=== PATIENT | female | born 1990 | race Caucasian/White ===

== ENCOUNTER 2016-06-26 10:29 | Emergency (ER) | payer OTHER ==
[2016-06-26] MEDS ORDERED: SODIUM CHLORIDE 0.9% 1,000 ML IV ONE (10:42)
[2016-06-26] MEDS ORDERED: ONDANSETRON 4 MG/2 ML VIAL IVP STA (10:55)
[2016-06-26] MEDS ORDERED: ONDANSETRON 4 MG/2 ML VIAL ONE (10:56)
[2016-06-26] MEDS ORDERED: ONDANSETRON ODT 4 MG TABLET ONE (11:01)
[2016-06-26] MEDS ORDERED: ONDANSETRON ODT 4 MG TABLET TL STA (11:13)
[2016-06-26] MEDS ORDERED: SODIUM CHLORIDE 0.9% 2,000 ML IV ONE (12:28)
== END 2016-06-26 16:28 | disposition home or self-care (01) ==
DX: E86.0 Dehydration (principal); R55 Syncope and collapse; R11.10 Vomiting, unspecified
CPT/HCPCS: 36415; 80053; 81003; 83605; 83690; 84703; 85025; 87040; 93005; 93010; 96361; 96374; 99284; Q0162

== ENCOUNTER 2016-12-08 13:33 | Emergency (ER) | payer OTHER ==
[2016-12-08 14:42] LABS: BILIRUBIN,URINE NEGATIVE (NEGATIVE)
[2016-12-08 14:43] LABS: UA w/ MICROSCOPIC CHARGE YES
--- NOTE | 2016-12-08 14:47 | ED Physician Documentation ---
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 She had heavy spotting yesterday, and has had bright red blood and a dime size clot today. She has had vomiting 2 in the past 24 hours. She denies fever or dysuria, and denies lightheadedness. She does not know her blood type. Review of Systems Constitutional: denies: Fever Nose: denies: Congestion Cardiac: denies: Chest pain / pressure Respiratory: denies: Dyspnea, Cough GI: reports: Vomiting. denies: Abdominal Pain : reports: Vaginal bleeding. 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 CLINICAL DATA ANALYST: Ovarian cysts - Past Surgical History Past Surgical History: No - Present Medications Home Medications: Ambulatory Orders Medication Instructions Recorded Confirmed Ondansetron Odt [Zofran] 4 mg TL Q6H PRN #10 tablet 06/26/16 - Allergies Allergies/Adverse Reactions: Allergies Allergy/AdvReac Type Severity Reaction Status Date / Time hydrocodone bitartrate * AdvReac Mild Nausea Verified 12/08/16 13:40 [From Lortab] - Social History Does the pt smoke?: No Smoking Status: Never smoker Does the pt drink ETOH?: No Does the pt have substance abuse?: No - Immunizations Immunizations are current?: Yes - POLST Patient has POLST: No PD ED PE NORMAL - Vitals Vital signs reviewed: Yes (Normal) - General General: 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, Well developed/nourished - HEENT HEENT: Atraumatic - Neck Neck: No adenopathy - Cardiac Cardiac: RRR, No murmur - Respiratory Respiratory: No respiratory distress, Clear bilaterally - Abdomen Abdomen: Soft, Non tender - Female Female : Wind Operations Manager present - Back Back: No CVA TTP - Derm Derm: No rash - Extremities Extremities: No edema, No calf tenderness / cord - Neuro Neuro: 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, No motor deficit, Normal speech PD ED PE EXPANDED - Female Female : Normal external, Vaginal Bleeding (Scant dark blood, with a small clot in the cervical loss.), CMT, Enlarged uterus (Consistent with dates.), Cultures sent, Wind Operations Manager present. No: Dilated cervix, Tissue present, Adnexal Mass, Adnexal Tenderness Results - Vitals Vitals: Vital Signs - 24 hr 12/08/16 12/08/16 13:37 17:42 Temperature 36.5 C Heart Rate 74 66 Respiratory 17 14 Rate Blood Pressure 102/60 105/63 O2 Saturation 100 98 Oxygen O2 Source Room air - Labs Labs: Laboratory Tests 12/08/16 12/08/16 12/08/16 13:55 14:22 14:22 HCG, Quant 45900.00 Urine Color YELLOW Urine Clarity CLEAR Urine pH 6.0 Ur Specific [place] >=1.030 H Urine Protein NEGATIVE Urine Glucose (UA) NEGATIVE Urine Ketones NEGATIVE Urine Occult Blood LARGE H Urine Nitrite NEGATIVE Urine Bilirubin NEGATIVE Urine Urobilinogen 0.2 (NORMAL) Ur Leukocyte Esterase NEGATIVE Urine RBC 6-10 H Urine WBC 0-3 Ur Squamous Epith Cells MOD Squamous H Urine Bacteria Rare Urine Mucus Marked Strands Ur Microscopic Review INDICATED Urine Culture Comments NOT INDICATED Blood Type A NEGATIVE - Rads (name of study) Pelvic U/S with Transvag Radiology: Prelim report reviewed, EMP read contemporaneously, See rad report ( 1. Single viable intrauterine at estimated gestational age of 7 weeks 2 days, with estimated date of delivery 07/29/2017, based on crown-rump length, which is less than expected with clinical dates. 2. Low heart rate of 39 bpm noted. 3. No ultrasound abnormalities identified to explain bleeding.) PD MEDICAL DECISION MAKING - ED course Complexity details: reviewed results, re-evaluated patient, considered differential, d/w patient, d/w family ED course: The patient's presentation is significant for threatened or inevitable miscarriage. Pelvic ultrasound reveals a single intrauterine , but with a low heart rate of 39. The patient is relatively asymptomatic while in the emergency department, denying any cramping pain or ongoing vaginal bleeding at the time of discharge. Her blood type is found to be Rh-, so RhoGAM was administered IM. I discussed her condition with Dr. Guevara, on-call for Dr. Hurst, the patient's fish frog or oyster farmer. Since the patient does not want to pursue any intervention at this time, Dr. Guevara advises that she follow-up in the clinic on Saturday. I discussed with the patient and her the results of the ultrasound and expected course of , symptomatic treatment and outpatient follow-up, as well as potentially worrisome signs or symptoms that should prompt reevaluation in the emergency department. Departure - Departure Disposition: Home, Self Care Clinical Impression: Threatened in first trimester Condition: Stable Instructions: ED Miscarriage Poss Follow-Up: Shyla Hurst MD [Primary Care Provider] - Comments: Plenty of fluids. He can use Tylenol if needed for pain. Follow-up with your fish frog or oyster farmer this week. Call to schedule an appointment. Return to the emergency department if you develop increasing cramping pelvic pain, increasing vaginal bleeding, or otherwise worsening symptoms. Discharge Date/Time: 12/08/16 17:42
[2016-12-08 14:54] LABS: UR CULTURE IF IND NOT INDICATED; WBC,URINE 0-3 /HPF (0-5)
--- NOTE | 2016-12-08 16:33 | Ultrasound Preliminary Report ---
Exam: US OB First Trimester IMPRESSION: 1. Single viable intrauterine at EGA 7 weeks 2 days with KYLEIGH 07/29/2017 based on crown-rump length, which is less than expected with clinical dates. 2. Assigned dating is KYLEIGH 07/29/2017 based on crown-rump length.. 3. Low heart rate of 39 bpm noted. 4. No ultrasound abnormalities identified to explain bleeding. [facility] SITE ID: [id number]
--- NOTE | 2016-12-08 16:36 | Ultrasound Report ---
REVISED: THIS REPORT WAS ORIGINALLY SIGNED ON 12/08/2016 @ 1636. ORDERS LINKED ON 12/11/2016. EXAM: FIRST TRIMESTER OBSTETRIC ULTRASOUND (Less than 11 weeks) EXAM DATE: 12/08/2016 04:07 PM. CLINICAL HISTORY: Vaginal bleeding at 8 weeks gestation. LMP: 09/21/2016. COMPARISONS: None. TECHNIQUE: Transabdominal and transvaginal ultrasound examination with static image documentation. CLINICAL DATES: EGA 11 weeks 1 day with KYLEIGH 06/28/2015 based on LMP. ASSESSMENT: Gestational Sac: Single intrauterine. Mean gestational sac diameter: 13.4 mm = 6 weeks 1 day. Embryo: CRL (crown-rump length) 10.8 mm = 7 weeks 2 days. Cardiac activity: 39 beats per minute. Yolk sac: 4.2 mm. Amniotic fluid: Not accurately assessed at this gestational age. Early placenta: Not visible at this gestational age. Other: No perigestational fluid collection demonstrated. MATERNAL STRUCTURES: Uterus: Anteverted. Unremarkable. Cervix: Closed. Right Ovary: 2.3 x 1.3 x 1.9 cm, volume 29.7 cc. Unremarkable. Left Ovary: 3.5 x 2.1 x 2.6 cm, volume 10.0 cc. Unremarkable. Free Fluid: None. Other: None. IMPRESSION: 1. Single viable intrauterine at EGA 7 weeks 2 days with KYLEIGH 2017 based on crown-rump length, which is less than expected with clinical dates. 2. Assigned dating is KYLEIGH 07/29/2017 based on crown-rump length.. 3. Low heart rate of 39 bpm noted. 4. No ultrasound abnormalities identified to explain bleeding. [facility] Referring Provider Line: [phone] SITE ID: [id number]
[2016-12-08] MEDS ORDERED: RHO(D) IMMUNE GLOBULIN 300 MCG SYRINGE IM ONE (17:04)
[2016-12-08 17:43] VITALS: BP 105/63
== END 2016-12-08 17:42 | disposition home or self-care (01) ==
LOC: ED 13:33
DX: O20.0 Threatened abortion (principal); Z3A.08 8 weeks gestation of pregnancy
CPT/HCPCS: 36415; 76801; 76817; 81001; 81003; 84702; 86900; 86901; 87086; 87491; 87591; 96372; 99283; 99284

== ENCOUNTER 2016-12-27 03:08 | Emergency (ER) | payer OTHER ==
[2016-12-27] MEDS ORDERED: SODIUM CHLORIDE 0.9% 1,000 ML IV ONE ×2 (03:26→04:49)
[2016-12-27] MEDS ORDERED: ONDANSETRON 4 MG/2 ML VIAL IVP STA ×2 (03:26→06:07)
[2016-12-27] MEDS ORDERED: HYDROmorphone 1 MG/ML SYRINGE IVP STA (03:42)
[2016-12-27 03:44] LABS: BASOPHILS # (AUTO) 0.1 10^3/uL (0.0-0.1); BASOPHILS % (AUTO) 1.2 %; EOSINOPHILS # (AUTO) 0.2 10^3/uL (0.0-0.7); EOSINOPHILS % (AUTO) 3.7 %; HCT - HEMATOCRIT 33.9 % (37.0-47.0); HGB - HEMOGLOBIN 11.3 g/dL (12.0-16.0); LYMPHOCYTES # (AUTO) 1.8 10^3/uL (1.5-3.5); LYMPHOCYTES % (AUTO) 31.9 %; MEAN CORPUSCULAR HEMOGLOBIN 29.9 pg (27.0-31.0); MEAN CORPUSCULAR HGB CONC 33.5 g/dL (32.0-36.0); MEAN CORPUSCULAR VOLUME 89.1 fL (81.0-99.0); MEAN PLATELET VOLUME 7.4 fL (7.9-10.8); MONOCYTES # (AUTO) 0.4 10^3/uL (0.0-1.0); MONOCYTES % (AUTO) 7.4 %; NEUTROPHILS # (AUTO) 3.1 10^3/uL (1.5-6.6); NEUTROPHILS % (AUTO) 55.8 %; RED CELL DISTRIBUTION WIDTH 14.2 % (12.0-15.0); UNCORRECTED WHITE BLOOD COUNT 5.5 x10^3/uL; WHITE BLOOD COUNT 5.5 x10^3/uL (4.8-10.8)
[2016-12-27] MEDS ORDERED: ONDANSETRON 4 MG/2 ML VIAL ONE ×2 (03:46→06:21)
[2016-12-27] MEDS ORDERED: HYDROmorphone 1 MG/ML SYRINGE ONE (03:51)
[2016-12-27 03:58] LABS: ALBUMIN/GLOBULIN RATIO 1.5 (1.0-2.2); BILIRUBIN,TOTAL 0.4 mg/dL (0.2-1.0); BUN - BLOOD UREA NITROGEN 11 mg/dL (6-20); CARBON DIOXIDE - CO2 25 mmol/L (21-32); CHLORIDE 107 mmol/L (101-111); CREATININE 0.9 mg/dL (0.4-1.0); GFR - MDRD 75 (>89); GLUCOSE 113 mg/dL (70-100); LIPASE 48 U/L (22-51); POTASSIUM 3.6 mmol/L (3.5-5.0); SODIUM 140 mmol/L (135-145); TOTAL PROTEIN 6.6 g/dL (6.7-8.2)
[2016-12-27 05:30] VITALS: BP 105/64
--- NOTE | 2016-12-27 06:33 | ED Physician Documentation ---
PD HPI ABD PAIN - Stated complaint Stated Complaint: VOMITING,ABDOMINAL PAIN - Chief complaint Chief Complaint: Abd Pain - History obtained from History obtained from: Patient - Additional information Additional information: Is a 26-year-old female who presents to the onset of nausea and vomiting starting early this morning. She complains of generalized abdominal cramping that is not localized. She denies any preceding illness and has not had any fever, chills, constipation diarrhea or lower urinary symptoms. The patient recently had a miscarriage a couple weeks ago. There is no further vaginal bleeding or discharge. Review of systems: For pertinent positive and negatives in the review of systems please see the history of present illness, otherwise all other systems have been reviewed and are negative. Dragon disclaimer: Parts of this medical record were created using voice recognition technology. Because of the inherent limitations of this system, occasional same sounding word substitutions do occur and persist despite proofreading. Please read the document for context. Review of Systems Constitutional: denies: Fever, Chills GI: reports: Abdominal Pain, Nausea, Vomiting. denies: Abdominal Swelling, Constipation, Diarrhea, Hematemesis, Bloody / black stool : denies: Dysuria PD PAST MEDICAL HISTORY - Past Medical History Cardiovascular: None Respiratory: None Neuro: None Endocrine/Autoimmune: None ENGRAVER PANTOGRAPH: Ovarian cysts - Past Surgical History Past Surgical History: No - Present Medications Home Medications: Ambulatory Orders Medication Instructions Recorded Confirmed Ondansetron Odt [Zofran] 4 mg TL Q6H PRN #14 tablet 12/27/16 traZODone [Desyrel] 1 tab PO DAILY 12/27/16 12/27/16 - Allergies Allergies/Adverse Reactions: Allergies Allergy/AdvReac Type Severity Reaction Status Date / Time hydrocodone bitartrate * AdvReac Mild Nausea Verified 12/08/16 13:40 [From Lortab] - Social History Does the pt smoke?: No Smoking Status: Never smoker Does the pt drink ETOH?: No Does the pt have substance abuse?: No - Immunizations Immunizations are current?: Yes - POLST Patient has POLST: No PD ED PE NORMAL - Vitals Vital signs reviewed: Yes - General General: 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 - HEENT HEENT: Atraumatic - Neck Neck: Supple, no meningeal sign - Cardiac Cardiac: RRR, No murmur, No gallop, No rub - Respiratory Respiratory: No respiratory distress, Clear bilaterally - Abdomen Abdomen: Normal bowel sounds, Non tender - Female Female : Deferred - Back Back: No CVA TTP - Derm Derm: Normal color - Extremities Extremities: No deformity - Neuro Neuro: 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 Results - Vitals Vitals: Vital Signs - 24 hr 12/27/16 12/27/16 12/27/16 03:19 04:25 05:30 Temperature 36.5 C 36.7 C Heart Rate 84 95 88 Respiratory 16 14 15 Rate Blood Pressure 117/96 H 106/67 105/64 O2 Saturation 100 98 98 Oxygen O2 Source Room air - Labs Labs: Laboratory Tests 12/27/16 12/27/16 12/27/16 03:29 03:29 03:29 WBC 5.5 RBC 3.80 L Hgb 11.3 L Hct 33.9 L MCV 89.1 MCH 29.9 MCHC 33.5 RDW 14.2 Plt Count 220 MPV 7.4 L Neut # 3.1 Lymph # 1.8 [place] # 0.4 Eos # 0.2 Baso # 0.1 Absolute Nucleated RBC 0.00 Nucleated RBCs 0.0 Sodium 140 Potassium 3.6 Chloride 107 Carbon Dioxide 25 Anion Gap 8.0 BUN 11 Creatinine 0.9 Estimated GFR (MDRD) 75 L Glucose 113 H Calcium 9.0 Total Bilirubin 0.4 AST 24 ALT < 10 L Alkaline Phosphatase 43 Total Protein 6.6 L Albumin 4.0 Globulin 2.6 Albumin/Globulin Ratio 1.5 Lipase 48 HCG, Quant 73.71 PD MEDICAL DECISION MAKING - ED course Complexity details: reviewed old records ED course: Patient is a well-appearing young female presents with a chief complaint of nausea and vomiting onset early this morning. She is complaining of generalized abdominal cramping but on examination is a soft nontender abdomen. There is mild increased borborygmi. An IV line was started she is given IV fluids and nausea medications. Patient slept for a couple hours 2 L of normal saline were given and she has not had any further episodes of nausea and vomiting. Routine labs are checked and all are normal. She never produced a urine but felt much better and wanted to go home and I thought her urine is probably low yield for problem. At this point in time she looks and feels better she will be discharged home on a small amount of Zofran. Disposition: To home Clinical impression: 1. Acute nausea and vomiting-resolved Departure - Departure Disposition: Home, Self Care Clinical Impression: Abdominal pain Qualifiers: Abdominal location: generalized Qualified Code(s): R10.84 - Generalized abdominal pain Nausea & vomiting Qualifiers: Vomiting type: unspecified Vomiting Intractability: non-intractable Qualified Code(s): R11.2 - Nausea with vomiting, unspecified Instructions: ED Nausea Vomiting Follow-Up: Khurram Thomas ARNP [Primary Care Provider] - Prescriptions: Ondansetron Odt [Zofran] 4 mg TL Q6H PRN #14 tablet PRN Reason: Nausea / Vomiting Discharge Date/Time: 12/27/16 06:21
== END 2016-12-27 06:21 | disposition home or self-care (01) ==
LOC: ED 03:08
DX: R10.84 Generalized abdominal pain (principal)
CPT/HCPCS: 36415; 80053; 83690; 84702; 85025; 96374; 96375; 96376; 99283; 99284; J1170

== ENCOUNTER 2017-02-24 08:55 | Emergency (ER) | payer OTHER ==
[2017-02-24] MEDS ORDERED: SODIUM CHLORIDE FLUSH 0.9% 10 ML SYRINGE IVP ONE ×3 (09:11→13:31)
--- NOTE | 2017-02-24 09:19 | ED Physician Documentation ---
PD HPI ABD PAIN - Stated complaint Stated Complaint: ABD PX - Chief complaint Chief Complaint: Abd Pain - History obtained from History obtained from: Patient, Family - History of Present Illness Timing - onset: Enter time (0100), Last night Timing - duration: Hours Timing - details: Abrupt onset, Still present Quality: Sharp, Pain Location: Suprapubic Improved by: Laying still Worsened by: Moving, Position, Palpation Associated symptoms: Constipation. No: Fever, Nausea, Vomiting Similar symptoms before: Has not had sx before Recently seen: Other (Seen for SI with attempted overdose on hydrocodone 25 days ago.) - Additional information Additional information: 26-year-old female recovering alcoholic has developed acute abdominal pain last night and she has asked her to bring her to the hospital this morning. The patient is not answering questions and is withdrawn. The indicates she has done this previously with painful conditions. He indicates that recently she has had a miscarriage And about 2 months ago she had a D&C done. On her first menstrual period following that she had significant pain associated with the menstrual period And at that time she became withdrawn. The patient has a history of constipation chronically usually has bowel movements every 2-3 days. She has gone 10 days without a bowel movement and yesterday had a bowel movement. The patient has a history of alcoholism and she had been sober for 24 days and began drinking 2 nights ago. She has been taking some ibuprofen for her pains. She last took that yesterday. Review of Systems Constitutional: denies: Fever Ears: denies: Ear pain Nose: denies: Congestion Throat: denies: Sore throat Cardiac: denies: Chest pain / pressure, Palpitations Respiratory: denies: Dyspnea, Cough GI: reports: Abdominal Pain, Constipation. denies: Nausea, Vomiting : denies: Dysuria, Frequency Skin: denies: Rash Musculoskeletal: denies: Neck pain, Back pain, Extremity pain Neurologic: denies: Generalized weakness, Focal weakness, Numbness Psychiatric: reports: Depressed PD PAST MEDICAL HISTORY - Past Medical History Past Medical History: Yes Cardiovascular: None Respiratory: None Neuro: None Endocrine/Autoimmune: None CAT BREEDER: Ovarian cysts, Miscarriage(s) Psych: Depression, Other Other Past Medical History: SI - Past Surgical History Past Surgical History: Yes /CAT BREEDER: Dilation and currettage - Present Medications Home Medications: Ambulatory Orders Medication Instructions Recorded Confirmed traZODone [Desyrel] 1 tab PO DAILY 12/27/16 02/24/17 Prochlorperazine Maleate 10 mg PO Q6HR PRN #10 tablet 02/24/17 [Compazine] Sulfamethoxazole/Trimethoprim 1 each PO BID #10 tablet 02/24/17 [Sulfamethoxazole-Tmp Ds Tablet] Venlafaxine [Effexor] 75 mg PO BID 02/24/17 02/24/17 traMADol [Ultram] 50 mg PO Q6H PRN #20 tablet 02/24/17 - Allergies Allergies/Adverse Reactions: Allergies Allergy/AdvReac Type Severity Reaction Status Date / Time hydrocodone bitartrate * AdvReac Mild Nausea Verified 02/24/17 11:24 [From Lortab] - Social History Does the pt smoke?: No Smoking Status: Never smoker Does the pt drink ETOH?: Yes Does the pt have substance abuse?: No - Immunizations Immunizations are current?: Yes - POLST Patient has POLST: No PD ED PE NORMAL - Vitals Vital signs reviewed: Yes (normal ) - General General: Other (Thin female in the position does not answer questions. AOB ) - HEENT HEENT: Atraumatic, PERRL, EOMI - Neck Neck: Supple, no meningeal sign, No bony TTP - Cardiac Cardiac: RRR, No murmur - Respiratory Respiratory: No respiratory distress, Clear bilaterally - Abdomen Abdomen: Other (The abdomen is rigid and there is gaurding the examining hand is pushed away. ) - Back Back: No CVA TTP, No spinal TTP - Derm Derm: Normal color, Warm and dry, No rash - Extremities Extremities: No deformity, No edema - Neuro Neuro: No motor deficit, No sensory deficit - Psych Psych: Other (mood is withdrawn and the affect is flat) Results - Vitals Vitals: Vital Signs - 24 hr 02/24/17 02/24/17 02/24/17 08:58 10:29 11:35 Temperature 36.8 C 36.8 C Heart Rate 72 99 96 Respiratory 18 20 16 Rate Blood Pressure 108/79 107/57 L 114/43 L O2 Saturation 100 100 100 02/24/17 13:39 Temperature Heart Rate 77 Respiratory 14 Rate Blood Pressure 107/61 O2 Saturation 100 Oxygen O2 Source Room air - Labs Labs: Laboratory Tests 10/02/24/17 02/24/17 09:16 09:16 10:45 WBC 6.6 RBC 4.40 Hgb 12.7 Hct 37.6 MCV 85.3 MCH 28.8 MCHC 33.7 RDW 14.1 Plt Count 249 MPV 8.1 Neut # 3.4 Lymph # 2.6 [place] # 0.4 Eos # 0.1 Baso # 0.1 Absolute Nucleated RBC 0.00 Nucleated RBC % 0.0 Sodium 139 Potassium 3.4 L Chloride 106 Carbon Dioxide 23 Anion Gap 10.0 BUN 8 Creatinine 0.9 Estimated GFR (MDRD) 75 L Glucose 98 Calcium 9.0 Total Bilirubin 0.6 AST 32 ALT 12 Alkaline Phosphatase 47 Total Protein 7.1 Albumin 4.4 Globulin 2.7 Albumin/Globulin Ratio 1.6 Lipase 35 Urine Color Urine Clarity Urine pH Ur Specific [place] Urine Protein Urine Glucose (UA) Urine Ketones Urine Occult Blood Urine Nitrite Urine Bilirubin Urine Urobilinogen Ur Leukocyte Esterase Urine RBC Urine WBC Ur Squamous Epith Cells Urine Bacteria Ur Microscopic Review Urine Culture Comments Urine HCG, Qual Urine Opiates Screen NEGATIVE Ur Oxycodone Screen NEGATIVE Urine Methadone Screen NEGATIVE Ur Propoxyphene Screen NEGATIVE Ur Barbiturates Screen NEGATIVE Ur Tricyclics Screen NEGATIVE Ur Phencyclidine Scrn NEGATIVE Ur Amphetamine Screen NEGATIVE U Methamphetamines Scrn POSITIVE H U Benzodiazepines Scrn POSITIVE H Urine Cocaine Screen NEGATIVE U Cannabinoids Screen NEGATIVE Ethyl Alcohol 140.9 02/24/17 10:45 WBC RBC Hgb Hct MCV MCH MCHC RDW Plt Count MPV Neut # Lymph # [place] # Eos # Baso # Absolute Nucleated RBC Nucleated RBC % Sodium Potassium Chloride Carbon Dioxide Anion Gap BUN Creatinine Estimated GFR (MDRD) Glucose Calcium Total Bilirubin AST ALT Alkaline Phosphatase Total Protein Albumin Globulin Albumin/Globulin Ratio Lipase Urine Color YELLOW Urine Clarity CLOUDY Urine pH 5.5 Ur Specific [place] >=1.030 H Urine Protein 30 H Urine Glucose (UA) NEGATIVE Urine Ketones NEGATIVE Urine Occult Blood LARGE H Urine Nitrite NEGATIVE Urine Bilirubin NEGATIVE Urine Urobilinogen 0.2 (NORMAL) Ur Leukocyte Esterase NEGATIVE Urine RBC TNTC H Urine WBC 6-10 H Ur Squamous Epith Cells FEW Squamous Urine Bacteria Moderate H Ur Microscopic Review INDICATED Urine Culture Comments INDICATED Urine HCG, Qual NEGATIVE Urine Opiates Screen Ur Oxycodone Screen Urine Methadone Screen Ur Propoxyphene Screen Ur Barbiturates Screen Ur Tricyclics Screen Ur Phencyclidine Scrn Ur Amphetamine Screen U Methamphetamines Scrn U Benzodiazepines Scrn Urine Cocaine Screen U Cannabinoids Screen Ethyl Alcohol - Rads (name of study) CT abdomen pelvis with Radiology: Prelim report reviewed (Impression: 1. No acute inflammatory or obstructive process identified. Normal retrocecal appendix. No free air or fluid free fluid. 2. Apparent thickening of the proximal proximal jejunum, likely artifactual related to lumen contraction. Contracted stomach. 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.), EMP read indepedently, See rad report Pelvic ultrasound Radiology: Prelim report reviewed (Impression: Uterus and ovaries appear normal for age.), EMP read indepedently, See rad report Procedures - IVC sono (time) 1338 Bedside IVC sono: IVC measures (cm) (0.69), IVC collapsed c insp (cm) (complete) , Significant dehydration PD MEDICAL DECISION MAKING - ED course Complexity details: reviewed old records, reviewed results, re-evaluated patient , considered differential, d/w patient, d/w family ED course: 26 y/o female with lower abdominal pain severe today appears withdrawn on arrival and in pain. She is found to be significantly dehydrated and saline and antiemetic is applied. She has had severe pain last month under similar situation with her menstral period. Her indicates she has been withdrawn with pain previously similar to this. As she is hydrated and her pain is controlled she begins to talk. Her alcohol level comes back at 140 and her urine is + for benzo and methamphetamine and she denies meth use. She is on Trazodone and this is a known interference with the assay. She does not have adequate control of the nausea with the zofran or the phenergan and she is given compazine with some improvement. She has UTI on evaluation of the urine and she is given IV rocephin and we will put her on some sulfa. Departure - Departure Disposition: 01 Home, Self Care Clinical Impression: Dehydration, Dysmenorrhea Urinary tract infection Qualifiers: Urinary tract infection type: acute cystitis Hematuria presence: without hematuria Qualified Code(s): N30.00 - Acute cystitis without hematuria Instructions: ED Dehydration, ED UTI Cystitis Female, ED Cramping Menstrual Follow-Up: Khurram Thomas ARNP [Primary Care Provider] - Prescriptions: Prochlorperazine Maleate [Compazine] 10 mg PO Q6HR PRN #10 tablet PRN Reason: Nausea / Vomiting Sulfamethoxazole/Trimethoprim [Sulfamethoxazole-Tmp Ds Tablet] 1 each PO BID # 10 tablet traMADol [Ultram] 50 mg PO Q6H PRN #20 tablet PRN Reason: Pain
[2017-02-24 09:23] LABS: BASOPHILS # (AUTO) 0.1 10^3/uL (0.0-0.1); BASOPHILS % (AUTO) 1.2 %; EOSINOPHILS # (AUTO) 0.1 10^3/uL (0.0-0.7); EOSINOPHILS % (AUTO) 1.6 %; HCT - HEMATOCRIT 37.6 % (37.0-47.0); HGB - HEMOGLOBIN 12.7 g/dL (12.0-16.0); LYMPHOCYTES # (AUTO) 2.6 10^3/uL (1.5-3.5); LYMPHOCYTES % (AUTO) 39.8 %; MEAN CORPUSCULAR HEMOGLOBIN 28.8 pg (27.0-31.0); MEAN CORPUSCULAR HGB CONC 33.7 g/dL (32.0-36.0); MEAN CORPUSCULAR VOLUME 85.3 fL (81.0-99.0); MEAN PLATELET VOLUME 8.1 fL (7.9-10.8); MONOCYTES # (AUTO) 0.4 10^3/uL (0.0-1.0); MONOCYTES % (AUTO) 6.5 %; NEUTROPHILS # (AUTO) 3.4 10^3/uL (1.5-6.6); NEUTROPHILS % (AUTO) 50.9 %; RED CELL DISTRIBUTION WIDTH 14.1 % (12.0-15.0); UNCORRECTED WHITE BLOOD COUNT 6.6 x10^3/uL; WHITE BLOOD COUNT 6.6 x10^3/uL (4.8-10.8)
[2017-02-24 09:39] LABS: ALBUMIN/GLOBULIN RATIO 1.6 (1.0-2.2); BILIRUBIN,TOTAL 0.6 mg/dL (0.2-1.0); CREATININE 0.9 mg/dL (0.4-1.0); POTASSIUM 3.4 mmol/L (3.5-5.0); TOTAL PROTEIN 7.1 g/dL (6.7-8.2)
[2017-02-24] MEDS ORDERED: ONDANSETRON 4 MG/2 ML VIAL IVP STA ×2 (09:43→10:17)
[2017-02-24] MEDS ORDERED: SODIUM CHLORIDE 0.9% 1,000 ML IV ONE ×3 (09:45→14:18)
[2017-02-24] MEDS ORDERED: ONDANSETRON 4 MG/2 ML VIAL ONE ×2 (09:45→10:26)
[2017-02-24] MEDS ORDERED: IOPAMIDOL-300 100 ML VIAL ONE (10:46)
[2017-02-24 11:00] LABS: BILIRUBIN,URINE NEGATIVE (NEGATIVE); PH,URINE 5.5 PH (5.0-7.5)
[2017-02-24 11:16] LABS: UA w/ MICROSCOPIC CHARGE YES
[2017-02-24 11:20] LABS: HCG UR QUAL NEGATIVE
[2017-02-24] MEDS ORDERED: PROMETHAZINE INJ 25 MG in SODIUM CHLORIDE 0.9% 50 ML IV STA (11:22)
[2017-02-24 11:23] LABS: UR CULTURE IF IND INDICATED
[2017-02-24] MEDS ORDERED: PROMETHAZINE 25 MG/1 ML VIAL ONE (11:31)
--- NOTE | 2017-02-24 12:14 | CT Preliminary Report ---
Exam: CT ABDOMEN/PELVIS W/ IMPRESSION: 1. No acute inflammatory or obstructive process identified. Normal retrocecal appendix. No free air o r free fluid. 2. Apparent thickening of proximal jejunum, likely artifactual related to luminal contraction. Contra cted stomach. 3. 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 [facility] SITE ID: [id number]
--- NOTE | 2017-02-24 12:17 | CT Report ---
EXAM: CT ABDOMEN AND PELVIS EXAM DATE: 02/24/2017 11:13 AM. CLINICAL HISTORY: Acute abdominal pain, rigid abdomen. COMPARISONS: Abdominal ultrasound 02/13/2016. TECHNIQUE: Routine helical CT imaging was performed through the abdomen and pelvis. IV contrast: 100 cc Isovue-300. Enteric contrast: No. Reconstructions: Coronal and sagittal. In accordance with CT protocol optimization, one or more of the following dose reduction techniques w ere utilized for this exam: automated exposure control, adjustment of mA and/or KV based on patient s ize, or use of iterative reconstructive technique. FINDINGS: Lung Bases: Clear. Liver: Normal size and contour. Slight steatosis. A calcified granuloma in the left lobe. No other fo otis lesion. Widely patent vasculature. Gallbladder/Bile Ducts: No calcified gallstone, gallbladder wall thickening, or ductal dilatation. Spleen: No splenomegaly. Pancreas: Somewhat generous pancreatic head with right lateral extension, likely developmental varian t. No ductal dilatation or peripancreatic infiltration. Adrenal Glands: No nodule. Kidneys: Unremarkable. No hydronephrosis or abnormal parenchymal enhancement. Peritoneal Cavity/Bowel: Contracted stomach. Apparent thickening of proximal jejunum, without perient maximilian infiltration, question artifactual related to luminal contraction. No intestinal dilatation. Nor mal retrocecal appendix. No free fluid, free air, loculated collection, or phlegmon identified. No me senteric adenopathy by CT size criteria. Pelvic Organs: Contracted bladder. 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 No ovarian cysts. No free fluid. Vasculature: No aneurysms or other significant abnormality. Bones: No significant abnormality. IMPRESSION: 1. No acute inflammatory or obstructive process identified. Normal retrocecal appendix. No free air o r free fluid. 2. Apparent thickening of proximal jejunum, likely artifactual related to luminal contraction. Contra cted stomach. 3. 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 [facility] Referring Provider Line: [phone] SITE ID: [id number]
[2017-02-24] MEDS ORDERED: cefTRIAXone 1 GM in SODIUM CHLORIDE 0.9% MINIBAG 100 ML IV STA (13:17)
[2017-02-24] MEDS ORDERED: cefTRIAXone 1 GM VIAL ONE (13:31)
--- NOTE | 2017-02-24 13:37 | Ultrasound Preliminary Report ---
Exam: US PELVIC NON OB W/DOPPLER IMPRESSION: Uterus and ovaries appear normal for age. [facility] SITE ID: [id number]
--- NOTE | 2017-02-24 13:40 | Ultrasound Report ---
EXAM: PELVIC ULTRASOUND EXAM DATE: 02/24/2017 12:53 PM. CLINICAL HISTORY: Pelvic pain ?torsion. COMPARISON: Pelvic CT today. TECHNIQUE: Realtime transabdominal pelvic scan performed to identify the uterus and adnexa and as an overview of other pelvic structures, with static image documentation. FINDINGS: Uterus: 7.5 x 4.1 x 4.9 cm, volume 81 cc. Anteverted position. Normal overall size and echotexture. Masses: None. Endometrium: 10.5 mm. Normal. Cervix: Unremarkable. Right Ovary: 2.9 x 1.6 x 2.5 cm, volume 6.2 cc. There are multiple small follicles. Blood flow presen t on Doppler. Left Ovary: 3 x 2.1 x 2.0 cm, volume 6.5 cc. There are multiple small follicles. Blood flow seen on D oppler. Free Fluid: Small Other: None. IMPRESSION: Uterus and ovaries appear normal for age. [facility] Referring Provider Line: [phone] SITE ID: [id number]
[2017-02-24] MEDS ORDERED: KETOROLAC 60 MG/2 ML VIAL IVP STA (13:45)
[2017-02-24] MEDS ORDERED: KETOROLAC 60 MG/2 ML VIAL ONE (13:56)
[2017-02-24] MEDS ORDERED: PROCHLORPERAZINE 10 MG/2 ML VIAL IVP STA (14:38)
[2017-02-24] MEDS ORDERED: diphenhydrAMINE INJ 50 MG/ML VIAL IVP STA (14:39)
[2017-02-24] MEDS ORDERED: diphenhydrAMINE INJ 50 MG/ML VIAL ONE (14:45)
[2017-02-24] MEDS ORDERED: PROCHLORPERAZINE 10 MG/2 ML VIAL ONE (14:46)
[2017-02-24 15:46] VITALS: BP 104/57
[2017-02-24] MEDS ORDERED: IOPAMIDOL-300 100 ML VIAL IVP ONE (17:36)
== END 2017-02-24 16:00 | disposition home or self-care (01) ==
LOC: ED 08:55
DX: E86.0 Dehydration (principal); N94.6 Dysmenorrhea, unspecified; N30.00 Acute cystitis without hematuria; R11.0 Nausea
CPT/HCPCS: 36415; 74177; 76856; 80053; 80306; 80320; 81001; 81025; 83690; 85025; 87040; 87086; 93975; 96361; 96365; 96367; 96375; 96376; 99283; 99284; J7040; Q9967; 81003

== ENCOUNTER 2017-04-17 04:40 | Emergency (ER) | payer OTHER ==
[2017-04-17] MEDS ORDERED: ONDANSETRON 4 MG/2 ML VIAL IVP STA ×2 (04:50→05:48)
[2017-04-17] MEDS ORDERED: SODIUM CHLORIDE 0.9% 1,000 ML IV ONE (04:50)
[2017-04-17] MEDS ORDERED: FAMOTIDINE 20 MG/2 ML VIAL IVP STA (04:51)
--- NOTE | 2017-04-17 04:55 | ED Physician Documentation ---
PD HPI NVD - Stated complaint Stated Complaint: NAUSEA,VOMITING,DIARRHEA - Chief complaint Chief Complaint: Abd Pain - History obtained from History obtained from: Patient - History of Present Illness Timing - onset: Yesterday Timing - details: Gradual onset, Still present Associated symptoms: Abdominal pain. No: Fever Similar symptoms before: No diagnosis Recently seen: Not recently seen - Additonal information Additional information: Patient is a 26 year old female with no significant past medical history who is presenting to the emergency department for nausea, vomiting and diarrhea. patient states that it started yesterday. throughout the day she has not been able to hold down anything including pedialyte and applesauce. Patient states that she did take her trazadone, but she woke up in the middle of the night with sweats and through up again. Patient denies any change in diet or sick contacts. Review of Systems Constitutional: denies: Fever, Chills Eyes: denies: Decreased vision, Photophobia Ears: denies: Ear pain, Drainage/discharge Nose: denies: Congestion Throat: reports: Reviewed and negative Respiratory: reports: Reviewed and negative GI: reports: Abdominal Pain, Nausea, Vomiting, Diarrhea : reports: Reviewed and negative Skin: reports: Reviewed and negative Musculoskeletal: denies: Neck pain, Back pain, Extremity pain Neurologic: reports: Generalized weakness. 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(s) Psych: Depression, Other - Past Surgical History Past Surgical History: Yes /CENTRIFUGAL CHILLER TECHNICIAN: Dilation and currettage - Present Medications Home Medications: Ambulatory Orders Medication Instructions Recorded Confirmed traZODone [Desyrel] 1 tab PO DAILY 12/27/16 04/17/17 Ondansetron Odt [Zofran] 4 mg TL Q6H PRN #14 tablet 04/17/17 - Allergies Allergies/Adverse Reactions: Allergies Allergy/AdvReac Type Severity Reaction Status Date / Time hydrocodone bitartrate * AdvReac Mild Nausea Verified 04/17/17 04:45 [From Lortab] - Social History Does the pt smoke?: No Smoking Status: Never smoker Does the pt drink ETOH?: Yes Does the pt have substance abuse?: No - Immunizations Immunizations are current?: Yes - POLST Patient has POLST: No PD ED PE NORMAL - Vitals Vital signs reviewed: Yes - General General: 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 - HEENT HEENT: Atraumatic, PERRL - Neck Neck: Supple, no meningeal sign, No JVD - Cardiac Cardiac: RRR, No murmur - Respiratory Respiratory: No respiratory distress, Clear bilaterally - Abdomen Abdomen: Soft - Derm Derm: Normal color, Warm and dry, No rash - Extremities Extremities: No deformity, No edema - Neuro Neuro: 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, No motor deficit, No sensory deficit, Normal speech Eye Opening: Spontaneous Motor: Obeys Commands Verbal: Oriented GCS Score: 15 PD ED PE EXPANDED - HEENT HEENT: Dry mucous membranes - Abdomen Abdomen: Tender to palpation, Generalized/diffuse. No: Rebound, Guarding Results - Vitals Vitals: Vital Signs - 24 hr 04/17/17 04:43 Temperature 36.4 C L Heart Rate 71 Respiratory 16 Rate Blood Pressure 108/76 O2 Saturation 100 Oxygen O2 Source Room air - Labs Labs: Laboratory Tests 04/17/17 04:50 Urine Color YELLOW Urine Clarity CLEAR Urine pH 6.0 Ur Specific [place] >=1.030 H Urine Protein NEGATIVE Urine Glucose (UA) NEGATIVE Urine Ketones NEGATIVE Urine Occult Blood NEGATIVE Urine Nitrite NEGATIVE Urine Bilirubin NEGATIVE Urine Urobilinogen 0.2 (NORMAL) Ur Leukocyte Esterase NEGATIVE Ur Microscopic Review NOT INDICATED Urine Culture Comments NOT INDICATED Urine HCG, Qual NEGATIVE PD MEDICAL DECISION MAKING - ED course Complexity details: reviewed old records, reviewed results, re-evaluated patient , considered differential, d/w patient ED course: Patient was seen and examined at bedside. Patient's vital signs were within normal limits. IV access was gained. patient was treated with a fluid bolus, pepcid and zofran. Patient's urine was collected and showed no ketonuria, or severe concentration. Patient was well appearing and required no further work up at this time. Patient was stable for discharge with outpatient follow up. Departure - Departure Disposition: 01 Home, Self Care Clinical Impression: Gastroenteritis Condition: Good Instructions: ED Gastroenteritis Viral Follow-Up: Khurram Thomas ARNP [Primary Care Provider] - Within 3 Days (if symptoms persist) Prescriptions: Ondansetron Odt [Zofran] 4 mg TL Q6H PRN #14 tablet PRN Reason: Nausea / Vomiting Comments: Your symptoms today are being caused by gastroenteritis. It is normally self limited meaning it will get better over the next few days. it is important to take the zofran for nausea and drink gatorade, pedialyte or other electrolyte solution to stay hydrated. You shoudl follow up with your doctor if your symptoms persist for more than the next three days. You may return to the emergency department at any time for new, worsening or uncontrollable symptoms. Forms: Activity restrictions
[2017-04-17] MEDS ORDERED: ONDANSETRON 4 MG/2 ML VIAL ONE ×2 (04:59→05:53)
[2017-04-17 05:04] LABS: BILIRUBIN,URINE NEGATIVE (NEGATIVE)
[2017-04-17 05:15] LABS: HCG UR QUAL NEGATIVE; UA CHARGE (STRIP ONLY) YES; UR CULTURE IF IND NOT INDICATED
[2017-04-17] MEDS ORDERED: FAMOTIDINE 20 MG/50 ML 50 ML IV ONE ×2 (05:16→05:21)
[2017-04-17 06:29] VITALS: BP 120/61
== END 2017-04-17 06:34 | disposition home or self-care (01) ==
LOC: ED 04:40
DX: K52.9 Noninfective gastroenteritis and colitis, unspecified (principal)
CPT/HCPCS: 81001; 81003; 81025; 87086; 96361; 96365; 96375; 96376; 99284

== ENCOUNTER 2017-07-18 04:10 | Emergency (ER) | payer OTHER ==
[2017-07-18] MEDS ORDERED: SODIUM CHLORIDE 0.9% 1,000 ML IV ONE (04:29)
[2017-07-18] MEDS ORDERED: ONDANSETRON 4 MG/2 ML VIAL IVP STA (04:29)
[2017-07-18 04:38] LABS: BILIRUBIN,URINE NEGATIVE (NEGATIVE); GLUCOSE, URINE (UA) NEGATIVE (NEGATIVE); KETONES,URINE (UA) 15 mg/dL (NEGATIVE); LEUKOCYTE ESTERASE, URINE NEGATIVE (NEGATIVE); NITRITE,URINE NEGATIVE (NEGATIVE); OCCULT BLOOD,URINE LARGE (NEGATIVE); PH,URINE 5.5 PH (5.0-7.5); PROTEIN,URINE 100 mg/dL (NEGATIVE); UROBILINOGEN,URINE 0.2 (NORMAL) E.U./dL (NORMAL)
[2017-07-18 04:51] LABS: CLARITY,URINE HAZY (CLEAR); HCG UR QUAL NEGATIVE
[2017-07-18 04:52] LABS: BACTERIA,URINE Few /HPF (None Seen); RBC,URINE TNTC /HPF (0-5); SQUAMOUS EPITHELIAL CELL,UR MOD Squamous (<= Few)
[2017-07-18] MEDS ORDERED: ONDANSETRON ODT 4 MG TABLET TL STA ×2 (04:52→05:40)
[2017-07-18] MEDS ORDERED: PROMETHAZINE 25 MG SUPP PR STA (04:53)
--- NOTE | 2017-07-18 04:58 | ED Physician Documentation ---
PD HPI NVD - Stated complaint Stated Complaint: NAUSEA - Chief complaint Chief Complaint: Abd Pain - History obtained from History obtained from: Family - History of Present Illness Timing - onset: Today Timing - details: Abrupt onset, Still present Associated symptoms: No: Fever, Abdominal pain Contributing factors: No: Sick contact, Bad food Similar symptoms before: Work up / diagnostics, Treatment Recently seen: Not recently seen - Additonal information Additional information: Patient is a 26 year old female with a history of alcohol abuse and multiple visits for abdominal pain, nausea and vomiting who is presenting to the emergency department for vomiting. states that she started vomiting tonight but patient refuses to answer any questions. 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) Psych: Depression, Other - Past Surgical History Past Surgical History: Yes /SIZING SPONGER: Dilation and currettage - Present Medications Home Medications: Ambulatory Orders Medication Instructions Recorded Confirmed Ondansetron Odt [Zofran] 4 mg TL Q6H PRN #20 tablet 07/18/17 Promethazine Supp [Phenergan Supp] 25 mg [place] DAILY #14 supp 07/18/17 - Allergies Allergies/Adverse Reactions: Allergies Allergy/AdvReac Type Severity Reaction Status Date / Time hydrocodone bitartrate * AdvReac Mild Nausea Verified 07/18/17 04:21 [From Lortab] - Social History Does the pt smoke?: No Smoking Status: Never smoker Does the pt drink ETOH?: Yes Does the pt have substance abuse?: No - Immunizations Immunizations are current?: Yes - POLST Patient has POLST: No PD ED PE NORMAL - Vitals Vital signs reviewed: Yes - General General: 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, No acute distress - HEENT HEENT: Atraumatic - Neck Neck: Supple, no meningeal sign - Respiratory Respiratory: No respiratory distress - Derm Derm: Normal color, No rash - Extremities Extremities: No deformity, No edema - Neuro Eye Opening: Spontaneous PD ED PE EXPANDED - Cardiac Cardiac: Tachy - Psych Psych: Withdrawn, Non verbal, Other (flat affect) Results - Vitals Vitals: Vital Signs - 24 hr 07/18/17 07/18/17 04:19 06:13 Temperature 36.4 C L Heart Rate 123 H 98 Respiratory 20 20 Rate Blood Pressure 102/75 112/69 O2 Saturation 96 96 Oxygen O2 Source Room air - Labs Labs: Laboratory Tests 07/18/17 04:25 Urine Color YELLOW Urine Clarity HAZY Urine pH 5.5 Ur Specific [place] 1.020 Urine Protein 100 H Urine Glucose (UA) NEGATIVE Urine Ketones 15 H Urine Occult Blood LARGE H Urine Nitrite NEGATIVE Urine Bilirubin NEGATIVE Urine Urobilinogen 0.2 (NORMAL) Ur Leukocyte Esterase NEGATIVE Urine RBC TNTC H Urine WBC 0-3 Ur Squamous Epith Cells MOD Squamous H Urine Bacteria Few Ur Microscopic Review INDICATED Urine Culture Comments NOT INDICATED Urine HCG, Qual NEGATIVE PD MEDICAL DECISION MAKING - ED course Complexity details: reviewed old records, reviewed results, re-evaluated patient , considered differential, d/w patient, d/w family ED course: Patient was seen and examined at bedside. urine was collected and patient was not . previous notes were reviewed. An attempt at an IV was unsuccessful and patient was uncooperative with a very odd affect. Patient was treated with zofran ODT and phenagran rectal suppository. Patient's symptoms improved moderately. Patient's states that she drinks excessively every day. Patient did drink yesterday. Patient had an episode of spitting up after eating ice chips. patient was teated with additional zofran and reglan. After treatment patient asked if she could go home. Patient's tachycardia resolved. Departure - Departure Disposition: 01 Home, Self Care Clinical Impression: Alcoholic gastritis Condition: Good Instructions: ED Gastritis Prescriptions: Ondansetron Odt [Zofran] 4 mg TL Q6H PRN #20 tablet PRN Reason: Nausea / Vomiting Promethazine Supp [Phenergan Supp] 25 mg [place] DAILY #14 supp Comments: Your symptoms today are secondary to alcohol abuse. I know it is difficult but the only way to help your issues is to quit drinking. You have been prescribed a few different anti nausea medications. You should follow up with your doctor if your symptoms persist.
[2017-07-18] MEDS ORDERED: PROMETHAZINE 12.5 MG SUPP PR STA (05:40)
[2017-07-18] MEDS ORDERED: METOCLOPRAMIDE 10 MG/2 ML VIAL IM STA (05:48)
[2017-07-18 06:14] VITALS: BP 112/69
== END 2017-07-18 06:26 | disposition home or self-care (01) ==
LOC: ED 04:10
DX: K29.20 Alcoholic gastritis without bleeding (principal); F10.10 Alcohol abuse, uncomplicated
CPT/HCPCS: 81001; 81025; 96372; 99283; J2765; J8498; Q0162; 81003; 87086

== ENCOUNTER 2017-09-01 19:13 | Emergency (ER) | payer OTHER ==
[2017-09-01] MEDS ORDERED: HYDROmorphone 1 MG/ML CARPUJECT IVP STA (19:38)
[2017-09-01] MEDS ORDERED: SODIUM CHLORIDE 0.9% 1,000 ML IV ONE ×2 (19:38→21:22)
[2017-09-01] MEDS ORDERED: ONDANSETRON 4 MG/2 ML VIAL IVP STA ×2 (19:38→21:22)
--- NOTE | 2017-09-01 19:41 | ED Physician Documentation ---
PD HPI ABD PAIN - Stated complaint Stated Complaint: ABD PX - Chief complaint Chief Complaint: Abd Pain - History obtained from History obtained from: Patient, Family - History of Present Illness Timing - onset: How many days ago (3) Timing - duration: Days (3) Timing - details: Gradual onset Pain level max: 10 Pain level now: 10 Quality: Aching, Pain Location: RLQ Radiation: Other (States her entire abdomen now hurts) Improved by: Laying still Worsened by: Moving, Palpation Associated symptoms: Nausea, Vaginal bleeding (States currently on her menses). No: Fever, Vomiting, Hematemesis, Diarrhea, Constipation, Melena, Hematochezia , Dysuria Similar symptoms before: Has not had sx before Recently seen: Not recently seen Review of Systems Ten Systems: 10 systems reviewed and negative Constitutional: denies: Fever, Chills Ears: denies: Ear pain Nose: denies: Rhinorrhea / runny nose, Congestion Cardiac: denies: Palpitations Respiratory: denies: Dyspnea, Cough GI: reports: Abdominal Pain, Nausea. 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: Ovarian cysts, Miscarriage(s) Psych: Depression, Other - Past Surgical History Past Surgical History: Yes /OFFICE HELPER CLERICAL: Dilation and currettage - Present Medications Home Medications: Ambulatory Orders Medication Instructions Recorded Confirmed Ondansetron Odt [Zofran] 4 mg TL Q6H PRN #20 tablet 07/18/17 Promethazine Supp [Phenergan Supp] 25 mg [place] DAILY #14 supp 07/18/17 Ondansetron Odt [Zofran] 4 mg TL Q6H PRN #10 tablet 09/01/17 Pantoprazole [Protonix] 40 mg PO DAILY #30 tablet 09/01/17 Promethazine [Phenergan] 25 mg PO Q6H PRN #10 tab 09/01/17 Tramadol HCl 50 mg PO Q6H PRN #10 tablet 09/01/17 - Allergies Allergies/Adverse Reactions: Allergies Allergy/AdvReac Type Severity Reaction Status Date / Time hydrocodone bitartrate * AdvReac Mild Nausea Verified 07/18/17 04:21 [From Lortab] - Social History Does the pt smoke?: No Smoking Status: Never smoker Does the pt drink ETOH?: Yes Does the pt have substance abuse?: No - Immunizations Immunizations are current?: Yes - POLST Patient has POLST: No PD ED PE NORMAL - Vitals Vital signs reviewed: Yes - General General: 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, Well developed/nourished, Other (intoxicated, flat affect) - HEENT HEENT: PERRL, Ears normal, Moist mucous membranes, Pharynx benign - Neck Neck: Supple, no meningeal sign - Cardiac Cardiac: RRR, Strong equal pulses - Respiratory Respiratory: No respiratory distress, Clear bilaterally - Abdomen Abdomen: Other (Diffuse abdominal tenderness. Voluntary guarding.) - Derm Derm: Warm and dry, No rash - Extremities Extremities: No edema, No calf tenderness / cord - Neuro Neuro: 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 - Psych Psych: Other (flat) Results - Vitals Vitals: Vital Signs - 24 hr 09/01/17 09/01/17 09/01/17 19:16 19:53 21:00 Temperature 36.3 C L Heart Rate 80 88 88 Respiratory 18 18 16 Rate Blood Pressure 116/74 123/76 128/78 O2 Saturation 98 96 95 09/01/17 22:48 Temperature Heart Rate 70 Respiratory 16 Rate Blood Pressure 97/58 L O2 Saturation 95 Oxygen O2 Source Room air - Labs Labs: Laboratory Tests 09/01/17 09/01/17 09/01/17 19:28 19:28 19:28 WBC 3.0 L RBC 4.11 L Hgb 11.6 L Hct 35.4 L MCV 86.0 MCH 28.1 MCHC 32.6 RDW 17.3 H Plt Count 212 MPV 7.0 L Neut # 1.6 Lymph # 1.0 L [place] # 0.2 Eos # 0.0 Baso # 0.1 Absolute Nucleated RBC 0.00 Nucleated RBC % 0.1 Sodium 141 Potassium 3.5 Chloride 103 Carbon Dioxide 29 Anion Gap 9.0 BUN 5 L Creatinine 0.7 Estimated GFR (MDRD) 100 Glucose 105 H Calcium 8.1 L Total Bilirubin 0.3 AST 34 ALT 11 Alkaline Phosphatase 56 Total Protein 7.0 Albumin 4.0 Globulin 3.0 Albumin/Globulin Ratio 1.3 Lipase 35 Serum HCG, Qual Urine Color Urine Clarity Urine pH Ur Specific [place] Urine Protein Urine Glucose (UA) Urine Ketones Urine Occult Blood Urine Nitrite Urine Bilirubin Urine Urobilinogen Ur Leukocyte Esterase Urine RBC Urine WBC Ur Squamous Epith Cells Urine Bacteria Ur Microscopic Review Urine Culture Comments Urine Opiates Screen Ur Oxycodone Screen Urine Methadone Screen Ur Propoxyphene Screen Ur Barbiturates Screen Ur Tricyclics Screen Ur Phencyclidine Scrn Ur Amphetamine Screen U Methamphetamines Scrn U Benzodiazepines Scrn Urine Cocaine Screen U Cannabinoids Screen Ethyl Alcohol 422.1 09/01/17 09/01/17 19:28 20:52 WBC RBC Hgb Hct MCV MCH MCHC RDW Plt Count MPV Neut # Lymph # [place] # Eos # Baso # Absolute Nucleated RBC Nucleated RBC % Sodium Potassium Chloride Carbon Dioxide Anion Gap BUN Creatinine Estimated GFR (MDRD) Glucose Calcium Total Bilirubin AST ALT Alkaline Phosphatase Total Protein Albumin Globulin Albumin/Globulin Ratio Lipase Serum HCG, Qual NEGATIVE Urine Color YELLOW Urine Clarity CLEAR Urine pH 6.0 Ur Specific [place] 1.020 Urine Protein NEGATIVE Urine Glucose (UA) NEGATIVE Urine Ketones NEGATIVE Urine Occult Blood LARGE H Urine Nitrite NEGATIVE Urine Bilirubin NEGATIVE Urine Urobilinogen 0.2 (NORMAL) Ur Leukocyte Esterase NEGATIVE Urine RBC 0-5 Urine WBC 0-3 Ur Squamous Epith Cells MANY Squamous H Urine Bacteria Many H Ur Microscopic Review INDICATED Urine Culture Comments NOT INDICATED Urine Opiates Screen POSITIVE H Ur Oxycodone Screen NEGATIVE Urine Methadone Screen NEGATIVE Ur Propoxyphene Screen NEGATIVE Ur Barbiturates Screen NEGATIVE Ur Tricyclics Screen NEGATIVE Ur Phencyclidine Scrn NEGATIVE Ur Amphetamine Screen NEGATIVE U Methamphetamines Scrn NEGATIVE U Benzodiazepines Scrn NEGATIVE Urine Cocaine Screen NEGATIVE U Cannabinoids Screen NEGATIVE Ethyl Alcohol - Rads (name of study) CT abd/pelvis Radiology: Prelim report reviewed, EMP read contemporaneously, See rad report ( Right ovarian cyst. Fatty liver) pelvic US Radiology: Prelim report reviewed, EMP read contemporaneously, See rad report ( Large right ovarian simple cyst, 6.7 x 5.6 x 5.7 cm. No sign of torsion or other abnormality) PD MEDICAL DECISION MAKING - ED course Complexity details: reviewed results, re-evaluated patient, considered differential, d/w patient, d/w family ED course: Patient is a 26-year-old female who presents to the emergency department with abdominal pain, found to have a large right ovarian simple cyst. No evidence of torsion. Discussed the case with gynecology on-call, Dr. Saldaña who recommends follow-up in the office. Patient declines a pelvic examination here. She also declines a transvaginal ultrasound. No evidence of appendicitis or peritonitis. She is intoxicated and we discussed her alcohol use with the patient and her . She had gone to rehab in June 2016, And was sober for approximately 6 months, however she had a miscarriage in December of this last year and started drinking again. She feels like the miscarriage was her fault and has been very depressed about this. She has not seen a counselor, I recommended that she do see a mental health functional for this. Also recommend that she get help with her drinking. Information was given to the patient and her . Will prescribe a small amount of pain medication and nausea medication for home. Will also start on Protonix given that she likely has alcoholic gastritis. Patient and family counseled regarding signs and symptoms for which I believe and urgent re-evaluation would be necessary. Patient with good understanding of and agreement to plan and is comfortable going home at this time This document was made in part using voice recognition software. While efforts are made to proofread this document, sound alike and grammatical errors may occur. Departure - Departure Disposition: Home, Self Care Clinical Impression: Alcohol abuse Ovarian cyst Qualifiers: Laterality: right Qualified Code(s): N83.201 - Unspecified ovarian cyst, right side Condition: Good Instructions: ED Alcohol Intoxication, ED Cyst Ovarian Follow-Up: Khurram Thomas ARNP [Primary Care Provider] - Within 1 week Prescriptions: Ondansetron Odt [Zofran] 4 mg TL Q6H PRN #10 tablet PRN Reason: Nausea / Vomiting Pantoprazole [Protonix] 40 mg PO DAILY #30 tablet Promethazine [Phenergan] 25 mg PO Q6H PRN #10 tab PRN Reason: Nausea / Vomiting Tramadol HCl 50 mg PO Q6H PRN #10 tablet PRN Reason: Abdominal Pain Comments: you should have a repeat ultrasound in 4 weeks with your doctor. Return immediately for worsening pain. You should also seen counseling and treatment for your depression and alcoholism. A pamphlet is attached to these instructions. Do not drink alcohol or drive while on narcotic pain medicine. Note that many narcotic pain relievers also contain tylenol/acetaminophen. Please ensure that your total dose of acetaminophen from all sources does not exceed 3 grams (3000mg) per day. You may constipated on this medication, take a stool softener such as "Colace" twice a day while you are on it. Also recommend a [id number] laxative such as senna or MiraLAX any day that you do not have a bowel movement. If you received narcotic pain medication in the emergency department, do not drive or operate machinery for the next 24 hours. Discharge Date/Time: 09/01/17 22:49
[2017-09-01 19:43] LABS: BASOPHILS # (AUTO) 0.1 10^3/uL (0.0-0.1); BASOPHILS % (AUTO) 2.2 %; EOSINOPHILS % (AUTO) 1.2 %; HGB - HEMOGLOBIN 11.6 g/dL (12.0-16.0); LYMPHOCYTES % (AUTO) 34.3 %; MEAN CORPUSCULAR HEMOGLOBIN 28.1 pg (27.0-31.0); MEAN CORPUSCULAR HGB CONC 32.6 g/dL (32.0-36.0); MONOCYTES # (AUTO) 0.2 10^3/uL (0.0-1.0); MONOCYTES % (AUTO) 8.1 %; NEUTROPHILS # (AUTO) 1.6 10^3/uL (1.5-6.6); NEUTROPHILS % (AUTO) 54.2 %; PLT - PLATELET COUNT 212 10^3/uL (130-450); RED BLOOD COUNT 4.11 10^6/uL (4.20-5.40); RED CELL DISTRIBUTION WIDTH 17.3 % (12.0-15.0)
[2017-09-01 19:55] LABS: ALBUMIN/GLOBULIN RATIO 1.3 (1.0-2.2); BILIRUBIN,TOTAL 0.3 mg/dL (0.2-1.0); CALCIUM 8.1 mg/dL (8.5-10.3); CREATININE 0.7 mg/dL (0.4-1.0)
[2017-09-01] MEDS ORDERED: IOPAMIDOL-300 100 ML VIAL ONE (20:19)
[2017-09-01 20:48] LABS: HCG,QUALITATIVE BLOOD NEGATIVE
[2017-09-01 21:02] LABS: MUDS CUTOFF CONCENTRATIONS CUTOFF CONC BELOW:
[2017-09-01] MEDS ORDERED: IOPAMIDOL-300 100 ML VIAL IVP ONE (21:04)
[2017-09-01 21:05] LABS: BILIRUBIN,URINE NEGATIVE (NEGATIVE); GLUCOSE, URINE (UA) NEGATIVE (NEGATIVE); KETONES,URINE (UA) NEGATIVE (NEGATIVE); LEUKOCYTE ESTERASE, URINE NEGATIVE (NEGATIVE); NITRITE,URINE NEGATIVE (NEGATIVE); OCCULT BLOOD,URINE LARGE (NEGATIVE); PROTEIN,URINE NEGATIVE (NEGATIVE); UROBILINOGEN,URINE 0.2 (NORMAL) E.U./dL (NORMAL)
[2017-09-01 21:06] LABS: CLARITY,URINE CLEAR (CLEAR)
[2017-09-01 21:15] LABS: BACTERIA,URINE Many /HPF (None Seen); RBC,URINE 0-5 /HPF (0-5); SQUAMOUS EPITHELIAL CELL,UR MANY Squamous (<= Few)
[2017-09-01 21:16] LABS: AMPHETAMINE SCREEN,URINE NEGATIVE (NEGATIVE); BENZODIAZEPINES SCREEN, URINE NEGATIVE (NEGATIVE); COCAINE SCREEN URINE NEGATIVE (NEGATIVE); METHADONE SCREEN, URINE NEGATIVE (NEGATIVE); METHAMPHETAMINES SCREEN, URINE NEGATIVE (NEGATIVE); OPIATE SCREEN, URINE POSITIVE (NEGATIVE); OXYCODONE SCREEN, URINE NEGATIVE (NEGATIVE); PROPOXYPHENE SCREEN, URINE NEGATIVE (NEGATIVE); TRICYCLIC ANTIDEPRESSANT,URINE NEGATIVE (NEGATIVE)
--- NOTE | 2017-09-01 22:04 | CT Report ---
EXAM: CT ABDOMEN AND PELVIS EXAM DATE: 09/01/2017 09:17 PM. CLINICAL HISTORY: Abdomen pain, initially right lower quadrant, no diffuse. COMPARISONS: 02/24/2017. TECHNIQUE: Routine helical CT imaging was performed through the abdomen and pelvis. IV contrast: 100 ML ISOVUE 300. Enteric contrast: No. Reconstructions: Coronal and sagittal. In accordance with CT protocol optimization, one or more of the following dose reduction techniques w ere utilized for this exam: automated exposure control, adjustment of mA and/or KV based on patient s ize, or use of iterative reconstructive technique. FINDINGS: Lung Bases: Unremarkable. Liver: Diffuse low-density. Gallbladder/Bile Ducts: Unremarkable. Spleen: Normal. Pancreas: Normal. Adrenal Glands: Normal. Kidneys: Normal. No masses or hydronephrosis. Peritoneal Cavity/Bowel: Normal. No free fluid, free air or adenopathy. No masses or acute inflammato ry process. The appendix is well visualized and normal. Pelvic Organs: Right ovarian 6.2 x 6.2 x 5.9 cm cyst. Otherwise the reproductive organs and bladder a re unremarkable. Vasculature: No aneurysms or other significant abnormality. Bones: No significant abnormality. Other: None. IMPRESSION: 1. Right ovarian cyst. 2. Fatty liver. [facility] Referring Provider Line: [phone] SITE ID: [id number]
[2017-09-01] MEDS ORDERED: PANTOPRAZOLE 40 MG VIAL IVP STA (22:15)
[2017-09-01] MEDS ORDERED: KETOROLAC 60 MG/2 ML VIAL IVP STA (22:16)
[2017-09-01] MEDS ORDERED: PROMETHAZINE INJ 25 MG in SODIUM CHLORIDE 0.9% 50 ML IV STA (22:16)
--- NOTE | 2017-09-01 22:36 | Ultrasound Preliminary Report ---
Exam: US PELVIC W/TRANSVAG+DOPPLER COMP IMPRESSION: Large right ovarian simple cyst, 6.7 x 5.6 x 5.7 cm. No sign of torsion or other abnorma lity. [facility] SITE ID: [id number]
--- NOTE | 2017-09-01 22:36 | Ultrasound Report ---
EXAM: PELVIC ULTRASOUND EXAM DATE: 09/01/2017 10:17 PM. CLINICAL HISTORY: Right pelvic pain. Large cyst on CT. Concern for torsion. COMPARISON: CT today. TECHNIQUE: Realtime transabdominal pelvic scan performed to identify the uterus and adnexa and as an overview of other pelvic structures, with static image documentation. FINDINGS: Uterus: 7.4 x 3.5 x 4.5 cm, volume 60.4 cc. Anteverted position. Normal overall size and echotexture. Masses: None. Endometrium: 4 mm. Normal. Cervix: Unremarkable. Right Ovary: 7.5 x 6.2 x 6.1 cm, volume 149.4 cc. Normal echotexture and blood flow. Large simple cys t 6.7 x 5.6 x 5.7 cm. Left Ovary: 2.4 x 1.4 x 2.2 cm, volume 3.7 cc. Normal echotexture and blood flow. Free Fluid: None. Other: None. IMPRESSION: Large right ovarian simple cyst, 6.7 x 5.6 x 5.7 cm. No sign of torsion or other abnorma lity. [facility] Referring Provider Line: [phone] SITE ID: [id number]
[2017-09-01 22:49] VITALS: BP 97/58
== END 2017-09-01 22:49 | disposition home or self-care (01) ==
LOC: ED 19:13
DX: N83.201 Unspecified ovarian cyst, right side (principal); F10.10 Alcohol abuse, uncomplicated
CPT/HCPCS: 74177; 76830; 76856; 80053; 80306; 80320; 81001; 83690; 84703; 85025; 93975; 96374; 96375; 96376; 99283; J1170; J7040; Q9967; 36415; 81003; 87086; 87491; 87591

== ENCOUNTER 2017-09-02 07:41 | Emergency (ER) | payer OTHER ==
[2017-09-02] MEDS ORDERED: SODIUM CHLORIDE 0.9% 1,000 ML IV ONE (08:09)
[2017-09-02] MEDS ORDERED: LORazepam 2 MG/ML VIAL IVP STA (08:10)
[2017-09-02] MEDS ORDERED: PROCHLORPERAZINE 10 MG/2 ML VIAL IVP STA (08:10)
--- NOTE | 2017-09-02 08:11 | ED Physician Documentation ---
PD HPI NVD - Stated complaint Stated Complaint: N/V - Chief complaint Chief Complaint: Abd Pain - History obtained from History obtained from: Patient - History of Present Illness Timing - onset: How many days ago (3) Timing - duration: Days (3) Timing - details: Gradual onset, Still present Associated symptoms: Abdominal pain, Dizzy, Loss of appetite Contributing factors: Alcohol use Improved by: Laying still Similar symptoms before: Diagnosis (gastritis, alcohol abuse, ovarian cyst) Recently seen: Emergency Dept - Additonal information Additional information: 26-year-old female with a history of alcohol abuse has developed acute right lower quadrant abdominal pain and was seen in the emergency department yesterday. She was diagnosed with an ovarian cyst that was large and she was administered antiemetic and fluid. She has not been able to hold down much of anything overnight and she is come back into the emergency department with nausea and vomiting. She also states that she has some shakiness. Review of Systems Constitutional: reports: Chills, Fatigue, Sweats. denies: Fever Eyes: denies: Decreased vision Ears: denies: Ear pain Nose: denies: Rhinorrhea / runny nose, Congestion Throat: denies: Sore throat Cardiac: denies: Chest pain / pressure, Palpitations Respiratory: denies: Dyspnea, Cough GI: reports: Abdominal Pain, Nausea, Vomiting : denies: Dysuria, Frequency Skin: denies: Rash Musculoskeletal: denies: Neck pain, Back pain, Extremity pain Neurologic: reports: Generalized weakness. 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) Psych: Depression, Other - Past Surgical History Past Surgical History: Yes /ELECTROTYPER APPRENTICE: Dilation and currettage - Present Medications Home Medications: Ambulatory Orders Medication Instructions Recorded Confirmed Ondansetron Odt [Zofran] 4 mg TL Q6H PRN #20 tablet 07/18/17 Promethazine Supp [Phenergan Supp] 25 mg [place] DAILY #14 supp 07/18/17 Ondansetron Odt [Zofran] 4 mg TL Q6H PRN #10 tablet 09/01/17 Pantoprazole [Protonix] 40 mg PO DAILY #30 tablet 09/01/17 Promethazine [Phenergan] 25 mg PO Q6H PRN #10 tab 09/01/17 Tramadol HCl 50 mg PO Q6H PRN #10 tablet 09/01/17 Lorazepam [Ativan] 1 - 2 mg PO Q6HR PRN #30 tablet 09/02/17 - Allergies Allergies/Adverse Reactions: Allergies Allergy/AdvReac Type Severity Reaction Status Date / Time hydrocodone bitartrate * AdvReac Mild Nausea Verified 07/18/17 04:21 [From Lortab] - Social History Does the pt smoke?: No Smoking Status: Never smoker Does the pt drink ETOH?: Yes Does the pt have substance abuse?: No - Immunizations Immunizations are current?: Yes - POLST Patient has POLST: No PD ED PE NORMAL - Vitals Vital signs reviewed: Yes (hypertensive ) - General General: Well developed/nourished, Other (26 y/o female is withdrawn and shaking. ) - HEENT HEENT: Atraumatic, PERRL, EOMI - Neck Neck: Supple, no meningeal sign, No bony TTP - Cardiac Cardiac: No murmur, Other (tachy to 110) - Respiratory Respiratory: No respiratory distress, Clear bilaterally - Abdomen Abdomen: Soft, Other (mild epigastrict tenderness) - Back Back: No CVA TTP, No spinal TTP - Derm Derm: Normal color, Warm and dry, No rash - Extremities Extremities: No deformity, No edema - Neuro Neuro: No motor deficit, No sensory deficit Eye Opening: Spontaneous Motor: Obeys Commands Verbal: Oriented GCS Score: 15 - Psych Psych: Other (mood is withdrawn and the affect is flat.) Results - Vitals Vitals: Vital Signs - 24 hr 09/02/17 09/02/17 09/02/17 07:50 09:30 10:00 Temperature 36.9 C Heart Rate 97 75 79 Respiratory 16 16 16 Rate Blood Pressure 125/84 H 110/67 112/76 O2 Saturation 100 100 100 09/02/17 11:59 Temperature 36.8 C Heart Rate 74 Respiratory 16 Rate Blood Pressure 137/74 H O2 Saturation 97 Oxygen O2 Source Room air - Labs Labs: Laboratory Tests 09/02/17 09/02/17 09/02/17 08:40 08:40 10:45 WBC 3.9 L RBC 3.84 L Hgb 11.2 L Hct 32.6 L MCV 84.9 MCH 29.2 MCHC 34.4 RDW 16.8 H Plt Count 185 MPV 7.1 L Neut # 2.8 Lymph # 0.8 L [place] # 0.3 Eos # 0.0 Baso # 0.1 Absolute Nucleated RBC 0.00 Nucleated RBC % 0.0 Sodium 138 Potassium 3.5 Chloride 103 Carbon Dioxide 24 Anion Gap 11.0 BUN 5 L Creatinine 0.6 Estimated GFR (MDRD) 119 Glucose 90 Calcium 8.5 Total Bilirubin 0.5 AST 36 ALT 11 Alkaline Phosphatase 53 Total Protein 6.8 Albumin 4.1 Globulin 2.7 Albumin/Globulin Ratio 1.5 Lipase 33 Urine Color YELLOW Urine Clarity CLEAR Urine pH 6.5 Ur Specific [place] 1.015 Urine Protein NEGATIVE Urine Glucose (UA) NEGATIVE Urine Ketones TRACE Urine Occult Blood SMALL H Urine Nitrite NEGATIVE Urine Bilirubin NEGATIVE Urine Urobilinogen 0.2 (NORMAL) Ur Leukocyte Esterase NEGATIVE Urine RBC 0-5 Urine WBC 0-3 Ur Squamous Epith Cells MOD Squamous H Urine Bacteria Moderate H Urine Mucus Marked Strands Ur Microscopic Review INDICATED Urine Culture Comments NOT INDICATED Urine Opiates Screen NEGATIVE Ur Oxycodone Screen NEGATIVE Urine Methadone Screen NEGATIVE Ur Propoxyphene Screen NEGATIVE Ur Barbiturates Screen NEGATIVE Ur Tricyclics Screen NEGATIVE Ur Phencyclidine Scrn NEGATIVE Ur Amphetamine Screen NEGATIVE U Methamphetamines Scrn NEGATIVE U Benzodiazepines Scrn NEGATIVE Urine Cocaine Screen NEGATIVE U Cannabinoids Screen NEGATIVE Ethyl Alcohol 111.9 Procedures - IVC sono (time) 0800 Bedside IVC sono: IVC measures (cm) (0.9), Dehydration (est 1-2 liter deficit) PD MEDICAL DECISION MAKING - ED course Complexity details: reviewed old records, reviewed results, re-evaluated patient , considered differential, d/w patient ED course: 18-year-old female with history of alcohol abuse was in the ED yesterday with abdominal pain and was diagnosed with an ovarian cyst. She was noted at the time to be intoxicated with a blood alcohol of 420 and today she is shaky and vomiting. She feels pretty bad. She appears to be in early alcohol withdrawal and she is administered a banana bag IV and ativan. The ativan helps quite a bit and she has alcohol resources from prior experience and from the visit yesterday. Departure - Departure Disposition: 01 Home, Self Care Clinical Impression: Alcohol withdrawal Qualifiers: Complication of substance-induced condition: with delirium Qualified Code(s): F10.231 - Alcohol dependence with withdrawal delirium Condition: Stable Instructions: ED Withdrawal Alcohol Follow-Up: Khurram Thomas ARNP [Primary Care Provider] - Prescriptions: Lorazepam [Ativan] 1 - 2 mg PO Q6HR PRN #30 tablet PRN Reason: withdrawal symptoms Discharge Date/Time: 09/02/17 12:00
[2017-09-02] MEDS ORDERED: THIAMINE INJ 100 MG, FOLIC ACID INJ 1 MG in SODIUM CHLORIDE 0.9% 100ML 100 ML IV STA (08:19)
[2017-09-02] MEDS ORDERED: MAGNESIUM SULFATE 2 GRAM 2 GM/50 ML BAG IV STA (08:19)
[2017-09-02] MEDS ORDERED: MULTIVITAMIN 10 ML in SODIUM CHLORIDE 0.9% 1,000 ML IV STA (08:19)
[2017-09-02 08:59] LABS: BASOPHILS # (AUTO) 0.1 10^3/uL (0.0-0.1); BASOPHILS % (AUTO) 1.4 %; HGB - HEMOGLOBIN 11.2 g/dL (12.0-16.0); LYMPHOCYTES # (AUTO) 0.8 10^3/uL (1.5-3.5); LYMPHOCYTES % (AUTO) 19.6 %; MEAN CORPUSCULAR HEMOGLOBIN 29.2 pg (27.0-31.0); MEAN CORPUSCULAR HGB CONC 34.4 g/dL (32.0-36.0); MEAN CORPUSCULAR VOLUME 84.9 fL (81.0-99.0); MEAN PLATELET VOLUME 7.1 fL (7.9-10.8); MONOCYTES # (AUTO) 0.3 10^3/uL (0.0-1.0); MONOCYTES % (AUTO) 7.5 %; NEUTROPHILS # (AUTO) 2.8 10^3/uL (1.5-6.6); NEUTROPHILS % (AUTO) 70.5 %; PLT - PLATELET COUNT 185 10^3/uL (130-450); RED BLOOD COUNT 3.84 10^6/uL (4.20-5.40); RED CELL DISTRIBUTION WIDTH 16.8 % (12.0-15.0); WHITE BLOOD COUNT 3.9 x10^3/uL (4.8-10.8)
[2017-09-02 09:10] LABS: ALBUMIN 4.1 g/dL (3.2-5.5); ALBUMIN/GLOBULIN RATIO 1.5 (1.0-2.2); BILIRUBIN,TOTAL 0.5 mg/dL (0.2-1.0); CALCIUM 8.5 mg/dL (8.5-10.3); CREATININE 0.6 mg/dL (0.4-1.0); TOTAL PROTEIN 6.8 g/dL (6.7-8.2)
[2017-09-02 10:55] LABS: MUDS CUTOFF CONCENTRATIONS CUTOFF CONC BELOW:
[2017-09-02 11:09] LABS: BILIRUBIN,URINE NEGATIVE (NEGATIVE); GLUCOSE, URINE (UA) NEGATIVE (NEGATIVE); KETONES,URINE (UA) TRACE mg/dL (NEGATIVE); LEUKOCYTE ESTERASE, URINE NEGATIVE (NEGATIVE); NITRITE,URINE NEGATIVE (NEGATIVE); OCCULT BLOOD,URINE SMALL (NEGATIVE); PH,URINE 6.5 PH (5.0-7.5); PROTEIN,URINE NEGATIVE (NEGATIVE); UROBILINOGEN,URINE 0.2 (NORMAL) E.U./dL (NORMAL)
[2017-09-02 11:12] LABS: CLARITY,URINE CLEAR (CLEAR)
[2017-09-02 11:20] LABS: BACTERIA,URINE Moderate /HPF (None Seen); RBC,URINE 0-5 /HPF (0-5); SQUAMOUS EPITHELIAL CELL,UR MOD Squamous (<= Few)
[2017-09-02 11:21] LABS: MUCUS,URINE Marked Strands
[2017-09-02 11:22] LABS: AMPHETAMINE SCREEN,URINE NEGATIVE (NEGATIVE); BENZODIAZEPINES SCREEN, URINE NEGATIVE (NEGATIVE); COCAINE SCREEN URINE NEGATIVE (NEGATIVE); METHADONE SCREEN, URINE NEGATIVE (NEGATIVE); METHAMPHETAMINES SCREEN, URINE NEGATIVE (NEGATIVE); OPIATE SCREEN, URINE NEGATIVE (NEGATIVE); OXYCODONE SCREEN, URINE NEGATIVE (NEGATIVE); PROPOXYPHENE SCREEN, URINE NEGATIVE (NEGATIVE); TRICYCLIC ANTIDEPRESSANT,URINE NEGATIVE (NEGATIVE)
[2017-09-02 12:00] VITALS: BP 137/74
== END 2017-09-02 12:00 | disposition home or self-care (01) ==
LOC: ED 07:41
DX: F10.231 Alcohol dependence with withdrawal delirium (principal); N83.201 Unspecified ovarian cyst, right side
CPT/HCPCS: 36415; 80053; 80306; 80320; 81001; 83690; 85025; 96365; 96366; 96367; 96368; 96375; 99283; 99284; J2060; J3411; 81003; 87086

== ENCOUNTER 2017-09-18 06:49 | Emergency (ER) | payer OTHER ==
[2017-09-18] MEDS ORDERED: KETOROLAC 60 MG/2 ML VIAL IVP STA (07:24)
[2017-09-18] MEDS ORDERED: ONDANSETRON 4 MG/2 ML VIAL IVP STA ×2 (07:24→12:11)
[2017-09-18] MEDS ORDERED: SODIUM CHLORIDE 0.9% 1,000 ML IV ONE (07:24)
[2017-09-18] MEDS ORDERED: LORazepam 2 MG/ML VIAL IVP STA ×2 (07:25→12:21)
[2017-09-18 07:28] LABS: BASOPHILS # (AUTO) 0.1 10^3/uL (0.0-0.1); BASOPHILS % (AUTO) 0.8 %; EOSINOPHILS # (AUTO) 0.1 10^3/uL (0.0-0.7); EOSINOPHILS % (AUTO) 1.1 %; HGB - HEMOGLOBIN 13.3 g/dL (12.0-16.0); LYMPHOCYTES # (AUTO) 1.5 10^3/uL (1.5-3.5); LYMPHOCYTES % (AUTO) 23.7 %; MEAN CORPUSCULAR HEMOGLOBIN 28.2 pg (27.0-31.0); MEAN CORPUSCULAR HGB CONC 33.3 g/dL (32.0-36.0); MEAN CORPUSCULAR VOLUME 84.6 fL (81.0-99.0); MEAN PLATELET VOLUME 7.1 fL (7.9-10.8); MONOCYTES # (AUTO) 0.3 10^3/uL (0.0-1.0); MONOCYTES % (AUTO) 4.8 %; NEUTROPHILS # (AUTO) 4.4 10^3/uL (1.5-6.6); NEUTROPHILS % (AUTO) 69.6 %; PLT - PLATELET COUNT 484 10^3/uL (130-450); RED BLOOD COUNT 4.72 10^6/uL (4.20-5.40); RED CELL DISTRIBUTION WIDTH 16.5 % (12.0-15.0); WHITE BLOOD COUNT 6.3 x10^3/uL (4.8-10.8)
--- NOTE | 2017-09-18 07:28 | ED Physician Documentation ---
History of Present Illness - Stated complaint Stated Complaint: WITHDRAWL/ETOH - Chief complaint Chief Complaint: Abd Pain - Additonal information Additional information: hx from pt 26 f LMP first week August denies preg pshx D and c to ED 2 CC 1) EtOH withdrawal - last drink yesterday AM - feeling shaky - hx withdrawal - in AA 2) lower abd pain since ast night R > L. vomiting s blood, no diarrhea, no vag bleed or dc, no urinary sx, feels similar to prior cysts Review of Systems Constitutional: denies: Fever Ears: denies: Ear pain Throat: denies: Sore throat Cardiac: denies: Chest pain / pressure Respiratory: denies: Cough GI: reports: Abdominal Pain, Nausea, Vomiting. 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: Dilation and currettage - Present Medications Home Medications: Ambulatory Orders Medication Instructions Recorded Confirmed Ondansetron Odt [Zofran] 4 mg TL Q6H PRN #20 tablet 07/18/17 Promethazine Supp [Phenergan Supp] 25 mg [place] DAILY #14 supp 07/18/17 Ondansetron Odt [Zofran] 4 mg TL Q6H PRN #10 tablet 09/01/17 Pantoprazole [Protonix] 40 mg PO DAILY #30 tablet 09/01/17 Promethazine [Phenergan] 25 mg PO Q6H PRN #10 tab 09/01/17 Tramadol HCl 50 mg PO Q6H PRN #10 tablet 09/01/17 Lorazepam [Ativan] 1 - 2 mg PO Q6HR PRN #30 tablet 09/02/17 Dicyclomine [Bentyl] 10 mg PO Q8H PRN #20 capsule 09/18/17 Doxycycline Hyclate 100 mg PO BID #20 capsule 09/18/17 Ibuprofen [Motrin] 400 mg PO Q6H PRN #20 tablet 09/18/17 - Allergies Allergies/Adverse Reactions: Allergies Allergy/AdvReac Type Severity Reaction Status Date / Time hydrocodone bitartrate * AdvReac Mild Nausea Verified 09/18/17 06:59 [From Lortab] - Social History Does the pt smoke?: No Smoking Status: Never smoker Does the pt drink ETOH?: Yes Does the pt have substance abuse?: No - Immunizations Immunizations are current?: Yes - POLST Patient has POLST: No PD ED PE NORMAL - Vitals Vital signs reviewed: Yes - Neck Neck: Supple, no meningeal sign - Cardiac Cardiac: RRR - Respiratory Respiratory: No respiratory distress, Clear bilaterally - Abdomen Abdomen: Soft, Other (severe diffuse TTP lower > upper vol guarding) - Derm Derm: Normal color - Extremities Extremities: No deformity - Neuro Neuro: 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 - Psych Psych: Other (withdrawn) Results - Vitals Vitals: Vital Signs - 24 hr 09/18/17 09/18/17 06:57 12:05 Temperature 36.0 C L Heart Rate 95 103 H Respiratory 20 20 Rate Blood Pressure 109/74 118/57 L O2 Saturation 100 100 Oxygen O2 Source Room air - Labs Labs: Laboratory Tests 09/18/17 09/18/17 09/18/17 07:16 07:16 07:16 WBC 6.3 RBC 4.72 Hgb 13.3 Hct 39.9 MCV 84.6 MCH 28.2 MCHC 33.3 RDW 16.5 H Plt Count 484 H MPV 7.1 L Neut # 4.4 Lymph # 1.5 [place] # 0.3 Eos # 0.1 Baso # 0.1 Absolute Nucleated RBC 0.00 Nucleated RBC % 0.0 Sodium 139 Potassium 3.6 Chloride 99 L Carbon Dioxide 23 Anion Gap 17.0 H BUN 8 Creatinine 0.8 Estimated GFR (MDRD) 85 L Glucose 109 H Calcium 9.2 Total Bilirubin 0.8 AST 79 H ALT 39 Alkaline Phosphatase 71 Total Protein 8.3 H Albumin 5.0 Globulin 3.3 Albumin/Globulin Ratio 1.5 Lipase 46 Serum HCG, Qual NEGATIVE Urine Color Urine Clarity Urine pH Ur Specific [place] Urine Protein Urine Glucose (UA) Urine Ketones Urine Occult Blood Urine Nitrite Urine Bilirubin Urine Urobilinogen Ur Leukocyte Esterase Urine RBC Urine WBC Ur Squamous Epith Cells Urine Bacteria Urine Mucus Ur Microscopic Review Urine Culture Comments Urine HCG, Qual Ethyl Alcohol 172.8 09/18/17 13:06 WBC RBC Hgb Hct MCV MCH MCHC RDW Plt Count MPV Neut # Lymph # [place] # Eos # Baso # Absolute Nucleated RBC Nucleated RBC % Sodium Potassium Chloride Carbon Dioxide Anion Gap BUN Creatinine Estimated GFR (MDRD) Glucose Calcium Total Bilirubin AST ALT Alkaline Phosphatase Total Protein Albumin Globulin Albumin/Globulin Ratio Lipase Serum HCG, Qual Urine Color YELLOW Urine Clarity HAZY Urine pH 7.5 Ur Specific [place] 1.010 Urine Protein TRACE Urine Glucose (UA) NEGATIVE Urine Ketones 40 H Urine Occult Blood NEGATIVE Urine Nitrite NEGATIVE Urine Bilirubin NEGATIVE Urine Urobilinogen 0.2 (NORMAL) Ur Leukocyte Esterase NEGATIVE Urine RBC 0-5 Urine WBC 0-3 Ur Squamous Epith Cells MANY Squamous H Urine Bacteria Many H Urine Mucus Marked Strands Ur Microscopic Review INDICATED Urine Culture Comments NOT INDICATED Urine HCG, Qual NEGATIVE Ethyl Alcohol - Rads (name of study) pelvic sono with doppler Radiology: See rad report (normal - prior ovarian cyst resolved) rlq abd sono Radiology: See rad report (trace FF, appendix non vis) CT AP Radiology: See rad report (nl appendix, steatosis of the liver) PD MEDICAL DECISION MAKING - ED course ED course: continued pain and nausea tried to avoid CT go abd and pelvic sono nl pelvic sono appendix non vis on abd sono pt still in pain rpt abd exam = focal TTP RLQ will need CT to eval appendix waiting on HCG still hcg neg got CT - neg for appy will dc pt stated she felt much better at time of dc Departure - Departure Disposition: 01 Home, Self Care Clinical Impression: Abdominal pain in female patient, Alcohol abuse Alcohol withdrawal Qualifiers: Complication of substance-induced condition: uncomplicated Qualified Code(s): F10.230 - Alcohol dependence with withdrawal, uncomplicated Condition: Good Instructions: ED Abdominal Pain Unkn Cause Follow-Up: Khurram Thomas ARNP [Primary Care Provider] - Prescriptions: Dicyclomine [Bentyl] 10 mg PO Q8H PRN #20 capsule PRN Reason: abdmonial pain Doxycycline Hyclate 100 mg PO BID #20 capsule Ibuprofen [Motrin] 400 mg PO Q6H PRN #20 tablet PRN Reason: Pain Comments: The test is negative. The ultrasound does not show an ovarian cyst or torsion The CT scan shows a normal appendix The urine sample shows some bacteria so i have started you on antibiotics - some cultures are being run on the urine and the ER staff will call you for any pertinent results. The CT scan also showed fatty infiltration of your liver likely due to your alcohol use - you need to stop drinking or you may progress to cirrhosis - please contact your AA sponsor Given the reassuring ER work up it is Ok for you to go home today on your antibiotics Recommend close follow up with your PMD for a recheck if not better within 2 days Forms: Activity restrictions Discharge Date/Time: 09/18/17 16:12
[2017-09-18 07:42] LABS: ALBUMIN/GLOBULIN RATIO 1.5 (1.0-2.2); BILIRUBIN,TOTAL 0.8 mg/dL (0.2-1.0); CALCIUM 9.2 mg/dL (8.5-10.3); CREATININE 0.8 mg/dL (0.4-1.0); TOTAL PROTEIN 8.3 g/dL (6.7-8.2)
--- NOTE | 2017-09-18 10:42 | Ultrasound Report ---
PELVIC ULTRASOUND WITH DOPPLER: 09/18/2017 CLINICAL INDICATION: Pelvic pain, history of cysts. TECHNIQUE: As requested, only transabdominal pelvic ultrasound was performed, with Doppler. FINDINGS: The uterus is anteverted, measuring 7.7 x 3.6 x 3.4 cm. The endometrium measures 5 mm. The right ovary measures 4.0 x 2.1 x 1.7 cm, and demonstrates a 2.5 cm follicle. Normal flow is seen. The left ovary measures 3.5 x 3.3 x 2.1 cm, and demonstrates follicles. Normal flow is seen. The previously seen 6.7 cm right ovarian cyst has resolved. No free fluid is present. IMPRESSION: NORMAL TRANSABDOMINAL PELVIC ULTRASOUND. RESOLUTION OF PREVIOUSLY SEEN 6.7 CM RIGHT OVARIAN CYST. TD: 09/18/2017 10:41
--- NOTE | 2017-09-18 10:43 | Ultrasound Report ---
RIGHT LOWER QUADRANT ULTRASOUND: 09/18/2017 TECHNIQUE: Real-time scanning was performed with administrative representative static images obtained. CLINICAL INDICATION: Pain. COMPARISON: CT 09/01/2017. FINDINGS: Ultrasound of the right lower quadrant demonstrates a trace amount of free fluid. The appendix is not visualized. No abnormal pericecal fluid collection is identified. IMPRESSION: TRACE AMOUNT OF FREE FLUID IN THE RIGHT LOWER QUADRANT. NONVISUALIZATION OF THE APPENDIX. TD: 09/18/2017 10:42
[2017-09-18 12:06] VITALS: BP 118/57
[2017-09-18] MEDS ORDERED: ACETAMINOPHEN 1,000 MG/100 ML 100 ML IV STA (12:13)
[2017-09-18 12:45] LABS: HCG,QUALITATIVE BLOOD NEGATIVE
[2017-09-18 13:19] LABS: BILIRUBIN,URINE NEGATIVE (NEGATIVE); GLUCOSE, URINE (UA) NEGATIVE (NEGATIVE); KETONES,URINE (UA) 40 mg/dL (NEGATIVE); LEUKOCYTE ESTERASE, URINE NEGATIVE (NEGATIVE); NITRITE,URINE NEGATIVE (NEGATIVE); OCCULT BLOOD,URINE NEGATIVE (NEGATIVE); PH,URINE 7.5 PH (5.0-7.5); PROTEIN,URINE TRACE mg/dL (NEGATIVE); UROBILINOGEN,URINE 0.2 (NORMAL) E.U./dL (NORMAL)
[2017-09-18 13:22] LABS: CLARITY,URINE HAZY (CLEAR); HCG UR QUAL NEGATIVE
[2017-09-18] MEDS ORDERED: IOPAMIDOL-300 100 ML VIAL ONE ×2 (13:32→14:31)
[2017-09-18 13:38] LABS: BACTERIA,URINE Many /HPF (None Seen); MUCUS,URINE Marked Strands; RBC,URINE 0-5 /HPF (0-5); SQUAMOUS EPITHELIAL CELL,UR MANY Squamous (<= Few)
--- NOTE | 2017-09-18 14:53 | CT Report ---
EXAM: CT ABDOMEN AND PELVIS EXAM DATE: 09/18/2017 02:10 PM. CLINICAL HISTORY: Rlq pain, sono non diagnostic. COMPARISONS: 09/01/2017. TECHNIQUE: Routine helical CT imaging was performed through the abdomen and pelvis. IV contrast: 100M L ISOVUE 300. Enteric contrast: No. Reconstructions: Coronal and sagittal. In accordance with CT protocol optimization, one or more of the following dose reduction techniques w ere utilized for this exam: automated exposure control, adjustment of mA and/or KV based on patient s ize, or use of iterative reconstructive technique. FINDINGS: Lung Bases: Unremarkable. Liver: Liver parenchyma is low in density. No focal liver lesion or intrahepatic biliary dilatation. Gallbladder/Bile Ducts: Unremarkable. Spleen: Normal. Pancreas: Normal. Adrenal Glands: Normal. Kidneys: Normal. No masses or hydronephrosis. Peritoneal Cavity/Bowel: Normal. No free fluid, free air or adenopathy. No masses or acute inflammato ry process. The retrocecal appendix appears normal. Pelvic Organs: Urinary bladder is empty. The uterus is anteverted. The ovaries appear normal in size for age. Vasculature: No aneurysms or other significant abnormality. Bones: No significant abnormality. Other: None. IMPRESSION: 1. Normal appendix. 2. No CT abnormality to explain pain. 3. Steatosis of the liver. [facility] Referring Provider Line: [phone] SITE ID: [id number]
--- NOTE | 2017-09-18 14:53 | CT Preliminary Report ---
Exam: CT ABDOMEN/PELVIS W/ IMPRESSION: 1. Normal appendix. 2. No CT abnormality to explain pain. 3. Steatosis of the liver. [facility] SITE ID: [id number]
[2017-09-18] MEDS ORDERED: IOPAMIDOL-300 100 ML VIAL IVP ONE (16:05)
== END 2017-09-18 16:12 | disposition home or self-care (01) ==
LOC: ED 06:49
DX: F10.230 Alcohol dependence with withdrawal, uncomplicated (principal); R10.30 Lower abdominal pain, unspecified; R82.71 Bacteriuria
CPT/HCPCS: 36415; 74177; 76705; 76856; 80053; 80320; 81001; 81025; 83690; 84703; 85025; 87491; 87591; 93976; 96365; 96375; 96376; 99283; J0131; J2060; Q9967; 81003; 87086

== ENCOUNTER 2017-12-23 03:04 | Emergency (ER) | payer OTHER ==
[2017-12-23] MEDS ORDERED: FAMOTIDINE 20 MG in SODIUM CHLORIDE 0.9% 50 ML IV ONE (03:16)
[2017-12-23] MEDS ORDERED: METOCLOPRAMIDE 10 MG/2 ML VIAL IVP STA (03:16)
[2017-12-23 03:35] LABS: BILIRUBIN,URINE NEGATIVE (NEGATIVE); GLUCOSE, URINE (UA) NEGATIVE (NEGATIVE); KETONES,URINE (UA) NEGATIVE (NEGATIVE); LEUKOCYTE ESTERASE, URINE NEGATIVE (NEGATIVE); NITRITE,URINE NEGATIVE (NEGATIVE); OCCULT BLOOD,URINE SMALL (NEGATIVE); PH,URINE 5.5 PH (5.0-7.5); PROTEIN,URINE 30 mg/dL (NEGATIVE); UROBILINOGEN,URINE 0.2 (NORMAL) E.U./dL (NORMAL)
[2017-12-23 03:46] LABS: ALBUMIN 4.3 g/dL (3.2-5.5); ALBUMIN/GLOBULIN RATIO 1.4 (1.0-2.2); ALKALINE PHOSPHATASE 40 IU/L (42-121); ALT ALANINE AMINOTRANSFERASE 16 IU/L (10-60); AST ASPARTATE AMINOTRANSFERASE 39 IU/L (10-42); BILIRUBIN,TOTAL 0.4 mg/dL (0.2-1.0); BUN - BLOOD UREA NITROGEN 6 mg/dL (6-20); CARBON DIOXIDE - CO2 24 mmol/L (21-32); CHLORIDE 105 mmol/L (101-111); CREATININE 0.7 mg/dL (0.4-1.0); GFR - MDRD 99 (>89); GLUCOSE 112 mg/dL (70-100); LIPASE 39 U/L (22-51); MAGNESIUM 1.9 mg/dL (1.7-2.8); SODIUM 140 mmol/L (135-145); TOTAL PROTEIN 7.3 g/dL (6.7-8.2)
[2017-12-23 03:47] LABS: CLARITY,URINE CLEAR (CLEAR)
[2017-12-23 03:48] LABS: BASOPHILS % (AUTO) 0.8 %; EOSINOPHILS % (AUTO) 0.4 %; HGB - HEMOGLOBIN 11.5 g/dL (12.0-16.0); LYMPHOCYTES # (AUTO) 1.6 10^3/uL (1.5-3.5); LYMPHOCYTES % (AUTO) 27.9 %; MEAN CORPUSCULAR HEMOGLOBIN 27.3 pg (27.0-31.0); MEAN CORPUSCULAR HGB CONC 33.8 g/dL (32.0-36.0); MEAN CORPUSCULAR VOLUME 80.9 fL (81.0-99.0); MEAN PLATELET VOLUME 7.8 fL (7.9-10.8); MONOCYTES # (AUTO) 0.3 10^3/uL (0.0-1.0); NEUTROPHILS # (AUTO) 3.7 10^3/uL (1.5-6.6); NEUTROPHILS % (AUTO) 65.9 %; PLT - PLATELET COUNT 257 10^3/uL (130-450); RED CELL DISTRIBUTION WIDTH 16.7 % (12.0-15.0); WHITE BLOOD COUNT 5.6 x10^3/uL (4.8-10.8)
[2017-12-23 03:52] LABS: BACTERIA,URINE Rare /HPF (None Seen); MUCUS,URINE Few Strands; SQUAMOUS EPITHELIAL CELL,UR MOD Squamous (<= Few)
[2017-12-23 04:13] LABS: HCG,QUALITATIVE BLOOD POSITIVE
--- NOTE | 2017-12-23 04:33 | ED Physician Documentation ---
History of Present Illness - Stated complaint Stated Complaint: NAUSEA - Chief complaint Chief Complaint: Abd Pain - History obtained from History obtained from: Patient - Additonal information Additional information: 27-year-old female presents the emergency department with nausea and vomiting. The patient denies any abdominal pain, dysuria, vaginal bleeding or vaginal discharge. The patient has a history of recurrent nausea and vomiting and this is similar to prior episodes. The patient describes the symptoms as moderate. The patient denies blood in the vomit or stools. No other associated symptoms. No triggering factors. No relieving factors Review of Systems Constitutional: reports: Fatigue. denies: Fever, Chills Ears: denies: Ear pain Nose: denies: Congestion Throat: denies: Sore throat Cardiac: denies: Chest pain / pressure Respiratory: denies: Dyspnea GI: reports: Nausea, Vomiting. 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) Psych: Depression, Other Other Past Medical History: Insomnia - Past Surgical History Past Surgical History: Yes /CLINICAL PHARMACY COORDINATOR: Dilation and currettage - Present Medications Home Medications: Ambulatory Orders Medication Instructions Recorded Confirmed Metoclopramide [Reglan] 10 mg PO Q6H PRN #30 tablet 12/23/17 traZODone [Desyrel] 100 mg PO HS 12/23/17 - Allergies Allergies/Adverse Reactions: Allergies Allergy/AdvReac Type Severity Reaction Status Date / Time hydrocodone bitartrate * AdvReac Mild Nausea Verified 12/23/17 03:14 [From Lortab] - Social History Does the pt smoke?: No Smoking Status: Never smoker Does the pt drink ETOH?: Yes Does the pt have substance abuse?: No - Immunizations Immunizations are current?: Yes - POLST Patient has POLST: No PD ED PE NORMAL - General General: 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, No acute distress - HEENT HEENT: Atraumatic, PERRL, EOMI, Moist mucous membranes - Neck Neck: Supple, no meningeal sign - Cardiac Cardiac: RRR, Strong equal pulses - Respiratory Respiratory: No respiratory distress - Abdomen Abdomen: Soft, Non tender, Non distended - Derm Derm: Normal color - Extremities Extremities: No deformity - Neuro Neuro: 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, Normal speech - Psych Psych: Normal affect Results - Vitals Vitals: Vital Signs - 24 hr 12/23/17 03:12 Temperature 36.7 C Heart Rate 71 Respiratory 16 Rate Blood Pressure 118/79 O2 Saturation 100 Oxygen O2 Source Room air - Labs Labs: Laboratory Tests 12/23/17 12/23/17 12/23/17 03:25 03:25 03:25 WBC 5.6 RBC 4.20 Hgb 11.5 L Hct 34.0 L MCV 80.9 L MCH 27.3 MCHC 33.8 RDW 16.7 H Plt Count 257 MPV 7.8 L Neut # (Auto) 3.7 Lymph # (Auto) 1.6 [place] # (Auto) 0.3 Eos # (Auto) 0.0 Baso # (Auto) 0.0 Absolute Nucleated RBC 0.00 Nucleated RBC % 0.0 Sodium 140 Potassium 3.7 Chloride 105 Carbon Dioxide 24 Anion Gap 11.0 BUN 6 Creatinine 0.7 Estimated GFR (MDRD) 99 Glucose 112 H Calcium 9.0 Magnesium 1.9 Total Bilirubin 0.4 AST 39 ALT 16 Alkaline Phosphatase 40 L Total Protein 7.3 Albumin 4.3 Globulin 3.0 Albumin/Globulin Ratio 1.4 Lipase 39 Serum HCG, Qual POSITIVE Urine Color YELLOW Urine Clarity CLEAR Urine pH 5.5 Ur Specific [place] >=1.030 H Urine Protein 30 H Urine Glucose (UA) NEGATIVE Urine Ketones NEGATIVE Urine Occult Blood SMALL H Urine Nitrite NEGATIVE Urine Bilirubin NEGATIVE Urine Urobilinogen 0.2 (NORMAL) Ur Leukocyte Esterase NEGATIVE Urine RBC 6-10 H Urine WBC 4-5 Ur Squamous Epith Cells MOD Squamous H Urine Bacteria Rare Urine Casts 0-2 Hyaline Casts Urine Mucus Few Strands Ur Microscopic Review INDICATED Urine Culture Comments NOT INDICATED PD MEDICAL DECISION MAKING - ED course ED course: On reevaluation the patient resting comfortably, the patient still has no abdominal pain and denies vaginal bleeding, vaginal discharge or dysuria. The patient is incidentally and this may be the source of her nausea and vomiting. Presently on physical exam there is no evidence to suggest a ectopic . The patient appears appropriate for discharge and ongoing outpatient management. I discussed with her warning signs and recommended returning to the emergency department immediately for any worsening or any concerns. - Sepsis Event Vital Signs: Vital Signs - 24 hr 12/23/17 03:12 Temperature 36.7 C Heart Rate 71 Respiratory 16 Rate Blood Pressure 118/79 O2 Saturation 100 Oxygen O2 Source Room air Departure - Departure Disposition: 01 Home, Self Care Clinical Impression: Vomiting Qualifiers: Vomiting type: unspecified Vomiting Intractability: non-intractable Nausea presence: with nausea Qualified Code(s): R11.2 - Nausea with vomiting, unspecified Qualifiers: Weeks of gestation: less than 8 weeks Qualified Code(s): Z3A.01 - Less than 8 weeks gestation of Condition: Good Instructions: Nausea Vomit Control, Preg 1st Trimester, Preg 1st Trimester Coping, Preg Common Questions Follow-Up: Jaya Bell MD [Provider Admit Priv/Credential] - Kendall Mathur MD [Provider Admit Priv/Credential] - (Call to schedule an appointment ) Prescriptions: Metoclopramide [Reglan] 10 mg PO Q6H PRN #30 tablet PRN Reason: Nausea / Vomiting
[2017-12-23 04:44] VITALS: BP 120/74
== END 2017-12-23 04:44 | disposition home or self-care (01) ==
LOC: ED 03:04
DX: O21.9 Vomiting of pregnancy, unspecified (principal); Z3A.01 Less than 8 weeks gestation of pregnancy
CPT/HCPCS: 36415; 80053; 81001; 83690; 83735; 84703; 85025; 96365; 96375; 99283; J2765; J7040; 81003; 87086

== ENCOUNTER 2018-09-15 03:38 | Emergency (ER) | payer OTHER ==
[2018-09-15 04:09] LABS: BILIRUBIN,URINE NEGATIVE (NEGATIVE); CLARITY,URINE CLOUDY (CLEAR); GLUCOSE, URINE (UA) NEGATIVE (NEGATIVE); KETONES,URINE (UA) TRACE mg/dL (NEGATIVE); LEUKOCYTE ESTERASE, URINE NEGATIVE (NEGATIVE); NITRITE,URINE NEGATIVE (NEGATIVE); OCCULT BLOOD,URINE SMALL (NEGATIVE); PROTEIN,URINE TRACE mg/dL (NEGATIVE); UROBILINOGEN,URINE 0.2 (NORMAL) E.U./dL (NORMAL)
[2018-09-15 04:16] LABS: AMORPHOUS SEDIMENT,UR Moderate /LPF; BACTERIA,URINE Rare /HPF (None Seen); SQUAMOUS EPITHELIAL CELL,UR NONE SEEN (<= Few)
[2018-09-15] MEDS ORDERED: MORPHINE 2 MG/ML SYRINGE IVP STA (04:22)
[2018-09-15] MEDS ORDERED: SODIUM CHLORIDE 0.9% 1,000 ML IV ONE (04:22)
--- NOTE | 2018-09-15 04:24 | ED Physician Documentation ---
PD HPI ABD PAIN - Stated complaint Stated Complaint: ABD PX - Chief complaint Chief Complaint: Abd Pain - History obtained from History obtained from: Patient - History of Present Illness Timing - onset: How many hours ago (8) Timing - details: Still present Quality: Cramping Location: Suprapubic Associated symptoms: Nausea, Vaginal bleeding (scant). No: Fever, Vomiting, Diarrhea, Dysuria Similar symptoms before: Has not had sx before Recently seen: Admitted (9 days post ) - Additional information Additional information: The patient is a 27-year-old female who is 9 days , and who presents w ith pelvic cramping pain that started about 8 hours prior to arrival. She continues to bleed about 2 pads per day. She denies fever or dysuria. She reports occasional nausea, without vomiting. Review of Systems Constitutional: denies: Fever Nose: denies: Congestion Throat: denies: Sore throat Cardiac: denies: Chest pain / pressure Respiratory: denies: Dyspnea, Cough GI: reports: Abdominal Pain, Nausea. denies: Vomiting, Diarrhea : reports: Vaginal bleeding. 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: Ovarian cysts, Miscarriage(s) Psych: Depression, Other - Past Surgical History Past Surgical History: Yes /RACK CARRIER: Dilation and currettage - Present Medications Home Medications: Ambulatory Orders Medication Instructions Recorded Confirmed HYDROcod/ACETAM 5/325 [[place] 5/325] 1 - 2 ea PO Q6H PRN #15 tablet 09/15/18 Pnv No.95/Ferrous Fum/Folic AC 1 each PO DAILY 09/15/18 09/15/18 [ Caplet] Promethazine [Phenergan] 25 mg PO Q6H PRN #10 tab 09/15/18 - Allergies Allergies/Adverse Reactions: Allergies Allergy/AdvReac Type Severity Reaction Status Date / Time hydrocodone bitartrate * AdvReac Mild Nausea Verified 09/15/18 03:49 [From Lortab] - Social History Does the pt smoke?: No Smoking Status: Never smoker Does the pt drink ETOH?: Yes Does the pt have substance abuse?: No - Immunizations Immunizations are current?: Yes - POLST Patient has POLST: No PD ED PE NORMAL - Vitals Vital signs reviewed: Yes (normal) - General General: 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, Well developed/nourished - HEENT HEENT: Atraumatic - Cardiac Cardiac: RRR - Respiratory Respiratory: No respiratory distress, Clear bilaterally - Abdomen Abdomen: Soft, Other (Tenderness to palpation across the lower abdomen, without rebound.) - Female 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 There is no tissue within the vaginal vault or cervical os.). No: Vaginal Bleeding, Vaginal Discharge, Dilated cervix, Tissue present Results - Vitals Vitals: Vital Signs - 24 hr 09/15/18 09/15/18 09/15/18 03:46 03:57 06:16 Temperature 36.2 C L Heart Rate 88 82 Respiratory 18 22 14 Rate Blood Pressure 118/69 104/61 O2 Saturation 100 100 Oxygen O2 Source Room air - Labs Labs: Laboratory Tests 09/15/18 09/15/18 03:55 04:05 WBC 9.5 RBC 3.73 L Hgb 10.6 L Hct 31.2 L MCV 83.6 MCH 28.5 MCHC 34.0 RDW 13.7 Plt Count 441 MPV 6.7 L Neut # (Auto) 7.6 H Lymph # (Auto) 1.4 L [place] # (Auto) 0.4 Eos # (Auto) 0.0 Baso # (Auto) 0.1 Absolute Nucleated RBC 0.01 Nucleated RBC % 0.1 Urine Color YELLOW Urine Clarity CLOUDY Urine pH 6.0 Ur Specific [place] 1.020 Urine Protein TRACE Urine Glucose (UA) NEGATIVE Urine Ketones TRACE Urine Occult Blood SMALL H Urine Nitrite NEGATIVE Urine Bilirubin NEGATIVE Urine Urobilinogen 0.2 (NORMAL) Ur Leukocyte Esterase NEGATIVE Urine RBC 6-10 H Urine WBC 0-3 Ur Squamous Epith Cells NONE SEEN Amorphous Sediment Moderate Urine Bacteria Rare Ur Microscopic Review INDICATED Urine Culture Comments NOT INDICATED - Rads (name of study) Pelvic U/S Radiology: Prelim report reviewed, See rad report (Large nearly 500 cc uterus. Endometrial cavity contains small to moderate amount of probable blood products. No vascular masses identified to suggest vascular retained products of conception. Clinical follow-up suggested.) PD MEDICAL DECISION MAKING - ED course Complexity details: reviewed old records, reviewed results, re-evaluated patient, considered differential, d/w patient ED course: The patient's presentation is significant for vaginal bleeding, with pelvic ultrasound revealing apparent blood collection within the uterus. No vascular components to suggest retained products of conception were identified by ultrasound. Her presentation does not suggest endometritis or urinary tract infection. CBC reveals a normal white count 9.5, and low hemoglobin and hematocrit of 10.6 and 31.2. Urinalysis is negative. Treatment in the emergency department included administration of normal saline 1 L IV, Zofran 4 mg IV, and morphine 4 mg IV. Her pain resolved with the above treatment, and she had no vaginal bleeding while in the emergency department. I discussed with her the results of the ultrasound, and a DVD copy was made for her to take with her to follow-up appointment. She is being discharged with prescriptions for Phenergan and for Vicodin, 15 tablets. I discussed with her the importance of follow-up with her focuser, as well as potentially worrisome signs or symptoms that should prompt reevaluation in the emergency department. Departure - Departure Disposition: 01 Home, Self Care Clinical Impression: bleeding Qualifiers: hemorrhage type: unspecified Qualified Code(s): O72.1 - Other immediate hemorrhage Condition: Stable Instructions: ED Bleed Irregular Vaginal Follow-Up: Shyla Hurst MD [Provider Admit Priv/Credential] - Prescriptions: HYDROcod/ACETAM 5/325 [[place] 5/325] 1 - 2 ea PO Q6H PRN #15 tablet PRN Reason: Pain Promethazine [Phenergan] 25 mg PO Q6H PRN #10 tab PRN Reason: Nausea / Vomiting Comments: Drink plenty of fluids. You can use Phenergan as prescribed if needed for nausea. You can use ibuprofen, up to 800 mg 3 times daily. You can use Vicodin as prescribed if needed for pain. Follow-up with your focuser. Call to schedule an appointment. Return to the emergency department if you develop increasing pelvic pain, increasing vaginal bleeding, fever, or otherwise worsening symptoms. Discharge Date/Time: 09/15/18 07:20
[2018-09-15 04:31] LABS: BASOPHILS # (AUTO) 0.1 10^3/uL (0.0-0.1); EOSINOPHILS % (AUTO) 0.4 %; HGB - HEMOGLOBIN 10.6 g/dL (12.0-16.0); LYMPHOCYTES # (AUTO) 1.4 10^3/uL (1.5-3.5); LYMPHOCYTES % (AUTO) 14.3 %; MEAN CORPUSCULAR HEMOGLOBIN 28.5 pg (27.0-31.0); MEAN CORPUSCULAR VOLUME 83.6 fL (81.0-99.0); MEAN PLATELET VOLUME 6.7 fL (7.9-10.8); MONOCYTES # (AUTO) 0.4 10^3/uL (0.0-1.0); MONOCYTES % (AUTO) 4.1 %; NEUTROPHILS # (AUTO) 7.6 10^3/uL (1.5-6.6); NEUTROPHILS % (AUTO) 80.2 %; PLT - PLATELET COUNT 441 10^3/uL (130-450); RED BLOOD COUNT 3.73 10^6/uL (4.20-5.40); RED CELL DISTRIBUTION WIDTH 13.7 % (12.0-15.0); WHITE BLOOD COUNT 9.5 x10^3/uL (4.8-10.8)
[2018-09-15] MEDS ORDERED: ONDANSETRON 4 MG/2 ML VIAL IVP STA ×2 (04:58→06:09)
--- NOTE | 2018-09-15 06:02 | Ultrasound Report ---
Reason: pelvic pain 9 days post Procedure Date: 09/15/2018 Accession Number: [id number] / [id number] Procedure: US - Pelvic Complete CPT Code: FULL RESULT: EXAM: PELVIC ULTRASOUND EXAM DATE: 09/15/2018 05:52 AM. CLINICAL HISTORY: Pelvic pain 9 days . COMPARISON: PEL NON OB W/TV DOP 11/28/2015 10:16 AM. TECHNIQUE: Real-time transabdominal pelvic scan performed to identify the uterus and adnexa and as an overview of other pelvic structures, with static image documentation. FINDINGS: Uterus: 12.9 x 9.6 x 7.6 cm, volume 492.2 cc. Anteverted position. Large, . Masses: None. Endometrium: Small to moderate amount of heterogeneous material within the endometrial canal, likely blood products. No vascular mass is identified to suggest vascular retained products of conception. Cervix: Unremarkable. Right Ovary: 2.8 x 2.6 x 1.5 cm, volume 5.7 cc. Normal echotexture and blood flow. Left Ovary: 2.3 x 1.6 x 2.0 cm, volume 3.8 cc. Normal echotexture and blood flow. Free Fluid: None. Other: None. IMPRESSION: 1. Large nearly 500 cc uterus. 2. Endometrial cavity contains small to moderate amount of probable blood products. No vascular masses identified to suggest vascular retained products of conception. Clinical follow-up suggested. RADIA
[2018-09-15 06:16] VITALS: BP 104/61
== END 2018-09-15 07:20 | disposition home or self-care (01) ==
LOC: ED 03:38
DX: O72.1 Other immediate postpartum hemorrhage (principal)
CPT/HCPCS: 76856; 81001; 85025; 87491; 87591; 96361; 96374; 96375; 96376; 99284; J2270; 81003; 87086

== ENCOUNTER 2018-09-25 19:52 | Emergency (ER) | payer OTHER ==
[2018-09-25 20:16] LABS: BILIRUBIN,URINE NEGATIVE (NEGATIVE); GLUCOSE, URINE (UA) NEGATIVE (NEGATIVE); KETONES,URINE (UA) NEGATIVE (NEGATIVE); LEUKOCYTE ESTERASE, URINE TRACE (NEGATIVE); NITRITE,URINE NEGATIVE (NEGATIVE); OCCULT BLOOD,URINE LARGE (NEGATIVE); PROTEIN,URINE NEGATIVE (NEGATIVE); UROBILINOGEN,URINE 0.2 (NORMAL) E.U./dL (NORMAL)
[2018-09-25 20:19] LABS: HCG UR QUAL NEGATIVE
[2018-09-25 20:21] LABS: CLARITY,URINE HAZY (CLEAR)
[2018-09-25 20:26] LABS: BACTERIA,URINE Rare /HPF (None Seen); MUCUS,URINE Few Strands; RBC,URINE TNTC /HPF (0-5); SQUAMOUS EPITHELIAL CELL,UR RARE Squamous (<= Few)
[2018-09-25 20:28] LABS: BASOPHILS % (AUTO) 0.6 %; EOSINOPHILS # (AUTO) 0.1 10^3/uL (0.0-0.7); EOSINOPHILS % (AUTO) 1.4 %; HGB - HEMOGLOBIN 10.9 g/dL (12.0-16.0); LYMPHOCYTES # (AUTO) 1.9 10^3/uL (1.5-3.5); LYMPHOCYTES % (AUTO) 38.3 %; MEAN CORPUSCULAR HEMOGLOBIN 26.9 pg (27.0-31.0); MEAN CORPUSCULAR HGB CONC 32.5 g/dL (32.0-36.0); MEAN CORPUSCULAR VOLUME 82.9 fL (81.0-99.0); MEAN PLATELET VOLUME 7.3 fL (7.9-10.8); MONOCYTES # (AUTO) 0.3 10^3/uL (0.0-1.0); MONOCYTES % (AUTO) 5.6 %; NEUTROPHILS # (AUTO) 2.7 10^3/uL (1.5-6.6); NEUTROPHILS % (AUTO) 54.1 %; PLT - PLATELET COUNT 354 10^3/uL (130-450); RED BLOOD COUNT 4.04 10^6/uL (4.20-5.40); RED CELL DISTRIBUTION WIDTH 14.2 % (12.0-15.0)
--- NOTE | 2018-09-25 20:36 | ED Physician Documentation ---
PD HPI NVD - Stated complaint Stated Complaint: NAUSEA/VOMITING - Chief complaint Chief Complaint: General - History obtained from History obtained from: Patient - History of Present Illness Timing - onset: Today (She states she had been sober for the duration of her . She is one-month and has been binge drinking for the last 4 days. She states she does have help at home and so someone has been watching her child. She denies any feeling of frustration with her child. She does have a history of alcoholism in the past and has had alcohol withdrawal after binges. She states she last drank 6:00 this morning and is feeling shaky and nauseous for the afternoon into the evening.) Timing - duration: Days (05/14) Timing - details: Gradual onset, Still present Associated symptoms: Abdominal pain (cramping), Loss of appetite. No: Fever, Hematemesis, Melena, Near syncope / syncope Contributing factors: Alcohol use. No: Sick contact, Recent antibiotics Improved by: No: Eating, Vomiting Worsened by: Eating. No: Palpation Similar symptoms before: Diagnosis (alcohol withdrawal with binges in the past) Review of Systems Constitutional: denies: Fever Nose: denies: Rhinorrhea / runny nose, Congestion Throat: denies: Sore throat Cardiac: denies: Chest pain / pressure, Palpitations Respiratory: denies: Dyspnea, Cough GI: reports: Abdominal Pain, Nausea, Vomiting. denies: Constipation, Diarrhea : reports: Vaginal bleeding (Still having some bleeding . She does have a follow-up with her OB next week.). 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) Psych: Depression, Other - Past Surgical History Past Surgical History: Yes /PRINTING MECHANIST: Dilation and currettage - Present Medications Home Medications: Ambulatory Orders Medication Instructions Recorded Confirmed Pnv No.95/Ferrous Fum/Folic AC 1 each PO DAILY 09/15/18 09/25/18 [ Caplet] Promethazine [Phenergan] 25 mg PO Q6H PRN #10 tab 09/15/18 09/25/18 Famotidine 20 mg PO DAILY #30 tablet 09/25/18 LORazepam [Ativan] 1 - 2 mg PO Q8H PRN #25 tablet 09/25/18 Promethazine [Phenergan] 25 mg PO Q6H PRN #20 tab 09/25/18 - Allergies Allergies/Adverse Reactions: Allergies Allergy/AdvReac Type Severity Reaction Status Date / Time hydrocodone bitartrate * AdvReac Mild Nausea Verified 09/25/18 20:30 [From Lortab] - Living Situation Living Situation: reports: With spouse/s.o. Living Arrangement: reports: At home - Social History Does the pt smoke?: No Smoking Status: Never smoker Does the pt drink ETOH?: Yes Does the pt have substance abuse?: No - Immunizations Immunizations are current?: Yes - POLST Patient has POLST: No PD ED PE NORMAL - Vitals Vital signs reviewed: Yes - General General: 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, Well developed/nourished, Other (she is shaky/tremoring in arms.) - HEENT HEENT: PERRL (nonicteric), Moist mucous membranes, Pharynx benign - Neck Neck: Supple, no meningeal sign, No adenopathy - Cardiac Cardiac: RRR, No murmur - Respiratory Respiratory: Clear bilaterally - Abdomen Abdomen: Normal bowel sounds, Soft, Non distended, No organomegaly, Other (Some tenderness in the epigastric area without any percussion or rebound tenderness. She is not tender in the right upper quadrant nor right lower quadrant.) - Female Female : Deferred - Back Back: No CVA TTP - Derm Derm: Normal color, Warm and dry - Extremities Extremities: No deformity, Normal ROM s pain, No calf tenderness / cord, Other (shaky c/w withdrawal) - Neuro Eye Opening: Spontaneous Motor: Obeys Commands Verbal: Oriented GCS Score: 15 Results - Vitals Vitals: Vital Signs - 24 hr 09/25/18 09/25/18 09/25/18 19:55 20:32 21:16 Temperature 36.3 C L Heart Rate 73 85 72 Respiratory 18 12 18 Rate Blood Pressure 113/76 110/76 105/61 O2 Saturation 100 99 99 09/25/18 09/25/18 09/25/18 21:35 22:11 22:45 Temperature 36.3 C L 36.4 C L Heart Rate 72 82 63 Respiratory 18 16 16 Rate Blood Pressure 102/69 104/73 104/73 O2 Saturation 100 96 99 09/25/18 23:41 Temperature 36.5 C Heart Rate 70 Respiratory 16 Rate Blood Pressure 110/68 O2 Saturation 100 Oxygen O2 Source Room air - Labs Labs: Laboratory Tests 09/25/18 09/25/18 09/25/18 20:08 20:08 20:20 WBC 5.0 RBC 4.04 L Hgb 10.9 L Hct 33.5 L MCV 82.9 MCH 26.9 L MCHC 32.5 RDW 14.2 Plt Count 354 MPV 7.3 L Neut # (Auto) 2.7 Lymph # (Auto) 1.9 [place] # (Auto) 0.3 Eos # (Auto) 0.1 Baso # (Auto) 0.0 Absolute Nucleated RBC 0.00 Nucleated RBC % 0.1 Sodium Potassium Chloride Carbon Dioxide Anion Gap BUN Creatinine Estimated GFR (MDRD) Glucose Calcium Total Bilirubin AST ALT Alkaline Phosphatase Total Protein Albumin Globulin Albumin/Globulin Ratio Lipase Urine Color YELLOW Urine Clarity HAZY Urine pH 7.0 Ur Specific [place] 1.010 1.010 Urine Protein NEGATIVE Urine Glucose (UA) NEGATIVE Urine Ketones NEGATIVE Urine Occult Blood LARGE H Urine Nitrite NEGATIVE Urine Bilirubin NEGATIVE Urine Urobilinogen 0.2 (NORMAL) Ur Leukocyte Esterase TRACE H Urine RBC TNTC H Urine WBC 4-5 Ur Squamous Epith Cells RARE Squamous Urine Bacteria Rare Urine Mucus Few Strands Ur Microscopic Review INDICATED Urine Culture Comments INDICATED Urine HCG, Qual NEGATIVE Ethyl Alcohol 09/25/18 09/25/18 20:20 21:36 WBC RBC Hgb Hct MCV MCH MCHC RDW Plt Count MPV Neut # (Auto) Lymph # (Auto) [place] # (Auto) Eos # (Auto) Baso # (Auto) Absolute Nucleated RBC Nucleated RBC % Sodium 141 Potassium 3.4 L Chloride 105 Carbon Dioxide 24 Anion Gap 12.0 BUN < 5 L Creatinine 0.7 Estimated GFR (MDRD) 99 Glucose 97 Calcium 9.0 Total Bilirubin 0.4 AST 158 H ALT 94 H Alkaline Phosphatase 96 Total Protein 6.7 Albumin 3.9 Globulin 2.8 Albumin/Globulin Ratio 1.4 Lipase 43 Urine Color Urine Clarity Urine pH Ur Specific [place] Urine Protein Urine Glucose (UA) Urine Ketones Urine Occult Blood Urine Nitrite Urine Bilirubin Urine Urobilinogen Ur Leukocyte Esterase Urine RBC Urine WBC Ur Squamous Epith Cells Urine Bacteria Urine Mucus Ur Microscopic Review Urine Culture Comments Urine HCG, Qual Ethyl Alcohol 73.3 PD MEDICAL DECISION MAKING - ED course Complexity details: re-evaluated patient (Improvement with doses of antiemetic and Ativan. She does feel more relaxed and able to at home. She states she has done withdrawal with oral medicines at home in the past.), considered differential (Seems consistent with alcohol withdrawal nausea and vomiting with the tremoring. She states she had had a 4-day binging and has been sober for the duration of her prior to that. She states she does have help at home who is watching her child right now. She is a month with still some vaginal bleeding but no fevers. She denies any frustration with her child and would not do any injury or shaking of her child.), d/w patient Departure - Departure Disposition: Home, Self Care Clinical Impression: Dehydration Nausea and vomiting Qualifiers: Vomiting type: unspecified Vomiting Intractability: non-intractable Qualified Code(s): R11.2 - Nausea with vomiting, unspecified Alcohol withdrawal Qualifiers: Complication of substance-induced condition: uncomplicated Qualified Code(s): F10.230 - Alcohol dependence with withdrawal, uncomplicated Condition: Stable Record reviewed to determine appropriate education?: Yes Instructions: ED Withdrawal Alcohol Follow-Up: Khurram Thomas ARNP [Primary Care Provider] - Prescriptions: Famotidine 20 mg PO DAILY #30 tablet LORazepam [Ativan] 1 - 2 mg PO Q8H PRN #25 tablet PRN Reason: Anxiety Promethazine [Phenergan] 25 mg PO Q6H PRN #20 tab PRN Reason: Nausea / Vomiting Comments: Small frequent fluids. Avoid alcohol. Support with AA and other support groups for alcohol cessation. Use ondansetron or promethazine as needed for nausea. Use Lorazepam 1 to 2 tablets every 6-8 hours as needed for withdrawal symptoms and taper down the amount and increase the interval as you are able over the next several days to week to diminish the withdrawal symptoms. Use famotidine daily for the next couple of weeks to reduce the stomach irritation from the vomiting. Tylenol if needed for pains. Discharge Date/Time: 09/25/18 23:42
[2018-09-25 20:41] LABS: ALBUMIN 3.9 g/dL (3.2-5.5); ALBUMIN/GLOBULIN RATIO 1.4 (1.0-2.2); ALKALINE PHOSPHATASE 96 IU/L (42-121); ALT ALANINE AMINOTRANSFERASE 94 IU/L (10-60); AST ASPARTATE AMINOTRANSFERASE 158 IU/L (10-42); BILIRUBIN,TOTAL 0.4 mg/dL (0.2-1.0); BUN - BLOOD UREA NITROGEN < 5 mg/dL (6-20); CARBON DIOXIDE - CO2 24 mmol/L (21-32); CHLORIDE 105 mmol/L (101-111); CREATININE 0.7 mg/dL (0.4-1.0); GFR - MDRD 99 (>89); GLUCOSE 97 mg/dL (70-100); LIPASE 43 U/L (22-51); SODIUM 141 mmol/L (135-145); TOTAL PROTEIN 6.7 g/dL (6.7-8.2)
[2018-09-25] MEDS ORDERED: SODIUM CHLORIDE 0.9% 1,000 ML IV ONE (20:44)
[2018-09-25] MEDS ORDERED: ONDANSETRON 4 MG/2 ML VIAL IVP STA (20:44)
[2018-09-25] MEDS ORDERED: FAMOTIDINE 20 MG/2 ML VIAL IVP STA (20:45)
[2018-09-25] MEDS ORDERED: LORazepam 2 MG/ML VIAL IVP STA ×2 (20:45→21:29)
[2018-09-25] MEDS ORDERED: diphenhydrAMINE INJ 50 MG/ML VIAL IVP STA (21:29)
[2018-09-25] MEDS ORDERED: PROCHLORPERAZINE 10 MG/2 ML VIAL IVP STA (21:29)
[2018-09-25] MEDS ORDERED: LORazepam 1 MG TABLET PO STA (22:37)
[2018-09-25] MEDS ORDERED: ONDANSETRON ODT 4 MG Prepack 2 TL PRN (22:37)
[2018-09-25 23:42] VITALS: BP 110/68
== END 2018-09-25 23:42 | disposition home or self-care (01) ==
LOC: ED 19:52
DX: O99.315 Alcohol use complicating the puerperium (principal); F10.230 Alcohol dependence with withdrawal, uncomplicated; O99.285 Endocrine, nutritional and metabolic diseases complicating the puerperium; E86.0 Dehydration; R11.2 Nausea with vomiting, unspecified
CPT/HCPCS: 36415; 80053; 80320; 81001; 81025; 83690; 85025; 87086; 96374; 96375; 96376; 99284; J1200; J2060; J8499; 81003

== ENCOUNTER 2018-10-24 04:38 | Emergency (ER) | payer OTHER ==
[2018-10-24] MEDS ORDERED: SODIUM CHLORIDE 0.9% 1,000 ML IV ONE (04:56)
--- NOTE | 2018-10-24 05:09 | ED Physician Documentation ---
PD HPI NVD - Stated complaint Stated Complaint: NAUSEA - Chief complaint Chief Complaint: Abd Pain - History obtained from History obtained from: Patient, Family - History of Present Illness Timing - onset: Today Timing - duration: Hours (7) Timing - details: Abrupt onset Associated symptoms: Near syncope / syncope. No: Fever, Abdominal pain, Hematemesis Contributing factors: Alcohol use. No: Sick contact, Bad food Recently seen: Other (Just left detox 2 weeks ago) - Additonal information Additional information: This is a 28-year-old woman who presents with her dad and stepmother complains that she is been nauseous and vomiting since 10:00 last night she did not eat anything that she thinks may made her sick and there is no one else ill at home. She denies abdominal pain. Her dad tells me that she has not been eating for t he past 3 to 4 days. They are actually visiting here from out of town and she is been drinking heavily over the past 3 days. She has 3-6-siyg-old baby at home she was sober during her and then went to rehab just being discharged 2 weeks ago. She denies . She says she passed out in the bathroom but did not injure herself tonight. No fever and no physical illness. She works in [employer] here at [id number]. Review of Systems Constitutional: denies: Fever GI: reports: Nausea, Vomiting. denies: Abdominal Pain : reports: Other (Denies ). denies: Dysuria Musculoskeletal: denies: Neck pain, Back pain Neurologic: reports: Generalized weakness, Syncope. 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) HEENT: None Psych: Depression, Other - Past Surgical History Past Surgical History: Yes /MOTOR GRADER OPERATOR: Dilation and currettage - Present Medications Home Medications: Ambulatory Orders Medication Instructions Recorded Confirmed Pnv No.95/Ferrous Fum/Folic AC 1 each PO DAILY 09/15/18 09/25/18 [ Caplet] Promethazine [Phenergan] 25 mg PO Q6H PRN #10 tab 09/15/18 09/25/18 Famotidine 20 mg PO DAILY #30 tablet 09/25/18 LORazepam [Ativan] 1 - 2 mg PO Q8H PRN #25 tablet 09/25/18 Promethazine [Phenergan] 25 mg PO Q6H PRN #20 tab 09/25/18 - Allergies Allergies/Adverse Reactions: Allergies Allergy/AdvReac Type Severity Reaction Status Date / Time hydrocodone bitartrate * AdvReac Mild Nausea Verified 10/24/18 04:45 [From Lortab] - Social History Does the pt smoke?: No Smoking Status: Never smoker Does the pt drink ETOH?: Yes Does the pt have substance abuse?: No - Immunizations Immunizations are current?: Yes - POLST Patient has POLST: No Results - Vitals Vitals: Vital Signs - 24 hr 10/24/18 10/24/18 04:42 06:44 Temperature 36.1 C L Heart Rate 109 H 100 Respiratory 17 16 Rate Blood Pressure 89/72 L 92/54 L O2 Saturation 100 100 Oxygen O2 Source Room air - Labs Labs: Laboratory Tests 10/24/18 10/24/18 10/24/18 05:10 05:21 05:21 WBC 5.4 RBC 4.19 L Hgb 11.4 L Hct 34.9 L MCV 83.3 MCH 27.2 MCHC 32.6 RDW 16.1 H Plt Count 341 MPV 7.7 L Neut # (Auto) 2.3 Lymph # (Auto) 2.4 [place] # (Auto) 0.5 Eos # (Auto) 0.1 Baso # (Auto) 0.1 Absolute Nucleated RBC 0.00 Nucleated RBC % 0.0 Sodium 144 Potassium 3.1 L Chloride 108 Carbon Dioxide 23 Anion Gap 13.0 BUN 5 L Creatinine 0.9 Estimated GFR (MDRD) 74 L Glucose 97 Calcium 8.7 Total Bilirubin 0.6 AST 379 H ALT 122 H Alkaline Phosphatase 67 Total Protein 6.8 Albumin 4.1 Globulin 2.7 Albumin/Globulin Ratio 1.5 Lipase 38 Urine Color YELLOW Urine Clarity HAZY Urine pH 5.5 Ur Specific [place] 1.025 Urine Protein TRACE Urine Glucose (UA) NEGATIVE Urine Ketones NEGATIVE Urine Occult Blood TRACE-LYSE Urine Nitrite NEGATIVE Urine Bilirubin NEGATIVE Urine Urobilinogen 0.2 (NORMAL) Ur Leukocyte Esterase SMALL H Urine RBC 0-5 Urine WBC 4-5 Ur Squamous Epith Cells MANY Squamous H Urine Bacteria Few Urine Mucus Few Strands Ur Microscopic Review INDICATED Urine Culture Comments NOT INDICATED Urine HCG, Qual NEGATIVE Urine Opiates Screen NEGATIVE Ur Oxycodone Screen NEGATIVE Urine Methadone Screen NEGATIVE Ur Propoxyphene Screen NEGATIVE Ur Barbiturates Screen NEGATIVE Ur Tricyclics Screen NEGATIVE Ur Phencyclidine Scrn NEGATIVE Ur Amphetamine Screen NEGATIVE U Methamphetamines Scrn NEGATIVE U Benzodiazepines Scrn POSITIVE H Urine Cocaine Screen NEGATIVE U Cannabinoids Screen NEGATIVE Ethyl Alcohol 169.6 PD MEDICAL DECISION MAKING - ED course Complexity details: re-evaluated patient ED course: 0559: Reevaluated patient and she was still vomiting despite Zofran and almost a full liter of fluids. I have ordered a banana bag and Phenergan IV. 0656: Nursing staff reports the patient still with nausea. Compazine ordered. 0712: Care turned over to Dr Gregory. KCL ordered IV.
[2018-10-24 05:18] LABS: BILIRUBIN,URINE NEGATIVE (NEGATIVE); GLUCOSE, URINE (UA) NEGATIVE (NEGATIVE); KETONES,URINE (UA) NEGATIVE (NEGATIVE); LEUKOCYTE ESTERASE, URINE SMALL (NEGATIVE); MUDS CUTOFF CONCENTRATIONS CUTOFF CONC BELOW:; NITRITE,URINE NEGATIVE (NEGATIVE); OCCULT BLOOD,URINE TRACE-LYSE (NEGATIVE); PH,URINE 5.5 PH (5.0-7.5); PROTEIN,URINE TRACE mg/dL (NEGATIVE); UROBILINOGEN,URINE 0.2 (NORMAL) E.U./dL (NORMAL)
[2018-10-24 05:19] LABS: CLARITY,URINE HAZY (CLEAR)
[2018-10-24 05:20] LABS: HCG UR QUAL NEGATIVE
[2018-10-24 05:32] LABS: BACTERIA,URINE Few /HPF (None Seen); COCAINE SCREEN URINE NEGATIVE (NEGATIVE); METHAMPHETAMINES SCREEN, URINE NEGATIVE (NEGATIVE); MUCUS,URINE Few Strands; OPIATE SCREEN, URINE NEGATIVE (NEGATIVE); RBC,URINE 0-5 /HPF (0-5); SQUAMOUS EPITHELIAL CELL,UR MANY Squamous (<= Few)
[2018-10-24 05:33] LABS: AMPHETAMINE SCREEN,URINE NEGATIVE (NEGATIVE); BENZODIAZEPINES SCREEN, URINE POSITIVE (NEGATIVE); METHADONE SCREEN, URINE NEGATIVE (NEGATIVE); OXYCODONE SCREEN, URINE NEGATIVE (NEGATIVE); PROPOXYPHENE SCREEN, URINE NEGATIVE (NEGATIVE); TRICYCLIC ANTIDEPRESSANT,URINE NEGATIVE (NEGATIVE)
[2018-10-24] MEDS ORDERED: ONDANSETRON 4 MG/2 ML VIAL IVP STA ×2 (05:37→08:03)
[2018-10-24 05:45] LABS: BASOPHILS # (AUTO) 0.1 10^3/uL (0.0-0.1); BASOPHILS % (AUTO) 2.6 %; EOSINOPHILS # (AUTO) 0.1 10^3/uL (0.0-0.7); HGB - HEMOGLOBIN 11.4 g/dL (12.0-16.0); LYMPHOCYTES # (AUTO) 2.4 10^3/uL (1.5-3.5); LYMPHOCYTES % (AUTO) 43.6 %; MEAN CORPUSCULAR HEMOGLOBIN 27.2 pg (27.0-31.0); MEAN CORPUSCULAR HGB CONC 32.6 g/dL (32.0-36.0); MEAN CORPUSCULAR VOLUME 83.3 fL (81.0-99.0); MEAN PLATELET VOLUME 7.7 fL (7.9-10.8); MONOCYTES # (AUTO) 0.5 10^3/uL (0.0-1.0); MONOCYTES % (AUTO) 9.6 %; NEUTROPHILS # (AUTO) 2.3 10^3/uL (1.5-6.6); NEUTROPHILS % (AUTO) 42.2 %; PLT - PLATELET COUNT 341 10^3/uL (130-450); RED BLOOD COUNT 4.19 10^6/uL (4.20-5.40); RED CELL DISTRIBUTION WIDTH 16.1 % (12.0-15.0); WHITE BLOOD COUNT 5.4 x10^3/uL (4.8-10.8)
[2018-10-24 05:52] LABS: ALBUMIN 4.1 g/dL (3.2-5.5); ALBUMIN/GLOBULIN RATIO 1.5 (1.0-2.2); BILIRUBIN,TOTAL 0.6 mg/dL (0.2-1.0); CALCIUM 8.7 mg/dL (8.5-10.3); CREATININE 0.9 mg/dL (0.4-1.0); TOTAL PROTEIN 6.8 g/dL (6.7-8.2)
[2018-10-24] MEDS ORDERED: FOLIC ACID INJ 1 MG, THIAMINE INJ 100 MG, MAGNESIUM SULFATE 2 GM, MULTIVITAMIN 10 ML in... IV STA ×5 (05:57)
[2018-10-24] MEDS ORDERED: PROMETHAZINE INJ 25 MG in SODIUM CHLORIDE 0.9% 50 ML IV STA (05:57)
[2018-10-24] MEDS ORDERED: LORazepam 2 MG/ML VIAL IVP STA (06:08)
[2018-10-24] MEDS ORDERED: THIAMINE 100 MG/1 ML 2 ML MDV ONE (06:16)
[2018-10-24] MEDS ORDERED: PROCHLORPERAZINE 10 MG/2 ML VIAL IVP STA (06:55)
[2018-10-24] MEDS ORDERED: POTASSIUM CHLOR 20 MEQ/100 ML 20 MEQ/100 ML BAG IV ONE (07:10)
[2018-10-24 08:50] VITALS: BP 101/75
--- NOTE | 2018-10-24 09:11 | ED Physician Documentation ---
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: Ovarian cysts, Miscarriage(s) HEENT: None Psych: Depression, Other - Past Surgical History Past Surgical History: Yes /PROPERTY PRESERVATION SPECIALIST: Dilation and currettage - Present Medications Home Medications: Ambulatory Orders Medication Instructions Recorded Confirmed Pnv No.95/Ferrous Fum/Folic AC 1 each PO DAILY 09/15/18 09/25/18 [ Caplet] Promethazine [Phenergan] 25 mg PO Q6H PRN #10 tab 09/15/18 09/25/18 Famotidine 20 mg PO DAILY #30 tablet 09/25/18 LORazepam [Ativan] 1 - 2 mg PO Q8H PRN #25 tablet 09/25/18 Promethazine [Phenergan] 25 mg PO Q6H PRN #20 tab 09/25/18 Potassium Chloride [K-Dur] 20 meq PO BIDWM #14 tablet 10/24/18 - Allergies Allergies/Adverse Reactions: Allergies Allergy/AdvReac Type Severity Reaction Status Date / Time hydrocodone bitartrate * AdvReac Mild Nausea Verified 10/24/18 04:45 [From Lortab] - Social History Does the pt smoke?: No Smoking Status: Never smoker Does the pt drink ETOH?: Yes Does the pt have substance abuse?: No - Immunizations Immunizations are current?: Yes - POLST Patient has POLST: No Results - Vitals Vitals: Vital Signs - 24 hr 10/24/18 10/24/18 10/24/18 04:42 06:44 08:49 Temperature 36.1 C L Heart Rate 109 H 100 75 Respiratory 17 16 14 Rate Blood Pressure 89/72 L 92/54 L 101/75 O2 Saturation 100 100 99 Oxygen O2 Source Room air - Labs Labs: Laboratory Tests 10/24/18 10/24/18 10/24/18 05:10 05:21 05:21 WBC 5.4 RBC 4.19 L Hgb 11.4 L Hct 34.9 L MCV 83.3 MCH 27.2 MCHC 32.6 RDW 16.1 H Plt Count 341 MPV 7.7 L Neut # (Auto) 2.3 Lymph # (Auto) 2.4 [place] # (Auto) 0.5 Eos # (Auto) 0.1 Baso # (Auto) 0.1 Absolute Nucleated RBC 0.00 Nucleated RBC % 0.0 Sodium 144 Potassium 3.1 L Chloride 108 Carbon Dioxide 23 Anion Gap 13.0 BUN 5 L Creatinine 0.9 Estimated GFR (MDRD) 74 L Glucose 97 Calcium 8.7 Total Bilirubin 0.6 AST 379 H ALT 122 H Alkaline Phosphatase 67 Total Protein 6.8 Albumin 4.1 Globulin 2.7 Albumin/Globulin Ratio 1.5 Lipase 38 Urine Color YELLOW Urine Clarity HAZY Urine pH 5.5 Ur Specific [place] 1.025 Urine Protein TRACE Urine Glucose (UA) NEGATIVE Urine Ketones NEGATIVE Urine Occult Blood TRACE-LYSE Urine Nitrite NEGATIVE Urine Bilirubin NEGATIVE Urine Urobilinogen 0.2 (NORMAL) Ur Leukocyte Esterase SMALL H Urine RBC 0-5 Urine WBC 4-5 Ur Squamous Epith Cells MANY Squamous H Urine Bacteria Few Urine Mucus Few Strands Ur Microscopic Review INDICATED Urine Culture Comments NOT INDICATED Urine HCG, Qual NEGATIVE Urine Opiates Screen NEGATIVE Ur Oxycodone Screen NEGATIVE Urine Methadone Screen NEGATIVE Ur Propoxyphene Screen NEGATIVE Ur Barbiturates Screen NEGATIVE Ur Tricyclics Screen NEGATIVE Ur Phencyclidine Scrn NEGATIVE Ur Amphetamine Screen NEGATIVE U Methamphetamines Scrn NEGATIVE U Benzodiazepines Scrn POSITIVE H Urine Cocaine Screen NEGATIVE U Cannabinoids Screen NEGATIVE Ethyl Alcohol 169.6 PD MEDICAL DECISION MAKING - ED course Complexity details: re-evaluated patient, considered differential, d/w patient, d/w family ED course: At change of shift the patient's care was turned over to me pending lab results and response to therapy. Her lab results reveal hypokalemia with potassium of 3.1, and mildly elevated liver enzymes with AST of 379 and ALT 122. Bilirubin is normal. Alcohol level is elevated at 169. Urine tox screen is positive for benzodiazepines, and negative for all other drugs tested. Further treatment in the emergency department included administration of Zofran 4 mg IV. On reexamination the patient feels subjectively improved and wants to be discharged. Her abdominal exam is benign. She is being discharged with p rescription for supplemental potassium. I discussed with her and her father the results of her work-up, outpatient treatment and follow up, as well as potentially worrisome signs or symptoms that should prompt reevaluation in the emergency department. Departure - Departure Disposition: 01 Home, Self Care Clinical Impression: Alcohol abuse, Hypokalemia Abdominal pain Qualifiers: Abdominal location: upper abdomen, unspecified Qualified Code(s): R10.10 - Upper abdominal pain, unspecified Condition: Stable Instructions: ED Abdominal Pain Unkn Cause, ED Potassium Deficiency Follow-Up: Khurram Thomas ARNP [Primary Care Provider] - Prescriptions: Potassium Chloride [K-Dur] 20 meq PO BIDWM #14 tablet Comments: Drink plenty of fluids, but avoid drinking alcohol. Use previously prescribed Zofran if needed for recurrent nausea. Follow-up with your primary physician within 2 weeks. Call to schedule an appointment. Return to the emergency department if you develop increasing abdominal pain, persistent vomiting, or otherwise worsening symptoms. Discharge Date/Time: 10/24/18 09:18
== END 2018-10-24 09:18 | disposition home or self-care (01) ==
LOC: ED 04:38
DX: F10.10 Alcohol abuse, uncomplicated (principal); Y90.6 Blood alcohol level of 120-199 mg/100 ml; E87.6 Hypokalemia; R10.10 Upper abdominal pain, unspecified; R11.2 Nausea with vomiting, unspecified
CPT/HCPCS: 36415; 80053; 80320; 81001; 81025; 83690; 85025; 96361; 96365; 96375; 96376; 99283; J2060; J3411; J7040; 80306; 81003; 87086

== ENCOUNTER 2018-11-22 06:12 | Emergency (ER) | payer OTHER ==
--- NOTE | 2018-11-22 06:21 | ED Physician Documentation ---
<Letitia Wheatley - Last Filed: 11/22/18 06:48> PD HPI ABD PAIN - Stated complaint Stated Complaint: N/V - Chief complaint Chief Complaint: Abd Pain - History obtained from History obtained from: Patient - History of Present Illness Timing - onset: Yesterday Timing - duration: Hours (12) Timing - details: Gradual onset Quality: Other (Unable to specify) Location: RUQ, Epigastric, LUQ Improved by: Other (Nothing) Associated symptoms: Nausea, Vomiting, Hematemesis (The last emesis looked red and she tasted blood), Dizzy. No: Fever, Diarrhea, Hematochezia, Dysuria Recently seen: Emergency Dept - Additional information Additional information: This is a 28-year-old woman who was just discharged from alcohol rehab where she was for 28 days yesterday. She said starting 3 days ago she was feeling a little bit sick while she was at the rehab with some nausea but then she got discharged and started vomiting and went to [facility] around 7:00 last n ight. She was there past midnight she was still dry heaving per her report when she left they gave her Zofran and baclofen. She woke up this morning feeling worse. Last emesis was around 5:00 and she says she tasted blood and there was a red tent to it. She combines of feeling dizzy and that she almost collapsed but her caught her before she hit the ground. She has not passed out. She complains of pain being under the rib cage in the anterior abdomen bilaterally. She has had some diarrhea. Denies any dysuria and denies stating she is 3 months . She is not breast-feeding. She was given a prescription for Zofran at discharge this morning but she has not taken it. She denies use of marijuana. 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: Ovarian cysts, Miscarriage(s) HEENT: None Psych: Depression, Other - Past Surgical History Past Surgical History: Yes /PACKAGING INSPECTOR: Dilation and currettage - Present Medications Home Medications: Ambulatory Orders Medication Instructions Recorded Confirmed Pnv No.95/Ferrous Fum/Folic AC 1 each PO DAILY 09/15/18 09/25/18 [ Caplet] Promethazine [Phenergan] 25 mg PO Q6H PRN #10 tab 09/15/18 09/25/18 Famotidine 20 mg PO DAILY #30 tablet 09/25/18 LORazepam [Ativan] 1 - 2 mg PO Q8H PRN #25 tablet 09/25/18 Promethazine [Phenergan] 25 mg PO Q6H PRN #20 tab 09/25/18 Potassium Chloride [K-Dur] 20 meq PO BIDWM #14 tablet 10/24/18 LORazepam [Ativan] 1 mg PO Q6HR PRN #12 tablet 11/22/18 - Allergies Allergies/Adverse Reactions: Allergies Allergy/AdvReac Type Severity Reaction Status Date / Time hydrocodone bitartrate * AdvReac Mild Nausea Verified 11/22/18 06:18 [From Lortab] - Social History Does the pt smoke?: No Smoking Status: Never smoker Does the pt drink ETOH?: Yes Does the pt have substance abuse?: No - Immunizations Immunizations are current?: Yes - POLST Patient has POLST: No PD ED PE NORMAL - Vitals Vital signs reviewed: Yes - General General: 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, Other (She is laying on her side rocking back and forth in pain.) - HEENT HEENT: PERRL, Other (No scleral icterus. Dry mucous membranes.) - Neck Neck: No adenopathy, Thyroid normal - Cardiac Cardiac: RRR, No murmur - Respiratory Respiratory: No respiratory distress, Clear bilaterally - Abdomen Abdomen: Normal bowel sounds, Soft, Other (Tender in the epigastric area and upper quadrants bilaterally.) - Derm Derm: Normal color, Warm and dry - Neuro Neuro: 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, Normal speech, Other (No gross neurological deficits.) PD MEDICAL DECISION MAKING - ED course Complexity details: reviewed old records, d/w patient ED course: I did obtain the re-records from [place] and indeed she was seen last night indications that the CBC BMP and urinalysis were normal. She had been given a liter of fluids 4 of Zofran and baclofen p.o. I have ordered an IV, laboratory studies including an alcohol level and a urine drug screen. The patient was Mickey medicated with Protonix within the past 12 hours. Care will be turned over to Dr. Cardoza to follow-up on the labs. Departure - Departure Disposition: 01 Home, Self Care Clinical Impression: Hyperventilation syndrome Nausea & vomiting Qualifiers: Vomiting type: unspecified Vomiting Intractability: non-intractable Qualified Code(s): R11.2 - Nausea with vomiting, unspecified Instructions: ED Nausea Vomiting, ED Hyperventilation Syndrome Follow-Up: Khurram Thomas ARNP [Primary Care Provider] - Prescriptions: LORazepam [Ativan] 1 mg PO Q6HR PRN #12 tablet PRN Reason: Anxiety <Mac Cardoza - Last Filed: 11/22/18 09:53> Results - Vitals Vitals: Vital Signs - 24 hr 11/22/18 11/22/18 06:15 09:30 Temperature 36.2 C L Heart Rate 90 72 Respiratory 18 18 Rate Blood Pressure 114/80 123/83 H O2 Saturation 100 100 Oxygen O2 Source Room air - Labs Labs: Laboratory Tests 11/22/18 11/22/18 11/22/18 06:30 06:30 06:45 WBC 6.0 RBC 4.43 Hgb 12.4 Hct 36.6 L MCV 82.6 MCH 28.0 MCHC 33.9 RDW 15.2 H Plt Count 245 MPV 11.0 H Neut # (Auto) 4.3 Lymph # (Auto) 1.2 L [place] # (Auto) 0.4 Eos # (Auto) 0.0 Baso # (Auto) 0.1 Absolute Nucleated RBC 0.00 Nucleated RBC % 0.0 Sodium 139 Potassium 3.7 Chloride 107 Carbon Dioxide 18 L Anion Gap 14.0 H BUN 8 Creatinine 0.8 Estimated GFR (MDRD) 84 L Glucose 122 H Calcium 9.8 Total Bilirubin 0.9 AST 32 ALT 25 Alkaline Phosphatase 42 Total Protein 7.3 Albumin 4.4 Globulin 2.9 Albumin/Globulin Ratio 1.5 Lipase 41 Urine Color YELLOW Urine Clarity HAZY Urine pH 8.5 H Ur Specific [place] 1.010 Urine Protein NEGATIVE Urine Glucose (UA) NEGATIVE Urine Ketones 15 H Urine Occult Blood TRACE-LYSE Urine Nitrite NEGATIVE Urine Bilirubin NEGATIVE Urine Urobilinogen 0.2 (NORMAL) Ur Leukocyte Esterase NEGATIVE Urine RBC 0-5 Urine WBC 0-3 Ur Squamous Epith Cells MANY Squamous H Urine Bacteria Rare Ur Microscopic Review INDICATED Urine Culture Comments NOT INDICATED Urine HCG, Qual Urine Opiates Screen NEGATIVE Ur Oxycodone Screen NEGATIVE Urine Methadone Screen NEGATIVE Ur Propoxyphene Screen NEGATIVE Ur Barbiturates Screen NEGATIVE Ur Tricyclics Screen NEGATIVE Ur Phencyclidine Scrn NEGATIVE Ur Amphetamine Screen NEGATIVE U Methamphetamines Scrn NEGATIVE U Benzodiazepines Scrn POSITIVE H Urine Cocaine Screen NEGATIVE U Cannabinoids Screen NEGATIVE Ethyl Alcohol < 5.0 11/22/18 06:45 WBC RBC Hgb Hct MCV MCH MCHC RDW Plt Count MPV Neut # (Auto) Lymph # (Auto) [place] # (Auto) Eos # (Auto) Baso # (Auto) Absolute Nucleated RBC Nucleated RBC % Sodium Potassium Chloride Carbon Dioxide Anion Gap BUN Creatinine Estimated GFR (MDRD) Glucose Calcium Total Bilirubin AST ALT Alkaline Phosphatase Total Protein Albumin Globulin Albumin/Globulin Ratio Lipase Urine Color Urine Clarity Urine pH Ur Specific [place] 1.010 Urine Protein Urine Glucose (UA) Urine Ketones Urine Occult Blood Urine Nitrite Urine Bilirubin Urine Urobilinogen Ur Leukocyte Esterase Urine RBC Urine WBC Ur Squamous Epith Cells Urine Bacteria Ur Microscopic Review Urine Culture Comments Urine HCG, Qual NEGATIVE Urine Opiates Screen Ur Oxycodone Screen Urine Methadone Screen Ur Propoxyphene Screen Ur Barbiturates Screen Ur Tricyclics Screen Ur Phencyclidine Scrn Ur Amphetamine Screen U Methamphetamines Scrn U Benzodiazepines Scrn Urine Cocaine Screen U Cannabinoids Screen Ethyl Alcohol PD MEDICAL DECISION MAKING - ED course ED course: 28-year-old female with long-standing alcoholism has been discharged from alcohol rehabilitation went home and immediately began to have vomiting she is developed some abdominal pain along the lower margin of the ribs worse with vomiting. She states that usually this is similar presentation has been related to alcohol she denies alcohol use. She has been given Librium and Ativan while she was in rehab as well as Antabuse. She has been given baclofen in the rehab facility. Today on my evaluation in the emergency department the patient is hyperventilating appears anxious she is complaining of numbness and tingling as well as pain to the upper abdomen and on examination she is a bit tender along the costal margin bilaterally. She is administered intravenous Ativan and has marked improvement.
[2018-11-22] MEDS ORDERED: ONDANSETRON 4 MG/2 ML VIAL IVP STA (06:40)
[2018-11-22] MEDS ORDERED: SODIUM CHLORIDE 0.9% 1,000 ML IV ONE ×2 (06:40)
[2018-11-22 06:49] LABS: BASOPHILS # (AUTO) 0.1 10^3/uL (0.0-0.1); BASOPHILS % (AUTO) 0.8 %; EOSINOPHILS % (AUTO) 0.3 %; HGB - HEMOGLOBIN 12.4 g/dL (12.0-16.0); LYMPHOCYTES # (AUTO) 1.2 10^3/uL (1.5-3.5); LYMPHOCYTES % (AUTO) 20.4 %; MEAN CORPUSCULAR HGB CONC 33.9 g/dL (32.0-36.0); MEAN CORPUSCULAR VOLUME 82.6 fL (81.0-99.0); MONOCYTES # (AUTO) 0.4 10^3/uL (0.0-1.0); MONOCYTES % (AUTO) 5.9 %; NEUTROPHILS # (AUTO) 4.3 10^3/uL (1.5-6.6); NEUTROPHILS % (AUTO) 72.3 %; PLT - PLATELET COUNT 245 10^3/uL (130-450); RED BLOOD COUNT 4.43 10^6/uL (4.20-5.40); RED CELL DISTRIBUTION WIDTH 15.2 % (12.0-15.0)
[2018-11-22 07:00] LABS: ALBUMIN 4.4 g/dL (3.2-5.5); ALBUMIN/GLOBULIN RATIO 1.5 (1.0-2.2); ALKALINE PHOSPHATASE 42 IU/L (42-121); ALT ALANINE AMINOTRANSFERASE 25 IU/L (10-60); AST ASPARTATE AMINOTRANSFERASE 32 IU/L (10-42); BILIRUBIN,TOTAL 0.9 mg/dL (0.2-1.0); BUN - BLOOD UREA NITROGEN 8 mg/dL (6-20); CALCIUM 9.8 mg/dL (8.5-10.3); CARBON DIOXIDE - CO2 18 mmol/L (21-32); CHLORIDE 107 mmol/L (101-111); CREATININE 0.8 mg/dL (0.4-1.0); GFR - MDRD 84 (>89); GLUCOSE 122 mg/dL (70-100); LIPASE 41 U/L (22-51); SODIUM 139 mmol/L (135-145); TOTAL PROTEIN 7.3 g/dL (6.7-8.2)
[2018-11-22 07:03] LABS: MUDS CUTOFF CONCENTRATIONS CUTOFF CONC BELOW:
[2018-11-22 07:11] LABS: BILIRUBIN,URINE NEGATIVE (NEGATIVE); GLUCOSE, URINE (UA) NEGATIVE (NEGATIVE); KETONES,URINE (UA) 15 mg/dL (NEGATIVE); LEUKOCYTE ESTERASE, URINE NEGATIVE (NEGATIVE); NITRITE,URINE NEGATIVE (NEGATIVE); OCCULT BLOOD,URINE TRACE-LYSE (NEGATIVE); PH,URINE 8.5 PH (5.0-7.5); PROTEIN,URINE NEGATIVE (NEGATIVE); UROBILINOGEN,URINE 0.2 (NORMAL) E.U./dL (NORMAL)
[2018-11-22 07:13] LABS: CLARITY,URINE HAZY (CLEAR); HCG UR QUAL NEGATIVE
[2018-11-22] MEDS ORDERED: PROMETHAZINE INJ 25 MG in SODIUM CHLORIDE 0.9% 50 ML IV STA (07:22)
[2018-11-22 07:23] LABS: AMPHETAMINE SCREEN,URINE NEGATIVE (NEGATIVE); BENZODIAZEPINES SCREEN, URINE POSITIVE (NEGATIVE); COCAINE SCREEN URINE NEGATIVE (NEGATIVE); METHADONE SCREEN, URINE NEGATIVE (NEGATIVE); METHAMPHETAMINES SCREEN, URINE NEGATIVE (NEGATIVE); OPIATE SCREEN, URINE NEGATIVE (NEGATIVE); OXYCODONE SCREEN, URINE NEGATIVE (NEGATIVE); PROPOXYPHENE SCREEN, URINE NEGATIVE (NEGATIVE); TRICYCLIC ANTIDEPRESSANT,URINE NEGATIVE (NEGATIVE)
[2018-11-22 07:26] LABS: BACTERIA,URINE Rare /HPF (None Seen); RBC,URINE 0-5 /HPF (0-5); SQUAMOUS EPITHELIAL CELL,UR MANY Squamous (<= Few)
[2018-11-22] MEDS ORDERED: LORazepam 2 MG/ML VIAL IVP STA (07:32)
[2018-11-22 10:06] VITALS: BP 128/68
== END 2018-11-22 10:05 | disposition home or self-care (01) ==
LOC: ED 06:12
DX: K92.0 Hematemesis (principal); F45.8 Other somatoform disorders; R11.2 Nausea with vomiting, unspecified
CPT/HCPCS: 36415; 80053; 80320; 81001; 81025; 83690; 85025; 96361; 96365; 96375; 99283; 99284; J2060; J7040; 80306; 81003; 87086

== ENCOUNTER 2018-11-30 06:19 | Emergency (ER) | payer OTHER ==
[2018-11-30 06:45] LABS: BILIRUBIN,URINE NEGATIVE (NEGATIVE); GLUCOSE, URINE (UA) NEGATIVE (NEGATIVE); KETONES,URINE (UA) NEGATIVE (NEGATIVE); LEUKOCYTE ESTERASE, URINE NEGATIVE (NEGATIVE); NITRITE,URINE NEGATIVE (NEGATIVE); OCCULT BLOOD,URINE LARGE (NEGATIVE); PROTEIN,URINE 30 mg/dL (NEGATIVE); UROBILINOGEN,URINE 0.2 (NORMAL) E.U./dL (NORMAL)
[2018-11-30 06:47] LABS: CLARITY,URINE HAZY (CLEAR); HCG UR QUAL NEGATIVE
[2018-11-30 06:58] LABS: BACTERIA,URINE Rare /HPF (None Seen); RBC,URINE TNTC /HPF (0-5); SQUAMOUS EPITHELIAL CELL,UR MOD Squamous (<= Few)
[2018-11-30 07:04] LABS: BASOPHILS # (AUTO) 0.1 10^3/uL (0.0-0.1); BASOPHILS % (AUTO) 1.2 %; EOSINOPHILS # (AUTO) 0.2 10^3/uL (0.0-0.7); EOSINOPHILS % (AUTO) 4.2 %; HGB - HEMOGLOBIN 11.4 g/dL (12.0-16.0); LYMPHOCYTES # (AUTO) 1.4 10^3/uL (1.5-3.5); LYMPHOCYTES % (AUTO) 34.2 %; MEAN CORPUSCULAR HEMOGLOBIN 27.6 pg (27.0-31.0); MEAN CORPUSCULAR HGB CONC 32.6 g/dL (32.0-36.0); MEAN CORPUSCULAR VOLUME 84.7 fL (81.0-99.0); MEAN PLATELET VOLUME 10.5 fL (7.9-10.8); MONOCYTES # (AUTO) 0.4 10^3/uL (0.0-1.0); MONOCYTES % (AUTO) 9.1 %; NEUTROPHILS # (AUTO) 2.1 10^3/uL (1.5-6.6); NEUTROPHILS % (AUTO) 51.1 %; PLT - PLATELET COUNT 204 10^3/uL (130-450); RED BLOOD COUNT 4.13 10^6/uL (4.20-5.40); RED CELL DISTRIBUTION WIDTH 14.6 % (12.0-15.0); WHITE BLOOD COUNT 4.1 x10^3/uL (4.8-10.8)
[2018-11-30] MEDS ORDERED: ONDANSETRON 4 MG/2 ML VIAL IVP STA (07:06)
[2018-11-30] MEDS ORDERED: SODIUM CHLORIDE 0.9% 1,000 ML IV ONE ×2 (07:06)
--- NOTE | 2018-11-30 07:13 | ED Physician Documentation ---
PD HPI ABD PAIN - Stated complaint Stated Complaint: NAUSEA/VOMITING - Chief complaint Chief Complaint: Abd Pain - History obtained from History obtained from: Patient - History of Present Illness Timing - onset: How many days ago (5) Timing - duration: Days (5) Timing - details: Gradual onset, Waxing and waning Pain level max: 8 Pain level now: 5 Quality: Cramping, Aching, Pain Location: All over / everywhere Radiation: No: Chest, , Lower back, Left flank, Left shoulder, Right flank, Right shoulder, Upper back Improved by: Other (nothing) Worsened by: Eating Associated symptoms: Nausea, Vomiting, Diarrhea. No: Fever, Hematemesis, Constipation, Melena, Hematochezia, Dysuria, Hematuria Recently seen: Not recently seen - Additional information Additional information: no new medications. no recent abx. no travel. no fever. 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) HEENT: None Psych: Depression, Other - Past Surgical History Past Surgical History: Yes /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125 mg SL Q6H PRN #10 tab.subl 11/30/18 Ondansetron Odt [Zofran] 4 mg TL Q6H PRN #10 tablet 11/30/18 - Allergies Allergies/Adverse Reactions: Allergies Allergy/AdvReac Type Severity Reaction Status Date / Time hydrocodone bitartrate * AdvReac Mild Nausea Verified 11/30/18 06:34 [From Lortab] - Social History Does the pt smoke?: No Smoking Status: Never smoker Does the pt drink ETOH?: Yes Does the pt have substance abuse?: No - Immunizations Immunizations are current?: Yes - POLST Patient has POLST: No PD ED PE NORMAL - Vitals Vital signs reviewed: Yes - General General: 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, No acute distress - HEENT HEENT: Moist mucous membranes - Neck Neck: Supple, no meningeal sign - Cardiac Cardiac: RRR, Strong equal pulses - Respiratory Respiratory: No respiratory distress, Clear bilaterally - Abdomen Abdomen: Soft, Non distended, Other (mild diffuse TTP. no peritoneal signs) - Back Back: No spinal TTP - Derm Derm: Warm and dry - Extremities Extremities: No edema, No calf tenderness / cord - Neuro Neuro: 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 - Psych Psych: Normal mood, Normal affect Results - Vitals Vitals: Vital Signs - 24 hr 11/30/18 11/30/18 06:30 08:25 Temperature 36.0 C L Heart Rate 93 64 Respiratory 18 18 Rate Blood Pressure 117/94 H 127/90 H O2 Saturation 100 100 Oxygen O2 Source Room air - Labs Labs: Laboratory Tests 11/30/18 11/30/18 11/30/18 06:40 06:55 06:55 WBC 4.1 L RBC 4.13 L Hgb 11.4 L Hct 35.0 L MCV 84.7 MCH 27.6 MCHC 32.6 RDW 14.6 Plt Count 204 MPV 10.5 Neut # (Auto) 2.1 Lymph # (Auto) 1.4 L [place] # (Auto) 0.4 Eos # (Auto) 0.2 Baso # (Auto) 0.1 Absolute Nucleated RBC 0.00 Nucleated RBC % 0.0 Sodium 141 Potassium 3.4 L Chloride 104 Carbon Dioxide 24 Anion Gap 13.0 BUN 7 Creatinine 0.9 Estimated GFR (MDRD) 74 L Glucose 87 Calcium 9.3 Total Bilirubin 1.2 H AST 75 H ALT 38 Alkaline Phosphatase 47 Total Protein 6.8 Albumin 4.1 Globulin 2.7 Albumin/Globulin Ratio 1.5 Lipase 48 Urine Color YELLOW Urine Clarity HAZY Urine pH 6.0 Ur Specific [place] 1.020 Urine Protein 30 H Urine Glucose (UA) NEGATIVE Urine Ketones NEGATIVE Urine Occult Blood LARGE H Urine Nitrite NEGATIVE Urine Bilirubin NEGATIVE Urine Urobilinogen 0.2 (NORMAL) Ur Leukocyte Esterase NEGATIVE Urine RBC TNTC H Urine WBC 0-3 Ur Squamous Epith Cells MOD Squamous H Urine Bacteria Rare Ur Microscopic Review INDICATED Urine Culture Comments NOT INDICATED Urine HCG, Qual NEGATIVE PD MEDICAL DECISION MAKING - ED course Complexity details: reviewed results, re-evaluated patient, considered differential, d/w patient, d/w family ED course: 28-year-old female with what appears to be a viral gastroenteritis. She is well-appearing, nontoxic. Given IV fluids, Zofran. She was also given Toradol and Protonix. Feels much better. Tolerating p.o. without difficulty. Drinking Gatorade. Abdomen is soft, nontender nondistended on serial exam. She will follow-up with her PCP for further care. Patient counseled regarding signs and symptoms for which I believe and urgent re-evaluation would be necessary. Patient with good understanding of and agreement to plan and is comfortable go ing home at this time This document was made in part using voice recognition software. While efforts are made to proofread this document, sound alike and grammatical errors may occur. Departure - Departure Disposition: 01 Home, Self Care Clinical Impression: Gastroenteritis Condition: Good Instructions: ED Gastroenteritis Viral Follow-Up: your,doctor in 1 week for recheck [Other] Prescriptions: Hyoscyamine Sulfate [Levsin-Sl] 0.125 mg SL Q6H PRN #10 tab.subl PRN Reason: Abdominal Pain Ondansetron Odt [Zofran] 4 mg TL Q6H PRN #10 tablet PRN Reason: Nausea / Vomiting Comments: Return if you worsen. Drink plenty of fluids and rest. This should improve over the next 24-48 hours. Forms: Activity restrictions
[2018-11-30] MEDS ORDERED: PANTOPRAZOLE 40 MG VIAL IVP STA (07:18)
[2018-11-30] MEDS ORDERED: KETOROLAC 30 MG/ML VIAL IVP STA (07:18)
[2018-11-30 07:22] LABS: ALBUMIN 4.1 g/dL (3.2-5.5); ALBUMIN/GLOBULIN RATIO 1.5 (1.0-2.2); BILIRUBIN,TOTAL 1.2 mg/dL (0.2-1.0); CALCIUM 9.3 mg/dL (8.5-10.3); CREATININE 0.9 mg/dL (0.4-1.0); TOTAL PROTEIN 6.8 g/dL (6.7-8.2)
[2018-11-30 08:32] VITALS: BP 127/90
== END 2018-11-30 08:32 | disposition home or self-care (01) ==
LOC: ED 06:19
DX: K52.9 Noninfective gastroenteritis and colitis, unspecified (principal)
CPT/HCPCS: 36415; 80053; 81001; 81003; 81025; 83690; 85025; 87086; 96374; 96375; 99284

== ENCOUNTER 2018-12-27 06:03 | Emergency (ER) | payer OTHER ==
--- NOTE | 2018-12-27 06:29 | ED Physician Documentation ---
History of Present Illness - Stated complaint Stated Complaint: NVD - Chief complaint Chief Complaint: Abd Pain - Additonal information Additional information: This is a 28-year-old female With a history of alcohol use and alcoholic gastritis who presents with nausea vomiting and abdominal discomfort since last night. She is a poor historian, and refuses to answer some questions, she was drinking yesterday, though she does not quantify how much. She began developing abdominal pain and vomiting overnight. She denies any blood in her vomit. She has also had some diarrhea. She denies fever. No dysuria. 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: Ovarian cysts, Miscarriage(s) HEENT: None Psych: Depression, Other - Past Surgical History Past Surgical History: Yes /SKILLED NURSING FACILITY COUNSELOR: Dilation and currettage - Present Medications Home Medications: Ambulatory Orders Medication Instructions Recorded Confirmed Pnv No.95/Ferrous Fum/Folic AC 1 each PO DAILY 09/15/18 09/25/18 [ Caplet] Promethazine [Phenergan] 25 mg PO Q6H PRN #10 tab 09/15/18 09/25/18 Famotidine 20 mg PO DAILY #30 tablet 09/25/18 LORazepam [Ativan] 1 - 2 mg PO Q8H PRN #25 tablet 09/25/18 Promethazine [Phenergan] 25 mg PO Q6H PRN #20 tab 09/25/18 Potassium Chloride [K-Dur] 20 meq PO BIDWM #14 tablet 10/24/18 LORazepam [Ativan] 1 mg PO Q6HR PRN #12 tablet 11/22/18 Hyoscyamine Sulfate [Levsin-Sl] 0.125 mg SL Q6H PRN #10 tab.subl 11/30/18 Ondansetron Odt [Zofran] 4 mg TL Q6H PRN #10 tablet 11/30/18 - Allergies Allergies/Adverse Reactions: Allergies Allergy/AdvReac Type Severity Reaction Status Date / Time hydrocodone bitartrate * AdvReac Mild Nausea Verified 12/27/18 06:21 [From Lortab] - Social History Does the pt smoke?: No Smoking Status: Never smoker Does the pt drink ETOH?: Yes Does the pt have substance abuse?: No - Immunizations Immunizations are current?: Yes - POLST Patient has POLST: No PD ED PE NORMAL - Vitals Vital signs reviewed: Yes - General General: Other (Somewhat uncomfortable appearing but nontoxic, lying in bed, awake.) - HEENT HEENT: PERRL - Neck Neck: Supple, no meningeal sign - Cardiac Cardiac: RRR - Respiratory Respiratory: Clear bilaterally - Abdomen Abdomen: Soft, Other (Patient has mild tenderness in the epigastrium, otherwise abdomen is nontender. It is not distended. There is no guarding.) - Derm Derm: Warm and dry - Extremities Extremities: No deformity - Neuro Neuro: 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, [place] 2-12 intact, No motor deficit, No sensory deficit Results - Vitals Vitals: Vital Signs - 24 hr 12/27/18 12/27/18 06:16 07:25 Temperature 37.1 C Heart Rate 90 Respiratory 16 Rate Blood Pressure 111/80 130/108 H O2 Saturation 100 Oxygen O2 Source Room air - Labs Labs: Laboratory Tests 12/27/18 12/27/18 12/27/18 06:45 06:45 07:14 WBC 3.3 L RBC 3.95 L Hgb 11.2 L Hct 33.5 L MCV 84.8 MCH 28.4 MCHC 33.4 RDW 14.5 Plt Count 201 MPV 9.5 Neut # (Auto) 2.0 Lymph # (Auto) 1.0 L [place] # (Auto) 0.2 Eos # (Auto) 0.1 Baso # (Auto) 0.0 Absolute Nucleated RBC 0.00 Nucleated RBC % 0.0 Sodium 143 Potassium 2.8 L Chloride 105 Carbon Dioxide 22 Anion Gap 16.0 H BUN < 5 L Creatinine 0.8 Estimated GFR (MDRD) 84 L Glucose 104 H Calcium 8.8 Total Bilirubin 0.8 AST 62 H ALT 25 Alkaline Phosphatase 53 Total Protein 7.2 Albumin 4.2 Globulin 3.0 Albumin/Globulin Ratio 1.4 Lipase 55 H Serum HCG, Qual NEGATIVE Urine Color Urine Clarity Urine pH Ur Specific [place] Urine Protein Urine Glucose (UA) Urine Ketones Urine Occult Blood Urine Nitrite Urine Bilirubin Urine Urobilinogen Ur Leukocyte Esterase Urine RBC Urine WBC Ur Squamous Epith Cells Urine Bacteria Ur Microscopic Review 08/17/19 09:00 WBC RBC Hgb Hct MCV MCH MCHC RDW Plt Count MPV Neut # (Auto) Lymph # (Auto) [place] # (Auto) Eos # (Auto) Baso # (Auto) Absolute Nucleated RBC Nucleated RBC % Sodium Potassium Chloride Carbon Dioxide Anion Gap BUN Creatinine Estimated GFR (MDRD) Glucose Calcium Total Bilirubin AST ALT Alkaline Phosphatase Total Protein Albumin Globulin Albumin/Globulin Ratio Lipase Serum HCG, Qual Urine Color YELLOW Urine Clarity SL. CLOUDY Urine pH 6.0 Ur Specific [place] >=1.030 H Urine Protein TRACE Urine Glucose (UA) NEGATIVE Urine Ketones 15 H Urine Occult Blood LARGE H Urine Nitrite NEGATIVE Urine Bilirubin NEGATIVE Urine Urobilinogen 0.2 (NORMAL) Ur Leukocyte Esterase NEGATIVE Urine RBC 11-25 H Urine WBC 0-3 Ur Squamous Epith Cells MOD Squamous H Urine Bacteria Rare Ur Microscopic Review INDICATED PD MEDICAL DECISION MAKING - ED course ED course: On initial examination patient is nontoxic-appearing, she is having some dry heaving. IV was inserted, patient was given IV fluids, Zofran. Labs are drawn and are notable for a leukopenia and mild anemia which is stable at her baseline, consistent with alcohol use. Her CMP is notable for hypokalemia of 2.8 which may be secondary to vomiting and/or beer potomania, AST elevated mildly at 62, ALT is normal, consistent with alcohol use, lipase is mildly elevated at 55. Urinalysis shows 11-25 RBCs consistent with menstruation, no signs of infection. On repeat examination patient continues to have some discomfort, she was given famotidine, Toradol. I suggested potassium, patient declined this. At 9:30, I was notified by patient's nurse that patient had taken out her IV, disconnected herself from the monitor, and was feeling better and decided to go home. I spoke with the patient, who declines further intervention or testing, including repletion of her potassium. Her abdomen is benign and she is tolerating PO. She has capacity and is not clinically intoxicated. I recommend that she eat potassium rich foods and follow-up with her primary care provider soon as possible. I also discussed that she appears to have alcoholic gastritis, and she needs to stop drinking. I discussed return precautions. Patient agreed with this plan and was discharged Departure - Departure Disposition: [facility] Clinical Impression: Hypokalemia Gastritis Qualifiers: Gastritis type: alcoholic Chronicity: acute Gastritis bleeding: presence of bleeding unspecified Qualified Code(s): K29.20 - Alcoholic gastritis without bleeding Condition: Stable Instructions: Gastritis, Hypokalemia Dc Follow-Up: Your,PCP [Other] (For follow up on symptoms and drinking) Comments: You were seen today for nausea and vomiting. This appears to be due to your alc ohol use. It is also possible you have a gastroenteritis/stomach bug. Please avoid alcohol use, and Follow-up with your primary care provider. Return to emergency department if you have any worsening symptoms.
[2018-12-27] MEDS ORDERED: SODIUM CHLORIDE 0.9% 1,000 ML IV ONE (06:35)
[2018-12-27] MEDS ORDERED: ONDANSETRON 4 MG/2 ML VIAL IVP STA (06:35)
[2018-12-27 07:19] LABS: BASOPHILS % (AUTO) 0.6 %; EOSINOPHILS # (AUTO) 0.1 10^3/uL (0.0-0.7); EOSINOPHILS % (AUTO) 2.4 %; HGB - HEMOGLOBIN 11.2 g/dL (12.0-16.0); LYMPHOCYTES % (AUTO) 30.3 %; MEAN CORPUSCULAR HEMOGLOBIN 28.4 pg (27.0-31.0); MEAN CORPUSCULAR HGB CONC 33.4 g/dL (32.0-36.0); MEAN CORPUSCULAR VOLUME 84.8 fL (81.0-99.0); MEAN PLATELET VOLUME 9.5 fL (7.9-10.8); MONOCYTES # (AUTO) 0.2 10^3/uL (0.0-1.0); MONOCYTES % (AUTO) 6.3 %; NEUTROPHILS % (AUTO) 60.1 %; PLT - PLATELET COUNT 201 10^3/uL (130-450); RED BLOOD COUNT 3.95 10^6/uL (4.20-5.40); RED CELL DISTRIBUTION WIDTH 14.5 % (12.0-15.0); WHITE BLOOD COUNT 3.3 x10^3/uL (4.8-10.8)
[2018-12-27 07:21] LABS: HCG,QUALITATIVE BLOOD NEGATIVE
[2018-12-27 07:22] LABS: ALBUMIN 4.2 g/dL (3.2-5.5); ALBUMIN/GLOBULIN RATIO 1.4 (1.0-2.2); ALKALINE PHOSPHATASE 53 IU/L (42-121); ALT ALANINE AMINOTRANSFERASE 25 IU/L (10-60); AST ASPARTATE AMINOTRANSFERASE 62 IU/L (10-42); BILIRUBIN,TOTAL 0.8 mg/dL (0.2-1.0); BUN - BLOOD UREA NITROGEN < 5 mg/dL (6-20); CALCIUM 8.8 mg/dL (8.5-10.3); CARBON DIOXIDE - CO2 22 mmol/L (21-32); CHLORIDE 105 mmol/L (101-111); CREATININE 0.8 mg/dL (0.4-1.0); GFR - MDRD 84 (>89); GLUCOSE 104 mg/dL (70-100); LIPASE 55 U/L (22-51); SODIUM 143 mmol/L (135-145); TOTAL PROTEIN 7.2 g/dL (6.7-8.2)
[2018-12-27 08:19] VITALS: BP 130/108
[2018-12-27] MEDS ORDERED: FAMOTIDINE 20 MG/2 ML VIAL IVP STA (08:34)
[2018-12-27] MEDS ORDERED: KETOROLAC 15 MG/ML VIAL IVP STA (08:34)
[2018-12-27] MEDS ORDERED: METOCLOPRAMIDE 10 MG/2 ML VIAL IVP STA (08:35)
[2018-12-27 09:16] LABS: BILIRUBIN,URINE NEGATIVE (NEGATIVE); GLUCOSE, URINE (UA) NEGATIVE (NEGATIVE); KETONES,URINE (UA) 15 mg/dL (NEGATIVE); LEUKOCYTE ESTERASE, URINE NEGATIVE (NEGATIVE); NITRITE,URINE NEGATIVE (NEGATIVE); OCCULT BLOOD,URINE LARGE (NEGATIVE); PROTEIN,URINE TRACE mg/dL (NEGATIVE); UROBILINOGEN,URINE 0.2 (NORMAL) E.U./dL (NORMAL)
[2018-12-27 09:26] LABS: CLARITY,URINE SL. CLOUDY (CLEAR)
[2018-12-27 09:27] LABS: BACTERIA,URINE Rare /HPF (None Seen); SQUAMOUS EPITHELIAL CELL,UR MOD Squamous (<= Few)
== END 2018-12-27 09:52 | disposition home or self-care (01) ==
LOC: ED 06:03
DX: E87.6 Hypokalemia (principal); K29.20 Alcoholic gastritis without bleeding
CPT/HCPCS: 36415; 80053; 81001; 83690; 84703; 85025; 96361; 96374; 96375; 99284; 99285; J2765; 81003

== ENCOUNTER 2018-12-31 05:50 | Emergency (ER) | payer OTHER ==
--- NOTE | 2018-12-31 06:11 | ED Physician Documentation ---
PD HPI OVERDOSE - Stated complaint Stated Complaint: SI/OD TRAZADONE/ETOH - Chief complaint Chief Complaint: MHE - History obtained from History obtained from: Patient, Other (boyfriend) - History of Present Illness Timing - onset: Today, Other (unknown time) Subtance(s) ingested: EtOH (1 liter of vodka), Other (7 trazadone pills) Associated symptoms: Decreased responsiveness, Altered mental status Contributing factors: Depresssed, Suicidal, Alchoholic Severity Comments: moderate Treatment LOTUS NOTES ADMINISTRATOR: Other (none) Similar symptoms before: Other (was seen for alcohol abuse 2 days ago) Recently seen: Emergency Dept - Treatment prior to arrival Treatment prior to arrival: none Review of Systems Unable to obtain: Intoxicated PD PAST MEDICAL HISTORY - Past Medical History Past Medical History: Yes Cardiovascular: None Respiratory: None Neuro: Other Endocrine/Autoimmune: None GI: None 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: Ovarian cysts, Miscarriage(s) : None HEENT: None Psych: Depression, Other Musculoskeletal: None Derm: None - Past Surgical History Past Surgical History: Yes /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: Dilation and currettage - Present Medications Home Medications: Ambulatory Orders Medication Instructions Recorded Confirmed Pnv No.95/Ferrous Fum/Folic AC 1 each PO DAILY 09/15/18 09/25/18 [ Caplet] Promethazine [Phenergan] 25 mg PO Q6H PRN #10 tab 09/15/18 09/25/18 LORazepam [Ativan] 1 - 2 mg PO Q8H PRN #25 tablet 09/25/18 Promethazine [Phenergan] 25 mg PO Q6H PRN #20 tab 09/25/18 RX: Famotidine 20 mg PO DAILY #30 tablet 09/25/18 Potassium Chloride [K-Dur] 20 meq PO BIDWM #14 tablet 10/24/18 LORazepam [Ativan] 1 mg PO Q6HR PRN #12 tablet 11/22/18 Hyoscyamine Sulfate [Levsin-Sl] 0.125 mg SL Q6H PRN #10 tab.subl 11/30/18 Ondansetron Odt [Zofran] 4 mg TL Q6H PRN #10 tablet 11/30/18 - Allergies Allergies/Adverse Reactions: Allergies Allergy/AdvReac Type Severity Reaction Status Date / Time hydrocodone bitartrate * AdvReac Mild Nausea Verified 12/31/18 06:04 [From Lortab] - Social History Does the pt smoke?: No Smoking Status: Never smoker Does the pt drink ETOH?: Yes Does the pt have substance abuse?: No - Immunizations Immunizations are current?: Yes - POLST Patient has POLST: No PD ED PE NORMAL - Vitals Vital signs reviewed: Yes - HEENT HEENT: Atraumatic, Pharynx benign - Neck Neck: Supple, no meningeal sign, No JVD - Cardiac Cardiac: RRR, No murmur, No gallop, No rub - Respiratory Respiratory: No respiratory distress, Clear bilaterally - Abdomen Abdomen: Soft, Non tender, Non distended - Female Female : Deferred - Rectal Rectal: Deferred - Derm Derm: Normal color, Warm and dry, No rash - Extremities Extremities: No edema PD ED PE EXPANDED - GCS Eye Opening: To Pain Motor: Localizes to Pain Verbal: None Total: 8 - Psych Psych: Intoxicated / AOB, Poor eye contact, Non verbal Results - Vitals Vitals: Vital Signs - 24 hr 12/31/18 12/31/18 12/31/18 06:01 06:12 06:37 Temperature 36.4 C L Heart Rate 80 90 78 Respiratory 16 16 16 Rate Blood Pressure 99/56 L 108/78 O2 Saturation 100 100 98 Oxygen O2 Source Room air - EKG (time done) 6:02 Rate: Rate (enter#) (86) Rhythm: NSR [place]: Normal Intervals: Prolonged QT (qtc 494 ), QRS normal QRS: Normal Ischemia: Normal ST segments Computer interpretation: Agree with computer - Labs Labs: Laboratory Tests 12/31/18 12/31/18 12/31/18 06:15 06:15 06:15 WBC 3.4 L RBC 4.12 L Hgb 11.6 L Hct 34.6 L MCV 84.0 MCH 28.2 MCHC 33.5 RDW 13.8 Plt Count 184 MPV 10.0 Neut # (Auto) 1.6 Lymph # (Auto) 1.4 L [place] # (Auto) 0.3 Eos # (Auto) 0.0 Baso # (Auto) 0.1 Absolute Nucleated RBC 0.00 Nucleated RBC % 0.0 Sodium 140 Potassium 3.4 L Chloride 100 L Carbon Dioxide 23 Anion Gap 17.0 H BUN 8 Creatinine 0.8 Estimated GFR (MDRD) 84 L Glucose 90 Calcium 8.8 Magnesium Total Bilirubin 0.9 AST 60 H ALT 23 Alkaline Phosphatase 62 Total Protein 6.8 Albumin 4.2 Globulin 2.6 Albumin/Globulin Ratio 1.6 Lipase 58 H TSH 1.14 Salicylates < 6.0 Acetaminophen < 10 L Ethyl Alcohol 155.4 12/31/18 06:15 WBC RBC Hgb Hct MCV MCH MCHC RDW Plt Count MPV Neut # (Auto) Lymph # (Auto) [place] # (Auto) Eos # (Auto) Baso # (Auto) Absolute Nucleated RBC Nucleated RBC % Sodium Potassium Chloride Carbon Dioxide Anion Gap BUN Creatinine Estimated GFR (MDRD) Glucose Calcium Magnesium 2.3 Total Bilirubin AST ALT Alkaline Phosphatase Total Protein Albumin Globulin Albumin/Globulin Ratio Lipase TSH Salicylates Acetaminophen Ethyl Alcohol PD MEDICAL DECISION MAKING - ED course Complexity details: reviewed old records, considered differential ED course: ddx- toxic trazodone ingestion, arrhythmia, alcohol intoxication, polysubstance ingestion, suicidal attempt, suicidal ideation, depression, substance abuse 28 y/o F w/hx of prior suicidal attempts and alcohol abuse presented today brought in by her boyfriend for a reported suicide attempt after ingesting 7 trazodone and possibly a liter of vodka. Unclear what time. Pt arrived with GCS of 8, however has a gag reflex, do not feel she needs intubation at this time. her EKG shows mild QT prolongation thus will given magnesium IV. Labs in process. Poison control contacted. Poison control recommends monitoring for several hours. Pt requesting nausea, meds given prolonged qtc will give isopropyl alcohol swab for nausea. ETOH elevated and UDS pending. Labs otherwise stable. Will recheck ekg, and when medically cleared obtain psych eval. Pt's mental status here is improving pt now awake and alert.
[2018-12-31 06:22] LABS: BASOPHILS # (AUTO) 0.1 10^3/uL (0.0-0.1); BASOPHILS % (AUTO) 1.5 %; EOSINOPHILS % (AUTO) 1.2 %; HGB - HEMOGLOBIN 11.6 g/dL (12.0-16.0); LYMPHOCYTES # (AUTO) 1.4 10^3/uL (1.5-3.5); LYMPHOCYTES % (AUTO) 41.3 %; MEAN CORPUSCULAR HEMOGLOBIN 28.2 pg (27.0-31.0); MEAN CORPUSCULAR HGB CONC 33.5 g/dL (32.0-36.0); MONOCYTES # (AUTO) 0.3 10^3/uL (0.0-1.0); MONOCYTES % (AUTO) 8.5 %; NEUTROPHILS # (AUTO) 1.6 10^3/uL (1.5-6.6); NEUTROPHILS % (AUTO) 47.2 %; PLT - PLATELET COUNT 184 10^3/uL (130-450); RED BLOOD COUNT 4.12 10^6/uL (4.20-5.40); RED CELL DISTRIBUTION WIDTH 13.8 % (12.0-15.0); WHITE BLOOD COUNT 3.4 x10^3/uL (4.8-10.8)
[2018-12-31] MEDS ORDERED: MAGNESIUM SULFATE 2 GRAM 2 GM/50 ML BAG IV ONE (06:27)
[2018-12-31 06:35] LABS: ACETAMINOPHEN < 10 ug/mL (10-30); ALBUMIN 4.2 g/dL (3.2-5.5); ALBUMIN/GLOBULIN RATIO 1.6 (1.0-2.2); ALKALINE PHOSPHATASE 62 IU/L (42-121); ALT ALANINE AMINOTRANSFERASE 23 IU/L (10-60); AST ASPARTATE AMINOTRANSFERASE 60 IU/L (10-42); BILIRUBIN,TOTAL 0.9 mg/dL (0.2-1.0); BUN - BLOOD UREA NITROGEN 8 mg/dL (6-20); CALCIUM 8.8 mg/dL (8.5-10.3); CARBON DIOXIDE - CO2 23 mmol/L (21-32); CHLORIDE 100 mmol/L (101-111); CREATININE 0.8 mg/dL (0.4-1.0); GFR - MDRD 84 (>89); GLUCOSE 90 mg/dL (70-100); LIPASE 58 U/L (22-51); SALICYLATE < 6.0 mg/dL; SODIUM 140 mmol/L (135-145); TOTAL PROTEIN 6.8 g/dL (6.7-8.2)
[2018-12-31] MEDS ORDERED: SODIUM CHLORIDE 0.9% 1,000 ML IV ONE ×2 (06:49→16:28)
[2018-12-31] MEDS ORDERED: LORazepam 2 MG/ML VIAL IVP STA ×2 (09:31→15:57)
[2018-12-31 10:09] LABS: MUDS CUTOFF CONCENTRATIONS CUTOFF CONC BELOW:
[2018-12-31 10:13] LABS: BILIRUBIN,URINE NEGATIVE (NEGATIVE); GLUCOSE, URINE (UA) NEGATIVE (NEGATIVE); KETONES,URINE (UA) 15 mg/dL (NEGATIVE); LEUKOCYTE ESTERASE, URINE NEGATIVE (NEGATIVE); NITRITE,URINE NEGATIVE (NEGATIVE); OCCULT BLOOD,URINE MODERATE (NEGATIVE); PROTEIN,URINE NEGATIVE (NEGATIVE); UROBILINOGEN,URINE 0.2 (NORMAL) E.U./dL (NORMAL)
[2018-12-31 10:19] LABS: CLARITY,URINE SL. CLOUDY (CLEAR)
[2018-12-31 10:22] LABS: BACTERIA,URINE Rare /HPF (None Seen); MUCUS,URINE Moderate Strands; SQUAMOUS EPITHELIAL CELL,UR MANY Squamous (<= Few)
[2018-12-31 10:23] LABS: AMPHETAMINE SCREEN,URINE NEGATIVE (NEGATIVE); BENZODIAZEPINES SCREEN, URINE POSITIVE (NEGATIVE); COCAINE SCREEN URINE NEGATIVE (NEGATIVE); METHADONE SCREEN, URINE NEGATIVE (NEGATIVE); METHAMPHETAMINES SCREEN, URINE NEGATIVE (NEGATIVE); OPIATE SCREEN, URINE NEGATIVE (NEGATIVE); OXYCODONE SCREEN, URINE NEGATIVE (NEGATIVE); PROPOXYPHENE SCREEN, URINE NEGATIVE (NEGATIVE); TRICYCLIC ANTIDEPRESSANT,URINE NEGATIVE (NEGATIVE)
[2018-12-31] MEDS ORDERED: ONDANSETRON 4 MG/2 ML VIAL IVP STA (15:57)
[2018-12-31 19:26] LABS: HCG UR QUAL NEGATIVE
[2018-12-31] MEDS ORDERED: ONDANSETRON ODT 4 MG TABLET TL STA (22:03)
[2019-01-01] MEDS ORDERED: LORazepam 1 MG TABLET PO STA (03:48)
--- NOTE | 2019-01-01 03:48 | ED Physician Documentation ---
ED Addendum - Addendum Addendum: 01/01/19 03:[address] Lela Rivas. [facility]. COBRA forms filled out. This document was made in part using voice recognition software. While efforts are made to proofread this document, sound alike and grammatical errors may occur. Departure - Departure Disposition: 65 Psych Hosp/Unit DC/Xfer Clinical Impression: Suicidal ideation Drug overdose Qualifiers: Encounter type: initial encounter Injury intent: intentional self-harm Qualified Code(s): T50.902A - Poisoning by unspecified drugs, medicaments and biological substances, intentional self-harm, initial encounter Condition: Stable
[2019-01-01] MEDS ORDERED: ONDANSETRON ODT 4 MG TABLET TL STA (07:42)
[2019-01-01 09:37] VITALS: BP 114/82
== END 2019-01-01 12:02 ==
LOC: ED 05:50
DX: T43.212A Poisoning by selective serotonin and norepinephrine reuptake inhibitors, intentional self-harm, initial encounter (principal); F32.9 Major depressive disorder, single episode, unspecified; F10.229 Alcohol dependence with intoxication, unspecified; R40.2432 Glasgow coma scale score 3-8, at arrival to emergency department; I45.81 Long QT syndrome
CPT/HCPCS: 36415; 80320; 80329; 81001; 81025; 83690; 83735; 93005; 96365; 96375; 96376; 99285; J2060; J8499; Q0162; 80053; 80306; 80307; 81003; 84443; 85025; 87086

== ENCOUNTER 2019-01-22 16:24 | Emergency (ER) | payer OTHER ==
[2019-01-22] MEDS ORDERED: HYDROmorphone 1 MG/ML CARPUJECT IVP STA (16:41)
[2019-01-22] MEDS ORDERED: ONDANSETRON 4 MG/2 ML VIAL IVP STA ×2 (16:41→19:11)
--- NOTE | 2019-01-22 16:44 | ED Physician Documentation ---
PD HPI ABD PAIN - Stated complaint Stated Complaint: ADB PX, N/V BLOOD - Chief complaint Chief Complaint: Abd Pain - History obtained from History obtained from: Patient - History of Present Illness Timing - onset: Other (28-year-old woman presents with sudden onset severe pelvic pain bilaterally that started at 3 AM this morning. Its been waxing and waning and is severe again. Its associated with vomiting with blood-tinged. No changes in bowel movements. Her menses is current, but light and late. She was seen earlier in the day at [facility], per her description ultrasound was done was negative. No specific diagnosis was given. Pain is now severe again. She has no history of abdominal surgeries) Review of Systems Ten Systems: 10 systems reviewed and negative Constitutional: denies: Fever, Chills Respiratory: denies: Dyspnea, Cough GI: reports: Abdominal Pain, Nausea, Vomiting. 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: Dilation and currettage - Present Medications Home Medications: Ambulatory Orders Medication Instructions Recorded Confirmed Pnv No.95/Ferrous Fum/Folic AC 1 each PO DAILY 09/15/18 09/25/18 [ Caplet] Promethazine [Phenergan] 25 mg PO Q6H PRN #10 tab 09/15/18 09/25/18 Famotidine 20 mg PO DAILY #30 tablet 09/25/18 LORazepam [Ativan] 1 - 2 mg PO Q8H PRN #25 tablet 09/25/18 Promethazine [Phenergan] 25 mg PO Q6H PRN #20 tab 09/25/18 Potassium Chloride [K-Dur] 20 meq PO BIDWM #14 tablet 10/24/18 LORazepam [Ativan] 1 mg PO Q6HR PRN #12 tablet 11/22/18 Hyoscyamine Sulfate [Levsin-Sl] 0.125 mg SL Q6H PRN #10 tab.subl 11/30/18 Ondansetron Odt [Zofran] 4 mg TL Q6H PRN #10 tablet 11/30/18 Lorazepam [Ativan] 1 mg PO TID PRN #7 tablet 01/22/19 Ondansetron Odt [Zofran] 4 mg TL Q6H PRN #10 tablet 01/22/19 - Allergies Allergies/Adverse Reactions: Allergies Allergy/AdvReac Type Severity Reaction Status Date / Time hydrocodone bitartrate * AdvReac Mild Nausea Verified 12/31/18 06:04 [From Lortab] - Social History Does the pt smoke?: No Smoking Status: Never smoker Does the pt drink ETOH?: Yes Does the pt have substance abuse?: No - Immunizations Immunizations are current?: Yes - POLST Patient has POLST: No PD ED PE NORMAL - Vitals Vital signs reviewed: Yes - General General: 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, Other (She is shaky and writhing in pain she appears uncomfortable) - HEENT HEENT: PERRL, EOMI - Neck Neck: Supple, no meningeal sign, No bony TTP - Cardiac Cardiac: RRR, No murmur - Respiratory Respiratory: No respiratory distress, Clear bilaterally - Abdomen Abdomen: Soft, Other (Severe lower abdominal tenderness that does not lateralize.) - Back Back: No CVA TTP, No spinal TTP - Derm Derm: Normal color, Warm and dry - Extremities Extremities: No edema, No calf tenderness / cord - Neuro Neuro: 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, Normal speech Results - Vitals Vitals: Vital Signs - 24 hr 01/22/19 01/22/19 01/22/19 16:33 19:50 21:36 Temperature 36.5 C Heart Rate 92 84 87 Respiratory 18 12 12 Rate Blood Pressure 96/60 101/84 H 105/82 H O2 Saturation 100 100 98 Oxygen O2 Source Room air - Labs Labs: Laboratory Tests 01/22/19 01/22/19 01/22/19 17:14 17:14 17:14 WBC 6.1 RBC 4.02 L Hgb 11.6 L Hct 33.3 L MCV 82.8 MCH 28.9 MCHC 34.8 RDW 14.2 Plt Count 288 MPV 10.7 Neut # (Auto) 4.7 Lymph # (Auto) 0.9 L [place] # (Auto) 0.4 Eos # (Auto) 0.0 Baso # (Auto) 0.1 Absolute Nucleated RBC 0.00 Nucleated RBC % 0.0 Sodium 139 Potassium 3.4 L Chloride 107 Carbon Dioxide 21 Anion Gap 11.0 BUN 6 Creatinine 0.8 Estimated GFR (MDRD) 84 L Glucose 108 H Calcium 9.4 Total Bilirubin 1.1 H AST 42 ALT 18 Alkaline Phosphatase 56 Total Protein 6.9 Albumin 4.1 Globulin 2.8 Albumin/Globulin Ratio 1.5 Lipase 41 Serum HCG, Qual NEGATIVE Urine Color Urine Clarity Urine pH Ur Specific [place] Urine Protein Urine Glucose (UA) Urine Ketones Urine Occult Blood Urine Nitrite Urine Bilirubin Urine Urobilinogen Ur Leukocyte Esterase Urine RBC Urine WBC Ur Squamous Epith Cells Urine Bacteria Ur Microscopic Review Urine Culture Comments Urine Opiates Screen Ur Oxycodone Screen Urine Methadone Screen Ur Propoxyphene Screen Ur Barbiturates Screen Ur Tricyclics Screen Ur Phencyclidine Scrn Ur Amphetamine Screen U Methamphetamines Scrn U Benzodiazepines Scrn Urine Cocaine Screen U Cannabinoids Screen Ethyl Alcohol < 5.0 01/22/19 18:20 WBC RBC Hgb Hct MCV MCH MCHC RDW Plt Count MPV Neut # (Auto) Lymph # (Auto) [place] # (Auto) Eos # (Auto) Baso # (Auto) Absolute Nucleated RBC Nucleated RBC % Sodium Potassium Chloride Carbon Dioxide Anion Gap BUN Creatinine Estimated GFR (MDRD) Glucose Calcium Total Bilirubin AST ALT Alkaline Phosphatase Total Protein Albumin Globulin Albumin/Globulin Ratio Lipase Serum HCG, Qual Urine Color LT RED Urine Clarity BLOODY Urine pH 8.5 H Ur Specific [place] 1.010 Urine Protein TRACE Urine Glucose (UA) NEGATIVE Urine Ketones 15 H Urine Occult Blood LARGE H Urine Nitrite NEGATIVE Urine Bilirubin NEGATIVE Urine Urobilinogen 1 (NORMAL) Ur Leukocyte Esterase NEGATIVE Urine RBC TNTC H Urine WBC 0-3 Ur Squamous Epith Cells RARE Squamous Urine Bacteria None Seen Ur Microscopic Review INDICATED Urine Culture Comments NOT INDICATED Urine Opiates Screen POSITIVE H Ur Oxycodone Screen NEGATIVE Urine Methadone Screen NEGATIVE Ur Propoxyphene Screen NEGATIVE Ur Barbiturates Screen NEGATIVE Ur Tricyclics Screen NEGATIVE Ur Phencyclidine Scrn NEGATIVE Ur Amphetamine Screen NEGATIVE U Methamphetamines Scrn POSITIVE H U Benzodiazepines Scrn POSITIVE H Urine Cocaine Screen NEGATIVE U Cannabinoids Screen NEGATIVE Ethyl Alcohol - Rads (name of study) CT A/P Radiology: EMP read contemporaneously (Small collapsing left ovarian dominant follicle and a fatty liver.) Procedures - General procedure General procedure: She was difficult for IV access, multiple nurses had tried and failed and asked me to evaluate for IV access. I personally placed a long 22-gauge IV in the right deep brachial vein using real-time ultrasound guidance after ChloraPrep that flushed and zi well this was done at 5:15 PM. PD MEDICAL DECISION MAKING - ED course Complexity details: reviewed old records (Records received from [facility] visit earlier in the dayShe had an ultrasound showing a hypoechoic focus in the right ovary potentially consistent with a involuting cyst. She had a white count of 4.2. Her urinalysis was notable for blood. test was negative. CMP was grossly negative except for a potassium of 3.3 and an AST of 53.) ED course: This is a 28-year-old woman who presents with severe lower abdominal pain, she was seen earlier in the day at [facility] with a work-up showing potential collapsing ovarian cyst which is also present, albeit on the contralateral side on today's imaging. After pain medications, she was pain-free. But still feeling very weak and nauseous. I discussed her lab work with her. She has not been using methamphetamines, feels this is spurious but after some discussion admits to an problem with alcohol. Her last drink was 2 days ago. She is at home alone, her is deployed, they have a 5-month-old who is currently staying with family in [place], so that she can "get her shit together." We are able to treat her nausea and she passed a p.o. challenge. She requested admission for alcohol detoxification. She was put on the line with [facility]. Subsequent to that she called [facility], they did not have an intake nurse, so she could not go there. She felt like she could go home now. Departure - Departure Disposition: 01 Home, Self Care Clinical Impression: Abdominal pain in female patient, Alcohol abuse Condition: Good Record reviewed to determine appropriate education?: Yes Instructions: ED Cyst Ovarian Prescriptions: Lorazepam [Ativan] 1 mg PO TID PRN #7 tablet PRN Reason: Anxiety Ondansetron Odt [Zofran] 4 mg TL Q6H PRN #10 tablet PRN Reason: Nausea / Vomiting Comments: Drink plenty of fluids, follow-up with your doctor tomorrow, return for new or worsening symptoms.
[2019-01-22] MEDS ORDERED: IOVERSOL 320 100 ML VIAL IVP ONE ×2 (16:58→18:24)
[2019-01-22 17:18] LABS: BASOPHILS # (AUTO) 0.1 10^3/uL (0.0-0.1); BASOPHILS % (AUTO) 1.5 %; EOSINOPHILS % (AUTO) 0.2 %; HGB - HEMOGLOBIN 11.6 g/dL (12.0-16.0); LYMPHOCYTES # (AUTO) 0.9 10^3/uL (1.5-3.5); LYMPHOCYTES % (AUTO) 14.2 %; MEAN CORPUSCULAR HEMOGLOBIN 28.9 pg (27.0-31.0); MEAN CORPUSCULAR HGB CONC 34.8 g/dL (32.0-36.0); MEAN CORPUSCULAR VOLUME 82.8 fL (81.0-99.0); MEAN PLATELET VOLUME 10.7 fL (7.9-10.8); MONOCYTES # (AUTO) 0.4 10^3/uL (0.0-1.0); MONOCYTES % (AUTO) 7.2 %; NEUTROPHILS # (AUTO) 4.7 10^3/uL (1.5-6.6); NEUTROPHILS % (AUTO) 76.4 %; PLT - PLATELET COUNT 288 10^3/uL (130-450); RED BLOOD COUNT 4.02 10^6/uL (4.20-5.40); RED CELL DISTRIBUTION WIDTH 14.2 % (12.0-15.0); WHITE BLOOD COUNT 6.1 x10^3/uL (4.8-10.8)
[2019-01-22 17:41] LABS: ALBUMIN 4.1 g/dL (3.2-5.5); ALBUMIN/GLOBULIN RATIO 1.5 (1.0-2.2); ALKALINE PHOSPHATASE 56 IU/L (42-121); ALT ALANINE AMINOTRANSFERASE 18 IU/L (10-60); AST ASPARTATE AMINOTRANSFERASE 42 IU/L (10-42); BILIRUBIN,TOTAL 1.1 mg/dL (0.2-1.0); BUN - BLOOD UREA NITROGEN 6 mg/dL (6-20); CALCIUM 9.4 mg/dL (8.5-10.3); CARBON DIOXIDE - CO2 21 mmol/L (21-32); CHLORIDE 107 mmol/L (101-111); CREATININE 0.8 mg/dL (0.4-1.0); GFR - MDRD 84 (>89); GLUCOSE 108 mg/dL (70-100); LIPASE 41 U/L (22-51); SODIUM 139 mmol/L (135-145); TOTAL PROTEIN 6.9 g/dL (6.7-8.2)
[2019-01-22 17:43] LABS: HCG,QUALITATIVE BLOOD NEGATIVE
[2019-01-22 18:26] LABS: MUDS CUTOFF CONCENTRATIONS CUTOFF CONC BELOW:
[2019-01-22] MEDS ORDERED: METOCLOPRAMIDE 10 MG/2 ML VIAL IVP STA (18:28)
[2019-01-22 18:38] LABS: GLUCOSE, URINE (UA) NEGATIVE (NEGATIVE); KETONES,URINE (UA) 15 mg/dL (NEGATIVE); LEUKOCYTE ESTERASE, URINE NEGATIVE (NEGATIVE); NITRITE,URINE NEGATIVE (NEGATIVE); OCCULT BLOOD,URINE LARGE (NEGATIVE); PH,URINE 8.5 PH (5.0-7.5); PROTEIN,URINE TRACE mg/dL (NEGATIVE); UROBILINOGEN,URINE 1 (NORMAL) E.U./dL (NORMAL)
--- NOTE | 2019-01-22 18:53 | CT Report ---
Reason: IV only, low abd pain Procedure Date: 01/22/2019 Accession Number: [id number] / [id number] Procedure: CT - Abdomen/Pelvis W CPT Code: FULL RESULT: EXAM: CT ABDOMEN AND PELVIS EXAM DATE: 01/22/2019 05:59 PM. CLINICAL HISTORY: IV only, low abd pain. COMPARISONS: ABDOMEN/PELVIS W/ 09/18/2017 1:34 PM. TECHNIQUE: Routine helical CT imaging was performed through the abdomen and pelvis. IV contrast: OPTI 320 100ML. Enteric contrast: No. Reconstructions: Coronal and sagittal. In accordance with CT protocol optimization, one or more of the following dose reduction techniques were utilized for this exam: automated exposure control, adjustment of mA and/or KV based on patient size, or use of iterative reconstructive technique. FINDINGS: Lung Bases: Unremarkable. Liver: Hypoattenuated liver parenchyma. Otherwise unremarkable. Gallbladder/Bile Ducts: Unremarkable. Spleen: Normal. Pancreas: Normal. Adrenal Glands: Normal. Kidneys: Normal. No masses or hydronephrosis. Peritoneal Cavity/Bowel: Normal. No free fluid, free air or adenopathy. No masses or acute inflammatory process. The appendix is well visualized and normal. Pelvic Organs: Unremarkable urinary bladder and uterus. Small collapsing dominant follicle in the left ovary measuring about 15 mm. Vasculature: No aneurysms or other significant abnormality. Bones: No significant abnormality. Other: None. IMPRESSION: 1. Small collapsing dominant left ovarian follicle. 2. Fatty liver. RADIA
[2019-01-22 18:56] LABS: BILIRUBIN,URINE NEGATIVE (NEGATIVE); CLARITY,URINE BLOODY (CLEAR); ICTOTEST,URINE NEGATIVE
[2019-01-22] MEDS ORDERED: SODIUM CHLORIDE 0.9% 1,000 ML IV ONE (18:56)
[2019-01-22 18:57] LABS: AMPHETAMINE SCREEN,URINE NEGATIVE (NEGATIVE); BACTERIA,URINE None Seen /HPF (None Seen); BENZODIAZEPINES SCREEN, URINE POSITIVE (NEGATIVE); COCAINE SCREEN URINE NEGATIVE (NEGATIVE); METHADONE SCREEN, URINE NEGATIVE (NEGATIVE); METHAMPHETAMINES SCREEN, URINE POSITIVE (NEGATIVE); OPIATE SCREEN, URINE POSITIVE (NEGATIVE); OXYCODONE SCREEN, URINE NEGATIVE (NEGATIVE); PROPOXYPHENE SCREEN, URINE NEGATIVE (NEGATIVE); RBC,URINE TNTC /HPF (0-5); SQUAMOUS EPITHELIAL CELL,UR RARE Squamous (<= Few); TRICYCLIC ANTIDEPRESSANT,URINE NEGATIVE (NEGATIVE)
[2019-01-22] MEDS ORDERED: MAGNESIUM SULFATE 2 GRAM 2 GM/50 ML BAG IV ONE (19:11)
[2019-01-22] MEDS ORDERED: LORazepam 2 MG/ML VIAL IVP STA (19:11)
[2019-01-22] MEDS ORDERED: THIAMINE INJ 100 MG in SODIUM CHLORIDE 0.9% 50 ML IV STA (19:11)
[2019-01-22] MEDS ORDERED: PROMETHAZINE INJ 25 MG in SODIUM CHLORIDE 0.9% 50 ML IV STA (20:08)
[2019-01-22] MEDS ORDERED: ONDANSETRON ODT 4 MG Prepack 2 TL STA (22:03)
[2019-01-22] MEDS ORDERED: LORazepam 1 MG TABLET PO STA (22:03)
[2019-01-22 22:39] VITALS: BP 110/78
== END 2019-01-22 22:40 | disposition home or self-care (01) ==
LOC: ED 16:24
DX: R10.30 Lower abdominal pain, unspecified (principal); R11.2 Nausea with vomiting, unspecified; F10.10 Alcohol abuse, uncomplicated
CPT/HCPCS: 36415; 74177; 80053; 80320; 81001; 83690; 84703; 85025; 96365; 96367; 96375; 99284; 99285; J1170; J2060; J2765; J3411; J7040; J8499; Q9967; 80306; 81003; 87086

== ENCOUNTER 2019-03-11 07:18 | Emergency (ER) | payer OTHER ==
[2019-03-11] MEDS ORDERED: FOLIC ACID INJ 1 MG, THIAMINE INJ 100 MG, MAGNESIUM SULFATE 2 GM, MULTIVITAMIN 10 ML in... IV STA ×5 (07:43)
[2019-03-11] MEDS ORDERED: LORazepam 2 MG/ML VIAL IVP STA (07:44)
[2019-03-11 08:44] LABS: MUDS CUTOFF CONCENTRATIONS CUTOFF CONC BELOW:
[2019-03-11 08:48] LABS: BILIRUBIN,URINE NEGATIVE (NEGATIVE); GLUCOSE, URINE (UA) NEGATIVE (NEGATIVE); KETONES,URINE (UA) TRACE mg/dL (NEGATIVE); LEUKOCYTE ESTERASE, URINE NEGATIVE (NEGATIVE); NITRITE,URINE NEGATIVE (NEGATIVE); OCCULT BLOOD,URINE NEGATIVE (NEGATIVE); PH,URINE 5.5 PH (5.0-7.5); PROTEIN,URINE NEGATIVE (NEGATIVE); UROBILINOGEN,URINE 0.2 (NORMAL) E.U./dL (NORMAL)
[2019-03-11 08:49] LABS: BASOPHILS % (AUTO) 0.3 %; EOSINOPHILS % (AUTO) 0.1 %; HGB - HEMOGLOBIN 10.7 g/dL (12.0-16.0); LYMPHOCYTES # (AUTO) 1.2 10^3/uL (1.5-3.5); LYMPHOCYTES % (AUTO) 11.7 %; MEAN CORPUSCULAR HGB CONC 33.1 g/dL (32.0-36.0); MEAN CORPUSCULAR VOLUME 84.6 fL (81.0-99.0); MEAN PLATELET VOLUME 10.4 fL (7.9-10.8); MONOCYTES # (AUTO) 0.4 10^3/uL (0.0-1.0); MONOCYTES % (AUTO) 4.2 %; NEUTROPHILS # (AUTO) 8.8 10^3/uL (1.5-6.6); NEUTROPHILS % (AUTO) 83.2 %; PLT - PLATELET COUNT 246 10^3/uL (130-450); RED BLOOD COUNT 3.82 10^6/uL (4.20-5.40); WHITE BLOOD COUNT 10.5 x10^3/uL (4.8-10.8)
[2019-03-11 08:50] LABS: CLARITY,URINE SL. CLOUDY (CLEAR); HCG UR QUAL NEGATIVE
[2019-03-11 08:56] LABS: AMPHETAMINE SCREEN,URINE NEGATIVE (NEGATIVE); BENZODIAZEPINES SCREEN, URINE NEGATIVE (NEGATIVE); COCAINE SCREEN URINE NEGATIVE (NEGATIVE); METHADONE SCREEN, URINE NEGATIVE (NEGATIVE); METHAMPHETAMINES SCREEN, URINE NEGATIVE (NEGATIVE); OPIATE SCREEN, URINE NEGATIVE (NEGATIVE); OXYCODONE SCREEN, URINE NEGATIVE (NEGATIVE); PROPOXYPHENE SCREEN, URINE NEGATIVE (NEGATIVE); TRICYCLIC ANTIDEPRESSANT,URINE NEGATIVE (NEGATIVE)
[2019-03-11 08:57] LABS: ALBUMIN 3.9 g/dL (3.2-5.5); ALBUMIN/GLOBULIN RATIO 1.4 (1.0-2.2); BILIRUBIN,TOTAL 1.2 mg/dL (0.2-1.0); CALCIUM 9.1 mg/dL (8.5-10.3); CREATININE 0.7 mg/dL (0.4-1.0); TOTAL PROTEIN 6.7 g/dL (6.7-8.2)
[2019-03-11 08:58] LABS: BACTERIA,URINE Moderate /HPF (None Seen); MUCUS,URINE Moderate Strands; RBC,URINE None Seen /HPF (0-5); SQUAMOUS EPITHELIAL CELL,UR MANY Squamous (<= Few)
[2019-03-11] MEDS ORDERED: DEXAMETHASONE 10 MG/ML VIAL IVP STA (09:07)
--- NOTE | 2019-03-11 09:08 | ED Physician Documentation ---
PD HPI NVD - Stated complaint Stated Complaint: ABD PX/VOMITING - Chief complaint Chief Complaint: Abd Pain - History obtained from History obtained from: Patient - History of Present Illness Timing - onset: Last night Timing - duration: Hours Timing - details: Abrupt onset, Still present Associated symptoms: Abdominal pain Contributing factors: Alcohol use Improved by: Vomiting, Meds Similar symptoms before: Diagnosis (alcoholic gastritis) Recently seen: Admitted - Additonal information Additional information: 28-year-old female with a history of alcohol abuse has been drinking the past 3 nights quite heavily at [employer] a day and is at about 3:00 the morning she began to develop nausea vomiting and abdominal pain she is come to the emergency department this morning with abdominal pain and shakiness. She feels that she has had similar symptoms previously when she stops drinking. She also states that she is been through treatment and had 28 sober days and she has had 3 days of drinking. Review of Systems Constitutional: denies: Fever Eyes: denies: Decreased vision Ears: denies: Ear pain Nose: reports: Congestion Throat: denies: Sore throat Respiratory: denies: Cough GI: reports: Abdominal Pain, Nausea, Vomiting : denies: Dysuria, Frequency Neurologic: reports: Generalized weakness. 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: Ovarian cysts, Miscarriage(s) : None HEENT: None Psych: Depression, Other Musculoskeletal: None Derm: None - Past Surgical History Past Surgical History: Yes /DEPUTY CHIEF COUNSEL: Dilation and currettage - Present Medications Home Medications: Ambulatory Orders Medication Instructions Recorded Confirmed Pnv No.95/Ferrous Fum/Folic AC 1 each PO DAILY 09/15/18 09/25/18 [ [place]] Promethazine [Phenergan] 25 mg PO Q6H PRN #10 tab 09/15/18 09/25/18 Famotidine 20 mg PO DAILY #30 tablet 09/25/18 LORazepam [Ativan] 1 - 2 mg PO Q8H PRN #25 tablet 09/25/18 Promethazine [Phenergan] 25 mg PO Q6H PRN #20 tab 09/25/18 Potassium Chloride [K-Dur] 20 meq PO BIDWM #14 tablet 10/24/18 LORazepam [Ativan] 1 mg PO Q6HR PRN #12 tablet 11/22/18 Hyoscyamine Sulfate [Levsin-Sl] 0.125 mg SL Q6H PRN #10 tab.subl 11/30/18 Ondansetron Odt [Zofran] 4 mg TL Q6H PRN #10 tablet 11/30/18 Lorazepam [Ativan] 1 mg PO TID PRN #7 tablet 01/22/19 Ondansetron Odt [Zofran] 4 mg TL Q6H PRN #10 tablet 01/22/19 Ondansetron Odt [Zofran] 4 mg TL Q6H PRN #10 tablet 03/11/19 - Allergies Allergies/Adverse Reactions: Allergies Allergy/AdvReac Type Severity Reaction Status Date / Time hydrocodone bitartrate * AdvReac Mild Nausea Verified 03/11/19 07:29 [From Lortab] - Social History Does the pt smoke?: No Smoking Status: Never smoker Does the pt drink ETOH?: Yes Does the pt have substance abuse?: No - Immunizations Immunizations are current?: Yes - POLST Patient has POLST: No PD ED PE NORMAL - Vitals Vital signs reviewed: Yes (tachy ) - General General: 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, Well developed/nourished, Other (wretching and appears dehydrated, shaky and red) - HEENT HEENT: Atraumatic, PERRL, EOMI, Other (dry mucous membranes) - Neck Neck: Supple, no meningeal sign, No bony TTP - Cardiac Cardiac: RRR, No murmur - Respiratory Respiratory: No respiratory distress, Clear bilaterally - Abdomen Abdomen: Soft, Other (mild suprapubic tenderness) - Back Back: No CVA TTP, No spinal TTP - Derm Derm: Normal color, Warm and dry, No rash - Extremities Extremities: No deformity, No edema - Neuro Neuro: 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, 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, No motor deficit, No sensory deficit, Normal speech Eye Opening: Spontaneous Motor: Obeys Commands Verbal: Oriented GCS Score: 15 - Psych Psych: Normal mood, Normal affect Results - Vitals Vitals: Vital Signs - 24 hr 03/11/19 03/11/19 03/11/19 07:25 09:52 11:00 Temperature 36.6 C 37.3 C Heart Rate 103 H 93 100 Respiratory 20 18 18 Rate Blood Pressure 108/73 100/65 101/54 L O2 Saturation 100 100 100 03/11/19 13:00 Temperature Heart Rate 100 Respiratory 18 Rate Blood Pressure 106/59 L O2 Saturation 99 Oxygen O2 Source Room air - Labs Labs: Laboratory Tests 03/11/19 03/11/19 03/11/19 08:30 08:30 08:41 WBC 10.5 RBC 3.82 L Hgb 10.7 L Hct 32.3 L MCV 84.6 MCH 28.0 MCHC 33.1 RDW 14.0 Plt Count 246 MPV 10.4 Neut # (Auto) 8.8 H Lymph # (Auto) 1.2 L [place] # (Auto) 0.4 Eos # (Auto) 0.0 Baso # (Auto) 0.0 Absolute Nucleated RBC 0.00 Nucleated RBC % 0.0 Sodium Potassium Chloride Carbon Dioxide Anion Gap BUN Creatinine Estimated GFR (MDRD) Glucose Lactic Acid Calcium Total Bilirubin AST ALT Alkaline Phosphatase Total Protein Albumin Globulin Albumin/Globulin Ratio Lipase Urine Color YELLOW Urine Clarity SL. CLOUDY Urine pH 5.5 Ur Specific [place] 1.025 Urine Protein NEGATIVE Urine Glucose (UA) NEGATIVE Urine Ketones TRACE Urine Occult Blood NEGATIVE Urine Nitrite NEGATIVE Urine Bilirubin NEGATIVE Urine Urobilinogen 0.2 (NORMAL) Ur Leukocyte Esterase NEGATIVE Urine RBC None Seen Urine WBC 0-3 Ur Squamous Epith Cells MANY Squamous H Urine Bacteria Moderate H Urine Mucus Moderate Strands Ur Microscopic Review INDICATED Urine Culture Comments NOT INDICATED Urine HCG, Qual NEGATIVE Urine Opiates Screen NEGATIVE Ur Oxycodone Screen NEGATIVE Urine Methadone Screen NEGATIVE Ur Propoxyphene Screen NEGATIVE Ur Barbiturates Screen NEGATIVE Ur Tricyclics Screen NEGATIVE Ur Phencyclidine Scrn NEGATIVE Ur Amphetamine Screen NEGATIVE U Methamphetamines Scrn NEGATIVE U Benzodiazepines Scrn NEGATIVE Urine Cocaine Screen NEGATIVE U Cannabinoids Screen NEGATIVE Ethyl Alcohol 03/11/19 03/11/19 03/11/19 08:41 08:41 11:33 WBC RBC Hgb Hct MCV MCH MCHC RDW Plt Count MPV Neut # (Auto) Lymph # (Auto) [place] # (Auto) Eos # (Auto) Baso # (Auto) Absolute Nucleated RBC Nucleated RBC % Sodium 139 Potassium 3.1 L Chloride 102 Carbon Dioxide 23 Anion Gap 14.0 H BUN 8 Creatinine 0.7 Estimated GFR (MDRD) 98 Glucose 112 H Lactic Acid 3.7 H* 1.1 Calcium 9.1 Total Bilirubin 1.2 H AST 66 H ALT 29 Alkaline Phosphatase 58 Total Protein 6.7 Albumin 3.9 Globulin 2.8 Albumin/Globulin Ratio 1.4 Lipase 44 Urine Color Urine Clarity Urine pH Ur Specific [place] Urine Protein Urine Glucose (UA) Urine Ketones Urine Occult Blood Urine Nitrite Urine Bilirubin Urine Urobilinogen Ur Leukocyte Esterase Urine RBC Urine WBC Ur Squamous Epith Cells Urine Bacteria Urine Mucus Ur Microscopic Review Urine Culture Comments Urine HCG, Qual Urine Opiates Screen Ur Oxycodone Screen Urine Methadone Screen Ur Propoxyphene Screen Ur Barbiturates Screen Ur Tricyclics Screen Ur Phencyclidine Scrn Ur Amphetamine Screen U Methamphetamines Scrn U Benzodiazepines Scrn Urine Cocaine Screen U Cannabinoids Screen Ethyl Alcohol 27.9 Procedures - IVC sono (time) 0745 Bedside IVC sono: IVC measures (cm) (1.02), IVC collapsed c insp (cm) (complete), Dehydration (est 1-2 liter deficit) PD MEDICAL DECISION MAKING - ED course Complexity details: reviewed results, re-evaluated patient, considered differential, d/w patient ED course: 28-year-old female appears in the early stages of alcohol withdrawal after drinking the fifth a day for 3 days she should have a very short-lived withdrawal syndrome she is administered Ativan here in the emergency department with a banana bag and given a second liter of saline. She is marked improvement and is discharged. Departure - Departure Disposition: 01 Home, Self Care Clinical Impression: Dehydration Alcoholic gastritis Qualifiers: Chronicity: acute Gastritis bleeding: without bleeding Qualified Code(s): K29.20 - Alcoholic gastritis without bleeding Condition: Stable Instructions: ED PUD Vs Gastritis Follow-Up: [facility] [Provider Group] Prescriptions: Ondansetron Odt [Zofran] 4 mg TL Q6H PRN #10 tablet PRN Reason: Nausea / Vomiting Discharge Date/Time: 03/11/19 13:59
[2019-03-11] MEDS ORDERED: ONDANSETRON 4 MG/2 ML VIAL IVP STA (09:19)
[2019-03-11] MEDS ORDERED: KETOROLAC 30 MG/ML VIAL IVP STA (09:21)
[2019-03-11] MEDS ORDERED: SODIUM CHLORIDE 0.9% 1,000 ML IV ONE (10:05)
[2019-03-11] MEDS ORDERED: POTASSIUM CHLORIDE 20 MEQ TABLET PO STA (10:35)
[2019-03-11 13:58] VITALS: BP 106/59
== END 2019-03-11 13:59 | disposition home or self-care (01) ==
LOC: ED 07:18
DX: K29.20 Alcoholic gastritis without bleeding (principal); E86.0 Dehydration; F10.239 Alcohol dependence with withdrawal, unspecified
CPT/HCPCS: 36415; 80053; 80320; 81001; 81025; 83605; 83690; 85025; 87040; 96361; 96365; 96375; 99284; A9270; J2060; J3411; 80306; 81003; 87086

== ENCOUNTER 2019-03-18 08:17 | Emergency (ER) | payer OTHER ==
--- NOTE | 2019-03-18 08:48 | ED Physician Documentation ---
History of Present Illness - Stated complaint Stated Complaint: VOMITING/ABD PX - Chief complaint Chief Complaint: Abd Pain - Additonal information Additional information: This is a 28-year-old female with history of alcohol abuse, who presents with abdominal pain. Patient states that she intermittently gets some lower abdominal discomfort which will come on every several weeks. She has had work- ups including imaging and been told that she has some ovarian cysts but they are not sure what causes her pain. Currently her pain is moderate to severe, began at 4 AM when she woke up in the absence of any known triggers. She has had some nausea as well. No diarrhea, no bloody bowel movements. Separate from this she has had a fine, non-itchy and nonpainful macular rash over her entire body for weeks. She did not even mention this initially until I asked about it while examining her. She takes trazodone, denies any changes to her medications recently. She denies any oral lesions. No lesions on her palms or soles. She has no abnormal vaginal discharge, no concern for sexual transmitted infection. 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: Ovarian cysts, Miscarriage(s) : None HEENT: None Psych: Depression, Other Musculoskeletal: None Derm: None - Past Surgical History Past Surgical History: Yes /UNIT CONTROL WORKER: Dilation and currettage - Present Medications Home Medications: Ambulatory Orders Medication Instructions Recorded Confirmed traZODone [Desyrel] 0 mg DAILY 03/18/19 03/18/19 - Allergies Allergies/Adverse Reactions: Allergies Allergy/AdvReac Type Severity Reaction Status Date / Time hydrocodone bitartrate * AdvReac Mild Nausea Verified 03/18/19 08:34 [From Lortab] - Social History Does the pt smoke?: No Smoking Status: Never smoker Does the pt drink ETOH?: Yes Does the pt have substance abuse?: No - Immunizations Immunizations are current?: Yes - POLST Patient has POLST: No PD ED PE NORMAL - Vitals Vital signs reviewed: Yes - General General: 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 - HEENT HEENT: Atraumatic - Neck Neck: Supple, no meningeal sign - Cardiac Cardiac: RRR, No murmur, No gallop - Respiratory Respiratory: No respiratory distress, Clear bilaterally - Abdomen Abdomen: Other (Abdomen is soft and nondistended, there is mild tenderness palpation in the central abdomen, no upper abdomen discomfort) - Derm Derm: Other (There is a fine papular rash which is blanchable and erythematous which is scattered over her extremities thorax, and back. There are no pustules, no involvement of the palms or soles, no involvement of the mouth) - Extremities Extremities: No deformity Results - Vitals Vitals: Vital Signs - 24 hr 03/18/19 03/18/19 03/18/19 08:26 11:35 12:06 Temperature 37 C 36.9 C 37.2 C Heart Rate 81 94 71 Respiratory 16 16 18 Rate Blood Pressure 107/64 91/77 109/62 O2 Saturation 96 100 100 Oxygen O2 Source Room air - Labs Labs: Laboratory Tests 03/18/19 03/18/19 03/18/19 09:57 09:57 09:57 WBC 6.5 RBC 3.89 L Hgb 11.3 L Hct 33.1 L MCV 85.1 MCH 29.0 MCHC 34.1 RDW 14.1 Plt Count 143 MPV 9.3 Neut # (Auto) 5.5 Lymph # (Auto) 0.7 L [place] # (Auto) 0.2 Eos # (Auto) 0.2 Baso # (Auto) 0.0 Absolute Nucleated RBC 0.00 Nucleated RBC % 0.0 Sodium 140 Potassium 3.6 Chloride 101 Carbon Dioxide 23 Anion Gap 16.0 H BUN 7 Creatinine 0.7 Estimated GFR (MDRD) 98 Glucose 121 H Calcium 9.0 Total Bilirubin 0.9 AST 68 H ALT 28 Alkaline Phosphatase 63 Total Protein 7.2 Albumin 4.5 Globulin 2.7 Albumin/Globulin Ratio 1.7 Lipase 48 HCG, Quant < 0.60 Ethyl Alcohol 126.8 Group A Strep Rapid 03/18/19 10:00 WBC RBC Hgb Hct MCV MCH MCHC RDW Plt Count MPV Neut # (Auto) Lymph # (Auto) [place] # (Auto) Eos # (Auto) Baso # (Auto) Absolute Nucleated RBC Nucleated RBC % Sodium Potassium Chloride Carbon Dioxide Anion Gap BUN Creatinine Estimated GFR (MDRD) Glucose Calcium Total Bilirubin AST ALT Alkaline Phosphatase Total Protein Albumin Globulin Albumin/Globulin Ratio Lipase HCG, Quant Ethyl Alcohol Group A Strep Rapid Negative PD MEDICAL DECISION MAKING - ED course Complexity details: considered differential (UTI, gastritis, ectopic, appendicitis, menses, pancreatitis, drug reaction, thrombocytopenia) ED course: Pt is well-appearing with a benign abdomen with minimal tenderness on exam. She was given fluids, zofran and then reglan for her symptoms. Labs show a chronic mild anemia, no leukocytosis. She has mild AST elevation and a positive alcohol level consistent with her chronic alcohol use. She reports unrevealing work ups for her abdominal pain in the past, and on repeat exam her pain is resolved, so I have low suspicion for acute abominal pathology. Gastritis is possible. She denies pelvic symptoms. I discussed cessation of alcohol, PCP follow up, and return precautions. Regarding her rash, it has been ongoing for several weeks, she has a negative strep, no pain, no oral lesions, and no obvious causative medications. I discussed close follow up with her PCP on this. Patient was discharged home in good condition. Departure - Departure Disposition: 01 Home, Self Care Clinical Impression: Gastritis Qualifiers: Gastritis type: unspecified gastritis Chronicity: acute Gastritis bleeding: without bleeding Qualified Code(s): K29.00 - Acute gastritis without bleeding Abdominal pain Qualifiers: Abdominal location: periumbilical Qualified Code(s): R10.33 - Periumbilical pain Condition: Good Instructions: Alcoholism, ED Gastritis Comments: You were seen today for some abdominal discomfort. This may related to alcohol use, you have some signs of liver inflammation. Please stop drinking alcohol, this is causing you great harm. If you are having worsening symptoms such as persistent vomiting, or other Concerning symptoms return to emergency department. Please follow with your primary care provider within 1 week. Discharge Date/Time: 03/18/19 12:12
[2019-03-18] MEDS ORDERED: ONDANSETRON 4 MG/2 ML VIAL IVP STA (08:53)
[2019-03-18] MEDS ORDERED: SODIUM CHLORIDE 0.9% 1,000 ML IV STA (08:53)
[2019-03-18 10:05] LABS: BASOPHILS % (AUTO) 0.6 %; EOSINOPHILS # (AUTO) 0.2 10^3/uL (0.0-0.7); EOSINOPHILS % (AUTO) 2.5 %; HGB - HEMOGLOBIN 11.3 g/dL (12.0-16.0); LYMPHOCYTES # (AUTO) 0.7 10^3/uL (1.5-3.5); LYMPHOCYTES % (AUTO) 10.1 %; MEAN CORPUSCULAR HGB CONC 34.1 g/dL (32.0-36.0); MEAN CORPUSCULAR VOLUME 85.1 fL (81.0-99.0); MEAN PLATELET VOLUME 9.3 fL (7.9-10.8); MONOCYTES # (AUTO) 0.2 10^3/uL (0.0-1.0); MONOCYTES % (AUTO) 2.8 %; NEUTROPHILS # (AUTO) 5.5 10^3/uL (1.5-6.6); NEUTROPHILS % (AUTO) 83.7 %; PLT - PLATELET COUNT 143 10^3/uL (130-450); RED BLOOD COUNT 3.89 10^6/uL (4.20-5.40); RED CELL DISTRIBUTION WIDTH 14.1 % (12.0-15.0); WHITE BLOOD COUNT 6.5 x10^3/uL (4.8-10.8)
[2019-03-18 10:19] LABS: ALBUMIN 4.5 g/dL (3.2-5.5); ALBUMIN/GLOBULIN RATIO 1.7 (1.0-2.2); BILIRUBIN,TOTAL 0.9 mg/dL (0.2-1.0); CREATININE 0.7 mg/dL (0.4-1.0); TOTAL PROTEIN 7.2 g/dL (6.7-8.2)
[2019-03-18] MEDS ORDERED: METOCLOPRAMIDE 10 MG/2 ML VIAL IVP STA (11:10)
[2019-03-18 12:06] VITALS: BP 109/62
== END 2019-03-18 12:12 | disposition home or self-care (01) ==
LOC: ED 08:17
DX: K29.00 Acute gastritis without bleeding (principal); R21 Rash and other nonspecific skin eruption; D53.9 Nutritional anemia, unspecified; R74.8 Abnormal levels of other serum enzymes; Z72.89 Other problems related to lifestyle
CPT/HCPCS: 36415; 80053; 80320; 83690; 84702; 85025; 87070; 87430; 96361; 96374; 96375; 99283; 99284; J2765; 87491; 87591; 87661

== ENCOUNTER 2019-04-25 03:17 | Emergency (ER) | payer OTHER ==
--- NOTE | 2019-04-25 03:36 | ED Physician Documentation ---
PD HPI ABD PAIN - Stated complaint Stated Complaint: ABD PX/VOMITING - Chief complaint Chief Complaint: Abd Pain - History obtained from History obtained from: Patient - History of Present Illness Timing - onset: Yesterday Timing - details: Abrupt onset Pain level now: 8 Quality: Pain Location: All over / everywhere Improved by: Other (nothing) Worsened by: Other (movement, palpation) Associated symptoms: Nausea, Vomiting. No: Fever, Diarrhea, Constipation - Additional information Additional information: c/o nausea, vomiting, abdominal pain since yesterday afternoon. Took zofran at home without improvement. Review of Systems Constitutional: denies: Fever, Chills, Sweats Cardiac: reports: Reviewed and negative Respiratory: reports: Reviewed and negative GI: reports: Abdominal Pain, Nausea, Vomiting. 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, Miscarriage(s) : None HEENT: None Psych: Depression, Other Musculoskeletal: None Derm: None - Past Surgical History Past Surgical History: Yes /SILVERWARE BUFFING MACHINE OPERATOR: Dilation and currettage - Present Medications Home Medications: Ambulatory Orders Medication Instructions Recorded Confirmed traZODone [Desyrel] 0 mg DAILY 03/18/19 03/18/19 Promethazine [Phenergan] 25 mg PO Q6H PRN #10 tab 04/25/19 - Allergies Allergies/Adverse Reactions: Allergies Allergy/AdvReac Type Severity Reaction Status Date / Time hydrocodone bitartrate * AdvReac Mild Nausea Verified 03/18/19 08:34 [From Lortab] - Social History Does the pt smoke?: No Smoking Status: Never smoker Does the pt drink ETOH?: Yes Does the pt have substance abuse?: No - Immunizations Immunizations are current?: Yes - POLST Patient has POLST: No PD ED PE NORMAL - Vitals Vital signs reviewed: Yes - General General: 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, Well developed/nourished - HEENT HEENT: Moist mucous membranes - Cardiac Cardiac: RRR, No murmur - Respiratory Respiratory: No respiratory distress, Clear bilaterally - Abdomen Abdomen: Soft, Non tender, Non distended - Derm Derm: Normal color, Warm and dry Results - Vitals Vitals: Vital Signs - 24 hr 04/25/19 04/25/19 04/25/19 03:23 05:22 06:06 Temperature 36.5 C 36.5 C 37.1 C Heart Rate 82 82 81 Respiratory 16 16 18 Rate Blood Pressure 104/55 L 101/64 94/61 O2 Saturation 100 100 99 Oxygen O2 Source Room air - Labs Labs: Laboratory Tests 04/25/19 04/25/19 04/25/19 04:00 04:00 05:20 WBC 5.5 RBC 3.59 L Hgb 10.0 L Hct 30.7 L MCV 85.5 MCH 27.9 MCHC 32.6 RDW 13.8 Plt Count 269 MPV 9.9 Neut # (Auto) 3.0 Lymph # (Auto) 1.7 [place] # (Auto) 0.5 Eos # (Auto) 0.3 Baso # (Auto) 0.1 Absolute Nucleated RBC 0.00 Nucleated RBC % 0.0 Sodium 139 Potassium 3.0 L Chloride 105 Carbon Dioxide 23 Anion Gap 11.0 BUN 10 Creatinine 0.6 Estimated GFR (MDRD) 117 Glucose 116 H Calcium 9.2 Total Bilirubin 1.0 AST 32 ALT 12 Alkaline Phosphatase 43 Total Protein 7.3 Albumin 4.5 Globulin 2.8 Albumin/Globulin Ratio 1.6 Lipase 54 H Urine Color YELLOW Urine Clarity CLEAR Urine pH 6.0 Ur Specific [place] <=1.005 Urine Protein NEGATIVE Urine Glucose (UA) NEGATIVE Urine Ketones NEGATIVE Urine Occult Blood NEGATIVE Urine Nitrite NEGATIVE Urine Bilirubin NEGATIVE Urine Urobilinogen 0.2 (NORMAL) Ur Leukocyte Esterase NEGATIVE Ur Microscopic Review NOT INDICATED Urine Culture Comments NOT INDICATED Urine HCG, Qual NEGATIVE Ethyl Alcohol < 5.0 PD MEDICAL DECISION MAKING - ED course Complexity details: reviewed old records, reviewed results, re-evaluated patient, considered differential, d/w patient ED course: On reevaluation after IV fluids and phenergan, patient is asleep, awakens to verbal stimulus. She says she still has some nausea. Given IV zofran as well as PO potassium for hypokalemia. DENISE reflects 21 ED visits over past 12 months to 5 different emergency departments. She tells me she does not have a PMD because she recently moved from [place]. However, I point out to her that she has had frequent ED visits since September; she says she moved back to [facility] in November and is waiting for insurance coverage. Departure - Departure Disposition: 01 Home, Self Care Clinical Impression: Hypokalemia Nausea & vomiting Qualifiers: Vomiting type: unspecified Vomiting Intractability: non-intractable Qualified Code(s): R11.2 - Nausea with vomiting, unspecified Abdominal pain Qualifiers: Abdominal location: generalized Qualified Code(s): R10.84 - Generalized abdominal pain Condition: Good Instructions: ED Abdominal Pain Unkn Cause, ED Potassium Deficiency, ED Nausea Vomiting Prescriptions: Promethazine [Phenergan] 25 mg PO Q6H PRN #10 tab PRN Reason: Nausea / Vomiting Discharge Date/Time: 04/25/19 06:06
[2019-04-25] MEDS ORDERED: SODIUM CHLORIDE 0.9% 1,000 ML IV STA (03:44)
[2019-04-25] MEDS ORDERED: KETOROLAC 30 MG/ML VIAL IVP STA (03:44)
[2019-04-25] MEDS ORDERED: PROMETHAZINE INJ 25 MG in SODIUM CHLORIDE 0.9% 50 ML IV STA (03:44)
[2019-04-25 04:12] LABS: BASOPHILS # (AUTO) 0.1 10^3/uL (0.0-0.1); BASOPHILS % (AUTO) 1.3 %; EOSINOPHILS # (AUTO) 0.3 10^3/uL (0.0-0.7); EOSINOPHILS % (AUTO) 5.4 %; LYMPHOCYTES # (AUTO) 1.7 10^3/uL (1.5-3.5); LYMPHOCYTES % (AUTO) 30.4 %; MEAN CORPUSCULAR HEMOGLOBIN 27.9 pg (27.0-31.0); MEAN CORPUSCULAR HGB CONC 32.6 g/dL (32.0-36.0); MEAN CORPUSCULAR VOLUME 85.5 fL (81.0-99.0); MEAN PLATELET VOLUME 9.9 fL (7.9-10.8); MONOCYTES # (AUTO) 0.5 10^3/uL (0.0-1.0); MONOCYTES % (AUTO) 8.7 %; PLT - PLATELET COUNT 269 10^3/uL (130-450); RED BLOOD COUNT 3.59 10^6/uL (4.20-5.40); RED CELL DISTRIBUTION WIDTH 13.8 % (12.0-15.0); WHITE BLOOD COUNT 5.5 x10^3/uL (4.8-10.8)
[2019-04-25 04:26] LABS: ALBUMIN 4.5 g/dL (3.2-5.5); ALBUMIN/GLOBULIN RATIO 1.6 (1.0-2.2); ALKALINE PHOSPHATASE 43 IU/L (42-121); ALT ALANINE AMINOTRANSFERASE 12 IU/L (10-60); AST ASPARTATE AMINOTRANSFERASE 32 IU/L (10-42); BUN - BLOOD UREA NITROGEN 10 mg/dL (6-20); CALCIUM 9.2 mg/dL (8.5-10.3); CARBON DIOXIDE - CO2 23 mmol/L (21-32); CHLORIDE 105 mmol/L (101-111); CREATININE 0.6 mg/dL (0.4-1.0); GFR - MDRD 117 (>89); GLUCOSE 116 mg/dL (70-100); LIPASE 54 U/L (22-51); SODIUM 139 mmol/L (135-145); TOTAL PROTEIN 7.3 g/dL (6.7-8.2)
[2019-04-25 05:25] LABS: BILIRUBIN,URINE NEGATIVE (NEGATIVE); GLUCOSE, URINE (UA) NEGATIVE (NEGATIVE); KETONES,URINE (UA) NEGATIVE (NEGATIVE); LEUKOCYTE ESTERASE, URINE NEGATIVE (NEGATIVE); NITRITE,URINE NEGATIVE (NEGATIVE); OCCULT BLOOD,URINE NEGATIVE (NEGATIVE); PROTEIN,URINE NEGATIVE (NEGATIVE); UROBILINOGEN,URINE 0.2 (NORMAL) E.U./dL (NORMAL)
[2019-04-25 05:27] LABS: CLARITY,URINE CLEAR (CLEAR); HCG UR QUAL NEGATIVE
[2019-04-25] MEDS ORDERED: ONDANSETRON 4 MG/2 ML VIAL IVP STA (05:32)
[2019-04-25] MEDS ORDERED: POTASSIUM CHLORIDE 20 MEQ TABLET PO STA (05:58)
[2019-04-25 06:07] VITALS: BP 94/61
== END 2019-04-25 06:06 | disposition home or self-care (01) ==
LOC: ED 03:17
DX: E87.6 Hypokalemia (principal); R11.2 Nausea with vomiting, unspecified; R10.84 Generalized abdominal pain
CPT/HCPCS: 36415; 80053; 80320; 81003; 81025; 83690; 85025; 96361; 96365; 96375; 99284; A9270; J7040; 81001; 87086

== ENCOUNTER 2019-05-01 11:00 | Outpatient (CLI) | payer OTHER | END 2019-05-01 11:01 | disposition critical access hospital (66) | LOC: EMS 11:00 | PROVIDERS: ATTEND Surgery | DX: R55 Syncope and collapse (principal); R41.0 Disorientation, unspecified | CPT/HCPCS: A0425; A0429 ==

== ENCOUNTER 2019-05-01 11:17 | Emergency (ER) | payer OTHER ==
[2019-05-01 11:25] VITALS: BP 115/80
[2019-05-01] MEDS ORDERED: SODIUM CHLORIDE 0.9% 1,000 ML IV ONE ×2 (11:28)
[2019-05-01 11:51] LABS: BASOPHILS # (AUTO) 0.1 10^3/uL (0.0-0.1); EOSINOPHILS # (AUTO) 0.5 10^3/uL (0.0-0.7); EOSINOPHILS % (AUTO) 11.4 %; HGB - HEMOGLOBIN 11.5 g/dL (12.0-16.0); LYMPHOCYTES % (AUTO) 23.9 %; MEAN CORPUSCULAR HEMOGLOBIN 26.9 pg (27.0-31.0); MEAN CORPUSCULAR VOLUME 84.1 fL (81.0-99.0); MEAN PLATELET VOLUME 9.2 fL (7.9-10.8); MONOCYTES # (AUTO) 0.1 10^3/uL (0.0-1.0); MONOCYTES % (AUTO) 3.2 %; NEUTROPHILS # (AUTO) 2.4 10^3/uL (1.5-6.6); PLT - PLATELET COUNT 274 10^3/uL (130-450); RED BLOOD COUNT 4.27 10^6/uL (4.20-5.40); RED CELL DISTRIBUTION WIDTH 13.7 % (12.0-15.0)
[2019-05-01 12:07] LABS: ALBUMIN 4.6 g/dL (3.2-5.5); ALBUMIN/GLOBULIN RATIO 1.7 (1.0-2.2); BILIRUBIN,TOTAL 0.7 mg/dL (0.2-1.0); CALCIUM 8.9 mg/dL (8.5-10.3); CREATININE 0.7 mg/dL (0.4-1.0); TOTAL PROTEIN 7.3 g/dL (6.7-8.2)
[2019-05-01 12:19] LABS: BILIRUBIN,URINE NEGATIVE (NEGATIVE); GLUCOSE, URINE (UA) NEGATIVE (NEGATIVE); KETONES,URINE (UA) NEGATIVE (NEGATIVE); LEUKOCYTE ESTERASE, URINE NEGATIVE (NEGATIVE); NITRITE,URINE NEGATIVE (NEGATIVE); OCCULT BLOOD,URINE NEGATIVE (NEGATIVE); PROTEIN,URINE TRACE mg/dL (NEGATIVE); UROBILINOGEN,URINE 0.2 (NORMAL) E.U./dL (NORMAL)
[2019-05-01 12:21] LABS: CLARITY,URINE HAZY (CLEAR); HCG UR QUAL NEGATIVE
[2019-05-01 12:29] LABS: BACTERIA,URINE Rare /HPF (None Seen); MUCUS,URINE Few Strands; RBC,URINE 0-5 /HPF (0-5); SQUAMOUS EPITHELIAL CELL,UR MANY Squamous (<= Few)
[2019-05-01] MEDS ORDERED: THIAMINE INJ 100 MG in SODIUM CHLORIDE 0.9% 50 ML IV STA (12:43)
[2019-05-01] MEDS ORDERED: PROMETHAZINE INJ 25 MG in SODIUM CHLORIDE 0.9% 50 ML IV STA (12:43)
--- NOTE | 2019-05-01 12:44 | ED Physician Documentation ---
PD HPI MHE - Stated complaint Stated Complaint: ETOH - Chief complaint Chief Complaint: MHE - History obtained from History obtained from: Patient (28-year-old woman presents by ambulance for what seems like simple alcohol intoxication. She got quite drunk on vodka this morning. She is currently living alone, her is deployed in the [employer] and will be back in 2 weeks. She does have children but they are cared for by somebody else right now. She declines to talk to the social work coordinator or consider detox at this juncture. 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: Dilation and currettage - Present Medications Home Medications: Ambulatory Orders Medication Instructions Recorded Confirmed traZODone [Desyrel] 0 mg DAILY 03/18/19 03/18/19 Promethazine [Phenergan] 25 mg PO Q6H PRN #10 tab 04/25/19 - Allergies Allergies/Adverse Reactions: Allergies Allergy/AdvReac Type Severity Reaction Status Date / Time hydrocodone bitartrate * AdvReac Mild Nausea Verified 05/01/19 11:27 [From Lortab] - Social History Does the pt smoke?: No Smoking Status: Never smoker Does the pt drink ETOH?: Yes Does the pt have substance abuse?: No - Immunizations Immunizations are current?: Yes - POLST Patient has POLST: No PD ED PE NORMAL - Vitals Vital signs reviewed: Yes - General General: 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, No acute distress, Other (Mildly slurred speech, nystagmus, but alert and oriented and cooperative) - Neck Neck: Supple, no meningeal sign, No bony TTP - Neuro Neuro: 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, Normal speech Results - Vitals Vitals: Vital Signs - 24 hr 05/01/19 11:20 Temperature 98.3 C H Heart Rate 101 H Respiratory 14 Rate Blood Pressure 115/80 O2 Saturation 96 Oxygen O2 Source Room air - Labs Labs: Laboratory Tests 05/01/19 05/01/19 05/01/19 10:10 11:45 11:45 WBC 4.0 L RBC 4.27 Hgb 11.5 L Hct 35.9 L MCV 84.1 MCH 26.9 L MCHC 32.0 RDW 13.7 Plt Count 274 MPV 9.2 Neut # (Auto) 2.4 Lymph # (Auto) 1.0 L [place] # (Auto) 0.1 Eos # (Auto) 0.5 Baso # (Auto) 0.1 Absolute Nucleated RBC 0.00 Nucleated RBC % 0.0 Sodium 143 Potassium 3.8 Chloride 102 Carbon Dioxide 25 Anion Gap 16.0 H BUN 7 Creatinine 0.7 Estimated GFR (MDRD) 98 Glucose 106 H Calcium 8.9 Total Bilirubin 0.7 AST 83 H ALT 39 Alkaline Phosphatase 59 Total Protein 7.3 Albumin 4.6 Globulin 2.7 Albumin/Globulin Ratio 1.7 Lipase 44 Urine Color YELLOW Urine Clarity HAZY Urine pH 6.0 Ur Specific [place] 1.025 Urine Protein TRACE Urine Glucose (UA) NEGATIVE Urine Ketones NEGATIVE Urine Occult Blood NEGATIVE Urine Nitrite NEGATIVE Urine Bilirubin NEGATIVE Urine Urobilinogen 0.2 (NORMAL) Ur Leukocyte Esterase NEGATIVE Urine RBC 0-5 Urine WBC 0-3 Ur Squamous Epith Cells MANY Squamous H Urine Bacteria Rare Urine Mucus Few Strands Ur Microscopic Review INDICATED Urine Culture Comments NOT INDICATED Urine HCG, Qual NEGATIVE Ethyl Alcohol 326.3 PD MEDICAL DECISION MAKING - ED course ED course: 28-year-old woman presents with what seems like uncomplicated alcohol intoxication. She was being allowed to sober up in the department, but after her sponsor arrived wanted to leave. I discussed with her that her blood alcohol was probably still around 250 or so and I could not discharge her but she wanted to leave AMA. Despite the likely still high alcohol level she seemed cogent and coherent, we had a conversation and she understood the risks of leaving. Her sponsor verbally agreed that she would take her home and keep an eye on her. Departure - Departure Disposition: 07 Against Medical Advice Clinical Impression: Alcohol abuse Alcoholic intoxication Qualifiers: Complication of substance-induced condition: uncomplicated Qualified Code(s): F10.920 - Alcohol use, unspecified with intoxication, uncomplicated
[2019-05-01] MEDS ORDERED: THIAMINE INJ 100 MG in SODIUM CHLORIDE 0.9% 50 ML IV ONE (13:04)
== END 2019-05-01 14:44 | disposition left against medical advice (07) ==
LOC: EDUNIT# → ED 11:17
DX: F10.129 Alcohol abuse with intoxication, unspecified (principal)
CPT/HCPCS: 36415; 80053; 80320; 81001; 81025; 83690; 85025; 96361; 96365; 96367; 99283; 99284; J3411; J7040; 81003; 87086

== ENCOUNTER 2019-05-02 00:43 | Emergency (ER) | payer OTHER ==
[2019-05-02] MEDS ORDERED: ONDANSETRON 4 MG/2 ML VIAL IVP STA (01:42)
[2019-05-02] MEDS ORDERED: SODIUM CHLORIDE 0.9% 1,000 ML IV STA (01:42)
[2019-05-02] MEDS ORDERED: diphenhydrAMINE INJ 50 MG/ML VIAL IVP STA (02:16)
[2019-05-02] MEDS ORDERED: FAMOTIDINE 20 MG/2 ML VIAL IVP STA (02:19)
--- NOTE | 2019-05-02 02:21 | ED Physician Documentation ---
History of Present Illness - Stated complaint Stated Complaint: N/V - Chief complaint Chief Complaint: Abd Pain - Additonal information Additional information: This is a 28-year-old female with a history of alcohol use disorder, who has frequent visits to the emergency department for nausea and vomiting, who presents with nausea and vomiting as well as a rash. Patient continues to drink alcohol, she states that her last drink was this evening, and she began developing nausea and vomiting today which she thinks is linked to her drinking. Additionally she developed itchy rash which is diffuse and over her entire body. She denies any pain of the rash. She denies having a rash like this before. She states that she has had no new medications, no medication changes or environmental exposures. No blisters, no lesions in her mouth, eyes, or vagina. She denies fever, neck pain, or confusion. 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: Ovarian cysts, Miscarriage(s) : None HEENT: None Psych: Depression, Other Musculoskeletal: None Derm: None - Past Surgical History Past Surgical History: Yes /ASSOCIATE OF SCIENCE IN NURSING: Dilation and currettage - Present Medications Home Medications: Ambulatory Orders Medication Instructions Recorded Confirmed traZODone [Desyrel] 150 mg PO DAILY 03/18/19 03/18/19 Mirtazapine [Remeron] 30 mg PO DAILY 05/02/19 05/02/19 Ondansetron Odt [Zofran] 4 mg TL Q6H PRN #10 tablet 05/02/19 - Allergies Allergies/Adverse Reactions: Allergies Allergy/AdvReac Type Severity Reaction Status Date / Time hydrocodone bitartrate * AdvReac Mild Nausea Verified 05/02/19 00:50 [From Lortab] - Social History Does the pt smoke?: No Smoking Status: Never smoker Does the pt drink ETOH?: Yes Does the pt have substance abuse?: No - Immunizations Immunizations are current?: Yes - POLST Patient has POLST: No PD ED PE NORMAL - Vitals Vital signs reviewed: Yes - General General: 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, Other (Uncomfortable appearing, but nontoxic) - HEENT HEENT: Atraumatic, PERRL, Pharynx benign, Other (No mucosal lesions) - Neck Neck: Supple, no meningeal sign - Cardiac Cardiac: RRR, No murmur - Respiratory Respiratory: No respiratory distress, Clear bilaterally - Abdomen Abdomen: Normal bowel sounds, Soft, Non tender, Non distended - Derm Derm: Other (There is a fine erythematous macular papular rash that extends over her entire body from her head to her feet, and is slightly worse on the trunk. It is blanching, there are no areas of purulence, or necrosis, no petechiae. No mucosal involvement. Conjunctiva normal.) - Extremities Extremities: No deformity - Neuro Neuro: 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 - Psych Psych: Normal mood, Normal affect Results - Vitals Vitals: Vital Signs - 24 hr 05/02/19 05/02/19 05/02/19 00:48 01:10 02:45 Temperature 36.0 C L Heart Rate 86 87 81 Respiratory 20 18 16 Rate Blood Pressure 93/60 114/63 101/60 O2 Saturation 100 100 100 05/02/19 05/02/19 05/02/19 03:17 03:30 04:32 Temperature Heart Rate 86 85 79 Respiratory 16 16 14 Rate Blood Pressure 97/63 100/63 104/72 O2 Saturation 100 100 100 05/02/19 05:15 Temperature 36.8 C Heart Rate 89 Respiratory 16 Rate Blood Pressure 117/69 O2 Saturation 100 Oxygen O2 Source Room air - Labs Labs: Laboratory Tests 05/02/19 05/02/19 05/02/19 02:15 02:15 03:34 WBC 9.0 RBC 3.80 L Hgb 10.3 L Hct 31.8 L MCV 83.7 MCH 27.1 MCHC 32.4 RDW 13.6 Plt Count 254 MPV 9.4 Neut # (Auto) 7.3 H Lymph # (Auto) 1.1 L [place] # (Auto) 0.5 Eos # (Auto) 0.0 Baso # (Auto) 0.1 Absolute Nucleated RBC 0.00 Nucleated RBC % 0.0 Sodium 141 Potassium 3.3 L Chloride 100 L Carbon Dioxide 23 Anion Gap 18.0 H BUN 7 Creatinine 0.6 Estimated GFR (MDRD) 117 Glucose 97 Calcium 9.6 Total Bilirubin 1.5 H AST 78 H ALT 33 Alkaline Phosphatase 55 Total Protein 7.5 Albumin 4.7 Globulin 2.8 Albumin/Globulin Ratio 1.7 Lipase 48 Urine Color YELLOW Urine Clarity CLEAR Urine pH 6.5 Ur Specific [place] 1.025 Urine Protein 30 H Urine Glucose (UA) NEGATIVE Urine Ketones >=80 H Urine Occult Blood NEGATIVE Urine Nitrite NEGATIVE Urine Bilirubin NEGATIVE Urine Urobilinogen 0.2 (NORMAL) Ur Leukocyte Esterase NEGATIVE Urine RBC None Seen Urine WBC 0-3 Ur Squamous Epith Cells FEW Squamous Urine Bacteria Few Ur Microscopic Review INDICATED Urine Culture Comments NOT INDICATED Urine HCG, Qual NEGATIVE Ethyl Alcohol 43.3 PD MEDICAL DECISION MAKING - ED course Complexity details: considered differential (Gastritis, pancreatitis, cholecystitis, gastroenteritis, electrolyte abnormality, , allergic reaction, Hernandez-Nain, urticaria) ED course: On examination patient is uncomfortable appearing but nontoxic, vital signs unremarkable. IV was inserted labs are drawn she was given a dose of Zofran. She required a further dose of Phenergan to help control her nausea. She was also given IV fluids for hydration. Her blood counts show no leukocytosis she has a stable anemia, her chemistry panel shows a mild hypokalemia, and slightly elevated anion gap, bilirubin is mildly elevated which may be starvation hyperbilirubinemia, but she also has had a mildly elevated bilirubin in the past which may be related to some hepatic damage. Her AST is elevated with her ALT normal, consistent with her alcohol use. Her lipase is negative. Ethanol level is 43, consistent with her reported alcohol use. Urine is negative for infection and hCG is also negative. On repeat examination her abdomen is benign, and she is able to tolerate p.o. fluids. Regarding her nausea and vomiting, I think this is likely alcoholic gastritis she states that she has had multiple episodes very similar to this which happened after drinking heavily, and she is trying to quit drinking. Given her abdomen is benign and she is now feeling nearly completely better I think she is safe for outpatient follow-up, I discussed return precautions, PCP care, I prescribed her some Zofran for symptomatic control. Regarding her rash, this is blanching, diffuse, macular papular and itchy. There are no red flag symptoms to suggest a more serious cause a rash, no mucosal involvement, no fever, no blistering, no necrosis. When she was given Benadryl and dexamethasone and her rash greatly improved on repeat examination, it has almost completely faded. Her symptoms are tolerable to her now. She denies any known environmental exposures, and she has not had a similar rash in the past, it is unclear what the exact cause of this is. Given that she is well-appearing and I do not see any more serious cause of her rash, I discussed that she should carefully assess her environment for any possible allergens, and keep track of what she eats and when she is using in terms of soaps and detergents. I also recommended that if she have any worsening symptoms or new concerning symptoms that she return to the emergency department. Patient agrees with plan and was discharged home Departure - Departure Disposition: 01 Home, Self Care Clinical Impression: Rash Vomiting Qualifiers: Vomiting type: unspecified Vomiting Intractability: non-intractable Nausea presence: with nausea Qualified Code(s): R11.2 - Nausea with vomiting, unspecified Condition: Good Follow-Up: Your,PCP [Other] - Within 1 week Prescriptions: Ondansetron Odt [Zofran] 4 mg TL Q6H PRN #10 tablet PRN Reason: Nausea / Vomiting Comments: You were seen today for nausea and vomiting, I think this is related to your alcohol use. Please avoid drinking alcohol. You are damaging your liver. I am prescribing you some Zofran for nausea and vomiting. If you are having abdominal pain, vomiting despite the Zofran, or other concerning symptoms, plea se return to the emergency department. You also had a rash today, and it is unclear what the cause this rash was. You may take Benadryl 25-50 mg up to 3 times daily for itching. We also gave you st jaclyn here which will hopefully help. Please carefully track any possible exposures in your environment that could be causing the rash, such as new soaps, detergents, foods, or other possible irritants. If you develop rash on your eyes, mouth, vagina, or any blistering, fever, or other concerning symptoms please return to the emergency department.
[2019-05-02 02:33] LABS: BASOPHILS # (AUTO) 0.1 10^3/uL (0.0-0.1); BASOPHILS % (AUTO) 0.6 %; HGB - HEMOGLOBIN 10.3 g/dL (12.0-16.0); LYMPHOCYTES # (AUTO) 1.1 10^3/uL (1.5-3.5); MEAN CORPUSCULAR HEMOGLOBIN 27.1 pg (27.0-31.0); MEAN CORPUSCULAR HGB CONC 32.4 g/dL (32.0-36.0); MEAN CORPUSCULAR VOLUME 83.7 fL (81.0-99.0); MEAN PLATELET VOLUME 9.4 fL (7.9-10.8); MONOCYTES # (AUTO) 0.5 10^3/uL (0.0-1.0); MONOCYTES % (AUTO) 5.2 %; NEUTROPHILS # (AUTO) 7.3 10^3/uL (1.5-6.6); NEUTROPHILS % (AUTO) 81.8 %; PLT - PLATELET COUNT 254 10^3/uL (130-450); RED CELL DISTRIBUTION WIDTH 13.6 % (12.0-15.0)
[2019-05-02 02:47] LABS: ALBUMIN 4.7 g/dL (3.2-5.5); ALBUMIN/GLOBULIN RATIO 1.7 (1.0-2.2); BILIRUBIN,TOTAL 1.5 mg/dL (0.2-1.0); CALCIUM 9.6 mg/dL (8.5-10.3); CREATININE 0.6 mg/dL (0.4-1.0); TOTAL PROTEIN 7.5 g/dL (6.7-8.2)
[2019-05-02] MEDS ORDERED: PROMETHAZINE INJ 25 MG in SODIUM CHLORIDE 0.9% 50 ML IV STA (02:48)
[2019-05-02 03:43] LABS: GLUCOSE, URINE (UA) NEGATIVE (NEGATIVE); KETONES,URINE (UA) >=80 mg/dL (NEGATIVE); LEUKOCYTE ESTERASE, URINE NEGATIVE (NEGATIVE); NITRITE,URINE NEGATIVE (NEGATIVE); OCCULT BLOOD,URINE NEGATIVE (NEGATIVE); PH,URINE 6.5 PH (5.0-7.5); PROTEIN,URINE 30 mg/dL (NEGATIVE); UROBILINOGEN,URINE 0.2 (NORMAL) E.U./dL (NORMAL)
[2019-05-02 03:54] LABS: BACTERIA,URINE Few /HPF (None Seen); BILIRUBIN,URINE NEGATIVE (NEGATIVE); CLARITY,URINE CLEAR (CLEAR); HCG UR QUAL NEGATIVE; ICTOTEST,URINE NEGATIVE; RBC,URINE None Seen /HPF (0-5); SQUAMOUS EPITHELIAL CELL,UR FEW Squamous (<= Few)
[2019-05-02] MEDS ORDERED: CHERRY SYRUP 10 ML UDC PO ONE (04:17)
[2019-05-02] MEDS ORDERED: DEXAMETHASONE 10 MG/ML VIAL PO STA (04:17)
[2019-05-02] MEDS ORDERED: diphenhydrAMINE 25 MG CAPSULE PO STA (04:17)
[2019-05-02 05:17] VITALS: BP 117/69
== END 2019-05-02 05:16 | disposition home or self-care (01) ==
LOC: ED 00:43
DX: R21 Rash and other nonspecific skin eruption (principal); R11.2 Nausea with vomiting, unspecified; Z72.89 Other problems related to lifestyle; Y90.2 Blood alcohol level of 40-59 mg/100 ml; D64.9 Anemia, unspecified; E87.6 Hypokalemia
CPT/HCPCS: 36415; 80053; 80320; 81001; 81025; 83690; 85025; 96361; 96365; 96375; 99284; A9270; J1200; J7040; 81003; 87086

== ENCOUNTER 2019-05-12 18:17 | Outpatient (CLI) | payer OTHER | END 2019-05-12 18:18 | disposition critical access hospital (66) | LOC: EMS 18:17 | PROVIDERS: ATTEND Surgery | DX: R11.10 Vomiting, unspecified (principal); Z72.89 Other problems related to lifestyle | CPT/HCPCS: A0425; A0429 ==

== ENCOUNTER 2019-05-12 18:33 | Emergency (ER) | payer OTHER ==
[2019-05-12] MEDS ORDERED: ONDANSETRON 4 MG/2 ML VIAL IVP STA (18:48)
[2019-05-12] MEDS ORDERED: SODIUM CHLORIDE 0.9% 1,000 ML IV ONE (18:48)
[2019-05-12] MEDS ORDERED: THIAMINE 100 MG TABLET PO STA (18:48)
[2019-05-12] MEDS ORDERED: LORazepam 2 MG/ML VIAL IVP STA (18:48)
--- NOTE | 2019-05-12 18:49 | ED Physician Documentation ---
History of Present Illness - Stated complaint Stated Complaint: ETOH - History obtained from History obtained from: Patient (28-year-old woman history of alcoholism presents having been not drinking for about 36 hours and presents with anxiety, shakiness, nausea and diarrhea. No hallucinations.), EMS Review of Systems Constitutional: reports: Fatigue. 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: Ovarian cysts, Miscarriage(s) : None HEENT: None Psych: Depression, Other Musculoskeletal: None Derm: None - Past Surgical History Past Surgical History: Yes /BUFFING AND SUEDING MACHINE OPERATOR: Dilation and currettage - Present Medications Home Medications: Ambulatory Orders Medication Instructions Recorded Confirmed traZODone [Desyrel] 150 mg PO DAILY 03/18/19 03/18/19 Mirtazapine [Remeron] 30 mg PO DAILY 05/02/19 05/02/19 Ondansetron Odt [Zofran] 4 mg TL Q6H PRN #10 tablet 05/02/19 - Allergies Allergies/Adverse Reactions: Allergies Allergy/AdvReac Type Severity Reaction Status Date / Time hydrocodone bitartrate * AdvReac Mild Nausea Verified 05/12/19 18:51 [From Lortab] - Social History Does the pt smoke?: No Smoking Status: Never smoker Does the pt drink ETOH?: Yes Does the pt have substance abuse?: No - Immunizations Immunizations are current?: Yes - POLST Patient has POLST: No PD ED PE NORMAL - Vitals Vital signs reviewed: Yes - General General: 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, Other (She is shaky and anxious, tachycardic) - HEENT HEENT: PERRL, EOMI - Neck Neck: Supple, no meningeal sign, No bony TTP - Cardiac Cardiac: RRR, No murmur - Respiratory Respiratory: No respiratory distress, Clear bilaterally - Abdomen Abdomen: Non tender - Extremities Extremities: Other (Tremulous in the periphery but not in the tongue) - Neuro Neuro: 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, Normal speech Results - Vitals Vitals: Vital Signs - 24 hr 05/12/19 18:36 Temperature 36.8 C Heart Rate 123 H Respiratory 22 Rate Blood Pressure 113/82 H O2 Saturation 100 Oxygen O2 Source Room air - Labs Labs: Laboratory Tests 05/12/19 19:33 Sodium 140 Potassium 3.6 Chloride 101 Carbon Dioxide 19 L Anion Gap 20.0 H BUN 8 Creatinine 0.8 Estimated GFR (MDRD) 84 L Glucose 92 Calcium 9.2 Total Bilirubin 1.0 AST 56 H ALT 31 Alkaline Phosphatase 52 Total Protein 7.6 Albumin 4.7 Globulin 2.9 Albumin/Globulin Ratio 1.6 Lipase 38 Ethyl Alcohol 199.5 PD MEDICAL DECISION MAKING - ED course ED course: 28-year-old woman presents with concern for alcohol withdrawal, said she had not drank since yesterday morning,Which when confronted with blood alcohol level of nearly 200 she admits that maybe it was this morning that she was drinking. She was given some IV fluids and thiamine as well. She is trying to find a sober ride to go home and keep an eye on her. Departure - Departure Disposition: 01 Home, Self Care Clinical Impression: Alcohol abuse Alcoholic intoxication Qualifiers: Complication of substance-induced condition: uncomplicated Qualified Code(s): F10.920 - Alcohol use, unspecified with intoxication, uncomplicated Condition: Good Record reviewed to determine appropriate education?: Yes Instructions: ED Alcohol Intoxication Comments: Call your doctor to arrange a follow-up appointment, make the next available appointment. In the interim, return anytime if worse or if new symptoms develop.
[2019-05-12 19:55] LABS: ALBUMIN 4.7 g/dL (3.2-5.5); ALBUMIN/GLOBULIN RATIO 1.6 (1.0-2.2); CALCIUM 9.2 mg/dL (8.5-10.3); CREATININE 0.8 mg/dL (0.4-1.0); TOTAL PROTEIN 7.6 g/dL (6.7-8.2)
[2019-05-12 21:05] VITALS: BP 108/64
== END 2019-05-12 21:32 | disposition home or self-care (01) ==
LOC: EDSEX → EDUNIT# → ED 18:33
DX: F10.120 Alcohol abuse with intoxication, uncomplicated (principal)
CPT/HCPCS: 36415; 80053; 80320; 83690; 96361; 96374; 99283; A9270; J2060

== ENCOUNTER 2019-05-13 06:34 | Outpatient (CLI) | payer OTHER | END 2019-05-13 06:35 | disposition critical access hospital (66) | LOC: EMS 06:34 | PROVIDERS: ATTEND Surgery | DX: R10.84 Generalized abdominal pain (principal); R11.2 Nausea with vomiting, unspecified; R21 Rash and other nonspecific skin eruption | CPT/HCPCS: A0425; A0429 ==

== ENCOUNTER 2019-05-13 06:51 | Emergency (ER) | payer OTHER ==
--- NOTE | 2019-05-13 07:06 | ED Physician Documentation ---
PD HPI ABD PAIN - Stated complaint Stated Complaint: ABD PX - Chief complaint Chief Complaint: Abd Pain - History obtained from History obtained from: Patient - History of Present Illness Timing - onset: How many hours ago (few), Last night Timing - duration: Hours (few) Timing - details: Abrupt onset, Still present Quality: Cramping, Aching, Pain Location: Epigastric Radiation: No: Chest, Lower back Improved by: No: Vomiting Worsened by: Eating Associated symptoms: Nausea, Vomiting. No: Fever, Hematemesis, Diarrhea, Constipation, Chest pain, Near syncope / syncope Similar symptoms before: Diagnosis (has had vomiting with both alcohol intox, withdrawal and gastritis.) Recently seen: Emergency Dept Review of Systems Constitutional: denies: Fever, Chills, Myalgias Nose: denies: Rhinorrhea / runny nose, Congestion Throat: denies: Sore throat Respiratory: denies: Cough GI: reports: Abdominal Pain, Nausea, Vomiting. denies: Abdominal Swelling, Diarrhea, Hematemesis, Bloody / black stool Neurologic: reports: Generalized weakness. 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: Ovarian cysts, Miscarriage(s) : None HEENT: None Psych: Depression, Other Musculoskeletal: None Derm: None - Past Surgical History Past Surgical History: Yes /REFRIGERATOR MOVER: Dilation and currettage - Present Medications Home Medications: Ambulatory Orders Medication Instructions Recorded Confirmed traZODone [Desyrel] 150 mg PO DAILY 03/18/19 03/18/19 Mirtazapine [Remeron] 30 mg PO DAILY 05/02/19 05/02/19 Ondansetron Odt [Zofran] 4 mg TL Q6H PRN #10 tablet 05/02/19 Famotidine 20 mg PO DAILY #30 tablet 05/13/19 LORazepam [Ativan] 1 mg PO Q6H PRN #15 tablet 05/13/19 Lidocaine Viscous 2% [Xylocaine 5 ml PO Q4H PRN #100 ml 05/13/19 Viscous 2%] Ondansetron Odt [Zofran] 4 mg TL Q6H PRN #20 tablet 05/13/19 - Allergies Allergies/Adverse Reactions: Allergies Allergy/AdvReac Type Severity Reaction Status Date / Time hydrocodone bitartrate * AdvReac Mild Nausea Verified 05/13/19 07:01 [From Lortab] - Social History Does the pt smoke?: No Smoking Status: Never smoker Does the pt drink ETOH?: Yes Does the pt have substance abuse?: No - Immunizations Immunizations are current?: Yes - POLST Patient has POLST: No PD ED PE NORMAL - Vitals Vital signs reviewed: Yes - General General: 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, Well developed/nourished - HEENT HEENT: Moist mucous membranes, Pharynx benign - Neck Neck: Supple, no meningeal sign, No adenopathy - Cardiac Cardiac: RRR, No murmur - Respiratory Respiratory: Clear bilaterally - Abdomen Abdomen: Normal bowel sounds, Soft, Non distended, No organomegaly, Other (tender epigastric without guarding nor percussion tender. ) - Back Back: No CVA TTP - Derm Derm: Normal color, Warm and dry - Extremities Extremities: No tenderness to palpate, Normal ROM s pain, No edema, No calf tenderness / cord - Neuro Neuro: 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, No motor deficit, Normal speech Eye Opening: Spontaneous Motor: Obeys Commands Verbal: Oriented GCS Score: 15 Results - Vitals Vitals: Vital Signs - 24 hr 05/13/19 05/13/19 05/13/19 07:01 07:58 09:30 Temperature 36.7 C 36.9 C Heart Rate 94 104 H 95 Respiratory 18 16 16 Rate Blood Pressure 102/67 106/69 95/54 L O2 Saturation 100 100 100 05/13/19 10:15 Temperature 36.8 C Heart Rate 72 Respiratory 16 Rate Blood Pressure 116/61 O2 Saturation 100 Oxygen O2 Source Room air - Labs Labs: Laboratory Tests 05/13/19 05/13/19 07:40 07:40 WBC 3.3 L RBC 3.55 L Hgb 9.5 L Hct 29.6 L MCV 83.4 MCH 26.8 L MCHC 32.1 RDW 14.2 Plt Count 210 MPV 10.3 Neut # (Auto) 2.1 Lymph # (Auto) 0.7 L [place] # (Auto) 0.4 Eos # (Auto) 0.1 Baso # (Auto) 0.0 Absolute Nucleated RBC 0.00 Nucleated RBC % 0.0 Sodium 135 Potassium 3.6 Chloride 100 L Carbon Dioxide 26 Anion Gap 9.0 BUN 8 Creatinine 0.8 Estimated GFR (MDRD) 84 L Glucose 118 H Calcium 9.3 Magnesium 1.6 L Total Bilirubin 1.2 H AST 46 H ALT 24 Alkaline Phosphatase 45 Total Protein 6.8 Albumin 4.3 Globulin 2.5 Albumin/Globulin Ratio 1.7 Lipase 45 Ethyl Alcohol < 5.0 PD MEDICAL DECISION MAKING - ED course Complexity details: reviewed old records, reviewed results, considered differential (recently seen for alchol withdrawal, and having vomiting. presume alcoholic gastritis. ), d/w patient Departure - Departure Disposition: 01 Home, Self Care Clinical Impression: Vomiting Qualifiers: Vomiting type: unspecified Vomiting Intractability: non-intractable Nausea presence: with nausea Qualified Code(s): R11.2 - Nausea with vomiting, unspecified Gastritis Qualifiers: Gastritis type: alcoholic Chronicity: acute Gastritis bleeding: without bleeding Qualified Code(s): K29.20 - Alcoholic gastritis without bleeding Condition: Stable Record reviewed to determine appropriate education?: Yes Instructions: ED PUD Vs Gastritis, ED Nausea Vomiting Prescriptions: Famotidine 20 mg PO DAILY #30 tablet Lidocaine Viscous 2% [Xylocaine Viscous 2%] 5 ml PO Q4H PRN #100 ml PRN Reason: Pain LORazepam [Ativan] 1 mg PO Q6H PRN #15 tablet PRN Reason: Alcohol Withdrawal Ondansetron Odt [Zofran] 4 mg TL Q6H PRN #20 tablet PRN Reason: Nausea / Vomiting Comments: Small frequent fluids to maintain hydration. [place] diet initially with simple carbs and starches usually are easiest and progress diet as able. Ondansetron if needed for nausea. Lidocaine mixed with antacid such as Maalox or Mylanta if needed for the stomach pain. Use famotidine acid reducing medicine daily for the next 2 to 3 weeks to protect the stomach. Use lorazepam if needed for alcohol withdrawal type symptoms. Recheck if not improved well over the next day. Discharge Date/Time: 05/13/19 10:25
[2019-05-13] MEDS ORDERED: ACETAMINOPHEN 1,000 MG/100 ML 100 ML IV STA (07:20)
[2019-05-13] MEDS ORDERED: ONDANSETRON 4 MG/2 ML VIAL IVP STA (07:20)
[2019-05-13] MEDS ORDERED: FAMOTIDINE 20 MG/2 ML VIAL IVP STA (07:20)
[2019-05-13] MEDS ORDERED: SODIUM CHLORIDE 0.9% 1,000 ML IV ONE (07:20)
[2019-05-13] MEDS ORDERED: LORazepam 2 MG/ML VIAL IVP STA (07:21)
[2019-05-13] MEDS ORDERED: diphenhydrAMINE INJ 50 MG/ML VIAL IVP STA (07:30)
[2019-05-13] MEDS ORDERED: DEXAMETHASONE 10 MG/ML VIAL IVP STA (07:30)
[2019-05-13 07:52] LABS: BASOPHILS % (AUTO) 0.6 %; EOSINOPHILS # (AUTO) 0.1 10^3/uL (0.0-0.7); EOSINOPHILS % (AUTO) 3.3 %; HGB - HEMOGLOBIN 9.5 g/dL (12.0-16.0); LYMPHOCYTES # (AUTO) 0.7 10^3/uL (1.5-3.5); LYMPHOCYTES % (AUTO) 20.4 %; MEAN CORPUSCULAR HEMOGLOBIN 26.8 pg (27.0-31.0); MEAN CORPUSCULAR HGB CONC 32.1 g/dL (32.0-36.0); MEAN CORPUSCULAR VOLUME 83.4 fL (81.0-99.0); MEAN PLATELET VOLUME 10.3 fL (7.9-10.8); MONOCYTES # (AUTO) 0.4 10^3/uL (0.0-1.0); MONOCYTES % (AUTO) 12.2 %; NEUTROPHILS # (AUTO) 2.1 10^3/uL (1.5-6.6); NEUTROPHILS % (AUTO) 62.9 %; PLT - PLATELET COUNT 210 10^3/uL (130-450); RED BLOOD COUNT 3.55 10^6/uL (4.20-5.40); RED CELL DISTRIBUTION WIDTH 14.2 % (12.0-15.0); WHITE BLOOD COUNT 3.3 x10^3/uL (4.8-10.8)
[2019-05-13 08:04] LABS: ALBUMIN 4.3 g/dL (3.2-5.5); ALBUMIN/GLOBULIN RATIO 1.7 (1.0-2.2); ALKALINE PHOSPHATASE 45 IU/L (42-121); ALT ALANINE AMINOTRANSFERASE 24 IU/L (10-60); AST ASPARTATE AMINOTRANSFERASE 46 IU/L (10-42); BILIRUBIN,TOTAL 1.2 mg/dL (0.2-1.0); BUN - BLOOD UREA NITROGEN 8 mg/dL (6-20); CALCIUM 9.3 mg/dL (8.5-10.3); CARBON DIOXIDE - CO2 26 mmol/L (21-32); CHLORIDE 100 mmol/L (101-111); CREATININE 0.8 mg/dL (0.4-1.0); GFR - MDRD 84 (>89); GLUCOSE 118 mg/dL (70-100); LIPASE 45 U/L (22-51); MAGNESIUM 1.6 mg/dL (1.7-2.8); SODIUM 135 mmol/L (135-145); TOTAL PROTEIN 6.8 g/dL (6.7-8.2)
[2019-05-13] MEDS ORDERED: MAGNESIUM SULFATE 2 GRAM 2 GM/50 ML BAG IV ONE (08:42)
[2019-05-13 10:16] VITALS: BP 116/61
== END 2019-05-13 10:25 | disposition home or self-care (01) ==
LOC: EDUNIT# → ED 06:51
DX: K29.20 Alcoholic gastritis without bleeding (principal); R21 Rash and other nonspecific skin eruption
CPT/HCPCS: 36415; 80053; 80320; 83690; 83735; 85025; 96365; 96367; 96375; 99284; 99285; J0131; J1200; J2060

== ENCOUNTER 2019-05-15 19:16 | Outpatient (CLI) | payer OTHER | END 2019-05-15 19:17 | disposition critical access hospital (66) | LOC: EMS 19:16 | PROVIDERS: ATTEND Surgery | DX: R41.82 Altered mental status, unspecified (principal); Z72.89 Other problems related to lifestyle | CPT/HCPCS: A0425; A0429 ==

== ENCOUNTER 2019-05-15 19:30 | Emergency (ER) | payer OTHER ==
[2019-05-15 19:51] LABS: MUDS CUTOFF CONCENTRATIONS CUTOFF CONC BELOW:
[2019-05-15 19:53] LABS: BILIRUBIN,URINE NEGATIVE (NEGATIVE); GLUCOSE, URINE (UA) NEGATIVE (NEGATIVE); KETONES,URINE (UA) NEGATIVE (NEGATIVE); LEUKOCYTE ESTERASE, URINE NEGATIVE (NEGATIVE); NITRITE,URINE NEGATIVE (NEGATIVE); OCCULT BLOOD,URINE SMALL (NEGATIVE); PROTEIN,URINE NEGATIVE (NEGATIVE); UROBILINOGEN,URINE 0.2 (NORMAL) E.U./dL (NORMAL)
[2019-05-15 20:03] LABS: AMPHETAMINE SCREEN,URINE NEGATIVE (NEGATIVE); BENZODIAZEPINES SCREEN, URINE POSITIVE (NEGATIVE); COCAINE SCREEN URINE NEGATIVE (NEGATIVE); METHADONE SCREEN, URINE NEGATIVE (NEGATIVE); METHAMPHETAMINES SCREEN, URINE NEGATIVE (NEGATIVE); OPIATE SCREEN, URINE NEGATIVE (NEGATIVE); OXYCODONE SCREEN, URINE NEGATIVE (NEGATIVE); PROPOXYPHENE SCREEN, URINE NEGATIVE (NEGATIVE); TRICYCLIC ANTIDEPRESSANT,URINE NEGATIVE (NEGATIVE)
[2019-05-15 20:05] LABS: CLARITY,URINE HAZY (CLEAR); HCG UR QUAL NEGATIVE
[2019-05-15 20:08] LABS: BACTERIA,URINE Few /HPF (None Seen); RBC,URINE 0-5 /HPF (0-5); SQUAMOUS EPITHELIAL CELL,UR MANY Squamous (<= Few)
--- NOTE | 2019-05-15 20:10 | ED Physician Documentation ---
PD HPI MHE - Stated complaint Stated Complaint: MHE - Chief complaint Chief Complaint: MHE - History obtained from History obtained from: Patient - History of Present Illness Primary symptom: Suicidal ideation Timing - onset: Unknown Pain level now: 0 Contributing factors: Substance abuse - ETOH Recently seen: Emergency Dept (T+R 2 days ago as well as [address] [facility] ED visits in April 2019 (last month)) - Additional information Additional information: frequent [facility] ED visits for alcohol-related issues. Tonight, patient called 911. Per police report (on chart), on police arrival, patient had no recollection she called 911. She answered few questions with police and EMS, brought to ED. She admits to drinking alcohol heavily tonight. When I ask her if she feels suicidal, she answers in the affirmative but does not have any specific plan. Review of Systems Cardiac: reports: Reviewed and negative Respiratory: reports: Reviewed and negative GI: reports: Nausea. 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, Miscarriage(s) : None HEENT: None Psych: Depression, Other Musculoskeletal: None Derm: None - Past Surgical History Past Surgical History: Yes /CHIEF CREDIT OFFICER: Dilation and currettage - Present Medications Home Medications: Ambulatory Orders Medication Instructions Recorded Confirmed traZODone [Desyrel] 150 mg PO DAILY 03/18/19 05/15/19 Mirtazapine [Remeron] 30 mg PO DAILY 05/02/19 05/15/19 hydrOXYzine HCL [Hydroxyzine HCl] 25 mg PO BID 05/15/19 05/15/19 - Allergies Allergies/Adverse Reactions: Allergies Allergy/AdvReac Type Severity Reaction Status Date / Time hydrocodone bitartrate * AdvReac Mild Hives Verified 05/15/19 19:36 [From Lortab] - Social History Does the pt smoke?: No Smoking Status: Never smoker Does the pt drink ETOH?: Yes Does the pt have substance abuse?: No - Immunizations Immunizations are current?: Yes - POLST Patient has POLST: No PD ED PE NORMAL - Vitals Vital signs reviewed: Yes - General General: 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, Well developed/nourished, Other (slurred speech) - HEENT HEENT: PERRL, EOMI, Moist mucous membranes - Cardiac Cardiac: RRR, No murmur - Respiratory Respiratory: No respiratory distress, Clear bilaterally - Abdomen Abdomen: Soft, Non tender - Derm Derm: Normal color, Warm and dry Results - Vitals Vitals: Vital Signs - 24 hr 05/16/19 05/16/19 05/16/19 06:18 16:10 20:06 Temperature 37.1 C 37.1 C Heart Rate 75 80 70 Respiratory 16 16 16 Rate Blood Pressure 113/77 121/74 117/73 O2 Saturation 97 100 100 Oxygen O2 Source Room air - Labs Labs: Laboratory Tests 05/15/19 05/15/19 05/15/19 19:45 19:45 20:07 WBC 5.5 RBC 3.93 L Hgb 10.4 L Hct 32.8 L MCV 83.5 MCH 26.5 L MCHC 31.7 L RDW 14.5 Plt Count 317 MPV 9.4 Neut # (Auto) 2.7 Lymph # (Auto) 2.5 [place] # (Auto) 0.3 Eos # (Auto) 0.0 Baso # (Auto) 0.1 Absolute Nucleated RBC 0.00 Nucleated RBC % 0.0 Sodium Potassium Chloride Carbon Dioxide Anion Gap BUN Creatinine Estimated GFR (MDRD) Glucose Calcium Total Bilirubin AST ALT Alkaline Phosphatase Total Protein Albumin Globulin Albumin/Globulin Ratio Lipase TSH Urine Color YELLOW Urine Clarity HAZY Urine pH 7.0 Ur Specific [place] 1.015 Urine Protein NEGATIVE Urine Glucose (UA) NEGATIVE Urine Ketones NEGATIVE Urine Occult Blood SMALL H Urine Nitrite NEGATIVE Urine Bilirubin NEGATIVE Urine Urobilinogen 0.2 (NORMAL) Ur Leukocyte Esterase NEGATIVE Urine RBC 0-5 Urine WBC 4-5 Ur Squamous Epith Cells MANY Squamous H Urine Bacteria Few Ur Microscopic Review INDICATED Urine Culture Comments NOT INDICATED Urine HCG, Qual NEGATIVE Salicylates Urine Opiates Screen NEGATIVE Ur Oxycodone Screen NEGATIVE Urine Methadone Screen NEGATIVE Ur Propoxyphene Screen NEGATIVE Acetaminophen Ur Barbiturates Screen NEGATIVE Ur Tricyclics Screen NEGATIVE Ur Phencyclidine Scrn NEGATIVE Ur Amphetamine Screen NEGATIVE U Methamphetamines Scrn NEGATIVE U Benzodiazepines Scrn POSITIVE H Urine Cocaine Screen NEGATIVE U Cannabinoids Screen NEGATIVE Ethyl Alcohol 05/15/19 05/15/19 05/16/19 20:07 20:07 08:15 WBC RBC Hgb Hct MCV MCH MCHC RDW Plt Count MPV Neut # (Auto) Lymph # (Auto) [place] # (Auto) Eos # (Auto) Baso # (Auto) Absolute Nucleated RBC Nucleated RBC % Sodium 144 Potassium 3.2 L Chloride 107 Carbon Dioxide 28 Anion Gap 9.0 BUN < 5 L Creatinine 0.8 Estimated GFR (MDRD) 84 L Glucose 98 Calcium 7.9 L Total Bilirubin 0.4 AST 35 ALT 19 Alkaline Phosphatase 40 L Total Protein 6.3 L Albumin 3.8 Globulin 2.5 Albumin/Globulin Ratio 1.5 Lipase 52 H TSH 1.30 Urine Color Urine Clarity Urine pH Ur Specific [place] Urine Protein Urine Glucose (UA) Urine Ketones Urine Occult Blood Urine Nitrite Urine Bilirubin Urine Urobilinogen Ur Leukocyte Esterase Urine RBC Urine WBC Ur Squamous Epith Cells Urine Bacteria Ur Microscopic Review Urine Culture Comments Urine HCG, Qual Salicylates < 6.0 Urine Opiates Screen Ur Oxycodone Screen Urine Methadone Screen Ur Propoxyphene Screen Acetaminophen < 10 L Ur Barbiturates Screen Ur Tricyclics Screen Ur Phencyclidine Scrn Ur Amphetamine Screen U Methamphetamines Scrn U Benzodiazepines Scrn Urine Cocaine Screen U Cannabinoids Screen Ethyl Alcohol 370.1 80.2 PD MEDICAL DECISION MAKING - ED course Complexity details: reviewed old records, reviewed results, re-evaluated patient, considered differential, d/w patient Departure - Departure Disposition: 65 Psych Hosp/Unit DC/Xfer Clinical Impression: Alcoholic intoxication Qualifiers: Complication of substance-induced condition: uncomplicated Qualified Code(s): F10.920 - Alcohol use, unspecified with intoxication, uncomplicated Condition: Good
[2019-05-15 20:11] LABS: BASOPHILS # (AUTO) 0.1 10^3/uL (0.0-0.1); BASOPHILS % (AUTO) 1.3 %; EOSINOPHILS % (AUTO) 0.2 %; HGB - HEMOGLOBIN 10.4 g/dL (12.0-16.0); LYMPHOCYTES # (AUTO) 2.5 10^3/uL (1.5-3.5); LYMPHOCYTES % (AUTO) 45.3 %; MEAN CORPUSCULAR HEMOGLOBIN 26.5 pg (27.0-31.0); MEAN CORPUSCULAR HGB CONC 31.7 g/dL (32.0-36.0); MEAN CORPUSCULAR VOLUME 83.5 fL (81.0-99.0); MEAN PLATELET VOLUME 9.4 fL (7.9-10.8); MONOCYTES # (AUTO) 0.3 10^3/uL (0.0-1.0); MONOCYTES % (AUTO) 4.7 %; NEUTROPHILS # (AUTO) 2.7 10^3/uL (1.5-6.6); NEUTROPHILS % (AUTO) 48.3 %; PLT - PLATELET COUNT 317 10^3/uL (130-450); RED BLOOD COUNT 3.93 10^6/uL (4.20-5.40); RED CELL DISTRIBUTION WIDTH 14.5 % (12.0-15.0); WHITE BLOOD COUNT 5.5 x10^3/uL (4.8-10.8)
[2019-05-15 20:34] LABS: ACETAMINOPHEN < 10 ug/mL (10-30); ALBUMIN 3.8 g/dL (3.2-5.5); ALBUMIN/GLOBULIN RATIO 1.5 (1.0-2.2); ALKALINE PHOSPHATASE 40 IU/L (42-121); ALT ALANINE AMINOTRANSFERASE 19 IU/L (10-60); AST ASPARTATE AMINOTRANSFERASE 35 IU/L (10-42); BILIRUBIN,TOTAL 0.4 mg/dL (0.2-1.0); BUN - BLOOD UREA NITROGEN < 5 mg/dL (6-20); CALCIUM 7.9 mg/dL (8.5-10.3); CARBON DIOXIDE - CO2 28 mmol/L (21-32); CHLORIDE 107 mmol/L (101-111); CREATININE 0.8 mg/dL (0.4-1.0); GFR - MDRD 84 (>89); GLUCOSE 98 mg/dL (70-100); LIPASE 52 U/L (22-51); SALICYLATE < 6.0 mg/dL; SODIUM 144 mmol/L (135-145); TOTAL PROTEIN 6.3 g/dL (6.7-8.2)
[2019-05-15] MEDS ORDERED: FOLIC ACID INJ 1 MG, THIAMINE INJ 100 MG, MAGNESIUM SULFATE 2 GM, MULTIVITAMIN 10 ML in... IV STA ×5 (20:44)
[2019-05-15] MEDS ORDERED: LORazepam 1 MG TABLET PO STA (21:01)
[2019-05-15] MEDS ORDERED: ONDANSETRON ODT 4 MG TABLET TL STA (21:22)
--- NOTE | 2019-05-16 07:03 | ED Physician Documentation ---
ED Addendum - Addendum Addendum: Pt signed out to me from Dr. Puentes. 28F who presents due to alcohol intoxication. She verbalized some vague suicidal ideation when intoxicated, but without a plan. Alcohol was 370 at 20:00. Remainder of work up unremarkable. Plan is to re-evaluate for sobriety and suicidal ideation. Seems appropriate for discharge home if not suicidal. I reevaluated the patient, she does not really engage with me, she endorses that she was suicidal last night, she states she is not suicidal now. She continues to drink alcohol heavily, and she states she wants to quit but she is unable to verbalize any plan how she is going to do this. Sounds like she oftentimes get suicidal when she continues to drink and she is been drinking quite heavily. Social work was consulted and evaluated the patient, and was concerned for her safety given her pattern of drinking and suicidal ideation. DCR was dispatched, they have out of the patient and felt that she warranted transfer for detox. This was arranged, patient did require several dose of benzodiazepines withdrawal symptoms in the mean time. At the time of transfer to [facility] she had stable vital signs, she was nontoxic-appearing.
[2019-05-16] MEDS ORDERED: ONDANSETRON ODT 4 MG TABLET TL STA (10:34)
[2019-05-16] MEDS ORDERED: LORazepam 1 MG TABLET PO STA (10:52)
[2019-05-16] MEDS ORDERED: POTASSIUM CHLORIDE 20 MEQ TABLET PO STA (16:01)
[2019-05-16] MEDS ORDERED: chlordiazePOXIDE 25 MG CAPSULE PO STA (16:07)
[2019-05-16] MEDS ORDERED: traZODone 50 MG TABLET PO STA (19:47)
[2019-05-16] MEDS ORDERED: MIRTAZAPINE 15 MG TABLET PO STA (19:47)
[2019-05-17 07:48] VITALS: BP 110/70
== END 2019-05-17 09:20 ==
LOC: EDUNIT# → ED 19:30
DX: F10.920 Alcohol use, unspecified with intoxication, uncomplicated (principal); Y90.8 Blood alcohol level of 240 mg/100 ml or more; F32.9 Major depressive disorder, single episode, unspecified; R45.851 Suicidal ideations
CPT/HCPCS: 36415; 80320; 80329; 81001; 81025; 83690; 99284; 99285; A9270; J8499; Q0162; 80053; 80306; 80307; 81003; 84443; 85025; 87086

== ENCOUNTER 2019-06-05 23:57 | Outpatient (CLI) | payer OTHER | END 2019-06-05 23:58 | disposition critical access hospital (66) | LOC: EMS 23:57 | PROVIDERS: ATTEND Surgery | DX: Z03.89 Encounter for observation for other suspected diseases and conditions ruled out (principal) | CPT/HCPCS: A0425; A0429 ==

== ENCOUNTER 2019-06-06 00:11 | Emergency (ER) | payer OTHER ==
--- NOTE | 2019-06-06 00:16 | ED Physician Documentation ---
History of Present Illness - Stated complaint Stated Complaint: SI - Chief complaint Chief Complaint: MHE - History obtained from History obtained from: Patient (Patient is a 33-year-old female who reports that she is having suicidal thoughts and admits to drinking heavily tonight currently she is voluntary but she does admit to having suicidal thoughts.Apparently she is well-known to the nursing staff here.The patient's been evaluated by the [facility] and once the patient is clinically sober she will be reevaluated the plan is to have the patient placed for detox.), EMS Review of Systems Unable to obtain: Intoxicated PD PAST MEDICAL HISTORY - Past Medical History Cardiovascular: None Respiratory: None Neuro: Other Endocrine/Autoimmune: None GI: None MANAGER SOCIAL SERVICES: Ovarian cysts, Miscarriage(s) : None HEENT: None Psych: Depression, Other Musculoskeletal: None Derm: None - Past Surgical History Past Surgical History: Yes /MANAGER SOCIAL SERVICES: Dilation and currettage - Present Medications Home Medications: Ambulatory Orders Medication Instructions Recorded Confirmed traZODone [Desyrel] 150 mg PO DAILY 03/18/19 05/15/19 Mirtazapine [Remeron] 30 mg PO DAILY 05/02/19 05/15/19 hydrOXYzine HCL [Hydroxyzine HCl] 25 mg PO BID 05/15/19 05/15/19 - Allergies Allergies/Adverse Reactions: Allergies Allergy/AdvReac Type Severity Reaction Status Date / Time hydrocodone bitartrate * AdvReac Mild Hives Verified 05/15/19 19:36 [From Lortab] - Social History Does the pt smoke?: No Smoking Status: Never smoker Does the pt drink ETOH?: Yes Does the pt have substance abuse?: No - Immunizations Immunizations are current?: Yes - POLST Patient has POLST: No PD ED PE NORMAL - Vitals Vital signs reviewed: Yes - General General: 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, No acute distress - HEENT HEENT: PERRL - Neck Neck: Supple, no meningeal sign - Cardiac Cardiac: RRR, No murmur - Respiratory Respiratory: Clear bilaterally - Abdomen Abdomen: Normal bowel sounds, Soft, Non tender, Non distended - Derm Derm: Warm and dry - Extremities Extremities: No deformity - Neuro Neuro: 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 - Psych Psych: Other (Patient has a flat affect, she is depressed) Results - Vitals Vitals: Vital Signs - 24 hr 06/06/19 06/06/19 06/06/19 00:19 04:13 06:10 Temperature 36.7 C 36.6 C Heart Rate 99 110 H 114 H Respiratory 18 16 16 Rate Blood Pressure 131/86 H 118/76 103/65 O2 Saturation 100 99 98 Oxygen O2 Source Room air - Labs Labs: Laboratory Tests 06/06/19 06/06/19 06/06/19 00:40 00:40 00:40 WBC 6.7 RBC 4.43 Hgb 11.4 L Hct 36.1 L MCV 81.5 MCH 25.7 L MCHC 31.6 L RDW 14.8 Plt Count 374 MPV 9.0 Neut # (Auto) 3.4 Lymph # (Auto) 2.6 [place] # (Auto) 0.5 Eos # (Auto) 0.0 Baso # (Auto) 0.1 Absolute Nucleated RBC 0.00 Nucleated RBC % 0.0 Sodium 142 Potassium 3.8 Chloride 102 Carbon Dioxide 24 Anion Gap 16.0 H BUN 8 Creatinine 0.8 Estimated GFR (MDRD) 84 L Glucose 91 Calcium 8.7 TSH 6.17 H Salicylates < 6.0 Acetaminophen < 10 L Ethyl Alcohol 318.1 PD MEDICAL DECISION MAKING - ED course Complexity details: other (The patient's been evaluated by the designated mental health provider to currently the patient's intoxicated under the influence of alcohol she will be reevaluated when she is clinically sober the patient is currently voluntary she admits to having suicidal thoughts plan is for the patient when she becomes clinically sober to be transferred for to inpatient detox and rehab.) Departure - Departure Disposition: 65 Psych Hosp/Unit DC/Xfer Clinical Impression: Substance abuse Depression Qualifiers: Depression Type: other depression Qualified Code(s): F32.89 - Other specified depressive episodes Alcohol intoxication Qualifiers: Complication of substance-induced condition: with unspecified complication Qualified Code(s): F10.929 - Alcohol use, unspecified with intoxication, unspecified Condition: Fair
[2019-06-06 00:43] LABS: BASOPHILS # (AUTO) 0.1 10^3/uL (0.0-0.1); BASOPHILS % (AUTO) 1.8 %; EOSINOPHILS % (AUTO) 0.4 %; HGB - HEMOGLOBIN 11.4 g/dL (12.0-16.0); LYMPHOCYTES # (AUTO) 2.6 10^3/uL (1.5-3.5); LYMPHOCYTES % (AUTO) 39.4 %; MEAN CORPUSCULAR HEMOGLOBIN 25.7 pg (27.0-31.0); MEAN CORPUSCULAR HGB CONC 31.6 g/dL (32.0-36.0); MEAN CORPUSCULAR VOLUME 81.5 fL (81.0-99.0); MONOCYTES # (AUTO) 0.5 10^3/uL (0.0-1.0); MONOCYTES % (AUTO) 7.6 %; NEUTROPHILS # (AUTO) 3.4 10^3/uL (1.5-6.6); NEUTROPHILS % (AUTO) 50.5 %; PLT - PLATELET COUNT 374 10^3/uL (130-450); RED BLOOD COUNT 4.43 10^6/uL (4.20-5.40); RED CELL DISTRIBUTION WIDTH 14.8 % (12.0-15.0); WHITE BLOOD COUNT 6.7 x10^3/uL (4.8-10.8)
[2019-06-06 00:57] LABS: ACETAMINOPHEN < 10 ug/mL (10-30); BUN - BLOOD UREA NITROGEN 8 mg/dL (6-20); CALCIUM 8.7 mg/dL (8.5-10.3); CARBON DIOXIDE - CO2 24 mmol/L (21-32); CHLORIDE 102 mmol/L (101-111); CREATININE 0.8 mg/dL (0.4-1.0); GFR - MDRD 84 (>89); GLUCOSE 91 mg/dL (70-100); SALICYLATE < 6.0 mg/dL; SODIUM 142 mmol/L (135-145)
[2019-06-06] MEDS ORDERED: ONDANSETRON ODT 4 MG TABLET TL STA ×2 (01:41→02:53)
[2019-06-06] MEDS ORDERED: PROMETHAZINE 25 MG TABLET PO STA (05:37)
[2019-06-06] MEDS ORDERED: PROMETHAZINE 25 MG TABLET ONE (05:40)
[2019-06-06 06:20] LABS: MUDS CUTOFF CONCENTRATIONS CUTOFF CONC BELOW:
[2019-06-06 06:27] LABS: BILIRUBIN,URINE NEGATIVE (NEGATIVE); GLUCOSE, URINE (UA) NEGATIVE (NEGATIVE); KETONES,URINE (UA) NEGATIVE (NEGATIVE); LEUKOCYTE ESTERASE, URINE NEGATIVE (NEGATIVE); NITRITE,URINE NEGATIVE (NEGATIVE); OCCULT BLOOD,URINE NEGATIVE (NEGATIVE); PROTEIN,URINE 100 mg/dL (NEGATIVE); UROBILINOGEN,URINE 0.2 (NORMAL) E.U./dL (NORMAL)
[2019-06-06 06:28] LABS: CLARITY,URINE CLEAR (CLEAR); HCG UR QUAL NEGATIVE
[2019-06-06 06:36] LABS: BACTERIA,URINE Few /HPF (None Seen); MUCUS,URINE Few Strands; RBC,URINE 0-5 /HPF (0-5); SQUAMOUS EPITHELIAL CELL,UR MOD Squamous (<= Few)
[2019-06-06 06:37] LABS: AMPHETAMINE SCREEN,URINE NEGATIVE (NEGATIVE); BENZODIAZEPINES SCREEN, URINE NEGATIVE (NEGATIVE); COCAINE SCREEN URINE NEGATIVE (NEGATIVE); METHADONE SCREEN, URINE NEGATIVE (NEGATIVE); METHAMPHETAMINES SCREEN, URINE NEGATIVE (NEGATIVE); OPIATE SCREEN, URINE NEGATIVE (NEGATIVE); OXYCODONE SCREEN, URINE NEGATIVE (NEGATIVE); PROPOXYPHENE SCREEN, URINE NEGATIVE (NEGATIVE); TRICYCLIC ANTIDEPRESSANT,URINE POSITIVE (NEGATIVE)
[2019-06-06] MEDS ORDERED: LORazepam 1 MG TABLET PO STA (07:24)
[2019-06-06] MEDS ORDERED: SUCRALFATE 1 GM/10 ML UDC PO STA (09:18)
[2019-06-06] MEDS ORDERED: PANTOPRAZOLE 40 MG TABLET PO STA (09:18)
[2019-06-06] MEDS ORDERED: FOLIC ACID INJ 1 MG, THIAMINE INJ 100 MG, MAGNESIUM SULFATE 2 GM, MULTIVITAMIN 10 ML in... IV STA ×5 (10:34)
[2019-06-06] MEDS ORDERED: ACETAMINOPHEN 325 MG TABLET PO STA (14:24)
[2019-06-06] MEDS ORDERED: diphenhydrAMINE 25 MG CAPSULE PO STA (16:15)
[2019-06-06] MEDS ORDERED: hydrOXYzine PAMOATE 25 MG CAPSULE PO STA (17:12)
[2019-06-06] MEDS ORDERED: LORazepam 2 MG/ML VIAL IVP STA (17:25)
--- NOTE | 2019-06-06 18:10 | ED Physician Documentation ---
ED Addendum - Addendum Addendum: 06/06/19 18:[address] Cardoza, briefly this is a young woman with severe alcoholism, but because she was felt potentially appropriate for [place] [facility] evaluated her and arrange for her to go to [place] as an involuntary patient. Unfortunately she would probably not be transported till tomorrow due to a delay in getting her ready to go that far.
[2019-06-06] MEDS ORDERED: traZODone 50 MG TABLET PO STA (19:20)
[2019-06-06] MEDS ORDERED: MIRTAZAPINE 15 MG TABLET PO STA (19:20)
[2019-06-07 06:33] VITALS: BP 115/75
== END 2019-06-07 09:14 ==
LOC: EDUNIT# → ED 00:11
DX: F32.89 Other specified depressive episodes (principal); R45.851 Suicidal ideations; F10.229 Alcohol dependence with intoxication, unspecified; F10.239 Alcohol dependence with withdrawal, unspecified; L29.9 Pruritus, unspecified
CPT/HCPCS: 36415; 80048; 80320; 80329; 81001; 81025; 84443; 85025; 96365; 96366; 96375; 99281; 99285; A9270; J2060; J3411; J8499; Q0162; Q0169; 80306; 80307; 81003; 87086

== ENCOUNTER 2020-02-01 11:01 | Outpatient (CLI) | payer OTHER | END 2020-02-01 11:02 | disposition critical access hospital (66) | LOC: EMS 11:01 | PROVIDERS: ATTEND Surgery | DX: O20.8 Other hemorrhage in early pregnancy (principal); Z3A.00 Weeks of gestation of pregnancy not specified | CPT/HCPCS: A0425; A0429 ==

== ENCOUNTER 2020-02-01 11:17 | Emergency (ER) | payer OTHER ==
--- NOTE | 2020-02-01 11:34 | ED Physician Documentation ---
PD HPI MHE - Stated complaint Stated Complaint: ETOH - Chief complaint Chief Complaint: MHE - History obtained from History obtained from: Patient - Additional information Additional information: 29 yo F who presents via [facility] for M[facility]OS. Pt was drunk on scene and there was concern she may have taken an excess of Unisom (possibly up to 22 tablets). Pt states she is intoxicated and has been drinking alcohol since last night, but denies attempting to hurt herself. She thinks she likely dropped the Unisom tablets and only recalls taking 1 last night. Denies suicidal thoughts. Reports she is 17 weeks and had been sober but recently relapsed on etoh. Denies any other drug use. Denies injuries or falls. States she is safe at home though has poor relationship with her mother in law. Her is currently deployed. She has a dtr, Salas, who she states is safe and currently with family members. Review of Systems Unable to obtain: Intoxicated (Pt intoxicated but conversational.) Constitutional: reports: Reviewed and negative Eyes: reports: Reviewed and negative Ears: reports: Reviewed and negative Nose: reports: Reviewed and negative Throat: reports: Reviewed and negative Cardiac: reports: Reviewed and negative Respiratory: reports: Reviewed and negative GI: reports: Reviewed and negative : reports: Other () Skin: reports: Reviewed and negative Musculoskeletal: reports: Reviewed and negative Neurologic: reports: Reviewed and negative Psychiatric: reports: Reviewed and negative PD PAST MEDICAL HISTORY - Past Medical History Past Medical History: Yes Cardiovascular: None Respiratory: None Neuro: Other Endocrine/Autoimmune: None GI: None 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: Ovarian cysts, Miscarriage(s) : None HEENT: None Psych: Depression, Other Musculoskeletal: None Derm: None - Past Surgical History Past Surgical History: Yes /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: Dilation and currettage - Present Medications Home Medications: Ambulatory Orders Medication Instructions Recorded Confirmed traZODone [Desyrel] 150 mg PO DAILY 03/18/19 06/06/19 Mirtazapine [Remeron] 30 mg PO DAILY 05/02/19 06/06/19 - Allergies Allergies/Adverse Reactions: Allergies Allergy/AdvReac Type Severity Reaction Status Date / Time metoclopramide [From Reglan] Allergy Nausea Verified 02/01/20 11:24 hydrocodone bitartrate * AdvReac Mild Hives Verified 02/01/20 11:24 [From Lortab] - Social History Does the pt smoke?: No Smoking Status: Never smoker Does the pt drink ETOH?: Yes Does the pt have substance abuse?: No - Immunizations Immunizations are current?: Yes - POLST Patient has POLST: No PD ED PE NORMAL - Vitals Vital signs reviewed: Yes - General General: 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, Other (intoxicated) - HEENT HEENT: Atraumatic, PERRL, EOMI - Neck Neck: Supple, no meningeal sign - Cardiac Cardiac: RRR - Respiratory Respiratory: No respiratory distress, Clear bilaterally - Abdomen Abdomen: Normal bowel sounds, Soft, Non tender, Non distended, Other (gravid abdomen, 3cm below umbilicus) - Derm Derm: Normal color, Warm and dry, No rash - Neuro Neuro: 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 Eye Opening: Spontaneous Motor: Obeys Commands Verbal: Oriented GCS Score: 15 - Psych Psych: Normal mood, Normal affect Results - Vitals Vitals: Vital Signs - 24 hr 02/01/20 02/01/20 11:24 15:18 Temperature 36.7 C Heart Rate 104 H 86 Respiratory 20 20 Rate Blood Pressure 115/72 98/62 O2 Saturation 99 100 Oxygen O2 Source Room air - Labs Labs: Laboratory Tests 02/01/20 02/01/20 02/01/20 11:30 11:45 11:45 WBC 8.8 RBC 3.77 L Hgb 10.1 L Hct 30.4 L MCV 80.6 L MCH 26.8 L MCHC 33.2 RDW 15.0 Plt Count 412 MPV 9.1 Neut # (Auto) 6.4 Lymph # (Auto) 2.0 Jay # (Auto) 0.3 Eos # (Auto) 0.0 Baso # (Auto) 0.1 Absolute Nucleated RBC 0.00 Nucleated RBC % 0.0 Sodium 144 Potassium 3.4 L Chloride 107 Carbon Dioxide 24 Anion Gap 13.0 BUN < 5 L Creatinine 0.7 Estimated GFR (MDRD) 98 Glucose 114 H Calcium 8.4 L Total Bilirubin 0.4 AST 45 H ALT 11 Alkaline Phosphatase 41 L Total Protein 7.4 Albumin 3.9 Globulin 3.5 Albumin/Globulin Ratio 1.1 Lipase 28 TSH Urine Color YELLOW Urine Clarity HAZY Urine pH 6.0 Ur Specific [place] 1.010 Urine Protein NEGATIVE Urine Glucose (UA) NEGATIVE Urine Ketones NEGATIVE Urine Occult Blood NEGATIVE Urine Nitrite NEGATIVE Urine Bilirubin NEGATIVE Urine Urobilinogen 0.2 (NORMAL) Ur Leukocyte Esterase SMALL H Urine RBC 0-5 Urine WBC 6-10 H Ur Squamous Epith Cells MOD Squamous H Urine Bacteria Few Ur Microscopic Review INDICATED Urine Culture Comments NOT INDICATED Urine HCG, Qual POSITIVE Salicylates < 6.0 Urine Opiates Screen NEGATIVE Ur Oxycodone Screen NEGATIVE Urine Methadone Screen NEGATIVE Ur Propoxyphene Screen NEGATIVE Acetaminophen < 10 L Ur Barbiturates Screen NEGATIVE Ur Tricyclics Screen NEGATIVE Ur Phencyclidine Scrn NEGATIVE Ur Amphetamine Screen NEGATIVE U Methamphetamines Scrn NEGATIVE U Benzodiazepines Scrn NEGATIVE Urine Cocaine Screen NEGATIVE U Cannabinoids Screen NEGATIVE Ethyl Alcohol 416.0 02/01/20 11:45 WBC RBC Hgb Hct MCV MCH MCHC RDW Plt Count MPV Neut # (Auto) Lymph # (Auto) Jay # (Auto) Eos # (Auto) Baso # (Auto) Absolute Nucleated RBC Nucleated RBC % Sodium Potassium Chloride Carbon Dioxide Anion Gap BUN Creatinine Estimated GFR (MDRD) Glucose Calcium Total Bilirubin AST ALT Alkaline Phosphatase Total Protein Albumin Globulin Albumin/Globulin Ratio Lipase TSH 0.74 Urine Color Urine Clarity Urine pH Ur Specific [place] Urine Protein Urine Glucose (UA) Urine Ketones Urine Occult Blood Urine Nitrite Urine Bilirubin Urine Urobilinogen Ur Leukocyte Esterase Urine RBC Urine WBC Ur Squamous Epith Cells Urine Bacteria Ur Microscopic Review Urine Culture Comments Urine HCG, Qual Salicylates Urine Opiates Screen Ur Oxycodone Screen Urine Methadone Screen Ur Propoxyphene Screen Acetaminophen Ur Barbiturates Screen Ur Tricyclics Screen Ur Phencyclidine Scrn Ur Amphetamine Screen U Methamphetamines Scrn U Benzodiazepines Scrn Urine Cocaine Screen U Cannabinoids Screen Ethyl Alcohol PD MEDICAL DECISION MAKING - ED course Complexity details: reviewed old records, reviewed results, re-evaluated patient, d/w patient, d/w siebel consultant ED course: 29 yo F w/ pmh of alcoholism who presented via [place] [facility] for MARCOS. Pt was intoxicated on scene and there was concern for possible overdose attempt w/ Unisom though patient denies. On exam here, pt is intoxicated but conversati onal, awake, and alert. She denies suicide attempt but admits to heavy alcohol use. After d/w social work this patient will be detained under [place] and social work will work on transfer to appropriate facility. Patient currently resting calmly. Will monitor for alcohol withdrawal pending transfer. Departure - Departure Clinical Impression: Alcoholic intoxication Qualifiers: Complication of substance-induced condition: uncomplicated Qualified Code(s): F10.920 - Alcohol use, unspecified with intoxication, uncomplicated Condition: Good
[2020-02-01 11:46] LABS: MUDS CUTOFF CONCENTRATIONS CUTOFF CONC BELOW:
[2020-02-01 11:51] LABS: BILIRUBIN,URINE NEGATIVE (NEGATIVE); GLUCOSE, URINE (UA) NEGATIVE (NEGATIVE); KETONES,URINE (UA) NEGATIVE (NEGATIVE); LEUKOCYTE ESTERASE, URINE SMALL (NEGATIVE); NITRITE,URINE NEGATIVE (NEGATIVE); OCCULT BLOOD,URINE NEGATIVE (NEGATIVE); PROTEIN,URINE NEGATIVE (NEGATIVE); UROBILINOGEN,URINE 0.2 (NORMAL) E.U./dL (NORMAL)
[2020-02-01 11:54] LABS: CLARITY,URINE HAZY (CLEAR); HCG UR QUAL POSITIVE
[2020-02-01 11:56] LABS: BASOPHILS # (AUTO) 0.1 10^3/uL (0.0-0.1); BASOPHILS % (AUTO) 0.8 %; EOSINOPHILS % (AUTO) 0.1 %; HGB - HEMOGLOBIN 10.1 g/dL (12.0-16.0); LYMPHOCYTES % (AUTO) 22.6 %; MEAN CORPUSCULAR HEMOGLOBIN 26.8 pg (27.0-31.0); MEAN CORPUSCULAR HGB CONC 33.2 g/dL (32.0-36.0); MEAN CORPUSCULAR VOLUME 80.6 fL (81.0-99.0); MEAN PLATELET VOLUME 9.1 fL (7.9-10.8); MONOCYTES # (AUTO) 0.3 10^3/uL (0.0-1.0); MONOCYTES % (AUTO) 3.3 %; NEUTROPHILS # (AUTO) 6.4 10^3/uL (1.5-6.6); NEUTROPHILS % (AUTO) 72.6 %; PLT - PLATELET COUNT 412 10^3/uL (130-450); RED BLOOD COUNT 3.77 10^6/uL (4.20-5.40); WHITE BLOOD COUNT 8.8 x10^3/uL (4.8-10.8)
[2020-02-01 12:02] LABS: AMPHETAMINE SCREEN,URINE NEGATIVE (NEGATIVE); BACTERIA,URINE Few /HPF (None Seen); BENZODIAZEPINES SCREEN, URINE NEGATIVE (NEGATIVE); COCAINE SCREEN URINE NEGATIVE (NEGATIVE); METHADONE SCREEN, URINE NEGATIVE (NEGATIVE); METHAMPHETAMINES SCREEN, URINE NEGATIVE (NEGATIVE); OPIATE SCREEN, URINE NEGATIVE (NEGATIVE); OXYCODONE SCREEN, URINE NEGATIVE (NEGATIVE); PROPOXYPHENE SCREEN, URINE NEGATIVE (NEGATIVE); RBC,URINE 0-5 /HPF (0-5); SQUAMOUS EPITHELIAL CELL,UR MOD Squamous (<= Few); TRICYCLIC ANTIDEPRESSANT,URINE NEGATIVE (NEGATIVE)
[2020-02-01 12:12] LABS: ACETAMINOPHEN < 10 ug/mL (10-30); ALBUMIN 3.9 g/dL (3.2-5.5); ALBUMIN/GLOBULIN RATIO 1.1 (1.0-2.2); ALKALINE PHOSPHATASE 41 IU/L (42-121); ALT ALANINE AMINOTRANSFERASE 11 IU/L (10-60); AST ASPARTATE AMINOTRANSFERASE 45 IU/L (10-42); BILIRUBIN,TOTAL 0.4 mg/dL (0.2-1.0); BUN - BLOOD UREA NITROGEN < 5 mg/dL (6-20); CALCIUM 8.4 mg/dL (8.5-10.3); CARBON DIOXIDE - CO2 24 mmol/L (21-32); CHLORIDE 107 mmol/L (101-111); CREATININE 0.7 mg/dL (0.4-1.0); GLUCOSE 114 mg/dL (70-100); LIPASE 28 U/L (22-51); SALICYLATE < 6.0 mg/dL; SODIUM 144 mmol/L (135-145); TOTAL PROTEIN 7.4 g/dL (6.7-8.2)
[2020-02-01 18:39] VITALS: BP 122/93
[2020-02-01] MEDS ORDERED: ONDANSETRON ODT 4 MG TABLET TL STA (18:51)
== END 2020-02-01 20:15 | disposition left against medical advice (07) ==
LOC: EDUNIT# → ED 11:17
DX: O99.312 Alcohol use complicating pregnancy, second trimester (principal); F10.229 Alcohol dependence with intoxication, unspecified; Z3A.17 17 weeks gestation of pregnancy; Z20.828 Contact with and (suspected) exposure to other viral communicable diseases; Z53.20 Procedure and treatment not carried out because of patient's decision for unspecified reasons
CPT/HCPCS: 36415; 80320; 80329; 81001; 81025; 83690; 87635; 93005; 99283; Q0162; 80053; 80306; 80307; 81003; 84443; 85025; 87086

== ENCOUNTER 2020-02-02 01:40 | Emergency (ER) | payer OTHER ==
--- NOTE | 2020-02-02 01:46 | ED Physician Documentation ---
History of Present Illness - Stated complaint Stated Complaint: MHE - History obtained from History obtained from: Patient, Police - History of Present Illness Timing: Chronic Pain level max: 0 Pain level now: 0 - Additonal information Additional information: Patient eloped from this ED few hours ago. She initially had been brought to ED by police, found intoxicated with her daughter at scene but no other adult; there was a question of unisom overdose which patient denied (please see chart from previous ED visit for details). Patient says she is approximately 17 weeks . She underwent social work consult and recommendation was to hold patient in ED until she could be medically cleared, which would involve etoh level below 0.08; patient's initial etoh level was 416. Unfortunately, patient eloped (in paper scrubs) and managed to get all the way back to her house in [place] when police then found her and brought her back to ED. Patient admits to me that she had a beer shortly after she got back home. Patient denies SI on my HPI. She is calm and cooperative. 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: Ovarian cysts, Miscarriage(s) : None HEENT: None Psych: Depression, Other Musculoskeletal: None Derm: None - Past Surgical History Past Surgical History: Yes /YOUTH ACCOMMODATION SUPPORT WORKER: Dilation and currettage - Present Medications Home Medications: Ambulatory Orders Medication Instructions Recorded Confirmed traZODone [Desyrel] 150 mg PO DAILY 03/18/19 06/06/19 Mirtazapine [Remeron] 30 mg PO DAILY 05/02/19 06/06/19 - Allergies Allergies/Adverse Reactions: Allergies Allergy/AdvReac Type Severity Reaction Status Date / Time metoclopramide [From Reglan] Allergy Nausea Verified 02/01/20 11:24 hydrocodone bitartrate * AdvReac Mild Hives Verified 02/01/20 11:24 [From Lortab] - Social History Does the pt smoke?: No Smoking Status: Never smoker Does the pt drink ETOH?: Yes Does the pt have substance abuse?: No - Immunizations Immunizations are current?: Yes - POLST Patient has POLST: No PD ED PE NORMAL - Vitals Vital signs reviewed: Yes - General General: 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, No acute distress, Well developed/nourished - HEENT HEENT: Atraumatic, Moist mucous membranes - Cardiac Cardiac: No murmur - Respiratory Respiratory: No respiratory distress, Clear bilaterally - Abdomen Abdomen: Soft, Non tender - Back Back: No CVA TTP - Neuro Eye Opening: Spontaneous Motor: Obeys Commands Verbal: Oriented GCS Score: 15 PD ED PE EXPANDED - Cardiac Cardiac: Tachy, Regular Rhythm Results - Vitals Vitals: Vital Signs - 24 hr 02/02/20 02/02/20 02/02/20 08:13 09:30 10:00 Heart Rate 84 80 103 H Respiratory 16 23 16 Rate Blood Pressure 115/69 96/61 93/55 L O2 Saturation 98 100 100 02/02/20 02/02/20 16:00 18:00 Heart Rate 88 86 Respiratory 21 15 Rate Blood Pressure 97/53 L 108/58 L O2 Saturation 100 98 Oxygen O2 Source Room air - Labs Labs: Laboratory Tests 02/02/20 02/02/20 02/02/20 02:10 02:31 06:38 WBC 10.5 RBC 3.36 L Hgb 8.9 L Hct 26.9 L MCV 80.1 L MCH 26.5 L MCHC 33.1 RDW 14.9 Plt Count 313 MPV 8.7 Neut # (Auto) 7.7 H Lymph # (Auto) 2.1 [place] # (Auto) 0.5 Eos # (Auto) 0.0 Baso # (Auto) 0.1 Absolute Nucleated RBC 0.00 Nucleated RBC % 0.0 Sodium Potassium Chloride Carbon Dioxide Anion Gap BUN Creatinine Estimated GFR (MDRD) Glucose Calcium Total Bilirubin AST ALT Alkaline Phosphatase Total Protein Albumin Globulin Albumin/Globulin Ratio Lipase Urine Opiates Screen NEGATIVE Ur Oxycodone Screen NEGATIVE Urine Methadone Screen NEGATIVE Ur Propoxyphene Screen NEGATIVE Ur Barbiturates Screen NEGATIVE Ur Tricyclics Screen NEGATIVE Ur Phencyclidine Scrn NEGATIVE Ur Amphetamine Screen NEGATIVE U Methamphetamines Scrn NEGATIVE U Benzodiazepines Scrn NEGATIVE Urine Cocaine Screen NEGATIVE U Cannabinoids Screen NEGATIVE Ethyl Alcohol 264.6 02/02/20 02/02/20 06:38 12:13 WBC RBC Hgb Hct MCV MCH MCHC RDW Plt Count MPV Neut # (Auto) Lymph # (Auto) [place] # (Auto) Eos # (Auto) Baso # (Auto) Absolute Nucleated RBC Nucleated RBC % Sodium 136 Potassium 3.5 Chloride 103 Carbon Dioxide 22 Anion Gap 11.0 BUN < 5 L Creatinine 0.6 Estimated GFR (MDRD) 117 Glucose 94 Calcium 8.6 Total Bilirubin 0.7 AST 40 ALT 12 Alkaline Phosphatase 39 L Total Protein 6.2 L Albumin 3.3 Globulin 2.9 Albumin/Globulin Ratio 1.1 Lipase 26 Urine Opiates Screen Ur Oxycodone Screen Urine Methadone Screen Ur Propoxyphene Screen Ur Barbiturates Screen Ur Tricyclics Screen Ur Phencyclidine Scrn Ur Amphetamine Screen U Methamphetamines Scrn U Benzodiazepines Scrn Urine Cocaine Screen U Cannabinoids Screen Ethyl Alcohol 62.8 PD MEDICAL DECISION MAKING - ED course Complexity details: reviewed old records, reviewed results, re-evaluated patient, considered differential, d/w patient ED course: patient held in ED overnight and care turned over to Dr. Coughlin at end of my shift pending medical clearance for MHP evaluation. She is also at risk for withdrawal given that she was awake, alert, and oriented x 3 on earlier visit when her etoh level was in excess of .400. Patient and I discussed [place] and she expresses to me that she does not see the point of having to undergo rehab/detox when she feels that she will likely resume drinking alcohol once she is discharged.
[2020-02-02 02:20] LABS: MUDS CUTOFF CONCENTRATIONS CUTOFF CONC BELOW:
[2020-02-02 02:21] LABS: AMPHETAMINE SCREEN,URINE NEGATIVE (NEGATIVE); BENZODIAZEPINES SCREEN, URINE NEGATIVE (NEGATIVE); COCAINE SCREEN URINE NEGATIVE (NEGATIVE); METHADONE SCREEN, URINE NEGATIVE (NEGATIVE); METHAMPHETAMINES SCREEN, URINE NEGATIVE (NEGATIVE); OPIATE SCREEN, URINE NEGATIVE (NEGATIVE); OXYCODONE SCREEN, URINE NEGATIVE (NEGATIVE); PROPOXYPHENE SCREEN, URINE NEGATIVE (NEGATIVE); TRICYCLIC ANTIDEPRESSANT,URINE NEGATIVE (NEGATIVE)
[2020-02-02] MEDS ORDERED: ONDANSETRON ODT 4 MG TABLET TL STA (06:17)
[2020-02-02] MEDS ORDERED: SODIUM CHLORIDE 0.9% 1,000 ML IV STA (06:34)
[2020-02-02 06:42] LABS: BASOPHILS # (AUTO) 0.1 10^3/uL (0.0-0.1); BASOPHILS % (AUTO) 0.7 %; EOSINOPHILS % (AUTO) 0.1 %; HGB - HEMOGLOBIN 8.9 g/dL (12.0-16.0); LYMPHOCYTES # (AUTO) 2.1 10^3/uL (1.5-3.5); LYMPHOCYTES % (AUTO) 20.3 %; MEAN CORPUSCULAR HEMOGLOBIN 26.5 pg (27.0-31.0); MEAN CORPUSCULAR HGB CONC 33.1 g/dL (32.0-36.0); MEAN CORPUSCULAR VOLUME 80.1 fL (81.0-99.0); MEAN PLATELET VOLUME 8.7 fL (7.9-10.8); MONOCYTES # (AUTO) 0.5 10^3/uL (0.0-1.0); MONOCYTES % (AUTO) 5.1 %; NEUTROPHILS # (AUTO) 7.7 10^3/uL (1.5-6.6); NEUTROPHILS % (AUTO) 73.3 %; PLT - PLATELET COUNT 313 10^3/uL (130-450); RED BLOOD COUNT 3.36 10^6/uL (4.20-5.40); RED CELL DISTRIBUTION WIDTH 14.9 % (12.0-15.0); WHITE BLOOD COUNT 10.5 x10^3/uL (4.8-10.8)
[2020-02-02 06:58] LABS: ALBUMIN 3.3 g/dL (3.2-5.5); ALBUMIN/GLOBULIN RATIO 1.1 (1.0-2.2); ALKALINE PHOSPHATASE 39 IU/L (42-121); ALT ALANINE AMINOTRANSFERASE 12 IU/L (10-60); AST ASPARTATE AMINOTRANSFERASE 40 IU/L (10-42); BILIRUBIN,TOTAL 0.7 mg/dL (0.2-1.0); BUN - BLOOD UREA NITROGEN < 5 mg/dL (6-20); CALCIUM 8.6 mg/dL (8.5-10.3); CARBON DIOXIDE - CO2 22 mmol/L (21-32); CHLORIDE 103 mmol/L (101-111); CREATININE 0.6 mg/dL (0.4-1.0); GLUCOSE 94 mg/dL (70-100); LIPASE 26 U/L (22-51); SODIUM 136 mmol/L (135-145); TOTAL PROTEIN 6.2 g/dL (6.7-8.2)
[2020-02-02] MEDS ORDERED: PHENobarbital 65 MG/ML VIAL IM STA (07:26)
[2020-02-02] MEDS ORDERED: diphenhydrAMINE INJ 50 MG/ML VIAL IVP STA ×2 (07:27→15:38)
[2020-02-02] MEDS ORDERED: LACTATED RINGERS 1,000 ML IV STA ×2 (07:27→15:39)
[2020-02-02] MEDS ORDERED: PHENobarbital 65 MG/ML VIAL IV STA ×2 (07:32→11:12)
--- NOTE | 2020-02-02 08:04 | Ultrasound Report ---
PROCEDURE: OB 14+ Weeks INDICATIONS: , approximately 17 weeks OUTSIDE/PRIOR DATING DATA: Last menstrual period (LMP): Not known. LMP-based estimated date of delivery (KYLEIGH): Not applicable. First dating scan (date and location): 12/06/2019 Estimated date of delivery (KYLEIGH) from first dating scan: 07/06/2020. TECHNIQUE: Real-time scanning was performed of the fetus, with image documentation and biometric measurements. Endovaginal scanning: Performed COMPARISON: None. FINDINGS: General: A single living intrauterine gestation is present. Presentation: Breech Placenta: Placental position is anterior, without previa. Amniotic fluid index: 10.8 cm, 19th percentile for gestational age. heart rate: 153 beats per minute. Maternal cervical canal: Closed and 3.6 cm long; normal length is 2.5 cm or more. biometrics: Biparietal diameter: 17 weeks 5 days Head circumference: 17 weeks 5 days Abdominal circumference: 18 weeks 1 day Femur length: 17 weeks 6 days Estimated gestational age from initial scan: 17 weeks 6 days. Composite gestational age from present scan: 17 weeks 6 days Estimated weight and percentile: 219 g; 53rd percentile Measurement variability for biometric dating: +/- 10 days from 12-20 weeks gestation, +/- 2 weeks fro m 20-30 weeks gestation, +/- 3 weeks for 30 weeks gestation or later. Anatomic survey: Neuro: Ventricles are non-dilated at less than 10 mm. Cisterna magna is normal at 3-11 mm. Cerebel lum is normal in size and morphology. Nuchal skin fold: Normal at less than 6 mm between 14-20 weeks gestational age. Face: Nose and lips, facial profile are normal. Spine: Lumbosacral spine not well visualized due to patient position. Heart: 4-chambered heart is present, with normal ventricular outflow tracts. Diaphragm: Diaphragm is intact. Stomach: Left-sided stomach is present. Kidneys: No hydronephrosis. Normal is less than 5 mm in 2nd trimester, less than 7 mm in 3rd trimester. Cord: 3-vessel cord has orthotopic insertion. Bladder: Normal in size. Extremities: All 4 extremities identified. IMPRESSION: 1. Single living intrauterine gestation with appropriate interval growth. 2. Amniotic fluid index 10.8 cm. 3. anatomic survey within normal limits with the exception of the lumbosacral spine which is no t well visualized in the current study due to position. Reviewed by: Vonnie Armstrong MD, PhD on 02/02/2020 8:02 AM PDT Approved by: Vonnie Armstrong MD, PhD on 02/02/2020 8:02 AM PDT Station ID: [id number]
[2020-02-02] MEDS ORDERED: ONDANSETRON 4 MG/2 ML VIAL IVP STA ×2 (11:12→14:31)
[2020-02-02] MEDS ORDERED: FAMOTIDINE 20 MG/2 ML SYRINGE IVP STA (11:13)
[2020-02-02] MEDS ORDERED: DEXAMETHASONE 10 MG/ML VIAL IVP STA (14:31)
--- NOTE | 2020-02-02 18:02 | ED Physician Documentation ---
ED Addendum - Addendum Addendum: 02/02/20 18:00I took over care on the patient on change of shift. She was having some withdrawal symptoms. I looked up references for treatments for alcohol withdrawal. Most were contraindicated in . I did see on the pocket pharmacopeia that phenobarb was listed as a class B and so we could use this for her withdrawal symptoms. Was also given ondansetron for nausea. She did seem improved with these medicines. Social work saw the patient and at this point she is voluntary and wanting help and so they are looking for placement for her.
[2020-02-03] MEDS ORDERED: hydrOXYzine PAMOATE 25 MG CAPSULE PO STA (08:57)
--- NOTE | 2020-02-03 13:57 | ED Physician Documentation ---
ED Addendum - Addendum Addendum: 02/03/20 13:56 29-year-old woman in the department today after drinking heavily, she 17 weeks . She was being considered at [place] for medical detox today but did not fit acuity, admittedly review this chart shows that she has been in the department now for 36 hours without the need for benzodiazepines or other specific treatments for alcohol withdrawal. Social work still working on it. 02/03/20 17:00 Took an update from the social media senior associate, most places that they have looked at have declined the patient for a variety of reasons. Still possibility she might go to [facility].
[2020-02-03] MEDS ORDERED: diphenhydrAMINE 25 MG CAPSULE PO STA (20:40)
[2020-02-03 20:50] VITALS: BP 95/61
--- NOTE | 2020-02-04 15:21 | ED Physician Documentation ---
ED Addendum - Addendum Addendum: 02/04/20 15:18 Patient will be discharged to [facility] in [place]. After eval she is planning on going to rehab and detox. This document was made in part using voice recognition software. While efforts are made to proofread this document, sound alike and grammatical errors may occur. Departure - Departure Disposition: 01 Home, Self Care Clinical Impression: Alcohol abuse, Substance abuse Condition: Stable Instructions: ED Alcohol Abuse Comments: You are to go directly to the [facility] [place] today. Return if you worsen.
== END 2020-02-04 15:51 | disposition home or self-care (01) ==
LOC: ED 01:40
DX: O99.312 Alcohol use complicating pregnancy, second trimester (principal); F10.129 Alcohol abuse with intoxication, unspecified; Y90.8 Blood alcohol level of 240 mg/100 ml or more; Z3A.17 17 weeks gestation of pregnancy; Z20.828 Contact with and (suspected) exposure to other viral communicable diseases
CPT/HCPCS: 36415; 76805; 80053; 80306; 80320; 83690; 85025; 87635; 96361; 96374; 96375; 96376; 99283; 99284; A9270; J1200; J7120; Q0162

== ENCOUNTER 2020-02-11 09:38 | Outpatient (CLI) | payer OTHER | END 2020-02-11 09:39 | disposition critical access hospital (66) | LOC: EMS 09:38 | PROVIDERS: ATTEND Surgery | DX: O99.312 Alcohol use complicating pregnancy, second trimester (principal); R45.851 Suicidal ideations | CPT/HCPCS: A0425; A0429 ==

== ENCOUNTER 2020-02-11 09:57 | Emergency (ER) | payer OTHER ==
[2020-02-11] MEDS ORDERED: ONDANSETRON 4 MG/2 ML VIAL IVP STA ×3 (10:01→14:11)
[2020-02-11] MEDS ORDERED: SODIUM CHLORIDE 0.9% 1,000 ML IV STA ×3 (10:02→10:05)
[2020-02-11 10:45] LABS: BASOPHILS % (AUTO) 0.6 %; EOSINOPHILS # (AUTO) 0.1 10^3/uL (0.0-0.7); EOSINOPHILS % (AUTO) 0.7 %; LYMPHOCYTES # (AUTO) 1.2 10^3/uL (1.5-3.5); LYMPHOCYTES % (AUTO) 17.7 %; MEAN CORPUSCULAR HEMOGLOBIN 26.1 pg (27.0-31.0); MEAN CORPUSCULAR HGB CONC 32.1 g/dL (32.0-36.0); MEAN CORPUSCULAR VOLUME 81.3 fL (81.0-99.0); MEAN PLATELET VOLUME 9.1 fL (7.9-10.8); MONOCYTES # (AUTO) 0.3 10^3/uL (0.0-1.0); MONOCYTES % (AUTO) 4.1 %; NEUTROPHILS # (AUTO) 5.4 10^3/uL (1.5-6.6); NEUTROPHILS % (AUTO) 76.5 %; PLT - PLATELET COUNT 307 10^3/uL (130-450); RED BLOOD COUNT 4.22 10^6/uL (4.20-5.40); RED CELL DISTRIBUTION WIDTH 14.9 % (12.0-15.0)
[2020-02-11 11:13] LABS: ACETAMINOPHEN < 10 ug/mL (10-30); ALBUMIN 3.5 g/dL (3.2-5.5); ALBUMIN/GLOBULIN RATIO 0.9 (1.0-2.2); ALKALINE PHOSPHATASE 51 IU/L (42-121); ALT ALANINE AMINOTRANSFERASE 16 IU/L (10-60); AST ASPARTATE AMINOTRANSFERASE 40 IU/L (10-42); BILIRUBIN,TOTAL 0.5 mg/dL (0.2-1.0); BUN - BLOOD UREA NITROGEN 8 mg/dL (6-20); CALCIUM 8.5 mg/dL (8.5-10.3); CARBON DIOXIDE - CO2 21 mmol/L (21-32); CHLORIDE 102 mmol/L (101-111); CREATININE 0.6 mg/dL (0.4-1.0); GLUCOSE 121 mg/dL (70-100); LIPASE 32 U/L (22-51); MAGNESIUM 2.1 mg/dL (1.7-2.8); SALICYLATE < 6.0 mg/dL; SODIUM 137 mmol/L (135-145); TOTAL PROTEIN 7.2 g/dL (6.7-8.2)
[2020-02-11] MEDS ORDERED: ACETAMINOPHEN 325 MG TABLET PO STA (13:07)
[2020-02-11] MEDS ORDERED: KETOROLAC 15 MG/ML VIAL IVP STA (13:07)
[2020-02-11] MEDS ORDERED: FAMOTIDINE 20 MG/2 ML SYRINGE IVP STA (14:11)
[2020-02-11] MEDS ORDERED: ONDANSETRON 4 MG/2 ML VIAL ONE (14:16)
--- NOTE | 2020-02-11 14:48 | Ultrasound Report ---
PROCEDURE: OB Limited INDICATIONS: 18 weeks ; lower abd pain today OUTSIDE/PRIOR DATING DATA: Last menstrual period (LMP): Unknown. LMP-based estimated date of delivery (KYLEIGH): Unknown. First dating scan (date and location): 12/06/2019. Estimated date of delivery (KYLEIGH) from first dating scan: 07/06/2020. TECHNIQUE: Real-time scanning was performed of the fetus, with image documentation. Endovaginal scanning: Not performed COMPARISON: 02/02/2020 and 12/06/2019 FINDINGS: A single living intrauterine gestation is present. Presentation: Variable/transverse Placenta: Placental position is anterior, without previa. Amniotic fluid index: 13.6 cm, normal for gestational age. heart rate: 157 beats per minutes. Maternal cervical canal: Shortening of the cervix is seen with funneling at the internal os and measu res 2.1 cm. normal length is 2.5 cm or more. Estimated gestational age from initial scan: 19 weeks, 1 day. chest, stomach, bilateral kidneys and urinary bladder are visualized and are within normal limi ts. IMPRESSION: 1. Single live intrauterine with fetus in variable presentation. heart rate is 157 bp m. Normal amount of amniotic fluid. 2. Shortening of cervix measures 2.1 cm with funneling seen at internal os. No placenta previa. Reviewed by: Jos Hardwick MD on 02/11/2020 1:46 PM TATI Approved by: Jos Hardwick MD on 02/11/2020 1:46 PM AKYANIRA Station ID: [id number]
[2020-02-11] MEDS ORDERED: PHENobarbital 65 MG/ML VIAL IV STA ×2 (14:58→18:26)
[2020-02-11] MEDS ORDERED: PROMETHAZINE INJ 12.5 MG in SODIUM CHLORIDE 0.9% 50 ML IV STA ×2 (16:17→19:28)
--- NOTE | 2020-02-11 16:18 | ED Physician Documentation ---
PD HPI MHE - Stated complaint Stated Complaint: SI/ETOH - Chief complaint Chief Complaint: MHE - History obtained from History obtained from: Patient - History of Present Illness Primary symptom: Suicidal ideation, Depression, Other (intoxication alcohol). No: Suicide attempt Timing - onset: Last night, Yesterday Contributing factors: Substance abuse - ETOH (Patient does have history of alcohol abuse and regular intoxication. She had been here septic number through 22nd with alcohol withdrawal and suicidal ideation compounded by at 17 weeks.) Recently seen: Emergency Dept (1 07/19/2021 with voluntary placement at crisis center/detox but she states her ride fell through and so she did not make it there. She has been drinking again for several days and having suicidal ideation last night. Family called EMS this morning. Pt voluntarily wants help with detox and treatment) Review of Systems Constitutional: denies: Fever, Chills Nose: denies: Rhinorrhea / runny nose, Congestion Throat: denies: Sore throat Respiratory: denies: Cough GI: reports: Nausea, Vomiting, Other (). denies: Abdominal Pain, Abdominal Swelling, Diarrhea : reports: Now EGA (18 weeks). denies: Dysuria, Frequency, Discharge, Vaginal bleeding Neurologic: reports: Generalized weakness, Altered mental status (intoxicated, sleepy). denies: Focal weakness, Numbness, Near syncope, Headache, Head injury Endocrine: denies: Weight loss Immunocompromised: denies: Immunocompromised PD PAST MEDICAL HISTORY - Past Medical History Cardiovascular: None Respiratory: None Neuro: Other Endocrine/Autoimmune: None GI: None [employer]LLY: Ovarian cysts, Miscarriage(s) : None HEENT: None Psych: Depression, Other Musculoskeletal: None Derm: None - Past Surgical History Past Surgical History: Yes /[employer]LE [employer] DOLLY: Dilation and currettage - Present Medications Home Medications: Ambulatory Orders Medication Instructions Recorded Confirmed traZODone [Desyrel] 150 mg PO DAILY 03/18/19 06/06/19 Mirtazapine [Remeron] 30 mg PO DAILY 05/02/19 06/06/19 - Allergies Allergies/Adverse Reactions: Allergies Allergy/AdvReac Type Severity Reaction Status Date / Time metoclopramide [From Reglan] Allergy Nausea Verified 02/11/20 10:17 hydrocodone bitartrate * AdvReac Mild Hives Verified 10/01/20 10:17 [From Lortab] - Social History Does the pt smoke?: No Smoking Status: Never smoker Does the pt drink ETOH?: Yes Does the pt have substance abuse?: No - Immunizations Immunizations are current?: Yes - POLST Patient has POLST: No PD ED PE NORMAL - Vitals Vital signs reviewed: Yes - General General: No acute distress, Well developed/nourished. No: 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 (somnolent but rouses easily) - HEENT HEENT: Atraumatic, Pharynx benign - Neck Neck: Supple, no meningeal sign, No adenopathy - Cardiac Cardiac: RRR, No murmur - Respiratory Respiratory: Clear bilaterally - Abdomen Abdomen: Normal bowel sounds, Soft, Non tender, No organomegaly, Other (gravid with fundus just below umbilicus) - Derm Derm: Normal color, Warm and dry - Extremities Extremities: No tenderness to palpate, Normal ROM s pain, No edema - Neuro Neuro: 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, No motor deficit, Normal speech Results - Vitals Vitals: Vital Signs - 24 hr 02/11/20 02/11/20 02/11/20 10:06 10:17 18:00 Temperature 36.6 C 37.2 C Heart Rate 86 74 Respiratory 17 18 16 Rate Blood Pressure 120/92 H 103/72 103/63 O2 Saturation 100 100 100 Oxygen O2 Source Room air - Labs Labs: Laboratory Tests 02/11/20 02/11/20 02/11/20 10:30 10:30 10:30 WBC 7.0 RBC 4.22 Hgb 11.0 L Hct 34.3 L MCV 81.3 MCH 26.1 L MCHC 32.1 RDW 14.9 Plt Count 307 MPV 9.1 Neut # (Auto) 5.4 Lymph # (Auto) 1.2 L [place] # (Auto) 0.3 Eos # (Auto) 0.1 Baso # (Auto) 0.0 Absolute Nucleated RBC 0.00 Nucleated RBC % 0.0 PT INR APTT Sodium 137 Potassium 4.3 Chloride 102 Carbon Dioxide 21 Anion Gap 14.0 H BUN 8 Creatinine 0.6 Estimated GFR (MDRD) 117 Glucose 121 H Calcium 8.5 Magnesium 2.1 Total Bilirubin 0.5 AST 40 ALT 16 Alkaline Phosphatase 51 Total Protein 7.2 Albumin 3.5 Globulin 3.7 Albumin/Globulin Ratio 0.9 L Lipase 32 TSH 0.59 Urine Color Urine Clarity Urine pH Ur Specific [place] Urine Protein Urine Glucose (UA) Urine Ketones Urine Occult Blood Urine Nitrite Urine Bilirubin Urine Urobilinogen Ur Leukocyte Esterase Ur Microscopic Review Urine Culture Comments Salicylates < 6.0 Urine Opiates Screen Ur Oxycodone Screen Urine Methadone Screen Ur Propoxyphene Screen Acetaminophen < 10 L Ur Barbiturates Screen Ur Tricyclics Screen Ur Phencyclidine Scrn Ur Amphetamine Screen U Methamphetamines Scrn U Benzodiazepines Scrn Urine Cocaine Screen U Cannabinoids Screen Ethyl Alcohol 300.8 Antibody Screen 02/11/20 02/11/20 02/11/20 17:14 17:36 17:36 WBC RBC Hgb Hct MCV MCH MCHC RDW Plt Count MPV Neut # (Auto) Lymph # (Auto) [place] # (Auto) Eos # (Auto) Baso # (Auto) Absolute Nucleated RBC Nucleated RBC % PT 13.0 H INR 1.2 APTT 27.7 Sodium Potassium Chloride Carbon Dioxide Anion Gap BUN Creatinine Estimated GFR (MDRD) Glucose Calcium Magnesium Total Bilirubin AST ALT Alkaline Phosphatase Total Protein Albumin Globulin Albumin/Globulin Ratio Lipase TSH Urine Color YELLOW Urine Clarity CLEAR Urine pH 6.0 Ur Specific [place] >=1.030 H Urine Protein TRACE Urine Glucose (UA) 100 H Urine Ketones NEGATIVE Urine Occult Blood NEGATIVE Urine Nitrite NEGATIVE Urine Bilirubin NEGATIVE Urine Urobilinogen 0.2 (NORMAL) Ur Leukocyte Esterase NEGATIVE Ur Microscopic Review NOT INDICATED Urine Culture Comments NOT INDICATED Salicylates Urine Opiates Screen NEGATIVE Ur Oxycodone Screen NEGATIVE Urine Methadone Screen NEGATIVE Ur Propoxyphene Screen NEGATIVE Acetaminophen Ur Barbiturates Screen POSITIVE H Ur Tricyclics Screen NEGATIVE Ur Phencyclidine Scrn NEGATIVE Ur Amphetamine Screen NEGATIVE U Methamphetamines Scrn NEGATIVE U Benzodiazepines Scrn NEGATIVE Urine Cocaine Screen NEGATIVE U Cannabinoids Screen NEGATIVE Ethyl Alcohol Antibody Screen NEGATIVE - Rads (name of study) OB U?S Radiology: Prelim report reviewed (FHR 157, normal fetus. Cervix is shorter at 2.2 cm), See rad report PD MEDICAL DECISION MAKING - ED course Complexity details: reviewed results, re-evaluated patient (having withdrawal symptoms into later afternoon. ), considered differential, d/w patient, d/w talent development consultant ( Consult with Dr. Rubi for [facility] regarding the shortened cervix. Did consult [facility] who will follow at [facility].), other (I talked with Dr. Rogel who is the admitting provider at [facility]. He is at their detox and treatment program. I advised him of the patient's condition and problems. He states they had been looking at discharges this afternoon but do not have any beds available at this time. ) ED course: Dr. Rogel at [facility] states they are happy to accept the patient when they have beds available so to call back in the morning. In reviewing her treatment here, he states that they typically use benzodiazepines for withdrawal in despite there categorization as D. He feels the short-term use of it is acceptable in the he categorization comes from long-term use. They do not use phenobarbital even though the same rationale would apply and suggested we use benzodiazepines instead. The patient was initially intoxicated and needed some antiemetics but IV hydration. Through the day she did develop some withdrawal symptoms and was treated for that. Social work talk with her and talked with [facility] facility who said they would be able to accept her when she is medically cleared. She developed some lower abdominal crampiness in the afternoon we got an ultrasound that showed a shortened cervix compared to prior. Consult with Dr. Rubi who evaluated her and came to see the patient. She talked with [facility] maternal- medicine who said that she would not yet be indicated for cerclage until her cervix shortens a little bit more and they would follow with her if she goes to [facility]. However then talked with [facility] and Dr. Rogel the provider there said they did not have any beds available at this time but to call back in the morning. Departure - Departure Disposition: [facility]/Unit DC/Xfer Clinical Impression: Alcohol abuse, , Suicidal ideation, Cervical shortening affecting , Alcoholic intoxication Condition: Stable
[2020-02-11] MEDS ORDERED: PROMETHAZINE 25 MG/1 ML VIAL ONE ×2 (16:30→19:58)
--- NOTE | 2020-02-11 17:14 | CONSULTATION NOTE ---
History of Present Illness - History of Present Illness HPI Comment/Other: Asked by Dr. Coughlin, ER, to see this patient with cramping pain. HPI: being evaluated in the ER for alcohol abuse. She called 911 today afraid that she would hurt herself by drinking herself to . Had no other plan to harm herself though she has been intermittently suicidal in the past few months. No hallucinations. Wants to parent this child, declines alternatives. PMH: alcohol abuse, depression PSH: D&C x1 Meds: patient denies taking meds at home Allergies: hydrocodone and reglan give hives SH: alcoholism active. No drug or tobacco use. Lives with her spouse and feels safe at home. Living child is under CPS care due to alcoholism. 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 No care this other than ER visits for EtOH. SAB x2, early, one needed D&C Uncomplicated at term, healthy baby, was not drinking that . Labs: A negative, rubella and varicella immune, Hct 34, plts normal Dating: by 9w4d US on 12/05 --> KYLEIGH 07/06/20 US 02/01: 53%ile, Normal anatomy but L-S spine not well-seen, normal fluid, CL 3.6cm, anterior placenta without previa. US 02/10: CL 2.1cm with funneling transabdominal and transvaginal ROS: no fevers. No VB, no LOF. No movement History - Past Medical History Cardiovascular: reports: None Respiratory: reports: None Neuro: reports: Other Endocrine/Autoimmune: reports: None GI: reports: None SHEET METAL PATTERN CUTTER: reports: Ovarian cysts, Miscarriage(s) : reports: None HEENT: reports: None Psych: reports: Depression, Other Musculoskeletal: reports: None Derm: reports: None MRSA Hx?: No - Past Surgical History /SHEET METAL PATTERN CUTTER: reports: Dilation and currettage - POLST Patient has POLST: No Meds/Allgy - Home Medications Home Medications: Ambulatory Orders Medication Instructions Recorded Confirmed traZODone [Desyrel] 150 mg PO DAILY 03/18/19 06/06/19 Mirtazapine [Remeron] 30 mg PO DAILY 05/02/19 06/06/19 - Allergies Allergies/Adverse Reactions: Allergies Allergy/AdvReac Type Severity Reaction Status Date / Time metoclopramide [From Reglan] Allergy Nausea Verified 02/11/20 10:17 hydrocodone bitartrate * AdvReac Mild Hives Verified 02/11/20 10:17 [From Lortab] Exam - Vital Signs Vital Signs: Vital Signs x48h Temp Pulse Resp BP Pulse Ox 02/11/20 10:17 18 103/72 100 02/11/20 10:06 98 F 86 17 120/92 H 100 - Physical Exam General Appearance: positive: Alert, Mild distress (Rocking back and forth, hand tremor) Eyes Bilateral: positive: EOMI Respiratory: positive: No respiratory distress Skin: negative: Skin rash Extremities: positive: No pedal edema Neurologic/Psychiatric: positive: Oriented x3, Motor nml, Depressed mood/affect Conclusion/Plan - Plan Plan: 29yo at 19w3d by a 9w US with shortened cervix with funneling (2.1cm). 9d ago her CL was normal at 3.6cm. She is having some cramping but it is mild. DDX includes short cervix, cervical incompetence, or labor. Has had one term delivery in the past, nothing , no history of cervical surgeries. U tox negative. D/w MFM at [facility] Dr. Guan who does not recommend cerclage unless CL is less than 1.5cm. She will plan to recheck this in about a week. In the meantime she would like to start prometrium (micronized progesterone) 200mg per vagina at night. Severe alcoholism with JOEY 395 in 1st trimester on 12/05, max was 416 on 01/31. Discussed that fetus will be impacted by drinking and that it could lead to alcohol syndrome--no way to evaluate or know the severity now or prior to delivery. Could choose to terminate if she wants to avoid having a special- needs child. She firmly declines this. Could choose to see what happens with the cervical shortening and not intervene. Declines this option as well. Bessy l platelets and LFT. Will check coags. Pt has a detox bed arranged and is medically cleared for this, uR may call Dr. Guan PRN further questions. Remainder of NOB labs will be drawn today. - Lab Results Fish Bones: 02/11/20 10:30 02/11/20 10:30
[2020-02-11 17:19] LABS: MUDS CUTOFF CONCENTRATIONS CUTOFF CONC BELOW:
[2020-02-11 17:21] LABS: BILIRUBIN,URINE NEGATIVE (NEGATIVE); GLUCOSE, URINE (UA) 100 mg/dL (NEGATIVE); KETONES,URINE (UA) NEGATIVE (NEGATIVE); LEUKOCYTE ESTERASE, URINE NEGATIVE (NEGATIVE); NITRITE,URINE NEGATIVE (NEGATIVE); OCCULT BLOOD,URINE NEGATIVE (NEGATIVE); PROTEIN,URINE TRACE mg/dL (NEGATIVE); UROBILINOGEN,URINE 0.2 (NORMAL) E.U./dL (NORMAL)
[2020-02-11 17:40] LABS: CLARITY,URINE CLEAR (CLEAR)
[2020-02-11 17:48] LABS: AMPHETAMINE SCREEN,URINE NEGATIVE (NEGATIVE); BENZODIAZEPINES SCREEN, URINE NEGATIVE (NEGATIVE); COCAINE SCREEN URINE NEGATIVE (NEGATIVE); METHADONE SCREEN, URINE NEGATIVE (NEGATIVE); METHAMPHETAMINES SCREEN, URINE NEGATIVE (NEGATIVE); OPIATE SCREEN, URINE NEGATIVE (NEGATIVE); TRICYCLIC ANTIDEPRESSANT,URINE NEGATIVE (NEGATIVE)
[2020-02-11 17:49] LABS: INR 1.2 (0.8-1.2)
[2020-02-11 17:49] LABS: OXYCODONE SCREEN, URINE NEGATIVE (NEGATIVE); PROPOXYPHENE SCREEN, URINE NEGATIVE (NEGATIVE)
--- NOTE | 2020-02-11 17:50 | Ultrasound Report ---
PROCEDURE: OB Transvaginal INDICATIONS: Cervical shortening on TA imaging OUTSIDE/PRIOR DATING DATA: Last menstrual period (LMP): Not known. LMP-based estimated date of delivery (KYLEIGH): Not applicable. First dating scan (date and location): 12/06/2019. Estimated date of delivery (KYLEIGH) from first dating scan: 07/06/2020. TECHNIQUE: Real-time scanning was performed of the fetus, with image documentation. Endovaginal scanning: Performed COMPARISON: 12/06/2019 02/02/2020. FINDINGS: Maternal cervical canal: 2.1 cm long; normal length is 2.5 cm or more. There is funneling at the inte rnal cervical os. IMPRESSION: Endovaginal imaging demonstrates shortening of the cervix measuring 2.1 cm with internal cervical os funneling. Reviewed by: Vonnie Armstrong MD, PhD on 02/11/2020 5:49 PM PDT Approved by: Vonnie Armstrong MD, PhD on 02/11/2020 5:49 PM PDT Station ID: [id number]
[2020-02-11 17:56] LABS: PARTIAL THROMBOPLASTIN TIME 27.7 secs (24.9-33.3)
[2020-02-11] MEDS ORDERED: DEXAMETHASONE 10 MG/ML VIAL IVP STA (19:28)
[2020-02-11] MEDS ORDERED: LORazepam 2 MG/ML VIAL IVP STA (19:28)
[2020-02-11 19:43] LABS: CREATININE 0.5 mg/dL (0.4-1.0); MAGNESIUM 1.6 mg/dL (1.7-2.8)
[2020-02-12] MEDS ORDERED: POTASSIUM CHLORIDE 20 MEQ TABLET PO STA (00:01)
[2020-02-12 00:44] LABS: TRICHOMONAS VAGINALIS DNA NEGATIVE (NEGATIVE)
[2020-02-12] MEDS ORDERED: LORazepam 2 MG/ML VIAL IVP STA (03:08)
[2020-02-12] MEDS ORDERED: ONDANSETRON 4 MG/2 ML VIAL IVP STA (03:08)
[2020-02-12 07:06] LABS: HIV AG/AB 4TH GEN NON-REACTIVE (NON-REACTIVE)
[2020-02-12 10:09] VITALS: BP 122/67
[2020-02-12 15:05] LABS: HEPATITIS B SURFACE ANTIGEN NON-REACTIVE (NON-REACTIVE); HEPATITIS C ANTIBODY NON-REACTIVE (NON-REACTIVE)
== END 2020-02-12 10:07 ==
LOC: EDUNIT# → ED 09:57
DX: O99.342 Other mental disorders complicating pregnancy, second trimester (principal); F32.9 Major depressive disorder, single episode, unspecified; R45.851 Suicidal ideations; O99.312 Alcohol use complicating pregnancy, second trimester; F10.229 Alcohol dependence with intoxication, unspecified; F10.239 Alcohol dependence with withdrawal, unspecified; O26.872 Cervical shortening, second trimester; Z3A.19 19 weeks gestation of pregnancy; Z20.828 Contact with and (suspected) exposure to other viral communicable diseases
CPT/HCPCS: 36415; 76815; 76817; 80048; 80320; 80329; 81003; 83690; 83735; 85610; 85730; 86780; 86803; 86850; 87340; 87389; 87491; 87591; 87635; 87661; 93005; 96365; 96366; 96375; 96376; 99284; 99285; A9270; J2060; J7040; 80053; 80306; 80307; 81001; 84443; 85025; 87086

== ENCOUNTER 2022-06-16 21:46 | Outpatient (CLI) | payer OTHER | END 2022-06-16 21:47 | disposition critical access hospital (66) | LOC: EMS 21:46 | DX: F32.A Depression, unspecified (principal); Z72.89 Other problems related to lifestyle | CPT/HCPCS: A0425; A0429 ==

== ENCOUNTER 2022-06-16 22:04 | Emergency (ER) | payer OTHER ==
--- OUTSIDE RECORDS SUMMARY | 2022-06-16 22:19 | EXTERNAL MEDICAL SUMMARY RPT | Continuity of Care Document ---
:1990 Author Organization [facility] Address [address] [place] [address] Phone Care Team Providers Name Role Phone Tonia Schneider Unavailable Unavailable Allergies and Intolerances date description facility type (no date) hydrocodone [facility] (unknown) (no date) metoclopramide [facility] (unknown) Encounters No information. Functional Status No information. Immunizations No information. Medications date description facility 2022-06-12 00:00 Ondansetron [facility] 2022-06-12 00:00 Tramadol [facility] Problems date description facility 2022-06-12 00:00 Abdominal pain [facility] 2022-06-12 00:00 Nausea and vomiting [facility] Procedures No information. Results/Labs test date author facility value unit interpret ation Result panel 1 (unknown) (no date) ([facility]) Result panel 2 (unknown) (no date) (unknown[facility]) Result panel 3 (unknown) (no date) (unknown[facility]) Result panel 4 (unknown) (no date) (unknown[facility]) Result panel 5 (unknown) (no date) (unknown[facility]) Result panel 6 (unknown) (no date) (unknown[facility]) Result panel 7 (unknown) (no date) (unknown[facility]) Result panel 8 (unknown) (no date) (unknown[facility]) Result panel 9 (unknown) (no date) (unknown[facility]) Result panel 10 (unknown) (no date) (unknown[facility]) Result panel 11 (unknown) (no date) (unknown[facility]) Result panel 12 (unknown) (no date) (unknown[facility]) Result panel 13 (unknown) (no date) (unknown[facility]) Result panel 14 (unknown) (no date) (unknown[facility]) Result panel 15 (unknown) (no date) (unknown[facility]) Result panel 16 (unknown) (no date) (unknown[facility]) Result panel 17 (unknown) (no date) (unknown[facility]) Result panel 18 (unknown) (no date) (unknown[facility]) Result panel 19 (unknown) (no date) (unknown[facility]) Result panel 20 (unknown) (no date) (unknown[facility]) Result panel 21 (unknown) (no date) (unknown[facility]) Result panel 22 (unknown) (no date) (unknown[facility]) Result panel 23 (unknown) (no date) (unknown[facility]) Result panel 24 (unknown) (no date) (unknown[facility]) Result panel 25 (unknown) (no date) (unknown[facility]) Result panel 26 (unknown) (no date) (unknown[facility]) Result panel 27 (unknown) (no date) (unknown[facility]) Result panel 28 (unknown) (no date) (unknown[facility]) Result panel 29 (unknown) (no date) (unknown[facility]) Result panel 30 (unknown) (no date) (unknown[facility]) Result panel 31 (unknown) (no date) (unknown[facility]) Result panel 32 (unknown) (no date) (unknown[facility]) Result panel 33 (unknown) (no date) (unknown[facility]) Result panel 34 (unknown) (no date) (unknown[facility]) Result panel 35 (unknown) (no date) (unknown[facility]) Result panel 36 (unknown) (no date) (unknown[facility]) Result panel 37 (unknown) (no date) (unknown[facility]) Result panel 38 (unknown) (no date) (unknown[facility]) Result panel 39 (unknown) (no date) (unknown[facility]) Result panel 40 (unknown) (no date) (unknown[facility]) Result panel 41 (unknown) (no date) (unknown[facility]) Result panel 42 (unknown) (no date) (unknown[facility]) Result panel 43 (unknown) (no date) (unknown[facility]) Result panel 44 (unknown) (no date) (unknown[facility]) Result panel 45 (unknown) (no date) (unknown[facility]) Result panel 46 (unknown) (no date) (unknown[facility]) Result panel 47 (unknown) (no date) (unknown[facility]) Result panel 48 (unknown) (no date) (unknown[facility]) Result panel 49 (unknown) (no date) (unknown[facility]) Result panel 50 (unknown) (no date) (unknown[facility]) Result panel 51 (unknown) (no date) (unknown[facility]) Result panel 52 (unknown) (no date) (unknown[facility]) Result panel 53 (unknown) (no date) (unknown[facility]) Result panel 54 (unknown) (no date) (unknown[facility]) Result panel 55 (unknown) (no date) (unknown[facility]) Result panel 56 (unknown) (no date) (unknown[facility]) Result panel 57 (unknown) (no date) (unknown[facility]) Result panel 58 (unknown) (no date) (unknown[facility]) Result panel 59 (unknown) (no date) (unknown[facility]) Result panel 60 (unknown) (no date) (unknown[facility]) Result panel 61 (unknown) (no date) (unknown[facility]) Result panel 62 (unknown) (no date) (unknown[facility]) Result panel 63 (unknown) (no date) (unknown[facility]) Result panel 64 (unknown) (no date) (unknown[facility]) Result panel 65 (unknown) (no date) (unknown[facility]) Result panel 66 (unknown) (no date) (unknown[facility]) Result panel 67 (unknown) (no date) (unknown[facility]) Result panel 68 (unknown) (no date) (unknown[facility]) Result panel 69 (unknown) (no date) (unknown[facility]) Result panel 70 (unknown) (no date) (unknown[facility]) Result panel 71 (unknown) (no date) (unknown[facility]) Result panel 72 (unknown) (no date) (unknown[facility]) Result panel 73 (unknown) (no date) (unknown[facility]) Result panel 74 (unknown) (no date) (unknown[facility]) Result panel 75 (unknown) (no date) (unknown[facility]) Result panel 76 (unknown) (no date) (unknown[facility]) Result panel 77 (unknown) (no date) (unknown[facility]) Result panel 78 (unknown) (no date) (unknown[facility]) Result panel 79 (unknown) (no date) (unknown[facility]) Result panel 80 (unknown) (no date) (unknown[facility]) Result panel 81 (unknown) (no date) (unknown[facility]) Result panel 82 (unknown) (no date) (unknown[facility]) Result panel 83 (unknown) (no date) (unknown[facility]) Result panel 84 (unknown) (no date) (unknown[facility]) Result panel 85 (unknown) (no date) (unknown[facility]) Result panel 86 (unknown) (no date) (unknown[facility]) Result panel 87 (unknown) (no date) (unknown[facility]) Result panel 88 (unknown) (no date) (unknown[facility]) Result panel 89 (unknown) (no date) (unknown[facility]) Result panel 90 (unknown) (no date) (unknown[facility]) Result panel 91 (unknown) (no date) (unknown[facility]) Result panel 92 (unknown) (no date) (unknown[facility]) Result panel 93 (unknown) (no date) (unknown[facility] Result panel 94 (unknown) (no (unknown) (unknown) (no value) (units (unk nown) date) unknown) (unknown) (no (unknown) (unknown) (1-3) #30 tabs (units (unknown) date) unknown) (unknown) (no (unknown) (unknown) (Benadryl) caps (units (unknown) date) unknown) (unknown) (no (unknown) (unknown) (Colace) (units (unkno wn) date) unknown) (unknown) (no (unknown) (unknown) (Tylenol) (units (unkn own) date) unknown) (unknown) (no (unknown) (unknown) [id number] (units (unkn own) date) unknown) (unknown) (no (unknown) (unknown) 1 tab PO DAILY (units (unknown) date) unknown) (unknown) (no (unknown) (unknown) 100 mg PO BID Qty: (units (unknown) date) 30 0RF unknown) (unknown) (no (unknown) (unknown) 25 mg PO BEDTIME (units (unknown) date) PRN (Reason: unknown) insomnia) Qty: 20 0RF (unknown) (no (unknown) (unknown) 325 mg PO Q6H PRN (units (unknown) date) (Reason: pain) Qty: unknown) 20 0RF (unknown) (no (unknown) (unknown) 4 mg PO Q8H PRN (units (unknown) date) (Reason: nausea and unknown) vomiting) Qty: 20 0RF (unknown) (no (unknown) (unknown) 4 mg PO Q8H PRN (units (unknown) date) (Reason: nausea and unknown) vomiting) Qty: 30 0RF (unknown) (no (unknown) (unknown) 600 mg PO Q6HR PRN (units (unknown) date) (Reason: Pain, Mild unknown) (1-3)) Qty: 30 0RF (unknown) (no (unknown) (unknown) Age/Sex: 31 / F (units (unknown) date) unknown) (unknown) (no (unknown) (unknown) Alcoholism (units (unk nown) date) unknown) (unknown) (no (unknown) (unknown) Allergies (units (unkn own) date) unknown) (unknown) (no (unknown) (unknown) Allergy/AdvReac (units (unknown) date) Type Severity unknown) Reaction Status Date / Time (unknown) (no (unknown) (unknown) Anemia (-2018) (units (unknown) date) unknown) (unknown) (no (unknown) (unknown) : 1990 (units (unknown) date) Acct:[id number] unknown) (unknown) (no (unknown) (unknown) Date of Service: (units (unknown) date) 06/12/22 unknown) (unknown) (no (unknown) (unknown) Departure (units (unkn own) date) unknown) (unknown) (no (unknown) (unknown) Discharge Plan (units (unknown) date) unknown) (unknown) (no (unknown) (unknown) ER Physician: (units ( unknown) date) *Temp,ED* unknown) (unknown) (no (unknown) (unknown) Emergency Report (units (unknown) date) unknown) (unknown) (no (unknown) (unknown) Family History (units (unknown) date) (Reviewed 07/04/21 unknown) @ 01:29 by Reinaldo Arthur DO) (unknown) (no (unknown) (unknown) Family/Other (units (u nknown) date) Alcoholism unknown) (unknown) (no (unknown) (unknown) Family/Other (units (u nknown) date) Diabetes mellitus unknown) (unknown) (no (unknown) (unknown) Father Alcoholism (units (unknown) date) unknown) (unknown) (no (unknown) (unknown) Tonia Schneider MD (units (unknown) date) [Primary Care unknown) Provider] (unknown) (no (unknown) (unknown) General (units (unkno wn) date) unknown) (unknown) (no (unknown) (unknown) Grandfather (units (un known) date) Smoker unknown) (unknown) (no (unknown) (unknown) Grandfather (units (un known) date) Unknown unknown) whether patient has any health problems (unknown) (no (unknown) (unknown) Grandmother (units (un known) date) Diabetes unknown) mellitus (unknown) (no (unknown) (unknown) Grandmother (units (un known) date) Hypoglycemia unknown) (unknown) (no (unknown) (unknown) H/O dilation and (units (unknown) date) curettage unknown) (-12/14/16) (unknown) (no (unknown) (unknown) H/O wisdom tooth (units (unknown) date) extraction () unknown) (unknown) (no (unknown) (unknown) HPI - Abdominal (units (unknown) date) Pain unknown) (unknown) (no (unknown) (unknown) Home Medications (units (unknown) date) unknown) (unknown) (no (unknown) (unknown) Insomnia (units (unkno wn) date) unknown) (unknown) (no (unknown) (unknown) [facility] (units (unknown) date) [address] unknown) [place] [id number] (unknown) (no (unknown) (unknown) Medical History (units (unknown) date) (Reviewed 07/04/21 unknown) @ 01:29 by Reinaldo Arthur DO) (unknown) (no (unknown) (unknown) Medication (units (unk nown) date) Instructions unknown) Recorded Confirmed (unknown) (no (unknown) (unknown) Medication (units (unk nown) date) Instructions unknown) Recorded (unknown) (no (unknown) (unknown) Menometrorrhagia (units (unknown) date) unknown) (unknown) (no (unknown) (unknown) Mother Diabetes (units (unknown) date) mellitus unknown) (unknown) (no (unknown) (unknown) No Action (units (unkn own) date) unknown) (unknown) (no (unknown) (unknown) Obesity (units (unkno wn) date) unknown) (unknown) (no (unknown) (unknown) Overweight (units (unk nown) date) unknown) (unknown) (no (unknown) (unknown) Patient History (units (unknown) date) unknown) (unknown) (no (unknown) (unknown) Patient: (units (unkno wn) date) Sarah Soto R unknown) MR#: M (unknown) (no (unknown) (unknown) Prescriptions: (units (unknown) date) unknown) (unknown) (no (unknown) (unknown) Previous Rx's (units ( unknown) date) unknown) (unknown) (no (unknown) (unknown) Referrals: (units (unk nown) date) unknown) (unknown) (no (unknown) (unknown) Related Data (units (u nknown) date) unknown) (unknown) (no (unknown) (unknown) S/P myringotomy (units (unknown) date) with insertion of unknown) tube (unknown) (no (unknown) (unknown) (spontaneous (units (unknown) date) vaginal delivery) unknown) (-09/05/18) (unknown) (no (unknown) (unknown) Signed By: (units (unk nown) date) unknown) (unknown) (no (unknown) (unknown) Smoker (units (unkno wn) date) unknown) (unknown) (no (unknown) (unknown) Smoking Status: (units (unknown) date) Former smoker unknown) (unknown) (no (unknown) (unknown) Social History (units (unknown) date) (Reviewed 07/04/21 unknown) @ 01:29 by Reinaldo Arthur DO) (unknown) (no (unknown) (unknown) Stated Complaint: (units (unknown) date) abd pain, n/v unknown) (unknown) (no (unknown) (unknown) Substance Use (units ( unknown) date) Type: does not use unknown) (unknown) (no (unknown) (unknown) Surgical History (units (unknown) date) (Reviewed 07/04/21 unknown) @ 01:29 by Reinaldo Arthur DO) (unknown) (no (unknown) (unknown) Time Seen by (units (u nknown) date) Provider: 06/12/22 unknown) 05:42 (unknown) (no (unknown) (unknown) [METOCLOPRAMIDE] (units (unknown) date) unknown) (unknown) (no (unknown) (unknown) acetaminophen 325 (units (unknown) date) mg tablet 325 mg PO unknown) Q6H PRN pain #20 tabs 02/05/20 (unknown) (no (unknown) (unknown) acetaminophen (units ( unknown) date) [Tylenol] 325 mg unknown) tablet (unknown) (no (unknown) (unknown) alcohol intake (units (unknown) date) frequency: 3 or unknown) more drinks per day (unknown) (no (unknown) (unknown) alcohol intake: (units (unknown) date) former unknown) (unknown) (no (unknown) (unknown) current (units (unkno wn) date) occupational unknown) exposures/hazards: Yes (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 with Pandemic ) (unknown) (no (unknown) (unknown) diphenhydramine (units (unknown) date) HCl 25 mg capsule unknown) 25 mg PO BEDTIME PRN insomnia #20 02/05/20 (unknown) (no (unknown) (unknown) diphenhydramine (units (unknown) date) HCl [Benadryl] 25 unknown) mg capsule (unknown) (no (unknown) (unknown) docusate sodium (units (unknown) date) 100 mg capsule 100 unknown) mg PO BID #30 caps 02/05/20 (unknown) (no (unknown) (unknown) docusate sodium (units (unknown) date) [Colace] 100 mg unknown) capsule (unknown) (no (unknown) (unknown) education level: (units (unknown) date) college unknown) (unknown) (no (unknown) (unknown) renee/synagogue: (units (unknown) date) [employer] unknown) (unknown) (no (unknown) (unknown) household members: (units (unknown) date) spouse and children unknown) (unknown) (no (unknown) (unknown) hydrocodone (units (un known) date) [HYDROCODONE] unknown) AdvReac Unknown VOMITING Verified 03/10/20 08:13 (unknown) (no (unknown) (unknown) ibuprofen 600 mg (units (unknown) date) Tablet unknown) (unknown) (no (unknown) (unknown) ibuprofen 600 mg (units (unknown) date) tablet 600 mg PO unknown) Q6HR PRN Pain, Mild 07/04/20 (unknown) (no (unknown) (unknown) marital status: (units (unknown) date) unknown) (unknown) (no (unknown) (unknown) metoclopramide (units (unknown) date) Allergy Mild unknown) RASH/HIVES Verified 03/10/20 08:13 (unknown) (no (unknown) (unknown) number of (units (unkn own) date) children: 1 unknown) (unknown) (no (unknown) (unknown) occupational (units (u nknown) date) status: employed unknown) (unknown) (no (unknown) (unknown) ondansetron 4 mg (units (unknown) date) disintegrating 4 mg unknown) PO Q8H PRN nausea and 01/01/20 (unknown) (no (unknown) (unknown) ondansetron 4 mg (units (unknown) date) disintegrating 4 mg unknown) PO Q8H PRN nausea and 02/05/20 (unknown) (no (unknown) (unknown) ondansetron 4 mg (units (unknown) date) tablet,disintegrati unknown) ng (unknown) (no (unknown) (unknown) prenat.vits,otis,mi (units (unknown) date) [id number] 1 tab unknown) PO DAILY 12/30/19 07/03/20 (unknown) (no (unknown) (unknown) prenat.vits,otis,mi (units (unknown) date) [id number] Tablet unknown) (unknown) (no (unknown) (unknown) second hand (units (un known) date) exposure: No unknown) (growing up as a child - not currently) (unknown) (no (unknown) (unknown) special renee (units ( unknown) date) needs: No unknown) (unknown) (no (unknown) (unknown) substance use (units ( unknown) date) type: does not use unknown) (unknown) (no (unknown) (unknown) tablet vomiting (units (unknown) date) #20 tabs unknown) (unknown) (no (unknown) (unknown) tablet vomiting (units (unknown) date) #30 tabs unknown) Result panel 95 (unknown) (no (unknown) (unknown) (no value) (units (unk nown) date) unknown) (unknown) (no (unknown) (unknown) (1-3) #30 tabs (units (unknown) date) unknown) (unknown) (no (unknown) (unknown) (Benadryl) caps (units (unknown) date) unknown) (unknown) (no (unknown) (unknown) (Colace) (units (unkno wn) date) unknown) (unknown) (no (unknown) (unknown) (Tylenol) (units (unkn own) date) unknown) (unknown) (no (unknown) (unknown) [phone] (units (unkn own) date) unknown) (unknown) (no (unknown) (unknown) 1 tab PO DAILY (units (unknown) date) unknown) (unknown) (no (unknown) (unknown) 100 mg PO BID Qty: (units (unknown) date) 30 0RF unknown) (unknown) (no (unknown) (unknown) 12 point review of (units (unknown) date) systems is negative unknown) except for those stated above (unknown) (no (unknown) (unknown) 25 mg PO BEDTIME (units (unknown) date) PRN (Reason: unknown) insomnia) Qty: 20 0RF (unknown) (no (unknown) (unknown) 325 mg PO Q6H PRN (units (unknown) date) (Reason: pain) Qty: unknown) 20 0RF (unknown) (no (unknown) (unknown) 31-year-old female (units (unknown) date) former smoker with unknown) history of abdominal pain, nausea and (unknown) (no (unknown) (unknown) 4 mg PO Q8H PRN (units (unknown) date) (Reason: nausea and unknown) vomiting) Qty: 20 0RF (unknown) (no (unknown) (unknown) 4 mg PO Q8H PRN (units (unknown) date) (Reason: nausea and unknown) vomiting) Qty: 30 0RF (unknown) (no (unknown) (unknown) 600 mg PO Q6HR PRN (units (unknown) date) (Reason: Pain, Mild unknown) (1-3)) Qty: 30 0RF (unknown) (no (unknown) (unknown) Age/Sex: 31 / F (units (unknown) date) unknown) (unknown) (no (unknown) (unknown) Alcoholism (units (unk nown) date) unknown) (unknown) (no (unknown) (unknown) Allergies (units (unkn own) date) unknown) (unknown) (no (unknown) (unknown) Allergy/AdvReac (units (unknown) date) Type Severity unknown) Reaction Status Date / Time (unknown) (no (unknown) (unknown) Anemia (-2018) (units (unknown) date) unknown) (unknown) (no (unknown) (unknown) BACK: Nontender (units (unknown) date) without deformity unknown) or crepitance. No flank tenderness. (unknown) (no (unknown) (unknown) CARDIOVASCULAR: (units (unknown) date) Denies chest pain, unknown) palpitations, orthopnea, edema, (unknown) (no (unknown) (unknown) CARDIOVASCULAR: (units (unknown) date) Regular rate and unknown) rhythm without murmurs, gallops, or rubs. (unknown) (no (unknown) (unknown) Chief Complaint: (units (unknown) date) Nausea/Vomiting/Antoinette unknown) rrhea (unknown) (no (unknown) (unknown) : 1990 (units (unknown) date) Acct:[id number] unknown) (unknown) (no (unknown) (unknown) Date of Service: (units (unknown) date) 06/12/22 unknown) (unknown) (no (unknown) (unknown) Departure (units (unkn own) date) unknown) (unknown) (no (unknown) (unknown) Discharge Plan (units (unknown) date) unknown) (unknown) (no (unknown) (unknown) ENT: Nose without (units (unknown) date) bleeding, purulent unknown) drainage. Throat without erythema, (unknown) (no (unknown) (unknown) ER Physician: (units ( unknown) date) Reinaldo Arthur D.O. unknown) (unknown) (no (unknown) (unknown) EXTREMITIES: No (units (unknown) date) edema or joint unknown) tenderness. (unknown) (no (unknown) (unknown) EYES: Pupils equal (units (unknown) date) round and reactive. unknown) Extraocular motions intact. No scleral (unknown) (no (unknown) (unknown) Emergency Report (units (unknown) date) unknown) (unknown) (no (unknown) (unknown) Exam Narrative: (units (unknown) date) unknown) (unknown) (no (unknown) (unknown) Exam (units (unkno wn) date) unknown) (unknown) (no (unknown) (unknown) Family History (units (unknown) date) (Reviewed 06/12/22 unknown) @ 06:13 by Reinaldo Arthur DO) (unknown) (no (unknown) (unknown) Family/Other (units (u nknown) date) Alcoholism unknown) (unknown) (no (unknown) (unknown) Family/Other (units (u nknown) date) Diabetes mellitus unknown) (unknown) (no (unknown) (unknown) Father Alcoholism (units (unknown) date) unknown) (unknown) (no (unknown) (unknown) Tonia Schneider MD (units (unknown) date) [Primary Care unknown) Provider] (unknown) (no (unknown) (unknown) GASTROINTESTINAL: (units (unknown) date) Abdomen soft, unknown) tender in lower abdomen present, nondistended. (unknown) (no (unknown) (unknown) GASTROINTESTINAL: (units (unknown) date) See HPI unknown) (unknown) (no (unknown) (unknown) GENERAL: See HPI (units (unknown) date) unknown) (unknown) (no (unknown) (unknown) GENERAL: [31] year (units (unknown) date) old patient appears unknown) stated age. Well-developed patient, in (unknown) (no (unknown) (unknown) : Denies (units (unk nown) date) dysuria, frequency, unknown) incontinence, hematuria, urinary retention. (unknown) (no (unknown) (unknown) General (units (unkno wn) date) unknown) (unknown) (no (unknown) (unknown) Grandfather (units (un known) date) Smoker unknown) (unknown) (no (unknown) (unknown) Grandfather (units (un known) date) Unknown unknown) whether patient has any health problems (unknown) (no (unknown) (unknown) Grandmother (units (un known) date) Diabetes unknown) mellitus (unknown) (no (unknown) (unknown) Grandmother (units (un known) date) Hypoglycemia unknown) (unknown) (no (unknown) (unknown) H/O dilation and (units (unknown) date) curettage unknown) (-12/14/16) (unknown) (no (unknown) (unknown) H/O wisdom tooth (units (unknown) date) extraction (-2013) unknown) (unknown) (no (unknown) (unknown) HEAD: Atraumatic. (units (unknown) date) Normocephalic. unknown) (unknown) (no (unknown) (unknown) HEENT: Denies (units ( unknown) date) sinus pain, ear unknown) pain, sore throat, difficulty swallowing, (unknown) (no (unknown) (unknown) HPI - Abdominal (units (unknown) date) Pain unknown) (unknown) (no (unknown) (unknown) HPI narrative: (units (unknown) date) unknown) (unknown) (no (unknown) (unknown) History of Present (units (unknown) date) Illness unknown) (unknown) (no (unknown) (unknown) Home Medications (units (unknown) date) unknown) (unknown) (no (unknown) (unknown) Insomnia (units (unkno wn) date) unknown) (unknown) (no (unknown) (unknown) [facility] (units (unknown) date) [address] unknown) [place] [address] (unknown) (no (unknown) (unknown) MUSCULOSKELETAL: (units (unknown) date) denies weakness, unknown) joint pain, or bony pain (unknown) (no (unknown) (unknown) Medical History (units (unknown) date) (Reviewed 06/12/22 unknown) @ 06:13 by Reinaldo Arthur DO) (unknown) (no (unknown) (unknown) Medication (units (unk nown) date) Instructions unknown) Recorded Confirmed (unknown) (no (unknown) (unknown) Medication (units (unk nown) date) Instructions unknown) Recorded (unknown) (no (unknown) (unknown) Menometrorrhagia (units (unknown) date) unknown) (unknown) (no (unknown) (unknown) Mother Diabetes (units (unknown) date) mellitus unknown) (unknown) (no (unknown) (unknown) NECK: Trachea (units ( unknown) date) midline. Non tender unknown) (unknown) (no (unknown) (unknown) NEURO: AOx3. (units (u nknown) date) unknown) (unknown) (no (unknown) (unknown) NEUROLOGIC: Denies (units (unknown) date) weakness, headache, unknown) numbness, change in speech, confusion, (unknown) (no (unknown) (unknown) Narrative (units (unkn own) date) unknown) (unknown) (no (unknown) (unknown) Narrative: (units (unk nown) date) unknown) (unknown) (no (unknown) (unknown) No Action (units (unkn own) date) unknown) (unknown) (no (unknown) (unknown) Obesity (units (unkno wn) date) unknown) (unknown) (no (unknown) (unknown) Overweight (units (unk nown) date) unknown) (unknown) (no (unknown) (unknown) PSYCHIATRIC: No (units (unknown) date) concerning unknown) psychosocial issues. (unknown) (no (unknown) (unknown) Patient History (units (unknown) date) unknown) (unknown) (no (unknown) (unknown) Patient: (units (unkno wn) date) Sarah Soto R unknown) MR#: M (unknown) (no (unknown) (unknown) Prescriptions: (units (unknown) date) unknown) (unknown) (no (unknown) (unknown) Previous Rx's (units ( unknown) date) unknown) (unknown) (no (unknown) (unknown) RESPIRATORY: Clear (units (unknown) date) to auscultation. unknown) Breath sounds equal bilaterally. No wheezes, (unknown) (no (unknown) (unknown) RESPIRATORY: (units (u nknown) date) Denies dyspnea, unknown) cough, wheezing, hemoptysis, sputum. (unknown) (no (unknown) (unknown) Referrals: (units (unk nown) date) unknown) (unknown) (no (unknown) (unknown) Related Data (units (u nknown) date) unknown) (unknown) (no (unknown) (unknown) Review of Systems (units (unknown) date) unknown) (unknown) (no (unknown) (unknown) S/P myringotomy (units (unknown) date) with insertion of unknown) tube (unknown) (no (unknown) (unknown) SKIN: Denies rash, (units (unknown) date) skin lesions, or unknown) other (unknown) (no (unknown) (unknown) SKIN: No rash or (units (unknown) date) erythema of visible unknown) areas (unknown) (no (unknown) (unknown) (spontaneous (units (unknown) date) vaginal delivery) unknown) (-09/05/18) (unknown) (no (unknown) (unknown) Signed By: (units (unk nown) date) unknown) (unknown) (no (unknown) (unknown) Smoker (units (unkno wn) date) unknown) (unknown) (no (unknown) (unknown) Smoking Status: (units (unknown) date) Former smoker unknown) (unknown) (no (unknown) (unknown) Social History (units (unknown) date) (Reviewed 06/12/22 unknown) @ 06:13 by Reinaldo Arthur DO) (unknown) (no (unknown) (unknown) Stated Complaint: (units (unknown) date) abd pain, n/v unknown) (unknown) (no (unknown) (unknown) Substance Use (units ( unknown) date) Type: does not use unknown) (unknown) (no (unknown) (unknown) Surgical History (units (unknown) date) (Reviewed 06/12/22 unknown) @ 06:13 by Reinaldo Arthur DO) (unknown) (no (unknown) (unknown) Time Seen by (units (u nknown) date) Provider: 06/12/22 unknown) 05:42 (unknown) (no (unknown) (unknown) [METOCLOPRAMIDE] (units (unknown) date) unknown) (unknown) (no (unknown) (unknown) abdominal and (units ( unknown) date) pelvic pain along unknown) with persistent nausea and vomiting. She states (unknown) (no (unknown) (unknown) acetaminophen 325 (units (unknown) date) mg tablet 325 mg PO unknown) Q6H PRN pain #20 tabs 02/05/20 (unknown) (no (unknown) (unknown) acetaminophen (units ( unknown) date) [Tylenol] 325 mg unknown) tablet (unknown) (no (unknown) (unknown) alcohol intake (units (unknown) date) frequency: 3 or unknown) more drinks per day (unknown) (no (unknown) (unknown) alcohol intake: (units (unknown) date) former unknown) (unknown) (no (unknown) (unknown) current (units (unkno wn) date) occupational unknown) exposures/hazards: Yes (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 with Pandemic ) (unknown) (no (unknown) (unknown) diphenhydramine (units (unknown) date) HCl 25 mg capsule unknown) 25 mg PO BEDTIME PRN insomnia #20 02/05/20 (unknown) (no (unknown) (unknown) diphenhydramine (units (unknown) date) HCl [Benadryl] 25 unknown) mg capsule (unknown) (no (unknown) (unknown) dizziness. (units (unk nown) date) unknown) (unknown) (no (unknown) (unknown) docusate sodium (units (unknown) date) 100 mg capsule 100 unknown) mg PO BID #30 caps 02/05/20 (unknown) (no (unknown) (unknown) docusate sodium (units (unknown) date) [Colace] 100 mg unknown) capsule (unknown) (no (unknown) (unknown) dysuria, frequency (units (unknown) date) or urgency. She unknown) denies any vaginal discharge. She states (unknown) (no (unknown) (unknown) education level: (units (unknown) date) college unknown) (unknown) (no (unknown) (unknown) renee/synagogue: (units (unknown) date) [employer] unknown) (unknown) (no (unknown) (unknown) household members: (units (unknown) date) spouse and children unknown) (unknown) (no (unknown) (unknown) hydrocodone (units (un known) date) [HYDROCODONE] unknown) AdvReac Unknown VOMITING Verified 03/10/20 08:13 (unknown) (no (unknown) (unknown) ibuprofen 600 mg (units (unknown) date) Tablet unknown) (unknown) (no (unknown) (unknown) ibuprofen 600 mg (units (unknown) date) tablet 600 mg PO unknown) Q6HR PRN Pain, Mild 07/04/20 (unknown) (no (unknown) (unknown) icterus. No (units (un known) date) injection or unknown) drainage. (unknown) (no (unknown) (unknown) ill persons. She (units (unknown) date) is currently having unknown) her menstrual period. She denies any (unknown) (no (unknown) (unknown) improves with (units ( unknown) date) rest. She denies unknown) any radiation of her pain. (unknown) (no (unknown) (unknown) marital status: (units (unknown) date) unknown) (unknown) (no (unknown) (unknown) metoclopramide (units (unknown) date) Allergy Mild unknown) RASH/HIVES Verified 03/10/20 08:13 (unknown) (no (unknown) (unknown) number of (units (unkn own) date) children: 1 unknown) (unknown) (no (unknown) (unknown) obvious distress. (units (unknown) date) unknown) (unknown) (no (unknown) (unknown) occupational (units (u nknown) date) status: employed unknown) (unknown) (no (unknown) (unknown) ondansetron 4 mg (units (unknown) date) disintegrating 4 mg unknown) PO Q8H PRN nausea and 01/01/20 (unknown) (no (unknown) (unknown) ondansetron 4 mg (units (unknown) date) disintegrating 4 mg unknown) PO Q8H PRN nausea and 02/05/20 (unknown) (no (unknown) (unknown) ondansetron 4 mg (units (unknown) date) tablet,disintegrati unknown) ng (unknown) (no (unknown) (unknown) prenat.vits,otis,mi (units (unknown) date) i-[id number]-ribjl 1 tab unknown) PO DAILY 12/30/19 07/03/20 (unknown) (no (unknown) (unknown) prenat.vits,otis,mi (units (unknown) date) e-uobj-[id number] Tablet unknown) (unknown) (no (unknown) (unknown) rales, or rhonchi. (units (unknown) date) unknown) (unknown) (no (unknown) (unknown) second hand (units (un known) date) exposure: No unknown) (growing up as a child - not currently) (unknown) (no (unknown) (unknown) seizures, (units (unkn own) date) incoordination. unknown) (unknown) (no (unknown) (unknown) somewhat (units (unkno wn) date) reminiscent of when unknown) she had morning sickness with a . She (unknown) (no (unknown) (unknown) special renee (units ( unknown) date) needs: No unknown) (unknown) (no (unknown) (unknown) states her pain is (units (unknown) date) rather persistent unknown) and seems to be worse with motion and (unknown) (no (unknown) (unknown) substance use (units ( unknown) date) type: does not use unknown) (unknown) (no (unknown) (unknown) tablet vomiting (units (unknown) date) #20 tabs unknown) (unknown) (no (unknown) (unknown) tablet vomiting (units (unknown) date) #30 tabs unknown) (unknown) (no (unknown) (unknown) that she is become (units (unknown) date) dizzy, weak and unknown) lightheaded. She states that this is (unknown) (no (unknown) (unknown) that she is had no (units (unknown) date) change in diet or unknown) medications and denies exposure to other (unknown) (no (unknown) (unknown) tonsillar (units (unkn own) date) hypertrophy or unknown) exudate. Airway patent. (unknown) (no (unknown) (unknown) vomiting, ovarian (units (unknown) date) cysts, alcohol unknown) abuse presents with 2 days of severe lower Result panel 96 (unknown) (no (unknown) (unknown) (no value) (units (unk nown) date) unknown) (unknown) (no (unknown) (unknown) (1-3) #30 tabs (units (unknown) date) unknown) (unknown) (no (unknown) (unknown) (Benadryl) caps (units (unknown) date) unknown) (unknown) (no (unknown) (unknown) (Colace) (units (unkno wn) date) unknown) (unknown) (no (unknown) (unknown) (Tylenol) (units (unkn own) date) unknown) (unknown) (no (unknown) (unknown) [id number] (units (unkn own) date) unknown) (unknown) (no (unknown) (unknown) 06/12/22 06:06 (units (unknown) date) unknown) (unknown) (no (unknown) (unknown) 06/12/22 06:47 (units (unknown) date) unknown) (unknown) (no (unknown) (unknown) 06/12/22 (units (unkno wn) date) unknown) (unknown) (no (unknown) (unknown) 05:42 (units (unkno wn) date) unknown) (unknown) (no (unknown) (unknown) 1 tab PO DAILY (units (unknown) date) unknown) (unknown) (no (unknown) (unknown) 100 mg PO BID Qty: (units (unknown) date) 30 0RF unknown) (unknown) (no (unknown) (unknown) 12 point review of (units (unknown) date) systems is negative unknown) except for those stated above (unknown) (no (unknown) (unknown) 25 mg PO BEDTIME (units (unknown) date) PRN (Reason: unknown) insomnia) Qty: 20 0RF (unknown) (no (unknown) (unknown) 325 mg PO Q6H PRN (units (unknown) date) (Reason: pain) Qty: unknown) 20 0RF (unknown) (no (unknown) (unknown) 31-year-old female (units (unknown) date) former smoker with unknown) history of abdominal pain, nausea and (unknown) (no (unknown) (unknown) 4 mg PO Q8H PRN (units (unknown) date) (Reason: nausea and unknown) vomiting) Qty: 20 0RF (unknown) (no (unknown) (unknown) 4 mg PO Q8H PRN (units (unknown) date) (Reason: nausea and unknown) vomiting) Qty: 30 0RF (unknown) (no (unknown) (unknown) 600 mg PO Q6HR PRN (units (unknown) date) (Reason: Pain, Mild unknown) (1-3)) Qty: 30 0RF (unknown) (no (unknown) (unknown) Age/Sex: 31 / F (units (unknown) date) unknown) (unknown) (no (unknown) (unknown) Alcoholism (units (unk nown) date) unknown) (unknown) (no (unknown) (unknown) Allergies (units (unkn own) date) unknown) (unknown) (no (unknown) (unknown) Allergy/AdvReac (units (unknown) date) Type Severity unknown) Reaction Status Date / Time (unknown) (no (unknown) (unknown) Anemia (-2018) (units (unknown) date) unknown) (unknown) (no (unknown) (unknown) BACK: Nontender (units (unknown) date) without deformity unknown) or crepitance. No flank tenderness. (unknown) (no (unknown) (unknown) Blood Pressure (units (unknown) date) 101/59 L 06/12/22 unknown) 05:42 (unknown) (no (unknown) (unknown) Blood Pressure (units (unknown) date) 101/59 L unknown) (unknown) (no (unknown) (unknown) CARDIOVASCULAR: (units (unknown) date) Denies chest pain, unknown) palpitations, orthopnea, edema, (unknown) (no (unknown) (unknown) CARDIOVASCULAR: (units (unknown) date) Regular rate and unknown) rhythm without murmurs, gallops, or rubs. (unknown) (no (unknown) (unknown) Chief Complaint: (units (unknown) date) Nausea/Vomiting/[place]toinette unknown) rrhea (unknown) (no (unknown) (unknown) Complete Blood (units (unknown) date) Count AUTO DIFF unknown) Stat (unknown) (no (unknown) (unknown) Comprehensive (units ( unknown) date) Metabolic Panel unknown) Stat (unknown) (no (unknown) (unknown) Course (units (unkno wn) date) unknown) (unknown) (no (unknown) (unknown) Covid-19 + FLU A/B (units (unknown) date) + RSV - PCR Stat unknown) (unknown) (no (unknown) (unknown) : 1990 (units (unknown) date) Acct:[id number] unknown) (unknown) (no (unknown) (unknown) Date of Service: (units (unknown) date) 06/12/22 unknown) (unknown) (no (unknown) (unknown) Departure (units (unkn own) date) unknown) (unknown) (no (unknown) (unknown) Discharge Plan (units (unknown) date) unknown) (unknown) (no (unknown) (unknown) Discontinued (units (u nknown) date) Medications unknown) (unknown) (no (unknown) (unknown) Documented By: BS (units (unknown) date) unknown) (unknown) (no (unknown) (unknown) ED Orders (units (unkn own) date) unknown) (unknown) (no (unknown) (unknown) ENT: Nose without (units (unknown) date) bleeding, purulent unknown) drainage. Throat without erythema, (unknown) (no (unknown) (unknown) ER Physician: (units ( unknown) date) Will Benitez D.O. unknown) (unknown) (no (unknown) (unknown) EXTREMITIES: No (units (unknown) date) edema or joint unknown) tenderness. (unknown) (no (unknown) (unknown) EYES: Pupils equal (units (unknown) date) round and reactive. unknown) Extraocular motions intact. No scleral (unknown) (no (unknown) (unknown) Emergency Report (units (unknown) date) unknown) (unknown) (no (unknown) (unknown) Exam Narrative: (units (unknown) date) unknown) (unknown) (no (unknown) (unknown) Exam (units (unkno wn) date) unknown) (unknown) (no (unknown) (unknown) Family History (units (unknown) date) (Reviewed 06/12/22 unknown) @ 06:13 by Reinaldo Arthur DO) (unknown) (no (unknown) (unknown) Family/Other (units (u nknown) date) Alcoholism unknown) (unknown) (no (unknown) (unknown) Family/Other (units (u nknown) date) Diabetes mellitus unknown) (unknown) (no (unknown) (unknown) Father Alcoholism (units (unknown) date) unknown) (unknown) (no (unknown) (unknown) Tonia Schneider MD (units (unknown) date) [Primary Care unknown) Provider] (unknown) (no (unknown) (unknown) GASTROINTESTINAL: (units (unknown) date) Abdomen soft, unknown) tender in lower abdomen present, nondistended. (unknown) (no (unknown) (unknown) GASTROINTESTINAL: (units (unknown) date) See HPI unknown) (unknown) (no (unknown) (unknown) GENERAL: See HPI (units (unknown) date) unknown) (unknown) (no (unknown) (unknown) GENERAL: [31] year (units (unknown) date) old patient appears unknown) stated age. Well-developed patient, in (unknown) (no (unknown) (unknown) : Denies (units (unk nown) date) dysuria, frequency, unknown) incontinence, hematuria, urinary retention. (unknown) (no (unknown) (unknown) General (units (unkno wn) date) unknown) (unknown) (no (unknown) (unknown) Grandfather (units (un known) date) Smoker unknown) (unknown) (no (unknown) (unknown) Grandfather (units (un known) date) Unknown unknown) whether patient has any health problems (unknown) (no (unknown) (unknown) Grandmother (units (un known) date) Diabetes unknown) mellitus (unknown) (no (unknown) (unknown) Grandmother (units (un known) date) Hypoglycemia unknown) (unknown) (no (unknown) (unknown) H/O dilation and (units (unknown) date) curettage unknown) (-12/14/16) (unknown) (no (unknown) (unknown) H/O wisdom tooth (units (unknown) date) extraction () unknown) (unknown) (no (unknown) (unknown) HEAD: Atraumatic. (units (unknown) date) Normocephalic. unknown) (unknown) (no (unknown) (unknown) HEENT: Denies (units ( unknown) date) sinus pain, ear unknown) pain, sore throat, difficulty swallowing, (unknown) (no (unknown) (unknown) HPI - Abdominal (units (unknown) date) Pain unknown) (unknown) (no (unknown) (unknown) HPI narrative: (units (unknown) date) unknown) (unknown) (no (unknown) (unknown) History of Present (units (unknown) date) Illness unknown) (unknown) (no (unknown) (unknown) Home Medications (units (unknown) date) unknown) (unknown) (no (unknown) (unknown) Hydromorphone HCl (units (unknown) date) (Hydromorphone 0.5 unknown) Mg Inj) 0.5 mg IV NOW ONE (unknown) (no (unknown) (unknown) Hydromorphone HCl (units (unknown) date) (Hydromorphone 1 Mg unknown) Inj) 1 mg IM NOW ONE (unknown) (no (unknown) (unknown) Initial Vital (units ( unknown) date) Signs unknown) (unknown) (no (unknown) (unknown) Initial Vital (units ( unknown) date) Signs: unknown) (unknown) (no (unknown) (unknown) Insomnia (units (unkno wn) date) unknown) (unknown) (no (unknown) (unknown) [facility] (units (unknown) date) [address] [place] [address] Street unknown) [place] [address] (unknown) (no (unknown) (unknown) Lab Data (units (unkno wn) date) unknown) (unknown) (no (unknown) (unknown) Lactate (Lactic (units (unknown) date) Acid) Stat unknown) (unknown) (no (unknown) (unknown) Last Admin: (units (un known) date) 06/12/22 06:52 unknown) Dose: 4 mg (unknown) (no (unknown) (unknown) Last Admin: (units (un known) date) 06/12/22 06:54 unknown) Dose: 1 mg (unknown) (no (unknown) (unknown) Lipase Stat (units (un known) date) unknown) (unknown) (no (unknown) (unknown) MDM - Abdominal (units (unknown) date) Pain unknown) (unknown) (no (unknown) (unknown) MUSCULOSKELETAL: (units (unknown) date) denies weakness, unknown) joint pain, or bony pain (unknown) (no (unknown) (unknown) Medical History (units (unknown) date) (Reviewed 06/12/22 unknown) @ 06:13 by Reinaldo Arthur DO) (unknown) (no (unknown) (unknown) Medication (units (unk nown) date) Instructions unknown) Recorded Confirmed (unknown) (no (unknown) (unknown) Medication (units (unk nown) date) Instructions unknown) Recorded (unknown) (no (unknown) (unknown) Menometrorrhagia (units (unknown) date) unknown) (unknown) (no (unknown) (unknown) Mother Diabetes (units (unknown) date) mellitus unknown) (unknown) (no (unknown) (unknown) NECK: Trachea (units ( unknown) date) midline. Non tender unknown) (unknown) (no (unknown) (unknown) NEURO: AOx3. (units (u nknown) date) unknown) (unknown) (no (unknown) (unknown) NEUROLOGIC: Denies (units (unknown) date) weakness, headache, unknown) numbness, change in speech, confusion, (unknown) (no (unknown) (unknown) Narrative (units (unkn own) date) unknown) (unknown) (no (unknown) (unknown) Narrative: (units (unk nown) date) unknown) (unknown) (no (unknown) (unknown) No Action (units (unkn own) date) unknown) (unknown) (no (unknown) (unknown) Obesity (units (unkno wn) date) unknown) (unknown) (no (unknown) (unknown) Ondansetron HCl (units (unknown) date) (Ondansetron 4 Mg unknown) Odt) 4 mg SL NOW PRN (unknown) (no (unknown) (unknown) Ondansetron HCl (units (unknown) date) (Ondansetron 4 Mg/2 unknown) Ml Inj) 4 mg IV NOW ONE (unknown) (no (unknown) (unknown) Ondansetron HCl (units (unknown) date) (Ondansetron 4 Mg/2 unknown) Ml Inj) 4 mg IV NOW PRN (unknown) (no (unknown) (unknown) Ordered: (units (unkno wn) date) unknown) (unknown) (no (unknown) (unknown) Orders (units (unkno wn) date) unknown) (unknown) (no (unknown) (unknown) Overweight (units (unk nown) date) unknown) (unknown) (no (unknown) (unknown) Oxygen Delivery (units (unknown) date) Method 06/12/22 unknown) 05:42 (unknown) (no (unknown) (unknown) Oxygen Delivery (units (unknown) date) Method Room Air unknown) (unknown) (no (unknown) (unknown) PRN Reason: Nausea (units (unknown) date) And Vomiting unknown) (unknown) (no (unknown) (unknown) PSYCHIATRIC: No (units (unknown) date) concerning unknown) psychosocial issues. (unknown) (no (unknown) (unknown) Pantoprazole (units (u nknown) date) Sodium unknown) (Pantoprazole 40 Mg Vial) 40 mg IV NOW ONE (unknown) (no (unknown) (unknown) Patient History (units (unknown) date) unknown) (unknown) (no (unknown) (unknown) Patient: (units (unkno wn) date) Sarah Soto unknown) MR#: M (unknown) (no (unknown) (unknown) Prescriptions: (units (unknown) date) unknown) (unknown) (no (unknown) (unknown) Previous Rx's (units ( unknown) date) unknown) (unknown) (no (unknown) (unknown) Pulse Oximetry 100 (units (unknown) date) 06/12/22 05:42 unknown) (unknown) (no (unknown) (unknown) Pulse Oximetry 100 (units (unknown) date) unknown) (unknown) (no (unknown) (unknown) Pulse Rate 103 H (units (unknown) date) 06/12/22 05:42 unknown) (unknown) (no (unknown) (unknown) Pulse Rate 103 H (units (unknown) date) unknown) (unknown) (no (unknown) (unknown) RESPIRATORY: Clear (units (unknown) date) to auscultation. unknown) Breath sounds equal bilaterally. No wheezes, (unknown) (no (unknown) (unknown) RESPIRATORY: (units (u nknown) date) Denies dyspnea, unknown) cough, wheezing, hemoptysis, sputum. (unknown) (no (unknown) (unknown) Referrals: (units (unk nown) date) unknown) (unknown) (no (unknown) (unknown) Related Data (units (u nknown) date) unknown) (unknown) (no (unknown) (unknown) Respiratory Rate (units (unknown) date) 22 06/12/22 05:42 unknown) (unknown) (no (unknown) (unknown) Respiratory Rate (units (unknown) date) 22 unknown) (unknown) (no (unknown) (unknown) Review of Systems (units (unknown) date) unknown) (unknown) (no (unknown) (unknown) S/P myringotomy (units (unknown) date) with insertion of unknown) tube (unknown) (no (unknown) (unknown) SKIN: Denies rash, (units (unknown) date) skin lesions, or unknown) other (unknown) (no (unknown) (unknown) SKIN: No rash or (units (unknown) date) erythema of visible unknown) areas (unknown) (no (unknown) (unknown) (spontaneous (units (unknown) date) vaginal delivery) unknown) (-09/05/18) (unknown) (no (unknown) (unknown) Signed By: (units (unk nown) date) unknown) (unknown) (no (unknown) (unknown) Smoker (units (unkno wn) date) unknown) (unknown) (no (unknown) (unknown) Smoking Status: (units (unknown) date) Former smoker unknown) (unknown) (no (unknown) (unknown) Social History (units (unknown) date) (Reviewed 06/12/22 unknown) @ 06:13 by Reinaldo Arthur DO) (unknown) (no (unknown) (unknown) Stated Complaint: (units (unknown) date) abd pain, n/v unknown) (unknown) (no (unknown) (unknown) Stop: 06/12/22 (units (unknown) date) 06:06 unknown) (unknown) (no (unknown) (unknown) Stop: 06/12/22 (units (unknown) date) 06:48 unknown) (unknown) (no (unknown) (unknown) Substance Use (units ( unknown) date) Type: does not use unknown) (unknown) (no (unknown) (unknown) Surgical History (units (unknown) date) (Reviewed 06/12/22 unknown) @ 06:13 by Reinaldo Arthur DO) (unknown) (no (unknown) (unknown) Temperature 97.7 F (units (unknown) date) 06/12/22 05:42 unknown) (unknown) (no (unknown) (unknown) Temperature 97.7 F (units (unknown) date) unknown) (unknown) (no (unknown) (unknown) Time Seen by (units (u nknown) date) Provider: 06/12/22 unknown) 05:42 (unknown) (no (unknown) (unknown) Vital Signs - 8 hr (units (unknown) date) unknown) (unknown) (no (unknown) (unknown) Vital Signs (units (un known) date) unknown) (unknown) (no (unknown) (unknown) Vital signs: (units (u nknown) date) unknown) (unknown) (no (unknown) (unknown) [Embedded Image (units (unknown) date) Not Available] unknown) (unknown) (no (unknown) (unknown) [METOCLOPRAMIDE] (units (unknown) date) unknown) (unknown) (no (unknown) (unknown) abdominal and (units ( unknown) date) pelvic pain along unknown) with persistent nausea and vomiting. She states (unknown) (no (unknown) (unknown) acetaminophen 325 (units (unknown) date) mg tablet 325 mg PO unknown) Q6H PRN pain #20 tabs 02/05/20 (unknown) (no (unknown) (unknown) acetaminophen (units ( unknown) date) [Tylenol] 325 mg unknown) tablet (unknown) (no (unknown) (unknown) alcohol intake (units (unknown) date) frequency: 3 or unknown) more drinks per day (unknown) (no (unknown) (unknown) alcohol intake: (units (unknown) date) former unknown) (unknown) (no (unknown) (unknown) current (units (unkno wn) date) occupational unknown) exposures/hazards: Yes (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 with Pandemic ) (unknown) (no (unknown) (unknown) diphenhydramine (units (unknown) date) HCl 25 mg capsule unknown) 25 mg PO BEDTIME PRN insomnia #20 02/05/20 (unknown) (no (unknown) (unknown) diphenhydramine (units (unknown) date) HCl [Benadryl] 25 unknown) mg capsule (unknown) (no (unknown) (unknown) dizziness. (units (unk nown) date) unknown) (unknown) (no (unknown) (unknown) docusate sodium (units (unknown) date) 100 mg capsule 100 unknown) mg PO BID #30 caps 02/05/20 (unknown) (no (unknown) (unknown) docusate sodium (units (unknown) date) [Colace] 100 mg unknown) capsule (unknown) (no (unknown) (unknown) dysuria, frequency (units (unknown) date) or urgency. She unknown) denies any vaginal discharge. She states (unknown) (no (unknown) (unknown) education level: (units (unknown) date) college unknown) (unknown) (no (unknown) (unknown) renee/synagogue: (units (unknown) date) [employer] unknown) (unknown) (no (unknown) (unknown) household members: (units (unknown) date) spouse and children unknown) (unknown) (no (unknown) (unknown) hydrocodone (units (un known) date) [HYDROCODONE] unknown) AdvReac Unknown VOMITING Verified 03/10/20 08:13 (unknown) (no (unknown) (unknown) ibuprofen 600 mg (units (unknown) date) Tablet unknown) (unknown) (no (unknown) (unknown) ibuprofen 600 mg (units (unknown) date) tablet 600 mg PO unknown) Q6HR PRN Pain, Mild 07/04/20 (unknown) (no (unknown) (unknown) icterus. No (units (un known) date) injection or unknown) drainage. (unknown) (no (unknown) (unknown) ill persons. She (units (unknown) date) is currently having unknown) her menstrual period. She denies any (unknown) (no (unknown) (unknown) improves with (units ( unknown) date) rest. She denies unknown) any radiation of her pain. (unknown) (no (unknown) (unknown) marital status: (units (unknown) date) unknown) (unknown) (no (unknown) (unknown) metoclopramide (units (unknown) date) Allergy Mild unknown) RASH/HIVES Verified 03/10/20 08:13 (unknown) (no (unknown) (unknown) number of (units (unkn own) date) children: 1 unknown) (unknown) (no (unknown) (unknown) obvious distress. (units (unknown) date) unknown) (unknown) (no (unknown) (unknown) occupational (units (u nknown) date) status: employed unknown) (unknown) (no (unknown) (unknown) ondansetron 4 mg (units (unknown) date) disintegrating 4 mg unknown) PO Q8H PRN nausea and 01/01/20 (unknown) (no (unknown) (unknown) ondansetron 4 mg (units (unknown) date) disintegrating 4 mg unknown) PO Q8H PRN nausea and 02/05/20 (unknown) (no (unknown) (unknown) ondansetron 4 mg (units (unknown) date) tablet,disintegrati unknown) ng (unknown) (no (unknown) (unknown) prenat.vits,otis,mi (units (unknown) date) [id number] 1 tab unknown) PO DAILY 12/30/19 07/03/20 (unknown) (no (unknown) (unknown) prenat.vits,otis,mi (units (unknown) date) [id number] Tablet unknown) (unknown) (no (unknown) (unknown) rales, or rhonchi. (units (unknown) date) unknown) (unknown) (no (unknown) (unknown) second hand (units (un known) date) exposure: No unknown) (growing up as a child - not currently) (unknown) (no (unknown) (unknown) seizures, (units (unkn own) date) incoordination. unknown) (unknown) (no (unknown) (unknown) somewhat (units (unkno wn) date) reminiscent of when unknown) she had morning sickness with a . She (unknown) (no (unknown) (unknown) special renee (units ( unknown) date) needs: No unknown) (unknown) (no (unknown) (unknown) states her pain is (units (unknown) date) rather persistent unknown) and seems to be worse with motion and (unknown) (no (unknown) (unknown) substance use (units ( unknown) date) type: does not use unknown) (unknown) (no (unknown) (unknown) tablet vomiting (units (unknown) date) #20 tabs unknown) (unknown) (no (unknown) (unknown) tablet vomiting (units (unknown) date) #30 tabs unknown) (unknown) (no (unknown) (unknown) that she is become (units (unknown) date) dizzy, weak and unknown) lightheaded. She states that this is (unknown) (no (unknown) (unknown) that she is had no (units (unknown) date) change in diet or unknown) medications and denies exposure to other (unknown) (no (unknown) (unknown) tonsillar (units (unkn own) date) hypertrophy or unknown) exudate. Airway patent. (unknown) (no (unknown) (unknown) vomiting, ovarian (units (unknown) date) cysts, alcohol unknown) abuse presents with 2 days of severe lower Result panel 97 (unknown) (no date) (unknown) (unknown) > 60 ml/min (unkn own) (unknown) (no date) (unknown) (unknown) > 60 ml/min (unkn own) (unknown) (no date) (unknown) (unknown) 0.6 mg/dl (unkn own) (unknown) (no date) (unknown) (unknown) 0.62 mg/dl (unkn own) (unknown) (no date) (unknown) (unknown) 1.6 (units unknown) (unknown) (unknown) (no date) (unknown) (unknown) 11 mg/dl (unkn own) (unknown) (no date) (unknown) (unknown) 122 mg/dl (unkn own) (unknown) (no date) (unknown) (unknown) 122 mg/dl (unkn own) (unknown) (no date) (unknown) (unknown) 134 u/l (unkn own) (unknown) (no date) (unknown) (unknown) 137 mmol/l (unkn own) (unknown) (no date) (unknown) (unknown) 15 iu/l (unkn own) (unknown) (no date) (unknown) (unknown) 17.7 (units unknown) (unknown) (unknown) (no date) (unknown) (unknown) 2.7 g/dl (unkn own) (unknown) (no date) (unknown) (unknown) 2.7 mmol/l (unkn own) (unknown) (no date) (unknown) (unknown) 23 mmol/l (unkn own) (unknown) (no date) (unknown) (unknown) 3.7 mmol/l (unkn own) (unknown) (no date) (unknown) (unknown) 4.3 g/dl (unkn own) (unknown) (no date) (unknown) (unknown) 45 iu/l (unkn own) (unknown) (no date) (unknown) (unknown) 7.0 g/dl (unkn own) (unknown) (no date) (unknown) (unknown) 74 u/l (unkn own) (unknown) (no date) (unknown) (unknown) 8.2 mg/dl (unkn own) (unknown) (no date) (unknown) (unknown) 99 mmol/l (unkn own) Result panel 98 (unknown) (no date) (unknown) (unknown) 0 /ul (unkn own) (unknown) (no date) (unknown) (unknown) 0 /ul (unkn own) (unknown) (no date) (unknown) (unknown) 0.2 % (unkn own) (unknown) (no date) (unknown) (unknown) 1.0 % (unkn own) (unknown) (no date) (unknown) (unknown) 10.6 g/dl (unkn own) (unknown) (no date) (unknown) (unknown) 1000 /ul (unkn own) (unknown) (no date) (unknown) (unknown) 16.1 % (unkn own) (unknown) (no date) (unknown) (unknown) 200 /ul (unkn own) (unknown) (no date) (unknown) (unknown) 25.3 % (unkn own) (unknown) (no date) (unknown) (unknown) 25.9 pg (unkn own) (unknown) (no date) (unknown) (unknown) 2800 /ul (unkn own) (unknown) (no date) (unknown) (unknown) 32.2 % (unkn own) (unknown) (no date) (unknown) (unknown) 33.0 % (unkn own) (unknown) (no date) (unknown) (unknown) 4.0 x10 3/ul (unkn own) (unknown) (no date) (unknown) (unknown) 4.11 x10 6/ul (unkn own) (unknown) (no date) (unknown) (unknown) 4.8 % (unkn own) (unknown) (no date) (unknown) (unknown) 63 x10 3/ul (unkn own) (unknown) (no date) (unknown) (unknown) 68.7 % (unkn own) (unknown) (no date) (unknown) (unknown) 78.4 fl (unkn own) Result panel 99 (unknown) (no (unknown) (unknown) (no value) (units (unk nown) date) unknown) (unknown) (no (unknown) (unknown) (1-3) #30 tabs (units (unknown) date) unknown) (unknown) (no (unknown) (unknown) (Benadryl) caps (units (unknown) date) unknown) (unknown) (no (unknown) (unknown) (Colace) (units (unkno wn) date) unknown) (unknown) (no (unknown) (unknown) (Tylenol) (units (unkn own) date) unknown) (unknown) (no (unknown) (unknown) [id number] (units (unkn own) date) unknown) (unknown) (no (unknown) (unknown) 06/12/22 06/12/22 (units (unknown) date) 06/12/22 unknown) Range/Units (unknown) (no (unknown) (unknown) 06/12/22 06:06 (units (unknown) date) unknown) (unknown) (no (unknown) (unknown) 06/12/22 06:47 (units (unknown) date) unknown) (unknown) (no (unknown) (unknown) 06/12/22 (units (unkno wn) date) unknown) (unknown) (no (unknown) (unknown) 05:42 (units (unkno wn) date) unknown) (unknown) (no (unknown) (unknown) 06:47 06:47 06:47 (units (unknown) date) unknown) (unknown) (no (unknown) (unknown) 1 tab PO DAILY (units (unknown) date) unknown) (unknown) (no (unknown) (unknown) 100 mg PO BID Qty: (units (unknown) date) 30 0RF unknown) (unknown) (no (unknown) (unknown) 12 point review of (units (unknown) date) systems is negative unknown) except for those stated above (unknown) (no (unknown) (unknown) 25 mg PO BEDTIME (units (unknown) date) PRN (Reason: unknown) insomnia) Qty: 20 0RF (unknown) (no (unknown) (unknown) 325 mg PO Q6H PRN (units (unknown) date) (Reason: pain) Qty: unknown) 20 0RF (unknown) (no (unknown) (unknown) 31-year-old female (units (unknown) date) former smoker with unknown) history of abdominal pain, nausea and (unknown) (no (unknown) (unknown) 4 mg PO Q8H PRN (units (unknown) date) (Reason: nausea and unknown) vomiting) Qty: 20 0RF (unknown) (no (unknown) (unknown) 4 mg PO Q8H PRN (units (unknown) date) (Reason: nausea and unknown) vomiting) Qty: 30 0RF (unknown) (no (unknown) (unknown) 600 mg PO Q6HR PRN (units (unknown) date) (Reason: Pain, Mild unknown) (1-3)) Qty: 30 0RF (unknown) (no (unknown) (unknown) ALT 15 (<35) IU/L (units (unknown) date) unknown) (unknown) (no (unknown) (unknown) AST 45 H (14-36) (units (unknown) date) IU/L unknown) (unknown) (no (unknown) (unknown) Age/Sex: 31 / F (units (unknown) date) unknown) (unknown) (no (unknown) (unknown) Albumin 4.3 (units (un known) date) (3.5-5.0) g/dL unknown) (unknown) (no (unknown) (unknown) Albumin/Globulin (units (unknown) date) Ratio 1.6 (1.0-2.8) unknown) (unknown) (no (unknown) (unknown) Alcoholism (units (unk nown) date) unknown) (unknown) (no (unknown) (unknown) Alkaline (units (unkno wn) date) Phosphatase 74 unknown) (38-126) U/L (unknown) (no (unknown) (unknown) Allergies (units (unkn own) date) unknown) (unknown) (no (unknown) (unknown) Allergy/AdvReac (units (unknown) date) Type Severity unknown) Reaction Status Date / Time (unknown) (no (unknown) (unknown) Anemia (-2018) (units (unknown) date) unknown) (unknown) (no (unknown) (unknown) BACK: Nontender (units (unknown) date) without deformity unknown) or crepitance. No flank tenderness. (unknown) (no (unknown) (unknown) BUN 11 (7-17) (units ( unknown) date) mg/dL unknown) (unknown) (no (unknown) (unknown) BUN/Creatinine (units (unknown) date) Ratio 17.7 (6-22) unknown) (unknown) (no (unknown) (unknown) Baso # (Auto) 0 (units (unknown) date) (0-100) /uL unknown) (unknown) (no (unknown) (unknown) Baso % (Auto) 1.0 (units (unknown) date) (0-2) % unknown) (unknown) (no (unknown) (unknown) Blood Pressure (units (unknown) date) 101/59 L 06/12/22 unknown) 05:42 (unknown) (no (unknown) (unknown) Blood Pressure (units (unknown) date) 101/59 L unknown) (unknown) (no (unknown) (unknown) CARDIOVASCULAR: (units (unknown) date) Denies chest pain, unknown) palpitations, orthopnea, edema, (unknown) (no (unknown) (unknown) CARDIOVASCULAR: (units (unknown) date) Regular rate and unknown) rhythm without murmurs, gallops, or rubs. (unknown) (no (unknown) (unknown) Calcium 8.2 L (units ( unknown) date) (8.4-10.2) mg/dL unknown) (unknown) (no (unknown) (unknown) Carbon Dioxide 23 (units (unknown) date) (22-32) mmol/L unknown) (unknown) (no (unknown) (unknown) Chief Complaint: (units (unknown) date) Nausea/Vomiting/[place]inette unknown) rrhea (unknown) (no (unknown) (unknown) Chloride 99 (units (un known) date) (98-107) mmol/L unknown) (unknown) (no (unknown) (unknown) Complete Blood (units (unknown) date) Count AUTO DIFF unknown) Stat (unknown) (no (unknown) (unknown) Comprehensive (units ( unknown) date) Metabolic Panel unknown) Stat (unknown) (no (unknown) (unknown) Course (units (unkno wn) date) unknown) (unknown) (no (unknown) (unknown) Covid-19 + FLU A/B (units (unknown) date) + RSV - PCR Stat unknown) (unknown) (no (unknown) (unknown) Creatinine 0.62 (units (unknown) date) (0.52-1.04) mg/dL unknown) (unknown) (no (unknown) (unknown) : 1990 (units (unknown) date) Acct:[id number] unknown) (unknown) (no (unknown) (unknown) Date of Service: (units (unknown) date) 06/12/22 unknown) (unknown) (no (unknown) (unknown) Departure (units (unkn own) date) unknown) (unknown) (no (unknown) (unknown) Discharge Plan (units (unknown) date) unknown) (unknown) (no (unknown) (unknown) Discontinued (units (u nknown) date) Medications unknown) (unknown) (no (unknown) (unknown) Documented By: BS (units (unknown) date) unknown) (unknown) (no (unknown) (unknown) ED Orders (units (unkn own) date) unknown) (unknown) (no (unknown) (unknown) ENT: Nose without (units (unknown) date) bleeding, purulent unknown) drainage. Throat without erythema, (unknown) (no (unknown) (unknown) ER Physician: (units ( unknown) date) Will Benitez D.O. unknown) (unknown) (no (unknown) (unknown) EXTREMITIES: No (units (unknown) date) edema or joint unknown) tenderness. (unknown) (no (unknown) (unknown) EYES: Pupils equal (units (unknown) date) round and reactive. unknown) Extraocular motions intact. No scleral (unknown) (no (unknown) (unknown) Emergency Report (units (unknown) date) unknown) (unknown) (no (unknown) (unknown) Eos # (Auto) 0 (units (unknown) date) (0-450) /uL unknown) (unknown) (no (unknown) (unknown) Eos % (Auto) 0.2 L (units (unknown) date) (2-4) % unknown) (unknown) (no (unknown) (unknown) Estimated GFR > 60 (units (unknown) date) (>60) mL/min unknown) (unknown) (no (unknown) (unknown) Exam Narrative: (units (unknown) date) unknown) (unknown) (no (unknown) (unknown) Exam (units (unkno wn) date) unknown) (unknown) (no (unknown) (unknown) Family History (units (unknown) date) (Reviewed 06/12/22 unknown) @ 06:13 by Reinaldo Arthur DO) (unknown) (no (unknown) (unknown) Family/Other (units (u nknown) date) Alcoholism unknown) (unknown) (no (unknown) (unknown) Family/Other (units (u nknown) date) Diabetes mellitus unknown) (unknown) (no (unknown) (unknown) Father Alcoholism (units (unknown) date) unknown) (unknown) (no (unknown) (unknown) Tonia Schneider MD (units (unknown) date) [Primary Care unknown) Provider] (unknown) (no (unknown) (unknown) GASTROINTESTINAL: (units (unknown) date) Abdomen soft, unknown) tender in lower abdomen present, nondistended. (unknown) (no (unknown) (unknown) GASTROINTESTINAL: (units (unknown) date) See HPI unknown) (unknown) (no (unknown) (unknown) GENERAL: See HPI (units (unknown) date) unknown) (unknown) (no (unknown) (unknown) GENERAL: [31] year (units (unknown) date) old patient appears unknown) stated age. Well-developed patient, in (unknown) (no (unknown) (unknown) : Denies (units (unk nown) date) dysuria, frequency, unknown) incontinence, hematuria, urinary retention. (unknown) (no (unknown) (unknown) General (units (unkno wn) date) unknown) (unknown) (no (unknown) (unknown) Globulin 2.7 (units (u nknown) date) (1.7-4.1) g/dL unknown) (unknown) (no (unknown) (unknown) Glucose 122 H (units ( unknown) date) (70-100) mg/dL unknown) (unknown) (no (unknown) (unknown) Grandfather (units (un known) date) Smoker unknown) (unknown) (no (unknown) (unknown) Grandfather (units (un known) date) Unknown unknown) whether patient has any health problems (unknown) (no (unknown) (unknown) Grandmother (units (un known) date) Diabetes unknown) mellitus (unknown) (no (unknown) (unknown) Grandmother (units (un known) date) Hypoglycemia unknown) (unknown) (no (unknown) (unknown) H/O dilation and (units (unknown) date) curettage unknown) (-12/14/16) (unknown) (no (unknown) (unknown) H/O wisdom tooth (units (unknown) date) extraction () unknown) (unknown) (no (unknown) (unknown) HEAD: Atraumatic. (units (unknown) date) Normocephalic. unknown) (unknown) (no (unknown) (unknown) HEENT: Denies (units ( unknown) date) sinus pain, ear unknown) pain, sore throat, difficulty swallowing, (unknown) (no (unknown) (unknown) HPI - Abdominal (units (unknown) date) Pain unknown) (unknown) (no (unknown) (unknown) HPI narrative: (units (unknown) date) unknown) (unknown) (no (unknown) (unknown) Hct 32.2 L (36-46) (units (unknown) date) % unknown) (unknown) (no (unknown) (unknown) Hgb 10.6 L (units (unk nown) date) (12.0-16.0) g/dL unknown) (unknown) (no (unknown) (unknown) History of Present (units (unknown) date) Illness unknown) (unknown) (no (unknown) (unknown) Home Medications (units (unknown) date) unknown) (unknown) (no (unknown) (unknown) Hydromorphone HCl (units (unknown) date) (Hydromorphone 0.5 unknown) Mg Inj) 0.5 mg IV NOW ONE (unknown) (no (unknown) (unknown) Hydromorphone HCl (units (unknown) date) (Hydromorphone 1 Mg unknown) Inj) 1 mg IM NOW ONE (unknown) (no (unknown) (unknown) Initial Vital (units ( unknown) date) Signs unknown) (unknown) (no (unknown) (unknown) Initial Vital (units ( unknown) date) Signs: unknown) (unknown) (no (unknown) (unknown) Insomnia (units (unkno wn) date) unknown) (unknown) (no (unknown) (unknown) [facility] (units (unknown) date) [address] unknown) [place] [address] (unknown) (no (unknown) (unknown) Lab Data (units (unkno wn) date) unknown) (unknown) (no (unknown) (unknown) Lab Results (units (un known) date) unknown) (unknown) (no (unknown) (unknown) Labs: (units (unkno wn) date) unknown) (unknown) (no (unknown) (unknown) Lactate (Lactic (units (unknown) date) Acid) Stat unknown) (unknown) (no (unknown) (unknown) Lactate 2.7 H (units ( unknown) date) (0.7-2.1) mmol/L unknown) (unknown) (no (unknown) (unknown) Last Admin: (units (un known) date) 06/12/22 06:52 unknown) Dose: 4 mg (unknown) (no (unknown) (unknown) Last Admin: (units (un known) date) 06/12/22 06:54 unknown) Dose: 1 mg (unknown) (no (unknown) (unknown) Lipase 134 (units (unk nown) date) (23-300) U/L unknown) (unknown) (no (unknown) (unknown) Lipase Stat (units (un known) date) unknown) (unknown) (no (unknown) (unknown) Lymph # (Auto) (units (unknown) date) 1000 L (0654-5463) unknown) /uL (unknown) (no (unknown) (unknown) Lymph % (Auto) (units (unknown) date) 25.3 (25-40) % unknown) (unknown) (no (unknown) (unknown) MCH 25.9 L (26-34) (units (unknown) date) PG unknown) (unknown) (no (unknown) (unknown) MCHC 33.0 (30-36) (units (unknown) date) % unknown) (unknown) (no (unknown) (unknown) MCV 78.4 L (units (unk nown) date) (80-100) fL unknown) (unknown) (no (unknown) (unknown) MDM - Abdominal (units (unknown) date) Pain unknown) (unknown) (no (unknown) (unknown) MUSCULOSKELETAL: (units (unknown) date) denies weakness, unknown) joint pain, or bony pain (unknown) (no (unknown) (unknown) Medical History (units (unknown) date) (Reviewed 06/12/22 unknown) @ 06:13 by Reinaldo Arthur DO) (unknown) (no (unknown) (unknown) Medication (units (unk nown) date) Instructions unknown) Recorded Confirmed (unknown) (no (unknown) (unknown) Medication (units (unk nown) date) Instructions unknown) Recorded (unknown) (no (unknown) (unknown) Menometrorrhagia (units (unknown) date) unknown) (unknown) (no (unknown) (unknown) [place] # (Auto) 200 (units (unknown) date) (0-900) /uL unknown) (unknown) (no (unknown) (unknown) [place] % (Auto) 4.8 (units (unknown) date) (3-14) % unknown) (unknown) (no (unknown) (unknown) Mother Diabetes (units (unknown) date) mellitus unknown) (unknown) (no (unknown) (unknown) NECK: Trachea (units ( unknown) date) midline. Non tender unknown) (unknown) (no (unknown) (unknown) NEURO: AOx3. (units (u nknown) date) unknown) (unknown) (no (unknown) (unknown) NEUROLOGIC: Denies (units (unknown) date) weakness, headache, unknown) numbness, change in speech, confusion, (unknown) (no (unknown) (unknown) Narrative (units (unkn own) date) unknown) (unknown) (no (unknown) (unknown) Narrative: (units (unk nown) date) unknown) (unknown) (no (unknown) (unknown) Neut # (Auto) 2800 (units (unknown) date) (2506-3767) /uL unknown) (unknown) (no (unknown) (unknown) Neut % (Auto) 68.7 (units (unknown) date) (50-75) % unknown) (unknown) (no (unknown) (unknown) No Action (units (unkn own) date) unknown) (unknown) (no (unknown) (unknown) Obesity (units (unkno wn) date) unknown) (unknown) (no (unknown) (unknown) Ondansetron HCl (units (unknown) date) (Ondansetron 4 Mg unknown) Odt) 4 mg SL NOW PRN (unknown) (no (unknown) (unknown) Ondansetron HCl (units (unknown) date) (Ondansetron 4 Mg/2 unknown) Ml Inj) 4 mg IV NOW ONE (unknown) (no (unknown) (unknown) Ondansetron HCl (units (unknown) date) (Ondansetron 4 Mg/2 unknown) Ml Inj) 4 mg IV NOW PRN (unknown) (no (unknown) (unknown) Ordered: (units (unkno wn) date) unknown) (unknown) (no (unknown) (unknown) Orders (units (unkno wn) date) unknown) (unknown) (no (unknown) (unknown) Overweight (units (unk nown) date) unknown) (unknown) (no (unknown) (unknown) Oxygen Delivery (units (unknown) date) Method 06/12/22 unknown) 05:42 (unknown) (no (unknown) (unknown) Oxygen Delivery (units (unknown) date) Method Room Air unknown) (unknown) (no (unknown) (unknown) PRN Reason: Nausea (units (unknown) date) And Vomiting unknown) (unknown) (no (unknown) (unknown) PSYCHIATRIC: No (units (unknown) date) concerning unknown) psychosocial issues. (unknown) (no (unknown) (unknown) Pantoprazole (units (u nknown) date) Sodium unknown) (Pantoprazole 40 Mg Vial) 40 mg IV NOW ONE (unknown) (no (unknown) (unknown) Patient History (units (unknown) date) unknown) (unknown) (no (unknown) (unknown) Patient: (units (unkno wn) date) Sarah Soto R unknown) MR#: M (unknown) (no (unknown) (unknown) Plt Count 63 L (units (unknown) date) (150-400) X103/uL unknown) (unknown) (no (unknown) (unknown) Potassium 3.7 (units ( unknown) date) (3.4-5.1) mmol/L unknown) (unknown) (no (unknown) (unknown) Prescriptions: (units (unknown) date) unknown) (unknown) (no (unknown) (unknown) Previous Rx's (units ( unknown) date) unknown) (unknown) (no (unknown) (unknown) Pulse Oximetry 100 (units (unknown) date) 06/12/22 05:42 unknown) (unknown) (no (unknown) (unknown) Pulse Oximetry 100 (units (unknown) date) unknown) (unknown) (no (unknown) (unknown) Pulse Rate 103 H (units (unknown) date) 06/12/22 05:42 unknown) (unknown) (no (unknown) (unknown) Pulse Rate 103 H (units (unknown) date) unknown) (unknown) (no (unknown) (unknown) RBC 4.11 (4.0-5.2) (units (unknown) date) X106/uL unknown) (unknown) (no (unknown) (unknown) RDW 16.1 H (units (unk nown) date) (11.6-14.8) % unknown) (unknown) (no (unknown) (unknown) RESPIRATORY: Clear (units (unknown) date) to auscultation. unknown) Breath sounds equal bilaterally. No wheezes, (unknown) (no (unknown) (unknown) RESPIRATORY: (units (u nknown) date) Denies dyspnea, unknown) cough, wheezing, hemoptysis, sputum. (unknown) (no (unknown) (unknown) Referrals: (units (unk nown) date) unknown) (unknown) (no (unknown) (unknown) Related Data (units (u nknown) date) unknown) (unknown) (no (unknown) (unknown) Respiratory Rate (units (unknown) date) 22 06/12/22 05:42 unknown) (unknown) (no (unknown) (unknown) Respiratory Rate (units (unknown) date) 22 unknown) (unknown) (no (unknown) (unknown) Review of Systems (units (unknown) date) unknown) (unknown) (no (unknown) (unknown) S/P myringotomy (units (unknown) date) with insertion of unknown) tube (unknown) (no (unknown) (unknown) SKIN: Denies rash, (units (unknown) date) skin lesions, or unknown) other (unknown) (no (unknown) (unknown) SKIN: No rash or (units (unknown) date) erythema of visible unknown) areas (unknown) (no (unknown) (unknown) (spontaneous (units (unknown) date) vaginal delivery) unknown) (-09/05/18) (unknown) (no (unknown) (unknown) Signed By: (units (unk nown) date) unknown) (unknown) (no (unknown) (unknown) Smoker (units (unkno wn) date) unknown) (unknown) (no (unknown) (unknown) Smoking Status: (units (unknown) date) Former smoker unknown) (unknown) (no (unknown) (unknown) Social History (units (unknown) date) (Reviewed 06/12/22 unknown) @ 06:13 by Reinaldo Arthur DO) (unknown) (no (unknown) (unknown) Sodium 137 (units (unk nown) date) (137-145) mmol/L unknown) (unknown) (no (unknown) (unknown) Stated Complaint: (units (unknown) date) abd pain, n/v unknown) (unknown) (no (unknown) (unknown) Stop: 06/12/22 (units (unknown) date) 06:06 unknown) (unknown) (no (unknown) (unknown) Stop: 06/12/22 (units (unknown) date) 06:48 unknown) (unknown) (no (unknown) (unknown) Substance Use (units ( unknown) date) Type: does not use unknown) (unknown) (no (unknown) (unknown) Surgical History (units (unknown) date) (Reviewed 06/12/22 unknown) @ 06:13 by Reinaldo Arthur DO) (unknown) (no (unknown) (unknown) Temperature 97.7 F (units (unknown) date) 06/12/22 05:42 unknown) (unknown) (no (unknown) (unknown) Temperature 97.7 F (units (unknown) date) unknown) (unknown) (no (unknown) (unknown) Time Seen by (units (u nknown) date) Provider: 06/12/22 unknown) 05:42 (unknown) (no (unknown) (unknown) Total Bilirubin (units (unknown) date) 0.6 (0.2-1.3) mg/dL unknown) (unknown) (no (unknown) (unknown) Total Protein 7.0 (units (unknown) date) (6.3-8.2) g/dL unknown) (unknown) (no (unknown) (unknown) Vital Signs - 8 hr (units (unknown) date) unknown) (unknown) (no (unknown) (unknown) Vital Signs (units (un known) date) unknown) (unknown) (no (unknown) (unknown) Vital signs: (units (u nknown) date) unknown) (unknown) (no (unknown) (unknown) WBC 4.0 L (units (unkn own) date) (4.5-11.0) X103/uL unknown) (unknown) (no (unknown) (unknown) [Embedded Image (units (unknown) date) Not Available] unknown) (unknown) (no (unknown) (unknown) [METOCLOPRAMIDE] (units (unknown) date) unknown) (unknown) (no (unknown) (unknown) abdominal and (units ( unknown) date) pelvic pain along unknown) with persistent nausea and vomiting. She states (unknown) (no (unknown) (unknown) acetaminophen 325 (units (unknown) date) mg tablet 325 mg PO unknown) Q6H PRN pain #20 tabs 02/05/20 (unknown) (no (unknown) (unknown) acetaminophen (units ( unknown) date) [Tylenol] 325 mg unknown) tablet (unknown) (no (unknown) (unknown) alcohol intake (units (unknown) date) frequency: 3 or unknown) more drinks per day (unknown) (no (unknown) (unknown) alcohol intake: (units (unknown) date) former unknown) (unknown) (no (unknown) (unknown) current (units (unkno wn) date) occupational unknown) exposures/hazards: Yes (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 with Pandemic ) (unknown) (no (unknown) (unknown) diphenhydramine (units (unknown) date) HCl 25 mg capsule unknown) 25 mg PO BEDTIME PRN insomnia #20 02/05/20 (unknown) (no (unknown) (unknown) diphenhydramine (units (unknown) date) HCl [Benadryl] 25 unknown) mg capsule (unknown) (no (unknown) (unknown) dizziness. (units (unk nown) date) unknown) (unknown) (no (unknown) (unknown) docusate sodium (units (unknown) date) 100 mg capsule 100 unknown) mg PO BID #30 caps 02/05/20 (unknown) (no (unknown) (unknown) docusate sodium (units (unknown) date) [Colace] 100 mg unknown) capsule (unknown) (no (unknown) (unknown) dysuria, frequency (units (unknown) date) or urgency. She unknown) denies any vaginal discharge. She states (unknown) (no (unknown) (unknown) education level: (units (unknown) date) college unknown) (unknown) (no (unknown) (unknown) renee/synagogue: (units (unknown) date) [employer] unknown) (unknown) (no (unknown) (unknown) household members: (units (unknown) date) spouse and children unknown) (unknown) (no (unknown) (unknown) hydrocodone (units (un known) date) [HYDROCODONE] unknown) AdvReac Unknown VOMITING Verified 03/10/20 08:13 (unknown) (no (unknown) (unknown) ibuprofen 600 mg (units (unknown) date) Tablet unknown) (unknown) (no (unknown) (unknown) ibuprofen 600 mg (units (unknown) date) tablet 600 mg PO unknown) Q6HR PRN Pain, Mild 07/04/20 (unknown) (no (unknown) (unknown) icterus. No (units (un known) date) injection or unknown) drainage. (unknown) (no (unknown) (unknown) ill persons. She (units (unknown) date) is currently having unknown) her menstrual period. She denies any (unknown) (no (unknown) (unknown) improves with (units ( unknown) date) rest. She denies unknown) any radiation of her pain. (unknown) (no (unknown) (unknown) marital status: (units (unknown) date) unknown) (unknown) (no (unknown) (unknown) metoclopramide (units (unknown) date) Allergy Mild unknown) RASH/HIVES Verified 03/10/20 08:13 (unknown) (no (unknown) (unknown) number of (units (unkn own) date) children: 1 unknown) (unknown) (no (unknown) (unknown) obvious distress. (units (unknown) date) unknown) (unknown) (no (unknown) (unknown) occupational (units (u nknown) date) status: employed unknown) (unknown) (no (unknown) (unknown) ondansetron 4 mg (units (unknown) date) disintegrating 4 mg unknown) PO Q8H PRN nausea and 01/01/20 (unknown) (no (unknown) (unknown) ondansetron 4 mg (units (unknown) date) disintegrating 4 mg unknown) PO Q8H PRN nausea and 02/05/20 (unknown) (no (unknown) (unknown) ondansetron 4 mg (units (unknown) date) tablet,disintegrati unknown) ng (unknown) (no (unknown) (unknown) prenat.vits,otis,mi (units (unknown) date) [id number]-ngjuo 1 tab unknown) PO DAILY 12/30/19 07/03/20 (unknown) (no (unknown) (unknown) prenat.vits,otis,mi (units (unknown) date) [id number]-fihzf Tablet unknown) (unknown) (no (unknown) (unknown) rales, or rhonchi. (units (unknown) date) unknown) (unknown) (no (unknown) (unknown) second hand (units (un known) date) exposure: No unknown) (growing up as a child - not currently) (unknown) (no (unknown) (unknown) seizures, (units (unkn own) date) incoordination. unknown) (unknown) (no (unknown) (unknown) somewhat (units (unkno wn) date) reminiscent of when unknown) she had morning sickness with a . She (unknown) (no (unknown) (unknown) special renee (units ( unknown) date) needs: No unknown) (unknown) (no (unknown) (unknown) states her pain is (units (unknown) date) rather persistent unknown) and seems to be worse with motion and (unknown) (no (unknown) (unknown) substance use (units ( unknown) date) type: does not use unknown) (unknown) (no (unknown) (unknown) tablet vomiting (units (unknown) date) #20 tabs unknown) (unknown) (no (unknown) (unknown) tablet vomiting (units (unknown) date) #30 tabs unknown) (unknown) (no (unknown) (unknown) that she is become (units (unknown) date) dizzy, weak and unknown) lightheaded. She states that this is (unknown) (no (unknown) (unknown) that she is had no (units (unknown) date) change in diet or unknown) medications and denies exposure to other (unknown) (no (unknown) (unknown) tonsillar (units (unkn own) date) hypertrophy or unknown) exudate. Airway patent. (unknown) (no (unknown) (unknown) vomiting, ovarian (units (unknown) date) cysts, alcohol unknown) abuse presents with 2 days of severe lower Result panel 100 (unknown) (no date) (unknown) (unknown) Negative (units (unkn own) unknown) Result panel 101 (unknown) (no (unknown) (unknown) (no value) (units (unk nown) date) unknown) (unknown) (no (unknown) (unknown) <Electronically (units (unknown) date) signed by Will Benitez D.O.> (unknown) (no (unknown) (unknown) <Reinaldo Arthur DO (units (unknown) date) - Last Filed: unknown) 06/12/22 06:16> (unknown) (no (unknown) (unknown) <Will Benitez, (units (unknown) date) DO - Last Filed: unknown) 06/12/22 08:53> (unknown) (no (unknown) (unknown) (1-3) #30 tabs (units (unknown) date) unknown) (unknown) (no (unknown) (unknown) (Benadryl) caps (units (unknown) date) unknown) (unknown) (no (unknown) (unknown) (Colace) (units (unkno wn) date) unknown) (unknown) (no (unknown) (unknown) (Tylenol) (units (unkn own) date) unknown) (unknown) (no (unknown) (unknown) [id number] (units (unkn own) date) unknown) (unknown) (no (unknown) (unknown) 06/12/22 06/12/22 (units (unknown) date) 06/12/22 unknown) Range/Units (unknown) (no (unknown) (unknown) 06/12/22 06:47 (units (unknown) date) unknown) (unknown) (no (unknown) (unknown) 06/12/22 0854 (units ( unknown) date) unknown) (unknown) (no (unknown) (unknown) 06/12/22 08:00 (units (unknown) date) unknown) (unknown) (no (unknown) (unknown) 06/12/22 08:19 (units (unknown) date) unknown) (unknown) (no (unknown) (unknown) 06/12/22 (units (unkno wn) date) Range/Units unknown) (unknown) (no (unknown) (unknown) 06/12/22 (units (unkno wn) date) unknown) (unknown) (no (unknown) (unknown) 05:42 (units (unkno wn) date) unknown) (unknown) (no (unknown) (unknown) 06:47 06:47 06:47 (units (unknown) date) unknown) (unknown) (no (unknown) (unknown) 08:00 (units (unkno wn) date) unknown) (unknown) (no (unknown) (unknown) 1 tab PO DAILY (units (unknown) date) unknown) (unknown) (no (unknown) (unknown) 100 mg PO BID Qty: (units (unknown) date) 30 0RF unknown) (unknown) (no (unknown) (unknown) 12 point review of (units (unknown) date) systems is negative unknown) except for those stated above (unknown) (no (unknown) (unknown) 25 mg PO BEDTIME (units (unknown) date) PRN (Reason: unknown) insomnia) Qty: 20 0RF (unknown) (no (unknown) (unknown) 325 mg PO Q6H PRN (units (unknown) date) (Reason: pain) Qty: unknown) 20 0RF (unknown) (no (unknown) (unknown) 31-year-old female (units (unknown) date) former smoker with unknown) history of abdominal pain, nausea and (unknown) (no (unknown) (unknown) 4 mg PO Q6H PRN (units (unknown) date) (Reason: nausea and unknown) vomiting) Qty: 14 0RF (unknown) (no (unknown) (unknown) 4 mg PO Q8H PRN (units (unknown) date) (Reason: nausea and unknown) vomiting) Qty: 20 0RF (unknown) (no (unknown) (unknown) 4 mg PO Q8H PRN (units (unknown) date) (Reason: nausea and unknown) vomiting) Qty: 30 0RF (unknown) (no (unknown) (unknown) 50 mg PO Q6H PRN (units (unknown) date) (Reason: pain) Qty: unknown) 10 0RF (unknown) (no (unknown) (unknown) 600 mg PO Q6HR PRN (units (unknown) date) (Reason: Pain, Mild unknown) (1-3)) Qty: 30 0RF (unknown) (no (unknown) (unknown) ALT (<35) IU/L (units (unknown) date) unknown) (unknown) (no (unknown) (unknown) ALT 15 (<35) IU/L (units (unknown) date) unknown) (unknown) (no (unknown) (unknown) AST (14-36) IU/L (units (unknown) date) unknown) (unknown) (no (unknown) (unknown) AST 45 H (14-36) (units (unknown) date) IU/L unknown) (unknown) (no (unknown) (unknown) Abdominal pain, (units (unknown) date) Nausea and vomiting unknown) (unknown) (no (unknown) (unknown) Activity (units (unkno wn) date) Restrictions/Additi unknown) onal Instructions: (unknown) (no (unknown) (unknown) Age/Sex: 31 / F (units (unknown) date) unknown) (unknown) (no (unknown) (unknown) Albumin (3.5-5.0) (units (unknown) date) g/dL unknown) (unknown) (no (unknown) (unknown) Albumin 4.3 (units (un known) date) (3.5-5.0) g/dL unknown) (unknown) (no (unknown) (unknown) Albumin/Globulin (units (unknown) date) Ratio (1.0-2.8) unknown) (unknown) (no (unknown) (unknown) Albumin/Globulin (units (unknown) date) Ratio 1.6 (1.0-2.8) unknown) (unknown) (no (unknown) (unknown) Alcoholism (units (unk nown) date) unknown) (unknown) (no (unknown) (unknown) Alkaline (units (unkno wn) date) Phosphatase unknown) (38-126) U/L (unknown) (no (unknown) (unknown) Alkaline (units (unkno wn) date) Phosphatase 74 unknown) (38-126) U/L (unknown) (no (unknown) (unknown) Allergies (units (unkn own) date) unknown) (unknown) (no (unknown) (unknown) Allergy/AdvReac (units (unknown) date) Type Severity unknown) Reaction Status Date / Time (unknown) (no (unknown) (unknown) Anemia (-2018) (units (unknown) date) unknown) (unknown) (no (unknown) (unknown) BACK: Nontender (units (unknown) date) without deformity unknown) or crepitance. No flank tenderness. (unknown) (no (unknown) (unknown) BUN (7-17) mg/dL (units (unknown) date) unknown) (unknown) (no (unknown) (unknown) BUN 11 (7-17) (units ( unknown) date) mg/dL unknown) (unknown) (no (unknown) (unknown) BUN/Creatinine (units (unknown) date) Ratio (6-22) unknown) (unknown) (no (unknown) (unknown) BUN/Creatinine (units (unknown) date) Ratio 17.7 (6-22) unknown) (unknown) (no (unknown) (unknown) Baso # (Auto) (units ( unknown) date) (0-100) /uL unknown) (unknown) (no (unknown) (unknown) Baso # (Auto) 0 (units (unknown) date) (0-100) /uL unknown) (unknown) (no (unknown) (unknown) Baso % (Auto) (units ( unknown) date) (0-2) % unknown) (unknown) (no (unknown) (unknown) Baso % (Auto) 1.0 (units (unknown) date) (0-2) % unknown) (unknown) (no (unknown) (unknown) Blood Pressure (units (unknown) date) 101/59 L 06/12/22 unknown) 05:42 (unknown) (no (unknown) (unknown) Blood Pressure (units (unknown) date) 101/59 L unknown) (unknown) (no (unknown) (unknown) CARDIOVASCULAR: (units (unknown) date) Denies chest pain, unknown) palpitations, orthopnea, edema, (unknown) (no (unknown) (unknown) CARDIOVASCULAR: (units (unknown) date) Regular rate and unknown) rhythm without murmurs, gallops, or rubs. (unknown) (no (unknown) (unknown) Calcium (8.4-10.2) (units (unknown) date) mg/dL unknown) (unknown) (no (unknown) (unknown) Calcium 8.2 L (units ( unknown) date) (8.4-10.2) mg/dL unknown) (unknown) (no (unknown) (unknown) Carbon Dioxide (units (unknown) date) (22-32) mmol/L unknown) (unknown) (no (unknown) (unknown) Carbon Dioxide 23 (units (unknown) date) (22-32) mmol/L unknown) (unknown) (no (unknown) (unknown) Chief Complaint: (units (unknown) date) Nausea/Vomiting/[place]toinette unknown) rrhea (unknown) (no (unknown) (unknown) Chloride (98-107) (units (unknown) date) mmol/L unknown) (unknown) (no (unknown) (unknown) Chloride 99 (units (un known) date) (98-107) mmol/L unknown) (unknown) (no (unknown) (unknown) Clinical (units (unkno wn) date) Impression: unknown) (unknown) (no (unknown) (unknown) Complete Blood (units (unknown) date) Count AUTO DIFF unknown) Stat (unknown) (no (unknown) (unknown) Comprehensive (units ( unknown) date) Metabolic Panel unknown) Stat (unknown) (no (unknown) (unknown) Course (units (unkno wn) date) unknown) (unknown) (no (unknown) (unknown) Covid-19 + FLU A/B (units (unknown) date) + RSV - PCR Stat unknown) (unknown) (no (unknown) (unknown) Creatinine (units (unk nown) date) (0.52-1.04) mg/dL unknown) (unknown) (no (unknown) (unknown) Creatinine 0.62 (units (unknown) date) (0.52-1.04) mg/dL unknown) (unknown) (no (unknown) (unknown) : 1990 (units (unknown) date) Acct:[id number] unknown) (unknown) (no (unknown) (unknown) Date of Service: (units (unknown) date) 06/12/22 unknown) (unknown) (no (unknown) (unknown) Departure (units (unkn own) date) unknown) (unknown) (no (unknown) (unknown) Discharge Plan (units (unknown) date) unknown) (unknown) (no (unknown) (unknown) Discontinued (units (u nknown) date) Medications unknown) (unknown) (no (unknown) (unknown) Documented By: BS (units (unknown) date) unknown) (unknown) (no (unknown) (unknown) Documented By: MLM (units (unknown) date) unknown) (unknown) (no (unknown) (unknown) Dr benitez: (units (unk nown) date) Received turned unknown) over. Reviewed patient's history and physical exam. (unknown) (no (unknown) (unknown) ED Orders (units (unkn own) date) unknown) (unknown) (no (unknown) (unknown) ENT: Nose without (units (unknown) date) bleeding, purulent unknown) drainage. Throat without erythema, (unknown) (no (unknown) (unknown) ER Physician: (units ( unknown) date) Will Benitez D.O. unknown) (unknown) (no (unknown) (unknown) EXTREMITIES: No (units (unknown) date) edema or joint unknown) tenderness. (unknown) (no (unknown) (unknown) EYES: Pupils equal (units (unknown) date) round and reactive. unknown) Extraocular motions intact. No scleral (unknown) (no (unknown) (unknown) Emergency Report (units (unknown) date) unknown) (unknown) (no (unknown) (unknown) Eos # (Auto) (units (u nknown) date) (0-450) /uL unknown) (unknown) (no (unknown) (unknown) Eos # (Auto) 0 (units (unknown) date) (0-450) /uL unknown) (unknown) (no (unknown) (unknown) Eos % (Auto) (2-4) (units (unknown) date) % unknown) (unknown) (no (unknown) (unknown) Eos % (Auto) 0.2 L (units (unknown) date) (2-4) % unknown) (unknown) (no (unknown) (unknown) Estimated GFR > 60 (units (unknown) date) (>60) mL/min unknown) (unknown) (no (unknown) (unknown) Estimated GFR (units ( unknown) date) (>60) mL/min unknown) (unknown) (no (unknown) (unknown) Exam Narrative: (units (unknown) date) unknown) (unknown) (no (unknown) (unknown) Exam (units (unkno wn) date) unknown) (unknown) (no (unknown) (unknown) Family History (units (unknown) date) (Reviewed 06/12/22 unknown) @ 06:13 by Reinaldo Arthur DO) (unknown) (no (unknown) (unknown) Family/Other (units (u nknown) date) Alcoholism unknown) (unknown) (no (unknown) (unknown) Family/Other (units (u nknown) date) Diabetes mellitus unknown) (unknown) (no (unknown) (unknown) Father Alcoholism (units (unknown) date) unknown) (unknown) (no (unknown) (unknown) Tonia Schneider MD (units (unknown) date) [Primary Care unknown) Provider] (unknown) (no (unknown) (unknown) GASTROINTESTINAL: (units (unknown) date) Abdomen soft, unknown) tender in lower abdomen present, nondistended. (unknown) (no (unknown) (unknown) GASTROINTESTINAL: (units (unknown) date) See HPI unknown) (unknown) (no (unknown) (unknown) GENERAL: See HPI (units (unknown) date) unknown) (unknown) (no (unknown) (unknown) GENERAL: [31] year (units (unknown) date) old patient appears unknown) stated age. Well-developed patient, in (unknown) (no (unknown) (unknown) : Denies (units (unk nown) date) dysuria, frequency, unknown) incontinence, hematuria, urinary retention. (unknown) (no (unknown) (unknown) General (units (unkno wn) date) unknown) (unknown) (no (unknown) (unknown) Globulin (1.7-4.1) (units (unknown) date) g/dL unknown) (unknown) (no (unknown) (unknown) Globulin 2.7 (units (u nknown) date) (1.7-4.1) g/dL unknown) (unknown) (no (unknown) (unknown) Glucose (70-100) (units (unknown) date) mg/dL unknown) (unknown) (no (unknown) (unknown) Glucose 122 H (units ( unknown) date) (70-100) mg/dL unknown) (unknown) (no (unknown) (unknown) Grandfather (units (un known) date) Smoker unknown) (unknown) (no (unknown) (unknown) Grandfather (units (un known) date) Unknown unknown) whether patient has any health problems (unknown) (no (unknown) (unknown) Grandmother (units (un known) date) Diabetes unknown) mellitus (unknown) (no (unknown) (unknown) Grandmother (units (un known) date) Hypoglycemia unknown) (unknown) (no (unknown) (unknown) H/O dilation and (units (unknown) date) curettage unknown) (-12/14/16) (unknown) (no (unknown) (unknown) H/O wisdom tooth (units (unknown) date) extraction () unknown) (unknown) (no (unknown) (unknown) HEAD: Atraumatic. (units (unknown) date) Normocephalic. unknown) (unknown) (no (unknown) (unknown) HEENT: Denies (units ( unknown) date) sinus pain, ear unknown) pain, sore throat, difficulty swallowing, (unknown) (no (unknown) (unknown) HPI - Abdominal (units (unknown) date) Pain unknown) (unknown) (no (unknown) (unknown) HPI narrative: (units (unknown) date) unknown) (unknown) (no (unknown) (unknown) Hct (36-46) % (units ( unknown) date) unknown) (unknown) (no (unknown) (unknown) Hct 32.2 L (36-46) (units (unknown) date) % unknown) (unknown) (no (unknown) (unknown) Hgb (12.0-16.0) (units (unknown) date) g/dL unknown) (unknown) (no (unknown) (unknown) Hgb 10.6 L (units (unk nown) date) (12.0-16.0) g/dL unknown) (unknown) (no (unknown) (unknown) History of Present (units (unknown) date) Illness unknown) (unknown) (no (unknown) (unknown) Home Medications (units (unknown) date) unknown) (unknown) (no (unknown) (unknown) Hydromorphone HCl (units (unknown) date) (Hydromorphone 0.5 unknown) Mg Inj) 0.5 mg IV NOW ONE (unknown) (no (unknown) (unknown) Hydromorphone HCl (units (unknown) date) (Hydromorphone 1 Mg unknown) Inj) 1 mg IM NOW ONE (unknown) (no (unknown) (unknown) I recommend that (units (unknown) date) you continue to unknown) take all of your medications as directed. (unknown) (no (unknown) (unknown) Initial Vital (units ( unknown) date) Signs unknown) (unknown) (no (unknown) (unknown) Initial Vital (units ( unknown) date) Signs: unknown) (unknown) (no (unknown) (unknown) Insomnia (units (unkno wn) date) unknown) (unknown) (no (unknown) (unknown) Instructions: DI (units (unknown) date) for Abdominal unknown) Pain-Adult (unknown) (no (unknown) (unknown) [facility] (units (unknown) date) [address] [place] [address] unknown) [place] [address] (unknown) (no (unknown) (unknown) Lab Data (units (unkno wn) date) unknown) (unknown) (no (unknown) (unknown) Lab Results (units (un known) date) unknown) (unknown) (no (unknown) (unknown) Labs: (units (unkno wn) date) unknown) (unknown) (no (unknown) (unknown) Lactate (0.7-2.1) (units (unknown) date) mmol/L unknown) (unknown) (no (unknown) (unknown) Lactate (Lactic (units (unknown) date) Acid) Stat unknown) (unknown) (no (unknown) (unknown) Lactate 2.7 H (units ( unknown) date) (0.7-2.1) mmol/L unknown) (unknown) (no (unknown) (unknown) Last Admin: (units (un known) date) 01/31/23 06:52 unknown) Dose: 4 mg (unknown) (no (unknown) (unknown) Last Admin: (units (un known) date) 06/12/22 06:54 unknown) Dose: 1 mg (unknown) (no (unknown) (unknown) Last Admin: (units (un known) date) 06/12/22 08:23 unknown) Dose: 4 mg (unknown) (no (unknown) (unknown) Last Admin: (units (un known) date) 06/12/22 08:23 unknown) Dose: 40 mg (unknown) (no (unknown) (unknown) Lipase (23-300) (units (unknown) date) U/L unknown) (unknown) (no (unknown) (unknown) Lipase 134 (units (unk nown) date) (23-300) U/L unknown) (unknown) (no (unknown) (unknown) Lipase Stat (units (un known) date) unknown) (unknown) (no (unknown) (unknown) Lymph # (Auto) (units (unknown) date) ([phone]) /uL unknown) (unknown) (no (unknown) (unknown) Lymph # (Auto) (units (unknown) date) 1000 L ([id number]) unknown) /uL (unknown) (no (unknown) (unknown) Lymph % (Auto) (units (unknown) date) (25-40) % unknown) (unknown) (no (unknown) (unknown) Lymph % (Auto) (units (unknown) date) 25.3 (25-40) % unknown) (unknown) (no (unknown) (unknown) MCH (26-34) PG (units (unknown) date) unknown) (unknown) (no (unknown) (unknown) MCH 25.9 L (26-34) (units (unknown) date) PG unknown) (unknown) (no (unknown) (unknown) MCHC (30-36) % (units (unknown) date) unknown) (unknown) (no (unknown) (unknown) MCHC 33.0 (30-36) (units (unknown) date) % unknown) (unknown) (no (unknown) (unknown) MCV (80-100) fL (units (unknown) date) unknown) (unknown) (no (unknown) (unknown) MCV 78.4 L (units (unk nown) date) (80-100) fL unknown) (unknown) (no (unknown) (unknown) MDM - Abdominal (units (unknown) date) Pain unknown) (unknown) (no (unknown) (unknown) MDM Narrative (units ( unknown) date) unknown) (unknown) (no (unknown) (unknown) MUSCULOSKELETAL: (units (unknown) date) denies weakness, unknown) joint pain, or bony pain (unknown) (no (unknown) (unknown) Medical History (units (unknown) date) (Reviewed 06/12/22 unknown) @ 06:13 by Reinaldo Arthur DO) (unknown) (no (unknown) (unknown) Medical decision (units (unknown) date) making narrative: unknown) (unknown) (no (unknown) (unknown) Medication (units (unk nown) date) Instructions unknown) Recorded Confirmed (unknown) (no (unknown) (unknown) Medication (units (unk nown) date) Instructions unknown) Recorded (unknown) (no (unknown) (unknown) Medications to try (units (unknown) date) to help your unknown) symptoms today were sent to the pharmacy of your (unknown) (no (unknown) (unknown) Menometrorrhagia (units (unknown) date) unknown) (unknown) (no (unknown) (unknown) [place] # (Auto) (units ( unknown) date) (0-900) /uL unknown) (unknown) (no (unknown) (unknown) Mcintosh # (Auto) 200 (units (unknown) date) (0-900) /uL unknown) (unknown) (no (unknown) (unknown) Mcintosh % (Auto) (units ( unknown) date) (3-14) % unknown) (unknown) (no (unknown) (unknown) Mcintosh % (Auto) 4.8 (units (unknown) date) (3-14) % unknown) (unknown) (no (unknown) (unknown) Mother Diabetes (units (unknown) date) mellitus unknown) (unknown) (no (unknown) (unknown) NECK: Trachea (units ( unknown) date) midline. Non tender unknown) (unknown) (no (unknown) (unknown) NEURO: AOx3. (units (u nknown) date) unknown) (unknown) (no (unknown) (unknown) NEUROLOGIC: Denies (units (unknown) date) weakness, headache, unknown) numbness, change in speech, confusion, (unknown) (no (unknown) (unknown) Narrative (units (unkn own) date) unknown) (unknown) (no (unknown) (unknown) Narrative: (units (unk nown) date) unknown) (unknown) (no (unknown) (unknown) Neut # (Auto) (units ( unknown) date) (7444-5313) /uL unknown) (unknown) (no (unknown) (unknown) Neut # (Auto) 2800 (units (unknown) date) (5218-0244) /uL unknown) (unknown) (no (unknown) (unknown) Neut % (Auto) (units ( unknown) date) (50-75) % unknown) (unknown) (no (unknown) (unknown) Neut % (Auto) 68.7 (units (unknown) date) (50-75) % unknown) (unknown) (no (unknown) (unknown) New (units (unkno wn) date) unknown) (unknown) (no (unknown) (unknown) No Action (units (unkn own) date) unknown) (unknown) (no (unknown) (unknown) No indication for (units (unknown) date) antibiotics. She unknown) expressed understanding and agreement. (unknown) (no (unknown) (unknown) Obesity (units (unkno wn) date) unknown) (unknown) (no (unknown) (unknown) Ondansetron HCl (units (unknown) date) (Ondansetron 4 Mg unknown) Odt) 4 mg SL NOW PRN (unknown) (no (unknown) (unknown) Ondansetron HCl (units (unknown) date) (Ondansetron 4 Mg/2 unknown) Ml Inj) 4 mg IV NOW ONE (unknown) (no (unknown) (unknown) Ondansetron HCl (units (unknown) date) (Ondansetron 4 Mg/2 unknown) Ml Inj) 4 mg IV NOW PRN (unknown) (no (unknown) (unknown) Ordered: (units (unkno wn) date) unknown) (unknown) (no (unknown) (unknown) Orders (units (unkno wn) date) unknown) (unknown) (no (unknown) (unknown) Overweight (units (unk nown) date) unknown) (unknown) (no (unknown) (unknown) Oxygen Delivery (units (unknown) date) Method 06/12/22 unknown) 05:42 (unknown) (no (unknown) (unknown) Oxygen Delivery (units (unknown) date) Method Room Air unknown) (unknown) (no (unknown) (unknown) PRN Reason: Nausea (units (unknown) date) And Vomiting unknown) (unknown) (no (unknown) (unknown) PSYCHIATRIC: No (units (unknown) date) concerning unknown) psychosocial issues. (unknown) (no (unknown) (unknown) Pantoprazole (units (u nknown) date) Sodium unknown) (Pantoprazole 40 Mg Vial) 40 mg IV NOW ONE (unknown) (no (unknown) (unknown) Patient (units (unkno wn) date) Disposition: Home unknown) (unknown) (no (unknown) (unknown) Patient History (units (unknown) date) unknown) (unknown) (no (unknown) (unknown) Patient: (units (unkno wn) date) Sarah Soto unknown) MR#: M (unknown) (no (unknown) (unknown) Performed my own (units (unknown) date) independent unknown) evaluation. Patient states she does feel somewh (unknown) (no (unknown) (unknown) Plt Count (units (unkn own) date) (150-400) X103/uL unknown) (unknown) (no (unknown) (unknown) Plt Count 63 L (units (unknown) date) (150-400) X103/uL unknown) (unknown) (no (unknown) (unknown) Potassium (units (unkn own) date) (3.4-5.1) mmol/L unknown) (unknown) (no (unknown) (unknown) Potassium 3.7 (units ( unknown) date) (3.4-5.1) mmol/L unknown) (unknown) (no (unknown) (unknown) Test (units (unknown) date) Serum,Qual Stat unknown) (unknown) (no (unknown) (unknown) Prescriptions: (units (unknown) date) unknown) (unknown) (no (unknown) (unknown) Previous Rx's (units ( unknown) date) unknown) (unknown) (no (unknown) (unknown) Pulse Oximetry 100 (units (unknown) date) 06/12/22 05:42 unknown) (unknown) (no (unknown) (unknown) Pulse Oximetry 100 (units (unknown) date) unknown) (unknown) (no (unknown) (unknown) Pulse Rate 103 H (units (unknown) date) 06/12/22 05:42 unknown) (unknown) (no (unknown) (unknown) Pulse Rate 103 H (units (unknown) date) unknown) (unknown) (no (unknown) (unknown) RBC (4.0-5.2) (units ( unknown) date) X106/uL unknown) (unknown) (no (unknown) (unknown) RBC 4.11 (4.0-5.2) (units (unknown) date) X106/uL unknown) (unknown) (no (unknown) (unknown) RDW (11.6-14.8) % (units (unknown) date) unknown) (unknown) (no (unknown) (unknown) RDW 16.1 H (units (unk nown) date) (11.6-14.8) % unknown) (unknown) (no (unknown) (unknown) RESPIRATORY: Clear (units (unknown) date) to auscultation. unknown) Breath sounds equal bilaterally. No wheezes, (unknown) (no (unknown) (unknown) RESPIRATORY: (units (u nknown) date) Denies dyspnea, unknown) cough, wheezing, hemoptysis, sputum. (unknown) (no (unknown) (unknown) Referrals: (units (unk nown) date) unknown) (unknown) (no (unknown) (unknown) Related Data (units (u nknown) date) unknown) (unknown) (no (unknown) (unknown) Respiratory Rate (units (unknown) date) 22 06/12/22 05:42 unknown) (unknown) (no (unknown) (unknown) Respiratory Rate (units (unknown) date) 22 unknown) (unknown) (no (unknown) (unknown) Review of Systems (units (unknown) date) unknown) (unknown) (no (unknown) (unknown) S/P myringotomy (units (unknown) date) with insertion of unknown) tube (unknown) (no (unknown) (unknown) SKIN: Denies rash, (units (unknown) date) skin lesions, or unknown) other (unknown) (no (unknown) (unknown) SKIN: No rash or (units (unknown) date) erythema of visible unknown) areas (unknown) (no (unknown) (unknown) (spontaneous (units (unknown) date) vaginal delivery) unknown) (-09/05/18) (unknown) (no (unknown) (unknown) Serum , (units (unknown) date) Qual (Negative) unknown) (unknown) (no (unknown) (unknown) Serum , (units (unknown) date) Qual Negative unknown) (Negative) (unknown) (no (unknown) (unknown) Signed By: (units (unk nown) date) unknown) (unknown) (no (unknown) (unknown) Smoker (units (unkno wn) date) unknown) (unknown) (no (unknown) (unknown) Smoking Status: (units (unknown) date) Former smoker unknown) (unknown) (no (unknown) (unknown) Social History (units (unknown) date) (Reviewed 06/12/22 unknown) @ 06:13 by Reinaldo Arthur DO) (unknown) (no (unknown) (unknown) Sodium (137-145) (units (unknown) date) mmol/L unknown) (unknown) (no (unknown) (unknown) Sodium 137 (units (unk nown) date) (137-145) mmol/L unknown) (unknown) (no (unknown) (unknown) Stand Alone Forms: (units (unknown) date) Patient Portal/API unknown) (unknown) (no (unknown) (unknown) Stated Complaint: (units (unknown) date) abd pain, n/v unknown) (unknown) (no (unknown) (unknown) Stop: 06/12/22 (units (unknown) date) 06:06 unknown) (unknown) (no (unknown) (unknown) Stop: 06/12/22 (units (unknown) date) 06:48 unknown) (unknown) (no (unknown) (unknown) Substance Use (units ( unknown) date) Type: does not use unknown) (unknown) (no (unknown) (unknown) Surgical History (units (unknown) date) (Reviewed 06/12/22 unknown) @ 06:13 by Reinaldo Arthur DO) (unknown) (no (unknown) (unknown) Temperature 97.7 F (units (unknown) date) 06/12/22 05:42 unknown) (unknown) (no (unknown) (unknown) Temperature 97.7 F (units (unknown) date) unknown) (unknown) (no (unknown) (unknown) Time Seen by (units (u nknown) date) Provider: 06/12/22 unknown) 05:42 (unknown) (no (unknown) (unknown) Total Bilirubin (units (unknown) date) (0.2-1.3) mg/dL unknown) (unknown) (no (unknown) (unknown) Total Bilirubin (units (unknown) date) 0.6 (0.2-1.3) mg/dL unknown) (unknown) (no (unknown) (unknown) Total Protein (units ( unknown) date) (6.3-8.2) g/dL unknown) (unknown) (no (unknown) (unknown) Total Protein 7.0 (units (unknown) date) (6.3-8.2) g/dL unknown) (unknown) (no (unknown) (unknown) Vital Signs - 8 hr (units (unknown) date) unknown) (unknown) (no (unknown) (unknown) Vital Signs (units (un known) date) unknown) (unknown) (no (unknown) (unknown) Vital signs: (units (u nknown) date) unknown) (unknown) (no (unknown) (unknown) WBC (4.5-11.0) (units (unknown) date) X103/uL unknown) (unknown) (no (unknown) (unknown) WBC 4.0 L (units (unkn own) date) (4.5-11.0) X103/uL unknown) (unknown) (no (unknown) (unknown) [Embedded Image (units (unknown) date) Not Available] unknown) (unknown) (no (unknown) (unknown) [METOCLOPRAMIDE] (units (unknown) date) unknown) (unknown) (no (unknown) (unknown) abdominal and (units ( unknown) date) pelvic pain along unknown) with persistent nausea and vomiting. She states (unknown) (no (unknown) (unknown) acetaminophen 325 (units (unknown) date) mg tablet 325 mg PO unknown) Q6H PRN pain #20 tabs 02/05/20 (unknown) (no (unknown) (unknown) acetaminophen (units ( unknown) date) [Tylenol] 325 mg unknown) tablet (unknown) (no (unknown) (unknown) alcohol intake (units (unknown) date) frequency: 3 or unknown) more drinks per day (unknown) (no (unknown) (unknown) alcohol intake: (units (unknown) date) former unknown) (unknown) (no (unknown) (unknown) at better now than (units (unknown) date) what she did when unknown) she came in. Her labs are relatively (unknown) (no (unknown) (unknown) choice. Please (units (unknown) date) take them as unknown) directed and as needed. Sure to increase your (unknown) (no (unknown) (unknown) choice. She was (units (unknown) date) given strict return unknown) precautions. She is no urinary symptoms. (unknown) (no (unknown) (unknown) current (units (unkno wn) date) occupational unknown) exposures/hazards: Yes (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 with Pandemic ) (unknown) (no (unknown) (unknown) diphenhydramine (units (unknown) date) HCl 25 mg capsule unknown) 25 mg PO BEDTIME PRN insomnia #20 02/05/20 (unknown) (no (unknown) (unknown) diphenhydramine (units (unknown) date) HCl [Benadryl] 25 unknown) mg capsule (unknown) (no (unknown) (unknown) dizziness. (units (unk nown) date) unknown) (unknown) (no (unknown) (unknown) docusate sodium (units (unknown) date) 100 mg capsule 100 unknown) mg PO BID #30 caps 02/05/20 (unknown) (no (unknown) (unknown) docusate sodium (units (unknown) date) [Colace] 100 mg unknown) capsule (unknown) (no (unknown) (unknown) does have a (units (un known) date) history of unknown) endometriosis and also ovarian cysts. We discussed (unknown) (no (unknown) (unknown) dysuria, frequency (units (unknown) date) or urgency. She unknown) denies any vaginal discharge. She states (unknown) (no (unknown) (unknown) education level: (units (unknown) date) college unknown) (unknown) (no (unknown) (unknown) emergency (units (unkn own) date) department for any unknown) new or worsening symptoms. (unknown) (no (unknown) (unknown) renee/synagogue: (units (unknown) date) [employer] unknown) (unknown) (no (unknown) (unknown) fluid intake. (units ( unknown) date) Contact your unknown) primary provider for follow-up. Return to the (unknown) (no (unknown) (unknown) home with symptom (units (unknown) date) control and unknown) returning if her symptoms worsen. We discussed (unknown) (no (unknown) (unknown) household members: (units (unknown) date) spouse and children unknown) (unknown) (no (unknown) (unknown) hydrocodone (units (un known) date) [HYDROCODONE] unknown) AdvReac Unknown VOMITING Verified 03/10/20 08:13 (unknown) (no (unknown) (unknown) ibuprofen 600 mg (units (unknown) date) Tablet unknown) (unknown) (no (unknown) (unknown) ibuprofen 600 mg (units (unknown) date) tablet 600 mg PO unknown) Q6HR PRN Pain, Mild 07/04/20 (unknown) (no (unknown) (unknown) icterus. No (units (un known) date) injection or unknown) drainage. (unknown) (no (unknown) (unknown) ill persons. She (units (unknown) date) is currently having unknown) her menstrual period. She denies any (unknown) (no (unknown) (unknown) improves with (units ( unknown) date) rest. She denies unknown) any radiation of her pain. (unknown) (no (unknown) (unknown) marital status: (units (unknown) date) unknown) (unknown) (no (unknown) (unknown) metoclopramide (units (unknown) date) Allergy Mild unknown) RASH/HIVES Verified 03/10/20 08:13 (unknown) (no (unknown) (unknown) number of (units (unkn own) date) children: 1 unknown) (unknown) (no (unknown) (unknown) obvious distress. (units (unknown) date) unknown) (unknown) (no (unknown) (unknown) occupational (units (u nknown) date) status: employed unknown) (unknown) (no (unknown) (unknown) on any further (units (unknown) date) workup for now. unknown) Medications will be sent to the pharmacy of her (unknown) (no (unknown) (unknown) ondansetron 4 mg (units (unknown) date) disintegrating 4 mg unknown) PO Q6H PRN nausea and 06/12/22 (unknown) (no (unknown) (unknown) ondansetron 4 mg (units (unknown) date) disintegrating 4 mg unknown) PO Q8H PRN nausea and 01/01/20 (unknown) (no (unknown) (unknown) ondansetron 4 mg (units (unknown) date) disintegrating 4 mg unknown) PO Q8H PRN nausea and 02/05/20 (unknown) (no (unknown) (unknown) ondansetron 4 mg (units (unknown) date) tablet,disintegrati unknown) ng (unknown) (no (unknown) (unknown) options to include (units (unknown) date) further workup to unknown) include CT scan/ultrasound or discharging (unknown) (no (unknown) (unknown) prenat.vits,otis,mi (units (unknown) date) [id number] 1 tab unknown) PO DAILY 12/30/19 07/03/20 (unknown) (no (unknown) (unknown) prenat.vits,otis,mi (units (unknown) date) [id number] Tablet unknown) (unknown) (no (unknown) (unknown) rales, or rhonchi. (units (unknown) date) unknown) (unknown) (no (unknown) (unknown) second hand (units (un known) date) exposure: No unknown) (growing up as a child - not currently) (unknown) (no (unknown) (unknown) seizures, (units (unkn own) date) incoordination. unknown) (unknown) (no (unknown) (unknown) somewhat (units (unkno wn) date) reminiscent of when unknown) she had morning sickness with a . She (unknown) (no (unknown) (unknown) special renee (units ( unknown) date) needs: No unknown) (unknown) (no (unknown) (unknown) states her pain is (units (unknown) date) rather persistent unknown) and seems to be worse with motion and (unknown) (no (unknown) (unknown) substance use (units ( unknown) date) type: does not use unknown) (unknown) (no (unknown) (unknown) tablet vomiting (units (unknown) date) #14 tabs unknown) (unknown) (no (unknown) (unknown) tablet vomiting (units (unknown) date) #20 tabs unknown) (unknown) (no (unknown) (unknown) tablet vomiting (units (unknown) date) #30 tabs unknown) (unknown) (no (unknown) (unknown) that she is become (units (unknown) date) dizzy, weak and unknown) lightheaded. She states that this is (unknown) (no (unknown) (unknown) that she is had no (units (unknown) date) change in diet or unknown) medications and denies exposure to other (unknown) (no (unknown) (unknown) the risks and (units ( unknown) date) benefits of this. unknown) After this discussion the patient opted to hold (unknown) (no (unknown) (unknown) tonsillar (units (unkn own) date) hypertrophy or unknown) exudate. Airway patent. (unknown) (no (unknown) (unknown) tramadol 50 mg (units (unknown) date) tablet 50 mg PO Q6H unknown) PRN pain #10 tabs 06/12/22 (unknown) (no (unknown) (unknown) tramadol 50 mg (units (unknown) date) tablet unknown) (unknown) (no (unknown) (unknown) unremarkable. (units ( unknown) date) test was unknown) negative. I did discuss this with her. She (unknown) (no (unknown) (unknown) vomiting, ovarian (units (unknown) date) cysts, alcohol unknown) abuse presents with 2 days of severe lower Result panel 102 (unknown) (no date) (unknown) (unknown) Flu A (units (unkn own) NEGATIVE unknown) (unknown) (no date) (unknown) (unknown) Flu B (units (unkn own) NEGATIVE unknown) (unknown) (no date) (unknown) (unknown) Negative (units (unkn own) unknown) (unknown) (no date) (unknown) (unknown) Negative (units (unkn own) unknown) Result panel 103 (unknown) (no (unknown) (unknown) (no value) (units (unk nown) date) unknown) (unknown) (no (unknown) (unknown) <Electronically (units (unknown) date) signed by Reinaldo Arthur D.O.> (unknown) (no (unknown) (unknown) <Electronically (units (unknown) date) signed by Will Benitez D.O.> (unknown) (no (unknown) (unknown) <Reinaldo Arthur DO (units (unknown) date) - Last Filed: unknown) 06/13/22 01:34> (unknown) (no (unknown) (unknown) <Will Benitez (units (unknown) date) - Last Filed: unknown) 06/12/22 08:53> (unknown) (no (unknown) (unknown) (1-3) #30 tabs (units (unknown) date) unknown) (unknown) (no (unknown) (unknown) (Benadryl) caps (units (unknown) date) unknown) (unknown) (no (unknown) (unknown) (Colace) (units (unkno wn) date) unknown) (unknown) (no (unknown) (unknown) (Tylenol) (units (unkn own) date) unknown) (unknown) (no (unknown) (unknown) [id number] (units (unkn own) date) unknown) (unknown) (no (unknown) (unknown) 06/12/22 06/12/22 (units (unknown) date) 06/12/22 unknown) Range/Units (unknown) (no (unknown) (unknown) 06/12/22 06/12/22 (units (unknown) date) Range/Units unknown) (unknown) (no (unknown) (unknown) 06/12/22 06:47 (units (unknown) date) unknown) (unknown) (no (unknown) (unknown) 06/12/22 0854 (units ( unknown) date) unknown) (unknown) (no (unknown) (unknown) 06/12/22 (units (unkno wn) date) unknown) (unknown) (no (unknown) (unknown) 06/13/22 0134 (units ( unknown) date) unknown) (unknown) (no (unknown) (unknown) 05:42 (units (unkno wn) date) unknown) (unknown) (no (unknown) (unknown) 06:47 06:47 06:47 (units (unknown) date) unknown) (unknown) (no (unknown) (unknown) 08:00 08:19 (units (un known) date) unknown) (unknown) (no (unknown) (unknown) 1 tab PO DAILY (units (unknown) date) unknown) (unknown) (no (unknown) (unknown) 100 mg PO BID Qty: (units (unknown) date) 30 0RF unknown) (unknown) (no (unknown) (unknown) 12 point review of (units (unknown) date) systems is negative unknown) except for those stated above (unknown) (no (unknown) (unknown) 25 mg PO BEDTIME (units (unknown) date) PRN (Reason: unknown) insomnia) Qty: 20 0RF (unknown) (no (unknown) (unknown) 325 mg PO Q6H PRN (units (unknown) date) (Reason: pain) Qty: unknown) 20 0RF (unknown) (no (unknown) (unknown) 31-year-old female (units (unknown) date) former smoker with unknown) history of abdominal pain, nausea and (unknown) (no (unknown) (unknown) 4 mg PO Q6H PRN (units (unknown) date) (Reason: nausea and unknown) vomiting) Qty: 14 0RF (unknown) (no (unknown) (unknown) 4 mg PO Q8H PRN (units (unknown) date) (Reason: nausea and unknown) vomiting) Qty: 20 0RF (unknown) (no (unknown) (unknown) 4 mg PO Q8H PRN (units (unknown) date) (Reason: nausea and unknown) vomiting) Qty: 30 0RF (unknown) (no (unknown) (unknown) 50 mg PO Q6H PRN (units (unknown) date) (Reason: pain) Qty: unknown) 10 0RF (unknown) (no (unknown) (unknown) 600 mg PO Q6HR PRN (units (unknown) date) (Reason: Pain, Mild unknown) (1-3)) Qty: 30 0RF (unknown) (no (unknown) (unknown) ALT (<35) IU/L (units (unknown) date) unknown) (unknown) (no (unknown) (unknown) ALT 15 (<35) IU/L (units (unknown) date) unknown) (unknown) (no (unknown) (unknown) AST (14-36) IU/L (units (unknown) date) unknown) (unknown) (no (unknown) (unknown) AST 45 H (14-36) (units (unknown) date) IU/L unknown) (unknown) (no (unknown) (unknown) Abdominal pain, (units (unknown) date) Nausea and vomiting unknown) (unknown) (no (unknown) (unknown) Activity (units (unkno wn) date) Restrictions/Additi unknown) onal Instructions: (unknown) (no (unknown) (unknown) Age/Sex: 31 / F (units (unknown) date) unknown) (unknown) (no (unknown) (unknown) Albumin (3.5-5.0) (units (unknown) date) g/dL unknown) (unknown) (no (unknown) (unknown) Albumin 4.3 (units (un known) date) (3.5-5.0) g/dL unknown) (unknown) (no (unknown) (unknown) Albumin/Globulin (units (unknown) date) Ratio (1.0-2.8) unknown) (unknown) (no (unknown) (unknown) Albumin/Globulin (units (unknown) date) Ratio 1.6 (1.0-2.8) unknown) (unknown) (no (unknown) (unknown) Alcoholism (units (unk nown) date) unknown) (unknown) (no (unknown) (unknown) Alkaline (units (unkno wn) date) Phosphatase unknown) (38-126) U/L (unknown) (no (unknown) (unknown) Alkaline (units (unkno wn) date) Phosphatase 74 unknown) (38-126) U/L (unknown) (no (unknown) (unknown) Allergies (units (unkn own) date) unknown) (unknown) (no (unknown) (unknown) Allergy/AdvReac (units (unknown) date) Type Severity unknown) Reaction Status Date / Time (unknown) (no (unknown) (unknown) Anemia (-2018) (units (unknown) date) unknown) (unknown) (no (unknown) (unknown) BACK: Nontender (units (unknown) date) without deformity unknown) or crepitance. No flank tenderness. (unknown) (no (unknown) (unknown) BUN (7-17) mg/dL (units (unknown) date) unknown) (unknown) (no (unknown) (unknown) BUN 11 (7-17) (units ( unknown) date) mg/dL unknown) (unknown) (no (unknown) (unknown) BUN/Creatinine (units (unknown) date) Ratio (6-22) unknown) (unknown) (no (unknown) (unknown) BUN/Creatinine (units (unknown) date) Ratio 17.7 (6-22) unknown) (unknown) (no (unknown) (unknown) Baso # (Auto) (units ( unknown) date) (0-100) /uL unknown) (unknown) (no (unknown) (unknown) Baso # (Auto) 0 (units (unknown) date) (0-100) /uL unknown) (unknown) (no (unknown) (unknown) Baso % (Auto) (units ( unknown) date) (0-2) % unknown) (unknown) (no (unknown) (unknown) Baso % (Auto) 1.0 (units (unknown) date) (0-2) % unknown) (unknown) (no (unknown) (unknown) Blood Pressure (units (unknown) date) 101/59 L 06/12/22 unknown) 05:42 (unknown) (no (unknown) (unknown) Blood Pressure (units (unknown) date) 101/59 L unknown) (unknown) (no (unknown) (unknown) CARDIOVASCULAR: (units (unknown) date) Denies chest pain, unknown) palpitations, orthopnea, edema, (unknown) (no (unknown) (unknown) CARDIOVASCULAR: (units (unknown) date) Regular rate and unknown) rhythm without murmurs, gallops, or rubs. (unknown) (no (unknown) (unknown) Calcium (8.4-10.2) (units (unknown) date) mg/dL unknown) (unknown) (no (unknown) (unknown) Calcium 8.2 L (units ( unknown) date) (8.4-10.2) mg/dL unknown) (unknown) (no (unknown) (unknown) Carbon Dioxide (units (unknown) date) (22-32) mmol/L unknown) (unknown) (no (unknown) (unknown) Carbon Dioxide 23 (units (unknown) date) (22-32) mmol/L unknown) (unknown) (no (unknown) (unknown) Chief Complaint: (units (unknown) date) Nausea/Vomiting/Antoinette unknown) rrhea (unknown) (no (unknown) (unknown) Chloride (98-107) (units (unknown) date) mmol/L unknown) (unknown) (no (unknown) (unknown) Chloride 99 (units (un known) date) (98-107) mmol/L unknown) (unknown) (no (unknown) (unknown) Clinical (units (unkno wn) date) Impression: unknown) (unknown) (no (unknown) (unknown) Course (units (unkno wn) date) unknown) (unknown) (no (unknown) (unknown) Creatinine (units (unk nown) date) (0.52-1.04) mg/dL unknown) (unknown) (no (unknown) (unknown) Creatinine 0.62 (units (unknown) date) (0.52-1.04) mg/dL unknown) (unknown) (no (unknown) (unknown) : 1990 (units (unknown) date) Acct:[id number] unknown) (unknown) (no (unknown) (unknown) Date of Service: (units (unknown) date) 06/12/22 unknown) (unknown) (no (unknown) (unknown) Departure (units (unkn own) date) unknown) (unknown) (no (unknown) (unknown) Discharge Plan (units (unknown) date) unknown) (unknown) (no (unknown) (unknown) Discontinued (units (u nknown) date) Medications unknown) (unknown) (no (unknown) (unknown) Documented By: BS (units (unknown) date) unknown) (unknown) (no (unknown) (unknown) Documented By: MLM (units (unknown) date) unknown) (unknown) (no (unknown) (unknown) Dr benitez: (units (unk n) date) Received turned unknown) over. Reviewed patient's history and physical exam. (unknown) (no (unknown) (unknown) ENT: Nose without (units (unknown) date) bleeding, purulent unknown) drainage. Throat without erythema, (unknown) (no (unknown) (unknown) ER Physician: (units ( unknown) date) Will Benitez D.O. unknown) (unknown) (no (unknown) (unknown) EXTREMITIES: No (units (unknown) date) edema or joint unknown) tenderness. (unknown) (no (unknown) (unknown) EYES: Pupils equal (units (unknown) date) round and reactive. unknown) Extraocular motions intact. No scleral (unknown) (no (unknown) (unknown) Emergency Report (units (unknown) date) unknown) (unknown) (no (unknown) (unknown) Eos # (Auto) (units (u nknown) date) (0-450) /uL unknown) (unknown) (no (unknown) (unknown) Eos # (Auto) 0 (units (unknown) date) (0-450) /uL unknown) (unknown) (no (unknown) (unknown) Eos % (Auto) (2-4) (units (unknown) date) % unknown) (unknown) (no (unknown) (unknown) Eos % (Auto) 0.2 L (units (unknown) date) (2-4) % unknown) (unknown) (no (unknown) (unknown) Estimated GFR > 60 (units (unknown) date) (>60) mL/min unknown) (unknown) (no (unknown) (unknown) Estimated GFR (units ( unknown) date) (>60) mL/min unknown) (unknown) (no (unknown) (unknown) Exam Narrative: (units (unknown) date) unknown) (unknown) (no (unknown) (unknown) Exam (units (unkno wn) date) unknown) (unknown) (no (unknown) (unknown) Family History (units (unknown) date) (Reviewed 06/12/22 unknown) @ 06:13 by Reinaldo Arthur DO) (unknown) (no (unknown) (unknown) Family/Other (units (u nknown) date) Alcoholism unknown) (unknown) (no (unknown) (unknown) Family/Other (units (u nknown) date) Diabetes mellitus unknown) (unknown) (no (unknown) (unknown) Father Alcoholism (units (unknown) date) unknown) (unknown) (no (unknown) (unknown) Tonia Schneider MD (units (unknown) date) [Primary Care unknown) Provider] (unknown) (no (unknown) (unknown) GASTROINTESTINAL: (units (unknown) date) Abdomen soft, unknown) tender in lower abdomen present, nondistended. (unknown) (no (unknown) (unknown) GASTROINTESTINAL: (units (unknown) date) See HPI unknown) (unknown) (no (unknown) (unknown) GENERAL: See HPI (units (unknown) date) unknown) (unknown) (no (unknown) (unknown) GENERAL: [31] year (units (unknown) date) old patient appears unknown) stated age. Well-developed patient, in (unknown) (no (unknown) (unknown) : Denies (units (unk nown) date) dysuria, frequency, unknown) incontinence, hematuria, urinary retention. (unknown) (no (unknown) (unknown) General (units (unkno wn) date) unknown) (unknown) (no (unknown) (unknown) Globulin (1.7-4.1) (units (unknown) date) g/dL unknown) (unknown) (no (unknown) (unknown) Globulin 2.7 (units (u nknown) date) (1.7-4.1) g/dL unknown) (unknown) (no (unknown) (unknown) Glucose (70-100) (units (unknown) date) mg/dL unknown) (unknown) (no (unknown) (unknown) Glucose 122 H (units ( unknown) date) (70-100) mg/dL unknown) (unknown) (no (unknown) (unknown) Grandfather (units (un known) date) Smoker unknown) (unknown) (no (unknown) (unknown) Grandfather (units (un known) date) Unknown unknown) whether patient has any health problems (unknown) (no (unknown) (unknown) Grandmother (units (un known) date) Diabetes unknown) mellitus (unknown) (no (unknown) (unknown) Grandmother (units (un known) date) Hypoglycemia unknown) (unknown) (no (unknown) (unknown) H/O dilation and (units (unknown) date) curettage unknown) (-12/14/16) (unknown) (no (unknown) (unknown) H/O wisdom tooth (units (unknown) date) extraction (-2013) unknown) (unknown) (no (unknown) (unknown) HEAD: Atraumatic. (units (unknown) date) Normocephalic. unknown) (unknown) (no (unknown) (unknown) HEENT: Denies (units ( unknown) date) sinus pain, ear unknown) pain, sore throat, difficulty swallowing, (unknown) (no (unknown) (unknown) HPI - Abdominal (units (unknown) date) Pain unknown) (unknown) (no (unknown) (unknown) HPI narrative: (units (unknown) date) unknown) (unknown) (no (unknown) (unknown) Hct (36-46) % (units ( unknown) date) unknown) (unknown) (no (unknown) (unknown) Hct 32.2 L (36-46) (units (unknown) date) % unknown) (unknown) (no (unknown) (unknown) Hgb (12.0-16.0) (units (unknown) date) g/dL unknown) (unknown) (no (unknown) (unknown) Hgb 10.6 L (units (unk nown) date) (12.0-16.0) g/dL unknown) (unknown) (no (unknown) (unknown) History of Present (units (unknown) date) Illness unknown) (unknown) (no (unknown) (unknown) Home Medications (units (unknown) date) unknown) (unknown) (no (unknown) (unknown) Hydromorphone HCl (units (unknown) date) (Hydromorphone 0.5 unknown) Mg Inj) 0.5 mg IV NOW ONE (unknown) (no (unknown) (unknown) Hydromorphone HCl (units (unknown) date) (Hydromorphone 1 Mg unknown) Inj) 1 mg IM NOW ONE (unknown) (no (unknown) (unknown) I recommend that (units (unknown) date) you continue to unknown) take all of your medications as directed. (unknown) (no (unknown) (unknown) Influenza A (units (un known) date) (RT-PCR) (NEGATIVE) unknown) (unknown) (no (unknown) (unknown) Influenza A (units (un known) date) (RT-PCR) Flu a unknown) negative (NEGATIVE) (unknown) (no (unknown) (unknown) Influenza B (units (un known) date) (RT-PCR) (NEGATIVE) unknown) (unknown) (no (unknown) (unknown) Influenza B (units (un known) date) (RT-PCR) Flu b unknown) negative (NEGATIVE) (unknown) (no (unknown) (unknown) Initial Vital (units ( unknown) date) Signs unknown) (unknown) (no (unknown) (unknown) Initial Vital (units ( unknown) date) Signs: unknown) (unknown) (no (unknown) (unknown) Insomnia (units (unkno wn) date) unknown) (unknown) (no (unknown) (unknown) Instructions: DI (units (unknown) date) for Abdominal unknown) Pain-Adult (unknown) (no (unknown) (unknown) [facility] (units (unknown) date) [address] unknown) [place] [address] (unknown) (no (unknown) (unknown) Lab Data (units (unkno wn) date) unknown) (unknown) (no (unknown) (unknown) Lab Results (units (un known) date) unknown) (unknown) (no (unknown) (unknown) Labs: (units (unkno wn) date) unknown) (unknown) (no (unknown) (unknown) Lactate (0.7-2.1) (units (unknown) date) mmol/L unknown) (unknown) (no (unknown) (unknown) Lactate 2.7 H (units ( unknown) date) (0.7-2.1) mmol/L unknown) (unknown) (no (unknown) (unknown) Last Admin: (units (un known) date) 06/12/22 06:52 unknown) Dose: 4 mg (unknown) (no (unknown) (unknown) Last Admin: (units (un known) date) 06/12/22 06:54 unknown) Dose: 1 mg (unknown) (no (unknown) (unknown) Last Admin: (units (un known) date) 06/12/22 08:23 unknown) Dose: 4 mg (unknown) (no (unknown) (unknown) Last Admin: (units (un known) date) 06/12/22 08:23 unknown) Dose: 40 mg (unknown) (no (unknown) (unknown) Last Admin: (units (un known) date) 06/12/22 09:43 unknown) Dose: Not Given (unknown) (no (unknown) (unknown) Lipase (23-300) (units (unknown) date) U/L unknown) (unknown) (no (unknown) (unknown) Lipase 134 (units (unk nown) date) (23-300) U/L unknown) (unknown) (no (unknown) (unknown) Lymph # (Auto) (units (unknown) date) (0000-0577) /uL unknown) (unknown) (no (unknown) (unknown) Lymph # (Auto) (units (unknown) date) 1000 L (3430-1813) unknown) /uL (unknown) (no (unknown) (unknown) Lymph % (Auto) (units (unknown) date) (25-40) % unknown) (unknown) (no (unknown) (unknown) Lymph % (Auto) (units (unknown) date) 25.3 (25-40) % unknown) (unknown) (no (unknown) (unknown) MCH (26-34) PG (units (unknown) date) unknown) (unknown) (no (unknown) (unknown) MCH 25.9 L (26-34) (units (unknown) date) PG unknown) (unknown) (no (unknown) (unknown) MCHC (30-36) % (units (unknown) date) unknown) (unknown) (no (unknown) (unknown) MCHC 33.0 (30-36) (units (unknown) date) % unknown) (unknown) (no (unknown) (unknown) MCV (80-100) fL (units (unknown) date) unknown) (unknown) (no (unknown) (unknown) MCV 78.4 L (units (unk nown) date) (80-100) fL unknown) (unknown) (no (unknown) (unknown) MDM - Abdominal (units (unknown) date) Pain unknown) (unknown) (no (unknown) (unknown) MDM Narrative (units ( unknown) date) unknown) (unknown) (no (unknown) (unknown) MUSCULOSKELETAL: (units (unknown) date) denies weakness, unknown) joint pain, or bony pain (unknown) (no (unknown) (unknown) Medical History (units (unknown) date) (Reviewed 06/12/22 unknown) @ 06:13 by Reinaldo Arthur DO) (unknown) (no (unknown) (unknown) Medical decision (units (unknown) date) making narrative: unknown) (unknown) (no (unknown) (unknown) Medication (units (unk nown) date) Instructions unknown) Recorded Confirmed (unknown) (no (unknown) (unknown) Medication (units (unk nown) date) Instructions unknown) Recorded (unknown) (no (unknown) (unknown) Medications to try (units (unknown) date) to help your unknown) symptoms today were sent to the pharmacy of your (unknown) (no (unknown) (unknown) Menometrorrhagia (units (unknown) date) unknown) (unknown) (no (unknown) (unknown) Mcintosh # (Auto) (units ( unknown) date) (0-900) /uL unknown) (unknown) (no (unknown) (unknown) Mc[place]osh # (Auto) 200 (units (unknown) date) (0-900) /uL unknown) (unknown) (no (unknown) (unknown) Mc[place]osh % (Auto) (units ( unknown) date) (3-14) % unknown) (unknown) (no (unknown) (unknown) Mc[place]osh % (Auto) 4.8 (units (unknown) date) (3-14) % unknown) (unknown) (no (unknown) (unknown) Mother Diabetes (units (unknown) date) mellitus unknown) (unknown) (no (unknown) (unknown) NECK: Trachea (units ( unknown) date) midline. Non tender unknown) (unknown) (no (unknown) (unknown) NEURO: AOx3. (units (u nknown) date) unknown) (unknown) (no (unknown) (unknown) NEUROLOGIC: Denies (units (unknown) date) weakness, headache, unknown) numbness, change in speech, confusion, (unknown) (no (unknown) (unknown) Narrative (units (unkn own) date) unknown) (unknown) (no (unknown) (unknown) Narrative: (units (unk nown) date) unknown) (unknown) (no (unknown) (unknown) Neut # (Auto) (units ( unknown) date) (6109-2729) /uL unknown) (unknown) (no (unknown) (unknown) Neut # (Auto) 2800 (units (unknown) date) (3289-4989) /uL unknown) (unknown) (no (unknown) (unknown) Neut % (Auto) (units ( unknown) date) (50-75) % unknown) (unknown) (no (unknown) (unknown) Neut % (Auto) 68.7 (units (unknown) date) (50-75) % unknown) (unknown) (no (unknown) (unknown) New (units (unkno wn) date) unknown) (unknown) (no (unknown) (unknown) No Action (units (unkn own) date) unknown) (unknown) (no (unknown) (unknown) No indication for (units (unknown) date) antibiotics. She unknown) expressed understanding and agreement. (unknown) (no (unknown) (unknown) Obesity (units (unkno wn) date) unknown) (unknown) (no (unknown) (unknown) Ondansetron HCl (units (unknown) date) (Ondansetron 4 Mg unknown) Odt) 4 mg SL NOW PRN (unknown) (no (unknown) (unknown) Ondansetron HCl (units (unknown) date) (Ondansetron 4 Mg/2 unknown) Ml Inj) 4 mg IV NOW ONE (unknown) (no (unknown) (unknown) Ondansetron HCl (units (unknown) date) (Ondansetron 4 Mg/2 unknown) Ml Inj) 4 mg IV NOW PRN (unknown) (no (unknown) (unknown) Ordered: (units (unkno wn) date) unknown) (unknown) (no (unknown) (unknown) Orders (units (unkno wn) date) unknown) (unknown) (no (unknown) (unknown) Overweight (units (unk nown) date) unknown) (unknown) (no (unknown) (unknown) Oxygen Delivery (units (unknown) date) Method 06/12/22 unknown) 05:42 (unknown) (no (unknown) (unknown) Oxygen Delivery (units (unknown) date) Method Room Air unknown) (unknown) (no (unknown) (unknown) PRN Reason: Nausea (units (unknown) date) And Vomiting unknown) (unknown) (no (unknown) (unknown) PSYCHIATRIC: No (units (unknown) date) concerning unknown) psychosocial issues. (unknown) (no (unknown) (unknown) Pantoprazole (units (u nknown) date) Sodium unknown) (Pantoprazole 40 Mg Vial) 40 mg IV NOW ONE (unknown) (no (unknown) (unknown) Patient (units (unkno wn) date) Disposition: Home unknown) (unknown) (no (unknown) (unknown) Patient History (units (unknown) date) unknown) (unknown) (no (unknown) (unknown) Patient: (units (unkno wn) date) Sarah Soto R unknown) MR#: M (unknown) (no (unknown) (unknown) Performed my own (units (unknown) date) independent unknown) evaluation. Patient states she does feel (unknown) (no (unknown) (unknown) Plt Count (units (unkn own) date) (150-400) X103/uL unknown) (unknown) (no (unknown) (unknown) Plt Count 63 L (units (unknown) date) (150-400) X103/uL unknown) (unknown) (no (unknown) (unknown) Potassium (units (unkn own) date) (3.4-5.1) mmol/L unknown) (unknown) (no (unknown) (unknown) Potassium 3.7 (units ( unknown) date) (3.4-5.1) mmol/L unknown) (unknown) (no (unknown) (unknown) Prescriptions: (units (unknown) date) unknown) (unknown) (no (unknown) (unknown) Previous Rx's (units ( unknown) date) unknown) (unknown) (no (unknown) (unknown) Pulse Oximetry 100 (units (unknown) date) 06/12/22 05:42 unknown) (unknown) (no (unknown) (unknown) Pulse Oximetry 100 (units (unknown) date) unknown) (unknown) (no (unknown) (unknown) Pulse Rate 103 H (units (unknown) date) 06/12/22 05:42 unknown) (unknown) (no (unknown) (unknown) Pulse Rate 103 H (units (unknown) date) unknown) (unknown) (no (unknown) (unknown) RBC (4.0-5.2) (units ( unknown) date) X106/uL unknown) (unknown) (no (unknown) (unknown) RBC 4.11 (4.0-5.2) (units (unknown) date) X106/uL unknown) (unknown) (no (unknown) (unknown) RDW (11.6-14.8) % (units (unknown) date) unknown) (unknown) (no (unknown) (unknown) RDW 16.1 H (units (unk nown) date) (11.6-14.8) % unknown) (unknown) (no (unknown) (unknown) RESPIRATORY: Clear (units (unknown) date) to auscultation. unknown) Breath sounds equal bilaterally. No wheezes, (unknown) (no (unknown) (unknown) RESPIRATORY: (units (u nknown) date) Denies dyspnea, unknown) cough, wheezing, hemoptysis, sputum. (unknown) (no (unknown) (unknown) RSV (PCR) (units (unkn own) date) (Negative) unknown) (unknown) (no (unknown) (unknown) RSV (PCR) Negative (units (unknown) date) (Negative) unknown) (unknown) (no (unknown) (unknown) Referrals: (units (unk nown) date) unknown) (unknown) (no (unknown) (unknown) Related Data (units (u nknown) date) unknown) (unknown) (no (unknown) (unknown) Respiratory Rate (units (unknown) date) 06/12/22 05:42 unknown) (unknown) (no (unknown) (unknown) Respiratory Rate (units (unknown) date) 22 unknown) (unknown) (no (unknown) (unknown) Review of Systems (units (unknown) date) unknown) (unknown) (no (unknown) (unknown) S/P myringotomy (units (unknown) date) with insertion of unknown) tube (unknown) (no (unknown) (unknown) SARS-CoV-2 (PCR) (units (unknown) date) (Negative) unknown) (unknown) (no (unknown) (unknown) SARS-CoV-2 (PCR) (units (unknown) date) Negative (Negative) unknown) (unknown) (no (unknown) (unknown) SKIN: Denies rash, (units (unknown) date) skin lesions, or unknown) other (unknown) (no (unknown) (unknown) SKIN: No rash or (units (unknown) date) erythema of visible unknown) areas (unknown) (no (unknown) (unknown) (spontaneous (units (unknown) date) vaginal delivery) unknown) (-09/05/18) (unknown) (no (unknown) (unknown) Serum , (units (unknown) date) Qual (Negative) unknown) (unknown) (no (unknown) (unknown) Serum , (units (unknown) date) Qual Negative unknown) (Negative) (unknown) (no (unknown) (unknown) Signed By: (units (unk nown) date) unknown) (unknown) (no (unknown) (unknown) Smoker (units (unkno wn) date) unknown) (unknown) (no (unknown) (unknown) Smoking Status: (units (unknown) date) Former smoker unknown) (unknown) (no (unknown) (unknown) Social History (units (unknown) date) (Reviewed 06/12/22 unknown) @ 06:13 by Reinaldo Arthur DO) (unknown) (no (unknown) (unknown) Sodium (137-145) (units (unknown) date) mmol/L unknown) (unknown) (no (unknown) (unknown) Sodium 137 (units (unk nown) date) (137-145) mmol/L unknown) (unknown) (no (unknown) (unknown) Stand Alone Forms: (units (unknown) date) Patient Portal/API unknown) (unknown) (no (unknown) (unknown) Stated Complaint: (units (unknown) date) abd pain, n/v unknown) (unknown) (no (unknown) (unknown) Stop: 06/12/22 (units (unknown) date) 06:06 unknown) (unknown) (no (unknown) (unknown) Stop: 06/12/22 (units (unknown) date) 06:48 unknown) (unknown) (no (unknown) (unknown) Substance Use (units ( unknown) date) Type: does not use unknown) (unknown) (no (unknown) (unknown) Surgical History (units (unknown) date) (Reviewed 06/12/22 unknown) @ 06:13 by Reinaldo Arthur DO) (unknown) (no (unknown) (unknown) Temperature 97.7 F (units (unknown) date) 06/12/22 05:42 unknown) (unknown) (no (unknown) (unknown) Temperature 97.7 F (units (unknown) date) unknown) (unknown) (no (unknown) (unknown) Time Seen by (units (u nknown) date) Provider: 06/12/22 unknown) 05:42 (unknown) (no (unknown) (unknown) Total Bilirubin (units (unknown) date) (0.2-1.3) mg/dL unknown) (unknown) (no (unknown) (unknown) Total Bilirubin (units (unknown) date) 0.6 (0.2-1.3) mg/dL unknown) (unknown) (no (unknown) (unknown) Total Protein (units ( unknown) date) (6.3-8.2) g/dL unknown) (unknown) (no (unknown) (unknown) Total Protein 7.0 (units (unknown) date) (6.3-8.2) g/dL unknown) (unknown) (no (unknown) (unknown) Vital Signs - 8 hr (units (unknown) date) unknown) (unknown) (no (unknown) (unknown) Vital Signs (units (un known) date) unknown) (unknown) (no (unknown) (unknown) Vital signs: (units (u nknown) date) unknown) (unknown) (no (unknown) (unknown) WBC (4.5-11.0) (units (unknown) date) X103/uL unknown) (unknown) (no (unknown) (unknown) WBC 4.0 L (units (unkn own) date) (4.5-11.0) X103/uL unknown) (unknown) (no (unknown) (unknown) [Embedded Image (units (unknown) date) Not Available] unknown) (unknown) (no (unknown) (unknown) [METOCLOPRAMIDE] (units (unknown) date) unknown) (unknown) (no (unknown) (unknown) abdominal and (units ( unknown) date) pelvic pain along unknown) with persistent nausea and vomiting. She states (unknown) (no (unknown) (unknown) acetaminophen 325 (units (unknown) date) mg tablet 325 mg PO unknown) Q6H PRN pain #20 tabs 02/05/20 (unknown) (no (unknown) (unknown) acetaminophen (units ( unknown) date) [Tylenol] 325 mg unknown) tablet (unknown) (no (unknown) (unknown) alcohol intake (units (unknown) date) frequency: 3 or unknown) more drinks per day (unknown) (no (unknown) (unknown) alcohol intake: (units (unknown) date) former unknown) (unknown) (no (unknown) (unknown) choice. Please (units (unknown) date) take them as unknown) directed and as needed. Sure to increase your (unknown) (no (unknown) (unknown) choice. She was (units (unknown) date) given strict return unknown) precautions. She is no urinary symptoms. (unknown) (no (unknown) (unknown) current (units (unkno wn) date) occupational unknown) exposures/hazards: Yes (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 with Pandemic ) (unknown) (no (unknown) (unknown) diphenhydramine (units (unknown) date) HCl 25 mg capsule unknown) 25 mg PO BEDTIME PRN insomnia #20 02/05/20 (unknown) (no (unknown) (unknown) diphenhydramine (units (unknown) date) HCl [Benadryl] 25 unknown) mg capsule (unknown) (no (unknown) (unknown) dizziness. (units (unk nown) date) unknown) (unknown) (no (unknown) (unknown) docusate sodium (units (unknown) date) 100 mg capsule 100 unknown) mg PO BID #30 caps 02/05/20 (unknown) (no (unknown) (unknown) docusate sodium (units (unknown) date) [Colace] 100 mg unknown) capsule (unknown) (no (unknown) (unknown) does have a (units (un known) date) history of unknown) endometriosis and also ovarian cysts. We discussed (unknown) (no (unknown) (unknown) dysuria, frequency (units (unknown) date) or urgency. She unknown) denies any vaginal discharge. She states (unknown) (no (unknown) (unknown) education level: (units (unknown) date) college unknown) (unknown) (no (unknown) (unknown) emergency (units (unkn own) date) department for any unknown) new or worsening symptoms. (unknown) (no (unknown) (unknown) renee/synagogue: (units (unknown) date) [employer] unknown) (unknown) (no (unknown) (unknown) fluid intake. (units ( unknown) date) Contact your unknown) primary provider for follow-up. Return to the (unknown) (no (unknown) (unknown) home with symptom (units (unknown) date) control and unknown) returning if her symptoms worsen. We discussed (unknown) (no (unknown) (unknown) household members: (units (unknown) date) spouse and children unknown) (unknown) (no (unknown) (unknown) hydrocodone (units (un known) date) [HYDROCODONE] unknown) AdvReac Unknown VOMITING Verified 03/10/20 08:13 (unknown) (no (unknown) (unknown) ibuprofen 600 mg (units (unknown) date) Tablet unknown) (unknown) (no (unknown) (unknown) ibuprofen 600 mg (units (unknown) date) tablet 600 mg PO unknown) Q6HR PRN Pain, Mild 07/04/20 (unknown) (no (unknown) (unknown) icterus. No (units (un known) date) injection or unknown) drainage. (unknown) (no (unknown) (unknown) ill persons. She (units (unknown) date) is currently having unknown) her menstrual period. She denies any (unknown) (no (unknown) (unknown) improves with (units ( unknown) date) rest. She denies unknown) any radiation of her pain. (unknown) (no (unknown) (unknown) marital status: (units (unknown) date) unknown) (unknown) (no (unknown) (unknown) metoclopramide (units (unknown) date) Allergy Mild unknown) RASH/HIVES Verified 03/10/20 08:13 (unknown) (no (unknown) (unknown) number of (units (unkn own) date) children: 1 unknown) (unknown) (no (unknown) (unknown) obvious distress. (units (unknown) date) unknown) (unknown) (no (unknown) (unknown) occupational (units (u nknown) date) status: employed unknown) (unknown) (no (unknown) (unknown) on any further (units (unknown) date) workup for now. unknown) Medications will be sent to the pharmacy of her (unknown) (no (unknown) (unknown) ondansetron 4 mg (units (unknown) date) disintegrating 4 mg unknown) PO Q6H PRN nausea and 06/12/22 (unknown) (no (unknown) (unknown) ondansetron 4 mg (units (unknown) date) disintegrating 4 mg unknown) PO Q8H PRN nausea and 01/01/20 (unknown) (no (unknown) (unknown) ondansetron 4 mg (units (unknown) date) disintegrating 4 mg unknown) PO Q8H PRN nausea and 02/05/20 (unknown) (no (unknown) (unknown) ondansetron 4 mg (units (unknown) date) tablet,disintegrati unknown) ng (unknown) (no (unknown) (unknown) options to include (units (unknown) date) further workup to unknown) include CT scan/ultrasound or discharging (unknown) (no (unknown) (unknown) prenat.vits,otis,mi (units (unknown) date) [id number] 1 tab unknown) PO DAILY 12/30/19 07/03/20 (unknown) (no (unknown) (unknown) prenat.vits,otis,mi (units (unknown) date) [id number] Tablet unknown) (unknown) (no (unknown) (unknown) rales, or rhonchi. (units (unknown) date) unknown) (unknown) (no (unknown) (unknown) second hand (units (un known) date) exposure: No unknown) (growing up as a child - not currently) (unknown) (no (unknown) (unknown) seizures, (units (unkn own) date) incoordination. unknown) (unknown) (no (unknown) (unknown) somewhat better (units (unknown) date) now than what she unknown) did when she came in. Her labs are relatively (unknown) (no (unknown) (unknown) somewhat (units (unkno wn) date) reminiscent of when unknown) she had morning sickness with a . She (unknown) (no (unknown) (unknown) special renee (units ( unknown) date) needs: No unknown) (unknown) (no (unknown) (unknown) states her pain is (units (unknown) date) rather persistent unknown) and seems to be worse with motion and (unknown) (no (unknown) (unknown) substance use (units ( unknown) date) type: does not use unknown) (unknown) (no (unknown) (unknown) tablet vomiting (units (unknown) date) #14 tabs unknown) (unknown) (no (unknown) (unknown) tablet vomiting (units (unknown) date) #20 tabs unknown) (unknown) (no (unknown) (unknown) tablet vomiting (units (unknown) date) #30 tabs unknown) (unknown) (no (unknown) (unknown) that she is become (units (unknown) date) dizzy, weak and unknown) lightheaded. She states that this is (unknown) (no (unknown) (unknown) that she is had no (units (unknown) date) change in diet or unknown) medications and denies exposure to other (unknown) (no (unknown) (unknown) the risks and (units ( unknown) date) benefits of this. unknown) After this discussion the patient opted to hold (unknown) (no (unknown) (unknown) tonsillar (units (unkn own) date) hypertrophy or unknown) exudate. Airway patent. (unknown) (no (unknown) (unknown) tramadol 50 mg (units (unknown) date) tablet 50 mg PO Q6H unknown) PRN pain #10 tabs 06/12/22 (unknown) (no (unknown) (unknown) tramadol 50 mg (units (unknown) date) tablet unknown) (unknown) (no (unknown) (unknown) unremarkable. (units ( unknown) date) test was unknown) negative. I did discuss this with her. She (unknown) (no (unknown) (unknown) vomiting, ovarian (units (unknown) date) cysts, alcohol unknown) abuse presents with 2 days of severe lower Social History date description facility 2022-06-12 00:00 Ex-smoker (finding) [facility] Vital Signs date measurement value units 2022-06-12 00:00 BMI 22.8 kg/m2 2022-06-12 00:00 BP_diastolic 54 mmHg 2022-06-12 00:00 BP_systolic 96 mmHg 2022-06-12 00:00 heart_rate 105 /min 2022-06-12 00:00 height_metric 157.48 cm 2022-06-12 00:00 height_standard 62 in 2022-06-12 00:00 o2_saturation 100 % 2022-06-12 00:00 respiration_rate 22 /min 2022-06-12 00:00 temperature_metric 36.5 C 2022-06-12 00:00 temperature_standard 97.7 F 2022-06-12 00:00 weight_metric 56.69 kg 2022-06-12 00:00 weight_standard 124.98 lb
--- NOTE | 2022-06-16 23:33 | ED Physician Documentation ---
History of Present Illness - Stated complaint Stated Complaint: ETOH, DEPRESSION - Chief complaint Chief Complaint: General - History obtained from History obtained from: Patient - History of Present Illness Timing: Today Improved by: Nothing Worsened by: Palpation - Additonal information Additional information: HPI from patient. On my HPI, patient states that her chief complaint is abdominal pain which began 2 days ago and has progressed in intensity. She says the pain is sharp and diffuse. She endorses nausea and vomiting over the past 1 to 2 days. She denies fever. She says she was evaluated for similar symptoms last week at [facility] emergency department, although I am not clear on what the result of any testing was at that time. Patient says "they ruled out endometriosis", and says that tests performed in the emergency department included "scopes" from above and below. She says there was not a CAT scan performed. This is a significantly different HPI compared to the RNs triage note. I discussed with the patient that the triage note indicates that she came in for feeling depressed and that she has been drinking alcohol heavily all day today. Patient tells me she does not feel depressed, that she went to work today and only started drinking after getting home from work this evening, and that the only reason she drank alcohol is "because of the abdominal pain".I asked her if she drinks on a heavy and/or regular basis, and she denies this. Review of Systems Cardiac: reports: Reviewed and negative Respiratory: reports: Reviewed and negative GI: reports: Abdominal Pain, Nausea, Vomiting. denies: Constipation, Diarrhea : denies: Dysuria, Frequency PD PAST MEDICAL HISTORY - Past Medical History Cardiovascular: None Respiratory: None Neuro: Other Endocrine/Autoimmune: None GI: None WEAVER HAND LOOM: Ovarian cysts, Miscarriage(s) : None HEENT: None Psych: Depression, Other Musculoskeletal: None Derm: None - Past Surgical History Past Surgical History: Yes /WEAVER HAND LOOM: Dilation and currettage - Present Medications Home Medications: Ambulatory Orders Medication Instructions Recorded Confirmed traZODone [Desyrel] 150 mg PO DAILY 03/18/19 06/06/19 Mirtazapine [Remeron] 30 mg PO DAILY 05/02/19 06/06/19 - Allergies Allergies/Adverse Reactions: Allergies Allergy/AdvReac Type Severity Reaction Status Date / Time metoclopramide [From Reglan] Allergy Nausea Verified 06/16/22 22:19 hydrocodone bitartrate * AdvReac Mild Hives Verified 06/16/22 22:19 [From Lortab] - Social History Does the pt smoke?: No Smoking Status: Never smoker Does the pt drink ETOH?: Yes Does the pt have substance abuse?: No - Immunizations Immunizations are current?: Yes - POLST Patient has POLST: No PD ED PE NORMAL - Vitals Vital signs reviewed: Yes - General General: 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, Well developed/nourished, Other (appears to be in intermittent discomfort during H+P; at times, she is smiling and in NAD, but episodically curls up in a ball on her side and closes her eyes and says "it hurts" pointing to abdomen) - HEENT HEENT: PERRL, EOMI, Moist mucous membranes - Cardiac Cardiac: RRR, No murmur - Respiratory Respiratory: No respiratory distress, Clear bilaterally - Abdomen Abdomen: Non distended, Other (limited abdominal exam: patient moves my hands out of the way at times, cries out in pain with any palpation of any part of abomen, even when my hand is just touching the abomen and not pushing/palpating) - Back Back: No CVA TTP - Extremities Extremities: No edema Results - Vitals Vitals: Vital Signs - 24 hr 06/16/22 06/16/22 06/17/22 22:07 22:17 00:54 Temperature 36.4 C L Heart Rate 92 98 83 Respiratory 17 18 Rate Blood Pressure 118/91 H 107/91 H O2 Saturation 99 99 100 06/17/22 01:29 Temperature Heart Rate 88 Respiratory 18 Rate Blood Pressure 98/60 O2 Saturation 100 Oxygen O2 Source Room air - Labs Labs: Microbiology 06/16/22 23:34 Urine Culture - Preliminary Urine,Clean Catch Laboratory Tests 06/16/22 06/16/22 06/16/22 23:20 23:28 23:28 WBC 6.0 RBC 4.14 L Hgb 10.8 L Hct 34.0 L MCV 82.1 MCH 26.1 L MCHC 31.8 L RDW 15.5 H Plt Count 301 MPV 9.5 Neut # (Auto) 3.5 Lymph # (Auto) 2.1 [place] # (Auto) 0.4 Eos # (Auto) 0.0 Baso # (Auto) 0.1 Absolute Nucleated RBC 0.00 Nucleated RBC % 0.0 Sodium 144 Potassium 4.0 Chloride 106 Carbon Dioxide 25 Anion Gap 13.0 BUN 7 Creatinine 0.7 Estimated GFR (MDRD) 96 Glucose 116 H Calcium 9.1 Total Bilirubin 0.6 AST 32 ALT 12 Alkaline Phosphatase 75 Total Protein 7.3 Albumin 4.2 Globulin 3.1 Albumin/Globulin Ratio 1.4 Lipase 56 H Urine Color Urine Clarity Urine pH Ur Specific [place] Urine Protein Urine Glucose (UA) Urine Ketones Urine Occult Blood Urine Nitrite Urine Bilirubin Urine Urobilinogen Ur Leukocyte Esterase Urine RBC Urine WBC Ur Squamous Epith Cells Urine Bacteria Urine Yeast Ur Microscopic Review Urine Culture Comments Urine HCG, Qual Urine Opiates Screen Ur Oxycodone Screen Urine Methadone Screen Ur Propoxyphene Screen Ur Barbiturates Screen Ur Tricyclics Screen Ur Phencyclidine Scrn Ur Amphetamine Screen U Methamphetamines Scrn U Benzodiazepines Scrn Urine Cocaine Screen U Cannabinoids Screen Ethyl Alcohol 334.2 06/16/22 06/16/22 23:34 23:34 WBC RBC Hgb Hct MCV MCH MCHC RDW Plt Count MPV Neut # (Auto) Lymph # (Auto) [place] # (Auto) Eos # (Auto) Baso # (Auto) Absolute Nucleated RBC Nucleated RBC % Sodium Potassium Chloride Carbon Dioxide Anion Gap BUN Creatinine Estimated GFR (MDRD) Glucose Calcium Total Bilirubin AST ALT Alkaline Phosphatase Total Protein Albumin Globulin Albumin/Globulin Ratio Lipase Urine Color YELLOW Urine Clarity HAZY Urine pH 7.0 Ur Specific [place] 1.015 Urine Protein 30 H Urine Glucose (UA) NEGATIVE Urine Ketones NEGATIVE Urine Occult Blood SMALL H Urine Nitrite POSITIVE H Urine Bilirubin NEGATIVE Urine Urobilinogen 2 H Ur Leukocyte Esterase LARGE H Urine RBC 6-10 H Urine WBC 11-25 H Ur Squamous Epith Cells FEW Squamous Urine Bacteria Many H Urine Yeast PRESENT Ur Microscopic Review INDICATED Urine Culture Comments INDICATED Urine HCG, Qual NEGATIVE Urine Opiates Screen NEGATIVE Ur Oxycodone Screen NEGATIVE Urine Methadone Screen NEGATIVE Ur Propoxyphene Screen NEGATIVE Ur Barbiturates Screen NEGATIVE Ur Tricyclics Screen NEGATIVE Ur Phencyclidine Scrn NEGATIVE Ur Amphetamine Screen NEGATIVE U Methamphetamines Scrn NEGATIVE U Benzodiazepines Scrn NEGATIVE Urine Cocaine Screen NEGATIVE U Cannabinoids Screen NEGATIVE Ethyl Alcohol - Rads (name of study) CT A/P with IV contrast Radiology: Prelim report reviewed, See rad report PD Medical Decision Making - ED course Complexity details: reviewed old records, reviewed results, re-evaluated patient, considered differential, d/w patient ED course: Tests ordered and results reviewed by me: CBC, ER abdominal panel, serum ethanol level, UA, urine hCG, urine drug screen, CT abdomen and pelvis with intravenous contrast. An IV is established and she is given 1 L normal saline IV bolus, 4 mg of Zofran IV, 30 mg of IV Toradol, 40 mg of IV Protonix, and 1 mg lorazepam IV. I requested records from [facility] ED (most recent visit), and these are faxed to me and reviewed by me. The ED visit is dated June 12, 2022, with chief complaint of 2 days of severe lower abdominal pain pelvic pain with nausea and vomiting. The record indicates that she received 3 doses of IV Zofran as well as 2 doses of IV Dilaudid (0.5 mg followed by 1 mg). I also note that she was given 40 mg of pantoprazole IV. The test performed on said visit reflect pancytopenia normal liver function tests (except for a minimally elevated AST with level of 45), negative serum test,. The MDM narrative prior to discharge indicates relatively unremarkable labs and that in discussion prior to discharge, "she does have a history of endometriosis and also ovarian cyst". The note also indicates that there was then a discussion of options for further work-up such as CT/ultrasound or else discharge home with symptom control return if worsen. The result of said discussion is that "the patient opted to hold on any further work up for now." She was prescribed Zofran and tramadol at discharge. Note that during patient's ER stay, there was significant [employer] downtime. Some of this patient's records are on the paper charts. CT of the abdomen/pelvis is no specific/diagnostic nor concerning abnormalities. A normal appendix is visualized. Radiologist notes "no definite acute disease identified although there is mild prominence of fluid within the small bowel to the degree that mild ileus may be present". During patient's ER stay, the patient complained that the Toradol, which initially had help with the pain, was no longer helping and her abdominal pain was worsening. I ordered IV Dilaudid 0.5 mg; however, I was then told by the ED RN for this patient that when he went to give it the patient was asleep, awaken briefly to voice, and fell rapidly back asleep. Thus, the order was rescinded and the Dilaudid not given. Patient then slept quietly for several hours. Patient has normal white count and platelet count on tonight's blood tests; she has mildly low hemoglobin (10.8). Her ER abdominal panel is normal except for 56 lipase, 116 glucose. Her urinalysis is highly suggestive of a UTI. Her serum ethanol level is 0.334. At approximately 6 AM, patient is now awake, alert, oriented x3. She answers quietly, and makes little eye contact. I reviewed the results of her tests with her. I asked her if she is having any UTI symptoms (dysuria, urinary frequency); she says she is not having the symptoms. However, her urinalysis is not strongly suggestive of a UTI, and thus I recommended Macrobid with a dose prior to discharge. Prescription for a 5-day course, and she is agreeable to this. She is comfortable with discharge and has no questions for me prior to discharge. Departure - Departure Disposition: 01 Home, Self Care Discharge Date/Time: 06/17/22 06:50
[2022-06-16 23:35] LABS: BASOPHILS # (AUTO) 0.1 10^3/uL (0.0-0.1); EOSINOPHILS % (AUTO) 0.3 %; HGB - HEMOGLOBIN 10.8 g/dL (12.0-16.0); LYMPHOCYTES # (AUTO) 2.1 10^3/uL (1.5-3.5); LYMPHOCYTES % (AUTO) 34.3 %; MEAN CORPUSCULAR HEMOGLOBIN 26.1 pg (27.0-31.0); MEAN CORPUSCULAR HGB CONC 31.8 g/dL (32.0-36.0); MEAN CORPUSCULAR VOLUME 82.1 fL (81.0-99.0); MEAN PLATELET VOLUME 9.5 fL (7.9-10.8); MONOCYTES # (AUTO) 0.4 10^3/uL (0.0-1.0); MONOCYTES % (AUTO) 6.3 %; NEUTROPHILS # (AUTO) 3.5 10^3/uL (1.5-6.6); NEUTROPHILS % (AUTO) 57.8 %; PLT - PLATELET COUNT 301 10^3/uL (130-450); RED BLOOD COUNT 4.14 10^6/uL (4.20-5.40); RED CELL DISTRIBUTION WIDTH 15.5 % (12.0-15.0)
[2022-06-16 23:46] LABS: MUDS CUTOFF CONCENTRATIONS CUTOFF CONC BELOW:
[2022-06-16 23:47] LABS: ALBUMIN 4.2 g/dL (3.2-5.5); ALBUMIN/GLOBULIN RATIO 1.4 (1.0-2.2); BILIRUBIN,TOTAL 0.6 mg/dL (0.2-1.0); CALCIUM 9.1 mg/dL (8.5-10.3); CREATININE 0.7 mg/dL (0.4-1.0); TOTAL PROTEIN 7.3 g/dL (6.7-8.2)
[2022-06-16 23:51] LABS: GLUCOSE, URINE (UA) NEGATIVE (NEGATIVE); KETONES,URINE (UA) NEGATIVE (NEGATIVE); LEUKOCYTE ESTERASE, URINE LARGE (NEGATIVE); NITRITE,URINE POSITIVE (NEGATIVE); OCCULT BLOOD,URINE SMALL (NEGATIVE); PROTEIN,URINE 30 mg/dL (NEGATIVE); UROBILINOGEN,URINE 2 E.U./dL (NORMAL)
[2022-06-17] LABS: BILIRUBIN,URINE NEGATIVE (NEGATIVE); CLARITY,URINE HAZY (CLEAR); ICTOTEST,URINE NEGATIVE
[2022-06-17 00:01] LABS: HCG UR QUAL NEGATIVE
[2022-06-17 00:04] LABS: AMPHETAMINE SCREEN,URINE NEGATIVE (NEGATIVE); BACTERIA,URINE Many /HPF (None Seen); BARBITURATE SCREEN,UR NEGATIVE (NEGATIVE); BENZODIAZEPINES SCREEN, URINE NEGATIVE (NEGATIVE); COCAINE SCREEN URINE NEGATIVE (NEGATIVE); METHADONE SCREEN, URINE NEGATIVE (NEGATIVE); METHAMPHETAMINES SCREEN, URINE NEGATIVE (NEGATIVE); OPIATE SCREEN, URINE NEGATIVE (NEGATIVE); OXYCODONE SCREEN, URINE NEGATIVE (NEGATIVE); PROPOXYPHENE SCREEN, URINE NEGATIVE (NEGATIVE); SQUAMOUS EPITHELIAL CELL,UR FEW Squamous (<= Few); THC CANNABINOID SCREEN, URINE NEGATIVE (NEGATIVE); TRICYCLIC ANTIDEPRESSANT,URINE NEGATIVE (NEGATIVE); YEAST,URINE PRESENT
[2022-06-17] MEDS ORDERED: PANTOPRAZOLE 40 MG VIAL IVP STA (00:04)
[2022-06-17] MEDS ORDERED: LORazepam 2 MG/ML VIAL IVP STA (00:04)
[2022-06-17] MEDS ORDERED: KETOROLAC 30 MG/ML VIAL IVP STA (00:05)
[2022-06-17] MEDS ORDERED: SODIUM CHLORIDE 0.9% 1,000 ML IV STA (00:05)
[2022-06-17] MEDS ORDERED: iohexoL-300 100 ML VIAL ONE (00:47)
[2022-06-17 01:30] VITALS: BP 98/60
[2022-06-17] MEDS ORDERED: HYDROmorphone 0.5 MG/0.5 ML SYRINGE ONE (02:00)
[2022-06-17] MEDS ORDERED: NITROFURANTOIN MACRO 100 MG CAPSULE PO ONE (06:40)
--- NOTE | 2022-06-17 07:14 | CT Report ---
PROCEDURE: ABDOMEN/PELVIS W INDICATIONS: diffuse abdominal pain CONTRAST: Nonionic and no oral contrast was utilized. TECHNIQUE: After the administration of nonionic contrast, 5 mm thick sections acquired from the diaphragms to th e symphysis. 5 mm thick coronal and sagittal reformats were acquired. For radiation dose reduction, the following was used: automated exposure control, adjustment of mA and/or kV according to patient size. COMPARISON: 09/18/2017 similar study.. FINDINGS: Image quality: Excellent. ABDOMEN: Lung bases: Lung bases are clear. Heart size is normal. Solid organs: Liver and spleen are normal in size and enhancement. Gallbladder appears normal Bili sara system is non dilated. Pancreas enhances normally. No adrenal nodules. Kidneys demonstrate nor mal size and enhancement, without hydronephrosis. Peritoneum and bowel: Bowel loops demonstrate normal wall thickness and caliber. There is mild prom inence of fluid within the small bowel but no intestinal obstruction or perforation is suspected. No free fluid or air. Nodes and vessels: No retroperitoneal or mesenteric adenopathy by size criteria. Aorta and inferior vena cava are normal in size. Miscellaneous: No ventral hernias. PELVIS: Genitourinary: Bladder wall thickness is normal. Miscellaneous: No inguinal hernias or adenopathy. A normal appendix is seen at the right lower quad rant. Bones: No suspicious bony lesions. No vertebral body compression fractures. IMPRESSION: Normal appendix found. No definite acute disease is identified although there is mild pr ominence of fluid within the small bowel to the degree that mild ileus may be present. Reviewed by: Ramses Woodall MD on 06/17/2022 2:01 AM PST Approved by: Ramses Woodall MD on 06/17/2022 2:01 AM PST Station ID: [id number]
[2022-06-17] MEDS ORDERED: iohexoL-300 100 ML VIAL IVP ONE (08:34)
== END 2022-06-17 06:50 | disposition home or self-care (01) ==
LOC: EDUNIT# → ED 22:04
DX: N39.0 Urinary tract infection, site not specified (principal); R10.84 Generalized abdominal pain; F10.129 Alcohol abuse with intoxication, unspecified; Y90.8 Blood alcohol level of 240 mg/100 ml or more
CPT/HCPCS: 36415; 74177; 80053; 80306; 80320; 81001; 81025; 83690; 85025; 87086; 87181; 96374; 96375; 99284; 99285; A9270; J2060; Q9967; 81003

== ENCOUNTER 2022-06-18 19:30 | Outpatient (CLI) | payer OTHER | END 2022-06-18 19:31 | disposition critical access hospital (66) | LOC: EMS 19:30 | DX: R41.82 Altered mental status, unspecified (principal); R10.9 Unspecified abdominal pain; Z72.89 Other problems related to lifestyle | CPT/HCPCS: A0425; A0429 ==

== ENCOUNTER 2022-06-18 19:47 | Emergency (ER) | payer OTHER ==
[2022-06-18] MEDS ORDERED: THIAMINE INJ 100 MG in SODIUM CHLORIDE 0.9% 50 ML IV STA (19:52)
[2022-06-18] MEDS ORDERED: SODIUM CHLORIDE 0.9% 1,000 ML IV STA (19:52)
--- NOTE | 2022-06-18 19:55 | ED Physician Documentation ---
PD HPI Fall - Stated complaint Stated Complaint: ABD PX/ETOH - History obtained from History obtained from: Patient, EMS - Additional information Additional information: 31-year-old woman with history of alcohol abuse. History is limited because of intoxication but she says she was sober for quite some time but then relapsed. This corroborates with review of the records, she was a frequent visitor for alcohol related complaints through late 2019 but subsequent to that was not here for a little over 2 years until just a couple of days ago when she presented and was seen by my partner with a blood alcohol level of 334. She comes in with a chief complaint of abdominal pain. When asked her where the abdominal pain was she motions to the lower abdomen. States she was also seen at [facility] 3 days ago and diagnosed with ovarian cysts but she is unclear if that was the cause of the pain per se. She admits to drinking heavily today. She also states she fell down the stairs earlier today and has some bruising over the lef t side of the face. Review of Dr. Puentes's note from the other night contains narrative of her visit to [facility] and although the patient says she had imaging during that stay, Dr. Puentes's note suggest that she did not. 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: Ovarian cysts, Miscarriage(s) : None HEENT: None Psych: Depression, Other Musculoskeletal: None Derm: None - Past Surgical History Past Surgical History: Yes /RESEARCH AND DEVELOPMENT DIRECTOR: Dilation and currettage - Present Medications Home Medications: Ambulatory Orders Medication Instructions Recorded Confirmed traZODone [Desyrel] 150 mg PO DAILY 03/18/19 06/06/19 Mirtazapine [Remeron] 30 mg PO DAILY 05/02/19 06/06/19 - Allergies Allergies/Adverse Reactions: Allergies Allergy/AdvReac Type Severity Reaction Status Date / Time metoclopramide [From Reglan] Allergy Nausea Verified 06/18/22 19:51 hydrocodone bitartrate * AdvReac Mild Hives Verified 06/18/22 19:51 [From Lortab] - Social History Does the pt smoke?: No Smoking Status: Never smoker Does the pt drink ETOH?: Yes Does the pt have substance abuse?: No - Immunizations Immunizations are current?: Yes - POLST Patient has POLST: No PD ED PE NORMAL - Vitals Vital signs reviewed: Yes - General General: 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, Other (She is intoxicated with slow slurred speech and she is grabby wanting to hold hands.) - HEENT HEENT: PERRL, EOMI, Other (Mild left periorbital bruising without facial bony tenderness) - Neck Neck: No bony TTP (But will CT given intoxication) - Cardiac Cardiac: RRR, No murmur - Respiratory Respiratory: No respiratory distress, Clear bilaterally - Abdomen Abdomen: Normal bowel sounds, Soft, Other (I am unable to elicit any abdominal tenderness at all.) - Back Back: No CVA TTP, No spinal TTP - Derm Derm: Normal color, Warm and dry - Extremities Extremities: No edema, No calf tenderness / cord - Neuro Neuro: 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, No motor deficit, No sensory deficit, Other (But with slow slurred speech) Eye Opening: Spontaneous Motor: Obeys Commands Verbal: Confused (Mildly) GCS Score: 14 Results - Vitals Vitals: Vital Signs - 24 hr 06/18/22 06/18/22 06/18/22 19:51 20:33 22:21 Temperature 37.4 C Heart Rate 85 92 70 Respiratory 18 18 18 Rate Blood Pressure 110/70 107/89 H 100/78 O2 Saturation 100 100 95 Oxygen O2 Source Room air - Labs Labs: Laboratory Tests 06/18/22 06/18/22 06/18/22 20:02 20:02 20:02 WBC 5.3 RBC 3.82 L Hgb 9.9 L Hct 31.3 L MCV 81.9 MCH 25.9 L MCHC 31.6 L RDW 15.5 H Plt Count 232 MPV 9.1 Neut # (Auto) 3.3 Lymph # (Auto) 1.7 [place] # (Auto) 0.3 Eos # (Auto) 0.0 Baso # (Auto) 0.0 Absolute Nucleated RBC 0.00 Nucleated RBC % 0.0 Sodium 144 Potassium 3.2 L Chloride 104 Carbon Dioxide 23 Anion Gap 17.0 H BUN 9 Creatinine 0.6 Estimated GFR (MDRD) 115 Glucose 97 Calcium 8.7 Magnesium 1.8 Total Bilirubin 0.5 AST 31 ALT 13 Alkaline Phosphatase 66 Total Protein 6.7 Albumin 3.9 Globulin 2.8 Albumin/Globulin Ratio 1.4 Lipase 68 H HCG, Quant < 0.60 Ethyl Alcohol 356.8 - Rads (name of study) CT of the head without contrast is unremarkable Radiology: Final report received, EMP read indepedently CT of the cervical spine is unremarkable Radiology: Final report received, EMP read indepedently CT abdomen and pelvis without contrast is unremarkable Radiology: Final report received, EMP read indepedently PD Medical Decision Making - ED course Complexity details: reviewed results (CBC showing chronic anemia, stable from prior. Chemistry panel showing mild hypokalemia and modest elevation of lipase. Serum beta hCG negative. Serum blood alcohol 356 consistent with severe alcohol intoxication.) ED course: 31-year-old woman brought in here. She had a fall down the stairs today with no obvious severe injuries but given her intoxication we are still concerned and will CT. She is intoxicated and would like to go to detox tomorrow. She will be signed out to the overnight emergency physician pending metabolization of her alcohol and social work consultation in the morning. Departure - Departure Clinical Impression: Abdominal pain in female patient Alcoholic gastritis Qualifiers: Chronicity: acute Gastritis bleeding: without bleeding Qualified Code(s): K29.20 - Alcoholic gastritis without bleeding Alcoholic intoxication Qualifiers: Complication of substance-induced condition: with delirium Qualified Code(s): F10.921 - Alcohol use, unspecified with intoxication delirium Injury of head and neck Qualifiers: Encounter type: initial encounter Qualified Code(s): S09.90XA - Unspecified injury of head, initial encounter
--- OUTSIDE RECORDS SUMMARY | 2022-06-18 19:57 | EXTERNAL MEDICAL SUMMARY RPT | Continuity of Care Document ---
:1990 Author Organization [facility] Address [address] [place] [address] Phone Care Team Providers Name Role Phone Tonia Schneider Unavailable Unavailable Allergies and Intolerances date description facility type (no date) hydrocodone [facility] (unknown) (no date) metoclopramide [facility] (unknown) Encounters No information. Functional Status No information. Immunizations No information. Medications date description facility 2022-06-12 00:00 Ondansetron [facility] 2022-06-12 00:00 Tramadol [facility] Problems date description facility 2022-06-12 00:00 Abdominal pain [facility] 2022-06-12 00:00 Nausea and vomiting [facility] Procedures No information. Results/Labs test date author [...] own) date) unknown) (unknown) (no (unknown) (unknown) [id number] (units (unkn own) date) unknown) (unknown) (no [...] (unknown) (unknown) : 1990 (units (unknown) date) Acct:[id number] unknown) (unknown) (no (unknown) (unknown) Date of [...] wn) date) unknown) (unknown) (no (unknown) (unknown) [facility] (units (unknown) date) [address] unknown) [place] [address] (unknown) (no (unknown) (unknown) Medical History (units [...] date) college unknown) (unknown) (no (unknown) (unknown) renee/mormon: (units (unknown) date) Sikh unknown) (unknown) (no (unknown) (unknown) household members: [...] (no (unknown) (unknown) prenat.vits,otis,mi (units (unknown) date) [id number] 1 tab unknown) PO DAILY 12/30/19 07/03/20 (unknown) (no (unknown) (unknown) prenat.vits,otis,mi (units (unknown) date) [id number]-aomr-xnowh Tablet unknown) (unknown) (no (unknown) (unknown) second [...] own) date) unknown) (unknown) (no (unknown) (unknown) [id number] (units (unkn own) date) unknown) (unknown) (no [...] (unknown) (unknown) : 1990 (units (unknown) date) Acct:[id number] unknown) (unknown) (no (unknown) (unknown) Date of [...] wn) date) unknown) (unknown) (no (unknown) (unknown) [facility] (units (unknown) date) [address] unknown) [place] [address] (unknown) (no (unknown) (unknown) MUSCULOSKELETAL: (units (unknown) [...] date) college unknown) (unknown) (no (unknown) (unknown) renee/mormon: (units (unknown) date) Sikh unknown) (unknown) (no (unknown) (unknown) household members: [...] (no (unknown) (unknown) prenat.vits,otis,mi (units (unknown) date) [id number]-kpyz-tdfit 1 tab unknown) PO DAILY 12/30/19 07/03/20 (unknown) (no (unknown) (unknown) prenat.vits,otis,mi (units (unknown) date) v-exwj-bdmqk Tablet unknown) (unknown) (no (unknown) (unknown) rales, [...] own) date) unknown) (unknown) (no (unknown) (unknown) [id number] (units (unkn own) date) unknown) (unknown) (no [...] (unknown) (unknown) : 1990 (units (unknown) date) Acct:[id number] unknown) (unknown) (no (unknown) (unknown) Date of [...] wn) date) unknown) (unknown) (no (unknown) (unknown) [facility] (units (unknown) date) [address] [place] [address] Street unknown) [place] [address] (unknown) (no (unknown) (unknown) Lab Data (units [...] date) college unknown) (unknown) (no (unknown) (unknown) renee/mormon: (units (unknown) date) Sikh unknown) (unknown) (no (unknown) (unknown) household members: [...] (no (unknown) (unknown) prenat.vits,otis,mi (units (unknown) date) p-ipef-ljpiq 1 tab unknown) PO DAILY 12/30/19 07/03/20 (unknown) (no (unknown) (unknown) prenat.vits,otis,mi (units (unknown) date) r-eune-npwlf Tablet unknown) (unknown) (no (unknown) (unknown) rales, [...] own) date) unknown) (unknown) (no (unknown) (unknown) [id number] (units (unkn own) date) unknown) (unknown) (no [...] (unknown) (unknown) : 1990 (units (unknown) date) Acct:[id number] unknown) (unknown) (no (unknown) (unknown) Date of [...] wn) date) unknown) (unknown) (no (unknown) (unknown) [facility] (units (unknown) date) [address] unknown) [place] [address] (unknown) (no (unknown) (unknown) Lab Data (units [...] # (Auto) (units (unknown) date) 1000 L ([id number]) unknown) /uL (unknown) (no (unknown) (unknown) Lymph [...] (unknown) date) unknown) (unknown) (no (unknown) (unknown) [place] # (Auto) 200 (units (unknown) date) (0-900) /uL unknown) (unknown) (no (unknown) (unknown) [place] % (Auto) 4.8 (units (unknown) date) (3-14) [...] Neut # (Auto) 2800 (units (unknown) date) (2362-1739) /uL unknown) (unknown) (no (unknown) (unknown) Neut [...] date) college unknown) (unknown) (no (unknown) (unknown) renee/mormon: (units (unknown) date) Sikh unknown) (unknown) (no (unknown) (unknown) household members: [...] (no (unknown) (unknown) prenat.vits,otis,mi (units (unknown) date) p-mhxc-rqgbz 1 tab unknown) PO DAILY 12/30/19 07/03/20 (unknown) (no (unknown) (unknown) prenat.vits,otis,mi (units (unknown) date) d-xfrn-ldlal Tablet unknown) (unknown) (no (unknown) (unknown) rales, [...] own) date) unknown) (unknown) (no (unknown) (unknown) [id number] (units (unkn own) date) unknown) (unknown) (no [...] (unknown) (unknown) : 1990 (units (unknown) date) Acct:[id number] unknown) (unknown) (no (unknown) (unknown) Date of [...] Abdominal unknown) Pain-Adult (unknown) (no (unknown) (unknown) [facility] (units (unknown) date) [address] [place] [address] unknown) [place] [address] (unknown) (no (unknown) (unknown) Lab Data (units [...] (unknown) Lymph # (Auto) (units (unknown) date) ([id number]) /uL unknown) (unknown) (no (unknown) (unknown) Lymph # (Auto) (units (unknown) date) 1000 L (1910-2258) unknown) /uL (unknown) (no (unknown) (unknown) Lymph [...] (unknown) date) unknown) (unknown) (no (unknown) (unknown) [place] # (Auto) (units ( unknown) date) (0-900) /uL unknown) (unknown) (no (unknown) (unknown) [place] # (Auto) 200 (units (unknown) date) (0-900) /uL unknown) (unknown) (no (unknown) (unknown) [place] % (Auto) (units ( unknown) date) (3-14) % unknown) (unknown) (no (unknown) (unknown) [place] % (Auto) 4.8 (units (unknown) date) (3-14) [...] Neut # (Auto) (units ( unknown) date) (7868-5647) /uL unknown) (unknown) (no (unknown) (unknown) Neut # (Auto) 2800 (units (unknown) date) (2138-3343) /uL unknown) (unknown) (no (unknown) (unknown) Neut [...] or worsening symptoms. (unknown) (no (unknown) (unknown) renee/mormon: (units (unknown) date) Sikh unknown) (unknown) (no (unknown) (unknown) fluid intake. [...] (no (unknown) (unknown) prenat.vits,otis,mi (units (unknown) date) n-abst-dnzbu 1 tab unknown) PO DAILY 12/30/19 07/03/20 (unknown) (no (unknown) (unknown) prenat.vits,otis,mi (units (unknown) date) h-gxhw-yfpwh Tablet unknown) (unknown) (no (unknown) (unknown) rales, [...] own) date) unknown) (unknown) (no (unknown) (unknown) [id number] (units (unkn own) date) unknown) (unknown) (no [...] (unknown) (unknown) : 1990 (units (unknown) date) Acct:[id number] unknown) (unknown) (no (unknown) (unknown) Date of [...] Abdominal unknown) Pain-Adult (unknown) (no (unknown) (unknown) [facility] (units (unknown) date) [address] unknown) [place] [address] (unknown) (no (unknown) (unknown) Lab Data (units [...] (unknown) Lymph # (Auto) (units (unknown) date) (7689-6082) /uL unknown) (unknown) (no (unknown) (unknown) Lymph # (Auto) (units (unknown) date) 1000 L (9810-7124) unknown) /uL (unknown) (no (unknown) (unknown) Lymph [...] (unknown) date) unknown) (unknown) (no (unknown) (unknown) [place] # (Auto) (units ( unknown) date) (0-900) /uL unknown) (unknown) (no (unknown) (unknown) [place] # (Auto) 200 (units (unknown) date) (0-900) /uL unknown) (unknown) (no (unknown) (unknown) [place] % (Auto) (units ( unknown) date) (3-14) % unknown) (unknown) (no (unknown) (unknown) [place] % (Auto) 4.8 (units (unknown) date) (3-14) [...] Neut # (Auto) (units ( unknown) date) (0715-2914) /uL unknown) (unknown) (no (unknown) (unknown) Neut # (Auto) 2800 (units (unknown) date) (2691-5880) /uL unknown) (unknown) (no (unknown) (unknown) Neut [...] or worsening symptoms. (unknown) (no (unknown) (unknown) renee/mormon: (units (unknown) date) Sikh unknown) (unknown) (no (unknown) (unknown) fluid intake. [...] (no (unknown) (unknown) prenat.vits,otis,mi (units (unknown) date) o-dwxo-zvomn 1 tab unknown) PO DAILY 12/30/19 07/03/20 (unknown) (no (unknown) (unknown) prenat.vits,otis,mi (units (unknown) date) b-rxib-kiosw Tablet unknown) (unknown) (no (unknown) (unknown) rales, [...] date description facility 2022-06-12 00:00 Ex-smoker (finding) [facility] Vital Signs date measurement value units 2022-06-12 [...]
[2022-06-18 20:08] LABS: BASOPHILS % (AUTO) 0.7 %; EOSINOPHILS % (AUTO) 0.2 %; HCT - HEMATOCRIT 31.3 % (37.0-47.0); HGB - HEMOGLOBIN 9.9 g/dL (12.0-16.0); LYMPHOCYTES # (AUTO) 1.7 10^3/uL (1.5-3.5); LYMPHOCYTES % (AUTO) 31.6 %; MEAN CORPUSCULAR HEMOGLOBIN 25.9 pg (27.0-31.0); MEAN CORPUSCULAR HGB CONC 31.6 g/dL (32.0-36.0); MEAN CORPUSCULAR VOLUME 81.9 fL (81.0-99.0); MEAN PLATELET VOLUME 9.1 fL (7.9-10.8); MONOCYTES # (AUTO) 0.3 10^3/uL (0.0-1.0); MONOCYTES % (AUTO) 4.9 %; NEUTROPHILS # (AUTO) 3.3 10^3/uL (1.5-6.6); NEUTROPHILS % (AUTO) 62.2 %; PLT - PLATELET COUNT 232 10^3/uL (130-450); RED BLOOD COUNT 3.82 10^6/uL (4.20-5.40); RED CELL DISTRIBUTION WIDTH 15.5 % (12.0-15.0); WHITE BLOOD COUNT 5.3 x10^3/uL (4.8-10.8)
[2022-06-18 20:32] LABS: ALBUMIN 3.9 g/dL (3.2-5.5); ALBUMIN/GLOBULIN RATIO 1.4 (1.0-2.2); BILIRUBIN,TOTAL 0.5 mg/dL (0.2-1.0); CALCIUM 8.7 mg/dL (8.5-10.3); CREATININE 0.6 mg/dL (0.4-1.0); ETOH - ETHANOL 356.8 mg/dL; MAGNESIUM 1.8 mg/dL (1.7-2.8); POTASSIUM 3.2 mmol/L (3.5-5.0); TOTAL PROTEIN 6.7 g/dL (6.7-8.2)
[2022-06-18] MEDS ORDERED: THIAMINE 100 MG/1 ML 2 ML MDV ONE (20:34)
[2022-06-18] MEDS ORDERED: KETOROLAC 15 MG/ML VIAL IVP STA (20:41)
[2022-06-18] MEDS ORDERED: PROMETHAZINE INJ 25 MG in SODIUM CHLORIDE 0.9% 50 ML IV STA (21:17)
[2022-06-18] MEDS ORDERED: PROMETHAZINE 25 MG/1 ML VIAL ONE (22:00)
--- NOTE | 2022-06-18 22:25 | CT Report ---
PROCEDURE: HEAD WO INDICATIONS: poss head inj, etoh TECHNIQUE: Noncontrast 4.5 mm thick angled axial sections acquired from the foramen magnum to the vertex. For r adiation dose reduction, the following was used: automated exposure control, adjustment of mA and/or kV according to patient size. COMPARISON: None. FINDINGS: Image quality: Evaluation is limited by motion artifact. CSF spaces: Basal cisterns are patent. No extra-axial fluid collections. Ventricles are normal in size and shape. Brain: No definite intracranial hemorrhage, mass, or mass effect. Zhang-white matter interface appea rs preserved. Skull and face: Calvarium and visualized facial bones are intact, without suspicious lesions. Sinuses: Visualized sinuses and mastoids are clear. IMPRESSION: 1. Limited study due to motion artifact demonstrates no definite acute intracranial abnormality. Reviewed by: Juan Miguel Troy MD on 06/18/2022 10:24 PM [facility] Approved by: Juan Miguel Troy MD on 06/18/2022 10:24 PM [facility] Station ID: [id number]
--- NOTE | 2022-06-18 22:31 | CT Report ---
PROCEDURE: CERVICAL SPINE WO INDICATIONS: poss head inj, etoh TECHNIQUE: Noncontrast 3 mm thick sections acquired from the skull base to the T4 level. Sagittal and coronal r eformats were then constructed. For radiation dose reduction, the following was used: automated exp osure control, adjustment of mA and/or kV according to patient size. COMPARISON: None. FINDINGS: Image quality: There is metallic streak artifact from patient's dental hardware as well as beam harde leny artifact in the thorax. Bones: No fractures or subluxation. There is straightening of the cervical lordosis. Visualized supe rior ribs are intact. Soft tissues: Prevertebral soft tissues are normal in thickness. No paravertebral hematomas. No ap ical pneumothoraces. IMPRESSION: 1. No fracture or subluxation. Reviewed by: Juan Miguel Troy MD on 06/18/2022 10:[address] [facility] Approved by: Juan Miguel Troy MD on 06/18/2022 10:[address] [facility] Station ID: [id number]
--- NOTE | 2022-06-18 22:56 | CT Report ---
PROCEDURE: ABDOMEN/PELVIS WO INDICATIONS: abd pain TECHNIQUE: Noncontrast 5 mm thick sections acquired from the diaphragms to the symphysis. 5 mm coronal and sagi ttal reformats were then performed. For radiation dose reduction, the following was used: automated exposure control, adjustment of mA and/or kV according to patient size. COMPARISON: CT abdomen pelvis 06/17/2022. FINDINGS: Image quality: Evaluation limited by motion artifact. Lung bases:There is minimal dependent atelectasis. Heart: Heart is normal in size. ABDOMEN: Liver:There is diffuse hypoattenuation of the liver consistent with fatty infiltration. Gallbladder: Within normal limits without calcified gallstones. Biliary ducts: No biliary ductal dilatation. Pancreas: Unremarkable. Spleen: Normal in size. Adrenal Glands: No adrenal nodules. Kidneys and Ureters: No hydronephrosis. There is a nonobstructing right renal stone measuring up to 0.2 cm. Stomach and Bowel: Stomach, small bowel loops, and colon are normal in caliber and wall thickness. T he appendix is normal in appearance. Peritoneum: No abnormal intraperitoneal fluid. No free air. Ventral Wall: No hernia. Abdominal Nodes: No retroperitoneal or mesenteric adenopathy by size criteria. Vessels: Aorta and inferior vena cava are normal in size. PELVIS: Pelvic Organs: Unremarkable. Bladder: Unremarkable. Pelvic Nodes: No enlarged lymph nodes. Miscellaneous: No inguinal hernias. Bones: Visualized osseous structures demonstrate no suspicious lesions. IMPRESSION: 1. Limited evaluation due to motion artifact and absence of intravenous contrast demonstrates no defi nite acute intra-abdominal abnormality. Specifically, no evidence of appendicitis. 2. Hepatic steatosis. Reviewed by: Juan Miguel Castañeda MD on 06/18/2022 10:55 PM PST Approved by: Juan Miguel Castañeda MD on 06/18/2022 10:55 PM PST Station ID: [id number]
[2022-06-18] MEDS ORDERED: ONDANSETRON ODT 4 MG TABLET TL STA (23:16)
[2022-06-18] MEDS ORDERED: PANTOPRAZOLE 40 MG TABLET PO STA (23:52)
[2022-06-18] MEDS ORDERED: PANTOPRAZOLE 40 MG VIAL IVP STA (23:56)
[2022-06-19] MEDS ORDERED: ACETAMINOPHEN 325 MG TABLET PO STA ×2 (00:35→12:10)
--- NOTE | 2022-06-19 00:40 | ED Physician Documentation ---
ED Addendum - Addendum Addendum: 06/19/22 00:38 Patient endorsed to me by Dr. Sahu. Patient is status post fall down stairs with negative trauma workup in the ED. Complaining of chronic bilateral lower quadrant pain she attributes to ovarian cyst. Tylenol provided. Plan to dc pending sobriety and possible social work evaluation in the morning 06/19/22 06:28 Patient required two doses of librium overnight for clinical signs of withdrawal. Plan to endorse to Dr. Guerra at 7am shift change pending SW evaluation.
[2022-06-19] MEDS ORDERED: chlordiazePOXIDE 25 MG CAPSULE PO STA ×3 (01:46→08:10)
[2022-06-19] MEDS ORDERED: QUEtiapine 100 MG TABLET PO STA (01:46)
[2022-06-19] MEDS ORDERED: LORazepam 1 MG TABLET PO STA (12:10)
[2022-06-19 12:33] LABS: MUDS CUTOFF CONCENTRATIONS CUTOFF CONC BELOW:
[2022-06-19 12:38] LABS: GLUCOSE, URINE (UA) NEGATIVE (NEGATIVE); KETONES,URINE (UA) NEGATIVE (NEGATIVE); LEUKOCYTE ESTERASE, URINE NEGATIVE (NEGATIVE); NITRITE,URINE NEGATIVE (NEGATIVE); OCCULT BLOOD,URINE NEGATIVE (NEGATIVE); PROTEIN,URINE TRACE mg/dL (NEGATIVE); UROBILINOGEN,URINE 1 (NORMAL) E.U./dL (NORMAL)
--- NOTE | 2022-06-19 12:42 | ED Physician Documentation ---
ED Addendum - Addendum Addendum: Patient received in signout from overnight physician. The patient has been seen by social work and reports that her alcohol intake was a suicide attempt. She is voluntary for placement. Her urine test from a few days ago shows E. coli. Patient reports having mild dysuria. She never picked up the prescription for the antibiotic she was prescribed. We will schedule Macrobid. Pt signed out at shift change. Departure - Departure Disposition: [facility]Unit DC/Xfer Clinical Impression: Abdominal pain in female patient, UTI (urinary tract infection) Alcoholic gastritis Qualifiers: Chronicity: acute Gastritis bleeding: without bleeding Qualified Code(s): K29.20 - Alcoholic gastritis without bleeding Alcoholic intoxication Qualifiers: Complication of substance-induced condition: with delirium Qualified Code(s): F10.921 - Alcohol use, unspecified with intoxication delirium Injury of head and neck Qualifiers: Encounter type: initial encounter Qualified Code(s): S09.90XA - Unspecified injury of head, initial encounter
[2022-06-19 12:50] LABS: CLARITY,URINE CLEAR (CLEAR)
[2022-06-19 12:52] LABS: BILIRUBIN,URINE NEGATIVE (NEGATIVE); HCG UR QUAL NEGATIVE; ICTOTEST,URINE NEGATIVE
[2022-06-19 12:53] LABS: AMPHETAMINE SCREEN,URINE NEGATIVE (NEGATIVE); BARBITURATE SCREEN,UR NEGATIVE (NEGATIVE); BENZODIAZEPINES SCREEN, URINE POSITIVE (NEGATIVE); COCAINE SCREEN URINE NEGATIVE (NEGATIVE); METHADONE SCREEN, URINE NEGATIVE (NEGATIVE); METHAMPHETAMINES SCREEN, URINE NEGATIVE (NEGATIVE); OPIATE SCREEN, URINE NEGATIVE (NEGATIVE); OXYCODONE SCREEN, URINE NEGATIVE (NEGATIVE); PROPOXYPHENE SCREEN, URINE NEGATIVE (NEGATIVE); THC CANNABINOID SCREEN, URINE NEGATIVE (NEGATIVE); TRICYCLIC ANTIDEPRESSANT,URINE POSITIVE (NEGATIVE)
[2022-06-19] MEDS: NITROFURANTOIN MACRO 100 MG CAPSULE PO SCH ×2 (12:57→20:04)
[2022-06-19] MEDS ORDERED: VENLAFAXINE 37.5 MG TABLET PO STA (13:08)
[2022-06-19] MEDS ORDERED: ONDANSETRON ODT 4 MG TABLET TL STA (13:09)
[2022-06-19] MEDS ORDERED: traMADol 50 MG TABLET PO STA (13:09)
[2022-06-19] MEDS ORDERED: LORazepam 1 MG TABLET PO PRN (17:55)
--- NOTE | 2022-06-19 18:42 | ED Physician Documentation ---
ED Addendum - Addendum Addendum: 06/19/22 18:42 Patient accepted to [facility]. COBRA forms completed. Patient is stable for transfer. Will need Macrobid 100 mg p.o. twice daily x5 days for her UTI. Departure - Departure Disposition: [facility]Unit DC/Xfer Clinical Impression: Abdominal pain in female patient Alcoholic gastritis Qualifiers: Chronicity: acute Gastritis bleeding: without bleeding Qualified Code(s): K29.20 - Alcoholic gastritis without bleeding Alcoholic intoxication Qualifiers: Complication of substance-induced condition: with delirium Qualified Code(s): F10.921 - Alcohol use, unspecified with intoxication delirium Injury of head and neck Qualifiers: Encounter type: initial encounter Qualified Code(s): S09.90XA - Unspecified injury of head, initial encounter; S19.9XXA - Unspecified injury of neck, initial encounter UTI (urinary tract infection) Qualifiers: Urinary tract infection type: acute cystitis Hematuria presence: without hematuria Qualified Code(s): N30.00 - Acute cystitis without hematuria Condition: Stable
[2022-06-19 20:11] VITALS: BP 109/83
[2022-06-19] MEDS ORDERED: QUEtiapine 100 MG TABLET PO SCH (21:00)
== END 2022-06-19 20:59 ==
LOC: EDUNIT# → ED 19:47
DX: S09.90XA Unspecified injury of head, initial encounter (principal); W10.9XXA Fall (on) (from) unspecified stairs and steps, initial encounter; K29.20 Alcoholic gastritis without bleeding; F10.921 Alcohol use, unspecified with intoxication delirium; Y90.8 Blood alcohol level of 240 mg/100 ml or more; Z20.822 Contact with and (suspected) exposure to COVID-19; N39.0 Urinary tract infection, site not specified; B96.20 Unspecified Escherichia coli [E. coli] as the cause of diseases classified elsewhere
CPT/HCPCS: 36415; 70450; 72125; 74176; 80053; 80306; 80320; 81003; 81025; 83690; 83735; 84702; 85025; 87635; 96365; 96367; 96375; 99284; 99285; A9270; J3411; J7040; J8499; Q0162; 81001; 87086

== ENCOUNTER → 2022-07-12 | Outpatient (CLI) | payer OTHER | END | disposition short-term general hospital (02) | LOC: EMS 15:36 | DX: R45.89 Other symptoms and signs involving emotional state (principal); Z72.89 Other problems related to lifestyle | CPT/HCPCS: A0425; A0429 ==

== ENCOUNTER 2022-08-01 04:37 | Outpatient (CLI) | payer OTHER | END 2022-08-01 04:38 | disposition short-term general hospital (02) | LOC: EMS 04:37 | DX: R44.1 Visual hallucinations (principal); R41.82 Altered mental status, unspecified; R46.89 Other symptoms and signs involving appearance and behavior | CPT/HCPCS: A0425; A0429; A0999 ==

== ENCOUNTER 2022-08-17 20:15 | Outpatient (CLI) | payer OTHER | END 2022-08-17 23:59 | disposition critical access hospital (66) | LOC: EMS 20:15 | DX: F10.129 Alcohol abuse with intoxication, unspecified (principal); F32.A Depression, unspecified | CPT/HCPCS: A0425; A0429 ==

== ENCOUNTER 2022-08-17 20:45 | Emergency (ER) | payer OTHER ==
[2022-08-17 21:41] LABS: MUDS CUTOFF CONCENTRATIONS CUTOFF CONC BELOW:
[2022-08-17 21:44] LABS: BILIRUBIN,URINE NEGATIVE (NEGATIVE); GLUCOSE, URINE (UA) NEGATIVE (NEGATIVE); KETONES,URINE (UA) NEGATIVE (NEGATIVE); LEUKOCYTE ESTERASE, URINE SMALL (NEGATIVE); NITRITE,URINE NEGATIVE (NEGATIVE); OCCULT BLOOD,URINE SMALL (NEGATIVE); PH,URINE 6.5 PH (5.0-7.5); PROTEIN,URINE TRACE mg/dL (NEGATIVE); UROBILINOGEN,URINE 0.2 (NORMAL) E.U./dL (NORMAL)
[2022-08-17 21:47] LABS: CLARITY,URINE HAZY (CLEAR); HCG UR QUAL NEGATIVE
[2022-08-17 21:56] LABS: AMPHETAMINE SCREEN,URINE NEGATIVE (NEGATIVE); BACTERIA,URINE Moderate /HPF (None Seen); BENZODIAZEPINES SCREEN, URINE POSITIVE (NEGATIVE); COCAINE SCREEN URINE NEGATIVE (NEGATIVE); METHADONE SCREEN, URINE NEGATIVE (NEGATIVE); METHAMPHETAMINES SCREEN, URINE NEGATIVE (NEGATIVE); MUCUS,URINE Few Strands; OPIATE SCREEN, URINE NEGATIVE (NEGATIVE); SQUAMOUS EPITHELIAL CELL,UR MANY Squamous (<= Few); THC CANNABINOID SCREEN, URINE NEGATIVE (NEGATIVE); TRICYCLIC ANTIDEPRESSANT,URINE NEGATIVE (NEGATIVE)
[2022-08-17 21:57] LABS: BARBITURATE SCREEN,UR POSITIVE (NEGATIVE); OXYCODONE SCREEN, URINE NEGATIVE (NEGATIVE); PROPOXYPHENE SCREEN, URINE NEGATIVE (NEGATIVE)
[2022-08-17 22:01] LABS: ACETAMINOPHEN < 10 ug/mL (10-30); ALBUMIN 4.2 g/dL (3.2-5.5); ALBUMIN/GLOBULIN RATIO 1.3 (1.0-2.2); ALKALINE PHOSPHATASE 59 IU/L (42-121); ALT ALANINE AMINOTRANSFERASE 28 IU/L (10-60); AST ASPARTATE AMINOTRANSFERASE 82 IU/L (10-42); BILIRUBIN,TOTAL 0.4 mg/dL (0.2-1.0); BUN - BLOOD UREA NITROGEN < 5 mg/dL (6-20); CALCIUM 8.2 mg/dL (8.5-10.3); CARBON DIOXIDE - CO2 26 mmol/L (21-32); CHLORIDE 112 mmol/L (101-111); CREATININE 0.7 mg/dL (0.4-1.0); ETOH - ETHANOL 435.8 mg/dL; GFR - MDRD 96 (>89); GLUCOSE 96 mg/dL (70-100); LIPASE 77 U/L (22-51); POTASSIUM 3.9 mmol/L (3.5-5.0); SALICYLATE < 6.0 mg/dL; SODIUM 147 mmol/L (135-145); TOTAL PROTEIN 7.4 g/dL (6.7-8.2)
[2022-08-17 22:07] LABS: BASOPHILS # (AUTO) 0.1 10^3/uL (0.0-0.1); BASOPHILS % (AUTO) 1.2 %; EOSINOPHILS # (AUTO) 0.1 10^3/uL (0.0-0.7); EOSINOPHILS % (AUTO) 0.9 %; HCT - HEMATOCRIT 37.6 % (37.0-47.0); HGB - HEMOGLOBIN 11.6 g/dL (12.0-16.0); LYMPHOCYTES # (AUTO) 2.5 10^3/uL (1.5-3.5); LYMPHOCYTES % (AUTO) 43.9 %; MEAN CORPUSCULAR HEMOGLOBIN 26.1 pg (27.0-31.0); MEAN CORPUSCULAR HGB CONC 30.9 g/dL (32.0-36.0); MEAN CORPUSCULAR VOLUME 84.5 fL (81.0-99.0); MONOCYTES # (AUTO) 0.2 10^3/uL (0.0-1.0); MONOCYTES % (AUTO) 3.8 %; NEUTROPHILS # (AUTO) 2.9 10^3/uL (1.5-6.6); NEUTROPHILS % (AUTO) 49.7 %; PLT - PLATELET COUNT 307 10^3/uL (130-450); RED BLOOD COUNT 4.45 10^6/uL (4.20-5.40); RED CELL DISTRIBUTION WIDTH 17.5 % (12.0-15.0); WHITE BLOOD COUNT 5.7 x10^3/uL (4.8-10.8)
--- OUTSIDE RECORDS SUMMARY | 2022-08-18 00:28 | EXTERNAL MEDICAL SUMMARY RPT | Continuity of Care Document ---
:1990 Author Organization [place] Address [address] [place] [address] Phone Care Team Providers Name Role Phone Unavailable Unavailable Unavailable Tonia Schneider Unavailable Unavailable Allergies and Intolerances date description facility type (no date) Mild [facility] (unknown) (no date) hydrocodone [facility] (unknown) (no date) metoclopramide [facility] (unknown) Encounters No information. Functional Status No information. Immunizations No information. Medications date description facility 2022-06-12 00:00 Ondansetron [facility] 2022-08-03 00:00 Disulfiram [facility] 2022-07-13 00:00 Fluoxetine [facility] 2022-07-13 00:00 Quetiapine [facility] 2022-07-14 00:00 Thiamine Mononitrate (Vit B1) [facility] 2022-07-14 00:00 Pantoprazole [facility] 2022-06-12 00:00 Tramadol [facility] 2022-08-03 00:00 Chlordiazepoxide H[facility] 2022-07-13 00:00 Hydroxyzine Hcl [facility] Problems date description facility 2022-06-12 00:00 Abdominal pain [facility] 2022-06-12 00:00 Nausea and vomiting [facility] 2022-07-12 00:00 Acute cystitis [facility] 2022-07-13 00:00 Alcohol withdrawal delirium, acute, hyp eractive [facility] 2022-07-13 00:00 Alcohol withdrawal syndrome [facility] 2022-07-13 09:45 Alcohol dependence with withdrawal, uns [facility] 2022-07-13 10:00 Alcohol dependence with withdrawal, [facility] 2022-07-13 10:48 Alcohol dependence with withdrawal, [facility] 2022-07-13 14:40 Alcohol dependence with withdrawal, [facility] 2022-07-13 14:40 Alcohol use, unspecified, uncomplicated [facility] 2022-07-13 14:40 Alcohol use, unspecified with withdrawa l [facility] delirium 2022-07-13 14:40 Acute cystitis without hematuria [facility] 2022-07-14 11:49 Alcohol dependence with withdrawal, [facility] 2022-07-14 11:49 Alcohol use, unspecified, [facility] 2022-07-14 11:49 Alcohol use, unspecified with [facility] delirium 2022-07-14 11:49 Acute cystitis without hematuria [facility] 2022-07-14 12:38 Alcohol dependence with withdrawal, [facility] 2022-07-14 12:38 Alcohol use, unspecified, [facility] 2022-07-14 12:38 Alcohol use, unspecified with [facility] delirium 2022-07-14 12:38 Acute cystitis without hematuria [facility] 2022-07-14 13:42 Alcohol dependence with withdrawal, [facility] 2022-07-14 13:42 Alcohol use, unspecified, [facility] 2022-07-14 13:42 Alcohol use, unspecified with [facility] delirium 2022-07-14 13:42 Acute cystitis without hematuria [facility] 2022-07-16 08:08 Alcohol dependence with withdrawal, [facility] 2022-07-16 08:08 Alcohol use, unspecified, [facility] 2022-07-16 08:08 Alcohol use, unspecified with [facility] delirium 2022-07-16 08:08 Acute cystitis without hematuria [facility] 2022-07-17 08:54 Alcohol dependence with withdrawal, [facility] 2022-07-17 08:54 Alcohol use, unspecified, [facility] 2022-07-17 08:54 Alcohol use, unspecified with [facility] delirium 2022-07-17 08:54 Acute cystitis without hematuria [facility] 2022-07-17 14:05 Alcohol dependence with withdrawal, [facility] 2022-07-17 14:05 Alcohol use, unspecified, [facility] 2022-07-17 14:05 Alcohol use, unspecified with [facility] delirium 2022-07-17 14:05 Acute cystitis without hematuria [facility] 2022-07-31 00:00 Alcohol withdrawal syndrome [facility] 2022-08-01 11:40 Alcohol dependence with withdrawal, [facility] 2022-08-01 11:41 Alcohol dependence with withdrawal, [facility] 2022-08-01 11:42 Alcohol dependence with withdrawal, [facility] 2022-08-01 11:44 Alcohol dependence with withdrawal, [facility] 2022-08-01 11:45 Alcohol dependence with withdrawal, [facility] 2022-08-01 11:51 Alcohol dependence with withdrawal, [facility] 2022-08-01 11:55 Alcohol dependence with withdrawal, [facility] 2022-08-01 11:56 Alcohol dependence with withdrawal, [facility] 2022-08-01 11:57 Alcohol dependence with withdrawal, [facility] 2022-08-01 12:11 Alcohol dependence with withdrawal, [facility] 2022-08-01 13:18 Alcohol dependence with withdrawal, [facility] 2022-08-02 08:59 Alcohol dependence with withdrawal, [facility] 2022-08-03 08:39 Alcohol dependence with withdrawal, [facility] 2022-08-03 08:39 Alcohol use, unspecified with withdrawa l [facility] 2022-08-03 08:39 [facility], [facility]:23 Alcohol dependence with withdrawal, [facility] 2022-08-03 14:23 Alcohol use, unspecified with withdrawa l [facility]ium 2022-08-03 14:23 [facility], [facility] 14:26 Alcohol dependence with withdrawal, [facility] 2022-08-03 14:26 Alcohol use, unspecified with withdrawa l [facility]ium 2022-08-03 14:26 [facility], [facility] 14:43 Alcohol dependence with withdrawal, [facility] 2022-08-03 14:43 Alcohol use, unspecified with withdrawa l [facility] delirium 2022-08-03 14:43 [facility], [facility] 2022-08-06 13:58 Alcohol dependence with withdrawal, [facility] 2022-08-06 13:58 Alcohol use, unspecified with withdrawa l [facility] delirium 2022-08-06 13:58 [facility], [facility]-08 00:00 Alcoholic intoxication [facility] 2022-08-08 00:00 Alcohol withdrawal syndrome [facility] 2022-08-09 00:00 Abnormal urinalysis [facility] 2022-08-09 09:10 Alcohol dependence with withdrawal, [facility] 2022-08-09 09:10 Alcohol use, unspecified with intoxicat ion, [facility] unspecified 2022-08-09 09:10 Alcohol use, unspecified with withdrawa l [facility] delirium 2022-08-09 09:10 [facility], [facility] 09:10 Unspecified abnormal findings in urine [facility] 2022-08-09 09:29 Alcohol dependence with withdrawal, [facility] 2022-08-09 09:29 Alcohol use, unspecified with intoxicat ion, [facility] 09:29 Alcohol use, unspecified with withdrawa l [facility] delirium 2022-08-09 09:29 [facility], [facility] 09:29 Unspecified abnormal findings in urine [facility] 2022-08-09 11:05 Alcohol dependence with withdrawal, [facility] 2022-08-09 11:05 Alcohol use, unspecified with intoxicat ion, [facility] unspecified 2022-08-09 11:05 Alcohol use, unspecified with withdrawa l [facility] delirium 2022-08-09 11:05 [facility] 11:05 Unspecified abnormal findings in urine [facility] 2022-08-09 11:22 Alcohol dependence with withdrawal, [facility] 2022-08-09 11:22 Alcohol use, unspecified with intoxicat ion, [facility] 11:22 Alcohol use, unspecified with withdrawa l [facility] delirium 2022-08-09 11:22 [facility], [facility] 11:22 Unspecified abnormal findings in urine [facility] 2022-08-09 12:33 Alcohol dependence with withdrawal, [facility] 2022-08-09 12:33 Alcohol use, unspecified with intoxicat ion, [facility] unspecified 2022-08-09 12:33 Alcohol use, unspecified with withdrawa l [facility] delirium 2022-08-09 12:33 Alcohol use, unspecified with withdrawa l, [facility] unspecified 2022-08-09 12:33 Unspecified abnormal findings in urine [facility] 2022-08-09 17:39 Alcohol dependence with withdrawal, [facility] 2022-08-09 17:39 Alcohol use, unspecified with intoxicat ion, [facility] unspecified 2022-08-09 17:39 Alcohol use, unspecified with withdrawa l [facility] delirium 2022-08-09 17:39 Alcohol use, unspecified with withdrawa l, [facility] unspecified 2022-08-09 17:39 Unspecified abnormal findings in [facility] 2022-08-09 18:05 Alcohol dependence with withdrawal, [facility] 2022-08-09 18:05 Alcohol use, unspecified with intoxicat ion, [facility] unspecified 2022-08-09 18:05 Alcohol use, unspecified with withdrawa l [facility] delirium 2022-08-09 18:05 Alcohol use, unspecified with withdrawa l, [facility] unspecified 2022-08-09 18:05 Unspecified abnormal findings in [facility] 2022-08-10 08:05 Alcohol dependence with withdrawal, [facility] 2022-08-10 08:05 Alcohol use, unspecified with intoxicat ion, [facility] unspecified 2022-08-10 08:05 Alcohol use, unspecified with withdrawa l [facility] delirium 2022-08-10 08:05 Alcohol use, unspecified with withdrawa l, [facility] unspecified 2022-08-10 08:05 Unspecified abnormal findings in urine [facility] 2022-08-15 12:47 Alcohol dependence with withdrawal, [facility] 2022-08-15 12:47 Alcohol use, unspecified with intoxicat ion, [facility] unspecified 2022-08-15 12:47 Alcohol use, unspecified with withdrawa l [facility] delirium 2022-08-15 12:47 Alcohol use, unspecified with withdrawa l, [facility] unspecified 2022-08-15 12:47 Unspecified abnormal findings in [facility] Procedures date description facility 2022-07-13 00:00 Insertion of Infusion Device into Left Basilic [facility], Percutaneous Approach 2022-08-01 00:00 Computed tomography of head or brain wi [facility] contrast Results/Labs test date author facility value unit [...] [facility] unknown) Result panel 94 (unknown) (no date[facility]) Result panel 95 (unknown) (no date) (unknown[facility]) Result panel 96 (unknown) (no date) (unknown[facility]) Result panel 97 (unknown) (no date) (unknown[facility]) Result panel 98 (unknown) (no date) (unknown[facility]) Result panel 99 (unknown) (no date) (unknown[facility]) Result panel 100 (unknown) (no date) (unknown[facility]) Result panel 101 (unknown) (no date) (unknown[facility]) Result panel 102 (unknown) (no date) (unknown[facility]) Result panel 103 (unknown) (no date) (unknown[facility]) Result panel 104 (unknown) (no date) (unknown[facility]) Result panel 105 (unknown) (no date) (unknown[facility]) Result panel 106 (unknown) (no date) (unknown[facility]) Result panel 107 (unknown) (no date) (unknown[facility]) Result panel 108 (unknown) (no date) (unknown[facility]) Result panel 109 (unknown) (no date) (unknown[facility]) Result panel 110 (unknown) (no date) (unknown[facility]) Result panel 111 (unknown) (no date) (unknown[facility]) Result panel 112 (unknown) (no date) (unknown[facility]) Result panel 113 (unknown) (no date) (unknown[facility]) Result panel 114 (unknown) (no date) (unknown[facility]) Result panel 115 (unknown) (no date) (unknown[facility]) Result panel 116 (unknown) (no date) (unknown[facility]) Result panel 117 (unknown) (no date) (unknown[facility]) Result panel 118 (unknown) (no date) (unknown[facility]) Result panel 119 (unknown) (no date) (unknown[facility]) Result panel 120 (unknown) (no date) (unknown[facility]) Result panel 121 (unknown) (no date) (unknown[facility]) Result panel 122 (unknown) (no date) (unknown[facility]) Result panel 123 (unknown) (no date) (unknown[facility]) Result panel 124 (unknown) (no date) (unknown[facility]) Result panel 125 (unknown) (no date) (unknown[facility]) Result panel 126 (unknown) (no date) (unknown[facility]) Result panel 127 (unknown) (no date) (unknown[facility]) Result panel 128 (unknown) (no date) (unknown[facility]) Result panel 129 (unknown) (no date) (unknown[facility]) Result panel 130 (unknown) (no date) (unknown[facility]) Result panel 131 (unknown) (no date) (unknown[facility]) Result panel 132 (unknown) (no date) (unknown[facility]) Result panel 133 (unknown) (no date) (unknown[facility]) Result panel 134 (unknown) (no date) (unknown[facility]) Result panel 135 (unknown) (no date) (unknown[facility]) Result panel 136 (unknown) (no date) (unknown[facility]) Result panel 137 (unknown) (no date) (unknown[facility]) Result panel 138 (unknown) (no date) (unknown[facility]) Result panel 139 (unknown) (no date) (unknown[facility]) Result panel 140 (unknown) (no date) (unknown[facility]) Result panel 141 (unknown) (no date) (unknown[facility]) Result panel 142 (unknown) (no date) (unknown[facility]) Result panel 143 (unknown) (no date) (unknown[facility]) Result panel 144 (unknown) (no date) (unknown[facility]) Result panel 145 (unknown) (no date) (unknown[facility]) Result panel 146 (unknown) (no date) (unknown[facility]) Result panel 147 (unknown) (no date) (unknown[facility]) Result panel 148 (unknown) (no date) (unknown[facility]) Result panel 149 (unknown) (no date) (unknown[facility]) Result panel 150 (unknown) (no date) (unknown[facility]) Result panel 151 (unknown) (no date) (unknown[facility]) Result panel 152 (unknown) (no date) (unknown[facility]) Result panel 153 (unknown) (no date) (unknown[facility]) Result panel 154 (unknown) (no date) (unknown[facility]) Result panel 155 (unknown) (no date) (unknown[facility]) Result panel 156 (unknown) (no date) (unknown[facility]) Result panel 157 (unknown) (no date) (unknown[facility]) Result panel 158 (unknown) (no date) (unknown[facility]) Result panel 159 (unknown) (no date) (unknown[facility]) Result panel 160 (unknown) (no date) (unknown[facility]) Result panel 161 (unknown) (no date) (unknown[facility]) Result panel 162 (unknown) (no date) (unknown[facility]) Result panel 163 (unknown) (no date) (unknown[facility]) Result panel 164 (unknown) (no date) (unknown[facility]) Result panel 165 (unknown) (no date) (unknown[facility]) Result panel 166 (unknown) (no date) (unknown[facility]) Result panel 167 (unknown) (no date) (unknown[facility]) Result panel 168 (unknown) (no date) (unknown) [facility]) Result panel 169 (unknown) (no date) (unknown[facility]) Result panel 170 (unknown) (no date) (unknown) [facility]) Result panel 171 (unknown) (no date) (unknown[facility]) Result panel 172 (unknown) (no date) (unknown) [facility]) Result panel 173 (unknown) (no date) (unknown[facility]) Result panel 174 (unknown) (no date) (unknown) [facility]) Result panel 175 (unknown) (no date) (unknown) [facility]) Result panel 176 (unknown) (no date) (unknown) [facility]) Result panel 177 (unknown) (no date) (unknown) [facility]) Result panel 178 (unknown) (no date) (unknown[facility]) Result panel 179 (unknown) (no date) (unknown[facility]) Result panel 180 (unknown) (no date) (unknown[facility]) Result panel 181 (unknown) (no date) (unknown) [facility]) Result panel 182 (unknown) (no date) (unknown[facility]) Result panel 183 (unknown) (no date) (unknown[facility]) Result panel 184 (unknown) (no date) (unknown[facility]) Result panel 185 (unknown) (no date) (unknown[facility]) Result panel 186 (unknown) (no date) (unknown) [facility]) Result panel 187 (unknown) (no date) (unknown[facility]) Result panel 188 (unknown) (no date) (unknown[facility]) Result panel 189 (unknown) (no date) (unknown[facility]) Result panel 190 (unknown) (no date) (unknown) [facility]) Result panel 191 (unknown) (no date) (unknown[facility]) Result panel 192 (unknown) (no date) (unknown[facility]) Result panel 193 (unknown) (no date) (unknown) [facility]) Result panel 194 (unknown) (no date) (unknown) [facility]) Result panel 195 (unknown) (no date) (unknown) [facility]) Result panel 196 (unknown) (no date) (unknown) [facility]) Result panel 197 (unknown) (no date) (unknown) [facility]) Result panel 198 (unknown) (no date) (unknown) [facility]) Result panel 199 (unknown) (no date) (unknown) [facility]) Result panel 200 (unknown) (no date) (unknown) [facility]) Result panel 201 (unknown) (no date) (unknown) [facility]) Result panel 202 (unknown) (no date) (unknown) [facility]) Result panel 203 (unknown) (no date) (unknown) [facility]) Result panel 204 (unknown) (no date) (unknown) [facility]) Result panel 205 (unknown) (no date) (unknown) [facility]) Result panel 206 (unknown) (no date) (unknown) [facility]) Result panel 207 (unknown) (no date) (unknown) [facility]) Result panel 208 (unknown) (no date) (unknown) [facility]) Result panel 209 (unknown) (no date) (unknown) [facility]) Result panel 210 (unknown) (no date) (unknown) [facility]) Result panel 211 (unknown) (no date) (unknown) [facility]) Result panel 212 (unknown) (no date) (unknown) [facility]) Result panel 213 (unknown) (no date) (unknown) [facility]) Result panel 214 (unknown) (no date) (unknown) [facility]) Result panel 215 (unknown) (no date) (unknown) [facility]) Result panel 216 (unknown) (no date) (unknown) [facility]) Result panel 217 (unknown) (no date) (unknown) [facility]) Result panel 218 (unknown) (no date) (unknown) [facility]) Result panel 219 (unknown) (no date) (unknown) [facility]) Result panel 220 (unknown) (no date) (unknown) [facility]) Result panel 221 (unknown) (no date) (unknown) [facility]) Result panel 222 (unknown) (no date) (unknown) [facility]) Result panel 223 (unknown) (no date) (unknown) [facility]) Result panel 224 (unknown) (no date) (unknown) [facility] Result panel 225 (unknown) (no date) (unknown) [facility]) Result panel 226 (unknown) (no date) (unknown) [facility] Result panel 227 (unknown) (no date) (unknown) [facility] Result panel 228 (unknown) (no date) (unknown) [facility]) Result panel 229 (unknown) (no date) (unknown) [facility]) Result panel 230 (unknown) (no date) (unknown) [facility] Result panel 231 (unknown) (no date) (unknown[facility]) Result panel 232 (unknown) (no date) (unknown) [facility] Result panel 233 (unknown) (no date) (unknown) [facility]) Result panel 234 (unknown) (no date) (unknown) [facility]) Result panel 235 (unknown) (no date) (unknown) [facility]) Result panel 236 (unknown) (no date) (unknown) [facility]) Result panel 237 (unknown) (no date) (unknown[facility]) Result panel 238 (unknown) (no date) (unknown) [facility] Result panel 239 (unknown) (no date) (unknown[facility]) Result panel 240 (unknown) (no date) (unknown) [facility]) Result panel 241 (unknown) (no date) (unknown) [facility]) Result panel 242 (unknown) (no date) (unknown) [facility]) Result panel 243 (unknown) (no date) (unknown) [facility]) Result panel 244 (unknown) (no date) (unknown) [facility]) Result panel 245 (unknown) (no date) (unknown) [facility] Result panel 246 (unknown) (no date) (unknown) [facility]) Result panel 247 (unknown) (no date) (unknown) [facility] Result panel 248 (unknown) (no date) (unknown[facility] Result panel 249 (unknown) (no date) (unknown) [facility]) Result panel 250 (unknown) (no date) (unknown[facility]) Result panel 251 (unknown) (no date) (unknown) [facility] Result panel 252 (unknown) (no date) (unknown) [facility]) Result panel 253 (unknown) (no date) (unknown) [facility]) Result panel 254 (unknown) (no date) (unknown) [facility]) Result panel 255 (unknown) (no date) (unknown) [facility]) Result panel 256 (unknown) (no date) (unknown) [facility]) Result panel 257 (unknown) (no date) (unknown) [facility]) Result panel 258 (unknown) (no date) (unknown) [facility]) Result panel 259 (unknown) (no date) (unknown) [facility]) Result panel 260 (unknown) (no date) (unknown) [facility]) Result panel 261 (unknown) (no date) (unknown) [facility]) Result panel 262 (unknown) (no date) (unknown) [facility]) Result panel 263 (unknown) (no date) (unknown) [facility]) Result panel 264 (unknown) (no date) (unknown) [facility]) Result panel 265 (unknown) (no date) (unknown) [facility] Result panel 266 (unknown) (no date) (unknown) [facility] Result panel 267 (unknown) (no date) (unknown) [facility]) Result panel 268 (unknown) (no date) (unknown) [facility] Result panel 269 (unknown) (no date) (unknown) [facility]) Result panel 270 (unknown) (no date) (unknown) [facility]) Result panel 271 (unknown) (no date) (unknown) [facility]) Result panel 272 (unknown) (no date) (unknown) [facility]) Result panel 273 (unknown) (no date) (unknown) [facility]) Result panel 274 (unknown) (no date) (unknown) [facility]) Result panel 275 (unknown) (no date) (unknown) [facility]) Result panel 276 (unknown) (no date) (unknown) [facility] Result panel 277 (unknown) (no date) (unknown) [facility]) Result panel 278 (unknown) (no date) (unknown) [facility]) Result panel 279 (unknown) (no date) (unknown) [facility]) Result panel 280 (unknown) (no date) (unknown) [facility]) Result panel 281 (unknown) (no date) (unknown) [facility]) Result panel 282 (unknown) (no date) (unknown) [facility]) Result panel 283 (unknown) (no date) (unknown) [facility]) Result panel 284 (unknown) (no date) (unknown) [facility]) Result panel 285 (unknown) (no date) (unknown) [facility] Result panel 286 (unknown) (no date) (unknown) [facility]) Result panel 287 (unknown) (no date) (unknown) [facility]) Result panel 288 (unknown) (no date) (unknown) [facility]) Result panel 289 (unknown) (no date) (unknown) [facility]) Result panel 290 (unknown) (no date) (unknown) [facility]) Result panel 291 (unknown) (no date) (unknown) [facility]) Result panel 292 (unknown) (no date) (unknown) [facility]) Result panel 293 (unknown) (no date) (unknown) [facility]) Result panel 294 (unknown) (no date) (unknown) [facility]) Result panel 295 (unknown) (no date) (unknown) [facility]) Result panel 296 (unknown) (no date) (unknown) [facility]) Result panel 297 (unknown) (no date) (unknown) [facility]) Result panel 298 (unknown) (no date) (unknown) [facility]) Result panel 299 (unknown) (no date) (unknown) [facility]) Result panel 300 (unknown) (no date) (unknown) [facility]) Result panel 301 (unknown) (no date) (unknown) [facility]) Result panel 302 (unknown) (no date) (unknown) [facility]) Result panel 303 (unknown) (no date) (unknown) [facility]) Result panel 304 (unknown) (no date) (unknown) [facility]) Result panel 305 (unknown) (no date) (unknown) [facility]) Result panel 306 (unknown) (no date) (unknown) [facility]) Result panel 307 (unknown) (no date) (unknown) [facility]) Result panel 308 (unknown) (no date) (unknown) [facility]) Result panel 309 (unknown) (no date) (unknown) [facility]) Result panel 310 (unknown) (no date) (unknown) [facility]) Result panel 311 (unknown) (no date) (unknown) [facility]) Result panel 312 (unknown) (no date) (unknown) [facility]) Result panel 313 (unknown) (no date) (unknown) [facility]) Result panel 314 (unknown) (no date) (unknown) [facility]) Result panel 315 (unknown) (no date) (unknown) [facility]) Result panel 316 (unknown) (no date) (unknown) [facility]) Result panel 317 (unknown) (no date) (unknown) [facility]) Result panel 318 (unknown) (no date) (unknown) [facility]) Result panel 319 (unknown) (no date) (unknown) [facility]) Result panel 320 (unknown) (no date) (unknown) [facility]) Result panel 321 (unknown) (no date) (unknown) [facility]) Result panel 322 (unknown) (no date) (unknown) [facility]) Result panel 323 (unknown) (no date) (unknown) [facility]) Result panel 324 (unknown) (no date) (unknown) [facility]) Result panel 325 (unknown) (no date) (unknown) [facility]) Result panel 326 (unknown) (no date) (unknown) [facility]) Result panel 327 (unknown) (no date) (unknown) [facility]) Result panel 328 (unknown) (no date) (unknown) [facility]) Result panel 329 (unknown) (no date) (unknown) [facility]) Result panel 330 (unknown) (no date) (unknown) [facility]) Result panel 331 (unknown) (no date) (unknown) [facility]) Result panel 332 (unknown) (no date) (unknown) [facility]) Result panel 333 (unknown) (no date) (unknown) [facility]) Result panel 334 (unknown) (no date) (unknown) [facility]) Result panel 335 (unknown) (no date) (unknown) [facility]) Result panel 336 (unknown) (no date) (unknown) [facility]) Result panel 337 (unknown) (no date) (unknown) [facility]) Result panel 338 (unknown) (no date) (unknown) [facility]) Result panel 339 (unknown) (no date) (unknown) [facility]) Result panel 340 (unknown) (no date) (unknown) [facility]) Result panel 341 (unknown) (no date) (unknown) [facility]) Result panel 342 (unknown) (no date) (unknown) [facility]) Result panel 343 (unknown) (no date) (unknown) [facility]) Result panel 344 (unknown) (no date) (unknown) [facility]) Result panel 345 (unknown) (no date) (unknown) [facility]) Result panel 346 (unknown) (no date) (unknown) [facility]) Result panel 347 (unknown) (no date) (unknown) [facility]) Result panel 348 (unknown) (no date) (unknown) [facility]) Result panel 349 (unknown) (no date) (unknown) [facility]) Result panel 350 (unknown) (no date) (unknown) [facility]) Result panel 351 (unknown) (no date) (unknown) [facility]) Result panel 352 (unknown) (no date) (unknown) [facility]) Result panel 353 (unknown) (no date) (unknown) [facility]) Result panel 354 (unknown) (no date) (unknown) [facility]) Result panel 355 (unknown) (no date) (unknown) [facility]) Result panel 356 (unknown) (no date) (unknown) [facility]) Result panel 357 (unknown) (no date) (unknown) [facility]) Result panel 358 (unknown) (no date) (unknown) [facility]) Result panel 359 (unknown) (no date) (unknown) [facility]) Result panel 360 (unknown) (no date) (unknown) [facility]) Result panel 361 (unknown) (no date) (unknown) [facility]) Result panel 362 (unknown) (no date) (unknown) [facility]) Result panel 363 (unknown) (no date) (unknown) [facility]) Result panel 364 (unknown) (no date) (unknown) [facility]) Result panel 365 (unknown) (no date) (unknown) [facility]) Result panel 366 (unknown) (no date) (unknown) [facility]) Result panel 367 (unknown) (no date) (unknown) [facility]) Result panel 368 (unknown) (no date) (unknown) [facility]) Result panel 369 (unknown) (no date) (unknown) [facility]) Result panel 370 (unknown) (no date) (unknown) [facility]) Result panel 371 (unknown) (no date) (unknown) [facility]) Result panel 372 (unknown) (no date) (unknown) [facility]) Result panel 373 (unknown) (no date) (unknown) [facility]) Result panel 374 (unknown) (no date) (unknown) [facility]) Result panel 375 (unknown) (no date) (unknown) [facility]) Result panel 376 (unknown) (no date) (unknown) [facility]) Result panel 377 (unknown) (no date) (unknown) [facility]) Result panel 378 (unknown) (no date) (unknown) [facility]) Result panel 379 (unknown) (no date) (unknown) [facility]) Result panel 380 (unknown) (no date) (unknown) [facility]) Result panel 381 (unknown) (no date) (unknown) [facility]) Result panel 382 (unknown) (no date) (unknown) [facility]) Result panel 383 (unknown) (no date) (unknown) [facility]) Result panel 384 (unknown) (no date) (unknown) [facility]) Result panel 385 (unknown) (no date) (unknown) [facility]) Result panel 386 (unknown) (no date) (unknown) [facility]) Result panel 387 (unknown) (no date) (unknown) [facility]) Result panel 388 (unknown) (no date) (unknown) [facility]) Result panel 389 (unknown) (no date) (unknown) [facility]) Result panel 390 (unknown) (no date) (unknown[facility]) Result panel 391 (unknown) (no date) (unknown) [facility]) Result panel 392 (unknown) (no date) (unknown) [facility]) Result panel 393 (unknown) (no date) (unknown) [facility]) Result panel 394 (unknown) (no date) (unknown) [facility]) Result panel 395 (unknown) (no date) (unknown) [facility]) Result panel 396 (unknown) (no date) (unknown) [facility]) Result panel 397 (unknown) (no date) (unknown) [facility]) Result panel 398 (unknown) (no date) (unknown) [facility]) Result panel 399 (unknown) (no date) (unknown) [facility]) Result panel 400 (unknown) (no date) (unknown) [facility]) Result panel 401 (unknown) (no date) (unknown) [facility]) Result panel 402 (unknown) (no date) (unknown) [facility]) Result panel 403 (unknown) (no date) (unknown) [facility]) Result panel 404 (unknown) (no date) (unknown) [facility]) Result panel 405 (unknown) (no date) (unknown) [facility]) Result panel 406 (unknown) (no date) (unknown) [facility]) Result panel 407 (unknown) (no date) (unknown) [facility]) Result panel 408 (unknown) (no date) (unknown) [facility]) Result panel 409 (unknown) (no date) (unknown) [facility]) Result panel 410 (unknown) (no date) (unknown) [facility]) Result panel 411 (unknown) (no date) (unknown) [facility]) Result panel 412 (unknown) (no date) (unknown) [facility]) Result panel 413 (unknown) (no date) (unknown) [facility]) Result panel 414 (unknown) (no date) (unknown) [facility]) Result panel 415 (unknown) (no date) (unknown) [facility]) Result panel 416 (unknown) (no date) (unknown) [facility]) Result panel 417 (unknown) (no date) (unknown) [facility]) Result panel 418 (unknown) (no date) (unknown) [facility]) Result panel 419 (unknown) (no date) (unknown) [facility]) Result panel 420 (unknown) (no date) (unknown) [facility]) Result panel 421 (unknown) (no date) (unknown) [facility]) Result panel 422 (unknown) (no date) (unknown) [facility]) Result panel 423 (unknown) (no date) (unknown) [facility]) Result panel 424 (unknown) (no date) (unknown) [facility]) Result panel 425 (unknown) (no date) (unknown) [facility]) Result panel 426 (unknown) (no date) (unknown) [facility]) Result panel 427 (unknown) (no date) (unknown) [facility]) Result panel 428 (unknown) (no date) (unknown) [facility]) Result panel 429 (unknown) (no date) (unknown) [facility]) Result panel 430 (unknown) (no date) (unknown) [facility]) Result panel 431 (unknown) (no date) (unknown) [facility]) Result panel 432 (unknown) (no date) (unknown) [facility]) Result panel 433 (unknown) (no date) (unknown) [facility]) Result panel 434 (unknown) (no date) (unknown) [facility]) Result panel 435 (unknown) (no date) (unknown) [facility]) Result panel 436 (unknown) (no date) (unknown) [facility]) Result panel 437 (unknown) (no date) (unknown) [facility]) Result panel 438 (unknown) (no date) (unknown) [facility]) Result panel 439 (unknown) (no date) (unknown) [facility]) Result panel 440 (unknown) (no date) (unknown) [facility]) Result panel 441 (unknown) (no date) (unknown) [facility]) Result panel 442 (unknown) (no date) (unknown) [facility]) Result panel 443 (unknown) (no date) (unknown) [facility]) Result panel 444 (unknown) (no date) (unknown) [facility]) Result panel 445 (unknown) (no date) (unknown) [facility]) Result panel 446 (unknown) (no date) (unknown) [facility]) Result panel 447 (unknown) (no date) (unknown) [facility]) Result panel 448 (unknown) (no date) (unknown) [facility]) Result panel 449 (unknown) (no date) (unknown) [facility]) Result panel 450 (unknown) (no date) (unknown) [facility]) Result panel 451 (unknown) (no date) (unknown) [facility]) Result panel 452 (unknown) (no date) (unknown) [facility]) Result panel 453 (unknown) (no date) (unknown) [facility]) Result panel 454 (unknown) (no date) (unknown) [facility]) Result panel 455 (unknown) (no date) (unknown) [facility]) Result panel 456 (unknown) (no date) (unknown) [facility]) Result panel 457 (unknown) (no date) (unknown) [facility]) Result panel 458 (unknown) (no date) (unknown) [facility] Result panel 459 (unknown) (no date) (unknown) [facility] Result panel 460 (unknown) (no date) (unknown) [facility]) Result panel 461 (unknown) (no date) (unknown) [facility] Result panel 462 (unknown) (no date) (unknown) [facility] [facility]) Result panel 463 (unknown) (no date) (unknown) [facility]) Result panel 464 (unknown) (no date) (unknown) [facility] Result panel 465 (unknown) (no date) (unknown) [facility] Result panel 466 (unknown) (no date) (unknown[facility] Result panel 467 (unknown) (no date) (unknown) [facility] Result panel 468 (unknown) (no date) (unknown) [facility] Result panel 469 (unknown) (no date) (unknown) [facility] Result panel 470 (unknown) (no date) (unknown) [facility] Result panel 471 (unknown) (no date) (unknown) [facility] Result panel 472 (unknown) (no date) (unknown) [facility] Result panel 473 (unknown) (no date) (unknown) [facility] Result panel 474 (unknown) (no date) (unknown) [facility] Result panel 475 (unknown) (no date) (unknown) [facility] Result panel 476 (unknown) (no date) (unknown) [facility] Result panel 477 (unknown) (no date) (unknown) [facility] Result panel 478 (unknown) (no date) (unknown) [facility] Result panel 479 (unknown) (no date) (unknown[facility] Result panel 480 (unknown) (no date) (unknown) [facility] Result panel 481 (unknown) (no date) (unknown) [facility] Result panel 482 (unknown) (no date) (unknown) [facility] Result panel 483 (unknown) (no date) (unknown) [facility] Result panel 484 (unknown) (no date) (unknown) [facility] Result panel 485 (unknown) (no date) (unknown) [facility] Result panel 486 (unknown) (no date) (unknown) [facility] Result panel 487 (unknown) (no date) (unknown) [facility] Result panel 488 (unknown) (no date) (unknown) [facility] Result panel 489 (unknown) (no date) (unknown) [facility] Result panel 490 (unknown) (no date) (unknown) [facility] Result panel 491 (unknown) (no date) (unknown) [facility] Result panel 492 (unknown) (no date) (unknown[facility]) Result panel 493 (unknown) (no date) (unknown) [facility] Result panel 494 (unknown) (no date) (unknown) [facility] Result panel 495 (unknown) (no date) (unknown) [facility] Result panel 496 (unknown) (no date) (unknown[facility]) Result panel 497 (unknown) (no date) (unknown) [facility] Result panel 498 (unknown) (no date) (unknown) [facility]) Result panel 499 (unknown) (no date) (unknown) [facility] Result panel 500 (unknown) (no date) (unknown) [facility] Result panel 501 (unknown) (no date) (unknown) [facility] Result panel 502 (unknown) (no date) (unknown) [facility] Result panel 503 (unknown) (no date) (unknown) [facility] Result panel 504 (unknown) (no date) (unknown) [facility] Result panel 505 (unknown) (no date) (unknown) [facility] Result panel 506 (unknown) (no date) (unknown[facility]) Result panel 507 (unknown) (no date) (unknown) [facility]) Result panel 508 (unknown) (no date) (unknown[facility]) Result panel 509 (unknown) (no date) (unknown) [facility]) Result panel 510 (unknown) (no date) (unknown[facility] Result panel 511 (unknown) (no date) (unknown) [facility] Result panel 512 (unknown) (no date) (unknown[facility]) Result panel 513 (unknown) (no date) (unknown) [facility] Result panel 514 (unknown) (no date) (unknown) [facility] Result panel 515 (unknown) (no date) (unknown) [facility] Result panel 516 (unknown) (no date) (unknown) [facility] Result panel 517 (unknown) (no date) (unknown) [facility]) Result panel 518 (unknown) (no date) (unknown) [facility] Result panel 519 (unknown) (no date) (unknown) [facility]) Result panel 520 (unknown) (no date) (unknown) [facility]) Result panel 521 (unknown) (no date) (unknown) [facility]) Result panel 522 (unknown) (no date) (unknown) [facility]) Result panel 523 (unknown) (no date) (unknown) [facility] Result panel 524 (unknown) (no date) (unknown) [facility] Result panel 525 (unknown) (no date) (unknown) [facility]) Result panel 526 (unknown) (no date) (unknown) [facility] Result panel 527 (unknown) (no date) (unknown) [facility] Result panel 528 (unknown) (no date) (unknown) [facility]) Result panel 529 (unknown) (no date) (unknown[facility]) Result panel 530 (unknown) (no date) (unknown) [facility] Result panel 531 (unknown) (no date) (unknown) [facility]) Result panel 532 (unknown) (no date) (unknown) [facility]) Result panel 533 (unknown) (no date) (unknown) [facility] Result panel 534 (unknown) (no date) (unknown) [facility] Result panel 535 (unknown) (no date) (unknown) [facility]) Result panel 536 (unknown) (no date) (unknown) [facility] Result panel 537 (unknown) (no date) (unknown[facility]) Result panel 538 (unknown) (no date) (unknown) [facility]) Result panel 539 (unknown) (no date) (unknown) [facility]) Result panel 540 (unknown) (no date) (unknown) [facility]) Result panel 541 (unknown) (no date) (unknown) [facility]) Result panel 542 (unknown) (no date) (unknown) [facility]) Result panel 543 (unknown) (no date) (unknown) [facility]) Result panel 544 (unknown) (no date) (unknown[facility]) Result panel 545 (unknown) (no date) (unknown) [facility]) Result panel 546 (unknown) (no date) (unknown) [facility]) Result panel 547 (unknown) (no date) (unknown) [facility]) Result panel 548 (unknown) (no date) (unknown) [facility] Result panel 549 (unknown) (no date) (unknown[facility]) Result panel 550 (unknown) (no date) (unknown) [facility] Result panel 551 (unknown) (no date) (unknown) [facility] Result panel 552 (unknown) (no date) (unknown) [facility]) Result panel 553 (unknown) (no date) (unknown) [facility]) Result panel 554 (unknown) (no date) (unknown) [facility]) Result panel 555 (unknown) (no date) (unknown) [facility]) Result panel 556 (unknown) (no date) (unknown) [facility]) Result panel 557 (unknown) (no date) (unknown) [facility]) Result panel 558 (unknown) (no date) (unknown) [facility]) Result panel 559 (unknown) (no date) (unknown) [facility]) Result panel 560 (unknown) (no date) (unknown) [facility]) Result panel 561 (unknown) (no date) (unknown) [facility]) Result panel 562 (unknown) (no date) (unknown) [facility]) Result panel 563 (unknown) (no date) (unknown) [facility]) Result panel 564 (unknown) (no date) (unknown[facility]) Result panel 565 (unknown) (no date) (unknown) [facility]) Result panel 566 (unknown) (no date) (unknown) [facility]) Result panel 567 (unknown) (no date) (unknown) [facility]) Result panel 568 (unknown) (no date) (unknown[facility]) Result panel 569 (unknown) (no date) (unknown) [facility]) Result panel 570 (unknown) (no date) (unknown) [facility]) Result panel 571 (unknown) (no date) (unknown) [facility]) Result panel 572 (unknown) (no date) (unknown) [facility]) Result panel 573 (unknown) (no date) (unknown[facility]) Result panel 574 (unknown) (no date) (unknown[facility]) Result panel 575 (unknown) (no date) (unknown) [facility]) Result panel 576 (unknown) (no date) (unknown) [facility]) Result panel 577 (unknown) (no date) (unknown) [facility]) Result panel 578 (unknown) (no date) (unknown) [facility]) Result panel 579 (unknown) (no date) (unknown) [facility]) Result panel 580 (unknown) (no date) (unknown) [facility]) Result panel 581 (unknown) (no date) (unknown) [facility]) Result panel 582 (unknown) (no date) (unknown) [facility]) Result panel 583 (unknown) (no date) (unknown) [facility]) Result panel 584 (unknown) (no date) (unknown) [facility]) Result panel 585 (unknown) (no date) (unknown) [facility]) Result panel 586 (unknown) (no date) (unknown) [facility]) Result panel 587 (unknown) (no date) (unknown) [facility]) Result panel 588 (unknown) (no date) (unknown) [facility]) Result panel 589 (unknown) (no date) (unknown) [facility]) Result panel 590 (unknown) (no date) (unknown) [facility]) Result panel 591 (unknown) (no date) (unknown) [facility]) Result panel 592 (unknown) (no date) (unknown) [facility]) Result panel 593 (unknown) (no date) (unknown) [facility]) Result panel 594 (unknown) (no date) (unknown) [facility]) Result panel 595 (unknown) (no date) (unknown) [facility]) Result panel 596 (unknown) (no date) (unknown) [facility]) Result panel 597 (unknown) (no date) (unknown) [facility]) Result panel 598 (unknown) (no date) (unknown) [facility]) Result panel 599 (unknown) (no date) (unknown) [facility]) Result panel 600 (unknown) (no date) (unknown) [facility]) Result panel 601 (unknown) (no date) (unknown) [facility]) Result panel 602 (unknown) (no date) (unknown) [facility]) Result panel 603 (unknown) (no date) (unknown) [facility]) Result panel 604 (unknown) (no date) (unknown) [facility]) Result panel 605 (unknown) (no date) (unknown) [facility]) Result panel 606 (unknown) (no date) (unknown) [facility]) Result panel 607 (unknown) (no date) (unknown) [facility]) Result panel 608 (unknown) (no date) (unknown) [facility]) Result panel 609 (unknown) (no date) (unknown) [facility]) Result panel 610 (unknown) (no date) (unknown) [facility]) Result panel 611 (unknown) (no date) (unknown) [facility]) Result panel 612 (unknown) (no date) (unknown[facility]) Result panel 613 (unknown) (no date) (unknown) [facility]) Result panel 614 (unknown) (no date) (unknown) [facility]) Result panel 615 (unknown) (no date) (unknown[facility]) Result panel 616 (unknown) (no date) (unknown) [facility]) Result panel 617 (unknown) (no date) (unknown[facility]) Result panel 618 (unknown) (no date) (unknown) [facility]) Result panel 619 (unknown) (no date) (unknown) [facility]) Result panel 620 (unknown) (no date) (unknown) [facility]) Result panel 621 (unknown) (no date) (unknown) [facility]) Result panel 622 (unknown) (no date) (unknown) [facility]) Result panel 623 (unknown) (no date) (unknown) [facility]) Result panel 624 (unknown) (no date) (unknown) [facility]) Result panel 625 (unknown) (no date) (unknown) [facility]) Result panel 626 (unknown) (no date) (unknown) [facility]) Result panel 627 (unknown) (no date) (unknown) [facility]) Result panel 628 (unknown) (no date) (unknown) [facility]) Result panel 629 (unknown) (no date) (unknown) [facility]) Result panel 630 (unknown) (no date) (unknown) [facility]) Result panel 631 (unknown) (no date) (unknown) [facility]) Result panel 632 (unknown) (no date) (unknown) [facility]) Result panel 633 (unknown) (no date) (unknown) [facility]) Result panel 634 (unknown) (no date) (unknown[facility]) Result panel 635 (unknown) (no date) (unknown) [facility]) Result panel 636 (unknown) (no date) (unknown) [facility]) Result panel 637 (unknown) (no date) (unknown) [facility]) Result panel 638 (unknown) (no date) (unknown[facility]) Result panel 639 (unknown) (no date) (unknown) [facility]) Result panel 640 (unknown) (no date) (unknown[facility]) Result panel 641 (unknown) (no date) (unknown) [facility]) Result panel 642 (unknown) (no date) (unknown) [facility]) Result panel 643 (unknown) (no date) (unknown) [facility]) Result panel 644 (unknown) (no date) (unknown) [facility]) Result panel 645 (unknown) (no date) (unknown) [facility]) Result panel 646 (unknown) (no date) (unknown) [facility]) Result panel 647 (unknown) (no date) (unknown[facility]) Result panel 648 (unknown) (no date) (unknown) [facility]) Result panel 649 (unknown) (no date) (unknown) [facility]) Result panel 650 (unknown) (no date) (unknown[facility]) Result panel 651 (unknown) (no date) (unknown) [facility]) Result panel 652 (unknown) (no date) (unknown) [facility]) Result panel 653 (unknown) (no date) (unknown) [facility]) Result panel 654 (unknown) (no date) (unknown) [facility]) Result panel 655 (unknown) (no date) (unknown) [facility]) Result panel 656 (unknown) (no date) (unknown) [facility]) Result panel 657 (unknown) (no date) (unknown) [facility]) Result panel 658 (unknown) (no date) (unknown) [facility]) Result panel 659 (unknown) (no date) (unknown) [facility]) Result panel 660 (unknown) (no date) (unknown) [facility]) Result panel 661 (unknown) (no date) (unknown) [facility]) Result panel 662 (unknown) (no date) (unknown) [facility]) Result panel 663 (unknown) (no date) (unknown) [facility]) Result panel 664 (unknown) (no date) (unknown) [facility]) Result panel 665 (unknown) (no date) (unknown) [facility]) Result panel 666 (unknown) (no date) (unknown) [facility]) Result panel 667 (unknown) (no date) (unknown[facility]) Result panel 668 (unknown) (no date) (unknown) [facility]) Result panel 669 (unknown) (no date) (unknown) [facility]) Result panel 670 (unknown) (no date) (unknown) [facility]) Result panel 671 (unknown) (no date) (unknown) [facility]) Result panel 672 (unknown) (no date) (unknown) [facility]) Result panel 673 (unknown) (no date) (unknown) [facility]) Result panel 674 (unknown) (no date) (unknown) [facility]) Result panel 675 (unknown) (no date) (unknown) [facility]) Result panel 676 (unknown) (no date) (unknown) [facility]) Result panel 677 (unknown) (no date) (unknown) [facility]) Result panel 678 (unknown) (no date) (unknown) [facility]) Result panel 679 (unknown) (no date) (unknown[facility]) Result panel 680 (unknown) (no date) (unknown) [facility]) Result panel 681 (unknown) (no date) (unknown[facility]) Result panel 682 (unknown) (no date) (unknown) [facility]) Result panel 683 (unknown) (no date) (unknown) [facility]) Result panel 684 (unknown) (no date) (unknown) [facility]) Result panel 685 (unknown) (no date) (unknown) [facility]) Result panel 686 (unknown) (no date) (unknown) [facility]) Result panel 687 (unknown) (no date) (unknown) [facility]) Result panel 688 (unknown) (no date) (unknown[facility]) Result panel 689 (unknown) (no date) (unknown) [facility]) Result panel 690 (unknown) (no date) (unknown) [facility]) Result panel 691 (unknown) (no date) (unknown) [facility]) Result panel 692 (unknown) (no date) (unknown) [facility]) Result panel 693 (unknown) (no date) (unknown) [facility]) Result panel 694 (unknown) (no date) (unknown) [facility]) Result panel 695 (unknown) (no date) (unknown) [facility]) Result panel 696 (unknown) (no date) (unknown) [facility]) Result panel 697 (unknown) (no date) (unknown) [facility]) Result panel 698 (unknown) (no date) (unknown[facility]) Result panel 699 (unknown) (no date) (unknown) [facility] Result panel 700 (unknown) (no date) (unknown) [facility]) Result panel 701 (unknown) (no date) (unknown) [facility] Result panel 702 (unknown) (no date) (unknown) [facility] Result panel 703 (unknown) (no date) (unknown) [facility] Result panel 704 (unknown) (no date) (unknown) [facility]) Result panel 705 (unknown) (no date) (unknown) [facility] Result panel 706 (unknown) (no date) (unknown[facility] Result panel 707 (unknown) (no date) (unknown) [facility]) Result panel 708 (unknown) (no date) (unknown) [facility]) Result panel 709 (unknown) (no date) (unknown) [facility] Result panel 710 (unknown) (no date) (unknown) [facility]) Result panel 711 (unknown) (no date) (unknown) [facility] Result panel 712 (unknown) (no date) (unknown) [facility]) Result panel 713 (unknown) (no date) (unknown[facility]) Result panel 714 (unknown) (no date) (unknown) [facility]) Result panel 715 (unknown) (no date) (unknown) [facility] Result panel 716 (unknown) (no date) (unknown[facility]) Result panel 717 (unknown) (no date) (unknown) [facility]) Result panel 718 (unknown) (no date) (unknown) [facility]) Result panel 719 (unknown) (no date) (unknown) [facility] Result panel 720 (unknown) (no date) (unknown) [facility]) Result panel 721 (unknown) (no date) (unknown) [facility] Result panel 722 (unknown) (no date) (unknown) [facility] Result panel 723 (unknown) (no date) (unknown) [facility]) Result panel 724 (unknown) (no date) (unknown[facility]) Result panel 725 (unknown) (no date) (unknown) [facility] Result panel 726 (unknown) (no date) (unknown[facility]) Result panel 727 (unknown) (no date) (unknown) [facility]) Result panel 728 (unknown) (no date) (unknown[facility] Result panel 729 (unknown) (no date) (unknown) [facility]) Result panel 730 (unknown) (no date) (unknown) [facility] Result panel 731 (unknown) (no date) (unknown) [facility]) Result panel 732 (unknown) (no date) (unknown) [facility]) Result panel 733 (unknown) (no date) (unknown) [facility]) Result panel 734 (unknown) (no date) (unknown) [facility]) Result panel 735 (unknown) (no date) (unknown) [facility]) Result panel 736 (unknown) (no date) (unknown) [facility]) Result panel 737 (unknown) (no date) (unknown) [facility]) Result panel 738 (unknown) (no date) (unknown[facility]) Result panel 739 (unknown) (no date) (unknown) [facility] Result panel 740 (unknown) (no date) (unknown) [facility]) Result panel 741 (unknown) (no date) (unknown) [facility]) Result panel 742 (unknown) (no date) (unknown) [facility]) Result panel 743 (unknown) (no date) (unknown) [facility]) Result panel 744 (unknown) (no date) (unknown) [facility]) Result panel 745 (unknown) (no date) (unknown) [facility]) Result panel 746 (unknown) (no date) (unknown) [facility]) Result panel 747 (unknown) (no date) (unknown) [facility]) Result panel 748 (unknown) (no date) (unknown) [facility]) Result panel 749 (unknown) (no date) (unknown) [facility]) Result panel 750 (unknown) (no date) (unknown[facility]) Result panel 751 (unknown) (no date) (unknown) [facility] Result panel 752 (unknown) (no date) (unknown) [facility]) Result panel 753 (unknown) (no date) (unknown) [facility]) Result panel 754 (unknown) (no date) (unknown) [facility]) Result panel 755 (unknown) (no date) (unknown) [facility]) Result panel 756 (unknown) (no date) (unknown) [facility]) Result panel 757 (unknown) (no date) (unknown) [facility]) Result panel 758 (unknown) (no date) (unknown) [facility]) Result panel 759 (unknown) (no date) (unknown) [facility]) Result panel 760 (unknown) (no date) (unknown) [facility]) Result panel 761 (unknown) (no date) (unknown) [facility] Result panel 762 (unknown) (no date) (unknown) [facility]) Result panel 763 (unknown) (no date) (unknown[facility] Result panel 764 (unknown) (no date) (unknown) [facility]) Result panel 765 (unknown) (no date) (unknown) [facility]) Result panel 766 (unknown) (no date) (unknown) [facility]) Result panel 767 (unknown) (no date) (unknown) [facility]) Result panel 768 (unknown) (no date) (unknown) [facility]) Result panel 769 (unknown) (no date) (unknown) [facility]) Result panel 770 (unknown) (no date) (unknown) [facility]) Result panel 771 (unknown) (no date) (unknown) [facility]) Result panel 772 (unknown) (no date) (unknown) [facility] Result panel 773 (unknown) (no date) (unknown) [facility]) Result panel 774 (unknown) (no date) (unknown) [facility]) Result panel 775 (unknown) (no date) (unknown) [facility]) Result panel 776 (unknown) (no date) (unknown) [facility]) Result panel 777 (unknown) (no date) (unknown) [facility]) Result panel 778 (unknown) (no date) (unknown) [facility]) Result panel 779 (unknown) (no date) (unknown) [facility]) Result panel 780 (unknown) (no date) (unknown[facility]) Result panel 781 (unknown) (no date) (unknown) [facility]) Result panel 782 (unknown) (no date) (unknown) [facility]) Result panel 783 (unknown) (no date) (unknown) [facility]) Result panel 784 (unknown) (no date) (unknown) [facility]) Result panel 785 (unknown) (no date) (unknown) [facility]) Result panel 786 (unknown) (no date) (unknown) [facility]) Result panel 787 (unknown) (no date) (unknown) [facility]) Result panel 788 (unknown) (no date) (unknown) [facility]) Result panel 789 (unknown) (no date) (unknown) [facility]) Result panel 790 (unknown) (no date) (unknown) [facility]) Result panel 791 (unknown) (no date) (unknown) [facility]) Result panel 792 (unknown) (no date) (unknown) [facility]) Result panel 793 (unknown) (no date) (unknown) [facility]) Result panel 794 (unknown) (no date) (unknown) [facility]) Result panel 795 (unknown) (no date) (unknown) [facility]) Result panel 796 (unknown) (no date) (unknown) [facility]) Result panel 797 (unknown) (no date) (unknown) [facility]) Result panel 798 (unknown) (no date) (unknown) [facility]) Result panel 799 (unknown) (no date) (unknown) [facility]) Result panel 800 (unknown) (no date) (unknown) [facility]) Result panel 801 (unknown) (no date) (unknown) [facility]) Result panel 802 (unknown) (no date) (unknown) [facility]) Result panel 803 (unknown) (no date) (unknown) [facility]) Result panel 804 (unknown) (no date) (unknown) [facility]) Result panel 805 (unknown) (no date) (unknown) [facility]) Result panel 806 (unknown) (no date) (unknown) [facility]) Result panel 807 (unknown) (no date) (unknown) [facility]) Result panel 808 (unknown) (no date) (unknown) [facility]) Result panel 809 (unknown) (no date) (unknown) [facility]) Result panel 810 (unknown) (no date) (unknown) [facility]) Result panel 811 (unknown) (no date) (unknown) [facility]) Result panel 812 (unknown) (no date) (unknown) [facility]) Result panel 813 (unknown) (no date) (unknown) [facility]) Result panel 814 (unknown) (no date) (unknown) [facility]) Result panel 815 (unknown) (no date) (unknown) [facility]) Result panel 816 (unknown) (no date) (unknown) [facility]) Result panel 817 (unknown) (no date) (unknown) [facility]) Result panel 818 (unknown) (no date) (unknown) [facility]) Result panel 819 (unknown) (no date) (unknown) [facility]) Result panel 820 (unknown) (no date) (unknown) [facility]) Result panel 821 (unknown) (no date) (unknown) [facility]) Result panel 822 (unknown) (no date) (unknown) [facility]) Result panel 823 (unknown) (no date) (unknown) [facility]) Result panel 824 (unknown) (no date) (unknown) [facility]) Result panel 825 (unknown) (no date) (unknown) [facility]) Result panel 826 (unknown) (no date) (unknown) [facility]) Result panel 827 (unknown) (no date) (unknown) [facility]) Result panel 828 (unknown) (no date) (unknown) [facility]) Result panel 829 (unknown) (no date) (unknown) [facility]) Result panel 830 (unknown) (no date) (unknown) [facility]) Result panel 831 (unknown) (no date) (unknown) [facility]) Result panel 832 (unknown) (no date) (unknown) [facility]) Result panel 833 (unknown) (no date) (unknown) [facility]) Result panel 834 (unknown) (no date) (unknown) [facility]) Result panel 835 (unknown) (no date) (unknown) [facility]) Result panel 836 (unknown) (no date) (unknown) [facility]) Result panel 837 (unknown) (no date) (unknown) [facility]) Result panel 838 (unknown) (no date) (unknown) [facility]) Result panel 839 (unknown) (no date) (unknown) [facility]) Result panel 840 (unknown) (no date) (unknown) [facility]) Result panel 841 (unknown) (no date) (unknown) [facility]) Result panel 842 (unknown) (no date) (unknown) [facility]) Result panel 843 (unknown) (no date) (unknown) [facility]) Result panel 844 (unknown) (no date) (unknown) [facility]) Result panel 845 (unknown) (no date) (unknown) [facility]) Result panel 846 (unknown) (no date) (unknown) [facility]) Result panel 847 (unknown) (no date) (unknown) [facility]) Result panel 848 (unknown) (no date) (unknown) [facility]) Result panel 849 (unknown) (no date) (unknown) [facility]) Result panel 850 (unknown) (no date) (unknown) [facility]) Result panel 851 (unknown) (no date) (unknown) [facility]) Result panel 852 (unknown) (no date) (unknown) [facility]) Result panel 853 (unknown) (no date) (unknown) [facility]) Result panel 854 (unknown) (no date) (unknown) [facility]) Result panel 855 (unknown) (no date) (unknown) [facility]) Result panel 856 (unknown) (no date) (unknown) [facility]) Result panel 857 (unknown) (no date) (unknown) [facility]) Result panel 858 (unknown) (no date) (unknown) [facility]) Result panel 859 (unknown) (no date) (unknown) [facility]) Result panel 860 (unknown) (no date) (unknown) [facility]) Result panel 861 (unknown) (no date) (unknown) [facility]) Result panel 862 (unknown) (no date) (unknown) [facility]) Result panel 863 (unknown) (no date) (unknown) [facility]) Result panel 864 (unknown) (no date) (unknown) [facility]) Result panel 865 (unknown) (no date) (unknown) [facility]) Result panel 866 (unknown) (no date) (unknown) [facility]) Result panel 867 (unknown) (no date) (unknown) [facility]) Result panel 868 (unknown) (no date) (unknown) [facility]) Result panel 869 (unknown) (no date) (unknown) [facility]) Result panel 870 (unknown) (no date) (unknown) [facility]) Result panel 871 (unknown) (no date) (unknown) [facility]) Result panel 872 (unknown) (no date) (unknown) [facility]) Result panel 873 (unknown) (no date) (unknown) [facility]) Result panel 874 (unknown) (no date) (unknown) [facility]) Result panel 875 (unknown) (no date) (unknown) [facility]) Result panel 876 (unknown) (no date) (unknown) [facility]) Result panel 877 (unknown) (no date) (unknown) [facility]) Result panel 878 (unknown) (no date) (unknown) [facility]) Result panel 879 (unknown) (no date) (unknown) [facility]) Result panel 880 (unknown) (no date) (unknown) [facility]) Result panel 881 (unknown) (no date) (unknown) [facility]) Result panel 882 (unknown) (no date) (unknown) [facility]) Result panel 883 (unknown) (no date) (unknown) [facility]) Result panel 884 (unknown) (no date) (unknown) [facility]) Result panel 885 (unknown) (no date) (unknown) [facility]) Result panel 886 (unknown) (no date) (unknown) [facility]) Result panel 887 (unknown) (no date) (unknown) [facility]) Result panel 888 (unknown) (no date) (unknown) [facility]) Result panel 889 (unknown) (no date) (unknown) [facility]) Result panel 890 (unknown) (no date) (unknown) [facility]) Result panel 891 (unknown) (no date) (unknown) [facility]) Result panel 892 (unknown) (no date) (unknown) [facility]) Result panel 893 (unknown) (no date) (unknown) [facility]) Result panel 894 (unknown) (no date) (unknown) [facility]) Result panel 895 (unknown) (no date) (unknown) [facility]) Result panel 896 (unknown) (no date) (unknown) [facility]) Result panel 897 (unknown) (no date) (unknown) [facility]) Result panel 898 (unknown) (no date) (unknown) [facility]) Result panel 899 (unknown) (no date) (unknown) [facility]) Result panel 900 (unknown) (no date) (unknown) [facility]) Result panel 901 (unknown) (no date) (unknown) [facility]) Result panel 902 (unknown) (no date) (unknown) [facility]) Result panel 903 (unknown) (no date) (unknown) [facility]) Result panel 904 (unknown) (no date) (unknown) [facility]) Result panel 905 (unknown) (no date) (unknown) [facility]) Result panel 906 (unknown) (no date) (unknown) [facility]) Result panel 907 (unknown) (no date) (unknown) [facility]) Result panel 908 (unknown) (no date) (unknown) [facility]) Result panel 909 (unknown) (no date) (unknown) [facility]) Result panel 910 (unknown) (no date) (unknown) [facility]) Result panel 911 (unknown) (no date) (unknown) [facility]) Result panel 912 (unknown) (no date) (unknown) [facility]) Result panel 913 (unknown) (no date) (unknown) [facility]) Result panel 914 (unknown) (no date) (unknown) [facility]) Result panel 915 (unknown) (no date) (unknown) [facility]) Result panel 916 (unknown) (no date) (unknown) [facility]) Result panel 917 (unknown) (no date) (unknown) [facility]) Result panel 918 (unknown) (no date) (unknown) [facility]) Result panel 919 (unknown) (no date) (unknown) [facility]) Result panel 920 (unknown) (no date) (unknown) [facility]) Result panel 921 (unknown) (no date) (unknown) [facility]) Result panel 922 (unknown) (no date) (unknown) [facility]) Result panel 923 (unknown) (no date) (unknown) [facility]) Result panel 924 (unknown) (no date) (unknown) [facility]) Result panel 925 (unknown) (no date) (unknown) [facility]) Result panel 926 (unknown) (no date) (unknown) [facility]) Result panel 927 (unknown) (no date) (unknown) [facility]) Result panel 928 (unknown) (no date) (unknown) [facility]) Result panel 929 (unknown) (no date) (unknown) [facility]) Result panel 930 (unknown) (no date) (unknown) [facility]) Result panel 931 (unknown) (no date) (unknown) [facility]) Result panel 932 (unknown) (no date) (unknown) [facility]) Result panel 933 (unknown) (no date) (unknown) [facility]) Result panel 934 (unknown) (no date) (unknown) [facility]) Result panel 935 (unknown) (no date) (unknown) [facility]) Result panel 936 (unknown) (no date) (unknown) [facility]) Result panel 937 (unknown) (no date) (unknown) [facility] [facility] Result panel 938 (unknown) (no date) (unknown) [facility]) Result panel 939 (unknown) (no date) (unknown) [facility]) Result panel 940 (unknown) (no date) (unknown) [facility] Result panel 941 (unknown) (no date) (unknown) [facility]) Result panel 942 (unknown) (no date) (unknown) [facility]) Result panel 943 (unknown) (no date) (unknown) [facility]) Result panel 944 (unknown) (no date) (unknown) [facility]) Result panel 945 (unknown) (no date) (unknown) [facility]) Result panel 946 (unknown) (no date) (unknown) [facility]) Result panel 947 (unknown) (no date) (unknown) [facility]) Result panel 948 (unknown) (no date) (unknown) [facility]) Result panel 949 (unknown) (no date) (unknown) [facility]) Result panel 950 (unknown) (no date) (unknown) [facility]) Result panel 951 (unknown) (no date) (unknown) [facility]) Result panel 952 (unknown) (no date) (unknown[facility]) Result panel 953 (unknown) (no date) (unknown) [facility]) Result panel 954 (unknown) (no date) (unknown) [facility]) Result panel 955 (unknown) (no date) (unknown) [facility]) Result panel 956 (unknown) (no date) (unknown) [facility]) Result panel 957 (unknown) (no date) (unknown) [facility]) Result panel 958 (unknown) (no date) (unknown[facility]) Result panel 959 (unknown) (no date) (unknown) [facility]) Result panel 960 (unknown) (no date) (unknown) [facility]) Result panel 961 (unknown) (no date) (unknown) [facility]) Result panel 962 (unknown) (no date) (unknown[facility]) Result panel 963 (unknown) (no date) (unknown) [facility]) Result panel 964 (unknown) (no date) (unknown[facility]) Result panel 965 (unknown) (no date) (unknown) [facility]) Result panel 966 (unknown) (no date) (unknown) [facility]) Result panel 967 (unknown) (no date) (unknown) [facility]) Result panel 968 (unknown) (no date) (unknown[facility]) Result panel 969 (unknown) (no date) (unknown) [facility]) Result panel 970 (unknown) (no date) (unknown) [facility]) Result panel 971 (unknown) (no date) (unknown) [facility]) Result panel 972 (unknown) (no date) (unknown) [facility]) Result panel 973 (unknown) (no date) (unknown) [facility]) Result panel 974 (unknown) (no date) (unknown) [facility]) Result panel 975 (unknown) (no date) (unknown) [facility]) Result panel 976 (unknown) (no date) (unknown) [facility]) Result panel 977 (unknown) (no date) (unknown) [facility]) Result panel 978 (unknown) (no date) (unknown) [facility]) Result panel 979 (unknown) (no date) (unknown) [facility]) Result panel 980 (unknown) (no date) (unknown) [facility]) Result panel 981 (unknown) (no date) (unknown) [facility]) Result panel 982 (unknown) (no date) (unknown) [facility]) Result panel 983 (unknown) (no date) (unknown) [facility]) Result panel 984 (unknown) (no date) (unknown) [facility]) Result panel 985 (unknown) (no date) (unknown) [facility]) Result panel 986 (unknown) (no date) (unknown) [facility]) Result panel 987 (unknown) (no date) (unknown) [facility]) Result panel 988 (unknown) (no date) (unknown) [facility]) Result panel 989 (unknown) (no date) (unknown) [facility]) Result panel 990 (unknown) (no date) (unknown) [facility]) Result panel 991 (unknown) (no date) (unknown) [facility]) Result panel 992 (unknown) (no date) (unknown) [facility]) Result panel 993 (unknown) (no date) (unknown) [facility]) Result panel 994 (unknown) (no date) (unknown) [facility]) Result panel 995 (unknown) (no date) (unknown) [facility]) Result panel 996 (unknown) (no date) (unknown) [facility]) Result panel 997 (unknown) (no date) (unknown) [facility]) Result panel 998 (unknown) (no date) (unknown) [facility]) Result panel 999 (unknown) (no date) (unknown) [facility]) Result panel 1000 (unknown) (no date) (unknown) [facility]) Result panel 1001 (unknown) (no date) (unknown) [facility]) Result panel 1002 (unknown) (no date) (unknown) [facility]) Result panel 1003 (unknown) (no date) (unknown) [facility]) Result panel 1004 (unknown) (no date) (unknown) [facility]) Result panel 1005 (unknown) (no date) (unknown) [facility]) Result panel 1006 (unknown) (no date) (unknown) [facility]) Result panel 1007 (unknown) (no date) (unknown) [facility]) Result panel 1008 (unknown) (no date) (unknown) [facility]) Result panel 1009 (unknown) (no date) (unknown) [facility]) Result panel 1010 (unknown) (no date) (unknown) [facility]) Result panel 1011 (unknown) (no date) (unknown) [facility]) Result panel 1012 (unknown) (no date) (unknown) [facility]) Result panel 1013 (unknown) (no date) (unknown) [facility]) Result panel 1014 (unknown) (no date) (unknown) [facility]) Result panel 1015 (unknown) (no date) (unknown) [facility]) Result panel 1016 (unknown) (no date) (unknown) [facility]) Result panel 1017 (unknown) (no date) (unknown) [facility]) Result panel 1018 (unknown) (no date) (unknown) [facility]) Result panel 1019 (unknown) (no date) (unknown) [facility]) Result panel 1020 (unknown) (no date) (unknown) [facility]) Result panel 1021 (unknown) (no date) (unknown) [facility]) Result panel 1022 (unknown) (no date) (unknown) [facility]) Result panel 1023 (unknown) (no date) (unknown) [facility]) Result panel 1024 (unknown) (no date) (unknown) [facility]) Result panel 1025 (unknown) (no date) (unknown) [facility]) Result panel 1026 (unknown) (no date) (unknown) [facility]) Result panel 1027 (unknown) (no date) (unknown) [facility]) Result panel 1028 (unknown) (no date) (unknown) [facility]) Result panel 1029 (unknown) (no date) (unknown) [facility]) Result panel 1030 (unknown) (no date) (unknown) [facility]) Result panel 1031 (unknown) (no date) (unknown) [facility]) Result panel 1032 (unknown) (no date) (unknown) [facility]) Result panel 1033 (unknown) (no date) (unknown) [facility]) Result panel 1034 (unknown) (no date) (unknown) [facility]) Result panel 1035 (unknown) (no date) (unknown) [facility]) Result panel 1036 (unknown) (no date) (unknown) [facility]) Result panel 1037 (unknown) (no date) (unknown) [facility]) Result panel 1038 (unknown) (no date) (unknown) [facility]) Result panel 1039 (unknown) (no date) (unknown) [facility]) Result panel 1040 (unknown) (no date) (unknown) [facility]) Result panel 1041 (unknown) (no date) (unknown) [facility]) Result panel 1042 (unknown) (no date) (unknown) [facility]) Result panel 1043 (unknown) (no date) (unknown) [facility]) Result panel 1044 (unknown) (no date) (unknown) [facility]) Result panel 1045 (unknown) (no date) (unknown) [facility]) Result panel 1046 (unknown) (no date) (unknown) [facility]) Result panel 1047 (unknown) (no date) (unknown) [facility]) Result panel 1048 (unknown) (no date) (unknown) [facility]) Result panel 1049 (unknown) (no date) (unknown) [facility]) Result panel 1050 (unknown) (no date) (unknown) [facility]) Result panel 1051 (unknown) (no date) (unknown) [facility]) Result panel 1052 (unknown) (no date) (unknown) [facility]) Result panel 1053 (unknown) (no date) (unknown) [facility]) Result panel 1054 (unknown) (no date) (unknown) [facility]) Result panel 1055 (unknown) (no date) (unknown) [facility]) Result panel 1056 (unknown) (no date) (unknown) [facility]) Result panel 1057 (unknown) (no date) (unknown) [facility]) Result panel 1058 (unknown) (no date) (unknown) [facility]) Result panel 1059 (unknown) (no date) (unknown) [facility]) Result panel 1060 (unknown) (no date) (unknown) [facility]) Result panel 1061 (unknown) (no date) (unknown) [facility]) Result panel 1062 (unknown) (no date) (unknown) [facility]) Result panel 1063 (unknown) (no date) (unknown) [facility]) Result panel 1064 (unknown) (no date) (unknown) [facility]) Result panel 1065 (unknown) (no date) (unknown) [facility]) Result panel 1066 (unknown) (no date) (unknown) [facility]) Result panel 1067 (unknown) (no date) (unknown) [facility]) Result panel 1068 (unknown) (no date) (unknown) [facility]) Result panel 1069 (unknown) (no date) (unknown) [facility]) Result panel 1070 (unknown) (no date) (unknown) [facility]) Result panel 1071 (unknown) (no date) (unknown) [facility]) Result panel 1072 (unknown) (no date) (unknown) [facility]) Result panel 1073 (unknown) (no date) (unknown) [facility]) Result panel 1074 (unknown) (no date) (unknown) [facility]) Result panel 1075 (unknown) (no date) (unknown) [facility]) Result panel 1076 (unknown) (no date) (unknown) [facility]) Result panel 1077 (unknown) (no date) (unknown) [facility]) Result panel 1078 (unknown) (no date) (unknown) [facility]) Result panel 1079 (unknown) (no date) (unknown) [facility]) Result panel 1080 (unknown) (no date) (unknown) [facility]) Result panel 1081 (unknown) (no date) (unknown) [facility]) Result panel 1082 (unknown) (no date) (unknown) [facility]) Result panel 1083 (unknown) (no date) (unknown) [facility]) Result panel 1084 (unknown) (no date) (unknown) [facility]) Result panel 1085 (unknown) (no date) (unknown) [facility]) Result panel 1086 (unknown) (no date) (unknown) [facility]) Result panel 1087 (unknown) (no date) (unknown) [facility]) Result panel 1088 (unknown) (no date) (unknown) [facility]) Result panel 1089 (unknown) (no date) (unknown) [facility]) Result panel 1090 (unknown) (no date) (unknown) [facility]) Result panel 1091 (unknown) (no date) (unknown) [facility]) Result panel 1092 (unknown) (no date) (unknown) [facility]) Result panel 1093 (unknown) (no date) (unknown) [facility]) Result panel 1094 (unknown) (no date) (unknown) [facility]) Result panel 1095 (unknown) (no date) (unknown) [facility]) Result panel 1096 (unknown) (no date) (unknown) [facility]) Result panel 1097 (unknown) (no date) (unknown) [facility]) Result panel 1098 (unknown) (no date) (unknown) [facility]) Result panel 1099 (unknown) (no date) (unknown) [facility]) Result panel 1100 (unknown) (no date) (unknown) [facility]) Result panel 1101 (unknown) (no date) (unknown) [facility]) Result panel 1102 (unknown) (no date) (unknown) [facility]) Result panel 1103 (unknown) (no date) (unknown) [facility]) Result panel 1104 (unknown) (no date) (unknown) [facility]) Result panel 1105 (unknown) (no date) (unknown) [facility]) Result panel 1106 (unknown) (no date) (unknown) [facility]) Result panel 1107 (unknown) (no date) (unknown) [facility]) Result panel 1108 (unknown) (no date) (unknown) [facility]) Result panel 1109 (unknown) (no date) (unknown) [facility]) Result panel 1110 (unknown) (no date) (unknown) [facility]) Result panel 1111 (unknown) (no date) (unknown) [facility]) Result panel 1112 (unknown) (no date) (unknown) [facility]) Result panel 1113 (unknown) (no date) (unknown) [facility]) Result panel 1114 (unknown) (no date) (unknown) [facility]) Result panel 1115 (unknown) (no date) (unknown) [facility]) Result panel 1116 (unknown) (no date) (unknown) [facility]) Result panel 1117 (unknown) (no date) (unknown) [facility]) Result panel 1118 (unknown) (no date) (unknown) [facility]) Result panel 1119 (unknown) (no date) (unknown) [facility]) Result panel 1120 (unknown) (no date) (unknown) [facility]) Result panel 1121 (unknown) (no date) (unknown) [facility]) Result panel 1122 (unknown) (no date) (unknown) [facility]) Result panel 1123 (unknown) (no date) (unknown) [facility]) Result panel 1124 (unknown) (no date) (unknown) [facility]) Result panel 1125 (unknown) (no date) (unknown) [facility]) Result panel 1126 (unknown) (no date) (unknown) [facility]) Result panel 1127 (unknown) (no date) (unknown) [facility]) Result panel 1128 (unknown) (no date) (unknown) [facility]) Result panel 1129 (unknown) (no date) (unknown) [facility]) Result panel 1130 (unknown) (no date) (unknown) [facility]) Result panel 1131 (unknown) (no date) (unknown) [facility]) Result panel 1132 (unknown) (no date) (unknown) [facility]) Result panel 1133 (unknown) (no date) (unknown) [facility]) Result panel 1134 (unknown) (no date) (unknown) [facility]) Result panel 1135 (unknown) (no date) (unknown) [facility]) Result panel 1136 (unknown) (no date) (unknown) [facility]) Result panel 1137 (unknown) (no date) (unknown) [facility]) Result panel 1138 (unknown) (no date) (unknown) [facility]) Result panel 1139 (unknown) (no date) (unknown) [facility]) Result panel 1140 (unknown) (no date) (unknown) [facility]) Result panel 1141 (unknown) (no date) (unknown) [facility]) Result panel 1142 (unknown) (no date) (unknown) [facility]) Result panel 1143 (unknown) (no date) (unknown) [facility]) Result panel 1144 (unknown) (no date) (unknown) [facility]) Result panel 1145 (unknown) (no date) (unknown) [facility]) Result panel 1146 (unknown) (no date) (unknown) [facility]) Result panel 1147 (unknown) (no date) (unknown) [facility]) Result panel 1148 (unknown) (no date) (unknown) [facility]) Result panel 1149 (unknown) (no date) (unknown) [facility]) Result panel 1150 (unknown) (no date) (unknown) [facility]) Result panel 1151 (unknown) (no date) (unknown) [facility]) Result panel 1152 (unknown) (no date) (unknown) [facility]) Result panel 1153 (unknown) (no date) (unknown) [facility]) Result panel 1154 (unknown) (no date) (unknown) [facility]) Result panel 1155 (unknown) (no date) (unknown) [facility]) Result panel 1156 (unknown) (no date) (unknown) [facility]) Result panel 1157 (unknown) (no date) (unknown) [facility]) Result panel 1158 (unknown) (no date) (unknown) [facility]) Result panel 1159 (unknown) (no date) (unknown) [facility]) Result panel 1160 (unknown) (no date) (unknown) [facility]) Result panel 1161 (unknown) (no date) (unknown) [facility]) Result panel 1162 (unknown) (no date) (unknown) [facility]) Result panel 1163 (unknown) (no date) (unknown) [facility]) Result panel 1164 (unknown) (no date) (unknown) [facility]) Result panel 1165 (unknown) (no date) (unknown) [facility]) Result panel 1166 (unknown) (no date) (unknown) [facility]) Result panel 1167 (unknown) (no date) (unknown) [facility]) Result panel 1168 (unknown) (no date) (unknown) [facility]) Result panel 1169 (unknown) (no date) (unknown) [facility]) Result panel 1170 (unknown) (no date) (unknown) [facility]) Result panel 1171 (unknown) (no date) (unknown) [facility]) Result panel 1172 (unknown) (no date) (unknown) [facility]) Result panel 1173 (unknown) (no date) (unknown) [facility] [facility] Result panel 1174 (unknown) (no date) (unknown) [facility]) Result panel 1175 (unknown) (no date) (unknown) [facility] Result panel 1176 (unknown) (no date) (unknown) [facility]) Result panel 1177 (unknown) (no date) (unknown) [facility]) Result panel 1178 (unknown) (no date) (unknown) [facility]) Result panel 1179 (unknown) (no date) (unknown) [facility]) Result panel 1180 (unknown) (no date) (unknown) [facility]) Result panel 1181 (unknown) (no date) (unknown) [facility]) Result panel 1182 (unknown) (no date) (unknown) [facility]) Result panel 1183 (unknown) (no date) (unknown[facility] Result panel 1184 (unknown) (no date) (unknown) [facility]) Result panel 1185 (unknown) (no date) (unknown) [facility]) Result panel 1186 (unknown) (no date) (unknown) [facility]) Result panel 1187 (unknown) (no date) (unknown) [facility]) Result panel 1188 (unknown) (no date) (unknown) [facility] Result panel 1189 (unknown) (no date) (unknown) [facility]) Result panel 1190 (unknown) (no date) (unknown) [facility]) Result panel 1191 (unknown) (no date) (unknown) [facility]) Result panel 1192 (unknown) (no date) (unknown) [facility]) Result panel 1193 (unknown) (no date) (unknown) [facility]) Result panel 1194 (unknown) (no date) (unknown) [facility]) Result panel 1195 (unknown) (no date) (unknown) [facility] Result panel 1196 (unknown) (no date) (unknown) [facility] Result panel 1197 (unknown) (no date) (unknown) [facility]) Result panel 1198 (unknown) (no date) (unknown[facility]) Result panel 1199 (unknown) (no date) (unknown) [facility]) Result panel 1200 (unknown) (no date) (unknown) [facility] Result panel 1201 (unknown) (no date) (unknown) [facility] Result panel 1202 (unknown) (no date) (unknown[facility]) Result panel 1203 (unknown) (no date) (unknown) [facility]) Result panel 1204 (unknown) (no date) (unknown) [facility]) Result panel 1205 (unknown) (no date) (unknown) [facility]) Result panel 1206 (unknown) (no date) (unknown[facility]) Result panel 1207 (unknown) (no date) (unknown) [facility]) Result panel 1208 (unknown) (no date) (unknown[facility]) Result panel 1209 (unknown) (no date) (unknown) [facility]) Result panel 1210 (unknown) (no date) (unknown) [facility]) Result panel 1211 (unknown) (no date) (unknown) [facility]) Result panel 1212 (unknown) (no date) (unknown[facility]) Result panel 1213 (unknown) (no date) (unknown) [facility]) Result panel 1214 (unknown) (no date) (unknown[facility]) Result panel 1215 (unknown) (no date) (unknown) [facility]) Result panel 1216 (unknown) (no date) (unknown) [facility]) Result panel 1217 (unknown) (no date) (unknown) [facility] Result panel 1218 (unknown) (no date) (unknown[facility]) Result panel 1219 (unknown) (no date) (unknown) [facility] Result panel 1220 (unknown) (no date) (unknown) [facility]) Result panel 1221 (unknown) (no date) (unknown[facility]) Result panel 1222 (unknown) (no date) (unknown) [facility]) Result panel 1223 (unknown) (no date) (unknown) [facility] Result panel 1224 (unknown) (no date) (unknown) [facility]) Result panel 1225 (unknown) (no date) (unknown) [facility]) Result panel 1226 (unknown) (no date) (unknown) [facility]) Result panel 1227 (unknown) (no date) (unknown) [facility]) Result panel 1228 (unknown) (no date) (unknown) [facility]) Result panel 1229 (unknown) (no date) (unknown) [facility]) Result panel 1230 (unknown) (no date) (unknown[facility] Result panel 1231 (unknown) (no date) (unknown) [facility]) Result panel 1232 (unknown) (no date) (unknown) [facility]) Result panel 1233 (unknown) (no date) (unknown) [facility]) Result panel 1234 (unknown) (no date) (unknown) [facility]) Result panel 1235 (unknown) (no date) (unknown) [facility] Result panel 1236 (unknown) (no date) (unknown) [facility]) Result panel 1237 (unknown) (no date) (unknown) [facility]) Result panel 1238 (unknown) (no date) (unknown) [facility]) Result panel 1239 (unknown) (no date) (unknown) [facility]) Result panel 1240 (unknown) (no date) (unknown) [facility]) Result panel 1241 (unknown) (no date) (unknown) [facility]) Result panel 1242 (unknown) (no date) (unknown) [facility]) Result panel 1243 (unknown) (no date) (unknown) [facility]) Result panel 1244 (unknown) (no date) (unknown) [facility]) Result panel 1245 (unknown) (no date) (unknown) [facility]) Result panel 1246 (unknown) (no date) (unknown) [facility]) Result panel 1247 (unknown) (no date) (unknown) [facility]) Result panel 1248 (unknown) (no date) (unknown) [facility]) Result panel 1249 (unknown) (no date) (unknown) [facility]) Result panel 1250 (unknown) (no date) (unknown) [facility]) Result panel 1251 (unknown) (no date) (unknown) [facility]) Result panel 1252 (unknown) (no date) (unknown) [facility]) Result panel 1253 (unknown) (no date) (unknown) [facility]) Result panel 1254 (unknown) (no date) (unknown) [facility]) Result panel 1255 (unknown) (no date) (unknown) [facility]) Result panel 1256 (unknown) (no date) (unknown) [facility]) Result panel 1257 (unknown) (no date) (unknown) [facility]) Result panel 1258 (unknown) (no date) (unknown) [facility]) Result panel 1259 (unknown) (no date) (unknown) [facility]) Result panel 1260 (unknown) (no date) (unknown) [facility]) Result panel 1261 (unknown) (no date) (unknown) [facility]) Result panel 1262 (unknown) (no date) (unknown) [facility]) Result panel 1263 (unknown) (no date) (unknown) [facility]) Result panel 1264 (unknown) (no date) (unknown) [facility]) Result panel 1265 (unknown) (no date) (unknown) [facility]) Result panel 1266 (unknown) (no date) (unknown) [facility]) Result panel 1267 (unknown) (no date) (unknown) [facility]) Result panel 1268 (unknown) (no date) (unknown) [facility]) Result panel 1269 (unknown) (no date) (unknown) [facility]) Result panel 1270 (unknown) (no date) (unknown) [facility]) Result panel 1271 (unknown) (no date) (unknown) [facility]) Result panel 1272 (unknown) (no date) (unknown) [facility]) Result panel 1273 (unknown) (no date) (unknown) [facility]) Result panel 1274 (unknown) (no date) (unknown) [facility]) Result panel 1275 (unknown) (no date) (unknown) [facility]) Result panel 1276 (unknown) (no date) (unknown[facility]) Result panel 1277 (unknown) (no date) (unknown) [facility]) Result panel 1278 (unknown) (no date) (unknown) [facility]) Result panel 1279 (unknown) (no date) (unknown) [facility]) Result panel 1280 (unknown) (no date) (unknown) [facility]) Result panel 1281 (unknown) (no date) (unknown) [facility]) Result panel 1282 (unknown) (no date) (unknown) [facility]) Result panel 1283 (unknown) (no date) (unknown) [facility]) Result panel 1284 (unknown) (no date) (unknown) [facility]) Result panel 1285 (unknown) (no date) (unknown) [facility]) Result panel 1286 (unknown) (no date) (unknown) [facility]) Result panel 1287 (unknown) (no date) (unknown) [facility]) Result panel 1288 (unknown) (no date) (unknown) [facility]) Result panel 1289 (unknown) (no date) (unknown) [facility]) Result panel 1290 (unknown) (no date) (unknown) [facility]) Result panel 1291 (unknown) (no date) (unknown) [facility]) Result panel 1292 (unknown) (no date) (unknown) [facility]) Result panel 1293 (unknown) (no date) (unknown) [facility]) Result panel 1294 (unknown) (no date) (unknown) [facility]) Result panel 1295 (unknown) (no date) (unknown) [facility]) Result panel 1296 (unknown) (no date) (unknown) [facility]) Result panel 1297 (unknown) (no date) (unknown) [facility]) Result panel 1298 (unknown) (no date) (unknown) [facility]) Result panel 1299 (unknown) (no date) (unknown) [facility]) Result panel 1300 (unknown) (no date) (unknown) [facility]) Result panel 1301 (unknown) (no date) (unknown) [facility]) Result panel 1302 (unknown) (no date) (unknown) [facility]) Result panel 1303 (unknown) (no date) (unknown) [facility]) Result panel 1304 (unknown) (no date) (unknown) [facility]) Result panel 1305 (unknown) (no date) (unknown) [facility]) Result panel 1306 (unknown) (no date) (unknown) [facility]) Result panel 1307 (unknown) (no date) (unknown) [facility]) Result panel 1308 (unknown) (no date) (unknown) [facility]) Result panel 1309 (unknown) (no date) (unknown) [facility]) Result panel 1310 (unknown) (no date) (unknown) [facility]) Result panel 1311 (unknown) (no date) (unknown) [facility]) Result panel 1312 (unknown) (no date) (unknown) [facility]) Result panel 1313 (unknown) (no date) (unknown) [facility]) Result panel 1314 (unknown) (no date) (unknown) [facility]) Result panel 1315 (unknown) (no date) (unknown) [facility]) Result panel 1316 (unknown) (no date) (unknown) [facility]) Result panel 1317 (unknown) (no date) (unknown) [facility]) Result panel 1318 (unknown) (no date) (unknown) [facility]) Result panel 1319 (unknown) (no date) (unknown) [facility]) Result panel 1320 (unknown) (no date) (unknown) [facility]) Result panel 1321 (unknown) (no date) (unknown) [facility]) Result panel 1322 (unknown) (no date) (unknown) [facility]) Result panel 1323 (unknown) (no date) (unknown) [facility]) Result panel 1324 (unknown) (no date) (unknown) [facility]) Result panel 1325 (unknown) (no date) (unknown) [facility]) Result panel 1326 (unknown) (no date) (unknown) [facility]) Result panel 1327 (unknown) (no date) (unknown) [facility]) Result panel 1328 (unknown) (no date) (unknown) [facility]) Result panel 1329 (unknown) (no date) (unknown) [facility]) Result panel 1330 (unknown) (no date) (unknown) [facility]) Result panel 1331 (unknown) (no date) (unknown) [facility]) Result panel 1332 (unknown) (no date) (unknown) [facility]) Result panel 1333 (unknown) (no date) (unknown) [facility]) Result panel 1334 (unknown) (no date) (unknown) [facility]) Result panel 1335 (unknown) (no date) (unknown) [facility]) Result panel 1336 (unknown) (no date) (unknown) [facility]) Result panel 1337 (unknown) (no date) (unknown) [facility]) Result panel 1338 (unknown) (no date) (unknown) [facility]) Result panel 1339 (unknown) (no date) (unknown) [facility]) Result panel 1340 (unknown) (no date) (unknown) [facility]) Result panel 1341 (unknown) (no date) (unknown) [facility]) Result panel 1342 (unknown) (no date) (unknown) [facility]) Result panel 1343 (unknown) (no date) (unknown) [facility]) Result panel 1344 (unknown) (no date) (unknown) [facility]) Result panel 1345 (unknown) (no date) (unknown) [facility]) Result panel 1346 (unknown) (no date) (unknown) [facility]) Result panel 1347 (unknown) (no date) (unknown) [facility]) Result panel 1348 (unknown) (no date) (unknown) [facility]) Result panel 1349 (unknown) (no date) (unknown) [facility]) Result panel 1350 (unknown) (no date) (unknown) [facility]) Result panel 1351 (unknown) (no date) (unknown) [facility]) Result panel 1352 (unknown) (no date) (unknown) [facility]) Result panel 1353 (unknown) (no date) (unknown) [facility]) Result panel 1354 (unknown) (no date) (unknown) [facility]) Result panel 1355 (unknown) (no date) (unknown) [facility]) Result panel 1356 (unknown) (no date) (unknown) [facility]) Result panel 1357 (unknown) (no date) (unknown) [facility]) Result panel 1358 (unknown) (no date) (unknown) [facility]) Result panel 1359 (unknown) (no date) (unknown) [facility]) Result panel 1360 (unknown) (no date) (unknown) [facility]) Result panel 1361 (unknown) (no date) (unknown) [facility]) Result panel 1362 (unknown) (no date) (unknown) [facility]) Result panel 1363 (unknown) (no date) (unknown) [facility]) Result panel 1364 (unknown) (no date) (unknown) [facility]) Result panel 1365 (unknown) (no date) (unknown) [facility]) Result panel 1366 (unknown) (no date) (unknown) [facility]) Result panel 1367 (unknown) (no date) (unknown) [facility]) Result panel 1368 (unknown) (no date) (unknown) [facility]) Result panel 1369 (unknown) (no date) (unknown) [facility]) Result panel 1370 (unknown) (no date) (unknown) [facility]) Result panel 1371 (unknown) (no date) (unknown) [facility]) Result panel 1372 (unknown) (no date) (unknown) [facility]) Result panel 1373 (unknown) (no date) (unknown) [facility]) Result panel 1374 (unknown) (no date) (unknown) [facility]) Result panel 1375 (unknown) (no date) (unknown) [facility]) Result panel 1376 (unknown) (no date) (unknown) [facility]) Result panel 1377 (unknown) (no date) (unknown) [facility]) Result panel 1378 (unknown) (no date) (unknown) [facility]) Result panel 1379 (unknown) (no date) (unknown) [facility]) Result panel 1380 (unknown) (no date) (unknown) [facility]) Result panel 1381 (unknown) (no date) (unknown) [facility]) Result panel 1382 (unknown) (no date) (unknown) [facility]) Result panel 1383 (unknown) (no date) (unknown) [facility]) Result panel 1384 (unknown) (no date) (unknown) [facility]) Result panel 1385 (unknown) (no date) (unknown) [facility]) Result panel 1386 (unknown) (no date) (unknown) [facility]) Result panel 1387 (unknown) (no date) (unknown) [facility]) Result panel 1388 (unknown) (no date) (unknown) [facility]) Result panel 1389 (unknown) (no date) (unknown) [facility]) Result panel 1390 (unknown) (no date) (unknown) [facility]) Result panel 1391 (unknown) (no date) (unknown) [facility]) Result panel 1392 (unknown) (no date) (unknown) [facility]) Result panel 1393 (unknown) (no date) (unknown) [facility]) Result panel 1394 (unknown) (no date) (unknown) [facility]) Result panel 1395 (unknown) (no date) (unknown) [facility]) Result panel 1396 (unknown) (no date) (unknown) [facility]) Result panel 1397 (unknown) (no date) (unknown) [facility]) Result panel 1398 (unknown) (no date) (unknown) [facility]) Result panel 1399 (unknown) (no date) (unknown) [facility]) Result panel 1400 (unknown) (no date) (unknown) [facility]) Result panel 1401 (unknown) (no date) (unknown) [facility]) Result panel 1402 (unknown) (no date) (unknown) [facility]) Result panel 1403 (unknown) (no date) (unknown) [facility]) Result panel 1404 (unknown) (no date) (unknown) [facility]) Result panel 1405 (unknown) (no date) (unknown) [facility]) Result panel 1406 (unknown) (no date) (unknown) [facility]) Result panel 1407 (unknown) (no date) (unknown) [facility]) Result panel 1408 (unknown) (no date) (unknown) [facility] Result panel 1409 (unknown) (no date) (unknown) [facility]) Result panel 1410 (unknown) (no date) (unknown) [facility] Result panel 1411 (unknown) (no date) (unknown) [facility]) Result panel 1412 (unknown) (no date) (unknown) [facility]) Result panel 1413 (unknown) (no date) (unknown) [facility]) Result panel 1414 (unknown) (no date) (unknown) [facility]) Result panel 1415 (unknown) (no date) (unknown) [facility] Result panel 1416 (unknown) (no date) (unknown) [facility]) Result panel 1417 (unknown) (no date) (unknown) [facility] Result panel 1418 (unknown) (no date) (unknown) [facility]) Result panel 1419 (unknown) (no date) (unknown) [facility]) Result panel 1420 (unknown) (no date) (unknown) [facility]) Result panel 1421 (unknown) (no date) (unknown) [facility]) Result panel 1422 (unknown) (no date) (unknown) [facility] Result panel 1423 (unknown) (no date) (unknown) [facility] Result panel 1424 (unknown) (no date) (unknown) [facility]) Result panel 1425 (unknown) (no date) (unknown) [facility]) Result panel 1426 (unknown) (no date) (unknown) [facility]) Result panel 1427 (unknown) (no date) (unknown) [facility]) Result panel 1428 (unknown) (no date) (unknown) [facility] Result panel 1429 (unknown) (no date) (unknown[facility]) Result panel 1430 (unknown) (no date) (unknown) [facility] Result panel 1431 (unknown) (no date) (unknown) [facility] Result panel 1432 (unknown) (no date) (unknown) [facility]) Result panel 1433 (unknown) (no date) (unknown) [facility]) Result panel 1434 (unknown) (no date) (unknown) [facility]) Result panel 1435 (unknown) (no date) (unknown[facility]) Result panel 1436 (unknown) (no date) (unknown) [facility]) Result panel 1437 (unknown) (no date) (unknown) [facility]) Result panel 1438 (unknown) (no date) (unknown) [facility]) Result panel 1439 (unknown) (no date) (unknown) [facility]) Result panel 1440 (unknown) (no date) (unknown) [facility] Result panel 1441 (unknown) (no date) (unknown) [facility]) Result panel 1442 (unknown) (no date) (unknown) [facility]) Result panel 1443 (unknown) (no date) (unknown) [facility]) Result panel 1444 (unknown) (no date) (unknown) [facility]) Result panel 1445 (unknown) (no date) (unknown) [facility]) Result panel 1446 (unknown) (no date) (unknown) [facility] Result panel 1447 (unknown) (no date) (unknown) [facility]) Result panel 1448 (unknown) (no date) (unknown) [facility]) Result panel 1449 (unknown) (no date) (unknown) [facility]) Result panel 1450 (unknown) (no date) (unknown) [facility]) Result panel 1451 (unknown) (no date) (unknown) [facility]) Result panel 1452 (unknown) (no date) (unknown) [facility]) Result panel 1453 (unknown) (no date) (unknown) [facility]) Result panel 1454 (unknown) (no date) (unknown) [facility]) Result panel 1455 (unknown) (no date) (unknown) [facility]) Result panel 1456 (unknown) (no date) (unknown) [facility]) Result panel 1457 (unknown) (no date) (unknown) [facility]) Result panel 1458 (unknown) (no date) (unknown) [facility]) Result panel 1459 (unknown) (no date) (unknown) [facility]) Result panel 1460 (unknown) (no date) (unknown) [facility]) Result panel 1461 (unknown) (no date) (unknown) [facility]) Result panel 1462 (unknown) (no date) (unknown) [facility]) Result panel 1463 (unknown) (no date) (unknown) [facility]) Result panel 1464 (unknown) (no date) (unknown) [facility]) Result panel 1465 (unknown) (no date) (unknown) [facility]) Result panel 1466 (unknown) (no date) (unknown) [facility]) Result panel 1467 (unknown) (no date) (unknown) [facility]) Result panel 1468 (unknown) (no date) (unknown) [facility]) Result panel 1469 (unknown) (no date) (unknown) [facility]) Result panel 1470 (unknown) (no date) (unknown) [facility]) Result panel 1471 (unknown) (no date) (unknown) [facility]) Result panel 1472 (unknown) (no date) (unknown) [facility]) Result panel 1473 (unknown) (no date) (unknown) [facility]) Result panel 1474 (unknown) (no date) (unknown) [facility]) Result panel 1475 (unknown) (no date) (unknown) [facility]) Result panel 1476 (unknown) (no date) (unknown) [facility]) Result panel 1477 (unknown) (no date) (unknown) [facility]) Result panel 1478 (unknown) (no date) (unknown) [facility]) Result panel 1479 (unknown) (no date) (unknown) [facility]) Result panel 1480 (unknown) (no date) (unknown) [facility]) Result panel 1481 (unknown) (no date) (unknown) [facility]) Result panel 1482 (unknown) (no date) (unknown) [facility]) Result panel 1483 (unknown) (no date) (unknown) [facility]) Result panel 1484 (unknown) (no date) (unknown) [facility]) Result panel 1485 (unknown) (no date) (unknown) [facility]) Result panel 1486 (unknown) (no date) (unknown) [facility]) Result panel 1487 (unknown) (no date) (unknown) [facility]) Result panel 1488 (unknown) (no date) (unknown) [facility]) Result panel 1489 (unknown) (no date) (unknown) [facility]) Result panel 1490 (unknown) (no date) (unknown) [facility]) Result panel 1491 (unknown) (no date) (unknown) [facility]) Result panel 1492 (unknown) (no date) (unknown) [facility]) Result panel 1493 (unknown) (no date) (unknown) [facility]) Result panel 1494 (unknown) (no date) (unknown) [facility]) Result panel 1495 (unknown) (no date) (unknown) [facility]) Result panel 1496 (unknown) (no date) (unknown) [facility]) Result panel 1497 (unknown) (no date) (unknown) [facility]) Result panel 1498 (unknown) (no date) (unknown) [facility]) Result panel 1499 (unknown) (no date) (unknown) [facility]) Result panel 1500 (unknown) (no date) (unknown) [facility]) Result panel 1501 (unknown) (no date) (unknown) [facility]) Result panel 1502 (unknown) (no date) (unknown) [facility]) Result panel 1503 (unknown) (no date) (unknown) [facility]) Result panel 1504 (unknown) (no date) (unknown) [facility]) Result panel 1505 (unknown) (no date) (unknown) [facility]) Result panel 1506 (unknown) (no date) (unknown) [facility]) Result panel 1507 (unknown) (no date) (unknown) [facility]) Result panel 1508 (unknown) (no date) (unknown) [facility]) Result panel 1509 (unknown) (no date) (unknown) [facility]) Result panel 1510 (unknown) (no date) (unknown) [facility]) Result panel 1511 (unknown) (no date) (unknown) [facility]) Result panel 1512 (unknown) (no date) (unknown) [facility]) Result panel 1513 (unknown) (no date) (unknown) [facility]) Result panel 1514 (unknown) (no date) (unknown) [facility]) Result panel 1515 (unknown) (no date) (unknown[facility]) Result panel 1516 (unknown) (no date) (unknown) [facility]) Result panel 1517 (unknown) (no date) (unknown) [facility]) Result panel 1518 (unknown) (no date) (unknown) [facility]) Result panel 1519 (unknown) (no date) (unknown) [facility]) Result panel 1520 (unknown) (no date) (unknown) [facility]) Result panel 1521 (unknown) (no date) (unknown) [facility]) Result panel 1522 (unknown) (no date) (unknown) [facility]) Result panel 1523 (unknown) (no date) (unknown) [facility]) Result panel 1524 (unknown) (no date) (unknown) [facility]) Result panel 1525 (unknown) (no date) (unknown) [facility]) Result panel 1526 (unknown) (no date) (unknown) [facility]) Result panel 1527 (unknown) (no date) (unknown) [facility]) Result panel 1528 (unknown) (no date) (unknown) [facility]) Result panel 1529 (unknown) (no date) (unknown) [facility]) Result panel 1530 (unknown) (no date) (unknown) [facility]) Result panel 1531 (unknown) (no date) (unknown) [facility]) Result panel 1532 (unknown) (no date) (unknown) [facility]) Result panel 1533 (unknown) (no date) (unknown) [facility]) Result panel 1534 (unknown) (no date) (unknown) [facility]) Result panel 1535 (unknown) (no date) (unknown) [facility]) Result panel 1536 (unknown) (no date) (unknown) [facility]) Result panel 1537 (unknown) (no date) (unknown) [facility]) Result panel 1538 (unknown) (no date) (unknown) [facility]) Result panel 1539 (unknown) (no date) (unknown) [facility]) Result panel 1540 (unknown) (no date) (unknown) [facility]) Result panel 1541 (unknown) (no date) (unknown) [facility]) Result panel 1542 (unknown) (no date) (unknown) [facility]) Result panel 1543 (unknown) (no date) (unknown) [facility]) Result panel 1544 (unknown) (no date) (unknown) [facility]) Result panel 1545 (unknown) (no date) (unknown) [facility]) Result panel 1546 (unknown) (no date) (unknown) [facility]) Result panel 1547 (unknown) (no date) (unknown) [facility]) Result panel 1548 (unknown) (no date) (unknown) [facility]) Result panel 1549 (unknown) (no date) (unknown) [facility]) Result panel 1550 (unknown) (no date) (unknown) [facility]) Result panel 1551 (unknown) (no date) (unknown) [facility]) Result panel 1552 (unknown) (no date) (unknown) [facility]) Result panel 1553 (unknown) (no date) (unknown) [facility]) Result panel 1554 (unknown) (no date) (unknown) [facility]) Result panel 1555 (unknown) (no date) (unknown) [facility]) Result panel 1556 (unknown) (no date) (unknown) [facility]) Result panel 1557 (unknown) (no date) (unknown) [facility]) Result panel 1558 (unknown) (no date) (unknown) [facility]) Result panel 1559 (unknown) (no date) (unknown) [facility]) Result panel 1560 (unknown) (no date) (unknown) [facility]) Result panel 1561 (unknown) (no date) (unknown) [facility]) Result panel 1562 (unknown) (no date) (unknown) [facility]) Result panel 1563 (unknown) (no date) (unknown) [facility]) Result panel 1564 (unknown) (no date) (unknown) [facility]) Result panel 1565 (unknown) (no date) (unknown) [facility]) Result panel 1566 (unknown) (no date) (unknown) [facility]) Result panel 1567 (unknown) (no date) (unknown) [facility]) Result panel 1568 (unknown) (no date) (unknown) [facility]) Result panel 1569 (unknown) (no date) (unknown) [facility]) Result panel 1570 (unknown) (no date) (unknown) [facility]) Result panel 1571 (unknown) (no date) (unknown) [facility]) Result panel 1572 (unknown) (no date) (unknown) [facility]) Result panel 1573 (unknown) (no date) (unknown) [facility]) Result panel 1574 (unknown) (no date) (unknown) [facility]) Result panel 1575 (unknown) (no date) (unknown) [facility]) Result panel 1576 (unknown) (no date) (unknown) [facility]) Result panel 1577 (unknown) (no date) (unknown) [facility]) Result panel 1578 (unknown) (no date) (unknown) [facility]) Result panel 1579 (unknown) (no date) (unknown) [facility]) Result panel 1580 (unknown) (no date) (unknown) [facility]) Result panel 1581 (unknown) (no date) (unknown) [facility]) Result panel 1582 (unknown) (no date) (unknown) [facility]) Result panel 1583 (unknown) (no date) (unknown) [facility]) Result panel 1584 (unknown) (no date) (unknown) [facility]) Result panel 1585 (unknown) (no date) (unknown) [facility]) Result panel 1586 (unknown) (no date) (unknown) [facility]) Result panel 1587 (unknown) (no date) (unknown) [facility]) Result panel 1588 (unknown) (no date) (unknown) [facility]) Result panel 1589 (unknown) (no date) (unknown) [facility]) Result panel 1590 (unknown) (no date) (unknown) [facility]) Result panel 1591 (unknown) (no date) (unknown) [facility]) Result panel 1592 (unknown) (no date) (unknown) [facility]) Result panel 1593 (unknown) (no date) (unknown) [facility]) Result panel 1594 (unknown) (no date) (unknown) [facility]) Result panel 1595 (unknown) (no date) (unknown) [facility]) Result panel 1596 (unknown) (no date) (unknown) [facility]) Result panel 1597 (unknown) (no date) (unknown) [facility]) Result panel 1598 (unknown) (no date) (unknown) [facility]) Result panel 1599 (unknown) (no date) (unknown) [facility]) Result panel 1600 (unknown) (no date) (unknown) [facility]) Result panel 1601 (unknown) (no date) (unknown) [facility]) Result panel 1602 (unknown) (no date) (unknown) [facility]) Result panel 1603 (unknown) (no date) (unknown) [facility]) Result panel 1604 (unknown) (no date) (unknown) [facility]) Result panel 1605 (unknown) (no date) (unknown) [facility]) Result panel 1606 (unknown) (no date) (unknown) [facility]) Result panel 1607 (unknown) (no date) (unknown) [facility]) Result panel 1608 (unknown) (no date) (unknown) [facility]) Result panel 1609 (unknown) (no date) (unknown) [facility]) Result panel 1610 (unknown) (no date) (unknown) [facility]) Result panel 1611 (unknown) (no date) (unknown) [facility]) Result panel 1612 (unknown) (no date) (unknown) [facility]) Result panel 1613 (unknown) (no date) (unknown) [facility]) Result panel 1614 (unknown) (no date) (unknown) [facility]) Result panel 1615 (unknown) (no date) (unknown) [facility]) Result panel 1616 (unknown) (no date) (unknown) [facility]) Result panel 1617 (unknown) (no date) (unknown) [facility]) Result panel 1618 (unknown) (no date) (unknown) [facility]) Result panel 1619 (unknown) (no date) (unknown) [facility]) Result panel 1620 (unknown) (no date) (unknown) [facility]) Result panel 1621 (unknown) (no date) (unknown) [facility]) Result panel 1622 (unknown) (no date) (unknown) [facility]) Result panel 1623 (unknown) (no date) (unknown) [facility]) Result panel 1624 (unknown) (no date) (unknown) [facility]) Result panel 1625 (unknown) (no date) (unknown) [facility]) Result panel 1626 (unknown) (no date) (unknown) [facility]) Result panel 1627 (unknown) (no date) (unknown) [facility]) Result panel 1628 (unknown) (no date) (unknown) [facility]) Result panel 1629 (unknown) (no date) (unknown) [facility]) Result panel 1630 (unknown) (no date) (unknown) [facility]) Result panel 1631 (unknown) (no date) (unknown) [facility]) Result panel 1632 (unknown) (no date) (unknown) [facility]) Result panel 1633 (unknown) (no date) (unknown) [facility]) Result panel 1634 (unknown) (no date) (unknown) [facility]) Result panel 1635 (unknown) (no date) (unknown) [facility] Result panel 1636 (unknown) (no date) (unknown) [facility]) Result panel 1637 (unknown) (no date) (unknown) [facility]) Result panel 1638 (unknown) (no date) (unknown) [facility]) Result panel 1639 (unknown) (no date) (unknown) [facility]) Result panel 1640 (unknown) (no date) (unknown) [facility]) Result panel 1641 (unknown) (no date) (unknown) [facility]) Result panel 1642 (unknown) (no date) (unknown) [facility]) Result panel 1643 (unknown) (no date) (unknown) [facility] Result panel 1644 (unknown) (no date) (unknown) [facility]) Result panel 1645 (unknown) (no date) (unknown) [facility] Result panel 1646 (unknown) (no date) (unknown) [facility] Result panel 1647 (unknown) (no date) (unknown) [facility] Result panel 1648 (unknown) (no date) (unknown[facility]) Result panel 1649 (unknown) (no date) (unknown) [facility] Result panel 1650 (unknown) (no date) (unknown) [facility]) Result panel 1651 (unknown) (no date) (unknown) [facility] Result panel 1652 (unknown) (no date) (unknown) [facility]) Result panel 1653 (unknown) (no date) (unknown) [facility]) Result panel 1654 (unknown) (no date) (unknown) [facility]) Result panel 1655 (unknown) (no date) (unknown) [facility] Result panel 1656 (unknown) (no date) (unknown) [facility]) Result panel 1657 (unknown) (no date) (unknown) [facility]) Result panel 1658 (unknown) (no date) (unknown[facility] Result panel 1659 (unknown) (no date) (unknown) [facility]) Result panel 1660 (unknown) (no date) (unknown) [facility] Result panel 1661 (unknown) (no date) (unknown[facility]) Result panel 1662 (unknown) (no date) (unknown[facility]) Result panel 1663 (unknown) (no date) (unknown) [facility] Result panel 1664 (unknown) (no date) (unknown) [facility] Result panel 1665 (unknown) (no date) (unknown) [facility]) Result panel 1666 (unknown) (no date) (unknown) [facility]) Result panel 1667 (unknown) (no date) (unknown) [facility] Result panel 1668 (unknown) (no date) (unknown) [facility]) Result panel 1669 (unknown) (no date) (unknown) [facility] Result panel 1670 (unknown) (no date) (unknown[facility]) Result panel 1671 (unknown) (no date) (unknown) [facility]) Result panel 1672 (unknown) (no date) (unknown) [facility] Result panel 1673 (unknown) (no date) (unknown) [facility]) Result panel 1674 (unknown) (no date) (unknown) [facility]) Result panel 1675 (unknown) (no date) (unknown) [facility]) Result panel 1676 (unknown) (no date) (unknown) [facility]) Result panel 1677 (unknown) (no date) (unknown) [facility]) Result panel 1678 (unknown) (no date) (unknown) [facility] Result panel 1679 (unknown) (no date) (unknown) [facility]) Result panel 1680 (unknown) (no date) (unknown) [facility]) Result panel 1681 (unknown) (no date) (unknown) [facility]) Result panel 1682 (unknown) (no date) (unknown) [facility]) Result panel 1683 (unknown) (no date) (unknown) [facility]) Result panel 1684 (unknown) (no date) (unknown) [facility]) Result panel 1685 (unknown) (no date) (unknown) [facility]) Result panel 1686 (unknown) (no date) (unknown) [facility]) Result panel 1687 (unknown) (no date) (unknown) [facility]) Result panel 1688 (unknown) (no date) (unknown) [facility]) Result panel 1689 (unknown) (no date) (unknown) [facility]) Result panel 1690 (unknown) (no date) (unknown) [facility]) Result panel 1691 (unknown) (no date) (unknown) [facility]) Result panel 1692 (unknown) (no date) (unknown) [facility]) Result panel 1693 (unknown) (no date) (unknown) [facility]) Result panel 1694 (unknown) (no date) (unknown) [facility]) Result panel 1695 (unknown) (no date) (unknown) [facility]) Result panel 1696 (unknown) (no date) (unknown) [facility]) Result panel 1697 (unknown) (no date) (unknown) [facility]) Result panel 1698 (unknown) (no date) (unknown) [facility]) Result panel 1699 (unknown) (no date) (unknown) [facility]) Result panel 1700 (unknown) (no date) (unknown) [facility]) Result panel 1701 (unknown) (no date) (unknown) [facility]) Result panel 1702 (unknown) (no date) (unknown) [facility]) Result panel 1703 (unknown) (no date) (unknown) [facility]) Result panel 1704 (unknown) (no date) (unknown) [facility]) Result panel 1705 (unknown) (no date) (unknown) [facility]) Result panel 1706 (unknown) (no date) (unknown) [facility]) Result panel 1707 (unknown) (no date) (unknown) [facility]) Result panel 1708 (unknown) (no date) (unknown) [facility]) Result panel 1709 (unknown) (no date) (unknown) [facility]) Result panel 1710 (unknown) (no date) (unknown) [facility]) Result panel 1711 (unknown) (no date) (unknown) [facility]) Result panel 1712 (unknown) (no date) (unknown) [facility]) Result panel 1713 (unknown) (no date) (unknown) [facility]) Result panel 1714 (unknown) (no date) (unknown) [facility]) Result panel 1715 (unknown) (no date) (unknown) [facility]) Result panel 1716 (unknown) (no date) (unknown) [facility]) Result panel 1717 (unknown) (no date) (unknown[facility]) Result panel 1718 (unknown) (no date) (unknown) [facility]) Result panel 1719 (unknown) (no date) (unknown) [facility]) Result panel 1720 (unknown) (no date) (unknown) [facility]) Result panel 1721 (unknown) (no date) (unknown) [facility]) Result panel 1722 (unknown) (no date) (unknown) [facility]) Result panel 1723 (unknown) (no date) (unknown) [facility]) Result panel 1724 (unknown) (no date) (unknown) [facility]) Result panel 1725 (unknown) (no date) (unknown) [facility]) Result panel 1726 (unknown) (no date) (unknown) [facility]) Result panel 1727 (unknown) (no date) (unknown) [facility]) Result panel 1728 (unknown) (no date) (unknown) [facility]) Result panel 1729 (unknown) (no date) (unknown) [facility]) Result panel 1730 (unknown) (no date) (unknown) [facility]) Result panel 1731 (unknown) (no date) (unknown) [facility]) Result panel 1732 (unknown) (no date) (unknown) [facility]) Result panel 1733 (unknown) (no date) (unknown) [facility]) Result panel 1734 (unknown) (no date) (unknown) [facility]) Result panel 1735 (unknown) (no date) (unknown) [facility]) Result panel 1736 (unknown) (no date) (unknown) [facility]) Result panel 1737 (unknown) (no date) (unknown) [facility]) Result panel 1738 (unknown) (no date) (unknown) [facility]) Result panel 1739 (unknown) (no date) (unknown) [facility]) Result panel 1740 (unknown) (no date) (unknown) [facility]) Result panel 1741 (unknown) (no date) (unknown) [facility]) Result panel 1742 (unknown) (no date) (unknown) [facility]) Result panel 1743 (unknown) (no date) (unknown) [facility]) Result panel 1744 (unknown) (no date) (unknown) [facility]) Result panel 1745 (unknown) (no date) (unknown) [facility]) Result panel 1746 (unknown) (no date) (unknown) [facility]) Result panel 1747 (unknown) (no date) (unknown) [facility]) Result panel 1748 (unknown) (no date) (unknown) [facility]) Result panel 1749 (unknown) (no date) (unknown) [facility]) Result panel 1750 (unknown) (no date) (unknown) [facility]) Result panel 1751 (unknown) (no date) (unknown) [facility]) Result panel 1752 (unknown) (no date) (unknown) [facility]) Result panel 1753 (unknown) (no date) (unknown) [facility]) Result panel 1754 (unknown) (no date) (unknown) [facility]) Result panel 1755 (unknown) (no date) (unknown) [facility]) Result panel 1756 (unknown) (no date) (unknown) [facility]) Result panel 1757 (unknown) (no date) (unknown) [facility]) Result panel 1758 (unknown) (no date) (unknown[facility]) Result panel 1759 (unknown) (no date) (unknown) [facility]) Result panel 1760 (unknown) (no date) (unknown[facility]) Result panel 1761 (unknown) (no date) (unknown) [facility]) Result panel 1762 (unknown) (no date) (unknown) [facility]) Result panel 1763 (unknown) (no date) (unknown) [facility]) Result panel 1764 (unknown) (no date) (unknown) [facility]) Result panel 1765 (unknown) (no date) (unknown) [facility]) Result panel 1766 (unknown) (no date) (unknown) [facility]) Result panel 1767 (unknown) (no date) (unknown) [facility]) Result panel 1768 (unknown) (no date) (unknown) [facility]) Result panel 1769 (unknown) (no date) (unknown) [facility]) Result panel 1770 (unknown) (no date) (unknown) [facility]) Result panel 1771 (unknown) (no date) (unknown) [facility]) Result panel 1772 (unknown) (no date) (unknown) [facility]) Result panel 1773 (unknown) (no date) (unknown) [facility]) Result panel 1774 (unknown) (no date) (unknown) [facility]) Result panel 1775 (unknown) (no date) (unknown) [facility]) Result panel 1776 (unknown) (no date) (unknown) [facility]) Result panel 1777 (unknown) (no date) (unknown[facility]) Result panel 1778 (unknown) (no date) (unknown[facility]) Result panel 1779 (unknown) (no date) (unknown) [facility]) Result panel 1780 (unknown) (no date) (unknown) [facility]) Result panel 1781 (unknown) (no date) (unknown) [facility]) Result panel 1782 (unknown) (no date) (unknown) [facility]) Result panel 1783 (unknown) (no date) (unknown) [facility]) Result panel 1784 (unknown) (no date) (unknown) [facility]) Result panel 1785 (unknown) (no date) (unknown) [facility]) Result panel 1786 (unknown) (no date) (unknown) [facility]) Result panel 1787 (unknown) (no date) (unknown) [facility]) Result panel 1788 (unknown) (no date) (unknown) [facility]) Result panel 1789 (unknown) (no date) (unknown) [facility]) Result panel 1790 (unknown) (no date) (unknown) [facility]) Result panel 1791 (unknown) (no date) (unknown) [facility]) Result panel 1792 (unknown) (no date) (unknown) [facility]) Result panel 1793 (unknown) (no date) (unknown) [facility]) Result panel 1794 (unknown) (no date) (unknown) [facility]) Result panel 1795 (unknown) (no date) (unknown) [facility]) Result panel 1796 (unknown) (no date) (unknown) [facility]) Result panel 1797 (unknown) (no date) (unknown) [facility]) Result panel 1798 (unknown) (no date) (unknown) [facility]) Result panel 1799 (unknown) (no date) (unknown) [facility]) Result panel 1800 (unknown) (no date) (unknown) [facility]) Result panel 1801 (unknown) (no date) (unknown) [facility]) Result panel 1802 (unknown) (no date) (unknown) [facility]) Result panel 1803 (unknown) (no date) (unknown) [facility]) Result panel 1804 (unknown) (no date) (unknown) [facility]) Result panel 1805 (unknown) (no date) (unknown) [facility]) Result panel 1806 (unknown) (no date) (unknown) [facility]) Result panel 1807 (unknown) (no date) (unknown) [facility]) Result panel 1808 (unknown) (no date) (unknown) [facility]) Result panel 1809 (unknown) (no date) (unknown) [facility]) Result panel 1810 (unknown) (no date) (unknown) [facility]) Result panel 1811 (unknown) (no date) (unknown) [facility]) Result panel 1812 (unknown) (no date) (unknown) [facility]) Result panel 1813 (unknown) (no date) (unknown) [facility]) Result panel 1814 (unknown) (no date) (unknown) [facility]) Result panel 1815 (unknown) (no date) (unknown) [facility]) Result panel 1816 (unknown) (no date) (unknown) [facility]) Result panel 1817 (unknown) (no date) (unknown) [facility]) Result panel 1818 (unknown) (no date) (unknown) [facility]) Result panel 1819 (unknown) (no date) (unknown) [facility]) Result panel 1820 (unknown) (no date) (unknown) [facility]) Result panel 1821 (unknown) (no date) (unknown) [facility]) Result panel 1822 (unknown) (no date) (unknown) [facility]) Result panel 1823 (unknown) (no date) (unknown) [facility]) Result panel 1824 (unknown) (no date) (unknown) [facility]) Result panel 1825 (unknown) (no date) (unknown) [facility]) Result panel 1826 (unknown) (no date) (unknown) [facility]) Result panel 1827 (unknown) (no date) (unknown) [facility]) Result panel 1828 (unknown) (no date) (unknown) [facility]) Result panel 1829 (unknown) (no date) (unknown) [facility]) Result panel 1830 (unknown) (no date) (unknown) [facility]) Result panel 1831 (unknown) (no date) (unknown) [facility]) Result panel 1832 (unknown) (no date) (unknown) [facility]) Result panel 1833 (unknown) (no date) (unknown) [facility]) Result panel 1834 (unknown) (no date) (unknown) [facility]) Result panel 1835 (unknown) (no date) (unknown) [facility]) Result panel 1836 (unknown) (no date) (unknown) [facility]) Result panel 1837 (unknown) (no date) (unknown) [facility]) Result panel 1838 (unknown) (no date) (unknown) [facility]) Result panel 1839 (unknown) (no date) (unknown) [facility]) Result panel 1840 (unknown) (no date) (unknown) [facility]) Result panel 1841 (unknown) (no date) (unknown) [facility]) Result panel 1842 (unknown) (no date) (unknown) [facility]) Result panel 1843 (unknown) (no date) (unknown) [facility]) Result panel 1844 (unknown) (no date) (unknown) [facility]) Result panel 1845 (unknown) (no date) (unknown) [facility]) Result panel 1846 (unknown) (no date) (unknown) [facility]) Result panel 1847 (unknown) (no date) (unknown) [facility]) Result panel 1848 (unknown) (no date) (unknown) [facility]) Result panel 1849 (unknown) (no date) (unknown) [facility]) Result panel 1850 (unknown) (no date) (unknown) [facility]) Result panel 1851 (unknown) (no date) (unknown) [facility]) Result panel 1852 (unknown) (no date) (unknown) [facility]) Result panel 1853 (unknown) (no date) (unknown) [facility]) Result panel 1854 (unknown) (no date) (unknown) [facility]) Result panel 1855 (unknown) (no date) (unknown) [facility]) Result panel 1856 (unknown) (no date) (unknown) [facility]) Result panel 1857 (unknown) (no date) (unknown) [facility]) Result panel 1858 (unknown) (no date) (unknown) [facility]) Result panel 1859 (unknown) (no date) (unknown) [facility]) Result panel 1860 (unknown) (no date) (unknown) [facility]) Result panel 1861 (unknown) (no date) (unknown) [facility]) Result panel 1862 (unknown) (no date) (unknown) [facility]) Result panel 1863 (unknown) (no date) (unknown) [facility]) Result panel 1864 (unknown) (no date) (unknown) [facility]) Result panel 1865 (unknown) (no date) (unknown) [facility]) Result panel 1866 (unknown) (no date) (unknown) [facility]) Result panel 1867 (unknown) (no date) (unknown) [facility]) Result panel 1868 (unknown) (no date) (unknown) [facility]) Result panel 1869 (unknown) (no date) (unknown) [facility]) Result panel 1870 (unknown) (no date) (unknown) [facility]) Result panel 1871 (unknown) (no date) (unknown) [facility]) Result panel 1872 (unknown) (no date) (unknown) [facility]) Result panel 1873 (unknown) (no date) (unknown) [facility]) Result panel 1874 (unknown) (no date) (unknown) [facility]) Result panel 1875 (unknown) (no date) (unknown) [facility]) Result panel 1876 (unknown) (no date) (unknown) [facility]) Result panel 1877 (unknown) (no date) (unknown[facility]) Result panel 1878 (unknown) (no date) (unknown) [facility] Result panel 1879 (unknown) (no date) (unknown) [facility] [facility]) Result panel 1880 (unknown) (no date) (unknown) [facility]) Result panel 1881 (unknown) (no date) (unknown) [facility] Result panel 1882 (unknown) (no date) (unknown) [facility]) Result panel 1883 (unknown) (no date) (unknown) [facility]) Result panel 1884 (unknown) (no date) (unknown) [facility]) Result panel 1885 (unknown) (no date) (unknown) [facility]) Result panel 1886 (unknown) (no date) (unknown) [facility]) Result panel 1887 (unknown) (no date) (unknown) [facility]) Result panel 1888 (unknown) (no date) (unknown) [facility]) Result panel 1889 (unknown) (no date) (unknown) [facility]) Result panel 1890 (unknown) (no date) (unknown) [facility]) Result panel 1891 (unknown) (no date) (unknown) [facility]) Result panel 1892 (unknown) (no date) (unknown) [facility]) Result panel 1893 (unknown) (no date) (unknown) [facility]) Result panel 1894 (unknown) (no date) (unknown) [facility]) Result panel 1895 (unknown) (no date) (unknown) [facility]) Result panel 1896 (unknown) (no date) (unknown) [facility]) Result panel 1897 (unknown) (no date) (unknown) [facility]) Result panel 1898 (unknown) (no date) (unknown) [facility]) Result panel 1899 (unknown) (no date) (unknown) [facility]) Result panel 1900 (unknown) (no date) (unknown) [facility]) Result panel 1901 (unknown) (no date) (unknown) [facility]) Result panel 1902 (unknown) (no date) (unknown) [facility]) Result panel 1903 (unknown) (no date) (unknown) [facility]) Result panel 1904 (unknown) (no date) (unknown) [facility]) Result panel 1905 (unknown) (no date) (unknown) [facility]) Result panel 1906 (unknown) (no date) (unknown) [facility]) Result panel 1907 (unknown) (no date) (unknown) [facility]) Result panel 1908 (unknown) (no date) (unknown) [facility]) Result panel 1909 (unknown) (no date) (unknown) [facility]) Result panel 1910 (unknown) (no date) (unknown) [facility]) Result panel 1911 (unknown) (no date) (unknown) [facility]) Result panel 1912 (unknown) (no date) (unknown) [facility]) Result panel 1913 (unknown) (no date) (unknown) [facility] Result panel 1914 (unknown) (no date) (unknown) [facility]) Result panel 1915 (unknown) (no date) (unknown) [facility]) Result panel 1916 (unknown) (no date) (unknown) [facility]) Result panel 1917 (unknown) (no date) (unknown) [facility]) Result panel 1918 (unknown) (no date) (unknown) [facility]) Result panel 191 (unknown) (no date) (unknown) [facility]) Result panel 1920 (unknown) (no date) (unknown) [facility]) Result panel 192 (unknown) (no date) (unknown) [facility]) Result panel 192 (unknown) (no date) (unknown) [facility]) Result panel 192 (unknown) (no date) (unknown) [facility]) Result panel 192 (unknown) (no date) (unknown) [facility]) Result panel 192 (unknown) (no date) (unknown[facility]) Result panel 192 (unknown) (no date) (unknown) [facility]) Result panel 192 (unknown) (no date) (unknown[facility]) Result panel 192 (unknown) (no date) (unknown) [facility]) Result panel 192 (unknown) (no date) (unknown) [facility]) Result panel 193 (unknown) (no date) (unknown) [facility]) Result panel 193 (unknown) (no date) (unknown) [facility]) Result panel 1932 (unknown) (no date) (unknown) [facility]) Result panel 1933 (unknown) (no date) (unknown) [facility]) Result panel 1934 (unknown) (no date) (unknown) [facility]) Result panel 193 (unknown) (no date) (unknown) [facility]) Result panel 193 (unknown) (no date) (unknown) [facility]) Result panel 193 (unknown) (no date) (unknown[facility]) Result panel 193 (unknown) (no date) (unknown) [facility]) Result panel 193 (unknown) (no date) (unknown) [facility]) Result panel 194 (unknown) (no date) (unknown[facility]) Result panel 194 (unknown) (no date) (unknown[facility]) Result panel 194 (unknown) (no date) (unknown[facility]) Result panel 194 (unknown) (no date) (unknown[facility]) Result panel 194 (unknown) (no date) (unknown[facility] Result panel 194 (unknown) (no date) (unknown[facility]) Result panel 194 (unknown) (no date) (unknown) [facility]) Result panel 194 (unknown) (no date) (unknown) [facility]) Result panel 194 (unknown) (no date) (unknown) [facility]) Result panel 194 (unknown) (no date) (unknown) [facility]) Result panel 1950 (unknown) (no date) (unknown) [facility]) Result panel 1950 (unknown) (no date) (unknown) [facility]) Result panel 1951 (unknown) (no date) (unknown) [facility]) Result panel 1952 (unknown) (no date) (unknown) [facility]) Result panel 1953 (unknown) (no date) (unknown) [facility]) Result panel 1954 (unknown) (no date) (unknown) [facility]) Result panel 1955 (unknown) (no date) (unknown) [facility]) Result panel 1956 (unknown) (no date) (unknown) [facility]) Result panel 1957 (unknown) (no date) (unknown) [facility]) Result panel 1958 (unknown) (no date) (unknown) [facility]) Result panel 1959 (unknown) (no date) (unknown) [facility]) Result panel 1960 (unknown) (no date) (unknown) [facility]) Result panel 1961 (unknown) (no date) (unknown) [facility]) Result panel 1963 (unknown) (no date) (unknown) [facility]) Result panel 1964 (unknown) (no date) (unknown) [facility]) Result panel 1965 (unknown) (no date) (unknown) [facility]) Result panel 1966 (unknown) (no date) (unknown) [facility]) Result panel 1967 (unknown) (no date) (unknown) [facility]) Result panel 1968 (unknown) (no date) (unknown) [facility]) Result panel 1968 (unknown) (no date) (unknown) [facility]) Result panel 1969 (unknown) (no date) (unknown) [facility]) Result panel 1970 (unknown) (no date) (unknown) [facility]) Result panel 1971 (unknown) (no date) (unknown) [facility]) Result panel 1972 (unknown) (no date) (unknown) [facility]) Result panel 1973 (unknown) (no date) (unknown) [facility]) Result panel 1974 (unknown) (no date) (unknown) [facility]) Result panel 1975 (unknown) (no date) (unknown) [facility]) Result panel 1976 (unknown) (no date) (unknown) [facility]) Result panel 1977 (unknown) (no date) (unknown) [facility]) Result panel 1978 (unknown) (no date) (unknown) [facility]) Result panel 1979 (unknown) (no date) (unknown) [facility]) Result panel 1980 (unknown) (no date) (unknown) [facility]) Result panel 1981 (unknown) (no date) (unknown) [facility]) Result panel 1982 (unknown) (no date) (unknown) [facility]) Result panel 1983 (unknown) (no date) (unknown) [facility]) Result panel 1984 (unknown) (no date) (unknown) [facility]) Result panel 1985 (unknown) (no date) (unknown) [facility]) Result panel 1986 (unknown) (no date) (unknown) [facility]) Result panel 1987 (unknown) (no date) (unknown) [facility]) Result panel 1988 (unknown) (no date) (unknown) [facility]) Result panel 1989 (unknown) (no date) (unknown) [facility]) Result panel 1990 (unknown) (no date) (unknown) [facility]) Result panel 1991 (unknown) (no date) (unknown) [facility]) Result panel 1992 (unknown) (no date) (unknown) [facility]) Result panel 1993 (unknown) (no date) (unknown) [facility]) Result panel 1994 (unknown) (no date) (unknown) [facility]) Result panel 1996 (unknown) (no date) (unknown) [facility]) Result panel 1996 (unknown) (no date) (unknown) [facility]) Result panel 1997 (unknown) (no date) (unknown) [facility]) Result panel 1998 (unknown) (no date) (unknown) [facility]) Result panel 1999 (unknown) (no date) (unknown) [facility]) Result panel 2000 (unknown) (no date) (unknown) [facility]) Result panel 2002 (unknown) (no date) (unknown) [facility]) Result panel 2003 (unknown) (no date) (unknown) [facility]) Result panel 2004 (unknown) (no date) (unknown) [facility]) Result panel 2005 (unknown) (no date) (unknown) [facility]) Result panel 2006 (unknown) (no date) (unknown) [facility]) Result panel 2007 (unknown) (no date) (unknown) [facility]) Result panel 2008 (unknown) (no date) (unknown) [facility]) Result panel 2009 (unknown) (no date) (unknown) [facility]) Result panel 2010 (unknown) (no date) (unknown) [facility]) Result panel 2011 (unknown) (no date) (unknown) [facility]) Result panel 2012 (unknown) (no date) (unknown) [facility]) Result panel 2013 (unknown) (no date) (unknown) [facility]) Result panel 2014 (unknown) (no date) (unknown) [facility]) Result panel 2015 (unknown) (no date) (unknown) [facility]) Result panel 2016 (unknown) (no date) (unknown) [facility]) Result panel 2017 (unknown) (no date) (unknown) [facility]) Result panel 2018 (unknown) (no date) (unknown) [facility]) Result panel 2019 (unknown) (no date) (unknown) [facility]) Result panel 2019 (unknown) (no date) (unknown) [facility]) Result panel 2020 (unknown) (no date) (unknown) [facility]) Result panel 2021 (unknown) (no date) (unknown) [facility]) Result panel 2022 (unknown) (no date) (unknown) [facility]) Result panel 2023 (unknown) (no date) (unknown) [facility]) Result panel 2024 (unknown) (no date) (unknown) [facility]) Result panel 2025 (unknown) (no date) (unknown) [facility]) Result panel 2026 (unknown) (no date) (unknown) [facility]) Result panel 2027 (unknown) (no date) (unknown) [facility]) Result panel 2028 (unknown) (no date) (unknown) [facility]) Result panel 2029 (unknown) (no date) (unknown) [facility]) Result panel 2030 (unknown) (no date) (unknown) [facility]) Result panel 2031 (unknown) (no date) (unknown) [facility]) Result panel 2032 (unknown) (no date) (unknown) [facility]) Result panel 2033 (unknown) (no date) (unknown) [facility]) Result panel 2034 (unknown) (no date) (unknown) [facility]) Result panel 2035 (unknown) (no date) (unknown) [facility]) Result panel 2036 (unknown) (no date) (unknown) [facility]) Result panel 2037 (unknown) (no date) (unknown) [facility]) Result panel 2038 (unknown) (no date) (unknown) [facility]) Result panel 2039 (unknown) (no date) (unknown) [facility]) Result panel 2040 (unknown) (no date) (unknown) [facility]) Result panel 2041 (unknown) (no date) (unknown) [facility]) Result panel 204 (unknown) (no date) (unknown) [facility]) Result panel 2043 (unknown) (no date) (unknown) [facility]) Result panel 5 (unknown) (no date) (unknown) [facility]) Result panel 2045 (unknown) (no date) (unknown) [facility]) Result panel 204 (unknown) (no date) (unknown) [facility]) Result panel 204 (unknown) (no date) (unknown) [facility]) Result panel 204 (unknown) (no date) (unknown) [facility]) Result panel 2049 (unknown) (no date) (unknown) [facility]) Result panel 2050 (unknown) (no date) (unknown) [facility]) Result panel 205 (unknown) (no date) (unknown) [facility]) Result panel 2052 (unknown) (no date) (unknown) [facility]) Result panel 2053 (unknown) (no date) (unknown) [facility]) Result panel 2054 (unknown) (no date) (unknown) [facility]) Result panel 2055 (unknown) (no date) (unknown) [facility]) Result panel 2056 (unknown) (no date) (unknown) [facility]) Result panel 2057 (unknown) (no date) (unknown) [facility]) Result panel 2058 (unknown) (no date) (unknown) [facility]) Result panel 2059 (unknown) (no date) (unknown) [facility]) Result panel 2060 (unknown) (no date) (unknown) [facility]) Result panel 2061 (unknown) (no date) (unknown) [facility]) Result panel 2062 (unknown) (no date) (unknown) [facility]) Result panel 2063 (unknown) (no date) (unknown) [facility]) Result panel 5 (unknown) (no date) (unknown) [facility]) Result panel 2066 (unknown) (no date) (unknown) [facility]) Result panel 2067 (unknown) (no date) (unknown) [facility]) Result panel 206 (unknown) (no date) (unknown) [facility]) Result panel 2069 (unknown) (no date) (unknown) [facility]) Result panel 2069 (unknown) (no date) (unknown) [facility]) Result panel 2070 (unknown) (no date) (unknown) [facility]) Result panel 2071 (unknown) (no date) (unknown) [facility]) Result panel 2072 (unknown) (no date) (unknown) [facility]) Result panel 2073 (unknown) (no date) (unknown) [facility]) Result panel 2074 (unknown) (no date) (unknown) [facility]) Result panel 2075 (unknown) (no date) (unknown) [facility]) Result panel 2076 (unknown) (no date) (unknown) [facility]) Result panel 2077 (unknown) (no date) (unknown) [facility]) Result panel 2078 (unknown) (no date) (unknown) [facility]) Result panel 2079 (unknown) (no date) (unknown) [facility]) Result panel 208 (unknown) (no date) (unknown) [facility]) Result panel 2082 (unknown) (no date) (unknown) [facility]) Result panel 2083 (unknown) (no date) (unknown) [facility]) Result panel 2084 (unknown) (no date) (unknown) [facility]) Result panel 2085 (unknown) (no date) (unknown) [facility]) Result panel 2086 (unknown) (no date) (unknown) [facility]) Result panel 2086 (unknown) (no date) (unknown) [facility]) Result panel 2087 (unknown) (no date) (unknown) [facility]) Result panel 2088 (unknown) (no date) (unknown) [facility]) Result panel 2089 (unknown) (no date) (unknown) [facility]) Result panel 2090 (unknown) (no date) (unknown) [facility]) Result panel 2091 (unknown) (no date) (unknown) [facility]) Result panel 2092 (unknown) (no date) (unknown) [facility]) Result panel 2093 (unknown) (no date) (unknown) [facility]) Result panel 5 (unknown) (no date) (unknown) [facility]) Result panel 2095 (unknown) (no date) (unknown) [facility]) Result panel 2096 (unknown) (no date) (unknown) [facility]) Result panel 2097 (unknown) (no date) (unknown) [facility]) Result panel 209 (unknown) (no date) (unknown) [facility]) Result panel 2100 (unknown) (no date) (unknown) [facility]) Result panel 210 (unknown) (no date) (unknown) [facility]) Result panel 2102 (unknown) (no date) (unknown) [facility]) Result panel 2103 (unknown) (no date) (unknown) [facility]) Result panel 2104 (unknown) (no date) (unknown) [facility]) Result panel 2105 (unknown) (no date) (unknown) [facility]) Result panel 2106 (unknown) (no date) (unknown) [facility]) Result panel 2107 (unknown) (no date) (unknown) [facility]) Result panel 2108 (unknown) (no date) (unknown) [facility]) Result panel 2109 (unknown) (no date) (unknown) [facility]) Result panel 2110 (unknown) (no date) (unknown) [facility]) Result panel 2111 (unknown) (no date) (unknown) [facility]) Result panel 2112 (unknown) (no date) (unknown) [facility]) Result panel 2113 (unknown) (no date) (unknown) [facility]) Result panel 2114 (unknown) (no date) (unknown[facility]) Result panel 2115 (unknown) (no date) (unknown) [facility]) Result panel 2116 (unknown) (no date) (unknown) [facility] Result panel 2117 (unknown) (no date) (unknown) [facility] Result panel 2118 (unknown) (no date) (unknown) [facility]) Result panel 2119 (unknown) (no date) (unknown) [facility]) Result panel 2120 (unknown) (no date) (unknown) [facility]) Result panel 2121 (unknown) (no date) (unknown[facility]) Result panel 2122 (unknown) (no date) (unknown[facility] Result panel 2123 (unknown) (no date) (unknown) [facility]) Result panel 2124 (unknown) (no date) (unknown) [facility]) Result panel 2125 (unknown) (no date) (unknown) [facility]) Result panel 2126 (unknown) (no date) (unknown) [facility]) Result panel 2127 (unknown) (no date) (unknown) [facility]) Result panel 2128 (unknown) (no date) (unknown) [facility]) Result panel 2129 (unknown) (no date) (unknown) [facility]) Result panel 2130 (unknown) (no date) (unknown) [facility]) Result panel 2131 (unknown) (no date) (unknown) [facility]) Result panel 2132 (unknown) (no date) (unknown[facility]) Result panel 2133 (unknown) (no date) (unknown) [facility]) Result panel 2134 (unknown) (no date) (unknown[facility]) Result panel 2135 (unknown) (no date) (unknown) [facility]) Result panel 2136 (unknown) (no date) (unknown[facility]) Result panel 2137 (unknown) (no date) (unknown) [facility]) Result panel 2138 (unknown) (no date) (unknown) [facility]) Result panel 2139 (unknown) (no date) (unknown) [facility] Result panel 2140 (unknown) (no date) (unknown) [facility]) Result panel 2141 (unknown) (no date) (unknown[facility] Result panel 2142 (unknown) (no date) (unknown) [facility]) Result panel 2143 (unknown) (no date) (unknown) [facility]) Result panel 2144 (unknown) (no date) (unknown) [facility]) Result panel 2145 (unknown) (no date) (unknown) [facility]) Result panel 2146 (unknown) (no date) (unknown) [facility]) Result panel 2147 (unknown) (no date) (unknown) [facility]) Result panel 2148 (unknown) (no date) (unknown[facility]) Result panel 2149 (unknown) (no date) (unknown) [facility]) Result panel 2150 (unknown) (no date) (unknown[facility]) Result panel 2151 (unknown) (no date) (unknown) [facility]) Result panel 2152 (unknown) (no date) (unknown) [facility]) Result panel 2153 (unknown) (no date) (unknown) [facility]) Result panel 2154 (unknown) (no date) (unknown) [facility]) Result panel 2155 (unknown) (no date) (unknown) [facility] Result panel 2156 (unknown) (no date) (unknown) [facility]) Result panel 2157 (unknown) (no date) (unknown) [facility]) Result panel 2158 (unknown) (no date) (unknown) [facility]) Result panel 2159 (unknown) (no date) (unknown) [facility]) Result panel 2160 (unknown) (no date) (unknown[facility]) Result panel 2161 (unknown) (no date) (unknown) [facility] Result panel 2162 (unknown) (no date) (unknown[facility]) Result panel 2163 (unknown) (no date) (unknown) [facility]) Result panel 2164 (unknown) (no date) (unknown) [facility]) Result panel 2165 (unknown) (no date) (unknown[facility]) Result panel 2166 (unknown) (no date) (unknown[facility]) Result panel 2167 (unknown) (no date) (unknown) [facility]) Result panel 2168 (unknown) (no date) (unknown) [facility]) Result panel 2169 (unknown) (no date) (unknown[facility]) Result panel 2170 (unknown) (no date) (unknown[facility]) Result panel 2171 (unknown) (no date) (unknown) [facility]) Result panel 2172 (unknown) (no date) (unknown[facility]) Result panel 2173 (unknown) (no date) (unknown) [facility]) Result panel 2174 (unknown) (no date) (unknown) [facility]) Result panel 2175 (unknown) (no date) (unknown) [facility] Result panel 2176 (unknown) (no date) (unknown) [facility]) Result panel 2177 (unknown) (no date) (unknown) [facility]) Result panel 2178 (unknown) (no date) (unknown) [facility]) Result panel 2179 (unknown) (no date) (unknown) [facility]) Result panel 2180 (unknown) (no date) (unknown) [facility]) Result panel 2181 (unknown) (no date) (unknown) [facility]) Result panel 2182 (unknown) (no date) (unknown[facility]) Result panel 2183 (unknown) (no date) (unknown[facility]) Result panel 2184 (unknown) (no date) (unknown) [facility]) Result panel 2185 (unknown) (no date) (unknown) [facility]) Result panel 2186 (unknown) (no date) (unknown) [facility]) Result panel 2187 (unknown) (no date) (unknown[facility]) Result panel 2188 (unknown) (no date) (unknown[facility]) Result panel 2189 (unknown) (no date) (unknown) [facility]) Result panel 2190 (unknown) (no date) (unknown) [facility]) Result panel 2191 (unknown) (no date) (unknown) [facility]) Result panel 2192 (unknown) (no date) (unknown) [facility]) Result panel 2193 (unknown) (no date) (unknown) [facility]) Result panel 2194 (unknown) (no date) (unknown) [facility]) Result panel 2195 (unknown) (no date) (unknown) [facility]) Result panel 2196 (unknown) (no date) (unknown) [facility]) Result panel 2197 (unknown) (no date) (unknown) [facility]) Result panel 2198 (unknown) (no date) (unknown) [facility]) Result panel 2199 (unknown) (no date) (unknown) [facility]) Result panel 2200 (unknown) (no date) (unknown) [facility]) Result panel 2201 (unknown) (no date) (unknown) [facility]) Result panel 2202 (unknown) (no date) (unknown) [facility]) Result panel 2203 (unknown) (no date) (unknown) [facility]) Result panel 2204 (unknown) (no date) (unknown) [facility]) Result panel 2205 (unknown) (no date) (unknown) [facility]) Result panel 2206 (unknown) (no date) (unknown) [facility]) Result panel 2207 (unknown) (no date) (unknown) [facility]) Result panel 2208 (unknown) (no date) (unknown[facility]) Result panel 2209 (unknown) (no date) (unknown) [facility]) Result panel 2210 (unknown) (no date) (unknown) [facility]) Result panel 2211 (unknown) (no date) (unknown) [facility]) Result panel 2212 (unknown) (no date) (unknown) [facility]) Result panel 2213 (unknown) (no date) (unknown) [facility]) Result panel 2214 (unknown) (no date) (unknown) [facility]) Result panel 2215 (unknown) (no date) (unknown) [facility]) Result panel 2216 (unknown) (no date) (unknown) [facility]) Result panel 2217 (unknown) (no date) (unknown) [facility]) Result panel 2218 (unknown) (no date) (unknown) [facility]) Result panel 2219 (unknown) (no date) (unknown) [facility]) Result panel 2220 (unknown) (no date) (unknown) [facility]) Result panel 2221 (unknown) (no date) (unknown[facility]) Result panel 2222 (unknown) (no date) (unknown) [facility]) Result panel 2223 (unknown) (no date) (unknown) [facility]) Result panel 2224 (unknown) (no date) (unknown) [facility]) Result panel 2225 (unknown) (no date) (unknown) [facility]) Result panel 2226 (unknown) (no date) (unknown) [facility]) Result panel 2227 (unknown) (no date) (unknown) [facility]) Result panel 2228 (unknown) (no date) (unknown) [facility]) Result panel 2229 (unknown) (no date) (unknown) [facility]) Result panel 2230 (unknown) (no date) (unknown) [facility]) Result panel 2231 (unknown) (no date) (unknown) [facility]) Result panel 2232 (unknown) (no date) (unknown) [facility]) Result panel 2233 (unknown) (no date) (unknown) [facility]) Result panel 2234 (unknown) (no date) (unknown) [facility]) Result panel 2235 (unknown) (no date) (unknown) [facility]) Result panel 2236 (unknown) (no date) (unknown) [facility]) Result panel 2237 (unknown) (no date) (unknown) [facility]) Result panel 2238 (unknown) (no date) (unknown) [facility]) Result panel 2239 (unknown) (no date) (unknown) [facility]) Result panel 2240 (unknown) (no date) (unknown) [facility]) Result panel 2241 (unknown) (no date) (unknown) [facility]) Result panel 2242 (unknown) (no date) (unknown) [facility]) Result panel 2243 (unknown) (no date) (unknown) [facility]) Result panel 2244 (unknown) (no date) (unknown) [facility]) Result panel 2245 (unknown) (no date) (unknown) [facility]) Result panel 2246 (unknown) (no date) (unknown) [facility]) Result panel 2247 (unknown) (no date) (unknown) [facility]) Result panel 2248 (unknown) (no date) (unknown) [facility]) Result panel 2249 (unknown) (no date) (unknown) [facility]) Result panel 2250 (unknown) (no date) (unknown) [facility]) Result panel 2251 (unknown) (no date) (unknown) [facility]) Result panel 2252 (unknown) (no date) (unknown) [facility]) Result panel 2253 (unknown) (no date) (unknown) [facility]) Result panel 2254 (unknown) (no date) (unknown) [facility]) Result panel 2255 (unknown) (no date) (unknown) [facility]) Result panel 2256 (unknown) (no date) (unknown) [facility]) Result panel 2257 (unknown) (no date) (unknown) [facility]) Result panel 2258 (unknown) (no date) (unknown) [facility]) Result panel 2259 (unknown) (no date) (unknown) [facility]) Result panel 2260 (unknown) (no date) (unknown) [facility]) Result panel 2261 (unknown) (no date) (unknown) [facility]) Result panel 2262 (unknown) (no date) (unknown) [facility]) Result panel 2263 (unknown) (no date) (unknown) [facility]) Result panel 2264 (unknown) (no date) (unknown) [facility]) Result panel 2265 (unknown) (no date) (unknown) [facility]) Result panel 2266 (unknown) (no date) (unknown) [facility]) Result panel 2267 (unknown) (no date) (unknown) [facility]) Result panel 2268 (unknown) (no date) (unknown) [facility]) Result panel 2269 (unknown) (no date) (unknown) [facility]) Result panel 2270 (unknown) (no date) (unknown) [facility]) Result panel 2271 (unknown) (no date) (unknown) [facility]) Result panel 2272 (unknown) (no date) (unknown) [facility]) Result panel 2273 (unknown) (no date) (unknown) [facility]) Result panel 2274 (unknown) (no date) (unknown) [facility]) Result panel 2275 (unknown) (no date) (unknown) [facility]) Result panel 2276 (unknown) (no date) (unknown) [facility]) Result panel 2277 (unknown) (no date) (unknown) [facility]) Result panel 2278 (unknown) (no date) (unknown) [facility]) Result panel 2279 (unknown) (no date) (unknown) [facility]) Result panel 2280 (unknown) (no date) (unknown) [facility]) Result panel 2281 (unknown) (no date) (unknown) [facility]) Result panel 2282 (unknown) (no date) (unknown) [facility]) Result panel 2283 (unknown) (no date) (unknown) [facility]) Result panel 2284 (unknown) (no date) (unknown) [facility]) Result panel 2285 (unknown) (no date) (unknown) [facility]) Result panel 2286 (unknown) (no date) (unknown) [facility]) Result panel 2287 (unknown) (no date) (unknown) [facility]) Result panel 2288 (unknown) (no date) (unknown) [facility]) Result panel 2289 (unknown) (no date) (unknown) [facility]) Result panel 2290 (unknown) (no date) (unknown) [facility]) Result panel 2291 (unknown) (no date) (unknown) [facility]) Result panel 2292 (unknown) (no date) (unknown) [facility]) Result panel 2293 (unknown) (no date) (unknown) [facility]) Result panel 2294 (unknown) (no date) (unknown) [facility]) Result panel 2295 (unknown) (no date) (unknown) [facility]) Result panel 2296 (unknown) (no date) (unknown) [facility]) Result panel 2297 (unknown) (no date) (unknown) [facility]) Result panel 2298 (unknown) (no date) (unknown) [facility]) Result panel 2299 (unknown) (no date) (unknown) [facility]) Result panel 2300 (unknown) (no date) (unknown) [facility]) Result panel 2301 (unknown) (no date) (unknown) [facility]) Result panel 2302 (unknown) (no date) (unknown) [facility]) Result panel 2303 (unknown) (no date) (unknown) [facility]) Result panel 2304 (unknown) (no date) (unknown) [facility]) Result panel 2305 (unknown) (no date) (unknown) [facility]) Result panel 2306 (unknown) (no date) (unknown) [facility]) Result panel 2307 (unknown) (no date) (unknown) [facility]) Result panel 2308 (unknown) (no date) (unknown) [facility]) Result panel 2309 (unknown) (no date) (unknown) [facility]) Result panel 2310 (unknown) (no date) (unknown) [facility]) Result panel 2311 (unknown) (no date) (unknown) [facility]) Result panel 2312 (unknown) (no date) (unknown) [facility]) Result panel 2313 (unknown) (no date) (unknown) [facility]) Result panel 2314 (unknown) (no date) (unknown) [facility]) Result panel 2315 (unknown) (no date) (unknown) [facility]) Result panel 2316 (unknown) (no date) (unknown) [facility]) Result panel 2317 (unknown) (no date) (unknown) [facility]) Result panel 2318 (unknown) (no date) (unknown) [facility]) Result panel 2319 (unknown) (no date) (unknown) [facility]) Result panel 2320 (unknown) (no date) (unknown) [facility]) Result panel 2321 (unknown) (no date) (unknown) [facility]) Result panel 2322 (unknown) (no date) (unknown) [facility]) Result panel 2323 (unknown) (no date) (unknown) [facility]) Result panel 2324 (unknown) (no date) (unknown) [facility]) Result panel 2325 (unknown) (no date) (unknown) [facility]) Result panel 2326 (unknown) (no date) (unknown) [facility]) Result panel 2327 (unknown) (no date) (unknown) [facility]) Result panel 2328 (unknown) (no date) (unknown) [facility]) Result panel 2329 (unknown) (no date) (unknown) [facility]) Result panel 2330 (unknown) (no date) (unknown) [facility] Result panel 2331 (unknown) (no (unknown) (unknown) (no value) (units (unk nown) date) unknown) (unknown) (no (unknown) (unknown) (1-3) #30 tabs (units (unknown) date) unknown) (unknown) (no (unknown) (unknown) (Benadryl) caps (units (unknown) date) unknown) (unknown) (no (unknown) (unknown) (Colace) (units (unkno wn) date) unknown) (unknown) (no (unknown) (unknown) (Tylenol) (units (unkn own) date) unknown) (unknown) (no (unknown) (unknown) [id number] (units (unkn own) date) unknown) (unknown) (no [...] (unknown) (unknown) : 1990 (units (unknown) date) Acct:[id number] unknown) (unknown) (no (unknown) (unknown) Date of [...] extraction (-2013) unknown) (unknown) (no (unknown) (unknown) HPI - Abdominal (units (unknown) date) Pain unknown) (unknown) (no (unknown) (unknown) Home Medications (units (unknown) date) unknown) (unknown) (no (unknown) (unknown) Insomnia (units (unkno wn) date) unknown) (unknown) (no (unknown) (unknown) [facility] (units (unknown) date) [address] unknown) [place] [address] (unknown) (no (unknown) (unknown) Medical History (units [...] (unknown) Patient: (units (unkno wn) date) Sarah Connors R unknown) MR#: M (unknown) (no (unknown) [...] date) college unknown) (unknown) (no (unknown) (unknown) renee/zoroastrianism: (units (unknown) date) Buddhist unknown) (unknown) (no (unknown) (unknown) household members: [...] (no (unknown) (unknown) prenat.vits,otis,mi (units (unknown) date) [id number] 1 tab unknown) PO DAILY 12/30/19 07/03/20 (unknown) (no (unknown) (unknown) prenat.vits,otis,mi (units (unknown) date) c-hrrr-cmicn Tablet unknown) (unknown) (no (unknown) (unknown) second [...] (unknown) date) #30 tabs unknown) Result panel 2332 (unknown) (no (unknown) (unknown) (no value) (units (unk nown) date) unknown) (unknown) (no (unknown) (unknown) (1-3) #30 tabs (units (unknown) date) unknown) (unknown) (no (unknown) (unknown) (Benadryl) caps (units (unknown) date) unknown) (unknown) (no (unknown) (unknown) (Colace) (units (unkno wn) date) unknown) (unknown) (no (unknown) (unknown) (Tylenol) (units (unkn own) date) unknown) (unknown) (no (unknown) (unknown) [id number] (units (unkn own) date) unknown) (unknown) (no [...] (unknown) (unknown) : 1990 (units (unknown) date) Acct:[id number] unknown) (unknown) (no (unknown) (unknown) Date of [...] wn) date) unknown) (unknown) (no (unknown) (unknown) [facility] (units (unknown) date) [address] unknown) [place] [address] (unknown) (no (unknown) (unknown) MUSCULOSKELETAL: (units (unknown) [...] (unknown) (unknown) Patient: (units (unkno wn) date) DorySarah R unknown) MR#: M (unknown) (no (unknown) [...] (Reviewed 06/12/22 unknown) @ 06:13 by Reinaldo Arhtur DO) (unknown) (no (unknown) (unknown) Stated Complaint: [...] date) college unknown) (unknown) (no (unknown) (unknown) renee/zoroastrianism: (units (unknown) date) Buddhist unknown) (unknown) (no (unknown) (unknown) household members: [...] (no (unknown) (unknown) prenat.vits,otis,mi (units (unknown) date) c-[id number] 1 tab unknown) PO DAILY 12/30/19 07/03/20 (unknown) (no (unknown) (unknown) prenat.vits,otis,mi (units (unknown) date) w-etqn-hcere Tablet unknown) (unknown) (no (unknown) (unknown) rales, [...] 2 days of severe lower Result panel 2333 (unknown) (no (unknown) (unknown) (no value) (units (unk nown) date) unknown) (unknown) (no (unknown) (unknown) (1-3) #30 tabs (units (unknown) date) unknown) (unknown) (no (unknown) (unknown) (Benadryl) caps (units (unknown) date) unknown) (unknown) (no (unknown) (unknown) (Colace) (units (unkno wn) date) unknown) (unknown) (no (unknown) (unknown) (Tylenol) (units (unkn own) date) unknown) (unknown) (no (unknown) (unknown) [id number] (units (unkn own) date) unknown) (unknown) (no [...] (unknown) (unknown) : 1990 (units (unknown) date) Acct:[id number] unknown) (unknown) (no (unknown) (unknown) Date of [...] wn) date) unknown) (unknown) (no (unknown) (unknown) [facility] (units (unknown) date) [address] [place] [address] unknown) [place] [address] (unknown) (no (unknown) (unknown) Lab Data (units [...] (unknown) Patient: (units (unkno wn) date) Sarah Connors R unknown) MR#: M (unknown) (no (unknown) [...] date) college unknown) (unknown) (no (unknown) (unknown) renee/zoroastrianism: (units (unknown) date) Buddhist unknown) (unknown) (no (unknown) (unknown) household members: [...] (no (unknown) (unknown) prenat.vits,otis,mi (units (unknown) date) t-hycz-xkvox 1 tab unknown) PO DAILY 12/30/19 07/03/20 (unknown) (no (unknown) (unknown) prenat.vits,otis,mi (units (unknown) date) e-pldo-oessm Tablet unknown) (unknown) (no (unknown) (unknown) rales, [...] 2 days of severe lower Result panel 2334 (unknown) (no date) (unknown) (unknown) > 60 [...] (unknown) 99 mmol/l (unkn own) Result panel 2335 (unknown) (no date) (unknown) (unknown) 0 /ul [...] (unknown) 78.4 fl (unkn own) Result panel 2336 (unknown) (no (unknown) (unknown) (no value) (units (unk nown) date) unknown) (unknown) (no (unknown) (unknown) (1-3) #30 tabs (units (unknown) date) unknown) (unknown) (no (unknown) (unknown) (Benadryl) caps (units (unknown) date) unknown) (unknown) (no (unknown) (unknown) (Colace) (units (unkno wn) date) unknown) (unknown) (no (unknown) (unknown) (Tylenol) (units (unkn own) date) unknown) (unknown) (no (unknown) (unknown) [id number] (units (unkn own) date) unknown) (unknown) (no [...] (unknown) (unknown) : 1990 (units (unknown) date) Acct:[id number] unknown) (unknown) (no (unknown) (unknown) Date of [...] wn) date) unknown) (unknown) (no (unknown) (unknown) [facility] (units (unknown) date) [address] [place] [address] unknown) [place] [address] (unknown) (no (unknown) (unknown) Lab Data (units [...] # (Auto) (units (unknown) date) 1000 L (4534-8021) unknown) /uL (unknown) (no (unknown) (unknown) Lymph [...] (unknown) date) unknown) (unknown) (no (unknown) (unknown) Yates # (Auto) 200 (units (unknown) date) (0-900) /uL unknown) (unknown) (no (unknown) (unknown) Yates % (Auto) 4.8 (units (unknown) date) (3-14) [...] Neut # (Auto) 2800 (units (unknown) date) (2525-8771) /uL unknown) (unknown) (no (unknown) (unknown) Neut [...] (unknown) Patient: (units (unkno wn) date) Sarah Connors R unknown) MR#: M (unknown) (no (unknown) [...] date) college unknown) (unknown) (no (unknown) (unknown) renee/zoroastrianism: (units (unknown) date) Buddhist unknown) (unknown) (no (unknown) (unknown) household members: [...] (no (unknown) (unknown) prenat.vits,otis,mi (units (unknown) date) t-mwks-ecdhb 1 tab unknown) PO DAILY 12/30/19 07/03/20 (unknown) (no (unknown) (unknown) prenat.vits,otis,mi (units (unknown) date) m-bcgy-mivnb Tablet unknown) (unknown) (no (unknown) (unknown) rales, [...] 2 days of severe lower Result panel 2337 (unknown) (no date) (unknown) (unknown) Negative (units (unkn own) unknown) Result panel 2338 (unknown) (no (unknown) (unknown) (no value) (units (unk nown) date) unknown) (unknown) (no (unknown) (unknown) <Electronically (units (unknown) date) signed by Cayden ConnOForest> (unknown) (no (unknown) (unknown) <Reinaldo Arthur DO (units (unknown) date) - Last Filed: unknown) 06/12/22 06:16> (unknown) (no (unknown) (unknown) <Will Benitez, (units (unknown) date) - Last Filed: unknown) 06/12/22 08:53> (unknown) (no (unknown) (unknown) (1-3) #30 tabs (units (unknown) date) unknown) (unknown) (no (unknown) (unknown) (Benadryl) caps (units (unknown) date) unknown) (unknown) (no (unknown) (unknown) (Colace) (units (unkno wn) date) unknown) (unknown) (no (unknown) (unknown) (Tylenol) (units (unkn own) date) unknown) (unknown) (no (unknown) (unknown) [id number] (units (unkn own) date) unknown) (unknown) (no [...] (unknown) (unknown) : 1990 (units (unknown) date) Acct:[id number] unknown) (unknown) (no (unknown) (unknown) Date of [...] Abdominal unknown) Pain-Adult (unknown) (no (unknown) (unknown) [facility] (units (unknown) date) [address] [place] [address] unknown) [place] [address] (unknown) (no (unknown) (unknown) Lab Data (units [...] (unknown) Lymph # (Auto) (units (unknown) date) (9961-1916) /uL unknown) (unknown) (no (unknown) (unknown) Lymph # (Auto) (units (unknown) date) 1000 L (4835-0570) unknown) /uL (unknown) (no (unknown) (unknown) Lymph [...] (unknown) date) unknown) (unknown) (no (unknown) (unknown) Yates # (Auto) (units ( unknown) date) (0-900) /uL unknown) (unknown) (no (unknown) (unknown) Yates # (Auto) 200 (units (unknown) date) (0-900) /uL unknown) (unknown) (no (unknown) (unknown) Yates % (Auto) (units ( unknown) date) (3-14) % unknown) (unknown) (no (unknown) (unknown) Yates % (Auto) 4.8 (units (unknown) date) (3-14) [...] Neut # (Auto) (units ( unknown) date) (2684-1207) /uL unknown) (unknown) (no (unknown) (unknown) Neut # (Auto) 2800 (units (unknown) date) (0413-5157) /uL unknown) (unknown) (no (unknown) (unknown) Neut [...] (unknown) Patient: (units (unkno wn) date) Sarah Connors R unknown) MR#: M (unknown) (no (unknown) [...] or worsening symptoms. (unknown) (no (unknown) (unknown) renee/zoroastrianism: (units (unknown) date) Buddhist unknown) (unknown) (no (unknown) (unknown) fluid intake. [...] (no (unknown) (unknown) prenat.vits,otis,mi (units (unknown) date) e-ofso-rvuwz 1 tab unknown) PO DAILY 12/30/19 07/03/20 (unknown) (no (unknown) (unknown) prenat.vits,otis,mi (units (unknown) date) k-cpct-tduvm Tablet unknown) (unknown) (no (unknown) (unknown) rales, [...] 2 days of severe lower Result panel 2339 (unknown) (no date) (unknown) (unknown) Flu A (units (unkn own) NEGATIVE unknown) (unknown) (no date) (unknown) (unknown) Flu B (units (unkn own) NEGATIVE unknown) (unknown) (no date) (unknown) (unknown) Negative (units (unkn own) unknown) (unknown) (no date) (unknown) (unknown) Negative (units (unkn own) unknown) Result panel 2340 (unknown) (no (unknown) (unknown) (no value) (units (unk nown) date) unknown) (unknown) (no (unknown) (unknown) <Electronically (units (unknown) date) signed by Reinaldo unknown) Cayden ArthurOForest> (unknown) (no (unknown) (unknown) <Electronically (units (unknown) date) signed by Will unknown) Miguel Benitez> (unknown) (no (unknown) (unknown) <Reinaldo Arthur DO (units (unknown) date) - Last Filed: unknown) 06/13/22 01:34> (unknown) (no (unknown) (unknown) <Will Benitez, (units (unknown) date) DO - Last Filed: unknown) 06/12/22 08:53> (unknown) (no (unknown) (unknown) (1-3) #30 tabs (units (unknown) date) unknown) (unknown) (no (unknown) (unknown) (Benadryl) caps (units (unknown) date) unknown) (unknown) (no (unknown) (unknown) (Colace) (units (unkno wn) date) unknown) (unknown) (no (unknown) (unknown) (Tylenol) (units (unkn own) date) unknown) (unknown) (no (unknown) (unknown) [phone] (units (unkn own) date) unknown) (unknown) (no [...] (unknown) (unknown) : 1990 (units (unknown) date) Acct:[id number] unknown) (unknown) (no (unknown) (unknown) Date of [...] Abdominal unknown) Pain-Adult (unknown) (no (unknown) (unknown) [facility] (units (unknown) date) [address] unknown) [place] [address] (unknown) (no (unknown) (unknown) Lab Data (units [...] (unknown) Lymph # (Auto) (units (unknown) date) (6902-2635) /uL unknown) (unknown) (no (unknown) (unknown) Lymph # (Auto) (units (unknown) date) 1000 L (8800-7965) unknown) /uL (unknown) (no (unknown) (unknown) Lymph [...] (unknown) date) unknown) (unknown) (no (unknown) (unknown) Yates # (Auto) (units ( unknown) date) (0-900) /uL unknown) (unknown) (no (unknown) (unknown) Yates # (Auto) 200 (units (unknown) date) (0-900) /uL unknown) (unknown) (no (unknown) (unknown) Yates % (Auto) (units ( unknown) date) (3-14) % unknown) (unknown) (no (unknown) (unknown) Yates % (Auto) 4.8 (units (unknown) date) (3-14) [...] Neut # (Auto) (units ( unknown) date) (8136-8981) /uL unknown) (unknown) (no (unknown) (unknown) Neut # (Auto) 2800 (units (unknown) date) (2989-2559) /uL unknown) (unknown) (no (unknown) (unknown) Neut [...] (unknown) Patient: (units (unkno wn) date) Sarah Connors R unknown) MR#: M (unknown) (no (unknown) [...] (unknown) (unknown) Respiratory Rate (units (unknown) date) unknown) (unknown) (no (unknown) (unknown) Review [...] or worsening symptoms. (unknown) (no (unknown) (unknown) renee/zoroastrianism: (units (unknown) date) Buddhist unknown) (unknown) (no (unknown) (unknown) fluid intake. [...] (no (unknown) (unknown) prenat.vits,otis,mi (units (unknown) date) r-vbtd-xmkid 1 tab unknown) PO DAILY 12/30/19 07/03/20 (unknown) (no (unknown) (unknown) prenat.vits,otis,mi (units (unknown) date) c-mbih-crgdu Tablet unknown) (unknown) (no (unknown) (unknown) rales, [...] 2 days of severe lower Result panel 2341 (unknown) (no date) (unknown) (unknown) Negative (units (unkn own) unknown) (unknown) (no date) (unknown) (unknown) Normal (units (unkn own) unknown) Result panel 2342 (unknown) (no date) (unknown) (unknown) Negative (units (unkn own) unknown) (unknown) (no date) (unknown) (unknown) Negative (units (unkn own) unknown) Result panel 2343 (unknown) (no (unknown) (unknown) (no value) (units (unk nown) date) unknown) (unknown) (no (unknown) (unknown) (1-3) #30 tabs (units (unknown) date) unknown) (unknown) (no (unknown) (unknown) (Benadryl) caps (units (unknown) date) unknown) (unknown) (no (unknown) (unknown) (Colace) (units (unkno wn) date) unknown) (unknown) (no (unknown) (unknown) (Tylenol) (units (unkn own) date) unknown) (unknown) (no (unknown) (unknown) [id number] (units (unkn own) date) unknown) (unknown) (no (unknown) (unknown) 07/12/22 07/12/22 (units (unknown) date) Range/Units unknown) (unknown) (no (unknown) (unknown) 07/12/22 16:28 (units (unknown) date) unknown) (unknown) (no (unknown) (unknown) 07/12/22 16:32 (units (unknown) date) unknown) (unknown) (no (unknown) (unknown) 07/12/22 17:06 (units (unknown) date) unknown) (unknown) (no (unknown) (unknown) 07/12/22 17:44 (units (unknown) date) unknown) (unknown) (no (unknown) (unknown) 07/12/22 (units (unkno wn) date) unknown) (unknown) (no (unknown) (unknown) 1 tab PO DAILY (units (unknown) date) unknown) (unknown) (no (unknown) (unknown) 100 mg PO BID Qty: (units (unknown) date) 30 0RF unknown) (unknown) (no (unknown) (unknown) 16:10 (units (unkno wn) date) unknown) (unknown) (no (unknown) (unknown) 16:32 16:32 (units (un known) date) unknown) (unknown) (no (unknown) (unknown) 2022 with similar (units (unknown) date) symptoms. She comes unknown) in complaining of needing help, states (unknown) (no (unknown) (unknown) 25 mg PO [...] Qty: 30 0RF (unknown) (no (unknown) (unknown) 9 points (units (unkno wn) date) unknown) (unknown) (no (unknown) (unknown) Acetaminophen Stat (units (unknown) date) unknown) (unknown) (no (unknown) (unknown) Age/Sex: 31 / F (units (unknown) date) unknown) (unknown) (no (unknown) (unknown) Agitation ?> 2 = (units (unknown) date) (More severe unknown) symptoms) (unknown) (no (unknown) (unknown) Alcoholism (units (unk nown) date) unknown) (unknown) (no (unknown) (unknown) Allergies (units (unkn own) date) unknown) (unknown) (no (unknown) (unknown) Allergy/AdvReac (units (unknown) date) Type Severity unknown) Reaction Status Date / Time (unknown) (no (unknown) (unknown) Anemia (-2018) (units (unknown) date) unknown) (unknown) (no (unknown) (unknown) Anxiety ?> 2 = (units (unknown) date) (More severe unknown) symptoms) (unknown) (no (unknown) (unknown) Auditory (units (unkno wn) date) disturbances ?> 1 = unknown) Very mild harshness or ability to frighten (unknown) (no (unknown) (unknown) Bedside Urine (units ( unknown) date) Bilirubin - unknown) Negative (unknown) (no (unknown) (unknown) Bedside Urine (units ( unknown) date) Glucose Negative unknown) (unknown) (no (unknown) (unknown) Bedside Urine (units ( unknown) date) Ketone - Negative unknown) (unknown) (no (unknown) (unknown) Bedside Urine (units ( unknown) date) Leukocytes - unknown) Negative (unknown) (no (unknown) (unknown) Bedside Urine (units ( unknown) date) Nitrite + Positive unknown) (unknown) (no (unknown) (unknown) Bedside Urine (units ( unknown) date) Occult Blood - unknown) Negative (unknown) (no (unknown) (unknown) Bedside Urine (units ( unknown) date) Protein - Negative unknown) (unknown) (no (unknown) (unknown) Bedside Urine (units ( unknown) date) Urobilinogen - unknown) Negative (unknown) (no (unknown) (unknown) Bedside Urine pH (units (unknown) date) 6.0 unknown) (unknown) (no (unknown) (unknown) Blood Pressure (units (unknown) date) 62 07/12/22 unknown) 16:10 (unknown) (no (unknown) (unknown) Blood Pressure (units (unknown) date) unknown) (unknown) (no (unknown) (unknown) CIWA-Ar for (units (un known) date) Alcohol Withdrawal unknown) from [facility] on 07/12/2022 (unknown) (no (unknown) (unknown) COVID19 -Nasal (units (unknown) date) RAPID/Pre-Proc Stat unknown) (unknown) (no (unknown) (unknown) Cardiovascular: (units (unknown) date) regular rate and unknown) rhythm, no peripheral edema, warm extremities (unknown) (no (unknown) (unknown) Chief Complaint: (units (unknown) date) Alcohol unknown) intoxication, seeking detox (unknown) (no (unknown) (unknown) Chief Complaint: (units (unknown) date) Toxicology Problem unknown) (unknown) (no (unknown) (unknown) Clinical decision (units (unknown) date) rules or scores unknown) evaluated: CIWA of 9 at 1753 (unknown) (no (unknown) (unknown) Complete Blood (units (unknown) date) Count AUTO DIFF unknown) Stat (unknown) (no (unknown) (unknown) Comprehensive (units ( unknown) date) Metabolic Panel unknown) Stat (unknown) (no (unknown) (unknown) Consult to WINDOWS MIGRATION TECHNICIAN - (units (unknown) date) 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 unknown) Stat (unknown) (no (unknown) (unknown) Course of care: (units (unknown) date) Patient is a unknown) difficult IV stick, ordered IV with lab work, (unknown) (no (unknown) (unknown) Course (units (unkno wn) date) unknown) (unknown) (no (unknown) (unknown) : 1990 (units (unknown) date) Acct:[id number] unknown) (unknown) (no (unknown) (unknown) Date of Service: (units (unknown) date) 07/12/22 unknown) (unknown) (no (unknown) (unknown) Departure (units (unkn own) date) unknown) (unknown) (no (unknown) (unknown) Differential (units (u nknown) date) diagnoses include unknown) but are not limited to: Alcohol withdrawal, (unknown) (no (unknown) (unknown) Discharge Plan (units (unknown) date) unknown) (unknown) (no (unknown) (unknown) Discontinued (units (u nknown) date) Medications unknown) (unknown) (no (unknown) (unknown) ECG Data (units (unkno wn) date) unknown) (unknown) (no (unknown) (unknown) ED Orders (units (unkn own) date) unknown) (unknown) (no (unknown) (unknown) EKG independently (units (unknown) date) reviewed by myself unknown) at [] reveals normal sinus rhythm at [] bpm (unknown) (no (unknown) (unknown) EKG-12 Lead Stat (units (unknown) date) unknown) (unknown) (no (unknown) (unknown) ER Physician: (units ( unknown) date) Juliet Paz unknown) LYUDMILA (unknown) (no (unknown) (unknown) Emergency Report (units (unknown) date) unknown) (unknown) (no (unknown) (unknown) Esterase (units (unkno wn) date) unknown) (unknown) (no (unknown) (unknown) Ethanol (ETOH) (units (unknown) date) Stat unknown) (unknown) (no (unknown) (unknown) Exam Narrative: (units (unknown) date) unknown) (unknown) (no (unknown) (unknown) Exam (units (unkno wn) date) unknown) (unknown) (no (unknown) (unknown) Family History (units (unknown) date) (Reviewed 07/12/22 unknown) @ 17:50 by LYUDMILA Do) (unknown) (no (unknown) (unknown) Family/Other (units (u nknown) date) Alcoholism unknown) (unknown) (no (unknown) (unknown) Family/Other (units (u nknown) date) Diabetes mellitus unknown) (unknown) (no (unknown) (unknown) Father Alcoholism (units (unknown) date) unknown) (unknown) (no (unknown) (unknown) Tonia Schneider MD (units (unknown) date) [Primary Care unknown) Provider] (unknown) (no (unknown) (unknown) Folic Acid (Folic (units (unknown) date) Acid 1 Mg Tablet) 1 unknown) mg PO DAILY SANDY (unknown) (no (unknown) (unknown) Free T4, Direct (units (unknown) date) Thyroxine Stat unknown) (unknown) (no (unknown) (unknown) GI: abdomen soft, (units (unknown) date) nontender to unknown) palpation, nondistended, without masses, rebound (unknown) (no (unknown) (unknown) General (units (unkno wn) date) unknown) (unknown) (no (unknown) (unknown) General: (units (unkno wn) date) cooperative, unknown) comfortable, in no acute distress, well groomed, appears (unknown) (no (unknown) (unknown) Grandfather (units (un [...] extraction () unknown) (unknown) (no (unknown) (unknown) HEENT: symmetrical (units (unknown) date) facial expressions, unknown) dry mucous membranes (unknown) (no (unknown) (unknown) HPI - Alcohol (units ( unknown) date) unknown) (unknown) (no (unknown) (unknown) HPI narrative: (units (unknown) date) unknown) (unknown) (no (unknown) (unknown) Headache/fullness (units (unknown) date) in head ?> 1 = Very unknown) mild (unknown) (no (unknown) (unknown) History of Present (units (unknown) date) Illness unknown) (unknown) (no (unknown) (unknown) Home Medications (units (unknown) date) unknown) (unknown) (no (unknown) (unknown) I have (units (unkno wn) date) independently unknown) reviewed the patient's vital signs and nursing notes as (unknown) (no (unknown) (unknown) INPUTS: (units (unkno wn) date) unknown) (unknown) (no (unknown) (unknown) Independent (units (un known) date) historian: Patient unknown) (unknown) (no (unknown) (unknown) Initial Vital (units ( unknown) date) Signs unknown) (unknown) (no (unknown) (unknown) Initial Vital (units ( unknown) date) Signs: unknown) (unknown) (no (unknown) (unknown) Insomnia (units (unkno wn) date) unknown) (unknown) (no (unknown) (unknown) Interpretation: (units (unknown) date) unknown) (unknown) (no (unknown) (unknown) [facility] (units (unknown) date) [address] [place] [address] unknown) [place] [address] (unknown) (no (unknown) (unknown) Lab Data (units (unkno wn) date) unknown) (unknown) (no (unknown) (unknown) Lab Results (units (un known) date) unknown) (unknown) (no (unknown) (unknown) Labs: (units (unkno wn) date) unknown) (unknown) (no (unknown) (unknown) Lorazepam (units (unkn own) date) (Lorazepam 2 Mg/Ml unknown) Inj) 2 mg IV NOW ONE (unknown) (no (unknown) (unknown) MDM - Alcohol (units ( unknown) date) unknown) (unknown) (no (unknown) (unknown) MDM Narrative (units ( unknown) date) unknown) (unknown) (no (unknown) (unknown) MIPS: This (units (unk nown) date) encounter doesn't unknown) have any diagnosis' associated with MIPS criteria. (unknown) (no (unknown) (unknown) MSK: moves all (units (unknown) date) extremities, unknown) neurovascularly intact, no weakness, normal tone no (unknown) (no (unknown) (unknown) Medical History (units (unknown) date) (Reviewed 07/12/22 unknown) @ 17:50 by LYUDMILA Do) (unknown) (no (unknown) (unknown) Medical decision (units (unknown) date) making narrative: unknown) (unknown) (no (unknown) (unknown) Medication (units (unk nown) date) Instructions unknown) Recorded Confirmed (unknown) (no (unknown) (unknown) Medication (units (unk nown) date) Instructions unknown) Recorded (unknown) (no (unknown) (unknown) Menometrorrhagia (units (unknown) date) unknown) (unknown) (no (unknown) (unknown) Mode of arrival: (units (unknown) date) Ambulatory unknown) (unknown) (no (unknown) (unknown) Mother Diabetes (units (unknown) date) mellitus unknown) (unknown) (no (unknown) (unknown) Narrative (units (unkn own) date) unknown) (unknown) (no (unknown) (unknown) Nausea/vomiting ?> (units (unknown) date) 0 = No nausea and unknown) no vomiting (unknown) (no (unknown) (unknown) Neuro: normal (units ( unknown) date) speech and unknown) cognition, A+O x3, ambulatory, clear speech (unknown) (no (unknown) (unknown) No Action (units (unkn own) date) unknown) (unknown) (no (unknown) (unknown) Obesity (units (unkno wn) date) unknown) (unknown) (no (unknown) (unknown) Ondansetron HCl (units (unknown) date) (Ondansetron 4 Mg/2 unknown) Ml Inj) 4 mg IV Q6HR PRN (unknown) (no (unknown) (unknown) Ordered: (units (unkno wn) date) unknown) (unknown) (no (unknown) (unknown) Orders (units (unkno wn) date) unknown) (unknown) (no (unknown) (unknown) Orientation/cloudi (units (unknown) date) ng of sensorium ?> unknown) 0 = Oriented, can do serial additions (unknown) (no (unknown) (unknown) Overweight (units (unk nown) date) unknown) (unknown) (no (unknown) (unknown) Oxygen Delivery (units (unknown) date) Method Room Air unknown) 07/12/22 16:10 (unknown) (no (unknown) (unknown) Oxygen Delivery (units (unknown) date) Method Room Air unknown) (unknown) (no (unknown) (unknown) PRN Reason: Nausea (units (unknown) date) And Vomiting unknown) (unknown) (no (unknown) (unknown) Paroxysmal sweats (units (unknown) date) ?> 0 = No sweat unknown) visible (unknown) (no (unknown) (unknown) Patient History (units (unknown) date) unknown) (unknown) (no (unknown) (unknown) Patient is (units (unk nown) date) appropriate for unknown) outpatient management. (unknown) (no (unknown) (unknown) Patient: (units (unkno wn) date) Sarah Connors R unknown) MR#: M (unknown) (no (unknown) (unknown) Patients with (units ( unknown) date) scores >= may unknown) require medication for withdrawal. (unknown) (no (unknown) (unknown) Pertinent lab (units ( unknown) date) findings reviewed: unknown) (unknown) (no (unknown) (unknown) Point of Care (units ( unknown) date) Testing unknown) (unknown) (no (unknown) (unknown) Test (units (unknown) date) Results Negative unknown) (unknown) (no (unknown) (unknown) Prescriptions: (units (unknown) date) unknown) (unknown) (no (unknown) (unknown) Previous Rx's (units ( unknown) date) unknown) (unknown) (no (unknown) (unknown) Psych: mental (units ( unknown) date) status is grossly unknown) normal, congruent mood, normal affect, pleasant (unknown) (no (unknown) (unknown) Pulse Oximetry 99 (units (unknown) date) 07/12/22 16:10 unknown) (unknown) (no (unknown) (unknown) Pulse Oximetry 99 (units (unknown) date) unknown) (unknown) (no (unknown) (unknown) Pulse Rate 82 (units ( unknown) date) 07/12/22 16:10 unknown) (unknown) (no (unknown) (unknown) Pulse Rate 82 (units ( unknown) date) unknown) (unknown) (no (unknown) (unknown) Questions are (units ( unknown) date) addressed and there unknown) is agreement with the plan and for follow-up. (unknown) (no (unknown) (unknown) RESULT SUMMARY: (units (unknown) date) unknown) (unknown) (no (unknown) (unknown) ROS Unobtainable: (units (unknown) date) All systems unknown) reviewed + are unremarkable except as noted in HPI (unknown) (no (unknown) (unknown) Referrals: (units (unk nown) date) unknown) (unknown) (no (unknown) (unknown) Related Data (units (u nknown) date) unknown) (unknown) (no (unknown) (unknown) Respiratory Rate (units (unknown) date) 14 07/12/22 16:10 unknown) (unknown) (no (unknown) (unknown) Respiratory Rate (units (unknown) date) 14 unknown) (unknown) (no (unknown) (unknown) Respiratory: (units (u nknown) date) normal effort, able unknown) to speak in complete sentences, without (unknown) (no (unknown) (unknown) Review of Systems (units (unknown) date) unknown) (unknown) (no (unknown) (unknown) Reviewed vitals (units (unknown) date) signs and nursing unknown) notes. (unknown) (no (unknown) (unknown) S/P myringotomy (units (unknown) date) with insertion of unknown) tube (unknown) (no (unknown) (unknown) SARS-CoV-2 (PCR) (units (unknown) date) Negative (Negative) unknown) (unknown) (no (unknown) (unknown) (spontaneous (units (unknown) date) vaginal delivery) unknown) (-09/05/18) (unknown) (no (unknown) (unknown) Salicylate Stat (units (unknown) date) unknown) (unknown) (no (unknown) (unknown) Signed By: (units (unk nown) date) unknown) (unknown) (no (unknown) (unknown) Skin: brisk (units (un known) date) capillary refill, unknown) without pallor or erythema (unknown) (no (unknown) (unknown) Smoker (units (unkno wn) date) unknown) (unknown) (no (unknown) (unknown) Smoking Status: (units (unknown) date) Former smoker unknown) (unknown) (no (unknown) (unknown) Social History (units (unknown) date) (Reviewed 07/12/22 unknown) @ 17:50 by LYUDMILA Do) (unknown) (no (unknown) (unknown) Social (units (unkno wn) date) considerations that unknown) may affect disposition: none (unknown) (no (unknown) (unknown) Sodium Chloride (units (unknown) date) (Normal Saline unknown) 0.9%) 1,000 mls @ 1,000 mls/hr IV BOLUS ONE (unknown) (no (unknown) (unknown) Source: patient (units (unknown) date) unknown) (unknown) (no (unknown) (unknown) Stated Complaint: (units (unknown) date) Stress/Depression unknown) (unknown) (no (unknown) (unknown) Stop: 07/12/22 (units (unknown) date) 17:33 unknown) (unknown) (no (unknown) (unknown) Stop: 07/12/22 (units (unknown) date) 17:45 unknown) (unknown) (no (unknown) (unknown) Stop: 07/12/22 (units (unknown) date) 18:31 unknown) (unknown) (no (unknown) (unknown) Substance Use (units ( unknown) date) Type: does not use unknown) (unknown) (no (unknown) (unknown) Surgical History (units (unknown) date) (Reviewed 07/12/22 unknown) @ 17:50 by Juliet Paz [facility]) (unknown) (no (unknown) (unknown) Tactile (units (unkno wn) date) disturbances ?> 1 = unknown) Very mild itching, pin and needles, burning, or (unknown) (no (unknown) (unknown) Temperature 97.2 F (units (unknown) date) L 07/12/22 16:10 unknown) (unknown) (no (unknown) (unknown) Temperature 97.2 F (units (unknown) date) L unknown) (unknown) (no (unknown) (unknown) Thiamine HCl 200 (units (unknown) date) mg/ Sodium unknown) (Chloride) 102 mls @ 408 mls/hr IV NOW ONE (unknown) (no (unknown) (unknown) This is a (units (unkn own) date) 31-year-old female unknown) with history of alcohol abuse and appears to have (unknown) (no (unknown) (unknown) Thyroid (units (unkno wn) date) Stimulating Hormone unknown) Stat (unknown) (no (unknown) (unknown) Time Seen by (units (u nknown) date) Provider: 07/12/22 unknown) 17:05 (unknown) (no (unknown) (unknown) Tremor ?> 1 = Not (units (unknown) date) visible, but can be unknown) felt fingertip to fingertip (unknown) (no (unknown) (unknown) U Benzodiazepines (units (unknown) date) Scrn Negative unknown) (Negative) (unknown) (no (unknown) (unknown) U Marijuana (THC) (units (unknown) date) Screen Negative unknown) (Negative) (unknown) (no (unknown) (unknown) U Methamphetamines (units (unknown) date) Scrn Negative unknown) (Negative) (unknown) (no (unknown) (unknown) U Opiates 300ng/mL (units (unknown) date) cut Negative unknown) (Negative) (unknown) (no (unknown) (unknown) U Tricyclic (units (un known) date) Antidepress unknown) Negative (Negative) (unknown) (no (unknown) (unknown) Ur Amphetamines (units (unknown) date) Screen Negative unknown) (Negative) (unknown) (no (unknown) (unknown) Ur Barbiturates (units (unknown) date) Screen Negative unknown) (Negative) (unknown) (no (unknown) (unknown) Ur MDMA Scrn (units (u nknown) date) (Ecstasy) Negative unknown) (Negative) (unknown) (no (unknown) (unknown) Ur Oxycodone (units (u nknown) date) Screen Negative unknown) (Negative) (unknown) (no (unknown) (unknown) Ur Phencyclidine (units (unknown) date) Scrn Negative unknown) (Negative) (unknown) (no (unknown) (unknown) Urine Cocaine (units ( unknown) date) Screen Negative unknown) (Negative) (unknown) (no (unknown) (unknown) Urine Dip (units (unkn own) date) unknown) (unknown) (no (unknown) (unknown) Urine Drug Screen, (units (unknown) date) Rapid Stat unknown) (unknown) (no (unknown) (unknown) Urine Methadone (units (unknown) date) Screen Negative unknown) (Negative) (unknown) (no (unknown) (unknown) Urine Microscopic (units (unknown) date) Stat unknown) (unknown) (no (unknown) (unknown) Urine Specific (units (unknown) date) [place] 1.015 unknown) (unknown) (no (unknown) (unknown) Visual (units (unkno wn) date) disturbances ?> 1 = unknown) Very mild sensitivity (unknown) (no (unknown) (unknown) Vital Signs - 8 hr (units (unknown) date) unknown) (unknown) (no (unknown) (unknown) Vital Signs (units (un known) date) unknown) (unknown) (no (unknown) (unknown) Vital signs: (units (u nknown) date) unknown) (unknown) (no (unknown) (unknown) [METOCLOPRAMIDE] (units (unknown) date) unknown) (unknown) (no (unknown) (unknown) acetaminophen 325 (units (unknown) date) mg tablet 325 mg PO unknown) Q6H PRN pain #20 tabs 02/05/20 (unknown) (no (unknown) (unknown) acetaminophen (units ( unknown) date) [Tylenol] 325 mg unknown) tablet (unknown) (no (unknown) (unknown) acute ischemic (units (unknown) date) changes. unknown) (unknown) (no (unknown) (unknown) alcohol in 300s, (units (unknown) date) she was last here unknown) in the emergency department in May of (unknown) (no (unknown) (unknown) alcohol intake (units (unknown) date) frequency: 3 or unknown) more drinks per day (unknown) (no (unknown) (unknown) alcohol intake: (units (unknown) date) former unknown) (unknown) (no (unknown) (unknown) and below (units (unkn own) date) unknown) (unknown) (no (unknown) (unknown) and cooperative (units (unknown) date) unknown) (unknown) (no (unknown) (unknown) at extension and (units (unknown) date) states that she unknown) feels symptoms of alcohol withdrawal. Denies (unknown) (no (unknown) (unknown) current (units (unkno wn) date) occupational unknown) exposures/hazards: Yes (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 with Pandemic ) (unknown) (no (unknown) (unknown) diarrhea or (units (un known) date) current stool unknown) changes. (unknown) (no (unknown) (unknown) diphenhydramine (units (unknown) [...] (unknown) emergency (units (unkn own) date) department on unknown) 06/18/2022 and a few days prior to that with a blood (unknown) (no (unknown) (unknown) renee/zoroastrianism: (units (unknown) date) Buddhist unknown) (unknown) (no (unknown) (unknown) fluid, EtOH, and (units (unknown) date) CIWA, ordered 2 mg unknown) of IV lorazepam for patient's symptoms, (unknown) (no (unknown) (unknown) for alcohol (units (un known) date) related complaints unknown) through 2019, [facility] (no (unknown) (unknown) household members: (units (unknown) date) spouse and children unknown) (unknown) (no (unknown) (unknown) hydrocodone (units (un known) date) [HYDROCODONE] unknown) AdvReac Unknown VOMITING Verified 07/12/22 16:18 (unknown) (no (unknown) (unknown) ibuprofen 600 mg (units (unknown) date) Tablet unknown) (unknown) (no (unknown) (unknown) ibuprofen 600 mg (units (unknown) date) tablet 600 mg PO unknown) Q6HR PRN Pain, Mild 07/04/20 (unknown) (no (unknown) (unknown) injuries, denies (units (unknown) date) chance of unknown) , denies any other ingestions, is pleasant, (unknown) (no (unknown) (unknown) intoxicated, (units (un known) date) pleasant, unknown) interactive and comfortable although active and fidgeting (unknown) (no (unknown) (unknown) limited history (units (unknown) date) currently due to unknown) intoxication. She states that she is recently (unknown) (no (unknown) (unknown) marital status: (units (unknown) date) unknown) (unknown) (no (unknown) (unknown) metoclopramide (units (unknown) date) Allergy Mild unknown) RASH/HIVES Verified 07/12/22 16:18 (unknown) (no (unknown) (unknown) nausea vomiting or (units (unknown) date) abdominal pain at unknown) this time. Denies any vomiting home or (unknown) (no (unknown) (unknown) number of (units (unkn own) date) children: 1 unknown) (unknown) (no (unknown) (unknown) numbness (units (unkno wn) date) unknown) (unknown) (no (unknown) (unknown) occupational [...] (no (unknown) (unknown) prenat.vits,otis,mi (units (unknown) date) [id number] 1 tab unknown) PO DAILY 12/30/19 07/03/20 (unknown) (no (unknown) (unknown) prenat.vits,otis,mi (units (unknown) date) [id number] Tablet unknown) (unknown) (no (unknown) (unknown) relapsed due to a (units (unknown) date) divorce with her unknown) . 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 (unknown) (no (unknown) (unknown) significant tremor (units (unknown) date) or tongue unknown) fasciculation, she has a mild tremor with her arms (unknown) (no (unknown) (unknown) social work and (units (unknown) date) orders are pending unknown) (unknown) (no (unknown) (unknown) special renee (units ( unknown) date) needs: No unknown) (unknown) (no (unknown) (unknown) substance abuse, (units (unknown) date) alcohol unknown) intoxication, psychosis, mood disorder, depression (unknown) (no (unknown) (unknown) substance use (units ( unknown) date) type: does not use unknown) (unknown) (no (unknown) (unknown) tablet vomiting (units (unknown) date) #14 tabs unknown) (unknown) (no (unknown) (unknown) tablet vomiting (units (unknown) date) #20 tabs unknown) (unknown) (no (unknown) (unknown) tablet vomiting (units (unknown) date) #30 tabs unknown) (unknown) (no (unknown) (unknown) tenderness or (units ( unknown) date) exquisite unknown) tenderness with exam. (unknown) (no (unknown) (unknown) that she drinks (units (unknown) date) vodka and admits to unknown) drinking heavily today, states that she took (unknown) (no (unknown) (unknown) the bottle upside (units (unknown) date) down and started unknown) checking from it. She denies any recent (unknown) (no (unknown) (unknown) tramadol 50 mg (units (unknown) date) tablet 50 mg PO Q6H unknown) PRN pain #10 tabs 06/12/22 (unknown) (no (unknown) (unknown) tramadol 50 mg (units (unknown) date) tablet unknown) (unknown) (no (unknown) (unknown) well as prior (units ( unknown) date) records if unknown) available. (unknown) (no (unknown) (unknown) wheezing, stridor, (units (unknown) date) or abnormal breath unknown) sounds. No retractions or tachypnea. (unknown) (no (unknown) (unknown) with regular axis (units (unknown) date) and intervals. No unknown) STEMI, ST segment changes, arrhythmia, or Result panel [id number] (unknown) (no (unknown) (unknown) (no value) (units (unk nown) date) unknown) (unknown) (no (unknown) (unknown) (1-3) #30 tabs (units (unknown) date) unknown) (unknown) (no (unknown) (unknown) (Benadryl) caps (units (unknown) date) unknown) (unknown) (no (unknown) (unknown) (Colace) (units (unkno wn) date) unknown) (unknown) (no (unknown) (unknown) (Tylenol) (units (unkn own) date) unknown) (unknown) (no (unknown) (unknown) [id number] (units (unkn own) date) unknown) (unknown) (no (unknown) (unknown) 07/12/22 07/12/22 (units (unknown) date) Range/Units unknown) (unknown) (no (unknown) (unknown) 07/12/22 16:28 (units (unknown) date) unknown) (unknown) (no (unknown) (unknown) 07/12/22 16:32 (units (unknown) date) unknown) (unknown) (no (unknown) (unknown) 07/12/22 17:44 (units (unknown) date) unknown) (unknown) (no (unknown) (unknown) 07/12/22 (units (unkno wn) date) unknown) (unknown) (no (unknown) (unknown) 1 tab PO DAILY (units (unknown) date) unknown) (unknown) (no (unknown) (unknown) 100 mg PO BID Qty: (units (unknown) date) 30 0RF unknown) (unknown) (no (unknown) (unknown) 16:10 (units (unkno wn) date) unknown) (unknown) (no (unknown) (unknown) 16:32 16:32 (units (un known) date) unknown) (unknown) (no (unknown) (unknown) 1836 patient still (units (unknown) date) does not have an unknown) IV, has not received any IV fluid her (unknown) (no (unknown) (unknown) 2022 with similar (units (unknown) date) symptoms. She comes unknown) in complaining of needing help, states (unknown) (no (unknown) (unknown) 25 mg PO [...] Qty: 30 0RF (unknown) (no (unknown) (unknown) 9 points (units (unkno wn) date) unknown) (unknown) (no (unknown) (unknown) Acetaminophen Stat (units (unknown) date) unknown) (unknown) (no (unknown) (unknown) Age/Sex: 31 / F (units (unknown) date) unknown) (unknown) (no (unknown) (unknown) Agitation ?> 2 = (units (unknown) date) (More severe unknown) symptoms) (unknown) (no (unknown) (unknown) Alcoholism (units (unk nown) date) unknown) (unknown) (no (unknown) (unknown) Allergies (units (unkn own) date) unknown) (unknown) (no (unknown) (unknown) Allergy/AdvReac (units (unknown) date) Type Severity unknown) Reaction Status Date / Time (unknown) (no (unknown) (unknown) Anemia (-2018) (units (unknown) date) unknown) (unknown) (no (unknown) (unknown) Anxiety ?> 2 = (units (unknown) date) (More severe unknown) symptoms) (unknown) (no (unknown) (unknown) Auditory (units (unkno wn) date) disturbances ?> 1 = unknown) Very mild harshness or ability to frighten (unknown) (no (unknown) (unknown) Bedside Urine (units ( unknown) date) Bilirubin - unknown) Negative (unknown) (no (unknown) (unknown) Bedside Urine (units ( unknown) date) Glucose Negative unknown) (unknown) (no (unknown) (unknown) Bedside Urine (units ( unknown) date) Ketone - Negative unknown) (unknown) (no (unknown) (unknown) Bedside Urine (units ( unknown) date) Leukocytes - unknown) Negative (unknown) (no (unknown) (unknown) Bedside Urine (units ( unknown) date) Nitrite + Positive unknown) (unknown) (no (unknown) (unknown) Bedside Urine (units ( unknown) date) Occult Blood - unknown) Negative (unknown) (no (unknown) (unknown) Bedside Urine (units ( unknown) date) Protein - Negative unknown) (unknown) (no (unknown) (unknown) Bedside Urine (units ( unknown) date) Urobilinogen - unknown) Negative (unknown) (no (unknown) (unknown) Bedside Urine pH (units (unknown) date) 6.0 unknown) (unknown) (no (unknown) (unknown) Blood Pressure (units (unknown) date) 112/62 07/12/22 unknown) 16:10 (unknown) (no (unknown) (unknown) Blood Pressure (units (unknown) date) 112 unknown) (unknown) (no (unknown) (unknown) CIWA is now worse (units (unknown) date) and she has unknown) tremors, anxiety is worsening and agitation, (unknown) (no (unknown) (unknown) CIWA-Ar for (units (un known) date) Alcohol Withdrawal unknown) from [facility] on 07/12/2022 (unknown) (no (unknown) (unknown) COVID19 -Nasal (units (unknown) date) RAPID/Pre-Proc Stat unknown) (unknown) (no (unknown) (unknown) Cardiovascular: (units (unknown) date) regular rate and unknown) rhythm, no peripheral edema, warm extremities (unknown) (no (unknown) (unknown) Chief Complaint: (units (unknown) date) Alcohol unknown) intoxication, seeking detox (unknown) (no (unknown) (unknown) Chief Complaint: (units (unknown) date) Toxicology Problem unknown) (unknown) (no (unknown) (unknown) Clinical decision (units (unknown) date) rules or scores unknown) evaluated: CIWA of 9 at 1753 (unknown) (no (unknown) (unknown) Complete Blood (units (unknown) date) Count AUTO DIFF unknown) Stat (unknown) (no (unknown) (unknown) Comprehensive (units ( unknown) date) Metabolic Panel unknown) Stat (unknown) (no (unknown) (unknown) Consult to [facility] - (units (unknown) date) 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 unknown) Stat (unknown) (no (unknown) (unknown) Course of care: (units (unknown) date) Patient is a unknown) difficult IV stick, ordered IV with lab work, (unknown) (no (unknown) (unknown) Course (units (unkno wn) date) unknown) (unknown) (no (unknown) (unknown) : 1990 (units (unknown) date) Acct:[id number] unknown) (unknown) (no (unknown) (unknown) Date of Service: (units (unknown) date) 07/12/22 unknown) (unknown) (no (unknown) (unknown) Departure (units (unkn own) date) unknown) (unknown) (no (unknown) (unknown) Differential (units (u nknown) date) diagnoses include unknown) but are not limited to: Alcohol withdrawal, (unknown) (no (unknown) (unknown) Discharge Plan (units (unknown) date) unknown) (unknown) (no (unknown) (unknown) Discontinued (units (u nknown) date) Medications unknown) (unknown) (no (unknown) (unknown) ECG Data (units (unkno wn) date) unknown) (unknown) (no (unknown) (unknown) ED Orders (units (unkn own) date) unknown) (unknown) (no (unknown) (unknown) EKG independently (units (unknown) date) reviewed by myself unknown) at [] reveals normal sinus rhythm at [] bpm (unknown) (no (unknown) (unknown) EKG-12 Lead Stat (units (unknown) date) unknown) (unknown) (no (unknown) (unknown) ER Physician: (units ( unknown) date) Juliet Paz unknown) LYUDMILA (unknown) (no (unknown) (unknown) Emergency Report (units (unknown) date) unknown) (unknown) (no (unknown) (unknown) Esterase (units (unkno wn) date) unknown) (unknown) (no (unknown) (unknown) Ethanol (ETOH) (units (unknown) date) Stat unknown) (unknown) (no (unknown) (unknown) Exam Narrative: (units (unknown) date) unknown) (unknown) (no (unknown) (unknown) Exam (units (unkno wn) date) unknown) (unknown) (no (unknown) (unknown) Family History (units (unknown) date) (Reviewed 07/12/22 unknown) @ 17:50 by LYUDMILA Do) (unknown) (no (unknown) (unknown) Family/Other (units (u nknown) date) Alcoholism unknown) (unknown) (no (unknown) (unknown) Family/Other (units (u nknown) date) Diabetes mellitus unknown) (unknown) (no (unknown) (unknown) Father Alcoholism (units (unknown) date) unknown) (unknown) (no (unknown) (unknown) Tonia Schneider MD (units (unknown) date) [Primary Care unknown) Provider] (unknown) (no (unknown) (unknown) Folic Acid (Folic (units (unknown) date) Acid 1 Mg Tablet) 1 unknown) mg PO DAILY SANDY (unknown) (no (unknown) (unknown) Free T4, Direct (units (unknown) date) Thyroxine Stat unknown) (unknown) (no (unknown) (unknown) GI: abdomen soft, (units (unknown) date) nontender to unknown) palpation, nondistended, without masses, rebound (unknown) (no (unknown) (unknown) General (units (unkno wn) date) unknown) (unknown) (no (unknown) (unknown) General: (units (unkno wn) date) cooperative, unknown) comfortable, in no acute distress, well groomed, appears (unknown) (no (unknown) (unknown) Grandfather (units (un [...] extraction () unknown) (unknown) (no (unknown) (unknown) HEENT: symmetrical (units (unknown) date) facial expressions, unknown) dry mucous membranes (unknown) (no (unknown) (unknown) HPI - Alcohol (units ( unknown) date) unknown) (unknown) (no (unknown) (unknown) HPI narrative: (units (unknown) date) unknown) (unknown) (no (unknown) (unknown) Headache/fullness (units (unknown) date) in head ?> 1 = Very unknown) mild (unknown) (no (unknown) (unknown) History of Present (units (unknown) date) Illness unknown) (unknown) (no (unknown) (unknown) Home Medications (units (unknown) date) unknown) (unknown) (no (unknown) (unknown) I have (units (unkno wn) date) independently unknown) reviewed the patient's vital signs and nursing notes as (unknown) (no (unknown) (unknown) INPUTS: (units (unkno wn) date) unknown) (unknown) (no (unknown) (unknown) Independent (units (un known) date) historian: Patient unknown) (unknown) (no (unknown) (unknown) Initial Vital (units ( unknown) date) Signs unknown) (unknown) (no (unknown) (unknown) Initial Vital (units ( unknown) date) Signs: unknown) (unknown) (no (unknown) (unknown) Insomnia (units (unkno wn) date) unknown) (unknown) (no (unknown) (unknown) Interpretation: (units (unknown) date) unknown) (unknown) (no (unknown) (unknown) [facility] (units (unknown) date) [address] unknown) [place] [address] (unknown) (no (unknown) (unknown) Lab Data (units (unkno wn) date) unknown) (unknown) (no (unknown) (unknown) Lab Results (units (un known) date) unknown) (unknown) (no (unknown) (unknown) Labs: (units (unkno wn) date) unknown) (unknown) (no (unknown) (unknown) Lorazepam (units (unkn own) date) (Lorazepam 0.5 Mg unknown) Tablet) 1 mg PO NOW ONE (unknown) (no (unknown) (unknown) Lorazepam (units (unkn own) date) (Lorazepam 2 Mg/Ml unknown) Inj) 2 mg IV NOW ONE (unknown) (no (unknown) (unknown) MDM - Alcohol (units ( unknown) date) unknown) (unknown) (no (unknown) (unknown) MDM Narrative (units ( unknown) date) unknown) (unknown) (no (unknown) (unknown) MIPS: This (units (unk nown) date) encounter doesn't unknown) have any diagnosis' associated with MIPS criteria. (unknown) (no (unknown) (unknown) MSK: moves all (units (unknown) date) extremities, unknown) neurovascularly intact, no weakness, normal tone no (unknown) (no (unknown) (unknown) Medical History (units (unknown) date) (Reviewed 07/12/22 unknown) @ 17:50 by Juliet Paz [facility]) (unknown) (no (unknown) (unknown) Medical decision (units (unknown) date) making narrative: unknown) (unknown) (no (unknown) (unknown) Medication (units (unk nown) date) Instructions unknown) Recorded Confirmed (unknown) (no (unknown) (unknown) Medication (units (unk nown) date) Instructions unknown) Recorded (unknown) (no (unknown) (unknown) Menometrorrhagia (units (unknown) date) unknown) (unknown) (no (unknown) (unknown) Mode of arrival: (units (unknown) date) Ambulatory unknown) (unknown) (no (unknown) (unknown) Mother Diabetes (units (unknown) date) mellitus unknown) (unknown) (no (unknown) (unknown) Narrative (units (unkn own) date) unknown) (unknown) (no (unknown) (unknown) Nausea/vomiting ?> (units (unknown) date) 0 = No nausea and unknown) no vomiting (unknown) (no (unknown) (unknown) Neuro: normal (units ( unknown) date) speech and unknown) cognition, A+O x3, ambulatory, clear speech (unknown) (no (unknown) (unknown) No Action (units (unkn own) date) unknown) (unknown) (no (unknown) (unknown) Obesity (units (unkno wn) date) unknown) (unknown) (no (unknown) (unknown) Ondansetron HCl (units (unknown) date) (Ondansetron 4 Mg unknown) Odt) 4 mg SL NOW ONE (unknown) (no (unknown) (unknown) Ondansetron HCl (units (unknown) date) (Ondansetron 4 Mg/2 unknown) Ml Inj) 4 mg IV Q6HR PRN (unknown) (no (unknown) (unknown) Ordered: (units (unkno wn) date) unknown) (unknown) (no (unknown) (unknown) Orders (units (unkno wn) date) unknown) (unknown) (no (unknown) (unknown) Orientation/cloudi (units (unknown) date) ng of sensorium ?> unknown) 0 = Oriented, can do serial additions (unknown) (no (unknown) (unknown) Overweight (units (unk nown) date) unknown) (unknown) (no (unknown) (unknown) Oxygen Delivery (units (unknown) date) Method Room Air unknown) 07/12/22 16:10 (unknown) (no (unknown) (unknown) Oxygen Delivery (units (unknown) date) Method Room Air unknown) (unknown) (no (unknown) (unknown) PRN Reason: Nausea (units (unknown) date) And Vomiting unknown) (unknown) (no (unknown) (unknown) Paroxysmal sweats (units (unknown) date) ?> 0 = No sweat unknown) visible (unknown) (no (unknown) (unknown) Patient History (units (unknown) date) unknown) (unknown) (no (unknown) (unknown) Patient is (units (unk nown) date) appropriate for unknown) outpatient management. (unknown) (no (unknown) (unknown) Patient: (units (unkno wn) date) Sarah Connors R unknown) MR#: M (unknown) (no (unknown) (unknown) Patients with (units ( unknown) date) scores >= may unknown) require medication for withdrawal. (unknown) (no (unknown) (unknown) Pertinent lab (units ( unknown) date) findings reviewed: unknown) (unknown) (no (unknown) (unknown) Point of Care (units ( unknown) date) Testing unknown) (unknown) (no (unknown) (unknown) Test (units (unknown) date) Results Negative unknown) (unknown) (no (unknown) (unknown) Prescriptions: (units (unknown) date) unknown) (unknown) (no (unknown) (unknown) Previous Rx's (units ( unknown) date) unknown) (unknown) (no (unknown) (unknown) Psych: mental (units ( unknown) date) status is grossly unknown) normal, congruent mood, normal affect, pleasant (unknown) (no (unknown) (unknown) Pulse Oximetry 99 (units (unknown) date) 07/12/22 16:10 unknown) (unknown) (no (unknown) (unknown) Pulse Oximetry 99 (units (unknown) date) unknown) (unknown) (no (unknown) (unknown) Pulse Rate 82 (units ( unknown) date) 07/12/22 16:10 unknown) (unknown) (no (unknown) (unknown) Pulse Rate 82 (units ( unknown) date) unknown) (unknown) (no (unknown) (unknown) Questions are (units ( unknown) date) addressed and there unknown) is agreement with the plan and for follow-up. (unknown) (no (unknown) (unknown) RESULT SUMMARY: (units (unknown) date) unknown) (unknown) (no (unknown) (unknown) ROS Unobtainable: (units (unknown) date) All systems unknown) reviewed + are unremarkable except as noted in HPI (unknown) (no (unknown) (unknown) Referrals: (units (unk nown) date) unknown) (unknown) (no (unknown) (unknown) Related Data (units (u nknown) date) unknown) (unknown) (no (unknown) (unknown) Respiratory Rate (units (unknown) date) 14 07/12/22 16:10 unknown) (unknown) (no (unknown) (unknown) Respiratory Rate (units (unknown) date) 14 unknown) (unknown) (no (unknown) (unknown) Respiratory: (units (u nknown) date) normal effort, able unknown) to speak in complete sentences, without (unknown) (no (unknown) (unknown) Review of Systems (units (unknown) date) unknown) (unknown) (no (unknown) (unknown) Reviewed vitals (units (unknown) date) signs and nursing unknown) notes. (unknown) (no (unknown) (unknown) S/P myringotomy (units (unknown) date) with insertion of unknown) tube (unknown) (no (unknown) (unknown) SARS-CoV-2 (PCR) (units (unknown) date) Negative (Negative) unknown) (unknown) (no (unknown) (unknown) (spontaneous (units (unknown) date) vaginal delivery) unknown) (-09/05/18) (unknown) (no (unknown) (unknown) Salicylate Stat (units (unknown) date) unknown) (unknown) (no (unknown) (unknown) She was given a (units (unknown) date) couple water, a unknown) diet order was ordered however they may not (unknown) (no (unknown) (unknown) Signed By: (units (unk nown) date) unknown) (unknown) (no (unknown) (unknown) Skin: brisk (units (un known) date) capillary refill, unknown) without pallor or erythema (unknown) (no (unknown) (unknown) Smoker (units (unkno wn) date) unknown) (unknown) (no (unknown) (unknown) Smoking Status: (units (unknown) date) Former smoker unknown) (unknown) (no (unknown) (unknown) Social History (units (unknown) date) (Reviewed 07/12/22 unknown) @ 17:50 by LYUDMILA Do) (unknown) (no (unknown) (unknown) Social (units (unkno wn) date) considerations that unknown) may affect disposition: none (unknown) (no (unknown) (unknown) Sodium Chloride (units (unknown) date) (Normal Saline unknown) 0.9%) 1,000 mls @ 1,000 mls/hr IV BOLUS ONE (unknown) (no (unknown) (unknown) Source: patient (units (unknown) date) unknown) (unknown) (no (unknown) (unknown) Stated Complaint: (units (unknown) date) Stress/Depression unknown) (unknown) (no (unknown) (unknown) Stop: 07/12/22 (units (unknown) date) 17:33 unknown) (unknown) (no (unknown) (unknown) Stop: 07/12/22 (units (unknown) date) 17:45 unknown) (unknown) (no (unknown) (unknown) Stop: 07/12/22 (units (unknown) date) 18:28 unknown) (unknown) (no (unknown) (unknown) Stop: 07/12/22 (units (unknown) date) 18:31 unknown) (unknown) (no (unknown) (unknown) Substance Use (units ( unknown) date) Type: does not use unknown) (unknown) (no (unknown) (unknown) Surgical History (units (unknown) date) (Reviewed 07/12/22 unknown) @ 17:50 by LYUDMILA Do) (unknown) (no (unknown) (unknown) Tactile (units (unkno wn) date) disturbances ?> 1 = unknown) Very mild itching, pin and needles, burning, or (unknown) (no (unknown) (unknown) Temperature 97.2 F (units (unknown) date) L 07/12/22 16:10 unknown) (unknown) (no (unknown) (unknown) Temperature 97.2 F (units (unknown) date) L unknown) (unknown) (no (unknown) (unknown) Thiamine HCl (units (u nknown) date) (Thiamine 100 Mg unknown) Tablet) 100 mg PO NOW ONE (unknown) (no (unknown) (unknown) Thiamine HCl 200 (units (unknown) date) mg/ Sodium unknown) (Chloride) 102 mls @ 408 mls/hr IV NOW ONE (unknown) (no (unknown) (unknown) This is a (units (unkn own) date) 31-year-old female unknown) with history of alcohol abuse and appears to have (unknown) (no (unknown) (unknown) Thyroid (units (unkno wn) date) Stimulating Hormone unknown) Stat (unknown) (no (unknown) (unknown) Time Seen by (units (u nknown) date) Provider: 07/12/22 unknown) 17:05 (unknown) (no (unknown) (unknown) Tremor ?> 1 = Not (units (unknown) date) visible, but can be unknown) felt fingertip to fingertip (unknown) (no (unknown) (unknown) U Benzodiazepines (units (unknown) date) Scrn Negative unknown) (Negative) (unknown) (no (unknown) (unknown) U Marijuana (THC) (units (unknown) date) Screen Negative unknown) (Negative) (unknown) (no (unknown) (unknown) U Methamphetamines (units (unknown) date) Scrn Negative unknown) (Negative) (unknown) (no (unknown) (unknown) U Opiates 300ng/mL (units (unknown) date) cut Negative unknown) (Negative) (unknown) (no (unknown) (unknown) U Tricyclic (units (un known) date) Antidepress unknown) Negative (Negative) (unknown) (no (unknown) (unknown) Ur Amphetamines (units (unknown) date) Screen Negative unknown) (Negative) (unknown) (no (unknown) (unknown) Ur Barbiturates (units (unknown) date) Screen Negative unknown) (Negative) (unknown) (no (unknown) (unknown) Ur MDMA Scrn (units (u nknown) date) (Ecstasy) Negative unknown) (Negative) (unknown) (no (unknown) (unknown) Ur Oxycodone (units (u nknown) date) Screen Negative unknown) (Negative) (unknown) (no (unknown) (unknown) Ur Phencyclidine (units (unknown) date) Scrn Negative unknown) (Negative) (unknown) (no (unknown) (unknown) Urine Cocaine (units ( unknown) date) Screen Negative unknown) (Negative) (unknown) (no (unknown) (unknown) Urine Dip (units (unkn own) date) unknown) (unknown) (no (unknown) (unknown) Urine Drug Screen, (units (unknown) date) Rapid Stat unknown) (unknown) (no (unknown) (unknown) Urine Methadone (units (unknown) date) Screen Negative unknown) (Negative) (unknown) (no (unknown) (unknown) Urine Microscopic (units (unknown) date) Stat unknown) (unknown) (no (unknown) (unknown) Urine Specific (units (unknown) date) [place] 1.015 unknown) (unknown) (no (unknown) (unknown) Visual (units (unkno wn) date) disturbances ?> 1 = unknown) Very mild sensitivity (unknown) (no (unknown) (unknown) Vital Signs - 8 hr (units (unknown) date) unknown) (unknown) (no (unknown) (unknown) Vital Signs (units (un known) date) unknown) (unknown) (no (unknown) (unknown) Vital signs: (units (u nknown) date) unknown) (unknown) (no (unknown) (unknown) [METOCLOPRAMIDE] (units (unknown) date) unknown) (unknown) (no (unknown) (unknown) acetaminophen 325 (units (unknown) date) mg tablet 325 mg PO unknown) Q6H PRN pain #20 tabs 02/05/20 (unknown) (no (unknown) (unknown) acetaminophen (units ( unknown) date) [Tylenol] 325 mg unknown) tablet (unknown) (no (unknown) (unknown) acute ischemic (units (unknown) date) changes. unknown) (unknown) (no (unknown) (unknown) alcohol in 300s, (units (unknown) date) she was last here unknown) in the emergency department in May of (unknown) (no (unknown) (unknown) alcohol intake (units (unknown) date) frequency: 3 or unknown) more drinks per day (unknown) (no (unknown) (unknown) alcohol intake: (units (unknown) date) former unknown) (unknown) (no (unknown) (unknown) and below (units (unkn own) date) unknown) (unknown) (no (unknown) (unknown) and cooperative (units (unknown) date) unknown) (unknown) (no (unknown) (unknown) at extension and (units (unknown) date) states that she unknown) feels symptoms of alcohol withdrawal. Denies (unknown) (no (unknown) (unknown) current (units (unkno wn) date) occupational unknown) exposures/hazards: Yes (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 with Pandemic ) (unknown) (no (unknown) (unknown) deliver since it (units (unknown) date) is after 17:00 and unknown) the diet order was ordered at 17:30. Samira (unknown) (no (unknown) (unknown) detox as well. (units (unknown) date) unknown) (unknown) (no (unknown) (unknown) diarrhea or (units (un known) date) current stool unknown) changes. (unknown) (no (unknown) (unknown) diphenhydramine (units (unknown) [...] mg unknown) capsule (unknown) (no (unknown) (unknown) draw her labs (units ( unknown) date) unknown) (unknown) (no (unknown) (unknown) education level: (units (unknown) date) college unknown) (unknown) (no (unknown) (unknown) emergency (units (unkn own) date) department on unknown) 06/18/2022 and a few days prior to that with a blood (unknown) (no (unknown) (unknown) renee/zoroastrianism: (units (unknown) date) Buddhist unknown) (unknown) (no (unknown) (unknown) fluid, EtOH, and (units (unknown) date) CIWA, ordered 2 mg unknown) of IV lorazepam for patient's symptoms, s (unknown) (no (unknown) (unknown) for alcohol (units (un known) date) related complaints unknown) through 2019, and she presented to the [facility] (unknown) (no (unknown) (unknown) from social work (units (unknown) date) is aware and unknown) pending her lab work to arrange for inpatient (unknown) (no (unknown) (unknown) household members: (units (unknown) date) spouse and children unknown) (unknown) (no (unknown) (unknown) hydrocodone (units (un known) date) [HYDROCODONE] unknown) AdvReac Unknown VOMITING Verified 07/12/22 16:18 (unknown) (no (unknown) (unknown) ibuprofen 600 mg (units (unknown) date) Tablet unknown) (unknown) (no (unknown) (unknown) ibuprofen 600 mg (units (unknown) date) tablet 600 mg PO unknown) Q6HR PRN Pain, Mild 07/04/20 (unknown) (no (unknown) (unknown) injuries, denies (units (unknown) date) chance of unknown) , denies any other ingestions, is pleasant, (unknown) (no (unknown) (unknown) intoxicated, (units (un known) date) pleasant, unknown) interactive and comfortable although active and fidgeting (unknown) (no (unknown) (unknown) limited history (units (unknown) date) currently due to unknown) intoxication. She states that she is recently (unknown) (no (unknown) (unknown) marital status: (units (unknown) date) unknown) (unknown) (no (unknown) (unknown) metoclopramide (units (unknown) date) Allergy Mild unknown) RASH/HIVES Verified 07/12/22 16:18 (unknown) (no (unknown) (unknown) nausea vomiting or (units (unknown) date) abdominal pain at unknown) this time. Denies any vomiting home or (unknown) (no (unknown) (unknown) number of (units (unkn own) date) children: 1 unknown) (unknown) (no (unknown) (unknown) numbness (units (unkno wn) date) unknown) (unknown) (no (unknown) (unknown) occupational (units (u nknown) date) status: employed unknown) (unknown) (no (unknown) (unknown) ocial work and (units (unknown) date) orders are pending unknown) (unknown) (no (unknown) (unknown) ondansetron 4 [...] tablet,disintegrati unknown) ng (unknown) (no (unknown) (unknown) ordered p.o. (units (u nknown) date) Ativan for her unknown) symptoms and ask our into call lab to come up and (unknown) (no (unknown) (unknown) prenat.vits,otis,mi (units (unknown) date) [id number] 1 tab unknown) PO DAILY 12/30/19 07/03/20 (unknown) (no (unknown) (unknown) prenat.vits,otis,mi (units (unknown) date) i-ablw-nddft Tablet unknown) (unknown) (no (unknown) (unknown) relapsed due to a (units (unknown) date) divorce with her unknown) . 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 (unknown) (no (unknown) (unknown) significant tremor (units (unknown) date) or tongue unknown) fasciculation, she has a mild tremor with her arms (unknown) (no (unknown) (unknown) special renee (units ( unknown) date) needs: No unknown) (unknown) (no (unknown) (unknown) substance abuse, (units (unknown) date) alcohol unknown) intoxication, psychosis, mood disorder, depression (unknown) (no (unknown) (unknown) substance use (units ( unknown) date) type: does not use unknown) (unknown) (no (unknown) (unknown) tablet vomiting (units (unknown) date) #14 tabs unknown) (unknown) (no (unknown) (unknown) tablet vomiting (units (unknown) date) #20 tabs unknown) (unknown) (no (unknown) (unknown) tablet vomiting (units (unknown) date) #30 tabs unknown) (unknown) (no (unknown) (unknown) tenderness or (units ( unknown) date) exquisite unknown) tenderness with exam. (unknown) (no (unknown) (unknown) that she drinks (units (unknown) date) vodka and admits to unknown) drinking heavily today, states that she took (unknown) (no (unknown) (unknown) the bottle upside (units (unknown) date) down and started unknown) checking from it. She denies any recent (unknown) (no (unknown) (unknown) tramadol 50 mg (units (unknown) date) tablet 50 mg PO Q6H unknown) PRN pain #10 tabs 06/12/22 (unknown) (no (unknown) (unknown) tramadol 50 mg (units (unknown) date) tablet unknown) (unknown) (no (unknown) (unknown) well as prior (units ( unknown) date) records if unknown) available. (unknown) (no (unknown) (unknown) wheezing, stridor, (units (unknown) date) or abnormal breath unknown) sounds. No retractions or tachypnea. (unknown) (no (unknown) (unknown) with regular axis (units (unknown) date) and intervals. No unknown) STEMI, ST segment changes, arrhythmia, or Result panel [id number] (unknown) (no date) (unknown) (unknown) 1-5 /HPF (units (unkn own) unknown) (unknown) (no date) (unknown) (unknown) 1-5/HPF (units (unkn own) unknown) (unknown) (no date) (unknown) (unknown) 1-5/HPF (units (unkn own) unknown) (unknown) (no date) (unknown) (unknown) Many (>30) (units (un known) unknown) (unknown) (no date) (unknown) (unknown) Specimen (units (unkn own) Cultured unknown) Result panel 2346 (unknown) (no (unknown) (unknown) (no value) (units (unk nown) date) unknown) (unknown) (no (unknown) (unknown) (1-3) #30 tabs (units (unknown) date) unknown) (unknown) (no (unknown) (unknown) (Benadryl) caps (units (unknown) date) unknown) (unknown) (no (unknown) (unknown) (Colace) (units (unkno wn) date) unknown) (unknown) (no (unknown) (unknown) (Tylenol) (units (unkn own) date) unknown) (unknown) (no (unknown) (unknown) [id number] (units (unkn own) date) unknown) (unknown) (no (unknown) (unknown) 07/12/22 07/12/22 (units (unknown) date) 07/12/22 unknown) Range/Units (unknown) (no (unknown) (unknown) 07/12/22 16:28 (units (unknown) date) unknown) (unknown) (no (unknown) (unknown) 07/12/22 16:32 (units (unknown) date) unknown) (unknown) (no (unknown) (unknown) 07/12/22 18:28 (units (unknown) date) unknown) (unknown) (no (unknown) (unknown) 07/12/22 (units (unkno wn) date) unknown) (unknown) (no (unknown) (unknown) 1 tab PO DAILY (units (unknown) date) unknown) (unknown) (no (unknown) (unknown) 100 mg PO BID Qty: (units (unknown) date) 30 0RF unknown) (unknown) (no (unknown) (unknown) 16:10 07/12/22 (units (unknown) date) unknown) (unknown) (no (unknown) (unknown) 16:32 16:32 16:32 (units (unknown) date) unknown) (unknown) (no (unknown) (unknown) 1836 patient still (units (unknown) date) does not have an unknown) IV, has not received any IV fluid her (unknown) (no (unknown) (unknown) 18:53 (units (unkno wn) date) unknown) (unknown) (no (unknown) (unknown) 1900 still no IV, (units (unknown) date) patient is p.o. unknown) challenging, she received her p.o. lorazepam, (unknown) (no (unknown) (unknown) 2022 with similar (units (unknown) date) symptoms. She comes unknown) in complaining of needing help, states (unknown) (no (unknown) (unknown) 25 mg PO [...] Qty: 30 0RF (unknown) (no (unknown) (unknown) 9 points (units (unkno wn) date) unknown) (unknown) (no (unknown) (unknown) Acetaminophen Stat (units (unknown) date) unknown) (unknown) (no (unknown) (unknown) Age/Sex: 31 / F (units (unknown) date) unknown) (unknown) (no (unknown) (unknown) Agitation ?> 2 = (units (unknown) date) (More severe unknown) symptoms) (unknown) (no (unknown) (unknown) Alcoholism (units (unk nown) date) unknown) (unknown) (no (unknown) (unknown) Allergies (units (unkn own) date) unknown) (unknown) (no (unknown) (unknown) Allergy/AdvReac (units (unknown) date) Type Severity unknown) Reaction Status Date / Time (unknown) (no (unknown) (unknown) Anemia (-2018) (units (unknown) date) unknown) (unknown) (no (unknown) (unknown) Anxiety ?> 2 = (units (unknown) date) (More severe unknown) symptoms) (unknown) (no (unknown) (unknown) Auditory (units (unkno wn) date) disturbances ?> 1 = unknown) Very mild harshness or ability to frighten (unknown) (no (unknown) (unknown) Bedside Urine (units ( unknown) date) Bilirubin - unknown) Negative (unknown) (no (unknown) (unknown) Bedside Urine (units ( unknown) date) Glucose Negative unknown) (unknown) (no (unknown) (unknown) Bedside Urine (units ( unknown) date) Ketone - Negative unknown) (unknown) (no (unknown) (unknown) Bedside Urine (units ( unknown) date) Leukocytes - unknown) Negative (unknown) (no (unknown) (unknown) Bedside Urine (units ( unknown) date) Nitrite + Positive unknown) (unknown) (no (unknown) (unknown) Bedside Urine (units ( unknown) date) Occult Blood - unknown) Negative (unknown) (no (unknown) (unknown) Bedside Urine (units ( unknown) date) Protein - Negative unknown) (unknown) (no (unknown) (unknown) Bedside Urine (units ( unknown) date) Urobilinogen - unknown) Negative (unknown) (no (unknown) (unknown) Bedside Urine pH (units (unknown) date) 6.0 unknown) (unknown) (no (unknown) (unknown) Blood Pressure (units (unknown) date) 112/62 07/12/22 unknown) 16:10 (unknown) (no (unknown) (unknown) Blood Pressure (units (unknown) date) 112/ unknown) (unknown) (no (unknown) (unknown) Blood Pressure (units (unknown) date) [Left Arm] 100/59 L unknown) (unknown) (no (unknown) (unknown) CIWA is now worse (units (unknown) date) and she has unknown) tremors, anxiety is worsening and agitation, (unknown) (no (unknown) (unknown) CIWA-Ar for (units (un known) date) Alcohol Withdrawal unknown) from [facility] on 07/12/2022 (unknown) (no (unknown) (unknown) COVID19 -Nasal (units (unknown) date) RAPID/Pre-Proc Stat unknown) (unknown) (no (unknown) (unknown) Cardiovascular: (units (unknown) date) regular rate and unknown) rhythm, no peripheral edema, warm extremities (unknown) (no (unknown) (unknown) Cephalexin HCl (units (unknown) date) (Cephalexin 250 Mg unknown) Capsule) 500 mg PO Q6H SANDY (unknown) (no (unknown) (unknown) Chief Complaint: (units (unknown) date) Alcohol unknown) intoxication, seeking detox (unknown) (no (unknown) (unknown) Chief Complaint: (units (unknown) date) Toxicology Problem unknown) (unknown) (no (unknown) (unknown) Clinical decision (units (unknown) date) rules or scores unknown) evaluated: CIWA of 9 at 1753 (unknown) (no (unknown) (unknown) Complete Blood (units (unknown) date) Count AUTO DIFF unknown) Stat (unknown) (no (unknown) (unknown) Comprehensive (units ( unknown) date) Metabolic Panel unknown) Stat (unknown) (no (unknown) (unknown) Consult to [facility] - (units (unknown) date) 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 unknown) Stat (unknown) (no (unknown) (unknown) Course of care: (units (unknown) date) Patient is a unknown) difficult IV stick, ordered IV with lab work, (unknown) (no (unknown) (unknown) Course (units (unkno wn) date) unknown) (unknown) (no (unknown) (unknown) : 1990 (units (unknown) date) Acct:[id number] unknown) (unknown) (no (unknown) (unknown) Date of Service: (units (unknown) date) 07/12/22 unknown) (unknown) (no (unknown) (unknown) Departure (units (unkn own) date) unknown) (unknown) (no (unknown) (unknown) Differential (units (u nknown) date) diagnoses include unknown) but are not limited to: Alcohol withdrawal, (unknown) (no (unknown) (unknown) Discharge Plan (units (unknown) date) unknown) (unknown) (no (unknown) (unknown) Discontinued (units (u nknown) date) Medications unknown) (unknown) (no (unknown) (unknown) ECG Data (units (unkno wn) date) unknown) (unknown) (no (unknown) (unknown) ED Orders (units (unkn own) date) unknown) (unknown) (no (unknown) (unknown) EKG independently (units (unknown) date) reviewed by myself unknown) at [] reveals normal sinus rhythm at [] bpm (unknown) (no (unknown) (unknown) EKG-12 Lead Stat (units (unknown) date) unknown) (unknown) (no (unknown) (unknown) ER Physician: (units ( unknown) date) Juliet Paz unknown) LYUDMILA (unknown) (no (unknown) (unknown) Emergency Report (units (unknown) date) unknown) (unknown) (no (unknown) (unknown) Esterase (units (unkno wn) date) unknown) (unknown) (no (unknown) (unknown) Ethanol (ETOH) (units (unknown) date) Stat unknown) (unknown) (no (unknown) (unknown) Exam Narrative: (units (unknown) date) unknown) (unknown) (no (unknown) (unknown) Exam (units (unkno wn) date) unknown) (unknown) (no (unknown) (unknown) Family History (units (unknown) date) (Reviewed 07/12/22 unknown) @ 17:50 by LYUDMILA Do) (unknown) (no (unknown) (unknown) Family/Other (units (u nknown) date) Alcoholism unknown) (unknown) (no (unknown) (unknown) Family/Other (units (u nknown) date) Diabetes mellitus unknown) (unknown) (no (unknown) (unknown) Father Alcoholism (units (unknown) date) unknown) (unknown) (no (unknown) (unknown) Tonia Schneider MD (units (unknown) date) [Primary Care unknown) Provider] (unknown) (no (unknown) (unknown) Folic Acid (Folic (units (unknown) date) Acid 1 Mg Tablet) 1 unknown) mg PO DAILY SANDY (unknown) (no (unknown) (unknown) Free T4, Direct (units (unknown) date) Thyroxine Stat unknown) (unknown) (no (unknown) (unknown) GI: abdomen soft, (units (unknown) date) nontender to unknown) palpation, nondistended, without masses, rebound (unknown) (no (unknown) (unknown) General (units (unkno wn) date) unknown) (unknown) (no (unknown) (unknown) General: (units (unkno wn) date) cooperative, unknown) comfortable, in no acute distress, well groomed, appears (unknown) (no (unknown) (unknown) Grandfather (units (un [...] extraction (-2013) unknown) (unknown) (no (unknown) (unknown) HEENT: symmetrical (units (unknown) date) facial expressions, unknown) dry mucous membranes (unknown) (no (unknown) (unknown) HPI - Alcohol (units ( unknown) date) unknown) (unknown) (no (unknown) (unknown) HPI narrative: (units (unknown) date) unknown) (unknown) (no (unknown) (unknown) Headache/fullness (units (unknown) date) in head ?> 1 = Very unknown) mild (unknown) (no (unknown) (unknown) History of Present (units (unknown) date) Illness unknown) (unknown) (no (unknown) (unknown) Home Medications (units (unknown) date) unknown) (unknown) (no (unknown) (unknown) I have (units (unkno wn) date) independently unknown) reviewed the patient's vital signs and nursing notes as (unknown) (no (unknown) (unknown) INPUTS: (units (unkno wn) date) unknown) (unknown) (no (unknown) (unknown) Independent (units (un known) date) historian: Patient unknown) (unknown) (no (unknown) (unknown) Initial Vital (units ( unknown) date) Signs unknown) (unknown) (no (unknown) (unknown) Initial Vital (units ( unknown) date) Signs: unknown) (unknown) (no (unknown) (unknown) Insomnia (units (unkno wn) date) unknown) (unknown) (no (unknown) (unknown) Interpretation: (units (unknown) date) unknown) (unknown) (no (unknown) (unknown) [facility] (units (unknown) date) [address] unknown) [place] [address] (unknown) (no (unknown) (unknown) Lab Data (units (unkno wn) date) unknown) (unknown) (no (unknown) (unknown) Lab Results (units (un known) date) unknown) (unknown) (no (unknown) (unknown) Labs: (units (unkno wn) date) unknown) (unknown) (no (unknown) (unknown) Last Admin: (units (un known) date) 07/12/22 18:39 unknown) Dose: 4 mg (unknown) (no (unknown) (unknown) Last Admin: (units (un known) date) 07/12/22 18:40 unknown) Dose: 1 mg (unknown) (no (unknown) (unknown) Lorazepam (units (unkn own) date) (Lorazepam 0.5 Mg unknown) Tablet) 1 mg PO NOW ONE (unknown) (no (unknown) (unknown) Lorazepam (units (unkn own) date) (Lorazepam 2 Mg/Ml unknown) Inj) 2 mg IV NOW ONE (unknown) (no (unknown) (unknown) MDM - Alcohol (units ( unknown) date) unknown) (unknown) (no (unknown) (unknown) MDM Narrative (units ( unknown) date) unknown) (unknown) (no (unknown) (unknown) MIPS: This (units (unk nown) date) encounter doesn't unknown) have any diagnosis' associated with MIPS criteria. (unknown) (no (unknown) (unknown) MSK: moves all (units (unknown) date) extremities, unknown) neurovascularly intact, no weakness, normal tone no (unknown) (no (unknown) (unknown) Medical History (units (unknown) date) (Reviewed 07/12/22 unknown) @ 17:50 by LYUDMILA Do) (unknown) (no (unknown) (unknown) Medical decision (units (unknown) date) making narrative: unknown) (unknown) (no (unknown) (unknown) Medication (units (unk nown) date) Instructions unknown) Recorded Confirmed (unknown) (no (unknown) (unknown) Medication (units (unk nown) date) Instructions unknown) Recorded (unknown) (no (unknown) (unknown) Menometrorrhagia (units (unknown) date) unknown) (unknown) (no (unknown) (unknown) Mode of arrival: (units (unknown) date) Ambulatory unknown) (unknown) (no (unknown) (unknown) Mother Diabetes (units (unknown) date) mellitus unknown) (unknown) (no (unknown) (unknown) Narrative (units (unkn own) date) unknown) (unknown) (no (unknown) (unknown) Nausea/vomiting ?> (units (unknown) date) 0 = No nausea and unknown) no vomiting (unknown) (no (unknown) (unknown) Neuro: normal (units ( unknown) date) speech and unknown) cognition, A+O x3, ambulatory, clear speech (unknown) (no (unknown) (unknown) No Action (units (unkn own) date) unknown) (unknown) (no (unknown) (unknown) Obesity (units (unkno wn) date) unknown) (unknown) (no (unknown) (unknown) Ondansetron HCl (units (unknown) date) (Ondansetron 4 Mg unknown) Odt) 4 mg SL NOW ONE (unknown) (no (unknown) (unknown) Ondansetron HCl (units (unknown) date) (Ondansetron 4 Mg/2 unknown) Ml Inj) 4 mg IV Q6HR PRN (unknown) (no (unknown) (unknown) Ordered: (units (unkno wn) date) unknown) (unknown) (no (unknown) (unknown) Orders (units (unkno wn) date) unknown) (unknown) (no (unknown) (unknown) Orientation/cloudi (units (unknown) date) ng of sensorium ?> unknown) 0 = Oriented, can do serial additions (unknown) (no (unknown) (unknown) Overweight (units (unk nown) date) unknown) (unknown) (no (unknown) (unknown) Oxygen Delivery (units (unknown) date) Method Room Air unknown) 07/12/22 16:10 (unknown) (no (unknown) (unknown) Oxygen Delivery (units (unknown) date) Method Room Air unknown) Room Air (unknown) (no (unknown) (unknown) PRN Reason: Nausea (units (unknown) date) And Vomiting unknown) (unknown) (no (unknown) (unknown) Paroxysmal sweats (units (unknown) date) ?> 0 = No sweat unknown) visible (unknown) (no (unknown) (unknown) Patient History (units (unknown) date) unknown) (unknown) (no (unknown) (unknown) Patient is (units (unk nown) date) appropriate for unknown) outpatient management. (unknown) (no (unknown) (unknown) Patient: (units (unkno wn) date) Sarah Connors unknown) MR#: M (unknown) (no (unknown) (unknown) Patients with (units ( unknown) date) scores >= may unknown) require medication for withdrawal. (unknown) (no (unknown) (unknown) Pertinent lab (units ( unknown) date) findings reviewed: unknown) (unknown) (no (unknown) (unknown) Point of Care (units ( unknown) date) Testing unknown) (unknown) (no (unknown) (unknown) Test (units (unknown) date) Results Negative unknown) (unknown) (no (unknown) (unknown) Prescriptions: (units (unknown) date) unknown) (unknown) (no (unknown) (unknown) Previous Rx's (units ( unknown) date) unknown) (unknown) (no (unknown) (unknown) Psych: mental (units ( unknown) date) status is grossly unknown) normal, congruent mood, normal affect, pleasant (unknown) (no (unknown) (unknown) Pulse Oximetry 99 (units (unknown) date) 07/12/22 16:10 unknown) (unknown) (no (unknown) (unknown) Pulse Oximetry 99 (units (unknown) date) 99 unknown) (unknown) (no (unknown) (unknown) Pulse Rate 82 (units ( unknown) date) 07/12/22 16:10 unknown) (unknown) (no (unknown) (unknown) Pulse Rate 82 86 (units (unknown) date) unknown) (unknown) (no (unknown) (unknown) Questions are (units ( unknown) date) addressed and there unknown) is agreement with the plan and for follow-up. (unknown) (no (unknown) (unknown) RESULT SUMMARY: (units (unknown) date) unknown) (unknown) (no (unknown) (unknown) ROS Unobtainable: (units (unknown) date) All systems unknown) reviewed + are unremarkable except as noted in HPI (unknown) (no (unknown) (unknown) Referrals: (units (unk nown) date) unknown) (unknown) (no (unknown) (unknown) Related Data (units (u nknown) date) unknown) (unknown) (no (unknown) (unknown) Respiratory Rate (units (unknown) date) 14 07/12/22 16:10 unknown) (unknown) (no (unknown) (unknown) Respiratory Rate (units (unknown) date) 14 22 unknown) (unknown) (no (unknown) (unknown) Respiratory: (units (u nknown) date) normal effort, able unknown) to speak in complete sentences, without (unknown) (no (unknown) (unknown) Review of Systems (units (unknown) date) unknown) (unknown) (no (unknown) (unknown) Reviewed vitals (units (unknown) date) signs and nursing unknown) notes. (unknown) (no (unknown) (unknown) S/P myringotomy (units (unknown) date) with insertion of unknown) tube (unknown) (no (unknown) (unknown) SARS-CoV-2 (PCR) (units (unknown) date) Negative (Negative) unknown) (unknown) (no (unknown) (unknown) (spontaneous (units (unknown) date) vaginal delivery) unknown) (-09/05/18) (unknown) (no (unknown) (unknown) Salicylate Stat (units (unknown) date) unknown) (unknown) (no (unknown) (unknown) She was given a (units (unknown) date) couple water, a unknown) diet order was ordered however they may not (unknown) (no (unknown) (unknown) Signed By: (units (unk nown) date) unknown) (unknown) (no (unknown) (unknown) Skin: brisk (units (un known) date) capillary refill, unknown) without pallor or erythema (unknown) (no (unknown) (unknown) Smoker (units (unkno wn) date) unknown) (unknown) (no (unknown) (unknown) Smoking Status: (units (unknown) date) Former smoker unknown) (unknown) (no (unknown) (unknown) Social History (units (unknown) date) (Reviewed 07/12/22 unknown) @ 17:50 by LYUDMILA Do) (unknown) (no (unknown) (unknown) Social (units (unkno wn) date) considerations that unknown) may affect disposition: none (unknown) (no (unknown) (unknown) Sodium Chloride (units (unknown) date) (Normal Saline unknown) 0.9%) 1,000 mls @ 1,000 mls/hr IV BOLUS ONE (unknown) (no (unknown) (unknown) Source: patient (units (unknown) date) unknown) (unknown) (no (unknown) (unknown) Stated Complaint: (units (unknown) date) Stress/Depression unknown) (unknown) (no (unknown) (unknown) Stop: 07/12/22 (units (unknown) date) 17:33 unknown) (unknown) (no (unknown) (unknown) Stop: 07/12/22 (units (unknown) date) 17:45 unknown) (unknown) (no (unknown) (unknown) Stop: 07/12/22 (units (unknown) date) 18:28 unknown) (unknown) (no (unknown) (unknown) Stop: 07/12/22 (units (unknown) date) 18:31 unknown) (unknown) (no (unknown) (unknown) Substance Use (units ( unknown) date) Type: does not use unknown) (unknown) (no (unknown) (unknown) Surgical History (units (unknown) date) (Reviewed 07/12/22 unknown) @ 17:50 by Juliet Paz [facility]) (unknown) (no (unknown) (unknown) Tactile (units (unkno wn) date) disturbances ?> 1 = unknown) Very mild itching, pin and needles, burning, or (unknown) (no (unknown) (unknown) Temperature 97.2 F (units (unknown) date) L 07/12/22 16:10 unknown) (unknown) (no (unknown) (unknown) Temperature 97.2 F (units (unknown) date) L unknown) (unknown) (no (unknown) (unknown) Thiamine HCl (units (u nknown) date) (Thiamine 100 Mg unknown) Tablet) 100 mg PO NOW ONE (unknown) (no (unknown) (unknown) Thiamine HCl 200 (units (unknown) date) mg/ Sodium unknown) (Chloride) 102 mls @ 408 mls/hr IV NOW ONE (unknown) (no (unknown) (unknown) This is a (units (unkn own) date) 31-year-old female unknown) with history of alcohol abuse and appears to have (unknown) (no (unknown) (unknown) Thyroid (units (unkno wn) date) Stimulating Hormone unknown) Stat (unknown) (no (unknown) (unknown) Time Seen by (units (u nknown) date) Provider: 07/12/22 unknown) 17:05 (unknown) (no (unknown) (unknown) Tremor ?> 1 = Not (units (unknown) date) visible, but can be unknown) felt fingertip to fingertip (unknown) (no (unknown) (unknown) U Benzodiazepines (units (unknown) date) Scrn Negative unknown) (Negative) (unknown) (no (unknown) (unknown) U Marijuana (THC) (units (unknown) date) Screen Negative unknown) (Negative) (unknown) (no (unknown) (unknown) U Methamphetamines (units (unknown) date) Scrn Negative unknown) (Negative) (unknown) (no (unknown) (unknown) U Opiates 300ng/mL (units (unknown) date) cut Negative unknown) (Negative) (unknown) (no (unknown) (unknown) U Tricyclic (units (un known) date) Antidepress unknown) Negative (Negative) (unknown) (no (unknown) (unknown) Ur Amphetamines (units (unknown) date) Screen Negative unknown) (Negative) (unknown) (no (unknown) (unknown) Ur Barbiturates (units (unknown) date) Screen Negative unknown) (Negative) (unknown) (no (unknown) (unknown) Ur Culture (units (unk nown) date) Indicated? Specimen unknown) cultured (unknown) (no (unknown) (unknown) Ur MDMA Scrn (units (u nknown) date) (Ecstasy) Negative unknown) (Negative) (unknown) (no (unknown) (unknown) Ur Oxycodone (units (u nknown) date) Screen Negative unknown) (Negative) (unknown) (no (unknown) (unknown) Ur Phencyclidine (units (unknown) date) Scrn Negative unknown) (Negative) (unknown) (no (unknown) (unknown) Ur Squamous Epith (units (unknown) date) Cells 1-5 /hpf unknown) (0-5/HPF) (unknown) (no (unknown) (unknown) Urine Bacteria (units (unknown) date) Many (>30) H (None) unknown) (unknown) (no (unknown) (unknown) Urine Cocaine (units ( unknown) date) Screen Negative unknown) (Negative) (unknown) (no (unknown) (unknown) Urine Culture Stat (units (unknown) date) unknown) (unknown) (no (unknown) (unknown) Urine Dip (units (unkn own) date) unknown) (unknown) (no (unknown) (unknown) Urine Drug Screen, (units (unknown) date) Rapid Stat unknown) (unknown) (no (unknown) (unknown) Urine Methadone (units (unknown) date) Screen Negative unknown) (Negative) (unknown) (no (unknown) (unknown) Urine Microscopic (units (unknown) date) Stat unknown) (unknown) (no (unknown) (unknown) Urine RBC 1-5/hpf (units (unknown) date) (0-5/HPF) unknown) (unknown) (no (unknown) (unknown) Urine Specific (units (unknown) date) [place] 1.015 unknown) (unknown) (no (unknown) (unknown) Urine WBC 1-5/hpf (units (unknown) date) (0-5/HPF) unknown) (unknown) (no (unknown) (unknown) Visual (units (unkno wn) date) disturbances ?> 1 = unknown) Very mild sensitivity (unknown) (no (unknown) (unknown) Vital Signs - 8 hr (units (unknown) date) unknown) (unknown) (no (unknown) (unknown) Vital Signs (units (un known) date) unknown) (unknown) (no (unknown) (unknown) Vital signs: (units (u nknown) date) unknown) (unknown) (no (unknown) (unknown) [METOCLOPRAMIDE] (units (unknown) date) unknown) (unknown) (no (unknown) (unknown) acetaminophen 325 (units (unknown) date) mg tablet 325 mg PO unknown) Q6H PRN pain #20 tabs 02/05/20 (unknown) (no (unknown) (unknown) acetaminophen (units ( unknown) date) [Tylenol] 325 mg unknown) tablet (unknown) (no (unknown) (unknown) acute ischemic (units (unknown) date) changes. unknown) (unknown) (no (unknown) (unknown) alcohol in 300s, (units (unknown) date) she was last here unknown) in the emergency department in May of (unknown) (no (unknown) (unknown) alcohol intake (units (unknown) date) frequency: 3 or unknown) more drinks per day (unknown) (no (unknown) (unknown) alcohol intake: (units (unknown) date) former unknown) (unknown) (no (unknown) (unknown) and below (units (unkn own) date) unknown) (unknown) (no (unknown) (unknown) and cooperative (units (unknown) date) unknown) (unknown) (no (unknown) (unknown) at extension and (units (unknown) date) states that she unknown) feels symptoms of alcohol withdrawal. Denies (unknown) (no (unknown) (unknown) current (units (unkno wn) date) occupational unknown) exposures/hazards: Yes (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 with Pandemic ) (unknown) (no (unknown) (unknown) cystitis, she is (units (unknown) date) p.o. tolerant, unknown) still pending lab work (unknown) (no (unknown) (unknown) deliver since it (units (unknown) date) is after 17:00 and unknown) the diet order was ordered at 17:30. Samira (unknown) (no (unknown) (unknown) detox as well. (units (unknown) date) unknown) (unknown) (no (unknown) (unknown) diarrhea or (units (un known) date) current stool unknown) changes. (unknown) (no (unknown) (unknown) diphenhydramine (units (unknown) [...] mg unknown) capsule (unknown) (no (unknown) (unknown) draw her labs (units ( unknown) date) unknown) (unknown) (no (unknown) (unknown) education level: (units (unknown) date) college unknown) (unknown) (no (unknown) (unknown) emergency (units (unkn own) date) department on unknown) 06/18/2022 and a few days prior to that with a blood (unknown) (no (unknown) (unknown) renee/zoroastrianism: (units (unknown) date) Buddhist unknown) (unknown) (no (unknown) (unknown) fluid, EtOH, and (units (unknown) date) CIWA, ordered 2 mg unknown) of IV lorazepam for patient's symptoms, (unknown) (no (unknown) (unknown) for alcohol (units (un known) date) related complaints unknown) through 2019, and she presented to the [facility] (unknown) (no (unknown) (unknown) from social work (units (unknown) date) is aware and unknown) pending her lab work to arrange for inpatient (unknown) (no (unknown) (unknown) her urine (units (unkn own) date) microscopy came unknown) back positive for many bacteria, will treat for acute (unknown) (no (unknown) (unknown) household members: (units (unknown) date) spouse and children unknown) (unknown) (no (unknown) (unknown) hydrocodone (units (un known) date) [HYDROCODONE] unknown) AdvReac Unknown VOMITING Verified 07/12/22 16:18 (unknown) (no (unknown) (unknown) ibuprofen 600 mg (units (unknown) date) Tablet unknown) (unknown) (no (unknown) (unknown) ibuprofen 600 mg (units (unknown) date) tablet 600 mg PO unknown) Q6HR PRN Pain, Mild 07/04/20 (unknown) (no (unknown) (unknown) injuries, denies (units (unknown) date) chance of unknown) , denies any other ingestions, is pleasant, (unknown) (no (unknown) (unknown) intoxicated, (units (un known) date) pleasant, unknown) interactive and comfortable although active and fidgeting (unknown) (no (unknown) (unknown) limited history (units (unknown) date) currently due to unknown) intoxication. She states that she is recently (unknown) (no (unknown) (unknown) marital status: (units (unknown) date) unknown) (unknown) (no (unknown) (unknown) metoclopramide (units (unknown) date) Allergy Mild unknown) RASH/HIVES Verified 07/12/22 16:18 (unknown) (no (unknown) (unknown) nausea vomiting or (units (unknown) date) abdominal pain at unknown) this time. Denies any vomiting home or (unknown) (no (unknown) (unknown) number of (units (unkn own) date) children: 1 unknown) (unknown) (no (unknown) (unknown) numbness (units (unkno wn) date) unknown) (unknown) (no (unknown) (unknown) occupational [...] tablet,disintegrati unknown) ng (unknown) (no (unknown) (unknown) ordered p.o. (units (u nknown) date) Ativan for her unknown) symptoms and ask our into call lab to come up and (unknown) (no (unknown) (unknown) prenat.vits,otis,mi (units (unknown) date) [id number] 1 tab unknown) PO DAILY 12/30/19 07/03/20 (unknown) (no (unknown) (unknown) prenat.vits,otis,mi (units (unknown) date) [id number] Tablet unknown) (unknown) (no (unknown) (unknown) relapsed due to a (units (unknown) date) divorce with her unknown) . 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 (unknown) (no (unknown) (unknown) significant tremor (units (unknown) date) or tongue unknown) fasciculation, she has a mild tremor with her arms (unknown) (no (unknown) (unknown) social work and (units (unknown) date) orders are pending unknown) (unknown) (no (unknown) (unknown) special renee (units ( unknown) date) needs: No unknown) (unknown) (no (unknown) (unknown) substance abuse, (units (unknown) date) alcohol unknown) intoxication, psychosis, mood disorder, depression (unknown) (no (unknown) (unknown) substance use (units ( unknown) date) type: does not use unknown) (unknown) (no (unknown) (unknown) tablet vomiting (units (unknown) date) #14 tabs unknown) (unknown) (no (unknown) (unknown) tablet vomiting (units (unknown) date) #20 tabs unknown) (unknown) (no (unknown) (unknown) tablet vomiting (units (unknown) date) #30 tabs unknown) (unknown) (no (unknown) (unknown) tenderness or (units ( unknown) date) exquisite unknown) tenderness with exam. (unknown) (no (unknown) (unknown) that she drinks (units (unknown) date) vodka and admits to unknown) drinking heavily today, states that she took (unknown) (no (unknown) (unknown) the bottle upside (units (unknown) date) down and started unknown) checking from it. She denies any recent (unknown) (no (unknown) (unknown) tramadol 50 mg (units (unknown) date) tablet 50 mg PO Q6H unknown) PRN pain #10 tabs 06/12/22 (unknown) (no (unknown) (unknown) tramadol 50 mg (units (unknown) date) tablet unknown) (unknown) (no (unknown) (unknown) well as prior (units ( unknown) date) records if unknown) available. (unknown) (no (unknown) (unknown) wheezing, stridor, (units (unknown) date) or abnormal breath unknown) sounds. No retractions or tachypnea. (unknown) (no (unknown) (unknown) with regular axis (units (unknown) date) and intervals. No unknown) STEMI, ST segment changes, arrhythmia, or Result panel [id number] (unknown) (no date) (unknown) (unknown) 0 /ul (unkn own) (unknown) (no date) (unknown) (unknown) 0 /ul (unkn own) (unknown) (no date) (unknown) (unknown) 0.3 % (unkn own) (unknown) (no date) (unknown) (unknown) 0.9 % (unkn own) (unknown) (no date) (unknown) (unknown) 100 /ul (unkn own) (unknown) (no date) (unknown) (unknown) 11.5 g/dl (unkn own) (unknown) (no date) (unknown) (unknown) 1500 /ul (unkn own) (unknown) (no date) (unknown) (unknown) 17.3 % (unkn own) (unknown) (no date) (unknown) (unknown) 1700 /ul (unkn own) (unknown) (no date) (unknown) (unknown) 2.7 % (unkn own) (unknown) (no date) (unknown) (unknown) 226 x10 3/ul (unkn own) (unknown) (no date) (unknown) (unknown) 26.0 pg (unkn own) (unknown) (no date) (unknown) (unknown) 3.3 x10 3/ul (unkn own) (unknown) (no date) (unknown) (unknown) 32.7 % (unkn own) (unknown) (no date) (unknown) (unknown) 35.3 % (unkn own) (unknown) (no date) (unknown) (unknown) 4.44 x10 6/ul (unkn own) (unknown) (no date) (unknown) (unknown) 45.5 % (unkn own) (unknown) (no date) (unknown) (unknown) 50.6 % (unkn own) (unknown) (no date) (unknown) (unknown) 79.5 fl (unkn own) Result panel [id number] (unknown) (no (unknown) (unknown) (no value) (units (unk nown) date) unknown) (unknown) (no (unknown) (unknown) (1-3) #30 tabs (units (unknown) date) unknown) (unknown) (no (unknown) (unknown) (Benadryl) caps (units (unknown) date) unknown) (unknown) (no (unknown) (unknown) (Colace) (units (unkno wn) date) unknown) (unknown) (no (unknown) (unknown) (Tylenol) (units (unkn own) date) unknown) (unknown) (no (unknown) (unknown) [id number] (units (unkn own) date) unknown) (unknown) (no (unknown) (unknown) 07/12/22 07/12/22 (units (unknown) date) 07/12/22 unknown) Range/Units (unknown) (no (unknown) (unknown) 07/12/22 16:28 (units (unknown) date) unknown) (unknown) (no (unknown) (unknown) 07/12/22 16:32 (units (unknown) date) unknown) (unknown) (no (unknown) (unknown) 07/12/22 18:28 (units (unknown) date) unknown) (unknown) (no (unknown) (unknown) 07/12/22 19:15 (units (unknown) date) unknown) (unknown) (no (unknown) (unknown) 07/12/22 (units (unkno wn) date) Range/Units unknown) (unknown) (no (unknown) (unknown) 07/12/22 (units (unkno wn) date) unknown) (unknown) (no (unknown) (unknown) 1 tab PO DAILY (units (unknown) date) unknown) (unknown) (no (unknown) (unknown) 100 mg PO BID Qty: (units (unknown) date) 30 0RF unknown) (unknown) (no (unknown) (unknown) 16:10 07/12/22 (units (unknown) date) unknown) (unknown) (no (unknown) (unknown) 16:32 16:32 16:32 (units (unknown) date) unknown) (unknown) (no (unknown) (unknown) 1836 patient still (units (unknown) date) does not have an unknown) IV, has not received any IV fluid her (unknown) (no (unknown) (unknown) 18:53 (units (unkno wn) date) unknown) (unknown) (no (unknown) (unknown) 1900 still no IV, (units (unknown) date) patient is p.o. unknown) challenging, she received her p.o. lorazepam, (unknown) (no (unknown) (unknown) 1929, patient now (units (unknown) date) feels depressed, unknown) she is lying in bed, feeling bad, has (unknown) (no (unknown) (unknown) 19:15 (units (unkno wn) date) unknown) (unknown) (no (unknown) (unknown) 2022 with similar (units (unknown) date) symptoms. She comes unknown) in complaining of needing help, states (unknown) (no (unknown) (unknown) 25 mg PO [...] Qty: 30 0RF (unknown) (no (unknown) (unknown) 9 points (units (unkno wn) date) unknown) (unknown) (no (unknown) (unknown) Acetaminophen Stat (units (unknown) date) unknown) (unknown) (no (unknown) (unknown) Age/Sex: 31 / F (units (unknown) date) unknown) (unknown) (no (unknown) (unknown) Agitation ?> 2 = (units (unknown) date) (More severe unknown) symptoms) (unknown) (no (unknown) (unknown) Alcohol use (units (un known) date) disorder unknown) (unknown) (no (unknown) (unknown) Alcoholism (units (unk nown) date) unknown) (unknown) (no (unknown) (unknown) Allergies (units (unkn own) date) unknown) (unknown) (no (unknown) (unknown) Allergy/AdvReac (units (unknown) date) Type Severity unknown) Reaction Status Date / Time (unknown) (no (unknown) (unknown) Anemia (-2018) (units (unknown) date) unknown) (unknown) (no (unknown) (unknown) Anxiety ?> 2 = (units (unknown) date) (More severe unknown) symptoms) (unknown) (no (unknown) (unknown) Auditory (units (unkno wn) date) disturbances ?> 1 = unknown) Very mild harshness or ability to frighten (unknown) (no (unknown) (unknown) Baso # (Auto) (units ( unknown) date) (0-100) /uL unknown) (unknown) (no (unknown) (unknown) Baso # (Auto) 0 (units (unknown) date) (0-100) /uL unknown) (unknown) (no (unknown) (unknown) Baso % (Auto) (units ( unknown) date) (0-2) % unknown) (unknown) (no (unknown) (unknown) Baso % (Auto) 0.9 (units (unknown) date) (0-2) % unknown) (unknown) (no (unknown) (unknown) Bedside Urine (units ( unknown) date) Bilirubin - unknown) Negative (unknown) (no (unknown) (unknown) Bedside Urine (units ( unknown) date) Glucose Negative unknown) (unknown) (no (unknown) (unknown) Bedside Urine (units ( unknown) date) Ketone - Negative unknown) (unknown) (no (unknown) (unknown) Bedside Urine (units ( unknown) date) Leukocytes - unknown) Negative (unknown) (no (unknown) (unknown) Bedside Urine (units ( unknown) date) Nitrite + Positive unknown) (unknown) (no (unknown) (unknown) Bedside Urine (units ( unknown) date) Occult Blood - unknown) Negative (unknown) (no (unknown) (unknown) Bedside Urine (units ( unknown) date) Protein - Negative unknown) (unknown) (no (unknown) (unknown) Bedside Urine (units ( unknown) date) Urobilinogen - unknown) Negative (unknown) (no (unknown) (unknown) Bedside Urine pH (units (unknown) date) 6.0 unknown) (unknown) (no (unknown) (unknown) Blood Pressure (units (unknown) date) 112/62 07/12/22 unknown) 16:10 (unknown) (no (unknown) (unknown) Blood Pressure (units (unknown) date) 112/ unknown) (unknown) (no (unknown) (unknown) Blood Pressure (units (unknown) date) [Left Arm] 100/59 L unknown) (unknown) (no (unknown) (unknown) CIWA is now worse (units (unknown) date) and she has unknown) tremors, anxiety is worsening and agitation, (unknown) (no (unknown) (unknown) CIWA-Ar for (units (un known) date) Alcohol Withdrawal unknown) from [facility] on 07/12/2022 (unknown) (no (unknown) (unknown) COVID19 -Nasal (units (unknown) date) RAPID/Pre-Proc Stat unknown) (unknown) (no (unknown) (unknown) Cardiovascular: (units (unknown) date) regular rate and unknown) rhythm, no peripheral edema, warm extremities (unknown) (no (unknown) (unknown) Cephalexin HCl (units (unknown) date) (Cephalexin 250 Mg unknown) Capsule) 500 mg PO Q6H SANDY (unknown) (no (unknown) (unknown) Chief Complaint: (units (unknown) date) Alcohol unknown) intoxication, seeking detox (unknown) (no (unknown) (unknown) Chief Complaint: (units (unknown) date) Toxicology Problem unknown) (unknown) (no (unknown) (unknown) Clinical (units (unkno wn) date) Impression: unknown) (unknown) (no (unknown) (unknown) Clinical decision (units (unknown) date) rules or scores unknown) evaluated: CIWA of 9 at 1753 (unknown) (no (unknown) (unknown) Complete Blood (units (unknown) date) Count AUTO DIFF unknown) Stat (unknown) (no (unknown) (unknown) Comprehensive (units ( unknown) date) Metabolic Panel unknown) Stat (unknown) (no (unknown) (unknown) Consult to WINDOWS MIGRATION TECHNICIAN - (units (unknown) date) 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 unknown) Stat (unknown) (no (unknown) (unknown) Course of care: (units (unknown) date) Patient is a unknown) difficult IV stick, ordered IV with lab work, (unknown) (no (unknown) (unknown) Course (units (unkno wn) date) unknown) (unknown) (no (unknown) (unknown) : 1990 (units (unknown) date) Acct:[id number] unknown) (unknown) (no (unknown) (unknown) Date of Service: (units (unknown) date) 07/12/22 unknown) (unknown) (no (unknown) (unknown) Departure (units (unkn own) date) unknown) (unknown) (no (unknown) (unknown) Differential (units (u nknown) date) diagnoses include unknown) but are not limited to: Alcohol withdrawal, (unknown) (no (unknown) (unknown) Discharge Plan (units (unknown) date) unknown) (unknown) (no (unknown) (unknown) Discontinued (units (u nkn) date) Medications unknown) (unknown) (no (unknown) (unknown) ECG Data (units (unkno wn) date) unknown) (unknown) (no (unknown) (unknown) ED Orders (units (unkn own) date) unknown) (unknown) (no (unknown) (unknown) EKG independently (units (unknown) date) reviewed by myself unknown) at [] reveals normal sinus rhythm at [] bpm (unknown) (no (unknown) (unknown) EKG-12 Lead Stat (units (unknown) date) unknown) (unknown) (no (unknown) (unknown) ER Physician: (units ( unknown) date) Juliet Paz unknown) RECREATION PROGRAMMER (unknown) (no (unknown) (unknown) Emergency Report (units (unknown) date) unknown) (unknown) (no (unknown) (unknown) Eos # (Auto) (units (u nknown) date) (0-450) /uL unknown) (unknown) (no (unknown) (unknown) Eos # (Auto) 0 (units (unknown) date) (0-450) /uL unknown) (unknown) (no (unknown) (unknown) Eos % (Auto) (2-4) (units (unknown) date) % unknown) (unknown) (no (unknown) (unknown) Eos % (Auto) 0.3 L (units (unknown) date) (2-4) % unknown) (unknown) (no (unknown) (unknown) Esterase (units (unkno wn) date) unknown) (unknown) (no (unknown) (unknown) Ethanol (ETOH) (units (unknown) date) Stat unknown) (unknown) (no (unknown) (unknown) Exam Narrative: (units (unknown) date) unknown) (unknown) (no (unknown) (unknown) Exam (units (unkno wn) date) unknown) (unknown) (no (unknown) (unknown) Family History (units (unknown) date) (Reviewed 07/12/22 unknown) @ 17:50 by LYUDMILA Do) (unknown) (no (unknown) (unknown) Family/Other (units (u nknown) date) Alcoholism unknown) (unknown) (no (unknown) (unknown) Family/Other (units (u nknown) date) Diabetes mellitus unknown) (unknown) (no (unknown) (unknown) Father Alcoholism (units (unknown) date) unknown) (unknown) (no (unknown) (unknown) Tonia Schneider MD (units (unknown) date) [Primary Care unknown) Provider] (unknown) (no (unknown) (unknown) Folic Acid (Folic (units (unknown) date) Acid 1 Mg Tablet) 1 unknown) mg PO DAILY SANDY (unknown) (no (unknown) (unknown) Free T4, Direct (units (unknown) date) Thyroxine Stat unknown) (unknown) (no (unknown) (unknown) GI: abdomen soft, (units (unknown) date) nontender to unknown) palpation, nondistended, without masses, rebound (unknown) (no (unknown) (unknown) General (units (unkno wn) date) unknown) (unknown) (no (unknown) (unknown) General: (units (unkno wn) date) cooperative, unknown) comfortable, in no acute distress, well groomed, appears (unknown) (no (unknown) (unknown) Grandfather (units (un [...] extraction (-2013) unknown) (unknown) (no (unknown) (unknown) HEENT: symmetrical (units (unknown) date) facial expressions, unknown) dry mucous membranes (unknown) (no (unknown) (unknown) HPI - Alcohol (units ( unknown) date) unknown) (unknown) (no (unknown) (unknown) HPI narrative: (units (unknown) date) unknown) (unknown) (no (unknown) (unknown) Hct (36-46) % (units ( unknown) date) unknown) (unknown) (no (unknown) (unknown) Hct 35.3 L (36-46) (units (unknown) date) % unknown) (unknown) (no (unknown) (unknown) Headache/fullness (units (unknown) date) in head ?> 1 = Very unknown) mild (unknown) (no (unknown) (unknown) Hgb (12.0-16.0) (units (unknown) date) g/dL unknown) (unknown) (no (unknown) (unknown) Hgb 11.5 L (units (unk nown) date) (12.0-16.0) g/dL unknown) (unknown) (no (unknown) (unknown) History of Present (units (unknown) date) Illness unknown) (unknown) (no (unknown) (unknown) Home Medications (units (unknown) date) unknown) (unknown) (no (unknown) (unknown) I have (units (unkno wn) date) independently unknown) reviewed the patient's vital signs and nursing notes as (unknown) (no (unknown) (unknown) INPUTS: (units (unkno wn) date) unknown) (unknown) (no (unknown) (unknown) Independent (units (un known) date) historian: Patient unknown) (unknown) (no (unknown) (unknown) Initial Vital (units ( unknown) date) Signs unknown) (unknown) (no (unknown) (unknown) Initial Vital (units ( unknown) date) Signs: unknown) (unknown) (no (unknown) (unknown) Insomnia (units (unkno wn) date) unknown) (unknown) (no (unknown) (unknown) Interpretation: (units (unknown) date) unknown) (unknown) (no (unknown) (unknown) [facility] (units (unknown) date) [address] unknown) [place] [address] (unknown) (no (unknown) (unknown) Lab Data (units (unkno wn) date) unknown) (unknown) (no (unknown) (unknown) Lab Results (units (un known) date) unknown) (unknown) (no (unknown) (unknown) Labs: (units (unkno wn) date) unknown) (unknown) (no (unknown) (unknown) Last Admin: (units (un known) date) 07/12/22 18:39 unknown) Dose: 4 mg (unknown) (no (unknown) (unknown) Last Admin: (units (un known) date) 07/12/22 18:40 unknown) Dose: 1 mg (unknown) (no (unknown) (unknown) Last Admin: (units (un known) date) 07/12/22 18:56 unknown) Dose: Not Given (unknown) (no (unknown) (unknown) Lorazepam (units (unkn own) date) (Lorazepam 0.5 Mg unknown) Tablet) 1 mg PO NOW ONE (unknown) (no (unknown) (unknown) Lorazepam (units (unkn own) date) (Lorazepam 0.5 Mg unknown) Tablet) 2 mg PO NOW ONE (unknown) (no (unknown) (unknown) Lorazepam (units (unkn own) date) (Lorazepam 2 Mg/Ml unknown) Inj) 2 mg IV NOW ONE (unknown) (no (unknown) (unknown) Lymph # (Auto) (units (unknown) date) (4874-1842) /uL unknown) (unknown) (no (unknown) (unknown) Lymph # (Auto) (units (unknown) date) 1700 ([id number]) unknown) /uL (unknown) (no (unknown) (unknown) Lymph % (Auto) (units (unknown) date) (25-40) % unknown) (unknown) (no (unknown) (unknown) Lymph % (Auto) (units (unknown) date) 50.6 H (25-40) % unknown) (unknown) (no (unknown) (unknown) MCH (26-34) PG (units (unknown) date) unknown) (unknown) (no (unknown) (unknown) MCH 26.0 (26-34) (units (unknown) date) PG unknown) (unknown) (no (unknown) (unknown) MCHC (30-36) % (units (unknown) date) unknown) (unknown) (no (unknown) (unknown) MCHC 32.7 (30-36) (units (unknown) date) % unknown) (unknown) (no (unknown) (unknown) MCV (80-100) fL (units (unknown) date) unknown) (unknown) (no (unknown) (unknown) MCV 79.5 L (units (unk nown) date) (80-100) fL unknown) (unknown) (no (unknown) (unknown) MDM - Alcohol (units ( unknown) date) unknown) (unknown) (no (unknown) (unknown) MDM Narrative (units ( unknown) date) unknown) (unknown) (no (unknown) (unknown) MIPS: This (units (unk nown) date) encounter doesn't unknown) have any diagnosis' associated with MIPS criteria. (unknown) (no (unknown) (unknown) MSK: moves all (units (unknown) date) extremities, unknown) neurovascularly intact, no weakness, normal tone no (unknown) (no (unknown) (unknown) Medical History (units (unknown) date) (Reviewed 07/12/22 unknown) @ 17:50 by LYUDMILA Do) (unknown) (no (unknown) (unknown) Medical decision (units (unknown) date) making narrative: unknown) (unknown) (no (unknown) (unknown) Medication (units (unk nown) date) Instructions unknown) Recorded Confirmed (unknown) (no (unknown) (unknown) Medication (units (unk nown) date) Instructions unknown) Recorded (unknown) (no (unknown) (unknown) Menometrorrhagia (units (unknown) date) unknown) (unknown) (no (unknown) (unknown) Mode of arrival: (units (unknown) date) Ambulatory unknown) (unknown) (no (unknown) (unknown) Yates # (Auto) (units ( unknown) date) (0-900) /uL unknown) (unknown) (no (unknown) (unknown) Yates # (Auto) 100 (units (unknown) date) (0-900) /uL unknown) (unknown) (no (unknown) (unknown) Yates % (Auto) (units ( unknown) date) (3-14) % unknown) (unknown) (no (unknown) (unknown) Yates % (Auto) 2.7 (units (unknown) date) L (3-14) % unknown) (unknown) (no (unknown) (unknown) Mother Diabetes (units (unknown) date) mellitus unknown) (unknown) (no (unknown) (unknown) Narrative (units (unkn own) date) unknown) (unknown) (no (unknown) (unknown) Nausea/vomiting ?> (units (unknown) date) 0 = No nausea and unknown) no vomiting (unknown) (no (unknown) (unknown) Neuro: normal (units ( unknown) date) speech and unknown) cognition, A+O x3, ambulatory, clear speech (unknown) (no (unknown) (unknown) Neut # (Auto) (units ( unknown) date) (1949-6628) /uL unknown) (unknown) (no (unknown) (unknown) Neut # (Auto) 1500 (units (unknown) date) (7311-6851) /uL unknown) (unknown) (no (unknown) (unknown) Neut % (Auto) (units ( unknown) date) (50-75) % unknown) (unknown) (no (unknown) (unknown) Neut % (Auto) 45.5 (units (unknown) date) L (50-75) % unknown) (unknown) (no (unknown) (unknown) No Action (units (unkn own) date) unknown) (unknown) (no (unknown) (unknown) Obesity (units (unkno wn) date) unknown) (unknown) (no (unknown) (unknown) Ondansetron HCl (units (unknown) date) (Ondansetron 4 Mg unknown) Odt) 4 mg SL NOW ONE (unknown) (no (unknown) (unknown) Ondansetron HCl (units (unknown) date) (Ondansetron 4 Mg/2 unknown) Ml Inj) 4 mg IV Q6HR PRN (unknown) (no (unknown) (unknown) Ordered: (units (unkno wn) date) unknown) (unknown) (no (unknown) (unknown) Orders (units (unkno wn) date) unknown) (unknown) (no (unknown) (unknown) Orientation/cloudi (units (unknown) date) ng of sensorium ?> unknown) 0 = Oriented, can do serial additions (unknown) (no (unknown) (unknown) Overweight (units (unk nown) date) unknown) (unknown) (no (unknown) (unknown) Oxygen Delivery (units (unknown) date) Method Room Air unknown) 07/12/22 16:10 (unknown) (no (unknown) (unknown) Oxygen Delivery (units (unknown) date) Method Room Air unknown) Room Air (unknown) (no (unknown) (unknown) PRN Reason: Nausea (units (unknown) date) And Vomiting unknown) (unknown) (no (unknown) (unknown) Paroxysmal sweats (units (unknown) date) ?> 0 = No sweat unknown) visible (unknown) (no (unknown) (unknown) Patient History (units (unknown) date) unknown) (unknown) (no (unknown) (unknown) Patient is (units (unk nown) date) appropriate for unknown) outpatient management. (unknown) (no (unknown) (unknown) Patient: (units (unkno wn) date) Sarah Connors R unknown) MR#: M (unknown) (no (unknown) (unknown) Patients with (units ( unknown) date) scores >= may unknown) require medication for withdrawal. (unknown) (no (unknown) (unknown) Pertinent lab (units ( unknown) date) findings reviewed: unknown) (unknown) (no (unknown) (unknown) Plt Count (units (unkn own) date) (150-400) X103/uL unknown) (unknown) (no (unknown) (unknown) Plt Count 226 (units ( unknown) date) (150-400) X103/uL unknown) (unknown) (no (unknown) (unknown) Point of Care (units ( unknown) date) Testing unknown) (unknown) (no (unknown) (unknown) Test (units (unknown) date) Results Negative unknown) (unknown) (no (unknown) (unknown) Prescriptions: (units (unknown) date) unknown) (unknown) (no (unknown) (unknown) Previous Rx's (units ( unknown) date) unknown) (unknown) (no (unknown) (unknown) Psych: mental (units ( unknown) date) status is grossly unknown) normal, congruent mood, normal affect, pleasant (unknown) (no (unknown) (unknown) Pulse Oximetry 99 (units (unknown) date) 07/12/22 16:10 unknown) (unknown) (no (unknown) (unknown) Pulse Oximetry 99 (units (unknown) date) 99 unknown) (unknown) (no (unknown) (unknown) Pulse Rate 82 (units ( unknown) date) 07/12/22 16:10 unknown) (unknown) (no (unknown) (unknown) Pulse Rate 82 86 (units (unknown) date) unknown) (unknown) (no (unknown) (unknown) Questions are (units ( unknown) date) addressed and there unknown) is agreement with the plan and for follow-up. (unknown) (no (unknown) (unknown) RBC (4.0-5.2) (units ( unknown) date) X106/uL unknown) (unknown) (no (unknown) (unknown) RBC 4.44 (4.0-5.2) (units (unknown) date) X106/uL unknown) (unknown) (no (unknown) (unknown) RDW (11.6-14.8) % (units (unknown) date) unknown) (unknown) (no (unknown) (unknown) RDW 17.3 H (units (unk nown) date) (11.6-14.8) % unknown) (unknown) (no (unknown) (unknown) RESULT SUMMARY: (units (unknown) date) unknown) (unknown) (no (unknown) (unknown) ROS Unobtainable: (units (unknown) date) All systems unknown) reviewed + are unremarkable except as noted in HPI (unknown) (no (unknown) (unknown) Referrals: (units (unk nown) date) unknown) (unknown) (no (unknown) (unknown) Related Data (units (u nknown) date) unknown) (unknown) (no (unknown) (unknown) Respiratory Rate (units (unknown) date) 14 07/12/22 16:10 unknown) (unknown) (no (unknown) (unknown) Respiratory Rate (units (unknown) date) 14 22 unknown) (unknown) (no (unknown) (unknown) Respiratory: (units (u nknown) date) normal effort, able unknown) to speak in complete sentences, without (unknown) (no (unknown) (unknown) Review of Systems (units (unknown) date) unknown) (unknown) (no (unknown) (unknown) Reviewed vitals (units (unknown) date) signs and nursing unknown) notes. (unknown) (no (unknown) (unknown) S/P myringotomy (units (unknown) date) with insertion of unknown) tube (unknown) (no (unknown) (unknown) SARS-CoV-2 (PCR) (units (unknown) date) (Negative) unknown) (unknown) (no (unknown) (unknown) SARS-CoV-2 (PCR) (units (unknown) date) Negative (Negative) unknown) (unknown) (no (unknown) (unknown) (spontaneous (units (unknown) date) vaginal delivery) unknown) (-09/05/18) (unknown) (no (unknown) (unknown) Salicylate Stat (units (unknown) date) unknown) (unknown) (no (unknown) (unknown) She was given a (units (unknown) date) couple water, a unknown) diet order was ordered however they may not (unknown) (no (unknown) (unknown) Signed By: (units (unk nown) date) unknown) (unknown) (no (unknown) (unknown) Skin: brisk (units (un known) date) capillary refill, unknown) without pallor or erythema (unknown) (no (unknown) (unknown) Smoker (units (unkno wn) date) unknown) (unknown) (no (unknown) (unknown) Smoking Status: (units (unknown) date) Former smoker unknown) (unknown) (no (unknown) (unknown) Social History (units (unknown) date) (Reviewed 07/12/22 unknown) @ 17:50 by Juliet Paz [facility]) (unknown) (no (unknown) (unknown) Social (units (unkno wn) date) considerations that unknown) may affect disposition: none (unknown) (no (unknown) (unknown) Sodium Chloride (units (unknown) date) (Normal Saline unknown) 0.9%) 1,000 mls @ 1,000 mls/hr IV BOLUS ONE (unknown) (no (unknown) (unknown) Source: patient (units (unknown) date) unknown) (unknown) (no (unknown) (unknown) Stated Complaint: (units (unknown) date) Stress/Depression unknown) (unknown) (no (unknown) (unknown) Stop: 07/12/22 (units (unknown) date) 17:33 unknown) (unknown) (no (unknown) (unknown) Stop: 07/12/22 (units (unknown) date) 17:45 unknown) (unknown) (no (unknown) (unknown) Stop: 07/12/22 (units (unknown) date) 18:28 unknown) (unknown) (no (unknown) (unknown) Stop: 07/12/22 (units (unknown) date) 18:31 unknown) (unknown) (no (unknown) (unknown) Stop: 07/12/22 (units (unknown) date) 19:25 unknown) (unknown) (no (unknown) (unknown) Substance Use (units ( unknown) date) Type: does not use unknown) (unknown) (no (unknown) (unknown) Surgical History (units (unknown) date) (Reviewed 07/12/22 unknown) @ 17:50 by Juliet Paz [facility]) (unknown) (no (unknown) (unknown) Tactile (units (unkno wn) date) disturbances ?> 1 = unknown) Very mild itching, pin and needles, burning, or (unknown) (no (unknown) (unknown) Temperature 97.2 F (units (unknown) date) L 07/12/22 16:10 unknown) (unknown) (no (unknown) (unknown) Temperature 97.2 F (units (unknown) date) L unknown) (unknown) (no (unknown) (unknown) Thiamine HCl (units (u nknown) date) (Thiamine 100 Mg unknown) Tablet) 100 mg PO NOW ONE (unknown) (no (unknown) (unknown) Thiamine HCl 200 (units (unknown) date) mg/ Sodium unknown) (Chloride) 102 mls @ 408 mls/hr IV NOW ONE (unknown) (no (unknown) (unknown) This is a (units (unkn own) date) 31-year-old female unknown) with history of alcohol abuse and appears to have (unknown) (no (unknown) (unknown) Thyroid (units (unkno wn) date) Stimulating Hormone unknown) Stat (unknown) (no (unknown) (unknown) Time Seen by (units (u nknown) date) Provider: 07/12/22 unknown) 17:05 (unknown) (no (unknown) (unknown) Tremor ?> 1 = Not (units (unknown) date) visible, but can be unknown) felt fingertip to fingertip (unknown) (no (unknown) (unknown) U Benzodiazepines (units (unknown) date) Scrn (Negative) unknown) (unknown) (no (unknown) (unknown) U Benzodiazepines (units (unknown) date) Scrn Negative unknown) (Negative) (unknown) (no (unknown) (unknown) U Marijuana (THC) (units (unknown) date) Screen (Negative) unknown) (unknown) (no (unknown) (unknown) U Marijuana (THC) (units (unknown) date) Screen Negative unknown) (Negative) (unknown) (no (unknown) (unknown) U Methamphetamines (units (unknown) date) Scrn (Negative) unknown) (unknown) (no (unknown) (unknown) U Methamphetamines (units (unknown) date) Scrn Negative unknown) (Negative) (unknown) (no (unknown) (unknown) U Opiates 300ng/mL (units (unknown) date) cut (Negative) unknown) (unknown) (no (unknown) (unknown) U Opiates 300ng/mL (units (unknown) date) cut Negative unknown) (Negative) (unknown) (no (unknown) (unknown) U Tricyclic (units (un known) date) Antidepress unknown) (Negative) (unknown) (no (unknown) (unknown) U Tricyclic (units (un known) date) Antidepress unknown) Negative (Negative) (unknown) (no (unknown) (unknown) Ur Amphetamines (units (unknown) date) Screen (Negative) unknown) (unknown) (no (unknown) (unknown) Ur Amphetamines (units (unknown) date) Screen Negative unknown) (Negative) (unknown) (no (unknown) (unknown) Ur Barbiturates (units (unknown) date) Screen (Negative) unknown) (unknown) (no (unknown) (unknown) Ur Barbiturates (units (unknown) date) Screen Negative unknown) (Negative) (unknown) (no (unknown) (unknown) Ur Culture (units (unk nown) date) Indicated? Specimen unknown) cultured (unknown) (no (unknown) (unknown) Ur Culture (units (unk nown) date) Indicated? unknown) (unknown) (no (unknown) (unknown) Ur MDMA Scrn (units (u nknown) date) (Ecstasy) unknown) (Negative) (unknown) (no (unknown) (unknown) Ur MDMA Scrn (units (u nknown) date) (Ecstasy) Negative unknown) (Negative) (unknown) (no (unknown) (unknown) Ur Oxycodone (units (u nknown) date) Screen (Negative) unknown) (unknown) (no (unknown) (unknown) Ur Oxycodone (units (u nknown) date) Screen Negative unknown) (Negative) (unknown) (no (unknown) (unknown) Ur Phencyclidine (units (unknown) date) Scrn (Negative) unknown) (unknown) (no (unknown) (unknown) Ur Phencyclidine (units (unknown) date) Scrn Negative unknown) (Negative) (unknown) (no (unknown) (unknown) Ur Squamous Epith (units (unknown) date) Cells (0-5/HPF) unknown) (unknown) (no (unknown) (unknown) Ur Squamous Epith (units (unknown) date) Cells 1-5 /hpf unknown) (0-5/HPF) (unknown) (no (unknown) (unknown) Urine Bacteria (units (unknown) date) (None) unknown) (unknown) (no (unknown) (unknown) Urine Bacteria (units (unknown) date) Many (>30) H (None) unknown) (unknown) (no (unknown) (unknown) Urine Cocaine (units ( unknown) date) Screen (Negative) unknown) (unknown) (no (unknown) (unknown) Urine Cocaine (units ( unknown) date) Screen Negative unknown) (Negative) (unknown) (no (unknown) (unknown) Urine Culture Stat (units (unknown) date) unknown) (unknown) (no (unknown) (unknown) Urine Dip (units (unkn own) date) unknown) (unknown) (no (unknown) (unknown) Urine Drug Screen, (units (unknown) date) Rapid Stat unknown) (unknown) (no (unknown) (unknown) Urine Methadone (units (unknown) date) Screen (Negative) unknown) (unknown) (no (unknown) (unknown) Urine Methadone (units (unknown) date) Screen Negative unknown) (Negative) (unknown) (no (unknown) (unknown) Urine Microscopic (units (unknown) date) Stat unknown) (unknown) (no (unknown) (unknown) Urine RBC (units (unkn own) date) (0-5/HPF) unknown) (unknown) (no (unknown) (unknown) Urine RBC 1-5/hpf (units (unknown) date) (0-5/HPF) unknown) (unknown) (no (unknown) (unknown) Urine Specific (units (unknown) date) [place] 1.015 unknown) (unknown) (no (unknown) (unknown) Urine WBC (units (unkn own) date) (0-5/HPF) unknown) (unknown) (no (unknown) (unknown) Urine WBC 1-5/hpf (units (unknown) date) (0-5/HPF) unknown) (unknown) (no (unknown) (unknown) Visual (units (unkno wn) date) disturbances ?> 1 = unknown) Very mild sensitivity (unknown) (no (unknown) (unknown) Vital Signs - 8 hr (units (unknown) date) unknown) (unknown) (no (unknown) (unknown) Vital Signs (units (un known) date) unknown) (unknown) (no (unknown) (unknown) Vital signs: (units (u nknown) date) unknown) (unknown) (no (unknown) (unknown) WBC (4.5-11.0) (units (unknown) date) X103/uL unknown) (unknown) (no (unknown) (unknown) WBC 3.3 L (units (unkn own) date) (4.5-11.0) X103/uL [...] mg unknown) tablet (unknown) (no (unknown) (unknown) acute ischemic (units (unknown) date) changes. unknown) (unknown) (no (unknown) (unknown) alcohol in 300s, (units (unknown) date) she was last here unknown) in the emergency department in May of (unknown) (no (unknown) (unknown) alcohol intake (units (unknown) date) frequency: 3 or unknown) more drinks per day (unknown) (no (unknown) (unknown) alcohol intake: (units (unknown) date) former unknown) (unknown) (no (unknown) (unknown) and below (units (unkn own) date) unknown) (unknown) (no (unknown) (unknown) and cooperative (units (unknown) date) unknown) (unknown) (no (unknown) (unknown) at extension and (units (unknown) date) states that she unknown) feels symptoms of alcohol withdrawal. Denies (unknown) (no (unknown) (unknown) current (units (unkno wn) date) occupational unknown) exposures/hazards: Yes (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 with Pandemic ) (unknown) (no (unknown) (unknown) cystitis, she is (units (unknown) date) p.o. tolerant, unknown) still pending lab work (unknown) (no (unknown) (unknown) deliver since it (units (unknown) date) is after 17:00 and unknown) the diet order was ordered at 17:30. Samira (unknown) (no (unknown) (unknown) detox as well. (units (unknown) date) unknown) (unknown) (no (unknown) (unknown) diarrhea or (units (un known) date) current stool unknown) changes. (unknown) (no (unknown) (unknown) diphenhydramine (units (unknown) [...] mg unknown) capsule (unknown) (no (unknown) (unknown) draw her labs (units ( unknown) date) unknown) (unknown) (no (unknown) (unknown) education level: (units (unknown) date) college unknown) (unknown) (no (unknown) (unknown) emergency (units (unkn own) date) department on unknown) 06/18/2022 and a few days prior to that with a blood (unknown) (no (unknown) (unknown) renee/zoroastrianism: (units (unknown) date) Buddhist unknown) (unknown) (no (unknown) (unknown) fluid, EtOH, and (units (unknown) date) CIWA, ordered 2 mg unknown) of IV lorazepam for patient's symptoms, (unknown) (no (unknown) (unknown) for alcohol (units (un known) date) related complaints unknown) through 2019, and she presented to the [facility] (unknown) (no (unknown) (unknown) from social work (units (unknown) date) is aware and unknown) pending her lab work to arrange for inpatient (unknown) (no (unknown) (unknown) her urine (units (unkn own) date) microscopy came unknown) back positive for many bacteria, will treat for acute (unknown) (no (unknown) (unknown) household members: (units (unknown) date) spouse and children unknown) (unknown) (no (unknown) (unknown) hydrocodone (units (un known) date) [HYDROCODONE] unknown) AdvReac Unknown VOMITING Verified 07/12/22 16:18 (unknown) (no (unknown) (unknown) ibuprofen 600 mg (units (unknown) date) Tablet unknown) (unknown) (no (unknown) (unknown) ibuprofen 600 mg (units (unknown) date) tablet 600 mg PO unknown) Q6HR PRN Pain, Mild 07/04/20 (unknown) (no (unknown) (unknown) injuries, denies (units (unknown) date) chance of unknown) , denies any other ingestions, is pleasant, (unknown) (no (unknown) (unknown) intoxicated, (units (un known) date) pleasant, unknown) interactive and comfortable although active and fidgeting (unknown) (no (unknown) (unknown) limited history (units (unknown) date) currently due to unknown) intoxication. She states that she is recently (unknown) (no (unknown) (unknown) lorazepam for this (units (unknown) date) unknown) (unknown) (no (unknown) (unknown) marital status: (units (unknown) date) unknown) (unknown) (no (unknown) (unknown) metoclopramide (units (unknown) date) Allergy Mild unknown) RASH/HIVES Verified 07/12/22 16:18 (unknown) (no (unknown) (unknown) nausea vomiting or (units (unknown) date) abdominal pain at unknown) this time. Denies any vomiting home or (unknown) (no (unknown) (unknown) number of (units (unkn own) date) children: 1 unknown) (unknown) (no (unknown) (unknown) numbness (units (unkno wn) date) unknown) (unknown) (no (unknown) (unknown) occupational [...] tablet,disintegrati unknown) ng (unknown) (no (unknown) (unknown) ordered p.o. (units (u nknown) date) Ativan for her unknown) symptoms and ask our into call lab to come up and (unknown) (no (unknown) (unknown) prenat.vits,otis,mi (units (unknown) date) [id number] 1 tab unknown) PO DAILY 12/30/19 07/03/20 (unknown) (no (unknown) (unknown) prenat.vits,otis,mi (units (unknown) date) [id number] Tablet unknown) (unknown) (no (unknown) (unknown) relapsed due to a (units (unknown) date) divorce with her unknown) . 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 (unknown) (no (unknown) (unknown) significant tremor (units (unknown) date) or tongue unknown) fasciculation, she has a mild tremor with her arms (unknown) (no (unknown) (unknown) social work and (units (unknown) date) orders are pending unknown) (unknown) (no (unknown) (unknown) special renee (units ( unknown) date) needs: No unknown) (unknown) (no (unknown) (unknown) substance abuse, (units (unknown) date) alcohol unknown) intoxication, psychosis, mood disorder, depression (unknown) (no (unknown) (unknown) substance use (units ( unknown) date) type: does not use unknown) (unknown) (no (unknown) (unknown) tablet vomiting (units (unknown) date) #14 tabs unknown) (unknown) (no (unknown) (unknown) tablet vomiting (units (unknown) date) #20 tabs unknown) (unknown) (no (unknown) (unknown) tablet vomiting (units (unknown) date) #30 tabs unknown) (unknown) (no (unknown) (unknown) tenderness or (units ( unknown) date) exquisite unknown) tenderness with exam. (unknown) (no (unknown) (unknown) that she drinks (units (unknown) date) vodka and admits to unknown) drinking heavily today, states that she took (unknown) (no (unknown) (unknown) the bottle upside (units (unknown) date) down and started unknown) checking from it. She denies any recent (unknown) (no (unknown) (unknown) tramadol 50 mg (units (unknown) date) tablet 50 mg PO Q6H unknown) PRN pain #10 tabs 06/12/22 (unknown) (no (unknown) (unknown) tramadol 50 mg (units (unknown) date) tablet unknown) (unknown) (no (unknown) (unknown) tremors, no (units (un known) date) tachycardia, her unknown) CIWA is currently 10, ordered another p.o. dose of (unknown) (no (unknown) (unknown) well as prior (units ( unknown) date) records if unknown) available. (unknown) (no (unknown) (unknown) wheezing, stridor, (units (unknown) date) or abnormal breath unknown) sounds. No retractions or tachypnea. (unknown) (no (unknown) (unknown) with regular axis (units (unknown) date) and intervals. No unknown) STEMI, ST segment changes, arrhythmia, or Result panel 2349 (unknown) (no (unknown) (unknown) (no value) (units (unk nown) date) unknown) (unknown) (no (unknown) (unknown) (1-3) #30 tabs (units (unknown) date) unknown) (unknown) (no (unknown) (unknown) (Benadryl) caps (units (unknown) date) unknown) (unknown) (no (unknown) (unknown) (Colace) (units (unkno wn) date) unknown) (unknown) (no (unknown) (unknown) (Tylenol) (units (unkn own) date) unknown) (unknown) (no (unknown) (unknown) [id number] (units (unkn own) date) unknown) (unknown) (no (unknown) (unknown) 07/12/22 07/12/22 (units (unknown) date) 07/12/22 unknown) Range/Units (unknown) (no (unknown) (unknown) 07/12/22 16:28 (units (unknown) date) unknown) (unknown) (no (unknown) (unknown) 07/12/22 16:32 (units (unknown) date) unknown) (unknown) (no (unknown) (unknown) 07/12/22 18:28 (units (unknown) date) unknown) (unknown) (no (unknown) (unknown) 07/12/22 19:15 (units (unknown) date) unknown) (unknown) (no (unknown) (unknown) 07/12/22 (units (unkno wn) date) Range/Units unknown) (unknown) (no (unknown) (unknown) 07/12/22 (units (unkno wn) date) unknown) (unknown) (no (unknown) (unknown) 1 tab PO DAILY (units (unknown) date) unknown) (unknown) (no (unknown) (unknown) 100 mg PO BID Qty: (units (unknown) date) 30 0RF unknown) (unknown) (no (unknown) (unknown) 16:10 07/12/22 (units (unknown) date) unknown) (unknown) (no (unknown) (unknown) 16:32 16:32 16:32 (units (unknown) date) unknown) (unknown) (no (unknown) (unknown) 1835 patient still (units (unknown) date) does not have an unknown) IV, has not received any IV fluid her (unknown) (no (unknown) (unknown) 18:53 (units (unkno wn) date) unknown) (unknown) (no (unknown) (unknown) 190 still no IV, (units (unknown) date) patient is p.o. unknown) challenging, she received her p.o. lorazepam, (unknown) (no (unknown) (unknown) 1929, patient now (units (unknown) date) feels depressed, unknown) she is lying in bed, feeling bad, has (unknown) (no (unknown) (unknown) 19:15 (units (unkno wn) date) unknown) (unknown) (no (unknown) (unknown) 2022 with similar (units (unknown) date) symptoms. She comes unknown) in complaining of needing help, states (unknown) (no (unknown) (unknown) 25 mg PO [...] Qty: 30 0RF (unknown) (no (unknown) (unknown) 9 points (units (unkno wn) date) unknown) (unknown) (no (unknown) (unknown) Acetaminophen Stat (units (unknown) date) unknown) (unknown) (no (unknown) (unknown) Age/Sex: 31 / F (units (unknown) date) unknown) (unknown) (no (unknown) (unknown) Agitation ?> 2 = (units (unknown) date) (More severe unknown) symptoms) (unknown) (no (unknown) (unknown) Alcohol use (units (un known) date) disorder, Acute unknown) cystitis (unknown) (no (unknown) (unknown) Alcoholism (units (unk nown) date) unknown) (unknown) (no (unknown) (unknown) Allergies (units (unkn own) date) unknown) (unknown) (no (unknown) (unknown) Allergy/AdvReac (units (unknown) date) Type Severity unknown) Reaction Status Date / Time (unknown) (no (unknown) (unknown) Anemia (-2018) (units (unknown) date) unknown) (unknown) (no (unknown) (unknown) Anxiety ?> 2 = (units (unknown) date) (More severe unknown) symptoms) (unknown) (no (unknown) (unknown) Auditory (units (unkno wn) date) disturbances ?> 1 = unknown) Very mild harshness or ability to frighten (unknown) (no (unknown) (unknown) Baso # (Auto) (units ( unknown) date) (0-100) /uL unknown) (unknown) (no (unknown) (unknown) Baso # (Auto) 0 (units (unknown) date) (0-100) /uL unknown) (unknown) (no (unknown) (unknown) Baso % (Auto) (units ( unknown) date) (0-2) % unknown) (unknown) (no (unknown) (unknown) Baso % (Auto) 0.9 (units (unknown) date) (0-2) % unknown) (unknown) (no (unknown) (unknown) Bedside Urine (units ( unknown) date) Bilirubin - unknown) Negative (unknown) (no (unknown) (unknown) Bedside Urine (units ( unknown) date) Glucose Negative unknown) (unknown) (no (unknown) (unknown) Bedside Urine (units ( unknown) date) Ketone - Negative unknown) (unknown) (no (unknown) (unknown) Bedside Urine (units ( unknown) date) Leukocytes - unknown) Negative (unknown) (no (unknown) (unknown) Bedside Urine (units ( unknown) date) Nitrite + Positive unknown) (unknown) (no (unknown) (unknown) Bedside Urine (units ( unknown) date) Occult Blood - unknown) Negative (unknown) (no (unknown) (unknown) Bedside Urine (units ( unknown) date) Protein - Negative unknown) (unknown) (no (unknown) (unknown) Bedside Urine (units ( unknown) date) Urobilinogen - unknown) Negative (unknown) (no (unknown) (unknown) Bedside Urine pH (units (unknown) date) 6.0 unknown) (unknown) (no (unknown) (unknown) Blood Pressure (units (unknown) date) 112/62 07/12/22 unknown) 16:10 (unknown) (no (unknown) (unknown) Blood Pressure (units (unknown) date) 112/ unknown) (unknown) (no (unknown) (unknown) Blood Pressure (units (unknown) date) [Left Arm] 100/59 L unknown) (unknown) (no (unknown) (unknown) CIWA is now worse (units (unknown) date) and she has unknown) tremors, anxiety is worsening and agitation, (unknown) (no (unknown) (unknown) CIWA-Ar for (units (un known) date) Alcohol Withdrawal unknown) from [facility] on 07/12/2022 (unknown) (no (unknown) (unknown) COVID19 -Nasal (units (unknown) date) RAPID/Pre-Proc Stat unknown) (unknown) (no (unknown) (unknown) Cardiovascular: (units (unknown) date) regular rate and unknown) rhythm, no peripheral edema, warm extremities (unknown) (no (unknown) (unknown) Cephalexin HCl (units (unknown) date) (Cephalexin 250 Mg unknown) Capsule) 500 mg PO Q6H SANDY (unknown) (no (unknown) (unknown) Chief Complaint: (units (unknown) date) Alcohol unknown) intoxication, seeking detox (unknown) (no (unknown) (unknown) Chief Complaint: (units (unknown) date) Toxicology Problem unknown) (unknown) (no (unknown) (unknown) Clinical (units (unkno wn) date) Impression: unknown) (unknown) (no (unknown) (unknown) Clinical decision (units (unknown) date) rules or scores unknown) evaluated: CIWA of 9 at 1753 (unknown) (no (unknown) (unknown) Complete Blood (units (unknown) date) Count AUTO DIFF unknown) Stat (unknown) (no (unknown) (unknown) Comprehensive (units ( unknown) date) Metabolic Panel unknown) Stat (unknown) (no (unknown) (unknown) Consult to WINDOWS MIGRATION TECHNICIAN - (units (unknown) date) 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 unknown) Stat (unknown) (no (unknown) (unknown) Course of care: (units (unknown) date) Patient is a unknown) difficult IV stick, ordered IV with lab work, (unknown) (no (unknown) (unknown) Course (units (unkno wn) date) unknown) (unknown) (no (unknown) (unknown) : 1990 (units (unknown) date) Acct:[id number] unknown) (unknown) (no (unknown) (unknown) Date of Service: (units (unknown) date) 07/12/22 unknown) (unknown) (no (unknown) (unknown) Departure (units (unkn own) date) unknown) (unknown) (no (unknown) (unknown) Differential (units (u nknown) date) diagnoses include unknown) but are not limited to: Alcohol withdrawal, (unknown) (no (unknown) (unknown) Discharge Plan (units (unknown) date) unknown) (unknown) (no (unknown) (unknown) Discontinued (units (u nknown) date) Medications unknown) (unknown) (no (unknown) (unknown) ECG Data (units (unkno wn) date) unknown) (unknown) (no (unknown) (unknown) ED Orders (units (unkn own) date) unknown) (unknown) (no (unknown) (unknown) EKG independently (units (unknown) date) reviewed by myself unknown) at 1830 reveals normal sinus rhythm at 72 (unknown) (no (unknown) (unknown) EKG-12 Lead Stat (units (unknown) date) unknown) (unknown) (no (unknown) (unknown) ER Physician: (units ( unknown) date) Juliet Paz unknown) LYUDMILA (unknown) (no (unknown) (unknown) Emergency Report (units (unknown) date) unknown) (unknown) (no (unknown) (unknown) Eos # (Auto) (units (u nknown) date) (0-450) /uL unknown) (unknown) (no (unknown) (unknown) Eos # (Auto) 0 (units (unknown) date) (0-450) /uL unknown) (unknown) (no (unknown) (unknown) Eos % (Auto) (2-4) (units (unknown) date) % unknown) (unknown) (no (unknown) (unknown) Eos % (Auto) 0.3 L (units (unknown) date) (2-4) % unknown) (unknown) (no (unknown) (unknown) Esterase (units (unkno wn) date) unknown) (unknown) (no (unknown) (unknown) Ethanol (ETOH) (units (unknown) date) Stat unknown) (unknown) (no (unknown) (unknown) Exam Narrative: (units (unknown) date) unknown) (unknown) (no (unknown) (unknown) Exam (units (unkno wn) date) unknown) (unknown) (no (unknown) (unknown) Family History (units (unknown) date) (Reviewed 07/12/22 unknown) @ 17:50 by LYUDMILA Do) (unknown) (no (unknown) (unknown) Family/Other (units (u nknown) date) Alcoholism unknown) (unknown) (no (unknown) (unknown) Family/Other (units (u nknown) date) Diabetes mellitus unknown) (unknown) (no (unknown) (unknown) Father Alcoholism (units (unknown) date) unknown) (unknown) (no (unknown) (unknown) Tonia Schneider MD (units (unknown) date) [Primary Care unknown) Provider] (unknown) (no (unknown) (unknown) Folic Acid (Folic (units (unknown) date) Acid 1 Mg Tablet) 1 unknown) mg PO DAILY SANDY (unknown) (no (unknown) (unknown) Free T4, Direct (units (unknown) date) Thyroxine Stat unknown) (unknown) (no (unknown) (unknown) GI: abdomen soft, (units (unknown) date) nontender to unknown) palpation, nondistended, without masses, rebound (unknown) (no (unknown) (unknown) General (units (unkno wn) date) unknown) (unknown) (no (unknown) (unknown) General: (units (unkno wn) date) cooperative, unknown) comfortable, in no acute distress, well groomed, appears (unknown) (no (unknown) (unknown) Grandfather (units (un [...] extraction () unknown) (unknown) (no (unknown) (unknown) HEENT: symmetrical (units (unknown) date) facial expressions, unknown) dry mucous membranes (unknown) (no (unknown) (unknown) HPI - Alcohol (units ( unknown) date) unknown) (unknown) (no (unknown) (unknown) HPI narrative: (units (unknown) date) unknown) (unknown) (no (unknown) (unknown) Hct (36-46) % (units ( unknown) date) unknown) (unknown) (no (unknown) (unknown) Hct 35.3 L (36-46) (units (unknown) date) % unknown) (unknown) (no (unknown) (unknown) Headache/fullness (units (unknown) date) in head ?> 1 = Very unknown) mild (unknown) (no (unknown) (unknown) Hgb (12.0-16.0) (units (unknown) date) g/dL unknown) (unknown) (no (unknown) (unknown) Hgb 11.5 L (units (unk nown) date) (12.0-16.0) g/dL unknown) (unknown) (no (unknown) (unknown) History of Present (units (unknown) date) Illness unknown) (unknown) (no (unknown) (unknown) Home Medications (units (unknown) date) unknown) (unknown) (no (unknown) (unknown) I have (units (unkno wn) date) independently unknown) reviewed the patient's vital signs and nursing notes as (unknown) (no (unknown) (unknown) INPUTS: (units (unkno wn) date) unknown) (unknown) (no (unknown) (unknown) Independent (units (un known) date) historian: Patient unknown) (unknown) (no (unknown) (unknown) Initial Vital (units ( unknown) date) Signs unknown) (unknown) (no (unknown) (unknown) Initial Vital (units ( unknown) date) Signs: unknown) (unknown) (no (unknown) (unknown) Insomnia (units (unkno wn) date) unknown) (unknown) (no (unknown) (unknown) Interpretation: (units (unknown) date) unknown) (unknown) (no (unknown) (unknown) [facility] (units (unknown) date) [address] unknown) [place] [address] (unknown) (no (unknown) (unknown) Lab Data (units (unkno wn) date) unknown) (unknown) (no (unknown) (unknown) Lab Results (units (un known) date) unknown) (unknown) (no (unknown) (unknown) Labs: (units (unkno wn) date) unknown) (unknown) (no (unknown) (unknown) Last Admin: (units (un known) date) 07/12/22 18:39 unknown) Dose: 4 mg (unknown) (no (unknown) (unknown) Last Admin: (units (un known) date) 07/12/22 18:40 unknown) Dose: 1 mg (unknown) (no (unknown) (unknown) Last Admin: (units (un known) date) 07/12/22 18:56 unknown) Dose: Not Given (unknown) (no (unknown) (unknown) Lorazepam (units (unkn own) date) (Lorazepam 0.5 Mg unknown) Tablet) 1 mg PO NOW ONE (unknown) (no (unknown) (unknown) Lorazepam (units (unkn own) date) (Lorazepam 0.5 Mg unknown) Tablet) 2 mg PO NOW ONE (unknown) (no (unknown) (unknown) Lorazepam (units (unkn own) date) (Lorazepam 2 Mg/Ml unknown) Inj) 2 mg IV NOW ONE (unknown) (no (unknown) (unknown) Lymph # (Auto) (units (unknown) date) (5727-9579) /uL unknown) (unknown) (no (unknown) (unknown) Lymph # (Auto) (units (unknown) date) 1700 (9190-5042) unknown) /uL (unknown) (no (unknown) (unknown) Lymph % (Auto) (units (unknown) date) (25-40) % unknown) (unknown) (no (unknown) (unknown) Lymph % (Auto) (units (unknown) date) 50.6 H (25-40) % unknown) (unknown) (no (unknown) (unknown) MCH (26-34) PG (units (unknown) date) unknown) (unknown) (no (unknown) (unknown) MCH 26.0 (26-34) (units (unknown) date) PG unknown) (unknown) (no (unknown) (unknown) MCHC (30-36) % (units (unknown) date) unknown) (unknown) (no (unknown) (unknown) MCHC 32.7 (30-36) (units (unknown) date) % unknown) (unknown) (no (unknown) (unknown) MCV (80-100) fL (units (unknown) date) unknown) (unknown) (no (unknown) (unknown) MCV 79.5 L (units (unk nown) date) (80-100) fL unknown) (unknown) (no (unknown) (unknown) MDM - Alcohol (units ( unknown) date) unknown) (unknown) (no (unknown) (unknown) MDM Narrative (units ( unknown) date) unknown) (unknown) (no (unknown) (unknown) MIPS: This (units (unk nown) date) encounter doesn't unknown) have any diagnosis' associated with MIPS criteria. (unknown) (no (unknown) (unknown) MSK: moves all (units (unknown) date) extremities, unknown) neurovascularly intact, no weakness, normal tone no (unknown) (no (unknown) (unknown) Medical History (units (unknown) date) (Reviewed 07/12/22 unknown) @ 17:50 by Juliet Paz [facility]) (unknown) (no (unknown) (unknown) Medical decision (units (unknown) date) making narrative: unknown) (unknown) (no (unknown) (unknown) Medication (units (unk nown) date) Instructions unknown) Recorded Confirmed (unknown) (no (unknown) (unknown) Medication (units (unk nown) date) Instructions unknown) Recorded (unknown) (no (unknown) (unknown) Menometrorrhagia (units (unknown) date) unknown) (unknown) (no (unknown) (unknown) Mode of arrival: (units (unknown) date) Ambulatory unknown) (unknown) (no (unknown) (unknown) Yates # (Auto) (units ( unknown) date) (0-900) /uL unknown) (unknown) (no (unknown) (unknown) Yates # (Auto) 100 (units (unknown) date) (0-900) /uL unknown) (unknown) (no (unknown) (unknown) Yates % (Auto) (units ( unknown) date) (3-14) % unknown) (unknown) (no (unknown) (unknown) Yates % (Auto) 2.7 (units (unknown) date) L (3-14) % unknown) (unknown) (no (unknown) (unknown) Mother Diabetes (units (unknown) date) mellitus unknown) (unknown) (no (unknown) (unknown) Narrative (units (unkn own) date) unknown) (unknown) (no (unknown) (unknown) Nausea/vomiting ?> (units (unknown) date) 0 = No nausea and unknown) no vomiting (unknown) (no (unknown) (unknown) Neuro: normal (units ( unknown) date) speech and unknown) cognition, A+O x3, ambulatory, clear speech (unknown) (no (unknown) (unknown) Neut # (Auto) (units ( unknown) date) (7813-7225) /uL unknown) (unknown) (no (unknown) (unknown) Neut # (Auto) 1500 (units (unknown) date) (2341-7158) /uL unknown) (unknown) (no (unknown) (unknown) Neut % (Auto) (units ( unknown) date) (50-75) % unknown) (unknown) (no (unknown) (unknown) Neut % (Auto) 45.5 (units (unknown) date) L (50-75) % unknown) (unknown) (no (unknown) (unknown) No Action (units (unkn own) date) unknown) (unknown) (no (unknown) (unknown) Obesity (units (unkno wn) date) unknown) (unknown) (no (unknown) (unknown) Ondansetron HCl (units (unknown) date) (Ondansetron 4 Mg unknown) Odt) 4 mg SL NOW ONE (unknown) (no (unknown) (unknown) Ondansetron HCl (units (unknown) date) (Ondansetron 4 Mg/2 unknown) Ml Inj) 4 mg IV Q6HR PRN (unknown) (no (unknown) (unknown) Ordered: (units (unkno wn) date) unknown) (unknown) (no (unknown) (unknown) Orders (units (unkno wn) date) unknown) (unknown) (no (unknown) (unknown) Orientation/cloudi (units (unknown) date) ng of sensorium ?> unknown) 0 = Oriented, can do serial additions (unknown) (no (unknown) (unknown) Overweight (units (unk nown) date) unknown) (unknown) (no (unknown) (unknown) Oxygen Delivery (units (unknown) date) Method Room Air unknown) 07/12/22 16:10 (unknown) (no (unknown) (unknown) Oxygen Delivery (units (unknown) date) Method Room Air unknown) Room Air (unknown) (no (unknown) (unknown) PRN Reason: Nausea (units (unknown) date) And Vomiting unknown) (unknown) (no (unknown) (unknown) Paroxysmal sweats (units (unknown) date) ?> 0 = No sweat unknown) visible (unknown) (no (unknown) (unknown) Patient History (units (unknown) date) unknown) (unknown) (no (unknown) (unknown) Patient: (units (unkno wn) date) Sarah Connors R unknown) MR#: M (unknown) (no (unknown) (unknown) Patients with (units ( unknown) date) scores >= may unknown) require medication for withdrawal. (unknown) (no (unknown) (unknown) Pertinent lab (units ( unknown) date) findings reviewed: unknown) CBC is pertinent for mild leukopenia of 3.3, (unknown) (no (unknown) (unknown) Plt Count (units (unkn own) date) (150-400) X103/uL unknown) (unknown) (no (unknown) (unknown) Plt Count 226 (units ( unknown) date) (150-400) X103/uL unknown) (unknown) (no (unknown) (unknown) Point of Care (units ( unknown) date) Testing unknown) (unknown) (no (unknown) (unknown) Test (units (unknown) date) Results Negative unknown) (unknown) (no (unknown) (unknown) Prescriptions: (units (unknown) date) unknown) (unknown) (no (unknown) (unknown) Previous Rx's (units ( unknown) date) unknown) (unknown) (no (unknown) (unknown) Psych: mental (units ( unknown) date) status is grossly unknown) normal, congruent mood, normal affect, pleasant (unknown) (no (unknown) (unknown) Pulse Oximetry 99 (units (unknown) date) 07/12/22 16:10 unknown) (unknown) (no (unknown) (unknown) Pulse Oximetry 99 (units (unknown) date) 99 unknown) (unknown) (no (unknown) (unknown) Pulse Rate 82 (units ( unknown) date) 07/12/22 16:10 unknown) (unknown) (no (unknown) (unknown) Pulse Rate 82 86 (units (unknown) date) unknown) (unknown) (no (unknown) (unknown) Questions are (units ( unknown) date) addressed and there unknown) is agreement with the plan and for follow-up. (unknown) (no (unknown) (unknown) RBC (4.0-5.2) (units ( unknown) date) X106/uL unknown) (unknown) (no (unknown) (unknown) RBC 4.44 (4.0-5.2) (units (unknown) date) X106/uL unknown) (unknown) (no (unknown) (unknown) RDW (11.6-14.8) % (units (unknown) date) unknown) (unknown) (no (unknown) (unknown) RDW 17.3 H (units (unk nown) date) (11.6-14.8) % unknown) (unknown) (no (unknown) (unknown) RESULT SUMMARY: (units (unknown) date) unknown) (unknown) (no (unknown) (unknown) ROS Unobtainable: (units (unknown) date) All systems unknown) reviewed + are unremarkable except as noted in HPI (unknown) (no (unknown) (unknown) Referrals: (units (unk nown) date) unknown) (unknown) (no (unknown) (unknown) Related Data (units (u nknown) date) unknown) (unknown) (no (unknown) (unknown) Respiratory Rate (units (unknown) date) 14 07/12/22 16:10 unknown) (unknown) (no (unknown) (unknown) Respiratory Rate (units (unknown) date) 14 22 unknown) (unknown) (no (unknown) (unknown) Respiratory: (units (u nknown) date) normal effort, able unknown) to speak in complete sentences, without (unknown) (no (unknown) (unknown) Review of Systems (units (unknown) date) unknown) (unknown) (no (unknown) (unknown) Reviewed vitals (units (unknown) date) signs and nursing unknown) notes. (unknown) (no (unknown) (unknown) S/P myringotomy (units (unknown) date) with insertion of unknown) tube (unknown) (no (unknown) (unknown) SARS-CoV-2 (PCR) (units (unknown) date) (Negative) unknown) (unknown) (no (unknown) (unknown) SARS-CoV-2 (PCR) (units (unknown) date) Negative (Negative) unknown) (unknown) (no (unknown) (unknown) (spontaneous (units (unknown) date) vaginal delivery) unknown) (-09/05/18) (unknown) (no (unknown) (unknown) Salicylate Stat (units (unknown) date) unknown) (unknown) (no (unknown) (unknown) She was given a (units (unknown) date) couple water, a unknown) diet order was ordered however they may not (unknown) (no (unknown) (unknown) Signed By: (units (unk nown) date) unknown) (unknown) (no (unknown) (unknown) Skin: brisk (units (un known) date) capillary refill, unknown) without pallor or erythema (unknown) (no (unknown) (unknown) Smoker (units (unkno wn) date) unknown) (unknown) (no (unknown) (unknown) Smoking Status: (units (unknown) date) Former smoker unknown) (unknown) (no (unknown) (unknown) Social History (units (unknown) date) (Reviewed 07/12/22 unknown) @ 17:50 by Juliet Paz [facility]) (unknown) (no (unknown) (unknown) Social (units (unkno wn) date) considerations that unknown) may affect disposition: none (unknown) (no (unknown) (unknown) Sodium Chloride (units (unknown) date) (Normal Saline unknown) 0.9%) 1,000 mls @ 1,000 mls/hr IV BOLUS ONE (unknown) (no (unknown) (unknown) Source: patient (units (unknown) date) unknown) (unknown) (no (unknown) (unknown) Stated Complaint: (units (unknown) date) Stress/Depression unknown) (unknown) (no (unknown) (unknown) Stop: 07/12/22 (units (unknown) date) 17:33 unknown) (unknown) (no (unknown) (unknown) Stop: 07/12/22 (units (unknown) date) 17:45 unknown) (unknown) (no (unknown) (unknown) Stop: 07/12/22 (units (unknown) date) 18:28 unknown) (unknown) (no (unknown) (unknown) Stop: 07/12/22 (units (unknown) date) 18:31 unknown) (unknown) (no (unknown) (unknown) Stop: 07/12/22 (units (unknown) date) 19:25 unknown) (unknown) (no (unknown) (unknown) Substance Use (units ( unknown) date) Type: does not use unknown) (unknown) (no (unknown) (unknown) Surgical History (units (unknown) date) (Reviewed 07/12/22 unknown) @ 17:50 by Juliet Paz [facility]) (unknown) (no (unknown) (unknown) Tactile (units (unkno wn) date) disturbances ?> 1 = unknown) Very mild itching, pin and needles, burning, or (unknown) (no (unknown) (unknown) Temperature 97.2 F (units (unknown) date) L 07/12/22 16:10 unknown) (unknown) (no (unknown) (unknown) Temperature 97.2 F (units (unknown) date) L unknown) (unknown) (no (unknown) (unknown) Thiamine HCl (units (u nknown) date) (Thiamine 100 Mg unknown) Tablet) 100 mg PO NOW ONE (unknown) (no (unknown) (unknown) Thiamine HCl 200 (units (unknown) date) mg/ Sodium unknown) (Chloride) 102 mls @ 408 mls/hr IV NOW ONE (unknown) (no (unknown) (unknown) This is a (units (unkn own) date) 31-year-old female unknown) with history of alcohol abuse and appears to have (unknown) (no (unknown) (unknown) Thyroid (units (unkno wn) date) Stimulating Hormone unknown) Stat (unknown) (no (unknown) (unknown) Time Seen by (units (u nknown) date) Provider: 07/12/22 unknown) 17:05 (unknown) (no (unknown) (unknown) Tremor ?> 1 = Not (units (unknown) date) visible, but can be unknown) felt fingertip to fingertip (unknown) (no (unknown) (unknown) U Benzodiazepines (units (unknown) date) Scrn (Negative) unknown) (unknown) (no (unknown) (unknown) U Benzodiazepines (units (unknown) date) Scrn Negative unknown) (Negative) (unknown) (no (unknown) (unknown) U Marijuana (THC) (units (unknown) date) Screen (Negative) unknown) (unknown) (no (unknown) (unknown) U Marijuana (THC) (units (unknown) date) Screen Negative unknown) (Negative) (unknown) (no (unknown) (unknown) U Methamphetamines (units (unknown) date) Scrn (Negative) unknown) (unknown) (no (unknown) (unknown) U Methamphetamines (units (unknown) date) Scrn Negative unknown) (Negative) (unknown) (no (unknown) (unknown) U Opiates 300ng/mL (units (unknown) date) cut (Negative) unknown) (unknown) (no (unknown) (unknown) U Opiates 300ng/mL (units (unknown) date) cut Negative unknown) (Negative) (unknown) (no (unknown) (unknown) U Tricyclic (units (un known) date) Antidepress unknown) (Negative) (unknown) (no (unknown) (unknown) U Tricyclic (units (un known) date) Antidepress unknown) Negative (Negative) (unknown) (no (unknown) (unknown) Ur Amphetamines (units (unknown) date) Screen (Negative) unknown) (unknown) (no (unknown) (unknown) Ur Amphetamines (units (unknown) date) Screen Negative unknown) (Negative) (unknown) (no (unknown) (unknown) Ur Barbiturates (units (unknown) date) Screen (Negative) unknown) (unknown) (no (unknown) (unknown) Ur Barbiturates (units (unknown) date) Screen Negative unknown) (Negative) (unknown) (no (unknown) (unknown) Ur Culture (units (unk nown) date) Indicated? Specimen unknown) cultured (unknown) (no (unknown) (unknown) Ur Culture (units (unk nown) date) Indicated? unknown) (unknown) (no (unknown) (unknown) Ur MDMA Scrn (units (u nknown) date) (Ecstasy) unknown) (Negative) (unknown) (no (unknown) (unknown) Ur MDMA Scrn (units (u nknown) date) (Ecstasy) Negative unknown) (Negative) (unknown) (no (unknown) (unknown) Ur Oxycodone (units (u nknown) date) Screen (Negative) unknown) (unknown) (no (unknown) (unknown) Ur Oxycodone (units (u nknown) date) Screen Negative unknown) (Negative) (unknown) (no (unknown) (unknown) Ur Phencyclidine (units (unknown) date) Scrn (Negative) unknown) (unknown) (no (unknown) (unknown) Ur Phencyclidine (units (unknown) date) Scrn Negative unknown) (Negative) (unknown) (no (unknown) (unknown) Ur Squamous Epith (units (unknown) date) Cells (0-5/HPF) unknown) (unknown) (no (unknown) (unknown) Ur Squamous Epith (units (unknown) date) Cells 1-5 /hpf unknown) (0-5/HPF) (unknown) (no (unknown) (unknown) Urine Bacteria (units (unknown) date) (None) unknown) (unknown) (no (unknown) (unknown) Urine Bacteria (units (unknown) date) Many (>30) H (None) unknown) (unknown) (no (unknown) (unknown) Urine Cocaine (units ( unknown) date) Screen (Negative) unknown) (unknown) (no (unknown) (unknown) Urine Cocaine (units ( unknown) date) Screen Negative unknown) (Negative) (unknown) (no (unknown) (unknown) Urine Culture Stat (units (unknown) date) unknown) (unknown) (no (unknown) (unknown) Urine Dip (units (unkn own) date) unknown) (unknown) (no (unknown) (unknown) Urine Drug Screen, (units (unknown) date) Rapid Stat unknown) (unknown) (no (unknown) (unknown) Urine Methadone (units (unknown) date) Screen (Negative) unknown) (unknown) (no (unknown) (unknown) Urine Methadone (units (unknown) date) Screen Negative unknown) (Negative) (unknown) (no (unknown) (unknown) Urine Microscopic (units (unknown) date) Stat unknown) (unknown) (no (unknown) (unknown) Urine RBC (units (unkn own) date) (0-5/HPF) unknown) (unknown) (no (unknown) (unknown) Urine RBC 1-5/hpf (units (unknown) date) (0-5/HPF) unknown) (unknown) (no (unknown) (unknown) Urine Specific (units (unknown) date) [place] 1.015 unknown) (unknown) (no (unknown) (unknown) Urine WBC (units (unkn own) date) (0-5/HPF) unknown) (unknown) (no (unknown) (unknown) Urine WBC 1-5/hpf (units (unknown) date) (0-5/HPF) unknown) (unknown) (no (unknown) (unknown) Urine microscopy (units (unknown) date) with many bacteria, unknown) pending for culture, will treat for acute (unknown) (no (unknown) (unknown) Visual (units (unkno wn) date) disturbances ?> 1 = unknown) Very mild sensitivity (unknown) (no (unknown) (unknown) Vital Signs - 8 hr (units (unknown) date) unknown) (unknown) (no (unknown) (unknown) Vital Signs (units (un known) date) unknown) (unknown) (no (unknown) (unknown) Vital signs: (units (u nknown) date) unknown) (unknown) (no (unknown) (unknown) WBC (4.5-11.0) (units (unknown) date) X103/uL unknown) (unknown) (no (unknown) (unknown) WBC 3.3 L (units (unkn own) date) (4.5-11.0) X103/uL [...] unknown) tablet (unknown) (no (unknown) (unknown) alcohol in 300s, (units (unknown) date) she was last here unknown) in the emergency department in May of (unknown) (no (unknown) (unknown) alcohol intake (units (unknown) date) frequency: 3 or unknown) more drinks per day (unknown) (no (unknown) (unknown) alcohol intake: (units (unknown) date) former unknown) (unknown) (no (unknown) (unknown) and below (units (unkn own) date) unknown) (unknown) (no (unknown) (unknown) and cooperative (units (unknown) date) unknown) (unknown) (no (unknown) (unknown) arrhythmia, or (units (unknown) date) acute ischemic unknown) changes. (unknown) (no (unknown) (unknown) at extension and (units (unknown) date) states that she unknown) feels symptoms of alcohol withdrawal. Denies (unknown) (no (unknown) (unknown) bpm with rightward (units (unknown) date) axis and normal unknown) intervals. No STEMI, ST segment changes, (unknown) (no (unknown) (unknown) current (units (unkno wn) date) occupational unknown) exposures/hazards: Yes (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 with Pandemic ) (unknown) (no (unknown) (unknown) cystitis (units (unkno wn) date) unknown) (unknown) (no (unknown) (unknown) cystitis, she is (units (unknown) date) p.o. tolerant, unknown) still pending lab work (unknown) (no (unknown) (unknown) deliver since it (units (unknown) date) is after 17:00 and unknown) the diet order was ordered at 17:30. Samira (unknown) (no (unknown) (unknown) detox as well. (units (unknown) date) unknown) (unknown) (no (unknown) (unknown) diarrhea or (units (un known) date) current stool unknown) changes. (unknown) (no (unknown) (unknown) diphenhydramine (units (unknown) [...] mg unknown) capsule (unknown) (no (unknown) (unknown) draw her labs (units ( unknown) date) unknown) (unknown) (no (unknown) (unknown) education level: (units (unknown) date) college unknown) (unknown) (no (unknown) (unknown) emergency (units (unkn own) date) department on unknown) 06/18/2022 and a few days prior to that with a blood (unknown) (no (unknown) (unknown) renee/zoroastrianism: (units (unknown) date) Buddhist unknown) (unknown) (no (unknown) (unknown) fluid, EtOH, and (units (unknown) date) CIWA, ordered 2 mg unknown) of IV lorazepam for patient's symptoms, (unknown) (no (unknown) (unknown) for alcohol (units (un known) date) related complaints unknown) through 2019, and she presented to the [facility] (unknown) (no (unknown) (unknown) from social work (units (unknown) date) is aware and unknown) pending her lab work to arrange for inpatient (unknown) (no (unknown) (unknown) her urine (units (unkn own) date) microscopy came unknown) back positive for many bacteria, will treat for acute (unknown) (no (unknown) (unknown) household members: (units (unknown) date) spouse and children unknown) (unknown) (no (unknown) (unknown) hydrocodone (units (un known) date) [HYDROCODONE] unknown) AdvReac Unknown VOMITING Verified 07/12/22 16:18 (unknown) (no (unknown) (unknown) ibuprofen 600 mg (units (unknown) date) Tablet unknown) (unknown) (no (unknown) (unknown) ibuprofen 600 mg (units (unknown) date) tablet 600 mg PO unknown) Q6HR PRN Pain, Mild 07/04/20 (unknown) (no (unknown) (unknown) injuries, denies (units (unknown) date) chance of unknown) , denies any other ingestions, is pleasant, (unknown) (no (unknown) (unknown) intoxicated, (units (un known) date) pleasant, unknown) interactive and comfortable although active and fidgeting (unknown) (no (unknown) (unknown) limited history (units (unknown) date) currently due to unknown) intoxication. She states that she is recently (unknown) (no (unknown) (unknown) lorazepam at 2 mg (units (unknown) date) for this. unknown) (unknown) (no (unknown) (unknown) marital status: (units (unknown) date) unknown) (unknown) (no (unknown) (unknown) metoclopramide (units (unknown) date) Allergy Mild unknown) RASH/HIVES Verified 07/12/22 16:18 (unknown) (no (unknown) (unknown) mild anemia but (units (unknown) date) improved from her unknown) prior with H+H of 11.5 and 35.3, no evidence (unknown) (no (unknown) (unknown) nausea vomiting or (units (unknown) date) abdominal pain at unknown) this time. Denies any vomiting home or (unknown) (no (unknown) (unknown) number of (units (unkn own) date) children: 1 unknown) (unknown) (no (unknown) (unknown) numbness (units (unkno wn) date) unknown) (unknown) (no (unknown) (unknown) occupational (units (u nknown) date) status: employed unknown) (unknown) (no (unknown) (unknown) of bleeding (units (un known) date) anywhere, CMP unknown) (unknown) (no (unknown) (unknown) ondansetron 4 [...] tablet,disintegrati unknown) ng (unknown) (no (unknown) (unknown) ordered p.o. (units (u nknown) date) Ativan for her unknown) symptoms and ask our into call lab to come up and (unknown) (no (unknown) (unknown) prenat.vits,otis,mi (units (unknown) date) [id number] 1 tab unknown) PO DAILY 12/30/19 07/03/20 (unknown) (no (unknown) (unknown) prenat.vits,otis,mi (units (unknown) date) [id number] Tablet unknown) (unknown) (no (unknown) (unknown) relapsed due to a (units (unknown) date) divorce with her unknown) . 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 (unknown) (no (unknown) (unknown) significant tremor (units (unknown) date) or tongue unknown) fasciculation, she has a mild tremor with her arms (unknown) (no (unknown) (unknown) social work and (units (unknown) date) orders are pending unknown) (unknown) (no (unknown) (unknown) special renee (units ( unknown) date) needs: No unknown) (unknown) (no (unknown) (unknown) substance abuse, (units (unknown) date) alcohol unknown) intoxication, psychosis, mood disorder, depression (unknown) (no (unknown) (unknown) substance use (units ( unknown) date) type: does not use unknown) (unknown) (no (unknown) (unknown) tablet vomiting (units (unknown) date) #14 tabs unknown) (unknown) (no (unknown) (unknown) tablet vomiting (units (unknown) date) #20 tabs unknown) (unknown) (no (unknown) (unknown) tablet vomiting (units (unknown) date) #30 tabs unknown) (unknown) (no (unknown) (unknown) tenderness or (units ( unknown) date) exquisite unknown) tenderness with exam. (unknown) (no (unknown) (unknown) that she drinks (units (unknown) date) vodka and admits to unknown) drinking heavily today, states that she took (unknown) (no (unknown) (unknown) the bottle upside (units (unknown) date) down and started unknown) checking from it. She denies any recent (unknown) (no (unknown) (unknown) tramadol 50 mg (units (unknown) date) tablet 50 mg PO Q6H unknown) PRN pain #10 tabs 06/12/22 (unknown) (no (unknown) (unknown) tramadol 50 mg (units (unknown) date) tablet unknown) (unknown) (no (unknown) (unknown) tremors, no (units (un known) date) tachycardia, her unknown) CIWA is currently 10, ordered another p.o. dose of (unknown) (no (unknown) (unknown) well as prior (units ( unknown) date) records if unknown) available. (unknown) (no (unknown) (unknown) wheezing, stridor, (units (unknown) date) or abnormal breath unknown) sounds. No retractions or tachypnea. Result panel [id number] (unknown) (no date) (unknown) (unknown) > 60 ml/min (unkn own) (unknown) (no date) (unknown) (unknown) > 60 ml/min (unkn own) (unknown) (no date) (unknown) (unknown) < 1.0 mg/dl (unkn own) (unknown) (no date) (unknown) (unknown) < 1.0 mg/dl (unkn own) (unknown) (no date) (unknown) (unknown) < 10 ug/ml (unkn own) (unknown) (no date) (unknown) (unknown) < 10 ug/ml (unkn own) (unknown) (no date) (unknown) (unknown) 0.4 mg/dl (unkn own) (unknown) (no date) (unknown) (unknown) 0.82 mg/dl (unkn own) (unknown) (no date) (unknown) (unknown) 1.4 (units unknown) (unknown) (unknown) (no date) (unknown) (unknown) 104 mmol/l (unkn own) (unknown) (no date) (unknown) (unknown) 11.0 (units unknown) (unknown) (unknown) (no date) (unknown) (unknown) 111 mg/dl (unkn own) (unknown) (no date) (unknown) (unknown) 111 mg/dl (unkn own) (unknown) (no date) (unknown) (unknown) 140 mmol/l (unkn own) (unknown) (no date) (unknown) (unknown) 21 iu/l (unkn own) (unknown) (no date) (unknown) (unknown) 23 mmol/l (unkn own) (unknown) (no date) (unknown) (unknown) 3.0 g/dl (unkn own) (unknown) (no date) (unknown) (unknown) 3.9 mmol/l (unkn own) (unknown) (no date) (unknown) (unknown) 338 mg/dl (unkn own) (unknown) (no date) (unknown) (unknown) 338 mg/dl (unkn own) (unknown) (no date) (unknown) (unknown) 4.3 g/dl (unkn own) (unknown) (no date) (unknown) (unknown) 67 iu/l (unkn own) (unknown) (no date) (unknown) (unknown) 7.3 g/dl (unkn own) (unknown) (no date) (unknown) (unknown) 8.0 mg/dl (unkn own) (unknown) (no date) (unknown) (unknown) 9 mg/dl (unkn own) (unknown) (no date) (unknown) (unknown) 98 u/l (unkn own) Result panel [id number] (unknown) (no (unknown) (unknown) (no value) (units (unk nown) date) unknown) (unknown) (no (unknown) (unknown) (1-3) #30 tabs (units (unknown) date) unknown) (unknown) (no (unknown) (unknown) (Benadryl) caps (units (unknown) date) unknown) (unknown) (no (unknown) (unknown) (Colace) (units (unkno wn) date) unknown) (unknown) (no (unknown) (unknown) (Tylenol) (units (unkn own) date) unknown) (unknown) (no (unknown) (unknown) [id number] (units (unkn own) date) unknown) (unknown) (no (unknown) (unknown) 07/12/22 07/12/22 (units (unknown) date) 07/12/22 unknown) Range/Units (unknown) (no (unknown) (unknown) 07/12/22 07/12/22 (units (unknown) date) Range/Units unknown) (unknown) (no (unknown) (unknown) 07/12/22 16:28 (units (unknown) date) unknown) (unknown) (no (unknown) (unknown) 07/12/22 16:32 (units (unknown) date) unknown) (unknown) (no (unknown) (unknown) 07/12/22 18:28 (units (unknown) date) unknown) (unknown) (no (unknown) (unknown) 07/12/22 19:15 (units (unknown) date) unknown) (unknown) (no (unknown) (unknown) 07/12/22 (units (unkno wn) date) unknown) (unknown) (no (unknown) (unknown) 1 tab PO DAILY (units (unknown) date) unknown) (unknown) (no (unknown) (unknown) 100 mg PO BID Qty: (units (unknown) date) 30 0RF unknown) (unknown) (no (unknown) (unknown) 16:10 07/12/22 (units (unknown) date) unknown) (unknown) (no (unknown) (unknown) 16:32 16:32 16:32 (units (unknown) date) unknown) (unknown) (no (unknown) (unknown) 1835 patient still (units (unknown) date) does not have an unknown) IV, has not received any IV fluid her (unknown) (no (unknown) (unknown) 18:53 (units (unkno wn) date) unknown) (unknown) (no (unknown) (unknown) 1899 still no IV, (units (unknown) date) patient is p.o. unknown) challenging, she received her p.o. lorazepam, (unknown) (no (unknown) (unknown) 1929, patient now (units (unknown) date) feels depressed, unknown) she is lying in bed, feeling bad, has (unknown) (no (unknown) (unknown) 19:15 19:15 (units (un known) date) unknown) (unknown) (no (unknown) (unknown) 2022 with similar (units (unknown) date) symptoms. She comes unknown) in complaining of needing help, states (unknown) (no (unknown) (unknown) 25 mg PO [...] Qty: 30 0RF (unknown) (no (unknown) (unknown) 9 points (units (unkno wn) date) unknown) (unknown) (no (unknown) (unknown) ALT (<35) IU/L (units (unknown) date) unknown) (unknown) (no (unknown) (unknown) ALT 21 (<35) IU/L (units (unknown) date) unknown) (unknown) (no (unknown) (unknown) AST (14-36) IU/L (units (unknown) date) unknown) (unknown) (no (unknown) (unknown) AST 67 H (14-36) (units (unknown) date) IU/L unknown) (unknown) (no (unknown) (unknown) Acetaminophen < 10 (units (unknown) date) (10-30) ug/mL unknown) (unknown) (no (unknown) (unknown) Acetaminophen (units ( unknown) date) (10-30) ug/mL unknown) (unknown) (no (unknown) (unknown) Acetaminophen Stat (units (unknown) date) unknown) (unknown) (no (unknown) (unknown) Acute cystitis (units (unknown) date) unknown) (unknown) (no (unknown) (unknown) Age/Sex: 31 / F (units (unknown) date) unknown) (unknown) (no (unknown) (unknown) Agitation ?> 2 = (units (unknown) date) (More severe unknown) symptoms) (unknown) (no (unknown) (unknown) Albumin (3.5-5.0) (units (unknown) date) g/dL unknown) (unknown) (no (unknown) (unknown) Albumin 4.3 (units (un known) date) (3.5-5.0) g/dL unknown) (unknown) (no (unknown) (unknown) Albumin/Globulin (units (unknown) date) Ratio (1.0-2.8) unknown) (unknown) (no (unknown) (unknown) Albumin/Globulin (units (unknown) date) Ratio 1.4 (1.0-2.8) unknown) (unknown) (no (unknown) (unknown) Alcohol use (units (un known) date) disorder unknown) (unknown) (no (unknown) (unknown) Alcoholism (units (unk nown) date) unknown) (unknown) (no (unknown) (unknown) Alkaline (units (unkno wn) date) Phosphatase unknown) (38-126) U/L (unknown) (no (unknown) (unknown) Alkaline (units (unkno wn) date) Phosphatase 98 unknown) (38-126) U/L (unknown) (no (unknown) (unknown) Allergies (units (unkn own) date) unknown) (unknown) (no (unknown) (unknown) Allergy/AdvReac (units (unknown) date) Type Severity unknown) Reaction Status Date / Time (unknown) (no (unknown) (unknown) Anemia (-2018) (units (unknown) date) unknown) (unknown) (no (unknown) (unknown) Anxiety ?> 2 = (units (unknown) date) (More severe unknown) symptoms) (unknown) (no (unknown) (unknown) Auditory (units (unkno wn) date) disturbances ?> 1 = unknown) Very mild harshness or ability to frighten (unknown) (no (unknown) (unknown) BUN (7-17) mg/dL (units (unknown) date) unknown) (unknown) (no (unknown) (unknown) BUN 9 (7-17) mg/dL (units (unknown) date) unknown) (unknown) (no (unknown) (unknown) BUN/Creatinine (units (unknown) date) Ratio (6-22) unknown) (unknown) (no (unknown) (unknown) BUN/Creatinine (units (unknown) date) Ratio 11.0 (6-22) unknown) (unknown) (no (unknown) (unknown) Baso # (Auto) (units ( unknown) date) (0-100) /uL unknown) (unknown) (no (unknown) (unknown) Baso # (Auto) 0 (units (unknown) date) (0-100) /uL unknown) (unknown) (no (unknown) (unknown) Baso % (Auto) (units ( unknown) date) (0-2) % unknown) (unknown) (no (unknown) (unknown) Baso % (Auto) 0.9 (units (unknown) date) (0-2) % unknown) (unknown) (no (unknown) (unknown) Bedside Urine (units ( unknown) date) Bilirubin - unknown) Negative (unknown) (no (unknown) (unknown) Bedside Urine (units ( unknown) date) Glucose Negative unknown) (unknown) (no (unknown) (unknown) Bedside Urine (units ( unknown) date) Ketone - Negative unknown) (unknown) (no (unknown) (unknown) Bedside Urine (units ( unknown) date) Leukocytes - unknown) Negative (unknown) (no (unknown) (unknown) Bedside Urine (units ( unknown) date) Nitrite + Positive unknown) (unknown) (no (unknown) (unknown) Bedside Urine (units ( unknown) date) Occult Blood - unknown) Negative (unknown) (no (unknown) (unknown) Bedside Urine (units ( unknown) date) Protein - Negative unknown) (unknown) (no (unknown) (unknown) Bedside Urine (units ( unknown) date) Urobilinogen - unknown) Negative (unknown) (no (unknown) (unknown) Bedside Urine pH (units (unknown) date) 6.0 unknown) (unknown) (no (unknown) (unknown) Blood Pressure (units (unknown) date) 112/62 07/12/22 unknown) 16:10 (unknown) (no (unknown) (unknown) Blood Pressure (units (unknown) date) unknown) (unknown) (no (unknown) (unknown) Blood Pressure (units (unknown) date) [Left Arm] 100/59 L unknown) (unknown) (no (unknown) (unknown) CIWA is now worse (units (unknown) date) and she has unknown) tremors, anxiety is worsening and agitation, (unknown) (no (unknown) (unknown) CIWA-Ar for (units (un known) date) Alcohol Withdrawal unknown) from [facility] on 07/12/2022 (unknown) (no (unknown) (unknown) COVID19 -Nasal (units (unknown) date) RAPID/Pre-Proc Stat unknown) (unknown) (no (unknown) (unknown) Calcium (8.4-10.2) (units (unknown) date) mg/dL unknown) (unknown) (no (unknown) (unknown) Calcium 8.0 L (units ( unknown) date) (8.4-10.2) mg/dL unknown) (unknown) (no (unknown) (unknown) Carbon Dioxide (units (unknown) date) (22-32) mmol/L unknown) (unknown) (no (unknown) (unknown) Carbon Dioxide 23 (units (unknown) date) (22-32) mmol/L unknown) (unknown) (no (unknown) (unknown) Cardiovascular: (units (unknown) date) regular rate and unknown) rhythm, no peripheral edema, warm extremities (unknown) (no (unknown) (unknown) Cephalexin HCl (units (unknown) date) (Cephalexin 250 Mg unknown) Capsule) 500 mg PO Q6H SANDY (unknown) (no (unknown) (unknown) Chief Complaint: (units (unknown) date) Alcohol unknown) intoxication, seeking detox (unknown) (no (unknown) (unknown) Chief Complaint: (units (unknown) date) Toxicology Problem unknown) (unknown) (no (unknown) (unknown) Chloride (98-107) (units (unknown) date) mmol/L unknown) (unknown) (no (unknown) (unknown) Chloride 104 (units (u nknown) date) (98-107) mmol/L unknown) (unknown) (no (unknown) (unknown) Clinical (units (unkno wn) date) Impression: unknown) (unknown) (no (unknown) (unknown) Clinical decision (units (unknown) date) rules or scores unknown) evaluated: CIWA of 9 at 1753 (unknown) (no (unknown) (unknown) Complete Blood (units (unknown) date) Count AUTO DIFF unknown) Stat (unknown) (no (unknown) (unknown) Comprehensive (units ( unknown) date) Metabolic Panel unknown) Stat (unknown) (no (unknown) (unknown) Consult to [facility] - (units (unknown) date) 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 unknown) Stat (unknown) (no (unknown) (unknown) Course of care: (units (unknown) date) Patient is a unknown) difficult IV stick, ordered IV with lab work, (unknown) (no (unknown) (unknown) Course (units (unkno wn) date) unknown) (unknown) (no (unknown) (unknown) Creatinine (units (unk nown) date) (0.52-1.04) mg/dL unknown) (unknown) (no (unknown) (unknown) Creatinine 0.82 (units (unknown) date) (0.52-1.04) mg/dL unknown) (unknown) (no (unknown) (unknown) : 1990 (units (unknown) date) Acct:[id number] unknown) (unknown) (no (unknown) (unknown) Date of Service: (units (unknown) date) 07/12/22 unknown) (unknown) (no (unknown) (unknown) Departure (units (unkn own) date) unknown) (unknown) (no (unknown) (unknown) Differential (units (u nknown) date) diagnoses include unknown) but are not limited to: Alcohol withdrawal, (unknown) (no (unknown) (unknown) Discharge Plan (units (unknown) date) unknown) (unknown) (no (unknown) (unknown) Discontinued (units (u nknown) date) Medications unknown) (unknown) (no (unknown) (unknown) Documented By: KB (units (unknown) date) unknown) (unknown) (no (unknown) (unknown) Documented By: OW (units (unknown) date) unknown) (unknown) (no (unknown) (unknown) ECG Data (units (unkno wn) date) unknown) (unknown) (no (unknown) (unknown) ED Orders (units (unkn own) date) unknown) (unknown) (no (unknown) (unknown) EKG independently (units (unknown) date) reviewed by myself unknown) at 1830 reveals normal sinus rhythm at 72 (unknown) (no (unknown) (unknown) EKG-12 Lead Stat (units (unknown) date) unknown) (unknown) (no (unknown) (unknown) ER Physician: (units ( unknown) date) Juliet Paz unknown) RECREATION PROGRAMMER (unknown) (no (unknown) (unknown) Emergency Report (units (unknown) date) unknown) (unknown) (no (unknown) (unknown) Eos # (Auto) (units (u nknown) date) (0-450) /uL unknown) (unknown) (no (unknown) (unknown) Eos # (Auto) 0 (units (unknown) date) (0-450) /uL unknown) (unknown) (no (unknown) (unknown) Eos % (Auto) (2-4) (units (unknown) date) % unknown) (unknown) (no (unknown) (unknown) Eos % (Auto) 0.3 L (units (unknown) date) (2-4) % unknown) (unknown) (no (unknown) (unknown) Esterase (units (unkno wn) date) unknown) (unknown) (no (unknown) (unknown) Estimated GFR > 60 (units (unknown) date) (>60) mL/min unknown) (unknown) (no (unknown) (unknown) Estimated GFR (units ( unknown) date) (>60) mL/min unknown) (unknown) (no (unknown) (unknown) Ethanol (ETOH) (units (unknown) date) Stat unknown) (unknown) (no (unknown) (unknown) Ethyl Alcohol ( - (units (unknown) date) 10) mg/dL unknown) (unknown) (no (unknown) (unknown) Ethyl Alcohol 338 (units (unknown) date) H ( - 10) mg/dL unknown) (unknown) (no (unknown) (unknown) Exam Narrative: (units (unknown) date) unknown) (unknown) (no (unknown) (unknown) Exam (units (unkno wn) date) unknown) (unknown) (no (unknown) (unknown) Family History (units (unknown) date) (Reviewed 07/12/22 unknown) @ 17:50 by LYUDMILA Do) (unknown) (no (unknown) (unknown) Family/Other (units (u nknown) date) Alcoholism unknown) (unknown) (no (unknown) (unknown) Family/Other (units (u nknown) date) Diabetes mellitus unknown) (unknown) (no (unknown) (unknown) Father Alcoholism (units (unknown) date) unknown) (unknown) (no (unknown) (unknown) Tonia Schneider MD (units (unknown) date) [Primary Care unknown) Provider] (unknown) (no (unknown) (unknown) Folic Acid (Folic (units (unknown) date) Acid 1 Mg Tablet) 1 unknown) mg PO DAILY SANDY (unknown) (no (unknown) (unknown) Free T4, Direct (units (unknown) date) Thyroxine Stat unknown) (unknown) (no (unknown) (unknown) GI: abdomen soft, (units (unknown) date) nontender to unknown) palpation, nondistended, without masses, rebound (unknown) (no (unknown) (unknown) General (units (unkno wn) date) unknown) (unknown) (no (unknown) (unknown) General: (units (unkno wn) date) cooperative, unknown) comfortable, in no acute distress, well groomed, appears (unknown) (no (unknown) (unknown) Globulin (1.7-4.1) (units (unknown) date) g/dL unknown) (unknown) (no (unknown) (unknown) Globulin 3.0 (units (u nknown) date) (1.7-4.1) g/dL unknown) (unknown) (no (unknown) (unknown) Glucose (70-100) (units (unknown) date) mg/dL unknown) (unknown) (no (unknown) (unknown) Glucose 111 H (units ( unknown) date) (70-100) mg/dL [...] extraction () unknown) (unknown) (no (unknown) (unknown) HEENT: symmetrical (units (unknown) date) facial expressions, unknown) dry mucous membranes (unknown) (no (unknown) (unknown) HPI - Alcohol (units ( unknown) date) unknown) (unknown) (no (unknown) (unknown) HPI narrative: (units (unknown) date) unknown) (unknown) (no (unknown) (unknown) Hct (36-46) % (units ( unknown) date) unknown) (unknown) (no (unknown) (unknown) Hct 35.3 L (36-46) (units (unknown) date) % unknown) (unknown) (no (unknown) (unknown) Headache/fullness (units (unknown) date) in head ?> 1 = Very unknown) mild (unknown) (no (unknown) (unknown) Hematuria (units (unkn own) date) presence: without unknown) hematuria Qualified Code(s): N30.00 - Acute (unknown) (no (unknown) (unknown) Hgb (12.0-16.0) (units (unknown) date) g/dL unknown) (unknown) (no (unknown) (unknown) Hgb 11.5 L (units (unk nown) date) (12.0-16.0) g/dL unknown) (unknown) (no (unknown) (unknown) History of Present (units (unknown) date) Illness unknown) (unknown) (no (unknown) (unknown) Home Medications (units (unknown) date) unknown) (unknown) (no (unknown) (unknown) I have (units (unkno wn) date) independently unknown) reviewed the patient's vital signs and nursing notes as (unknown) (no (unknown) (unknown) INPUTS: (units (unkno wn) date) unknown) (unknown) (no (unknown) (unknown) Independent (units (un known) date) historian: Patient unknown) (unknown) (no (unknown) (unknown) Initial Vital (units ( unknown) date) Signs unknown) (unknown) (no (unknown) (unknown) Initial Vital (units ( unknown) date) Signs: unknown) (unknown) (no (unknown) (unknown) Insomnia (units (unkno wn) date) unknown) (unknown) (no (unknown) (unknown) Interpretation: (units (unknown) date) unknown) (unknown) (no (unknown) (unknown) [facility] (units (unknown) date) [address] unknown) [place] [address] (unknown) (no (unknown) (unknown) Lab Data (units (unkno wn) date) unknown) (unknown) (no (unknown) (unknown) Lab Results (units (un known) date) unknown) (unknown) (no (unknown) (unknown) Labs: (units (unkno wn) date) unknown) (unknown) (no (unknown) (unknown) Last Admin: (units (un known) date) 07/12/22 18:39 unknown) Dose: 4 mg (unknown) (no (unknown) (unknown) Last Admin: (units (un known) date) 07/12/22 18:40 unknown) Dose: 1 mg (unknown) (no (unknown) (unknown) Last Admin: (units (un known) date) 07/12/22 18:56 unknown) Dose: Not Given (unknown) (no (unknown) (unknown) Lorazepam (units (unkn own) date) (Lorazepam 0.5 Mg unknown) Tablet) 1 mg PO NOW ONE (unknown) (no (unknown) (unknown) Lorazepam (units (unkn own) date) (Lorazepam 0.5 Mg unknown) Tablet) 2 mg PO NOW ONE (unknown) (no (unknown) (unknown) Lorazepam (units (unkn own) date) (Lorazepam 2 Mg/Ml unknown) Inj) 2 mg IV NOW ONE (unknown) (no (unknown) (unknown) Lymph # (Auto) (units (unknown) date) (9778-8176) /uL unknown) (unknown) (no (unknown) (unknown) Lymph # (Auto) (units (unknown) date) 1700 (1373-8014) unknown) /uL (unknown) (no (unknown) (unknown) Lymph % (Auto) (units (unknown) date) (25-40) % unknown) (unknown) (no (unknown) (unknown) Lymph % (Auto) (units (unknown) date) 50.6 H (25-40) % unknown) (unknown) (no (unknown) (unknown) MCH (26-34) PG (units (unknown) date) unknown) (unknown) (no (unknown) (unknown) MCH 26.0 (26-34) (units (unknown) date) PG unknown) (unknown) (no (unknown) (unknown) MCHC (30-36) % (units (unknown) date) unknown) (unknown) (no (unknown) (unknown) MCHC 32.7 (30-36) (units (unknown) date) % unknown) (unknown) (no (unknown) (unknown) MCV (80-100) fL (units (unknown) date) unknown) (unknown) (no (unknown) (unknown) MCV 79.5 L (units (unk nown) date) (80-100) fL unknown) (unknown) (no (unknown) (unknown) MDM - Alcohol (units ( unknown) date) unknown) (unknown) (no (unknown) (unknown) MDM Narrative (units ( unknown) date) unknown) (unknown) (no (unknown) (unknown) MIPS: This (units (unk n) date) encounter doesn't unknown) have any diagnosis' associated with MIPS criteria. (unknown) (no (unknown) (unknown) MSK: moves all (units (unknown) date) extremities, unknown) neurovascularly intact, no weakness, normal tone no (unknown) (no (unknown) (unknown) Medical History (units (unknown) date) (Reviewed 07/12/22 unknown) @ 17:50 by Juliet Paz RECREATION PROGRAMMER) (unknown) (no (unknown) (unknown) Medical decision (units (unknown) date) making narrative: unknown) (unknown) (no (unknown) (unknown) Medication (units (unk n) date) Instructions unknown) Recorded Confirmed (unknown) (no (unknown) (unknown) Medication (units (unk nown) date) Instructions unknown) Recorded (unknown) (no (unknown) (unknown) Menometrorrhagia (units (unknown) date) unknown) (unknown) (no (unknown) (unknown) Mode of arrival: (units (unknown) date) Ambulatory unknown) (unknown) (no (unknown) (unknown) Yates # (Auto) (units ( unknown) date) (0-900) /uL unknown) (unknown) (no (unknown) (unknown) Yates # (Auto) 100 (units (unknown) date) (0-900) /uL unknown) (unknown) (no (unknown) (unknown) Yates % (Auto) (units ( unknown) date) (3-14) % unknown) (unknown) (no (unknown) (unknown) Yates % (Auto) 2.7 (units (unknown) date) L (3-14) % unknown) (unknown) (no (unknown) (unknown) Mother Diabetes (units (unknown) date) mellitus unknown) (unknown) (no (unknown) (unknown) Narrative (units (unkn own) date) unknown) (unknown) (no (unknown) (unknown) Nausea/vomiting ?> (units (unknown) date) 0 = No nausea and unknown) no vomiting (unknown) (no (unknown) (unknown) Neuro: normal (units ( unknown) date) speech and unknown) cognition, A+O x3, ambulatory, clear speech (unknown) (no (unknown) (unknown) Neut # (Auto) (units ( unknown) date) (2747-4852) /uL unknown) (unknown) (no (unknown) (unknown) Neut # (Auto) 1500 (units (unknown) date) (5611-3057) /uL unknown) (unknown) (no (unknown) (unknown) Neut % (Auto) (units ( unknown) date) (50-75) % unknown) (unknown) (no (unknown) (unknown) Neut % (Auto) 45.5 (units (unknown) date) L (50-75) % unknown) (unknown) (no (unknown) (unknown) No Action (units (unkn own) date) unknown) (unknown) (no (unknown) (unknown) Obesity (units (unkno wn) date) unknown) (unknown) (no (unknown) (unknown) Ondansetron HCl (units (unknown) date) (Ondansetron 4 Mg unknown) Odt) 4 mg SL NOW ONE (unknown) (no (unknown) (unknown) Ondansetron HCl (units (unknown) date) (Ondansetron 4 Mg/2 unknown) Ml Inj) 4 mg IV Q6HR PRN (unknown) (no (unknown) (unknown) Ordered: (units (unkno wn) date) unknown) (unknown) (no (unknown) (unknown) Orders (units (unkno wn) date) unknown) (unknown) (no (unknown) (unknown) Orientation/cloudi (units (unknown) date) ng of sensorium ?> unknown) 0 = Oriented, can do serial additions (unknown) (no (unknown) (unknown) Overweight (units (unk nown) date) unknown) (unknown) (no (unknown) (unknown) Oxygen Delivery (units (unknown) date) Method Room Air unknown) 07/12/22 16:10 (unknown) (no (unknown) (unknown) Oxygen Delivery (units (unknown) date) Method Room Air unknown) Room Air (unknown) (no (unknown) (unknown) PRN Reason: Nausea (units (unknown) date) And Vomiting unknown) (unknown) (no (unknown) (unknown) Paroxysmal sweats (units (unknown) date) ?> 0 = No sweat unknown) visible (unknown) (no (unknown) (unknown) Patient History (units (unknown) date) unknown) (unknown) (no (unknown) (unknown) Patient: (units (unkno wn) date) Sarah Connors R unknown) MR#: M (unknown) (no (unknown) (unknown) Patients with (units ( unknown) date) scores >= may unknown) require medication for withdrawal. (unknown) (no (unknown) (unknown) Pertinent lab (units ( unknown) date) findings reviewed: unknown) CBC is pertinent for mild leukopenia of 3.3, (unknown) (no (unknown) (unknown) Plt Count (units (unkn own) date) (150-400) X103/uL unknown) (unknown) (no (unknown) (unknown) Plt Count 226 (units ( unknown) date) (150-400) X103/uL unknown) (unknown) (no (unknown) (unknown) Point of Care (units ( unknown) date) Testing unknown) (unknown) (no (unknown) (unknown) Potassium (units (unkn own) date) (3.4-5.1) mmol/L unknown) (unknown) (no (unknown) (unknown) Potassium 3.9 (units ( unknown) date) (3.4-5.1) mmol/L unknown) (unknown) (no (unknown) (unknown) Test (units (unknown) date) Results Negative unknown) (unknown) (no (unknown) (unknown) Prescriptions: (units (unknown) date) unknown) (unknown) (no (unknown) (unknown) Previous Rx's (units ( unknown) date) unknown) (unknown) (no (unknown) (unknown) Psych: mental (units ( unknown) date) status is grossly unknown) normal, congruent mood, normal affect, pleasant (unknown) (no (unknown) (unknown) Pulse Oximetry 99 (units (unknown) date) 07/12/22 16:10 unknown) (unknown) (no (unknown) (unknown) Pulse Oximetry 99 (units (unknown) date) 99 unknown) (unknown) (no (unknown) (unknown) Pulse Rate 82 (units ( unknown) date) 07/12/22 16:10 unknown) (unknown) (no (unknown) (unknown) Pulse Rate 82 86 (units (unknown) date) unknown) (unknown) (no (unknown) (unknown) Qualifiers: (units (un known) date) unknown) (unknown) (no (unknown) (unknown) Questions are (units ( unknown) date) addressed and there unknown) is agreement with the plan and for follow-up. (unknown) (no (unknown) (unknown) RBC (4.0-5.2) (units ( unknown) date) X106/uL unknown) (unknown) (no (unknown) (unknown) RBC 4.44 (4.0-5.2) (units (unknown) date) X106/uL unknown) (unknown) (no (unknown) (unknown) RDW (11.6-14.8) % (units (unknown) date) unknown) (unknown) (no (unknown) (unknown) RDW 17.3 H (units (unk nown) date) (11.6-14.8) % unknown) (unknown) (no (unknown) (unknown) RESULT SUMMARY: (units (unknown) date) unknown) (unknown) (no (unknown) (unknown) ROS Unobtainable: (units (unknown) date) All systems unknown) reviewed + are unremarkable except as noted in HPI (unknown) (no (unknown) (unknown) Referrals: (units (unk nown) date) unknown) (unknown) (no (unknown) (unknown) Related Data (units (u nknown) date) unknown) (unknown) (no (unknown) (unknown) Respiratory Rate (units (unknown) date) 14 07/12/22 16:10 unknown) (unknown) (no (unknown) (unknown) Respiratory Rate (units (unknown) date) 14 22 unknown) (unknown) (no (unknown) (unknown) Respiratory: (units (u nknown) date) normal effort, able unknown) to speak in complete sentences, without (unknown) (no (unknown) (unknown) Review of Systems (units (unknown) date) unknown) (unknown) (no (unknown) (unknown) Reviewed vitals (units (unknown) date) signs and nursing unknown) notes. (unknown) (no (unknown) (unknown) S/P myringotomy (units (unknown) date) with insertion of unknown) tube (unknown) (no (unknown) (unknown) SARS-CoV-2 (PCR) (units (unknown) date) (Negative) unknown) (unknown) (no (unknown) (unknown) SARS-CoV-2 (PCR) (units (unknown) date) Negative (Negative) unknown) (unknown) (no (unknown) (unknown) (spontaneous (units (unknown) date) vaginal delivery) unknown) (-09/05/18) (unknown) (no (unknown) (unknown) Salicylate Stat (units (unknown) date) unknown) (unknown) (no (unknown) (unknown) Salicylates < 1.0 (units (unknown) date) (<20) mg/dL unknown) (unknown) (no (unknown) (unknown) Salicylates (<20) (units (unknown) date) mg/dL unknown) (unknown) (no (unknown) (unknown) She was given a (units (unknown) date) couple water, a unknown) diet order was ordered however they may not (unknown) (no (unknown) (unknown) Signed By: (units (unk nown) date) unknown) (unknown) (no (unknown) (unknown) Skin: brisk (units (un known) date) capillary refill, unknown) without pallor or erythema (unknown) (no (unknown) (unknown) Smoker (units (unkno wn) date) unknown) (unknown) (no (unknown) (unknown) Smoking Status: (units (unknown) date) Former smoker unknown) (unknown) (no (unknown) (unknown) Social History (units (unknown) date) (Reviewed 07/12/22 unknown) @ 17:50 by LYUDMILA Do) (unknown) (no (unknown) (unknown) Social (units (unkno wn) date) considerations that unknown) may affect disposition: none (unknown) (no (unknown) (unknown) Sodium (137-145) (units (unknown) date) mmol/L unknown) (unknown) (no (unknown) (unknown) Sodium 140 (units (unk nown) date) (137-145) mmol/L unknown) (unknown) (no (unknown) (unknown) Sodium Chloride (units (unknown) date) (Normal Saline unknown) 0.9%) 1,000 mls @ 1,000 mls/hr IV BOLUS ONE (unknown) (no (unknown) (unknown) Source: patient (units (unknown) date) unknown) (unknown) (no (unknown) (unknown) Stated Complaint: (units (unknown) date) Stress/Depression unknown) (unknown) (no (unknown) (unknown) Stop: 07/12/22 (units (unknown) date) 17:33 unknown) (unknown) (no (unknown) (unknown) Stop: 07/12/22 (units (unknown) date) 17:45 unknown) (unknown) (no (unknown) (unknown) Stop: 07/12/22 (units (unknown) date) 18:28 unknown) (unknown) (no (unknown) (unknown) Stop: 07/12/22 (units (unknown) date) 18:31 unknown) (unknown) (no (unknown) (unknown) Stop: 07/12/22 (units (unknown) date) 19:25 unknown) (unknown) (no (unknown) (unknown) Substance Use (units ( unknown) date) Type: does not use unknown) (unknown) (no (unknown) (unknown) Surgical History (units (unknown) date) (Reviewed 07/12/22 unknown) @ 17:50 by LYUDMILA Do) (unknown) (no (unknown) (unknown) Tactile (units (unkno wn) date) disturbances ?> 1 = unknown) Very mild itching, pin and needles, burning, or (unknown) (no (unknown) (unknown) Temperature 97.2 F (units (unknown) date) L 07/12/22 16:10 unknown) (unknown) (no (unknown) (unknown) Temperature 97.2 F (units (unknown) date) L unknown) (unknown) (no (unknown) (unknown) Thiamine HCl (units (u nknown) date) (Thiamine 100 Mg unknown) Tablet) 100 mg PO NOW ONE (unknown) (no (unknown) (unknown) Thiamine HCl 200 (units (unknown) date) mg/ Sodium unknown) (Chloride) 102 mls @ 408 mls/hr IV NOW ONE (unknown) (no (unknown) (unknown) This is a (units (unkn own) date) 31-year-old female unknown) with history of alcohol abuse and appears to have (unknown) (no (unknown) (unknown) Thyroid (units (unkno wn) date) Stimulating Hormone unknown) Stat (unknown) (no (unknown) (unknown) Time Seen by (units (u nknown) date) Provider: 07/12/22 unknown) 17:05 (unknown) (no (unknown) (unknown) Total Bilirubin (units (unknown) date) (0.2-1.3) mg/dL unknown) (unknown) (no (unknown) (unknown) Total Bilirubin (units (unknown) date) 0.4 (0.2-1.3) mg/dL unknown) (unknown) (no (unknown) (unknown) Total Protein (units ( unknown) date) (6.3-8.2) g/dL unknown) (unknown) (no (unknown) (unknown) Total Protein 7.3 (units (unknown) date) (6.3-8.2) g/dL unknown) (unknown) (no (unknown) (unknown) Tremor ?> 1 = Not (units (unknown) date) visible, but can be unknown) felt fingertip to fingertip (unknown) (no (unknown) (unknown) U Benzodiazepines (units (unknown) date) Scrn (Negative) unknown) (unknown) (no (unknown) (unknown) U Benzodiazepines (units (unknown) date) Scrn Negative unknown) (Negative) (unknown) (no (unknown) (unknown) U Marijuana (THC) (units (unknown) date) Screen (Negative) unknown) (unknown) (no (unknown) (unknown) U Marijuana (THC) (units (unknown) date) Screen Negative unknown) (Negative) (unknown) (no (unknown) (unknown) U Methamphetamines (units (unknown) date) Scrn (Negative) unknown) (unknown) (no (unknown) (unknown) U Methamphetamines (units (unknown) date) Scrn Negative unknown) (Negative) (unknown) (no (unknown) (unknown) U Opiates 300ng/mL (units (unknown) date) cut (Negative) unknown) (unknown) (no (unknown) (unknown) U Opiates 300ng/mL (units (unknown) date) cut Negative unknown) (Negative) (unknown) (no (unknown) (unknown) U Tricyclic (units (un known) date) Antidepress unknown) (Negative) (unknown) (no (unknown) (unknown) U Tricyclic (units (un known) date) Antidepress unknown) Negative (Negative) (unknown) (no (unknown) (unknown) Ur Amphetamines (units (unknown) date) Screen (Negative) unknown) (unknown) (no (unknown) (unknown) Ur Amphetamines (units (unknown) date) Screen Negative unknown) (Negative) (unknown) (no (unknown) (unknown) Ur Barbiturates (units (unknown) date) Screen (Negative) unknown) (unknown) (no (unknown) (unknown) Ur Barbiturates (units (unknown) date) Screen Negative unknown) (Negative) (unknown) (no (unknown) (unknown) Ur Culture (units (unk nown) date) Indicated? Specimen unknown) cultured (unknown) (no (unknown) (unknown) Ur Culture (units (unk nown) date) Indicated? unknown) (unknown) (no (unknown) (unknown) Ur MDMA Scrn (units (u nknown) date) (Ecstasy) unknown) (Negative) (unknown) (no (unknown) (unknown) Ur MDMA Scrn (units (u nknown) date) (Ecstasy) Negative unknown) (Negative) (unknown) (no (unknown) (unknown) Ur Oxycodone (units (u nknown) date) Screen (Negative) unknown) (unknown) (no (unknown) (unknown) Ur Oxycodone (units (u nknown) date) Screen Negative unknown) (Negative) (unknown) (no (unknown) (unknown) Ur Phencyclidine (units (unknown) date) Scrn (Negative) unknown) (unknown) (no (unknown) (unknown) Ur Phencyclidine (units (unknown) date) Scrn Negative unknown) (Negative) (unknown) (no (unknown) (unknown) Ur Squamous Epith (units (unknown) date) Cells (0-5/HPF) unknown) (unknown) (no (unknown) (unknown) Ur Squamous Epith (units (unknown) date) Cells 1-5 /hpf unknown) (0-5/HPF) (unknown) (no (unknown) (unknown) Urine Bacteria (units (unknown) date) (None) unknown) (unknown) (no (unknown) (unknown) Urine Bacteria (units (unknown) date) Many (>30) H (None) unknown) (unknown) (no (unknown) (unknown) Urine Cocaine (units ( unknown) date) Screen (Negative) unknown) (unknown) (no (unknown) (unknown) Urine Cocaine (units ( unknown) date) Screen Negative unknown) (Negative) (unknown) (no (unknown) (unknown) Urine Culture Stat (units (unknown) date) unknown) (unknown) (no (unknown) (unknown) Urine Dip (units (unkn own) date) unknown) (unknown) (no (unknown) (unknown) Urine Drug Screen, (units (unknown) date) Rapid Stat unknown) (unknown) (no (unknown) (unknown) Urine Methadone (units (unknown) date) Screen (Negative) unknown) (unknown) (no (unknown) (unknown) Urine Methadone (units (unknown) date) Screen Negative unknown) (Negative) (unknown) (no (unknown) (unknown) Urine Microscopic (units (unknown) date) Stat unknown) (unknown) (no (unknown) (unknown) Urine RBC (units (unkn own) date) (0-5/HPF) unknown) (unknown) (no (unknown) (unknown) Urine RBC 1-5/hpf (units (unknown) date) (0-5/HPF) unknown) (unknown) (no (unknown) (unknown) Urine Specific (units (unknown) date) [place] 1.015 unknown) (unknown) (no (unknown) (unknown) Urine WBC (units (unkn own) date) (0-5/HPF) unknown) (unknown) (no (unknown) (unknown) Urine WBC 1-5/hpf (units (unknown) date) (0-5/HPF) unknown) (unknown) (no (unknown) (unknown) Urine microscopy (units (unknown) date) with many bacteria, unknown) pending for culture, will treat for acute (unknown) (no (unknown) (unknown) Visual (units (unkno wn) date) disturbances ?> 1 = unknown) Very mild sensitivity (unknown) (no (unknown) (unknown) Vital Signs - 8 hr (units (unknown) date) unknown) (unknown) (no (unknown) (unknown) Vital Signs (units (un known) date) unknown) (unknown) (no (unknown) (unknown) Vital signs: (units (u nknown) date) unknown) (unknown) (no (unknown) (unknown) WBC (4.5-11.0) (units (unknown) date) X103/uL unknown) (unknown) (no (unknown) (unknown) WBC 3.3 L (units (unkn own) date) (4.5-11.0) X103/uL [...] unknown) tablet (unknown) (no (unknown) (unknown) alcohol in 300s, (units (unknown) date) she was last here unknown) in the emergency department in May of (unknown) (no (unknown) (unknown) alcohol intake (units (unknown) date) frequency: 3 or unknown) more drinks per day (unknown) (no (unknown) (unknown) alcohol intake: (units (unknown) date) former unknown) (unknown) (no (unknown) (unknown) and below (units (unkn own) date) unknown) (unknown) (no (unknown) (unknown) and cooperative (units (unknown) date) unknown) (unknown) (no (unknown) (unknown) arrhythmia, or (units (unknown) date) acute ischemic unknown) changes. (unknown) (no (unknown) (unknown) at extension and (units (unknown) date) states that she unknown) feels symptoms of alcohol withdrawal. Denies (unknown) (no (unknown) (unknown) bpm with rightward (units (unknown) date) axis and normal unknown) intervals. No STEMI, ST segment changes, (unknown) (no (unknown) (unknown) current (units (unkno wn) date) occupational unknown) exposures/hazards: Yes (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 with Pandemic ) (unknown) (no (unknown) (unknown) cystitis without (units (unknown) date) hematuria unknown) (unknown) (no (unknown) (unknown) cystitis (units (unkno wn) date) unknown) (unknown) (no (unknown) (unknown) cystitis, she is (units (unknown) date) p.o. tolerant, unknown) still pending lab work (unknown) (no (unknown) (unknown) deliver since it (units (unknown) date) is after 17:00 and unknown) the diet order was ordered at 17:30. Samira (unknown) (no (unknown) (unknown) detox as well. (units (unknown) date) unknown) (unknown) (no (unknown) (unknown) diarrhea or (units (un known) date) current stool unknown) changes. (unknown) (no (unknown) (unknown) diphenhydramine (units (unknown) [...] mg unknown) capsule (unknown) (no (unknown) (unknown) draw her labs (units ( unknown) date) unknown) (unknown) (no (unknown) (unknown) education level: (units (unknown) date) college unknown) (unknown) (no (unknown) (unknown) emergency (units (unkn own) date) department on unknown) 06/18/2022 and a few days prior to that with a blood (unknown) (no (unknown) (unknown) renee/zoroastrianism: (units (unknown) date) Buddhist unknown) (unknown) (no (unknown) (unknown) fluid, EtOH, and (units (unknown) date) CIWA, ordered 2 mg unknown) of IV lorazepam for patient's symptoms, (unknown) (no (unknown) (unknown) for alcohol (units (un known) date) related complaints unknown) through 2019, and she presented to the [facility] (unknown) (no (unknown) (unknown) from social work (units (unknown) date) is aware and unknown) pending her lab work to arrange for inpatient (unknown) (no (unknown) (unknown) her urine (units (unkn own) date) microscopy came unknown) back positive for many bacteria, will treat for acute (unknown) (no (unknown) (unknown) household members: (units (unknown) date) spouse and children unknown) (unknown) (no (unknown) (unknown) hydrocodone (units (un known) date) [HYDROCODONE] unknown) AdvReac Unknown VOMITING Verified 07/12/22 16:18 (unknown) (no (unknown) (unknown) ibuprofen 600 mg (units (unknown) date) Tablet unknown) (unknown) (no (unknown) (unknown) ibuprofen 600 mg (units (unknown) date) tablet 600 mg PO unknown) Q6HR PRN Pain, Mild 07/04/20 (unknown) (no (unknown) (unknown) injuries, denies (units (unknown) date) chance of unknown) , denies any other ingestions, is pleasant, (unknown) (no (unknown) (unknown) intoxicated (units (un known) date) endorses symptoms unknown) of alcohol withdrawal. (unknown) (no (unknown) (unknown) intoxicated, (units (un known) date) pleasant, unknown) interactive and comfortable although active and fidgeting (unknown) (no (unknown) (unknown) limited history (units (unknown) date) currently due to unknown) intoxication. She states that she is recently (unknown) (no (unknown) (unknown) lorazepam at 2 mg (units (unknown) date) for this. unknown) (unknown) (no (unknown) (unknown) marital status: (units (unknown) date) unknown) (unknown) (no (unknown) (unknown) metoclopramide (units (unknown) date) Allergy Mild unknown) RASH/HIVES Verified 07/12/22 16:18 (unknown) (no (unknown) (unknown) mild anemia but (units (unknown) date) improved from her unknown) prior with H+H of 11.5 and 35.3, no evidence (unknown) (no (unknown) (unknown) nausea vomiting or (units (unknown) date) abdominal pain at unknown) this time. Denies any vomiting home or (unknown) (no (unknown) (unknown) number of (units (unkn own) date) children: 1 unknown) (unknown) (no (unknown) (unknown) numbness (units (unkno wn) date) unknown) (unknown) (no (unknown) (unknown) occupational (units (u nknown) date) status: employed unknown) (unknown) (no (unknown) (unknown) of bleeding (units (un known) date) anywhere, CMP unknown) (unknown) (no (unknown) (unknown) ondansetron 4 [...] tablet,disintegrati unknown) ng (unknown) (no (unknown) (unknown) ordered p.o. (units (u nknown) date) Ativan for her unknown) symptoms and ask our into call lab to come up and (unknown) (no (unknown) (unknown) prenat.vits,otis,mi (units (unknown) date) [id number] 1 tab unknown) PO DAILY 12/30/19 07/03/20 (unknown) (no (unknown) (unknown) prenat.vits,otis,mi (units (unknown) date) [id number] Tablet unknown) (unknown) (no (unknown) (unknown) relapsed due to a (units (unknown) date) divorce with her unknown) . 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 She is currently (unknown) (no (unknown) (unknown) significant tremor (units (unknown) date) or tongue unknown) fasciculation, she has a mild tremor with her arms (unknown) (no (unknown) (unknown) social work and (units (unknown) date) orders are pending unknown) (unknown) (no (unknown) (unknown) special renee (units ( unknown) date) needs: No unknown) (unknown) (no (unknown) (unknown) substance abuse, (units (unknown) date) alcohol unknown) intoxication, psychosis, mood disorder, depression (unknown) (no (unknown) (unknown) substance use (units ( unknown) date) type: does not use unknown) (unknown) (no (unknown) (unknown) tablet vomiting (units (unknown) date) #14 tabs unknown) (unknown) (no (unknown) (unknown) tablet vomiting (units (unknown) date) #20 tabs unknown) (unknown) (no (unknown) (unknown) tablet vomiting (units (unknown) date) #30 tabs unknown) (unknown) (no (unknown) (unknown) tenderness or (units ( unknown) date) exquisite unknown) tenderness with exam. (unknown) (no (unknown) (unknown) that she drinks (units (unknown) date) vodka and admits to unknown) drinking heavily today, states that she took (unknown) (no (unknown) (unknown) the bottle upside (units (unknown) date) down and started unknown) checking from it. She denies any recent (unknown) (no (unknown) (unknown) tramadol 50 mg (units (unknown) date) tablet 50 mg PO Q6H unknown) PRN pain #10 tabs 06/12/22 (unknown) (no (unknown) (unknown) tramadol 50 mg (units (unknown) date) tablet unknown) (unknown) (no (unknown) (unknown) tremors, no (units (un known) date) tachycardia, her unknown) CIWA is currently 10, ordered another p.o. dose of (unknown) (no (unknown) (unknown) well as prior (units ( unknown) date) records if unknown) available. (unknown) (no (unknown) (unknown) wheezing, stridor, (units (unknown) date) or abnormal breath unknown) sounds. No retractions or tachypnea. Result panel [id number] (unknown) (no (unknown) (unknown) (no value) (units (unk nown) date) unknown) (unknown) (no (unknown) (unknown) (1-3) #30 tabs (units (unknown) date) unknown) (unknown) (no (unknown) (unknown) (Benadryl) caps (units (unknown) date) unknown) (unknown) (no (unknown) (unknown) (Colace) (units (unkno wn) date) unknown) (unknown) (no (unknown) (unknown) (Tylenol) (units (unkn own) date) unknown) (unknown) (no (unknown) (unknown) [id number] (units (unkn own) date) unknown) (unknown) (no (unknown) (unknown) 07/12/22 07/12/22 (units (unknown) date) 07/12/22 unknown) Range/Units (unknown) (no (unknown) (unknown) 07/12/22 07/12/22 (units (unknown) date) Range/Units unknown) (unknown) (no (unknown) (unknown) 07/12/22 16:28 (units (unknown) date) unknown) (unknown) (no (unknown) (unknown) 07/12/22 16:32 (units (unknown) date) unknown) (unknown) (no (unknown) (unknown) 07/12/22 18:28 (units (unknown) date) unknown) (unknown) (no (unknown) (unknown) 07/12/22 19:15 (units (unknown) date) unknown) (unknown) (no (unknown) (unknown) 07/12/22 (units (unkno wn) date) unknown) (unknown) (no (unknown) (unknown) 1 tab PO DAILY (units (unknown) date) unknown) (unknown) (no (unknown) (unknown) 100 mg PO BID Qty: (units (unknown) date) 30 0RF unknown) (unknown) (no (unknown) (unknown) 16:10 07/12/22 (units (unknown) date) unknown) (unknown) (no (unknown) (unknown) 16:32 16:32 16:32 (units (unknown) date) unknown) (unknown) (no (unknown) (unknown) 1836 patient still (units (unknown) date) does not have an unknown) IV, has not received any IV fluid her (unknown) (no (unknown) (unknown) 18:53 (units (unkno wn) date) unknown) (unknown) (no (unknown) (unknown) 1900 still no IV, (units (unknown) date) patient is p.o. unknown) challenging, she received her p.o. lorazepam, (unknown) (no (unknown) (unknown) 1930, patient now (units (unknown) date) feels depressed, unknown) she is lying in bed, feeling bad, has (unknown) (no (unknown) (unknown) 19:15 19:15 (units (un known) date) unknown) (unknown) (no (unknown) (unknown) 1999 patient is (units (unknown) date) feeling better now, unknown) her lab work is starting to return and ETOH (unknown) (no (unknown) (unknown) 2022 with similar (units (unknown) date) symptoms. She comes unknown) in complaining of needing help, states (unknown) (no (unknown) (unknown) 25 mg PO [...] Qty: 30 0RF (unknown) (no (unknown) (unknown) 9 points (units (unkno wn) date) unknown) (unknown) (no (unknown) (unknown) ALT (<35) IU/L (units (unknown) date) unknown) (unknown) (no (unknown) (unknown) ALT 21 (<35) IU/L (units (unknown) date) unknown) (unknown) (no (unknown) (unknown) AST (14-36) IU/L (units (unknown) date) unknown) (unknown) (no (unknown) (unknown) AST 67 H (14-36) (units (unknown) date) IU/L unknown) (unknown) (no (unknown) (unknown) Acetaminophen < 10 (units (unknown) date) (10-30) ug/mL unknown) (unknown) (no (unknown) (unknown) Acetaminophen (units ( unknown) date) (10-30) ug/mL unknown) (unknown) (no (unknown) (unknown) Acetaminophen Stat (units (unknown) date) unknown) (unknown) (no (unknown) (unknown) Acute cystitis (units (unknown) date) unknown) (unknown) (no (unknown) (unknown) Age/Sex: 31 / F (units (unknown) date) unknown) (unknown) (no (unknown) (unknown) Agitation ?> 2 = (units (unknown) date) (More severe unknown) symptoms) (unknown) (no (unknown) (unknown) Albumin (3.5-5.0) (units (unknown) date) g/dL unknown) (unknown) (no (unknown) (unknown) Albumin 4.3 (units (un known) date) (3.5-5.0) g/dL unknown) (unknown) (no (unknown) (unknown) Albumin/Globulin (units (unknown) date) Ratio (1.0-2.8) unknown) (unknown) (no (unknown) (unknown) Albumin/Globulin (units (unknown) date) Ratio 1.4 (1.0-2.8) unknown) (unknown) (no (unknown) (unknown) Alcohol use (units (un known) date) disorder unknown) (unknown) (no (unknown) (unknown) Alcoholism (units (unk nown) date) unknown) (unknown) (no (unknown) (unknown) Alkaline (units (unkno wn) date) Phosphatase unknown) (38-126) U/L (unknown) (no (unknown) (unknown) Alkaline (units (unkno wn) date) Phosphatase 98 unknown) (38-126) U/L (unknown) (no (unknown) (unknown) Allergies (units (unkn own) date) unknown) (unknown) (no (unknown) (unknown) Allergy/AdvReac (units (unknown) date) Type Severity unknown) Reaction Status Date / Time (unknown) (no (unknown) (unknown) Anemia (-2018) (units (unknown) date) unknown) (unknown) (no (unknown) (unknown) Anxiety ?> 2 = (units (unknown) date) (More severe unknown) symptoms) (unknown) (no (unknown) (unknown) Auditory (units (unkno wn) date) disturbances ?> 1 = unknown) Very mild harshness or ability to frighten (unknown) (no (unknown) (unknown) BUN (7-17) mg/dL (units (unknown) date) unknown) (unknown) (no (unknown) (unknown) BUN 9 (7-17) mg/dL (units (unknown) date) unknown) (unknown) (no (unknown) (unknown) BUN/Creatinine (units (unknown) date) Ratio (6-22) unknown) (unknown) (no (unknown) (unknown) BUN/Creatinine (units (unknown) date) Ratio 11.0 (6-22) unknown) (unknown) (no (unknown) (unknown) Baso # (Auto) (units ( unknown) date) (0-100) /uL unknown) (unknown) (no (unknown) (unknown) Baso # (Auto) 0 (units (unknown) date) (0-100) /uL unknown) (unknown) (no (unknown) (unknown) Baso % (Auto) (units ( unknown) date) (0-2) % unknown) (unknown) (no (unknown) (unknown) Baso % (Auto) 0.9 (units (unknown) date) (0-2) % unknown) (unknown) (no (unknown) (unknown) Bedside Urine (units ( unknown) date) Bilirubin - unknown) Negative (unknown) (no (unknown) (unknown) Bedside Urine (units ( unknown) date) Glucose Negative unknown) (unknown) (no (unknown) (unknown) Bedside Urine (units ( unknown) date) Ketone - Negative unknown) (unknown) (no (unknown) (unknown) Bedside Urine (units ( unknown) date) Leukocytes - unknown) Negative (unknown) (no (unknown) (unknown) Bedside Urine (units ( unknown) date) Nitrite + Positive unknown) (unknown) (no (unknown) (unknown) Bedside Urine (units ( unknown) date) Occult Blood - unknown) Negative (unknown) (no (unknown) (unknown) Bedside Urine (units ( unknown) date) Protein - Negative unknown) (unknown) (no (unknown) (unknown) Bedside Urine (units ( unknown) date) Urobilinogen - unknown) Negative (unknown) (no (unknown) (unknown) Bedside Urine pH (units (unknown) date) 6.0 unknown) (unknown) (no (unknown) (unknown) Blood Pressure (units (unknown) date) 112/62 07/12/22 unknown) 16:10 (unknown) (no (unknown) (unknown) Blood Pressure (units (unknown) date) 112/ unknown) (unknown) (no (unknown) (unknown) Blood Pressure (units (unknown) date) [Left Arm] 100/59 L unknown) (unknown) (no (unknown) (unknown) CIWA is now worse (units (unknown) date) and she has unknown) tremors, anxiety is worsening and agitation, (unknown) (no (unknown) (unknown) CIWA-Ar for (units (un known) date) Alcohol Withdrawal unknown) from [facility] on 07/12/2022 (unknown) (no (unknown) (unknown) COVID19 -Nasal (units (unknown) date) RAPID/Pre-Proc Stat unknown) (unknown) (no (unknown) (unknown) Calcium (8.4-10.2) (units (unknown) date) mg/dL unknown) (unknown) (no (unknown) (unknown) Calcium 8.0 L (units ( unknown) date) (8.4-10.2) mg/dL unknown) (unknown) (no (unknown) (unknown) Carbon Dioxide (units (unknown) date) (22-32) mmol/L unknown) (unknown) (no (unknown) (unknown) Carbon Dioxide 23 (units (unknown) date) (22-32) mmol/L unknown) (unknown) (no (unknown) (unknown) Cardiovascular: (units (unknown) date) regular rate and unknown) rhythm, no peripheral edema, warm extremities (unknown) (no (unknown) (unknown) Cephalexin HCl (units (unknown) date) (Cephalexin 250 Mg unknown) Capsule) 500 mg PO Q6H SANDY (unknown) (no (unknown) (unknown) Chief Complaint: (units (unknown) date) Alcohol unknown) intoxication, seeking detox (unknown) (no (unknown) (unknown) Chief Complaint: (units (unknown) date) Toxicology Problem unknown) (unknown) (no (unknown) (unknown) Chloride (98-107) (units (unknown) date) mmol/L unknown) (unknown) (no (unknown) (unknown) Chloride 104 (units (u nknown) date) (98-107) mmol/L unknown) (unknown) (no (unknown) (unknown) Clinical (units (unkno wn) date) Impression: unknown) (unknown) (no (unknown) (unknown) Clinical decision (units (unknown) date) rules or scores unknown) evaluated: CIWA of 9 at 1753 (unknown) (no (unknown) (unknown) Complete Blood (units (unknown) date) Count AUTO DIFF unknown) Stat (unknown) (no (unknown) (unknown) Comprehensive (units ( unknown) date) Metabolic Panel unknown) Stat (unknown) (no (unknown) (unknown) Consult to [facility] - (units (unknown) date) 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 unknown) Stat (unknown) (no (unknown) (unknown) Course of care: (units (unknown) date) Patient is a unknown) difficult IV stick, ordered IV with lab work, (unknown) (no (unknown) (unknown) Course (units (unkno wn) date) unknown) (unknown) (no (unknown) (unknown) Creatinine (units (unk nown) date) (0.52-1.04) mg/dL unknown) (unknown) (no (unknown) (unknown) Creatinine 0.82 (units (unknown) date) (0.52-1.04) mg/dL unknown) (unknown) (no (unknown) (unknown) : 1990 (units (unknown) date) Acct:[id number] unknown) (unknown) (no (unknown) (unknown) Date of Service: (units (unknown) date) 07/12/22 unknown) (unknown) (no (unknown) (unknown) Departure (units (unkn own) date) unknown) (unknown) (no (unknown) (unknown) Differential (units (u nknown) date) diagnoses include unknown) but are not limited to: Alcohol withdrawal, (unknown) (no (unknown) (unknown) Discharge Plan (units (unknown) date) unknown) (unknown) (no (unknown) (unknown) Discontinued (units (u nknown) date) Medications unknown) (unknown) (no (unknown) (unknown) Documented By: KB (units (unknown) date) unknown) (unknown) (no (unknown) (unknown) Documented By: OW (units (unknown) date) unknown) (unknown) (no (unknown) (unknown) ECG Data (units (unkno wn) date) unknown) (unknown) (no (unknown) (unknown) ED Orders (units (unkn own) date) unknown) (unknown) (no (unknown) (unknown) EKG independently (units (unknown) date) reviewed by myself unknown) at 1830 reveals normal sinus rhythm at 72 (unknown) (no (unknown) (unknown) EKG-12 Lead Stat (units (unknown) date) unknown) (unknown) (no (unknown) (unknown) ER Physician: (units ( unknown) date) Juliet Paz unknown) RECREATION PROGRAMMER (unknown) (no (unknown) (unknown) Emergency Report (units (unknown) date) unknown) (unknown) (no (unknown) (unknown) Eos # (Auto) (units (u nknown) date) (0-450) /uL unknown) (unknown) (no (unknown) (unknown) Eos # (Auto) 0 (units (unknown) date) (0-450) /uL unknown) (unknown) (no (unknown) (unknown) Eos % (Auto) (2-4) (units (unknown) date) % unknown) (unknown) (no (unknown) (unknown) Eos % (Auto) 0.3 L (units (unknown) date) (2-4) % unknown) (unknown) (no (unknown) (unknown) Esterase (units (unkno wn) date) unknown) (unknown) (no (unknown) (unknown) Estimated GFR > 60 (units (unknown) date) (>60) mL/min unknown) (unknown) (no (unknown) (unknown) Estimated GFR (units ( unknown) date) (>60) mL/min unknown) (unknown) (no (unknown) (unknown) Ethanol (ETOH) (units (unknown) date) Stat unknown) (unknown) (no (unknown) (unknown) Ethyl Alcohol ( - (units (unknown) date) 10) mg/dL unknown) (unknown) (no (unknown) (unknown) Ethyl Alcohol 338 (units (unknown) date) H ( - 10) mg/dL unknown) (unknown) (no (unknown) (unknown) Exam Narrative: (units (unknown) date) unknown) (unknown) (no (unknown) (unknown) Exam (units (unkno wn) date) unknown) (unknown) (no (unknown) (unknown) Family History (units (unknown) date) (Reviewed 07/12/22 unknown) @ 17:50 by LYUDMILA Do) (unknown) (no (unknown) (unknown) Family/Other (units (u nknown) date) Alcoholism unknown) (unknown) (no (unknown) (unknown) Family/Other (units (u nknown) date) Diabetes mellitus unknown) (unknown) (no (unknown) (unknown) Father Alcoholism (units (unknown) date) unknown) (unknown) (no (unknown) (unknown) Foist,Tonia B, MD (units (unknown) date) [Primary Care unknown) Provider] (unknown) (no (unknown) (unknown) Folic Acid (Folic (units (unknown) date) Acid 1 Mg Tablet) 1 unknown) mg PO DAILY SANDY (unknown) (no (unknown) (unknown) Free T4, Direct (units (unknown) date) Thyroxine Stat unknown) (unknown) (no (unknown) (unknown) GI: abdomen soft, (units (unknown) date) nontender to unknown) palpation, nondistended, without masses, rebound (unknown) (no (unknown) (unknown) General (units (unkno wn) date) unknown) (unknown) (no (unknown) (unknown) General: (units (unkno wn) date) cooperative, unknown) comfortable, in no acute distress, well groomed, appears (unknown) (no (unknown) (unknown) Globulin (1.7-4.1) (units (unknown) date) g/dL unknown) (unknown) (no (unknown) (unknown) Globulin 3.0 (units (u nknown) date) (1.7-4.1) g/dL unknown) (unknown) (no (unknown) (unknown) Glucose (70-100) (units (unknown) date) mg/dL unknown) (unknown) (no (unknown) (unknown) Glucose 111 H (units ( unknown) date) (70-100) mg/dL [...] extraction () unknown) (unknown) (no (unknown) (unknown) HEENT: symmetrical (units (unknown) date) facial expressions, unknown) dry mucous membranes (unknown) (no (unknown) (unknown) HPI - Alcohol (units ( unknown) date) unknown) (unknown) (no (unknown) (unknown) HPI narrative: (units (unknown) date) unknown) (unknown) (no (unknown) (unknown) Hct (36-46) % (units ( unknown) date) unknown) (unknown) (no (unknown) (unknown) Hct 35.3 L (36-46) (units (unknown) date) % unknown) (unknown) (no (unknown) (unknown) Headache/fullness (units (unknown) date) in head ?> 1 = Very unknown) mild (unknown) (no (unknown) (unknown) Hematuria (units (unkn own) date) presence: without unknown) hematuria Qualified Code(s): N30.00 - Acute (unknown) (no (unknown) (unknown) Hgb (12.0-16.0) (units (unknown) date) g/dL unknown) (unknown) (no (unknown) (unknown) Hgb 11.5 L (units (unk nown) date) (12.0-16.0) g/dL unknown) (unknown) (no (unknown) (unknown) History of Present (units (unknown) date) Illness unknown) (unknown) (no (unknown) (unknown) Home Medications (units (unknown) date) unknown) (unknown) (no (unknown) (unknown) I have (units (unkno wn) date) independently unknown) reviewed the patient's vital signs and nursing notes as (unknown) (no (unknown) (unknown) INPUTS: (units (unkno wn) date) unknown) (unknown) (no (unknown) (unknown) Independent (units (un known) date) historian: Patient unknown) (unknown) (no (unknown) (unknown) Initial Vital (units ( unknown) date) Signs unknown) (unknown) (no (unknown) (unknown) Initial Vital (units ( unknown) date) Signs: unknown) (unknown) (no (unknown) (unknown) Insomnia (units (unkno wn) date) unknown) (unknown) (no (unknown) (unknown) Interpretation: (units (unknown) date) unknown) (unknown) (no (unknown) (unknown) [facility] (units (unknown) date) [address] unknown) [place] [address] (unknown) (no (unknown) (unknown) Lab Data (units (unkno wn) date) unknown) (unknown) (no (unknown) (unknown) Lab Results (units (un known) date) unknown) (unknown) (no (unknown) (unknown) Labs: (units (unkno wn) date) unknown) (unknown) (no (unknown) (unknown) Last Admin: (units (un known) date) 07/12/22 18:39 unknown) Dose: 4 mg (unknown) (no (unknown) (unknown) Last Admin: (units (un known) date) 07/12/22 18:40 unknown) Dose: 1 mg (unknown) (no (unknown) (unknown) Last Admin: (units (un known) date) 07/12/22 18:56 unknown) Dose: Not Given (unknown) (no (unknown) (unknown) Lorazepam (units (unkn own) date) (Lorazepam 0.5 Mg unknown) Tablet) 1 mg PO NOW ONE (unknown) (no (unknown) (unknown) Lorazepam (units (unkn own) date) (Lorazepam 0.5 Mg unknown) Tablet) 2 mg PO NOW ONE (unknown) (no (unknown) (unknown) Lorazepam (units (unkn own) date) (Lorazepam 2 Mg/Ml unknown) Inj) 2 mg IV NOW ONE (unknown) (no (unknown) (unknown) Lymph # (Auto) (units (unknown) date) ([id number]) /uL unknown) (unknown) (no (unknown) (unknown) Lymph # (Auto) (units (unknown) date) 1700 ([id number]) unknown) /uL (unknown) (no (unknown) (unknown) Lymph % (Auto) (units (unknown) date) (25-40) % unknown) (unknown) (no (unknown) (unknown) Lymph % (Auto) (units (unknown) date) 50.6 H (25-40) % unknown) (unknown) (no (unknown) (unknown) MCH (26-34) PG (units (unknown) date) unknown) (unknown) (no (unknown) (unknown) MCH 26.0 (26-34) (units (unknown) date) PG unknown) (unknown) (no (unknown) (unknown) MCHC (30-36) % (units (unknown) date) unknown) (unknown) (no (unknown) (unknown) MCHC 32.7 (30-36) (units (unknown) date) % unknown) (unknown) (no (unknown) (unknown) MCV (80-100) fL (units (unknown) date) unknown) (unknown) (no (unknown) (unknown) MCV 79.5 L (units (unk nown) date) (80-100) fL unknown) (unknown) (no (unknown) (unknown) MDM - Alcohol (units ( unknown) date) unknown) (unknown) (no (unknown) (unknown) MDM Narrative (units ( unknown) date) unknown) (unknown) (no (unknown) (unknown) MIPS: This (units (unk n) date) encounter doesn't unknown) have any diagnosis' associated with MIPS criteria. (unknown) (no (unknown) (unknown) MSK: moves all (units (unknown) date) extremities, unknown) neurovascularly intact, no weakness, normal tone no (unknown) (no (unknown) (unknown) Medical History (units (unknown) date) (Reviewed 07/12/22 unknown) @ 17:50 by Juliet Paz [facility]) (unknown) (no (unknown) (unknown) Medical decision (units (unknown) date) making narrative: unknown) (unknown) (no (unknown) (unknown) Medication (units (unk n) date) Instructions unknown) Recorded Confirmed (unknown) (no (unknown) (unknown) Medication (units (unk nown) date) Instructions unknown) Recorded (unknown) (no (unknown) (unknown) Menometrorrhagia (units (unknown) date) unknown) (unknown) (no (unknown) (unknown) Mode of arrival: (units (unknown) date) Ambulatory unknown) (unknown) (no (unknown) (unknown) Yates # (Auto) (units ( unknown) date) (0-900) /uL unknown) (unknown) (no (unknown) (unknown) Yates # (Auto) 100 (units (unknown) date) (0-900) /uL unknown) (unknown) (no (unknown) (unknown) Yates % (Auto) (units ( unknown) date) (3-14) % unknown) (unknown) (no (unknown) (unknown) Yates % (Auto) 2.7 (units (unknown) date) L (3-14) % unknown) (unknown) (no (unknown) (unknown) Mother Diabetes (units (unknown) date) mellitus unknown) (unknown) (no (unknown) (unknown) Narrative (units (unkn own) date) unknown) (unknown) (no (unknown) (unknown) Nausea/vomiting ?> (units (unknown) date) 0 = No nausea and unknown) no vomiting (unknown) (no (unknown) (unknown) Neuro: normal (units ( unknown) date) speech and unknown) cognition, A+O x3, ambulatory, clear speech (unknown) (no (unknown) (unknown) Neut # (Auto) (units ( unknown) date) (0061-7216) /uL unknown) (unknown) (no (unknown) (unknown) Neut # (Auto) 1500 (units (unknown) date) (2258-9236) /uL unknown) (unknown) (no (unknown) (unknown) Neut % (Auto) (units ( unknown) date) (50-75) % unknown) (unknown) (no (unknown) (unknown) Neut % (Auto) 45.5 (units (unknown) date) L (50-75) % unknown) (unknown) (no (unknown) (unknown) No Action (units (unkn own) date) unknown) (unknown) (no (unknown) (unknown) Obesity (units (unkno wn) date) unknown) (unknown) (no (unknown) (unknown) Ondansetron HCl (units (unknown) date) (Ondansetron 4 Mg unknown) Odt) 4 mg SL NOW ONE (unknown) (no (unknown) (unknown) Ondansetron HCl (units (unknown) date) (Ondansetron 4 Mg/2 unknown) Ml Inj) 4 mg IV Q6HR PRN (unknown) (no (unknown) (unknown) Ordered: (units (unkno wn) date) unknown) (unknown) (no (unknown) (unknown) Orders (units (unkno wn) date) unknown) (unknown) (no (unknown) (unknown) Orientation/cloudi (units (unknown) date) ng of sensorium ?> unknown) 0 = Oriented, can do serial additions (unknown) (no (unknown) (unknown) Overweight (units (unk nown) date) unknown) (unknown) (no (unknown) (unknown) Oxygen Delivery (units (unknown) date) Method Room Air unknown) 07/12/22 16:10 (unknown) (no (unknown) (unknown) Oxygen Delivery (units (unknown) date) Method Room Air unknown) Room Air (unknown) (no (unknown) (unknown) PRN Reason: Nausea (units (unknown) date) And Vomiting unknown) (unknown) (no (unknown) (unknown) Paroxysmal sweats (units (unknown) date) ?> 0 = No sweat unknown) visible (unknown) (no (unknown) (unknown) Patient History (units (unknown) date) unknown) (unknown) (no (unknown) (unknown) Patient: (units (unkno wn) date) Sarah Connors R unknown) MR#: M (unknown) (no (unknown) (unknown) Patients with (units ( unknown) date) scores >= may unknown) require medication for withdrawal. (unknown) (no (unknown) (unknown) Pertinent lab (units ( unknown) date) findings reviewed: unknown) CBC is pertinent for mild leukopenia of 3.3, (unknown) (no (unknown) (unknown) Plt Count (units (unkn own) date) (150-400) X103/uL unknown) (unknown) (no (unknown) (unknown) Plt Count 226 (units ( unknown) date) (150-400) X103/uL unknown) (unknown) (no (unknown) (unknown) Point of Care (units ( unknown) date) Testing unknown) (unknown) (no (unknown) (unknown) Potassium (units (unkn own) date) (3.4-5.1) mmol/L unknown) (unknown) (no (unknown) (unknown) Potassium 3.9 (units ( unknown) date) (3.4-5.1) mmol/L unknown) (unknown) (no (unknown) (unknown) Test (units (unknown) date) Results Negative unknown) (unknown) (no (unknown) (unknown) Prescriptions: (units (unknown) date) unknown) (unknown) (no (unknown) (unknown) Previous Rx's (units ( unknown) date) unknown) (unknown) (no (unknown) (unknown) Psych: mental (units ( unknown) date) status is grossly unknown) normal, congruent mood, normal affect, pleasant (unknown) (no (unknown) (unknown) Pulse Oximetry 99 (units (unknown) date) 07/12/22 16:10 unknown) (unknown) (no (unknown) (unknown) Pulse Oximetry 99 (units (unknown) date) 99 unknown) (unknown) (no (unknown) (unknown) Pulse Rate 82 (units ( unknown) date) 07/12/22 16:10 unknown) (unknown) (no (unknown) (unknown) Pulse Rate 82 86 (units (unknown) date) unknown) (unknown) (no (unknown) (unknown) Qualifiers: (units (un known) date) unknown) (unknown) (no (unknown) (unknown) Questions are (units ( unknown) date) addressed and there unknown) is agreement with the plan and for follow-up. (unknown) (no (unknown) (unknown) RBC (4.0-5.2) (units ( unknown) date) X106/uL unknown) (unknown) (no (unknown) (unknown) RBC 4.44 (4.0-5.2) (units (unknown) date) X106/uL unknown) (unknown) (no (unknown) (unknown) RDW (11.6-14.8) % (units (unknown) date) unknown) (unknown) (no (unknown) (unknown) RDW 17.3 H (units (unk nown) date) (11.6-14.8) % unknown) (unknown) (no (unknown) (unknown) RESULT SUMMARY: (units (unknown) date) unknown) (unknown) (no (unknown) (unknown) ROS Unobtainable: (units (unknown) date) All systems unknown) reviewed + are unremarkable except as noted in HPI (unknown) (no (unknown) (unknown) Referrals: (units (unk nown) date) unknown) (unknown) (no (unknown) (unknown) Related Data (units (u nknown) date) unknown) (unknown) (no (unknown) (unknown) Respiratory Rate (units (unknown) date) 14 07/12/22 16:10 unknown) (unknown) (no (unknown) (unknown) Respiratory Rate (units (unknown) date) 14 22 unknown) (unknown) (no (unknown) (unknown) Respiratory: (units (u nknown) date) normal effort, able unknown) to speak in complete sentences, without (unknown) (no (unknown) (unknown) Review of Systems (units (unknown) date) unknown) (unknown) (no (unknown) (unknown) Reviewed vitals (units (unknown) date) signs and nursing unknown) notes. (unknown) (no (unknown) (unknown) S/P myringotomy (units (unknown) date) with insertion of unknown) tube (unknown) (no (unknown) (unknown) SARS-CoV-2 (PCR) (units (unknown) date) (Negative) unknown) (unknown) (no (unknown) (unknown) SARS-CoV-2 (PCR) (units (unknown) date) Negative (Negative) unknown) (unknown) (no (unknown) (unknown) (spontaneous (units (unknown) date) vaginal delivery) unknown) (-09/05/18) (unknown) (no (unknown) (unknown) Salicylate Stat (units (unknown) date) unknown) (unknown) (no (unknown) (unknown) Salicylates < 1.0 (units (unknown) date) (<20) mg/dL unknown) (unknown) (no (unknown) (unknown) Salicylates (<20) (units (unknown) date) mg/dL unknown) (unknown) (no (unknown) (unknown) She was given a (units (unknown) date) couple water, a unknown) diet order was ordered however they may not (unknown) (no (unknown) (unknown) Signed By: (units (unk nown) date) unknown) (unknown) (no (unknown) (unknown) Skin: brisk (units (un known) date) capillary refill, unknown) without pallor or erythema (unknown) (no (unknown) (unknown) Smoker (units (unkno wn) date) unknown) (unknown) (no (unknown) (unknown) Smoking Status: (units (unknown) date) Former smoker unknown) (unknown) (no (unknown) (unknown) Social History (units (unknown) date) (Reviewed 07/12/22 unknown) @ 17:50 by LYUDMILA Do) (unknown) (no (unknown) (unknown) Social (units (unkno wn) date) considerations that unknown) may affect disposition: none (unknown) (no (unknown) (unknown) Sodium (137-145) (units (unknown) date) mmol/L unknown) (unknown) (no (unknown) (unknown) Sodium 140 (units (unk nown) date) (137-145) mmol/L unknown) (unknown) (no (unknown) (unknown) Sodium Chloride (units (unknown) date) (Normal Saline unknown) 0.9%) 1,000 mls @ 1,000 mls/hr IV BOLUS ONE (unknown) (no (unknown) (unknown) Source: patient (units (unknown) date) unknown) (unknown) (no (unknown) (unknown) Stated Complaint: (units (unknown) date) Stress/Depression unknown) (unknown) (no (unknown) (unknown) Stop: 07/12/22 (units (unknown) date) 17:33 unknown) (unknown) (no (unknown) (unknown) Stop: 07/12/22 (units (unknown) date) 17:45 unknown) (unknown) (no (unknown) (unknown) Stop: 07/12/22 (units (unknown) date) 18:28 unknown) (unknown) (no (unknown) (unknown) Stop: 07/12/22 (units (unknown) date) 18:31 unknown) (unknown) (no (unknown) (unknown) Stop: 07/12/22 (units (unknown) date) 19:25 unknown) (unknown) (no (unknown) (unknown) Substance Use (units ( unknown) date) Type: does not use unknown) (unknown) (no (unknown) (unknown) Surgical History (units (unknown) date) (Reviewed 07/12/22 unknown) @ 17:50 by LYUDMILA Do) (unknown) (no (unknown) (unknown) Tactile (units (unkno wn) date) disturbances ?> 1 = unknown) Very mild itching, pin and needles, burning, or (unknown) (no (unknown) (unknown) Temperature 97.2 F (units (unknown) date) L 07/12/22 16:10 unknown) (unknown) (no (unknown) (unknown) Temperature 97.2 F (units (unknown) date) L unknown) (unknown) (no (unknown) (unknown) Thiamine HCl (units (u nknown) date) (Thiamine 100 Mg unknown) Tablet) 100 mg PO NOW ONE (unknown) (no (unknown) (unknown) Thiamine HCl 200 (units (unknown) date) mg/ Sodium unknown) (Chloride) 102 mls @ 408 mls/hr IV NOW ONE (unknown) (no (unknown) (unknown) This is a (units (unkn own) date) 31-year-old female unknown) with history of alcohol abuse and appears to have (unknown) (no (unknown) (unknown) Thyroid (units (unkno wn) date) Stimulating Hormone unknown) Stat (unknown) (no (unknown) (unknown) Time Seen by (units (u nknown) date) Provider: 07/12/22 unknown) 17:05 (unknown) (no (unknown) (unknown) Total Bilirubin (units (unknown) date) (0.2-1.3) mg/dL unknown) (unknown) (no (unknown) (unknown) Total Bilirubin (units (unknown) date) 0.4 (0.2-1.3) mg/dL unknown) (unknown) (no (unknown) (unknown) Total Protein (units ( unknown) date) (6.3-8.2) g/dL unknown) (unknown) (no (unknown) (unknown) Total Protein 7.3 (units (unknown) date) (6.3-8.2) g/dL unknown) (unknown) (no (unknown) (unknown) Tremor ?> 1 = Not (units (unknown) date) visible, but can be unknown) felt fingertip to fingertip (unknown) (no (unknown) (unknown) U Benzodiazepines (units (unknown) date) Scrn (Negative) unknown) (unknown) (no (unknown) (unknown) U Benzodiazepines (units (unknown) date) Scrn Negative unknown) (Negative) (unknown) (no (unknown) (unknown) U Marijuana (THC) (units (unknown) date) Screen (Negative) unknown) (unknown) (no (unknown) (unknown) U Marijuana (THC) (units (unknown) date) Screen Negative unknown) (Negative) (unknown) (no (unknown) (unknown) U Methamphetamines (units (unknown) date) Scrn (Negative) unknown) (unknown) (no (unknown) (unknown) U Methamphetamines (units (unknown) date) Scrn Negative unknown) (Negative) (unknown) (no (unknown) (unknown) U Opiates 300ng/mL (units (unknown) date) cut (Negative) unknown) (unknown) (no (unknown) (unknown) U Opiates 300ng/mL (units (unknown) date) cut Negative unknown) (Negative) (unknown) (no (unknown) (unknown) U Tricyclic (units (un known) date) Antidepress unknown) (Negative) (unknown) (no (unknown) (unknown) U Tricyclic (units (un known) date) Antidepress unknown) Negative (Negative) (unknown) (no (unknown) (unknown) Ur Amphetamines (units (unknown) date) Screen (Negative) unknown) (unknown) (no (unknown) (unknown) Ur Amphetamines (units (unknown) date) Screen Negative unknown) (Negative) (unknown) (no (unknown) (unknown) Ur Barbiturates (units (unknown) date) Screen (Negative) unknown) (unknown) (no (unknown) (unknown) Ur Barbiturates (units (unknown) date) Screen Negative unknown) (Negative) (unknown) (no (unknown) (unknown) Ur Culture (units (unk nown) date) Indicated? Specimen unknown) cultured (unknown) (no (unknown) (unknown) Ur Culture (units (unk nown) date) Indicated? unknown) (unknown) (no (unknown) (unknown) Ur MDMA Scrn (units (u nknown) date) (Ecstasy) unknown) (Negative) (unknown) (no (unknown) (unknown) Ur MDMA Scrn (units (u nknown) date) (Ecstasy) Negative unknown) (Negative) (unknown) (no (unknown) (unknown) Ur Oxycodone (units (u nknown) date) Screen (Negative) unknown) (unknown) (no (unknown) (unknown) Ur Oxycodone (units (u nknown) date) Screen Negative unknown) (Negative) (unknown) (no (unknown) (unknown) Ur Phencyclidine (units (unknown) date) Scrn (Negative) unknown) (unknown) (no (unknown) (unknown) Ur Phencyclidine (units (unknown) date) Scrn Negative unknown) (Negative) (unknown) (no (unknown) (unknown) Ur Squamous Epith (units (unknown) date) Cells (0-5/HPF) unknown) (unknown) (no (unknown) (unknown) Ur Squamous Epith (units (unknown) date) Cells 1-5 /hpf unknown) (0-5/HPF) (unknown) (no (unknown) (unknown) Urine Bacteria (units (unknown) date) (None) unknown) (unknown) (no (unknown) (unknown) Urine Bacteria (units (unknown) date) Many (>30) H (None) unknown) (unknown) (no (unknown) (unknown) Urine Cocaine (units ( unknown) date) Screen (Negative) unknown) (unknown) (no (unknown) (unknown) Urine Cocaine (units ( unknown) date) Screen Negative unknown) (Negative) (unknown) (no (unknown) (unknown) Urine Culture Stat (units (unknown) date) unknown) (unknown) (no (unknown) (unknown) Urine Dip (units (unkn own) date) unknown) (unknown) (no (unknown) (unknown) Urine Drug Screen, (units (unknown) date) Rapid Stat unknown) (unknown) (no (unknown) (unknown) Urine Methadone (units (unknown) date) Screen (Negative) unknown) (unknown) (no (unknown) (unknown) Urine Methadone (units (unknown) date) Screen Negative unknown) (Negative) (unknown) (no (unknown) (unknown) Urine Microscopic (units (unknown) date) Stat unknown) (unknown) (no (unknown) (unknown) Urine RBC (units (unkn own) date) (0-5/HPF) unknown) (unknown) (no (unknown) (unknown) Urine RBC 1-5/hpf (units (unknown) date) (0-5/HPF) unknown) (unknown) (no (unknown) (unknown) Urine Specific (units (unknown) date) [place] 1.015 unknown) (unknown) (no (unknown) (unknown) Urine WBC (units (unkn own) date) (0-5/HPF) unknown) (unknown) (no (unknown) (unknown) Urine WBC 1-5/hpf (units (unknown) date) (0-5/HPF) unknown) (unknown) (no (unknown) (unknown) Urine microscopy (units (unknown) date) with many bacteria, unknown) pending for culture, will treat for acute (unknown) (no (unknown) (unknown) Visual (units (unkno wn) date) disturbances ?> 1 = unknown) Very mild sensitivity (unknown) (no (unknown) (unknown) Vital Signs - 8 hr (units (unknown) date) unknown) (unknown) (no (unknown) (unknown) Vital Signs (units (un known) date) unknown) (unknown) (no (unknown) (unknown) Vital signs: (units (u nknown) date) unknown) (unknown) (no (unknown) (unknown) WBC (4.5-11.0) (units (unknown) date) X103/uL unknown) (unknown) (no (unknown) (unknown) WBC 3.3 L (units (unkn own) date) (4.5-11.0) X103/uL [...] unknown) tablet (unknown) (no (unknown) (unknown) alcohol in 300s, (units (unknown) date) she was last here unknown) in the emergency department in May of (unknown) (no (unknown) (unknown) alcohol intake (units (unknown) date) frequency: 3 or unknown) more drinks per day (unknown) (no (unknown) (unknown) alcohol intake: (units (unknown) date) former unknown) (unknown) (no (unknown) (unknown) and below (units (unkn own) date) unknown) (unknown) (no (unknown) (unknown) and cooperative (units (unknown) date) unknown) (unknown) (no (unknown) (unknown) arrhythmia, or (units (unknown) date) acute ischemic unknown) changes. (unknown) (no (unknown) (unknown) at extension and (units (unknown) date) states that she unknown) feels symptoms of alcohol withdrawal. Denies (unknown) (no (unknown) (unknown) bpm with rightward (units (unknown) date) axis and normal unknown) intervals. No STEMI, ST segment changes, (unknown) (no (unknown) (unknown) current (units (unkno wn) date) occupational unknown) exposures/hazards: Yes (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 with Pandemic ) (unknown) (no (unknown) (unknown) cystitis without (units (unknown) date) hematuria unknown) (unknown) (no (unknown) (unknown) cystitis (units (unkno wn) date) unknown) (unknown) (no (unknown) (unknown) cystitis, she is (units (unknown) date) p.o. tolerant, unknown) still pending lab work (unknown) (no (unknown) (unknown) deliver since it (units (unknown) date) is after 17:00 and unknown) the diet order was ordered at 17:30. Samira (unknown) (no (unknown) (unknown) detox as well. (units (unknown) date) unknown) (unknown) (no (unknown) (unknown) diarrhea or (units (un known) date) current stool unknown) changes. (unknown) (no (unknown) (unknown) diphenhydramine (units (unknown) [...] mg unknown) capsule (unknown) (no (unknown) (unknown) draw her labs (units ( unknown) date) unknown) (unknown) (no (unknown) (unknown) education level: (units (unknown) date) college unknown) (unknown) (no (unknown) (unknown) electrolyte (units (un known) date) abnormalities. unknown) (unknown) (no (unknown) (unknown) emergency (units (unkn own) date) department on unknown) 06/18/2022 and a few days prior to that with a blood (unknown) (no (unknown) (unknown) renee/zoroastrianism: (units (unknown) date) Buddhist unknown) (unknown) (no (unknown) (unknown) fluid, EtOH, and (units (unknown) date) CIWA, ordered 2 mg unknown) of IV lorazepam for patient's symptoms, (unknown) (no (unknown) (unknown) for alcohol (units (un known) date) related complaints unknown) through 2019, and she presented to the [facility] (unknown) (no (unknown) (unknown) from social work (units (unknown) date) is aware and unknown) pending her lab work to arrange for inpatient (unknown) (no (unknown) (unknown) her urine (units (unkn own) date) microscopy came unknown) back positive for many bacteria, will treat for acute (unknown) (no (unknown) (unknown) household members: (units (unknown) date) spouse and children unknown) (unknown) (no (unknown) (unknown) hydrocodone (units (un known) date) [HYDROCODONE] unknown) AdvReac Unknown VOMITING Verified 07/12/22 16:18 (unknown) (no (unknown) (unknown) ibuprofen 600 mg (units (unknown) date) Tablet unknown) (unknown) (no (unknown) (unknown) ibuprofen 600 mg (units (unknown) date) tablet 600 mg PO unknown) Q6HR PRN Pain, Mild 07/04/20 (unknown) (no (unknown) (unknown) injuries, denies (units (unknown) date) chance of unknown) , denies any other ingestions, is pleasant, (unknown) (no (unknown) (unknown) intoxicated (units (un known) date) endorses symptoms unknown) of alcohol withdrawal. (unknown) (no (unknown) (unknown) intoxicated, (units (un known) date) pleasant, unknown) interactive and comfortable although active and fidgeting (unknown) (no (unknown) (unknown) is 338, COVID PCR (units (unknown) date) was negative, drug unknown) screen is negative for all tested agents, (unknown) (no (unknown) (unknown) limited history (units (unknown) date) currently due to unknown) intoxication. She states that she is recently (unknown) (no (unknown) (unknown) lorazepam at 2 mg (units (unknown) date) for this. unknown) (unknown) (no (unknown) (unknown) marital status: (units (unknown) date) unknown) (unknown) (no (unknown) (unknown) metoclopramide (units (unknown) date) Allergy Mild unknown) RASH/HIVES Verified 07/12/22 16:18 (unknown) (no (unknown) (unknown) mild anemia but (units (unknown) date) improved from her unknown) prior with H+H of 11.5 and 35.3, no evidence (unknown) (no (unknown) (unknown) nausea vomiting or (units (unknown) date) abdominal pain at unknown) this time. Denies any vomiting home or (unknown) (no (unknown) (unknown) number of (units (unkn own) date) children: 1 unknown) (unknown) (no (unknown) (unknown) numbness (units (unkno wn) date) unknown) (unknown) (no (unknown) (unknown) occupational (units (u nknown) date) status: employed unknown) (unknown) (no (unknown) (unknown) of bleeding (units (un known) date) anywhere, CMP unknown) (unknown) (no (unknown) (unknown) ondansetron 4 [...] tablet,disintegrati unknown) ng (unknown) (no (unknown) (unknown) ordered p.o. (units (u nknown) date) Ativan for her unknown) symptoms and ask our into call lab to come up and (unknown) (no (unknown) (unknown) prenat.vits,otis,mi (units (unknown) date) [id number] 1 tab unknown) PO DAILY 12/30/19 07/03/20 (unknown) (no (unknown) (unknown) prenat.vits,otis,mi (units (unknown) date) [id number] Tablet unknown) (unknown) (no (unknown) (unknown) relapsed due to a (units (unknown) date) divorce with her unknown) . 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 She is currently (unknown) (no (unknown) (unknown) significant tremor (units (unknown) date) or tongue unknown) fasciculation, she has a mild tremor with her arms (unknown) (no (unknown) (unknown) social work and (units (unknown) date) orders are pending unknown) (unknown) (no (unknown) (unknown) special renee (units ( unknown) date) needs: No unknown) (unknown) (no (unknown) (unknown) substance abuse, (units (unknown) date) alcohol unknown) intoxication, psychosis, mood disorder, depression (unknown) (no (unknown) (unknown) substance use (units ( unknown) date) type: does not use unknown) (unknown) (no (unknown) (unknown) tablet vomiting (units (unknown) date) #14 tabs unknown) (unknown) (no (unknown) (unknown) tablet vomiting (units (unknown) date) #20 tabs unknown) (unknown) (no (unknown) (unknown) tablet vomiting (units (unknown) date) #30 tabs unknown) (unknown) (no (unknown) (unknown) tenderness or (units ( unknown) date) exquisite unknown) tenderness with exam. (unknown) (no (unknown) (unknown) that she drinks (units (unknown) date) vodka and admits to unknown) drinking heavily today, states that she took (unknown) (no (unknown) (unknown) the bottle upside (units (unknown) date) down and started unknown) checking from it. She denies any recent (unknown) (no (unknown) (unknown) thyroid studies (units (unknown) date) are still pending. unknown) No significant findings to her CMP. No (unknown) (no (unknown) (unknown) tramadol 50 mg (units (unknown) date) tablet 50 mg PO Q6H unknown) PRN pain #10 tabs 06/12/22 (unknown) (no (unknown) (unknown) tramadol 50 mg (units (unknown) date) tablet unknown) (unknown) (no (unknown) (unknown) tremors, no (units (un known) date) tachycardia, her unknown) CIWA is currently 10, ordered another p.o. dose of (unknown) (no (unknown) (unknown) well as prior (units ( unknown) date) records if unknown) available. (unknown) (no (unknown) (unknown) wheezing, stridor, (units (unknown) date) or abnormal breath unknown) sounds. No retractions or tachypnea. Result panel 2353 (unknown) (no (unknown) (unknown) (no value) (units (unk nown) date) unknown) (unknown) (no (unknown) (unknown) (1-3) #30 tabs (units (unknown) date) unknown) (unknown) (no (unknown) (unknown) (Benadryl) caps (units (unknown) date) unknown) (unknown) (no (unknown) (unknown) (Colace) (units (unkno wn) date) unknown) (unknown) (no (unknown) (unknown) (Tylenol) (units (unkn own) date) unknown) (unknown) (no (unknown) (unknown) [id number] (units (unkn own) date) unknown) (unknown) (no (unknown) (unknown) 07/12/22 07/12/22 (units (unknown) date) 07/12/22 unknown) Range/Units (unknown) (no (unknown) (unknown) 07/12/22 07/12/22 (units (unknown) date) Range/Units unknown) (unknown) (no (unknown) (unknown) 07/12/22 16:28 (units (unknown) date) unknown) (unknown) (no (unknown) (unknown) 07/12/22 16:32 (units (unknown) date) unknown) (unknown) (no (unknown) (unknown) 07/12/22 18:28 (units (unknown) date) unknown) (unknown) (no (unknown) (unknown) 07/12/22 19:15 (units (unknown) date) unknown) (unknown) (no (unknown) (unknown) 07/12/22 (units (unkno wn) date) unknown) (unknown) (no (unknown) (unknown) 1 tab PO DAILY (units (unknown) date) unknown) (unknown) (no (unknown) (unknown) 100 mg PO BID Qty: (units (unknown) date) 30 0RF unknown) (unknown) (no (unknown) (unknown) 16:10 07/12/22 (units (unknown) date) unknown) (unknown) (no (unknown) (unknown) 16:32 16:32 16:32 (units (unknown) date) unknown) (unknown) (no (unknown) (unknown) 1836 patient still (units (unknown) date) does not have an unknown) IV, has not received any IV fluid her (unknown) (no (unknown) (unknown) 18:53 (units (unkno wn) date) unknown) (unknown) (no (unknown) (unknown) 1899 still no IV, (units (unknown) date) patient is p.o. unknown) challenging, she received her p.o. lorazepam, (unknown) (no (unknown) (unknown) 1929, patient now (units (unknown) date) feels depressed, unknown) she is lying in bed, feeling bad, has (unknown) (no (unknown) (unknown) 19:15 19:15 (units (un known) date) unknown) (unknown) (no (unknown) (unknown) 1999 patient is (units (unknown) date) feeling better now, unknown) her lab work is starting to return and ETOH (unknown) (no (unknown) (unknown) 2002 patient (units (u nknown) date) requests to take unknown) her home dosing of Seroquel 300 mg, this is (unknown) (no (unknown) (unknown) 2022 with similar (units (unknown) date) symptoms. She comes unknown) in complaining of needing help, states (unknown) (no (unknown) (unknown) 25 mg PO [...] Qty: 30 0RF (unknown) (no (unknown) (unknown) 9 points (units (unkno wn) date) unknown) (unknown) (no (unknown) (unknown) ALT (<35) IU/L (units (unknown) date) unknown) (unknown) (no (unknown) (unknown) ALT 21 (<35) IU/L (units (unknown) date) unknown) (unknown) (no (unknown) (unknown) AST (14-36) IU/L (units (unknown) date) unknown) (unknown) (no (unknown) (unknown) AST 67 H (14-36) (units (unknown) date) IU/L unknown) (unknown) (no (unknown) (unknown) Acetaminophen < 10 (units (unknown) date) (10-30) ug/mL unknown) (unknown) (no (unknown) (unknown) Acetaminophen (units ( unknown) date) (10-30) ug/mL unknown) (unknown) (no (unknown) (unknown) Acetaminophen Stat (units (unknown) date) unknown) (unknown) (no (unknown) (unknown) Age/Sex: 31 / F (units (unknown) date) unknown) (unknown) (no (unknown) (unknown) Agitation ?> 2 = (units (unknown) date) (More severe unknown) symptoms) (unknown) (no (unknown) (unknown) Albumin (3.5-5.0) (units (unknown) date) g/dL unknown) (unknown) (no (unknown) (unknown) Albumin 4.3 (units (un known) date) (3.5-5.0) g/dL unknown) (unknown) (no (unknown) (unknown) Albumin/Globulin (units (unknown) date) Ratio (1.0-2.8) unknown) (unknown) (no (unknown) (unknown) Albumin/Globulin (units (unknown) date) Ratio 1.4 (1.0-2.8) unknown) (unknown) (no (unknown) (unknown) Alcohol use (units (un known) date) disorder, Acute unknown) cystitis (unknown) (no (unknown) (unknown) Alcoholism (units (unk nown) date) unknown) (unknown) (no (unknown) (unknown) Alkaline (units (unkno wn) date) Phosphatase unknown) (38-126) U/L (unknown) (no (unknown) (unknown) Alkaline (units (unkno wn) date) Phosphatase 98 unknown) (38-126) U/L (unknown) (no (unknown) (unknown) Allergies (units (unkn own) date) unknown) (unknown) (no (unknown) (unknown) Allergy/AdvReac (units (unknown) date) Type Severity unknown) Reaction Status Date / Time (unknown) (no (unknown) (unknown) Anemia (-2018) (units (unknown) date) unknown) (unknown) (no (unknown) (unknown) Anxiety ?> 2 = (units (unknown) date) (More severe unknown) symptoms) (unknown) (no (unknown) (unknown) Auditory (units (unkno wn) date) disturbances ?> 1 = unknown) Very mild harshness or ability to frighten (unknown) (no (unknown) (unknown) BUN (7-17) mg/dL (units (unknown) date) unknown) (unknown) (no (unknown) (unknown) BUN 9 (7-17) mg/dL (units (unknown) date) unknown) (unknown) (no (unknown) (unknown) BUN/Creatinine (units (unknown) date) Ratio (6-22) unknown) (unknown) (no (unknown) (unknown) BUN/Creatinine (units (unknown) date) Ratio 11.0 (6-22) unknown) (unknown) (no (unknown) (unknown) Baso # (Auto) (units ( unknown) date) (0-100) /uL unknown) (unknown) (no (unknown) (unknown) Baso # (Auto) 0 (units (unknown) date) (0-100) /uL unknown) (unknown) (no (unknown) (unknown) Baso % (Auto) (units ( unknown) date) (0-2) % unknown) (unknown) (no (unknown) (unknown) Baso % (Auto) 0.9 (units (unknown) date) (0-2) % unknown) (unknown) (no (unknown) (unknown) Bedside Urine (units ( unknown) date) Bilirubin - unknown) Negative (unknown) (no (unknown) (unknown) Bedside Urine (units ( unknown) date) Glucose Negative unknown) (unknown) (no (unknown) (unknown) Bedside Urine (units ( unknown) date) Ketone - Negative unknown) (unknown) (no (unknown) (unknown) Bedside Urine (units ( unknown) date) Leukocytes - unknown) Negative (unknown) (no (unknown) (unknown) Bedside Urine (units ( unknown) date) Nitrite + Positive unknown) (unknown) (no (unknown) (unknown) Bedside Urine (units ( unknown) date) Occult Blood - unknown) Negative (unknown) (no (unknown) (unknown) Bedside Urine (units ( unknown) date) Protein - Negative unknown) (unknown) (no (unknown) (unknown) Bedside Urine (units ( unknown) date) Urobilinogen - unknown) Negative (unknown) (no (unknown) (unknown) Bedside Urine pH (units (unknown) date) 6.0 unknown) (unknown) (no (unknown) (unknown) Blood Pressure (units (unknown) date) 112/62 07/12/22 unknown) 16:10 (unknown) (no (unknown) (unknown) Blood Pressure (units (unknown) date) 112/62 unknown) (unknown) (no (unknown) (unknown) Blood Pressure (units (unknown) date) [Left Arm] 100/59 L unknown) (unknown) (no (unknown) (unknown) CIWA is now worse (units (unknown) date) and she has unknown) tremors, anxiety is worsening and agitation, (unknown) (no (unknown) (unknown) CIWA-Ar for (units (un known) date) Alcohol Withdrawal unknown) from [facility] on 07/12/2022 (unknown) (no (unknown) (unknown) COVID19 -Nasal (units (unknown) date) RAPID/Pre-Proc Stat unknown) (unknown) (no (unknown) (unknown) Calcium (8.4-10.2) (units (unknown) date) mg/dL unknown) (unknown) (no (unknown) (unknown) Calcium 8.0 L (units ( unknown) date) (8.4-10.2) mg/dL unknown) (unknown) (no (unknown) (unknown) Carbon Dioxide (units (unknown) date) (22-32) mmol/L unknown) (unknown) (no (unknown) (unknown) Carbon Dioxide 23 (units (unknown) date) (22-32) mmol/L unknown) (unknown) (no (unknown) (unknown) Cardiovascular: (units (unknown) date) regular rate and unknown) rhythm, no peripheral edema, warm extremities (unknown) (no (unknown) (unknown) Cephalexin HCl (units (unknown) date) (Cephalexin 250 Mg unknown) Capsule) 500 mg PO Q6H SANDY (unknown) (no (unknown) (unknown) Chief Complaint: (units (unknown) date) Alcohol unknown) intoxication, seeking detox (unknown) (no (unknown) (unknown) Chief Complaint: (units (unknown) date) Toxicology Problem unknown) (unknown) (no (unknown) (unknown) Chloride (98-107) (units (unknown) date) mmol/L unknown) (unknown) (no (unknown) (unknown) Chloride 104 (units (u nknown) date) (98-107) mmol/L unknown) (unknown) (no (unknown) (unknown) Clinical (units (unkno wn) date) Impression: unknown) (unknown) (no (unknown) (unknown) Clinical decision (units (unknown) date) rules or scores unknown) evaluated: CIWA of 9 at 1753 (unknown) (no (unknown) (unknown) Complete Blood (units (unknown) date) Count AUTO DIFF unknown) Stat (unknown) (no (unknown) (unknown) Comprehensive (units ( unknown) date) Metabolic Panel unknown) Stat (unknown) (no (unknown) (unknown) Consult to [facility] - (units (unknown) date) 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 unknown) Stat (unknown) (no (unknown) (unknown) Course of care: (units (unknown) date) Patient is a unknown) difficult IV stick, ordered IV with lab work, (unknown) (no (unknown) (unknown) Course (units (unkno wn) date) unknown) (unknown) (no (unknown) (unknown) Creatinine (units (unk nown) date) (0.52-1.04) mg/dL unknown) (unknown) (no (unknown) (unknown) Creatinine 0.82 (units (unknown) date) (0.52-1.04) mg/dL unknown) (unknown) (no (unknown) (unknown) : 1990 (units (unknown) date) Acct:[id number] unknown) (unknown) (no (unknown) (unknown) Date of Service: (units (unknown) date) 07/12/22 unknown) (unknown) (no (unknown) (unknown) Departure (units (unkn own) date) unknown) (unknown) (no (unknown) (unknown) Differential (units (u nknown) date) diagnoses include unknown) but are not limited to: Alcohol withdrawal, (unknown) (no (unknown) (unknown) Discharge Plan (units (unknown) date) unknown) (unknown) (no (unknown) (unknown) Discontinued (units (u nknown) date) Medications unknown) (unknown) (no (unknown) (unknown) Documented By: KB (units (unknown) date) unknown) (unknown) (no (unknown) (unknown) Documented By: OW (units (unknown) date) unknown) (unknown) (no (unknown) (unknown) ECG Data (units (unkno wn) date) unknown) (unknown) (no (unknown) (unknown) ED Orders (units (unkn own) date) unknown) (unknown) (no (unknown) (unknown) EKG independently (units (unknown) date) reviewed by myself unknown) at 1830 reveals normal sinus rhythm at 72 (unknown) (no (unknown) (unknown) EKG-12 Lead Stat (units (unknown) date) unknown) (unknown) (no (unknown) (unknown) ER Physician: (units ( unknown) date) Juliet Paz unknown) RECREATION PROGRAMMER (unknown) (no (unknown) (unknown) Emergency Report (units (unknown) date) unknown) (unknown) (no (unknown) (unknown) Eos # (Auto) (units (u nknown) date) (0-450) /uL unknown) (unknown) (no (unknown) (unknown) Eos # (Auto) 0 (units (unknown) date) (0-450) /uL unknown) (unknown) (no (unknown) (unknown) Eos % (Auto) (2-4) (units (unknown) date) % unknown) (unknown) (no (unknown) (unknown) Eos % (Auto) 0.3 L (units (unknown) date) (2-4) % unknown) (unknown) (no (unknown) (unknown) Esterase (units (unkno wn) date) unknown) (unknown) (no (unknown) (unknown) Estimated GFR > 60 (units (unknown) date) (>60) mL/min unknown) (unknown) (no (unknown) (unknown) Estimated GFR (units ( unknown) date) (>60) mL/min unknown) (unknown) (no (unknown) (unknown) Ethanol (ETOH) (units (unknown) date) Stat unknown) (unknown) (no (unknown) (unknown) Ethyl Alcohol ( - (units (unknown) date) 10) mg/dL unknown) (unknown) (no (unknown) (unknown) Ethyl Alcohol 338 (units (unknown) date) H ( - 10) mg/dL unknown) (unknown) (no (unknown) (unknown) Exam Narrative: (units (unknown) date) unknown) (unknown) (no (unknown) (unknown) Exam (units (unkno wn) date) unknown) (unknown) (no (unknown) (unknown) Family History (units (unknown) date) (Reviewed 07/12/22 unknown) @ 17:50 by LYUDMILA Do) (unknown) (no (unknown) (unknown) Family/Other (units (u nknown) date) Alcoholism unknown) (unknown) (no (unknown) (unknown) Family/Other (units (u nknown) date) Diabetes mellitus unknown) (unknown) (no (unknown) (unknown) Father Alcoholism (units (unknown) date) unknown) (unknown) (no (unknown) (unknown) Tonia Schneider MD (units (unknown) date) [Primary Care unknown) Provider] (unknown) (no (unknown) (unknown) Folic Acid (Folic (units (unknown) date) Acid 1 Mg Tablet) 1 unknown) mg PO DAILY SANDY (unknown) (no (unknown) (unknown) Free T4, Direct (units (unknown) date) Thyroxine Stat unknown) (unknown) (no (unknown) (unknown) GI: abdomen soft, (units (unknown) date) nontender to unknown) palpation, nondistended, without masses, rebound (unknown) (no (unknown) (unknown) General (units (unkno wn) date) unknown) (unknown) (no (unknown) (unknown) General: (units (unkno wn) date) cooperative, unknown) comfortable, in no acute distress, well groomed, appears (unknown) (no (unknown) (unknown) Globulin (1.7-4.1) (units (unknown) date) g/dL unknown) (unknown) (no (unknown) (unknown) Globulin 3.0 (units (u nknown) date) (1.7-4.1) g/dL unknown) (unknown) (no (unknown) (unknown) Glucose (70-100) (units (unknown) date) mg/dL unknown) (unknown) (no (unknown) (unknown) Glucose 111 H (units ( unknown) date) (70-100) mg/dL [...] extraction () unknown) (unknown) (no (unknown) (unknown) HEENT: symmetrical (units (unknown) date) facial expressions, unknown) dry mucous membranes (unknown) (no (unknown) (unknown) HPI - Alcohol (units ( unknown) date) unknown) (unknown) (no (unknown) (unknown) HPI narrative: (units (unknown) date) unknown) (unknown) (no (unknown) (unknown) Hct (36-46) % (units ( unknown) date) unknown) (unknown) (no (unknown) (unknown) Hct 35.3 L (36-46) (units (unknown) date) % unknown) (unknown) (no (unknown) (unknown) Headache/fullness (units (unknown) date) in head ?> 1 = Very unknown) mild (unknown) (no (unknown) (unknown) Hgb (12.0-16.0) (units (unknown) date) g/dL unknown) (unknown) (no (unknown) (unknown) Hgb 11.5 L (units (unk nown) date) (12.0-16.0) g/dL unknown) (unknown) (no (unknown) (unknown) History of Present (units (unknown) date) Illness unknown) (unknown) (no (unknown) (unknown) Home Medications (units (unknown) date) unknown) (unknown) (no (unknown) (unknown) I have (units (unkno wn) date) independently unknown) reviewed the patient's vital signs and nursing notes as (unknown) (no (unknown) (unknown) INPUTS: (units (unkno wn) date) unknown) (unknown) (no (unknown) (unknown) Independent (units (un known) date) historian: Patient unknown) (unknown) (no (unknown) (unknown) Initial Vital (units ( unknown) date) Signs unknown) (unknown) (no (unknown) (unknown) Initial Vital (units ( unknown) date) Signs: unknown) (unknown) (no (unknown) (unknown) Insomnia (units (unkno wn) date) unknown) (unknown) (no (unknown) (unknown) Interpretation: (units (unknown) date) unknown) (unknown) (no (unknown) (unknown) [facility] (units (unknown) date) [address] unknown) [place] [address] (unknown) (no (unknown) (unknown) Lab Data (units (unkno wn) date) unknown) (unknown) (no (unknown) (unknown) Lab Results (units (un known) date) unknown) (unknown) (no (unknown) (unknown) Labs: (units (unkno wn) date) unknown) (unknown) (no (unknown) (unknown) Last Admin: (units (un known) date) 07/12/22 18:39 unknown) Dose: 4 mg (unknown) (no (unknown) (unknown) Last Admin: (units (un known) date) 07/12/22 18:40 unknown) Dose: 1 mg (unknown) (no (unknown) (unknown) Last Admin: (units (un known) date) 07/12/22 18:56 unknown) Dose: Not Given (unknown) (no (unknown) (unknown) Lorazepam (units (unkn own) date) (Lorazepam 0.5 Mg unknown) Tablet) 1 mg PO NOW ONE (unknown) (no (unknown) (unknown) Lorazepam (units (unkn own) date) (Lorazepam 0.5 Mg unknown) Tablet) 2 mg PO NOW ONE (unknown) (no (unknown) (unknown) Lorazepam (units (unkn own) date) (Lorazepam 2 Mg/Ml unknown) Inj) 2 mg IV NOW ONE (unknown) (no (unknown) (unknown) Lymph # (Auto) (units (unknown) date) (5068-5450) /uL unknown) (unknown) (no (unknown) (unknown) Lymph # (Auto) (units (unknown) date) 1700 (2948-7070) unknown) /uL (unknown) (no (unknown) (unknown) Lymph % (Auto) (units (unknown) date) (25-40) % unknown) (unknown) (no (unknown) (unknown) Lymph % (Auto) (units (unknown) date) 50.6 H (25-40) % unknown) (unknown) (no (unknown) (unknown) MCH (26-34) PG (units (unknown) date) unknown) (unknown) (no (unknown) (unknown) MCH 26.0 (26-34) (units (unknown) date) PG unknown) (unknown) (no (unknown) (unknown) MCHC (30-36) % (units (unknown) date) unknown) (unknown) (no (unknown) (unknown) MCHC 32.7 (30-36) (units (unknown) date) % unknown) (unknown) (no (unknown) (unknown) MCV (80-100) fL (units (unknown) date) unknown) (unknown) (no (unknown) (unknown) MCV 79.5 L (units (unk nown) date) (80-100) fL unknown) (unknown) (no (unknown) (unknown) MDM - Alcohol (units ( unknown) date) unknown) (unknown) (no (unknown) (unknown) MDM Narrative (units ( unknown) date) unknown) (unknown) (no (unknown) (unknown) MIPS: This (units (unk nown) date) encounter doesn't unknown) have any diagnosis' associated with MIPS criteria. (unknown) (no (unknown) (unknown) MSK: moves all (units (unknown) date) extremities, unknown) neurovascularly intact, no weakness, normal tone no (unknown) (no (unknown) (unknown) Medical History (units (unknown) date) (Reviewed 07/12/22 unknown) @ 17:50 by Juliet Paz RECREATION PROGRAMMER) (unknown) (no (unknown) (unknown) Medical decision (units (unknown) date) making narrative: unknown) (unknown) (no (unknown) (unknown) Medication (units (unk nown) date) Instructions unknown) Recorded Confirmed (unknown) (no (unknown) (unknown) Medication (units (unk nown) date) Instructions unknown) Recorded (unknown) (no (unknown) (unknown) Menometrorrhagia (units (unknown) date) unknown) (unknown) (no (unknown) (unknown) Mode of arrival: (units (unknown) date) Ambulatory unknown) (unknown) (no (unknown) (unknown) Yates # (Auto) (units ( unknown) date) (0-900) /uL unknown) (unknown) (no (unknown) (unknown) Yates # (Auto) 100 (units (unknown) date) (0-900) /uL unknown) (unknown) (no (unknown) (unknown) Yates % (Auto) (units ( unknown) date) (3-14) % unknown) (unknown) (no (unknown) (unknown) Yates % (Auto) 2.7 (units (unknown) date) L (3-14) % unknown) (unknown) (no (unknown) (unknown) Mother Diabetes (units (unknown) date) mellitus unknown) (unknown) (no (unknown) (unknown) Narrative (units (unkn own) date) unknown) (unknown) (no (unknown) (unknown) Nausea/vomiting ?> (units (unknown) date) 0 = No nausea and unknown) no vomiting (unknown) (no (unknown) (unknown) Neuro: normal (units ( unknown) date) speech and unknown) cognition, A+O x3, ambulatory, clear speech (unknown) (no (unknown) (unknown) Neut # (Auto) (units ( unknown) date) (9061-1666) /uL unknown) (unknown) (no (unknown) (unknown) Neut # (Auto) 1500 (units (unknown) date) (4166-6053) /uL unknown) (unknown) (no (unknown) (unknown) Neut % (Auto) (units ( unknown) date) (50-75) % unknown) (unknown) (no (unknown) (unknown) Neut % (Auto) 45.5 (units (unknown) date) L (50-75) % unknown) (unknown) (no (unknown) (unknown) No Action (units (unkn own) date) unknown) (unknown) (no (unknown) (unknown) Obesity (units (unkno wn) date) unknown) (unknown) (no (unknown) (unknown) Ondansetron HCl (units (unknown) date) (Ondansetron 4 Mg unknown) Odt) 4 mg SL NOW ONE (unknown) (no (unknown) (unknown) Ondansetron HCl (units (unknown) date) (Ondansetron 4 Mg/2 unknown) Ml Inj) 4 mg IV Q6HR PRN (unknown) (no (unknown) (unknown) Ordered: (units (unkno wn) date) unknown) (unknown) (no (unknown) (unknown) Orders (units (unkno wn) date) unknown) (unknown) (no (unknown) (unknown) Orientation/cloudi (units (unknown) date) ng of sensorium ?> unknown) 0 = Oriented, can do serial additions (unknown) (no (unknown) (unknown) Overweight (units (unk nown) date) unknown) (unknown) (no (unknown) (unknown) Oxygen Delivery (units (unknown) date) Method Room Air unknown) 07/12/22 16:10 (unknown) (no (unknown) (unknown) Oxygen Delivery (units (unknown) date) Method Room Air unknown) Room Air (unknown) (no (unknown) (unknown) PRN Reason: Nausea (units (unknown) date) And Vomiting unknown) (unknown) (no (unknown) (unknown) Paroxysmal sweats (units (unknown) date) ?> 0 = No sweat unknown) visible (unknown) (no (unknown) (unknown) Patient (units (unkno wn) date) Disposition: Xfer unknown[facility] (no (unknown) (unknown) Patient History (units (unknown) date) unknown) (unknown) (no (unknown) (unknown) Patient: (units (unkno wn) date) Sarah Connors R unknown) MR#: M (unknown) (no (unknown) (unknown) Patients with (units ( unknown) date) scores >= may unknown) require medication for withdrawal. (unknown) (no (unknown) (unknown) Pertinent lab (units ( unknown) date) findings reviewed: unknown) CBC is pertinent for mild leukopenia of 3.3, (unknown) (no (unknown) (unknown) Plt Count (units (unkn own) date) (150-400) X103/uL unknown) (unknown) (no (unknown) (unknown) Plt Count 226 (units ( unknown) date) (150-400) X103/uL unknown) (unknown) (no (unknown) (unknown) Point of Care (units ( unknown) date) Testing unknown) (unknown) (no (unknown) (unknown) Potassium (units (unkn own) date) (3.4-5.1) mmol/L unknown) (unknown) (no (unknown) (unknown) Potassium 3.9 (units ( unknown) date) (3.4-5.1) mmol/L unknown) (unknown) (no (unknown) (unknown) Test (units (unknown) date) Results Negative unknown) (unknown) (no (unknown) (unknown) Prescriptions: (units (unknown) date) unknown) (unknown) (no (unknown) (unknown) Previous Rx's (units ( unknown) date) unknown) (unknown) (no (unknown) (unknown) Psych: mental (units ( unknown) date) status is grossly unknown) normal, congruent mood, normal affect, pleasant (unknown) (no (unknown) (unknown) Pulse Oximetry 99 (units (unknown) date) 07/12/22 16:10 unknown) (unknown) (no (unknown) (unknown) Pulse Oximetry 99 (units (unknown) date) 99 unknown) (unknown) (no (unknown) (unknown) Pulse Rate 82 (units ( unknown) date) 07/12/22 16:10 unknown) (unknown) (no (unknown) (unknown) Pulse Rate 82 86 (units (unknown) date) unknown) (unknown) (no (unknown) (unknown) Questions are (units ( unknown) date) addressed and there unknown) is agreement with the plan and for follow-up. (unknown) (no (unknown) (unknown) RBC (4.0-5.2) (units ( unknown) date) X106/uL unknown) (unknown) (no (unknown) (unknown) RBC 4.44 (4.0-5.2) (units (unknown) date) X106/uL unknown) (unknown) (no (unknown) (unknown) RDW (11.6-14.8) % (units (unknown) date) unknown) (unknown) (no (unknown) (unknown) RDW 17.3 H (units (unk nown) date) (11.6-14.8) % unknown) (unknown) (no (unknown) (unknown) RESULT SUMMARY: (units (unknown) date) unknown) (unknown) (no (unknown) (unknown) ROS Unobtainable: (units (unknown) date) All systems unknown) reviewed + are unremarkable except as noted in HPI (unknown) (no (unknown) (unknown) Referrals: (units (unk nown) date) unknown) (unknown) (no (unknown) (unknown) Related Data (units (u nknown) date) unknown) (unknown) (no (unknown) (unknown) Respiratory Rate (units (unknown) date) 14 07/12/22 16:10 unknown) (unknown) (no (unknown) (unknown) Respiratory Rate (units (unknown) date) 14 22 unknown) (unknown) (no (unknown) (unknown) Respiratory: (units (u nknown) date) normal effort, able unknown) to speak in complete sentences, without (unknown) (no (unknown) (unknown) Review of Systems (units (unknown) date) unknown) (unknown) (no (unknown) (unknown) Reviewed vitals (units (unknown) date) signs and nursing unknown) notes. (unknown) (no (unknown) (unknown) S/P myringotomy (units (unknown) date) with insertion of unknown) tube (unknown) (no (unknown) (unknown) SARS-CoV-2 (PCR) (units (unknown) date) (Negative) unknown) (unknown) (no (unknown) (unknown) SARS-CoV-2 (PCR) (units (unknown) date) Negative (Negative) unknown) (unknown) (no (unknown) (unknown) (spontaneous (units (unknown) date) vaginal delivery) unknown) (-09/05/18) (unknown) (no (unknown) (unknown) Salicylate Stat (units (unknown) date) unknown) (unknown) (no (unknown) (unknown) Salicylates < 1.0 (units (unknown) date) (<20) mg/dL unknown) (unknown) (no (unknown) (unknown) Salicylates (<20) (units (unknown) date) mg/dL unknown) (unknown) (no (unknown) (unknown) She was given a (units (unknown) date) couple water, a unknown) diet order was ordered however they may not (unknown) (no (unknown) (unknown) Signed By: (units (unk nown) date) unknown) (unknown) (no (unknown) (unknown) Skin: brisk (units (un known) date) capillary refill, unknown) without pallor or erythema (unknown) (no (unknown) (unknown) Smoker (units (unkno wn) date) unknown) (unknown) (no (unknown) (unknown) Smoking Status: (units (unknown) date) Former smoker unknown) (unknown) (no (unknown) (unknown) Social History (units (unknown) date) (Reviewed 07/12/22 unknown) @ 17:50 by Juliet Paz [facility]) (unknown) (no (unknown) (unknown) Social (units (unkno wn) date) considerations that unknown) may affect disposition: none (unknown) (no (unknown) (unknown) Sodium (137-145) (units (unknown) date) mmol/L unknown) (unknown) (no (unknown) (unknown) Sodium 140 (units (unk nown) date) (137-145) mmol/L unknown) (unknown) (no (unknown) (unknown) Sodium Chloride (units (unknown) date) (Normal Saline unknown) 0.9%) 1,000 mls @ 1,000 mls/hr IV BOLUS ONE (unknown) (no (unknown) (unknown) Source: patient (units (unknown) date) unknown) (unknown) (no (unknown) (unknown) Stated Complaint: (units (unknown) date) Stress/Depression unknown) (unknown) (no (unknown) (unknown) Stop: 07/12/22 (units (unknown) date) 17:33 unknown) (unknown) (no (unknown) (unknown) Stop: 07/12/22 (units (unknown) date) 17:45 unknown) (unknown) (no (unknown) (unknown) Stop: 07/12/22 (units (unknown) date) 18:28 unknown) (unknown) (no (unknown) (unknown) Stop: 07/12/22 (units (unknown) date) 18:31 unknown) (unknown) (no (unknown) (unknown) Stop: 07/12/22 (units (unknown) date) 19:25 unknown) (unknown) (no (unknown) (unknown) Substance Use (units ( unknown) date) Type: does not use unknown) (unknown) (no (unknown) (unknown) Surgical History (units (unknown) date) (Reviewed 07/12/22 unknown) @ 17:50 by Juliet Paz [employer]) (unknown) (no (unknown) (unknown) Tactile (units (unkno wn) date) disturbances ?> 1 = unknown) Very mild itching, pin and needles, burning, or (unknown) (no (unknown) (unknown) Temperature 97.2 F (units (unknown) date) L 07/12/22 16:10 unknown) (unknown) (no (unknown) (unknown) Temperature 97.2 F (units (unknown) date) L unknown) (unknown) (no (unknown) (unknown) Thiamine HCl (units (u nknown) date) (Thiamine 100 Mg unknown) Tablet) 100 mg PO NOW ONE (unknown) (no (unknown) (unknown) Thiamine HCl 200 (units (unknown) date) mg/ Sodium unknown) (Chloride) 102 mls @ 408 mls/hr IV NOW ONE (unknown) (no (unknown) (unknown) This is a (units (unkn own) date) 31-year-old female unknown) with history of alcohol abuse and appears to have (unknown) (no (unknown) (unknown) Thyroid (units (unkno wn) date) Stimulating Hormone unknown) Stat (unknown) (no (unknown) (unknown) Time Seen by (units (u nknown) date) Provider: 07/12/22 unknown) 17:05 (unknown) (no (unknown) (unknown) Total Bilirubin (units (unknown) date) (0.2-1.3) mg/dL unknown) (unknown) (no (unknown) (unknown) Total Bilirubin (units (unknown) date) 0.4 (0.2-1.3) mg/dL unknown) (unknown) (no (unknown) (unknown) Total Protein (units ( unknown) date) (6.3-8.2) g/dL unknown) (unknown) (no (unknown) (unknown) Total Protein 7.3 (units (unknown) date) (6.3-8.2) g/dL unknown) (unknown) (no (unknown) (unknown) Tremor ?> 1 = Not (units (unknown) date) visible, but can be unknown) felt fingertip to fingertip (unknown) (no (unknown) (unknown) U Benzodiazepines (units (unknown) date) Scrn (Negative) unknown) (unknown) (no (unknown) (unknown) U Benzodiazepines (units (unknown) date) Scrn Negative unknown) (Negative) (unknown) (no (unknown) (unknown) U Marijuana (THC) (units (unknown) date) Screen (Negative) unknown) (unknown) (no (unknown) (unknown) U Marijuana (THC) (units (unknown) date) Screen Negative unknown) (Negative) (unknown) (no (unknown) (unknown) U Methamphetamines (units (unknown) date) Scrn (Negative) unknown) (unknown) (no (unknown) (unknown) U Methamphetamines (units (unknown) date) Scrn Negative unknown) (Negative) (unknown) (no (unknown) (unknown) U Opiates 300ng/mL (units (unknown) date) cut (Negative) unknown) (unknown) (no (unknown) (unknown) U Opiates 300ng/mL (units (unknown) date) cut Negative unknown) (Negative) (unknown) (no (unknown) (unknown) U Tricyclic (units (un known) date) Antidepress unknown) (Negative) (unknown) (no (unknown) (unknown) U Tricyclic (units (un known) date) Antidepress unknown) Negative (Negative) (unknown) (no (unknown) (unknown) Ur Amphetamines (units (unknown) date) Screen (Negative) unknown) (unknown) (no (unknown) (unknown) Ur Amphetamines (units (unknown) date) Screen Negative unknown) (Negative) (unknown) (no (unknown) (unknown) Ur Barbiturates (units (unknown) date) Screen (Negative) unknown) (unknown) (no (unknown) (unknown) Ur Barbiturates (units (unknown) date) Screen Negative unknown) (Negative) (unknown) (no (unknown) (unknown) Ur Culture (units (unk nown) date) Indicated? Specimen unknown) cultured (unknown) (no (unknown) (unknown) Ur Culture (units (unk nown) date) Indicated? unknown) (unknown) (no (unknown) (unknown) Ur MDMA Scrn (units (u nknown) date) (Ecstasy) unknown) (Negative) (unknown) (no (unknown) (unknown) Ur MDMA Scrn (units (u nknown) date) (Ecstasy) Negative unknown) (Negative) (unknown) (no (unknown) (unknown) Ur Oxycodone (units (u nknown) date) Screen (Negative) unknown) (unknown) (no (unknown) (unknown) Ur Oxycodone (units (u nknown) date) Screen Negative unknown) (Negative) (unknown) (no (unknown) (unknown) Ur Phencyclidine (units (unknown) date) Scrn (Negative) unknown) (unknown) (no (unknown) (unknown) Ur Phencyclidine (units (unknown) date) Scrn Negative unknown) (Negative) (unknown) (no (unknown) (unknown) Ur Squamous Epith (units (unknown) date) Cells (0-5/HPF) unknown) (unknown) (no (unknown) (unknown) Ur Squamous Epith (units (unknown) date) Cells 1-5 /hpf unknown) (0-5/HPF) (unknown) (no (unknown) (unknown) Urine Bacteria (units (unknown) date) (None) unknown) (unknown) (no (unknown) (unknown) Urine Bacteria (units (unknown) date) Many (>30) H (None) unknown) (unknown) (no (unknown) (unknown) Urine Cocaine (units ( unknown) date) Screen (Negative) unknown) (unknown) (no (unknown) (unknown) Urine Cocaine (units ( unknown) date) Screen Negative unknown) (Negative) (unknown) (no (unknown) (unknown) Urine Culture Stat (units (unknown) date) unknown) (unknown) (no (unknown) (unknown) Urine Dip (units (unkn own) date) unknown) (unknown) (no (unknown) (unknown) Urine Drug Screen, (units (unknown) date) Rapid Stat unknown) (unknown) (no (unknown) (unknown) Urine Methadone (units (unknown) date) Screen (Negative) unknown) (unknown) (no (unknown) (unknown) Urine Methadone (units (unknown) date) Screen Negative unknown) (Negative) (unknown) (no (unknown) (unknown) Urine Microscopic (units (unknown) date) Stat unknown) (unknown) (no (unknown) (unknown) Urine RBC (units (unkn own) date) (0-5/HPF) unknown) (unknown) (no (unknown) (unknown) Urine RBC 1-5/hpf (units (unknown) date) (0-5/HPF) unknown) (unknown) (no (unknown) (unknown) Urine Specific (units (unknown) date) [place] 1.015 unknown) (unknown) (no (unknown) (unknown) Urine WBC (units (unkn own) date) (0-5/HPF) unknown) (unknown) (no (unknown) (unknown) Urine WBC 1-5/hpf (units (unknown) date) (0-5/HPF) unknown) (unknown) (no (unknown) (unknown) Urine microscopy (units (unknown) date) with many bacteria, unknown) pending for culture, will treat for acute (unknown) (no (unknown) (unknown) Visual (units (unkno wn) date) disturbances ?> 1 = unknown) Very mild sensitivity (unknown) (no (unknown) (unknown) Vital Signs - 8 hr (units (unknown) date) unknown) (unknown) (no (unknown) (unknown) Vital Signs (units (un known) date) unknown) (unknown) (no (unknown) (unknown) Vital signs: (units (u nknown) date) unknown) (unknown) (no (unknown) (unknown) WBC (4.5-11.0) (units (unknown) date) X103/uL unknown) (unknown) (no (unknown) (unknown) WBC 3.3 L (units (unkn own) date) (4.5-11.0) X103/uL unknown) (unknown) (no (unknown) (unknown) [Embedded Image (units (unknown) date) Not Available] unknown) (unknown) (no (unknown) (unknown) [METOCLOPRAMIDE] (units (unknown) date) unknown) (unknown) (no (unknown) (unknown) acceptable. She is (units (unknown) date) nauseated, without unknown) vomiting, received Zofran previously and (unknown) (no (unknown) (unknown) acetaminophen 325 (units (unknown) date) mg tablet 325 mg PO unknown) Q6H PRN pain #20 tabs 02/05/20 (unknown) (no (unknown) (unknown) acetaminophen (units ( unknown) date) [Tylenol] 325 mg unknown) tablet (unknown) (no (unknown) (unknown) alcohol in 300s, (units (unknown) date) she was last here unknown) in the emergency department in May of (unknown) (no (unknown) (unknown) alcohol intake (units (unknown) date) frequency: 3 or unknown) more drinks per day (unknown) (no (unknown) (unknown) alcohol intake: (units (unknown) date) former unknown) (unknown) (no (unknown) (unknown) and below (units (unkn own) date) unknown) (unknown) (no (unknown) (unknown) and cooperative (units (unknown) date) unknown) (unknown) (no (unknown) (unknown) arrhythmia, or (units (unknown) date) acute ischemic unknown) changes. (unknown) (no (unknown) (unknown) at extension and (units (unknown) date) states that she unknown) feels symptoms of alcohol withdrawal. Denies (unknown) (no (unknown) (unknown) being depressed at (units (unknown) date) this time, CIWA is unknown) an 8. (unknown) (no (unknown) (unknown) bpm with rightward (units (unknown) date) axis and normal unknown) intervals. No STEMI, ST segment changes, (unknown) (no (unknown) (unknown) current (units (unkno wn) date) occupational unknown) exposures/hazards: Yes (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 with Pandemic ) (unknown) (no (unknown) (unknown) cystitis (units (unkno wn) date) unknown) (unknown) (no (unknown) (unknown) cystitis, she is (units (unknown) date) p.o. tolerant, unknown) still pending lab work (unknown) (no (unknown) (unknown) deliver since it (units (unknown) date) is after 17:00 and unknown) the diet order was ordered at 17:30. Samira (unknown) (no (unknown) (unknown) detox as well. (units (unknown) date) unknown) (unknown) (no (unknown) (unknown) diarrhea or (units (un known) date) current stool unknown) changes. (unknown) (no (unknown) (unknown) diphenhydramine (units (unknown) [...] mg unknown) capsule (unknown) (no (unknown) (unknown) draw her labs (units ( unknown) date) unknown) (unknown) (no (unknown) (unknown) education level: (units (unknown) date) college unknown) (unknown) (no (unknown) (unknown) electrolyte (units (un known) date) abnormalities. unknown) (unknown) (no (unknown) (unknown) emergency (units (unkn own) date) department on unknown) 06/18/2022 and a few days prior to that with a blood (unknown) (no (unknown) (unknown) renee/zoroastrianism: (units (unknown) date) Buddhist unknown) (unknown) (no (unknown) (unknown) fluid, EtOH, and (units (unknown) date) CIWA, ordered 2 mg unknown) of IV lorazepam for patient's symptoms, (unknown) (no (unknown) (unknown) for alcohol (units (un known) date) related complaints unknown) through 2019, and she presented to the [facility] (unknown) (no (unknown) (unknown) from social work (units (unknown) date) is aware and unknown) pending her lab work to arrange for inpatient (unknown) (no (unknown) (unknown) her urine (units (unkn own) date) microscopy came unknown) back positive for many bacteria, will treat for acute (unknown) (no (unknown) (unknown) household members: (units (unknown) date) spouse and children unknown) (unknown) (no (unknown) (unknown) hydrocodone (units (un known) date) [HYDROCODONE] unknown) AdvReac Unknown VOMITING Verified 07/12/22 16:18 (unknown) (no (unknown) (unknown) hydrocodone. She (units (unknown) date) denies urinary unknown) frequency, urgency or flank pain, endorses (unknown) (no (unknown) (unknown) ibuprofen 600 mg (units (unknown) date) Tablet unknown) (unknown) (no (unknown) (unknown) ibuprofen 600 mg (units (unknown) date) tablet 600 mg PO unknown) Q6HR PRN Pain, Mild 07/04/20 (unknown) (no (unknown) (unknown) injuries, denies (units (unknown) date) chance of unknown) , denies any other ingestions, is pleasant, (unknown) (no (unknown) (unknown) intoxicated (units (un known) date) endorses symptoms unknown) of alcohol withdrawal. Patient states that she (unknown) (no (unknown) (unknown) intoxicated, (units (un known) date) pleasant, unknown) interactive and comfortable although active and fidgeting (unknown) (no (unknown) (unknown) is 338, COVID PCR (units (unknown) date) was negative, drug unknown) screen is negative for all tested agents, (unknown) (no (unknown) (unknown) is allergic to (units ( unknown) date) Reglan, will dose unknown) with another 5 mg of Zofran, no QT prolongation (unknown) (no (unknown) (unknown) limited history (units (unknown) date) currently due to unknown) intoxication. She states that she is recently (unknown) (no (unknown) (unknown) lorazepam at 2 mg (units (unknown) date) for this. unknown) (unknown) (no (unknown) (unknown) marital status: (units (unknown) date) unknown) (unknown) (no (unknown) (unknown) medicine with her, (units (unknown) date) she only has the unknown) Seroquel. Patient has allergy to Reglan and (unknown) (no (unknown) (unknown) metoclopramide (units (unknown) date) Allergy Mild unknown) RASH/HIVES Verified 07/12/22 16:18 (unknown) (no (unknown) (unknown) mild anemia but (units (unknown) date) improved from her unknown) prior with H+H of 11.5 and 35.3, no evidence (unknown) (no (unknown) (unknown) nausea vomiting or (units (unknown) date) abdominal pain at unknown) this time. Denies any vomiting home or (unknown) (no (unknown) (unknown) nausea without (units (unknown) date) vomiting. unknown) (unknown) (no (unknown) (unknown) number of (units (unkn own) date) children: 1 unknown) (unknown) (no (unknown) (unknown) numbness (units (unkno wn) date) unknown) (unknown) (no (unknown) (unknown) occupational (units (u nknown) date) status: employed unknown) (unknown) (no (unknown) (unknown) of bleeding (units (un known) date) anywhere, CMP unknown) (unknown) (no (unknown) (unknown) on her EKG, (units (un known) date) patient is alert unknown) and oriented x3, complaining of feeling poorly and (unknown) (no (unknown) (unknown) ondansetron 4 mg [...] tablet,disintegrati unknown) ng (unknown) (no (unknown) (unknown) ordered p.o. (units (u nknown) date) Ativan for her unknown) symptoms and ask our into call lab to come up and (unknown) (no (unknown) (unknown) prenat.vits,otis,mi (units (unknown) date) q-fdom-foalj 1 tab unknown) PO DAILY 12/30/19 07/03/20 (unknown) (no (unknown) (unknown) prenat.vits,otis,mi (units (unknown) date) [id number]-bhke-bicfc Tablet unknown) (unknown) (no (unknown) (unknown) relapsed due to a (units (unknown) date) divorce with her unknown) . 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 She is currently (unknown) (no (unknown) (unknown) significant tremor (units (unknown) date) or tongue unknown) fasciculation, she has a mild tremor with her arms (unknown) (no (unknown) (unknown) social work and (units (unknown) date) orders are pending unknown) (unknown) (no (unknown) (unknown) special renee (units ( unknown) date) needs: No unknown) (unknown) (no (unknown) (unknown) substance abuse, (units (unknown) date) alcohol unknown) intoxication, psychosis, mood disorder, depression (unknown) (no (unknown) (unknown) substance use (units ( unknown) date) type: does not use unknown) (unknown) (no (unknown) (unknown) tablet vomiting (units (unknown) date) #14 tabs unknown) (unknown) (no (unknown) (unknown) tablet vomiting (units (unknown) date) #20 tabs unknown) (unknown) (no (unknown) (unknown) tablet vomiting (units (unknown) date) #30 tabs unknown) (unknown) (no (unknown) (unknown) takes Seroquel 300 (units (unknown) date) mg at night as well unknown) as Librium but she does not have this (unknown) (no (unknown) (unknown) tenderness or (units ( unknown) date) exquisite unknown) tenderness with exam. (unknown) (no (unknown) (unknown) that she drinks (units (unknown) date) vodka and admits to unknown) drinking heavily today, states that she took (unknown) (no (unknown) (unknown) the bottle upside (units (unknown) date) down and started unknown) checking from it. She denies any recent (unknown) (no (unknown) (unknown) thyroid studies (units (unknown) date) are still pending. unknown) No significant findings to her CMP. No (unknown) (no (unknown) (unknown) tramadol 50 mg (units (unknown) date) tablet 50 mg PO Q6H unknown) PRN pain #10 tabs 06/12/22 (unknown) (no (unknown) (unknown) tramadol 50 mg (units (unknown) date) tablet unknown) (unknown) (no (unknown) (unknown) tremors, no (units (un known) date) tachycardia, her unknown) STANLEY is currently 10, ordered another p.o. dose of (unknown) (no (unknown) (unknown) well as prior (units ( unknown) date) records if unknown) available. (unknown) (no (unknown) (unknown) wheezing, stridor, (units (unknown) date) or abnormal breath unknown) sounds. No retractions or tachypnea. Result panel [id number] (unknown) (no date) (unknown) (unknown) 0.93 ng/dl (unkn own) Result panel [id number] (unknown) (no (unknown) (unknown) (no value) (units (unk nown) date) unknown) (unknown) (no (unknown) (unknown) (1-3) #30 tabs (units (unknown) date) unknown) (unknown) (no (unknown) (unknown) (Benadryl) caps (units (unknown) date) unknown) (unknown) (no (unknown) (unknown) (Colace) (units (unkno wn) date) unknown) (unknown) (no (unknown) (unknown) (Tylenol) (units (unkn own) date) unknown) (unknown) (no (unknown) (unknown) [id number] (units (unkn own) date) unknown) (unknown) (no (unknown) (unknown) 07/12/22 07/12/22 (units (unknown) date) 07/12/22 unknown) Range/Units (unknown) (no (unknown) (unknown) 07/12/22 07/12/22 (units (unknown) date) Range/Units unknown) (unknown) (no (unknown) (unknown) 07/12/22 16:28 (units (unknown) date) unknown) (unknown) (no (unknown) (unknown) 07/12/22 16:32 (units (unknown) date) unknown) (unknown) (no (unknown) (unknown) 07/12/22 18:28 (units (unknown) date) unknown) (unknown) (no (unknown) (unknown) 07/12/22 19:15 (units (unknown) date) unknown) (unknown) (no (unknown) (unknown) 07/12/22 (units (unkno wn) date) unknown) (unknown) (no (unknown) (unknown) 1 tab PO DAILY (units (unknown) date) unknown) (unknown) (no (unknown) (unknown) 100 mg PO BID Qty: (units (unknown) date) 30 0RF unknown) (unknown) (no (unknown) (unknown) 16:10 07/12/22 (units (unknown) date) unknown) (unknown) (no (unknown) (unknown) 16:32 16:32 16:32 (units (unknown) date) unknown) (unknown) (no (unknown) (unknown) 1835 patient still (units (unknown) date) does not have an unknown) IV, has not received any IV fluid her (unknown) (no (unknown) (unknown) 18:53 (units (unkno wn) date) unknown) (unknown) (no (unknown) (unknown) 1899 still no IV, (units (unknown) date) patient is p.o. unknown) challenging, she received her p.o. lorazepam, (unknown) (no (unknown) (unknown) 1929, patient now (units (unknown) date) feels depressed, unknown) she is lying in bed, feeling bad, has (unknown) (no (unknown) (unknown) 19:15 19:15 (units (un known) date) unknown) (unknown) (no (unknown) (unknown) 1999 patient is (units (unknown) date) feeling better now, unknown) her lab work is starting to return and ETOH (unknown) (no (unknown) (unknown) 2002 patient (units (u nknown) date) requests to take unknown) her home dosing of Seroquel 300 mg, this is (unknown) (no (unknown) (unknown) 2022 with similar (units (unknown) date) symptoms. She comes unknown) in complaining of needing help, states (unknown) (no (unknown) (unknown) 25 mg PO [...] Qty: 30 0RF (unknown) (no (unknown) (unknown) 9 points (units (unkno wn) date) unknown) (unknown) (no (unknown) (unknown) ALT (<35) IU/L (units (unknown) date) unknown) (unknown) (no (unknown) (unknown) ALT 21 (<35) IU/L (units (unknown) date) unknown) (unknown) (no (unknown) (unknown) AST (14-36) IU/L (units (unknown) date) unknown) (unknown) (no (unknown) (unknown) AST 67 H (14-36) (units (unknown) date) IU/L unknown) (unknown) (no (unknown) (unknown) Acetaminophen < 10 (units (unknown) date) (10-30) ug/mL unknown) (unknown) (no (unknown) (unknown) Acetaminophen (units ( unknown) date) (10-30) ug/mL unknown) (unknown) (no (unknown) (unknown) Acetaminophen Stat (units (unknown) date) unknown) (unknown) (no (unknown) (unknown) Acute cystitis (units (unknown) date) unknown) (unknown) (no (unknown) (unknown) Age/Sex: 31 / F (units (unknown) date) unknown) (unknown) (no (unknown) (unknown) Agitation ?> 2 = (units (unknown) date) (More severe unknown) symptoms) (unknown) (no (unknown) (unknown) Albumin (3.5-5.0) (units (unknown) date) g/dL unknown) (unknown) (no (unknown) (unknown) Albumin 4.3 (units (un known) date) (3.5-5.0) g/dL unknown) (unknown) (no (unknown) (unknown) Albumin/Globulin (units (unknown) date) Ratio (1.0-2.8) unknown) (unknown) (no (unknown) (unknown) Albumin/Globulin (units (unknown) date) Ratio 1.4 (1.0-2.8) unknown) (unknown) (no (unknown) (unknown) Alcohol use (units (un known) date) disorder unknown) (unknown) (no (unknown) (unknown) Alcoholism (units (unk nown) date) unknown) (unknown) (no (unknown) (unknown) Alkaline (units (unkno wn) date) Phosphatase unknown) (38-126) U/L (unknown) (no (unknown) (unknown) Alkaline (units (unkno wn) date) Phosphatase 98 unknown) (38-126) U/L (unknown) (no (unknown) (unknown) Allergies (units (unkn own) date) unknown) (unknown) (no (unknown) (unknown) Allergy/AdvReac (units (unknown) date) Type Severity unknown) Reaction Status Date / Time (unknown) (no (unknown) (unknown) Anemia (-2018) (units (unknown) date) unknown) (unknown) (no (unknown) (unknown) Anxiety ?> 2 = (units (unknown) date) (More severe unknown) symptoms) (unknown) (no (unknown) (unknown) Auditory (units (unkno wn) date) disturbances ?> 1 = unknown) Very mild harshness or ability to frighten (unknown) (no (unknown) (unknown) BUN (7-17) mg/dL (units (unknown) date) unknown) (unknown) (no (unknown) (unknown) BUN 9 (7-17) mg/dL (units (unknown) date) unknown) (unknown) (no (unknown) (unknown) BUN/Creatinine (units (unknown) date) Ratio (6-22) unknown) (unknown) (no (unknown) (unknown) BUN/Creatinine (units (unknown) date) Ratio 11.0 (6-22) unknown) (unknown) (no (unknown) (unknown) Baso # (Auto) (units ( unknown) date) (0-100) /uL unknown) (unknown) (no (unknown) (unknown) Baso # (Auto) 0 (units (unknown) date) (0-100) /uL unknown) (unknown) (no (unknown) (unknown) Baso % (Auto) (units ( unknown) date) (0-2) % unknown) (unknown) (no (unknown) (unknown) Baso % (Auto) 0.9 (units (unknown) date) (0-2) % unknown) (unknown) (no (unknown) (unknown) Bedside Urine (units ( unknown) date) Bilirubin - unknown) Negative (unknown) (no (unknown) (unknown) Bedside Urine (units ( unknown) date) Glucose Negative unknown) (unknown) (no (unknown) (unknown) Bedside Urine (units ( unknown) date) Ketone - Negative unknown) (unknown) (no (unknown) (unknown) Bedside Urine (units ( unknown) date) Leukocytes - unknown) Negative (unknown) (no (unknown) (unknown) Bedside Urine (units ( unknown) date) Nitrite + Positive unknown) (unknown) (no (unknown) (unknown) Bedside Urine (units ( unknown) date) Occult Blood - unknown) Negative (unknown) (no (unknown) (unknown) Bedside Urine (units ( unknown) date) Protein - Negative unknown) (unknown) (no (unknown) (unknown) Bedside Urine (units ( unknown) date) Urobilinogen - unknown) Negative (unknown) (no (unknown) (unknown) Bedside Urine pH (units (unknown) date) 6.0 unknown) (unknown) (no (unknown) (unknown) Blood Pressure (units (unknown) date) 112/62 07/12/22 unknown) 16:10 (unknown) (no (unknown) (unknown) Blood Pressure (units (unknown) date) unknown) (unknown) (no (unknown) (unknown) Blood Pressure (units (unknown) date) [Left Arm] 100/59 L unknown) (unknown) (no (unknown) (unknown) CIWA is now worse (units (unknown) date) and she has unknown) tremors, anxiety is worsening and agitation, (unknown) (no (unknown) (unknown) CIWA-Ar for (units (un known) date) Alcohol Withdrawal unknown) from [facility] on 07/12/2022 (unknown) (no (unknown) (unknown) COVID19 -Nasal (units (unknown) date) RAPID/Pre-Proc Stat unknown) (unknown) (no (unknown) (unknown) Calcium (8.4-10.2) (units (unknown) date) mg/dL unknown) (unknown) (no (unknown) (unknown) Calcium 8.0 L (units ( unknown) date) (8.4-10.2) mg/dL unknown) (unknown) (no (unknown) (unknown) Carbon Dioxide (units (unknown) date) (22-32) mmol/L unknown) (unknown) (no (unknown) (unknown) Carbon Dioxide 23 (units (unknown) date) (22-32) mmol/L unknown) (unknown) (no (unknown) (unknown) Cardiovascular: (units (unknown) date) regular rate and unknown) rhythm, no peripheral edema, warm extremities (unknown) (no (unknown) (unknown) Cephalexin HCl (units (unknown) date) (Cephalexin 250 Mg unknown) Capsule) 500 mg PO Q6H SANDY (unknown) (no (unknown) (unknown) Chief Complaint: (units (unknown) date) Alcohol unknown) intoxication, seeking detox (unknown) (no (unknown) (unknown) Chief Complaint: (units (unknown) date) Toxicology Problem unknown) (unknown) (no (unknown) (unknown) Chloride (98-107) (units (unknown) date) mmol/L unknown) (unknown) (no (unknown) (unknown) Chloride 104 (units (u nknown) date) (98-107) mmol/L unknown) (unknown) (no (unknown) (unknown) Clinical (units (unkno wn) date) Impression: unknown) (unknown) (no (unknown) (unknown) Clinical decision (units (unknown) date) rules or scores unknown) evaluated: CIWA of 9 at 1753 (unknown) (no (unknown) (unknown) Complete Blood (units (unknown) date) Count AUTO DIFF unknown) Stat (unknown) (no (unknown) (unknown) Comprehensive (units ( unknown) date) Metabolic Panel unknown) Stat (unknown) (no (unknown) (unknown) Consult to WINDOWS MIGRATION TECHNICIAN - (units (unknown) date) 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 unknown) Stat (unknown) (no (unknown) (unknown) Course of care: (units (unknown) date) Patient is a unknown) difficult IV stick, ordered IV with lab work, (unknown) (no (unknown) (unknown) Course (units (unkno wn) date) unknown) (unknown) (no (unknown) (unknown) Creatinine (units (unk nown) date) (0.52-1.04) mg/dL unknown) (unknown) (no (unknown) (unknown) Creatinine 0.82 (units (unknown) date) (0.52-1.04) mg/dL unknown) (unknown) (no (unknown) (unknown) : 1990 (units (unknown) date) Acct:[id number] unknown) (unknown) (no (unknown) (unknown) Date of Service: (units (unknown) date) 07/12/22 unknown) (unknown) (no (unknown) (unknown) Departure (units (unkn own) date) unknown) (unknown) (no (unknown) (unknown) Differential (units (u nknown) date) diagnoses include unknown) but are not limited to: Alcohol withdrawal, (unknown) (no (unknown) (unknown) Discharge Plan (units (unknown) date) unknown) (unknown) (no (unknown) (unknown) Discontinued (units (u nknown) date) Medications unknown) (unknown) (no (unknown) (unknown) Documented By: KB (units (unknown) date) unknown) (unknown) (no (unknown) (unknown) Documented By: OW (units (unknown) date) unknown) (unknown) (no (unknown) (unknown) ECG Data (units (unkno wn) date) unknown) (unknown) (no (unknown) (unknown) ED Orders (units (unkn own) date) unknown) (unknown) (no (unknown) (unknown) EKG independently (units (unknown) date) reviewed by myself unknown) at 1830 reveals normal sinus rhythm at 72 (unknown) (no (unknown) (unknown) EKG-12 Lead Stat (units (unknown) date) unknown) (unknown) (no (unknown) (unknown) ER Physician: (units ( unknown) date) Crew,Juliet J unknown) LYUDMILA (unknown) (no (unknown) (unknown) Emergency Report (units (unknown) date) unknown) (unknown) (no (unknown) (unknown) Eos # (Auto) (units (u nknown) date) (0-450) /uL unknown) (unknown) (no (unknown) (unknown) Eos # (Auto) 0 (units (unknown) date) (0-450) /uL unknown) (unknown) (no (unknown) (unknown) Eos % (Auto) (2-4) (units (unknown) date) % unknown) (unknown) (no (unknown) (unknown) Eos % (Auto) 0.3 L (units (unknown) date) (2-4) % unknown) (unknown) (no (unknown) (unknown) Esterase (units (unkno wn) date) unknown) (unknown) (no (unknown) (unknown) Estimated GFR > 60 (units (unknown) date) (>60) mL/min unknown) (unknown) (no (unknown) (unknown) Estimated GFR (units ( unknown) date) (>60) mL/min unknown) (unknown) (no (unknown) (unknown) Ethanol (ETOH) (units (unknown) date) Stat unknown) (unknown) (no (unknown) (unknown) Ethyl Alcohol ( - (units (unknown) date) 10) mg/dL unknown) (unknown) (no (unknown) (unknown) Ethyl Alcohol 338 (units (unknown) date) H ( - 10) mg/dL unknown) (unknown) (no (unknown) (unknown) Exam Narrative: (units (unknown) date) unknown) (unknown) (no (unknown) (unknown) Exam (units (unkno wn) date) unknown) (unknown) (no (unknown) (unknown) Family History (units (unknown) date) (Reviewed 07/12/22 unknown) @ 17:50 by LYUDMILA Do) (unknown) (no (unknown) (unknown) Family/Other (units (u nknown) date) Alcoholism unknown) (unknown) (no (unknown) (unknown) Family/Other (units (u nknown) date) Diabetes mellitus unknown) (unknown) (no (unknown) (unknown) Father Alcoholism (units (unknown) date) unknown) (unknown) (no (unknown) (unknown) Tonia Schneider MD (units (unknown) date) [Primary Care unknown) Provider] (unknown) (no (unknown) (unknown) Folic Acid (Folic (units (unknown) date) Acid 1 Mg Tablet) 1 unknown) mg PO DAILY SANDY (unknown) (no (unknown) (unknown) Free T4, Direct (units (unknown) date) Thyroxine Stat unknown) (unknown) (no (unknown) (unknown) GI: abdomen soft, (units (unknown) date) nontender to unknown) palpation, nondistended, without masses, rebound (unknown) (no (unknown) (unknown) General (units (unkno wn) date) unknown) (unknown) (no (unknown) (unknown) General: (units (unkno wn) date) cooperative, unknown) comfortable, in no acute distress, well groomed, appears (unknown) (no (unknown) (unknown) Globulin (1.7-4.1) (units (unknown) date) g/dL unknown) (unknown) (no (unknown) (unknown) Globulin 3.0 (units (u nknown) date) (1.7-4.1) g/dL unknown) (unknown) (no (unknown) (unknown) Glucose (70-100) (units (unknown) date) mg/dL unknown) (unknown) (no (unknown) (unknown) Glucose 111 H (units ( unknown) date) (70-100) mg/dL [...] extraction (-2013) unknown) (unknown) (no (unknown) (unknown) HEENT: symmetrical (units (unknown) date) facial expressions, unknown) dry mucous membranes (unknown) (no (unknown) (unknown) HPI - Alcohol (units ( unknown) date) unknown) (unknown) (no (unknown) (unknown) HPI narrative: (units (unknown) date) unknown) (unknown) (no (unknown) (unknown) Hct (36-46) % (units ( unknown) date) unknown) (unknown) (no (unknown) (unknown) Hct 35.3 L (36-46) (units (unknown) date) % unknown) (unknown) (no (unknown) (unknown) Headache/fullness (units (unknown) date) in head ?> 1 = Very unknown) mild (unknown) (no (unknown) (unknown) Hematuria (units (unkn own) date) presence: without unknown) hematuria Qualified Code(s): N30.00 - Acute (unknown) (no (unknown) (unknown) Hgb (12.0-16.0) (units (unknown) date) g/dL unknown) (unknown) (no (unknown) (unknown) Hgb 11.5 L (units (unk nown) date) (12.0-16.0) g/dL unknown) (unknown) (no (unknown) (unknown) History of Present (units (unknown) date) Illness unknown) (unknown) (no (unknown) (unknown) Home Medications (units (unknown) date) unknown) (unknown) (no (unknown) (unknown) I have (units (unkno wn) date) independently unknown) reviewed the patient's vital signs and nursing notes as (unknown) (no (unknown) (unknown) INPUTS: (units (unkno wn) date) unknown) (unknown) (no (unknown) (unknown) Independent (units (un known) date) historian: Patient unknown) (unknown) (no (unknown) (unknown) Initial Vital (units ( unknown) date) Signs unknown) (unknown) (no (unknown) (unknown) Initial Vital (units ( unknown) date) Signs: unknown) (unknown) (no (unknown) (unknown) Insomnia (units (unkno wn) date) unknown) (unknown) (no (unknown) (unknown) Interpretation: (units (unknown) date) unknown) (unknown) (no (unknown) (unknown) [facility] (units (unknown) date) [address] unknown) [place] [address] (unknown) (no (unknown) (unknown) Lab Data (units (unkno wn) date) unknown) (unknown) (no (unknown) (unknown) Lab Results (units (un known) date) unknown) (unknown) (no (unknown) (unknown) Labs: (units (unkno wn) date) unknown) (unknown) (no (unknown) (unknown) Last Admin: (units (un known) date) 07/12/22 18:39 unknown) Dose: 4 mg (unknown) (no (unknown) (unknown) Last Admin: (units (un known) date) 07/12/22 18:40 unknown) Dose: 1 mg (unknown) (no (unknown) (unknown) Last Admin: (units (un known) date) 07/12/22 18:56 unknown) Dose: Not Given (unknown) (no (unknown) (unknown) Lorazepam (units (unkn own) date) (Lorazepam 0.5 Mg unknown) Tablet) 1 mg PO NOW ONE (unknown) (no (unknown) (unknown) Lorazepam (units (unkn own) date) (Lorazepam 0.5 Mg unknown) Tablet) 2 mg PO NOW ONE (unknown) (no (unknown) (unknown) Lorazepam (units (unkn own) date) (Lorazepam 2 Mg/Ml unknown) Inj) 2 mg IV NOW ONE (unknown) (no (unknown) (unknown) Lymph # (Auto) (units (unknown) date) (8838-9939) /uL unknown) (unknown) (no (unknown) (unknown) Lymph # (Auto) (units (unknown) date) 1700 ([id number]) unknown) /uL (unknown) (no (unknown) (unknown) Lymph % (Auto) (units (unknown) date) (25-40) % unknown) (unknown) (no (unknown) (unknown) Lymph % (Auto) (units (unknown) date) 50.6 H (25-40) % unknown) (unknown) (no (unknown) (unknown) MCH (26-34) PG (units (unknown) date) unknown) (unknown) (no (unknown) (unknown) MCH 26.0 (26-34) (units (unknown) date) PG unknown) (unknown) (no (unknown) (unknown) MCHC (30-36) % (units (unknown) date) unknown) (unknown) (no (unknown) (unknown) MCHC 32.7 (30-36) (units (unknown) date) % unknown) (unknown) (no (unknown) (unknown) MCV (80-100) fL (units (unknown) date) unknown) (unknown) (no (unknown) (unknown) MCV 79.5 L (units (unk nown) date) (80-100) fL unknown) (unknown) (no (unknown) (unknown) MDM - Alcohol (units ( unknown) date) unknown) (unknown) (no (unknown) (unknown) MDM Narrative (units ( unknown) date) unknown) (unknown) (no (unknown) (unknown) MIPS: This (units (unk n) date) encounter doesn't unknown) have any diagnosis' associated with MIPS criteria. (unknown) (no (unknown) (unknown) MSK: moves all (units (unknown) date) extremities, unknown) neurovascularly intact, no weakness, normal tone no (unknown) (no (unknown) (unknown) Medical History (units (unknown) date) (Reviewed 07/12/22 unknown) @ 17:50 by Juliet Paz [facility]) (unknown) (no (unknown) (unknown) Medical decision (units (unknown) date) making narrative: unknown) (unknown) (no (unknown) (unknown) Medication (units (unk nown) date) Instructions unknown) Recorded Confirmed (unknown) (no (unknown) (unknown) Medication (units (unk nown) date) Instructions unknown) Recorded (unknown) (no (unknown) (unknown) Menometrorrhagia (units (unknown) date) unknown) (unknown) (no (unknown) (unknown) Mode of arrival: (units (unknown) date) Ambulatory unknown) (unknown) (no (unknown) (unknown) Yates # (Auto) (units ( unknown) date) (0-900) /uL unknown) (unknown) (no (unknown) (unknown) Yates # (Auto) 100 (units (unknown) date) (0-900) /uL unknown) (unknown) (no (unknown) (unknown) Yates % (Auto) (units ( unknown) date) (3-14) % unknown) (unknown) (no (unknown) (unknown) Yates % (Auto) 2.7 (units (unknown) date) L (3-14) % unknown) (unknown) (no (unknown) (unknown) Mother Diabetes (units (unknown) date) mellitus unknown) (unknown) (no (unknown) (unknown) Narrative (units (unkn own) date) unknown) (unknown) (no (unknown) (unknown) Nausea/vomiting ?> (units (unknown) date) 0 = No nausea and unknown) no vomiting (unknown) (no (unknown) (unknown) Neuro: normal (units ( unknown) date) speech and unknown) cognition, A+O x3, ambulatory, clear speech (unknown) (no (unknown) (unknown) Neut # (Auto) (units ( unknown) date) (1271-7728) /uL unknown) (unknown) (no (unknown) (unknown) Neut # (Auto) 1500 (units (unknown) date) (0457-8933) /uL unknown) (unknown) (no (unknown) (unknown) Neut % (Auto) (units ( unknown) date) (50-75) % unknown) (unknown) (no (unknown) (unknown) Neut % (Auto) 45.5 (units (unknown) date) L (50-75) % unknown) (unknown) (no (unknown) (unknown) No Action (units (unkn own) date) unknown) (unknown) (no (unknown) (unknown) Obesity (units (unkno wn) date) unknown) (unknown) (no (unknown) (unknown) Ondansetron HCl (units (unknown) date) (Ondansetron 4 Mg unknown) Odt) 4 mg SL NOW ONE (unknown) (no (unknown) (unknown) Ondansetron HCl (units (unknown) date) (Ondansetron 4 Mg/2 unknown) Ml Inj) 4 mg IV Q6HR PRN (unknown) (no (unknown) (unknown) Ordered: (units (unkno wn) date) unknown) (unknown) (no (unknown) (unknown) Orders (units (unkno wn) date) unknown) (unknown) (no (unknown) (unknown) Orientation/cloudi (units (unknown) date) ng of sensorium ?> unknown) 0 = Oriented, can do serial additions (unknown) (no (unknown) (unknown) Overweight (units (unk nown) date) unknown) (unknown) (no (unknown) (unknown) Oxygen Delivery (units (unknown) date) Method Room Air unknown) 07/12/22 16:10 (unknown) (no (unknown) (unknown) Oxygen Delivery (units (unknown) date) Method Room Air unknown) Room Air (unknown) (no (unknown) (unknown) PRN Reason: Nausea (units (unknown) date) And Vomiting unknown) (unknown) (no (unknown) (unknown) Paroxysmal sweats (units (unknown) date) ?> 0 = No sweat unknown) visible (unknown) (no (unknown) (unknown) Patient (units (unkno wn) date) Disposition: Xfer unknown[facility] (no (unknown) (unknown) Patient History (units (unknown) date) unknown) (unknown) (no (unknown) (unknown) Patient: (units (unkno wn) date) Sarah Connors unknown) MR#: M (unknown) (no (unknown) (unknown) Patients with (units ( unknown) date) scores >= may unknown) require medication for withdrawal. (unknown) (no (unknown) (unknown) Pertinent lab (units ( unknown) date) findings reviewed: unknown) CBC is pertinent for mild leukopenia of 3.3, (unknown) (no (unknown) (unknown) Plt Count (units (unkn own) date) (150-400) X103/uL unknown) (unknown) (no (unknown) (unknown) Plt Count 226 (units ( unknown) date) (150-400) X103/uL unknown) (unknown) (no (unknown) (unknown) Point of Care (units ( unknown) date) Testing unknown) (unknown) (no (unknown) (unknown) Potassium (units (unkn own) date) (3.4-5.1) mmol/L unknown) (unknown) (no (unknown) (unknown) Potassium 3.9 (units ( unknown) date) (3.4-5.1) mmol/L unknown) (unknown) (no (unknown) (unknown) Test (units (unknown) date) Results Negative unknown) (unknown) (no (unknown) (unknown) Prescriptions: (units (unknown) date) unknown) (unknown) (no (unknown) (unknown) Previous Rx's (units ( unknown) date) unknown) (unknown) (no (unknown) (unknown) Psych: mental (units ( unknown) date) status is grossly unknown) normal, congruent mood, normal affect, pleasant (unknown) (no (unknown) (unknown) Pulse Oximetry 99 (units (unknown) date) 07/12/22 16:10 unknown) (unknown) (no (unknown) (unknown) Pulse Oximetry 99 (units (unknown) date) 99 unknown) (unknown) (no (unknown) (unknown) Pulse Rate 82 (units ( unknown) date) 07/12/22 16:10 unknown) (unknown) (no (unknown) (unknown) Pulse Rate 82 86 (units (unknown) date) unknown) (unknown) (no (unknown) (unknown) Qualifiers: (units (un known) date) unknown) (unknown) (no (unknown) (unknown) Questions are (units ( unknown) date) addressed and there unknown) is agreement with the plan and for follow-up. (unknown) (no (unknown) (unknown) RBC (4.0-5.2) (units ( unknown) date) X106/uL unknown) (unknown) (no (unknown) (unknown) RBC 4.44 (4.0-5.2) (units (unknown) date) X106/uL unknown) (unknown) (no (unknown) (unknown) RDW (11.6-14.8) % (units (unknown) date) unknown) (unknown) (no (unknown) (unknown) RDW 17.3 H (units (unk nown) date) (11.6-14.8) % unknown) (unknown) (no (unknown) (unknown) RESULT SUMMARY: (units (unknown) date) unknown) (unknown) (no (unknown) (unknown) ROS Unobtainable: (units (unknown) date) All systems unknown) reviewed + are unremarkable except as noted in HPI (unknown) (no (unknown) (unknown) Referrals: (units (unk nown) date) unknown) (unknown) (no (unknown) (unknown) Related Data (units (u nknown) date) unknown) (unknown) (no (unknown) (unknown) Respiratory Rate (units (unknown) date) 14 07/12/22 16:10 unknown) (unknown) (no (unknown) (unknown) Respiratory Rate (units (unknown) date) 14 unknown) (unknown) (no (unknown) (unknown) Respiratory: (units (u nknown) date) normal effort, able unknown) to speak in complete sentences, without (unknown) (no (unknown) (unknown) Review of Systems (units (unknown) date) unknown) (unknown) (no (unknown) (unknown) Reviewed vitals (units (unknown) date) signs and nursing unknown) notes. (unknown) (no (unknown) (unknown) S/P myringotomy (units (unknown) date) with insertion of unknown) tube (unknown) (no (unknown) (unknown) SARS-CoV-2 (PCR) (units (unknown) date) (Negative) unknown) (unknown) (no (unknown) (unknown) SARS-CoV-2 (PCR) (units (unknown) date) Negative (Negative) unknown) (unknown) (no (unknown) (unknown) (spontaneous (units (unknown) date) vaginal delivery) unknown) (-09/05/18) (unknown) (no (unknown) (unknown) Salicylate Stat (units (unknown) date) unknown) (unknown) (no (unknown) (unknown) Salicylates < 1.0 (units (unknown) date) (<20) mg/dL unknown) (unknown) (no (unknown) (unknown) Salicylates (<20) (units (unknown) date) mg/dL unknown) (unknown) (no (unknown) (unknown) She was given a (units (unknown) date) couple water, a unknown) diet order was ordered however they may not (unknown) (no (unknown) (unknown) Signed By: (units (unk nown) date) unknown) (unknown) (no (unknown) (unknown) Skin: brisk (units (un known) date) capillary refill, unknown) without pallor or erythema (unknown) (no (unknown) (unknown) Smoker (units (unkno wn) date) unknown) (unknown) (no (unknown) (unknown) Smoking Status: (units (unknown) date) Former smoker unknown) (unknown) (no (unknown) (unknown) Social History (units (unknown) date) (Reviewed 07/12/22 unknown) @ 17:50 by LYDUMILA Do) (unknown) (no (unknown) (unknown) Social (units (unkno wn) date) considerations that unknown) may affect disposition: none (unknown) (no (unknown) (unknown) Sodium (137-145) (units (unknown) date) mmol/L unknown) (unknown) (no (unknown) (unknown) Sodium 140 (units (unk nown) date) (137-145) mmol/L unknown) (unknown) (no (unknown) (unknown) Sodium Chloride (units (unknown) date) (Normal Saline unknown) 0.9%) 1,000 mls @ 1,000 mls/hr IV BOLUS ONE (unknown) (no (unknown) (unknown) Source: patient (units (unknown) date) unknown) (unknown) (no (unknown) (unknown) Stated Complaint: (units (unknown) date) Stress/Depression unknown) (unknown) (no (unknown) (unknown) Stop: 07/12/22 (units (unknown) date) 17:33 unknown) (unknown) (no (unknown) (unknown) Stop: 07/12/22 (units (unknown) date) 17:45 unknown) (unknown) (no (unknown) (unknown) Stop: 07/12/22 (units (unknown) date) 18:28 unknown) (unknown) (no (unknown) (unknown) Stop: 07/12/22 (units (unknown) date) 18:31 unknown) (unknown) (no (unknown) (unknown) Stop: 07/12/22 (units (unknown) date) 19:25 unknown) (unknown) (no (unknown) (unknown) Substance Use (units ( unknown) date) Type: does not use unknown) (unknown) (no (unknown) (unknown) Surgical History (units (unknown) date) (Reviewed 07/12/22 unknown) @ 17:50 by LYUDMILA Do) (unknown) (no (unknown) (unknown) Tactile (units (unkno wn) date) disturbances ?> 1 = unknown) Very mild itching, pin and needles, burning, or (unknown) (no (unknown) (unknown) Temperature 97.2 F (units (unknown) date) L 07/12/22 16:10 unknown) (unknown) (no (unknown) (unknown) Temperature 97.2 F (units (unknown) date) L unknown) (unknown) (no (unknown) (unknown) Thiamine HCl (units (u nknown) date) (Thiamine 100 Mg unknown) Tablet) 100 mg PO NOW ONE (unknown) (no (unknown) (unknown) Thiamine HCl 200 (units (unknown) date) mg/ Sodium unknown) (Chloride) 102 mls @ 408 mls/hr IV NOW ONE (unknown) (no (unknown) (unknown) This is a (units (unkn own) date) 31-year-old female unknown) with history of alcohol abuse and appears to have (unknown) (no (unknown) (unknown) Thyroid (units (unkno wn) date) Stimulating Hormone unknown) Stat (unknown) (no (unknown) (unknown) Time Seen by (units (u nknown) date) Provider: 07/12/22 unknown) 17:05 (unknown) (no (unknown) (unknown) Total Bilirubin (units (unknown) date) (0.2-1.3) mg/dL unknown) (unknown) (no (unknown) (unknown) Total Bilirubin (units (unknown) date) 0.4 (0.2-1.3) mg/dL unknown) (unknown) (no (unknown) (unknown) Total Protein (units ( unknown) date) (6.3-8.2) g/dL unknown) (unknown) (no (unknown) (unknown) Total Protein 7.3 (units (unknown) date) (6.3-8.2) g/dL unknown) (unknown) (no (unknown) (unknown) Tremor ?> 1 = Not (units (unknown) date) visible, but can be unknown) felt fingertip to fingertip (unknown) (no (unknown) (unknown) U Benzodiazepines (units (unknown) date) Scrn (Negative) unknown) (unknown) (no (unknown) (unknown) U Benzodiazepines (units (unknown) date) Scrn Negative unknown) (Negative) (unknown) (no (unknown) (unknown) U Marijuana (THC) (units (unknown) date) Screen (Negative) unknown) (unknown) (no (unknown) (unknown) U Marijuana (THC) (units (unknown) date) Screen Negative unknown) (Negative) (unknown) (no (unknown) (unknown) U Methamphetamines (units (unknown) date) Scrn (Negative) unknown) (unknown) (no (unknown) (unknown) U Methamphetamines (units (unknown) date) Scrn Negative unknown) (Negative) (unknown) (no (unknown) (unknown) U Opiates 300ng/mL (units (unknown) date) cut (Negative) unknown) (unknown) (no (unknown) (unknown) U Opiates 300ng/mL (units (unknown) date) cut Negative unknown) (Negative) (unknown) (no (unknown) (unknown) U Tricyclic (units (un known) date) Antidepress unknown) (Negative) (unknown) (no (unknown) (unknown) U Tricyclic (units (un known) date) Antidepress unknown) Negative (Negative) (unknown) (no (unknown) (unknown) Ur Amphetamines (units (unknown) date) Screen (Negative) unknown) (unknown) (no (unknown) (unknown) Ur Amphetamines (units (unknown) date) Screen Negative unknown) (Negative) (unknown) (no (unknown) (unknown) Ur Barbiturates (units (unknown) date) Screen (Negative) unknown) (unknown) (no (unknown) (unknown) Ur Barbiturates (units (unknown) date) Screen Negative unknown) (Negative) (unknown) (no (unknown) (unknown) Ur Culture (units (unk nown) date) Indicated? Specimen unknown) cultured (unknown) (no (unknown) (unknown) Ur Culture (units (unk nown) date) Indicated? unknown) (unknown) (no (unknown) (unknown) Ur MDMA Scrn (units (u nknown) date) (Ecstasy) unknown) (Negative) (unknown) (no (unknown) (unknown) Ur MDMA Scrn (units (u nknown) date) (Ecstasy) Negative unknown) (Negative) (unknown) (no (unknown) (unknown) Ur Oxycodone (units (u nknown) date) Screen (Negative) unknown) (unknown) (no (unknown) (unknown) Ur Oxycodone (units (u nknown) date) Screen Negative unknown) (Negative) (unknown) (no (unknown) (unknown) Ur Phencyclidine (units (unknown) date) Scrn (Negative) unknown) (unknown) (no (unknown) (unknown) Ur Phencyclidine (units (unknown) date) Scrn Negative unknown) (Negative) (unknown) (no (unknown) (unknown) Ur Squamous Epith (units (unknown) date) Cells (0-5/HPF) unknown) (unknown) (no (unknown) (unknown) Ur Squamous Epith (units (unknown) date) Cells 1-5 /hpf unknown) (0-5/HPF) (unknown) (no (unknown) (unknown) Urine Bacteria (units (unknown) date) (None) unknown) (unknown) (no (unknown) (unknown) Urine Bacteria (units (unknown) date) Many (>30) H (None) unknown) (unknown) (no (unknown) (unknown) Urine Cocaine (units ( unknown) date) Screen (Negative) unknown) (unknown) (no (unknown) (unknown) Urine Cocaine (units ( unknown) date) Screen Negative unknown) (Negative) (unknown) (no (unknown) (unknown) Urine Culture Stat (units (unknown) date) unknown) (unknown) (no (unknown) (unknown) Urine Dip (units (unkn own) date) unknown) (unknown) (no (unknown) (unknown) Urine Drug Screen, (units (unknown) date) Rapid Stat unknown) (unknown) (no (unknown) (unknown) Urine Methadone (units (unknown) date) Screen (Negative) unknown) (unknown) (no (unknown) (unknown) Urine Methadone (units (unknown) date) Screen Negative unknown) (Negative) (unknown) (no (unknown) (unknown) Urine Microscopic (units (unknown) date) Stat unknown) (unknown) (no (unknown) (unknown) Urine RBC (units (unkn own) date) (0-5/HPF) unknown) (unknown) (no (unknown) (unknown) Urine RBC 1-5/hpf (units (unknown) date) (0-5/HPF) unknown) (unknown) (no (unknown) (unknown) Urine Specific (units (unknown) date) [place] 1.015 unknown) (unknown) (no (unknown) (unknown) Urine WBC (units (unkn own) date) (0-5/HPF) unknown) (unknown) (no (unknown) (unknown) Urine WBC 1-5/hpf (units (unknown) date) (0-5/HPF) unknown) (unknown) (no (unknown) (unknown) Urine microscopy (units (unknown) date) with many bacteria, unknown) pending for culture, will treat for acute (unknown) (no (unknown) (unknown) Visual (units (unkno wn) date) disturbances ?> 1 = unknown) Very mild sensitivity (unknown) (no (unknown) (unknown) Vital Signs - 8 hr (units (unknown) date) unknown) (unknown) (no (unknown) (unknown) Vital Signs (units (un known) date) unknown) (unknown) (no (unknown) (unknown) Vital signs: (units (u nknown) date) unknown) (unknown) (no (unknown) (unknown) WBC (4.5-11.0) (units (unknown) date) X103/uL unknown) (unknown) (no (unknown) (unknown) WBC 3.3 L (units (unkn own) date) (4.5-11.0) X103/uL unknown) (unknown) (no (unknown) (unknown) [Embedded Image (units (unknown) date) Not Available] unknown) (unknown) (no (unknown) (unknown) [METOCLOPRAMIDE] (units (unknown) date) unknown) (unknown) (no (unknown) (unknown) acceptable. She is (units (unknown) date) nauseated, without unknown) vomiting, received Zofran previously and (unknown) (no (unknown) (unknown) acetaminophen 325 (units (unknown) date) mg tablet 325 mg PO unknown) Q6H PRN pain #20 tabs 02/05/20 (unknown) (no (unknown) (unknown) acetaminophen (units ( unknown) date) [Tylenol] 325 mg unknown) tablet (unknown) (no (unknown) (unknown) alcohol in 300s, (units (unknown) date) she was last here unknown) in the emergency department in May of (unknown) (no (unknown) (unknown) alcohol intake (units (unknown) date) frequency: 3 or unknown) more drinks per day (unknown) (no (unknown) (unknown) alcohol intake: (units (unknown) date) former unknown) (unknown) (no (unknown) (unknown) and below (units (unkn own) date) unknown) (unknown) (no (unknown) (unknown) and cooperative (units (unknown) date) unknown) (unknown) (no (unknown) (unknown) arrhythmia, or (units (unknown) date) acute ischemic unknown) changes. (unknown) (no (unknown) (unknown) at extension and (units (unknown) date) states that she unknown) feels symptoms of alcohol withdrawal. Denies (unknown) (no (unknown) (unknown) being depressed at (units (unknown) date) this time, CIWA is unknown) an 8. (unknown) (no (unknown) (unknown) bpm with rightward (units (unknown) date) axis and normal unknown) intervals. No STEMI, ST segment changes, (unknown) (no (unknown) (unknown) current (units (unkno wn) date) occupational unknown) exposures/hazards: Yes (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 with Pandemic ) (unknown) (no (unknown) (unknown) cystitis without (units (unknown) date) hematuria unknown) (unknown) (no (unknown) (unknown) cystitis (units (unkno wn) date) unknown) (unknown) (no (unknown) (unknown) cystitis, she is (units (unknown) date) p.o. tolerant, unknown) still pending lab work (unknown) (no (unknown) (unknown) deliver since it (units (unknown) date) is after 17:00 and unknown) the diet order was ordered at 17:30. Samira (unknown) (no (unknown) (unknown) detox as well. (units (unknown) date) unknown) (unknown) (no (unknown) (unknown) diarrhea or (units (un known) date) current stool unknown) changes. (unknown) (no (unknown) (unknown) diphenhydramine (units (unknown) [...] mg unknown) capsule (unknown) (no (unknown) (unknown) draw her labs (units ( unknown) date) unknown) (unknown) (no (unknown) (unknown) education level: (units (unknown) date) college unknown) (unknown) (no (unknown) (unknown) electrolyte (units (un known) date) abnormalities. unknown) (unknown) (no (unknown) (unknown) emergency (units (unkn own) date) department on unknown) 06/18/2022 and a few days prior to that with a blood (unknown) (no (unknown) (unknown) renee/zoroastrianism: (units (unknown) date) Buddhist unknown) (unknown) (no (unknown) (unknown) fluid, EtOH, and (units (unknown) date) CIWA, ordered 2 mg unknown) of IV lorazepam for patient's symptoms, (unknown) (no (unknown) (unknown) for alcohol (units (un known) date) related complaints unknown) through 2019, and she presented to the [facility] (unknown) (no (unknown) (unknown) from social work (units (unknown) date) is aware and unknown) pending her lab work to arrange for inpatient (unknown) (no (unknown) (unknown) her urine (units (unkn own) date) microscopy came unknown) back positive for many bacteria, will treat for acute (unknown) (no (unknown) (unknown) household members: (units (unknown) date) spouse and children unknown) (unknown) (no (unknown) (unknown) hydrocodone (units (un known) date) [HYDROCODONE] unknown) AdvReac Unknown VOMITING Verified 07/12/22 16:18 (unknown) (no (unknown) (unknown) hydrocodone. She (units (unknown) date) denies urinary unknown) frequency, urgency or flank pain, endorses (unknown) (no (unknown) (unknown) ibuprofen 600 mg (units (unknown) date) Tablet unknown) (unknown) (no (unknown) (unknown) ibuprofen 600 mg (units (unknown) date) tablet 600 mg PO unknown) Q6HR PRN Pain, Mild 07/04/20 (unknown) (no (unknown) (unknown) injuries, denies (units (unknown) date) chance of unknown) , denies any other ingestions, is pleasant, (unknown) (no (unknown) (unknown) intoxicated (units (un known) date) endorses symptoms unknown) of alcohol withdrawal. Patient states that she (unknown) (no (unknown) (unknown) intoxicated, (units (un known) date) pleasant, unknown) interactive and comfortable although active and fidgeting (unknown) (no (unknown) (unknown) is 338, COVID PCR (units (unknown) date) was negative, drug unknown) screen is negative for all tested agents, (unknown) (no (unknown) (unknown) is allergic to (units ( unknown) date) Reglan, will dose unknown) with another 5 mg of Zofran, no QT prolongation (unknown) (no (unknown) (unknown) limited history (units (unknown) date) currently due to unknown) intoxication. She states that she is recently (unknown) (no (unknown) (unknown) lorazepam at 2 mg (units (unknown) date) for this. unknown) (unknown) (no (unknown) (unknown) marital status: (units (unknown) date) unknown) (unknown) (no (unknown) (unknown) medicine with her, (units (unknown) date) she only has the unknown) Seroquel. Patient has allergy to Reglan and (unknown) (no (unknown) (unknown) metoclopramide (units (unknown) date) Allergy Mild unknown) RASH/HIVES Verified 07/12/22 16:18 (unknown) (no (unknown) (unknown) mild anemia but (units (unknown) date) improved from her unknown) prior with H+H of 11.5 and 35.3, no evidence (unknown) (no (unknown) (unknown) nausea vomiting or (units (unknown) date) abdominal pain at unknown) this time. Denies any vomiting home or (unknown) (no (unknown) (unknown) nausea without (units (unknown) date) vomiting. unknown) (unknown) (no (unknown) (unknown) number of (units (unkn own) date) children: 1 unknown) (unknown) (no (unknown) (unknown) numbness (units (unkno wn) date) unknown) (unknown) (no (unknown) (unknown) occupational (units (u nknown) date) status: employed unknown) (unknown) (no (unknown) (unknown) of bleeding (units (un known) date) anywhere, CMP unknown) (unknown) (no (unknown) (unknown) on her EKG, (units (un known) date) patient is alert unknown) and oriented x3, complaining of feeling poorly and (unknown) (no (unknown) (unknown) ondansetron 4 mg [...] tablet,disintegrati unknown) ng (unknown) (no (unknown) (unknown) ordered p.o. (units (u nknown) date) Ativan for her unknown) symptoms and ask our into call lab to come up and (unknown) (no (unknown) (unknown) prenat.vits,otis,mi (units (unknown) date) [id number] 1 tab unknown) PO DAILY 12/30/19 07/03/20 (unknown) (no (unknown) (unknown) prenat.vits,otis,mi (units (unknown) date) [id number] Tablet unknown) (unknown) (no (unknown) (unknown) relapsed due to a (units (unknown) date) divorce with her unknown) . 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 She is currently (unknown) (no (unknown) (unknown) significant tremor (units (unknown) date) or tongue unknown) fasciculation, she has a mild tremor with her arms (unknown) (no (unknown) (unknown) social work and (units (unknown) date) orders are pending unknown) (unknown) (no (unknown) (unknown) special renee (units ( unknown) date) needs: No unknown) (unknown) (no (unknown) (unknown) substance abuse, (units (unknown) date) alcohol unknown) intoxication, psychosis, mood disorder, depression (unknown) (no (unknown) (unknown) substance use (units ( unknown) date) type: does not use unknown) (unknown) (no (unknown) (unknown) tablet vomiting (units (unknown) date) #14 tabs unknown) (unknown) (no (unknown) (unknown) tablet vomiting (units (unknown) date) #20 tabs unknown) (unknown) (no (unknown) (unknown) tablet vomiting (units (unknown) date) #30 tabs unknown) (unknown) (no (unknown) (unknown) takes Seroquel 300 (units (unknown) date) mg at night as well unknown) as Librium but she does not have this (unknown) (no (unknown) (unknown) tenderness or (units ( unknown) date) exquisite unknown) tenderness with exam. (unknown) (no (unknown) (unknown) that she drinks (units (unknown) date) vodka and admits to unknown) drinking heavily today, states that she took (unknown) (no (unknown) (unknown) the bottle upside (units (unknown) date) down and started unknown) checking from it. She denies any recent (unknown) (no (unknown) (unknown) thyroid studies (units (unknown) date) are still pending. unknown) No significant findings to her CMP. No (unknown) (no (unknown) (unknown) tramadol 50 mg (units (unknown) date) tablet 50 mg PO Q6H unknown) PRN pain #10 tabs 06/12/22 (unknown) (no (unknown) (unknown) tramadol 50 mg (units (unknown) date) tablet unknown) (unknown) (no (unknown) (unknown) tremors, no (units (un known) date) tachycardia, her unknown) CIWA is currently 10, ordered another p.o. dose of (unknown) (no (unknown) (unknown) well as prior (units ( unknown) date) records if unknown) available. (unknown) (no (unknown) (unknown) wheezing, stridor, (units (unknown) date) or abnormal breath unknown) sounds. No retractions or tachypnea. Result panel [id number] (unknown) (no (unknown) (unknown) (no value) (units (unk nown) date) unknown) (unknown) (no (unknown) (unknown) (1-3) #30 tabs (units (unknown) date) unknown) (unknown) (no (unknown) (unknown) (Benadryl) caps (units (unknown) date) unknown) (unknown) (no (unknown) (unknown) (Colace) (units (unkno wn) date) unknown) (unknown) (no (unknown) (unknown) (Tylenol) (units (unkn own) date) unknown) (unknown) (no (unknown) (unknown) [id number] (units (unkn own) date) unknown) (unknown) (no (unknown) (unknown) 07/12/22 07/12/22 (units (unknown) date) 07/12/22 unknown) Range/Units (unknown) (no (unknown) (unknown) 07/12/22 16:28 (units (unknown) date) unknown) (unknown) (no (unknown) (unknown) 07/12/22 16:32 (units (unknown) date) unknown) (unknown) (no (unknown) (unknown) 07/12/22 18:28 (units (unknown) date) unknown) (unknown) (no (unknown) (unknown) 07/12/22 19:15 (units (unknown) date) unknown) (unknown) (no (unknown) (unknown) 07/12/22 (units (unkno wn) date) unknown) (unknown) (no (unknown) (unknown) 1 tab PO DAILY (units (unknown) date) unknown) (unknown) (no (unknown) (unknown) 100 mg PO BID Qty: (units (unknown) date) 30 0RF unknown) (unknown) (no (unknown) (unknown) 16:10 07/12/22 (units (unknown) date) unknown) (unknown) (no (unknown) (unknown) 16:32 16:32 16:32 (units (unknown) date) unknown) (unknown) (no (unknown) (unknown) 183 patient still (units (unknown) date) does not have an unknown) IV, has not received any IV fluid her (unknown) (no (unknown) (unknown) 18:53 (units (unkno wn) date) unknown) (unknown) (no (unknown) (unknown) 1899 still no IV, (units (unknown) date) patient is p.o. unknown) challenging, she received her p.o. lorazepam, (unknown) (no (unknown) (unknown) 1929, patient now (units (unknown) date) feels depressed, unknown) she is lying in bed, feeling bad, has (unknown) (no (unknown) (unknown) 19:15 19:15 19:15 (units (unknown) date) unknown) (unknown) (no (unknown) (unknown) 1999 patient is (units (unknown) date) feeling better now, unknown) her lab work is starting to return and ETOH (unknown) (no (unknown) (unknown) 2002 patient (units (u nknown) date) requests to take unknown) her home dosing of Seroquel 300 mg, this is (unknown) (no (unknown) (unknown) 2022 with similar (units (unknown) date) symptoms. She comes unknown) in complaining of needing help, states (unknown) (no (unknown) (unknown) 25 mg PO [...] Qty: 30 0RF (unknown) (no (unknown) (unknown) 750 mL of time. (units (unknown) date) She just she has unknown) nothing to do but relapsed. This 3 weeks ago (unknown) (no (unknown) (unknown) 9 points (units (unkno wn) date) unknown) (unknown) (no (unknown) (unknown) ALT (<35) IU/L (units (unknown) date) unknown) (unknown) (no (unknown) (unknown) ALT 21 (<35) IU/L (units (unknown) date) unknown) (unknown) (no (unknown) (unknown) AST (14-36) IU/L (units (unknown) date) unknown) (unknown) (no (unknown) (unknown) AST 67 H (14-36) (units (unknown) date) IU/L unknown) (unknown) (no (unknown) (unknown) Acetaminophen < 10 (units (unknown) date) (10-30) ug/mL unknown) (unknown) (no (unknown) (unknown) Acetaminophen (units ( unknown) date) (10-30) ug/mL unknown) (unknown) (no (unknown) (unknown) Acetaminophen Stat (units (unknown) date) unknown) (unknown) (no (unknown) (unknown) Acute cystitis (units (unknown) date) unknown) (unknown) (no (unknown) (unknown) Age/Sex: 31 / F (units (unknown) date) unknown) (unknown) (no (unknown) (unknown) Agitation ?> 2 = (units (unknown) date) (More severe unknown) symptoms) (unknown) (no (unknown) (unknown) Albumin (3.5-5.0) (units (unknown) date) g/dL unknown) (unknown) (no (unknown) (unknown) Albumin 4.3 (units (un known) date) (3.5-5.0) g/dL unknown) (unknown) (no (unknown) (unknown) Albumin/Globulin (units (unknown) date) Ratio (1.0-2.8) unknown) (unknown) (no (unknown) (unknown) Albumin/Globulin (units (unknown) date) Ratio 1.4 (1.0-2.8) unknown) (unknown) (no (unknown) (unknown) Alcohol use (units (un known) date) disorder unknown) (unknown) (no (unknown) (unknown) Alcoholism (units (unk nown) date) unknown) (unknown) (no (unknown) (unknown) Alkaline (units (unkno wn) date) Phosphatase unknown) (38-126) U/L (unknown) (no (unknown) (unknown) Alkaline (units (unkno wn) date) Phosphatase 98 unknown) (38-126) U/L (unknown) (no (unknown) (unknown) Allergies (units (unkn own) date) unknown) (unknown) (no (unknown) (unknown) Allergy/AdvReac (units (unknown) date) Type Severity unknown) Reaction Status Date / Time (unknown) (no (unknown) (unknown) Anemia (-2018) (units (unknown) date) unknown) (unknown) (no (unknown) (unknown) Anxiety ?> 2 = (units (unknown) date) (More severe unknown) symptoms) (unknown) (no (unknown) (unknown) Auditory (units (unkno wn) date) disturbances ?> 1 = unknown) Very mild harshness or ability to frighten (unknown) (no (unknown) (unknown) BUN (7-17) mg/dL (units (unknown) date) unknown) (unknown) (no (unknown) (unknown) BUN 9 (7-17) mg/dL (units (unknown) date) unknown) (unknown) (no (unknown) (unknown) BUN/Creatinine (units (unknown) date) Ratio (6-22) unknown) (unknown) (no (unknown) (unknown) BUN/Creatinine (units (unknown) date) Ratio 11.0 (6-22) unknown) (unknown) (no (unknown) (unknown) Baso # (Auto) (units ( unknown) date) (0-100) /uL unknown) (unknown) (no (unknown) (unknown) Baso # (Auto) 0 (units (unknown) date) (0-100) /uL unknown) (unknown) (no (unknown) (unknown) Baso % (Auto) (units ( unknown) date) (0-2) % unknown) (unknown) (no (unknown) (unknown) Baso % (Auto) 0.9 (units (unknown) date) (0-2) % unknown) (unknown) (no (unknown) (unknown) Bedside Urine (units ( unknown) date) Bilirubin - unknown) Negative (unknown) (no (unknown) (unknown) Bedside Urine (units ( unknown) date) Glucose Negative unknown) (unknown) (no (unknown) (unknown) Bedside Urine (units ( unknown) date) Ketone - Negative unknown) (unknown) (no (unknown) (unknown) Bedside Urine (units ( unknown) date) Leukocytes - unknown) Negative (unknown) (no (unknown) (unknown) Bedside Urine (units ( unknown) date) Nitrite + Positive unknown) (unknown) (no (unknown) (unknown) Bedside Urine (units ( unknown) date) Occult Blood - unknown) Negative (unknown) (no (unknown) (unknown) Bedside Urine (units ( unknown) date) Protein - Negative unknown) (unknown) (no (unknown) (unknown) Bedside Urine (units ( unknown) date) Urobilinogen - unknown) Negative (unknown) (no (unknown) (unknown) Bedside Urine pH (units (unknown) date) 6.0 unknown) (unknown) (no (unknown) (unknown) Blood Pressure (units (unknown) date) 112/62 07/12/22 unknown) 16:10 (unknown) (no (unknown) (unknown) Blood Pressure (units (unknown) date) 112/62 unknown) (unknown) (no (unknown) (unknown) Blood Pressure (units (unknown) date) [Left Arm] 100/59 L unknown) (unknown) (no (unknown) (unknown) CIWA is now worse (units (unknown) date) and she has unknown) tremors, anxiety is worsening and agitation, (unknown) (no (unknown) (unknown) CIWA-Ar for (units (un known) date) Alcohol Withdrawal unknown) from [facility] on 07/12/2022 (unknown) (no (unknown) (unknown) COVID19 -Nasal (units (unknown) date) RAPID/Pre-Proc Stat unknown) (unknown) (no (unknown) (unknown) Calcium (8.4-10.2) (units (unknown) date) mg/dL unknown) (unknown) (no (unknown) (unknown) Calcium 8.0 L (units ( unknown) date) (8.4-10.2) mg/dL unknown) (unknown) (no (unknown) (unknown) Carbon Dioxide (units (unknown) date) (22-32) mmol/L unknown) (unknown) (no (unknown) (unknown) Carbon Dioxide 23 (units (unknown) date) (22-32) mmol/L unknown) (unknown) (no (unknown) (unknown) Cardiovascular: (units (unknown) date) regular rate and unknown) rhythm, no peripheral edema, warm extremities (unknown) (no (unknown) (unknown) Cephalexin HCl (units (unknown) date) (Cephalexin 250 Mg unknown) Capsule) 500 mg PO Q6H SANDY (unknown) (no (unknown) (unknown) Chief Complaint: (units (unknown) date) Alcohol unknown) intoxication, seeking detox (unknown) (no (unknown) (unknown) Chief Complaint: (units (unknown) date) Toxicology Problem unknown) (unknown) (no (unknown) (unknown) Chloride (98-107) (units (unknown) date) mmol/L unknown) (unknown) (no (unknown) (unknown) Chloride 104 (units (u nknown) date) (98-107) mmol/L unknown) (unknown) (no (unknown) (unknown) Clinical (units (unkno wn) date) Impression: unknown) (unknown) (no (unknown) (unknown) Clinical decision (units (unknown) date) rules or scores unknown) evaluated: CIWA of 9 at 1753 (unknown) (no (unknown) (unknown) Complete Blood (units (unknown) date) Count AUTO DIFF unknown) Stat (unknown) (no (unknown) (unknown) Comprehensive (units ( unknown) date) Metabolic Panel unknown) Stat (unknown) (no (unknown) (unknown) Consult to WINDOWS MIGRATION TECHNICIAN - (units (unknown) date) 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 unknown) Stat (unknown) (no (unknown) (unknown) Course of care: (units (unknown) date) Patient is a unknown) difficult IV stick, ordered IV with lab work, (unknown) (no (unknown) (unknown) Course (units (unkno wn) date) unknown) (unknown) (no (unknown) (unknown) Creatinine (units (unk nown) date) (0.52-1.04) mg/dL unknown) (unknown) (no (unknown) (unknown) Creatinine 0.82 (units (unknown) date) (0.52-1.04) mg/dL unknown) (unknown) (no (unknown) (unknown) : 1990 (units (unknown) date) Acct:[id number] unknown) (unknown) (no (unknown) (unknown) Date of Service: (units (unknown) date) 07/12/22 unknown) (unknown) (no (unknown) (unknown) Departure (units (unkn own) date) unknown) (unknown) (no (unknown) (unknown) Differential (units (u nknown) date) diagnoses include unknown) but are not limited to: Alcohol withdrawal, (unknown) (no (unknown) (unknown) Discharge Plan (units (unknown) date) unknown) (unknown) (no (unknown) (unknown) Discontinued (units (u nknown) date) Medications unknown) (unknown) (no (unknown) (unknown) Documented By: KB (units (unknown) date) unknown) (unknown) (no (unknown) (unknown) Documented By: OW (units (unknown) date) unknown) (unknown) (no (unknown) (unknown) ECG Data (units (unkno wn) date) unknown) (unknown) (no (unknown) (unknown) ED Orders (units (unkn own) date) unknown) (unknown) (no (unknown) (unknown) EKG independently (units (unknown) date) reviewed by myself unknown) at 1830 reveals normal sinus rhythm at 72 (unknown) (no (unknown) (unknown) EKG-12 Lead Stat (units (unknown) date) unknown) (unknown) (no (unknown) (unknown) ER Physician: (units ( unknown) date) Reinaldo Arthur D.O. unknown) (unknown) (no (unknown) (unknown) Emergency Report (units (unknown) date) unknown) (unknown) (no (unknown) (unknown) Eos # (Auto) (units (u nknown) date) (0-450) /uL unknown) (unknown) (no (unknown) (unknown) Eos # (Auto) 0 (units (unknown) date) (0-450) /uL unknown) (unknown) (no (unknown) (unknown) Eos % (Auto) (2-4) (units (unknown) date) % unknown) (unknown) (no (unknown) (unknown) Eos % (Auto) 0.3 L (units (unknown) date) (2-4) % unknown) (unknown) (no (unknown) (unknown) Esterase (units (unkno wn) date) unknown) (unknown) (no (unknown) (unknown) Estimated GFR > 60 (units (unknown) date) (>60) mL/min unknown) (unknown) (no (unknown) (unknown) Estimated GFR (units ( unknown) date) (>60) mL/min unknown) (unknown) (no (unknown) (unknown) Ethanol (ETOH) (units (unknown) date) Stat unknown) (unknown) (no (unknown) (unknown) Ethyl Alcohol ( - (units (unknown) date) 10) mg/dL unknown) (unknown) (no (unknown) (unknown) Ethyl Alcohol 338 (units (unknown) date) H ( - 10) mg/dL unknown) (unknown) (no (unknown) (unknown) Exam Narrative: (units (unknown) date) unknown) (unknown) (no (unknown) (unknown) Exam (units (unkno wn) date) unknown) (unknown) (no (unknown) (unknown) Family History (units (unknown) date) (Reviewed 07/12/22 unknown) @ 17:50 by LYUDMILA oD) (unknown) (no (unknown) (unknown) Family/Other (units (u nknown) date) Alcoholism unknown) (unknown) (no (unknown) (unknown) Family/Other (units (u nknown) date) Diabetes mellitus unknown) (unknown) (no (unknown) (unknown) Father Alcoholism (units (unknown) date) unknown) (unknown) (no (unknown) (unknown) Tonia Schneider MD (units (unknown) date) [Primary Care unknown) Provider] (unknown) (no (unknown) (unknown) Folic Acid (Folic (units (unknown) date) Acid 1 Mg Tablet) 1 unknown) mg PO DAILY SANDY (unknown) (no (unknown) (unknown) Free T4 (units (unkno wn) date) (0.78-2.19) ng/dL unknown) (unknown) (no (unknown) (unknown) Free T4 0.93 (units (u nknown) date) (0.78-2.19) ng/dL unknown) (unknown) (no (unknown) (unknown) Free T4, Direct (units (unknown) date) Thyroxine Stat unknown) (unknown) (no (unknown) (unknown) GI: abdomen soft, (units (unknown) date) nontender to unknown) palpation, nondistended, without masses, rebound (unknown) (no (unknown) (unknown) General (units (o wn) date) unknown) (unknown) (no (unknown) (unknown) General: (units (o wn) date) cooperative, unknown) comfortable, in no acute distress, well groomed, appears (unknown) (no (unknown) (unknown) Globulin (1.7-4.1) (units (unknown) date) g/dL unknown) (unknown) (no (unknown) (unknown) Globulin 3.0 (units (u nknown) date) (1.7-4.1) g/dL unknown) (unknown) (no (unknown) (unknown) Glucose (70-100) (units (unknown) date) mg/dL unknown) (unknown) (no (unknown) (unknown) Glucose 111 H (units ( unknown) date) (70-100) mg/dL [...] extraction (-2013) unknown) (unknown) (no (unknown) (unknown) HEENT: symmetrical (units (unknown) date) facial expressions, unknown) dry mucous membranes (unknown) (no (unknown) (unknown) HPI - Alcohol (units ( unknown) date) unknown) (unknown) (no (unknown) (unknown) HPI narrative: (units (unknown) date) unknown) (unknown) (no (unknown) (unknown) Hct (36-46) % (units ( unknown) date) unknown) (unknown) (no (unknown) (unknown) Hct 35.3 L (36-46) (units (unknown) date) % unknown) (unknown) (no (unknown) (unknown) Headache/fullness (units (unknown) date) in head ?> 1 = Very unknown) mild (unknown) (no (unknown) (unknown) Hematuria (units (unkn own) date) presence: without unknown) hematuria Qualified Code(s): N30.00 - Acute (unknown) (no (unknown) (unknown) Hgb (12.0-16.0) (units (unknown) date) g/dL unknown) (unknown) (no (unknown) (unknown) Hgb 11.5 L (units (unk nown) date) (12.0-16.0) g/dL unknown) (unknown) (no (unknown) (unknown) History of Present (units (unknown) date) Illness unknown) (unknown) (no (unknown) (unknown) Home Medications (units (unknown) date) unknown) (unknown) (no (unknown) (unknown) I have (units (unkno wn) date) independently unknown) reviewed the patient's vital signs and nursing notes as (unknown) (no (unknown) (unknown) INPUTS: (units (unkno wn) date) unknown) (unknown) (no (unknown) (unknown) Independent (units (un known) date) historian: Patient unknown) (unknown) (no (unknown) (unknown) Initial Vital (units ( unknown) date) Signs unknown) (unknown) (no (unknown) (unknown) Initial Vital (units ( unknown) date) Signs: unknown) (unknown) (no (unknown) (unknown) Insomnia (units (unkno wn) date) unknown) (unknown) (no (unknown) (unknown) Interpretation: (units (unknown) date) unknown) (unknown) (no (unknown) (unknown) [facility] (units (unknown) date) [address] unknown) [place] [address] (unknown) (no (unknown) (unknown) Lab Data (units (unkno wn) date) unknown) (unknown) (no (unknown) (unknown) Lab Results (units (un known) date) unknown) (unknown) (no (unknown) (unknown) Labs: (units (unkno wn) date) unknown) (unknown) (no (unknown) (unknown) Last Admin: (units (un known) date) 07/12/22 18:39 unknown) Dose: 4 mg (unknown) (no (unknown) (unknown) Last Admin: (units (un known) date) 07/12/22 18:40 unknown) Dose: 1 mg (unknown) (no (unknown) (unknown) Last Admin: (units (un known) date) 07/12/22 18:56 unknown) Dose: Not Given (unknown) (no (unknown) (unknown) Last Admin: (units (un known) date) 07/12/22 19:47 unknown) Dose: 500 mg (unknown) (no (unknown) (unknown) Last Admin: (units (un known) date) 07/12/22 19:48 unknown) Dose: 2 mg (unknown) (no (unknown) (unknown) Last Admin: (units (un known) date) 07/12/22 19:49 unknown) Dose: 100 mg (unknown) (no (unknown) (unknown) Librium but she (units (unknown) date) does not have this unknown) medicine with her, she only has the Seroquel. (unknown) (no (unknown) (unknown) Lorazepam (units (unkn own) date) (Lorazepam 0.5 Mg unknown) Tablet) 1 mg PO NOW ONE (unknown) (no (unknown) (unknown) Lorazepam (units (unkn own) date) (Lorazepam 0.5 Mg unknown) Tablet) 2 mg PO NOW ONE (unknown) (no (unknown) (unknown) Lorazepam (units (unkn own) date) (Lorazepam 2 Mg/Ml unknown) Inj) 2 mg IV NOW ONE (unknown) (no (unknown) (unknown) Lymph # (Auto) (units (unknown) date) (3726-7091) /uL unknown) (unknown) (no (unknown) (unknown) Lymph # (Auto) (units (unknown) date) 1700 ([id number]) unknown) /uL (unknown) (no (unknown) (unknown) Lymph % (Auto) (units (unknown) date) (25-40) % unknown) (unknown) (no (unknown) (unknown) Lymph % (Auto) (units (unknown) date) 50.6 H (25-40) % unknown) (unknown) (no (unknown) (unknown) MCH (26-34) PG (units (unknown) date) unknown) (unknown) (no (unknown) (unknown) MCH 26.0 (26-34) (units (unknown) date) PG unknown) (unknown) (no (unknown) (unknown) MCHC (30-36) % (units (unknown) date) unknown) (unknown) (no (unknown) (unknown) MCHC 32.7 (30-36) (units (unknown) date) % unknown) (unknown) (no (unknown) (unknown) MCV (80-100) fL (units (unknown) date) unknown) (unknown) (no (unknown) (unknown) MCV 79.5 L (units (unk nown) date) (80-100) fL unknown) (unknown) (no (unknown) (unknown) MDM - Alcohol (units ( unknown) date) unknown) (unknown) (no (unknown) (unknown) MDM Narrative (units ( unknown) date) unknown) (unknown) (no (unknown) (unknown) MIPS: This (units (unk nown) date) encounter doesn't unknown) have any diagnosis' associated with MIPS criteria. (unknown) (no (unknown) (unknown) MSK: moves all (units (unknown) date) extremities, unknown) neurovascularly intact, no weakness, normal tone no (unknown) (no (unknown) (unknown) Medical History (units (unknown) date) (Reviewed 07/12/22 unknown) @ 17:50 by ALEKSANDER DoP) (unknown) (no (unknown) (unknown) Medical decision (units (unknown) date) making narrative: unknown) (unknown) (no (unknown) (unknown) Medication (units (unk nown) date) Instructions unknown) Recorded Confirmed (unknown) (no (unknown) (unknown) Medication (units (unk nown) date) Instructions unknown) Recorded (unknown) (no (unknown) (unknown) Menometrorrhagia (units (unknown) date) unknown) (unknown) (no (unknown) (unknown) Mode of arrival: (units (unknown) date) Ambulatory unknown) (unknown) (no (unknown) (unknown) Yates # (Auto) (units ( unknown) date) (0-900) /uL unknown) (unknown) (no (unknown) (unknown) Yates # (Auto) 100 (units (unknown) date) (0-900) /uL unknown) (unknown) (no (unknown) (unknown) Yates % (Auto) (units ( unknown) date) (3-14) % unknown) (unknown) (no (unknown) (unknown) Yates % (Auto) 2.7 (units (unknown) date) L (3-14) % unknown) (unknown) (no (unknown) (unknown) Mother Diabetes (units (unknown) date) mellitus unknown) (unknown) (no (unknown) (unknown) Narrative (units (unkn own) date) unknown) (unknown) (no (unknown) (unknown) Nausea/vomiting ?> (units (unknown) date) 0 = No nausea and unknown) no vomiting (unknown) (no (unknown) (unknown) Neuro: normal (units ( unknown) date) speech and unknown) cognition, A+O x3, ambulatory, clear speech (unknown) (no (unknown) (unknown) Neut # (Auto) (units ( unknown) date) (7628-9050) /uL unknown) (unknown) (no (unknown) (unknown) Neut # (Auto) 1500 (units (unknown) date) (4843-2967) /uL unknown) (unknown) (no (unknown) (unknown) Neut % (Auto) (units ( unknown) date) (50-75) % unknown) (unknown) (no (unknown) (unknown) Neut % (Auto) 45.5 (units (unknown) date) L (50-75) % unknown) (unknown) (no (unknown) (unknown) No Action (units (unkn own) date) unknown) (unknown) (no (unknown) (unknown) Obesity (units (unkno wn) date) unknown) (unknown) (no (unknown) (unknown) Ondansetron HCl (units (unknown) date) (Ondansetron 4 Mg unknown) Odt) 4 mg SL NOW ONE (unknown) (no (unknown) (unknown) Ondansetron HCl (units (unknown) date) (Ondansetron 4 Mg/2 unknown) Ml Inj) 4 mg IV Q6HR PRN (unknown) (no (unknown) (unknown) Ordered: (units (unkno wn) date) unknown) (unknown) (no (unknown) (unknown) Orders (units (unkno wn) date) unknown) (unknown) (no (unknown) (unknown) Orientation/cloudi (units (unknown) date) ng of sensorium ?> unknown) 0 = Oriented, can do serial additions (unknown) (no (unknown) (unknown) Overweight (units (unk nown) date) unknown) (unknown) (no (unknown) (unknown) Oxygen Delivery (units (unknown) date) Method Room Air unknown) 07/12/22 16:10 (unknown) (no (unknown) (unknown) Oxygen Delivery (units (unknown) date) Method Room Air unknown) Room Air (unknown) (no (unknown) (unknown) PRN Reason: Nausea (units (unknown) date) And Vomiting unknown) (unknown) (no (unknown) (unknown) Paroxysmal sweats (units (unknown) date) ?> 0 = No sweat unknown) visible (unknown) (no (unknown) (unknown) Patient (units (unkno wn) date) Disposition: [facility]fer [facility] (no (unknown) (unknown) Patient History (units (unknown) date) unknown) (unknown) (no (unknown) (unknown) Patient has (units (un known) date) allergy to Reglan unknown) and hydrocodone. She denies urinary frequency, (unknown) (no (unknown) (unknown) Patient: (units (unkno wn) date) Sarah Connors R unknown) MR#: M (unknown) (no (unknown) (unknown) Patients with (units ( unknown) date) scores >= may unknown) require medication for withdrawal. (unknown) (no (unknown) (unknown) Pertinent lab (units ( unknown) date) findings reviewed: unknown) CBC is pertinent for mild leukopenia of 3.3, (unknown) (no (unknown) (unknown) Plt Count (units (unkn own) date) (150-400) X103/uL unknown) (unknown) (no (unknown) (unknown) Plt Count 226 (units ( unknown) date) (150-400) X103/uL unknown) (unknown) (no (unknown) (unknown) Point of Care (units ( unknown) date) Testing unknown) (unknown) (no (unknown) (unknown) Potassium (units (unkn own) date) (3.4-5.1) mmol/L unknown) (unknown) (no (unknown) (unknown) Potassium 3.9 (units ( unknown) date) (3.4-5.1) mmol/L unknown) (unknown) (no (unknown) (unknown) Test (units (unknown) date) Results Negative unknown) (unknown) (no (unknown) (unknown) Prescriptions: (units (unknown) date) unknown) (unknown) (no (unknown) (unknown) Previous Rx's (units ( unknown) date) unknown) (unknown) (no (unknown) (unknown) Psych: mental (units ( unknown) date) status is grossly unknown) normal, congruent mood, normal affect, pleasant (unknown) (no (unknown) (unknown) Pulse Oximetry 99 (units (unknown) date) 07/12/22 16:10 unknown) (unknown) (no (unknown) (unknown) Pulse Oximetry 99 (units (unknown) date) 99 unknown) (unknown) (no (unknown) (unknown) Pulse Rate 82 (units ( unknown) date) 07/12/22 16:10 unknown) (unknown) (no (unknown) (unknown) Pulse Rate 82 86 (units (unknown) date) unknown) (unknown) (no (unknown) (unknown) Qualifiers: (units (un known) date) unknown) (unknown) (no (unknown) (unknown) Questions are (units ( unknown) date) addressed and there unknown) is agreement with the plan and for follow-up. (unknown) (no (unknown) (unknown) RBC (4.0-5.2) (units ( unknown) date) X106/uL unknown) (unknown) (no (unknown) (unknown) RBC 4.44 (4.0-5.2) (units (unknown) date) X106/uL unknown) (unknown) (no (unknown) (unknown) RDW (11.6-14.8) % (units (unknown) date) unknown) (unknown) (no (unknown) (unknown) RDW 17.3 H (units (unk nown) date) (11.6-14.8) % unknown) (unknown) (no (unknown) (unknown) RESULT SUMMARY: (units (unknown) date) unknown) (unknown) (no (unknown) (unknown) ROS Unobtainable: (units (unknown) date) All systems unknown) reviewed + are unremarkable except as noted in HPI (unknown) (no (unknown) (unknown) Referrals: (units (unk nown) date) unknown) (unknown) (no (unknown) (unknown) Related Data (units (u nknown) date) unknown) (unknown) (no (unknown) (unknown) Respiratory Rate (units (unknown) date) 14 07/12/22 16:10 unknown) (unknown) (no (unknown) (unknown) Respiratory Rate (units (unknown) date) 14 22 unknown) (unknown) (no (unknown) (unknown) Respiratory: (units (u nknown) date) normal effort, able unknown) to speak in complete sentences, without (unknown) (no (unknown) (unknown) Review of Systems (units (unknown) date) unknown) (unknown) (no (unknown) (unknown) Reviewed vitals (units (unknown) date) signs and nursing unknown) notes. (unknown) (no (unknown) (unknown) S/P myringotomy (units (unknown) date) with insertion of unknown) tube (unknown) (no (unknown) (unknown) SARS-CoV-2 (PCR) (units (unknown) date) (Negative) unknown) (unknown) (no (unknown) (unknown) SARS-CoV-2 (PCR) (units (unknown) date) Negative (Negative) unknown) (unknown) (no (unknown) (unknown) (spontaneous (units (unknown) date) vaginal delivery) unknown) (-09/05/18) (unknown) (no (unknown) (unknown) Salicylate Stat (units (unknown) date) unknown) (unknown) (no (unknown) (unknown) Salicylates < 1.0 (units (unknown) date) (<20) mg/dL unknown) (unknown) (no (unknown) (unknown) Salicylates (<20) (units (unknown) date) mg/dL unknown) (unknown) (no (unknown) (unknown) She was given a (units (unknown) date) couple water, a unknown) diet order was ordered however they may not (unknown) (no (unknown) (unknown) Signed By: (units (unk nown) date) unknown) (unknown) (no (unknown) (unknown) Skin: brisk (units (un known) date) capillary refill, unknown) without pallor or erythema (unknown) (no (unknown) (unknown) Smoker (units (unkno wn) date) unknown) (unknown) (no (unknown) (unknown) [place] and (units (unknown) date) [facility] in the unknown) past. She has been sober for a total of 18 (unknown) (no (unknown) (unknown) Smoking Status: (units (unknown) date) Former smoker unknown) (unknown) (no (unknown) (unknown) Social History (units (unknown) date) (Reviewed 07/12/22 unknown) @ 17:50 by Juliet Paz [facility]) (unknown) (no (unknown) (unknown) Social (units (unkno wn) date) considerations that unknown) may affect disposition: none (unknown) (no (unknown) (unknown) Sodium (137-145) (units (unknown) date) mmol/L unknown) (unknown) (no (unknown) (unknown) Sodium 140 (units (unk nown) date) (137-145) mmol/L unknown) (unknown) (no (unknown) (unknown) Sodium Chloride (units (unknown) date) (Normal Saline unknown) 0.9%) 1,000 mls @ 1,000 mls/hr IV BOLUS ONE (unknown) (no (unknown) (unknown) Source: patient (units (unknown) date) unknown) (unknown) (no (unknown) (unknown) Stated Complaint: (units (unknown) date) Stress/Depression unknown) (unknown) (no (unknown) (unknown) Stop: 07/12/22 (units (unknown) date) 17:33 unknown) (unknown) (no (unknown) (unknown) Stop: 07/12/22 (units (unknown) date) 17:45 unknown) (unknown) (no (unknown) (unknown) Stop: 07/12/22 (units (unknown) date) 18:28 unknown) (unknown) (no (unknown) (unknown) Stop: 07/12/22 (units (unknown) date) 18:31 unknown) (unknown) (no (unknown) (unknown) Stop: 07/12/22 (units (unknown) date) 19:25 unknown) (unknown) (no (unknown) (unknown) Stop: 07/12/22 (units (unknown) date) 20:03 unknown) (unknown) (no (unknown) (unknown) Substance Use (units ( unknown) date) Type: does not use unknown) (unknown) (no (unknown) (unknown) Surgical History (units (unknown) date) (Reviewed 07/12/22 unknown) @ 17:50 by Juliet Paz [facility]) (unknown) (no (unknown) (unknown) Tactile (units (unkno wn) date) disturbances ?> 1 = unknown) Very mild itching, pin and needles, burning, or (unknown) (no (unknown) (unknown) Temperature 97.2 F (units (unknown) date) L 07/12/22 16:10 unknown) (unknown) (no (unknown) (unknown) Temperature 97.2 F (units (unknown) date) L unknown) (unknown) (no (unknown) (unknown) Thiamine HCl (units (u nknown) date) (Thiamine 100 Mg unknown) Tablet) 100 mg PO NOW ONE (unknown) (no (unknown) (unknown) Thiamine HCl 200 (units (unknown) date) mg/ Sodium unknown) (Chloride) 102 mls @ 408 mls/hr IV NOW ONE (unknown) (no (unknown) (unknown) This is a (units (unkn own) date) 31-year-old female unknown) with history of alcohol abuse and appears to have (unknown) (no (unknown) (unknown) Thyroid (units (unkno wn) date) Stimulating Hormone unknown) Stat (unknown) (no (unknown) (unknown) Time Seen by (units (u nknown) date) Provider: 07/12/22 unknown) 17:05 (unknown) (no (unknown) (unknown) Total Bilirubin (units (unknown) date) (0.2-1.3) mg/dL unknown) (unknown) (no (unknown) (unknown) Total Bilirubin (units (unknown) date) 0.4 (0.2-1.3) mg/dL unknown) (unknown) (no (unknown) (unknown) Total Protein (units ( unknown) date) (6.3-8.2) g/dL unknown) (unknown) (no (unknown) (unknown) Total Protein 7.3 (units (unknown) date) (6.3-8.2) g/dL unknown) (unknown) (no (unknown) (unknown) Tremor ?> 1 = Not (units (unknown) date) visible, but can be unknown) felt fingertip to fingertip (unknown) (no (unknown) (unknown) U Benzodiazepines (units (unknown) date) Scrn (Negative) unknown) (unknown) (no (unknown) (unknown) U Benzodiazepines (units (unknown) date) Scrn Negative unknown) (Negative) (unknown) (no (unknown) (unknown) U Marijuana (THC) (units (unknown) date) Screen (Negative) unknown) (unknown) (no (unknown) (unknown) U Marijuana (THC) (units (unknown) date) Screen Negative unknown) (Negative) (unknown) (no (unknown) (unknown) U Methamphetamines (units (unknown) date) Scrn (Negative) unknown) (unknown) (no (unknown) (unknown) U Methamphetamines (units (unknown) date) Scrn Negative unknown) (Negative) (unknown) (no (unknown) (unknown) U Opiates 300ng/mL (units (unknown) date) cut (Negative) unknown) (unknown) (no (unknown) (unknown) U Opiates 300ng/mL (units (unknown) date) cut Negative unknown) (Negative) (unknown) (no (unknown) (unknown) U Tricyclic (units (un known) date) Antidepress unknown) (Negative) (unknown) (no (unknown) (unknown) U Tricyclic (units (un known) date) Antidepress unknown) Negative (Negative) (unknown) (no (unknown) (unknown) Ur Amphetamines (units (unknown) date) Screen (Negative) unknown) (unknown) (no (unknown) (unknown) Ur Amphetamines (units (unknown) date) Screen Negative unknown) (Negative) (unknown) (no (unknown) (unknown) Ur Barbiturates (units (unknown) date) Screen (Negative) unknown) (unknown) (no (unknown) (unknown) Ur Barbiturates (units (unknown) date) Screen Negative unknown) (Negative) (unknown) (no (unknown) (unknown) Ur Culture (units (unk nown) date) Indicated? Specimen unknown) cultured (unknown) (no (unknown) (unknown) Ur Culture (units (unk nown) date) Indicated? unknown) (unknown) (no (unknown) (unknown) Ur MDMA Scrn (units (u nknown) date) (Ecstasy) unknown) (Negative) (unknown) (no (unknown) (unknown) Ur MDMA Scrn (units (u nknown) date) (Ecstasy) Negative unknown) (Negative) (unknown) (no (unknown) (unknown) Ur Oxycodone (units (u nknown) date) Screen (Negative) unknown) (unknown) (no (unknown) (unknown) Ur Oxycodone (units (u nknown) date) Screen Negative unknown) (Negative) (unknown) (no (unknown) (unknown) Ur Phencyclidine (units (unknown) date) Scrn (Negative) unknown) (unknown) (no (unknown) (unknown) Ur Phencyclidine (units (unknown) date) Scrn Negative unknown) (Negative) (unknown) (no (unknown) (unknown) Ur Squamous Epith (units (unknown) date) Cells (0-5/HPF) unknown) (unknown) (no (unknown) (unknown) Ur Squamous Epith (units (unknown) date) Cells 1-5 /hpf unknown) (0-5/HPF) (unknown) (no (unknown) (unknown) Urine Bacteria (units (unknown) date) (None) unknown) (unknown) (no (unknown) (unknown) Urine Bacteria (units (unknown) date) Many (>30) H (None) unknown) (unknown) (no (unknown) (unknown) Urine Cocaine (units ( unknown) date) Screen (Negative) unknown) (unknown) (no (unknown) (unknown) Urine Cocaine (units ( unknown) date) Screen Negative unknown) (Negative) (unknown) (no (unknown) (unknown) Urine Culture Stat (units (unknown) date) unknown) (unknown) (no (unknown) (unknown) Urine Dip (units (unkn own) date) unknown) (unknown) (no (unknown) (unknown) Urine Drug Screen, (units (unknown) date) Rapid Stat unknown) (unknown) (no (unknown) (unknown) Urine Methadone (units (unknown) date) Screen (Negative) unknown) (unknown) (no (unknown) (unknown) Urine Methadone (units (unknown) date) Screen Negative unknown) (Negative) (unknown) (no (unknown) (unknown) Urine Microscopic (units (unknown) date) Stat unknown) (unknown) (no (unknown) (unknown) Urine RBC (units (unkn own) date) (0-5/HPF) unknown) (unknown) (no (unknown) (unknown) Urine RBC 1-5/hpf (units (unknown) date) (0-5/HPF) unknown) (unknown) (no (unknown) (unknown) Urine Specific (units (unknown) date) [place] 1.015 unknown) (unknown) (no (unknown) (unknown) Urine WBC (units (unkn own) date) (0-5/HPF) unknown) (unknown) (no (unknown) (unknown) Urine WBC 1-5/hpf (units (unknown) date) (0-5/HPF) unknown) (unknown) (no (unknown) (unknown) Urine microscopy (units (unknown) date) with many bacteria, unknown) pending for culture, will treat for acute (unknown) (no (unknown) (unknown) Visual (units (unkno wn) date) disturbances ?> 1 = unknown) Very mild sensitivity (unknown) (no (unknown) (unknown) Vital Signs - 8 hr (units (unknown) date) unknown) (unknown) (no (unknown) (unknown) Vital Signs (units (un known) date) unknown) (unknown) (no (unknown) (unknown) Vital signs: (units (u nknown) date) unknown) (unknown) (no (unknown) (unknown) WBC (4.5-11.0) (units (unknown) date) X103/uL unknown) (unknown) (no (unknown) (unknown) WBC 3.3 L (units (unkn own) date) (4.5-11.0) X103/uL unknown) (unknown) (no (unknown) (unknown) [Embedded Image (units (unknown) date) Not Available] unknown) (unknown) (no (unknown) (unknown) [METOCLOPRAMIDE] (units (unknown) date) unknown) (unknown) (no (unknown) (unknown) acceptable. She is (units (unknown) date) nauseated, without unknown) vomiting, received Zofran previously and (unknown) (no (unknown) (unknown) acetaminophen 325 (units (unknown) date) mg tablet 325 mg PO unknown) Q6H PRN pain #20 tabs 02/05/20 (unknown) (no (unknown) (unknown) acetaminophen (units ( unknown) date) [Tylenol] 325 mg unknown) tablet (unknown) (no (unknown) (unknown) alcohol in 300s, (units (unknown) date) she was last here unknown) in the emergency department in May of (unknown) (no (unknown) (unknown) alcohol intake (units (unknown) date) frequency: 3 or unknown) more drinks per day (unknown) (no (unknown) (unknown) alcohol intake: (units (unknown) date) former unknown) (unknown) (no (unknown) (unknown) and below (units (unkn own) date) unknown) (unknown) (no (unknown) (unknown) and cooperative (units (unknown) date) unknown) (unknown) (no (unknown) (unknown) and she drinking (units (unknown) date) daily since this unknown) happened. She wants rehab. She has been (unknown) (no (unknown) (unknown) arrhythmia, or (units (unknown) date) acute ischemic unknown) changes. (unknown) (no (unknown) (unknown) at extension and (units (unknown) date) states that she unknown) feels symptoms of alcohol withdrawal. Denies (unknown) (no (unknown) (unknown) being depressed at (units (unknown) date) this time, CIWA is unknown) an 8. (unknown) (no (unknown) (unknown) bpm with rightward (units (unknown) date) axis and normal unknown) intervals. No STEMI, ST segment changes, (unknown) (no (unknown) (unknown) current (units (unkno wn) date) occupational unknown) exposures/hazards: Yes (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 with Pandemic ) (unknown) (no (unknown) (unknown) cystitis without (units (unknown) date) hematuria unknown) (unknown) (no (unknown) (unknown) cystitis (units (unkno wn) date) unknown) (unknown) (no (unknown) (unknown) cystitis, she is (units (unknown) date) p.o. tolerant, unknown) still pending lab work (unknown) (no (unknown) (unknown) deliver since it (units (unknown) date) is after 17:00 and unknown) the diet order was ordered at 17:30. Samira (unknown) (no (unknown) (unknown) detox as well. (units (unknown) date) unknown) (unknown) (no (unknown) (unknown) diarrhea or (units (un known) date) current stool unknown) changes. (unknown) (no (unknown) (unknown) diphenhydramine (units (unknown) [...] mg unknown) capsule (unknown) (no (unknown) (unknown) draw her labs (units ( unknown) date) unknown) (unknown) (no (unknown) (unknown) education level: (units (unknown) date) college unknown) (unknown) (no (unknown) (unknown) electrolyte (units (un known) date) abnormalities. unknown) (unknown) (no (unknown) (unknown) emergency (units (unkn own) date) department on unknown) 06/18/2022 and a few days prior to that with a blood (unknown) (no (unknown) (unknown) renee/zoroastrianism: (units (unknown) date) Buddhist unknown) (unknown) (no (unknown) (unknown) fluid, EtOH, and (units (unknown) date) CIWA, ordered 2 mg unknown) of IV lorazepam for patient's symptoms, (unknown) (no (unknown) (unknown) for alcohol (units (un known) date) related complaints unknown) through 2019, and she presented to the [facility] (unknown) (no (unknown) (unknown) from social work (units (unknown) date) is aware and unknown) pending her lab work to arrange for inpatient (unknown) (no (unknown) (unknown) go to detox. She (units (unknown) date) is currently unknown) intoxicated endorses symptoms of alcohol (unknown) (no (unknown) (unknown) her urine (units (unkn own) date) microscopy came unknown) back positive for many bacteria, will treat for acute (unknown) (no (unknown) (unknown) household members: (units (unknown) date) spouse and children unknown) (unknown) (no (unknown) (unknown) hydrocodone (units (un known) date) [HYDROCODONE] unknown) AdvReac Unknown VOMITING Verified 07/12/22 16:18 (unknown) (no (unknown) (unknown) hyroid studies are (units (unknown) date) still pending. No unknown) significant findings to her CMP. No (unknown) (no (unknown) (unknown) ibuprofen 600 mg (units (unknown) date) Tablet unknown) (unknown) (no (unknown) (unknown) ibuprofen 600 mg (units (unknown) date) tablet 600 mg PO unknown) Q6HR PRN Pain, Mild 07/04/20 (unknown) (no (unknown) (unknown) intoxicated, (units (un known) date) pleasant, unknown) interactive and comfortable although active and fidgeting (unknown) (no (unknown) (unknown) is 338, COVID PCR (units (unknown) date) was negative, drug unknown) screen is negative for all tested agents, t (unknown) (no (unknown) (unknown) is allergic to (units ( unknown) date) Reglan, will dose unknown) with another 5 mg of Zofran, no QT prolongation (unknown) (no (unknown) (unknown) limited history (units (unknown) date) currently due to unknown) intoxication. She states that she is recently (unknown) (no (unknown) (unknown) lorazepam at 2 mg (units (unknown) date) for this. unknown) (unknown) (no (unknown) (unknown) marital status: (units (unknown) date) unknown) (unknown) (no (unknown) (unknown) metoclopramide (units (unknown) date) Allergy Mild unknown) RASH/HIVES Verified 07/12/22 16:18 (unknown) (no (unknown) (unknown) mild anemia but (units (unknown) date) improved from her unknown) prior with H+H of 11.5 and 35.3, no evidence (unknown) (no (unknown) (unknown) months. She denies (units (unknown) date) any recent unknown) injuries, denies chance of , denies any (unknown) (no (unknown) (unknown) nausea vomiting or (units (unknown) date) abdominal pain at unknown) this time. 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 (units (u nknown) date) Ativan for her unknown) symptoms and ask our into call lab to come up and (unknown) (no (unknown) (unknown) other ingestions, (units (unknown) date) is pleasant, unknown) seeking help with her intoxication and wishes to (unknown) (no (unknown) (unknown) prenat.vits,otis,mi (units (unknown) date) d-lpgq-[id number] 1 tab unknown) PO DAILY 12/30/19 07/03/20 (unknown) (no (unknown) (unknown) prenat.vits,otis,mi (units (unknown) date) y-ooaw-mvgor Tablet unknown) (unknown) (no (unknown) (unknown) relapsed due to a (units (unknown) date) divorce with her unknown) . She used to be a frequent visitor (unknown) (no (unknown) (unknown) second hand (units (un known) date) exposure: No unknown) (growing up as a child - not currently) (unknown) (no (unknown) (unknown) significant tremor (units (unknown) date) or tongue unknown) fasciculation, she has a mild tremor with her arms (unknown) (no (unknown) (unknown) social work and (units (unknown) date) orders are pending unknown) (unknown) (no (unknown) (unknown) special renee (units ( unknown) date) needs: No unknown) (unknown) (no (unknown) (unknown) substance abuse, (units (unknown) date) alcohol unknown) intoxication, psychosis, mood disorder, depression (unknown) (no (unknown) (unknown) substance use (units ( unknown) date) type: does not use unknown) (unknown) (no (unknown) (unknown) tablet vomiting (units (unknown) date) #14 tabs unknown) (unknown) (no (unknown) (unknown) tablet vomiting (units (unknown) date) #20 tabs unknown) (unknown) (no (unknown) (unknown) tablet vomiting (units (unknown) date) #30 tabs unknown) (unknown) (no (unknown) (unknown) tenderness or (units ( unknown) date) exquisite unknown) tenderness with exam. (unknown) (no (unknown) (unknown) that she drinks (units (unknown) date) vodka and admits to unknown) drinking heavily today, states that she took (unknown) (no (unknown) (unknown) the bottle upside (units (unknown) date) down and started unknown) checking from it. She states that she drank (unknown) (no (unknown) (unknown) tramadol 50 mg (units (unknown) date) tablet 50 mg PO Q6H unknown) PRN pain #10 tabs 06/12/22 (unknown) (no (unknown) (unknown) tramadol 50 mg (units (unknown) date) tablet unknown) (unknown) (no (unknown) (unknown) tremors, no (units (un known) date) tachycardia, her unknown) CIWA is currently 10, ordered another p.o. dose of (unknown) (no (unknown) (unknown) urgency or flank (units (unknown) date) pain, endorses unknown) nausea without vomiting. (unknown) (no (unknown) (unknown) well as prior (units ( unknown) date) records if unknown) available. (unknown) (no (unknown) (unknown) wheezing, stridor, (units (unknown) date) or abnormal breath unknown) sounds. No retractions or tachypnea. (unknown) (no (unknown) (unknown) withdrawal. (units (un known) date) Patient states that unknown) she takes Seroquel 300 mg at night as well as Result panel [id number] (unknown) (no (unknown) (unknown) (no value) (units (unk nown) date) unknown) (unknown) (no (unknown) (unknown) (1-3) #30 tabs (units (unknown) date) unknown) (unknown) (no (unknown) (unknown) (Benadryl) caps (units (unknown) date) unknown) (unknown) (no (unknown) (unknown) (Colace) (units (unkno wn) date) unknown) (unknown) (no (unknown) (unknown) (Tylenol) (units (unkn own) date) unknown) (unknown) (no (unknown) (unknown) [id number] (units (unkn own) date) unknown) (unknown) (no (unknown) (unknown) 07/12/22 07/12/22 (units (unknown) date) 07/12/22 unknown) Range/Units (unknown) (no (unknown) (unknown) 07/12/22 16:28 (units (unknown) date) unknown) (unknown) (no (unknown) (unknown) 07/12/22 16:32 (units (unknown) date) unknown) (unknown) (no (unknown) (unknown) 07/12/22 18:28 (units (unknown) date) unknown) (unknown) (no (unknown) (unknown) 07/12/22 19:15 (units (unknown) date) unknown) (unknown) (no (unknown) (unknown) 07/12/22 (units (unkno wn) date) unknown) (unknown) (no (unknown) (unknown) 1 tab PO DAILY (units (unknown) date) unknown) (unknown) (no (unknown) (unknown) 100 mg PO BID Qty: (units (unknown) date) 30 0RF unknown) (unknown) (no (unknown) (unknown) 16:10 07/12/22 (units (unknown) date) unknown) (unknown) (no (unknown) (unknown) 16:32 16:32 16:32 (units (unknown) date) unknown) (unknown) (no (unknown) (unknown) 1836 patient still (units (unknown) date) does not have an unknown) IV, has not received any IV fluid her (unknown) (no (unknown) (unknown) 18:53 (units (unkno wn) date) unknown) (unknown) (no (unknown) (unknown) 1900 still no IV, (units (unknown) date) patient is p.o. unknown) challenging, she received her p.o. lorazepam, (unknown) (no (unknown) (unknown) 1930, patient now (units (unknown) date) feels depressed, unknown) she is lying in bed, feeling bad, has (unknown) (no (unknown) (unknown) 19:15 19:15 19:15 (units (unknown) date) unknown) (unknown) (no (unknown) (unknown) 1999 patient is (units (unknown) date) feeling better now, unknown) her lab work is starting to return and ETOH (unknown) (no (unknown) (unknown) 2002 patient (units (u nknown) date) requests to take unknown) her home dosing of Seroquel 300 mg, this is (unknown) (no (unknown) (unknown) 2022 with similar (units (unknown) date) symptoms. She comes unknown) in complaining of needing help, states (unknown) (no (unknown) (unknown) 25 mg PO [...] Qty: 30 0RF (unknown) (no (unknown) (unknown) 750 mL of time. (units (unknown) date) She just she has unknown) nothing to do but relapsed. This 3 weeks ago (unknown) (no (unknown) (unknown) 9 points (units (unkno wn) date) unknown) (unknown) (no (unknown) (unknown) ALT (<35) IU/L (units (unknown) date) unknown) (unknown) (no (unknown) (unknown) ALT 21 (<35) IU/L (units (unknown) date) unknown) (unknown) (no (unknown) (unknown) AST (14-36) IU/L (units (unknown) date) unknown) (unknown) (no (unknown) (unknown) AST 67 H (14-36) (units (unknown) date) IU/L unknown) (unknown) (no (unknown) (unknown) Acetaminophen < 10 (units (unknown) date) (10-30) ug/mL unknown) (unknown) (no (unknown) (unknown) Acetaminophen (units ( unknown) date) (10-30) ug/mL unknown) (unknown) (no (unknown) (unknown) Acetaminophen Stat (units (unknown) date) unknown) (unknown) (no (unknown) (unknown) Acute cystitis (units (unknown) date) unknown) (unknown) (no (unknown) (unknown) Age/Sex: 31 / F (units (unknown) date) unknown) (unknown) (no (unknown) (unknown) Agitation ?> 2 = (units (unknown) date) (More severe unknown) symptoms) (unknown) (no (unknown) (unknown) Albumin (3.5-5.0) (units (unknown) date) g/dL unknown) (unknown) (no (unknown) (unknown) Albumin 4.3 (units (un known) date) (3.5-5.0) g/dL unknown) (unknown) (no (unknown) (unknown) Albumin/Globulin (units (unknown) date) Ratio (1.0-2.8) unknown) (unknown) (no (unknown) (unknown) Albumin/Globulin (units (unknown) date) Ratio 1.4 (1.0-2.8) unknown) (unknown) (no (unknown) (unknown) Alcohol use (units (un known) date) disorder unknown) (unknown) (no (unknown) (unknown) Alcoholism (units (unk nown) date) unknown) (unknown) (no (unknown) (unknown) Alkaline (units (unkno wn) date) Phosphatase unknown) (38-126) U/L (unknown) (no (unknown) (unknown) Alkaline (units (unkno wn) date) Phosphatase 98 unknown) (38-126) U/L (unknown) (no (unknown) (unknown) Allergies (units (unkn own) date) unknown) (unknown) (no (unknown) (unknown) Allergy/AdvReac (units (unknown) date) Type Severity unknown) Reaction Status Date / Time (unknown) (no (unknown) (unknown) Anemia (-2018) (units (unknown) date) unknown) (unknown) (no (unknown) (unknown) Anxiety ?> 2 = (units (unknown) date) (More severe unknown) symptoms) (unknown) (no (unknown) (unknown) Auditory (units (unkno wn) date) disturbances ?> 1 = unknown) Very mild harshness or ability to frighten (unknown) (no (unknown) (unknown) BUN (7-17) mg/dL (units (unknown) date) unknown) (unknown) (no (unknown) (unknown) BUN 9 (7-17) mg/dL (units (unknown) date) unknown) (unknown) (no (unknown) (unknown) BUN/Creatinine (units (unknown) date) Ratio (6-22) unknown) (unknown) (no (unknown) (unknown) BUN/Creatinine (units (unknown) date) Ratio 11.0 (6-22) unknown) (unknown) (no (unknown) (unknown) Baso # (Auto) (units ( unknown) date) (0-100) /uL unknown) (unknown) (no (unknown) (unknown) Baso # (Auto) 0 (units (unknown) date) (0-100) /uL unknown) (unknown) (no (unknown) (unknown) Baso % (Auto) (units ( unknown) date) (0-2) % unknown) (unknown) (no (unknown) (unknown) Baso % (Auto) 0.9 (units (unknown) date) (0-2) % unknown) (unknown) (no (unknown) (unknown) Bedside Urine (units ( unknown) date) Bilirubin - unknown) Negative (unknown) (no (unknown) (unknown) Bedside Urine (units ( unknown) date) Glucose Negative unknown) (unknown) (no (unknown) (unknown) Bedside Urine (units ( unknown) date) Ketone - Negative unknown) (unknown) (no (unknown) (unknown) Bedside Urine (units ( unknown) date) Leukocytes - unknown) Negative (unknown) (no (unknown) (unknown) Bedside Urine (units ( unknown) date) Nitrite + Positive unknown) (unknown) (no (unknown) (unknown) Bedside Urine (units ( unknown) date) Occult Blood - unknown) Negative (unknown) (no (unknown) (unknown) Bedside Urine (units ( unknown) date) Protein - Negative unknown) (unknown) (no (unknown) (unknown) Bedside Urine (units ( unknown) date) Urobilinogen - unknown) Negative (unknown) (no (unknown) (unknown) Bedside Urine pH (units (unknown) date) 6.0 unknown) (unknown) (no (unknown) (unknown) Blood Pressure (units (unknown) date) 112/62 07/12/22 unknown) 16:10 (unknown) (no (unknown) (unknown) Blood Pressure (units (unknown) date) unknown) (unknown) (no (unknown) (unknown) Blood Pressure (units (unknown) date) [Left Arm] 100/59 L unknown) (unknown) (no (unknown) (unknown) CIWA is now worse (units (unknown) date) and she has unknown) tremors, anxiety is worsening and agitation, (unknown) (no (unknown) (unknown) CIWA-Ar for (units (un known) date) Alcohol Withdrawal unknown) from [facility] on 07/12/2022 (unknown) (no (unknown) (unknown) COVID19 -Nasal (units (unknown) date) RAPID/Pre-Proc Stat unknown) (unknown) (no (unknown) (unknown) Calcium (8.4-10.2) (units (unknown) date) mg/dL unknown) (unknown) (no (unknown) (unknown) Calcium 8.0 L (units ( unknown) date) (8.4-10.2) mg/dL unknown) (unknown) (no (unknown) (unknown) Carbon Dioxide (units (unknown) date) (22-32) mmol/L unknown) (unknown) (no (unknown) (unknown) Carbon Dioxide 23 (units (unknown) date) (22-32) mmol/L unknown) (unknown) (no (unknown) (unknown) Cardiovascular: (units (unknown) date) Tachycardic rate unknown) and rhythm, no peripheral edema, warm (unknown) (no (unknown) (unknown) Cephalexin HCl (units (unknown) date) (Cephalexin 250 Mg unknown) Capsule) 500 mg PO Q6H SANDY (unknown) (no (unknown) (unknown) Chief Complaint: (units (unknown) date) Alcohol unknown) intoxication, seeking detox (unknown) (no (unknown) (unknown) Chief Complaint: (units (unknown) date) Toxicology Problem unknown) (unknown) (no (unknown) (unknown) Chloride (98-107) (units (unknown) date) mmol/L unknown) (unknown) (no (unknown) (unknown) Chloride 104 (units (u nknown) date) (98-107) mmol/L unknown) (unknown) (no (unknown) (unknown) Clinical (units (unkno wn) date) Impression: unknown) (unknown) (no (unknown) (unknown) Clinical decision (units (unknown) date) rules or scores unknown) evaluated: CIWA of 9 at 1753 (unknown) (no (unknown) (unknown) Complete Blood (units (unknown) date) Count AUTO DIFF unknown) Stat (unknown) (no (unknown) (unknown) Comprehensive (units ( unknown) date) Metabolic Panel unknown) Stat (unknown) (no (unknown) (unknown) Consult to [facility] - (units (unknown) date) 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 unknown) Stat (unknown) (no (unknown) (unknown) Course of care: (units (unknown) date) Patient is a unknown) difficult IV stick, ordered IV with lab work, (unknown) (no (unknown) (unknown) Course (units (unkno wn) date) unknown) (unknown) (no (unknown) (unknown) Creatinine (units (unk nown) date) (0.52-1.04) mg/dL unknown) (unknown) (no (unknown) (unknown) Creatinine 0.82 (units (unknown) date) (0.52-1.04) mg/dL unknown) (unknown) (no (unknown) (unknown) : 1990 (units (unknown) date) Acct:[id number] unknown) (unknown) (no (unknown) (unknown) Date of Service: (units (unknown) date) 07/12/22 unknown) (unknown) (no (unknown) (unknown) Departure (units (unkn own) date) unknown) (unknown) (no (unknown) (unknown) Differential (units (u nknown) date) diagnoses include unknown) but are not limited to: Alcohol withdrawal, (unknown) (no (unknown) (unknown) Discharge Plan (units (unknown) date) unknown) (unknown) (no (unknown) (unknown) Discontinued (units (u nknown) date) Medications unknown) (unknown) (no (unknown) (unknown) Documented By: KB (units (unknown) date) unknown) (unknown) (no (unknown) (unknown) Documented By: OW (units (unknown) date) unknown) (unknown) (no (unknown) (unknown) ECG Data (units (unkno wn) date) unknown) (unknown) (no (unknown) (unknown) ED Orders (units (unkn own) date) unknown) (unknown) (no (unknown) (unknown) EKG independently (units (unknown) date) reviewed by myself unknown) at 1830 reveals normal sinus rhythm at 72 (unknown) (no (unknown) (unknown) EKG-12 Lead Stat (units (unknown) date) unknown) (unknown) (no (unknown) (unknown) ER Physician: (units ( unknown) date) Reinaldo Arthur D.O. unknown) (unknown) (no (unknown) (unknown) Emergency Report (units (unknown) date) unknown) (unknown) (no (unknown) (unknown) Eos # (Auto) (units (u nknown) date) (0-450) /uL unknown) (unknown) (no (unknown) (unknown) Eos # (Auto) 0 (units (unknown) date) (0-450) /uL unknown) (unknown) (no (unknown) (unknown) Eos % (Auto) (2-4) (units (unknown) date) % unknown) (unknown) (no (unknown) (unknown) Eos % (Auto) 0.3 L (units (unknown) date) (2-4) % unknown) (unknown) (no (unknown) (unknown) Esterase (units (unkno wn) date) unknown) (unknown) (no (unknown) (unknown) Estimated GFR > 60 (units (unknown) date) (>60) mL/min unknown) (unknown) (no (unknown) (unknown) Estimated GFR (units ( unknown) date) (>60) mL/min unknown) (unknown) (no (unknown) (unknown) Ethanol (ETOH) (units (unknown) date) Stat unknown) (unknown) (no (unknown) (unknown) Ethyl Alcohol ( - (units (unknown) date) 10) mg/dL unknown) (unknown) (no (unknown) (unknown) Ethyl Alcohol 338 (units (unknown) date) H ( - 10) mg/dL unknown) (unknown) (no (unknown) (unknown) Exam Narrative: (units (unknown) date) unknown) (unknown) (no (unknown) (unknown) Exam (units (unkno wn) date) unknown) (unknown) (no (unknown) (unknown) Family History (units (unknown) date) (Reviewed 07/12/22 unknown) @ 17:50 by LYUDMILA Do) (unknown) (no (unknown) (unknown) Family/Other (units (u nknown) date) Alcoholism unknown) (unknown) (no (unknown) (unknown) Family/Other (units (u nknown) date) Diabetes mellitus unknown) (unknown) (no (unknown) (unknown) Father Alcoholism (units (unknown) date) unknown) (unknown) (no (unknown) (unknown) Tonia Schneider MD (units (unknown) date) [Primary Care unknown) Provider] (unknown) (no (unknown) (unknown) Folic Acid (Folic (units (unknown) date) Acid 1 Mg Tablet) 1 unknown) mg PO DAILY SANDY (unknown) (no (unknown) (unknown) Free T4 (units (o wn) date) (0.78-2.19) ng/dL unknown) (unknown) (no (unknown) (unknown) Free T4 0.93 (units (u nknown) date) (0.78-2.19) ng/dL unknown) (unknown) (no (unknown) (unknown) Free T4, Direct (units (unknown) date) Thyroxine Stat unknown) (unknown) (no (unknown) (unknown) GI: abdomen soft, (units (unknown) date) nontender to unknown) palpation, nondistended, without masses, rebound (unknown) (no (unknown) (unknown) General (units (unkno wn) date) unknown) (unknown) (no (unknown) (unknown) General: (units (unkno wn) date) cooperative, unknown) comfortable, in no acute distress, well groomed, appears (unknown) (no (unknown) (unknown) Globulin (1.7-4.1) (units (unknown) date) g/dL unknown) (unknown) (no (unknown) (unknown) Globulin 3.0 (units (u nknown) date) (1.7-4.1) g/dL unknown) (unknown) (no (unknown) (unknown) Glucose (70-100) (units (unknown) date) mg/dL unknown) (unknown) (no (unknown) (unknown) Glucose 111 H (units ( unknown) date) (70-100) mg/dL [...] extraction () unknown) (unknown) (no (unknown) (unknown) HEENT: symmetrical (units (unknown) date) facial expressions, unknown) dry mucous membranes (unknown) (no (unknown) (unknown) HPI - Alcohol (units ( unknown) date) unknown) (unknown) (no (unknown) (unknown) HPI narrative: (units (unknown) date) unknown) (unknown) (no (unknown) (unknown) Hct (36-46) % (units ( unknown) date) unknown) (unknown) (no (unknown) (unknown) Hct 35.3 L (36-46) (units (unknown) date) % unknown) (unknown) (no (unknown) (unknown) Headache/fullness (units (unknown) date) in head ?> 1 = Very unknown) mild (unknown) (no (unknown) (unknown) Hematuria (units (unkn own) date) presence: without unknown) hematuria Qualified Code(s): N30.00 - Acute (unknown) (no (unknown) (unknown) Hgb (12.0-16.0) (units (unknown) date) g/dL unknown) (unknown) (no (unknown) (unknown) Hgb 11.5 L (units (unk nown) date) (12.0-16.0) g/dL unknown) (unknown) (no (unknown) (unknown) History of Present (units (unknown) date) Illness unknown) (unknown) (no (unknown) (unknown) Home Medications (units (unknown) date) unknown) (unknown) (no (unknown) (unknown) I have (units (unkno wn) date) independently unknown) reviewed the patient's vital signs and nursing notes as (unknown) (no (unknown) (unknown) INPUTS: (units (unkno wn) date) unknown) (unknown) (no (unknown) (unknown) Independent (units (un known) date) historian: Patient unknown) (unknown) (no (unknown) (unknown) Initial Vital (units ( unknown) date) Signs unknown) (unknown) (no (unknown) (unknown) Initial Vital (units ( unknown) date) Signs: unknown) (unknown) (no (unknown) (unknown) Insomnia (units (unkno wn) date) unknown) (unknown) (no (unknown) (unknown) Interpretation: (units (unknown) date) unknown) (unknown) (no (unknown) (unknown) [facility] (units (unknown) date) [address] unknown) [place] [address] (unknown) (no (unknown) (unknown) Lab Data (units (unkno wn) date) unknown) (unknown) (no (unknown) (unknown) Lab Results (units (un known) date) unknown) (unknown) (no (unknown) (unknown) Labs: (units (unkno wn) date) unknown) (unknown) (no (unknown) (unknown) Last Admin: (units (un known) date) 07/12/22 18:39 unknown) Dose: 4 mg (unknown) (no (unknown) (unknown) Last Admin: (units (un known) date) 07/12/22 18:40 unknown) Dose: 1 mg (unknown) (no (unknown) (unknown) Last Admin: (units (un known) date) 07/12/22 18:56 unknown) Dose: Not Given (unknown) (no (unknown) (unknown) Last Admin: (units (un known) date) 07/12/22 19:47 unknown) Dose: 500 mg (unknown) (no (unknown) (unknown) Last Admin: (units (un known) date) 07/12/22 19:48 unknown) Dose: 2 mg (unknown) (no (unknown) (unknown) Last Admin: (units (un known) date) 07/12/22 19:49 unknown) Dose: 100 mg (unknown) (no (unknown) (unknown) Librium but she (units (unknown) date) does not have this unknown) medicine with her, she only has the Seroquel. (unknown) (no (unknown) (unknown) Lorazepam (units (unkn own) date) (Lorazepam 0.5 Mg unknown) Tablet) 1 mg PO NOW ONE (unknown) (no (unknown) (unknown) Lorazepam (units (unkn own) date) (Lorazepam 0.5 Mg unknown) Tablet) 2 mg PO NOW ONE (unknown) (no (unknown) (unknown) Lorazepam (units (unkn own) date) (Lorazepam 2 Mg/Ml unknown) Inj) 2 mg IV NOW ONE (unknown) (no (unknown) (unknown) Lymph # (Auto) (units (unknown) date) ([id number]) /uL unknown) (unknown) (no (unknown) (unknown) Lymph # (Auto) (units (unknown) date) 1700 ([id number]) unknown) /uL (unknown) (no (unknown) (unknown) Lymph % (Auto) (units (unknown) date) (25-40) % unknown) (unknown) (no (unknown) (unknown) Lymph % (Auto) (units (unknown) date) 50.6 H (25-40) % unknown) (unknown) (no (unknown) (unknown) MCH (26-34) PG (units (unknown) date) unknown) (unknown) (no (unknown) (unknown) MCH 26.0 (26-34) (units (unknown) date) PG unknown) (unknown) (no (unknown) (unknown) MCHC (30-36) % (units (unknown) date) unknown) (unknown) (no (unknown) (unknown) MCHC 32.7 (30-36) (units (unknown) date) % unknown) (unknown) (no (unknown) (unknown) MCV (80-100) fL (units (unknown) date) unknown) (unknown) (no (unknown) (unknown) MCV 79.5 L (units (unk nown) date) (80-100) fL unknown) (unknown) (no (unknown) (unknown) MDM - Alcohol (units ( unknown) date) unknown) (unknown) (no (unknown) (unknown) MDM Narrative (units ( unknown) date) unknown) (unknown) (no (unknown) (unknown) MIPS: This (units (unk nown) date) encounter doesn't unknown) have any diagnosis' associated with MIPS criteria. (unknown) (no (unknown) (unknown) MSK: moves all (units (unknown) date) extremities, unknown) neurovascularly intact, no weakness, normal tone no (unknown) (no (unknown) (unknown) Medical History (units (unknown) date) (Reviewed 07/12/22 unknown) @ 17:50 by Juliet Paz [facility]) (unknown) (no (unknown) (unknown) Medical decision (units (unknown) date) making narrative: unknown) (unknown) (no (unknown) (unknown) Medication (units (unk n) date) Instructions unknown) Recorded Confirmed (unknown) (no (unknown) (unknown) Medication (units (unk nown) date) Instructions unknown) Recorded (unknown) (no (unknown) (unknown) Menometrorrhagia (units (unknown) date) unknown) (unknown) (no (unknown) (unknown) Mode of arrival: (units (unknown) date) Ambulatory unknown) (unknown) (no (unknown) (unknown) Yates # (Auto) (units ( unknown) date) (0-900) /uL unknown) (unknown) (no (unknown) (unknown) Yates # (Auto) 100 (units (unknown) date) (0-900) /uL unknown) (unknown) (no (unknown) (unknown) Yates % (Auto) (units ( unknown) date) (3-14) % unknown) (unknown) (no (unknown) (unknown) Yates % (Auto) 2.7 (units (unknown) date) L (3-14) % unknown) (unknown) (no (unknown) (unknown) Mother Diabetes (units (unknown) date) mellitus unknown) (unknown) (no (unknown) (unknown) Narrative (units (unkn own) date) unknown) (unknown) (no (unknown) (unknown) Nausea/vomiting ?> (units (unknown) date) 0 = No nausea and unknown) no vomiting (unknown) (no (unknown) (unknown) Neuro: normal (units ( unknown) date) speech and unknown) cognition, A+O x3, ambulatory, clear speech (unknown) (no (unknown) (unknown) Neut # (Auto) (units ( unknown) date) (4716-3762) /uL unknown) (unknown) (no (unknown) (unknown) Neut # (Auto) 1500 (units (unknown) date) (4960-2648) /uL unknown) (unknown) (no (unknown) (unknown) Neut % (Auto) (units ( unknown) date) (50-75) % unknown) (unknown) (no (unknown) (unknown) Neut % (Auto) 45.5 (units (unknown) date) L (50-75) % unknown) (unknown) (no (unknown) (unknown) No Action (units (unkn own) date) unknown) (unknown) (no (unknown) (unknown) Obesity (units (unkno wn) date) unknown) (unknown) (no (unknown) (unknown) Ondansetron HCl (units (unknown) date) (Ondansetron 4 Mg unknown) Odt) 4 mg SL NOW ONE (unknown) (no (unknown) (unknown) Ondansetron HCl (units (unknown) date) (Ondansetron 4 Mg/2 unknown) Ml Inj) 4 mg IV Q6HR PRN (unknown) (no (unknown) (unknown) Ordered: (units (unkno wn) date) unknown) (unknown) (no (unknown) (unknown) Orders (units (unkno wn) date) unknown) (unknown) (no (unknown) (unknown) Orientation/cloudi (units (unknown) date) ng of sensorium ?> unknown) 0 = Oriented, can do serial additions (unknown) (no (unknown) (unknown) Overweight (units (unk nown) date) unknown) (unknown) (no (unknown) (unknown) Oxygen Delivery (units (unknown) date) Method Room Air unknown) 07/12/22 16:10 (unknown) (no (unknown) (unknown) Oxygen Delivery (units (unknown) date) Method Room Air unknown) Room Air (unknown) (no (unknown) (unknown) PRN Reason: Nausea (units (unknown) date) And Vomiting unknown) (unknown) (no (unknown) (unknown) Paroxysmal sweats (units (unknown) date) ?> 0 = No sweat unknown) visible (unknown) (no (unknown) (unknown) Patient (units (unkno wn) date) Disposition: [facility]fer [facility]) (unknown) Patient History (units (unknown) date) unknown) (unknown) (no (unknown) (unknown) Patient has (units (un known) date) allergy to Reglan unknown) and hydrocodone. She denies urinary frequency, (unknown) (no (unknown) (unknown) Patient's CIWA at (units (unknown) date) 2019 is 12, I unknown) ordered for her 2 more mg of lorazepam p.o., (unknown) (no (unknown) (unknown) Patient: (units (unkno wn) date) Sarah Connors R unknown) MR#: M (unknown) (no (unknown) (unknown) Patients with (units ( unknown) date) scores >= may unknown) require medication for withdrawal. (unknown) (no (unknown) (unknown) Pertinent lab (units ( unknown) date) findings reviewed: unknown) CBC is pertinent for mild leukopenia of 3.3, (unknown) (no (unknown) (unknown) Plt Count (units (unkn own) date) (150-400) X103/uL unknown) (unknown) (no (unknown) (unknown) Plt Count 226 (units ( unknown) date) (150-400) X103/uL unknown) (unknown) (no (unknown) (unknown) Point of Care (units ( unknown) date) Testing unknown) (unknown) (no (unknown) (unknown) Potassium (units (unkn own) date) (3.4-5.1) mmol/L unknown) (unknown) (no (unknown) (unknown) Potassium 3.9 (units ( unknown) date) (3.4-5.1) mmol/L unknown) (unknown) (no (unknown) (unknown) Test (units (unknown) date) Results Negative unknown) (unknown) (no (unknown) (unknown) Prescriptions: (units (unknown) date) unknown) (unknown) (no (unknown) (unknown) Previous Rx's (units ( unknown) date) unknown) (unknown) (no (unknown) (unknown) Psych: mental (units ( unknown) date) status is intact, unknown) patient has a normal affect although she is (unknown) (no (unknown) (unknown) Pulse Oximetry 99 (units (unknown) date) 07/12/22 16:10 unknown) (unknown) (no (unknown) (unknown) Pulse Oximetry 99 (units (unknown) date) 99 unknown) (unknown) (no (unknown) (unknown) Pulse Rate 82 (units ( unknown) date) 07/12/22 16:10 unknown) (unknown) (no (unknown) (unknown) Pulse Rate 82 86 (units (unknown) date) unknown) (unknown) (no (unknown) (unknown) Qualifiers: (units (un known) date) unknown) (unknown) (no (unknown) (unknown) Questions are (units ( unknown) date) addressed and there unknown) is agreement with the plan and for follow-up. (unknown) (no (unknown) (unknown) RBC (4.0-5.2) (units ( unknown) date) X106/uL unknown) (unknown) (no (unknown) (unknown) RBC 4.44 (4.0-5.2) (units (unknown) date) X106/uL unknown) (unknown) (no (unknown) (unknown) RDW (11.6-14.8) % (units (unknown) date) unknown) (unknown) (no (unknown) (unknown) RDW 17.3 H (units (unk nown) date) (11.6-14.8) % unknown) (unknown) (no (unknown) (unknown) RESULT SUMMARY: (units (unknown) date) unknown) (unknown) (no (unknown) (unknown) ROS Unobtainable: (units (unknown) date) All systems unknown) reviewed + are unremarkable except as noted in HPI (unknown) (no (unknown) (unknown) Referrals: (units (unk nown) date) unknown) (unknown) (no (unknown) (unknown) Related Data (units (u nknown) date) unknown) (unknown) (no (unknown) (unknown) Respiratory Rate (units (unknown) date) 14 07/12/22 16:10 unknown) (unknown) (no (unknown) (unknown) Respiratory Rate (units (unknown) date) 14 22 unknown) (unknown) (no (unknown) (unknown) Respiratory: (units (u nknown) date) normal effort, able unknown) to speak in complete sentences, without (unknown) (no (unknown) (unknown) Review of Systems (units (unknown) date) unknown) (unknown) (no (unknown) (unknown) Reviewed vitals (units (unknown) date) signs and nursing unknown) notes. (unknown) (no (unknown) (unknown) S/P myringotomy (units (unknown) date) with insertion of unknown) tube (unknown) (no (unknown) (unknown) SARS-CoV-2 (PCR) (units (unknown) date) (Negative) unknown) (unknown) (no (unknown) (unknown) SARS-CoV-2 (PCR) (units (unknown) date) Negative (Negative) unknown) (unknown) (no (unknown) (unknown) (spontaneous (units (unknown) date) vaginal delivery) unknown) (-09/05/18) (unknown) (no (unknown) (unknown) Salicylate Stat (units (unknown) date) unknown) (unknown) (no (unknown) (unknown) Salicylates < 1.0 (units (unknown) date) (<20) mg/dL unknown) (unknown) (no (unknown) (unknown) Salicylates (<20) (units (unknown) date) mg/dL unknown) (unknown) (no (unknown) (unknown) She was given a (units (unknown) date) couple water, a unknown) diet order was ordered however they may not (unknown) (no (unknown) (unknown) Signed By: (units (unk nown) date) unknown) (unknown) (no (unknown) (unknown) Skin: brisk (units (un known) date) capillary refill, unknown) without pallor or erythema (unknown) (no (unknown) (unknown) Smoker (units (unkno wn) date) unknown) (unknown) (no (unknown) (unknown) [place] and (units (unknown) date) [place] in the unknown) past. She has been sober for a total of 18 (unknown) (no (unknown) (unknown) Smoking Status: (units (unknown) date) Former smoker unknown) (unknown) (no (unknown) (unknown) Social History (units (unknown) date) (Reviewed 07/12/22 unknown) @ 17:50 by Juliet Paz [facility]) (unknown) (no (unknown) (unknown) Social (units (unkno wn) date) considerations that unknown) may affect disposition: none (unknown) (no (unknown) (unknown) Sodium (137-145) (units (unknown) date) mmol/L unknown) (unknown) (no (unknown) (unknown) Sodium 140 (units (unk nown) date) (137-145) mmol/L unknown) (unknown) (no (unknown) (unknown) Sodium Chloride (units (unknown) date) (Normal Saline unknown) 0.9%) 1,000 mls @ 1,000 mls/hr IV BOLUS ONE (unknown) (no (unknown) (unknown) Source: patient (units (unknown) date) unknown) (unknown) (no (unknown) (unknown) Stated Complaint: (units (unknown) date) Stress/Depression unknown) (unknown) (no (unknown) (unknown) Stop: 07/12/22 (units (unknown) date) 17:33 unknown) (unknown) (no (unknown) (unknown) Stop: 07/12/22 (units (unknown) date) 17:45 unknown) (unknown) (no (unknown) (unknown) Stop: 07/12/22 (units (unknown) date) 18:28 unknown) (unknown) (no (unknown) (unknown) Stop: 07/12/22 (units (unknown) date) 18:31 unknown) (unknown) (no (unknown) (unknown) Stop: 07/12/22 (units (unknown) date) 19:25 unknown) (unknown) (no (unknown) (unknown) Stop: 07/12/22 (units (unknown) date) 20:03 unknown) (unknown) (no (unknown) (unknown) Substance Use (units ( unknown) date) Type: does not use unknown) (unknown) (no (unknown) (unknown) Surgical History (units (unknown) date) (Reviewed 07/12/22 unknown) @ 17:50 by Juliet Paz [facility]) (unknown) (no (unknown) (unknown) Tactile (units (unkno wn) date) disturbances ?> 1 = unknown) Very mild itching, pin and needles, burning, or (unknown) (no (unknown) (unknown) Temperature 97.2 F (units (unknown) date) L 07/12/22 16:10 unknown) (unknown) (no (unknown) (unknown) Temperature 97.2 F (units (unknown) date) L unknown) (unknown) (no (unknown) (unknown) Thiamine HCl (units (u nknown) date) (Thiamine 100 Mg unknown) Tablet) 100 mg PO NOW ONE (unknown) (no (unknown) (unknown) Thiamine HCl 200 (units (unknown) date) mg/ Sodium unknown) (Chloride) 102 mls @ 408 mls/hr IV NOW ONE (unknown) (no (unknown) (unknown) This is a (units (unkn own) date) 31-year-old female unknown) with history of alcohol abuse and appears to have (unknown) (no (unknown) (unknown) Thyroid (units (unkno wn) date) Stimulating Hormone unknown) Stat (unknown) (no (unknown) (unknown) Time Seen by (units (u nknown) date) Provider: 07/12/22 unknown) 17:05 (unknown) (no (unknown) (unknown) Total Bilirubin (units (unknown) date) (0.2-1.3) mg/dL unknown) (unknown) (no (unknown) (unknown) Total Bilirubin (units (unknown) date) 0.4 (0.2-1.3) mg/dL unknown) (unknown) (no (unknown) (unknown) Total Protein (units ( unknown) date) (6.3-8.2) g/dL unknown) (unknown) (no (unknown) (unknown) Total Protein 7.3 (units (unknown) date) (6.3-8.2) g/dL unknown) (unknown) (no (unknown) (unknown) Tremor ?> 1 = Not (units (unknown) date) visible, but can be unknown) felt fingertip to fingertip (unknown) (no (unknown) (unknown) U Benzodiazepines (units (unknown) date) Scrn (Negative) unknown) (unknown) (no (unknown) (unknown) U Benzodiazepines (units (unknown) date) Scrn Negative unknown) (Negative) (unknown) (no (unknown) (unknown) U Marijuana (THC) (units (unknown) date) Screen (Negative) unknown) (unknown) (no (unknown) (unknown) U Marijuana (THC) (units (unknown) date) Screen Negative unknown) (Negative) (unknown) (no (unknown) (unknown) U Methamphetamines (units (unknown) date) Scrn (Negative) unknown) (unknown) (no (unknown) (unknown) U Methamphetamines (units (unknown) date) Scrn Negative unknown) (Negative) (unknown) (no (unknown) (unknown) U Opiates 300ng/mL (units (unknown) date) cut (Negative) unknown) (unknown) (no (unknown) (unknown) U Opiates 300ng/mL (units (unknown) date) cut Negative unknown) (Negative) (unknown) (no (unknown) (unknown) U Tricyclic (units (un known) date) Antidepress unknown) (Negative) (unknown) (no (unknown) (unknown) U Tricyclic (units (un known) date) Antidepress unknown) Negative (Negative) (unknown) (no (unknown) (unknown) Ur Amphetamines (units (unknown) date) Screen (Negative) unknown) (unknown) (no (unknown) (unknown) Ur Amphetamines (units (unknown) date) Screen Negative unknown) (Negative) (unknown) (no (unknown) (unknown) Ur Barbiturates (units (unknown) date) Screen (Negative) unknown) (unknown) (no (unknown) (unknown) Ur Barbiturates (units (unknown) date) Screen Negative unknown) (Negative) (unknown) (no (unknown) (unknown) Ur Culture (units (unk nown) date) Indicated? Specimen unknown) cultured (unknown) (no (unknown) (unknown) Ur Culture (units (unk nown) date) Indicated? unknown) (unknown) (no (unknown) (unknown) Ur MDMA Scrn (units (u nknown) date) (Ecstasy) unknown) (Negative) (unknown) (no (unknown) (unknown) Ur MDMA Scrn (units (u nknown) date) (Ecstasy) Negative unknown) (Negative) (unknown) (no (unknown) (unknown) Ur Oxycodone (units (u nknown) date) Screen (Negative) unknown) (unknown) (no (unknown) (unknown) Ur Oxycodone (units (u nknown) date) Screen Negative unknown) (Negative) (unknown) (no (unknown) (unknown) Ur Phencyclidine (units (unknown) date) Scrn (Negative) unknown) (unknown) (no (unknown) (unknown) Ur Phencyclidine (units (unknown) date) Scrn Negative unknown) (Negative) (unknown) (no (unknown) (unknown) Ur Squamous Epith (units (unknown) date) Cells (0-5/HPF) unknown) (unknown) (no (unknown) (unknown) Ur Squamous Epith (units (unknown) date) Cells 1-5 /hpf unknown) (0-5/HPF) (unknown) (no (unknown) (unknown) Urine Bacteria (units (unknown) date) (None) unknown) (unknown) (no (unknown) (unknown) Urine Bacteria (units (unknown) date) Many (>30) H (None) unknown) (unknown) (no (unknown) (unknown) Urine Cocaine (units ( unknown) date) Screen (Negative) unknown) (unknown) (no (unknown) (unknown) Urine Cocaine (units ( unknown) date) Screen Negative unknown) (Negative) (unknown) (no (unknown) (unknown) Urine Culture Stat (units (unknown) date) unknown) (unknown) (no (unknown) (unknown) Urine Dip (units (unkn own) date) unknown) (unknown) (no (unknown) (unknown) Urine Drug Screen, (units (unknown) date) Rapid Stat unknown) (unknown) (no (unknown) (unknown) Urine Methadone (units (unknown) date) Screen (Negative) unknown) (unknown) (no (unknown) (unknown) Urine Methadone (units (unknown) date) Screen Negative unknown) (Negative) (unknown) (no (unknown) (unknown) Urine Microscopic (units (unknown) date) Stat unknown) (unknown) (no (unknown) (unknown) Urine RBC (units (unkn own) date) (0-5/HPF) unknown) (unknown) (no (unknown) (unknown) Urine RBC 1-5/hpf (units (unknown) date) (0-5/HPF) unknown) (unknown) (no (unknown) (unknown) Urine Specific (units (unknown) date) [place] 1.015 unknown) (unknown) (no (unknown) (unknown) Urine WBC (units (unkn own) date) (0-5/HPF) unknown) (unknown) (no (unknown) (unknown) Urine WBC 1-5/hpf (units (unknown) date) (0-5/HPF) unknown) (unknown) (no (unknown) (unknown) Urine microscopy (units (unknown) date) with many bacteria, unknown) pending for culture, will treat for acute (unknown) (no (unknown) (unknown) Visual (units (unkno wn) date) disturbances ?> 1 = unknown) Very mild sensitivity (unknown) (no (unknown) (unknown) Vital Signs - 8 hr (units (unknown) date) unknown) (unknown) (no (unknown) (unknown) Vital Signs (units (un known) date) unknown) (unknown) (no (unknown) (unknown) Vital signs: (units (u nknown) date) unknown) (unknown) (no (unknown) (unknown) WBC (4.5-11.0) (units (unknown) date) X103/uL unknown) (unknown) (no (unknown) (unknown) WBC 3.3 L (units (unkn own) date) (4.5-11.0) X103/uL unknown) (unknown) (no (unknown) (unknown) [Embedded Image (units (unknown) date) Not Available] unknown) (unknown) (no (unknown) (unknown) [METOCLOPRAMIDE] (units (unknown) date) unknown) (unknown) (no (unknown) (unknown) acceptable. She is (units (unknown) date) nauseated, without unknown) vomiting, received Zofran previously and (unknown) (no (unknown) (unknown) acetaminophen 325 (units (unknown) date) mg tablet 325 mg PO unknown) Q6H PRN pain #20 tabs 02/05/20 (unknown) (no (unknown) (unknown) acetaminophen (units ( unknown) date) [Tylenol] 325 mg unknown) tablet (unknown) (no (unknown) (unknown) alcohol in 300s, (units (unknown) date) she was last here unknown) in the emergency department in May of (unknown) (no (unknown) (unknown) alcohol intake (units (unknown) date) frequency: 3 or unknown) more drinks per day (unknown) (no (unknown) (unknown) alcohol intake: (units (unknown) date) former unknown) (unknown) (no (unknown) (unknown) and below (units (unkn own) date) unknown) (unknown) (no (unknown) (unknown) and she drinking (units (unknown) date) daily since this unknown) happened. She wants rehab. She has been (unknown) (no (unknown) (unknown) anxious, (units (unkno wn) date) intoxicated and now unknown) withdrawing. pleasant and cooperative (unknown) (no (unknown) (unknown) arrhythmia, or (units (unknown) date) acute ischemic unknown) changes. (unknown) (no (unknown) (unknown) at extension and (units (unknown) date) states that she unknown) feels symptoms of alcohol withdrawal. Denies (unknown) (no (unknown) (unknown) being depressed at (units (unknown) date) this time, CIWA is unknown) an 8. (unknown) (no (unknown) (unknown) bpm with rightward (units (unknown) date) axis and normal unknown) intervals. No STEMI, ST segment changes, (unknown) (no (unknown) (unknown) current (units (unkno wn) date) occupational unknown) exposures/hazards: Yes (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 with Pandemic ) (unknown) (no (unknown) (unknown) cystitis without (units (unknown) date) hematuria unknown) (unknown) (no (unknown) (unknown) cystitis (units (unkno wn) date) unknown) (unknown) (no (unknown) (unknown) cystitis, she is (units (unknown) date) p.o. tolerant, unknown) still pending lab work (unknown) (no (unknown) (unknown) deliver since it (units (unknown) date) is after 17:00 and unknown) the diet order was ordered at 17:30. Samira (unknown) (no (unknown) (unknown) detox 11 times, (units (unknown) date) states that it has unknown) taking Antabuse, Librium, Ativan, she denies (unknown) (no (unknown) (unknown) detox as well. (units (unknown) date) unknown) (unknown) (no (unknown) (unknown) diarrhea or (units (un known) date) current stool unknown) changes. (unknown) (no (unknown) (unknown) diphenhydramine (units (unknown) [...] mg unknown) capsule (unknown) (no (unknown) (unknown) draw her labs (units ( unknown) date) unknown) (unknown) (no (unknown) (unknown) education level: (units (unknown) date) college unknown) (unknown) (no (unknown) (unknown) electrolyte (units (un known) date) abnormalities. unknown) (unknown) (no (unknown) (unknown) emergency (units (unkn own) date) department on unknown) 06/18/2022 and a few days prior to that with a blood (unknown) (no (unknown) (unknown) extremities (units (un known) date) unknown) (unknown) (no (unknown) (unknown) renee/zoroastrianism: (units (unknown) date) Buddhist unknown) (unknown) (no (unknown) (unknown) fidgeting (units (unkn own) date) unknown) (unknown) (no (unknown) (unknown) fluid, EtOH, and (units (unknown) date) CIWA, ordered 2 mg unknown) of IV lorazepam for patient's symptoms, (unknown) (no (unknown) (unknown) for alcohol (units (un known) date) related complaints unknown) through 2019, and she presented to the [facility] (unknown) (no (unknown) (unknown) from social work (units (unknown) date) is aware and unknown) pending her lab work to arrange for inpatient (unknown) (no (unknown) (unknown) go to detox. She (units (unknown) date) is currently unknown) intoxicated endorses symptoms of alcohol (unknown) (no (unknown) (unknown) her urine (units (unkn own) date) microscopy came unknown) back positive for many bacteria, will treat for acute (unknown) (no (unknown) (unknown) household members: (units (unknown) date) spouse and children unknown) (unknown) (no (unknown) (unknown) hydrocodone (units (un known) date) [HYDROCODONE] unknown) AdvReac Unknown VOMITING Verified 07/12/22 16:18 (unknown) (no (unknown) (unknown) ibuprofen 600 mg (units (unknown) date) Tablet unknown) (unknown) (no (unknown) (unknown) ibuprofen 600 mg (units (unknown) date) tablet 600 mg PO unknown) Q6HR PRN Pain, Mild 07/04/20 (unknown) (no (unknown) (unknown) intoxicated, (units (u nknown) date) pleasant, unknown) interactive and comfortable although active, anxious and (unknown) (no (unknown) (unknown) is 338, COVID PCR (units (unknown) date) was negative, drug unknown) screen is negative for all tested agents, (unknown) (no (unknown) (unknown) is allergic to (units ( unknown) date) Reglan, will dose unknown) with another 5 mg of Zofran, no QT prolongation (unknown) (no (unknown) (unknown) knowing if she is (units (unknown) date) had phenobarbital unknown) in the past. (unknown) (no (unknown) (unknown) limited history (units (unknown) date) currently due to unknown) intoxication. She states that she is recently (unknown) (no (unknown) (unknown) lorazepam at 2 mg (units (unknown) date) for this. unknown) (unknown) (no (unknown) (unknown) marital status: (units (unknown) date) unknown) (unknown) (no (unknown) (unknown) metoclopramide (units (unknown) date) Allergy Mild unknown) RASH/HIVES Verified 07/12/22 16:18 (unknown) (no (unknown) (unknown) mild anemia but (units (unknown) date) improved from her unknown) prior with H+H of 11.5 and 35.3, no evidence (unknown) (no (unknown) (unknown) months. She denies (units (unknown) date) any recent unknown) injuries, denies chance of , denies any (unknown) (no (unknown) (unknown) nausea vomiting or (units (unknown) date) abdominal pain at unknown) this time. 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 (units (u nknown) date) Ativan for her unknown) symptoms and ask our into call lab to come up and (unknown) (no (unknown) (unknown) other ingestions, (units (unknown) date) is pleasant, unknown) seeking help with her intoxication and wishes to (unknown) (no (unknown) (unknown) patient's (units (unknown) date) is at the bedside unknown) offering support, (unknown) (no (unknown) (unknown) prenat.vits,otis,mi (units (unknown) date) [id number] 1 tab unknown) PO DAILY 12/30/19 07/03/20 (unknown) (no (unknown) (unknown) prenat.vits,otis,mi (units (unknown) date) [id number] Tablet unknown) (unknown) (no (unknown) (unknown) relapsed due to a (units (unknown) date) divorce with her unknown) . She used to be a frequent visitor (unknown) (no (unknown) (unknown) second hand (units (un known) date) exposure: No unknown) (growing up as a child - not currently) (unknown) (no (unknown) (unknown) significant tremor (units (unknown) date) or tongue unknown) fasciculation, she has a mild tremor with her arms (unknown) (no (unknown) (unknown) social work and (units (unknown) date) orders are pending unknown) (unknown) (no (unknown) (unknown) special renee (units ( unknown) date) needs: No unknown) (unknown) (no (unknown) (unknown) substance abuse, (units (unknown) date) alcohol unknown) intoxication, psychosis, mood disorder, depression (unknown) (no (unknown) (unknown) substance use (units ( unknown) date) type: does not use unknown) (unknown) (no (unknown) (unknown) tablet vomiting (units (unknown) date) #14 tabs unknown) (unknown) (no (unknown) (unknown) tablet vomiting (units (unknown) date) #20 tabs unknown) (unknown) (no (unknown) (unknown) tablet vomiting (units (unknown) date) #30 tabs unknown) (unknown) (no (unknown) (unknown) tenderness or (units ( unknown) date) exquisite unknown) tenderness with exam. (unknown) (no (unknown) (unknown) that she drinks (units (unknown) date) vodka and admits to unknown) drinking heavily today, states that she took (unknown) (no (unknown) (unknown) the bottle upside (units (unknown) date) down and started unknown) checking from it. She states that she drank (unknown) (no (unknown) (unknown) thyroid studies (units (unknown) date) are still pending. unknown) No significant findings to her CMP. No (unknown) (no (unknown) (unknown) tramadol 50 mg (units (unknown) date) tablet 50 mg PO Q6H unknown) PRN pain #10 tabs 06/12/22 (unknown) (no (unknown) (unknown) tramadol 50 mg (units (unknown) date) tablet unknown) (unknown) (no (unknown) (unknown) tremors, no (units (un known) date) tachycardia, her unknown) CIWA is currently 10, ordered another p.o. dose of (unknown) (no (unknown) (unknown) urgency or flank (units (unknown) date) pain, endorses unknown) nausea without vomiting. Patient has been to (unknown) (no (unknown) (unknown) well as prior (units ( unknown) date) records if unknown) available. (unknown) (no (unknown) (unknown) wheezing, stridor, (units (unknown) date) or abnormal breath unknown) sounds. No retractions or tachypnea. (unknown) (no (unknown) (unknown) withdrawal. (units (un known) date) Patient states that unknown) she takes Seroquel 300 mg at night as well as Result panel [id number] (unknown) (no (unknown) (unknown) (no value) (units (unk nown) date) unknown) (unknown) (no (unknown) (unknown) (1-3) #30 tabs (units (unknown) date) unknown) (unknown) (no (unknown) (unknown) (Benadryl) caps (units (unknown) date) unknown) (unknown) (no (unknown) (unknown) (Colace) (units (unkno wn) date) unknown) (unknown) (no (unknown) (unknown) (Tylenol) (units (unkn own) date) unknown) (unknown) (no (unknown) (unknown) [phone] (units (unkn own) date) unknown) (unknown) (no (unknown) (unknown) 07/12/22 07/12/22 (units (unknown) date) 07/12/22 unknown) Range/Units (unknown) (no (unknown) (unknown) 07/12/22 16:28 (units (unknown) date) unknown) (unknown) (no (unknown) (unknown) 07/12/22 16:32 (units (unknown) date) unknown) (unknown) (no (unknown) (unknown) 07/12/22 18:28 (units (unknown) date) unknown) (unknown) (no (unknown) (unknown) 07/12/22 19:15 (units (unknown) date) unknown) (unknown) (no (unknown) (unknown) 07/12/22 (units (unkno wn) date) unknown) (unknown) (no (unknown) (unknown) 1 tab PO DAILY (units (unknown) date) unknown) (unknown) (no (unknown) (unknown) 100 mg PO BID Qty: (units (unknown) date) 30 0RF unknown) (unknown) (no (unknown) (unknown) 16:10 07/12/22 (units (unknown) date) unknown) (unknown) (no (unknown) (unknown) 16:32 16:32 16:32 (units (unknown) date) unknown) (unknown) (no (unknown) (unknown) 6 patient still (units (unknown) date) does not have an unknown) IV, has not received any IV fluid her (unknown) (no (unknown) (unknown) 18:53 (units (unkno wn) date) unknown) (unknown) (no (unknown) (unknown) 1899 still no IV, (units (unknown) date) patient is p.o. unknown) challenging, she received her p.o. lorazepam, (unknown) (no (unknown) (unknown) 1930, patient now (units (unknown) date) feels depressed, unknown) she is lying in bed, feeling bad, has (unknown) (no (unknown) (unknown) 19:15 19:15 19:15 (units (unknown) date) unknown) (unknown) (no (unknown) (unknown) 1999 patient is (units (unknown) date) feeling better now, unknown) her lab work is starting to return and ETOH (unknown) (no (unknown) (unknown) 2002 patient (units (u nknown) date) requests to take unknown) her home dosing of Seroquel 300 mg, this is (unknown) (no (unknown) (unknown) 2022 with similar (units (unknown) date) symptoms. She comes unknown) in complaining of needing help, states (unknown) (no (unknown) (unknown) 25 mg PO BEDTIME (units (unknown) date) PRN (Reason: unknown) insomnia) Qty: 20 0RF (unknown) (no (unknown) (unknown) 325 mg PO Q6H PRN (units (unknown) date) (Reason: pain) Qty: unknown) 20 0RF (unknown) (no (unknown) (unknown) 4 Zofran was (units (u nknown) date) ordered. So has not unknown) been given, patient is signed out to (unknown) (no (unknown) (unknown) 4 mg PO [...] Qty: 30 0RF (unknown) (no (unknown) (unknown) 750 mL of time. (units (unknown) date) She just she has unknown) nothing to do but relapsed. This 3 weeks ago (unknown) (no (unknown) (unknown) 9 points (units (unkno wn) date) unknown) (unknown) (no (unknown) (unknown) ALT (<35) IU/L (units (unknown) date) unknown) (unknown) (no (unknown) (unknown) ALT 21 (<35) IU/L (units (unknown) date) unknown) (unknown) (no (unknown) (unknown) AST (14-36) IU/L (units (unknown) date) unknown) (unknown) (no (unknown) (unknown) AST 67 H (14-36) (units (unknown) date) IU/L unknown) (unknown) (no (unknown) (unknown) Acetaminophen < 10 (units (unknown) date) (10-30) ug/mL unknown) (unknown) (no (unknown) (unknown) Acetaminophen (units ( unknown) date) (10-30) ug/mL unknown) (unknown) (no (unknown) (unknown) Acetaminophen Stat (units (unknown) date) unknown) (unknown) (no (unknown) (unknown) Acute cystitis (units (unknown) date) unknown) (unknown) (no (unknown) (unknown) Age/Sex: 31 / F (units (unknown) date) unknown) (unknown) (no (unknown) (unknown) Agitation ?> 2 = (units (unknown) date) (More severe unknown) symptoms) (unknown) (no (unknown) (unknown) Albumin (3.5-5.0) (units (unknown) date) g/dL unknown) (unknown) (no (unknown) (unknown) Albumin 4.3 (units (un known) date) (3.5-5.0) g/dL unknown) (unknown) (no (unknown) (unknown) Albumin/Globulin (units (unknown) date) Ratio (1.0-2.8) unknown) (unknown) (no (unknown) (unknown) Albumin/Globulin (units (unknown) date) Ratio 1.4 (1.0-2.8) unknown) (unknown) (no (unknown) (unknown) Alcohol use (units (un known) date) disorder unknown) (unknown) (no (unknown) (unknown) Alcoholism (units (unk nown) date) unknown) (unknown) (no (unknown) (unknown) Alkaline (units (unkno wn) date) Phosphatase unknown) (38-126) U/L (unknown) (no (unknown) (unknown) Alkaline (units (unkno wn) date) Phosphatase 98 unknown) (38-126) U/L (unknown) (no (unknown) (unknown) Allergies (units (unkn own) date) unknown) (unknown) (no (unknown) (unknown) Allergy/AdvReac (units (unknown) date) Type Severity unknown) Reaction Status Date / Time (unknown) (no (unknown) (unknown) Anemia (-2018) (units (unknown) date) unknown) (unknown) (no (unknown) (unknown) Anxiety ?> 2 = (units (unknown) date) (More severe unknown) symptoms) (unknown) (no (unknown) (unknown) Auditory (units (unkno wn) date) disturbances ?> 1 = unknown) Very mild harshness or ability to frighten (unknown) (no (unknown) (unknown) BUN (7-17) mg/dL (units (unknown) date) unknown) (unknown) (no (unknown) (unknown) BUN 9 (7-17) mg/dL (units (unknown) date) unknown) (unknown) (no (unknown) (unknown) BUN/Creatinine (units (unknown) date) Ratio (6-22) unknown) (unknown) (no (unknown) (unknown) BUN/Creatinine (units (unknown) date) Ratio 11.0 (6-22) unknown) (unknown) (no (unknown) (unknown) Baso # (Auto) (units ( unknown) date) (0-100) /uL unknown) (unknown) (no (unknown) (unknown) Baso # (Auto) 0 (units (unknown) date) (0-100) /uL unknown) (unknown) (no (unknown) (unknown) Baso % (Auto) (units ( unknown) date) (0-2) % unknown) (unknown) (no (unknown) (unknown) Baso % (Auto) 0.9 (units (unknown) date) (0-2) % unknown) (unknown) (no (unknown) (unknown) Bedside Urine (units ( unknown) date) Bilirubin - unknown) Negative (unknown) (no (unknown) (unknown) Bedside Urine (units ( unknown) date) Glucose Negative unknown) (unknown) (no (unknown) (unknown) Bedside Urine (units ( unknown) date) Ketone - Negative unknown) (unknown) (no (unknown) (unknown) Bedside Urine (units ( unknown) date) Leukocytes - unknown) Negative (unknown) (no (unknown) (unknown) Bedside Urine (units ( unknown) date) Nitrite + Positive unknown) (unknown) (no (unknown) (unknown) Bedside Urine (units ( unknown) date) Occult Blood - unknown) Negative (unknown) (no (unknown) (unknown) Bedside Urine (units ( unknown) date) Protein - Negative unknown) (unknown) (no (unknown) (unknown) Bedside Urine (units ( unknown) date) Urobilinogen - unknown) Negative (unknown) (no (unknown) (unknown) Bedside Urine pH (units (unknown) date) 6.0 unknown) (unknown) (no (unknown) (unknown) Blood Pressure (units (unknown) date) 11207/12/22 unknown) 16:10 (unknown) (no (unknown) (unknown) Blood Pressure (units (unknown) date) unknown) (unknown) (no (unknown) (unknown) Blood Pressure (units (unknown) date) [Left Arm] 100/59 L unknown) (unknown) (no (unknown) (unknown) CIWA is now worse (units (unknown) date) and she has unknown) tremors, anxiety is worsening and agitation, (unknown) (no (unknown) (unknown) CIWA-Ar for (units (un known) date) Alcohol Withdrawal unknown) from [facility] on 07/12/2022 (unknown) (no (unknown) (unknown) COVID19 -Nasal (units (unknown) date) RAPID/Pre-Proc Stat unknown) (unknown) (no (unknown) (unknown) Calcium (8.4-10.2) (units (unknown) date) mg/dL unknown) (unknown) (no (unknown) (unknown) Calcium 8.0 L (units ( unknown) date) (8.4-10.2) mg/dL unknown) (unknown) (no (unknown) (unknown) Carbon Dioxide (units (unknown) date) (22-32) mmol/L unknown) (unknown) (no (unknown) (unknown) Carbon Dioxide 23 (units (unknown) date) (22-32) mmol/L unknown) (unknown) (no (unknown) (unknown) Cardiovascular: (units (unknown) date) Tachycardic rate unknown) and rhythm, no peripheral edema, warm (unknown) (no (unknown) (unknown) Cephalexin HCl (units (unknown) date) (Cephalexin 250 Mg unknown) Capsule) 500 mg PO Q6H SANDY (unknown) (no (unknown) (unknown) Chief Complaint: (units (unknown) date) Alcohol unknown) intoxication, seeking detox (unknown) (no (unknown) (unknown) Chief Complaint: (units (unknown) date) Toxicology Problem unknown) (unknown) (no (unknown) (unknown) Chloride (98-107) (units (unknown) date) mmol/L unknown) (unknown) (no (unknown) (unknown) Chloride 104 (units (u nknown) date) (98-107) mmol/L unknown) (unknown) (no (unknown) (unknown) Clinical (units (unkno wn) date) Impression: unknown) (unknown) (no (unknown) (unknown) Clinical decision (units (unknown) date) rules or scores unknown) evaluated: CIWA of 9 at 1753 (unknown) (no (unknown) (unknown) Complete Blood (units (unknown) date) Count AUTO DIFF unknown) Stat (unknown) (no (unknown) (unknown) Comprehensive (units ( unknown) date) Metabolic Panel unknown) Stat (unknown) (no (unknown) (unknown) Consult to WINDOWS [employer]RATION TECHNICIAN - (units (unknown) date) 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 unknown) Stat (unknown) (no (unknown) (unknown) Course of care: (units (unknown) date) Patient is a unknown) difficult IV stick, ordered IV with lab work, (unknown) (no (unknown) (unknown) Course (units (unkno wn) date) unknown) (unknown) (no (unknown) (unknown) Creatinine (units (unk nown) date) (0.52-1.04) mg/dL unknown) (unknown) (no (unknown) (unknown) Creatinine 0.82 (units (unknown) date) (0.52-1.04) mg/dL unknown) (unknown) (no (unknown) (unknown) Samantha Arthur gave her (units (unknown) date) grilled cheese, unknown) soup, some juice and encouraged her to stay (unknown) (no (unknown) (unknown) : 1990 (units (unknown) date) Acct:[id number] unknown) (unknown) (no (unknown) (unknown) Date of Service: (units (unknown) date) 07/12/22 unknown) (unknown) (no (unknown) (unknown) Departure (units (unkn own) date) unknown) (unknown) (no (unknown) (unknown) Differential (units (u nknown) date) diagnoses include unknown) but are not limited to: Alcohol withdrawal, (unknown) (no (unknown) (unknown) Discharge Plan (units (unknown) date) unknown) (unknown) (no (unknown) (unknown) Discontinued (units (u nknown) date) Medications unknown) (unknown) (no (unknown) (unknown) Documented By: KB (units (unknown) date) unknown) (unknown) (no (unknown) (unknown) Documented By: OW (units (unknown) date) unknown) (unknown) (no (unknown) (unknown) ECG Data (units (unkno wn) date) unknown) (unknown) (no (unknown) (unknown) ED Orders (units (unkn own) date) unknown) (unknown) (no (unknown) (unknown) EKG independently (units (unknown) date) reviewed by myself unknown) at 1830 reveals normal sinus rhythm at 72 (unknown) (no (unknown) (unknown) EKG-12 Lead Stat (units (unknown) date) unknown) (unknown) (no (unknown) (unknown) ER Physician: (units ( unknown) date) Reinaldo Arthur D.O. unknown) (unknown) (no (unknown) (unknown) Emergency Report (units (unknown) date) unknown) (unknown) (no (unknown) (unknown) Eos # (Auto) (units (u nknown) date) (0-450) /uL unknown) (unknown) (no (unknown) (unknown) Eos # (Auto) 0 (units (unknown) date) (0-450) /uL unknown) (unknown) (no (unknown) (unknown) Eos % (Auto) (2-4) (units (unknown) date) % unknown) (unknown) (no (unknown) (unknown) Eos % (Auto) 0.3 L (units (unknown) date) (2-4) % unknown) (unknown) (no (unknown) (unknown) Esterase (units (unkno wn) date) unknown) (unknown) (no (unknown) (unknown) Estimated GFR > 60 (units (unknown) date) (>60) mL/min unknown) (unknown) (no (unknown) (unknown) Estimated GFR (units ( unknown) date) (>60) mL/min unknown) (unknown) (no (unknown) (unknown) Ethanol (ETOH) (units (unknown) date) Stat unknown) (unknown) (no (unknown) (unknown) Ethyl Alcohol ( - (units (unknown) date) 10) mg/dL unknown) (unknown) (no (unknown) (unknown) Ethyl Alcohol 338 (units (unknown) date) H ( - 10) mg/dL unknown) (unknown) (no (unknown) (unknown) Exam Narrative: (units (unknown) date) unknown) (unknown) (no (unknown) (unknown) Exam (units (unkno wn) date) unknown) (unknown) (no (unknown) (unknown) Family History (units (unknown) date) (Reviewed 07/12/22 unknown) @ 17:50 by LYUDMILA Do) (unknown) (no (unknown) (unknown) Family/Other (units (u nknown) date) Alcoholism unknown) (unknown) (no (unknown) (unknown) Family/Other (units (u nknown) date) Diabetes mellitus unknown) (unknown) (no (unknown) (unknown) Father Alcoholism (units (unknown) date) unknown) (unknown) (no (unknown) (unknown) Tonia Schneider MD (units (unknown) date) [Primary Care unknown) Provider] (unknown) (no (unknown) (unknown) Folic Acid (Folic (units (unknown) date) Acid 1 Mg Tablet) 1 unknown) mg PO DAILY SANDY (unknown) (no (unknown) (unknown) Free T4 (units (unkno wn) date) (0.78-2.19) ng/dL unknown) (unknown) (no (unknown) (unknown) Free T4 0.93 (units (u nknown) date) (0.78-2.19) ng/dL unknown) (unknown) (no (unknown) (unknown) Free T4, Direct (units (unknown) date) Thyroxine Stat unknown) (unknown) (no (unknown) (unknown) GI: abdomen soft, (units (unknown) date) nontender to unknown) palpation, nondistended, without masses, rebound (unknown) (no (unknown) (unknown) General (units (unkno wn) date) unknown) (unknown) (no (unknown) (unknown) General: (units (unkno wn) date) cooperative, unknown) comfortable, in no acute distress, well groomed, appears (unknown) (no (unknown) (unknown) Globulin (1.7-4.1) (units (unknown) date) g/dL unknown) (unknown) (no (unknown) (unknown) Globulin 3.0 (units (u nknown) date) (1.7-4.1) g/dL unknown) (unknown) (no (unknown) (unknown) Glucose (70-100) (units (unknown) date) mg/dL unknown) (unknown) (no (unknown) (unknown) Glucose 111 H (units ( unknown) date) (70-100) mg/dL [...] extraction () unknown) (unknown) (no (unknown) (unknown) HEENT: symmetrical (units (unknown) date) facial expressions, unknown) dry mucous membranes (unknown) (no (unknown) (unknown) HPI - Alcohol (units ( unknown) date) unknown) (unknown) (no (unknown) (unknown) HPI narrative: (units (unknown) date) unknown) (unknown) (no (unknown) (unknown) Hct (36-46) % (units ( unknown) date) unknown) (unknown) (no (unknown) (unknown) Hct 35.3 L (36-46) (units (unknown) date) % unknown) (unknown) (no (unknown) (unknown) Headache/fullness (units (unknown) date) in head ?> 1 = Very unknown) mild (unknown) (no (unknown) (unknown) Hematuria (units (unkn own) date) presence: without unknown) hematuria Qualified Code(s): N30.00 - Acute (unknown) (no (unknown) (unknown) Hgb (12.0-16.0) (units (unknown) date) g/dL unknown) (unknown) (no (unknown) (unknown) Hgb 11.5 L (units (unk nown) date) (12.0-16.0) g/dL unknown) (unknown) (no (unknown) (unknown) History of Present (units (unknown) date) Illness unknown) (unknown) (no (unknown) (unknown) Home Medications (units (unknown) date) unknown) (unknown) (no (unknown) (unknown) I have (units (unkno wn) date) independently unknown) reviewed the patient's vital signs and nursing notes as (unknown) (no (unknown) (unknown) INPUTS: (units (unkno wn) date) unknown) (unknown) (no (unknown) (unknown) Independent (units (un known) date) historian: Patient unknown) (unknown) (no (unknown) (unknown) Initial Vital (units ( unknown) date) Signs unknown) (unknown) (no (unknown) (unknown) Initial Vital (units ( unknown) date) Signs: unknown) (unknown) (no (unknown) (unknown) Insomnia (units (unkno wn) date) unknown) (unknown) (no (unknown) (unknown) Interpretation: (units (unknown) date) unknown) (unknown) (no (unknown) (unknown) [facility] (units (unknown) date) [address] unknown) [place] [address] (unknown) (no (unknown) (unknown) Lab Data (units (unkno wn) date) unknown) (unknown) (no (unknown) (unknown) Lab Results (units (un known) date) unknown) (unknown) (no (unknown) (unknown) Labs: (units (unkno wn) date) unknown) (unknown) (no (unknown) (unknown) Last Admin: (units (un known) date) 07/12/22 18:39 unknown) Dose: 4 mg (unknown) (no (unknown) (unknown) Last Admin: (units (un known) date) 07/12/22 18:40 unknown) Dose: 1 mg (unknown) (no (unknown) (unknown) Last Admin: (units (un known) date) 07/12/22 18:56 unknown) Dose: Not Given (unknown) (no (unknown) (unknown) Last Admin: (units (un known) date) 07/12/22 19:47 unknown) Dose: 500 mg (unknown) (no (unknown) (unknown) Last Admin: (units (un known) date) 07/12/22 19:48 unknown) Dose: 2 mg (unknown) (no (unknown) (unknown) Last Admin: (units (un known) date) 07/12/22 19:49 unknown) Dose: 100 mg (unknown) (no (unknown) (unknown) Librium but she (units (unknown) date) does not have this unknown) medicine with her, she only has the Seroquel. (unknown) (no (unknown) (unknown) Lorazepam (units (unkn own) date) (Lorazepam 0.5 Mg unknown) Tablet) 1 mg PO NOW ONE (unknown) (no (unknown) (unknown) Lorazepam (units (unkn own) date) (Lorazepam 0.5 Mg unknown) Tablet) 2 mg PO NOW ONE (unknown) (no (unknown) (unknown) Lorazepam (units (unkn own) date) (Lorazepam 2 Mg/Ml unknown) Inj) 2 mg IV NOW ONE (unknown) (no (unknown) (unknown) Lymph # (Auto) (units (unknown) date) (5033-0455) /uL unknown) (unknown) (no (unknown) (unknown) Lymph # (Auto) (units (unknown) date) 1700 (7005-7041) unknown) /uL (unknown) (no (unknown) (unknown) Lymph % (Auto) (units (unknown) date) (25-40) % unknown) (unknown) (no (unknown) (unknown) Lymph % (Auto) (units (unknown) date) 50.6 H (25-40) % unknown) (unknown) (no (unknown) (unknown) MCH (26-34) PG (units (unknown) date) unknown) (unknown) (no (unknown) (unknown) MCH 26.0 (26-34) (units (unknown) date) PG unknown) (unknown) (no (unknown) (unknown) MCHC (30-36) % (units (unknown) date) unknown) (unknown) (no (unknown) (unknown) MCHC 32.7 (30-36) (units (unknown) date) % unknown) (unknown) (no (unknown) (unknown) MCV (80-100) fL (units (unknown) date) unknown) (unknown) (no (unknown) (unknown) MCV 79.5 L (units (unk nown) date) (80-100) fL unknown) (unknown) (no (unknown) (unknown) MDM - Alcohol (units ( unknown) date) unknown) (unknown) (no (unknown) (unknown) MDM Narrative (units ( unknown) date) unknown) (unknown) (no (unknown) (unknown) MIPS: This (units (unk nown) date) encounter doesn't unknown) have any diagnosis' associated with MIPS criteria. (unknown) (no (unknown) (unknown) MSK: moves all (units (unknown) date) extremities, unknown) neurovascularly intact, no weakness, normal tone no (unknown) (no (unknown) (unknown) Medical History (units (unknown) date) (Reviewed 07/12/22 unknown) @ 17:50 by Juliet Paz [facility]) (unknown) (no (unknown) (unknown) Medical decision (units (unknown) date) making narrative: unknown) (unknown) (no (unknown) (unknown) Medication (units (unk nown) date) Instructions unknown) Recorded Confirmed (unknown) (no (unknown) (unknown) Medication (units (unk nown) date) Instructions unknown) Recorded (unknown) (no (unknown) (unknown) Menometrorrhagia (units (unknown) date) unknown) (unknown) (no (unknown) (unknown) Mode of arrival: (units (unknown) date) Ambulatory unknown) (unknown) (no (unknown) (unknown) Yates # (Auto) (units ( unknown) date) (0-900) /uL unknown) (unknown) (no (unknown) (unknown) Yates # (Auto) 100 (units (unknown) date) (0-900) /uL unknown) (unknown) (no (unknown) (unknown) Yates % (Auto) (units ( unknown) date) (3-14) % unknown) (unknown) (no (unknown) (unknown) Yates % (Auto) 2.7 (units (unknown) date) L (3-14) % unknown) (unknown) (no (unknown) (unknown) Mother Diabetes (units (unknown) date) mellitus unknown) (unknown) (no (unknown) (unknown) Narrative (units (unkn own) date) unknown) (unknown) (no (unknown) (unknown) Nausea/vomiting ?> (units (unknown) date) 0 = No nausea and unknown) no vomiting (unknown) (no (unknown) (unknown) Neuro: normal (units ( unknown) date) speech and unknown) cognition, A+O x3, ambulatory, clear speech (unknown) (no (unknown) (unknown) Neut # (Auto) (units ( unknown) date) (5640-0190) /uL unknown) (unknown) (no (unknown) (unknown) Neut # (Auto) 1500 (units (unknown) date) (1493-6489) /uL unknown) (unknown) (no (unknown) (unknown) Neut % (Auto) (units ( unknown) date) (50-75) % unknown) (unknown) (no (unknown) (unknown) Neut % (Auto) 45.5 (units (unknown) date) L (50-75) % unknown) (unknown) (no (unknown) (unknown) No Action (units (unkn own) date) unknown) (unknown) (no (unknown) (unknown) Obesity (units (unkno wn) date) unknown) (unknown) (no (unknown) (unknown) Ondansetron HCl (units (unknown) date) (Ondansetron 4 Mg unknown) Odt) 4 mg SL NOW ONE (unknown) (no (unknown) (unknown) Ondansetron HCl (units (unknown) date) (Ondansetron 4 Mg/2 unknown) Ml Inj) 4 mg IV Q6HR PRN (unknown) (no (unknown) (unknown) Ordered: (units (unkno wn) date) unknown) (unknown) (no (unknown) (unknown) Orders (units (unkno wn) date) unknown) (unknown) (no (unknown) (unknown) Orientation/cloudi (units (unknown) date) ng of sensorium ?> unknown) 0 = Oriented, can do serial additions (unknown) (no (unknown) (unknown) Overweight (units (unk nown) date) unknown) (unknown) (no (unknown) (unknown) Oxygen Delivery (units (unknown) date) Method Room Air unknown) 07/12/22 16:10 (unknown) (no (unknown) (unknown) Oxygen Delivery (units (unknown) date) Method Room Air unknown) Room Air (unknown) (no (unknown) (unknown) PRN Reason: Nausea (units (unknown) date) And Vomiting unknown) (unknown) (no (unknown) (unknown) Paroxysmal sweats (units (unknown) date) ?> 0 = No sweat unknown) visible (unknown) (no (unknown) (unknown) Patient (units (unkno wn) date) Disposition: Xfer unknown) [facility] (no (unknown) (unknown) Patient History (units (unknown) date) unknown) (unknown) (no (unknown) (unknown) Patient has (units (un known) date) allergy to Reglan unknown) and hydrocodone. She denies urinary frequency, (unknown) (no (unknown) (unknown) Patient's CIWA at (units (unknown) date) 2020 is 12, I unknown) ordered for her 2 more mg of lorazepam p.o., (unknown) (no (unknown) (unknown) Patient: (units (unkno wn) date) Sarah Connors R unknown) MR#: M (unknown) (no (unknown) (unknown) Patients with (units ( unknown) date) scores >= may unknown) require medication for withdrawal. (unknown) (no (unknown) (unknown) Pertinent lab (units ( unknown) date) findings reviewed: unknown) CBC is pertinent for mild leukopenia of 3.3, (unknown) (no (unknown) (unknown) Plt Count (units (unkn own) date) (150-400) X103/uL unknown) (unknown) (no (unknown) (unknown) Plt Count 226 (units ( unknown) date) (150-400) X103/uL unknown) (unknown) (no (unknown) (unknown) Point of Care (units ( unknown) date) Testing unknown) (unknown) (no (unknown) (unknown) Potassium (units (unkn own) date) (3.4-5.1) mmol/L unknown) (unknown) (no (unknown) (unknown) Potassium 3.9 (units ( unknown) date) (3.4-5.1) mmol/L unknown) (unknown) (no (unknown) (unknown) Test (units (unknown) date) Results Negative unknown) (unknown) (no (unknown) (unknown) Prescriptions: (units (unknown) date) unknown) (unknown) (no (unknown) (unknown) Previous Rx's (units ( unknown) date) unknown) (unknown) (no (unknown) (unknown) Psych: mental (units ( unknown) date) status is intact, unknown) patient has a normal affect although she is (unknown) (no (unknown) (unknown) Pulse Oximetry 99 (units (unknown) date) 07/12/22 16:10 unknown) (unknown) (no (unknown) (unknown) Pulse Oximetry 99 (units (unknown) date) 99 unknown) (unknown) (no (unknown) (unknown) Pulse Rate 82 (units ( unknown) date) 07/12/22 16:10 unknown) (unknown) (no (unknown) (unknown) Pulse Rate 82 86 (units (unknown) date) unknown) (unknown) (no (unknown) (unknown) Qualifiers: (units (un known) date) unknown) (unknown) (no (unknown) (unknown) Questions are (units ( unknown) date) addressed and there unknown) is agreement with the plan and for follow-up. (unknown) (no (unknown) (unknown) RBC (4.0-5.2) (units ( unknown) date) X106/uL unknown) (unknown) (no (unknown) (unknown) RBC 4.44 (4.0-5.2) (units (unknown) date) X106/uL unknown) (unknown) (no (unknown) (unknown) RDW (11.6-14.8) % (units (unknown) date) unknown) (unknown) (no (unknown) (unknown) RDW 17.3 H (units (unk nown) date) (11.6-14.8) % unknown) (unknown) (no (unknown) (unknown) RESULT SUMMARY: (units (unknown) date) unknown) (unknown) (no (unknown) (unknown) ROS Unobtainable: (units (unknown) date) All systems unknown) reviewed + are unremarkable except as noted in HPI (unknown) (no (unknown) (unknown) Referrals: (units (unk nown) date) unknown) (unknown) (no (unknown) (unknown) Related Data (units (u nknown) date) unknown) (unknown) (no (unknown) (unknown) Respiratory Rate (units (unknown) date) 14 07/12/22 16:10 unknown) (unknown) (no (unknown) (unknown) Respiratory Rate (units (unknown) date) 14 unknown) (unknown) (no (unknown) (unknown) Respiratory: (units (u nknown) date) normal effort, able unknown) to speak in complete sentences, without (unknown) (no (unknown) (unknown) Review of Systems (units (unknown) date) unknown) (unknown) (no (unknown) (unknown) Reviewed vitals (units (unknown) date) signs and nursing unknown) notes. (unknown) (no (unknown) (unknown) S/P myringotomy (units (unknown) date) with insertion of unknown) tube (unknown) (no (unknown) (unknown) SARS-CoV-2 (PCR) (units (unknown) date) (Negative) unknown) (unknown) (no (unknown) (unknown) SARS-CoV-2 (PCR) (units (unknown) date) Negative (Negative) unknown) (unknown) (no (unknown) (unknown) (spontaneous (units (unknown) date) vaginal delivery) unknown) (-09/05/18) (unknown) (no (unknown) (unknown) Salicylate Stat (units (unknown) date) unknown) (unknown) (no (unknown) (unknown) Salicylates < 1.0 (units (unknown) date) (<20) mg/dL unknown) (unknown) (no (unknown) (unknown) Salicylates (<20) (units (unknown) date) mg/dL unknown) (unknown) (no (unknown) (unknown) She was given a (units (unknown) date) couple water, a unknown) diet order was ordered however they may not (unknown) (no (unknown) (unknown) Signed By: (units (unk nown) date) unknown) (unknown) (no (unknown) (unknown) Skin: brisk (units (un known) date) capillary refill, unknown) without pallor or erythema (unknown) (no (unknown) (unknown) Smoker (units (unkno wn) date) unknown) (unknown) (no (unknown) (unknown) [place] and (units (unknown) date) [place] in the unknown) past. She has been sober for a total of 18 (unknown) (no (unknown) (unknown) Smoking Status: (units (unknown) date) Former smoker unknown) (unknown) (no (unknown) (unknown) Social History (units (unknown) date) (Reviewed 07/12/22 unknown) @ 17:50 by Juliet Paz [facility]) (unknown) (no (unknown) (unknown) Social (units (unkno wn) date) considerations that unknown) may affect disposition: none (unknown) (no (unknown) (unknown) Sodium (137-145) (units (unknown) date) mmol/L unknown) (unknown) (no (unknown) (unknown) Sodium 140 (units (unk nown) date) (137-145) mmol/L unknown) (unknown) (no (unknown) (unknown) Sodium Chloride (units (unknown) date) (Normal Saline unknown) 0.9%) 1,000 mls @ 1,000 mls/hr IV BOLUS ONE (unknown) (no (unknown) (unknown) Source: patient (units (unknown) date) unknown) (unknown) (no (unknown) (unknown) Stated Complaint: (units (unknown) date) Stress/Depression unknown) (unknown) (no (unknown) (unknown) Stop: 07/12/22 (units (unknown) date) 17:33 unknown) (unknown) (no (unknown) (unknown) Stop: 07/12/22 (units (unknown) date) 17:45 unknown) (unknown) (no (unknown) (unknown) Stop: 07/12/22 (units (unknown) date) 18:28 unknown) (unknown) (no (unknown) (unknown) Stop: 07/12/22 (units (unknown) date) 18:31 unknown) (unknown) (no (unknown) (unknown) Stop: 07/12/22 (units (unknown) date) 19:25 unknown) (unknown) (no (unknown) (unknown) Stop: 07/12/22 (units (unknown) date) 20:03 unknown) (unknown) (no (unknown) (unknown) Substance Use (units ( unknown) date) Type: does not use unknown) (unknown) (no (unknown) (unknown) Surgical History (units (unknown) date) (Reviewed 07/12/22 unknown) @ 17:50 by LYUDMILA Do) (unknown) (no (unknown) (unknown) Tactile (units (unkno wn) date) disturbances ?> 1 = unknown) Very mild itching, pin and needles, burning, or (unknown) (no (unknown) (unknown) Temperature 97.2 F (units (unknown) date) L 07/12/22 16:10 unknown) (unknown) (no (unknown) (unknown) Temperature 97.2 F (units (unknown) date) L unknown) (unknown) (no (unknown) (unknown) Thiamine HCl (units (u nknown) date) (Thiamine 100 Mg unknown) Tablet) 100 mg PO NOW ONE (unknown) (no (unknown) (unknown) Thiamine HCl 200 (units (unknown) date) mg/ Sodium unknown) (Chloride) 102 mls @ 408 mls/hr IV NOW ONE (unknown) (no (unknown) (unknown) This is a (units (unkn own) date) 31-year-old female unknown) with history of alcohol abuse and appears to have (unknown) (no (unknown) (unknown) Thyroid (units (unkno wn) date) Stimulating Hormone unknown) Stat (unknown) (no (unknown) (unknown) Time Seen by (units (u nknown) date) Provider: 07/12/22 unknown) 17:05 (unknown) (no (unknown) (unknown) Total Bilirubin (units (unknown) date) (0.2-1.3) mg/dL unknown) (unknown) (no (unknown) (unknown) Total Bilirubin (units (unknown) date) 0.4 (0.2-1.3) mg/dL unknown) (unknown) (no (unknown) (unknown) Total Protein (units ( unknown) date) (6.3-8.2) g/dL unknown) (unknown) (no (unknown) (unknown) Total Protein 7.3 (units (unknown) date) (6.3-8.2) g/dL unknown) (unknown) (no (unknown) (unknown) Tremor ?> 1 = Not (units (unknown) date) visible, but can be unknown) felt fingertip to fingertip (unknown) (no (unknown) (unknown) U Benzodiazepines (units (unknown) date) Scrn (Negative) unknown) (unknown) (no (unknown) (unknown) U Benzodiazepines (units (unknown) date) Scrn Negative unknown) (Negative) (unknown) (no (unknown) (unknown) U Marijuana (THC) (units (unknown) date) Screen (Negative) unknown) (unknown) (no (unknown) (unknown) U Marijuana (THC) (units (unknown) date) Screen Negative unknown) (Negative) (unknown) (no (unknown) (unknown) U Methamphetamines (units (unknown) date) Scrn (Negative) unknown) (unknown) (no (unknown) (unknown) U Methamphetamines (units (unknown) date) Scrn Negative unknown) (Negative) (unknown) (no (unknown) (unknown) U Opiates 300ng/mL (units (unknown) date) cut (Negative) unknown) (unknown) (no (unknown) (unknown) U Opiates 300ng/mL (units (unknown) date) cut Negative unknown) (Negative) (unknown) (no (unknown) (unknown) U Tricyclic (units (un known) date) Antidepress unknown) (Negative) (unknown) (no (unknown) (unknown) U Tricyclic (units (un known) date) Antidepress unknown) Negative (Negative) (unknown) (no (unknown) (unknown) Ur Amphetamines (units (unknown) date) Screen (Negative) unknown) (unknown) (no (unknown) (unknown) Ur Amphetamines (units (unknown) date) Screen Negative unknown) (Negative) (unknown) (no (unknown) (unknown) Ur Barbiturates (units (unknown) date) Screen (Negative) unknown) (unknown) (no (unknown) (unknown) Ur Barbiturates (units (unknown) date) Screen Negative unknown) (Negative) (unknown) (no (unknown) (unknown) Ur Culture (units (unk nown) date) Indicated? Specimen unknown) cultured (unknown) (no (unknown) (unknown) Ur Culture (units (unk nown) date) Indicated? unknown) (unknown) (no (unknown) (unknown) Ur MDMA Scrn (units (u nknown) date) (Ecstasy) unknown) (Negative) (unknown) (no (unknown) (unknown) Ur MDMA Scrn (units (u nknown) date) (Ecstasy) Negative unknown) (Negative) (unknown) (no (unknown) (unknown) Ur Oxycodone (units (u nknown) date) Screen (Negative) unknown) (unknown) (no (unknown) (unknown) Ur Oxycodone (units (u nknown) date) Screen Negative unknown) (Negative) (unknown) (no (unknown) (unknown) Ur Phencyclidine (units (unknown) date) Scrn (Negative) unknown) (unknown) (no (unknown) (unknown) Ur Phencyclidine (units (unknown) date) Scrn Negative unknown) (Negative) (unknown) (no (unknown) (unknown) Ur Squamous Epith (units (unknown) date) Cells (0-5/HPF) unknown) (unknown) (no (unknown) (unknown) Ur Squamous Epith (units (unknown) date) Cells 1-5 /hpf unknown) (0-5/HPF) (unknown) (no (unknown) (unknown) Urine Bacteria (units (unknown) date) (None) unknown) (unknown) (no (unknown) (unknown) Urine Bacteria (units (unknown) date) Many (>30) H (None) unknown) (unknown) (no (unknown) (unknown) Urine Cocaine (units ( unknown) date) Screen (Negative) unknown) (unknown) (no (unknown) (unknown) Urine Cocaine (units ( unknown) date) Screen Negative unknown) (Negative) (unknown) (no (unknown) (unknown) Urine Culture Stat (units (unknown) date) unknown) (unknown) (no (unknown) (unknown) Urine Dip (units (unkn own) date) unknown) (unknown) (no (unknown) (unknown) Urine Drug Screen, (units (unknown) date) Rapid Stat unknown) (unknown) (no (unknown) (unknown) Urine Methadone (units (unknown) date) Screen (Negative) unknown) (unknown) (no (unknown) (unknown) Urine Methadone (units (unknown) date) Screen Negative unknown) (Negative) (unknown) (no (unknown) (unknown) Urine Microscopic (units (unknown) date) Stat unknown) (unknown) (no (unknown) (unknown) Urine RBC (units (unkn own) date) (0-5/HPF) unknown) (unknown) (no (unknown) (unknown) Urine RBC 1-5/hpf (units (unknown) date) (0-5/HPF) unknown) (unknown) (no (unknown) (unknown) Urine Specific (units (unknown) date) [place] 1.015 unknown) (unknown) (no (unknown) (unknown) Urine WBC (units (unkn own) date) (0-5/HPF) unknown) (unknown) (no (unknown) (unknown) Urine WBC 1-5/hpf (units (unknown) date) (0-5/HPF) unknown) (unknown) (no (unknown) (unknown) Urine microscopy (units (unknown) date) with many bacteria, unknown) pending for culture, will treat for acute (unknown) (no (unknown) (unknown) Visual (units (unkno wn) date) disturbances ?> 1 = unknown) Very mild sensitivity (unknown) (no (unknown) (unknown) Vital Signs - 8 hr (units (unknown) date) unknown) (unknown) (no (unknown) (unknown) Vital Signs (units (un known) date) unknown) (unknown) (no (unknown) (unknown) Vital signs: (units (u nknown) date) unknown) (unknown) (no (unknown) (unknown) WBC (4.5-11.0) (units (unknown) date) X103/uL unknown) (unknown) (no (unknown) (unknown) WBC 3.3 L (units (unkn own) date) (4.5-11.0) X103/uL unknown) (unknown) (no (unknown) (unknown) [Embedded Image (units (unknown) date) Not Available] unknown) (unknown) (no (unknown) (unknown) [METOCLOPRAMIDE] (units (unknown) date) unknown) (unknown) (no (unknown) (unknown) acceptable. She is (units (unknown) date) nauseated, without unknown) vomiting, received Zofran previously and (unknown) (no (unknown) (unknown) acetaminophen 325 (units (unknown) date) mg tablet 325 mg PO unknown) Q6H PRN pain #20 tabs 02/05/20 (unknown) (no (unknown) (unknown) acetaminophen (units ( unknown) date) [Tylenol] 325 mg unknown) tablet (unknown) (no (unknown) (unknown) alcohol in 300s, (units (unknown) date) she was last here unknown) in the emergency department in May of (unknown) (no (unknown) (unknown) alcohol intake (units (unknown) date) frequency: 3 or unknown) more drinks per day (unknown) (no (unknown) (unknown) alcohol intake: (units (unknown) date) former unknown) (unknown) (no (unknown) (unknown) and below (units (unkn own) date) unknown) (unknown) (no (unknown) (unknown) and she drinking (units (unknown) date) daily since this unknown) happened. She wants rehab. She has been (unknown) (no (unknown) (unknown) anxious, (units (unkno wn) date) intoxicated and now unknown) withdrawing. pleasant and cooperative (unknown) (no (unknown) (unknown) arrhythmia, or (units (unknown) date) acute ischemic unknown) changes. (unknown) (no (unknown) (unknown) at extension and (units (unknown) date) states that she unknown) feels symptoms of alcohol withdrawal. Denies (unknown) (no (unknown) (unknown) being depressed at (units (unknown) date) this time, CIWA is unknown) an 8. (unknown) (no (unknown) (unknown) bpm with rightward (units (unknown) date) axis and normal unknown) intervals. No STEMI, ST segment changes, (unknown) (no (unknown) (unknown) current (units (unkno wn) date) occupational unknown) exposures/hazards: Yes (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 with Pandemic ) (unknown) (no (unknown) (unknown) cystitis without (units (unknown) date) hematuria unknown) (unknown) (no (unknown) (unknown) cystitis (units (unkno wn) date) unknown) (unknown) (no (unknown) (unknown) cystitis, she is (units (unknown) date) p.o. tolerant, unknown) still pending lab work (unknown) (no (unknown) (unknown) deliver since it (units (unknown) date) is after 17:00 and unknown) the diet order was ordered at 17:30. Samira (unknown) (no (unknown) (unknown) detox 11 times, (units (unknown) date) states that it has unknown) taking Antabuse, Librium, Ativan, she denies (unknown) (no (unknown) (unknown) detox as well. (units (unknown) date) unknown) (unknown) (no (unknown) (unknown) diarrhea or (units (un known) date) current stool unknown) changes. (unknown) (no (unknown) (unknown) diphenhydramine (units (unknown) [...] mg unknown) capsule (unknown) (no (unknown) (unknown) draw her labs (units ( unknown) date) unknown) (unknown) (no (unknown) (unknown) education level: (units (unknown) date) college unknown) (unknown) (no (unknown) (unknown) electrolyte (units (un known) date) abnormalities. unknown) (unknown) (no (unknown) (unknown) emergency (units (unkn own) date) department on unknown) 06/18/2022 and a few days prior to that with a blood (unknown) (no (unknown) (unknown) extremities (units (un known) date) unknown) (unknown) (no (unknown) (unknown) renee/zoroastrianism: (units (unknown) date) Buddhist unknown) (unknown) (no (unknown) (unknown) fidgeting (units (unkn own) date) unknown) (unknown) (no (unknown) (unknown) fluid, EtOH, and (units (unknown) date) CIWA, ordered 2 mg unknown) of IV lorazepam for patient's symptoms, (unknown) (no (unknown) (unknown) for alcohol (units (un known) date) related complaints unknown) through 2019, and she presented to the [facility] (unknown) (no (unknown) (unknown) from social work (units (unknown) date) is aware and unknown) pending her lab work to arrange for inpatient (unknown) (no (unknown) (unknown) go to detox. She (units (unknown) date) is currently unknown) intoxicated endorses symptoms of alcohol (unknown) (no (unknown) (unknown) her urine (units (unkn own) date) microscopy came unknown) back positive for many bacteria, will treat for acute (unknown) (no (unknown) (unknown) household members: (units (unknown) date) spouse and children unknown) (unknown) (no (unknown) (unknown) hydrated. (units (unkn own) date) unknown) (unknown) (no (unknown) (unknown) hydrocodone (units (un known) date) [HYDROCODONE] unknown) AdvReac Unknown VOMITING Verified 07/12/22 16:18 (unknown) (no (unknown) (unknown) ibuprofen 600 mg (units (unknown) date) Tablet unknown) (unknown) (no (unknown) (unknown) ibuprofen 600 mg (units (unknown) date) tablet 600 mg PO unknown) Q6HR PRN Pain, Mild 07/04/20 (unknown) (no (unknown) (unknown) intoxicated, (units (u nknown) date) pleasant, unknown) interactive and comfortable although active, anxious and (unknown) (no (unknown) (unknown) is 338, COVID PCR (units (unknown) date) was negative, drug unknown) screen is negative for all tested agents, (unknown) (no (unknown) (unknown) is allergic to (units ( unknown) date) Reglan, will dose unknown) with another 5 mg of Zofran, no QT prolongation (unknown) (no (unknown) (unknown) knowing if she is (units (unknown) date) had phenobarbital unknown) in the past. (unknown) (no (unknown) (unknown) limited history (units (unknown) date) currently due to unknown) intoxication. She states that she is recently (unknown) (no (unknown) (unknown) lorazepam at 2 mg (units (unknown) date) for this. unknown) (unknown) (no (unknown) (unknown) marital status: (units (unknown) date) unknown) (unknown) (no (unknown) (unknown) metoclopramide (units (unknown) date) Allergy Mild unknown) RASH/HIVES Verified 07/12/22 16:18 (unknown) (no (unknown) (unknown) mild anemia but (units (unknown) date) improved from her unknown) prior with H+H of 11.5 and 35.3, no evidence (unknown) (no (unknown) (unknown) months. She denies (units (unknown) date) any recent unknown) injuries, denies chance of , denies any (unknown) (no (unknown) (unknown) nausea vomiting or (units (unknown) date) abdominal pain at unknown) this time. 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 (units (u nknown) date) Ativan for her unknown) symptoms and ask our into call lab to come up and (unknown) (no (unknown) (unknown) other ingestions, (units (unknown) date) is pleasant, unknown) seeking help with her intoxication and wishes to (unknown) (no (unknown) (unknown) patient's (units (unknown) date) is at the bedside unknown) offering support, she raises nausea, another (unknown) (no (unknown) (unknown) prenat.vits,otis,mi (units (unknown) date) [id number] 1 tab unknown) PO DAILY 12/30/19 07/03/20 (unknown) (no (unknown) (unknown) prenat.vits,otis,mi (units (unknown) date) [id number] Tablet unknown) (unknown) (no (unknown) (unknown) relapsed due to a (units (unknown) date) divorce with her unknown) . She used to be a frequent visitor (unknown) (no (unknown) (unknown) second hand (units (un known) date) exposure: No unknown) (growing up as a child - not currently) (unknown) (no (unknown) (unknown) significant tremor (units (unknown) date) or tongue unknown) fasciculation, she has a mild tremor with her arms (unknown) (no (unknown) (unknown) social work and (units (unknown) date) orders are pending unknown) (unknown) (no (unknown) (unknown) special renee (units ( unknown) date) needs: No unknown) (unknown) (no (unknown) (unknown) substance abuse, (units (unknown) date) alcohol unknown) intoxication, psychosis, mood disorder, depression (unknown) (no (unknown) (unknown) substance use (units ( unknown) date) type: does not use unknown) (unknown) (no (unknown) (unknown) tablet vomiting (units (unknown) date) #14 tabs unknown) (unknown) (no (unknown) (unknown) tablet vomiting (units (unknown) date) #20 tabs unknown) (unknown) (no (unknown) (unknown) tablet vomiting (units (unknown) date) #30 tabs unknown) (unknown) (no (unknown) (unknown) tenderness or (units ( unknown) date) exquisite unknown) tenderness with exam. (unknown) (no (unknown) (unknown) that she drinks (units (unknown) date) vodka and admits to unknown) drinking heavily today, states that she took (unknown) (no (unknown) (unknown) the bottle upside (units (unknown) date) down and started unknown) checking from it. She states that she drank (unknown) (no (unknown) (unknown) thyroid studies (units (unknown) date) are still pending. unknown) No significant findings to her CMP. No (unknown) (no (unknown) (unknown) tramadol 50 mg (units (unknown) date) tablet 50 mg PO Q6H unknown) PRN pain #10 tabs 06/12/22 (unknown) (no (unknown) (unknown) tramadol 50 mg (units (unknown) date) tablet unknown) (unknown) (no (unknown) (unknown) tremors, no (units (un known) date) tachycardia, her unknown) CIWA is currently 10, ordered another p.o. dose of (unknown) (no (unknown) (unknown) urgency or flank (units (unknown) date) pain, endorses unknown) nausea without vomiting. Patient has been to (unknown) (no (unknown) (unknown) well as prior (units ( unknown) date) records if unknown) available. (unknown) (no (unknown) (unknown) wheezing, stridor, (units (unknown) date) or abnormal breath unknown) sounds. No retractions or tachypnea. (unknown) (no (unknown) (unknown) withdrawal. (units (un known) date) Patient states that unknown) she takes Seroquel 300 mg at night as well as Result panel [id number] (unknown) (no date) (unknown) (unknown) 0.93 ng/dl (unkn own) (unknown) (no date) (unknown) (unknown) 1.24 uiu/ml (unkn own) Result panel [id number] (unknown) (no (unknown) (unknown) (no value) (units (unk nown) date) unknown) (unknown) (no (unknown) (unknown) <Juliet Paz, (units (unknown) date) RECREATION PROGRAMMER - Last Filed: unknown) 07/12/22 20:27> (unknown) (no (unknown) (unknown) <Reinaldo Arthur, DO (units (unknown) date) - Last Filed: unknown) 07/13/22 05:26> (unknown) (no (unknown) (unknown) (1-3) #30 tabs (units (unknown) date) unknown) (unknown) (no (unknown) (unknown) (Benadryl) caps (units (unknown) date) unknown) (unknown) (no (unknown) (unknown) (Colace) (units (unkno wn) date) unknown) (unknown) (no (unknown) (unknown) (Tylenol) (units (unkn own) date) unknown) (unknown) (no (unknown) (unknown) [id number] (units (unkn own) date) unknown) (unknown) (no (unknown) (unknown) 01:28 07/13/22 (units (unknown) date) unknown) (unknown) (no (unknown) (unknown) 01:50 (units (unkno wn) date) unknown) (unknown) (no (unknown) (unknown) 02:00 07/13/22 (units (unknown) date) unknown) (unknown) (no (unknown) (unknown) 02:14 07/13/22 (units (unknown) date) unknown) (unknown) (no (unknown) (unknown) 02:14 (units (unkno wn) date) unknown) (unknown) (no (unknown) (unknown) 02:30 (units (unkno wn) date) unknown) (unknown) (no (unknown) (unknown) 07/12/22 07/12/22 (units (unknown) date) 07/12/22 unknown) Range/Units (unknown) (no (unknown) (unknown) 07/12/22 19:15 (units (unknown) date) unknown) (unknown) (no (unknown) (unknown) 07/12/22 (units (unkno wn) date) unknown) (unknown) (no (unknown) (unknown) 07/13/22 (units (unkno wn) date) unknown) (unknown) (no (unknown) (unknown) 0530 -patient (units ( unknown) date) beginning to feel a unknown) bit agitated and restless, she is tachycardic (unknown) (no (unknown) (unknown) 1 tab PO DAILY (units (unknown) date) unknown) (unknown) (no (unknown) (unknown) 100 mg PO BID Qty: (units (unknown) date) 30 0RF unknown) (unknown) (no (unknown) (unknown) 16:32 16:32 16:32 (units (unknown) date) unknown) (unknown) (no (unknown) (unknown) 183 patient still (units (unknown) date) does not have an unknown) IV, has not received any IV fluid her (unknown) (no (unknown) (unknown) 1899 still no IV, (units (unknown) date) patient is p.o. unknown) challenging, she received her p.o. lorazepam, (unknown) (no (unknown) (unknown) 1929, patient now (units (unknown) date) feels depressed, unknown) she is lying in bed, feeling bad, has (unknown) (no (unknown) (unknown) 19:15 19:15 19:15 (units (unknown) date) unknown) (unknown) (no (unknown) (unknown) 1999 patient is (units (unknown) date) feeling better now, unknown) her lab work is starting to return and ETOH (unknown) (no (unknown) (unknown) 2002 patient (units (u nknown) date) requests to take unknown) her home dosing of Seroquel 300 mg, this is (unknown) (no (unknown) (unknown) 2022 with similar (units (unknown) date) symptoms. She comes unknown) in complaining of needing help, states (unknown) (no (unknown) (unknown) 2199 -smoker point (units (unknown) date) called back and unknown) states that patient must have free CIWA (unknown) (no (unknown) (unknown) 23:30 07/13/22 (units (unknown) date) unknown) (unknown) (no (unknown) (unknown) 25 mg PO BEDTIME (units (unknown) date) PRN (Reason: unknown) insomnia) Qty: 20 0RF (unknown) (no (unknown) (unknown) 325 mg PO Q6H PRN (units (unknown) date) (Reason: pain) Qty: unknown) 20 0RF (unknown) (no (unknown) (unknown) 4 Zofran was (units (u nknown) date) ordered. So has not unknown) been given, patient is signed out to (unknown) (no (unknown) (unknown) 4 mg PO [...] Qty: 30 0RF (unknown) (no (unknown) (unknown) 750 mL of time. (units (unknown) date) She just she has unknown) nothing to do but relapsed. This 3 weeks ago (unknown) (no (unknown) (unknown) 9 points (units (unkno wn) date) unknown) (unknown) (no (unknown) (unknown) ALT (<35) IU/L (units (unknown) date) unknown) (unknown) (no (unknown) (unknown) ALT 21 (<35) IU/L (units (unknown) date) unknown) (unknown) (no (unknown) (unknown) AST (14-36) IU/L (units (unknown) date) unknown) (unknown) (no (unknown) (unknown) AST 67 H (14-36) (units (unknown) date) IU/L unknown) (unknown) (no (unknown) (unknown) Acetaminophen < 10 (units (unknown) date) (10-30) ug/mL unknown) (unknown) (no (unknown) (unknown) Acetaminophen (units ( unknown) date) (10-30) ug/mL unknown) (unknown) (no (unknown) (unknown) Acute cystitis (units (unknown) date) unknown) (unknown) (no (unknown) (unknown) Admin: 07/12/22 (units (unknown) date) 19:47 Dose: 500 mg unknown) (unknown) (no (unknown) (unknown) Age/Sex: 31 / F (units (unknown) date) unknown) (unknown) (no (unknown) (unknown) Agitation ?> 2 = (units (unknown) date) (More severe unknown) symptoms) (unknown) (no (unknown) (unknown) Albumin (3.5-5.0) (units (unknown) date) g/dL unknown) (unknown) (no (unknown) (unknown) Albumin 4.3 (units (un known) date) (3.5-5.0) g/dL unknown) (unknown) (no (unknown) (unknown) Albumin/Globulin (units (unknown) date) Ratio (1.0-2.8) unknown) (unknown) (no (unknown) (unknown) Albumin/Globulin (units (unknown) date) Ratio 1.4 (1.0-2.8) unknown) (unknown) (no (unknown) (unknown) Alcohol use (units (un known) date) disorder unknown) (unknown) (no (unknown) (unknown) Alcoholism (units (unk nown) date) unknown) (unknown) (no (unknown) (unknown) Alkaline (units (unkno wn) date) Phosphatase unknown) (38-126) U/L (unknown) (no (unknown) (unknown) Alkaline (units (unkno wn) date) Phosphatase 98 unknown) (38-126) U/L (unknown) (no (unknown) (unknown) Allergies (units (unkn own) date) unknown) (unknown) (no (unknown) (unknown) Allergy/AdvReac (units (unknown) date) Type Severity unknown) Reaction Status Date / Time (unknown) (no (unknown) (unknown) Anemia (-2018) (units (unknown) date) unknown) (unknown) (no (unknown) (unknown) Anxiety ?> 2 = (units (unknown) date) (More severe unknown) symptoms) (unknown) (no (unknown) (unknown) Auditory (units (unkno wn) date) disturbances ?> 1 = unknown) Very mild harshness or ability to frighten (unknown) (no (unknown) (unknown) BUN (7-17) mg/dL (units (unknown) date) unknown) (unknown) (no (unknown) (unknown) BUN 9 (7-17) mg/dL (units (unknown) date) unknown) (unknown) (no (unknown) (unknown) BUN/Creatinine (units (unknown) date) Ratio (6-22) unknown) (unknown) (no (unknown) (unknown) BUN/Creatinine (units (unknown) date) Ratio 11.0 (6-22) unknown) (unknown) (no (unknown) (unknown) Baso # (Auto) (units ( unknown) date) (0-100) /uL unknown) (unknown) (no (unknown) (unknown) Baso # (Auto) 0 (units (unknown) date) (0-100) /uL unknown) (unknown) (no (unknown) (unknown) Baso % (Auto) (units ( unknown) date) (0-2) % unknown) (unknown) (no (unknown) (unknown) Baso % (Auto) 0.9 (units (unknown) date) (0-2) % unknown) (unknown) (no (unknown) (unknown) Bedside Urine (units ( unknown) date) Bilirubin - unknown) Negative (unknown) (no (unknown) (unknown) Bedside Urine (units ( unknown) date) Glucose Negative unknown) (unknown) (no (unknown) (unknown) Bedside Urine (units ( unknown) date) Ketone - Negative unknown) (unknown) (no (unknown) (unknown) Bedside Urine (units ( unknown) date) Leukocytes - unknown) Negative (unknown) (no (unknown) (unknown) Bedside Urine (units ( unknown) date) Nitrite + Positive unknown) (unknown) (no (unknown) (unknown) Bedside Urine (units ( unknown) date) Occult Blood - unknown) Negative (unknown) (no (unknown) (unknown) Bedside Urine (units ( unknown) date) Protein - Negative unknown) (unknown) (no (unknown) (unknown) Bedside Urine (units ( unknown) date) Urobilinogen - unknown) Negative (unknown) (no (unknown) (unknown) Bedside Urine pH (units (unknown) date) 6.0 unknown) (unknown) (no (unknown) (unknown) Blood Pressure (units (unknown) date) 102/59 L unknown) (unknown) (no (unknown) (unknown) Blood Pressure (units (unknown) date) 112/62 07/12/22 unknown) 16:10 (unknown) (no (unknown) (unknown) Blood Pressure (units (unknown) date) 99/58 L unknown) (unknown) (no (unknown) (unknown) Blood Pressure (units (unknown) date) [Left Arm] 95/53 L unknown) (unknown) (no (unknown) (unknown) Blood Pressure (units (unknown) date) [Left Arm] unknown) (unknown) (no (unknown) (unknown) Blood Pressure (units (unknown) date) unknown) (unknown) (no (unknown) (unknown) CIWA is now worse (units (unknown) date) and she has unknown) tremors, anxiety is worsening and agitation, (unknown) (no (unknown) (unknown) CIWA-Ar for (units (un known) date) Alcohol Withdrawal unknown) from [facility] on 07/12/2022 (unknown) (no (unknown) (unknown) Calcium (8.4-10.2) (units (unknown) date) mg/dL unknown) (unknown) (no (unknown) (unknown) Calcium 8.0 L (units ( unknown) date) (8.4-10.2) mg/dL unknown) (unknown) (no (unknown) (unknown) Carbon Dioxide (units (unknown) date) (22-32) mmol/L unknown) (unknown) (no (unknown) (unknown) Carbon Dioxide 23 (units (unknown) date) (22-32) mmol/L unknown) (unknown) (no (unknown) (unknown) Cardiovascular: (units (unknown) date) Tachycardic rate unknown) and rhythm, no peripheral edema, warm (unknown) (no (unknown) (unknown) Cephalexin HCl (units (unknown) date) (Cephalexin 250 Mg unknown) Capsule) 500 mg PO Q6H SANDY (unknown) (no (unknown) (unknown) Chief Complaint: (units (unknown) date) Alcohol unknown) intoxication, seeking detox (unknown) (no (unknown) (unknown) Chief Complaint: (units (unknown) date) Toxicology Problem unknown) (unknown) (no (unknown) (unknown) Chloride (98-107) (units (unknown) date) mmol/L unknown) (unknown) (no (unknown) (unknown) Chloride 104 (units (u nknown) date) (98-107) mmol/L unknown) (unknown) (no (unknown) (unknown) Clinical (units (unkno wn) date) Impression: unknown) (unknown) (no (unknown) (unknown) Clinical decision (units (unknown) date) rules or scores unknown) evaluated: CIWA of 9 at 1753 (unknown) (no (unknown) (unknown) Course of care: (units (unknown) date) Patient is a unknown) difficult IV stick, ordered IV with lab work, (unknown) (no (unknown) (unknown) Course (units (unkno wn) date) unknown) (unknown) (no (unknown) (unknown) Creatinine (units (unk nown) date) (0.52-1.04) mg/dL unknown) (unknown) (no (unknown) (unknown) Creatinine 0.82 (units (unknown) date) (0.52-1.04) mg/dL unknown) (unknown) (no (unknown) (unknown) Samantha Arthur gave her (units (unknown) date) grilled cheese, unknown) soup, some juice and encouraged her to stay (unknown) (no (unknown) (unknown) : 1990 (units (unknown) date) Acct:[id number] unknown) (unknown) (no (unknown) (unknown) Date of Service: (units (unknown) date) 07/12/22 unknown) (unknown) (no (unknown) (unknown) Departure (units (unkn own) date) unknown) (unknown) (no (unknown) (unknown) Differential (units (u nknown) date) diagnoses include unknown) but are not limited to: Alcohol withdrawal, (unknown) (no (unknown) (unknown) Discharge Plan (units (unknown) date) unknown) (unknown) (no (unknown) (unknown) Discontinued (units (u nknown) date) Medications unknown) (unknown) (no (unknown) (unknown) Documented By: AP (units (unknown) date) unknown) (unknown) (no (unknown) (unknown) Documented By: KB (units (unknown) date) unknown) (unknown) (no (unknown) (unknown) Documented By: OW (units (unknown) date) unknown) (unknown) (no (unknown) (unknown) ECG Data (units (unkno wn) date) unknown) (unknown) (no (unknown) (unknown) EKG independently (units (unknown) date) reviewed by myself unknown) at 1830 reveals normal sinus rhythm at 72 (unknown) (no (unknown) (unknown) ER Physician: (units ( unknown) date) Reinaldo Arthur D.O. unknown) (unknown) (no (unknown) (unknown) Emergency Report (units (unknown) date) unknown) (unknown) (no (unknown) (unknown) Eos # (Auto) (units (u nknown) date) (0-450) /uL unknown) (unknown) (no (unknown) (unknown) Eos # (Auto) 0 (units (unknown) date) (0-450) /uL unknown) (unknown) (no (unknown) (unknown) Eos % (Auto) (2-4) (units (unknown) date) % unknown) (unknown) (no (unknown) (unknown) Eos % (Auto) 0.3 L (units (unknown) date) (2-4) % unknown) (unknown) (no (unknown) (unknown) Esterase (units (unkno wn) date) unknown) (unknown) (no (unknown) (unknown) Estimated GFR > 60 (units (unknown) date) (>60) mL/min unknown) (unknown) (no (unknown) (unknown) Estimated GFR (units ( unknown) date) (>60) mL/min unknown) (unknown) (no (unknown) (unknown) Ethyl Alcohol ( - (units (unknown) date) 10) mg/dL unknown) (unknown) (no (unknown) (unknown) Ethyl Alcohol 338 (units (unknown) date) H ( - 10) mg/dL unknown) (unknown) (no (unknown) (unknown) Exam Narrative: (units (unknown) date) unknown) (unknown) (no (unknown) (unknown) Exam (units (unkno wn) date) unknown) (unknown) (no (unknown) (unknown) Family History (units (unknown) date) (Reviewed 07/12/22 unknown) @ 17:50 by LYUDMILA Do) (unknown) (no (unknown) (unknown) Family/Other (units (u nknown) date) Alcoholism unknown) (unknown) (no (unknown) (unknown) Family/Other (units (u nknown) date) Diabetes mellitus unknown) (unknown) (no (unknown) (unknown) Father Alcoholism (units (unknown) date) unknown) (unknown) (no (unknown) (unknown) Tonia Schneider MD (units (unknown) date) [Primary Care unknown) Provider] (unknown) (no (unknown) (unknown) Folic Acid (Folic (units (unknown) date) Acid 1 Mg Tablet) 1 unknown) mg PO DAILY SANDY (unknown) (no (unknown) (unknown) Free T4 (units (unkno wn) date) (0.78-2.19) ng/dL unknown) (unknown) (no (unknown) (unknown) Free T4 0.93 (units (u nknown) date) (0.78-2.19) ng/dL unknown) (unknown) (no (unknown) (unknown) GI: abdomen soft, (units (unknown) date) nontender to unknown) palpation, nondistended, without masses, rebound (unknown) (no (unknown) (unknown) General (units (unkno wn) date) unknown) (unknown) (no (unknown) (unknown) General: (units (unkno wn) date) cooperative, unknown) comfortable, in no acute distress, well groomed, appears (unknown) (no (unknown) (unknown) Globulin (1.7-4.1) (units (unknown) date) g/dL unknown) (unknown) (no (unknown) (unknown) Globulin 3.0 (units (u nknown) date) (1.7-4.1) g/dL unknown) (unknown) (no (unknown) (unknown) Glucose (70-100) (units (unknown) date) mg/dL unknown) (unknown) (no (unknown) (unknown) Glucose 111 H (units ( unknown) date) (70-100) mg/dL [...] extraction () unknown) (unknown) (no (unknown) (unknown) HEENT: symmetrical (units (unknown) date) facial expressions, unknown) dry mucous membranes (unknown) (no (unknown) (unknown) HPI - Alcohol (units ( unknown) date) unknown) (unknown) (no (unknown) (unknown) HPI narrative: (units (unknown) date) unknown) (unknown) (no (unknown) (unknown) Hct (36-46) % (units ( unknown) date) unknown) (unknown) (no (unknown) (unknown) Hct 35.3 L (36-46) (units (unknown) date) % unknown) (unknown) (no (unknown) (unknown) Headache/fullness (units (unknown) date) in head ?> 1 = Very unknown) mild (unknown) (no (unknown) (unknown) Hematuria (units (unkn own) date) presence: without unknown) hematuria Qualified Code(s): N30.00 - Acute (unknown) (no (unknown) (unknown) Hgb (12.0-16.0) (units (unknown) date) g/dL unknown) (unknown) (no (unknown) (unknown) Hgb 11.5 L (units (unk nown) date) (12.0-16.0) g/dL unknown) (unknown) (no (unknown) (unknown) History of Present (units (unknown) date) Illness unknown) (unknown) (no (unknown) (unknown) Home Medications (units (unknown) date) unknown) (unknown) (no (unknown) (unknown) I have (units (unkno wn) date) independently unknown) reviewed the patient's vital signs and nursing notes as (unknown) (no (unknown) (unknown) INPUTS: (units (unkno wn) date) unknown) (unknown) (no (unknown) (unknown) Independent (units (un known) date) historian: Patient unknown) (unknown) (no (unknown) (unknown) Initial Vital (units ( unknown) date) Signs unknown) (unknown) (no (unknown) (unknown) Initial Vital (units ( unknown) date) Signs: unknown) (unknown) (no (unknown) (unknown) Insomnia (units (unkno wn) date) unknown) (unknown) (no (unknown) (unknown) Interpretation: (units (unknown) date) unknown) (unknown) (no (unknown) (unknown) [facility] (units (unknown) date) [address] [place] [address] unknown) [place] [address] (unknown) (no (unknown) (unknown) Lab Data (units (unkno wn) date) unknown) (unknown) (no (unknown) (unknown) Lab Results (units (un known) date) unknown) (unknown) (no (unknown) (unknown) Labs: (units (unkno wn) date) unknown) (unknown) (no (unknown) (unknown) Last Admin: (units (un known) date) 07/12/22 18:39 unknown) Dose: 4 mg (unknown) (no (unknown) (unknown) Last Admin: (units (un known) date) 07/12/22 18:40 unknown) Dose: 1 mg (unknown) (no (unknown) (unknown) Last Admin: (units (un known) date) 07/12/22 18:56 unknown) Dose: Not Given (unknown) (no (unknown) (unknown) Last Admin: (units (un known) date) 07/12/22 19:48 unknown) Dose: 2 mg (unknown) (no (unknown) (unknown) Last Admin: (units (un known) date) 07/12/22 19:49 unknown) Dose: 100 mg (unknown) (no (unknown) (unknown) Last Admin: (units (un known) date) 07/13/22 02:11 unknown) Dose: 500 mg (unknown) (no (unknown) (unknown) Last Admin: (units (un known) date) 07/13/22 03:36 unknown) Dose: 2 mg (unknown) (no (unknown) (unknown) Librium but she (units (unknown) date) does not have this unknown) medicine with her, she only has the Seroquel. (unknown) (no (unknown) (unknown) Lorazepam (units (unkn own) date) (Lorazepam 0.5 Mg unknown) Tablet) 1 mg PO NOW ONE (unknown) (no (unknown) (unknown) Lorazepam (units (unkn own) date) (Lorazepam 0.5 Mg unknown) Tablet) 2 mg PO NOW ONE (unknown) (no (unknown) (unknown) Lorazepam (units (unkn own) date) (Lorazepam 2 Mg/Ml unknown) Inj) 2 mg IV NOW ONE (unknown) (no (unknown) (unknown) Lymph # (Auto) (units (unknown) date) (5286-1750) /uL unknown) (unknown) (no (unknown) (unknown) Lymph # (Auto) (units (unknown) date) 1700 (1859-5520) unknown) /uL (unknown) (no (unknown) (unknown) Lymph % (Auto) (units (unknown) date) (25-40) % unknown) (unknown) (no (unknown) (unknown) Lymph % (Auto) (units (unknown) date) 50.6 H (25-40) % unknown) (unknown) (no (unknown) (unknown) MCH (26-34) PG (units (unknown) date) unknown) (unknown) (no (unknown) (unknown) MCH 26.0 (26-34) (units (unknown) date) PG unknown) (unknown) (no (unknown) (unknown) MCHC (30-36) % (units (unknown) date) unknown) (unknown) (no (unknown) (unknown) MCHC 32.7 (30-36) (units (unknown) date) % unknown) (unknown) (no (unknown) (unknown) MCV (80-100) fL (units (unknown) date) unknown) (unknown) (no (unknown) (unknown) MCV 79.5 L (units (unk nown) date) (80-100) fL unknown) (unknown) (no (unknown) (unknown) MDM - Alcohol (units ( unknown) date) unknown) (unknown) (no (unknown) (unknown) MDM Narrative (units ( unknown) date) unknown) (unknown) (no (unknown) (unknown) MIPS: This (units (unk nown) date) encounter doesn't unknown) have any diagnosis' associated with MIPS criteria. (unknown) (no (unknown) (unknown) MSK: moves all (units (unknown) date) extremities, unknown) neurovascularly intact, no weakness, normal tone no (unknown) (no (unknown) (unknown) Medical History (units (unknown) date) (Reviewed 07/12/22 unknown) @ 17:50 by Juliet Paz [facility]) (unknown) (no (unknown) (unknown) Medical decision (units (unknown) date) making narrative: unknown) (unknown) (no (unknown) (unknown) Medication (units (unk nown) date) Instructions unknown) Recorded Confirmed (unknown) (no (unknown) (unknown) Medication (units (unk nown) date) Instructions unknown) Recorded (unknown) (no (unknown) (unknown) Menometrorrhagia (units (unknown) date) unknown) (unknown) (no (unknown) (unknown) Mode of arrival: (units (unknown) date) Ambulatory unknown) (unknown) (no (unknown) (unknown) Yates # (Auto) (units ( unknown) date) (0-900) /uL unknown) (unknown) (no (unknown) (unknown) Yates # (Auto) 100 (units (unknown) date) (0-900) /uL unknown) (unknown) (no (unknown) (unknown) Yates % (Auto) (units ( unknown) date) (3-14) % unknown) (unknown) (no (unknown) (unknown) Yates % (Auto) 2.7 (units (unknown) date) L (3-14) % unknown) (unknown) (no (unknown) (unknown) Mother Diabetes (units (unknown) date) mellitus unknown) (unknown) (no (unknown) (unknown) Narrative (units (unkn own) date) unknown) (unknown) (no (unknown) (unknown) Nausea/vomiting ?> (units (unknown) date) 0 = No nausea and unknown) no vomiting (unknown) (no (unknown) (unknown) Neuro: normal (units ( unknown) date) speech and unknown) cognition, A+O x3, ambulatory, clear speech (unknown) (no (unknown) (unknown) Neut # (Auto) (units ( unknown) date) (8674-2403) /uL unknown) (unknown) (no (unknown) (unknown) Neut # (Auto) 1500 (units (unknown) date) (0439-4533) /uL unknown) (unknown) (no (unknown) (unknown) Neut % (Auto) (units ( unknown) date) (50-75) % unknown) (unknown) (no (unknown) (unknown) Neut % (Auto) 45.5 (units (unknown) date) L (50-75) % unknown) (unknown) (no (unknown) (unknown) No Action (units (unkn own) date) unknown) (unknown) (no (unknown) (unknown) Obesity (units (unkno wn) date) unknown) (unknown) (no (unknown) (unknown) Ondansetron HCl (units (unknown) date) (Ondansetron 4 Mg unknown) Odt) 4 mg SL NOW ONE (unknown) (no (unknown) (unknown) Ondansetron HCl (units (unknown) date) (Ondansetron 4 Mg/2 unknown) Ml Inj) 4 mg IV Q6HR PRN (unknown) (no (unknown) (unknown) Ordered: (units (unkno wn) date) unknown) (unknown) (no (unknown) (unknown) Orders (units (unkno wn) date) unknown) (unknown) (no (unknown) (unknown) Orientation/cloudi (units (unknown) date) ng of sensorium ?> unknown) 0 = Oriented, can do serial additions (unknown) (no (unknown) (unknown) Over the course of (units (unknown) date) the night we have unknown) called various other facilities and they (unknown) (no (unknown) (unknown) Overweight (units (unk nown) date) unknown) (unknown) (no (unknown) (unknown) Oxygen Delivery (units (unknown) date) Method Room Air unknown) 07/12/22 16:10 (unknown) (no (unknown) (unknown) Oxygen Delivery (units (unknown) date) Method Room Air unknown) Room Air (unknown) (no (unknown) (unknown) Oxygen Delivery (units (unknown) date) Method unknown) (unknown) (no (unknown) (unknown) PRN Reason: Nausea (units (unknown) date) And Vomiting unknown) (unknown) (no (unknown) (unknown) Paroxysmal sweats (units (unknown) date) ?> 0 = No sweat unknown) visible (unknown) (no (unknown) (unknown) Patient (units (unkno wn) date) Disposition: Xfer unknown[facility] (no (unknown) (unknown) Patient History (units (unknown) date) unknown) (unknown) (no (unknown) (unknown) Patient has (units (un known) date) allergy to Reglan unknown) and hydrocodone. She denies urinary frequency, (unknown) (no (unknown) (unknown) Patient's CIWA at (units (unknown) date) 2020 is 12, I unknown) ordered for her 2 more mg of lorazepam p.o., (unknown) (no (unknown) (unknown) Patient: (units (unkno wn) date) Sarah Connors unknown) MR#: M (unknown) (no (unknown) (unknown) Patients with (units ( unknown) date) scores >= september unknown) require medication for withdrawal. (unknown) (no (unknown) (unknown) Pertinent lab (units ( unknown) date) findings reviewed: unknown) CBC is pertinent for mild leukopenia of 3.3, (unknown) (no (unknown) (unknown) Plt Count (units (unkn own) date) (150-400) X103/uL unknown) (unknown) (no (unknown) (unknown) Plt Count 226 (units ( unknown) date) (150-400) X103/uL unknown) (unknown) (no (unknown) (unknown) Point of Care (units ( unknown) date) Testing unknown) (unknown) (no (unknown) (unknown) Potassium (units (unkn own) date) (3.4-5.1) mmol/L unknown) (unknown) (no (unknown) (unknown) Potassium 3.9 (units ( unknown) date) (3.4-5.1) mmol/L unknown) (unknown) (no (unknown) (unknown) Test (units (unknown) date) Results Negative unknown) (unknown) (no (unknown) (unknown) Prescriptions: (units (unknown) date) unknown) (unknown) (no (unknown) (unknown) Previous Rx's (units ( unknown) date) unknown) (unknown) (no (unknown) (unknown) Psych: mental (units ( unknown) date) status is intact, unknown) patient has a normal affect although she is (unknown) (no (unknown) (unknown) Pulse Oximetry 97 (units (unknown) date) 100 unknown) (unknown) (no (unknown) (unknown) Pulse Oximetry 98 (units (unknown) date) 97 96 unknown) (unknown) (no (unknown) (unknown) Pulse Oximetry 99 (units (unknown) date) 07/12/22 16:10 unknown) (unknown) (no (unknown) (unknown) Pulse Oximetry 99 (units (unknown) date) unknown) (unknown) (no (unknown) (unknown) Pulse Rate 82 (units ( unknown) date) 07/12/22 16:10 unknown) (unknown) (no (unknown) (unknown) Pulse Rate 90 (units ( unknown) date) unknown) (unknown) (no (unknown) (unknown) Pulse Rate 94 H 92 (units (unknown) date) H 88 unknown) (unknown) (no (unknown) (unknown) Pulse Rate 97 H 87 (units (unknown) date) unknown) (unknown) (no (unknown) (unknown) Qualifiers: (units (un known) date) unknown) (unknown) (no (unknown) (unknown) Questions are (units ( unknown) date) addressed and there unknown) is agreement with the plan and for follow-up. (unknown) (no (unknown) (unknown) RBC (4.0-5.2) (units ( unknown) date) X106/uL unknown) (unknown) (no (unknown) (unknown) RBC 4.44 (4.0-5.2) (units (unknown) date) X106/uL unknown) (unknown) (no (unknown) (unknown) RDW (11.6-14.8) % (units (unknown) date) unknown) (unknown) (no (unknown) (unknown) RDW 17.3 H (units (unk nown) date) (11.6-14.8) % unknown) (unknown) (no (unknown) (unknown) RESULT SUMMARY: (units (unknown) date) unknown) (unknown) (no (unknown) (unknown) ROS Unobtainable: (units (unknown) date) All systems unknown) reviewed + are unremarkable except as noted in HPI (unknown) (no (unknown) (unknown) Referrals: (units (unk nown) date) unknown) (unknown) (no (unknown) (unknown) Related Data (units (u nknown) date) unknown) (unknown) (no (unknown) (unknown) Respiratory Rate (units (unknown) date) 14 07/12/22 16:10 unknown) (unknown) (no (unknown) (unknown) Respiratory Rate (units (unknown) date) 16 18 unknown) (unknown) (no (unknown) (unknown) Respiratory Rate (units (unknown) date) unknown) (unknown) (no (unknown) (unknown) Respiratory: (units (u nknown) date) normal effort, able unknown) to speak in complete sentences, without (unknown) (no (unknown) (unknown) Review of Systems (units (unknown) date) unknown) (unknown) (no (unknown) (unknown) Reviewed vitals (units (unknown) date) signs and nursing unknown) notes. (unknown) (no (unknown) (unknown) S/P myringotomy (units (unknown) date) with insertion of unknown) tube (unknown) (no (unknown) (unknown) SARS-CoV-2 (PCR) (units (unknown) date) (Negative) unknown) (unknown) (no (unknown) (unknown) SARS-CoV-2 (PCR) (units (unknown) date) Negative (Negative) unknown) (unknown) (no (unknown) (unknown) (spontaneous (units (unknown) date) vaginal delivery) unknown) (-09/05/18) (unknown) (no (unknown) (unknown) Salicylates < 1.0 (units (unknown) date) (<20) mg/dL unknown) (unknown) (no (unknown) (unknown) Salicylates (<20) (units (unknown) date) mg/dL unknown) (unknown) (no (unknown) (unknown) She was given a (units (unknown) date) couple water, a unknown) diet order was ordered however they may not (unknown) (no (unknown) (unknown) Signed By: (units (unk nown) date) unknown) (unknown) (no (unknown) (unknown) Skin: brisk (units (un known) date) capillary refill, unknown) without pallor or erythema (unknown) (no (unknown) (unknown) Smoker (units (unkno wn) date) unknown) (unknown) (no (unknown) (unknown) [place] and (units (unknown) date) [facility] in the unknown) past. She has been sober for a total of 18 (unknown) (no (unknown) (unknown) Smoking Status: (units (unknown) date) Former smoker unknown) (unknown) (no (unknown) (unknown) Social History (units (unknown) date) (Reviewed 07/12/22 unknown) @ 17:50 by Juliet Paz [facility]) (unknown) (no (unknown) (unknown) Social (units (unkno wn) date) considerations that unknown) may affect disposition: none (unknown) (no (unknown) (unknown) Sodium (137-145) (units (unknown) date) mmol/L unknown) (unknown) (no (unknown) (unknown) Sodium 140 (units (unk nown) date) (137-145) mmol/L unknown) (unknown) (no (unknown) (unknown) Sodium Chloride (units (unknown) date) (Normal Saline unknown) 0.9%) 1,000 mls @ 1,000 mls/hr IV BOLUS ONE (unknown) (no (unknown) (unknown) Source: patient (units (unknown) date) unknown) (unknown) (no (unknown) (unknown) Stated Complaint: (units (unknown) date) Stress/Depression unknown) (unknown) (no (unknown) (unknown) Stop: 07/12/22 (units (unknown) date) 17:33 unknown) (unknown) (no (unknown) (unknown) Stop: 07/12/22 (units (unknown) date) 17:45 unknown) (unknown) (no (unknown) (unknown) Stop: 07/12/22 (units (unknown) date) 18:28 unknown) (unknown) (no (unknown) (unknown) Stop: 07/12/22 (units (unknown) date) 18:31 unknown) (unknown) (no (unknown) (unknown) Stop: 07/12/22 (units (unknown) date) 19:25 unknown) (unknown) (no (unknown) (unknown) Stop: 07/12/22 (units (unknown) date) 20:03 unknown) (unknown) (no (unknown) (unknown) Stop: 07/12/22 (units (unknown) date) 20:17 unknown) (unknown) (no (unknown) (unknown) Substance Use (units ( unknown) date) Type: does not use unknown) (unknown) (no (unknown) (unknown) Surgical History (units (unknown) date) (Reviewed 07/12/22 unknown) @ 17:50 by LYUDMILA Do) (unknown) (no (unknown) (unknown) TSH (0.47-4.68) (units (unknown) date) uIU/mL unknown) (unknown) (no (unknown) (unknown) TSH 1.24 (units (unkno wn) date) (0.47-4.68) uIU/mL unknown) (unknown) (no (unknown) (unknown) Tactile (units (unkno wn) date) disturbances ?> 1 = unknown) Very mild itching, pin and needles, burning, or (unknown) (no (unknown) (unknown) Temperature 97.2 F (units (unknown) date) L 07/12/22 16:10 unknown) (unknown) (no (unknown) (unknown) Thiamine HCl (units (u nknown) date) (Thiamine 100 Mg unknown) Tablet) 100 mg PO NOW ONE (unknown) (no (unknown) (unknown) Thiamine HCl 200 (units (unknown) date) mg/ Sodium unknown) (Chloride) 102 mls @ 408 mls/hr IV NOW ONE (unknown) (no (unknown) (unknown) This is a (units (unkn own) date) 31-year-old female unknown) with history of alcohol abuse and appears to have (unknown) (no (unknown) (unknown) Time Seen by (units (u nknown) date) Provider: 07/12/22 unknown) 17:05 (unknown) (no (unknown) (unknown) Total Bilirubin (units (unknown) date) (0.2-1.3) mg/dL unknown) (unknown) (no (unknown) (unknown) Total Bilirubin (units (unknown) date) 0.4 (0.2-1.3) mg/dL unknown) (unknown) (no (unknown) (unknown) Total Protein (units ( unknown) date) (6.3-8.2) g/dL unknown) (unknown) (no (unknown) (unknown) Total Protein 7.3 (units (unknown) date) (6.3-8.2) g/dL unknown) (unknown) (no (unknown) (unknown) Tremor ?> 1 = Not (units (unknown) date) visible, but can be unknown) felt fingertip to fingertip (unknown) (no (unknown) (unknown) U Benzodiazepines (units (unknown) date) Scrn (Negative) unknown) (unknown) (no (unknown) (unknown) U Benzodiazepines (units (unknown) date) Scrn Negative unknown) (Negative) (unknown) (no (unknown) (unknown) U Marijuana (THC) (units (unknown) date) Screen (Negative) unknown) (unknown) (no (unknown) (unknown) U Marijuana (THC) (units (unknown) date) Screen Negative unknown) (Negative) (unknown) (no (unknown) (unknown) U Methamphetamines (units (unknown) date) Scrn (Negative) unknown) (unknown) (no (unknown) (unknown) U Methamphetamines (units (unknown) date) Scrn Negative unknown) (Negative) (unknown) (no (unknown) (unknown) U Opiates 300ng/mL (units (unknown) date) cut (Negative) unknown) (unknown) (no (unknown) (unknown) U Opiates 300ng/mL (units (unknown) date) cut Negative unknown) (Negative) (unknown) (no (unknown) (unknown) U Tricyclic (units (un known) date) Antidepress unknown) (Negative) (unknown) (no (unknown) (unknown) U Tricyclic (units (un known) date) Antidepress unknown) Negative (Negative) (unknown) (no (unknown) (unknown) Ur Amphetamines (units (unknown) date) Screen (Negative) unknown) (unknown) (no (unknown) (unknown) Ur Amphetamines (units (unknown) date) Screen Negative unknown) (Negative) (unknown) (no (unknown) (unknown) Ur Barbiturates (units (unknown) date) Screen (Negative) unknown) (unknown) (no (unknown) (unknown) Ur Barbiturates (units (unknown) date) Screen Negative unknown) (Negative) (unknown) (no (unknown) (unknown) Ur Culture (units (unk nown) date) Indicated? Specimen unknown) cultured (unknown) (no (unknown) (unknown) Ur Culture (units (unk nown) date) Indicated? unknown) (unknown) (no (unknown) (unknown) Ur MDMA Scrn (units (u nknown) date) (Ecstasy) unknown) (Negative) (unknown) (no (unknown) (unknown) Ur MDMA Scrn (units (u nknown) date) (Ecstasy) Negative unknown) (Negative) (unknown) (no (unknown) (unknown) Ur Oxycodone (units (u nknown) date) Screen (Negative) unknown) (unknown) (no (unknown) (unknown) Ur Oxycodone (units (u nknown) date) Screen Negative unknown) (Negative) (unknown) (no (unknown) (unknown) Ur Phencyclidine (units (unknown) date) Scrn (Negative) unknown) (unknown) (no (unknown) (unknown) Ur Phencyclidine (units (unknown) date) Scrn Negative unknown) (Negative) (unknown) (no (unknown) (unknown) Ur Squamous Epith (units (unknown) date) Cells (0-5/HPF) unknown) (unknown) (no (unknown) (unknown) Ur Squamous Epith (units (unknown) date) Cells 1-5 /hpf unknown) (0-5/HPF) (unknown) (no (unknown) (unknown) Urine Bacteria (units (unknown) date) (None) unknown) (unknown) (no (unknown) (unknown) Urine Bacteria (units (unknown) date) Many (>30) H (None) unknown) (unknown) (no (unknown) (unknown) Urine Cocaine (units ( unknown) date) Screen (Negative) unknown) (unknown) (no (unknown) (unknown) Urine Cocaine (units ( unknown) date) Screen Negative unknown) (Negative) (unknown) (no (unknown) (unknown) Urine Dip (units (unkn own) date) unknown) (unknown) (no (unknown) (unknown) Urine Methadone (units (unknown) date) Screen (Negative) unknown) (unknown) (no (unknown) (unknown) Urine Methadone (units (unknown) date) Screen Negative unknown) (Negative) (unknown) (no (unknown) (unknown) Urine RBC (units (unkn own) date) (0-5/HPF) unknown) (unknown) (no (unknown) (unknown) Urine RBC 1-5/hpf (units (unknown) date) (0-5/HPF) unknown) (unknown) (no (unknown) (unknown) Urine Specific (units (unknown) date) [place] 1.015 unknown) (unknown) (no (unknown) (unknown) Urine WBC (units (unkn own) date) (0-5/HPF) unknown) (unknown) (no (unknown) (unknown) Urine WBC 1-5/hpf (units (unknown) date) (0-5/HPF) unknown) (unknown) (no (unknown) (unknown) Urine microscopy (units (unknown) date) with many bacteria, unknown) pending for culture, will treat for acute (unknown) (no (unknown) (unknown) Visual (units (unkno wn) date) disturbances ?> 1 = unknown) Very mild sensitivity (unknown) (no (unknown) (unknown) Vital Signs - 8 hr (units (unknown) date) unknown) (unknown) (no (unknown) (unknown) Vital Signs (units (un known) date) unknown) (unknown) (no (unknown) (unknown) Vital signs: (units (u nknown) date) unknown) (unknown) (no (unknown) (unknown) WBC (4.5-11.0) (units (unknown) date) X103/uL unknown) (unknown) (no (unknown) (unknown) WBC 3.3 L (units (unkn own) date) (4.5-11.0) X103/uL unknown) (unknown) (no (unknown) (unknown) [1900] ([place]) (units (unknown) date) Patient received in unknown) sign out [employer]. I have reviewed the (unknown) (no (unknown) (unknown) [Embedded Image (units (unknown) date) Not Available] unknown) (unknown) (no (unknown) (unknown) [METOCLOPRAMIDE] (units (unknown) date) unknown) (unknown) (no (unknown) (unknown) acceptable. She is (units (unknown) date) nauseated, without unknown) vomiting, received Zofran previously and (unknown) (no (unknown) (unknown) acetaminophen 325 (units (unknown) date) mg tablet 325 mg PO unknown) Q6H PRN pain #20 tabs 02/05/20 (unknown) (no (unknown) (unknown) acetaminophen (units ( unknown) date) [Tylenol] 325 mg unknown) tablet (unknown) (no (unknown) (unknown) alcohol in 300s, (units (unknown) date) she was last here unknown) in the emergency department in May of (unknown) (no (unknown) (unknown) alcohol intake (units (unknown) date) frequency: 3 or unknown) more drinks per day (unknown) (no (unknown) (unknown) alcohol intake: (units (unknown) date) former unknown) (unknown) (no (unknown) (unknown) alcohol level (units ( unknown) date) below 0.08 to be unknown) considered for placement there. (unknown) (no (unknown) (unknown) and below (units (unkn own) date) unknown) (unknown) (no (unknown) (unknown) and she drinking (units (unknown) date) daily since this unknown) happened. She wants rehab. She has been (unknown) (no (unknown) (unknown) anxious, (units (unkno wn) date) intoxicated and now unknown) withdrawing. pleasant and cooperative (unknown) (no (unknown) (unknown) are currently no (units (unknown) date) available beds. unknown) Patient resting comfortably (unknown) (no (unknown) (unknown) arrhythmia, or (units (unknown) date) acute ischemic unknown) changes. (unknown) (no (unknown) (unknown) at extension and (units (unknown) date) states that she unknown) feels symptoms of alcohol withdrawal. Denies (unknown) (no (unknown) (unknown) being depressed at (units (unknown) date) this time, CIWA is unknown) an 8. (unknown) (no (unknown) (unknown) bpm with rightward (units (unknown) date) axis and normal unknown) intervals. No STEMI, ST segment changes, (unknown) (no (unknown) (unknown) clinical course (units (unknown) date) and performed an unknown) independent history and physical exam. Patient (unknown) (no (unknown) (unknown) current (units (unkno wn) date) occupational unknown) exposures/hazards: Yes (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 with Pandemic ) (unknown) (no (unknown) (unknown) cystitis without (units (unknown) date) hematuria unknown) (unknown) (no (unknown) (unknown) cystitis (units (unkno wn) date) unknown) (unknown) (no (unknown) (unknown) cystitis, she is (units (unknown) date) p.o. tolerant, unknown) still pending lab work (unknown) (no (unknown) (unknown) deliver since it (units (unknown) date) is after 17:00 and unknown) the diet order was ordered at 17:30. Samira (unknown) (no (unknown) (unknown) detox 11 times, (units (unknown) date) states that it has unknown) taking Antabuse, Librium, Ativan, she denies (unknown) (no (unknown) (unknown) detox as well. (units (unknown) date) unknown) (unknown) (no (unknown) (unknown) diarrhea or (units (un known) date) current stool unknown) changes. (unknown) (no (unknown) (unknown) diphenhydramine (units (unknown) [...] mg unknown) capsule (unknown) (no (unknown) (unknown) draw her labs (units ( unknown) date) unknown) (unknown) (no (unknown) (unknown) education level: (units (unknown) date) college unknown) (unknown) (no (unknown) (unknown) electrolyte (units (un known) date) abnormalities. unknown) (unknown) (no (unknown) (unknown) emergency (units (unkn own) date) department on unknown) 06/18/2022 and a few days prior to that with a blood (unknown) (no (unknown) (unknown) extremities (units (un known) date) unknown) (unknown) (no (unknown) (unknown) renee/zoroastrianism: (units (unknown) date) Buddhist unknown) (unknown) (no (unknown) (unknown) fidgeting (units (unkn own) date) unknown) (unknown) (no (unknown) (unknown) fluid, EtOH, and (units (unknown) date) CIWA, ordered 2 mg unknown) of IV lorazepam for patient's symptoms, (unknown) (no (unknown) (unknown) for alcohol (units (un known) date) related complaints unknown) through 2019, and she presented to the [facility] (unknown) (no (unknown) (unknown) from social work (units (unknown) date) is aware and unknown) pending her lab work to arrange for inpatient (unknown) (no (unknown) (unknown) go to detox. She (units (unknown) date) is currently unknown) intoxicated endorses symptoms of alcohol (unknown) (no (unknown) (unknown) her urine (units (unkn own) date) microscopy came unknown) back positive for many bacteria, will treat for acute (unknown) (no (unknown) (unknown) household members: (units (unknown) date) spouse and children unknown) (unknown) (no (unknown) (unknown) hydrated. (units (unkn own) date) unknown) (unknown) (no (unknown) (unknown) hydrocodone (units (un known) date) [HYDROCODONE] unknown) AdvReac Unknown VOMITING Verified 07/12/22 16:18 (unknown) (no (unknown) (unknown) ibuprofen 600 mg (units (unknown) date) Tablet unknown) (unknown) (no (unknown) (unknown) ibuprofen 600 mg (units (unknown) date) tablet 600 mg PO unknown) Q6HR PRN Pain, Mild 07/04/20 (unknown) (no (unknown) (unknown) intoxicated, (units (u nknown) date) pleasant, unknown) interactive and comfortable although active, anxious and (unknown) (no (unknown) (unknown) is 338, COVID PCR (units (unknown) date) was negative, drug unknown) screen is negative for all tested agents, (unknown) (no (unknown) (unknown) is allergic to (units ( unknown) date) Reglan, will dose unknown) with another 5 mg of Zofran, no QT prolongation (unknown) (no (unknown) (unknown) knowing if she is (units (unknown) date) had phenobarbital unknown) in the past. (unknown) (no (unknown) (unknown) limited history (units (unknown) date) currently due to unknown) intoxication. She states that she is recently (unknown) (no (unknown) (unknown) lorazepam at 2 mg (units (unknown) date) for this. unknown) (unknown) (no (unknown) (unknown) marital status: (units (unknown) date) unknown) (unknown) (no (unknown) (unknown) metoclopramide (units (unknown) date) Allergy Mild unknown) RASH/HIVES Verified 07/12/22 16:18 (unknown) (no (unknown) (unknown) mild anemia but (units (unknown) date) improved from her unknown) prior with H+H of 11.5 and 35.3, no evidence (unknown) (no (unknown) (unknown) months. She denies (units (unknown) date) any recent unknown) injuries, denies chance of , denies any (unknown) (no (unknown) (unknown) nausea vomiting or (units (unknown) date) abdominal pain at unknown) this time. 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 (units (u nknown) date) Ativan for her unknown) symptoms and ask our into call lab to come up and (unknown) (no (unknown) (unknown) other ingestions, (units (unknown) date) is pleasant, unknown) seeking help with her intoxication and wishes to (unknown) (no (unknown) (unknown) patient's (units (unknown) date) is at the bedside unknown) offering support, she raises nausea, another (unknown) (no (unknown) (unknown) prenat.vits,otis,mi (units (unknown) date) [id number] 1 tab unknown) PO DAILY 12/30/19 07/03/20 (unknown) (no (unknown) (unknown) prenat.vits,otis,mi (units (unknown) date) [id number] Tablet unknown) (unknown) (no (unknown) (unknown) relapsed due to a (units (unknown) date) divorce with her unknown) . She used to be a frequent visitor (unknown) (no (unknown) (unknown) resting (units (unkno wn) date) comfortably, unknown) [facility] ([facility]) (no (unknown) (unknown) scores of 10 or (units (unknown) date) less by 4 unknown) hours a piece and must also have blood (unknown) (no (unknown) (unknown) second hand (units (un known) date) exposure: No unknown) (growing up as a child - not currently) (unknown) (no (unknown) (unknown) significant tremor (units (unknown) date) or tongue unknown) fasciculation, she has a mild tremor with her arms (unknown) (no (unknown) (unknown) social work and (units (unknown) date) orders are pending unknown) (unknown) (no (unknown) (unknown) special renee (units ( unknown) date) needs: No unknown) (unknown) (no (unknown) (unknown) substance abuse, (units (unknown) date) alcohol unknown) intoxication, psychosis, mood disorder, depression (unknown) (no (unknown) (unknown) substance use (units ( unknown) date) type: does not use unknown) (unknown) (no (unknown) (unknown) tablet vomiting (units (unknown) date) #14 tabs unknown) (unknown) (no (unknown) (unknown) tablet vomiting (units (unknown) date) #20 tabs unknown) (unknown) (no (unknown) (unknown) tablet vomiting (units (unknown) date) #30 tabs unknown) (unknown) (no (unknown) (unknown) tenderness or (units ( unknown) date) exquisite unknown) tenderness with exam. (unknown) (no (unknown) (unknown) that she drinks (units (unknown) date) vodka and admits to unknown) drinking heavily today, states that she took (unknown) (no (unknown) (unknown) the bottle upside (units (unknown) date) down and started unknown) checking from it. She states that she drank (unknown) (no (unknown) (unknown) thyroid studies (units (unknown) date) are still pending. unknown) No significant findings to her CMP. No (unknown) (no (unknown) (unknown) tramadol 50 mg (units (unknown) date) tablet 50 mg PO Q6H unknown) PRN pain #10 tabs 06/12/22 (unknown) (no (unknown) (unknown) tramadol 50 mg (units (unknown) date) tablet unknown) (unknown) (no (unknown) (unknown) tremors, no (units (un known) date) tachycardia, her unknown) CIWA is currently 10, ordered another p.o. dose of (unknown) (no (unknown) (unknown) urgency or flank (units (unknown) date) pain, endorses unknown) nausea without vomiting. Patient has been to (unknown) (no (unknown) (unknown) well as prior (units ( unknown) date) records if unknown) available. (unknown) (no (unknown) (unknown) wheezing, stridor, (units (unknown) date) or abnormal breath unknown) sounds. No retractions or tachypnea. (unknown) (no (unknown) (unknown) withdrawal. (units (un known) date) Patient states that unknown) she takes Seroquel 300 mg at night as well as Result panel [id number] (unknown) (no (unknown) (unknown) (no value) (units (unk nown) date) unknown) (unknown) (no (unknown) (unknown) <Juliet Paz (units (unknown) date) LYUDMILA - Last Filed: unknown) 07/12/22 20:27> (unknown) (no (unknown) (unknown) <Reinaldo Arthur DO (units (unknown) date) - Last Filed: unknown) 07/13/22 05:30> (unknown) (no (unknown) (unknown) (1-3) #30 tabs (units (unknown) date) unknown) (unknown) (no (unknown) (unknown) (Benadryl) caps (units (unknown) date) unknown) (unknown) (no (unknown) (unknown) (Colace) (units (unkno wn) date) unknown) (unknown) (no (unknown) (unknown) (Tylenol) (units (unkn own) date) unknown) (unknown) (no (unknown) (unknown) [id number] (units (unkn own) date) unknown) (unknown) (no (unknown) (unknown) 01:28 07/13/22 (units (unknown) date) unknown) (unknown) (no (unknown) (unknown) 01:50 (units (unkno wn) date) unknown) (unknown) (no (unknown) (unknown) 02:00 07/13/22 (units (unknown) date) unknown) (unknown) (no (unknown) (unknown) 02:14 07/13/22 (units (unknown) date) unknown) (unknown) (no (unknown) (unknown) 02:14 (units (unkno wn) date) unknown) (unknown) (no (unknown) (unknown) 02:30 (units (unkno wn) date) unknown) (unknown) (no (unknown) (unknown) 07/12/22 07/12/22 (units (unknown) date) 07/12/22 unknown) Range/Units (unknown) (no (unknown) (unknown) 07/12/22 19:15 (units (unknown) date) unknown) (unknown) (no (unknown) (unknown) 07/12/22 (units (unkno wn) date) unknown) (unknown) (no (unknown) (unknown) 07/13/22 (units (unkno wn) date) unknown) (unknown) (no (unknown) (unknown) 0530 -patient (units (u nknown) date) beginning to feel a unknown) bit agitated and restless, she is tachycardic. (unknown) (no (unknown) (unknown) 1 tab PO DAILY (units (unknown) date) unknown) (unknown) (no (unknown) (unknown) 100 mg PO BID Qty: (units (unknown) date) 30 0RF unknown) (unknown) (no (unknown) (unknown) 16:32 16:32 16:32 (units (unknown) date) unknown) (unknown) (no (unknown) (unknown) 1836 patient still (units (unknown) date) does not have an unknown) IV, has not received any IV fluid her (unknown) (no (unknown) (unknown) 1900 still no IV, (units (unknown) date) patient is p.o. unknown) challenging, she received her p.o. lorazepam, (unknown) (no (unknown) (unknown) 1929, patient now (units (unknown) date) feels depressed, unknown) she is lying in bed, feeling bad, has (unknown) (no (unknown) (unknown) 19:15 19:15 19:15 (units (unknown) date) unknown) (unknown) (no (unknown) (unknown) 1999 patient is (units (unknown) date) feeling better now, unknown) her lab work is starting to return and ETOH (unknown) (no (unknown) (unknown) 2002 patient (units (u nknown) date) requests to take unknown) her home dosing of Seroquel 300 mg, this is (unknown) (no (unknown) (unknown) 2022 with similar (units (unknown) date) symptoms. She comes unknown) in complaining of needing help, states (unknown) (no (unknown) (unknown) 2200 -smoker point (units (unknown) date) called back and unknown) states that patient must have free CIWA (unknown) (no (unknown) (unknown) 23:30 07/13/22 (units (unknown) date) unknown) (unknown) (no (unknown) (unknown) 25 mg PO BEDTIME (units (unknown) date) PRN (Reason: unknown) insomnia) Qty: 20 0RF (unknown) (no (unknown) (unknown) 325 mg PO Q6H PRN (units (unknown) date) (Reason: pain) Qty: unknown) 20 0RF (unknown) (no (unknown) (unknown) 4 Zofran was (units (u nknown) date) ordered. So has not unknown) been given, patient is signed out to (unknown) (no (unknown) (unknown) 4 mg PO [...] Qty: 30 0RF (unknown) (no (unknown) (unknown) 750 mL of time. (units (unknown) date) She just she has unknown) nothing to do but relapsed. This 3 weeks ago (unknown) (no (unknown) (unknown) 9 points (units (unkno wn) date) unknown) (unknown) (no (unknown) (unknown) ALT (<35) IU/L (units (unknown) date) unknown) (unknown) (no (unknown) (unknown) ALT 21 (<35) IU/L (units (unknown) date) unknown) (unknown) (no (unknown) (unknown) AST (14-36) IU/L (units (unknown) date) unknown) (unknown) (no (unknown) (unknown) AST 67 H (14-36) (units (unknown) date) IU/L unknown) (unknown) (no (unknown) (unknown) Acetaminophen < 10 (units (unknown) date) (10-30) ug/mL unknown) (unknown) (no (unknown) (unknown) Acetaminophen (units ( unknown) date) (10-30) ug/mL unknown) (unknown) (no (unknown) (unknown) Acute cystitis (units (unknown) date) unknown) (unknown) (no (unknown) (unknown) Admin: 07/12/22 (units (unknown) date) 19:47 Dose: 500 mg unknown) (unknown) (no (unknown) (unknown) Age/Sex: 31 / F (units (unknown) date) unknown) (unknown) (no (unknown) (unknown) Agitation ?> 2 = (units (unknown) date) (More severe unknown) symptoms) (unknown) (no (unknown) (unknown) Albumin (3.5-5.0) (units (unknown) date) g/dL unknown) (unknown) (no (unknown) (unknown) Albumin 4.3 (units (un known) date) (3.5-5.0) g/dL unknown) (unknown) (no (unknown) (unknown) Albumin/Globulin (units (unknown) date) Ratio (1.0-2.8) unknown) (unknown) (no (unknown) (unknown) Albumin/Globulin (units (unknown) date) Ratio 1.4 (1.0-2.8) unknown) (unknown) (no (unknown) (unknown) Alcohol use (units (un known) date) disorder unknown) (unknown) (no (unknown) (unknown) Alcoholism (units (unk nown) date) unknown) (unknown) (no (unknown) (unknown) Alkaline (units (unkno wn) date) Phosphatase unknown) (38-126) U/L (unknown) (no (unknown) (unknown) Alkaline (units (unkno wn) date) Phosphatase 98 unknown) (38-126) U/L (unknown) (no (unknown) (unknown) Allergies (units (unkn own) date) unknown) (unknown) (no (unknown) (unknown) Allergy/AdvReac (units (unknown) date) Type Severity unknown) Reaction Status Date / Time (unknown) (no (unknown) (unknown) Anemia (-2018) (units (unknown) date) unknown) (unknown) (no (unknown) (unknown) Anxiety ?> 2 = (units (unknown) date) (More severe unknown) symptoms) (unknown) (no (unknown) (unknown) Auditory (units (unkno wn) date) disturbances ?> 1 = unknown) Very mild harshness or ability to frighten (unknown) (no (unknown) (unknown) BUN (7-17) mg/dL (units (unknown) date) unknown) (unknown) (no (unknown) (unknown) BUN 9 (7-17) mg/dL (units (unknown) date) unknown) (unknown) (no (unknown) (unknown) BUN/Creatinine (units (unknown) date) Ratio (6-22) unknown) (unknown) (no (unknown) (unknown) BUN/Creatinine (units (unknown) date) Ratio 11.0 (6-22) unknown) (unknown) (no (unknown) (unknown) Baso # (Auto) (units ( unknown) date) (0-100) /uL unknown) (unknown) (no (unknown) (unknown) Baso # (Auto) 0 (units (unknown) date) (0-100) /uL unknown) (unknown) (no (unknown) (unknown) Baso % (Auto) (units ( unknown) date) (0-2) % unknown) (unknown) (no (unknown) (unknown) Baso % (Auto) 0.9 (units (unknown) date) (0-2) % unknown) (unknown) (no (unknown) (unknown) Bedside Urine (units ( unknown) date) Bilirubin - unknown) Negative (unknown) (no (unknown) (unknown) Bedside Urine (units ( unknown) date) Glucose Negative unknown) (unknown) (no (unknown) (unknown) Bedside Urine (units ( unknown) date) Ketone - Negative unknown) (unknown) (no (unknown) (unknown) Bedside Urine (units ( unknown) date) Leukocytes - unknown) Negative (unknown) (no (unknown) (unknown) Bedside Urine (units ( unknown) date) Nitrite + Positive unknown) (unknown) (no (unknown) (unknown) Bedside Urine (units ( unknown) date) Occult Blood - unknown) Negative (unknown) (no (unknown) (unknown) Bedside Urine (units ( unknown) date) Protein - Negative unknown) (unknown) (no (unknown) (unknown) Bedside Urine (units ( unknown) date) Urobilinogen - unknown) Negative (unknown) (no (unknown) (unknown) Bedside Urine pH (units (unknown) date) 6.0 unknown) (unknown) (no (unknown) (unknown) Blood Pressure (units (unknown) date) 102/59 L unknown) (unknown) (no (unknown) (unknown) Blood Pressure (units (unknown) date) 112/62 07/12/22 unknown) 16:10 (unknown) (no (unknown) (unknown) Blood Pressure (units (unknown) date) 99/58 L unknown) (unknown) (no (unknown) (unknown) Blood Pressure (units (unknown) date) [Left Arm] 95/53 L unknown) (unknown) (no (unknown) (unknown) Blood Pressure (units (unknown) date) [Left Arm] unknown) (unknown) (no (unknown) (unknown) Blood Pressure (units (unknown) date) unknown) (unknown) (no (unknown) (unknown) CIWA is now worse (units (unknown) date) and she has unknown) tremors, anxiety is worsening and agitation, (unknown) (no (unknown) (unknown) CIWA-Ar for (units (un known) date) Alcohol Withdrawal unknown) from [facility] on 07/12/2022 (unknown) (no (unknown) (unknown) Calcium (8.4-10.2) (units (unknown) date) mg/dL unknown) (unknown) (no (unknown) (unknown) Calcium 8.0 L (units ( unknown) date) (8.4-10.2) mg/dL unknown) (unknown) (no (unknown) (unknown) Carbon Dioxide (units (unknown) date) (22-32) mmol/L unknown) (unknown) (no (unknown) (unknown) Carbon Dioxide 23 (units (unknown) date) (22-32) mmol/L unknown) (unknown) (no (unknown) (unknown) Cardiovascular: (units (unknown) date) Tachycardic rate unknown) and rhythm, no peripheral edema, warm (unknown) (no (unknown) (unknown) Cephalexin HCl (units (unknown) date) (Cephalexin 250 Mg unknown) Capsule) 500 mg PO Q6H SANDY (unknown) (no (unknown) (unknown) Chief Complaint: (units (unknown) date) Alcohol unknown) intoxication, seeking detox (unknown) (no (unknown) (unknown) Chief Complaint: (units (unknown) date) Toxicology Problem unknown) (unknown) (no (unknown) (unknown) Chloride (98-107) (units (unknown) date) mmol/L unknown) (unknown) (no (unknown) (unknown) Chloride 104 (units (u nknown) date) (98-107) mmol/L unknown) (unknown) (no (unknown) (unknown) Clinical (units (unkno wn) date) Impression: unknown) (unknown) (no (unknown) (unknown) Clinical decision (units (unknown) date) rules or scores unknown) evaluated: CIWA of 9 at 1753 (unknown) (no (unknown) (unknown) Course of care: (units (unknown) date) Patient is a unknown) difficult IV stick, ordered IV with lab work, (unknown) (no (unknown) (unknown) Course (units (unkno wn) date) unknown) (unknown) (no (unknown) (unknown) Creatinine (units (unk nown) date) (0.52-1.04) mg/dL unknown) (unknown) (no (unknown) (unknown) Creatinine 0.82 (units (unknown) date) (0.52-1.04) mg/dL unknown) (unknown) (no (unknown) (unknown) Samantha Arthur gave her (units (unknown) date) grilled cheese, unknown) soup, some juice and encouraged her to stay (unknown) (no (unknown) (unknown) : 1990 (units (unknown) date) Acct:[id number] unknown) (unknown) (no (unknown) (unknown) Date of Service: (units (unknown) date) 07/12/22 unknown) (unknown) (no (unknown) (unknown) Departure (units (unkn own) date) unknown) (unknown) (no (unknown) (unknown) Differential (units (u nknown) date) diagnoses include unknown) but are not limited to: Alcohol withdrawal, (unknown) (no (unknown) (unknown) Discharge Plan (units (unknown) date) unknown) (unknown) (no (unknown) (unknown) Discontinued (units (u nknown) date) Medications unknown) (unknown) (no (unknown) (unknown) Documented By: AP (units (unknown) date) unknown) (unknown) (no (unknown) (unknown) Documented By: KB (units (unknown) date) unknown) (unknown) (no (unknown) (unknown) Documented By: OW (units (unknown) date) unknown) (unknown) (no (unknown) (unknown) ECG Data (units (unkno wn) date) unknown) (unknown) (no (unknown) (unknown) EKG independently (units (unknown) date) reviewed by myself unknown) at 1830 reveals normal sinus rhythm at 72 (unknown) (no (unknown) (unknown) ER Physician: (units ( unknown) date) Reinaldo Arthur D.O. unknown) (unknown) (no (unknown) (unknown) Emergency Report (units (unknown) date) unknown) (unknown) (no (unknown) (unknown) Eos # (Auto) (units (u nknown) date) (0-450) /uL unknown) (unknown) (no (unknown) (unknown) Eos # (Auto) 0 (units (unknown) date) (0-450) /uL unknown) (unknown) (no (unknown) (unknown) Eos % (Auto) (2-4) (units (unknown) date) % unknown) (unknown) (no (unknown) (unknown) Eos % (Auto) 0.3 L (units (unknown) date) (2-4) % unknown) (unknown) (no (unknown) (unknown) Esterase (units (unkno wn) date) unknown) (unknown) (no (unknown) (unknown) Estimated GFR > 60 (units (unknown) date) (>60) mL/min unknown) (unknown) (no (unknown) (unknown) Estimated GFR (units ( unknown) date) (>60) mL/min unknown) (unknown) (no (unknown) (unknown) Ethyl Alcohol ( - (units (unknown) date) 10) mg/dL unknown) (unknown) (no (unknown) (unknown) Ethyl Alcohol 338 (units (unknown) date) H ( - 10) mg/dL unknown) (unknown) (no (unknown) (unknown) Exam Narrative: (units (unknown) date) unknown) (unknown) (no (unknown) (unknown) Exam (units (unkno wn) date) unknown) (unknown) (no (unknown) (unknown) Family History (units (unknown) date) (Reviewed 07/12/22 unknown) @ 17:50 by LYUDMILA Do) (unknown) (no (unknown) (unknown) Family/Other (units (u nknown) date) Alcoholism unknown) (unknown) (no (unknown) (unknown) Family/Other (units (u nknown) date) Diabetes mellitus unknown) (unknown) (no (unknown) (unknown) Father Alcoholism (units (unknown) date) unknown) (unknown) (no (unknown) (unknown) Tonia Schneider MD (units (unknown) date) [Primary Care unknown) Provider] (unknown) (no (unknown) (unknown) Folic Acid (Folic (units (unknown) date) Acid 1 Mg Tablet) 1 unknown) mg PO DAILY SANDY (unknown) (no (unknown) (unknown) Free T4 (units (o wn) date) (0.78-2.19) ng/dL unknown) (unknown) (no (unknown) (unknown) Free T4 0.93 (units (u nknown) date) (0.78-2.19) ng/dL unknown) (unknown) (no (unknown) (unknown) GI: abdomen soft, (units (unknown) date) nontender to unknown) palpation, nondistended, without masses, rebound (unknown) (no (unknown) (unknown) General (units (unkno wn) date) unknown) (unknown) (no (unknown) (unknown) General: (units (unkno wn) date) cooperative, unknown) comfortable, in no acute distress, well groomed, appears (unknown) (no (unknown) (unknown) Globulin (1.7-4.1) (units (unknown) date) g/dL unknown) (unknown) (no (unknown) (unknown) Globulin 3.0 (units (u nknown) date) (1.7-4.1) g/dL unknown) (unknown) (no (unknown) (unknown) Glucose (70-100) (units (unknown) date) mg/dL unknown) (unknown) (no (unknown) (unknown) Glucose 111 H (units ( unknown) date) (70-100) mg/dL [...] extraction () unknown) (unknown) (no (unknown) (unknown) HEENT: symmetrical (units (unknown) date) facial expressions, unknown) dry mucous membranes (unknown) (no (unknown) (unknown) HPI - Alcohol (units ( unknown) date) unknown) (unknown) (no (unknown) (unknown) HPI narrative: (units (unknown) date) unknown) (unknown) (no (unknown) (unknown) Hct (36-46) % (units ( unknown) date) unknown) (unknown) (no (unknown) (unknown) Hct 35.3 L (36-46) (units (unknown) date) % unknown) (unknown) (no (unknown) (unknown) Headache/fullness (units (unknown) date) in head ?> 1 = Very unknown) mild (unknown) (no (unknown) (unknown) Hematuria (units (unkn own) date) presence: without unknown) hematuria Qualified Code(s): N30.00 - Acute (unknown) (no (unknown) (unknown) Hgb (12.0-16.0) (units (unknown) date) g/dL unknown) (unknown) (no (unknown) (unknown) Hgb 11.5 L (units (unk nown) date) (12.0-16.0) g/dL unknown) (unknown) (no (unknown) (unknown) History of Present (units (unknown) date) Illness unknown) (unknown) (no (unknown) (unknown) Home Medications (units (unknown) date) unknown) (unknown) (no (unknown) (unknown) I have (units (unkno wn) date) independently unknown) reviewed the patient's vital signs and nursing notes as (unknown) (no (unknown) (unknown) INPUTS: (units (unkno wn) date) unknown) (unknown) (no (unknown) (unknown) Independent (units (un known) date) historian: Patient unknown) (unknown) (no (unknown) (unknown) Initial Vital (units ( unknown) date) Signs unknown) (unknown) (no (unknown) (unknown) Initial Vital (units ( unknown) date) Signs: unknown) (unknown) (no (unknown) (unknown) Insomnia (units (unkno wn) date) unknown) (unknown) (no (unknown) (unknown) Interpretation: (units (unknown) date) unknown) (unknown) (no (unknown) (unknown) [facility] (units (unknown) date) [address] unknown) [place] [address] (unknown) (no (unknown) (unknown) Lab Data (units (unkno wn) date) unknown) (unknown) (no (unknown) (unknown) Lab Results (units (un known) date) unknown) (unknown) (no (unknown) (unknown) Labs: (units (unkno wn) date) unknown) (unknown) (no (unknown) (unknown) Last Admin: (units (un known) date) 07/12/22 18:39 unknown) Dose: 4 mg (unknown) (no (unknown) (unknown) Last Admin: (units (un known) date) 07/12/22 18:40 unknown) Dose: 1 mg (unknown) (no (unknown) (unknown) Last Admin: (units (un known) date) 07/12/22 18:56 unknown) Dose: Not Given (unknown) (no (unknown) (unknown) Last Admin: (units (un known) date) 07/12/22 19:48 unknown) Dose: 2 mg (unknown) (no (unknown) (unknown) Last Admin: (units (un known) date) 07/12/22 19:49 unknown) Dose: 100 mg (unknown) (no (unknown) (unknown) Last Admin: (units (un known) date) 07/13/22 02:11 unknown) Dose: 500 mg (unknown) (no (unknown) (unknown) Last Admin: (units (un known) date) 07/13/22 03:36 unknown) Dose: 2 mg (unknown) (no (unknown) (unknown) Librium but she (units (unknown) date) does not have this unknown) medicine with her, she only has the Seroquel. (unknown) (no (unknown) (unknown) Lorazepam (units (unkn own) date) (Lorazepam 0.5 Mg unknown) Tablet) 1 mg PO NOW ONE (unknown) (no (unknown) (unknown) Lorazepam (units (unkn own) date) (Lorazepam 0.5 Mg unknown) Tablet) 2 mg PO NOW ONE (unknown) (no (unknown) (unknown) Lorazepam (units (unkn own) date) (Lorazepam 2 Mg/Ml unknown) Inj) 2 mg IV NOW ONE (unknown) (no (unknown) (unknown) Lymph # (Auto) (units (unknown) date) (5542-3886) /uL unknown) (unknown) (no (unknown) (unknown) Lymph # (Auto) (units (unknown) date) 1700 ([id number]) unknown) /uL (unknown) (no (unknown) (unknown) Lymph % (Auto) (units (unknown) date) (25-40) % unknown) (unknown) (no (unknown) (unknown) Lymph % (Auto) (units (unknown) date) 50.6 H (25-40) % unknown) (unknown) (no (unknown) (unknown) MCH (26-34) PG (units (unknown) date) unknown) (unknown) (no (unknown) (unknown) MCH 26.0 (26-34) (units (unknown) date) PG unknown) (unknown) (no (unknown) (unknown) MCHC (30-36) % (units (unknown) date) unknown) (unknown) (no (unknown) (unknown) MCHC 32.7 (30-36) (units (unknown) date) % unknown) (unknown) (no (unknown) (unknown) MCV (80-100) fL (units (unknown) date) unknown) (unknown) (no (unknown) (unknown) MCV 79.5 L (units (unk nown) date) (80-100) fL unknown) (unknown) (no (unknown) (unknown) MDM - Alcohol (units ( unknown) date) unknown) (unknown) (no (unknown) (unknown) MDM Narrative (units ( unknown) date) unknown) (unknown) (no (unknown) (unknown) MIPS: This (units (unk nown) date) encounter doesn't unknown) have any diagnosis' associated with MIPS criteria. (unknown) (no (unknown) (unknown) MSK: moves all (units (unknown) date) extremities, unknown) neurovascularly intact, no weakness, normal tone no (unknown) (no (unknown) (unknown) Medical History (units (unknown) date) (Reviewed 07/12/22 unknown) @ 17:50 by Juliet Paz [facility]) (unknown) (no (unknown) (unknown) Medical decision (units (unknown) date) making narrative: unknown) (unknown) (no (unknown) (unknown) Medication (units (unk nown) date) Instructions unknown) Recorded Confirmed (unknown) (no (unknown) (unknown) Medication (units (unk nown) date) Instructions unknown) Recorded (unknown) (no (unknown) (unknown) Menometrorrhagia (units (unknown) date) unknown) (unknown) (no (unknown) (unknown) Mode of arrival: (units (unknown) date) Ambulatory unknown) (unknown) (no (unknown) (unknown) Yates # (Auto) (units ( unknown) date) (0-900) /uL unknown) (unknown) (no (unknown) (unknown) Yates # (Auto) 100 (units (unknown) date) (0-900) /uL unknown) (unknown) (no (unknown) (unknown) Yates % (Auto) (units ( unknown) date) (3-14) % unknown) (unknown) (no (unknown) (unknown) Yates % (Auto) 2.7 (units (unknown) date) L (3-14) % unknown) (unknown) (no (unknown) (unknown) Mother Diabetes (units (unknown) date) mellitus unknown) (unknown) (no (unknown) (unknown) Narrative (units (unkn own) date) unknown) (unknown) (no (unknown) (unknown) Nausea/vomiting ?> (units (unknown) date) 0 = No nausea and unknown) no vomiting (unknown) (no (unknown) (unknown) Neuro: normal (units ( unknown) date) speech and unknown) cognition, A+O x3, ambulatory, clear speech (unknown) (no (unknown) (unknown) Neut # (Auto) (units ( unknown) date) (4913-3210) /uL unknown) (unknown) (no (unknown) (unknown) Neut # (Auto) 1500 (units (unknown) date) (2973-8402) /uL unknown) (unknown) (no (unknown) (unknown) Neut % (Auto) (units ( unknown) date) (50-75) % unknown) (unknown) (no (unknown) (unknown) Neut % (Auto) 45.5 (units (unknown) date) L (50-75) % unknown) (unknown) (no (unknown) (unknown) No Action (units (unkn own) date) unknown) (unknown) (no (unknown) (unknown) Obesity (units (unkno wn) date) unknown) (unknown) (no (unknown) (unknown) Ondansetron HCl (units (unknown) date) (Ondansetron 4 Mg unknown) Odt) 4 mg SL NOW ONE (unknown) (no (unknown) (unknown) Ondansetron HCl (units (unknown) date) (Ondansetron 4 Mg/2 unknown) Ml Inj) 4 mg IV Q6HR PRN (unknown) (no (unknown) (unknown) Ordered: (units (unkno wn) date) unknown) (unknown) (no (unknown) (unknown) Orders (units (unkno wn) date) unknown) (unknown) (no (unknown) (unknown) Orientation/cloudi (units (unknown) date) ng of sensorium ?> unknown) 0 = Oriented, can do serial additions (unknown) (no (unknown) (unknown) Over the course of (units (unknown) date) the night we have unknown) called various other facilities and they (unknown) (no (unknown) (unknown) Overweight (units (unk nown) date) unknown) (unknown) (no (unknown) (unknown) Oxygen Delivery (units (unknown) date) Method Room Air unknown) 07/12/22 16:10 (unknown) (no (unknown) (unknown) Oxygen Delivery (units (unknown) date) Method Room Air unknown) Room Air (unknown) (no (unknown) (unknown) Oxygen Delivery (units (unknown) date) Method unknown) (unknown) (no (unknown) (unknown) PRN Reason: Nausea (units (unknown) date) And Vomiting unknown) (unknown) (no (unknown) (unknown) Paroxysmal sweats (units (unknown) date) ?> 0 = No sweat unknown) visible (unknown) (no (unknown) (unknown) Patient (units (unkno wn) date) Disposition: [facility]fer [facility] (no (unknown) (unknown) Patient History (units (unknown) date) unknown) (unknown) (no (unknown) (unknown) Patient has (units (un known) date) allergy to Reglan unknown) and hydrocodone. She denies urinary frequency, (unknown) (no (unknown) (unknown) Patient's CIWA at (units (unknown) date) 2019 is 12, I unknown) ordered for her 2 more mg of lorazepam p.o., (unknown) (no (unknown) (unknown) Patient: (units (unkno wn) date) Sarah Connors R unknown) MR#: M (unknown) (no (unknown) (unknown) Patients with (units ( unknown) date) scores >= may unknown) require medication for withdrawal. (unknown) (no (unknown) (unknown) Pertinent lab (units ( unknown) date) findings reviewed: unknown) CBC is pertinent for mild leukopenia of 3.3, (unknown) (no (unknown) (unknown) Plt Count (units (unkn own) date) (150-400) X103/uL unknown) (unknown) (no (unknown) (unknown) Plt Count 226 (units ( unknown) date) (150-400) X103/uL unknown) (unknown) (no (unknown) (unknown) Point of Care (units ( unknown) date) Testing unknown) (unknown) (no (unknown) (unknown) Potassium (units (unkn own) date) (3.4-5.1) mmol/L unknown) (unknown) (no (unknown) (unknown) Potassium 3.9 (units ( unknown) date) (3.4-5.1) mmol/L unknown) (unknown) (no (unknown) (unknown) Test (units (unknown) date) Results Negative unknown) (unknown) (no (unknown) (unknown) Prescriptions: (units (unknown) date) unknown) (unknown) (no (unknown) (unknown) Previous Rx's (units ( unknown) date) unknown) (unknown) (no (unknown) (unknown) Psych: mental (units ( unknown) date) status is intact, unknown) patient has a normal affect although she is (unknown) (no (unknown) (unknown) Pulse Oximetry 97 (units (unknown) date) 100 unknown) (unknown) (no (unknown) (unknown) Pulse Oximetry 98 (units (unknown) date) 97 96 unknown) (unknown) (no (unknown) (unknown) Pulse Oximetry 99 (units (unknown) date) 07/12/22 16:10 unknown) (unknown) (no (unknown) (unknown) Pulse Oximetry 99 (units (unknown) date) unknown) (unknown) (no (unknown) (unknown) Pulse Rate 82 (units ( unknown) date) 07/12/22 16:10 unknown) (unknown) (no (unknown) (unknown) Pulse Rate 90 (units ( unknown) date) unknown) (unknown) (no (unknown) (unknown) Pulse Rate 94 H 92 (units (unknown) date) H 88 unknown) (unknown) (no (unknown) (unknown) Pulse Rate 97 H 87 (units (unknown) date) unknown) (unknown) (no (unknown) (unknown) Qualifiers: (units (un known) date) unknown) (unknown) (no (unknown) (unknown) Questions are (units ( unknown) date) addressed and there unknown) is agreement with the plan and for follow-up. (unknown) (no (unknown) (unknown) RBC (4.0-5.2) (units ( unknown) date) X106/uL unknown) (unknown) (no (unknown) (unknown) RBC 4.44 (4.0-5.2) (units (unknown) date) X106/uL unknown) (unknown) (no (unknown) (unknown) RDW (11.6-14.8) % (units (unknown) date) unknown) (unknown) (no (unknown) (unknown) RDW 17.3 H (units (unk nown) date) (11.6-14.8) % unknown) (unknown) (no (unknown) (unknown) RESULT SUMMARY: (units (unknown) date) unknown) (unknown) (no (unknown) (unknown) ROS Unobtainable: (units (unknown) date) All systems unknown) reviewed + are unremarkable except as noted in HPI (unknown) (no (unknown) (unknown) Referrals: (units (unk nown) date) unknown) (unknown) (no (unknown) (unknown) Related Data (units (u nknown) date) unknown) (unknown) (no (unknown) (unknown) Respiratory Rate (units (unknown) date) 14 07/12/22 16:10 unknown) (unknown) (no (unknown) (unknown) Respiratory Rate (units (unknown) date) 16 18 unknown) (unknown) (no (unknown) (unknown) Respiratory Rate (units (unknown) date) unknown) (unknown) (no (unknown) (unknown) Respiratory: (units (u nknown) date) normal effort, able unknown) to speak in complete sentences, without (unknown) (no (unknown) (unknown) Review of Systems (units (unknown) date) unknown) (unknown) (no (unknown) (unknown) Reviewed vitals (units (unknown) date) signs and nursing unknown) notes. (unknown) (no (unknown) (unknown) S/P myringotomy (units (unknown) date) with insertion of unknown) tube (unknown) (no (unknown) (unknown) SARS-CoV-2 (PCR) (units (unknown) date) (Negative) unknown) (unknown) (no (unknown) (unknown) SARS-CoV-2 (PCR) (units (unknown) date) Negative (Negative) unknown) (unknown) (no (unknown) (unknown) (spontaneous (units (unknown) date) vaginal delivery) unknown) (-09/05/18) (unknown) (no (unknown) (unknown) Salicylates < 1.0 (units (unknown) date) (<20) mg/dL unknown) (unknown) (no (unknown) (unknown) Salicylates (<20) (units (unknown) date) mg/dL unknown) (unknown) (no (unknown) (unknown) She was given a (units (unknown) date) couple water, a unknown) diet order was ordered however they may not (unknown) (no (unknown) (unknown) Signed By: (units (unk nown) date) unknown) (unknown) (no (unknown) (unknown) Skin: brisk (units (un known) date) capillary refill, unknown) without pallor or erythema (unknown) (no (unknown) (unknown) Smoker (units (unkno wn) date) unknown) (unknown) (no (unknown) (unknown) [place] and (units (unknown) date) [facility] in the unknown) past. She has been sober for a total of 18 (unknown) (no (unknown) (unknown) Smoking Status: (units (unknown) date) Former smoker unknown) (unknown) (no (unknown) (unknown) Social History (units (unknown) date) (Reviewed 07/12/22 unknown) @ 17:50 by Juliet Paz [facility]) (unknown) (no (unknown) (unknown) Social (units (unkno wn) date) considerations that unknown) may affect disposition: none (unknown) (no (unknown) (unknown) Sodium (137-145) (units (unknown) date) mmol/L unknown) (unknown) (no (unknown) (unknown) Sodium 140 (units (unk nown) date) (137-145) mmol/L unknown) (unknown) (no (unknown) (unknown) Sodium Chloride (units (unknown) date) (Normal Saline unknown) 0.9%) 1,000 mls @ 1,000 mls/hr IV BOLUS ONE (unknown) (no (unknown) (unknown) Source: patient (units (unknown) date) unknown) (unknown) (no (unknown) (unknown) Stated Complaint: (units (unknown) date) Stress/Depression unknown) (unknown) (no (unknown) (unknown) Stop: 07/12/22 (units (unknown) date) 17:33 unknown) (unknown) (no (unknown) (unknown) Stop: 07/12/22 (units (unknown) date) 17:45 unknown) (unknown) (no (unknown) (unknown) Stop: 07/12/22 (units (unknown) date) 18:28 unknown) (unknown) (no (unknown) (unknown) Stop: 07/12/22 (units (unknown) date) 18:31 unknown) (unknown) (no (unknown) (unknown) Stop: 07/12/22 (units (unknown) date) 19:25 unknown) (unknown) (no (unknown) (unknown) Stop: 07/12/22 (units (unknown) date) 20:03 unknown) (unknown) (no (unknown) (unknown) Stop: 07/12/22 (units (unknown) date) 20:17 unknown) (unknown) (no (unknown) (unknown) Substance Use (units ( unknown) date) Type: does not use unknown) (unknown) (no (unknown) (unknown) Surgical History (units (unknown) date) (Reviewed 07/12/22 unknown) @ 17:50 by LYUDMILA Do) (unknown) (no (unknown) (unknown) TSH (0.47-4.68) (units (unknown) date) uIU/mL unknown) (unknown) (no (unknown) (unknown) TSH 1.24 (units (unkno wn) date) (0.47-4.68) uIU/mL unknown) (unknown) (no (unknown) (unknown) Tactile (units (unkno wn) date) disturbances ?> 1 = unknown) Very mild itching, pin and needles, burning, or (unknown) (no (unknown) (unknown) Temperature 97.2 F (units (unknown) date) L 07/12/22 16:10 unknown) (unknown) (no (unknown) (unknown) Thiamine HCl (units (u nknown) date) (Thiamine 100 Mg unknown) Tablet) 100 mg PO NOW ONE (unknown) (no (unknown) (unknown) Thiamine HCl 200 (units (unknown) date) mg/ Sodium unknown) (Chloride) 102 mls @ 408 mls/hr IV NOW ONE (unknown) (no (unknown) (unknown) This is a (units (unkn own) date) 31-year-old female unknown) with history of alcohol abuse and appears to have (unknown) (no (unknown) (unknown) Time Seen by (units (u nknown) date) Provider: 07/12/22 unknown) 17:05 (unknown) (no (unknown) (unknown) Total Bilirubin (units (unknown) date) (0.2-1.3) mg/dL unknown) (unknown) (no (unknown) (unknown) Total Bilirubin (units (unknown) date) 0.4 (0.2-1.3) mg/dL unknown) (unknown) (no (unknown) (unknown) Total Protein (units ( unknown) date) (6.3-8.2) g/dL unknown) (unknown) (no (unknown) (unknown) Total Protein 7.3 (units (unknown) date) (6.3-8.2) g/dL unknown) (unknown) (no (unknown) (unknown) Tremor ?> 1 = Not (units (unknown) date) visible, but can be unknown) felt fingertip to fingertip (unknown) (no (unknown) (unknown) U Benzodiazepines (units (unknown) date) Scrn (Negative) unknown) (unknown) (no (unknown) (unknown) U Benzodiazepines (units (unknown) date) Scrn Negative unknown) (Negative) (unknown) (no (unknown) (unknown) U Marijuana (THC) (units (unknown) date) Screen (Negative) unknown) (unknown) (no (unknown) (unknown) U Marijuana (THC) (units (unknown) date) Screen Negative unknown) (Negative) (unknown) (no (unknown) (unknown) U Methamphetamines (units (unknown) date) Scrn (Negative) unknown) (unknown) (no (unknown) (unknown) U Methamphetamines (units (unknown) date) Scrn Negative unknown) (Negative) (unknown) (no (unknown) (unknown) U Opiates 300ng/mL (units (unknown) date) cut (Negative) unknown) (unknown) (no (unknown) (unknown) U Opiates 300ng/mL (units (unknown) date) cut Negative unknown) (Negative) (unknown) (no (unknown) (unknown) U Tricyclic (units (un known) date) Antidepress unknown) (Negative) (unknown) (no (unknown) (unknown) U Tricyclic (units (un known) date) Antidepress unknown) Negative (Negative) (unknown) (no (unknown) (unknown) Ur Amphetamines (units (unknown) date) Screen (Negative) unknown) (unknown) (no (unknown) (unknown) Ur Amphetamines (units (unknown) date) Screen Negative unknown) (Negative) (unknown) (no (unknown) (unknown) Ur Barbiturates (units (unknown) date) Screen (Negative) unknown) (unknown) (no (unknown) (unknown) Ur Barbiturates (units (unknown) date) Screen Negative unknown) (Negative) (unknown) (no (unknown) (unknown) Ur Culture (units (unk nown) date) Indicated? Specimen unknown) cultured (unknown) (no (unknown) (unknown) Ur Culture (units (unk nown) date) Indicated? unknown) (unknown) (no (unknown) (unknown) Ur MDMA Scrn (units (u nknown) date) (Ecstasy) unknown) (Negative) (unknown) (no (unknown) (unknown) Ur MDMA Scrn (units (u nknown) date) (Ecstasy) Negative unknown) (Negative) (unknown) (no (unknown) (unknown) Ur Oxycodone (units (u nknown) date) Screen (Negative) unknown) (unknown) (no (unknown) (unknown) Ur Oxycodone (units (u nknown) date) Screen Negative unknown) (Negative) (unknown) (no (unknown) (unknown) Ur Phencyclidine (units (unknown) date) Scrn (Negative) unknown) (unknown) (no (unknown) (unknown) Ur Phencyclidine (units (unknown) date) Scrn Negative unknown) (Negative) (unknown) (no (unknown) (unknown) Ur Squamous Epith (units (unknown) date) Cells (0-5/HPF) unknown) (unknown) (no (unknown) (unknown) Ur Squamous Epith (units (unknown) date) Cells 1-5 /hpf unknown) (0-5/HPF) (unknown) (no (unknown) (unknown) Urine Bacteria (units (unknown) date) (None) unknown) (unknown) (no (unknown) (unknown) Urine Bacteria (units (unknown) date) Many (>30) H (None) unknown) (unknown) (no (unknown) (unknown) Urine Cocaine (units ( unknown) date) Screen (Negative) unknown) (unknown) (no (unknown) (unknown) Urine Cocaine (units ( unknown) date) Screen Negative unknown) (Negative) (unknown) (no (unknown) (unknown) Urine Dip (units (unkn own) date) unknown) (unknown) (no (unknown) (unknown) Urine Methadone (units (unknown) date) Screen (Negative) unknown) (unknown) (no (unknown) (unknown) Urine Methadone (units (unknown) date) Screen Negative unknown) (Negative) (unknown) (no (unknown) (unknown) Urine RBC (units (unkn own) date) (0-5/HPF) unknown) (unknown) (no (unknown) (unknown) Urine RBC 1-5/hpf (units (unknown) date) (0-5/HPF) unknown) (unknown) (no (unknown) (unknown) Urine Specific (units (unknown) date) [place] 1.015 unknown) (unknown) (no (unknown) (unknown) Urine WBC (units (unkn own) date) (0-5/HPF) unknown) (unknown) (no (unknown) (unknown) Urine WBC 1-5/hpf (units (unknown) date) (0-5/HPF) unknown) (unknown) (no (unknown) (unknown) Urine microscopy (units (unknown) date) with many bacteria, unknown) pending for culture, will treat for acute (unknown) (no (unknown) (unknown) Visual (units (unkno wn) date) disturbances ?> 1 = unknown) Very mild sensitivity (unknown) (no (unknown) (unknown) Vital Signs - 8 hr (units (unknown) date) unknown) (unknown) (no (unknown) (unknown) Vital Signs (units (un known) date) unknown) (unknown) (no (unknown) (unknown) Vital signs: (units (u nknown) date) unknown) (unknown) (no (unknown) (unknown) WBC (4.5-11.0) (units (unknown) date) X103/uL unknown) (unknown) (no (unknown) (unknown) WBC 3.3 L (units (unkn own) date) (4.5-11.0) X103/uL unknown) (unknown) (no (unknown) (unknown) [1900] ([place]) (units (unknown) date) Patient received in unknown) sign out [employer]. I have reviewed the (unknown) (no (unknown) (unknown) [Embedded Image (units (unknown) date) Not Available] unknown) (unknown) (no (unknown) (unknown) [METOCLOPRAMIDE] (units (unknown) date) unknown) (unknown) (no (unknown) (unknown) acceptable. She is (units (unknown) date) nauseated, without unknown) vomiting, received Zofran previously and (unknown) (no (unknown) (unknown) acetaminophen 325 (units (unknown) date) mg tablet 325 mg PO unknown) Q6H PRN pain #20 tabs 02/05/20 (unknown) (no (unknown) (unknown) acetaminophen (units ( unknown) date) [Tylenol] 325 mg unknown) tablet (unknown) (no (unknown) (unknown) alcohol in 300s, (units (unknown) date) she was last here unknown) in the emergency department in May of (unknown) (no (unknown) (unknown) alcohol intake (units (unknown) date) frequency: 3 or unknown) more drinks per day (unknown) (no (unknown) (unknown) alcohol intake: (units (unknown) date) former unknown) (unknown) (no (unknown) (unknown) alcohol level (units ( unknown) date) below 0.08 to be unknown) considered for placement there. (unknown) (no (unknown) (unknown) and below (units (unkn own) date) unknown) (unknown) (no (unknown) (unknown) and she drinking (units (unknown) date) daily since this unknown) happened. She wants rehab. She has been (unknown) (no (unknown) (unknown) anxious, (units (unkno wn) date) intoxicated and now unknown) withdrawing. pleasant and cooperative (unknown) (no (unknown) (unknown) are currently no (units (unknown) date) available beds. unknown) Patient resting comfortably (unknown) (no (unknown) (unknown) arrhythmia, or (units (unknown) date) acute ischemic unknown) changes. (unknown) (no (unknown) (unknown) at extension and (units (unknown) date) states that she unknown) feels symptoms of alcohol withdrawal. Denies (unknown) (no (unknown) (unknown) being depressed at (units (unknown) date) this time, CIWA is unknown) an 8. (unknown) (no (unknown) (unknown) bpm with rightward (units (unknown) date) axis and normal unknown) intervals. No STEMI, ST segment changes, (unknown) (no (unknown) (unknown) clinical course (units (unknown) date) and performed an unknown) independent history and physical exam. Patient (unknown) (no (unknown) (unknown) current (units (unkno wn) date) occupational unknown) exposures/hazards: Yes (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 with Pandemic ) (unknown) (no (unknown) (unknown) cystitis without (units (unknown) date) hematuria unknown) (unknown) (no (unknown) (unknown) cystitis (units (unkno wn) date) unknown) (unknown) (no (unknown) (unknown) cystitis, she is (units (unknown) date) p.o. tolerant, unknown) still pending lab work (unknown) (no (unknown) (unknown) deliver since it (units (unknown) date) is after 17:00 and unknown) the diet order was ordered at 17:30. Samira (unknown) (no (unknown) (unknown) detox 11 times, (units (unknown) date) states that it has unknown) taking Antabuse, Librium, Ativan, she denies (unknown) (no (unknown) (unknown) detox as well. (units (unknown) date) unknown) (unknown) (no (unknown) (unknown) diarrhea or (units (un known) date) current stool unknown) changes. (unknown) (no (unknown) (unknown) diphenhydramine (units (unknown) [...] mg unknown) capsule (unknown) (no (unknown) (unknown) draw her labs (units ( unknown) date) unknown) (unknown) (no (unknown) (unknown) education level: (units (unknown) date) college unknown) (unknown) (no (unknown) (unknown) electrolyte (units (un known) date) abnormalities. unknown) (unknown) (no (unknown) (unknown) emergency (units (unkn own) date) department on unknown) 06/18/2022 and a few days prior to that with a blood (unknown) (no (unknown) (unknown) extremities (units (un known) date) unknown) (unknown) (no (unknown) (unknown) renee/zoroastrianism: (units (unknown) date) Buddhist unknown) (unknown) (no (unknown) (unknown) fidgeting (units (unkn own) date) unknown) (unknown) (no (unknown) (unknown) fluid, EtOH, and (units (unknown) date) CIWA, ordered 2 mg unknown) of IV lorazepam for patient's symptoms, (unknown) (no (unknown) (unknown) for alcohol (units (un known) date) related complaints unknown) through 2019, and she presented to the [facility] (unknown) (no (unknown) (unknown) from social work (units (unknown) date) is aware and unknown) pending her lab work to arrange for inpatient (unknown) (no (unknown) (unknown) go to detox. She (units (unknown) date) is currently unknown) intoxicated endorses symptoms of alcohol (unknown) (no (unknown) (unknown) her urine (units (unkn own) date) microscopy came unknown) back positive for many bacteria, will treat for acute (unknown) (no (unknown) (unknown) household members: (units (unknown) date) spouse and children unknown) (unknown) (no (unknown) (unknown) hydrated. (units (unkn own) date) unknown) (unknown) (no (unknown) (unknown) hydrocodone (units (un known) date) [HYDROCODONE] unknown) AdvReac Unknown VOMITING Verified 07/12/22 16:18 (unknown) (no (unknown) (unknown) ibuprofen 600 mg (units (unknown) date) Tablet unknown) (unknown) (no (unknown) (unknown) ibuprofen 600 mg (units (unknown) date) tablet 600 mg PO unknown) Q6HR PRN Pain, Mild 07/04/20 (unknown) (no (unknown) (unknown) intoxicated, (units (u nknown) date) pleasant, unknown) interactive and comfortable although active, anxious and (unknown) (no (unknown) (unknown) is 338, COVID PCR (units (unknown) date) was negative, drug unknown) screen is negative for all tested agents, (unknown) (no (unknown) (unknown) is allergic to (units ( unknown) date) Reglan, will dose unknown) with another 5 mg of Zofran, no QT prolongation (unknown) (no (unknown) (unknown) knowing if she is (units (unknown) date) had phenobarbital unknown) in the past. (unknown) (no (unknown) (unknown) limited history (units (unknown) date) currently due to unknown) intoxication. She states that she is recently (unknown) (no (unknown) (unknown) lorazepam at 2 mg (units (unknown) date) for this. unknown) (unknown) (no (unknown) (unknown) marital status: (units (unknown) date) unknown) (unknown) (no (unknown) (unknown) metoclopramide (units (unknown) date) Allergy Mild unknown) RASH/HIVES Verified 07/12/22 16:18 (unknown) (no (unknown) (unknown) mild anemia but (units (unknown) date) improved from her unknown) prior with H+H of 11.5 and 35.3, no evidence (unknown) (no (unknown) (unknown) months. She denies (units (unknown) date) any recent unknown) injuries, denies chance of , denies any (unknown) (no (unknown) (unknown) nausea vomiting or (units (unknown) date) abdominal pain at unknown) this time. 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 (units (u nknown) date) Ativan for her unknown) symptoms and ask our into call lab to come up and (unknown) (no (unknown) (unknown) other ingestions, (units (unknown) date) is pleasant, unknown) seeking help with her intoxication and wishes to (unknown) (no (unknown) (unknown) patient's (units (unknown) date) is at the bedside unknown) offering support, she raises nausea, another (unknown) (no (unknown) (unknown) prenat.vits,otis,mi (units (unknown) date) [id number] 1 tab unknown) PO DAILY 12/30/19 07/03/20 (unknown) (no (unknown) (unknown) prenat.vits,otis,mi (units (unknown) date) [id number] Tablet unknown) (unknown) (no (unknown) (unknown) relapsed due to a (units (unknown) date) divorce with her unknown) . She used to be a frequent visitor (unknown) (no (unknown) (unknown) resting (units (unkno wn) date) comfortably, unknown) [facility] ([facility]) (no (unknown) (unknown) scores of 10 or (units (unknown) date) less by 4 unknown) hours a piece and must also have blood (unknown) (no (unknown) (unknown) second hand (units (un known) date) exposure: No unknown) (growing up as a child - not currently) (unknown) (no (unknown) (unknown) significant tremor (units (unknown) date) or tongue unknown) fasciculation, she has a mild tremor with her arms (unknown) (no (unknown) (unknown) social work and (units (unknown) date) orders are pending unknown) (unknown) (no (unknown) (unknown) special renee (units ( unknown) date) needs: No unknown) (unknown) (no (unknown) (unknown) substance abuse, (units (unknown) date) alcohol unknown) intoxication, psychosis, mood disorder, depression (unknown) (no (unknown) (unknown) substance use (units ( unknown) date) type: does not use unknown) (unknown) (no (unknown) (unknown) tablet vomiting (units (unknown) date) #14 tabs unknown) (unknown) (no (unknown) (unknown) tablet vomiting (units (unknown) date) #20 tabs unknown) (unknown) (no (unknown) (unknown) tablet vomiting (units (unknown) date) #30 tabs unknown) (unknown) (no (unknown) (unknown) tenderness or (units ( unknown) date) exquisite unknown) tenderness with exam. (unknown) (no (unknown) (unknown) that she drinks (units (unknown) date) vodka and admits to unknown) drinking heavily today, states that she took (unknown) (no (unknown) (unknown) the bottle upside (units (unknown) date) down and started unknown) checking from it. She states that she drank (unknown) (no (unknown) (unknown) thyroid studies (units (unknown) date) are still pending. unknown) No significant findings to her CMP. No (unknown) (no (unknown) (unknown) tramadol 50 mg (units (unknown) date) tablet 50 mg PO Q6H unknown) PRN pain #10 tabs 06/12/22 (unknown) (no (unknown) (unknown) tramadol 50 mg (units (unknown) date) tablet unknown) (unknown) (no (unknown) (unknown) tremors, no (units (un known) date) tachycardia, her unknown) CIWA is currently 10, ordered another p.o. dose of (unknown) (no (unknown) (unknown) urgency or flank (units (unknown) date) pain, endorses unknown) nausea without vomiting. Patient has been to (unknown) (no (unknown) (unknown) well as prior (units ( unknown) date) records if unknown) available. (unknown) (no (unknown) (unknown) wheezing, stridor, (units (unknown) date) or abnormal breath unknown) sounds. No retractions or tachypnea. (unknown) (no (unknown) (unknown) withdrawal. (units (un known) date) Patient states that unknown) she takes Seroquel 300 mg at night as well as Result panel [id number] (unknown) (no (unknown) (unknown) (no value) (units (unk nown) date) unknown) (unknown) (no (unknown) (unknown) <Juliet Paz, (units (unknown) date) LYUDMILA - Last Filed: unknown) 07/12/22 20:27> (unknown) (no (unknown) (unknown) <Reinaldo Arthur DO (units (unknown) date) - Last Filed: unknown) 07/13/22 06:03> (unknown) (no (unknown) (unknown) (1-3) #30 tabs (units (unknown) date) unknown) (unknown) (no (unknown) (unknown) (Benadryl) caps (units (unknown) date) unknown) (unknown) (no (unknown) (unknown) (Colace) (units (unkno wn) date) unknown) (unknown) (no (unknown) (unknown) (Tylenol) (units (unkn own) date) unknown) (unknown) (no (unknown) (unknown) [id number] (units (unkn own) date) unknown) (unknown) (no (unknown) (unknown) 01:28 07/13/22 (units (unknown) date) unknown) (unknown) (no (unknown) (unknown) 01:50 (units (unkno wn) date) unknown) (unknown) (no (unknown) (unknown) 02:00 07/13/22 (units (unknown) date) unknown) (unknown) (no (unknown) (unknown) 02:14 07/13/22 (units (unknown) date) unknown) (unknown) (no (unknown) (unknown) 02:14 (units (unkno wn) date) unknown) (unknown) (no (unknown) (unknown) 02:30 (units (unkno wn) date) unknown) (unknown) (no (unknown) (unknown) 07/12/22 07/12/22 (units (unknown) date) 07/12/22 unknown) Range/Units (unknown) (no (unknown) (unknown) 07/12/22 19:15 (units (unknown) date) unknown) (unknown) (no (unknown) (unknown) 07/12/22 (units (unkno wn) date) unknown) (unknown) (no (unknown) (unknown) 07/13/22 (units (unkno wn) date) unknown) (unknown) (no (unknown) (unknown) 0530 -patient (units (u nknown) date) beginning to feel a unknown) bit agitated and restless, she is tachycardic. (unknown) (no (unknown) (unknown) 1 tab PO DAILY (units (unknown) date) unknown) (unknown) (no (unknown) (unknown) 100 mg PO BID Qty: (units (unknown) date) 30 0RF unknown) (unknown) (no (unknown) (unknown) 16:32 16:32 16:32 (units (unknown) date) unknown) (unknown) (no (unknown) (unknown) 1836 patient still (units (unknown) date) does not have an unknown) IV, has not received any IV fluid her (unknown) (no (unknown) (unknown) 1900 still no IV, (units (unknown) date) patient is p.o. unknown) challenging, she received her p.o. lorazepam, (unknown) (no (unknown) (unknown) 1930, patient now (units (unknown) date) feels depressed, unknown) she is lying in bed, feeling bad, has (unknown) (no (unknown) (unknown) 19:15 19:15 19:15 (units (unknown) date) unknown) (unknown) (no (unknown) (unknown) 1999 patient is (units (unknown) date) feeling better now, unknown) her lab work is starting to return and ETOH (unknown) (no (unknown) (unknown) 2002 patient (units (u nknown) date) requests to take unknown) her home dosing of Seroquel 300 mg, this is (unknown) (no (unknown) (unknown) 2022 with similar (units (unknown) date) symptoms. She comes unknown) in complaining of needing help, states (unknown) (no (unknown) (unknown) 2199 -smoker point (units (unknown) date) called back and unknown) states that patient must have free CIWA (unknown) (no (unknown) (unknown) 23:30 07/13/22 (units (unknown) date) unknown) (unknown) (no (unknown) (unknown) 25 mg PO BEDTIME (units (unknown) date) PRN (Reason: unknown) insomnia) Qty: 20 0RF (unknown) (no (unknown) (unknown) 325 mg PO Q6H PRN (units (unknown) date) (Reason: pain) Qty: unknown) 20 0RF (unknown) (no (unknown) (unknown) 4 Zofran was (units (u nknown) date) ordered. So has not unknown) been given, patient is signed out to (unknown) (no (unknown) (unknown) 4 mg PO [...] Qty: 30 0RF (unknown) (no (unknown) (unknown) 750 mL of time. (units (unknown) date) She just she has unknown) nothing to do but relapsed. This 3 weeks ago (unknown) (no (unknown) (unknown) 9 points (units (unkno wn) date) unknown) (unknown) (no (unknown) (unknown) ALT (<35) IU/L (units (unknown) date) unknown) (unknown) (no (unknown) (unknown) ALT 21 (<35) IU/L (units (unknown) date) unknown) (unknown) (no (unknown) (unknown) AST (14-36) IU/L (units (unknown) date) unknown) (unknown) (no (unknown) (unknown) AST 67 H (14-36) (units (unknown) date) IU/L unknown) (unknown) (no (unknown) (unknown) Acetaminophen < 10 (units (unknown) date) (10-30) ug/mL unknown) (unknown) (no (unknown) (unknown) Acetaminophen (units ( unknown) date) (10-30) ug/mL unknown) (unknown) (no (unknown) (unknown) Acute cystitis (units (unknown) date) unknown) (unknown) (no (unknown) (unknown) Admin: 07/12/22 (units (unknown) date) 19:47 Dose: 500 mg unknown) (unknown) (no (unknown) (unknown) Age/Sex: 31 / F (units (unknown) date) unknown) (unknown) (no (unknown) (unknown) Agitation ?> 2 = (units (unknown) date) (More severe unknown) symptoms) (unknown) (no (unknown) (unknown) Albumin (3.5-5.0) (units (unknown) date) g/dL unknown) (unknown) (no (unknown) (unknown) Albumin 4.3 (units (un known) date) (3.5-5.0) g/dL unknown) (unknown) (no (unknown) (unknown) Albumin/Globulin (units (unknown) date) Ratio (1.0-2.8) unknown) (unknown) (no (unknown) (unknown) Albumin/Globulin (units (unknown) date) Ratio 1.4 (1.0-2.8) unknown) (unknown) (no (unknown) (unknown) Alcohol use (units (un known) date) disorder unknown) (unknown) (no (unknown) (unknown) Alcoholism (units (unk nown) date) unknown) (unknown) (no (unknown) (unknown) Alkaline (units (unkno wn) date) Phosphatase unknown) (38-126) U/L (unknown) (no (unknown) (unknown) Alkaline (units (unkno wn) date) Phosphatase 98 unknown) (38-126) U/L (unknown) (no (unknown) (unknown) Allergies (units (unkn own) date) unknown) (unknown) (no (unknown) (unknown) Allergy/AdvReac (units (unknown) date) Type Severity unknown) Reaction Status Date / Time (unknown) (no (unknown) (unknown) Anemia (-2018) (units (unknown) date) unknown) (unknown) (no (unknown) (unknown) Anxiety ?> 2 = (units (unknown) date) (More severe unknown) symptoms) (unknown) (no (unknown) (unknown) Auditory (units (unkno wn) date) disturbances ?> 1 = unknown) Very mild harshness or ability to frighten (unknown) (no (unknown) (unknown) BUN (7-17) mg/dL (units (unknown) date) unknown) (unknown) (no (unknown) (unknown) BUN 9 (7-17) mg/dL (units (unknown) date) unknown) (unknown) (no (unknown) (unknown) BUN/Creatinine (units (unknown) date) Ratio (6-22) unknown) (unknown) (no (unknown) (unknown) BUN/Creatinine (units (unknown) date) Ratio 11.0 (6-22) unknown) (unknown) (no (unknown) (unknown) Baso # (Auto) (units ( unknown) date) (0-100) /uL unknown) (unknown) (no (unknown) (unknown) Baso # (Auto) 0 (units (unknown) date) (0-100) /uL unknown) (unknown) (no (unknown) (unknown) Baso % (Auto) (units ( unknown) date) (0-2) % unknown) (unknown) (no (unknown) (unknown) Baso % (Auto) 0.9 (units (unknown) date) (0-2) % unknown) (unknown) (no (unknown) (unknown) Bedside Urine (units ( unknown) date) Bilirubin - unknown) Negative (unknown) (no (unknown) (unknown) Bedside Urine (units ( unknown) date) Glucose Negative unknown) (unknown) (no (unknown) (unknown) Bedside Urine (units ( unknown) date) Ketone - Negative unknown) (unknown) (no (unknown) (unknown) Bedside Urine (units ( unknown) date) Leukocytes - unknown) Negative (unknown) (no (unknown) (unknown) Bedside Urine (units ( unknown) date) Nitrite + Positive unknown) (unknown) (no (unknown) (unknown) Bedside Urine (units ( unknown) date) Occult Blood - unknown) Negative (unknown) (no (unknown) (unknown) Bedside Urine (units ( unknown) date) Protein - Negative unknown) (unknown) (no (unknown) (unknown) Bedside Urine (units ( unknown) date) Urobilinogen - unknown) Negative (unknown) (no (unknown) (unknown) Bedside Urine pH (units (unknown) date) 6.0 unknown) (unknown) (no (unknown) (unknown) Blood Pressure (units (unknown) date) 102/59 L unknown) (unknown) (no (unknown) (unknown) Blood Pressure (units (unknown) date) 112/62 07/12/22 unknown) 16:10 (unknown) (no (unknown) (unknown) Blood Pressure (units (unknown) date) 99/58 L unknown) (unknown) (no (unknown) (unknown) Blood Pressure (units (unknown) date) [Left Arm] 95/53 L unknown) (unknown) (no (unknown) (unknown) Blood Pressure (units (unknown) date) [Left Arm] unknown) (unknown) (no (unknown) (unknown) Blood Pressure (units (unknown) date) unknown) (unknown) (no (unknown) (unknown) CIWA is now worse (units (unknown) date) and she has unknown) tremors, anxiety is worsening and agitation, (unknown) (no (unknown) (unknown) CIWA-Ar for (units (un known) date) Alcohol Withdrawal unknown) from [facility] on 07/12/2022 (unknown) (no (unknown) (unknown) Calcium (8.4-10.2) (units (unknown) date) mg/dL unknown) (unknown) (no (unknown) (unknown) Calcium 8.0 L (units ( unknown) date) (8.4-10.2) mg/dL unknown) (unknown) (no (unknown) (unknown) Carbon Dioxide (units (unknown) date) (22-32) mmol/L unknown) (unknown) (no (unknown) (unknown) Carbon Dioxide 23 (units (unknown) date) (22-32) mmol/L unknown) (unknown) (no (unknown) (unknown) Cardiovascular: (units (unknown) date) Tachycardic rate unknown) and rhythm, no peripheral edema, warm (unknown) (no (unknown) (unknown) Cephalexin HCl (units (unknown) date) (Cephalexin 250 Mg unknown) Capsule) 500 mg PO Q6H SANDY (unknown) (no (unknown) (unknown) Chief Complaint: (units (unknown) date) Alcohol unknown) intoxication, seeking detox (unknown) (no (unknown) (unknown) Chief Complaint: (units (unknown) date) Toxicology Problem unknown) (unknown) (no (unknown) (unknown) Chloride (98-107) (units (unknown) date) mmol/L unknown) (unknown) (no (unknown) (unknown) Chloride 104 (units (u nknown) date) (98-107) mmol/L unknown) (unknown) (no (unknown) (unknown) Clinical (units (unkno wn) date) Impression: unknown) (unknown) (no (unknown) (unknown) Clinical decision (units (unknown) date) rules or scores unknown) evaluated: CIWA of 9 at 1753 (unknown) (no (unknown) (unknown) Course of care: (units (unknown) date) Patient is a unknown) difficult IV stick, ordered IV with lab work, (unknown) (no (unknown) (unknown) Course (units (unkno wn) date) unknown) (unknown) (no (unknown) (unknown) Creatinine (units (unk nown) date) (0.52-1.04) mg/dL unknown) (unknown) (no (unknown) (unknown) Creatinine 0.82 (units (unknown) date) (0.52-1.04) mg/dL unknown) (unknown) (no (unknown) (unknown) Samantha Arthur gave her (units (unknown) date) grilled cheese, unknown) soup, some juice and encouraged her to stay (unknown) (no (unknown) (unknown) : 1990 (units (unknown) date) Acct:[id number] unknown) (unknown) (no (unknown) (unknown) Date of Service: (units (unknown) date) 07/12/22 unknown) (unknown) (no (unknown) (unknown) Departure (units (unkn own) date) unknown) (unknown) (no (unknown) (unknown) Differential (units (u nknown) date) diagnoses include unknown) but are not limited to: Alcohol withdrawal, (unknown) (no (unknown) (unknown) Discharge Plan (units (unknown) date) unknown) (unknown) (no (unknown) (unknown) Discontinued (units (u nknown) date) Medications unknown) (unknown) (no (unknown) (unknown) Documented By: AP (units (unknown) date) unknown) (unknown) (no (unknown) (unknown) Documented By: KB (units (unknown) date) unknown) (unknown) (no (unknown) (unknown) Documented By: OW (units (unknown) date) unknown) (unknown) (no (unknown) (unknown) ECG Data (units (unkno wn) date) unknown) (unknown) (no (unknown) (unknown) EKG independently (units (unknown) date) reviewed by myself unknown) at 1830 reveals normal sinus rhythm at 72 (unknown) (no (unknown) (unknown) ER Physician: (units ( unknown) date) Reinaldo Arthur D.O. unknown) (unknown) (no (unknown) (unknown) Emergency Report (units (unknown) date) unknown) (unknown) (no (unknown) (unknown) Eos # (Auto) (units (u nknown) date) (0-450) /uL unknown) (unknown) (no (unknown) (unknown) Eos # (Auto) 0 (units (unknown) date) (0-450) /uL unknown) (unknown) (no (unknown) (unknown) Eos % (Auto) (2-4) (units (unknown) date) % unknown) (unknown) (no (unknown) (unknown) Eos % (Auto) 0.3 L (units (unknown) date) (2-4) % unknown) (unknown) (no (unknown) (unknown) Esterase (units (unkno wn) date) unknown) (unknown) (no (unknown) (unknown) Estimated GFR > 60 (units (unknown) date) (>60) mL/min unknown) (unknown) (no (unknown) (unknown) Estimated GFR (units ( unknown) date) (>60) mL/min unknown) (unknown) (no (unknown) (unknown) Ethyl Alcohol ( - (units (unknown) date) 10) mg/dL unknown) (unknown) (no (unknown) (unknown) Ethyl Alcohol 338 (units (unknown) date) H ( - 10) mg/dL unknown) (unknown) (no (unknown) (unknown) Exam Narrative: (units (unknown) date) unknown) (unknown) (no (unknown) (unknown) Exam (units (unkno wn) date) unknown) (unknown) (no (unknown) (unknown) Family History (units (unknown) date) (Reviewed 07/12/22 unknown) @ 17:50 by LYUDMILA Do) (unknown) (no (unknown) (unknown) Family/Other (units (u nknown) date) Alcoholism unknown) (unknown) (no (unknown) (unknown) Family/Other (units (u nknown) date) Diabetes mellitus unknown) (unknown) (no (unknown) (unknown) Father Alcoholism (units (unknown) date) unknown) (unknown) (no (unknown) (unknown) Tonia Schneider MD (units (unknown) date) [Primary Care unknown) Provider] (unknown) (no (unknown) (unknown) Folic Acid (Folic (units (unknown) date) Acid 1 Mg Tablet) 1 unknown) mg PO DAILY SANDY (unknown) (no (unknown) (unknown) Free T4 (units (unkno wn) date) (0.78-2.19) ng/dL unknown) (unknown) (no (unknown) (unknown) Free T4 0.93 (units (u nknown) date) (0.78-2.19) ng/dL unknown) (unknown) (no (unknown) (unknown) GI: abdomen soft, (units (unknown) date) nontender to unknown) palpation, nondistended, without masses, rebound (unknown) (no (unknown) (unknown) General (units (unkno wn) date) unknown) (unknown) (no (unknown) (unknown) General: (units (unkno wn) date) cooperative, unknown) comfortable, in no acute distress, well groomed, appears (unknown) (no (unknown) (unknown) Globulin (1.7-4.1) (units (unknown) date) g/dL unknown) (unknown) (no (unknown) (unknown) Globulin 3.0 (units (u nknown) date) (1.7-4.1) g/dL unknown) (unknown) (no (unknown) (unknown) Glucose (70-100) (units (unknown) date) mg/dL unknown) (unknown) (no (unknown) (unknown) Glucose 111 H (units ( unknown) date) (70-100) mg/dL [...] extraction () unknown) (unknown) (no (unknown) (unknown) HEENT: symmetrical (units (unknown) date) facial expressions, unknown) dry mucous membranes (unknown) (no (unknown) (unknown) HPI - Alcohol (units ( unknown) date) unknown) (unknown) (no (unknown) (unknown) HPI narrative: (units (unknown) date) unknown) (unknown) (no (unknown) (unknown) Hct (36-46) % (units ( unknown) date) unknown) (unknown) (no (unknown) (unknown) Hct 35.3 L (36-46) (units (unknown) date) % unknown) (unknown) (no (unknown) (unknown) Headache/fullness (units (unknown) date) in head ?> 1 = Very unknown) mild (unknown) (no (unknown) (unknown) Hematuria (units (unkn own) date) presence: without unknown) hematuria Qualified Code(s): N30.00 - Acute (unknown) (no (unknown) (unknown) Hgb (12.0-16.0) (units (unknown) date) g/dL unknown) (unknown) (no (unknown) (unknown) Hgb 11.5 L (units (unk nown) date) (12.0-16.0) g/dL unknown) (unknown) (no (unknown) (unknown) History of Present (units (unknown) date) Illness unknown) (unknown) (no (unknown) (unknown) Home Medications (units (unknown) date) unknown) (unknown) (no (unknown) (unknown) I have (units (unkno wn) date) independently unknown) reviewed the patient's vital signs and nursing notes as (unknown) (no (unknown) (unknown) INPUTS: (units (unkno wn) date) unknown) (unknown) (no (unknown) (unknown) Independent (units (un known) date) historian: Patient unknown) (unknown) (no (unknown) (unknown) Initial Vital (units ( unknown) date) Signs unknown) (unknown) (no (unknown) (unknown) Initial Vital (units ( unknown) date) Signs: unknown) (unknown) (no (unknown) (unknown) Insomnia (units (unkno wn) date) unknown) (unknown) (no (unknown) (unknown) Interpretation: (units (unknown) date) unknown) (unknown) (no (unknown) (unknown) [facility] (units (unknown) date) [address] unknown) [place] [address] (unknown) (no (unknown) (unknown) Lab Data (units (unkno wn) date) unknown) (unknown) (no (unknown) (unknown) Lab Results (units (un known) date) unknown) (unknown) (no (unknown) (unknown) Labs: (units (unkno wn) date) unknown) (unknown) (no (unknown) (unknown) Last Admin: (units (un known) date) 07/12/22 18:39 unknown) Dose: 4 mg (unknown) (no (unknown) (unknown) Last Admin: (units (un known) date) 07/12/22 18:40 unknown) Dose: 1 mg (unknown) (no (unknown) (unknown) Last Admin: (units (un known) date) 07/12/22 18:56 unknown) Dose: Not Given (unknown) (no (unknown) (unknown) Last Admin: (units (un known) date) 07/12/22 19:48 unknown) Dose: 2 mg (unknown) (no (unknown) (unknown) Last Admin: (units (un known) date) 07/12/22 19:49 unknown) Dose: 100 mg (unknown) (no (unknown) (unknown) Last Admin: (units (un known) date) 07/13/22 02:11 unknown) Dose: 500 mg (unknown) (no (unknown) (unknown) Last Admin: (units (un known) date) 07/13/22 03:36 unknown) Dose: 2 mg (unknown) (no (unknown) (unknown) Last Admin: (units (un known) date) 07/13/22 06:01 unknown) Dose: Not Given (unknown) (no (unknown) (unknown) Librium but she (units (unknown) date) does not have this unknown) medicine with her, she only has the Seroquel. (unknown) (no (unknown) (unknown) Lorazepam (units (unkn own) date) (Lorazepam 0.5 Mg unknown) Tablet) 1 mg PO NOW ONE (unknown) (no (unknown) (unknown) Lorazepam (units (unkn own) date) (Lorazepam 0.5 Mg unknown) Tablet) 2 mg PO NOW ONE (unknown) (no (unknown) (unknown) Lorazepam (units (unkn own) date) (Lorazepam 2 Mg/Ml unknown) Inj) 2 mg IV NOW ONE (unknown) (no (unknown) (unknown) Lymph # (Auto) (units (unknown) date) ([id number]) /uL unknown) (unknown) (no (unknown) (unknown) Lymph # (Auto) (units (unknown) date) 1700 ([id number]) unknown) /uL (unknown) (no (unknown) (unknown) Lymph % (Auto) (units (unknown) date) (25-40) % unknown) (unknown) (no (unknown) (unknown) Lymph % (Auto) (units (unknown) date) 50.6 H (25-40) % unknown) (unknown) (no (unknown) (unknown) MCH (26-34) PG (units (unknown) date) unknown) (unknown) (no (unknown) (unknown) MCH 26.0 (26-34) (units (unknown) date) PG unknown) (unknown) (no (unknown) (unknown) MCHC (30-36) % (units (unknown) date) unknown) (unknown) (no (unknown) (unknown) MCHC 32.7 (30-36) (units (unknown) date) % unknown) (unknown) (no (unknown) (unknown) MCV (80-100) fL (units (unknown) date) unknown) (unknown) (no (unknown) (unknown) MCV 79.5 L (units (unk nown) date) (80-100) fL unknown) (unknown) (no (unknown) (unknown) MDM - Alcohol (units ( unknown) date) unknown) (unknown) (no (unknown) (unknown) MDM Narrative (units ( unknown) date) unknown) (unknown) (no (unknown) (unknown) MIPS: This (units (unk n) date) encounter doesn't unknown) have any diagnosis' associated with MIPS criteria. (unknown) (no (unknown) (unknown) MSK: moves all (units (unknown) date) extremities, unknown) neurovascularly intact, no weakness, normal tone no (unknown) (no (unknown) (unknown) Medical History (units (unknown) date) (Reviewed 07/12/22 unknown) @ 17:50 by Juliet Paz [facility]) (unknown) (no (unknown) (unknown) Medical decision (units (unknown) date) making narrative: unknown) (unknown) (no (unknown) (unknown) Medication (units (unk n) date) Instructions unknown) Recorded Confirmed (unknown) (no (unknown) (unknown) Medication (units (unk nown) date) Instructions unknown) Recorded (unknown) (no (unknown) (unknown) Menometrorrhagia (units (unknown) date) unknown) (unknown) (no (unknown) (unknown) Mode of arrival: (units (unknown) date) Ambulatory unknown) (unknown) (no (unknown) (unknown) Yates # (Auto) (units ( unknown) date) (0-900) /uL unknown) (unknown) (no (unknown) (unknown) Yates # (Auto) 100 (units (unknown) date) (0-900) /uL unknown) (unknown) (no (unknown) (unknown) Yates % (Auto) (units ( unknown) date) (3-14) % unknown) (unknown) (no (unknown) (unknown) Yates % (Auto) 2.7 (units (unknown) date) L (3-14) % unknown) (unknown) (no (unknown) (unknown) Mother Diabetes (units (unknown) date) mellitus unknown) (unknown) (no (unknown) (unknown) Narrative (units (unkn own) date) unknown) (unknown) (no (unknown) (unknown) Nausea/vomiting ?> (units (unknown) date) 0 = No nausea and unknown) no vomiting (unknown) (no (unknown) (unknown) Neuro: normal (units ( unknown) date) speech and unknown) cognition, A+O x3, ambulatory, clear speech (unknown) (no (unknown) (unknown) Neut # (Auto) (units ( unknown) date) (5653-1710) /uL unknown) (unknown) (no (unknown) (unknown) Neut # (Auto) 1500 (units (unknown) date) (0294-4635) /uL unknown) (unknown) (no (unknown) (unknown) Neut % (Auto) (units ( unknown) date) (50-75) % unknown) (unknown) (no (unknown) (unknown) Neut % (Auto) 45.5 (units (unknown) date) L (50-75) % unknown) (unknown) (no (unknown) (unknown) No Action (units (unkn own) date) unknown) (unknown) (no (unknown) (unknown) Obesity (units (unkno wn) date) unknown) (unknown) (no (unknown) (unknown) Ondansetron HCl (units (unknown) date) (Ondansetron 4 Mg unknown) Odt) 4 mg SL NOW ONE (unknown) (no (unknown) (unknown) Ondansetron HCl (units (unknown) date) (Ondansetron 4 Mg/2 unknown) Ml Inj) 4 mg IV Q6HR PRN (unknown) (no (unknown) (unknown) Ordered: (units (unkno wn) date) unknown) (unknown) (no (unknown) (unknown) Orders (units (unkno wn) date) unknown) (unknown) (no (unknown) (unknown) Orientation/cloudi (units (unknown) date) ng of sensorium ?> unknown) 0 = Oriented, can do serial additions (unknown) (no (unknown) (unknown) Over the course of (units (unknown) date) the night we have unknown) called various other facilities and they (unknown) (no (unknown) (unknown) Overweight (units (unk nown) date) unknown) (unknown) (no (unknown) (unknown) Oxygen Delivery (units (unknown) date) Method Room Air unknown) 07/12/22 16:10 (unknown) (no (unknown) (unknown) Oxygen Delivery (units (unknown) date) Method Room Air unknown) Room Air (unknown) (no (unknown) (unknown) Oxygen Delivery (units (unknown) date) Method unknown) (unknown) (no (unknown) (unknown) PRN Reason: Nausea (units (unknown) date) And Vomiting unknown) (unknown) (no (unknown) (unknown) Paroxysmal sweats (units (unknown) date) ?> 0 = No sweat unknown) visible (unknown) (no (unknown) (unknown) Patient (units (unkno wn) date) Disposition: Xfer unknown[facility] (no (unknown) (unknown) Patient History (units (unknown) date) unknown) (unknown) (no (unknown) (unknown) Patient has (units (un known) date) allergy to Reglan unknown) and hydrocodone. She denies urinary frequency, (unknown) (no (unknown) (unknown) Patient's CIWA at (units (unknown) date) 2019 is 12, I unknown) ordered for her 2 more mg of lorazepam p.o., (unknown) (no (unknown) (unknown) Patient: (units (unkno wn) date) Sarah Connors R unknown) MR#: M (unknown) (no (unknown) (unknown) Patients with (units ( unknown) date) scores >= may unknown) require medication for withdrawal. (unknown) (no (unknown) (unknown) Pertinent lab (units ( unknown) date) findings reviewed: unknown) CBC is pertinent for mild leukopenia of 3.3, (unknown) (no (unknown) (unknown) Plt Count (units (unkn own) date) (150-400) X103/uL unknown) (unknown) (no (unknown) (unknown) Plt Count 226 (units ( unknown) date) (150-400) X103/uL unknown) (unknown) (no (unknown) (unknown) Point of Care (units ( unknown) date) Testing unknown) (unknown) (no (unknown) (unknown) Potassium (units (unkn own) date) (3.4-5.1) mmol/L unknown) (unknown) (no (unknown) (unknown) Potassium 3.9 (units ( unknown) date) (3.4-5.1) mmol/L unknown) (unknown) (no (unknown) (unknown) Test (units (unknown) date) Results Negative unknown) (unknown) (no (unknown) (unknown) Prescriptions: (units (unknown) date) unknown) (unknown) (no (unknown) (unknown) Previous Rx's (units ( unknown) date) unknown) (unknown) (no (unknown) (unknown) Psych: mental (units ( unknown) date) status is intact, unknown) patient has a normal affect although she is (unknown) (no (unknown) (unknown) Pulse Oximetry 97 (units (unknown) date) 100 unknown) (unknown) (no (unknown) (unknown) Pulse Oximetry 98 (units (unknown) date) 97 96 unknown) (unknown) (no (unknown) (unknown) Pulse Oximetry 99 (units (unknown) date) 07/12/22 16:10 unknown) (unknown) (no (unknown) (unknown) Pulse Oximetry 99 (units (unknown) date) unknown) (unknown) (no (unknown) (unknown) Pulse Rate 82 (units ( unknown) date) 07/12/22 16:10 unknown) (unknown) (no (unknown) (unknown) Pulse Rate 90 (units ( unknown) date) unknown) (unknown) (no (unknown) (unknown) Pulse Rate 94 H 92 (units (unknown) date) H 88 unknown) (unknown) (no (unknown) (unknown) Pulse Rate 97 H 87 (units (unknown) date) unknown) (unknown) (no (unknown) (unknown) Qualifiers: (units (un known) date) unknown) (unknown) (no (unknown) (unknown) Questions are (units ( unknown) date) addressed and there unknown) is agreement with the plan and for follow-up. (unknown) (no (unknown) (unknown) RBC (4.0-5.2) (units ( unknown) date) X106/uL unknown) (unknown) (no (unknown) (unknown) RBC 4.44 (4.0-5.2) (units (unknown) date) X106/uL unknown) (unknown) (no (unknown) (unknown) RDW (11.6-14.8) % (units (unknown) date) unknown) (unknown) (no (unknown) (unknown) RDW 17.3 H (units (unk nown) date) (11.6-14.8) % unknown) (unknown) (no (unknown) (unknown) RESULT SUMMARY: (units (unknown) date) unknown) (unknown) (no (unknown) (unknown) ROS Unobtainable: (units (unknown) date) All systems unknown) reviewed + are unremarkable except as noted in HPI (unknown) (no (unknown) (unknown) Referrals: (units (unk nown) date) unknown) (unknown) (no (unknown) (unknown) Related Data (units (u nknown) date) unknown) (unknown) (no (unknown) (unknown) Respiratory Rate (units (unknown) date) 14 07/12/22 16:10 unknown) (unknown) (no (unknown) (unknown) Respiratory Rate (units (unknown) date) 16 18 unknown) (unknown) (no (unknown) (unknown) Respiratory Rate (units (unknown) date) unknown) (unknown) (no (unknown) (unknown) Respiratory: (units (u nknown) date) normal effort, able unknown) to speak in complete sentences, without (unknown) (no (unknown) (unknown) Review of Systems (units (unknown) date) unknown) (unknown) (no (unknown) (unknown) Reviewed vitals (units (unknown) date) signs and nursing unknown) notes. (unknown) (no (unknown) (unknown) S/P myringotomy (units (unknown) date) with insertion of unknown) tube (unknown) (no (unknown) (unknown) SARS-CoV-2 (PCR) (units (unknown) date) (Negative) unknown) (unknown) (no (unknown) (unknown) SARS-CoV-2 (PCR) (units (unknown) date) Negative (Negative) unknown) (unknown) (no (unknown) (unknown) (spontaneous (units (unknown) date) vaginal delivery) unknown) (-09/05/18) (unknown) (no (unknown) (unknown) Salicylates < 1.0 (units (unknown) date) (<20) mg/dL unknown) (unknown) (no (unknown) (unknown) Salicylates (<20) (units (unknown) date) mg/dL unknown) (unknown) (no (unknown) (unknown) She was given a (units (unknown) date) couple water, a unknown) diet order was ordered however they may not (unknown) (no (unknown) (unknown) Signed By: (units (unk nown) date) unknown) (unknown) (no (unknown) (unknown) Skin: brisk (units (un known) date) capillary refill, unknown) without pallor or erythema (unknown) (no (unknown) (unknown) Smoker (units (unkno wn) date) unknown) (unknown) (no (unknown) (unknown) [place] and (units (unknown) date) [facility] in the unknown) past. She has been sober for a total of 18 (unknown) (no (unknown) (unknown) Smoking Status: (units (unknown) date) Former smoker unknown) (unknown) (no (unknown) (unknown) Social History (units (unknown) date) (Reviewed 07/12/22 unknown) @ 17:50 by Juliet Paz [facility]) (unknown) (no (unknown) (unknown) Social (units (unkno wn) date) considerations that unknown) may affect disposition: none (unknown) (no (unknown) (unknown) Sodium (137-145) (units (unknown) date) mmol/L unknown) (unknown) (no (unknown) (unknown) Sodium 140 (units (unk nown) date) (137-145) mmol/L unknown) (unknown) (no (unknown) (unknown) Sodium Chloride (units (unknown) date) (Normal Saline unknown) 0.9%) 1,000 mls @ 1,000 mls/hr IV BOLUS ONE (unknown) (no (unknown) (unknown) Source: patient (units (unknown) date) unknown) (unknown) (no (unknown) (unknown) Stated Complaint: (units (unknown) date) Stress/Depression unknown) (unknown) (no (unknown) (unknown) Stop: 07/12/22 (units (unknown) date) 17:33 unknown) (unknown) (no (unknown) (unknown) Stop: 07/12/22 (units (unknown) date) 17:45 unknown) (unknown) (no (unknown) (unknown) Stop: 07/12/22 (units (unknown) date) 18:28 unknown) (unknown) (no (unknown) (unknown) Stop: 07/12/22 (units (unknown) date) 18:31 unknown) (unknown) (no (unknown) (unknown) Stop: 07/12/22 (units (unknown) date) 19:25 unknown) (unknown) (no (unknown) (unknown) Stop: 07/12/22 (units (unknown) date) 20:03 unknown) (unknown) (no (unknown) (unknown) Stop: 07/12/22 (units (unknown) date) 20:17 unknown) (unknown) (no (unknown) (unknown) Substance Use (units ( unknown) date) Type: does not use unknown) (unknown) (no (unknown) (unknown) Surgical History (units (unknown) date) (Reviewed 07/12/22 unknown) @ 17:50 by Juliet Paz [facility]) (unknown) (no (unknown) (unknown) TSH (0.47-4.68) (units (unknown) date) uIU/mL unknown) (unknown) (no (unknown) (unknown) TSH 1.24 (units (unkno wn) date) (0.47-4.68) uIU/mL unknown) (unknown) (no (unknown) (unknown) Tactile (units (unkno wn) date) disturbances ?> 1 = unknown) Very mild itching, pin and needles, burning, or (unknown) (no (unknown) (unknown) Temperature 97.2 F (units (unknown) date) L 07/12/22 16:10 unknown) (unknown) (no (unknown) (unknown) Thiamine HCl (units (u nknown) date) (Thiamine 100 Mg unknown) Tablet) 100 mg PO NOW ONE (unknown) (no (unknown) (unknown) Thiamine HCl 200 (units (unknown) date) mg/ Sodium unknown) (Chloride) 102 mls @ 408 mls/hr IV NOW ONE (unknown) (no (unknown) (unknown) This is a (units (unkn own) date) 31-year-old female unknown) with history of alcohol abuse and appears to have (unknown) (no (unknown) (unknown) Time Seen by (units (u nknown) date) Provider: 07/12/22 unknown) 17:05 (unknown) (no (unknown) (unknown) Total Bilirubin (units (unknown) date) (0.2-1.3) mg/dL unknown) (unknown) (no (unknown) (unknown) Total Bilirubin (units (unknown) date) 0.4 (0.2-1.3) mg/dL unknown) (unknown) (no (unknown) (unknown) Total Protein (units ( unknown) date) (6.3-8.2) g/dL unknown) (unknown) (no (unknown) (unknown) Total Protein 7.3 (units (unknown) date) (6.3-8.2) g/dL unknown) (unknown) (no (unknown) (unknown) Tremor ?> 1 = Not (units (unknown) date) visible, but can be unknown) felt fingertip to fingertip (unknown) (no (unknown) (unknown) U Benzodiazepines (units (unknown) date) Scrn (Negative) unknown) (unknown) (no (unknown) (unknown) U Benzodiazepines (units (unknown) date) Scrn Negative unknown) (Negative) (unknown) (no (unknown) (unknown) U Marijuana (THC) (units (unknown) date) Screen (Negative) unknown) (unknown) (no (unknown) (unknown) U Marijuana (THC) (units (unknown) date) Screen Negative unknown) (Negative) (unknown) (no (unknown) (unknown) U Methamphetamines (units (unknown) date) Scrn (Negative) unknown) (unknown) (no (unknown) (unknown) U Methamphetamines (units (unknown) date) Scrn Negative unknown) (Negative) (unknown) (no (unknown) (unknown) U Opiates 300ng/mL (units (unknown) date) cut (Negative) unknown) (unknown) (no (unknown) (unknown) U Opiates 300ng/mL (units (unknown) date) cut Negative unknown) (Negative) (unknown) (no (unknown) (unknown) U Tricyclic (units (un known) date) Antidepress unknown) (Negative) (unknown) (no (unknown) (unknown) U Tricyclic (units (un known) date) Antidepress unknown) Negative (Negative) (unknown) (no (unknown) (unknown) Ur Amphetamines (units (unknown) date) Screen (Negative) unknown) (unknown) (no (unknown) (unknown) Ur Amphetamines (units (unknown) date) Screen Negative unknown) (Negative) (unknown) (no (unknown) (unknown) Ur Barbiturates (units (unknown) date) Screen (Negative) unknown) (unknown) (no (unknown) (unknown) Ur Barbiturates (units (unknown) date) Screen Negative unknown) (Negative) (unknown) (no (unknown) (unknown) Ur Culture (units (unk nown) date) Indicated? Specimen unknown) cultured (unknown) (no (unknown) (unknown) Ur Culture (units (unk nown) date) Indicated? unknown) (unknown) (no (unknown) (unknown) Ur MDMA Scrn (units (u nknown) date) (Ecstasy) unknown) (Negative) (unknown) (no (unknown) (unknown) Ur MDMA Scrn (units (u nknown) date) (Ecstasy) Negative unknown) (Negative) (unknown) (no (unknown) (unknown) Ur Oxycodone (units (u nknown) date) Screen (Negative) unknown) (unknown) (no (unknown) (unknown) Ur Oxycodone (units (u nknown) date) Screen Negative unknown) (Negative) (unknown) (no (unknown) (unknown) Ur Phencyclidine (units (unknown) date) Scrn (Negative) unknown) (unknown) (no (unknown) (unknown) Ur Phencyclidine (units (unknown) date) Scrn Negative unknown) (Negative) (unknown) (no (unknown) (unknown) Ur Squamous Epith (units (unknown) date) Cells (0-5/HPF) unknown) (unknown) (no (unknown) (unknown) Ur Squamous Epith (units (unknown) date) Cells 1-5 /hpf unknown) (0-5/HPF) (unknown) (no (unknown) (unknown) Urine Bacteria (units (unknown) date) (None) unknown) (unknown) (no (unknown) (unknown) Urine Bacteria (units (unknown) date) Many (>30) H (None) unknown) (unknown) (no (unknown) (unknown) Urine Cocaine (units ( unknown) date) Screen (Negative) unknown) (unknown) (no (unknown) (unknown) Urine Cocaine (units ( unknown) date) Screen Negative unknown) (Negative) (unknown) (no (unknown) (unknown) Urine Dip (units (unkn own) date) unknown) (unknown) (no (unknown) (unknown) Urine Methadone (units (unknown) date) Screen (Negative) unknown) (unknown) (no (unknown) (unknown) Urine Methadone (units (unknown) date) Screen Negative unknown) (Negative) (unknown) (no (unknown) (unknown) Urine RBC (units (unkn own) date) (0-5/HPF) unknown) (unknown) (no (unknown) (unknown) Urine RBC 1-5/hpf (units (unknown) date) (0-5/HPF) unknown) (unknown) (no (unknown) (unknown) Urine Specific (units (unknown) date) [place] 1.015 unknown) (unknown) (no (unknown) (unknown) Urine WBC (units (unkn own) date) (0-5/HPF) unknown) (unknown) (no (unknown) (unknown) Urine WBC 1-5/hpf (units (unknown) date) (0-5/HPF) unknown) (unknown) (no (unknown) (unknown) Urine microscopy (units (unknown) date) with many bacteria, unknown) pending for culture, will treat for acute (unknown) (no (unknown) (unknown) Visual (units (unkno wn) date) disturbances ?> 1 = unknown) Very mild sensitivity (unknown) (no (unknown) (unknown) Vital Signs - 8 hr (units (unknown) date) unknown) (unknown) (no (unknown) (unknown) Vital Signs (units (un known) date) unknown) (unknown) (no (unknown) (unknown) Vital signs: (units (u nknown) date) unknown) (unknown) (no (unknown) (unknown) WBC (4.5-11.0) (units (unknown) date) X103/uL unknown) (unknown) (no (unknown) (unknown) WBC 3.3 L (units (unkn own) date) (4.5-11.0) X103/uL unknown) (unknown) (no (unknown) (unknown) [1900] ([place]) (units (unknown) date) Patient received in unknown) sign out [employer]. I have reviewed the (unknown) (no (unknown) (unknown) [Embedded Image (units (unknown) date) Not Available] unknown) (unknown) (no (unknown) (unknown) [METOCLOPRAMIDE] (units (unknown) date) unknown) (unknown) (no (unknown) (unknown) acceptable. She is (units (unknown) date) nauseated, without unknown) vomiting, received Zofran previously and (unknown) (no (unknown) (unknown) acetaminophen 325 (units (unknown) date) mg tablet 325 mg PO unknown) Q6H PRN pain #20 tabs 02/05/20 (unknown) (no (unknown) (unknown) acetaminophen (units ( unknown) date) [Tylenol] 325 mg unknown) tablet (unknown) (no (unknown) (unknown) alcohol in 300s, (units (unknown) date) she was last here unknown) in the emergency department in May of (unknown) (no (unknown) (unknown) alcohol intake (units (unknown) date) frequency: 3 or unknown) more drinks per day (unknown) (no (unknown) (unknown) alcohol intake: (units (unknown) date) former unknown) (unknown) (no (unknown) (unknown) alcohol level (units ( unknown) date) below 0.08 to be unknown) considered for placement there. (unknown) (no (unknown) (unknown) and below (units (unkn own) date) unknown) (unknown) (no (unknown) (unknown) and she drinking (units (unknown) date) daily since this unknown) happened. She wants rehab. She has been (unknown) (no (unknown) (unknown) anxious, (units (unkno wn) date) intoxicated and now unknown) withdrawing. pleasant and cooperative (unknown) (no (unknown) (unknown) are currently no (units (unknown) date) available beds. unknown) Patient resting comfortably (unknown) (no (unknown) (unknown) arrhythmia, or (units (unknown) date) acute ischemic unknown) changes. (unknown) (no (unknown) (unknown) at extension and (units (unknown) date) states that she unknown) feels symptoms of alcohol withdrawal. Denies (unknown) (no (unknown) (unknown) being depressed at (units (unknown) date) this time, CIWA is unknown) an 8. (unknown) (no (unknown) (unknown) bpm with rightward (units (unknown) date) axis and normal unknown) intervals. No STEMI, ST segment changes, (unknown) (no (unknown) (unknown) clinical course (units (unknown) date) and performed an unknown) independent history and physical exam. Patient (unknown) (no (unknown) (unknown) current (units (unkno wn) date) occupational unknown) exposures/hazards: Yes (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 with Pandemic ) (unknown) (no (unknown) (unknown) cystitis without (units (unknown) date) hematuria unknown) (unknown) (no (unknown) (unknown) cystitis (units (unkno wn) date) unknown) (unknown) (no (unknown) (unknown) cystitis, she is (units (unknown) date) p.o. tolerant, unknown) still pending lab work (unknown) (no (unknown) (unknown) deliver since it (units (unknown) date) is after 17:00 and unknown) the diet order was ordered at 17:30. Samira (unknown) (no (unknown) (unknown) detox 11 times, (units (unknown) date) states that it has unknown) taking Antabuse, Librium, Ativan, she denies (unknown) (no (unknown) (unknown) detox as well. (units (unknown) date) unknown) (unknown) (no (unknown) (unknown) diarrhea or (units (un known) date) current stool unknown) changes. (unknown) (no (unknown) (unknown) diphenhydramine (units (unknown) [...] mg unknown) capsule (unknown) (no (unknown) (unknown) draw her labs (units ( unknown) date) unknown) (unknown) (no (unknown) (unknown) education level: (units (unknown) date) college unknown) (unknown) (no (unknown) (unknown) electrolyte (units (un known) date) abnormalities. unknown) (unknown) (no (unknown) (unknown) emergency (units (unkn own) date) department on unknown) 06/18/2022 and a few days prior to that with a blood (unknown) (no (unknown) (unknown) extremities (units (un known) date) unknown) (unknown) (no (unknown) (unknown) renee/zoroastrianism: (units (unknown) date) Buddhist unknown) (unknown) (no (unknown) (unknown) fidgeting (units (unkn own) date) unknown) (unknown) (no (unknown) (unknown) fluid, EtOH, and (units (unknown) date) CIWA, ordered 2 mg unknown) of IV lorazepam for patient's symptoms, (unknown) (no (unknown) (unknown) for alcohol (units (un known) date) related complaints unknown) through 2019, and she presented to the [facility] (unknown) (no (unknown) (unknown) from social work (units (unknown) date) is aware and unknown) pending her lab work to arrange for inpatient (unknown) (no (unknown) (unknown) go to detox. She (units (unknown) date) is currently unknown) intoxicated endorses symptoms of alcohol (unknown) (no (unknown) (unknown) her urine (units (unkn own) date) microscopy came unknown) back positive for many bacteria, will treat for acute (unknown) (no (unknown) (unknown) household members: (units (unknown) date) spouse and children unknown) (unknown) (no (unknown) (unknown) hydrated. (units (unkn own) date) unknown) (unknown) (no (unknown) (unknown) hydrocodone (units (un known) date) [HYDROCODONE] unknown) AdvReac Unknown VOMITING Verified 07/12/22 16:18 (unknown) (no (unknown) (unknown) ibuprofen 600 mg (units (unknown) date) Tablet unknown) (unknown) (no (unknown) (unknown) ibuprofen 600 mg (units (unknown) date) tablet 600 mg PO unknown) Q6HR PRN Pain, Mild 07/04/20 (unknown) (no (unknown) (unknown) intoxicated, (units (u nknown) date) pleasant, unknown) interactive and comfortable although active, anxious and (unknown) (no (unknown) (unknown) is 338, COVID PCR (units (unknown) date) was negative, drug unknown) screen is negative for all tested agents, (unknown) (no (unknown) (unknown) is allergic to (units ( unknown) date) Reglan, will dose unknown) with another 5 mg of Zofran, no QT prolongation (unknown) (no (unknown) (unknown) knowing if she is (units (unknown) date) had phenobarbital unknown) in the past. (unknown) (no (unknown) (unknown) limited history (units (unknown) date) currently due to unknown) intoxication. She states that she is recently (unknown) (no (unknown) (unknown) lorazepam at 2 mg (units (unknown) date) for this. unknown) (unknown) (no (unknown) (unknown) marital status: (units (unknown) date) unknown) (unknown) (no (unknown) (unknown) metoclopramide (units (unknown) date) Allergy Mild unknown) RASH/HIVES Verified 07/12/22 16:18 (unknown) (no (unknown) (unknown) mild anemia but (units (unknown) date) improved from her unknown) prior with H+H of 11.5 and 35.3, no evidence (unknown) (no (unknown) (unknown) months. She denies (units (unknown) date) any recent unknown) injuries, denies chance of , denies any (unknown) (no (unknown) (unknown) nausea vomiting or (units (unknown) date) abdominal pain at unknown) this time. 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 (units (u nknown) date) Ativan for her unknown) symptoms and ask our into call lab to come up and (unknown) (no (unknown) (unknown) other ingestions, (units (unknown) date) is pleasant, unknown) seeking help with her intoxication and wishes to (unknown) (no (unknown) (unknown) patient's (units (unknown) date) is at the bedside unknown) offering support, she raises nausea, another (unknown) (no (unknown) (unknown) prenat.vits,otis,mi (units (unknown) date) [id number] 1 tab unknown) PO DAILY 12/30/19 07/03/20 (unknown) (no (unknown) (unknown) prenat.vits,otis,mi (units (unknown) date) [id number] Tablet unknown) (unknown) (no (unknown) (unknown) relapsed due to a (units (unknown) date) divorce with her unknown) . She used to be a frequent visitor (unknown) (no (unknown) (unknown) resting (units (unkno wn) date) comfortably, unknown) currently pursuing placement at [facility] (unknown) (no (unknown) (unknown) scores of 10 or (units (unknown) date) less by 4 unknown) hours a piece and must also have blood (unknown) (no (unknown) (unknown) second hand (units (un known) date) exposure: No unknown) (growing up as a child - not currently) (unknown) (no (unknown) (unknown) significant tremor (units (unknown) date) or tongue unknown) fasciculation, she has a mild tremor with her arms (unknown) (no (unknown) (unknown) social work and (units (unknown) date) orders are pending unknown) (unknown) (no (unknown) (unknown) special renee (units ( unknown) date) needs: No unknown) (unknown) (no (unknown) (unknown) substance abuse, (units (unknown) date) alcohol unknown) intoxication, psychosis, mood disorder, depression (unknown) (no (unknown) (unknown) substance use (units ( unknown) date) type: does not use unknown) (unknown) (no (unknown) (unknown) tablet vomiting (units (unknown) date) #14 tabs unknown) (unknown) (no (unknown) (unknown) tablet vomiting (units (unknown) date) #20 tabs unknown) (unknown) (no (unknown) (unknown) tablet vomiting (units (unknown) date) #30 tabs unknown) (unknown) (no (unknown) (unknown) tenderness or (units ( unknown) date) exquisite unknown) tenderness with exam. (unknown) (no (unknown) (unknown) that she drinks (units (unknown) date) vodka and admits to unknown) drinking heavily today, states that she took (unknown) (no (unknown) (unknown) the bottle upside (units (unknown) date) down and started unknown) checking from it. She states that she drank (unknown) (no (unknown) (unknown) thyroid studies (units (unknown) date) are still pending. unknown) No significant findings to her CMP. No (unknown) (no (unknown) (unknown) tramadol 50 mg (units (unknown) date) tablet 50 mg PO Q6H unknown) PRN pain #10 tabs 06/12/22 (unknown) (no (unknown) (unknown) tramadol 50 mg (units (unknown) date) tablet unknown) (unknown) (no (unknown) (unknown) tremors, no (units (un known) date) tachycardia, her unknown) CIWA is currently 10, ordered another p.o. dose of (unknown) (no (unknown) (unknown) urgency or flank (units (unknown) date) pain, endorses unknown) nausea without vomiting. Patient has been to (unknown) (no (unknown) (unknown) well as prior (units ( unknown) date) records if unknown) available. (unknown) (no (unknown) (unknown) wheezing, stridor, (units (unknown) date) or abnormal breath unknown) sounds. No retractions or tachypnea. (unknown) (no (unknown) (unknown) withdrawal. (units (un known) date) Patient states that unknown) she takes Seroquel 300 mg at night as well as Result panel [id number] (unknown) (no (unknown) (unknown) (no value) (units (unk nown) date) unknown) (unknown) (no (unknown) (unknown) <Juliet Paz, (units (unknown) date) LYUDMILA - Last Filed: unknown) 07/12/22 20:27> (unknown) (no (unknown) (unknown) <Reinaldo Arthur DO (units (unknown) date) - Last Filed: unknown) 07/13/22 06:08> (unknown) (no (unknown) (unknown) (1-3) #30 tabs (units (unknown) date) unknown) (unknown) (no (unknown) (unknown) (Benadryl) caps (units (unknown) date) unknown) (unknown) (no (unknown) (unknown) (Colace) (units (unkno wn) date) unknown) (unknown) (no (unknown) (unknown) (Tylenol) (units (unkn own) date) unknown) (unknown) (no (unknown) (unknown) [id number] (units (unkn own) date) unknown) (unknown) (no (unknown) (unknown) 01:28 07/13/22 (units (unknown) date) unknown) (unknown) (no (unknown) (unknown) 01:50 (units (unkno wn) date) unknown) (unknown) (no (unknown) (unknown) 02:00 07/13/22 (units (unknown) date) unknown) (unknown) (no (unknown) (unknown) 02:14 07/13/22 (units (unknown) date) unknown) (unknown) (no (unknown) (unknown) 02:14 (units (unkno wn) date) unknown) (unknown) (no (unknown) (unknown) 02:30 (units (unkno wn) date) unknown) (unknown) (no (unknown) (unknown) 07/12/22 07/12/22 (units (unknown) date) 07/12/22 unknown) Range/Units (unknown) (no (unknown) (unknown) 07/12/22 19:15 (units (unknown) date) unknown) (unknown) (no (unknown) (unknown) 07/12/22 (units (unkno wn) date) unknown) (unknown) (no (unknown) (unknown) 07/13/22 (units (unkno wn) date) unknown) (unknown) (no (unknown) (unknown) 0530 -patient (units (u nknown) date) beginning to feel a unknown) bit agitated and restless, she is tachycardic. (unknown) (no (unknown) (unknown) 1 tab PO DAILY (units (unknown) date) unknown) (unknown) (no (unknown) (unknown) 100 mg PO BID Qty: (units (unknown) date) 30 0RF unknown) (unknown) (no (unknown) (unknown) 16:32 16:32 16:32 (units (unknown) date) unknown) (unknown) (no (unknown) (unknown) 1836 patient still (units (unknown) date) does not have an unknown) IV, has not received any IV fluid her (unknown) (no (unknown) (unknown) 1900 still no IV, (units (unknown) date) patient is p.o. unknown) challenging, she received her p.o. lorazepam, (unknown) (no (unknown) (unknown) 1929, patient now (units (unknown) date) feels depressed, unknown) she is lying in bed, feeling bad, has (unknown) (no (unknown) (unknown) 19:15 19:15 19:15 (units (unknown) date) unknown) (unknown) (no (unknown) (unknown) 1999 patient is (units (unknown) date) feeling better now, unknown) her lab work is starting to return and ETOH (unknown) (no (unknown) (unknown) 2002 patient (units (u nknown) date) requests to take unknown) her home dosing of Seroquel 300 mg, this is (unknown) (no (unknown) (unknown) 2022 with similar (units (unknown) date) symptoms. She comes unknown) in complaining of needing help, states (unknown) (no (unknown) (unknown) 0 -smoker point (units (unknown) date) called back and unknown) states that patient must have free CIWA (unknown) (no (unknown) (unknown) 23:30 07/13/22 (units (unknown) date) unknown) (unknown) (no (unknown) (unknown) 25 mg PO BEDTIME (units (unknown) date) PRN (Reason: unknown) insomnia) Qty: 20 0RF (unknown) (no (unknown) (unknown) 325 mg PO Q6H PRN (units (unknown) date) (Reason: pain) Qty: unknown) 20 0RF (unknown) (no (unknown) (unknown) 4 Zofran was (units (u nknown) date) ordered. So has not unknown) been given, patient is signed out to (unknown) (no (unknown) (unknown) 4 mg PO [...] Qty: 30 0RF (unknown) (no (unknown) (unknown) 750 mL of time. (units (unknown) date) She just she has unknown) nothing to do but relapsed. This 3 weeks ago (unknown) (no (unknown) (unknown) 9 points (units (unkno wn) date) unknown) (unknown) (no (unknown) (unknown) ALT (<35) IU/L (units (unknown) date) unknown) (unknown) (no (unknown) (unknown) ALT 21 (<35) IU/L (units (unknown) date) unknown) (unknown) (no (unknown) (unknown) AST (14-36) IU/L (units (unknown) date) unknown) (unknown) (no (unknown) (unknown) AST 67 H (14-36) (units (unknown) date) IU/L unknown) (unknown) (no (unknown) (unknown) Acetaminophen < 10 (units (unknown) date) (10-30) ug/mL unknown) (unknown) (no (unknown) (unknown) Acetaminophen (units ( unknown) date) (10-30) ug/mL unknown) (unknown) (no (unknown) (unknown) Acute cystitis (units (unknown) date) unknown) (unknown) (no (unknown) (unknown) Admin: 07/12/22 (units (unknown) date) 19:47 Dose: 500 mg unknown) (unknown) (no (unknown) (unknown) Age/Sex: 31 / F (units (unknown) date) unknown) (unknown) (no (unknown) (unknown) Agitation ?> 2 = (units (unknown) date) (More severe unknown) symptoms) (unknown) (no (unknown) (unknown) Albumin (3.5-5.0) (units (unknown) date) g/dL unknown) (unknown) (no (unknown) (unknown) Albumin 4.3 (units (un known) date) (3.5-5.0) g/dL unknown) (unknown) (no (unknown) (unknown) Albumin/Globulin (units (unknown) date) Ratio (1.0-2.8) unknown) (unknown) (no (unknown) (unknown) Albumin/Globulin (units (unknown) date) Ratio 1.4 (1.0-2.8) unknown) (unknown) (no (unknown) (unknown) Alcohol use (units (un known) date) disorder unknown) (unknown) (no (unknown) (unknown) Alcoholism (units (unk nown) date) unknown) (unknown) (no (unknown) (unknown) Alkaline (units (unkno wn) date) Phosphatase unknown) (38-126) U/L (unknown) (no (unknown) (unknown) Alkaline (units (unkno wn) date) Phosphatase 98 unknown) (38-126) U/L (unknown) (no (unknown) (unknown) Allergies (units (unkn own) date) unknown) (unknown) (no (unknown) (unknown) Allergy/AdvReac (units (unknown) date) Type Severity unknown) Reaction Status Date / Time (unknown) (no (unknown) (unknown) Anemia (-2018) (units (unknown) date) unknown) (unknown) (no (unknown) (unknown) Anxiety ?> 2 = (units (unknown) date) (More severe unknown) symptoms) (unknown) (no (unknown) (unknown) Auditory (units (unkno wn) date) disturbances ?> 1 = unknown) Very mild harshness or ability to frighten (unknown) (no (unknown) (unknown) BUN (7-17) mg/dL (units (unknown) date) unknown) (unknown) (no (unknown) (unknown) BUN 9 (7-17) mg/dL (units (unknown) date) unknown) (unknown) (no (unknown) (unknown) BUN/Creatinine (units (unknown) date) Ratio (6-22) unknown) (unknown) (no (unknown) (unknown) BUN/Creatinine (units (unknown) date) Ratio 11.0 (6-22) unknown) (unknown) (no (unknown) (unknown) Baso # (Auto) (units ( unknown) date) (0-100) /uL unknown) (unknown) (no (unknown) (unknown) Baso # (Auto) 0 (units (unknown) date) (0-100) /uL unknown) (unknown) (no (unknown) (unknown) Baso % (Auto) (units ( unknown) date) (0-2) % unknown) (unknown) (no (unknown) (unknown) Baso % (Auto) 0.9 (units (unknown) date) (0-2) % unknown) (unknown) (no (unknown) (unknown) Bedside Urine (units ( unknown) date) Bilirubin - unknown) Negative (unknown) (no (unknown) (unknown) Bedside Urine (units ( unknown) date) Glucose Negative unknown) (unknown) (no (unknown) (unknown) Bedside Urine (units ( unknown) date) Ketone - Negative unknown) (unknown) (no (unknown) (unknown) Bedside Urine (units ( unknown) date) Leukocytes - unknown) Negative (unknown) (no (unknown) (unknown) Bedside Urine (units ( unknown) date) Nitrite + Positive unknown) (unknown) (no (unknown) (unknown) Bedside Urine (units ( unknown) date) Occult Blood - unknown) Negative (unknown) (no (unknown) (unknown) Bedside Urine (units ( unknown) date) Protein - Negative unknown) (unknown) (no (unknown) (unknown) Bedside Urine (units ( unknown) date) Urobilinogen - unknown) Negative (unknown) (no (unknown) (unknown) Bedside Urine pH (units (unknown) date) 6.0 unknown) (unknown) (no (unknown) (unknown) Blood Pressure (units (unknown) date) 102/59 L unknown) (unknown) (no (unknown) (unknown) Blood Pressure (units (unknown) date) 112/62 07/12/22 unknown) 16:10 (unknown) (no (unknown) (unknown) Blood Pressure (units (unknown) date) 99/58 L unknown) (unknown) (no (unknown) (unknown) Blood Pressure (units (unknown) date) [Left Arm] 95/53 L unknown) (unknown) (no (unknown) (unknown) Blood Pressure (units (unknown) date) [Left Arm] unknown) (unknown) (no (unknown) (unknown) Blood Pressure (units (unknown) date) unknown) (unknown) (no (unknown) (unknown) CIWA is now worse (units (unknown) date) and she has unknown) tremors, anxiety is worsening and agitation, (unknown) (no (unknown) (unknown) CIWA-Ar for (units (un known) date) Alcohol Withdrawal unknown) from [facility] on 07/12/2022 (unknown) (no (unknown) (unknown) Calcium (8.4-10.2) (units (unknown) date) mg/dL unknown) (unknown) (no (unknown) (unknown) Calcium 8.0 L (units ( unknown) date) (8.4-10.2) mg/dL unknown) (unknown) (no (unknown) (unknown) Carbon Dioxide (units (unknown) date) (22-32) mmol/L unknown) (unknown) (no (unknown) (unknown) Carbon Dioxide 23 (units (unknown) date) (22-32) mmol/L unknown) (unknown) (no (unknown) (unknown) Cardiovascular: (units (unknown) date) Tachycardic rate unknown) and rhythm, no peripheral edema, warm (unknown) (no (unknown) (unknown) Cephalexin HCl (units (unknown) date) (Cephalexin 250 Mg unknown) Capsule) 500 mg PO Q6H SANDY (unknown) (no (unknown) (unknown) Chief Complaint: (units (unknown) date) Alcohol unknown) intoxication, seeking detox (unknown) (no (unknown) (unknown) Chief Complaint: (units (unknown) date) Toxicology Problem unknown) (unknown) (no (unknown) (unknown) Chloride (98-107) (units (unknown) date) mmol/L unknown) (unknown) (no (unknown) (unknown) Chloride 104 (units (u nknown) date) (98-107) mmol/L unknown) (unknown) (no (unknown) (unknown) Clinical (units (unkno wn) date) Impression: unknown) (unknown) (no (unknown) (unknown) Clinical decision (units (unknown) date) rules or scores unknown) evaluated: CIWA of 9 at 1753 (unknown) (no (unknown) (unknown) Course of care: (units (unknown) date) Patient is a unknown) difficult IV stick, ordered IV with lab work, (unknown) (no (unknown) (unknown) Course (units (unkno wn) date) unknown) (unknown) (no (unknown) (unknown) Creatinine (units (unk nown) date) (0.52-1.04) mg/dL unknown) (unknown) (no (unknown) (unknown) Creatinine 0.82 (units (unknown) date) (0.52-1.04) mg/dL unknown) (unknown) (no (unknown) (unknown) Samantha Arthur gave her (units (unknown) date) grilled cheese, unknown) soup, some juice and encouraged her to stay (unknown) (no (unknown) (unknown) : 1990 (units (unknown) date) Acct:[id number] unknown) (unknown) (no (unknown) (unknown) Date of Service: (units (unknown) date) 07/12/22 unknown) (unknown) (no (unknown) (unknown) Departure (units (unkn own) date) unknown) (unknown) (no (unknown) (unknown) Differential (units (u nknown) date) diagnoses include unknown) but are not limited to: Alcohol withdrawal, (unknown) (no (unknown) (unknown) Discharge Plan (units (unknown) date) unknown) (unknown) (no (unknown) (unknown) Discontinued (units (u nknown) date) Medications unknown) (unknown) (no (unknown) (unknown) Documented By: AP (units (unknown) date) unknown) (unknown) (no (unknown) (unknown) Documented By: KB (units (unknown) date) unknown) (unknown) (no (unknown) (unknown) Documented By: OW (units (unknown) date) unknown) (unknown) (no (unknown) (unknown) ECG Data (units (unkno wn) date) unknown) (unknown) (no (unknown) (unknown) EKG independently (units (unknown) date) reviewed by myself unknown) at 1830 reveals normal sinus rhythm at 72 (unknown) (no (unknown) (unknown) ER Physician: (units ( unknown) date) Reinaldo Arthur D.O. unknown) (unknown) (no (unknown) (unknown) Emergency Report (units (unknown) date) unknown) (unknown) (no (unknown) (unknown) Eos # (Auto) (units (u nknown) date) (0-450) /uL unknown) (unknown) (no (unknown) (unknown) Eos # (Auto) 0 (units (unknown) date) (0-450) /uL unknown) (unknown) (no (unknown) (unknown) Eos % (Auto) (2-4) (units (unknown) date) % unknown) (unknown) (no (unknown) (unknown) Eos % (Auto) 0.3 L (units (unknown) date) (2-4) % unknown) (unknown) (no (unknown) (unknown) Esterase (units (unkno wn) date) unknown) (unknown) (no (unknown) (unknown) Estimated GFR > 60 (units (unknown) date) (>60) mL/min unknown) (unknown) (no (unknown) (unknown) Estimated GFR (units ( unknown) date) (>60) mL/min unknown) (unknown) (no (unknown) (unknown) Ethyl Alcohol ( - (units (unknown) date) 10) mg/dL unknown) (unknown) (no (unknown) (unknown) Ethyl Alcohol 338 (units (unknown) date) H ( - 10) mg/dL unknown) (unknown) (no (unknown) (unknown) Exam Narrative: (units (unknown) date) unknown) (unknown) (no (unknown) (unknown) Exam (units (unkno wn) date) unknown) (unknown) (no (unknown) (unknown) Family History (units (unknown) date) (Reviewed 07/12/22 unknown) @ 17:50 by LYUDMILA Do) (unknown) (no (unknown) (unknown) Family/Other (units (u nknown) date) Alcoholism unknown) (unknown) (no (unknown) (unknown) Family/Other (units (u nknown) date) Diabetes mellitus unknown) (unknown) (no (unknown) (unknown) Father Alcoholism (units (unknown) date) unknown) (unknown) (no (unknown) (unknown) Tonia Schneider MD (units (unknown) date) [Primary Care unknown) Provider] (unknown) (no (unknown) (unknown) Folic Acid (Folic (units (unknown) date) Acid 1 Mg Tablet) 1 unknown) mg PO DAILY SANDY (unknown) (no (unknown) (unknown) Free T4 (units (unkno wn) date) (0.78-2.19) ng/dL unknown) (unknown) (no (unknown) (unknown) Free T4 0.93 (units (u nknown) date) (0.78-2.19) ng/dL unknown) (unknown) (no (unknown) (unknown) GI: abdomen soft, (units (unknown) date) nontender to unknown) palpation, nondistended, without masses, rebound (unknown) (no (unknown) (unknown) General (units (unkno wn) date) unknown) (unknown) (no (unknown) (unknown) General: (units (unkno wn) date) cooperative, unknown) comfortable, in no acute distress, well groomed, appears (unknown) (no (unknown) (unknown) Globulin (1.7-4.1) (units (unknown) date) g/dL unknown) (unknown) (no (unknown) (unknown) Globulin 3.0 (units (u nknown) date) (1.7-4.1) g/dL unknown) (unknown) (no (unknown) (unknown) Glucose (70-100) (units (unknown) date) mg/dL unknown) (unknown) (no (unknown) (unknown) Glucose 111 H (units ( unknown) date) (70-100) mg/dL [...] extraction (-2013) unknown) (unknown) (no (unknown) (unknown) HEENT: symmetrical (units (unknown) date) facial expressions, unknown) dry mucous membranes (unknown) (no (unknown) (unknown) HPI - Alcohol (units ( unknown) date) unknown) (unknown) (no (unknown) (unknown) HPI narrative: (units (unknown) date) unknown) (unknown) (no (unknown) (unknown) Hct (36-46) % (units ( unknown) date) unknown) (unknown) (no (unknown) (unknown) Hct 35.3 L (36-46) (units (unknown) date) % unknown) (unknown) (no (unknown) (unknown) Headache/fullness (units (unknown) date) in head ?> 1 = Very unknown) mild (unknown) (no (unknown) (unknown) Hematuria (units (unkn own) date) presence: without unknown) hematuria Qualified Code(s): N30.00 - Acute (unknown) (no (unknown) (unknown) Hgb (12.0-16.0) (units (unknown) date) g/dL unknown) (unknown) (no (unknown) (unknown) Hgb 11.5 L (units (unk nown) date) (12.0-16.0) g/dL unknown) (unknown) (no (unknown) (unknown) History of Present (units (unknown) date) Illness unknown) (unknown) (no (unknown) (unknown) Home Medications (units (unknown) date) unknown) (unknown) (no (unknown) (unknown) I have (units (unkno wn) date) independently unknown) reviewed the patient's vital signs and nursing notes as (unknown) (no (unknown) (unknown) INPUTS: (units (unkno wn) date) unknown) (unknown) (no (unknown) (unknown) Independent (units (un known) date) historian: Patient unknown) (unknown) (no (unknown) (unknown) Initial Vital (units ( unknown) date) Signs unknown) (unknown) (no (unknown) (unknown) Initial Vital (units ( unknown) date) Signs: unknown) (unknown) (no (unknown) (unknown) Insomnia (units (unkno wn) date) unknown) (unknown) (no (unknown) (unknown) Interpretation: (units (unknown) date) unknown) (unknown) (no (unknown) (unknown) [facility] (units (unknown) date) [address] unknown) [place] [address] (unknown) (no (unknown) (unknown) Lab Data (units (unkno wn) date) unknown) (unknown) (no (unknown) (unknown) Lab Results (units (un known) date) unknown) (unknown) (no (unknown) (unknown) Labs: (units (unkno wn) date) unknown) (unknown) (no (unknown) (unknown) Last Admin: (units (un known) date) 07/12/22 18:39 unknown) Dose: 4 mg (unknown) (no (unknown) (unknown) Last Admin: (units (un known) date) 07/12/22 18:40 unknown) Dose: 1 mg (unknown) (no (unknown) (unknown) Last Admin: (units (un known) date) 07/12/22 18:56 unknown) Dose: Not Given (unknown) (no (unknown) (unknown) Last Admin: (units (un known) date) 07/12/22 19:48 unknown) Dose: 2 mg (unknown) (no (unknown) (unknown) Last Admin: (units (un known) date) 07/12/22 19:49 unknown) Dose: 100 mg (unknown) (no (unknown) (unknown) Last Admin: (units (un known) date) 07/13/22 02:11 unknown) Dose: 500 mg (unknown) (no (unknown) (unknown) Last Admin: (units (un known) date) 07/13/22 03:36 unknown) Dose: 2 mg (unknown) (no (unknown) (unknown) Last Admin: (units (un known) date) 07/13/22 06:01 unknown) Dose: Not Given (unknown) (no (unknown) (unknown) Librium but she (units (unknown) date) does not have this unknown) medicine with her, she only has the Seroquel. (unknown) (no (unknown) (unknown) Lorazepam (units (unkn own) date) (Lorazepam 0.5 Mg unknown) Tablet) 1 mg PO NOW ONE (unknown) (no (unknown) (unknown) Lorazepam (units (unkn own) date) (Lorazepam 0.5 Mg unknown) Tablet) 2 mg PO NOW ONE (unknown) (no (unknown) (unknown) Lorazepam (units (unkn own) date) (Lorazepam 2 Mg/Ml unknown) Inj) 2 mg IV NOW ONE (unknown) (no (unknown) (unknown) Lymph # (Auto) (units (unknown) date) ([id number]) /uL unknown) (unknown) (no (unknown) (unknown) Lymph # (Auto) (units (unknown) date) 1700 ([id number]) unknown) /uL (unknown) (no (unknown) (unknown) Lymph % (Auto) (units (unknown) date) (25-40) % unknown) (unknown) (no (unknown) (unknown) Lymph % (Auto) (units (unknown) date) 50.6 H (25-40) % unknown) (unknown) (no (unknown) (unknown) MCH (26-34) PG (units (unknown) date) unknown) (unknown) (no (unknown) (unknown) MCH 26.0 (26-34) (units (unknown) date) PG unknown) (unknown) (no (unknown) (unknown) MCHC (30-36) % (units (unknown) date) unknown) (unknown) (no (unknown) (unknown) MCHC 32.7 (30-36) (units (unknown) date) % unknown) (unknown) (no (unknown) (unknown) MCV (80-100) fL (units (unknown) date) unknown) (unknown) (no (unknown) (unknown) MCV 79.5 L (units (unk nown) date) (80-100) fL unknown) (unknown) (no (unknown) (unknown) MDM - Alcohol (units ( unknown) date) unknown) (unknown) (no (unknown) (unknown) MDM Narrative (units ( unknown) date) unknown) (unknown) (no (unknown) (unknown) MIPS: This (units (unk nown) date) encounter doesn't unknown) have any diagnosis' associated with MIPS criteria. (unknown) (no (unknown) (unknown) MSK: moves all (units (unknown) date) extremities, unknown) neurovascularly intact, no weakness, normal tone no (unknown) (no (unknown) (unknown) Medical History (units (unknown) date) (Reviewed 07/12/22 unknown) @ 17:50 by Juliet Paz [facility]) (unknown) (no (unknown) (unknown) Medical decision (units (unknown) date) making narrative: unknown) (unknown) (no (unknown) (unknown) Medication (units (unk nown) date) Instructions unknown) Recorded Confirmed (unknown) (no (unknown) (unknown) Medication (units (unk nown) date) Instructions unknown) Recorded (unknown) (no (unknown) (unknown) Menometrorrhagia (units (unknown) date) unknown) (unknown) (no (unknown) (unknown) Mode of arrival: (units (unknown) date) Ambulatory unknown) (unknown) (no (unknown) (unknown) Yates # (Auto) (units ( unknown) date) (0-900) /uL unknown) (unknown) (no (unknown) (unknown) Yates # (Auto) 100 (units (unknown) date) (0-900) /uL unknown) (unknown) (no (unknown) (unknown) Yates % (Auto) (units ( unknown) date) (3-14) % unknown) (unknown) (no (unknown) (unknown) Yates % (Auto) 2.7 (units (unknown) date) L (3-14) % unknown) (unknown) (no (unknown) (unknown) Mother Diabetes (units (unknown) date) mellitus unknown) (unknown) (no (unknown) (unknown) Narrative (units (unkn own) date) unknown) (unknown) (no (unknown) (unknown) Nausea/vomiting ?> (units (unknown) date) 0 = No nausea and unknown) no vomiting (unknown) (no (unknown) (unknown) Neuro: normal (units ( unknown) date) speech and unknown) cognition, A+O x3, ambulatory, clear speech (unknown) (no (unknown) (unknown) Neut # (Auto) (units ( unknown) date) ([id number]) /uL unknown) (unknown) (no (unknown) (unknown) Neut # (Auto) 1500 (units (unknown) date) (9068-2417) /uL unknown) (unknown) (no (unknown) (unknown) Neut % (Auto) (units ( unknown) date) (50-75) % unknown) (unknown) (no (unknown) (unknown) Neut % (Auto) 45.5 (units (unknown) date) L (50-75) % unknown) (unknown) (no (unknown) (unknown) No Action (units (unkn own) date) unknown) (unknown) (no (unknown) (unknown) Obesity (units (unkno wn) date) unknown) (unknown) (no (unknown) (unknown) Ondansetron HCl (units (unknown) date) (Ondansetron 4 Mg unknown) Odt) 4 mg SL NOW ONE (unknown) (no (unknown) (unknown) Ondansetron HCl (units (unknown) date) (Ondansetron 4 Mg/2 unknown) Ml Inj) 4 mg IV Q6HR PRN (unknown) (no (unknown) (unknown) Ordered: (units (unkno wn) date) unknown) (unknown) (no (unknown) (unknown) Orders (units (unkno wn) date) unknown) (unknown) (no (unknown) (unknown) Orientation/cloudi (units (unknown) date) ng of sensorium ?> unknown) 0 = Oriented, can do serial additions (unknown) (no (unknown) (unknown) Over the course of (units (unknown) date) the night we have unknown) called various other facilities and they (unknown) (no (unknown) (unknown) Overweight (units (unk nown) date) unknown) (unknown) (no (unknown) (unknown) Oxygen Delivery (units (unknown) date) Method Room Air unknown) 07/12/22 16:10 (unknown) (no (unknown) (unknown) Oxygen Delivery (units (unknown) date) Method Room Air unknown) Room Air (unknown) (no (unknown) (unknown) Oxygen Delivery (units (unknown) date) Method unknown) (unknown) (no (unknown) (unknown) PRN Reason: Nausea (units (unknown) date) And Vomiting unknown) (unknown) (no (unknown) (unknown) Paroxysmal sweats (units (unknown) date) ?> 0 = No sweat unknown) visible (unknown) (no (unknown) (unknown) Patient (units (unkno wn) date) Disposition: Xfer unknown[facility] (no (unknown) (unknown) Patient History (units (unknown) date) unknown) (unknown) (no (unknown) (unknown) Patient has (units (un known) date) allergy to Reglan unknown) and hydrocodone. She denies urinary frequency, (unknown) (no (unknown) (unknown) Patient's CIWA at (units (unknown) date) 2019 is 12, I unknown) ordered for her 2 more mg of lorazepam p.o., (unknown) (no (unknown) (unknown) Patient: (units (unkno wn) date) Sarah Connors unknown) MR#: M (unknown) (no (unknown) (unknown) Patients with (units ( unknown) date) scores >= may unknown) require medication for withdrawal. (unknown) (no (unknown) (unknown) Pertinent lab (units ( unknown) date) findings reviewed: unknown) CBC is pertinent for mild leukopenia of 3.3, (unknown) (no (unknown) (unknown) Plt Count (units (unkn own) date) (150-400) X103/uL unknown) (unknown) (no (unknown) (unknown) Plt Count 226 (units ( unknown) date) (150-400) X103/uL unknown) (unknown) (no (unknown) (unknown) Point of Care (units ( unknown) date) Testing unknown) (unknown) (no (unknown) (unknown) Potassium (units (unkn own) date) (3.4-5.1) mmol/L unknown) (unknown) (no (unknown) (unknown) Potassium 3.9 (units ( unknown) date) (3.4-5.1) mmol/L unknown) (unknown) (no (unknown) (unknown) Test (units (unknown) date) Results Negative unknown) (unknown) (no (unknown) (unknown) Prescriptions: (units (unknown) date) unknown) (unknown) (no (unknown) (unknown) Previous Rx's (units ( unknown) date) unknown) (unknown) (no (unknown) (unknown) Psych: mental (units ( unknown) date) status is intact, unknown) patient has a normal affect although she is (unknown) (no (unknown) (unknown) Pulse Oximetry 97 (units (unknown) date) 100 unknown) (unknown) (no (unknown) (unknown) Pulse Oximetry 98 (units (unknown) date) 97 96 unknown) (unknown) (no (unknown) (unknown) Pulse Oximetry 99 (units (unknown) date) 07/12/22 16:10 unknown) (unknown) (no (unknown) (unknown) Pulse Oximetry 99 (units (unknown) date) unknown) (unknown) (no (unknown) (unknown) Pulse Rate 82 (units ( unknown) date) 07/12/22 16:10 unknown) (unknown) (no (unknown) (unknown) Pulse Rate 90 (units ( unknown) date) unknown) (unknown) (no (unknown) (unknown) Pulse Rate 94 H 92 (units (unknown) date) H 88 unknown) (unknown) (no (unknown) (unknown) Pulse Rate 97 H 87 (units (unknown) date) unknown) (unknown) (no (unknown) (unknown) Qualifiers: (units (un known) date) unknown) (unknown) (no (unknown) (unknown) Questions are (units ( unknown) date) addressed and there unknown) is agreement with the plan and for follow-up. (unknown) (no (unknown) (unknown) RBC (4.0-5.2) (units ( unknown) date) X106/uL unknown) (unknown) (no (unknown) (unknown) RBC 4.44 (4.0-5.2) (units (unknown) date) X106/uL unknown) (unknown) (no (unknown) (unknown) RDW (11.6-14.8) % (units (unknown) date) unknown) (unknown) (no (unknown) (unknown) RDW 17.3 H (units (unk nown) date) (11.6-14.8) % unknown) (unknown) (no (unknown) (unknown) RESULT SUMMARY: (units (unknown) date) unknown) (unknown) (no (unknown) (unknown) ROS Unobtainable: (units (unknown) date) All systems unknown) reviewed + are unremarkable except as noted in HPI (unknown) (no (unknown) (unknown) Referrals: (units (unk nown) date) unknown) (unknown) (no (unknown) (unknown) Related Data (units (u nknown) date) unknown) (unknown) (no (unknown) (unknown) Respiratory Rate (units (unknown) date) 14 07/12/22 16:10 unknown) (unknown) (no (unknown) (unknown) Respiratory Rate (units (unknown) date) 16 18 unknown) (unknown) (no (unknown) (unknown) Respiratory Rate (units (unknown) date) unknown) (unknown) (no (unknown) (unknown) Respiratory: (units (u nknown) date) normal effort, able unknown) to speak in complete sentences, without (unknown) (no (unknown) (unknown) Review of Systems (units (unknown) date) unknown) (unknown) (no (unknown) (unknown) Reviewed vitals (units (unknown) date) signs and nursing unknown) notes. (unknown) (no (unknown) (unknown) S/P myringotomy (units (unknown) date) with insertion of unknown) tube (unknown) (no (unknown) (unknown) SARS-CoV-2 (PCR) (units (unknown) date) (Negative) unknown) (unknown) (no (unknown) (unknown) SARS-CoV-2 (PCR) (units (unknown) date) Negative (Negative) unknown) (unknown) (no (unknown) (unknown) (spontaneous (units (unknown) date) vaginal delivery) unknown) (-09/05/18) (unknown) (no (unknown) (unknown) Salicylates < 1.0 (units (unknown) date) (<20) mg/dL unknown) (unknown) (no (unknown) (unknown) Salicylates (<20) (units (unknown) date) mg/dL unknown) (unknown) (no (unknown) (unknown) She was given a (units (unknown) date) couple water, a unknown) diet order was ordered however they may not (unknown) (no (unknown) (unknown) Signed By: (units (unk nown) date) unknown) (unknown) (no (unknown) (unknown) Skin: brisk (units (un known) date) capillary refill, unknown) without pallor or erythema (unknown) (no (unknown) (unknown) Smoker (units (unkno wn) date) unknown) (unknown) (no (unknown) (unknown) [place] and (units (unknown) date) [facility] in the unknown) past. She has been sober for a total of 18 (unknown) (no (unknown) (unknown) Smoking Status: (units (unknown) date) Former smoker unknown) (unknown) (no (unknown) (unknown) Social History (units (unknown) date) (Reviewed 07/12/22 unknown) @ 17:50 by Juliet Paz [facility]) (unknown) (no (unknown) (unknown) Social (units (unkno wn) date) considerations that unknown) may affect disposition: none (unknown) (no (unknown) (unknown) Sodium (137-145) (units (unknown) date) mmol/L unknown) (unknown) (no (unknown) (unknown) Sodium 140 (units (unk nown) date) (137-145) mmol/L unknown) (unknown) (no (unknown) (unknown) Sodium Chloride (units (unknown) date) (Normal Saline unknown) 0.9%) 1,000 mls @ 1,000 mls/hr IV BOLUS ONE (unknown) (no (unknown) (unknown) Source: patient (units (unknown) date) unknown) (unknown) (no (unknown) (unknown) Stated Complaint: (units (unknown) date) Stress/Depression unknown) (unknown) (no (unknown) (unknown) Stop: 07/12/22 (units (unknown) date) 17:33 unknown) (unknown) (no (unknown) (unknown) Stop: 07/12/22 (units (unknown) date) 17:45 unknown) (unknown) (no (unknown) (unknown) Stop: 07/12/22 (units (unknown) date) 18:28 unknown) (unknown) (no (unknown) (unknown) Stop: 07/12/22 (units (unknown) date) 18:31 unknown) (unknown) (no (unknown) (unknown) Stop: 07/12/22 (units (unknown) date) 19:25 unknown) (unknown) (no (unknown) (unknown) Stop: 07/12/22 (units (unknown) date) 20:03 unknown) (unknown) (no (unknown) (unknown) Stop: 07/12/22 (units (unknown) date) 20:17 unknown) (unknown) (no (unknown) (unknown) Substance Use (units ( unknown) date) Type: does not use unknown) (unknown) (no (unknown) (unknown) Surgical History (units (unknown) date) (Reviewed 07/12/22 unknown) @ 17:50 by Juliet Paz [facility]) (unknown) (no (unknown) (unknown) TSH (0.47-4.68) (units (unknown) date) uIU/mL unknown) (unknown) (no (unknown) (unknown) TSH 1.24 (units (unkno wn) date) (0.47-4.68) uIU/mL unknown) (unknown) (no (unknown) (unknown) Tactile (units (unkno wn) date) disturbances ?> 1 = unknown) Very mild itching, pin and needles, burning, or (unknown) (no (unknown) (unknown) Temperature 97.2 F (units (unknown) date) L 07/12/22 16:10 unknown) (unknown) (no (unknown) (unknown) Thiamine HCl (units (u nknown) date) (Thiamine 100 Mg unknown) Tablet) 100 mg PO NOW ONE (unknown) (no (unknown) (unknown) Thiamine HCl 200 (units (unknown) date) mg/ Sodium unknown) (Chloride) 102 mls @ 408 mls/hr IV NOW ONE (unknown) (no (unknown) (unknown) This is a (units (unkn own) date) 31-year-old female unknown) with history of alcohol abuse and appears to have (unknown) (no (unknown) (unknown) Time Seen by (units (u nknown) date) Provider: 07/12/22 unknown) 17:05 (unknown) (no (unknown) (unknown) Total Bilirubin (units (unknown) date) (0.2-1.3) mg/dL unknown) (unknown) (no (unknown) (unknown) Total Bilirubin (units (unknown) date) 0.4 (0.2-1.3) mg/dL unknown) (unknown) (no (unknown) (unknown) Total Protein (units ( unknown) date) (6.3-8.2) g/dL unknown) (unknown) (no (unknown) (unknown) Total Protein 7.3 (units (unknown) date) (6.3-8.2) g/dL unknown) (unknown) (no (unknown) (unknown) Tremor ?> 1 = Not (units (unknown) date) visible, but can be unknown) felt fingertip to fingertip (unknown) (no (unknown) (unknown) U Benzodiazepines (units (unknown) date) Scrn (Negative) unknown) (unknown) (no (unknown) (unknown) U Benzodiazepines (units (unknown) date) Scrn Negative unknown) (Negative) (unknown) (no (unknown) (unknown) U Marijuana (THC) (units (unknown) date) Screen (Negative) unknown) (unknown) (no (unknown) (unknown) U Marijuana (THC) (units (unknown) date) Screen Negative unknown) (Negative) (unknown) (no (unknown) (unknown) U Methamphetamines (units (unknown) date) Scrn (Negative) unknown) (unknown) (no (unknown) (unknown) U Methamphetamines (units (unknown) date) Scrn Negative unknown) (Negative) (unknown) (no (unknown) (unknown) U Opiates 300ng/mL (units (unknown) date) cut (Negative) unknown) (unknown) (no (unknown) (unknown) U Opiates 300ng/mL (units (unknown) date) cut Negative unknown) (Negative) (unknown) (no (unknown) (unknown) U Tricyclic (units (un known) date) Antidepress unknown) (Negative) (unknown) (no (unknown) (unknown) U Tricyclic (units (un known) date) Antidepress unknown) Negative (Negative) (unknown) (no (unknown) (unknown) Ur Amphetamines (units (unknown) date) Screen (Negative) unknown) (unknown) (no (unknown) (unknown) Ur Amphetamines (units (unknown) date) Screen Negative unknown) (Negative) (unknown) (no (unknown) (unknown) Ur Barbiturates (units (unknown) date) Screen (Negative) unknown) (unknown) (no (unknown) (unknown) Ur Barbiturates (units (unknown) date) Screen Negative unknown) (Negative) (unknown) (no (unknown) (unknown) Ur Culture (units (unk nown) date) Indicated? Specimen unknown) cultured (unknown) (no (unknown) (unknown) Ur Culture (units (unk nown) date) Indicated? unknown) (unknown) (no (unknown) (unknown) Ur MDMA Scrn (units (u nknown) date) (Ecstasy) unknown) (Negative) (unknown) (no (unknown) (unknown) Ur MDMA Scrn (units (u nknown) date) (Ecstasy) Negative unknown) (Negative) (unknown) (no (unknown) (unknown) Ur Oxycodone (units (u nknown) date) Screen (Negative) unknown) (unknown) (no (unknown) (unknown) Ur Oxycodone (units (u nknown) date) Screen Negative unknown) (Negative) (unknown) (no (unknown) (unknown) Ur Phencyclidine (units (unknown) date) Scrn (Negative) unknown) (unknown) (no (unknown) (unknown) Ur Phencyclidine (units (unknown) date) Scrn Negative unknown) (Negative) (unknown) (no (unknown) (unknown) Ur Squamous Epith (units (unknown) date) Cells (0-5/HPF) unknown) (unknown) (no (unknown) (unknown) Ur Squamous Epith (units (unknown) date) Cells 1-5 /hpf unknown) (0-5/HPF) (unknown) (no (unknown) (unknown) Urine Bacteria (units (unknown) date) (None) unknown) (unknown) (no (unknown) (unknown) Urine Bacteria (units (unknown) date) Many (>30) H (None) unknown) (unknown) (no (unknown) (unknown) Urine Cocaine (units ( unknown) date) Screen (Negative) unknown) (unknown) (no (unknown) (unknown) Urine Cocaine (units ( unknown) date) Screen Negative unknown) (Negative) (unknown) (no (unknown) (unknown) Urine Dip (units (unkn own) date) unknown) (unknown) (no (unknown) (unknown) Urine Methadone (units (unknown) date) Screen (Negative) unknown) (unknown) (no (unknown) (unknown) Urine Methadone (units (unknown) date) Screen Negative unknown) (Negative) (unknown) (no (unknown) (unknown) Urine RBC (units (unkn own) date) (0-5/HPF) unknown) (unknown) (no (unknown) (unknown) Urine RBC 1-5/hpf (units (unknown) date) (0-5/HPF) unknown) (unknown) (no (unknown) (unknown) Urine Specific (units (unknown) date) [place] 1.015 unknown) (unknown) (no (unknown) (unknown) Urine WBC (units (unkn own) date) (0-5/HPF) unknown) (unknown) (no (unknown) (unknown) Urine WBC 1-5/hpf (units (unknown) date) (0-5/HPF) unknown) (unknown) (no (unknown) (unknown) Urine microscopy (units (unknown) date) with many bacteria, unknown) pending for culture, will treat for acute (unknown) (no (unknown) (unknown) Visual (units (unkno wn) date) disturbances ?> 1 = unknown) Very mild sensitivity (unknown) (no (unknown) (unknown) Vital Signs - 8 hr (units (unknown) date) unknown) (unknown) (no (unknown) (unknown) Vital Signs (units (un known) date) unknown) (unknown) (no (unknown) (unknown) Vital signs: (units (u nknown) date) unknown) (unknown) (no (unknown) (unknown) WBC (4.5-11.0) (units (unknown) date) X103/uL unknown) (unknown) (no (unknown) (unknown) WBC 3.3 L (units (unkn own) date) (4.5-11.0) X103/uL unknown) (unknown) (no (unknown) (unknown) [1900] ([place]) (units (unknown) date) Patient received in unknown) sign out [employer]. I have reviewed the (unknown) (no (unknown) (unknown) [Embedded Image (units (unknown) date) Not Available] unknown) (unknown) (no (unknown) (unknown) [METOCLOPRAMIDE] (units (unknown) date) unknown) (unknown) (no (unknown) (unknown) acceptable. She is (units (unknown) date) nauseated, without unknown) vomiting, received Zofran previously and (unknown) (no (unknown) (unknown) acetaminophen 325 (units (unknown) date) mg tablet 325 mg PO unknown) Q6H PRN pain #20 tabs 02/05/20 (unknown) (no (unknown) (unknown) acetaminophen (units ( unknown) date) [Tylenol] 325 mg unknown) tablet (unknown) (no (unknown) (unknown) alcohol in 300s, (units (unknown) date) she was last here unknown) in the emergency department in May of (unknown) (no (unknown) (unknown) alcohol intake (units (unknown) date) frequency: 3 or unknown) more drinks per day (unknown) (no (unknown) (unknown) alcohol intake: (units (unknown) date) former unknown) (unknown) (no (unknown) (unknown) alcohol level (units ( unknown) date) below 0.08 to be unknown) considered for placement there. (unknown) (no (unknown) (unknown) and below (units (unkn own) date) unknown) (unknown) (no (unknown) (unknown) and she drinking (units (unknown) date) daily since this unknown) happened. She wants rehab. She has been (unknown) (no (unknown) (unknown) anxious, (units (unkno wn) date) intoxicated and now unknown) withdrawing. pleasant and cooperative (unknown) (no (unknown) (unknown) are currently no (units (unknown) date) available beds. unknown) Patient resting comfortably (unknown) (no (unknown) (unknown) arrhythmia, or (units (unknown) date) acute ischemic unknown) changes. (unknown) (no (unknown) (unknown) at extension and (units (unknown) date) states that she unknown) feels symptoms of alcohol withdrawal. Denies (unknown) (no (unknown) (unknown) being depressed at (units (unknown) date) this time, CIWA is unknown) an 8. (unknown) (no (unknown) (unknown) bpm with rightward (units (unknown) date) axis and normal unknown) intervals. No STEMI, ST segment changes, (unknown) (no (unknown) (unknown) clinical course (units (unknown) date) and performed an unknown) independent history and physical exam. Patient (unknown) (no (unknown) (unknown) current (units (unkno wn) date) occupational unknown) exposures/hazards: Yes (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 with Pandemic ) (unknown) (no (unknown) (unknown) cystitis without (units (unknown) date) hematuria unknown) (unknown) (no (unknown) (unknown) cystitis (units (unkno wn) date) unknown) (unknown) (no (unknown) (unknown) cystitis, she is (units (unknown) date) p.o. tolerant, unknown) still pending lab work (unknown) (no (unknown) (unknown) deliver since it (units (unknown) date) is after 17:00 and unknown) the diet order was ordered at 17:30. Samira (unknown) (no (unknown) (unknown) detox 11 times, (units (unknown) date) states that it has unknown) taking Antabuse, Librium, Ativan, she denies (unknown) (no (unknown) (unknown) detox as well. (units (unknown) date) unknown) (unknown) (no (unknown) (unknown) diarrhea or (units (un known) date) current stool unknown) changes. (unknown) (no (unknown) (unknown) diphenhydramine (units (unknown) [...] mg unknown) capsule (unknown) (no (unknown) (unknown) draw her labs (units ( unknown) date) unknown) (unknown) (no (unknown) (unknown) education level: (units (unknown) date) college unknown) (unknown) (no (unknown) (unknown) electrolyte (units (un known) date) abnormalities. unknown) (unknown) (no (unknown) (unknown) emergency (units (unkn own) date) department on unknown) 06/18/2022 and a few days prior to that with a blood (unknown) (no (unknown) (unknown) extremities (units (un known) date) unknown) (unknown) (no (unknown) (unknown) renee/zoroastrianism: (units (unknown) date) Buddhist unknown) (unknown) (no (unknown) (unknown) fidgeting (units (unkn own) date) unknown) (unknown) (no (unknown) (unknown) fluid, EtOH, and (units (unknown) date) CIWA, ordered 2 mg unknown) of IV lorazepam for patient's symptoms, (unknown) (no (unknown) (unknown) for alcohol (units (un known) date) related complaints unknown) through 2019, and she presented to the [facility] (unknown) (no (unknown) (unknown) from social work (units (unknown) date) is aware and unknown) pending her lab work to arrange for inpatient (unknown) (no (unknown) (unknown) go to detox. She (units (unknown) date) is currently unknown) intoxicated endorses symptoms of alcohol (unknown) (no (unknown) (unknown) her urine (units (unkn own) date) microscopy came unknown) back positive for many bacteria, will treat for acute (unknown) (no (unknown) (unknown) household members: (units (unknown) date) spouse and children unknown) (unknown) (no (unknown) (unknown) hydrated. (units (unkn own) date) unknown) (unknown) (no (unknown) (unknown) hydrocodone (units (un known) date) [HYDROCODONE] unknown) AdvReac Unknown VOMITING Verified 07/12/22 16:18 (unknown) (no (unknown) (unknown) ibuprofen 600 mg (units (unknown) date) Tablet unknown) (unknown) (no (unknown) (unknown) ibuprofen 600 mg (units (unknown) date) tablet 600 mg PO unknown) Q6HR PRN Pain, Mild 07/04/20 (unknown) (no (unknown) (unknown) intoxicated, (units (u nknown) date) pleasant, unknown) interactive and comfortable although active, anxious and (unknown) (no (unknown) (unknown) is 338, COVID PCR (units (unknown) date) was negative, drug unknown) screen is negative for all tested agents, (unknown) (no (unknown) (unknown) is allergic to (units ( unknown) date) Reglan, will dose unknown) with another 5 mg of Zofran, no QT prolongation (unknown) (no (unknown) (unknown) knowing if she is (units (unknown) date) had phenobarbital unknown) in the past. (unknown) (no (unknown) (unknown) limited history (units (unknown) date) currently due to unknown) intoxication. She states that she is recently (unknown) (no (unknown) (unknown) lorazepam at 2 mg (units (unknown) date) for this. unknown) (unknown) (no (unknown) (unknown) marital status: (units (unknown) date) unknown) (unknown) (no (unknown) (unknown) metoclopramide (units (unknown) date) Allergy Mild unknown) RASH/HIVES Verified 07/12/22 16:18 (unknown) (no (unknown) (unknown) mild anemia but (units (unknown) date) improved from her unknown) prior with H+H of 11.5 and 35.3, no evidence (unknown) (no (unknown) (unknown) months. She denies (units (unknown) date) any recent unknown) injuries, denies chance of , denies any (unknown) (no (unknown) (unknown) nausea vomiting or (units (unknown) date) abdominal pain at unknown) this time. 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 (units (u nknown) date) Ativan for her unknown) symptoms and ask our into call lab to come up and (unknown) (no (unknown) (unknown) other ingestions, (units (unknown) date) is pleasant, unknown) seeking help with her intoxication and wishes to (unknown) (no (unknown) (unknown) patient's (units (unknown) date) is at the bedside unknown) offering support, she raises nausea, another (unknown) (no (unknown) (unknown) prenat.vits,otis,mi (units (unknown) date) [id number] 1 tab unknown) PO DAILY 12/30/19 07/03/20 (unknown) (no (unknown) (unknown) prenat.vits,otis,mi (units (unknown) date) [id number] Tablet unknown) (unknown) (no (unknown) (unknown) relapsed due to a (units (unknown) date) divorce with her unknown) . She used to be a frequent visitor (unknown) (no (unknown) (unknown) resting (units (unkno wn) date) comfortably, unknown) currently pursuing [place] [facility] [place] (unknown) (no (unknown) (unknown) scores of 10 or (units (unknown) date) less by 4 unknown) hours a piece and must also have blood (unknown) (no (unknown) (unknown) second hand (units (un known) date) exposure: No unknown) (growing up as a child - not currently) (unknown) (no (unknown) (unknown) significant tremor (units (unknown) date) or tongue unknown) fasciculation, she has a mild tremor with her arms (unknown) (no (unknown) (unknown) social work and (units (unknown) date) orders are pending unknown) (unknown) (no (unknown) (unknown) special renee (units ( unknown) date) needs: No unknown) (unknown) (no (unknown) (unknown) substance abuse, (units (unknown) date) alcohol unknown) intoxication, psychosis, mood disorder, depression (unknown) (no (unknown) (unknown) substance use (units ( unknown) date) type: does not use unknown) (unknown) (no (unknown) (unknown) tablet vomiting (units (unknown) date) #14 tabs unknown) (unknown) (no (unknown) (unknown) tablet vomiting (units (unknown) date) #20 tabs unknown) (unknown) (no (unknown) (unknown) tablet vomiting (units (unknown) date) #30 tabs unknown) (unknown) (no (unknown) (unknown) tenderness or (units ( unknown) date) exquisite unknown) tenderness with exam. (unknown) (no (unknown) (unknown) that she drinks (units (unknown) date) vodka and admits to unknown) drinking heavily today, states that she took (unknown) (no (unknown) (unknown) the bottle upside (units (unknown) date) down and started unknown) checking from it. She states that she drank (unknown) (no (unknown) (unknown) thyroid studies (units (unknown) date) are still pending. unknown) No significant findings to her CMP. No (unknown) (no (unknown) (unknown) tramadol 50 mg (units (unknown) date) tablet 50 mg PO Q6H unknown) PRN pain #10 tabs 06/12/22 (unknown) (no (unknown) (unknown) tramadol 50 mg (units (unknown) date) tablet unknown) (unknown) (no (unknown) (unknown) tremors, no (units (un known) date) tachycardia, her unknown) CIWA is currently 10, ordered another p.o. dose of (unknown) (no (unknown) (unknown) urgency or flank (units (unknown) date) pain, endorses unknown) nausea without vomiting. Patient has been to (unknown) (no (unknown) (unknown) well as prior (units ( unknown) date) records if unknown) available. (unknown) (no (unknown) (unknown) wheezing, stridor, (units (unknown) date) or abnormal breath unknown) sounds. No retractions or tachypnea. (unknown) (no (unknown) (unknown) withdrawal. (units (un known) date) Patient states that unknown) she takes Seroquel 300 mg at night as well as Result panel [id number] (unknown) (no (unknown) (unknown) (no value) (units (unk nown) date) unknown) (unknown) (no (unknown) (unknown) <Juliet Paz, (units (unknown) date) RECREATION PROGRAMMER - Last Filed: unknown) 07/12/22 20:27> (unknown) (no (unknown) (unknown) <Reinaldo Arthur DO (units (unknown) date) - Last Filed: unknown) 07/13/22 06:11> (unknown) (no (unknown) (unknown) (1-3) #30 tabs (units (unknown) date) unknown) (unknown) (no (unknown) (unknown) (Benadryl) caps (units (unknown) date) unknown) (unknown) (no (unknown) (unknown) (Colace) (units (unkno wn) date) unknown) (unknown) (no (unknown) (unknown) (Tylenol) (units (unkn own) date) unknown) (unknown) (no (unknown) (unknown) [id number] (units (unkn own) date) unknown) (unknown) (no (unknown) (unknown) 01:28 07/13/22 (units (unknown) date) unknown) (unknown) (no (unknown) (unknown) 01:50 (units (unkno wn) date) unknown) (unknown) (no (unknown) (unknown) 02:00 07/13/22 (units (unknown) date) unknown) (unknown) (no (unknown) (unknown) 02:14 07/13/22 (units (unknown) date) unknown) (unknown) (no (unknown) (unknown) 02:14 (units (unkno wn) date) unknown) (unknown) (no (unknown) (unknown) 02:30 (units (unkno wn) date) unknown) (unknown) (no (unknown) (unknown) 07/12/22 07/12/22 (units (unknown) date) 07/12/22 unknown) Range/Units (unknown) (no (unknown) (unknown) 07/12/22 19:15 (units (unknown) date) unknown) (unknown) (no (unknown) (unknown) 07/12/22 (units (unkno wn) date) unknown) (unknown) (no (unknown) (unknown) 07/13/22 (units (unkno wn) date) unknown) (unknown) (no (unknown) (unknown) 0530 -patient (units (u nknown) date) beginning to feel a unknown) bit agitated and restless, she is tachycardic. (unknown) (no (unknown) (unknown) 1 tab PO DAILY (units (unknown) date) unknown) (unknown) (no (unknown) (unknown) 100 mg PO BID Qty: (units (unknown) date) 30 0RF unknown) (unknown) (no (unknown) (unknown) 16:32 16:32 16:32 (units (unknown) date) unknown) (unknown) (no (unknown) (unknown) 183 patient still (units (unknown) date) does not have an unknown) IV, has not received any IV fluid her (unknown) (no (unknown) (unknown) 190 still no IV, (units (unknown) date) patient is p.o. unknown) challenging, she received her p.o. lorazepam, (unknown) (no (unknown) (unknown) 193, patient now (units (unknown) date) feels depressed, unknown) she is lying in bed, feeling bad, has (unknown) (no (unknown) (unknown) 19:15 19:15 19:15 (units (unknown) date) unknown) (unknown) (no (unknown) (unknown) 1999 patient is (units (unknown) date) feeling better now, unknown) her lab work is starting to return and ETOH (unknown) (no (unknown) (unknown) 2002 patient (units (u nknown) date) requests to take unknown) her home dosing of Seroquel 300 mg, this is (unknown) (no (unknown) (unknown) 2022 with similar (units (unknown) date) symptoms. She comes unknown) in complaining of needing help, states (unknown) (no (unknown) (unknown) 2200 -sm[facility] point (units (unknown) date) called back and unknown) states that patient must have free CIWA (unknown) (no (unknown) (unknown) 23:30 07/13/22 (units (unknown) date) unknown) (unknown) (no (unknown) (unknown) 25 mg PO BEDTIME (units (unknown) date) PRN (Reason: unknown) insomnia) Qty: 20 0RF (unknown) (no (unknown) (unknown) 325 mg PO Q6H PRN (units (unknown) date) (Reason: pain) Qty: unknown) 20 0RF (unknown) (no (unknown) (unknown) 4 Zofran was (units (u nknown) date) ordered. So has not unknown) been given, patient is signed out to (unknown) (no (unknown) (unknown) 4 mg PO [...] Qty: 30 0RF (unknown) (no (unknown) (unknown) 750 mL of time. (units (unknown) date) She just she has unknown) nothing to do but relapsed. This 3 weeks ago (unknown) (no (unknown) (unknown) 9 points (units (unkno wn) date) unknown) (unknown) (no (unknown) (unknown) ALT (<35) IU/L (units (unknown) date) unknown) (unknown) (no (unknown) (unknown) ALT 21 (<35) IU/L (units (unknown) date) unknown) (unknown) (no (unknown) (unknown) AST (14-36) IU/L (units (unknown) date) unknown) (unknown) (no (unknown) (unknown) AST 67 H (14-36) (units (unknown) date) IU/L unknown) (unknown) (no (unknown) (unknown) Acetaminophen < 10 (units (unknown) date) (10-30) ug/mL unknown) (unknown) (no (unknown) (unknown) Acetaminophen (units ( unknown) date) (10-30) ug/mL unknown) (unknown) (no (unknown) (unknown) Admin: 07/12/22 (units (unknown) date) 19:47 Dose: 500 mg unknown) (unknown) (no (unknown) (unknown) Age/Sex: 31 / F (units (unknown) date) unknown) (unknown) (no (unknown) (unknown) Agitation ?> 2 = (units (unknown) date) (More severe unknown) symptoms) (unknown) (no (unknown) (unknown) Albumin (3.5-5.0) (units (unknown) date) g/dL unknown) (unknown) (no (unknown) (unknown) Albumin 4.3 (units (un known) date) (3.5-5.0) g/dL unknown) (unknown) (no (unknown) (unknown) Albumin/Globulin (units (unknown) date) Ratio (1.0-2.8) unknown) (unknown) (no (unknown) (unknown) Albumin/Globulin (units (unknown) date) Ratio 1.4 (1.0-2.8) unknown) (unknown) (no (unknown) (unknown) Alcohol (units (unkno wn) date) withdrawal, Acute unknown) cystitis (unknown) (no (unknown) (unknown) Alcoholism (units (unk nown) date) unknown) (unknown) (no (unknown) (unknown) Alkaline (units (unkno wn) date) Phosphatase unknown) (38-126) U/L (unknown) (no (unknown) (unknown) Alkaline (units (unkno wn) date) Phosphatase 98 unknown) (38-126) U/L (unknown) (no (unknown) (unknown) Allergies (units (unkn own) date) unknown) (unknown) (no (unknown) (unknown) Allergy/AdvReac (units (unknown) date) Type Severity unknown) Reaction Status Date / Time (unknown) (no (unknown) (unknown) Anemia (-2018) (units (unknown) date) unknown) (unknown) (no (unknown) (unknown) Anxiety ?> 2 = (units (unknown) date) (More severe unknown) symptoms) (unknown) (no (unknown) (unknown) Auditory (units (unkno wn) date) disturbances ?> 1 = unknown) Very mild harshness or ability to frighten (unknown) (no (unknown) (unknown) BUN (7-17) mg/dL (units (unknown) date) unknown) (unknown) (no (unknown) (unknown) BUN 9 (7-17) mg/dL (units (unknown) date) unknown) (unknown) (no (unknown) (unknown) BUN/Creatinine (units (unknown) date) Ratio (6-22) unknown) (unknown) (no (unknown) (unknown) BUN/Creatinine (units (unknown) date) Ratio 11.0 (6-22) unknown) (unknown) (no (unknown) (unknown) Baso # (Auto) (units ( unknown) date) (0-100) /uL unknown) (unknown) (no (unknown) (unknown) Baso # (Auto) 0 (units (unknown) date) (0-100) /uL unknown) (unknown) (no (unknown) (unknown) Baso % (Auto) (units ( unknown) date) (0-2) % unknown) (unknown) (no (unknown) (unknown) Baso % (Auto) 0.9 (units (unknown) date) (0-2) % unknown) (unknown) (no (unknown) (unknown) Bedside Urine (units ( unknown) date) Bilirubin - unknown) Negative (unknown) (no (unknown) (unknown) Bedside Urine (units ( unknown) date) Glucose Negative unknown) (unknown) (no (unknown) (unknown) Bedside Urine (units ( unknown) date) Ketone - Negative unknown) (unknown) (no (unknown) (unknown) Bedside Urine (units ( unknown) date) Leukocytes - unknown) Negative (unknown) (no (unknown) (unknown) Bedside Urine (units ( unknown) date) Nitrite + Positive unknown) (unknown) (no (unknown) (unknown) Bedside Urine (units ( unknown) date) Occult Blood - unknown) Negative (unknown) (no (unknown) (unknown) Bedside Urine (units ( unknown) date) Protein - Negative unknown) (unknown) (no (unknown) (unknown) Bedside Urine (units ( unknown) date) Urobilinogen - unknown) Negative (unknown) (no (unknown) (unknown) Bedside Urine pH (units (unknown) date) 6.0 unknown) (unknown) (no (unknown) (unknown) Blood Pressure (units (unknown) date) 102/59 L unknown) (unknown) (no (unknown) (unknown) Blood Pressure (units (unknown) date) 112/62 07/12/22 unknown) 16:10 (unknown) (no (unknown) (unknown) Blood Pressure (units (unknown) date) 99/58 L unknown) (unknown) (no (unknown) (unknown) Blood Pressure (units (unknown) date) [Left Arm] 95/53 L unknown) (unknown) (no (unknown) (unknown) Blood Pressure (units (unknown) date) [Left Arm] unknown) (unknown) (no (unknown) (unknown) Blood Pressure (units (unknown) date) unknown) (unknown) (no (unknown) (unknown) CIWA is now worse (units (unknown) date) and she has unknown) tremors, anxiety is worsening and agitation, (unknown) (no (unknown) (unknown) CIWA-Ar for (units (un known) date) Alcohol Withdrawal unknown) from [facility] on 07/12/2022 (unknown) (no (unknown) (unknown) Calcium (8.4-10.2) (units (unknown) date) mg/dL unknown) (unknown) (no (unknown) (unknown) Calcium 8.0 L (units ( unknown) date) (8.4-10.2) mg/dL unknown) (unknown) (no (unknown) (unknown) Carbon Dioxide (units (unknown) date) (22-32) mmol/L unknown) (unknown) (no (unknown) (unknown) Carbon Dioxide 23 (units (unknown) date) (22-32) mmol/L unknown) (unknown) (no (unknown) (unknown) Cardiovascular: (units (unknown) date) Tachycardic rate unknown) and rhythm, no peripheral edema, warm (unknown) (no (unknown) (unknown) Cephalexin HCl (units (unknown) date) (Cephalexin 250 Mg unknown) Capsule) 500 mg PO Q6H SANDY (unknown) (no (unknown) (unknown) Chief Complaint: (units (unknown) date) Alcohol unknown) intoxication, seeking detox (unknown) (no (unknown) (unknown) Chief Complaint: (units (unknown) date) Toxicology Problem unknown) (unknown) (no (unknown) (unknown) Chloride (98-107) (units (unknown) date) mmol/L unknown) (unknown) (no (unknown) (unknown) Chloride 104 (units (u nknown) date) (98-107) mmol/L unknown) (unknown) (no (unknown) (unknown) Clinical (units (unkno wn) date) Impression: unknown) (unknown) (no (unknown) (unknown) Clinical decision (units (unknown) date) rules or scores unknown) evaluated: [facility] of 9 at 1753 (unknown) (no (unknown) (unknown) Course of care: (units (unknown) date) Patient is a unknown) difficult IV stick, ordered IV with lab work, (unknown) (no (unknown) (unknown) Course (units (unkno wn) date) unknown) (unknown) (no (unknown) (unknown) Creatinine (units (unk nown) date) (0.52-1.04) mg/dL unknown) (unknown) (no (unknown) (unknown) Creatinine 0.82 (units (unknown) date) (0.52-1.04) mg/dL unknown) (unknown) (no (unknown) (unknown) Samantha Arthur gave her (units (unknown) date) grilled cheese, unknown) soup, some juice and encouraged her to stay (unknown) (no (unknown) (unknown) : 1990 (units (unknown) date) Acct:[id number] unknown) (unknown) (no (unknown) (unknown) Date of Service: (units (unknown) date) 07/12/22 unknown) (unknown) (no (unknown) (unknown) Departure (units (unkn own) date) unknown) (unknown) (no (unknown) (unknown) Differential (units (u nknown) date) diagnoses include unknown) but are not limited to: Alcohol withdrawal, (unknown) (no (unknown) (unknown) Discharge Plan (units (unknown) date) unknown) (unknown) (no (unknown) (unknown) Discontinued (units (u nknown) date) Medications unknown) (unknown) (no (unknown) (unknown) Documented By: AP (units (unknown) date) unknown) (unknown) (no (unknown) (unknown) Documented By: KB (units (unknown) date) unknown) (unknown) (no (unknown) (unknown) Documented By: OW (units (unknown) date) unknown) (unknown) (no (unknown) (unknown) ECG Data (units (unkno wn) date) unknown) (unknown) (no (unknown) (unknown) EKG independently (units (unknown) date) reviewed by myself unknown) at 1830 reveals normal sinus rhythm at 72 (unknown) (no (unknown) (unknown) ER Physician: (units ( unknown) date) Reinaldo Arthur D.O. unknown) (unknown) (no (unknown) (unknown) Emergency Report (units (unknown) date) unknown) (unknown) (no (unknown) (unknown) Eos # (Auto) (units (u nknown) date) (0-450) /uL unknown) (unknown) (no (unknown) (unknown) Eos # (Auto) 0 (units (unknown) date) (0-450) /uL unknown) (unknown) (no (unknown) (unknown) Eos % (Auto) (2-4) (units (unknown) date) % unknown) (unknown) (no (unknown) (unknown) Eos % (Auto) 0.3 L (units (unknown) date) (2-4) % unknown) (unknown) (no (unknown) (unknown) Esterase (units (unkno wn) date) unknown) (unknown) (no (unknown) (unknown) Estimated GFR > 60 (units (unknown) date) (>60) mL/min unknown) (unknown) (no (unknown) (unknown) Estimated GFR (units ( unknown) date) (>60) mL/min unknown) (unknown) (no (unknown) (unknown) Ethyl Alcohol ( - (units (unknown) date) 10) mg/dL unknown) (unknown) (no (unknown) (unknown) Ethyl Alcohol 338 (units (unknown) date) H ( - 10) mg/dL unknown) (unknown) (no (unknown) (unknown) Exam Narrative: (units (unknown) date) unknown) (unknown) (no (unknown) (unknown) Exam (units (unkno wn) date) unknown) (unknown) (no (unknown) (unknown) Family History (units (unknown) date) (Reviewed 07/12/22 unknown) @ 17:50 by LYUDMILA Do) (unknown) (no (unknown) (unknown) Family/Other (units (u nknown) date) Alcoholism unknown) (unknown) (no (unknown) (unknown) Family/Other (units (u nknown) date) Diabetes mellitus unknown) (unknown) (no (unknown) (unknown) Father Alcoholism (units (unknown) date) unknown) (unknown) (no (unknown) (unknown) Tonia Schneider MD (units (unknown) date) [Primary Care unknown) Provider] (unknown) (no (unknown) (unknown) Folic Acid (Folic (units (unknown) date) Acid 1 Mg Tablet) 1 unknown) mg PO DAILY SANDY (unknown) (no (unknown) (unknown) Free T4 (units (unkno wn) date) (0.78-2.19) ng/dL unknown) (unknown) (no (unknown) (unknown) Free T4 0.93 (units (u nknown) date) (0.78-2.19) ng/dL unknown) (unknown) (no (unknown) (unknown) GI: abdomen soft, (units (unknown) date) nontender to unknown) palpation, nondistended, without masses, rebound (unknown) (no (unknown) (unknown) General (units (unkno wn) date) unknown) (unknown) (no (unknown) (unknown) General: (units (unkno wn) date) cooperative, unknown) comfortable, in no acute distress, well groomed, appears (unknown) (no (unknown) (unknown) Globulin (1.7-4.1) (units (unknown) date) g/dL unknown) (unknown) (no (unknown) (unknown) Globulin 3.0 (units (u nknown) date) (1.7-4.1) g/dL unknown) (unknown) (no (unknown) (unknown) Glucose (70-100) (units (unknown) date) mg/dL unknown) (unknown) (no (unknown) (unknown) Glucose 111 H (units ( unknown) date) (70-100) mg/dL [...] extraction () unknown) (unknown) (no (unknown) (unknown) HEENT: symmetrical (units (unknown) date) facial expressions, unknown) dry mucous membranes (unknown) (no (unknown) (unknown) HPI - Alcohol (units ( unknown) date) unknown) (unknown) (no (unknown) (unknown) HPI narrative: (units (unknown) date) unknown) (unknown) (no (unknown) (unknown) Hct (36-46) % (units ( unknown) date) unknown) (unknown) (no (unknown) (unknown) Hct 35.3 L (36-46) (units (unknown) date) % unknown) (unknown) (no (unknown) (unknown) Headache/fullness (units (unknown) date) in head ?> 1 = Very unknown) mild (unknown) (no (unknown) (unknown) Hgb (12.0-16.0) (units (unknown) date) g/dL unknown) (unknown) (no (unknown) (unknown) Hgb 11.5 L (units (unk nown) date) (12.0-16.0) g/dL unknown) (unknown) (no (unknown) (unknown) History of Present (units (unknown) date) Illness unknown) (unknown) (no (unknown) (unknown) Home Medications (units (unknown) date) unknown) (unknown) (no (unknown) (unknown) I have (units (unkno wn) date) independently unknown) reviewed the patient's vital signs and nursing notes as (unknown) (no (unknown) (unknown) INPUTS: (units (unkno wn) date) unknown) (unknown) (no (unknown) (unknown) Independent (units (un known) date) historian: Patient unknown) (unknown) (no (unknown) (unknown) Initial Vital (units ( unknown) date) Signs unknown) (unknown) (no (unknown) (unknown) Initial Vital (units ( unknown) date) Signs: unknown) (unknown) (no (unknown) (unknown) Insomnia (units (unkno wn) date) unknown) (unknown) (no (unknown) (unknown) Interpretation: (units (unknown) date) unknown) (unknown) (no (unknown) (unknown) [facility] (units (unknown) date) [address] unknown) [place] [address] (unknown) (no (unknown) (unknown) Lab Data (units (unkno wn) date) unknown) (unknown) (no (unknown) (unknown) Lab Results (units (un known) date) unknown) (unknown) (no (unknown) (unknown) Labs: (units (unkno wn) date) unknown) (unknown) (no (unknown) (unknown) Last Admin: (units (un known) date) 07/12/22 18:39 unknown) Dose: 4 mg (unknown) (no (unknown) (unknown) Last Admin: (units (un known) date) 07/12/22 18:40 unknown) Dose: 1 mg (unknown) (no (unknown) (unknown) Last Admin: (units (un known) date) 07/12/22 18:56 unknown) Dose: Not Given (unknown) (no (unknown) (unknown) Last Admin: (units (un known) date) 07/12/22 19:48 unknown) Dose: 2 mg (unknown) (no (unknown) (unknown) Last Admin: (units (un known) date) 07/12/22 19:49 unknown) Dose: 100 mg (unknown) (no (unknown) (unknown) Last Admin: (units (un known) date) 07/13/22 02:11 unknown) Dose: 500 mg (unknown) (no (unknown) (unknown) Last Admin: (units (un known) date) 07/13/22 03:36 unknown) Dose: 2 mg (unknown) (no (unknown) (unknown) Last Admin: (units (un known) date) 07/13/22 06:01 unknown) Dose: Not Given (unknown) (no (unknown) (unknown) Librium but she (units (unknown) date) does not have this unknown) medicine with her, she only has the Seroquel. (unknown) (no (unknown) (unknown) Lorazepam (units (unkn own) date) (Lorazepam 0.5 Mg unknown) Tablet) 1 mg PO NOW ONE (unknown) (no (unknown) (unknown) Lorazepam (units (unkn own) date) (Lorazepam 0.5 Mg unknown) Tablet) 2 mg PO NOW ONE (unknown) (no (unknown) (unknown) Lorazepam (units (unkn own) date) (Lorazepam 2 Mg/Ml unknown) Inj) 2 mg IV NOW ONE (unknown) (no (unknown) (unknown) Lymph # (Auto) (units (unknown) date) ([id number]) /uL unknown) (unknown) (no (unknown) (unknown) Lymph # (Auto) (units (unknown) date) 1700 ([id number]) unknown) /uL (unknown) (no (unknown) (unknown) Lymph % (Auto) (units (unknown) date) (25-40) % unknown) (unknown) (no (unknown) (unknown) Lymph % (Auto) (units (unknown) date) 50.6 H (25-40) % unknown) (unknown) (no (unknown) (unknown) MCH (26-34) PG (units (unknown) date) unknown) (unknown) (no (unknown) (unknown) MCH 26.0 (26-34) (units (unknown) date) PG unknown) (unknown) (no (unknown) (unknown) MCHC (30-36) % (units (unknown) date) unknown) (unknown) (no (unknown) (unknown) MCHC 32.7 (30-36) (units (unknown) date) % unknown) (unknown) (no (unknown) (unknown) MCV (80-100) fL (units (unknown) date) unknown) (unknown) (no (unknown) (unknown) MCV 79.5 L (units (unk nown) date) (80-100) fL unknown) (unknown) (no (unknown) (unknown) MDM - Alcohol (units ( unknown) date) unknown) (unknown) (no (unknown) (unknown) MDM Narrative (units ( unknown) date) unknown) (unknown) (no (unknown) (unknown) MIPS: This (units (unk nown) date) encounter doesn't unknown) have any diagnosis' associated with MIPS criteria. (unknown) (no (unknown) (unknown) MSK: moves all (units (unknown) date) extremities, unknown) neurovascularly intact, no weakness, normal tone no (unknown) (no (unknown) (unknown) Medical History (units (unknown) date) (Reviewed 07/12/22 unknown) @ 17:50 by Juliet Paz [facility]) (unknown) (no (unknown) (unknown) Medical decision (units (unknown) date) making narrative: unknown) (unknown) (no (unknown) (unknown) Medication (units (unk nown) date) Instructions unknown) Recorded Confirmed (unknown) (no (unknown) (unknown) Medication (units (unk nown) date) Instructions unknown) Recorded (unknown) (no (unknown) (unknown) Menometrorrhagia (units (unknown) date) unknown) (unknown) (no (unknown) (unknown) Mode of arrival: (units (unknown) date) Ambulatory unknown) (unknown) (no (unknown) (unknown) Yates # (Auto) (units ( unknown) date) (0-900) /uL unknown) (unknown) (no (unknown) (unknown) Yates # (Auto) 100 (units (unknown) date) (0-900) /uL unknown) (unknown) (no (unknown) (unknown) Yates % (Auto) (units ( unknown) date) (3-14) % unknown) (unknown) (no (unknown) (unknown) Yates % (Auto) 2.7 (units (unknown) date) L (3-14) % unknown) (unknown) (no (unknown) (unknown) Mother Diabetes (units (unknown) date) mellitus unknown) (unknown) (no (unknown) (unknown) Narrative (units (unkn own) date) unknown) (unknown) (no (unknown) (unknown) Nausea/vomiting ?> (units (unknown) date) 0 = No nausea and unknown) no vomiting (unknown) (no (unknown) (unknown) Neuro: normal (units ( unknown) date) speech and unknown) cognition, A+O x3, ambulatory, clear speech (unknown) (no (unknown) (unknown) Neut # (Auto) (units ( unknown) date) ([id number]) /uL unknown) (unknown) (no (unknown) (unknown) Neut # (Auto) 1500 (units (unknown) date) ([id number]) /uL unknown) (unknown) (no (unknown) (unknown) Neut % (Auto) (units ( unknown) date) (50-75) % unknown) (unknown) (no (unknown) (unknown) Neut % (Auto) 45.5 (units (unknown) date) L (50-75) % unknown) (unknown) (no (unknown) (unknown) No Action (units (unkn own) date) unknown) (unknown) (no (unknown) (unknown) Obesity (units (unkno wn) date) unknown) (unknown) (no (unknown) (unknown) Ondansetron HCl (units (unknown) date) (Ondansetron 4 Mg unknown) Odt) 4 mg SL NOW ONE (unknown) (no (unknown) (unknown) Ondansetron HCl (units (unknown) date) (Ondansetron 4 Mg/2 unknown) Ml Inj) 4 mg IV Q6HR PRN (unknown) (no (unknown) (unknown) Ordered: (units (unkno wn) date) unknown) (unknown) (no (unknown) (unknown) Orders (units (unkno wn) date) unknown) (unknown) (no (unknown) (unknown) Orientation/cloudi (units (unknown) date) ng of sensorium ?> unknown) 0 = Oriented, can do serial additions (unknown) (no (unknown) (unknown) Over the course of (units (unknown) date) the night we have unknown) called various other facilities and they (unknown) (no (unknown) (unknown) Overweight (units (unk nown) date) unknown) (unknown) (no (unknown) (unknown) Oxygen Delivery (units (unknown) date) Method Room Air unknown) 07/12/22 16:10 (unknown) (no (unknown) (unknown) Oxygen Delivery (units (unknown) date) Method Room Air unknown) Room Air (unknown) (no (unknown) (unknown) Oxygen Delivery (units (unknown) date) Method unknown) (unknown) (no (unknown) (unknown) PRN Reason: Nausea (units (unknown) date) And Vomiting unknown) (unknown) (no (unknown) (unknown) Paroxysmal sweats (units (unknown) date) ?> 0 = No sweat unknown) visible (unknown) (no (unknown) (unknown) Patient (units (unkno wn) date) Disposition: unknown) Admitted As Inpatient (unknown) (no (unknown) (unknown) Patient History (units (unknown) date) unknown) (unknown) (no (unknown) (unknown) Patient has (units (un known) date) allergy to Reglan unknown) and hydrocodone. She denies urinary frequency, (unknown) (no (unknown) (unknown) Patient's CIWA at (units (unknown) date) 2019 is 12, I unknown) ordered for her 2 more mg of lorazepam p.o., (unknown) (no (unknown) (unknown) Patient: (units (unkno wn) date) Sarah Connors R unknown) MR#: M (unknown) (no (unknown) (unknown) Patients with (units ( unknown) date) scores >= may unknown) require medication for withdrawal. (unknown) (no (unknown) (unknown) Pertinent lab (units ( unknown) date) findings reviewed: unknown) CBC is pertinent for mild leukopenia of 3.3, (unknown) (no (unknown) (unknown) Plt Count (units (unkn own) date) (150-400) X103/uL unknown) (unknown) (no (unknown) (unknown) Plt Count 226 (units ( unknown) date) (150-400) X103/uL unknown) (unknown) (no (unknown) (unknown) Point of Care (units ( unknown) date) Testing unknown) (unknown) (no (unknown) (unknown) Potassium (units (unkn own) date) (3.4-5.1) mmol/L unknown) (unknown) (no (unknown) (unknown) Potassium 3.9 (units ( unknown) date) (3.4-5.1) mmol/L unknown) (unknown) (no (unknown) (unknown) Test (units (unknown) date) Results Negative unknown) (unknown) (no (unknown) (unknown) Prescriptions: (units (unknown) date) unknown) (unknown) (no (unknown) (unknown) Previous Rx's (units ( unknown) date) unknown) (unknown) (no (unknown) (unknown) Psych: mental (units ( unknown) date) status is intact, unknown) patient has a normal affect although she is (unknown) (no (unknown) (unknown) Pulse Oximetry 97 (units (unknown) date) 100 unknown) (unknown) (no (unknown) (unknown) Pulse Oximetry 98 (units (unknown) date) 97 96 unknown) (unknown) (no (unknown) (unknown) Pulse Oximetry 99 (units (unknown) date) 07/12/22 16:10 unknown) (unknown) (no (unknown) (unknown) Pulse Oximetry 99 (units (unknown) date) unknown) (unknown) (no (unknown) (unknown) Pulse Rate 82 (units ( unknown) date) 07/12/22 16:10 unknown) (unknown) (no (unknown) (unknown) Pulse Rate 90 (units ( unknown) date) unknown) (unknown) (no (unknown) (unknown) Pulse Rate 94 H 92 (units (unknown) date) H 88 unknown) (unknown) (no (unknown) (unknown) Pulse Rate 97 H 87 (units (unknown) date) unknown) (unknown) (no (unknown) (unknown) Questions are (units ( unknown) date) addressed and there unknown) is agreement with the plan and for follow-up. (unknown) (no (unknown) (unknown) RBC (4.0-5.2) (units ( unknown) date) X106/uL unknown) (unknown) (no (unknown) (unknown) RBC 4.44 (4.0-5.2) (units (unknown) date) X106/uL unknown) (unknown) (no (unknown) (unknown) RDW (11.6-14.8) % (units (unknown) date) unknown) (unknown) (no (unknown) (unknown) RDW 17.3 H (units (unk nown) date) (11.6-14.8) % unknown) (unknown) (no (unknown) (unknown) RESULT SUMMARY: (units (unknown) date) unknown) (unknown) (no (unknown) (unknown) ROS Unobtainable: (units (unknown) date) All systems unknown) reviewed + are unremarkable except as noted in HPI (unknown) (no (unknown) (unknown) Referrals: (units (unk nown) date) unknown) (unknown) (no (unknown) (unknown) Related Data (units (u nknown) date) unknown) (unknown) (no (unknown) (unknown) Respiratory Rate (units (unknown) date) 14 07/12/22 16:10 unknown) (unknown) (no (unknown) (unknown) Respiratory Rate (units (unknown) date) 16 18 unknown) (unknown) (no (unknown) (unknown) Respiratory Rate (units (unknown) date) unknown) (unknown) (no (unknown) (unknown) Respiratory: (units (u nknown) date) normal effort, able unknown) to speak in complete sentences, without (unknown) (no (unknown) (unknown) Review of Systems (units (unknown) date) unknown) (unknown) (no (unknown) (unknown) Reviewed vitals (units (unknown) date) signs and nursing unknown) notes. (unknown) (no (unknown) (unknown) S/P myringotomy (units (unknown) date) with insertion of unknown) tube (unknown) (no (unknown) (unknown) SARS-CoV-2 (PCR) (units (unknown) date) (Negative) unknown) (unknown) (no (unknown) (unknown) SARS-CoV-2 (PCR) (units (unknown) date) Negative (Negative) unknown) (unknown) (no (unknown) (unknown) (spontaneous (units (unknown) date) vaginal delivery) unknown) (-09/05/18) (unknown) (no (unknown) (unknown) Salicylates < 1.0 (units (unknown) date) (<20) mg/dL unknown) (unknown) (no (unknown) (unknown) Salicylates (<20) (units (unknown) date) mg/dL unknown) (unknown) (no (unknown) (unknown) She was given a (units (unknown) date) couple water, a unknown) diet order was ordered however they may not (unknown) (no (unknown) (unknown) Signed By: (units (unk nown) date) unknown) (unknown) (no (unknown) (unknown) Skin: brisk (units (un known) date) capillary refill, unknown) without pallor or erythema (unknown) (no (unknown) (unknown) Smoker (units (unkno wn) date) unknown) (unknown) (no (unknown) (unknown) [place] and (units (unknown) date) [facility] in the unknown) past. She has been sober for a total of 18 (unknown) (no (unknown) (unknown) Smoking Status: (units (unknown) date) Former smoker unknown) (unknown) (no (unknown) (unknown) Social History (units (unknown) date) (Reviewed 07/12/22 unknown) @ 17:50 by Juliet Paz [facility]) (unknown) (no (unknown) (unknown) Social (units (unkno wn) date) considerations that unknown) may affect disposition: none (unknown) (no (unknown) (unknown) Sodium (137-145) (units (unknown) date) mmol/L unknown) (unknown) (no (unknown) (unknown) Sodium 140 (units (unk nown) date) (137-145) mmol/L unknown) (unknown) (no (unknown) (unknown) Sodium Chloride (units (unknown) date) (Normal Saline unknown) 0.9%) 1,000 mls @ 1,000 mls/hr IV BOLUS ONE (unknown) (no (unknown) (unknown) Source: patient (units (unknown) date) unknown) (unknown) (no (unknown) (unknown) Stated Complaint: (units (unknown) date) Stress/Depression unknown) (unknown) (no (unknown) (unknown) Stop: 07/12/22 (units (unknown) date) 17:33 unknown) (unknown) (no (unknown) (unknown) Stop: 07/12/22 (units (unknown) date) 17:45 unknown) (unknown) (no (unknown) (unknown) Stop: 07/12/22 (units (unknown) date) 18:28 unknown) (unknown) (no (unknown) (unknown) Stop: 07/12/22 (units (unknown) date) 18:31 unknown) (unknown) (no (unknown) (unknown) Stop: 07/12/22 (units (unknown) date) 19:25 unknown) (unknown) (no (unknown) (unknown) Stop: 07/12/22 (units (unknown) date) 20:03 unknown) (unknown) (no (unknown) (unknown) Stop: 07/12/22 (units (unknown) date) 20:17 unknown) (unknown) (no (unknown) (unknown) Stop: 07/13/22 (units (unknown) date) 06:03 unknown) (unknown) (no (unknown) (unknown) Substance Use (units ( unknown) date) Type: does not use unknown) (unknown) (no (unknown) (unknown) Surgical History (units (unknown) date) (Reviewed 07/12/22 unknown) @ 17:50 by Juliet Paz [facility]) (unknown) (no (unknown) (unknown) TSH (0.47-4.68) (units (unknown) date) uIU/mL unknown) (unknown) (no (unknown) (unknown) TSH 1.24 (units (unkno wn) date) (0.47-4.68) uIU/mL unknown) (unknown) (no (unknown) (unknown) Tactile (units (unkno wn) date) disturbances ?> 1 = unknown) Very mild itching, pin and needles, burning, or (unknown) (no (unknown) (unknown) Temperature 97.2 F (units (unknown) date) L 07/12/22 16:10 unknown) (unknown) (no (unknown) (unknown) Thiamine HCl (units (u nknown) date) (Thiamine 100 Mg unknown) Tablet) 100 mg PO NOW ONE (unknown) (no (unknown) (unknown) Thiamine HCl 200 (units (unknown) date) mg/ Sodium unknown) (Chloride) 102 mls @ 408 mls/hr IV NOW ONE (unknown) (no (unknown) (unknown) This is a (units (unkn own) date) 31-year-old female unknown) with history of alcohol abuse and appears to have (unknown) (no (unknown) (unknown) Time Seen by (units (u nknown) date) Provider: 07/12/22 unknown) 17:05 (unknown) (no (unknown) (unknown) Total Bilirubin (units (unknown) date) (0.2-1.3) mg/dL unknown) (unknown) (no (unknown) (unknown) Total Bilirubin (units (unknown) date) 0.4 (0.2-1.3) mg/dL unknown) (unknown) (no (unknown) (unknown) Total Protein (units ( unknown) date) (6.3-8.2) g/dL unknown) (unknown) (no (unknown) (unknown) Total Protein 7.3 (units (unknown) date) (6.3-8.2) g/dL unknown) (unknown) (no (unknown) (unknown) Tremor ?> 1 = Not (units (unknown) date) visible, but can be unknown) felt fingertip to fingertip (unknown) (no (unknown) (unknown) U Benzodiazepines (units (unknown) date) Scrn (Negative) unknown) (unknown) (no (unknown) (unknown) U Benzodiazepines (units (unknown) date) Scrn Negative unknown) (Negative) (unknown) (no (unknown) (unknown) U Marijuana (THC) (units (unknown) date) Screen (Negative) unknown) (unknown) (no (unknown) (unknown) U Marijuana (THC) (units (unknown) date) Screen Negative unknown) (Negative) (unknown) (no (unknown) (unknown) U Methamphetamines (units (unknown) date) Scrn (Negative) unknown) (unknown) (no (unknown) (unknown) U Methamphetamines (units (unknown) date) Scrn Negative unknown) (Negative) (unknown) (no (unknown) (unknown) U Opiates 300ng/mL (units (unknown) date) cut (Negative) unknown) (unknown) (no (unknown) (unknown) U Opiates 300ng/mL (units (unknown) date) cut Negative unknown) (Negative) (unknown) (no (unknown) (unknown) U Tricyclic (units (un known) date) Antidepress unknown) (Negative) (unknown) (no (unknown) (unknown) U Tricyclic (units (un known) date) Antidepress unknown) Negative (Negative) (unknown) (no (unknown) (unknown) Ur Amphetamines (units (unknown) date) Screen (Negative) unknown) (unknown) (no (unknown) (unknown) Ur Amphetamines (units (unknown) date) Screen Negative unknown) (Negative) (unknown) (no (unknown) (unknown) Ur Barbiturates (units (unknown) date) Screen (Negative) unknown) (unknown) (no (unknown) (unknown) Ur Barbiturates (units (unknown) date) Screen Negative unknown) (Negative) (unknown) (no (unknown) (unknown) Ur Culture (units (unk nown) date) Indicated? Specimen unknown) cultured (unknown) (no (unknown) (unknown) Ur Culture (units (unk nown) date) Indicated? unknown) (unknown) (no (unknown) (unknown) Ur MDMA Scrn (units (u nknown) date) (Ecstasy) unknown) (Negative) (unknown) (no (unknown) (unknown) Ur MDMA Scrn (units (u nknown) date) (Ecstasy) Negative unknown) (Negative) (unknown) (no (unknown) (unknown) Ur Oxycodone (units (u nknown) date) Screen (Negative) unknown) (unknown) (no (unknown) (unknown) Ur Oxycodone (units (u nknown) date) Screen Negative unknown) (Negative) (unknown) (no (unknown) (unknown) Ur Phencyclidine (units (unknown) date) Scrn (Negative) unknown) (unknown) (no (unknown) (unknown) Ur Phencyclidine (units (unknown) date) Scrn Negative unknown) (Negative) (unknown) (no (unknown) (unknown) Ur Squamous Epith (units (unknown) date) Cells (0-5/HPF) unknown) (unknown) (no (unknown) (unknown) Ur Squamous Epith (units (unknown) date) Cells 1-5 /hpf unknown) (0-5/HPF) (unknown) (no (unknown) (unknown) Urine Bacteria (units (unknown) date) (None) unknown) (unknown) (no (unknown) (unknown) Urine Bacteria (units (unknown) date) Many (>30) H (None) unknown) (unknown) (no (unknown) (unknown) Urine Cocaine (units ( unknown) date) Screen (Negative) unknown) (unknown) (no (unknown) (unknown) Urine Cocaine (units ( unknown) date) Screen Negative unknown) (Negative) (unknown) (no (unknown) (unknown) Urine Dip (units (unkn own) date) unknown) (unknown) (no (unknown) (unknown) Urine Methadone (units (unknown) date) Screen (Negative) unknown) (unknown) (no (unknown) (unknown) Urine Methadone (units (unknown) date) Screen Negative unknown) (Negative) (unknown) (no (unknown) (unknown) Urine RBC (units (unkn own) date) (0-5/HPF) unknown) (unknown) (no (unknown) (unknown) Urine RBC 1-5/hpf (units (unknown) date) (0-5/HPF) unknown) (unknown) (no (unknown) (unknown) Urine Specific (units (unknown) date) [place] 1.015 unknown) (unknown) (no (unknown) (unknown) Urine WBC (units (unkn own) date) (0-5/HPF) unknown) (unknown) (no (unknown) (unknown) Urine WBC 1-5/hpf (units (unknown) date) (0-5/HPF) unknown) (unknown) (no (unknown) (unknown) Urine microscopy (units (unknown) date) with many bacteria, unknown) pending for culture, will treat for acute (unknown) (no (unknown) (unknown) Visual (units (unkno wn) date) disturbances ?> 1 = unknown) Very mild sensitivity (unknown) (no (unknown) (unknown) Vital Signs - 8 hr (units (unknown) date) unknown) (unknown) (no (unknown) (unknown) Vital Signs (units (un known) date) unknown) (unknown) (no (unknown) (unknown) Vital signs: (units (u nknown) date) unknown) (unknown) (no (unknown) (unknown) WBC (4.5-11.0) (units (unknown) date) X103/uL unknown) (unknown) (no (unknown) (unknown) WBC 3.3 L (units (unkn own) date) (4.5-11.0) X103/uL unknown) (unknown) (no (unknown) (unknown) [1900] ([place]) (units (unknown) date) Patient received in unknown) sign out [employer]. I have reviewed the (unknown) (no (unknown) (unknown) [Embedded Image (units (unknown) date) Not Available] unknown) (unknown) (no (unknown) (unknown) [METOCLOPRAMIDE] (units (unknown) date) unknown) (unknown) (no (unknown) (unknown) acceptable. She is (units (unknown) date) nauseated, without unknown) vomiting, received Zofran previously and (unknown) (no (unknown) (unknown) acetaminophen 325 (units (unknown) date) mg tablet 325 mg PO unknown) Q6H PRN pain #20 tabs 02/05/20 (unknown) (no (unknown) (unknown) acetaminophen (units ( unknown) date) [Tylenol] 325 mg unknown) tablet (unknown) (no (unknown) (unknown) alcohol in 300s, (units (unknown) date) she was last here unknown) in the emergency department in May of (unknown) (no (unknown) (unknown) alcohol intake (units (unknown) date) frequency: 3 or unknown) more drinks per day (unknown) (no (unknown) (unknown) alcohol intake: (units (unknown) date) former unknown) (unknown) (no (unknown) (unknown) alcohol level (units ( unknown) date) below 0.08 to be unknown) considered for placement there. (unknown) (no (unknown) (unknown) and below (units (unkn own) date) unknown) (unknown) (no (unknown) (unknown) and she drinking (units (unknown) date) daily since this unknown) happened. She wants rehab. She has been (unknown) (no (unknown) (unknown) anxious, (units (unkno wn) date) intoxicated and now unknown) withdrawing. pleasant and cooperative (unknown) (no (unknown) (unknown) are currently no (units (unknown) date) available beds. unknown) Patient resting comfortably (unknown) (no (unknown) (unknown) arrhythmia, or (units (unknown) date) acute ischemic unknown) changes. (unknown) (no (unknown) (unknown) at extension and (units (unknown) date) states that she unknown) feels symptoms of alcohol withdrawal. Denies (unknown) (no (unknown) (unknown) being depressed at (units (unknown) date) this time, CIWA is unknown) an 8. (unknown) (no (unknown) (unknown) bpm with rightward (units (unknown) date) axis and normal unknown) intervals. No STEMI, ST segment changes, (unknown) (no (unknown) (unknown) clinical course (units (unknown) date) and performed an unknown) independent history and physical exam. Patient (unknown) (no (unknown) (unknown) current (units (unkno wn) date) occupational unknown) exposures/hazards: Yes (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 with Pandemic ) (unknown) (no (unknown) (unknown) cystitis (units (unkno wn) date) unknown) (unknown) (no (unknown) (unknown) cystitis, she is (units (unknown) date) p.o. tolerant, unknown) still pending lab work (unknown) (no (unknown) (unknown) deliver since it (units (unknown) date) is after 17:00 and unknown) the diet order was ordered at 17:30. Samira (unknown) (no (unknown) (unknown) detox 11 times, (units (unknown) date) states that it has unknown) taking Antabuse, Librium, Ativan, she denies (unknown) (no (unknown) (unknown) detox as well. (units (unknown) date) unknown) (unknown) (no (unknown) (unknown) diarrhea or (units (un known) date) current stool unknown) changes. (unknown) (no (unknown) (unknown) diphenhydramine (units (unknown) [...] mg unknown) capsule (unknown) (no (unknown) (unknown) draw her labs (units ( unknown) date) unknown) (unknown) (no (unknown) (unknown) education level: (units (unknown) date) college unknown) (unknown) (no (unknown) (unknown) electrolyte (units (un known) date) abnormalities. unknown) (unknown) (no (unknown) (unknown) emergency (units (unkn own) date) department on unknown) 06/18/2022 and a few days prior to that with a blood (unknown) (no (unknown) (unknown) extremities (units (un known) date) unknown) (unknown) (no (unknown) (unknown) renee/zoroastrianism: (units (unknown) date) Buddhist unknown) (unknown) (no (unknown) (unknown) fidgeting (units (unkn own) date) unknown) (unknown) (no (unknown) (unknown) fluid, EtOH, and (units (unknown) date) CIWA, ordered 2 mg unknown) of IV lorazepam for patient's symptoms, (unknown) (no (unknown) (unknown) for alcohol (units (un known) date) related complaints unknown) through 2019, and she presented to the [facility] (unknown) (no (unknown) (unknown) from social work (units (unknown) date) is aware and unknown) pending her lab work to arrange for inpatient (unknown) (no (unknown) (unknown) go to detox. She (units (unknown) date) is currently unknown) intoxicated endorses symptoms of alcohol (unknown) (no (unknown) (unknown) her urine (units (unkn own) date) microscopy came unknown) back positive for many bacteria, will treat for acute (unknown) (no (unknown) (unknown) household members: (units (unknown) date) spouse and children unknown) (unknown) (no (unknown) (unknown) hydrated. (units (unkn own) date) unknown) (unknown) (no (unknown) (unknown) hydrocodone (units (un known) date) [HYDROCODONE] unknown) AdvReac Unknown VOMITING Verified 07/12/22 16:18 (unknown) (no (unknown) (unknown) ibuprofen 600 mg (units (unknown) date) Tablet unknown) (unknown) (no (unknown) (unknown) ibuprofen 600 mg (units (unknown) date) tablet 600 mg PO unknown) Q6HR PRN Pain, Mild 07/04/20 (unknown) (no (unknown) (unknown) intoxicated, (units (u nknown) date) pleasant, unknown) interactive and comfortable although active, anxious and (unknown) (no (unknown) (unknown) is 338, COVID PCR (units (unknown) date) was negative, drug unknown) screen is negative for all tested agents, (unknown) (no (unknown) (unknown) is allergic to (units ( unknown) date) Reglan, will dose unknown) with another 5 mg of Zofran, no QT prolongation (unknown) (no (unknown) (unknown) knowing if she is (units (unknown) date) had phenobarbital unknown) in the past. (unknown) (no (unknown) (unknown) limited history (units (unknown) date) currently due to unknown) intoxication. She states that she is recently (unknown) (no (unknown) (unknown) lorazepam at 2 mg (units (unknown) date) for this. unknown) (unknown) (no (unknown) (unknown) marital status: (units (unknown) date) unknown) (unknown) (no (unknown) (unknown) metoclopramide (units (unknown) date) Allergy Mild unknown) RASH/HIVES Verified 07/12/22 16:18 (unknown) (no (unknown) (unknown) mild anemia but (units (unknown) date) improved from her unknown) prior with H+H of 11.5 and 35.3, no evidence (unknown) (no (unknown) (unknown) months. She denies (units (unknown) date) any recent unknown) injuries, denies chance of , denies any (unknown) (no (unknown) (unknown) nausea vomiting or (units (unknown) date) abdominal pain at unknown) this time. 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 (units (u nknown) date) Ativan for her unknown) symptoms and ask our into call lab to come up and (unknown) (no (unknown) (unknown) other ingestions, (units (unknown) date) is pleasant, unknown) seeking help with her intoxication and wishes to (unknown) (no (unknown) (unknown) patient's (units (unknown) date) is at the bedside unknown) offering support, she raises nausea, another (unknown) (no (unknown) (unknown) prenat.vits,otis,mi (units (unknown) date) [id number] 1 tab unknown) PO DAILY 12/30/19 07/03/20 (unknown) (no (unknown) (unknown) prenat.vits,otis,mi (units (unknown) date) [id number] Tablet unknown) (unknown) (no (unknown) (unknown) relapsed due to a (units (unknown) date) divorce with her unknown) . She used to be a frequent visitor (unknown) (no (unknown) (unknown) resting (units (unkno wn) date) comfortably, unknown) currently pursuing [place] [facility] [place] (unknown) (no (unknown) (unknown) scores of 10 or (units (unknown) date) less by 4 unknown) hours a piece and must also have blood (unknown) (no (unknown) (unknown) second hand (units (un known) date) exposure: No unknown) (growing up as a child - not currently) (unknown) (no (unknown) (unknown) significant tremor (units (unknown) date) or tongue unknown) fasciculation, she has a mild tremor with her arms (unknown) (no (unknown) (unknown) social work and (units (unknown) date) orders are pending unknown) (unknown) (no (unknown) (unknown) special renee (units ( unknown) date) needs: No unknown) (unknown) (no (unknown) (unknown) substance abuse, (units (unknown) date) alcohol unknown) intoxication, psychosis, mood disorder, depression (unknown) (no (unknown) (unknown) substance use (units ( unknown) date) type: does not use unknown) (unknown) (no (unknown) (unknown) tablet vomiting (units (unknown) date) #14 tabs unknown) (unknown) (no (unknown) (unknown) tablet vomiting (units (unknown) date) #20 tabs unknown) (unknown) (no (unknown) (unknown) tablet vomiting (units (unknown) date) #30 tabs unknown) (unknown) (no (unknown) (unknown) tenderness or (units ( unknown) date) exquisite unknown) tenderness with exam. (unknown) (no (unknown) (unknown) that she drinks (units (unknown) date) vodka and admits to unknown) drinking heavily today, states that she took (unknown) (no (unknown) (unknown) the bottle upside (units (unknown) date) down and started unknown) checking from it. She states that she drank (unknown) (no (unknown) (unknown) thyroid studies (units (unknown) date) are still pending. unknown) No significant findings to her CMP. No (unknown) (no (unknown) (unknown) tramadol 50 mg (units (unknown) date) tablet 50 mg PO Q6H unknown) PRN pain #10 tabs 06/12/22 (unknown) (no (unknown) (unknown) tramadol 50 mg (units (unknown) date) tablet unknown) (unknown) (no (unknown) (unknown) tremors, no (units (un known) date) tachycardia, her unknown) CIWA is currently 10, ordered another p.o. dose of (unknown) (no (unknown) (unknown) urgency or flank (units (unknown) date) pain, endorses unknown) nausea without vomiting. Patient has been to (unknown) (no (unknown) (unknown) well as prior (units ( unknown) date) records if unknown) available. (unknown) (no (unknown) (unknown) wheezing, stridor, (units (unknown) date) or abnormal breath unknown) sounds. No retractions or tachypnea. (unknown) (no (unknown) (unknown) withdrawal. (units (un known) date) Patient states that unknown) she takes Seroquel 300 mg at night as well as Result panel 2365 (unknown) (no (unknown) (unknown) (no value) (units (unk nown) date) unknown) (unknown) (no (unknown) (unknown) <Electronically (units (unknown) date) signed by Reinaldo west) Miguel Arthur> (unknown) (no (unknown) (unknown) <Juliet Paz, (units (unknown) date) [facility] - Last Filed: unknown) 07/12/22 20:27> (unknown) (no (unknown) (unknown) <Reinaldo Arthur DO (units (unknown) date) - Last Filed: unknown) 07/13/22 06:31> (unknown) (no (unknown) (unknown) (1-3) #30 tabs (units (unknown) date) unknown) (unknown) (no (unknown) (unknown) (Benadryl) caps (units (unknown) date) unknown) (unknown) (no (unknown) (unknown) (Colace) (units (unkno wn) date) unknown) (unknown) (no (unknown) (unknown) (Tylenol) (units (unkn own) date) unknown) (unknown) (no (unknown) (unknown) [id number] (units (unkn own) date) unknown) (unknown) (no (unknown) (unknown) 01:28 07/13/22 (units (unknown) date) unknown) (unknown) (no (unknown) (unknown) 01:50 (units (unkno wn) date) unknown) (unknown) (no (unknown) (unknown) 02:00 07/13/22 (units (unknown) date) unknown) (unknown) (no (unknown) (unknown) 02:14 07/13/22 (units (unknown) date) unknown) (unknown) (no (unknown) (unknown) 02:14 (units (unkno wn) date) unknown) (unknown) (no (unknown) (unknown) 02:30 07/13/22 (units (unknown) date) unknown) (unknown) (no (unknown) (unknown) 07/12/22 07/12/22 (units (unknown) date) 07/12/22 unknown) Range/Units (unknown) (no (unknown) (unknown) 07/12/22 19:15 (units (unknown) date) unknown) (unknown) (no (unknown) (unknown) 07/12/22 (units (unkno wn) date) unknown) (unknown) (no (unknown) (unknown) 07/13/22 0631 (units ( unknown) date) unknown) (unknown) (no (unknown) (unknown) 07/13/22 (units (unkno wn) date) unknown) (unknown) (no (unknown) (unknown) 03:00 07/13/22 (units (unknown) date) unknown) (unknown) (no (unknown) (unknown) 03:30 (units (unkno wn) date) unknown) (unknown) (no (unknown) (unknown) 04:00 07/13/22 (units (unknown) date) unknown) (unknown) (no (unknown) (unknown) 04:30 07/13/22 (units (unknown) date) unknown) (unknown) (no (unknown) (unknown) 0530 -patient (units (u nknown) date) beginning to feel a unknown) bit agitated and restless, she is tachycardic. (unknown) (no (unknown) (unknown) 0545 -IV placed, (units (unknown) date) IV Ativan ordered. unknown) Patient with increasing signs of alcohol (unknown) (no (unknown) (unknown) 05:00 (units (unkno wn) date) unknown) (unknown) (no (unknown) (unknown) 05:30 07/13/22 (units (unknown) date) unknown) (unknown) (no (unknown) (unknown) 05:54 07/13/22 (units (unknown) date) unknown) (unknown) (no (unknown) (unknown) 05:54 (units (unkno wn) date) unknown) (unknown) (no (unknown) (unknown) 06:00 07/13/22 (units (unknown) date) unknown) (unknown) (no (unknown) (unknown) 06:00 (units (unkno wn) date) unknown) (unknown) (no (unknown) (unknown) 16:32 16:32 16:32 (units (unknown) date) unknown) (unknown) (no (unknown) (unknown) 1836 patient still (units (unknown) date) does not have an unknown) IV, has not received any IV fluid her (unknown) (no (unknown) (unknown) 1900 still no IV, (units (unknown) date) patient is p.o. unknown) challenging, she received her p.o. lorazepam, (unknown) (no (unknown) (unknown) 1929, patient now (units (unknown) date) feels depressed, unknown) she is lying in bed, feeling bad, has (unknown) (no (unknown) (unknown) 19:15 19:15 19:15 (units (unknown) date) unknown) (unknown) (no (unknown) (unknown) 1999 patient is (units (unknown) date) feeling better now, unknown) her lab work is starting to return and ETOH (unknown) (no (unknown) (unknown) 2002 patient (units (u nknown) date) requests to take unknown) her home dosing of Seroquel 300 mg, this is (unknown) (no (unknown) (unknown) 2022 with similar (units (unknown) date) symptoms. She comes unknown) in complaining of needing help, states (unknown) (no (unknown) (unknown) 0 -smoker point (units (unknown) date) called back and unknown) states that patient must have free CIWA (unknown) (no (unknown) (unknown) 23:30 07/13/22 (units (unknown) date) unknown) (unknown) (no (unknown) (unknown) 4 Zofran was (units (u nknown) date) ordered. So has not unknown) been given, patient is signed out to (unknown) (no (unknown) (unknown) 750 mL of time. (units (unknown) date) She just she has unknown) nothing to do but relapsed. This 3 weeks ago (unknown) (no (unknown) (unknown) 9 points (units (unkno wn) date) unknown) (unknown) (no (unknown) (unknown) ALT (<35) IU/L (units (unknown) date) unknown) (unknown) (no (unknown) (unknown) ALT 21 (<35) IU/L (units (unknown) date) unknown) (unknown) (no (unknown) (unknown) AST (14-36) IU/L (units (unknown) date) unknown) (unknown) (no (unknown) (unknown) AST 67 H (14-36) (units (unknown) date) IU/L unknown) (unknown) (no (unknown) (unknown) Acetaminophen < 10 (units (unknown) date) (10-30) ug/mL unknown) (unknown) (no (unknown) (unknown) Acetaminophen (units ( unknown) date) (10-30) ug/mL unknown) (unknown) (no (unknown) (unknown) Acute cystitis (units (unknown) date) unknown) (unknown) (no (unknown) (unknown) Admin: 07/12/22 (units (unknown) date) 19:47 Dose: 500 mg unknown) (unknown) (no (unknown) (unknown) Admit Date/Time: (units (unknown) date) 07/13/22 06:12 unknown) (unknown) (no (unknown) (unknown) Admit Provider: (units (unknown) date) Aide Haney unknown) (unknown) (no (unknown) (unknown) Age/Sex: 31 / F (units (unknown) date) unknown) (unknown) (no (unknown) (unknown) Agitation ?> 2 = (units (unknown) date) (More severe unknown) symptoms) (unknown) (no (unknown) (unknown) Albumin (3.5-5.0) (units (unknown) date) g/dL unknown) (unknown) (no (unknown) (unknown) Albumin 4.3 (units (un known) date) (3.5-5.0) g/dL unknown) (unknown) (no (unknown) (unknown) Albumin/Globulin (units (unknown) date) Ratio (1.0-2.8) unknown) (unknown) (no (unknown) (unknown) Albumin/Globulin (units (unknown) date) Ratio 1.4 (1.0-2.8) unknown) (unknown) (no (unknown) (unknown) Alcohol withdrawal (units (unknown) date) unknown) (unknown) (no (unknown) (unknown) Alcoholism (units (unk nown) date) unknown) (unknown) (no (unknown) (unknown) Alkaline (units (unkno wn) date) Phosphatase unknown) (38-126) U/L (unknown) (no (unknown) (unknown) Alkaline (units (unkno wn) date) Phosphatase 98 unknown) (38-126) U/L (unknown) (no (unknown) (unknown) Allergies (units (unkn own) date) unknown) (unknown) (no (unknown) (unknown) Allergy/AdvReac (units (unknown) date) Type Severity unknown) Reaction Status Date / Time (unknown) (no (unknown) (unknown) Anemia (-2018) (units (unknown) date) unknown) (unknown) (no (unknown) (unknown) Anxiety ?> 2 = (units (unknown) date) (More severe unknown) symptoms) (unknown) (no (unknown) (unknown) Auditory (units (unkno wn) date) disturbances ?> 1 = unknown) Very mild harshness or ability to frighten (unknown) (no (unknown) (unknown) BUN (7-17) mg/dL (units (unknown) date) unknown) (unknown) (no (unknown) (unknown) BUN 9 (7-17) mg/dL (units (unknown) date) unknown) (unknown) (no (unknown) (unknown) BUN/Creatinine (units (unknown) date) Ratio (6-22) unknown) (unknown) (no (unknown) (unknown) BUN/Creatinine (units (unknown) date) Ratio 11.0 (6-22) unknown) (unknown) (no (unknown) (unknown) Baso # (Auto) (units ( unknown) date) (0-100) /uL unknown) (unknown) (no (unknown) (unknown) Baso # (Auto) 0 (units (unknown) date) (0-100) /uL unknown) (unknown) (no (unknown) (unknown) Baso % (Auto) (units ( unknown) date) (0-2) % unknown) (unknown) (no (unknown) (unknown) Baso % (Auto) 0.9 (units (unknown) date) (0-2) % unknown) (unknown) (no (unknown) (unknown) Bedside Urine (units ( unknown) date) Bilirubin - unknown) Negative (unknown) (no (unknown) (unknown) Bedside Urine (units ( unknown) date) Glucose Negative unknown) (unknown) (no (unknown) (unknown) Bedside Urine (units ( unknown) date) Ketone - Negative unknown) (unknown) (no (unknown) (unknown) Bedside Urine (units ( unknown) date) Leukocytes - unknown) Negative (unknown) (no (unknown) (unknown) Bedside Urine (units ( unknown) date) Nitrite + Positive unknown) (unknown) (no (unknown) (unknown) Bedside Urine (units ( unknown) date) Occult Blood - unknown) Negative (unknown) (no (unknown) (unknown) Bedside Urine (units ( unknown) date) Protein - Negative unknown) (unknown) (no (unknown) (unknown) Bedside Urine (units ( unknown) date) Urobilinogen - unknown) Negative (unknown) (no (unknown) (unknown) Bedside Urine pH (units (unknown) date) 6.0 unknown) (unknown) (no (unknown) (unknown) Blood Pressure (units (unknown) date) 102/59 L unknown) (unknown) (no (unknown) (unknown) Blood Pressure (units (unknown) date) 112/62 07/12/22 unknown) 16:10 (unknown) (no (unknown) (unknown) Blood Pressure (units (unknown) date) 93/54 L unknown) (unknown) (no (unknown) (unknown) Blood Pressure (units (unknown) date) 99/52 L unknown) (unknown) (no (unknown) (unknown) Blood Pressure (units (unknown) date) 99/58 L unknown) (unknown) (no (unknown) (unknown) Blood Pressure (units (unknown) date) [Left Arm] 95/53 L unknown) (unknown) (no (unknown) (unknown) Blood Pressure (units (unknown) date) [Left Arm] unknown) (unknown) (no (unknown) (unknown) Blood Pressure (units (unknown) date) unknown) (unknown) (no (unknown) (unknown) CIWA is now worse (units (unknown) date) and she has unknown) tremors, anxiety is worsening and agitation, (unknown) (no (unknown) (unknown) CIWA-Ar for (units (un known) date) Alcohol Withdrawal unknown) from [facility] on 07/12/2022 (unknown) (no (unknown) (unknown) Calcium (8.4-10.2) (units (unknown) date) mg/dL unknown) (unknown) (no (unknown) (unknown) Calcium 8.0 L (units ( unknown) date) (8.4-10.2) mg/dL unknown) (unknown) (no (unknown) (unknown) Carbon Dioxide (units (unknown) date) (22-32) mmol/L unknown) (unknown) (no (unknown) (unknown) Carbon Dioxide 23 (units (unknown) date) (22-32) mmol/L unknown) (unknown) (no (unknown) (unknown) Cardiovascular: (units (unknown) date) Tachycardic rate unknown) and rhythm, no peripheral edema, warm (unknown) (no (unknown) (unknown) Cephalexin HCl (units (unknown) date) (Cephalexin 250 Mg unknown) Capsule) 500 mg PO Q6H SANDY (unknown) (no (unknown) (unknown) Chief Complaint: (units (unknown) date) Alcohol unknown) intoxication, seeking detox (unknown) (no (unknown) (unknown) Chief Complaint: (units (unknown) date) Toxicology Problem unknown) (unknown) (no (unknown) (unknown) Chloride (98-107) (units (unknown) date) mmol/L unknown) (unknown) (no (unknown) (unknown) Chloride 104 (units (u nknown) date) (98-107) mmol/L unknown) (unknown) (no (unknown) (unknown) Clinical (units (unkno wn) date) Impression: unknown) (unknown) (no (unknown) (unknown) Clinical decision (units (unknown) date) rules or scores unknown) evaluated: CIWA of 9 at 1753 (unknown) (no (unknown) (unknown) Course of care: (units (unknown) date) Patient is a unknown) difficult IV stick, ordered IV with lab work, (unknown) (no (unknown) (unknown) Course (units (unkno wn) date) unknown) (unknown) (no (unknown) (unknown) Creatinine (units (unk nown) date) (0.52-1.04) mg/dL unknown) (unknown) (no (unknown) (unknown) Creatinine 0.82 (units (unknown) date) (0.52-1.04) mg/dL unknown) (unknown) (no (unknown) (unknown) Samantha Arthur gave her (units (unknown) date) grilled cheese, unknown) soup, some juice and encouraged her to stay (unknown) (no (unknown) (unknown) : 1990 (units (unknown) date) Acct:[id number] unknown) (unknown) (no (unknown) (unknown) Date of Service: (units (unknown) date) 07/13/22 unknown) (unknown) (no (unknown) (unknown) Departure (units (unkn own) date) unknown) (unknown) (no (unknown) (unknown) Differential (units (u nknown) date) diagnoses include unknown) but are not limited to: Alcohol withdrawal, (unknown) (no (unknown) (unknown) Discharge Plan (units (unknown) date) unknown) (unknown) (no (unknown) (unknown) Discontinued (units (u nknown) date) Medications unknown) (unknown) (no (unknown) (unknown) Documented By: AP (units (unknown) date) unknown) (unknown) (no (unknown) (unknown) Documented By: KB (units (unknown) date) unknown) (unknown) (no (unknown) (unknown) Documented By: OW (units (unknown) date) unknown) (unknown) (no (unknown) (unknown) ECG Data (units (unkno wn) date) unknown) (unknown) (no (unknown) (unknown) EKG independently (units (unknown) date) reviewed by myself unknown) at 1830 reveals normal sinus rhythm at 72 (unknown) (no (unknown) (unknown) ER Physician: (units ( unknown) date) Reinaldo Arthur D.O. unknown) (unknown) (no (unknown) (unknown) Emergency Report (units (unknown) date) unknown) (unknown) (no (unknown) (unknown) Eos # (Auto) (units (u nknown) date) (0-450) /uL unknown) (unknown) (no (unknown) (unknown) Eos # (Auto) 0 (units (unknown) date) (0-450) /uL unknown) (unknown) (no (unknown) (unknown) Eos % (Auto) (2-4) (units (unknown) date) % unknown) (unknown) (no (unknown) (unknown) Eos % (Auto) 0.3 L (units (unknown) date) (2-4) % unknown) (unknown) (no (unknown) (unknown) Esterase (units (unkno wn) date) unknown) (unknown) (no (unknown) (unknown) Estimated GFR > 60 (units (unknown) date) (>60) mL/min unknown) (unknown) (no (unknown) (unknown) Estimated GFR (units ( unknown) date) (>60) mL/min unknown) (unknown) (no (unknown) (unknown) Ethyl Alcohol ( - (units (unknown) date) 10) mg/dL unknown) (unknown) (no (unknown) (unknown) Ethyl Alcohol 338 (units (unknown) date) H ( - 10) mg/dL unknown) (unknown) (no (unknown) (unknown) Exam Narrative: (units (unknown) date) unknown) (unknown) (no (unknown) (unknown) Exam (units (unkno wn) date) unknown) (unknown) (no (unknown) (unknown) Family History (units (unknown) date) (Reviewed 07/12/22 unknown) @ 17:50 by Juliet Paz [facility]) (unknown) (no (unknown) (unknown) Family/Other (units (u nknown) date) Alcoholism unknown) (unknown) (no (unknown) (unknown) Family/Other (units (u nknown) date) Diabetes mellitus unknown) (unknown) (no (unknown) (unknown) Father Alcoholism (units (unknown) date) unknown) (unknown) (no (unknown) (unknown) Folic Acid (Folic (units (unknown) date) Acid 1 Mg Tablet) 1 unknown) mg PO DAILY SANDY (unknown) (no (unknown) (unknown) Free T4 (units (unkno wn) date) (0.78-2.19) ng/dL unknown) (unknown) (no (unknown) (unknown) Free T4 0.93 (units (u nknown) date) (0.78-2.19) ng/dL unknown) (unknown) (no (unknown) (unknown) GI: abdomen soft, (units (unknown) date) nontender to unknown) palpation, nondistended, without masses, rebound (unknown) (no (unknown) (unknown) General (units (unkno wn) date) unknown) (unknown) (no (unknown) (unknown) General: (units (unkno wn) date) cooperative, unknown) comfortable, in no acute distress, well groomed, appears (unknown) (no (unknown) (unknown) Globulin (1.7-4.1) (units (unknown) date) g/dL unknown) (unknown) (no (unknown) (unknown) Globulin 3.0 (units (u nknown) date) (1.7-4.1) g/dL unknown) (unknown) (no (unknown) (unknown) Glucose (70-100) (units (unknown) date) mg/dL unknown) (unknown) (no (unknown) (unknown) Glucose 111 H (units ( unknown) date) (70-100) mg/dL [...] extraction (-2013) unknown) (unknown) (no (unknown) (unknown) HEENT: symmetrical (units (unknown) date) facial expressions, unknown) dry mucous membranes (unknown) (no (unknown) (unknown) HPI - Alcohol (units ( unknown) date) unknown) (unknown) (no (unknown) (unknown) HPI narrative: (units (unknown) date) unknown) (unknown) (no (unknown) (unknown) Hct (36-46) % (units ( unknown) date) unknown) (unknown) (no (unknown) (unknown) Hct 35.3 L (36-46) (units (unknown) date) % unknown) (unknown) (no (unknown) (unknown) Headache/fullness (units (unknown) date) in head ?> 1 = Very unknown) mild (unknown) (no (unknown) (unknown) Hematuria (units (unkn own) date) presence: without unknown) hematuria Qualified Code(s): N30.00 - Acute (unknown) (no (unknown) (unknown) Hgb (12.0-16.0) (units (unknown) date) g/dL unknown) (unknown) (no (unknown) (unknown) Hgb 11.5 L (units (unk nown) date) (12.0-16.0) g/dL unknown) (unknown) (no (unknown) (unknown) History of Present (units (unknown) date) Illness unknown) (unknown) (no (unknown) (unknown) Home Medications (units (unknown) date) unknown) (unknown) (no (unknown) (unknown) I have (units (unkno wn) date) independently unknown) reviewed the patient's vital signs and nursing notes as (unknown) (no (unknown) (unknown) INPUTS: (units (unkno wn) date) unknown) (unknown) (no (unknown) (unknown) Independent (units (un known) date) historian: Patient unknown) (unknown) (no (unknown) (unknown) Initial Vital (units ( unknown) date) Signs unknown) (unknown) (no (unknown) (unknown) Initial Vital (units ( unknown) date) Signs: unknown) (unknown) (no (unknown) (unknown) Insomnia (units (unkno wn) date) unknown) (unknown) (no (unknown) (unknown) Interpretation: (units (unknown) date) unknown) (unknown) (no (unknown) (unknown) [facility] (units (unknown) date) [address] unknown) [place] [address] (unknown) (no (unknown) (unknown) Lab Data (units (unkno wn) date) unknown) (unknown) (no (unknown) (unknown) Lab Results (units (un known) date) unknown) (unknown) (no (unknown) (unknown) Labs: (units (unkno wn) date) unknown) (unknown) (no (unknown) (unknown) Last Admin: (units (un known) date) 07/12/22 18:39 unknown) Dose: 4 mg (unknown) (no (unknown) (unknown) Last Admin: (units (un known) date) 07/12/22 18:40 unknown) Dose: 1 mg (unknown) (no (unknown) (unknown) Last Admin: (units (un known) date) 07/12/22 18:56 unknown) Dose: Not Given (unknown) (no (unknown) (unknown) Last Admin: (units (un known) date) 07/12/22 19:48 unknown) Dose: 2 mg (unknown) (no (unknown) (unknown) Last Admin: (units (un known) date) 07/12/22 19:49 unknown) Dose: 100 mg (unknown) (no (unknown) (unknown) Last Admin: (units (un known) date) 07/13/22 02:11 unknown) Dose: 500 mg (unknown) (no (unknown) (unknown) Last Admin: (units (un known) date) 07/13/22 03:36 unknown) Dose: 2 mg (unknown) (no (unknown) (unknown) Last Admin: (units (un known) date) 07/13/22 06:01 unknown) Dose: Not Given (unknown) (no (unknown) (unknown) Last Admin: (units (un known) date) 07/13/22 06:11 unknown) Dose: 2 mg (unknown) (no (unknown) (unknown) Last Admin: (units (un known) date) 07/13/22 06:22 unknown) Dose: 1,000 mls/hr (unknown) (no (unknown) (unknown) Librium but she (units (unknown) date) does not have this unknown) medicine with her, she only has the Seroquel. (unknown) (no (unknown) (unknown) Lorazepam (units (unkn own) date) (Lorazepam 0.5 Mg unknown) Tablet) 1 mg PO NOW ONE (unknown) (no (unknown) (unknown) Lorazepam (units (unkn own) date) (Lorazepam 0.5 Mg unknown) Tablet) 2 mg PO NOW ONE (unknown) (no (unknown) (unknown) Lorazepam (units (unkn own) date) (Lorazepam 2 Mg/Ml unknown) Inj) 2 mg IV NOW ONE (unknown) (no (unknown) (unknown) Lymph # (Auto) (units (unknown) date) (4341-6215) /uL unknown) (unknown) (no (unknown) (unknown) Lymph # (Auto) (units (unknown) date) 1700 ([id number]) unknown) /uL (unknown) (no (unknown) (unknown) Lymph % (Auto) (units (unknown) date) (25-40) % unknown) (unknown) (no (unknown) (unknown) Lymph % (Auto) (units (unknown) date) 50.6 H (25-40) % unknown) (unknown) (no (unknown) (unknown) MCH (26-34) PG (units (unknown) date) unknown) (unknown) (no (unknown) (unknown) MCH 26.0 (26-34) (units (unknown) date) PG unknown) (unknown) (no (unknown) (unknown) MCHC (30-36) % (units (unknown) date) unknown) (unknown) (no (unknown) (unknown) MCHC 32.7 (30-36) (units (unknown) date) % unknown) (unknown) (no (unknown) (unknown) MCV (80-100) fL (units (unknown) date) unknown) (unknown) (no (unknown) (unknown) MCV 79.5 L (units (unk nown) date) (80-100) fL unknown) (unknown) (no (unknown) (unknown) MDM - Alcohol (units ( unknown) date) unknown) (unknown) (no (unknown) (unknown) MDM Narrative (units ( unknown) date) unknown) (unknown) (no (unknown) (unknown) MIPS: This (units (unk nown) date) encounter doesn't unknown) have any diagnosis' associated with MIPS criteria. (unknown) (no (unknown) (unknown) MSK: moves all (units (unknown) date) extremities, unknown) neurovascularly intact, no weakness, normal tone no (unknown) (no (unknown) (unknown) Medical History (units (unknown) date) (Reviewed 07/12/22 unknown) @ 17:50 by Juliet Paz [facility]) (unknown) (no (unknown) (unknown) Medical decision (units (unknown) date) making narrative: unknown) (unknown) (no (unknown) (unknown) Medication (units (unk nown) date) Instructions unknown) Recorded Confirmed (unknown) (no (unknown) (unknown) Medication (units (unk nown) date) Instructions unknown) Recorded (unknown) (no (unknown) (unknown) Menometrorrhagia (units (unknown) date) unknown) (unknown) (no (unknown) (unknown) Mode of arrival: (units (unknown) date) Ambulatory unknown) (unknown) (no (unknown) (unknown) Yates # (Auto) (units ( unknown) date) (0-900) /uL unknown) (unknown) (no (unknown) (unknown) Yates # (Auto) 100 (units (unknown) date) (0-900) /uL unknown) (unknown) (no (unknown) (unknown) Yates % (Auto) (units ( unknown) date) (3-14) % unknown) (unknown) (no (unknown) (unknown) Yates % (Auto) 2.7 (units (unknown) date) L (3-14) % unknown) (unknown) (no (unknown) (unknown) Mother Diabetes (units (unknown) date) mellitus unknown) (unknown) (no (unknown) (unknown) Narrative (units (unkn own) date) unknown) (unknown) (no (unknown) (unknown) Nausea/vomiting ?> (units (unknown) date) 0 = No nausea and unknown) no vomiting (unknown) (no (unknown) (unknown) Neuro: normal (units ( unknown) date) speech and unknown) cognition, A+O x3, ambulatory, clear speech (unknown) (no (unknown) (unknown) Neut # (Auto) (units ( unknown) date) ([id number]) /uL unknown) (unknown) (no (unknown) (unknown) Neut # (Auto) 1500 (units (unknown) date) (2577-3448) /uL unknown) (unknown) (no (unknown) (unknown) Neut % (Auto) (units ( unknown) date) (50-75) % unknown) (unknown) (no (unknown) (unknown) Neut % (Auto) 45.5 (units (unknown) date) L (50-75) % unknown) (unknown) (no (unknown) (unknown) Obesity (units (unkno wn) date) unknown) (unknown) (no (unknown) (unknown) Ondansetron HCl (units (unknown) date) (Ondansetron 4 Mg unknown) Odt) 4 mg SL NOW ONE (unknown) (no (unknown) (unknown) Ondansetron HCl (units (unknown) date) (Ondansetron 4 Mg/2 unknown) Ml Inj) 4 mg IV Q6HR PRN (unknown) (no (unknown) (unknown) Ordered: (units (unkno wn) date) unknown) (unknown) (no (unknown) (unknown) Orders (units (unkno wn) date) unknown) (unknown) (no (unknown) (unknown) Orientation/cloudi (units (unknown) date) ng of sensorium ?> unknown) 0 = Oriented, can do serial additions (unknown) (no (unknown) (unknown) Over the course of (units (unknown) date) the night we have unknown) called various other facilities and they (unknown) (no (unknown) (unknown) Overweight (units (unk nown) date) unknown) (unknown) (no (unknown) (unknown) Oxygen Delivery (units (unknown) date) Method Room Air unknown) 07/12/22 16:10 (unknown) (no (unknown) (unknown) Oxygen Delivery (units (unknown) date) Method Room Air unknown) Room Air (unknown) (no (unknown) (unknown) Oxygen Delivery (units (unknown) date) Method unknown) (unknown) (no (unknown) (unknown) PRN Reason: Nausea (units (unknown) date) And Vomiting unknown) (unknown) (no (unknown) (unknown) Paroxysmal sweats (units (unknown) date) ?> 0 = No sweat unknown) visible (unknown) (no (unknown) (unknown) Patient (units (unkno wn) date) Disposition: unknown) Admitted As Inpatient (unknown) (no (unknown) (unknown) Patient History (units (unknown) date) unknown) (unknown) (no (unknown) (unknown) Patient has (units (un known) date) allergy to Reglan unknown) and hydrocodone. She denies urinary frequency, (unknown) (no (unknown) (unknown) Patient's CIWA at (units (unknown) date) 2019 is 12, I unknown) ordered for her 2 more mg of lorazepam p.o., (unknown) (no (unknown) (unknown) Patient: (units (unkno wn) date) Sarah Connors unknown) MR#: M (unknown) (no (unknown) (unknown) Patients with (units ( unknown) date) scores >= may unknown) require medication for withdrawal. (unknown) (no (unknown) (unknown) Pertinent lab (units ( unknown) date) findings reviewed: unknown) CBC is pertinent for mild leukopenia of 3.3, (unknown) (no (unknown) (unknown) Plt Count (units (unkn own) date) (150-400) X103/uL unknown) (unknown) (no (unknown) (unknown) Plt Count 226 (units ( unknown) date) (150-400) X103/uL unknown) (unknown) (no (unknown) (unknown) Point of Care (units ( unknown) date) Testing unknown) (unknown) (no (unknown) (unknown) Potassium (units (unkn own) date) (3.4-5.1) mmol/L unknown) (unknown) (no (unknown) (unknown) Potassium 3.9 (units ( unknown) date) (3.4-5.1) mmol/L unknown) (unknown) (no (unknown) (unknown) Test (units (unknown) date) Results Negative unknown) (unknown) (no (unknown) (unknown) Previous Rx's (units ( unknown) date) unknown) (unknown) (no (unknown) (unknown) Psych: mental (units ( unknown) date) status is intact, unknown) patient has a normal affect although she is (unknown) (no (unknown) (unknown) Pulse Oximetry 97 (units (unknown) date) 100 unknown) (unknown) (no (unknown) (unknown) Pulse Oximetry 97 (units (unknown) date) 98 98 unknown) (unknown) (no (unknown) (unknown) Pulse Oximetry 97 (units (unknown) date) unknown) (unknown) (no (unknown) (unknown) Pulse Oximetry 98 (units (unknown) date) 97 96 unknown) (unknown) (no (unknown) (unknown) Pulse Oximetry 98 (units (unknown) date) 98 unknown) (unknown) (no (unknown) (unknown) Pulse Oximetry 99 (units (unknown) date) 07/12/22 16:10 unknown) (unknown) (no (unknown) (unknown) Pulse Oximetry 99 (units (unknown) date) 97 97 unknown) (unknown) (no (unknown) (unknown) Pulse Rate 119 H (units (unknown) date) unknown) (unknown) (no (unknown) (unknown) Pulse Rate 120 H (units (unknown) date) 122 H unknown) (unknown) (no (unknown) (unknown) Pulse Rate 82 (units ( unknown) date) 07/12/22 16:10 unknown) (unknown) (no (unknown) (unknown) Pulse Rate 90 99 H (units (unknown) date) 109 H unknown) (unknown) (no (unknown) (unknown) Pulse Rate 94 H 92 (units (unknown) date) H 88 unknown) (unknown) (no (unknown) (unknown) Pulse Rate 97 H 87 (units (unknown) date) unknown) (unknown) (no (unknown) (unknown) Pulse Rate 98 H (units (unknown) date) 101 H 109 H unknown) (unknown) (no (unknown) (unknown) Qualifiers: (units (un known) date) unknown) (unknown) (no (unknown) (unknown) Questions are (units ( unknown) date) addressed and there unknown) is agreement with the plan and for follow-up. (unknown) (no (unknown) (unknown) RBC (4.0-5.2) (units ( unknown) date) X106/uL unknown) (unknown) (no (unknown) (unknown) RBC 4.44 (4.0-5.2) (units (unknown) date) X106/uL unknown) (unknown) (no (unknown) (unknown) RDW (11.6-14.8) % (units (unknown) date) unknown) (unknown) (no (unknown) (unknown) RDW 17.3 H (units (unk nown) date) (11.6-14.8) % unknown) (unknown) (no (unknown) (unknown) RESULT SUMMARY: (units (unknown) date) unknown) (unknown) (no (unknown) (unknown) ROS Unobtainable: (units (unknown) date) All systems unknown) reviewed + are unremarkable except as noted in HPI (unknown) (no (unknown) (unknown) Related Data (units (u nknown) date) unknown) (unknown) (no (unknown) (unknown) Respiratory Rate (units (unknown) date) 14 07/12/22 16:10 unknown) (unknown) (no (unknown) (unknown) Respiratory Rate (units (unknown) date) 16 18 unknown) (unknown) (no (unknown) (unknown) Respiratory Rate (units (unknown) date) unknown) (unknown) (no (unknown) (unknown) Respiratory: (units (u nknown) date) normal effort, able unknown) to speak in complete sentences, without (unknown) (no (unknown) (unknown) Review of Systems (units (unknown) date) unknown) (unknown) (no (unknown) (unknown) Reviewed vitals (units (unknown) date) signs and nursing unknown) notes. (unknown) (no (unknown) (unknown) S/P myringotomy (units (unknown) date) with insertion of unknown) tube (unknown) (no (unknown) (unknown) SARS-CoV-2 (PCR) (units (unknown) date) (Negative) unknown) (unknown) (no (unknown) (unknown) SARS-CoV-2 (PCR) (units (unknown) date) Negative (Negative) unknown) (unknown) (no (unknown) (unknown) (spontaneous (units (unknown) date) vaginal delivery) unknown) (-09/05/18) (unknown) (no (unknown) (unknown) Salicylates < 1.0 (units (unknown) date) (<20) mg/dL unknown) (unknown) (no (unknown) (unknown) Salicylates (<20) (units (unknown) date) mg/dL unknown) (unknown) (no (unknown) (unknown) She was given a (units (unknown) date) couple water, a unknown) diet order was ordered however they may not (unknown) (no (unknown) (unknown) Signed By: (units (unk nown) date) unknown) (unknown) (no (unknown) (unknown) Skin: brisk (units (un known) date) capillary refill, unknown) without pallor or erythema (unknown) (no (unknown) (unknown) Smoker (units (unkno wn) date) unknown) (unknown) (no (unknown) (unknown) [place] and (units (unknown) date) [facility] in the unknown) past. She has been sober for a total of 18 (unknown) (no (unknown) (unknown) Smoking Status: (units (unknown) date) Former smoker unknown) (unknown) (no (unknown) (unknown) Social History (units (unknown) date) (Reviewed 07/12/22 unknown) @ 17:50 by Juliet Paz [facility]) (unknown) (no (unknown) (unknown) Social (units (unkno wn) date) considerations that unknown) may affect disposition: none (unknown) (no (unknown) (unknown) Sodium (137-145) (units (unknown) date) mmol/L unknown) (unknown) (no (unknown) (unknown) Sodium 140 (units (unk nown) date) (137-145) mmol/L unknown) (unknown) (no (unknown) (unknown) Sodium Chloride (units (unknown) date) (Normal Saline unknown) 0.9%) 1,000 mls @ 1,000 mls/hr IV BOLUS ONE (unknown) (no (unknown) (unknown) Source: patient (units (unknown) date) unknown) (unknown) (no (unknown) (unknown) Stated Complaint: (units (unknown) date) Stress/Depression unknown) (unknown) (no (unknown) (unknown) Stop: 07/12/22 (units (unknown) date) 17:33 unknown) (unknown) (no (unknown) (unknown) Stop: 07/12/22 (units (unknown) date) 17:45 unknown) (unknown) (no (unknown) (unknown) Stop: 07/12/22 (units (unknown) date) 18:28 unknown) (unknown) (no (unknown) (unknown) Stop: 07/12/22 (units (unknown) date) 18:31 unknown) (unknown) (no (unknown) (unknown) Stop: 07/12/22 (units (unknown) date) 19:25 unknown) (unknown) (no (unknown) (unknown) Stop: 07/12/22 (units (unknown) date) 20:03 unknown) (unknown) (no (unknown) (unknown) Stop: 07/12/22 (units (unknown) date) 20:17 unknown) (unknown) (no (unknown) (unknown) Stop: 07/13/22 (units (unknown) date) 06:03 unknown) (unknown) (no (unknown) (unknown) Stop: 07/13/22 (units (unknown) date) 07:17 unknown) (unknown) (no (unknown) (unknown) Substance Use (units ( unknown) date) Type: does not use unknown) (unknown) (no (unknown) (unknown) Surgical History (units (unknown) date) (Reviewed 07/12/22 unknown) @ 17:50 by LYUDMILA Do) (unknown) (no (unknown) (unknown) TSH (0.47-4.68) (units (unknown) date) uIU/mL unknown) (unknown) (no (unknown) (unknown) TSH 1.24 (units (unkno wn) date) (0.47-4.68) uIU/mL unknown) (unknown) (no (unknown) (unknown) Tactile (units (unkno wn) date) disturbances ?> 1 = unknown) Very mild itching, pin and needles, burning, or (unknown) (no (unknown) (unknown) Temperature 97.2 F (units (unknown) date) L 07/12/22 16:10 unknown) (unknown) (no (unknown) (unknown) Thiamine HCl (units (u nknown) date) (Thiamine 100 Mg unknown) Tablet) 100 mg PO NOW ONE (unknown) (no (unknown) (unknown) Thiamine HCl 200 (units (unknown) date) mg/ Sodium unknown) (Chloride) 102 mls @ 408 mls/hr IV NOW ONE (unknown) (no (unknown) (unknown) This is a (units (unkn own) date) 31-year-old female unknown) with history of alcohol abuse and appears to have (unknown) (no (unknown) (unknown) Time Seen by (units (u nknown) date) Provider: 07/12/22 unknown) 17:05 (unknown) (no (unknown) (unknown) Total Bilirubin (units (unknown) date) (0.2-1.3) mg/dL unknown) (unknown) (no (unknown) (unknown) Total Bilirubin (units (unknown) date) 0.4 (0.2-1.3) mg/dL unknown) (unknown) (no (unknown) (unknown) Total Protein (units ( unknown) date) (6.3-8.2) g/dL unknown) (unknown) (no (unknown) (unknown) Total Protein 7.3 (units (unknown) date) (6.3-8.2) g/dL unknown) (unknown) (no (unknown) (unknown) Tremor ?> 1 = Not (units (unknown) date) visible, but can be unknown) felt fingertip to fingertip (unknown) (no (unknown) (unknown) U Benzodiazepines (units (unknown) date) Scrn (Negative) unknown) (unknown) (no (unknown) (unknown) U Benzodiazepines (units (unknown) date) Scrn Negative unknown) (Negative) (unknown) (no (unknown) (unknown) U Marijuana (THC) (units (unknown) date) Screen (Negative) unknown) (unknown) (no (unknown) (unknown) U Marijuana (THC) (units (unknown) date) Screen Negative unknown) (Negative) (unknown) (no (unknown) (unknown) U Methamphetamines (units (unknown) date) Scrn (Negative) unknown) (unknown) (no (unknown) (unknown) U Methamphetamines (units (unknown) date) Scrn Negative unknown) (Negative) (unknown) (no (unknown) (unknown) U Opiates 300ng/mL (units (unknown) date) cut (Negative) unknown) (unknown) (no (unknown) (unknown) U Opiates 300ng/mL (units (unknown) date) cut Negative unknown) (Negative) (unknown) (no (unknown) (unknown) U Tricyclic (units (un known) date) Antidepress unknown) (Negative) (unknown) (no (unknown) (unknown) U Tricyclic (units (un known) date) Antidepress unknown) Negative (Negative) (unknown) (no (unknown) (unknown) Ur Amphetamines (units (unknown) date) Screen (Negative) unknown) (unknown) (no (unknown) (unknown) Ur Amphetamines (units (unknown) date) Screen Negative unknown) (Negative) (unknown) (no (unknown) (unknown) Ur Barbiturates (units (unknown) date) Screen (Negative) unknown) (unknown) (no (unknown) (unknown) Ur Barbiturates (units (unknown) date) Screen Negative unknown) (Negative) (unknown) (no (unknown) (unknown) Ur Culture (units (unk nown) date) Indicated? Specimen unknown) cultured (unknown) (no (unknown) (unknown) Ur Culture (units (unk nown) date) Indicated? unknown) (unknown) (no (unknown) (unknown) Ur MDMA Scrn (units (u nknown) date) (Ecstasy) unknown) (Negative) (unknown) (no (unknown) (unknown) Ur MDMA Scrn (units (u nknown) date) (Ecstasy) Negative unknown) (Negative) (unknown) (no (unknown) (unknown) Ur Oxycodone (units (u nknown) date) Screen (Negative) unknown) (unknown) (no (unknown) (unknown) Ur Oxycodone (units (u nknown) date) Screen Negative unknown) (Negative) (unknown) (no (unknown) (unknown) Ur Phencyclidine (units (unknown) date) Scrn (Negative) unknown) (unknown) (no (unknown) (unknown) Ur Phencyclidine (units (unknown) date) Scrn Negative unknown) (Negative) (unknown) (no (unknown) (unknown) Ur Squamous Epith (units (unknown) date) Cells (0-5/HPF) unknown) (unknown) (no (unknown) (unknown) Ur Squamous Epith (units (unknown) date) Cells 1-5 /hpf unknown) (0-5/HPF) (unknown) (no (unknown) (unknown) Urine Bacteria (units (unknown) date) (None) unknown) (unknown) (no (unknown) (unknown) Urine Bacteria (units (unknown) date) Many (>30) H (None) unknown) (unknown) (no (unknown) (unknown) Urine Cocaine (units ( unknown) date) Screen (Negative) unknown) (unknown) (no (unknown) (unknown) Urine Cocaine (units ( unknown) date) Screen Negative unknown) (Negative) (unknown) (no (unknown) (unknown) Urine Dip (units (unkn own) date) unknown) (unknown) (no (unknown) (unknown) Urine Methadone (units (unknown) date) Screen (Negative) unknown) (unknown) (no (unknown) (unknown) Urine Methadone (units (unknown) date) Screen Negative unknown) (Negative) (unknown) (no (unknown) (unknown) Urine RBC (units (unkn own) date) (0-5/HPF) unknown) (unknown) (no (unknown) (unknown) Urine RBC 1-5/hpf (units (unknown) date) (0-5/HPF) unknown) (unknown) (no (unknown) (unknown) Urine Specific (units (unknown) date) [place] 1.015 unknown) (unknown) (no (unknown) (unknown) Urine WBC (units (unkn own) date) (0-5/HPF) unknown) (unknown) (no (unknown) (unknown) Urine WBC 1-5/hpf (units (unknown) date) (0-5/HPF) unknown) (unknown) (no (unknown) (unknown) Urine microscopy (units (unknown) date) with many bacteria, unknown) pending for culture, will treat for acute (unknown) (no (unknown) (unknown) Visual (units (unkno wn) date) disturbances ?> 1 = unknown) Very mild sensitivity (unknown) (no (unknown) (unknown) Vital Signs - 8 hr (units (unknown) date) unknown) (unknown) (no (unknown) (unknown) Vital Signs (units (un known) date) unknown) (unknown) (no (unknown) (unknown) Vital signs: (units (u nknown) date) unknown) (unknown) (no (unknown) (unknown) WBC (4.5-11.0) (units (unknown) date) X103/uL unknown) (unknown) (no (unknown) (unknown) WBC 3.3 L (units (unkn own) date) (4.5-11.0) X103/uL unknown) (unknown) (no (unknown) (unknown) [1900] ([place]) (units (unknown) date) Patient received in unknown) sign out [employer]. I have reviewed the (unknown) (no (unknown) (unknown) [Embedded Image (units (unknown) date) Not Available] unknown) (unknown) (no (unknown) (unknown) [METOCLOPRAMIDE] (units (unknown) date) unknown) (unknown) (no (unknown) (unknown) acceptable. She is (units (unknown) date) nauseated, without unknown) vomiting, received Zofran previously and (unknown) (no (unknown) (unknown) acetaminophen 325 (units (unknown) date) mg tablet 325 mg PO unknown) Q6H PRN pain #20 tabs 02/05/20 (unknown) (no (unknown) (unknown) alcohol in 300s, (units (unknown) date) she was last here unknown) in the emergency department in May of (unknown) (no (unknown) (unknown) alcohol intake (units (unknown) date) frequency: 3 or unknown) more drinks per day (unknown) (no (unknown) (unknown) alcohol intake: (units (unknown) date) former unknown) (unknown) (no (unknown) (unknown) alcohol level (units ( unknown) date) below 0.08 to be unknown) considered for placement there. (unknown) (no (unknown) (unknown) and below (units (unkn own) date) unknown) (unknown) (no (unknown) (unknown) and she drinking (units (unknown) date) daily since this unknown) happened. She wants rehab. She has been (unknown) (no (unknown) (unknown) anxious, (units (unkno wn) date) intoxicated and now unknown) withdrawing. pleasant and cooperative (unknown) (no (unknown) (unknown) appropriate (units (un known) date) candidate for unknown) outpatient treatment and will require hospitalization (unknown) (no (unknown) (unknown) are currently no (units (unknown) date) available beds. unknown) Patient resting comfortably (unknown) (no (unknown) (unknown) arrhythmia, or (units (unknown) date) acute ischemic unknown) changes. (unknown) (no (unknown) (unknown) at extension and (units (unknown) date) states that she unknown) feels symptoms of alcohol withdrawal. Denies (unknown) (no (unknown) (unknown) being depressed at (units (unknown) date) this time, CIWA is unknown) an 8. (unknown) (no (unknown) (unknown) bpm with rightward (units (unknown) date) axis and normal unknown) intervals. No STEMI, ST segment changes, (unknown) (no (unknown) (unknown) clinical course (units (unknown) date) and performed an unknown) independent history and physical exam. Patient (unknown) (no (unknown) (unknown) condition (units (unkn own) date) unknown) (unknown) (no (unknown) (unknown) current (units (unkno wn) date) occupational unknown) exposures/hazards: Yes (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 with Pandemic ) (unknown) (no (unknown) (unknown) cystitis without (units (unknown) date) hematuria unknown) (unknown) (no (unknown) (unknown) cystitis (units (unkno wn) date) unknown) (unknown) (no (unknown) (unknown) cystitis, she is (units (unknown) date) p.o. tolerant, unknown) still pending lab work (unknown) (no (unknown) (unknown) deliver since it (units (unknown) date) is after 17:00 and unknown) the diet order was ordered at 17:30. Samira (unknown) (no (unknown) (unknown) detox 11 times, (units (unknown) date) states that it has unknown) taking Antabuse, Librium, Ativan, she denies (unknown) (no (unknown) (unknown) detox as well. (units (unknown) date) unknown) (unknown) (no (unknown) (unknown) diarrhea or (units (un known) date) current stool unknown) changes. (unknown) (no (unknown) (unknown) diphenhydramine (units (unknown) date) HCl 25 mg capsule unknown) 25 mg PO BEDTIME PRN insomnia #20 02/05/20 (unknown) (no (unknown) (unknown) docusate sodium (units (unknown) date) 100 mg capsule 100 unknown) mg PO BID #[id number] caps 02/05/20 (unknown) (no (unknown) (unknown) draw her labs (units ( unknown) date) unknown) (unknown) (no (unknown) (unknown) education level: (units (unknown) date) college unknown) (unknown) (no (unknown) (unknown) electrolyte (units (un known) date) abnormalities. unknown) (unknown) (no (unknown) (unknown) emergency (units (unkn own) date) department on unknown) 06/18/2022 and a few days prior to that with a blood (unknown) (no (unknown) (unknown) extremities (units (un known) date) unknown) (unknown) (no (unknown) (unknown) renee/zoroastrianism: (units (unknown) date) Buddhist unknown) (unknown) (no (unknown) (unknown) fidgeting (units (unkn own) date) unknown) (unknown) (no (unknown) (unknown) fluid, EtOH, and (units (unknown) date) CIWA, ordered 2 mg unknown) of IV lorazepam for patient's symptoms, (unknown) (no (unknown) (unknown) for aggressive (units (unknown) date) treatment unknown) stabilization of her potentially life-threatening (unknown) (no (unknown) (unknown) for alcohol (units (un known) date) related complaints unknown) through 2019, and she presented to the [facility] (unknown) (no (unknown) (unknown) from social work (units (unknown) date) is aware and unknown) pending her lab work to arrange for inpatient (unknown) (no (unknown) (unknown) go to detox. She (units (unknown) date) is currently unknown) intoxicated endorses symptoms of alcohol (unknown) (no (unknown) (unknown) her urine (units (unkn own) date) microscopy came unknown) back positive for many bacteria, will treat for acute (unknown) (no (unknown) (unknown) household members: (units (unknown) date) spouse and children unknown) (unknown) (no (unknown) (unknown) hydrated. (units (unkn own) date) unknown) (unknown) (no (unknown) (unknown) hydrocodone (units (un known) date) [HYDROCODONE] unknown) AdvReac Unknown VOMITING Verified 07/12/22 16:18 (unknown) (no (unknown) (unknown) hyroid studies are (units (unknown) date) still pending. No unknown) significant findings to her CMP. No (unknown) (no (unknown) (unknown) ibuprofen 600 mg (units (unknown) date) tablet 600 mg PO unknown) Q6HR PRN Pain, Mild 07/04/20 (unknown) (no (unknown) (unknown) intoxicated, (units (u nknown) date) pleasant, unknown) interactive and comfortable although active, anxious and (unknown) (no (unknown) (unknown) is 338, COVID PCR (units (unknown) date) was negative, drug unknown) screen is negative for all tested agents, t (unknown) (no (unknown) (unknown) is 338, COVID PCR (units (unknown) date) was negative, drug unknown) screen is negative for all tested agents, (unknown) (no (unknown) (unknown) is allergic to (units ( unknown) date) Reglan, will dose unknown) with another 5 mg of Zofran, no QT prolongation (unknown) (no (unknown) (unknown) knowing if she is (units (unknown) date) had phenobarbital unknown) in the past. (unknown) (no (unknown) (unknown) limited history (units (unknown) date) currently due to unknown) intoxication. She states that she is recently (unknown) (no (unknown) (unknown) lorazepam at 2 mg (units (unknown) date) for this. unknown) (unknown) (no (unknown) (unknown) marital status: (units (unknown) date) unknown) (unknown) (no (unknown) (unknown) metoclopramide (units (unknown) date) Allergy Mild unknown) RASH/HIVES Verified 07/12/22 16:18 (unknown) (no (unknown) (unknown) mild anemia but (units (unknown) date) improved from her unknown) prior with H+H of 11.5 and 35.3, no evidence (unknown) (no (unknown) (unknown) months. She denies (units (unknown) date) any recent unknown) injuries, denies chance of , denies any (unknown) (no (unknown) (unknown) nausea vomiting or (units (unknown) date) abdominal pain at unknown) this time. Denies any vomiting home or (unknown) (no (unknown) (unknown) number of (units (unkn own) date) children: 1 unknown) (unknown) (no (unknown) (unknown) numbness (units (unkno wn) date) unknown) (unknown) (no (unknown) (unknown) occupational (units (u nknown) date) status: employed unknown) (unknown) (no (unknown) (unknown) of bleeding (units (un known) date) anywhere, CMP unknown) (unknown) (no (unknown) (unknown) on her EKG, (units (un known) date) patient is alert unknown) and oriented x3, complaining of feeling poorly and (unknown) (no (unknown) (unknown) ondansetron 4 mg [...] nausea and 02/05/20 (unknown) (no (unknown) (unknown) ordered p.o. (units (u nknown) date) Ativan for her unknown) symptoms and ask our into call lab to come up and (unknown) (no (unknown) (unknown) other ingestions, (units (unknown) date) is pleasant, unknown) seeking help with her intoxication and wishes to (unknown) (no (unknown) (unknown) patient's (units (unknown) date) is at the bedside unknown) offering support, she raises nausea, another (unknown) (no (unknown) (unknown) prenat.vits,otis,mi (units (unknown) date) h-euie-xrwym 1 tab unknown) PO DAILY 12/30/19 07/03/20 (unknown) (no (unknown) (unknown) relapsed due to a (units (unknown) date) divorce with her unknown) . She used to be a frequent visitor (unknown) (no (unknown) (unknown) resting (units (unkno wn) date) comfortably, unknown) currently pursuing placement at [facility] [place] (unknown) (no (unknown) (unknown) scores of 10 or (units (unknown) date) less by 4 unknown) hours a piece and must also have blood (unknown) (no (unknown) (unknown) second hand (units (un known) date) exposure: No unknown) (growing up as a child - not currently) (unknown) (no (unknown) (unknown) significant tremor (units (unknown) date) or tongue unknown) fasciculation, she has a mild tremor with her arms (unknown) (no (unknown) (unknown) social work and (units (unknown) date) orders are pending unknown) (unknown) (no (unknown) (unknown) special renee (units ( unknown) date) needs: No unknown) (unknown) (no (unknown) (unknown) substance abuse, (units (unknown) date) alcohol unknown) intoxication, psychosis, mood disorder, depression (unknown) (no (unknown) (unknown) substance use (units ( unknown) date) type: does not use unknown) (unknown) (no (unknown) (unknown) tablet vomiting (units (unknown) date) #14 tabs unknown) (unknown) (no (unknown) (unknown) tablet vomiting (units (unknown) date) #20 tabs unknown) (unknown) (no (unknown) (unknown) tablet vomiting (units (unknown) date) #30 tabs unknown) (unknown) (no (unknown) (unknown) tenderness or (units ( unknown) date) exquisite unknown) tenderness with exam. (unknown) (no (unknown) (unknown) that she drinks (units (unknown) date) vodka and admits to unknown) drinking heavily today, states that she took (unknown) (no (unknown) (unknown) the bottle upside (units (unknown) date) down and started unknown) checking from it. She states that she drank (unknown) (no (unknown) (unknown) thyroid studies (units (unknown) date) are still pending. unknown) No significant findings to her CMP. No (unknown) (no (unknown) (unknown) tramadol 50 mg (units (unknown) date) tablet 50 mg PO Q6H unknown) PRN pain #10 tabs 06/12/22 (unknown) (no (unknown) (unknown) tremors, no (units (un known) date) tachycardia, her unknown) CIWA is currently 10, ordered another p.o. dose of (unknown) (no (unknown) (unknown) urgency or flank (units (unknown) date) pain, endorses unknown) nausea without vomiting. Patient has been to (unknown) (no (unknown) (unknown) well as prior (units ( unknown) date) records if unknown) available. (unknown) (no (unknown) (unknown) wheezing, stridor, (units (unknown) date) or abnormal breath unknown) sounds. No retractions or tachypnea. (unknown) (no (unknown) (unknown) withdrawal and a (units (unknown) date) newly calculated unknown) CIWA approaching 20. Patient is no longer an (unknown) (no (unknown) (unknown) withdrawal. (units (un known) date) Patient states that unknown) she takes Seroquel 300 mg at night as well as Result panel [id number] (unknown) (no (unknown) (unknown) (no value) (units (unk nown) date) unknown) (unknown) (no (unknown) (unknown) (1-3) #30 tabs (units (unknown) date) unknown) (unknown) (no (unknown) (unknown) (Benadryl) caps (units (unknown) date) unknown) (unknown) (no (unknown) (unknown) (Colace) (units (unkno wn) date) unknown) (unknown) (no (unknown) (unknown) (Tylenol) (units (unkn own) date) unknown) (unknown) (no (unknown) (unknown) (past 8 hours): (units (unknown) date) unknown) (unknown) (no (unknown) (unknown) - She received (units (unknown) date) multiple doses of unknown) oral ativan, IV was placed in the ED. (unknown) (no (unknown) (unknown) [id number] (units (unkn own) date) unknown) (unknown) (no (unknown) (unknown) 01:28 07/13/22 (units (unknown) date) unknown) (unknown) (no (unknown) (unknown) 01:50 (units (unkno wn) date) unknown) (unknown) (no (unknown) (unknown) 07/03/20 Rx (units (un known) date) unknown) (unknown) (no (unknown) (unknown) 02:00 07/13/22 (units (unknown) date) unknown) (unknown) (no (unknown) (unknown) 02:14 07/13/22 (units (unknown) date) unknown) (unknown) (no (unknown) (unknown) 02:14 (units (unkno wn) date) unknown) (unknown) (no (unknown) (unknown) 02:30 07/13/22 (units (unknown) date) unknown) (unknown) (no (unknown) (unknown) 07/12/22 07/12/22 (units (unknown) date) 07/12/22 unknown) (unknown) (no (unknown) (unknown) 07/12/22 19:15 (units (unknown) date) unknown) (unknown) (no (unknown) (unknown) 07/12/22 (units (unkno wn) date) unknown) (unknown) (no (unknown) (unknown) 07/13/22 (units (unkno wn) date) unknown) (unknown) (no (unknown) (unknown) 03:00 07/13/22 (units (unknown) date) unknown) (unknown) (no (unknown) (unknown) 03:30 (units (unkno wn) date) unknown) (unknown) (no (unknown) (unknown) 04:00 07/13/22 (units (unknown) date) unknown) (unknown) (no (unknown) (unknown) 04:30 07/13/22 (units (unknown) date) unknown) (unknown) (no (unknown) (unknown) 05:00 (units (unkno wn) date) unknown) (unknown) (no (unknown) (unknown) 05:30 07/13/22 (units (unknown) date) unknown) (unknown) (no (unknown) (unknown) 05:54 07/13/22 (units (unknown) date) unknown) (unknown) (no (unknown) (unknown) 05:54 (units (unkno wn) date) unknown) (unknown) (no (unknown) (unknown) 06:00 07/13/22 (units (unknown) date) unknown) (unknown) (no (unknown) (unknown) 06:00 (units (unkno wn) date) unknown) (unknown) (no (unknown) (unknown) 16:32 16:32 16:32 (units (unknown) date) unknown) (unknown) (no (unknown) (unknown) 19:15 19:15 19:15 (units (unknown) date) unknown) (unknown) (no (unknown) (unknown) 23:30 07/13/22 (units (unknown) date) unknown) (unknown) (no (unknown) (unknown) 750 mL of time.? (units (unknown) date) She just she has unknown) nothing to do but relapsed.? This 3 weeks ago (unknown) (no (unknown) (unknown) 8.0 AST 67 (units (unkn own) date) urinalysis unknown) indicated many bacteria alcohol level was 338 and COVID-19 (unknown) (no (unknown) (unknown) ALT 21 (units (unkno wn) date) unknown) (unknown) (no (unknown) (unknown) ALT (units (unkno wn) date) unknown) (unknown) (no (unknown) (unknown) AST 67 H (units (unkno wn) date) unknown) (unknown) (no (unknown) (unknown) AST (units (unkno wn) date) unknown) (unknown) (no (unknown) (unknown) Abd: soft, (units (unk nown) date) non-tender, unknown) normoactive BTs (unknown) (no (unknown) (unknown) Acetaminophen < 10 (units (unknown) date) unknown) (unknown) (no (unknown) (unknown) Acetaminophen (units ( unknown) date) unknown) (unknown) (no (unknown) (unknown) Acute alcohol (units ( unknown) date) intoxication and unknown) withdrawal, present on admission (unknown) (no (unknown) (unknown) Age/Sex: 31 / F (units (unknown) date) unknown) (unknown) (no (unknown) (unknown) Albumin 4.3 (units (un known) date) unknown) (unknown) (no (unknown) (unknown) Albumin (units (unkno wn) date) unknown) (unknown) (no (unknown) (unknown) Albumin/Globulin (units (unknown) date) Ratio 1.4 unknown) (unknown) (no (unknown) (unknown) Albumin/Globulin (units (unknown) date) Ratio unknown) (unknown) (no (unknown) (unknown) Alcoholism (units (unk nown) date) unknown) (unknown) (no (unknown) (unknown) Alkaline (units (unkno wn) date) Phosphatase 98 unknown) (unknown) (no (unknown) (unknown) Alkaline (units (unkno wn) date) Phosphatase unknown) (unknown) (no (unknown) (unknown) Allergies (units (unkn own) date) unknown) (unknown) (no (unknown) (unknown) Allergy/AdvReac (units (unknown) date) Type Severity unknown) Reaction Status Date / Time (unknown) (no (unknown) (unknown) Anemia (-2018) (units (unknown) date) unknown) (unknown) (no (unknown) (unknown) Assessment + Plan (units (unknown) date) narrative: unknown) (unknown) (no (unknown) (unknown) Assessment + Plan (units (unknown) date) unknown) (unknown) (no (unknown) (unknown) BUN 9 (units (unkno wn) date) unknown) (unknown) (no (unknown) (unknown) BUN (units (unkno wn) date) unknown) (unknown) (no (unknown) (unknown) BUN/Creatinine (units (unknown) date) Ratio 11.0 unknown) (unknown) (no (unknown) (unknown) BUN/Creatinine (units (unknown) date) Ratio unknown) (unknown) (no (unknown) (unknown) Baso # (Auto) 0 (units (unknown) date) unknown) (unknown) (no (unknown) (unknown) Baso # (Auto) (units ( unknown) date) unknown) (unknown) (no (unknown) (unknown) Baso % (Auto) 0.9 (units (unknown) date) unknown) (unknown) (no (unknown) (unknown) Baso % (Auto) (units ( unknown) date) unknown) (unknown) (no (unknown) (unknown) Been Physically (units (unknown) date) Hurt or No unknown) (unknown) (no (unknown) (unknown) Blood Pressure (units (unknown) date) 102/59 L unknown) (unknown) (no (unknown) (unknown) Blood Pressure (units (unknown) date) 93/54 L unknown) (unknown) (no (unknown) (unknown) Blood Pressure (units (unknown) date) 99/52 L unknown) (unknown) (no (unknown) (unknown) Blood Pressure (units (unknown) date) 99/58 L unknown) (unknown) (no (unknown) (unknown) Blood Pressure (units (unknown) date) [Left Arm] 95/53 L unknown) (unknown) (no (unknown) (unknown) Blood Pressure (units (unknown) date) [Left Arm] unknown) (unknown) (no (unknown) (unknown) Blood Pressure (units (unknown) date) unknown) (unknown) (no (unknown) (unknown) COVID-19 status: (units (unknown) date) Negative unknown) (unknown) (no (unknown) (unknown) COVID-19 (units (unkno wn) date) unknown) (unknown) (no (unknown) (unknown) CV: RRR, no murmur (units (unknown) date) or rubs unknown) (unknown) (no (unknown) (unknown) Calcium 8.0 L (units ( unknown) date) unknown) (unknown) (no (unknown) (unknown) Calcium (units (unkno wn) date) unknown) (unknown) (no (unknown) (unknown) Carbon Dioxide 23 (units (unknown) date) unknown) (unknown) (no (unknown) (unknown) Carbon Dioxide (units (unknown) date) unknown) (unknown) (no (unknown) (unknown) Chief complaint: (units (unknown) date) Stress/Depression unknown) (unknown) (no (unknown) (unknown) Chloride 104 (units (u nknown) date) unknown) (unknown) (no (unknown) (unknown) Chloride (units (unkno wn) date) unknown) (unknown) (no (unknown) (unknown) Creatinine 0.82 (units (unknown) date) unknown) (unknown) (no (unknown) (unknown) Creatinine (units (unk nown) date) unknown) (unknown) (no (unknown) (unknown) Critical Care (units ( unknown) date) time: unknown) (unknown) (no (unknown) (unknown) : 1990 (units (unknown) date) Acct:[id number] unknown) (unknown) (no (unknown) (unknown) Date Patient Seen: (units (unknown) date) 07/13/22 unknown) (unknown) (no (unknown) (unknown) Date of Service: (units (unknown) date) 07/13/22 unknown) (unknown) (no (unknown) (unknown) Environment (units (un known) date) unknown) (unknown) (no (unknown) (unknown) Eos # (Auto) 0 (units (unknown) date) unknown) (unknown) (no (unknown) (unknown) Eos # (Auto) (units (u nknown) date) unknown) (unknown) (no (unknown) (unknown) Eos % (Auto) 0.3 L (units (unknown) date) unknown) (unknown) (no (unknown) (unknown) Eos % (Auto) (units (u nknown) date) unknown) (unknown) (no (unknown) (unknown) Estimated GFR > 60 (units (unknown) date) unknown) (unknown) (no (unknown) (unknown) Estimated GFR (units ( unknown) date) unknown) (unknown) (no (unknown) (unknown) Ethyl Alcohol 338 (units (unknown) date) H unknown) (unknown) (no (unknown) (unknown) Ethyl Alcohol (units ( unknown) date) unknown) (unknown) (no (unknown) (unknown) Exam Narrative: (units (unknown) date) unknown) (unknown) (no (unknown) (unknown) Exam (units (unkno wn) date) unknown) (unknown) (no (unknown) (unknown) Extremities: moves (units (unknown) date) all 4 extremities, unknown) is ambulatory, negative Lenny?s sign (unknown) (no (unknown) (unknown) Family + Social (units (unknown) date) History unknown) (unknown) (no (unknown) (unknown) Family History (units (unknown) date) (Reviewed 07/13/22 unknown) @ 06:49 by LYUDMILA Borden) (unknown) (no (unknown) (unknown) Family/Other (units (u nknown) date) Alcoholism unknown) (unknown) (no (unknown) (unknown) Family/Other (units (u nknown) date) Diabetes mellitus unknown) (unknown) (no (unknown) (unknown) Father Alcoholism (units (unknown) date) unknown) (unknown) (no (unknown) (unknown) Feels Safe in (units ( unknown) date) Current Yes unknown) (unknown) (no (unknown) (unknown) Free T4 0.93 (units (u nknown) date) unknown) (unknown) (no (unknown) (unknown) Free T4 (units (unkno wn) date) unknown) (unknown) (no (unknown) (unknown) Gen: Alert, (units (un known) date) oriented, unknown) well-developed 31 y.o. female, NAD (unknown) (no (unknown) (unknown) Globulin 3.0 (units (u nknown) date) unknown) (unknown) (no (unknown) (unknown) Globulin (units (unkno wn) date) unknown) (unknown) (no (unknown) (unknown) Glucose 111 H (units ( unknown) date) unknown) (unknown) (no (unknown) (unknown) Glucose (units (unkno wn) date) unknown) (unknown) (no [...] extraction () unknown) (unknown) (no (unknown) (unknown) HEENT: (units (unkno wn) date) normocephalic, unknown) atraumatic, conjunctiva clear, pinpoint pupils, sclera (unknown) (no (unknown) (unknown) Hct 35.3 L (units (unk nown) date) unknown) (unknown) (no (unknown) (unknown) Hct (units (unkno wn) date) unknown) (unknown) (no (unknown) (unknown) Hgb 11.5 L (units (unk nown) date) unknown) (unknown) (no (unknown) (unknown) Hgb (units (unkno wn) date) unknown) (unknown) (no (unknown) (unknown) History + Physical (units (unknown) date) Report unknown) (unknown) (no (unknown) (unknown) History of Present (units (unknown) date) Illness unknown) (unknown) (no (unknown) (unknown) Home Medications (units (unknown) date) and Allergies unknown) (unknown) (no (unknown) (unknown) Home Medications (units (unknown) date) unknown) (unknown) (no (unknown) (unknown) I spent a total of (units (unknown) date) [] minutes of unknown) critical care time on this patient's care (unknown) (no (unknown) (unknown) Insomnia (units (unkno wn) date) unknown) (unknown) (no (unknown) (unknown) [facility] (units (unknown) date) [address] unknown) [place] [address] (unknown) (no (unknown) (unknown) Laboratory Results (units (unknown) date) - last 24 hr unknown) (unknown) (no (unknown) (unknown) Labs (units (unkno wn) date) unknown) (unknown) (no (unknown) (unknown) Labs: (units (unkno wn) date) unknown) (unknown) (no (unknown) (unknown) Lymph # (Auto) (units (unknown) date) 1700 unknown) (unknown) (no (unknown) (unknown) Lymph # (Auto) (units (unknown) date) unknown) (unknown) (no (unknown) (unknown) Lymph % (Auto) (units (unknown) date) 50.6 H unknown) (unknown) (no (unknown) (unknown) Lymph % (Auto) (units (unknown) date) unknown) (unknown) (no (unknown) (unknown) MCH 26.0 (units (unkno wn) date) unknown) (unknown) (no (unknown) (unknown) MCH (units (unkno wn) date) unknown) (unknown) (no (unknown) (unknown) MCHC 32.7 (units (unkn own) date) unknown) (unknown) (no (unknown) (unknown) MCHC (units (unkno wn) date) unknown) (unknown) (no (unknown) (unknown) MCV 79.5 L (units (unk nown) date) unknown) (unknown) (no (unknown) (unknown) MCV (units (unkno wn) date) unknown) (unknown) (no (unknown) (unknown) Medical History (units (unknown) date) (Reviewed 07/13/22 unknown) @ 06:49 by LYUMDILA Borden) (unknown) (no (unknown) (unknown) Medication (units (unk nown) date) Instructions unknown) Recorded Confirmed Type (unknown) (no (unknown) (unknown) Meds (units (unkno wn) date) unknown) (unknown) (no (unknown) (unknown) Menometrorrhagia (units (unknown) date) unknown) (unknown) (no (unknown) (unknown) Yates # (Auto) 100 (units (unknown) date) unknown) (unknown) (no (unknown) (unknown) Yates # (Auto) (units ( unknown) date) unknown) (unknown) (no (unknown) (unknown) Yates % (Auto) 2.7 (units (unknown) date) L unknown) (unknown) (no (unknown) (unknown) Yates % (Auto) (units ( unknown) date) unknown) (unknown) (no (unknown) (unknown) Mother Diabetes (units (unknown) date) mellitus unknown) (unknown) (no (unknown) (unknown) Narrative (units (unkn own) date) unknown) (unknown) (no (unknown) (unknown) Narrative: (units (unk nown) date) unknown) (unknown) (no (unknown) (unknown) Neck: supple, full (units (unknown) date) ROM, no JVD, unknown) trachea is midline (unknown) (no (unknown) (unknown) Neuro: very (units (un known) date) lethargic and unknown) unable to hold a meaningful conversation, speech is (unknown) (no (unknown) (unknown) Neut # (Auto) 1500 (units (unknown) date) unknown) (unknown) (no (unknown) (unknown) Neut # (Auto) (units ( unknown) date) unknown) (unknown) (no (unknown) (unknown) Neut % (Auto) 45.5 (units (unknown) date) L unknown) (unknown) (no (unknown) (unknown) Neut % (Auto) (units ( unknown) date) unknown) (unknown) (no (unknown) (unknown) Obesity (units (unkno wn) date) unknown) (unknown) (no (unknown) (unknown) Objective (units (unkn own) date) unknown) (unknown) (no (unknown) (unknown) Overweight (units (unk nown) date) unknown) (unknown) (no (unknown) (unknown) Oxygen Delivery (units (unknown) date) Method Room Air unknown) Room Air (unknown) (no (unknown) (unknown) Oxygen Delivery (units (unknown) date) Method Room Air unknown) (unknown) (no (unknown) (unknown) Oxygen Delivery (units (unknown) date) Method unknown) (unknown) (no (unknown) (unknown) PCR done on July (units (unknown) date) was negative. unknown) (unknown) (no (unknown) (unknown) Patient History (units (unknown) date) unknown) (unknown) (no (unknown) (unknown) Patient is heavily (units (unknown) date) sedated, falling unknown) asleep during my visit and unable to provide (unknown) (no (unknown) (unknown) Patient: (units (unkno wn) date) Sarah Connors R unknown) MR#: M (unknown) (no (unknown) (unknown) Plt Count 226 (units ( unknown) date) unknown) (unknown) (no (unknown) (unknown) Plt Count (units (unkn own) date) unknown) (unknown) (no (unknown) (unknown) Potassium 3.9 (units ( unknown) date) unknown) (unknown) (no (unknown) (unknown) Potassium (units (unkn own) date) unknown) (unknown) (no (unknown) (unknown) Provider: (units (unkn own) date) Aide Haney unknown) (unknown) (no (unknown) (unknown) Psyche: appears to (units (unknown) date) be hallucinating unknown) (unknown) (no (unknown) (unknown) Pulse Oximetry 97 (units (unknown) date) 100 unknown) (unknown) (no (unknown) (unknown) Pulse Oximetry 97 (units (unknown) date) 98 98 unknown) (unknown) (no (unknown) (unknown) Pulse Oximetry 97 (units (unknown) date) unknown) (unknown) (no (unknown) (unknown) Pulse Oximetry 98 (units (unknown) date) 97 96 unknown) (unknown) (no (unknown) (unknown) Pulse Oximetry 98 (units (unknown) date) 98 unknown) (unknown) (no (unknown) (unknown) Pulse Oximetry 99 (units (unknown) date) 97 97 unknown) (unknown) (no (unknown) (unknown) Pulse Rate 119 H (units (unknown) date) unknown) (unknown) (no (unknown) (unknown) Pulse Rate 120 H (units (unknown) date) 122 H unknown) (unknown) (no (unknown) (unknown) Pulse Rate 90 99 H (units (unknown) date) 109 H unknown) (unknown) (no (unknown) (unknown) Pulse Rate 94 H 92 (units (unknown) date) H 88 unknown) (unknown) (no (unknown) (unknown) Pulse Rate 97 H 87 (units (unknown) date) unknown) (unknown) (no (unknown) (unknown) Pulse Rate 98 H (units (unknown) date) 101 H 109 H unknown) (unknown) (no (unknown) (unknown) RBC 4.44 (units (unkno wn) date) unknown) (unknown) (no (unknown) (unknown) RBC (units (unkno wn) date) unknown) (unknown) (no (unknown) (unknown) RDW 17.3 H (units (unk nown) date) unknown) (unknown) (no (unknown) (unknown) RDW (units (unkno wn) date) unknown) (unknown) (no (unknown) (unknown) ROS: Yes (units (unkno wn) date) unobtainable due to unknown) mental status (unknown) (no (unknown) (unknown) Resp: Lungs CTA, (units (unknown) date) non-labored unknown) breathing (unknown) (no (unknown) (unknown) Respiratory Rate (units (unknown) date) 16 18 unknown) (unknown) (no (unknown) (unknown) Respiratory Rate (units (unknown) date) unknown) (unknown) (no (unknown) (unknown) Result date/Date (units (unknown) date) tested (Pos, unknown) Neg/Pending): 07/12/22 (unknown) (no (unknown) (unknown) Review of Systems (units (unknown) date) unknown) (unknown) (no (unknown) (unknown) S/P myringotomy (units (unknown) date) with insertion of unknown) tube (unknown) (no (unknown) (unknown) SARS-CoV-2 (PCR) (units (unknown) date) Negative unknown) (unknown) (no (unknown) (unknown) SARS-CoV-2 (PCR) (units (unknown) date) unknown) (unknown) (no (unknown) (unknown) (spontaneous (units (unknown) date) vaginal delivery) unknown) (-09/05/18) (unknown) (no (unknown) (unknown) Safety + (units (unkno wn) date) Behavioral: unknown) (unknown) (no (unknown) (unknown) Salicylates < 1.0 (units (unknown) date) unknown) (unknown) (no (unknown) (unknown) Salicylates (units (un known) date) unknown) (unknown) (no (unknown) (unknown) She is afebrile, (units (unknown) date) blood pressure unknown) 93/54 heart rate 119 respiratory rate 18 oxygen (unknown) (no (unknown) (unknown) Signed By: (units (unk nown) date) unknown) (unknown) (no (unknown) (unknown) Skin: no lesions (units (unknown) date) or rashes, dry and unknown) intact (unknown) (no (unknown) (unknown) Smoker (units (unkno wn) date) unknown) (unknown) (no (unknown) (unknown) [place] and (units (unknown) date) [place] in the unknown) past.? She has been sober for a total of 18 (unknown) (no (unknown) (unknown) Smoking Status (units (unknown) date) Former smoker unknown) (unknown) (no (unknown) (unknown) Social History: (units (unknown) date) unknown) (unknown) (no (unknown) (unknown) Sodium 140 (units (unk nown) date) unknown) (unknown) (no (unknown) (unknown) Sodium (units (unkno wn) date) unknown) (unknown) (no (unknown) (unknown) Sarah Freemanis a (units (unknown) date) 31-year-old female unknown) with history of alcohol abuse and appears to (unknown) (no (unknown) (unknown) Sarah Connors is (units (unknown) date) admitted to the unknown) inpatient ICU for further management of (unknown) (no (unknown) (unknown) Substance Use Type (units (unknown) date) does not use unknown) (unknown) (no (unknown) (unknown) Suicidal Ideation (units (unknown) date) Description None unknown) (unknown) (no (unknown) (unknown) Surgical History (units (unknown) date) (Reviewed 07/13/22 unknown) @ 06:49 by LYUDMILA Borden) (unknown) (no (unknown) (unknown) TSH 1.24 (units (unkno wn) date) unknown) (unknown) (no (unknown) (unknown) TSH (units (unkno wn) date) unknown) (unknown) (no (unknown) (unknown) Threatened By a (units (unknown) date) Person unknown) (unknown) (no (unknown) (unknown) Time Patient Seen: (units (unknown) date) 06:48 unknown) (unknown) (no (unknown) (unknown) Time Spent With (units (unknown) date) Patient unknown) (unknown) (no (unknown) (unknown) Tobacco + (units (unkn own) date) Substance use: unknown) (unknown) (no (unknown) (unknown) Tobacco type (units (u nknown) date) cigarettes unknown) (unknown) (no (unknown) (unknown) Total Bilirubin (units (unknown) date) 0.4 unknown) (unknown) (no (unknown) (unknown) Total Bilirubin (units (unknown) date) unknown) (unknown) (no (unknown) (unknown) Total Protein 7.3 (units (unknown) date) unknown) (unknown) (no (unknown) (unknown) Total Protein (units ( unknown) date) unknown) (unknown) (no (unknown) (unknown) U Benzodiazepines (units (unknown) date) Scrn Negative unknown) (unknown) (no (unknown) (unknown) U Benzodiazepines (units (unknown) date) Scrn unknown) (unknown) (no (unknown) (unknown) U Marijuana (THC) (units (unknown) date) Screen Negative unknown) (unknown) (no (unknown) (unknown) U Marijuana (THC) (units (unknown) date) Screen unknown) (unknown) (no (unknown) (unknown) U Methamphetamines (units (unknown) date) Scrn Negative unknown) (unknown) (no (unknown) (unknown) U Methamphetamines (units (unknown) date) Scrn unknown) (unknown) (no (unknown) (unknown) U Opiates 300ng/mL (units (unknown) date) cut Negative unknown) (unknown) (no (unknown) (unknown) U Opiates 300ng/mL (units (unknown) date) cut unknown) (unknown) (no (unknown) (unknown) U Tricyclic (units (un known) date) Antidepress unknown) Negative (unknown) (no (unknown) (unknown) U Tricyclic (units (un known) date) Antidepress unknown) (unknown) (no (unknown) (unknown) Ur Amphetamines (units (unknown) date) Screen Negative unknown) (unknown) (no (unknown) (unknown) Ur Amphetamines (units (unknown) date) Screen unknown) (unknown) (no (unknown) (unknown) Ur Barbiturates (units (unknown) date) Screen Negative unknown) (unknown) (no (unknown) (unknown) Ur Barbiturates (units (unknown) date) Screen unknown) (unknown) (no (unknown) (unknown) Ur Culture (units (unk nown) date) Indicated? Specimen unknown) cultured (unknown) (no (unknown) (unknown) Ur Culture (units (unk nown) date) Indicated? unknown) (unknown) (no (unknown) (unknown) Ur MDMA Scrn (units (u nknown) date) (Ecstasy) Negative unknown) (unknown) (no (unknown) (unknown) Ur MDMA Scrn (units (u nknown) date) (Ecstasy) unknown) (unknown) (no (unknown) (unknown) Ur Oxycodone (units (u nknown) date) Screen Negative unknown) (unknown) (no (unknown) (unknown) Ur Oxycodone (units (u nknown) date) Screen unknown) (unknown) (no (unknown) (unknown) Ur Phencyclidine (units (unknown) date) Scrn Negative unknown) (unknown) (no (unknown) (unknown) Ur Phencyclidine (units (unknown) date) Scrn unknown) (unknown) (no (unknown) (unknown) Ur Squamous Epith (units (unknown) date) Cells 1-5 /hpf unknown) (unknown) (no (unknown) (unknown) Ur Squamous Epith (units (unknown) date) Cells unknown) (unknown) (no (unknown) (unknown) Urine Bacteria (units (unknown) date) Many (>30) H unknown) (unknown) (no (unknown) (unknown) Urine Bacteria (units (unknown) date) unknown) (unknown) (no (unknown) (unknown) Urine Cocaine (units ( unknown) date) Screen Negative unknown) (unknown) (no (unknown) (unknown) Urine Cocaine (units ( unknown) date) Screen unknown) (unknown) (no (unknown) (unknown) Urine Methadone (units (unknown) date) Screen Negative unknown) (unknown) (no (unknown) (unknown) Urine Methadone (units (unknown) date) Screen unknown) (unknown) (no (unknown) (unknown) Urine RBC 1-5/hpf (units (unknown) date) unknown) (unknown) (no (unknown) (unknown) Urine RBC (units (unkn own) date) unknown) (unknown) (no (unknown) (unknown) Urine WBC 1-5/hpf (units (unknown) date) unknown) (unknown) (no (unknown) (unknown) Urine WBC (units (unkn own) date) unknown) (unknown) (no (unknown) (unknown) Vital Signs (units (un known) date) unknown) (unknown) (no (unknown) (unknown) WBC 3.3 L (units (unkn own) date) unknown) (unknown) (no (unknown) (unknown) WBC (units (unkno wn) date) unknown) (unknown) (no (unknown) (unknown) [facility] (units (unknown) date) department on unknown) 06/18/2022 and a few days prior to that with a (unknown) (no (unknown) (unknown) [Embedded Image (units (unknown) date) Not Available] unknown) (unknown) (no (unknown) (unknown) [METOCLOPRAMIDE] (units (unknown) date) unknown) (unknown) (no (unknown) (unknown) a history, except (units (unknown) date) for 'I went on a unknown) castañeda' for 12 days. Per the ED notes, (unknown) (no (unknown) (unknown) acetaminophen 325 (units (unknown) date) mg tablet 325 mg PO unknown) Q6H PRN pain #20 tabs 02/05/20 07/03/20 Rx (unknown) (no (unknown) (unknown) alcohol intake (units (unknown) date) former unknown) (unknown) (no (unknown) (unknown) alcohol intake (units (unknown) date) frequency 3 or more unknown) drinks per day (unknown) (no (unknown) (unknown) alcohol (units (unkno wn) date) withdrawal. unknown) (unknown) (no (unknown) (unknown) and she drinking (units (unknown) date) daily since this unknown) happened.? She wants rehab.? She has been (unknown) (no (unknown) (unknown) blood alcohol in (units (unknown) date) 300s, she was last unknown) here in the emergency department in May (unknown) (no (unknown) (unknown) but developed (units ( unknown) date) increasing unknown) agitation and now DTs. Her CIWA score went from 12 to (unknown) (no (unknown) (unknown) diphenhydramine (units (unknown) date) HCl 25 mg capsule unknown) 25 mg PO BEDTIME PRN insomnia #20 02/05/20 (unknown) (no (unknown) (unknown) docusate sodium (units (unknown) date) 100 mg capsule 100 unknown) mg PO BID #30 caps 02/05/20 (unknown) (no (unknown) (unknown) have limited (units (u nknown) date) history currently unknown) due to intoxication.? She states that she is (unknown) (no (unknown) (unknown) hemoglobin and (units (unknown) date) hematocrit are 11.5 unknown) and 35.3 respectively glucose is 111 calcium (unknown) (no (unknown) (unknown) household members (units (unknown) date) spouse,children unknown) (unknown) (no (unknown) (unknown) hydrocodone (units (un known) date) [HYDROCODONE] unknown) AdvReac Unknown VOMITING Verified 07/12/22 16:18 (unknown) (no (unknown) (unknown) ibuprofen 600 mg (units (unknown) date) tablet 600 mg PO unknown) Q6HR PRN Pain, Mild 07/04/20 Rx (unknown) (no (unknown) (unknown) infection and had (units (unknown) date) been given one dose unknown) of oral cephalexin for this. (unknown) (no (unknown) (unknown) metoclopramide (units (unknown) date) Allergy Mild unknown) RASH/HIVES Verified 07/12/22 16:18 (unknown) (no (unknown) (unknown) months.' She (units (u nknown) date) remained in the ED unknown) awaiting a bed and was receiving oral Ativan, (unknown) (no (unknown) (unknown) non-icteric, oral (units (unknown) date) mucosa pink and unknown) moist (unknown) (no (unknown) (unknown) of 2022 with (units (un known) date) similar symptoms.? unknown) She comes in complaining of needing help, states (unknown) (no (unknown) (unknown) ondansetron 4 mg (units (unknown) date) disintegrating 4 mg unknown) PO Q6H PRN nausea and 06/12/22 Rx (unknown) (no (unknown) (unknown) ondansetron 4 mg (units (unknown) date) disintegrating 4 mg unknown) PO Q8H PRN nausea and 01/01/20 07/03/20 Rx (unknown) (no (unknown) (unknown) ondansetron 4 mg (units (unknown) date) disintegrating 4 mg unknown) PO Q8H PRN nausea and 02/05/20 07/03/20 Rx (unknown) (no (unknown) (unknown) over 20 and she (units (unknown) date) was deemed to unknown) medically unstable for transfer to rehab, ED is (unknown) (no (unknown) (unknown) prenat.vits,otis,mi (units (unknown) date) o-brvw-cfeey 1 tab unknown) PO DAILY 12/30/19 07/03/20 History (unknown) (no (unknown) (unknown) recently relapsed (units (unknown) date) due to a divorce unknown) with her .? She used to be a frequent (unknown) (no (unknown) (unknown) requesting an ICU (units (unknown) date) bed currently. She unknown) was also found to have a urinary tract (unknown) (no (unknown) (unknown) saturation of 97% (units (unknown) date) on room air she unknown) weighs 49.8 kg with a BMI of 20.1. WBC is 3.3 (unknown) (no (unknown) (unknown) slurred (units (unkno wn) date) unknown) (unknown) (no (unknown) (unknown) tablet vomiting (units (unknown) date) #14 tabs unknown) (unknown) (no (unknown) (unknown) tablet vomiting (units (unknown) date) #20 tabs unknown) (unknown) (no (unknown) (unknown) tablet vomiting (units (unknown) date) #30 tabs unknown) (unknown) (no (unknown) (unknown) that she drinks (units (unknown) date) vodka and admits to unknown) drinking heavily today, states that she took (unknown) (no (unknown) (unknown) the bottle upside (units (unknown) date) down and started unknown) chucking from it.? She states that she drank (unknown) (no (unknown) (unknown) today; this time (units (unknown) date) is exclusive of unknown) procedural time. (unknown) (no (unknown) (unknown) tramadol 50 mg (units (unknown) date) tablet 50 mg PO Q6H unknown) PRN pain #10 tabs 06/12/22 Rx (unknown) (no (unknown) (unknown) visitor for (units (un known) date) alcohol related unknown) complaints through 2019, and she presented to the Result panel [id number] (unknown) (no (unknown) (unknown) (no value) (units (unk nown) date) unknown) (unknown) (no (unknown) (unknown) (1-3) #30 tabs (units (unknown) date) unknown) (unknown) (no (unknown) (unknown) (Benadryl) caps (units (unknown) date) unknown) (unknown) (no (unknown) (unknown) (Colace) (units (unkno wn) date) unknown) (unknown) (no (unknown) (unknown) (Tylenol) (units (unkn own) date) unknown) (unknown) (no (unknown) (unknown) (past 8 hours): (units (unknown) date) unknown) (unknown) (no (unknown) (unknown) - CIWA protocol (units (unknown) date) and seizure unknown) precautions (unknown) (no (unknown) (unknown) - She has a (units (unk nown) date) prescribed bottle unknown) of seroquel, which ED stated she was encouraged to (unknown) (no (unknown) (unknown) - She is ordered (units (unknown) date) for a one time dose unknown) of IV phenobarbitol 130 mg X 1 (unknown) (no (unknown) (unknown) - She received (units (unknown) date) multiple doses of unknown) oral ativan, IV was placed in the ED. (unknown) (no (unknown) (unknown) - She was (units (unkn own) date) administered a 1 unknown) time dose of cephalexin po in the ED (unknown) (no (unknown) (unknown) - She will be (units ( unknown) date) ordered for a unknown) librium tapor (unknown) (no (unknown) (unknown) - She will be (units ( unknown) date) started on IV unknown) ceftriaxone 1 gram daily (unknown) (no (unknown) (unknown) [id number] (units (unkn own) date) unknown) (unknown) (no (unknown) (unknown) 01:28 07/13/22 (units (unknown) date) unknown) (unknown) (no (unknown) (unknown) 01:50 (units (unkno wn) date) unknown) (unknown) (no (unknown) (unknown) 07/03/20 Rx (units (un known) date) unknown) (unknown) (no (unknown) (unknown) 02:00 07/13/22 (units (unknown) date) unknown) (unknown) (no (unknown) (unknown) 02:14 07/13/22 (units (unknown) date) unknown) (unknown) (no (unknown) (unknown) 02:14 (units (unkno wn) date) unknown) (unknown) (no (unknown) (unknown) 02:30 07/13/22 (units (unknown) date) unknown) (unknown) (no (unknown) (unknown) 07/12/22 07/12/22 (units (unknown) date) 07/12/22 unknown) (unknown) (no (unknown) (unknown) 07/12/22 19:15 (units (unknown) date) unknown) (unknown) (no (unknown) (unknown) 07/12/22 (units (unkno wn) date) unknown) (unknown) (no (unknown) (unknown) 07/13/22 0726 (units ( unknown) date) unknown) (unknown) (no (unknown) (unknown) 07/13/22 (units (unkno wn) date) unknown) (unknown) (no (unknown) (unknown) 03:00 07/13/22 (units (unknown) date) unknown) (unknown) (no (unknown) (unknown) 03:30 (units (unkno wn) date) unknown) (unknown) (no (unknown) (unknown) 04:00 07/13/22 (units (unknown) date) unknown) (unknown) (no (unknown) (unknown) 04:30 07/13/22 (units (unknown) date) unknown) (unknown) (no (unknown) (unknown) 05:00 (units (unkno wn) date) unknown) (unknown) (no (unknown) (unknown) 05:30 07/13/22 (units (unknown) date) unknown) (unknown) (no (unknown) (unknown) 05:54 07/13/22 (units (unknown) date) unknown) (unknown) (no (unknown) (unknown) 05:54 (units (unkno wn) date) unknown) (unknown) (no (unknown) (unknown) 06:00 07/13/22 (units (unknown) date) unknown) (unknown) (no (unknown) (unknown) 06:00 (units (unkno wn) date) unknown) (unknown) (no (unknown) (unknown) 16:32 16:32 16:32 (units (unknown) date) unknown) (unknown) (no (unknown) (unknown) 19:15 19:15 19:15 (units (unknown) date) unknown) (unknown) (no (unknown) (unknown) 20 and she was (units (unknown) date) deemed to medically unknown) unstable for transfer to rehab, ED is (unknown) (no (unknown) (unknown) 23:30 07/13/22 (units (unknown) date) unknown) (unknown) (no (unknown) (unknown) 750 mL of time.? (units (unknown) date) She just she has unknown) nothing to do but relapsed.? This 3 weeks ago (unknown) (no (unknown) (unknown) 8.0 AST 67 (units (unkn own) date) urinalysis unknown) indicated many bacteria alcohol level was 338 and COVID-19 (unknown) (no (unknown) (unknown) ALT 21 (units (unkno wn) date) unknown) (unknown) (no (unknown) (unknown) ALT (units (unkno wn) date) unknown) (unknown) (no (unknown) (unknown) AST 67 H (units (unkno wn) date) unknown) (unknown) (no (unknown) (unknown) AST (units (unkno wn) date) unknown) (unknown) (no (unknown) (unknown) Abd: soft, (units (unk nown) date) non-tender, unknown) normoactive BTs (unknown) (no (unknown) (unknown) Acetaminophen < 10 (units (unknown) date) unknown) (unknown) (no (unknown) (unknown) Acetaminophen (units ( unknown) date) unknown) (unknown) (no (unknown) (unknown) Acute alcohol (units ( unknown) date) intoxication and unknown) withdrawal, present on admission (unknown) (no (unknown) (unknown) Age/Sex: 31 / F (units (unknown) date) unknown) (unknown) (no (unknown) (unknown) Albumin 4.3 (units (un known) date) unknown) (unknown) (no (unknown) (unknown) Albumin (units (unkno wn) date) unknown) (unknown) (no (unknown) (unknown) Albumin/Globulin (units (unknown) date) Ratio 1.4 unknown) (unknown) (no (unknown) (unknown) Albumin/Globulin (units (unknown) date) Ratio unknown) (unknown) (no (unknown) (unknown) Alcoholism (units (unk nown) date) unknown) (unknown) (no (unknown) (unknown) Alkaline (units (unkno wn) date) Phosphatase 98 unknown) (unknown) (no (unknown) (unknown) Alkaline (units (unkno wn) date) Phosphatase unknown) (unknown) (no (unknown) (unknown) Allergies (units (unkn own) date) unknown) (unknown) (no (unknown) (unknown) Allergy/AdvReac (units (unknown) date) Type Severity unknown) Reaction Status Date / Time (unknown) (no (unknown) (unknown) Anemia (-2018) (units (unknown) date) unknown) (unknown) (no (unknown) (unknown) Assessment + Plan (units (unknown) date) narrative: unknown) (unknown) (no (unknown) (unknown) Assessment + Plan (units (unknown) date) unknown) (unknown) (no (unknown) (unknown) BUN 9 (units (unkno wn) date) unknown) (unknown) (no (unknown) (unknown) BUN (units (unkno wn) date) unknown) (unknown) (no (unknown) (unknown) BUN/Creatinine (units (unknown) date) Ratio 11.0 unknown) (unknown) (no (unknown) (unknown) BUN/Creatinine (units (unknown) date) Ratio unknown) (unknown) (no (unknown) (unknown) Baso # (Auto) 0 (units (unknown) date) unknown) (unknown) (no (unknown) (unknown) Baso # (Auto) (units ( unknown) date) unknown) (unknown) (no (unknown) (unknown) Baso % (Auto) 0.9 (units (unknown) date) unknown) (unknown) (no (unknown) (unknown) Baso % (Auto) (units ( unknown) date) unknown) (unknown) (no (unknown) (unknown) Been Physically (units (unknown) date) Hurt or No unknown) (unknown) (no (unknown) (unknown) Blood Pressure (units (unknown) date) 102/59 L unknown) (unknown) (no (unknown) (unknown) Blood Pressure (units (unknown) date) 93/54 L unknown) (unknown) (no (unknown) (unknown) Blood Pressure (units (unknown) date) 99/52 L unknown) (unknown) (no (unknown) (unknown) Blood Pressure (units (unknown) date) 99/58 L unknown) (unknown) (no (unknown) (unknown) Blood Pressure (units (unknown) date) [Left Arm] 95/53 L unknown) (unknown) (no (unknown) (unknown) Blood Pressure (units (unknown) date) [Left Arm] unknown) (unknown) (no (unknown) (unknown) Blood Pressure (units (unknown) date) unknown) (unknown) (no (unknown) (unknown) COVID-19 status: (units (unknown) date) Negative unknown) (unknown) (no (unknown) (unknown) COVID-19 (units (unkno wn) date) unknown) (unknown) (no (unknown) (unknown) CV: tachycardic, (units (unknown) date) no murmur or rubs unknown) (unknown) (no (unknown) (unknown) Calcium 8.0 L (units ( unknown) date) unknown) (unknown) (no (unknown) (unknown) Calcium (units (unkno wn) date) unknown) (unknown) (no (unknown) (unknown) Carbon Dioxide 23 (units (unknown) date) unknown) (unknown) (no (unknown) (unknown) Carbon Dioxide (units (unknown) date) unknown) (unknown) (no (unknown) (unknown) Chief complaint: (units (unknown) date) Acute alcohol unknown) withdrawal (unknown) (no (unknown) (unknown) Chloride 104 (units (u nknown) date) unknown) (unknown) (no (unknown) (unknown) Chloride (units (unkno wn) date) unknown) (unknown) (no (unknown) (unknown) Code status: (units (u nknown) date) patient unable to unknown) state, presumed to be full code. (unknown) (no (unknown) (unknown) Consultants None (units (unknown) date) unknown) (unknown) (no (unknown) (unknown) Creatinine 0.82 (units (unknown) date) unknown) (unknown) (no (unknown) (unknown) Creatinine (units (unk nown) date) unknown) (unknown) (no (unknown) (unknown) Critical Care (units ( unknown) date) time: unknown) (unknown) (no (unknown) (unknown) : 1990 (units (unknown) date) Acct:[id number] unknown) (unknown) (no (unknown) (unknown) Date Patient Seen: (units (unknown) date) 07/13/22 unknown) (unknown) (no (unknown) (unknown) Date of Service: (units (unknown) date) 07/13/22 unknown) (unknown) (no (unknown) (unknown) Deep Vein (units (unkn own) date) Thrombosis/Pulmonar unknown) y Embolism Present on Admission: No (unknown) (no (unknown) (unknown) Discussion of (units ( unknown) date) results, plan of unknown) care with independent HCP/other: ED provider (unknown) (no (unknown) (unknown) Dispo: home vs (units (unknown) date) rehab unknown) (unknown) (no (unknown) (unknown) Environment (units (un known) date) unknown) (unknown) (no (unknown) (unknown) Eos # (Auto) 0 (units (unknown) date) unknown) (unknown) (no (unknown) (unknown) Eos # (Auto) (units (u nknown) date) unknown) (unknown) (no (unknown) (unknown) Eos % (Auto) 0.3 L (units (unknown) date) unknown) (unknown) (no (unknown) (unknown) Eos % (Auto) (units (u nknown) date) unknown) (unknown) (no (unknown) (unknown) Estimated GFR > 60 (units (unknown) date) unknown) (unknown) (no (unknown) (unknown) Estimated GFR (units ( unknown) date) unknown) (unknown) (no (unknown) (unknown) Ethyl Alcohol 338 (units (unknown) date) H unknown) (unknown) (no (unknown) (unknown) Ethyl Alcohol (units ( unknown) date) unknown) (unknown) (no (unknown) (unknown) Exam Narrative: (units (unknown) date) unknown) (unknown) (no (unknown) (unknown) Exam (units (unkno wn) date) unknown) (unknown) (no (unknown) (unknown) Extremities: moves (units (unknown) date) all 4 extremities, unknown) is ambulatory, negative Lenny?s sign (unknown) (no (unknown) (unknown) FEN: IV fluids: NS (units (unknown) date) at 100 ml/hour, unknown) diet: general, labs: CBC, C/BMP, liver (unknown) (no (unknown) (unknown) Family + Social (units (unknown) date) History unknown) (unknown) (no (unknown) (unknown) Family History (units (unknown) date) (Reviewed 07/13/22 unknown) @ 06:49 by LYUDMILA Borden) (unknown) (no (unknown) (unknown) Family/Other (units (u nknown) date) Alcoholism unknown) (unknown) (no (unknown) (unknown) Family/Other (units (u nknown) date) Diabetes mellitus unknown) (unknown) (no (unknown) (unknown) Father Alcoholism (units (unknown) date) unknown) (unknown) (no (unknown) (unknown) Feels Safe in (units ( unknown) date) Current Yes unknown) (unknown) (no (unknown) (unknown) Free T4 0.93 (units (u nknown) date) unknown) (unknown) (no (unknown) (unknown) Free T4 (units (unkno wn) date) unknown) (unknown) (no (unknown) (unknown) Gen: Alert, (units (un known) date) oriented, unknown) well-developed 31 y.o. female, NAD (unknown) (no (unknown) (unknown) Globulin 3.0 (units (u nknown) date) unknown) (unknown) (no (unknown) (unknown) Globulin (units (unkno wn) date) unknown) (unknown) (no (unknown) (unknown) Glucose 111 H (units ( unknown) date) unknown) (unknown) (no (unknown) (unknown) Glucose (units (unkno wn) date) unknown) (unknown) (no [...] extraction () unknown) (unknown) (no (unknown) (unknown) HEENT: (units (unkno wn) date) normocephalic, unknown) atraumatic, conjunctiva clear, pinpoint pupils, sclera (unknown) (no (unknown) (unknown) Hct 35.3 L (units (unk nown) date) unknown) (unknown) (no (unknown) (unknown) Hct (units (unkno wn) date) unknown) (unknown) (no (unknown) (unknown) Hgb 11.5 L (units (unk nown) date) unknown) (unknown) (no (unknown) (unknown) Hgb (units (unkno wn) date) unknown) (unknown) (no (unknown) (unknown) History + Physical (units (unknown) date) Report unknown) (unknown) (no (unknown) (unknown) History of Present (units (unknown) date) Illness unknown) (unknown) (no (unknown) (unknown) Home Medications (units (unknown) date) and Allergies unknown) (unknown) (no (unknown) (unknown) Home Medications (units (unknown) date) unknown) (unknown) (no (unknown) (unknown) I confirm the (units (u nknown) date) patient?s Advance unknown) Care Plan is present, Code status is documented, (unknown) (no (unknown) (unknown) I spent a total of (units (unknown) date) 65 minutes of unknown) critical care time on this patient's care (unknown) (no (unknown) (unknown) Insomnia (units (unkno wn) date) unknown) (unknown) (no (unknown) (unknown) [facility] (units (unknown) date) [address] [place] [address] unknown) [place] [address] (unknown) (no (unknown) (unknown) Laboratory Results (units (unknown) date) - last 24 hr unknown) (unknown) (no (unknown) (unknown) Labs (units (unkno wn) date) unknown) (unknown) (no (unknown) (unknown) Labs: (units (unkno wn) date) unknown) (unknown) (no (unknown) (unknown) Lymph # (Auto) (units (unknown) date) 1700 unknown) (unknown) (no (unknown) (unknown) Lymph # (Auto) (units (unknown) date) unknown) (unknown) (no (unknown) (unknown) Lymph % (Auto) (units (unknown) date) 50.6 H unknown) (unknown) (no (unknown) (unknown) Lymph % (Auto) (units (unknown) date) unknown) (unknown) (no (unknown) (unknown) MCH 26.0 (units (unkno wn) date) unknown) (unknown) (no (unknown) (unknown) MCH (units (unkno wn) date) unknown) (unknown) (no (unknown) (unknown) MCHC 32.7 (units (unkn own) date) unknown) (unknown) (no (unknown) (unknown) MCHC (units (unkno wn) date) unknown) (unknown) (no (unknown) (unknown) MCV 79.5 L (units (unk nown) date) unknown) (unknown) (no (unknown) (unknown) MCV (units (unkno wn) date) unknown) (unknown) (no (unknown) (unknown) MIPS - Admit (units (u nknown) date) unknown) (unknown) (no (unknown) (unknown) MIPS - DC (units (unkn own) date) unknown) (unknown) (no (unknown) (unknown) Medical History (units (unknown) date) (Reviewed 07/13/22 unknown) @ 06:49 by LYUDMILA Borden) (unknown) (no (unknown) (unknown) Medication (units (unk nown) date) Instructions unknown) Recorded Confirmed Type (unknown) (no (unknown) (unknown) Meds (units (unkno wn) date) unknown) (unknown) (no (unknown) (unknown) Menometrorrhagia (units (unknown) date) unknown) (unknown) (no (unknown) (unknown) Yates # (Auto) 100 (units (unknown) date) unknown) (unknown) (no (unknown) (unknown) Yates # (Auto) (units ( unknown) date) unknown) (unknown) (no (unknown) (unknown) Yates % (Auto) 2.7 (units (unknown) date) L unknown) (unknown) (no (unknown) (unknown) Yates % (Auto) (units ( unknown) date) unknown) (unknown) (no (unknown) (unknown) Mother Diabetes (units (unknown) date) mellitus unknown) (unknown) (no (unknown) (unknown) Narrative (units (unkn own) date) unknown) (unknown) (no (unknown) (unknown) Narrative: (units (unk nown) date) unknown) (unknown) (no (unknown) (unknown) Neck: supple, full (units (unknown) date) ROM, no JVD, unknown) trachea is midline (unknown) (no (unknown) (unknown) Neuro: very (units (un known) date) lethargic and unknown) unable to hold a meaningful conversation, speech is (unknown) (no (unknown) (unknown) Neut # (Auto) 1500 (units (unknown) date) unknown) (unknown) (no (unknown) (unknown) Neut # (Auto) (units ( unknown) date) unknown) (unknown) (no (unknown) (unknown) Neut % (Auto) 45.5 (units (unknown) date) L unknown) (unknown) (no (unknown) (unknown) Neut % (Auto) (units ( unknown) date) unknown) (unknown) (no (unknown) (unknown) Obesity (units (unkno wn) date) unknown) (unknown) (no (unknown) (unknown) Objective (units (unkn own) date) unknown) (unknown) (no (unknown) (unknown) Other independent (units (unknown) date) historians: none unknown) (unknown) (no (unknown) (unknown) Overweight (units (unk nown) date) unknown) (unknown) (no (unknown) (unknown) Oxygen Delivery (units (unknown) date) Method Room Air unknown) Room Air (unknown) (no (unknown) (unknown) Oxygen Delivery (units (unknown) date) Method Room Air unknown) (unknown) (no (unknown) (unknown) Oxygen Delivery (units (unknown) date) Method unknown) (unknown) (no (unknown) (unknown) PCR done on July (units (unknown) date) was negative. unknown) (unknown) (no (unknown) (unknown) Patient History (units (unknown) date) unknown) (unknown) (no (unknown) (unknown) Patient is admitted (units (unknown) date) to the inpatient unknown) ICU service due to the severity of disease, (unknown) (no (unknown) (unknown) Patient is heavily (units (unknown) date) sedated, falling unknown) asleep during my visit and unable to provide (unknown) (no (unknown) (unknown) Patient: (units (unkno wn) date) Sarah Connors R unknown) MR#: M (unknown) (no (unknown) (unknown) Plt Count 226 (units ( unknown) date) unknown) (unknown) (no (unknown) (unknown) Plt Count (units (unkn own) date) unknown) (unknown) (no (unknown) (unknown) Potassium 3.9 (units ( unknown) date) unknown) (unknown) (no (unknown) (unknown) Potassium (units (unkn own) date) unknown) (unknown) (no (unknown) (unknown) Provider: (units (unkn own) date) Aide Haney unknown) (unknown) (no (unknown) (unknown) Psyche: appears to (units (unknown) date) be hallucinating unknown) (unknown) (no (unknown) (unknown) Pulse Oximetry 97 (units (unknown) date) 100 unknown) (unknown) (no (unknown) (unknown) Pulse Oximetry 97 (units (unknown) date) 98 98 unknown) (unknown) (no (unknown) (unknown) Pulse Oximetry 97 (units (unknown) date) unknown) (unknown) (no (unknown) (unknown) Pulse Oximetry 98 (units (unknown) date) 97 96 unknown) (unknown) (no (unknown) (unknown) Pulse Oximetry 98 (units (unknown) date) 98 unknown) (unknown) (no (unknown) (unknown) Pulse Oximetry 99 (units (unknown) date) 97 97 unknown) (unknown) (no (unknown) (unknown) Pulse Rate 119 H (units (unknown) date) unknown) (unknown) (no (unknown) (unknown) Pulse Rate 120 H (units (unknown) date) 122 H unknown) (unknown) (no (unknown) (unknown) Pulse Rate 90 99 H (units (unknown) date) 109 H unknown) (unknown) (no (unknown) (unknown) Pulse Rate 94 H 92 (units (unknown) date) H 88 unknown) (unknown) (no (unknown) (unknown) Pulse Rate 97 H 87 (units (unknown) date) unknown) (unknown) (no (unknown) (unknown) Pulse Rate 98 H (units (unknown) date) 101 H 109 H unknown) (unknown) (no (unknown) (unknown) RBC 4.44 (units (unkno wn) date) unknown) (unknown) (no (unknown) (unknown) RBC (units (unkno wn) date) unknown) (unknown) (no (unknown) (unknown) RDW 17.3 H (units (unk nown) date) unknown) (unknown) (no (unknown) (unknown) RDW (units (unkno wn) date) unknown) (unknown) (no (unknown) (unknown) ROS: Yes (units (unkno wn) date) unobtainable due to unknown) mental status (unknown) (no (unknown) (unknown) Resp: Lungs CTA, (units (unknown) date) non-labored unknown) breathing (unknown) (no (unknown) (unknown) Respiratory Rate (units (unknown) date) 16 18 unknown) (unknown) (no (unknown) (unknown) Respiratory Rate (units (unknown) date) unknown) (unknown) (no (unknown) (unknown) Result date/Date (units (unknown) date) tested (Pos, unknown) Neg/Pending): 07/12/22 (unknown) (no (unknown) (unknown) Review of Systems (units (unknown) date) unknown) (unknown) (no (unknown) (unknown) Reviewed outside (units (unknown) date) records: prior ED unknown) records (unknown) (no (unknown) (unknown) S/P myringotomy (units (unknown) date) with insertion of unknown) tube (unknown) (no (unknown) (unknown) SARS-CoV-2 (PCR) (units (unknown) date) Negative unknown) (unknown) (no (unknown) (unknown) SARS-CoV-2 (PCR) (units (unknown) date) unknown) (unknown) (no (unknown) (unknown) SCDs (units (unkno wn) date) unknown) (unknown) (no (unknown) (unknown) (spontaneous (units (unknown) date) vaginal delivery) unknown) (-09/05/18) (unknown) (no (unknown) (unknown) Safety + (units (unkno wn) date) Behavioral: unknown) (unknown) (no (unknown) (unknown) Salicylates < 1.0 (units (unknown) date) unknown) (unknown) (no (unknown) (unknown) Salicylates (units (un known) date) unknown) (unknown) (no (unknown) (unknown) She remained in (units (unknown) date) the ED awaiting a unknown) bed and was receiving oral Ativan, but (unknown) (no (unknown) (unknown) Signed (units (unkno wn) date) By:<Electronically unknown) signed by Aide Haney> (unknown) (no (unknown) (unknown) Skin: no lesions (units (unknown) date) or rashes, dry and unknown) intact (unknown) (no (unknown) (unknown) Smoker (units (unkno wn) date) unknown) (unknown) (no (unknown) (unknown) [place] and (units (unknown) date) [place] in the unknown) past.? She has been sober for a total of 18 (unknown) (no (unknown) (unknown) Smoking Status (units (unknown) date) Former smoker unknown) (unknown) (no (unknown) (unknown) Social History: (units (unknown) date) unknown) (unknown) (no (unknown) (unknown) Social determinants (units (unknown) date) of health: history unknown) of alcohol abuse, has pre-school children (unknown) (no (unknown) (unknown) Sodium 140 (units (unk nown) date) unknown) (unknown) (no (unknown) (unknown) Sodium (units (unkno wn) date) unknown) (unknown) (no (unknown) (unknown) Sarah Freemanis a (units (unknown) date) 31-year-old female unknown) with history of alcohol abuse and appears to (unknown) (no (unknown) (unknown) Sarah Connors is (units (unknown) date) admitted to the unknown) inpatient ICU for further management of (unknown) (no (unknown) (unknown) Substance Use Type (units (unknown) date) does not use unknown) (unknown) (no (unknown) (unknown) Suicidal Ideation (units (unknown) date) Description None unknown) (unknown) (no (unknown) (unknown) Surgical History (units (unknown) date) (Reviewed 07/13/22 unknown) @ 06:49 by LYUDMILA Borden) (unknown) (no (unknown) (unknown) Surrogate decision (units (unknown) date) maker is in unknown) patient?s record: No, patient unable to (unknown) (no (unknown) (unknown) TSH 1.24 (units (unkno wn) date) unknown) (unknown) (no (unknown) (unknown) TSH (units (unkno wn) date) unknown) (unknown) (no (unknown) (unknown) The patient has (units (unknown) date) current or prior unknown) documentation of left ventricular ejection (unknown) (no (unknown) (unknown) Threatened By a (units (unknown) date) Person unknown) (unknown) (no (unknown) (unknown) Time Patient Seen: (units (unknown) date) 06:48 unknown) (unknown) (no (unknown) (unknown) Time Spent With (units (unknown) date) Patient unknown) (unknown) (no (unknown) (unknown) Tobacco + (units (unkn own) date) Substance use: unknown) (unknown) (no (unknown) (unknown) Tobacco type (units (u nknown) date) cigarettes unknown) (unknown) (no (unknown) (unknown) Total Bilirubin (units (unknown) date) 0.4 unknown) (unknown) (no (unknown) (unknown) Total Bilirubin (units (unknown) date) unknown) (unknown) (no (unknown) (unknown) Total Protein 7.3 (units (unknown) date) unknown) (unknown) (no (unknown) (unknown) Total Protein (units ( unknown) date) unknown) (unknown) (no (unknown) (unknown) U Benzodiazepines (units (unknown) date) Scrn Negative unknown) (unknown) (no (unknown) (unknown) U Benzodiazepines (units (unknown) date) Scrn unknown) (unknown) (no (unknown) (unknown) U Marijuana (THC) (units (unknown) date) Screen Negative unknown) (unknown) (no (unknown) (unknown) U Marijuana (THC) (units (unknown) date) Screen unknown) (unknown) (no (unknown) (unknown) U Methamphetamines (units (unknown) date) Scrn Negative unknown) (unknown) (no (unknown) (unknown) U Methamphetamines (units (unknown) date) Scrn unknown) (unknown) (no (unknown) (unknown) U Opiates 300ng/mL (units (unknown) date) cut Negative unknown) (unknown) (no (unknown) (unknown) U Opiates 300ng/mL (units (unknown) date) cut unknown) (unknown) (no (unknown) (unknown) U Tricyclic (units (un known) date) Antidepress unknown) Negative (unknown) (no (unknown) (unknown) U Tricyclic (units (un known) date) Antidepress unknown) (unknown) (no (unknown) (unknown) UTI, acute but (units (unknown) date) asymptomatic unknown) (unknown) (no (unknown) (unknown) Ur Amphetamines (units (unknown) date) Screen Negative unknown) (unknown) (no (unknown) (unknown) Ur Amphetamines (units (unknown) date) Screen unknown) (unknown) (no (unknown) (unknown) Ur Barbiturates (units (unknown) date) Screen Negative unknown) (unknown) (no (unknown) (unknown) Ur Barbiturates (units (unknown) date) Screen unknown) (unknown) (no (unknown) (unknown) Ur Culture (units (unk nown) date) Indicated? Specimen unknown) cultured (unknown) (no (unknown) (unknown) Ur Culture (units (unk nown) date) Indicated? unknown) (unknown) (no (unknown) (unknown) Ur MDMA Scrn (units (u nknown) date) (Ecstasy) Negative unknown) (unknown) (no (unknown) (unknown) Ur MDMA Scrn (units (u nknown) date) (Ecstasy) unknown) (unknown) (no (unknown) (unknown) Ur Oxycodone (units (u nknown) date) Screen Negative unknown) (unknown) (no (unknown) (unknown) Ur Oxycodone (units (u nknown) date) Screen unknown) (unknown) (no (unknown) (unknown) Ur Phencyclidine (units (unknown) date) Scrn Negative unknown) (unknown) (no (unknown) (unknown) Ur Phencyclidine (units (unknown) date) Scrn unknown) (unknown) (no (unknown) (unknown) Ur Squamous Epith (units (unknown) date) Cells 1-5 /hpf unknown) (unknown) (no (unknown) (unknown) Ur Squamous Epith (units (unknown) date) Cells unknown) (unknown) (no (unknown) (unknown) Urine Bacteria (units (unknown) date) Many (>30) H unknown) (unknown) (no (unknown) (unknown) Urine Bacteria (units (unknown) date) unknown) (unknown) (no (unknown) (unknown) Urine Cocaine (units ( unknown) date) Screen Negative unknown) (unknown) (no (unknown) (unknown) Urine Cocaine (units ( unknown) date) Screen unknown) (unknown) (no (unknown) (unknown) Urine Methadone (units (unknown) date) Screen Negative unknown) (unknown) (no (unknown) (unknown) Urine Methadone (units (unknown) date) Screen unknown) (unknown) (no (unknown) (unknown) Urine RBC 1-5/hpf (units (unknown) date) unknown) (unknown) (no (unknown) (unknown) Urine RBC (units (unkn own) date) unknown) (unknown) (no (unknown) (unknown) Urine WBC 1-5/hpf (units (unknown) date) unknown) (unknown) (no (unknown) (unknown) Urine WBC (units (unkn own) date) unknown) (unknown) (no (unknown) (unknown) VTE Prophylaxis: (units (unknown) date) Wells risk score X unknown) Enoxaparin 40 mg subQ once daily Bilateral (unknown) (no (unknown) (unknown) VTE (units (unkno wn) date) unknown) (unknown) (no (unknown) (unknown) Vital Signs (units (un known) date) unknown) (unknown) (no (unknown) (unknown) WBC 3.3 L (units (unkn own) date) unknown) (unknown) (no (unknown) (unknown) WBC (units (unkno wn) date) unknown) (unknown) (no (unknown) (unknown) [facility] emergency (units (unknown) date) department on unknown) 06/18/2022 and a few days prior to that with a (unknown) (no (unknown) (unknown) [Embedded Image (units (unknown) date) Not Available] unknown) (unknown) (no (unknown) (unknown) [METOCLOPRAMIDE] (units (unknown) date) unknown) (unknown) (no (unknown) (unknown) [X] I have (units (unk nown) date) utilized all unknown) available immediate resources to obtain, update, or (unknown) (no (unknown) (unknown) a history, except (units (unknown) date) for 'I went on a unknown) castañeda' for 12 days. Per the ED notes, (unknown) (no (unknown) (unknown) acetaminophen 325 (units (unknown) date) mg tablet 325 mg PO unknown) Q6H PRN pain #20 tabs 02/05/20 07/03/20 Rx (unknown) (no (unknown) (unknown) afebrile, blood (units (unknown) date) pressure 93/54 unknown) heart rate 119 respiratory rate 18 oxygen (unknown) (no (unknown) (unknown) alcohol intake (units (unknown) date) former unknown) (unknown) (no (unknown) (unknown) alcohol intake (units (unknown) date) frequency 3 or more unknown) drinks per day (unknown) (no (unknown) (unknown) alcohol (units (unkno wn) date) withdrawal. unknown) (unknown) (no (unknown) (unknown) and she drinking (units (unknown) date) daily since this unknown) happened.? She wants rehab.? She has been (unknown) (no (unknown) (unknown) articulate (units (unk nown) date) preference. unknown) (unknown) (no (unknown) (unknown) at home. (units (unkno wn) date) unknown) (unknown) (no (unknown) (unknown) blood alcohol in (units (unknown) date) 300s, she was last unknown) here in the emergency department in May (unknown) (no (unknown) (unknown) developed (units (unkn own) date) increasing unknown) agitation and now DTs. Her CIWA score went from 12 to over (unknown) (no (unknown) (unknown) diphenhydramine (units (unknown) date) HCl 25 mg capsule unknown) 25 mg PO BEDTIME PRN insomnia #20 02/05/20 (unknown) (no (unknown) (unknown) docusate sodium (units (unknown) date) 100 mg capsule 100 unknown) mg PO BID #30 caps 02/05/20 (unknown) (no (unknown) (unknown) enzymes, Mag, (units ( unknown) date) PT/INR unknown) (unknown) (no (unknown) (unknown) fraction (LVEF) (units (unknown) date) less than 40%, or unknown) moderate or severely depressed left (unknown) (no (unknown) (unknown) have limited (units (u nknown) date) history currently unknown) due to intoxication.? She states that she is (unknown) (no (unknown) (unknown) hemoglobin and (units (unknown) date) hematocrit are 11.5 unknown) and 35.3 respectively glucose is 111 calcium (unknown) (no (unknown) (unknown) household members (units (unknown) date) spouse,children unknown) (unknown) (no (unknown) (unknown) hydrocodone (units (un known) date) [HYDROCODONE] unknown) AdvReac Unknown VOMITING Verified 07/12/22 16:18 (unknown) (no (unknown) (unknown) ibuprofen 600 mg (units (unknown) date) tablet 600 mg PO unknown) Q6HR PRN Pain, Mild 07/04/20 Rx (unknown) (no (unknown) (unknown) infection and had (units (unknown) date) been given one dose unknown) of oral cephalexin for this. She is (unknown) (no (unknown) (unknown) metoclopramide (units (unknown) date) Allergy Mild unknown) RASH/HIVES Verified 07/12/22 16:18 (unknown) (no (unknown) (unknown) months.' (units (unkno wn) date) unknown) (unknown) (no (unknown) (unknown) nights. (units (unkno wn) date) unknown) (unknown) (no (unknown) (unknown) non-icteric, oral (units (unknown) date) mucosa pink and unknown) moist (unknown) (no (unknown) (unknown) of 2022 with (units (un known) date) similar symptoms.? unknown) She comes in complaining of needing help, states (unknown) (no (unknown) (unknown) ondansetron 4 mg (units (unknown) date) disintegrating 4 mg unknown) PO Q6H PRN nausea and 06/12/22 Rx (unknown) (no (unknown) (unknown) ondansetron 4 mg (units (unknown) date) disintegrating 4 mg unknown) PO Q8H PRN nausea and 01/01/20 07/03/20 Rx (unknown) (no (unknown) (unknown) ondansetron 4 mg (units (unknown) date) disintegrating 4 mg unknown) PO Q8H PRN nausea and 02/05/20 07/03/20 Rx (unknown) (no (unknown) (unknown) prenat.vits,otis,mi (units (unknown) date) s-mfmv-oixqu 1 tab unknown) PO DAILY 12/30/19 07/03/20 History (unknown) (no (unknown) (unknown) recently relapsed (units (unknown) date) due to a divorce unknown) with her .? She used to be a frequent (unknown) (no (unknown) (unknown) requesting an ICU (units (unknown) date) bed currently. She unknown) was also found to have a urinary tract (unknown) (no (unknown) (unknown) review of the (units ( unknown) date) patient's current unknown) medications (unknown) (no (unknown) (unknown) risks of further (units (unknown) date) disease progression unknown) and this stay is expected to exceed 2 mid (unknown) (no (unknown) (unknown) saturation of 97% (units (unknown) date) on room air she unknown) weighs 49.8 kg with a BMI of 20.1. WBC is 3.3 (unknown) (no (unknown) (unknown) slurred (units (unkno wn) date) unknown) (unknown) (no (unknown) (unknown) tablet vomiting (units (unknown) date) #14 tabs unknown) (unknown) (no (unknown) (unknown) tablet vomiting (units (unknown) date) #20 tabs unknown) (unknown) (no (unknown) (unknown) tablet vomiting (units (unknown) date) #30 tabs unknown) (unknown) (no (unknown) (unknown) take, unknown if (units (unknown) date) she took. Dose is unknown) 300 mg to be taken at bedtime. (unknown) (no (unknown) (unknown) that she drinks (units (unknown) date) vodka and admits to unknown) drinking heavily today, states that she took (unknown) (no (unknown) (unknown) the bottle upside (units (unknown) date) down and started unknown) chucking from it.? She states that she drank (unknown) (no (unknown) (unknown) today; this time (units (unknown) date) is exclusive of unknown) procedural time. (unknown) (no (unknown) (unknown) tramadol 50 mg (units (unknown) date) tablet 50 mg PO Q6H unknown) PRN pain #10 tabs 06/12/22 Rx (unknown) (no (unknown) (unknown) ventricular (units (un known) date) systolic function.: unknown) No (unknown) (no (unknown) (unknown) visitor for (units (un known) date) alcohol related unknown) complaints through 2019, and she presented to the Result panel [id number] (unknown) (no date) (unknown) (unknown) No growth. (units (un known) unknown) Result panel [id number] (unknown) (no date) (unknown) (unknown) 0 /ul (unkn own) (unknown) (no date) (unknown) (unknown) 0 /ul (unkn own) (unknown) (no date) (unknown) (unknown) 0.3 % (unkn own) (unknown) (no date) (unknown) (unknown) 0.7 % (unkn own) (unknown) (no date) (unknown) (unknown) 1200 /ul (unkn own) (unknown) (no date) (unknown) (unknown) 129 x10 3/ul (unkn own) (unknown) (no date) (unknown) (unknown) 17.3 % (unkn own) (unknown) (no date) (unknown) (unknown) 1800 /ul (unkn own) (unknown) (no date) (unknown) (unknown) 200 /ul (unkn own) (unknown) (no date) (unknown) (unknown) 26.3 pg (unkn own) (unknown) (no date) (unknown) (unknown) 26.8 % (unkn own) (unknown) (no date) (unknown) (unknown) 3.3 x10 3/ul (unkn own) (unknown) (no date) (unknown) (unknown) 3.45 x10 6/ul (unkn own) (unknown) (no date) (unknown) (unknown) 34.0 % (unkn own) (unknown) (no date) (unknown) (unknown) 36.8 % (unkn own) (unknown) (no date) (unknown) (unknown) 55.8 % (unkn own) (unknown) (no date) (unknown) (unknown) 6.4 % (unkn own) (unknown) (no date) (unknown) (unknown) 77.5 fl (unkn own) (unknown) (no date) (unknown) (unknown) 9.1 g/dl (unkn own) Result panel 2370 (unknown) (no date) (unknown) (unknown) > 60 ml/min (unkn own) (unknown) (no date) (unknown) (unknown) > 60 ml/min (unkn own) (unknown) (no date) (unknown) (unknown) 0.67 mg/dl (unkn own) (unknown) (no date) (unknown) (unknown) 0.8 mg/dl (unkn own) (unknown) (no date) (unknown) (unknown) 1.3 (units unknown) (unknown) (unknown) (no date) (unknown) (unknown) 1.4 mg/dl (unkn own) (unknown) (no date) (unknown) (unknown) 100 mmol/l (unkn own) (unknown) (no date) (unknown) (unknown) 11 mg/dl (unkn own) (unknown) (no date) (unknown) (unknown) 135 mmol/l (unkn own) (unknown) (no date) (unknown) (unknown) 138 mg/dl (unkn own) (unknown) (no date) (unknown) (unknown) 138 mg/dl (unkn own) (unknown) (no date) (unknown) (unknown) 16.4 (units unknown) (unknown) (unknown) (no date) (unknown) (unknown) 19 iu/l (unkn own) (unknown) (no date) (unknown) (unknown) 2.7 g/dl (unkn own) (unknown) (no date) (unknown) (unknown) 28 mmol/l (unkn own) (unknown) (no date) (unknown) (unknown) 3.5 g/dl (unkn own) (unknown) (no date) (unknown) (unknown) 3.7 mmol/l (unkn own) (unknown) (no date) (unknown) (unknown) 52 iu/l (unkn own) (unknown) (no date) (unknown) (unknown) 6.2 g/dl (unkn own) (unknown) (no date) (unknown) (unknown) 75 u/l (unkn own) (unknown) (no date) (unknown) (unknown) 8.1 mg/dl (unkn own) Result panel [id number] (unknown) (no (unknown) (unknown) (no value) (units (unk nown) date) unknown) (unknown) (no (unknown) (unknown) (1) Alcohol (units (un known) date) withdrawal unknown) delirium, acute, hyperactive: (unknown) (no (unknown) (unknown) (2) Alcohol use (units (unknown) date) disorder: unknown) (unknown) (no (unknown) (unknown) (3) Acute (units (unkn own) date) cystitis: unknown) (unknown) (no (unknown) (unknown) (past 8 hours): (units (unknown) date) unknown) (unknown) (no (unknown) (unknown) 0.2 MCG/KG/HR (units ( unknown) date) unknown) (unknown) (no (unknown) (unknown) [id number] (units (unkn own) date) unknown) (unknown) (no (unknown) (unknown) 07/03/20] (units (unkn own) date) unknown) (unknown) (no (unknown) (unknown) 07/12/22 07/12/22 (units (unknown) date) 07/12/22 unknown) (unknown) (no (unknown) (unknown) 07/13/22 07/13/22 (units (unknown) date) unknown) (unknown) (no (unknown) (unknown) 07/13/22 08:50 (units (unknown) date) unknown) (unknown) (no (unknown) (unknown) 07/13/22 11:13 (units (unknown) date) unknown) (unknown) (no (unknown) (unknown) 07/13/22 (units (unkno wn) date) unknown) (unknown) (no (unknown) (unknown) 04:00 07/13/22 (units (unknown) date) unknown) (unknown) (no (unknown) (unknown) 04:30 07/13/22 (units (unknown) date) unknown) (unknown) (no (unknown) (unknown) 05:00 (units (unkno wn) date) unknown) (unknown) (no (unknown) (unknown) 05:30 07/13/22 (units (unknown) date) unknown) (unknown) (no (unknown) (unknown) 05:54 07/13/22 (units (unknown) date) unknown) (unknown) (no (unknown) (unknown) 05:54 (units (unkno wn) date) unknown) (unknown) (no (unknown) (unknown) 06:00 07/13/22 (units (unknown) date) unknown) (unknown) (no (unknown) (unknown) 06:39 (units (unkno wn) date) unknown) (unknown) (no (unknown) (unknown) 06:55 07/13/22 (units (unknown) date) unknown) (unknown) (no (unknown) (unknown) 07:04 07/13/22 (units (unknown) date) unknown) (unknown) (no (unknown) (unknown) 07:04 (units (unkno wn) date) unknown) (unknown) (no (unknown) (unknown) 07:33 07/13/22 (units (unknown) date) unknown) (unknown) (no (unknown) (unknown) 07:34 07/13/22 (units (unknown) date) unknown) (unknown) (no (unknown) (unknown) 07:34 (units (unkno wn) date) unknown) (unknown) (no (unknown) (unknown) 08:00 07/13/22 (units (unknown) date) unknown) (unknown) (no (unknown) (unknown) 08:33 (units (unkno wn) date) unknown) (unknown) (no (unknown) (unknown) 08:50 08:50 (units (un known) date) unknown) (unknown) (no (unknown) (unknown) 02/05/20 [Rx (units (u nknown) date) Confirmed 07/03/20] unknown) (unknown) (no (unknown) (unknown) 09:00 07/13/22 (units (unknown) date) unknown) (unknown) (no (unknown) (unknown) 09:46 (units (unkno wn) date) unknown) (unknown) (no (unknown) (unknown) 09:47 07/13/22 (units (unknown) date) unknown) (unknown) (no (unknown) (unknown) 16:32 16:32 16:32 (units (unknown) date) unknown) (unknown) (no (unknown) (unknown) 19:15 19:15 19:15 (units (unknown) date) unknown) (unknown) (no (unknown) (unknown) ALT 19 (units (unkno wn) date) unknown) (unknown) (no (unknown) (unknown) ALT 21 (units (unkno wn) date) unknown) (unknown) (no (unknown) (unknown) ALT (units (unkno wn) date) unknown) (unknown) (no (unknown) (unknown) AST 52 H (units (unkno wn) date) unknown) (unknown) (no (unknown) (unknown) AST 67 H (units (unkno wn) date) unknown) (unknown) (no (unknown) (unknown) AST (units (unkno wn) date) unknown) (unknown) (no (unknown) (unknown) Acetaminophen < 10 (units (unknown) date) unknown) (unknown) (no (unknown) (unknown) Acetaminophen (units ( unknown) date) unknown) (unknown) (no (unknown) (unknown) Administration (units (unknown) date) unknown) (unknown) (no (unknown) (unknown) Age/Sex: 31 / F (units (unknown) date) unknown) (unknown) (no (unknown) (unknown) Albumin 3.5 (units (un known) date) unknown) (unknown) (no (unknown) (unknown) Albumin 4.3 (units (un known) date) unknown) (unknown) (no (unknown) (unknown) Albumin (units (unkno wn) date) unknown) (unknown) (no (unknown) (unknown) Albumin/Globulin (units (unknown) date) Ratio 1.3 unknown) (unknown) (no (unknown) (unknown) Albumin/Globulin (units (unknown) date) Ratio 1.4 unknown) (unknown) (no (unknown) (unknown) Albumin/Globulin (units (unknown) date) Ratio unknown) (unknown) (no (unknown) (unknown) Alcohol Withdrawal (units (unknown) date) unknown) (unknown) (no (unknown) (unknown) Alcohol withdrawal (units (unknown) date) delirium, acute, unknown) hyperactive (unknown) (no (unknown) (unknown) Alcoholism (units (unk nown) date) unknown) (unknown) (no (unknown) (unknown) Alkaline (units (unkno wn) date) Phosphatase 75 unknown) (unknown) (no (unknown) (unknown) Alkaline (units (unkno wn) date) Phosphatase 98 unknown) (unknown) (no (unknown) (unknown) Alkaline (units (unkno wn) date) Phosphatase unknown) (unknown) (no (unknown) (unknown) Anemia (-2018) (units (unknown) date) unknown) (unknown) (no (unknown) (unknown) Assessment + Plan (units (unknown) date) unknown) (unknown) (no (unknown) (unknown) Assessment and (units (unknown) date) plan unknown) (unknown) (no (unknown) (unknown) Awake, oriented x (units (unknown) date) 3, severely unknown) confused, intermittently agitated/restless but (unknown) (no (unknown) (unknown) BUN 11 (units (unkno wn) date) unknown) (unknown) (no (unknown) (unknown) BUN 9 (units (unkno wn) date) unknown) (unknown) (no (unknown) (unknown) BUN (units (unkno wn) date) unknown) (unknown) (no (unknown) (unknown) BUN/Creatinine (units (unknown) date) Ratio 11.0 unknown) (unknown) (no (unknown) (unknown) BUN/Creatinine (units (unknown) date) Ratio 16.4 unknown) (unknown) (no (unknown) (unknown) BUN/Creatinine (units (unknown) date) Ratio unknown) (unknown) (no (unknown) (unknown) Baso # (Auto) 0 (units (unknown) date) unknown) (unknown) (no (unknown) (unknown) Baso # (Auto) (units ( unknown) date) unknown) (unknown) (no (unknown) (unknown) Baso % (Auto) 0.7 (units (unknown) date) unknown) (unknown) (no (unknown) (unknown) Baso % (Auto) 0.9 (units (unknown) date) unknown) (unknown) (no (unknown) (unknown) Baso % (Auto) (units ( unknown) date) unknown) (unknown) (no (unknown) (unknown) Blood Pressure (units (unknown) date) 104/59 L 123/58 L unknown) (unknown) (no (unknown) (unknown) Blood Pressure (units (unknown) date) 111/59 L unknown) (unknown) (no (unknown) (unknown) Blood Pressure (units (unknown) date) 116/75 116/65 unknown) (unknown) (no (unknown) (unknown) Blood Pressure (units (unknown) date) 93/54 L unknown) (unknown) (no (unknown) (unknown) Blood Pressure (units (unknown) date) 99/52 L unknown) (unknown) (no (unknown) (unknown) Blood Pressure (units (unknown) date) unknown) (unknown) (no (unknown) (unknown) CIWAPRN PRN (units (un known) date) Administration unknown) (unknown) (no (unknown) (unknown) CONT SANDY Infusion (units (unknown) date) unknown) (unknown) (no (unknown) (unknown) Calcium 8.0 L (units ( unknown) date) unknown) (unknown) (no (unknown) (unknown) Calcium 8.1 L (units ( unknown) date) unknown) (unknown) (no (unknown) (unknown) Calcium (units (unkno wn) date) unknown) (unknown) (no (unknown) (unknown) Carbon Dioxide 23 (units (unknown) date) unknown) (unknown) (no (unknown) (unknown) Carbon Dioxide 28 (units (unknown) date) unknown) (unknown) (no (unknown) (unknown) Carbon Dioxide (units (unknown) date) unknown) (unknown) (no (unknown) (unknown) Cardio (units (unkno wn) date) unknown) (unknown) (no (unknown) (unknown) Chest (units (unkno wn) date) unknown) (unknown) (no (unknown) (unknown) Chief complaint: (units (unknown) date) Acute alcohol unknown) withdrawal (unknown) (no (unknown) (unknown) Chlordiazepoxide (units (unknown) date) 25 Mg Capsule PO 50 unknown) mg (unknown) (no (unknown) (unknown) Chlordiazepoxide (units (unknown) date) HCl 50 mg 07/13/22 unknown) 09:10 07/13/22 09:45 (unknown) (no (unknown) (unknown) Chloride 100 (units (u nknown) date) unknown) (unknown) (no (unknown) (unknown) Chloride 104 (units (u nknown) date) unknown) (unknown) (no (unknown) (unknown) Chloride (units (unkno wn) date) unknown) (unknown) (no (unknown) (unknown) Cipro IV Infused (units (unknown) date) unknown) (unknown) (no (unknown) (unknown) Ciprofloxacin 400 (units (unknown) date) mg in 200 mls @ 200 unknown) mls/hr 07/13/22 08:00 07/13/22 09:21 (unknown) (no (unknown) (unknown) Consent obtained (units (unknown) date) for unknown) 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: Yes (unknown) (no (unknown) (unknown) Const (units (unkno wn) date) unknown) (unknown) (no (unknown) (unknown) Consult details (units (unknown) date) unknown) (unknown) (no (unknown) (unknown) Creatinine 0.67 (units (unknown) date) unknown) (unknown) (no (unknown) (unknown) Creatinine 0.82 (units (unknown) date) unknown) (unknown) (no (unknown) (unknown) Creatinine (units (unk nown) date) unknown) (unknown) (no (unknown) (unknown) Critical Care (units ( unknown) date) time: unknown) (unknown) (no (unknown) (unknown) Current (units (unkno wn) date) Medications unknown) (unknown) (no (unknown) (unknown) DAILY SANDY (units (unkn own) date) Administration unknown) (unknown) (no (unknown) (unknown) : 1990 (units (unknown) date) Acct:[id number] unknown) (unknown) (no (unknown) (unknown) Date of Service: (units (unknown) date) 07/13/22 unknown) (unknown) (no (unknown) (unknown) Enoxaparin 40 (units ( unknown) date) Mg/0.4 Ml Syringe unknown) SUBCUT 40 mg (unknown) (no (unknown) (unknown) Enoxaparin Sodium (units (unknown) date) 40 mg 07/13/22 unknown) 09:00 07/13/22 09:28 (unknown) (no (unknown) (unknown) Eos # (Auto) 0 (units (unknown) date) unknown) (unknown) (no (unknown) (unknown) Eos # (Auto) (units (u nknown) date) unknown) (unknown) (no (unknown) (unknown) Eos % (Auto) 0.3 L (units (unknown) date) unknown) (unknown) (no (unknown) (unknown) Eos % (Auto) (units (u nknown) date) unknown) (unknown) (no (unknown) (unknown) Estimated GFR > 60 (units (unknown) date) unknown) (unknown) (no (unknown) (unknown) Estimated GFR (units ( unknown) date) unknown) (unknown) (no (unknown) (unknown) Ethyl Alcohol 338 (units (unknown) date) H unknown) (unknown) (no (unknown) (unknown) Ethyl Alcohol (units ( unknown) date) unknown) (unknown) (no (unknown) (unknown) Exam (units (unkno wn) date) unknown) (unknown) (no (unknown) (unknown) Family History (units (unknown) date) (Reviewed 07/13/22 unknown) @ 06:49 by LYUDMILA Borden) (unknown) (no (unknown) (unknown) Family/Other (units (u nknown) date) Alcoholism unknown) (unknown) (no (unknown) (unknown) Family/Other (units (u nknown) date) Diabetes mellitus unknown) (unknown) (no (unknown) (unknown) Father Alcoholism (units (unknown) date) unknown) (unknown) (no (unknown) (unknown) Folic Acid 1 Mg (units (unknown) date) Tablet PO 1 mg unknown) (unknown) (no (unknown) (unknown) Folic Acid 1 mg (units (unknown) date) 07/13/22 09:00 unknown) 07/13/22 09:27 (unknown) (no (unknown) (unknown) Free T4 0.93 (units (u nknown) date) unknown) (unknown) (no (unknown) (unknown) Free T4 (units (unkno wn) date) unknown) (unknown) (no (unknown) (unknown) Generic Name Dose (units (unknown) date) Route Start Last unknown) Admin (unknown) (no (unknown) (unknown) Globulin 2.7 (units (u nknown) date) unknown) (unknown) (no (unknown) (unknown) Globulin 3.0 (units (u nknown) date) unknown) (unknown) (no (unknown) (unknown) Globulin (units (unkno wn) date) unknown) (unknown) (no (unknown) (unknown) Glucose 111 H (units ( unknown) date) unknown) (unknown) (no (unknown) (unknown) Glucose 138 H (units ( unknown) date) unknown) (unknown) (no (unknown) (unknown) Glucose (units (unkno wn) date) unknown) (unknown) (no [...] extraction () unknown) (unknown) (no (unknown) (unknown) Hct 26.8 L (units (unk nown) date) unknown) (unknown) (no (unknown) (unknown) Hct 35.3 L (units (unk nown) date) unknown) (unknown) (no (unknown) (unknown) Hct (units (unkno wn) date) unknown) (unknown) (no (unknown) (unknown) Hematuria (units (unkn own) date) presence: without unknown) hematuria Qualified Code(s): N30.00 - Acute (unknown) (no (unknown) (unknown) Hgb 11.5 L (units (unk nown) date) unknown) (unknown) (no (unknown) (unknown) Hgb 9.1 L (units (unkn own) date) unknown) (unknown) (no (unknown) (unknown) Hgb (units (unkno wn) date) unknown) (unknown) (no (unknown) (unknown) History of Present (units (unknown) date) Illness unknown) (unknown) (no (unknown) (unknown) Home Medications (units (unknown) date) unknown) (unknown) (no (unknown) (unknown) I spent a total of (units (unknown) date) [] minutes of unknown) critical care time on this patient's care (unknown) (no (unknown) (unknown) In Sinus (units (unkno wn) date) Tachycardia unknown) (unknown) (no (unknown) (unknown) 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 unknown) (unknown) (no (unknown) (unknown) Insomnia (units (unkno wn) date) unknown) (unknown) (no (unknown) (unknown) [facility] (units (unknown) date) [address] unknown) [place] [address] (unknown) (no (unknown) (unknown) Laboratory Results (units (unknown) date) - last 24 hr unknown) (unknown) (no (unknown) (unknown) Labs (units (unkno wn) date) unknown) (unknown) (no (unknown) (unknown) Labs: (units (unkno wn) date) unknown) (unknown) (no (unknown) (unknown) Lorazepam 0 mg (units (unknown) date) 07/13/22 06:40 unknown) 07/13/22 10:15 (unknown) (no (unknown) (unknown) Lorazepam 2 Mg/Ml (units (unknown) date) Inj IV 2 mg unknown) (unknown) (no (unknown) (unknown) Lymph # (Auto) (units (unknown) date) 1200 unknown) (unknown) (no (unknown) (unknown) Lymph # (Auto) (units (unknown) date) 1700 unknown) (unknown) (no (unknown) (unknown) Lymph # (Auto) (units (unknown) date) unknown) (unknown) (no (unknown) (unknown) Lymph % (Auto) (units (unknown) date) 36.8 unknown) (unknown) (no (unknown) (unknown) Lymph % (Auto) (units (unknown) date) 50.6 H unknown) (unknown) (no (unknown) (unknown) Lymph % (Auto) (units (unknown) date) unknown) (unknown) (no (unknown) (unknown) MCH 26.0 (units (unkno wn) date) unknown) (unknown) (no (unknown) (unknown) MCH 26.3 (units (unkno wn) date) unknown) (unknown) (no (unknown) (unknown) MCH (units (unkno wn) date) unknown) (unknown) (no (unknown) (unknown) MCHC 32.7 (units (unkn own) date) unknown) (unknown) (no (unknown) (unknown) MCHC 34.0 (units (unkn own) date) unknown) (unknown) (no (unknown) (unknown) MCHC (units (unkno wn) date) unknown) (unknown) (no (unknown) (unknown) MCV 77.5 L (units (unk nown) date) unknown) (unknown) (no (unknown) (unknown) MCV 79.5 L (units (unk nown) date) unknown) (unknown) (no (unknown) (unknown) MCV (units (unkno wn) date) unknown) (unknown) (no (unknown) (unknown) Magnesium 1.4 L (units (unknown) date) unknown) (unknown) (no (unknown) (unknown) Magnesium (units (unkn own) date) unknown) (unknown) (no (unknown) (unknown) Medical History (units (unknown) date) (Updated 07/13/22 @ unknown) 11:47 by Gerardo Mccormick MD) (unknown) (no (unknown) (unknown) Medications: (units (u nknown) date) unknown) (unknown) (no (unknown) (unknown) Menometrorrhagia (units (unknown) date) unknown) (unknown) (no (unknown) (unknown) Yates # (Auto) 100 (units (unknown) date) unknown) (unknown) (no (unknown) (unknown) Yates # (Auto) 200 (units (unknown) date) unknown) (unknown) (no (unknown) (unknown) Yates # (Auto) (units ( unknown) date) unknown) (unknown) (no (unknown) (unknown) Yates % (Auto) 2.7 (units (unknown) date) L unknown) (unknown) (no (unknown) (unknown) Yates % (Auto) 6.4 (units (unknown) date) unknown) (unknown) (no (unknown) (unknown) Yates % (Auto) (units ( unknown) date) unknown) (unknown) (no (unknown) (unknown) Mother Diabetes (units (unknown) date) mellitus unknown) (unknown) (no (unknown) (unknown) Moving all 4 (units (u nknown) date) extremities unknown) spontaneously (unknown) (no (unknown) (unknown) Multivitamin 1 (units (unknown) date) Tablet PO 1 tab unknown) (unknown) (no (unknown) (unknown) Multivitamins 1 (units (unknown) date) tab 07/13/22 09:00 unknown) 07/13/22 09:27 (unknown) (no (unknown) (unknown) Neuro (units (unkno wn) date) unknown) (unknown) (no (unknown) (unknown) Neut # (Auto) 1500 (units (unknown) date) unknown) (unknown) (no (unknown) (unknown) Neut # (Auto) 1800 (units (unknown) date) unknown) (unknown) (no (unknown) (unknown) Neut # (Auto) (units ( unknown) date) unknown) (unknown) (no (unknown) (unknown) Neut % (Auto) 45.5 (units (unknown) date) L unknown) (unknown) (no (unknown) (unknown) Neut % (Auto) 55.8 (units (unknown) date) unknown) (unknown) (no (unknown) (unknown) Neut % (Auto) (units ( unknown) date) unknown) (unknown) (no (unknown) (unknown) Nicotine 14 Patch (units (unknown) date) TOP 14 mg unknown) (unknown) (no (unknown) (unknown) Nicotine 14 mg (units (unknown) date) 07/13/22 09:00 unknown) 07/13/22 09:28 (unknown) (no (unknown) (unknown) Normal Saline 0.9% (units (unknown) date) IV 0 mls/hr unknown) (unknown) (no (unknown) (unknown) Not using (units (unkn own) date) accessory muscle unknown) use (unknown) (no (unknown) (unknown) Obesity (units (unkno wn) date) unknown) (unknown) (no (unknown) (unknown) Objective (units (unkn own) date) unknown) (unknown) (no (unknown) (unknown) Other (units (unkno wn) date) participants/roles: unknown) RN (unknown) (no (unknown) (unknown) Other: (units (unkno wn) date) unknown) (unknown) (no (unknown) (unknown) Overweight (units (unk nown) date) unknown) (unknown) (no (unknown) (unknown) Oxygen Delivery (units (unknown) date) Method Room Air unknown) (unknown) (no (unknown) (unknown) PFSH (units (unkno wn) date) unknown) (unknown) (no (unknown) (unknown) Pantoprazole 40 Mg (units (unknown) date) Vial IV 40 mg unknown) (unknown) (no (unknown) (unknown) Pantoprazole (units (u nknown) date) Sodium 40 mg unknown) 07/13/22 09:00 07/13/22 09:27 (unknown) (no (unknown) (unknown) Patient Location: (units (unknown) date) ICU unknown) (unknown) (no (unknown) (unknown) Patient: (units (unkno wn) date) Sarah Connors unknown) MR#: M (unknown) (no (unknown) (unknown) Plt Count 129 L (units (unknown) date) unknown) (unknown) (no (unknown) (unknown) Plt Count 226 (units ( unknown) date) unknown) (unknown) (no (unknown) (unknown) Plt Count (units (unkn own) date) unknown) (unknown) (no (unknown) (unknown) Potassium 3.7 (units ( unknown) date) unknown) (unknown) (no (unknown) (unknown) Potassium 3.9 (units ( unknown) date) unknown) (unknown) (no (unknown) (unknown) Potassium (units (unkn own) date) unknown) (unknown) (no (unknown) (unknown) Precedex IV 0.2 (units (unknown) date) mcg/kg/hr unknown) (unknown) (no (unknown) (unknown) Problem details: (units (unknown) date) unknown) (unknown) (no (unknown) (unknown) Protocol (units (unkno wn) date) unknown) (unknown) (no (unknown) (unknown) Provider location (units (unknown) date) (State): [place] unknown) (unknown) (no (unknown) (unknown) Provider: Gerardo (units (unknown) date) Jace unknown) (unknown) (no (unknown) (unknown) Pulse Oximetry 100 (units (unknown) date) 100 100 unknown) (unknown) (no (unknown) (unknown) Pulse Oximetry 100 (units (unknown) date) 98 unknown) (unknown) (no (unknown) (unknown) Pulse Oximetry 100 (units (unknown) date) unknown) (unknown) (no (unknown) (unknown) Pulse Oximetry 97 (units (unknown) date) 100 unknown) (unknown) (no (unknown) (unknown) Pulse Oximetry 97 (units (unknown) date) 98 98 unknown) (unknown) (no (unknown) (unknown) Pulse Oximetry 97 (units (unknown) date) 99 unknown) (unknown) (no (unknown) (unknown) Pulse Oximetry 98 (units (unknown) date) 98 unknown) (unknown) (no (unknown) (unknown) Pulse Oximetry 99 (units (unknown) date) unknown) (unknown) (no (unknown) (unknown) Pulse Rate 112 H (units (unknown) date) 125 H 75 unknown) (unknown) (no (unknown) (unknown) Pulse Rate 112 H (units (unknown) date) unknown) (unknown) (no (unknown) (unknown) Pulse Rate 119 H (units (unknown) date) 111 H unknown) (unknown) (no (unknown) (unknown) Pulse Rate 120 H (units (unknown) date) 122 H unknown) (unknown) (no (unknown) (unknown) Pulse Rate 122 H (units (unknown) date) 113 H unknown) (unknown) (no (unknown) (unknown) Pulse Rate 77 98 H (units (unknown) date) unknown) (unknown) (no (unknown) (unknown) Pulse Rate 97 H (units (unknown) date) unknown) (unknown) (no (unknown) (unknown) Pulse Rate 98 H (units (unknown) date) 101 H 109 H unknown) (unknown) (no (unknown) (unknown) Q12H SANDY Infusion (units (unknown) date) unknown) (unknown) (no (unknown) (unknown) Q6H SANDY (units (unkno wn) date) Administration unknown) (unknown) (no (unknown) (unknown) Qualifiers: (units (un known) date) unknown) (unknown) (no (unknown) (unknown) RBC 3.45 L (units (unk nown) date) unknown) (unknown) (no (unknown) (unknown) RBC 4.44 (units (unkno wn) date) unknown) (unknown) (no (unknown) (unknown) RBC (units (unkno wn) date) unknown) (unknown) (no (unknown) (unknown) RDW 17.3 H (units (unk nown) date) unknown) (unknown) (no (unknown) (unknown) RDW (units (unkno wn) date) unknown) (unknown) (no (unknown) (unknown) Respiratory Rate (units (unknown) date) 20 unknown) (unknown) (no (unknown) (unknown) Respiratory Rate (units (unknown) date) 22 unknown) (unknown) (no (unknown) (unknown) Respiratory Rate (units (unknown) date) unknown) (unknown) (no (unknown) (unknown) S/P myringotomy (units (unknown) date) with insertion of unknown) tube (unknown) (no (unknown) (unknown) SARS-CoV-2 (PCR) (units (unknown) date) Negative unknown) (unknown) (no (unknown) (unknown) SARS-CoV-2 (PCR) (units (unknown) date) unknown) (unknown) (no (unknown) (unknown) (spontaneous (units (unknown) date) vaginal delivery) unknown) (-09/05/18) (unknown) (no (unknown) (unknown) Salicylates < 1.0 (units (unknown) date) unknown) (unknown) (no (unknown) (unknown) Salicylates (units (un known) date) unknown) (unknown) (no (unknown) (unknown) Signed By: (units (unk nown) date) unknown) (unknown) (no (unknown) (unknown) Smoker (units (unkno wn) date) unknown) (unknown) (no (unknown) (unknown) Smoking Status: (units (unknown) date) Former smoker unknown) (unknown) (no (unknown) (unknown) Social History (units (unknown) date) (Reviewed 07/12/22 unknown) @ 17:50 by Juliet Paz [facility]) (unknown) (no (unknown) (unknown) Sodium 135 L (units (u nknown) date) unknown) (unknown) (no (unknown) (unknown) Sodium 140 (units (unk nown) date) unknown) (unknown) (no (unknown) (unknown) Sodium Chloride (units (unknown) date) 1,000 mls @ 100 unknown) mls/hr 07/13/22 06:45 07/13/22 10:47 (unknown) (no (unknown) (unknown) Sodium (units (unkno wn) date) unknown) (unknown) (no (unknown) (unknown) Status: Acute (units ( unknown) date) unknown) (unknown) (no (unknown) (unknown) Surgical History (units (unknown) date) (Reviewed 07/13/22 unknown) @ 06:49 by LYUDMILA Borden) (unknown) (no (unknown) (unknown) TITRATE SANDY 2.495 (units (unknown) date) mls/hr unknown) (unknown) (no (unknown) (unknown) TSH 1.24 (units (unkno wn) date) unknown) (unknown) (no (unknown) (unknown) TSH (units (unkno wn) date) unknown) (unknown) (no (unknown) (unknown) Teleintensivist (units (unknown) date) Consult Note unknown) (unknown) (no (unknown) (unknown) Thiamine 100 Mg (units (unknown) date) Tablet PO 07/16/22 unknown) 09:01 100 mg (unknown) (no (unknown) (unknown) Thiamine HCl 100 (units (unknown) date) mg 07/13/22 09:00 unknown) 07/13/22 09:27 (unknown) (no (unknown) (unknown) Time Spent With (units (unknown) date) Patient unknown) (unknown) (no (unknown) (unknown) Total Bilirubin (units (unknown) date) 0.4 unknown) (unknown) (no (unknown) (unknown) Total Bilirubin (units (unknown) date) 0.8 unknown) (unknown) (no (unknown) (unknown) Total Bilirubin (units (unknown) date) unknown) (unknown) (no (unknown) (unknown) Total Protein 6.2 (units (unknown) date) L unknown) (unknown) (no (unknown) (unknown) Total Protein 7.3 (units (unknown) date) unknown) (unknown) (no (unknown) (unknown) Total Protein (units ( unknown) date) unknown) (unknown) (no (unknown) (unknown) Trade Name Freq (units (unknown) date) PRN Reason Stop unknown) Dose Admin (unknown) (no (unknown) (unknown) U Benzodiazepines (units (unknown) date) Scrn Negative unknown) (unknown) (no (unknown) (unknown) U Benzodiazepines (units (unknown) date) Scrn unknown) (unknown) (no (unknown) (unknown) U Marijuana (THC) (units (unknown) date) Screen Negative unknown) (unknown) (no (unknown) (unknown) U Marijuana (THC) (units (unknown) date) Screen unknown) (unknown) (no (unknown) (unknown) U Methamphetamines (units (unknown) date) Scrn Negative unknown) (unknown) (no (unknown) (unknown) U Methamphetamines (units (unknown) date) Scrn unknown) (unknown) (no (unknown) (unknown) U Opiates 300ng/mL (units (unknown) date) cut Negative unknown) (unknown) (no (unknown) (unknown) U Opiates 300ng/mL (units (unknown) date) cut unknown) (unknown) (no (unknown) (unknown) U Tricyclic (units (un known) date) Antidepress unknown) Negative (unknown) (no (unknown) (unknown) U Tricyclic (units (un known) date) Antidepress unknown) (unknown) (no (unknown) (unknown) Ur Amphetamines (units (unknown) date) Screen Negative unknown) (unknown) (no (unknown) (unknown) Ur Amphetamines (units (unknown) date) Screen unknown) (unknown) (no (unknown) (unknown) Ur Barbiturates (units (unknown) date) Screen Negative unknown) (unknown) (no (unknown) (unknown) Ur Barbiturates (units (unknown) date) Screen unknown) (unknown) (no (unknown) (unknown) Ur Culture (units (unk nown) date) Indicated? Specimen unknown) cultured (unknown) (no (unknown) (unknown) Ur Culture (units (unk nown) date) Indicated? unknown) (unknown) (no (unknown) (unknown) Ur MDMA Scrn (units (u nknown) date) (Ecstasy) Negative unknown) (unknown) (no (unknown) (unknown) Ur MDMA Scrn (units (u nknown) date) (Ecstasy) unknown) (unknown) (no (unknown) (unknown) Ur Oxycodone (units (u nknown) date) Screen Negative unknown) (unknown) (no (unknown) (unknown) Ur Oxycodone (units (u nknown) date) Screen unknown) (unknown) (no (unknown) (unknown) Ur Phencyclidine (units (unknown) date) Scrn Negative unknown) (unknown) (no (unknown) (unknown) Ur Phencyclidine (units (unknown) date) Scrn unknown) (unknown) (no (unknown) (unknown) Ur Squamous Epith (units (unknown) date) Cells 1-5 /hpf unknown) (unknown) (no (unknown) (unknown) Ur Squamous Epith (units (unknown) date) Cells unknown) (unknown) (no (unknown) (unknown) Urine Bacteria (units (unknown) date) Many (>30) H unknown) (unknown) (no (unknown) (unknown) Urine Bacteria (units (unknown) date) unknown) (unknown) (no (unknown) (unknown) Urine Cocaine (units ( unknown) date) Screen Negative unknown) (unknown) (no (unknown) (unknown) Urine Cocaine (units ( unknown) date) Screen unknown) (unknown) (no (unknown) (unknown) Urine Methadone (units (unknown) date) Screen Negative unknown) (unknown) (no (unknown) (unknown) Urine Methadone (units (unknown) date) Screen unknown) (unknown) (no (unknown) (unknown) Urine RBC 1-5/hpf (units (unknown) date) unknown) (unknown) (no (unknown) (unknown) Urine RBC (units (unkn own) date) unknown) (unknown) (no (unknown) (unknown) Urine WBC 1-5/hpf (units (unknown) date) unknown) (unknown) (no (unknown) (unknown) Urine WBC (units (unkn own) date) unknown) (unknown) (no (unknown) (unknown) Visit Medications (units (unknown) date) (administered) unknown) (unknown) (no (unknown) (unknown) Vital Signs (units (un known) date) unknown) (unknown) (no (unknown) (unknown) WBC 3.3 L (units (unkn own) date) unknown) (unknown) (no (unknown) (unknown) WBC (units (unkno wn) date) unknown) (unknown) (no (unknown) (unknown) [Embedded Image (units (unknown) date) Not Available] unknown) (unknown) (no (unknown) (unknown) [Rx Confirmed (units ( unknown) date) 07/03/20] unknown) (unknown) (no (unknown) (unknown) [Rx] (units (unkno wn) date) unknown) (unknown) (no (unknown) (unknown) acetaminophen 325 (units (unknown) date) mg tablet (Tylenol) unknown) 325 mg PO Q6H PRN pain #20 tabs 02/05/20 (unknown) (no (unknown) (unknown) alcohol intake: (units (unknown) date) former unknown) (unknown) (no (unknown) (unknown) caps 02/05/20 [Rx (units (unknown) date) Confirmed 07/03/20] unknown) (unknown) (no (unknown) (unknown) current (units (unkno wn) date) occupational unknown) exposures/hazards: Yes (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 with Pandemic ) (unknown) (no (unknown) (unknown) cystitis without (units (unknown) date) hematuria unknown) (unknown) (no (unknown) (unknown) dexmedeTOMIDine in (units (unknown) date) 0.9 % NaCL 400 mcg unknown) in 100 mls @ 2.495 mls/hr 07/13/22 11:15 (unknown) (no (unknown) (unknown) diphenhydramine (units (unknown) date) HCl 25 mg capsule unknown) (Benadryl) 25 mg PO BEDTIME PRN insomnia #20 (unknown) (no (unknown) (unknown) docusate sodium (units (unknown) date) 100 mg capsule unknown) (Colace) 100 mg PO BID #30 caps (unknown) (no (unknown) (unknown) education level: (units (unknown) date) college unknown) (unknown) (no (unknown) (unknown) renee/zoroastrianism: (units (unknown) date) Buddhist unknown) (unknown) (no (unknown) (unknown) following commands (units (unknown) date) unknown) (unknown) (no (unknown) (unknown) household members: (units (unknown) date) children unknown) (unknown) (no (unknown) (unknown) ibuprofen 600 mg (units (unknown) date) tablet 600 mg PO unknown) Q6HR PRN Pain, Mild (1-3) #30 tabs 07/04/20 (unknown) (no (unknown) (unknown) marital status: (units (unknown) date) unknown) (unknown) (no (unknown) (unknown) number of (units (unkn own) date) children: 1 unknown) (unknown) (no (unknown) (unknown) occupational (units (u nknown) date) status: employed unknown) (unknown) (no (unknown) (unknown) ondansetron 4 mg (units (unknown) date) disintegrating unknown) tablet 4 mg PO Q6H PRN nausea and vomiting #14 (unknown) (no (unknown) (unknown) ondansetron 4 mg (units (unknown) date) disintegrating unknown) tablet 4 mg PO Q8H PRN nausea and vomiting #20 (unknown) (no (unknown) (unknown) ondansetron 4 mg (units (unknown) date) disintegrating unknown) tablet 4 mg PO Q8H PRN nausea and vomiting #30 (unknown) (no (unknown) (unknown) prenat.vits,otis,mi (units (unknown) date) [id number] 1 tab unknown) PO DAILY 12/30/19 [History Confirmed (unknown) (no (unknown) (unknown) second hand (units (un known) date) exposure: No unknown) (growing up as a child - not currently) (unknown) (no (unknown) (unknown) special renee (units ( unknown) date) needs: No unknown) (unknown) (no (unknown) (unknown) substance use (units ( unknown) date) type: does not use unknown) (unknown) (no (unknown) (unknown) tabs 06/12/22 [Rx] (units (unknown) date) unknown) (unknown) (no (unknown) (unknown) tabs 01/01/20 [Rx (units (unknown) date) Confirmed 07/03/20] unknown) (unknown) (no (unknown) (unknown) tabs 02/05/20 [Rx (units (unknown) date) Confirmed 07/03/20] unknown) (unknown) (no (unknown) (unknown) today; this time (units (unknown) date) is exclusive of unknown) procedural time. (unknown) (no (unknown) (unknown) tramadol 50 mg (units (unknown) date) tablet 50 mg PO Q6H unknown) PRN pain #10 tabs 06/12/22 [Rx] Result panel [id number] (unknown) (no (unknown) (unknown) (no value) (units (unk nown) date) unknown) (unknown) (no (unknown) (unknown) (1) Alcohol (units (un known) date) withdrawal unknown) delirium, acute, hyperactive: (unknown) (no (unknown) (unknown) (2) Alcohol use (units (unknown) date) disorder: unknown) (unknown) (no (unknown) (unknown) (3) Acute (units (unkn own) date) cystitis: unknown) (unknown) (no (unknown) (unknown) (past 8 hours): (units (unknown) date) unknown) (unknown) (no (unknown) (unknown) 0.2 MCG/KG/HR (units ( unknown) date) unknown) (unknown) (no (unknown) (unknown) [id number] (units (unkn own) date) unknown) (unknown) (no (unknown) (unknown) 07/03/20] (units (unkn own) date) unknown) (unknown) (no (unknown) (unknown) 07/12/22 07/12/22 (units (unknown) date) 07/12/22 unknown) (unknown) (no (unknown) (unknown) 07/13/22 07/13/22 (units (unknown) date) unknown) (unknown) (no (unknown) (unknown) 07/13/22 08:50 (units (unknown) date) unknown) (unknown) (no (unknown) (unknown) 07/13/22 11:13 (units (unknown) date) unknown) (unknown) (no (unknown) (unknown) 07/13/22 (units (unkno wn) date) unknown) (unknown) (no (unknown) (unknown) 04:00 07/13/22 (units (unknown) date) unknown) (unknown) (no (unknown) (unknown) 04:30 07/13/22 (units (unknown) date) unknown) (unknown) (no (unknown) (unknown) 05:00 (units (unkno wn) date) unknown) (unknown) (no (unknown) (unknown) 05:30 07/13/22 (units (unknown) date) unknown) (unknown) (no (unknown) (unknown) 05:54 07/13/22 (units (unknown) date) unknown) (unknown) (no (unknown) (unknown) 05:54 (units (unkno wn) date) unknown) (unknown) (no (unknown) (unknown) 06:00 07/13/22 (units (unknown) date) unknown) (unknown) (no (unknown) (unknown) 06:39 (units (unkno wn) date) unknown) (unknown) (no (unknown) (unknown) 06:55 07/13/22 (units (unknown) date) unknown) (unknown) (no (unknown) (unknown) 07:04 07/13/22 (units (unknown) date) unknown) (unknown) (no (unknown) (unknown) 07:04 (units (unkno wn) date) unknown) (unknown) (no (unknown) (unknown) 07:33 07/13/22 (units (unknown) date) unknown) (unknown) (no (unknown) (unknown) 07:34 07/13/22 (units (unknown) date) unknown) (unknown) (no (unknown) (unknown) 07:34 (units (unkno wn) date) unknown) (unknown) (no (unknown) (unknown) 08:00 07/13/22 (units (unknown) date) unknown) (unknown) (no (unknown) (unknown) 08:33 (units (unkno wn) date) unknown) (unknown) (no (unknown) (unknown) 08:50 08:50 (units (un known) date) unknown) (unknown) (no (unknown) (unknown) 02/05/20 [Rx (units (u nknown) date) Confirmed 07/03/20] unknown) (unknown) (no (unknown) (unknown) 09:00 07/13/22 (units (unknown) date) unknown) (unknown) (no (unknown) (unknown) 09:46 (units (unkno wn) date) unknown) (unknown) (no (unknown) (unknown) 09:47 07/13/22 (units (unknown) date) unknown) (unknown) (no (unknown) (unknown) 16:32 16:32 16:32 (units (unknown) date) unknown) (unknown) (no (unknown) (unknown) 19:15 19:15 19:15 (units (unknown) date) unknown) (unknown) (no (unknown) (unknown) 65, urinalysis (units (unknown) date) indicated many unknown) bacteria. As per the bedside nurse, patient (unknown) (no (unknown) (unknown) 97% on room air. (units (unknown) date) She weighs 49.8 kg unknown) with a BMI of 20.1. WBC is 3.3, hemoglobin (unknown) (no (unknown) (unknown) ALT 19 (units (unkno wn) date) unknown) (unknown) (no (unknown) (unknown) ALT 21 (units (unkno wn) date) unknown) (unknown) (no (unknown) (unknown) ALT (units (unkno wn) date) unknown) (unknown) (no (unknown) (unknown) AST 52 H (units (unkno wn) date) unknown) (unknown) (no (unknown) (unknown) AST 67 H (units (unkno wn) date) unknown) (unknown) (no (unknown) (unknown) AST (units (unkno wn) date) unknown) (unknown) (no (unknown) (unknown) Acetaminophen < 10 (units (unknown) date) unknown) (unknown) (no (unknown) (unknown) Acetaminophen (units ( unknown) date) unknown) (unknown) (no (unknown) (unknown) Administration (units (unknown) date) unknown) (unknown) (no (unknown) (unknown) Age/Sex: 31 / F (units (unknown) date) unknown) (unknown) (no (unknown) (unknown) Albumin 3.5 (units (un known) date) unknown) (unknown) (no (unknown) (unknown) Albumin 4.3 (units (un known) date) unknown) (unknown) (no (unknown) (unknown) Albumin (units (unkno wn) date) unknown) (unknown) (no (unknown) (unknown) Albumin/Globulin (units (unknown) date) Ratio 1.3 unknown) (unknown) (no (unknown) (unknown) Albumin/Globulin (units (unknown) date) Ratio 1.4 unknown) (unknown) (no (unknown) (unknown) Albumin/Globulin (units (unknown) date) Ratio unknown) (unknown) (no (unknown) (unknown) Alcohol Withdrawal (units (unknown) date) unknown) (unknown) (no (unknown) (unknown) Alcohol withdrawal (units (unknown) date) delirium, acute, unknown) hyperactive (unknown) (no (unknown) (unknown) Alcoholism (units (unk nown) date) unknown) (unknown) (no (unknown) (unknown) Alkaline (units (unkno wn) date) Phosphatase 75 unknown) (unknown) (no (unknown) (unknown) Alkaline (units (unkno wn) date) Phosphatase 98 unknown) (unknown) (no (unknown) (unknown) Alkaline (units (unkno wn) date) Phosphatase unknown) (unknown) (no (unknown) (unknown) Anemia (-2018) (units (unknown) date) unknown) (unknown) (no (unknown) (unknown) Assessment + Plan (units (unknown) date) unknown) (unknown) (no (unknown) (unknown) Assessment and (units (unknown) date) plan unknown) (unknown) (no (unknown) (unknown) Awake, oriented x (units (unknown) date) 3, severely unknown) confused, intermittently agitated/restless but (unknown) (no (unknown) (unknown) BUN 11 (units (unkno wn) date) unknown) (unknown) (no (unknown) (unknown) BUN 9 (units (unkno wn) date) unknown) (unknown) (no (unknown) (unknown) BUN (units (unkno wn) date) unknown) (unknown) (no (unknown) (unknown) BUN/Creatinine (units (unknown) date) Ratio 11.0 unknown) (unknown) (no (unknown) (unknown) BUN/Creatinine (units (unknown) date) Ratio 16.4 unknown) (unknown) (no (unknown) (unknown) BUN/Creatinine (units (unknown) date) Ratio unknown) (unknown) (no (unknown) (unknown) Baso # (Auto) 0 (units (unknown) date) unknown) (unknown) (no (unknown) (unknown) Baso # (Auto) (units ( unknown) date) unknown) (unknown) (no (unknown) (unknown) Baso % (Auto) 0.7 (units (unknown) date) unknown) (unknown) (no (unknown) (unknown) Baso % (Auto) 0.9 (units (unknown) date) unknown) (unknown) (no (unknown) (unknown) Baso % (Auto) (units ( unknown) date) unknown) (unknown) (no (unknown) (unknown) Blood Pressure (units (unknown) date) 104/59 L 123/58 L unknown) (unknown) (no (unknown) (unknown) Blood Pressure (units (unknown) date) 111/59 L unknown) (unknown) (no (unknown) (unknown) Blood Pressure (units (unknown) date) 116/75 116/65 unknown) (unknown) (no (unknown) (unknown) Blood Pressure (units (unknown) date) 93/54 L unknown) (unknown) (no (unknown) (unknown) Blood Pressure (units (unknown) date) 99/52 L unknown) (unknown) (no (unknown) (unknown) Blood Pressure (units (unknown) date) unknown) (unknown) (no (unknown) (unknown) CIWAPRN PRN (units (un known) date) Administration unknown) (unknown) (no (unknown) (unknown) CONT SANDY Infusion (units (unknown) date) unknown) (unknown) (no (unknown) (unknown) Calcium 8.0 L (units ( unknown) date) unknown) (unknown) (no (unknown) (unknown) Calcium 8.1 L (units ( unknown) date) unknown) (unknown) (no (unknown) (unknown) Calcium (units (unkno wn) date) unknown) (unknown) (no (unknown) (unknown) Carbon Dioxide 23 (units (unknown) date) unknown) (unknown) (no (unknown) (unknown) Carbon Dioxide 28 (units (unknown) date) unknown) (unknown) (no (unknown) (unknown) Carbon Dioxide (units (unknown) date) unknown) (unknown) (no (unknown) (unknown) Cardio (units (unkno wn) date) unknown) (unknown) (no (unknown) (unknown) Chest (units (unkno wn) date) unknown) (unknown) (no (unknown) (unknown) Chief complaint: (units (unknown) date) Acute alcohol unknown) withdrawal (unknown) (no (unknown) (unknown) Chlordiazepoxide (units (unknown) date) 25 Mg Capsule PO 50 unknown) mg (unknown) (no (unknown) (unknown) Chlordiazepoxide (units (unknown) date) HCl 50 mg 07/13/22 unknown) 09:10 07/13/22 09:45 (unknown) (no (unknown) (unknown) Chloride 100 (units (u nknown) date) unknown) (unknown) (no (unknown) (unknown) Chloride 104 (units (u nknown) date) unknown) (unknown) (no (unknown) (unknown) Chloride (units (unkno wn) date) unknown) (unknown) (no (unknown) (unknown) Cipro IV Infused (units (unknown) date) unknown) (unknown) (no (unknown) (unknown) Ciprofloxacin 400 (units (unknown) date) mg in 200 mls @ 200 unknown) mls/hr 07/13/22 08:00 07/13/22 09:21 (unknown) (no (unknown) (unknown) Consent obtained (units (unknown) date) for unknown) 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: Yes (unknown) (no (unknown) (unknown) Const (units (unkno wn) date) unknown) (unknown) (no (unknown) (unknown) Consult details (units (unknown) date) unknown) (unknown) (no (unknown) (unknown) Creatinine 0.67 (units (unknown) date) unknown) (unknown) (no (unknown) (unknown) Creatinine 0.82 (units (unknown) date) unknown) (unknown) (no (unknown) (unknown) Creatinine (units (unk nown) date) unknown) (unknown) (no (unknown) (unknown) Critical Care (units ( unknown) date) time: unknown) (unknown) (no (unknown) (unknown) Current (units (unkno wn) date) Medications unknown) (unknown) (no (unknown) (unknown) DAILY SANDY (units (unkn own) date) Administration unknown) (unknown) (no (unknown) (unknown) : 1990 (units (unknown) date) Acct:[id number] unknown) (unknown) (no (unknown) (unknown) Date of Service: (units (unknown) date) 07/13/22 unknown) (unknown) (no (unknown) (unknown) Enoxaparin 40 (units ( unknown) date) Mg/0.4 Ml Syringe unknown) SUBCUT 40 mg (unknown) (no (unknown) (unknown) Enoxaparin Sodium (units (unknown) date) 40 mg 07/13/22 unknown) 09:00 07/13/22 09:28 (unknown) (no (unknown) (unknown) Eos # (Auto) 0 (units (unknown) date) unknown) (unknown) (no (unknown) (unknown) Eos # (Auto) (units (u nknown) date) unknown) (unknown) (no (unknown) (unknown) Eos % (Auto) 0.3 L (units (unknown) date) unknown) (unknown) (no (unknown) (unknown) Eos % (Auto) (units (u nknown) date) unknown) (unknown) (no (unknown) (unknown) Estimated GFR > 60 (units (unknown) date) unknown) (unknown) (no (unknown) (unknown) Estimated GFR (units ( unknown) date) unknown) (unknown) (no (unknown) (unknown) Ethyl Alcohol 338 (units (unknown) date) H unknown) (unknown) (no (unknown) (unknown) Ethyl Alcohol (units ( unknown) date) unknown) (unknown) (no (unknown) (unknown) Exam (units (unkno wn) date) unknown) (unknown) (no (unknown) (unknown) Family History (units (unknown) date) (Reviewed 07/13/22 unknown) @ 06:49 by LYUDMILA Borden) (unknown) (no (unknown) (unknown) Family/Other (units (u nknown) date) Alcoholism unknown) (unknown) (no (unknown) (unknown) Family/Other (units (u nknown) date) Diabetes mellitus unknown) (unknown) (no (unknown) (unknown) Father Alcoholism (units (unknown) date) unknown) (unknown) (no (unknown) (unknown) Folic Acid 1 Mg (units (unknown) date) Tablet PO 1 mg unknown) (unknown) (no (unknown) (unknown) Folic Acid 1 mg (units (unknown) date) 07/13/22 09:00 unknown) 07/13/22 09:27 (unknown) (no (unknown) (unknown) Free T4 0.93 (units (u nknown) date) unknown) (unknown) (no (unknown) (unknown) Free T4 (units (unkno wn) date) unknown) (unknown) (no (unknown) (unknown) Generic Name Dose (units (unknown) date) Route Start Last unknown) Admin (unknown) (no (unknown) (unknown) Globulin 2.7 (units (u nknown) date) unknown) (unknown) (no (unknown) (unknown) Globulin 3.0 (units (u nknown) date) unknown) (unknown) (no (unknown) (unknown) Globulin (units (unkno wn) date) unknown) (unknown) (no (unknown) (unknown) Glucose 111 H (units ( unknown) date) unknown) (unknown) (no (unknown) (unknown) Glucose 138 H (units ( unknown) date) unknown) (unknown) (no (unknown) (unknown) Glucose (units (unkno wn) date) unknown) (unknown) (no [...] extraction () unknown) (unknown) (no (unknown) (unknown) Hct 26.8 L (units (unk nown) date) unknown) (unknown) (no (unknown) (unknown) Hct 35.3 L (units (unk nown) date) unknown) (unknown) (no (unknown) (unknown) Hct (units (unkno wn) date) unknown) (unknown) (no (unknown) (unknown) Hematuria (units (unkn own) date) presence: without unknown) hematuria Qualified Code(s): N30.00 - Acute (unknown) (no (unknown) (unknown) Hgb 11.5 L (units (unk nown) date) unknown) (unknown) (no (unknown) (unknown) Hgb 9.1 L (units (unkn own) date) unknown) (unknown) (no (unknown) (unknown) Hgb (units (unkno wn) date) unknown) (unknown) (no (unknown) (unknown) History of Present (units (unknown) date) Illness unknown) (unknown) (no (unknown) (unknown) Home Medications (units (unknown) date) unknown) (unknown) (no (unknown) (unknown) I spent a total of (units (unknown) date) [] minutes of unknown) critical care time on this patient's care (unknown) (no (unknown) (unknown) In Sinus (units (unkno wn) date) Tachycardia unknown) (unknown) (no (unknown) (unknown) 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 unknown) (unknown) (no (unknown) (unknown) Insomnia (units (unkno wn) date) unknown) (unknown) (no (unknown) (unknown) [facility] (units (unknown) date) [address] unknown) [place] [address] (unknown) (no (unknown) (unknown) May 2022 for (units (unknown) date) similar symptoms unknown) including most recent visit with blood alcohol (unknown) (no (unknown) (unknown) Laboratory Results (units (unknown) date) - last 24 hr unknown) (unknown) (no (unknown) (unknown) Labs (units (unkno wn) date) unknown) (unknown) (no (unknown) (unknown) Labs: (units (unkno wn) date) unknown) (unknown) (no (unknown) (unknown) Lorazepam 0 mg (units (unknown) date) 07/13/22 06:40 unknown) 07/13/22 10:15 (unknown) (no (unknown) (unknown) Lorazepam 2 Mg/Ml (units (unknown) date) Inj IV 2 mg unknown) (unknown) (no (unknown) (unknown) Lymph # (Auto) (units (unknown) date) 1200 unknown) (unknown) (no (unknown) (unknown) Lymph # (Auto) (units (unknown) date) 1700 unknown) (unknown) (no (unknown) (unknown) Lymph # (Auto) (units (unknown) date) unknown) (unknown) (no (unknown) (unknown) Lymph % (Auto) (units (unknown) date) 36.8 unknown) (unknown) (no (unknown) (unknown) Lymph % (Auto) (units (unknown) date) 50.6 H unknown) (unknown) (no (unknown) (unknown) Lymph % (Auto) (units (unknown) date) unknown) (unknown) (no (unknown) (unknown) MCH 26.0 (units (unkno wn) date) unknown) (unknown) (no (unknown) (unknown) MCH 26.3 (units (unkno wn) date) unknown) (unknown) (no (unknown) (unknown) MCH (units (unkno wn) date) unknown) (unknown) (no (unknown) (unknown) MCHC 32.7 (units (unkn own) date) unknown) (unknown) (no (unknown) (unknown) MCHC 34.0 (units (unkn own) date) unknown) (unknown) (no (unknown) (unknown) MCHC (units (unkno wn) date) unknown) (unknown) (no (unknown) (unknown) MCV 77.5 L (units (unk nown) date) unknown) (unknown) (no (unknown) (unknown) MCV 79.5 L (units (unk nown) date) unknown) (unknown) (no (unknown) (unknown) MCV (units (unkno wn) date) unknown) (unknown) (no (unknown) (unknown) Magnesium 1.4 L (units (unknown) date) unknown) (unknown) (no (unknown) (unknown) Magnesium (units (unkn own) date) unknown) (unknown) (no (unknown) (unknown) Medical History (units (unknown) date) (Updated 07/13/22 @ unknown) 11:47 by Gerardo Mccormick MD) (unknown) (no (unknown) (unknown) Medications: (units (u nknown) date) unknown) (unknown) (no (unknown) (unknown) Menometrorrhagia (units (unknown) date) unknown) (unknown) (no (unknown) (unknown) Yates # (Auto) 100 (units (unknown) date) unknown) (unknown) (no (unknown) (unknown) Yates # (Auto) 200 (units (unknown) date) unknown) (unknown) (no (unknown) (unknown) Yates # (Auto) (units ( unknown) date) unknown) (unknown) (no (unknown) (unknown) Yates % (Auto) 2.7 (units (unknown) date) L unknown) (unknown) (no (unknown) (unknown) Yates % (Auto) 6.4 (units (unknown) date) unknown) (unknown) (no (unknown) (unknown) Yates % (Auto) (units ( unknown) date) unknown) (unknown) (no (unknown) (unknown) Mother Diabetes (units (unknown) date) mellitus unknown) (unknown) (no (unknown) (unknown) Moving all 4 (units (u nknown) date) extremities unknown) spontaneously (unknown) (no (unknown) (unknown) Multivitamin 1 (units (unknown) date) Tablet PO 1 tab unknown) (unknown) (no (unknown) (unknown) Multivitamins 1 (units (unknown) date) tab 07/13/22 09:00 unknown) 07/13/22 09:27 (unknown) (no (unknown) (unknown) Narrative: (units (unk nown) date) unknown) (unknown) (no (unknown) (unknown) Neuro (units (unkno wn) date) unknown) (unknown) (no (unknown) (unknown) Neut # (Auto) 1500 (units (unknown) date) unknown) (unknown) (no (unknown) (unknown) Neut # (Auto) 1800 (units (unknown) date) unknown) (unknown) (no (unknown) (unknown) Neut # (Auto) (units ( unknown) date) unknown) (unknown) (no (unknown) (unknown) Neut % (Auto) 45.5 (units (unknown) date) L unknown) (unknown) (no (unknown) (unknown) Neut % (Auto) 55.8 (units (unknown) date) unknown) (unknown) (no (unknown) (unknown) Neut % (Auto) (units ( unknown) date) unknown) (unknown) (no (unknown) (unknown) Nicotine 14 Patch (units (unknown) date) TOP 14 mg unknown) (unknown) (no (unknown) (unknown) Nicotine 14 mg (units (unknown) date) 07/13/22 09:00 unknown) 07/13/22 09:28 (unknown) (no (unknown) (unknown) Normal Saline 0.9% (units (unknown) date) IV 0 mls/hr unknown) (unknown) (no (unknown) (unknown) Not using (units (unkn own) date) accessory muscle unknown) use (unknown) (no (unknown) (unknown) Obesity (units (unkno wn) date) unknown) (unknown) (no (unknown) (unknown) Objective (units (unkn own) date) unknown) (unknown) (no (unknown) (unknown) Other (units (unkno wn) date) participants/roles: unknown) RN (unknown) (no (unknown) (unknown) Other: (units (unkno wn) date) unknown) (unknown) (no (unknown) (unknown) Overweight (units (unk nown) date) unknown) (unknown) (no (unknown) (unknown) Oxygen Delivery (units (unknown) date) Method Room Air unknown) (unknown) (no (unknown) (unknown) PFSH (units (unkno wn) date) unknown) (unknown) (no (unknown) (unknown) Pantoprazole 40 Mg (units (unknown) date) Vial IV 40 mg unknown) (unknown) (no (unknown) (unknown) Pantoprazole (units (u nknown) date) Sodium 40 mg unknown) 07/13/22 09:00 07/13/22 09:27 (unknown) (no (unknown) (unknown) Patient Location: (units (unknown) date) ICU unknown) (unknown) (no (unknown) (unknown) Patient stated that (units (unknown) date) she used to be unknown) sober for about 18 months in the past but had (unknown) (no (unknown) (unknown) Patient: (units (unkno wn) date) Sarah Connors Emilie unknown) MR#: M (unknown) (no (unknown) (unknown) Plt Count 129 L (units (unknown) date) unknown) (unknown) (no (unknown) (unknown) Plt Count 226 (units ( unknown) date) unknown) (unknown) (no (unknown) (unknown) Plt Count (units (unkn own) date) unknown) (unknown) (no (unknown) (unknown) Potassium 3.7 (units ( unknown) date) unknown) (unknown) (no (unknown) (unknown) Potassium 3.9 (units ( unknown) date) unknown) (unknown) (no (unknown) (unknown) Potassium (units (unkn own) date) unknown) (unknown) (no (unknown) (unknown) Precedex IV 0.2 (units (unknown) date) mcg/kg/hr unknown) (unknown) (no (unknown) (unknown) Problem details: (units (unknown) date) unknown) (unknown) (no (unknown) (unknown) Protocol (units (unkno wn) date) unknown) (unknown) (no (unknown) (unknown) Provider location (units (unknown) date) (State): [place] unknown) (unknown) (no (unknown) (unknown) Provider: Gerardo (units (unknown) date) Jace unknown) (unknown) (no (unknown) (unknown) Pulse Oximetry 100 (units (unknown) date) 100 100 unknown) (unknown) (no (unknown) (unknown) Pulse Oximetry 100 (units (unknown) date) 98 unknown) (unknown) (no (unknown) (unknown) Pulse Oximetry 100 (units (unknown) date) unknown) (unknown) (no (unknown) (unknown) Pulse Oximetry 97 (units (unknown) date) 100 unknown) (unknown) (no (unknown) (unknown) Pulse Oximetry 97 (units (unknown) date) 98 98 unknown) (unknown) (no (unknown) (unknown) Pulse Oximetry 97 (units (unknown) date) 99 unknown) (unknown) (no (unknown) (unknown) Pulse Oximetry 98 (units (unknown) date) 98 unknown) (unknown) (no (unknown) (unknown) Pulse Oximetry 99 (units (unknown) date) unknown) (unknown) (no (unknown) (unknown) Pulse Rate 112 H (units (unknown) date) 125 H 75 unknown) (unknown) (no (unknown) (unknown) Pulse Rate 112 H (units (unknown) date) unknown) (unknown) (no (unknown) (unknown) Pulse Rate 119 H (units (unknown) date) 111 H unknown) (unknown) (no (unknown) (unknown) Pulse Rate 120 H (units (unknown) date) 122 H unknown) (unknown) (no (unknown) (unknown) Pulse Rate 122 H (units (unknown) date) 113 H unknown) (unknown) (no (unknown) (unknown) Pulse Rate 77 98 H (units (unknown) date) unknown) (unknown) (no (unknown) (unknown) Pulse Rate 97 H (units (unknown) date) unknown) (unknown) (no (unknown) (unknown) Pulse Rate 98 H (units (unknown) date) 101 H 109 H unknown) (unknown) (no (unknown) (unknown) Q12H SANDY Infusion (units (unknown) date) unknown) (unknown) (no (unknown) (unknown) Q6H SANDY (units (unkno wn) date) Administration unknown) (unknown) (no (unknown) (unknown) Qualifiers: (units (un known) date) unknown) (unknown) (no (unknown) (unknown) RBC 3.45 L (units (unk nown) date) unknown) (unknown) (no (unknown) (unknown) RBC 4.44 (units (unkno wn) date) unknown) (unknown) (no (unknown) (unknown) RBC (units (unkno wn) date) unknown) (unknown) (no (unknown) (unknown) RDW 17.3 H (units (unk nown) date) unknown) (unknown) (no (unknown) (unknown) RDW (units (unkno wn) date) unknown) (unknown) (no (unknown) (unknown) Respiratory Rate (units (unknown) date) 20 unknown) (unknown) (no (unknown) (unknown) Respiratory Rate (units (unknown) date) 22 unknown) (unknown) (no (unknown) (unknown) Respiratory Rate (units (unknown) date) unknown) (unknown) (no (unknown) (unknown) S/P myringotomy (units (unknown) date) with insertion of unknown) tube (unknown) (no (unknown) (unknown) SARS-CoV-2 (PCR) (units (unknown) date) Negative unknown) (unknown) (no (unknown) (unknown) SARS-CoV-2 (PCR) (units (unknown) date) unknown) (unknown) (no (unknown) (unknown) (spontaneous (units (unknown) date) vaginal delivery) unknown) (-09/05/18) (unknown) (no (unknown) (unknown) Salicylates < 1.0 (units (unknown) date) unknown) (unknown) (no (unknown) (unknown) Salicylates (units (un known) date) unknown) (unknown) (no (unknown) (unknown) She was also found (units (unknown) date) to have UTI and was unknown) given a dose of oral cephalexin. Her (unknown) (no (unknown) (unknown) Signed By: (units (unk nown) date) unknown) (unknown) (no (unknown) (unknown) Smoker (units (unkno wn) date) unknown) (unknown) (no (unknown) (unknown) Smoking Status: (units (unknown) date) Former smoker unknown) (unknown) (no (unknown) (unknown) Social History (units (unknown) date) (Reviewed 07/12/22 unknown) @ 17:50 by Juliet Paz RECREATION PROGRAMMER) (unknown) (no (unknown) (unknown) Sodium 135 L (units (u nknown) date) unknown) (unknown) (no (unknown) (unknown) Sodium 140 (units (unk nown) date) unknown) (unknown) (no (unknown) (unknown) Sodium Chloride (units (unknown) date) 1,000 mls @ 100 unknown) mls/hr 07/13/22 06:45 07/13/22 10:47 (unknown) (no (unknown) (unknown) Sodium (units (unkno wn) date) unknown) (unknown) (no (unknown) (unknown) Status: Acute (units ( unknown) date) unknown) (unknown) (no (unknown) (unknown) Surgical History (units (unknown) date) (Reviewed 07/13/22 unknown) @ 06:49 by LYUDMILA Borden) (unknown) (no (unknown) (unknown) TITRATE SANDY 2.495 (units (unknown) date) mls/hr unknown) (unknown) (no (unknown) (unknown) TSH 1.24 (units (unkno wn) date) unknown) (unknown) (no (unknown) (unknown) TSH (units (unkno wn) date) unknown) (unknown) (no (unknown) (unknown) Teleintensivist (units (unknown) date) Consult Note unknown) (unknown) (no (unknown) (unknown) Thiamine 100 Mg (units (unknown) date) Tablet PO 07/16/22 unknown) 09:01 100 mg (unknown) (no (unknown) (unknown) Thiamine HCl 100 (units (unknown) date) mg 07/13/22 09:00 unknown) 07/13/22 09:27 (unknown) (no (unknown) (unknown) This is a 31 years (units (unknown) date) old female with unknown) history of alcohol use disorder who presented (unknown) (no (unknown) (unknown) Time Spent With (units (unknown) date) Patient unknown) (unknown) (no (unknown) (unknown) Total Bilirubin (units (unknown) date) 0.4 unknown) (unknown) (no (unknown) (unknown) Total Bilirubin (units (unknown) date) 0.8 unknown) (unknown) (no (unknown) (unknown) Total Bilirubin (units (unknown) date) unknown) (unknown) (no (unknown) (unknown) Total Protein 6.2 (units (unknown) date) L unknown) (unknown) (no (unknown) (unknown) Total Protein 7.3 (units (unknown) date) unknown) (unknown) (no (unknown) (unknown) Total Protein (units ( unknown) date) unknown) (unknown) (no (unknown) (unknown) Trade Name Freq (units (unknown) date) PRN Reason Stop unknown) Dose Admin (unknown) (no (unknown) (unknown) U Benzodiazepines (units (unknown) date) Scrn Negative unknown) (unknown) (no (unknown) (unknown) U Benzodiazepines (units (unknown) date) Scrn unknown) (unknown) (no (unknown) (unknown) U Marijuana (THC) (units (unknown) date) Screen Negative unknown) (unknown) (no (unknown) (unknown) U Marijuana (THC) (units (unknown) date) Screen unknown) (unknown) (no (unknown) (unknown) U Methamphetamines (units (unknown) date) Scrn Negative unknown) (unknown) (no (unknown) (unknown) U Methamphetamines (units (unknown) date) Scrn unknown) (unknown) (no (unknown) (unknown) U Opiates 300ng/mL (units (unknown) date) cut Negative unknown) (unknown) (no (unknown) (unknown) U Opiates 300ng/mL (units (unknown) date) cut unknown) (unknown) (no (unknown) (unknown) U Tricyclic (units (un known) date) Antidepress unknown) Negative (unknown) (no (unknown) (unknown) U Tricyclic (units (un known) date) Antidepress unknown) (unknown) (no (unknown) (unknown) Ur Amphetamines (units (unknown) date) Screen Negative unknown) (unknown) (no (unknown) (unknown) Ur Amphetamines (units (unknown) date) Screen unknown) (unknown) (no (unknown) (unknown) Ur Barbiturates (units (unknown) date) Screen Negative unknown) (unknown) (no (unknown) (unknown) Ur Barbiturates (units (unknown) date) Screen unknown) (unknown) (no (unknown) (unknown) Ur Culture (units (unk nown) date) Indicated? Specimen unknown) cultured (unknown) (no (unknown) (unknown) Ur Culture (units (unk nown) date) Indicated? unknown) (unknown) (no (unknown) (unknown) Ur MDMA Scrn (units (u nknown) date) (Ecstasy) Negative unknown) (unknown) (no (unknown) (unknown) Ur MDMA Scrn (units (u nknown) date) (Ecstasy) unknown) (unknown) (no (unknown) (unknown) Ur Oxycodone (units (u nknown) date) Screen Negative unknown) (unknown) (no (unknown) (unknown) Ur Oxycodone (units (u nknown) date) Screen unknown) (unknown) (no (unknown) (unknown) Ur Phencyclidine (units (unknown) date) Scrn Negative unknown) (unknown) (no (unknown) (unknown) Ur Phencyclidine (units (unknown) date) Scrn unknown) (unknown) (no (unknown) (unknown) Ur Squamous Epith (units (unknown) date) Cells 1-5 /hpf unknown) (unknown) (no (unknown) (unknown) Ur Squamous Epith (units (unknown) date) Cells unknown) (unknown) (no (unknown) (unknown) Urine Bacteria (units (unknown) date) Many (>30) H unknown) (unknown) (no (unknown) (unknown) Urine Bacteria (units (unknown) date) unknown) (unknown) (no (unknown) (unknown) Urine Cocaine (units ( unknown) date) Screen Negative unknown) (unknown) (no (unknown) (unknown) Urine Cocaine (units ( unknown) date) Screen unknown) (unknown) (no (unknown) (unknown) Urine Methadone (units (unknown) date) Screen Negative unknown) (unknown) (no (unknown) (unknown) Urine Methadone (units (unknown) date) Screen unknown) (unknown) (no (unknown) (unknown) Urine RBC 1-5/hpf (units (unknown) date) unknown) (unknown) (no (unknown) (unknown) Urine RBC (units (unkn own) date) unknown) (unknown) (no (unknown) (unknown) Urine WBC 1-5/hpf (units (unknown) date) unknown) (unknown) (no (unknown) (unknown) Urine WBC (units (unkn own) date) unknown) (unknown) (no (unknown) (unknown) Visit Medications (units (unknown) date) (administered) unknown) (unknown) (no (unknown) (unknown) Vital Signs (units (un known) date) unknown) (unknown) (no (unknown) (unknown) WBC 3.3 L (units (unkn own) date) unknown) (unknown) (no (unknown) (unknown) WBC (units (unkno wn) date) unknown) (unknown) (no (unknown) (unknown) [Embedded Image (units (unknown) date) Not Available] unknown) (unknown) (no (unknown) (unknown) [Rx Confirmed (units ( unknown) date) 07/03/20] unknown) (unknown) (no (unknown) (unknown) [Rx] (units (unkno wn) date) unknown) (unknown) (no (unknown) (unknown) acetaminophen 325 (units (unknown) date) mg tablet (Tylenol) unknown) 325 mg PO Q6H PRN pain #20 tabs 02/05/20 (unknown) (no (unknown) (unknown) alcohol intake: (units (unknown) date) former unknown) (unknown) (no (unknown) (unknown) and hematocrit are (units (unknown) date) 11.5 and 35.3 unknown) respectively, glucose is 111, calcium 8.0, AST (unknown) (no (unknown) (unknown) as 750 cc of vodka (units (unknown) date) every day. She has unknown) had several visits to ER department in (unknown) (no (unknown) (unknown) blood pressure (units (unknown) date) 93/54, heart rate unknown) 119, respiratory rate 18, oxygen saturation of (unknown) (no (unknown) (unknown) caps 02/05/20 [Rx (units (unknown) date) Confirmed 07/03/20] unknown) (unknown) (no (unknown) (unknown) current (units (unkno wn) date) occupational unknown) exposures/hazards: Yes (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 with Pandemic ) (unknown) (no (unknown) (unknown) cystitis without (units (unknown) date) hematuria unknown) (unknown) (no (unknown) (unknown) dexmedeTOMIDine in (units (unknown) date) 0.9 % NaCL 400 mcg unknown) in 100 mls @ 2.495 mls/hr 07/13/22 11:15 (unknown) (no (unknown) (unknown) diphenhydramine (units (unknown) date) HCl 25 mg capsule unknown) (Benadryl) 25 mg PO BEDTIME PRN insomnia #20 (unknown) (no (unknown) (unknown) docusate sodium (units (unknown) date) 100 mg capsule unknown) (Colace) 100 mg PO BID #30 caps (unknown) (no (unknown) (unknown) education level: (units (unknown) date) college unknown) (unknown) (no (unknown) (unknown) renee/zoroastrianism: (units (unknown) date) Buddhist unknown) (unknown) (no (unknown) (unknown) following commands (units (unknown) date) unknown) (unknown) (no (unknown) (unknown) household members: (units (unknown) date) children unknown) (unknown) (no (unknown) (unknown) ibuprofen 600 mg (units (unknown) date) tablet 600 mg PO unknown) Q6HR PRN Pain, Mild (1-3) #30 tabs 07/04/20 (unknown) (no (unknown) (unknown) initial work-up (units (unknown) date) was notable for unknown) blood alcohol level of 338. She is afebrile, (unknown) (no (unknown) (unknown) level in 300s. (units (unknown) date) Today, she was unknown) noted to be severely agitated and restless, (unknown) (no (unknown) (unknown) marital status: (units (unknown) date) unknown) (unknown) (no (unknown) (unknown) number of (units (unkn own) date) children: 1 unknown) (unknown) (no (unknown) (unknown) occupational (units (u nknown) date) status: employed unknown) (unknown) (no (unknown) (unknown) ondansetron 4 mg (units (unknown) date) disintegrating unknown) tablet 4 mg PO Q6H PRN nausea and vomiting #14 (unknown) (no (unknown) (unknown) ondansetron 4 mg (units (unknown) date) disintegrating unknown) tablet 4 mg PO Q8H PRN nausea and vomiting #20 (unknown) (no (unknown) (unknown) ondansetron 4 mg (units (unknown) date) disintegrating unknown) tablet 4 mg PO Q8H PRN nausea and vomiting #30 (unknown) (no (unknown) (unknown) prenat.vits,otis,mi (units (unknown) date) [id number]-[id number] 1 tab unknown) PO DAILY 12/30/19 [History Confirmed (unknown) (no (unknown) (unknown) presented to ER (units (unknown) date) asking for help unknown) with rehab but she was deemed to be medically (unknown) (no (unknown) (unknown) received (units (unkno wn) date) phenobarbital 130 unknown) mg IV x1, Librium 50 mg p.o. x1, and Ativan 6 mg IV (unknown) (no (unknown) (unknown) relapsed due to a (units (unknown) date) divorce with her unknown) . She states that she drinks as much (unknown) (no (unknown) (unknown) second hand (units (un known) date) exposure: No unknown) (growing up as a child - not currently) (unknown) (no (unknown) (unknown) special renee (units ( unknown) date) needs: No unknown) (unknown) (no (unknown) (unknown) substance use (units ( unknown) date) type: does not use unknown) (unknown) (no (unknown) (unknown) tabs 06/12/22 [Rx] (units (unknown) date) unknown) (unknown) (no (unknown) (unknown) tabs 01/01/20 [Rx (units (unknown) date) Confirmed 07/03/20] unknown) (unknown) (no (unknown) (unknown) tabs 02/05/20 [Rx (units (unknown) date) Confirmed 07/03/20] unknown) (unknown) (no (unknown) (unknown) to ED with acute (units (unknown) date) alcohol unknown) intoxication with symptoms of alcohol withdrawal. (unknown) (no (unknown) (unknown) today; this time (units (unknown) date) is exclusive of unknown) procedural time. (unknown) (no (unknown) (unknown) tramadol 50 mg (units (unknown) date) tablet 50 mg PO Q6H unknown) PRN pain #10 tabs 06/12/22 [Rx] (unknown) (no (unknown) (unknown) unstable for (units (u nknown) date) transfer to rehab. unknown) Her CIWA score in the ED was as high as 20. (unknown) (no (unknown) (unknown) x1 in the ED. She (units (unknown) date) is now admitted to unknown) ICU on Precedex drip. Result panel [id number] (unknown) (no (unknown) (unknown) (no value) (units (unk nown) date) unknown) (unknown) (no (unknown) (unknown) # CODE STATUS: (units (unknown) date) Full code unknown) (unknown) (no (unknown) (unknown) # Disposition: (units (unknown) date) Admit to ICU. May unknown) downgrade to MedSur telemetry floor if CIWA (unknown) (no (unknown) (unknown) # FEN: Regular (units (unknown) date) diet. C/w IVF (D5 unknown) 1/2 NS@100cc/hr). Aggressively replace Mg, K (unknown) (no (unknown) (unknown) # Glucose: Fairly (units (unknown) date) controlled. BG goal unknown) 120-180 (unknown) (no (unknown) (unknown) # Lines/tubes: PIV (units (unknown) date) unknown) (unknown) (no (unknown) (unknown) # Prophylaxis: (units (unknown) date) Lovenox 40 mg subcu unknown) for DVT prophylaxis, Pepcid for stress ulcer (unknown) (no (unknown) (unknown) (1) Alcohol (units (un known) date) withdrawal unknown) delirium, acute, hyperactive: (unknown) (no (unknown) (unknown) (2) Alcohol use (units (unknown) date) disorder: unknown) (unknown) (no (unknown) (unknown) (3) Acute (units (unkn own) date) cystitis: unknown) (unknown) (no (unknown) (unknown) (past 8 hours): (units (unknown) date) unknown) (unknown) (no (unknown) (unknown) - Agree with rest (units (unknown) date) of the management unknown) per primary team. D/w Primary hospitalist. (unknown) (no (unknown) (unknown) - C/w aspiration (units (unknown) date) and seizure unknown) precautions, Currently NPO due to severe (unknown) (no (unknown) (unknown) - Consult social (units (unknown) date) services to arrange unknown) for appropriate referral for detox program. (unknown) (no (unknown) (unknown) - Continue IV (units ( unknown) date) Ativan 4-10 mg unknown) every 15 min PRN with goal to keep CIWA <8 per (unknown) (no (unknown) (unknown) - Continue IV (units ( unknown) date) antibiotics x 3 unknown) days. Follow up and adjust antibiotics according (unknown) (no (unknown) (unknown) - Continue alcohol (units (unknown) date) withdrawal protocol unknown) including monitoring by CIWA score. C/w (unknown) (no (unknown) (unknown) - Has relapsed and (units (unknown) date) falied rehab. unknown) Consult social media intern to arrange for (unknown) (no (unknown) (unknown) - If unable to (units (unknown) date) keep CIWA less than unknown) 12, may use phenobarbital 130 mg IV/IM as (unknown) (no (unknown) (unknown) - Order US of (units ( unknown) date) abdomen to evaluate unknown) for liver cirrhosis. (unknown) (no (unknown) (unknown) - Received (units (unk nown) date) thiamine 100 mg IV, unknown) total 6 mg of Ativan IV, Librium 50 mg PO, and (unknown) (no (unknown) (unknown) - She is able to (units (unknown) date) protect his airway, unknown) does not need endotracheal intubation at (unknown) (no (unknown) (unknown) - Start Librium 50 (units (unknown) date) mg PO QID if and unknown) when able to tolerate PO meds. (unknown) (no (unknown) (unknown) - Still has room (units (unknown) date) to administer more unknown) BZPs and phenobarbital. Order Phenobarbital (unknown) (no (unknown) (unknown) - Use Precedex gtt (units (unknown) date) only for refractory unknown) DTs despite on aggressive treatment with (unknown) (no (unknown) (unknown) 0.2 MCG/KG/HR (units ( unknown) date) unknown) (unknown) (no (unknown) (unknown) [id number] (units (unkn own) date) unknown) (unknown) (no (unknown) (unknown) 07/03/20] (units (unkn own) date) unknown) (unknown) (no (unknown) (unknown) 07/12/22 07/12/22 (units (unknown) date) 07/12/22 unknown) (unknown) (no (unknown) (unknown) 07/13/22 07/13/22 (units (unknown) date) unknown) (unknown) (no (unknown) (unknown) 07/13/22 08:50 (units (unknown) date) unknown) (unknown) (no (unknown) (unknown) 07/13/22 11:13 (units (unknown) date) unknown) (unknown) (no (unknown) (unknown) 07/13/22 (units (unkno wn) date) unknown) (unknown) (no (unknown) (unknown) 04:00 07/13/22 (units (unknown) date) unknown) (unknown) (no (unknown) (unknown) 04:30 07/13/22 (units (unknown) date) unknown) (unknown) (no (unknown) (unknown) 05:00 (units (unkno wn) date) unknown) (unknown) (no (unknown) (unknown) 05:30 07/13/22 (units (unknown) date) unknown) (unknown) (no (unknown) (unknown) 05:54 07/13/22 (units (unknown) date) unknown) (unknown) (no (unknown) (unknown) 05:54 (units (unkno wn) date) unknown) (unknown) (no (unknown) (unknown) 06:00 07/13/22 (units (unknown) date) unknown) (unknown) (no (unknown) (unknown) 06:39 (units (unkno wn) date) unknown) (unknown) (no (unknown) (unknown) 06:55 07/13/22 (units (unknown) date) unknown) (unknown) (no (unknown) (unknown) 07:04 07/13/22 (units (unknown) date) unknown) (unknown) (no (unknown) (unknown) 07:04 (units (unkno wn) date) unknown) (unknown) (no (unknown) (unknown) 07:33 07/13/22 (units (unknown) date) unknown) (unknown) (no (unknown) (unknown) 07:34 07/13/22 (units (unknown) date) unknown) (unknown) (no (unknown) (unknown) 07:34 (units (unkno wn) date) unknown) (unknown) (no (unknown) (unknown) 08:00 07/13/22 (units (unknown) date) unknown) (unknown) (no (unknown) (unknown) 08:33 (units (unkno wn) date) unknown) (unknown) (no (unknown) (unknown) 08:50 08:50 (units (un known) date) unknown) (unknown) (no (unknown) (unknown) 02/05/20 [Rx (units (u nknown) date) Confirmed 07/03/20] unknown) (unknown) (no (unknown) (unknown) 09:00 07/13/22 (units (unknown) date) unknown) (unknown) (no (unknown) (unknown) 09:46 (units (unkno wn) date) unknown) (unknown) (no (unknown) (unknown) 09:47 07/13/22 (units (unknown) date) unknown) (unknown) (no (unknown) (unknown) 16:32 16:32 16:32 (units (unknown) date) unknown) (unknown) (no (unknown) (unknown) 19:15 19:15 19:15 (units (unknown) date) unknown) (unknown) (no (unknown) (unknown) 60 mg IV BID (units (u nknown) date) scheduled. unknown) (unknown) (no (unknown) (unknown) 67, urinalysis (units (unknown) date) indicated many unknown) bacteria. As per the bedside nurse, patient (unknown) (no (unknown) (unknown) 97% on room air. (units (unknown) date) She weighs 49.8 kg unknown) with a BMI of 20.1. WBC is 3.3, hemoglobin (unknown) (no (unknown) (unknown) ALT 19 (units (unkno wn) date) unknown) (unknown) (no (unknown) (unknown) ALT 21 (units (unkno wn) date) unknown) (unknown) (no (unknown) (unknown) ALT (units (unkno wn) date) unknown) (unknown) (no (unknown) (unknown) AST 52 H (units (unkno wn) date) unknown) (unknown) (no (unknown) (unknown) AST 67 H (units (unkno wn) date) unknown) (unknown) (no (unknown) (unknown) AST (units (unkno wn) date) unknown) (unknown) (no (unknown) (unknown) Acetaminophen < 10 (units (unknown) date) unknown) (unknown) (no (unknown) (unknown) Acetaminophen (units ( unknown) date) unknown) (unknown) (no (unknown) (unknown) Administration (units (unknown) date) unknown) (unknown) (no (unknown) (unknown) Age/Sex: 31 / F (units (unknown) date) unknown) (unknown) (no (unknown) (unknown) Albumin 3.5 (units (un known) date) unknown) (unknown) (no (unknown) (unknown) Albumin 4.3 (units (un known) date) unknown) (unknown) (no (unknown) (unknown) Albumin (units (unkno wn) date) unknown) (unknown) (no (unknown) (unknown) Albumin/Globulin (units (unknown) date) Ratio 1.3 unknown) (unknown) (no (unknown) (unknown) Albumin/Globulin (units (unknown) date) Ratio 1.4 unknown) (unknown) (no (unknown) (unknown) Albumin/Globulin (units (unknown) date) Ratio unknown) (unknown) (no (unknown) (unknown) Alcohol Withdrawal (units (unknown) date) unknown) (unknown) (no (unknown) (unknown) Alcohol withdrawal (units (unknown) date) delirium, acute, unknown) hyperactive (unknown) (no (unknown) (unknown) Alcoholism (units (unk nown) date) unknown) (unknown) (no (unknown) (unknown) Alkaline (units (unkno wn) date) Phosphatase 75 unknown) (unknown) (no (unknown) (unknown) Alkaline (units (unkno wn) date) Phosphatase 98 unknown) (unknown) (no (unknown) (unknown) Alkaline (units (unkno wn) date) Phosphatase unknown) (unknown) (no (unknown) (unknown) Anemia (-2018) (units (unknown) date) unknown) (unknown) (no (unknown) (unknown) Assessment + Plan (units (unknown) date) unknown) (unknown) (no (unknown) (unknown) Assessment and (units (unknown) date) plan unknown) (unknown) (no (unknown) (unknown) Awake, oriented x (units (unknown) date) 3, severely unknown) confused, intermittently agitated/restless but (unknown) (no (unknown) (unknown) BUN 11 (units (unkno wn) date) unknown) (unknown) (no (unknown) (unknown) BUN 9 (units (unkno wn) date) unknown) (unknown) (no (unknown) (unknown) BUN (units (unkno wn) date) unknown) (unknown) (no (unknown) (unknown) BUN/Creatinine (units (unknown) date) Ratio 11.0 unknown) (unknown) (no (unknown) (unknown) BUN/Creatinine (units (unknown) date) Ratio 16.4 unknown) (unknown) (no (unknown) (unknown) BUN/Creatinine (units (unknown) date) Ratio unknown) (unknown) (no (unknown) (unknown) BZPs + phenobarb. (units (unknown) date) Would discourage unknown) the use of Precedex solely for the treatment (unknown) (no (unknown) (unknown) Baso # (Auto) 0 (units (unknown) date) unknown) (unknown) (no (unknown) (unknown) Baso # (Auto) (units ( unknown) date) unknown) (unknown) (no (unknown) (unknown) Baso % (Auto) 0.7 (units (unknown) date) unknown) (unknown) (no (unknown) (unknown) Baso % (Auto) 0.9 (units (unknown) date) unknown) (unknown) (no (unknown) (unknown) Baso % (Auto) (units ( unknown) date) unknown) (unknown) (no (unknown) (unknown) Blood Pressure (units (unknown) date) 104/59 L 123/58 L unknown) (unknown) (no (unknown) (unknown) Blood Pressure (units (unknown) date) 111/59 L unknown) (unknown) (no (unknown) (unknown) Blood Pressure (units (unknown) date) 116/75 116/65 unknown) (unknown) (no (unknown) (unknown) Blood Pressure (units (unknown) date) 93/54 L unknown) (unknown) (no (unknown) (unknown) Blood Pressure (units (unknown) date) 99/52 L unknown) (unknown) (no (unknown) (unknown) Blood Pressure (units (unknown) date) unknown) (unknown) (no (unknown) (unknown) CIWAPRN PRN (units (un known) date) Administration unknown) (unknown) (no (unknown) (unknown) CONT SANDY Infusion (units (unknown) date) unknown) (unknown) (no (unknown) (unknown) Calcium 8.0 L (units ( unknown) date) unknown) (unknown) (no (unknown) (unknown) Calcium 8.1 L (units ( unknown) date) unknown) (unknown) (no (unknown) (unknown) Calcium (units (unkno wn) date) unknown) (unknown) (no (unknown) (unknown) Carbon Dioxide 23 (units (unknown) date) unknown) (unknown) (no (unknown) (unknown) Carbon Dioxide 28 (units (unknown) date) unknown) (unknown) (no (unknown) (unknown) Carbon Dioxide (units (unknown) date) unknown) (unknown) (no (unknown) (unknown) Cardio (units (unkno wn) date) unknown) (unknown) (no (unknown) (unknown) Chest (units (unkno wn) date) unknown) (unknown) (no (unknown) (unknown) Chief complaint: (units (unknown) date) Acute alcohol unknown) withdrawal (unknown) (no (unknown) (unknown) Chlordiazepoxide (units (unknown) date) 25 Mg Capsule PO 50 unknown) mg (unknown) (no (unknown) (unknown) Chlordiazepoxide (units (unknown) date) HCl 50 mg 07/13/22 unknown) 09:10 07/13/22 09:45 (unknown) (no (unknown) (unknown) Chloride 100 (units (u nknown) date) unknown) (unknown) (no (unknown) (unknown) Chloride 104 (units (u nknown) date) unknown) (unknown) (no (unknown) (unknown) Chloride (units (unkno wn) date) unknown) (unknown) (no (unknown) (unknown) Cipro IV Infused (units (unknown) date) unknown) (unknown) (no (unknown) (unknown) Ciprofloxacin 400 (units (unknown) date) mg in 200 mls @ 200 unknown) mls/hr 07/13/22 08:00 07/13/22 09:21 (unknown) (no (unknown) (unknown) Consent obtained (units (unknown) date) for unknown) 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: Yes (unknown) (no (unknown) (unknown) Const (units (unkno wn) date) unknown) (unknown) (no (unknown) (unknown) Consult details (units (unknown) date) unknown) (unknown) (no (unknown) (unknown) Creatinine 0.67 (units (unknown) date) unknown) (unknown) (no (unknown) (unknown) Creatinine 0.82 (units (unknown) date) unknown) (unknown) (no (unknown) (unknown) Creatinine (units (unk nown) date) unknown) (unknown) (no (unknown) (unknown) Critical Care (units ( unknown) date) time: unknown) (unknown) (no (unknown) (unknown) Current (units (unkno wn) date) Medications unknown) (unknown) (no (unknown) (unknown) DAILY SANDY (units (unkn own) date) Administration unknown) (unknown) (no (unknown) (unknown) : 1990 (units (unknown) date) Acct:[id number] unknown) (unknown) (no (unknown) (unknown) Date of Service: (units (unknown) date) 07/13/22 unknown) (unknown) (no (unknown) (unknown) Discussed the plan (units (unknown) date) of care with unknown) bedside RN, ICU charge nurse and hospitalist (unknown) (no (unknown) (unknown) Enoxaparin 40 (units ( unknown) date) Mg/0.4 Ml Syringe unknown) SUBCUT 40 mg (unknown) (no (unknown) (unknown) Enoxaparin Sodium (units (unknown) date) 40 mg 07/13/22 unknown) 09:00 07/13/22 09:28 (unknown) (no (unknown) (unknown) Eos # (Auto) 0 (units (unknown) date) unknown) (unknown) (no (unknown) (unknown) Eos # (Auto) (units (u nknown) date) unknown) (unknown) (no (unknown) (unknown) Eos % (Auto) 0.3 L (units (unknown) date) unknown) (unknown) (no (unknown) (unknown) Eos % (Auto) (units (u nknown) date) unknown) (unknown) (no (unknown) (unknown) Estimated GFR > 60 (units (unknown) date) unknown) (unknown) (no (unknown) (unknown) Estimated GFR (units ( unknown) date) unknown) (unknown) (no (unknown) (unknown) Ethyl Alcohol 338 (units (unknown) date) H unknown) (unknown) (no (unknown) (unknown) Ethyl Alcohol (units ( unknown) date) unknown) (unknown) (no (unknown) (unknown) Exam (units (unkno wn) date) unknown) (unknown) (no (unknown) (unknown) Family History (units (unknown) date) (Reviewed 07/13/22 unknown) @ 06:49 by LYUDMILA Borden) (unknown) (no (unknown) (unknown) Family/Other (units (u nknown) date) Alcoholism unknown) (unknown) (no (unknown) (unknown) Family/Other (units (u nknown) date) Diabetes mellitus unknown) (unknown) (no (unknown) (unknown) Father Alcoholism (units (unknown) date) unknown) (unknown) (no (unknown) (unknown) Folic Acid 1 Mg (units (unknown) date) Tablet PO 1 mg unknown) (unknown) (no (unknown) (unknown) Folic Acid 1 mg (units (unknown) date) 07/13/22 09:00 unknown) 07/13/22 09:27 (unknown) (no (unknown) (unknown) Free T4 0.93 (units (u nknown) date) unknown) (unknown) (no (unknown) (unknown) Free T4 (units (unkno wn) date) unknown) (unknown) (no (unknown) (unknown) Generic Name Dose (units (unknown) date) Route Start Last unknown) Admin (unknown) (no (unknown) (unknown) Globulin 2.7 (units (u nknown) date) unknown) (unknown) (no (unknown) (unknown) Globulin 3.0 (units (u nknown) date) unknown) (unknown) (no (unknown) (unknown) Globulin (units (unkno wn) date) unknown) (unknown) (no (unknown) (unknown) Glucose 111 H (units ( unknown) date) unknown) (unknown) (no (unknown) (unknown) Glucose 138 H (units ( unknown) date) unknown) (unknown) (no (unknown) (unknown) Glucose (units (unkno wn) date) unknown) (unknown) (no [...] extraction () unknown) (unknown) (no (unknown) (unknown) Hct 26.8 L (units (unk nown) date) unknown) (unknown) (no (unknown) (unknown) Hct 35.3 L (units (unk nown) date) unknown) (unknown) (no (unknown) (unknown) Hct (units (unkno wn) date) unknown) (unknown) (no (unknown) (unknown) Hematuria (units (unkn own) date) presence: without unknown) hematuria Qualified Code(s): N30.00 - Acute (unknown) (no (unknown) (unknown) Hgb 11.5 L (units (unk nown) date) unknown) (unknown) (no (unknown) (unknown) Hgb 9.1 L (units (unkn own) date) unknown) (unknown) (no (unknown) (unknown) Hgb (units (unkno wn) date) unknown) (unknown) (no (unknown) (unknown) History of Present (units (unknown) date) Illness unknown) (unknown) (no (unknown) (unknown) Home Medications (units (unknown) date) unknown) (unknown) (no (unknown) (unknown) I spent a total of (units (unknown) date) [30] minutes of unknown) critical care time on this patient's care (unknown) (no (unknown) (unknown) In Sinus (units (unkno wn) date) Tachycardia unknown) (unknown) (no (unknown) (unknown) 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 unknown) (unknown) (no (unknown) (unknown) Insomnia (units (unkno wn) date) unknown) (unknown) (no (unknown) (unknown) [facility] (units (unknown) date) [address] unknown) [place] [address] (unknown) (no (unknown) (unknown) May 2022 for (units (unknown) date) similar symptoms unknown) including most recent visit with blood alcohol (unknown) (no (unknown) (unknown) Laboratory Results (units (unknown) date) - last 24 hr unknown) (unknown) (no (unknown) (unknown) Labs (units (unkno wn) date) unknown) (unknown) (no (unknown) (unknown) Labs: (units (unkno wn) date) unknown) (unknown) (no (unknown) (unknown) Lorazepam 0 mg (units (unknown) date) 07/13/22 06:40 unknown) 07/13/22 10:15 (unknown) (no (unknown) (unknown) Lorazepam 2 Mg/Ml (units (unknown) date) Inj IV 2 mg unknown) (unknown) (no (unknown) (unknown) Lymph # (Auto) (units (unknown) date) 1200 unknown) (unknown) (no (unknown) (unknown) Lymph # (Auto) (units (unknown) date) 1700 unknown) (unknown) (no (unknown) (unknown) Lymph # (Auto) (units (unknown) date) unknown) (unknown) (no (unknown) (unknown) Lymph % (Auto) (units (unknown) date) 36.8 unknown) (unknown) (no (unknown) (unknown) Lymph % (Auto) (units (unknown) date) 50.6 H unknown) (unknown) (no (unknown) (unknown) Lymph % (Auto) (units (unknown) date) unknown) (unknown) (no (unknown) (unknown) MCH 26.0 (units (unkno wn) date) unknown) (unknown) (no (unknown) (unknown) MCH 26.3 (units (unkno wn) date) unknown) (unknown) (no (unknown) (unknown) MCH (units (unkno wn) date) unknown) (unknown) (no (unknown) (unknown) MCHC 32.7 (units (unkn own) date) unknown) (unknown) (no (unknown) (unknown) MCHC 34.0 (units (unkn own) date) unknown) (unknown) (no (unknown) (unknown) MCHC (units (unkno wn) date) unknown) (unknown) (no (unknown) (unknown) MCV 77.5 L (units (unk nown) date) unknown) (unknown) (no (unknown) (unknown) MCV 79.5 L (units (unk nown) date) unknown) (unknown) (no (unknown) (unknown) MCV (units (unkno wn) date) unknown) (unknown) (no (unknown) (unknown) MVI + Folate + (units (unknown) date) Thiamine + unknown) pyridoxine. (unknown) (no (unknown) (unknown) Magnesium 1.4 L (units (unknown) date) unknown) (unknown) (no (unknown) (unknown) Magnesium (units (unkn own) date) unknown) (unknown) (no (unknown) (unknown) Medical History (units (unknown) date) (Updated 07/13/22 @ unknown) 11:47 by Gerardo Mccormick MD) (unknown) (no (unknown) (unknown) Medications: (units (u nknown) date) unknown) (unknown) (no (unknown) (unknown) Menometrorrhagia (units (unknown) date) unknown) (unknown) (no (unknown) (unknown) Yates # (Auto) 100 (units (unknown) date) unknown) (unknown) (no (unknown) (unknown) Yates # (Auto) 200 (units (unknown) date) unknown) (unknown) (no (unknown) (unknown) Yates # (Auto) (units ( unknown) date) unknown) (unknown) (no (unknown) (unknown) Yates % (Auto) 2.7 (units (unknown) date) L unknown) (unknown) (no (unknown) (unknown) Yates % (Auto) 6.4 (units (unknown) date) unknown) (unknown) (no (unknown) (unknown) Yates % (Auto) (units ( unknown) date) unknown) (unknown) (no (unknown) (unknown) Mother Diabetes (units (unknown) date) mellitus unknown) (unknown) (no (unknown) (unknown) Moving all 4 (units (u nknown) date) extremities unknown) spontaneously (unknown) (no (unknown) (unknown) Multivitamin 1 (units (unknown) date) Tablet PO 1 tab unknown) (unknown) (no (unknown) (unknown) Multivitamins 1 (units (unknown) date) tab 07/13/22 09:00 unknown) 07/13/22 09:27 (unknown) (no (unknown) (unknown) Narrative: (units (unk nown) date) unknown) (unknown) (no (unknown) (unknown) Neuro (units (unkno wn) date) unknown) (unknown) (no (unknown) (unknown) Neut # (Auto) 1500 (units (unknown) date) unknown) (unknown) (no (unknown) (unknown) Neut # (Auto) 1800 (units (unknown) date) unknown) (unknown) (no (unknown) (unknown) Neut # (Auto) (units ( unknown) date) unknown) (unknown) (no (unknown) (unknown) Neut % (Auto) 45.5 (units (unknown) date) L unknown) (unknown) (no (unknown) (unknown) Neut % (Auto) 55.8 (units (unknown) date) unknown) (unknown) (no (unknown) (unknown) Neut % (Auto) (units ( unknown) date) unknown) (unknown) (no (unknown) (unknown) Nicotine 14 Patch (units (unknown) date) TOP 14 mg unknown) (unknown) (no (unknown) (unknown) Nicotine 14 mg (units (unknown) date) 07/13/22 09:00 unknown) 07/13/22 09:28 (unknown) (no (unknown) (unknown) Normal Saline 0.9% (units (unknown) date) IV 0 mls/hr unknown) (unknown) (no (unknown) (unknown) Not using (units (unkn own) date) accessory muscle unknown) use (unknown) (no (unknown) (unknown) Obesity (units (unkno wn) date) unknown) (unknown) (no (unknown) (unknown) Objective (units (unkn own) date) unknown) (unknown) (no (unknown) (unknown) Other (units (unkno wn) date) participants/roles: unknown) RN (unknown) (no (unknown) (unknown) Other: (units (unkno wn) date) unknown) (unknown) (no (unknown) (unknown) Overweight (units (unk nown) date) unknown) (unknown) (no (unknown) (unknown) Oxygen Delivery (units (unknown) date) Method Room Air unknown) (unknown) (no (unknown) (unknown) PFSH (units (unkno wn) date) unknown) (unknown) (no (unknown) (unknown) Pantoprazole 40 Mg (units (unknown) date) Vial IV 40 mg unknown) (unknown) (no (unknown) (unknown) Pantoprazole (units (u nknown) date) Sodium 40 mg unknown) 07/13/22 09:00 07/13/22 09:27 (unknown) (no (unknown) (unknown) Patient Location: (units (unknown) date) ICU unknown) (unknown) (no (unknown) (unknown) Patient stated that (units (unknown) date) she used to be unknown) sober for about 18 months in the past but had (unknown) (no (unknown) (unknown) Patient: (units (unkno wn) date) DorySarah R unknown) MR#: M (unknown) (no (unknown) (unknown) Plan: (units (unkno wn) date) unknown) (unknown) (no (unknown) (unknown) Plt Count 129 L (units (unknown) date) unknown) (unknown) (no (unknown) (unknown) Plt Count 226 (units ( unknown) date) unknown) (unknown) (no (unknown) (unknown) Plt Count (units (unkn own) date) unknown) (unknown) (no (unknown) (unknown) Potassium 3.7 (units ( unknown) date) unknown) (unknown) (no (unknown) (unknown) Potassium 3.9 (units ( unknown) date) unknown) (unknown) (no (unknown) (unknown) Potassium (units (unkn own) date) unknown) (unknown) (no (unknown) (unknown) Precedex IV 0.2 (units (unknown) date) mcg/kg/hr unknown) (unknown) (no (unknown) (unknown) Problem details: (units (unknown) date) unknown) (unknown) (no (unknown) (unknown) Protocol (units (unkno wn) date) unknown) (unknown) (no (unknown) (unknown) Provider location (units (unknown) date) (State): [place] unknown) (unknown) (no (unknown) (unknown) Provider: Gerardo (units (unknown) date) Jace unknown) (unknown) (no (unknown) (unknown) Pulse Oximetry 100 (units (unknown) date) 100 100 unknown) (unknown) (no (unknown) (unknown) Pulse Oximetry 100 (units (unknown) date) 98 unknown) (unknown) (no (unknown) (unknown) Pulse Oximetry 100 (units (unknown) date) unknown) (unknown) (no (unknown) (unknown) Pulse Oximetry 97 (units (unknown) date) 100 unknown) (unknown) (no (unknown) (unknown) Pulse Oximetry 97 (units (unknown) date) 98 98 unknown) (unknown) (no (unknown) (unknown) Pulse Oximetry 97 (units (unknown) date) 99 unknown) (unknown) (no (unknown) (unknown) Pulse Oximetry 98 (units (unknown) date) 98 unknown) (unknown) (no (unknown) (unknown) Pulse Oximetry 99 (units (unknown) date) unknown) (unknown) (no (unknown) (unknown) Pulse Rate 112 H (units (unknown) date) 125 H 75 unknown) (unknown) (no (unknown) (unknown) Pulse Rate 112 H (units (unknown) date) unknown) (unknown) (no (unknown) (unknown) Pulse Rate 119 H (units (unknown) date) 111 H unknown) (unknown) (no (unknown) (unknown) Pulse Rate 120 H (units (unknown) date) 122 H unknown) (unknown) (no (unknown) (unknown) Pulse Rate 122 H (units (unknown) date) 113 H unknown) (unknown) (no (unknown) (unknown) Pulse Rate 77 98 H (units (unknown) date) unknown) (unknown) (no (unknown) (unknown) Pulse Rate 97 H (units (unknown) date) unknown) (unknown) (no (unknown) (unknown) Pulse Rate 98 H (units (unknown) date) 101 H 109 H unknown) (unknown) (no (unknown) (unknown) Q12H SANDY Infusion (units (unknown) date) unknown) (unknown) (no (unknown) (unknown) Q6H SANDY (units (unkno wn) date) Administration unknown) (unknown) (no (unknown) (unknown) Qualifiers: (units (un known) date) unknown) (unknown) (no (unknown) (unknown) RBC 3.45 L (units (unk nown) date) unknown) (unknown) (no (unknown) (unknown) RBC 4.44 (units (unkno wn) date) unknown) (unknown) (no (unknown) (unknown) RBC (units (unkno wn) date) unknown) (unknown) (no (unknown) (unknown) RDW 17.3 H (units (unk nown) date) unknown) (unknown) (no (unknown) (unknown) RDW (units (unkno wn) date) unknown) (unknown) (no (unknown) (unknown) Respiratory Rate (units (unknown) date) 20 unknown) (unknown) (no (unknown) (unknown) Respiratory Rate (units (unknown) date) 22 unknown) (unknown) (no (unknown) (unknown) Respiratory Rate (units (unknown) date) unknown) (unknown) (no (unknown) (unknown) S/P myringotomy (units (unknown) date) with insertion of unknown) tube (unknown) (no (unknown) (unknown) SARS-CoV-2 (PCR) (units (unknown) date) Negative unknown) (unknown) (no (unknown) (unknown) SARS-CoV-2 (PCR) (units (unknown) date) unknown) (unknown) (no (unknown) (unknown) (spontaneous (units (unknown) date) vaginal delivery) unknown) (-09/05/18) (unknown) (no (unknown) (unknown) Salicylates < 1.0 (units (unknown) date) unknown) (unknown) (no (unknown) (unknown) Salicylates (units (un known) date) unknown) (unknown) (no (unknown) (unknown) She was also found (units (unknown) date) to have UTI and was unknown) given a dose of oral cephalexin. Her (unknown) (no (unknown) (unknown) Signed By: (units (unk nown) date) unknown) (unknown) (no (unknown) (unknown) Smoker (units (unkno wn) date) unknown) (unknown) (no (unknown) (unknown) Smoking Status: (units (unknown) date) Former smoker unknown) (unknown) (no (unknown) (unknown) Social History (units (unknown) date) (Reviewed 07/12/22 unknown) @ 17:50 by LYUDMILA Do) (unknown) (no (unknown) (unknown) Sodium 135 L (units (u nknown) date) unknown) (unknown) (no (unknown) (unknown) Sodium 140 (units (unk nown) date) unknown) (unknown) (no (unknown) (unknown) Sodium Chloride (units (unknown) date) 1,000 mls @ 100 unknown) mls/hr 07/13/22 06:45 07/13/22 10:47 (unknown) (no (unknown) (unknown) Sodium (units (unkno wn) date) unknown) (unknown) (no (unknown) (unknown) Status: Acute (units ( unknown) date) unknown) (unknown) (no (unknown) (unknown) Surgical History (units (unknown) date) (Reviewed 07/13/22 unknown) @ 06:49 by LYUDMILA Borden) (unknown) (no (unknown) (unknown) TITRATE SANDY 2.495 (units (unknown) date) mls/hr unknown) (unknown) (no (unknown) (unknown) TSH 1.24 (units (unkno wn) date) unknown) (unknown) (no (unknown) (unknown) TSH (units (unkno wn) date) unknown) (unknown) (no (unknown) (unknown) Teleintensivist (units (unknown) date) Consult Note unknown) (unknown) (no (unknown) (unknown) The patient has (units (unknown) date) high probability of unknown) sudden, clinically significant (unknown) (no (unknown) (unknown) Thiamine 100 Mg (units (unknown) date) Tablet PO 07/16/22 unknown) 09:01 100 mg (unknown) (no (unknown) (unknown) Thiamine HCl 100 (units (unknown) date) mg 07/13/22 09:00 unknown) 07/13/22 09:27 (unknown) (no (unknown) (unknown) This is a 31 years (units (unknown) date) old female with unknown) history of alcohol use disorder who presented (unknown) (no (unknown) (unknown) Time Spent With (units (unknown) date) Patient unknown) (unknown) (no (unknown) (unknown) Total Bilirubin (units (unknown) date) 0.4 unknown) (unknown) (no (unknown) (unknown) Total Bilirubin (units (unknown) date) 0.8 unknown) (unknown) (no (unknown) (unknown) Total Bilirubin (units (unknown) date) unknown) (unknown) (no (unknown) (unknown) Total Protein 6.2 (units (unknown) date) L unknown) (unknown) (no (unknown) (unknown) Total Protein 7.3 (units (unknown) date) unknown) (unknown) (no (unknown) (unknown) Total Protein (units ( unknown) date) unknown) (unknown) (no (unknown) (unknown) Trade Name Freq (units (unknown) date) PRN Reason Stop unknown) Dose Admin (unknown) (no (unknown) (unknown) U Benzodiazepines (units (unknown) date) Scrn Negative unknown) (unknown) (no (unknown) (unknown) U Benzodiazepines (units (unknown) date) Scrn unknown) (unknown) (no (unknown) (unknown) U Marijuana (THC) (units (unknown) date) Screen Negative unknown) (unknown) (no (unknown) (unknown) U Marijuana (THC) (units (unknown) date) Screen unknown) (unknown) (no (unknown) (unknown) U Methamphetamines (units (unknown) date) Scrn Negative unknown) (unknown) (no (unknown) (unknown) U Methamphetamines (units (unknown) date) Scrn unknown) (unknown) (no (unknown) (unknown) U Opiates 300ng/mL (units (unknown) date) cut Negative unknown) (unknown) (no (unknown) (unknown) U Opiates 300ng/mL (units (unknown) date) cut unknown) (unknown) (no (unknown) (unknown) U Tricyclic (units (un known) date) Antidepress unknown) Negative (unknown) (no (unknown) (unknown) U Tricyclic (units (un known) date) Antidepress unknown) (unknown) (no (unknown) (unknown) Ur Amphetamines (units (unknown) date) Screen Negative unknown) (unknown) (no (unknown) (unknown) Ur Amphetamines (units (unknown) date) Screen unknown) (unknown) (no (unknown) (unknown) Ur Barbiturates (units (unknown) date) Screen Negative unknown) (unknown) (no (unknown) (unknown) Ur Barbiturates (units (unknown) date) Screen unknown) (unknown) (no (unknown) (unknown) Ur Culture (units (unk nown) date) Indicated? Specimen unknown) cultured (unknown) (no (unknown) (unknown) Ur Culture (units (unk nown) date) Indicated? unknown) (unknown) (no (unknown) (unknown) Ur MDMA Scrn (units (u nknown) date) (Ecstasy) Negative unknown) (unknown) (no (unknown) (unknown) Ur MDMA Scrn (units (u nknown) date) (Ecstasy) unknown) (unknown) (no (unknown) (unknown) Ur Oxycodone (units (u nknown) date) Screen Negative unknown) (unknown) (no (unknown) (unknown) Ur Oxycodone (units (u nknown) date) Screen unknown) (unknown) (no (unknown) (unknown) Ur Phencyclidine (units (unknown) date) Scrn Negative unknown) (unknown) (no (unknown) (unknown) Ur Phencyclidine (units (unknown) date) Scrn unknown) (unknown) (no (unknown) (unknown) Ur Squamous Epith (units (unknown) date) Cells 1-5 /hpf unknown) (unknown) (no (unknown) (unknown) Ur Squamous Epith (units (unknown) date) Cells unknown) (unknown) (no (unknown) (unknown) Urine Bacteria (units (unknown) date) Many (>30) H unknown) (unknown) (no (unknown) (unknown) Urine Bacteria (units (unknown) date) unknown) (unknown) (no (unknown) (unknown) Urine Cocaine (units ( unknown) date) Screen Negative unknown) (unknown) (no (unknown) (unknown) Urine Cocaine (units ( unknown) date) Screen unknown) (unknown) (no (unknown) (unknown) Urine Methadone (units (unknown) date) Screen Negative unknown) (unknown) (no (unknown) (unknown) Urine Methadone (units (unknown) date) Screen unknown) (unknown) (no (unknown) (unknown) Urine RBC 1-5/hpf (units (unknown) date) unknown) (unknown) (no (unknown) (unknown) Urine RBC (units (unkn own) date) unknown) (unknown) (no (unknown) (unknown) Urine WBC 1-5/hpf (units (unknown) date) unknown) (unknown) (no (unknown) (unknown) Urine WBC (units (unkn own) date) unknown) (unknown) (no (unknown) (unknown) Visit Medications (units (unknown) date) (administered) unknown) (unknown) (no (unknown) (unknown) Vital Signs (units (un known) date) unknown) (unknown) (no (unknown) (unknown) WBC 3.3 L (units (unkn own) date) unknown) (unknown) (no (unknown) (unknown) WBC (units (unkno wn) date) unknown) (unknown) (no (unknown) (unknown) [Embedded Image (units (unknown) date) Not Available] unknown) (unknown) (no (unknown) (unknown) [Rx Confirmed (units ( unknown) date) 07/03/20] unknown) (unknown) (no (unknown) (unknown) [Rx] (units (unkno wn) date) unknown) (unknown) (no (unknown) (unknown) acetaminophen 325 (units (unknown) date) mg tablet (Tylenol) unknown) 325 mg PO Q6H PRN pain #20 tabs 02/05/20 (unknown) (no (unknown) (unknown) alcohol intake: (units (unknown) date) former unknown) (unknown) (no (unknown) (unknown) and Phos. (units (unkn own) date) unknown) (unknown) (no (unknown) (unknown) and hematocrit are (units (unknown) date) 11.5 and 35.3 unknown) respectively, glucose is 111, calcium 8.0, AST (unknown) (no (unknown) (unknown) appropriate (units (un known) date) referral for detox unknown) program. (unknown) (no (unknown) (unknown) as 750 cc of vodka (units (unknown) date) every day. She has unknown) had several visits to ER department in (unknown) (no (unknown) (unknown) bedside RN. (units (un known) date) unknown) (unknown) (no (unknown) (unknown) blood pressure (units (unknown) date) 93/54, heart rate unknown) 119, respiratory rate 18, oxygen saturation of (unknown) (no (unknown) (unknown) caps 02/05/20 [Rx (units (unknown) date) Confirmed 07/03/20] unknown) (unknown) (no (unknown) (unknown) care minutes of my (units (unknown) date) full attention on unknown) this patient's management and direct (unknown) (no (unknown) (unknown) current (units (unkno wn) date) occupational unknown) exposures/hazards: Yes (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 with Pandemic ) (unknown) (no (unknown) (unknown) cystitis without (units (unknown) date) hematuria unknown) (unknown) (no (unknown) (unknown) decision making. (units (unknown) date) Time devoted to unknown) procedures I billed separately and is not (unknown) (no (unknown) (unknown) deterioration, (units (unknown) date) which requires unknown) urgent interventions. I managed life supporting (unknown) (no (unknown) (unknown) dexmedeTOMIDine in (units (unknown) date) 0.9 % NaCL 400 mcg unknown) in 100 mls @ 2.495 mls/hr 07/13/22 11:15 (unknown) (no (unknown) (unknown) diphenhydramine (units (unknown) date) HCl 25 mg capsule unknown) (Benadryl) 25 mg PO BEDTIME PRN insomnia #20 (unknown) (no (unknown) (unknown) docusate sodium (units (unknown) date) 100 mg capsule unknown) (Colace) 100 mg PO BID #30 caps (unknown) (no (unknown) (unknown) education level: (units (unknown) date) college unknown) (unknown) (no (unknown) (unknown) renee/zoroastrianism: (units (unknown) date) Buddhist unknown) (unknown) (no (unknown) (unknown) following commands (units (unknown) date) unknown) (unknown) (no (unknown) (unknown) household members: (units (unknown) date) children unknown) (unknown) (no (unknown) (unknown) ibuprofen 600 mg (units (unknown) date) tablet 600 mg PO unknown) Q6HR PRN Pain, Mild (1-3) #30 tabs 07/04/20 (unknown) (no (unknown) (unknown) included. (units (unkn own) date) unknown) (unknown) (no (unknown) (unknown) initial work-up (units (unknown) date) was notable for unknown) blood alcohol level of 338. She is afebrile, (unknown) (no (unknown) (unknown) interventions that (units (unknown) date) required frequent unknown) physician assessment. I spent 35 critical (unknown) (no (unknown) (unknown) level in 300s. (units (unknown) date) Today, she was unknown) noted to be severely agitated and restless, (unknown) (no (unknown) (unknown) marital status: (units (unknown) date) unknown) (unknown) (no (unknown) (unknown) nausea/vomiting (units (unknown) date) unknown) (unknown) (no (unknown) (unknown) needed (no more (units (unknown) date) than 4 doses in 24 unknown) hours). (unknown) (no (unknown) (unknown) number of (units (unkn own) date) children: 1 unknown) (unknown) (no (unknown) (unknown) occupational (units (u nknown) date) status: employed unknown) (unknown) (no (unknown) (unknown) of alcohol (units (unk nown) date) withdrawal. unknown) (unknown) (no (unknown) (unknown) ondansetron 4 mg (units (unknown) date) disintegrating unknown) tablet 4 mg PO Q6H PRN nausea and vomiting #14 (unknown) (no (unknown) (unknown) ondansetron 4 mg (units (unknown) date) disintegrating unknown) tablet 4 mg PO Q8H PRN nausea and vomiting #20 (unknown) (no (unknown) (unknown) ondansetron 4 mg (units (unknown) date) disintegrating unknown) tablet 4 mg PO Q8H PRN nausea and vomiting #30 (unknown) (no (unknown) (unknown) patient care. Time (units (unknown) date) I spent with family unknown) or surrogate(s) is included if the (unknown) (no (unknown) (unknown) patient was (units (un known) date) incapable of unknown) providing information or participating in medical (unknown) (no (unknown) (unknown) phenobarbital 130 (units (unknown) date) mg IV so far with unknown) elevated CIWA score still between 12-20 per (unknown) (no (unknown) (unknown) prenat.vits,otis,mi (units (unknown) date) [id number] 1 tab unknown) PO DAILY 12/30/19 [History Confirmed (unknown) (no (unknown) (unknown) presented to ER (units (unknown) date) asking for help unknown) with rehab but she was deemed to be medically (unknown) (no (unknown) (unknown) prophylaxis (units (un known) date) unknown) (unknown) (no (unknown) (unknown) received (units (unkno wn) date) phenobarbital 130 unknown) mg IV x1, Librium 50 mg p.o. x1, and Ativan 6 mg IV (unknown) (no (unknown) (unknown) relapsed due to a (units (unknown) date) divorce with her unknown) . She states that she drinks as much (unknown) (no (unknown) (unknown) score remains less (units (unknown) date) than 12 for at unknown) least 12 hours. (unknown) (no (unknown) (unknown) second hand (units (un known) date) exposure: No unknown) (growing up as a child - not currently) (unknown) (no (unknown) (unknown) special renee (units ( unknown) date) needs: No unknown) (unknown) (no (unknown) (unknown) substance use (units ( unknown) date) type: does not use unknown) (unknown) (no (unknown) (unknown) symptom triggered (units (unknown) date) protocol. unknown) (unknown) (no (unknown) (unknown) tabs 06/12/22 [Rx] (units (unknown) date) unknown) (unknown) (no (unknown) (unknown) tabs 01/01/20 [Rx (units (unknown) date) Confirmed 07/03/20] unknown) (unknown) (no (unknown) (unknown) tabs 02/05/20 [Rx (units (unknown) date) Confirmed 07/03/20] unknown) (unknown) (no (unknown) (unknown) team (units (unkno wn) date) unknown) (unknown) (no (unknown) (unknown) this time and (units ( unknown) date) remains unknown) hemodynamically stable. (unknown) (no (unknown) (unknown) to ED with acute (units (unknown) date) alcohol unknown) intoxication with symptoms of alcohol withdrawal. (unknown) (no (unknown) (unknown) to urine cultures. (units (unknown) date) unknown) (unknown) (no (unknown) (unknown) today; this time (units (unknown) date) is exclusive of unknown) procedural time. (unknown) (no (unknown) (unknown) tramadol 50 mg (units (unknown) date) tablet 50 mg PO Q6H unknown) PRN pain #10 tabs 06/12/22 [Rx] (unknown) (no (unknown) (unknown) unstable for (units (u nknown) date) transfer to rehab. unknown) Her CIWA score in the ED was as high as 20. (unknown) (no (unknown) (unknown) x1 in the ED. She (units (unknown) date) is now admitted to unknown) ICU on Precedex drip. Result panel [id number] (unknown) (no (unknown) (unknown) (no value) (units (unk nown) date) unknown) (unknown) (no (unknown) (unknown) # CODE STATUS: (units (unknown) date) Full code unknown) (unknown) (no (unknown) (unknown) # Disposition: (units (unknown) date) Admit to ICU. May unknown) downgrade to MedSur telemetry floor if CIWA (unknown) (no (unknown) (unknown) # FEN: Regular (units (unknown) date) diet. C/w IVF (D5 unknown) 1/2 NS@100cc/hr). Aggressively replace Mg, K (unknown) (no (unknown) (unknown) # Glucose: Fairly (units (unknown) date) controlled. BG goal unknown) 120-180 (unknown) (no (unknown) (unknown) # Lines/tubes: PIV (units (unknown) date) unknown) (unknown) (no (unknown) (unknown) # Prophylaxis: (units (unknown) date) Lovenox 40 mg subcu unknown) for DVT prophylaxis, Pepcid for stress ulcer (unknown) (no (unknown) (unknown) (1) Alcohol (units (un known) date) withdrawal unknown) delirium, acute, hyperactive: (unknown) (no (unknown) (unknown) (2) Alcohol use (units (unknown) date) disorder: unknown) (unknown) (no (unknown) (unknown) (3) Acute (units (unkn own) date) cystitis: unknown) (unknown) (no (unknown) (unknown) (past 8 hours): (units (unknown) date) unknown) (unknown) (no (unknown) (unknown) - Agree with rest (units (unknown) date) of the management unknown) per primary team. D/w Primary hospitalist. (unknown) (no (unknown) (unknown) - C/w aspiration (units (unknown) date) and seizure unknown) precautions, Currently NPO due to severe (unknown) (no (unknown) (unknown) - Consult social (units (unknown) date) services to arrange unknown) for appropriate referral for detox program. (unknown) (no (unknown) (unknown) - Continue IV (units ( unknown) date) Ativan 4-10 mg unknown) every 15 min PRN with goal to keep CIWA <8 per (unknown) (no (unknown) (unknown) - Continue IV (units ( unknown) date) antibiotics x 3 unknown) days. Follow up and adjust antibiotics according (unknown) (no (unknown) (unknown) - Continue alcohol (units (unknown) date) withdrawal protocol unknown) including monitoring by CIWA score. C/w (unknown) (no (unknown) (unknown) - Has relapsed and (units (unknown) date) falied rehab. unknown) Consult social media intern to arrange for (unknown) (no (unknown) (unknown) - If unable to (units (unknown) date) keep CIWA less than unknown) 12, may use phenobarbital 130 mg IV/IM as (unknown) (no (unknown) (unknown) - Order US of (units ( unknown) date) abdomen to evaluate unknown) for liver cirrhosis. (unknown) (no (unknown) (unknown) - Received (units (unk nown) date) thiamine 100 mg IV, unknown) total 6 mg of Ativan IV, Librium 50 mg PO, and (unknown) (no (unknown) (unknown) - She is able to (units (unknown) date) protect his airway, unknown) does not need endotracheal intubation at (unknown) (no (unknown) (unknown) - Start Librium 50 (units (unknown) date) mg PO QID if and unknown) when able to tolerate PO meds. (unknown) (no (unknown) (unknown) - Still has room (units (unknown) date) to administer more unknown) BZPs and phenobarbital. Order Phenobarbital (unknown) (no (unknown) (unknown) - Use Precedex gtt (units (unknown) date) only for refractory unknown) DTs despite on aggressive treatment with (unknown) (no (unknown) (unknown) 0.2 MCG/KG/HR (units ( unknown) date) unknown) (unknown) (no (unknown) (unknown) [id number] (units (unkn own) date) unknown) (unknown) (no (unknown) (unknown) 07/03/20] (units (unkn own) date) unknown) (unknown) (no (unknown) (unknown) 07/12/22 07/12/22 (units (unknown) date) 07/12/22 unknown) (unknown) (no (unknown) (unknown) 07/13/22 07/13/22 (units (unknown) date) unknown) (unknown) (no (unknown) (unknown) 07/13/22 08:50 (units (unknown) date) unknown) (unknown) (no (unknown) (unknown) 07/13/22 11:13 (units (unknown) date) unknown) (unknown) (no (unknown) (unknown) 07/13/22 1207 (units ( unknown) date) unknown) (unknown) (no (unknown) (unknown) 07/13/22 (units (unkno wn) date) unknown) (unknown) (no (unknown) (unknown) 04:00 07/13/22 (units (unknown) date) unknown) (unknown) (no (unknown) (unknown) 04:30 07/13/22 (units (unknown) date) unknown) (unknown) (no (unknown) (unknown) 05:00 (units (unkno wn) date) unknown) (unknown) (no (unknown) (unknown) 05:30 07/13/22 (units (unknown) date) unknown) (unknown) (no (unknown) (unknown) 05:54 07/13/22 (units (unknown) date) unknown) (unknown) (no (unknown) (unknown) 05:54 (units (unkno wn) date) unknown) (unknown) (no (unknown) (unknown) 06:00 07/13/22 (units (unknown) date) unknown) (unknown) (no (unknown) (unknown) 06:39 (units (unkno wn) date) unknown) (unknown) (no (unknown) (unknown) 06:55 07/13/22 (units (unknown) date) unknown) (unknown) (no (unknown) (unknown) 07:04 07/13/22 (units (unknown) date) unknown) (unknown) (no (unknown) (unknown) 07:04 (units (unkno wn) date) unknown) (unknown) (no (unknown) (unknown) 07:33 07/13/22 (units (unknown) date) unknown) (unknown) (no (unknown) (unknown) 07:34 07/13/22 (units (unknown) date) unknown) (unknown) (no (unknown) (unknown) 07:34 (units (unkno wn) date) unknown) (unknown) (no (unknown) (unknown) 08:00 07/13/22 (units (unknown) date) unknown) (unknown) (no (unknown) (unknown) 08:33 (units (unkno wn) date) unknown) (unknown) (no (unknown) (unknown) 08:50 08:50 (units (un known) date) unknown) (unknown) (no (unknown) (unknown) 02/05/20 [Rx (units (u nknown) date) Confirmed 07/03/20] unknown) (unknown) (no (unknown) (unknown) 09:00 07/13/22 (units (unknown) date) unknown) (unknown) (no (unknown) (unknown) 09:46 (units (unkno wn) date) unknown) (unknown) (no (unknown) (unknown) 09:47 07/13/22 (units (unknown) date) unknown) (unknown) (no (unknown) (unknown) 16:32 16:32 16:32 (units (unknown) date) unknown) (unknown) (no (unknown) (unknown) 19:15 19:15 19:15 (units (unknown) date) unknown) (unknown) (no (unknown) (unknown) 60 mg IV BID (units (u nknown) date) scheduled. unknown) (unknown) (no (unknown) (unknown) 67, urinalysis (units (unknown) date) indicated many unknown) bacteria. As per the bedside nurse, patient (unknown) (no (unknown) (unknown) 97% on room air. (units (unknown) date) She weighs 49.8 kg unknown) with a BMI of 20.1. WBC is 3.3, hemoglobin (unknown) (no (unknown) (unknown) ALT 19 (units (unkno wn) date) unknown) (unknown) (no (unknown) (unknown) ALT 21 (units (unkno wn) date) unknown) (unknown) (no (unknown) (unknown) ALT (units (unkno wn) date) unknown) (unknown) (no (unknown) (unknown) AST 52 H (units (unkno wn) date) unknown) (unknown) (no (unknown) (unknown) AST 67 H (units (unkno wn) date) unknown) (unknown) (no (unknown) (unknown) AST (units (unkno wn) date) unknown) (unknown) (no (unknown) (unknown) Acetaminophen < 10 (units (unknown) date) unknown) (unknown) (no (unknown) (unknown) Acetaminophen (units ( unknown) date) unknown) (unknown) (no (unknown) (unknown) Administration (units (unknown) date) unknown) (unknown) (no (unknown) (unknown) Age/Sex: 31 / F (units (unknown) date) unknown) (unknown) (no (unknown) (unknown) Albumin 3.5 (units (un known) date) unknown) (unknown) (no (unknown) (unknown) Albumin 4.3 (units (un known) date) unknown) (unknown) (no (unknown) (unknown) Albumin (units (unkno wn) date) unknown) (unknown) (no (unknown) (unknown) Albumin/Globulin (units (unknown) date) Ratio 1.3 unknown) (unknown) (no (unknown) (unknown) Albumin/Globulin (units (unknown) date) Ratio 1.4 unknown) (unknown) (no (unknown) (unknown) Albumin/Globulin (units (unknown) date) Ratio unknown) (unknown) (no (unknown) (unknown) Alcohol Withdrawal (units (unknown) date) unknown) (unknown) (no (unknown) (unknown) Alcohol withdrawal (units (unknown) date) delirium, acute, unknown) hyperactive (unknown) (no (unknown) (unknown) Alcoholism (units (unk nown) date) unknown) (unknown) (no (unknown) (unknown) Alkaline (units (unkno wn) date) Phosphatase 75 unknown) (unknown) (no (unknown) (unknown) Alkaline (units (unkno wn) date) Phosphatase 98 unknown) (unknown) (no (unknown) (unknown) Alkaline (units (unkno wn) date) Phosphatase unknown) (unknown) (no (unknown) (unknown) Anemia (-2018) (units (unknown) date) unknown) (unknown) (no (unknown) (unknown) Assessment + Plan (units (unknown) date) unknown) (unknown) (no (unknown) (unknown) Assessment and (units (unknown) date) plan unknown) (unknown) (no (unknown) (unknown) Awake, oriented x (units (unknown) date) 3, severely unknown) confused, intermittently agitated/restless but (unknown) (no (unknown) (unknown) BUN 11 (units (unkno wn) date) unknown) (unknown) (no (unknown) (unknown) BUN 9 (units (unkno wn) date) unknown) (unknown) (no (unknown) (unknown) BUN (units (unkno wn) date) unknown) (unknown) (no (unknown) (unknown) BUN/Creatinine (units (unknown) date) Ratio 11.0 unknown) (unknown) (no (unknown) (unknown) BUN/Creatinine (units (unknown) date) Ratio 16.4 unknown) (unknown) (no (unknown) (unknown) BUN/Creatinine (units (unknown) date) Ratio unknown) (unknown) (no (unknown) (unknown) BZPs + phenobarb. (units (unknown) date) Would discourage unknown) the use of Precedex solely for the treatment (unknown) (no (unknown) (unknown) Baso # (Auto) 0 (units (unknown) date) unknown) (unknown) (no (unknown) (unknown) Baso # (Auto) (units ( unknown) date) unknown) (unknown) (no (unknown) (unknown) Baso % (Auto) 0.7 (units (unknown) date) unknown) (unknown) (no (unknown) (unknown) Baso % (Auto) 0.9 (units (unknown) date) unknown) (unknown) (no (unknown) (unknown) Baso % (Auto) (units ( unknown) date) unknown) (unknown) (no (unknown) (unknown) Blood Pressure (units (unknown) date) 104/59 L 123/58 L unknown) (unknown) (no (unknown) (unknown) Blood Pressure (units (unknown) date) 111/59 L unknown) (unknown) (no (unknown) (unknown) Blood Pressure (units (unknown) date) 116/75 116/65 unknown) (unknown) (no (unknown) (unknown) Blood Pressure (units (unknown) date) 93/54 L unknown) (unknown) (no (unknown) (unknown) Blood Pressure (units (unknown) date) 99/52 L unknown) (unknown) (no (unknown) (unknown) Blood Pressure (units (unknown) date) unknown) (unknown) (no (unknown) (unknown) CIWAPRN PRN (units (un known) date) Administration unknown) (unknown) (no (unknown) (unknown) CONT SANDY Infusion (units (unknown) date) unknown) (unknown) (no (unknown) (unknown) Calcium 8.0 L (units ( unknown) date) unknown) (unknown) (no (unknown) (unknown) Calcium 8.1 L (units ( unknown) date) unknown) (unknown) (no (unknown) (unknown) Calcium (units (unkno wn) date) unknown) (unknown) (no (unknown) (unknown) Carbon Dioxide 23 (units (unknown) date) unknown) (unknown) (no (unknown) (unknown) Carbon Dioxide 28 (units (unknown) date) unknown) (unknown) (no (unknown) (unknown) Carbon Dioxide (units (unknown) date) unknown) (unknown) (no (unknown) (unknown) Cardio (units (unkno wn) date) unknown) (unknown) (no (unknown) (unknown) Chest (units (unkno wn) date) unknown) (unknown) (no (unknown) (unknown) Chief complaint: (units (unknown) date) Acute alcohol unknown) withdrawal (unknown) (no (unknown) (unknown) Chlordiazepoxide (units (unknown) date) 25 Mg Capsule PO 50 unknown) mg (unknown) (no (unknown) (unknown) Chlordiazepoxide (units (unknown) date) HCl 50 mg 07/13/22 unknown) 09:10 07/13/22 09:45 (unknown) (no (unknown) (unknown) Chloride 100 (units (u nknown) date) unknown) (unknown) (no (unknown) (unknown) Chloride 104 (units (u nknown) date) unknown) (unknown) (no (unknown) (unknown) Chloride (units (unkno wn) date) unknown) (unknown) (no (unknown) (unknown) Cipro IV Infused (units (unknown) date) unknown) (unknown) (no (unknown) (unknown) Ciprofloxacin 400 (units (unknown) date) mg in 200 mls @ 200 unknown) mls/hr 07/13/22 08:00 07/13/22 09:21 (unknown) (no (unknown) (unknown) Consent obtained (units (unknown) date) for unknown) 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: Yes (unknown) (no (unknown) (unknown) Const (units (unkno wn) date) unknown) (unknown) (no (unknown) (unknown) Consult details (units (unknown) date) unknown) (unknown) (no (unknown) (unknown) Creatinine 0.67 (units (unknown) date) unknown) (unknown) (no (unknown) (unknown) Creatinine 0.82 (units (unknown) date) unknown) (unknown) (no (unknown) (unknown) Creatinine (units (unk nown) date) unknown) (unknown) (no (unknown) (unknown) Critical Care (units ( unknown) date) time: unknown) (unknown) (no (unknown) (unknown) Current (units (unkno wn) date) Medications unknown) (unknown) (no (unknown) (unknown) DAILY SANDY (units (unkn own) date) Administration unknown) (unknown) (no (unknown) (unknown) : 1990 (units (unknown) date) Acct:[id number] unknown) (unknown) (no (unknown) (unknown) Date of Service: (units (unknown) date) 07/13/22 unknown) (unknown) (no (unknown) (unknown) Discussed the plan (units (unknown) date) of care with unknown) bedside RN, ICU charge nurse and hospitalist (unknown) (no (unknown) (unknown) Enoxaparin 40 (units ( unknown) date) Mg/0.4 Ml Syringe unknown) SUBCUT 40 mg (unknown) (no (unknown) (unknown) Enoxaparin Sodium (units (unknown) date) 40 mg 07/13/22 unknown) 09:00 07/13/22 09:28 (unknown) (no (unknown) (unknown) Eos # (Auto) 0 (units (unknown) date) unknown) (unknown) (no (unknown) (unknown) Eos # (Auto) (units (u nknown) date) unknown) (unknown) (no (unknown) (unknown) Eos % (Auto) 0.3 L (units (unknown) date) unknown) (unknown) (no (unknown) (unknown) Eos % (Auto) (units (u nknown) date) unknown) (unknown) (no (unknown) (unknown) Estimated GFR > 60 (units (unknown) date) unknown) (unknown) (no (unknown) (unknown) Estimated GFR (units ( unknown) date) unknown) (unknown) (no (unknown) (unknown) Ethyl Alcohol 338 (units (unknown) date) H unknown) (unknown) (no (unknown) (unknown) Ethyl Alcohol (units ( unknown) date) unknown) (unknown) (no (unknown) (unknown) Exam (units (unkno wn) date) unknown) (unknown) (no (unknown) (unknown) Family History (units (unknown) date) (Reviewed 07/13/22 unknown) @ 06:49 by LYUDMILA Borden) (unknown) (no (unknown) (unknown) Family/Other (units (u nknown) date) Alcoholism unknown) (unknown) (no (unknown) (unknown) Family/Other (units (u nknown) date) Diabetes mellitus unknown) (unknown) (no (unknown) (unknown) Father Alcoholism (units (unknown) date) unknown) (unknown) (no (unknown) (unknown) Folic Acid 1 Mg (units (unknown) date) Tablet PO 1 mg unknown) (unknown) (no (unknown) (unknown) Folic Acid 1 mg (units (unknown) date) 07/13/22 09:00 unknown) 07/13/22 09:27 (unknown) (no (unknown) (unknown) Free T4 0.93 (units (u nknown) date) unknown) (unknown) (no (unknown) (unknown) Free T4 (units (unkno wn) date) unknown) (unknown) (no (unknown) (unknown) Generic Name Dose (units (unknown) date) Route Start Last unknown) Admin (unknown) (no (unknown) (unknown) Globulin 2.7 (units (u nknown) date) unknown) (unknown) (no (unknown) (unknown) Globulin 3.0 (units (u nknown) date) unknown) (unknown) (no (unknown) (unknown) Globulin (units (unkno wn) date) unknown) (unknown) (no (unknown) (unknown) Glucose 111 H (units ( unknown) date) unknown) (unknown) (no (unknown) (unknown) Glucose 138 H (units ( unknown) date) unknown) (unknown) (no (unknown) (unknown) Glucose (units (unkno wn) date) unknown) (unknown) (no [...] extraction () unknown) (unknown) (no (unknown) (unknown) Hct 26.8 L (units (unk nown) date) unknown) (unknown) (no (unknown) (unknown) Hct 35.3 L (units (unk nown) date) unknown) (unknown) (no (unknown) (unknown) Hct (units (unkno wn) date) unknown) (unknown) (no (unknown) (unknown) Hematuria (units (unkn own) date) presence: without unknown) hematuria Qualified Code(s): N30.00 - Acute (unknown) (no (unknown) (unknown) Hgb 11.5 L (units (unk nown) date) unknown) (unknown) (no (unknown) (unknown) Hgb 9.1 L (units (unkn own) date) unknown) (unknown) (no (unknown) (unknown) Hgb (units (unkno wn) date) unknown) (unknown) (no (unknown) (unknown) History of Present (units (unknown) date) Illness unknown) (unknown) (no (unknown) (unknown) Home Medications (units (unknown) date) unknown) (unknown) (no (unknown) (unknown) I spent a total of (units (unknown) date) [30] minutes of unknown) critical care time on this patient's care (unknown) (no (unknown) (unknown) IF CAMERA (units (unkn own) date) ACTIVATED, patient unknown) seen via real-time interactive audiovisual (unknown) (no (unknown) (unknown) In Sinus (units (unkno wn) date) Tachycardia unknown) (unknown) (no (unknown) (unknown) 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 unknown) (unknown) (no (unknown) (unknown) Insomnia (units (unkno wn) date) unknown) (unknown) (no (unknown) (unknown) [facility] (units (unknown) date) [address] unknown) [place] [address] (unknown) (no (unknown) (unknown) May 2022 for (units (unknown) date) similar symptoms unknown) including most recent visit with blood alcohol (unknown) (no (unknown) (unknown) Laboratory Results (units (unknown) date) - last 24 hr unknown) (unknown) (no (unknown) (unknown) Labs (units (unkno wn) date) unknown) (unknown) (no (unknown) (unknown) Labs: (units (unkno wn) date) unknown) (unknown) (no (unknown) (unknown) Lorazepam 0 mg (units (unknown) date) 07/13/22 06:40 unknown) 07/13/22 10:15 (unknown) (no (unknown) (unknown) Lorazepam 2 Mg/Ml (units (unknown) date) Inj IV 2 mg unknown) (unknown) (no (unknown) (unknown) Lymph # (Auto) (units (unknown) date) 1200 unknown) (unknown) (no (unknown) (unknown) Lymph # (Auto) (units (unknown) date) 1700 unknown) (unknown) (no (unknown) (unknown) Lymph # (Auto) (units (unknown) date) unknown) (unknown) (no (unknown) (unknown) Lymph % (Auto) (units (unknown) date) 36.8 unknown) (unknown) (no (unknown) (unknown) Lymph % (Auto) (units (unknown) date) 50.6 H unknown) (unknown) (no (unknown) (unknown) Lymph % (Auto) (units (unknown) date) unknown) (unknown) (no (unknown) (unknown) MCH 26.0 (units (unkno wn) date) unknown) (unknown) (no (unknown) (unknown) MCH 26.3 (units (unkno wn) date) unknown) (unknown) (no (unknown) (unknown) MCH (units (unkno wn) date) unknown) (unknown) (no (unknown) (unknown) MCHC 32.7 (units (unkn own) date) unknown) (unknown) (no (unknown) (unknown) MCHC 34.0 (units (unkn own) date) unknown) (unknown) (no (unknown) (unknown) MCHC (units (unkno wn) date) unknown) (unknown) (no (unknown) (unknown) MCV 77.5 L (units (unk nown) date) unknown) (unknown) (no (unknown) (unknown) MCV 79.5 L (units (unk nown) date) unknown) (unknown) (no (unknown) (unknown) MCV (units (unkno wn) date) unknown) (unknown) (no (unknown) (unknown) MVI + Folate + (units (unknown) date) Thiamine + unknown) pyridoxine. (unknown) (no (unknown) (unknown) Magnesium 1.4 L (units (unknown) date) unknown) (unknown) (no (unknown) (unknown) Magnesium (units (unkn own) date) unknown) (unknown) (no (unknown) (unknown) Medical History (units (unknown) date) (Updated 07/13/22 @ unknown) 11:47 by Gerardo Mccormick MD) (unknown) (no (unknown) (unknown) Medications: (units (u nknown) date) unknown) (unknown) (no (unknown) (unknown) Menometrorrhagia (units (unknown) date) unknown) (unknown) (no (unknown) (unknown) Yates # (Auto) 100 (units (unknown) date) unknown) (unknown) (no (unknown) (unknown) Yates # (Auto) 200 (units (unknown) date) unknown) (unknown) (no (unknown) (unknown) Yates # (Auto) (units ( unknown) date) unknown) (unknown) (no (unknown) (unknown) Yates % (Auto) 2.7 (units (unknown) date) L unknown) (unknown) (no (unknown) (unknown) Yates % (Auto) 6.4 (units (unknown) date) unknown) (unknown) (no (unknown) (unknown) Yates % (Auto) (units ( unknown) date) unknown) (unknown) (no (unknown) (unknown) Mother Diabetes (units (unknown) date) mellitus unknown) (unknown) (no (unknown) (unknown) Moving all 4 (units (u nknown) date) extremities unknown) spontaneously (unknown) (no (unknown) (unknown) Multivitamin 1 (units (unknown) date) Tablet PO 1 tab unknown) (unknown) (no (unknown) (unknown) Multivitamins 1 (units (unknown) date) tab 07/13/22 09:00 unknown) 07/13/22 09:27 (unknown) (no (unknown) (unknown) Narrative: (units (unk nown) date) unknown) (unknown) (no (unknown) (unknown) Neuro (units (unkno wn) date) unknown) (unknown) (no (unknown) (unknown) Neut # (Auto) 1500 (units (unknown) date) unknown) (unknown) (no (unknown) (unknown) Neut # (Auto) 1800 (units (unknown) date) unknown) (unknown) (no (unknown) (unknown) Neut # (Auto) (units ( unknown) date) unknown) (unknown) (no (unknown) (unknown) Neut % (Auto) 45.5 (units (unknown) date) L unknown) (unknown) (no (unknown) (unknown) Neut % (Auto) 55.8 (units (unknown) date) unknown) (unknown) (no (unknown) (unknown) Neut % (Auto) (units ( unknown) date) unknown) (unknown) (no (unknown) (unknown) Nicotine 14 Patch (units (unknown) date) TOP 14 mg unknown) (unknown) (no (unknown) (unknown) Nicotine 14 mg (units (unknown) date) 07/13/22 09:00 unknown) 07/13/22 09:28 (unknown) (no (unknown) (unknown) Normal Saline 0.9% (units (unknown) date) IV 0 mls/hr unknown) (unknown) (no (unknown) (unknown) Not using (units (unkn own) date) accessory muscle unknown) use (unknown) (no (unknown) (unknown) Obesity (units (unkno wn) date) unknown) (unknown) (no (unknown) (unknown) Objective (units (unkn own) date) unknown) (unknown) (no (unknown) (unknown) Other (units (unkno wn) date) participants/roles: unknown) RN (unknown) (no (unknown) (unknown) Other: (units (unkno wn) date) unknown) (unknown) (no (unknown) (unknown) Overweight (units (unk nown) date) unknown) (unknown) (no (unknown) (unknown) Oxygen Delivery (units (unknown) date) Method Room Air unknown) (unknown) (no (unknown) (unknown) PFSH (units (unkno wn) date) unknown) (unknown) (no (unknown) (unknown) Pantoprazole 40 Mg (units (unknown) date) Vial IV 40 mg unknown) (unknown) (no (unknown) (unknown) Pantoprazole (units (u nknown) date) Sodium 40 mg unknown) 07/13/22 09:00 07/13/22 09:27 (unknown) (no (unknown) (unknown) Patient Location: (units (unknown) date) ICU unknown) (unknown) (no (unknown) (unknown) Patient stated that (units (unknown) date) she used to be unknown) sober for about 18 months in the past but had (unknown) (no (unknown) (unknown) Patient: (units (unkno wn) date) Sarah Connors unknown) MR#: M (unknown) (no (unknown) (unknown) Plan: (units (unkno wn) date) unknown) (unknown) (no (unknown) (unknown) Plt Count 129 L (units (unknown) date) unknown) (unknown) (no (unknown) (unknown) Plt Count 226 (units ( unknown) date) unknown) (unknown) (no (unknown) (unknown) Plt Count (units (unkn own) date) unknown) (unknown) (no (unknown) (unknown) Potassium 3.7 (units ( unknown) date) unknown) (unknown) (no (unknown) (unknown) Potassium 3.9 (units ( unknown) date) unknown) (unknown) (no (unknown) (unknown) Potassium (units (unkn own) date) unknown) (unknown) (no (unknown) (unknown) Precedex IV 0.2 (units (unknown) date) mcg/kg/hr unknown) (unknown) (no (unknown) (unknown) Problem details: (units (unknown) date) unknown) (unknown) (no (unknown) (unknown) Protocol (units (unkno wn) date) unknown) (unknown) (no (unknown) (unknown) Provider location (units (unknown) date) (State): [place] unknown) (unknown) (no (unknown) (unknown) Provider: Gerardo (units (unknown) date) Jace unknown) (unknown) (no (unknown) (unknown) Pulse Oximetry 100 (units (unknown) date) 100 100 unknown) (unknown) (no (unknown) (unknown) Pulse Oximetry 100 (units (unknown) date) 98 unknown) (unknown) (no (unknown) (unknown) Pulse Oximetry 100 (units (unknown) date) unknown) (unknown) (no (unknown) (unknown) Pulse Oximetry 97 (units (unknown) date) 100 unknown) (unknown) (no (unknown) (unknown) Pulse Oximetry 97 (units (unknown) date) 98 98 unknown) (unknown) (no (unknown) (unknown) Pulse Oximetry 97 (units (unknown) date) 99 unknown) (unknown) (no (unknown) (unknown) Pulse Oximetry 98 (units (unknown) date) 98 unknown) (unknown) (no (unknown) (unknown) Pulse Oximetry 99 (units (unknown) date) unknown) (unknown) (no (unknown) (unknown) Pulse Rate 112 H (units (unknown) date) 125 H 75 unknown) (unknown) (no (unknown) (unknown) Pulse Rate 112 H (units (unknown) date) unknown) (unknown) (no (unknown) (unknown) Pulse Rate 119 H (units (unknown) date) 111 H unknown) (unknown) (no (unknown) (unknown) Pulse Rate 120 H (units (unknown) date) 122 H unknown) (unknown) (no (unknown) (unknown) Pulse Rate 122 H (units (unknown) date) 113 H unknown) (unknown) (no (unknown) (unknown) Pulse Rate 77 98 H (units (unknown) date) unknown) (unknown) (no (unknown) (unknown) Pulse Rate 97 H (units (unknown) date) unknown) (unknown) (no (unknown) (unknown) Pulse Rate 98 H (units (unknown) date) 101 H 109 H unknown) (unknown) (no (unknown) (unknown) Q12H SANDY Infusion (units (unknown) date) unknown) (unknown) (no (unknown) (unknown) Q6H SANDY (units (unkno wn) date) Administration unknown) (unknown) (no (unknown) (unknown) Qualifiers: (units (un known) date) unknown) (unknown) (no (unknown) (unknown) RBC 3.45 L (units (unk nown) date) unknown) (unknown) (no (unknown) (unknown) RBC 4.44 (units (unkno wn) date) unknown) (unknown) (no (unknown) (unknown) RBC (units (unkno wn) date) unknown) (unknown) (no (unknown) (unknown) RDW 17.3 H (units (unk nown) date) unknown) (unknown) (no (unknown) (unknown) RDW (units (unkno wn) date) unknown) (unknown) (no (unknown) (unknown) Respiratory Rate (units (unknown) date) 20 unknown) (unknown) (no (unknown) (unknown) Respiratory Rate (units (unknown) date) 22 unknown) (unknown) (no (unknown) (unknown) Respiratory Rate (units (unknown) date) unknown) (unknown) (no (unknown) (unknown) S/P myringotomy (units (unknown) date) with insertion of unknown) tube (unknown) (no (unknown) (unknown) SARS-CoV-2 (PCR) (units (unknown) date) Negative unknown) (unknown) (no (unknown) (unknown) SARS-CoV-2 (PCR) (units (unknown) date) unknown) (unknown) (no (unknown) (unknown) (spontaneous (units (unknown) date) vaginal delivery) unknown) (-09/05/18) (unknown) (no (unknown) (unknown) Salicylates < 1.0 (units (unknown) date) unknown) (unknown) (no (unknown) (unknown) Salicylates (units (un known) date) unknown) (unknown) (no (unknown) (unknown) She was also found (units (unknown) date) to have UTI and was unknown) given a dose of oral cephalexin. Her (unknown) (no (unknown) (unknown) Signed (units (unkno wn) date) By:<Electronically unknown) signed by Gerardo Mccormick> (unknown) (no (unknown) (unknown) Smoker (units (unkno wn) date) unknown) (unknown) (no (unknown) (unknown) Smoking Status: (units (unknown) date) Former smoker unknown) (unknown) (no (unknown) (unknown) Social History (units (unknown) date) (Reviewed 07/12/22 unknown) @ 17:50 by LYUDMILA Do) (unknown) (no (unknown) (unknown) Sodium 135 L (units (u nknown) date) unknown) (unknown) (no (unknown) (unknown) Sodium 140 (units (unk nown) date) unknown) (unknown) (no (unknown) (unknown) Sodium Chloride (units (unknown) date) 1,000 mls @ 100 unknown) mls/hr 07/13/22 06:45 07/13/22 10:47 (unknown) (no (unknown) (unknown) Sodium (units (unkno wn) date) unknown) (unknown) (no (unknown) (unknown) Status: Acute (units ( unknown) date) unknown) (unknown) (no (unknown) (unknown) Surgical History (units (unknown) date) (Reviewed 07/13/22 unknown) @ 06:49 by LYUDMILA Borden) (unknown) (no (unknown) (unknown) TITRATE SANDY 2.495 (units (unknown) date) mls/hr unknown) (unknown) (no (unknown) (unknown) TSH 1.24 (units (unkno wn) date) unknown) (unknown) (no (unknown) (unknown) TSH (units (unkno wn) date) unknown) (unknown) (no (unknown) (unknown) Teleintensivist (units (unknown) date) Consult Note unknown) (unknown) (no (unknown) (unknown) The patient has (units (unknown) date) high probability of unknown) sudden, clinically significant (unknown) (no (unknown) (unknown) Thiamine 100 Mg (units (unknown) date) Tablet PO 07/16/22 unknown) 09:01 100 mg (unknown) (no (unknown) (unknown) Thiamine HCl 100 (units (unknown) date) mg 07/13/22 09:00 unknown) 07/13/22 09:27 (unknown) (no (unknown) (unknown) This is a 31 years (units (unknown) date) old female with unknown) history of alcohol use disorder who presented (unknown) (no (unknown) (unknown) Time Spent With (units (unknown) date) Patient unknown) (unknown) (no (unknown) (unknown) Total Bilirubin (units (unknown) date) 0.4 unknown) (unknown) (no (unknown) (unknown) Total Bilirubin (units (unknown) date) 0.8 unknown) (unknown) (no (unknown) (unknown) Total Bilirubin (units (unknown) date) unknown) (unknown) (no (unknown) (unknown) Total Protein 6.2 (units (unknown) date) L unknown) (unknown) (no (unknown) (unknown) Total Protein 7.3 (units (unknown) date) unknown) (unknown) (no (unknown) (unknown) Total Protein (units ( unknown) date) unknown) (unknown) (no (unknown) (unknown) Trade Name Freq (units (unknown) date) PRN Reason Stop unknown) Dose Admin (unknown) (no (unknown) (unknown) U Benzodiazepines (units (unknown) date) Scrn Negative unknown) (unknown) (no (unknown) (unknown) U Benzodiazepines (units (unknown) date) Scrn unknown) (unknown) (no (unknown) (unknown) U Marijuana (THC) (units (unknown) date) Screen Negative unknown) (unknown) (no (unknown) (unknown) U Marijuana (THC) (units (unknown) date) Screen unknown) (unknown) (no (unknown) (unknown) U Methamphetamines (units (unknown) date) Scrn Negative unknown) (unknown) (no (unknown) (unknown) U Methamphetamines (units (unknown) date) Scrn unknown) (unknown) (no (unknown) (unknown) U Opiates 300ng/mL (units (unknown) date) cut Negative unknown) (unknown) (no (unknown) (unknown) U Opiates 300ng/mL (units (unknown) date) cut unknown) (unknown) (no (unknown) (unknown) U Tricyclic (units (un known) date) Antidepress unknown) Negative (unknown) (no (unknown) (unknown) U Tricyclic (units (un known) date) Antidepress unknown) (unknown) (no (unknown) (unknown) Ur Amphetamines (units (unknown) date) Screen Negative unknown) (unknown) (no (unknown) (unknown) Ur Amphetamines (units (unknown) date) Screen unknown) (unknown) (no (unknown) (unknown) Ur Barbiturates (units (unknown) date) Screen Negative unknown) (unknown) (no (unknown) (unknown) Ur Barbiturates (units (unknown) date) Screen unknown) (unknown) (no (unknown) (unknown) Ur Culture (units (unk nown) date) Indicated? Specimen unknown) cultured (unknown) (no (unknown) (unknown) Ur Culture (units (unk nown) date) Indicated? unknown) (unknown) (no (unknown) (unknown) Ur MDMA Scrn (units (u nknown) date) (Ecstasy) Negative unknown) (unknown) (no (unknown) (unknown) Ur MDMA Scrn (units (u nknown) date) (Ecstasy) unknown) (unknown) (no (unknown) (unknown) Ur Oxycodone (units (u nknown) date) Screen Negative unknown) (unknown) (no (unknown) (unknown) Ur Oxycodone (units (u nknown) date) Screen unknown) (unknown) (no (unknown) (unknown) Ur Phencyclidine (units (unknown) date) Scrn Negative unknown) (unknown) (no (unknown) (unknown) Ur Phencyclidine (units (unknown) date) Scrn unknown) (unknown) (no (unknown) (unknown) Ur Squamous Epith (units (unknown) date) Cells 1-5 /hpf unknown) (unknown) (no (unknown) (unknown) Ur Squamous Epith (units (unknown) date) Cells unknown) (unknown) (no (unknown) (unknown) Urine Bacteria (units (unknown) date) Many (>30) H unknown) (unknown) (no (unknown) (unknown) Urine Bacteria (units (unknown) date) unknown) (unknown) (no (unknown) (unknown) Urine Cocaine (units ( unknown) date) Screen Negative unknown) (unknown) (no (unknown) (unknown) Urine Cocaine (units ( unknown) date) Screen unknown) (unknown) (no (unknown) (unknown) Urine Methadone (units (unknown) date) Screen Negative unknown) (unknown) (no (unknown) (unknown) Urine Methadone (units (unknown) date) Screen unknown) (unknown) (no (unknown) (unknown) Urine RBC 1-5/hpf (units (unknown) date) unknown) (unknown) (no (unknown) (unknown) Urine RBC (units (unkn own) date) unknown) (unknown) (no (unknown) (unknown) Urine WBC 1-5/hpf (units (unknown) date) unknown) (unknown) (no (unknown) (unknown) Urine WBC (units (unkn own) date) unknown) (unknown) (no (unknown) (unknown) Visit Medications (units (unknown) date) (administered) unknown) (unknown) (no (unknown) (unknown) Vital Signs (units (un known) date) unknown) (unknown) (no (unknown) (unknown) WBC 3.3 L (units (unkn own) date) unknown) (unknown) (no (unknown) (unknown) WBC (units (unkno wn) date) unknown) (unknown) (no (unknown) (unknown) [Embedded Image (units (unknown) date) Not Available] unknown) (unknown) (no (unknown) (unknown) [Rx Confirmed (units ( unknown) date) 07/03/20] unknown) (unknown) (no (unknown) (unknown) [Rx] (units (unkno wn) date) unknown) (unknown) (no (unknown) (unknown) acetaminophen 325 (units (unknown) date) mg tablet (Tylenol) unknown) 325 mg PO Q6H PRN pain #20 tabs 02/05/20 (unknown) (no (unknown) (unknown) alcohol intake: (units (unknown) date) former unknown) (unknown) (no (unknown) (unknown) and Phos. (units (unkn own) date) unknown) (unknown) (no (unknown) (unknown) and hematocrit are (units (unknown) date) 11.5 and 35.3 unknown) respectively, glucose is 111, calcium 8.0, AST (unknown) (no (unknown) (unknown) appropriate (units (un known) date) referral for detox unknown) program. (unknown) (no (unknown) (unknown) as 750 cc of vodka (units (unknown) date) every day. She has unknown) had several visits to ER department in (unknown) (no (unknown) (unknown) bedside RN. (units (un known) date) unknown) (unknown) (no (unknown) (unknown) blood pressure (units (unknown) date) 93/54, heart rate unknown) 119, respiratory rate 18, oxygen saturation of (unknown) (no (unknown) (unknown) caps 02/05/20 [Rx (units (unknown) date) Confirmed 07/03/20] unknown) (unknown) (no (unknown) (unknown) care minutes of my (units (unknown) date) full attention on unknown) this patient's management and direct (unknown) (no (unknown) (unknown) communication: (units (unknown) date) Camera activated unknown) (unknown) (no (unknown) (unknown) current (units (unkno wn) date) occupational unknown) exposures/hazards: Yes (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 with Pandemic ) (unknown) (no (unknown) (unknown) cystitis without (units (unknown) date) hematuria unknown) (unknown) (no (unknown) (unknown) decision making. (units (unknown) date) Time devoted to unknown) procedures I billed separately and is not (unknown) (no (unknown) (unknown) deterioration, (units (unknown) date) which requires unknown) urgent interventions. I managed life supporting (unknown) (no (unknown) (unknown) dexmedeTOMIDine in (units (unknown) date) 0.9 % NaCL 400 mcg unknown) in 100 mls @ 2.495 mls/hr 07/13/22 11:15 (unknown) (no (unknown) (unknown) diphenhydramine (units (unknown) date) HCl 25 mg capsule unknown) (Benadryl) 25 mg PO BEDTIME PRN insomnia #20 (unknown) (no (unknown) (unknown) docusate sodium (units (unknown) date) 100 mg capsule unknown) (Colace) 100 mg PO BID #30 caps (unknown) (no (unknown) (unknown) education level: (units (unknown) date) college unknown) (unknown) (no (unknown) (unknown) renee/zoroastrianism: (units (unknown) date) Buddhist unknown) (unknown) (no (unknown) (unknown) following commands (units (unknown) date) unknown) (unknown) (no (unknown) (unknown) household members: (units (unknown) date) children unknown) (unknown) (no (unknown) (unknown) ibuprofen 600 mg (units (unknown) date) tablet 600 mg PO unknown) Q6HR PRN Pain, Mild (1-3) #30 tabs 07/04/20 (unknown) (no (unknown) (unknown) included. (units (unkn own) date) unknown) (unknown) (no (unknown) (unknown) initial work-up (units (unknown) date) was notable for unknown) blood alcohol level of 338. She is afebrile, (unknown) (no (unknown) (unknown) interventions that (units (unknown) date) required frequent unknown) physician assessment. I spent 35 critical (unknown) (no (unknown) (unknown) level in 300s. (units (unknown) date) Today, she was unknown) noted to be severely agitated and restless, (unknown) (no (unknown) (unknown) marital status: (units (unknown) date) unknown) (unknown) (no (unknown) (unknown) nausea/vomiting (units (unknown) date) unknown) (unknown) (no (unknown) (unknown) needed (no more (units (unknown) date) than 4 doses in 24 unknown) hours). (unknown) (no (unknown) (unknown) number of (units (unkn own) date) children: 1 unknown) (unknown) (no (unknown) (unknown) occupational (units (u nknown) date) status: employed unknown) (unknown) (no (unknown) (unknown) of alcohol (units (unk nown) date) withdrawal. unknown) (unknown) (no (unknown) (unknown) ondansetron 4 mg (units (unknown) date) disintegrating unknown) tablet 4 mg PO Q6H PRN nausea and vomiting #14 (unknown) (no (unknown) (unknown) ondansetron 4 mg (units (unknown) date) disintegrating unknown) tablet 4 mg PO Q8H PRN nausea and vomiting #20 (unknown) (no (unknown) (unknown) ondansetron 4 mg (units (unknown) date) disintegrating unknown) tablet 4 mg PO Q8H PRN nausea and vomiting #30 (unknown) (no (unknown) (unknown) patient care. Time (units (unknown) date) I spent with family unknown) or surrogate(s) is included if the (unknown) (no (unknown) (unknown) patient was (units (un known) date) incapable of unknown) providing information or participating in medical (unknown) (no (unknown) (unknown) phenobarbital 130 (units (unknown) date) mg IV so far with unknown) elevated CIWA score still between 12-20 per (unknown) (no (unknown) (unknown) prenat.vits,otis,mi (units (unknown) date) a-ksyf-tnsso 1 tab unknown) PO DAILY 12/30/19 [History Confirmed (unknown) (no (unknown) (unknown) presented to ER (units (unknown) date) asking for help unknown) with rehab but she was deemed to be medically (unknown) (no (unknown) (unknown) prophylaxis (units (un known) date) unknown) (unknown) (no (unknown) (unknown) received (units (unkno wn) date) phenobarbital 130 unknown) mg IV x1, Librium 50 mg p.o. x1, and Ativan 6 mg IV (unknown) (no (unknown) (unknown) relapsed due to a (units (unknown) date) divorce with her unknown) . She states that she drinks as much (unknown) (no (unknown) (unknown) score remains less (units (unknown) date) than 12 for at unknown) least 12 hours. (unknown) (no (unknown) (unknown) second hand (units (un known) date) exposure: No unknown) (growing up as a child - not currently) (unknown) (no (unknown) (unknown) special renee (units ( unknown) date) needs: No unknown) (unknown) (no (unknown) (unknown) substance use (units ( unknown) date) type: does not use unknown) (unknown) (no (unknown) (unknown) symptom triggered (units (unknown) date) protocol. unknown) (unknown) (no (unknown) (unknown) tabs 06/12/22 [Rx] (units (unknown) date) unknown) (unknown) (no (unknown) (unknown) tabs 01/01/20 [Rx (units (unknown) date) Confirmed 07/03/20] unknown) (unknown) (no (unknown) (unknown) tabs 02/05/20 [Rx (units (unknown) date) Confirmed 07/03/20] unknown) (unknown) (no (unknown) (unknown) team (units (unkno wn) date) unknown) (unknown) (no (unknown) (unknown) this time and (units ( unknown) date) remains unknown) hemodynamically stable. (unknown) (no (unknown) (unknown) to ED with acute (units (unknown) date) alcohol unknown) intoxication with symptoms of alcohol withdrawal. (unknown) (no (unknown) (unknown) to urine cultures. (units (unknown) date) unknown) (unknown) (no (unknown) (unknown) today; this time (units (unknown) date) is exclusive of unknown) procedural time. (unknown) (no (unknown) (unknown) tramadol 50 mg (units (unknown) date) tablet 50 mg PO Q6H unknown) PRN pain #10 tabs 06/12/22 [Rx] (unknown) (no (unknown) (unknown) unstable for (units (u nknown) date) transfer to rehab. unknown) Her CIWA score in the ED was as high as 20. (unknown) (no (unknown) (unknown) x1 in the ED. She (units (unknown) date) is now admitted to unknown) ICU on Precedex drip. Result panel [id number] (unknown) (no date) (unknown) (unknown) Not Detected (units ( unknown) unknown) Result panel [id number] (unknown) (no (unknown) (unknown) (no value) (units (unk nown) date) unknown) (unknown) (no (unknown) (unknown) [id number] (units (unkn own) date) unknown) (unknown) (no (unknown) (unknown) 07/13/222058 (units ( unknown) date) unknown) (unknown) (no (unknown) (unknown) :: (units (unkno wn) date) unknown) (unknown) (no (unknown) (unknown) Age/Sex: 31 / F (units (unknown) date) unknown) (unknown) (no (unknown) (unknown) : 1990 (units (unknown) date) Acct:[id number] unknown) (unknown) (no (unknown) (unknown) Date of Service: (units (unknown) date) 07/13/22 unknown) (unknown) (no (unknown) (unknown) ICU (units (unkno wn) date) Multidisciplinary unknown) Rounds (unknown) (no (unknown) (unknown) [facility] (units (unknown) date) [address] unknown) [place] [address] (unknown) (no (unknown) (unknown) Patient: (units (unkno wn) date) Sarah Connors R unknown) MR#: M (unknown) (no (unknown) (unknown) Provider: Juan Miguel (units (unknown) date) Rita unknown) (unknown) (no (unknown) (unknown) Signed (units (unkno wn) date) By:<Electronically unknown) signed by Juan Miguel Salinas> (unknown) (no (unknown) (unknown) This patient was (units (unknown) date) seen via real time unknown) interactive two-way audiovisual (unknown) (no (unknown) (unknown) conversive, but her (units (unknown) date) RASS did drop to -2 unknown) at times. Currently on 0.6mcg/kg/min. On (unknown) (no (unknown) (unknown) fluid (units (unkno wn) date) resusctiation. No unknown) obvious bleeding diathesis. will f/u repeat cbc. with (unknown) (no (unknown) (unknown) goal being a hgb > (units (unknown) date) 7. unknown) (unknown) (no (unknown) (unknown) lab review her hgb (units (unknown) date) did drop though I do unknown) think this is likely hemodilution after (unknown) (no (unknown) (unknown) telecommunication. (units (unknown) date) Pt ciwa imrpoved on unknown) precedex drip. she was awake and Result panel [id number] (unknown) (no date) (unknown) (unknown) 0 /ul (unkn own) (unknown) (no date) (unknown) (unknown) 0.8 % (unkn own) (unknown) (no date) (unknown) (unknown) 10.2 g/dl (unkn own) (unknown) (no date) (unknown) (unknown) 100 /ul (unkn own) (unknown) (no date) (unknown) (unknown) 1100 /ul (unkn own) (unknown) (no date) (unknown) (unknown) 116 x10 3/ul (unkn own) (unknown) (no date) (unknown) (unknown) 17.5 % (unkn own) (unknown) (no date) (unknown) (unknown) 2.4 % (unkn own) (unknown) (no date) (unknown) (unknown) 200 /ul (unkn own) (unknown) (no date) (unknown) (unknown) 2100 /ul (unkn own) (unknown) (no date) (unknown) (unknown) 26.5 pg (unkn own) (unknown) (no date) (unknown) (unknown) 3.5 x10 3/ul (unkn own) (unknown) (no date) (unknown) (unknown) 3.85 x10 6/ul (unkn own) (unknown) (no date) (unknown) (unknown) 30.0 % (unkn own) (unknown) (no date) (unknown) (unknown) 30.8 % (unkn own) (unknown) (no date) (unknown) (unknown) 34.1 % (unkn own) (unknown) (no date) (unknown) (unknown) 5.3 % (unkn own) (unknown) (no date) (unknown) (unknown) 60.7 % (unkn own) (unknown) (no date) (unknown) (unknown) 77.8 fl (unkn own) Result panel [id number] (unknown) (no date) (unknown) (unknown) > 60 ml/min (unkn own) (unknown) (no date) (unknown) (unknown) > 60 ml/min (unkn own) (unknown) (no date) (unknown) (unknown) 0.63 mg/dl (unkn own) (unknown) (no date) (unknown) (unknown) 0.7 mg/dl (unkn own) (unknown) (no date) (unknown) (unknown) 1.3 (units unknown) (unknown) (unknown) (no date) (unknown) (unknown) 1.9 mg/dl (unkn own) (unknown) (no date) (unknown) (unknown) 101 mmol/l (unkn own) (unknown) (no date) (unknown) (unknown) 132 mmol/l (unkn own) (unknown) (no date) (unknown) (unknown) 17 iu/l (unkn own) (unknown) (no date) (unknown) (unknown) 2.7 g/dl (unkn own) (unknown) (no date) (unknown) (unknown) 27 mmol/l (unkn own) (unknown) (no date) (unknown) (unknown) 3.5 g/dl (unkn own) (unknown) (no date) (unknown) (unknown) 4.2 mmol/l (unkn own) (unknown) (no date) (unknown) (unknown) 45 iu/l (unkn own) (unknown) (no date) (unknown) (unknown) 5 mg/dl (unkn own) (unknown) (no date) (unknown) (unknown) 6.2 g/dl (unkn own) (unknown) (no date) (unknown) (unknown) 68 u/l (unkn own) (unknown) (no date) (unknown) (unknown) 7.9 (units unknown) (unknown) (unknown) (no date) (unknown) (unknown) 8.5 mg/dl (unkn own) (unknown) (no date) (unknown) (unknown) 95 mg/dl (unkn own) (unknown) (no date) (unknown) (unknown) 95 mg/dl (unkn own) Result panel 2379 (unknown) (no (unknown) (unknown) (no value) (units (unk nown) date) unknown) (unknown) (no (unknown) (unknown) (past 8 hours): (units (unknown) date) unknown) (unknown) (no (unknown) (unknown) [id number] (units (unkn own) date) unknown) (unknown) (no (unknown) (unknown) 02:00 07/14/22 (units (unknown) date) unknown) (unknown) (no (unknown) (unknown) 02:08 (units (unkno wn) date) unknown) (unknown) (no (unknown) (unknown) 07/13/22 07/13/22 (units (unknown) date) 07/14/22 unknown) (unknown) (no (unknown) (unknown) 07/14/22 08:20 (units (unknown) date) unknown) (unknown) (no (unknown) (unknown) 07/14/22 (units (unkno wn) date) unknown) (unknown) (no (unknown) (unknown) 03:00 07/14/22 (units (unknown) date) unknown) (unknown) (no (unknown) (unknown) 04:00 07/14/22 (units (unknown) date) unknown) (unknown) (no (unknown) (unknown) 04:00 (units (unkno wn) date) unknown) (unknown) (no (unknown) (unknown) 05:00 07/14/22 (units (unknown) date) unknown) (unknown) (no (unknown) (unknown) 05:00 (units (unkno wn) date) unknown) (unknown) (no (unknown) (unknown) 06:00 07/14/22 (units (unknown) date) unknown) (unknown) (no (unknown) (unknown) 06:28 (units (unkno wn) date) unknown) (unknown) (no (unknown) (unknown) 07:01 07/14/22 (units (unknown) date) unknown) (unknown) (no (unknown) (unknown) 07:52 (units (unkno wn) date) unknown) (unknown) (no (unknown) (unknown) 08:00 07/14/22 (units (unknown) date) unknown) (unknown) (no (unknown) (unknown) 08:20 (units (unkno wn) date) unknown) (unknown) (no (unknown) (unknown) 08:50 15:28 08:20 (units (unknown) date) unknown) (unknown) (no (unknown) (unknown) 09:00 07/14/22 (units (unknown) date) unknown) (unknown) (no (unknown) (unknown) 09:00 (units (unkno wn) date) unknown) (unknown) (no (unknown) (unknown) 09:12 (units (unkno wn) date) unknown) (unknown) (no (unknown) (unknown) ALT 17 (units (unkno wn) date) unknown) (unknown) (no (unknown) (unknown) ALT 19 (units (unkno wn) date) unknown) (unknown) (no (unknown) (unknown) AST 45 H (units (unkno wn) date) unknown) (unknown) (no (unknown) (unknown) AST 52 H (units (unkno wn) date) unknown) (unknown) (no (unknown) (unknown) Age/Sex: 31 / F (units (unknown) date) unknown) (unknown) (no (unknown) (unknown) Albumin 3.5 (units (un known) date) unknown) (unknown) (no (unknown) (unknown) Albumin/Globulin (units (unknown) date) Ratio 1.3 unknown) (unknown) (no (unknown) (unknown) Alcohol withdrawal (units (unknown) date) delirium, acute, unknown) hyperactive (unknown) (no (unknown) (unknown) Alcoholism (units (unk nown) date) unknown) (unknown) (no (unknown) (unknown) Alkaline (units (unkno wn) date) Phosphatase 68 unknown) (unknown) (no (unknown) (unknown) Alkaline (units (unkno wn) date) Phosphatase 75 unknown) (unknown) (no (unknown) (unknown) Anemia (-2018) (units (unknown) date) unknown) (unknown) (no (unknown) (unknown) Assessment + Plan (units (unknown) date) unknown) (unknown) (no (unknown) (unknown) BUN 11 (units (unkno wn) date) unknown) (unknown) (no (unknown) (unknown) BUN 5 L (units (unkno wn) date) unknown) (unknown) (no (unknown) (unknown) BUN/Creatinine (units (unknown) date) Ratio 16.4 unknown) (unknown) (no (unknown) (unknown) BUN/Creatinine (units (unknown) date) Ratio 7.9 unknown) (unknown) (no (unknown) (unknown) Baso # (Auto) 0 (units (unknown) date) unknown) (unknown) (no (unknown) (unknown) Baso # (Auto) (units ( unknown) date) unknown) (unknown) (no (unknown) (unknown) Baso % (Auto) 0.8 (units (unknown) date) unknown) (unknown) (no (unknown) (unknown) Baso % (Auto) (units ( unknown) date) unknown) (unknown) (no (unknown) (unknown) Blood Pressure (units (unknown) date) 105/75 unknown) (unknown) (no (unknown) (unknown) Blood Pressure (units (unknown) date) 107/75 unknown) (unknown) (no (unknown) (unknown) Blood Pressure (units (unknown) date) 109/74 110/75 unknown) (unknown) (no (unknown) (unknown) Blood Pressure (units (unknown) date) 110/79 112/63 unknown) (unknown) (no (unknown) (unknown) Blood Pressure (units (unknown) date) 113/81 unknown) (unknown) (no (unknown) (unknown) Blood Pressure (units (unknown) date) 114/78 unknown) (unknown) (no (unknown) (unknown) Blood Pressure (units (unknown) date) unknown) (unknown) (no (unknown) (unknown) Calcium 8.1 L (units ( unknown) date) unknown) (unknown) (no (unknown) (unknown) Calcium 8.5 (units (un known) date) unknown) (unknown) (no (unknown) (unknown) Carbon Dioxide 27 (units (unknown) date) unknown) (unknown) (no (unknown) (unknown) Carbon Dioxide 28 (units (unknown) date) unknown) (unknown) (no (unknown) (unknown) Chloride 100 (units (u nknown) date) unknown) (unknown) (no (unknown) (unknown) Chloride 101 (units (u nknown) date) unknown) (unknown) (no (unknown) (unknown) Creatinine 0.63 (units (unknown) date) unknown) (unknown) (no (unknown) (unknown) Creatinine 0.67 (units (unknown) date) unknown) (unknown) (no (unknown) (unknown) Critical Care (units ( unknown) date) time: unknown) (unknown) (no (unknown) (unknown) : 1990 (units (unknown) date) Acct:[id number] unknown) (unknown) (no (unknown) (unknown) Date of Service: (units (unknown) date) 07/13/22 unknown) (unknown) (no (unknown) (unknown) Eos # (Auto) 100 (units (unknown) date) unknown) (unknown) (no (unknown) (unknown) Eos # (Auto) (units (u nknown) date) unknown) (unknown) (no (unknown) (unknown) Eos % (Auto) 2.4 (units (unknown) date) unknown) (unknown) (no (unknown) (unknown) Eos % (Auto) (units (u nknown) date) unknown) (unknown) (no (unknown) (unknown) Estimated GFR > 60 (units (unknown) date) unknown) (unknown) (no (unknown) (unknown) Exam (units (unkno wn) date) unknown) (unknown) (no (unknown) (unknown) Family History (units (unknown) date) (Reviewed 07/13/22 unknown) @ 06:49 by LYUDMILA Borden) (unknown) (no (unknown) (unknown) Family/Other (units (u nknown) date) Alcoholism unknown) (unknown) (no (unknown) (unknown) Family/Other (units (u nknown) date) Diabetes mellitus unknown) (unknown) (no (unknown) (unknown) Father Alcoholism (units (unknown) date) unknown) (unknown) (no (unknown) (unknown) Globulin 2.7 (units (u nknown) date) unknown) (unknown) (no (unknown) (unknown) Glucose 138 H (units ( unknown) date) unknown) (unknown) (no (unknown) (unknown) Glucose 95 (units (unk nown) date) unknown) (unknown) (no (unknown) (unknown) Grandfather [...] extraction (-2013) unknown) (unknown) (no (unknown) (unknown) Hct 30.0 L (units (unk nown) date) unknown) (unknown) (no (unknown) (unknown) Hct (units (unkno wn) date) unknown) (unknown) (no (unknown) (unknown) Hgb 10.2 L (units (unk nown) date) unknown) (unknown) (no (unknown) (unknown) Hgb (units (unkno wn) date) unknown) (unknown) (no (unknown) (unknown) I spent a total of (units (unknown) date) [] minutes of unknown) critical care time on this patient's care (unknown) (no (unknown) (unknown) Insomnia (units (unkno wn) date) unknown) (unknown) (no (unknown) (unknown) Interval history: (units (unknown) date) unknown) (unknown) (no (unknown) (unknown) [facility] (units (unknown) date) [address] unknown) [place] [address] (unknown) (no (unknown) (unknown) Laboratory Results (units (unknown) date) - last 24 hr unknown) (unknown) (no (unknown) (unknown) Labs (units (unkno wn) date) unknown) (unknown) (no (unknown) (unknown) Labs: (units (unkno wn) date) unknown) (unknown) (no (unknown) (unknown) Lymph # (Auto) (units (unknown) date) 1100 unknown) (unknown) (no (unknown) (unknown) Lymph # (Auto) (units (unknown) date) unknown) (unknown) (no (unknown) (unknown) Lymph % (Auto) (units (unknown) date) 30.8 unknown) (unknown) (no (unknown) (unknown) Lymph % (Auto) (units (unknown) date) unknown) (unknown) (no (unknown) (unknown) MCH 26.5 (units (unkno wn) date) unknown) (unknown) (no (unknown) (unknown) MCH (units (unkno wn) date) unknown) (unknown) (no (unknown) (unknown) MCHC 34.1 (units (unkn own) date) unknown) (unknown) (no (unknown) (unknown) MCHC (units (unkno wn) date) unknown) (unknown) (no (unknown) (unknown) MCV 77.8 L (units (unk nown) date) unknown) (unknown) (no (unknown) (unknown) MCV (units (unkno wn) date) unknown) (unknown) (no (unknown) (unknown) Magnesium 1.4 L (units (unknown) date) unknown) (unknown) (no (unknown) (unknown) Magnesium 1.9 (units ( unknown) date) unknown) (unknown) (no (unknown) (unknown) Medical History (units (unknown) date) (Updated 07/13/22 @ unknown) 11:47 by Gerardo Mccormick MD) (unknown) (no (unknown) (unknown) Menometrorrhagia (units (unknown) date) unknown) (unknown) (no (unknown) (unknown) Yates # (Auto) 200 (units (unknown) date) unknown) (unknown) (no (unknown) (unknown) Yates # (Auto) (units ( unknown) date) unknown) (unknown) (no (unknown) (unknown) Yates % (Auto) 5.3 (units (unknown) date) unknown) (unknown) (no (unknown) (unknown) Yates % (Auto) (units ( unknown) date) unknown) (unknown) (no (unknown) (unknown) Mother Diabetes (units (unknown) date) mellitus unknown) (unknown) (no (unknown) (unknown) Nasal Screen MRSA (units (unknown) date) (PCR) Not detected unknown) (unknown) (no (unknown) (unknown) Nasal Screen MRSA (units (unknown) date) (PCR) unknown) (unknown) (no (unknown) (unknown) Neut # (Auto) 2100 (units (unknown) date) unknown) (unknown) (no (unknown) (unknown) Neut # (Auto) (units ( unknown) date) unknown) (unknown) (no (unknown) (unknown) Neut % (Auto) 60.7 (units (unknown) date) unknown) (unknown) (no (unknown) (unknown) Neut % (Auto) (units ( unknown) date) unknown) (unknown) (no (unknown) (unknown) Obesity (units (unkno wn) date) unknown) (unknown) (no (unknown) (unknown) Objective (units (unkn own) date) unknown) (unknown) (no (unknown) (unknown) Overweight (units (unk nown) date) unknown) (unknown) (no (unknown) (unknown) Oxygen Delivery (units (unknown) date) Method Room Air unknown) (unknown) (no (unknown) (unknown) PFSH (units (unkno wn) date) unknown) (unknown) (no (unknown) (unknown) Patient stated that (units (unknown) date) she used to be unknown) sober for about 18 months in the past but had (unknown) (no (unknown) (unknown) Patient: (units (unkno wn) date) Sarah Connors R unknown) MR#: M (unknown) (no (unknown) (unknown) Plt Count 116 L (units (unknown) date) unknown) (unknown) (no (unknown) (unknown) Plt Count (units (unkn own) date) unknown) (unknown) (no (unknown) (unknown) Potassium 3.7 (units ( unknown) date) unknown) (unknown) (no (unknown) (unknown) Potassium 4.2 (units ( unknown) date) unknown) (unknown) (no (unknown) (unknown) Progress Note (units ( unknown) date) unknown) (unknown) (no (unknown) (unknown) Provider: (units (unkn own) date) Vanesa Hall unknown) (unknown) (no (unknown) (unknown) Pulse Oximetry 97 (units (unknown) date) 98 unknown) (unknown) (no (unknown) (unknown) Pulse Oximetry 97 (units (unknown) date) unknown) (unknown) (no (unknown) (unknown) Pulse Oximetry 98 (units (unknown) date) 97 unknown) (unknown) (no (unknown) (unknown) Pulse Oximetry 98 (units (unknown) date) 98 unknown) (unknown) (no (unknown) (unknown) Pulse Rate 62 63 (units (unknown) date) unknown) (unknown) (no (unknown) (unknown) Pulse Rate 63 61 (units (unknown) date) unknown) (unknown) (no (unknown) (unknown) Pulse Rate 63 (units ( unknown) date) unknown) (unknown) (no (unknown) (unknown) Pulse Rate 66 67 (units (unknown) date) unknown) (unknown) (no (unknown) (unknown) Pulse Rate 67 62 (units (unknown) date) unknown) (unknown) (no (unknown) (unknown) Pulse Rate 68 (units ( unknown) date) unknown) (unknown) (no (unknown) (unknown) Pulse Rate 69 66 (units (unknown) date) unknown) (unknown) (no (unknown) (unknown) RBC 3.85 L (units (unk nown) date) unknown) (unknown) (no (unknown) (unknown) RBC (units (unkno wn) date) unknown) (unknown) (no (unknown) (unknown) RDW 17.5 H (units (unk nown) date) unknown) (unknown) (no (unknown) (unknown) RDW (units (unkno wn) date) unknown) (unknown) (no (unknown) (unknown) S/P [...] (unknown) Social History (units (unknown) date) (Reviewed 07/12/22 unknown) @ 17:50 by LYUDMILA Do) (unknown) (no (unknown) (unknown) Sodium 132 L (units (u nknown) date) unknown) (unknown) (no (unknown) (unknown) Sodium 135 L (units (u nknown) date) unknown) (unknown) (no (unknown) (unknown) Subjective (units (unk nown) date) unknown) (unknown) (no (unknown) (unknown) Surgical History (units (unknown) date) (Reviewed 07/13/22 unknown) @ 06:49 by LYUDMILA Borden) (unknown) (no (unknown) (unknown) This is a 31 years (units (unknown) date) old female with unknown) history of alcohol use disorder who presented (unknown) (no (unknown) (unknown) Time Spent With (units (unknown) date) Patient unknown) (unknown) (no (unknown) (unknown) Total Bilirubin (units (unknown) date) 0.7 unknown) (unknown) (no (unknown) (unknown) Total Bilirubin (units (unknown) date) 0.8 unknown) (unknown) (no (unknown) (unknown) Total Protein 6.2 (units (unknown) date) L unknown) (unknown) (no (unknown) (unknown) Vital Signs (units (un known) date) unknown) (unknown) (no (unknown) (unknown) WBC 3.5 L (units (unkn own) date) unknown) (unknown) (no (unknown) (unknown) WBC (units (unkno wn) date) unknown) (unknown) (no (unknown) (unknown) [Embedded Image (units (unknown) date) Not Available] unknown) (unknown) (no (unknown) (unknown) a dose of oral (units (unknown) date) cephalexin and now unknown) is on cipro IV BID.? Her initial work-up was (unknown) (no (unknown) (unknown) alcohol intake: (units (unknown) date) former unknown) (unknown) (no (unknown) (unknown) answers. (units (unkno wn) date) unknown) (unknown) (no (unknown) (unknown) be severely (units (un known) date) agitated and unknown) restless, presented to ER asking for help with rehab (unknown) (no (unknown) (unknown) but she was deemed (units (unknown) date) to be medically unknown) unstable for transfer to rehab.? Her CIWA (unknown) (no (unknown) (unknown) current (units (unkno wn) date) occupational unknown) exposures/hazards: Yes (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 with Pandemic ) (unknown) (no (unknown) (unknown) drip due to need (units (unknown) date) for continued unknown) sedation. Arousable but not given any valuable (unknown) (no (unknown) (unknown) education level: (units (unknown) date) college unknown) (unknown) (no (unknown) (unknown) renee/zoroastrianism: (units (unknown) date) Buddhist unknown) (unknown) (no (unknown) (unknown) household members: (units (unknown) date) children unknown) (unknown) (no (unknown) (unknown) marital status: (units (unknown) date) unknown) (unknown) (no (unknown) (unknown) most recent visit (units (unknown) date) with blood alcohol unknown) level in 300s.? Yesterday, she was noted to (unknown) (no (unknown) (unknown) notable for blood (units (unknown) date) alcohol level of unknown) 338. ? She is admitted to ICU on Precedex (unknown) (no (unknown) (unknown) number of (units (unkn own) date) children: 1 unknown) (unknown) (no (unknown) (unknown) occupational (units (u nknown) date) status: employed unknown) (unknown) (no (unknown) (unknown) relapsed due to a (units (unknown) date) divorce with her unknown) per previous notes.? She states that (unknown) (no (unknown) (unknown) score in the ED was (units (unknown) date) as high as 20.? She unknown) was also found to have UTI and was given (unknown) (no (unknown) (unknown) second hand (units (un known) date) exposure: No unknown) (growing up as a child - not currently) (unknown) (no (unknown) (unknown) several visits to (units (unknown) date) ER department in unknown) May 2022 for similar symptoms including (unknown) (no (unknown) (unknown) she drinks as much (units (unknown) date) as 750 cc of vodka unknown) every day as documented.? She has had (unknown) (no (unknown) (unknown) special renee (units ( unknown) date) needs: No unknown) (unknown) (no (unknown) (unknown) substance use (units ( unknown) date) type: does not use unknown) (unknown) (no (unknown) (unknown) to ED with acute (units (unknown) date) alcohol unknown) intoxication with symptoms of alcohol withdrawal.? (unknown) (no (unknown) (unknown) today; this time (units (unknown) date) is exclusive of unknown) procedural time. Result panel 2379 (unknown) (no date) (unknown) (unknown) No growth. (units (un known) unknown) Result panel 238 (unknown) (no (unknown) (unknown) (no value) (units (unk nown) date) unknown) (unknown) (no (unknown) (unknown) (past 8 hours): (units (unknown) date) unknown) (unknown) (no (unknown) (unknown) - CIWA protocol (units (unknown) date) and seizure unknown) precautions (unknown) (no (unknown) (unknown) - She has a (units (unk nown) date) prescribed bottle unknown) of seroquel, which ED stated she was encouraged to (unknown) (no (unknown) (unknown) - She is ordered (units (unknown) date) for a librium tapor unknown) (unknown) (no (unknown) (unknown) - She received (units (unknown) date) multiple doses of unknown) oral ativan, IV was placed in the ED.? (unknown) (no (unknown) (unknown) - She was (units (unkn own) date) administered a 1 unknown) time dose of cephalexin po in the ED (unknown) (no (unknown) (unknown) - She was ordered (units (unknown) date) for a one time dose unknown) of IV phenobarbitol 130 mg X 1 (unknown) (no (unknown) (unknown) - She will be (units ( unknown) date) started on IV unknown) ceftriaxone 1 gram daily (unknown) (no (unknown) (unknown) - currently in ICU (units (unknown) date) on precedex unknown) infusion (unknown) (no (unknown) (unknown) [id number] (units (unkn own) date) unknown) (unknown) (no (unknown) (unknown) 02:00 07/14/22 (units (unknown) date) unknown) (unknown) (no (unknown) (unknown) 02:08 (units (unkno wn) date) unknown) (unknown) (no (unknown) (unknown) 07/13/22 07/13/22 (units (unknown) date) 07/14/22 unknown) (unknown) (no (unknown) (unknown) 07/14/22 08:20 (units (unknown) date) unknown) (unknown) (no (unknown) (unknown) 07/14/22 (units (unkno wn) date) unknown) (unknown) (no (unknown) (unknown) 03:00 07/14/22 (units (unknown) date) unknown) (unknown) (no (unknown) (unknown) 04:00 07/14/22 (units (unknown) date) unknown) (unknown) (no (unknown) (unknown) 04:00 (units (unkno wn) date) unknown) (unknown) (no (unknown) (unknown) 05:00 07/14/22 (units (unknown) date) unknown) (unknown) (no (unknown) (unknown) 05:00 (units (unkno wn) date) unknown) (unknown) (no (unknown) (unknown) 06:00 07/14/22 (units (unknown) date) unknown) (unknown) (no (unknown) (unknown) 06:28 (units (unkno wn) date) unknown) (unknown) (no (unknown) (unknown) 07:01 07/14/22 (units (unknown) date) unknown) (unknown) (no (unknown) (unknown) 07:52 (units (unkno wn) date) unknown) (unknown) (no (unknown) (unknown) 08:00 07/14/22 (units (unknown) date) unknown) (unknown) (no (unknown) (unknown) 08:20 (units (unkno wn) date) unknown) (unknown) (no (unknown) (unknown) 08:50 15:28 08:20 (units (unknown) date) unknown) (unknown) (no (unknown) (unknown) 09:00 07/14/22 (units (unknown) date) unknown) (unknown) (no (unknown) (unknown) 09:00 (units (unkno wn) date) unknown) (unknown) (no (unknown) (unknown) 09:12 (units (unkno wn) date) unknown) (unknown) (no (unknown) (unknown) ALT 17 (units (unkno wn) date) unknown) (unknown) (no (unknown) (unknown) ALT 19 (units (unkno wn) date) unknown) (unknown) (no (unknown) (unknown) AST 45 H (units (unkno wn) date) unknown) (unknown) (no (unknown) (unknown) AST 52 H (units (unkno wn) date) unknown) (unknown) (no (unknown) (unknown) Abd: soft, (units (unk nown) date) non-tender, unknown) normoactive BTs (unknown) (no (unknown) (unknown) Acute alcohol (units ( unknown) date) intoxication and unknown) withdrawal, present on admission (unknown) (no (unknown) (unknown) Age/Sex: 31 / F (units (unknown) date) unknown) (unknown) (no (unknown) (unknown) Albumin 3.5 (units (un known) date) unknown) (unknown) (no (unknown) (unknown) Albumin/Globulin (units (unknown) date) Ratio 1.3 unknown) (unknown) (no (unknown) (unknown) Alcohol withdrawal (units (unknown) date) delirium, acute, unknown) hyperactive (unknown) (no (unknown) (unknown) Alcoholism (units (unk nown) date) unknown) (unknown) (no (unknown) (unknown) Alkaline (units (unkno wn) date) Phosphatase 68 unknown) (unknown) (no (unknown) (unknown) Alkaline (units (unkno wn) date) Phosphatase 75 unknown) (unknown) (no (unknown) (unknown) Anemia (-2018) (units (unknown) date) unknown) (unknown) (no (unknown) (unknown) Assessment + Plan (units (unknown) date) narrative: unknown) (unknown) (no (unknown) (unknown) Assessment + Plan (units (unknown) date) unknown) (unknown) (no (unknown) (unknown) BUN 11 (units (unkno wn) date) unknown) (unknown) (no (unknown) (unknown) BUN 5 L (units (unkno wn) date) unknown) (unknown) (no (unknown) (unknown) BUN/Creatinine (units (unknown) date) Ratio 16.4 unknown) (unknown) (no (unknown) (unknown) BUN/Creatinine (units (unknown) date) Ratio 7.9 unknown) (unknown) (no (unknown) (unknown) Baso # (Auto) 0 (units (unknown) date) unknown) (unknown) (no (unknown) (unknown) Baso # (Auto) (units ( unknown) date) unknown) (unknown) (no (unknown) (unknown) Baso % (Auto) 0.8 (units (unknown) date) unknown) (unknown) (no (unknown) (unknown) Baso % (Auto) (units ( unknown) date) unknown) (unknown) (no (unknown) (unknown) Blood Pressure (units (unknown) date) 105/75 unknown) (unknown) (no (unknown) (unknown) Blood Pressure (units (unknown) date) 107/75 unknown) (unknown) (no (unknown) (unknown) Blood Pressure (units (unknown) date) 109/74 110/75 unknown) (unknown) (no (unknown) (unknown) Blood Pressure (units (unknown) date) 110/79 112/63 unknown) (unknown) (no (unknown) (unknown) Blood Pressure (units (unknown) date) 113/81 unknown) (unknown) (no (unknown) (unknown) Blood Pressure (units (unknown) date) 114/78 unknown) (unknown) (no (unknown) (unknown) Blood Pressure (units (unknown) date) unknown) (unknown) (no (unknown) (unknown) CV: heart sounds (units (unknown) date) normal, no murmur unknown) or rubs (unknown) (no (unknown) (unknown) Calcium 8.1 L (units ( unknown) date) unknown) (unknown) (no (unknown) (unknown) Calcium 8.5 (units (un known) date) unknown) (unknown) (no (unknown) (unknown) Carbon Dioxide 27 (units (unknown) date) unknown) (unknown) (no (unknown) (unknown) Carbon Dioxide 28 (units (unknown) date) unknown) (unknown) (no (unknown) (unknown) Chloride 100 (units (u nknown) date) unknown) (unknown) (no (unknown) (unknown) Chloride 101 (units (u nknown) date) unknown) (unknown) (no (unknown) (unknown) Code status: (units (u nknown) date) patient unable to unknown) state, presumed to be full code. (unknown) (no (unknown) (unknown) Consultants? None (units (unknown) date) unknown) (unknown) (no (unknown) (unknown) Creatinine 0.63 (units (unknown) date) unknown) (unknown) (no (unknown) (unknown) Creatinine 0.67 (units (unknown) date) unknown) (unknown) (no (unknown) (unknown) Critical Care (units ( unknown) date) time: unknown) (unknown) (no (unknown) (unknown) : 1990 (units (unknown) date) Acct:[id number] unknown) (unknown) (no (unknown) (unknown) Date of Service: (units (unknown) date) 07/13/22 unknown) (unknown) (no (unknown) (unknown) Deep Vein (units (unkn own) date) Thrombosis/Pulmonar unknown) y Embolism Present on Admission: No (unknown) (no (unknown) (unknown) Discussion of (units ( unknown) date) results, plan of unknown) care with independent HCP/other: ED provider (unknown) (no (unknown) (unknown) Dispo: home vs (units (unknown) date) rehab unknown) (unknown) (no (unknown) (unknown) Eos # (Auto) 100 (units (unknown) date) unknown) (unknown) (no (unknown) (unknown) Eos # (Auto) (units (u nknown) date) unknown) (unknown) (no (unknown) (unknown) Eos % (Auto) 2.4 (units (unknown) date) unknown) (unknown) (no (unknown) (unknown) Eos % (Auto) (units (u nknown) date) unknown) (unknown) (no (unknown) (unknown) Estimated GFR > 60 (units (unknown) date) unknown) (unknown) (no (unknown) (unknown) Exam Narrative: (units (unknown) date) unknown) (unknown) (no (unknown) (unknown) Exam (units (unkno wn) date) unknown) (unknown) (no (unknown) (unknown) Extremities: moves (units (unknown) date) all 4 extremities unknown) (unknown) (no (unknown) (unknown) FEN: IV fluids: NS (units (unknown) date) at 100 ml/hour, unknown) diet: general, labs: CBC, C/BMP, liver (unknown) (no (unknown) (unknown) Family History (units (unknown) date) (Reviewed 07/13/22 unknown) @ 06:49 by LYUDMILA Borden) (unknown) (no (unknown) (unknown) Family/Other (units (u nknown) date) Alcoholism unknown) (unknown) (no (unknown) (unknown) Family/Other (units (u nknown) date) Diabetes mellitus unknown) (unknown) (no (unknown) (unknown) Father Alcoholism (units (unknown) date) unknown) (unknown) (no (unknown) (unknown) Gen: Arousable, (units (unknown) date) female, NAD unknown) (unknown) (no (unknown) (unknown) Globulin 2.7 (units (u nknown) date) unknown) (unknown) (no (unknown) (unknown) Glucose 138 H (units ( unknown) date) unknown) (unknown) (no (unknown) (unknown) Glucose 95 (units (unk nown) date) unknown) (unknown) (no (unknown) (unknown) Grandfather [...] extraction () unknown) (unknown) (no (unknown) (unknown) HEENT: (units (unkno wn) date) normocephalic, unknown) atraumatic, conjunctiva clear, pinpoint pupils, sclera (unknown) (no (unknown) (unknown) Hct 30.0 L (units (unk nown) date) unknown) (unknown) (no (unknown) (unknown) Hct (units (unkno wn) date) unknown) (unknown) (no (unknown) (unknown) Hgb 10.2 L (units (unk nown) date) unknown) (unknown) (no (unknown) (unknown) Hgb (units (unkno wn) date) unknown) (unknown) (no (unknown) (unknown) I confirm the (units (u nknown) date) patient?s Advance unknown) Care Plan is present, Code status is documented, (unknown) (no (unknown) (unknown) I spent a total of (units (unknown) date) [] minutes of unknown) critical care time on this patient's care (unknown) (no (unknown) (unknown) Insomnia (units (unkno wn) date) unknown) (unknown) (no (unknown) (unknown) Interval history: (units (unknown) date) unknown) (unknown) (no (unknown) (unknown) [facility] (units (unknown) date) [address] unknown) [place] [address] (unknown) (no (unknown) (unknown) Laboratory Results (units (unknown) date) - last 24 hr unknown) (unknown) (no (unknown) (unknown) Labs (units (unkno wn) date) unknown) (unknown) (no (unknown) (unknown) Labs: (units (unkno wn) date) unknown) (unknown) (no (unknown) (unknown) Lymph # (Auto) (units (unknown) date) 1100 unknown) (unknown) (no (unknown) (unknown) Lymph # (Auto) (units (unknown) date) unknown) (unknown) (no (unknown) (unknown) Lymph % (Auto) (units (unknown) date) 30.8 unknown) (unknown) (no (unknown) (unknown) Lymph % (Auto) (units (unknown) date) unknown) (unknown) (no (unknown) (unknown) MCH 26.5 (units (unkno wn) date) unknown) (unknown) (no (unknown) (unknown) MCH (units (unkno wn) date) unknown) (unknown) (no (unknown) (unknown) MCHC 34.1 (units (unkn own) date) unknown) (unknown) (no (unknown) (unknown) MCHC (units (unkno wn) date) unknown) (unknown) (no (unknown) (unknown) MCV 77.8 L (units (unk nown) date) unknown) (unknown) (no (unknown) (unknown) MCV (units (unkno wn) date) unknown) (unknown) (no (unknown) (unknown) MIPS - Admit (units (u nknown) date) unknown) (unknown) (no (unknown) (unknown) MIPS - DC (units (unkn own) date) unknown) (unknown) (no (unknown) (unknown) Magnesium 1.4 L (units (unknown) date) unknown) (unknown) (no (unknown) (unknown) Magnesium 1.9 (units ( unknown) date) unknown) (unknown) (no (unknown) (unknown) Medical History (units (unknown) date) (Updated 07/13/22 @ unknown) 11:47 by Gerardo Mccormick MD) (unknown) (no (unknown) (unknown) Menometrorrhagia (units (unknown) date) unknown) (unknown) (no (unknown) (unknown) Yates # (Auto) 200 (units (unknown) date) unknown) (unknown) (no (unknown) (unknown) Yates # (Auto) (units ( unknown) date) unknown) (unknown) (no (unknown) (unknown) Yates % (Auto) 5.3 (units (unknown) date) unknown) (unknown) (no (unknown) (unknown) Yates % (Auto) (units ( unknown) date) unknown) (unknown) (no (unknown) (unknown) Mother Diabetes (units (unknown) date) mellitus unknown) (unknown) (no (unknown) (unknown) Narrative (units (unkn own) date) unknown) (unknown) (no (unknown) (unknown) Nasal Screen MRSA (units (unknown) date) (PCR) Not detected unknown) (unknown) (no (unknown) (unknown) Nasal Screen MRSA (units (unknown) date) (PCR) unknown) (unknown) (no (unknown) (unknown) Neck: supple, full (units (unknown) date) ROM, no JVD, unknown) trachea is midline (unknown) (no (unknown) (unknown) Neuro: very (units (un known) date) lethargic and unknown) unable to hold a meaningful conversation, not (unknown) (no (unknown) (unknown) Neut # (Auto) 2100 (units (unknown) date) unknown) (unknown) (no (unknown) (unknown) Neut # (Auto) (units ( unknown) date) unknown) (unknown) (no (unknown) (unknown) Neut % (Auto) 60.7 (units (unknown) date) unknown) (unknown) (no (unknown) (unknown) Neut % (Auto) (units ( unknown) date) unknown) (unknown) (no (unknown) (unknown) Obesity (units (unkno wn) date) unknown) (unknown) (no (unknown) (unknown) Objective (units (unkn own) date) unknown) (unknown) (no (unknown) (unknown) Other independent (units (unknown) date) historians: none unknown) (unknown) (no (unknown) (unknown) Overweight (units (unk nown) date) unknown) (unknown) (no (unknown) (unknown) Oxygen Delivery (units (unknown) date) Method Room Air unknown) (unknown) (no (unknown) (unknown) PFSH (units (unkno wn) date) unknown) (unknown) (no (unknown) (unknown) Patient is admitted (units (unknown) date) to the inpatient unknown) ICU service due to the severity of disease, (unknown) (no (unknown) (unknown) Patient stated that (units (unknown) date) she used to be unknown) sober for about 18 months in the past but had (unknown) (no (unknown) (unknown) Patient: (units (unkno wn) date) Sarah Connors unknown) MR#: M (unknown) (no (unknown) (unknown) Plt Count 116 L (units (unknown) date) unknown) (unknown) (no (unknown) (unknown) Plt Count (units (unkn own) date) unknown) (unknown) (no (unknown) (unknown) Potassium 3.7 (units ( unknown) date) unknown) (unknown) (no (unknown) (unknown) Potassium 4.2 (units ( unknown) date) unknown) (unknown) (no (unknown) (unknown) Progress Note (units ( unknown) date) unknown) (unknown) (no (unknown) (unknown) Provider: (units (unkn own) date) Vanesa Hall unknown) (unknown) (no (unknown) (unknown) Psyche: appears (units (unknown) date) calm, unable to unknown) assess fully (unknown) (no (unknown) (unknown) Pulse Oximetry 97 (units (unknown) date) 98 unknown) (unknown) (no (unknown) (unknown) Pulse Oximetry 97 (units (unknown) date) unknown) (unknown) (no (unknown) (unknown) Pulse Oximetry 98 (units (unknown) date) 97 unknown) (unknown) (no (unknown) (unknown) Pulse Oximetry 98 (units (unknown) date) 98 unknown) (unknown) (no (unknown) (unknown) Pulse Rate 62 63 (units (unknown) date) unknown) (unknown) (no (unknown) (unknown) Pulse Rate 63 61 (units (unknown) date) unknown) (unknown) (no (unknown) (unknown) Pulse Rate 63 (units ( unknown) date) unknown) (unknown) (no (unknown) (unknown) Pulse Rate 66 67 (units (unknown) date) unknown) (unknown) (no (unknown) (unknown) Pulse Rate 67 62 (units (unknown) date) unknown) (unknown) (no (unknown) (unknown) Pulse Rate 68 (units ( unknown) date) unknown) (unknown) (no (unknown) (unknown) Pulse Rate 69 66 (units (unknown) date) unknown) (unknown) (no (unknown) (unknown) RBC 3.85 L (units (unk nown) date) unknown) (unknown) (no (unknown) (unknown) RBC (units (unkno wn) date) unknown) (unknown) (no (unknown) (unknown) RDW 17.5 H (units (unk nown) date) unknown) (unknown) (no (unknown) (unknown) RDW (units (unkno wn) date) unknown) (unknown) (no (unknown) (unknown) Resp: Lungs CTA, (units (unknown) date) non-labored unknown) breathing (unknown) (no (unknown) (unknown) Reviewed outside (units (unknown) date) records: prior ED unknown) records (unknown) (no (unknown) (unknown) S/P myringotomy (units (unknown) date) with insertion of unknown) tube (unknown) (no (unknown) (unknown) SCDs (units (unkno wn) date) unknown) (unknown) (no (unknown) (unknown) (spontaneous (units (unknown) date) vaginal delivery) unknown) (-09/05/18) (unknown) (no (unknown) (unknown) Signed By: (units (unk nown) date) unknown) (unknown) (no (unknown) (unknown) Skin: no lesions (units (unknown) date) or rashes, dry and unknown) intact (unknown) (no (unknown) (unknown) Smoker (units (unkno wn) date) unknown) (unknown) (no (unknown) (unknown) Smoking Status: (units (unknown) date) Former smoker unknown) (unknown) (no (unknown) (unknown) Social History (units (unknown) date) (Reviewed 07/12/22 unknown) @ 17:50 by JulietLYUDMILA Burr) (unknown) (no (unknown) (unknown) Social determinants (units (unknown) date) of health: history unknown) of alcohol abuse, has pre-school children (unknown) (no (unknown) (unknown) Sodium 132 L (units (u nknown) date) unknown) (unknown) (no (unknown) (unknown) Sodium 135 L (units (u nknown) date) unknown) (unknown) (no (unknown) (unknown) Subjective (units (unk nown) date) unknown) (unknown) (no (unknown) (unknown) Surgical History (units (unknown) date) (Reviewed 07/13/22 unknown) @ 06:49 by LYUDMILA Borden) (unknown) (no (unknown) (unknown) Surrogate decision (units (unknown) date) maker is in unknown) patient?s record: No, patient unable to (unknown) (no (unknown) (unknown) The patient has (units (unknown) date) current or prior unknown) documentation of left ventricular ejection (unknown) (no (unknown) (unknown) This is a 31 years (units (unknown) date) old female with unknown) history of alcohol use disorder who presented (unknown) (no (unknown) (unknown) Time Spent With (units (unknown) date) Patient unknown) (unknown) (no (unknown) (unknown) Total Bilirubin (units (unknown) date) 0.7 unknown) (unknown) (no (unknown) (unknown) Total Bilirubin (units (unknown) date) 0.8 unknown) (unknown) (no (unknown) (unknown) Total Protein 6.2 (units (unknown) date) L unknown) (unknown) (no (unknown) (unknown) UTI, acute but (units (unknown) date) asymptomatic unknown) (unknown) (no (unknown) (unknown) VTE Prophylaxis: (units (unknown) date) Wells risk score? X unknown) Enoxaparin 40 mg subQ once daily? Bilateral (unknown) (no (unknown) (unknown) VTE (units (unkno wn) date) unknown) (unknown) (no (unknown) (unknown) Vital Signs (units (un known) date) unknown) (unknown) (no (unknown) (unknown) WBC 3.5 L (units (unkn own) date) unknown) (unknown) (no (unknown) (unknown) WBC (units (unkno wn) date) unknown) (unknown) (no (unknown) (unknown) [Embedded Image (units (unknown) date) Not Available] unknown) (unknown) (no (unknown) (unknown) [X] I have (units (unk nown) date) utilized all unknown) available immediate resources to obtain, update, or (unknown) (no (unknown) (unknown) a dose of oral (units (unknown) date) cephalexin and now unknown) is on cipro IV BID.? Her initial work-up was (unknown) (no (unknown) (unknown) alcohol intake: (units (unknown) date) former unknown) (unknown) (no (unknown) (unknown) answers. (units (unkno wn) date) unknown) (unknown) (no (unknown) (unknown) articulate (units (unk nown) date) preference. unknown) (unknown) (no (unknown) (unknown) at home. (units (unkno wn) date) unknown) (unknown) (no (unknown) (unknown) be severely (units (un known) date) agitated and unknown) restless, presented to ER asking for help with rehab (unknown) (no (unknown) (unknown) but she was deemed (units (unknown) date) to be medically unknown) unstable for transfer to rehab.? Her CIWA (unknown) (no (unknown) (unknown) current (units (unkno wn) date) occupational unknown) exposures/hazards: Yes (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 with Pandemic ) (unknown) (no (unknown) (unknown) drip due to need (units (unknown) date) for continued unknown) sedation. Arousable but not given any valuable (unknown) (no (unknown) (unknown) education level: (units (unknown) date) college unknown) (unknown) (no (unknown) (unknown) enzymes, Mag, (units ( unknown) date) PT/INR unknown) (unknown) (no (unknown) (unknown) renee/zoroastrianism: (units (unknown) date) Buddhist unknown) (unknown) (no (unknown) (unknown) fraction (LVEF) (units (unknown) date) less than 40%, or unknown) moderate or severely depressed left (unknown) (no (unknown) (unknown) household members: (units (unknown) date) children unknown) (unknown) (no (unknown) (unknown) marital status: (units (unknown) date) unknown) (unknown) (no (unknown) (unknown) midnights. (units (unk nown) date) unknown) (unknown) (no (unknown) (unknown) most recent visit (units (unknown) date) with blood alcohol unknown) level in 300s.? Yesterday, she was noted to (unknown) (no (unknown) (unknown) non-icteric, oral (units (unknown) date) mucosa pink and unknown) moist (unknown) (no (unknown) (unknown) notable for blood (units (unknown) date) alcohol level of unknown) 338. ? She is admitted to ICU on Precedex (unknown) (no (unknown) (unknown) number of (units (unkn own) date) children: 1 unknown) (unknown) (no (unknown) (unknown) occupational (units (u nknown) date) status: employed unknown) (unknown) (no (unknown) (unknown) relapsed due to a (units (unknown) date) divorce with her unknown) per previous notes.? She states that (unknown) (no (unknown) (unknown) responding to (units ( unknown) date) questions due to unknown) falling back to sleep (unknown) (no (unknown) (unknown) review of the (units ( unknown) date) patient's current unknown) medications (unknown) (no (unknown) (unknown) risks of further (units (unknown) date) disease progression unknown) and this stay is expected to exceed 2 (unknown) (no (unknown) (unknown) score in the ED was (units (unknown) date) as high as 20.? She unknown) was also found to have UTI and was given (unknown) (no (unknown) (unknown) second hand (units (un known) date) exposure: No unknown) (growing up as a child - not currently) (unknown) (no (unknown) (unknown) several visits to (units (unknown) date) ER department in unknown) May 2022 for similar symptoms including (unknown) (no (unknown) (unknown) she drinks as much (units (unknown) date) as 750 cc of vodka unknown) every day as documented.? She has had (unknown) (no (unknown) (unknown) special renee (units ( unknown) date) needs: No unknown) (unknown) (no (unknown) (unknown) substance use (units ( unknown) date) type: does not use unknown) (unknown) (no (unknown) (unknown) take, unknown if (units (unknown) date) she took. Dose is unknown) 300 mg to be taken at bedtime. (unknown) (no (unknown) (unknown) to ED with acute (units (unknown) date) alcohol unknown) intoxication with symptoms of alcohol withdrawal.? (unknown) (no (unknown) (unknown) today; this time (units (unknown) date) is exclusive of unknown) procedural time. (unknown) (no (unknown) (unknown) ventricular (units (un known) date) systolic function.: unknown) No Result panel 2382 (unknown) (no (unknown) (unknown) (no value) (units (unk nown) date) unknown) (unknown) (no (unknown) (unknown) (past 8 hours): (units (unknown) date) unknown) (unknown) (no (unknown) (unknown) - CIWA protocol (units (unknown) date) and seizure unknown) precautions (unknown) (no (unknown) (unknown) - She has a (units (unk nown) date) prescribed bottle unknown) of seroquel, which ED stated she was encouraged to (unknown) (no (unknown) (unknown) - She is now on (units (unknown) date) Cipro 400 mg IV unknown) every 12 hours (unknown) (no (unknown) (unknown) - She is ordered (units (unknown) date) for a librium tapor unknown) (unknown) (no (unknown) (unknown) - She received (units (unknown) date) multiple doses of unknown) oral ativan, IV was placed in the ED.? (unknown) (no (unknown) (unknown) - She was (units (unkn own) date) administered a 1 unknown) time dose of cephalexin po in the ED (unknown) (no (unknown) (unknown) - She was ordered (units (unknown) date) for a one time dose unknown) of IV phenobarbitol 130 mg X 1 (unknown) (no (unknown) (unknown) - currently in ICU (units (unknown) date) on precedex unknown) infusion (unknown) (no (unknown) (unknown) [id number] (units (unkn own) date) unknown) (unknown) (no (unknown) (unknown) 02:00 07/14/22 (units (unknown) date) unknown) (unknown) (no (unknown) (unknown) 02:08 (units (unkno wn) date) unknown) (unknown) (no (unknown) (unknown) 07/13/22 07/13/22 (units (unknown) date) 07/14/22 unknown) (unknown) (no (unknown) (unknown) 07/14/22 08:20 (units (unknown) date) unknown) (unknown) (no (unknown) (unknown) 07/14/22 0927 (units ( unknown) date) unknown) (unknown) (no (unknown) (unknown) 07/14/22 (units (unkno wn) date) unknown) (unknown) (no (unknown) (unknown) 03:00 07/14/22 (units (unknown) date) unknown) (unknown) (no (unknown) (unknown) 04:00 07/14/22 (units (unknown) date) unknown) (unknown) (no (unknown) (unknown) 04:00 (units (unkno wn) date) unknown) (unknown) (no (unknown) (unknown) 05:00 07/14/22 (units (unknown) date) unknown) (unknown) (no (unknown) (unknown) 05:00 (units (unkno wn) date) unknown) (unknown) (no (unknown) (unknown) 06:00 07/14/22 (units (unknown) date) unknown) (unknown) (no (unknown) (unknown) 06:28 (units (unkno wn) date) unknown) (unknown) (no (unknown) (unknown) 07:01 07/14/22 (units (unknown) date) unknown) (unknown) (no (unknown) (unknown) 07:52 (units (unkno wn) date) unknown) (unknown) (no (unknown) (unknown) 08:00 07/14/22 (units (unknown) date) unknown) (unknown) (no (unknown) (unknown) 08:20 (units (unkno wn) date) unknown) (unknown) (no (unknown) (unknown) 08:50 15:28 08:20 (units (unknown) date) unknown) (unknown) (no (unknown) (unknown) 09:00 07/14/22 (units (unknown) date) unknown) (unknown) (no (unknown) (unknown) 09:00 (units (unkno wn) date) unknown) (unknown) (no (unknown) (unknown) 09:12 (units (unkno wn) date) unknown) (unknown) (no (unknown) (unknown) ALT 17 (units (unkno wn) date) unknown) (unknown) (no (unknown) (unknown) ALT 19 (units (unkno wn) date) unknown) (unknown) (no (unknown) (unknown) AST 45 H (units (unkno wn) date) unknown) (unknown) (no (unknown) (unknown) AST 52 H (units (unkno wn) date) unknown) (unknown) (no (unknown) (unknown) Abd: soft, (units (unk nown) date) non-tender, unknown) normoactive BTs (unknown) (no (unknown) (unknown) Acute alcohol (units ( unknown) date) intoxication and unknown) withdrawal, present on admission (unknown) (no (unknown) (unknown) Age/Sex: 31 / F (units (unknown) date) unknown) (unknown) (no (unknown) (unknown) Albumin 3.5 (units (un known) date) unknown) (unknown) (no (unknown) (unknown) Albumin/Globulin (units (unknown) date) Ratio 1.3 unknown) (unknown) (no (unknown) (unknown) Alcohol withdrawal (units (unknown) date) delirium, acute, unknown) hyperactive (unknown) (no (unknown) (unknown) Alcoholism (units (unk nown) date) unknown) (unknown) (no (unknown) (unknown) Alkaline (units (unkno wn) date) Phosphatase 68 unknown) (unknown) (no (unknown) (unknown) Alkaline (units (unkno wn) date) Phosphatase 75 unknown) (unknown) (no (unknown) (unknown) Anemia (-2018) (units (unknown) date) unknown) (unknown) (no (unknown) (unknown) Assessment + Plan (units (unknown) date) narrative: unknown) (unknown) (no (unknown) (unknown) Assessment + Plan (units (unknown) date) unknown) (unknown) (no (unknown) (unknown) BUN 11 (units (unkno wn) date) unknown) (unknown) (no (unknown) (unknown) BUN 5 L (units (unkno wn) date) unknown) (unknown) (no (unknown) (unknown) BUN/Creatinine (units (unknown) date) Ratio 16.4 unknown) (unknown) (no (unknown) (unknown) BUN/Creatinine (units (unknown) date) Ratio 7.9 unknown) (unknown) (no (unknown) (unknown) Baso # (Auto) 0 (units (unknown) date) unknown) (unknown) (no (unknown) (unknown) Baso # (Auto) (units ( unknown) date) unknown) (unknown) (no (unknown) (unknown) Baso % (Auto) 0.8 (units (unknown) date) unknown) (unknown) (no (unknown) (unknown) Baso % (Auto) (units ( unknown) date) unknown) (unknown) (no (unknown) (unknown) Blood Pressure (units (unknown) date) 105/75 unknown) (unknown) (no (unknown) (unknown) Blood Pressure (units (unknown) date) 107/75 unknown) (unknown) (no (unknown) (unknown) Blood Pressure (units (unknown) date) 109/74 110/75 unknown) (unknown) (no (unknown) (unknown) Blood Pressure (units (unknown) date) 110/79 112/63 unknown) (unknown) (no (unknown) (unknown) Blood Pressure (units (unknown) date) 113/81 unknown) (unknown) (no (unknown) (unknown) Blood Pressure (units (unknown) date) 114/78 unknown) (unknown) (no (unknown) (unknown) Blood Pressure (units (unknown) date) unknown) (unknown) (no (unknown) (unknown) CV: heart sounds (units (unknown) date) normal, no murmur unknown) or rubs (unknown) (no (unknown) (unknown) Calcium 8.1 L (units ( unknown) date) unknown) (unknown) (no (unknown) (unknown) Calcium 8.5 (units (un known) date) unknown) (unknown) (no (unknown) (unknown) Carbon Dioxide 27 (units (unknown) date) unknown) (unknown) (no (unknown) (unknown) Carbon Dioxide 28 (units (unknown) date) unknown) (unknown) (no (unknown) (unknown) Chloride 100 (units (u nknown) date) unknown) (unknown) (no (unknown) (unknown) Chloride 101 (units (u nknown) date) unknown) (unknown) (no (unknown) (unknown) Code status is (units (unknown) date) documented, unknown) Surrogate decision maker is in patient?s record: No, (unknown) (no (unknown) (unknown) Code status: (units (u nknown) date) patient unable to unknown) state, presumed to be full code. (unknown) (no (unknown) (unknown) Creatinine 0.63 (units (unknown) date) unknown) (unknown) (no (unknown) (unknown) Creatinine 0.67 (units (unknown) date) unknown) (unknown) (no (unknown) (unknown) Critical Care (units ( unknown) date) time: unknown) (unknown) (no (unknown) (unknown) : 1990 (units (unknown) date) Acct:[id number] unknown) (unknown) (no (unknown) (unknown) Date of Service: (units (unknown) date) 07/13/22 unknown) (unknown) (no (unknown) (unknown) Dispo: home vs (units (unknown) date) rehab unknown) (unknown) (no (unknown) (unknown) Eos # (Auto) 100 (units (unknown) date) unknown) (unknown) (no (unknown) (unknown) Eos # (Auto) (units (u nknown) date) unknown) (unknown) (no (unknown) (unknown) Eos % (Auto) 2.4 (units (unknown) date) unknown) (unknown) (no (unknown) (unknown) Eos % (Auto) (units (u nknown) date) unknown) (unknown) (no (unknown) (unknown) Estimated GFR > 60 (units (unknown) date) unknown) (unknown) (no (unknown) (unknown) Exam Narrative: (units (unknown) date) unknown) (unknown) (no (unknown) (unknown) Exam (units (unkno wn) date) unknown) (unknown) (no (unknown) (unknown) Extremities: moves (units (unknown) date) all 4 extremities unknown) (unknown) (no (unknown) (unknown) Family History (units (unknown) date) (Reviewed 07/13/22 unknown) @ 06:49 by LYUDMILA Borden) (unknown) (no (unknown) (unknown) Family/Other (units (u nknown) date) Alcoholism unknown) (unknown) (no (unknown) (unknown) Family/Other (units (u nknown) date) Diabetes mellitus unknown) (unknown) (no (unknown) (unknown) Father Alcoholism (units (unknown) date) unknown) (unknown) (no (unknown) (unknown) Follow labs and (units (unknown) date) clinically. unknown) (unknown) (no (unknown) (unknown) Gen: Arousable, (units (unknown) date) female, NAD unknown) (unknown) (no (unknown) (unknown) Globulin 2.7 (units (u nknown) date) unknown) (unknown) (no (unknown) (unknown) Glucose 138 H (units ( unknown) date) unknown) (unknown) (no (unknown) (unknown) Glucose 95 (units (unk nown) date) unknown) (unknown) (no (unknown) (unknown) Grandfather [...] extraction () unknown) (unknown) (no (unknown) (unknown) HEENT: (units (unkno wn) date) normocephalic, unknown) atraumatic, conjunctiva clear, pinpoint pupils, sclera (unknown) (no (unknown) (unknown) Hct 30.0 L (units (unk nown) date) unknown) (unknown) (no (unknown) (unknown) Hct (units (unkno wn) date) unknown) (unknown) (no (unknown) (unknown) Hgb 10.2 L (units (unk nown) date) unknown) (unknown) (no (unknown) (unknown) Hgb (units (unkno wn) date) unknown) (unknown) (no (unknown) (unknown) I spent a total of (units (unknown) date) [] minutes of unknown) critical care time on this patient's care (unknown) (no (unknown) (unknown) Insomnia (units (unkno wn) date) unknown) (unknown) (no (unknown) (unknown) Interval history: (units (unknown) date) unknown) (unknown) (no (unknown) (unknown) [facility] (units (unknown) date) [address] unknown) [place] [address] (unknown) (no (unknown) (unknown) Laboratory Results (units (unknown) date) - last 24 hr unknown) (unknown) (no (unknown) (unknown) Labs (units (unkno wn) date) unknown) (unknown) (no (unknown) (unknown) Labs: (units (unkno wn) date) unknown) (unknown) (no (unknown) (unknown) Lymph # (Auto) (units (unknown) date) 1100 unknown) (unknown) (no (unknown) (unknown) Lymph # (Auto) (units (unknown) date) unknown) (unknown) (no (unknown) (unknown) Lymph % (Auto) (units (unknown) date) 30.8 unknown) (unknown) (no (unknown) (unknown) Lymph % (Auto) (units (unknown) date) unknown) (unknown) (no (unknown) (unknown) MCH 26.5 (units (unkno wn) date) unknown) (unknown) (no (unknown) (unknown) MCH (units (unkno wn) date) unknown) (unknown) (no (unknown) (unknown) MCHC 34.1 (units (unkn own) date) unknown) (unknown) (no (unknown) (unknown) MCHC (units (unkno wn) date) unknown) (unknown) (no (unknown) (unknown) MCV 77.8 L (units (unk nown) date) unknown) (unknown) (no (unknown) (unknown) MCV (units (unkno wn) date) unknown) (unknown) (no (unknown) (unknown) Magnesium 1.4 L (units (unknown) date) unknown) (unknown) (no (unknown) (unknown) Magnesium 1.9 (units ( unknown) date) unknown) (unknown) (no (unknown) (unknown) Medical History (units (unknown) date) (Updated 07/13/22 @ unknown) 11:47 by Gerardo Mccormick MD) (unknown) (no (unknown) (unknown) Menometrorrhagia (units (unknown) date) unknown) (unknown) (no (unknown) (unknown) Yates # (Auto) 200 (units (unknown) date) unknown) (unknown) (no (unknown) (unknown) Yates # (Auto) (units ( unknown) date) unknown) (unknown) (no (unknown) (unknown) Yates % (Auto) 5.3 (units (unknown) date) unknown) (unknown) (no (unknown) (unknown) Yates % (Auto) (units ( unknown) date) unknown) (unknown) (no (unknown) (unknown) Mother Diabetes (units (unknown) date) mellitus unknown) (unknown) (no (unknown) (unknown) Narrative (units (unkn own) date) unknown) (unknown) (no (unknown) (unknown) Nasal Screen MRSA (units (unknown) date) (PCR) Not detected unknown) (unknown) (no (unknown) (unknown) Nasal Screen MRSA (units (unknown) date) (PCR) unknown) (unknown) (no (unknown) (unknown) Neck: supple, full (units (unknown) date) ROM, no JVD, unknown) trachea is midline (unknown) (no (unknown) (unknown) Neuro: very (units (un known) date) lethargic and unknown) unable to hold a meaningful conversation, not (unknown) (no (unknown) (unknown) Neut # (Auto) 2100 (units (unknown) date) unknown) (unknown) (no (unknown) (unknown) Neut # (Auto) (units ( unknown) date) unknown) (unknown) (no (unknown) (unknown) Neut % (Auto) 60.7 (units (unknown) date) unknown) (unknown) (no (unknown) (unknown) Neut % (Auto) (units ( unknown) date) unknown) (unknown) (no (unknown) (unknown) Obesity (units (unkno wn) date) unknown) (unknown) (no (unknown) (unknown) Objective (units (unkn own) date) unknown) (unknown) (no (unknown) (unknown) Overweight (units (unk nown) date) unknown) (unknown) (no (unknown) (unknown) Oxygen Delivery (units (unknown) date) Method Room Air unknown) (unknown) (no (unknown) (unknown) PFSH (units (unkno wn) date) unknown) (unknown) (no (unknown) (unknown) Patient stated that (units (unknown) date) she used to be unknown) sober for about 18 months in the past but had (unknown) (no (unknown) (unknown) Patient: (units (unkno wn) date) Sarah Connors unknown) MR#: M (unknown) (no (unknown) (unknown) Plt Count 116 L (units (unknown) date) unknown) (unknown) (no (unknown) (unknown) Plt Count (units (unkn own) date) unknown) (unknown) (no (unknown) (unknown) Potassium 3.7 (units ( unknown) date) unknown) (unknown) (no (unknown) (unknown) Potassium 4.2 (units ( unknown) date) unknown) (unknown) (no (unknown) (unknown) Progress Note (units ( unknown) date) unknown) (unknown) (no (unknown) (unknown) Provider: (units (unkn own) date) Vanesa Hall unknown) (unknown) (no (unknown) (unknown) Psyche: appears (units (unknown) date) calm, unable to unknown) assess fully (unknown) (no (unknown) (unknown) Pulse Oximetry 97 (units (unknown) date) 98 unknown) (unknown) (no (unknown) (unknown) Pulse Oximetry 97 (units (unknown) date) unknown) (unknown) (no (unknown) (unknown) Pulse Oximetry 98 (units (unknown) date) 97 unknown) (unknown) (no (unknown) (unknown) Pulse Oximetry 98 (units (unknown) date) 98 unknown) (unknown) (no (unknown) (unknown) Pulse Rate 62 63 (units (unknown) date) unknown) (unknown) (no (unknown) (unknown) Pulse Rate 63 61 (units (unknown) date) unknown) (unknown) (no (unknown) (unknown) Pulse Rate 63 (units ( unknown) date) unknown) (unknown) (no (unknown) (unknown) Pulse Rate 66 67 (units (unknown) date) unknown) (unknown) (no (unknown) (unknown) Pulse Rate 67 62 (units (unknown) date) unknown) (unknown) (no (unknown) (unknown) Pulse Rate 68 (units ( unknown) date) unknown) (unknown) (no (unknown) (unknown) Pulse Rate 69 66 (units (unknown) date) unknown) (unknown) (no (unknown) (unknown) RBC 3.85 L (units (unk nown) date) unknown) (unknown) (no (unknown) (unknown) RBC (units (unkno wn) date) unknown) (unknown) (no (unknown) (unknown) RDW 17.5 H (units (unk n) date) unknown) (unknown) (no (unknown) (unknown) RDW (units (unkno wn) date) unknown) (unknown) (no (unknown) (unknown) Resp: Lungs CTA, (units (unknown) date) non-labored unknown) breathing (unknown) (no (unknown) (unknown) S/P myringotomy (units (unknown) date) with insertion of unknown) tube (unknown) (no (unknown) (unknown) SCDs (units (unkno wn) date) unknown) (unknown) (no (unknown) (unknown) (spontaneous (units (unknown) date) vaginal delivery) unknown) (-09/05/18) (unknown) (no (unknown) (unknown) Signed (units (o wn) date) By:<Electronically unknown) signed by Vanesa Hall MD> (unknown) (no (unknown) (unknown) Skin: no lesions (units (unknown) date) or rashes, dry and unknown) intact (unknown) (no (unknown) (unknown) Smoker (units (unkno wn) date) unknown) (unknown) (no (unknown) (unknown) Smoking Status: (units (unknown) date) Former smoker unknown) (unknown) (no (unknown) (unknown) Social History (units (unknown) date) (Reviewed 07/12/22 unknown) @ 17:50 by LYUDMILA Do) (unknown) (no (unknown) (unknown) Sodium 132 L (units (u nknown) date) unknown) (unknown) (no (unknown) (unknown) Sodium 135 L (units (u nknown) date) unknown) (unknown) (no (unknown) (unknown) Subjective (units (unk nown) date) unknown) (unknown) (no (unknown) (unknown) Surgical History (units (unknown) date) (Reviewed 07/13/22 unknown) @ 06:49 by LYUDMILA Borden) (unknown) (no (unknown) (unknown) This is a 31 years (units (unknown) date) old female with unknown) history of alcohol use disorder who presented (unknown) (no (unknown) (unknown) Time Spent With (units (unknown) date) Patient unknown) (unknown) (no (unknown) (unknown) Total Bilirubin (units (unknown) date) 0.7 unknown) (unknown) (no (unknown) (unknown) Total Bilirubin (units (unknown) date) 0.8 unknown) (unknown) (no (unknown) (unknown) Total Protein 6.2 (units (unknown) date) L unknown) (unknown) (no (unknown) (unknown) UTI, acute but (units (unknown) date) asymptomatic unknown) (unknown) (no (unknown) (unknown) VTE Prophylaxis: (units (unknown) date) Wells risk score? X unknown) Enoxaparin 40 mg subQ once daily? Bilateral (unknown) (no (unknown) (unknown) Vital Signs (units (un known) date) unknown) (unknown) (no (unknown) (unknown) WBC 3.5 L (units (unkn own) date) unknown) (unknown) (no (unknown) (unknown) WBC (units (unkno wn) date) unknown) (unknown) (no (unknown) (unknown) [Embedded Image (units (unknown) date) Not Available] unknown) (unknown) (no (unknown) (unknown) a dose of oral (units (unknown) date) cephalexin and now unknown) is on cipro IV BID.? Her initial work-up was (unknown) (no (unknown) (unknown) alcohol intake: (units (unknown) date) former unknown) (unknown) (no (unknown) (unknown) answers. (units (unkno wn) date) unknown) (unknown) (no (unknown) (unknown) be severely (units (un known) date) agitated and unknown) restless, presented to ER asking for help with rehab (unknown) (no (unknown) (unknown) but she was deemed (units (unknown) date) to be medically unknown) unstable for transfer to rehab.? Her CIWA (unknown) (no (unknown) (unknown) current (units (unkno wn) date) occupational unknown) exposures/hazards: Yes (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 with Pandemic ) (unknown) (no (unknown) (unknown) drip due to need (units (unknown) date) for continued unknown) sedation. Arousable but not given any valuable (unknown) (no (unknown) (unknown) education level: (units (unknown) date) college unknown) (unknown) (no (unknown) (unknown) renee/zoroastrianism: (units (unknown) date) Buddhist unknown) (unknown) (no (unknown) (unknown) household members: (units (unknown) date) children unknown) (unknown) (no (unknown) (unknown) marital status: (units (unknown) date) unknown) (unknown) (no (unknown) (unknown) most recent visit (units (unknown) date) with blood alcohol unknown) level in 300s.? Yesterday, she was noted to (unknown) (no (unknown) (unknown) non-icteric, oral (units (unknown) date) mucosa pink and unknown) moist (unknown) (no (unknown) (unknown) notable for blood (units (unknown) date) alcohol level of unknown) 338. ? She is admitted to ICU on Precedex (unknown) (no (unknown) (unknown) number of (units (unkn own) date) children: 1 unknown) (unknown) (no (unknown) (unknown) occupational (units (u nknown) date) status: employed unknown) (unknown) (no (unknown) (unknown) patient unable to (units (unknown) date) articulate unknown) preference. (unknown) (no (unknown) (unknown) relapsed due to a (units (unknown) date) divorce with her unknown) per previous notes.? She states that (unknown) (no (unknown) (unknown) responding to (units ( unknown) date) questions due to unknown) falling back to sleep (unknown) (no (unknown) (unknown) score in the ED was (units (unknown) date) as high as 20.? She unknown) was also found to have UTI and was given (unknown) (no (unknown) (unknown) second hand (units (un known) date) exposure: No unknown) (growing up as a child - not currently) (unknown) (no (unknown) (unknown) several visits to (units (unknown) date) ER department in unknown) May 2022 for similar symptoms including (unknown) (no (unknown) (unknown) she drinks as much (units (unknown) date) as 750 cc of vodka unknown) every day as documented.? She has had (unknown) (no (unknown) (unknown) special renee (units ( unknown) date) needs: No unknown) (unknown) (no (unknown) (unknown) substance use (units ( unknown) date) type: does not use unknown) (unknown) (no (unknown) (unknown) take, unknown if (units (unknown) date) she took. Dose is unknown) 300 mg to be taken at bedtime. (unknown) (no (unknown) (unknown) to ED with acute (units (unknown) date) alcohol unknown) intoxication with symptoms of alcohol withdrawal.? (unknown) (no (unknown) (unknown) today; this time (units (unknown) date) is exclusive of unknown) procedural time. Result panel [id number] (unknown) (no (unknown) (unknown) (no value) (units (unk nown) date) unknown) (unknown) (no (unknown) (unknown) # CODE STATUS: (units (unknown) date) Full code unknown) (unknown) (no (unknown) (unknown) # Disposition: (units (unknown) date) Admit to ICU. May unknown) downgrade to [facility] telemetry floor if CIWA (unknown) (no (unknown) (unknown) # FEN: Regular (units (unknown) date) diet. C/w IVF (D5 unknown) 1/2 NS@100cc/hr). Aggressively replace Mg, K (unknown) (no (unknown) (unknown) # Glucose: Fairly (units (unknown) date) controlled. BG goal unknown) 120-180 (unknown) (no (unknown) (unknown) # Lines/tubes: PIV (units (unknown) date) unknown) (unknown) (no (unknown) (unknown) # Prophylaxis: (units (unknown) date) Lovenox 40 mg subcu unknown) for DVT prophylaxis, Pepcid for stress ulcer (unknown) (no (unknown) (unknown) (1) Alcohol (units (un known) date) withdrawal unknown) delirium, acute, hyperactive: (unknown) (no (unknown) (unknown) (2) Alcohol use (units (unknown) date) disorder: unknown) (unknown) (no (unknown) (unknown) (3) Acute (units (unkn own) date) cystitis: unknown) (unknown) (no (unknown) (unknown) (past 8 hours): (units (unknown) date) unknown) (unknown) (no (unknown) (unknown) - Agree with rest (units (unknown) date) of the management unknown) per primary team. D/w Primary hospitalist. (unknown) (no (unknown) (unknown) - C/w aspiration (units (unknown) date) and seizure unknown) precautions, Currently NPO due to severe (unknown) (no (unknown) (unknown) - Consult social (units (unknown) date) services to arrange unknown) for appropriate referral for detox program. (unknown) (no (unknown) (unknown) - Continue IV (units ( unknown) date) Ativan 4-10 mg unknown) every 15 min PRN with goal to keep CIWA <8 per (unknown) (no (unknown) (unknown) - Continue IV (units ( unknown) date) antibiotics x 3 unknown) days. Follow up and adjust antibiotics according (unknown) (no (unknown) (unknown) - Continue alcohol (units (unknown) date) withdrawal protocol unknown) including monitoring by CIWA score. C/w (unknown) (no (unknown) (unknown) - Has relapsed and (units (unknown) date) falied rehab. unknown) Consult social media intern to arrange for (unknown) (no (unknown) (unknown) - If unable to (units (unknown) date) keep CIWA less than unknown) 12, may use phenobarbital 130 mg IV/IM as (unknown) (no (unknown) (unknown) - Order US of (units ( unknown) date) abdomen to evaluate unknown) for liver cirrhosis. (unknown) (no (unknown) (unknown) - Received (units (unk nown) date) thiamine 100 mg IV, unknown) total 6 mg of Ativan IV, Librium 50 mg PO, and (unknown) (no (unknown) (unknown) - She is able to (units (unknown) date) protect his airway, unknown) does not need endotracheal intubation at (unknown) (no (unknown) (unknown) - Start Librium 50 (units (unknown) date) mg PO QID if and unknown) when able to tolerate PO meds. (unknown) (no (unknown) (unknown) - Still has room (units (unknown) date) to administer more unknown) BZPs and phenobarbital. Order Phenobarbital (unknown) (no (unknown) (unknown) - Use Precedex gtt (units (unknown) date) only for refractory unknown) DTs despite on aggressive treatment with (unknown) (no (unknown) (unknown) 0.2 MCG/KG/HR (units ( unknown) date) unknown) (unknown) (no (unknown) (unknown) [id number] (units (unkn own) date) unknown) (unknown) (no (unknown) (unknown) 02:00 07/14/22 (units (unknown) date) unknown) (unknown) (no (unknown) (unknown) 02:08 (units (unkno wn) date) unknown) (unknown) (no (unknown) (unknown) 07/13/22 07/14/22 (units (unknown) date) 07/14/22 unknown) (unknown) (no (unknown) (unknown) 07/13/22] (units (unkn own) date) unknown) (unknown) (no (unknown) (unknown) 07/14/22 08:20 (units (unknown) date) unknown) (unknown) (no (unknown) (unknown) 07/14/22 09:10 (units (unknown) date) unknown) (unknown) (no (unknown) (unknown) 07/14/22 (units (unkno wn) date) unknown) (unknown) (no (unknown) (unknown) 03:00 07/14/22 (units (unknown) date) unknown) (unknown) (no (unknown) (unknown) 04:00 07/14/22 (units (unknown) date) unknown) (unknown) (no (unknown) (unknown) 04:00 (units (unkno wn) date) unknown) (unknown) (no (unknown) (unknown) 05:00 07/14/22 (units (unknown) date) unknown) (unknown) (no (unknown) (unknown) 05:00 (units (unkno wn) date) unknown) (unknown) (no (unknown) (unknown) 06:00 07/14/22 (units (unknown) date) unknown) (unknown) (no (unknown) (unknown) 06:28 (units (unkno wn) date) unknown) (unknown) (no (unknown) (unknown) 07:01 07/14/22 (units (unknown) date) unknown) (unknown) (no (unknown) (unknown) 07:52 (units (unkno wn) date) unknown) (unknown) (no (unknown) (unknown) 08:00 07/14/22 (units (unknown) date) unknown) (unknown) (no (unknown) (unknown) 09:00 07/14/22 (units (unknown) date) unknown) (unknown) (no (unknown) (unknown) 09:00 (units (unkno wn) date) unknown) (unknown) (no (unknown) (unknown) 09:12 (units (unkno wn) date) unknown) (unknown) (no (unknown) (unknown) 15:28 08:20 08:20 (units (unknown) date) unknown) (unknown) (no (unknown) (unknown) 60 mg IV BID (units (u nknown) date) scheduled. unknown) (unknown) (no (unknown) (unknown) 67, urinalysis (units (unknown) date) indicated many unknown) bacteria.? As per the bedside nurse, patient (unknown) (no (unknown) (unknown) 97% on room air. (units (unknown) date) She weighs 49.8 kg unknown) with a BMI of 20.1.? WBC is 3.3, hemoglobin (unknown) (no (unknown) (unknown) ALT 17 (units (unkno wn) date) unknown) (unknown) (no (unknown) (unknown) AST 45 H (units (unkno wn) date) unknown) (unknown) (no (unknown) (unknown) Administration (units (unknown) date) unknown) (unknown) (no (unknown) (unknown) Age/Sex: 31 / F (units (unknown) date) unknown) (unknown) (no (unknown) (unknown) Albumin 3.5 (units (un known) date) unknown) (unknown) (no (unknown) (unknown) Albumin/Globulin (units (unknown) date) Ratio 1.3 unknown) (unknown) (no (unknown) (unknown) Alcohol Withdrawal (units (unknown) date) unknown) (unknown) (no (unknown) (unknown) Alkaline (units (unkno wn) date) Phosphatase 68 unknown) (unknown) (no (unknown) (unknown) Assessment + Plan (units (unknown) date) unknown) (unknown) (no (unknown) (unknown) Assessment and (units (unknown) date) plan unknown) (unknown) (no (unknown) (unknown) Awake, oriented x (units (unknown) date) 3, severely unknown) confused, intermittently agitated/restless but (unknown) (no (unknown) (unknown) BUN 5 L (units (unkno wn) date) unknown) (unknown) (no (unknown) (unknown) BUN/Creatinine (units (unknown) date) Ratio 7.9 unknown) (unknown) (no (unknown) (unknown) BZPs + phenobarb. (units (unknown) date) Would discourage unknown) the use of Precedex solely for the treatment (unknown) (no (unknown) (unknown) Baso # (Auto) 0 (units (unknown) date) unknown) (unknown) (no (unknown) (unknown) Baso % (Auto) 0.8 (units (unknown) date) unknown) (unknown) (no (unknown) (unknown) Blood Pressure (units (unknown) date) 105/75 unknown) (unknown) (no (unknown) (unknown) Blood Pressure (units (unknown) date) 107/75 unknown) (unknown) (no (unknown) (unknown) Blood Pressure (units (unknown) date) 109/74 110/75 unknown) (unknown) (no (unknown) (unknown) Blood Pressure (units (unknown) date) 110/79 112/63 unknown) (unknown) (no (unknown) (unknown) Blood Pressure (units (unknown) date) 113/81 unknown) (unknown) (no (unknown) (unknown) Blood Pressure (units (unknown) date) 114/78 unknown) (unknown) (no (unknown) (unknown) Blood Pressure (units (unknown) date) unknown) (unknown) (no (unknown) (unknown) Briefly, this is a (units (unknown) date) 31 years old female unknown) with history of alcohol use disorder who (unknown) (no (unknown) (unknown) CIWAPRN PRN (units (un known) date) Administration unknown) (unknown) (no (unknown) (unknown) Calcium 8.5 (units (un known) date) unknown) (unknown) (no (unknown) (unknown) Carbon Dioxide 27 (units (unknown) date) unknown) (unknown) (no (unknown) (unknown) Cardio (units (unkno wn) date) unknown) (unknown) (no (unknown) (unknown) Chest (units (unkno wn) date) unknown) (unknown) (no (unknown) (unknown) Chlordiazepoxide (units (unknown) date) 25 Mg Capsule PO 50 unknown) mg (unknown) (no (unknown) (unknown) Chlordiazepoxide (units (unknown) date) HCl 50 mg 07/14/22 unknown) 06:00 07/14/22 06:04 (unknown) (no (unknown) (unknown) Chloride 101 (units (u nknown) date) unknown) (unknown) (no (unknown) (unknown) Cipro IV 200 (units (u nknown) date) mls/hr unknown) (unknown) (no (unknown) (unknown) Ciprofloxacin 400 (units (unknown) date) mg in 200 mls @ 200 unknown) mls/hr 07/13/22 08:00 07/14/22 08:04 (unknown) (no (unknown) (unknown) Consent obtained (units (unknown) date) for unknown) 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: Yes (unknown) (no (unknown) (unknown) Const (units (unkno wn) date) unknown) (unknown) (no (unknown) (unknown) Creatinine 0.63 (units (unknown) date) unknown) (unknown) (no (unknown) (unknown) Critical Care (units ( unknown) date) time: unknown) (unknown) (no (unknown) (unknown) Current (units (unkno wn) date) Medications unknown) (unknown) (no (unknown) (unknown) Currently, on (units ( unknown) date) Precedex at 0.6 unknown) mg/kg/hr. Per bedside RN, still confused and (unknown) (no (unknown) (unknown) DAILY SANDY (units (unkn own) date) Administration unknown) (unknown) (no (unknown) (unknown) : 1990 (units (unknown) date) Acct:[id number] unknown) (unknown) (no (unknown) (unknown) Date of Service: (units (unknown) date) 07/13/22 unknown) (unknown) (no (unknown) (unknown) Deep Vein (units (unkn own) date) Thrombosis/Pulmonar unknown) y Embolism Present on Admission: Yes (unknown) (no (unknown) (unknown) Discussed the plan (units (unknown) date) of care with unknown) bedside RN, ICU charge nurse and hospitalist (unknown) (no (unknown) (unknown) Enoxaparin 40 (units ( unknown) date) Mg/0.4 Ml Syringe unknown) SUBCUT 40 mg (unknown) (no (unknown) (unknown) Enoxaparin Sodium (units (unknown) date) 40 mg 07/13/22 unknown) 09:00 07/14/22 09:04 (unknown) (no (unknown) (unknown) Eos # (Auto) 100 (units (unknown) date) unknown) (unknown) (no (unknown) (unknown) Eos % (Auto) 2.4 (units (unknown) date) unknown) (unknown) (no (unknown) (unknown) Estimated GFR > 60 (units (unknown) date) unknown) (unknown) (no (unknown) (unknown) Exam (units (unkno wn) date) unknown) (unknown) (no (unknown) (unknown) Folic Acid 1 Mg (units (unknown) date) Tablet PO 1 mg unknown) (unknown) (no (unknown) (unknown) Folic Acid 1 mg (units (unknown) date) 07/13/22 09:00 unknown) 07/14/22 09:04 (unknown) (no (unknown) (unknown) Generic Name Dose (units (unknown) date) Route Start Last unknown) Admin (unknown) (no (unknown) (unknown) Globulin 2.7 (units (u nknown) date) unknown) (unknown) (no (unknown) (unknown) Glucose 95 (units (unk nown) date) unknown) (unknown) (no (unknown) (unknown) Hct 30.0 L (units (unk nown) date) unknown) (unknown) (no (unknown) (unknown) Hematuria (units (unkn own) date) presence: without unknown) hematuria Qualified Code(s): N30.00 - Acute (unknown) (no (unknown) (unknown) Her initial work-up (units (unknown) date) was notable for unknown) blood alcohol level of 338. 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 (unknown) (no (unknown) (unknown) Interval history: (units (unknown) date) unknown) (unknown) (no (unknown) (unknown) [facility] (units (unknown) date) [address] unknown) [place] [address] (unknown) (no (unknown) (unknown) Laboratory Results (units (unknown) date) - last 24 hr unknown) (unknown) (no (unknown) (unknown) Labs (units (unkno wn) date) unknown) (unknown) (no (unknown) (unknown) Labs: (units (unkno wn) date) unknown) (unknown) (no (unknown) (unknown) Lorazepam 0 mg (units (unknown) date) 07/13/22 06:40 unknown) 07/13/22 10:15 (unknown) (no (unknown) (unknown) Lorazepam 2 Mg/Ml (units (unknown) date) Inj IV 2 mg unknown) (unknown) (no (unknown) (unknown) Lymph # (Auto) (units (unknown) date) 1100 unknown) (unknown) (no (unknown) (unknown) Lymph % (Auto) (units (unknown) date) 30.8 unknown) (unknown) (no (unknown) (unknown) MCH 26.5 (units (unkno wn) date) unknown) (unknown) (no (unknown) (unknown) MCHC 34.1 (units (unkn own) date) unknown) (unknown) (no (unknown) (unknown) MCV 77.8 L (units (unk nown) date) unknown) (unknown) (no (unknown) (unknown) MVI + Folate + (units (unknown) date) Thiamine + unknown) pyridoxine. (unknown) (no (unknown) (unknown) Magnesium 1.9 (units ( unknown) date) unknown) (unknown) (no (unknown) (unknown) Medications: (units (u nknown) date) unknown) (unknown) (no (unknown) (unknown) Yates # (Auto) 200 (units (unknown) date) unknown) (unknown) (no (unknown) (unknown) Yates % (Auto) 5.3 (units (unknown) date) unknown) (unknown) (no (unknown) (unknown) Moving all 4 (units (u nknown) date) extremities unknown) spontaneously (unknown) (no (unknown) (unknown) Multivitamin 1 (units (unknown) date) Tablet PO 1 tab unknown) (unknown) (no (unknown) (unknown) Multivitamins 1 (units (unknown) date) tab 07/13/22 09:00 unknown) 07/14/22 09:04 (unknown) (no (unknown) (unknown) Nasal Screen MRSA (units (unknown) date) (PCR) Not detected unknown) (unknown) (no (unknown) (unknown) Neuro (units (unkno wn) date) unknown) (unknown) (no (unknown) (unknown) Neut # (Auto) 2100 (units (unknown) date) unknown) (unknown) (no (unknown) (unknown) Neut % (Auto) 60.7 (units (unknown) date) unknown) (unknown) (no (unknown) (unknown) Nicotine 14 Patch (units (unknown) date) TOP 14 mg unknown) (unknown) (no (unknown) (unknown) Nicotine 14 mg (units (unknown) date) 07/13/22 09:00 unknown) 07/14/22 09:05 (unknown) (no (unknown) (unknown) Not using (units (unkn own) date) accessory muscle unknown) use (unknown) (no (unknown) (unknown) Objective (units (unkn own) date) unknown) (unknown) (no (unknown) (unknown) Other: (units (unkno wn) date) unknown) (unknown) (no (unknown) (unknown) Oxygen Delivery (units (unknown) date) Method Room Air unknown) (unknown) (no (unknown) (unknown) Pantoprazole 40 Mg (units (unknown) date) Vial IV 40 mg unknown) (unknown) (no (unknown) (unknown) Pantoprazole (units (u nknown) date) Sodium 40 mg unknown) 07/13/22 09:00 07/14/22 09:05 (unknown) (no (unknown) (unknown) Patient Location: (units (unknown) date) ICU unknown) (unknown) (no (unknown) (unknown) Patient: (units (unkno wn) date) Sarah Connors R unknown) MR#: M (unknown) (no (unknown) (unknown) Plan: (units (unkno wn) date) unknown) (unknown) (no (unknown) (unknown) Plt Count 116 L (units (unknown) date) unknown) (unknown) (no (unknown) (unknown) Potassium 4.2 (units ( unknown) date) unknown) (unknown) (no (unknown) (unknown) Precedex IV 0.6 (units (unknown) date) mcg/kg/hr unknown) (unknown) (no (unknown) (unknown) Problem details: (units (unknown) date) unknown) (unknown) (no (unknown) (unknown) Protocol (units (unkno wn) date) unknown) (unknown) (no (unknown) (unknown) Provider: Gerardo (units (unknown) date) Jace unknown) (unknown) (no (unknown) (unknown) Pulse Oximetry 97 (units (unknown) date) 98 unknown) (unknown) (no (unknown) (unknown) Pulse Oximetry 97 (units (unknown) date) unknown) (unknown) (no (unknown) (unknown) Pulse Oximetry 98 (units (unknown) date) 97 unknown) (unknown) (no (unknown) (unknown) Pulse Oximetry 98 (units (unknown) date) 98 unknown) (unknown) (no (unknown) (unknown) Pulse Rate 62 63 (units (unknown) date) unknown) (unknown) (no (unknown) (unknown) Pulse Rate 63 61 (units (unknown) date) unknown) (unknown) (no (unknown) (unknown) Pulse Rate 63 (units ( unknown) date) unknown) (unknown) (no (unknown) (unknown) Pulse Rate 66 67 (units (unknown) date) unknown) (unknown) (no (unknown) (unknown) Pulse Rate 67 62 (units (unknown) date) unknown) (unknown) (no (unknown) (unknown) Pulse Rate 68 (units ( unknown) date) unknown) (unknown) (no (unknown) (unknown) Pulse Rate 69 66 (units (unknown) date) unknown) (unknown) (no (unknown) (unknown) Q12H SANDY (units (unkno wn) date) Administration unknown) (unknown) (no (unknown) (unknown) Q6H SANDY (units (unkno wn) date) Administration unknown) (unknown) (no (unknown) (unknown) [id number] but hasn't (units (unknown) date) required Ativan or unknown) Phenobarbital overnight. Denies any fever, (unknown) (no (unknown) (unknown) Qualifiers: (units (un known) date) unknown) (unknown) (no (unknown) (unknown) Quality TeleICU (units (unknown) date) unknown) (unknown) (no (unknown) (unknown) RBC 3.85 L (units (unk nown) date) unknown) (unknown) (no (unknown) (unknown) RDW 17.5 H (units (unk nown) date) unknown) (unknown) (no (unknown) (unknown) Signed By: (units (unk nown) date) unknown) (unknown) (no (unknown) (unknown) Sodium 132 L (units (u nknown) date) unknown) (unknown) (no (unknown) (unknown) Status: Acute (units ( unknown) date) unknown) (unknown) (no (unknown) (unknown) Stress Ulcer (units (u nknown) date) unknown) (unknown) (no (unknown) (unknown) Stress ulcer (units (u nknown) date) prophylaxis: yes unknown) (unknown) (no (unknown) (unknown) Subjective (units (unk nown) date) unknown) (unknown) (no (unknown) (unknown) TITRATE SANDY 7.484 (units (unknown) date) mls/hr unknown) (unknown) (no (unknown) (unknown) Teleintensivist (units (unknown) date) Progress Note unknown) (unknown) (no (unknown) (unknown) The patient has (units (unknown) date) high probability of unknown) sudden, clinically significant (unknown) (no (unknown) (unknown) Thiamine 100 Mg (units (unknown) date) Tablet PO 07/16/22 unknown) 09:01 100 mg (unknown) (no (unknown) (unknown) Thiamine HCl 100 (units (unknown) date) mg 07/13/22 09:00 unknown) 07/14/22 09:04 (unknown) (no (unknown) (unknown) Time Spent With (units (unknown) date) Patient unknown) (unknown) (no (unknown) (unknown) Total Bilirubin (units (unknown) date) 0.7 unknown) (unknown) (no (unknown) (unknown) Total Protein 6.2 (units (unknown) date) L unknown) (unknown) (no (unknown) (unknown) Trade Name Freq (units (unknown) date) PRN Reason Stop unknown) Dose Admin (unknown) (no (unknown) (unknown) VTE (units (unkno wn) date) unknown) (unknown) (no (unknown) (unknown) Visit Medications (units (unknown) date) (administered) unknown) (unknown) (no (unknown) (unknown) Vital Signs (units (un known) date) unknown) (unknown) (no (unknown) (unknown) WBC 3.5 L (units (unkn own) date) unknown) (unknown) (no (unknown) (unknown) [Embedded Image (units (unknown) date) Not Available] unknown) (unknown) (no (unknown) (unknown) and Phos. (units (unkn own) date) unknown) (unknown) (no (unknown) (unknown) and hematocrit are (units (unknown) date) 11.5 and 35.3 unknown) respectively, glucose is 111, calcium 8.0, AST (unknown) (no (unknown) (unknown) appropriate (units (un known) date) referral for detox unknown) program. (unknown) (no (unknown) (unknown) as 20.? She was (units (unknown) date) also found to have unknown) UTI and was given a dose of oral cephalexin.? (unknown) (no (unknown) (unknown) bedside RN. (units (un known) date) unknown) (unknown) (no (unknown) (unknown) blood alcohol (units ( unknown) date) level in 300s.? unknown) Today, she was noted to be severely agitated and (unknown) (no (unknown) (unknown) blood pressure (units (unknown) date) 93/54, heart rate unknown) 119, respiratory rate 18, oxygen saturation of (unknown) (no (unknown) (unknown) care minutes of my (units (unknown) date) full attention on unknown) this patient's management and direct (unknown) (no (unknown) (unknown) chills, chest (units ( unknown) date) pain, SOB. No other unknown) acute issues reported. (unknown) (no (unknown) (unknown) cystitis without (units (unknown) date) hematuria unknown) (unknown) (no (unknown) (unknown) decision making. (units (unknown) date) Time devoted to unknown) procedures I billed separately and is not (unknown) (no (unknown) (unknown) department in (units (u nknown) date) May 2022 for unknown) similar symptoms including most recent visit with (unknown) (no (unknown) (unknown) deterioration, (units (unknown) date) which requires unknown) urgent interventions. I managed life supporting (unknown) (no (unknown) (unknown) dexmedeTOMIDine in (units (unknown) date) 0.9 % NaCL 400 mcg unknown) in 100 mls @ 2.495 mls/hr 07/13/22 11:15 (unknown) (no (unknown) (unknown) drinks as much as (units (unknown) date) 750 cc of vodka unknown) every day.? She has had several visits to ER (unknown) (no (unknown) (unknown) fluoxetine 10 mg (units (unknown) date) capsule 10 mg PO unknown) DAILY 07/13/22 [History Confirmed 07/13/22] (unknown) (no (unknown) (unknown) following commands (units (unknown) date) unknown) (unknown) (no (unknown) (unknown) hydroxyzine HCl 50 (units (unknown) date) mg tablet 50 mg PO unknown) DAILY 07/13/22 [History Confirmed (unknown) (no (unknown) (unknown) included. (units (unkn own) date) unknown) (unknown) (no (unknown) (unknown) intermittently (units (unknown) date) agitated, CIWA unknown) score <8 most of the time. On Librium 50 mg (unknown) (no (unknown) (unknown) interventions that (units (unknown) date) required frequent unknown) physician assessment. I spent 35 critical (unknown) (no (unknown) (unknown) ithdrawal.? (units (un known) date) Patient stated that unknown) she used to be sober for about 18 months in the (unknown) (no (unknown) (unknown) medically unstable (units (unknown) date) for transfer to unknown) rehab.? Her CIWA score in the ED was as high (unknown) (no (unknown) (unknown) nausea/vomiting (units (unknown) date) unknown) (unknown) (no (unknown) (unknown) needed (no more (units (unknown) date) than 4 doses in 24 unknown) hours). (unknown) (no (unknown) (unknown) of alcohol (units (unk nown) date) withdrawal. unknown) (unknown) (no (unknown) (unknown) past but had (units (u nknown) date) relapsed due to a unknown) divorce with her .? She states that she (unknown) (no (unknown) (unknown) patient care. Time (units (unknown) date) I spent with family unknown) or surrogate(s) is included if the (unknown) (no (unknown) (unknown) patient was (units (un known) date) incapable of unknown) providing information or participating in medical (unknown) (no (unknown) (unknown) phenobarbital 130 (units (unknown) date) mg IV so far with unknown) elevated CIWA score still between 12-20 per (unknown) (no (unknown) (unknown) presented to ED (units (unknown) date) with acute alcohol unknown) intoxication with symptoms of alcohol w (unknown) (no (unknown) (unknown) prophylaxis (units (un known) date) unknown) (unknown) (no (unknown) (unknown) quetiapine 300 mg (units (unknown) date) tablet 300 mg PO unknown) DAILY 07/13/22 [History Confirmed 07/13/22] (unknown) (no (unknown) (unknown) received (units (unkno wn) date) phenobarbital 130 unknown) mg IV x1, Librium 50 mg p.o. x1, and Ativan 6 mg IV (unknown) (no (unknown) (unknown) restless, (units (unkn own) date) presented to ER unknown) asking for help with rehab but she was deemed to be (unknown) (no (unknown) (unknown) score remains less (units (unknown) date) than 12 for at unknown) least 12 hours. (unknown) (no (unknown) (unknown) symptom triggered (units (unknown) date) protocol. unknown) (unknown) (no (unknown) (unknown) team (units (unkno wn) date) unknown) (unknown) (no (unknown) (unknown) this time and (units ( unknown) date) remains unknown) hemodynamically stable. (unknown) (no (unknown) (unknown) to urine cultures. (units (unknown) date) unknown) (unknown) (no (unknown) (unknown) today; this time (units (unknown) date) is exclusive of unknown) procedural time. (unknown) (no (unknown) (unknown) x1 in the ED.? She (units (unknown) date) is now admitted to unknown) ICU on Precedex drip. Result panel [id number] (unknown) (no (unknown) (unknown) (no value) (units (unk nown) date) unknown) (unknown) (no (unknown) (unknown) # CODE STATUS: (units (unknown) date) Full code unknown) (unknown) (no (unknown) (unknown) # Disposition: (units (unknown) date) Admit to ICU. May unknown) downgrade to MedSur telemetry floor if CIWA (unknown) (no (unknown) (unknown) # FEN: Regular (units (unknown) date) diet. C/w IVF (D5 unknown) 1/2 NS@100cc/hr). Aggressively replace Mg, K (unknown) (no (unknown) (unknown) # Glucose: Fairly (units (unknown) date) controlled. BG goal unknown) 120-180 (unknown) (no (unknown) (unknown) # Lines/tubes: PIV (units (unknown) date) unknown) (unknown) (no (unknown) (unknown) # Prophylaxis: (units (unknown) date) Lovenox 40 mg subcu unknown) for DVT prophylaxis, Pepcid for stress ulcer (unknown) (no (unknown) (unknown) (1) Alcohol (units (un known) date) withdrawal unknown) delirium, acute, hyperactive: (unknown) (no (unknown) (unknown) (2) Alcohol use (units (unknown) date) disorder: unknown) (unknown) (no (unknown) (unknown) (3) Acute (units (unkn own) date) cystitis: unknown) (unknown) (no (unknown) (unknown) (past 8 hours): (units (unknown) date) unknown) (unknown) (no (unknown) (unknown) - Agree with rest (units (unknown) date) of the management unknown) per primary team. D/w Primary hospitalist. (unknown) (no (unknown) (unknown) - C/w aspiration (units (unknown) date) and seizure unknown) precautions, Currently NPO due to severe (unknown) (no (unknown) (unknown) - Consult social (units (unknown) date) services to arrange unknown) for appropriate referral for detox program. (unknown) (no (unknown) (unknown) - Continue IV (units ( unknown) date) Ativan 4-10 mg unknown) every 15 min PRN with goal to keep CIWA <8 per (unknown) (no (unknown) (unknown) - Continue IV (units ( unknown) date) antibiotics x 3 unknown) days. Follow up and adjust antibiotics according (unknown) (no (unknown) (unknown) - Continue Librium (units (unknown) date) 50 mg PO QID if unknown) able to tolerate PO meds. (unknown) (no (unknown) (unknown) - Continue alcohol (units (unknown) date) withdrawal protocol unknown) including monitoring by CIWA score. C/w (unknown) (no (unknown) (unknown) - Has relapsed and (units (unknown) date) falied rehab. unknown) Consult social media intern to arrange for (unknown) (no (unknown) (unknown) - If unable to (units (unknown) date) keep CIWA less than unknown) 12, may use phenobarbital 130 mg IV/IM as (unknown) (no (unknown) (unknown) - Order US of (units ( unknown) date) abdomen to evaluate unknown) for liver cirrhosis. (unknown) (no (unknown) (unknown) - Received (units (unk nown) date) thiamine 100 mg IV, unknown) total 6 mg of Ativan IV, Librium 50 mg PO, and (unknown) (no (unknown) (unknown) - She is able to (units (unknown) date) protect his airway, unknown) does not need endotracheal intubation at (unknown) (no (unknown) (unknown) - Still has room (units (unknown) date) to administer more unknown) BZPs and phenobarbital. Order Phenobarbital (unknown) (no (unknown) (unknown) - Use Precedex gtt (units (unknown) date) only for refractory unknown) DTs despite on aggressive treatment with (unknown) (no (unknown) (unknown) 0.2 MCG/KG/HR (units ( unknown) date) unknown) (unknown) (no (unknown) (unknown) [id number] (units (unkn own) date) unknown) (unknown) (no (unknown) (unknown) 02:00 07/14/22 (units (unknown) date) unknown) (unknown) (no (unknown) (unknown) 02:08 (units (unkno wn) date) unknown) (unknown) (no (unknown) (unknown) 07/13/22 07/14/22 (units (unknown) date) 07/14/22 unknown) (unknown) (no (unknown) (unknown) 07/13/22] (units (unkn own) date) unknown) (unknown) (no (unknown) (unknown) 07/14/22 08:20 (units (unknown) date) unknown) (unknown) (no (unknown) (unknown) 07/14/22 09:10 (units (unknown) date) unknown) (unknown) (no (unknown) (unknown) 07/14/22 1003 (units ( unknown) date) unknown) (unknown) (no (unknown) (unknown) 07/14/22 (units (unkno wn) date) unknown) (unknown) (no (unknown) (unknown) 03:00 07/14/22 (units (unknown) date) unknown) (unknown) (no (unknown) (unknown) 04:00 07/14/22 (units (unknown) date) unknown) (unknown) (no (unknown) (unknown) 04:00 (units (unkno wn) date) unknown) (unknown) (no (unknown) (unknown) 05:00 07/14/22 (units (unknown) date) unknown) (unknown) (no (unknown) (unknown) 05:00 (units (unkno wn) date) unknown) (unknown) (no (unknown) (unknown) 06:00 07/14/22 (units (unknown) date) unknown) (unknown) (no (unknown) (unknown) 06:28 (units (unkno wn) date) unknown) (unknown) (no (unknown) (unknown) 07:01 07/14/22 (units (unknown) date) unknown) (unknown) (no (unknown) (unknown) 07:52 (units (unkno wn) date) unknown) (unknown) (no (unknown) (unknown) 08:00 07/14/22 (units (unknown) date) unknown) (unknown) (no (unknown) (unknown) 09:00 07/14/22 (units (unknown) date) unknown) (unknown) (no (unknown) (unknown) 09:00 (units (unkno wn) date) unknown) (unknown) (no (unknown) (unknown) 09:12 (units (unkno wn) date) unknown) (unknown) (no (unknown) (unknown) 15:28 08:20 08:20 (units (unknown) date) unknown) (unknown) (no (unknown) (unknown) 60 mg IV BID (units (u nknown) date) scheduled. unknown) (unknown) (no (unknown) (unknown) 67, urinalysis (units (unknown) date) indicated many unknown) bacteria.? As per the bedside nurse, patient (unknown) (no (unknown) (unknown) 97% on room air. (units (unknown) date) She weighs 49.8 kg unknown) with a BMI of 20.1.? WBC is 3.3, hemoglobin (unknown) (no (unknown) (unknown) ALT 17 (units (unkno wn) date) unknown) (unknown) (no (unknown) (unknown) AST 45 H (units (unkno wn) date) unknown) (unknown) (no (unknown) (unknown) Administration (units (unknown) date) unknown) (unknown) (no (unknown) (unknown) Age/Sex: 31 / F (units (unknown) date) unknown) (unknown) (no (unknown) (unknown) Albumin 3.5 (units (un known) date) unknown) (unknown) (no (unknown) (unknown) Albumin/Globulin (units (unknown) date) Ratio 1.3 unknown) (unknown) (no (unknown) (unknown) Alcohol Withdrawal (units (unknown) date) unknown) (unknown) (no (unknown) (unknown) Alkaline (units (unkno wn) date) Phosphatase 68 unknown) (unknown) (no (unknown) (unknown) Assessment + Plan (units (unknown) date) unknown) (unknown) (no (unknown) (unknown) Assessment and (units (unknown) date) plan unknown) (unknown) (no (unknown) (unknown) Awake, oriented x (units (unknown) date) 3, severely unknown) confused, intermittently agitated/restless but (unknown) (no (unknown) (unknown) BUN 5 L (units (unkno wn) date) unknown) (unknown) (no (unknown) (unknown) BUN/Creatinine (units (unknown) date) Ratio 7.9 unknown) (unknown) (no (unknown) (unknown) BZPs + phenobarb. (units (unknown) date) Would discourage unknown) the use of Precedex solely for the treatment (unknown) (no (unknown) (unknown) Baso # (Auto) 0 (units (unknown) date) unknown) (unknown) (no (unknown) (unknown) Baso % (Auto) 0.8 (units (unknown) date) unknown) (unknown) (no (unknown) (unknown) Blood Pressure (units (unknown) date) 105/75 unknown) (unknown) (no (unknown) (unknown) Blood Pressure (units (unknown) date) 107/75 unknown) (unknown) (no (unknown) (unknown) Blood Pressure (units (unknown) date) 109/74 110/75 unknown) (unknown) (no (unknown) (unknown) Blood Pressure (units (unknown) date) 110/79 112/63 unknown) (unknown) (no (unknown) (unknown) Blood Pressure (units (unknown) date) 113/81 unknown) (unknown) (no (unknown) (unknown) Blood Pressure (units (unknown) date) 114/78 unknown) (unknown) (no (unknown) (unknown) Blood Pressure (units (unknown) date) unknown) (unknown) (no (unknown) (unknown) Briefly, this is a (units (unknown) date) 31 years old female unknown) with history of alcohol use disorder who (unknown) (no (unknown) (unknown) CIWAPRN PRN (units (un known) date) Administration unknown) (unknown) (no (unknown) (unknown) Calcium 8.5 (units (un known) date) unknown) (unknown) (no (unknown) (unknown) Carbon Dioxide 27 (units (unknown) date) unknown) (unknown) (no (unknown) (unknown) Cardio (units (unkno wn) date) unknown) (unknown) (no (unknown) (unknown) Chest (units (unkno wn) date) unknown) (unknown) (no (unknown) (unknown) Chlordiazepoxide (units (unknown) date) 25 Mg Capsule PO 50 unknown) mg (unknown) (no (unknown) (unknown) Chlordiazepoxide (units (unknown) date) HCl 50 mg 07/14/22 unknown) 06:00 07/14/22 06:04 (unknown) (no (unknown) (unknown) Chloride 101 (units (u nknown) date) unknown) (unknown) (no (unknown) (unknown) Cipro IV 200 (units (u nknown) date) mls/hr unknown) (unknown) (no (unknown) (unknown) Ciprofloxacin 400 (units (unknown) date) mg in 200 mls @ 200 unknown) mls/hr 07/13/22 08:00 07/14/22 08:04 (unknown) (no (unknown) (unknown) Consent obtained (units (unknown) date) for unknown) 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: Yes (unknown) (no (unknown) (unknown) Const (units (unkno wn) date) unknown) (unknown) (no (unknown) (unknown) Creatinine 0.63 (units (unknown) date) unknown) (unknown) (no (unknown) (unknown) Critical Care (units ( unknown) date) time: unknown) (unknown) (no (unknown) (unknown) Current (units (unkno wn) date) Medications unknown) (unknown) (no (unknown) (unknown) Currently, on (units ( unknown) date) Precedex at 0.6 unknown) mg/kg/hr. Per bedside RN, still confused and (unknown) (no (unknown) (unknown) DAILY SANDY (units (unkn own) date) Administration unknown) (unknown) (no (unknown) (unknown) : 1990 (units (unknown) date) Acct:[id number] unknown) (unknown) (no (unknown) (unknown) Date of Service: (units (unknown) date) 07/13/22 unknown) (unknown) (no (unknown) (unknown) Deep Vein (units (unkn own) date) Thrombosis/Pulmonar unknown) y Embolism Present on Admission: Yes (unknown) (no (unknown) (unknown) Discussed the plan (units (unknown) date) of care with unknown) bedside RN, ICU charge nurse and hospitalist (unknown) (no (unknown) (unknown) Enoxaparin 40 (units ( unknown) date) Mg/0.4 Ml Syringe unknown) SUBCUT 40 mg (unknown) (no (unknown) (unknown) Enoxaparin Sodium (units (unknown) date) 40 mg 07/13/22 unknown) 09:00 07/14/22 09:04 (unknown) (no (unknown) (unknown) Eos # (Auto) 100 (units (unknown) date) unknown) (unknown) (no (unknown) (unknown) Eos % (Auto) 2.4 (units (unknown) date) unknown) (unknown) (no (unknown) (unknown) Estimated GFR > 60 (units (unknown) date) unknown) (unknown) (no (unknown) (unknown) Exam (units (unkno wn) date) unknown) (unknown) (no (unknown) (unknown) Folic Acid 1 Mg (units (unknown) date) Tablet PO 1 mg unknown) (unknown) (no (unknown) (unknown) Folic Acid 1 mg (units (unknown) date) 07/13/22 09:00 unknown) 07/14/22 09:04 (unknown) (no (unknown) (unknown) Generic Name Dose (units (unknown) date) Route Start Last unknown) Admin (unknown) (no (unknown) (unknown) Globulin 2.7 (units (u nknown) date) unknown) (unknown) (no (unknown) (unknown) Glucose 95 (units (unk nown) date) unknown) (unknown) (no (unknown) (unknown) Hct 30.0 L (units (unk nown) date) unknown) (unknown) (no (unknown) (unknown) Hematuria (units (unkn own) date) presence: without unknown) hematuria Qualified Code(s): N30.00 - Acute (unknown) (no (unknown) (unknown) Her initial work-up (units (unknown) date) was notable for unknown) blood alcohol level of 338. She is afebrile, (unknown) (no (unknown) (unknown) Hgb 10.2 L (units (unk nown) date) unknown) (unknown) (no (unknown) (unknown) Home Medications (units (unknown) date) unknown) (unknown) (no (unknown) (unknown) I spent a total of (units (unknown) date) [30] minutes of unknown) critical care time on this patient's care (unknown) (no (unknown) (unknown) IF CAMERA (units (unkn own) date) ACTIVATED, patient unknown) seen via real-time interactive audiovisual (unknown) (no (unknown) (unknown) In Sinus (units (unkno wn) date) Tachycardia unknown) (unknown) (no (unknown) (unknown) 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 (unknown) (no (unknown) (unknown) Interval history: (units (unknown) date) unknown) (unknown) (no (unknown) (unknown) [facility] (units (unknown) date) [address] unknown) [place] [address] (unknown) (no (unknown) (unknown) Laboratory Results (units (unknown) date) - last 24 hr unknown) (unknown) (no (unknown) (unknown) Labs (units (unkno wn) date) unknown) (unknown) (no (unknown) (unknown) Labs: (units (unkno wn) date) unknown) (unknown) (no (unknown) (unknown) Lorazepam 0 mg (units (unknown) date) 07/13/22 06:40 unknown) 07/13/22 10:15 (unknown) (no (unknown) (unknown) Lorazepam 2 Mg/Ml (units (unknown) date) Inj IV 2 mg unknown) (unknown) (no (unknown) (unknown) Lymph # (Auto) (units (unknown) date) 1100 unknown) (unknown) (no (unknown) (unknown) Lymph % (Auto) (units (unknown) date) 30.8 unknown) (unknown) (no (unknown) (unknown) MCH 26.5 (units (unkno wn) date) unknown) (unknown) (no (unknown) (unknown) MCHC 34.1 (units (unkn own) date) unknown) (unknown) (no (unknown) (unknown) MCV 77.8 L (units (unk nown) date) unknown) (unknown) (no (unknown) (unknown) MVI + Folate + (units (unknown) date) Thiamine + unknown) pyridoxine. (unknown) (no (unknown) (unknown) Magnesium 1.9 (units ( unknown) date) unknown) (unknown) (no (unknown) (unknown) Medications: (units (u nknown) date) unknown) (unknown) (no (unknown) (unknown) Yates # (Auto) 200 (units (unknown) date) unknown) (unknown) (no (unknown) (unknown) Yates % (Auto) 5.3 (units (unknown) date) unknown) (unknown) (no (unknown) (unknown) Moving all 4 (units (u nknown) date) extremities unknown) spontaneously (unknown) (no (unknown) (unknown) Multivitamin 1 (units (unknown) date) Tablet PO 1 tab unknown) (unknown) (no (unknown) (unknown) Multivitamins 1 (units (unknown) date) tab 07/13/22 09:00 unknown) 07/14/22 09:04 (unknown) (no (unknown) (unknown) Nasal Screen MRSA (units (unknown) date) (PCR) Not detected unknown) (unknown) (no (unknown) (unknown) Neuro (units (unkno wn) date) unknown) (unknown) (no (unknown) (unknown) Neut # (Auto) 2100 (units (unknown) date) unknown) (unknown) (no (unknown) (unknown) Neut % (Auto) 60.7 (units (unknown) date) unknown) (unknown) (no (unknown) (unknown) Nicotine 14 Patch (units (unknown) date) TOP 14 mg unknown) (unknown) (no (unknown) (unknown) Nicotine 14 mg (units (unknown) date) 07/13/22 09:00 unknown) 07/14/22 09:05 (unknown) (no (unknown) (unknown) Not using (units (unkn own) date) accessory muscle unknown) use (unknown) (no (unknown) (unknown) Objective (units (unkn own) date) unknown) (unknown) (no (unknown) (unknown) Other (units (unkno wn) date) participants/roles: unknown) RN (unknown) (no (unknown) (unknown) Other: (units (unkno wn) date) unknown) (unknown) (no (unknown) (unknown) Oxygen Delivery (units (unknown) date) Method Room Air unknown) (unknown) (no (unknown) (unknown) Pantoprazole 40 Mg (units (unknown) date) Vial IV 40 mg unknown) (unknown) (no (unknown) (unknown) Pantoprazole (units (u nknown) date) Sodium 40 mg unknown) 07/13/22 09:00 07/14/22 09:05 (unknown) (no (unknown) (unknown) Patient Location: (units (unknown) date) ICU unknown) (unknown) (no (unknown) (unknown) Patient: (units (unkno wn) date) Sarah Connors unknown) MR#: M (unknown) (no (unknown) (unknown) Plan: (units (unkno wn) date) unknown) (unknown) (no (unknown) (unknown) Plt Count 116 L (units (unknown) date) unknown) (unknown) (no (unknown) (unknown) Potassium 4.2 (units ( unknown) date) unknown) (unknown) (no (unknown) (unknown) Precedex IV 0.6 (units (unknown) date) mcg/kg/hr unknown) (unknown) (no (unknown) (unknown) Problem details: (units (unknown) date) unknown) (unknown) (no (unknown) (unknown) Protocol (units (unkno wn) date) unknown) (unknown) (no (unknown) (unknown) Provider location (units (unknown) date) (State): [place] unknown) (unknown) (no (unknown) (unknown) Provider: Gerardo (units (unknown) date) Jace unknown) (unknown) (no (unknown) (unknown) Pulse Oximetry 97 (units (unknown) date) 98 unknown) (unknown) (no (unknown) (unknown) Pulse Oximetry 97 (units (unknown) date) unknown) (unknown) (no (unknown) (unknown) Pulse Oximetry 98 (units (unknown) date) 97 unknown) (unknown) (no (unknown) (unknown) Pulse Oximetry 98 (units (unknown) date) 98 unknown) (unknown) (no (unknown) (unknown) Pulse Rate 62 63 (units (unknown) date) unknown) (unknown) (no (unknown) (unknown) Pulse Rate 63 61 (units (unknown) date) unknown) (unknown) (no (unknown) (unknown) Pulse Rate 63 (units ( unknown) date) unknown) (unknown) (no (unknown) (unknown) Pulse Rate 66 67 (units (unknown) date) unknown) (unknown) (no (unknown) (unknown) Pulse Rate 67 62 (units (unknown) date) unknown) (unknown) (no (unknown) (unknown) Pulse Rate 68 (units ( unknown) date) unknown) (unknown) (no (unknown) (unknown) Pulse Rate 69 66 (units (unknown) date) unknown) (unknown) (no (unknown) (unknown) Q12H SANDY (units (unkno wn) date) Administration unknown) (unknown) (no (unknown) (unknown) Q6H SANDY (units (unkno wn) date) Administration unknown) (unknown) (no (unknown) (unknown) Y2ciowq but hasn't (units (unknown) date) required Ativan or unknown) Phenobarbital overnight. Denies any fever, (unknown) (no (unknown) (unknown) Qualifiers: (units (un known) date) unknown) (unknown) (no (unknown) (unknown) Quality TeleICU (units (unknown) date) unknown) (unknown) (no (unknown) (unknown) RBC 3.85 L (units (unk nown) date) unknown) (unknown) (no (unknown) (unknown) RDW 17.5 H (units (unk nown) date) unknown) (unknown) (no (unknown) (unknown) Signed (units (unkno wn) date) By:<Electronically unknown) signed by Gerardo Mccormick> (unknown) (no (unknown) (unknown) Sodium 132 L (units (u nknown) date) unknown) (unknown) (no (unknown) (unknown) Status: Acute (units ( unknown) date) unknown) (unknown) (no (unknown) (unknown) Stress Ulcer (units (u nknown) date) unknown) (unknown) (no (unknown) (unknown) Stress ulcer (units (u nknown) date) prophylaxis: yes unknown) (unknown) (no (unknown) (unknown) Subjective (units (unk nown) date) unknown) (unknown) (no (unknown) (unknown) TITRATE SANDY 7.484 (units (unknown) date) mls/hr unknown) (unknown) (no (unknown) (unknown) Teleintensivist (units (unknown) date) Progress Note unknown) (unknown) (no (unknown) (unknown) The patient has (units (unknown) date) high probability of unknown) sudden, clinically significant (unknown) (no (unknown) (unknown) Thiamine 100 Mg (units (unknown) date) Tablet PO 07/16/22 unknown) 09:01 100 mg (unknown) (no (unknown) (unknown) Thiamine HCl 100 (units (unknown) date) mg 07/13/22 09:00 unknown) 07/14/22 09:04 (unknown) (no (unknown) (unknown) Time Spent With (units (unknown) date) Patient unknown) (unknown) (no (unknown) (unknown) Total Bilirubin (units (unknown) date) 0.7 unknown) (unknown) (no (unknown) (unknown) Total Protein 6.2 (units (unknown) date) L unknown) (unknown) (no (unknown) (unknown) Trade Name Freq (units (unknown) date) PRN Reason Stop unknown) Dose Admin (unknown) (no (unknown) (unknown) VTE (units (unkno wn) date) unknown) (unknown) (no (unknown) (unknown) Visit Medications (units (unknown) date) (administered) unknown) (unknown) (no (unknown) (unknown) Vital Signs (units (un known) date) unknown) (unknown) (no (unknown) (unknown) WBC 3.5 L (units (unkn own) date) unknown) (unknown) (no (unknown) (unknown) [Embedded Image (units (unknown) date) Not Available] unknown) (unknown) (no (unknown) (unknown) and Phos. (units (unkn own) date) unknown) (unknown) (no (unknown) (unknown) and hematocrit are (units (unknown) date) 11.5 and 35.3 unknown) respectively, glucose is 111, calcium 8.0, AST (unknown) (no (unknown) (unknown) appropriate (units (un known) date) referral for detox unknown) program. (unknown) (no (unknown) (unknown) as 20.? She was (units (unknown) date) also found to have unknown) UTI and was given a dose of oral cephalexin.? (unknown) (no (unknown) (unknown) bedside RN. (units (un known) date) unknown) (unknown) (no (unknown) (unknown) blood alcohol (units ( unknown) date) level in 300s.? unknown) Today, she was noted to be severely agitated and (unknown) (no (unknown) (unknown) blood pressure (units (unknown) date) 93/54, heart rate unknown) 119, respiratory rate 18, oxygen saturation of (unknown) (no (unknown) (unknown) care minutes of my (units (unknown) date) full attention on unknown) this patient's management and direct (unknown) (no (unknown) (unknown) chills, chest (units ( unknown) date) pain, SOB. No other unknown) acute issues reported. (unknown) (no (unknown) (unknown) communication: (units (unknown) date) Camera activated unknown) (unknown) (no (unknown) (unknown) cystitis without (units (unknown) date) hematuria unknown) (unknown) (no (unknown) (unknown) decision making. (units (unknown) date) Time devoted to unknown) procedures I billed separately and is not (unknown) (no (unknown) (unknown) department in (units (u nknown) date) May 2022 for unknown) similar symptoms including most recent visit with (unknown) (no (unknown) (unknown) deterioration, (units (unknown) date) which requires unknown) urgent interventions. I managed life supporting (unknown) (no (unknown) (unknown) dexmedeTOMIDine in (units (unknown) date) 0.9 % NaCL 400 mcg unknown) in 100 mls @ 2.495 mls/hr 07/13/22 11:15 (unknown) (no (unknown) (unknown) drinks as much as (units (unknown) date) 750 cc of vodka unknown) every day.? She has had several visits to ER (unknown) (no (unknown) (unknown) fluoxetine 10 mg (units (unknown) date) capsule 10 mg PO unknown) DAILY 07/13/22 [History Confirmed 07/13/22] (unknown) (no (unknown) (unknown) following commands (units (unknown) date) unknown) (unknown) (no (unknown) (unknown) hydroxyzine HCl 50 (units (unknown) date) mg tablet 50 mg PO unknown) DAILY 07/13/22 [History Confirmed (unknown) (no (unknown) (unknown) included. (units (unkn own) date) unknown) (unknown) (no (unknown) (unknown) intermittently (units (unknown) date) agitated, CIWA unknown) score <8 most of the time. On Librium 50 mg (unknown) (no (unknown) (unknown) interventions that (units (unknown) date) required frequent unknown) physician assessment. I spent 35 critical (unknown) (no (unknown) (unknown) medically unstable (units (unknown) date) for transfer to unknown) rehab.? Her CIWA score in the ED was as high (unknown) (no (unknown) (unknown) nausea/vomiting (units (unknown) date) unknown) (unknown) (no (unknown) (unknown) needed (no more (units (unknown) date) than 4 doses in 24 unknown) hours). (unknown) (no (unknown) (unknown) of alcohol (units (unk nown) date) withdrawal. unknown) (unknown) (no (unknown) (unknown) past but had (units (u nknown) date) relapsed due to a unknown) divorce with her .? She states that she (unknown) (no (unknown) (unknown) patient care. Time (units (unknown) date) I spent with family unknown) or surrogate(s) is included if the (unknown) (no (unknown) (unknown) patient was (units (un known) date) incapable of unknown) providing information or participating in medical (unknown) (no (unknown) (unknown) phenobarbital 130 (units (unknown) date) mg IV so far with unknown) elevated CIWA score still between 12-20 per (unknown) (no (unknown) (unknown) presented to ED (units (unknown) date) with acute alcohol unknown) intoxication with symptoms of alcohol (unknown) (no (unknown) (unknown) prophylaxis (units (un known) date) unknown) (unknown) (no (unknown) (unknown) quetiapine 300 mg (units (unknown) date) tablet 300 mg PO unknown) DAILY 07/13/22 [History Confirmed 07/13/22] (unknown) (no (unknown) (unknown) received (units (unkno wn) date) phenobarbital 130 unknown) mg IV x1, Librium 50 mg p.o. x1, and Ativan 6 mg IV (unknown) (no (unknown) (unknown) restless, (units (unkn own) date) presented to ER unknown) asking for help with rehab but she was deemed to be (unknown) (no (unknown) (unknown) score remains less (units (unknown) date) than 12 for at unknown) least 12 hours. (unknown) (no (unknown) (unknown) symptom triggered (units (unknown) date) protocol. unknown) (unknown) (no (unknown) (unknown) team (units (unkno wn) date) unknown) (unknown) (no (unknown) (unknown) this time and (units ( unknown) date) remains unknown) hemodynamically stable. (unknown) (no (unknown) (unknown) to urine cultures. (units (unknown) date) unknown) (unknown) (no (unknown) (unknown) today; this time (units (unknown) date) is exclusive of unknown) procedural time. (unknown) (no (unknown) (unknown) withdrawal.? (units (un known) date) Patient stated that unknown) she used to be sober for about 18 months in the (unknown) (no (unknown) (unknown) x1 in the ED.? She (units (unknown) date) is now admitted to unknown) ICU on Precedex drip. Result panel [id number] (unknown) (no (unknown) (unknown) (no value) (units (unk nown) date) unknown) (unknown) (no (unknown) (unknown) (past 8 hours): (units (unknown) date) unknown) (unknown) (no (unknown) (unknown) [id number] (units (unkn own) date) unknown) (unknown) (no (unknown) (unknown) 07/12/22 16:28 (units (unknown) date) unknown) (unknown) (no (unknown) (unknown) 07/13/22 07/14/22 (units (unknown) date) 07/14/22 unknown) (unknown) (no (unknown) (unknown) 07/13/22 06:12 (units (unknown) date) unknown) (unknown) (no (unknown) (unknown) 07/13/22 06:41 (units (unknown) date) unknown) (unknown) (no (unknown) (unknown) 07/13/22 11:35 (units (unknown) date) unknown) (unknown) (no (unknown) (unknown) 07/14/22 08:20 (units (unknown) date) unknown) (unknown) (no (unknown) (unknown) 07/14/22 (units (unkno wn) date) unknown) (unknown) (no (unknown) (unknown) 09:00 07/14/22 (units (unknown) date) unknown) (unknown) (no (unknown) (unknown) 09:12 (units (unkno wn) date) unknown) (unknown) (no (unknown) (unknown) 1 tab PO DAILY (units (unknown) date) Qty: 30 0RF unknown) (unknown) (no (unknown) (unknown) 10 mg PO DAILY (units (unknown) date) unknown) (unknown) (no (unknown) (unknown) 100 mg PO DAILY (units (unknown) date) Qty: 30 0RF unknown) (unknown) (no (unknown) (unknown) 10:00 07/14/22 (units (unknown) date) unknown) (unknown) (no (unknown) (unknown) 10:04 (units (unkno wn) date) unknown) (unknown) (no (unknown) (unknown) 15:28 08:20 08:20 (units (unknown) date) unknown) (unknown) (no (unknown) (unknown) 300 mg PO DAILY (units (unknown) date) unknown) (unknown) (no (unknown) (unknown) 40 mg PO 0700 Qty: (units (unknown) date) 30 0RF unknown) (unknown) (no (unknown) (unknown) 50 mg PO DAILY (units (unknown) date) unknown) (unknown) (no (unknown) (unknown) ALT 17 (units (unkno wn) date) unknown) (unknown) (no (unknown) (unknown) AST 45 H (units (unkno wn) date) unknown) (unknown) (no (unknown) (unknown) Age/Sex: 31 / F (units (unknown) date) unknown) (unknown) (no (unknown) (unknown) Albumin 3.5 (units (un known) date) unknown) (unknown) (no (unknown) (unknown) Albumin/Globulin (units (unknown) date) Ratio 1.3 unknown) (unknown) (no (unknown) (unknown) Alcohol withdrawal (units (unknown) date) delirium, acute, unknown) hyperactive (unknown) (no (unknown) (unknown) Alcoholism (units (unk nown) date) unknown) (unknown) (no (unknown) (unknown) Alkaline (units (unkno wn) date) Phosphatase 68 unknown) (unknown) (no (unknown) (unknown) Anemia (-2018) (units (unknown) date) unknown) (unknown) (no (unknown) (unknown) BUN 5 L (units (unkno wn) date) unknown) (unknown) (no (unknown) (unknown) BUN/Creatinine (units (unknown) date) Ratio 7.9 unknown) (unknown) (no (unknown) (unknown) Vanesa (units (unkno wn) date) MD Rafael unknown) (unknown) (no (unknown) (unknown) Baso # (Auto) 0 (units (unknown) date) unknown) (unknown) (no (unknown) (unknown) Baso % (Auto) 0.8 (units (unknown) date) unknown) (unknown) (no (unknown) (unknown) Blood Pressure (units (unknown) date) 106/74 unknown) (unknown) (no (unknown) (unknown) Blood Pressure (units (unknown) date) 112/63 unknown) (unknown) (no (unknown) (unknown) Calcium 8.5 (units (un known) date) unknown) (unknown) (no (unknown) (unknown) Carbon Dioxide 27 (units (unknown) date) unknown) (unknown) (no (unknown) (unknown) Chief complaint: (units (unknown) date) Acute alcohol unknown) withdrawal (unknown) (no (unknown) (unknown) Chloride 101 (units (u nknown) date) unknown) (unknown) (no (unknown) (unknown) Comment: (units (unkno wn) date) unknown) (unknown) (no (unknown) (unknown) Consult to (units (unk nown) date) Dietitian, Adult unknown) Routine (unknown) (no (unknown) (unknown) Consult to [facility] - (units (unknown) date) 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 unknown) Stat (unknown) (no (unknown) (unknown) Consult to Social (units (unknown) date) Services Routine unknown) (unknown) (no (unknown) (unknown) Consult to (units (unk nown) date) Tele-baseball scout unknown) Routine (unknown) (no (unknown) (unknown) Consulting (units (unk nown) date) Provider: Intercept unknown) Tele-intensivists (unknown) (no (unknown) (unknown) Consults: (units (unkn own) date) unknown) (unknown) (no (unknown) (unknown) Continued (units (unkn own) date) unknown) (unknown) (no (unknown) (unknown) Creatinine 0.63 (units (unknown) date) unknown) (unknown) (no (unknown) (unknown) : 1990 (units (unknown) date) Acct:[id number] unknown) (unknown) (no (unknown) (unknown) Date Patient Seen: (units (unknown) date) 07/14/22 unknown) (unknown) (no (unknown) (unknown) Date of Service: (units (unknown) date) 07/13/22 unknown) (unknown) (no (unknown) (unknown) Date of admission: (units (unknown) date) unknown) (unknown) (no (unknown) (unknown) Deep Vein (units (unkn own) date) Thrombosis/Pulmonar unknown) y Embolism Present on Admission: Yes (unknown) (no (unknown) (unknown) Discharge Data (units (unknown) date) unknown) (unknown) (no (unknown) (unknown) Discharge Plan (units (unknown) date) unknown) (unknown) (no (unknown) (unknown) Discharge (units (unkn own) date) Providers unknown) (unknown) (no (unknown) (unknown) Discharge Summary (units (unknown) date) unknown) (unknown) (no (unknown) (unknown) Discharge orders + (units (unknown) date) Medications unknown) (unknown) (no (unknown) (unknown) Discharge (units (unkn own) date) provider: unknown) (unknown) (no (unknown) (unknown) Eos # (Auto) 100 (units (unknown) date) unknown) (unknown) (no (unknown) (unknown) Eos % (Auto) 2.4 (units (unknown) date) unknown) (unknown) (no (unknown) (unknown) Estimated GFR > 60 (units (unknown) date) unknown) (unknown) (no (unknown) (unknown) Exam (units (unkno wn) date) unknown) (unknown) (no (unknown) (unknown) Family History (units (unknown) date) (Reviewed 07/13/22 unknown) @ 06:49 by LYUDMILA Borden) (unknown) (no (unknown) (unknown) Family/Other (units (u nknown) date) Alcoholism unknown) (unknown) (no (unknown) (unknown) Family/Other (units (u nknown) date) Diabetes mellitus unknown) (unknown) (no (unknown) (unknown) Father Alcoholism (units (unknown) date) unknown) (unknown) (no (unknown) (unknown) Tonia Schneider MD (units (unknown) date) [Primary Care unknown) Provider] (unknown) (no (unknown) (unknown) Follow (units (unkno wn) date) up/Referrals: unknown) (unknown) (no (unknown) (unknown) Globulin 2.7 (units (u nknown) date) unknown) (unknown) (no (unknown) (unknown) Glucose 95 (units (unk nown) date) unknown) (unknown) (no (unknown) (unknown) Grandfather [...] extraction () unknown) (unknown) (no (unknown) (unknown) Has provider been (units (unknown) date) notified: Yes unknown) (unknown) (no (unknown) (unknown) Hct 30.0 L (units (unk nown) date) unknown) (unknown) (no (unknown) (unknown) Hgb 10.2 L (units (unk nown) date) unknown) (unknown) (no (unknown) (unknown) History of Present (units (unknown) date) Illness unknown) (unknown) (no (unknown) (unknown) Insomnia (units (unkno wn) date) unknown) (unknown) (no (unknown) (unknown) [facility] (units (unknown) date) [address] unknown) [place] [address] (unknown) (no (unknown) (unknown) Laboratory Results (units (unknown) date) - last 24 hr unknown) (unknown) (no (unknown) (unknown) Labs (units (unkno wn) date) unknown) (unknown) (no (unknown) (unknown) Labs: (units (unkno wn) date) unknown) (unknown) (no (unknown) (unknown) Lymph # (Auto) (units (unknown) date) 1100 unknown) (unknown) (no (unknown) (unknown) Lymph % (Auto) (units (unknown) date) 30.8 unknown) (unknown) (no (unknown) (unknown) MCH 26.5 (units (unkno wn) date) unknown) (unknown) (no (unknown) (unknown) MCHC 34.1 (units (unkn own) date) unknown) (unknown) (no (unknown) (unknown) MCV 77.8 L (units (unk nown) date) unknown) (unknown) (no (unknown) (unknown) Magnesium 1.9 (units ( unknown) date) unknown) (unknown) (no (unknown) (unknown) Medical History (units (unknown) date) (Updated 07/13/22 @ unknown) 11:47 by Gerardo Mccormick MD) (unknown) (no (unknown) (unknown) Menometrorrhagia (units (unknown) date) unknown) (unknown) (no (unknown) (unknown) Yates # (Auto) 200 (units (unknown) date) unknown) (unknown) (no (unknown) (unknown) Yates % (Auto) 5.3 (units (unknown) date) unknown) (unknown) (no (unknown) (unknown) Mother Diabetes (units (unknown) date) mellitus unknown) (unknown) (no (unknown) (unknown) Tonia Schneider MD (units (unknown) date) unknown) (unknown) (no (unknown) (unknown) Narrative: (units (unk nown) date) unknown) (unknown) (no (unknown) (unknown) Nasal Screen MRSA (units (unknown) date) (PCR) Not detected unknown) (unknown) (no (unknown) (unknown) Neut # (Auto) 2100 (units (unknown) date) unknown) (unknown) (no (unknown) (unknown) Neut % (Auto) 60.7 (units (unknown) date) unknown) (unknown) (no (unknown) (unknown) New (units (unkno wn) date) unknown) (unknown) (no (unknown) (unknown) Obesity (units (unkno wn) date) unknown) (unknown) (no (unknown) (unknown) Objective (units (unkn own) date) unknown) (unknown) (no (unknown) (unknown) Overweight (units (unk nown) date) unknown) (unknown) (no (unknown) (unknown) Oxygen Delivery (units (unknown) date) Method Room Air unknown) (unknown) (no (unknown) (unknown) PFSH (units (unkno wn) date) unknown) (unknown) (no (unknown) (unknown) Patient (units (unkno wn) date) Disposition: Home unknown) (unknown) (no (unknown) (unknown) Patient: (units (unkno wn) date) Sarah Connors unknown) MR#: M (unknown) (no (unknown) (unknown) Plt Count 116 L (units (unknown) date) unknown) (unknown) (no (unknown) (unknown) Potassium 4.2 (units ( unknown) date) unknown) (unknown) (no (unknown) (unknown) Prescriptions: (units (unknown) date) unknown) (unknown) (no (unknown) (unknown) Primary Care (units (u nknown) date) Provider: unknown) Tonia Schneider (unknown) (no (unknown) (unknown) Primary care (units (u nknown) date) physician: unknown) (unknown) (no (unknown) (unknown) Provider (units (unkno wn) date) unknown) (unknown) (no (unknown) (unknown) Provider: (units (unkn own) date) Vanesa Hall unknown) (unknown) (no (unknown) (unknown) Pulse Oximetry 98 (units (unknown) date) 97 unknown) (unknown) (no (unknown) (unknown) Pulse Oximetry 98 (units (unknown) date) 98 unknown) (unknown) (no (unknown) (unknown) Pulse Rate 62 63 (units (unknown) date) unknown) (unknown) (no (unknown) (unknown) Pulse Rate 66 67 (units (unknown) date) unknown) (unknown) (no (unknown) (unknown) Quality (units (unkno wn) date) unknown) (unknown) (no (unknown) (unknown) RBC 3.85 L (units (unk nown) date) unknown) (unknown) (no (unknown) (unknown) RDW 17.5 H (units (unk nown) date) unknown) (unknown) (no (unknown) (unknown) Reason For Exam: (units (unknown) date) EHOH unknown) (unknown) (no (unknown) (unknown) Reason for (units (unk nown) date) consultation: unknown) 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 (unknown) (no (unknown) (unknown) S/P myringotomy (units [...] (unknown) Social History (units (unknown) date) (Reviewed 07/12/22 unknown) @ 17:50 by LYUDMILA Do) (unknown) (no (unknown) (unknown) Sodium 132 L (units (u nknown) date) unknown) (unknown) (no (unknown) (unknown) Stand Alone Forms: (units (unknown) date) Patient Portal/API, unknown) Stroke Signs + Symptoms (unknown) (no (unknown) (unknown) Surgical History (units (unknown) date) (Reviewed 07/13/22 unknown) @ 06:49 by LYUDMILA Borden) (unknown) (no (unknown) (unknown) This patient was (units (unknown) date) also of for DEXA unknown) (unknown) (no (unknown) (unknown) Total Bilirubin (units (unknown) date) 0.7 unknown) (unknown) (no (unknown) (unknown) Total Protein 6.2 (units (unknown) date) L unknown) (unknown) (no (unknown) (unknown) VTE (units (unkno wn) date) unknown) (unknown) (no (unknown) (unknown) Visit (units (unkno wn) date) Report/Discharge unknown) Packet (unknown) (no (unknown) (unknown) Vital Signs (units (un known) date) unknown) (unknown) (no (unknown) (unknown) WBC 3.5 L (units (unkn own) date) unknown) (unknown) (no (unknown) (unknown) [Embedded Image (units (unknown) date) Not Available] unknown) (unknown) (no (unknown) (unknown) alcohol intake: (units (unknown) date) former unknown) (unknown) (no (unknown) (unknown) current (units (unkno wn) date) occupational unknown) exposures/hazards: Yes (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 with Pandemic ) (unknown) (no (unknown) (unknown) education level: (units (unknown) date) college unknown) (unknown) (no (unknown) (unknown) renee/zoroastrianism: (units (unknown) date) Buddhist unknown) (unknown) (no (unknown) (unknown) fluoxetine 10 mg (units (unknown) date) capsule unknown) (unknown) (no (unknown) (unknown) household members: (units (unknown) date) children unknown) (unknown) (no (unknown) (unknown) hydroxyzine HCl 50 (units (unknown) date) mg tablet unknown) (unknown) (no (unknown) (unknown) marital status: (units (unknown) date) unknown) (unknown) (no (unknown) (unknown) multivitamin with (units (unknown) date) folic acid unknown) [Tab-A-Kael] 400 mcg Tablet (unknown) (no (unknown) (unknown) number of (units (unkn own) date) children: 1 unknown) (unknown) (no (unknown) (unknown) occupational (units (u nknown) date) status: employed unknown) (unknown) (no (unknown) (unknown) pantoprazole 40 mg (units (unknown) date) Tablet,Delayed unknown) Release (Dr/Ec) (unknown) (no (unknown) (unknown) quetiapine 300 mg (units (unknown) date) tablet unknown) (unknown) (no (unknown) (unknown) second hand (units (un known) date) exposure: No unknown) (growing up as a child - not currently) (unknown) (no (unknown) (unknown) special renee (units ( unknown) date) needs: No unknown) (unknown) (no (unknown) (unknown) substance use (units ( unknown) date) type: does not use unknown) (unknown) (no (unknown) (unknown) thiamine (units (unkno wn) date) mononitrate (vit unknown) B1) 100 mg Tablet Result panel [id number] (unknown) (no (unknown) (unknown) (no value) (units (unk nown) date) unknown) (unknown) (no (unknown) (unknown) (past 8 hours): (units (unknown) date) unknown) (unknown) (no (unknown) (unknown) [id number] (units (unkn own) date) unknown) (unknown) (no (unknown) (unknown) 07/12/22 16:28 (units (unknown) date) unknown) (unknown) (no (unknown) (unknown) 07/13/22 07/14/22 (units (unknown) date) 07/14/22 unknown) (unknown) (no (unknown) (unknown) 07/13/22 06:12 (units (unknown) date) unknown) (unknown) (no (unknown) (unknown) 07/13/22 06:41 (units (unknown) date) unknown) (unknown) (no (unknown) (unknown) 07/13/22 11:35 (units (unknown) date) unknown) (unknown) (no (unknown) (unknown) 07/14/22 08:20 (units (unknown) date) unknown) (unknown) (no (unknown) (unknown) 07/14/22 (units (unkno wn) date) unknown) (unknown) (no (unknown) (unknown) 09:00 07/14/22 (units (unknown) date) unknown) (unknown) (no (unknown) (unknown) 09:12 (units (unkno wn) date) unknown) (unknown) (no (unknown) (unknown) 1 tab PO DAILY (units (unknown) date) Qty: 30 0RF unknown) (unknown) (no (unknown) (unknown) 10 mg PO DAILY (units (unknown) date) unknown) (unknown) (no (unknown) (unknown) 100 mg PO DAILY (units (unknown) date) Qty: 30 0RF unknown) (unknown) (no (unknown) (unknown) 10:00 07/14/22 (units (unknown) date) unknown) (unknown) (no (unknown) (unknown) 10:04 (units (unkno wn) date) unknown) (unknown) (no (unknown) (unknown) 15:28 08:20 08:20 (units (unknown) date) unknown) (unknown) (no (unknown) (unknown) 300 mg PO DAILY (units (unknown) date) unknown) (unknown) (no (unknown) (unknown) 40 mg PO 0700 Qty: (units (unknown) date) 30 0RF unknown) (unknown) (no (unknown) (unknown) 50 mg PO DAILY (units (unknown) date) unknown) (unknown) (no (unknown) (unknown) ALT 17 (units (unkno wn) date) unknown) (unknown) (no (unknown) (unknown) AST 45 H (units (unkno wn) date) unknown) (unknown) (no (unknown) (unknown) Acute alcohol (units ( unknown) date) intoxication and unknown) withdrawal (unknown) (no (unknown) (unknown) Age/Sex: 31 / F (units (unknown) date) unknown) (unknown) (no (unknown) (unknown) Albumin 3.5 (units (un known) date) unknown) (unknown) (no (unknown) (unknown) Albumin/Globulin (units (unknown) date) Ratio 1.3 unknown) (unknown) (no (unknown) (unknown) Alcohol withdrawal (units (unknown) date) delirium, acute, unknown) hyperactive (unknown) (no (unknown) (unknown) Alcoholism (units (unk nown) date) unknown) (unknown) (no (unknown) (unknown) Alkaline (units (unkno wn) date) Phosphatase 68 unknown) (unknown) (no (unknown) (unknown) Anemia (-2018) (units (unknown) date) unknown) (unknown) (no (unknown) (unknown) BUN 5 L (units (unkno wn) date) unknown) (unknown) (no (unknown) (unknown) BUN/Creatinine (units (unknown) date) Ratio 7.9 unknown) (unknown) (no (unknown) (unknown) Vanesa (units (unkno wn) date) MD Rafael unknown) (unknown) (no (unknown) (unknown) Baso # (Auto) 0 (units (unknown) date) unknown) (unknown) (no (unknown) (unknown) Baso % (Auto) 0.8 (units (unknown) date) unknown) (unknown) (no (unknown) (unknown) Blood Pressure (units (unknown) date) 106/74 unknown) (unknown) (no (unknown) (unknown) Blood Pressure (units (unknown) date) 112/63 unknown) (unknown) (no (unknown) (unknown) Calcium 8.5 (units (un known) date) unknown) (unknown) (no (unknown) (unknown) Carbon Dioxide 27 (units (unknown) date) unknown) (unknown) (no (unknown) (unknown) Chief complaint: (units (unknown) date) Acute alcohol unknown) withdrawal (unknown) (no (unknown) (unknown) Chloride 101 (units (u nknown) date) unknown) (unknown) (no (unknown) (unknown) Comment: (units (unkno wn) date) unknown) (unknown) (no (unknown) (unknown) Consult to (units (unk nown) date) Dietitian, Adult unknown) Routine (unknown) (no (unknown) (unknown) Consult to WINDOWS MIGRATION TECHNICIAN - (units (unknown) date) 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 unknown) Stat (unknown) (no (unknown) (unknown) Consult to Social (units (unknown) date) Services Routine unknown) (unknown) (no (unknown) (unknown) Consult to (units (unk nown) date) Tele-baseball scout unknown) Routine (unknown) (no (unknown) (unknown) Consulting (units (unk nown) date) Provider: Intercept unknown) Tele-intensivists (unknown) (no (unknown) (unknown) Consults: (units (unkn own) date) unknown) (unknown) (no (unknown) (unknown) Continued (units (unkn own) date) unknown) (unknown) (no (unknown) (unknown) Creatinine 0.63 (units (unknown) date) unknown) (unknown) (no (unknown) (unknown) : 1990 (units (unknown) date) Acct:[id number] unknown) (unknown) (no (unknown) (unknown) Date Patient Seen: (units (unknown) date) 07/14/22 unknown) (unknown) (no (unknown) (unknown) Date of Service: (units (unknown) date) 07/13/22 unknown) (unknown) (no (unknown) (unknown) Date of admission: (units (unknown) date) unknown) (unknown) (no (unknown) (unknown) Deep Vein (units (unkn own) date) Thrombosis/Pulmonar unknown) y Embolism Present on Admission: Yes (unknown) (no (unknown) (unknown) Discharge Data (units (unknown) date) unknown) (unknown) (no (unknown) (unknown) Discharge (units (unkn own) date) Diagnosis: unknown) (unknown) (no (unknown) (unknown) Discharge Plan (units (unknown) date) unknown) (unknown) (no (unknown) (unknown) Discharge (units (unkn own) date) Providers unknown) (unknown) (no (unknown) (unknown) Discharge Summary (units (unknown) date) unknown) (unknown) (no (unknown) (unknown) Discharge orders + (units (unknown) date) Medications unknown) (unknown) (no (unknown) (unknown) Discharge (units (unkn own) date) provider: unknown) (unknown) (no (unknown) (unknown) Eos # (Auto) 100 (units (unknown) date) unknown) (unknown) (no (unknown) (unknown) Eos % (Auto) 2.4 (units (unknown) date) unknown) (unknown) (no (unknown) (unknown) Estimated GFR > 60 (units (unknown) date) unknown) (unknown) (no (unknown) (unknown) Exam (units (unkno wn) date) unknown) (unknown) (no (unknown) (unknown) Family History (units (unknown) date) (Reviewed 07/13/22 unknown) @ 06:49 by LYUDMILA Borden) (unknown) (no (unknown) (unknown) Family/Other (units (u nknown) date) Alcoholism unknown) (unknown) (no (unknown) (unknown) Family/Other (units (u nknown) date) Diabetes mellitus unknown) (unknown) (no (unknown) (unknown) Father Alcoholism (units (unknown) date) unknown) (unknown) (no (unknown) (unknown) Tonia Schneider MD (units (unknown) date) [Primary Care unknown) Provider] (unknown) (no (unknown) (unknown) Follow (units (unkno wn) date) up/Referrals: unknown) (unknown) (no (unknown) (unknown) Globulin 2.7 (units (u nknown) date) unknown) (unknown) (no (unknown) (unknown) Glucose 95 (units (unk nown) date) unknown) (unknown) (no (unknown) (unknown) Grandfather [...] extraction () unknown) (unknown) (no (unknown) (unknown) Has provider been (units (unknown) date) notified: Yes unknown) (unknown) (no (unknown) (unknown) Hct 30.0 L (units (unk nown) date) unknown) (unknown) (no (unknown) (unknown) Hgb 10.2 L (units (unk nown) date) unknown) (unknown) (no (unknown) (unknown) History of Present (units (unknown) date) Illness unknown) (unknown) (no (unknown) (unknown) Hospital Course (units (unknown) date) unknown) (unknown) (no (unknown) (unknown) Insomnia (units (unkno wn) date) unknown) (unknown) (no (unknown) (unknown) [facility] (units (unknown) date) [address] unknown) [place] [address] (unknown) (no (unknown) (unknown) Laboratory Results (units (unknown) date) - last 24 hr unknown) (unknown) (no (unknown) (unknown) Labs (units (unkno wn) date) unknown) (unknown) (no (unknown) (unknown) Labs: (units (unkno wn) date) unknown) (unknown) (no (unknown) (unknown) Lymph # (Auto) (units (unknown) date) 1100 unknown) (unknown) (no (unknown) (unknown) Lymph % (Auto) (units (unknown) date) 30.8 unknown) (unknown) (no (unknown) (unknown) MCH 26.5 (units (unkno wn) date) unknown) (unknown) (no (unknown) (unknown) MCHC 34.1 (units (unkn own) date) unknown) (unknown) (no (unknown) (unknown) MCV 77.8 L (units (unk nown) date) unknown) (unknown) (no (unknown) (unknown) Magnesium 1.9 (units ( unknown) date) unknown) (unknown) (no (unknown) (unknown) Medical History (units (unknown) date) (Updated 07/13/22 @ unknown) 11:47 by Gerardo Mccormick MD) (unknown) (no (unknown) (unknown) Menometrorrhagia (units (unknown) date) unknown) (unknown) (no (unknown) (unknown) Yates # (Auto) 200 (units (unknown) date) unknown) (unknown) (no (unknown) (unknown) Yates % (Auto) 5.3 (units (unknown) date) unknown) (unknown) (no (unknown) (unknown) Mother Diabetes (units (unknown) date) mellitus unknown) (unknown) (no (unknown) (unknown) Tonia Schneider MD (units (unknown) date) unknown) (unknown) (no (unknown) (unknown) Narrative: (units (unk nown) date) unknown) (unknown) (no (unknown) (unknown) Nasal Screen MRSA (units (unknown) date) (PCR) Not detected unknown) (unknown) (no (unknown) (unknown) Neut # (Auto) 2100 (units (unknown) date) unknown) (unknown) (no (unknown) (unknown) Neut % (Auto) 60.7 (units (unknown) date) unknown) (unknown) (no (unknown) (unknown) New (units (unkno wn) date) unknown) (unknown) (no (unknown) (unknown) Obesity (units (unkno wn) date) unknown) (unknown) (no (unknown) (unknown) Objective (units (unkn own) date) unknown) (unknown) (no (unknown) (unknown) Overweight (units (unk nown) date) unknown) (unknown) (no (unknown) (unknown) Oxygen Delivery (units (unknown) date) Method Room Air unknown) (unknown) (no (unknown) (unknown) PFSH (units (unkno wn) date) unknown) (unknown) (no (unknown) (unknown) Patient (units (unkno wn) date) Disposition: Home unknown) (unknown) (no (unknown) (unknown) Patient: (units (unkno wn) date) Sarah Connors unknown) MR#: M (unknown) (no (unknown) (unknown) Plt Count 116 L (units (unknown) date) unknown) (unknown) (no (unknown) (unknown) Potassium 4.2 (units ( unknown) date) unknown) (unknown) (no (unknown) (unknown) Prescriptions: (units (unknown) date) unknown) (unknown) (no (unknown) (unknown) Primary Care (units (u nknown) date) Provider: unknown) Tonia Schneider (unknown) (no (unknown) (unknown) Primary care (units (u nknown) date) physician: unknown) (unknown) (no (unknown) (unknown) Provider (units (unkno wn) date) unknown) (unknown) (no (unknown) (unknown) Provider: (units (unkn own) date) Vanesa Hall unknown) (unknown) (no (unknown) (unknown) Pulse Oximetry 98 (units (unknown) date) 97 unknown) (unknown) (no (unknown) (unknown) Pulse Oximetry 98 (units (unknown) date) 98 unknown) (unknown) (no (unknown) (unknown) Pulse Rate 62 63 (units (unknown) date) unknown) (unknown) (no (unknown) (unknown) Pulse Rate 66 67 (units (unknown) date) unknown) (unknown) (no (unknown) (unknown) Quality (units (unkno wn) date) unknown) (unknown) (no (unknown) (unknown) RBC 3.85 L (units (unk nown) date) unknown) (unknown) (no (unknown) (unknown) RDW 17.5 H (units (unk nown) date) unknown) (unknown) (no (unknown) (unknown) Reason For Exam: (units (unknown) date) EHOH unknown) (unknown) (no (unknown) (unknown) Reason for (units (unk nown) date) consultation: unknown) 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 (unknown) (no (unknown) (unknown) S/P myringotomy (units [...] (unknown) Social History (units (unknown) date) (Reviewed 07/12/22 unknown) @ 17:50 by LYUDMILA Do) (unknown) (no (unknown) (unknown) Sodium 132 L (units (u nknown) date) unknown) (unknown) (no (unknown) (unknown) Stand Alone Forms: (units (unknown) date) Patient Portal/API, unknown) Stroke Signs + Symptoms (unknown) (no (unknown) (unknown) Summary (units (unkno wn) date) unknown) (unknown) (no (unknown) (unknown) Surgical History (units (unknown) date) (Reviewed 07/13/22 unknown) @ 06:49 by LYUDMILA Borden) (unknown) (no (unknown) (unknown) This patient was (units (unknown) date) treated unknown) off?precedex infusion, she felt well and alert and (unknown) (no (unknown) (unknown) Total Bilirubin (units (unknown) date) 0.7 unknown) (unknown) (no (unknown) (unknown) Total Protein 6.2 (units (unknown) date) L unknown) (unknown) (no (unknown) (unknown) UTI, acute but (units (unknown) date) asymptomatic unknown) (unknown) (no (unknown) (unknown) VTE (units (unkno wn) date) unknown) (unknown) (no (unknown) (unknown) Visit (units (unkno wn) date) Report/Discharge unknown) Packet (unknown) (no (unknown) (unknown) Vital Signs (units (un known) date) unknown) (unknown) (no (unknown) (unknown) WBC 3.5 L (units (unkn own) date) unknown) (unknown) (no (unknown) (unknown) [Embedded Image (units (unknown) date) Not Available] unknown) (unknown) (no (unknown) (unknown) alcohol intake: (units (unknown) date) former unknown) (unknown) (no (unknown) (unknown) current (units (unkno wn) date) occupational unknown) exposures/hazards: Yes (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 with Pandemic ) (unknown) (no (unknown) (unknown) discharge. (units (unk nown) date) unknown) (unknown) (no (unknown) (unknown) eager to go home. (units (unknown) date) You confirm that unknown) she is connected the with a alcohol depend (unknown) (no (unknown) (unknown) education level: (units (unknown) date) college unknown) (unknown) (no (unknown) (unknown) ence support (units (u nknown) date) group. She will unknown) continue to avail herself of this following (unknown) (no (unknown) (unknown) renee/zoroastrianism: (units (unknown) date) Buddhist unknown) (unknown) (no (unknown) (unknown) fluoxetine 10 mg (units (unknown) date) capsule unknown) (unknown) (no (unknown) (unknown) household members: (units (unknown) date) children unknown) (unknown) (no (unknown) (unknown) hydroxyzine HCl 50 (units (unknown) date) mg tablet unknown) (unknown) (no (unknown) (unknown) marital status: (units (unknown) date) unknown) (unknown) (no (unknown) (unknown) multivitamin with (units (unknown) date) folic acid unknown) [Tab-A-Kael] 400 mcg Tablet (unknown) (no (unknown) (unknown) number of (units (unkn own) date) children: 1 unknown) (unknown) (no (unknown) (unknown) occupational (units (u nknown) date) status: employed unknown) (unknown) (no (unknown) (unknown) pantoprazole 40 mg (units (unknown) date) Tablet,Delayed unknown) Release (Dr/Ec) (unknown) (no (unknown) (unknown) quetiapine 300 mg (units (unknown) date) tablet unknown) (unknown) (no (unknown) (unknown) second hand (units (un known) date) exposure: No unknown) (growing up as a child - not currently) (unknown) (no (unknown) (unknown) special renee (units ( unknown) date) needs: No unknown) (unknown) (no (unknown) (unknown) substance use (units ( unknown) date) type: does not use unknown) (unknown) (no (unknown) (unknown) thiamine (units (unkno wn) date) mononitrate (vit unknown) B1) 100 mg Tablet Result panel [id number] (unknown) (no (unknown) (unknown) (no value) (units (unk nown) date) unknown) (unknown) (no (unknown) (unknown) (past 8 hours): (units (unknown) date) unknown) (unknown) (no (unknown) (unknown) [id number] (units (unkn own) date) unknown) (unknown) (no (unknown) (unknown) 07/12/22 16:28 (units (unknown) date) unknown) (unknown) (no (unknown) (unknown) 07/13/22 07/14/22 (units (unknown) date) 07/14/22 unknown) (unknown) (no (unknown) (unknown) 07/13/22 06:12 (units (unknown) date) unknown) (unknown) (no (unknown) (unknown) 07/13/22 06:41 (units (unknown) date) unknown) (unknown) (no (unknown) (unknown) 07/13/22 11:35 (units (unknown) date) unknown) (unknown) (no (unknown) (unknown) 07/14/22 08:20 (units (unknown) date) unknown) (unknown) (no (unknown) (unknown) 07/14/22 (units (unkno wn) date) unknown) (unknown) (no (unknown) (unknown) 09:00 07/14/22 (units (unknown) date) unknown) (unknown) (no (unknown) (unknown) 09:12 (units (unkno wn) date) unknown) (unknown) (no (unknown) (unknown) 1 tab PO DAILY (units (unknown) date) Qty: 30 0RF unknown) (unknown) (no (unknown) (unknown) 10 mg PO DAILY (units (unknown) date) unknown) (unknown) (no (unknown) (unknown) 100 mg PO DAILY (units (unknown) date) Qty: 30 0RF unknown) (unknown) (no (unknown) (unknown) 10:00 07/14/22 (units (unknown) date) unknown) (unknown) (no (unknown) (unknown) 10:04 (units (unkno wn) date) unknown) (unknown) (no (unknown) (unknown) 15:28 08:20 08:20 (units (unknown) date) unknown) (unknown) (no (unknown) (unknown) 300 mg PO DAILY (units (unknown) date) unknown) (unknown) (no (unknown) (unknown) 40 mg PO 0700 Qty: (units (unknown) date) 30 0RF unknown) (unknown) (no (unknown) (unknown) 50 mg PO DAILY (units (unknown) date) unknown) (unknown) (no (unknown) (unknown) ALT 17 (units (unkno wn) date) unknown) (unknown) (no (unknown) (unknown) AST 45 H (units (unkno wn) date) unknown) (unknown) (no (unknown) (unknown) Acute alcohol (units ( unknown) date) intoxication and unknown) withdrawal (unknown) (no (unknown) (unknown) Age/Sex: 31 / F (units (unknown) date) unknown) (unknown) (no (unknown) (unknown) Albumin 3.5 (units (un known) date) unknown) (unknown) (no (unknown) (unknown) Albumin/Globulin (units (unknown) date) Ratio 1.3 unknown) (unknown) (no (unknown) (unknown) Alcohol withdrawal (units (unknown) date) delirium, acute, unknown) hyperactive (unknown) (no (unknown) (unknown) Alcoholism (units (unk nown) date) unknown) (unknown) (no (unknown) (unknown) Alkaline (units (unkno wn) date) Phosphatase 68 unknown) (unknown) (no (unknown) (unknown) Anemia (-2018) (units (unknown) date) unknown) (unknown) (no (unknown) (unknown) BUN 5 L (units (unkno wn) date) unknown) (unknown) (no (unknown) (unknown) BUN/Creatinine (units (unknown) date) Ratio 7.9 unknown) (unknown) (no (unknown) (unknown) Vanesa (units (unkno wn) date) MD Rafael unknown) (unknown) (no (unknown) (unknown) Baso # (Auto) 0 (units (unknown) date) unknown) (unknown) (no (unknown) (unknown) Baso % (Auto) 0.8 (units (unknown) date) unknown) (unknown) (no (unknown) (unknown) Blood Pressure (units (unknown) date) 106/74 unknown) (unknown) (no (unknown) (unknown) Blood Pressure (units (unknown) date) 112/63 unknown) (unknown) (no (unknown) (unknown) Calcium 8.5 (units (un known) date) unknown) (unknown) (no (unknown) (unknown) Carbon Dioxide 27 (units (unknown) date) unknown) (unknown) (no (unknown) (unknown) Chief complaint: (units (unknown) date) Acute alcohol unknown) withdrawal (unknown) (no (unknown) (unknown) Chloride 101 (units (u nknown) date) unknown) (unknown) (no (unknown) (unknown) Cognitive/behavior (units (unknown) date) al status at unknown) discharge: at baseline, oriented (unknown) (no (unknown) (unknown) Comment: (units (unkno wn) date) unknown) (unknown) (no (unknown) (unknown) Consult to (units (unk nown) date) Dietitian, Adult unknown) Routine (unknown) (no (unknown) (unknown) Consult to WINDOWS MIGRATION TECHNICIAN - (units (unknown) date) 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 unknown) Stat (unknown) (no (unknown) (unknown) Consult to Social (units (unknown) date) Services Routine unknown) (unknown) (no (unknown) (unknown) Consult to (units (unk nown) date) Tele-baseball scout unknown) Routine (unknown) (no (unknown) (unknown) Consulting (units (unk nown) date) Provider: Intercept unknown) Tele-intensivists (unknown) (no (unknown) (unknown) Consults: (units (unkn own) date) unknown) (unknown) (no (unknown) (unknown) Continued (units (unkn own) date) unknown) (unknown) (no (unknown) (unknown) Creatinine 0.63 (units (unknown) date) unknown) (unknown) (no (unknown) (unknown) : 1990 (units (unknown) date) Acct:[id number] unknown) (unknown) (no (unknown) (unknown) Date Patient Seen: (units (unknown) date) 07/14/22 unknown) (unknown) (no (unknown) (unknown) Date of Service: (units (unknown) date) 07/13/22 unknown) (unknown) (no (unknown) (unknown) Date of admission: (units (unknown) date) unknown) (unknown) (no (unknown) (unknown) Deep Vein (units (unkn own) date) Thrombosis/Pulmonar unknown) y Embolism Present on Admission: Yes (unknown) (no (unknown) (unknown) Discharge Data (units (unknown) date) unknown) (unknown) (no (unknown) (unknown) Discharge (units (unkn own) date) Diagnosis: unknown) (unknown) (no (unknown) (unknown) Discharge Plan (units (unknown) date) unknown) (unknown) (no (unknown) (unknown) Discharge (units (unkn own) date) Providers unknown) (unknown) (no (unknown) (unknown) Discharge Summary (units (unknown) date) unknown) (unknown) (no (unknown) (unknown) Discharge orders + (units (unknown) date) Medications unknown) (unknown) (no (unknown) (unknown) Discharge (units (unkn own) date) provider: unknown) (unknown) (no (unknown) (unknown) Eos # (Auto) 100 (units (unknown) date) unknown) (unknown) (no (unknown) (unknown) Eos % (Auto) 2.4 (units (unknown) date) unknown) (unknown) (no (unknown) (unknown) Estimated GFR > 60 (units (unknown) date) unknown) (unknown) (no (unknown) (unknown) Exam (units (unkno wn) date) unknown) (unknown) (no (unknown) (unknown) Family History (units (unknown) date) (Reviewed 07/13/22 unknown) @ 06:49 by LYUDMILA Borden) (unknown) (no (unknown) (unknown) Family/Other (units (u nknown) date) Alcoholism unknown) (unknown) (no (unknown) (unknown) Family/Other (units (u nknown) date) Diabetes mellitus unknown) (unknown) (no (unknown) (unknown) Father Alcoholism (units (unknown) date) unknown) (unknown) (no (unknown) (unknown) Tonia Schneider MD (units (unknown) date) [Primary Care unknown) Provider] (unknown) (no (unknown) (unknown) Follow (units (unkno wn) date) up/Referrals: unknown) (unknown) (no (unknown) (unknown) Functional status (units (unknown) date) at discharge: unknown) independent ambulation (unknown) (no (unknown) (unknown) Globulin 2.7 (units (u nknown) date) unknown) (unknown) (no (unknown) (unknown) Glucose 95 (units (unk nown) date) unknown) (unknown) (no (unknown) (unknown) Grandfather [...] extraction () unknown) (unknown) (no (unknown) (unknown) Has provider been (units (unknown) date) notified: Yes unknown) (unknown) (no (unknown) (unknown) Hct 30.0 L (units (unk nown) date) unknown) (unknown) (no (unknown) (unknown) Hgb 10.2 L (units (unk nown) date) unknown) (unknown) (no (unknown) (unknown) History of Present (units (unknown) date) Illness unknown) (unknown) (no (unknown) (unknown) Hospital Course (units (unknown) date) unknown) (unknown) (no (unknown) (unknown) Insomnia (units (unkno wn) date) unknown) (unknown) (no (unknown) (unknown) [facility] (units (unknown) date) [address]) [place] [address] (unknown) (no (unknown) (unknown) Laboratory Results (units (unknown) date) - last 24 hr unknown) (unknown) (no (unknown) (unknown) Labs (units (unkno wn) date) unknown) (unknown) (no (unknown) (unknown) Labs: (units (unkno wn) date) unknown) (unknown) (no (unknown) (unknown) Lymph # (Auto) (units (unknown) date) 1100 unknown) (unknown) (no (unknown) (unknown) Lymph % (Auto) (units (unknown) date) 30.8 unknown) (unknown) (no (unknown) (unknown) MCH 26.5 (units (unkno wn) date) unknown) (unknown) (no (unknown) (unknown) MCHC 34.1 (units (unkn own) date) unknown) (unknown) (no (unknown) (unknown) MCV 77.8 L (units (unk nown) date) unknown) (unknown) (no (unknown) (unknown) Magnesium 1.9 (units ( unknown) date) unknown) (unknown) (no (unknown) (unknown) Medical History (units (unknown) date) (Updated 07/13/22 @ unknown) 11:47 by Gerardo Mccormick MD) (unknown) (no (unknown) (unknown) Menometrorrhagia (units (unknown) date) unknown) (unknown) (no (unknown) (unknown) Yates # (Auto) 200 (units (unknown) date) unknown) (unknown) (no (unknown) (unknown) Yates % (Auto) 5.3 (units (unknown) date) unknown) (unknown) (no (unknown) (unknown) Mother Diabetes (units (unknown) date) mellitus unknown) (unknown) (no (unknown) (unknown) Tonia Schneider MD (units (unknown) date) unknown) (unknown) (no (unknown) (unknown) Narrative: (units (unk nown) date) unknown) (unknown) (no (unknown) (unknown) Nasal Screen MRSA (units (unknown) date) (PCR) Not detected unknown) (unknown) (no (unknown) (unknown) Neut # (Auto) 2100 (units (unknown) date) unknown) (unknown) (no (unknown) (unknown) Neut % (Auto) 60.7 (units (unknown) date) unknown) (unknown) (no (unknown) (unknown) New (units (unkno wn) date) unknown) (unknown) (no (unknown) (unknown) Obesity (units (unkno wn) date) unknown) (unknown) (no (unknown) (unknown) Objective (units (unkn own) date) unknown) (unknown) (no (unknown) (unknown) Overall status at (units (unknown) date) discharge: patient unknown) is back to baseline (unknown) (no (unknown) (unknown) Overweight (units (unk nown) date) unknown) (unknown) (no (unknown) (unknown) Oxygen Delivery (units (unknown) date) Method Room Air unknown) (unknown) (no (unknown) (unknown) PFSH (units (unkno wn) date) unknown) (unknown) (no (unknown) (unknown) Patient (units (unkno wn) date) Disposition: Home unknown) (unknown) (no (unknown) (unknown) Patient: (units (unkno wn) date) Sarah Connors R unknown) MR#: M (unknown) (no (unknown) (unknown) Plt Count 116 L (units (unknown) date) unknown) (unknown) (no (unknown) (unknown) Potassium 4.2 (units ( unknown) date) unknown) (unknown) (no (unknown) (unknown) Prescriptions: (units (unknown) date) unknown) (unknown) (no (unknown) (unknown) Primary Care (units (u nknown) date) Provider: unknown) Tonia Schneider (unknown) (no (unknown) (unknown) Primary care (units (u nknown) date) physician: unknown) (unknown) (no (unknown) (unknown) Provider (units (unkno wn) date) unknown) (unknown) (no (unknown) (unknown) Provider: (units (unkn own) date) Vanesa Hall unknown) (unknown) (no (unknown) (unknown) Pulse Oximetry 98 (units (unknown) date) 97 unknown) (unknown) (no (unknown) (unknown) Pulse Oximetry 98 (units (unknown) date) 98 unknown) (unknown) (no (unknown) (unknown) Pulse Rate 62 63 (units (unknown) date) unknown) (unknown) (no (unknown) (unknown) Pulse Rate 66 67 (units (unknown) date) unknown) (unknown) (no (unknown) (unknown) Quality (units (unkno wn) date) unknown) (unknown) (no (unknown) (unknown) RBC 3.85 L (units (unk nown) date) unknown) (unknown) (no (unknown) (unknown) RDW 17.5 H (units (unk nown) date) unknown) (unknown) (no (unknown) (unknown) Reason For Exam: (units (unknown) date) EHOH unknown) (unknown) (no (unknown) (unknown) Reason for (units (unk nown) date) consultation: unknown) 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 (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) (no (unknown) (unknown) S/P myringotomy (units [...] (unknown) Social History (units (unknown) date) (Reviewed 07/12/22 unknown) @ 17:50 by Juliet Paz RECREATION PROGRAMMER) (unknown) (no (unknown) (unknown) Sodium 132 L (units (u nknown) date) unknown) (unknown) (no (unknown) (unknown) Stand Alone Forms: (units (unknown) date) Patient Portal/API, unknown) Stroke Signs + Symptoms (unknown) (no (unknown) (unknown) Status at (units (unkn own) date) Discharge unknown) (unknown) (no (unknown) (unknown) Summary (units (unkno wn) date) unknown) (unknown) (no (unknown) (unknown) Surgical History (units (unknown) date) (Reviewed 07/13/22 unknown) @ 06:49 by LYUDMILA Borden) (unknown) (no (unknown) (unknown) This patient was (units (unknown) date) treated unknown) off?precedex infusion, she felt well and alert and (unknown) (no (unknown) (unknown) Total Bilirubin (units (unknown) date) 0.7 unknown) (unknown) (no (unknown) (unknown) Total Protein 6.2 (units (unknown) date) L unknown) (unknown) (no (unknown) (unknown) UTI, acute but (units (unknown) date) asymptomatic unknown) (unknown) (no (unknown) (unknown) VTE (units (unkno wn) date) unknown) (unknown) (no (unknown) (unknown) Visit (units (unkno wn) date) Report/Discharge unknown) Packet (unknown) (no (unknown) (unknown) Vital Signs (units (un known) date) unknown) (unknown) (no (unknown) (unknown) WBC 3.5 L (units (unkn own) date) unknown) (unknown) (no (unknown) (unknown) [Embedded Image (units (unknown) date) Not Available] unknown) (unknown) (no (unknown) (unknown) alcohol intake: (units (unknown) date) former unknown) (unknown) (no (unknown) (unknown) current (units (unkno wn) date) occupational unknown) exposures/hazards: Yes (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 with Pandemic ) (unknown) (no (unknown) (unknown) discharge. (units (unk nown) date) unknown) (unknown) (no (unknown) (unknown) eager to go home. (units (unknown) date) You confirm that unknown) she is connected the with a alcohol depend (unknown) (no (unknown) (unknown) education level: (units (unknown) date) college unknown) (unknown) (no (unknown) (unknown) ence support (units (u nknown) date) group. She will unknown) continue to avail herself of this following (unknown) (no (unknown) (unknown) renee/zoroastrianism: (units (unknown) date) Buddhist unknown) (unknown) (no (unknown) (unknown) fluoxetine 10 mg (units (unknown) date) capsule unknown) (unknown) (no (unknown) (unknown) household members: (units (unknown) date) children unknown) (unknown) (no (unknown) (unknown) hydroxyzine HCl 50 (units (unknown) date) mg tablet unknown) (unknown) (no (unknown) (unknown) marital status: (units (unknown) date) unknown) (unknown) (no (unknown) (unknown) multivitamin with (units (unknown) date) folic acid unknown) [Tab-[id number]] 400 mcg Tablet (unknown) (no (unknown) (unknown) number of (units (unkn own) date) children: 1 unknown) (unknown) (no (unknown) (unknown) occupational (units (u nknown) date) status: employed unknown) (unknown) (no (unknown) (unknown) pantoprazole 40 mg (units (unknown) date) Tablet,Delayed unknown) Release (Dr/Ec) (unknown) (no (unknown) (unknown) quetiapine 300 mg (units (unknown) date) tablet unknown) (unknown) (no (unknown) (unknown) second hand (units (un known) date) exposure: No unknown) (growing up as a child - not currently) (unknown) (no (unknown) (unknown) special renee (units ( unknown) date) needs: No unknown) (unknown) (no (unknown) (unknown) substance use (units ( unknown) date) type: does not use unknown) (unknown) (no (unknown) (unknown) thiamine (units (unkno wn) date) mononitrate (vit unknown) B1) 100 mg Tablet Result panel [id number] (unknown) (no (unknown) (unknown) (no value) (units (unk nown) date) unknown) (unknown) (no (unknown) (unknown) (past 8 hours): (units (unknown) date) unknown) (unknown) (no (unknown) (unknown) [id number] (units (unkn own) date) unknown) (unknown) (no (unknown) (unknown) 07/12/22 16:28 (units (unknown) date) unknown) (unknown) (no (unknown) (unknown) 07/13/22 07/14/22 (units (unknown) date) 07/14/22 unknown) (unknown) (no (unknown) (unknown) 07/13/22 06:12 (units (unknown) date) unknown) (unknown) (no (unknown) (unknown) 07/13/22 06:41 (units (unknown) date) unknown) (unknown) (no (unknown) (unknown) 07/13/22 11:35 (units (unknown) date) unknown) (unknown) (no (unknown) (unknown) 07/14/22 08:20 (units (unknown) date) unknown) (unknown) (no (unknown) (unknown) 07/14/22 (units (unkno wn) date) unknown) (unknown) (no (unknown) (unknown) 09:00 07/14/22 (units (unknown) date) unknown) (unknown) (no (unknown) (unknown) 09:12 (units (unkno wn) date) unknown) (unknown) (no (unknown) (unknown) 1 tab PO DAILY (units (unknown) date) Qty: 30 0RF unknown) (unknown) (no (unknown) (unknown) 10 mg PO DAILY (units (unknown) date) unknown) (unknown) (no (unknown) (unknown) 100 mg PO DAILY (units (unknown) date) Qty: 30 0RF unknown) (unknown) (no (unknown) (unknown) 10:00 07/14/22 (units (unknown) date) unknown) (unknown) (no (unknown) (unknown) 10:04 (units (unkno wn) date) unknown) (unknown) (no (unknown) (unknown) 11.5 and 35.3 (units ( unknown) date) respectively unknown) glucose is 111 calcium 8.0 AST 67 urinalysis (unknown) (no (unknown) (unknown) 15:28 08:20 08:20 (units (unknown) date) unknown) (unknown) (no (unknown) (unknown) 20 and she was (units (unknown) date) deemed to medically unknown) unstable for transfer to rehab, ED requested (unknown) (no (unknown) (unknown) 300 mg PO DAILY (units (unknown) date) unknown) (unknown) (no (unknown) (unknown) 40 mg PO 0700 Qty: (units (unknown) date) 30 0RF unknown) (unknown) (no (unknown) (unknown) 50 mg PO DAILY (units (unknown) date) unknown) (unknown) (no (unknown) (unknown) ALT 17 (units (unkno wn) date) unknown) (unknown) (no (unknown) (unknown) AST 45 H (units (unkno wn) date) unknown) (unknown) (no (unknown) (unknown) Acute alcohol (units ( unknown) date) intoxication and unknown) withdrawal (unknown) (no (unknown) (unknown) Age/Sex: 31 / F (units (unknown) date) unknown) (unknown) (no (unknown) (unknown) Albumin 3.5 (units (un known) date) unknown) (unknown) (no (unknown) (unknown) Albumin/Globulin (units (unknown) date) Ratio 1.3 unknown) (unknown) (no (unknown) (unknown) Alcohol withdrawal (units (unknown) date) delirium, acute, unknown) hyperactive (unknown) (no (unknown) (unknown) Alcoholism (units (unk nown) date) unknown) (unknown) (no (unknown) (unknown) Alkaline (units (unkno wn) date) Phosphatase 68 unknown) (unknown) (no (unknown) (unknown) Anemia (-2018) (units (unknown) date) unknown) (unknown) (no (unknown) (unknown) BUN 5 L (units (unkno wn) date) unknown) (unknown) (no (unknown) (unknown) BUN/Creatinine (units (unknown) date) Ratio 7.9 unknown) (unknown) (no (unknown) (unknown) Vanesa (units (unkno wn) date) MD Rafael unknown) (unknown) (no (unknown) (unknown) Baso # (Auto) 0 (units (unknown) date) unknown) (unknown) (no (unknown) (unknown) Baso % (Auto) 0.8 (units (unknown) date) unknown) (unknown) (no (unknown) (unknown) Blood Pressure (units (unknown) date) 106/74 unknown) (unknown) (no (unknown) (unknown) Blood Pressure (units (unknown) date) 112/63 unknown) (unknown) (no (unknown) (unknown) Calcium 8.5 (units (un known) date) unknown) (unknown) (no (unknown) (unknown) Carbon Dioxide 27 (units (unknown) date) unknown) (unknown) (no (unknown) (unknown) Chief complaint: (units (unknown) date) Acute alcohol unknown) withdrawal (unknown) (no (unknown) (unknown) Chloride 101 (units (u nknown) date) unknown) (unknown) (no (unknown) (unknown) Cognitive/behavior (units (unknown) date) al status at unknown) discharge: at baseline, oriented (unknown) (no (unknown) (unknown) Comment: (units (unkno wn) date) unknown) (unknown) (no (unknown) (unknown) Consult to (units (unk nown) date) Dietitian, Adult unknown) Routine (unknown) (no (unknown) (unknown) Consult to WINDOWS MIGRATION TECHNICIAN - (units (unknown) date) 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 unknown) Stat (unknown) (no (unknown) (unknown) Consult to Social (units (unknown) date) Services Routine unknown) (unknown) (no (unknown) (unknown) Consult to (units (unk nown) date) Tele-baseball scout unknown) Routine (unknown) (no (unknown) (unknown) Consulting (units (unk nown) date) Provider: Intercept unknown) Tele-intensivists (unknown) (no (unknown) (unknown) Consults: (units (unkn own) date) unknown) (unknown) (no (unknown) (unknown) Continued (units (unkn own) date) unknown) (unknown) (no (unknown) (unknown) Creatinine 0.63 (units (unknown) date) unknown) (unknown) (no (unknown) (unknown) : 1990 (units (unknown) date) Acct:[id number] unknown) (unknown) (no (unknown) (unknown) Date Patient Seen: (units (unknown) date) 07/14/22 unknown) (unknown) (no (unknown) (unknown) Date of Service: (units (unknown) date) 07/13/22 unknown) (unknown) (no (unknown) (unknown) Date of admission: (units (unknown) date) unknown) (unknown) (no (unknown) (unknown) Deep Vein (units (unkn own) date) Thrombosis/Pulmonar unknown) y Embolism Present on Admission: Yes (unknown) (no (unknown) (unknown) Discharge Data (units (unknown) date) unknown) (unknown) (no (unknown) (unknown) Discharge (units (unkn own) date) Diagnosis: unknown) (unknown) (no (unknown) (unknown) Discharge Plan (units (unknown) date) unknown) (unknown) (no (unknown) (unknown) Discharge (units (unkn own) date) Providers unknown) (unknown) (no (unknown) (unknown) Discharge Summary (units (unknown) date) unknown) (unknown) (no (unknown) (unknown) Discharge orders + (units (unknown) date) Medications unknown) (unknown) (no (unknown) (unknown) Discharge (units (unkn own) date) provider: unknown) (unknown) (no (unknown) (unknown) Eos # (Auto) 100 (units (unknown) date) unknown) (unknown) (no (unknown) (unknown) Eos % (Auto) 2.4 (units (unknown) date) unknown) (unknown) (no (unknown) (unknown) Estimated GFR > 60 (units (unknown) date) unknown) (unknown) (no (unknown) (unknown) Exam (units (unkno wn) date) unknown) (unknown) (no (unknown) (unknown) Family History (units (unknown) date) (Reviewed 07/13/22 unknown) @ 06:49 by LYUDMILA Borden) (unknown) (no (unknown) (unknown) Family/Other (units (u nknown) date) Alcoholism unknown) (unknown) (no (unknown) (unknown) Family/Other (units (u nknown) date) Diabetes mellitus unknown) (unknown) (no (unknown) (unknown) Father Alcoholism (units (unknown) date) unknown) (unknown) (no (unknown) (unknown) Tonia Schneider MD (units (unknown) date) [Primary Care unknown) Provider] (unknown) (no (unknown) (unknown) Follow (units (unkno wn) date) up/Referrals: unknown) (unknown) (no (unknown) (unknown) Functional status (units (unknown) date) at discharge: unknown) independent ambulation (unknown) (no (unknown) (unknown) Globulin 2.7 (units (u nknown) date) unknown) (unknown) (no (unknown) (unknown) Glucose 95 (units (unk nown) date) unknown) (unknown) (no (unknown) (unknown) Grandfather [...] extraction () unknown) (unknown) (no (unknown) (unknown) Has provider been (units (unknown) date) notified: Yes unknown) (unknown) (no (unknown) (unknown) Hct 30.0 L (units (unk nown) date) unknown) (unknown) (no (unknown) (unknown) Hgb 10.2 L (units (unk nown) date) unknown) (unknown) (no (unknown) (unknown) History of Present (units (unknown) date) Illness unknown) (unknown) (no (unknown) (unknown) Hospital Course (units (unknown) date) unknown) (unknown) (no (unknown) (unknown) Hospital Course: (units (unknown) date) unknown) (unknown) (no (unknown) (unknown) Insomnia (units (unkno wn) date) unknown) (unknown) (no (unknown) (unknown) [facility] (units (unknown) date) [address] unknown) [place] [address] (unknown) (no (unknown) (unknown) May of 2022 (units (unknown) date) with similar unknown) symptoms.? She came in complaining of needing help, (unknown) (no (unknown) (unknown) Laboratory Results (units (unknown) date) - last 24 hr unknown) (unknown) (no (unknown) (unknown) Labs (units (unkno wn) date) unknown) (unknown) (no (unknown) (unknown) Labs: (units (unkno wn) date) unknown) (unknown) (no (unknown) (unknown) Lymph # (Auto) (units (unknown) date) 1100 unknown) (unknown) (no (unknown) (unknown) Lymph % (Auto) (units (unknown) date) 30.8 unknown) (unknown) (no (unknown) (unknown) MCH 26.5 (units (unkno wn) date) unknown) (unknown) (no (unknown) (unknown) MCHC 34.1 (units (unkn own) date) unknown) (unknown) (no (unknown) (unknown) MCV 77.8 L (units (unk nown) date) unknown) (unknown) (no (unknown) (unknown) Magnesium 1.9 (units ( unknown) date) unknown) (unknown) (no (unknown) (unknown) Medical History (units (unknown) date) (Updated 07/13/22 @ unknown) 11:47 by Gerardo Mccormick MD) (unknown) (no (unknown) (unknown) Menometrorrhagia (units (unknown) date) unknown) (unknown) (no (unknown) (unknown) Yates # (Auto) 200 (units (unknown) date) unknown) (unknown) (no (unknown) (unknown) Yates % (Auto) 5.3 (units (unknown) date) unknown) (unknown) (no (unknown) (unknown) Mother Diabetes (units (unknown) date) mellitus unknown) (unknown) (no (unknown) (unknown) Tonia Schneider MD (units (unknown) date) unknown) (unknown) (no (unknown) (unknown) Narrative: (units (unk nown) date) unknown) (unknown) (no (unknown) (unknown) Nasal Screen MRSA (units (unknown) date) (PCR) Not detected unknown) (unknown) (no (unknown) (unknown) Neut # (Auto) 2100 (units (unknown) date) unknown) (unknown) (no (unknown) (unknown) Neut % (Auto) 60.7 (units (unknown) date) unknown) (unknown) (no (unknown) (unknown) New (units (unkno wn) date) unknown) (unknown) (no (unknown) (unknown) Obesity (units (unkno wn) date) unknown) (unknown) (no (unknown) (unknown) Objective (units (unkn own) date) unknown) (unknown) (no (unknown) (unknown) Overall status at (units (unknown) date) discharge: patient unknown) is back to baseline (unknown) (no (unknown) (unknown) Overweight (units (unk nown) date) unknown) (unknown) (no (unknown) (unknown) Oxygen Delivery (units (unknown) date) Method Room Air unknown) (unknown) (no (unknown) (unknown) PFSH (units (unkno wn) date) unknown) (unknown) (no (unknown) (unknown) Patient (units (unkno wn) date) Disposition: Home unknown) (unknown) (no (unknown) (unknown) Patient provided a (units (unknown) date) history for 'I went unknown) on a castañeda' for 12 days. Per the ED (unknown) (no (unknown) (unknown) Patient: (units (unkno wn) date) Sarah Connors unknown) MR#: M (unknown) (no (unknown) (unknown) Plt Count 116 L (units (unknown) date) unknown) (unknown) (no (unknown) (unknown) Potassium 4.2 (units ( unknown) date) unknown) (unknown) (no (unknown) (unknown) Prescriptions: (units (unknown) date) unknown) (unknown) (no (unknown) (unknown) Primary Care (units (u nknown) date) Provider: unknown) Tonia Schneider (unknown) (no (unknown) (unknown) Primary care (units (u nknown) date) physician: unknown) (unknown) (no (unknown) (unknown) Provider (units (unkno wn) date) unknown) (unknown) (no (unknown) (unknown) Provider: (units (unkn own) date) Vanesa Hall unknown) (unknown) (no (unknown) (unknown) Pulse Oximetry 98 (units (unknown) date) 97 unknown) (unknown) (no (unknown) (unknown) Pulse Oximetry 98 (units (unknown) date) 98 unknown) (unknown) (no (unknown) (unknown) Pulse Rate 62 63 (units (unknown) date) unknown) (unknown) (no (unknown) (unknown) Pulse Rate 66 67 (units (unknown) date) unknown) (unknown) (no (unknown) (unknown) Quality (units (unkno wn) date) unknown) (unknown) (no (unknown) (unknown) RBC 3.85 L (units (unk nown) date) unknown) (unknown) (no (unknown) (unknown) RDW 17.5 H (units (unk nown) date) unknown) (unknown) (no (unknown) (unknown) Reason For Exam: (units (unknown) date) EHOH unknown) (unknown) (no (unknown) (unknown) Reason for (units (unk n) date) consultation: unknown) 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 (unknown) (no (unknown) (unknown) S/P myringotomy (units (unknown) date) with insertion of unknown) tube (unknown) (no (unknown) (unknown) (spontaneous (units (unknown) date) vaginal delivery) unknown) (-09/05/18) (unknown) (no (unknown) (unknown) She remained in (units (unknown) date) the ED awaiting a unknown) bed and was receiving oral Ativan, but (unknown) (no (unknown) (unknown) Signed By: (units (unk nown) date) unknown) (unknown) (no (unknown) (unknown) Smoker (units (unkno wn) date) unknown) (unknown) (no (unknown) (unknown) Smoking Status: (units (unknown) date) Former smoker unknown) (unknown) (no (unknown) (unknown) Social History (units (unknown) date) (Reviewed 07/12/22 unknown) @ 17:50 by LYUDMILA Do) (unknown) (no (unknown) (unknown) Sodium 132 L (units (u nknown) date) unknown) (unknown) (no (unknown) (unknown) Stand Alone Forms: (units (unknown) date) Patient Portal/API, unknown) Stroke Signs + Symptoms (unknown) (no (unknown) (unknown) Status at (units (unkn own) date) Discharge unknown) (unknown) (no (unknown) (unknown) Summary (units (unkno wn) date) unknown) (unknown) (no (unknown) (unknown) Surgical History (units (unknown) date) (Reviewed 07/13/22 unknown) @ 06:49 by LYUDMILA Borden) (unknown) (no (unknown) (unknown) This patient was (units (unknown) date) treated unknown) off?precedex infusion, she felt well and alert and (unknown) (no (unknown) (unknown) Total Bilirubin (units (unknown) date) 0.7 unknown) (unknown) (no (unknown) (unknown) Total Protein 6.2 (units (unknown) date) L unknown) (unknown) (no (unknown) (unknown) UTI, acute but (units (unknown) date) asymptomatic unknown) (unknown) (no (unknown) (unknown) VTE (units (unkno wn) date) unknown) (unknown) (no (unknown) (unknown) Visit (units (unkno wn) date) Report/Discharge unknown) Packet (unknown) (no (unknown) (unknown) Vital Signs (units (un known) date) unknown) (unknown) (no (unknown) (unknown) WBC 3.5 L (units (unkn own) date) unknown) (unknown) (no (unknown) (unknown) [Embedded Image (units (unknown) date) Not Available] unknown) (unknown) (no (unknown) (unknown) alcohol intake: (units (unknown) date) former unknown) (unknown) (no (unknown) (unknown) an ICU bed. She (units (unknown) date) also had a concern unknown) for urinary tract infection and had been (unknown) (no (unknown) (unknown) appears to have (units (unknown) date) limited history unknown) currently due to intoxication.? She stated that (unknown) (no (unknown) (unknown) chucking from it.? (units (unknown) date) She stated that she unknown) drank 750 mL at a time.? This 3 weeks ago (unknown) (no (unknown) (unknown) current (units (unkno wn) date) occupational unknown) exposures/hazards: Yes (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 with Pandemic ) (unknown) (no (unknown) (unknown) daily since then.? (units (unknown) date) She wants rehab.? unknown) She has been [place] [facility] [place] in (unknown) (no (unknown) (unknown) developed (units (unkno wn) date) increasing unknown) agitation and then DTs. Her CIWA score went from 12 to over (unknown) (no (unknown) (unknown) discharge. (units (unk nown) date) unknown) (unknown) (no (unknown) (unknown) eager to go home. (units (unknown) date) You confirm that unknown) she is connected the with a alcohol depend (unknown) (no (unknown) (unknown) education level: (units (unknown) date) college unknown) (unknown) (no (unknown) (unknown) ence support (units (u nknown) date) group. She will unknown) continue to avail herself of this following (unknown) (no (unknown) (unknown) renee/zoroastrianism: (units (unknown) date) Buddhist unknown) (unknown) (no (unknown) (unknown) fluoxetine 10 mg (units (unknown) date) capsule unknown) (unknown) (no (unknown) (unknown) frequent visitor (units (unknown) date) for alcohol related unknown) complaints through 2019, and she presented (unknown) (no (unknown) (unknown) given one dose of (units (unknown) date) oral cephalexin for unknown) this and was transitioned to IV Cipro 400 (unknown) (no (unknown) (unknown) heart rate 119 (units (unknown) date) respiratory rate 18 unknown) oxygen saturation of 97% on room air she (unknown) (no (unknown) (unknown) household members: (units (unknown) date) children unknown) (unknown) (no (unknown) (unknown) hydroxyzine HCl 50 (units (unknown) date) mg tablet unknown) (unknown) (no (unknown) (unknown) indicated many (units ( unknown) date) bacteria alcohol unknown) level was 338 and COVID-19 PCR done on July 12 (unknown) (no (unknown) (unknown) marital status: (units (unknown) date) unknown) (unknown) (no (unknown) (unknown) mg IV BID for (units ( unknown) date) completion of unknown) treatment.. She is afebrile, blood pressure 93/54 (unknown) (no (unknown) (unknown) multivitamin with (units (unknown) date) folic acid unknown) [Tab-A-Kael] 400 mcg Tablet (unknown) (no (unknown) (unknown) notes, Sarah (units (unknown) date) 'is a 31-year-old unknown) female with history of alcohol abuse and (unknown) (no (unknown) (unknown) number of (units (unkn own) date) children: 1 unknown) (unknown) (no (unknown) (unknown) occupational (units (u nknown) date) status: employed unknown) (unknown) (no (unknown) (unknown) pantoprazole 40 mg (units (unknown) date) Tablet,Delayed unknown) Release (Dr/Ec) (unknown) (no (unknown) (unknown) presentation, and (units (unknown) date) stated that she unknown) took the bottle upside down and started (unknown) (no (unknown) (unknown) prior to (units (unkno wn) date) presentation was unknown) the beginning of the relapse and she was drinking (unknown) (no (unknown) (unknown) quetiapine 300 mg (units (unknown) date) tablet unknown) (unknown) (no (unknown) (unknown) second hand (units (un known) date) exposure: No unknown) (growing up as a child - not currently) (unknown) (no (unknown) (unknown) she is recently (units (unknown) date) relapsed due to a unknown) divorce with her .? 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 She has (units (unknown) date) been sober for a unknown) total of 18 months previously.'? (unknown) (no (unknown) (unknown) thiamine (units (unkno wn) date) mononitrate (vit unknown) B1) 100 mg Tablet (unknown) (no (unknown) (unknown) to the [facility] (units (unknown) date) emergency unknown) department on 06/18/2022 and a few days prior to that (unknown) (no (unknown) (unknown) was negative. (units ( unknown) date) unknown) (unknown) (no (unknown) (unknown) weighs 49.8 kg (units (unknown) date) with a BMI of unknown) 20.1.? WBC is 3.3 hemoglobin and hematocrit are (unknown) (no (unknown) (unknown) with a blood (units (u nknown) date) alcohol in 300s, unknown) she was last here in the emergency department in Result panel [id number] (unknown) (no (unknown) (unknown) (no value) (units (unk nown) date) unknown) (unknown) (no (unknown) (unknown) (past 8 hours): (units (unknown) date) unknown) (unknown) (no (unknown) (unknown) [id number] (units (unkn own) date) unknown) (unknown) (no (unknown) (unknown) 07/12/22 16:28 (units (unknown) date) unknown) (unknown) (no (unknown) (unknown) 07/13/22 07/14/22 (units (unknown) date) 07/14/22 unknown) (unknown) (no (unknown) (unknown) 07/13/22 06:12 (units (unknown) date) unknown) (unknown) (no (unknown) (unknown) 07/13/22 06:41 (units (unknown) date) unknown) (unknown) (no (unknown) (unknown) 07/13/22 11:35 (units (unknown) date) unknown) (unknown) (no (unknown) (unknown) 07/14/22 08:20 (units (unknown) date) unknown) (unknown) (no (unknown) (unknown) 07/14/22 1707 (units ( unknown) date) unknown) (unknown) (no (unknown) (unknown) 07/14/22 (units (unkno wn) date) unknown) (unknown) (no (unknown) (unknown) 09:00 07/14/22 (units (unknown) date) unknown) (unknown) (no (unknown) (unknown) 09:12 (units (unkno wn) date) unknown) (unknown) (no (unknown) (unknown) 1 tab PO DAILY (units (unknown) date) Qty: 30 0RF unknown) (unknown) (no (unknown) (unknown) 10 mg PO DAILY (units (unknown) date) unknown) (unknown) (no (unknown) (unknown) 100 mg PO DAILY (units (unknown) date) Qty: 30 0RF unknown) (unknown) (no (unknown) (unknown) 10:00 07/14/22 (units (unknown) date) unknown) (unknown) (no (unknown) (unknown) 10:04 (units (unkno wn) date) unknown) (unknown) (no (unknown) (unknown) 15:28 08:20 08:20 (units (unknown) date) unknown) (unknown) (no (unknown) (unknown) 20 and she was (units (unknown) date) deemed to medically unknown) unstable for transfer to rehab, ED requested (unknown) (no (unknown) (unknown) 300 mg PO DAILY (units (unknown) date) unknown) (unknown) (no (unknown) (unknown) 40 mg PO 0700 Qty: (units (unknown) date) 30 0RF unknown) (unknown) (no (unknown) (unknown) 50 mg PO DAILY (units (unknown) date) unknown) (unknown) (no (unknown) (unknown) ALT 17 (units (unkno wn) date) unknown) (unknown) (no (unknown) (unknown) AST 45 H (units (unkno wn) date) unknown) (unknown) (no (unknown) (unknown) Abd: soft, (units (unk nown) date) non-tender, unknown) normoactive BTs (unknown) (no (unknown) (unknown) Acute alcohol (units ( unknown) date) intoxication and unknown) withdrawal (unknown) (no (unknown) (unknown) Age/Sex: 31 / F (units (unknown) date) unknown) (unknown) (no (unknown) (unknown) Albumin 3.5 (units (un known) date) unknown) (unknown) (no (unknown) (unknown) Albumin/Globulin (units (unknown) date) Ratio 1.3 unknown) (unknown) (no (unknown) (unknown) Alcohol withdrawal (units (unknown) date) delirium, acute, unknown) hyperactive (unknown) (no (unknown) (unknown) Alcoholism (units (unk nown) date) unknown) (unknown) (no (unknown) (unknown) Alkaline (units (unkno wn) date) Phosphatase 68 unknown) (unknown) (no (unknown) (unknown) Anemia (-2018) (units (unknown) date) unknown) (unknown) (no (unknown) (unknown) BUN 5 L (units (unkno wn) date) unknown) (unknown) (no (unknown) (unknown) BUN/Creatinine (units (unknown) date) Ratio 7.9 unknown) (unknown) (no (unknown) (unknown) Vanesa (units (unkno wn) date) MD Rafael unknown) (unknown) (no (unknown) (unknown) Baso # (Auto) 0 (units (unknown) date) unknown) (unknown) (no (unknown) (unknown) Baso % (Auto) 0.8 (units (unknown) date) unknown) (unknown) (no (unknown) (unknown) Blood Pressure (units (unknown) date) 106/74 unknown) (unknown) (no (unknown) (unknown) Blood Pressure (units (unknown) date) 112/63 unknown) (unknown) (no (unknown) (unknown) CV: heart sounds (units (unknown) date) normal, no murmur unknown) or rubs (unknown) (no (unknown) (unknown) Calcium 8.5 (units (un known) date) unknown) (unknown) (no (unknown) (unknown) Carbon Dioxide 27 (units (unknown) date) unknown) (unknown) (no (unknown) (unknown) Chief complaint: (units (unknown) date) Acute alcohol unknown) withdrawal (unknown) (no (unknown) (unknown) Chloride 101 (units (u nknown) date) unknown) (unknown) (no (unknown) (unknown) Cognitive/behavior (units (unknown) date) al status at unknown) discharge: at baseline, oriented (unknown) (no (unknown) (unknown) Comment: (units (unkno wn) date) unknown) (unknown) (no (unknown) (unknown) Consult to (units (unk nown) date) Dietitian, Adult unknown) Routine (unknown) (no (unknown) (unknown) Consult to WINDOWS MIGRATION TECHNICIAN - (units (unknown) date) 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 unknown) Stat (unknown) (no (unknown) (unknown) Consult to Social (units (unknown) date) Services Routine unknown) (unknown) (no (unknown) (unknown) Consult to (units (unk nown) date) Tele-baseball scout unknown) Routine (unknown) (no (unknown) (unknown) Consulting (units (unk nown) date) Provider: Intercept unknown) Tele-intensivists (unknown) (no (unknown) (unknown) Consults: (units (unkn own) date) unknown) (unknown) (no (unknown) (unknown) Continued (units (unkn own) date) unknown) (unknown) (no (unknown) (unknown) Creatinine 0.63 (units (unknown) date) unknown) (unknown) (no (unknown) (unknown) : 1990 (units (unknown) date) Acct:[id number] unknown) (unknown) (no (unknown) (unknown) Date Patient Seen: (units (unknown) date) 07/14/22 unknown) (unknown) (no (unknown) (unknown) Date of Service: (units (unknown) date) 07/13/22 unknown) (unknown) (no (unknown) (unknown) Date of admission: (units (unknown) date) unknown) (unknown) (no (unknown) (unknown) Deep Vein (units (unkn own) date) Thrombosis/Pulmonar unknown) y Embolism Present on Admission: Yes (unknown) (no (unknown) (unknown) Discharge Data (units (unknown) date) unknown) (unknown) (no (unknown) (unknown) Discharge Date: (units (unknown) date) 07/14/22 unknown) (unknown) (no (unknown) (unknown) Discharge (units (unkn own) date) Diagnosis: unknown) (unknown) (no (unknown) (unknown) Discharge Plan (units (unknown) date) unknown) (unknown) (no (unknown) (unknown) Discharge (units (unkn own) date) Providers unknown) (unknown) (no (unknown) (unknown) Discharge Summary (units (unknown) date) unknown) (unknown) (no (unknown) (unknown) Discharge orders + (units (unknown) date) Medications unknown) (unknown) (no (unknown) (unknown) Discharge (units (unkn own) date) provider: unknown) (unknown) (no (unknown) (unknown) Eos # (Auto) 100 (units (unknown) date) unknown) (unknown) (no (unknown) (unknown) Eos % (Auto) 2.4 (units (unknown) date) unknown) (unknown) (no (unknown) (unknown) Estimated GFR > 60 (units (unknown) date) unknown) (unknown) (no (unknown) (unknown) Exam Narrative: (units (unknown) date) unknown) (unknown) (no (unknown) (unknown) Exam (units (unkno wn) date) unknown) (unknown) (no (unknown) (unknown) Extremities: moves (units (unknown) date) all 4 extremities unknown) (unknown) (no (unknown) (unknown) Family History (units (unknown) date) (Reviewed 07/13/22 unknown) @ 06:49 by LYUDMILA Borden) (unknown) (no (unknown) (unknown) Family/Other (units (u nknown) date) Alcoholism unknown) (unknown) (no (unknown) (unknown) Family/Other (units (u nknown) date) Diabetes mellitus unknown) (unknown) (no (unknown) (unknown) Father Alcoholism (units (unknown) date) unknown) (unknown) (no (unknown) (unknown) Tonia Schneider MD (units (unknown) date) [Primary Care unknown) Provider] (unknown) (no (unknown) (unknown) Follow (units (unkno wn) date) up/Referrals: unknown) (unknown) (no (unknown) (unknown) Functional status (units (unknown) date) at discharge: unknown) independent ambulation (unknown) (no (unknown) (unknown) Gen: Arousable, (units (unknown) date) female, NAD unknown) (unknown) (no (unknown) (unknown) Globulin 2.7 (units (u nknown) date) unknown) (unknown) (no (unknown) (unknown) Glucose 95 (units (unk nown) date) unknown) (unknown) (no (unknown) (unknown) Grandfather [...] extraction () unknown) (unknown) (no (unknown) (unknown) HEENT: (units (unkno wn) date) normocephalic, unknown) atraumatic, conjunctiva clear, pupils reactive to light, (unknown) (no (unknown) (unknown) Has provider been (units (unknown) date) notified: Yes unknown) (unknown) (no (unknown) (unknown) Hct 30.0 L (units (unk nown) date) unknown) (unknown) (no (unknown) (unknown) Hgb 10.2 L (units (unk nown) date) unknown) (unknown) (no (unknown) (unknown) History of Present (units (unknown) date) Illness unknown) (unknown) (no (unknown) (unknown) Hospital Course (units (unknown) date) unknown) (unknown) (no (unknown) (unknown) Hospital Course: (units (unknown) date) unknown) (unknown) (no (unknown) (unknown) Insomnia (units (unkno wn) date) unknown) (unknown) (no (unknown) (unknown) [facility] (units (unknown) date) [address] unknown) [place] [address] (unknown) (no (unknown) (unknown) May of 2022 (units (unknown) date) with similar unknown) symptoms.? She came in complaining of needing help, (unknown) (no (unknown) (unknown) Laboratory Results (units (unknown) date) - last 24 hr unknown) (unknown) (no (unknown) (unknown) Labs (units (unkno wn) date) unknown) (unknown) (no (unknown) (unknown) Labs: (units (unkno wn) date) unknown) (unknown) (no (unknown) (unknown) Lymph # (Auto) (units (unknown) date) 1100 unknown) (unknown) (no (unknown) (unknown) Lymph % (Auto) (units (unknown) date) 30.8 unknown) (unknown) (no (unknown) (unknown) MCH 26.5 (units (unkno wn) date) unknown) (unknown) (no (unknown) (unknown) MCHC 34.1 (units (unkn own) date) unknown) (unknown) (no (unknown) (unknown) MCV 77.8 L (units (unk nown) date) unknown) (unknown) (no (unknown) (unknown) Magnesium 1.9 (units ( unknown) date) unknown) (unknown) (no (unknown) (unknown) Medical History (units (unknown) date) (Updated 07/13/22 @ unknown) 11:47 by Gerardo Mccormick MD) (unknown) (no (unknown) (unknown) Menometrorrhagia (units (unknown) date) unknown) (unknown) (no (unknown) (unknown) Yates # (Auto) 200 (units (unknown) date) unknown) (unknown) (no (unknown) (unknown) Yates % (Auto) 5.3 (units (unknown) date) unknown) (unknown) (no (unknown) (unknown) Mother Diabetes (units (unknown) date) mellitus unknown) (unknown) (no (unknown) (unknown) Tonia Schneider MD (units (unknown) date) unknown) (unknown) (no (unknown) (unknown) Narrative (units (unkn own) date) unknown) (unknown) (no (unknown) (unknown) Narrative: (units (unk nown) date) unknown) (unknown) (no (unknown) (unknown) Nasal Screen MRSA (units (unknown) date) (PCR) Not detected unknown) (unknown) (no (unknown) (unknown) Neck: supple, full (units (unknown) date) ROM, no JVD, unknown) trachea is midline (unknown) (no (unknown) (unknown) Neuro: oriented, (units (unknown) date) no localizing signs unknown) (unknown) (no (unknown) (unknown) Neut # (Auto) 2100 (units (unknown) date) unknown) (unknown) (no (unknown) (unknown) Neut % (Auto) 60.7 (units (unknown) date) unknown) (unknown) (no (unknown) (unknown) New (units (unkno wn) date) unknown) (unknown) (no (unknown) (unknown) Obesity (units (unkno wn) date) unknown) (unknown) (no (unknown) (unknown) Objective (units (unkn own) date) unknown) (unknown) (no (unknown) (unknown) Overall status at (units (unknown) date) discharge: patient unknown) is back to baseline (unknown) (no (unknown) (unknown) Overweight (units (unk nown) date) unknown) (unknown) (no (unknown) (unknown) Oxygen Delivery (units (unknown) date) Method Room Air unknown) (unknown) (no (unknown) (unknown) PFSH (units (unkno wn) date) unknown) (unknown) (no (unknown) (unknown) Patient (units (unkno wn) date) Disposition: Home unknown) (unknown) (no (unknown) (unknown) Patient provided a (units (unknown) date) history for 'I went unknown) on a castañeda' for 12 days. Per the ED (unknown) (no (unknown) (unknown) Patient: (units (unkno wn) date) Sarah Connors R unknown) MR#: M (unknown) (no (unknown) (unknown) Plt Count 116 L (units (unknown) date) unknown) (unknown) (no (unknown) (unknown) Potassium 4.2 (units ( unknown) date) unknown) (unknown) (no (unknown) (unknown) Prescriptions: (units (unknown) date) unknown) (unknown) (no (unknown) (unknown) Primary Care (units (u nknown) date) Provider: unknown) Tonia Schneider (unknown) (no (unknown) (unknown) Primary care (units (u nknown) date) physician: unknown) (unknown) (no (unknown) (unknown) Provider (units (unkno wn) date) unknown) (unknown) (no (unknown) (unknown) Provider: (units (unkn own) date) Vanesa Hall unknown) (unknown) (no (unknown) (unknown) Psyche: appears (units (unknown) date) calm, unable to unknown) assess fully (unknown) (no (unknown) (unknown) Pulse Oximetry 98 (units (unknown) date) 97 unknown) (unknown) (no (unknown) (unknown) Pulse Oximetry 98 (units (unknown) date) 98 unknown) (unknown) (no (unknown) (unknown) Pulse Rate 62 63 (units (unknown) date) unknown) (unknown) (no (unknown) (unknown) Pulse Rate 66 67 (units (unknown) date) unknown) (unknown) (no (unknown) (unknown) Quality (units (unkno wn) date) unknown) (unknown) (no (unknown) (unknown) RBC 3.85 L (units (unk nown) date) unknown) (unknown) (no (unknown) (unknown) RDW 17.5 H (units (unk nown) date) unknown) (unknown) (no (unknown) (unknown) Reason For Exam: (units (unknown) date) EHOH unknown) (unknown) (no (unknown) (unknown) Reason for (units (unk nown) date) consultation: unknown) 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 (unknown) (no (unknown) (unknown) Resp: Lungs CTA, (units (unknown) date) non-labored unknown) breathing (unknown) (no (unknown) (unknown) S/P myringotomy (units (unknown) date) with insertion of unknown) tube (unknown) (no (unknown) (unknown) (spontaneous (units (unknown) date) vaginal delivery) unknown) (-09/05/18) (unknown) (no (unknown) (unknown) She remained in (units (unknown) date) the ED awaiting a unknown) bed and was receiving oral Ativan, but (unknown) (no (unknown) (unknown) Signed (units (unkno wn) date) By:<Electronically unknown) signed by Vanesa Hall MD> (unknown) (no (unknown) (unknown) Skin: no lesions (units (unknown) date) or rashes, dry and unknown) intact (unknown) (no (unknown) (unknown) Smoker (units (unkno wn) date) unknown) (unknown) (no (unknown) (unknown) Smoking Status: (units (unknown) date) Former smoker unknown) (unknown) (no (unknown) (unknown) Social History (units (unknown) date) (Reviewed 07/12/22 unknown) @ 17:50 by LYUDMILA Do) (unknown) (no (unknown) (unknown) Sodium 132 L (units (u nknown) date) unknown) (unknown) (no (unknown) (unknown) Stand Alone Forms: (units (unknown) date) Patient Portal/API, unknown) Stroke Signs + Symptoms (unknown) (no (unknown) (unknown) Status at (units (unkn own) date) Discharge unknown) (unknown) (no (unknown) (unknown) Summary (units (unkno wn) date) unknown) (unknown) (no (unknown) (unknown) Surgical History (units (unknown) date) (Reviewed 07/13/22 unknown) @ 06:49 by LYUDMILA Borden) (unknown) (no (unknown) (unknown) The day after (units ( unknown) date) admission the unknown) patient was titrated off Precedex well and eager to (unknown) (no (unknown) (unknown) This patient was (units (unknown) date) treated unknown) off?precedex infusion, she felt well and alert and (unknown) (no (unknown) (unknown) Total Bilirubin (units (unknown) date) 0.7 unknown) (unknown) (no (unknown) (unknown) Total Protein 6.2 (units (unknown) date) L unknown) (unknown) (no (unknown) (unknown) UTI, acute but (units (unknown) date) asymptomatic unknown) (unknown) (no (unknown) (unknown) VTE (units (unkno wn) date) unknown) (unknown) (no (unknown) (unknown) Visit (units (unkno wn) date) Report/Discharge unknown) Packet (unknown) (no (unknown) (unknown) Vital Signs (units (un known) date) unknown) (unknown) (no (unknown) (unknown) WBC 3.5 L (units (unkn own) date) unknown) (unknown) (no (unknown) (unknown) [Embedded Image (units (unknown) date) Not Available] unknown) (unknown) (no (unknown) (unknown) a BMI of 20.1.? (units (unknown) date) WBC is 3.3 unknown) hemoglobin and hematocrit are 11.5 and 35.3 (unknown) (no (unknown) (unknown) alcohol intake: (units (unknown) date) former unknown) (unknown) (no (unknown) (unknown) an ICU bed. She was (units (unknown) date) transferred to the unknown) ICU for Precedex infusion. She also had a (unknown) (no (unknown) (unknown) appears to have (units (unknown) date) limited history unknown) currently due to intoxication.? She stated that (unknown) (no (unknown) (unknown) bacteria alcohol (units (unknown) date) level was 338 and unknown) COVID-19 PCR done on July 12 was negative. (unknown) (no (unknown) (unknown) cephalexin for (units (unknown) date) this and was unknown) transitioned to IV Cipro 400 mg IV BID for (unknown) (no (unknown) (unknown) chucking from it.? (units (unknown) date) She stated that she unknown) drank 750 mL at a time.? This 3 weeks ago (unknown) (no (unknown) (unknown) completion of (units ( unknown) date) treatment.. She was unknown) afebrile, blood pressure 93/54 heart rate 119 (unknown) (no (unknown) (unknown) concern for (units (un known) date) urinary tract unknown) infection and had been given one dose of oral (unknown) (no (unknown) (unknown) current (units (unkno wn) date) occupational unknown) exposures/hazards: Yes (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 with Pandemic ) (unknown) (no (unknown) (unknown) daily since then.? (units (unknown) date) She wants rehab.? unknown) She has been [facility] in (unknown) (no (unknown) (unknown) developed (units (unkno wn) date) increasing unknown) agitation and then DTs. Her CIWA score went from 12 to over (unknown) (no (unknown) (unknown) discharge. (units (unk nown) date) unknown) (unknown) (no (unknown) (unknown) eager to go home. (units (unknown) date) You confirm that unknown) she is connected the with a alcohol depend (unknown) (no (unknown) (unknown) education level: (units (unknown) date) college unknown) (unknown) (no (unknown) (unknown) ence support (units (u nknown) date) group. She will unknown) continue to avail herself of this following (unknown) (no (unknown) (unknown) renee/zoroastrianism: (units (unknown) date) Buddhist unknown) (unknown) (no (unknown) (unknown) fluoxetine 10 mg (units (unknown) date) capsule unknown) (unknown) (no (unknown) (unknown) frequent visitor (units (unknown) date) for alcohol related unknown) complaints through 2019, and she presented (unknown) (no (unknown) (unknown) go home. Patient (units (unknown) date) was discharged in unknown) stable condition. (unknown) (no (unknown) (unknown) household members: (units (unknown) date) children unknown) (unknown) (no (unknown) (unknown) hydroxyzine HCl 50 (units (unknown) date) mg tablet unknown) (unknown) (no (unknown) (unknown) marital status: (units (unknown) date) unknown) (unknown) (no (unknown) (unknown) multivitamin with (units (unknown) date) folic acid unknown) [Tab-A-Kael] 400 mcg Tablet (unknown) (no (unknown) (unknown) notes, Sarah (units (unknown) date) 'is a 31-year-old unknown) female with history of alcohol abuse and (unknown) (no (unknown) (unknown) number of (units (unkn own) date) children: 1 unknown) (unknown) (no (unknown) (unknown) occupational (units (u nknown) date) status: employed unknown) (unknown) (no (unknown) (unknown) pantoprazole 40 mg (units (unknown) date) Tablet,Delayed unknown) Release (Dr/Ec) (unknown) (no (unknown) (unknown) presentation, and (units (unknown) date) stated that she unknown) took the bottle upside down and started (unknown) (no (unknown) (unknown) prior to (units (unkno wn) date) presentation was unknown) the beginning of the relapse and she was drinking (unknown) (no (unknown) (unknown) quetiapine 300 mg (units (unknown) date) tablet unknown) (unknown) (no (unknown) (unknown) respectively (units (u nknown) date) glucose is 111 unknown) calcium 8.0 AST 67 urinalysis indicated many (unknown) (no (unknown) (unknown) respiratory rate 18 (units (unknown) date) oxygen saturation unknown) of 97% on room air she weighs 49.8 kg with (unknown) (no (unknown) (unknown) sclera (units (unkno wn) date) non-icteric, oral unknown) mucosa pink and moist (unknown) (no (unknown) (unknown) second hand (units (un known) date) exposure: No unknown) (growing up as a child - not currently) (unknown) (no (unknown) (unknown) she is recently (units (unknown) date) relapsed due to a unknown) divorce with her .? 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 She has (units (unknown) date) been sober for a unknown) total of 18 months previously.'? (unknown) (no (unknown) (unknown) thiamine (units (unkno wn) date) mononitrate (vit unknown) B1) 100 mg Tablet (unknown) (no (unknown) (unknown) to the [facility] (units (unknown) date) emergency unknown) department on 06/18/2022 and a few days prior to that (unknown) (no (unknown) (unknown) with a blood (units (u nknown) date) alcohol in 300s, unknown) she was last here in the emergency department in Result panel 2390 (unknown) (no date) (unknown) (unknown) 0 /ul (unkn own) (unknown) (no date) (unknown) (unknown) 1.0 % (unkn own) (unknown) (no date) (unknown) (unknown) 10.6 g/dl (unkn own) (unknown) (no date) (unknown) (unknown) 100 /ul (unkn own) (unknown) (no date) (unknown) (unknown) 1200 /ul (unkn own) (unknown) (no date) (unknown) (unknown) 19.5 % (unkn own) (unknown) (no date) (unknown) (unknown) 229 x10 3/ul (unkn own) (unknown) (no date) (unknown) (unknown) 26.4 pg (unkn own) (unknown) (no date) (unknown) (unknown) 2600 /ul (unkn own) (unknown) (no date) (unknown) (unknown) 27.8 % (unkn own) (unknown) (no date) (unknown) (unknown) 3.3 % (unkn own) (unknown) (no date) (unknown) (unknown) 300 /ul (unkn own) (unknown) (no date) (unknown) (unknown) 32.3 % (unkn own) (unknown) (no date) (unknown) (unknown) 32.8 % (unkn own) (unknown) (no date) (unknown) (unknown) 4.02 x10 6/ul (unkn own) (unknown) (no date) (unknown) (unknown) 4.4 x10 3/ul (unkn own) (unknown) (no date) (unknown) (unknown) 60.0 % (unkn own) (unknown) (no date) (unknown) (unknown) 7.9 % (unkn own) (unknown) (no date) (unknown) (unknown) 80.4 fl (unkn own) Result panel 2391 (unknown) (no (unknown) (unknown) (no value) (units (unk nown) date) unknown) (unknown) (no (unknown) (unknown) [id number] (units (unkn own) date) unknown) (unknown) (no (unknown) (unknown) 07/31/22 12:36 (units (unknown) date) unknown) (unknown) (no (unknown) (unknown) 07/31/22 12:40 (units (unknown) date) unknown) (unknown) (no (unknown) (unknown) 07/31/22 (units (unkno wn) date) Range/Units unknown) (unknown) (no (unknown) (unknown) 07/31/22 (units (unkno wn) date) unknown) (unknown) (no (unknown) (unknown) 1 tab PO DAILY (units (unknown) date) Qty: 30 0RF unknown) (unknown) (no (unknown) (unknown) 10 mg PO DAILY (units (unknown) date) unknown) (unknown) (no (unknown) (unknown) 100 mg PO DAILY (units (unknown) date) Qty: 30 0RF unknown) (unknown) (no (unknown) (unknown) 12:30 (units (unkno wn) date) unknown) (unknown) (no (unknown) (unknown) 12:40 (units (unkno wn) date) unknown) (unknown) (no (unknown) (unknown) 300 mg PO DAILY (units (unknown) date) unknown) (unknown) (no (unknown) (unknown) 40 mg PO 0700 Qty: (units (unknown) date) 30 0RF unknown) (unknown) (no (unknown) (unknown) 50 mg PO DAILY (units (unknown) date) unknown) (unknown) (no (unknown) (unknown) Age/Sex: 31 / F (units (unknown) date) unknown) (unknown) (no (unknown) (unknown) Alcohol withdrawal (units (unknown) date) delirium, acute, unknown) hyperactive (unknown) (no (unknown) (unknown) Alcoholism (units (unk nown) date) unknown) (unknown) (no (unknown) (unknown) Allergies (units (unkn own) date) unknown) (unknown) (no (unknown) (unknown) Allergy/AdvReac (units (unknown) date) Type Severity unknown) Reaction Status Date / Time (unknown) (no (unknown) (unknown) Anemia (-2018) (units (unknown) date) unknown) (unknown) (no (unknown) (unknown) Baso # (Auto) 0 (units (unknown) date) (0-100) /uL unknown) (unknown) (no (unknown) (unknown) Baso % (Auto) 1.0 (units (unknown) date) (0-2) % unknown) (unknown) (no (unknown) (unknown) Blood Pressure (units (unknown) date) 137/84 07/31/22 unknown) 12:30 (unknown) (no (unknown) (unknown) Blood Pressure (units (unknown) date) 137/84 unknown) (unknown) (no (unknown) (unknown) Chief complaint: (units (unknown) date) Toxicology Problem unknown) (unknown) (no (unknown) (unknown) Complete Blood (units (unknown) date) Count AUTO DIFF unknown) Stat (unknown) (no (unknown) (unknown) Comprehensive (units ( unknown) date) Metabolic Panel unknown) Stat (unknown) (no (unknown) (unknown) Course (units (unkno wn) date) unknown) (unknown) (no (unknown) (unknown) : 1990 (units (unknown) date) Acct:[id number] unknown) (unknown) (no (unknown) (unknown) Date of Service: (units (unknown) date) 07/31/22 unknown) (unknown) (no (unknown) (unknown) Departure (units (unkn own) date) unknown) (unknown) (no (unknown) (unknown) Discharge Plan (units (unknown) date) unknown) (unknown) (no (unknown) (unknown) Discontinued (units (u nknown) date) Medications unknown) (unknown) (no (unknown) (unknown) Documented By: KB (units (unknown) date) unknown) (unknown) (no (unknown) (unknown) ED Orders (units (unkn own) date) unknown) (unknown) (no (unknown) (unknown) ER Physician: (units ( unknown) date) Will Benitez D.O. unknown) (unknown) (no (unknown) (unknown) Emergency Report (units (unknown) date) unknown) (unknown) (no (unknown) (unknown) Eos # (Auto) 100 (units (unknown) date) (0-450) /uL unknown) (unknown) (no (unknown) (unknown) Eos % (Auto) 3.3 (units (unknown) date) (2-4) % unknown) (unknown) (no (unknown) (unknown) Ethanol (ETOH) (units (unknown) date) Stat unknown) (unknown) (no (unknown) (unknown) Exam (units (unkno wn) date) unknown) (unknown) (no (unknown) (unknown) Family History (units (unknown) date) (Reviewed 07/13/22 unknown) @ 06:49 by Aide Haney, RECREATION PROGRAMMER) (unknown) (no (unknown) (unknown) Family/Other (units (u [...] unknown) (unknown) (no (unknown) (unknown) HPI - General (units ( unknown) date) Adult unknown) (unknown) (no (unknown) (unknown) Hct 32.3 L (36-46) (units (unknown) date) % unknown) (unknown) (no (unknown) (unknown) Hgb 10.6 L (units (unk nown) date) (12.0-16.0) g/dL unknown) (unknown) (no (unknown) (unknown) Home Medications (units (unknown) date) unknown) (unknown) (no (unknown) (unknown) Initial Vital (units ( unknown) date) Signs unknown) (unknown) (no (unknown) (unknown) Initial Vital (units ( unknown) date) Signs: unknown) (unknown) (no (unknown) (unknown) Insomnia (units (unkno wn) date) unknown) (unknown) (no (unknown) (unknown) [facility] (units (unknown) date) [address] unknown) [place] [address] (unknown) (no (unknown) (unknown) Lab Data (units (unkno wn) date) unknown) (unknown) (no (unknown) (unknown) Lab Results (units (un known) date) unknown) (unknown) (no (unknown) (unknown) Labs: (units (unkno wn) date) unknown) (unknown) (no (unknown) (unknown) Last Admin: (units (un known) date) 07/31/22 12:59 unknown) Dose: 1 mg (unknown) (no (unknown) (unknown) Last Admin: (units (un known) date) 07/31/22 12:59 unknown) Dose: 260 mg (unknown) (no (unknown) (unknown) Last Admin: (units (un known) date) 07/31/22 12:59 unknown) Dose: 408 mls/hr (unknown) (no (unknown) (unknown) Last Admin: (units (un known) date) 07/31/22 13:00 unknown) Dose: 1 tab (unknown) (no (unknown) (unknown) Lipase Stat (units (un known) date) unknown) (unknown) (no (unknown) (unknown) Lorazepam (units (unkn own) date) (Lorazepam 2 Mg/Ml unknown) Inj) 1 mg IV NOW ONE (unknown) (no (unknown) (unknown) Lymph # (Auto) (units (unknown) date) 1200 (3042-2408) unknown) /uL (unknown) (no (unknown) (unknown) Lymph % (Auto) (units (unknown) date) 27.8 (25-40) % unknown) (unknown) (no (unknown) (unknown) MCH 26.4 (26-34) (units (unknown) date) PG unknown) (unknown) (no (unknown) (unknown) MCHC 32.8 (30-36) (units (unknown) date) % unknown) (unknown) (no (unknown) (unknown) MCV 80.4 (80-100) (units (unknown) date) fL unknown) (unknown) (no (unknown) (unknown) Medical Decision (units (unknown) date) Making unknown) (unknown) (no (unknown) (unknown) Medical History (units (unknown) date) (Updated 07/18/22 @ unknown) 18:46 by Juliet Paz [facility]) (unknown) (no (unknown) (unknown) Medication (units (unk nown) date) Instructions unknown) Recorded Confirmed (unknown) (no (unknown) (unknown) Medication (units (unk nown) date) Instructions unknown) Recorded (unknown) (no (unknown) (unknown) Menometrorrhagia (units (unknown) date) unknown) (unknown) (no (unknown) (unknown) Mode of arrival: (units (unknown) date) Ambulatory unknown) (unknown) (no (unknown) (unknown) Yates # (Auto) 300 (units (unknown) date) (0-900) /uL unknown) (unknown) (no (unknown) (unknown) Yates % (Auto) 7.9 (units (unknown) date) (3-14) % unknown) (unknown) (no (unknown) (unknown) Mother Diabetes (units (unknown) date) mellitus unknown) (unknown) (no (unknown) (unknown) Multivitamins (units ( unknown) date) (Multivitamin 1 unknown) Tablet) 1 tab PO DAILY SANDY (unknown) (no (unknown) (unknown) Neut # (Auto) 2600 (units (unknown) date) (7919-6277) /uL unknown) (unknown) (no (unknown) (unknown) Neut % (Auto) 60.0 (units (unknown) date) (50-75) % unknown) (unknown) (no (unknown) (unknown) No Action (units (unkn own) date) unknown) (unknown) (no (unknown) (unknown) Obesity (units (unkno wn) date) unknown) (unknown) (no (unknown) (unknown) Ordered: (units (unkno wn) date) unknown) (unknown) (no (unknown) (unknown) Orders (units (unkno wn) date) unknown) (unknown) (no (unknown) (unknown) Overweight (units (unk nown) date) unknown) (unknown) (no (unknown) (unknown) Oxygen Delivery (units (unknown) date) Method Room Air unknown) 07/31/22 12:30 (unknown) (no (unknown) (unknown) Oxygen Delivery (units (unknown) date) Method Room Air unknown) (unknown) (no (unknown) (unknown) Patient History (units (unknown) date) unknown) (unknown) (no (unknown) (unknown) Patient: (units (unkno wn) date) Sarah Connors R unknown) MR#: M (unknown) (no (unknown) (unknown) Phenobarbital (units ( unknown) date) (Phenobarbital 65 unknown) Mg/Ml Vial) 260 mg IV NOW ONE (unknown) (no (unknown) (unknown) Plt Count 229 (units ( unknown) date) (150-400) X103/uL unknown) (unknown) (no (unknown) (unknown) Test (units (unknown) date) Serum,Qual Stat unknown) (unknown) (no (unknown) (unknown) Prescriptions: (units (unknown) date) unknown) (unknown) (no (unknown) (unknown) Previous Rx's (units ( unknown) date) unknown) (unknown) (no (unknown) (unknown) Pulse Oximetry 100 (units (unknown) date) 07/31/22 12:30 unknown) (unknown) (no (unknown) (unknown) Pulse Oximetry 100 (units (unknown) date) unknown) (unknown) (no (unknown) (unknown) Pulse Rate 68 (units ( unknown) date) 07/31/22 12:30 unknown) (unknown) (no (unknown) (unknown) Pulse Rate 68 (units ( unknown) date) unknown) (unknown) (no (unknown) (unknown) RBC 4.02 (4.0-5.2) (units (unknown) date) X106/uL unknown) (unknown) (no (unknown) (unknown) RDW 19.5 H (units (unk nown) date) (11.6-14.8) % unknown) (unknown) (no (unknown) (unknown) Referrals: (units (unk nown) date) unknown) (unknown) (no (unknown) (unknown) Related Data (units (u nknown) date) unknown) (unknown) (no (unknown) (unknown) Respiratory Rate (units (unknown) date) 17 07/31/22 12:30 unknown) (unknown) (no (unknown) (unknown) Respiratory Rate (units (unknown) date) 17 unknown) (unknown) (no (unknown) (unknown) S/P myringotomy [...] (unknown) Social History (units (unknown) date) (Reviewed 07/12/22 unknown) @ 17:50 by LYUDMILA Do) (unknown) (no (unknown) (unknown) Source: patient (units (unknown) date) unknown) (unknown) (no (unknown) (unknown) Stated complaint: (units (unknown) date) SOB, tremors unknown) (unknown) (no (unknown) (unknown) Stop: 07/31/22 (units (unknown) date) 12:36 unknown) (unknown) (no (unknown) (unknown) Substance Use (units ( unknown) date) Type: does not use unknown) (unknown) (no (unknown) (unknown) Surgical History (units (unknown) date) (Reviewed 07/13/22 unknown) @ 06:49 by LYUDMILA Borden) (unknown) (no (unknown) (unknown) Temperature 97.7 F (units (unknown) date) 07/31/22 12:30 unknown) (unknown) (no (unknown) (unknown) Temperature 97.7 F (units (unknown) date) unknown) (unknown) (no (unknown) (unknown) Thiamine HCl 200 (units (unknown) date) mg/ Sodium unknown) (Chloride) 102 mls @ 408 mls/hr IV DAILY SANDY (unknown) (no (unknown) (unknown) Time Seen by (units (u nknown) date) Provider: 07/31/22 unknown) 12:35 (unknown) (no (unknown) (unknown) Urinalysis and (units (unknown) date) Microscopic Stat unknown) (unknown) (no (unknown) (unknown) Urine Drug Screen, (units (unknown) date) Rapid Stat unknown) (unknown) (no (unknown) (unknown) Vital Signs - 8 hr (units (unknown) date) unknown) (unknown) (no (unknown) (unknown) Vital Signs (units (un known) date) unknown) (unknown) (no (unknown) (unknown) Vital signs: (units (u nknown) date) unknown) (unknown) (no (unknown) (unknown) WBC 4.4 L (units (unkn own) date) (4.5-11.0) X103/uL unknown) (unknown) (no (unknown) (unknown) [Embedded Image (units (unknown) date) Not Available] unknown) (unknown) (no (unknown) (unknown) [METOCLOPRAMIDE] (units (unknown) date) unknown) (unknown) (no (unknown) (unknown) alcohol intake (units (unknown) date) frequency: 3 or unknown) more drinks per day (unknown) (no (unknown) (unknown) alcohol intake: (units (unknown) date) former unknown) (unknown) (no (unknown) (unknown) current (units (unkno wn) date) occupational unknown) exposures/hazards: Yes (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 with Pandemic ) (unknown) (no (unknown) (unknown) education level: (units (unknown) date) college unknown) (unknown) (no (unknown) (unknown) renee/zoroastrianism: (units (unknown) date) Buddhist unknown) (unknown) (no (unknown) (unknown) fluoxetine 10 mg (units (unknown) date) capsule 10 mg PO unknown) DAILY 07/13/22 07/13/22 (unknown) (no (unknown) (unknown) fluoxetine 10 mg (units (unknown) date) capsule unknown) (unknown) (no (unknown) (unknown) household members: (units (unknown) date) children unknown) (unknown) (no (unknown) (unknown) hydrocodone (units (un known) date) [HYDROCODONE] unknown) AdvReac Unknown VOMITING Verified 07/12/22 16:18 (unknown) (no (unknown) (unknown) hydroxyzine HCl 50 (units (unknown) date) mg tablet 50 mg PO unknown) DAILY 07/13/22 07/13/22 (unknown) (no (unknown) (unknown) hydroxyzine HCl 50 (units (unknown) date) mg tablet unknown) (unknown) (no (unknown) (unknown) marital status: (units (unknown) date) unknown) (unknown) (no (unknown) (unknown) mcg tablet (units (unk nown) date) (Tab-A-Kael) unknown) (unknown) (no (unknown) (unknown) metoclopramide (units (unknown) date) Allergy Mild unknown) RASH/HIVES Verified 07/12/22 16:18 (unknown) (no (unknown) (unknown) mg tablet (units (unkn own) date) unknown) (unknown) (no (unknown) (unknown) multivitamin with (units (unknown) date) folic acid 400 1 unknown) tab PO DAILY #30 tabs 07/14/22 (unknown) (no (unknown) (unknown) multivitamin with (units (unknown) date) folic acid unknown) [Tab-A-Kael] 400 mcg Tablet (unknown) (no (unknown) (unknown) number of (units (unkn own) date) children: 1 unknown) (unknown) (no (unknown) (unknown) occupational (units (u nknown) date) status: employed unknown) (unknown) (no (unknown) (unknown) pantoprazole 40 mg (units (unknown) date) Tablet,Delayed unknown) Release (Dr/Ec) (unknown) (no (unknown) (unknown) pantoprazole 40 mg (units (unknown) date) tablet,delayed 40 unknown) mg PO 0700 #30 tabs 07/14/22 (unknown) (no (unknown) (unknown) quetiapine 300 mg (units (unknown) date) tablet 300 mg PO unknown) DAILY 07/13/22 07/13/22 (unknown) (no (unknown) (unknown) quetiapine 300 mg (units (unknown) date) tablet unknown) (unknown) (no (unknown) (unknown) release (units (unkno wn) date) unknown) (unknown) (no (unknown) (unknown) second hand (units (un known) date) exposure: No unknown) (growing up as a child - not currently) (unknown) (no (unknown) (unknown) special renee (units ( unknown) date) needs: No unknown) (unknown) (no (unknown) (unknown) substance use (units ( unknown) date) type: does not use unknown) (unknown) (no (unknown) (unknown) thiamine (units (unkno wn) date) mononitrate (vit unknown) B1) 100 100 mg PO DAILY #30 tabs 07/14/22 (unknown) (no (unknown) (unknown) thiamine (units (unkno wn) date) mononitrate (vit unknown) B1) 100 mg Tablet Result panel 2392 (unknown) (no date) (unknown) (unknown) > 60 ml/min (unkn own) (unknown) (no date) (unknown) (unknown) > 60 ml/min (unkn own) (unknown) (no date) (unknown) (unknown) < 10 mg/dl (unkn own) (unknown) (no date) (unknown) (unknown) < 10 mg/dl (unkn own) (unknown) (no date) (unknown) (unknown) 0.69 mg/dl (unkn own) (unknown) (no date) (unknown) (unknown) 0.8 mg/dl (unkn own) (unknown) (no date) (unknown) (unknown) 1.6 (units unknown) (unknown) (unknown) (no date) (unknown) (unknown) 102 mg/dl (unkn own) (unknown) (no date) (unknown) (unknown) 102 mg/dl (unkn own) (unknown) (no date) (unknown) (unknown) 105 mmol/l (unkn own) (unknown) (no date) (unknown) (unknown) 12 mg/dl (unkn own) (unknown) (no date) (unknown) (unknown) 137 mmol/l (unkn own) (unknown) (no date) (unknown) (unknown) 17.4 (units unknown) (unknown) (unknown) (no date) (unknown) (unknown) 2.8 g/dl (unkn own) (unknown) (no date) (unknown) (unknown) 24 mmol/l (unkn own) (unknown) (no date) (unknown) (unknown) 25 iu/l (unkn own) (unknown) (no date) (unknown) (unknown) 3.8 mmol/l (unkn own) (unknown) (no date) (unknown) (unknown) 366 u/l (unkn own) (unknown) (no date) (unknown) (unknown) 4.4 g/dl (unkn own) (unknown) (no date) (unknown) (unknown) 7.2 g/dl (unkn own) (unknown) (no date) (unknown) (unknown) 76 u/l (unkn own) (unknown) (no date) (unknown) (unknown) 77 iu/l (unkn own) (unknown) (no date) (unknown) (unknown) 8.7 mg/dl (unkn own) Result panel 2393 (unknown) (no date) (unknown) (unknown) Negative (units (unkn own) unknown) Result panel 2394 (unknown) (no date) (unknown) (unknown) >=1.030 (units (unkn own) unknown) (unknown) (no date) (unknown) (unknown) 0.2 e.u./dl (unkn own) (unknown) (no date) (unknown) (unknown) 1 (units (unkn own) unknown) (unknown) (no date) (unknown) (unknown) 1 (units (unkn own) unknown) (unknown) (no date) (unknown) (unknown) 6.0 (units (unkn own) unknown) (unknown) (no date) (unknown) (unknown) NEGATIVE (units (unkn own) unknown) (unknown) (no date) (unknown) (unknown) NEGATIVE g/dl (unkn own) (unknown) (no date) (unknown) (unknown) SL CLOUDY (units (unk nown) unknown) (unknown) (no date) (unknown) (unknown) TRACE (units (unkn own) unknown) (unknown) (no date) (unknown) (unknown) YELLOW (units (unkn own) unknown) (unknown) (no date) (unknown) (unknown) YELLOW (units (unkn own) unknown) Result panel 2395 (unknown) (no date) (unknown) (unknown) Negative (units (unkn own) unknown) (unknown) (no date) (unknown) (unknown) Normal (units (unkn own) unknown) (unknown) (no date) (unknown) (unknown) Positive (units (unkn own) unknown) Result panel 2396 (unknown) (no date) (unknown) (unknown) Negative (units (unkn own) unknown) Result panel 2397 (unknown) (no date) (unknown) (unknown) >=1.030 (units (unkn own) unknown) (unknown) (no date) (unknown) (unknown) 0.2 e.u./dl (unkn own) (unknown) (no date) (unknown) (unknown) 1 (units (unkn own) unknown) (unknown) (no date) (unknown) (unknown) 1 (units (unkn own) unknown) (unknown) (no date) (unknown) (unknown) 5-10 /HPF (units (unk nown) unknown) (unknown) (no date) (unknown) (unknown) 6.0 (units (unkn own) unknown) (unknown) (no date) (unknown) (unknown) Cult Not (units (unkn own) Indicated unknown) (unknown) (no date) (unknown) (unknown) NEGATIVE (units (unkn own) unknown) (unknown) (no date) (unknown) (unknown) NEGATIVE g/dl (unkn own) (unknown) (no date) (unknown) (unknown) None Seen (units (unk nown) unknown) (unknown) (no date) (unknown) (unknown) None Seen (units (unk nown) unknown) (unknown) (no date) (unknown) (unknown) SL CLOUDY (units (unk nown) unknown) (unknown) (no date) (unknown) (unknown) TRACE (units (unkn own) unknown) (unknown) (no date) (unknown) (unknown) YELLOW (units (unkn own) unknown) (unknown) (no date) (unknown) (unknown) YELLOW (units (unkn own) unknown) Result panel 2398 (unknown) (no (unknown) (unknown) (no value) (units (unk nown) date) unknown) (unknown) (no (unknown) (unknown) [id number] (units (unkn own) date) unknown) (unknown) (no (unknown) (unknown) 07/31/22 07/31/22 (units (unknown) date) 07/31/22 unknown) Range/Units (unknown) (no (unknown) (unknown) 07/31/22 12:40 (units (unknown) date) unknown) (unknown) (no (unknown) (unknown) 07/31/22 13:41 (units (unknown) date) unknown) (unknown) (no (unknown) (unknown) 07/31/22 (units (unkno wn) date) Range/Units unknown) (unknown) (no (unknown) (unknown) 07/31/22 (units (unkno wn) date) unknown) (unknown) (no (unknown) (unknown) 1 tab PO DAILY (units (unknown) date) Qty: 30 0RF unknown) (unknown) (no (unknown) (unknown) 10 mg PO DAILY (units (unknown) date) unknown) (unknown) (no (unknown) (unknown) 100 mg PO DAILY (units (unknown) date) Qty: 30 0RF unknown) (unknown) (no (unknown) (unknown) 12:30 (units (unkno wn) date) unknown) (unknown) (no (unknown) (unknown) 12:40 12:40 12:40 (units (unknown) date) unknown) (unknown) (no (unknown) (unknown) 12:40 13:41 13:41 (units (unknown) date) unknown) (unknown) (no (unknown) (unknown) 13:41 (units (unkno wn) date) unknown) (unknown) (no (unknown) (unknown) 300 mg PO DAILY (units (unknown) date) unknown) (unknown) (no (unknown) (unknown) 40 mg PO 0700 Qty: (units (unknown) date) 30 0RF unknown) (unknown) (no (unknown) (unknown) 50 mg PO DAILY (units (unknown) date) unknown) (unknown) (no (unknown) (unknown) ALT (<35) IU/L (units (unknown) date) unknown) (unknown) (no (unknown) (unknown) ALT 25 (<35) IU/L (units (unknown) date) unknown) (unknown) (no (unknown) (unknown) AST (14-36) IU/L (units (unknown) date) unknown) (unknown) (no (unknown) (unknown) AST 77 H (14-36) (units (unknown) date) IU/L unknown) (unknown) (no (unknown) (unknown) Admin: 07/31/22 (units (unknown) date) 12:59 Dose: 408 unknown) mls/hr (unknown) (no (unknown) (unknown) Age/Sex: 31 / F (units (unknown) date) unknown) (unknown) (no (unknown) (unknown) Albumin (3.5-5.0) (units (unknown) date) g/dL unknown) (unknown) (no (unknown) (unknown) Albumin 4.4 (units (un known) date) (3.5-5.0) g/dL unknown) (unknown) (no (unknown) (unknown) Albumin/Globulin (units (unknown) date) Ratio (1.0-2.8) unknown) (unknown) (no (unknown) (unknown) Albumin/Globulin (units (unknown) date) Ratio 1.6 (1.0-2.8) unknown) (unknown) (no (unknown) (unknown) Alcohol withdrawal (units (unknown) date) delirium, acute, unknown) hyperactive (unknown) (no (unknown) (unknown) Alcoholism (units (unk nown) date) unknown) (unknown) (no (unknown) (unknown) Alkaline (units (unkno wn) date) Phosphatase unknown) (38-126) U/L (unknown) (no (unknown) (unknown) Alkaline (units (unkno wn) date) Phosphatase 76 unknown) (38-126) U/L (unknown) (no (unknown) (unknown) Allergies (units (unkn own) date) unknown) (unknown) (no (unknown) (unknown) Allergy/AdvReac (units (unknown) date) Type Severity unknown) Reaction Status Date / Time (unknown) (no (unknown) (unknown) Anemia (-2018) (units (unknown) date) unknown) (unknown) (no (unknown) (unknown) Auscultation: (units ( unknown) date) clear to unknown) auscultation bilaterally (unknown) (no (unknown) (unknown) BUN (7-17) mg/dL (units (unknown) date) unknown) (unknown) (no (unknown) (unknown) BUN 12 (7-17) (units ( unknown) date) mg/dL unknown) (unknown) (no (unknown) (unknown) BUN/Creatinine (units (unknown) date) Ratio (6-22) unknown) (unknown) (no (unknown) (unknown) BUN/Creatinine (units (unknown) date) Ratio 17.4 (6-22) unknown) (unknown) (no (unknown) (unknown) Baso # (Auto) (units ( unknown) date) (0-100) /uL unknown) (unknown) (no (unknown) (unknown) Baso # (Auto) 0 (units (unknown) date) (0-100) /uL unknown) (unknown) (no (unknown) (unknown) Baso % (Auto) (units ( unknown) date) (0-2) % unknown) (unknown) (no (unknown) (unknown) Baso % (Auto) 1.0 (units (unknown) date) (0-2) % unknown) (unknown) (no (unknown) (unknown) Bedside Urine (units ( unknown) date) Bilirubin + 1 unknown) (unknown) (no (unknown) (unknown) Bedside Urine (units ( unknown) date) Glucose Negative unknown) (unknown) (no (unknown) (unknown) Bedside Urine (units ( unknown) date) Ketone + 15 unknown) (unknown) (no (unknown) (unknown) Bedside Urine (units ( unknown) date) Leukocytes - unknown) Negative (unknown) (no (unknown) (unknown) Bedside Urine (units ( unknown) date) Nitrite - Negative unknown) (unknown) (no (unknown) (unknown) Bedside Urine (units ( unknown) date) Occult Blood - unknown) Negative (unknown) (no (unknown) (unknown) Bedside Urine (units ( unknown) date) Protein + 30 unknown) (unknown) (no (unknown) (unknown) Bedside Urine (units ( unknown) date) Urobilinogen - unknown) Negative (unknown) (no (unknown) (unknown) Bedside Urine pH (units (unknown) date) 6.0 unknown) (unknown) (no (unknown) (unknown) Blood Pressure (units (unknown) date) 137/84 07/31/22 unknown) 12:30 (unknown) (no (unknown) (unknown) Blood Pressure (units (unknown) date) 137 unknown) (unknown) (no (unknown) (unknown) Calcium (8.4-10.2) (units (unknown) date) mg/dL unknown) (unknown) (no (unknown) (unknown) Calcium 8.7 (units (un known) date) (8.4-10.2) mg/dL unknown) (unknown) (no (unknown) (unknown) Carbon Dioxide (units (unknown) date) (22-32) mmol/L unknown) (unknown) (no (unknown) (unknown) Carbon Dioxide 24 (units (unknown) date) (22-32) mmol/L unknown) (unknown) (no (unknown) (unknown) Cardio (units (unkno wn) date) unknown) (unknown) (no (unknown) (unknown) Chief complaint: (units (unknown) date) Toxicology Problem unknown) (unknown) (no (unknown) (unknown) Chloride (98-107) (units (unknown) date) mmol/L unknown) (unknown) (no (unknown) (unknown) Chloride 105 (units (u nknown) date) (98-107) mmol/L unknown) (unknown) (no (unknown) (unknown) Complete Blood (units (unknown) date) Count AUTO DIFF unknown) Stat (unknown) (no (unknown) (unknown) Comprehensive (units ( unknown) date) Metabolic Panel unknown) Stat (unknown) (no (unknown) (unknown) Const (units (unkno wn) date) unknown) (unknown) (no (unknown) (unknown) Course (units (unkno wn) date) unknown) (unknown) (no (unknown) (unknown) Creatinine (units (unk nown) date) (0.52-1.04) mg/dL unknown) (unknown) (no (unknown) (unknown) Creatinine 0.69 (units (unknown) date) (0.52-1.04) mg/dL unknown) (unknown) (no (unknown) (unknown) : 1990 (units (unknown) date) Acct:[id number] unknown) (unknown) (no (unknown) (unknown) Date of Service: (units (unknown) date) 07/31/22 unknown) (unknown) (no (unknown) (unknown) Departure (units (unkn own) date) unknown) (unknown) (no (unknown) (unknown) Discharge Plan (units (unknown) date) unknown) (unknown) (no (unknown) (unknown) Discontinued (units (u nknown) date) Medications unknown) (unknown) (no (unknown) (unknown) Documented By: KB (units (unknown) date) unknown) (unknown) (no (unknown) (unknown) ED Orders (units (unkn own) date) unknown) (unknown) (no (unknown) (unknown) ER Physician: (units ( unknown) date) Will Benitez D.O. unknown) (unknown) (no (unknown) (unknown) Effort + (units (unkno wn) date) Inspection: normal unknown) respiratory effort (unknown) (no (unknown) (unknown) Emergency Report (units (unknown) date) unknown) (unknown) (no (unknown) (unknown) Eos # (Auto) (units (u nknown) date) (0-450) /uL unknown) (unknown) (no (unknown) (unknown) Eos # (Auto) 100 (units (unknown) date) (0-450) /uL unknown) (unknown) (no (unknown) (unknown) Eos % (Auto) (2-4) (units (unknown) date) % unknown) (unknown) (no (unknown) (unknown) Eos % (Auto) 3.3 (units (unknown) date) (2-4) % unknown) (unknown) (no (unknown) (unknown) Esterase (units (unkno wn) date) unknown) (unknown) (no (unknown) (unknown) Estimated GFR > 60 (units (unknown) date) (>60) mL/min unknown) (unknown) (no (unknown) (unknown) Estimated GFR (units ( unknown) date) (>60) mL/min unknown) (unknown) (no (unknown) (unknown) Ethanol (ETOH) (units (unknown) date) Stat unknown) (unknown) (no (unknown) (unknown) Ethyl Alcohol < 10 (units (unknown) date) ( - 10) mg/dL unknown) (unknown) (no (unknown) (unknown) Ethyl Alcohol ( - (units (unknown) date) 10) mg/dL unknown) (unknown) (no (unknown) (unknown) Exam (units (unkno wn) date) unknown) (unknown) (no (unknown) (unknown) Extrem (units (unkno wn) date) unknown) (unknown) (no (unknown) (unknown) Family History (units (unknown) date) (Reviewed 07/13/22 unknown) @ 06:49 by LYUDMILA Borden) (unknown) (no (unknown) (unknown) Family/Other (units (u nknown) date) Alcoholism unknown) (unknown) (no (unknown) (unknown) Family/Other (units (u nknown) date) Diabetes mellitus unknown) (unknown) (no (unknown) (unknown) Father Alcoholism (units (unknown) date) unknown) (unknown) (no (unknown) (unknown) Tonia Schneider MD (units (unknown) date) [Primary Care unknown) Provider] (unknown) (no (unknown) (unknown) General (units (unkno wn) date) unknown) (unknown) (no (unknown) (unknown) General: (units (unkno wn) date) cooperative unknown) (unknown) (no (unknown) (unknown) General: no rashes (units (unknown) date) or lesions noted unknown) (unknown) (no (unknown) (unknown) General: normal to (units (unknown) date) inspection unknown) (unknown) (no (unknown) (unknown) Globulin (1.7-4.1) (units (unknown) date) g/dL unknown) (unknown) (no (unknown) (unknown) Globulin 2.8 (units (u nknown) date) (1.7-4.1) g/dL unknown) (unknown) (no (unknown) (unknown) Glucose (70-100) (units (unknown) date) mg/dL unknown) (unknown) (no (unknown) (unknown) Glucose 102 H (units ( unknown) date) (70-100) mg/dL [...] extraction () unknown) (unknown) (no (unknown) (unknown) HENMT (units (unkno wn) date) unknown) (unknown) (no (unknown) (unknown) HPI - General (units ( unknown) date) Adult unknown) (unknown) (no (unknown) (unknown) HPI narrative: (units (unknown) date) unknown) (unknown) (no (unknown) (unknown) Hct (36-46) % (units ( unknown) date) unknown) (unknown) (no (unknown) (unknown) Hct 32.3 L (36-46) (units (unknown) date) % unknown) (unknown) (no (unknown) (unknown) Head: normal to (units (unknown) date) inspection and unknown) normocephalic (unknown) (no (unknown) (unknown) Hgb (12.0-16.0) (units (unknown) date) g/dL unknown) (unknown) (no (unknown) (unknown) Hgb 10.6 L (units (unk nown) date) (12.0-16.0) g/dL unknown) (unknown) (no (unknown) (unknown) History of Present (units (unknown) date) Illness unknown) (unknown) (no (unknown) (unknown) Home Medications (units (unknown) date) unknown) (unknown) (no (unknown) (unknown) Ictotest Urine (units (unknown) date) Stat unknown) (unknown) (no (unknown) (unknown) Initial Vital (units ( unknown) date) Signs unknown) (unknown) (no (unknown) (unknown) Initial Vital (units ( unknown) date) Signs: unknown) (unknown) (no (unknown) (unknown) Insomnia (units (unkno wn) date) unknown) (unknown) (no (unknown) (unknown) Is anxious (units (unk nown) date) appearing unknown) (unknown) (no (unknown) (unknown) [facility] (units (unknown) date) [address] unknown) [place] [address] (unknown) (no (unknown) (unknown) Lab Data (units (unkno wn) date) unknown) (unknown) (no (unknown) (unknown) Lab Results (units (un known) date) unknown) (unknown) (no (unknown) (unknown) Labs: (units (unkno wn) date) unknown) (unknown) (no (unknown) (unknown) Last Admin: (units (un known) date) 07/31/22 12:59 unknown) Dose: 1 mg (unknown) (no (unknown) (unknown) Last Admin: (units (un known) date) 07/31/22 12:59 unknown) Dose: 260 mg (unknown) (no (unknown) (unknown) Last Admin: (units (un known) date) 07/31/22 13:00 unknown) Dose: 1 tab (unknown) (no (unknown) (unknown) Last Infusion: (units (unknown) date) 07/31/22 13:23 unknown) Dose: 0 mls/hr (unknown) (no (unknown) (unknown) Lipase (23-300) (units (unknown) date) U/L unknown) (unknown) (no (unknown) (unknown) Lipase 366 H (units (u nknown) date) (23-300) U/L unknown) (unknown) (no (unknown) (unknown) Lipase Stat (units (un known) date) unknown) (unknown) (no (unknown) (unknown) Lorazepam (units (unkn own) date) (Lorazepam 2 Mg/Ml unknown) Inj) 1 mg IV NOW ONE (unknown) (no (unknown) (unknown) Lymph # (Auto) (units (unknown) date) (4725-6949) /uL unknown) (unknown) (no (unknown) (unknown) Lymph # (Auto) (units (unknown) date) 1200 (3989-4467) unknown) /uL (unknown) (no (unknown) (unknown) Lymph % (Auto) (units (unknown) date) (25-40) % unknown) (unknown) (no (unknown) (unknown) Lymph % (Auto) (units (unknown) date) 27.8 (25-40) % unknown) (unknown) (no (unknown) (unknown) MCH (26-34) PG (units (unknown) date) unknown) (unknown) (no (unknown) (unknown) MCH 26.4 (26-34) (units (unknown) date) PG unknown) (unknown) (no (unknown) (unknown) MCHC (30-36) % (units (unknown) date) unknown) (unknown) (no (unknown) (unknown) MCHC 32.8 (30-36) (units (unknown) date) % unknown) (unknown) (no (unknown) (unknown) MCV (80-100) fL (units (unknown) date) unknown) (unknown) (no (unknown) (unknown) MCV 80.4 (80-100) (units (unknown) date) fL unknown) (unknown) (no (unknown) (unknown) Medical Decision (units (unknown) date) Making unknown) (unknown) (no (unknown) (unknown) Medical History (units (unknown) date) (Reviewed 07/31/22 unknown) @ 14:40 by Will Benitez DO) (unknown) (no (unknown) (unknown) Medication (units (unk nown) date) Instructions unknown) Recorded Confirmed (unknown) (no (unknown) (unknown) Medication (units (unk nown) date) Instructions unknown) Recorded (unknown) (no (unknown) (unknown) Menometrorrhagia (units (unknown) date) unknown) (unknown) (no (unknown) (unknown) Mode of arrival: (units (unknown) date) Ambulatory unknown) (unknown) (no (unknown) (unknown) Yates # (Auto) (units ( unknown) date) (0-900) /uL unknown) (unknown) (no (unknown) (unknown) Yates # (Auto) 300 (units (unknown) date) (0-900) /uL unknown) (unknown) (no (unknown) (unknown) Yates % (Auto) (units ( unknown) date) (3-14) % unknown) (unknown) (no (unknown) (unknown) Yates % (Auto) 7.9 (units (unknown) date) (3-14) % unknown) (unknown) (no (unknown) (unknown) Mother Diabetes (units (unknown) date) mellitus unknown) (unknown) (no (unknown) (unknown) Multivitamins (units ( unknown) date) (Multivitamin 1 unknown) Tablet) 1 tab PO DAILY SANDY (unknown) (no (unknown) (unknown) Neuro (units (unkno wn) date) unknown) (unknown) (no (unknown) (unknown) Neut # (Auto) (units ( unknown) date) (9468-7752) /uL unknown) (unknown) (no (unknown) (unknown) Neut # (Auto) 2600 (units (unknown) date) (3401-8155) /uL unknown) (unknown) (no (unknown) (unknown) Neut % (Auto) (units ( unknown) date) (50-75) % unknown) (unknown) (no (unknown) (unknown) Neut % (Auto) 60.0 (units (unknown) date) (50-75) % unknown) (unknown) (no (unknown) (unknown) No Action (units (unkn own) date) unknown) (unknown) (no (unknown) (unknown) Obesity (units (unkno wn) date) unknown) (unknown) (no (unknown) (unknown) Ordered: (units (unkno wn) date) unknown) (unknown) (no (unknown) (unknown) Orders (units (unkno wn) date) unknown) (unknown) (no (unknown) (unknown) Other: (units (unkno wn) date) unknown) (unknown) (no (unknown) (unknown) Overweight (units (unk nown) date) unknown) (unknown) (no (unknown) (unknown) Oxygen Delivery (units (unknown) date) Method Room Air unknown) 07/31/22 12:30 (unknown) (no (unknown) (unknown) Oxygen Delivery (units (unknown) date) Method Room Air unknown) (unknown) (no (unknown) (unknown) Patient History (units (unknown) date) unknown) (unknown) (no (unknown) (unknown) Patient is a (units (u nknown) date) 31-year-old female. unknown) Has a history of alcohol use disorder. Has (unknown) (no (unknown) (unknown) Patient is alert (units (unknown) date) oriented. Has unknown) tremors. No seizure activity. Moves all 4 (unknown) (no (unknown) (unknown) Patient: (units (unkno wn) date) Sarah Connors R unknown) MR#: M (unknown) (no (unknown) (unknown) Phenobarbital (units ( unknown) date) (Phenobarbital 65 unknown) Mg/Ml Vial) 260 mg IV NOW ONE (unknown) (no (unknown) (unknown) Plt Count (units (unkn own) date) (150-400) X103/uL unknown) (unknown) (no (unknown) (unknown) Plt Count 229 (units ( unknown) date) (150-400) X103/uL unknown) (unknown) (no (unknown) (unknown) Point of Care (units ( unknown) date) Testing unknown) (unknown) (no (unknown) (unknown) Point of care (units ( unknown) date) testing: unknown) (unknown) (no (unknown) (unknown) Potassium (units (unkn own) date) (3.4-5.1) mmol/L unknown) (unknown) (no (unknown) (unknown) Potassium 3.8 (units ( unknown) date) (3.4-5.1) mmol/L unknown) (unknown) (no (unknown) (unknown) Test (units (unknown) date) Results Negative unknown) (unknown) (no (unknown) (unknown) Test (units (unknown) date) Serum,Qual Stat unknown) (unknown) (no (unknown) (unknown) Prescriptions: (units (unknown) date) unknown) (unknown) (no (unknown) (unknown) Previous Rx's (units ( unknown) date) unknown) (unknown) (no (unknown) (unknown) Psych (units (unkno wn) date) unknown) (unknown) (no (unknown) (unknown) Pulse Oximetry 100 (units (unknown) date) 07/31/22 12:30 unknown) (unknown) (no (unknown) (unknown) Pulse Oximetry 100 (units (unknown) date) unknown) (unknown) (no (unknown) (unknown) Pulse Rate 68 (units ( unknown) date) 07/31/22 12:30 unknown) (unknown) (no (unknown) (unknown) Pulse Rate 68 (units ( unknown) date) unknown) (unknown) (no (unknown) (unknown) RBC (4.0-5.2) (units ( unknown) date) X106/uL unknown) (unknown) (no (unknown) (unknown) RBC 4.02 (4.0-5.2) (units (unknown) date) X106/uL unknown) (unknown) (no (unknown) (unknown) RDW (11.6-14.8) % (units (unknown) date) unknown) (unknown) (no (unknown) (unknown) RDW 19.5 H (units (unk nown) date) (11.6-14.8) % unknown) (unknown) (no (unknown) (unknown) ROS Unobtainable: (units (unknown) date) All systems unknown) reviewed + are unremarkable except as noted in HPI (unknown) (no (unknown) (unknown) Rate: regular rate (units (unknown) date) unknown) (unknown) (no (unknown) (unknown) Referrals: (units (unk nown) date) unknown) (unknown) (no (unknown) (unknown) Related Data (units (u nknown) date) unknown) (unknown) (no (unknown) (unknown) Resp (units (unkno wn) date) unknown) (unknown) (no (unknown) (unknown) Respiratory Rate (units (unknown) date) 17 07/31/22 12:30 unknown) (unknown) (no (unknown) (unknown) Respiratory Rate (units (unknown) date) 17 unknown) (unknown) (no (unknown) (unknown) Review of Systems (units (unknown) date) unknown) (unknown) (no (unknown) (unknown) Rhythm: regular (units (unknown) date) rhythm unknown) (unknown) (no (unknown) (unknown) S/P myringotomy [...] nown) date) unknown) (unknown) (no (unknown) (unknown) Skin (units (unkno wn) date) unknown) (unknown) (no (unknown) (unknown) Smoker (units (unkno wn) date) unknown) (unknown) (no (unknown) (unknown) Smoking Status: (units (unknown) date) Former smoker unknown) (unknown) (no (unknown) (unknown) Social History (units (unknown) date) (Reviewed 07/31/22 unknown) @ 14:40 by Will Benitez DO) (unknown) (no (unknown) (unknown) Sodium (137-145) (units (unknown) date) mmol/L unknown) (unknown) (no (unknown) (unknown) Sodium 137 (units (unk nown) date) (137-145) mmol/L unknown) (unknown) (no (unknown) (unknown) Source: patient (units (unknown) date) unknown) (unknown) (no (unknown) (unknown) Stated complaint: (units (unknown) date) SOB, tremors unknown) (unknown) (no (unknown) (unknown) Stop: 07/31/22 (units (unknown) date) 12:36 unknown) (unknown) (no (unknown) (unknown) Substance Use (units ( unknown) date) Type: does not use unknown) (unknown) (no (unknown) (unknown) Surgical History (units (unknown) date) (Reviewed 07/13/22 unknown) @ 06:49 by LYUDMILA Borden) (unknown) (no (unknown) (unknown) Temperature 97.7 F (units (unknown) date) 07/31/22 12:30 unknown) (unknown) (no (unknown) (unknown) Temperature 97.7 F (units (unknown) date) unknown) (unknown) (no (unknown) (unknown) Thiamine HCl 200 (units (unknown) date) mg/ Sodium unknown) (Chloride) 102 mls @ 408 mls/hr IV DAILY SANYD (unknown) (no (unknown) (unknown) Time Seen by (units (u nknown) date) Provider: 07/31/22 unknown) 12:35 (unknown) (no (unknown) (unknown) Total Bilirubin (units (unknown) date) (0.2-1.3) mg/dL unknown) (unknown) (no (unknown) (unknown) Total Bilirubin (units (unknown) date) 0.8 (0.2-1.3) mg/dL unknown) (unknown) (no (unknown) (unknown) Total Protein (units ( unknown) date) (6.3-8.2) g/dL unknown) (unknown) (no (unknown) (unknown) Total Protein 7.2 (units (unknown) date) (6.3-8.2) g/dL unknown) (unknown) (no (unknown) (unknown) U Benzodiazepines (units (unknown) date) Scrn (Negative) unknown) (unknown) (no (unknown) (unknown) U Benzodiazepines (units (unknown) date) Scrn Positive H unknown) (Negative) (unknown) (no (unknown) (unknown) U Marijuana (THC) (units (unknown) date) Screen (Negative) unknown) (unknown) (no (unknown) (unknown) U Marijuana (THC) (units (unknown) date) Screen Negative unknown) (Negative) (unknown) (no (unknown) (unknown) U Methamphetamines (units (unknown) date) Scrn (Negative) unknown) (unknown) (no (unknown) (unknown) U Methamphetamines (units (unknown) date) Scrn Negative unknown) (Negative) (unknown) (no (unknown) (unknown) U Opiates 300ng/mL (units (unknown) date) cut (Negative) unknown) (unknown) (no (unknown) (unknown) U Opiates 300ng/mL (units (unknown) date) cut Negative unknown) (Negative) (unknown) (no (unknown) (unknown) U Tricyclic (units (un known) date) Antidepress unknown) (Negative) (unknown) (no (unknown) (unknown) U Tricyclic (units (un known) date) Antidepress unknown) Positive H (Negative) (unknown) (no (unknown) (unknown) Ur Amphetamines (units (unknown) date) Screen (Negative) unknown) (unknown) (no (unknown) (unknown) Ur Amphetamines (units (unknown) date) Screen Negative unknown) (Negative) (unknown) (no (unknown) (unknown) Ur Barbiturates (units (unknown) date) Screen (Negative) unknown) (unknown) (no (unknown) (unknown) Ur Barbiturates (units (unknown) date) Screen Positive H unknown) (Negative) (unknown) (no (unknown) (unknown) Ur Bilirubin (units (u nknown) date) Confirm (Negative) unknown) (unknown) (no (unknown) (unknown) Ur Bilirubin (units (u nknown) date) Confirm Negative unknown) (Negative) (unknown) (no (unknown) (unknown) Ur Culture (units (unk nown) date) Indicated? Cult not unknown) indicated (unknown) (no (unknown) (unknown) Ur Culture (units (unk nown) date) Indicated? unknown) (unknown) (no (unknown) (unknown) Ur Leukocyte (units (u nknown) date) Esterase (NEGATIVE) unknown) (unknown) (no (unknown) (unknown) Ur Leukocyte (units (u nknown) date) Esterase Negative unknown) (NEGATIVE) (unknown) (no (unknown) (unknown) Ur MDMA Scrn (units (u nknown) date) (Ecstasy) unknown) (Negative) (unknown) (no (unknown) (unknown) Ur MDMA Scrn (units (u nknown) date) (Ecstasy) Negative unknown) (Negative) (unknown) (no (unknown) (unknown) Ur Oxycodone (units (u nknown) date) Screen (Negative) unknown) (unknown) (no (unknown) (unknown) Ur Oxycodone (units (u nknown) date) Screen Negative unknown) (Negative) (unknown) (no (unknown) (unknown) Ur Phencyclidine (units (unknown) date) Scrn (Negative) unknown) (unknown) (no (unknown) (unknown) Ur Phencyclidine (units (unknown) date) Scrn Negative unknown) (Negative) (unknown) (no (unknown) (unknown) Ur Specific (units (un known) date) [place] >=1.030 H unknown) (1.000-1.035) (unknown) (no (unknown) (unknown) Ur Specific (units (un known) date) [place] unknown) (1.000-1.035) (unknown) (no (unknown) (unknown) Ur Squamous Epith (units (unknown) date) Cells (0-5/HPF) unknown) (unknown) (no (unknown) (unknown) Ur Squamous Epith (units (unknown) date) Cells 5-10 /hpf H unknown) (0-5/HPF) (unknown) (no (unknown) (unknown) Urinalysis and (units (unknown) date) Microscopic Stat unknown) (unknown) (no (unknown) (unknown) Urine Appearance (units (unknown) date) Sl cloudy unknown) (unknown) (no (unknown) (unknown) Urine Appearance (units (unknown) date) unknown) (unknown) (no (unknown) (unknown) Urine Bacteria (units (unknown) date) (None) unknown) (unknown) (no (unknown) (unknown) Urine Bacteria (units (unknown) date) None seen (None) unknown) (unknown) (no (unknown) (unknown) Urine Bilirubin (units (unknown) date) (NEGATIVE) unknown) (unknown) (no (unknown) (unknown) Urine Bilirubin 1+ (units (unknown) date) H D (NEGATIVE) unknown) (unknown) (no (unknown) (unknown) Urine Cocaine (units ( unknown) date) Screen (Negative) unknown) (unknown) (no (unknown) (unknown) Urine Cocaine (units ( unknown) date) Screen Negative unknown) (Negative) (unknown) (no (unknown) (unknown) Urine Color Yellow (units (unknown) date) unknown) (unknown) (no (unknown) (unknown) Urine Color (units (un known) date) unknown) (unknown) (no (unknown) (unknown) Urine Dip (units (unkn own) date) unknown) (unknown) (no (unknown) (unknown) Urine Drug Screen, (units (unknown) date) Rapid Stat unknown) (unknown) (no (unknown) (unknown) Urine Glucose (UA) (units (unknown) date) (Negative) g/dL unknown) (unknown) (no (unknown) (unknown) Urine Glucose (UA) (units (unknown) date) Negative (Negative) unknown) g/dL (unknown) (no (unknown) (unknown) Urine Ketones (units ( unknown) date) (NEGATIVE) unknown) (unknown) (no (unknown) (unknown) Urine Ketones 1+ H (units (unknown) date) (NEGATIVE) unknown) (unknown) (no (unknown) (unknown) Urine Methadone (units (unknown) date) Screen (Negative) unknown) (unknown) (no (unknown) (unknown) Urine Methadone (units (unknown) date) Screen Negative unknown) (Negative) (unknown) (no (unknown) (unknown) Urine Nitrate (units ( unknown) date) (Negative) unknown) (unknown) (no (unknown) (unknown) Urine Nitrate (units ( unknown) date) Negative (Negative) unknown) (unknown) (no (unknown) (unknown) Urine Occult Blood (units (unknown) date) (Negative) unknown) (unknown) (no (unknown) (unknown) Urine Occult Blood (units (unknown) date) Negative (Negative) unknown) (unknown) (no (unknown) (unknown) Urine Protein (units ( unknown) date) (Negative) unknown) (unknown) (no (unknown) (unknown) Urine Protein (units ( unknown) date) Trace H (Negative) unknown) (unknown) (no (unknown) (unknown) Urine RBC (units (unkn own) date) (0-5/HPF) unknown) (unknown) (no (unknown) (unknown) Urine RBC None (units (unknown) date) seen (0-5/HPF) unknown) (unknown) (no (unknown) (unknown) Urine Specific (units (unknown) date) [place] 1.030 unknown) (unknown) (no (unknown) (unknown) Urine Urobilinogen (units (unknown) date) (0.2) E.U./dL unknown) (unknown) (no (unknown) (unknown) Urine Urobilinogen (units (unknown) date) 0.2 (0.2) E.U./dL unknown) (unknown) (no (unknown) (unknown) Urine WBC (units (unkn own) date) (0-5/HPF) unknown) (unknown) (no (unknown) (unknown) Urine WBC None (units (unknown) date) seen (0-5/HPF) unknown) (unknown) (no (unknown) (unknown) Urine pH (4.5-8.0) (units (unknown) date) unknown) (unknown) (no (unknown) (unknown) Urine pH 6.0 (units (u nknown) date) (4.5-8.0) unknown) (unknown) (no (unknown) (unknown) Vital Signs - 8 hr (units (unknown) date) unknown) (unknown) (no (unknown) (unknown) Vital Signs (units (un known) date) unknown) (unknown) (no (unknown) (unknown) Vital signs: (units (u nknown) date) unknown) (unknown) (no (unknown) (unknown) WBC (4.5-11.0) (units (unknown) date) X103/uL unknown) (unknown) (no (unknown) (unknown) WBC 4.4 L (units (unkn own) date) (4.5-11.0) X103/uL unknown) (unknown) (no (unknown) (unknown) [Embedded Image (units (unknown) date) Not Available] unknown) (unknown) (no (unknown) (unknown) [METOCLOPRAMIDE] (units (unknown) date) unknown) (unknown) (no (unknown) (unknown) alcohol intake (units (unknown) date) frequency: 3 or unknown) more drinks per day (unknown) (no (unknown) (unknown) alcohol intake: (units (unknown) date) former unknown) (unknown) (no (unknown) (unknown) and below (units (unkn own) date) unknown) (unknown) (no (unknown) (unknown) current (units (unkno wn) date) occupational unknown) exposures/hazards: Yes (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 with Pandemic ) (unknown) (no (unknown) (unknown) department for (units (unknown) date) alcohol withdrawal. unknown) She states that after she was discharged she (unknown) (no (unknown) (unknown) drink was on (units (u nknown) date) Saturday. She states unknown) that since she is stopped drinking she has had (unknown) (no (unknown) (unknown) education level: (units (unknown) date) college unknown) (unknown) (no (unknown) (unknown) extremities. Is (units (unknown) date) ambulatory. unknown) (unknown) (no (unknown) (unknown) renee/zoroastrianism: (units (unknown) date) Buddhist unknown) (unknown) (no (unknown) (unknown) fluoxetine 10 mg (units (unknown) date) capsule 10 mg PO unknown) DAILY 07/13/22 07/13/22 (unknown) (no (unknown) (unknown) fluoxetine 10 mg (units (unknown) date) capsule unknown) (unknown) (no (unknown) (unknown) household members: (units (unknown) date) children unknown) (unknown) (no (unknown) (unknown) hydrocodone (units (un known) date) [HYDROCODONE] unknown) AdvReac Unknown VOMITING Verified 07/12/22 16:18 (unknown) (no (unknown) (unknown) hydroxyzine HCl 50 (units (unknown) date) mg tablet 50 mg PO unknown) DAILY 07/13/22 07/13/22 (unknown) (no (unknown) (unknown) hydroxyzine HCl 50 (units (unknown) date) mg tablet unknown) (unknown) (no (unknown) (unknown) marital status: (units (unknown) date) unknown) (unknown) (no (unknown) (unknown) mcg tablet (units (unk nown) date) (Tab-A-Kael) unknown) (unknown) (no (unknown) (unknown) metoclopramide (units (unknown) date) Allergy Mild unknown) RASH/HIVES Verified 07/12/22 16:18 (unknown) (no (unknown) (unknown) mg tablet (units (unkn own) date) unknown) (unknown) (no (unknown) (unknown) multivitamin with (units (unknown) date) folic acid 400 1 unknown) tab PO DAILY #30 tabs 07/14/22 (unknown) (no (unknown) (unknown) multivitamin with (units (unknown) date) folic acid unknown) [Tab-A-Kael] 400 mcg Tablet (unknown) (no (unknown) (unknown) number of (units (unkn own) date) children: 1 unknown) (unknown) (no (unknown) (unknown) occupational (units (u nknown) date) status: employed unknown) (unknown) (no (unknown) (unknown) pantoprazole 40 mg (units (unknown) date) Tablet,Delayed unknown) Release (Dr/Ec) (unknown) (no (unknown) (unknown) pantoprazole 40 mg (units (unknown) date) tablet,delayed 40 unknown) mg PO 0700 #30 tabs 07/14/22 (unknown) (no (unknown) (unknown) past. At the (units (u nknown) date) beginning of the unknown) month and an extended stay here in the emergency (unknown) (no (unknown) (unknown) quetiapine 300 mg (units (unknown) date) tablet 300 mg PO unknown) DAILY 07/13/22 07/13/22 (unknown) (no (unknown) (unknown) quetiapine 300 mg (units (unknown) date) tablet unknown) (unknown) (no (unknown) (unknown) release (units (unkno wn) date) unknown) (unknown) (no (unknown) (unknown) second hand (units (un known) date) exposure: No unknown) (growing up as a child - not currently) (unknown) (no (unknown) (unknown) shaking and nausea (units (unknown) date) and shortness of unknown) breath and tremors and generally not feeling (unknown) (no (unknown) (unknown) special renee (units ( unknown) date) needs: No unknown) (unknown) (no (unknown) (unknown) substance use (units ( unknown) date) type: does not use unknown) (unknown) (no (unknown) (unknown) thiamine (units (unkno wn) date) mononitrate (vit unknown) B1) 100 100 mg PO DAILY #30 tabs 07/14/22 (unknown) (no (unknown) (unknown) thiamine (units (unkno wn) date) mononitrate (vit unknown) B1) 100 mg Tablet (unknown) (no (unknown) (unknown) very well. No (units ( unknown) date) seizure-like unknown) activity. She denies any other ingestions. (unknown) (no (unknown) (unknown) went back to (units (u nknown) date) drinking and went unknown) on a ?[place] ?this was a couple days. Her last (unknown) (no (unknown) (unknown) withdrawn from (units (unknown) date) alcohol in the unknown) past. She states she is had a seizure in the Result panel [id number] (unknown) (no (unknown) (unknown) (no value) (units (unk nown) date) unknown) (unknown) (no (unknown) (unknown) [id number] (units (unkn own) date) unknown) (unknown) (no (unknown) (unknown) 07/31/22 07/31/22 (units (unknown) date) 07/31/22 unknown) Range/Units (unknown) (no (unknown) (unknown) 07/31/22 12:40 (units (unknown) date) unknown) (unknown) (no (unknown) (unknown) 07/31/22 13:41 (units (unknown) date) unknown) (unknown) (no (unknown) (unknown) 07/31/22 (units (unkno wn) date) Range/Units unknown) (unknown) (no (unknown) (unknown) 07/31/22 (units (unkno wn) date) unknown) (unknown) (no (unknown) (unknown) 1 tab PO DAILY (units (unknown) date) Qty: 30 0RF unknown) (unknown) (no (unknown) (unknown) 10 mg PO DAILY (units (unknown) date) unknown) (unknown) (no (unknown) (unknown) 100 mg PO DAILY (units (unknown) date) Qty: 30 0RF unknown) (unknown) (no (unknown) (unknown) 12:30 07/31/22 (units (unknown) date) unknown) (unknown) (no (unknown) (unknown) 12:40 12:40 12:40 (units (unknown) date) unknown) (unknown) (no (unknown) (unknown) 12:40 13:41 13:41 (units (unknown) date) unknown) (unknown) (no (unknown) (unknown) 12:44 07/31/22 (units (unknown) date) unknown) (unknown) (no (unknown) (unknown) 12:46 07/31/22 (units (unknown) date) unknown) (unknown) (no (unknown) (unknown) 12:46 (units (unkno wn) date) unknown) (unknown) (no (unknown) (unknown) 13:00 07/31/22 (units (unknown) date) unknown) (unknown) (no (unknown) (unknown) 13:00 (units (unkno wn) date) unknown) (unknown) (no (unknown) (unknown) 13:08 07/31/22 (units (unknown) date) unknown) (unknown) (no (unknown) (unknown) 13:13 07/31/22 (units (unknown) date) unknown) (unknown) (no (unknown) (unknown) 13:13 (units (unkno wn) date) unknown) (unknown) (no (unknown) (unknown) 13:16 07/31/22 (units (unknown) date) unknown) (unknown) (no (unknown) (unknown) 13:16 (units (unkno wn) date) unknown) (unknown) (no (unknown) (unknown) 13:20 07/31/22 (units (unknown) date) unknown) (unknown) (no (unknown) (unknown) 13:26 07/31/22 (units (unknown) date) unknown) (unknown) (no (unknown) (unknown) 13:26 (units (unkno wn) date) unknown) (unknown) (no (unknown) (unknown) 13:30 07/31/22 (units (unknown) date) unknown) (unknown) (no (unknown) (unknown) 13:41 (units (unkno wn) date) unknown) (unknown) (no (unknown) (unknown) 14:00 (units (unkno wn) date) unknown) (unknown) (no (unknown) (unknown) 14:30 07/31/22 (units (unknown) date) unknown) (unknown) (no (unknown) (unknown) 15:00 07/31/22 (units (unknown) date) unknown) (unknown) (no (unknown) (unknown) 15:01 07/31/22 (units (unknown) date) unknown) (unknown) (no (unknown) (unknown) 15:01 (units (unkno wn) date) unknown) (unknown) (no (unknown) (unknown) 15:06 07/31/22 (units (unknown) date) unknown) (unknown) (no (unknown) (unknown) 15:06 (units (unkno wn) date) unknown) (unknown) (no (unknown) (unknown) 15:11 07/31/22 (units (unknown) date) unknown) (unknown) (no (unknown) (unknown) 15:16 07/31/22 (units (unknown) date) unknown) (unknown) (no (unknown) (unknown) 15:16 (units (unkno wn) date) unknown) (unknown) (no (unknown) (unknown) 15:20 07/31/22 (units (unknown) date) unknown) (unknown) (no (unknown) (unknown) 15:20 (units (unkno wn) date) unknown) (unknown) (no (unknown) (unknown) 15:30 07/31/22 (units (unknown) date) unknown) (unknown) (no (unknown) (unknown) 15:35 07/31/22 (units (unknown) date) unknown) (unknown) (no (unknown) (unknown) 15:35 (units (unkno wn) date) unknown) (unknown) (no (unknown) (unknown) 15:45 07/31/22 (units (unknown) date) unknown) (unknown) (no (unknown) (unknown) 16:00 07/31/22 (units (unknown) date) unknown) (unknown) (no (unknown) (unknown) 16:00 (units (unkno wn) date) unknown) (unknown) (no (unknown) (unknown) 16:05 07/31/22 (units (unknown) date) unknown) (unknown) (no (unknown) (unknown) 16:05 (units (unkno wn) date) unknown) (unknown) (no (unknown) (unknown) 16:10 07/31/22 (units (unknown) date) unknown) (unknown) (no (unknown) (unknown) 16:15 07/31/22 (units (unknown) date) unknown) (unknown) (no (unknown) (unknown) 16:15 (units (unkno wn) date) unknown) (unknown) (no (unknown) (unknown) 16:21 07/31/22 (units (unknown) date) unknown) (unknown) (no (unknown) (unknown) 16:21 (units (unkno wn) date) unknown) (unknown) (no (unknown) (unknown) 16:26 07/31/22 (units (unknown) date) unknown) (unknown) (no (unknown) (unknown) 16:30 (units (unkno wn) date) unknown) (unknown) (no (unknown) (unknown) 16:31 07/31/22 (units (unknown) date) unknown) (unknown) (no (unknown) (unknown) 16:35 07/31/22 (units (unknown) date) unknown) (unknown) (no (unknown) (unknown) 16:35 (units (unkno wn) date) unknown) (unknown) (no (unknown) (unknown) 16:46 07/31/22 (units (unknown) date) unknown) (unknown) (no (unknown) (unknown) 16:46 (units (unkno wn) date) unknown) (unknown) (no (unknown) (unknown) 16:51 07/31/22 (units (unknown) date) unknown) (unknown) (no (unknown) (unknown) 17:00 (units (unkno wn) date) unknown) (unknown) (no (unknown) (unknown) 17:11 07/31/22 (units (unknown) date) unknown) (unknown) (no (unknown) (unknown) 17:11 (units (unkno wn) date) unknown) (unknown) (no (unknown) (unknown) 300 mg PO DAILY (units (unknown) date) unknown) (unknown) (no (unknown) (unknown) 40 mg PO 0700 Qty: (units (unknown) date) 30 0RF unknown) (unknown) (no (unknown) (unknown) 50 mg PO DAILY (units (unknown) date) unknown) (unknown) (no (unknown) (unknown) ALT (<35) IU/L (units (unknown) date) unknown) (unknown) (no (unknown) (unknown) ALT 25 (<35) IU/L (units (unknown) date) unknown) (unknown) (no (unknown) (unknown) AST (14-36) IU/L (units (unknown) date) unknown) (unknown) (no (unknown) (unknown) AST 77 H (14-36) (units (unknown) date) IU/L unknown) (unknown) (no (unknown) (unknown) Admin: 07/31/22 (units (unknown) date) 12:59 Dose: 408 unknown) mls/hr (unknown) (no (unknown) (unknown) Age/Sex: 31 / F (units (unknown) date) unknown) (unknown) (no (unknown) (unknown) Albumin (3.5-5.0) (units (unknown) date) g/dL unknown) (unknown) (no (unknown) (unknown) Albumin 4.4 (units (un known) date) (3.5-5.0) g/dL unknown) (unknown) (no (unknown) (unknown) Albumin/Globulin (units (unknown) date) Ratio (1.0-2.8) unknown) (unknown) (no (unknown) (unknown) Albumin/Globulin (units (unknown) date) Ratio 1.6 (1.0-2.8) unknown) (unknown) (no (unknown) (unknown) Alcohol withdrawal (units (unknown) date) delirium, acute, unknown) hyperactive (unknown) (no (unknown) (unknown) Alcoholism (units (unk nown) date) unknown) (unknown) (no (unknown) (unknown) Alkaline (units (unkno wn) date) Phosphatase unknown) (38-126) U/L (unknown) (no (unknown) (unknown) Alkaline (units (unkno wn) date) Phosphatase 76 unknown) (38-126) U/L (unknown) (no (unknown) (unknown) Allergies (units (unkn own) date) unknown) (unknown) (no (unknown) (unknown) Allergy/AdvReac (units (unknown) date) Type Severity unknown) Reaction Status Date / Time (unknown) (no (unknown) (unknown) Anemia (-2018) (units (unknown) date) unknown) (unknown) (no (unknown) (unknown) Auscultation: (units ( unknown) date) clear to unknown) auscultation bilaterally (unknown) (no (unknown) (unknown) BUN (7-17) mg/dL (units (unknown) date) unknown) (unknown) (no (unknown) (unknown) BUN 12 (7-17) (units ( unknown) date) mg/dL unknown) (unknown) (no (unknown) (unknown) BUN/Creatinine (units (unknown) date) Ratio (6-22) unknown) (unknown) (no (unknown) (unknown) BUN/Creatinine (units (unknown) date) Ratio 17.4 (6-22) unknown) (unknown) (no (unknown) (unknown) Baso # (Auto) (units ( unknown) date) (0-100) /uL unknown) (unknown) (no (unknown) (unknown) Baso # (Auto) 0 (units (unknown) date) (0-100) /uL unknown) (unknown) (no (unknown) (unknown) Baso % (Auto) (units ( unknown) date) (0-2) % unknown) (unknown) (no (unknown) (unknown) Baso % (Auto) 1.0 (units (unknown) date) (0-2) % unknown) (unknown) (no (unknown) (unknown) Bedside Urine (units ( unknown) date) Bilirubin + 1 unknown) (unknown) (no (unknown) (unknown) Bedside Urine (units ( unknown) date) Glucose Negative unknown) (unknown) (no (unknown) (unknown) Bedside Urine (units ( unknown) date) Ketone + 15 unknown) (unknown) (no (unknown) (unknown) Bedside Urine (units ( unknown) date) Leukocytes - unknown) Negative (unknown) (no (unknown) (unknown) Bedside Urine (units ( unknown) date) Nitrite - Negative unknown) (unknown) (no (unknown) (unknown) Bedside Urine (units ( unknown) date) Occult Blood - unknown) Negative (unknown) (no (unknown) (unknown) Bedside Urine (units ( unknown) date) Protein + 30 unknown) (unknown) (no (unknown) (unknown) Bedside Urine (units ( unknown) date) Urobilinogen - unknown) Negative (unknown) (no (unknown) (unknown) Bedside Urine pH (units (unknown) date) 6.0 unknown) (unknown) (no (unknown) (unknown) Blood Pressure (units (unknown) date) 111/63 110/61 unknown) (unknown) (no (unknown) (unknown) Blood Pressure (units (unknown) date) 111/70 unknown) (unknown) (no (unknown) (unknown) Blood Pressure (units (unknown) date) 112/65 unknown) (unknown) (no (unknown) (unknown) Blood Pressure (units (unknown) date) 113/59 L unknown) (unknown) (no (unknown) (unknown) Blood Pressure (units (unknown) date) 113/71 unknown) (unknown) (no (unknown) (unknown) Blood Pressure (units (unknown) date) 113/73 116/75 unknown) (unknown) (no (unknown) (unknown) Blood Pressure (units (unknown) date) 116/53 L 124/73 unknown) (unknown) (no (unknown) (unknown) Blood Pressure (units (unknown) date) 117/56 L unknown) (unknown) (no (unknown) (unknown) Blood Pressure (units (unknown) date) 118/69 116/81 unknown) (unknown) (no (unknown) (unknown) Blood Pressure (units (unknown) date) 119/61 unknown) (unknown) (no (unknown) (unknown) Blood Pressure (units (unknown) date) 120/75 unknown) (unknown) (no (unknown) (unknown) Blood Pressure (units (unknown) date) 120/78 163/104 H unknown) (unknown) (no (unknown) (unknown) Blood Pressure (units (unknown) date) 121/63 unknown) (unknown) (no (unknown) (unknown) Blood Pressure (units (unknown) date) 126/90 129/66 unknown) (unknown) (no (unknown) (unknown) Blood Pressure (units (unknown) date) 137/65 118/80 unknown) (unknown) (no (unknown) (unknown) Blood Pressure (units (unknown) date) 137/84 07/31/22 unknown) 12:30 (unknown) (no (unknown) (unknown) Blood Pressure (units (unknown) date) 137/84 unknown) (unknown) (no (unknown) (unknown) Blood Pressure (units (unknown) date) 138/79 unknown) (unknown) (no (unknown) (unknown) Blood Pressure (units (unknown) date) 152/88 H 134/72 unknown) (unknown) (no (unknown) (unknown) Blood Pressure (units (unknown) date) unknown) (unknown) (no (unknown) (unknown) Calcium (8.4-10.2) (units (unknown) date) mg/dL unknown) (unknown) (no (unknown) (unknown) Calcium 8.7 (units (un known) date) (8.4-10.2) mg/dL unknown) (unknown) (no (unknown) (unknown) Carbon Dioxide (units (unknown) date) (22-32) mmol/L unknown) (unknown) (no (unknown) (unknown) Carbon Dioxide 24 (units (unknown) date) (22-32) mmol/L unknown) (unknown) (no (unknown) (unknown) Cardio (units (unkno wn) date) unknown) (unknown) (no (unknown) (unknown) Chief complaint: (units (unknown) date) Toxicology Problem unknown) (unknown) (no (unknown) (unknown) Chloride (98-107) (units (unknown) date) mmol/L unknown) (unknown) (no (unknown) (unknown) Chloride 105 (units (u nknown) date) (98-107) mmol/L unknown) (unknown) (no (unknown) (unknown) Complete Blood (units (unknown) date) Count AUTO DIFF unknown) Stat (unknown) (no (unknown) (unknown) Comprehensive (units ( unknown) date) Metabolic Panel unknown) Stat (unknown) (no (unknown) (unknown) Const (units (unkno wn) date) unknown) (unknown) (no (unknown) (unknown) Course (units (unkno wn) date) unknown) (unknown) (no (unknown) (unknown) Creatinine (units (unk nown) date) (0.52-1.04) mg/dL unknown) (unknown) (no (unknown) (unknown) Creatinine 0.69 (units (unknown) date) (0.52-1.04) mg/dL unknown) (unknown) (no (unknown) (unknown) : 1990 (units (unknown) date) Acct:[id number] unknown) (unknown) (no (unknown) (unknown) Date of Service: (units (unknown) date) 07/31/22 unknown) (unknown) (no (unknown) (unknown) Departure (units (unkn own) date) unknown) (unknown) (no (unknown) (unknown) Discharge Plan (units (unknown) date) unknown) (unknown) (no (unknown) (unknown) Discontinued (units (u nknown) date) Medications unknown) (unknown) (no (unknown) (unknown) Documented By: OSCAR (units (unknown) date) unknown) (unknown) (no (unknown) (unknown) Documented By: GRADY (units (unknown) date) unknown) (unknown) (no (unknown) (unknown) ED Orders (units (unkn own) date) unknown) (unknown) (no (unknown) (unknown) ER Physician: (units ( unknown) date) Will Benitez D.O. unknown) (unknown) (no (unknown) (unknown) Effort + (units (unkno wn) date) Inspection: normal unknown) respiratory effort (unknown) (no (unknown) (unknown) Emergency Report (units (unknown) date) unknown) (unknown) (no (unknown) (unknown) Eos # (Auto) (units (u nknown) date) (0-450) /uL unknown) (unknown) (no (unknown) (unknown) Eos # (Auto) 100 (units (unknown) date) (0-450) /uL unknown) (unknown) (no (unknown) (unknown) Eos % (Auto) (2-4) (units (unknown) date) % unknown) (unknown) (no (unknown) (unknown) Eos % (Auto) 3.3 (units (unknown) date) (2-4) % unknown) (unknown) (no (unknown) (unknown) Esterase (units (unkno wn) date) unknown) (unknown) (no (unknown) (unknown) Estimated GFR > 60 (units (unknown) date) (>60) mL/min unknown) (unknown) (no (unknown) (unknown) Estimated GFR (units ( unknown) date) (>60) mL/min unknown) (unknown) (no (unknown) (unknown) Ethanol (ETOH) (units (unknown) date) Stat unknown) (unknown) (no (unknown) (unknown) Ethyl Alcohol < 10 (units (unknown) date) ( - 10) mg/dL unknown) (unknown) (no (unknown) (unknown) Ethyl Alcohol ( - (units (unknown) date) 10) mg/dL unknown) (unknown) (no (unknown) (unknown) Exam (units (unkno wn) date) unknown) (unknown) (no (unknown) (unknown) Extrem (units (unkno wn) date) unknown) (unknown) (no (unknown) (unknown) Family History (units (unknown) date) (Reviewed 07/13/22 unknown) @ 06:49 by LYUDMILA Borden) (unknown) (no (unknown) (unknown) Family/Other (units (u nknown) date) Alcoholism unknown) (unknown) (no (unknown) (unknown) Family/Other (units (u nknown) date) Diabetes mellitus unknown) (unknown) (no (unknown) (unknown) Father Alcoholism (units (unknown) date) unknown) (unknown) (no (unknown) (unknown) Tonia Schneider MD (units (unknown) date) [Primary Care unknown) Provider] (unknown) (no (unknown) (unknown) General (units (unkno wn) date) unknown) (unknown) (no (unknown) (unknown) General: (units (unkno wn) date) cooperative unknown) (unknown) (no (unknown) (unknown) General: no rashes (units (unknown) date) or lesions noted unknown) (unknown) (no (unknown) (unknown) General: normal to (units (unknown) date) inspection unknown) (unknown) (no (unknown) (unknown) Globulin (1.7-4.1) (units (unknown) date) g/dL unknown) (unknown) (no (unknown) (unknown) Globulin 2.8 (units (u nknown) date) (1.7-4.1) g/dL unknown) (unknown) (no (unknown) (unknown) Glucose (70-100) (units (unknown) date) mg/dL unknown) (unknown) (no (unknown) (unknown) Glucose 102 H (units ( unknown) date) (70-100) mg/dL [...] extraction () unknown) (unknown) (no (unknown) (unknown) HENMT (units (unkno wn) date) unknown) (unknown) (no (unknown) (unknown) HPI - General (units ( unknown) date) Adult unknown) (unknown) (no (unknown) (unknown) HPI narrative: (units (unknown) date) unknown) (unknown) (no (unknown) (unknown) Hct (36-46) % (units ( unknown) date) unknown) (unknown) (no (unknown) (unknown) Hct 32.3 L (36-46) (units (unknown) date) % unknown) (unknown) (no (unknown) (unknown) Head: normal to (units (unknown) date) inspection and unknown) normocephalic (unknown) (no (unknown) (unknown) Hgb (12.0-16.0) (units (unknown) date) g/dL unknown) (unknown) (no (unknown) (unknown) Hgb 10.6 L (units (unk nown) date) (12.0-16.0) g/dL unknown) (unknown) (no (unknown) (unknown) History of Present (units (unknown) date) Illness unknown) (unknown) (no (unknown) (unknown) Home Medications (units (unknown) date) unknown) (unknown) (no (unknown) (unknown) Ictotest Urine (units (unknown) date) Stat unknown) (unknown) (no (unknown) (unknown) Initial Vital (units ( unknown) date) Signs unknown) (unknown) (no (unknown) (unknown) Initial Vital (units ( unknown) date) Signs: unknown) (unknown) (no (unknown) (unknown) Insomnia (units (unkno wn) date) unknown) (unknown) (no (unknown) (unknown) Is anxious (units (unk nown) date) appearing unknown) (unknown) (no (unknown) (unknown) [facility] (units (unknown) date) [address] [place] [address] Street unknown) [place] [address] (unknown) (no (unknown) (unknown) Lab Data (units (unkno wn) date) unknown) (unknown) (no (unknown) (unknown) Lab Results (units (un known) date) unknown) (unknown) (no (unknown) (unknown) Lab results (units (un known) date) reviewed: Yes I unknown) reviewed the patient's lab results. (unknown) (no (unknown) (unknown) Labs: (units (unkno wn) date) unknown) (unknown) (no (unknown) (unknown) Last Admin: (units (un known) date) 07/31/22 12:59 unknown) Dose: 1 mg (unknown) (no (unknown) (unknown) Last Admin: (units (un known) date) 07/31/22 12:59 unknown) Dose: 260 mg (unknown) (no (unknown) (unknown) Last Admin: (units (un known) date) 07/31/22 13:00 unknown) Dose: 1 tab (unknown) (no (unknown) (unknown) Last Admin: (units (un known) date) 07/31/22 17:20 unknown) Dose: 1 mg (unknown) (no (unknown) (unknown) Last Infusion: (units (unknown) date) 07/31/22 13:23 unknown) Dose: 0 mls/hr (unknown) (no (unknown) (unknown) Lipase (23-300) (units (unknown) date) U/L unknown) (unknown) (no (unknown) (unknown) Lipase 366 H (units (u nknown) date) (23-300) U/L unknown) (unknown) (no (unknown) (unknown) Lipase Stat (units (un known) date) unknown) (unknown) (no (unknown) (unknown) Lorazepam (units (unkn own) date) (Lorazepam 2 Mg/Ml unknown) Inj) 1 mg IV NOW ONE (unknown) (no (unknown) (unknown) Lymph # (Auto) (units (unknown) date) (6531-4413) /uL unknown) (unknown) (no (unknown) (unknown) Lymph # (Auto) (units (unknown) date) 1200 (3830-7413) unknown) /uL (unknown) (no (unknown) (unknown) Lymph % (Auto) (units (unknown) date) (25-40) % unknown) (unknown) (no (unknown) (unknown) Lymph % (Auto) (units (unknown) date) 27.8 (25-40) % unknown) (unknown) (no (unknown) (unknown) MCH (26-34) PG (units (unknown) date) unknown) (unknown) (no (unknown) (unknown) MCH 26.4 (26-34) (units (unknown) date) PG unknown) (unknown) (no (unknown) (unknown) MCHC (30-36) % (units (unknown) date) unknown) (unknown) (no (unknown) (unknown) MCHC 32.8 (30-36) (units (unknown) date) % unknown) (unknown) (no (unknown) (unknown) MCV (80-100) fL (units (unknown) date) unknown) (unknown) (no (unknown) (unknown) MCV 80.4 (80-100) (units (unknown) date) fL unknown) (unknown) (no (unknown) (unknown) MDM Narrative (units ( unknown) date) unknown) (unknown) (no (unknown) (unknown) Medical Decision (units (unknown) date) Making unknown) (unknown) (no (unknown) (unknown) Medical History (units (unknown) date) (Reviewed 07/31/22 unknown) @ 14:40 by Will Benitez DO) (unknown) (no (unknown) (unknown) Medical Records (units (unknown) date) unknown) (unknown) (no (unknown) (unknown) Medical decision (units (unknown) date) making narrative: unknown) (unknown) (no (unknown) (unknown) Medical records (units (unknown) date) reviewed: Yes I unknown) reviewed the patient's medical records. (unknown) (no (unknown) (unknown) Medication (units (unk nown) date) Instructions unknown) Recorded Confirmed (unknown) (no (unknown) (unknown) Medication (units (unk nown) date) Instructions unknown) Recorded (unknown) (no (unknown) (unknown) Menometrorrhagia (units (unknown) date) unknown) (unknown) (no (unknown) (unknown) Mode of arrival: (units (unknown) date) Ambulatory unknown) (unknown) (no (unknown) (unknown) Yates # (Auto) (units ( unknown) date) (0-900) /uL unknown) (unknown) (no (unknown) (unknown) Yates # (Auto) 300 (units (unknown) date) (0-900) /uL unknown) (unknown) (no (unknown) (unknown) Yates % (Auto) (units ( unknown) date) (3-14) % unknown) (unknown) (no (unknown) (unknown) Yates % (Auto) 7.9 (units (unknown) date) (3-14) % unknown) (unknown) (no (unknown) (unknown) Mother Diabetes (units (unknown) date) mellitus unknown) (unknown) (no (unknown) (unknown) Multivitamins (units ( unknown) date) (Multivitamin 1 unknown) Tablet) 1 tab PO DAILY SANDY (unknown) (no (unknown) (unknown) Neuro (units (unkno wn) date) unknown) (unknown) (no (unknown) (unknown) Neut # (Auto) (units ( unknown) date) (4589-2388) /uL unknown) (unknown) (no (unknown) (unknown) Neut # (Auto) 2600 (units (unknown) date) (4622-0509) /uL unknown) (unknown) (no (unknown) (unknown) Neut % (Auto) (units ( unknown) date) (50-75) % unknown) (unknown) (no (unknown) (unknown) Neut % (Auto) 60.0 (units (unknown) date) (50-75) % unknown) (unknown) (no (unknown) (unknown) No Action (units (unkn own) date) unknown) (unknown) (no (unknown) (unknown) Obesity (units (unkno wn) date) unknown) (unknown) (no (unknown) (unknown) Ordered: (units (unkno wn) date) unknown) (unknown) (no (unknown) (unknown) Orders (units (unkno wn) date) unknown) (unknown) (no (unknown) (unknown) Other: (units (unkno wn) date) unknown) (unknown) (no (unknown) (unknown) Overweight (units (unk nown) date) unknown) (unknown) (no (unknown) (unknown) Oxygen Delivery (units (unknown) date) Method Room Air unknown) 07/31/22 12:30 (unknown) (no (unknown) (unknown) Oxygen Delivery (units (unknown) date) Method Room Air unknown) (unknown) (no (unknown) (unknown) Oxygen Delivery (units (unknown) date) Method unknown) (unknown) (no (unknown) (unknown) Patient History (units (unknown) date) unknown) (unknown) (no (unknown) (unknown) Patient is a (units (u nknown) date) 31-year-old female. unknown) Has a history of alcohol use disorder. Has (unknown) (no (unknown) (unknown) Patient is alert (units (unknown) date) oriented. Has unknown) tremors. No seizure activity. Moves all 4 (unknown) (no (unknown) (unknown) Patient states (units (unknown) date) that her last drink unknown) was on Saturday which would have been 4 days (unknown) (no (unknown) (unknown) Patient: (units (unkno wn) date) Sarah Connors R unknown) MR#: M (unknown) (no (unknown) (unknown) Phenobarbital (units ( unknown) date) (Phenobarbital 65 unknown) Mg/Ml Vial) 260 mg IV NOW ONE (unknown) (no (unknown) (unknown) Plt Count (units (unkn own) date) (150-400) X103/uL unknown) (unknown) (no (unknown) (unknown) Plt Count 229 (units ( unknown) date) (150-400) X103/uL unknown) (unknown) (no (unknown) (unknown) Point of Care (units ( unknown) date) Testing unknown) (unknown) (no (unknown) (unknown) Point of care (units ( unknown) date) testing: unknown) (unknown) (no (unknown) (unknown) Potassium (units (unkn own) date) (3.4-5.1) mmol/L unknown) (unknown) (no (unknown) (unknown) Potassium 3.8 (units ( unknown) date) (3.4-5.1) mmol/L unknown) (unknown) (no (unknown) (unknown) Test (units (unknown) date) Results Negative unknown) (unknown) (no (unknown) (unknown) Test (units (unknown) date) Serum,Qual Stat unknown) (unknown) (no (unknown) (unknown) Prescriptions: (units (unknown) date) unknown) (unknown) (no (unknown) (unknown) Previous Rx's (units ( unknown) date) unknown) (unknown) (no (unknown) (unknown) Psych (units (unkno wn) date) unknown) (unknown) (no (unknown) (unknown) Pulse Oximetry 100 (units (unknown) date) 07/31/22 12:30 unknown) (unknown) (no (unknown) (unknown) Pulse Oximetry 100 (units (unknown) date) 100 99 unknown) (unknown) (no (unknown) (unknown) Pulse Oximetry 100 (units (unknown) date) 93 100 unknown) (unknown) (no (unknown) (unknown) Pulse Oximetry 100 (units (unknown) date) 94 unknown) (unknown) (no (unknown) (unknown) Pulse Oximetry 100 (units (unknown) date) 99 unknown) (unknown) (no (unknown) (unknown) Pulse Oximetry 100 (units (unknown) date) unknown) (unknown) (no (unknown) (unknown) Pulse Oximetry 94 (units (unknown) date) unknown) (unknown) (no (unknown) (unknown) Pulse Oximetry 96 (units (unknown) date) 97 unknown) (unknown) (no (unknown) (unknown) Pulse Oximetry 96 (units (unknown) date) unknown) (unknown) (no (unknown) (unknown) Pulse Oximetry 98 (units (unknown) date) 99 unknown) (unknown) (no (unknown) (unknown) Pulse Oximetry 99 (units (unknown) date) 100 100 unknown) (unknown) (no (unknown) (unknown) Pulse Oximetry 99 (units (unknown) date) 98 unknown) (unknown) (no (unknown) (unknown) Pulse Oximetry 99 (units (unknown) date) 99 unknown) (unknown) (no (unknown) (unknown) Pulse Oximetry 99 (units (unknown) date) unknown) (unknown) (no (unknown) (unknown) Pulse Oximetry (units (unknown) date) unknown) (unknown) (no (unknown) (unknown) Pulse Rate 62 64 (units (unknown) date) unknown) (unknown) (no (unknown) (unknown) Pulse Rate 62 (units ( unknown) date) unknown) (unknown) (no (unknown) (unknown) Pulse Rate 63 60 (units (unknown) date) unknown) (unknown) (no (unknown) (unknown) Pulse Rate 63 65 (units (unknown) date) unknown) (unknown) (no (unknown) (unknown) Pulse Rate 64 62 (units (unknown) date) unknown) (unknown) (no (unknown) (unknown) Pulse Rate 64 73 (units (unknown) date) unknown) (unknown) (no (unknown) (unknown) Pulse Rate 64 (units ( unknown) date) unknown) (unknown) (no (unknown) (unknown) Pulse Rate 65 66 (units (unknown) date) 66 unknown) (unknown) (no (unknown) (unknown) Pulse Rate 65 75 (units (unknown) date) unknown) (unknown) (no (unknown) (unknown) Pulse Rate 66 66 (units (unknown) date) 67 unknown) (unknown) (no (unknown) (unknown) Pulse Rate 66 (units ( unknown) date) unknown) (unknown) (no (unknown) (unknown) Pulse Rate 67 65 (units (unknown) date) unknown) (unknown) (no (unknown) (unknown) Pulse Rate 67 72 (units (unknown) date) unknown) (unknown) (no (unknown) (unknown) Pulse Rate 68 (units ( unknown) date) 07/31/22 12:30 unknown) (unknown) (no (unknown) (unknown) Pulse Rate 68 66 (units (unknown) date) 66 unknown) (unknown) (no (unknown) (unknown) Pulse Rate 69 (units ( unknown) date) unknown) (unknown) (no (unknown) (unknown) Pulse Rate 71 (units ( unknown) date) unknown) (unknown) (no (unknown) (unknown) Pulse Rate 72 (units ( unknown) date) unknown) (unknown) (no (unknown) (unknown) RBC (4.0-5.2) (units ( unknown) date) X106/uL unknown) (unknown) (no (unknown) (unknown) RBC 4.02 (4.0-5.2) (units (unknown) date) X106/uL unknown) (unknown) (no (unknown) (unknown) RDW (11.6-14.8) % (units (unknown) date) unknown) (unknown) (no (unknown) (unknown) RDW 19.5 H (units (unk nown) date) (11.6-14.8) % unknown) (unknown) (no (unknown) (unknown) ROS Unobtainable: (units (unknown) date) All systems unknown) reviewed + are unremarkable except as noted in HPI (unknown) (no (unknown) (unknown) Rate: regular rate (units (unknown) date) unknown) (unknown) (no (unknown) (unknown) Referrals: (units (unk nown) date) unknown) (unknown) (no (unknown) (unknown) Related Data (units (u nknown) date) unknown) (unknown) (no (unknown) (unknown) Resp (units (unkno wn) date) unknown) (unknown) (no (unknown) (unknown) Respiratory Rate (units (unknown) date) 17 07/31/22 12:30 unknown) (unknown) (no (unknown) (unknown) Respiratory Rate (units (unknown) date) 17 30 H 29 H unknown) (unknown) (no (unknown) (unknown) Respiratory Rate (units (unknown) date) 20 18 unknown) (unknown) (no (unknown) (unknown) Respiratory Rate (units (unknown) date) 20 32 H 21 unknown) (unknown) (no (unknown) (unknown) Respiratory Rate (units (unknown) date) 21 20 unknown) (unknown) (no (unknown) (unknown) Respiratory Rate (units (unknown) date) 22 unknown) (unknown) (no (unknown) (unknown) Respiratory Rate (units (unknown) date) 23 18 unknown) (unknown) (no (unknown) (unknown) Respiratory Rate (units (unknown) date) 23 24 unknown) (unknown) (no (unknown) (unknown) Respiratory Rate (units (unknown) date) 23 unknown) (unknown) (no (unknown) (unknown) Respiratory Rate (units (unknown) date) 25 H unknown) (unknown) (no (unknown) (unknown) Respiratory Rate (units (unknown) date) 26 H 17 unknown) (unknown) (no (unknown) (unknown) Respiratory Rate (units (unknown) date) 26 H unknown) (unknown) (no (unknown) (unknown) Respiratory Rate (units (unknown) date) 27 H unknown) (unknown) (no (unknown) (unknown) Respiratory Rate (units (unknown) date) 29 H 36 H 34 H unknown) (unknown) (no (unknown) (unknown) Respiratory Rate (units (unknown) date) 29 H 38 H unknown) (unknown) (no (unknown) (unknown) Respiratory Rate (units (unknown) date) 31 H unknown) (unknown) (no (unknown) (unknown) Respiratory Rate (units (unknown) date) 32 H unknown) (unknown) (no (unknown) (unknown) Respiratory Rate (units (unknown) date) 33 H unknown) (unknown) (no (unknown) (unknown) Respiratory Rate (units (unknown) date) 34 H unknown) (unknown) (no (unknown) (unknown) Review of Systems (units (unknown) date) unknown) (unknown) (no (unknown) (unknown) Rhythm: regular (units (unknown) date) rhythm unknown) (unknown) (no (unknown) (unknown) S/P myringotomy (units (unknown) date) with insertion of unknown) tube (unknown) (no (unknown) (unknown) (spontaneous (units (unknown) date) vaginal delivery) unknown) (09/05/18) (unknown) (no (unknown) (unknown) Serum , (units (unknown) date) Qual (Negative) unknown) (unknown) (no (unknown) (unknown) Serum , (units (unknown) date) Qual Negative unknown) (Negative) (unknown) (no (unknown) (unknown) Signed By: (units (unk nown) date) unknown) (unknown) (no (unknown) (unknown) Skin (units (unkno wn) date) unknown) (unknown) (no (unknown) (unknown) Smoker (units (unkno wn) date) unknown) (unknown) (no (unknown) (unknown) Smoking Status: (units (unknown) date) Former smoker unknown) (unknown) (no (unknown) (unknown) Social History (units (unknown) date) (Reviewed 07/31/22 unknown) @ 14:40 by Will Benitez DO) (unknown) (no (unknown) (unknown) Sodium (137-145) (units (unknown) date) mmol/L unknown) (unknown) (no (unknown) (unknown) Sodium 137 (units (unk nown) date) (137-145) mmol/L unknown) (unknown) (no (unknown) (unknown) Source: patient (units (unknown) date) unknown) (unknown) (no (unknown) (unknown) Stated complaint: (units (unknown) date) SOB, tremors unknown) (unknown) (no (unknown) (unknown) Stop: 07/31/22 (units (unknown) date) 12:36 unknown) (unknown) (no (unknown) (unknown) Stop: 07/31/22 (units (unknown) date) 15:18 unknown) (unknown) (no (unknown) (unknown) Substance Use (units ( unknown) date) Type: does not use unknown) (unknown) (no (unknown) (unknown) Surgical History (units (unknown) date) (Reviewed 07/13/22 unknown) @ 06:49 by LYUDMILA Borden) (unknown) (no (unknown) (unknown) Temperature 97.7 F (units (unknown) date) 07/31/22 12:30 unknown) (unknown) (no (unknown) (unknown) Temperature 97.7 F (units (unknown) date) unknown) (unknown) (no (unknown) (unknown) Temperature (units (un known) date) unknown) (unknown) (no (unknown) (unknown) Thiamine HCl 200 (units (unknown) date) mg/ Sodium unknown) (Chloride) 102 mls @ 408 mls/hr IV DAILY SANDY (unknown) (no (unknown) (unknown) Time Seen by (units (u nknown) date) Provider: 07/31/22 unknown) 12:35 (unknown) (no (unknown) (unknown) Total Bilirubin (units (unknown) date) (0.2-1.3) mg/dL unknown) (unknown) (no (unknown) (unknown) Total Bilirubin (units (unknown) date) 0.8 (0.2-1.3) mg/dL unknown) (unknown) (no (unknown) (unknown) Total Protein (units ( unknown) date) (6.3-8.2) g/dL unknown) (unknown) (no (unknown) (unknown) Total Protein 7.2 (units (unknown) date) (6.3-8.2) g/dL unknown) (unknown) (no (unknown) (unknown) U Benzodiazepines (units (unknown) date) Scrn (Negative) unknown) (unknown) (no (unknown) (unknown) U Benzodiazepines (units (unknown) date) Scrn Positive H unknown) (Negative) (unknown) (no (unknown) (unknown) U Marijuana (THC) (units (unknown) date) Screen (Negative) unknown) (unknown) (no (unknown) (unknown) U Marijuana (THC) (units (unknown) date) Screen Negative unknown) (Negative) (unknown) (no (unknown) (unknown) U Methamphetamines (units (unknown) date) Scrn (Negative) unknown) (unknown) (no (unknown) (unknown) U Methamphetamines (units (unknown) date) Scrn Negative unknown) (Negative) (unknown) (no (unknown) (unknown) U Opiates 300ng/mL (units (unknown) date) cut (Negative) unknown) (unknown) (no (unknown) (unknown) U Opiates 300ng/mL (units (unknown) date) cut Negative unknown) (Negative) (unknown) (no (unknown) (unknown) U Tricyclic (units (un known) date) Antidepress unknown) (Negative) (unknown) (no (unknown) (unknown) U Tricyclic (units (un known) date) Antidepress unknown) Positive H (Negative) (unknown) (no (unknown) (unknown) Ur Amphetamines (units (unknown) date) Screen (Negative) unknown) (unknown) (no (unknown) (unknown) Ur Amphetamines (units (unknown) date) Screen Negative unknown) (Negative) (unknown) (no (unknown) (unknown) Ur Barbiturates (units (unknown) date) Screen (Negative) unknown) (unknown) (no (unknown) (unknown) Ur Barbiturates (units (unknown) date) Screen Positive H unknown) (Negative) (unknown) (no (unknown) (unknown) Ur Bilirubin (units (u nknown) date) Confirm (Negative) unknown) (unknown) (no (unknown) (unknown) Ur Bilirubin (units (u nknown) date) Confirm Negative unknown) (Negative) (unknown) (no (unknown) (unknown) Ur Culture (units (unk nown) date) Indicated? Cult not unknown) indicated (unknown) (no (unknown) (unknown) Ur Culture (units (unk nown) date) Indicated? unknown) (unknown) (no (unknown) (unknown) Ur Leukocyte (units (u nknown) date) Esterase (NEGATIVE) unknown) (unknown) (no (unknown) (unknown) Ur Leukocyte (units (u nknown) date) Esterase Negative unknown) (NEGATIVE) (unknown) (no (unknown) (unknown) Ur MDMA Scrn (units (u nknown) date) (Ecstasy) unknown) (Negative) (unknown) (no (unknown) (unknown) Ur MDMA Scrn (units (u nknown) date) (Ecstasy) Negative unknown) (Negative) (unknown) (no (unknown) (unknown) Ur Oxycodone (units (u nknown) date) Screen (Negative) unknown) (unknown) (no (unknown) (unknown) Ur Oxycodone (units (u nknown) date) Screen Negative unknown) (Negative) (unknown) (no (unknown) (unknown) Ur Phencyclidine (units (unknown) date) Scrn (Negative) unknown) (unknown) (no (unknown) (unknown) Ur Phencyclidine (units (unknown) date) Scrn Negative unknown) (Negative) (unknown) (no (unknown) (unknown) Ur Specific (units (un known) date) [place] >=1.030 H unknown) (1.000-1.035) (unknown) (no (unknown) (unknown) Ur Specific (units (un known) date) [place] unknown) (1.000-1.035) (unknown) (no (unknown) (unknown) Ur Squamous Epith (units (unknown) date) Cells (0-5/HPF) unknown) (unknown) (no (unknown) (unknown) Ur Squamous Epith (units (unknown) date) Cells 5-10 /hpf H unknown) (0-5/HPF) (unknown) (no (unknown) (unknown) Urinalysis and (units (unknown) date) Microscopic Stat unknown) (unknown) (no (unknown) (unknown) Urine Appearance (units (unknown) date) Sl cloudy unknown) (unknown) (no (unknown) (unknown) Urine Appearance (units (unknown) date) unknown) (unknown) (no (unknown) (unknown) Urine Bacteria (units (unknown) date) (None) unknown) (unknown) (no (unknown) (unknown) Urine Bacteria (units (unknown) date) None seen (None) unknown) (unknown) (no (unknown) (unknown) Urine Bilirubin (units (unknown) date) (NEGATIVE) unknown) (unknown) (no (unknown) (unknown) Urine Bilirubin 1+ (units (unknown) date) H D (NEGATIVE) unknown) (unknown) (no (unknown) (unknown) Urine Cocaine (units ( unknown) date) Screen (Negative) unknown) (unknown) (no (unknown) (unknown) Urine Cocaine (units ( unknown) date) Screen Negative unknown) (Negative) (unknown) (no (unknown) (unknown) Urine Color Yellow (units (unknown) date) unknown) (unknown) (no (unknown) (unknown) Urine Color (units (un known) date) unknown) (unknown) (no (unknown) (unknown) Urine Dip (units (unkn own) date) unknown) (unknown) (no (unknown) (unknown) Urine Drug Screen, (units (unknown) date) Rapid Stat unknown) (unknown) (no (unknown) (unknown) Urine Glucose (UA) (units (unknown) date) (Negative) g/dL unknown) (unknown) (no (unknown) (unknown) Urine Glucose (UA) (units (unknown) date) Negative (Negative) unknown) g/dL (unknown) (no (unknown) (unknown) Urine Ketones (units ( unknown) date) (NEGATIVE) unknown) (unknown) (no (unknown) (unknown) Urine Ketones 1+ H (units (unknown) date) (NEGATIVE) unknown) (unknown) (no (unknown) (unknown) Urine Methadone (units (unknown) date) Screen (Negative) unknown) (unknown) (no (unknown) (unknown) Urine Methadone (units (unknown) date) Screen Negative unknown) (Negative) (unknown) (no (unknown) (unknown) Urine Nitrate (units ( unknown) date) (Negative) unknown) (unknown) (no (unknown) (unknown) Urine Nitrate (units ( unknown) date) Negative (Negative) unknown) (unknown) (no (unknown) (unknown) Urine Occult Blood (units (unknown) date) (Negative) unknown) (unknown) (no (unknown) (unknown) Urine Occult Blood (units (unknown) date) Negative (Negative) unknown) (unknown) (no (unknown) (unknown) Urine Protein (units ( unknown) date) (Negative) unknown) (unknown) (no (unknown) (unknown) Urine Protein (units ( unknown) date) Trace H (Negative) unknown) (unknown) (no (unknown) (unknown) Urine RBC (units (unkn own) date) (0-5/HPF) unknown) (unknown) (no (unknown) (unknown) Urine RBC None (units (unknown) date) seen (0-5/HPF) unknown) (unknown) (no (unknown) (unknown) Urine Specific (units (unknown) date) [place] 1.030 unknown) (unknown) (no (unknown) (unknown) Urine Urobilinogen (units (unknown) date) (0.2) E.U./dL unknown) (unknown) (no (unknown) (unknown) Urine Urobilinogen (units (unknown) date) 0.2 (0.2) E.U./dL unknown) (unknown) (no (unknown) (unknown) Urine WBC (units (unkn own) date) (0-5/HPF) unknown) (unknown) (no (unknown) (unknown) Urine WBC None (units (unknown) date) seen (0-5/HPF) unknown) (unknown) (no (unknown) (unknown) Urine pH (4.5-8.0) (units (unknown) date) unknown) (unknown) (no (unknown) (unknown) Urine pH 6.0 (units (u nknown) date) (4.5-8.0) unknown) (unknown) (no (unknown) (unknown) Vital Signs - 8 hr (units (unknown) date) unknown) (unknown) (no (unknown) (unknown) Vital Signs (units (un known) date) unknown) (unknown) (no (unknown) (unknown) Vital signs: (units (u nknown) date) unknown) (unknown) (no (unknown) (unknown) WBC (4.5-11.0) (units (unknown) date) X103/uL unknown) (unknown) (no (unknown) (unknown) WBC 4.4 L (units (unkn own) date) (4.5-11.0) X103/uL unknown) (unknown) (no (unknown) (unknown) [Embedded Image (units (unknown) date) Not Available] unknown) (unknown) (no (unknown) (unknown) [METOCLOPRAMIDE] (units (unknown) date) unknown) (unknown) (no (unknown) (unknown) ago. Today she is (units (unknown) date) alert oriented x3. unknown) Is not clinically intoxicated. Her (unknown) (no (unknown) (unknown) alcohol intake (units (unknown) date) frequency: 3 or unknown) more drinks per day (unknown) (no (unknown) (unknown) alcohol intake: (units (unknown) date) former unknown) (unknown) (no (unknown) (unknown) alcohol level is (units (unknown) date) 0. In my opinion unknown) does have the capacity to make decisions. (unknown) (no (unknown) (unknown) and below (units (unkn own) date) unknown) (unknown) (no (unknown) (unknown) current (units (unkno wn) date) occupational unknown) exposures/hazards: Yes (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 with Pandemic ) (unknown) (no (unknown) (unknown) department for (units (unknown) date) alcohol withdrawal. unknown) She states that after she was discharged she (unknown) (no (unknown) (unknown) drink was on (units (u nknown) date) Saturday. She states unknown) that since she is stopped drinking she has had (unknown) (no (unknown) (unknown) education level: (units (unknown) date) college unknown) (unknown) (no (unknown) (unknown) extremities. Is (units (unknown) date) ambulatory. unknown) (unknown) (no (unknown) (unknown) renee/zoroastrianism: (units (unknown) date) Buddhist unknown) (unknown) (no (unknown) (unknown) fluoxetine 10 mg (units (unknown) date) capsule 10 mg PO unknown) DAILY 07/13/22 07/13/22 (unknown) (no (unknown) (unknown) fluoxetine 10 mg (units (unknown) date) capsule unknown) (unknown) (no (unknown) (unknown) household members: (units (unknown) date) children unknown) (unknown) (no (unknown) (unknown) hydrocodone (units (un known) date) [HYDROCODONE] unknown) AdvReac Unknown VOMITING Verified 07/12/22 16:18 (unknown) (no (unknown) (unknown) hydroxyzine HCl 50 (units (unknown) date) mg tablet 50 mg PO unknown) DAILY 07/13/22 07/13/22 (unknown) (no (unknown) (unknown) hydroxyzine HCl 50 (units (unknown) date) mg tablet unknown) (unknown) (no (unknown) (unknown) marital status: (units (unknown) date) unknown) (unknown) (no (unknown) (unknown) mcg tablet (units (unk nown) date) (Tab-A-Kael) unknown) (unknown) (no (unknown) (unknown) metoclopramide (units (unknown) date) Allergy Mild unknown) RASH/HIVES Verified 07/12/22 16:18 (unknown) (no (unknown) (unknown) mg tablet (units (unkn own) date) unknown) (unknown) (no (unknown) (unknown) multivitamin with (units (unknown) date) folic acid 400 1 unknown) tab PO DAILY #30 tabs 07/14/22 (unknown) (no (unknown) (unknown) multivitamin with (units (unknown) date) folic acid unknown) [Tab-A-Kael] 400 mcg Tablet (unknown) (no (unknown) (unknown) number of (units (unkn own) date) children: 1 unknown) (unknown) (no (unknown) (unknown) occupational (units (u nknown) date) status: employed unknown) (unknown) (no (unknown) (unknown) pantoprazole 40 mg (units (unknown) date) Tablet,Delayed unknown) Release (Dr/Ec) (unknown) (no (unknown) (unknown) pantoprazole 40 mg (units (unknown) date) tablet,delayed 40 unknown) mg PO 0700 #30 tabs 07/14/22 (unknown) (no (unknown) (unknown) past. At the (units (u nknown) date) beginning of the unknown) month and an extended stay here in the emergency (unknown) (no (unknown) (unknown) quetiapine 300 mg (units (unknown) date) tablet 300 mg PO unknown) DAILY 07/13/22 07/13/22 (unknown) (no (unknown) (unknown) quetiapine 300 mg (units (unknown) date) tablet unknown) (unknown) (no (unknown) (unknown) release (units (unkno wn) date) unknown) (unknown) (no (unknown) (unknown) second hand (units (un known) date) exposure: No unknown) (growing up as a child - not currently) (unknown) (no (unknown) (unknown) shaking and nausea (units (unknown) date) and shortness of unknown) breath and tremors and generally not feeling (unknown) (no (unknown) (unknown) special renee (units ( unknown) date) needs: No unknown) (unknown) (no (unknown) (unknown) substance use (units ( unknown) date) type: does not use unknown) (unknown) (no (unknown) (unknown) thiamine (units (unkno wn) date) mononitrate (vit unknown) B1) 100 100 mg PO DAILY #30 tabs 07/14/22 (unknown) (no (unknown) (unknown) thiamine (units (unkno wn) date) mononitrate (vit unknown) B1) 100 mg Tablet (unknown) (no (unknown) (unknown) very well. No (units ( unknown) date) seizure-like unknown) activity. She denies any other ingestions. (unknown) (no (unknown) (unknown) went back to (units (u nknown) date) drinking and went unknown) on a [place] ?this was a couple days. Her last (unknown) (no (unknown) (unknown) withdrawn from (units (unknown) date) alcohol in the unknown) past. She states she is had a seizure in the Result panel 2400 (unknown) (no (unknown) (unknown) (no value) (units (unk nown) date) unknown) (unknown) (no (unknown) (unknown) <Electronically (units (unknown) date) signed by Will Benitez D.O.> (unknown) (no (unknown) (unknown) [id number] (units (unkn own) date) unknown) (unknown) (no (unknown) (unknown) 07/31/22 07/31/22 (units (unknown) date) 07/31/22 unknown) Range/Units (unknown) (no (unknown) (unknown) 07/31/22 12:40 (units (unknown) date) unknown) (unknown) (no (unknown) (unknown) 07/31/22 13:41 (units (unknown) date) unknown) (unknown) (no (unknown) (unknown) 07/31/22 1733 (units ( unknown) date) unknown) (unknown) (no (unknown) (unknown) 07/31/22 (units (unkno wn) date) Range/Units unknown) (unknown) (no (unknown) (unknown) 07/31/22 (units (unkno wn) date) unknown) (unknown) (no (unknown) (unknown) 1 tab PO DAILY (units (unknown) date) Qty: 30 0RF unknown) (unknown) (no (unknown) (unknown) 10 mg PO DAILY (units (unknown) date) unknown) (unknown) (no (unknown) (unknown) 100 mg PO DAILY (units (unknown) date) Qty: 30 0RF unknown) (unknown) (no (unknown) (unknown) 12:30 07/31/22 (units (unknown) date) unknown) (unknown) (no (unknown) (unknown) 12:40 12:40 12:40 (units (unknown) date) unknown) (unknown) (no (unknown) (unknown) 12:40 13:41 13:41 (units (unknown) date) unknown) (unknown) (no (unknown) (unknown) 12:44 07/31/22 (units (unknown) date) unknown) (unknown) (no (unknown) (unknown) 12:46 07/31/22 (units (unknown) date) unknown) (unknown) (no (unknown) (unknown) 12:46 (units (unkno wn) date) unknown) (unknown) (no (unknown) (unknown) 13:00 07/31/22 (units (unknown) date) unknown) (unknown) (no (unknown) (unknown) 13:00 (units (unkno wn) date) unknown) (unknown) (no (unknown) (unknown) 13:08 07/31/22 (units (unknown) date) unknown) (unknown) (no (unknown) (unknown) 13:13 07/31/22 (units (unknown) date) unknown) (unknown) (no (unknown) (unknown) 13:13 (units (unkno wn) date) unknown) (unknown) (no (unknown) (unknown) 13:16 07/31/22 (units (unknown) date) unknown) (unknown) (no (unknown) (unknown) 13:16 (units (unkno wn) date) unknown) (unknown) (no (unknown) (unknown) 13:20 07/31/22 (units (unknown) date) unknown) (unknown) (no (unknown) (unknown) 13:26 07/31/22 (units (unknown) date) unknown) (unknown) (no (unknown) (unknown) 13:26 (units (unkno wn) date) unknown) (unknown) (no (unknown) (unknown) 13:30 07/31/22 (units (unknown) date) unknown) (unknown) (no (unknown) (unknown) 13:41 (units (unkno wn) date) unknown) (unknown) (no (unknown) (unknown) 14:00 (units (unkno wn) date) unknown) (unknown) (no (unknown) (unknown) 14:30 07/31/22 (units (unknown) date) unknown) (unknown) (no (unknown) (unknown) 15:00 07/31/22 (units (unknown) date) unknown) (unknown) (no (unknown) (unknown) 15:01 07/31/22 (units (unknown) date) unknown) (unknown) (no (unknown) (unknown) 15:01 (units (unkno wn) date) unknown) (unknown) (no (unknown) (unknown) 15:06 07/31/22 (units (unknown) date) unknown) (unknown) (no (unknown) (unknown) 15:06 (units (unkno wn) date) unknown) (unknown) (no (unknown) (unknown) 15:11 07/31/22 (units (unknown) date) unknown) (unknown) (no (unknown) (unknown) 15:16 07/31/22 (units (unknown) date) unknown) (unknown) (no (unknown) (unknown) 15:16 (units (unkno wn) date) unknown) (unknown) (no (unknown) (unknown) 15:20 07/31/22 (units (unknown) date) unknown) (unknown) (no (unknown) (unknown) 15:20 (units (unkno wn) date) unknown) (unknown) (no (unknown) (unknown) 15:30 07/31/22 (units (unknown) date) unknown) (unknown) (no (unknown) (unknown) 15:35 07/31/22 (units (unknown) date) unknown) (unknown) (no (unknown) (unknown) 15:35 (units (unkno wn) date) unknown) (unknown) (no (unknown) (unknown) 15:45 07/31/22 (units (unknown) date) unknown) (unknown) (no (unknown) (unknown) 16:00 07/31/22 (units (unknown) date) unknown) (unknown) (no (unknown) (unknown) 16:00 (units (unkno wn) date) unknown) (unknown) (no (unknown) (unknown) 16:05 07/31/22 (units (unknown) date) unknown) (unknown) (no (unknown) (unknown) 16:05 (units (unkno wn) date) unknown) (unknown) (no (unknown) (unknown) 16:10 07/31/22 (units (unknown) date) unknown) (unknown) (no (unknown) (unknown) 16:15 07/31/22 (units (unknown) date) unknown) (unknown) (no (unknown) (unknown) 16:15 (units (unkno wn) date) unknown) (unknown) (no (unknown) (unknown) 16:21 07/31/22 (units (unknown) date) unknown) (unknown) (no (unknown) (unknown) 16:21 (units (unkno wn) date) unknown) (unknown) (no (unknown) (unknown) 16:26 07/31/22 (units (unknown) date) unknown) (unknown) (no (unknown) (unknown) 16:30 (units (unkno wn) date) unknown) (unknown) (no (unknown) (unknown) 16:31 07/31/22 (units (unknown) date) unknown) (unknown) (no (unknown) (unknown) 16:35 07/31/22 (units (unknown) date) unknown) (unknown) (no (unknown) (unknown) 16:35 (units (unkno wn) date) unknown) (unknown) (no (unknown) (unknown) 16:46 07/31/22 (units (unknown) date) unknown) (unknown) (no (unknown) (unknown) 16:46 (units (unkno wn) date) unknown) (unknown) (no (unknown) (unknown) 16:51 07/31/22 (units (unknown) date) unknown) (unknown) (no (unknown) (unknown) 17:00 (units (unkno wn) date) unknown) (unknown) (no (unknown) (unknown) 17:11 07/31/22 (units (unknown) date) unknown) (unknown) (no (unknown) (unknown) 17:11 (units (unkno wn) date) unknown) (unknown) (no (unknown) (unknown) 300 mg PO DAILY (units (unknown) date) unknown) (unknown) (no (unknown) (unknown) 40 mg PO 0700 Qty: (units (unknown) date) 30 0RF unknown) (unknown) (no (unknown) (unknown) 50 mg PO DAILY (units (unknown) date) unknown) (unknown) (no (unknown) (unknown) ALT (<35) IU/L (units (unknown) date) unknown) (unknown) (no (unknown) (unknown) ALT 25 (<35) IU/L (units (unknown) date) unknown) (unknown) (no (unknown) (unknown) AST (14-36) IU/L (units (unknown) date) unknown) (unknown) (no (unknown) (unknown) AST 77 H (14-36) (units (unknown) date) IU/L unknown) (unknown) (no (unknown) (unknown) Activity (units (unkno wn) date) Restrictions/Additi unknown) onal Instructions: (unknown) (no (unknown) (unknown) Admin: 07/31/22 (units (unknown) date) 12:59 Dose: 408 unknown) mls/hr (unknown) (no (unknown) (unknown) After our (units (unkn own) date) discussions of the unknown) risks and benefits of being admitted to the (unknown) (no (unknown) (unknown) Age/Sex: 31 / F (units (unknown) date) unknown) (unknown) (no (unknown) (unknown) Albumin (3.5-5.0) (units (unknown) date) g/dL unknown) (unknown) (no (unknown) (unknown) Albumin 4.4 (units (un known) date) (3.5-5.0) g/dL unknown) (unknown) (no (unknown) (unknown) Albumin/Globulin (units (unknown) date) Ratio (1.0-2.8) unknown) (unknown) (no (unknown) (unknown) Albumin/Globulin (units (unknown) date) Ratio 1.6 (1.0-2.8) unknown) (unknown) (no (unknown) (unknown) Alcohol use (units (un known) date) disorder, Alcohol unknown) withdrawal (unknown) (no (unknown) (unknown) Alcohol withdrawal (units (unknown) date) delirium, acute, unknown) hyperactive (unknown) (no (unknown) (unknown) Alcoholism (units (unk nown) date) unknown) (unknown) (no (unknown) (unknown) Alkaline (units (unkno wn) date) Phosphatase unknown) (38-126) U/L (unknown) (no (unknown) (unknown) Alkaline (units (unkno wn) date) Phosphatase 76 unknown) (38-126) U/L (unknown) (no (unknown) (unknown) Allergies (units (unkn own) date) unknown) (unknown) (no (unknown) (unknown) Allergy/AdvReac (units (unknown) date) Type Severity unknown) Reaction Status Date / Time (unknown) (no (unknown) (unknown) Anemia (-2018) (units (unknown) date) unknown) (unknown) (no (unknown) (unknown) Auscultation: (units ( unknown) date) clear to unknown) auscultation bilaterally (unknown) (no (unknown) (unknown) BUN (7-17) mg/dL (units (unknown) date) unknown) (unknown) (no (unknown) (unknown) BUN 12 (7-17) (units ( unknown) date) mg/dL unknown) (unknown) (no (unknown) (unknown) BUN/Creatinine (units (unknown) date) Ratio (6-22) unknown) (unknown) (no (unknown) (unknown) BUN/Creatinine (units (unknown) date) Ratio 17.4 (6-22) unknown) (unknown) (no (unknown) (unknown) Baso # (Auto) (units ( unknown) date) (0-100) /uL unknown) (unknown) (no (unknown) (unknown) Baso # (Auto) 0 (units (unknown) date) (0-100) /uL unknown) (unknown) (no (unknown) (unknown) Baso % (Auto) (units ( unknown) date) (0-2) % unknown) (unknown) (no (unknown) (unknown) Baso % (Auto) 1.0 (units (unknown) date) (0-2) % unknown) (unknown) (no (unknown) (unknown) Bedside Urine (units ( unknown) date) Bilirubin + 1 unknown) (unknown) (no (unknown) (unknown) Bedside Urine (units ( unknown) date) Glucose Negative unknown) (unknown) (no (unknown) (unknown) Bedside Urine (units ( unknown) date) Ketone + 15 unknown) (unknown) (no (unknown) (unknown) Bedside Urine (units ( unknown) date) Leukocytes - unknown) Negative (unknown) (no (unknown) (unknown) Bedside Urine (units ( unknown) date) Nitrite - Negative unknown) (unknown) (no (unknown) (unknown) Bedside Urine (units ( unknown) date) Occult Blood - unknown) Negative (unknown) (no (unknown) (unknown) Bedside Urine (units ( unknown) date) Protein + 30 unknown) (unknown) (no (unknown) (unknown) Bedside Urine (units ( unknown) date) Urobilinogen - unknown) Negative (unknown) (no (unknown) (unknown) Bedside Urine pH (units (unknown) date) 6.0 unknown) (unknown) (no (unknown) (unknown) Blood Pressure (units (unknown) date) 111/63 110/61 unknown) (unknown) (no (unknown) (unknown) Blood Pressure (units (unknown) date) 111/70 unknown) (unknown) (no (unknown) (unknown) Blood Pressure (units (unknown) date) 112/65 unknown) (unknown) (no (unknown) (unknown) Blood Pressure (units (unknown) date) 113/59 L unknown) (unknown) (no (unknown) (unknown) Blood Pressure (units (unknown) date) 113/71 unknown) (unknown) (no (unknown) (unknown) Blood Pressure (units (unknown) date) 113/73 116/75 unknown) (unknown) (no (unknown) (unknown) Blood Pressure (units (unknown) date) 116/53 L 124/73 unknown) (unknown) (no (unknown) (unknown) Blood Pressure (units (unknown) date) 117/56 L unknown) (unknown) (no (unknown) (unknown) Blood Pressure (units (unknown) date) 118/69 116/81 unknown) (unknown) (no (unknown) (unknown) Blood Pressure (units (unknown) date) 119/61 unknown) (unknown) (no (unknown) (unknown) Blood Pressure (units (unknown) date) 120/75 unknown) (unknown) (no (unknown) (unknown) Blood Pressure (units (unknown) date) 120/78 163/104 H unknown) (unknown) (no (unknown) (unknown) Blood Pressure (units (unknown) date) 121/63 unknown) (unknown) (no (unknown) (unknown) Blood Pressure (units (unknown) date) 126/90 129/66 unknown) (unknown) (no (unknown) (unknown) Blood Pressure (units (unknown) date) 137/65 118/80 unknown) (unknown) (no (unknown) (unknown) Blood Pressure (units (unknown) date) 137/84 07/31/ unknown) 12:30 (unknown) (no (unknown) (unknown) Blood Pressure (units (unknown) date) 137/84 unknown) (unknown) (no (unknown) (unknown) Blood Pressure (units (unknown) date) 138/79 unknown) (unknown) (no (unknown) (unknown) Blood Pressure (units (unknown) date) 152/88 H 134/72 unknown) (unknown) (no (unknown) (unknown) Blood Pressure (units (unknown) date) unknown) (unknown) (no (unknown) (unknown) Calcium (8.4-10.2) (units (unknown) date) mg/dL unknown) (unknown) (no (unknown) (unknown) Calcium 8.7 (units (un known) date) (8.4-10.2) mg/dL unknown) (unknown) (no (unknown) (unknown) Carbon Dioxide (units (unknown) date) (22-32) mmol/L unknown) (unknown) (no (unknown) (unknown) Carbon Dioxide 24 (units (unknown) date) (22-32) mmol/L unknown) (unknown) (no (unknown) (unknown) Cardio (units (unkno wn) date) unknown) (unknown) (no (unknown) (unknown) Chief complaint: (units (unknown) date) Toxicology Problem unknown) (unknown) (no (unknown) (unknown) Chloride (98-107) (units (unknown) date) mmol/L unknown) (unknown) (no (unknown) (unknown) Chloride 105 (units (u nknown) date) (98-107) mmol/L unknown) (unknown) (no (unknown) (unknown) Clinical (units (unkno wn) date) Impression: unknown) (unknown) (no (unknown) (unknown) Complete Blood (units (unknown) date) Count AUTO DIFF unknown) Stat (unknown) (no (unknown) (unknown) Comprehensive (units ( unknown) date) Metabolic Panel unknown) Stat (unknown) (no (unknown) (unknown) Const (units (unkno wn) date) unknown) (unknown) (no (unknown) (unknown) Continue to take (units (unknown) date) all of your unknown) medications as directed. You can and should return (unknown) (no (unknown) (unknown) Course (units (unkno wn) date) unknown) (unknown) (no (unknown) (unknown) Creatinine (units (unk nown) date) (0.52-1.04) mg/dL unknown) (unknown) (no (unknown) (unknown) Creatinine 0.69 (units (unknown) date) (0.52-1.04) mg/dL unknown) (unknown) (no (unknown) (unknown) : 1990 (units (unknown) date) Acct:[id number] unknown) (unknown) (no (unknown) (unknown) Date of Service: (units (unknown) date) 07/31/22 unknown) (unknown) (no (unknown) (unknown) Departure (units (unkn own) date) unknown) (unknown) (no (unknown) (unknown) Discharge Plan (units (unknown) date) unknown) (unknown) (no (unknown) (unknown) Discontinued (units (u nknown) date) Medications unknown) (unknown) (no (unknown) (unknown) Documented By: OSCAR (units (unknown) date) unknown) (unknown) (no (unknown) (unknown) Documented By: GRADY (units (unknown) date) unknown) (unknown) (no (unknown) (unknown) ED Orders (units (unkn own) date) unknown) (unknown) (no (unknown) (unknown) ER Physician: (units ( unknown) date) Will Benitez D.O. unknown) (unknown) (no (unknown) (unknown) Effort + (units (unkno wn) date) Inspection: normal unknown) respiratory effort (unknown) (no (unknown) (unknown) Emergency Report (units (unknown) date) unknown) (unknown) (no (unknown) (unknown) Eos # (Auto) (units (u nknown) date) (0-450) /uL unknown) (unknown) (no (unknown) (unknown) Eos # (Auto) 100 (units (unknown) date) (0-450) /uL unknown) (unknown) (no (unknown) (unknown) Eos % (Auto) (2-4) (units (unknown) date) % unknown) (unknown) (no (unknown) (unknown) Eos % (Auto) 3.3 (units (unknown) date) (2-4) % unknown) (unknown) (no (unknown) (unknown) Esterase (units (unkno wn) date) unknown) (unknown) (no (unknown) (unknown) Estimated GFR > 60 (units (unknown) date) (>60) mL/min unknown) (unknown) (no (unknown) (unknown) Estimated GFR (units ( unknown) date) (>60) mL/min unknown) (unknown) (no (unknown) (unknown) Ethanol (ETOH) (units (unknown) date) Stat unknown) (unknown) (no (unknown) (unknown) Ethyl Alcohol < 10 (units (unknown) date) ( - 10) mg/dL unknown) (unknown) (no (unknown) (unknown) Ethyl Alcohol ( - (units (unknown) date) 10) mg/dL unknown) (unknown) (no (unknown) (unknown) Exam (units (unkno wn) date) unknown) (unknown) (no (unknown) (unknown) Extrem (units (unkno wn) date) unknown) (unknown) (no (unknown) (unknown) Family History (units (unknown) date) (Reviewed 07/13/22 unknown) @ 06:49 by LYUDMILA Borden) (unknown) (no (unknown) (unknown) Family/Other (units (u nknown) date) Alcoholism unknown) (unknown) (no (unknown) (unknown) Family/Other (units (u nknown) date) Diabetes mellitus unknown) (unknown) (no (unknown) (unknown) Father Alcoholism (units (unknown) date) unknown) (unknown) (no (unknown) (unknown) Tonia Schneider MD (units (unknown) date) [Primary Care unknown) Provider] (unknown) (no (unknown) (unknown) General (units (unkno wn) date) unknown) (unknown) (no (unknown) (unknown) General: (units (unkno wn) date) cooperative unknown) (unknown) (no (unknown) (unknown) General: no rashes (units (unknown) date) or lesions noted unknown) (unknown) (no (unknown) (unknown) General: normal to (units (unknown) date) inspection unknown) (unknown) (no (unknown) (unknown) Globulin (1.7-4.1) (units (unknown) date) g/dL unknown) (unknown) (no (unknown) (unknown) Globulin 2.8 (units (u nknown) date) (1.7-4.1) g/dL unknown) (unknown) (no (unknown) (unknown) Glucose (70-100) (units (unknown) date) mg/dL unknown) (unknown) (no (unknown) (unknown) Glucose 102 H (units ( unknown) date) (70-100) mg/dL [...] extraction () unknown) (unknown) (no (unknown) (unknown) HENMT (units (unkno wn) date) unknown) (unknown) (no (unknown) (unknown) HPI - General (units ( unknown) date) Adult unknown) (unknown) (no (unknown) (unknown) HPI narrative: (units (unknown) date) unknown) (unknown) (no (unknown) (unknown) Hct (36-46) % (units ( unknown) date) unknown) (unknown) (no (unknown) (unknown) Hct 32.3 L (36-46) (units (unknown) date) % unknown) (unknown) (no (unknown) (unknown) Head: normal to (units (unknown) date) inspection and unknown) normocephalic (unknown) (no (unknown) (unknown) Hgb (12.0-16.0) (units (unknown) date) g/dL unknown) (unknown) (no (unknown) (unknown) Hgb 10.6 L (units (unk nown) date) (12.0-16.0) g/dL unknown) (unknown) (no (unknown) (unknown) History of Present (units (unknown) date) Illness unknown) (unknown) (no (unknown) (unknown) Home Medications (units (unknown) date) unknown) (unknown) (no (unknown) (unknown) Ictotest Urine (units (unknown) date) Stat unknown) (unknown) (no (unknown) (unknown) Initial Vital (units ( unknown) date) Signs unknown) (unknown) (no (unknown) (unknown) Initial Vital (units ( unknown) date) Signs: unknown) (unknown) (no (unknown) (unknown) Insomnia (units (unkno wn) date) unknown) (unknown) (no (unknown) (unknown) Instructions: DI (units (unknown) date) for Alcohol Use unknown) Disorder (unknown) (no (unknown) (unknown) Is anxious (units (unk nown) date) appearing unknown) (unknown) (no (unknown) (unknown) [facility] (units (unknown) date) [address] [place] [address] unknown) [place] [address] (unknown) (no (unknown) (unknown) Lab Data (units (unkno wn) date) unknown) (unknown) (no (unknown) (unknown) Lab Results (units (un known) date) unknown) (unknown) (no (unknown) (unknown) Lab results (units (un known) date) reviewed: Yes I unknown) reviewed the patient's lab results. (unknown) (no (unknown) (unknown) Labs: (units (unkno wn) date) unknown) (unknown) (no (unknown) (unknown) Last Admin: (units (un known) date) 07/31/22 12:59 unknown) Dose: 1 mg (unknown) (no (unknown) (unknown) Last Admin: (units (un known) date) 07/31/22 12:59 unknown) Dose: 260 mg (unknown) (no (unknown) (unknown) Last Admin: (units (un known) date) 07/31/22 13:00 unknown) Dose: 1 tab (unknown) (no (unknown) (unknown) Last Admin: (units (un known) date) 07/31/22 17:20 unknown) Dose: 1 mg (unknown) (no (unknown) (unknown) Last Infusion: (units (unknown) date) 07/31/22 13:23 unknown) Dose: 0 mls/hr (unknown) (no (unknown) (unknown) Lipase (23-300) (units (unknown) date) U/L unknown) (unknown) (no (unknown) (unknown) Lipase 366 H (units (u nknown) date) (23-300) U/L unknown) (unknown) (no (unknown) (unknown) Lipase Stat (units (un known) date) unknown) (unknown) (no (unknown) (unknown) Lorazepam (units (unkn own) date) (Lorazepam 2 Mg/Ml unknown) Inj) 1 mg IV NOW ONE (unknown) (no (unknown) (unknown) Lymph # (Auto) (units (unknown) date) (0882-1521) /uL unknown) (unknown) (no (unknown) (unknown) Lymph # (Auto) (units (unknown) date) 1200 (8500-9448) unknown) /uL (unknown) (no (unknown) (unknown) Lymph % (Auto) (units (unknown) date) (25-40) % unknown) (unknown) (no (unknown) (unknown) Lymph % (Auto) (units (unknown) date) 27.8 (25-40) % unknown) (unknown) (no (unknown) (unknown) MCH (26-34) PG (units (unknown) date) unknown) (unknown) (no (unknown) (unknown) MCH 26.4 (26-34) (units (unknown) date) PG unknown) (unknown) (no (unknown) (unknown) MCHC (30-36) % (units (unknown) date) unknown) (unknown) (no (unknown) (unknown) MCHC 32.8 (30-36) (units (unknown) date) % unknown) (unknown) (no (unknown) (unknown) MCV (80-100) fL (units (unknown) date) unknown) (unknown) (no (unknown) (unknown) MCV 80.4 (80-100) (units (unknown) date) fL unknown) (unknown) (no (unknown) (unknown) MDM Narrative (units ( unknown) date) unknown) (unknown) (no (unknown) (unknown) Medical Decision (units (unknown) date) Making unknown) (unknown) (no (unknown) (unknown) Medical History (units (unknown) date) (Reviewed 07/31/22 unknown) @ 14:40 by Will Benitez DO) (unknown) (no (unknown) (unknown) Medical Records (units (unknown) date) unknown) (unknown) (no (unknown) (unknown) Medical decision (units (unknown) date) making narrative: unknown) (unknown) (no (unknown) (unknown) Medical records (units (unknown) date) reviewed: Yes I unknown) reviewed the patient's medical records. (unknown) (no (unknown) (unknown) Medication (units (unk nown) date) Instructions unknown) Recorded Confirmed (unknown) (no (unknown) (unknown) Medication (units (unk nown) date) Instructions unknown) Recorded (unknown) (no (unknown) (unknown) Menometrorrhagia (units (unknown) date) unknown) (unknown) (no (unknown) (unknown) Mode of arrival: (units (unknown) date) Ambulatory unknown) (unknown) (no (unknown) (unknown) Yates # (Auto) (units ( unknown) date) (0-900) /uL unknown) (unknown) (no (unknown) (unknown) Yates # (Auto) 300 (units (unknown) date) (0-900) /uL unknown) (unknown) (no (unknown) (unknown) Yates % (Auto) (units ( unknown) date) (3-14) % unknown) (unknown) (no (unknown) (unknown) Yates % (Auto) 7.9 (units (unknown) date) (3-14) % unknown) (unknown) (no (unknown) (unknown) Mother Diabetes (units (unknown) date) mellitus unknown) (unknown) (no (unknown) (unknown) Multivitamins (units ( unknown) date) (Multivitamin 1 unknown) Tablet) 1 tab PO DAILY SANDY (unknown) (no (unknown) (unknown) Neuro (units (unkno wn) date) unknown) (unknown) (no (unknown) (unknown) Neut # (Auto) (units ( unknown) date) (0951-4905) /uL unknown) (unknown) (no (unknown) (unknown) Neut # (Auto) 2600 (units (unknown) date) (7320-4906) /uL unknown) (unknown) (no (unknown) (unknown) Neut % (Auto) (units ( unknown) date) (50-75) % unknown) (unknown) (no (unknown) (unknown) Neut % (Auto) 60.0 (units (unknown) date) (50-75) % unknown) (unknown) (no (unknown) (unknown) No Action (units (unkn own) date) unknown) (unknown) (no (unknown) (unknown) Obesity (units (unkno wn) date) unknown) (unknown) (no (unknown) (unknown) Ordered: (units (unkno wn) date) unknown) (unknown) (no (unknown) (unknown) Orders (units (unkno wn) date) unknown) (unknown) (no (unknown) (unknown) Other: (units (unkno wn) date) unknown) (unknown) (no (unknown) (unknown) Overweight (units (unk nown) date) unknown) (unknown) (no (unknown) (unknown) Oxygen Delivery (units (unknown) date) Method Room Air unknown) 07/31/22 12:30 (unknown) (no (unknown) (unknown) Oxygen Delivery (units (unknown) date) Method Room Air unknown) (unknown) (no (unknown) (unknown) Oxygen Delivery (units (unknown) date) Method unknown) (unknown) (no (unknown) (unknown) Patient (units (unkno wn) date) Disposition: Home unknown) (unknown) (no (unknown) (unknown) Patient History (units (unknown) date) unknown) (unknown) (no (unknown) (unknown) Patient is a (units (u nknown) date) 31-year-old female. unknown) Has a history of alcohol use disorder. Has (unknown) (no (unknown) (unknown) Patient is alert (units (unknown) date) oriented. Has unknown) tremors. No seizure activity. Moves all 4 (unknown) (no (unknown) (unknown) Patient received (units (unknown) date) phenobarbital and unknown) also multiple doses of Ativan. She states (unknown) (no (unknown) (unknown) Patient states (units (unknown) date) that her last drink unknown) was on Saturday which would have been 4 days (unknown) (no (unknown) (unknown) Patient: (units (unkno wn) date) Sarah Connors R unknown) MR#: M (unknown) (no (unknown) (unknown) Phenobarbital (units ( unknown) date) (Phenobarbital 65 unknown) Mg/Ml Vial) 260 mg IV NOW ONE (unknown) (no (unknown) (unknown) Plt Count (units (unkn own) date) (150-400) X103/uL unknown) (unknown) (no (unknown) (unknown) Plt Count 229 (units ( unknown) date) (150-400) X103/uL unknown) (unknown) (no (unknown) (unknown) Point of Care (units ( unknown) date) Testing unknown) (unknown) (no (unknown) (unknown) Point of care (units ( unknown) date) testing: unknown) (unknown) (no (unknown) (unknown) Potassium (units (unkn own) date) (3.4-5.1) mmol/L unknown) (unknown) (no (unknown) (unknown) Potassium 3.8 (units ( unknown) date) (3.4-5.1) mmol/L unknown) (unknown) (no (unknown) (unknown) Test (units (unknown) date) Results Negative unknown) (unknown) (no (unknown) (unknown) Test (units (unknown) date) Serum,Qual Stat unknown) (unknown) (no (unknown) (unknown) Prescriptions: (units (unknown) date) unknown) (unknown) (no (unknown) (unknown) Previous Rx's (units ( unknown) date) unknown) (unknown) (no (unknown) (unknown) Psych (units (unkno wn) date) unknown) (unknown) (no (unknown) (unknown) Pulse Oximetry 100 (units (unknown) date) 07/31/22 12:30 unknown) (unknown) (no (unknown) (unknown) Pulse Oximetry 100 (units (unknown) date) 100 99 unknown) (unknown) (no (unknown) (unknown) Pulse Oximetry 100 (units (unknown) date) 93 100 unknown) (unknown) (no (unknown) (unknown) Pulse Oximetry 100 (units (unknown) date) 94 unknown) (unknown) (no (unknown) (unknown) Pulse Oximetry 100 (units (unknown) date) 99 unknown) (unknown) (no (unknown) (unknown) Pulse Oximetry 100 (units (unknown) date) unknown) (unknown) (no (unknown) (unknown) Pulse Oximetry 94 (units (unknown) date) unknown) (unknown) (no (unknown) (unknown) Pulse Oximetry 96 (units (unknown) date) 97 unknown) (unknown) (no (unknown) (unknown) Pulse Oximetry 96 (units (unknown) date) unknown) (unknown) (no (unknown) (unknown) Pulse Oximetry 98 (units (unknown) date) 99 unknown) (unknown) (no (unknown) (unknown) Pulse Oximetry 99 (units (unknown) date) 100 100 unknown) (unknown) (no (unknown) (unknown) Pulse Oximetry 99 (units (unknown) date) 98 unknown) (unknown) (no (unknown) (unknown) Pulse Oximetry 99 (units (unknown) date) 99 unknown) (unknown) (no (unknown) (unknown) Pulse Oximetry 99 (units (unknown) date) unknown) (unknown) (no (unknown) (unknown) Pulse Oximetry (units (unknown) date) unknown) (unknown) (no (unknown) (unknown) Pulse Rate 62 64 (units (unknown) date) unknown) (unknown) (no (unknown) (unknown) Pulse Rate 62 (units ( unknown) date) unknown) (unknown) (no (unknown) (unknown) Pulse Rate 63 60 (units (unknown) date) unknown) (unknown) (no (unknown) (unknown) Pulse Rate 63 65 (units (unknown) date) unknown) (unknown) (no (unknown) (unknown) Pulse Rate 64 62 (units (unknown) date) unknown) (unknown) (no (unknown) (unknown) Pulse Rate 64 73 (units (unknown) date) unknown) (unknown) (no (unknown) (unknown) Pulse Rate 64 (units ( unknown) date) unknown) (unknown) (no (unknown) (unknown) Pulse Rate 65 66 (units (unknown) date) 66 unknown) (unknown) (no (unknown) (unknown) Pulse Rate 65 75 (units (unknown) date) unknown) (unknown) (no (unknown) (unknown) Pulse Rate 66 66 (units (unknown) date) 67 unknown) (unknown) (no (unknown) (unknown) Pulse Rate 66 (units ( unknown) date) unknown) (unknown) (no (unknown) (unknown) Pulse Rate 67 65 (units (unknown) date) unknown) (unknown) (no (unknown) (unknown) Pulse Rate 67 72 (units (unknown) date) unknown) (unknown) (no (unknown) (unknown) Pulse Rate 68 (units ( unknown) date) 07/31/22 12:30 unknown) (unknown) (no (unknown) (unknown) Pulse Rate 68 66 (units (unknown) date) 66 unknown) (unknown) (no (unknown) (unknown) Pulse Rate 69 (units ( unknown) date) unknown) (unknown) (no (unknown) (unknown) Pulse Rate 71 (units ( unknown) date) unknown) (unknown) (no (unknown) (unknown) Pulse Rate 72 (units ( unknown) date) unknown) (unknown) (no (unknown) (unknown) RBC (4.0-5.2) (units ( unknown) date) X106/uL unknown) (unknown) (no (unknown) (unknown) RBC 4.02 (4.0-5.2) (units (unknown) date) X106/uL unknown) (unknown) (no (unknown) (unknown) RDW (11.6-14.8) % (units (unknown) date) unknown) (unknown) (no (unknown) (unknown) RDW 19.5 H (units (unk nown) date) (11.6-14.8) % unknown) (unknown) (no (unknown) (unknown) ROS Unobtainable: (units (unknown) date) All systems unknown) reviewed + are unremarkable except as noted in HPI (unknown) (no (unknown) (unknown) Rate: regular rate (units (unknown) date) unknown) (unknown) (no (unknown) (unknown) Referrals: (units (unk nown) date) unknown) (unknown) (no (unknown) (unknown) Related Data (units (u nknown) date) unknown) (unknown) (no (unknown) (unknown) Resp (units (unkno wn) date) unknown) (unknown) (no (unknown) (unknown) Respiratory Rate (units (unknown) date) 17 07/31/22 12:30 unknown) (unknown) (no (unknown) (unknown) Respiratory Rate (units (unknown) date) 17 30 H 29 H unknown) (unknown) (no (unknown) (unknown) Respiratory Rate (units (unknown) date) 20 18 unknown) (unknown) (no (unknown) (unknown) Respiratory Rate (units (unknown) date) 20 32 H 21 unknown) (unknown) (no (unknown) (unknown) Respiratory Rate (units (unknown) date) 21 20 unknown) (unknown) (no (unknown) (unknown) Respiratory Rate (units (unknown) date) 22 unknown) (unknown) (no (unknown) (unknown) Respiratory Rate (units (unknown) date) 23 18 unknown) (unknown) (no (unknown) (unknown) Respiratory Rate (units (unknown) date) 23 24 unknown) (unknown) (no (unknown) (unknown) Respiratory Rate (units (unknown) date) 23 unknown) (unknown) (no (unknown) (unknown) Respiratory Rate (units (unknown) date) 25 H unknown) (unknown) (no (unknown) (unknown) Respiratory Rate (units (unknown) date) 26 H 17 unknown) (unknown) (no (unknown) (unknown) Respiratory Rate (units (unknown) date) 26 H unknown) (unknown) (no (unknown) (unknown) Respiratory Rate (units (unknown) date) 27 H unknown) (unknown) (no (unknown) (unknown) Respiratory Rate (units (unknown) date) 29 H 36 H 34 H unknown) (unknown) (no (unknown) (unknown) Respiratory Rate (units (unknown) date) 29 H 38 H unknown) (unknown) (no (unknown) (unknown) Respiratory Rate (units (unknown) date) 31 H unknown) (unknown) (no (unknown) (unknown) Respiratory Rate (units (unknown) date) 32 H unknown) (unknown) (no (unknown) (unknown) Respiratory Rate (units (unknown) date) 33 H unknown) (unknown) (no (unknown) (unknown) Respiratory Rate (units (unknown) date) 34 H unknown) (unknown) (no (unknown) (unknown) Review of Systems (units (unknown) date) unknown) (unknown) (no (unknown) (unknown) Rhythm: regular (units (unknown) date) rhythm unknown) (unknown) (no (unknown) (unknown) S/P myringotomy [...] nown) date) unknown) (unknown) (no (unknown) (unknown) Skin (units (unkno wn) date) unknown) (unknown) (no (unknown) (unknown) Smoker (units (unkno wn) date) unknown) (unknown) (no (unknown) (unknown) Smoking Status: (units (unknown) date) Former smoker unknown) (unknown) (no (unknown) (unknown) Social History (units (unknown) date) (Reviewed 07/31/22 unknown) @ 14:40 by Will Benitez DO) (unknown) (no (unknown) (unknown) Sodium (137-145) (units (unknown) date) mmol/L unknown) (unknown) (no (unknown) (unknown) Sodium 137 (units (unk nown) date) (137-145) mmol/L unknown) (unknown) (no (unknown) (unknown) Source: patient (units (unknown) date) unknown) (unknown) (no (unknown) (unknown) Stand Alone Forms: (units (unknown) date) Patient Portal/API unknown) (unknown) (no (unknown) (unknown) Stated complaint: (units (unknown) date) SOB, tremors unknown) (unknown) (no (unknown) (unknown) Stop: 07/31/22 (units (unknown) date) 12:36 unknown) (unknown) (no (unknown) (unknown) Stop: 07/31/22 (units (unknown) date) 15:18 unknown) (unknown) (no (unknown) (unknown) Substance Use (units ( unknown) date) Type: does not use unknown) (unknown) (no (unknown) (unknown) Surgical History (units (unknown) date) (Reviewed 07/13/22 unknown) @ 06:49 by LYUDMILA Borden) (unknown) (no (unknown) (unknown) Temperature 97.7 F (units (unknown) date) 07/31/22 12:30 unknown) (unknown) (no (unknown) (unknown) Temperature 97.7 F (units (unknown) date) unknown) (unknown) (no (unknown) (unknown) Temperature (units (un known) date) unknown) (unknown) (no (unknown) (unknown) Thiamine HCl 200 (units (unknown) date) mg/ Sodium unknown) (Chloride) 102 mls @ 408 mls/hr IV DAILY SANDY (unknown) (no (unknown) (unknown) Time Seen by (units (u nknown) date) Provider: 07/31/22 unknown) 12:35 (unknown) (no (unknown) (unknown) Total Bilirubin (units (unknown) date) (0.2-1.3) mg/dL unknown) (unknown) (no (unknown) (unknown) Total Bilirubin (units (unknown) date) 0.8 (0.2-1.3) mg/dL unknown) (unknown) (no (unknown) (unknown) Total Protein (units ( unknown) date) (6.3-8.2) g/dL unknown) (unknown) (no (unknown) (unknown) Total Protein 7.2 (units (unknown) date) (6.3-8.2) g/dL unknown) (unknown) (no (unknown) (unknown) U Benzodiazepines (units (unknown) date) Scrn (Negative) unknown) (unknown) (no (unknown) (unknown) U Benzodiazepines (units (unknown) date) Scrn Positive H unknown) (Negative) (unknown) (no (unknown) (unknown) U Marijuana (THC) (units (unknown) date) Screen (Negative) unknown) (unknown) (no (unknown) (unknown) U Marijuana (THC) (units (unknown) date) Screen Negative unknown) (Negative) (unknown) (no (unknown) (unknown) U Methamphetamines (units (unknown) date) Scrn (Negative) unknown) (unknown) (no (unknown) (unknown) U Methamphetamines (units (unknown) date) Scrn Negative unknown) (Negative) (unknown) (no (unknown) (unknown) U Opiates 300ng/mL (units (unknown) date) cut (Negative) unknown) (unknown) (no (unknown) (unknown) U Opiates 300ng/mL (units (unknown) date) cut Negative unknown) (Negative) (unknown) (no (unknown) (unknown) U Tricyclic (units (un known) date) Antidepress unknown) (Negative) (unknown) (no (unknown) (unknown) U Tricyclic (units (un known) date) Antidepress unknown) Positive H (Negative) (unknown) (no (unknown) (unknown) Ur Amphetamines (units (unknown) date) Screen (Negative) unknown) (unknown) (no (unknown) (unknown) Ur Amphetamines (units (unknown) date) Screen Negative unknown) (Negative) (unknown) (no (unknown) (unknown) Ur Barbiturates (units (unknown) date) Screen (Negative) unknown) (unknown) (no (unknown) (unknown) Ur Barbiturates (units (unknown) date) Screen Positive H unknown) (Negative) (unknown) (no (unknown) (unknown) Ur Bilirubin (units (u nknown) date) Confirm (Negative) unknown) (unknown) (no (unknown) (unknown) Ur Bilirubin (units (u nknown) date) Confirm Negative unknown) (Negative) (unknown) (no (unknown) (unknown) Ur Culture (units (unk nown) date) Indicated? Cult not unknown) indicated (unknown) (no (unknown) (unknown) Ur Culture (units (unk nown) date) Indicated? unknown) (unknown) (no (unknown) (unknown) Ur Leukocyte (units (u nknown) date) Esterase (NEGATIVE) unknown) (unknown) (no (unknown) (unknown) Ur Leukocyte (units (u nknown) date) Esterase Negative unknown) (NEGATIVE) (unknown) (no (unknown) (unknown) Ur MDMA Scrn (units (u nknown) date) (Ecstasy) unknown) (Negative) (unknown) (no (unknown) (unknown) Ur MDMA Scrn (units (u nknown) date) (Ecstasy) Negative unknown) (Negative) (unknown) (no (unknown) (unknown) Ur Oxycodone (units (u nknown) date) Screen (Negative) unknown) (unknown) (no (unknown) (unknown) Ur Oxycodone (units (u nknown) date) Screen Negative unknown) (Negative) (unknown) (no (unknown) (unknown) Ur Phencyclidine (units (unknown) date) Scrn (Negative) unknown) (unknown) (no (unknown) (unknown) Ur Phencyclidine (units (unknown) date) Scrn Negative unknown) (Negative) (unknown) (no (unknown) (unknown) Ur Specific (units (un known) date) [place] >=1.030 H unknown) (1.000-1.035) (unknown) (no (unknown) (unknown) Ur Specific (units (un known) date) [place] unknown) (1.000-1.035) (unknown) (no (unknown) (unknown) Ur Squamous Epith (units (unknown) date) Cells (0-5/HPF) unknown) (unknown) (no (unknown) (unknown) Ur Squamous Epith (units (unknown) date) Cells 5-10 /hpf H unknown) (0-5/HPF) (unknown) (no (unknown) (unknown) Urinalysis and (units (unknown) date) Microscopic Stat unknown) (unknown) (no (unknown) (unknown) Urine Appearance (units (unknown) date) Sl cloudy unknown) (unknown) (no (unknown) (unknown) Urine Appearance (units (unknown) date) unknown) (unknown) (no (unknown) (unknown) Urine Bacteria (units (unknown) date) (None) unknown) (unknown) (no (unknown) (unknown) Urine Bacteria (units (unknown) date) None seen (None) unknown) (unknown) (no (unknown) (unknown) Urine Bilirubin (units (unknown) date) (NEGATIVE) unknown) (unknown) (no (unknown) (unknown) Urine Bilirubin 1+ (units (unknown) date) H D (NEGATIVE) unknown) (unknown) (no (unknown) (unknown) Urine Cocaine (units ( unknown) date) Screen (Negative) unknown) (unknown) (no (unknown) (unknown) Urine Cocaine (units ( unknown) date) Screen Negative unknown) (Negative) (unknown) (no (unknown) (unknown) Urine Color Yellow (units (unknown) date) unknown) (unknown) (no (unknown) (unknown) Urine Color (units (un known) date) unknown) (unknown) (no (unknown) (unknown) Urine Dip (units (unkn own) date) unknown) (unknown) (no (unknown) (unknown) Urine Drug Screen, (units (unknown) date) Rapid Stat unknown) (unknown) (no (unknown) (unknown) Urine Glucose (UA) (units (unknown) date) (Negative) g/dL unknown) (unknown) (no (unknown) (unknown) Urine Glucose (UA) (units (unknown) date) Negative (Negative) unknown) g/dL (unknown) (no (unknown) (unknown) Urine Ketones (units ( unknown) date) (NEGATIVE) unknown) (unknown) (no (unknown) (unknown) Urine Ketones 1+ H (units (unknown) date) (NEGATIVE) unknown) (unknown) (no (unknown) (unknown) Urine Methadone (units (unknown) date) Screen (Negative) unknown) (unknown) (no (unknown) (unknown) Urine Methadone (units (unknown) date) Screen Negative unknown) (Negative) (unknown) (no (unknown) (unknown) Urine Nitrate (units ( unknown) date) (Negative) unknown) (unknown) (no (unknown) (unknown) Urine Nitrate (units ( unknown) date) Negative (Negative) unknown) (unknown) (no (unknown) (unknown) Urine Occult Blood (units (unknown) date) (Negative) unknown) (unknown) (no (unknown) (unknown) Urine Occult Blood (units (unknown) date) Negative (Negative) unknown) (unknown) (no (unknown) (unknown) Urine Protein (units ( unknown) date) (Negative) unknown) (unknown) (no (unknown) (unknown) Urine Protein (units ( unknown) date) Trace H (Negative) unknown) (unknown) (no (unknown) (unknown) Urine RBC (units (unkn own) date) (0-5/HPF) unknown) (unknown) (no (unknown) (unknown) Urine RBC None (units (unknown) date) seen (0-5/HPF) unknown) (unknown) (no (unknown) (unknown) Urine Specific (units (unknown) date) [place] 1.030 unknown) (unknown) (no (unknown) (unknown) Urine Urobilinogen (units (unknown) date) (0.2) E.U./dL unknown) (unknown) (no (unknown) (unknown) Urine Urobilinogen (units (unknown) date) 0.2 (0.2) E.U./dL unknown) (unknown) (no (unknown) (unknown) Urine WBC (units (unkn own) date) (0-5/HPF) unknown) (unknown) (no (unknown) (unknown) Urine WBC None (units (unknown) date) seen (0-5/HPF) unknown) (unknown) (no (unknown) (unknown) Urine pH (4.5-8.0) (units (unknown) date) unknown) (unknown) (no (unknown) (unknown) Urine pH 6.0 (units (u nknown) date) (4.5-8.0) unknown) (unknown) (no (unknown) (unknown) Vital Signs - 8 hr (units (unknown) date) unknown) (unknown) (no (unknown) (unknown) Vital Signs (units (un known) date) unknown) (unknown) (no (unknown) (unknown) Vital signs: (units (u nknown) date) unknown) (unknown) (no (unknown) (unknown) WBC (4.5-11.0) (units (unknown) date) X103/uL unknown) (unknown) (no (unknown) (unknown) WBC 4.4 L (units (unkn own) date) (4.5-11.0) X103/uL unknown) (unknown) (no (unknown) (unknown) [Embedded Image (units (unknown) date) Not Available] unknown) (unknown) (no (unknown) (unknown) [METOCLOPRAMIDE] (units (unknown) date) unknown) (unknown) (no (unknown) (unknown) ago. Today she is (units (unknown) date) alert oriented x3. unknown) Is not clinically intoxicated. Her (unknown) (no (unknown) (unknown) alcohol intake (units (unknown) date) frequency: 3 or unknown) more drinks per day (unknown) (no (unknown) (unknown) alcohol intake: (units (unknown) date) former unknown) (unknown) (no (unknown) (unknown) alcohol level is (units (unknown) date) 0. In my opinion unknown) does have the capacity to make decisions. (unknown) (no (unknown) (unknown) and below (units (unkn own) date) unknown) (unknown) (no (unknown) (unknown) current (units (unkno wn) date) occupational unknown) exposures/hazards: Yes (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 with Pandemic ) (unknown) (no (unknown) (unknown) department for (units (unknown) date) alcohol withdrawal. unknown) She states that after she was discharged she (unknown) (no (unknown) (unknown) discharged home. I (units (unknown) date) do recommend that unknown) you abstain from drinking alcohol. (unknown) (no (unknown) (unknown) does not want (units ( unknown) date) detox/rehab. We unknown) discussed admitting her to the hospital for (unknown) (no (unknown) (unknown) drink was on (units (u nknown) date) Saturday. She states unknown) that since she is stopped drinking she has had (unknown) (no (unknown) (unknown) education level: (units (unknown) date) college unknown) (unknown) (no (unknown) (unknown) elevated. Had a (units (unknown) date) long discussion unknown) with her regarding options. She states she (unknown) (no (unknown) (unknown) extremities. Is (units (unknown) date) ambulatory. unknown) (unknown) (no (unknown) (unknown) renee/zoroastrianism: (units (unknown) date) Buddhist unknown) (unknown) (no (unknown) (unknown) fluoxetine 10 mg (units (unknown) date) capsule 10 mg PO unknown) DAILY 07/13/22 07/13/22 (unknown) (no (unknown) (unknown) fluoxetine 10 mg (units (unknown) date) capsule unknown) (unknown) (no (unknown) (unknown) further treatment (units (unknown) date) of what appears to unknown) be alcohol withdrawal. She states she does (unknown) (no (unknown) (unknown) hospital for (units (u nknown) date) further control of unknown) your alcohol withdrawal you opted to be (unknown) (no (unknown) (unknown) household members: (units (unknown) date) children unknown) (unknown) (no (unknown) (unknown) hydrocodone (units (un known) date) [HYDROCODONE] unknown) AdvReac Unknown VOMITING Verified 07/12/22 16:18 (unknown) (no (unknown) (unknown) hydroxyzine HCl 50 (units (unknown) date) mg tablet 50 mg PO unknown) DAILY 07/13/22 07/13/22 (unknown) (no (unknown) (unknown) hydroxyzine HCl 50 (units (unknown) date) mg tablet unknown) (unknown) (no (unknown) (unknown) marital status: (units (unknown) date) unknown) (unknown) (no (unknown) (unknown) mcg tablet (units (unk nown) date) (Tab-A-Kael) unknown) (unknown) (no (unknown) (unknown) metoclopramide (units (unknown) date) Allergy Mild unknown) RASH/HIVES Verified 07/12/22 16:18 (unknown) (no (unknown) (unknown) mg tablet (units (unkn own) date) unknown) (unknown) (no (unknown) (unknown) multivitamin with (units (unknown) date) folic acid 400 1 unknown) tab PO DAILY #30 tabs 07/14/22 (unknown) (no (unknown) (unknown) multivitamin with (units (unknown) date) folic acid unknown) [Tab-A-Kael] 400 mcg Tablet (unknown) (no (unknown) (unknown) not want to be (units (unknown) date) admitted to the unknown) hospital. She states she is feeling better and (unknown) (no (unknown) (unknown) number of (units (unkn own) date) children: 1 unknown) (unknown) (no (unknown) (unknown) occupational (units (u nknown) date) status: employed unknown) (unknown) (no (unknown) (unknown) pantoprazole 40 mg (units (unknown) date) Tablet,Delayed unknown) Release (Dr/Ec) (unknown) (no (unknown) (unknown) pantoprazole 40 mg (units (unknown) date) tablet,delayed 40 unknown) mg PO 0700 #30 tabs 07/14/22 (unknown) (no (unknown) (unknown) past. At the (units (u nknown) date) beginning of the unknown) month and an extended stay here in the emergency (unknown) (no (unknown) (unknown) precautions. She (units (unknown) date) expressed unknown) understanding and agreement. (unknown) (no (unknown) (unknown) quetiapine 300 mg (units (unknown) date) tablet 300 mg PO unknown) DAILY 07/13/22 07/13/22 (unknown) (no (unknown) (unknown) quetiapine 300 mg (units (unknown) date) tablet unknown) (unknown) (no (unknown) (unknown) release (units (unkno wn) date) unknown) (unknown) (no (unknown) (unknown) second hand (units (un known) date) exposure: No unknown) (growing up as a child - not currently) (unknown) (no (unknown) (unknown) shaking and nausea (units (unknown) date) and shortness of unknown) breath and tremors and generally not feeling (unknown) (no (unknown) (unknown) she feels much (units (unknown) date) better although she unknown) is still shaking in her CIWA score is still (unknown) (no (unknown) (unknown) special renee (units ( unknown) date) needs: No unknown) (unknown) (no (unknown) (unknown) substance use (units ( unknown) date) type: does not use unknown) (unknown) (no (unknown) (unknown) thiamine (units (unkno wn) date) mononitrate (vit unknown) B1) 100 100 mg PO DAILY #30 tabs 07/14/22 (unknown) (no (unknown) (unknown) thiamine (units (unkno wn) date) mononitrate (vit unknown) B1) 100 mg Tablet (unknown) (no (unknown) (unknown) this and still (units (unknown) date) would like to be unknown) discharged. Patient was given strict return (unknown) (no (unknown) (unknown) to the emergency (units (unknown) date) department at any unknown) point for new or worsening symptoms. (unknown) (no (unknown) (unknown) very well. No (units ( unknown) date) seizure-like unknown) activity. She denies any other ingestions. (unknown) (no (unknown) (unknown) went back to (units (u nknown) date) drinking and went unknown) on a ?[place] ?this was a couple days. Her last (unknown) (no (unknown) (unknown) which could (units (un known) date) potentially be unknown) life-threatening. She expressed understanding of (unknown) (no (unknown) (unknown) withdrawn from (units (unknown) date) alcohol in the unknown) past. She states she is had a seizure in the (unknown) (no (unknown) (unknown) would like to be (units (unknown) date) home. Did discuss unknown) the risks of going home to include seizures Result panel [id number] (unknown) (no (unknown) (unknown) (no value) (units (unk nown) date) unknown) (unknown) (no (unknown) (unknown) 08/01/22 (units (unkno wn) date) unknown) (unknown) (no (unknown) (unknown) [id number] [address] (units (unkn own) date) Street unknown) (unknown) (no (unknown) (unknown) Accession (units (unkn own) date) Number: unknown) [id number] (unknown) (no (unknown) (unknown) Age/Sex: 31 / F (units (unknown) date) Date of Service: unknown) (unknown) (no (unknown) (unknown) [place] (units ( unknown) date) [id number] unknown) (unknown) (no (unknown) (unknown) Approved by: (units (u nknown) date) Esvin Hubbard M.D. unknown) on 08/01/2022 at 7:06 (unknown) (no (unknown) (unknown) Brain: No (units (unkn own) date) midline shift. unknown) No intracranial masses or hemorrhage. Zhang-white (unknown) (no (unknown) (unknown) COMPARISON: (units (un known) date) None. unknown) (unknown) (no (unknown) (unknown) CSF spaces: (units (un known) date) Basal cisterns unknown) are patent. No extra-axial fluid collections. (unknown) (no (unknown) (unknown) CT Scan Report (units (unknown) date) unknown) (unknown) (no (unknown) (unknown) : 1990 (units (unknown) date) Acct:[id number] unknown) (unknown) (no (unknown) (unknown) Dictated by: (units (u nknown) date) Esvin Hubbard M.D. unknown) on 08/01/2022 at 7:06 (unknown) (no (unknown) (unknown) FINDINGS: (units (unkn own) date) unknown) (unknown) (no (unknown) (unknown) IMPRESSION: CT (units (unknown) date) head without unknown) acute intracranial abnormalities. No mass or mass (unknown) (no (unknown) (unknown) INDICATIONS: (units (u nknown) date) altered mental unknown) status (unknown) (no (unknown) (unknown) Image quality: (units (unknown) date) Excellent. 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 (unknown) (no (unknown) (unknown) Noncontrast 4.5 (units (unknown) date) mm thick angled unknown) axial sections acquired from the foramen magnum (unknown) (no (unknown) (unknown) Ordering (units (unkno wn) date) Provider: unknown) Reinaldo Arthur D.O. (unknown) (no (unknown) (unknown) PROCEDURE: CT (units ( unknown) date) HEAD/BRAIN WO unknown) CON (unknown) (no (unknown) (unknown) Patient: (units (unkno wn) date) Sarah Connors unknown) R MR#: (unknown) (no (unknown) (unknown) Procedure: CT (units ( unknown) date) head/brain wo unknown) con (unknown) (no (unknown) (unknown) Signed (units (unkno wn) date) unknown) (unknown) (no (unknown) (unknown) Sinuses: (units (unkno wn) date) Visualized unknown) sinuses and mastoids are clear. (unknown) (no (unknown) (unknown) Skull and face: (units (unknown) date) Calvarium and unknown) visualized facial bones are intact, without (unknown) (no (unknown) (unknown) TECHNIQUE: (units (unk nown) date) unknown) (unknown) (no (unknown) (unknown) Ventricles (units (unk nown) date) unknown) (unknown) (no (unknown) (unknown) are normal in (units ( unknown) date) size and shape. unknown) (unknown) (no (unknown) (unknown) effect (units (unkno wn) date) unknown) (unknown) (no (unknown) (unknown) following (units (unkn own) date) unknown) (unknown) (no (unknown) (unknown) interface is (units (u nknown) date) normal. unknown) (unknown) (no (unknown) (unknown) lesions. (units (unkno wn) date) unknown) (unknown) (no (unknown) (unknown) matter (units (unkno wn) date) unknown) (unknown) (no (unknown) (unknown) patient (units (unkno wn) date) unknown) (unknown) (no (unknown) (unknown) size. (units (unkno wn) date) unknown) (unknown) (no (unknown) (unknown) suspicious (units (unk nown) date) unknown) (unknown) (no (unknown) (unknown) to the (units (unkno wn) date) unknown) (unknown) (no (unknown) (unknown) vertex, with (units (u nknown) date) coronal and unknown) sagittal reformats. For radiation dose reduction, the (unknown) (no (unknown) (unknown) visualized. (units (un known) date) unknown) (unknown) (no (unknown) (unknown) was used: (units (unkn own) date) automated unknown) exposure control, adjustment of mA and/or kV according to Result panel [id number] (unknown) (no (unknown) (unknown) (no value) (units (unk nown) date) unknown) (unknown) (no (unknown) (unknown) [id number] (units (unkn own) date) unknown) (unknown) (no (unknown) (unknown) 08/01/22 (units (unkno wn) date) unknown) (unknown) (no (unknown) (unknown) 1 tab PO DAILY (units (unknown) date) Qty: 30 0RF unknown) (unknown) (no (unknown) (unknown) 10 mg PO DAILY (units (unknown) date) unknown) (unknown) (no (unknown) (unknown) 100 mg PO DAILY (units (unknown) date) Qty: 30 0RF unknown) (unknown) (no (unknown) (unknown) 12 point review of (units (unknown) date) systems is negative unknown) except for those stated above (unknown) (no (unknown) (unknown) 300 mg PO DAILY (units (unknown) date) unknown) (unknown) (no (unknown) (unknown) 31-year-old female (units (unknown) date) former smoker with unknown) extensive history of alcohol abuse returns (unknown) (no (unknown) (unknown) 40 mg PO 0700 Qty: (units (unknown) date) 30 0RF unknown) (unknown) (no (unknown) (unknown) 50 mg PO DAILY (units (unknown) date) unknown) (unknown) (no (unknown) (unknown) Age/Sex: 31 / F (units (unknown) date) unknown) (unknown) (no (unknown) (unknown) Alcohol withdrawal (units (unknown) date) delirium, acute, unknown) hyperactive (unknown) (no (unknown) (unknown) Alcoholism (units (unk [...] gallops, or rubs. (unknown) (no (unknown) (unknown) CARDIOVASCULAR: (units (unknown) date) See HPI unknown) (unknown) (no (unknown) (unknown) CT head/brain wo (units (unknown) date) con Stat unknown) (unknown) (no (unknown) (unknown) Chief Complaint: (units (unknown) date) Psychiatric unknown) Symptoms (unknown) (no (unknown) (unknown) Course (units (unkno wn) date) unknown) (unknown) (no (unknown) (unknown) : 1990 (units (unknown) date) Acct:[id number] unknown) (unknown) (no (unknown) (unknown) Date of Service: (units (unknown) date) 08/01/22 unknown) (unknown) (no (unknown) (unknown) Departure (units [...] (unknown) date) edema or joint unknown) tenderness. Tremulous with arms extended (unknown) (no (unknown) (unknown) EYES: Pupils equal (units (unknown) date) round and reactive. unknown) Extraocular motions intact. No scleral (unknown) (no (unknown) (unknown) Emergency Report (units (unknown) date) unknown) (unknown) (no (unknown) (unknown) Exam Narrative: (units (unknown) date) unknown) (unknown) (no (unknown) (unknown) Exam (units (unkno wn) date) unknown) (unknown) (no (unknown) (unknown) Family History (units (unknown) date) (Reviewed 08/01/22 unknown) @ 06:02 by Reinaldo Arthur DO) (unknown) (no (unknown) (unknown) Family/Other (units (u nknown) date) Alcoholism unknown) (unknown) (no (unknown) (unknown) Family/Other (units (u nknown) date) Diabetes mellitus unknown) (unknown) (no (unknown) (unknown) Father Alcoholism (units (unknown) date) unknown) (unknown) (no (unknown) (unknown) Tonia Schneider MD (units (unknown) date) [Primary Care unknown) Provider] (unknown) (no (unknown) (unknown) GASTROINTESTINAL: (units (unknown) date) Abdomen soft, unknown) non-tender, nondistended. (unknown) (no (unknown) (unknown) GASTROINTESTINAL: (units (unknown) date) Denies nausea, unknown) vomiting, abdominal pain, diarrhea, (unknown) (no (unknown) (unknown) GENERAL: Denies (units (unknown) date) chills, fatigue, unknown) malaise, fever, sweats. (unknown) (no (unknown) (unknown) GENERAL: [31] year [...] swallowing, (unknown) (no (unknown) (unknown) HPI - Altered (units ( unknown) date) Mental Status unknown) (unknown) (no (unknown) (unknown) HPI narrative: (units (unknown) date) unknown) (unknown) (no (unknown) (unknown) History of Present (units (unknown) date) Illness unknown) (unknown) (no (unknown) (unknown) Home Medications (units (unknown) date) unknown) (unknown) (no (unknown) (unknown) Insomnia (units (unkno wn) date) unknown) (unknown) (no (unknown) (unknown) [facility] (units (unknown) date) [address] unknown) [place] [id number] (unknown) (no (unknown) (unknown) MUSCULOSKELETAL: (units (unknown) date) denies weakness, unknown) joint pain, or bony pain (unknown) (no (unknown) (unknown) Medical History (units (unknown) date) (Reviewed 08/01/22 unknown) @ 06:02 by Reinaldo Arthur DO) (unknown) (no (unknown) [...] (unknown) NEURO: AOx3. (units (u nknown) date) Cranial nerves 2-12 unknown) grossly intact (unknown) (no (unknown) (unknown) NEUROLOGIC: See (units (unknown) date) HPI unknown) (unknown) (no (unknown) (unknown) Narrative (units (unkn own) date) unknown) (unknown) (no (unknown) (unknown) Narrative: (units (unk nown) date) unknown) (unknown) (no (unknown) (unknown) No Action (units (unkn own) date) unknown) (unknown) (no (unknown) (unknown) Obesity (units (unkno wn) date) unknown) (unknown) (no (unknown) (unknown) Ordered: (units (unkno wn) date) unknown) (unknown) (no (unknown) (unknown) Orders (units (unkno wn) date) unknown) (unknown) (no (unknown) (unknown) Overweight (units (unk nown) date) unknown) (unknown) (no (unknown) (unknown) PSYCHIATRIC: No (units (unknown) date) concerning unknown) psychosocial issues. (unknown) (no (unknown) (unknown) Patient History (units (unknown) date) unknown) (unknown) (no (unknown) (unknown) Patient: (units (unkno wn) date) Sarah Connors R unknown) MR#: M (unknown) (no (unknown) [...] (unknown) Social History (units (unknown) date) (Reviewed 08/01/22 unknown) @ 06:02 by Reinaldo Arthur DO) (unknown) (no (unknown) (unknown) Stated Complaint: (units (unknown) date) Altered LOC unknown) (unknown) (no (unknown) (unknown) Substance Use (units ( unknown) date) Type: does not use unknown) (unknown) (no (unknown) (unknown) Surgical History (units (unknown) date) (Reviewed 08/01/22 unknown) @ 06:02 by Reinaldo Arthur DO) (unknown) (no (unknown) (unknown) Time Seen by (units (u nknown) date) Provider: 08/01/22 unknown) 05:45 (unknown) (no (unknown) (unknown) [METOCLOPRAMIDE] (units (unknown) date) unknown) (unknown) (no (unknown) (unknown) alcohol intake (units (unknown) date) frequency: 3 or unknown) more drinks per day (unknown) (no (unknown) (unknown) alcohol intake: (units (unknown) date) former unknown) (unknown) (no (unknown) (unknown) alert but does (units (unknown) date) still have some unknown) visual hallucinations is a bit tremulous with (unknown) (no (unknown) (unknown) arms extended and (units (unknown) date) agitated. She unknown) denies any recent trauma or injury. (unknown) (no (unknown) (unknown) chief complaint of (units (unknown) date) withdrawal symptoms unknown) and was treated with Ativan and phenobarb (unknown) (no (unknown) (unknown) constipation, (units ( unknown) date) melena. unknown) (unknown) (no (unknown) (unknown) current (units (unkno wn) date) occupational unknown) exposures/hazards: Yes (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 with Pandemic ) (unknown) (no (unknown) (unknown) dizziness. (units (unk nown) date) unknown) (unknown) (no (unknown) (unknown) drink on (units (unknown) date) or Saturday and unknown) developed symptoms over the course of the (unknown) (no (unknown) (unknown) education level: (units (unknown) date) college unknown) (unknown) (no (unknown) (unknown) renee/zoroastrianism: (units (unknown) date) Buddhist unknown) (unknown) (no (unknown) (unknown) fluoxetine 10 mg (units (unknown) date) capsule 10 mg PO unknown) DAILY 07/13/22 07/13/22 (unknown) (no (unknown) (unknown) fluoxetine 10 mg (units (unknown) date) capsule unknown) (unknown) (no (unknown) (unknown) for the 2nd time (units (unknown) date) is many days. She unknown) had been seen and evaluated yesterday with a (unknown) (no (unknown) (unknown) hallucinations (units (unknown) date) that improved unknown) tremendously. She presents tonight and the (unknown) (no (unknown) (unknown) household members: (units (unknown) date) children unknown) (unknown) (no (unknown) (unknown) hydrocodone (units (un known) date) [HYDROCODONE] unknown) AdvReac Unknown VOMITING Verified 07/12/22 16:18 (unknown) (no (unknown) (unknown) hydroxyzine HCl 50 (units (unknown) date) mg tablet 50 mg PO unknown) DAILY 07/13/22 07/13/22 (unknown) (no (unknown) (unknown) hydroxyzine HCl 50 (units (unknown) date) mg tablet unknown) (unknown) (no (unknown) (unknown) icterus. No (units (un known) date) injection or unknown) drainage. (unknown) (no (unknown) (unknown) marital status: (units (unknown) date) unknown) (unknown) (no (unknown) (unknown) mcg tablet (units (unk nown) date) (Tab-A-Kael) unknown) (unknown) (no (unknown) (unknown) metoclopramide (units (unknown) date) Allergy Mild unknown) RASH/HIVES Verified 07/12/22 16:18 (unknown) (no (unknown) (unknown) mg tablet (units (unkn own) date) unknown) (unknown) (no (unknown) (unknown) mild distress. (units (unknown) date) Agitated a bit in unknown) distress, alert to person and place (unknown) (no (unknown) (unknown) multivitamin with (units (unknown) date) folic acid 400 1 unknown) tab PO DAILY #30 tabs 07/14/22 (unknown) (no (unknown) (unknown) multivitamin with (units (unknown) date) folic acid unknown) [Tab-A-Kael] 400 mcg Tablet (unknown) (no (unknown) (unknown) number of (units (unkn own) date) children: 1 unknown) (unknown) (no (unknown) (unknown) occupational (units (u nknown) date) status: employed unknown) (unknown) (no (unknown) (unknown) pantoprazole 40 mg (units (unknown) date) Tablet,Delayed unknown) Release (Dr/Ec) (unknown) (no (unknown) (unknown) pantoprazole 40 mg (units (unknown) date) tablet,delayed 40 unknown) mg PO 0700 #30 tabs 07/14/22 (unknown) (no (unknown) (unknown) presence of EMS (units (unknown) date) has there is a unknown) report that she had been found hallucinating and (unknown) (no (unknown) (unknown) quetiapine 300 mg (units (unknown) date) tablet 300 mg PO unknown) DAILY 07/13/22 07/13/22 (unknown) (no (unknown) (unknown) quetiapine 300 mg (units (unknown) date) tablet unknown) (unknown) (no (unknown) (unknown) rales, or rhonchi. (units (unknown) date) unknown) (unknown) (no (unknown) (unknown) rather well until (units (unknown) date) recently when she unknown) went on a bit of a [place] and had her last (unknown) (no (unknown) (unknown) release (units (unkno wn) date) unknown) (unknown) (no (unknown) (unknown) second hand (units (un known) date) exposure: No unknown) (growing up as a child - not currently) (unknown) (no (unknown) (unknown) special renee (units ( unknown) date) needs: No unknown) (unknown) (no (unknown) (unknown) substance use (units ( unknown) date) type: does not use unknown) (unknown) (no (unknown) (unknown) then jumped over a (units (unknown) date[place] On arrival patient is largely (unknown) (no (unknown) (unknown) thiamine (units (unkno wn) date) mononitrate (vit unknown) B1) 100 100 mg PO DAILY #30 tabs 07/14/22 (unknown) (no (unknown) (unknown) thiamine (units (unkno wn) date) mononitrate (vit unknown) B1) 100 mg Tablet (unknown) (no (unknown) (unknown) tonsillar (units (unkn own) date) hypertrophy or unknown) exudate. Airway patent. (unknown) (no (unknown) (unknown) was feeling quite (units (unknown) date) well and discharged unknown) home. She states that she had been doing (unknown) (no (unknown) (unknown) weekend. She (units (u nknown) date) presented yesterday unknown) with agitation and anxiety along with some (unknown) (no (unknown) (unknown) yelling at people (units (unknown) date) that were not unknown) there, maintaining that a smoker or bit her and Result panel 2403 (unknown) (no date) (unknown) (unknown) 1.1 (units unknown) (unknown) (unknown) (no date) (unknown) (unknown) 12.2 seconds (unkn own) Result panel 2404 (unknown) (no date) (unknown) (unknown) 0 /ul (unkn own) (unknown) (no date) (unknown) (unknown) 1.5 % (unkn own) (unknown) (no date) (unknown) (unknown) 100 /ul (unkn own) (unknown) (no date) (unknown) (unknown) 1000 /ul (unkn own) (unknown) (no date) (unknown) (unknown) 178 x10 3/ul (unkn own) (unknown) (no date) (unknown) (unknown) 19.7 % (unkn own) (unknown) (no date) (unknown) (unknown) 1900 /ul (unkn own) (unknown) (no date) (unknown) (unknown) 26.5 pg (unkn own) (unknown) (no date) (unknown) (unknown) 28.9 % (unkn own) (unknown) (no date) (unknown) (unknown) 29.3 % (unkn own) (unknown) (no date) (unknown) (unknown) 3.3 x10 3/ul (unkn own) (unknown) (no date) (unknown) (unknown) 3.59 x10 6/ul (unkn own) (unknown) (no date) (unknown) (unknown) 3.6 % (unkn own) (unknown) (no date) (unknown) (unknown) 300 /ul (unkn own) (unknown) (no date) (unknown) (unknown) 32.9 % (unkn own) (unknown) (no date) (unknown) (unknown) 57.6 % (unkn own) (unknown) (no date) (unknown) (unknown) 8.0 % (unkn own) (unknown) (no date) (unknown) (unknown) 80.6 fl (unkn own) (unknown) (no date) (unknown) (unknown) 9.5 g/dl (unkn own) Result panel 2405 (unknown) (no date) (unknown) (unknown) > 60 ml/min (unkn own) (unknown) (no date) (unknown) (unknown) > 60 ml/min (unkn own) (unknown) (no date) (unknown) (unknown) < 1.0 mg/dl (unkn own) (unknown) (no date) (unknown) (unknown) < 1.0 mg/dl (unkn own) (unknown) (no date) (unknown) (unknown) < 10 mg/dl (unkn own) (unknown) (no date) (unknown) (unknown) < 10 mg/dl (unkn own) (unknown) (no date) (unknown) (unknown) < 10 ug/ml (unkn own) (unknown) (no date) (unknown) (unknown) < 10 ug/ml (unkn own) (unknown) (no date) (unknown) (unknown) 0.7 mg/dl (unkn own) (unknown) (no date) (unknown) (unknown) 0.72 mg/dl (unkn own) (unknown) (no date) (unknown) (unknown) 1.5 (units unknown) (unknown) (unknown) (no date) (unknown) (unknown) 104 mmol/l (unkn own) (unknown) (no date) (unknown) (unknown) 136 mmol/l (unkn own) (unknown) (no date) (unknown) (unknown) 14 mg/dl (unkn own) (unknown) (no date) (unknown) (unknown) 19.4 (units unknown) (unknown) (unknown) (no date) (unknown) (unknown) 2.7 g/dl (unkn own) (unknown) (no date) (unknown) (unknown) 24 iu/l (unkn own) (unknown) (no date) (unknown) (unknown) 24 mmol/l (unkn own) (unknown) (no date) (unknown) (unknown) 3.5 mmol/l (unkn own) (unknown) (no date) (unknown) (unknown) 337 u/l (unkn own) (unknown) (no date) (unknown) (unknown) 4.1 g/dl (unkn own) (unknown) (no date) (unknown) (unknown) 52 u/l (unkn own) (unknown) (no date) (unknown) (unknown) 6.8 g/dl (unkn own) (unknown) (no date) (unknown) (unknown) 67 iu/l (unkn own) (unknown) (no date) (unknown) (unknown) 8.9 mg/dl (unkn own) (unknown) (no date) (unknown) (unknown) 99 mg/dl (unkn own) (unknown) (no date) (unknown) (unknown) 99 mg/dl (unkn own) Result panel 2406 (unknown) (no date) (unknown) (unknown) 1-5/HPF (units (unkn own) unknown) (unknown) (no date) (unknown) (unknown) 3 (units (unkn own) unknown) (unknown) (no date) (unknown) (unknown) 3 (units (unkn own) unknown) (unknown) (no date) (unknown) (unknown) 5-10 /HPF (units (unk nown) unknown) (unknown) (no date) (unknown) (unknown) Cult Not (units (unkn own) Indicated unknown) (unknown) (no date) (unknown) (unknown) Few (2-10) (units (un known) unknown) (unknown) (no date) (unknown) (unknown) None Seen (units (unk nown) unknown) (unknown) (no date) (unknown) (unknown) None Seen (units (unk nown) unknown) Result panel 2407 (unknown) (no date) (unknown) (unknown) Negative (units (unkn own) unknown) Result panel 2408 (unknown) (no date) (unknown) (unknown) Negative (units (unkn own) unknown) (unknown) (no date) (unknown) (unknown) Normal (units (unkn own) unknown) (unknown) (no date) (unknown) (unknown) Positive (units (unkn own) unknown) Result panel 2409 (unknown) (no (unknown) (unknown) (no value) (units (unk nown) date) unknown) (unknown) (no (unknown) (unknown) [id number] (units (unkn own) date) unknown) (unknown) (no (unknown) (unknown) 08/01/22 (units (unkno wn) date) unknown) (unknown) (no (unknown) (unknown) 1 tab PO DAILY (units (unknown) date) Qty: 30 0RF unknown) (unknown) (no (unknown) (unknown) 10 mg PO DAILY (units (unknown) date) unknown) (unknown) (no (unknown) (unknown) 100 mg PO DAILY (units (unknown) date) Qty: 30 0RF unknown) (unknown) (no (unknown) (unknown) 12 point review of (units (unknown) date) systems is negative unknown) except for those stated above (unknown) (no (unknown) (unknown) 300 mg PO DAILY (units (unknown) date) unknown) (unknown) (no (unknown) (unknown) 31-year-old female (units (unknown) date) former smoker with unknown) extensive history of alcohol abuse returns (unknown) (no (unknown) (unknown) 40 mg PO 0700 Qty: (units (unknown) date) 30 0RF unknown) (unknown) (no (unknown) (unknown) 50 mg PO DAILY (units (unknown) date) unknown) (unknown) (no (unknown) (unknown) Age/Sex: 31 / F (units (unknown) date) unknown) (unknown) (no (unknown) (unknown) Alcohol withdrawal (units (unknown) date) delirium, acute, unknown) hyperactive (unknown) (no (unknown) (unknown) Alcoholism (units (unk [...] gallops, or rubs. (unknown) (no (unknown) (unknown) CARDIOVASCULAR: (units (unknown) date) See HPI unknown) (unknown) (no (unknown) (unknown) CT head/brain wo (units (unknown) date) con Stat unknown) (unknown) (no (unknown) (unknown) Chief Complaint: (units (unknown) date) Psychiatric unknown) Symptoms (unknown) (no (unknown) (unknown) Course (units (unkno wn) date) unknown) (unknown) (no (unknown) (unknown) : 1990 (units (unknown) date) Acct:[id number] unknown) (unknown) (no (unknown) (unknown) Date of Service: (units (unknown) date) 08/01/22 unknown) (unknown) (no (unknown) (unknown) Departure (units [...] (unknown) date) edema or joint unknown) tenderness. Tremulous with arms extended (unknown) (no (unknown) (unknown) EYES: Pupils equal (units (unknown) date) round and reactive. unknown) Extraocular motions intact. No scleral (unknown) (no (unknown) (unknown) Emergency Report (units (unknown) date) unknown) (unknown) (no (unknown) (unknown) Exam Narrative: (units (unknown) date) unknown) (unknown) (no (unknown) (unknown) Exam (units (unkno wn) date) unknown) (unknown) (no (unknown) (unknown) Family History (units (unknown) date) (Reviewed 08/01/22 unknown) @ 06:02 by Reinaldo Arthur DO) (unknown) (no (unknown) (unknown) Family/Other (units (u nknown) date) Alcoholism unknown) (unknown) (no (unknown) (unknown) Family/Other (units (u nknown) date) Diabetes mellitus unknown) (unknown) (no (unknown) (unknown) Father Alcoholism (units (unknown) date) unknown) (unknown) (no (unknown) (unknown) Tonia Schneider MD (units (unknown) date) [Primary Care unknown) Provider] (unknown) (no (unknown) (unknown) GASTROINTESTINAL: (units (unknown) date) Abdomen soft, unknown) non-tender, nondistended. (unknown) (no (unknown) (unknown) GASTROINTESTINAL: (units (unknown) date) Denies nausea, unknown) vomiting, abdominal pain, diarrhea, (unknown) (no (unknown) (unknown) GENERAL: Denies (units (unknown) date) chills, fatigue, unknown) malaise, fever, sweats. (unknown) (no (unknown) (unknown) GENERAL: [31] year [...] swallowing, (unknown) (no (unknown) (unknown) HPI - Altered (units ( unknown) date) Mental Status unknown) (unknown) (no (unknown) (unknown) HPI narrative: (units (unknown) date) unknown) (unknown) (no (unknown) (unknown) History of Present (units (unknown) date) Illness unknown) (unknown) (no (unknown) (unknown) Home Medications (units (unknown) date) unknown) (unknown) (no (unknown) (unknown) Insomnia (units (unkno wn) date) unknown) (unknown) (no (unknown) (unknown) [facility] (units (unknown) date) [address] [place] [address] unknown) [place] [address] (unknown) (no (unknown) (unknown) MUSCULOSKELETAL: (units (unknown) date) denies weakness, unknown) joint pain, or bony pain (unknown) (no (unknown) (unknown) Medical History (units (unknown) date) (Reviewed 08/01/22 unknown) @ 06:02 by Reinaldo Arthur DO) (unknown) (no (unknown) [...] (unknown) NEURO: AOx3. (units (u nknown) date) Cranial nerves 2-12 unknown) grossly intact (unknown) (no (unknown) (unknown) NEUROLOGIC: See (units (unknown) date) HPI unknown) (unknown) (no (unknown) (unknown) Narrative (units (unkn own) date) unknown) (unknown) (no (unknown) (unknown) Narrative: (units (unk nown) date) unknown) (unknown) (no (unknown) (unknown) No Action (units (unkn own) date) unknown) (unknown) (no (unknown) (unknown) Obesity (units (unkno wn) date) unknown) (unknown) (no (unknown) (unknown) Ordered: (units (unkno wn) date) unknown) (unknown) (no (unknown) (unknown) Orders (units (unkno wn) date) unknown) (unknown) (no (unknown) (unknown) Overweight (units (unk nown) date) unknown) (unknown) (no (unknown) (unknown) PSYCHIATRIC: No (units (unknown) date) concerning unknown) psychosocial issues. (unknown) (no (unknown) (unknown) Patient History (units (unknown) date) unknown) (unknown) (no (unknown) (unknown) Patient: (units (unkno wn) date) Sarah Connors R unknown) MR#: M (unknown) (no (unknown) [...] (unknown) Social History (units (unknown) date) (Reviewed 08/01/22 unknown) @ 06:02 by Reinaldo Arthur DO) (unknown) (no (unknown) (unknown) Stated Complaint: (units (unknown) date) Altered LOC unknown) (unknown) (no (unknown) (unknown) Substance Use (units ( unknown) date) Type: does not use unknown) (unknown) (no (unknown) (unknown) Surgical History (units (unknown) date) (Reviewed 08/01/22 unknown) @ 06:02 by Reinaldo Arthur DO) (unknown) (no (unknown) (unknown) Time Seen by (units (u nknown) date) Provider: 08/01/22 unknown) 05:45 (unknown) (no (unknown) (unknown) [METOCLOPRAMIDE] (units (unknown) date) unknown) (unknown) (no (unknown) (unknown) alcohol intake (units (unknown) date) frequency: 3 or unknown) more drinks per day (unknown) (no (unknown) (unknown) alcohol intake: (units (unknown) date) former unknown) (unknown) (no (unknown) (unknown) alert but does (units (unknown) date) still have some unknown) visual hallucinations is a bit tremulous with (unknown) (no (unknown) (unknown) arms extended and (units (unknown) date) agitated. She unknown) denies any recent trauma or injury. (unknown) (no (unknown) (unknown) chief complaint of (units (unknown) date) withdrawal symptoms unknown) and was treated with Ativan and phenobarb (unknown) (no (unknown) (unknown) constipation, (units ( unknown) date) melena. unknown) (unknown) (no (unknown) (unknown) current (units (unkno wn) date) occupational unknown) exposures/hazards: Yes (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 with Pandemic ) (unknown) (no (unknown) (unknown) dizziness. (units (unk nown) date) unknown) (unknown) (no (unknown) (unknown) drink on (units (unknown) date) or Saturday and unknown) developed symptoms over the course of the (unknown) (no (unknown) (unknown) education level: (units (unknown) date) college unknown) (unknown) (no (unknown) (unknown) renee/zoroastrianism: (units (unknown) date) Buddhist unknown) (unknown) (no (unknown) (unknown) fluoxetine 10 mg (units (unknown) date) capsule 10 mg PO unknown) DAILY 07/13/22 07/13/22 (unknown) (no (unknown) (unknown) fluoxetine 10 mg (units (unknown) date) capsule unknown) (unknown) (no (unknown) (unknown) for the 2nd time (units (unknown) date) is many days. She unknown) had been seen and evaluated yesterday with a (unknown) (no (unknown) (unknown) hallucinations (units (unknown) date) that improved unknown) tremendously. She presents tonight and the (unknown) (no (unknown) (unknown) household members: (units (unknown) date) children unknown) (unknown) (no (unknown) (unknown) hydrocodone (units (un known) date) [HYDROCODONE] unknown) AdvReac Unknown VOMITING Verified 07/12/22 16:18 (unknown) (no (unknown) (unknown) hydroxyzine HCl 50 (units (unknown) date) mg tablet 50 mg PO unknown) DAILY 07/13/22 07/13/22 (unknown) (no (unknown) (unknown) hydroxyzine HCl 50 (units (unknown) date) mg tablet unknown) (unknown) (no (unknown) (unknown) icterus. No (units (un known) date) injection or unknown) drainage. (unknown) (no (unknown) (unknown) marital status: (units (unknown) date) unknown) (unknown) (no (unknown) (unknown) mcg tablet (units (unk nown) date) (Tab-A-Kael) unknown) (unknown) (no (unknown) (unknown) metoclopramide (units (unknown) date) Allergy Mild unknown) RASH/HIVES Verified 07/12/22 16:18 (unknown) (no (unknown) (unknown) mg tablet (units (unkn own) date) unknown) (unknown) (no (unknown) (unknown) mild distress. (units (unknown) date) Agitated a bit in unknown) distress, alert to person and place (unknown) (no (unknown) (unknown) multivitamin with (units (unknown) date) folic acid 400 1 unknown) tab PO DAILY #30 tabs 07/14/22 (unknown) (no (unknown) (unknown) multivitamin with (units (unknown) date) folic acid unknown) [Tab-A-Kael] 400 mcg Tablet (unknown) (no (unknown) (unknown) number of (units (unkn own) date) children: 1 unknown) (unknown) (no (unknown) (unknown) occupational (units (u nknown) date) status: employed unknown) (unknown) (no (unknown) (unknown) pantoprazole 40 mg (units (unknown) date) Tablet,Delayed unknown) Release (Dr/Ec) (unknown) (no (unknown) (unknown) pantoprazole 40 mg (units (unknown) date) tablet,delayed 40 unknown) mg PO 0700 #30 tabs 07/14/22 (unknown) (no (unknown) (unknown) presence of EMS (units (unknown) date) has there is a unknown) report that she had been found hallucinating and (unknown) (no (unknown) (unknown) quetiapine 300 mg (units (unknown) date) tablet 300 mg PO unknown) DAILY 07/13/22 07/13/22 (unknown) (no (unknown) (unknown) quetiapine 300 mg (units (unknown) date) tablet unknown) (unknown) (no (unknown) (unknown) rales, or rhonchi. (units (unknown) date) unknown) (unknown) (no (unknown) (unknown) rather well until (units (unknown) date) recently when she unknown) went on a bit of a [place] and had her last (unknown) (no (unknown) (unknown) release (units (unkno wn) date) unknown) (unknown) (no (unknown) (unknown) second hand (units (un known) date) exposure: No unknown) (growing up as a child - not currently) (unknown) (no (unknown) (unknown) special renee (units ( unknown) date) needs: No unknown) (unknown) (no (unknown) (unknown) substance use (units ( unknown) date) type: does not use unknown) (unknown) (no (unknown) (unknown) then jumped over a (units (unknown) date) [place] On arrival patient is largely (unknown) (no (unknown) (unknown) thiamine (units (unkno wn) date) mononitrate (vit unknown) B1) 100 100 mg PO DAILY #30 tabs 07/14/22 (unknown) (no (unknown) (unknown) thiamine (units (unkno wn) date) mononitrate (vit unknown) B1) 100 mg Tablet (unknown) (no (unknown) (unknown) tonsillar (units (unkn own) date) hypertrophy or unknown) exudate. Airway patent. (unknown) (no (unknown) (unknown) was feeling quite (units (unknown) date) well and discharged unknown) home. She states that she had been doing (unknown) (no (unknown) (unknown) weekend. She (units (u nknown) date) presented yesterday unknown) with agitation and anxiety along with some (unknown) (no (unknown) (unknown) yelling at people (units (unknown) date) that were not unknown) there, maintaining that a smoker or bit her and Result panel [id number] (unknown) (no (unknown) (unknown) (no value) (units (unk nown) date) unknown) (unknown) (no (unknown) (unknown) [id number] (units (unkn own) date) unknown) (unknown) (no (unknown) (unknown) 08/01/22 (units (unkno wn) date) unknown) (unknown) (no (unknown) (unknown) 1 tab PO DAILY (units (unknown) date) Qty: 30 0RF unknown) (unknown) (no (unknown) (unknown) 10 mg PO DAILY (units (unknown) date) unknown) (unknown) (no (unknown) (unknown) 100 mg PO DAILY (units (unknown) date) Qty: 30 0RF unknown) (unknown) (no (unknown) (unknown) 12 point review of (units (unknown) date) systems is negative unknown) except for those stated above (unknown) (no (unknown) (unknown) 300 mg PO DAILY (units (unknown) date) unknown) (unknown) (no (unknown) (unknown) 31-year-old female (units (unknown) date) former smoker with unknown) extensive history of alcohol abuse returns (unknown) (no (unknown) (unknown) 40 mg PO 0700 Qty: (units (unknown) date) 30 0RF unknown) (unknown) (no (unknown) (unknown) 50 mg PO DAILY (units (unknown) date) unknown) (unknown) (no (unknown) (unknown) Age/Sex: 31 / F (units (unknown) date) unknown) (unknown) (no (unknown) (unknown) Alcohol withdrawal (units (unknown) date) delirium, acute, unknown) hyperactive (unknown) (no (unknown) (unknown) Alcoholism (units (unk [...] gallops, or rubs. (unknown) (no (unknown) (unknown) CARDIOVASCULAR: (units (unknown) date) See HPI unknown) (unknown) (no (unknown) (unknown) CT head/brain wo (units (unknown) date) con Stat unknown) (unknown) (no (unknown) (unknown) Chief Complaint: (units (unknown) date) Psychiatric unknown) Symptoms (unknown) (no (unknown) (unknown) Course (units (unkno wn) date) unknown) (unknown) (no (unknown) (unknown) : 1990 (units (unknown) date) Acct:[id number] unknown) (unknown) (no (unknown) (unknown) Date of Service: (units (unknown) date) 08/01/22 unknown) (unknown) (no (unknown) (unknown) Departure (units [...] (unknown) date) edema or joint unknown) tenderness. Tremulous with arms extended (unknown) (no (unknown) (unknown) EYES: Pupils equal (units (unknown) date) round and reactive. unknown) Extraocular motions intact. No scleral (unknown) (no (unknown) (unknown) Emergency Report (units (unknown) date) unknown) (unknown) (no (unknown) (unknown) Exam Narrative: (units (unknown) date) unknown) (unknown) (no (unknown) (unknown) Exam (units (unkno wn) date) unknown) (unknown) (no (unknown) (unknown) Family History (units (unknown) date) (Reviewed 08/01/22 unknown) @ 06:02 by Reinaldo Arthur DO) (unknown) (no (unknown) (unknown) Family/Other (units (u nknown) date) Alcoholism unknown) (unknown) (no (unknown) (unknown) Family/Other (units (u nknown) date) Diabetes mellitus unknown) (unknown) (no (unknown) (unknown) Father Alcoholism (units (unknown) date) unknown) (unknown) (no (unknown) (unknown) Tonia Schenider MD (units (unknown) date) [Primary Care unknown) Provider] (unknown) (no (unknown) (unknown) GASTROINTESTINAL: (units (unknown) date) Abdomen soft, unknown) non-tender, nondistended. (unknown) (no (unknown) (unknown) GASTROINTESTINAL: (units (unknown) date) Denies nausea, unknown) vomiting, abdominal pain, diarrhea, (unknown) (no (unknown) (unknown) GENERAL: Denies (units (unknown) date) chills, fatigue, unknown) malaise, fever, sweats. (unknown) (no (unknown) (unknown) GENERAL: [31] year [...] swallowing, (unknown) (no (unknown) (unknown) HPI - Altered (units ( unknown) date) Mental Status unknown) (unknown) (no (unknown) (unknown) HPI narrative: (units (unknown) date) unknown) (unknown) (no (unknown) (unknown) History of Present (units (unknown) date) Illness unknown) (unknown) (no (unknown) (unknown) Home Medications (units (unknown) date) unknown) (unknown) (no (unknown) (unknown) Insomnia (units (unkno wn) date) unknown) (unknown) (no (unknown) (unknown) [facility] (units (unknown) date) [address] unknown) [place] [address] (unknown) (no (unknown) (unknown) MUSCULOSKELETAL: (units (unknown) date) denies weakness, unknown) joint pain, or bony pain (unknown) (no (unknown) (unknown) Medical History (units (unknown) date) (Reviewed 08/01/22 unknown) @ 06:02 by Reinaldo Arthur DO) (unknown) (no (unknown) [...] (unknown) NEURO: AOx3. (units (u nknown) date) Cranial nerves 2-12 unknown) grossly intact (unknown) (no (unknown) (unknown) NEUROLOGIC: See (units (unknown) date) HPI unknown) (unknown) (no (unknown) (unknown) Narrative (units (unkn own) date) unknown) (unknown) (no (unknown) (unknown) Narrative: (units (unk nown) date) unknown) (unknown) (no (unknown) (unknown) No Action (units (unkn own) date) unknown) (unknown) (no (unknown) (unknown) Obesity (units (unkno wn) date) unknown) (unknown) (no (unknown) (unknown) Ordered: (units (unkno wn) date) unknown) (unknown) (no (unknown) (unknown) Orders (units (unkno wn) date) unknown) (unknown) (no (unknown) (unknown) Overweight (units (unk nown) date) unknown) (unknown) (no (unknown) (unknown) PSYCHIATRIC: No (units (unknown) date) concerning unknown) psychosocial issues. (unknown) (no (unknown) (unknown) Patient History (units (unknown) date) unknown) (unknown) (no (unknown) (unknown) Patient: (units (unkno wn) date) Sarah Connors R unknown) MR#: M (unknown) (no (unknown) [...] (unknown) Social History (units (unknown) date) (Reviewed 08/01/22 unknown) @ 06:02 by Reinaldo Arthur DO) (unknown) (no (unknown) (unknown) Stated Complaint: (units (unknown) date) Altered LOC unknown) (unknown) (no (unknown) (unknown) Substance Use (units ( unknown) date) Type: does not use unknown) (unknown) (no (unknown) (unknown) Surgical History (units (unknown) date) (Reviewed 08/01/22 unknown) @ 06:02 by Reinaldo Arthur DO) (unknown) (no (unknown) (unknown) Time Seen by (units (u nknown) date) Provider: 08/01/22 unknown) 05:45 (unknown) (no (unknown) (unknown) [METOCLOPRAMIDE] (units (unknown) date) unknown) (unknown) (no (unknown) (unknown) alcohol intake (units (unknown) date) frequency: 3 or unknown) more drinks per day (unknown) (no (unknown) (unknown) alcohol intake: (units (unknown) date) former unknown) (unknown) (no (unknown) (unknown) alert but does (units (unknown) date) still have some unknown) visual hallucinations is a bit tremulous with (unknown) (no (unknown) (unknown) arms extended and (units (unknown) date) agitated. She unknown) denies any recent trauma or injury. (unknown) (no (unknown) (unknown) chief complaint of (units (unknown) date) withdrawal symptoms unknown) and was treated with Ativan and phenobarb (unknown) (no (unknown) (unknown) constipation, (units ( unknown) date) melena. unknown) (unknown) (no (unknown) (unknown) current (units (unkno wn) date) occupational unknown) exposures/hazards: Yes (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 with Pandemic ) (unknown) (no (unknown) (unknown) dizziness. (units (unk nown) date) unknown) (unknown) (no (unknown) (unknown) drink on (units (unknown) date) or Saturday and unknown) developed symptoms over the course of the (unknown) (no (unknown) (unknown) education level: (units (unknown) date) college unknown) (unknown) (no (unknown) (unknown) renee/zoroastrianism: (units (unknown) date) Buddhist unknown) (unknown) (no (unknown) (unknown) fluoxetine 10 mg (units (unknown) date) capsule 10 mg PO unknown) DAILY 07/13/22 07/13/22 (unknown) (no (unknown) (unknown) fluoxetine 10 mg (units (unknown) date) capsule unknown) (unknown) (no (unknown) (unknown) for the 2nd time (units (unknown) date) is many days. She unknown) had been seen and evaluated yesterday with a (unknown) (no (unknown) (unknown) hallucinations (units (unknown) date) that improved unknown) tremendously. She presents tonight and the (unknown) (no (unknown) (unknown) household members: (units (unknown) date) children unknown) (unknown) (no (unknown) (unknown) hydrocodone (units (un known) date) [HYDROCODONE] unknown) AdvReac Unknown VOMITING Verified 07/12/22 16:18 (unknown) (no (unknown) (unknown) hydroxyzine HCl 50 (units (unknown) date) mg tablet 50 mg PO unknown) DAILY 07/13/22 07/13/22 (unknown) (no (unknown) (unknown) hydroxyzine HCl 50 (units (unknown) date) mg tablet unknown) (unknown) (no (unknown) (unknown) icterus. No (units (un known) date) injection or unknown) drainage. (unknown) (no (unknown) (unknown) marital status: (units (unknown) date) unknown) (unknown) (no (unknown) (unknown) mcg tablet (units (unk nown) date) (Tab-A-Kael) unknown) (unknown) (no (unknown) (unknown) metoclopramide (units (unknown) date) Allergy Mild unknown) RASH/HIVES Verified 07/12/22 16:18 (unknown) (no (unknown) (unknown) mg tablet (units (unkn own) date) unknown) (unknown) (no (unknown) (unknown) mild distress. (units (unknown) date) Agitated a bit in unknown) distress, alert to person and place (unknown) (no (unknown) (unknown) multivitamin with (units (unknown) date) folic acid 400 1 unknown) tab PO DAILY #30 tabs 07/14/22 (unknown) (no (unknown) (unknown) multivitamin with (units (unknown) date) folic acid unknown) [Tab-A-Kael] 400 mcg Tablet (unknown) (no (unknown) (unknown) number of (units (unkn own) date) children: 1 unknown) (unknown) (no (unknown) (unknown) occupational (units (u nknown) date) status: employed unknown) (unknown) (no (unknown) (unknown) pantoprazole 40 mg (units (unknown) date) Tablet,Delayed unknown) Release (Dr/Ec) (unknown) (no (unknown) (unknown) pantoprazole 40 mg (units (unknown) date) tablet,delayed 40 unknown) mg PO 0700 #30 tabs 07/14/22 (unknown) (no (unknown) (unknown) presence of EMS (units (unknown) date) has there is a unknown) report that she had been found hallucinating and (unknown) (no (unknown) (unknown) quetiapine 300 mg (units (unknown) date) tablet 300 mg PO unknown) DAILY 07/13/22 07/13/22 (unknown) (no (unknown) (unknown) quetiapine 300 mg (units (unknown) date) tablet unknown) (unknown) (no (unknown) (unknown) rales, or rhonchi. (units (unknown) date) unknown) (unknown) (no (unknown) (unknown) rather well until (units (unknown) date) recently when she unknown) went on a bit of a [place] and had her last (unknown) (no (unknown) (unknown) release (units (unkno wn) date) unknown) (unknown) (no (unknown) (unknown) second hand (units (un known) date) exposure: No unknown) (growing up as a child - not currently) (unknown) (no (unknown) (unknown) special renee (units ( unknown) date) needs: No unknown) (unknown) (no (unknown) (unknown) substance use (units ( unknown) date) type: does not use unknown) (unknown) (no (unknown) (unknown) then jumped over a (units (unknown) date) [place] On arrival patient is largely (unknown) (no (unknown) (unknown) thiamine (units (unkno wn) date) mononitrate (vit unknown) B1) 100 100 mg PO DAILY #30 tabs 07/14/22 (unknown) (no (unknown) (unknown) thiamine (units (unkno wn) date) mononitrate (vit unknown) B1) 100 mg Tablet (unknown) (no (unknown) (unknown) tonsillar (units (unkn own) date) hypertrophy or unknown) exudate. Airway patent. (unknown) (no (unknown) (unknown) was feeling quite (units (unknown) date) well and discharged unknown) home. She states that she had been doing (unknown) (no (unknown) (unknown) weekend. She (units (u nknown) date) presented yesterday unknown) with agitation and anxiety along with some (unknown) (no (unknown) (unknown) yelling at people (units (unknown) date) that were not unknown) there, maintaining that a smoker or bit her and Result panel [id number] (unknown) (no (unknown) (unknown) (no value) (units (unk nown) date) unknown) (unknown) (no (unknown) (unknown) (past 8 hours): (units (unknown) date) unknown) (unknown) (no (unknown) (unknown) [id number] (units (unkn own) date) unknown) (unknown) (no (unknown) (unknown) 08/01/22 08/01/22 (units (unknown) date) 08/01/22 unknown) (unknown) (no (unknown) (unknown) 08/01/22 05:10 (units (unknown) date) unknown) (unknown) (no (unknown) (unknown) 08/01/22 (units (unkno wn) date) unknown) (unknown) (no (unknown) (unknown) 05:00 08/01/22 (units (unknown) date) unknown) (unknown) (no (unknown) (unknown) 05:10 05:10 05:10 (units (unknown) date) unknown) (unknown) (no (unknown) (unknown) 05:20 05:20 05:20 (units (unknown) date) unknown) (unknown) (no (unknown) (unknown) 07:44 (units (unkno wn) date) unknown) (unknown) (no (unknown) (unknown) ALT 24 (units (unkno wn) date) unknown) (unknown) (no (unknown) (unknown) ALT (units (unkno wn) date) unknown) (unknown) (no (unknown) (unknown) AST 67 H (units (unkno wn) date) unknown) (unknown) (no (unknown) (unknown) AST (units (unkno wn) date) unknown) (unknown) (no (unknown) (unknown) Acetaminophen < 10 (units (unknown) date) unknown) (unknown) (no (unknown) (unknown) Acetaminophen (units ( unknown) date) unknown) (unknown) (no (unknown) (unknown) Age/Sex: 31 / F (units (unknown) date) unknown) (unknown) (no (unknown) (unknown) Albumin 4.1 (units (un known) date) unknown) (unknown) (no (unknown) (unknown) Albumin (units (unkno wn) date) unknown) (unknown) (no (unknown) (unknown) Albumin/Globulin (units (unknown) date) Ratio 1.5 unknown) (unknown) (no (unknown) (unknown) Albumin/Globulin (units (unknown) date) Ratio unknown) (unknown) (no (unknown) (unknown) Alcohol withdrawal (units (unknown) date) delirium, acute, unknown) hyperactive (unknown) (no (unknown) (unknown) Alcoholism (units (unk nown) date) unknown) (unknown) (no (unknown) (unknown) Alkaline (units (unkno wn) date) Phosphatase 52 unknown) (unknown) (no (unknown) (unknown) Alkaline (units (unkno wn) date) Phosphatase unknown) (unknown) (no (unknown) (unknown) Allergies (units (unkn own) date) unknown) (unknown) (no (unknown) (unknown) Allergy/AdvReac (units (unknown) date) Type Severity unknown) Reaction Status Date / Time (unknown) (no (unknown) (unknown) Anemia (-2018) (units (unknown) date) unknown) (unknown) (no (unknown) (unknown) Assessment + Plan (units (unknown) date) unknown) (unknown) (no (unknown) (unknown) BUN 14 (units (unkno wn) date) unknown) (unknown) (no (unknown) (unknown) BUN (units (unkno wn) date) unknown) (unknown) (no (unknown) (unknown) BUN/Creatinine (units (unknown) date) Ratio 19.4 unknown) (unknown) (no (unknown) (unknown) BUN/Creatinine (units (unknown) date) Ratio unknown) (unknown) (no (unknown) (unknown) Baso # (Auto) 0 (units (unknown) date) unknown) (unknown) (no (unknown) (unknown) Baso # (Auto) (units ( unknown) date) unknown) (unknown) (no (unknown) (unknown) Baso % (Auto) 1.5 (units (unknown) date) unknown) (unknown) (no (unknown) (unknown) Baso % (Auto) (units ( unknown) date) unknown) (unknown) (no (unknown) (unknown) Blood Pressure (units (unknown) date) 92/67 98/53 L unknown) (unknown) (no (unknown) (unknown) Calcium 8.9 (units (un known) date) unknown) (unknown) (no (unknown) (unknown) Calcium (units (unkno wn) date) unknown) (unknown) (no (unknown) (unknown) Carbon Dioxide 24 (units (unknown) date) unknown) (unknown) (no (unknown) (unknown) Carbon Dioxide (units (unknown) date) unknown) (unknown) (no (unknown) (unknown) Chief complaint: (units (unknown) date) Altered LOC unknown) (unknown) (no (unknown) (unknown) Chloride 104 (units (u nknown) date) unknown) (unknown) (no (unknown) (unknown) Chloride (units (unkno wn) date) unknown) (unknown) (no (unknown) (unknown) Creatinine 0.72 (units (unknown) date) unknown) (unknown) (no (unknown) (unknown) Creatinine (units (unk nown) date) unknown) (unknown) (no (unknown) (unknown) Critical Care (units ( unknown) date) time: unknown) (unknown) (no (unknown) (unknown) : 1990 (units (unknown) date) Acct:[id number] unknown) (unknown) (no (unknown) (unknown) Date Patient Seen: (units (unknown) date) 08/01/22 unknown) (unknown) (no (unknown) (unknown) Date of Service: (units (unknown) date) 08/01/22 unknown) (unknown) (no (unknown) (unknown) Eos # (Auto) 100 (units (unknown) date) unknown) (unknown) (no (unknown) (unknown) Eos # (Auto) (units (u nknown) date) unknown) (unknown) (no (unknown) (unknown) Eos % (Auto) 3.6 (units (unknown) date) unknown) (unknown) (no (unknown) (unknown) Eos % (Auto) (units (u nknown) date) unknown) (unknown) (no (unknown) (unknown) Estimated GFR > 60 (units (unknown) date) unknown) (unknown) (no (unknown) (unknown) Estimated GFR (units ( unknown) date) unknown) (unknown) (no (unknown) (unknown) Ethyl Alcohol < 10 (units (unknown) date) unknown) (unknown) (no (unknown) (unknown) Ethyl Alcohol (units ( unknown) date) unknown) (unknown) (no (unknown) (unknown) Exam (units (unkno wn) date) unknown) (unknown) (no (unknown) (unknown) Family + Social (units (unknown) date) History unknown) (unknown) (no (unknown) (unknown) Family History (units (unknown) date) (Reviewed 08/01/22 unknown) @ 06:02 by Reinaldo Arthur DO) (unknown) (no (unknown) (unknown) Family/Other (units (u nknown) date) Alcoholism unknown) (unknown) (no (unknown) (unknown) Family/Other (units (u nknown) date) Diabetes mellitus unknown) (unknown) (no (unknown) (unknown) Father Alcoholism (units (unknown) date) unknown) (unknown) (no (unknown) (unknown) Globulin 2.7 (units (u nknown) date) unknown) (unknown) (no (unknown) (unknown) Globulin (units (unkno wn) date) unknown) (unknown) (no (unknown) (unknown) Glucose 99 (units (unk nown) date) unknown) (unknown) (no (unknown) (unknown) Glucose (units (unkno wn) date) unknown) (unknown) (no [...] extraction () unknown) (unknown) (no (unknown) (unknown) Hct 28.9 L (units (unk nown) date) unknown) (unknown) (no (unknown) (unknown) Hct (units (unkno wn) date) unknown) (unknown) (no (unknown) (unknown) Hgb 9.5 L (units (unkn own) date) unknown) (unknown) (no (unknown) (unknown) Hgb (units (unkno wn) date) unknown) (unknown) (no (unknown) (unknown) History + Physical (units (unknown) date) Report unknown) (unknown) (no (unknown) (unknown) History of Present (units (unknown) date) Illness unknown) (unknown) (no (unknown) (unknown) Home Medications (units (unknown) date) and Allergies unknown) (unknown) (no (unknown) (unknown) Home Medications (units (unknown) date) unknown) (unknown) (no (unknown) (unknown) I spent a total of (units (unknown) date) [] minutes of unknown) critical care time on this patient's care (unknown) (no (unknown) (unknown) INR 1.1 (units (unkno wn) date) unknown) (unknown) (no (unknown) (unknown) INR (units (unkno wn) date) unknown) (unknown) (no (unknown) (unknown) Insomnia (units (unkno wn) date) unknown) (unknown) (no (unknown) (unknown) [facility] (units (unknown) date) [address] unknown) [place] [address] (unknown) (no (unknown) (unknown) Laboratory Results (units (unknown) date) - last 24 hr unknown) (unknown) (no (unknown) (unknown) Labs (units (unkno wn) date) unknown) (unknown) (no (unknown) (unknown) Labs: (units (unkno wn) date) unknown) (unknown) (no (unknown) (unknown) Lipase 337 H (units (u nknown) date) unknown) (unknown) (no (unknown) (unknown) Lipase (units (unkno wn) date) unknown) (unknown) (no (unknown) (unknown) Lymph # (Auto) (units (unknown) date) 1000 L unknown) (unknown) (no (unknown) (unknown) Lymph # (Auto) (units (unknown) date) unknown) (unknown) (no (unknown) (unknown) Lymph % (Auto) (units (unknown) date) 29.3 unknown) (unknown) (no (unknown) (unknown) Lymph % (Auto) (units (unknown) date) unknown) (unknown) (no (unknown) (unknown) MCH 26.5 (units (unkno wn) date) unknown) (unknown) (no (unknown) (unknown) MCH (units (unkno wn) date) unknown) (unknown) (no (unknown) (unknown) MCHC 32.9 (units (unkn own) date) unknown) (unknown) (no (unknown) (unknown) MCHC (units (unkno wn) date) unknown) (unknown) (no (unknown) (unknown) MCV 80.6 (units (unkno wn) date) unknown) (unknown) (no (unknown) (unknown) MCV (units (unkno wn) date) unknown) (unknown) (no (unknown) (unknown) Medical History (units (unknown) date) (Reviewed 08/01/22 unknown) @ 06:02 by Reinaldo Arthur DO) (unknown) (no (unknown) (unknown) Medication (units (unk nown) date) Instructions unknown) Recorded Confirmed Type (unknown) (no (unknown) (unknown) Meds (units (unkno wn) date) unknown) (unknown) (no (unknown) (unknown) Menometrorrhagia (units (unknown) date) unknown) (unknown) (no (unknown) (unknown) Yates # (Auto) 300 (units (unknown) date) unknown) (unknown) (no (unknown) (unknown) Yates # (Auto) (units ( unknown) date) unknown) (unknown) (no (unknown) (unknown) Yates % (Auto) 8.0 (units (unknown) date) unknown) (unknown) (no (unknown) (unknown) Yates % (Auto) (units ( unknown) date) unknown) (unknown) (no (unknown) (unknown) Mother Diabetes (units (unknown) date) mellitus unknown) (unknown) (no (unknown) (unknown) Neut # (Auto) 1900 (units (unknown) date) unknown) (unknown) (no (unknown) (unknown) Neut # (Auto) (units ( unknown) date) unknown) (unknown) (no (unknown) (unknown) Neut % (Auto) 57.6 (units (unknown) date) unknown) (unknown) (no (unknown) (unknown) Neut % (Auto) (units ( unknown) date) unknown) (unknown) (no (unknown) (unknown) Obesity (units (unkno wn) date) unknown) (unknown) (no (unknown) (unknown) Objective (units (unkn own) date) unknown) (unknown) (no (unknown) (unknown) Overweight (units (unk nown) date) unknown) (unknown) (no (unknown) (unknown) Oxygen Delivery (units (unknown) date) Method Room Air unknown) Room Air (unknown) (no (unknown) (unknown) Oxygen Delivery (units (unknown) date) Method Room Air unknown) (unknown) (no (unknown) (unknown) PT 12.2 (units (unkno wn) date) unknown) (unknown) (no (unknown) (unknown) PT (units (unkno wn) date) unknown) (unknown) (no (unknown) (unknown) Patient History (units (unknown) date) unknown) (unknown) (no (unknown) (unknown) Patient: (units (unkno wn) date) Sarah Connors R unknown) MR#: M (unknown) (no (unknown) (unknown) Plt Count 178 (units ( unknown) date) unknown) (unknown) (no (unknown) (unknown) Plt Count (units (unkn own) date) unknown) (unknown) (no (unknown) (unknown) Potassium 3.5 (units ( unknown) date) unknown) (unknown) (no (unknown) (unknown) Potassium (units (unkn own) date) unknown) (unknown) (no (unknown) (unknown) Provider: (units (unkn own) date) Jabari Sena unknown) D.O. (unknown) (no (unknown) (unknown) Pulse Oximetry 98 (units (unknown) date) 98 unknown) (unknown) (no (unknown) (unknown) Pulse Rate 76 65 (units (unknown) date) unknown) (unknown) (no (unknown) (unknown) RBC 3.59 L (units (unk nown) date) unknown) (unknown) (no (unknown) (unknown) RBC (units (unkno wn) date) unknown) (unknown) (no (unknown) (unknown) RDW 19.7 H (units (unk nown) date) unknown) (unknown) (no (unknown) (unknown) RDW (units (unkno wn) date) unknown) (unknown) (no (unknown) (unknown) Respiratory Rate (units (unknown) date) 18 20 unknown) (unknown) (no (unknown) (unknown) S/P myringotomy (units (unknown) date) with insertion of unknown) tube (unknown) (no (unknown) (unknown) (spontaneous (units (unknown) date) vaginal delivery) unknown) (-09/05/18) (unknown) (no (unknown) (unknown) Safety + (units (unkno wn) date) Behavioral: unknown) (unknown) (no (unknown) (unknown) Salicylates < 1.0 (units (unknown) date) unknown) (unknown) (no (unknown) (unknown) Salicylates (units (un known) date) unknown) (unknown) (no (unknown) (unknown) Signed By: (units (unk nown) date) unknown) (unknown) (no (unknown) (unknown) Smoker (units (unkno wn) date) unknown) (unknown) (no (unknown) (unknown) Smoking Status (units (unknown) date) Former smoker unknown) (unknown) (no (unknown) (unknown) Social History: (units (unknown) date) unknown) (unknown) (no (unknown) (unknown) Sodium 136 L (units (u nknown) date) unknown) (unknown) (no (unknown) (unknown) Sodium (units (unkno wn) date) unknown) (unknown) (no (unknown) (unknown) Substance Use Type (units (unknown) date) does not use unknown) (unknown) (no (unknown) (unknown) Suicidal Ideation (units (unknown) date) Description None unknown) (unknown) (no (unknown) (unknown) Suicide Plan (units (u nknown) date) Description No Plan unknown) (unknown) (no (unknown) (unknown) Surgical History (units (unknown) date) (Reviewed 08/01/22 unknown) @ 06:02 by Reinaldo Arthur DO) (unknown) (no (unknown) (unknown) Temperature 97.7 F (units (unknown) date) unknown) (unknown) (no (unknown) (unknown) Time Spent With (units (unknown) date) Patient unknown) (unknown) (no (unknown) (unknown) Tobacco + (units (unkn own) date) Substance use: unknown) (unknown) (no (unknown) (unknown) Tobacco type (units (u nknown) date) cigarettes unknown) (unknown) (no (unknown) (unknown) Total Bilirubin (units (unknown) date) 0.7 unknown) (unknown) (no (unknown) (unknown) Total Bilirubin (units (unknown) date) unknown) (unknown) (no (unknown) (unknown) Total Protein 6.8 (units (unknown) date) unknown) (unknown) (no (unknown) (unknown) Total Protein (units ( unknown) date) unknown) (unknown) (no (unknown) (unknown) U Benzodiazepines (units (unknown) date) Scrn Positive H unknown) (unknown) (no (unknown) (unknown) U Benzodiazepines (units (unknown) date) Scrn unknown) (unknown) (no (unknown) (unknown) U Marijuana (THC) (units (unknown) date) Screen Negative unknown) (unknown) (no (unknown) (unknown) U Marijuana (THC) (units (unknown) date) Screen unknown) (unknown) (no (unknown) (unknown) U Methamphetamines (units (unknown) date) Scrn Negative unknown) (unknown) (no (unknown) (unknown) U Methamphetamines (units (unknown) date) Scrn unknown) (unknown) (no (unknown) (unknown) U Opiates 300ng/mL (units (unknown) date) cut Negative unknown) (unknown) (no (unknown) (unknown) U Opiates 300ng/mL (units (unknown) date) cut unknown) (unknown) (no (unknown) (unknown) U Tricyclic (units (un known) date) Antidepress unknown) Positive H (unknown) (no (unknown) (unknown) U Tricyclic (units (un known) date) Antidepress unknown) (unknown) (no (unknown) (unknown) Ur Amphetamines (units (unknown) date) Screen Negative unknown) (unknown) (no (unknown) (unknown) Ur Amphetamines (units (unknown) date) Screen unknown) (unknown) (no (unknown) (unknown) Ur Barbiturates (units (unknown) date) Screen Positive H unknown) (unknown) (no (unknown) (unknown) Ur Barbiturates (units (unknown) date) Screen unknown) (unknown) (no (unknown) (unknown) Ur Bilirubin (units (u nknown) date) Confirm Negative unknown) (unknown) (no (unknown) (unknown) Ur Bilirubin (units (u nknown) date) Confirm unknown) (unknown) (no (unknown) (unknown) Ur Culture (units (unk nown) date) Indicated? Cult not unknown) indicated (unknown) (no (unknown) (unknown) Ur Culture (units (unk nown) date) Indicated? unknown) (unknown) (no (unknown) (unknown) Ur MDMA Scrn (units (u nknown) date) (Ecstasy) Negative unknown) (unknown) (no (unknown) (unknown) Ur MDMA Scrn (units (u nknown) date) (Ecstasy) unknown) (unknown) (no (unknown) (unknown) Ur Oxycodone (units (u nknown) date) Screen Negative unknown) (unknown) (no (unknown) (unknown) Ur Oxycodone (units (u nknown) date) Screen unknown) (unknown) (no (unknown) (unknown) Ur Phencyclidine (units (unknown) date) Scrn Negative unknown) (unknown) (no (unknown) (unknown) Ur Phencyclidine (units (unknown) date) Scrn unknown) (unknown) (no (unknown) (unknown) Ur Squamous Epith (units (unknown) date) Cells 5-10 /hpf H unknown) (unknown) (no (unknown) (unknown) Ur Squamous Epith (units (unknown) date) Cells unknown) (unknown) (no (unknown) (unknown) Urine Bacteria Few (units (unknown) date) (2-10) H unknown) (unknown) (no (unknown) (unknown) Urine Bacteria (units (unknown) date) unknown) (unknown) (no (unknown) (unknown) Urine Cocaine (units ( unknown) date) Screen Negative unknown) (unknown) (no (unknown) (unknown) Urine Cocaine (units ( unknown) date) Screen unknown) (unknown) (no (unknown) (unknown) Urine Methadone (units (unknown) date) Screen Negative unknown) (unknown) (no (unknown) (unknown) Urine Methadone (units (unknown) date) Screen unknown) (unknown) (no (unknown) (unknown) Urine Mucus 3+ H D (units (unknown) date) unknown) (unknown) (no (unknown) (unknown) Urine Mucus (units (un known) date) unknown) (unknown) (no (unknown) (unknown) Urine RBC None (units (unknown) date) seen unknown) (unknown) (no (unknown) (unknown) Urine RBC (units (unkn own) date) unknown) (unknown) (no (unknown) (unknown) Urine WBC 1-5/hpf (units (unknown) date) unknown) (unknown) (no (unknown) (unknown) Urine WBC (units (unkn own) date) unknown) (unknown) (no (unknown) (unknown) Vital Signs (units (un known) date) unknown) (unknown) (no (unknown) (unknown) WBC 3.3 L (units (unkn own) date) unknown) (unknown) (no (unknown) (unknown) WBC (units (unkno wn) date) unknown) (unknown) (no (unknown) (unknown) [Embedded Image (units (unknown) date) Not Available] unknown) (unknown) (no (unknown) (unknown) [METOCLOPRAMIDE] (units (unknown) date) unknown) (unknown) (no (unknown) (unknown) alcohol intake (units (unknown) date) former unknown) (unknown) (no (unknown) (unknown) alcohol intake (units (unknown) date) frequency 3 or more unknown) drinks per day (unknown) (no (unknown) (unknown) fluoxetine 10 mg (units (unknown) date) capsule 10 mg PO unknown) DAILY 07/13/22 07/13/22 History (unknown) (no (unknown) (unknown) household members (units (unknown) date) children unknown) (unknown) (no (unknown) (unknown) hydrocodone (units (un known) date) [HYDROCODONE] unknown) AdvReac Unknown VOMITING Verified 07/12/22 16:18 (unknown) (no (unknown) (unknown) hydroxyzine HCl 50 (units (unknown) date) mg tablet 50 mg PO unknown) DAILY 07/13/22 07/13/22 History (unknown) (no (unknown) (unknown) mcg tablet (units (unk nown) date) (Tab-A-Kael) unknown) (unknown) (no (unknown) (unknown) metoclopramide (units (unknown) date) Allergy Mild unknown) RASH/HIVES Verified 07/12/22 16:18 (unknown) (no (unknown) (unknown) mg tablet (units (unkn own) date) unknown) (unknown) (no (unknown) (unknown) multivitamin with (units (unknown) date) folic acid 400 1 unknown) tab PO DAILY #30 tabs 07/14/22 Rx (unknown) (no (unknown) (unknown) pantoprazole 40 mg (units (unknown) date) tablet,delayed 40 unknown) mg PO 0700 #30 tabs 07/14/22 Rx (unknown) (no (unknown) (unknown) quetiapine 300 mg (units (unknown) date) tablet 300 mg PO unknown) DAILY 07/13/22 07/13/22 History (unknown) (no (unknown) (unknown) release (units (unkno wn) date) unknown) (unknown) (no (unknown) (unknown) thiamine (units (unkno wn) date) mononitrate (vit unknown) B1) 100 100 mg PO DAILY #30 tabs 07/14/22 Rx (unknown) (no (unknown) (unknown) today; this time (units (unknown) date) is exclusive of unknown) procedural time. Result panel [id number] (unknown) (no (unknown) (unknown) (no value) (units (unk nown) date) unknown) (unknown) (no (unknown) (unknown) <Electronically (units (unknown) date) signed by Will west) Cayden BenitezOForest> (unknown) (no (unknown) (unknown) <Reinaldo Arthur DO (units (unknown) date) - Last Filed: unknown) 08/01/22 06:03> (unknown) (no (unknown) (unknown) <Will Benitez, (units (unknown) date) - Last Filed: unknown) 08/01/22 08:19> (unknown) (no (unknown) (unknown) [id number] (units (unkn own) date) unknown) (unknown) (no (unknown) (unknown) 08/01/22 08/01/22 (units (unknown) date) 08/01/22 unknown) Range/Units (unknown) (no (unknown) (unknown) 08/01/22 05:10 (units (unknown) date) unknown) (unknown) (no (unknown) (unknown) 08/01/22 05:20 (units (unknown) date) unknown) (unknown) (no (unknown) (unknown) 08/01/22 07:42 (units (unknown) date) unknown) (unknown) (no (unknown) (unknown) 08/01/22 0819 (units ( unknown) date) unknown) (unknown) (no (unknown) (unknown) 08/01/22 08:05 (units (unknown) date) unknown) (unknown) (no (unknown) (unknown) 08/01/22 08:13 (units (unknown) date) unknown) (unknown) (no (unknown) (unknown) 08/01/22 (units (unkno wn) date) unknown) (unknown) (no (unknown) (unknown) 08/02/22 05:00 (units (unknown) date) unknown) (unknown) (no (unknown) (unknown) 08/03/22 05:00 (units (unknown) date) unknown) (unknown) (no (unknown) (unknown) 08/04/22 05:00 (units (unknown) date) unknown) (unknown) (no (unknown) (unknown) 05:00 08/01/22 (units (unknown) date) unknown) (unknown) (no (unknown) (unknown) 05:10 05:10 05:10 (units (unknown) date) unknown) (unknown) (no (unknown) (unknown) 05:20 05:20 05:20 (units (unknown) date) unknown) (unknown) (no (unknown) (unknown) 07:44 (units (unkno wn) date) unknown) (unknown) (no (unknown) (unknown) 12 point review of (units (unknown) date) systems is negative unknown) except for those stated above (unknown) (no (unknown) (unknown) 2.0 mg/dl (unkno wn) date) (unknown) (no (unknown) (unknown) 2.0 mg/dl (unkno wn) date) (unknown) (no (unknown) (unknown) 31-year-old female (units (unknown) date) former smoker with unknown) extensive history of alcohol abuse returns (unknown) (no (unknown) (unknown) ALT (<35) IU/L (units (unknown) date) unknown) (unknown) (no (unknown) (unknown) ALT 24 (<35) IU/L (units (unknown) date) unknown) (unknown) (no (unknown) (unknown) AST (14-36) IU/L (units (unknown) date) unknown) (unknown) (no (unknown) (unknown) AST 67 H (14-36) (units (unknown) date) IU/L unknown) (unknown) (no (unknown) (unknown) Acetaminophen < 10 (units (unknown) date) (10-30) ug/mL unknown) (unknown) (no (unknown) (unknown) Acetaminophen (units ( unknown) date) (10-30) ug/mL unknown) (unknown) (no (unknown) (unknown) Acetaminophen (units ( unknown) date) (Acetaminophen 325 unknown) Mg Tablet) 650 mg PO Q6H PRN (unknown) (no (unknown) (unknown) Acetaminophen Stat (units (unknown) date) unknown) (unknown) (no (unknown) (unknown) Admin: 08/01/22 (units (unknown) date) 06:30 Dose: 1,000 unknown) mls/hr (unknown) (no (unknown) (unknown) Admin: 08/01/22 (units (unknown) date) 07:45 Dose: 408 unknown) mls/hr (unknown) (no (unknown) (unknown) Age/Sex: 31 / F (units (unknown) date) unknown) (unknown) (no (unknown) (unknown) Albumin (3.5-5.0) (units (unknown) date) g/dL unknown) (unknown) (no (unknown) (unknown) Albumin 4.1 (units (un known) date) (3.5-5.0) g/dL unknown) (unknown) (no (unknown) (unknown) Albumin/Globulin (units (unknown) date) Ratio (1.0-2.8) unknown) (unknown) (no (unknown) (unknown) Albumin/Globulin (units (unknown) date) Ratio 1.5 (1.0-2.8) unknown) (unknown) (no (unknown) (unknown) Alcohol withdrawal (units (unknown) date) delirium, acute, unknown) hyperactive (unknown) (no (unknown) (unknown) Alcohol (units (unkno wn) date) withdrawal, Alcohol unknown) use disorder (unknown) (no (unknown) (unknown) Alcoholism (units (unk nown) date) unknown) (unknown) (no (unknown) (unknown) Alkaline (units (unkno wn) date) Phosphatase unknown) (38-126) U/L (unknown) (no (unknown) (unknown) Alkaline (units (unkno wn) date) Phosphatase 52 unknown) (38-126) U/L (unknown) (no (unknown) (unknown) Allergies (units (unkn own) date) unknown) (unknown) (no (unknown) (unknown) Allergy/AdvReac (units (unknown) date) Type Severity unknown) Reaction Status Date / Time (unknown) (no (unknown) (unknown) Anemia (-2018) (units (unknown) date) unknown) (unknown) (no (unknown) (unknown) BACK: Nontender (units (unknown) date) without deformity unknown) or crepitance. No flank tenderness. (unknown) (no (unknown) (unknown) BMP [Basic (units (unk nown) date) Metabolic Panel] unknown) DAILY (unknown) (no (unknown) (unknown) BUN (7-17) mg/dL (units (unknown) date) unknown) (unknown) (no (unknown) (unknown) BUN 14 (7-17) (units ( unknown) date) mg/dL unknown) (unknown) (no (unknown) (unknown) BUN/Creatinine (units (unknown) date) Ratio (6-22) unknown) (unknown) (no (unknown) (unknown) BUN/Creatinine (units (unknown) date) Ratio 19.4 (6-22) unknown) (unknown) (no (unknown) (unknown) Baso # (Auto) (units ( unknown) date) (0-100) /uL unknown) (unknown) (no (unknown) (unknown) Baso # (Auto) 0 (units (unknown) date) (0-100) /uL unknown) (unknown) (no (unknown) (unknown) Baso % (Auto) (units ( unknown) date) (0-2) % unknown) (unknown) (no (unknown) (unknown) Baso % (Auto) 1.5 (units (unknown) date) (0-2) % unknown) (unknown) (no (unknown) (unknown) Bedside Urine (units ( unknown) date) Bilirubin + 1 unknown) (unknown) (no (unknown) (unknown) Bedside Urine (units ( unknown) date) Glucose Negative unknown) (unknown) (no (unknown) (unknown) Bedside Urine (units ( unknown) date) Ketone +/- 5 unknown) (unknown) (no (unknown) (unknown) Bedside Urine (units ( unknown) date) Leukocytes - unknown) Negative (unknown) (no (unknown) (unknown) Bedside Urine (units ( unknown) date) Nitrite - Negative unknown) (unknown) (no (unknown) (unknown) Bedside Urine (units ( unknown) date) Occult Blood - unknown) Negative (unknown) (no (unknown) (unknown) Bedside Urine (units ( unknown) date) Protein +/- 15 unknown) (unknown) (no (unknown) (unknown) Bedside Urine (units ( unknown) date) Urobilinogen - unknown) Negative (unknown) (no (unknown) (unknown) Bedside Urine pH (units (unknown) date) 6.0 unknown) (unknown) (no (unknown) (unknown) Blood Pressure (units (unknown) date) 08/01/22 unknown) 05:00 (unknown) (no (unknown) (unknown) Blood Pressure (units (unknown) date) 98/53 L unknown) (unknown) (no (unknown) (unknown) CARDIOVASCULAR: (units (unknown) date) Regular rate and unknown) rhythm without murmurs, gallops, or rubs. (unknown) (no (unknown) (unknown) CARDIOVASCULAR: (units (unknown) date) See HPI unknown) (unknown) (no (unknown) (unknown) CBC Auto Diff (units ( unknown) date) [Complete Blood unknown) Count AUTO DIFF] DAILY (unknown) (no (unknown) (unknown) COVID19 -Nasal (units (unknown) date) RAPID Stat unknown) (unknown) (no (unknown) (unknown) CT head/brain wo (units (unknown) date) con Stat unknown) (unknown) (no (unknown) (unknown) Calcium (8.4-10.2) (units (unknown) date) mg/dL unknown) (unknown) (no (unknown) (unknown) Calcium 8.9 (units (un known) date) (8.4-10.2) mg/dL unknown) (unknown) (no (unknown) (unknown) Carbon Dioxide (units (unknown) date) (22-32) mmol/L unknown) (unknown) (no (unknown) (unknown) Carbon Dioxide 24 (units (unknown) date) (22-32) mmol/L unknown) (unknown) (no (unknown) (unknown) Chief Complaint: (units (unknown) date) Psychiatric unknown) Symptoms (unknown) (no (unknown) (unknown) Chlordiazepoxide (units (unknown) date) HCl unknown) (Chlordiazepoxide 25 Mg Capsule) 50 mg PO Q6HR SANDY (unknown) (no (unknown) (unknown) Chloride (98-107) (units (unknown) date) mmol/L unknown) (unknown) (no (unknown) (unknown) Chloride 104 (units (u nknown) date) (98-107) mmol/L unknown) (unknown) (no (unknown) (unknown) Clinical (units (unkno wn) date) Impression: unknown) (unknown) (no (unknown) (unknown) Complete Blood (units (unknown) date) Count AUTO DIFF unknown) Stat (unknown) (no (unknown) (unknown) Comprehensive (units ( unknown) date) Metabolic Panel unknown) Stat (unknown) (no (unknown) (unknown) Consult to WINDOWS MIGRATION TECHNICIAN - (units (unknown) date) 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 unknown) Stat (unknown) (no (unknown) (unknown) Consult to (units (unk nown) date) Tele-baseball scout unknown) Routine (unknown) (no (unknown) (unknown) Course (units (unkno wn) date) unknown) (unknown) (no (unknown) (unknown) Creatinine (units (unk nown) date) (0.52-1.04) mg/dL unknown) (unknown) (no (unknown) (unknown) Creatinine 0.72 (units (unknown) date) (0.52-1.04) mg/dL unknown) (unknown) (no (unknown) (unknown) : 1990 (units (unknown) date) Acct:[id number] unknown) (unknown) (no (unknown) (unknown) Date of Service: (units (unknown) date) 08/01/22 unknown) (unknown) (no (unknown) (unknown) Departure (units (unkn own) date) unknown) (unknown) (no (unknown) (unknown) Discharge Plan (units (unknown) date) unknown) (unknown) (no (unknown) (unknown) Discontinued (units (u nknown) date) Medications unknown) (unknown) (no (unknown) (unknown) Documented By: AT (units (unknown) date) unknown) (unknown) (no (unknown) (unknown) Documented By: KB (units (unknown) date) unknown) (unknown) (no (unknown) (unknown) Documented By: KH (units (unknown) date) unknown) (unknown) (no (unknown) (unknown) Dr Benitez: (units (unn) date) Received turned unknown) over. Reviewed patient's history physical exam and (unknown) (no (unknown) (unknown) ED Orders (units (unkn own) date) unknown) (unknown) (no (unknown) (unknown) ENT: Nose without (units (unknown) date) bleeding, purulent unknown) drainage. Throat without erythema, (unknown) (no (unknown) (unknown) ER Physician: (units ( unknown) date) Will Benitez D.O. unknown) (unknown) (no (unknown) (unknown) EXTREMITIES: No (units (unknown) date) edema or joint unknown) tenderness. Tremulous with arms extended (unknown) (no (unknown) (unknown) EYES: Pupils equal (units (unknown) date) round and reactive. unknown) Extraocular motions intact. No scleral (unknown) (no (unknown) (unknown) Emergency Report (units (unknown) date) unknown) (unknown) (no (unknown) (unknown) Eos # (Auto) (units (u nknown) date) (0-450) /uL unknown) (unknown) (no (unknown) (unknown) Eos # (Auto) 100 (units (unknown) date) (0-450) /uL unknown) (unknown) (no (unknown) (unknown) Eos % (Auto) (2-4) (units (unknown) date) % unknown) (unknown) (no (unknown) (unknown) Eos % (Auto) 3.6 (units (unknown) date) (2-4) % unknown) (unknown) (no (unknown) (unknown) Esterase (units (unkno wn) date) unknown) (unknown) (no (unknown) (unknown) Estimated GFR > 60 (units (unknown) date) (>60) mL/min unknown) (unknown) (no (unknown) (unknown) Estimated GFR (units ( unknown) date) (>60) mL/min unknown) (unknown) (no (unknown) (unknown) Ethanol (ETOH) (units (unknown) date) Stat unknown) (unknown) (no (unknown) (unknown) Ethyl Alcohol < 10 (units (unknown) date) ( - 10) mg/dL unknown) (unknown) (no (unknown) (unknown) Ethyl Alcohol ( - (units (unknown) date) 10) mg/dL unknown) (unknown) (no (unknown) (unknown) Exam Narrative: (units (unknown) date) unknown) (unknown) (no (unknown) (unknown) Exam (units (unkno wn) date) unknown) (unknown) (no (unknown) (unknown) Family History (units (unknown) date) (Reviewed 08/01/22 unknown) @ 06:02 by Reinaldo Arthur DO) (unknown) (no (unknown) (unknown) Family/Other (units (u nknown) date) Alcoholism unknown) (unknown) (no (unknown) (unknown) Family/Other (units (u nknown) date) Diabetes mellitus unknown) (unknown) (no (unknown) (unknown) Father Alcoholism (units (unknown) date) unknown) (unknown) (no (unknown) (unknown) Fluoxetine HCl (units (unknown) date) (Fluoxetine 10 Mg unknown) Capsule) 10 mg PO DAILY SANDY (unknown) (no (unknown) (unknown) Folic Acid (Folic (units (unknown) date) Acid 1 Mg Tablet) 1 unknown) mg PO DAILY SANDY (unknown) (no (unknown) (unknown) GASTROINTESTINAL: (units (unknown) date) Abdomen soft, unknown) non-tender, nondistended. (unknown) (no (unknown) (unknown) GASTROINTESTINAL: (units (unknown) date) Denies nausea, unknown) vomiting, abdominal pain, diarrhea, (unknown) (no (unknown) (unknown) GENERAL: Denies (units (unknown) date) chills, fatigue, unknown) malaise, fever, sweats. (unknown) (no (unknown) (unknown) GENERAL: [31] year [...] mg/dL unknown) (unknown) (no (unknown) (unknown) Glucose 99 (units (unk nown) date) (70-100) mg/dL unknown) (unknown) (no (unknown) [...] swallowing, (unknown) (no (unknown) (unknown) HPI - Altered (units ( unknown) date) Mental Status unknown) (unknown) (no (unknown) (unknown) HPI narrative: (units (unknown) date) unknown) (unknown) (no (unknown) (unknown) Hct (36-46) % (units ( unknown) date) unknown) (unknown) (no (unknown) (unknown) Hct 28.9 L (36-46) (units (unknown) date) % unknown) (unknown) (no (unknown) (unknown) Hgb (12.0-16.0) (units (unknown) date) g/dL unknown) (unknown) (no (unknown) (unknown) Hgb 9.5 L (units (unkn own) date) (12.0-16.0) g/dL unknown) (unknown) (no (unknown) (unknown) History of Present (units (unknown) date) Illness unknown) (unknown) (no (unknown) (unknown) Home Medications (units (unknown) date) unknown) (unknown) (no (unknown) (unknown) Hydroxyzine (units (un known) date) Pamoate unknown) (Hydroxyzine Pamoate 25 Mg Capsule) 50 mg PO DAILY SANDY (unknown) (no (unknown) (unknown) INR (0.9-1.3) (units ( unknown) date) unknown) (unknown) (no (unknown) (unknown) INR 1.1 (0.9-1.3) (units (unknown) date) unknown) (unknown) (no (unknown) (unknown) Ictotest Urine (units (unknown) date) Stat unknown) (unknown) (no (unknown) (unknown) Initial Vital (units ( unknown) date) Signs unknown) (unknown) (no (unknown) (unknown) Initial Vital (units ( unknown) date) Signs: unknown) (unknown) (no (unknown) (unknown) Insomnia (units (unkno wn) date) unknown) (unknown) (no (unknown) (unknown) [facility] (units (unknown) date) [address] [place] [address] unknown) [place] [address] (unknown) (no (unknown) (unknown) Lab Data (units (unkno wn) date) unknown) (unknown) (no (unknown) (unknown) Lab Results (units (un known) date) unknown) (unknown) (no (unknown) (unknown) Labs: (units (unkno wn) date) unknown) (unknown) (no (unknown) (unknown) Last Admin: (units (un known) date) 08/01/22 06:31 unknown) Dose: 260 mg (unknown) (no (unknown) (unknown) Last Admin: (units (un known) date) 08/01/22 07:45 unknown) Dose: 1 mg (unknown) (no (unknown) (unknown) Last Admin: (units (un known) date) 08/01/22 08:09 unknown) Dose: 2 mg (unknown) (no (unknown) (unknown) Last Admin: (units (un known) date) 08/01/22 08:10 unknown) Dose: Not Given (unknown) (no (unknown) (unknown) Last Infusion: (units (unknown) date) 08/01/22 08:03 unknown) Dose: 0 mls/hr (unknown) (no (unknown) (unknown) Last Infusion: (units (unknown) date) 08/01/22 08:09 unknown) Dose: 0 mls/hr (unknown) (no (unknown) (unknown) Lipase (23-300) (units (unknown) date) U/L unknown) (unknown) (no (unknown) (unknown) Lipase 337 H (units (u nknown) date) (23-300) U/L unknown) (unknown) (no (unknown) (unknown) Lipase Stat (units (un known) date) unknown) (unknown) (no (unknown) (unknown) Lorazepam (units (unkn own) date) (Lorazepam 1 Mg unknown) Tablet) 0 mg PO CIWAPRN PRN; Protocol (unknown) (no (unknown) (unknown) Lorazepam (units (unkn own) date) (Lorazepam 2 Mg/Ml unknown) Inj) 0 mg IV CIWAPRN PRN; Protocol (unknown) (no (unknown) (unknown) Lorazepam (units (unkn own) date) (Lorazepam 2 Mg/Ml unknown) Inj) 1 mg IV NOW ONE (unknown) (no (unknown) (unknown) Lorazepam (units (unkn own) date) (Lorazepam 2 Mg/Ml unknown) Inj) 2 mg IV NOW ONE (unknown) (no (unknown) (unknown) Lymph # (Auto) (units (unknown) date) (0239-6128) /uL unknown) (unknown) (no (unknown) (unknown) Lymph # (Auto) (units (unknown) date) 1000 L (7140-5248) unknown) /uL (unknown) (no (unknown) (unknown) Lymph % (Auto) (units (unknown) date) (25-40) % unknown) (unknown) (no (unknown) (unknown) Lymph % (Auto) (units (unknown) date) 29.3 (25-40) % unknown) (unknown) (no (unknown) (unknown) MCH (26-34) PG (units (unknown) date) unknown) (unknown) (no (unknown) (unknown) MCH 26.5 (26-34) (units (unknown) date) PG unknown) (unknown) (no (unknown) (unknown) MCHC (30-36) % (units (unknown) date) unknown) (unknown) (no (unknown) (unknown) MCHC 32.9 (30-36) (units (unknown) date) % unknown) (unknown) (no (unknown) (unknown) MCV (80-100) fL (units (unknown) date) unknown) (unknown) (no (unknown) (unknown) MCV 80.6 (80-100) (units (unknown) date) fL unknown) (unknown) (no (unknown) (unknown) MDM - Altered (units ( unknown) date) Mental Status unknown) (unknown) (no (unknown) (unknown) MDM Narrative (units ( unknown) date) unknown) (unknown) (no (unknown) (unknown) MUSCULOSKELETAL: (units (unknown) date) denies weakness, unknown) joint pain, or bony pain (unknown) (no (unknown) (unknown) Magnesium Urgent (units (unknown) date) unknown) (unknown) (no (unknown) (unknown) Medical History (units (unknown) date) (Reviewed 08/01/22 unknown) @ 06:02 by Reinaldo Arthur DO) (unknown) (no (unknown) (unknown) Medical decision (units (unknown) date) making narrative: unknown) (unknown) (no (unknown) (unknown) Medication (units (unk nown) date) Instructions unknown) Recorded Confirmed (unknown) (no (unknown) (unknown) Medication (units (unk nown) date) Instructions unknown) Recorded (unknown) (no (unknown) (unknown) Menometrorrhagia (units (unknown) date) unknown) (unknown) (no (unknown) (unknown) Yates # (Auto) (units ( unknown) date) (0-900) /uL unknown) (unknown) (no (unknown) (unknown) Yates # (Auto) 300 (units (unknown) date) (0-900) /uL unknown) (unknown) (no (unknown) (unknown) Yates % (Auto) (units ( unknown) date) (3-14) % unknown) (unknown) (no (unknown) (unknown) Yates % (Auto) 8.0 (units (unknown) date) (3-14) % unknown) (unknown) (no (unknown) (unknown) Mother Diabetes (units (unknown) date) mellitus unknown) (unknown) (no (unknown) (unknown) Multivitamins (units ( unknown) date) (Multivitamin 1 unknown) Tablet) 1 tab PO DAILY SANDY (unknown) (no (unknown) (unknown) NECK: Trachea (units ( unknown) date) midline. Non tender unknown) (unknown) (no (unknown) (unknown) NEURO: AOx3. (units (u nknown) date) Cranial nerves 2-12 unknown) grossly intact (unknown) (no (unknown) (unknown) NEUROLOGIC: See (units (unknown) date) HPI unknown) (unknown) (no (unknown) (unknown) Naloxone HCl (units (u nknown) date) (Naloxone 0.4 Mg/Ml unknown) Vial) 0.2 mg IV Q2MIN PRN (unknown) (no (unknown) (unknown) Narrative (units (unkn own) date) unknown) (unknown) (no (unknown) (unknown) Narrative: (units (unk nown) date) unknown) (unknown) (no (unknown) (unknown) Neut # (Auto) (units ( unknown) date) (1490-8481) /uL unknown) (unknown) (no (unknown) (unknown) Neut # (Auto) 1900 (units (unknown) date) (8570-7247) /uL unknown) (unknown) (no (unknown) (unknown) Neut % (Auto) (units ( unknown) date) (50-75) % unknown) (unknown) (no (unknown) (unknown) Neut % (Auto) 57.6 (units (unknown) date) (50-75) % unknown) (unknown) (no (unknown) (unknown) Obesity (units (unkno wn) date) unknown) (unknown) (no (unknown) (unknown) Ondansetron HCl (units (unknown) date) (Ondansetron 4 Mg/2 unknown) Ml Inj) 4 mg IV Q6HR PRN (unknown) (no (unknown) (unknown) Ordered: (units (unkno wn) date) unknown) (unknown) (no (unknown) (unknown) Orders (units (unkno wn) date) unknown) (unknown) (no (unknown) (unknown) Overweight (units (unk nown) date) unknown) (unknown) (no (unknown) (unknown) Oxygen Delivery (units (unknown) date) Method Room Air unknown) 08/01/22 05:00 (unknown) (no (unknown) (unknown) Oxygen Delivery (units (unknown) date) Method Room Air unknown) Room Air (unknown) (no (unknown) (unknown) PRN Reason: (units (un known) date) Alcohol Withdrawal unknown) (unknown) (no (unknown) (unknown) PRN Reason: (units (un known) date) Constipation unknown) (unknown) (no (unknown) (unknown) PRN Reason: (units (un known) date) Fever/Mild Pain unknown) (1-3) (unknown) (no (unknown) (unknown) PRN Reason: Nausea (units (unknown) date) And Vomiting unknown) (unknown) (no (unknown) (unknown) PRN Reason: Opiate (units (unknown) date) Reversal unknown) (unknown) (no (unknown) (unknown) PRN (units (unkno wn) date) unknown) (unknown) (no (unknown) (unknown) PSYCHIATRIC: No (units (unknown) date) concerning unknown) psychosocial issues. (unknown) (no (unknown) (unknown) PT (10.1-12.7) (units (unknown) date) SECONDS unknown) (unknown) (no (unknown) (unknown) PT 12.2 (units (unkno wn) date) (10.1-12.7) SECONDS unknown) (unknown) (no (unknown) (unknown) Pantoprazole (units (u nknown) date) Sodium unknown) (Pantoprazole 40 Mg Vial) 40 mg IV DAILY SANDY (unknown) (no (unknown) (unknown) Patient (units (unkno wn) date) Disposition: unknown) Admitted As Inpatient (unknown) (no (unknown) (unknown) Patient History (units (unknown) date) unknown) (unknown) (no (unknown) (unknown) Patient: (units (unkno wn) date) DorySarah R unknown) MR#: M (unknown) (no (unknown) (unknown) Phenobarbital (units ( unknown) date) (Phenobarbital 65 unknown) Mg/Ml Vial) 260 mg IV NOW ONE (unknown) (no (unknown) (unknown) Phenobarbital (units ( unknown) date) (Phenobarbital 65 unknown) Mg/Ml Vial) 60 mg IV BID SANDY (unknown) (no (unknown) (unknown) Plt Count (units (unkn own) date) (150-400) X103/uL unknown) (unknown) (no (unknown) (unknown) Plt Count 178 (units ( unknown) date) (150-400) X103/uL unknown) (unknown) (no (unknown) (unknown) Point of Care (units ( unknown) date) Testing unknown) (unknown) (no (unknown) (unknown) Polyethylene (units (u nknown) date) Glycol unknown) (Polyethylene Glycol 3350 17 Gm Powd.Pack) 17 gm PO DAILY (unknown) (no (unknown) (unknown) Potassium (units (unkn own) date) (3.4-5.1) mmol/L unknown) (unknown) (no (unknown) (unknown) Potassium 3.5 (units ( unknown) date) (3.4-5.1) mmol/L unknown) (unknown) (no (unknown) (unknown) Test (units (unknown) date) Results Negative unknown) (unknown) (no (unknown) (unknown) Previous Rx's (units ( unknown) date) unknown) (unknown) (no (unknown) (unknown) Prothrombin Time (units (unknown) date) INR Stat unknown) (unknown) (no (unknown) (unknown) Pulse Oximetry 98 (units (unknown) date) 08/01/22 05:00 unknown) (unknown) (no (unknown) (unknown) Pulse Oximetry 98 (units (unknown) date) 98 unknown) (unknown) (no (unknown) (unknown) Pulse Rate 76 (units ( unknown) date) 08/01/22 05:00 unknown) (unknown) (no (unknown) (unknown) Pulse Rate 76 65 (units (unknown) date) unknown) (unknown) (no (unknown) (unknown) Pyridoxine HCl (units (unknown) date) (Pyridoxine 100 unknown) Mg/Ml Vial) 100 mg IV DAILY SANDY (unknown) (no (unknown) (unknown) RBC (4.0-5.2) (units ( unknown) date) X106/uL unknown) (unknown) (no (unknown) (unknown) RBC 3.59 L (units (unk nown) date) (4.0-5.2) X106/uL unknown) (unknown) (no (unknown) (unknown) RDW (11.6-14.8) % (units (unknown) date) unknown) (unknown) (no (unknown) (unknown) RDW 19.7 H (units (unk nown) date) (11.6-14.8) % unknown) (unknown) (no (unknown) (unknown) RESPIRATORY: Clear (units (unknown) date) to auscultation. unknown) Breath sounds equal bilaterally. No wheezes, (unknown) (no (unknown) (unknown) RESPIRATORY: (units (u nknown) date) Denies dyspnea, unknown) cough, wheezing, hemoptysis, sputum. (unknown) (no (unknown) (unknown) Related Data (units (u nknown) date) unknown) (unknown) (no (unknown) (unknown) Respiratory Rate (units (unknown) date) 18 08/01/22 05:00 unknown) (unknown) (no (unknown) (unknown) Respiratory Rate (units (unknown) date) 18 20 unknown) (unknown) (no (unknown) (unknown) Review of [...] delivery) unknown) (-09/05/18) (unknown) (no (unknown) (unknown) Salicylate Stat (units (unknown) date) unknown) (unknown) (no (unknown) (unknown) Salicylates < 1.0 (units (unknown) date) (<20) mg/dL unknown) (unknown) (no (unknown) (unknown) Salicylates (<20) (units (unknown) date) mg/dL unknown) (unknown) (no (unknown) (unknown) Sennosides (units (unk nown) date) (Sennosides 8.6 Mg unknown) Tablet) 8.6 mg PO BID PRN (unknown) (no (unknown) (unknown) Signed By: (units (unk nown) date) unknown) (unknown) (no (unknown) (unknown) Smoker (units (unkno wn) date) unknown) (unknown) (no (unknown) (unknown) Smoking Status: (units (unknown) date) Former smoker unknown) (unknown) (no (unknown) (unknown) Social History (units (unknown) date) (Reviewed 08/01/22 unknown) @ 06:02 by Reinaldo Arthur DO) (unknown) (no (unknown) (unknown) Sodium (137-145) (units (unknown) date) mmol/L unknown) (unknown) (no (unknown) (unknown) Sodium 136 L (units (u nknown) date) (137-145) mmol/L unknown) (unknown) (no (unknown) (unknown) Sodium Chloride (units (unknown) date) (Normal Saline unknown) 0.9%) 2,000 mls @ 1,000 mls/hr IV BOLUS ONE (unknown) (no (unknown) (unknown) Stated Complaint: (units (unknown) date) Altered LOC unknown) (unknown) (no (unknown) (unknown) Stop: 08/01/22 (units (unknown) date) 05:56 unknown) (unknown) (no (unknown) (unknown) Stop: 08/01/22 (units (unknown) date) 06:12 unknown) (unknown) (no (unknown) (unknown) Stop: 08/01/22 (units (unknown) date) 07:36 unknown) (unknown) (no (unknown) (unknown) Stop: 08/01/22 (units (unknown) date) 08:05 unknown) (unknown) (no (unknown) (unknown) Stop: 08/01/22 (units (unknown) date) 08:08 unknown) (unknown) (no (unknown) (unknown) Substance Use (units ( unknown) date) Type: does not use unknown) (unknown) (no (unknown) (unknown) Surgical History (units (unknown) date) (Reviewed 08/01/22 unknown) @ 06:02 by Reinaldo Arthur DO) (unknown) (no (unknown) (unknown) TITRATE SANDY; (units (u nknown) date) Protocol unknown) (unknown) (no (unknown) (unknown) TSH w/ Reflex to (units (unknown) date) FT4 Urgent unknown) (unknown) (no (unknown) (unknown) Temperature 97.7 F (units (unknown) date) 08/01/22 05:00 unknown) (unknown) (no (unknown) (unknown) Temperature 97.7 F (units (unknown) date) unknown) (unknown) (no (unknown) (unknown) Thiamine HCl 100 (units (unknown) date) mg/ Sodium unknown) (Chloride) 101 mls @ 404 mls/hr IV DAILY SANDY (unknown) (no (unknown) (unknown) Thiamine HCl 200 (units (unknown) date) mg/ Sodium unknown) (Chloride) 102 mls @ 408 mls/hr IV NOW ONE (unknown) (no (unknown) (unknown) Time Seen by (units (u nknown) date) Provider: 08/01/22 unknown) 05:45 (unknown) (no (unknown) (unknown) Total Bilirubin (units (unknown) date) (0.2-1.3) mg/dL unknown) (unknown) (no (unknown) (unknown) Total Bilirubin (units (unknown) date) 0.7 (0.2-1.3) mg/dL unknown) (unknown) (no (unknown) (unknown) Total Protein (units ( unknown) date) (6.3-8.2) g/dL unknown) (unknown) (no (unknown) (unknown) Total Protein 6.8 (units (unknown) date) (6.3-8.2) g/dL unknown) (unknown) (no (unknown) (unknown) U Benzodiazepines (units (unknown) date) Scrn (Negative) unknown) (unknown) (no (unknown) (unknown) U Benzodiazepines (units (unknown) date) Scrn Positive H unknown) (Negative) (unknown) (no (unknown) (unknown) U Marijuana (THC) (units (unknown) date) Screen (Negative) unknown) (unknown) (no (unknown) (unknown) U Marijuana (THC) (units (unknown) date) Screen Negative unknown) (Negative) (unknown) (no (unknown) (unknown) U Methamphetamines (units (unknown) date) Scrn (Negative) unknown) (unknown) (no (unknown) (unknown) U Methamphetamines (units (unknown) date) Scrn Negative unknown) (Negative) (unknown) (no (unknown) (unknown) U Opiates 300ng/mL (units (unknown) date) cut (Negative) unknown) (unknown) (no (unknown) (unknown) U Opiates 300ng/mL (units (unknown) date) cut Negative unknown) (Negative) (unknown) (no (unknown) (unknown) U Tricyclic (units (un known) date) Antidepress unknown) (Negative) (unknown) (no (unknown) (unknown) U Tricyclic (units (un known) date) Antidepress unknown) Positive H (Negative) (unknown) (no (unknown) (unknown) Ur Amphetamines (units (unknown) date) Screen (Negative) unknown) (unknown) (no (unknown) (unknown) Ur Amphetamines (units (unknown) date) Screen Negative unknown) (Negative) (unknown) (no (unknown) (unknown) Ur Barbiturates (units (unknown) date) Screen (Negative) unknown) (unknown) (no (unknown) (unknown) Ur Barbiturates (units (unknown) date) Screen Positive H unknown) (Negative) (unknown) (no (unknown) (unknown) Ur Bilirubin (units (u nknown) date) Confirm (Negative) unknown) (unknown) (no (unknown) (unknown) Ur Bilirubin (units (u nknown) date) Confirm Negative unknown) (Negative) (unknown) (no (unknown) (unknown) Ur Culture (units (unk nown) date) Indicated? Cult not unknown) indicated (unknown) (no (unknown) (unknown) Ur Culture (units (unk nown) date) Indicated? unknown) (unknown) (no (unknown) (unknown) Ur MDMA Scrn (units (u nknown) date) (Ecstasy) unknown) (Negative) (unknown) (no (unknown) (unknown) Ur MDMA Scrn (units (u nknown) date) (Ecstasy) Negative unknown) (Negative) (unknown) (no (unknown) (unknown) Ur Oxycodone (units (u nknown) date) Screen (Negative) unknown) (unknown) (no (unknown) (unknown) Ur Oxycodone (units (u nknown) date) Screen Negative unknown) (Negative) (unknown) (no (unknown) (unknown) Ur Phencyclidine (units (unknown) date) Scrn (Negative) unknown) (unknown) (no (unknown) (unknown) Ur Phencyclidine (units (unknown) date) Scrn Negative unknown) (Negative) (unknown) (no (unknown) (unknown) Ur Squamous Epith (units (unknown) date) Cells (0-5/HPF) unknown) (unknown) (no (unknown) (unknown) Ur Squamous Epith (units (unknown) date) Cells 5-10 /hpf H unknown) (0-5/HPF) (unknown) (no (unknown) (unknown) Urine Bacteria (units (unknown) date) (None) unknown) (unknown) (no (unknown) (unknown) Urine Bacteria Few (units (unknown) date) (2-10) H (None) unknown) (unknown) (no (unknown) (unknown) Urine Cocaine (units ( unknown) date) Screen (Negative) unknown) (unknown) (no (unknown) (unknown) Urine Cocaine (units ( unknown) date) Screen Negative unknown) (Negative) (unknown) (no (unknown) (unknown) Urine Dip (units (unkn own) date) unknown) (unknown) (no (unknown) (unknown) Urine Drug Screen, (units (unknown) date) Rapid Stat unknown) (unknown) (no (unknown) (unknown) Urine Methadone (units (unknown) date) Screen (Negative) unknown) (unknown) (no (unknown) (unknown) Urine Methadone (units (unknown) date) Screen Negative unknown) (Negative) (unknown) (no (unknown) (unknown) Urine Microscopic (units (unknown) date) Stat unknown) (unknown) (no (unknown) (unknown) Urine Mucus (units (un known) date) (Negative) unknown) (unknown) (no (unknown) (unknown) Urine Mucus 3+ H D (units (unknown) date) (Negative) unknown) (unknown) (no (unknown) (unknown) Urine RBC (units (unkn own) date) (0-5/HPF) unknown) (unknown) (no (unknown) (unknown) Urine RBC None (units (unknown) date) seen (0-5/HPF) unknown) (unknown) (no (unknown) (unknown) Urine Specific (units (unknown) date) [place] 1.030 unknown) (unknown) (no (unknown) (unknown) Urine WBC (units (unkn own) date) (0-5/HPF) unknown) (unknown) (no (unknown) (unknown) Urine WBC 1-5/hpf (units (unknown) date) (0-5/HPF) unknown) (unknown) (no (unknown) (unknown) Vital Signs - 8 hr (units (unknown) date) unknown) (unknown) (no (unknown) (unknown) Vital Signs (units (un known) date) unknown) (unknown) (no (unknown) (unknown) Vital signs: (units (u nknown) date) unknown) (unknown) (no (unknown) (unknown) WBC (4.5-11.0) (units (unknown) date) X103/uL unknown) (unknown) (no (unknown) (unknown) WBC 3.3 L (units (unkn own) date) (4.5-11.0) X103/uL unknown) (unknown) (no (unknown) (unknown) [Embedded Image (units (unknown) date) Not Available] unknown) (unknown) (no (unknown) (unknown) [METOCLOPRAMIDE] (units (unknown) date) unknown) (unknown) (no (unknown) (unknown) admit for further (units (unknown) date) evaluation and unknown) treatment of her alcohol withdrawal. (unknown) (no (unknown) (unknown) alcohol intake (units (unknown) date) frequency: 3 or unknown) more drinks per day (unknown) (no (unknown) (unknown) alcohol intake: (units (unknown) date) former unknown) (unknown) (no (unknown) (unknown) alcohol (units (unkno wn) date) withdrawal. Is unknown) hallucinating. CIWA score is elevated. Has been given (unknown) (no (unknown) (unknown) alert but does (units (unknown) date) still have some unknown) visual hallucinations is a bit tremulous with (unknown) (no (unknown) (unknown) arms extended and (units (unknown) date) agitated. She unknown) denies any recent trauma or injury. (unknown) (no (unknown) (unknown) chief complaint of (units (unknown) date) withdrawal symptoms unknown) and was treated with Ativan and phenobarb (unknown) (no (unknown) (unknown) constipation, (units ( unknown) date) melena. unknown) (unknown) (no (unknown) (unknown) current (units (unkno wn) date) occupational unknown) exposures/hazards: Yes (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 with Pandemic ) (unknown) (no (unknown) (unknown) decisions and she (units (unknown) date) decided to go home. unknown) She returns this morning. Is an obvious (unknown) (no (unknown) (unknown) dexmedeTOMIDine in (units (unknown) date) 0.9 % NaCL unknown) (Precedex) 400 mcg in 100 mls @ 2.699 mls/hr IV (unknown) (no (unknown) (unknown) dizziness. (units (unk nown) date) unknown) (unknown) (no (unknown) (unknown) drink on (units (unknown) date) or Saturday and unknown) developed symptoms over the course of the (unknown) (no (unknown) (unknown) education level: (units (unknown) date) college unknown) (unknown) (no (unknown) (unknown) renee/zoroastrianism: (units (unknown) date) Buddhist unknown) (unknown) (no (unknown) (unknown) fluoxetine 10 mg (units (unknown) date) capsule 10 mg PO unknown) DAILY 07/13/22 07/13/22 (unknown) (no (unknown) (unknown) for the 2nd time (units (unknown) date) is many days. She unknown) had been seen and evaluated yesterday with a (unknown) (no (unknown) (unknown) hallucinations (units (unknown) date) that improved unknown) tremendously. She presents tonight and the (unknown) (no (unknown) (unknown) hen she was having (units (unknown) date) alcohol withdrawal unknown) symptoms. I advised that time that she (unknown) (no (unknown) (unknown) household members: (units (unknown) date) children unknown) (unknown) (no (unknown) (unknown) hydrocodone (units (un known) date) [HYDROCODONE] unknown) AdvReac Unknown VOMITING Verified 07/12/22 16:18 (unknown) (no (unknown) (unknown) hydroxyzine HCl 50 (units (unknown) date) mg tablet 50 mg PO unknown) DAILY 07/13/22 07/13/22 (unknown) (no (unknown) (unknown) icterus. No (units (un known) date) injection or unknown) drainage. (unknown) (no (unknown) (unknown) make decisions in (units (unknown) date) my opinion. I did unknown) discuss the case with Dr. Sena we will (unknown) (no (unknown) (unknown) marital status: (units (unknown) date) unknown) (unknown) (no (unknown) (unknown) mcg tablet (units (unk nown) date) (Tab-A-Kael) unknown) (unknown) (no (unknown) (unknown) metoclopramide (units (unknown) date) Allergy Mild unknown) RASH/HIVES Verified 07/12/22 16:18 (unknown) (no (unknown) (unknown) mg tablet (units (unkn own) date) unknown) (unknown) (no (unknown) (unknown) mild distress. (units (unknown) date) Agitated a bit in unknown) distress, alert to person and place (unknown) (no (unknown) (unknown) multivitamin with (units (unknown) date) folic acid 400 1 unknown) tab PO DAILY #30 tabs 07/14/22 (unknown) (no (unknown) (unknown) number of (units (unkn own) date) children: 1 unknown) (unknown) (no (unknown) (unknown) occupational (units (u nknown) date) status: employed unknown) (unknown) (no (unknown) (unknown) pantoprazole 40 mg (units (unknown) date) tablet,delayed 40 unknown) mg PO 0700 #30 tabs 07/14/22 (unknown) (no (unknown) (unknown) phenobarbital and (units (unknown) date) also Ativan. unknown) Currently the patient does not have capacity to (unknown) (no (unknown) (unknown) presence of EMS (units (unknown) date) has there is a unknown) report that she had been found hallucinating and (unknown) (no (unknown) (unknown) quetiapine 300 mg (units (unknown) date) tablet 300 mg PO unknown) DAILY 07/13/22 07/13/22 (unknown) (no (unknown) (unknown) rales, or rhonchi. (units (unknown) date) unknown) (unknown) (no (unknown) (unknown) rather well until (units (unknown) date) recently when she unknown) went on a bit of a [place] and had her last (unknown) (no (unknown) (unknown) release (units (unkno wn) date) unknown) (unknown) (no (unknown) (unknown) second hand (units (un known) date) exposure: No unknown) (growing up as a child - not currently) (unknown) (no (unknown) (unknown) special renee (units ( unknown) date) needs: No unknown) (unknown) (no (unknown) (unknown) stay in the (units (un known) date) hospital however unknown) they did feel that she had capacity to make (unknown) (no (unknown) (unknown) substance use (units ( unknown) date) type: does not use unknown) (unknown) (no (unknown) (unknown) then jumped over a (units (unknown) date) [place] and [place]. On arrival patient is largely (unknown) (no (unknown) (unknown) thiamine (units (unkno wn) date) mononitrate (vit unknown) B1) 100 100 mg PO DAILY #30 tabs 07/14/22 (unknown) (no (unknown) (unknown) tonsillar (units (unkn own) date) hypertrophy or unknown) exudate. Airway patent. (unknown) (no (unknown) (unknown) was feeling quite (units (unknown) date) well and discharged unknown) home. She states that she had been doing (unknown) (no (unknown) (unknown) weekend. She (units (u nknown) date) presented yesterday unknown) with agitation and anxiety along with some (unknown) (no (unknown) (unknown) workup up to this (units (unknown) date) point. I am aware unknown) the patient is I evaluated her yesterday w (unknown) (no (unknown) (unknown) yelling at people (units (unknown) date) that were not unknown) there, maintaining that a smoker or bit her and Result panel [id number] (unknown) (no (unknown) (unknown) (no value) (units (unk nown) date) unknown) (unknown) (no (unknown) (unknown) # GERD (units (unkno wn) date) unknown) (unknown) (no (unknown) (unknown) # acute alcohol (units (unknown) date) withdrawal with unknown) delirium tremens (unknown) (no (unknown) (unknown) # depression and (units (unknown) date) anxiety unknown) (unknown) (no (unknown) (unknown) # normocytic (units (u nknown) date) anemia unknown) (unknown) (no (unknown) (unknown) (past 8 hours): (units (unknown) date) unknown) (unknown) (no (unknown) (unknown) -CIWA protocol (units (unknown) date) with Ativan, unknown) phenobarbital 60 mg IV b.i.d., Librium 50 q.6 hours (unknown) (no (unknown) (unknown) -MV, thiamine and (units (unknown) date) B6 daily unknown) (unknown) (no (unknown) (unknown) -appears to be (units (unknown) date) chronic unknown) (unknown) (no (unknown) (unknown) -appreciate (units (un known) date) tele-ICU unknown) consultation (unknown) (no (unknown) (unknown) -check B12/folate (units (unknown) date) unknown) (unknown) (no (unknown) (unknown) -continue PPI (units ( unknown) date) unknown) (unknown) (no (unknown) (unknown) -continue Precedex (units (unknown) date) drip until and unknown) benzos and barbiturates can take effect (unknown) (no (unknown) (unknown) -continue home (units (unknown) date) Prozac when able to unknown) take po (unknown) (no (unknown) (unknown) -no evidence of (units (unknown) date) bleeding unknown) (unknown) (no (unknown) (unknown) -patient states (units (unknown) date) last drink 5 days unknown) ago, but unclear if true given current (unknown) (no (unknown) (unknown) [id number] (units (unkn own) date) unknown) (unknown) (no (unknown) (unknown) 08/01/22 08/01/22 (units (unknown) date) 08/01/22 unknown) (unknown) (no (unknown) (unknown) 08/01/22 05:10 (units (unknown) date) unknown) (unknown) (no (unknown) (unknown) 08/01/22 (units (unkno wn) date) unknown) (unknown) (no (unknown) (unknown) 05:00 08/01/22 (units (unknown) date) unknown) (unknown) (no (unknown) (unknown) 05:10 05:10 05:10 (units (unknown) date) unknown) (unknown) (no (unknown) (unknown) 05:20 05:20 05:20 (units (unknown) date) unknown) (unknown) (no (unknown) (unknown) 07:44 (units (unkno wn) date) unknown) (unknown) (no (unknown) (unknown) ABD: soft, (units (unk nown) date) nontender, unknown) nondistended, no organomegaly (unknown) (no (unknown) (unknown) ALT 24 (units (unkno wn) date) unknown) (unknown) (no (unknown) (unknown) ALT (units (unkno wn) date) unknown) (unknown) (no (unknown) (unknown) AST 67 H (units (unkno wn) date) unknown) (unknown) (no (unknown) (unknown) AST (units (unkno wn) date) unknown) (unknown) (no (unknown) (unknown) Acetaminophen < 10 (units (unknown) date) unknown) (unknown) (no (unknown) (unknown) Acetaminophen (units ( unknown) date) unknown) (unknown) (no (unknown) (unknown) Age/Sex: 31 / F (units (unknown) date) unknown) (unknown) (no (unknown) (unknown) Albumin 4.1 (units (un known) date) unknown) (unknown) (no (unknown) (unknown) Albumin (units (unkno wn) date) unknown) (unknown) (no (unknown) (unknown) Albumin/Globulin (units (unknown) date) Ratio 1.5 unknown) (unknown) (no (unknown) (unknown) Albumin/Globulin (units (unknown) date) Ratio unknown) (unknown) (no (unknown) (unknown) Alcohol withdrawal (units (unknown) date) delirium, acute, unknown) hyperactive (unknown) (no (unknown) (unknown) Alcoholism (units (unk nown) date) unknown) (unknown) (no (unknown) (unknown) Alkaline (units (unkno wn) date) Phosphatase 52 unknown) (unknown) (no (unknown) (unknown) Alkaline (units (unkno wn) date) Phosphatase unknown) (unknown) (no (unknown) (unknown) All other systems (units (unknown) date) reviewed with the unknown) patient and are negative unless otherwise (unknown) (no (unknown) (unknown) Allergies (units (unkn own) date) unknown) (unknown) (no (unknown) (unknown) Allergy/AdvReac (units (unknown) date) Type Severity unknown) Reaction Status Date / Time (unknown) (no (unknown) (unknown) Anemia (-2018) (units (unknown) date) unknown) (unknown) (no (unknown) (unknown) Assessment + Plan (units (unknown) date) narrative: unknown) (unknown) (no (unknown) (unknown) Assessment + Plan (units (unknown) date) unknown) (unknown) (no (unknown) (unknown) BUN 14 (units (unkno wn) date) unknown) (unknown) (no (unknown) (unknown) BUN (units (unkno wn) date) unknown) (unknown) (no (unknown) (unknown) BUN/Creatinine (units (unknown) date) Ratio 19.4 unknown) (unknown) (no (unknown) (unknown) BUN/Creatinine (units (unknown) date) Ratio unknown) (unknown) (no (unknown) (unknown) Baso # (Auto) 0 (units (unknown) date) unknown) (unknown) (no (unknown) (unknown) Baso # (Auto) (units ( unknown) date) unknown) (unknown) (no (unknown) (unknown) Baso % (Auto) 1.5 (units (unknown) date) unknown) (unknown) (no (unknown) (unknown) Baso % (Auto) (units ( unknown) date) unknown) (unknown) (no (unknown) (unknown) Blood Pressure (units (unknown) date) 92/67 98/53 L unknown) (unknown) (no (unknown) (unknown) COVID negative. (units (unknown) date) unknown) (unknown) (no (unknown) (unknown) CV: regular rate (units (unknown) date) and rhythm, no unknown) murmurs (unknown) (no (unknown) (unknown) Calcium 8.9 (units (un known) date) unknown) (unknown) (no (unknown) (unknown) Calcium (units (unkno wn) date) unknown) (unknown) (no (unknown) (unknown) Carbon Dioxide 24 (units (unknown) date) unknown) (unknown) (no (unknown) (unknown) Carbon Dioxide (units (unknown) date) unknown) (unknown) (no (unknown) (unknown) Chief complaint: (units (unknown) date) Altered LOC unknown) (unknown) (no (unknown) (unknown) Chloride 104 (units (u nknown) date) unknown) (unknown) (no (unknown) (unknown) Chloride (units (unkno wn) date) unknown) (unknown) (no (unknown) (unknown) Code status is (units (unknown) date) full code. unknown) (unknown) (no (unknown) (unknown) Creatinine 0.72 (units (unknown) date) unknown) (unknown) (no (unknown) (unknown) Creatinine (units (unk nown) date) unknown) (unknown) (no (unknown) (unknown) : 1990 (units (unknown) date) Acct:[id number] unknown) (unknown) (no (unknown) (unknown) DVT prophylaxis (units (unknown) date) with SCDs. unknown) (unknown) (no (unknown) (unknown) Date Patient Seen: (units (unknown) date) 08/01/22 unknown) (unknown) (no (unknown) (unknown) Date of Service: (units (unknown) date) 08/01/22 unknown) (unknown) (no (unknown) (unknown) EXT: warm and well (units (unknown) date) perfused with no unknown) edema (unknown) (no (unknown) (unknown) Eos # (Auto) 100 (units (unknown) date) unknown) (unknown) (no (unknown) (unknown) Eos # (Auto) (units (u nknown) date) unknown) (unknown) (no (unknown) (unknown) Eos % (Auto) 3.6 (units (unknown) date) unknown) (unknown) (no (unknown) (unknown) Eos % (Auto) (units (u nknown) date) unknown) (unknown) (no (unknown) (unknown) Estimated GFR > 60 (units (unknown) date) unknown) (unknown) (no (unknown) (unknown) Estimated GFR (units ( unknown) date) unknown) (unknown) (no (unknown) (unknown) Ethyl Alcohol < 10 (units (unknown) date) unknown) (unknown) (no (unknown) (unknown) Ethyl Alcohol (units ( unknown) date) unknown) (unknown) (no (unknown) (unknown) Exam Narrative: (units (unknown) date) unknown) (unknown) (no (unknown) (unknown) Exam (units (unkno wn) date) unknown) (unknown) (no (unknown) (unknown) Family + Social (units (unknown) date) History unknown) (unknown) (no (unknown) (unknown) Family History (units (unknown) date) (Reviewed 08/01/22 unknown) @ 06:02 by Reinaldo Arthur DO) (unknown) (no (unknown) (unknown) Family/Other (units (u nknown) date) Alcoholism unknown) (unknown) (no (unknown) (unknown) Family/Other (units (u nknown) date) Diabetes mellitus unknown) (unknown) (no (unknown) (unknown) Father Alcoholism (units (unknown) date) unknown) (unknown) (no (unknown) (unknown) GEN: no acute (units ( unknown) date) distress unknown) (unknown) (no (unknown) (unknown) Globulin 2.7 (units (u nknown) date) unknown) (unknown) (no (unknown) (unknown) Globulin (units (unkno wn) date) unknown) (unknown) (no (unknown) (unknown) Glucose 99 (units (unk nown) date) unknown) (unknown) (no (unknown) (unknown) Glucose (units (unkno wn) date) unknown) (unknown) (no [...] extraction () unknown) (unknown) (no (unknown) (unknown) HEENT: moist (units (u nknown) date) mucous membranes, unknown) PERRL (unknown) (no (unknown) (unknown) Hct 28.9 L (units (unk nown) date) unknown) (unknown) (no (unknown) (unknown) Hct (units (unkno wn) date) unknown) (unknown) (no (unknown) (unknown) Hgb 9.5 L (units (unkn own) date) unknown) (unknown) (no (unknown) (unknown) Hgb (units (unkno wn) date) unknown) (unknown) (no (unknown) (unknown) History + Physical (units (unknown) date) Report unknown) (unknown) (no (unknown) (unknown) History of Present (units (unknown) date) Illness unknown) (unknown) (no (unknown) (unknown) Home Medications (units (unknown) date) and Allergies unknown) (unknown) (no (unknown) (unknown) Home Medications (units (unknown) date) unknown) (unknown) (no (unknown) (unknown) I have reviewed (units (unknown) date) home meds and used unknown) all available resources to reconcile the home (unknown) (no (unknown) (unknown) I spent a total of (units (unknown) date) 35 minutes of unknown) critical care time on this patient's care (unknown) (no (unknown) (unknown) INR 1.1 (units (unkno wn) date) unknown) (unknown) (no (unknown) (unknown) INR (units (unkno wn) date) unknown) (unknown) (no (unknown) (unknown) Insomnia (units (unkno wn) date) unknown) (unknown) (no (unknown) (unknown) [facility] (units (unknown) date) [address] unknown) [place] [address] (unknown) (no (unknown) (unknown) Laboratory Results (units (unknown) date) - last 24 hr unknown) (unknown) (no (unknown) (unknown) Labs (units (unkno wn) date) unknown) (unknown) (no (unknown) (unknown) Labs: (units (unkno wn) date) unknown) (unknown) (no (unknown) (unknown) Lipase 337 H (units (u nknown) date) unknown) (unknown) (no (unknown) (unknown) Lipase (units (unkno wn) date) unknown) (unknown) (no (unknown) (unknown) Lymph # (Auto) (units (unknown) date) 1000 L unknown) (unknown) (no (unknown) (unknown) Lymph # (Auto) (units (unknown) date) unknown) (unknown) (no (unknown) (unknown) Lymph % (Auto) (units (unknown) date) 29.3 unknown) (unknown) (no (unknown) (unknown) Lymph % (Auto) (units (unknown) date) unknown) (unknown) (no (unknown) (unknown) MCH 26.5 (units (unkno wn) date) unknown) (unknown) (no (unknown) (unknown) MCH (units (unkno wn) date) unknown) (unknown) (no (unknown) (unknown) MCHC 32.9 (units (unkn own) date) unknown) (unknown) (no (unknown) (unknown) MCHC (units (unkno wn) date) unknown) (unknown) (no (unknown) (unknown) MCV 80.6 (units (unkno wn) date) unknown) (unknown) (no (unknown) (unknown) MCV (units (unkno wn) date) unknown) (unknown) (no (unknown) (unknown) Medical History (units (unknown) date) (Reviewed 08/01/22 unknown) @ 06:02 by Reinaldo Arthur DO) (unknown) (no (unknown) (unknown) Medication (units (unk nown) date) Instructions unknown) Recorded Confirmed Type (unknown) (no (unknown) (unknown) Meds (units (unkno wn) date) unknown) (unknown) (no (unknown) (unknown) Menometrorrhagia (units (unknown) date) unknown) (unknown) (no (unknown) (unknown) Yates # (Auto) 300 (units (unknown) date) unknown) (unknown) (no (unknown) (unknown) Yates # (Auto) (units ( unknown) date) unknown) (unknown) (no (unknown) (unknown) Yates % (Auto) 8.0 (units (unknown) date) unknown) (unknown) (no (unknown) (unknown) Yates % (Auto) (units ( unknown) date) unknown) (unknown) (no (unknown) (unknown) Mother Diabetes (units (unknown) date) mellitus unknown) (unknown) (no (unknown) (unknown) NECK: trachea (units ( unknown) date) midline, no JVD unknown) (unknown) (no (unknown) (unknown) NEURO: awake, (units ( unknown) date) alert, oriented, no unknown) focal deficits (unknown) (no (unknown) (unknown) Narrative (units (unkn own) date) unknown) (unknown) (no (unknown) (unknown) Narrative: (units (unk nown) date) unknown) (unknown) (no (unknown) (unknown) Neut # (Auto) 1900 (units (unknown) date) unknown) (unknown) (no (unknown) (unknown) Neut # (Auto) (units ( unknown) date) unknown) (unknown) (no (unknown) (unknown) Neut % (Auto) 57.6 (units (unknown) date) unknown) (unknown) (no (unknown) (unknown) Neut % (Auto) (units ( unknown) date) unknown) (unknown) (no (unknown) (unknown) Obesity (units (unkno wn) date) unknown) (unknown) (no (unknown) (unknown) Objective (units (unkn own) date) unknown) (unknown) (no (unknown) (unknown) Overweight (units (unk nown) date) unknown) (unknown) (no (unknown) (unknown) Oxygen Delivery (units (unknown) date) Method Room Air unknown) Room Air (unknown) (no (unknown) (unknown) Oxygen Delivery (units (unknown) date) Method Room Air unknown) (unknown) (no (unknown) (unknown) PT 12.2 (units (unkno wn) date) unknown) (unknown) (no (unknown) (unknown) PT (units (unkno wn) date) unknown) (unknown) (no (unknown) (unknown) PULM: clear (units (un known) date) bilaterally unknown) (unknown) (no (unknown) (unknown) Patient History (units (unknown) date) unknown) (unknown) (no (unknown) (unknown) Patient: (units (unkno wn) date) Sarah Connors R unknown) MR#: M (unknown) (no (unknown) (unknown) Plt Count 178 (units ( unknown) date) unknown) (unknown) (no (unknown) (unknown) Plt Count (units (unkn own) date) unknown) (unknown) (no (unknown) (unknown) Potassium 3.5 (units ( unknown) date) unknown) (unknown) (no (unknown) (unknown) Potassium (units (unkn own) date) unknown) (unknown) (no (unknown) (unknown) Provider: (units (unkn own) date) Jabari Sena unknown) D.O. (unknown) (no (unknown) (unknown) Proxy is spouse (units (unknown) date) Rober. unknown) (unknown) (no (unknown) (unknown) Pulse Oximetry 98 (units (unknown) date) 98 unknown) (unknown) (no (unknown) (unknown) Pulse Rate 76 65 (units (unknown) date) unknown) (unknown) (no (unknown) (unknown) RBC 3.59 L (units (unk nown) date) unknown) (unknown) (no (unknown) (unknown) RBC (units (unkno wn) date) unknown) (unknown) (no (unknown) (unknown) RDW 19.7 H (units (unk nown) date) unknown) (unknown) (no (unknown) (unknown) RDW (units (unkno wn) date) unknown) (unknown) (no (unknown) (unknown) Respiratory Rate (units (unknown) date) 18 20 unknown) (unknown) (no (unknown) (unknown) Review of Systems (units (unknown) date) unknown) (unknown) (no (unknown) (unknown) S/P myringotomy (units (unknown) date) with insertion of unknown) tube (unknown) (no (unknown) (unknown) (spontaneous (units (unknown) date) vaginal delivery) unknown) (-09/05/18) (unknown) (no (unknown) (unknown) Safety + (units (unkno wn) date) Behavioral: unknown) (unknown) (no (unknown) (unknown) Salicylates < 1.0 (units (unknown) date) unknown) (unknown) (no (unknown) (unknown) Salicylates (units (un known) date) unknown) (unknown) (no (unknown) (unknown) Signed By: (units (unk nown) date) unknown) (unknown) (no (unknown) (unknown) Smoker (units (unkno wn) date) unknown) (unknown) (no (unknown) (unknown) Smoking Status (units (unknown) date) Former smoker unknown) (unknown) (no (unknown) (unknown) Social History: (units (unknown) date) unknown) (unknown) (no (unknown) (unknown) Sodium 136 L (units (u nknown) date) unknown) (unknown) (no (unknown) (unknown) Sodium (units (unkno wn) date) unknown) (unknown) (no (unknown) (unknown) Sarah june risk (units (unknown) date) is a 31-year-old unknown) female with past medical history of (unknown) (no (unknown) (unknown) Substance Use Type (units (unknown) date) does not use unknown) (unknown) (no (unknown) (unknown) Suicidal Ideation (units (unknown) date) Description None unknown) (unknown) (no (unknown) (unknown) Suicide Plan (units (u nknown) date) Description No Plan unknown) (unknown) (no (unknown) (unknown) Surgical History (units (unknown) date) (Reviewed 08/01/22 unknown) @ 06:02 by Reinaldo Arthur DO) (unknown) (no (unknown) (unknown) TCA's. EtOH (units (un known) date) negative. unknown) (unknown) (no (unknown) (unknown) Temperature 97.7 F (units (unknown) date) unknown) (unknown) (no (unknown) (unknown) This patient will (units (unknown) date) be admitted as unknown) inpatient and will require greater than 2 (unknown) (no (unknown) (unknown) Tobacco + (units (unkn own) date) Substance use: unknown) (unknown) (no (unknown) (unknown) Tobacco type (units (u nknown) date) cigarettes unknown) (unknown) (no (unknown) (unknown) Total Bilirubin (units (unknown) date) 0.7 unknown) (unknown) (no (unknown) (unknown) Total Bilirubin (units (unknown) date) unknown) (unknown) (no (unknown) (unknown) Total Protein 6.8 (units (unknown) date) unknown) (unknown) (no (unknown) (unknown) Total Protein (units ( unknown) date) unknown) (unknown) (no (unknown) (unknown) U Benzodiazepines (units (unknown) date) Scrn Positive H unknown) (unknown) (no (unknown) (unknown) U Benzodiazepines (units (unknown) date) Scrn unknown) (unknown) (no (unknown) (unknown) U Marijuana (THC) (units (unknown) date) Screen Negative unknown) (unknown) (no (unknown) (unknown) U Marijuana (THC) (units (unknown) date) Screen unknown) (unknown) (no (unknown) (unknown) U Methamphetamines (units (unknown) date) Scrn Negative unknown) (unknown) (no (unknown) (unknown) U Methamphetamines (units (unknown) date) Scrn unknown) (unknown) (no (unknown) (unknown) U Opiates 300ng/mL (units (unknown) date) cut Negative unknown) (unknown) (no (unknown) (unknown) U Opiates 300ng/mL (units (unknown) date) cut unknown) (unknown) (no (unknown) (unknown) U Tricyclic (units (un known) date) Antidepress unknown) Positive H (unknown) (no (unknown) (unknown) U Tricyclic (units (un known) date) Antidepress unknown) (unknown) (no (unknown) (unknown) Ur Amphetamines (units (unknown) date) Screen Negative unknown) (unknown) (no (unknown) (unknown) Ur Amphetamines (units (unknown) date) Screen unknown) (unknown) (no (unknown) (unknown) Ur Barbiturates (units (unknown) date) Screen Positive H unknown) (unknown) (no (unknown) (unknown) Ur Barbiturates (units (unknown) date) Screen unknown) (unknown) (no (unknown) (unknown) Ur Bilirubin (units (u nknown) date) Confirm Negative unknown) (unknown) (no (unknown) (unknown) Ur Bilirubin (units (u nknown) date) Confirm unknown) (unknown) (no (unknown) (unknown) Ur Culture (units (unk nown) date) Indicated? Cult not unknown) indicated (unknown) (no (unknown) (unknown) Ur Culture (units (unk nown) date) Indicated? unknown) (unknown) (no (unknown) (unknown) Ur MDMA Scrn (units (u nknown) date) (Ecstasy) Negative unknown) (unknown) (no (unknown) (unknown) Ur MDMA Scrn (units (u nknown) date) (Ecstasy) unknown) (unknown) (no (unknown) (unknown) Ur Oxycodone (units (u nknown) date) Screen Negative unknown) (unknown) (no (unknown) (unknown) Ur Oxycodone (units (u nknown) date) Screen unknown) (unknown) (no (unknown) (unknown) Ur Phencyclidine (units (unknown) date) Scrn Negative unknown) (unknown) (no (unknown) (unknown) Ur Phencyclidine (units (unknown) date) Scrn unknown) (unknown) (no (unknown) (unknown) Ur Squamous Epith (units (unknown) date) Cells 5-10 /hpf H unknown) (unknown) (no (unknown) (unknown) Ur Squamous Epith (units (unknown) date) Cells unknown) (unknown) (no (unknown) (unknown) Urine Bacteria Few (units (unknown) date) (2-10) H unknown) (unknown) (no (unknown) (unknown) Urine Bacteria (units (unknown) date) unknown) (unknown) (no (unknown) (unknown) Urine Cocaine (units ( unknown) date) Screen Negative unknown) (unknown) (no (unknown) (unknown) Urine Cocaine (units ( unknown) date) Screen unknown) (unknown) (no (unknown) (unknown) Urine Methadone (units (unknown) date) Screen Negative unknown) (unknown) (no (unknown) (unknown) Urine Methadone (units (unknown) date) Screen unknown) (unknown) (no (unknown) (unknown) Urine Mucus 3+ H D (units (unknown) date) unknown) (unknown) (no (unknown) (unknown) Urine Mucus (units (un known) date) unknown) (unknown) (no (unknown) (unknown) Urine RBC None (units (unknown) date) seen unknown) (unknown) (no (unknown) (unknown) Urine RBC (units (unkn own) date) unknown) (unknown) (no (unknown) (unknown) Urine WBC 1-5/hpf (units (unknown) date) unknown) (unknown) (no (unknown) (unknown) Urine WBC (units (unkn own) date) unknown) (unknown) (no (unknown) (unknown) Vital Signs (units (un known) date) unknown) (unknown) (no (unknown) (unknown) WBC 3.3 L (units (unkn own) date) unknown) (unknown) (no (unknown) (unknown) WBC (units (unkno wn) date) unknown) (unknown) (no (unknown) (unknown) [Embedded Image (units (unknown) date) Not Available] unknown) (unknown) (no (unknown) (unknown) [METOCLOPRAMIDE] (units (unknown) date) unknown) (unknown) (no (unknown) (unknown) alcohol intake (units (unknown) date) former unknown) (unknown) (no (unknown) (unknown) alcohol intake (units (unknown) date) frequency 3 or more unknown) drinks per day (unknown) (no (unknown) (unknown) depression, (units (un known) date) alcohol abuse and unknown) GERD who presents in acute alcohol withdrawals. (unknown) (no (unknown) (unknown) fluoxetine 10 mg (units (unknown) date) capsule 10 mg PO unknown) DAILY 07/13/22 07/13/22 History (unknown) (no (unknown) (unknown) household members (units (unknown) date) children unknown) (unknown) (no (unknown) (unknown) hydrocodone (units (un known) date) [HYDROCODONE] unknown) AdvReac Unknown VOMITING Verified 07/12/22 16:18 (unknown) (no (unknown) (unknown) hydroxyzine HCl 50 (units (unknown) date) mg tablet 50 mg PO unknown) DAILY 07/13/22 07/13/22 History (unknown) (no (unknown) (unknown) mcg tablet (units (unk nown) date) (Tab-A-Kael) unknown) (unknown) (no (unknown) (unknown) meds. (units (unkno wn) date) unknown) (unknown) (no (unknown) (unknown) metoclopramide (units (unknown) date) Allergy Mild unknown) RASH/HIVES Verified 07/12/22 16:18 (unknown) (no (unknown) (unknown) mg tablet (units (unkn own) date) unknown) (unknown) (no (unknown) (unknown) midnights of (units (u nknown) date) hospital time to unknown) treat acute alcohol withdrawals with DTs. (unknown) (no (unknown) (unknown) multivitamin with (units (unknown) date) folic acid 400 1 unknown) tab PO DAILY #30 tabs 07/14/22 Rx (unknown) (no (unknown) (unknown) pantoprazole 40 mg (units (unknown) date) tablet,delayed 40 unknown) mg PO 0700 #30 tabs 07/14/22 Rx (unknown) (no (unknown) (unknown) quetiapine 300 mg (units (unknown) date) tablet 300 mg PO unknown) DAILY 07/13/22 07/13/22 History (unknown) (no (unknown) (unknown) release (units (unkno wn) date) unknown) (unknown) (no (unknown) (unknown) stated. (units (unkno wn) date) unknown) (unknown) (no (unknown) (unknown) thiamine (units (unkno wn) date) mononitrate (vit unknown) B1) 100 100 mg PO DAILY #30 tabs 07/14/22 Rx (unknown) (no (unknown) (unknown) today; this time (units (unknown) date) is exclusive of unknown) procedural time. (unknown) (no (unknown) (unknown) when able to take (units (unknown) date) oral meds unknown) (unknown) (no (unknown) (unknown) withdrawals (units (unk nown) date) symptoms would like unknown) be out of window. UDS positive benzos, barbs and Result panel 2414 (unknown) (no date) (unknown) (unknown) Negative (units (unkn own) unknown) (unknown) (no date) (unknown) (unknown) Negative (units (unkn own) unknown) Result panel 2415 (unknown) (no date) (unknown) (unknown) 4.71 uiu/ml (unkn own) (unknown) (no date) (unknown) (unknown) 4.71 uiu/ml (unkn own) Result panel 2416 (unknown) (no date) (unknown) (unknown) 1.13 ng/dl (unkn own) (unknown) (no date) (unknown) (unknown) 1.13 ng/dl (unkn own) (unknown) (no date) (unknown) (unknown) 4.71 uiu/ml (unkn own) (unknown) (no date) (unknown) (unknown) 4.71 uiu/ml (unkn own) Result panel 2417 (unknown) (no (unknown) (unknown) (no value) (units (unk nown) date) unknown) (unknown) (no (unknown) (unknown) (past 8 hours): (units (unknown) date) unknown) (unknown) (no (unknown) (unknown) 0.2 MCG/KG/HR (units ( unknown) date) unknown) (unknown) (no (unknown) (unknown) [id number] (units (unkn own) date) unknown) (unknown) (no (unknown) (unknown) 07/13/22] (units (unkn own) date) unknown) (unknown) (no (unknown) (unknown) 07/14/22 [Rx] (units ( unknown) date) unknown) (unknown) (no (unknown) (unknown) 08/01/22 08/01/22 (units (unknown) date) 08/01/22 unknown) (unknown) (no (unknown) (unknown) 08/01/22 05:10 (units (unknown) date) unknown) (unknown) (no (unknown) (unknown) 08/01/22 09:08 (units (unknown) date) unknown) (unknown) (no (unknown) (unknown) 08/01/22 (units (unkno wn) date) unknown) (unknown) (no (unknown) (unknown) 05:00 08/01/22 (units (unknown) date) unknown) (unknown) (no (unknown) (unknown) 05:10 05:10 05:10 (units (unknown) date) unknown) (unknown) (no (unknown) (unknown) 05:10 05:10 05:20 (units (unknown) date) unknown) (unknown) (no (unknown) (unknown) 05:20 05:20 08:05 (units (unknown) date) unknown) (unknown) (no (unknown) (unknown) 07:44 08/01/22 (units (unknown) date) unknown) (unknown) (no (unknown) (unknown) 08:10 (units (unkno wn) date) unknown) (unknown) (no (unknown) (unknown) 08:41 (units (unkno wn) date) unknown) (unknown) (no (unknown) (unknown) ALT 24 (units (unkno wn) date) unknown) (unknown) (no (unknown) (unknown) ALT (units (unkno wn) date) unknown) (unknown) (no (unknown) (unknown) AST 67 H (units (unkno wn) date) unknown) (unknown) (no (unknown) (unknown) AST (units (unkno wn) date) unknown) (unknown) (no (unknown) (unknown) Acetaminophen < 10 (units (unknown) date) unknown) (unknown) (no (unknown) (unknown) Acetaminophen (units ( unknown) date) unknown) (unknown) (no (unknown) (unknown) Age/Sex: 31 / F (units (unknown) date) unknown) (unknown) (no (unknown) (unknown) Albumin 4.1 (units (un known) date) unknown) (unknown) (no (unknown) (unknown) Albumin (units (unkno wn) date) unknown) (unknown) (no (unknown) (unknown) Albumin/Globulin (units (unknown) date) Ratio 1.5 unknown) (unknown) (no (unknown) (unknown) Albumin/Globulin (units (unknown) date) Ratio unknown) (unknown) (no (unknown) (unknown) Alcohol withdrawal (units (unknown) date) delirium, acute, unknown) hyperactive (unknown) (no (unknown) (unknown) Alcoholism (units (unk nown) date) unknown) (unknown) (no (unknown) (unknown) Alkaline (units (unkno wn) date) Phosphatase 52 unknown) (unknown) (no (unknown) (unknown) Alkaline (units (unkno wn) date) Phosphatase unknown) (unknown) (no (unknown) (unknown) Anemia (-2018) (units (unknown) date) unknown) (unknown) (no (unknown) (unknown) Assessment + Plan (units (unknown) date) unknown) (unknown) (no (unknown) (unknown) BID SANDY (units (unkno wn) date) Administration unknown) (unknown) (no (unknown) (unknown) BUN 14 (units (unkno wn) date) unknown) (unknown) (no (unknown) (unknown) BUN (units (unkno wn) date) unknown) (unknown) (no (unknown) (unknown) BUN/Creatinine (units (unknown) date) Ratio 19.4 unknown) (unknown) (no (unknown) (unknown) BUN/Creatinine (units (unknown) date) Ratio unknown) (unknown) (no (unknown) (unknown) Baso # (Auto) 0 (units (unknown) date) unknown) (unknown) (no (unknown) (unknown) Baso # (Auto) (units ( unknown) date) unknown) (unknown) (no (unknown) (unknown) Baso % (Auto) 1.5 (units (unknown) date) unknown) (unknown) (no (unknown) (unknown) Baso % (Auto) (units ( unknown) date) unknown) (unknown) (no (unknown) (unknown) Blood Pressure (units (unknown) date) 92/67 98/53 L unknown) 102/73 (unknown) (no (unknown) (unknown) Calcium 8.9 (units (un known) date) unknown) (unknown) (no (unknown) (unknown) Calcium (units (unkno wn) date) unknown) (unknown) (no (unknown) (unknown) Carbon Dioxide 24 (units (unknown) date) unknown) (unknown) (no (unknown) (unknown) Carbon Dioxide (units (unknown) date) unknown) (unknown) (no (unknown) (unknown) Chief complaint: (units (unknown) date) Altered LOC unknown) (unknown) (no (unknown) (unknown) Chloride 104 (units (u nknown) date) unknown) (unknown) (no (unknown) (unknown) Chloride IV Not (units (unknown) date) Given unknown) (unknown) (no (unknown) (unknown) Chloride (units (unkno wn) date) unknown) (unknown) (no (unknown) (unknown) Consent obtained (units (unknown) date) for unknown) 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: Yes (unknown) (no (unknown) (unknown) Consult details (units (unknown) date) unknown) (unknown) (no (unknown) (unknown) Creatinine 0.72 (units (unknown) date) unknown) (unknown) (no (unknown) (unknown) Creatinine (units (unk nown) date) unknown) (unknown) (no (unknown) (unknown) Critical Care (units ( unknown) date) time: unknown) (unknown) (no (unknown) (unknown) Current (units (unkno wn) date) Medications unknown) (unknown) (no (unknown) (unknown) DAILY SANDY (units (unkn own) date) Administration unknown) (unknown) (no (unknown) (unknown) DAILY SANDY (units (unkn own) date) unknown) (unknown) (no (unknown) (unknown) : 1990 (units (unknown) date) Acct:[id number] unknown) (unknown) (no (unknown) (unknown) Date Patient Seen: (units (unknown) date) 08/01/22 unknown) (unknown) (no (unknown) (unknown) Date of Service: (units (unknown) date) 08/01/22 unknown) (unknown) (no (unknown) (unknown) Eos # (Auto) 100 (units (unknown) date) unknown) (unknown) (no (unknown) (unknown) Eos # (Auto) (units (u nknown) date) unknown) (unknown) (no (unknown) (unknown) Eos % (Auto) 3.6 (units (unknown) date) unknown) (unknown) (no (unknown) (unknown) Eos % (Auto) (units (u nknown) date) unknown) (unknown) (no (unknown) (unknown) Estimated GFR > 60 (units (unknown) date) unknown) (unknown) (no (unknown) (unknown) Estimated GFR (units ( unknown) date) unknown) (unknown) (no (unknown) (unknown) Ethyl Alcohol < 10 (units (unknown) date) unknown) (unknown) (no (unknown) (unknown) Ethyl Alcohol (units ( unknown) date) unknown) (unknown) (no (unknown) (unknown) Exam (units (unkno wn) date) unknown) (unknown) (no (unknown) (unknown) Family History (units (unknown) date) (Reviewed 08/01/22 unknown) @ 06:02 by Reinaldo Arthur DO) (unknown) (no (unknown) (unknown) Family/Other (units (u nknown) date) Alcoholism unknown) (unknown) (no (unknown) (unknown) Family/Other (units (u nknown) date) Diabetes mellitus unknown) (unknown) (no (unknown) (unknown) Father Alcoholism (units (unknown) date) unknown) (unknown) (no (unknown) (unknown) Free T4 1.13 (units (u nknown) date) unknown) (unknown) (no (unknown) (unknown) Free T4 (units (unkno wn) date) unknown) (unknown) (no (unknown) (unknown) Generic Name Dose (units (unknown) date) Route Start Last unknown) Admin (unknown) (no (unknown) (unknown) Globulin 2.7 (units (u nknown) date) unknown) (unknown) (no (unknown) (unknown) Globulin (units (unkno wn) date) unknown) (unknown) (no (unknown) (unknown) Glucose 99 (units (unk nown) date) unknown) (unknown) (no (unknown) (unknown) Glucose (units (unkno wn) date) unknown) (unknown) (no [...] extraction () unknown) (unknown) (no (unknown) (unknown) Hct 28.9 L (units (unk nown) date) unknown) (unknown) (no (unknown) (unknown) Hct (units (unkno wn) date) unknown) (unknown) (no (unknown) (unknown) Hgb 9.5 L (units (unkn own) date) unknown) (unknown) (no (unknown) (unknown) Hgb (units (unkno wn) date) unknown) (unknown) (no (unknown) (unknown) History of Present (units (unknown) date) Illness unknown) (unknown) (no (unknown) (unknown) Home Medications (units (unknown) date) unknown) (unknown) (no (unknown) (unknown) Hydroxyzine (units (un known) date) Pamoate 25 Mg unknown) Capsule PO 50 mg (unknown) (no (unknown) (unknown) Hydroxyzine (units (un known) date) Pamoate 50 mg unknown) 08/01/22 09:00 08/01/22 08:22 (unknown) (no (unknown) (unknown) I spent a total of (units (unknown) date) [] minutes of unknown) critical care time on this patient's care (unknown) (no (unknown) (unknown) IF CAMERA (units (unkn own) date) ACTIVATED, patient unknown) seen via real-time interactive audiovisual (unknown) (no (unknown) (unknown) INR 1.1 (units (unkno wn) date) unknown) (unknown) (no (unknown) (unknown) INR (units (unkno wn) date) unknown) (unknown) (no (unknown) (unknown) Insomnia (units (unkno wn) date) unknown) (unknown) (no (unknown) (unknown) [facility] (units (unknown) date) [address] [place] [address] unknown) [place] [address] (unknown) (no (unknown) (unknown) Laboratory Results (units (unknown) date) - last 24 hr unknown) (unknown) (no (unknown) (unknown) Labs (units (unkno wn) date) unknown) (unknown) (no (unknown) (unknown) Labs: (units (unkno wn) date) unknown) (unknown) (no (unknown) (unknown) Lipase 337 H (units (u nknown) date) unknown) (unknown) (no (unknown) (unknown) Lipase (units (unkno wn) date) unknown) (unknown) (no (unknown) (unknown) Lymph # (Auto) (units (unknown) date) 1000 L unknown) (unknown) (no (unknown) (unknown) Lymph # (Auto) (units (unknown) date) unknown) (unknown) (no (unknown) (unknown) Lymph % (Auto) (units (unknown) date) 29.3 unknown) (unknown) (no (unknown) (unknown) Lymph % (Auto) (units (unknown) date) unknown) (unknown) (no (unknown) (unknown) MCH 26.5 (units (unkno wn) date) unknown) (unknown) (no (unknown) (unknown) MCH (units (unkno wn) date) unknown) (unknown) (no (unknown) (unknown) MCHC 32.9 (units (unkn own) date) unknown) (unknown) (no (unknown) (unknown) MCHC (units (unkno wn) date) unknown) (unknown) (no (unknown) (unknown) MCV 80.6 (units (unkno wn) date) unknown) (unknown) (no (unknown) (unknown) MCV (units (unkno wn) date) unknown) (unknown) (no (unknown) (unknown) Magnesium 2.0 (units ( unknown) date) unknown) (unknown) (no (unknown) (unknown) Magnesium (units (unkn own) date) unknown) (unknown) (no (unknown) (unknown) Medical History (units (unknown) date) (Reviewed 08/01/22 unknown) @ 06:02 by Reinaldo Artuhr DO) (unknown) (no (unknown) (unknown) Medications: (units (u nknown) date) unknown) (unknown) (no (unknown) (unknown) Menometrorrhagia (units (unknown) date) unknown) (unknown) (no (unknown) (unknown) Yates # (Auto) 300 (units (unknown) date) unknown) (unknown) (no (unknown) (unknown) Yates # (Auto) (units ( unknown) date) unknown) (unknown) (no (unknown) (unknown) Yates % (Auto) 8.0 (units (unknown) date) unknown) (unknown) (no (unknown) (unknown) Yates % (Auto) (units ( unknown) date) unknown) (unknown) (no (unknown) (unknown) Mother Diabetes (units (unknown) date) mellitus unknown) (unknown) (no (unknown) (unknown) Neut # (Auto) 1900 (units (unknown) date) unknown) (unknown) (no (unknown) (unknown) Neut # (Auto) (units ( unknown) date) unknown) (unknown) (no (unknown) (unknown) Neut % (Auto) 57.6 (units (unknown) date) unknown) (unknown) (no (unknown) (unknown) Neut % (Auto) (units ( unknown) date) unknown) (unknown) (no (unknown) (unknown) Obesity (units (unkno wn) date) unknown) (unknown) (no (unknown) (unknown) Objective (units (unkn own) date) unknown) (unknown) (no (unknown) (unknown) Other (units (unkno wn) date) participants/roles: unknown) Bedside RN and Dr. Sena (unknown) (no (unknown) (unknown) Overweight (units (unk nown) date) unknown) (unknown) (no (unknown) (unknown) Oxygen Delivery (units (unknown) date) Method Room Air unknown) Room Air Room Air (unknown) (no (unknown) (unknown) Oxygen Delivery (units (unknown) date) Method Room Air unknown) (unknown) (no (unknown) (unknown) PFSH (units (unkno wn) date) unknown) (unknown) (no (unknown) (unknown) PT 12.2 (units (unkno wn) date) unknown) (unknown) (no (unknown) (unknown) PT (units (unkno wn) date) unknown) (unknown) (no (unknown) (unknown) Pantoprazole 40 Mg (units (unknown) date) Vial IV 40 mg unknown) (unknown) (no (unknown) (unknown) Pantoprazole (units (u nknown) date) Sodium 40 mg unknown) 08/01/22 09:00 08/01/22 08:21 (unknown) (no (unknown) (unknown) Patient Location: (units (unknown) date) ICU unknown) (unknown) (no (unknown) (unknown) Patient: (units (unkno wn) date) Sarah Connors R unknown) MR#: M (unknown) (no (unknown) (unknown) Phenobarbital 60 (units (unknown) date) mg 08/01/22 09:00 unknown) 08/01/22 08:21 (unknown) (no (unknown) (unknown) Phenobarbital 65 (units (unknown) date) Mg/Ml Vial IV 60 mg unknown) (unknown) (no (unknown) (unknown) Plt Count 178 (units ( unknown) date) unknown) (unknown) (no (unknown) (unknown) Plt Count (units (unkn own) date) unknown) (unknown) (no (unknown) (unknown) Potassium 3.5 (units ( unknown) date) unknown) (unknown) (no (unknown) (unknown) Potassium (units (unkn own) date) unknown) (unknown) (no (unknown) (unknown) Precedex IV 1.5 (units (unknown) date) mcg/kg/hr unknown) (unknown) (no (unknown) (unknown) Protocol (units (unkno wn) date) unknown) (unknown) (no (unknown) (unknown) Provider location (units (unknown) date) (State): [place] unknown) (unknown) (no (unknown) (unknown) Provider: (units (unkn own) date) Paulo Dixon MD unknown) (unknown) (no (unknown) (unknown) Pulse Oximetry 98 (units (unknown) date) 98 98 unknown) (unknown) (no (unknown) (unknown) Pulse Rate 76 65 (units (unknown) date) 87 unknown) (unknown) (no (unknown) (unknown) RBC 3.59 L (units (unk nown) date) unknown) (unknown) (no (unknown) (unknown) RBC (units (unkno wn) date) unknown) (unknown) (no (unknown) (unknown) RDW 19.7 H (units (unk nown) date) unknown) (unknown) (no (unknown) (unknown) RDW (units (unkno wn) date) unknown) (unknown) (no (unknown) (unknown) Reason for (units (unk nown) date) consult: Alcohol unknown) withdrawal (unknown) (no (unknown) (unknown) Requesting (units (unk nown) date) provider: Jabari Lion unknown) Jaida (unknown) (no (unknown) (unknown) Respiratory Rate (units (unknown) date) 18 20 20 unknown) (unknown) (no (unknown) (unknown) S/P myringotomy (units (unknown) date) with insertion of unknown) tube (unknown) (no (unknown) (unknown) SARS-CoV-2 (PCR) (units (unknown) date) Negative unknown) (unknown) (no (unknown) (unknown) SARS-CoV-2 (PCR) (units (unknown) date) unknown) (unknown) (no (unknown) (unknown) (spontaneous (units (unknown) date) vaginal delivery) unknown) (-09/05/18) (unknown) (no (unknown) (unknown) Salicylates < 1.0 (units (unknown) date) unknown) (unknown) (no (unknown) (unknown) Salicylates (units (un known) date) unknown) (unknown) (no (unknown) (unknown) Signed By: (units (unk nown) date) unknown) (unknown) (no (unknown) (unknown) Smoker (units (unkno wn) date) unknown) (unknown) (no (unknown) (unknown) Smoking Status: (units (unknown) date) Former smoker unknown) (unknown) (no (unknown) (unknown) Social History (units (unknown) date) (Reviewed 08/01/22 unknown) @ 06:02 by Reinaldo Arthur DO) (unknown) (no (unknown) (unknown) Sodium 136 L (units (u nknown) date) unknown) (unknown) (no (unknown) (unknown) Sodium (units (unkno wn) date) unknown) (unknown) (no (unknown) (unknown) Surgical History (units (unknown) date) (Reviewed 08/01/22 unknown) @ 06:02 by Reinaldo Arthur DO) (unknown) (no (unknown) (unknown) TITRATE SANDY 20.241 (units (unknown) date) mls/hr unknown) (unknown) (no (unknown) (unknown) TSH 4.71 H (units (unk nown) date) unknown) (unknown) (no (unknown) (unknown) TSH (units (unkno wn) date) unknown) (unknown) (no (unknown) (unknown) Teleintensivist (units (unknown) date) Consult Note unknown) (unknown) (no (unknown) (unknown) Temperature 97.7 F (units (unknown) date) unknown) (unknown) (no (unknown) (unknown) Thiamine HCl 100 (units (unknown) date) mg/ Sodium 101 mls unknown) @ 404 mls/hr 08/01/22 09:00 08/01/22 (unknown) (no (unknown) (unknown) Time Spent With (units (unknown) date) Patient unknown) (unknown) (no (unknown) (unknown) Titration (units (unkn own) date) unknown) (unknown) (no (unknown) (unknown) Total Bilirubin (units (unknown) date) 0.7 unknown) (unknown) (no (unknown) (unknown) Total Bilirubin (units (unknown) date) unknown) (unknown) (no (unknown) (unknown) Total Protein 6.8 (units (unknown) date) unknown) (unknown) (no (unknown) (unknown) Total Protein (units ( unknown) date) unknown) (unknown) (no (unknown) (unknown) Trade Name Freq (units (unknown) date) PRN Reason Stop unknown) Dose Admin (unknown) (no (unknown) (unknown) U Benzodiazepines (units (unknown) date) Scrn Positive H unknown) (unknown) (no (unknown) (unknown) U Benzodiazepines (units (unknown) date) Scrn unknown) (unknown) (no (unknown) (unknown) U Marijuana (THC) (units (unknown) date) Screen Negative unknown) (unknown) (no (unknown) (unknown) U Marijuana (THC) (units (unknown) date) Screen unknown) (unknown) (no (unknown) (unknown) U Methamphetamines (units (unknown) date) Scrn Negative unknown) (unknown) (no (unknown) (unknown) U Methamphetamines (units (unknown) date) Scrn unknown) (unknown) (no (unknown) (unknown) U Opiates 300ng/mL (units (unknown) date) cut Negative unknown) (unknown) (no (unknown) (unknown) U Opiates 300ng/mL (units (unknown) date) cut unknown) (unknown) (no (unknown) (unknown) U Tricyclic (units (un known) date) Antidepress unknown) Positive H (unknown) (no (unknown) (unknown) U Tricyclic (units (un known) date) Antidepress unknown) (unknown) (no (unknown) (unknown) Ur Amphetamines (units (unknown) date) Screen Negative unknown) (unknown) (no (unknown) (unknown) Ur Amphetamines (units (unknown) date) Screen unknown) (unknown) (no (unknown) (unknown) Ur Barbiturates (units (unknown) date) Screen Positive H unknown) (unknown) (no (unknown) (unknown) Ur Barbiturates (units (unknown) date) Screen unknown) (unknown) (no (unknown) (unknown) Ur Bilirubin (units (u nknown) date) Confirm Negative unknown) (unknown) (no (unknown) (unknown) Ur Bilirubin (units (u nknown) date) Confirm unknown) (unknown) (no (unknown) (unknown) Ur Culture (units (unk nown) date) Indicated? Cult not unknown) indicated (unknown) (no (unknown) (unknown) Ur Culture (units (unk nown) date) Indicated? unknown) (unknown) (no (unknown) (unknown) Ur MDMA Scrn (units (u nknown) date) (Ecstasy) Negative unknown) (unknown) (no (unknown) (unknown) Ur MDMA Scrn (units (u nknown) date) (Ecstasy) unknown) (unknown) (no (unknown) (unknown) Ur Oxycodone (units (u nknown) date) Screen Negative unknown) (unknown) (no (unknown) (unknown) Ur Oxycodone (units (u nknown) date) Screen unknown) (unknown) (no (unknown) (unknown) Ur Phencyclidine (units (unknown) date) Scrn Negative unknown) (unknown) (no (unknown) (unknown) Ur Phencyclidine (units (unknown) date) Scrn unknown) (unknown) (no (unknown) (unknown) Ur Squamous Epith (units (unknown) date) Cells 5-10 /hpf H unknown) (unknown) (no (unknown) (unknown) Ur Squamous Epith (units (unknown) date) Cells unknown) (unknown) (no (unknown) (unknown) Urine Bacteria Few (units (unknown) date) (2-10) H unknown) (unknown) (no (unknown) (unknown) Urine Bacteria (units (unknown) date) unknown) (unknown) (no (unknown) (unknown) Urine Cocaine (units ( unknown) date) Screen Negative unknown) (unknown) (no (unknown) (unknown) Urine Cocaine (units ( unknown) date) Screen unknown) (unknown) (no (unknown) (unknown) Urine Methadone (units (unknown) date) Screen Negative unknown) (unknown) (no (unknown) (unknown) Urine Methadone (units (unknown) date) Screen unknown) (unknown) (no (unknown) (unknown) Urine Mucus 3+ H D (units (unknown) date) unknown) (unknown) (no (unknown) (unknown) Urine Mucus (units (un known) date) unknown) (unknown) (no (unknown) (unknown) Urine RBC None (units (unknown) date) seen unknown) (unknown) (no (unknown) (unknown) Urine RBC (units (unkn own) date) unknown) (unknown) (no (unknown) (unknown) Urine WBC 1-5/hpf (units (unknown) date) unknown) (unknown) (no (unknown) (unknown) Urine WBC (units (unkn own) date) unknown) (unknown) (no (unknown) (unknown) Visit Medications (units (unknown) date) (administered) unknown) (unknown) (no (unknown) (unknown) Vital Signs (units (un known) date) unknown) (unknown) (no (unknown) (unknown) WBC 3.3 L (units (unkn own) date) unknown) (unknown) (no (unknown) (unknown) WBC (units (unkno wn) date) unknown) (unknown) (no (unknown) (unknown) [Embedded Image (units (unknown) date) Not Available] unknown) (unknown) (no (unknown) (unknown) [Rx] (units (unkno wn) date) unknown) (unknown) (no (unknown) (unknown) alcohol intake: (units (unknown) date) former unknown) (unknown) (no (unknown) (unknown) communication: (units (unknown) date) Camera activated unknown) (unknown) (no (unknown) (unknown) current (units (unkno wn) date) occupational unknown) exposures/hazards: Yes (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 with Pandemic ) (unknown) (no (unknown) (unknown) dexmedeTOMIDine in (units (unknown) date) 0.9 % NaCL 400 mcg unknown) in 100 mls @ 2.699 mls/hr 03/22/23 08:15 (unknown) (no (unknown) (unknown) education level: (units (unknown) date) college unknown) (unknown) (no (unknown) (unknown) renee/zoroastrianism: (units (unknown) date) Buddhist unknown) (unknown) (no (unknown) (unknown) fluoxetine 10 mg (units (unknown) date) capsule 10 mg PO unknown) DAILY 07/13/22 [History Confirmed 07/13/22] (unknown) (no (unknown) (unknown) household members: (units (unknown) date) children unknown) (unknown) (no (unknown) (unknown) hydroxyzine HCl 50 (units (unknown) date) mg tablet 50 mg PO unknown) DAILY 07/13/22 [History Confirmed (unknown) (no (unknown) (unknown) marital status: (units (unknown) date) unknown) (unknown) (no (unknown) (unknown) multivitamin with (units (unknown) date) folic acid 400 mcg unknown) tablet (Tab-A-Kael) 1 tab PO DAILY #30 tabs (unknown) (no (unknown) (unknown) number of (units (unkn own) date) children: 1 unknown) (unknown) (no (unknown) (unknown) occupational (units (u nknown) date) status: employed unknown) (unknown) (no (unknown) (unknown) pantoprazole 40 mg (units (unknown) date) tablet,delayed unknown) release 40 mg PO 0700 #30 tabs 07/14/22 [Rx] (unknown) (no (unknown) (unknown) quetiapine 300 mg (units (unknown) date) tablet 300 mg PO unknown) DAILY 07/13/22 [History Confirmed 07/13/22] (unknown) (no (unknown) (unknown) second hand (units (un known) date) exposure: No unknown) (growing up as a child - not currently) (unknown) (no (unknown) (unknown) special renee (units ( unknown) date) needs: No unknown) (unknown) (no (unknown) (unknown) substance use (units ( unknown) date) type: does not use unknown) (unknown) (no (unknown) (unknown) thiamine (units (unkno wn) date) mononitrate (vit unknown) B1) 100 mg tablet 100 mg PO DAILY #30 tabs 07/14/22 (unknown) (no (unknown) (unknown) today; this time (units (unknown) date) is exclusive of unknown) procedural time. Result panel [id number] (unknown) (no date) (unknown) (unknown) 11.9 ng/ml (unkn own) (unknown) (no date) (unknown) (unknown) 11.9 ng/ml (unkn own) (unknown) (no date) (unknown) (unknown) 401 pg/ml (unkn own) (unknown) (no date) (unknown) (unknown) 401 pg/ml (unkn own) Result panel 2419 (unknown) (no date) (unknown) (unknown) Not Detected (units ( unknown) unknown) Result panel 2420 (unknown) (no (unknown) (unknown) (no value) (units (unk nown) date) unknown) (unknown) (no (unknown) (unknown) # GERD (units (unkno wn) date) unknown) (unknown) (no (unknown) (unknown) # acute alcohol (units (unknown) date) withdrawal with unknown) delirium tremens (unknown) (no (unknown) (unknown) # depression and (units (unknown) date) anxiety unknown) (unknown) (no (unknown) (unknown) # normocytic (units (u nknown) date) anemia unknown) (unknown) (no (unknown) (unknown) (past 8 hours): (units (unknown) date) unknown) (unknown) (no (unknown) (unknown) -CIWA protocol (units (unknown) date) with Ativan, unknown) phenobarbital 60 mg IV b.i.d., Librium 50 q.6 hours (unknown) (no (unknown) (unknown) -MV, thiamine and (units (unknown) date) B6 daily unknown) (unknown) (no (unknown) (unknown) -appears to be (units (unknown) date) chronic unknown) (unknown) (no (unknown) (unknown) -appreciate (units (un known) date) tele-ICU unknown) consultation (unknown) (no (unknown) (unknown) -check B12/folate (units (unknown) date) unknown) (unknown) (no (unknown) (unknown) -continue PPI (units ( unknown) date) unknown) (unknown) (no (unknown) (unknown) -continue Precedex (units (unknown) date) drip until and unknown) benzos and barbiturates can take effect (unknown) (no (unknown) (unknown) -continue home (units (unknown) date) Prozac when able to unknown) take po (unknown) (no (unknown) (unknown) -no evidence of (units (unknown) date) bleeding unknown) (unknown) (no (unknown) (unknown) -patient states (units (unknown) date) last drink 5 days unknown) ago, but unclear if true given current (unknown) (no (unknown) (unknown) [id number] (units (unkn own) date) unknown) (unknown) (no (unknown) (unknown) 08/01/22 08/01/22 (units (unknown) date) 08/01/22 unknown) (unknown) (no (unknown) (unknown) 08/01/22 05:10 (units (unknown) date) unknown) (unknown) (no (unknown) (unknown) 08/01/22 1427 (units ( unknown) date) unknown) (unknown) (no (unknown) (unknown) 08/01/22 (units (unkno wn) date) unknown) (unknown) (no (unknown) (unknown) 05:00 08/01/22 (units (unknown) date) unknown) (unknown) (no (unknown) (unknown) 05:10 05:10 05:10 (units (unknown) date) unknown) (unknown) (no (unknown) (unknown) 05:20 05:20 05:20 (units (unknown) date) unknown) (unknown) (no (unknown) (unknown) 07:44 (units (unkno wn) date) unknown) (unknown) (no (unknown) (unknown) ABD: soft, (units (unk nown) date) nontender, unknown) nondistended, no organomegaly (unknown) (no (unknown) (unknown) ALT 24 (units (unkno wn) date) unknown) (unknown) (no (unknown) (unknown) ALT (units (unkno wn) date) unknown) (unknown) (no (unknown) (unknown) AST 67 H (units (unkno wn) date) unknown) (unknown) (no (unknown) (unknown) AST (units (unkno wn) date) unknown) (unknown) (no (unknown) (unknown) Acetaminophen < 10 (units (unknown) date) unknown) (unknown) (no (unknown) (unknown) Acetaminophen (units ( unknown) date) unknown) (unknown) (no (unknown) (unknown) Age/Sex: 31 / F (units (unknown) date) unknown) (unknown) (no (unknown) (unknown) Albumin 4.1 (units (un known) date) unknown) (unknown) (no (unknown) (unknown) Albumin (units (unkno wn) date) unknown) (unknown) (no (unknown) (unknown) Albumin/Globulin (units (unknown) date) Ratio 1.5 unknown) (unknown) (no (unknown) (unknown) Albumin/Globulin (units (unknown) date) Ratio unknown) (unknown) (no (unknown) (unknown) Alcohol withdrawal (units (unknown) date) delirium, acute, unknown) hyperactive (unknown) (no (unknown) (unknown) Alcoholism (units (unk nown) date) unknown) (unknown) (no (unknown) (unknown) Alkaline (units (unkno wn) date) Phosphatase 52 unknown) (unknown) (no (unknown) (unknown) Alkaline (units (unkno wn) date) Phosphatase unknown) (unknown) (no (unknown) (unknown) All other systems (units (unknown) date) reviewed with the unknown) patient and are negative unless otherwise (unknown) (no (unknown) (unknown) Allergies (units (unkn own) date) unknown) (unknown) (no (unknown) (unknown) Allergy/AdvReac (units (unknown) date) Type Severity unknown) Reaction Status Date / Time (unknown) (no (unknown) (unknown) Anemia (-2018) (units (unknown) date) unknown) (unknown) (no (unknown) (unknown) Assessment + Plan (units (unknown) date) narrative: unknown) (unknown) (no (unknown) (unknown) Assessment + Plan (units (unknown) date) unknown) (unknown) (no (unknown) (unknown) BUN 14 (units (unkno wn) date) unknown) (unknown) (no (unknown) (unknown) BUN (units (unkno wn) date) unknown) (unknown) (no (unknown) (unknown) BUN/Creatinine (units (unknown) date) Ratio 19.4 unknown) (unknown) (no (unknown) (unknown) BUN/Creatinine (units (unknown) date) Ratio unknown) (unknown) (no (unknown) (unknown) Baso # (Auto) 0 (units (unknown) date) unknown) (unknown) (no (unknown) (unknown) Baso # (Auto) (units ( unknown) date) unknown) (unknown) (no (unknown) (unknown) Baso % (Auto) 1.5 (units (unknown) date) unknown) (unknown) (no (unknown) (unknown) Baso % (Auto) (units ( unknown) date) unknown) (unknown) (no (unknown) (unknown) Blood Pressure (units (unknown) date) 92/67 98/53 L unknown) (unknown) (no (unknown) (unknown) COVID negative. (units (unknown) date) unknown) (unknown) (no (unknown) (unknown) CV: regular rate (units (unknown) date) and rhythm, no unknown) murmurs (unknown) (no (unknown) (unknown) Calcium 8.9 (units (un known) date) unknown) (unknown) (no (unknown) (unknown) Calcium (units (unkno wn) date) unknown) (unknown) (no (unknown) (unknown) Carbon Dioxide 24 (units (unknown) date) unknown) (unknown) (no (unknown) (unknown) Carbon Dioxide (units (unknown) date) unknown) (unknown) (no (unknown) (unknown) Chief complaint: (units (unknown) date) Altered LOC unknown) (unknown) (no (unknown) (unknown) Chloride 104 (units (u nknown) date) unknown) (unknown) (no (unknown) (unknown) Chloride (units (unkno wn) date) unknown) (unknown) (no (unknown) (unknown) Code status is (units (unknown) date) full code. unknown) (unknown) (no (unknown) (unknown) Creatinine 0.72 (units (unknown) date) unknown) (unknown) (no (unknown) (unknown) Creatinine (units (unk nown) date) unknown) (unknown) (no (unknown) (unknown) : 1990 (units (unknown) date) Acct:[id number] unknown) (unknown) (no (unknown) (unknown) DVT prophylaxis (units (unknown) date) with SCDs. unknown) (unknown) (no (unknown) (unknown) Date Patient Seen: (units (unknown) date) 08/01/22 unknown) (unknown) (no (unknown) (unknown) Date of Service: (units (unknown) date) 08/01/22 unknown) (unknown) (no (unknown) (unknown) EXT: warm and well (units (unknown) date) perfused with no unknown) edema (unknown) (no (unknown) (unknown) Eos # (Auto) 100 (units (unknown) date) unknown) (unknown) (no (unknown) (unknown) Eos # (Auto) (units (u nknown) date) unknown) (unknown) (no (unknown) (unknown) Eos % (Auto) 3.6 (units (unknown) date) unknown) (unknown) (no (unknown) (unknown) Eos % (Auto) (units (u nknown) date) unknown) (unknown) (no (unknown) (unknown) Estimated GFR > 60 (units (unknown) date) unknown) (unknown) (no (unknown) (unknown) Estimated GFR (units ( unknown) date) unknown) (unknown) (no (unknown) (unknown) Ethyl Alcohol < 10 (units (unknown) date) unknown) (unknown) (no (unknown) (unknown) Ethyl Alcohol (units ( unknown) date) unknown) (unknown) (no (unknown) (unknown) Exam Narrative: (units (unknown) date) unknown) (unknown) (no (unknown) (unknown) Exam (units (unkno wn) date) unknown) (unknown) (no (unknown) (unknown) Family + Social (units (unknown) date) History unknown) (unknown) (no (unknown) (unknown) Family History (units (unknown) date) (Reviewed 08/01/22 unknown) @ 06:02 by Reinaldo Arthur DO) (unknown) (no (unknown) (unknown) Family/Other (units (u nknown) date) Alcoholism unknown) (unknown) (no (unknown) (unknown) Family/Other (units (u nknown) date) Diabetes mellitus unknown) (unknown) (no (unknown) (unknown) Father Alcoholism (units (unknown) date) unknown) (unknown) (no (unknown) (unknown) GEN: no acute (units ( unknown) date) distress, sleeping unknown) (unknown) (no (unknown) (unknown) Globulin 2.7 (units (u nknown) date) unknown) (unknown) (no (unknown) (unknown) Globulin (units (unkno wn) date) unknown) (unknown) (no (unknown) (unknown) Glucose 99 (units (unk nown) date) unknown) (unknown) (no (unknown) (unknown) Glucose (units (unkno wn) date) unknown) (unknown) (no [...] extraction () unknown) (unknown) (no (unknown) (unknown) HEENT: moist (units (u nknown) date) mucous membranes, unknown) PERRL (unknown) (no (unknown) (unknown) Hct 28.9 L (units (unk nown) date) unknown) (unknown) (no (unknown) (unknown) Hct (units (unkno wn) date) unknown) (unknown) (no (unknown) (unknown) Hgb 9.5 L (units (unkn own) date) unknown) (unknown) (no (unknown) (unknown) Hgb (units (unkno wn) date) unknown) (unknown) (no (unknown) (unknown) History + Physical (units (unknown) date) Report unknown) (unknown) (no (unknown) (unknown) History of Present (units (unknown) date) Illness unknown) (unknown) (no (unknown) (unknown) Home Medications (units (unknown) date) and Allergies unknown) (unknown) (no (unknown) (unknown) Home Medications (units (unknown) date) unknown) (unknown) (no (unknown) (unknown) I have reviewed (units (unknown) date) home meds and used unknown) all available resources to reconcile the home (unknown) (no (unknown) (unknown) I spent a total of (units (unknown) date) 35 minutes of unknown) critical care time on this patient's care (unknown) (no (unknown) (unknown) INR 1.1 (units (unkno wn) date) unknown) (unknown) (no (unknown) (unknown) INR (units (unkno wn) date) unknown) (unknown) (no (unknown) (unknown) Insomnia (units (unkno wn) date) unknown) (unknown) (no (unknown) (unknown) [facility] (units (unknown) date) [address] [place] [address] unknown) [place] [address] (unknown) (no (unknown) (unknown) Laboratory Results (units (unknown) date) - last 24 hr unknown) (unknown) (no (unknown) (unknown) Labs (units (unkno wn) date) unknown) (unknown) (no (unknown) (unknown) Labs: (units (unkno wn) date) unknown) (unknown) (no (unknown) (unknown) Lipase 337 H (units (u nknown) date) unknown) (unknown) (no (unknown) (unknown) Lipase (units (unkno wn) date) unknown) (unknown) (no (unknown) (unknown) Lymph # (Auto) (units (unknown) date) 1000 L unknown) (unknown) (no (unknown) (unknown) Lymph # (Auto) (units (unknown) date) unknown) (unknown) (no (unknown) (unknown) Lymph % (Auto) (units (unknown) date) 29.3 unknown) (unknown) (no (unknown) (unknown) Lymph % (Auto) (units (unknown) date) unknown) (unknown) (no (unknown) (unknown) MCH 26.5 (units (unkno wn) date) unknown) (unknown) (no (unknown) (unknown) MCH (units (unkno wn) date) unknown) (unknown) (no (unknown) (unknown) MCHC 32.9 (units (unkn own) date) unknown) (unknown) (no (unknown) (unknown) MCHC (units (unkno wn) date) unknown) (unknown) (no (unknown) (unknown) MCV 80.6 (units (unkno wn) date) unknown) (unknown) (no (unknown) (unknown) MCV (units (unkno wn) date) unknown) (unknown) (no (unknown) (unknown) Medical History (units (unknown) date) (Reviewed 08/01/22 unknown) @ 06:02 by Reinaldo Arthur DO) (unknown) (no (unknown) (unknown) Medication (units (unk nown) date) Instructions unknown) Recorded Confirmed Type (unknown) (no (unknown) (unknown) Meds (units (unkno wn) date) unknown) (unknown) (no (unknown) (unknown) Menometrorrhagia (units (unknown) date) unknown) (unknown) (no (unknown) (unknown) Yates # (Auto) 300 (units (unknown) date) unknown) (unknown) (no (unknown) (unknown) Yates # (Auto) (units ( unknown) date) unknown) (unknown) (no (unknown) (unknown) Yates % (Auto) 8.0 (units (unknown) date) unknown) (unknown) (no (unknown) (unknown) Yates % (Auto) (units ( unknown) date) unknown) (unknown) (no (unknown) (unknown) Mother Diabetes (units (unknown) date) mellitus unknown) (unknown) (no (unknown) (unknown) NECK: trachea (units ( unknown) date) midline, no JVD unknown) (unknown) (no (unknown) (unknown) NEURO: awake, (units ( unknown) date) alert, oriented, no unknown) focal deficits (unknown) (no (unknown) (unknown) Narrative (units (unkn own) date) unknown) (unknown) (no (unknown) (unknown) Narrative: (units (unk nown) date) unknown) (unknown) (no (unknown) (unknown) Neut # (Auto) 1900 (units (unknown) date) unknown) (unknown) (no (unknown) (unknown) Neut # (Auto) (units ( unknown) date) unknown) (unknown) (no (unknown) (unknown) Neut % (Auto) 57.6 (units (unknown) date) unknown) (unknown) (no (unknown) (unknown) Neut % (Auto) (units ( unknown) date) unknown) (unknown) (no (unknown) (unknown) Obesity (units (unkno wn) date) unknown) (unknown) (no (unknown) (unknown) Objective (units (unkn own) date) unknown) (unknown) (no (unknown) (unknown) Overweight (units (unk nown) date) unknown) (unknown) (no (unknown) (unknown) Oxygen Delivery (units (unknown) date) Method Room Air unknown) Room Air (unknown) (no (unknown) (unknown) Oxygen Delivery (units (unknown) date) Method Room Air unknown) (unknown) (no (unknown) (unknown) PT 12.2 (units (unkno wn) date) unknown) (unknown) (no (unknown) (unknown) PT (units (unkno wn) date) unknown) (unknown) (no (unknown) (unknown) PULM: clear (units (un known) date) bilaterally unknown) (unknown) (no (unknown) (unknown) Patient History (units (unknown) date) unknown) (unknown) (no (unknown) (unknown) Patient is (units (unk nown) date) encephalopathic and unknown) unable to provide history. She was previously (unknown) (no (unknown) (unknown) Patient: (units (unkno wn) date) Sarah Connors R unknown) MR#: M (unknown) (no (unknown) (unknown) Plt Count 178 (units ( unknown) date) unknown) (unknown) (no (unknown) (unknown) Plt Count (units (unkn own) date) unknown) (unknown) (no (unknown) (unknown) Potassium 3.5 (units ( unknown) date) unknown) (unknown) (no (unknown) (unknown) Potassium (units (unkn own) date) unknown) (unknown) (no (unknown) (unknown) Provider: (units (unkn own) date) Jabari Sena unknown) D.O. (unknown) (no (unknown) (unknown) Proxy is spouse (units (unknown) date) Rober. unknown) (unknown) (no (unknown) (unknown) Pulse Oximetry 98 (units (unknown) date) 98 unknown) (unknown) (no (unknown) (unknown) Pulse Rate 76 65 (units (unknown) date) unknown) (unknown) (no (unknown) (unknown) RBC 3.59 L (units (unk nown) date) unknown) (unknown) (no (unknown) (unknown) RBC (units (unkno wn) date) unknown) (unknown) (no (unknown) (unknown) RDW 19.7 H (units (unk nown) date) unknown) (unknown) (no (unknown) (unknown) RDW (units (unkno wn) date) unknown) (unknown) (no (unknown) (unknown) Respiratory Rate (units (unknown) date) 18 20 unknown) (unknown) (no (unknown) (unknown) Review of Systems (units (unknown) date) unknown) (unknown) (no (unknown) (unknown) S/P myringotomy (units (unknown) date) with insertion of unknown) tube (unknown) (no (unknown) (unknown) (spontaneous (units (unknown) date) vaginal delivery) unknown) (-09/05/18) (unknown) (no (unknown) (unknown) Safety + (units (unkno wn) date) Behavioral: unknown) (unknown) (no (unknown) (unknown) Salicylates < 1.0 (units (unknown) date) unknown) (unknown) (no (unknown) (unknown) Salicylates (units (un known) date) unknown) (unknown) (no (unknown) (unknown) Signed (units (unkno wn) date) By:<Electronically unknown) signed by Jabari Sena D.O.> (unknown) (no (unknown) (unknown) Smoker (units (unkno wn) date) unknown) (unknown) (no (unknown) (unknown) Smoking Status (units (unknown) date) Former smoker unknown) (unknown) (no (unknown) (unknown) Social History: (units (unknown) date) unknown) (unknown) (no (unknown) (unknown) Sodium 136 L (units (u nknown) date) unknown) (unknown) (no (unknown) (unknown) Sodium (units (unkno wn) date) unknown) (unknown) (no (unknown) (unknown) Sarah low risk (units (unknown) date) is a 31-year-old unknown) female with past medical history of (unknown) (no (unknown) (unknown) Substance Use Type (units (unknown) date) does not use unknown) (unknown) (no (unknown) (unknown) Suicidal Ideation (units (unknown) date) Description None unknown) (unknown) (no (unknown) (unknown) Suicide Plan (units (u nknown) date) Description No Plan unknown) (unknown) (no (unknown) (unknown) Surgical History (units (unknown) date) (Reviewed 08/01/22 unknown) @ 06:02 by Reinaldo Arthur DO) (unknown) (no (unknown) (unknown) TCA's. EtOH (units (un known) date) negative. unknown) (unknown) (no (unknown) (unknown) Temperature 97.7 F (units (unknown) date) unknown) (unknown) (no (unknown) (unknown) This patient will (units (unknown) date) be admitted as unknown) inpatient and will require greater than 2 (unknown) (no (unknown) (unknown) Tobacco + (units (unkn own) date) Substance use: unknown) (unknown) (no (unknown) (unknown) Tobacco type (units (u nknown) date) cigarettes unknown) (unknown) (no (unknown) (unknown) Total Bilirubin (units (unknown) date) 0.7 unknown) (unknown) (no (unknown) (unknown) Total Bilirubin (units (unknown) date) unknown) (unknown) (no (unknown) (unknown) Total Protein 6.8 (units (unknown) date) unknown) (unknown) (no (unknown) (unknown) Total Protein (units ( unknown) date) unknown) (unknown) (no (unknown) (unknown) U Benzodiazepines (units (unknown) date) Scrn Positive H unknown) (unknown) (no (unknown) (unknown) U Benzodiazepines (units (unknown) date) Scrn unknown) (unknown) (no (unknown) (unknown) U Marijuana (THC) (units (unknown) date) Screen Negative unknown) (unknown) (no (unknown) (unknown) U Marijuana (THC) (units (unknown) date) Screen unknown) (unknown) (no (unknown) (unknown) U Methamphetamines (units (unknown) date) Scrn Negative unknown) (unknown) (no (unknown) (unknown) U Methamphetamines (units (unknown) date) Scrn unknown) (unknown) (no (unknown) (unknown) U Opiates 300ng/mL (units (unknown) date) cut Negative unknown) (unknown) (no (unknown) (unknown) U Opiates 300ng/mL (units (unknown) date) cut unknown) (unknown) (no (unknown) (unknown) U Tricyclic (units (un known) date) Antidepress unknown) Positive H (unknown) (no (unknown) (unknown) U Tricyclic (units (un known) date) Antidepress unknown) (unknown) (no (unknown) (unknown) Ur Amphetamines (units (unknown) date) Screen Negative unknown) (unknown) (no (unknown) (unknown) Ur Amphetamines (units (unknown) date) Screen unknown) (unknown) (no (unknown) (unknown) Ur Barbiturates (units (unknown) date) Screen Positive H unknown) (unknown) (no (unknown) (unknown) Ur Barbiturates (units (unknown) date) Screen unknown) (unknown) (no (unknown) (unknown) Ur Bilirubin (units (u nknown) date) Confirm Negative unknown) (unknown) (no (unknown) (unknown) Ur Bilirubin (units (u nknown) date) Confirm unknown) (unknown) (no (unknown) (unknown) Ur Culture (units (unk nown) date) Indicated? Cult not unknown) indicated (unknown) (no (unknown) (unknown) Ur Culture (units (unk nown) date) Indicated? unknown) (unknown) (no (unknown) (unknown) Ur MDMA Scrn (units (u nknown) date) (Ecstasy) Negative unknown) (unknown) (no (unknown) (unknown) Ur MDMA Scrn (units (u nknown) date) (Ecstasy) unknown) (unknown) (no (unknown) (unknown) Ur Oxycodone (units (u nknown) date) Screen Negative unknown) (unknown) (no (unknown) (unknown) Ur Oxycodone (units (u nknown) date) Screen unknown) (unknown) (no (unknown) (unknown) Ur Phencyclidine (units (unknown) date) Scrn Negative unknown) (unknown) (no (unknown) (unknown) Ur Phencyclidine (units (unknown) date) Scrn unknown) (unknown) (no (unknown) (unknown) Ur Squamous Epith (units (unknown) date) Cells 5-10 /hpf H unknown) (unknown) (no (unknown) (unknown) Ur Squamous Epith (units (unknown) date) Cells unknown) (unknown) (no (unknown) (unknown) Urine Bacteria Few (units (unknown) date) (2-10) H unknown) (unknown) (no (unknown) (unknown) Urine Bacteria (units (unknown) date) unknown) (unknown) (no (unknown) (unknown) Urine Cocaine (units ( unknown) date) Screen Negative unknown) (unknown) (no (unknown) (unknown) Urine Cocaine (units ( unknown) date) Screen unknown) (unknown) (no (unknown) (unknown) Urine Methadone (units (unknown) date) Screen Negative unknown) (unknown) (no (unknown) (unknown) Urine Methadone (units (unknown) date) Screen unknown) (unknown) (no (unknown) (unknown) Urine Mucus 3+ H D (units (unknown) date) unknown) (unknown) (no (unknown) (unknown) Urine Mucus (units (un known) date) unknown) (unknown) (no (unknown) (unknown) Urine RBC None (units (unknown) date) seen unknown) (unknown) (no (unknown) (unknown) Urine RBC (units (unkn own) date) unknown) (unknown) (no (unknown) (unknown) Urine WBC 1-5/hpf (units (unknown) date) unknown) (unknown) (no (unknown) (unknown) Urine WBC (units (unkn own) date) unknown) (unknown) (no (unknown) (unknown) Vital Signs (units (un known) date) unknown) (unknown) (no (unknown) (unknown) WBC 3.3 L (units (unkn own) date) unknown) (unknown) (no (unknown) (unknown) WBC (units (unkno wn) date) unknown) (unknown) (no (unknown) (unknown) [Embedded Image (units (unknown) date) Not Available] unknown) (unknown) (no (unknown) (unknown) [METOCLOPRAMIDE] (units (unknown) date) unknown) (unknown) (no (unknown) (unknown) abuse. She was (units (unknown) date) also seen in our ED unknown) yesterday for withdrawals and sent home, but (unknown) (no (unknown) (unknown) admitted for DT (units (unknown) date) withdrawals for 2 unknown) days earlier this month and was in the ICU on (unknown) (no (unknown) (unknown) alcohol intake (units (unknown) date) former unknown) (unknown) (no (unknown) (unknown) alcohol intake (units (unknown) date) frequency 3 or more unknown) drinks per day (unknown) (no (unknown) (unknown) ativan given in ED (units (unknown) date) without good unknown) effect, so precedex started. Patient's labs and (unknown) (no (unknown) (unknown) depression, (units (un known) date) alcohol abuse and unknown) GERD who presents in acute alcohol withdrawals. (unknown) (no (unknown) (unknown) fluoxetine 10 mg (units (unknown) date) capsule 10 mg PO unknown) DAILY 07/13/22 08/01/22 History (unknown) (no (unknown) (unknown) household members (units (unknown) date) children unknown) (unknown) (no (unknown) (unknown) hydrocodone (units (un known) date) [HYDROCODONE] unknown) AdvReac Unknown VOMITING Verified 07/12/22 16:18 (unknown) (no (unknown) (unknown) hydroxyzine HCl 50 (units (unknown) date) mg tablet 50 mg PO unknown) DAILY 07/13/22 08/01/22 History (unknown) (no (unknown) (unknown) mcg tablet (units (unk nown) date) (Tab-A-Kael) unknown) (unknown) (no (unknown) (unknown) meds. (units (unkno wn) date) unknown) (unknown) (no (unknown) (unknown) metoclopramide (units (unknown) date) Allergy Mild unknown) RASH/HIVES Verified 07/12/22 16:18 (unknown) (no (unknown) (unknown) mg tablet (units (unkn own) date) unknown) (unknown) (no (unknown) (unknown) midnights of (units (u nknown) date) hospital time to unknown) treat acute alcohol withdrawals with DTs. (unknown) (no (unknown) (unknown) multivitamin with (units (unknown) date) folic acid 400 1 unknown) tab PO DAILY #30 tabs 23 08/01/22 Rx (unknown) (no (unknown) (unknown) pantoprazole 40 mg (units (unknown) date) tablet,delayed 40 unknown) mg PO 0700 #30 tabs 07/14/22 08/01/22 Rx (unknown) (no (unknown) (unknown) precedex drip. (units ( unknown) date) Discharged home unknown) after she refused inpatient rehab for her alcohol (unknown) (no (unknown) (unknown) precedex drip. (units (unknown) date) unknown) (unknown) (no (unknown) (unknown) quetiapine 300 mg (units (unknown) date) tablet 300 mg PO unknown) DAILY 07/13/22 08/01/22 History (unknown) (no (unknown) (unknown) release (units (unkno wn) date) unknown) (unknown) (no (unknown) (unknown) stated. (units (unkno wn) date) unknown) (unknown) (no (unknown) (unknown) then returned (units ( unknown) date) today with unknown) hallucinations and severe withdrawals. Phenobarb and (unknown) (no (unknown) (unknown) thiamine (units (unkno wn) date) mononitrate (vit unknown) B1) 100 100 mg PO DAILY #30 tabs 23 08/01/22 Rx (unknown) (no (unknown) (unknown) today; this time (units (unknown) date) is exclusive of unknown) procedural time. (unknown) (no (unknown) (unknown) vitals are stable. (units (unknown) date) On my exam in CCU unknown) patient is sleeping and calm on max (unknown) (no (unknown) (unknown) when able to take (units (unknown) date) oral meds unknown) (unknown) (no (unknown) (unknown) withdrawals (units (unk nown) date) symptoms would like unknown) be out of window. UDS positive benzos, barbs and Result panel [id number] (unknown) (no (unknown) (unknown) (no value) (units (unk nown) date) unknown) (unknown) (no (unknown) (unknown) [id number] (units (unkn own) date) unknown) (unknown) (no (unknown) (unknown) :: (units (unkno wn) date) unknown) (unknown) (no (unknown) (unknown) Age/Sex: 31 / F (units (unknown) date) unknown) (unknown) (no (unknown) (unknown) : 1990 (units (unknown) date) Acct:[id number] unknown) (unknown) (no (unknown) (unknown) Date Patient Seen: (units (unknown) date) 08/01/22 unknown) (unknown) (no (unknown) (unknown) Date of Service: (units (unknown) date) 08/01/22 unknown) (unknown) (no (unknown) (unknown) ICU (units (unkno wn) date) Multidisciplinary unknown) Rounds (unknown) (no (unknown) (unknown) [facility] (units (unknown) date) [address] unknown) [place] [address] (unknown) (no (unknown) (unknown) Note: (units (unkno wn) date) unknown) (unknown) (no (unknown) (unknown) Patient is (units (unk nown) date) currently is unknown) precedex (unknown) (no (unknown) (unknown) Patient: (units (unkno wn) date) Sarah Connors unknown) MR#: M (unknown) (no (unknown) (unknown) Provider: (units (unkn own) date) Pauol Dixon MD unknown) (unknown) (no (unknown) (unknown) Signed By: (units (unk nown) date) unknown) (unknown) (no (unknown) (unknown) This patient was (units (unknown) date) seen via real time unknown) interactive two-way audiovisual (unknown) (no (unknown) (unknown) Time Patient Seen: (units (unknown) date) 20:12 unknown) (unknown) (no (unknown) (unknown) telecommunication. (units (unknown) date) unknown) Result panel [id number] (unknown) (no (unknown) (unknown) (no value) (units (unk nown) date) unknown) (unknown) (no (unknown) (unknown) [phone] (units (unkn own) date) unknown) (unknown) (no (unknown) (unknown) 08/01/22 2017 (units ( unknown) date) unknown) (unknown) (no (unknown) (unknown) :: (units (unkno wn) date) unknown) (unknown) (no (unknown) (unknown) Age/Sex: 31 / F (units (unknown) date) unknown) (unknown) (no (unknown) (unknown) CIWA is 4. Added (units (unknown) date) D5LR at 84cc/hr and unknown) check accucheck q6hr. D/w bedside RN. (unknown) (no (unknown) (unknown) : 1990 (units (unknown) date) Acct:[id number] unknown) (unknown) (no (unknown) (unknown) Date Patient Seen: (units (unknown) date) 08/01/22 unknown) (unknown) (no (unknown) (unknown) Date of Service: (units (unknown) date) 08/01/22 unknown) (unknown) (no (unknown) (unknown) ICU (units (unkno wn) date) Multidisciplinary unknown) Rounds (unknown) (no (unknown) (unknown) [facility] (units (unknown) date) [address]) [place] [address] (unknown) (no (unknown) (unknown) Note: (units (unkno wn) date) unknown) (unknown) (no (unknown) (unknown) Patient is (units (unk nown) date) currently on unknown) precedex 1 mcg. No ativan given since 10 am. Current (unknown) (no (unknown) (unknown) Patient: (units (unkno wn) date) Sarah Connors R unknown) MR#: M (unknown) (no (unknown) (unknown) Provider: (units (unkn own) date) Paulo Dixon MD unknown) (unknown) (no (unknown) (unknown) Signed (units (unkno wn) date) By:<Electronically unknown) signed by Paulo Dixon MD> (unknown) (no (unknown) (unknown) This patient was (units (unknown) date) seen via real time unknown) interactive two-way audiovisual (unknown) (no (unknown) (unknown) Time Patient Seen: (units (unknown) date) 20:12 unknown) (unknown) (no (unknown) (unknown) telecommunication. (units (unknown) date) unknown) Result panel [id number] (unknown) (no date) (unknown) (unknown) > 60 ml/min (unkn own) (unknown) (no date) (unknown) (unknown) > 60 ml/min (unkn own) (unknown) (no date) (unknown) (unknown) 0.54 mg/dl (unkn own) (unknown) (no date) (unknown) (unknown) 105 mmol/l (unkn own) (unknown) (no date) (unknown) (unknown) 122 mg/dl (unkn own) (unknown) (no date) (unknown) (unknown) 122 mg/dl (unkn own) (unknown) (no date) (unknown) (unknown) 135 mmol/l (unkn own) (unknown) (no date) (unknown) (unknown) 24 mmol/l (unkn own) (unknown) (no date) (unknown) (unknown) 3.3 mmol/l (unkn own) (unknown) (no date) (unknown) (unknown) 5 mg/dl (unkn own) (unknown) (no date) (unknown) (unknown) 7.9 mg/dl (unkn own) (unknown) (no date) (unknown) (unknown) 9.3 (units unknown) (unknown) Result panel 2424 (unknown) (no date) (unknown) (unknown) 0 /ul (unkn own) (unknown) (no date) (unknown) (unknown) 0.8 % (unkn own) (unknown) (no date) (unknown) (unknown) 100 /ul (unkn own) (unknown) (no date) (unknown) (unknown) 1200 /ul (unkn own) (unknown) (no date) (unknown) (unknown) 157 x10 3/ul (unkn own) (unknown) (no date) (unknown) (unknown) 2.9 % (unkn own) (unknown) (no date) (unknown) (unknown) 20.1 % (unkn own) (unknown) (no date) (unknown) (unknown) 200 /ul (unkn own) (unknown) (no date) (unknown) (unknown) 24.0 % (unkn own) (unknown) (no date) (unknown) (unknown) 26.6 pg (unkn own) (unknown) (no date) (unknown) (unknown) 28.6 % (unkn own) (unknown) (no date) (unknown) (unknown) 3.53 x10 6/ul (unkn own) (unknown) (no date) (unknown) (unknown) 32.8 % (unkn own) (unknown) (no date) (unknown) (unknown) 3400 /ul (unkn own) (unknown) (no date) (unknown) (unknown) 5.0 % (unkn own) (unknown) (no date) (unknown) (unknown) 5.0 x10 3/ul (unkn own) (unknown) (no date) (unknown) (unknown) 5.0 x10 3/ul (unkn own) (unknown) (no date) (unknown) (unknown) 67.3 % (unkn own) (unknown) (no date) (unknown) (unknown) 81.1 fl (unkn own) (unknown) (no date) (unknown) (unknown) 9.4 g/dl (unkn own) Result panel 2425 (unknown) (no date) (unknown) (unknown) 0 /ul (unkn own) (unknown) (no date) (unknown) (unknown) 0.8 % (unkn own) (unknown) (no date) (unknown) (unknown) 1 (units (unkn own) unknown) (unknown) (no date) (unknown) (unknown) 100 /ul (unkn own) (unknown) (no date) (unknown) (unknown) 1200 /ul (unkn own) (unknown) (no date) (unknown) (unknown) 157 x10 3/ul (unkn own) (unknown) (no date) (unknown) (unknown) 2.9 % (unkn own) (unknown) (no date) (unknown) (unknown) 20.1 % (unkn own) (unknown) (no date) (unknown) (unknown) 200 /ul (unkn own) (unknown) (no date) (unknown) (unknown) 24.0 % (unkn own) (unknown) (no date) (unknown) (unknown) 26.6 pg (unkn own) (unknown) (no date) (unknown) (unknown) 28.6 % (unkn own) (unknown) (no date) (unknown) (unknown) 3.53 x10 6/ul (unkn own) (unknown) (no date) (unknown) (unknown) 32.8 % (unkn own) (unknown) (no date) (unknown) (unknown) 3400 /ul (unkn own) (unknown) (no date) (unknown) (unknown) 5.0 % (unkn own) (unknown) (no date) (unknown) (unknown) 5.0 x10 3/ul (unkn own) (unknown) (no date) (unknown) (unknown) 5.0 x10 3/ul (unkn own) (unknown) (no date) (unknown) (unknown) 67.3 % (unkn own) (unknown) (no date) (unknown) (unknown) 81.1 fl (unkn own) (unknown) (no date) (unknown) (unknown) 9.4 g/dl (unkn own) (unknown) (no date) (unknown) (unknown) See Below (units (unk nown) unknown) Result panel 2426 (unknown) (no (unknown) (unknown) (no value) (units (unk nown) date) unknown) (unknown) (no (unknown) (unknown) # GERD (units (unkno wn) date) unknown) (unknown) (no (unknown) (unknown) # acute alcohol (units (unknown) date) withdrawal with unknown) delirium tremens (unknown) (no (unknown) (unknown) # depression and (units (unknown) date) anxiety unknown) (unknown) (no (unknown) (unknown) # normocytic (units (u nknown) date) anemia unknown) (unknown) (no (unknown) (unknown) # 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, barbiturates, and alcohol (unknown) (no (unknown) (unknown) (past 8 hours): (units (unknown) date) unknown) (unknown) (no (unknown) (unknown) -CIWA protocol (units (unknown) date) with Ativan, unknown) phenobarbital 60 mg IV b.i.d., Librium 50 q.6 hours (unknown) (no (unknown) (unknown) -MV, thiamine and (units (unknown) date) B6 daily unknown) (unknown) (no (unknown) (unknown) -appears to be (units (unknown) date) chronic unknown) (unknown) (no (unknown) (unknown) -appreciate (units (un known) date) tele-ICU unknown) consultation (unknown) (no (unknown) (unknown) -check B12/folate (units (unknown) date) unknown) (unknown) (no (unknown) (unknown) -continue PPI (units ( unknown) date) unknown) (unknown) (no (unknown) (unknown) -continue Precedex (units (unknown) date) drip until and unknown) benzos and barbiturates can take effect (unknown) (no (unknown) (unknown) -continue home (units (unknown) date) Prozac when able to unknown) take po (unknown) (no (unknown) (unknown) -no evidence of (units (unknown) date) bleeding unknown) (unknown) (no (unknown) (unknown) -patient states (units (unknown) date) last drink 5 days unknown) ago, but unclear if true given current (unknown) (no (unknown) (unknown) -patient very (units ( unknown) date) agitated in ED and unknown) required precedex drip (unknown) (no (unknown) (unknown) -should improve as (units (unknown) date) withdrawals improve unknown) (unknown) (no (unknown) (unknown) [id number] (units (unkn own) date) unknown) (unknown) (no (unknown) (unknown) 00:00 08/02/22 (units (unknown) date) unknown) (unknown) (no (unknown) (unknown) 01:00 08/02/22 (units (unknown) date) unknown) (unknown) (no (unknown) (unknown) 01:00 (units (unkno wn) date) unknown) (unknown) (no (unknown) (unknown) 02:00 08/02/22 (units (unknown) date) unknown) (unknown) (no (unknown) (unknown) 08/01/22 08/01/22 (units (unknown) date) 08/01/22 unknown) (unknown) (no (unknown) (unknown) 08/01/22 08/01/22 (units (unknown) date) 08/02/22 unknown) (unknown) (no (unknown) (unknown) 08/02/22 03:48 (units (unknown) date) unknown) (unknown) (no (unknown) (unknown) 08/02/22 (units (unkno wn) date) unknown) (unknown) (no (unknown) (unknown) 03:00 08/02/22 (units (unknown) date) unknown) (unknown) (no (unknown) (unknown) 03:48 (units (unkno wn) date) unknown) (unknown) (no (unknown) (unknown) 04:00 (units (unkno wn) date) unknown) (unknown) (no (unknown) (unknown) 05:00 08/02/22 (units (unknown) date) unknown) (unknown) (no (unknown) (unknown) 05:10 05:10 05:10 (units (unknown) date) unknown) (unknown) (no (unknown) (unknown) 06:00 (units (unkno wn) date) unknown) (unknown) (no (unknown) (unknown) 06:35 08/02/22 (units (unknown) date) unknown) (unknown) (no (unknown) (unknown) 08:05 09:25 03:48 (units (unknown) date) unknown) (unknown) (no (unknown) (unknown) ABD: soft, (units (unk nown) date) nontender, unknown) nondistended, no organomegaly (unknown) (no (unknown) (unknown) Age/Sex: 31 / F (units (unknown) date) unknown) (unknown) (no (unknown) (unknown) Alcohol withdrawal (units (unknown) date) delirium, acute, unknown) hyperactive (unknown) (no (unknown) (unknown) Alcoholism (units (unk nown) date) unknown) (unknown) (no (unknown) (unknown) Anemia (-2018) (units (unknown) date) unknown) (unknown) (no (unknown) (unknown) Anisocytosis 1+ H (units (unknown) date) unknown) (unknown) (no (unknown) (unknown) Anisocytosis (units (u nknown) date) unknown) (unknown) (no (unknown) (unknown) Assessment + Plan (units (unknown) date) narrative: unknown) (unknown) (no (unknown) (unknown) Assessment + Plan (units (unknown) date) unknown) (unknown) (no (unknown) (unknown) BUN 5 L (units (unkno wn) date) unknown) (unknown) (no (unknown) (unknown) BUN (units (unkno wn) date) unknown) (unknown) (no (unknown) (unknown) BUN/Creatinine (units (unknown) date) Ratio 9.3 unknown) (unknown) (no (unknown) (unknown) BUN/Creatinine (units (unknown) date) Ratio unknown) (unknown) (no (unknown) (unknown) Baso # (Auto) 0 (units (unknown) date) unknown) (unknown) (no (unknown) (unknown) Baso # (Auto) (units ( unknown) date) unknown) (unknown) (no (unknown) (unknown) Baso % (Auto) 0.8 (units (unknown) date) unknown) (unknown) (no (unknown) (unknown) Baso % (Auto) (units ( unknown) date) unknown) (unknown) (no (unknown) (unknown) Blood Pressure (units (unknown) date) 115/77 123/76 unknown) 119/77 (unknown) (no (unknown) (unknown) Blood Pressure (units (unknown) date) 118/74 112/81 unknown) (unknown) (no (unknown) (unknown) Blood Pressure (units (unknown) date) 124/75 unknown) (unknown) (no (unknown) (unknown) COVID negative. (units (unknown) date) unknown) (unknown) (no (unknown) (unknown) CV: regular rate (units (unknown) date) and rhythm, no unknown) murmurs (unknown) (no (unknown) (unknown) Calcium 7.9 L (units ( unknown) date) unknown) (unknown) (no (unknown) (unknown) Calcium (units (unkno wn) date) unknown) (unknown) (no (unknown) (unknown) Carbon Dioxide 24 (units (unknown) date) unknown) (unknown) (no (unknown) (unknown) Carbon Dioxide (units (unknown) date) unknown) (unknown) (no (unknown) (unknown) Chloride 105 (units (u nknown) date) unknown) (unknown) (no (unknown) (unknown) Chloride (units (unkno wn) date) unknown) (unknown) (no (unknown) (unknown) Code status is (units (unknown) date) full code. unknown) (unknown) (no (unknown) (unknown) Creatinine 0.54 (units (unknown) date) unknown) (unknown) (no (unknown) (unknown) Creatinine (units (unk nown) date) unknown) (unknown) (no (unknown) (unknown) : 1990 (units (unknown) date) Acct:[id number] unknown) (unknown) (no (unknown) (unknown) DVT prophylaxis (units (unknown) date) with SCDs. unknown) (unknown) (no (unknown) (unknown) Date of Service: (units (unknown) date) 08/01/22 unknown) (unknown) (no (unknown) (unknown) EXT: warm and well (units (unknown) date) perfused with no unknown) edema (unknown) (no (unknown) (unknown) Eos # (Auto) 100 (units (unknown) date) unknown) (unknown) (no (unknown) (unknown) Eos # (Auto) (units (u nknown) date) unknown) (unknown) (no (unknown) (unknown) Eos % (Auto) 2.9 (units (unknown) date) unknown) (unknown) (no (unknown) (unknown) Eos % (Auto) (units (u nknown) date) unknown) (unknown) (no (unknown) (unknown) Estimated GFR > 60 (units (unknown) date) unknown) (unknown) (no (unknown) (unknown) Estimated GFR (units ( unknown) date) unknown) (unknown) (no (unknown) (unknown) Exam Narrative: (units (unknown) date) unknown) (unknown) (no (unknown) (unknown) Exam (units (unkno wn) date) unknown) (unknown) (no (unknown) (unknown) Family History (units (unknown) date) (Reviewed 08/01/22 unknown) @ 06:02 by Reinaldo Arthur DO) (unknown) (no (unknown) (unknown) Family/Other (units (u nknown) date) Alcoholism unknown) (unknown) (no (unknown) (unknown) Family/Other (units (u nknown) date) Diabetes mellitus unknown) (unknown) (no (unknown) (unknown) Father Alcoholism (units (unknown) date) unknown) (unknown) (no (unknown) (unknown) Folate 11.9 (units (un known) date) unknown) (unknown) (no (unknown) (unknown) Folate (units (unkno wn) date) unknown) (unknown) (no (unknown) (unknown) Free T4 1.13 (units (u nknown) date) unknown) (unknown) (no (unknown) (unknown) Free T4 (units (unkno wn) date) unknown) (unknown) (no (unknown) (unknown) GEN: no acute (units ( unknown) date) distress, sleeping unknown) (unknown) (no (unknown) (unknown) Glucose 122 H (units ( unknown) date) unknown) (unknown) (no (unknown) (unknown) Glucose (units (unkno wn) date) unknown) (unknown) (no [...] extraction () unknown) (unknown) (no (unknown) (unknown) HEENT: moist (units (u nknown) date) mucous membranes, unknown) PERRL (unknown) (no (unknown) (unknown) Hct 28.6 L (units (unk nown) date) unknown) (unknown) (no (unknown) (unknown) Hct (units (unkno wn) date) unknown) (unknown) (no (unknown) (unknown) Hgb 9.4 L (units (unkn own) date) unknown) (unknown) (no (unknown) (unknown) Hgb (units (unkno wn) date) unknown) (unknown) (no (unknown) (unknown) I have reviewed (units (unknown) date) home meds and used unknown) all available resources to reconcile the home (unknown) (no (unknown) (unknown) I spent a total of (units (unknown) date) 35 minutes of unknown) critical care time on this patient's care (unknown) (no (unknown) (unknown) Insomnia (units (unkno wn) date) unknown) (unknown) (no (unknown) (unknown) [facility] (units (unknown) date) [address] unknown) [place] [address] (unknown) (no (unknown) (unknown) Laboratory Results (units (unknown) date) - last 24 hr unknown) (unknown) (no (unknown) (unknown) Labs (units (unkno wn) date) unknown) (unknown) (no (unknown) (unknown) Labs: (units (unkno wn) date) unknown) (unknown) (no (unknown) (unknown) Lymph # (Auto) (units (unknown) date) 1200 unknown) (unknown) (no (unknown) (unknown) Lymph # (Auto) (units (unknown) date) unknown) (unknown) (no (unknown) (unknown) Lymph % (Auto) (units (unknown) date) 24.0 L unknown) (unknown) (no (unknown) (unknown) Lymph % (Auto) (units (unknown) date) unknown) (unknown) (no (unknown) (unknown) MCH 26.6 (units (unkno wn) date) unknown) (unknown) (no (unknown) (unknown) MCH (units (unkno wn) date) unknown) (unknown) (no (unknown) (unknown) MCHC 32.8 (units (unkn own) date) unknown) (unknown) (no (unknown) (unknown) MCHC (units (unkno wn) date) unknown) (unknown) (no (unknown) (unknown) MCV 81.1 (units (unkno wn) date) unknown) (unknown) (no (unknown) (unknown) MCV (units (unkno wn) date) unknown) (unknown) (no (unknown) (unknown) Magnesium 2.0 (units ( unknown) date) unknown) (unknown) (no (unknown) (unknown) Magnesium (units (unkn own) date) unknown) (unknown) (no (unknown) (unknown) Medical History (units (unknown) date) (Reviewed 08/01/22 unknown) @ 06:02 by Reinaldo Arthur DO) (unknown) (no (unknown) (unknown) Menometrorrhagia (units (unknown) date) unknown) (unknown) (no (unknown) (unknown) Yates # (Auto) 200 (units (unknown) date) unknown) (unknown) (no (unknown) (unknown) Yates # (Auto) (units ( unknown) date) unknown) (unknown) (no (unknown) (unknown) Yates % (Auto) 5.0 (units (unknown) date) unknown) (unknown) (no (unknown) (unknown) Yates % (Auto) (units ( unknown) date) unknown) (unknown) (no (unknown) (unknown) Mother Diabetes (units (unknown) date) mellitus unknown) (unknown) (no (unknown) (unknown) NECK: trachea (units ( unknown) date) midline, no JVD unknown) (unknown) (no (unknown) (unknown) NEURO: awake, (units ( unknown) date) alert, oriented, no unknown) focal deficits (unknown) (no (unknown) (unknown) Narrative (units (unkn own) date) unknown) (unknown) (no (unknown) (unknown) Nasal Screen MRSA (units (unknown) date) (PCR) Not detected unknown) (unknown) (no (unknown) (unknown) Nasal Screen MRSA (units (unknown) date) (PCR) unknown) (unknown) (no (unknown) (unknown) Neut # (Auto) 3400 (units (unknown) date) unknown) (unknown) (no (unknown) (unknown) Neut # (Auto) (units ( unknown) date) unknown) (unknown) (no (unknown) (unknown) Neut % (Auto) 67.3 (units (unknown) date) unknown) (unknown) (no (unknown) (unknown) Neut % (Auto) (units ( unknown) date) unknown) (unknown) (no (unknown) (unknown) Obesity (units (unkno wn) date) unknown) (unknown) (no (unknown) (unknown) Objective (units (unkn own) date) unknown) (unknown) (no (unknown) (unknown) Overweight (units (unk nown) date) unknown) (unknown) (no (unknown) (unknown) Oxygen Delivery (units (unknown) date) Method Room Air unknown) (unknown) (no (unknown) (unknown) Oxygen Delivery (units (unknown) date) Method unknown) (unknown) (no (unknown) (unknown) Oxygen Flow Rate 0 (units (unknown) date) unknown) (unknown) (no (unknown) (unknown) PFSH (units (unkno wn) date) unknown) (unknown) (no (unknown) (unknown) PULM: clear (units (un known) date) bilaterally unknown) (unknown) (no (unknown) (unknown) Patient: (units (unkno wn) date) Sarah Connors R unknown) MR#: M (unknown) (no (unknown) (unknown) Plt Count 157 (units ( unknown) date) unknown) (unknown) (no (unknown) (unknown) Plt Count (units (unkn own) date) unknown) (unknown) (no (unknown) (unknown) Potassium 3.3 L (units (unknown) date) unknown) (unknown) (no (unknown) (unknown) Potassium (units (unkn own) date) unknown) (unknown) (no (unknown) (unknown) Progress Note (units ( unknown) date) unknown) (unknown) (no (unknown) (unknown) Provider: (units (unkn own) date) Jabari Sena unknown) D.O. (unknown) (no (unknown) (unknown) Proxy is spouse (units (unknown) date) Rober. unknown) (unknown) (no (unknown) (unknown) Pulse Oximetry 97 (units (unknown) date) 100 unknown) (unknown) (no (unknown) (unknown) Pulse Oximetry 97 (units (unknown) date) 98 98 unknown) (unknown) (no (unknown) (unknown) Pulse Oximetry 98 (units (unknown) date) 98 unknown) (unknown) (no (unknown) (unknown) Pulse Rate 49 L 52 (units (unknown) date) L unknown) (unknown) (no (unknown) (unknown) Pulse Rate 55 L 57 (units (unknown) date) L 57 L unknown) (unknown) (no (unknown) (unknown) Pulse Rate 58 L 59 (units (unknown) date) L unknown) (unknown) (no (unknown) (unknown) RBC 3.53 L (units (unk nown) date) unknown) (unknown) (no (unknown) (unknown) RBC Morphology See (units (unknown) date) below unknown) (unknown) (no (unknown) (unknown) RBC Morphology (units (unknown) date) unknown) (unknown) (no (unknown) (unknown) RBC (units (unkno wn) date) unknown) (unknown) (no (unknown) (unknown) RDW 20.1 H (units (unk nown) date) unknown) (unknown) (no (unknown) (unknown) RDW (units (unkno wn) date) unknown) (unknown) (no (unknown) (unknown) Respiratory Rate (units (unknown) date) 17 17 18 unknown) (unknown) (no (unknown) (unknown) Respiratory Rate (units (unknown) date) 18 13 unknown) (unknown) (no (unknown) (unknown) Respiratory Rate (units (unknown) date) 18 17 unknown) (unknown) (no (unknown) (unknown) S/P myringotomy (units (unknown) date) with insertion of unknown) tube (unknown) (no (unknown) (unknown) SARS-CoV-2 (PCR) (units (unknown) date) Negative unknown) (unknown) (no (unknown) (unknown) SARS-CoV-2 (PCR) (units (unknown) date) unknown) (unknown) (no (unknown) (unknown) (spontaneous (units (unknown) date) vaginal delivery) unknown) (-09/05/18) (unknown) (no (unknown) (unknown) Signed By: (units (unk nown) date) unknown) (unknown) (no (unknown) (unknown) Smoker (units (unkno wn) date) unknown) (unknown) (no (unknown) (unknown) Smoking Status: (units (unknown) date) Former smoker unknown) (unknown) (no (unknown) (unknown) Social History (units (unknown) date) (Reviewed 08/01/22 unknown) @ 06:02 by Reinaldo Arthur DO) (unknown) (no (unknown) (unknown) Sodium 135 L (units (u nknown) date) unknown) (unknown) (no (unknown) (unknown) Sodium (units (unkno wn) date) unknown) (unknown) (no (unknown) (unknown) Surgical History (units (unknown) date) (Reviewed 08/01/22 unknown) @ 06:02 by Reinaldo Arthur DO) (unknown) (no (unknown) (unknown) TCA's. EtOH (units (un known) date) negative. unknown) (unknown) (no (unknown) (unknown) TSH 4.71 H (units (unk nown) date) unknown) (unknown) (no (unknown) (unknown) TSH (units (unkno wn) date) unknown) (unknown) (no (unknown) (unknown) Temperature 98.5 F (units (unknown) date) unknown) (unknown) (no (unknown) (unknown) Temperature 98.7 F (units (unknown) date) unknown) (unknown) (no (unknown) (unknown) Temperature (units (un known) date) unknown) (unknown) (no (unknown) (unknown) This patient will (units (unknown) date) be admitted as unknown) inpatient and will require greater than 2 (unknown) (no (unknown) (unknown) Vital Signs (units (un known) date) unknown) (unknown) (no (unknown) (unknown) Vitamin B12 401 (units (unknown) date) unknown) (unknown) (no (unknown) (unknown) Vitamin B12 (units (un known) date) unknown) (unknown) (no (unknown) (unknown) WBC 5.0 D (units (unkn own) date) unknown) (unknown) (no (unknown) (unknown) WBC (units (unkno wn) date) unknown) (unknown) (no (unknown) (unknown) [Embedded Image (units (unknown) date) Not Available] unknown) (unknown) (no (unknown) (unknown) alcohol intake: (units (unknown) date) current unknown) (unknown) (no (unknown) (unknown) current (units (unkno wn) date) occupational unknown) exposures/hazards: Yes (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 with Pandemic ) (unknown) (no (unknown) (unknown) education level: (units (unknown) date) college unknown) (unknown) (no (unknown) (unknown) renee/zoroastrianism: (units (unknown) date) Buddhist unknown) (unknown) (no (unknown) (unknown) household members: (units (unknown) date) significant other unknown) (unknown) (no (unknown) (unknown) marital status: (units (unknown) date) unknown) (unknown) (no (unknown) (unknown) meds. (units (unkno wn) date) unknown) (unknown) (no (unknown) (unknown) midnights of (units (u nknown) date) hospital time to unknown) treat acute alcohol withdrawals with DTs. (unknown) (no (unknown) (unknown) number of (units (unkn own) date) children: 1 unknown) (unknown) (no (unknown) (unknown) occupational (units (u nknown) date) status: employed unknown) (unknown) (no (unknown) (unknown) second hand (units (un known) date) exposure: No unknown) (growing up as a child - not currently) (unknown) (no (unknown) (unknown) special renee (units ( unknown) date) needs: No unknown) (unknown) (no (unknown) (unknown) substance use (units ( unknown) date) type: does not use unknown) (unknown) (no (unknown) (unknown) today; this time (units (unknown) date) is exclusive of unknown) procedural time. (unknown) (no (unknown) (unknown) when able to take (units (unknown) date) oral meds unknown) (unknown) (no (unknown) (unknown) withdrawal (units (unk nown) date) unknown) (unknown) (no (unknown) (unknown) withdrawals (units (unk nown) date) symptoms would like unknown) be out of window. UDS positive benzos, barbs and Result panel 2427 (unknown) (no (unknown) (unknown) (no value) (units (unk nown) date) unknown) (unknown) (no (unknown) (unknown) (1) Alcohol (units (un known) date) withdrawal unknown) delirium, acute, hyperactive: (unknown) (no (unknown) (unknown) (2) Alcohol (units (un known) date) withdrawal: unknown) (unknown) (no (unknown) (unknown) (Critical care (units (unknown) date) time 35 minutes.) unknown) (unknown) (no (unknown) (unknown) (past 8 hours): (units (unknown) date) unknown) (unknown) (no (unknown) (unknown) [id number] (units (unkn own) date) unknown) (unknown) (no (unknown) (unknown) 02:00 08/02/22 (units (unknown) date) unknown) (unknown) (no (unknown) (unknown) 07/14/22 [Rx (units (u nknown) date) Confirmed 08/01/22] unknown) (unknown) (no (unknown) (unknown) 08/01/22 08/01/22 (units (unknown) date) 08/01/22 unknown) (unknown) (no (unknown) (unknown) 08/01/22] (units (unkn own) date) unknown) (unknown) (no (unknown) (unknown) 08/02/22 08/02/22 (units (unknown) date) unknown) (unknown) (no (unknown) (unknown) 08/02/22 03:48 (units (unknown) date) unknown) (unknown) (no (unknown) (unknown) 08/02/22 (units (unkno wn) date) unknown) (unknown) (no (unknown) (unknown) 03:00 08/02/22 (units (unknown) date) unknown) (unknown) (no (unknown) (unknown) 03:48 03:48 (units (un known) date) unknown) (unknown) (no (unknown) (unknown) 04:00 (units (unkno wn) date) unknown) (unknown) (no (unknown) (unknown) 05:00 08/02/22 (units (unknown) date) unknown) (unknown) (no (unknown) (unknown) 05:10 05:10 09:25 (units (unknown) date) unknown) (unknown) (no (unknown) (unknown) 06:00 (units (unkno wn) date) unknown) (unknown) (no (unknown) (unknown) 06:35 08/02/22 (units (unknown) date) unknown) (unknown) (no (unknown) (unknown) 08:10 (units (unkno wn) date) unknown) (unknown) (no (unknown) (unknown) 08:15 08/02/22 (units (unknown) date) 06:01 unknown) (unknown) (no (unknown) (unknown) 2 MCG/KG/HR (units (un known) date) unknown) (unknown) (no (unknown) (unknown) 21:09 (units (unkno wn) date) unknown) (unknown) (no (unknown) (unknown) Administration (units (unknown) date) unknown) (unknown) (no (unknown) (unknown) Age/Sex: 31 / F (units (unknown) date) unknown) (unknown) (no (unknown) (unknown) Alcohol Withdrawal (units (unknown) date) unknown) (unknown) (no (unknown) (unknown) Anisocytosis 1+ H (units (unknown) date) unknown) (unknown) (no (unknown) (unknown) Anisocytosis (units (u nknown) date) unknown) (unknown) (no (unknown) (unknown) Assessment + Plan (units (unknown) date) narrative: unknown) (unknown) (no (unknown) (unknown) Assessment + Plan (units (unknown) date) unknown) (unknown) (no (unknown) (unknown) Assessment and (units (unknown) date) plan unknown) (unknown) (no (unknown) (unknown) Ativan per CIWA (units (unknown) date) protocol unknown) (unknown) (no (unknown) (unknown) Awake, alert (units (u nknown) date) unknown) (unknown) (no (unknown) (unknown) BID SANDY (units (unkno wn) date) Administration unknown) (unknown) (no (unknown) (unknown) BUN 5 L (units (unkno wn) date) unknown) (unknown) (no (unknown) (unknown) BUN (units (unkno wn) date) unknown) (unknown) (no (unknown) (unknown) BUN/Creatinine (units (unknown) date) Ratio 9.3 unknown) (unknown) (no (unknown) (unknown) BUN/Creatinine (units (unknown) date) Ratio unknown) (unknown) (no (unknown) (unknown) Baso # (Auto) 0 (units (unknown) date) unknown) (unknown) (no (unknown) (unknown) Baso # (Auto) (units ( unknown) date) unknown) (unknown) (no (unknown) (unknown) Baso % (Auto) 0.8 (units (unknown) date) unknown) (unknown) (no (unknown) (unknown) Baso % (Auto) (units ( unknown) date) unknown) (unknown) (no (unknown) (unknown) Blood Pressure (units (unknown) date) 115/77 123/76 unknown) 119/77 (unknown) (no (unknown) (unknown) Blood Pressure (units (unknown) date) 124/75 unknown) (unknown) (no (unknown) (unknown) CIWAPRN PRN (units (un known) date) Administration unknown) (unknown) (no (unknown) (unknown) CONT SANDY (units (unkno wn) date) Administration unknown) (unknown) (no (unknown) (unknown) Calcium 7.9 L (units ( unknown) date) unknown) (unknown) (no (unknown) (unknown) Calcium (units (unkno wn) date) unknown) (unknown) (no (unknown) (unknown) Carbon Dioxide 24 (units (unknown) date) unknown) (unknown) (no (unknown) (unknown) Carbon Dioxide (units (unknown) date) unknown) (unknown) (no (unknown) (unknown) Chlordiazepoxide (units (unknown) date) 25 Mg Capsule PO unknown) Not Given (unknown) (no (unknown) (unknown) Chlordiazepoxide (units (unknown) date) HCl 50 mg 08/01/22 unknown) 12:00 08/02/22 06:01 (unknown) (no (unknown) (unknown) Chloride 105 (units (u nknown) date) unknown) (unknown) (no (unknown) (unknown) Chloride IV Not (units (unknown) date) Given unknown) (unknown) (no (unknown) (unknown) Chloride (units (unkno wn) date) unknown) (unknown) (no (unknown) (unknown) Confirmed (units (unkn own) date) 08/01/22] unknown) (unknown) (no (unknown) (unknown) Consent obtained (units (unknown) date) for unknown) 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 unknown) Requires ICU for acute alcohol withdrawal (unknown) (no (unknown) (unknown) Creatinine 0.54 (units (unknown) date) unknown) (unknown) (no (unknown) (unknown) Creatinine (units (unk nown) date) unknown) (unknown) (no (unknown) (unknown) Current (units (unkno wn) date) Medications unknown) (unknown) (no (unknown) (unknown) DAILY SANDY (units (unkn own) date) Administration unknown) (unknown) (no (unknown) (unknown) DAILY SANDY (units (unkn own) date) unknown) (unknown) (no (unknown) (unknown) : 1990 (units (unknown) date) Acct:[id number] unknown) (unknown) (no (unknown) (unknown) Date Patient Seen: (units (unknown) date) 08/02/22 unknown) (unknown) (no (unknown) (unknown) Date of Service: (units (unknown) date) 08/01/22 unknown) (unknown) (no (unknown) (unknown) Dextrose (units (unkno wn) date) 5%-Lactated Ringers unknown) IV 84 mls/hr (unknown) (no (unknown) (unknown) Dextrose/Lactated (units (unknown) date) Ringer's 1,000 mls unknown) @ 84 mls/hr 08/01/22 20:15 08/01/22 (unknown) (no (unknown) (unknown) Dr. Sena, (units (unk nown) date) hospitalist unknown) (unknown) (no (unknown) (unknown) Eos # (Auto) 100 (units (unknown) date) unknown) (unknown) (no (unknown) (unknown) Eos # (Auto) (units (u nknown) date) unknown) (unknown) (no (unknown) (unknown) Eos % (Auto) 2.9 (units (unknown) date) unknown) (unknown) (no (unknown) (unknown) Eos % (Auto) (units (u nknown) date) unknown) (unknown) (no (unknown) (unknown) Estimated GFR > 60 (units (unknown) date) unknown) (unknown) (no (unknown) (unknown) Estimated GFR (units ( unknown) date) unknown) (unknown) (no (unknown) (unknown) Exam Narrative: (units (unknown) date) unknown) (unknown) (no (unknown) (unknown) Exam (units (unkno wn) date) unknown) (unknown) (no (unknown) (unknown) Fluoxetine 10 Mg (units (unknown) date) Capsule PO Not unknown) Given (unknown) (no (unknown) (unknown) Fluoxetine HCl 10 (units (unknown) date) mg 08/01/22 09:00 unknown) 08/02/22 08:11 (unknown) (no (unknown) (unknown) Folate 11.9 (units (un known) date) unknown) (unknown) (no (unknown) (unknown) Folate (units (unkno wn) date) unknown) (unknown) (no (unknown) (unknown) Folic Acid 1 Mg (units (unknown) date) Tablet PO Not Given unknown) (unknown) (no (unknown) (unknown) Folic Acid 1 mg (units (unknown) date) 08/01/22 09:00 unknown) 08/02/22 08:11 (unknown) (no (unknown) (unknown) Free T4 1.13 (units (u nknown) date) unknown) (unknown) (no (unknown) (unknown) Free T4 (units (unkno wn) date) unknown) (unknown) (no (unknown) (unknown) Generic Name Dose (units (unknown) date) Route Start Last unknown) Admin (unknown) (no (unknown) (unknown) Given severity of (units (unknown) date) sx: continue unknown) current medications today (unknown) (no (unknown) (unknown) Glucose 122 H (units ( unknown) date) unknown) (unknown) (no (unknown) (unknown) Glucose (units (unkno wn) date) unknown) (unknown) (no (unknown) (unknown) Hct 28.6 L (units (unk nown) date) unknown) (unknown) (no (unknown) (unknown) Hct (units (unkno wn) date) unknown) (unknown) (no (unknown) (unknown) Hgb 9.4 L (units (unkn own) date) unknown) (unknown) (no (unknown) (unknown) Hgb (units (unkno wn) date) unknown) (unknown) (no (unknown) (unknown) Home Medications (units (unknown) date) unknown) (unknown) (no (unknown) (unknown) Hydroxyzine (units (un known) date) Pamoate 25 Mg unknown) Capsule PO Not Given (unknown) (no (unknown) (unknown) Hydroxyzine (units (un known) date) Pamoate 50 mg unknown) 08/01/22 09:00 08/02/22 08:11 (unknown) (no (unknown) (unknown) IF CAMERA (units (unkn own) date) ACTIVATED, patient unknown) seen via real-time interactive audiovisual (unknown) (no (unknown) (unknown) Interval history: (units (unknown) date) unknown) (unknown) (no (unknown) (unknown) [facility] (units (unknown) date) [address] unknown) [place] [address] (unknown) (no (unknown) (unknown) Laboratory Results (units (unknown) date) - last 24 hr unknown) (unknown) (no (unknown) (unknown) Labs (units (unkno wn) date) unknown) (unknown) (no (unknown) (unknown) Labs: (units (unkno wn) date) unknown) (unknown) (no (unknown) (unknown) Lorazepam 0 mg (units (unknown) date) 08/01/22 08:00 unknown) 08/01/22 10:20 (unknown) (no (unknown) (unknown) Lorazepam 2 Mg/Ml (units (unknown) date) Inj IV 2 mg unknown) (unknown) (no (unknown) (unknown) Lymph # (Auto) (units (unknown) date) 1200 unknown) (unknown) (no (unknown) (unknown) Lymph # (Auto) (units (unknown) date) unknown) (unknown) (no (unknown) (unknown) Lymph % (Auto) (units (unknown) date) 24.0 L unknown) (unknown) (no (unknown) (unknown) Lymph % (Auto) (units (unknown) date) unknown) (unknown) (no (unknown) (unknown) MCH 26.6 (units (unkno wn) date) unknown) (unknown) (no (unknown) (unknown) MCH (units (unkno wn) date) unknown) (unknown) (no (unknown) (unknown) MCHC 32.8 (units (unkn own) date) unknown) (unknown) (no (unknown) (unknown) MCHC (units (unkno wn) date) unknown) (unknown) (no (unknown) (unknown) MCV 81.1 (units (unkno wn) date) unknown) (unknown) (no (unknown) (unknown) MCV (units (unkno wn) date) unknown) (unknown) (no (unknown) (unknown) MVI, folate, (units (u nknown) date) thiamine unknown) (unknown) (no (unknown) (unknown) Medications: (units (u nknown) date) unknown) (unknown) (no (unknown) (unknown) Mental status (units ( unknown) date) improving unknown) (unknown) (no (unknown) (unknown) Yates # (Auto) 200 (units (unknown) date) unknown) (unknown) (no (unknown) (unknown) Yates # (Auto) (units ( unknown) date) unknown) (unknown) (no (unknown) (unknown) Yates % (Auto) 5.0 (units (unknown) date) unknown) (unknown) (no (unknown) (unknown) Yates % (Auto) (units ( unknown) date) unknown) (unknown) (no (unknown) (unknown) Multivitamin 1 (units (unknown) date) Tablet PO Not Given unknown) (unknown) (no (unknown) (unknown) Multivitamins 1 (units (unknown) date) tab 08/01/22 09:00 unknown) 08/02/22 08:11 (unknown) (no (unknown) (unknown) Narrative (units (unkn own) date) unknown) (unknown) (no (unknown) (unknown) Nasal Screen MRSA (units (unknown) date) (PCR) Not detected unknown) (unknown) (no (unknown) (unknown) Nasal Screen MRSA (units (unknown) date) (PCR) unknown) (unknown) (no (unknown) (unknown) Neut # (Auto) 3400 (units (unknown) date) unknown) (unknown) (no (unknown) (unknown) Neut # (Auto) (units ( unknown) date) unknown) (unknown) (no (unknown) (unknown) Neut % (Auto) 67.3 (units (unknown) date) unknown) (unknown) (no (unknown) (unknown) Neut % (Auto) (units ( unknown) date) unknown) (unknown) (no (unknown) (unknown) Objective (units (unkn own) date) unknown) (unknown) (no (unknown) (unknown) Other (units (unkno wn) date) participants/roles: unknown) Bedside RN (unknown) (no (unknown) (unknown) Other: (units (unkno wn) date) unknown) (unknown) (no (unknown) (unknown) Oxygen Delivery (units (unknown) date) Method Room Air unknown) (unknown) (no (unknown) (unknown) Oxygen Delivery (units (unknown) date) Method unknown) (unknown) (no (unknown) (unknown) Oxygen Flow Rate 0 (units (unknown) date) unknown) (unknown) (no (unknown) (unknown) Pantoprazole 40 Mg (units (unknown) date) Vial IV 40 mg unknown) (unknown) (no (unknown) (unknown) Pantoprazole (units (u nknown) date) Sodium 40 mg unknown) 08/01/22 09:00 08/01/22 08:21 (unknown) (no (unknown) (unknown) Patient Location: (units (unknown) date) ICU unknown) (unknown) (no (unknown) (unknown) Patient remains on (units (unknown) date) precedex gtt, CIWA unknown) with benzos (unknown) (no (unknown) (unknown) Patient: (units (unkno wn) date) Sarah Connors R unknown) MR#: M (unknown) (no (unknown) (unknown) Phenobarbital 60 (units (unknown) date) mg 08/01/22 09:00 unknown) 08/01/22 21:26 (unknown) (no (unknown) (unknown) Phenobarbital 65 (units (unknown) date) Mg/Ml Vial IV 60 mg unknown) (unknown) (no (unknown) (unknown) Plan for trial of (units (unknown) date) weaning precedex unknown) tomorrow am (unknown) (no (unknown) (unknown) Plan (units (unkno wn) date) unknown) (unknown) (no (unknown) (unknown) Plt Count 157 (units ( unknown) date) unknown) (unknown) (no (unknown) (unknown) Plt Count (units (unkn own) date) unknown) (unknown) (no (unknown) (unknown) Potassium 3.3 L (units (unknown) date) unknown) (unknown) (no (unknown) (unknown) Potassium (units (unkn own) date) unknown) (unknown) (no (unknown) (unknown) Precedex IV 1 (units ( unknown) date) mcg/kg/hr unknown) (unknown) (no (unknown) (unknown) Precedex gtt, (units ( unknown) date) scheduled unknown) phenobarb, librium (unknown) (no (unknown) (unknown) Protocol (units (unkno wn) date) unknown) (unknown) (no (unknown) (unknown) Provider location (units (unknown) date) (State): [place] unknown) (unknown) (no (unknown) (unknown) Provider: (units (unkn own) date) Uyen Prince MD unknown) (unknown) (no (unknown) (unknown) Pulse Oximetry 97 (units (unknown) date) 100 unknown) (unknown) (no (unknown) (unknown) Pulse Oximetry 97 (units (unknown) date) 98 98 unknown) (unknown) (no (unknown) (unknown) Pulse Rate 55 L 57 (units (unknown) date) L 57 L unknown) (unknown) (no (unknown) (unknown) Pulse Rate 58 L 59 (units (unknown) date) L unknown) (unknown) (no (unknown) (unknown) Pyridoxine 100 (units (unknown) date) Mg/Ml Vial IV Not unknown) Given (unknown) (no (unknown) (unknown) Pyridoxine HCl 100 (units (unknown) date) mg 08/01/22 09:00 unknown) 08/01/22 09:35 (unknown) (no (unknown) (unknown) Q6HR SANDY (units (unkno wn) date) unknown) (unknown) (no (unknown) (unknown) RBC 3.53 L (units (unk nown) date) unknown) (unknown) (no (unknown) (unknown) RBC Morphology See (units (unknown) date) below unknown) (unknown) (no (unknown) (unknown) RBC Morphology (units (unknown) date) unknown) (unknown) (no (unknown) (unknown) RBC (units (unkno wn) date) unknown) (unknown) (no (unknown) (unknown) RDW 20.1 H (units (unk nown) date) unknown) (unknown) (no (unknown) (unknown) RDW (units (unkno wn) date) unknown) (unknown) (no (unknown) (unknown) Remains in ICU for (units (unknown) date) acute alcohol unknown) withdrawal with DT's (unknown) (no (unknown) (unknown) Resp (units (unkno wn) date) unknown) (unknown) (no (unknown) (unknown) Respiratory Rate (units (unknown) date) 17 17 18 unknown) (unknown) (no (unknown) (unknown) Respiratory Rate (units (unknown) date) 18 17 unknown) (unknown) (no (unknown) (unknown) Signed By: (units (unk nown) date) unknown) (unknown) (no (unknown) (unknown) Sodium 135 L (units (u nknown) date) unknown) (unknown) (no (unknown) (unknown) Sodium (units (unkno wn) date) unknown) (unknown) (no (unknown) (unknown) Status: Acute (units ( unknown) date) unknown) (unknown) (no (unknown) (unknown) Subjective (units (unk nown) date) unknown) (unknown) (no (unknown) (unknown) TITRATE SANDY 13.494 (units (unknown) date) mls/hr unknown) (unknown) (no (unknown) (unknown) Teleintensivist (units (unknown) date) Progress Note unknown) (unknown) (no (unknown) (unknown) Temperature 98.7 F (units (unknown) date) unknown) (unknown) (no (unknown) (unknown) Temperature (units (un known) date) unknown) (unknown) (no (unknown) (unknown) Thiamine HCl 100 (units (unknown) date) mg/ Sodium 101 mls unknown) @ 404 mls/hr 08/01/22 09:00 08/01/22 (unknown) (no (unknown) (unknown) Time Spent With (units (unknown) date) Patient unknown) (unknown) (no (unknown) (unknown) Time with patient: (units (unknown) date) 30 to 49 minutes unknown) with 50% spent counseling/coordina ting care (unknown) (no (unknown) (unknown) Trade Name Freq (units (unknown) date) PRN Reason Stop unknown) Dose Admin (unknown) (no (unknown) (unknown) Visit Medications (units (unknown) date) (administered) unknown) (unknown) (no (unknown) (unknown) Vital Signs (units (un known) date) unknown) (unknown) (no (unknown) (unknown) Vitamin B12 401 (units (unknown) date) unknown) (unknown) (no (unknown) (unknown) Vitamin B12 (units (un known) date) unknown) (unknown) (no (unknown) (unknown) WBC 5.0 D (units (unkn own) date) unknown) (unknown) (no (unknown) (unknown) WBC (units (unkno wn) date) unknown) (unknown) (no (unknown) (unknown) [Embedded Image (units (unknown) date) Not Available] unknown) (unknown) (no (unknown) (unknown) [Rx Confirmed (units ( unknown) date) 08/01/22] unknown) (unknown) (no (unknown) (unknown) along with (units (unk nown) date) scheduled unknown) phenobarb, librium (unknown) (no (unknown) (unknown) communication: (units (unknown) date) Camera activated unknown) (unknown) (no (unknown) (unknown) dexmedeTOMIDine in (units (unknown) date) 0.9 % NaCL 400 mcg unknown) in 100 mls @ 26.989 mls/hr 08/01/22 (unknown) (no (unknown) (unknown) fluoxetine 10 mg (units (unknown) date) capsule 10 mg PO unknown) DAILY 07/13/22 [History Confirmed 08/01/22] (unknown) (no (unknown) (unknown) gentle hydration (units (unknown) date) unknown) (unknown) (no (unknown) (unknown) hydroxyzine HCl 50 (units (unknown) date) mg tablet 50 mg PO unknown) DAILY 07/13/22 [History Confirmed (unknown) (no (unknown) (unknown) management (units (unk nown) date) unknown) (unknown) (no (unknown) (unknown) multivitamin with (units (unknown) date) folic acid 400 mcg unknown) tablet (Tab-A-Kael) 1 tab PO DAILY #30 tabs (unknown) (no (unknown) (unknown) no apparent (units (un known) date) distress unknown) (unknown) (no (unknown) (unknown) pantoprazole 40 mg (units (unknown) date) tablet,delayed unknown) release 40 mg PO 0700 #30 tabs 07/14/22 [Rx (unknown) (no (unknown) (unknown) quetiapine 300 mg (units (unknown) date) tablet 300 mg PO unknown) DAILY 07/13/22 [History Confirmed 08/01/22] (unknown) (no (unknown) (unknown) replace K (units (unkn own) date) unknown) (unknown) (no (unknown) (unknown) thiamine (units (unkno wn) date) mononitrate (vit unknown) B1) 100 mg tablet 100 mg PO DAILY #30 tabs 07/14/22 Result panel [id number] (unknown) (no (unknown) (unknown) (no value) (units (unk nown) date) unknown) (unknown) (no (unknown) (unknown) (1) Alcohol (units (un known) date) withdrawal unknown) delirium, acute, hyperactive: (unknown) (no (unknown) (unknown) (2) Alcohol (units (un known) date) withdrawal: unknown) (unknown) (no (unknown) (unknown) (Critical care (units (unknown) date) time 35 minutes.) unknown) (unknown) (no (unknown) (unknown) (past 8 hours): (units (unknown) date) unknown) (unknown) (no (unknown) (unknown) [id number] (units (unkn own) date) unknown) (unknown) (no (unknown) (unknown) 02:00 08/02/22 (units (unknown) date) unknown) (unknown) (no (unknown) (unknown) 07/14/22 [Rx (units (u nknown) date) Confirmed 08/01/22] unknown) (unknown) (no (unknown) (unknown) 08/01/22 08/01/22 (units (unknown) date) 08/01/22 unknown) (unknown) (no (unknown) (unknown) 08/01/22] (units (unkn own) date) unknown) (unknown) (no (unknown) (unknown) 08/02/22 08/02/22 (units (unknown) date) unknown) (unknown) (no (unknown) (unknown) 08/02/22 03:48 (units (unknown) date) unknown) (unknown) (no (unknown) (unknown) 08/02/22 (units (unkno wn) date) unknown) (unknown) (no (unknown) (unknown) 03:00 08/02/22 (units (unknown) date) unknown) (unknown) (no (unknown) (unknown) 03:48 03:48 (units (un known) date) unknown) (unknown) (no (unknown) (unknown) 04:00 (units (unkno wn) date) unknown) (unknown) (no (unknown) (unknown) 05:00 08/02/22 (units (unknown) date) unknown) (unknown) (no (unknown) (unknown) 05:10 05:10 09:25 (units (unknown) date) unknown) (unknown) (no (unknown) (unknown) 06:00 (units (unkno wn) date) unknown) (unknown) (no (unknown) (unknown) 06:35 08/02/22 (units (unknown) date) unknown) (unknown) (no (unknown) (unknown) 08:10 (units (unkno wn) date) unknown) (unknown) (no (unknown) (unknown) 08:15 08/02/22 (units (unknown) date) 06:01 unknown) (unknown) (no (unknown) (unknown) 2 MCG/KG/HR (units (un known) date) unknown) (unknown) (no (unknown) (unknown) 21:09 (units (unkno wn) date) unknown) (unknown) (no (unknown) (unknown) Administration (units (unknown) date) unknown) (unknown) (no (unknown) (unknown) Age/Sex: 31 / F (units (unknown) date) unknown) (unknown) (no (unknown) (unknown) Alcohol Withdrawal (units (unknown) date) unknown) (unknown) (no (unknown) (unknown) Anisocytosis 1+ H (units (unknown) date) unknown) (unknown) (no (unknown) (unknown) Anisocytosis (units (u nknown) date) unknown) (unknown) (no (unknown) (unknown) Assessment + Plan (units (unknown) date) narrative: unknown) (unknown) (no (unknown) (unknown) Assessment + Plan (units (unknown) date) unknown) (unknown) (no (unknown) (unknown) Assessment and (units (unknown) date) plan unknown) (unknown) (no (unknown) (unknown) Ativan per CIWA (units (unknown) date) protocol unknown) (unknown) (no (unknown) (unknown) Awake, alert (units (u nknown) date) unknown) (unknown) (no (unknown) (unknown) BID SANDY (units (unkno wn) date) Administration unknown) (unknown) (no (unknown) (unknown) BUN 5 L (units (unkno wn) date) unknown) (unknown) (no (unknown) (unknown) BUN (units (unkno wn) date) unknown) (unknown) (no (unknown) (unknown) BUN/Creatinine (units (unknown) date) Ratio 9.3 unknown) (unknown) (no (unknown) (unknown) BUN/Creatinine (units (unknown) date) Ratio unknown) (unknown) (no (unknown) (unknown) Baso # (Auto) 0 (units (unknown) date) unknown) (unknown) (no (unknown) (unknown) Baso # (Auto) (units ( unknown) date) unknown) (unknown) (no (unknown) (unknown) Baso % (Auto) 0.8 (units (unknown) date) unknown) (unknown) (no (unknown) (unknown) Baso % (Auto) (units ( unknown) date) unknown) (unknown) (no (unknown) (unknown) Blood Pressure (units (unknown) date) 115/77 123/76 unknown) 119/77 (unknown) (no (unknown) (unknown) Blood Pressure (units (unknown) date) 124/75 unknown) (unknown) (no (unknown) (unknown) CIWAPRN PRN (units (un known) date) Administration unknown) (unknown) (no (unknown) (unknown) CONT SANDY (units (unkno wn) date) Administration unknown) (unknown) (no (unknown) (unknown) Calcium 7.9 L (units ( unknown) date) unknown) (unknown) (no (unknown) (unknown) Calcium (units (unkno wn) date) unknown) (unknown) (no (unknown) (unknown) Carbon Dioxide 24 (units (unknown) date) unknown) (unknown) (no (unknown) (unknown) Carbon Dioxide (units (unknown) date) unknown) (unknown) (no (unknown) (unknown) Chlordiazepoxide (units (unknown) date) 25 Mg Capsule PO unknown) Not Given (unknown) (no (unknown) (unknown) Chlordiazepoxide (units (unknown) date) HCl 50 mg 08/01/22 unknown) 12:00 08/02/22 06:01 (unknown) (no (unknown) (unknown) Chloride 105 (units (u nknown) date) unknown) (unknown) (no (unknown) (unknown) Chloride IV Not (units (unknown) date) Given unknown) (unknown) (no (unknown) (unknown) Chloride (units (unkno wn) date) unknown) (unknown) (no (unknown) (unknown) Confirmed (units (unkn own) date) 08/01/22] unknown) (unknown) (no (unknown) (unknown) Consent obtained (units (unknown) date) for unknown) 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 unknown) Requires ICU for acute alcohol withdrawal (unknown) (no (unknown) (unknown) Creatinine 0.54 (units (unknown) date) unknown) (unknown) (no (unknown) (unknown) Creatinine (units (unk nown) date) unknown) (unknown) (no (unknown) (unknown) Current (units (unkno wn) date) Medications unknown) (unknown) (no (unknown) (unknown) DAILY SANDY (units (unkn own) date) Administration unknown) (unknown) (no (unknown) (unknown) DAILY SANDY (units (unkn own) date) unknown) (unknown) (no (unknown) (unknown) : 1990 (units (unknown) date) Acct:[id number] unknown) (unknown) (no (unknown) (unknown) Date Patient Seen: (units (unknown) date) 08/02/22 unknown) (unknown) (no (unknown) (unknown) Date of Service: (units (unknown) date) 08/01/22 unknown) (unknown) (no (unknown) (unknown) Dextrose (units (unkno wn) date) 5%-Lactated Ringers unknown) IV 84 mls/hr (unknown) (no (unknown) (unknown) Dextrose/Lactated (units (unknown) date) Ringer's 1,000 mls unknown) @ 84 mls/hr 08/01/22 20:15 08/01/22 (unknown) (no (unknown) (unknown) Dr. Sena, (units (unk nown) date) hospitalist unknown) (unknown) (no (unknown) (unknown) Eos # (Auto) 100 (units (unknown) date) unknown) (unknown) (no (unknown) (unknown) Eos # (Auto) (units (u nknown) date) unknown) (unknown) (no (unknown) (unknown) Eos % (Auto) 2.9 (units (unknown) date) unknown) (unknown) (no (unknown) (unknown) Eos % (Auto) (units (u nknown) date) unknown) (unknown) (no (unknown) (unknown) Estimated GFR > 60 (units (unknown) date) unknown) (unknown) (no (unknown) (unknown) Estimated GFR (units ( unknown) date) unknown) (unknown) (no (unknown) (unknown) Exam Narrative: (units (unknown) date) unknown) (unknown) (no (unknown) (unknown) Exam (units (unkno wn) date) unknown) (unknown) (no (unknown) (unknown) Fluoxetine 10 Mg (units (unknown) date) Capsule PO Not unknown) Given (unknown) (no (unknown) (unknown) Fluoxetine HCl 10 (units (unknown) date) mg 08/01/22 09:00 unknown) 08/02/22 08:11 (unknown) (no (unknown) (unknown) Folate 11.9 (units (un known) date) unknown) (unknown) (no (unknown) (unknown) Folate (units (unkno wn) date) unknown) (unknown) (no (unknown) (unknown) Folic Acid 1 Mg (units (unknown) date) Tablet PO Not Given unknown) (unknown) (no (unknown) (unknown) Folic Acid 1 mg (units (unknown) date) 08/01/22 09:00 unknown) 08/02/22 08:11 (unknown) (no (unknown) (unknown) Free T4 1.13 (units (u nknown) date) unknown) (unknown) (no (unknown) (unknown) Free T4 (units (unkno wn) date) unknown) (unknown) (no (unknown) (unknown) Generic Name Dose (units (unknown) date) Route Start Last unknown) Admin (unknown) (no (unknown) (unknown) Given severity of (units (unknown) date) sx: continue unknown) current medications today (unknown) (no (unknown) (unknown) Glucose 122 H (units ( unknown) date) unknown) (unknown) (no (unknown) (unknown) Glucose (units (unkno wn) date) unknown) (unknown) (no (unknown) (unknown) Hct 28.6 L (units (unk nown) date) unknown) (unknown) (no (unknown) (unknown) Hct (units (unkno wn) date) unknown) (unknown) (no (unknown) (unknown) Hgb 9.4 L (units (unkn own) date) unknown) (unknown) (no (unknown) (unknown) Hgb (units (unkno wn) date) unknown) (unknown) (no (unknown) (unknown) Home Medications (units (unknown) date) unknown) (unknown) (no (unknown) (unknown) Hydroxyzine (units (un known) date) Pamoate 25 Mg unknown) Capsule PO Not Given (unknown) (no (unknown) (unknown) Hydroxyzine (units (un known) date) Pamoate 50 mg unknown) 08/01/22 09:00 08/02/22 08:11 (unknown) (no (unknown) (unknown) IF CAMERA (units (unkn own) date) ACTIVATED, patient unknown) seen via real-time interactive audiovisual (unknown) (no (unknown) (unknown) Interval history: (units (unknown) date) unknown) (unknown) (no (unknown) (unknown) [facility] (units (unknown) date) [address] [place] [address] unknown) [place] [address] (unknown) (no (unknown) (unknown) Laboratory Results (units (unknown) date) - last 24 hr unknown) (unknown) (no (unknown) (unknown) Labs (units (unkno wn) date) unknown) (unknown) (no (unknown) (unknown) Labs: (units (unkno wn) date) unknown) (unknown) (no (unknown) (unknown) Lorazepam 0 mg (units (unknown) date) 08/01/22 08:00 unknown) 08/01/22 10:20 (unknown) (no (unknown) (unknown) Lorazepam 2 Mg/Ml (units (unknown) date) Inj IV 2 mg unknown) (unknown) (no (unknown) (unknown) Lymph # (Auto) (units (unknown) date) 1200 unknown) (unknown) (no (unknown) (unknown) Lymph # (Auto) (units (unknown) date) unknown) (unknown) (no (unknown) (unknown) Lymph % (Auto) (units (unknown) date) 24.0 L unknown) (unknown) (no (unknown) (unknown) Lymph % (Auto) (units (unknown) date) unknown) (unknown) (no (unknown) (unknown) MCH 26.6 (units (unkno wn) date) unknown) (unknown) (no (unknown) (unknown) MCH (units (unkno wn) date) unknown) (unknown) (no (unknown) (unknown) MCHC 32.8 (units (unkn own) date) unknown) (unknown) (no (unknown) (unknown) MCHC (units (unkno wn) date) unknown) (unknown) (no (unknown) (unknown) MCV 81.1 (units (unkno wn) date) unknown) (unknown) (no (unknown) (unknown) MCV (units (unkno wn) date) unknown) (unknown) (no (unknown) (unknown) MVI, folate, (units (u nknown) date) thiamine unknown) (unknown) (no (unknown) (unknown) Medications: (units (u nknown) date) unknown) (unknown) (no (unknown) (unknown) Mental status (units ( unknown) date) improving unknown) (unknown) (no (unknown) (unknown) Yates # (Auto) 200 (units (unknown) date) unknown) (unknown) (no (unknown) (unknown) Yates # (Auto) (units ( unknown) date) unknown) (unknown) (no (unknown) (unknown) Yates % (Auto) 5.0 (units (unknown) date) unknown) (unknown) (no (unknown) (unknown) Yates % (Auto) (units ( unknown) date) unknown) (unknown) (no (unknown) (unknown) Multivitamin 1 (units (unknown) date) Tablet PO Not Given unknown) (unknown) (no (unknown) (unknown) Multivitamins 1 (units (unknown) date) tab 08/01/22 09:00 unknown) 08/02/22 08:11 (unknown) (no (unknown) (unknown) Narrative (units (unkn own) date) unknown) (unknown) (no (unknown) (unknown) Nasal Screen MRSA (units (unknown) date) (PCR) Not detected unknown) (unknown) (no (unknown) (unknown) Nasal Screen MRSA (units (unknown) date) (PCR) unknown) (unknown) (no (unknown) (unknown) Neut # (Auto) 3400 (units (unknown) date) unknown) (unknown) (no (unknown) (unknown) Neut # (Auto) (units ( unknown) date) unknown) (unknown) (no (unknown) (unknown) Neut % (Auto) 67.3 (units (unknown) date) unknown) (unknown) (no (unknown) (unknown) Neut % (Auto) (units ( unknown) date) unknown) (unknown) (no (unknown) (unknown) Objective (units (unkn own) date) unknown) (unknown) (no (unknown) (unknown) Other (units (unkno wn) date) participants/roles: unknown) Bedside RN (unknown) (no (unknown) (unknown) Other: (units (unkno wn) date) unknown) (unknown) (no (unknown) (unknown) Oxygen Delivery (units (unknown) date) Method Room Air unknown) (unknown) (no (unknown) (unknown) Oxygen Delivery (units (unknown) date) Method unknown) (unknown) (no (unknown) (unknown) Oxygen Flow Rate 0 (units (unknown) date) unknown) (unknown) (no (unknown) (unknown) PPx: SUP- PPI (units ( unknown) date) unknown) (unknown) (no (unknown) (unknown) Pantoprazole 40 Mg (units (unknown) date) Vial IV 40 mg unknown) (unknown) (no (unknown) (unknown) Pantoprazole (units (u nknown) date) Sodium 40 mg unknown) 08/01/22 09:00 08/01/22 08:21 (unknown) (no (unknown) (unknown) Patient Location: (units (unknown) date) ICU unknown) (unknown) (no (unknown) (unknown) Patient remains on (units (unknown) date) precedex gtt, CIWA unknown) with benzos (unknown) (no (unknown) (unknown) Patient: (units (unkno wn) date) Sarah Connors R unknown) MR#: M (unknown) (no (unknown) (unknown) Phenobarbital 60 (units (unknown) date) mg 08/01/22 09:00 unknown) 08/01/22 21:26 (unknown) (no (unknown) (unknown) Phenobarbital 65 (units (unknown) date) Mg/Ml Vial IV 60 mg unknown) (unknown) (no (unknown) (unknown) Plan for trial of (units (unknown) date) weaning precedex unknown) tomorrow am (unknown) (no (unknown) (unknown) Plan (units (unkno wn) date) unknown) (unknown) (no (unknown) (unknown) Plt Count 157 (units ( unknown) date) unknown) (unknown) (no (unknown) (unknown) Plt Count (units (unkn own) date) unknown) (unknown) (no (unknown) (unknown) Potassium 3.3 L (units (unknown) date) unknown) (unknown) (no (unknown) (unknown) Potassium (units (unkn own) date) unknown) (unknown) (no (unknown) (unknown) Precedex IV 1 (units ( unknown) date) mcg/kg/hr unknown) (unknown) (no (unknown) (unknown) Precedex gtt, (units ( unknown) date) scheduled unknown) phenobarb, librium (unknown) (no (unknown) (unknown) Protocol (units (unkno wn) date) unknown) (unknown) (no (unknown) (unknown) Provider location (units (unknown) date) (State): [place] unknown) (unknown) (no (unknown) (unknown) Provider: (units (unkn own) date) Uyen Prince MD unknown) (unknown) (no (unknown) (unknown) Pulse Oximetry 97 (units (unknown) date) 100 unknown) (unknown) (no (unknown) (unknown) Pulse Oximetry 97 (units (unknown) date) 98 98 unknown) (unknown) (no (unknown) (unknown) Pulse Rate 55 L 57 (units (unknown) date) L 57 L unknown) (unknown) (no (unknown) (unknown) Pulse Rate 58 L 59 (units (unknown) date) L unknown) (unknown) (no (unknown) (unknown) Pyridoxine 100 (units (unknown) date) Mg/Ml Vial IV Not unknown) Given (unknown) (no (unknown) (unknown) Pyridoxine HCl 100 (units (unknown) date) mg 08/01/22 09:00 unknown) 08/01/22 09:35 (unknown) (no (unknown) (unknown) Q6HR SANDY (units (unkno wn) date) unknown) (unknown) (no (unknown) (unknown) RBC 3.53 L (units (unk nown) date) unknown) (unknown) (no (unknown) (unknown) RBC Morphology See (units (unknown) date) below unknown) (unknown) (no (unknown) (unknown) RBC Morphology (units (unknown) date) unknown) (unknown) (no (unknown) (unknown) RBC (units (unkno wn) date) unknown) (unknown) (no (unknown) (unknown) RDW 20.1 H (units (unk n) date) unknown) (unknown) (no (unknown) (unknown) RDW (units (unkno wn) date) unknown) (unknown) (no (unknown) (unknown) Remains in ICU for (units (unknown) date) acute alcohol unknown) withdrawal with DT's (unknown) (no (unknown) (unknown) Resp (units (unkno wn) date) unknown) (unknown) (no (unknown) (unknown) Respiratory Rate (units (unknown) date) 17 17 18 unknown) (unknown) (no (unknown) (unknown) Respiratory Rate (units (unknown) date) 18 17 unknown) (unknown) (no (unknown) (unknown) Signed By: (units (unk n) date) unknown) (unknown) (no (unknown) (unknown) Sodium 135 L (units (u nknown) date) unknown) (unknown) (no (unknown) (unknown) Sodium (units (unkno wn) date) unknown) (unknown) (no (unknown) (unknown) Status: Acute (units ( unknown) date) unknown) (unknown) (no (unknown) (unknown) Subjective (units (unk nown) date) unknown) (unknown) (no (unknown) (unknown) TITRATE SANDY 13.494 (units (unknown) date) mls/hr unknown) (unknown) (no (unknown) (unknown) Teleintensivist (units (unknown) date) Progress Note unknown) (unknown) (no (unknown) (unknown) Temperature 98.7 F (units (unknown) date) unknown) (unknown) (no (unknown) (unknown) Temperature (units (un known) date) unknown) (unknown) (no (unknown) (unknown) Thiamine HCl 100 (units (unknown) date) mg/ Sodium 101 mls unknown) @ 404 mls/hr 08/01/22 09:00 08/01/22 (unknown) (no (unknown) (unknown) Time Spent With (units (unknown) date) Patient unknown) (unknown) (no (unknown) (unknown) Time with patient: (units (unknown) date) 30 to 49 minutes unknown) with 50% spent counseling/coordina ting care (unknown) (no (unknown) (unknown) Trade Name Freq (units (unknown) date) PRN Reason Stop unknown) Dose Admin (unknown) (no (unknown) (unknown) VTE, SCD's (units (unk nown) date) encourage mobility unknown) as able (unknown) (no (unknown) (unknown) Visit Medications (units (unknown) date) (administered) unknown) (unknown) (no (unknown) (unknown) Vital Signs (units (un known) date) unknown) (unknown) (no (unknown) (unknown) Vitamin B12 401 (units (unknown) date) unknown) (unknown) (no (unknown) (unknown) Vitamin B12 (units (un known) date) unknown) (unknown) (no (unknown) (unknown) WBC 5.0 D (units (unkn own) date) unknown) (unknown) (no (unknown) (unknown) WBC (units (unkno wn) date) unknown) (unknown) (no (unknown) (unknown) [Embedded Image (units (unknown) date) Not Available] unknown) (unknown) (no (unknown) (unknown) [Rx Confirmed (units ( unknown) date) 08/01/22] unknown) (unknown) (no (unknown) (unknown) along with (units (unk nown) date) scheduled unknown) phenobarb, librium (unknown) (no (unknown) (unknown) communication: (units (unknown) date) Camera activated unknown) (unknown) (no (unknown) (unknown) dexmedeTOMIDine in (units (unknown) date) 0.9 % NaCL 400 mcg unknown) in 100 mls @ 26.989 mls/hr 08/01/22 (unknown) (no (unknown) (unknown) fluoxetine 10 mg (units (unknown) date) capsule 10 mg PO unknown) DAILY 07/13/22 [History Confirmed 08/01/22] (unknown) (no (unknown) (unknown) gentle hydration (units (unknown) date) unknown) (unknown) (no (unknown) (unknown) hydroxyzine HCl 50 (units (unknown) date) mg tablet 50 mg PO unknown) DAILY 07/13/22 [History Confirmed (unknown) (no (unknown) (unknown) management (units (unk nown) date) unknown) (unknown) (no (unknown) (unknown) multivitamin with (units (unknown) date) folic acid 400 mcg unknown) tablet (Tab-A-Kael) 1 tab PO DAILY #30 tabs (unknown) (no (unknown) (unknown) no apparent (units (un known) date) distress unknown) (unknown) (no (unknown) (unknown) pantoprazole 40 mg (units (unknown) date) tablet,delayed unknown) release 40 mg PO 0700 #30 tabs 07/14/22 [Rx (unknown) (no (unknown) (unknown) quetiapine 300 mg (units (unknown) date) tablet 300 mg PO unknown) DAILY 07/13/22 [History Confirmed 08/01/22] (unknown) (no (unknown) (unknown) replace K (units (unkn own) date) unknown) (unknown) (no (unknown) (unknown) thiamine (units (unkno wn) date) mononitrate (vit unknown) B1) 100 mg tablet 100 mg PO DAILY #30 tabs 07/14/22 Result panel [id number] (unknown) (no (unknown) (unknown) (no value) (units (unk nown) date) unknown) (unknown) (no (unknown) (unknown) (1) Alcohol (units (un known) date) withdrawal unknown) delirium, acute, hyperactive: (unknown) (no (unknown) (unknown) (2) Alcohol (units (un known) date) withdrawal: unknown) (unknown) (no (unknown) (unknown) (Critical care (units (unknown) date) time 35 minutes.) unknown) (unknown) (no (unknown) (unknown) (past 8 hours): (units (unknown) date) unknown) (unknown) (no (unknown) (unknown) [phone] (units (unkn own) date) unknown) (unknown) (no (unknown) (unknown) 02:00 08/02/22 (units (unknown) date) unknown) (unknown) (no (unknown) (unknown) 07/14/22 [Rx (units (u nknown) date) Confirmed 08/01/22] unknown) (unknown) (no (unknown) (unknown) 08/01/22 08/01/22 (units (unknown) date) 08/01/22 unknown) (unknown) (no (unknown) (unknown) 08/01/22] (units (unkn own) date) unknown) (unknown) (no (unknown) (unknown) 08/02/22 08/02/22 (units (unknown) date) unknown) (unknown) (no (unknown) (unknown) 08/02/22 03:48 (units (unknown) date) unknown) (unknown) (no (unknown) (unknown) 08/02/22 1001 (units ( unknown) date) unknown) (unknown) (no (unknown) (unknown) 08/02/22 (units (unkno wn) date) unknown) (unknown) (no (unknown) (unknown) 03:00 08/02/22 (units (unknown) date) unknown) (unknown) (no (unknown) (unknown) 03:48 03:48 (units (un known) date) unknown) (unknown) (no (unknown) (unknown) 04:00 (units (unkno wn) date) unknown) (unknown) (no (unknown) (unknown) 05:00 08/02/22 (units (unknown) date) unknown) (unknown) (no (unknown) (unknown) 05:10 05:10 09:25 (units (unknown) date) unknown) (unknown) (no (unknown) (unknown) 06:00 (units (unkno wn) date) unknown) (unknown) (no (unknown) (unknown) 06:35 08/02/22 (units (unknown) date) unknown) (unknown) (no (unknown) (unknown) 08:10 (units (unkno wn) date) unknown) (unknown) (no (unknown) (unknown) 08:15 08/02/22 (units (unknown) date) 06:01 unknown) (unknown) (no (unknown) (unknown) 2 MCG/KG/HR (units (un known) date) unknown) (unknown) (no (unknown) (unknown) 21:09 (units (unkno wn) date) unknown) (unknown) (no (unknown) (unknown) Administration (units (unknown) date) unknown) (unknown) (no (unknown) (unknown) Age/Sex: 31 / F (units (unknown) date) unknown) (unknown) (no (unknown) (unknown) Alcohol Withdrawal (units (unknown) date) unknown) (unknown) (no (unknown) (unknown) Anisocytosis 1+ H (units (unknown) date) unknown) (unknown) (no (unknown) (unknown) Anisocytosis (units (u nknown) date) unknown) (unknown) (no (unknown) (unknown) Assessment + Plan (units (unknown) date) narrative: unknown) (unknown) (no (unknown) (unknown) Assessment + Plan (units (unknown) date) unknown) (unknown) (no (unknown) (unknown) Assessment and (units (unknown) date) plan unknown) (unknown) (no (unknown) (unknown) Ativan per CIWA (units (unknown) date) protocol unknown) (unknown) (no (unknown) (unknown) BID SANDY (units (unkno wn) date) Administration unknown) (unknown) (no (unknown) (unknown) BUN 5 L (units (unkno wn) date) unknown) (unknown) (no (unknown) (unknown) BUN (units (unkno wn) date) unknown) (unknown) (no (unknown) (unknown) BUN/Creatinine (units (unknown) date) Ratio 9.3 unknown) (unknown) (no (unknown) (unknown) BUN/Creatinine (units (unknown) date) Ratio unknown) (unknown) (no (unknown) (unknown) Baso # (Auto) 0 (units (unknown) date) unknown) (unknown) (no (unknown) (unknown) Baso # (Auto) (units ( unknown) date) unknown) (unknown) (no (unknown) (unknown) Baso % (Auto) 0.8 (units (unknown) date) unknown) (unknown) (no (unknown) (unknown) Baso % (Auto) (units ( unknown) date) unknown) (unknown) (no (unknown) (unknown) Blood Pressure (units (unknown) date) 115/77 123/76 unknown) 119/77 (unknown) (no (unknown) (unknown) Blood Pressure (units (unknown) date) 124/75 unknown) (unknown) (no (unknown) (unknown) CIWAPRN PRN (units (un known) date) Administration unknown) (unknown) (no (unknown) (unknown) CONT SANDY (units (unkno wn) date) Administration unknown) (unknown) (no (unknown) (unknown) Calcium 7.9 L (units ( unknown) date) unknown) (unknown) (no (unknown) (unknown) Calcium (units (unkno wn) date) unknown) (unknown) (no (unknown) (unknown) Carbon Dioxide 24 (units (unknown) date) unknown) (unknown) (no (unknown) (unknown) Carbon Dioxide (units (unknown) date) unknown) (unknown) (no (unknown) (unknown) Chlordiazepoxide (units (unknown) date) 25 Mg Capsule PO unknown) Not Given (unknown) (no (unknown) (unknown) Chlordiazepoxide (units (unknown) date) HCl 50 mg 08/01/22 unknown) 12:00 08/02/22 06:01 (unknown) (no (unknown) (unknown) Chloride 105 (units (u nknown) date) unknown) (unknown) (no (unknown) (unknown) Chloride IV Not (units (unknown) date) Given unknown) (unknown) (no (unknown) (unknown) Chloride (units (unkno wn) date) unknown) (unknown) (no (unknown) (unknown) Confirmed (units (unkn own) date) 08/01/22] unknown) (unknown) (no (unknown) (unknown) Consent obtained (units (unknown) date) for unknown) 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 unknown) Requires ICU for acute alcohol withdrawal (unknown) (no (unknown) (unknown) Creatinine 0.54 (units (unknown) date) unknown) (unknown) (no (unknown) (unknown) Creatinine (units (unk nown) date) unknown) (unknown) (no (unknown) (unknown) Current (units (unkno wn) date) Medications unknown) (unknown) (no (unknown) (unknown) DAILY SANDY (units (unkn own) date) Administration unknown) (unknown) (no (unknown) (unknown) DAILY SANDY (units (unkn own) date) unknown) (unknown) (no (unknown) (unknown) : 1990 (units (unknown) date) Acct:[id number] unknown) (unknown) (no (unknown) (unknown) Date Patient Seen: (units (unknown) date) 08/02/22 unknown) (unknown) (no (unknown) (unknown) Date of Service: (units (unknown) date) 08/01/22 unknown) (unknown) (no (unknown) (unknown) Dextrose (units (unkno wn) date) 5%-Lactated Ringers unknown) IV 84 mls/hr (unknown) (no (unknown) (unknown) Dextrose/Lactated (units (unknown) date) Ringer's 1,000 mls unknown) @ 84 mls/hr 08/01/22 20:15 08/01/22 (unknown) (no (unknown) (unknown) Dr. Sena, (units (unk nown) date) hospitalist unknown) (unknown) (no (unknown) (unknown) Eos # (Auto) 100 (units (unknown) date) unknown) (unknown) (no (unknown) (unknown) Eos # (Auto) (units (u nknown) date) unknown) (unknown) (no (unknown) (unknown) Eos % (Auto) 2.9 (units (unknown) date) unknown) (unknown) (no (unknown) (unknown) Eos % (Auto) (units (u nknown) date) unknown) (unknown) (no (unknown) (unknown) Estimated GFR > 60 (units (unknown) date) unknown) (unknown) (no (unknown) (unknown) Estimated GFR (units ( unknown) date) unknown) (unknown) (no (unknown) (unknown) Exam Narrative: (units (unknown) date) unknown) (unknown) (no (unknown) (unknown) Exam (units (unkno wn) date) unknown) (unknown) (no (unknown) (unknown) Fluoxetine 10 Mg (units (unknown) date) Capsule PO Not unknown) Given (unknown) (no (unknown) (unknown) Fluoxetine HCl 10 (units (unknown) date) mg 08/01/22 09:00 unknown) 08/02/22 08:11 (unknown) (no (unknown) (unknown) Folate 11.9 (units (un known) date) unknown) (unknown) (no (unknown) (unknown) Folate (units (unkno wn) date) unknown) (unknown) (no (unknown) (unknown) Folic Acid 1 Mg (units (unknown) date) Tablet PO Not Given unknown) (unknown) (no (unknown) (unknown) Folic Acid 1 mg (units (unknown) date) 08/01/22 09:00 unknown) 08/02/22 08:11 (unknown) (no (unknown) (unknown) Free T4 1.13 (units (u nknown) date) unknown) (unknown) (no (unknown) (unknown) Free T4 (units (unkno wn) date) unknown) (unknown) (no (unknown) (unknown) Generic Name Dose (units (unknown) date) Route Start Last unknown) Admin (unknown) (no (unknown) (unknown) Given severity of (units (unknown) date) sx: continue unknown) current medications today (unknown) (no (unknown) (unknown) Glucose 122 H (units ( unknown) date) unknown) (unknown) (no (unknown) (unknown) Glucose (units (unkno wn) date) unknown) (unknown) (no (unknown) (unknown) Hct 28.6 L (units (unk nown) date) unknown) (unknown) (no (unknown) (unknown) Hct (units (unkno wn) date) unknown) (unknown) (no (unknown) (unknown) Hgb 9.4 L (units (unkn own) date) unknown) (unknown) (no (unknown) (unknown) Hgb (units (unkno wn) date) unknown) (unknown) (no (unknown) (unknown) Home Medications (units (unknown) date) unknown) (unknown) (no (unknown) (unknown) Hydroxyzine (units (un known) date) Pamoate 25 Mg unknown) Capsule PO Not Given (unknown) (no (unknown) (unknown) Hydroxyzine (units (un known) date) Pamoate 50 mg unknown) 08/01/22 09:00 08/02/22 08:11 (unknown) (no (unknown) (unknown) IF CAMERA (units (unkn own) date) ACTIVATED, patient unknown) seen via real-time interactive audiovisual (unknown) (no (unknown) (unknown) Interval history: (units (unknown) date) unknown) (unknown) (no (unknown) (unknown) [facility] (units (unknown) date) [address] unknown) [place] [address] (unknown) (no (unknown) (unknown) Laboratory Results (units (unknown) date) - last 24 hr unknown) (unknown) (no (unknown) (unknown) Labs (units (unkno wn) date) unknown) (unknown) (no (unknown) (unknown) Labs: (units (unkno wn) date) unknown) (unknown) (no (unknown) (unknown) Lorazepam 0 mg (units (unknown) date) 08/01/22 08:00 unknown) 08/01/22 10:20 (unknown) (no (unknown) (unknown) Lorazepam 2 Mg/Ml (units (unknown) date) Inj IV 2 mg unknown) (unknown) (no (unknown) (unknown) Lymph # (Auto) (units (unknown) date) 1200 unknown) (unknown) (no (unknown) (unknown) Lymph # (Auto) (units (unknown) date) unknown) (unknown) (no (unknown) (unknown) Lymph % (Auto) (units (unknown) date) 24.0 L unknown) (unknown) (no (unknown) (unknown) Lymph % (Auto) (units (unknown) date) unknown) (unknown) (no (unknown) (unknown) MCH 26.6 (units (unkno wn) date) unknown) (unknown) (no (unknown) (unknown) MCH (units (unkno wn) date) unknown) (unknown) (no (unknown) (unknown) MCHC 32.8 (units (unkn own) date) unknown) (unknown) (no (unknown) (unknown) MCHC (units (unkno wn) date) unknown) (unknown) (no (unknown) (unknown) MCV 81.1 (units (unkno wn) date) unknown) (unknown) (no (unknown) (unknown) MCV (units (unkno wn) date) unknown) (unknown) (no (unknown) (unknown) MVI, folate, (units (u nknown) date) thiamine unknown) (unknown) (no (unknown) (unknown) Medications: (units (u nknown) date) unknown) (unknown) (no (unknown) (unknown) Yates # (Auto) 200 (units (unknown) date) unknown) (unknown) (no (unknown) (unknown) Yates # (Auto) (units ( unknown) date) unknown) (unknown) (no (unknown) (unknown) Yates % (Auto) 5.0 (units (unknown) date) unknown) (unknown) (no (unknown) (unknown) Yates % (Auto) (units ( unknown) date) unknown) (unknown) (no (unknown) (unknown) Multivitamin 1 (units (unknown) date) Tablet PO Not Given unknown) (unknown) (no (unknown) (unknown) Multivitamins 1 (units (unknown) date) tab 08/01/22 09:00 unknown) 08/02/22 08:11 (unknown) (no (unknown) (unknown) Narrative (units (unkn own) date) unknown) (unknown) (no (unknown) (unknown) Nasal Screen MRSA (units (unknown) date) (PCR) Not detected unknown) (unknown) (no (unknown) (unknown) Nasal Screen MRSA (units (unknown) date) (PCR) unknown) (unknown) (no (unknown) (unknown) Neut # (Auto) 3400 (units (unknown) date) unknown) (unknown) (no (unknown) (unknown) Neut # (Auto) (units ( unknown) date) unknown) (unknown) (no (unknown) (unknown) Neut % (Auto) 67.3 (units (unknown) date) unknown) (unknown) (no (unknown) (unknown) Neut % (Auto) (units ( unknown) date) unknown) (unknown) (no (unknown) (unknown) Objective (units (unkn own) date) unknown) (unknown) (no (unknown) (unknown) Other (units (unkno wn) date) participants/roles: unknown) Bedside RN (unknown) (no (unknown) (unknown) Other: (units (unkno wn) date) unknown) (unknown) (no (unknown) (unknown) Oxygen Delivery (units (unknown) date) Method Room Air unknown) (unknown) (no (unknown) (unknown) Oxygen Delivery (units (unknown) date) Method unknown) (unknown) (no (unknown) (unknown) Oxygen Flow Rate 0 (units (unknown) date) unknown) (unknown) (no (unknown) (unknown) PPx: SUP- PPI (units ( unknown) date) unknown) (unknown) (no (unknown) (unknown) Pantoprazole 40 Mg (units (unknown) date) Vial IV 40 mg unknown) (unknown) (no (unknown) (unknown) Pantoprazole (units (u nknown) date) Sodium 40 mg unknown) 08/01/22 09:00 08/01/22 08:21 (unknown) (no (unknown) (unknown) Patient Location: (units (unknown) date) ICU unknown) (unknown) (no (unknown) (unknown) Patient remains on (units (unknown) date) precedex gtt, CIWA unknown) with benzos (unknown) (no (unknown) (unknown) Patient: (units (unkno wn) date) Sarah Connors R unknown) MR#: M (unknown) (no (unknown) (unknown) Phenobarbital 60 (units (unknown) date) mg 08/01/22 09:00 unknown) 08/01/22 21:26 (unknown) (no (unknown) (unknown) Phenobarbital 65 (units (unknown) date) Mg/Ml Vial IV 60 mg unknown) (unknown) (no (unknown) (unknown) Plan for trial of (units (unknown) date) weaning precedex unknown) tomorrow am (unknown) (no (unknown) (unknown) Plan (units (unkno wn) date) unknown) (unknown) (no (unknown) (unknown) Plt Count 157 (units ( unknown) date) unknown) (unknown) (no (unknown) (unknown) Plt Count (units (unkn own) date) unknown) (unknown) (no (unknown) (unknown) Potassium 3.3 L (units (unknown) date) unknown) (unknown) (no (unknown) (unknown) Potassium (units (unkn own) date) unknown) (unknown) (no (unknown) (unknown) Precedex IV 1 (units ( unknown) date) mcg/kg/hr unknown) (unknown) (no (unknown) (unknown) Precedex gtt, (units ( unknown) date) scheduled unknown) phenobarb, librium (when safe for taking PO meds) (unknown) (no (unknown) (unknown) Protocol (units (unkno wn) date) unknown) (unknown) (no (unknown) (unknown) Provider location (units (unknown) date) (State): [place] unknown) (unknown) (no (unknown) (unknown) Provider: (units (unkn own) date) Uyen Prince MD unknown) (unknown) (no (unknown) (unknown) Pulse Oximetry 97 (units (unknown) date) 100 unknown) (unknown) (no (unknown) (unknown) Pulse Oximetry 97 (units (unknown) date) 98 98 unknown) (unknown) (no (unknown) (unknown) Pulse Rate 55 L 57 (units (unknown) date) L 57 L unknown) (unknown) (no (unknown) (unknown) Pulse Rate 58 L 59 (units (unknown) date) L unknown) (unknown) (no (unknown) (unknown) Pyridoxine 100 (units (unknown) date) Mg/Ml Vial IV Not unknown) Given (unknown) (no (unknown) (unknown) Pyridoxine HCl 100 (units (unknown) date) mg 08/01/22 09:00 unknown) 08/01/22 09:35 (unknown) (no (unknown) (unknown) Q6HR SANDY (units (unkno wn) date) unknown) (unknown) (no (unknown) (unknown) RBC 3.53 L (units (unk nown) date) unknown) (unknown) (no (unknown) (unknown) RBC Morphology See (units (unknown) date) below unknown) (unknown) (no (unknown) (unknown) RBC Morphology (units (unknown) date) unknown) (unknown) (no (unknown) (unknown) RBC (units (unkno wn) date) unknown) (unknown) (no (unknown) (unknown) RDW 20.1 H (units (unk nown) date) unknown) (unknown) (no (unknown) (unknown) RDW (units (unkno wn) date) unknown) (unknown) (no (unknown) (unknown) Remains in ICU for (units (unknown) date) acute alcohol unknown) withdrawal with DT's (unknown) (no (unknown) (unknown) Resp (units (unkno wn) date) unknown) (unknown) (no (unknown) (unknown) Respiratory Rate (units (unknown) date) 17 17 18 unknown) (unknown) (no (unknown) (unknown) Respiratory Rate (units (unknown) date) 18 17 unknown) (unknown) (no (unknown) (unknown) She is asleep this (units (unknown) date) am unknown) (unknown) (no (unknown) (unknown) Signed (units (unkno wn) date) By:<Electronically unknown) signed by Uyen Prince MD> (unknown) (no (unknown) (unknown) Sleeping in bed, (units (unknown) date) no distress unknown) (unknown) (no (unknown) (unknown) Sodium 135 L (units (u nknown) date) unknown) (unknown) (no (unknown) (unknown) Sodium (units (unkno wn) date) unknown) (unknown) (no (unknown) (unknown) Status: Acute (units ( unknown) date) unknown) (unknown) (no (unknown) (unknown) Subjective (units (unk nown) date) unknown) (unknown) (no (unknown) (unknown) TITRATE SANDY 13.494 (units (unknown) date) mls/hr unknown) (unknown) (no (unknown) (unknown) Teleintensivist (units (unknown) date) Progress Note unknown) (unknown) (no (unknown) (unknown) Temperature 98.7 F (units (unknown) date) unknown) (unknown) (no (unknown) (unknown) Temperature (units (un known) date) unknown) (unknown) (no (unknown) (unknown) Thiamine HCl 100 (units (unknown) date) mg/ Sodium 101 mls unknown) @ 404 mls/hr 08/01/22 09:00 08/01/22 (unknown) (no (unknown) (unknown) Time Spent With (units (unknown) date) Patient unknown) (unknown) (no (unknown) (unknown) Time with patient: (units (unknown) date) 30 to 49 minutes unknown) with 50% spent counseling/coordina ting care (unknown) (no (unknown) (unknown) Trade Name Freq (units (unknown) date) PRN Reason Stop unknown) Dose Admin (unknown) (no (unknown) (unknown) VTE, SCDs ordered, (units (unknown) date) but cause extreme unknown) agitation (unknown) (no (unknown) (unknown) Visit Medications (units (unknown) date) (administered) unknown) (unknown) (no (unknown) (unknown) Vital Signs (units (un known) date) unknown) (unknown) (no (unknown) (unknown) Vitamin B12 401 (units (unknown) date) unknown) (unknown) (no (unknown) (unknown) Vitamin B12 (units (un known) date) unknown) (unknown) (no (unknown) (unknown) WBC 5.0 D (units (unkn own) date) unknown) (unknown) (no (unknown) (unknown) WBC (units (unkno wn) date) unknown) (unknown) (no (unknown) (unknown) Will need plan for (units (unknown) date) rehab unknown) (unknown) (no (unknown) (unknown) [Embedded Image (units (unknown) date) Not Available] unknown) (unknown) (no (unknown) (unknown) [Rx Confirmed (units ( unknown) date) 08/01/22] unknown) (unknown) (no (unknown) (unknown) along with (units (unk nown) date) scheduled IV unknown) phenobarb, (unknown) (no (unknown) (unknown) communication: (units (unknown) date) Camera activated unknown) (unknown) (no (unknown) (unknown) dexmedeTOMIDine in (units (unknown) date) 0.9 % NaCL 400 mcg unknown) in 100 mls @ 26.989 mls/hr 08/01/22 (unknown) (no (unknown) (unknown) fluoxetine 10 mg (units (unknown) date) capsule 10 mg PO unknown) DAILY 07/13/22 [History Confirmed 08/01/22] (unknown) (no (unknown) (unknown) gentle hydration (units (unknown) date) unknown) (unknown) (no (unknown) (unknown) hydroxyzine HCl 50 (units (unknown) date) mg tablet 50 mg PO unknown) DAILY 07/13/22 [History Confirmed (unknown) (no (unknown) (unknown) librium, though (units (unknown) date) not given currently unknown) as not safe for PO meds (unknown) (no (unknown) (unknown) lovenox ordered (units (unknown) date) instead for DVT ppx unknown) (unknown) (no (unknown) (unknown) management (units (unk nown) date) unknown) (unknown) (no (unknown) (unknown) multivitamin with (units (unknown) date) folic acid 400 mcg unknown) tablet (Tab-A-Kael) 1 tab PO DAILY #30 tabs (unknown) (no (unknown) (unknown) no apparent (units (un known) date) distress unknown) (unknown) (no (unknown) (unknown) pantoprazole 40 mg (units (unknown) date) tablet,delayed unknown) release 40 mg PO 0700 #30 tabs 07/14/22 [Rx (unknown) (no (unknown) (unknown) quetiapine 300 mg (units (unknown) date) tablet 300 mg PO unknown) DAILY 07/13/22 [History Confirmed 08/01/22] (unknown) (no (unknown) (unknown) replace K (units (unkn own) date) unknown) (unknown) (no (unknown) (unknown) restart fluoxetine (units (unknown) date) when taking PO unknown) (unknown) (no (unknown) (unknown) thiamine (units (unkno wn) date) mononitrate (vit unknown) B1) 100 mg tablet 100 mg PO DAILY #30 tabs 07/14/22 Result panel 2430 (unknown) (no (unknown) (unknown) (no value) (units (unk nown) date) unknown) (unknown) (no (unknown) (unknown) # GERD (units (unkno wn) date) unknown) (unknown) (no (unknown) (unknown) # acute alcohol (units (unknown) date) withdrawal with unknown) delirium tremens (unknown) (no (unknown) (unknown) # depression and (units (unknown) date) anxiety unknown) (unknown) (no (unknown) (unknown) # normocytic (units (u nknown) date) anemia unknown) (unknown) (no (unknown) (unknown) # 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, barbiturates, and alcohol (unknown) (no (unknown) (unknown) (past 8 hours): (units (unknown) date) unknown) (unknown) (no (unknown) (unknown) -B12/folate normal (units (unknown) date) unknown) (unknown) (no (unknown) (unknown) -CIWA protocol (units (unknown) date) with Ativan, unknown) phenobarbital 60 mg IV b.i.d., Librium 50 q.6 hours (unknown) (no (unknown) (unknown) -MV, thiamine and (units (unknown) date) B6 daily unknown) (unknown) (no (unknown) (unknown) -appears to be (units (unknown) date) chronic unknown) (unknown) (no (unknown) (unknown) -appreciate (units (un known) date) tele-ICU unknown) consultation (unknown) (no (unknown) (unknown) -continue PPI (units ( unknown) date) unknown) (unknown) (no (unknown) (unknown) -continue Precedex (units (unknown) date) drip until and unknown) benzos and barbiturates can take effect (unknown) (no (unknown) (unknown) -continue home (units (unknown) date) Prozac when able to unknown) take po (unknown) (no (unknown) (unknown) -no evidence of (units (unknown) date) bleeding unknown) (unknown) (no (unknown) (unknown) -patient states (units (unknown) date) last drink 5 days unknown) ago, but unclear if true given current (unknown) (no (unknown) (unknown) -patient very (units ( unknown) date) agitated in ED and unknown) required precedex drip (unknown) (no (unknown) (unknown) -should improve as (units (unknown) date) withdrawals improve unknown) (unknown) (no (unknown) (unknown) [id number] (units (unkn own) date) unknown) (unknown) (no (unknown) (unknown) 00:00 08/02/22 (units (unknown) date) unknown) (unknown) (no (unknown) (unknown) 01:00 08/02/22 (units (unknown) date) unknown) (unknown) (no (unknown) (unknown) 01:00 (units (unkno wn) date) unknown) (unknown) (no (unknown) (unknown) 02:00 08/02/22 (units (unknown) date) unknown) (unknown) (no (unknown) (unknown) 08/01/22 08/01/22 (units (unknown) date) 08/01/22 unknown) (unknown) (no (unknown) (unknown) 08/01/22 08/01/22 (units (unknown) date) 08/02/22 unknown) (unknown) (no (unknown) (unknown) 08/02/22 03:48 (units (unknown) date) unknown) (unknown) (no (unknown) (unknown) 08/02/22 1134 (units ( unknown) date) unknown) (unknown) (no (unknown) (unknown) 08/02/22 (units (unkno wn) date) unknown) (unknown) (no (unknown) (unknown) 03:00 08/02/22 (units (unknown) date) unknown) (unknown) (no (unknown) (unknown) 03:48 (units (unkno wn) date) unknown) (unknown) (no (unknown) (unknown) 04:00 (units (unkno wn) date) unknown) (unknown) (no (unknown) (unknown) 05:00 08/02/22 (units (unknown) date) unknown) (unknown) (no (unknown) (unknown) 05:10 05:10 05:10 (units (unknown) date) unknown) (unknown) (no (unknown) (unknown) 06:00 (units (unkno wn) date) unknown) (unknown) (no (unknown) (unknown) 06:35 08/02/22 (units (unknown) date) unknown) (unknown) (no (unknown) (unknown) 08:05 09:25 03:48 (units (unknown) date) unknown) (unknown) (no (unknown) (unknown) ABD: soft, (units (unk nown) date) nontender, unknown) nondistended, no organomegaly (unknown) (no (unknown) (unknown) Age/Sex: 31 / F (units (unknown) date) unknown) (unknown) (no (unknown) (unknown) Alcohol withdrawal (units (unknown) date) delirium, acute, unknown) hyperactive (unknown) (no (unknown) (unknown) Alcoholism (units (unk nown) date) unknown) (unknown) (no (unknown) (unknown) Anemia (-2018) (units (unknown) date) unknown) (unknown) (no (unknown) (unknown) Anisocytosis 1+ H (units (unknown) date) unknown) (unknown) (no (unknown) (unknown) Anisocytosis (units (u nknown) date) unknown) (unknown) (no (unknown) (unknown) Assessment + Plan (units (unknown) date) narrative: unknown) (unknown) (no (unknown) (unknown) Assessment + Plan (units (unknown) date) unknown) (unknown) (no (unknown) (unknown) BUN 5 L (units (unkno wn) date) unknown) (unknown) (no (unknown) (unknown) BUN (units (unkno wn) date) unknown) (unknown) (no (unknown) (unknown) BUN/Creatinine (units (unknown) date) Ratio 9.3 unknown) (unknown) (no (unknown) (unknown) BUN/Creatinine (units (unknown) date) Ratio unknown) (unknown) (no (unknown) (unknown) Baso # (Auto) 0 (units (unknown) date) unknown) (unknown) (no (unknown) (unknown) Baso # (Auto) (units ( unknown) date) unknown) (unknown) (no (unknown) (unknown) Baso % (Auto) 0.8 (units (unknown) date) unknown) (unknown) (no (unknown) (unknown) Baso % (Auto) (units ( unknown) date) unknown) (unknown) (no (unknown) (unknown) Blood Pressure (units (unknown) date) 115/77 123/76 unknown) 119/77 (unknown) (no (unknown) (unknown) Blood Pressure (units (unknown) date) 118/74 112/81 unknown) (unknown) (no (unknown) (unknown) Blood Pressure (units (unknown) date) 124/75 unknown) (unknown) (no (unknown) (unknown) COVID negative. (units (unknown) date) unknown) (unknown) (no (unknown) (unknown) CV: regular rate (units (unknown) date) and rhythm, no unknown) murmurs (unknown) (no (unknown) (unknown) Calcium 7.9 L (units ( unknown) date) unknown) (unknown) (no (unknown) (unknown) Calcium (units (unkno wn) date) unknown) (unknown) (no (unknown) (unknown) Carbon Dioxide 24 (units (unknown) date) unknown) (unknown) (no (unknown) (unknown) Carbon Dioxide (units (unknown) date) unknown) (unknown) (no (unknown) (unknown) Chloride 105 (units (u nknown) date) unknown) (unknown) (no (unknown) (unknown) Chloride (units (unkno wn) date) unknown) (unknown) (no (unknown) (unknown) Code status is (units (unknown) date) full code. unknown) (unknown) (no (unknown) (unknown) Creatinine 0.54 (units (unknown) date) unknown) (unknown) (no (unknown) (unknown) Creatinine (units (unk nown) date) unknown) (unknown) (no (unknown) (unknown) : 1990 (units (unknown) date) Acct:[id number] unknown) (unknown) (no (unknown) (unknown) DVT prophylaxis (units (unknown) date) with SCDs. unknown) (unknown) (no (unknown) (unknown) Date of Service: (units (unknown) date) 08/01/22 unknown) (unknown) (no (unknown) (unknown) Dispo: ICU (units (unk nown) date) unknown) (unknown) (no (unknown) (unknown) EXT: warm and well (units (unknown) date) perfused with no unknown) edema (unknown) (no (unknown) (unknown) Eos # (Auto) 100 (units (unknown) date) unknown) (unknown) (no (unknown) (unknown) Eos # (Auto) (units (u nknown) date) unknown) (unknown) (no (unknown) (unknown) Eos % (Auto) 2.9 (units (unknown) date) unknown) (unknown) (no (unknown) (unknown) Eos % (Auto) (units (u nknown) date) unknown) (unknown) (no (unknown) (unknown) Estimated GFR > 60 (units (unknown) date) unknown) (unknown) (no (unknown) (unknown) Estimated GFR (units ( unknown) date) unknown) (unknown) (no (unknown) (unknown) Exam Narrative: (units (unknown) date) unknown) (unknown) (no (unknown) (unknown) Exam (units (unkno wn) date) unknown) (unknown) (no (unknown) (unknown) Family History (units (unknown) date) (Reviewed 08/01/22 unknown) @ 06:02 by Reinaldo Arthur DO) (unknown) (no (unknown) (unknown) Family/Other (units (u nknown) date) Alcoholism unknown) (unknown) (no (unknown) (unknown) Family/Other (units (u nknown) date) Diabetes mellitus unknown) (unknown) (no (unknown) (unknown) Father Alcoholism (units (unknown) date) unknown) (unknown) (no (unknown) (unknown) Folate 11.9 (units (un known) date) unknown) (unknown) (no (unknown) (unknown) Folate (units (unkno wn) date) unknown) (unknown) (no (unknown) (unknown) Free T4 1.13 (units (u nknown) date) unknown) (unknown) (no (unknown) (unknown) Free T4 (units (unkno wn) date) unknown) (unknown) (no (unknown) (unknown) GEN: no acute (units ( unknown) date) distress, sleeping unknown) (unknown) (no (unknown) (unknown) Glucose 122 H (units ( unknown) date) unknown) (unknown) (no (unknown) (unknown) Glucose (units (unkno wn) date) unknown) (unknown) (no [...] extraction (-2013) unknown) (unknown) (no (unknown) (unknown) HEENT: moist (units (u nknown) date) mucous membranes, unknown) PERRL (unknown) (no (unknown) (unknown) Hct 28.6 L (units (unk nown) date) unknown) (unknown) (no (unknown) (unknown) Hct (units (unkno wn) date) unknown) (unknown) (no (unknown) (unknown) Hgb 9.4 L (units (unkn own) date) unknown) (unknown) (no (unknown) (unknown) Hgb (units (unkno wn) date) unknown) (unknown) (no (unknown) (unknown) I have reviewed (units (unknown) date) home meds and used unknown) all available resources to reconcile the home (unknown) (no (unknown) (unknown) I spent a total of (units (unknown) date) 35 minutes of unknown) critical care time on this patient's care (unknown) (no (unknown) (unknown) Insomnia (units (unkno wn) date) unknown) (unknown) (no (unknown) (unknown) Interval history: (units (unknown) date) unknown) (unknown) (no (unknown) (unknown) [facility] (units (unknown) date) [address] unknown) [place] [address] (unknown) (no (unknown) (unknown) Laboratory Results (units (unknown) date) - last 24 hr unknown) (unknown) (no (unknown) (unknown) Labs (units (unkno wn) date) unknown) (unknown) (no (unknown) (unknown) Labs: (units (unkno wn) date) unknown) (unknown) (no (unknown) (unknown) Lymph # (Auto) (units (unknown) date) 1200 unknown) (unknown) (no (unknown) (unknown) Lymph # (Auto) (units (unknown) date) unknown) (unknown) (no (unknown) (unknown) Lymph % (Auto) (units (unknown) date) 24.0 L unknown) (unknown) (no (unknown) (unknown) Lymph % (Auto) (units (unknown) date) unknown) (unknown) (no (unknown) (unknown) MCH 26.6 (units (unkno wn) date) unknown) (unknown) (no (unknown) (unknown) MCH (units (unkno wn) date) unknown) (unknown) (no (unknown) (unknown) MCHC 32.8 (units (unkn own) date) unknown) (unknown) (no (unknown) (unknown) MCHC (units (unkno wn) date) unknown) (unknown) (no (unknown) (unknown) MCV 81.1 (units (unkno wn) date) unknown) (unknown) (no (unknown) (unknown) MCV (units (unkno wn) date) unknown) (unknown) (no (unknown) (unknown) Magnesium 2.0 (units ( unknown) date) unknown) (unknown) (no (unknown) (unknown) Magnesium (units (unkn own) date) unknown) (unknown) (no (unknown) (unknown) Medical History (units (unknown) date) (Reviewed 08/01/22 unknown) @ 06:02 by Reinaldo Arthur DO) (unknown) (no (unknown) (unknown) Menometrorrhagia (units (unknown) date) unknown) (unknown) (no (unknown) (unknown) Yates # (Auto) 200 (units (unknown) date) unknown) (unknown) (no (unknown) (unknown) Yates # (Auto) (units ( unknown) date) unknown) (unknown) (no (unknown) (unknown) Yates % (Auto) 5.0 (units (unknown) date) unknown) (unknown) (no (unknown) (unknown) Yates % (Auto) (units ( unknown) date) unknown) (unknown) (no (unknown) (unknown) Mother Diabetes (units (unknown) date) mellitus unknown) (unknown) (no (unknown) (unknown) NECK: trachea (units ( unknown) date) midline, no JVD unknown) (unknown) (no (unknown) (unknown) NEURO: no focal (units (unknown) date) deficits unknown) (unknown) (no (unknown) (unknown) Narrative (units (unkn own) date) unknown) (unknown) (no (unknown) (unknown) Nasal Screen MRSA (units (unknown) date) (PCR) Not detected unknown) (unknown) (no (unknown) (unknown) Nasal Screen MRSA (units (unknown) date) (PCR) unknown) (unknown) (no (unknown) (unknown) Neut # (Auto) 3400 (units (unknown) date) unknown) (unknown) (no (unknown) (unknown) Neut # (Auto) (units ( unknown) date) unknown) (unknown) (no (unknown) (unknown) Neut % (Auto) 67.3 (units (unknown) date) unknown) (unknown) (no (unknown) (unknown) Neut % (Auto) (units ( unknown) date) unknown) (unknown) (no (unknown) (unknown) Obesity (units (unkno wn) date) unknown) (unknown) (no (unknown) (unknown) Objective (units (unkn own) date) unknown) (unknown) (no (unknown) (unknown) Overweight (units (unk nown) date) unknown) (unknown) (no (unknown) (unknown) Oxygen Delivery (units (unknown) date) Method Room Air unknown) (unknown) (no (unknown) (unknown) Oxygen Delivery (units (unknown) date) Method unknown) (unknown) (no (unknown) (unknown) Oxygen Flow Rate 0 (units (unknown) date) unknown) (unknown) (no (unknown) (unknown) PFSH (units (unkno wn) date) unknown) (unknown) (no (unknown) (unknown) PULM: clear (units (un known) date) bilaterally unknown) (unknown) (no (unknown) (unknown) Patient remains on (units (unknown) date) precedex drip. unknown) Sleeping currently. (unknown) (no (unknown) (unknown) Patient: (units (unkno wn) date) Sarah Connors R unknown) MR#: M (unknown) (no (unknown) (unknown) Plt Count 157 (units ( unknown) date) unknown) (unknown) (no (unknown) (unknown) Plt Count (units (unkn own) date) unknown) (unknown) (no (unknown) (unknown) Potassium 3.3 L (units (unknown) date) unknown) (unknown) (no (unknown) (unknown) Potassium (units (unkn own) date) unknown) (unknown) (no (unknown) (unknown) Progress Note (units ( unknown) date) unknown) (unknown) (no (unknown) (unknown) Provider: (units (unkn own) date) Jabari Sena unknown) D.O. (unknown) (no (unknown) (unknown) Proxy is spouse (units (unknown) date) Rober. unknown) (unknown) (no (unknown) (unknown) Pulse Oximetry 97 (units (unknown) date) 100 unknown) (unknown) (no (unknown) (unknown) Pulse Oximetry 97 (units (unknown) date) 98 98 unknown) (unknown) (no (unknown) (unknown) Pulse Oximetry 98 (units (unknown) date) 98 unknown) (unknown) (no (unknown) (unknown) Pulse Rate 49 L 52 (units (unknown) date) L unknown) (unknown) (no (unknown) (unknown) Pulse Rate 55 L 57 (units (unknown) date) L 57 L unknown) (unknown) (no (unknown) (unknown) Pulse Rate 58 L 59 (units (unknown) date) L unknown) (unknown) (no (unknown) (unknown) RBC 3.53 L (units (unk nown) date) unknown) (unknown) (no (unknown) (unknown) RBC Morphology See (units (unknown) date) below unknown) (unknown) (no (unknown) (unknown) RBC Morphology (units (unknown) date) unknown) (unknown) (no (unknown) (unknown) RBC (units (unkno wn) date) unknown) (unknown) (no (unknown) (unknown) RDW 20.1 H (units (unk nown) date) unknown) (unknown) (no (unknown) (unknown) RDW (units (unkno wn) date) unknown) (unknown) (no (unknown) (unknown) Respiratory Rate (units (unknown) date) 17 17 18 unknown) (unknown) (no (unknown) (unknown) Respiratory Rate (units (unknown) date) 18 13 unknown) (unknown) (no (unknown) (unknown) Respiratory Rate (units (unknown) date) 18 17 unknown) (unknown) (no (unknown) (unknown) S/P myringotomy (units (unknown) date) with insertion of unknown) tube (unknown) (no (unknown) (unknown) SARS-CoV-2 (PCR) (units (unknown) date) Negative unknown) (unknown) (no (unknown) (unknown) SARS-CoV-2 (PCR) (units (unknown) date) unknown) (unknown) (no (unknown) (unknown) (spontaneous (units (unknown) date) vaginal delivery) unknown) (-09/05/18) (unknown) (no (unknown) (unknown) Signed (units (unkno wn) date) By:<Electronically unknown) signed by Jabari Sena D.O.> (unknown) (no (unknown) (unknown) Smoker (units (unkno wn) date) unknown) (unknown) (no (unknown) (unknown) Smoking Status: (units (unknown) date) Former smoker unknown) (unknown) (no (unknown) (unknown) Social History (units (unknown) date) (Reviewed 08/01/22 unknown) @ 06:02 by Reinaldo Arthur DO) (unknown) (no (unknown) (unknown) Sodium 135 L (units (u nknown) date) unknown) (unknown) (no (unknown) (unknown) Sodium (units (unkno wn) date) unknown) (unknown) (no (unknown) (unknown) Subjective (units (unk nown) date) unknown) (unknown) (no (unknown) (unknown) Surgical History (units (unknown) date) (Reviewed 08/01/22 unknown) @ 06:02 by Reinaldo Arthur DO) (unknown) (no (unknown) (unknown) TCA's. EtOH (units (un known) date) negative. unknown) (unknown) (no (unknown) (unknown) TSH 4.71 H (units (unk nown) date) unknown) (unknown) (no (unknown) (unknown) TSH (units (unkno wn) date) unknown) (unknown) (no (unknown) (unknown) Temperature 98.5 F (units (unknown) date) unknown) (unknown) (no (unknown) (unknown) Temperature 98.7 F (units (unknown) date) unknown) (unknown) (no (unknown) (unknown) Temperature (units (un known) date) unknown) (unknown) (no (unknown) (unknown) Vital Signs (units (un known) date) unknown) (unknown) (no (unknown) (unknown) Vitamin B12 401 (units (unknown) date) unknown) (unknown) (no (unknown) (unknown) Vitamin B12 (units (un known) date) unknown) (unknown) (no (unknown) (unknown) WBC 5.0 D (units (unkn own) date) unknown) (unknown) (no (unknown) (unknown) WBC (units (unkno wn) date) unknown) (unknown) (no (unknown) (unknown) [Embedded Image (units (unknown) date) Not Available] unknown) (unknown) (no (unknown) (unknown) alcohol intake: (units (unknown) date) current unknown) (unknown) (no (unknown) (unknown) current (units (unkno wn) date) occupational unknown) exposures/hazards: Yes (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 with Pandemic ) (unknown) (no (unknown) (unknown) education level: (units (unknown) date) college unknown) (unknown) (no (unknown) (unknown) renee/zoroastrianism: (units (unknown) date) Buddhist unknown) (unknown) (no (unknown) (unknown) household members: (units (unknown) date) significant other unknown) (unknown) (no (unknown) (unknown) marital status: (units (unknown) date) unknown) (unknown) (no (unknown) (unknown) meds. (units (unkno wn) date) unknown) (unknown) (no (unknown) (unknown) number of (units (unkn own) date) children: 1 unknown) (unknown) (no (unknown) (unknown) occupational (units (u nknown) date) status: employed unknown) (unknown) (no (unknown) (unknown) second hand (units (un known) date) exposure: No unknown) (growing up as a child - not currently) (unknown) (no (unknown) (unknown) special renee (units ( unknown) date) needs: No unknown) (unknown) (no (unknown) (unknown) substance use (units ( unknown) date) type: does not use unknown) (unknown) (no (unknown) (unknown) today; this time (units (unknown) date) is exclusive of unknown) procedural time. (unknown) (no (unknown) (unknown) when able to take (units (unknown) date) oral meds unknown) (unknown) (no (unknown) (unknown) withdrawal (units (unk nown) date) unknown) (unknown) (no (unknown) (unknown) withdrawals (units (unk nown) date) symptoms would like unknown) be out of window. UDS positive benzos, barbs and Result panel [id number] (unknown) (no (unknown) (unknown) (no value) (units (unk nown) date) unknown) (unknown) (no (unknown) (unknown) # GERD (units (unkno wn) date) unknown) (unknown) (no (unknown) (unknown) # acute alcohol (units (unknown) date) withdrawal with unknown) delirium tremens (unknown) (no (unknown) (unknown) # depression and (units (unknown) date) anxiety unknown) (unknown) (no (unknown) (unknown) # normocytic (units (u nknown) date) anemia unknown) (unknown) (no (unknown) (unknown) # 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, barbiturates, and alcohol (unknown) (no (unknown) (unknown) (past 8 hours): (units (unknown) date) unknown) (unknown) (no (unknown) (unknown) ADDENDUM (units (u nknown) date) unknown) (unknown) (no (unknown) (unknown) -B12/folate normal (units (unknown) date) unknown) (unknown) (no (unknown) (unknown) -CIWA protocol (units (unknown) date) with Ativan, unknown) phenobarbital 60 mg IV b.i.d., Librium 50 q.6 hours (unknown) (no (unknown) (unknown) -MV, thiamine and (units (unknown) date) B6 daily unknown) (unknown) (no (unknown) (unknown) -appears to be (units (unknown) date) chronic unknown) (unknown) (no (unknown) (unknown) -appreciate (units (un known) date) tele-ICU unknown) consultation (unknown) (no (unknown) (unknown) -continue PPI (units ( unknown) date) unknown) (unknown) (no (unknown) (unknown) -continue Precedex (units (unknown) date) drip until and unknown) benzos and barbiturates can take effect (unknown) (no (unknown) (unknown) -continue home (units (unknown) date) Prozac when able to unknown) take po (unknown) (no (unknown) (unknown) -no evidence of (units (unknown) date) bleeding unknown) (unknown) (no (unknown) (unknown) -patient states (units (unknown) date) last drink 5 days unknown) ago, but unclear if true given current (unknown) (no (unknown) (unknown) -patient very (units ( unknown) date) agitated in ED and unknown) required precedex drip (unknown) (no (unknown) (unknown) -should improve as (units (unknown) date) withdrawals improve unknown) (unknown) (no (unknown) (unknown) [id number] (units (unkn own) date) unknown) (unknown) (no (unknown) (unknown) 00:00 08/02/22 (units (unknown) date) unknown) (unknown) (no (unknown) (unknown) 01:00 08/02/22 (units (unknown) date) unknown) (unknown) (no (unknown) (unknown) 01:00 (units (unkno wn) date) unknown) (unknown) (no (unknown) (unknown) 02:00 08/02/22 (units (unknown) date) unknown) (unknown) (no (unknown) (unknown) 08/01/22 08/01/22 (units (unknown) date) 08/01/22 unknown) (unknown) (no (unknown) (unknown) 08/01/22 08/01/22 (units (unknown) date) 08/02/22 unknown) (unknown) (no (unknown) (unknown) 08/02/22 03:48 (units (unknown) date) unknown) (unknown) (no (unknown) (unknown) 08/02/22 1134 (units ( unknown) date) unknown) (unknown) (no (unknown) (unknown) 08/02/22 1207 (units ( unknown) date) unknown) (unknown) (no (unknown) (unknown) 08/02/22 (units (unkno wn) date) unknown) (unknown) (no (unknown) (unknown) 03:00 08/02/22 (units (unknown) date) unknown) (unknown) (no (unknown) (unknown) 03:48 (units (unkno wn) date) unknown) (unknown) (no (unknown) (unknown) 04:00 (units (unkno wn) date) unknown) (unknown) (no (unknown) (unknown) 05:00 08/02/22 (units (unknown) date) unknown) (unknown) (no (unknown) (unknown) 05:10 05:10 05:10 (units (unknown) date) unknown) (unknown) (no (unknown) (unknown) 06:00 (units (unkno wn) date) unknown) (unknown) (no (unknown) (unknown) 06:35 08/02/22 (units (unknown) date) unknown) (unknown) (no (unknown) (unknown) 08:05 09:25 03:48 (units (unknown) date) unknown) (unknown) (no (unknown) (unknown) ABD: soft, (units (unk nown) date) nontender, unknown) nondistended, no organomegaly (unknown) (no (unknown) (unknown) Acute on chronic (units (unknown) date) moderate protein unknown) calorie malnutrition r/t excessive ETOH aeb (unknown) (no (unknown) (unknown) Addendum (units (unkno wn) date) Documented By: unknown) Cayden HernandezOForest (unknown) (no (unknown) (unknown) Addendum Signed (units (unknown) date) By: <Electronically unknown) signed by Jabari Sena, (unknown) (no (unknown) (unknown) Age/Sex: 31 / F (units (unknown) date) unknown) (unknown) (no (unknown) (unknown) Alcohol withdrawal (units (unknown) date) delirium, acute, unknown) hyperactive (unknown) (no (unknown) (unknown) Alcoholism (units (unk nown) date) unknown) (unknown) (no (unknown) (unknown) Anemia (-2018) (units (unknown) date) unknown) (unknown) (no (unknown) (unknown) Anisocytosis 1+ H (units (unknown) date) unknown) (unknown) (no (unknown) (unknown) Anisocytosis (units (u nknown) date) unknown) (unknown) (no (unknown) (unknown) Assessment + Plan (units (unknown) date) narrative: unknown) (unknown) (no (unknown) (unknown) Assessment + Plan (units (unknown) date) unknown) (unknown) (no (unknown) (unknown) BUN 5 L (units (unkno wn) date) unknown) (unknown) (no (unknown) (unknown) BUN (units (unkno wn) date) unknown) (unknown) (no (unknown) (unknown) BUN/Creatinine (units (unknown) date) Ratio 9.3 unknown) (unknown) (no (unknown) (unknown) BUN/Creatinine (units (unknown) date) Ratio unknown) (unknown) (no (unknown) (unknown) Baso # (Auto) 0 (units (unknown) date) unknown) (unknown) (no (unknown) (unknown) Baso # (Auto) (units ( unknown) date) unknown) (unknown) (no (unknown) (unknown) Baso % (Auto) 0.8 (units (unknown) date) unknown) (unknown) (no (unknown) (unknown) Baso % (Auto) (units ( unknown) date) unknown) (unknown) (no (unknown) (unknown) Blood Pressure (units (unknown) date) 115/77 123/76 unknown) 119/77 (unknown) (no (unknown) (unknown) Blood Pressure (units (unknown) date) 118/74 112/81 unknown) (unknown) (no (unknown) (unknown) Blood Pressure (units (unknown) date) 124/75 unknown) (unknown) (no (unknown) (unknown) COVID negative. (units (unknown) date) unknown) (unknown) (no (unknown) (unknown) CV: regular rate (units (unknown) date) and rhythm, no unknown) murmurs (unknown) (no (unknown) (unknown) Calcium 7.9 L (units ( unknown) date) unknown) (unknown) (no (unknown) (unknown) Calcium (units (unkno wn) date) unknown) (unknown) (no (unknown) (unknown) Carbon Dioxide 24 (units (unknown) date) unknown) (unknown) (no (unknown) (unknown) Carbon Dioxide (units (unknown) date) unknown) (unknown) (no (unknown) (unknown) Chloride 105 (units (u nknown) date) unknown) (unknown) (no (unknown) (unknown) Chloride (units (unkno wn) date) unknown) (unknown) (no (unknown) (unknown) Code status is (units (unknown) date) full code. unknown) (unknown) (no (unknown) (unknown) Creatinine 0.54 (units (unknown) date) unknown) (unknown) (no (unknown) (unknown) Creatinine (units (unk nown) date) unknown) (unknown) (no (unknown) (unknown) D.O.> 08/02/22 (units (unknown) date) 1207 unknown) (unknown) (no (unknown) (unknown) : 1990 (units (unknown) date) Acct:[id number] unknown) (unknown) (no (unknown) (unknown) DVT prophylaxis (units (unknown) date) with SCDs. unknown) (unknown) (no (unknown) (unknown) Date of Service: (units (unknown) date) 08/01/22 unknown) (unknown) (no (unknown) (unknown) Dispo: ICU (units (unk nown) date) unknown) (unknown) (no (unknown) (unknown) EXT: warm and well (units (unknown) date) perfused with no unknown) edema (unknown) (no (unknown) (unknown) Eos # (Auto) 100 (units (unknown) date) unknown) (unknown) (no (unknown) (unknown) Eos # (Auto) (units (u nknown) date) unknown) (unknown) (no (unknown) (unknown) Eos % (Auto) 2.9 (units (unknown) date) unknown) (unknown) (no (unknown) (unknown) Eos % (Auto) (units (u nknown) date) unknown) (unknown) (no (unknown) (unknown) Estimated GFR > 60 (units (unknown) date) unknown) (unknown) (no (unknown) (unknown) Estimated GFR (units ( unknown) date) unknown) (unknown) (no (unknown) (unknown) Exam Narrative: (units (unknown) date) unknown) (unknown) (no (unknown) (unknown) Exam (units (unkno wn) date) unknown) (unknown) (no (unknown) (unknown) Family History (units (unknown) date) (Reviewed 08/01/22 unknown) @ 06:02 by Reinaldo Arthur DO) (unknown) (no (unknown) (unknown) Family/Other (units (u nknown) date) Alcoholism unknown) (unknown) (no (unknown) (unknown) Family/Other (units (u nknown) date) Diabetes mellitus unknown) (unknown) (no (unknown) (unknown) Father Alcoholism (units (unknown) date) unknown) (unknown) (no (unknown) (unknown) Folate 11.9 (units (un known) date) unknown) (unknown) (no (unknown) (unknown) Folate (units (unkno wn) date) unknown) (unknown) (no (unknown) (unknown) Free T4 1.13 (units (u nknown) date) unknown) (unknown) (no (unknown) (unknown) Free T4 (units (unkno wn) date) unknown) (unknown) (no (unknown) (unknown) GEN: no acute (units ( unknown) date) distress, sleeping unknown) (unknown) (no (unknown) (unknown) Glucose 122 H (units ( unknown) date) unknown) (unknown) (no (unknown) (unknown) Glucose (units (unkno wn) date) unknown) (unknown) (no [...] extraction () unknown) (unknown) (no (unknown) (unknown) HEENT: moist (units (u nknown) date) mucous membranes, unknown) PERRL (unknown) (no (unknown) (unknown) Hct 28.6 L (units (unk nown) date) unknown) (unknown) (no (unknown) (unknown) Hct (units (unkno wn) date) unknown) (unknown) (no (unknown) (unknown) Hgb 9.4 L (units (unkn own) date) unknown) (unknown) (no (unknown) (unknown) Hgb (units (unkno wn) date) unknown) (unknown) (no (unknown) (unknown) I have reviewed (units (unknown) date) home meds and used unknown) all available resources to reconcile the home (unknown) (no (unknown) (unknown) I spent a total of (units (unknown) date) 35 minutes of unknown) critical care time on this patient's care (unknown) (no (unknown) (unknown) Insomnia (units (unkno wn) date) unknown) (unknown) (no (unknown) (unknown) Interval history: (units (unknown) date) unknown) (unknown) (no (unknown) (unknown) [facility] (units (unknown) date) [address] [place] [address] unknown) [place] [address] (unknown) (no (unknown) (unknown) Laboratory Results (units (unknown) date) - last 24 hr unknown) (unknown) (no (unknown) (unknown) Labs (units (unkno wn) date) unknown) (unknown) (no (unknown) (unknown) Labs: (units (unkno wn) date) unknown) (unknown) (no (unknown) (unknown) Lymph # (Auto) (units (unknown) date) 1200 unknown) (unknown) (no (unknown) (unknown) Lymph # (Auto) (units (unknown) date) unknown) (unknown) (no (unknown) (unknown) Lymph % (Auto) (units (unknown) date) 24.0 L unknown) (unknown) (no (unknown) (unknown) Lymph % (Auto) (units (unknown) date) unknown) (unknown) (no (unknown) (unknown) MCH 26.6 (units (unkno wn) date) unknown) (unknown) (no (unknown) (unknown) MCH (units (unkno wn) date) unknown) (unknown) (no (unknown) (unknown) MCHC 32.8 (units (unkn own) date) unknown) (unknown) (no (unknown) (unknown) MCHC (units (unkno wn) date) unknown) (unknown) (no (unknown) (unknown) MCV 81.1 (units (unkno wn) date) unknown) (unknown) (no (unknown) (unknown) MCV (units (unkno wn) date) unknown) (unknown) (no (unknown) (unknown) Magnesium 2.0 (units ( unknown) date) unknown) (unknown) (no (unknown) (unknown) Magnesium (units (unkn own) date) unknown) (unknown) (no (unknown) (unknown) Medical History (units (unknown) date) (Reviewed 08/01/22 unknown) @ 06:02 by Reinaldo Arthur DO) (unknown) (no (unknown) (unknown) Menometrorrhagia (units (unknown) date) unknown) (unknown) (no (unknown) (unknown) Yates # (Auto) 200 (units (unknown) date) unknown) (unknown) (no (unknown) (unknown) Yates # (Auto) (units ( unknown) date) unknown) (unknown) (no (unknown) (unknown) Yates % (Auto) 5.0 (units (unknown) date) unknown) (unknown) (no (unknown) (unknown) Yates % (Auto) (units ( unknown) date) unknown) (unknown) (no (unknown) (unknown) Mother Diabetes (units (unknown) date) mellitus unknown) (unknown) (no (unknown) (unknown) NECK: trachea (units ( unknown) date) midline, no JVD unknown) (unknown) (no (unknown) (unknown) NEURO: no focal (units (unknown) date) deficits unknown) (unknown) (no (unknown) (unknown) Narrative (units (unkn own) date) unknown) (unknown) (no (unknown) (unknown) Nasal Screen MRSA (units (unknown) date) (PCR) Not detected unknown) (unknown) (no (unknown) (unknown) Nasal Screen MRSA (units (unknown) date) (PCR) unknown) (unknown) (no (unknown) (unknown) Neut # (Auto) 3400 (units (unknown) date) unknown) (unknown) (no (unknown) (unknown) Neut # (Auto) (units ( unknown) date) unknown) (unknown) (no (unknown) (unknown) Neut % (Auto) 67.3 (units (unknown) date) unknown) (unknown) (no (unknown) (unknown) Neut % (Auto) (units ( unknown) date) unknown) (unknown) (no (unknown) (unknown) Obesity (units (unkno wn) date) unknown) (unknown) (no (unknown) (unknown) Objective (units (unkn own) date) unknown) (unknown) (no (unknown) (unknown) Overweight (units (unk nown) date) unknown) (unknown) (no (unknown) (unknown) Oxygen Delivery (units (unknown) date) Method Room Air unknown) (unknown) (no (unknown) (unknown) Oxygen Delivery (units (unknown) date) Method unknown) (unknown) (no (unknown) (unknown) Oxygen Flow Rate 0 (units (unknown) date) unknown) (unknown) (no (unknown) (unknown) PFSH (units (unkno wn) date) unknown) (unknown) (no (unknown) (unknown) PULM: clear (units (un known) date) bilaterally unknown) (unknown) (no (unknown) (unknown) Patient remains on (units (unknown) date) precedex drip. unknown) Sleeping currently. (unknown) (no (unknown) (unknown) Patient: (units (unkno wn) date) Sarah Connors R unknown) MR#: M (unknown) (no (unknown) (unknown) Plt Count 157 (units ( unknown) date) unknown) (unknown) (no (unknown) (unknown) Plt Count (units (unkn own) date) unknown) (unknown) (no (unknown) (unknown) Potassium 3.3 L (units (unknown) date) unknown) (unknown) (no (unknown) (unknown) Potassium (units (unkn own) date) unknown) (unknown) (no (unknown) (unknown) Progress Note (units ( unknown) date) unknown) (unknown) (no (unknown) (unknown) Provider: (units (unkn own) date) Jabari Sena unknown) D.O. (unknown) (no (unknown) (unknown) Proxy is spouse (units (unknown) date) Rober. unknown) (unknown) (no (unknown) (unknown) Pulse Oximetry 97 (units (unknown) date) 100 unknown) (unknown) (no (unknown) (unknown) Pulse Oximetry 97 (units (unknown) date) 98 98 unknown) (unknown) (no (unknown) (unknown) Pulse Oximetry 98 (units (unknown) date) 98 unknown) (unknown) (no (unknown) (unknown) Pulse Rate 49 L 52 (units (unknown) date) L unknown) (unknown) (no (unknown) (unknown) Pulse Rate 55 L 57 (units (unknown) date) L 57 L unknown) (unknown) (no (unknown) (unknown) Pulse Rate 58 L 59 (units (unknown) date) L unknown) (unknown) (no (unknown) (unknown) RBC 3.53 L (units (unk nown) date) unknown) (unknown) (no (unknown) (unknown) RBC Morphology See (units (unknown) date) below unknown) (unknown) (no (unknown) (unknown) RBC Morphology (units (unknown) date) unknown) (unknown) (no (unknown) (unknown) RBC (units (unkno wn) date) unknown) (unknown) (no (unknown) (unknown) RDW 20.1 H (units (unk nown) date) unknown) (unknown) (no (unknown) (unknown) RDW (units (unkno wn) date) unknown) (unknown) (no (unknown) (unknown) Respiratory Rate (units (unknown) date) 17 17 18 unknown) (unknown) (no (unknown) (unknown) Respiratory Rate (units (unknown) date) 18 13 unknown) (unknown) (no (unknown) (unknown) Respiratory Rate (units (unknown) date) 18 17 unknown) (unknown) (no (unknown) (unknown) S/P myringotomy (units (unknown) date) with insertion of unknown) tube (unknown) (no (unknown) (unknown) SARS-CoV-2 (PCR) (units (unknown) date) Negative unknown) (unknown) (no (unknown) (unknown) SARS-CoV-2 (PCR) (units (unknown) date) unknown) (unknown) (no (unknown) (unknown) (spontaneous (units (unknown) date) vaginal delivery) unknown) (-09/05/18) (unknown) (no (unknown) (unknown) Signed (units (unkno wn) date) By:<Electronically unknown) signed by Jabari Sena D.O.> (unknown) (no (unknown) (unknown) Smoker (units (unkno wn) date) unknown) (unknown) (no (unknown) (unknown) Smoking Status: (units (unknown) date) Former smoker unknown) (unknown) (no (unknown) (unknown) Social History (units (unknown) date) (Reviewed 08/01/22 unknown) @ 06:02 by Reinaldo Arthur DO) (unknown) (no (unknown) (unknown) Sodium 135 L (units (u nknown) date) unknown) (unknown) (no (unknown) (unknown) Sodium (units (unkno wn) date) unknown) (unknown) (no (unknown) (unknown) Subjective (units (unk nown) date) unknown) (unknown) (no (unknown) (unknown) Surgical History (units (unknown) date) (Reviewed 08/01/22 unknown) @ 06:02 by Reinaldo Arthur DO) (unknown) (no (unknown) (unknown) TCA's. EtOH (units (un known) date) negative. unknown) (unknown) (no (unknown) (unknown) TSH 4.71 H (units (unk nown) date) unknown) (unknown) (no (unknown) (unknown) TSH (units (unkno wn) date) unknown) (unknown) (no (unknown) (unknown) Temperature 98.5 F (units (unknown) date) unknown) (unknown) (no (unknown) (unknown) Temperature 98.7 F (units (unknown) date) unknown) (unknown) (no (unknown) (unknown) Temperature (units (un known) date) unknown) (unknown) (no (unknown) (unknown) The patient is at (units (unknown) date) much higher risk unknown) for medical and surgical complications (unknown) (no (unknown) (unknown) Vital Signs (units (un known) date) unknown) (unknown) (no (unknown) (unknown) Vitamin B12 401 (units (unknown) date) unknown) (unknown) (no (unknown) (unknown) Vitamin B12 (units (un known) date) unknown) (unknown) (no (unknown) (unknown) WBC 5.0 D (units (unkn own) date) unknown) (unknown) (no (unknown) (unknown) WBC (units (unkno wn) date) unknown) (unknown) (no (unknown) (unknown) [Embedded Image (units (unknown) date) Not Available] unknown) (unknown) (no (unknown) (unknown) admitted for (units (u nknown) date) substance unknown) withdrawal with hallucinations. (unknown) (no (unknown) (unknown) alcohol intake: (units (unknown) date) current unknown) (unknown) (no (unknown) (unknown) because of his (units (unknown) date) malnutrition. This unknown) increases the difficulty and complexity of (unknown) (no (unknown) (unknown) current (units (unkno wn) date) occupational unknown) exposures/hazards: Yes (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 with Pandemic ) (unknown) (no (unknown) (unknown) education level: (units (unknown) date) college unknown) (unknown) (no (unknown) (unknown) renee/zoroastrianism: (units (unknown) date) Buddhist unknown) (unknown) (no (unknown) (unknown) household members: (units (unknown) date) significant other unknown) (unknown) (no (unknown) (unknown) marital status: (units (unknown) date) unknown) (unknown) (no (unknown) (unknown) medical and (units (un known) date) surgical unknown) interventions and increases the chances of poor outcomes (unknown) (no (unknown) (unknown) meds. (units (unkno wn) date) unknown) (unknown) (no (unknown) (unknown) number of (units (unkn own) date) children: 1 unknown) (unknown) (no (unknown) (unknown) occupational (units (u nknown) date) status: employed unknown) (unknown) (no (unknown) (unknown) past/present (units (u nknown) date) alcohol abuse of unknown) 750 cc vodka/day, 20% wt loss in 1 yr, and (unknown) (no (unknown) (unknown) second hand (units (un known) date) exposure: No unknown) (growing up as a child - not currently) (unknown) (no (unknown) (unknown) special renee (units ( unknown) date) needs: No unknown) (unknown) (no (unknown) (unknown) substance use (units ( unknown) date) type: does not use unknown) (unknown) (no (unknown) (unknown) such as morbidity (units (unknown) date) and mortality. unknown) (unknown) (no (unknown) (unknown) today; this time (units (unknown) date) is exclusive of unknown) procedural time. (unknown) (no (unknown) (unknown) when able to take (units (unknown) date) oral meds unknown) (unknown) (no (unknown) (unknown) withdrawal (units (unk nown) date) unknown) (unknown) (no (unknown) (unknown) withdrawals (units (unk nown) date) symptoms would like unknown) be out of window. UDS positive benzos, barbs and Result panel 2432 (unknown) (no (unknown) (unknown) (no value) (units (unk nown) date) unknown) (unknown) (no (unknown) (unknown) [id number] (units (unkn own) date) unknown) (unknown) (no (unknown) (unknown) 08/02/222009 (units ( unknown) date) unknown) (unknown) (no (unknown) (unknown) :: (units (unkno wn) date) unknown) (unknown) (no (unknown) (unknown) Age/Sex: 31 / F (units (unknown) date) unknown) (unknown) (no (unknown) (unknown) D/w bedside RN. (units (unknown) date) unknown) (unknown) (no (unknown) (unknown) : 1990 (units (unknown) date) Acct:[id number] unknown) (unknown) (no (unknown) (unknown) Date Patient Seen: (units (unknown) date) 08/02/22 unknown) (unknown) (no (unknown) (unknown) Date of Service: (units (unknown) date) 08/01/22 unknown) (unknown) (no (unknown) (unknown) ICU (units (unkno wn) date) Multidisciplinary unknown) Rounds (unknown) (no (unknown) (unknown) [facility] (units (unknown) date) [address] unknown) [place] [id number] (unknown) (no (unknown) (unknown) Note: (units (unkno wn) date) unknown) (unknown) (no (unknown) (unknown) On precedex 1 (units ( unknown) date) mcg/kg/hr, scheduled unknown) phenobarb, and librium. Patient is (unknown) (no (unknown) (unknown) Patient: (units (unkno wn) date) Sarah Connors unknown) MR#: M (unknown) (no (unknown) (unknown) Provider: (units (unkn own) date) Paulo Dixon MD unknown) (unknown) (no (unknown) (unknown) Signed (units (unkno wn) date) By:<Electronically unknown) signed by Paulo Dixon MD> (unknown) (no (unknown) (unknown) This patient was (units (unknown) date) seen via real time unknown) interactive two-way audiovisual (unknown) (no (unknown) (unknown) Time Patient Seen: (units (unknown) date) 20:09 unknown) (unknown) (no (unknown) (unknown) cooperative and (units (unknown) date) follow simple unknown) commands. Start titrating down precedex in the am. (unknown) (no (unknown) (unknown) telecommunication. (units (unknown) date) unknown) Result panel 2433 (unknown) (no date) (unknown) (unknown) 3.8 mmol/l (unkn own) Result panel 2434 (unknown) (no date) (unknown) (unknown) 0 /ul (unkn own) (unknown) (no date) (unknown) (unknown) 0.4 % (unkn own) (unknown) (no date) (unknown) (unknown) 10.0 g/dl (unkn own) (unknown) (no date) (unknown) (unknown) 100 /ul (unkn own) (unknown) (no date) (unknown) (unknown) 1300 /ul (unkn own) (unknown) (no date) (unknown) (unknown) 155 x10 3/ul (unkn own) (unknown) (no date) (unknown) (unknown) 2.5 % (unkn own) (unknown) (no date) (unknown) (unknown) 20.3 % (unkn own) (unknown) (no date) (unknown) (unknown) 26.4 % (unkn own) (unknown) (no date) (unknown) (unknown) 27.0 pg (unkn own) (unknown) (no date) (unknown) (unknown) 29.7 % (unkn own) (unknown) (no date) (unknown) (unknown) 3.71 x10 6/ul (unkn own) (unknown) (no date) (unknown) (unknown) 3100 /ul (unkn own) (unknown) (no date) (unknown) (unknown) 33.7 % (unkn own) (unknown) (no date) (unknown) (unknown) 4.9 x10 3/ul (unkn own) (unknown) (no date) (unknown) (unknown) 400 /ul (unkn own) (unknown) (no date) (unknown) (unknown) 63.0 % (unkn own) (unknown) (no date) (unknown) (unknown) 7.7 % (unkn own) (unknown) (no date) (unknown) (unknown) 80.1 fl (unkn own) Result panel 2435 (unknown) (no date) (unknown) (unknown) 0 /ul (unkn own) (unknown) (no date) (unknown) (unknown) 0.4 % (unkn own) (unknown) (no date) (unknown) (unknown) 10.0 g/dl (unkn own) (unknown) (no date) (unknown) (unknown) 100 /ul (unkn own) (unknown) (no date) (unknown) (unknown) 1300 /ul (unkn own) (unknown) (no date) (unknown) (unknown) 155 x10 3/ul (unkn own) (unknown) (no date) (unknown) (unknown) 2.5 % (unkn own) (unknown) (no date) (unknown) (unknown) 20.3 % (unkn own) (unknown) (no date) (unknown) (unknown) 26.4 % (unkn own) (unknown) (no date) (unknown) (unknown) 27.0 pg (unkn own) (unknown) (no date) (unknown) (unknown) 29.7 % (unkn own) (unknown) (no date) (unknown) (unknown) 3.71 x10 6/ul (unkn own) (unknown) (no date) (unknown) (unknown) 3100 /ul (unkn own) (unknown) (no date) (unknown) (unknown) 33.7 % (unkn own) (unknown) (no date) (unknown) (unknown) 4.9 x10 3/ul (unkn own) (unknown) (no date) (unknown) (unknown) 400 /ul (unkn own) (unknown) (no date) (unknown) (unknown) 63.0 % (unkn own) (unknown) (no date) (unknown) (unknown) 7.7 % (unkn own) (unknown) (no date) (unknown) (unknown) 80.1 fl (unkn own) Result panel [id number] (unknown) (no date) (unknown) (unknown) 0 /ul (unkn own) (unknown) (no date) (unknown) (unknown) 0.4 % (unkn own) (unknown) (no date) (unknown) (unknown) 1 (units unknown) (unknown) (unknown) (no date) (unknown) (unknown) 10.0 g/dl (unkn own) (unknown) (no date) (unknown) (unknown) 100 /ul (unkn own) (unknown) (no date) (unknown) (unknown) 1300 /ul (unkn own) (unknown) (no date) (unknown) (unknown) 155 x10 3/ul (unkn own) (unknown) (no date) (unknown) (unknown) 2.5 % (unkn own) (unknown) (no date) (unknown) (unknown) 20.3 % (unkn own) (unknown) (no date) (unknown) (unknown) 26.4 % (unkn own) (unknown) (no date) (unknown) (unknown) 27.0 pg (unkn own) (unknown) (no date) (unknown) (unknown) 29.7 % (unkn own) (unknown) (no date) (unknown) (unknown) 3.71 x10 6/ul (unkn own) (unknown) (no date) (unknown) (unknown) 3100 /ul (unkn own) (unknown) (no date) (unknown) (unknown) 33.7 % (unkn own) (unknown) (no date) (unknown) (unknown) 4.9 x10 3/ul (unkn own) (unknown) (no date) (unknown) (unknown) 400 /ul (unkn own) (unknown) (no date) (unknown) (unknown) 63.0 % (unkn own) (unknown) (no date) (unknown) (unknown) 7.7 % (unkn own) (unknown) (no date) (unknown) (unknown) 80.1 fl (unkn own) Result panel [id number] (unknown) (no (unknown) (unknown) (no value) (units (unk nown) date) unknown) (unknown) (no (unknown) (unknown) (past 8 hours): (units (unknown) date) unknown) (unknown) (no (unknown) (unknown) [id number] (units (unkn own) date) unknown) (unknown) (no (unknown) (unknown) 01:00 08/03/22 (units (unknown) date) unknown) (unknown) (no (unknown) (unknown) 01:00 (units (unkno wn) date) unknown) (unknown) (no (unknown) (unknown) 01:30 08/03/22 (units (unknown) date) unknown) (unknown) (no (unknown) (unknown) 02:00 08/03/22 (units (unknown) date) unknown) (unknown) (no (unknown) (unknown) 02:00 (units (unkno wn) date) unknown) (unknown) (no (unknown) (unknown) 02:14 08/03/22 (units (unknown) date) unknown) (unknown) (no (unknown) (unknown) 02:30 08/03/22 (units (unknown) date) unknown) (unknown) (no (unknown) (unknown) 08/02/22 08/03/22 (units (unknown) date) unknown) (unknown) (no (unknown) (unknown) 08/02/22 21:20 (units (unknown) date) unknown) (unknown) (no (unknown) (unknown) 08/03/22 07:50 (units (unknown) date) unknown) (unknown) (no (unknown) (unknown) 08/03/22 (units (unkno wn) date) unknown) (unknown) (no (unknown) (unknown) 03:00 08/03/22 (units (unknown) date) unknown) (unknown) (no (unknown) (unknown) 03:00 (units (unkno wn) date) unknown) (unknown) (no (unknown) (unknown) 03:30 (units (unkno wn) date) unknown) (unknown) (no (unknown) (unknown) 03:44 08/03/22 (units (unknown) date) unknown) (unknown) (no (unknown) (unknown) 04:00 08/03/22 (units (unknown) date) unknown) (unknown) (no (unknown) (unknown) 04:30 (units (unkno wn) date) unknown) (unknown) (no (unknown) (unknown) 05:00 08/03/22 (units (unknown) date) unknown) (unknown) (no (unknown) (unknown) 05:30 (units (unkno wn) date) unknown) (unknown) (no (unknown) (unknown) 06:00 08/03/22 (units (unknown) date) unknown) (unknown) (no (unknown) (unknown) 06:30 (units (unkno wn) date) unknown) (unknown) (no (unknown) (unknown) 07:00 08/03/22 (units (unknown) date) unknown) (unknown) (no (unknown) (unknown) 07:00 (units (unkno wn) date) unknown) (unknown) (no (unknown) (unknown) 21:20 07:50 (units (un known) date) unknown) (unknown) (no (unknown) (unknown) ABD: soft, (units (unk nown) date) nontender, unknown) nondistended, no organomegaly (unknown) (no (unknown) (unknown) Age/Sex: 31 / F (units (unknown) date) unknown) (unknown) (no (unknown) (unknown) Alcohol withdrawal (units (unknown) date) delirium, acute, unknown) hyperactive (unknown) (no (unknown) (unknown) Alcoholism (units (unk nown) date) unknown) (unknown) (no (unknown) (unknown) Anemia (-2018) (units (unknown) date) unknown) (unknown) (no (unknown) (unknown) Anisocytosis 1+ H (units (unknown) date) unknown) (unknown) (no (unknown) (unknown) Baso # (Auto) 0 (units (unknown) date) unknown) (unknown) (no (unknown) (unknown) Baso % (Auto) 0.4 (units (unknown) date) unknown) (unknown) (no (unknown) (unknown) Blood Pressure (units (unknown) date) 122/76 unknown) (unknown) (no (unknown) (unknown) Blood Pressure (units (unknown) date) 126/83 unknown) (unknown) (no (unknown) (unknown) Blood Pressure (units (unknown) date) 126/88 unknown) (unknown) (no (unknown) (unknown) Blood Pressure (units (unknown) date) 128/80 unknown) (unknown) (no (unknown) (unknown) Blood Pressure (units (unknown) date) 128/83 unknown) (unknown) (no (unknown) (unknown) Blood Pressure (units (unknown) date) 130/81 unknown) (unknown) (no (unknown) (unknown) Blood Pressure (units (unknown) date) 138/77 unknown) (unknown) (no (unknown) (unknown) Blood Pressure (units (unknown) date) unknown) (unknown) (no (unknown) (unknown) CV: regular rate (units (unknown) date) and rhythm, no unknown) murmurs (unknown) (no (unknown) (unknown) : 1990 (units (unknown) date) Acct:[id number] unknown) (unknown) (no (unknown) (unknown) Date of Service: (units (unknown) date) 08/01/22 unknown) (unknown) (no (unknown) (unknown) EXT: warm and well (units (unknown) date) perfused with no unknown) edema (unknown) (no (unknown) (unknown) Eos # (Auto) 100 (units (unknown) date) unknown) (unknown) (no (unknown) (unknown) Eos % (Auto) 2.5 (units (unknown) date) unknown) (unknown) (no (unknown) (unknown) Exam Narrative: (units (unknown) date) unknown) (unknown) (no (unknown) (unknown) Exam (units (unkno wn) date) unknown) (unknown) (no (unknown) (unknown) Family History (units (unknown) date) (Reviewed 08/01/22 unknown) @ 06:02 by Reinaldo Arthur DO) (unknown) (no (unknown) (unknown) Family/Other (units (u nknown) date) Alcoholism unknown) (unknown) (no (unknown) (unknown) Family/Other (units (u nknown) date) Diabetes mellitus unknown) (unknown) (no (unknown) (unknown) Father Alcoholism (units (unknown) date) unknown) (unknown) (no (unknown) (unknown) GEN: no acute (units ( unknown) date) distress, sleeping unknown) (unknown) (no (unknown) (unknown) Grandfather (units [...] extraction () unknown) (unknown) (no (unknown) (unknown) HEENT: moist (units (u nknown) date) mucous membranes, unknown) PERRL (unknown) (no (unknown) (unknown) Hct 29.7 L (units (unk nown) date) unknown) (unknown) (no (unknown) (unknown) Hgb 10.0 L (units (unk nown) date) unknown) (unknown) (no (unknown) (unknown) Insomnia (units (unkno wn) date) unknown) (unknown) (no (unknown) (unknown) [facility] (units (unknown) date) [address] unknown) [place] [address] (unknown) (no (unknown) (unknown) Laboratory Results (units (unknown) date) - last 24 hr unknown) (unknown) (no (unknown) (unknown) Labs (units (unkno wn) date) unknown) (unknown) (no (unknown) (unknown) Labs: (units (unkno wn) date) unknown) (unknown) (no (unknown) (unknown) Lymph # (Auto) (units (unknown) date) 1300 unknown) (unknown) (no (unknown) (unknown) Lymph % (Auto) (units (unknown) date) 26.4 unknown) (unknown) (no (unknown) (unknown) MCH 27.0 (units (unkno wn) date) unknown) (unknown) (no (unknown) (unknown) MCHC 33.7 (units (unkn own) date) unknown) (unknown) (no (unknown) (unknown) MCV 80.1 (units (unkno wn) date) unknown) (unknown) (no (unknown) (unknown) Medical History (units (unknown) date) (Reviewed 08/01/22 unknown) @ 06:02 by Reinaldo Arthur DO) (unknown) (no (unknown) (unknown) Menometrorrhagia (units (unknown) date) unknown) (unknown) (no (unknown) (unknown) Yates # (Auto) 400 (units (unknown) date) unknown) (unknown) (no (unknown) (unknown) Yates % (Auto) 7.7 (units (unknown) date) unknown) (unknown) (no (unknown) (unknown) Mother Diabetes (units (unknown) date) mellitus unknown) (unknown) (no (unknown) (unknown) NECK: trachea (units ( unknown) date) midline, no JVD unknown) (unknown) (no (unknown) (unknown) NEURO: no focal (units (unknown) date) deficits unknown) (unknown) (no (unknown) (unknown) Narrative (units (unkn own) date) unknown) (unknown) (no (unknown) (unknown) Neut # (Auto) 3100 (units (unknown) date) unknown) (unknown) (no (unknown) (unknown) Neut % (Auto) 63.0 (units (unknown) date) unknown) (unknown) (no (unknown) (unknown) Obesity (units (unkno wn) date) unknown) (unknown) (no (unknown) (unknown) Objective (units (unkn own) date) unknown) (unknown) (no (unknown) (unknown) Overweight (units (unk nown) date) unknown) (unknown) (no (unknown) (unknown) Oxygen Delivery (units (unknown) date) Method Room Air unknown) (unknown) (no (unknown) (unknown) Oxygen Delivery (units (unknown) date) Method unknown) (unknown) (no (unknown) (unknown) Oxygen Flow Rate 0 (units (unknown) date) unknown) (unknown) (no (unknown) (unknown) PFSH (units (unkno wn) date) unknown) (unknown) (no (unknown) (unknown) PULM: clear (units (un known) date) bilaterally unknown) (unknown) (no (unknown) (unknown) Patient: (units (unkno wn) date) Sarah Connors R unknown) MR#: M (unknown) (no (unknown) (unknown) Plt Count 155 (units ( unknown) date) unknown) (unknown) (no (unknown) (unknown) Potassium 3.8 (units ( unknown) date) unknown) (unknown) (no (unknown) (unknown) Progress Note (units ( unknown) date) unknown) (unknown) (no (unknown) (unknown) Provider: (units (unkn own) date) Jabari Sena unknown) D.O. (unknown) (no (unknown) (unknown) Pulse Oximetry 94 (units (unknown) date) unknown) (unknown) (no (unknown) (unknown) Pulse Oximetry 95 (units (unknown) date) 98 unknown) (unknown) (no (unknown) (unknown) Pulse Oximetry 98 (units (unknown) date) 98 unknown) (unknown) (no (unknown) (unknown) Pulse Oximetry 98 (units (unknown) date) unknown) (unknown) (no (unknown) (unknown) Pulse Oximetry 99 (units (unknown) date) 100 unknown) (unknown) (no (unknown) (unknown) Pulse Oximetry 99 (units (unknown) date) 98 unknown) (unknown) (no (unknown) (unknown) Pulse Oximetry 99 (units (unknown) date) unknown) (unknown) (no (unknown) (unknown) Pulse Rate 45 L (units (unknown) date) unknown) (unknown) (no (unknown) (unknown) Pulse Rate 46 L 46 (units (unknown) date) L unknown) (unknown) (no (unknown) (unknown) Pulse Rate 47 L 48 (units (unknown) date) L unknown) (unknown) (no (unknown) (unknown) Pulse Rate 47 L (units (unknown) date) unknown) (unknown) (no (unknown) (unknown) Pulse Rate 48 L (units (unknown) date) unknown) (unknown) (no (unknown) (unknown) Pulse Rate 49 L 47 (units (unknown) date) L unknown) (unknown) (no (unknown) (unknown) Pulse Rate 49 L 49 (units (unknown) date) L unknown) (unknown) (no (unknown) (unknown) Pulse Rate 50 L 50 (units (unknown) date) L unknown) (unknown) (no (unknown) (unknown) RBC 3.71 L (units (unk nown) date) unknown) (unknown) (no (unknown) (unknown) RBC Morphology Not (units (unknown) date) Reportable unknown) (unknown) (no (unknown) (unknown) RDW 20.3 H (units (unk nown) date) unknown) (unknown) (no (unknown) (unknown) Respiratory Rate (units (unknown) date) 16 15 unknown) (unknown) (no (unknown) (unknown) Respiratory Rate (units (unknown) date) 16 unknown) (unknown) (no (unknown) (unknown) Respiratory Rate (units (unknown) date) 17 16 unknown) (unknown) (no (unknown) (unknown) Respiratory Rate (units (unknown) date) 18 22 unknown) (unknown) (no (unknown) (unknown) Respiratory Rate (units (unknown) date) 19 19 unknown) (unknown) (no (unknown) (unknown) Respiratory Rate (units (unknown) date) 19 unknown) (unknown) (no (unknown) (unknown) Respiratory Rate (units (unknown) date) 20 17 unknown) (unknown) (no (unknown) (unknown) S/P myringotomy [...] (unknown) Social History (units (unknown) date) (Reviewed 08/01/22 unknown) @ 06:02 by Reinaldo Arthur DO) (unknown) (no (unknown) (unknown) Surgical History (units (unknown) date) (Reviewed 08/01/22 unknown) @ 06:02 by Reinaldo Arthur DO) (unknown) (no (unknown) (unknown) Temperature 97.7 F (units (unknown) date) unknown) (unknown) (no (unknown) (unknown) Temperature 98.7 F (units (unknown) date) unknown) (unknown) (no (unknown) (unknown) Temperature (units (un known) date) unknown) (unknown) (no (unknown) (unknown) Vital Signs (units (un known) date) unknown) (unknown) (no (unknown) (unknown) WBC 4.9 (units (unkno wn) date) unknown) (unknown) (no (unknown) (unknown) [Embedded Image (units (unknown) date) Not Available] unknown) (unknown) (no (unknown) (unknown) alcohol intake: (units (unknown) date) current unknown) (unknown) (no (unknown) (unknown) current (units (unkno wn) date) occupational unknown) exposures/hazards: Yes (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 with Pandemic ) (unknown) (no (unknown) (unknown) education level: (units (unknown) date) college unknown) (unknown) (no (unknown) (unknown) renee/zoroastrianism: (units (unknown) date) Buddhist unknown) (unknown) (no (unknown) (unknown) household members: (units (unknown) date) significant other unknown) (unknown) (no (unknown) (unknown) marital status: (units (unknown) date) unknown) (unknown) (no (unknown) (unknown) number of (units (unkn own) date) children: 1 unknown) (unknown) (no (unknown) (unknown) occupational (units (u nknown) date) status: employed unknown) (unknown) (no (unknown) (unknown) second hand (units (un known) date) exposure: No unknown) (growing up as a child - not currently) (unknown) (no (unknown) (unknown) special renee (units ( unknown) date) needs: No unknown) (unknown) (no (unknown) (unknown) substance use (units ( unknown) date) type: does not use unknown) Result panel 2438 (unknown) (no date) (unknown) (unknown) > 60 ml/min (unkn own) (unknown) (no date) (unknown) (unknown) > 60 ml/min (unkn own) (unknown) (no date) (unknown) (unknown) 0.55 mg/dl (unkn own) (unknown) (no date) (unknown) (unknown) 101 mmol/l (unkn own) (unknown) (no date) (unknown) (unknown) 131 mg/dl (unkn own) (unknown) (no date) (unknown) (unknown) 131 mg/dl (unkn own) (unknown) (no date) (unknown) (unknown) 134 mmol/l (unkn own) (unknown) (no date) (unknown) (unknown) 2 mg/dl (unkn own) (unknown) (no date) (unknown) (unknown) 28 mmol/l (unkn own) (unknown) (no date) (unknown) (unknown) 3.4 mmol/l (unkn own) (unknown) (no date) (unknown) (unknown) 3.6 (units unknown) (unknown) (unknown) (no date) (unknown) (unknown) 8.1 mg/dl (unkn own) Result panel 2439 (unknown) (no (unknown) (unknown) (no value) (units (unk nown) date) unknown) (unknown) (no (unknown) (unknown) (past 8 hours): (units (unknown) date) unknown) (unknown) (no (unknown) (unknown) [id number] (units (unkn own) date) unknown) (unknown) (no (unknown) (unknown) 01:00 08/03/22 (units (unknown) date) unknown) (unknown) (no (unknown) (unknown) 01:00 (units (unkno wn) date) unknown) (unknown) (no (unknown) (unknown) 01:30 08/03/22 (units (unknown) date) unknown) (unknown) (no (unknown) (unknown) 02:00 08/03/22 (units (unknown) date) unknown) (unknown) (no (unknown) (unknown) 02:00 (units (unkno wn) date) unknown) (unknown) (no (unknown) (unknown) 02:14 08/03/22 (units (unknown) date) unknown) (unknown) (no (unknown) (unknown) 02:30 08/03/22 (units (unknown) date) unknown) (unknown) (no (unknown) (unknown) 07/14/22 [Rx (units (u nknown) date) Confirmed 08/01/22] unknown) (unknown) (no (unknown) (unknown) 08/01/22] (units (unkn own) date) unknown) (unknown) (no (unknown) (unknown) 08/02/22 08/03/22 (units (unknown) date) 08/03/22 unknown) (unknown) (no (unknown) (unknown) 08/03/22 07:50 (units (unknown) date) unknown) (unknown) (no (unknown) (unknown) 08/03/22 (units (unkno wn) date) unknown) (unknown) (no (unknown) (unknown) 03:00 08/03/22 (units (unknown) date) unknown) (unknown) (no (unknown) (unknown) 03:00 (units (unkno wn) date) unknown) (unknown) (no (unknown) (unknown) 03:30 (units (unkno wn) date) unknown) (unknown) (no (unknown) (unknown) 03:44 08/03/22 (units (unknown) date) unknown) (unknown) (no (unknown) (unknown) 04:00 08/03/22 (units (unknown) date) unknown) (unknown) (no (unknown) (unknown) 04:30 (units (unkno wn) date) unknown) (unknown) (no (unknown) (unknown) 05:00 08/03/22 (units (unknown) date) unknown) (unknown) (no (unknown) (unknown) 05:30 (units (unkno wn) date) unknown) (unknown) (no (unknown) (unknown) 06:00 08/03/22 (units (unknown) date) unknown) (unknown) (no (unknown) (unknown) 06:30 (units (unkno wn) date) unknown) (unknown) (no (unknown) (unknown) 07:00 08/03/22 (units (unknown) date) unknown) (unknown) (no (unknown) (unknown) 07:00 (units (unkno wn) date) unknown) (unknown) (no (unknown) (unknown) 08:15 08/03/22 (units (unknown) date) 02:15 unknown) (unknown) (no (unknown) (unknown) 19:23 (units (unkno wn) date) unknown) (unknown) (no (unknown) (unknown) 2 MCG/KG/HR (units (un known) date) unknown) (unknown) (no (unknown) (unknown) 21:20 07:50 07:50 (units (unknown) date) unknown) (unknown) (no (unknown) (unknown) 22:23 (units (unkno wn) date) unknown) (unknown) (no (unknown) (unknown) Administration (units (unknown) date) unknown) (unknown) (no (unknown) (unknown) Age/Sex: 31 / F (units (unknown) date) unknown) (unknown) (no (unknown) (unknown) Alcohol Withdrawal (units (unknown) date) unknown) (unknown) (no (unknown) (unknown) Anisocytosis 1+ H (units (unknown) date) unknown) (unknown) (no (unknown) (unknown) BID SANDY (units (unkno wn) date) Administration unknown) (unknown) (no (unknown) (unknown) BUN 2 L (units (unkno wn) date) unknown) (unknown) (no (unknown) (unknown) BUN/Creatinine (units (unknown) date) Ratio 3.6 L unknown) (unknown) (no (unknown) (unknown) Baso # (Auto) 0 (units (unknown) date) unknown) (unknown) (no (unknown) (unknown) Baso % (Auto) 0.4 (units (unknown) date) unknown) (unknown) (no (unknown) (unknown) Blood Pressure (units (unknown) date) 122/76 unknown) (unknown) (no (unknown) (unknown) Blood Pressure (units (unknown) date) 126/83 unknown) (unknown) (no (unknown) (unknown) Blood Pressure (units (unknown) date) 126/88 unknown) (unknown) (no (unknown) (unknown) Blood Pressure (units (unknown) date) 128/80 unknown) (unknown) (no (unknown) (unknown) Blood Pressure (units (unknown) date) 128/83 unknown) (unknown) (no (unknown) (unknown) Blood Pressure (units (unknown) date) 130/81 unknown) (unknown) (no (unknown) (unknown) Blood Pressure (units (unknown) date) 138/77 unknown) (unknown) (no (unknown) (unknown) Blood Pressure (units (unknown) date) unknown) (unknown) (no (unknown) (unknown) CIWAPRN PRN (units (un known) date) Administration unknown) (unknown) (no (unknown) (unknown) CONT SANDY (units (unkno wn) date) Administration unknown) (unknown) (no (unknown) (unknown) Calcium 8.1 L (units ( unknown) date) unknown) (unknown) (no (unknown) (unknown) Carbon Dioxide 28 (units (unknown) date) unknown) (unknown) (no (unknown) (unknown) Chlordiazepoxide (units (unknown) date) 25 Mg Capsule PO unknown) Not Given (unknown) (no (unknown) (unknown) Chlordiazepoxide (units (unknown) date) HCl 50 mg 08/01/22 unknown) 12:00 08/03/22 06:38 (unknown) (no (unknown) (unknown) Chloride 101 (units (u nknown) date) unknown) (unknown) (no (unknown) (unknown) Chloride IV (units (un known) date) Infused unknown) (unknown) (no (unknown) (unknown) Confirmed (units (unkn own) date) 08/01/22] unknown) (unknown) (no (unknown) (unknown) Consent obtained (units (unknown) date) for unknown) 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: Yes (unknown) (no (unknown) (unknown) Creatinine 0.55 (units (unknown) date) unknown) (unknown) (no (unknown) (unknown) Current (units (unkno wn) date) Medications unknown) (unknown) (no (unknown) (unknown) DAILY SANDY (units (unkn own) date) Administration unknown) (unknown) (no (unknown) (unknown) DAILY SANDY Infusion (units (unknown) date) unknown) (unknown) (no (unknown) (unknown) DAILY SANDY (units (unkn own) date) unknown) (unknown) (no (unknown) (unknown) : 1990 (units (unknown) date) Acct:[id number] unknown) (unknown) (no (unknown) (unknown) Date of Service: (units (unknown) date) 08/01/22 unknown) (unknown) (no (unknown) (unknown) Dextrose (units (unkno wn) date) 5%-Lactated Ringers unknown) IV 84 mls/hr (unknown) (no (unknown) (unknown) Dextrose/Lactated (units (unknown) date) Ringer's 1,000 mls unknown) @ 84 mls/hr 08/01/22 20:15 08/02/22 (unknown) (no (unknown) (unknown) Enoxaparin 40 (units ( unknown) date) Mg/0.4 Ml Syringe unknown) SUBCUT 40 mg (unknown) (no (unknown) (unknown) Enoxaparin Sodium (units (unknown) date) 40 mg 08/02/22 unknown) 09:45 08/02/22 10:14 (unknown) (no (unknown) (unknown) Eos # (Auto) 100 (units (unknown) date) unknown) (unknown) (no (unknown) (unknown) Eos % (Auto) 2.5 (units (unknown) date) unknown) (unknown) (no (unknown) (unknown) Estimated GFR > 60 (units (unknown) date) unknown) (unknown) (no (unknown) (unknown) Exam (units (unkno wn) date) unknown) (unknown) (no (unknown) (unknown) Fluoxetine 10 Mg (units (unknown) date) Capsule PO Not unknown) Given (unknown) (no (unknown) (unknown) Fluoxetine HCl 10 (units (unknown) date) mg 08/01/22 09:00 unknown) 08/02/22 08:11 (unknown) (no (unknown) (unknown) Folic Acid 1 Mg (units (unknown) date) Tablet PO Not Given unknown) (unknown) (no (unknown) (unknown) Folic Acid 1 mg (units (unknown) date) 08/01/22 09:00 unknown) 08/02/22 08:11 (unknown) (no (unknown) (unknown) Generic Name Dose (units (unknown) date) Route Start Last unknown) Admin (unknown) (no (unknown) (unknown) Glucose 131 H (units ( unknown) date) unknown) (unknown) (no (unknown) (unknown) Hct 29.7 L (units (unk nown) date) unknown) (unknown) (no (unknown) (unknown) Hgb 10.0 L (units (unk nown) date) unknown) (unknown) (no (unknown) (unknown) Home Medications (units (unknown) date) unknown) (unknown) (no (unknown) (unknown) Hydroxyzine (units (un known) date) Pamoate 25 Mg unknown) Capsule PO Not Given (unknown) (no (unknown) (unknown) Hydroxyzine (units (un known) date) Pamoate 50 mg unknown) 08/01/22 09:00 08/02/22 08:11 (unknown) (no (unknown) (unknown) Interval history: (units (unknown) date) unknown) (unknown) (no (unknown) (unknown) [facility] (units (unknown) date) [address] [place] [address] unknown) [place] [address] (unknown) (no (unknown) (unknown) Laboratory Results (units (unknown) date) - last 24 hr unknown) (unknown) (no (unknown) (unknown) Labs (units (unkno wn) date) unknown) (unknown) (no (unknown) (unknown) Labs: (units (unkno wn) date) unknown) (unknown) (no (unknown) (unknown) Lorazepam 0 mg (units (unknown) date) 08/01/22 08:00 unknown) 08/02/22 12:31 (unknown) (no (unknown) (unknown) Lorazepam 2 Mg/Ml (units (unknown) date) Inj IV 2 mg unknown) (unknown) (no (unknown) (unknown) Lymph # (Auto) (units (unknown) date) 1300 unknown) (unknown) (no (unknown) (unknown) Lymph % (Auto) (units (unknown) date) 26.4 unknown) (unknown) (no (unknown) (unknown) MCH 27.0 (units (unkno wn) date) unknown) (unknown) (no (unknown) (unknown) MCHC 33.7 (units (unkn own) date) unknown) (unknown) (no (unknown) (unknown) MCV 80.1 (units (unkno wn) date) unknown) (unknown) (no (unknown) (unknown) Medications: (units (u nknown) date) unknown) (unknown) (no (unknown) (unknown) Yates # (Auto) 400 (units (unknown) date) unknown) (unknown) (no (unknown) (unknown) Yates % (Auto) 7.7 (units (unknown) date) unknown) (unknown) (no (unknown) (unknown) Multivitamin 1 (units (unknown) date) Tablet PO Not Given unknown) (unknown) (no (unknown) (unknown) Multivitamins 1 (units (unknown) date) tab 08/01/22 09:00 unknown) 08/02/22 08:11 (unknown) (no (unknown) (unknown) Neut # (Auto) 3100 (units (unknown) date) unknown) (unknown) (no (unknown) (unknown) Neut % (Auto) 63.0 (units (unknown) date) unknown) (unknown) (no (unknown) (unknown) Objective (units (unkn own) date) unknown) (unknown) (no (unknown) (unknown) Oxygen Delivery (units (unknown) date) Method Room Air unknown) (unknown) (no (unknown) (unknown) Oxygen Delivery (units (unknown) date) Method unknown) (unknown) (no (unknown) (unknown) Oxygen Flow Rate 0 (units (unknown) date) unknown) (unknown) (no (unknown) (unknown) Pantoprazole 40 Mg (units (unknown) date) Vial IV 40 mg unknown) (unknown) (no (unknown) (unknown) Pantoprazole (units (u nknown) date) Sodium 40 mg unknown) 08/01/22 09:00 08/02/22 09:55 (unknown) (no (unknown) (unknown) Patient Location: (units (unknown) date) ICU unknown) (unknown) (no (unknown) (unknown) Patient summary: (units (unknown) date) 31 yo woman with unknown) PMH Of ETOH abuse admitted 08/01/22 for ETOH (unknown) (no (unknown) (unknown) Patient: (units (unkno wn) date) Sarah Connors R unknown) MR#: M (unknown) (no (unknown) (unknown) Phenobarbital 60 (units (unknown) date) mg 08/01/22 09:00 unknown) 08/02/22 21:29 (unknown) (no (unknown) (unknown) Phenobarbital 65 (units (unknown) date) Mg/Ml Vial IV 60 mg unknown) (unknown) (no (unknown) (unknown) Plt Count 155 (units ( unknown) date) unknown) (unknown) (no (unknown) (unknown) Potassium 3.8 3.4 (units (unknown) date) unknown) (unknown) (no (unknown) (unknown) Precedex IV 1 (units ( unknown) date) mcg/kg/hr unknown) (unknown) (no (unknown) (unknown) Protocol (units (unkno wn) date) unknown) (unknown) (no (unknown) (unknown) Provider: Riki Clay (units (unknown) date) Peg SÁNCHEZ unknown) (unknown) (no (unknown) (unknown) Pulse Oximetry 94 (units (unknown) date) unknown) (unknown) (no (unknown) (unknown) Pulse Oximetry 95 (units (unknown) date) 98 unknown) (unknown) (no (unknown) (unknown) Pulse Oximetry 98 (units (unknown) date) 98 unknown) (unknown) (no (unknown) (unknown) Pulse Oximetry 98 (units (unknown) date) unknown) (unknown) (no (unknown) (unknown) Pulse Oximetry 99 (units (unknown) date) 100 unknown) (unknown) (no (unknown) (unknown) Pulse Oximetry 99 (units (unknown) date) 98 unknown) (unknown) (no (unknown) (unknown) Pulse Oximetry 99 (units (unknown) date) unknown) (unknown) (no (unknown) (unknown) Pulse Rate 45 L (units (unknown) date) unknown) (unknown) (no (unknown) (unknown) Pulse Rate 46 L 46 (units (unknown) date) L unknown) (unknown) (no (unknown) (unknown) Pulse Rate 47 L 48 (units (unknown) date) L unknown) (unknown) (no (unknown) (unknown) Pulse Rate 47 L (units (unknown) date) unknown) (unknown) (no (unknown) (unknown) Pulse Rate 48 L (units (unknown) date) unknown) (unknown) (no (unknown) (unknown) Pulse Rate 49 L 47 (units (unknown) date) L unknown) (unknown) (no (unknown) (unknown) Pulse Rate 49 L 49 (units (unknown) date) L unknown) (unknown) (no (unknown) (unknown) Pulse Rate 50 L 50 (units (unknown) date) L unknown) (unknown) (no (unknown) (unknown) Pyridoxine 100 (units (unknown) date) Mg/Ml Vial IV 100 unknown) mg (unknown) (no (unknown) (unknown) Pyridoxine HCl 100 (units (unknown) date) mg 08/01/22 09:00 unknown) 08/02/22 09:55 (unknown) (no (unknown) (unknown) Q6HR SANDY (units (unkno wn) date) unknown) (unknown) (no (unknown) (unknown) RBC 3.71 L (units (unk nown) date) unknown) (unknown) (no (unknown) (unknown) RBC Morphology Not (units (unknown) date) Reportable unknown) (unknown) (no (unknown) (unknown) RDW 20.3 H (units (unk nown) date) unknown) (unknown) (no (unknown) (unknown) Respiratory Rate (units (unknown) date) 16 15 unknown) (unknown) (no (unknown) (unknown) Respiratory Rate (units (unknown) date) 16 unknown) (unknown) (no (unknown) (unknown) Respiratory Rate (units (unknown) date) 17 16 unknown) (unknown) (no (unknown) (unknown) Respiratory Rate (units (unknown) date) 18 22 unknown) (unknown) (no (unknown) (unknown) Respiratory Rate (units (unknown) date) 19 19 unknown) (unknown) (no (unknown) (unknown) Respiratory Rate (units (unknown) date) 19 unknown) (unknown) (no (unknown) (unknown) Respiratory Rate (units (unknown) date) 20 17 unknown) (unknown) (no (unknown) (unknown) Signed By: (units (unk nown) date) unknown) (unknown) (no (unknown) (unknown) Sodium 134 L (units (u nknown) date) unknown) (unknown) (no (unknown) (unknown) Subjective (units (unk nown) date) unknown) (unknown) (no (unknown) (unknown) TITRATE SANDY 13.494 (units (unknown) date) mls/hr unknown) (unknown) (no (unknown) (unknown) Teleintensivist (units (unknown) date) Progress Note unknown) (unknown) (no (unknown) (unknown) Temperature 97.7 F (units (unknown) date) unknown) (unknown) (no (unknown) (unknown) Temperature 98.7 F (units (unknown) date) unknown) (unknown) (no (unknown) (unknown) Temperature (units (un known) date) unknown) (unknown) (no (unknown) (unknown) Thiamine HCl 100 (units (unknown) date) mg/ Sodium 101 mls unknown) @ 404 mls/hr 08/01/22 09:00 08/02/22 (unknown) (no (unknown) (unknown) Trade Name Freq (units (unknown) date) PRN Reason Stop unknown) Dose Admin (unknown) (no (unknown) (unknown) Visit Medications (units (unknown) date) (administered) unknown) (unknown) (no (unknown) (unknown) Vital Signs (units (un known) date) unknown) (unknown) (no (unknown) (unknown) WBC 4.9 (units (unkno wn) date) unknown) (unknown) (no (unknown) (unknown) [Embedded Image (units (unknown) date) Not Available] unknown) (unknown) (no (unknown) (unknown) [Rx Confirmed (units ( unknown) date) 08/01/22] unknown) (unknown) (no (unknown) (unknown) dexmedeTOMIDine in (units (unknown) date) 0.9 % NaCL 400 mcg unknown) in 100 mls @ 26.989 mls/hr 08/01/22 (unknown) (no (unknown) (unknown) fluoxetine 10 mg (units (unknown) date) capsule 10 mg PO unknown) DAILY 07/13/22 [History Confirmed 08/01/22] (unknown) (no (unknown) (unknown) hydroxyzine HCl 50 (units (unknown) date) mg tablet 50 mg PO unknown) DAILY 07/13/22 [History Confirmed (unknown) (no (unknown) (unknown) multivitamin with (units (unknown) date) folic acid 400 mcg unknown) tablet (Tab-A-Kael) 1 tab PO DAILY #30 tabs (unknown) (no (unknown) (unknown) pantoprazole 40 mg (units (unknown) date) tablet,delayed unknown) release 40 mg PO 0700 #30 tabs 07/14/22 [Rx (unknown) (no (unknown) (unknown) quetiapine 300 mg (units (unknown) date) tablet 300 mg PO unknown) DAILY 07/13/22 [History Confirmed 08/01/22] (unknown) (no (unknown) (unknown) thiamine (units (unkno wn) date) mononitrate (vit unknown) B1) 100 mg tablet 100 mg PO DAILY #30 tabs 07/14/22 (unknown) (no (unknown) (unknown) withrawal and DTS. (units (unknown) date) PT. given ativan, unknown) phenobarb, and placed on precedex drip. Result panel [id number] (unknown) (no (unknown) (unknown) (no value) (units (unk nown) date) unknown) (unknown) (no (unknown) (unknown) (past 8 hours): (units (unknown) date) unknown) (unknown) (no (unknown) (unknown) [id number] (units (unkn own) date) unknown) (unknown) (no (unknown) (unknown) 01:00 08/03/22 (units (unknown) date) unknown) (unknown) (no (unknown) (unknown) 01:00 (units (unkno wn) date) unknown) (unknown) (no (unknown) (unknown) 01:30 08/03/22 (units (unknown) date) unknown) (unknown) (no (unknown) (unknown) 02:00 08/03/22 (units (unknown) date) unknown) (unknown) (no (unknown) (unknown) 02:00 (units (unkno wn) date) unknown) (unknown) (no (unknown) (unknown) 02:14 08/03/22 (units (unknown) date) unknown) (unknown) (no (unknown) (unknown) 02:30 08/03/22 (units (unknown) date) unknown) (unknown) (no (unknown) (unknown) 07/14/22 [Rx (units (u nknown) date) Confirmed 08/01/22] unknown) (unknown) (no (unknown) (unknown) 08/01/22] (units (unkn own) date) unknown) (unknown) (no (unknown) (unknown) 08/02/22 08/03/22 (units (unknown) date) 08/03/22 unknown) (unknown) (no (unknown) (unknown) 08/03/22 07:50 (units (unknown) date) unknown) (unknown) (no (unknown) (unknown) 08/03/22 (units (unkno wn) date) unknown) (unknown) (no (unknown) (unknown) 03:00 08/03/22 (units (unknown) date) unknown) (unknown) (no (unknown) (unknown) 03:00 (units (unkno wn) date) unknown) (unknown) (no (unknown) (unknown) 03:30 (units (unkno wn) date) unknown) (unknown) (no (unknown) (unknown) 03:44 08/03/22 (units (unknown) date) unknown) (unknown) (no (unknown) (unknown) 04:00 08/03/22 (units (unknown) date) unknown) (unknown) (no (unknown) (unknown) 04:30 (units (unkno wn) date) unknown) (unknown) (no (unknown) (unknown) 05:00 08/03/22 (units (unknown) date) unknown) (unknown) (no (unknown) (unknown) 05:30 (units (unkno wn) date) unknown) (unknown) (no (unknown) (unknown) 06:00 08/03/22 (units (unknown) date) unknown) (unknown) (no (unknown) (unknown) 06:30 (units (unkno wn) date) unknown) (unknown) (no (unknown) (unknown) 07:00 08/03/22 (units (unknown) date) unknown) (unknown) (no (unknown) (unknown) 07:00 (units (unkno wn) date) unknown) (unknown) (no (unknown) (unknown) 08:15 08/03/22 (units (unknown) date) 02:15 unknown) (unknown) (no (unknown) (unknown) 19:23 (units (unkno wn) date) unknown) (unknown) (no (unknown) (unknown) 2 MCG/KG/HR (units (un known) date) unknown) (unknown) (no (unknown) (unknown) 21:20 07:50 07:50 (units (unknown) date) unknown) (unknown) (no (unknown) (unknown) 22:23 (units (unkno wn) date) unknown) (unknown) (no (unknown) (unknown) Administration (units (unknown) date) unknown) (unknown) (no (unknown) (unknown) Age/Sex: 31 / F (units (unknown) date) unknown) (unknown) (no (unknown) (unknown) Alcohol Withdrawal (units (unknown) date) unknown) (unknown) (no (unknown) (unknown) Anisocytosis 1+ H (units (unknown) date) unknown) (unknown) (no (unknown) (unknown) Assessment + Plan (units (unknown) date) narrative: unknown) (unknown) (no (unknown) (unknown) Assessment + Plan (units (unknown) date) unknown) (unknown) (no (unknown) (unknown) Assessmet (units (unkn own) date) unknown) (unknown) (no (unknown) (unknown) BID SANDY (units (unkno wn) date) Administration unknown) (unknown) (no (unknown) (unknown) BUN 2 L (units (unkno wn) date) unknown) (unknown) (no (unknown) (unknown) BUN/Creatinine (units (unknown) date) Ratio 3.6 L unknown) (unknown) (no (unknown) (unknown) Baso # (Auto) 0 (units (unknown) date) unknown) (unknown) (no (unknown) (unknown) Baso % (Auto) 0.4 (units (unknown) date) unknown) (unknown) (no (unknown) (unknown) Blood Pressure (units (unknown) date) 122/76 unknown) (unknown) (no (unknown) (unknown) Blood Pressure (units (unknown) date) 126/83 unknown) (unknown) (no (unknown) (unknown) Blood Pressure (units (unknown) date) 126/88 unknown) (unknown) (no (unknown) (unknown) Blood Pressure (units (unknown) date) 128/80 unknown) (unknown) (no (unknown) (unknown) Blood Pressure (units (unknown) date) 128/83 unknown) (unknown) (no (unknown) (unknown) Blood Pressure (units (unknown) date) 130/81 unknown) (unknown) (no (unknown) (unknown) Blood Pressure (units (unknown) date) 138/77 unknown) (unknown) (no (unknown) (unknown) Blood Pressure (units (unknown) date) unknown) (unknown) (no (unknown) (unknown) CIWAPRN PRN (units (un known) date) Administration unknown) (unknown) (no (unknown) (unknown) CONT SANDY (units (unkno wn) date) Administration unknown) (unknown) (no (unknown) (unknown) Calcium 8.1 L (units ( unknown) date) unknown) (unknown) (no (unknown) (unknown) Carbon Dioxide 28 (units (unknown) date) unknown) (unknown) (no (unknown) (unknown) Chlordiazepoxide (units (unknown) date) 25 Mg Capsule PO unknown) Not Given (unknown) (no (unknown) (unknown) Chlordiazepoxide (units (unknown) date) HCl 50 mg 08/01/22 unknown) 12:00 08/03/22 06:38 (unknown) (no (unknown) (unknown) Chloride 101 (units (u nknown) date) unknown) (unknown) (no (unknown) (unknown) Chloride IV (units (un known) date) Infused unknown) (unknown) (no (unknown) (unknown) Confirmed (units (unkn own) date) 08/01/22] unknown) (unknown) (no (unknown) (unknown) Consent obtained (units (unknown) date) for unknown) 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: Yes (unknown) (no (unknown) (unknown) Creatinine 0.55 (units (unknown) date) unknown) (unknown) (no (unknown) (unknown) Current (units (unkno wn) date) Medications unknown) (unknown) (no (unknown) (unknown) DAILY SANDY (units (unkn own) date) Administration unknown) (unknown) (no (unknown) (unknown) DAILY SANDY Infusion (units (unknown) date) unknown) (unknown) (no (unknown) (unknown) DAILY SANDY (units (unkn own) date) unknown) (unknown) (no (unknown) (unknown) : 1990 (units (unknown) date) Acct:[id number] unknown) (unknown) (no (unknown) (unknown) Date of Service: (units (unknown) date) 08/01/22 unknown) (unknown) (no (unknown) (unknown) Dextrose (units (unkno wn) date) 5%-Lactated Ringers unknown) IV 84 mls/hr (unknown) (no (unknown) (unknown) Dextrose/Lactated (units (unknown) date) Ringer's 1,000 mls unknown) @ 84 mls/hr 08/01/22 20:15 08/02/22 (unknown) (no (unknown) (unknown) ETOH (units (unkno wn) date) withdrawal/DTs unknown) (unknown) (no (unknown) (unknown) Enoxaparin 40 (units ( unknown) date) Mg/0.4 Ml Syringe unknown) SUBCUT 40 mg (unknown) (no (unknown) (unknown) Enoxaparin Sodium (units (unknown) date) 40 mg 08/02/22 unknown) 09:45 08/02/22 10:14 (unknown) (no (unknown) (unknown) Eos # (Auto) 100 (units (unknown) date) unknown) (unknown) (no (unknown) (unknown) Eos % (Auto) 2.5 (units (unknown) date) unknown) (unknown) (no (unknown) (unknown) Estimated GFR > 60 (units (unknown) date) unknown) (unknown) (no (unknown) (unknown) Exam Narrative: (units (unknown) date) unknown) (unknown) (no (unknown) (unknown) Exam (units (unkno wn) date) unknown) (unknown) (no (unknown) (unknown) Fluoxetine 10 Mg (units (unknown) date) Capsule PO Not unknown) Given (unknown) (no (unknown) (unknown) Fluoxetine HCl 10 (units (unknown) date) mg 08/01/22 09:00 unknown) 08/02/22 08:11 (unknown) (no (unknown) (unknown) Folic Acid 1 Mg (units (unknown) date) Tablet PO Not Given unknown) (unknown) (no (unknown) (unknown) Folic Acid 1 mg (units (unknown) date) 08/01/22 09:00 unknown) 08/02/22 08:11 (unknown) (no (unknown) (unknown) Generic Name Dose (units (unknown) date) Route Start Last unknown) Admin (unknown) (no (unknown) (unknown) Glucose 131 H (units ( unknown) date) unknown) (unknown) (no (unknown) (unknown) Hct 29.7 L (units (unk nown) date) unknown) (unknown) (no (unknown) (unknown) Hgb 10.0 L (units (unk nown) date) unknown) (unknown) (no (unknown) (unknown) Home Medications (units (unknown) date) unknown) (unknown) (no (unknown) (unknown) Hydroxyzine (units (un known) date) Pamoate 25 Mg unknown) Capsule PO Not Given (unknown) (no (unknown) (unknown) Hydroxyzine (units (un known) date) Pamoate 50 mg unknown) 08/01/22 09:00 08/02/22 08:11 (unknown) (no (unknown) (unknown) Interval history: (units (unknown) date) unknown) (unknown) (no (unknown) (unknown) [facility] (units (unknown) date) [address] [place] [address] unknown) [place] [address] (unknown) (no (unknown) (unknown) Laboratory Results (units (unknown) date) - last 24 hr unknown) (unknown) (no (unknown) (unknown) Labs (units (unkno wn) date) unknown) (unknown) (no (unknown) (unknown) Labs: (units (unkno wn) date) unknown) (unknown) (no (unknown) (unknown) Lorazepam 0 mg (units (unknown) date) 08/01/22 08:00 unknown) 08/02/22 12:31 (unknown) (no (unknown) (unknown) Lorazepam 2 Mg/Ml (units (unknown) date) Inj IV 2 mg unknown) (unknown) (no (unknown) (unknown) Lymph # (Auto) (units (unknown) date) 1300 unknown) (unknown) (no (unknown) (unknown) Lymph % (Auto) (units (unknown) date) 26.4 unknown) (unknown) (no (unknown) (unknown) MCH 27.0 (units (unkno wn) date) unknown) (unknown) (no (unknown) (unknown) MCHC 33.7 (units (unkn own) date) unknown) (unknown) (no (unknown) (unknown) MCV 80.1 (units (unkno wn) date) unknown) (unknown) (no (unknown) (unknown) Medications: (units (u nknown) date) unknown) (unknown) (no (unknown) (unknown) Yates # (Auto) 400 (units (unknown) date) unknown) (unknown) (no (unknown) (unknown) Yates % (Auto) 7.7 (units (unknown) date) unknown) (unknown) (no (unknown) (unknown) Multivitamin 1 (units (unknown) date) Tablet PO Not Given unknown) (unknown) (no (unknown) (unknown) Multivitamins 1 (units (unknown) date) tab 08/01/22 09:00 unknown) 08/02/22 08:11 (unknown) (no (unknown) (unknown) Narrative (units (unkn own) date) unknown) (unknown) (no (unknown) (unknown) Neut # (Auto) 3100 (units (unknown) date) unknown) (unknown) (no (unknown) (unknown) Neut % (Auto) 63.0 (units (unknown) date) unknown) (unknown) (no (unknown) (unknown) Objective (units (unkn own) date) unknown) (unknown) (no (unknown) (unknown) Oxygen Delivery (units (unknown) date) Method Room Air unknown) (unknown) (no (unknown) (unknown) Oxygen Delivery (units (unknown) date) Method unknown) (unknown) (no (unknown) (unknown) Oxygen Flow Rate 0 (units (unknown) date) unknown) (unknown) (no (unknown) (unknown) Pantoprazole 40 Mg (units (unknown) date) Vial IV 40 mg unknown) (unknown) (no (unknown) (unknown) Pantoprazole (units (u nknown) date) Sodium 40 mg unknown) 08/01/22 09:00 08/02/22 09:55 (unknown) (no (unknown) (unknown) Patient Location: (units (unknown) date) ICU unknown) (unknown) (no (unknown) (unknown) Patient summary: (units (unknown) date) 31 yo woman with unknown) PMH Of ETOH abuse admitted 08/01/22 for ETOH (unknown) (no (unknown) (unknown) Patient: (units (unkno wn) date) Sarah Connors R unknown) MR#: M (unknown) (no (unknown) (unknown) [place] seen over 2 (units (unknown) date) way audio-visual unknown) system. She is alert, calm, and cooperative (unknown) (no (unknown) (unknown) Phenobarbital 60 (units (unknown) date) mg 08/01/22 09:00 unknown) 08/02/22 21:29 (unknown) (no (unknown) (unknown) Phenobarbital 65 (units (unknown) date) Mg/Ml Vial IV 60 mg unknown) (unknown) (no (unknown) (unknown) Plan (units (unkno wn) date) unknown) (unknown) (no (unknown) (unknown) Plt Count 155 (units ( unknown) date) unknown) (unknown) (no (unknown) (unknown) Potassium 3.8 3.4 (units (unknown) date) unknown) (unknown) (no (unknown) (unknown) Precedex IV 1 (units ( unknown) date) mcg/kg/hr unknown) (unknown) (no (unknown) (unknown) Protocol (units (unkno wn) date) unknown) (unknown) (no (unknown) (unknown) Provider: Riki Clay (units (unknown) date) Peg SÁNCHEZ unknown) (unknown) (no (unknown) (unknown) Pulse Oximetry 94 (units (unknown) date) unknown) (unknown) (no (unknown) (unknown) Pulse Oximetry 95 (units (unknown) date) 98 unknown) (unknown) (no (unknown) (unknown) Pulse Oximetry 98 (units (unknown) date) 98 unknown) (unknown) (no (unknown) (unknown) Pulse Oximetry 98 (units (unknown) date) unknown) (unknown) (no (unknown) (unknown) Pulse Oximetry 99 (units (unknown) date) 100 unknown) (unknown) (no (unknown) (unknown) Pulse Oximetry 99 (units (unknown) date) 98 unknown) (unknown) (no (unknown) (unknown) Pulse Oximetry 99 (units (unknown) date) unknown) (unknown) (no (unknown) (unknown) Pulse Rate 45 L (units (unknown) date) unknown) (unknown) (no (unknown) (unknown) Pulse Rate 46 L 46 (units (unknown) date) L unknown) (unknown) (no (unknown) (unknown) Pulse Rate 47 L 48 (units (unknown) date) L unknown) (unknown) (no (unknown) (unknown) Pulse Rate 47 L (units (unknown) date) unknown) (unknown) (no (unknown) (unknown) Pulse Rate 48 L (units (unknown) date) unknown) (unknown) (no (unknown) (unknown) Pulse Rate 49 L 47 (units (unknown) date) L unknown) (unknown) (no (unknown) (unknown) Pulse Rate 49 L 49 (units (unknown) date) L unknown) (unknown) (no (unknown) (unknown) Pulse Rate 50 L 50 (units (unknown) date) L unknown) (unknown) (no (unknown) (unknown) Pyridoxine 100 (units (unknown) date) Mg/Ml Vial IV 100 unknown) mg (unknown) (no (unknown) (unknown) Pyridoxine HCl 100 (units (unknown) date) mg 08/01/22 09:00 unknown) 08/02/22 09:55 (unknown) (no (unknown) (unknown) Q6HR SANDY (units (unkno wn) date) unknown) (unknown) (no (unknown) (unknown) RBC 3.71 L (units (unk nown) date) unknown) (unknown) (no (unknown) (unknown) RBC Morphology Not (units (unknown) date) Reportable unknown) (unknown) (no (unknown) (unknown) RDW 20.3 H (units (unk nown) date) unknown) (unknown) (no (unknown) (unknown) Recent events: (units (unknown) date) Patient's DT's unknown) improving. She was on Dex at 1 mcg/kg/hr this (unknown) (no (unknown) (unknown) Respiratory Rate (units (unknown) date) 16 15 unknown) (unknown) (no (unknown) (unknown) Respiratory Rate (units (unknown) date) 16 unknown) (unknown) (no (unknown) (unknown) Respiratory Rate (units (unknown) date) 17 16 unknown) (unknown) (no (unknown) (unknown) Respiratory Rate (units (unknown) date) 18 22 unknown) (unknown) (no (unknown) (unknown) Respiratory Rate (units (unknown) date) 19 19 unknown) (unknown) (no (unknown) (unknown) Respiratory Rate (units (unknown) date) 19 unknown) (unknown) (no (unknown) (unknown) Respiratory Rate (units (unknown) date) 20 17 unknown) (unknown) (no (unknown) (unknown) Signed By: (units (unk nown) date) unknown) (unknown) (no (unknown) (unknown) Sodium 134 L (units (u nknown) date) unknown) (unknown) (no (unknown) (unknown) Subjective (units (unk nown) date) unknown) (unknown) (no (unknown) (unknown) TITRATE SANDY 13.494 (units (unknown) date) mls/hr unknown) (unknown) (no (unknown) (unknown) Teleintensivist (units (unknown) date) Progress Note unknown) (unknown) (no (unknown) (unknown) Temperature 97.7 F (units (unknown) date) unknown) (unknown) (no (unknown) (unknown) Temperature 98.7 F (units (unknown) date) unknown) (unknown) (no (unknown) (unknown) Temperature (units (un known) date) unknown) (unknown) (no (unknown) (unknown) Thiamine HCl 100 (units (unknown) date) mg/ Sodium 101 mls unknown) @ 404 mls/hr 08/01/22 09:00 08/02/22 (unknown) (no (unknown) (unknown) Trade Name Freq (units (unknown) date) PRN Reason Stop unknown) Dose Admin (unknown) (no (unknown) (unknown) Visit Medications (units (unknown) date) (administered) unknown) (unknown) (no (unknown) (unknown) Vital Signs (units (un known) date) unknown) (unknown) (no (unknown) (unknown) WBC 4.9 (units (unkno wn) date) unknown) (unknown) (no (unknown) (unknown) [Embedded Image (units (unknown) date) Not Available] unknown) (unknown) (no (unknown) (unknown) [Rx Confirmed (units ( unknown) date) 08/01/22] unknown) (unknown) (no (unknown) (unknown) dexmedeTOMIDine in (units (unknown) date) 0.9 % NaCL 400 mcg unknown) in 100 mls @ 26.989 mls/hr 08/01/22 (unknown) (no (unknown) (unknown) fluoxetine 10 mg (units (unknown) date) capsule 10 mg PO unknown) DAILY 07/13/22 [History Confirmed 08/01/22] (unknown) (no (unknown) (unknown) hydroxyzine HCl 50 (units (unknown) date) mg tablet 50 mg PO unknown) DAILY 07/13/22 [History Confirmed (unknown) (no (unknown) (unknown) morning but then (units (unknown) date) her IV was lost so unknown) she is currently off Dex. (unknown) (no (unknown) (unknown) multivitamin with (units (unknown) date) folic acid 400 mcg unknown) tablet (Tab-A-Kael) 1 tab PO DAILY #30 tabs (unknown) (no (unknown) (unknown) pantoprazole 40 mg (units (unknown) date) tablet,delayed unknown) release 40 mg PO 0700 #30 tabs 07/14/22 [Rx (unknown) (no (unknown) (unknown) quetiapine 300 mg (units (unknown) date) tablet 300 mg PO unknown) DAILY 07/13/22 [History Confirmed 08/01/22] (unknown) (no (unknown) (unknown) thiamine (units (unkno wn) date) mononitrate (vit unknown) B1) 100 mg tablet 100 mg PO DAILY #30 tabs 07/14/22 (unknown) (no (unknown) (unknown) withrawal and DTS. (units (unknown) date) PT. given ativan, unknown) phenobarb, and placed on precedex drip. Result panel [id number] (unknown) (no (unknown) (unknown) (no value) (units (unk nown) date) unknown) (unknown) (no (unknown) (unknown) (past 8 hours): (units (unknown) date) unknown) (unknown) (no (unknown) (unknown) -[place] (units (unkno wn) date) unknown) (unknown) (no (unknown) (unknown) [phone] (units (unkn own) date) unknown) (unknown) (no (unknown) (unknown) 01:00 08/03/22 (units (unknown) date) unknown) (unknown) (no (unknown) (unknown) 01:00 (units (unkno wn) date) unknown) (unknown) (no (unknown) (unknown) 01:30 08/03/22 (units (unknown) date) unknown) (unknown) (no (unknown) (unknown) 02:00 08/03/22 (units (unknown) date) unknown) (unknown) (no (unknown) (unknown) 02:00 (units (unkno wn) date) unknown) (unknown) (no (unknown) (unknown) 02:14 08/03/22 (units (unknown) date) unknown) (unknown) (no (unknown) (unknown) 02:30 08/03/22 (units (unknown) date) unknown) (unknown) (no (unknown) (unknown) 07/14/22 [Rx (units (u nknown) date) Confirmed 08/01/22] unknown) (unknown) (no (unknown) (unknown) 08/01/22] (units (unkn own) date) unknown) (unknown) (no (unknown) (unknown) 08/02/22 08/03/22 (units (unknown) date) 08/03/22 unknown) (unknown) (no (unknown) (unknown) 08/03/22 07:50 (units (unknown) date) unknown) (unknown) (no (unknown) (unknown) 08/03/22 (units (unkno wn) date) unknown) (unknown) (no (unknown) (unknown) 03:00 08/03/22 (units (unknown) date) unknown) (unknown) (no (unknown) (unknown) 03:00 (units (unkno wn) date) unknown) (unknown) (no (unknown) (unknown) 03:30 (units (unkno wn) date) unknown) (unknown) (no (unknown) (unknown) 03:44 08/03/22 (units (unknown) date) unknown) (unknown) (no (unknown) (unknown) 04:00 08/03/22 (units (unknown) date) unknown) (unknown) (no (unknown) (unknown) 04:30 (units (unkno wn) date) unknown) (unknown) (no (unknown) (unknown) 05:00 08/03/22 (units (unknown) date) unknown) (unknown) (no (unknown) (unknown) 05:30 (units (unkno wn) date) unknown) (unknown) (no (unknown) (unknown) 06:00 08/03/22 (units (unknown) date) unknown) (unknown) (no (unknown) (unknown) 06:30 (units (unkno wn) date) unknown) (unknown) (no (unknown) (unknown) 07:00 08/03/22 (units (unknown) date) unknown) (unknown) (no (unknown) (unknown) 07:00 (units (unkno wn) date) unknown) (unknown) (no (unknown) (unknown) 08:15 08/03/22 (units (unknown) date) 02:15 unknown) (unknown) (no (unknown) (unknown) 19:23 (units (unkno wn) date) unknown) (unknown) (no (unknown) (unknown) 2 MCG/KG/HR (units (un known) date) unknown) (unknown) (no (unknown) (unknown) 21:20 07:50 07:50 (units (unknown) date) unknown) (unknown) (no (unknown) (unknown) 22:23 (units (unkno wn) date) unknown) (unknown) (no (unknown) (unknown) Administration (units (unknown) date) unknown) (unknown) (no (unknown) (unknown) Age/Sex: 31 / F (units (unknown) date) unknown) (unknown) (no (unknown) (unknown) Alcohol Withdrawal (units (unknown) date) unknown) (unknown) (no (unknown) (unknown) Anisocytosis 1+ H (units (unknown) date) unknown) (unknown) (no (unknown) (unknown) Assessment + Plan (units (unknown) date) narrative: unknown) (unknown) (no (unknown) (unknown) Assessment + Plan (units (unknown) date) unknown) (unknown) (no (unknown) (unknown) Assessmet (units (unkn own) date) unknown) (unknown) (no (unknown) (unknown) BID SANDY (units (unkno wn) date) Administration unknown) (unknown) (no (unknown) (unknown) BUN 2 L (units (unkno wn) date) unknown) (unknown) (no (unknown) (unknown) BUN/Creatinine (units (unknown) date) Ratio 3.6 L unknown) (unknown) (no (unknown) (unknown) Baso # (Auto) 0 (units (unknown) date) unknown) (unknown) (no (unknown) (unknown) Baso % (Auto) 0.4 (units (unknown) date) unknown) (unknown) (no (unknown) (unknown) Blood Pressure (units (unknown) date) 122/76 unknown) (unknown) (no (unknown) (unknown) Blood Pressure (units (unknown) date) 126/83 unknown) (unknown) (no (unknown) (unknown) Blood Pressure (units (unknown) date) 126/88 unknown) (unknown) (no (unknown) (unknown) Blood Pressure (units (unknown) date) 128/80 unknown) (unknown) (no (unknown) (unknown) Blood Pressure (units (unknown) date) 128/83 unknown) (unknown) (no (unknown) (unknown) Blood Pressure (units (unknown) date) 130/81 unknown) (unknown) (no (unknown) (unknown) Blood Pressure (units (unknown) date) 138/77 unknown) (unknown) (no (unknown) (unknown) Blood Pressure (units (unknown) date) unknown) (unknown) (no (unknown) (unknown) CIWAPRN PRN (units (un known) date) Administration unknown) (unknown) (no (unknown) (unknown) CONT SANDY (units (unkno wn) date) Administration unknown) (unknown) (no (unknown) (unknown) Calcium 8.1 L (units ( unknown) date) unknown) (unknown) (no (unknown) (unknown) Carbon Dioxide 28 (units (unknown) date) unknown) (unknown) (no (unknown) (unknown) Chlordiazepoxide (units (unknown) date) 25 Mg Capsule PO unknown) Not Given (unknown) (no (unknown) (unknown) Chlordiazepoxide (units (unknown) date) HCl 50 mg 08/01/22 unknown) 12:00 08/03/22 06:38 (unknown) (no (unknown) (unknown) Chloride 101 (units (u nknown) date) unknown) (unknown) (no (unknown) (unknown) Chloride IV (units (un known) date) Infused unknown) (unknown) (no (unknown) (unknown) Confirmed (units (unkn own) date) 08/01/22] unknown) (unknown) (no (unknown) (unknown) Consent obtained (units (unknown) date) for unknown) 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: Yes (unknown) (no (unknown) (unknown) Creatinine 0.55 (units (unknown) date) unknown) (unknown) (no (unknown) (unknown) Current (units (unkno wn) date) Medications unknown) (unknown) (no (unknown) (unknown) DAILY SANDY (units (unkn own) date) Administration unknown) (unknown) (no (unknown) (unknown) DAILY SANDY Infusion (units (unknown) date) unknown) (unknown) (no (unknown) (unknown) DAILY SANDY (units (unkn own) date) unknown) (unknown) (no (unknown) (unknown) : 1990 (units (unknown) date) Acct:[id number] unknown) (unknown) (no (unknown) (unknown) Date of Service: (units (unknown) date) 08/01/22 unknown) (unknown) (no (unknown) (unknown) Dextrose (units (o wn) date) 5%-Lactated Ringers unknown) IV 84 mls/hr (unknown) (no (unknown) (unknown) Dextrose/Lactated (units (unknown) date) Ringer's 1,000 mls unknown) @ 84 mls/hr 08/01/22 20:15 08/02/22 (unknown) (no (unknown) (unknown) ETOH (units (unkno wn) date) withdrawal/DTs unknown) (unknown) (no (unknown) (unknown) Enoxaparin 40 (units ( unknown) date) Mg/0.4 Ml Syringe unknown) SUBCUT 40 mg (unknown) (no (unknown) (unknown) Enoxaparin Sodium (units (unknown) date) 40 mg 08/02/22 unknown) 09:45 08/02/22 10:14 (unknown) (no (unknown) (unknown) Eos # (Auto) 100 (units (unknown) date) unknown) (unknown) (no (unknown) (unknown) Eos % (Auto) 2.5 (units (unknown) date) unknown) (unknown) (no (unknown) (unknown) Estimated GFR > 60 (units (unknown) date) unknown) (unknown) (no (unknown) (unknown) Exam Narrative: (units (unknown) date) unknown) (unknown) (no (unknown) (unknown) Exam (units (unkno wn) date) unknown) (unknown) (no (unknown) (unknown) Fluoxetine 10 Mg (units (unknown) date) Capsule PO Not unknown) Given (unknown) (no (unknown) (unknown) Fluoxetine HCl 10 (units (unknown) date) mg 08/01/22 09:00 unknown) 08/02/22 08:11 (unknown) (no (unknown) (unknown) Folic Acid 1 Mg (units (unknown) date) Tablet PO Not Given unknown) (unknown) (no (unknown) (unknown) Folic Acid 1 mg (units (unknown) date) 08/01/22 09:00 unknown) 08/02/22 08:11 (unknown) (no (unknown) (unknown) Generic Name Dose (units (unknown) date) Route Start Last unknown) Admin (unknown) (no (unknown) (unknown) Glucose 131 H (units ( unknown) date) unknown) (unknown) (no (unknown) (unknown) Hct 29.7 L (units (unk nown) date) unknown) (unknown) (no (unknown) (unknown) Hgb 10.0 L (units (unk nown) date) unknown) (unknown) (no (unknown) (unknown) Home Medications (units (unknown) date) unknown) (unknown) (no (unknown) (unknown) Hydroxyzine (units (un known) date) Pamoate 25 Mg unknown) Capsule PO Not Given (unknown) (no (unknown) (unknown) Hydroxyzine (units (un known) date) Pamoate 50 mg unknown) 08/01/22 09:00 08/02/22 08:11 (unknown) (no (unknown) (unknown) Interval history: (units (unknown) date) unknown) (unknown) (no (unknown) (unknown) [facility] (units (unknown) date) [address] unknown) [place] [address] (unknown) (no (unknown) (unknown) Laboratory Results (units (unknown) date) - last 24 hr unknown) (unknown) (no (unknown) (unknown) Labs (units (unkno wn) date) unknown) (unknown) (no (unknown) (unknown) Labs: (units (unkno wn) date) unknown) (unknown) (no (unknown) (unknown) Lorazepam 0 mg (units (unknown) date) 08/01/22 08:00 unknown) 08/02/22 12:31 (unknown) (no (unknown) (unknown) Lorazepam 2 Mg/Ml (units (unknown) date) Inj IV 2 mg unknown) (unknown) (no (unknown) (unknown) Lymph # (Auto) (units (unknown) date) 1300 unknown) (unknown) (no (unknown) (unknown) Lymph % (Auto) (units (unknown) date) 26.4 unknown) (unknown) (no (unknown) (unknown) MCH 27.0 (units (unkno wn) date) unknown) (unknown) (no (unknown) (unknown) MCHC 33.7 (units (unkn own) date) unknown) (unknown) (no (unknown) (unknown) MCV 80.1 (units (unkno wn) date) unknown) (unknown) (no (unknown) (unknown) Medications: (units (u nknown) date) unknown) (unknown) (no (unknown) (unknown) Yates # (Auto) 400 (units (unknown) date) unknown) (unknown) (no (unknown) (unknown) Yates % (Auto) 7.7 (units (unknown) date) unknown) (unknown) (no (unknown) (unknown) Multivitamin 1 (units (unknown) date) Tablet PO Not Given unknown) (unknown) (no (unknown) (unknown) Multivitamins 1 (units (unknown) date) tab 08/01/22 09:00 unknown) 08/02/22 08:11 (unknown) (no (unknown) (unknown) Narrative (units (unkn own) date) unknown) (unknown) (no (unknown) (unknown) Neut # (Auto) 3100 (units (unknown) date) unknown) (unknown) (no (unknown) (unknown) Neut % (Auto) 63.0 (units (unknown) date) unknown) (unknown) (no (unknown) (unknown) Objective (units (unkn own) date) unknown) (unknown) (no (unknown) (unknown) Oxygen Delivery (units (unknown) date) Method Room Air unknown) (unknown) (no (unknown) (unknown) Oxygen Delivery (units (unknown) date) Method unknown) (unknown) (no (unknown) (unknown) Oxygen Flow Rate 0 (units (unknown) date) unknown) (unknown) (no (unknown) (unknown) Pantoprazole 40 Mg (units (unknown) date) Vial IV 40 mg unknown) (unknown) (no (unknown) (unknown) Pantoprazole (units (u nknown) date) Sodium 40 mg unknown) 08/01/22 09:00 08/02/22 09:55 (unknown) (no (unknown) (unknown) Patient Location: (units (unknown) date) ICU unknown) (unknown) (no (unknown) (unknown) Patient summary: (units (unknown) date) 31 yo woman with unknown) PMH Of ETOH abuse admitted 08/01/22 for ETOH (unknown) (no (unknown) (unknown) Patient: (units (unkno wn) date) Sarah Connors R unknown) MR#: [id number] (unknown) (no (unknown) (unknown) Pat[place] seen over 2 (units (unknown) date) way audio-visual unknown) system. She is alert, calm, and cooperative (unknown) (no (unknown) (unknown) Phenobarbital 60 (units (unknown) date) mg 08/01/22 09:00 unknown) 08/02/22 21:29 (unknown) (no (unknown) (unknown) Phenobarbital 65 (units (unknown) date) Mg/Ml Vial IV 60 mg unknown) (unknown) (no (unknown) (unknown) Plan (units (unkno wn) date) unknown) (unknown) (no (unknown) (unknown) Plt Count 155 (units ( unknown) date) unknown) (unknown) (no (unknown) (unknown) Potassium 3.8 3.4 (units (unknown) date) unknown) (unknown) (no (unknown) (unknown) Precedex IV 1 (units ( unknown) date) mcg/kg/hr unknown) (unknown) (no (unknown) (unknown) Protocol (units (unkno wn) date) unknown) (unknown) (no (unknown) (unknown) Provider: Riki Clay (units (unknown) date) Peg SÁNCHEZ unknown) (unknown) (no (unknown) (unknown) Pulse Oximetry 94 (units (unknown) date) unknown) (unknown) (no (unknown) (unknown) Pulse Oximetry 95 (units (unknown) date) 98 unknown) (unknown) (no (unknown) (unknown) Pulse Oximetry 98 (units (unknown) date) 98 unknown) (unknown) (no (unknown) (unknown) Pulse Oximetry 98 (units (unknown) date) unknown) (unknown) (no (unknown) (unknown) Pulse Oximetry 99 (units (unknown) date) 100 unknown) (unknown) (no (unknown) (unknown) Pulse Oximetry 99 (units (unknown) date) 98 unknown) (unknown) (no (unknown) (unknown) Pulse Oximetry 99 (units (unknown) date) unknown) (unknown) (no (unknown) (unknown) Pulse Rate 45 L (units (unknown) date) unknown) (unknown) (no (unknown) (unknown) Pulse Rate 46 L 46 (units (unknown) date) L unknown) (unknown) (no (unknown) (unknown) Pulse Rate 47 L 48 (units (unknown) date) L unknown) (unknown) (no (unknown) (unknown) Pulse Rate 47 L (units (unknown) date) unknown) (unknown) (no (unknown) (unknown) Pulse Rate 48 L (units (unknown) date) unknown) (unknown) (no (unknown) (unknown) Pulse Rate 49 L 47 (units (unknown) date) L unknown) (unknown) (no (unknown) (unknown) Pulse Rate 49 L 49 (units (unknown) date) L unknown) (unknown) (no (unknown) (unknown) Pulse Rate 50 L 50 (units (unknown) date) L unknown) (unknown) (no (unknown) (unknown) Pyridoxine 100 (units (unknown) date) Mg/Ml Vial IV 100 unknown) mg (unknown) (no (unknown) (unknown) Pyridoxine HCl 100 (units (unknown) date) mg 08/01/22 09:00 unknown) 08/02/22 09:55 (unknown) (no (unknown) (unknown) Q6HR SANDY (units (unkno wn) date) unknown) (unknown) (no (unknown) (unknown) RBC 3.71 L (units (unk nown) date) unknown) (unknown) (no (unknown) (unknown) RBC Morphology Not (units (unknown) date) Reportable unknown) (unknown) (no (unknown) (unknown) RDW 20.3 H (units (unk nown) date) unknown) (unknown) (no (unknown) (unknown) Recent events: (units (unknown) date) Patient's DT's unknown) improving. She was on Dex at 1 mcg/kg/hr this (unknown) (no (unknown) (unknown) Respiratory Rate (units (unknown) date) 16 15 unknown) (unknown) (no (unknown) (unknown) Respiratory Rate (units (unknown) date) 16 unknown) (unknown) (no (unknown) (unknown) Respiratory Rate (units (unknown) date) 17 16 unknown) (unknown) (no (unknown) (unknown) Respiratory Rate (units (unknown) date) 18 22 unknown) (unknown) (no (unknown) (unknown) Respiratory Rate (units (unknown) date) 19 19 unknown) (unknown) (no (unknown) (unknown) Respiratory Rate (units (unknown) date) 19 unknown) (unknown) (no (unknown) (unknown) Respiratory Rate (units (unknown) date) 20 17 unknown) (unknown) (no (unknown) (unknown) Signed By: (units (unk nown) date) unknown) (unknown) (no (unknown) (unknown) Sodium 134 L (units (u nknown) date) unknown) (unknown) (no (unknown) (unknown) Subjective (units (unk nown) date) unknown) (unknown) (no (unknown) (unknown) TITRATE SANDY 13.494 (units (unknown) date) mls/hr unknown) (unknown) (no (unknown) (unknown) Teleintensivist (units (unknown) date) Progress Note unknown) (unknown) (no (unknown) (unknown) Temperature 97.7 F (units (unknown) date) unknown) (unknown) (no (unknown) (unknown) Temperature 98.7 F (units (unknown) date) unknown) (unknown) (no (unknown) (unknown) Temperature (units (un known) date) unknown) (unknown) (no (unknown) (unknown) Thiamine HCl 100 (units (unknown) date) mg/ Sodium 101 mls unknown) @ 404 mls/hr 08/01/22 09:00 08/02/22 (unknown) (no (unknown) (unknown) Trade Name Freq (units (unknown) date) PRN Reason Stop unknown) Dose Admin (unknown) (no (unknown) (unknown) Visit Medications (units (unknown) date) (administered) unknown) (unknown) (no (unknown) (unknown) Vital Signs (units (un known) date) unknown) (unknown) (no (unknown) (unknown) WBC 4.9 (units (unkno wn) date) unknown) (unknown) (no (unknown) (unknown) [Embedded Image (units (unknown) date) Not Available] unknown) (unknown) (no (unknown) (unknown) [Rx Confirmed (units ( unknown) date) 08/01/22] unknown) (unknown) (no (unknown) (unknown) dexmedeTOMIDine in (units (unknown) date) 0.9 % NaCL 400 mcg unknown) in 100 mls @ 26.989 mls/hr 08/01/22 (unknown) (no (unknown) (unknown) fluoxetine 10 mg (units (unknown) date) capsule 10 mg PO unknown) DAILY 07/13/22 [History Confirmed 08/01/22] (unknown) (no (unknown) (unknown) hydroxyzine HCl 50 (units (unknown) date) mg tablet 50 mg PO unknown) DAILY 07/13/22 [History Confirmed (unknown) (no (unknown) (unknown) morning but then (units (unknown) date) her IV was lost so unknown) she is currently off Dex. (unknown) (no (unknown) (unknown) multivitamin with (units (unknown) date) folic acid 400 mcg unknown) tablet (Tab-A-Kael) 1 tab PO DAILY #30 tabs (unknown) (no (unknown) (unknown) pantoprazole 40 mg (units (unknown) date) tablet,delayed unknown) release 40 mg PO 0700 #30 tabs 07/14/22 [Rx (unknown) (no (unknown) (unknown) quetiapine 300 mg (units (unknown) date) tablet 300 mg PO unknown) DAILY 07/13/22 [History Confirmed 08/01/22] (unknown) (no (unknown) (unknown) thiamine (units (unkno wn) date) mononitrate (vit unknown) B1) 100 mg tablet 100 mg PO DAILY #30 tabs 07/14/22 (unknown) (no (unknown) (unknown) withrawal and DTS. (units (unknown) date) PT. given ativan, unknown) phenobarb, and placed on precedex drip. Result panel [id number] (unknown) (no (unknown) (unknown) (no value) (units (unk nown) date) unknown) (unknown) (no (unknown) (unknown) (past 8 hours): (units (unknown) date) unknown) (unknown) (no (unknown) (unknown) - ativan prn high (units (unknown) date) CIWA score unknown) (unknown) (no (unknown) (unknown) -Librium 50 mg Q6h (units (unknown) date) unknown) (unknown) (no (unknown) (unknown) -agree with (units (un known) date) stopping scheduled unknown) Phenobarb for now as DTs improved but if severe (unknown) (no (unknown) (unknown) -restart Precedex (units (unknown) date) drip as needed once unknown) IV access obtained (unknown) (no (unknown) (unknown) -start Gabapentin (units (unknown) date) unknown) (unknown) (no (unknown) (unknown) -start PO diet (units (unknown) date) given improved unknown) mental status (unknown) (no (unknown) (unknown) [id number] (units (unkn own) date) unknown) (unknown) (no (unknown) (unknown) 01:00 08/03/22 (units (unknown) date) unknown) (unknown) (no (unknown) (unknown) 01:00 (units (unkno wn) date) unknown) (unknown) (no (unknown) (unknown) 01:30 08/03/22 (units (unknown) date) unknown) (unknown) (no (unknown) (unknown) 02:00 08/03/22 (units (unknown) date) unknown) (unknown) (no (unknown) (unknown) 02:00 (units (unkno wn) date) unknown) (unknown) (no (unknown) (unknown) 02:14 08/03/22 (units (unknown) date) unknown) (unknown) (no (unknown) (unknown) 02:30 08/03/22 (units (unknown) date) unknown) (unknown) (no (unknown) (unknown) 07/14/22 [Rx (units (u nknown) date) Confirmed 08/01/22] unknown) (unknown) (no (unknown) (unknown) 08/01/22] (units (unkn own) date) unknown) (unknown) (no (unknown) (unknown) 08/02/22 08/03/22 (units (unknown) date) 08/03/22 unknown) (unknown) (no (unknown) (unknown) 08/03/22 07:50 (units (unknown) date) unknown) (unknown) (no (unknown) (unknown) 08/03/22 (units (unkno wn) date) unknown) (unknown) (no (unknown) (unknown) 03:00 08/03/22 (units (unknown) date) unknown) (unknown) (no (unknown) (unknown) 03:00 (units (unkno wn) date) unknown) (unknown) (no (unknown) (unknown) 03:30 (units (unkno wn) date) unknown) (unknown) (no (unknown) (unknown) 03:44 08/03/22 (units (unknown) date) unknown) (unknown) (no (unknown) (unknown) 04:00 08/03/22 (units (unknown) date) unknown) (unknown) (no (unknown) (unknown) 04:30 (units (unkno wn) date) unknown) (unknown) (no (unknown) (unknown) 05:00 08/03/22 (units (unknown) date) unknown) (unknown) (no (unknown) (unknown) 05:30 (units (unkno wn) date) unknown) (unknown) (no (unknown) (unknown) 06:00 08/03/22 (units (unknown) date) unknown) (unknown) (no (unknown) (unknown) 06:30 (units (unkno wn) date) unknown) (unknown) (no (unknown) (unknown) 07:00 08/03/22 (units (unknown) date) unknown) (unknown) (no (unknown) (unknown) 07:00 (units (unkno wn) date) unknown) (unknown) (no (unknown) (unknown) 08:15 08/03/22 (units (unknown) date) 02:15 unknown) (unknown) (no (unknown) (unknown) 19:23 (units (unkno wn) date) unknown) (unknown) (no (unknown) (unknown) 2 MCG/KG/HR (units (un known) date) unknown) (unknown) (no (unknown) (unknown) 21:20 07:50 07:50 (units (unknown) date) unknown) (unknown) (no (unknown) (unknown) 22:23 (units (unkno wn) date) unknown) (unknown) (no (unknown) (unknown) Administration (units (unknown) date) unknown) (unknown) (no (unknown) (unknown) Age/Sex: 31 / F (units (unknown) date) unknown) (unknown) (no (unknown) (unknown) Alcohol Withdrawal (units (unknown) date) unknown) (unknown) (no (unknown) (unknown) Anisocytosis 1+ H (units (unknown) date) unknown) (unknown) (no (unknown) (unknown) Assessment + Plan (units (unknown) date) narrative: unknown) (unknown) (no (unknown) (unknown) Assessment + Plan (units (unknown) date) unknown) (unknown) (no (unknown) (unknown) Assessmet (units (unkn own) date) unknown) (unknown) (no (unknown) (unknown) BID SANDY (units (unkno wn) date) Administration unknown) (unknown) (no (unknown) (unknown) BUN 2 L (units (unkno wn) date) unknown) (unknown) (no (unknown) (unknown) BUN/Creatinine (units (unknown) date) Ratio 3.6 L unknown) (unknown) (no (unknown) (unknown) Baso # (Auto) 0 (units (unknown) date) unknown) (unknown) (no (unknown) (unknown) Baso % (Auto) 0.4 (units (unknown) date) unknown) (unknown) (no (unknown) (unknown) Blood Pressure (units (unknown) date) 122/76 unknown) (unknown) (no (unknown) (unknown) Blood Pressure (units (unknown) date) 126/83 unknown) (unknown) (no (unknown) (unknown) Blood Pressure (units (unknown) date) 126/88 unknown) (unknown) (no (unknown) (unknown) Blood Pressure (units (unknown) date) 128/80 unknown) (unknown) (no (unknown) (unknown) Blood Pressure (units (unknown) date) 128/83 unknown) (unknown) (no (unknown) (unknown) Blood Pressure (units (unknown) date) 130/81 unknown) (unknown) (no (unknown) (unknown) Blood Pressure (units (unknown) date) 138/77 unknown) (unknown) (no (unknown) (unknown) Blood Pressure (units (unknown) date) unknown) (unknown) (no (unknown) (unknown) CIWAPRN PRN (units (un known) date) Administration unknown) (unknown) (no (unknown) (unknown) CONT SANDY (units (unkno wn) date) Administration unknown) (unknown) (no (unknown) (unknown) Calcium 8.1 L (units ( unknown) date) unknown) (unknown) (no (unknown) (unknown) Carbon Dioxide 28 (units (unknown) date) unknown) (unknown) (no (unknown) (unknown) Chlordiazepoxide (units (unknown) date) 25 Mg Capsule PO unknown) Not Given (unknown) (no (unknown) (unknown) Chlordiazepoxide (units (unknown) date) HCl 50 mg 08/01/22 unknown) 12:00 08/03/22 06:38 (unknown) (no (unknown) (unknown) Chloride 101 (units (u nknown) date) unknown) (unknown) (no (unknown) (unknown) Chloride IV (units (un known) date) Infused unknown) (unknown) (no (unknown) (unknown) Confirmed (units (unkn own) date) 08/01/22] unknown) (unknown) (no (unknown) (unknown) Consent obtained (units (unknown) date) for unknown) 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: Yes (unknown) (no (unknown) (unknown) Creatinine 0.55 (units (unknown) date) unknown) (unknown) (no (unknown) (unknown) Current (units (unkno wn) date) Medications unknown) (unknown) (no (unknown) (unknown) DAILY SANDY (units (unkn own) date) Administration unknown) (unknown) (no (unknown) (unknown) DAILY SANDY Infusion (units (unknown) date) unknown) (unknown) (no (unknown) (unknown) DAILY SANDY (units (unkn own) date) unknown) (unknown) (no (unknown) (unknown) : 1990 (units (unknown) date) Acct:[id number] unknown) (unknown) (no (unknown) (unknown) Date of Service: (units (unknown) date) 08/01/22 unknown) (unknown) (no (unknown) (unknown) Dextrose (units (unkno wn) date) 5%-Lactated Ringers unknown) IV 84 mls/hr (unknown) (no (unknown) (unknown) Dextrose/Lactated (units (unknown) date) Ringer's 1,000 mls unknown) @ 84 mls/hr 08/01/22 20:15 08/02/22 (unknown) (no (unknown) (unknown) ETOH (units (unkno wn) date) withdrawal/DTs unknown) (unknown) (no (unknown) (unknown) Enoxaparin 40 (units ( unknown) date) Mg/0.4 Ml Syringe unknown) SUBCUT 40 mg (unknown) (no (unknown) (unknown) Enoxaparin Sodium (units (unknown) date) 40 mg 08/02/22 unknown) 09:45 08/02/22 10:14 (unknown) (no (unknown) (unknown) Eos # (Auto) 100 (units (unknown) date) unknown) (unknown) (no (unknown) (unknown) Eos % (Auto) 2.5 (units (unknown) date) unknown) (unknown) (no (unknown) (unknown) Estimated GFR > 60 (units (unknown) date) unknown) (unknown) (no (unknown) (unknown) Exam Narrative: (units (unknown) date) unknown) (unknown) (no (unknown) (unknown) Exam (units (unkno wn) date) unknown) (unknown) (no (unknown) (unknown) Fluoxetine 10 Mg (units (unknown) date) Capsule PO Not unknown) Given (unknown) (no (unknown) (unknown) Fluoxetine HCl 10 (units (unknown) date) mg 08/01/22 09:00 unknown) 08/02/22 08:11 (unknown) (no (unknown) (unknown) Folic Acid 1 Mg (units (unknown) date) Tablet PO Not Given unknown) (unknown) (no (unknown) (unknown) Folic Acid 1 mg (units (unknown) date) 08/01/22 09:00 unknown) 08/02/22 08:11 (unknown) (no (unknown) (unknown) Generic Name Dose (units (unknown) date) Route Start Last unknown) Admin (unknown) (no (unknown) (unknown) Glucose 131 H (units ( unknown) date) unknown) (unknown) (no (unknown) (unknown) Hct 29.7 L (units (unk nown) date) unknown) (unknown) (no (unknown) (unknown) Hgb 10.0 L (units (unk nown) date) unknown) (unknown) (no (unknown) (unknown) Home Medications (units (unknown) date) unknown) (unknown) (no (unknown) (unknown) Hydroxyzine (units (un known) date) Pamoate 25 Mg unknown) Capsule PO Not Given (unknown) (no (unknown) (unknown) Hydroxyzine (units (un known) date) Pamoate 50 mg unknown) 08/01/22 09:00 08/02/22 08:11 (unknown) (no (unknown) (unknown) Interval history: (units (unknown) date) unknown) (unknown) (no (unknown) (unknown) [facility] (units (unknown) date) [address] [place] [address] unknown) [place] [address] (unknown) (no (unknown) (unknown) Laboratory Results (units (unknown) date) - last 24 hr unknown) (unknown) (no (unknown) (unknown) Labs (units (unkno wn) date) unknown) (unknown) (no (unknown) (unknown) Labs: (units (unkno wn) date) unknown) (unknown) (no (unknown) (unknown) Lorazepam 0 mg (units (unknown) date) 08/01/22 08:00 unknown) 08/02/22 12:31 (unknown) (no (unknown) (unknown) Lorazepam 2 Mg/Ml (units (unknown) date) Inj IV 2 mg unknown) (unknown) (no (unknown) (unknown) Lymph # (Auto) (units (unknown) date) 1300 unknown) (unknown) (no (unknown) (unknown) Lymph % (Auto) (units (unknown) date) 26.4 unknown) (unknown) (no (unknown) (unknown) MCH 27.0 (units (unkno wn) date) unknown) (unknown) (no (unknown) (unknown) MCHC 33.7 (units (unkn own) date) unknown) (unknown) (no (unknown) (unknown) MCV 80.1 (units (unkno wn) date) unknown) (unknown) (no (unknown) (unknown) Medications: (units (u nknown) date) unknown) (unknown) (no (unknown) (unknown) Yates # (Auto) 400 (units (unknown) date) unknown) (unknown) (no (unknown) (unknown) Yates % (Auto) 7.7 (units (unknown) date) unknown) (unknown) (no (unknown) (unknown) Multivitamin 1 (units (unknown) date) Tablet PO Not Given unknown) (unknown) (no (unknown) (unknown) Multivitamins 1 (units (unknown) date) tab 08/01/22 09:00 unknown) 08/02/22 08:11 (unknown) (no (unknown) (unknown) Narrative (units (unkn own) date) unknown) (unknown) (no (unknown) (unknown) Neut # (Auto) 3100 (units (unknown) date) unknown) (unknown) (no (unknown) (unknown) Neut % (Auto) 63.0 (units (unknown) date) unknown) (unknown) (no (unknown) (unknown) Objective (units (unkn own) date) unknown) (unknown) (no (unknown) (unknown) Oxygen Delivery (units (unknown) date) Method Room Air unknown) (unknown) (no (unknown) (unknown) Oxygen Delivery (units (unknown) date) Method unknown) (unknown) (no (unknown) (unknown) Oxygen Flow Rate 0 (units (unknown) date) unknown) (unknown) (no (unknown) (unknown) PPx: (units (unkno wn) date) unknown) (unknown) (no (unknown) (unknown) Pantoprazole 40 Mg (units (unknown) date) Vial IV 40 mg unknown) (unknown) (no (unknown) (unknown) Pantoprazole (units (u nknown) date) Sodium 40 mg unknown) 08/01/22 09:00 08/02/22 09:55 (unknown) (no (unknown) (unknown) Patient Location: (units (unknown) date) ICU unknown) (unknown) (no (unknown) (unknown) Patient summary: (units (unknown) date) 31 yo woman with unknown) PMH Of ETOH abuse admitted 08/01/22 for ETOH (unknown) (no (unknown) (unknown) Patient: (units (unkno wn) date) DorySarah R unknown) MR#: M (unknown) (no (unknown) (unknown) Patinet seen over 2 (units (unknown) date) way audio-visual unknown) system. She is alert, calm, and cooperative (unknown) (no (unknown) (unknown) Phenobarbital 60 (units (unknown) date) mg 08/01/22 09:00 unknown) 08/02/22 21:29 (unknown) (no (unknown) (unknown) Phenobarbital 65 (units (unknown) date) Mg/Ml Vial IV 60 mg unknown) (unknown) (no (unknown) (unknown) Plan (units (unkno wn) date) unknown) (unknown) (no (unknown) (unknown) Plt Count 155 (units ( unknown) date) unknown) (unknown) (no (unknown) (unknown) Potassium 3.8 3.4 (units (unknown) date) unknown) (unknown) (no (unknown) (unknown) Precedex IV 1 (units ( unknown) date) mcg/kg/hr unknown) (unknown) (no (unknown) (unknown) Protocol (units (unkno wn) date) unknown) (unknown) (no (unknown) (unknown) Provider: Riki Clay (units (unknown) date) Peg SÁNCHEZ unknown) (unknown) (no (unknown) (unknown) Pulse Oximetry 94 (units (unknown) date) unknown) (unknown) (no (unknown) (unknown) Pulse Oximetry 95 (units (unknown) date) 98 unknown) (unknown) (no (unknown) (unknown) Pulse Oximetry 98 (units (unknown) date) 98 unknown) (unknown) (no (unknown) (unknown) Pulse Oximetry 98 (units (unknown) date) unknown) (unknown) (no (unknown) (unknown) Pulse Oximetry 99 (units (unknown) date) 100 unknown) (unknown) (no (unknown) (unknown) Pulse Oximetry 99 (units (unknown) date) 98 unknown) (unknown) (no (unknown) (unknown) Pulse Oximetry 99 (units (unknown) date) unknown) (unknown) (no (unknown) (unknown) Pulse Rate 45 L (units (unknown) date) unknown) (unknown) (no (unknown) (unknown) Pulse Rate 46 L 46 (units (unknown) date) L unknown) (unknown) (no (unknown) (unknown) Pulse Rate 47 L 48 (units (unknown) date) L unknown) (unknown) (no (unknown) (unknown) Pulse Rate 47 L (units (unknown) date) unknown) (unknown) (no (unknown) (unknown) Pulse Rate 48 L (units (unknown) date) unknown) (unknown) (no (unknown) (unknown) Pulse Rate 49 L 47 (units (unknown) date) L unknown) (unknown) (no (unknown) (unknown) Pulse Rate 49 L 49 (units (unknown) date) L unknown) (unknown) (no (unknown) (unknown) Pulse Rate 50 L 50 (units (unknown) date) L unknown) (unknown) (no (unknown) (unknown) Pyridoxine 100 (units (unknown) date) Mg/Ml Vial IV 100 unknown) mg (unknown) (no (unknown) (unknown) Pyridoxine HCl 100 (units (unknown) date) mg 08/01/22 09:00 unknown) 08/02/22 09:55 (unknown) (no (unknown) (unknown) Q6HR SANDY (units (unkno wn) date) unknown) (unknown) (no (unknown) (unknown) RBC 3.71 L (units (unk nown) date) unknown) (unknown) (no (unknown) (unknown) RBC Morphology Not (units (unknown) date) Reportable unknown) (unknown) (no (unknown) (unknown) RDW 20.3 H (units (unk nown) date) unknown) (unknown) (no (unknown) (unknown) Recent events: (units (unknown) date) Patient's DT's unknown) improving. She was on Dex at 1 mcg/kg/hr this (unknown) (no (unknown) (unknown) Respiratory Rate (units (unknown) date) 16 15 unknown) (unknown) (no (unknown) (unknown) Respiratory Rate (units (unknown) date) 16 unknown) (unknown) (no (unknown) (unknown) Respiratory Rate (units (unknown) date) 17 16 unknown) (unknown) (no (unknown) (unknown) Respiratory Rate (units (unknown) date) 18 22 unknown) (unknown) (no (unknown) (unknown) Respiratory Rate (units (unknown) date) 19 19 unknown) (unknown) (no (unknown) (unknown) Respiratory Rate (units (unknown) date) 19 unknown) (unknown) (no (unknown) (unknown) Respiratory Rate (units (unknown) date) 20 17 unknown) (unknown) (no (unknown) (unknown) Signed By: (units (unk nown) date) unknown) (unknown) (no (unknown) (unknown) Sodium 134 L (units (u nknown) date) unknown) (unknown) (no (unknown) (unknown) Subjective (units (unk nown) date) unknown) (unknown) (no (unknown) (unknown) TITRATE SANDY 13.494 (units (unknown) date) mls/hr unknown) (unknown) (no (unknown) (unknown) Teleintensivist (units (unknown) date) Progress Note unknown) (unknown) (no (unknown) (unknown) Temperature 97.7 F (units (unknown) date) unknown) (unknown) (no (unknown) (unknown) Temperature 98.7 F (units (unknown) date) unknown) (unknown) (no (unknown) (unknown) Temperature (units (un known) date) unknown) (unknown) (no (unknown) (unknown) Thiamine HCl 100 (units (unknown) date) mg/ Sodium 101 mls unknown) @ 404 mls/hr 08/01/22 09:00 08/02/22 (unknown) (no (unknown) (unknown) Trade Name Freq (units (unknown) date) PRN Reason Stop unknown) Dose Admin (unknown) (no (unknown) (unknown) Visit Medications (units (unknown) date) (administered) unknown) (unknown) (no (unknown) (unknown) Vital Signs (units (un known) date) unknown) (unknown) (no (unknown) (unknown) WBC 4.9 (units (unkno wn) date) unknown) (unknown) (no (unknown) (unknown) [Embedded Image (units (unknown) date) Not Available] unknown) (unknown) (no (unknown) (unknown) [Rx Confirmed (units ( unknown) date) 08/01/22] unknown) (unknown) (no (unknown) (unknown) agitation develops (units (unknown) date) later can consider unknown) additional doses of Phenobarn prn (unknown) (no (unknown) (unknown) dexmedeTOMIDine in (units (unknown) date) 0.9 % NaCL 400 mcg unknown) in 100 mls @ 26.989 mls/hr 08/01/22 (unknown) (no (unknown) (unknown) fluoxetine 10 mg (units (unknown) date) capsule 10 mg PO unknown) DAILY 07/13/22 [History Confirmed 08/01/22] (unknown) (no (unknown) (unknown) hydroxyzine HCl 50 (units (unknown) date) mg tablet 50 mg PO unknown) DAILY 07/13/22 [History Confirmed (unknown) (no (unknown) (unknown) morning but then (units (unknown) date) her IV was lost so unknown) she is currently off Dex. (unknown) (no (unknown) (unknown) multivitamin with (units (unknown) date) folic acid 400 mcg unknown) tablet (Tab-A-Kael) 1 tab PO DAILY #30 tabs (unknown) (no (unknown) (unknown) pantoprazole 40 mg (units (unknown) date) tablet,delayed unknown) release 40 mg PO 0700 #30 tabs 07/14/22 [Rx (unknown) (no (unknown) (unknown) quetiapine 300 mg (units (unknown) date) tablet 300 mg PO unknown) DAILY 07/13/22 [History Confirmed 08/01/22] (unknown) (no (unknown) (unknown) thiamine (units (unkno wn) date) mononitrate (vit unknown) B1) 100 mg tablet 100 mg PO DAILY #30 tabs 07/14/22 (unknown) (no (unknown) (unknown) withrawal and DTS. (units (unknown) date) PT. given ativan, unknown) phenobarb, and placed on precedex drip. Result panel [id number] (unknown) (no (unknown) (unknown) (no value) (units (unk nown) date) unknown) (unknown) (no (unknown) (unknown) (past 8 hours): (units (unknown) date) unknown) (unknown) (no (unknown) (unknown) - ativan prn high (units (unknown) date) CIWA score unknown) (unknown) (no (unknown) (unknown) -Librium 50 mg Q6h (units (unknown) date) unknown) (unknown) (no (unknown) (unknown) -agree with (units (un known) date) stopping scheduled unknown) Phenobarb for now as DTs improved but if severe (unknown) (no (unknown) (unknown) -restart Precedex (units (unknown) date) drip as needed once unknown) IV access obtained (unknown) (no (unknown) (unknown) -start Gabapentin (units (unknown) date) unknown) (unknown) (no (unknown) (unknown) -start PO diet (units (unknown) date) given improved unknown) mental status. If Po intake is good (unknown) (no (unknown) (unknown) -thiamine, folate, (units (unknown) date) MVI unknown) (unknown) (no (unknown) (unknown) [id number] (units (unkn own) date) unknown) (unknown) (no (unknown) (unknown) 01:00 08/03/22 (units (unknown) date) unknown) (unknown) (no (unknown) (unknown) 01:00 (units (unkno wn) date) unknown) (unknown) (no (unknown) (unknown) 01:30 08/03/22 (units (unknown) date) unknown) (unknown) (no (unknown) (unknown) 02:00 08/03/22 (units (unknown) date) unknown) (unknown) (no (unknown) (unknown) 02:00 (units (unkno wn) date) unknown) (unknown) (no (unknown) (unknown) 02:14 08/03/22 (units (unknown) date) unknown) (unknown) (no (unknown) (unknown) 02:30 08/03/22 (units (unknown) date) unknown) (unknown) (no (unknown) (unknown) 07/14/22 [Rx (units (u nknown) date) Confirmed 08/01/22] unknown) (unknown) (no (unknown) (unknown) 08/01/22] (units (unkn own) date) unknown) (unknown) (no (unknown) (unknown) 08/02/22 08/03/22 (units (unknown) date) 08/03/22 unknown) (unknown) (no (unknown) (unknown) 08/03/22 07:50 (units (unknown) date) unknown) (unknown) (no (unknown) (unknown) 08/03/22 (units (unkno wn) date) unknown) (unknown) (no (unknown) (unknown) 03:00 08/03/22 (units (unknown) date) unknown) (unknown) (no (unknown) (unknown) 03:00 (units (unkno wn) date) unknown) (unknown) (no (unknown) (unknown) 03:30 (units (unkno wn) date) unknown) (unknown) (no (unknown) (unknown) 03:44 08/03/22 (units (unknown) date) unknown) (unknown) (no (unknown) (unknown) 04:00 08/03/22 (units (unknown) date) unknown) (unknown) (no (unknown) (unknown) 04:30 (units (unkno wn) date) unknown) (unknown) (no (unknown) (unknown) 05:00 08/03/22 (units (unknown) date) unknown) (unknown) (no (unknown) (unknown) 05:30 (units (unkno wn) date) unknown) (unknown) (no (unknown) (unknown) 06:00 08/03/22 (units (unknown) date) unknown) (unknown) (no (unknown) (unknown) 06:30 (units (unkno wn) date) unknown) (unknown) (no (unknown) (unknown) 07:00 08/03/22 (units (unknown) date) unknown) (unknown) (no (unknown) (unknown) 07:00 (units (unkno wn) date) unknown) (unknown) (no (unknown) (unknown) 08:15 08/03/22 (units (unknown) date) 02:15 unknown) (unknown) (no (unknown) (unknown) 19:23 (units (unkno wn) date) unknown) (unknown) (no (unknown) (unknown) 2 MCG/KG/HR (units (un known) date) unknown) (unknown) (no (unknown) (unknown) 21:20 07:50 07:50 (units (unknown) date) unknown) (unknown) (no (unknown) (unknown) 22:23 (units (unkno wn) date) unknown) (unknown) (no (unknown) (unknown) Administration (units (unknown) date) unknown) (unknown) (no (unknown) (unknown) Age/Sex: 31 / F (units (unknown) date) unknown) (unknown) (no (unknown) (unknown) Alcohol Withdrawal (units (unknown) date) unknown) (unknown) (no (unknown) (unknown) Anisocytosis 1+ H (units (unknown) date) unknown) (unknown) (no (unknown) (unknown) Assessment + Plan (units (unknown) date) narrative: unknown) (unknown) (no (unknown) (unknown) Assessment + Plan (units (unknown) date) unknown) (unknown) (no (unknown) (unknown) Assessmet (units (unkn own) date) unknown) (unknown) (no (unknown) (unknown) BID SANDY (units (unkno wn) date) Administration unknown) (unknown) (no (unknown) (unknown) BUN 2 L (units (unkno wn) date) unknown) (unknown) (no (unknown) (unknown) BUN/Creatinine (units (unknown) date) Ratio 3.6 L unknown) (unknown) (no (unknown) (unknown) Baso # (Auto) 0 (units (unknown) date) unknown) (unknown) (no (unknown) (unknown) Baso % (Auto) 0.4 (units (unknown) date) unknown) (unknown) (no (unknown) (unknown) Blood Pressure (units (unknown) date) 122/76 unknown) (unknown) (no (unknown) (unknown) Blood Pressure (units (unknown) date) 126/83 unknown) (unknown) (no (unknown) (unknown) Blood Pressure (units (unknown) date) 126/88 unknown) (unknown) (no (unknown) (unknown) Blood Pressure (units (unknown) date) 128/80 unknown) (unknown) (no (unknown) (unknown) Blood Pressure (units (unknown) date) 128/83 unknown) (unknown) (no (unknown) (unknown) Blood Pressure (units (unknown) date) 130/81 unknown) (unknown) (no (unknown) (unknown) Blood Pressure (units (unknown) date) 138/77 unknown) (unknown) (no (unknown) (unknown) Blood Pressure (units (unknown) date) unknown) (unknown) (no (unknown) (unknown) CIWAPRN PRN (units (un known) date) Administration unknown) (unknown) (no (unknown) (unknown) CONT SANDY (units (unkno wn) date) Administration unknown) (unknown) (no (unknown) (unknown) Calcium 8.1 L (units ( unknown) date) unknown) (unknown) (no (unknown) (unknown) Carbon Dioxide 28 (units (unknown) date) unknown) (unknown) (no (unknown) (unknown) Chlordiazepoxide (units (unknown) date) 25 Mg Capsule PO unknown) Not Given (unknown) (no (unknown) (unknown) Chlordiazepoxide (units (unknown) date) HCl 50 mg 08/01/22 unknown) 12:00 08/03/22 06:38 (unknown) (no (unknown) (unknown) Chloride 101 (units (u nknown) date) unknown) (unknown) (no (unknown) (unknown) Chloride IV (units (un known) date) Infused unknown) (unknown) (no (unknown) (unknown) Confirmed (units (unkn own) date) 08/01/22] unknown) (unknown) (no (unknown) (unknown) Consent obtained (units (unknown) date) for unknown) 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: Yes (unknown) (no (unknown) (unknown) Creatinine 0.55 (units (unknown) date) unknown) (unknown) (no (unknown) (unknown) Current (units (unkno wn) date) Medications unknown) (unknown) (no (unknown) (unknown) DAILY SANDY (units (unkn own) date) Administration unknown) (unknown) (no (unknown) (unknown) DAILY SANDY Infusion (units (unknown) date) unknown) (unknown) (no (unknown) (unknown) DAILY SANDY (units (unkn own) date) unknown) (unknown) (no (unknown) (unknown) : 1990 (units (unknown) date) Acct:[id number] unknown) (unknown) (no (unknown) (unknown) Date of Service: (units (unknown) date) 08/01/22 unknown) (unknown) (no (unknown) (unknown) Dextrose (units (unkno wn) date) 5%-Lactated Ringers unknown) IV 84 mls/hr (unknown) (no (unknown) (unknown) Dextrose/Lactated (units (unknown) date) Ringer's 1,000 mls unknown) @ 84 mls/hr 08/01/22 20:15 08/02/22 (unknown) (no (unknown) (unknown) ETOH abuse (units (unk nown) date) unknown) (unknown) (no (unknown) (unknown) ETOH (units (unkno wn) date) withdrawal/DTs unknown) (unknown) (no (unknown) (unknown) Enoxaparin 40 (units ( unknown) date) Mg/0.4 Ml Syringe unknown) SUBCUT 40 mg (unknown) (no (unknown) (unknown) Enoxaparin Sodium (units (unknown) date) 40 mg 08/02/22 unknown) 09:45 08/02/22 10:14 (unknown) (no (unknown) (unknown) Eos # (Auto) 100 (units (unknown) date) unknown) (unknown) (no (unknown) (unknown) Eos % (Auto) 2.5 (units (unknown) date) unknown) (unknown) (no (unknown) (unknown) Estimated GFR > 60 (units (unknown) date) unknown) (unknown) (no (unknown) (unknown) Exam Narrative: (units (unknown) date) unknown) (unknown) (no (unknown) (unknown) Exam (units (unkno wn) date) unknown) (unknown) (no (unknown) (unknown) Fluoxetine 10 Mg (units (unknown) date) Capsule PO Not unknown) Given (unknown) (no (unknown) (unknown) Fluoxetine HCl 10 (units (unknown) date) mg 08/01/22 09:00 unknown) 08/02/22 08:11 (unknown) (no (unknown) (unknown) Folic Acid 1 Mg (units (unknown) date) Tablet PO Not Given unknown) (unknown) (no (unknown) (unknown) Folic Acid 1 mg (units (unknown) date) 08/01/22 09:00 unknown) 08/02/22 08:11 (unknown) (no (unknown) (unknown) Generic Name Dose (units (unknown) date) Route Start Last unknown) Admin (unknown) (no (unknown) (unknown) Glucose 131 H (units ( unknown) date) unknown) (unknown) (no (unknown) (unknown) Hct 29.7 L (units (unk nown) date) unknown) (unknown) (no (unknown) (unknown) Hgb 10.0 L (units (unk nown) date) unknown) (unknown) (no (unknown) (unknown) Home Medications (units (unknown) date) unknown) (unknown) (no (unknown) (unknown) Hydroxyzine (units (un known) date) Pamoate 25 Mg unknown) Capsule PO Not Given (unknown) (no (unknown) (unknown) Hydroxyzine (units (un known) date) Pamoate 50 mg unknown) 08/01/22 09:00 08/02/22 08:11 (unknown) (no (unknown) (unknown) Interval history: (units (unknown) date) unknown) (unknown) (no (unknown) (unknown) [facility] (units (unknown) date) [address] unknown) [place] [address] (unknown) (no (unknown) (unknown) Laboratory Results (units (unknown) date) - last 24 hr unknown) (unknown) (no (unknown) (unknown) Labs (units (unkno wn) date) unknown) (unknown) (no (unknown) (unknown) Labs: (units (unkno wn) date) unknown) (unknown) (no (unknown) (unknown) Lorazepam 0 mg (units (unknown) date) 08/01/22 08:00 unknown) 08/02/22 12:31 (unknown) (no (unknown) (unknown) Lorazepam 2 Mg/Ml (units (unknown) date) Inj IV 2 mg unknown) (unknown) (no (unknown) (unknown) Lymph # (Auto) (units (unknown) date) 1300 unknown) (unknown) (no (unknown) (unknown) Lymph % (Auto) (units (unknown) date) 26.4 unknown) (unknown) (no (unknown) (unknown) MCH 27.0 (units (unkno wn) date) unknown) (unknown) (no (unknown) (unknown) MCHC 33.7 (units (unkn own) date) unknown) (unknown) (no (unknown) (unknown) MCV 80.1 (units (unkno wn) date) unknown) (unknown) (no (unknown) (unknown) Medications: (units (u nknown) date) unknown) (unknown) (no (unknown) (unknown) Yates # (Auto) 400 (units (unknown) date) unknown) (unknown) (no (unknown) (unknown) Yates % (Auto) 7.7 (units (unknown) date) unknown) (unknown) (no (unknown) (unknown) Multivitamin 1 (units (unknown) date) Tablet PO Not Given unknown) (unknown) (no (unknown) (unknown) Multivitamins 1 (units (unknown) date) tab 08/01/22 09:00 unknown) 08/02/22 08:11 (unknown) (no (unknown) (unknown) Narrative (units (unkn own) date) unknown) (unknown) (no (unknown) (unknown) Neut # (Auto) 3100 (units (unknown) date) unknown) (unknown) (no (unknown) (unknown) Neut % (Auto) 63.0 (units (unknown) date) unknown) (unknown) (no (unknown) (unknown) Objective (units (unkn own) date) unknown) (unknown) (no (unknown) (unknown) Oxygen Delivery (units (unknown) date) Method Room Air unknown) (unknown) (no (unknown) (unknown) Oxygen Delivery (units (unknown) date) Method unknown) (unknown) (no (unknown) (unknown) Oxygen Flow Rate 0 (units (unknown) date) unknown) (unknown) (no (unknown) (unknown) PPx: lovenox, (units ( unknown) date) protonix unknown) (unknown) (no (unknown) (unknown) Pantoprazole 40 Mg (units (unknown) date) Vial IV 40 mg unknown) (unknown) (no (unknown) (unknown) Pantoprazole (units (u nknown) date) Sodium 40 mg unknown) 08/01/22 09:00 08/02/22 09:55 (unknown) (no (unknown) (unknown) Patient Location: (units (unknown) date) ICU unknown) (unknown) (no (unknown) (unknown) Patient summary: (units (unknown) date) 31 yo woman with unknown) PMH Of ETOH abuse admitted 08/01/22 for ETOH (unknown) (no (unknown) (unknown) Patient: (units (unkno wn) date) Sarah Connors R unknown) MR#: M (unknown) (no (unknown) (unknown) Patinet seen over 2 (units (unknown) date) way audio-visual unknown) system. She is alert, calm, and cooperative (unknown) (no (unknown) (unknown) Phenobarbital 60 (units (unknown) date) mg 08/01/22 09:00 unknown) 08/02/22 21:29 (unknown) (no (unknown) (unknown) Phenobarbital 65 (units (unknown) date) Mg/Ml Vial IV 60 mg unknown) (unknown) (no (unknown) (unknown) Plan (units (unkno wn) date) unknown) (unknown) (no (unknown) (unknown) Plt Count 155 (units ( unknown) date) unknown) (unknown) (no (unknown) (unknown) Potassium 3.8 3.4 (units (unknown) date) unknown) (unknown) (no (unknown) (unknown) Precedex IV 1 (units ( unknown) date) mcg/kg/hr unknown) (unknown) (no (unknown) (unknown) Protocol (units (unkno wn) date) unknown) (unknown) (no (unknown) (unknown) Provider: Riki Clay (units (unknown) date) Peg SÁNCHEZ unknown) (unknown) (no (unknown) (unknown) Pulse Oximetry 94 (units (unknown) date) unknown) (unknown) (no (unknown) (unknown) Pulse Oximetry 95 (units (unknown) date) 98 unknown) (unknown) (no (unknown) (unknown) Pulse Oximetry 98 (units (unknown) date) 98 unknown) (unknown) (no (unknown) (unknown) Pulse Oximetry 98 (units (unknown) date) unknown) (unknown) (no (unknown) (unknown) Pulse Oximetry 99 (units (unknown) date) 100 unknown) (unknown) (no (unknown) (unknown) Pulse Oximetry 99 (units (unknown) date) 98 unknown) (unknown) (no (unknown) (unknown) Pulse Oximetry 99 (units (unknown) date) unknown) (unknown) (no (unknown) (unknown) Pulse Rate 45 L (units (unknown) date) unknown) (unknown) (no (unknown) (unknown) Pulse Rate 46 L 46 (units (unknown) date) L unknown) (unknown) (no (unknown) (unknown) Pulse Rate 47 L 48 (units (unknown) date) L unknown) (unknown) (no (unknown) (unknown) Pulse Rate 47 L (units (unknown) date) unknown) (unknown) (no (unknown) (unknown) Pulse Rate 48 L (units (unknown) date) unknown) (unknown) (no (unknown) (unknown) Pulse Rate 49 L 47 (units (unknown) date) L unknown) (unknown) (no (unknown) (unknown) Pulse Rate 49 L 49 (units (unknown) date) L unknown) (unknown) (no (unknown) (unknown) Pulse Rate 50 L 50 (units (unknown) date) L unknown) (unknown) (no (unknown) (unknown) Pyridoxine 100 (units (unknown) date) Mg/Ml Vial IV 100 unknown) mg (unknown) (no (unknown) (unknown) Pyridoxine HCl 100 (units (unknown) date) mg 08/01/22 09:00 unknown) 08/02/22 09:55 (unknown) (no (unknown) (unknown) Q6HR SANDY (units (unkno wn) date) unknown) (unknown) (no (unknown) (unknown) RBC 3.71 L (units (unk nown) date) unknown) (unknown) (no (unknown) (unknown) RBC Morphology Not (units (unknown) date) Reportable unknown) (unknown) (no (unknown) (unknown) RDW 20.3 H (units (unk nown) date) unknown) (unknown) (no (unknown) (unknown) Recent events: (units (unknown) date) Patient's DT's unknown) improving. She was on Dex at 1 mcg/kg/hr this (unknown) (no (unknown) (unknown) Respiratory Rate (units (unknown) date) 16 15 unknown) (unknown) (no (unknown) (unknown) Respiratory Rate (units (unknown) date) 16 unknown) (unknown) (no (unknown) (unknown) Respiratory Rate (units (unknown) date) 17 16 unknown) (unknown) (no (unknown) (unknown) Respiratory Rate (units (unknown) date) 18 22 unknown) (unknown) (no (unknown) (unknown) Respiratory Rate (units (unknown) date) 19 19 unknown) (unknown) (no (unknown) (unknown) Respiratory Rate (units (unknown) date) 19 unknown) (unknown) (no (unknown) (unknown) Respiratory Rate (units (unknown) date) 20 17 unknown) (unknown) (no (unknown) (unknown) Signed By: (units (unk nown) date) unknown) (unknown) (no (unknown) (unknown) Sodium 134 L (units (u nknown) date) unknown) (unknown) (no (unknown) (unknown) Subjective (units (unk nown) date) unknown) (unknown) (no (unknown) (unknown) TITRATE SANDY 13.494 (units (unknown) date) mls/hr unknown) (unknown) (no (unknown) (unknown) Teleintensivist (units (unknown) date) Progress Note unknown) (unknown) (no (unknown) (unknown) Temperature 97.7 F (units (unknown) date) unknown) (unknown) (no (unknown) (unknown) Temperature 98.7 F (units (unknown) date) unknown) (unknown) (no (unknown) (unknown) Temperature (units (un known) date) unknown) (unknown) (no (unknown) (unknown) Thiamine HCl 100 (units (unknown) date) mg/ Sodium 101 mls unknown) @ 404 mls/hr 08/01/22 09:00 08/02/22 (unknown) (no (unknown) (unknown) Trade Name Freq (units (unknown) date) PRN Reason Stop unknown) Dose Admin (unknown) (no (unknown) (unknown) Visit Medications (units (unknown) date) (administered) unknown) (unknown) (no (unknown) (unknown) Vital Signs (units (un known) date) unknown) (unknown) (no (unknown) (unknown) WBC 4.9 (units (unkno wn) date) unknown) (unknown) (no (unknown) (unknown) [Embedded Image (units (unknown) date) Not Available] unknown) (unknown) (no (unknown) (unknown) [Rx Confirmed (units ( unknown) date) 08/01/22] unknown) (unknown) (no (unknown) (unknown) agitation develops (units (unknown) date) later can consider unknown) additional doses of Phenobarn prn (unknown) (no (unknown) (unknown) dexmedeTOMIDine in (units (unknown) date) 0.9 % NaCL 400 mcg unknown) in 100 mls @ 26.989 mls/hr 08/01/22 (unknown) (no (unknown) (unknown) fluoxetine 10 mg (units (unknown) date) capsule 10 mg PO unknown) DAILY 07/13/22 [History Confirmed 08/01/22] (unknown) (no (unknown) (unknown) hydroxyzine HCl 50 (units (unknown) date) mg tablet 50 mg PO unknown) DAILY 07/13/22 [History Confirmed (unknown) (no (unknown) (unknown) morning but then (units (unknown) date) her IV was lost so unknown) she is currently off Dex. (unknown) (no (unknown) (unknown) multivitamin with (units (unknown) date) folic acid 400 mcg unknown) tablet (Tab-A-Kael) 1 tab PO DAILY #30 tabs (unknown) (no (unknown) (unknown) pantoprazole 40 mg (units (unknown) date) tablet,delayed unknown) release 40 mg PO 0700 #30 tabs 07/14/22 [Rx (unknown) (no (unknown) (unknown) quetiapine 300 mg (units (unknown) date) tablet 300 mg PO unknown) DAILY 07/13/22 [History Confirmed 08/01/22] (unknown) (no (unknown) (unknown) thiamine (units (unkno wn) date) mononitrate (vit unknown) B1) 100 mg tablet 100 mg PO DAILY #30 tabs 07/14/22 (unknown) (no (unknown) (unknown) withrawal and DTS. (units (unknown) date) PT. given ativan, unknown) phenobarb, and placed on precedex drip. Result panel [id number] (unknown) (no (unknown) (unknown) (no value) (units (unk nown) date) unknown) (unknown) (no (unknown) (unknown) (past 8 hours): (units (unknown) date) unknown) (unknown) (no (unknown) (unknown) - ativan prn high (units (unknown) date) CIWA score unknown) (unknown) (no (unknown) (unknown) -Librium 50 mg Q6h (units (unknown) date) unknown) (unknown) (no (unknown) (unknown) -agree with (units (un known) date) stopping scheduled unknown) Phenobarb for now as DTs improved but if severe (unknown) (no (unknown) (unknown) -restart Precedex (units (unknown) date) drip as needed once unknown) IV access obtained (unknown) (no (unknown) (unknown) -start Gabapentin (units (unknown) date) unknown) (unknown) (no (unknown) (unknown) -start PO diet (units (unknown) date) given improved unknown) mental status. If Po intake is good can stop (unknown) (no (unknown) (unknown) -thiamine, folate, (units (unknown) date) MVI unknown) (unknown) (no (unknown) (unknown) [id number] (units (unkn own) date) unknown) (unknown) (no (unknown) (unknown) 01:00 08/03/22 (units (unknown) date) unknown) (unknown) (no (unknown) (unknown) 01:00 (units (unkno wn) date) unknown) (unknown) (no (unknown) (unknown) 01:30 08/03/22 (units (unknown) date) unknown) (unknown) (no (unknown) (unknown) 02:00 08/03/22 (units (unknown) date) unknown) (unknown) (no (unknown) (unknown) 02:00 (units (unkno wn) date) unknown) (unknown) (no (unknown) (unknown) 02:14 08/03/22 (units (unknown) date) unknown) (unknown) (no (unknown) (unknown) 02:30 08/03/22 (units (unknown) date) unknown) (unknown) (no (unknown) (unknown) 07/14/22 [Rx (units (u nknown) date) Confirmed 08/01/22] unknown) (unknown) (no (unknown) (unknown) 08/01/22] (units (unkn own) date) unknown) (unknown) (no (unknown) (unknown) 08/02/22 08/03/22 (units (unknown) date) 08/03/22 unknown) (unknown) (no (unknown) (unknown) 08/03/22 07:50 (units (unknown) date) unknown) (unknown) (no (unknown) (unknown) 08/03/22 (units (unkno wn) date) unknown) (unknown) (no (unknown) (unknown) 03:00 08/03/22 (units (unknown) date) unknown) (unknown) (no (unknown) (unknown) 03:00 (units (unkno wn) date) unknown) (unknown) (no (unknown) (unknown) 03:30 (units (unkno wn) date) unknown) (unknown) (no (unknown) (unknown) 03:44 08/03/22 (units (unknown) date) unknown) (unknown) (no (unknown) (unknown) 04:00 08/03/22 (units (unknown) date) unknown) (unknown) (no (unknown) (unknown) 04:30 (units (unkno wn) date) unknown) (unknown) (no (unknown) (unknown) 05:00 08/03/22 (units (unknown) date) unknown) (unknown) (no (unknown) (unknown) 05:30 (units (unkno wn) date) unknown) (unknown) (no (unknown) (unknown) 06:00 08/03/22 (units (unknown) date) unknown) (unknown) (no (unknown) (unknown) 06:30 (units (unkno wn) date) unknown) (unknown) (no (unknown) (unknown) 07:00 08/03/22 (units (unknown) date) unknown) (unknown) (no (unknown) (unknown) 07:00 (units (unkno wn) date) unknown) (unknown) (no (unknown) (unknown) 08:15 08/03/22 (units (unknown) date) 02:15 unknown) (unknown) (no (unknown) (unknown) 19:23 (units (unkno wn) date) unknown) (unknown) (no (unknown) (unknown) 2 MCG/KG/HR (units (un known) date) unknown) (unknown) (no (unknown) (unknown) 21:20 07:50 07:50 (units (unknown) date) unknown) (unknown) (no (unknown) (unknown) 22:23 (units (unkno wn) date) unknown) (unknown) (no (unknown) (unknown) Administration (units (unknown) date) unknown) (unknown) (no (unknown) (unknown) Age/Sex: 31 / F (units (unknown) date) unknown) (unknown) (no (unknown) (unknown) Alcohol Withdrawal (units (unknown) date) unknown) (unknown) (no (unknown) (unknown) Anisocytosis 1+ H (units (unknown) date) unknown) (unknown) (no (unknown) (unknown) Assessment + Plan (units (unknown) date) narrative: unknown) (unknown) (no (unknown) (unknown) Assessment + Plan (units (unknown) date) unknown) (unknown) (no (unknown) (unknown) Assessmet (units (unkn own) date) unknown) (unknown) (no (unknown) (unknown) BID SANDY (units (unkno wn) date) Administration unknown) (unknown) (no (unknown) (unknown) BUN 2 L (units (unkno wn) date) unknown) (unknown) (no (unknown) (unknown) BUN/Creatinine (units (unknown) date) Ratio 3.6 L unknown) (unknown) (no (unknown) (unknown) Baso # (Auto) 0 (units (unknown) date) unknown) (unknown) (no (unknown) (unknown) Baso % (Auto) 0.4 (units (unknown) date) unknown) (unknown) (no (unknown) (unknown) Blood Pressure (units (unknown) date) 122/76 unknown) (unknown) (no (unknown) (unknown) Blood Pressure (units (unknown) date) 126/83 unknown) (unknown) (no (unknown) (unknown) Blood Pressure (units (unknown) date) 126/88 unknown) (unknown) (no (unknown) (unknown) Blood Pressure (units (unknown) date) 128/80 unknown) (unknown) (no (unknown) (unknown) Blood Pressure (units (unknown) date) 128/83 unknown) (unknown) (no (unknown) (unknown) Blood Pressure (units (unknown) date) 130/81 unknown) (unknown) (no (unknown) (unknown) Blood Pressure (units (unknown) date) 138/77 unknown) (unknown) (no (unknown) (unknown) Blood Pressure (units (unknown) date) unknown) (unknown) (no (unknown) (unknown) CIWAPRN PRN (units (un known) date) Administration unknown) (unknown) (no (unknown) (unknown) CONT SANDY (units (unkno wn) date) Administration unknown) (unknown) (no (unknown) (unknown) Calcium 8.1 L (units ( unknown) date) unknown) (unknown) (no (unknown) (unknown) Carbon Dioxide 28 (units (unknown) date) unknown) (unknown) (no (unknown) (unknown) Chlordiazepoxide (units (unknown) date) 25 Mg Capsule PO unknown) Not Given (unknown) (no (unknown) (unknown) Chlordiazepoxide (units (unknown) date) HCl 50 mg 08/01/22 unknown) 12:00 08/03/22 06:38 (unknown) (no (unknown) (unknown) Chloride 101 (units (u nknown) date) unknown) (unknown) (no (unknown) (unknown) Chloride IV (units (un known) date) Infused unknown) (unknown) (no (unknown) (unknown) Confirmed (units (unkn own) date) 08/01/22] unknown) (unknown) (no (unknown) (unknown) Consent obtained (units (unknown) date) for unknown) 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: Yes (unknown) (no (unknown) (unknown) Creatinine 0.55 (units (unknown) date) unknown) (unknown) (no (unknown) (unknown) Current (units (unkno wn) date) Medications unknown) (unknown) (no (unknown) (unknown) DAILY SANDY (units (unkn own) date) Administration unknown) (unknown) (no (unknown) (unknown) DAILY SANDY Infusion (units (unknown) date) unknown) (unknown) (no (unknown) (unknown) DAILY SANDY (units (unkn own) date) unknown) (unknown) (no (unknown) (unknown) : 1990 (units (unknown) date) Acct:[id number] unknown) (unknown) (no (unknown) (unknown) Date of Service: (units (unknown) date) 08/01/22 unknown) (unknown) (no (unknown) (unknown) Dextrose (units (unkno wn) date) 5%-Lactated Ringers unknown) IV 84 mls/hr (unknown) (no (unknown) (unknown) Dextrose/Lactated (units (unknown) date) Ringer's 1,000 mls unknown) @ 84 mls/hr 08/01/22 20:15 08/02/22 (unknown) (no (unknown) (unknown) ETOH abuse (units (unk nown) date) unknown) (unknown) (no (unknown) (unknown) ETOH (units (unkno wn) date) withdrawal/DTs unknown) (unknown) (no (unknown) (unknown) Enoxaparin 40 (units ( unknown) date) Mg/0.4 Ml Syringe unknown) SUBCUT 40 mg (unknown) (no (unknown) (unknown) Enoxaparin Sodium (units (unknown) date) 40 mg 08/02/22 unknown) 09:45 08/02/22 10:14 (unknown) (no (unknown) (unknown) Eos # (Auto) 100 (units (unknown) date) unknown) (unknown) (no (unknown) (unknown) Eos % (Auto) 2.5 (units (unknown) date) unknown) (unknown) (no (unknown) (unknown) Estimated GFR > 60 (units (unknown) date) unknown) (unknown) (no (unknown) (unknown) Exam Narrative: (units (unknown) date) unknown) (unknown) (no (unknown) (unknown) Exam (units (unkno wn) date) unknown) (unknown) (no (unknown) (unknown) Fluoxetine 10 Mg (units (unknown) date) Capsule PO Not unknown) Given (unknown) (no (unknown) (unknown) Fluoxetine HCl 10 (units (unknown) date) mg 08/01/22 09:00 unknown) 08/02/22 08:11 (unknown) (no (unknown) (unknown) Folic Acid 1 Mg (units (unknown) date) Tablet PO Not Given unknown) (unknown) (no (unknown) (unknown) Folic Acid 1 mg (units (unknown) date) 08/01/22 09:00 unknown) 08/02/22 08:11 (unknown) (no (unknown) (unknown) Generic Name Dose (units (unknown) date) Route Start Last unknown) Admin (unknown) (no (unknown) (unknown) Glucose 131 H (units ( unknown) date) unknown) (unknown) (no (unknown) (unknown) Hct 29.7 L (units (unk nown) date) unknown) (unknown) (no (unknown) (unknown) Hgb 10.0 L (units (unk nown) date) unknown) (unknown) (no (unknown) (unknown) Home Medications (units (unknown) date) unknown) (unknown) (no (unknown) (unknown) Hydroxyzine (units (un known) date) Pamoate 25 Mg unknown) Capsule PO Not Given (unknown) (no (unknown) (unknown) Hydroxyzine (units (un known) date) Pamoate 50 mg unknown) 08/01/22 09:00 08/02/22 08:11 (unknown) (no (unknown) (unknown) Interval history: (units (unknown) date) unknown) (unknown) (no (unknown) (unknown) [facility] (units (unknown) date) [address] unknown) [place] [address] (unknown) (no (unknown) (unknown) Laboratory Results (units (unknown) date) - last 24 hr unknown) (unknown) (no (unknown) (unknown) Labs (units (unkno wn) date) unknown) (unknown) (no (unknown) (unknown) Labs: (units (unkno wn) date) unknown) (unknown) (no (unknown) (unknown) Lorazepam 0 mg (units (unknown) date) 08/01/22 08:00 unknown) 08/02/22 12:31 (unknown) (no (unknown) (unknown) Lorazepam 2 Mg/Ml (units (unknown) date) Inj IV 2 mg unknown) (unknown) (no (unknown) (unknown) Lymph # (Auto) (units (unknown) date) 1300 unknown) (unknown) (no (unknown) (unknown) Lymph % (Auto) (units (unknown) date) 26.4 unknown) (unknown) (no (unknown) (unknown) MCH 27.0 (units (unkno wn) date) unknown) (unknown) (no (unknown) (unknown) MCHC 33.7 (units (unkn own) date) unknown) (unknown) (no (unknown) (unknown) MCV 80.1 (units (unkno wn) date) unknown) (unknown) (no (unknown) (unknown) Medications: (units (u nknown) date) unknown) (unknown) (no (unknown) (unknown) Yates # (Auto) 400 (units (unknown) date) unknown) (unknown) (no (unknown) (unknown) Yates % (Auto) 7.7 (units (unknown) date) unknown) (unknown) (no (unknown) (unknown) Multivitamin 1 (units (unknown) date) Tablet PO Not Given unknown) (unknown) (no (unknown) (unknown) Multivitamins 1 (units (unknown) date) tab 08/01/22 09:00 unknown) 08/02/22 08:11 (unknown) (no (unknown) (unknown) Narrative (units (unkn own) date) unknown) (unknown) (no (unknown) (unknown) Neut # (Auto) 3100 (units (unknown) date) unknown) (unknown) (no (unknown) (unknown) Neut % (Auto) 63.0 (units (unknown) date) unknown) (unknown) (no (unknown) (unknown) Objective (units (unkn own) date) unknown) (unknown) (no (unknown) (unknown) Oxygen Delivery (units (unknown) date) Method Room Air unknown) (unknown) (no (unknown) (unknown) Oxygen Delivery (units (unknown) date) Method unknown) (unknown) (no (unknown) (unknown) Oxygen Flow Rate 0 (units (unknown) date) unknown) (unknown) (no (unknown) (unknown) PPx: lovenox, (units ( unknown) date) protonix unknown) (unknown) (no (unknown) (unknown) Pantoprazole 40 Mg (units (unknown) date) Vial IV 40 mg unknown) (unknown) (no (unknown) (unknown) Pantoprazole (units (u nknown) date) Sodium 40 mg unknown) 08/01/22 09:00 08/02/22 09:55 (unknown) (no (unknown) (unknown) Patient Location: (units (unknown) date) ICU unknown) (unknown) (no (unknown) (unknown) Patient summary: (units (unknown) date) 31 yo woman with unknown) PMH Of ETOH abuse admitted 08/01/22 for ETOH (unknown) (no (unknown) (unknown) Patient: (units (unkno wn) date) Sarah Connors R unknown) MR#: [id number] (unknown) (no (unknown) (unknown) Patinet seen over 2 (units (unknown) date) way audio-visual unknown) system. She is alert, calm, and cooperative (unknown) (no (unknown) (unknown) Phenobarbital 60 (units (unknown) date) mg 08/01/22 09:00 unknown) 08/02/22 21:29 (unknown) (no (unknown) (unknown) Phenobarbital 65 (units (unknown) date) Mg/Ml Vial IV 60 mg unknown) (unknown) (no (unknown) (unknown) Plan (units (unkno wn) date) unknown) (unknown) (no (unknown) (unknown) Plt Count 155 (units ( unknown) date) unknown) (unknown) (no (unknown) (unknown) Potassium 3.8 3.4 (units (unknown) date) unknown) (unknown) (no (unknown) (unknown) Precedex IV 1 (units ( unknown) date) mcg/kg/hr unknown) (unknown) (no (unknown) (unknown) Protocol (units (unkno wn) date) unknown) (unknown) (no (unknown) (unknown) Provider: Riki Clay (units (unknown) date) Peg SÁNCHEZ unknown) (unknown) (no (unknown) (unknown) Pulse Oximetry 94 (units (unknown) date) unknown) (unknown) (no (unknown) (unknown) Pulse Oximetry 95 (units (unknown) date) 98 unknown) (unknown) (no (unknown) (unknown) Pulse Oximetry 98 (units (unknown) date) 98 unknown) (unknown) (no (unknown) (unknown) Pulse Oximetry 98 (units (unknown) date) unknown) (unknown) (no (unknown) (unknown) Pulse Oximetry 99 (units (unknown) date) 100 unknown) (unknown) (no (unknown) (unknown) Pulse Oximetry 99 (units (unknown) date) 98 unknown) (unknown) (no (unknown) (unknown) Pulse Oximetry 99 (units (unknown) date) unknown) (unknown) (no (unknown) (unknown) Pulse Rate 45 L (units (unknown) date) unknown) (unknown) (no (unknown) (unknown) Pulse Rate 46 L 46 (units (unknown) date) L unknown) (unknown) (no (unknown) (unknown) Pulse Rate 47 L 48 (units (unknown) date) L unknown) (unknown) (no (unknown) (unknown) Pulse Rate 47 L (units (unknown) date) unknown) (unknown) (no (unknown) (unknown) Pulse Rate 48 L (units (unknown) date) unknown) (unknown) (no (unknown) (unknown) Pulse Rate 49 L 47 (units (unknown) date) L unknown) (unknown) (no (unknown) (unknown) Pulse Rate 49 L 49 (units (unknown) date) L unknown) (unknown) (no (unknown) (unknown) Pulse Rate 50 L 50 (units (unknown) date) L unknown) (unknown) (no (unknown) (unknown) Pyridoxine 100 (units (unknown) date) Mg/Ml Vial IV 100 unknown) mg (unknown) (no (unknown) (unknown) Pyridoxine HCl 100 (units (unknown) date) mg 08/01/22 09:00 unknown) 08/02/22 09:55 (unknown) (no (unknown) (unknown) Q6HR SANDY (units (unkno wn) date) unknown) (unknown) (no (unknown) (unknown) RBC 3.71 L (units (unk nown) date) unknown) (unknown) (no (unknown) (unknown) RBC Morphology Not (units (unknown) date) Reportable unknown) (unknown) (no (unknown) (unknown) RDW 20.3 H (units (unk nown) date) unknown) (unknown) (no (unknown) (unknown) Recent events: (units (unknown) date) Patient's DT's unknown) improving. She was on Dex at 1 mcg/kg/hr this (unknown) (no (unknown) (unknown) Respiratory Rate (units (unknown) date) 16 15 unknown) (unknown) (no (unknown) (unknown) Respiratory Rate (units (unknown) date) 16 unknown) (unknown) (no (unknown) (unknown) Respiratory Rate (units (unknown) date) 17 16 unknown) (unknown) (no (unknown) (unknown) Respiratory Rate (units (unknown) date) 18 22 unknown) (unknown) (no (unknown) (unknown) Respiratory Rate (units (unknown) date) 19 19 unknown) (unknown) (no (unknown) (unknown) Respiratory Rate (units (unknown) date) 19 unknown) (unknown) (no (unknown) (unknown) Respiratory Rate (units (unknown) date) 20 17 unknown) (unknown) (no (unknown) (unknown) Signed By: (units (unk nown) date) unknown) (unknown) (no (unknown) (unknown) Sodium 134 L (units (u nknown) date) unknown) (unknown) (no (unknown) (unknown) Subjective (units (unk nown) date) unknown) (unknown) (no (unknown) (unknown) TITRATE SANDY 13.494 (units (unknown) date) mls/hr unknown) (unknown) (no (unknown) (unknown) Teleintensivist (units (unknown) date) Progress Note unknown) (unknown) (no (unknown) (unknown) Temperature 97.7 F (units (unknown) date) unknown) (unknown) (no (unknown) (unknown) Temperature 98.7 F (units (unknown) date) unknown) (unknown) (no (unknown) (unknown) Temperature (units (un known) date) unknown) (unknown) (no (unknown) (unknown) Thiamine HCl 100 (units (unknown) date) mg/ Sodium 101 mls unknown) @ 404 mls/hr 08/01/22 09:00 08/02/22 (unknown) (no (unknown) (unknown) Time Spent With (units (unknown) date) Patient unknown) (unknown) (no (unknown) (unknown) Time with patient: (units (unknown) date) 30 to 49 minutes unknown) with 50% spent counseling/coordina ting care (unknown) (no (unknown) (unknown) Trade Name Freq (units (unknown) date) PRN Reason Stop unknown) Dose Admin (unknown) (no (unknown) (unknown) Visit Medications (units (unknown) date) (administered) unknown) (unknown) (no (unknown) (unknown) Vital Signs (units (un known) date) unknown) (unknown) (no (unknown) (unknown) WBC 4.9 (units (unkno wn) date) unknown) (unknown) (no (unknown) (unknown) [Embedded Image (units (unknown) date) Not Available] unknown) (unknown) (no (unknown) (unknown) [Rx Confirmed (units ( unknown) date) 08/01/22] unknown) (unknown) (no (unknown) (unknown) agitation develops (units (unknown) date) later can consider unknown) additional doses of Phenobarn prn (unknown) (no (unknown) (unknown) dexmedeTOMIDine in (units (unknown) date) 0.9 % NaCL 400 mcg unknown) in 100 mls @ 26.989 mls/hr 08/01/22 (unknown) (no (unknown) (unknown) fluoxetine 10 mg (units (unknown) date) capsule 10 mg PO unknown) DAILY 07/13/22 [History Confirmed 08/01/22] (unknown) (no (unknown) (unknown) hydroxyzine HCl 50 (units (unknown) date) mg tablet 50 mg PO unknown) DAILY 07/13/22 [History Confirmed (unknown) (no (unknown) (unknown) maintenance fluid (units (unknown) date) D5LR unknown) (unknown) (no (unknown) (unknown) morning but then (units (unknown) date) her IV was lost so unknown) she is currently off Dex. (unknown) (no (unknown) (unknown) multivitamin with (units (unknown) date) folic acid 400 mcg unknown) tablet (Tab-A-Kael) 1 tab PO DAILY #30 tabs (unknown) (no (unknown) (unknown) pantoprazole 40 mg (units (unknown) date) tablet,delayed unknown) release 40 mg PO 0700 #30 tabs 07/14/22 [Rx (unknown) (no (unknown) (unknown) quetiapine 300 mg (units (unknown) date) tablet 300 mg PO unknown) DAILY 07/13/22 [History Confirmed 08/01/22] (unknown) (no (unknown) (unknown) thiamine (units (unkno wn) date) mononitrate (vit unknown) B1) 100 mg tablet 100 mg PO DAILY #30 tabs 07/14/22 (unknown) (no (unknown) (unknown) withrawal and DTS. (units (unknown) date) PT. given ativan, unknown) phenobarb, and placed on precedex drip. Result panel [id number] (unknown) (no (unknown) (unknown) (no value) (units (unk nown) date) unknown) (unknown) (no (unknown) (unknown) (past 8 hours): (units (unknown) date) unknown) (unknown) (no (unknown) (unknown) - ativan prn high (units (unknown) date) CIWA score unknown) (unknown) (no (unknown) (unknown) -Librium 50 mg Q6h (units (unknown) date) unknown) (unknown) (no (unknown) (unknown) -agree with (units (un known) date) stopping scheduled unknown) Phenobarb for now as DTs improved but if severe (unknown) (no (unknown) (unknown) -restart Precedex (units (unknown) date) drip as needed once unknown) IV access obtained (unknown) (no (unknown) (unknown) -start Gabapentin (units (unknown) date) unknown) (unknown) (no (unknown) (unknown) -start PO diet (units (unknown) date) given improved unknown) mental status. If Po intake is good can stop (unknown) (no (unknown) (unknown) -thiamine, folate, (units (unknown) date) MVI unknown) (unknown) (no (unknown) (unknown) [id number] (units (unkn own) date) unknown) (unknown) (no (unknown) (unknown) 01:00 08/03/22 (units (unknown) date) unknown) (unknown) (no (unknown) (unknown) 01:00 (units (unkno wn) date) unknown) (unknown) (no (unknown) (unknown) 01:30 08/03/22 (units (unknown) date) unknown) (unknown) (no (unknown) (unknown) 02:00 08/03/22 (units (unknown) date) unknown) (unknown) (no (unknown) (unknown) 02:00 (units (unkno wn) date) unknown) (unknown) (no (unknown) (unknown) 02:14 08/03/22 (units (unknown) date) unknown) (unknown) (no (unknown) (unknown) 02:30 08/03/22 (units (unknown) date) unknown) (unknown) (no (unknown) (unknown) 07/14/22 [Rx (units (u nknown) date) Confirmed 08/01/22] unknown) (unknown) (no (unknown) (unknown) 08/01/22] (units (unkn own) date) unknown) (unknown) (no (unknown) (unknown) 08/02/22 08/03/22 (units (unknown) date) 08/03/22 unknown) (unknown) (no (unknown) (unknown) 08/03/22 07:50 (units (unknown) date) unknown) (unknown) (no (unknown) (unknown) 08/03/22 1112 (units ( unknown) date) unknown) (unknown) (no (unknown) (unknown) 08/03/22 (units (unkno wn) date) unknown) (unknown) (no (unknown) (unknown) 03:00 08/03/22 (units (unknown) date) unknown) (unknown) (no (unknown) (unknown) 03:00 (units (unkno wn) date) unknown) (unknown) (no (unknown) (unknown) 03:30 (units (unkno wn) date) unknown) (unknown) (no (unknown) (unknown) 03:44 08/03/22 (units (unknown) date) unknown) (unknown) (no (unknown) (unknown) 04:00 08/03/22 (units (unknown) date) unknown) (unknown) (no (unknown) (unknown) 04:30 (units (unkno wn) date) unknown) (unknown) (no (unknown) (unknown) 05:00 08/03/22 (units (unknown) date) unknown) (unknown) (no (unknown) (unknown) 05:30 (units (unkno wn) date) unknown) (unknown) (no (unknown) (unknown) 06:00 08/03/22 (units (unknown) date) unknown) (unknown) (no (unknown) (unknown) 06:30 (units (unkno wn) date) unknown) (unknown) (no (unknown) (unknown) 07:00 08/03/22 (units (unknown) date) unknown) (unknown) (no (unknown) (unknown) 07:00 (units (unkno wn) date) unknown) (unknown) (no (unknown) (unknown) 08:15 08/03/22 (units (unknown) date) 02:15 unknown) (unknown) (no (unknown) (unknown) 19:23 (units (unkno wn) date) unknown) (unknown) (no (unknown) (unknown) 2 MCG/KG/HR (units (un known) date) unknown) (unknown) (no (unknown) (unknown) 21:20 07:50 07:50 (units (unknown) date) unknown) (unknown) (no (unknown) (unknown) 22:23 (units (unkno wn) date) unknown) (unknown) (no (unknown) (unknown) Administration (units (unknown) date) unknown) (unknown) (no (unknown) (unknown) Age/Sex: 31 / F (units (unknown) date) unknown) (unknown) (no (unknown) (unknown) Alcohol Withdrawal (units (unknown) date) unknown) (unknown) (no (unknown) (unknown) Anisocytosis 1+ H (units (unknown) date) unknown) (unknown) (no (unknown) (unknown) Assessment + Plan (units (unknown) date) narrative: unknown) (unknown) (no (unknown) (unknown) Assessment + Plan (units (unknown) date) unknown) (unknown) (no (unknown) (unknown) Assessmet (units (unkn own) date) unknown) (unknown) (no (unknown) (unknown) BID SANDY (units (unkno wn) date) Administration unknown) (unknown) (no (unknown) (unknown) BUN 2 L (units (unkno wn) date) unknown) (unknown) (no (unknown) (unknown) BUN/Creatinine (units (unknown) date) Ratio 3.6 L unknown) (unknown) (no (unknown) (unknown) Baso # (Auto) 0 (units (unknown) date) unknown) (unknown) (no (unknown) (unknown) Baso % (Auto) 0.4 (units (unknown) date) unknown) (unknown) (no (unknown) (unknown) Blood Pressure (units (unknown) date) 122/76 unknown) (unknown) (no (unknown) (unknown) Blood Pressure (units (unknown) date) 126/83 unknown) (unknown) (no (unknown) (unknown) Blood Pressure (units (unknown) date) 126/88 unknown) (unknown) (no (unknown) (unknown) Blood Pressure (units (unknown) date) 128/80 unknown) (unknown) (no (unknown) (unknown) Blood Pressure (units (unknown) date) 128/83 unknown) (unknown) (no (unknown) (unknown) Blood Pressure (units (unknown) date) 130/81 unknown) (unknown) (no (unknown) (unknown) Blood Pressure (units (unknown) date) 138/77 unknown) (unknown) (no (unknown) (unknown) Blood Pressure (units (unknown) date) unknown) (unknown) (no (unknown) (unknown) CIWAPRN PRN (units (un known) date) Administration unknown) (unknown) (no (unknown) (unknown) CONT SANDY (units (unkno wn) date) Administration unknown) (unknown) (no (unknown) (unknown) Calcium 8.1 L (units ( unknown) date) unknown) (unknown) (no (unknown) (unknown) Carbon Dioxide 28 (units (unknown) date) unknown) (unknown) (no (unknown) (unknown) Chlordiazepoxide (units (unknown) date) 25 Mg Capsule PO unknown) Not Given (unknown) (no (unknown) (unknown) Chlordiazepoxide (units (unknown) date) HCl 50 mg 08/01/22 unknown) 12:00 08/03/22 06:38 (unknown) (no (unknown) (unknown) Chloride 101 (units (u nknown) date) unknown) (unknown) (no (unknown) (unknown) Chloride IV (units (un known) date) Infused unknown) (unknown) (no (unknown) (unknown) Confirmed (units (unkn own) date) 08/01/22] unknown) (unknown) (no (unknown) (unknown) Consent obtained (units (unknown) date) for unknown) 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: Yes (unknown) (no (unknown) (unknown) Creatinine 0.55 (units (unknown) date) unknown) (unknown) (no (unknown) (unknown) Current (units (unkno wn) date) Medications unknown) (unknown) (no (unknown) (unknown) DAILY SANDY (units (unkn own) date) Administration unknown) (unknown) (no (unknown) (unknown) DAILY SANDY Infusion (units (unknown) date) unknown) (unknown) (no (unknown) (unknown) DAILY SANDY (units (unkn own) date) unknown) (unknown) (no (unknown) (unknown) : 1990 (units (unknown) date) Acct:[id number] unknown) (unknown) (no (unknown) (unknown) Date of Service: (units (unknown) date) 08/01/22 unknown) (unknown) (no (unknown) (unknown) Dextrose (units (unkno wn) date) 5%-Lactated Ringers unknown) IV 84 mls/hr (unknown) (no (unknown) (unknown) Dextrose/Lactated (units (unknown) date) Ringer's 1,000 mls unknown) @ 84 mls/hr 08/01/22 20:15 08/02/22 (unknown) (no (unknown) (unknown) ETOH abuse (units (unk nown) date) unknown) (unknown) (no (unknown) (unknown) ETOH (units (unkno wn) date) withdrawal/DTs unknown) (unknown) (no (unknown) (unknown) Enoxaparin 40 (units ( unknown) date) Mg/0.4 Ml Syringe unknown) SUBCUT 40 mg (unknown) (no (unknown) (unknown) Enoxaparin Sodium (units (unknown) date) 40 mg 08/02/22 unknown) 09:45 08/02/22 10:14 (unknown) (no (unknown) (unknown) Eos # (Auto) 100 (units (unknown) date) unknown) (unknown) (no (unknown) (unknown) Eos % (Auto) 2.5 (units (unknown) date) unknown) (unknown) (no (unknown) (unknown) Estimated GFR > 60 (units (unknown) date) unknown) (unknown) (no (unknown) (unknown) Exam Narrative: (units (unknown) date) unknown) (unknown) (no (unknown) (unknown) Exam (units (unkno wn) date) unknown) (unknown) (no (unknown) (unknown) Fluoxetine 10 Mg (units (unknown) date) Capsule PO Not unknown) Given (unknown) (no (unknown) (unknown) Fluoxetine HCl 10 (units (unknown) date) mg 08/01/22 09:00 unknown) 08/02/22 08:11 (unknown) (no (unknown) (unknown) Folic Acid 1 Mg (units (unknown) date) Tablet PO Not Given unknown) (unknown) (no (unknown) (unknown) Folic Acid 1 mg (units (unknown) date) 08/01/22 09:00 unknown) 08/02/22 08:11 (unknown) (no (unknown) (unknown) Generic Name Dose (units (unknown) date) Route Start Last unknown) Admin (unknown) (no (unknown) (unknown) Glucose 131 H (units ( unknown) date) unknown) (unknown) (no (unknown) (unknown) Hct 29.7 L (units (unk nown) date) unknown) (unknown) (no (unknown) (unknown) Hgb 10.0 L (units (unk nown) date) unknown) (unknown) (no (unknown) (unknown) Home Medications (units (unknown) date) unknown) (unknown) (no (unknown) (unknown) Hydroxyzine (units (un known) date) Pamoate 25 Mg unknown) Capsule PO Not Given (unknown) (no (unknown) (unknown) Hydroxyzine (units (un known) date) Pamoate 50 mg unknown) 08/01/22 09:00 08/02/22 08:11 (unknown) (no (unknown) (unknown) IF CAMERA (units (unkn own) date) ACTIVATED, patient unknown) seen via real-time interactive audiovisual (unknown) (no (unknown) (unknown) Interval history: (units (unknown) date) unknown) (unknown) (no (unknown) (unknown) [facility] (units (unknown) date) [address] [place] [address] Street unknown) [place] [address] (unknown) (no (unknown) (unknown) Laboratory Results (units (unknown) date) - last 24 hr unknown) (unknown) (no (unknown) (unknown) Labs (units (unkno wn) date) unknown) (unknown) (no (unknown) (unknown) Labs: (units (unkno wn) date) unknown) (unknown) (no (unknown) (unknown) Lorazepam 0 mg (units (unknown) date) 08/01/22 08:00 unknown) 08/02/22 12:31 (unknown) (no (unknown) (unknown) Lorazepam 2 Mg/Ml (units (unknown) date) Inj IV 2 mg unknown) (unknown) (no (unknown) (unknown) Lymph # (Auto) (units (unknown) date) 1300 unknown) (unknown) (no (unknown) (unknown) Lymph % (Auto) (units (unknown) date) 26.4 unknown) (unknown) (no (unknown) (unknown) MCH 27.0 (units (unkno wn) date) unknown) (unknown) (no (unknown) (unknown) MCHC 33.7 (units (unkn own) date) unknown) (unknown) (no (unknown) (unknown) MCV 80.1 (units (unkno wn) date) unknown) (unknown) (no (unknown) (unknown) Medications: (units (u nknown) date) unknown) (unknown) (no (unknown) (unknown) Yates # (Auto) 400 (units (unknown) date) unknown) (unknown) (no (unknown) (unknown) Yates % (Auto) 7.7 (units (unknown) date) unknown) (unknown) (no (unknown) (unknown) Multivitamin 1 (units (unknown) date) Tablet PO Not Given unknown) (unknown) (no (unknown) (unknown) Multivitamins 1 (units (unknown) date) tab 08/01/22 09:00 unknown) 08/02/22 08:11 (unknown) (no (unknown) (unknown) Narrative (units (unkn own) date) unknown) (unknown) (no (unknown) (unknown) Neut # (Auto) 3100 (units (unknown) date) unknown) (unknown) (no (unknown) (unknown) Neut % (Auto) 63.0 (units (unknown) date) unknown) (unknown) (no (unknown) (unknown) Objective (units (unkn own) date) unknown) (unknown) (no (unknown) (unknown) Other (units (unkno wn) date) 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, RN (unknown) (no (unknown) (unknown) Oxygen Delivery (units (unknown) date) Method Room Air unknown) (unknown) (no (unknown) (unknown) Oxygen Delivery (units (unknown) date) Method unknown) (unknown) (no (unknown) (unknown) Oxygen Flow Rate 0 (units (unknown) date) unknown) (unknown) (no (unknown) (unknown) PPx: lovenox, (units ( unknown) date) protonix unknown) (unknown) (no (unknown) (unknown) Pantoprazole 40 Mg (units (unknown) date) Vial IV 40 mg unknown) (unknown) (no (unknown) (unknown) Pantoprazole (units (u nknown) date) Sodium 40 mg unknown) 08/01/22 09:00 08/02/22 09:55 (unknown) (no (unknown) (unknown) Patient Location: (units (unknown) date) ICU unknown) (unknown) (no (unknown) (unknown) Patient summary: (units (unknown) date) 31 yo woman with unknown) PMH Of ETOH abuse admitted 08/01/22 for ETOH (unknown) (no (unknown) (unknown) Patient: (units (unkno wn) date) Sarah Connors R unknown) MR#: M (unknown) (no (unknown) (unknown) Patinet seen over 2 (units (unknown) date) way audio-visual unknown) system. She is alert, calm, and cooperative (unknown) (no (unknown) (unknown) Phenobarbital 60 (units (unknown) date) mg 08/01/22 09:00 unknown) 08/02/22 21:29 (unknown) (no (unknown) (unknown) Phenobarbital 65 (units (unknown) date) Mg/Ml Vial IV 60 mg unknown) (unknown) (no (unknown) (unknown) Plan (units (unkno wn) date) unknown) (unknown) (no (unknown) (unknown) Plt Count 155 (units ( unknown) date) unknown) (unknown) (no (unknown) (unknown) Potassium 3.8 3.4 (units (unknown) date) unknown) (unknown) (no (unknown) (unknown) Precedex IV 1 (units ( unknown) date) mcg/kg/hr unknown) (unknown) (no (unknown) (unknown) Protocol (units (unkno wn) date) unknown) (unknown) (no (unknown) (unknown) Provider location (units (unknown) date) (State): [place] unknown) (unknown) (no (unknown) (unknown) Provider: Riki Clay (units (unknown) date) Peg SÁNCHEZ unknown) (unknown) (no (unknown) (unknown) Pulse Oximetry 94 (units (unknown) date) unknown) (unknown) (no (unknown) (unknown) Pulse Oximetry 95 (units (unknown) date) 98 unknown) (unknown) (no (unknown) (unknown) Pulse Oximetry 98 (units (unknown) date) 98 unknown) (unknown) (no (unknown) (unknown) Pulse Oximetry 98 (units (unknown) date) unknown) (unknown) (no (unknown) (unknown) Pulse Oximetry 99 (units (unknown) date) 100 unknown) (unknown) (no (unknown) (unknown) Pulse Oximetry 99 (units (unknown) date) 98 unknown) (unknown) (no (unknown) (unknown) Pulse Oximetry 99 (units (unknown) date) unknown) (unknown) (no (unknown) (unknown) Pulse Rate 45 L (units (unknown) date) unknown) (unknown) (no (unknown) (unknown) Pulse Rate 46 L 46 (units (unknown) date) L unknown) (unknown) (no (unknown) (unknown) Pulse Rate 47 L 48 (units (unknown) date) L unknown) (unknown) (no (unknown) (unknown) Pulse Rate 47 L (units (unknown) date) unknown) (unknown) (no (unknown) (unknown) Pulse Rate 48 L (units (unknown) date) unknown) (unknown) (no (unknown) (unknown) Pulse Rate 49 L 47 (units (unknown) date) L unknown) (unknown) (no (unknown) (unknown) Pulse Rate 49 L 49 (units (unknown) date) L unknown) (unknown) (no (unknown) (unknown) Pulse Rate 50 L 50 (units (unknown) date) L unknown) (unknown) (no (unknown) (unknown) Pyridoxine 100 (units (unknown) date) Mg/Ml Vial IV 100 unknown) mg (unknown) (no (unknown) (unknown) Pyridoxine HCl 100 (units (unknown) date) mg 08/01/22 09:00 unknown) 08/02/22 09:55 (unknown) (no (unknown) (unknown) Q6HR SANDY (units (unkno wn) date) unknown) (unknown) (no (unknown) (unknown) RBC 3.71 L (units (unk nown) date) unknown) (unknown) (no (unknown) (unknown) RBC Morphology Not (units (unknown) date) Reportable unknown) (unknown) (no (unknown) (unknown) RDW 20.3 H (units (unk nown) date) unknown) (unknown) (no (unknown) (unknown) Recent events: (units (unknown) date) Patient's DT's unknown) improving. She was on Dex at 1 mcg/kg/hr this (unknown) (no (unknown) (unknown) Respiratory Rate (units (unknown) date) 16 15 unknown) (unknown) (no (unknown) (unknown) Respiratory Rate (units (unknown) date) 16 unknown) (unknown) (no (unknown) (unknown) Respiratory Rate (units (unknown) date) 17 16 unknown) (unknown) (no (unknown) (unknown) Respiratory Rate (units (unknown) date) 18 22 unknown) (unknown) (no (unknown) (unknown) Respiratory Rate (units (unknown) date) 19 19 unknown) (unknown) (no (unknown) (unknown) Respiratory Rate (units (unknown) date) 19 unknown) (unknown) (no (unknown) (unknown) Respiratory Rate (units (unknown) date) 20 17 unknown) (unknown) (no (unknown) (unknown) Signed (units (unkno wn) date) By:<Electronically unknown) signed by Riki Clay MD> (unknown) (no (unknown) (unknown) Sodium 134 L (units (u nknown) date) unknown) (unknown) (no (unknown) (unknown) Subjective (units (unk nown) date) unknown) (unknown) (no (unknown) (unknown) TITRATE SANDY 13.494 (units (unknown) date) mls/hr unknown) (unknown) (no (unknown) (unknown) Teleintensivist (units (unknown) date) Progress Note unknown) (unknown) (no (unknown) (unknown) Temperature 97.7 F (units (unknown) date) unknown) (unknown) (no (unknown) (unknown) Temperature 98.7 F (units (unknown) date) unknown) (unknown) (no (unknown) (unknown) Temperature (units (un known) date) unknown) (unknown) (no (unknown) (unknown) Thiamine HCl 100 (units (unknown) date) mg/ Sodium 101 mls unknown) @ 404 mls/hr 08/01/22 09:00 08/02/22 (unknown) (no (unknown) (unknown) Time Spent With (units (unknown) date) Patient unknown) (unknown) (no (unknown) (unknown) Time with patient: (units (unknown) date) 30 to 49 minutes unknown) with 50% spent counseling/coordina ting care (unknown) (no (unknown) (unknown) Trade Name Freq (units (unknown) date) PRN Reason Stop unknown) Dose Admin (unknown) (no (unknown) (unknown) Visit Medications (units (unknown) date) (administered) unknown) (unknown) (no (unknown) (unknown) Vital Signs (units (un known) date) unknown) (unknown) (no (unknown) (unknown) WBC 4.9 (units (unkno wn) date) unknown) (unknown) (no (unknown) (unknown) [Embedded Image (units (unknown) date) Not Available] unknown) (unknown) (no (unknown) (unknown) [Rx Confirmed (units ( unknown) date) 08/01/22] unknown) (unknown) (no (unknown) (unknown) agitation develops (units (unknown) date) later can consider unknown) additional doses of Phenobarn prn (unknown) (no (unknown) (unknown) communication: (units (unknown) date) Camera activated unknown) (unknown) (no (unknown) (unknown) dexmedeTOMIDine in (units (unknown) date) 0.9 % NaCL 400 mcg unknown) in 100 mls @ 26.989 mls/hr 08/01/22 (unknown) (no (unknown) (unknown) fluoxetine 10 mg (units (unknown) date) capsule 10 mg PO unknown) DAILY 07/13/22 [History Confirmed 08/01/22] (unknown) (no (unknown) (unknown) hydroxyzine HCl 50 (units (unknown) date) mg tablet 50 mg PO unknown) DAILY 07/13/22 [History Confirmed (unknown) (no (unknown) (unknown) maintenance fluid (units (unknown) date) D5LR unknown) (unknown) (no (unknown) (unknown) morning but then (units (unknown) date) her IV was lost so unknown) she is currently off Dex. (unknown) (no (unknown) (unknown) multivitamin with (units (unknown) date) folic acid 400 mcg unknown) tablet (Tab-A-Kael) 1 tab PO DAILY #30 tabs (unknown) (no (unknown) (unknown) pantoprazole 40 mg (units (unknown) date) tablet,delayed unknown) release 40 mg PO 0700 #30 tabs 07/14/22 [Rx (unknown) (no (unknown) (unknown) quetiapine 300 mg (units (unknown) date) tablet 300 mg PO unknown) DAILY 07/13/22 [History Confirmed 08/01/22] (unknown) (no (unknown) (unknown) thiamine (units (unkno wn) date) mononitrate (vit unknown) B1) 100 mg tablet 100 mg PO DAILY #30 tabs 07/14/22 (unknown) (no (unknown) (unknown) withrawal and DTS. (units (unknown) date) PT. given ativan, unknown) phenobarb, and placed on precedex drip. Result panel [id number] (unknown) (no date) (unknown) (unknown) 1.7 mg/dl (unkn own) Result panel [id number] (unknown) (no (unknown) (unknown) (no value) (units (unk nown) date) unknown) (unknown) (no (unknown) (unknown) (past 8 hours): (units (unknown) date) unknown) (unknown) (no (unknown) (unknown) [id number] (units (unkn own) date) unknown) (unknown) (no (unknown) (unknown) 01:00 08/03/22 (units (unknown) date) unknown) (unknown) (no (unknown) (unknown) 01:00 (units (unkno wn) date) unknown) (unknown) (no (unknown) (unknown) 01:30 08/03/22 (units (unknown) date) unknown) (unknown) (no (unknown) (unknown) 02:00 08/03/22 (units (unknown) date) unknown) (unknown) (no (unknown) (unknown) 02:00 (units (unkno wn) date) unknown) (unknown) (no (unknown) (unknown) 02:14 08/03/22 (units (unknown) date) unknown) (unknown) (no (unknown) (unknown) 02:30 08/03/22 (units (unknown) date) unknown) (unknown) (no (unknown) (unknown) 08/02/22 08/03/22 (units (unknown) date) unknown) (unknown) (no (unknown) (unknown) 08/03/22 07:50 (units (unknown) date) unknown) (unknown) (no (unknown) (unknown) 08/03/22 (units (unkno wn) date) unknown) (unknown) (no (unknown) (unknown) 03:00 08/03/22 (units (unknown) date) unknown) (unknown) (no (unknown) (unknown) 03:00 (units (unkno wn) date) unknown) (unknown) (no (unknown) (unknown) 03:30 (units (unkno wn) date) unknown) (unknown) (no (unknown) (unknown) 03:44 03/24/23 (units (unknown) date) unknown) (unknown) (no (unknown) (unknown) 04:00 08/03/22 (units (unknown) date) unknown) (unknown) (no (unknown) (unknown) 04:30 (units (unkno wn) date) unknown) (unknown) (no (unknown) (unknown) 05:00 08/03/22 (units (unknown) date) unknown) (unknown) (no (unknown) (unknown) 05:30 (units (unkno wn) date) unknown) (unknown) (no (unknown) (unknown) 06:00 08/03/22 (units (unknown) date) unknown) (unknown) (no (unknown) (unknown) 06:30 (units (unkno wn) date) unknown) (unknown) (no (unknown) (unknown) 07:00 08/03/22 (units (unknown) date) unknown) (unknown) (no (unknown) (unknown) 07:00 (units (unkno wn) date) unknown) (unknown) (no (unknown) (unknown) 21:20 07:50 (units (un known) date) unknown) (unknown) (no (unknown) (unknown) ABD: soft, (units (unk nown) date) nontender, unknown) nondistended, no organomegaly (unknown) (no (unknown) (unknown) Age/Sex: 31 / F (units (unknown) date) unknown) (unknown) (no (unknown) (unknown) Alcohol withdrawal (units (unknown) date) delirium, acute, unknown) hyperactive (unknown) (no (unknown) (unknown) Alcoholism (units (unk nown) date) unknown) (unknown) (no (unknown) (unknown) Anemia (-2018) (units (unknown) date) unknown) (unknown) (no (unknown) (unknown) Anisocytosis 1+ H (units (unknown) date) unknown) (unknown) (no (unknown) (unknown) Baso # (Auto) 0 (units (unknown) date) unknown) (unknown) (no (unknown) (unknown) Baso % (Auto) 0.4 (units (unknown) date) unknown) (unknown) (no (unknown) (unknown) Blood Pressure (units (unknown) date) 122/76 unknown) (unknown) (no (unknown) (unknown) Blood Pressure (units (unknown) date) 126/83 unknown) (unknown) (no (unknown) (unknown) Blood Pressure (units (unknown) date) 126/88 unknown) (unknown) (no (unknown) (unknown) Blood Pressure (units (unknown) date) 128/80 unknown) (unknown) (no (unknown) (unknown) Blood Pressure (units (unknown) date) 128/83 unknown) (unknown) (no (unknown) (unknown) Blood Pressure (units (unknown) date) 130/81 unknown) (unknown) (no (unknown) (unknown) Blood Pressure (units (unknown) date) 138/77 unknown) (unknown) (no (unknown) (unknown) Blood Pressure (units (unknown) date) unknown) (unknown) (no (unknown) (unknown) CV: regular rate (units (unknown) date) and rhythm, no unknown) murmurs (unknown) (no (unknown) (unknown) : 1990 (units (unknown) date) Acct:[id number] unknown) (unknown) (no (unknown) (unknown) Date of Service: (units (unknown) date) 08/01/22 unknown) (unknown) (no (unknown) (unknown) EXT: warm and well (units (unknown) date) perfused with no unknown) edema (unknown) (no (unknown) (unknown) Eos # (Auto) 100 (units (unknown) date) unknown) (unknown) (no (unknown) (unknown) Eos % (Auto) 2.5 (units (unknown) date) unknown) (unknown) (no (unknown) (unknown) Exam Narrative: (units (unknown) date) unknown) (unknown) (no (unknown) (unknown) Exam (units (unkno wn) date) unknown) (unknown) (no (unknown) (unknown) Family History (units (unknown) date) (Reviewed 08/01/22 unknown) @ 06:02 by Reinaldo Arthur DO) (unknown) (no (unknown) (unknown) Family/Other (units (u nknown) date) Alcoholism unknown) (unknown) (no (unknown) (unknown) Family/Other (units (u nknown) date) Diabetes mellitus unknown) (unknown) (no (unknown) (unknown) Father Alcoholism (units (unknown) date) unknown) (unknown) (no (unknown) (unknown) GEN: no acute (units ( unknown) date) distress, sleeping unknown) (unknown) (no (unknown) (unknown) Grandfather (units [...] extraction () unknown) (unknown) (no (unknown) (unknown) HEENT: moist (units (u nknown) date) mucous membranes, unknown) PERRL (unknown) (no (unknown) (unknown) Hct 29.7 L (units (unk nown) date) unknown) (unknown) (no (unknown) (unknown) Hgb 10.0 L (units (unk nown) date) unknown) (unknown) (no (unknown) (unknown) Insomnia (units (unkno wn) date) unknown) (unknown) (no (unknown) (unknown) [facility] (units (unknown) date) [address] [place] [address] unknown) [place] [address] (unknown) (no (unknown) (unknown) Laboratory Results (units (unknown) date) - last 24 hr unknown) (unknown) (no (unknown) (unknown) Labs (units (unkno wn) date) unknown) (unknown) (no (unknown) (unknown) Labs: (units (unkno wn) date) unknown) (unknown) (no (unknown) (unknown) Lymph # (Auto) (units (unknown) date) 1300 unknown) (unknown) (no (unknown) (unknown) Lymph % (Auto) (units (unknown) date) 26.4 unknown) (unknown) (no (unknown) (unknown) MCH 27.0 (units (unkno wn) date) unknown) (unknown) (no (unknown) (unknown) MCHC 33.7 (units (unkn own) date) unknown) (unknown) (no (unknown) (unknown) MCV 80.1 (units (unkno wn) date) unknown) (unknown) (no (unknown) (unknown) Medical History (units (unknown) date) (Reviewed 08/01/22 unknown) @ 06:02 by Reinaldo Artuhr DO) (unknown) (no (unknown) (unknown) Menometrorrhagia (units (unknown) date) unknown) (unknown) (no (unknown) (unknown) Yates # (Auto) 400 (units (unknown) date) unknown) (unknown) (no (unknown) (unknown) Yates % (Auto) 7.7 (units (unknown) date) unknown) (unknown) (no (unknown) (unknown) Mother Diabetes (units (unknown) date) mellitus unknown) (unknown) (no (unknown) (unknown) NECK: trachea (units ( unknown) date) midline, no JVD unknown) (unknown) (no (unknown) (unknown) NEURO: no focal (units (unknown) date) deficits unknown) (unknown) (no (unknown) (unknown) Narrative (units (unkn own) date) unknown) (unknown) (no (unknown) (unknown) Neut # (Auto) 3100 (units (unknown) date) unknown) (unknown) (no (unknown) (unknown) Neut % (Auto) 63.0 (units (unknown) date) unknown) (unknown) (no (unknown) (unknown) Obesity (units (unkno wn) date) unknown) (unknown) (no (unknown) (unknown) Objective (units (unkn own) date) unknown) (unknown) (no (unknown) (unknown) Overweight (units (unk nown) date) unknown) (unknown) (no (unknown) (unknown) Oxygen Delivery (units (unknown) date) Method Room Air unknown) (unknown) (no (unknown) (unknown) Oxygen Delivery (units (unknown) date) Method unknown) (unknown) (no (unknown) (unknown) Oxygen Flow Rate 0 (units (unknown) date) unknown) (unknown) (no (unknown) (unknown) PFSH (units (unkno wn) date) unknown) (unknown) (no (unknown) (unknown) PULM: clear (units (un known) date) bilaterally unknown) (unknown) (no (unknown) (unknown) Patient: (units (unkno wn) date) Sarah Connors R unknown) MR#: M (unknown) (no (unknown) (unknown) Plt Count 155 (units ( unknown) date) unknown) (unknown) (no (unknown) (unknown) Potassium 3.8 (units ( unknown) date) unknown) (unknown) (no (unknown) (unknown) Progress Note (units ( unknown) date) unknown) (unknown) (no (unknown) (unknown) Provider: (units (unkn own) date) Jabari Sena unknown) D.O. (unknown) (no (unknown) (unknown) Pulse Oximetry 94 (units (unknown) date) unknown) (unknown) (no (unknown) (unknown) Pulse Oximetry 95 (units (unknown) date) 98 unknown) (unknown) (no (unknown) (unknown) Pulse Oximetry 98 (units (unknown) date) 98 unknown) (unknown) (no (unknown) (unknown) Pulse Oximetry 98 (units (unknown) date) unknown) (unknown) (no (unknown) (unknown) Pulse Oximetry 99 (units (unknown) date) 100 unknown) (unknown) (no (unknown) (unknown) Pulse Oximetry 99 (units (unknown) date) 98 unknown) (unknown) (no (unknown) (unknown) Pulse Oximetry 99 (units (unknown) date) unknown) (unknown) (no (unknown) (unknown) Pulse Rate 45 L (units (unknown) date) unknown) (unknown) (no (unknown) (unknown) Pulse Rate 46 L 46 (units (unknown) date) L unknown) (unknown) (no (unknown) (unknown) Pulse Rate 47 L 48 (units (unknown) date) L unknown) (unknown) (no (unknown) (unknown) Pulse Rate 47 L (units (unknown) date) unknown) (unknown) (no (unknown) (unknown) Pulse Rate 48 L (units (unknown) date) unknown) (unknown) (no (unknown) (unknown) Pulse Rate 49 L 47 (units (unknown) date) L unknown) (unknown) (no (unknown) (unknown) Pulse Rate 49 L 49 (units (unknown) date) L unknown) (unknown) (no (unknown) (unknown) Pulse Rate 50 L 50 (units (unknown) date) L unknown) (unknown) (no (unknown) (unknown) RBC 3.71 L (units (unk nown) date) unknown) (unknown) (no (unknown) (unknown) RBC Morphology Not (units (unknown) date) Reportable unknown) (unknown) (no (unknown) (unknown) RDW 20.3 H (units (unk nown) date) unknown) (unknown) (no (unknown) (unknown) Respiratory Rate (units (unknown) date) 16 15 unknown) (unknown) (no (unknown) (unknown) Respiratory Rate (units (unknown) date) 16 unknown) (unknown) (no (unknown) (unknown) Respiratory Rate (units (unknown) date) 17 16 unknown) (unknown) (no (unknown) (unknown) Respiratory Rate (units (unknown) date) 18 22 unknown) (unknown) (no (unknown) (unknown) Respiratory Rate (units (unknown) date) 19 19 unknown) (unknown) (no (unknown) (unknown) Respiratory Rate (units (unknown) date) 19 unknown) (unknown) (no (unknown) (unknown) Respiratory Rate (units (unknown) date) 20 17 unknown) (unknown) (no (unknown) (unknown) S/P myringotomy [...] (unknown) Social History (units (unknown) date) (Reviewed 08/01/22 unknown) @ 06:02 by Reinaldo Arthur DO) (unknown) (no (unknown) (unknown) Surgical History (units (unknown) date) (Reviewed 08/01/22 unknown) @ 06:02 by Reinaldo Arthur DO) (unknown) (no (unknown) (unknown) Temperature 97.7 F (units (unknown) date) unknown) (unknown) (no (unknown) (unknown) Temperature 98.7 F (units (unknown) date) unknown) (unknown) (no (unknown) (unknown) Temperature (units (un known) date) unknown) (unknown) (no (unknown) (unknown) Vital Signs (units (un known) date) unknown) (unknown) (no (unknown) (unknown) WBC 4.9 (units (unkno wn) date) unknown) (unknown) (no (unknown) (unknown) [Embedded Image (units (unknown) date) Not Available] unknown) (unknown) (no (unknown) (unknown) alcohol intake: (units (unknown) date) current unknown) (unknown) (no (unknown) (unknown) current (units (unkno wn) date) occupational unknown) exposures/hazards: Yes (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 with Pandemic ) (unknown) (no (unknown) (unknown) education level: (units (unknown) date) college unknown) (unknown) (no (unknown) (unknown) renee/zoroastrianism: (units (unknown) date) Buddhist unknown) (unknown) (no (unknown) (unknown) household members: (units (unknown) date) significant other unknown) (unknown) (no (unknown) (unknown) marital status: (units (unknown) date) unknown) (unknown) (no (unknown) (unknown) number of (units (unkn own) date) children: 1 unknown) (unknown) (no (unknown) (unknown) occupational (units (u nknown) date) status: employed unknown) (unknown) (no (unknown) (unknown) second hand (units (un known) date) exposure: No unknown) (growing up as a child - not currently) (unknown) (no (unknown) (unknown) special renee (units ( unknown) date) needs: No unknown) (unknown) (no (unknown) (unknown) substance use (units ( unknown) date) type: does not use unknown) Result panel [id number] (unknown) (no (unknown) (unknown) (no value) (units (unk nown) date) unknown) (unknown) (no (unknown) (unknown) (past 8 hours): (units (unknown) date) unknown) (unknown) (no (unknown) (unknown) [phone] (units (unkn own) date) unknown) (unknown) (no (unknown) (unknown) 01:00 08/03/22 (units (unknown) date) unknown) (unknown) (no (unknown) (unknown) 01:00 (units (unkno wn) date) unknown) (unknown) (no (unknown) (unknown) 01:30 08/03/22 (units (unknown) date) unknown) (unknown) (no (unknown) (unknown) 02:00 08/03/22 (units (unknown) date) unknown) (unknown) (no (unknown) (unknown) 02:00 (units (unkno wn) date) unknown) (unknown) (no (unknown) (unknown) 02:14 08/03/22 (units (unknown) date) unknown) (unknown) (no (unknown) (unknown) 02:30 08/03/22 (units (unknown) date) unknown) (unknown) (no (unknown) (unknown) 08/02/22 08/03/22 (units (unknown) date) unknown) (unknown) (no (unknown) (unknown) 08/03/22 07:50 (units (unknown) date) unknown) (unknown) (no (unknown) (unknown) 08/03/22 (units (unkno wn) date) unknown) (unknown) (no (unknown) (unknown) 03:00 08/03/22 (units (unknown) date) unknown) (unknown) (no (unknown) (unknown) 03:00 (units (unkno wn) date) unknown) (unknown) (no (unknown) (unknown) 03:30 (units (unkno wn) date) unknown) (unknown) (no (unknown) (unknown) 03:44 08/03/22 (units (unknown) date) unknown) (unknown) (no (unknown) (unknown) 04:00 08/03/22 (units (unknown) date) unknown) (unknown) (no (unknown) (unknown) 04:30 (units (unkno wn) date) unknown) (unknown) (no (unknown) (unknown) 05:00 08/03/22 (units (unknown) date) unknown) (unknown) (no (unknown) (unknown) 05:30 (units (unkno wn) date) unknown) (unknown) (no (unknown) (unknown) 06:00 08/03/22 (units (unknown) date) unknown) (unknown) (no (unknown) (unknown) 06:30 (units (unkno wn) date) unknown) (unknown) (no (unknown) (unknown) 07:00 08/03/22 (units (unknown) date) unknown) (unknown) (no (unknown) (unknown) 07:00 (units (unkno wn) date) unknown) (unknown) (no (unknown) (unknown) 21:20 07:50 (units (un known) date) unknown) (unknown) (no (unknown) (unknown) ABD: soft, (units (unk nown) date) nontender, unknown) nondistended, no organomegaly (unknown) (no (unknown) (unknown) Age/Sex: 31 / F (units (unknown) date) unknown) (unknown) (no (unknown) (unknown) Alcohol withdrawal (units (unknown) date) delirium, acute, unknown) hyperactive (unknown) (no (unknown) (unknown) Alcoholism (units (unk nown) date) unknown) (unknown) (no (unknown) (unknown) Anemia (-2018) (units (unknown) date) unknown) (unknown) (no (unknown) (unknown) Anisocytosis 1+ H (units (unknown) date) unknown) (unknown) (no (unknown) (unknown) Baso # (Auto) 0 (units (unknown) date) unknown) (unknown) (no (unknown) (unknown) Baso % (Auto) 0.4 (units (unknown) date) unknown) (unknown) (no (unknown) (unknown) Blood Pressure (units (unknown) date) 122/76 unknown) (unknown) (no (unknown) (unknown) Blood Pressure (units (unknown) date) 126/83 unknown) (unknown) (no (unknown) (unknown) Blood Pressure (units (unknown) date) 126/88 unknown) (unknown) (no (unknown) (unknown) Blood Pressure (units (unknown) date) 128/80 unknown) (unknown) (no (unknown) (unknown) Blood Pressure (units (unknown) date) 128/83 unknown) (unknown) (no (unknown) (unknown) Blood Pressure (units (unknown) date) 130/81 unknown) (unknown) (no (unknown) (unknown) Blood Pressure (units (unknown) date) 138/77 unknown) (unknown) (no (unknown) (unknown) Blood Pressure (units (unknown) date) unknown) (unknown) (no (unknown) (unknown) CV: regular rate (units (unknown) date) and rhythm, no unknown) murmurs (unknown) (no (unknown) (unknown) : 1990 (units (unknown) date) Acct:[id number] unknown) (unknown) (no (unknown) (unknown) Date of Service: (units (unknown) date) 08/01/22 unknown) (unknown) (no (unknown) (unknown) EXT: warm and well (units (unknown) date) perfused with no unknown) edema (unknown) (no (unknown) (unknown) Eos # (Auto) 100 (units (unknown) date) unknown) (unknown) (no (unknown) (unknown) Eos % (Auto) 2.5 (units (unknown) date) unknown) (unknown) (no (unknown) (unknown) Exam Narrative: (units (unknown) date) unknown) (unknown) (no (unknown) (unknown) Exam (units (unkno wn) date) unknown) (unknown) (no (unknown) (unknown) Family History (units (unknown) date) (Reviewed 08/01/22 unknown) @ 06:02 by Reinaldo Arthur DO) (unknown) (no (unknown) (unknown) Family/Other (units (u nknown) date) Alcoholism unknown) (unknown) (no (unknown) (unknown) Family/Other (units (u nknown) date) Diabetes mellitus unknown) (unknown) (no (unknown) (unknown) Father Alcoholism (units (unknown) date) unknown) (unknown) (no (unknown) (unknown) GEN: no acute (units ( unknown) date) distress, sleeping unknown) (unknown) (no (unknown) (unknown) Grandfather (units [...] extraction (-2013) unknown) (unknown) (no (unknown) (unknown) HEENT: moist (units (u nknown) date) mucous membranes, unknown) PERRL (unknown) (no (unknown) (unknown) Hct 29.7 L (units (unk nown) date) unknown) (unknown) (no (unknown) (unknown) Hgb 10.0 L (units (unk nown) date) unknown) (unknown) (no (unknown) (unknown) Insomnia (units (unkno wn) date) unknown) (unknown) (no (unknown) (unknown) [facility] (units (unknown) date) [address] unknown) [place] [address] (unknown) (no (unknown) (unknown) Laboratory Results (units (unknown) date) - last 24 hr unknown) (unknown) (no (unknown) (unknown) Labs (units (unkno wn) date) unknown) (unknown) (no (unknown) (unknown) Labs: (units (unkno wn) date) unknown) (unknown) (no (unknown) (unknown) Lymph # (Auto) (units (unknown) date) 1300 unknown) (unknown) (no (unknown) (unknown) Lymph % (Auto) (units (unknown) date) 26.4 unknown) (unknown) (no (unknown) (unknown) MCH 27.0 (units (unkno wn) date) unknown) (unknown) (no (unknown) (unknown) MCHC 33.7 (units (unkn own) date) unknown) (unknown) (no (unknown) (unknown) MCV 80.1 (units (unkno wn) date) unknown) (unknown) (no (unknown) (unknown) Medical History (units (unknown) date) (Reviewed 08/01/22 unknown) @ 06:02 by Reinaldo Arthur DO) (unknown) (no (unknown) (unknown) Menometrorrhagia (units (unknown) date) unknown) (unknown) (no (unknown) (unknown) Yates # (Auto) 400 (units (unknown) date) unknown) (unknown) (no (unknown) (unknown) Yates % (Auto) 7.7 (units (unknown) date) unknown) (unknown) (no (unknown) (unknown) Mother Diabetes (units (unknown) date) mellitus unknown) (unknown) (no (unknown) (unknown) NECK: trachea (units ( unknown) date) midline, no JVD unknown) (unknown) (no (unknown) (unknown) NEURO: no focal (units (unknown) date) deficits unknown) (unknown) (no (unknown) (unknown) Narrative (units (unkn own) date) unknown) (unknown) (no (unknown) (unknown) Neut # (Auto) 3100 (units (unknown) date) unknown) (unknown) (no (unknown) (unknown) Neut % (Auto) 63.0 (units (unknown) date) unknown) (unknown) (no (unknown) (unknown) Obesity (units (unkno wn) date) unknown) (unknown) (no (unknown) (unknown) Objective (units (unkn own) date) unknown) (unknown) (no (unknown) (unknown) Overweight (units (unk nown) date) unknown) (unknown) (no (unknown) (unknown) Oxygen Delivery (units (unknown) date) Method Room Air unknown) (unknown) (no (unknown) (unknown) Oxygen Delivery (units (unknown) date) Method unknown) (unknown) (no (unknown) (unknown) Oxygen Flow Rate 0 (units (unknown) date) unknown) (unknown) (no (unknown) (unknown) PFSH (units (unkno wn) date) unknown) (unknown) (no (unknown) (unknown) PULM: clear (units (un known) date) bilaterally unknown) (unknown) (no (unknown) (unknown) Patient: (units (unkno wn) date) Sarah Connors unknown) MR#: M (unknown) (no (unknown) (unknown) Plt Count 155 (units ( unknown) date) unknown) (unknown) (no (unknown) (unknown) Potassium 3.8 (units ( unknown) date) unknown) (unknown) (no (unknown) (unknown) Progress Note (units ( unknown) date) unknown) (unknown) (no (unknown) (unknown) Provider: (units (unkn own) date) Jabari Sena unknown) D.O. (unknown) (no (unknown) (unknown) Pulse Oximetry 94 (units (unknown) date) unknown) (unknown) (no (unknown) (unknown) Pulse Oximetry 95 (units (unknown) date) 98 unknown) (unknown) (no (unknown) (unknown) Pulse Oximetry 98 (units (unknown) date) 98 unknown) (unknown) (no (unknown) (unknown) Pulse Oximetry 98 (units (unknown) date) unknown) (unknown) (no (unknown) (unknown) Pulse Oximetry 99 (units (unknown) date) 100 unknown) (unknown) (no (unknown) (unknown) Pulse Oximetry 99 (units (unknown) date) 98 unknown) (unknown) (no (unknown) (unknown) Pulse Oximetry 99 (units (unknown) date) unknown) (unknown) (no (unknown) (unknown) Pulse Rate 45 L (units (unknown) date) unknown) (unknown) (no (unknown) (unknown) Pulse Rate 46 L 46 (units (unknown) date) L unknown) (unknown) (no (unknown) (unknown) Pulse Rate 47 L 48 (units (unknown) date) L unknown) (unknown) (no (unknown) (unknown) Pulse Rate 47 L (units (unknown) date) unknown) (unknown) (no (unknown) (unknown) Pulse Rate 48 L (units (unknown) date) unknown) (unknown) (no (unknown) (unknown) Pulse Rate 49 L 47 (units (unknown) date) L unknown) (unknown) (no (unknown) (unknown) Pulse Rate 49 L 49 (units (unknown) date) L unknown) (unknown) (no (unknown) (unknown) Pulse Rate 50 L 50 (units (unknown) date) L unknown) (unknown) (no (unknown) (unknown) RBC 3.71 L (units (unk nown) date) unknown) (unknown) (no (unknown) (unknown) RBC Morphology Not (units (unknown) date) Reportable unknown) (unknown) (no (unknown) (unknown) RDW 20.3 H (units (unk nown) date) unknown) (unknown) (no (unknown) (unknown) Respiratory Rate (units (unknown) date) 16 15 unknown) (unknown) (no (unknown) (unknown) Respiratory Rate (units (unknown) date) 16 unknown) (unknown) (no (unknown) (unknown) Respiratory Rate (units (unknown) date) 17 16 unknown) (unknown) (no (unknown) (unknown) Respiratory Rate (units (unknown) date) 18 22 unknown) (unknown) (no (unknown) (unknown) Respiratory Rate (units (unknown) date) 19 19 unknown) (unknown) (no (unknown) (unknown) Respiratory Rate (units (unknown) date) 19 unknown) (unknown) (no (unknown) (unknown) Respiratory Rate (units (unknown) date) 20 17 unknown) (unknown) (no (unknown) (unknown) S/P myringotomy [...] (unknown) Social History (units (unknown) date) (Reviewed 08/01/22 unknown) @ 06:02 by Reinaldo Arthur DO) (unknown) (no (unknown) (unknown) Surgical History (units (unknown) date) (Reviewed 08/01/22 unknown) @ 06:02 by Reinaldo Arthur DO) (unknown) (no (unknown) (unknown) Temperature 97.7 F (units (unknown) date) unknown) (unknown) (no (unknown) (unknown) Temperature 98.7 F (units (unknown) date) unknown) (unknown) (no (unknown) (unknown) Temperature (units (un known) date) unknown) (unknown) (no (unknown) (unknown) Vital Signs (units (un known) date) unknown) (unknown) (no (unknown) (unknown) WBC 4.9 (units (unkno wn) date) unknown) (unknown) (no (unknown) (unknown) [Embedded Image (units (unknown) date) Not Available] unknown) (unknown) (no (unknown) (unknown) alcohol intake: (units (unknown) date) current unknown) (unknown) (no (unknown) (unknown) current (units (unkno wn) date) occupational unknown) exposures/hazards: Yes (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 with Pandemic ) (unknown) (no (unknown) (unknown) education level: (units (unknown) date) college unknown) (unknown) (no (unknown) (unknown) renee/zoroastrianism: (units (unknown) date) Buddhist unknown) (unknown) (no (unknown) (unknown) household members: (units (unknown) date) significant other unknown) (unknown) (no (unknown) (unknown) marital status: (units (unknown) date) unknown) (unknown) (no (unknown) (unknown) number of (units (unkn own) date) children: 1 unknown) (unknown) (no (unknown) (unknown) occupational (units (u nknown) date) status: employed unknown) (unknown) (no (unknown) (unknown) second hand (units (un known) date) exposure: No unknown) (growing up as a child - not currently) (unknown) (no (unknown) (unknown) special renee (units ( unknown) date) needs: No unknown) (unknown) (no (unknown) (unknown) substance use (units ( unknown) date) type: does not use unknown) Result panel [id number] (unknown) (no (unknown) (unknown) (no value) (units (unk nown) date) unknown) (unknown) (no (unknown) (unknown) # Acute on chronic (units (unknown) date) moderate protein unknown) calorie malnutrition r/t excessive ETOH aeb (unknown) (no (unknown) (unknown) # GERD (units (unkno wn) date) unknown) (unknown) (no (unknown) (unknown) # acute alcohol (units (unknown) date) withdrawal with unknown) delirium tremens (unknown) (no (unknown) (unknown) # depression and (units (unknown) date) anxiety unknown) (unknown) (no (unknown) (unknown) # normocytic (units (u nknown) date) anemia unknown) (unknown) (no (unknown) (unknown) # 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, barbiturates, and alcohol (unknown) (no (unknown) (unknown) (past 8 hours): (units (unknown) date) unknown) (unknown) (no (unknown) (unknown) -B12/folate normal (units (unknown) date) unknown) (unknown) (no (unknown) (unknown) -CIWA protocol (units (unknown) date) with Ativan, unknown) phenobarbital 60 mg IV b.i.d., Librium 50 q.6 hours (unknown) (no (unknown) (unknown) -DCR evaluated (units (unknown) date) patient and deemed unknown) her safe to discharge home with her (unknown) (no (unknown) (unknown) -MV, thiamine and (units (unknown) date) B6 daily unknown) (unknown) (no (unknown) (unknown) -able to wean off (units (unknown) date) precedex after 2 unknown) days to just librium po (unknown) (no (unknown) (unknown) -appears to be (units (unknown) date) chronic unknown) (unknown) (no (unknown) (unknown) -continue PPI (units ( unknown) date) unknown) (unknown) (no (unknown) (unknown) -continue Precedex (units (unknown) date) drip until and unknown) benzos and barbiturates can take effect (unknown) (no (unknown) (unknown) -continue home (units (unknown) date) Prozac when able to unknown) take po (unknown) (no (unknown) (unknown) -mentation (units (unk nown) date) returned to unknown) baseline after 2 days (unknown) (no (unknown) (unknown) -no evidence of (units (unknown) date) bleeding unknown) (unknown) (no (unknown) (unknown) -patient states (units (unknown) date) last drink 5 days unknown) ago, but unclear if true given current (unknown) (no (unknown) (unknown) -patient very (units ( unknown) date) agitated in ED and unknown) required precedex drip (unknown) (no (unknown) (unknown) -sent home on (units ( unknown) date) librium taper as unknown) well as antabuse per patient's request (unknown) (no (unknown) (unknown) [phone] (units (unkn own) date) unknown) (unknown) (no (unknown) (unknown) 08/01/22 07:42 (units (unknown) date) unknown) (unknown) (no (unknown) (unknown) 08/01/22 08:13 (units (unknown) date) unknown) (unknown) (no (unknown) (unknown) 08/01/22 08:42 (units (unknown) date) unknown) (unknown) (no (unknown) (unknown) 08/01/22 09:53 (units (unknown) date) unknown) (unknown) (no (unknown) (unknown) 08/02/22 08/03/22 (units (unknown) date) 08/03/22 unknown) (unknown) (no (unknown) (unknown) 08/02/22 10:20 (units (unknown) date) unknown) (unknown) (no (unknown) (unknown) 08/03/22 07:50 (units (unknown) date) unknown) (unknown) (no (unknown) (unknown) 08/03/22 1429 (units ( unknown) date) unknown) (unknown) (no (unknown) (unknown) 08/03/22 (units (unkno wn) date) unknown) (unknown) (no (unknown) (unknown) 06:30 08/03/22 (units (unknown) date) unknown) (unknown) (no (unknown) (unknown) 07:00 08/03/22 (units (unknown) date) unknown) (unknown) (no (unknown) (unknown) 07:00 (units (unkno wn) date) unknown) (unknown) (no (unknown) (unknown) 07:30 08/03/22 (units (unknown) date) unknown) (unknown) (no (unknown) (unknown) 07:50 (units (unkno wn) date) unknown) (unknown) (no (unknown) (unknown) 08:00 03/24/23 (units (unknown) date) unknown) (unknown) (no (unknown) (unknown) 08:00 (units (unkno wn) date) unknown) (unknown) (no (unknown) (unknown) 08:30 08/03/22 (units (unknown) date) unknown) (unknown) (no (unknown) (unknown) 09:00 08/03/22 (units (unknown) date) unknown) (unknown) (no (unknown) (unknown) 09:00 (units (unkno wn) date) unknown) (unknown) (no (unknown) (unknown) 09:30 08/03/22 (units (unknown) date) unknown) (unknown) (no (unknown) (unknown) 1 tab PO DAILY (units (unknown) date) Qty: 30 0RF unknown) (unknown) (no (unknown) (unknown) 10 mg PO DAILY (units (unknown) date) unknown) (unknown) (no (unknown) (unknown) 100 mg PO DAILY (units (unknown) date) Qty: 30 0RF unknown) (unknown) (no (unknown) (unknown) 10:00 08/03/22 (units (unknown) date) unknown) (unknown) (no (unknown) (unknown) 10:00 (units (unkno wn) date) unknown) (unknown) (no (unknown) (unknown) 10:30 (units (unkno wn) date) unknown) (unknown) (no (unknown) (unknown) 21:20 07:50 07:50 (units (unknown) date) unknown) (unknown) (no (unknown) (unknown) 25 mg orally 3 (units (unknown) date) times daily for 2 unknown) days, then 2 times daily for 2 days then (unknown) (no (unknown) (unknown) 250 mg PO DAILY (units (unknown) date) Qty: 30 0RF unknown) (unknown) (no (unknown) (unknown) 300 mg PO DAILY (units (unknown) date) unknown) (unknown) (no (unknown) (unknown) 40 mg PO 0700 Qty: (units (unknown) date) 30 0RF unknown) (unknown) (no (unknown) (unknown) 50 mg PO DAILY (units (unknown) date) unknown) (unknown) (no (unknown) (unknown) ABD: soft, (units (unk nown) date) nontender, unknown) nondistended, no organomegaly (unknown) (no (unknown) (unknown) Admitted for acute (units (unknown) date) alcohol withdrawals unknown) requiring phenobarb, precedex and IV (unknown) (no (unknown) (unknown) Age/Sex: 31 / F (units (unknown) date) unknown) (unknown) (no (unknown) (unknown) Alcohol withdrawal (units (unknown) date) delirium, acute, unknown) hyperactive (unknown) (no (unknown) (unknown) Alcoholism (units (unk nown) date) unknown) (unknown) (no (unknown) (unknown) Anemia (-2018) (units (unknown) date) unknown) (unknown) (no (unknown) (unknown) Anisocytosis 1+ H (units (unknown) date) unknown) (unknown) (no (unknown) (unknown) Anisocytosis (units (u nknown) date) unknown) (unknown) (no (unknown) (unknown) BUN 2 L (units (unkno wn) date) unknown) (unknown) (no (unknown) (unknown) BUN (units (unkno wn) date) unknown) (unknown) (no (unknown) (unknown) BUN/Creatinine (units (unknown) date) Ratio 3.6 L unknown) (unknown) (no (unknown) (unknown) BUN/Creatinine (units (unknown) date) Ratio unknown) (unknown) (no (unknown) (unknown) Baso # (Auto) 0 (units (unknown) date) unknown) (unknown) (no (unknown) (unknown) Baso # (Auto) (units ( unknown) date) unknown) (unknown) (no (unknown) (unknown) Baso % (Auto) 0.4 (units (unknown) date) unknown) (unknown) (no (unknown) (unknown) Baso % (Auto) (units ( unknown) date) unknown) (unknown) (no (unknown) (unknown) Blood Pressure (units (unknown) date) 121/69 unknown) (unknown) (no (unknown) (unknown) Blood Pressure (units (unknown) date) 122/82 unknown) (unknown) (no (unknown) (unknown) Blood Pressure (units (unknown) date) 130/81 unknown) (unknown) (no (unknown) (unknown) Blood Pressure (units (unknown) date) unknown) (unknown) (no (unknown) (unknown) CV: regular rate (units (unknown) date) and rhythm, no unknown) murmurs (unknown) (no (unknown) (unknown) Calcium 8.1 L (units ( unknown) date) unknown) (unknown) (no (unknown) (unknown) Calcium (units (unkno wn) date) unknown) (unknown) (no (unknown) (unknown) Carbon Dioxide 28 (units (unknown) date) unknown) (unknown) (no (unknown) (unknown) Carbon Dioxide (units (unknown) date) unknown) (unknown) (no (unknown) (unknown) Chief complaint: (units (unknown) date) Altered LOC unknown) (unknown) (no (unknown) (unknown) Chloride 101 (units (u nknown) date) unknown) (unknown) (no (unknown) (unknown) Chloride (units (unkno wn) date) unknown) (unknown) (no (unknown) (unknown) Comment: (units (unkno wn) date) unknown) (unknown) (no (unknown) (unknown) Consult to (units (unk nown) date) Dietitian, Adult unknown) Routine (unknown) (no (unknown) (unknown) Consult to [facility] - (units (unknown) date) 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 unknown) Stat (unknown) (no (unknown) (unknown) Consult to Social (units (unknown) date) Services Routine unknown) (unknown) (no (unknown) (unknown) Consult to (units (unk nown) date) Tele-baseball scout unknown) Routine (unknown) (no (unknown) (unknown) Consulting (units (unk nown) date) Provider: Intercept unknown) Tele-intensivists (unknown) (no (unknown) (unknown) Consults: (units (unkn own) date) unknown) (unknown) (no (unknown) (unknown) Continued (units (unkn own) date) unknown) (unknown) (no (unknown) (unknown) Creatinine 0.55 (units (unknown) date) unknown) (unknown) (no (unknown) (unknown) Creatinine (units (unk nown) date) unknown) (unknown) (no (unknown) (unknown) : 1990 (units (unknown) date) Acct:[id number] unknown) (unknown) (no (unknown) (unknown) Date Patient Seen: (units (unknown) date) 08/03/22 unknown) (unknown) (no (unknown) (unknown) Date of Service: (units (unknown) date) 08/01/22 unknown) (unknown) (no (unknown) (unknown) Date of admission: (units (unknown) date) unknown) (unknown) (no (unknown) (unknown) Discharge Data (units (unknown) date) unknown) (unknown) (no (unknown) (unknown) Discharge Date: (units (unknown) date) 08/03/22 unknown) (unknown) (no (unknown) (unknown) Discharge (units (unkn own) date) Diagnosis: unknown) (unknown) (no (unknown) (unknown) Discharge Plan (units (unknown) date) unknown) (unknown) (no (unknown) (unknown) Discharge (units (unkn own) date) Providers unknown) (unknown) (no (unknown) (unknown) Discharge Summary (units (unknown) date) unknown) (unknown) (no (unknown) (unknown) Discharge orders + (units (unknown) date) Medications unknown) (unknown) (no (unknown) (unknown) Discharge (units (unkn own) date) provider: unknown) (unknown) (no (unknown) (unknown) EXT: warm and well (units (unknown) date) perfused with no unknown) edema (unknown) (no (unknown) (unknown) Eos # (Auto) 100 (units (unknown) date) unknown) (unknown) (no (unknown) (unknown) Eos # (Auto) (units (u nknown) date) unknown) (unknown) (no (unknown) (unknown) Eos % (Auto) 2.5 (units (unknown) date) unknown) (unknown) (no (unknown) (unknown) Eos % (Auto) (units (u nknown) date) unknown) (unknown) (no (unknown) (unknown) Estimated GFR > 60 (units (unknown) date) unknown) (unknown) (no (unknown) (unknown) Estimated GFR (units ( unknown) date) unknown) (unknown) (no (unknown) (unknown) Exam Narrative: (units (unknown) date) unknown) (unknown) (no (unknown) (unknown) Exam (units (unkno wn) date) unknown) (unknown) (no (unknown) (unknown) Family History (units (unknown) date) (Reviewed 08/01/22 unknown) @ 06:02 by Reinaldo Arthur DO) (unknown) (no (unknown) (unknown) Family/Other (units (u nknown) date) Alcoholism unknown) (unknown) (no (unknown) (unknown) Family/Other (units (u nknown) date) Diabetes mellitus unknown) (unknown) (no (unknown) (unknown) Father Alcoholism (units (unknown) date) unknown) (unknown) (no (unknown) (unknown) Tonia Schneider MD (units (unknown) date) [Primary Care unknown) Provider] (unknown) (no (unknown) (unknown) Follow (units (unkno wn) date) up/Referrals: unknown) (unknown) (no (unknown) (unknown) GEN: no acute (units ( unknown) date) distress, sarcastic unknown) (unknown) (no (unknown) (unknown) Glucose 131 H (units ( unknown) date) unknown) (unknown) (no (unknown) (unknown) Glucose (units (unkno wn) date) unknown) (unknown) (no [...] extraction () unknown) (unknown) (no (unknown) (unknown) HEENT: moist (units (u nknown) date) mucous membranes, unknown) PERRL (unknown) (no (unknown) (unknown) Hct 29.7 L (units (unk nown) date) unknown) (unknown) (no (unknown) (unknown) Hct (units (unkno wn) date) unknown) (unknown) (no (unknown) (unknown) Hgb 10.0 L (units (unk nown) date) unknown) (unknown) (no (unknown) (unknown) Hgb (units (unkno wn) date) unknown) (unknown) (no (unknown) (unknown) History of Present (units (unknown) date) Illness unknown) (unknown) (no (unknown) (unknown) Hospital Course (units (unknown) date) unknown) (unknown) (no (unknown) (unknown) Hospital Course: (units (unknown) date) unknown) (unknown) (no (unknown) (unknown) Insomnia (units (unkno wn) date) unknown) (unknown) (no (unknown) (unknown) [facility] (units (unknown) date) [address] unknown) [place] [address] (unknown) (no (unknown) (unknown) Laboratory Results (units (unknown) date) - last 24 hr unknown) (unknown) (no (unknown) (unknown) Labs (units (unkno wn) date) unknown) (unknown) (no (unknown) (unknown) Labs: (units (unkno wn) date) unknown) (unknown) (no (unknown) (unknown) Lymph # (Auto) (units (unknown) date) 1300 unknown) (unknown) (no (unknown) (unknown) Lymph # (Auto) (units (unknown) date) unknown) (unknown) (no (unknown) (unknown) Lymph % (Auto) (units (unknown) date) 26.4 unknown) (unknown) (no (unknown) (unknown) Lymph % (Auto) (units (unknown) date) unknown) (unknown) (no (unknown) (unknown) MCH 27.0 (units (unkno wn) date) unknown) (unknown) (no (unknown) (unknown) MCH (units (unkno wn) date) unknown) (unknown) (no (unknown) (unknown) MCHC 33.7 (units (unkn own) date) unknown) (unknown) (no (unknown) (unknown) MCHC (units (unkno wn) date) unknown) (unknown) (no (unknown) (unknown) MCV 80.1 (units (unkno wn) date) unknown) (unknown) (no (unknown) (unknown) MCV (units (unkno wn) date) unknown) (unknown) (no (unknown) (unknown) Magnesium 1.7 (units ( unknown) date) unknown) (unknown) (no (unknown) (unknown) Magnesium (units (unkn own) date) unknown) (unknown) (no (unknown) (unknown) Jabari Sena, (units (unknown) date) DO unknown) (unknown) (no (unknown) (unknown) Medical History (units (unknown) date) (Reviewed 08/01/22 unknown) @ 06:02 by Reinaldo Arthur DO) (unknown) (no (unknown) (unknown) Menometrorrhagia (units (unknown) date) unknown) (unknown) (no (unknown) (unknown) Yates # (Auto) 400 (units (unknown) date) unknown) (unknown) (no (unknown) (unknown) Yates # (Auto) (units ( unknown) date) unknown) (unknown) (no (unknown) (unknown) Yates % (Auto) 7.7 (units (unknown) date) unknown) (unknown) (no (unknown) (unknown) Yates % (Auto) (units ( unknown) date) unknown) (unknown) (no (unknown) (unknown) Mother Diabetes (units (unknown) date) mellitus unknown) (unknown) (no (unknown) (unknown) NECK: trachea (units ( unknown) date) midline, no JVD unknown) (unknown) (no (unknown) (unknown) NEURO: no focal (units (unknown) date) deficits unknown) (unknown) (no (unknown) (unknown) Tonia Schneider MD (units (unknown) date) unknown) (unknown) (no (unknown) (unknown) Narrative (units (unkn own) date) unknown) (unknown) (no (unknown) (unknown) Narrative: (units (unk nown) date) unknown) (unknown) (no (unknown) (unknown) Neut # (Auto) 3100 (units (unknown) date) unknown) (unknown) (no (unknown) (unknown) Neut # (Auto) (units ( unknown) date) unknown) (unknown) (no (unknown) (unknown) Neut % (Auto) 63.0 (units (unknown) date) unknown) (unknown) (no (unknown) (unknown) Neut % (Auto) (units ( unknown) date) unknown) (unknown) (no (unknown) (unknown) New (units (unkno wn) date) unknown) (unknown) (no (unknown) (unknown) Obesity (units (unkno wn) date) unknown) (unknown) (no (unknown) (unknown) Objective (units (unkn own) date) unknown) (unknown) (no (unknown) (unknown) Overweight (units (unk nown) date) unknown) (unknown) (no (unknown) (unknown) Oxygen Delivery (units (unknown) date) Method Room Air unknown) (unknown) (no (unknown) (unknown) Oxygen Delivery (units (unknown) date) Method unknown) (unknown) (no (unknown) (unknown) Oxygen Flow Rate 0 (units (unknown) date) unknown) (unknown) (no (unknown) (unknown) PFSH (units (unkno wn) date) unknown) (unknown) (no (unknown) (unknown) PULM: clear (units (un known) date) bilaterally unknown) (unknown) (no (unknown) (unknown) Patient (units (unkno wn) date) Disposition: Home unknown) (unknown) (no (unknown) (unknown) Patient is (units (unk nown) date) encephalopathic and unknown) unable to provide history. She was previously (unknown) (no (unknown) (unknown) Patient: (units (unkno wn) date) Sarah Connors R unknown) MR#: M (unknown) (no (unknown) (unknown) Plt Count 155 (units ( unknown) date) unknown) (unknown) (no (unknown) (unknown) Plt Count (units (unkn own) date) unknown) (unknown) (no (unknown) (unknown) Potassium 3.8 3.4 (units (unknown) date) unknown) (unknown) (no (unknown) (unknown) Potassium (units (unkn own) date) unknown) (unknown) (no (unknown) (unknown) Prescriptions: (units (unknown) date) unknown) (unknown) (no (unknown) (unknown) Primary Care (units (u nknown) date) Provider: unknown) Tonia Schneider (unknown) (no (unknown) (unknown) Primary care (units (u nknown) date) physician: unknown) (unknown) (no (unknown) (unknown) Provider Discharge (units (unknown) date) Comment: You were unknown) admitted for severe alcohol withdrawals. (unknown) (no (unknown) (unknown) Provider (units (unkno wn) date) unknown) (unknown) (no (unknown) (unknown) Provider: (units (unkn own) date) Jabari Sena unknown) D.O. (unknown) (no (unknown) (unknown) Pulse Oximetry 93 (units (unknown) date) unknown) (unknown) (no (unknown) (unknown) Pulse Oximetry 95 (units (unknown) date) 98 100 unknown) (unknown) (no (unknown) (unknown) Pulse Oximetry 98 (units (unknown) date) 98 unknown) (unknown) (no (unknown) (unknown) Pulse Oximetry 98 (units (unknown) date) unknown) (unknown) (no (unknown) (unknown) Pulse Oximetry 99 (units (unknown) date) 99 unknown) (unknown) (no (unknown) (unknown) Pulse Rate 45 L 64 (units (unknown) date) unknown) (unknown) (no (unknown) (unknown) Pulse Rate 48 L (units (unknown) date) unknown) (unknown) (no (unknown) (unknown) Pulse Rate 50 L 48 (units (unknown) date) L unknown) (unknown) (no (unknown) (unknown) Pulse Rate 53 L 66 (units (unknown) date) 55 L unknown) (unknown) (no (unknown) (unknown) Pulse Rate 62 (units ( unknown) date) unknown) (unknown) (no (unknown) (unknown) RBC 3.71 L (units (unk nown) date) unknown) (unknown) (no (unknown) (unknown) RBC Morphology Not (units (unknown) date) Reportable unknown) (unknown) (no (unknown) (unknown) RBC Morphology (units (unknown) date) unknown) (unknown) (no (unknown) (unknown) RBC (units (unkno wn) date) unknown) (unknown) (no (unknown) (unknown) RDW 20.3 H (units (unk nown) date) unknown) (unknown) (no (unknown) (unknown) RDW (units (unkno wn) date) unknown) (unknown) (no (unknown) (unknown) Reason For Exam: (units (unknown) date) malnutrition unknown) (unknown) (no (unknown) (unknown) Reason for (units (unk nown) date) consultation: 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) 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 (unknown) (no (unknown) (unknown) Respiratory Rate (units (unknown) date) 15 18 unknown) (unknown) (no (unknown) (unknown) Respiratory Rate (units (unknown) date) 15 21 18 unknown) (unknown) (no (unknown) (unknown) Respiratory Rate (units (unknown) date) 15 unknown) (unknown) (no (unknown) (unknown) Respiratory Rate (units (unknown) date) 17 16 unknown) (unknown) (no (unknown) (unknown) Respiratory Rate (units (unknown) date) 18 unknown) (unknown) (no (unknown) (unknown) Rx Instructions: (units (unknown) date) unknown) (unknown) (no (unknown) (unknown) S/P myringotomy (units (unknown) date) with insertion of unknown) tube (unknown) (no (unknown) (unknown) (spontaneous (units (unknown) date) vaginal delivery) unknown) (-09/05/18) (unknown) (no (unknown) (unknown) See Rx (units (unkno wn) date) Instructions .ROUTE unknown) .COMPLEX Qty: 30 0RF (unknown) (no (unknown) (unknown) Signed (units (unkno wn) date) By:<Electronically unknown) signed by Jabari Sena D.O.> (unknown) (no (unknown) (unknown) Smoker (units (unkno wn) date) unknown) (unknown) (no (unknown) (unknown) Smoking Status: (units (unknown) date) Former smoker unknown) (unknown) (no (unknown) (unknown) Social History (units (unknown) date) (Reviewed 08/01/22 unknown) @ 06:02 by Reinaldo Arthur DO) (unknown) (no (unknown) (unknown) Sodium 134 L (units (u nknown) date) unknown) (unknown) (no (unknown) (unknown) Sodium (units (unkno wn) date) unknown) (unknown) (no (unknown) (unknown) Stand Alone Forms: (units (unknown) date) Patient Portal/API, unknown) Stroke Signs + Symptoms (unknown) (no (unknown) (unknown) Sarah low risk (units (unknown) date) is a 31-year-old unknown) female with past medical history of (unknown) (no (unknown) (unknown) Summary (units (unkno wn) date) unknown) (unknown) (no (unknown) (unknown) Surgical History (units (unknown) date) (Reviewed 08/01/22 unknown) @ 06:02 by Reinaldo Arthur DO) (unknown) (no (unknown) (unknown) TCA's. EtOH (units (un known) date) negative. unknown) (unknown) (no (unknown) (unknown) The patient is at (units (unknown) date) much higher risk unknown) for medical and surgical complications (unknown) (no (unknown) (unknown) This improved with (units (unknown) date) high doses of unknown) medications. I'm sending you on a librium taper (unknown) (no (unknown) (unknown) Time Patient Seen: (units (unknown) date) 14:28 unknown) (unknown) (no (unknown) (unknown) Time Spent with (units (unknown) date) Patient unknown) (unknown) (no (unknown) (unknown) Time spent: (units (un known) date) Greater than 30 unknown) minutes (unknown) (no (unknown) (unknown) Visit (units (unkno wn) date) Report/Discharge unknown) Packet (unknown) (no (unknown) (unknown) Vital Signs (units (un known) date) unknown) (unknown) (no (unknown) (unknown) WBC 4.9 (units (unkno wn) date) unknown) (unknown) (no (unknown) (unknown) WBC (units (unkno wn) date) unknown) (unknown) (no (unknown) (unknown) [Embedded Image (units (unknown) date) Not Available] unknown) (unknown) (no (unknown) (unknown) abuse. She was (units (unknown) date) also seen in our ED unknown) yesterday for withdrawals and sent home, but (unknown) (no (unknown) (unknown) admitted for DT (units (unknown) date) withdrawals for 2 unknown) days earlier this month and was in the ICU on (unknown) (no (unknown) (unknown) admitted for (units (u nknown) date) substance unknown) withdrawal with hallucinations. (unknown) (no (unknown) (unknown) alcohol intake: (units (unknown) date) current unknown) (unknown) (no (unknown) (unknown) ativan given in ED (units (unknown) date) without good unknown) effect, so precedex started. Patient's labs and (unknown) (no (unknown) (unknown) ativan. She (units (unk nown) date) improved after 2 unknown) days on 60mg IV pheno and precedex and able to wean (unknown) (no (unknown) (unknown) because of his (units (unknown) date) malnutrition.? This unknown) increases the difficulty and complexity of (unknown) (no (unknown) (unknown) breathing. I've (units (unknown) date) also sent a month unknown) supply of Antabuse. (unknown) (no (unknown) (unknown) chlordiazepoxide (units (unknown) date) HCl 25 mg capsule unknown) (unknown) (no (unknown) (unknown) current (units (unkno wn) date) occupational unknown) exposures/hazards: Yes (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 with Pandemic ) (unknown) (no (unknown) (unknown) depression, (units (un known) date) alcohol abuse and unknown) GERD who presents in acute alcohol withdrawals. (unknown) (no (unknown) (unknown) disulfiram 250 mg (units (unknown) date) tablet unknown) (unknown) (no (unknown) (unknown) education level: (units (unknown) date) college unknown) (unknown) (no (unknown) (unknown) renee/zoroastrianism: (units (unknown) date) Buddhist unknown) (unknown) (no (unknown) (unknown) fluoxetine 10 mg (units (unknown) date) capsule unknown) (unknown) (no (unknown) (unknown) household members: (units (unknown) date) significant other unknown) (unknown) (no (unknown) (unknown) hydroxyzine HCl 50 (units (unknown) date) mg tablet unknown) (unknown) (no (unknown) (unknown) librium taper and (units (unknown) date) antabuse per her unknown) request. (unknown) (no (unknown) (unknown) marital status: (units (unknown) date) unknown) (unknown) (no (unknown) (unknown) medical and (units (un known) date) surgical unknown) interventions and increases the chances of poor outcomes (unknown) (no (unknown) (unknown) multivitamin with (units (unknown) date) folic acid unknown) [Tab-A-Kael] 400 mcg Tablet (unknown) (no (unknown) (unknown) number of (units (unkn own) date) children: 1 unknown) (unknown) (no (unknown) (unknown) occupational (units (u nknown) date) status: employed unknown) (unknown) (no (unknown) (unknown) off the precedex. (units (unknown) date) DCR evaluated and unknown) cleared patient for home. She was sent on a (unknown) (no (unknown) (unknown) once daily for 2 (units (unknown) date) days then stop unknown) (unknown) (no (unknown) (unknown) pantoprazole 40 mg (units (unknown) date) Tablet,Delayed unknown) Release (Dr/Ec) (unknown) (no (unknown) (unknown) past/present (units (u nknown) date) alcohol abuse of unknown) 750 cc vodka/day, 20% wt loss in 1 yr, and (unknown) (no (unknown) (unknown) precedex drip. (units ( unknown) date) Discharged home unknown) after she refused inpatient rehab for her alcohol (unknown) (no (unknown) (unknown) precedex drip. (units (unknown) date) unknown) (unknown) (no (unknown) (unknown) quetiapine 300 mg (units (unknown) date) tablet unknown) (unknown) (no (unknown) (unknown) second hand (units (un known) date) exposure: No unknown) (growing up as a child - not currently) (unknown) (no (unknown) (unknown) special renee (units ( unknown) date) needs: No unknown) (unknown) (no (unknown) (unknown) substance use (units ( unknown) date) type: does not use unknown) (unknown) (no (unknown) (unknown) such as morbidity (units (unknown) date) and mortality. unknown) (unknown) (no (unknown) (unknown) then returned (units ( unknown) date) today with unknown) hallucinations and severe withdrawals. Phenobarb and (unknown) (no (unknown) (unknown) thiamine (units (unkno wn) date) mononitrate (vit unknown) B1) 100 mg Tablet (unknown) (no (unknown) (unknown) to finish at home, (units (unknown) date) but DO NOT drink unknown) alcohol while taking it or you could stop (unknown) (no (unknown) (unknown) vitals are stable. (units (unknown) date) On my exam in CCU unknown) patient is sleeping and calm on max (unknown) (no (unknown) (unknown) when able to take (units (unknown) date) oral meds unknown) (unknown) (no (unknown) (unknown) withdrawal, (units (un known) date) resolved unknown) (unknown) (no (unknown) (unknown) withdrawals (units (unk nown) date) symptoms would like unknown) be out of window. UDS positive benzos, barbs and Result panel 2450 (unknown) (no (unknown) (unknown) (no value) (units (unk nown) date) unknown) (unknown) (no (unknown) (unknown) .COMPLEX #30 caps (units (unknown) date) unknown) (unknown) (no (unknown) (unknown) [id number] (units (unkn own) date) unknown) (unknown) (no (unknown) (unknown) 08/08/22 20:30 (units (unknown) date) unknown) (unknown) (no (unknown) (unknown) 08/08/22 20:31 (units (unknown) date) unknown) (unknown) (no (unknown) (unknown) 08/08/22 (units (unkno wn) date) unknown) (unknown) (no (unknown) (unknown) 1 tab PO DAILY (units (unknown) date) Qty: 30 0RF unknown) (unknown) (no (unknown) (unknown) 10 mg PO DAILY (units (unknown) date) unknown) (unknown) (no (unknown) (unknown) 100 mg PO DAILY (units (unknown) date) Qty: 30 0RF unknown) (unknown) (no (unknown) (unknown) 20:13 (units (unkno wn) date) unknown) (unknown) (no (unknown) (unknown) 25 mg orally 3 (units (unknown) date) times daily for 2 unknown) days, then 2 times daily for 2 days then (unknown) (no (unknown) (unknown) 250 mg PO DAILY (units (unknown) date) Qty: 30 0RF unknown) (unknown) (no (unknown) (unknown) 300 mg PO DAILY (units (unknown) date) unknown) (unknown) (no (unknown) (unknown) 40 mg PO 0700 Qty: (units (unknown) date) 30 0RF unknown) (unknown) (no (unknown) (unknown) 50 mg PO DAILY (units (unknown) date) unknown) (unknown) (no (unknown) (unknown) Age/Sex: 31 / F (units (unknown) date) unknown) (unknown) (no (unknown) (unknown) Alcohol withdrawal (units (unknown) date) delirium, acute, unknown) hyperactive (unknown) (no (unknown) (unknown) Alcoholism (units (unk nown) date) unknown) (unknown) (no (unknown) (unknown) Allergies (units (unkn own) date) unknown) (unknown) (no (unknown) (unknown) Allergy/AdvReac (units (unknown) date) Type Severity unknown) Reaction Status Date / Time (unknown) (no (unknown) (unknown) Anemia (-2018) (units (unknown) date) unknown) (unknown) (no (unknown) (unknown) COVID19 -Nasal (units (unknown) date) RAPID Stat unknown) (unknown) (no (unknown) (unknown) Chief complaint: (units (unknown) date) Toxicology Problem unknown) (unknown) (no (unknown) (unknown) Complete Blood (units (unknown) date) Count AUTO DIFF unknown) Stat (unknown) (no (unknown) (unknown) Comprehensive (units ( unknown) date) Metabolic Panel unknown) Stat (unknown) (no (unknown) (unknown) Course (units (unkno wn) date) unknown) (unknown) (no (unknown) (unknown) : 1990 (units (unknown) date) Acct:[id number] unknown) (unknown) (no (unknown) (unknown) Date of Service: (units (unknown) date) 08/08/22 unknown) (unknown) (no (unknown) (unknown) Departure (units (unkn own) date) unknown) (unknown) (no (unknown) (unknown) Discharge Plan (units (unknown) date) unknown) (unknown) (no (unknown) (unknown) Discontinued (units (u nknown) date) Medications unknown) (unknown) (no (unknown) (unknown) ED Orders (units (unkn own) date) unknown) (unknown) (no (unknown) (unknown) ER Physician: (units ( unknown) date) Will Benitez D.O. unknown) (unknown) (no (unknown) (unknown) Emergency Report (units (unknown) date) unknown) (unknown) (no (unknown) (unknown) Ethanol (ETOH) (units (unknown) date) Stat unknown) (unknown) (no (unknown) (unknown) Exam (units (unkno wn) date) unknown) (unknown) (no (unknown) (unknown) Family History (units (unknown) date) (Reviewed 08/01/22 unknown) @ 06:02 by Reinaldo Arthur DO) (unknown) (no (unknown) [...] extraction (-2013) unknown) (unknown) (no (unknown) (unknown) HPI - General (units ( unknown) date) Adult unknown) (unknown) (no (unknown) (unknown) Home Medications (units (unknown) date) unknown) (unknown) (no (unknown) (unknown) Initial Vital (units ( unknown) date) Signs unknown) (unknown) (no (unknown) (unknown) Initial Vital (units ( unknown) date) Signs: unknown) (unknown) (no (unknown) (unknown) Insomnia (units (unkno wn) date) unknown) (unknown) (no (unknown) (unknown) [facility] (units (unknown) date) [address] [place] [address] Street unknown) [place] [address] (unknown) (no (unknown) (unknown) Lipase Stat (units (un known) date) unknown) (unknown) (no (unknown) (unknown) Medical History (units (unknown) date) (Reviewed 08/01/22 unknown) @ 06:02 by Reinaldo Arthur DO) (unknown) (no (unknown) (unknown) Medication (units (unk nown) date) Instructions unknown) Recorded Confirmed (unknown) (no (unknown) (unknown) Medication (units (unk nown) date) Instructions unknown) Recorded (unknown) (no (unknown) (unknown) Menometrorrhagia (units (unknown) date) unknown) (unknown) (no (unknown) (unknown) Mode of arrival: (units (unknown) date) Ambulatory unknown) (unknown) (no (unknown) (unknown) Mother Diabetes (units (unknown) date) mellitus unknown) (unknown) (no (unknown) (unknown) No Action (units (unkn own) date) unknown) (unknown) (no (unknown) (unknown) Obesity (units (unkno wn) date) unknown) (unknown) (no (unknown) (unknown) Ordered: (units (unkno wn) date) unknown) (unknown) (no (unknown) (unknown) Orders (units (unkno wn) date) unknown) (unknown) (no (unknown) (unknown) Overweight (units (unk nown) date) unknown) (unknown) (no (unknown) (unknown) Oxygen Delivery (units (unknown) date) Method Room Air unknown) 08/08/22 20:13 (unknown) (no (unknown) (unknown) Oxygen Delivery (units (unknown) date) Method Room Air unknown) (unknown) (no (unknown) (unknown) Patient History (units (unknown) date) unknown) (unknown) (no (unknown) (unknown) Patient: (units (unkno wn) date) Sarah Connors R unknown) MR#: M (unknown) (no (unknown) (unknown) Test (units (unknown) date) Urine Stat unknown) (unknown) (no (unknown) (unknown) Prescriptions: (units (unknown) date) unknown) (unknown) (no (unknown) (unknown) Previous Rx's (units ( unknown) date) unknown) (unknown) (no (unknown) (unknown) Pulse Oximetry 96 (units (unknown) date) 08/08/22 20:13 unknown) (unknown) (no (unknown) (unknown) Pulse Oximetry 96 (units (unknown) date) unknown) (unknown) (no (unknown) (unknown) Pulse Rate 100 H (units (unknown) date) 08/08/22 20:13 unknown) (unknown) (no (unknown) (unknown) Pulse Rate 100 H (units (unknown) date) unknown) (unknown) (no (unknown) (unknown) Referrals: (units (unk nown) date) unknown) (unknown) (no (unknown) (unknown) Related Data (units (u nknown) date) unknown) (unknown) (no (unknown) (unknown) Respiratory Rate (units (unknown) date) 20 08/08/22 20:13 unknown) (unknown) (no (unknown) (unknown) Respiratory Rate (units (unknown) date) 20 unknown) (unknown) (no (unknown) (unknown) Rx Instructions: (units (unknown) date) unknown) (unknown) (no (unknown) (unknown) S/P myringotomy (units (unknown) date) with insertion of unknown) tube (unknown) (no (unknown) (unknown) (spontaneous (units (unknown) date) vaginal delivery) unknown) (-09/05/18) (unknown) (no (unknown) (unknown) See Rx (units (unkno wn) date) Instructions .ROUTE unknown) .COMPLEX Qty: 30 0RF (unknown) (no (unknown) (unknown) Signed By: (units (unk nown) date) unknown) (unknown) (no (unknown) (unknown) Smoker (units (unkno wn) date) unknown) (unknown) (no (unknown) (unknown) Smoking Status: (units (unknown) date) Former smoker unknown) (unknown) (no (unknown) (unknown) Social History (units (unknown) date) (Reviewed 08/01/22 unknown) @ 06:02 by Reinaldo Arthur DO) (unknown) (no (unknown) (unknown) Source: other (units ( unknown) date) unknown) (unknown) (no (unknown) (unknown) Stated complaint: (units (unknown) date) needs to detox unknown) (unknown) (no (unknown) (unknown) Stop: 08/08/22 (units (unknown) date) 20:30 unknown) (unknown) (no (unknown) (unknown) Substance Use (units ( unknown) date) Type: does not use unknown) (unknown) (no (unknown) (unknown) Surgical History (units (unknown) date) (Reviewed 08/01/22 unknown) @ 06:02 by Reinaldo Arthur DO) (unknown) (no (unknown) (unknown) Temperature 98 F (units (unknown) date) 08/08/22 20:13 unknown) (unknown) (no (unknown) (unknown) Temperature 98 F (units (unknown) date) unknown) (unknown) (no (unknown) (unknown) Thiamine HCl 100 (units (unknown) date) mg/ Sodium unknown) (Chloride) 101 mls @ 404 mls/hr IV NOW ONE (unknown) (no (unknown) (unknown) Time Seen by (units (u nknown) date) Provider: 08/08/22 unknown) 20:27 (unknown) (no (unknown) (unknown) Urinalysis and (units (unknown) date) Microscopic Stat unknown) (unknown) (no (unknown) (unknown) Urine Drug Screen, (units (unknown) date) Rapid Stat unknown) (unknown) (no (unknown) (unknown) Vital Signs - 8 hr (units (unknown) date) unknown) (unknown) (no (unknown) (unknown) Vital Signs (units (un known) date) unknown) (unknown) (no (unknown) (unknown) Vital signs: (units (u nknown) date) unknown) (unknown) (no (unknown) (unknown) [METOCLOPRAMIDE] (units (unknown) date) unknown) (unknown) (no (unknown) (unknown) alcohol intake (units (unknown) date) frequency: 3 or unknown) more drinks per day (unknown) (no (unknown) (unknown) alcohol intake: (units (unknown) date) current unknown) (unknown) (no (unknown) (unknown) chlordiazepoxide (units (unknown) date) HCl 25 mg capsule unknown) See Rx Instructions .Route 08/03/22 (unknown) (no (unknown) (unknown) chlordiazepoxide (units (unknown) date) HCl 25 mg capsule unknown) (unknown) (no (unknown) (unknown) current (units (unkno wn) date) occupational unknown) exposures/hazards: Yes (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 with Pandemic ) (unknown) (no (unknown) (unknown) disulfiram 250 mg (units (unknown) date) tablet 250 mg PO unknown) DAILY #30 tabs 08/03/22 (unknown) (no (unknown) (unknown) disulfiram 250 mg (units (unknown) date) tablet unknown) (unknown) (no (unknown) (unknown) education level: (units (unknown) date) college unknown) (unknown) (no (unknown) (unknown) renee/zoroastrianism: (units (unknown) date) Buddhist unknown) (unknown) (no (unknown) (unknown) fluoxetine 10 mg (units (unknown) date) capsule 10 mg PO unknown) DAILY 07/13/22 08/01/22 (unknown) (no (unknown) (unknown) fluoxetine 10 mg (units (unknown) date) capsule unknown) (unknown) (no (unknown) (unknown) household members: (units (unknown) date) significant other unknown) (unknown) (no (unknown) (unknown) hydrocodone (units (un known) date) [HYDROCODONE] unknown) AdvReac Unknown VOMITING Verified 07/12/22 16:18 (unknown) (no (unknown) (unknown) hydroxyzine HCl 50 (units (unknown) date) mg tablet 50 mg PO unknown) DAILY 07/13/22 08/01/22 (unknown) (no (unknown) (unknown) hydroxyzine HCl 50 (units (unknown) date) mg tablet unknown) (unknown) (no (unknown) (unknown) marital status: (units (unknown) date) unknown) (unknown) (no (unknown) (unknown) mcg tablet (units (unk nown) date) (Tab-A-Kael) unknown) (unknown) (no (unknown) (unknown) metoclopramide (units (unknown) date) Allergy Mild unknown) RASH/HIVES Verified 07/12/22 16:18 (unknown) (no (unknown) (unknown) mg tablet (units (unkn own) date) unknown) (unknown) (no (unknown) (unknown) multivitamin with (units (unknown) date) folic acid 400 1 unknown) tab PO DAILY #30 tabs 07/14/22 (unknown) (no (unknown) (unknown) multivitamin with (units (unknown) date) folic acid unknown) [Tab-A-Kael] 400 mcg Tablet (unknown) (no (unknown) (unknown) number of (units (unkn own) date) children: 1 unknown) (unknown) (no (unknown) (unknown) occupational (units (u nknown) date) status: employed unknown) (unknown) (no (unknown) (unknown) once daily for 2 (units (unknown) date) days then stop unknown) (unknown) (no (unknown) (unknown) pantoprazole 40 mg (units (unknown) date) Tablet,Delayed unknown) Release (Dr/Ec) (unknown) (no (unknown) (unknown) pantoprazole 40 mg (units (unknown) date) tablet,delayed 40 unknown) mg PO 0700 #30 tabs 07/14/22 (unknown) (no (unknown) (unknown) quetiapine 300 mg (units (unknown) date) tablet 300 mg PO unknown) DAILY 07/13/22 08/01/22 (unknown) (no (unknown) (unknown) quetiapine 300 mg (units (unknown) date) tablet unknown) (unknown) (no (unknown) (unknown) release (units (unkno wn) date) unknown) (unknown) (no (unknown) (unknown) second hand (units (un known) date) exposure: No unknown) (growing up as a child - not currently) (unknown) (no (unknown) (unknown) special renee (units ( unknown) date) needs: No unknown) (unknown) (no (unknown) (unknown) substance use (units ( unknown) date) type: does not use unknown) (unknown) (no (unknown) (unknown) thiamine (units (unkno wn) date) mononitrate (vit unknown) B1) 100 100 mg PO DAILY #30 tabs 07/14/22 (unknown) (no (unknown) (unknown) thiamine (units (unkno wn) date) mononitrate (vit unknown) B1) 100 mg Tablet Result panel 2451 (unknown) (no date) (unknown) (unknown) 0 /ul (unkn own) (unknown) (no date) (unknown) (unknown) 0.8 % (unkn own) (unknown) (no date) (unknown) (unknown) 100 /ul (unkn own) (unknown) (no date) (unknown) (unknown) 11.9 g/dl (unkn own) (unknown) (no date) (unknown) (unknown) 19.7 % (unkn own) (unknown) (no date) (unknown) (unknown) 1900 /ul (unkn own) (unknown) (no date) (unknown) (unknown) 2.5 % (unkn own) (unknown) (no date) (unknown) (unknown) 25.7 pg (unkn own) (unknown) (no date) (unknown) (unknown) 2600 /ul (unkn own) (unknown) (no date) (unknown) (unknown) 32.1 % (unkn own) (unknown) (no date) (unknown) (unknown) 36.6 % (unkn own) (unknown) (no date) (unknown) (unknown) 37.0 % (unkn own) (unknown) (no date) (unknown) (unknown) 396 x10 3/ul (unkn own) (unknown) (no date) (unknown) (unknown) 4.61 x10 6/ul (unkn own) (unknown) (no date) (unknown) (unknown) 400 /ul (unkn own) (unknown) (no date) (unknown) (unknown) 5.1 x10 3/ul (unkn own) (unknown) (no date) (unknown) (unknown) 51.5 % (unkn own) (unknown) (no date) (unknown) (unknown) 8.6 % (unkn own) (unknown) (no date) (unknown) (unknown) 80.2 fl (unkn own) Result panel 2452 (unknown) (no date) (unknown) (unknown) > 60 ml/min (unkn own) (unknown) (no date) (unknown) (unknown) > 60 ml/min (unkn own) (unknown) (no date) (unknown) (unknown) 0.4 mg/dl (unkn own) (unknown) (no date) (unknown) (unknown) 0.76 mg/dl (unkn own) (unknown) (no date) (unknown) (unknown) 1.3 (units unknown) (unknown) (unknown) (no date) (unknown) (unknown) 104 mmol/l (unkn own) (unknown) (no date) (unknown) (unknown) 148 mmol/l (unkn own) (unknown) (no date) (unknown) (unknown) 148 mmol/l (unkn own) (unknown) (no date) (unknown) (unknown) 3.3 g/dl (unkn own) (unknown) (no date) (unknown) (unknown) 3.6 mmol/l (unkn own) (unknown) (no date) (unknown) (unknown) 33 mmol/l (unkn own) (unknown) (no date) (unknown) (unknown) 4.4 g/dl (unkn own) (unknown) (no date) (unknown) (unknown) 424 iu/l (unkn own) (unknown) (no date) (unknown) (unknown) 64 iu/l (unkn own) (unknown) (no date) (unknown) (unknown) 7 mg/dl (unkn own) (unknown) (no date) (unknown) (unknown) 7.7 g/dl (unkn own) (unknown) (no date) (unknown) (unknown) 71 u/l (unkn own) (unknown) (no date) (unknown) (unknown) 8.4 mg/dl (unkn own) (unknown) (no date) (unknown) (unknown) 9.2 (units unknown) (unknown) (unknown) (no date) (unknown) (unknown) 92 mg/dl (unkn own) (unknown) (no date) (unknown) (unknown) 92 mg/dl (unkn own) Result panel 2453 (unknown) (no date) (unknown) (unknown) 408 u/l (unkn own) Result panel 2454 (unknown) (no date) (unknown) (unknown) 393 mg/dl (unkn own) (unknown) (no date) (unknown) (unknown) 393 mg/dl (unkn own) (unknown) (no date) (unknown) (unknown) 408 u/l (unkn own) Result panel 2455 (unknown) (no date) (unknown) (unknown) 2.2 mg/dl (unkn own) (unknown) (no date) (unknown) (unknown) 2.2 mg/dl (unkn own) Result panel 2456 (unknown) (no (unknown) (unknown) (no value) (units (unk nown) date) unknown) (unknown) (no (unknown) (unknown) 'Current (units (unkno wn) date) medications' to unknown) include all prescriptions, [id number] products, (unknown) (no (unknown) (unknown) (nutritional) (units ( unknown) date) supplements. unknown) (unknown) (no (unknown) (unknown) (past 8 hours): (units (unknown) date) unknown) (unknown) (no (unknown) (unknown) -SW consult (units (un known) date) unknown) (unknown) (no (unknown) (unknown) -continue PPI (units ( unknown) date) unknown) (unknown) (no (unknown) (unknown) -continue ciwa (units (unknown) date) protocol, with unknown) ativan, start librium 50mg q6, ordered precedex (unknown) (no (unknown) (unknown) -continue prozac (units (unknown) date) unknown) (unknown) (no (unknown) (unknown) -continue to trend (units (unknown) date) unknown) (unknown) (no (unknown) (unknown) -each time she has (units (unknown) date) refused rehab unknown) (unknown) (no (unknown) (unknown) -follow up urine (units (unknown) date) cultures unknown) (unknown) (no (unknown) (unknown) -multiple (units (unkn own) date) admissions and unknown) hospital visits for alcohol withdrawal within the last (unknown) (no (unknown) (unknown) -ordered for high (units (unknown) date) dose thiamine for unknown) prevention/treatmen t of wernicke's (unknown) (no (unknown) (unknown) -per ED she is (units (unknown) date) requesting detox unknown) after drinking heavily after discharge (unknown) (no (unknown) (unknown) -per ED she was (units (unknown) date) hallucinating and unknown) agitated on arrival, received phenobarbital (unknown) (no (unknown) (unknown) -she was just (units ( unknown) date) discharged 5 days unknown) ago, refusing rehab (unknown) (no (unknown) (unknown) -suspect secondary (units (unknown) date) to alcohol unknown) withdrawal and phenobarbital and treat as above (unknown) (no (unknown) (unknown) -unable to discuss (units (unknown) date) with patient on unknown) admission as she is sedated (unknown) (no (unknown) (unknown) .COMPLEX #30 caps (units (unknown) date) unknown) (unknown) (no (unknown) (unknown) [id number] (units (unkn own) date) unknown) (unknown) (no (unknown) (unknown) 08/08/22 08/08/22 (units (unknown) date) 08/08/22 unknown) (unknown) (no (unknown) (unknown) 08/08/22 21:00 (units (unknown) date) unknown) (unknown) (no (unknown) (unknown) 08/08/22 (units (unkno wn) date) unknown) (unknown) (no (unknown) (unknown) 1. Acute alcohol (units (unknown) date) withdrawal with DTs unknown) (unknown) (no (unknown) (unknown) 14 systems (units (unk nown) date) reviewed and unknown) negative aside from what is noted in HPI (unknown) (no (unknown) (unknown) 2. Acute (units (unkno wn) date) encephalopathy unknown) (unknown) (no (unknown) (unknown) 20:13 (units (unkno wn) date) unknown) (unknown) (no (unknown) (unknown) 21:00 21:00 21:00 (units (unknown) date) unknown) (unknown) (no (unknown) (unknown) 3. Depression and (units (unknown) date) anxiety unknown) (unknown) (no (unknown) (unknown) 4. Anemia, chronic (units (unknown) date) unknown) (unknown) (no (unknown) (unknown) 5. GERD (units (unkno wn) date) unknown) (unknown) (no (unknown) (unknown) ABD: soft, (units (unk nown) date) nontender, unknown) nondistended, no organomegaly (unknown) (no (unknown) (unknown) ALT 64 H (units (unkno wn) date) unknown) (unknown) (no (unknown) (unknown) AST 424 H (units (unkn own) date) unknown) (unknown) (no (unknown) (unknown) Age/Sex: 31 / F (units (unknown) date) unknown) (unknown) (no (unknown) (unknown) Albumin 4.4 (units (un known) date) unknown) (unknown) (no (unknown) (unknown) Albumin/Globulin (units (unknown) date) Ratio 1.3 unknown) (unknown) (no (unknown) (unknown) Alcohol withdrawal (units (unknown) date) delirium, acute, unknown) hyperactive (unknown) (no (unknown) (unknown) Alcoholism (units (unk nown) date) unknown) (unknown) (no (unknown) (unknown) Alkaline (units (unkno wn) date) Phosphatase 71 unknown) (unknown) (no (unknown) (unknown) Allergies (units (unkn own) date) unknown) (unknown) (no (unknown) (unknown) Allergy/AdvReac (units (unknown) date) Type Severity unknown) Reaction Status Date / Time (unknown) (no (unknown) (unknown) Anemia (-2018) (units (unknown) date) unknown) (unknown) (no (unknown) (unknown) Assessment + Plan (units (unknown) date) narrative: unknown) (unknown) (no (unknown) (unknown) Assessment + Plan (units (unknown) date) unknown) (unknown) (no (unknown) (unknown) BUN 7 (units (unkno wn) date) unknown) (unknown) (no (unknown) (unknown) BUN/Creatinine (units (unknown) date) Ratio 9.2 unknown) (unknown) (no (unknown) (unknown) Baso # (Auto) 100 (units (unknown) date) unknown) (unknown) (no (unknown) (unknown) Baso % (Auto) 2.5 (units (unknown) date) H unknown) (unknown) (no (unknown) (unknown) CODE: Full (units (unk nown) date) unknown) (unknown) (no (unknown) (unknown) CV: regular rate (units (unknown) date) and rhythm, no unknown) murmurs (unknown) (no (unknown) (unknown) Calcium 8.4 (units (un known) date) unknown) (unknown) (no (unknown) (unknown) Carbon Dioxide 33 (units (unknown) date) H unknown) (unknown) (no (unknown) (unknown) Chief complaint: (units (unknown) date) needs to detox unknown) (unknown) (no (unknown) (unknown) Chloride 104 (units (u nknown) date) unknown) (unknown) (no (unknown) (unknown) Creatinine 0.76 (units (unknown) date) unknown) (unknown) (no (unknown) (unknown) : 1990 (units (unknown) date) Acct:[id number] unknown) (unknown) (no (unknown) (unknown) Date of Service: (units (unknown) date) 08/08/22 unknown) (unknown) (no (unknown) (unknown) EXT: warm and well (units (unknown) date) perfused with no unknown) edema (unknown) (no (unknown) (unknown) Eos # (Auto) 0 (units (unknown) date) unknown) (unknown) (no (unknown) (unknown) Eos % (Auto) 0.8 L (units (unknown) date) unknown) (unknown) (no (unknown) (unknown) Estimated GFR > 60 (units (unknown) date) unknown) (unknown) (no (unknown) (unknown) Ethyl Alcohol 393 (units (unknown) date) H unknown) (unknown) (no (unknown) (unknown) Exam Narrative: (units (unknown) date) unknown) (unknown) (no (unknown) (unknown) Exam (units (unkno wn) date) unknown) (unknown) (no (unknown) (unknown) Family History (units (unknown) date) (Reviewed 08/01/22 unknown) @ 06:02 by Reinaldo Arthur DO) (unknown) (no (unknown) (unknown) Family/Other (units (u nknown) date) Alcoholism unknown) (unknown) (no (unknown) (unknown) Family/Other (units (u nknown) date) Diabetes mellitus unknown) (unknown) (no (unknown) (unknown) Father Alcoholism (units (unknown) date) unknown) (unknown) (no (unknown) (unknown) GEN: sedated, (units ( unknown) date) sleeping unknown) (unknown) (no (unknown) (unknown) Globulin 3.3 (units (u nknown) date) unknown) (unknown) (no (unknown) (unknown) Glucose 92 (units (unk nown) date) unknown) (unknown) (no (unknown) (unknown) Grandfather [...] extraction () unknown) (unknown) (no (unknown) (unknown) HEENT: moist (units (u nknown) date) mucous membranes, unknown) PERRL (unknown) (no (unknown) (unknown) Hct 37.0 (units (unkno wn) date) unknown) (unknown) (no (unknown) (unknown) Hgb 11.9 L (units (unk nown) date) unknown) (unknown) (no (unknown) (unknown) History + Physical (units (unknown) date) Report unknown) (unknown) (no (unknown) (unknown) History of Present (units (unknown) date) Illness unknown) (unknown) (no (unknown) (unknown) Home Medications (units (unknown) date) and Allergies unknown) (unknown) (no (unknown) (unknown) Home Medications (units (unknown) date) unknown) (unknown) (no (unknown) (unknown) I have utilized (units (unknown) date) all available unknown) resources to obtain, update, or review the (unknown) (no (unknown) (unknown) Insomnia (units (unkno wn) date) unknown) (unknown) (no (unknown) (unknown) [facility] (units (unknown) date) [address] unknown) [place] [address] (unknown) (no (unknown) (unknown) Laboratory Results (units (unknown) date) - last 24 hr unknown) (unknown) (no (unknown) (unknown) Labs (units (unkno wn) date) unknown) (unknown) (no (unknown) (unknown) Labs: (units (unkno wn) date) unknown) (unknown) (no (unknown) (unknown) Lipase 408 H (units (u nknown) date) unknown) (unknown) (no (unknown) (unknown) Lymph # (Auto) (units (unknown) date) 2600 unknown) (unknown) (no (unknown) (unknown) Lymph % (Auto) (units (unknown) date) 51.5 H unknown) (unknown) (no (unknown) (unknown) MCH 25.7 L (units (unk nown) date) unknown) (unknown) (no (unknown) (unknown) MCHC 32.1 (units (unkn own) date) unknown) (unknown) (no (unknown) (unknown) MCV 80.2 (units (unkno wn) date) unknown) (unknown) (no (unknown) (unknown) MIPS - Meds (units (un known) date) unknown) (unknown) (no (unknown) (unknown) Medical History (units (unknown) date) (Reviewed 08/01/22 unknown) @ 06:02 by Reinaldo Arthur DO) (unknown) (no (unknown) (unknown) Medication (units (unk nown) date) Instructions unknown) Recorded Confirmed Type (unknown) (no (unknown) (unknown) Meds (units (unkno wn) date) unknown) (unknown) (no (unknown) (unknown) Menometrorrhagia (units (unknown) date) unknown) (unknown) (no (unknown) (unknown) Yates # (Auto) 400 (units (unknown) date) unknown) (unknown) (no (unknown) (unknown) Yates % (Auto) 8.6 (units (unknown) date) unknown) (unknown) (no (unknown) (unknown) Mother Diabetes (units (unknown) date) mellitus unknown) (unknown) (no (unknown) (unknown) NECK: trachea (units ( unknown) date) midline, no JVD unknown) (unknown) (no (unknown) (unknown) NEURO: sleepy, (units (unknown) date) sedated, moving all unknown) extremities, no focal deficits noted (unknown) (no (unknown) (unknown) Narrative (units (unkn own) date) unknown) (unknown) (no (unknown) (unknown) Narrative: (units (unk nown) date) unknown) (unknown) (no (unknown) (unknown) Neut # (Auto) 1900 (units (unknown) date) unknown) (unknown) (no (unknown) (unknown) Neut % (Auto) 36.6 (units (unknown) date) L unknown) (unknown) (no (unknown) (unknown) Obesity (units (unkno wn) date) unknown) (unknown) (no (unknown) (unknown) Objective (units (unkn own) date) unknown) (unknown) (no (unknown) (unknown) Overweight (units (unk nown) date) unknown) (unknown) (no (unknown) (unknown) Oxygen Delivery (units (unknown) date) Method Room Air unknown) (unknown) (no (unknown) (unknown) PFSH (units (unkno wn) date) unknown) (unknown) (no (unknown) (unknown) PULM: clear (units (un known) date) bilaterally, no unknown) wheezes, rhonchi, rales (unknown) (no (unknown) (unknown) Patient: (units (unkno wn) date) Sarah Connors R unknown) MR#: M (unknown) (no (unknown) (unknown) Plt Count 396 (units ( unknown) date) unknown) (unknown) (no (unknown) (unknown) Potassium 3.6 (units ( unknown) date) unknown) (unknown) (no (unknown) (unknown) Provider: (units (unkn own) date) Raymond Aguilera MD unknown) (unknown) (no (unknown) (unknown) Proxy: Rober (units (unknown) date) Dory, spouse unknown) (unknown) (no (unknown) (unknown) Pulse Oximetry 96 (units (unknown) date) unknown) (unknown) (no (unknown) (unknown) Pulse Rate 100 H (units (unknown) date) unknown) (unknown) (no (unknown) (unknown) Quality (units (unkno wn) date) unknown) (unknown) (no (unknown) (unknown) RBC 4.61 (units (unkno wn) date) unknown) (unknown) (no (unknown) (unknown) RDW 19.7 H (units (unk nown) date) unknown) (unknown) (no (unknown) (unknown) Respiratory Rate (units (unknown) date) 20 unknown) (unknown) (no (unknown) (unknown) Review of [...] (unknown) Social History (units (unknown) date) (Reviewed 08/01/22 unknown) @ 06:02 by Reinaldo Arthur DO) (unknown) (no (unknown) (unknown) Sodium 148 H D (units (unknown) date) unknown) (unknown) (no (unknown) (unknown) Surgical History (units (unknown) date) (Reviewed 08/01/22 unknown) @ 06:02 by Reinaldo Arthur DO) (unknown) (no (unknown) (unknown) Temperature 98 F (units (unknown) date) unknown) (unknown) (no (unknown) (unknown) Total Bilirubin (units (unknown) date) 0.4 unknown) (unknown) (no (unknown) (unknown) Total Protein 7.7 (units (unknown) date) unknown) (unknown) (no (unknown) (unknown) Vital Signs (units (un known) date) unknown) (unknown) (no (unknown) (unknown) WBC 5.1 (units (unkno wn) date) unknown) (unknown) (no (unknown) (unknown) [Embedded Image (units (unknown) date) Not Available] unknown) (unknown) (no (unknown) (unknown) [METOCLOPRAMIDE] (units (unknown) date) unknown) (unknown) (no (unknown) (unknown) alcohol intake: (units (unknown) date) current unknown) (unknown) (no (unknown) (unknown) and place in ICU (units (unknown) date) unknown) (unknown) (no (unknown) (unknown) chlordiazepoxide (units (unknown) date) HCl 25 mg capsule unknown) See Rx Instructions .Route 08/03/22 Rx (unknown) (no (unknown) (unknown) current (units (unkno wn) date) occupational unknown) exposures/hazards: Yes (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 with Pandemic ) (unknown) (no (unknown) (unknown) disulfiram 250 mg (units (unknown) date) tablet 250 mg PO unknown) DAILY #30 tabs 08/03/22 Rx (unknown) (no (unknown) (unknown) education level: (units (unknown) date) college unknown) (unknown) (no (unknown) (unknown) renee/zoroastrianism: (units (unknown) date) Buddhist unknown) (unknown) (no (unknown) (unknown) fluoxetine 10 mg (units (unknown) date) capsule 10 mg PO unknown) DAILY 07/13/22 08/01/22 History (unknown) (no (unknown) (unknown) herbals, (units (unkno wn) date) cannabis/cannabidio unknown) l products, and vitamin/mineral/ tary (unknown) (no (unknown) (unknown) household members: (units (unknown) date) significant other unknown) (unknown) (no (unknown) (unknown) hydrocodone (units (un known) date) [HYDROCODONE] unknown) AdvReac Unknown VOMITING Verified 07/12/22 16:18 (unknown) (no (unknown) (unknown) hydroxyzine HCl 50 (units (unknown) date) mg tablet 50 mg PO unknown) DAILY 07/13/22 08/01/22 History (unknown) (no (unknown) (unknown) marital status: (units (unknown) date) unknown) (unknown) (no (unknown) (unknown) mcg tablet (units (unk nown) date) (Tab-A-Kael) unknown) (unknown) (no (unknown) (unknown) metoclopramide (units (unknown) date) Allergy Mild unknown) RASH/HIVES Verified 07/12/22 16:18 (unknown) (no (unknown) (unknown) mg tablet (units (unkn own) date) unknown) (unknown) (no (unknown) (unknown) month (units (unkno wn) date) unknown) (unknown) (no (unknown) (unknown) multivitamin with (units (unknown) date) folic acid 400 1 unknown) tab PO DAILY #30 tabs 07/14/22 08/01/22 Rx (unknown) (no (unknown) (unknown) number of (units (unkn own) date) children: 1 unknown) (unknown) (no (unknown) (unknown) occupational (units (u nknown) date) status: employed unknown) (unknown) (no (unknown) (unknown) pantoprazole 40 mg (units (unknown) date) tablet,delayed 40 unknown) mg PO 0700 #30 tabs 07/14/22 08/01/22 Rx (unknown) (no (unknown) (unknown) patient?s current (units (unknown) date) medications. [If unknown) Yes, STOP here]: Yes (unknown) (no (unknown) (unknown) quetiapine 300 mg (units (unknown) date) tablet 300 mg PO unknown) DAILY 07/13/22 08/01/22 History (unknown) (no (unknown) (unknown) release (units (unkno wn) date) unknown) (unknown) (no (unknown) (unknown) second hand (units (un known) date) exposure: No unknown) (growing up as a child - not currently) (unknown) (no (unknown) (unknown) special renee (units ( unknown) date) needs: No unknown) (unknown) (no (unknown) (unknown) substance use (units ( unknown) date) type: does not use unknown) (unknown) (no (unknown) (unknown) thiamine (units (unkno wn) date) mononitrate (vit unknown) B1) 100 100 mg PO DAILY #30 tabs 07/14/22 08/01/22 Rx Result panel [id number] (unknown) (no (unknown) (unknown) (no value) (units (unk nown) date) unknown) (unknown) (no (unknown) (unknown) 'Current (units (unkno wn) date) medications' to unknown) include all prescriptions, nmdg-kdg-mbxsohi products, (unknown) (no (unknown) (unknown) (nutritional) (units ( unknown) date) supplements. unknown) (unknown) (no (unknown) (unknown) (past 8 hours): (units (unknown) date) unknown) (unknown) (no (unknown) (unknown) -SW consult (units (un known) date) unknown) (unknown) (no (unknown) (unknown) -continue PPI (units ( unknown) date) unknown) (unknown) (no (unknown) (unknown) -continue ciwa (units (unknown) date) protocol, with unknown) ativan, start librium 50mg q6, ordered precedex (unknown) (no (unknown) (unknown) -continue prozac (units (unknown) date) unknown) (unknown) (no (unknown) (unknown) -continue to trend (units (unknown) date) unknown) (unknown) (no (unknown) (unknown) -each time she has (units (unknown) date) refused rehab unknown) (unknown) (no (unknown) (unknown) -follow up urine (units (unknown) date) cultures unknown) (unknown) (no (unknown) (unknown) -likely secondary (units (unknown) date) to inadequate PO unknown) intake due to alcoholism (unknown) (no (unknown) (unknown) -multiple (units (unkn own) date) admissions and unknown) hospital visits for alcohol withdrawal within the last (unknown) (no (unknown) (unknown) -ordered for high (units (unknown) date) dose thiamine for unknown) prevention/treatmen t of wernicke's (unknown) (no (unknown) (unknown) -per ED she is (units (unknown) date) requesting detox unknown) after drinking heavily after discharge (unknown) (no (unknown) (unknown) -per ED she was (units (unknown) date) hallucinating and unknown) agitated on arrival, received phenobarbital (unknown) (no (unknown) (unknown) -she was just (units ( unknown) date) discharged 5 days unknown) ago, refusing rehab (unknown) (no (unknown) (unknown) -suspect secondary (units (unknown) date) to alcohol unknown) withdrawal and phenobarbital and treat as above (unknown) (no (unknown) (unknown) -trend daily (units (u nknown) date) unknown) (unknown) (no (unknown) (unknown) -unable to discuss (units (unknown) date) with patient on unknown) admission as she is sedated (unknown) (no (unknown) (unknown) .COMPLEX #30 caps (units (unknown) date) unknown) (unknown) (no (unknown) (unknown) [id number] (units (unkn own) date) unknown) (unknown) (no (unknown) (unknown) 08/08/22 08/08/22 (units (unknown) date) 08/08/22 unknown) (unknown) (no (unknown) (unknown) 08/08/22 21:00 (units (unknown) date) unknown) (unknown) (no (unknown) (unknown) 08/08/22 (units (unkno wn) date) unknown) (unknown) (no (unknown) (unknown) 1. Acute alcohol (units (unknown) date) withdrawal with DTs unknown) (unknown) (no (unknown) (unknown) 14 systems (units (unk nown) date) reviewed and unknown) negative aside from what is noted in HPI (unknown) (no (unknown) (unknown) 2. Acute (units (unkno wn) date) encephalopathy unknown) (unknown) (no (unknown) (unknown) 20:13 (units (unkno wn) date) unknown) (unknown) (no (unknown) (unknown) 21:00 21:00 21:00 (units (unknown) date) unknown) (unknown) (no (unknown) (unknown) 3. Hypernatremia (units (unknown) date) unknown) (unknown) (no (unknown) (unknown) 4. Depression and (units (unknown) date) anxiety unknown) (unknown) (no (unknown) (unknown) 5. Anemia, chronic (units (unknown) date) unknown) (unknown) (no (unknown) (unknown) 6. GERD (units (unkno wn) date) unknown) (unknown) (no (unknown) (unknown) ABD: soft, (units (unk nown) date) nontender, unknown) nondistended, no organomegaly (unknown) (no (unknown) (unknown) ALT 64 H (units (unkno wn) date) unknown) (unknown) (no (unknown) (unknown) AST 424 H (units (unkn own) date) unknown) (unknown) (no (unknown) (unknown) Age/Sex: 31 / F (units (unknown) date) unknown) (unknown) (no (unknown) (unknown) Albumin 4.4 (units (un known) date) unknown) (unknown) (no (unknown) (unknown) Albumin/Globulin (units (unknown) date) Ratio 1.3 unknown) (unknown) (no (unknown) (unknown) Alcohol withdrawal (units (unknown) date) delirium, acute, unknown) hyperactive (unknown) (no (unknown) (unknown) Alcoholism (units (unk nown) date) unknown) (unknown) (no (unknown) (unknown) Alkaline (units (unkno wn) date) Phosphatase 71 unknown) (unknown) (no (unknown) (unknown) Allergies (units (unkn own) date) unknown) (unknown) (no (unknown) (unknown) Allergy/AdvReac (units (unknown) date) Type Severity unknown) Reaction Status Date / Time (unknown) (no (unknown) (unknown) Anemia (-2018) (units (unknown) date) unknown) (unknown) (no (unknown) (unknown) Assessment + Plan (units (unknown) date) narrative: unknown) (unknown) (no (unknown) (unknown) Assessment + Plan (units (unknown) date) unknown) (unknown) (no (unknown) (unknown) BUN 7 (units (unkno wn) date) unknown) (unknown) (no (unknown) (unknown) BUN/Creatinine (units (unknown) date) Ratio 9.2 unknown) (unknown) (no (unknown) (unknown) Baso # (Auto) 100 (units (unknown) date) unknown) (unknown) (no (unknown) (unknown) Baso % (Auto) 2.5 (units (unknown) date) H unknown) (unknown) (no (unknown) (unknown) CODE: Full (units (unk nown) date) unknown) (unknown) (no (unknown) (unknown) CV: regular rate (units (unknown) date) and rhythm, no unknown) murmurs (unknown) (no (unknown) (unknown) Calcium 8.4 (units (un known) date) unknown) (unknown) (no (unknown) (unknown) Carbon Dioxide 33 (units (unknown) date) H unknown) (unknown) (no (unknown) (unknown) Chief complaint: (units (unknown) date) needs to detox unknown) (unknown) (no (unknown) (unknown) Chloride 104 (units (u nknown) date) unknown) (unknown) (no (unknown) (unknown) Creatinine 0.76 (units (unknown) date) unknown) (unknown) (no (unknown) (unknown) : 1990 (units (unknown) date) Acct:[id number] unknown) (unknown) (no (unknown) (unknown) Date of Service: (units (unknown) date) 08/08/22 unknown) (unknown) (no (unknown) (unknown) EXT: warm and well (units (unknown) date) perfused with no unknown) edema (unknown) (no (unknown) (unknown) Eos # (Auto) 0 (units (unknown) date) unknown) (unknown) (no (unknown) (unknown) Eos % (Auto) 0.8 L (units (unknown) date) unknown) (unknown) (no (unknown) (unknown) Estimated GFR > 60 (units (unknown) date) unknown) (unknown) (no (unknown) (unknown) Ethyl Alcohol 393 (units (unknown) date) H unknown) (unknown) (no (unknown) (unknown) Exam Narrative: (units (unknown) date) unknown) (unknown) (no (unknown) (unknown) Exam (units (unkno wn) date) unknown) (unknown) (no (unknown) (unknown) Family History (units (unknown) date) (Reviewed 08/01/22 unknown) @ 06:02 by Reinaldo Arthur DO) (unknown) (no (unknown) (unknown) Family/Other (units (u nknown) date) Alcoholism unknown) (unknown) (no (unknown) (unknown) Family/Other (units (u nknown) date) Diabetes mellitus unknown) (unknown) (no (unknown) (unknown) Father Alcoholism (units (unknown) date) unknown) (unknown) (no (unknown) (unknown) GEN: sedated, (units ( unknown) date) sleeping unknown) (unknown) (no (unknown) (unknown) Globulin 3.3 (units (u nknown) date) unknown) (unknown) (no (unknown) (unknown) Glucose 92 (units (unk nown) date) unknown) (unknown) (no (unknown) (unknown) Grandfather [...] extraction () unknown) (unknown) (no (unknown) (unknown) HEENT: moist (units (u nknown) date) mucous membranes, unknown) PERRL (unknown) (no (unknown) (unknown) Hct 37.0 (units (unkno wn) date) unknown) (unknown) (no (unknown) (unknown) Hgb 11.9 L (units (unk nown) date) unknown) (unknown) (no (unknown) (unknown) History + Physical (units (unknown) date) Report unknown) (unknown) (no (unknown) (unknown) History of Present (units (unknown) date) Illness unknown) (unknown) (no (unknown) (unknown) Home Medications (units (unknown) date) and Allergies unknown) (unknown) (no (unknown) (unknown) Home Medications (units (unknown) date) unknown) (unknown) (no (unknown) (unknown) I have utilized (units (unknown) date) all available unknown) resources to obtain, update, or review the (unknown) (no (unknown) (unknown) Insomnia (units (unkno wn) date) unknown) (unknown) (no (unknown) (unknown) [facility] (units (unknown) date) [address] unknown) [place] [address] (unknown) (no (unknown) (unknown) Laboratory Results (units (unknown) date) - last 24 hr unknown) (unknown) (no (unknown) (unknown) Labs (units (unkno wn) date) unknown) (unknown) (no (unknown) (unknown) Labs: (units (unkno wn) date) unknown) (unknown) (no (unknown) (unknown) Lipase 408 H (units (u nknown) date) unknown) (unknown) (no (unknown) (unknown) Lymph # (Auto) (units (unknown) date) 2600 unknown) (unknown) (no (unknown) (unknown) Lymph % (Auto) (units (unknown) date) 51.5 H unknown) (unknown) (no (unknown) (unknown) MCH 25.7 L (units (unk nown) date) unknown) (unknown) (no (unknown) (unknown) MCHC 32.1 (units (unkn own) date) unknown) (unknown) (no (unknown) (unknown) MCV 80.2 (units (unkno wn) date) unknown) (unknown) (no (unknown) (unknown) MIPS - Meds (units (un known) date) unknown) (unknown) (no (unknown) (unknown) Medical History (units (unknown) date) (Reviewed 08/01/22 unknown) @ 06:02 by Reinaldo Arthur DO) (unknown) (no (unknown) (unknown) Medication (units (unk nown) date) Instructions unknown) Recorded Confirmed Type (unknown) (no (unknown) (unknown) Meds (units (unkno wn) date) unknown) (unknown) (no (unknown) (unknown) Menometrorrhagia (units (unknown) date) unknown) (unknown) (no (unknown) (unknown) Yates # (Auto) 400 (units (unknown) date) unknown) (unknown) (no (unknown) (unknown) Yates % (Auto) 8.6 (units (unknown) date) unknown) (unknown) (no (unknown) (unknown) Mother Diabetes (units (unknown) date) mellitus unknown) (unknown) (no (unknown) (unknown) NECK: trachea (units ( unknown) date) midline, no JVD unknown) (unknown) (no (unknown) (unknown) NEURO: sleepy, (units (unknown) date) sedated, moving all unknown) extremities, no focal deficits noted (unknown) (no (unknown) (unknown) Narrative (units (unkn own) date) unknown) (unknown) (no (unknown) (unknown) Narrative: (units (unk nown) date) unknown) (unknown) (no (unknown) (unknown) Neut # (Auto) 1900 (units (unknown) date) unknown) (unknown) (no (unknown) (unknown) Neut % (Auto) 36.6 (units (unknown) date) L unknown) (unknown) (no (unknown) (unknown) Obesity (units (unkno wn) date) unknown) (unknown) (no (unknown) (unknown) Objective (units (unkn own) date) unknown) (unknown) (no (unknown) (unknown) Overweight (units (unk nown) date) unknown) (unknown) (no (unknown) (unknown) Oxygen Delivery (units (unknown) date) Method Room Air unknown) (unknown) (no (unknown) (unknown) PFSH (units (unkno wn) date) unknown) (unknown) (no (unknown) (unknown) PULM: clear (units (un known) date) bilaterally, no unknown) wheezes, rhonchi, rales (unknown) (no (unknown) (unknown) Patient: (units (unkno wn) date) Sarah Connors unknown) MR#: M (unknown) (no (unknown) (unknown) Plt Count 396 (units ( unknown) date) unknown) (unknown) (no (unknown) (unknown) Potassium 3.6 (units ( unknown) date) unknown) (unknown) (no (unknown) (unknown) Provider: (units (unkn own) date) Raymond Aguilera MD unknown) (unknown) (no (unknown) (unknown) Proxy: Rober (units (unknown) date) Dory, spouse unknown) (unknown) (no (unknown) (unknown) Pulse Oximetry 96 (units (unknown) date) unknown) (unknown) (no (unknown) (unknown) Pulse Rate 100 H (units (unknown) date) unknown) (unknown) (no (unknown) (unknown) Quality (units (unkno wn) date) unknown) (unknown) (no (unknown) (unknown) RBC 4.61 (units (unkno wn) date) unknown) (unknown) (no (unknown) (unknown) RDW 19.7 H (units (unk nown) date) unknown) (unknown) (no (unknown) (unknown) Respiratory Rate (units (unknown) date) 20 unknown) (unknown) (no (unknown) (unknown) Review of [...] (unknown) Social History (units (unknown) date) (Reviewed 08/01/22 unknown) @ 06:02 by Reinaldo Arthur DO) (unknown) (no (unknown) (unknown) Sodium 148 H D (units (unknown) date) unknown) (unknown) (no (unknown) (unknown) Surgical History (units (unknown) date) (Reviewed 08/01/22 unknown) @ 06:02 by Reinaldo Arthur DO) (unknown) (no (unknown) (unknown) Temperature 98 F (units (unknown) date) unknown) (unknown) (no (unknown) (unknown) Total Bilirubin (units (unknown) date) 0.4 unknown) (unknown) (no (unknown) (unknown) Total Protein 7.7 (units (unknown) date) unknown) (unknown) (no (unknown) (unknown) Vital Signs (units (un known) date) unknown) (unknown) (no (unknown) (unknown) WBC 5.1 (units (unkno wn) date) unknown) (unknown) (no (unknown) (unknown) [Embedded Image (units (unknown) date) Not Available] unknown) (unknown) (no (unknown) (unknown) [METOCLOPRAMIDE] (units (unknown) date) unknown) (unknown) (no (unknown) (unknown) alcohol intake: (units (unknown) date) current unknown) (unknown) (no (unknown) (unknown) and place in ICU (units (unknown) date) unknown) (unknown) (no (unknown) (unknown) chlordiazepoxide (units (unknown) date) HCl 25 mg capsule unknown) See Rx Instructions .Route 08/03/22 Rx (unknown) (no (unknown) (unknown) current (units (unkno wn) date) occupational unknown) exposures/hazards: Yes (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 with Pandemic ) (unknown) (no (unknown) (unknown) disulfiram 250 mg (units (unknown) date) tablet 250 mg PO unknown) DAILY #30 tabs 08/03/22 Rx (unknown) (no (unknown) (unknown) education level: (units (unknown) date) college unknown) (unknown) (no (unknown) (unknown) renee/zoroastrianism: (units (unknown) date) Buddhist unknown) (unknown) (no (unknown) (unknown) fluoxetine 10 mg (units (unknown) date) capsule 10 mg PO unknown) DAILY 07/13/22 08/01/22 History (unknown) (no (unknown) (unknown) herbals, (units (unkno wn) date) cannabis/cannabidio unknown) l products, and vitamin/mineral/ tary (unknown) (no (unknown) (unknown) household members: (units (unknown) date) significant other unknown) (unknown) (no (unknown) (unknown) hydrocodone (units (un known) date) [HYDROCODONE] unknown) AdvReac Unknown VOMITING Verified 07/12/22 16:18 (unknown) (no (unknown) (unknown) hydroxyzine HCl 50 (units (unknown) date) mg tablet 50 mg PO unknown) DAILY 07/13/22 08/01/22 History (unknown) (no (unknown) (unknown) marital status: (units (unknown) date) unknown) (unknown) (no (unknown) (unknown) mcg tablet (units (unk nown) date) (Tab-A-Kael) unknown) (unknown) (no (unknown) (unknown) metoclopramide (units (unknown) date) Allergy Mild unknown) RASH/HIVES Verified 07/12/22 16:18 (unknown) (no (unknown) (unknown) mg tablet (units (unkn own) date) unknown) (unknown) (no (unknown) (unknown) month (units (unkno wn) date) unknown) (unknown) (no (unknown) (unknown) multivitamin with (units (unknown) date) folic acid 400 1 unknown) tab PO DAILY #30 tabs 07/14/22 08/01/22 Rx (unknown) (no (unknown) (unknown) number of (units (unkn own) date) children: 1 unknown) (unknown) (no (unknown) (unknown) occupational (units (u nknown) date) status: employed unknown) (unknown) (no (unknown) (unknown) pantoprazole 40 mg (units (unknown) date) tablet,delayed 40 unknown) mg PO 0700 #30 tabs 07/14/22 08/01/22 Rx (unknown) (no (unknown) (unknown) patient?s current (units (unknown) date) medications. [If unknown) Yes, STOP here]: Yes (unknown) (no (unknown) (unknown) quetiapine 300 mg (units (unknown) date) tablet 300 mg PO unknown) DAILY 07/13/22 08/01/22 History (unknown) (no (unknown) (unknown) release (units (unkno wn) date) unknown) (unknown) (no (unknown) (unknown) second hand (units (un known) date) exposure: No unknown) (growing up as a child - not currently) (unknown) (no (unknown) (unknown) special renee (units ( unknown) date) needs: No unknown) (unknown) (no (unknown) (unknown) substance use (units ( unknown) date) type: does not use unknown) (unknown) (no (unknown) (unknown) thiamine (units (unkno wn) date) mononitrate (vit unknown) B1) 100 100 mg PO DAILY #30 tabs 03/04/23 03/22/23 Rx Result panel [id number] (unknown) (no (unknown) (unknown) (no value) (units (unk nown) date) unknown) (unknown) (no (unknown) (unknown) 'Current (units (unkno wn) date) medications' to unknown) include all prescriptions, fgwz-yls-tqfylmy products, (unknown) (no (unknown) (unknown) (nutritional) (units ( unknown) date) supplements. unknown) (unknown) (no (unknown) (unknown) (past 8 hours): (units (unknown) date) unknown) (unknown) (no (unknown) (unknown) -SW consult (units (un known) date) unknown) (unknown) (no (unknown) (unknown) -continue PPI (units ( unknown) date) unknown) (unknown) (no (unknown) (unknown) -continue ciwa (units (unknown) date) protocol, with unknown) ativan, start librium 50mg q6, ordered precedex (unknown) (no (unknown) (unknown) -continue prozac (units (unknown) date) unknown) (unknown) (no (unknown) (unknown) -continue to trend (units (unknown) date) unknown) (unknown) (no (unknown) (unknown) -each time she has (units (unknown) date) refused rehab unknown) (unknown) (no (unknown) (unknown) -follow up urine (units (unknown) date) cultures unknown) (unknown) (no (unknown) (unknown) -likely secondary (units (unknown) date) to inadequate PO unknown) intake due to alcoholism (unknown) (no (unknown) (unknown) -multiple (units (unkn own) date) admissions and unknown) hospital visits for alcohol withdrawal within the last (unknown) (no (unknown) (unknown) -ordered for high (units (unknown) date) dose thiamine for unknown) prevention/treatmen t of wernicke's (unknown) (no (unknown) (unknown) -per ED she is (units (unknown) date) requesting detox unknown) after drinking heavily after discharge (unknown) (no (unknown) (unknown) -per ED she was (units (unknown) date) hallucinating and unknown) agitated on arrival, received phenobarbital (unknown) (no (unknown) (unknown) -she was just (units ( unknown) date) discharged 5 days unknown) ago, refusing rehab (unknown) (no (unknown) (unknown) -suspect secondary (units (unknown) date) to alcohol unknown) withdrawal and phenobarbital and treat as above (unknown) (no (unknown) (unknown) -trend daily (units (u nknown) date) unknown) (unknown) (no (unknown) (unknown) -unable to discuss (units (unknown) date) with patient on unknown) admission as she is sedated (unknown) (no (unknown) (unknown) .COMPLEX #30 caps (units (unknown) date) unknown) (unknown) (no (unknown) (unknown) [id number] (units (unkn own) date) unknown) (unknown) (no (unknown) (unknown) 08/08/22 08/08/22 (units (unknown) date) 08/08/22 unknown) (unknown) (no (unknown) (unknown) 08/08/22 21:00 (units (unknown) date) unknown) (unknown) (no (unknown) (unknown) 08/08/22 2253 (units ( unknown) date) unknown) (unknown) (no (unknown) (unknown) 08/08/22 (units (unkno wn) date) unknown) (unknown) (no (unknown) (unknown) 1. Acute alcohol (units (unknown) date) withdrawal with DTs unknown) (unknown) (no (unknown) (unknown) 14 systems (units (unk nown) date) reviewed and unknown) negative aside from what is noted in HPI (unknown) (no (unknown) (unknown) 2. Acute (units (unkno wn) date) encephalopathy unknown) (unknown) (no (unknown) (unknown) 20:13 (units (unkno wn) date) unknown) (unknown) (no (unknown) (unknown) 21:00 21:00 21:00 (units (unknown) date) unknown) (unknown) (no (unknown) (unknown) 3. Hypernatremia (units (unknown) date) unknown) (unknown) (no (unknown) (unknown) 4. Depression and (units (unknown) date) anxiety unknown) (unknown) (no (unknown) (unknown) 5. Anemia, chronic (units (unknown) date) unknown) (unknown) (no (unknown) (unknown) 6. GERD (units (unkno wn) date) unknown) (unknown) (no (unknown) (unknown) ABD: soft, (units (unk nown) date) nontender, unknown) nondistended, no organomegaly (unknown) (no (unknown) (unknown) ALT 64 H (units (unkno wn) date) unknown) (unknown) (no (unknown) (unknown) AST 424 H (units (unkn own) date) unknown) (unknown) (no (unknown) (unknown) Age/Sex: 31 / F (units (unknown) date) unknown) (unknown) (no (unknown) (unknown) Albumin 4.4 (units (un known) date) unknown) (unknown) (no (unknown) (unknown) Albumin/Globulin (units (unknown) date) Ratio 1.3 unknown) (unknown) (no (unknown) (unknown) Alcohol withdrawal (units (unknown) date) delirium, acute, unknown) hyperactive (unknown) (no (unknown) (unknown) Alcoholism (units (unk nown) date) unknown) (unknown) (no (unknown) (unknown) Alkaline (units (unkno wn) date) Phosphatase 71 unknown) (unknown) (no (unknown) (unknown) Allergies (units (unkn own) date) unknown) (unknown) (no (unknown) (unknown) Allergy/AdvReac (units (unknown) date) Type Severity unknown) Reaction Status Date / Time (unknown) (no (unknown) (unknown) Anemia (-2018) (units (unknown) date) unknown) (unknown) (no (unknown) (unknown) Assessment + Plan (units (unknown) date) narrative: unknown) (unknown) (no (unknown) (unknown) Assessment + Plan (units (unknown) date) unknown) (unknown) (no (unknown) (unknown) BUN 7 (units (unkno wn) date) unknown) (unknown) (no (unknown) (unknown) BUN/Creatinine (units (unknown) date) Ratio 9.2 unknown) (unknown) (no (unknown) (unknown) Baso # (Auto) 100 (units (unknown) date) unknown) (unknown) (no (unknown) (unknown) Baso % (Auto) 2.5 (units (unknown) date) H unknown) (unknown) (no (unknown) (unknown) CODE: Full (units (unk nown) date) unknown) (unknown) (no (unknown) (unknown) CV: regular rate (units (unknown) date) and rhythm, no unknown) murmurs (unknown) (no (unknown) (unknown) Calcium 8.4 (units (un known) date) unknown) (unknown) (no (unknown) (unknown) Carbon Dioxide 33 (units (unknown) date) H unknown) (unknown) (no (unknown) (unknown) Chief complaint: (units (unknown) date) needs to detox unknown) (unknown) (no (unknown) (unknown) Chloride 104 (units (u nknown) date) unknown) (unknown) (no (unknown) (unknown) Creatinine 0.76 (units (unknown) date) unknown) (unknown) (no (unknown) (unknown) : 1990 (units (unknown) date) Acct:[id number] unknown) (unknown) (no (unknown) (unknown) Date Patient Seen: (units (unknown) date) 08/08/22 unknown) (unknown) (no (unknown) (unknown) Date of Service: (units (unknown) date) 08/08/22 unknown) (unknown) (no (unknown) (unknown) EXT: warm and well (units (unknown) date) perfused with no unknown) edema (unknown) (no (unknown) (unknown) Each time she has (units (unknown) date) refused further unknown) treatment to rehab upon discharge. Her last (unknown) (no (unknown) (unknown) Eos # (Auto) 0 (units (unknown) date) unknown) (unknown) (no (unknown) (unknown) Eos % (Auto) 0.8 L (units (unknown) date) unknown) (unknown) (no (unknown) (unknown) Estimated GFR > 60 (units (unknown) date) unknown) (unknown) (no (unknown) (unknown) Ethyl Alcohol 393 (units (unknown) date) H unknown) (unknown) (no (unknown) (unknown) Exam Narrative: (units (unknown) date) unknown) (unknown) (no (unknown) (unknown) Exam (units (unkno wn) date) unknown) (unknown) (no (unknown) (unknown) Family History (units (unknown) date) (Reviewed 08/08/22 unknown) @ 22:46 by Raymond Aguilera MD) (unknown) (no (unknown) (unknown) Family/Other (units (u nknown) date) Alcoholism unknown) (unknown) (no (unknown) (unknown) Family/Other (units (u nknown) date) Diabetes mellitus unknown) (unknown) (no (unknown) (unknown) Father Alcoholism (units (unknown) date) unknown) (unknown) (no (unknown) (unknown) GEN: sedated, (units ( unknown) date) sleeping unknown) (unknown) (no (unknown) (unknown) Globulin 3.3 (units (u nknown) date) unknown) (unknown) (no (unknown) (unknown) Glucose 92 (units (unk nown) date) unknown) (unknown) (no (unknown) (unknown) Grandfather [...] extraction () unknown) (unknown) (no (unknown) (unknown) HEENT: moist (units (u nknown) date) mucous membranes, unknown) PERRL (unknown) (no (unknown) (unknown) Hct 37.0 (units (unkno wn) date) unknown) (unknown) (no (unknown) (unknown) Hgb 11.9 L (units (unk nown) date) unknown) (unknown) (no (unknown) (unknown) History + Physical (units (unknown) date) Report unknown) (unknown) (no (unknown) (unknown) History of Present (units (unknown) date) Illness unknown) (unknown) (no (unknown) (unknown) Home Medications (units (unknown) date) and Allergies unknown) (unknown) (no (unknown) (unknown) Home Medications (units (unknown) date) unknown) (unknown) (no (unknown) (unknown) I have utilized (units (unknown) date) all available unknown) resources to obtain, update, or review the (unknown) (no (unknown) (unknown) In the ED workup (units (unknown) date) was done, vitals unknown) notable for tachycardia. Initial CIWA 17, she (unknown) (no (unknown) (unknown) Insomnia (units (unkno wn) date) unknown) (unknown) (no (unknown) (unknown) [facility] (units (unknown) date) [address] [place] [address] unknown) [place] [address] (unknown) (no (unknown) (unknown) Laboratory Results (units (unknown) date) - last 24 hr unknown) (unknown) (no (unknown) (unknown) Labs (units (unkno wn) date) unknown) (unknown) (no (unknown) (unknown) Labs: (units (unkno wn) date) unknown) (unknown) (no (unknown) (unknown) Lipase 408 H (units (u nknown) date) unknown) (unknown) (no (unknown) (unknown) Lymph # (Auto) (units (unknown) date) 2600 unknown) (unknown) (no (unknown) (unknown) Lymph % (Auto) (units (unknown) date) 51.5 H unknown) (unknown) (no (unknown) (unknown) MCH 25.7 L (units (unk nown) date) unknown) (unknown) (no (unknown) (unknown) MCHC 32.1 (units (unkn own) date) unknown) (unknown) (no (unknown) (unknown) MCV 80.2 (units (unkno wn) date) unknown) (unknown) (no (unknown) (unknown) MIPS - Meds (units (un known) date) unknown) (unknown) (no (unknown) (unknown) Medical History (units (unknown) date) (Reviewed 08/08/22 unknown) @ 22:46 by Raymond Aguilera MD) (unknown) (no (unknown) (unknown) Medication (units (unk nown) date) Instructions unknown) Recorded Confirmed Type (unknown) (no (unknown) (unknown) Meds (units (unkno wn) date) unknown) (unknown) (no (unknown) (unknown) Menometrorrhagia (units (unknown) date) unknown) (unknown) (no (unknown) (unknown) Yates # (Auto) 400 (units (unknown) date) unknown) (unknown) (no (unknown) (unknown) Yates % (Auto) 8.6 (units (unknown) date) unknown) (unknown) (no (unknown) (unknown) Mother Diabetes (units (unknown) date) mellitus unknown) (unknown) (no (unknown) (unknown) Ms. Connors is a 31W (units (unknown) date) with PMH alcohol unknown) abuse, DTs, alcoholic seizure who presents (unknown) (no (unknown) (unknown) NECK: trachea (units ( unknown) date) midline, no JVD unknown) (unknown) (no (unknown) (unknown) NEURO: sleepy, (units (unknown) date) sedated, moving all unknown) extremities, no focal deficits noted (unknown) (no (unknown) (unknown) Narrative (units (unkn own) date) unknown) (unknown) (no (unknown) (unknown) Narrative: (units (unk nown) date) unknown) (unknown) (no (unknown) (unknown) Neut # (Auto) 1900 (units (unknown) date) unknown) (unknown) (no (unknown) (unknown) Neut % (Auto) 36.6 (units (unknown) date) L unknown) (unknown) (no (unknown) (unknown) Obesity (units (unkno wn) date) unknown) (unknown) (no (unknown) (unknown) Objective (units (unkn own) date) unknown) (unknown) (no (unknown) (unknown) Overweight (units (unk nown) date) unknown) (unknown) (no (unknown) (unknown) Oxygen Delivery (units (unknown) date) Method Room Air unknown) (unknown) (no (unknown) (unknown) PFSH (units (unkno wn) date) unknown) (unknown) (no (unknown) (unknown) PULM: clear (units (un known) date) bilaterally, no unknown) wheezes, rhonchi, rales (unknown) (no (unknown) (unknown) Patient: (units (unkno wn) date) Sarah Connors R unknown) MR#: M (unknown) (no (unknown) (unknown) Plt Count 396 (units ( unknown) date) unknown) (unknown) (no (unknown) (unknown) Potassium 3.6 (units ( unknown) date) unknown) (unknown) (no (unknown) (unknown) Provider: (units (unkn own) date) Raymond Aguilera MD unknown) (unknown) (no (unknown) (unknown) Proxy: Rober (units (unknown) date) Dory, spouse unknown) (unknown) (no (unknown) (unknown) Pulse Oximetry 96 (units (unknown) date) unknown) (unknown) (no (unknown) (unknown) Pulse Rate 100 H (units (unknown) date) unknown) (unknown) (no (unknown) (unknown) Quality (units (unkno wn) date) unknown) (unknown) (no (unknown) (unknown) RBC 4.61 (units (unkno wn) date) unknown) (unknown) (no (unknown) (unknown) RDW 19.7 H (units (unk nown) date) unknown) (unknown) (no (unknown) (unknown) Respiratory Rate (units (unknown) date) 20 unknown) (unknown) (no (unknown) (unknown) Review of Systems (units (unknown) date) unknown) (unknown) (no (unknown) (unknown) S/P myringotomy (units (unknown) date) with insertion of unknown) tube (unknown) (no (unknown) (unknown) (spontaneous (units (unknown) date) vaginal delivery) unknown) (-09/05/18) (unknown) (no (unknown) (unknown) Signed (units (unkno wn) date) By:<Electronically unknown) signed by Raymond Aguilera MD> (unknown) (no (unknown) (unknown) Smoker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 (unknown) (unknown) Psych (units (unkno wn) date) unknown) (unknown) (no (unknown) (unknown) Pulse Oximetry 96 (units (unknown) date) 08/08/22 20:13 unknown) (unknown) (no (unknown) (unknown) Pulse Oximetry 96 (units (unknown) date) unknown) (unknown) (no (unknown) (unknown) Pulse Rate 100 H (units (unknown) date) 08/08/22 20:13 unknown) (unknown) (no (unknown) (unknown) Pulse Rate 100 H (units (unknown) date) unknown) (unknown) (no (unknown) (unknown) RBC (4.0-5.2) (units ( unknown) date) X106/uL unknown) (unknown) (no (unknown) (unknown) RBC 4.61 (4.0-5.2) (units (unknown) date) X106/uL unknown) (unknown) (no (unknown) (unknown) RDW (11.6-14.8) % (units (unknown) date) unknown) (unknown) (no (unknown) (unknown) RDW 19.7 H (units (unk nown) date) (11.6-14.8) % unknown) (unknown) (no (unknown) (unknown) ROS Unobtainable: (units (unknown) date) Unobtainable due to unknown) mental condition (unknown) (no (unknown) (unknown) Rate: regular rate (units (unknown) date) unknown) (unknown) (no (unknown) (unknown) Related Data (units (u nknown) date) unknown) (unknown) (no (unknown) (unknown) Resp (units (unkno wn) date) unknown) (unknown) (no (unknown) (unknown) Respiratory Rate (units (unknown) date) 20 08/08/22 20:13 unknown) (unknown) (no (unknown) (unknown) Respiratory Rate (units (unknown) date) 20 unknown) (unknown) (no (unknown) (unknown) Review of Systems (units (unknown) date) unknown) (unknown) (no (unknown) (unknown) Rhythm: regular (units (unknown) date) rhythm unknown) (unknown) (no (unknown) (unknown) S/P myringotomy [...] (unknown) Social History (units (unknown) date) (Reviewed 08/09/22 unknown) @ 01:42 by Will Benitez DO) (unknown) (no (unknown) (unknown) Sodium (137-145) (units (unknown) date) mmol/L unknown) (unknown) (no (unknown) (unknown) Sodium 148 H D (units (unknown) date) (137-145) mmol/L unknown) (unknown) (no (unknown) (unknown) Source: other (units ( unknown) date) (Friend) unknown) (unknown) (no (unknown) (unknown) Stated complaint: (units (unknown) date) needs to detox unknown) (unknown) (no (unknown) (unknown) Stop: 08/08/22 (units (unknown) date) 20:30 unknown) (unknown) (no (unknown) (unknown) Stop: 08/08/22 (units (unknown) date) 20:51 unknown) (unknown) (no (unknown) (unknown) Substance Use (units ( unknown) date) Type: does not use unknown) (unknown) (no (unknown) (unknown) Surgical History (units (unknown) date) (Reviewed 08/08/22 unknown) @ 22:46 by Raymond Aguilera MD) (unknown) (no (unknown) (unknown) TITRATE SANDY; (units (u nknown) date) Protocol unknown) (unknown) (no (unknown) (unknown) Temperature 98 F (units (unknown) date) 08/08/22 20:13 unknown) (unknown) (no (unknown) (unknown) Temperature 98 F (units (unknown) date) unknown) (unknown) (no (unknown) (unknown) Thiamine HCl 100 (units (unknown) date) mg/ Sodium unknown) (Chloride) 101 mls @ 404 mls/hr IV NOW ONE (unknown) (no (unknown) (unknown) Thiamine HCl 500 (units (unknown) date) mg/ Sodium unknown) (Chloride) 105 mls @ 420 mls/hr IV TID SANDY (unknown) (no (unknown) (unknown) Time Seen by (units (u nknown) date) Provider: 08/08/22 unknown) 20:27 (unknown) (no (unknown) (unknown) Total Bilirubin (units (unknown) date) (0.2-1.3) mg/dL unknown) (unknown) (no (unknown) (unknown) Total Bilirubin (units (unknown) date) 0.4 (0.2-1.3) mg/dL unknown) (unknown) (no (unknown) (unknown) Total Protein (units ( unknown) date) (6.3-8.2) g/dL unknown) (unknown) (no (unknown) (unknown) Total Protein 7.7 (units (unknown) date) (6.3-8.2) g/dL unknown) (unknown) (no (unknown) (unknown) Urinalysis and (units (unknown) date) Microscopic Stat unknown) (unknown) (no (unknown) (unknown) Urine Drug Screen, (units (unknown) date) Rapid Stat unknown) (unknown) (no (unknown) (unknown) Vital Signs - 8 hr (units (unknown) date) unknown) (unknown) (no (unknown) (unknown) Vital Signs (units (un known) date) unknown) (unknown) (no (unknown) (unknown) Vital signs: (units (u nknown) date) unknown) (unknown) (no (unknown) (unknown) WBC (4.5-11.0) (units (unknown) date) X103/uL unknown) (unknown) (no (unknown) (unknown) WBC 5.1 (4.5-11.0) (units (unknown) date) X103/uL unknown) (unknown) (no (unknown) (unknown) [Embedded Image (units (unknown) date) Not Available] unknown) (unknown) (no (unknown) (unknown) [METOCLOPRAMIDE] (units (unknown) date) unknown) (unknown) (no (unknown) (unknown) admissions to the (units (unknown) date) hospital. Each time unknown) that she is been admitted to the hospital (unknown) (no (unknown) (unknown) admitted 2 times (units (unknown) date) in the past this unknown) hospital most recently within the past couple (unknown) (no (unknown) (unknown) alcohol intake (units (unknown) date) frequency: 3 or unknown) more drinks per day (unknown) (no (unknown) (unknown) alcohol intake: (units (unknown) date) current unknown) (unknown) (no (unknown) (unknown) anxious in his (units (unknown) date) obviously unknown) hallucinating. She is very animated in the room. She (unknown) (no (unknown) (unknown) being very clear (units (unknown) date) with this she was unknown) only minimally interactive with the rest of (unknown) (no (unknown) (unknown) bit. She was able (units (unknown) date) to sleep. She was unknown) also given thiamine. Discussed the case (unknown) (no (unknown) (unknown) chlordiazepoxide (units (unknown) date) HCl 25 mg capsule unknown) See Rx Instructions .Route 08/03/22 (unknown) (no (unknown) (unknown) current (units (unkno wn) date) occupational unknown) exposures/hazards: Yes (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 with Pandemic ) (unknown) (no (unknown) (unknown) delirium and (units (u nknown) date) seizures. She is unknown) required Precedex in the ICU during her last 2 (unknown) (no (unknown) (unknown) department today (units (unknown) date) stating that she unknown) would like help with her drinking although (unknown) (no (unknown) (unknown) dexmedeTOMIDine in (units (unknown) date) 0.9 % NaCL unknown) (Precedex) 400 mcg in 100 mls @ 2.699 mls/hr IV (unknown) (no (unknown) (unknown) did say yes that (units (unknown) date) she wanted admitted unknown) for detox. Apparently her kids are (unknown) (no (unknown) (unknown) disulfiram 250 mg (units (unknown) date) tablet 250 mg PO unknown) DAILY #30 tabs 08/03/22 (unknown) (no (unknown) (unknown) education level: (units (unknown) date) college unknown) (unknown) (no (unknown) (unknown) renee/zoroastrianism: (units (unknown) date) Buddhist unknown) (unknown) (no (unknown) (unknown) fluoxetine 10 mg (units (unknown) date) capsule 10 mg PO unknown) DAILY 07/13/22 08/01/22 (unknown) (no (unknown) (unknown) hallucinating in (units (unknown) date) delirious. unknown) Obviously intoxicated. (unknown) (no (unknown) (unknown) household members: (units (unknown) date) significant other unknown) (unknown) (no (unknown) (unknown) hydrocodone (units (un known) date) [HYDROCODONE] unknown) AdvReac Unknown VOMITING Verified 07/12/22 16:18 (unknown) (no (unknown) (unknown) hydroxyzine HCl 50 (units (unknown) date) mg tablet 50 mg PO unknown) DAILY 07/13/22 08/01/22 (unknown) (no (unknown) (unknown) marital status: (units (unknown) date) unknown) (unknown) (no (unknown) (unknown) mcg tablet (units (unk nown) date) (Tab-A-Kael) unknown) (unknown) (no (unknown) (unknown) metoclopramide (units (unknown) date) Allergy Mild unknown) RASH/HIVES Verified 07/12/22 16:18 (unknown) (no (unknown) (unknown) mg tablet (units (unkn own) date) unknown) (unknown) (no (unknown) (unknown) multivitamin with (units (unknown) date) folic acid 400 1 unknown) tab PO DAILY #30 tabs 07/14/22 (unknown) (no (unknown) (unknown) number of (units (unkn own) date) children: 1 unknown) (unknown) (no (unknown) (unknown) occupational (units (u nknown) date) status: employed unknown) (unknown) (no (unknown) (unknown) pantoprazole 40 mg (units (unknown) date) tablet,delayed 40 unknown) mg PO 0700 #30 tabs 07/14/22 (unknown) (no (unknown) (unknown) quetiapine 300 mg (units (unknown) date) tablet 300 mg PO unknown) DAILY 07/13/22 08/01/22 (unknown) (no (unknown) (unknown) release (units (unkno wn) date) unknown) (unknown) (no (unknown) (unknown) returning home (units (unknown) date) next week and she unknown) wanted to be sober in order to see them. (unknown) (no (unknown) (unknown) second hand (units (un known) date) exposure: No unknown) (growing up as a child - not currently) (unknown) (no (unknown) (unknown) several weeks for (units (unknown) date) alcohol unknown) intoxication and alcohol withdrawals. She is been (unknown) (no (unknown) (unknown) she is been (units (un known) date) discharged home. unknown) She continues to drink. She returns to emergency (unknown) (no (unknown) (unknown) special renee (units ( unknown) date) needs: No unknown) (unknown) (no (unknown) (unknown) substance use (units ( unknown) date) type: does not use unknown) (unknown) (no (unknown) (unknown) the exam. She is (units (unknown) date) only partially unknown) directable. Labs were obtained. Alcohol level (unknown) (no (unknown) (unknown) thiamine (units (unkno wn) date) mononitrate (vit unknown) B1) 100 100 mg PO DAILY #30 tabs 07/14/22 (unknown) (no (unknown) (unknown) treatment. (units (unk nown) date) unknown) (unknown) (no (unknown) (unknown) wanted to come to (units (unknown) date) the emergency unknown) department because she wanted help for drinking. (unknown) (no (unknown) (unknown) was elevated. She (units (unknown) date) was given unknown) phenobarbital and afterwards calm down quite a (unknown) (no (unknown) (unknown) weeks needing (units ( unknown) date) admission to the unknown) hospital in a Precedex drip for her symptoms. (unknown) (no (unknown) (unknown) with Dr. Aguilera (units (unknown) date) the hospitalist who unknown) will admit for further evaluation and Result panel [id number] (unknown) (no date) (unknown) (unknown) 0.2 e.u./dl (unkn own) (unknown) (no date) (unknown) (unknown) 1 (units (unkn own) unknown) (unknown) (no date) (unknown) (unknown) 1.015 (units (unkn own) unknown) (unknown) (no date) (unknown) (unknown) 6.0 (units (unkn own) unknown) (unknown) (no date) (unknown) (unknown) CLEAR (units (unkn own) unknown) (unknown) (no date) (unknown) (unknown) NEGATIVE (units (unkn own) unknown) (unknown) (no date) (unknown) (unknown) NEGATIVE g/dl (unkn own) (unknown) (no date) (unknown) (unknown) POSITIVE (units (unkn own) unknown) (unknown) (no date) (unknown) (unknown) YELLOW (units (unkn own) unknown) (unknown) (no date) (unknown) (unknown) YELLOW (units (unkn own) unknown) Result panel 2462 (unknown) (no date) (unknown) (unknown) Negative (units (unkn own) unknown) Result panel 2463 (unknown) (no date) (unknown) (unknown) 1.015 (units (unkn own) unknown) (unknown) (no date) (unknown) (unknown) 20 (units (unkn own) unknown) (unknown) (no date) (unknown) (unknown) 6 (units (unkn own) unknown) (unknown) (no date) (unknown) (unknown) Negative (units (unkn own) unknown) (unknown) (no date) (unknown) (unknown) Positive (units (unkn own) unknown) Result panel 2464 (unknown) (no date) (unknown) (unknown) 0.2 e.u./dl (unkn own) (unknown) (no date) (unknown) (unknown) 1 (units (unkn own) unknown) (unknown) (no date) (unknown) (unknown) 1.015 (units (unkn own) unknown) (unknown) (no date) (unknown) (unknown) 10-30/HPF (units (unk nown) unknown) (unknown) (no date) (unknown) (unknown) 6.0 (units (unkn own) unknown) (unknown) (no date) (unknown) (unknown) CLEAR (units (unkn own) unknown) (unknown) (no date) (unknown) (unknown) Many (>30) (units (un known) unknown) (unknown) (no date) (unknown) (unknown) NEGATIVE (units (unkn own) unknown) (unknown) (no date) (unknown) (unknown) NEGATIVE g/dl (unkn own) (unknown) (no date) (unknown) (unknown) None Seen (units (unk nown) unknown) (unknown) (no date) (unknown) (unknown) POSITIVE (units (unkn own) unknown) (unknown) (no date) (unknown) (unknown) Specimen (units (unkn own) Cultured unknown) (unknown) (no date) (unknown) (unknown) YELLOW (units (unkn own) unknown) (unknown) (no date) (unknown) (unknown) YELLOW (units (unkn own) unknown) Result panel 2465 (unknown) (no date) (unknown) (unknown) 0 /ul (unkn own) (unknown) (no date) (unknown) (unknown) 0.7 % (unkn own) (unknown) (no date) (unknown) (unknown) 1.9 % (unkn own) (unknown) (no date) (unknown) (unknown) 10.1 g/dl (unkn own) (unknown) (no date) (unknown) (unknown) 100 /ul (unkn own) (unknown) (no date) (unknown) (unknown) 19.5 % (unkn own) (unknown) (no date) (unknown) (unknown) 1900 /ul (unkn own) (unknown) (no date) (unknown) (unknown) 25.4 pg (unkn own) (unknown) (no date) (unknown) (unknown) 2800 /ul (unkn own) (unknown) (no date) (unknown) (unknown) 3.98 x10 6/ul (unkn own) (unknown) (no date) (unknown) (unknown) 300 /ul (unkn own) (unknown) (no date) (unknown) (unknown) 31.4 % (unkn own) (unknown) (no date) (unknown) (unknown) 32.2 % (unkn own) (unknown) (no date) (unknown) (unknown) 332 x10 3/ul (unkn own) (unknown) (no date) (unknown) (unknown) 36.7 % (unkn own) (unknown) (no date) (unknown) (unknown) 5.2 x10 3/ul (unkn own) (unknown) (no date) (unknown) (unknown) 54.2 % (unkn own) (unknown) (no date) (unknown) (unknown) 6.5 % (unkn own) (unknown) (no date) (unknown) (unknown) 79.0 fl (unkn own) Result panel 2466 (unknown) (no (unknown) (unknown) (no value) (units (unk nown) date) unknown) (unknown) (no (unknown) (unknown) (1) Alcohol (units (un known) date) withdrawal unknown) delirium, acute, hyperactive: (unknown) (no (unknown) (unknown) (2) Abnormal (units (u nknown) date) urinalysis: unknown) (unknown) (no (unknown) (unknown) (past 8 hours): (units (unknown) date) unknown) (unknown) (no (unknown) (unknown) -Continue CIWA, (units (unknown) date) Precedex, thiamine, unknown) folate (unknown) (no (unknown) (unknown) -Follow up on (units ( unknown) date) reflexed culture unknown) (unknown) (no (unknown) (unknown) 0.2 MCG/KG/HR (units ( unknown) date) unknown) (unknown) (no (unknown) (unknown) [id number] (units (unkn own) date) unknown) (unknown) (no (unknown) (unknown) 00:00 08/09/22 (units (unknown) date) unknown) (unknown) (no (unknown) (unknown) 00:00 (units (unkno wn) date) unknown) (unknown) (no (unknown) (unknown) 01:00 08/09/22 (units (unknown) date) unknown) (unknown) (no (unknown) (unknown) 01:06 08/09/22 (units (unknown) date) unknown) (unknown) (no (unknown) (unknown) 01:06 (units (unkno wn) date) unknown) (unknown) (no (unknown) (unknown) 01:29 08/09/22 (units (unknown) date) unknown) (unknown) (no (unknown) (unknown) 01:29 (units (unkno wn) date) unknown) (unknown) (no (unknown) (unknown) 02:00 08/09/22 (units (unknown) date) unknown) (unknown) (no (unknown) (unknown) 07/14/22 [Rx (units (u nknown) date) Confirmed 08/01/22] unknown) (unknown) (no (unknown) (unknown) 08/01/22] (units (unkn own) date) unknown) (unknown) (no (unknown) (unknown) 08/03/22 [Rx] (units ( unknown) date) unknown) (unknown) (no (unknown) (unknown) 08/08/22 08/08/22 (units (unknown) date) 08/08/22 unknown) (unknown) (no (unknown) (unknown) 08/08/22 08/08/22 (units (unknown) date) 08/09/22 unknown) (unknown) (no (unknown) (unknown) 08/08/22 21:00 (units (unknown) date) unknown) (unknown) (no (unknown) (unknown) 08/08/22 (units (unkno wn) date) unknown) (unknown) (no (unknown) (unknown) 08/09/22 08/09/22 (units (unknown) date) unknown) (unknown) (no (unknown) (unknown) 08/09/22 04:01 (units (unknown) date) unknown) (unknown) (no (unknown) (unknown) 08/09/22 (units (unkno wn) date) unknown) (unknown) (no (unknown) (unknown) 03:00 08/09/22 (units (unknown) date) unknown) (unknown) (no (unknown) (unknown) 03:00 (units (unkno wn) date) unknown) (unknown) (no (unknown) (unknown) 03:02 08/09/22 (units (unknown) date) unknown) (unknown) (no (unknown) (unknown) 03:02 (units (unkno wn) date) unknown) (unknown) (no (unknown) (unknown) 04:30 04:30 (units (un known) date) unknown) (unknown) (no (unknown) (unknown) 21:00 21:00 21:00 (units (unknown) date) unknown) (unknown) (no (unknown) (unknown) 21:00 22:30 04:30 (units (unknown) date) unknown) (unknown) (no (unknown) (unknown) 22:53 08/08/22 (units (unknown) date) unknown) (unknown) (no (unknown) (unknown) 23:00 08/08/22 (units (unknown) date) unknown) (unknown) (no (unknown) (unknown) 23:00 (units (unkno wn) date) unknown) (unknown) (no (unknown) (unknown) 23:24 08/09/22 (units (unknown) date) unknown) (unknown) (no (unknown) (unknown) 31 y.o. admitted (units (unknown) date) for EtOH unknown) intoxication, withdrawal and seizure. CIWA of 17. (unknown) (no (unknown) (unknown) ALT 64 H (units (unkno wn) date) unknown) (unknown) (no (unknown) (unknown) ALT (units (unkno wn) date) unknown) (unknown) (no (unknown) (unknown) AST 424 H (units (unkn own) date) unknown) (unknown) (no (unknown) (unknown) AST (units (unkno wn) date) unknown) (unknown) (no (unknown) (unknown) Age/Sex: 31 / F (units (unknown) date) unknown) (unknown) (no (unknown) (unknown) Albumin 4.4 (units (un known) date) unknown) (unknown) (no (unknown) (unknown) Albumin (units (unkno wn) date) unknown) (unknown) (no (unknown) (unknown) Albumin/Globulin (units (unknown) date) Ratio 1.3 unknown) (unknown) (no (unknown) (unknown) Albumin/Globulin (units (unknown) date) Ratio unknown) (unknown) (no (unknown) (unknown) Alcohol Withdrawal (units (unknown) date) unknown) (unknown) (no (unknown) (unknown) Alcohol withdrawal (units (unknown) date) delirium, acute, unknown) hyperactive (unknown) (no (unknown) (unknown) Alcoholism (units (unk nown) date) unknown) (unknown) (no (unknown) (unknown) Alkaline (units (unkno wn) date) Phosphatase 71 unknown) (unknown) (no (unknown) (unknown) Alkaline (units (unkno wn) date) Phosphatase unknown) (unknown) (no (unknown) (unknown) Anemia (-2018) (units (unknown) date) unknown) (unknown) (no (unknown) (unknown) Assessment + Plan (units (unknown) date) unknown) (unknown) (no (unknown) (unknown) Assessment and (units (unknown) date) plan unknown) (unknown) (no (unknown) (unknown) BUN 7 (units (unkno wn) date) unknown) (unknown) (no (unknown) (unknown) BUN (units (unkno wn) date) unknown) (unknown) (no (unknown) (unknown) BUN/Creatinine (units (unknown) date) Ratio 9.2 unknown) (unknown) (no (unknown) (unknown) BUN/Creatinine (units (unknown) date) Ratio unknown) (unknown) (no (unknown) (unknown) Baso # (Auto) 100 (units (unknown) date) unknown) (unknown) (no (unknown) (unknown) Baso # (Auto) (units ( unknown) date) unknown) (unknown) (no (unknown) (unknown) Baso % (Auto) 2.5 (units (unknown) date) H unknown) (unknown) (no (unknown) (unknown) Baso % (Auto) (units ( unknown) date) unknown) (unknown) (no (unknown) (unknown) Blood Pressure (units (unknown) date) 109/70 75/40 L unknown) (unknown) (no (unknown) (unknown) Blood Pressure (units (unknown) date) 109/70 unknown) (unknown) (no (unknown) (unknown) Blood Pressure (units (unknown) date) 74/40 L unknown) (unknown) (no (unknown) (unknown) Blood Pressure (units (unknown) date) 77/42 L 80/45 L unknown) (unknown) (no (unknown) (unknown) Blood Pressure (units (unknown) date) 78/43 L unknown) (unknown) (no (unknown) (unknown) Blood Pressure (units (unknown) date) 80/44 L 79/43 L unknown) (unknown) (no (unknown) (unknown) CIWAPRN PRN (units (un known) date) Administration unknown) (unknown) (no (unknown) (unknown) Calcium 8.4 (units (un known) date) unknown) (unknown) (no (unknown) (unknown) Calcium (units (unkno wn) date) unknown) (unknown) (no (unknown) (unknown) Carbon Dioxide 33 (units (unknown) date) H unknown) (unknown) (no (unknown) (unknown) Carbon Dioxide (units (unknown) date) unknown) (unknown) (no (unknown) (unknown) Cardio (units (unkno wn) date) unknown) (unknown) (no (unknown) (unknown) Chief complaint: (units (unknown) date) needs to detox unknown) (unknown) (no (unknown) (unknown) Chlordiazepoxide (units (unknown) date) 25 Mg Capsule PO unknown) Not Given (unknown) (no (unknown) (unknown) Chlordiazepoxide (units (unknown) date) HCl 50 mg 08/09/22 unknown) 00:00 08/09/22 01:13 (unknown) (no (unknown) (unknown) Chloride 104 (units (u nknown) date) unknown) (unknown) (no (unknown) (unknown) Chloride (units (unkno wn) date) unknown) (unknown) (no (unknown) (unknown) Confirmed (units (unkn own) date) 08/01/22] unknown) (unknown) (no (unknown) (unknown) Consent obtained (units (unknown) date) for unknown) 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: Yes (unknown) (no (unknown) (unknown) Const (units (unkno wn) date) unknown) (unknown) (no (unknown) (unknown) Consult details (units (unknown) date) unknown) (unknown) (no (unknown) (unknown) Creatinine 0.76 (units (unknown) date) unknown) (unknown) (no (unknown) (unknown) Creatinine (units (unk nown) date) unknown) (unknown) (no (unknown) (unknown) Current (units (unkno wn) date) Medications unknown) (unknown) (no (unknown) (unknown) : 1990 (units (unknown) date) Acct:[id number] unknown) (unknown) (no (unknown) (unknown) Date of Service: (units (unknown) date) 08/08/22 unknown) (unknown) (no (unknown) (unknown) Effort + (units (unkno wn) date) Inspection: normal unknown) respiratory effort (unknown) (no (unknown) (unknown) Eos # (Auto) 0 (units (unknown) date) unknown) (unknown) (no (unknown) (unknown) Eos # (Auto) (units (u nknown) date) unknown) (unknown) (no (unknown) (unknown) Eos % (Auto) 0.8 L (units (unknown) date) unknown) (unknown) (no (unknown) (unknown) Eos % (Auto) (units (u nknown) date) unknown) (unknown) (no (unknown) (unknown) Estimated GFR > 60 (units (unknown) date) unknown) (unknown) (no (unknown) (unknown) Estimated GFR (units ( unknown) date) unknown) (unknown) (no (unknown) (unknown) EtOH. Had been on (units (unknown) date) EtOH binge since unknown) discharge. Given phenobarbital in ED but (unknown) (no (unknown) (unknown) Ethyl Alcohol 393 (units (unknown) date) H unknown) (unknown) (no (unknown) (unknown) Ethyl Alcohol (units ( unknown) date) unknown) (unknown) (no (unknown) (unknown) Exam (units (unkno wn) date) unknown) (unknown) (no (unknown) (unknown) Family History (units (unknown) date) (Reviewed 08/09/22 unknown) @ 05:03 by Roberto Vasquez MD) (unknown) (no (unknown) (unknown) Family/Other (units (u nknown) date) Alcoholism unknown) (unknown) (no (unknown) (unknown) Family/Other (units (u nknown) date) Diabetes mellitus unknown) (unknown) (no (unknown) (unknown) Father Alcoholism (units (unknown) date) unknown) (unknown) (no (unknown) (unknown) Fourth visit to ED (units (unknown) date) this month for unknown) intoxication. Just discharged 5 days ago for (unknown) (no (unknown) (unknown) General: (units (unkno wn) date) comfortable unknown) (unknown) (no (unknown) (unknown) Generic Name Dose (units (unknown) date) Route Start Last unknown) Admin (unknown) (no (unknown) (unknown) Globulin 3.3 (units (u nknown) date) unknown) (unknown) (no (unknown) (unknown) Globulin (units (unkno wn) date) unknown) (unknown) (no (unknown) (unknown) Glucose 92 (units (unk nown) date) unknown) (unknown) (no (unknown) (unknown) Glucose (units (unkno wn) date) unknown) (unknown) (no [...] extraction (-2013) unknown) (unknown) (no (unknown) (unknown) Hct 37.0 (units (unkno wn) date) unknown) (unknown) (no (unknown) (unknown) Hct (units (unkno wn) date) unknown) (unknown) (no (unknown) (unknown) Hgb 11.9 L (units (unk nown) date) unknown) (unknown) (no (unknown) (unknown) Hgb (units (unkno wn) date) unknown) (unknown) (no (unknown) (unknown) History of Present (units (unknown) date) Illness unknown) (unknown) (no (unknown) (unknown) Home Medications (units (unknown) date) unknown) (unknown) (no (unknown) (unknown) IF CAMERA (units (unkn own) date) ACTIVATED, patient unknown) seen via real-time interactive audiovisual (unknown) (no (unknown) (unknown) Insomnia (units (unkno wn) date) unknown) (unknown) (no (unknown) (unknown) [facility] (units (unknown) date) [address] [place] [address] unknown) [place] [address] (unknown) (no (unknown) (unknown) Laboratory Results (units (unknown) date) - last 24 hr unknown) (unknown) (no (unknown) (unknown) Labs (units (unkno wn) date) unknown) (unknown) (no (unknown) (unknown) Labs: (units (unkno wn) date) unknown) (unknown) (no (unknown) (unknown) Lipase 408 H (units (u nknown) date) unknown) (unknown) (no (unknown) (unknown) Lipase (units (unkno wn) date) unknown) (unknown) (no (unknown) (unknown) Lorazepam 0 mg (units (unknown) date) 08/08/22 22:48 unknown) 08/08/22 23:00 (unknown) (no (unknown) (unknown) Lorazepam 2 Mg/Ml (units (unknown) date) Inj IV 2 mg unknown) (unknown) (no (unknown) (unknown) Lymph # (Auto) (units (unknown) date) 2600 unknown) (unknown) (no (unknown) (unknown) Lymph # (Auto) (units (unknown) date) unknown) (unknown) (no (unknown) (unknown) Lymph % (Auto) (units (unknown) date) 51.5 H unknown) (unknown) (no (unknown) (unknown) Lymph % (Auto) (units (unknown) date) unknown) (unknown) (no (unknown) (unknown) MCH 25.7 L (units (unk nown) date) unknown) (unknown) (no (unknown) (unknown) MCH (units (unkno wn) date) unknown) (unknown) (no (unknown) (unknown) MCHC 32.1 (units (unkn own) date) unknown) (unknown) (no (unknown) (unknown) MCHC (units (unkno wn) date) unknown) (unknown) (no (unknown) (unknown) MCV 80.2 (units (unkno wn) date) unknown) (unknown) (no (unknown) (unknown) MCV (units (unkno wn) date) unknown) (unknown) (no (unknown) (unknown) Magnesium 2.2 (units ( unknown) date) unknown) (unknown) (no (unknown) (unknown) Magnesium (units (unkn own) date) unknown) (unknown) (no (unknown) (unknown) Medical History (units (unknown) date) (Reviewed 08/09/22 unknown) @ 05:03 by Roberto Vasquez MD) (unknown) (no (unknown) (unknown) Medications: (units (u nknown) date) unknown) (unknown) (no (unknown) (unknown) Menometrorrhagia (units (unknown) date) unknown) (unknown) (no (unknown) (unknown) Yates # (Auto) 400 (units (unknown) date) unknown) (unknown) (no (unknown) (unknown) Yates # (Auto) (units ( unknown) date) unknown) (unknown) (no (unknown) (unknown) Yates % (Auto) 8.6 (units (unknown) date) unknown) (unknown) (no (unknown) (unknown) Yates % (Auto) (units ( unknown) date) unknown) (unknown) (no (unknown) (unknown) Mother Diabetes (units (unknown) date) mellitus unknown) (unknown) (no (unknown) (unknown) Narrative: (units (unk nown) date) unknown) (unknown) (no (unknown) (unknown) Nausea And (units (unk nown) date) Vomiting unknown) (unknown) (no (unknown) (unknown) Neut # (Auto) 1900 (units (unknown) date) unknown) (unknown) (no (unknown) (unknown) Neut # (Auto) (units ( unknown) date) unknown) (unknown) (no (unknown) (unknown) Neut % (Auto) 36.6 (units (unknown) date) L unknown) (unknown) (no (unknown) (unknown) Neut % (Auto) (units ( unknown) date) unknown) (unknown) (no (unknown) (unknown) Obesity (units (unkno wn) date) unknown) (unknown) (no (unknown) (unknown) Objective (units (unkn own) date) unknown) (unknown) (no (unknown) (unknown) Ondansetron 4 Mg/2 (units (unknown) date) Ml Inj IV 4 mg unknown) (unknown) (no (unknown) (unknown) Ondansetron HCl 4 (units (unknown) date) mg 08/08/22 22:48 unknown) 08/08/22 23:09 (unknown) (no (unknown) (unknown) Other (units (unkno wn) date) participants/roles: unknown) RN (unknown) (no (unknown) (unknown) Overweight (units (unk nown) date) unknown) (unknown) (no (unknown) (unknown) Oxygen Delivery (units (unknown) date) Method Room Air unknown) (unknown) (no (unknown) (unknown) PFSH (units (unkno wn) date) unknown) (unknown) (no (unknown) (unknown) Patient Location: (units (unknown) date) ICU unknown) (unknown) (no (unknown) (unknown) Patient: (units (unkno wn) date) Sarah Connors unknown) MR#: M (unknown) (no (unknown) (unknown) Plan: (units (unkno wn) date) unknown) (unknown) (no (unknown) (unknown) Plt Count 396 (units ( unknown) date) unknown) (unknown) (no (unknown) (unknown) Plt Count (units (unkn own) date) unknown) (unknown) (no (unknown) (unknown) Potassium 3.6 (units ( unknown) date) unknown) (unknown) (no (unknown) (unknown) Potassium (units (unkn own) date) unknown) (unknown) (no (unknown) (unknown) Precedex IV 0.2 (units (unknown) date) mcg/kg/hr unknown) (unknown) (no (unknown) (unknown) Protocol (units (unkno wn) date) unknown) (unknown) (no (unknown) (unknown) Provider location (units (unknown) date) (State): [place] unknown) (unknown) (no (unknown) (unknown) Provider: (units (unkn own) date) Roberto Vasquez unknown) (unknown) (no (unknown) (unknown) Pulse Oximetry 94 (units (unknown) date) unknown) (unknown) (no (unknown) (unknown) Pulse Oximetry 95 (units (unknown) date) 95 unknown) (unknown) (no (unknown) (unknown) Pulse Oximetry 95 (units (unknown) date) unknown) (unknown) (no (unknown) (unknown) Pulse Oximetry 96 (units (unknown) date) 94 unknown) (unknown) (no (unknown) (unknown) Pulse Rate 75 75 (units (unknown) date) unknown) (unknown) (no (unknown) (unknown) Pulse Rate 75 (units ( unknown) date) unknown) (unknown) (no (unknown) (unknown) Pulse Rate 79 76 (units (unknown) date) unknown) (unknown) (no (unknown) (unknown) Pulse Rate 83 83 (units (unknown) date) unknown) (unknown) (no (unknown) (unknown) Pulse Rate 93 H 89 (units (unknown) date) unknown) (unknown) (no (unknown) (unknown) Q6HR SANDY (units (unkno wn) date) unknown) (unknown) (no (unknown) (unknown) Q8HR PRN (units (unkno wn) date) Administration unknown) (unknown) (no (unknown) (unknown) RBC 4.61 (units (unkno wn) date) unknown) (unknown) (no (unknown) (unknown) RBC (units (unkno wn) date) unknown) (unknown) (no (unknown) (unknown) RDW 19.7 H (units (unk nown) date) unknown) (unknown) (no (unknown) (unknown) RDW (units (unkno wn) date) unknown) (unknown) (no (unknown) (unknown) Rate: regular rate (units (unknown) date) unknown) (unknown) (no (unknown) (unknown) Resp (units (unkno wn) date) unknown) (unknown) (no (unknown) (unknown) Respiratory Rate (units (unknown) date) 14 19 unknown) (unknown) (no (unknown) (unknown) Respiratory Rate (units (unknown) date) 21 20 unknown) (unknown) (no (unknown) (unknown) Respiratory Rate (units (unknown) date) 22 23 unknown) (unknown) (no (unknown) (unknown) Respiratory Rate (units (unknown) date) 27 H unknown) (unknown) (no (unknown) (unknown) Respiratory Rate (units (unknown) date) 37 H 16 unknown) (unknown) (no (unknown) (unknown) Respiratory Rate (units (unknown) date) 37 H unknown) (unknown) (no (unknown) (unknown) Review of Systems (units (unknown) date) unknown) (unknown) (no (unknown) (unknown) Rhythm: regular (units (unknown) date) rhythm unknown) (unknown) (no (unknown) (unknown) S/P myringotomy (units (unknown) date) with insertion of unknown) tube (unknown) (no (unknown) (unknown) SARS-CoV-2 (PCR) (units (unknown) date) Negative unknown) (unknown) (no (unknown) (unknown) SARS-CoV-2 (PCR) (units (unknown) date) unknown) (unknown) (no (unknown) (unknown) (spontaneous (units (unknown) date) vaginal delivery) unknown) (-09/05/18) (unknown) (no (unknown) (unknown) Signed By: (units (unk nown) date) unknown) (unknown) (no (unknown) (unknown) Sleeping (units (unkno wn) date) comfortably; did unknown) not awaken pt (unknown) (no (unknown) (unknown) Smoker (units (unkno wn) date) unknown) (unknown) (no (unknown) (unknown) Smoking Status: (units (unknown) date) Former smoker unknown) (unknown) (no (unknown) (unknown) Social History (units (unknown) date) (Reviewed 08/09/22 unknown) @ 05:03 by Roberto Vasquez MD) (unknown) (no (unknown) (unknown) Sodium 148 H D (units (unknown) date) unknown) (unknown) (no (unknown) (unknown) Sodium (units (unkno wn) date) unknown) (unknown) (no (unknown) (unknown) Status: Acute (units ( unknown) date) unknown) (unknown) (no (unknown) (unknown) Surgical History (units (unknown) date) (Reviewed 08/09/22 unknown) @ 05:03 by Roberto Vasquez MD) (unknown) (no (unknown) (unknown) TITRATE SANDY 2.699 (units (unknown) date) mls/hr unknown) (unknown) (no (unknown) (unknown) Teleintensivist (units (unknown) date) Consult Note unknown) (unknown) (no (unknown) (unknown) Titration (units (unkn own) date) unknown) (unknown) (no (unknown) (unknown) Total Bilirubin (units (unknown) date) 0.4 unknown) (unknown) (no (unknown) (unknown) Total Bilirubin (units (unknown) date) unknown) (unknown) (no (unknown) (unknown) Total Protein 7.7 (units (unknown) date) unknown) (unknown) (no (unknown) (unknown) Total Protein (units ( unknown) date) unknown) (unknown) (no (unknown) (unknown) Trade Name Freq (units (unknown) date) PRN Reason Stop unknown) Dose Admin (unknown) (no (unknown) (unknown) U Benzodiazepines (units (unknown) date) Scrn Positive H unknown) (unknown) (no (unknown) (unknown) U Benzodiazepines (units (unknown) date) Scrn unknown) (unknown) (no (unknown) (unknown) U Marijuana (THC) (units (unknown) date) Screen Negative unknown) (unknown) (no (unknown) (unknown) U Marijuana (THC) (units (unknown) date) Screen unknown) (unknown) (no (unknown) (unknown) U Methamphetamines (units (unknown) date) Scrn Negative unknown) (unknown) (no (unknown) (unknown) U Methamphetamines (units (unknown) date) Scrn unknown) (unknown) (no (unknown) (unknown) U Opiates 300ng/mL (units (unknown) date) cut Negative unknown) (unknown) (no (unknown) (unknown) U Opiates 300ng/mL (units (unknown) date) cut unknown) (unknown) (no (unknown) (unknown) U Tricyclic (units (un known) date) Antidepress unknown) Positive H (unknown) (no (unknown) (unknown) U Tricyclic (units (un known) date) Antidepress unknown) (unknown) (no (unknown) (unknown) Ur Amphetamines (units (unknown) date) Screen Negative unknown) (unknown) (no (unknown) (unknown) Ur Amphetamines (units (unknown) date) Screen unknown) (unknown) (no (unknown) (unknown) Ur Barbiturates (units (unknown) date) Screen Positive H unknown) (unknown) (no (unknown) (unknown) Ur Barbiturates (units (unknown) date) Screen unknown) (unknown) (no (unknown) (unknown) Ur Culture (units (unk nown) date) Indicated? Specimen unknown) cultured (unknown) (no (unknown) (unknown) Ur Culture (units (unk nown) date) Indicated? unknown) (unknown) (no (unknown) (unknown) Ur Leukocyte (units (u nknown) date) Esterase 1+ H unknown) (unknown) (no (unknown) (unknown) Ur Leukocyte (units (u nknown) date) Esterase unknown) (unknown) (no (unknown) (unknown) Ur MDMA Scrn (units (u nknown) date) (Ecstasy) Negative unknown) (unknown) (no (unknown) (unknown) Ur MDMA Scrn (units (u nknown) date) (Ecstasy) unknown) (unknown) (no (unknown) (unknown) Ur Oxycodone (units (u nknown) date) Screen Negative unknown) (unknown) (no (unknown) (unknown) Ur Oxycodone (units (u nknown) date) Screen unknown) (unknown) (no (unknown) (unknown) Ur Phencyclidine (units (unknown) date) Scrn Negative unknown) (unknown) (no (unknown) (unknown) Ur Phencyclidine (units (unknown) date) Scrn unknown) (unknown) (no (unknown) (unknown) Ur Specific (units (un known) date) [place] 1.015 unknown) (unknown) (no (unknown) (unknown) Ur Specific (units (un known) date) [place] unknown) (unknown) (no (unknown) (unknown) Urine Appearance (units (unknown) date) Clear unknown) (unknown) (no (unknown) (unknown) Urine Appearance (units (unknown) date) unknown) (unknown) (no (unknown) (unknown) Urine Bacteria (units (unknown) date) Many (>30) H unknown) (unknown) (no (unknown) (unknown) Urine Bacteria (units (unknown) date) unknown) (unknown) (no (unknown) (unknown) Urine Bilirubin (units (unknown) date) Negative unknown) (unknown) (no (unknown) (unknown) Urine Bilirubin (units (unknown) date) unknown) (unknown) (no (unknown) (unknown) Urine Cocaine (units ( unknown) date) Screen Negative unknown) (unknown) (no (unknown) (unknown) Urine Cocaine (units ( unknown) date) Screen unknown) (unknown) (no (unknown) (unknown) Urine Color Yellow (units (unknown) date) unknown) (unknown) (no (unknown) (unknown) Urine Color (units (un known) date) unknown) (unknown) (no (unknown) (unknown) Urine Glucose (UA) (units (unknown) date) Negative unknown) (unknown) (no (unknown) (unknown) Urine Glucose (UA) (units (unknown) date) unknown) (unknown) (no (unknown) (unknown) Urine Ketones (units ( unknown) date) Negative unknown) (unknown) (no (unknown) (unknown) Urine Ketones (units ( unknown) date) unknown) (unknown) (no (unknown) (unknown) Urine Methadone (units (unknown) date) Screen Negative unknown) (unknown) (no (unknown) (unknown) Urine Methadone (units (unknown) date) Screen unknown) (unknown) (no (unknown) (unknown) Urine Nitrate (units ( unknown) date) Positive H unknown) (unknown) (no (unknown) (unknown) Urine Nitrate (units ( unknown) date) unknown) (unknown) (no (unknown) (unknown) Urine Occult Blood (units (unknown) date) Negative unknown) (unknown) (no (unknown) (unknown) Urine Occult Blood (units (unknown) date) unknown) (unknown) (no (unknown) (unknown) Urine (units (unknown) date) Test Negative unknown) (unknown) (no (unknown) (unknown) Urine (units (unknown) date) Test unknown) (unknown) (no (unknown) (unknown) Urine Protein (units ( unknown) date) Negative unknown) (unknown) (no (unknown) (unknown) Urine Protein (units ( unknown) date) unknown) (unknown) (no (unknown) (unknown) Urine RBC None (units (unknown) date) seen unknown) (unknown) (no (unknown) (unknown) Urine RBC (units (unkn own) date) unknown) (unknown) (no (unknown) (unknown) Urine Urobilinogen (units (unknown) date) 0.2 unknown) (unknown) (no (unknown) (unknown) Urine Urobilinogen (units (unknown) date) unknown) (unknown) (no (unknown) (unknown) Urine WBC (units (unkn own) date) 10-30/hpf H unknown) (unknown) (no (unknown) (unknown) Urine WBC (units (unkn own) date) unknown) (unknown) (no (unknown) (unknown) Urine pH 6.0 (units (u nknown) date) unknown) (unknown) (no (unknown) (unknown) Urine pH (units (unkno wn) date) unknown) (unknown) (no (unknown) (unknown) Visit Medications (units (unknown) date) (administered) unknown) (unknown) (no (unknown) (unknown) Vital Signs (units (un known) date) unknown) (unknown) (no (unknown) (unknown) WBC 5.1 (units (unkno wn) date) unknown) (unknown) (no (unknown) (unknown) WBC (units (unkno wn) date) unknown) (unknown) (no (unknown) (unknown) [Embedded Image (units (unknown) date) Not Available] unknown) (unknown) (no (unknown) (unknown) [Rx Confirmed (units ( unknown) date) 08/01/22] unknown) (unknown) (no (unknown) (unknown) alcohol intake: (units (unknown) date) current unknown) (unknown) (no (unknown) (unknown) chlordiazepoxide (units (unknown) date) HCl 25 mg capsule unknown) See Rx Instructions .Route .COMPLEX #30 caps (unknown) (no (unknown) (unknown) communication: (units (unknown) date) Camera activated unknown) (unknown) (no (unknown) (unknown) current (units (unkno wn) date) occupational unknown) exposures/hazards: Yes (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 with Pandemic ) (unknown) (no (unknown) (unknown) dexmedeTOMIDine in (units (unknown) date) 0.9 % NaCL 400 mcg unknown) in 100 mls @ 2.699 mls/hr 08/08/22 22:48 (unknown) (no (unknown) (unknown) disulfiram 250 mg (units (unknown) date) tablet 250 mg PO unknown) DAILY #30 tabs 08/03/22 [Rx] (unknown) (no (unknown) (unknown) education level: (units (unknown) date) college unknown) (unknown) (no (unknown) (unknown) renee/zoroastrianism: (units (unknown) date) Buddhist unknown) (unknown) (no (unknown) (unknown) fluoxetine 10 mg (units (unknown) date) capsule 10 mg PO unknown) DAILY 07/13/22 [History Confirmed 08/01/22] (unknown) (no (unknown) (unknown) household members: (units (unknown) date) significant other unknown) (unknown) (no (unknown) (unknown) hydroxyzine HCl 50 (units (unknown) date) mg tablet 50 mg PO unknown) DAILY 07/13/22 [History Confirmed (unknown) (no (unknown) (unknown) marital status: (units (unknown) date) unknown) (unknown) (no (unknown) (unknown) multivitamin with (units (unknown) date) folic acid 400 mcg unknown) tablet (Tab-A-Kael) 1 tab PO DAILY #30 tabs (unknown) (no (unknown) (unknown) number of (units (unkn own) date) children: 1 unknown) (unknown) (no (unknown) (unknown) occupational (units (u nknown) date) status: employed unknown) (unknown) (no (unknown) (unknown) pantoprazole 40 mg (units (unknown) date) tablet,delayed unknown) release 40 mg PO 0700 #30 tabs 07/14/22 [Rx (unknown) (no (unknown) (unknown) quetiapine 300 mg (units (unknown) date) tablet 300 mg PO unknown) DAILY 07/13/22 [History Confirmed 08/01/22] (unknown) (no (unknown) (unknown) second hand (units (un known) date) exposure: No unknown) (growing up as a child - not currently) (unknown) (no (unknown) (unknown) special renee (units ( unknown) date) needs: No unknown) (unknown) (no (unknown) (unknown) substance use (units ( unknown) date) type: does not use unknown) (unknown) (no (unknown) (unknown) thiamine (units (unkno wn) date) mononitrate (vit unknown) B1) 100 mg tablet 100 mg PO DAILY #30 tabs 07/14/22 (unknown) (no (unknown) (unknown) ultimately started (units (unknown) date) on Precedex - this unknown) is currently @ 0.2 mcg/kg/hr. Result panel [id number] (unknown) (no date) (unknown) (unknown) > 60 ml/min (unkn own) (unknown) (no date) (unknown) (unknown) > 60 ml/min (unkn own) (unknown) (no date) (unknown) (unknown) 0.90 mg/dl (unkn own) (unknown) (no date) (unknown) (unknown) 107 mmol/l (unkn own) (unknown) (no date) (unknown) (unknown) 145 mmol/l (unkn own) (unknown) (no date) (unknown) (unknown) 3.5 mmol/l (unkn own) (unknown) (no date) (unknown) (unknown) 30 mmol/l (unkn own) (unknown) (no date) (unknown) (unknown) 7.7 mg/dl (unkn own) (unknown) (no date) (unknown) (unknown) 8 mg/dl (unkn own) (unknown) (no date) (unknown) (unknown) 8.9 (units unknown) (unknown) (unknown) (no date) (unknown) (unknown) 84 mg/dl (unkn own) (unknown) (no date) (unknown) (unknown) 84 mg/dl (unkn own) Result panel [id number] (unknown) (no (unknown) (unknown) (no value) (units (unk nown) date) unknown) (unknown) (no (unknown) (unknown) (1) Alcohol (units (un known) date) withdrawal unknown) delirium, acute, hyperactive: (unknown) (no (unknown) (unknown) (2) Abnormal (units (u nknown) date) urinalysis: unknown) (unknown) (no (unknown) (unknown) (past 8 hours): (units (unknown) date) unknown) (unknown) (no (unknown) (unknown) -Continue (units (unkn own) date) CIWA-directed unknown) lorazepam, Libirium, Precedex, thiamine, folate as per (unknown) (no (unknown) (unknown) -Follow up on (units ( unknown) date) reflexed culture unknown) (unknown) (no (unknown) (unknown) 0.2 MCG/KG/HR (units ( unknown) date) unknown) (unknown) (no (unknown) (unknown) [id number] (units (unkn own) date) unknown) (unknown) (no (unknown) (unknown) 00:00 08/09/22 (units (unknown) date) unknown) (unknown) (no (unknown) (unknown) 00:00 (units (unkno wn) date) unknown) (unknown) (no (unknown) (unknown) 01:00 08/09/22 (units (unknown) date) unknown) (unknown) (no (unknown) (unknown) 01:06 08/09/22 (units (unknown) date) unknown) (unknown) (no (unknown) (unknown) 01:06 (units (unkno wn) date) unknown) (unknown) (no (unknown) (unknown) 01:29 08/09/22 (units (unknown) date) unknown) (unknown) (no (unknown) (unknown) 01: (units (unkno wn) date) unknown) (unknown) (no (unknown) (unknown) 02:00 08/09/22 (units (unknown) date) unknown) (unknown) (no (unknown) (unknown) 07/14/22 [Rx (units (u nknown) date) Confirmed 08/01/22] unknown) (unknown) (no (unknown) (unknown) 08/01/22] (units (unkn own) date) unknown) (unknown) (no (unknown) (unknown) 08/03/22 [Rx] (units ( unknown) date) unknown) (unknown) (no (unknown) (unknown) 08/08/22 08/08/22 (units (unknown) date) 08/08/22 unknown) (unknown) (no (unknown) (unknown) 08/08/22 08/08/22 (units (unknown) date) 08/09/22 unknown) (unknown) (no (unknown) (unknown) 08/08/22 21:00 (units (unknown) date) unknown) (unknown) (no (unknown) (unknown) 08/08/22 (units (unkno wn) date) unknown) (unknown) (no (unknown) (unknown) 08/09/22 08/09/22 (units (unknown) date) unknown) (unknown) (no (unknown) (unknown) 08/09/22 04:01 (units (unknown) date) unknown) (unknown) (no (unknown) (unknown) 08/09/22 0508 (units ( unknown) date) unknown) (unknown) (no (unknown) (unknown) 08/09/22 (units (unkno wn) date) unknown) (unknown) (no (unknown) (unknown) 03:00 08/09/22 (units (unknown) date) unknown) (unknown) (no (unknown) (unknown) 03:00 (units (unkno wn) date) unknown) (unknown) (no (unknown) (unknown) 03:02 08/09/22 (units (unknown) date) unknown) (unknown) (no (unknown) (unknown) 03:02 (units (unkno wn) date) unknown) (unknown) (no (unknown) (unknown) 04:30 04:30 (units (un known) date) unknown) (unknown) (no (unknown) (unknown) 21:00 21:00 21:00 (units (unknown) date) unknown) (unknown) (no (unknown) (unknown) 21:00 22:30 04:30 (units (unknown) date) unknown) (unknown) (no (unknown) (unknown) 22:53 08/08/22 (units (unknown) date) unknown) (unknown) (no (unknown) (unknown) 23:00 08/08/22 (units (unknown) date) unknown) (unknown) (no (unknown) (unknown) 23:00 (units (unkno wn) date) unknown) (unknown) (no (unknown) (unknown) 23:24 08/09/22 (units (unknown) date) unknown) (unknown) (no (unknown) (unknown) 31 y.o. admitted (units (unknown) date) for EtOH unknown) intoxication, withdrawal and seizure. CIWA of 17. (unknown) (no (unknown) (unknown) ALT 64 H (units (unkno wn) date) unknown) (unknown) (no (unknown) (unknown) ALT (units (unkno wn) date) unknown) (unknown) (no (unknown) (unknown) AST 424 H (units (unkn own) date) unknown) (unknown) (no (unknown) (unknown) AST (units (unkno wn) date) unknown) (unknown) (no (unknown) (unknown) Age/Sex: 31 / F (units (unknown) date) unknown) (unknown) (no (unknown) (unknown) Albumin 4.4 (units (un known) date) unknown) (unknown) (no (unknown) (unknown) Albumin (units (unkno wn) date) unknown) (unknown) (no (unknown) (unknown) Albumin/Globulin (units (unknown) date) Ratio 1.3 unknown) (unknown) (no (unknown) (unknown) Albumin/Globulin (units (unknown) date) Ratio unknown) (unknown) (no (unknown) (unknown) Alcohol Withdrawal (units (unknown) date) unknown) (unknown) (no (unknown) (unknown) Alcohol withdrawal (units (unknown) date) delirium, acute, unknown) hyperactive (unknown) (no (unknown) (unknown) Alcoholism (units (unk nown) date) unknown) (unknown) (no (unknown) (unknown) Alkaline (units (unkno wn) date) Phosphatase 71 unknown) (unknown) (no (unknown) (unknown) Alkaline (units (unkno wn) date) Phosphatase unknown) (unknown) (no (unknown) (unknown) Anemia (-2018) (units (unknown) date) unknown) (unknown) (no (unknown) (unknown) Assessment + Plan (units (unknown) date) unknown) (unknown) (no (unknown) (unknown) Assessment and (units (unknown) date) plan unknown) (unknown) (no (unknown) (unknown) BUN 7 (units (unkno wn) date) unknown) (unknown) (no (unknown) (unknown) BUN (units (unkno wn) date) unknown) (unknown) (no (unknown) (unknown) BUN/Creatinine (units (unknown) date) Ratio 9.2 unknown) (unknown) (no (unknown) (unknown) BUN/Creatinine (units (unknown) date) Ratio unknown) (unknown) (no (unknown) (unknown) Baso # (Auto) 100 (units (unknown) date) unknown) (unknown) (no (unknown) (unknown) Baso # (Auto) (units ( unknown) date) unknown) (unknown) (no (unknown) (unknown) Baso % (Auto) 2.5 (units (unknown) date) H unknown) (unknown) (no (unknown) (unknown) Baso % (Auto) (units ( unknown) date) unknown) (unknown) (no (unknown) (unknown) Blood Pressure (units (unknown) date) 109/70 75/40 L unknown) (unknown) (no (unknown) (unknown) Blood Pressure (units (unknown) date) 109/70 unknown) (unknown) (no (unknown) (unknown) Blood Pressure (units (unknown) date) 74/40 L unknown) (unknown) (no (unknown) (unknown) Blood Pressure (units (unknown) date) 77/42 L 80/45 L unknown) (unknown) (no (unknown) (unknown) Blood Pressure (units (unknown) date) 78/43 L unknown) (unknown) (no (unknown) (unknown) Blood Pressure (units (unknown) date) 80/44 L 79/43 L unknown) (unknown) (no (unknown) (unknown) CIWAPRN PRN (units (un known) date) Administration unknown) (unknown) (no (unknown) (unknown) Calcium 8.4 (units (un known) date) unknown) (unknown) (no (unknown) (unknown) Calcium (units (unkno wn) date) unknown) (unknown) (no (unknown) (unknown) Carbon Dioxide 33 (units (unknown) date) H unknown) (unknown) (no (unknown) (unknown) Carbon Dioxide (units (unknown) date) unknown) (unknown) (no (unknown) (unknown) Cardio (units (unkno wn) date) unknown) (unknown) (no (unknown) (unknown) Chief complaint: (units (unknown) date) needs to detox unknown) (unknown) (no (unknown) (unknown) Chlordiazepoxide (units (unknown) date) 25 Mg Capsule PO unknown) Not Given (unknown) (no (unknown) (unknown) Chlordiazepoxide (units (unknown) date) HCl 50 mg 08/09/22 unknown) 00:00 08/09/22 01:13 (unknown) (no (unknown) (unknown) Chloride 104 (units (u nknown) date) unknown) (unknown) (no (unknown) (unknown) Chloride (units (unkno wn) date) unknown) (unknown) (no (unknown) (unknown) Confirmed (units (unkn own) date) 08/01/22] unknown) (unknown) (no (unknown) (unknown) Consent obtained (units (unknown) date) for unknown) 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: Yes (unknown) (no (unknown) (unknown) Const (units (unkno wn) date) unknown) (unknown) (no (unknown) (unknown) Consult details (units (unknown) date) unknown) (unknown) (no (unknown) (unknown) Creatinine 0.76 (units (unknown) date) unknown) (unknown) (no (unknown) (unknown) Creatinine (units (unk nown) date) unknown) (unknown) (no (unknown) (unknown) Current (units (unkno wn) date) Medications unknown) (unknown) (no (unknown) (unknown) : 1990 (units (unknown) date) Acct:[id number] unknown) (unknown) (no (unknown) (unknown) Date of Service: (units (unknown) date) 08/08/22 unknown) (unknown) (no (unknown) (unknown) Effort + (units (unkno wn) date) Inspection: normal unknown) respiratory effort (unknown) (no (unknown) (unknown) Eos # (Auto) 0 (units (unknown) date) unknown) (unknown) (no (unknown) (unknown) Eos # (Auto) (units (u nknown) date) unknown) (unknown) (no (unknown) (unknown) Eos % (Auto) 0.8 L (units (unknown) date) unknown) (unknown) (no (unknown) (unknown) Eos % (Auto) (units (u nknown) date) unknown) (unknown) (no (unknown) (unknown) Estimated GFR > 60 (units (unknown) date) unknown) (unknown) (no (unknown) (unknown) Estimated GFR (units ( unknown) date) unknown) (unknown) (no (unknown) (unknown) EtOH. Had been on (units (unknown) date) EtOH binge since unknown) discharge. Given phenobarbital in ED but (unknown) (no (unknown) (unknown) Ethyl Alcohol 393 (units (unknown) date) H unknown) (unknown) (no (unknown) (unknown) Ethyl Alcohol (units ( unknown) date) unknown) (unknown) (no (unknown) (unknown) Exam (units (unkno wn) date) unknown) (unknown) (no (unknown) (unknown) Family History (units (unknown) date) (Reviewed 08/09/22 unknown) @ 05:03 by Roberto Vasquez MD) (unknown) (no (unknown) (unknown) Family/Other (units (u nknown) date) Alcoholism unknown) (unknown) (no (unknown) (unknown) Family/Other (units (u nknown) date) Diabetes mellitus unknown) (unknown) (no (unknown) (unknown) Father Alcoholism (units (unknown) date) unknown) (unknown) (no (unknown) (unknown) Fourth visit to ED (units (unknown) date) this month for unknown) intoxication. Just discharged 5 days ago for (unknown) (no (unknown) (unknown) General: (units (unkno wn) date) comfortable unknown) (unknown) (no (unknown) (unknown) Generic Name Dose (units (unknown) date) Route Start Last unknown) Admin (unknown) (no (unknown) (unknown) Globulin 3.3 (units (u nknown) date) unknown) (unknown) (no (unknown) (unknown) Globulin (units (unkno wn) date) unknown) (unknown) (no (unknown) (unknown) Glucose 92 (units (unk nown) date) unknown) (unknown) (no (unknown) (unknown) Glucose (units (unkno wn) date) unknown) (unknown) (no [...] extraction (-2013) unknown) (unknown) (no (unknown) (unknown) Hct 37.0 (units (unkno wn) date) unknown) (unknown) (no (unknown) (unknown) Hct (units (unkno wn) date) unknown) (unknown) (no (unknown) (unknown) Hgb 11.9 L (units (unk nown) date) unknown) (unknown) (no (unknown) (unknown) Hgb (units (unkno wn) date) unknown) (unknown) (no (unknown) (unknown) History of Present (units (unknown) date) Illness unknown) (unknown) (no (unknown) (unknown) Home Medications (units (unknown) date) unknown) (unknown) (no (unknown) (unknown) IF CAMERA (units (unkn own) date) ACTIVATED, patient unknown) seen via real-time interactive audiovisual (unknown) (no (unknown) (unknown) Insomnia (units (unkno wn) date) unknown) (unknown) (no (unknown) (unknown) [facility] (units (unknown) date) [address] [place] [address] unknown) [place] [address] (unknown) (no (unknown) (unknown) Laboratory Results (units (unknown) date) - last 24 hr unknown) (unknown) (no (unknown) (unknown) Labs (units (unkno wn) date) unknown) (unknown) (no (unknown) (unknown) Labs: (units (unkno wn) date) unknown) (unknown) (no (unknown) (unknown) Lipase 408 H (units (u nknown) date) unknown) (unknown) (no (unknown) (unknown) Lipase (units (unkno wn) date) unknown) (unknown) (no (unknown) (unknown) Lorazepam 0 mg (units (unknown) date) 08/08/22 22:48 unknown) 08/08/22 23:00 (unknown) (no (unknown) (unknown) Lorazepam 2 Mg/Ml (units (unknown) date) Inj IV 2 mg unknown) (unknown) (no (unknown) (unknown) Lymph # (Auto) (units (unknown) date) 2600 unknown) (unknown) (no (unknown) (unknown) Lymph # (Auto) (units (unknown) date) unknown) (unknown) (no (unknown) (unknown) Lymph % (Auto) (units (unknown) date) 51.5 H unknown) (unknown) (no (unknown) (unknown) Lymph % (Auto) (units (unknown) date) unknown) (unknown) (no (unknown) (unknown) MCH 25.7 L (units (unk nown) date) unknown) (unknown) (no (unknown) (unknown) MCH (units (unkno wn) date) unknown) (unknown) (no (unknown) (unknown) MCHC 32.1 (units (unkn own) date) unknown) (unknown) (no (unknown) (unknown) MCHC (units (unkno wn) date) unknown) (unknown) (no (unknown) (unknown) MCV 80.2 (units (unkno wn) date) unknown) (unknown) (no (unknown) (unknown) MCV (units (unkno wn) date) unknown) (unknown) (no (unknown) (unknown) Magnesium 2.2 (units ( unknown) date) unknown) (unknown) (no (unknown) (unknown) Magnesium (units (unkn own) date) unknown) (unknown) (no (unknown) (unknown) Medical History (units (unknown) date) (Reviewed 08/09/22 unknown) @ 05:03 by Roberto Vasquez MD) (unknown) (no (unknown) (unknown) Medications: (units (u nknown) date) unknown) (unknown) (no (unknown) (unknown) Menometrorrhagia (units (unknown) date) unknown) (unknown) (no (unknown) (unknown) Yates # (Auto) 400 (units (unknown) date) unknown) (unknown) (no (unknown) (unknown) Yates # (Auto) (units ( unknown) date) unknown) (unknown) (no (unknown) (unknown) Yates % (Auto) 8.6 (units (unknown) date) unknown) (unknown) (no (unknown) (unknown) Yates % (Auto) (units ( unknown) date) unknown) (unknown) (no (unknown) (unknown) Mother Diabetes (units (unknown) date) mellitus unknown) (unknown) (no (unknown) (unknown) Narrative: (units (unk nown) date) unknown) (unknown) (no (unknown) (unknown) Nausea And (units (unk nown) date) Vomiting unknown) (unknown) (no (unknown) (unknown) Neut # (Auto) 1900 (units (unknown) date) unknown) (unknown) (no (unknown) (unknown) Neut # (Auto) (units ( unknown) date) unknown) (unknown) (no (unknown) (unknown) Neut % (Auto) 36.6 (units (unknown) date) L unknown) (unknown) (no (unknown) (unknown) Neut % (Auto) (units ( unknown) date) unknown) (unknown) (no (unknown) (unknown) Obesity (units (unkno wn) date) unknown) (unknown) (no (unknown) (unknown) Objective (units (unkn own) date) unknown) (unknown) (no (unknown) (unknown) Ondansetron 4 Mg/2 (units (unknown) date) Ml Inj IV 4 mg unknown) (unknown) (no (unknown) (unknown) Ondansetron HCl 4 (units (unknown) date) mg 08/08/22 22:48 unknown) 08/08/22 23:09 (unknown) (no (unknown) (unknown) Other (units (unkno wn) date) participants/roles: unknown) RN (unknown) (no (unknown) (unknown) Overweight (units (unk nown) date) unknown) (unknown) (no (unknown) (unknown) Oxygen Delivery (units (unknown) date) Method Room Air unknown) (unknown) (no (unknown) (unknown) PFSH (units (unkno wn) date) unknown) (unknown) (no (unknown) (unknown) Patient Location: (units (unknown) date) ICU unknown) (unknown) (no (unknown) (unknown) Patient: (units (unkno wn) date) Sarah Connors R unknown) MR#: M (unknown) (no (unknown) (unknown) Plan: (units (unkno wn) date) unknown) (unknown) (no (unknown) (unknown) Plt Count 396 (units ( unknown) date) unknown) (unknown) (no (unknown) (unknown) Plt Count (units (unkn own) date) unknown) (unknown) (no (unknown) (unknown) Potassium 3.6 (units ( unknown) date) unknown) (unknown) (no (unknown) (unknown) Potassium (units (unkn own) date) unknown) (unknown) (no (unknown) (unknown) Precedex IV 0.2 (units (unknown) date) mcg/kg/hr unknown) (unknown) (no (unknown) (unknown) Protocol (units (unkno wn) date) unknown) (unknown) (no (unknown) (unknown) Provider location (units (unknown) date) (State): [place] unknown) (unknown) (no (unknown) (unknown) Provider: (units (unkn own) date) Roberto Vasquez unknown) (unknown) (no (unknown) (unknown) Pulse Oximetry 94 (units (unknown) date) unknown) (unknown) (no (unknown) (unknown) Pulse Oximetry 95 (units (unknown) date) 95 unknown) (unknown) (no (unknown) (unknown) Pulse Oximetry 95 (units (unknown) date) unknown) (unknown) (no (unknown) (unknown) Pulse Oximetry 96 (units (unknown) date) 94 unknown) (unknown) (no (unknown) (unknown) Pulse Rate 75 75 (units (unknown) date) unknown) (unknown) (no (unknown) (unknown) Pulse Rate 75 (units ( unknown) date) unknown) (unknown) (no (unknown) (unknown) Pulse Rate 79 76 (units (unknown) date) unknown) (unknown) (no (unknown) (unknown) Pulse Rate 83 83 (units (unknown) date) unknown) (unknown) (no (unknown) (unknown) Pulse Rate 93 H 89 (units (unknown) date) unknown) (unknown) (no (unknown) (unknown) Q6HR SANDY (units (unkno wn) date) unknown) (unknown) (no (unknown) (unknown) Q8HR PRN (units (unkno wn) date) Administration unknown) (unknown) (no (unknown) (unknown) RBC 4.61 (units (unkno wn) date) unknown) (unknown) (no (unknown) (unknown) RBC (units (unkno wn) date) unknown) (unknown) (no (unknown) (unknown) RDW 19.7 H (units (unk nown) date) unknown) (unknown) (no (unknown) (unknown) RDW (units (unkno wn) date) unknown) (unknown) (no (unknown) (unknown) Rate: regular rate (units (unknown) date) unknown) (unknown) (no (unknown) (unknown) Resp (units (unkno wn) date) unknown) (unknown) (no (unknown) (unknown) Respiratory Rate (units (unknown) date) 14 19 unknown) (unknown) (no (unknown) (unknown) Respiratory Rate (units (unknown) date) 21 20 unknown) (unknown) (no (unknown) (unknown) Respiratory Rate (units (unknown) date) 22 23 unknown) (unknown) (no (unknown) (unknown) Respiratory Rate (units (unknown) date) 27 H unknown) (unknown) (no (unknown) (unknown) Respiratory Rate (units (unknown) date) 37 H 16 unknown) (unknown) (no (unknown) (unknown) Respiratory Rate (units (unknown) date) 37 H unknown) (unknown) (no (unknown) (unknown) Review of Systems (units (unknown) date) unknown) (unknown) (no (unknown) (unknown) Rhythm: regular (units (unknown) date) rhythm unknown) (unknown) (no (unknown) (unknown) S/P myringotomy (units (unknown) date) with insertion of unknown) tube (unknown) (no (unknown) (unknown) SARS-CoV-2 (PCR) (units (unknown) date) Negative unknown) (unknown) (no (unknown) (unknown) SARS-CoV-2 (PCR) (units (unknown) date) unknown) (unknown) (no (unknown) (unknown) (spontaneous (units (unknown) date) vaginal delivery) unknown) (-09/05/18) (unknown) (no (unknown) (unknown) Signed (units (unkno wn) date) By:<Electronically unknown) signed by Roberto Vasquez MD> (unknown) (no (unknown) (unknown) Sleeping (units (unkno wn) date) comfortably; did unknown) not awaken pt (unknown) (no (unknown) (unknown) Smoker (units (unkno wn) date) unknown) (unknown) (no (unknown) (unknown) Smoking Status: (units (unknown) date) Former smoker unknown) (unknown) (no (unknown) (unknown) Social History (units (unknown) date) (Reviewed 08/09/22 unknown) @ 05:03 by Roberto Vasquez MD) (unknown) (no (unknown) (unknown) Sodium 148 H D (units (unknown) date) unknown) (unknown) (no (unknown) (unknown) Sodium (units (unkno wn) date) unknown) (unknown) (no (unknown) (unknown) Status: Acute (units ( unknown) date) unknown) (unknown) (no (unknown) (unknown) Surgical History (units (unknown) date) (Reviewed 08/09/22 unknown) @ 05:03 by Roberto Vasquez MD) (unknown) (no (unknown) (unknown) TITRATE SANDY 2.699 (units (unknown) date) mls/hr unknown) (unknown) (no (unknown) (unknown) Teleintensivist (units (unknown) date) Consult Note unknown) (unknown) (no (unknown) (unknown) Time Spent With (units (unknown) date) Patient unknown) (unknown) (no (unknown) (unknown) Time with patient: (units (unknown) date) less than 30 unknown) minutes (unknown) (no (unknown) (unknown) Titration (units (unkn own) date) unknown) (unknown) (no (unknown) (unknown) Total Bilirubin (units (unknown) date) 0.4 unknown) (unknown) (no (unknown) (unknown) Total Bilirubin (units (unknown) date) unknown) (unknown) (no (unknown) (unknown) Total Protein 7.7 (units (unknown) date) unknown) (unknown) (no (unknown) (unknown) Total Protein (units ( unknown) date) unknown) (unknown) (no (unknown) (unknown) Trade Name Freq (units (unknown) date) PRN Reason Stop unknown) Dose Admin (unknown) (no (unknown) (unknown) U Benzodiazepines (units (unknown) date) Scrn Positive H unknown) (unknown) (no (unknown) (unknown) U Benzodiazepines (units (unknown) date) Scrn unknown) (unknown) (no (unknown) (unknown) U Marijuana (THC) (units (unknown) date) Screen Negative unknown) (unknown) (no (unknown) (unknown) U Marijuana (THC) (units (unknown) date) Screen unknown) (unknown) (no (unknown) (unknown) U Methamphetamines (units (unknown) date) Scrn Negative unknown) (unknown) (no (unknown) (unknown) U Methamphetamines (units (unknown) date) Scrn unknown) (unknown) (no (unknown) (unknown) U Opiates 300ng/mL (units (unknown) date) cut Negative unknown) (unknown) (no (unknown) (unknown) U Opiates 300ng/mL (units (unknown) date) cut unknown) (unknown) (no (unknown) (unknown) U Tricyclic (units (un known) date) Antidepress unknown) Positive H (unknown) (no (unknown) (unknown) U Tricyclic (units (un known) date) Antidepress unknown) (unknown) (no (unknown) (unknown) Ur Amphetamines (units (unknown) date) Screen Negative unknown) (unknown) (no (unknown) (unknown) Ur Amphetamines (units (unknown) date) Screen unknown) (unknown) (no (unknown) (unknown) Ur Barbiturates (units (unknown) date) Screen Positive H unknown) (unknown) (no (unknown) (unknown) Ur Barbiturates (units (unknown) date) Screen unknown) (unknown) (no (unknown) (unknown) Ur Culture (units (unk nown) date) Indicated? Specimen unknown) cultured (unknown) (no (unknown) (unknown) Ur Culture (units (unk nown) date) Indicated? unknown) (unknown) (no (unknown) (unknown) Ur Leukocyte (units (u nknown) date) Esterase 1+ H unknown) (unknown) (no (unknown) (unknown) Ur Leukocyte (units (u nknown) date) Esterase unknown) (unknown) (no (unknown) (unknown) Ur MDMA Scrn (units (u nknown) date) (Ecstasy) Negative unknown) (unknown) (no (unknown) (unknown) Ur MDMA Scrn (units (u nknown) date) (Ecstasy) unknown) (unknown) (no (unknown) (unknown) Ur Oxycodone (units (u nknown) date) Screen Negative unknown) (unknown) (no (unknown) (unknown) Ur Oxycodone (units (u nknown) date) Screen unknown) (unknown) (no (unknown) (unknown) Ur Phencyclidine (units (unknown) date) Scrn Negative unknown) (unknown) (no (unknown) (unknown) Ur Phencyclidine (units (unknown) date) Scrn unknown) (unknown) (no (unknown) (unknown) Ur Specific (units (un known) date) [place] 1.015 unknown) (unknown) (no (unknown) (unknown) Ur Specific (units (un known) date) [place] unknown) (unknown) (no (unknown) (unknown) Urine Appearance (units (unknown) date) Clear unknown) (unknown) (no (unknown) (unknown) Urine Appearance (units (unknown) date) unknown) (unknown) (no (unknown) (unknown) Urine Bacteria (units (unknown) date) Many (>30) H unknown) (unknown) (no (unknown) (unknown) Urine Bacteria (units (unknown) date) unknown) (unknown) (no (unknown) (unknown) Urine Bilirubin (units (unknown) date) Negative unknown) (unknown) (no (unknown) (unknown) Urine Bilirubin (units (unknown) date) unknown) (unknown) (no (unknown) (unknown) Urine Cocaine (units ( unknown) date) Screen Negative unknown) (unknown) (no (unknown) (unknown) Urine Cocaine (units ( unknown) date) Screen unknown) (unknown) (no (unknown) (unknown) Urine Color Yellow (units (unknown) date) unknown) (unknown) (no (unknown) (unknown) Urine Color (units (un known) date) unknown) (unknown) (no (unknown) (unknown) Urine Glucose (UA) (units (unknown) date) Negative unknown) (unknown) (no (unknown) (unknown) Urine Glucose (UA) (units (unknown) date) unknown) (unknown) (no (unknown) (unknown) Urine Ketones (units ( unknown) date) Negative unknown) (unknown) (no (unknown) (unknown) Urine Ketones (units ( unknown) date) unknown) (unknown) (no (unknown) (unknown) Urine Methadone (units (unknown) date) Screen Negative unknown) (unknown) (no (unknown) (unknown) Urine Methadone (units (unknown) date) Screen unknown) (unknown) (no (unknown) (unknown) Urine Nitrate (units ( unknown) date) Positive H unknown) (unknown) (no (unknown) (unknown) Urine Nitrate (units ( unknown) date) unknown) (unknown) (no (unknown) (unknown) Urine Occult Blood (units (unknown) date) Negative unknown) (unknown) (no (unknown) (unknown) Urine Occult Blood (units (unknown) date) unknown) (unknown) (no (unknown) (unknown) Urine (units (unknown) date) Test Negative unknown) (unknown) (no (unknown) (unknown) Urine (units (unknown) date) Test unknown) (unknown) (no (unknown) (unknown) Urine Protein (units ( unknown) date) Negative unknown) (unknown) (no (unknown) (unknown) Urine Protein (units ( unknown) date) unknown) (unknown) (no (unknown) (unknown) Urine RBC None (units (unknown) date) seen unknown) (unknown) (no (unknown) (unknown) Urine RBC (units (unkn own) date) unknown) (unknown) (no (unknown) (unknown) Urine Urobilinogen (units (unknown) date) 0.2 unknown) (unknown) (no (unknown) (unknown) Urine Urobilinogen (units (unknown) date) unknown) (unknown) (no (unknown) (unknown) Urine WBC (units (unkn own) date) 10-30/hpf H unknown) (unknown) (no (unknown) (unknown) Urine WBC (units (unkn own) date) unknown) (unknown) (no (unknown) (unknown) Urine pH 6.0 (units (u nknown) date) unknown) (unknown) (no (unknown) (unknown) Urine pH (units (unkno wn) date) unknown) (unknown) (no (unknown) (unknown) Visit Medications (units (unknown) date) (administered) unknown) (unknown) (no (unknown) (unknown) Vital Signs (units (un known) date) unknown) (unknown) (no (unknown) (unknown) WBC 5.1 (units (unkno wn) date) unknown) (unknown) (no (unknown) (unknown) WBC (units (unkno wn) date) unknown) (unknown) (no (unknown) (unknown) [Embedded Image (units (unknown) date) Not Available] unknown) (unknown) (no (unknown) (unknown) [Rx Confirmed (units ( unknown) date) 08/01/22] unknown) (unknown) (no (unknown) (unknown) alcohol intake: (units (unknown) date) current unknown) (unknown) (no (unknown) (unknown) bedside team (units (u nknown) date) unknown) (unknown) (no (unknown) (unknown) chlordiazepoxide (units (unknown) date) HCl 25 mg capsule unknown) See Rx Instructions .Route .COMPLEX #30 caps (unknown) (no (unknown) (unknown) communication: (units (unknown) date) Camera activated unknown) (unknown) (no (unknown) (unknown) current (units (unkno wn) date) occupational unknown) exposures/hazards: Yes (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 with Pandemic ) (unknown) (no (unknown) (unknown) dexmedeTOMIDine in (units (unknown) date) 0.9 % NaCL 400 mcg unknown) in 100 mls @ 2.699 mls/hr 08/08/22 22:48 (unknown) (no (unknown) (unknown) disulfiram 250 mg (units (unknown) date) tablet 250 mg PO unknown) DAILY #30 tabs 08/03/22 [Rx] (unknown) (no (unknown) (unknown) education level: (units (unknown) date) college unknown) (unknown) (no (unknown) (unknown) renee/zoroastrianism: (units (unknown) date) Buddhist unknown) (unknown) (no (unknown) (unknown) fluoxetine 10 mg (units (unknown) date) capsule 10 mg PO unknown) DAILY 07/13/22 [History Confirmed 08/01/22] (unknown) (no (unknown) (unknown) household members: (units (unknown) date) significant other unknown) (unknown) (no (unknown) (unknown) hydroxyzine HCl 50 (units (unknown) date) mg tablet 50 mg PO unknown) DAILY 07/13/22 [History Confirmed (unknown) (no (unknown) (unknown) marital status: (units (unknown) date) unknown) (unknown) (no (unknown) (unknown) multivitamin with (units (unknown) date) folic acid 400 mcg unknown) tablet (Tab-A-Kael) 1 tab PO DAILY #30 tabs (unknown) (no (unknown) (unknown) number of (units (unkn own) date) children: 1 unknown) (unknown) (no (unknown) (unknown) occupational (units (u nknown) date) status: employed unknown) (unknown) (no (unknown) (unknown) pantoprazole 40 mg (units (unknown) date) tablet,delayed unknown) release 40 mg PO 0700 #30 tabs 07/14/22 [Rx (unknown) (no (unknown) (unknown) quetiapine 300 mg (units (unknown) date) tablet 300 mg PO unknown) DAILY 07/13/22 [History Confirmed 08/01/22] (unknown) (no (unknown) (unknown) second hand (units (un known) date) exposure: No unknown) (growing up as a child - not currently) (unknown) (no (unknown) (unknown) special renee (units ( unknown) date) needs: No unknown) (unknown) (no (unknown) (unknown) substance use (units ( unknown) date) type: does not use unknown) (unknown) (no (unknown) (unknown) thiamine (units (unkno wn) date) mononitrate (vit unknown) B1) 100 mg tablet 100 mg PO DAILY #30 tabs 07/14/22 (unknown) (no (unknown) (unknown) ultimately started (units (unknown) date) on Precedex - this unknown) is currently @ 0.2 mcg/kg/hr. Result panel 2469 (unknown) (no (unknown) (unknown) (no value) (units (unk nown) date) unknown) (unknown) (no (unknown) (unknown) [phone] (units (unkn own) date) unknown) (unknown) (no (unknown) (unknown) 08/09/22 0532 (units ( unknown) date) unknown) (unknown) (no (unknown) (unknown) :: Patients MAP (units (unknown) date) in the high 50s, unknown) on low-dose Precedex, HR in the 50s. Has not (unknown) (no (unknown) (unknown) Age/Sex: 31 / F (units (unknown) date) unknown) (unknown) (no (unknown) (unknown) : 1990 (units (unknown) date) Acct:[id number] unknown) (unknown) (no (unknown) (unknown) Date of Service: (units (unknown) date) 08/08/22 unknown) (unknown) (no (unknown) (unknown) Date/Time (units (unkn own) date) unknown) (unknown) (no (unknown) (unknown) Intervention(s) (units (unknown) date) unknown) (unknown) (no (unknown) (unknown) [facility] (units (unknown) date) [address]) [place] [address] (unknown) (no (unknown) (unknown) Issue(s) (units (unkno wn) date) Addressed unknown) (unknown) (no (unknown) (unknown) Issue(s): (units (unkn own) date) Shock/hypotension unknown) (unknown) (no (unknown) (unknown) Levophed. (units (unkn own) date) Consider also unknown) antibiotic coverage given UA in the setting of (unknown) (no (unknown) (unknown) Patient: (units (unkno wn) date) Sarah Connors R unknown) MR#: M (unknown) (no (unknown) (unknown) Provider: (units (unkn own) date) Deepika Erickson unknown) (unknown) (no (unknown) (unknown) Signed (units (unkno wn) date) By:<Electronically unknown) signed by Deepika Erickson> (unknown) (no (unknown) (unknown) Teleintensivist (units (unknown) date) Intervention unknown) (unknown) (no (unknown) (unknown) Was camera (units (unk nown) date) activated?: Yes unknown) (unknown) (no (unknown) (unknown) hypotension. (units (u nknown) date) unknown) (unknown) (no (unknown) (unknown) received any IVF (units (unknown) date) since admission. unknown) Will give 1L LR bolus now, if BP remains low (unknown) (no (unknown) (unknown) will repeat (units (un known) date) bolus. If BP unknown) persistently soft following IVF bolus, will start Result panel 2470 (unknown) (no date) (unknown) (unknown) 0.0 md/dl (unkn own) (unknown) (no date) (unknown) (unknown) 0.0 mg/dl (unkn own) (unknown) (no date) (unknown) (unknown) 0.3 mg/dl (unkn own) (unknown) (no date) (unknown) (unknown) 0.3 mg/dl (unkn own) (unknown) (no date) (unknown) (unknown) 1.5 (units unknown) (unknown) (unknown) (no date) (unknown) (unknown) 2.4 g/dl (unkn own) (unknown) (no date) (unknown) (unknown) 288 iu/l (unkn own) (unknown) (no date) (unknown) (unknown) 3.6 g/dl (unkn own) (unknown) (no date) (unknown) (unknown) 51 iu/l (unkn own) (unknown) (no date) (unknown) (unknown) 59 u/l (unkn own) (unknown) (no date) (unknown) (unknown) 6.0 g/dl (unkn own) Result panel 2471 (unknown) (no (unknown) (unknown) (no value) (units (unk nown) date) unknown) (unknown) (no (unknown) (unknown) (past 8 hours): (units (unknown) date) unknown) (unknown) (no (unknown) (unknown) 0.2 MCG/KG/HR (units ( unknown) date) unknown) (unknown) (no (unknown) (unknown) [phone] (units (unkn own) date) unknown) (unknown) (no (unknown) (unknown) 01:00 08/09/22 (units (unknown) date) unknown) (unknown) (no (unknown) (unknown) 01:06 08/09/22 (units (unknown) date) unknown) (unknown) (no (unknown) (unknown) 01:06 (units (unkno wn) date) unknown) (unknown) (no (unknown) (unknown) 01:29 08/09/22 (units (unknown) date) unknown) (unknown) (no (unknown) (unknown) 01:29 (units (unkno wn) date) unknown) (unknown) (no (unknown) (unknown) 02:00 08/09/22 (units (unknown) date) unknown) (unknown) (no (unknown) (unknown) 07/14/22 [Rx (units (u nknown) date) Confirmed 08/01/22] unknown) (unknown) (no (unknown) (unknown) 08/01/22] (units (unkn own) date) unknown) (unknown) (no (unknown) (unknown) 08/03/22 [Rx] (units ( unknown) date) unknown) (unknown) (no (unknown) (unknown) 08/08/22 08/08/22 (units (unknown) date) 08/08/22 unknown) (unknown) (no (unknown) (unknown) 08/08/22 08/08/22 (units (unknown) date) 08/09/22 unknown) (unknown) (no (unknown) (unknown) 08/09/22 08/09/22 (units (unknown) date) 08/09/22 unknown) (unknown) (no (unknown) (unknown) 08/09/22 08/09/22 (units (unknown) date) unknown) (unknown) (no (unknown) (unknown) 08/09/22 04:16 (units (unknown) date) unknown) (unknown) (no (unknown) (unknown) 08/09/22 05:06 (units (unknown) date) unknown) (unknown) (no (unknown) (unknown) 08/09/22 (units (unkno wn) date) unknown) (unknown) (no (unknown) (unknown) 03:00 08/09/22 (units (unknown) date) unknown) (unknown) (no (unknown) (unknown) 03:00 (units (unkno wn) date) unknown) (unknown) (no (unknown) (unknown) 03:02 08/09/22 (units (unknown) date) unknown) (unknown) (no (unknown) (unknown) 03:02 (units (unkno wn) date) unknown) (unknown) (no (unknown) (unknown) 04:00 08/09/22 (units (unknown) date) unknown) (unknown) (no (unknown) (unknown) 04:16 04:16 04:30 (units (unknown) date) unknown) (unknown) (no (unknown) (unknown) 04:20 08/09/22 (units (unknown) date) unknown) (unknown) (no (unknown) (unknown) 04:20 (units (unkno wn) date) unknown) (unknown) (no (unknown) (unknown) 04:30 04:30 (units (un known) date) unknown) (unknown) (no (unknown) (unknown) 05:00 08/09/22 (units (unknown) date) unknown) (unknown) (no (unknown) (unknown) 05:00 (units (unkno wn) date) unknown) (unknown) (no (unknown) (unknown) 05:02 08/09/22 (units (unknown) date) unknown) (unknown) (no (unknown) (unknown) 05:20 08/09/22 (units (unknown) date) unknown) (unknown) (no (unknown) (unknown) 05:20 (units (unkno wn) date) unknown) (unknown) (no (unknown) (unknown) 05:34 08/09/22 (units (unknown) date) unknown) (unknown) (no (unknown) (unknown) 05:34 (units (unkno wn) date) unknown) (unknown) (no (unknown) (unknown) 06:00 08/09/22 (units (unknown) date) unknown) (unknown) (no (unknown) (unknown) 06:24 08/09/22 (units (unknown) date) unknown) (unknown) (no (unknown) (unknown) 06:24 (units (unkno wn) date) unknown) (unknown) (no (unknown) (unknown) 07:00 08/09/22 (units (unknown) date) unknown) (unknown) (no (unknown) (unknown) 07:00 (units (unkno wn) date) unknown) (unknown) (no (unknown) (unknown) 07:35 (units (unkno wn) date) unknown) (unknown) (no (unknown) (unknown) 21:00 21:00 21:00 (units (unknown) date) unknown) (unknown) (no (unknown) (unknown) 21:00 22:30 04:16 (units (unknown) date) unknown) (unknown) (no (unknown) (unknown) ALT 51 H (units (unkno wn) date) unknown) (unknown) (no (unknown) (unknown) ALT 64 H (units (unkno wn) date) unknown) (unknown) (no (unknown) (unknown) ALT (units (unkno wn) date) unknown) (unknown) (no (unknown) (unknown) AST 288 H (units (unkn own) date) unknown) (unknown) (no (unknown) (unknown) AST 424 H (units (unkn own) date) unknown) (unknown) (no (unknown) (unknown) AST (units (unkno wn) date) unknown) (unknown) (no (unknown) (unknown) Age/Sex: 31 / F (units (unknown) date) unknown) (unknown) (no (unknown) (unknown) Albumin 3.6 (units (un known) date) unknown) (unknown) (no (unknown) (unknown) Albumin 4.4 (units (un known) date) unknown) (unknown) (no (unknown) (unknown) Albumin (units (unkno wn) date) unknown) (unknown) (no (unknown) (unknown) Albumin/Globulin (units (unknown) date) Ratio 1.3 unknown) (unknown) (no (unknown) (unknown) Albumin/Globulin (units (unknown) date) Ratio 1.5 unknown) (unknown) (no (unknown) (unknown) Albumin/Globulin (units (unknown) date) Ratio unknown) (unknown) (no (unknown) (unknown) Alcohol Withdrawal (units (unknown) date) unknown) (unknown) (no (unknown) (unknown) Alkaline (units (unkno wn) date) Phosphatase 59 unknown) (unknown) (no (unknown) (unknown) Alkaline (units (unkno wn) date) Phosphatase 71 unknown) (unknown) (no (unknown) (unknown) Alkaline (units (unkno wn) date) Phosphatase unknown) (unknown) (no (unknown) (unknown) BUN 7 (units (unkno wn) date) unknown) (unknown) (no (unknown) (unknown) BUN 8 (units (unkno wn) date) unknown) (unknown) (no (unknown) (unknown) BUN (units (unkno wn) date) unknown) (unknown) (no (unknown) (unknown) BUN/Creatinine (units (unknown) date) Ratio 8.9 unknown) (unknown) (no (unknown) (unknown) BUN/Creatinine (units (unknown) date) Ratio 9.2 unknown) (unknown) (no (unknown) (unknown) BUN/Creatinine (units (unknown) date) Ratio unknown) (unknown) (no (unknown) (unknown) Baso # (Auto) 100 (units (unknown) date) unknown) (unknown) (no (unknown) (unknown) Baso # (Auto) (units ( unknown) date) unknown) (unknown) (no (unknown) (unknown) Baso % (Auto) 1.9 (units (unknown) date) unknown) (unknown) (no (unknown) (unknown) Baso % (Auto) 2.5 (units (unknown) date) H unknown) (unknown) (no (unknown) (unknown) Baso % (Auto) (units ( unknown) date) unknown) (unknown) (no (unknown) (unknown) Blood Pressure (units (unknown) date) 73/40 L 75/39 L unknown) (unknown) (no (unknown) (unknown) Blood Pressure (units (unknown) date) 74/40 L unknown) (unknown) (no (unknown) (unknown) Blood Pressure (units (unknown) date) 77/42 L 80/45 L unknown) (unknown) (no (unknown) (unknown) Blood Pressure (units (unknown) date) 77/47 L unknown) (unknown) (no (unknown) (unknown) Blood Pressure (units (unknown) date) 78/43 L unknown) (unknown) (no (unknown) (unknown) Blood Pressure (units (unknown) date) 78/48 L unknown) (unknown) (no (unknown) (unknown) Blood Pressure (units (unknown) date) 80/44 L 79/43 L unknown) (unknown) (no (unknown) (unknown) Blood Pressure (units (unknown) date) 82/44 L 71/42 L unknown) (unknown) (no (unknown) (unknown) Blood Pressure (units (unknown) date) 86/53 L 83/50 L unknown) (unknown) (no (unknown) (unknown) CIWAPRN PRN (units (un known) date) Administration unknown) (unknown) (no (unknown) (unknown) Calcium 7.7 L (units ( unknown) date) unknown) (unknown) (no (unknown) (unknown) Calcium 8.4 (units (un known) date) unknown) (unknown) (no (unknown) (unknown) Calcium (units (unkno wn) date) unknown) (unknown) (no (unknown) (unknown) Carbon Dioxide 30 (units (unknown) date) unknown) (unknown) (no (unknown) (unknown) Carbon Dioxide 33 (units (unknown) date) H unknown) (unknown) (no (unknown) (unknown) Carbon Dioxide (units (unknown) date) unknown) (unknown) (no (unknown) (unknown) Ceftriaxone Sodium (units (unknown) date) 1,000 mg/ 100 mls @ unknown) 200 mls/hr 08/09/22 07:00 08/09/22 (unknown) (no (unknown) (unknown) Chlordiazepoxide (units (unknown) date) 25 Mg Capsule PO 50 unknown) mg (unknown) (no (unknown) (unknown) Chlordiazepoxide (units (unknown) date) HCl 50 mg 08/09/22 unknown) 00:00 08/09/22 06:12 (unknown) (no (unknown) (unknown) Chloride 104 (units (u nknown) date) unknown) (unknown) (no (unknown) (unknown) Chloride 107 (units (u nknown) date) unknown) (unknown) (no (unknown) (unknown) Chloride (units (unkno wn) date) unknown) (unknown) (no (unknown) (unknown) Confirmed (units (unkn own) date) 08/01/22] unknown) (unknown) (no (unknown) (unknown) Conjugated (units (unk nown) date) Bilirubin 0.0 unknown) (unknown) (no (unknown) (unknown) Conjugated (units (unk nown) date) Bilirubin unknown) (unknown) (no (unknown) (unknown) Consent obtained (units (unknown) date) for unknown) 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: Yes (unknown) (no (unknown) (unknown) Creatinine 0.76 (units (unknown) date) unknown) (unknown) (no (unknown) (unknown) Creatinine 0.90 (units (unknown) date) unknown) (unknown) (no (unknown) (unknown) Creatinine (units (unk nown) date) unknown) (unknown) (no (unknown) (unknown) Current (units (unkno wn) date) Medications unknown) (unknown) (no (unknown) (unknown) : 1990 (units (unknown) date) Acct:[id number] unknown) (unknown) (no (unknown) (unknown) Date of Service: (units (unknown) date) 08/08/22 unknown) (unknown) (no (unknown) (unknown) Deep Vein (units (unkn own) date) Thrombosis/Pulmonar unknown) y Embolism Present on Admission: No (unknown) (no (unknown) (unknown) Eos # (Auto) 0 (units (unknown) date) unknown) (unknown) (no (unknown) (unknown) Eos # (Auto) (units (u nknown) date) unknown) (unknown) (no (unknown) (unknown) Eos % (Auto) 0.7 L (units (unknown) date) unknown) (unknown) (no (unknown) (unknown) Eos % (Auto) 0.8 L (units (unknown) date) unknown) (unknown) (no (unknown) (unknown) Eos % (Auto) (units (u nknown) date) unknown) (unknown) (no (unknown) (unknown) Estimated GFR > 60 (units (unknown) date) unknown) (unknown) (no (unknown) (unknown) Estimated GFR (units ( unknown) date) unknown) (unknown) (no (unknown) (unknown) Ethyl Alcohol 393 (units (unknown) date) H unknown) (unknown) (no (unknown) (unknown) Ethyl Alcohol (units ( unknown) date) unknown) (unknown) (no (unknown) (unknown) Exam Narrative: (units (unknown) date) unknown) (unknown) (no (unknown) (unknown) Exam (units (unkno wn) date) unknown) (unknown) (no (unknown) (unknown) Generic Name Dose (units (unknown) date) Route Start Last unknown) Admin (unknown) (no (unknown) (unknown) Globulin 2.4 (units (u nknown) date) unknown) (unknown) (no (unknown) (unknown) Globulin 3.3 (units (u nknown) date) unknown) (unknown) (no (unknown) (unknown) Globulin (units (unkno wn) date) unknown) (unknown) (no (unknown) (unknown) Glucose 84 (units (unk nown) date) unknown) (unknown) (no (unknown) (unknown) Glucose 92 (units (unk nown) date) unknown) (unknown) (no (unknown) (unknown) Glucose (units (unkno wn) date) unknown) (unknown) (no (unknown) (unknown) Hct 31.4 L (units (unk nown) date) unknown) (unknown) (no (unknown) (unknown) Hct 37.0 (units (unkno wn) date) unknown) (unknown) (no (unknown) (unknown) Hct (units (unkno wn) date) unknown) (unknown) (no (unknown) (unknown) Hgb 10.1 L (units (unk nown) date) unknown) (unknown) (no (unknown) (unknown) Hgb 11.9 L (units (unk nown) date) unknown) (unknown) (no (unknown) (unknown) Hgb (units (unkno wn) date) unknown) (unknown) (no (unknown) (unknown) Home Medications (units (unknown) date) unknown) (unknown) (no (unknown) (unknown) IF CAMERA (units (unkn own) date) ACTIVATED, patient unknown) seen via real-time interactive audiovisual (unknown) (no (unknown) (unknown) Interval history: (units (unknown) date) unknown) (unknown) (no (unknown) (unknown) [facility] (units (unknown) date) [address] unknown) [place] [address] (unknown) (no (unknown) (unknown) LR this am after (units (unknown) date) BP 80's/40's unknown) (unknown) (no (unknown) (unknown) Laboratory Results (units (unknown) date) - last 24 hr unknown) (unknown) (no (unknown) (unknown) Labs (units (unkno wn) date) unknown) (unknown) (no (unknown) (unknown) Labs: (units (unkno wn) date) unknown) (unknown) (no (unknown) (unknown) Lipase 408 H (units (u nknown) date) unknown) (unknown) (no (unknown) (unknown) Lipase (units (unkno wn) date) unknown) (unknown) (no (unknown) (unknown) Lorazepam 0 mg (units (unknown) date) 08/08/22 22:48 unknown) 08/08/22 23:00 (unknown) (no (unknown) (unknown) Lorazepam 2 Mg/Ml (units (unknown) date) Inj IV 2 mg unknown) (unknown) (no (unknown) (unknown) Lymph # (Auto) (units (unknown) date) 2600 unknown) (unknown) (no (unknown) (unknown) Lymph # (Auto) (units (unknown) date) 2800 unknown) (unknown) (no (unknown) (unknown) Lymph # (Auto) (units (unknown) date) unknown) (unknown) (no (unknown) (unknown) Lymph % (Auto) (units (unknown) date) 51.5 H unknown) (unknown) (no (unknown) (unknown) Lymph % (Auto) (units (unknown) date) 54.2 H unknown) (unknown) (no (unknown) (unknown) Lymph % (Auto) (units (unknown) date) unknown) (unknown) (no (unknown) (unknown) MCH 25.4 L (units (unk nown) date) unknown) (unknown) (no (unknown) (unknown) MCH 25.7 L (units (unk nown) date) unknown) (unknown) (no (unknown) (unknown) MCH (units (unkno wn) date) unknown) (unknown) (no (unknown) (unknown) MCHC 32.1 (units (unkn own) date) unknown) (unknown) (no (unknown) (unknown) MCHC 32.2 (units (unkn own) date) unknown) (unknown) (no (unknown) (unknown) MCHC (units (unkno wn) date) unknown) (unknown) (no (unknown) (unknown) MCV 79.0 L (units (unk nown) date) unknown) (unknown) (no (unknown) (unknown) MCV 80.2 (units (unkno wn) date) unknown) (unknown) (no (unknown) (unknown) MCV (units (unkno wn) date) unknown) (unknown) (no (unknown) (unknown) Magnesium 2.2 (units ( unknown) date) unknown) (unknown) (no (unknown) (unknown) Magnesium (units (unkn own) date) unknown) (unknown) (no (unknown) (unknown) Medications: (units (u nknown) date) unknown) (unknown) (no (unknown) (unknown) Yates # (Auto) 300 (units (unknown) date) unknown) (unknown) (no (unknown) (unknown) Yates # (Auto) 400 (units (unknown) date) unknown) (unknown) (no (unknown) (unknown) Yates # (Auto) (units ( unknown) date) unknown) (unknown) (no (unknown) (unknown) Yates % (Auto) 6.5 (units (unknown) date) unknown) (unknown) (no (unknown) (unknown) Yates % (Auto) 8.6 (units (unknown) date) unknown) (unknown) (no (unknown) (unknown) Yates % (Auto) (units ( unknown) date) unknown) (unknown) (no (unknown) (unknown) Narrative (units (unkn own) date) unknown) (unknown) (no (unknown) (unknown) Nausea And (units (unk nown) date) Vomiting unknown) (unknown) (no (unknown) (unknown) Neut # (Auto) 1900 (units (unknown) date) unknown) (unknown) (no (unknown) (unknown) Neut # (Auto) (units ( unknown) date) unknown) (unknown) (no (unknown) (unknown) Neut % (Auto) 36.6 (units (unknown) date) L unknown) (unknown) (no (unknown) (unknown) Neut % (Auto) 36.7 (units (unknown) date) L unknown) (unknown) (no (unknown) (unknown) Neut % (Auto) (units ( unknown) date) unknown) (unknown) (no (unknown) (unknown) No distress, on (units (unknown) date) room air unknown) (unknown) (no (unknown) (unknown) Objective (units (unkn own) date) unknown) (unknown) (no (unknown) (unknown) Ondansetron 4 Mg/2 (units (unknown) date) Ml Inj IV 4 mg unknown) (unknown) (no (unknown) (unknown) Ondansetron HCl 4 (units (unknown) date) mg 08/08/22 22:48 unknown) 08/08/22 23:09 (unknown) (no (unknown) (unknown) Other (units (unkno wn) date) participants/roles: unknown) Bedside RN (unknown) (no (unknown) (unknown) Oxygen Delivery (units (unknown) date) Method Room Air unknown) (unknown) (no (unknown) (unknown) Patient Location: (units (unknown) date) ICU unknown) (unknown) (no (unknown) (unknown) Patient admitted (units (unknown) date) for alcohol unknown) withdrawal. Precedex gtt turned off at 5 am- She (unknown) (no (unknown) (unknown) Patient: (units (unkno wn) date) Sarah Connors unknown) MR#: M (unknown) (no (unknown) (unknown) Plt Count 332 (units ( unknown) date) unknown) (unknown) (no (unknown) (unknown) Plt Count 396 (units ( unknown) date) unknown) (unknown) (no (unknown) (unknown) Plt Count (units (unkn own) date) unknown) (unknown) (no (unknown) (unknown) Potassium 3.5 (units ( unknown) date) unknown) (unknown) (no (unknown) (unknown) Potassium 3.6 (units ( unknown) date) unknown) (unknown) (no (unknown) (unknown) Potassium (units (unkn own) date) unknown) (unknown) (no (unknown) (unknown) Precedex IV 0 (units ( unknown) date) mcg/kg/hr unknown) (unknown) (no (unknown) (unknown) Protocol (units (unkno wn) date) unknown) (unknown) (no (unknown) (unknown) Provider location (units (unknown) date) (State): [place] unknown) (unknown) (no (unknown) (unknown) Provider: (units (unkn own) date) Uyen Prince MD unknown) (unknown) (no (unknown) (unknown) Pulse Oximetry 95 (units (unknown) date) 95 unknown) (unknown) (no (unknown) (unknown) Pulse Oximetry 95 (units (unknown) date) 96 unknown) (unknown) (no (unknown) (unknown) Pulse Oximetry 95 (units (unknown) date) unknown) (unknown) (no (unknown) (unknown) Pulse Oximetry 96 (units (unknown) date) unknown) (unknown) (no (unknown) (unknown) Pulse Oximetry 97 (units (unknown) date) 96 unknown) (unknown) (no (unknown) (unknown) Pulse Oximetry 97 (units (unknown) date) unknown) (unknown) (no (unknown) (unknown) Pulse Oximetry 99 (units (unknown) date) 99 unknown) (unknown) (no (unknown) (unknown) Pulse Rate 69 72 (units (unknown) date) unknown) (unknown) (no (unknown) (unknown) Pulse Rate 71 (units ( unknown) date) unknown) (unknown) (no (unknown) (unknown) Pulse Rate 72 (units ( unknown) date) unknown) (unknown) (no (unknown) (unknown) Pulse Rate 75 69 (units (unknown) date) unknown) (unknown) (no (unknown) (unknown) Pulse Rate 75 75 (units (unknown) date) unknown) (unknown) (no (unknown) (unknown) Pulse Rate 75 78 (units (unknown) date) unknown) (unknown) (no (unknown) (unknown) Pulse Rate 75 (units ( unknown) date) unknown) (unknown) (no (unknown) (unknown) Pulse Rate 76 71 (units (unknown) date) unknown) (unknown) (no (unknown) (unknown) Pulse Rate 79 76 (units (unknown) date) unknown) (unknown) (no (unknown) (unknown) Q24H SANDY (units (unkno wn) date) Administration unknown) (unknown) (no (unknown) (unknown) Q6HR SANDY (units (unkno wn) date) Administration unknown) (unknown) (no (unknown) (unknown) Q8HR PRN (units (unkno wn) date) Administration unknown) (unknown) (no (unknown) (unknown) Quality TeleICU (units (unknown) date) unknown) (unknown) (no (unknown) (unknown) RBC 3.98 L (units (unk nown) date) unknown) (unknown) (no (unknown) (unknown) RBC 4.61 (units (unkno wn) date) unknown) (unknown) (no (unknown) (unknown) RBC (units (unkno wn) date) unknown) (unknown) (no (unknown) (unknown) RDW 19.5 H (units (unk nown) date) unknown) (unknown) (no (unknown) (unknown) RDW 19.7 H (units (unk nown) date) unknown) (unknown) (no (unknown) (unknown) RDW (units (unkno wn) date) unknown) (unknown) (no (unknown) (unknown) Respiratory Rate (units (unknown) date) 14 16 unknown) (unknown) (no (unknown) (unknown) Respiratory Rate (units (unknown) date) 16 16 unknown) (unknown) (no (unknown) (unknown) Respiratory Rate (units (unknown) date) 18 19 unknown) (unknown) (no (unknown) (unknown) Respiratory Rate (units (unknown) date) 18 unknown) (unknown) (no (unknown) (unknown) Respiratory Rate (units (unknown) date) 19 unknown) (unknown) (no (unknown) (unknown) Respiratory Rate (units (unknown) date) 21 20 unknown) (unknown) (no (unknown) (unknown) Respiratory Rate (units (unknown) date) 27 H unknown) (unknown) (no (unknown) (unknown) Respiratory Rate (units (unknown) date) 34 H 23 unknown) (unknown) (no (unknown) (unknown) Respiratory Rate (units (unknown) date) 37 H 16 unknown) (unknown) (no (unknown) (unknown) Respiratory Rate (units (unknown) date) 37 H unknown) (unknown) (no (unknown) (unknown) SARS-CoV-2 (PCR) (units (unknown) date) Negative unknown) (unknown) (no (unknown) (unknown) SARS-CoV-2 (PCR) (units (unknown) date) unknown) (unknown) (no (unknown) (unknown) She remains mildly (units (unknown) date) hypotensive and unknown) urine is estefany in color, she is being treated (unknown) (no (unknown) (unknown) Signed By: (units (unk nown) date) unknown) (unknown) (no (unknown) (unknown) Sodium 145 (units (unk nown) date) unknown) (unknown) (no (unknown) (unknown) Sodium 148 H D (units (unknown) date) unknown) (unknown) (no (unknown) (unknown) Sodium Chloride IV (units (unknown) date) 08/12/22 06:59 200 unknown) mls/hr (unknown) (no (unknown) (unknown) Sodium (units (unkno wn) date) unknown) (unknown) (no (unknown) (unknown) Subjective (units (unk nown) date) unknown) (unknown) (no (unknown) (unknown) TITRATE SANDY 0 (units ( unknown) date) mls/hr unknown) (unknown) (no (unknown) (unknown) Teleintensivist (units (unknown) date) Progress Note unknown) (unknown) (no (unknown) (unknown) Temperature 98.6 F (units (unknown) date) unknown) (unknown) (no (unknown) (unknown) Temperature (units (un known) date) unknown) (unknown) (no (unknown) (unknown) Titration (units (unkn own) date) unknown) (unknown) (no (unknown) (unknown) Total Bilirubin (units (unknown) date) 0.3 unknown) (unknown) (no (unknown) (unknown) Total Bilirubin (units (unknown) date) 0.4 unknown) (unknown) (no (unknown) (unknown) Total Bilirubin (units (unknown) date) unknown) (unknown) (no (unknown) (unknown) Total Protein 6.0 (units (unknown) date) L unknown) (unknown) (no (unknown) (unknown) Total Protein 7.7 (units (unknown) date) unknown) (unknown) (no (unknown) (unknown) Total Protein (units ( unknown) date) unknown) (unknown) (no (unknown) (unknown) Trade Name Freq (units (unknown) date) PRN Reason Stop unknown) Dose Admin (unknown) (no (unknown) (unknown) U Benzodiazepines (units (unknown) date) Scrn Positive H unknown) (unknown) (no (unknown) (unknown) U Benzodiazepines (units (unknown) date) Scrn unknown) (unknown) (no (unknown) (unknown) U Marijuana (THC) (units (unknown) date) Screen Negative unknown) (unknown) (no (unknown) (unknown) U Marijuana (THC) (units (unknown) date) Screen unknown) (unknown) (no (unknown) (unknown) U Methamphetamines (units (unknown) date) Scrn Negative unknown) (unknown) (no (unknown) (unknown) U Methamphetamines (units (unknown) date) Scrn unknown) (unknown) (no (unknown) (unknown) U Opiates 300ng/mL (units (unknown) date) cut Negative unknown) (unknown) (no (unknown) (unknown) U Opiates 300ng/mL (units (unknown) date) cut unknown) (unknown) (no (unknown) (unknown) U Tricyclic (units (un known) date) Antidepress unknown) Positive H (unknown) (no (unknown) (unknown) U Tricyclic (units (un known) date) Antidepress unknown) (unknown) (no (unknown) (unknown) Unconjugated (units (u nknown) date) Bilirubin 0.0 unknown) (unknown) (no (unknown) (unknown) Unconjugated (units (u nknown) date) Bilirubin unknown) (unknown) (no (unknown) (unknown) Ur Amphetamines (units (unknown) date) Screen Negative unknown) (unknown) (no (unknown) (unknown) Ur Amphetamines (units (unknown) date) Screen unknown) (unknown) (no (unknown) (unknown) Ur Barbiturates (units (unknown) date) Screen Positive H unknown) (unknown) (no (unknown) (unknown) Ur Barbiturates (units (unknown) date) Screen unknown) (unknown) (no (unknown) (unknown) Ur Culture (units (unk nown) date) Indicated? Specimen unknown) cultured (unknown) (no (unknown) (unknown) Ur Culture (units (unk nown) date) Indicated? unknown) (unknown) (no (unknown) (unknown) Ur Leukocyte (units (u nknown) date) Esterase 1+ H unknown) (unknown) (no (unknown) (unknown) Ur Leukocyte (units (u nknown) date) Esterase unknown) (unknown) (no (unknown) (unknown) Ur MDMA Scrn (units (u nknown) date) (Ecstasy) Negative unknown) (unknown) (no (unknown) (unknown) Ur MDMA Scrn (units (u nknown) date) (Ecstasy) unknown) (unknown) (no (unknown) (unknown) Ur Oxycodone (units (u nknown) date) Screen Negative unknown) (unknown) (no (unknown) (unknown) Ur Oxycodone (units (u nknown) date) Screen unknown) (unknown) (no (unknown) (unknown) Ur Phencyclidine (units (unknown) date) Scrn Negative unknown) (unknown) (no (unknown) (unknown) Ur Phencyclidine (units (unknown) date) Scrn unknown) (unknown) (no (unknown) (unknown) Ur Specific (units (un known) date) [place] 1.015 unknown) (unknown) (no (unknown) (unknown) Ur Specific (units (un known) date) [place] unknown) (unknown) (no (unknown) (unknown) Urine Appearance (units (unknown) date) Clear unknown) (unknown) (no (unknown) (unknown) Urine Appearance (units (unknown) date) unknown) (unknown) (no (unknown) (unknown) Urine Bacteria (units (unknown) date) Many (>30) H unknown) (unknown) (no (unknown) (unknown) Urine Bacteria (units (unknown) date) unknown) (unknown) (no (unknown) (unknown) Urine Bilirubin (units (unknown) date) Negative unknown) (unknown) (no (unknown) (unknown) Urine Bilirubin (units (unknown) date) unknown) (unknown) (no (unknown) (unknown) Urine Cocaine (units ( unknown) date) Screen Negative unknown) (unknown) (no (unknown) (unknown) Urine Cocaine (units ( unknown) date) Screen unknown) (unknown) (no (unknown) (unknown) Urine Color Yellow (units (unknown) date) unknown) (unknown) (no (unknown) (unknown) Urine Color (units (un known) date) unknown) (unknown) (no (unknown) (unknown) Urine Glucose (UA) (units (unknown) date) Negative unknown) (unknown) (no (unknown) (unknown) Urine Glucose (UA) (units (unknown) date) unknown) (unknown) (no (unknown) (unknown) Urine Ketones (units ( unknown) date) Negative unknown) (unknown) (no (unknown) (unknown) Urine Ketones (units ( unknown) date) unknown) (unknown) (no (unknown) (unknown) Urine Methadone (units (unknown) date) Screen Negative unknown) (unknown) (no (unknown) (unknown) Urine Methadone (units (unknown) date) Screen unknown) (unknown) (no (unknown) (unknown) Urine Nitrate (units ( unknown) date) Positive H unknown) (unknown) (no (unknown) (unknown) Urine Nitrate (units ( unknown) date) unknown) (unknown) (no (unknown) (unknown) Urine Occult Blood (units (unknown) date) Negative unknown) (unknown) (no (unknown) (unknown) Urine Occult Blood (units (unknown) date) unknown) (unknown) (no (unknown) (unknown) Urine (units (unknown) date) Test Negative unknown) (unknown) (no (unknown) (unknown) Urine (units (unknown) date) Test unknown) (unknown) (no (unknown) (unknown) Urine Protein (units ( unknown) date) Negative unknown) (unknown) (no (unknown) (unknown) Urine Protein (units ( unknown) date) unknown) (unknown) (no (unknown) (unknown) Urine RBC None (units (unknown) date) seen unknown) (unknown) (no (unknown) (unknown) Urine RBC (units (unkn own) date) unknown) (unknown) (no (unknown) (unknown) Urine Urobilinogen (units (unknown) date) 0.2 unknown) (unknown) (no (unknown) (unknown) Urine Urobilinogen (units (unknown) date) unknown) (unknown) (no (unknown) (unknown) Urine WBC (units (unkn own) date) 10-30/hpf H unknown) (unknown) (no (unknown) (unknown) Urine WBC (units (unkn own) date) unknown) (unknown) (no (unknown) (unknown) Urine pH 6.0 (units (u nknown) date) unknown) (unknown) (no (unknown) (unknown) Urine pH (units (unkno wn) date) unknown) (unknown) (no (unknown) (unknown) VTE (units (unkno wn) date) unknown) (unknown) (no (unknown) (unknown) Visit Medications (units (unknown) date) (administered) unknown) (unknown) (no (unknown) (unknown) Vital Signs (units (un known) date) unknown) (unknown) (no (unknown) (unknown) WBC 5.1 (units (unkno wn) date) unknown) (unknown) (no (unknown) (unknown) WBC 5.2 (units (unkno wn) date) unknown) (unknown) (no (unknown) (unknown) WBC (units (unkno wn) date) unknown) (unknown) (no (unknown) (unknown) [Embedded Image (units (unknown) date) Not Available] unknown) (unknown) (no (unknown) (unknown) [Rx Confirmed (units ( unknown) date) 08/01/22] unknown) (unknown) (no (unknown) (unknown) chlordiazepoxide (units (unknown) date) HCl 25 mg capsule unknown) See Rx Instructions .Route .COMPLEX #30 caps (unknown) (no (unknown) (unknown) communication: (units (unknown) date) Camera activated unknown) (unknown) (no (unknown) (unknown) dexmedeTOMIDine in (units (unknown) date) 0.9 % NaCL 400 mcg unknown) in 100 mls @ 2.699 mls/hr 08/08/22 22:48 (unknown) (no (unknown) (unknown) disulfiram 250 mg (units (unknown) date) tablet 250 mg PO unknown) DAILY #30 tabs 08/03/22 [Rx] (unknown) (no (unknown) (unknown) fluoxetine 10 mg (units (unknown) date) capsule 10 mg PO unknown) DAILY 07/13/22 [History Confirmed 08/01/22] (unknown) (no (unknown) (unknown) for UTI- Initially (units (unknown) date) recieved 1 L LR unknown) bolus and BP improved. Ordered another 1 L (unknown) (no (unknown) (unknown) hydroxyzine HCl 50 (units (unknown) date) mg tablet 50 mg PO unknown) DAILY 07/13/22 [History Confirmed (unknown) (no (unknown) (unknown) multivitamin with (units (unknown) date) folic acid 400 mcg unknown) tablet (Tab-A-Kael) 1 tab PO DAILY #30 tabs (unknown) (no (unknown) (unknown) pantoprazole 40 mg (units (unknown) date) tablet,delayed unknown) release 40 mg PO 0700 #30 tabs 07/14/22 [Rx (unknown) (no (unknown) (unknown) quetiapine 300 mg (units (unknown) date) tablet 300 mg PO unknown) DAILY 07/13/22 [History Confirmed 08/01/22] (unknown) (no (unknown) (unknown) thiamine (units (unkno wn) date) mononitrate (vit unknown) B1) 100 mg tablet 100 mg PO DAILY #30 tabs 07/14/22 (unknown) (no (unknown) (unknown) was able to take (units (unknown) date) her PO librium unknown) Result panel [id number] (unknown) (no (unknown) (unknown) (no value) (units (unk nown) date) unknown) (unknown) (no (unknown) (unknown) (past 8 hours): (units (unknown) date) unknown) (unknown) (no (unknown) (unknown) -SW consult (units (un known) date) unknown) (unknown) (no (unknown) (unknown) -continue PPI (units ( unknown) date) unknown) (unknown) (no (unknown) (unknown) -continue ciwa (units (unknown) date) protocol, with unknown) ativan, start librium 50mg q6, ordered precedex (unknown) (no (unknown) (unknown) -continue prozac (units (unknown) date) unknown) (unknown) (no (unknown) (unknown) -continue to trend (units (unknown) date) unknown) (unknown) (no (unknown) (unknown) -each time she has (units (unknown) date) refused rehab unknown) (unknown) (no (unknown) (unknown) -follow up urine (units (unknown) date) cultures unknown) (unknown) (no (unknown) (unknown) -likely secondary (units (unknown) date) to inadequate PO unknown) intake due to alcoholism (unknown) (no (unknown) (unknown) -multiple (units (unkn own) date) admissions and unknown) hospital visits for alcohol withdrawal within the last (unknown) (no (unknown) (unknown) -ordered for high (units (unknown) date) dose thiamine for unknown) prevention/treatmen t of wernicke's (unknown) (no (unknown) (unknown) -per ED she is (units (unknown) date) requesting detox unknown) after drinking heavily after discharge (unknown) (no (unknown) (unknown) -per ED she was (units (unknown) date) hallucinating and unknown) agitated on arrival, received phenobarbital (unknown) (no (unknown) (unknown) -she was just (units ( unknown) date) discharged 5 days unknown) ago, refusing rehab (unknown) (no (unknown) (unknown) -suspect secondary (units (unknown) date) to alcohol unknown) withdrawal and phenobarbital and treat as above (unknown) (no (unknown) (unknown) -trend daily (units (u nknown) date) unknown) (unknown) (no (unknown) (unknown) -unable to discuss (units (unknown) date) with patient on unknown) admission as she is sedated (unknown) (no (unknown) (unknown) [id number] (units (unkn own) date) unknown) (unknown) (no (unknown) (unknown) 01:00 08/09/22 (units (unknown) date) unknown) (unknown) (no (unknown) (unknown) 01:06 08/09/22 (units (unknown) date) unknown) (unknown) (no (unknown) (unknown) 01:06 (units (unkno wn) date) unknown) (unknown) (no (unknown) (unknown) 01:29 08/09/22 (units (unknown) date) unknown) (unknown) (no (unknown) (unknown) 01:29 (units (unkno wn) date) unknown) (unknown) (no (unknown) (unknown) 02:00 08/09/22 (units (unknown) date) unknown) (unknown) (no (unknown) (unknown) 08/08/22 08/08/22 (units (unknown) date) 08/08/22 unknown) (unknown) (no (unknown) (unknown) 08/08/22 08/08/22 (units (unknown) date) 08/09/22 unknown) (unknown) (no (unknown) (unknown) 08/09/22 08/09/22 (units (unknown) date) 08/09/22 unknown) (unknown) (no (unknown) (unknown) 08/09/22 08/09/22 (units (unknown) date) unknown) (unknown) (no (unknown) (unknown) 08/09/22 04:16 (units (unknown) date) unknown) (unknown) (no (unknown) (unknown) 08/09/22 (units (unkno wn) date) unknown) (unknown) (no (unknown) (unknown) 03:00 08/09/22 (units (unknown) date) unknown) (unknown) (no (unknown) (unknown) 03:00 (units (unkno wn) date) unknown) (unknown) (no (unknown) (unknown) 03:02 08/09/22 (units (unknown) date) unknown) (unknown) (no (unknown) (unknown) 03:02 (units (unkno wn) date) unknown) (unknown) (no (unknown) (unknown) 04:00 08/09/22 (units (unknown) date) unknown) (unknown) (no (unknown) (unknown) 04:16 04:16 04:30 (units (unknown) date) unknown) (unknown) (no (unknown) (unknown) 04:20 08/09/22 (units (unknown) date) unknown) (unknown) (no (unknown) (unknown) 04:20 (units (unkno wn) date) unknown) (unknown) (no (unknown) (unknown) 04:30 04:30 (units (un known) date) unknown) (unknown) (no (unknown) (unknown) 05:00 08/09/22 (units (unknown) date) unknown) (unknown) (no (unknown) (unknown) 05:00 (units (unkno wn) date) unknown) (unknown) (no (unknown) (unknown) 05:02 08/09/22 (units (unknown) date) unknown) (unknown) (no (unknown) (unknown) 05:20 08/09/22 (units (unknown) date) unknown) (unknown) (no (unknown) (unknown) 05:20 (units (unkno wn) date) unknown) (unknown) (no (unknown) (unknown) 05:34 08/09/22 (units (unknown) date) unknown) (unknown) (no (unknown) (unknown) 05:34 (units (unkno wn) date) unknown) (unknown) (no (unknown) (unknown) 06:00 08/09/22 (units (unknown) date) unknown) (unknown) (no (unknown) (unknown) 06:24 08/09/22 (units (unknown) date) unknown) (unknown) (no (unknown) (unknown) 06:24 (units (unkno wn) date) unknown) (unknown) (no (unknown) (unknown) 07:00 08/09/22 (units (unknown) date) unknown) (unknown) (no (unknown) (unknown) 07:00 (units (unkno wn) date) unknown) (unknown) (no (unknown) (unknown) 1. Acute alcohol (units (unknown) date) withdrawal with DTs unknown) (unknown) (no (unknown) (unknown) 2. Acute (units (unkno wn) date) encephalopathy unknown) (unknown) (no (unknown) (unknown) 21:00 21:00 21:00 (units (unknown) date) unknown) (unknown) (no (unknown) (unknown) 21:00 22:30 04:16 (units (unknown) date) unknown) (unknown) (no (unknown) (unknown) 3. Hypernatremia (units (unknown) date) unknown) (unknown) (no (unknown) (unknown) 4. Depression and (units (unknown) date) anxiety unknown) (unknown) (no (unknown) (unknown) 5. Anemia, chronic (units (unknown) date) unknown) (unknown) (no (unknown) (unknown) 6. GERD (units (unkno wn) date) unknown) (unknown) (no (unknown) (unknown) ABD: soft, (units (unk nown) date) nontender, unknown) nondistended, no organomegaly (unknown) (no (unknown) (unknown) ALT 51 H (units (unkno wn) date) unknown) (unknown) (no (unknown) (unknown) ALT 64 H (units (unkno wn) date) unknown) (unknown) (no (unknown) (unknown) ALT (units (unkno wn) date) unknown) (unknown) (no (unknown) (unknown) AST 288 H (units (unkn own) date) unknown) (unknown) (no (unknown) (unknown) AST 424 H (units (unkn own) date) unknown) (unknown) (no (unknown) (unknown) AST (units (unkno wn) date) unknown) (unknown) (no (unknown) (unknown) Age/Sex: 31 / F (units (unknown) date) unknown) (unknown) (no (unknown) (unknown) Albumin 3.6 (units (un known) date) unknown) (unknown) (no (unknown) (unknown) Albumin 4.4 (units (un known) date) unknown) (unknown) (no (unknown) (unknown) Albumin (units (unkno wn) date) unknown) (unknown) (no (unknown) (unknown) Albumin/Globulin (units (unknown) date) Ratio 1.3 unknown) (unknown) (no (unknown) (unknown) Albumin/Globulin (units (unknown) date) Ratio 1.5 unknown) (unknown) (no (unknown) (unknown) Albumin/Globulin (units (unknown) date) Ratio unknown) (unknown) (no (unknown) (unknown) Alcohol withdrawal (units (unknown) date) delirium, acute, unknown) hyperactive (unknown) (no (unknown) (unknown) Alcoholism (units (unk nown) date) unknown) (unknown) (no (unknown) (unknown) Alkaline (units (unkno wn) date) Phosphatase 59 unknown) (unknown) (no (unknown) (unknown) Alkaline (units (unkno wn) date) Phosphatase 71 unknown) (unknown) (no (unknown) (unknown) Alkaline (units (unkno wn) date) Phosphatase unknown) (unknown) (no (unknown) (unknown) Anemia (-2018) (units (unknown) date) unknown) (unknown) (no (unknown) (unknown) Assessment + Plan (units (unknown) date) narrative: unknown) (unknown) (no (unknown) (unknown) Assessment + Plan (units (unknown) date) unknown) (unknown) (no (unknown) (unknown) BUN 7 (units (unkno wn) date) unknown) (unknown) (no (unknown) (unknown) BUN 8 (units (unkno wn) date) unknown) (unknown) (no (unknown) (unknown) BUN (units (unkno wn) date) unknown) (unknown) (no (unknown) (unknown) BUN/Creatinine (units (unknown) date) Ratio 8.9 unknown) (unknown) (no (unknown) (unknown) BUN/Creatinine (units (unknown) date) Ratio 9.2 unknown) (unknown) (no (unknown) (unknown) BUN/Creatinine (units (unknown) date) Ratio unknown) (unknown) (no (unknown) (unknown) Baso # (Auto) 100 (units (unknown) date) unknown) (unknown) (no (unknown) (unknown) Baso # (Auto) (units ( unknown) date) unknown) (unknown) (no (unknown) (unknown) Baso % (Auto) 1.9 (units (unknown) date) unknown) (unknown) (no (unknown) (unknown) Baso % (Auto) 2.5 (units (unknown) date) H unknown) (unknown) (no (unknown) (unknown) Baso % (Auto) (units ( unknown) date) unknown) (unknown) (no (unknown) (unknown) Blood Pressure (units (unknown) date) 73/40 L 75/39 L unknown) (unknown) (no (unknown) (unknown) Blood Pressure (units (unknown) date) 74/40 L unknown) (unknown) (no (unknown) (unknown) Blood Pressure (units (unknown) date) 77/42 L 80/45 L unknown) (unknown) (no (unknown) (unknown) Blood Pressure (units (unknown) date) 77/47 L unknown) (unknown) (no (unknown) (unknown) Blood Pressure (units (unknown) date) 78/43 L unknown) (unknown) (no (unknown) (unknown) Blood Pressure (units (unknown) date) 78/48 L unknown) (unknown) (no (unknown) (unknown) Blood Pressure (units (unknown) date) 80/44 L 79/43 L unknown) (unknown) (no (unknown) (unknown) Blood Pressure (units (unknown) date) 82/44 L 71/42 L unknown) (unknown) (no (unknown) (unknown) Blood Pressure (units (unknown) date) 86/53 L 83/50 L unknown) (unknown) (no (unknown) (unknown) CODE: Full (units (unk nown) date) unknown) (unknown) (no (unknown) (unknown) CV: regular rate (units (unknown) date) and rhythm, no unknown) murmurs (unknown) (no (unknown) (unknown) Calcium 7.7 L (units ( unknown) date) unknown) (unknown) (no (unknown) (unknown) Calcium 8.4 (units (un known) date) unknown) (unknown) (no (unknown) (unknown) Calcium (units (unkno wn) date) unknown) (unknown) (no (unknown) (unknown) Carbon Dioxide 30 (units (unknown) date) unknown) (unknown) (no (unknown) (unknown) Carbon Dioxide 33 (units (unknown) date) H unknown) (unknown) (no (unknown) (unknown) Carbon Dioxide (units (unknown) date) unknown) (unknown) (no (unknown) (unknown) Chloride 104 (units (u nknown) date) unknown) (unknown) (no (unknown) (unknown) Chloride 107 (units (u nknown) date) unknown) (unknown) (no (unknown) (unknown) Chloride (units (unkno wn) date) unknown) (unknown) (no (unknown) (unknown) Conjugated (units (unk nown) date) Bilirubin 0.0 unknown) (unknown) (no (unknown) (unknown) Conjugated (units (unk nown) date) Bilirubin unknown) (unknown) (no (unknown) (unknown) Creatinine 0.76 (units (unknown) date) unknown) (unknown) (no (unknown) (unknown) Creatinine 0.90 (units (unknown) date) unknown) (unknown) (no (unknown) (unknown) Creatinine (units (unk nown) date) unknown) (unknown) (no (unknown) (unknown) : 1990 (units (unknown) date) Acct:[id number] unknown) (unknown) (no (unknown) (unknown) Date of Service: (units (unknown) date) 08/08/22 unknown) (unknown) (no (unknown) (unknown) Deep Vein (units (unkn own) date) Thrombosis/Pulmonar unknown) y Embolism Present on Admission: No (unknown) (no (unknown) (unknown) EXT: warm and well (units (unknown) date) perfused with no unknown) edema (unknown) (no (unknown) (unknown) Eos # (Auto) 0 (units (unknown) date) unknown) (unknown) (no (unknown) (unknown) Eos # (Auto) (units (u nknown) date) unknown) (unknown) (no (unknown) (unknown) Eos % (Auto) 0.7 L (units (unknown) date) unknown) (unknown) (no (unknown) (unknown) Eos % (Auto) 0.8 L (units (unknown) date) unknown) (unknown) (no (unknown) (unknown) Eos % (Auto) (units (u nknown) date) unknown) (unknown) (no (unknown) (unknown) Estimated GFR > 60 (units (unknown) date) unknown) (unknown) (no (unknown) (unknown) Estimated GFR (units ( unknown) date) unknown) (unknown) (no (unknown) (unknown) Ethyl Alcohol 393 (units (unknown) date) H unknown) (unknown) (no (unknown) (unknown) Ethyl Alcohol (units ( unknown) date) unknown) (unknown) (no (unknown) (unknown) Exam Narrative: (units (unknown) date) unknown) (unknown) (no (unknown) (unknown) Exam (units (unkno wn) date) unknown) (unknown) (no (unknown) (unknown) Family History (units (unknown) date) (Reviewed 08/09/22 unknown) @ 05:03 by Roberto Vasquez MD) (unknown) (no (unknown) (unknown) Family/Other (units (u nknown) date) Alcoholism unknown) (unknown) (no (unknown) (unknown) Family/Other (units (u nknown) date) Diabetes mellitus unknown) (unknown) (no (unknown) (unknown) Father Alcoholism (units (unknown) date) unknown) (unknown) (no (unknown) (unknown) GEN: sedated, (units ( unknown) date) sleeping unknown) (unknown) (no (unknown) (unknown) Globulin 2.4 (units (u nknown) date) unknown) (unknown) (no (unknown) (unknown) Globulin 3.3 (units (u nknown) date) unknown) (unknown) (no (unknown) (unknown) Globulin (units (unkno wn) date) unknown) (unknown) (no (unknown) (unknown) Glucose 84 (units (unk nown) date) unknown) (unknown) (no (unknown) (unknown) Glucose 92 (units (unk nown) date) unknown) (unknown) (no (unknown) (unknown) Glucose (units (unkno wn) date) unknown) (unknown) (no [...] extraction () unknown) (unknown) (no (unknown) (unknown) HEENT: moist (units (u nknown) date) mucous membranes, unknown) PERRL (unknown) (no (unknown) (unknown) Hct 31.4 L (units (unk nown) date) unknown) (unknown) (no (unknown) (unknown) Hct 37.0 (units (unkno wn) date) unknown) (unknown) (no (unknown) (unknown) Hct (units (unkno wn) date) unknown) (unknown) (no (unknown) (unknown) Hgb 10.1 L (units (unk nown) date) unknown) (unknown) (no (unknown) (unknown) Hgb 11.9 L (units (unk nown) date) unknown) (unknown) (no (unknown) (unknown) Hgb (units (unkno wn) date) unknown) (unknown) (no (unknown) (unknown) Insomnia (units (unkno wn) date) unknown) (unknown) (no (unknown) (unknown) [facility] (units (unknown) date) [address] unknown) [place] [address] (unknown) (no (unknown) (unknown) Laboratory Results (units (unknown) date) - last 24 hr unknown) (unknown) (no (unknown) (unknown) Labs (units (unkno wn) date) unknown) (unknown) (no (unknown) (unknown) Labs: (units (unkno wn) date) unknown) (unknown) (no (unknown) (unknown) Lipase 408 H (units (u nknown) date) unknown) (unknown) (no (unknown) (unknown) Lipase (units (unkno wn) date) unknown) (unknown) (no (unknown) (unknown) Lymph # (Auto) (units (unknown) date) 2600 unknown) (unknown) (no (unknown) (unknown) Lymph # (Auto) (units (unknown) date) 2800 unknown) (unknown) (no (unknown) (unknown) Lymph # (Auto) (units (unknown) date) unknown) (unknown) (no (unknown) (unknown) Lymph % (Auto) (units (unknown) date) 51.5 H unknown) (unknown) (no (unknown) (unknown) Lymph % (Auto) (units (unknown) date) 54.2 H unknown) (unknown) (no (unknown) (unknown) Lymph % (Auto) (units (unknown) date) unknown) (unknown) (no (unknown) (unknown) MCH 25.4 L (units (unk nown) date) unknown) (unknown) (no (unknown) (unknown) MCH 25.7 L (units (unk nown) date) unknown) (unknown) (no (unknown) (unknown) MCH (units (unkno wn) date) unknown) (unknown) (no (unknown) (unknown) MCHC 32.1 (units (unkn own) date) unknown) (unknown) (no (unknown) (unknown) MCHC 32.2 (units (unkn own) date) unknown) (unknown) (no (unknown) (unknown) MCHC (units (unkno wn) date) unknown) (unknown) (no (unknown) (unknown) MCV 79.0 L (units (unk nown) date) unknown) (unknown) (no (unknown) (unknown) MCV 80.2 (units (unkno wn) date) unknown) (unknown) (no (unknown) (unknown) MCV (units (unkno wn) date) unknown) (unknown) (no (unknown) (unknown) Magnesium 2.2 (units ( unknown) date) unknown) (unknown) (no (unknown) (unknown) Magnesium (units (unkn own) date) unknown) (unknown) (no (unknown) (unknown) Medical History (units (unknown) date) (Reviewed 08/09/22 unknown) @ 05:03 by Roberto Vasquez MD) (unknown) (no (unknown) (unknown) Menometrorrhagia (units (unknown) date) unknown) (unknown) (no (unknown) (unknown) Yates # (Auto) 300 (units (unknown) date) unknown) (unknown) (no (unknown) (unknown) Yates # (Auto) 400 (units (unknown) date) unknown) (unknown) (no (unknown) (unknown) Yates # (Auto) (units ( unknown) date) unknown) (unknown) (no (unknown) (unknown) Yates % (Auto) 6.5 (units (unknown) date) unknown) (unknown) (no (unknown) (unknown) Yates % (Auto) 8.6 (units (unknown) date) unknown) (unknown) (no (unknown) (unknown) Yates % (Auto) (units ( unknown) date) unknown) (unknown) (no (unknown) (unknown) Mother Diabetes (units (unknown) date) mellitus unknown) (unknown) (no (unknown) (unknown) NECK: trachea (units ( unknown) date) midline, no JVD unknown) (unknown) (no (unknown) (unknown) NEURO: sleepy, (units (unknown) date) sedated, moving all unknown) extremities, no focal deficits noted (unknown) (no (unknown) (unknown) Narrative (units (unkn own) date) unknown) (unknown) (no (unknown) (unknown) Neut # (Auto) 1900 (units (unknown) date) unknown) (unknown) (no (unknown) (unknown) Neut # (Auto) (units ( unknown) date) unknown) (unknown) (no (unknown) (unknown) Neut % (Auto) 36.6 (units (unknown) date) L unknown) (unknown) (no (unknown) (unknown) Neut % (Auto) 36.7 (units (unknown) date) L unknown) (unknown) (no (unknown) (unknown) Neut % (Auto) (units ( unknown) date) unknown) (unknown) (no (unknown) (unknown) Obesity (units (unkno wn) date) unknown) (unknown) (no (unknown) (unknown) Objective (units (unkn own) date) unknown) (unknown) (no (unknown) (unknown) Overweight (units (unk nown) date) unknown) (unknown) (no (unknown) (unknown) Oxygen Delivery (units (unknown) date) Method Room Air unknown) (unknown) (no (unknown) (unknown) PFSH (units (unkno wn) date) unknown) (unknown) (no (unknown) (unknown) PULM: clear (units (un known) date) bilaterally, no unknown) wheezes, rhonchi, rales (unknown) (no (unknown) (unknown) Patient: (units (unkno wn) date) DorySarah R unknown) MR#: M (unknown) (no (unknown) (unknown) Plt Count 332 (units ( unknown) date) unknown) (unknown) (no (unknown) (unknown) Plt Count 396 (units ( unknown) date) unknown) (unknown) (no (unknown) (unknown) Plt Count (units (unkn own) date) unknown) (unknown) (no (unknown) (unknown) Potassium 3.5 (units ( unknown) date) unknown) (unknown) (no (unknown) (unknown) Potassium 3.6 (units ( unknown) date) unknown) (unknown) (no (unknown) (unknown) Potassium (units (unkn own) date) unknown) (unknown) (no (unknown) (unknown) Progress Note (units ( unknown) date) unknown) (unknown) (no (unknown) (unknown) Provider: (units (unkn own) date) Jabari Sena unknown) D.O. (unknown) (no (unknown) (unknown) Proxy: Rober (units (unknown) date) Dory, spouse unknown) (unknown) (no (unknown) (unknown) Pulse Oximetry 95 (units (unknown) date) 95 unknown) (unknown) (no (unknown) (unknown) Pulse Oximetry 95 (units (unknown) date) 96 unknown) (unknown) (no (unknown) (unknown) Pulse Oximetry 95 (units (unknown) date) unknown) (unknown) (no (unknown) (unknown) Pulse Oximetry 96 (units (unknown) date) unknown) (unknown) (no (unknown) (unknown) Pulse Oximetry 97 (units (unknown) date) 96 unknown) (unknown) (no (unknown) (unknown) Pulse Oximetry 97 (units (unknown) date) unknown) (unknown) (no (unknown) (unknown) Pulse Oximetry 99 (units (unknown) date) 99 unknown) (unknown) (no (unknown) (unknown) Pulse Rate 69 72 (units (unknown) date) unknown) (unknown) (no (unknown) (unknown) Pulse Rate 71 (units ( unknown) date) unknown) (unknown) (no (unknown) (unknown) Pulse Rate 72 (units ( unknown) date) unknown) (unknown) (no (unknown) (unknown) Pulse Rate 75 69 (units (unknown) date) unknown) (unknown) (no (unknown) (unknown) Pulse Rate 75 75 (units (unknown) date) unknown) (unknown) (no (unknown) (unknown) Pulse Rate 75 78 (units (unknown) date) unknown) (unknown) (no (unknown) (unknown) Pulse Rate 75 (units ( unknown) date) unknown) (unknown) (no (unknown) (unknown) Pulse Rate 76 71 (units (unknown) date) unknown) (unknown) (no (unknown) (unknown) Pulse Rate 79 76 (units (unknown) date) unknown) (unknown) (no (unknown) (unknown) Quality (units (unkno wn) date) unknown) (unknown) (no (unknown) (unknown) RBC 3.98 L (units (unk nown) date) unknown) (unknown) (no (unknown) (unknown) RBC 4.61 (units (unkno wn) date) unknown) (unknown) (no (unknown) (unknown) RBC (units (unkno wn) date) unknown) (unknown) (no (unknown) (unknown) RDW 19.5 H (units (unk nown) date) unknown) (unknown) (no (unknown) (unknown) RDW 19.7 H (units (unk nown) date) unknown) (unknown) (no (unknown) (unknown) RDW (units (unkno wn) date) unknown) (unknown) (no (unknown) (unknown) Respiratory Rate (units (unknown) date) 14 16 unknown) (unknown) (no (unknown) (unknown) Respiratory Rate (units (unknown) date) 16 16 unknown) (unknown) (no (unknown) (unknown) Respiratory Rate (units (unknown) date) 18 19 unknown) (unknown) (no (unknown) (unknown) Respiratory Rate (units (unknown) date) 18 unknown) (unknown) (no (unknown) (unknown) Respiratory Rate (units (unknown) date) 19 unknown) (unknown) (no (unknown) (unknown) Respiratory Rate (units (unknown) date) 21 20 unknown) (unknown) (no (unknown) (unknown) Respiratory Rate (units (unknown) date) 27 H unknown) (unknown) (no (unknown) (unknown) Respiratory Rate (units (unknown) date) 34 H 23 unknown) (unknown) (no (unknown) (unknown) Respiratory Rate (units (unknown) date) 37 H 16 unknown) (unknown) (no (unknown) (unknown) Respiratory Rate (units (unknown) date) 37 H unknown) (unknown) (no (unknown) (unknown) S/P myringotomy (units (unknown) date) with insertion of unknown) tube (unknown) (no (unknown) (unknown) SARS-CoV-2 (PCR) (units (unknown) date) Negative unknown) (unknown) (no (unknown) (unknown) SARS-CoV-2 (PCR) (units (unknown) date) unknown) (unknown) (no (unknown) (unknown) (spontaneous (units (unknown) date) vaginal delivery) unknown) (-09/05/18) (unknown) (no (unknown) (unknown) Signed By: (units (unk nown) date) unknown) (unknown) (no (unknown) (unknown) Smoker (units (unkno wn) date) unknown) (unknown) (no (unknown) (unknown) Smoking Status: (units (unknown) date) Former smoker unknown) (unknown) (no (unknown) (unknown) Social History (units (unknown) date) (Reviewed 08/09/22 unknown) @ 05:03 by Roberto Vasquez MD) (unknown) (no (unknown) (unknown) Sodium 145 (units (unk nown) date) unknown) (unknown) (no (unknown) (unknown) Sodium 148 H D (units (unknown) date) unknown) (unknown) (no (unknown) (unknown) Sodium (units (unkno wn) date) unknown) (unknown) (no (unknown) (unknown) Surgical History (units (unknown) date) (Reviewed 08/09/22 unknown) @ 05:03 by Roberto Vasquez MD) (unknown) (no (unknown) (unknown) Temperature 98.6 F (units (unknown) date) unknown) (unknown) (no (unknown) (unknown) Temperature (units (un known) date) unknown) (unknown) (no (unknown) (unknown) Total Bilirubin (units (unknown) date) 0.3 unknown) (unknown) (no (unknown) (unknown) Total Bilirubin (units (unknown) date) 0.4 unknown) (unknown) (no (unknown) (unknown) Total Bilirubin (units (unknown) date) unknown) (unknown) (no (unknown) (unknown) Total Protein 6.0 (units (unknown) date) L unknown) (unknown) (no (unknown) (unknown) Total Protein 7.7 (units (unknown) date) unknown) (unknown) (no (unknown) (unknown) Total Protein (units ( unknown) date) unknown) (unknown) (no (unknown) (unknown) U Benzodiazepines (units (unknown) date) Scrn Positive H unknown) (unknown) (no (unknown) (unknown) U Benzodiazepines (units (unknown) date) Scrn unknown) (unknown) (no (unknown) (unknown) U Marijuana (THC) (units (unknown) date) Screen Negative unknown) (unknown) (no (unknown) (unknown) U Marijuana (THC) (units (unknown) date) Screen unknown) (unknown) (no (unknown) (unknown) U Methamphetamines (units (unknown) date) Scrn Negative unknown) (unknown) (no (unknown) (unknown) U Methamphetamines (units (unknown) date) Scrn unknown) (unknown) (no (unknown) (unknown) U Opiates 300ng/mL (units (unknown) date) cut Negative unknown) (unknown) (no (unknown) (unknown) U Opiates 300ng/mL (units (unknown) date) cut unknown) (unknown) (no (unknown) (unknown) U Tricyclic (units (un known) date) Antidepress unknown) Positive H (unknown) (no (unknown) (unknown) U Tricyclic (units (un known) date) Antidepress unknown) (unknown) (no (unknown) (unknown) Unconjugated (units (u nknown) date) Bilirubin 0.0 unknown) (unknown) (no (unknown) (unknown) Unconjugated (units (u nknown) date) Bilirubin unknown) (unknown) (no (unknown) (unknown) Ur Amphetamines (units (unknown) date) Screen Negative unknown) (unknown) (no (unknown) (unknown) Ur Amphetamines (units (unknown) date) Screen unknown) (unknown) (no (unknown) (unknown) Ur Barbiturates (units (unknown) date) Screen Positive H unknown) (unknown) (no (unknown) (unknown) Ur Barbiturates (units (unknown) date) Screen unknown) (unknown) (no (unknown) (unknown) Ur Culture (units (unk nown) date) Indicated? Specimen unknown) cultured (unknown) (no (unknown) (unknown) Ur Culture (units (unk nown) date) Indicated? unknown) (unknown) (no (unknown) (unknown) Ur Leukocyte (units (u nknown) date) Esterase 1+ H unknown) (unknown) (no (unknown) (unknown) Ur Leukocyte (units (u nknown) date) Esterase unknown) (unknown) (no (unknown) (unknown) Ur MDMA Scrn (units (u nknown) date) (Ecstasy) Negative unknown) (unknown) (no (unknown) (unknown) Ur MDMA Scrn (units (u nknown) date) (Ecstasy) unknown) (unknown) (no (unknown) (unknown) Ur Oxycodone (units (u nknown) date) Screen Negative unknown) (unknown) (no (unknown) (unknown) Ur Oxycodone (units (u nknown) date) Screen unknown) (unknown) (no (unknown) (unknown) Ur Phencyclidine (units (unknown) date) Scrn Negative unknown) (unknown) (no (unknown) (unknown) Ur Phencyclidine (units (unknown) date) Scrn unknown) (unknown) (no (unknown) (unknown) Ur Specific (units (un known) date) [place] 1.015 unknown) (unknown) (no (unknown) (unknown) Ur Specific (units (un known) date) [place] unknown) (unknown) (no (unknown) (unknown) Urine Appearance (units (unknown) date) Clear unknown) (unknown) (no (unknown) (unknown) Urine Appearance (units (unknown) date) unknown) (unknown) (no (unknown) (unknown) Urine Bacteria (units (unknown) date) Many (>30) H unknown) (unknown) (no (unknown) (unknown) Urine Bacteria (units (unknown) date) unknown) (unknown) (no (unknown) (unknown) Urine Bilirubin (units (unknown) date) Negative unknown) (unknown) (no (unknown) (unknown) Urine Bilirubin (units (unknown) date) unknown) (unknown) (no (unknown) (unknown) Urine Cocaine (units ( unknown) date) Screen Negative unknown) (unknown) (no (unknown) (unknown) Urine Cocaine (units ( unknown) date) Screen unknown) (unknown) (no (unknown) (unknown) Urine Color Yellow (units (unknown) date) unknown) (unknown) (no (unknown) (unknown) Urine Color (units (un known) date) unknown) (unknown) (no (unknown) (unknown) Urine Glucose (UA) (units (unknown) date) Negative unknown) (unknown) (no (unknown) (unknown) Urine Glucose (UA) (units (unknown) date) unknown) (unknown) (no (unknown) (unknown) Urine Ketones (units ( unknown) date) Negative unknown) (unknown) (no (unknown) (unknown) Urine Ketones (units ( unknown) date) unknown) (unknown) (no (unknown) (unknown) Urine Methadone (units (unknown) date) Screen Negative unknown) (unknown) (no (unknown) (unknown) Urine Methadone (units (unknown) date) Screen unknown) (unknown) (no (unknown) (unknown) Urine Nitrate (units ( unknown) date) Positive H unknown) (unknown) (no (unknown) (unknown) Urine Nitrate (units ( unknown) date) unknown) (unknown) (no (unknown) (unknown) Urine Occult Blood (units (unknown) date) Negative unknown) (unknown) (no (unknown) (unknown) Urine Occult Blood (units (unknown) date) unknown) (unknown) (no (unknown) (unknown) Urine (units (unknown) date) Test Negative unknown) (unknown) (no (unknown) (unknown) Urine (units (unknown) date) Test unknown) (unknown) (no (unknown) (unknown) Urine Protein (units ( unknown) date) Negative unknown) (unknown) (no (unknown) (unknown) Urine Protein (units ( unknown) date) unknown) (unknown) (no (unknown) (unknown) Urine RBC None (units (unknown) date) seen unknown) (unknown) (no (unknown) (unknown) Urine RBC (units (unkn own) date) unknown) (unknown) (no (unknown) (unknown) Urine Urobilinogen (units (unknown) date) 0.2 unknown) (unknown) (no (unknown) (unknown) Urine Urobilinogen (units (unknown) date) unknown) (unknown) (no (unknown) (unknown) Urine WBC (units (unkn own) date) 10-30/hpf H unknown) (unknown) (no (unknown) (unknown) Urine WBC (units (unkn own) date) unknown) (unknown) (no (unknown) (unknown) Urine pH 6.0 (units (u nknown) date) unknown) (unknown) (no (unknown) (unknown) Urine pH (units (unkno wn) date) unknown) (unknown) (no (unknown) (unknown) VTE (units (unkno wn) date) unknown) (unknown) (no (unknown) (unknown) Vital Signs (units (un known) date) unknown) (unknown) (no (unknown) (unknown) WBC 5.1 (units (unkno wn) date) unknown) (unknown) (no (unknown) (unknown) WBC 5.2 (units (unkno wn) date) unknown) (unknown) (no (unknown) (unknown) WBC (units (unkno wn) date) unknown) (unknown) (no (unknown) (unknown) [Embedded Image (units (unknown) date) Not Available] unknown) (unknown) (no (unknown) (unknown) alcohol intake: (units (unknown) date) current unknown) (unknown) (no (unknown) (unknown) and place in ICU (units (unknown) date) unknown) (unknown) (no (unknown) (unknown) current (units (unkno wn) date) occupational unknown) exposures/hazards: Yes (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 with Pandemic ) (unknown) (no (unknown) (unknown) education level: (units (unknown) date) college unknown) (unknown) (no (unknown) (unknown) renee/zoroastrianism: (units (unknown) date) Buddhist unknown) (unknown) (no (unknown) (unknown) household members: (units (unknown) date) significant other unknown) (unknown) (no (unknown) (unknown) marital status: (units (unknown) date) unknown) (unknown) (no (unknown) (unknown) month (units (unkno wn) date) unknown) (unknown) (no (unknown) (unknown) number of (units (unkn own) date) children: 1 unknown) (unknown) (no (unknown) (unknown) occupational (units (u nknown) date) status: employed unknown) (unknown) (no (unknown) (unknown) second hand (units (un known) date) exposure: No unknown) (growing up as a child - not currently) (unknown) (no (unknown) (unknown) special renee (units ( unknown) date) needs: No unknown) (unknown) (no (unknown) (unknown) substance use (units ( unknown) date) type: does not use unknown) Result panel [id number] (unknown) (no (unknown) (unknown) (no value) (units (unk nown) date) unknown) (unknown) (no (unknown) (unknown) (1) Abnormal (units (u nknown) date) urinalysis: unknown) (unknown) (no (unknown) (unknown) (2) Alcohol (units (un known) date) intoxication: unknown) (unknown) (no (unknown) (unknown) (3) Alcohol (units (un known) date) withdrawal: unknown) (unknown) (no (unknown) (unknown) (past 8 hours): (units (unknown) date) unknown) (unknown) (no (unknown) (unknown) 0.2 MCG/KG/HR (units ( unknown) date) unknown) (unknown) (no (unknown) (unknown) [id number] (units (unkn own) date) unknown) (unknown) (no (unknown) (unknown) 01:00 08/09/22 (units (unknown) date) unknown) (unknown) (no (unknown) (unknown) 01:06 08/09/22 (units (unknown) date) unknown) (unknown) (no (unknown) (unknown) 01:06 (units (unkno wn) date) unknown) (unknown) (no (unknown) (unknown) 01:29 08/09/22 (units (unknown) date) unknown) (unknown) (no (unknown) (unknown) 01:29 (units (unkno wn) date) unknown) (unknown) (no (unknown) (unknown) 02:00 08/09/22 (units (unknown) date) unknown) (unknown) (no (unknown) (unknown) 07/14/22 [Rx (units (u nknown) date) Confirmed 08/01/22] unknown) (unknown) (no (unknown) (unknown) 08/01/22] (units (unkn own) date) unknown) (unknown) (no (unknown) (unknown) 08/03/22 [Rx] (units ( unknown) date) unknown) (unknown) (no (unknown) (unknown) 08/08/22 08/08/22 (units (unknown) date) 08/08/22 unknown) (unknown) (no (unknown) (unknown) 08/08/22 08/08/22 (units (unknown) date) 08/09/22 unknown) (unknown) (no (unknown) (unknown) 08/09/22 08/09/22 (units (unknown) date) 08/09/22 unknown) (unknown) (no (unknown) (unknown) 08/09/22 08/09/22 (units (unknown) date) unknown) (unknown) (no (unknown) (unknown) 08/09/22 04:16 (units (unknown) date) unknown) (unknown) (no (unknown) (unknown) 08/09/22 05:06 (units (unknown) date) unknown) (unknown) (no (unknown) (unknown) 08/09/22 (units (unkno wn) date) unknown) (unknown) (no (unknown) (unknown) 03:00 08/09/22 (units (unknown) date) unknown) (unknown) (no (unknown) (unknown) 03:00 (units (unkno wn) date) unknown) (unknown) (no (unknown) (unknown) 03:02 08/09/22 (units (unknown) date) unknown) (unknown) (no (unknown) (unknown) 03:02 (units (unkno wn) date) unknown) (unknown) (no (unknown) (unknown) 04:00 08/09/22 (units (unknown) date) unknown) (unknown) (no (unknown) (unknown) 04:16 04:16 04:30 (units (unknown) date) unknown) (unknown) (no (unknown) (unknown) 04:20 08/09/22 (units (unknown) date) unknown) (unknown) (no (unknown) (unknown) 04:20 (units (unkno wn) date) unknown) (unknown) (no (unknown) (unknown) 04:30 04:30 (units (un known) date) unknown) (unknown) (no (unknown) (unknown) 05:00 08/09/22 (units (unknown) date) unknown) (unknown) (no (unknown) (unknown) 05:00 (units (unkno wn) date) unknown) (unknown) (no (unknown) (unknown) 05:02 08/09/22 (units (unknown) date) unknown) (unknown) (no (unknown) (unknown) 05:20 08/09/22 (units (unknown) date) unknown) (unknown) (no (unknown) (unknown) 05:20 (units (unkno wn) date) unknown) (unknown) (no (unknown) (unknown) 05:34 08/09/22 (units (unknown) date) unknown) (unknown) (no (unknown) (unknown) 05:34 (units (unkno wn) date) unknown) (unknown) (no (unknown) (unknown) 06:00 08/09/22 (units (unknown) date) unknown) (unknown) (no (unknown) (unknown) 06:24 08/09/22 (units (unknown) date) unknown) (unknown) (no (unknown) (unknown) 06:24 (units (unkno wn) date) unknown) (unknown) (no (unknown) (unknown) 07:00 08/09/22 (units (unknown) date) unknown) (unknown) (no (unknown) (unknown) 07:00 (units (unkno wn) date) unknown) (unknown) (no (unknown) (unknown) 07:35 (units (unkno wn) date) unknown) (unknown) (no (unknown) (unknown) 21:00 21:00 21:00 (units (unknown) date) unknown) (unknown) (no (unknown) (unknown) 21:00 22:30 04:16 (units (unknown) date) unknown) (unknown) (no (unknown) (unknown) ALT 51 H (units (unkno wn) date) unknown) (unknown) (no (unknown) (unknown) ALT 64 H (units (unkno wn) date) unknown) (unknown) (no (unknown) (unknown) ALT (units (unkno wn) date) unknown) (unknown) (no (unknown) (unknown) AST 288 H (units (unkn own) date) unknown) (unknown) (no (unknown) (unknown) AST 424 H (units (unkn own) date) unknown) (unknown) (no (unknown) (unknown) AST (units (unkno wn) date) unknown) (unknown) (no (unknown) (unknown) Age/Sex: 31 / F (units (unknown) date) unknown) (unknown) (no (unknown) (unknown) Albumin 3.6 (units (un known) date) unknown) (unknown) (no (unknown) (unknown) Albumin 4.4 (units (un known) date) unknown) (unknown) (no (unknown) (unknown) Albumin (units (unkno wn) date) unknown) (unknown) (no (unknown) (unknown) Albumin/Globulin (units (unknown) date) Ratio 1.3 unknown) (unknown) (no (unknown) (unknown) Albumin/Globulin (units (unknown) date) Ratio 1.5 unknown) (unknown) (no (unknown) (unknown) Albumin/Globulin (units (unknown) date) Ratio unknown) (unknown) (no (unknown) (unknown) Alcohol Withdrawal (units (unknown) date) unknown) (unknown) (no (unknown) (unknown) Alkaline (units (unkno wn) date) Phosphatase 59 unknown) (unknown) (no (unknown) (unknown) Alkaline (units (unkno wn) date) Phosphatase 71 unknown) (unknown) (no (unknown) (unknown) Alkaline (units (unkno wn) date) Phosphatase unknown) (unknown) (no (unknown) (unknown) Assessment + Plan (units (unknown) date) unknown) (unknown) (no (unknown) (unknown) Assessment and (units (unknown) date) plan unknown) (unknown) (no (unknown) (unknown) BUN 7 (units (unkno wn) date) unknown) (unknown) (no (unknown) (unknown) BUN 8 (units (unkno wn) date) unknown) (unknown) (no (unknown) (unknown) BUN (units (unkno wn) date) unknown) (unknown) (no (unknown) (unknown) BUN/Creatinine (units (unknown) date) Ratio 8.9 unknown) (unknown) (no (unknown) (unknown) BUN/Creatinine (units (unknown) date) Ratio 9.2 unknown) (unknown) (no (unknown) (unknown) BUN/Creatinine (units (unknown) date) Ratio unknown) (unknown) (no (unknown) (unknown) Baso # (Auto) 100 (units (unknown) date) unknown) (unknown) (no (unknown) (unknown) Baso # (Auto) (units ( unknown) date) unknown) (unknown) (no (unknown) (unknown) Baso % (Auto) 1.9 (units (unknown) date) unknown) (unknown) (no (unknown) (unknown) Baso % (Auto) 2.5 (units (unknown) date) H unknown) (unknown) (no (unknown) (unknown) Baso % (Auto) (units ( unknown) date) unknown) (unknown) (no (unknown) (unknown) Blood Pressure (units (unknown) date) 73/40 L 75/39 L unknown) (unknown) (no (unknown) (unknown) Blood Pressure (units (unknown) date) 74/40 L unknown) (unknown) (no (unknown) (unknown) Blood Pressure (units (unknown) date) 77/42 L 80/45 L unknown) (unknown) (no (unknown) (unknown) Blood Pressure (units (unknown) date) 77/47 L unknown) (unknown) (no (unknown) (unknown) Blood Pressure (units (unknown) date) 78/43 L unknown) (unknown) (no (unknown) (unknown) Blood Pressure (units (unknown) date) 78/48 L unknown) (unknown) (no (unknown) (unknown) Blood Pressure (units (unknown) date) 80/44 L 79/43 L unknown) (unknown) (no (unknown) (unknown) Blood Pressure (units (unknown) date) 82/44 L 71/42 L unknown) (unknown) (no (unknown) (unknown) Blood Pressure (units (unknown) date) 86/53 L 83/50 L unknown) (unknown) (no (unknown) (unknown) CIWAPRN PRN (units (un known) date) Administration unknown) (unknown) (no (unknown) (unknown) Calcium 7.7 L (units ( unknown) date) unknown) (unknown) (no (unknown) (unknown) Calcium 8.4 (units (un known) date) unknown) (unknown) (no (unknown) (unknown) Calcium (units (unkno wn) date) unknown) (unknown) (no (unknown) (unknown) Carbon Dioxide 30 (units (unknown) date) unknown) (unknown) (no (unknown) (unknown) Carbon Dioxide 33 (units (unknown) date) H unknown) (unknown) (no (unknown) (unknown) Carbon Dioxide (units (unknown) date) unknown) (unknown) (no (unknown) (unknown) Cardio (units (unkno wn) date) unknown) (unknown) (no (unknown) (unknown) Ceftriaxone Sodium (units (unknown) date) 1,000 mg/ 100 mls @ unknown) 200 mls/hr 08/09/22 07:00 08/09/22 (unknown) (no (unknown) (unknown) Check LA (units (unkno wn) date) unknown) (unknown) (no (unknown) (unknown) Chlordiazepoxide (units (unknown) date) 25 Mg Capsule PO 50 unknown) mg (unknown) (no (unknown) (unknown) Chlordiazepoxide (units (unknown) date) HCl 50 mg 08/09/22 unknown) 00:00 08/09/22 06:12 (unknown) (no (unknown) (unknown) Chloride 104 (units (u nknown) date) unknown) (unknown) (no (unknown) (unknown) Chloride 107 (units (u nknown) date) unknown) (unknown) (no (unknown) (unknown) Chloride (units (unkno wn) date) unknown) (unknown) (no (unknown) (unknown) Confirmed (units (unkn own) date) 08/01/22] unknown) (unknown) (no (unknown) (unknown) Conjugated (units (unk nown) date) Bilirubin 0.0 unknown) (unknown) (no (unknown) (unknown) Conjugated (units (unk nown) date) Bilirubin unknown) (unknown) (no (unknown) (unknown) Consent obtained (units (unknown) date) for unknown) 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: Yes (unknown) (no (unknown) (unknown) Creatinine 0.76 (units (unknown) date) unknown) (unknown) (no (unknown) (unknown) Creatinine 0.90 (units (unknown) date) unknown) (unknown) (no (unknown) (unknown) Creatinine (units (unk nown) date) unknown) (unknown) (no (unknown) (unknown) Culture pending (units (unknown) date) unknown) (unknown) (no (unknown) (unknown) Current (units (unkno wn) date) Medications unknown) (unknown) (no (unknown) (unknown) : 1990 (units (unknown) date) Acct:[id number] unknown) (unknown) (no (unknown) (unknown) Date of Service: (units (unknown) date) 08/08/22 unknown) (unknown) (no (unknown) (unknown) Deep Vein (units (unkn own) date) Thrombosis/Pulmonar unknown) y Embolism Present on Admission: No (unknown) (no (unknown) (unknown) ETO (units (unkno wn) date) unknown) (unknown) (no (unknown) (unknown) Eos # (Auto) 0 (units (unknown) date) unknown) (unknown) (no (unknown) (unknown) Eos # (Auto) (units (u nknown) date) unknown) (unknown) (no (unknown) (unknown) Eos % (Auto) 0.7 L (units (unknown) date) unknown) (unknown) (no (unknown) (unknown) Eos % (Auto) 0.8 L (units (unknown) date) unknown) (unknown) (no (unknown) (unknown) Eos % (Auto) (units (u nknown) date) unknown) (unknown) (no (unknown) (unknown) Estimated GFR > 60 (units (unknown) date) unknown) (unknown) (no (unknown) (unknown) Estimated GFR (units ( unknown) date) unknown) (unknown) (no (unknown) (unknown) Ethyl Alcohol 393 (units (unknown) date) H unknown) (unknown) (no (unknown) (unknown) Ethyl Alcohol (units ( unknown) date) unknown) (unknown) (no (unknown) (unknown) Exam Narrative: (units (unknown) date) unknown) (unknown) (no (unknown) (unknown) Exam (units (unkno wn) date) unknown) (unknown) (no (unknown) (unknown) Generic Name Dose (units (unknown) date) Route Start Last unknown) Admin (unknown) (no (unknown) (unknown) Globulin 2.4 (units (u nknown) date) unknown) (unknown) (no (unknown) (unknown) Globulin 3.3 (units (u nknown) date) unknown) (unknown) (no (unknown) (unknown) Globulin (units (unkno wn) date) unknown) (unknown) (no (unknown) (unknown) Glucose 84 (units (unk nown) date) unknown) (unknown) (no (unknown) (unknown) Glucose 92 (units (unk nown) date) unknown) (unknown) (no (unknown) (unknown) Glucose (units (unkno wn) date) unknown) (unknown) (no (unknown) (unknown) Hct 31.4 L (units (unk nown) date) unknown) (unknown) (no (unknown) (unknown) Hct 37.0 (units (unkno wn) date) unknown) (unknown) (no (unknown) (unknown) Hct (units (unkno wn) date) unknown) (unknown) (no (unknown) (unknown) Hgb 10.1 L (units (unk nown) date) unknown) (unknown) (no (unknown) (unknown) Hgb 11.9 L (units (unk nown) date) unknown) (unknown) (no (unknown) (unknown) Hgb (units (unkno wn) date) unknown) (unknown) (no (unknown) (unknown) Home Medications (units (unknown) date) unknown) (unknown) (no (unknown) (unknown) IF CAMERA (units (unkn own) date) ACTIVATED, patient unknown) seen via real-time interactive audiovisual (unknown) (no (unknown) (unknown) Interval history: (units (unknown) date) unknown) (unknown) (no (unknown) (unknown) [facility] (units (unknown) date) [address] unknown) [place] [id number] (unknown) (no (unknown) (unknown) LR this am after (units (unknown) date) BP 80's/40's unknown) (unknown) (no (unknown) (unknown) Laboratory Results (units (unknown) date) - last 24 hr unknown) (unknown) (no (unknown) (unknown) Labs (units (unkno wn) date) unknown) (unknown) (no (unknown) (unknown) Labs: (units (unkno wn) date) unknown) (unknown) (no (unknown) (unknown) Lipase 408 H (units (u nknown) date) unknown) (unknown) (no (unknown) (unknown) Lipase (units (unkno wn) date) unknown) (unknown) (no (unknown) (unknown) Lorazepam 0 mg (units (unknown) date) 08/08/22 22:48 unknown) 08/08/22 23:00 (unknown) (no (unknown) (unknown) Lorazepam 2 Mg/Ml (units (unknown) date) Inj IV 2 mg unknown) (unknown) (no (unknown) (unknown) Lymph # (Auto) (units (unknown) date) 2600 unknown) (unknown) (no (unknown) (unknown) Lymph # (Auto) (units (unknown) date) 2800 unknown) (unknown) (no (unknown) (unknown) Lymph # (Auto) (units (unknown) date) unknown) (unknown) (no (unknown) (unknown) Lymph % (Auto) (units (unknown) date) 51.5 H unknown) (unknown) (no (unknown) (unknown) Lymph % (Auto) (units (unknown) date) 54.2 H unknown) (unknown) (no (unknown) (unknown) Lymph % (Auto) (units (unknown) date) unknown) (unknown) (no (unknown) (unknown) MAP 65, receiving (units (unknown) date) bolus unknown) (unknown) (no (unknown) (unknown) MCH 25.4 L (units (unk nown) date) unknown) (unknown) (no (unknown) (unknown) MCH 25.7 L (units (unk nown) date) unknown) (unknown) (no (unknown) (unknown) MCH (units (unkno wn) date) unknown) (unknown) (no (unknown) (unknown) MCHC 32.1 (units (unkn own) date) unknown) (unknown) (no (unknown) (unknown) MCHC 32.2 (units (unkn own) date) unknown) (unknown) (no (unknown) (unknown) MCHC (units (unkno wn) date) unknown) (unknown) (no (unknown) (unknown) MCV 79.0 L (units (unk nown) date) unknown) (unknown) (no (unknown) (unknown) MCV 80.2 (units (unkno wn) date) unknown) (unknown) (no (unknown) (unknown) MCV (units (unkno wn) date) unknown) (unknown) (no (unknown) (unknown) Magnesium 2.2 (units ( unknown) date) unknown) (unknown) (no (unknown) (unknown) Magnesium (units (unkn own) date) unknown) (unknown) (no (unknown) (unknown) Medications: (units (u nknown) date) unknown) (unknown) (no (unknown) (unknown) Yates # (Auto) 300 (units (unknown) date) unknown) (unknown) (no (unknown) (unknown) Yates # (Auto) 400 (units (unknown) date) unknown) (unknown) (no (unknown) (unknown) Yates # (Auto) (units ( unknown) date) unknown) (unknown) (no (unknown) (unknown) Yates % (Auto) 6.5 (units (unknown) date) unknown) (unknown) (no (unknown) (unknown) Yates % (Auto) 8.6 (units (unknown) date) unknown) (unknown) (no (unknown) (unknown) Yates % (Auto) (units ( unknown) date) unknown) (unknown) (no (unknown) (unknown) Narrative (units (unkn own) date) unknown) (unknown) (no (unknown) (unknown) Nausea And (units (unk nown) date) Vomiting unknown) (unknown) (no (unknown) (unknown) Neut # (Auto) 1900 (units (unknown) date) unknown) (unknown) (no (unknown) (unknown) Neut # (Auto) (units ( unknown) date) unknown) (unknown) (no (unknown) (unknown) Neut % (Auto) 36.6 (units (unknown) date) L unknown) (unknown) (no (unknown) (unknown) Neut % (Auto) 36.7 (units (unknown) date) L unknown) (unknown) (no (unknown) (unknown) Neut % (Auto) (units ( unknown) date) unknown) (unknown) (no (unknown) (unknown) No distress, (units (u nknown) date) sleeping in bed- on unknown) room air (unknown) (no (unknown) (unknown) Objective (units (unkn own) date) unknown) (unknown) (no (unknown) (unknown) Ondansetron 4 Mg/2 (units (unknown) date) Ml Inj IV 4 mg unknown) (unknown) (no (unknown) (unknown) Ondansetron HCl 4 (units (unknown) date) mg 08/08/22 22:48 unknown) 08/08/22 23:09 (unknown) (no (unknown) (unknown) Other (units (unkno wn) date) participants/roles: unknown) Bedside RN (unknown) (no (unknown) (unknown) Other: (units (unkno wn) date) unknown) (unknown) (no (unknown) (unknown) Oxygen Delivery (units (unknown) date) Method Room Air unknown) (unknown) (no (unknown) (unknown) Patient Location: (units (unknown) date) ICU unknown) (unknown) (no (unknown) (unknown) Patient admitted (units (unknown) date) for alcohol unknown) withdrawal. Precedex gtt turned off at 5 am- She (unknown) (no (unknown) (unknown) Patient has been (units (unknown) date) mildly hypotensive, unknown) but fluid responsive, Likely dehydration in (unknown) (no (unknown) (unknown) Patient: (units (unkno wn) date) Sarah Connors R unknown) MR#: M (unknown) (no (unknown) (unknown) Plan: (units (unkno wn) date) unknown) (unknown) (no (unknown) (unknown) Plt Count 332 (units ( unknown) date) unknown) (unknown) (no (unknown) (unknown) Plt Count 396 (units ( unknown) date) unknown) (unknown) (no (unknown) (unknown) Plt Count (units (unkn own) date) unknown) (unknown) (no (unknown) (unknown) Potassium 3.5 (units ( unknown) date) unknown) (unknown) (no (unknown) (unknown) Potassium 3.6 (units ( unknown) date) unknown) (unknown) (no (unknown) (unknown) Potassium (units (unkn own) date) unknown) (unknown) (no (unknown) (unknown) Precedex IV 0 (units ( unknown) date) mcg/kg/hr unknown) (unknown) (no (unknown) (unknown) Protocol (units (unkno wn) date) unknown) (unknown) (no (unknown) (unknown) Provider location (units (unknown) date) (State): [place] unknown) (unknown) (no (unknown) (unknown) Provider: (units (unkn own) date) Uyen Prince MD unknown) (unknown) (no (unknown) (unknown) Pulse Oximetry 95 (units (unknown) date) 95 unknown) (unknown) (no (unknown) (unknown) Pulse Oximetry 95 (units (unknown) date) 96 unknown) (unknown) (no (unknown) (unknown) Pulse Oximetry 95 (units (unknown) date) unknown) (unknown) (no (unknown) (unknown) Pulse Oximetry 96 (units (unknown) date) unknown) (unknown) (no (unknown) (unknown) Pulse Oximetry 97 (units (unknown) date) 96 unknown) (unknown) (no (unknown) (unknown) Pulse Oximetry 97 (units (unknown) date) unknown) (unknown) (no (unknown) (unknown) Pulse Oximetry 99 (units (unknown) date) 99 unknown) (unknown) (no (unknown) (unknown) Pulse Rate 69 72 (units (unknown) date) unknown) (unknown) (no (unknown) (unknown) Pulse Rate 71 (units ( unknown) date) unknown) (unknown) (no (unknown) (unknown) Pulse Rate 72 (units ( unknown) date) unknown) (unknown) (no (unknown) (unknown) Pulse Rate 75 69 (units (unknown) date) unknown) (unknown) (no (unknown) (unknown) Pulse Rate 75 75 (units (unknown) date) unknown) (unknown) (no (unknown) (unknown) Pulse Rate 75 78 (units (unknown) date) unknown) (unknown) (no (unknown) (unknown) Pulse Rate 75 (units ( unknown) date) unknown) (unknown) (no (unknown) (unknown) Pulse Rate 76 71 (units (unknown) date) unknown) (unknown) (no (unknown) (unknown) Pulse Rate 79 76 (units (unknown) date) unknown) (unknown) (no (unknown) (unknown) Q24H SANDY (units (unkno wn) date) Administration unknown) (unknown) (no (unknown) (unknown) Q6HR SANDY (units (unkno wn) date) Administration unknown) (unknown) (no (unknown) (unknown) Q8HR PRN (units (unkno wn) date) Administration unknown) (unknown) (no (unknown) (unknown) Quality TeleICU (units (unknown) date) unknown) (unknown) (no (unknown) (unknown) RBC 3.98 L (units (unk nown) date) unknown) (unknown) (no (unknown) (unknown) RBC 4.61 (units (unkno wn) date) unknown) (unknown) (no (unknown) (unknown) RBC (units (unkno wn) date) unknown) (unknown) (no (unknown) (unknown) RDW 19.5 H (units (unk nown) date) unknown) (unknown) (no (unknown) (unknown) RDW 19.7 H (units (unk nown) date) unknown) (unknown) (no (unknown) (unknown) RDW (units (unkno wn) date) unknown) (unknown) (no (unknown) (unknown) Respiratory Rate (units (unknown) date) 14 16 unknown) (unknown) (no (unknown) (unknown) Respiratory Rate (units (unknown) date) 16 16 unknown) (unknown) (no (unknown) (unknown) Respiratory Rate (units (unknown) date) 18 19 unknown) (unknown) (no (unknown) (unknown) Respiratory Rate (units (unknown) date) 18 unknown) (unknown) (no (unknown) (unknown) Respiratory Rate (units (unknown) date) 19 unknown) (unknown) (no (unknown) (unknown) Respiratory Rate (units (unknown) date) 21 20 unknown) (unknown) (no (unknown) (unknown) Respiratory Rate (units (unknown) date) 27 H unknown) (unknown) (no (unknown) (unknown) Respiratory Rate (units (unknown) date) 34 H 23 unknown) (unknown) (no (unknown) (unknown) Respiratory Rate (units (unknown) date) 37 H 16 unknown) (unknown) (no (unknown) (unknown) Respiratory Rate (units (unknown) date) 37 H unknown) (unknown) (no (unknown) (unknown) SARS-CoV-2 (PCR) (units (unknown) date) Negative unknown) (unknown) (no (unknown) (unknown) SARS-CoV-2 (PCR) (units (unknown) date) unknown) (unknown) (no (unknown) (unknown) She remains mildly (units (unknown) date) hypotensive and unknown) urine is estefany in color, she is being treated (unknown) (no (unknown) (unknown) Signed By: (units (unk nown) date) unknown) (unknown) (no (unknown) (unknown) Sodium 145 (units (unk nown) date) unknown) (unknown) (no (unknown) (unknown) Sodium 148 H D (units (unknown) date) unknown) (unknown) (no (unknown) (unknown) Sodium Chloride IV (units (unknown) date) 08/12/22 06:59 200 unknown) mls/hr (unknown) (no (unknown) (unknown) Sodium (units (unkno wn) date) unknown) (unknown) (no (unknown) (unknown) Started on (units (unk nown) date) ceftriaxone unknown) (unknown) (no (unknown) (unknown) Status: Acute (units ( unknown) date) unknown) (unknown) (no (unknown) (unknown) Subjective (units (unk nown) date) unknown) (unknown) (no (unknown) (unknown) TITRATE SANDY 0 (units ( unknown) date) mls/hr unknown) (unknown) (no (unknown) (unknown) Teleintensivist (units (unknown) date) Progress Note unknown) (unknown) (no (unknown) (unknown) Temperature 98.6 F (units (unknown) date) unknown) (unknown) (no (unknown) (unknown) Temperature (units (un known) date) unknown) (unknown) (no (unknown) (unknown) Titration (units (unkn own) date) unknown) (unknown) (no (unknown) (unknown) Total Bilirubin (units (unknown) date) 0.3 unknown) (unknown) (no (unknown) (unknown) Total Bilirubin (units (unknown) date) 0.4 unknown) (unknown) (no (unknown) (unknown) Total Bilirubin (units (unknown) date) unknown) (unknown) (no (unknown) (unknown) Total Protein 6.0 (units (unknown) date) L unknown) (unknown) (no (unknown) (unknown) Total Protein 7.7 (units (unknown) date) unknown) (unknown) (no (unknown) (unknown) Total Protein (units ( unknown) date) unknown) (unknown) (no (unknown) (unknown) Trade Name Freq (units (unknown) date) PRN Reason Stop unknown) Dose Admin (unknown) (no (unknown) (unknown) U Benzodiazepines (units (unknown) date) Scrn Positive H unknown) (unknown) (no (unknown) (unknown) U Benzodiazepines (units (unknown) date) Scrn unknown) (unknown) (no (unknown) (unknown) U Marijuana (THC) (units (unknown) date) Screen Negative unknown) (unknown) (no (unknown) (unknown) U Marijuana (THC) (units (unknown) date) Screen unknown) (unknown) (no (unknown) (unknown) U Methamphetamines (units (unknown) date) Scrn Negative unknown) (unknown) (no (unknown) (unknown) U Methamphetamines (units (unknown) date) Scrn unknown) (unknown) (no (unknown) (unknown) U Opiates 300ng/mL (units (unknown) date) cut Negative unknown) (unknown) (no (unknown) (unknown) U Opiates 300ng/mL (units (unknown) date) cut unknown) (unknown) (no (unknown) (unknown) U Tricyclic (units (un known) date) Antidepress unknown) Positive H (unknown) (no (unknown) (unknown) U Tricyclic (units (un known) date) Antidepress unknown) (unknown) (no (unknown) (unknown) UA +, urine estefany (units (unknown) date) colored c/f UTI unknown) (unknown) (no (unknown) (unknown) Unconjugated (units (u nknown) date) Bilirubin 0.0 unknown) (unknown) (no (unknown) (unknown) Unconjugated (units (u nknown) date) Bilirubin unknown) (unknown) (no (unknown) (unknown) Ur Amphetamines (units (unknown) date) Screen Negative unknown) (unknown) (no (unknown) (unknown) Ur Amphetamines (units (unknown) date) Screen unknown) (unknown) (no (unknown) (unknown) Ur Barbiturates (units (unknown) date) Screen Positive H unknown) (unknown) (no (unknown) (unknown) Ur Barbiturates (units (unknown) date) Screen unknown) (unknown) (no (unknown) (unknown) Ur Culture (units (unk nown) date) Indicated? Specimen unknown) cultured (unknown) (no (unknown) (unknown) Ur Culture (units (unk nown) date) Indicated? unknown) (unknown) (no (unknown) (unknown) Ur Leukocyte (units (u nknown) date) Esterase 1+ H unknown) (unknown) (no (unknown) (unknown) Ur Leukocyte (units (u nknown) date) Esterase unknown) (unknown) (no (unknown) (unknown) Ur MDMA Scrn (units (u nknown) date) (Ecstasy) Negative unknown) (unknown) (no (unknown) (unknown) Ur MDMA Scrn (units (u nknown) date) (Ecstasy) unknown) (unknown) (no (unknown) (unknown) Ur Oxycodone (units (u nknown) date) Screen Negative unknown) (unknown) (no (unknown) (unknown) Ur Oxycodone (units (u nknown) date) Screen unknown) (unknown) (no (unknown) (unknown) Ur Phencyclidine (units (unknown) date) Scrn Negative unknown) (unknown) (no (unknown) (unknown) Ur Phencyclidine (units (unknown) date) Scrn unknown) (unknown) (no (unknown) (unknown) Ur Specific (units (un known) date) [place] 1.015 unknown) (unknown) (no (unknown) (unknown) Ur Specific (units (un known) date) [place] unknown) (unknown) (no (unknown) (unknown) Urine Appearance (units (unknown) date) Clear unknown) (unknown) (no (unknown) (unknown) Urine Appearance (units (unknown) date) unknown) (unknown) (no (unknown) (unknown) Urine Bacteria (units (unknown) date) Many (>30) H unknown) (unknown) (no (unknown) (unknown) Urine Bacteria (units (unknown) date) unknown) (unknown) (no (unknown) (unknown) Urine Bilirubin (units (unknown) date) Negative unknown) (unknown) (no (unknown) (unknown) Urine Bilirubin (units (unknown) date) unknown) (unknown) (no (unknown) (unknown) Urine Cocaine (units ( unknown) date) Screen Negative unknown) (unknown) (no (unknown) (unknown) Urine Cocaine (units ( unknown) date) Screen unknown) (unknown) (no (unknown) (unknown) Urine Color Yellow (units (unknown) date) unknown) (unknown) (no (unknown) (unknown) Urine Color (units (un known) date) unknown) (unknown) (no (unknown) (unknown) Urine Glucose (UA) (units (unknown) date) Negative unknown) (unknown) (no (unknown) (unknown) Urine Glucose (UA) (units (unknown) date) unknown) (unknown) (no (unknown) (unknown) Urine Ketones (units ( unknown) date) Negative unknown) (unknown) (no (unknown) (unknown) Urine Ketones (units ( unknown) date) unknown) (unknown) (no (unknown) (unknown) Urine Methadone (units (unknown) date) Screen Negative unknown) (unknown) (no (unknown) (unknown) Urine Methadone (units (unknown) date) Screen unknown) (unknown) (no (unknown) (unknown) Urine Nitrate (units ( unknown) date) Positive H unknown) (unknown) (no (unknown) (unknown) Urine Nitrate (units ( unknown) date) unknown) (unknown) (no (unknown) (unknown) Urine Occult Blood (units (unknown) date) Negative unknown) (unknown) (no (unknown) (unknown) Urine Occult Blood (units (unknown) date) unknown) (unknown) (no (unknown) (unknown) Urine (units (unknown) date) Test Negative unknown) (unknown) (no (unknown) (unknown) Urine (units (unknown) date) Test unknown) (unknown) (no (unknown) (unknown) Urine Protein (units ( unknown) date) Negative unknown) (unknown) (no (unknown) (unknown) Urine Protein (units ( unknown) date) unknown) (unknown) (no (unknown) (unknown) Urine RBC None (units (unknown) date) seen unknown) (unknown) (no (unknown) (unknown) Urine RBC (units (unkn own) date) unknown) (unknown) (no (unknown) (unknown) Urine Urobilinogen (units (unknown) date) 0.2 unknown) (unknown) (no (unknown) (unknown) Urine Urobilinogen (units (unknown) date) unknown) (unknown) (no (unknown) (unknown) Urine WBC (units (unkn own) date) 10-30/hpf H unknown) (unknown) (no (unknown) (unknown) Urine WBC (units (unkn own) date) unknown) (unknown) (no (unknown) (unknown) Urine pH 6.0 (units (u nknown) date) unknown) (unknown) (no (unknown) (unknown) Urine pH (units (unkno wn) date) unknown) (unknown) (no (unknown) (unknown) VTE (units (unkno wn) date) unknown) (unknown) (no (unknown) (unknown) Visit Medications (units (unknown) date) (administered) unknown) (unknown) (no (unknown) (unknown) Vital Signs (units (un known) date) unknown) (unknown) (no (unknown) (unknown) WBC 5.1 (units (unkno wn) date) unknown) (unknown) (no (unknown) (unknown) WBC 5.2 (units (unkno wn) date) unknown) (unknown) (no (unknown) (unknown) WBC (units (unkno wn) date) unknown) (unknown) (no (unknown) (unknown) Will continue to (units (unknown) date) monitor volume unknown) responsiveness and potential need for pressors (unknown) (no (unknown) (unknown) [Embedded Image (units (unknown) date) Not Available] unknown) (unknown) (no (unknown) (unknown) [Rx Confirmed (units ( unknown) date) 08/01/22] unknown) (unknown) (no (unknown) (unknown) chlordiazepoxide (units (unknown) date) HCl 25 mg capsule unknown) See Rx Instructions .Route .COMPLEX #30 caps (unknown) (no (unknown) (unknown) communication: (units (unknown) date) Camera activated unknown) (unknown) (no (unknown) (unknown) dexmedeTOMIDine in (units (unknown) date) 0.9 % NaCL 400 mcg unknown) in 100 mls @ 2.699 mls/hr 08/08/22 22:48 (unknown) (no (unknown) (unknown) disulfiram 250 mg (units (unknown) date) tablet 250 mg PO unknown) DAILY #30 tabs 08/03/22 [Rx] (unknown) (no (unknown) (unknown) fluoxetine 10 mg (units (unknown) date) capsule 10 mg PO unknown) DAILY 07/13/22 [History Confirmed 08/01/22] (unknown) (no (unknown) (unknown) for UTI- Initially (units (unknown) date) recieved 1 L LR unknown) bolus and BP improved. Ordered another 1 L (unknown) (no (unknown) (unknown) hydroxyzine HCl 50 (units (unknown) date) mg tablet 50 mg PO unknown) DAILY 07/13/22 [History Confirmed (unknown) (no (unknown) (unknown) multivitamin with (units (unknown) date) folic acid 400 mcg unknown) tablet (Tab-A-Kael) 1 tab PO DAILY #30 tabs (unknown) (no (unknown) (unknown) pantoprazole 40 mg (units (unknown) date) tablet,delayed unknown) release 40 mg PO 0700 #30 tabs 07/14/22 [Rx (unknown) (no (unknown) (unknown) possibly component (units (unknown) date) of sepsis as well unknown) (unknown) (no (unknown) (unknown) quetiapine 300 mg (units (unknown) date) tablet 300 mg PO unknown) DAILY 07/13/22 [History Confirmed 08/01/22] (unknown) (no (unknown) (unknown) setting of acute (units (unknown) date) alcohol unknown) intoxication on admission (Etoh level >300) However (unknown) (no (unknown) (unknown) thiamine (units (unkno wn) date) mononitrate (vit unknown) B1) 100 mg tablet 100 mg PO DAILY #30 tabs 07/14/22 (unknown) (no (unknown) (unknown) was able to take (units (unknown) date) her PO librium unknown) (unknown) (no (unknown) (unknown) will order (units (unk nown) date) procalcitonin unknown) Result panel [id number] (unknown) (no (unknown) (unknown) (no value) (units (unk nown) date) unknown) (unknown) (no (unknown) (unknown) (1) Abnormal (units (u nknown) date) urinalysis: unknown) (unknown) (no (unknown) (unknown) (2) Alcohol (units (un known) date) intoxication: unknown) (unknown) (no (unknown) (unknown) (3) Alcohol (units (un known) date) withdrawal: unknown) (unknown) (no (unknown) (unknown) (past 8 hours): (units (unknown) date) unknown) (unknown) (no (unknown) (unknown) 0.2 MCG/KG/HR (units ( unknown) date) unknown) (unknown) (no (unknown) (unknown) [id number] (units (unkn own) date) unknown) (unknown) (no (unknown) (unknown) 01:00 08/09/22 (units (unknown) date) unknown) (unknown) (no (unknown) (unknown) 01:06 08/09/22 (units (unknown) date) unknown) (unknown) (no (unknown) (unknown) 01:06 (units (unkno wn) date) unknown) (unknown) (no (unknown) (unknown) 01:29 08/09/22 (units (unknown) date) unknown) (unknown) (no (unknown) (unknown) 01:29 (units (unkno wn) date) unknown) (unknown) (no (unknown) (unknown) 02:00 08/09/22 (units (unknown) date) unknown) (unknown) (no (unknown) (unknown) 07/14/22 [Rx (units (u nknown) date) Confirmed 08/01/22] unknown) (unknown) (no (unknown) (unknown) 08/01/22] (units (unkn own) date) unknown) (unknown) (no (unknown) (unknown) 08/03/22 [Rx] (units ( unknown) date) unknown) (unknown) (no (unknown) (unknown) 08/08/22 08/08/22 (units (unknown) date) 08/08/22 unknown) (unknown) (no (unknown) (unknown) 08/08/22 08/08/22 (units (unknown) date) 08/09/22 unknown) (unknown) (no (unknown) (unknown) 08/09/22 08/09/22 (units (unknown) date) 08/09/22 unknown) (unknown) (no (unknown) (unknown) 08/09/22 08/09/22 (units (unknown) date) unknown) (unknown) (no (unknown) (unknown) 08/09/22 04:16 (units (unknown) date) unknown) (unknown) (no (unknown) (unknown) 08/09/22 05:06 (units (unknown) date) unknown) (unknown) (no (unknown) (unknown) 08/09/22 (units (unkno wn) date) unknown) (unknown) (no (unknown) (unknown) 03:00 08/09/22 (units (unknown) date) unknown) (unknown) (no (unknown) (unknown) 03:00 (units (unkno wn) date) unknown) (unknown) (no (unknown) (unknown) 03:02 08/09/22 (units (unknown) date) unknown) (unknown) (no (unknown) (unknown) 03:02 (units (unkno wn) date) unknown) (unknown) (no (unknown) (unknown) 04:00 08/09/22 (units (unknown) date) unknown) (unknown) (no (unknown) (unknown) 04:16 04:16 04:30 (units (unknown) date) unknown) (unknown) (no (unknown) (unknown) 04:20 08/09/22 (units (unknown) date) unknown) (unknown) (no (unknown) (unknown) 04:20 (units (unkno wn) date) unknown) (unknown) (no (unknown) (unknown) 04:30 04:30 (units (un known) date) unknown) (unknown) (no (unknown) (unknown) 05:00 08/09/22 (units (unknown) date) unknown) (unknown) (no (unknown) (unknown) 05:00 (units (unkno wn) date) unknown) (unknown) (no (unknown) (unknown) 05:02 08/09/22 (units (unknown) date) unknown) (unknown) (no (unknown) (unknown) 05:20 08/09/22 (units (unknown) date) unknown) (unknown) (no (unknown) (unknown) 05:20 (units (unkno wn) date) unknown) (unknown) (no (unknown) (unknown) 05:34 08/09/22 (units (unknown) date) unknown) (unknown) (no (unknown) (unknown) 05:34 (units (unkno wn) date) unknown) (unknown) (no (unknown) (unknown) 06:00 08/09/22 (units (unknown) date) unknown) (unknown) (no (unknown) (unknown) 06:24 08/09/22 (units (unknown) date) unknown) (unknown) (no (unknown) (unknown) 06:24 (units (unkno wn) date) unknown) (unknown) (no (unknown) (unknown) 07:00 08/09/22 (units (unknown) date) unknown) (unknown) (no (unknown) (unknown) 07:00 (units (unkno wn) date) unknown) (unknown) (no (unknown) (unknown) 07:35 (units (unkno wn) date) unknown) (unknown) (no (unknown) (unknown) 21:00 21:00 21:00 (units (unknown) date) unknown) (unknown) (no (unknown) (unknown) 21:00 22:30 04:16 (units (unknown) date) unknown) (unknown) (no (unknown) (unknown) ALT 51 H (units (unkno wn) date) unknown) (unknown) (no (unknown) (unknown) ALT 64 H (units (unkno wn) date) unknown) (unknown) (no (unknown) (unknown) ALT (units (unkno wn) date) unknown) (unknown) (no (unknown) (unknown) AST 288 H (units (unkn own) date) unknown) (unknown) (no (unknown) (unknown) AST 424 H (units (unkn own) date) unknown) (unknown) (no (unknown) (unknown) AST (units (unkno wn) date) unknown) (unknown) (no (unknown) (unknown) Age/Sex: 31 / F (units (unknown) date) unknown) (unknown) (no (unknown) (unknown) Albumin 3.6 (units (un known) date) unknown) (unknown) (no (unknown) (unknown) Albumin 4.4 (units (un known) date) unknown) (unknown) (no (unknown) (unknown) Albumin (units (unkno wn) date) unknown) (unknown) (no (unknown) (unknown) Albumin/Globulin (units (unknown) date) Ratio 1.3 unknown) (unknown) (no (unknown) (unknown) Albumin/Globulin (units (unknown) date) Ratio 1.5 unknown) (unknown) (no (unknown) (unknown) Albumin/Globulin (units (unknown) date) Ratio unknown) (unknown) (no (unknown) (unknown) Alcohol Withdrawal (units (unknown) date) unknown) (unknown) (no (unknown) (unknown) Alkaline (units (unkno wn) date) Phosphatase 59 unknown) (unknown) (no (unknown) (unknown) Alkaline (units (unkno wn) date) Phosphatase 71 unknown) (unknown) (no (unknown) (unknown) Alkaline (units (unkno wn) date) Phosphatase unknown) (unknown) (no (unknown) (unknown) Assessment + Plan (units (unknown) date) unknown) (unknown) (no (unknown) (unknown) Assessment and (units (unknown) date) plan unknown) (unknown) (no (unknown) (unknown) BUN 7 (units (unkno wn) date) unknown) (unknown) (no (unknown) (unknown) BUN 8 (units (unkno wn) date) unknown) (unknown) (no (unknown) (unknown) BUN (units (unkno wn) date) unknown) (unknown) (no (unknown) (unknown) BUN/Creatinine (units (unknown) date) Ratio 8.9 unknown) (unknown) (no (unknown) (unknown) BUN/Creatinine (units (unknown) date) Ratio 9.2 unknown) (unknown) (no (unknown) (unknown) BUN/Creatinine (units (unknown) date) Ratio unknown) (unknown) (no (unknown) (unknown) Baso # (Auto) 100 (units (unknown) date) unknown) (unknown) (no (unknown) (unknown) Baso # (Auto) (units ( unknown) date) unknown) (unknown) (no (unknown) (unknown) Baso % (Auto) 1.9 (units (unknown) date) unknown) (unknown) (no (unknown) (unknown) Baso % (Auto) 2.5 (units (unknown) date) H unknown) (unknown) (no (unknown) (unknown) Baso % (Auto) (units ( unknown) date) unknown) (unknown) (no (unknown) (unknown) Blood Pressure (units (unknown) date) 73/40 L 75/39 L unknown) (unknown) (no (unknown) (unknown) Blood Pressure (units (unknown) date) 74/40 L unknown) (unknown) (no (unknown) (unknown) Blood Pressure (units (unknown) date) 77/42 L 80/45 L unknown) (unknown) (no (unknown) (unknown) Blood Pressure (units (unknown) date) 77/47 L unknown) (unknown) (no (unknown) (unknown) Blood Pressure (units (unknown) date) 78/43 L unknown) (unknown) (no (unknown) (unknown) Blood Pressure (units (unknown) date) 78/48 L unknown) (unknown) (no (unknown) (unknown) Blood Pressure (units (unknown) date) 80/44 L 79/43 L unknown) (unknown) (no (unknown) (unknown) Blood Pressure (units (unknown) date) 82/44 L 71/42 L unknown) (unknown) (no (unknown) (unknown) Blood Pressure (units (unknown) date) 86/53 L 83/50 L unknown) (unknown) (no (unknown) (unknown) CIWA protocol with (units (unknown) date) ativan unknown) (unknown) (no (unknown) (unknown) CIWAPRN PRN (units (un known) date) Administration unknown) (unknown) (no (unknown) (unknown) Calcium 7.7 L (units ( unknown) date) unknown) (unknown) (no (unknown) (unknown) Calcium 8.4 (units (un known) date) unknown) (unknown) (no (unknown) (unknown) Calcium (units (unkno wn) date) unknown) (unknown) (no (unknown) (unknown) Carbon Dioxide 30 (units (unknown) date) unknown) (unknown) (no (unknown) (unknown) Carbon Dioxide 33 (units (unknown) date) H unknown) (unknown) (no (unknown) (unknown) Carbon Dioxide (units (unknown) date) unknown) (unknown) (no (unknown) (unknown) Cardio (units (unkno wn) date) unknown) (unknown) (no (unknown) (unknown) Ceftriaxone Sodium (units (unknown) date) 1,000 mg/ 100 mls @ unknown) 200 mls/hr 08/09/22 07:00 08/09/22 (unknown) (no (unknown) (unknown) Check LA (units (unkno wn) date) unknown) (unknown) (no (unknown) (unknown) Chlordiazepoxide (units (unknown) date) 25 Mg Capsule PO 50 unknown) mg (unknown) (no (unknown) (unknown) Chlordiazepoxide (units (unknown) date) HCl 50 mg 08/09/22 unknown) 00:00 08/09/22 06:12 (unknown) (no (unknown) (unknown) Chloride 104 (units (u nknown) date) unknown) (unknown) (no (unknown) (unknown) Chloride 107 (units (u nknown) date) unknown) (unknown) (no (unknown) (unknown) Chloride (units (unkno wn) date) unknown) (unknown) (no (unknown) (unknown) Confirmed (units (unkn own) date) 08/01/22] unknown) (unknown) (no (unknown) (unknown) Conjugated (units (unk nown) date) Bilirubin 0.0 unknown) (unknown) (no (unknown) (unknown) Conjugated (units (unk nown) date) Bilirubin unknown) (unknown) (no (unknown) (unknown) Consent obtained (units (unknown) date) for unknown) 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: Yes (unknown) (no (unknown) (unknown) Continue IV (units (un known) date) fluids, MVI, unknown) Thiamine (unknown) (no (unknown) (unknown) Creatinine 0.76 (units (unknown) date) unknown) (unknown) (no (unknown) (unknown) Creatinine 0.90 (units (unknown) date) unknown) (unknown) (no (unknown) (unknown) Creatinine (units (unk nown) date) unknown) (unknown) (no (unknown) (unknown) Culture pending (units (unknown) date) unknown) (unknown) (no (unknown) (unknown) Current (units (unkno wn) date) Medications unknown) (unknown) (no (unknown) (unknown) : 1990 (units (unknown) date) Acct:[id number] unknown) (unknown) (no (unknown) (unknown) Date of Service: (units (unknown) date) 08/08/22 unknown) (unknown) (no (unknown) (unknown) Deep Vein (units (unkn own) date) Thrombosis/Pulmonar unknown) y Embolism Present on Admission: No (unknown) (no (unknown) (unknown) ETOH level high on (units (unknown) date) admission unknown) (unknown) (no (unknown) (unknown) Eos # (Auto) 0 (units (unknown) date) unknown) (unknown) (no (unknown) (unknown) Eos # (Auto) (units (u nknown) date) unknown) (unknown) (no (unknown) (unknown) Eos % (Auto) 0.7 L (units (unknown) date) unknown) (unknown) (no (unknown) (unknown) Eos % (Auto) 0.8 L (units (unknown) date) unknown) (unknown) (no (unknown) (unknown) Eos % (Auto) (units (u nknown) date) unknown) (unknown) (no (unknown) (unknown) Estimated GFR > 60 (units (unknown) date) unknown) (unknown) (no (unknown) (unknown) Estimated GFR (units ( unknown) date) unknown) (unknown) (no (unknown) (unknown) Ethyl Alcohol 393 (units (unknown) date) H unknown) (unknown) (no (unknown) (unknown) Ethyl Alcohol (units ( unknown) date) unknown) (unknown) (no (unknown) (unknown) Exam Narrative: (units (unknown) date) unknown) (unknown) (no (unknown) (unknown) Exam (units (unkno wn) date) unknown) (unknown) (no (unknown) (unknown) Generic Name Dose (units (unknown) date) Route Start Last unknown) Admin (unknown) (no (unknown) (unknown) Globulin 2.4 (units (u nknown) date) unknown) (unknown) (no (unknown) (unknown) Globulin 3.3 (units (u nknown) date) unknown) (unknown) (no (unknown) (unknown) Globulin (units (unkno wn) date) unknown) (unknown) (no (unknown) (unknown) Glucose 84 (units (unk nown) date) unknown) (unknown) (no (unknown) (unknown) Glucose 92 (units (unk nown) date) unknown) (unknown) (no (unknown) (unknown) Glucose (units (unkno wn) date) unknown) (unknown) (no (unknown) (unknown) Hct 31.4 L (units (unk nown) date) unknown) (unknown) (no (unknown) (unknown) Hct 37.0 (units (unkno wn) date) unknown) (unknown) (no (unknown) (unknown) Hct (units (unkno wn) date) unknown) (unknown) (no (unknown) (unknown) Hgb 10.1 L (units (unk nown) date) unknown) (unknown) (no (unknown) (unknown) Hgb 11.9 L (units (unk nown) date) unknown) (unknown) (no (unknown) (unknown) Hgb (units (unkno wn) date) unknown) (unknown) (no (unknown) (unknown) Home Medications (units (unknown) date) unknown) (unknown) (no (unknown) (unknown) IF CAMERA (units (unkn own) date) ACTIVATED, patient unknown) seen via real-time interactive audiovisual (unknown) (no (unknown) (unknown) Interval history: (units (unknown) date) unknown) (unknown) (no (unknown) (unknown) [facility] (units (unknown) date) [address] unknown) [place] [id number] (unknown) (no (unknown) (unknown) LR this am after (units (unknown) date) BP 80's/40's unknown) (unknown) (no (unknown) (unknown) Laboratory Results (units (unknown) date) - last 24 hr unknown) (unknown) (no (unknown) (unknown) Labs (units (unkno wn) date) unknown) (unknown) (no (unknown) (unknown) Labs: (units (unkno wn) date) unknown) (unknown) (no (unknown) (unknown) Lipase 408 H (units (u nknown) date) unknown) (unknown) (no (unknown) (unknown) Lipase (units (unkno wn) date) unknown) (unknown) (no (unknown) (unknown) Lorazepam 0 mg (units (unknown) date) 08/08/22 22:48 unknown) 08/08/22 23:00 (unknown) (no (unknown) (unknown) Lorazepam 2 Mg/Ml (units (unknown) date) Inj IV 2 mg unknown) (unknown) (no (unknown) (unknown) Lymph # (Auto) (units (unknown) date) 2600 unknown) (unknown) (no (unknown) (unknown) Lymph # (Auto) (units (unknown) date) 2800 unknown) (unknown) (no (unknown) (unknown) Lymph # (Auto) (units (unknown) date) unknown) (unknown) (no (unknown) (unknown) Lymph % (Auto) (units (unknown) date) 51.5 H unknown) (unknown) (no (unknown) (unknown) Lymph % (Auto) (units (unknown) date) 54.2 H unknown) (unknown) (no (unknown) (unknown) Lymph % (Auto) (units (unknown) date) unknown) (unknown) (no (unknown) (unknown) MAP 65, receiving (units (unknown) date) bolus unknown) (unknown) (no (unknown) (unknown) MCH 25.4 L (units (unk nown) date) unknown) (unknown) (no (unknown) (unknown) MCH 25.7 L (units (unk nown) date) unknown) (unknown) (no (unknown) (unknown) MCH (units (unkno wn) date) unknown) (unknown) (no (unknown) (unknown) MCHC 32.1 (units (unkn own) date) unknown) (unknown) (no (unknown) (unknown) MCHC 32.2 (units (unkn own) date) unknown) (unknown) (no (unknown) (unknown) MCHC (units (unkno wn) date) unknown) (unknown) (no (unknown) (unknown) MCV 79.0 L (units (unk nown) date) unknown) (unknown) (no (unknown) (unknown) MCV 80.2 (units (unkno wn) date) unknown) (unknown) (no (unknown) (unknown) MCV (units (unkno wn) date) unknown) (unknown) (no (unknown) (unknown) Magnesium 2.2 (units ( unknown) date) unknown) (unknown) (no (unknown) (unknown) Magnesium (units (unkn own) date) unknown) (unknown) (no (unknown) (unknown) Medications: (units (u nknown) date) unknown) (unknown) (no (unknown) (unknown) Yates # (Auto) 300 (units (unknown) date) unknown) (unknown) (no (unknown) (unknown) Yates # (Auto) 400 (units (unknown) date) unknown) (unknown) (no (unknown) (unknown) Yates # (Auto) (units ( unknown) date) unknown) (unknown) (no (unknown) (unknown) Yates % (Auto) 6.5 (units (unknown) date) unknown) (unknown) (no (unknown) (unknown) Yates % (Auto) 8.6 (units (unknown) date) unknown) (unknown) (no (unknown) (unknown) Yates % (Auto) (units ( unknown) date) unknown) (unknown) (no (unknown) (unknown) Narrative (units (unkn own) date) unknown) (unknown) (no (unknown) (unknown) Nausea And (units (unk nown) date) Vomiting unknown) (unknown) (no (unknown) (unknown) Neut # (Auto) 1900 (units (unknown) date) unknown) (unknown) (no (unknown) (unknown) Neut # (Auto) (units ( unknown) date) unknown) (unknown) (no (unknown) (unknown) Neut % (Auto) 36.6 (units (unknown) date) L unknown) (unknown) (no (unknown) (unknown) Neut % (Auto) 36.7 (units (unknown) date) L unknown) (unknown) (no (unknown) (unknown) Neut % (Auto) (units ( unknown) date) unknown) (unknown) (no (unknown) (unknown) No distress, (units (u nknown) date) sleeping in bed- on unknown) room air (unknown) (no (unknown) (unknown) Objective (units (unkn own) date) unknown) (unknown) (no (unknown) (unknown) Ondansetron 4 Mg/2 (units (unknown) date) Ml Inj IV 4 mg unknown) (unknown) (no (unknown) (unknown) Ondansetron HCl 4 (units (unknown) date) mg 08/08/22 22:48 unknown) 08/08/22 23:09 (unknown) (no (unknown) (unknown) Other (units (unkno wn) date) participants/roles: unknown) Bedside RN (unknown) (no (unknown) (unknown) Other: (units (unkno wn) date) unknown) (unknown) (no (unknown) (unknown) Oxygen Delivery (units (unknown) date) Method Room Air unknown) (unknown) (no (unknown) (unknown) Patient Location: (units (unknown) date) ICU unknown) (unknown) (no (unknown) (unknown) Patient admitted (units (unknown) date) for alcohol unknown) withdrawal. Precedex gtt turned off at 5 am- She (unknown) (no (unknown) (unknown) Patient has been (units (unknown) date) mildly hypotensive, unknown) but fluid responsive, Likely dehydration in (unknown) (no (unknown) (unknown) Patient: (units (unkno wn) date) Sarah Connors R unknown) MR#: M (unknown) (no (unknown) (unknown) Plan: (units (unkno wn) date) unknown) (unknown) (no (unknown) (unknown) Plt Count 332 (units ( unknown) date) unknown) (unknown) (no (unknown) (unknown) Plt Count 396 (units ( unknown) date) unknown) (unknown) (no (unknown) (unknown) Plt Count (units (unkn own) date) unknown) (unknown) (no (unknown) (unknown) Potassium 3.5 (units ( unknown) date) unknown) (unknown) (no (unknown) (unknown) Potassium 3.6 (units ( unknown) date) unknown) (unknown) (no (unknown) (unknown) Potassium (units (unkn own) date) unknown) (unknown) (no (unknown) (unknown) Precedex IV 0 (units ( unknown) date) mcg/kg/hr unknown) (unknown) (no (unknown) (unknown) Precedex gtt (units (u nknown) date) currently off, will unknown) continue to monitor need for precedex gtt (unknown) (no (unknown) (unknown) Protocol (units (unkno wn) date) unknown) (unknown) (no (unknown) (unknown) Provider location (units (unknown) date) (State): [place] unknown) (unknown) (no (unknown) (unknown) Provider: (units (unkn own) date) Uyen Prince MD unknown) (unknown) (no (unknown) (unknown) Pulse Oximetry 95 (units (unknown) date) 95 unknown) (unknown) (no (unknown) (unknown) Pulse Oximetry 95 (units (unknown) date) 96 unknown) (unknown) (no (unknown) (unknown) Pulse Oximetry 95 (units (unknown) date) unknown) (unknown) (no (unknown) (unknown) Pulse Oximetry 96 (units (unknown) date) unknown) (unknown) (no (unknown) (unknown) Pulse Oximetry 97 (units (unknown) date) 96 unknown) (unknown) (no (unknown) (unknown) Pulse Oximetry 97 (units (unknown) date) unknown) (unknown) (no (unknown) (unknown) Pulse Oximetry 99 (units (unknown) date) 99 unknown) (unknown) (no (unknown) (unknown) Pulse Rate 69 72 (units (unknown) date) unknown) (unknown) (no (unknown) (unknown) Pulse Rate 71 (units ( unknown) date) unknown) (unknown) (no (unknown) (unknown) Pulse Rate 72 (units ( unknown) date) unknown) (unknown) (no (unknown) (unknown) Pulse Rate 75 69 (units (unknown) date) unknown) (unknown) (no (unknown) (unknown) Pulse Rate 75 75 (units (unknown) date) unknown) (unknown) (no (unknown) (unknown) Pulse Rate 75 78 (units (unknown) date) unknown) (unknown) (no (unknown) (unknown) Pulse Rate 75 (units ( unknown) date) unknown) (unknown) (no (unknown) (unknown) Pulse Rate 76 71 (units (unknown) date) unknown) (unknown) (no (unknown) (unknown) Pulse Rate 79 76 (units (unknown) date) unknown) (unknown) (no (unknown) (unknown) Q24H SANDY (units (unkno wn) date) Administration unknown) (unknown) (no (unknown) (unknown) Q6HR SANDY (units (unkno wn) date) Administration unknown) (unknown) (no (unknown) (unknown) Q8HR PRN (units (unkno wn) date) Administration unknown) (unknown) (no (unknown) (unknown) Quality TeleICU (units (unknown) date) unknown) (unknown) (no (unknown) (unknown) RBC 3.98 L (units (unk nown) date) unknown) (unknown) (no (unknown) (unknown) RBC 4.61 (units (unkno wn) date) unknown) (unknown) (no (unknown) (unknown) RBC (units (unkno wn) date) unknown) (unknown) (no (unknown) (unknown) RDW 19.5 H (units (unk nown) date) unknown) (unknown) (no (unknown) (unknown) RDW 19.7 H (units (unk nown) date) unknown) (unknown) (no (unknown) (unknown) RDW (units (unkno wn) date) unknown) (unknown) (no (unknown) (unknown) Respiratory Rate (units (unknown) date) 14 16 unknown) (unknown) (no (unknown) (unknown) Respiratory Rate (units (unknown) date) 16 16 unknown) (unknown) (no (unknown) (unknown) Respiratory Rate (units (unknown) date) 18 19 unknown) (unknown) (no (unknown) (unknown) Respiratory Rate (units (unknown) date) 18 unknown) (unknown) (no (unknown) (unknown) Respiratory Rate (units (unknown) date) 19 unknown) (unknown) (no (unknown) (unknown) Respiratory Rate (units (unknown) date) 21 20 unknown) (unknown) (no (unknown) (unknown) Respiratory Rate (units (unknown) date) 27 H unknown) (unknown) (no (unknown) (unknown) Respiratory Rate (units (unknown) date) 34 H 23 unknown) (unknown) (no (unknown) (unknown) Respiratory Rate (units (unknown) date) 37 H 16 unknown) (unknown) (no (unknown) (unknown) Respiratory Rate (units (unknown) date) 37 H unknown) (unknown) (no (unknown) (unknown) SARS-CoV-2 (PCR) (units (unknown) date) Negative unknown) (unknown) (no (unknown) (unknown) SARS-CoV-2 (PCR) (units (unknown) date) unknown) (unknown) (no (unknown) (unknown) She remains mildly (units (unknown) date) hypotensive and unknown) urine is estefany in color, she is being treated (unknown) (no (unknown) (unknown) Signed By: (units (unk nown) date) unknown) (unknown) (no (unknown) (unknown) Sodium 145 (units (unk nown) date) unknown) (unknown) (no (unknown) (unknown) Sodium 148 H D (units (unknown) date) unknown) (unknown) (no (unknown) (unknown) Sodium Chloride IV (units (unknown) date) 08/12/22 06:59 200 unknown) mls/hr (unknown) (no (unknown) (unknown) Sodium (units (unkno wn) date) unknown) (unknown) (no (unknown) (unknown) Started on (units (unk nown) date) ceftriaxone unknown) (unknown) (no (unknown) (unknown) Status: Acute (units ( unknown) date) unknown) (unknown) (no (unknown) (unknown) Subjective (units (unk nown) date) unknown) (unknown) (no (unknown) (unknown) TITRATE SANDY 0 (units ( unknown) date) mls/hr unknown) (unknown) (no (unknown) (unknown) Teleintensivist (units (unknown) date) Progress Note unknown) (unknown) (no (unknown) (unknown) Temperature 98.6 F (units (unknown) date) unknown) (unknown) (no (unknown) (unknown) Temperature (units (un known) date) unknown) (unknown) (no (unknown) (unknown) Titration (units (unkn own) date) unknown) (unknown) (no (unknown) (unknown) Total Bilirubin (units (unknown) date) 0.3 unknown) (unknown) (no (unknown) (unknown) Total Bilirubin (units (unknown) date) 0.4 unknown) (unknown) (no (unknown) (unknown) Total Bilirubin (units (unknown) date) unknown) (unknown) (no (unknown) (unknown) Total Protein 6.0 (units (unknown) date) L unknown) (unknown) (no (unknown) (unknown) Total Protein 7.7 (units (unknown) date) unknown) (unknown) (no (unknown) (unknown) Total Protein (units ( unknown) date) unknown) (unknown) (no (unknown) (unknown) Trade Name Freq (units (unknown) date) PRN Reason Stop unknown) Dose Admin (unknown) (no (unknown) (unknown) U Benzodiazepines (units (unknown) date) Scrn Positive H unknown) (unknown) (no (unknown) (unknown) U Benzodiazepines (units (unknown) date) Scrn unknown) (unknown) (no (unknown) (unknown) U Marijuana (THC) (units (unknown) date) Screen Negative unknown) (unknown) (no (unknown) (unknown) U Marijuana (THC) (units (unknown) date) Screen unknown) (unknown) (no (unknown) (unknown) U Methamphetamines (units (unknown) date) Scrn Negative unknown) (unknown) (no (unknown) (unknown) U Methamphetamines (units (unknown) date) Scrn unknown) (unknown) (no (unknown) (unknown) U Opiates 300ng/mL (units (unknown) date) cut Negative unknown) (unknown) (no (unknown) (unknown) U Opiates 300ng/mL (units (unknown) date) cut unknown) (unknown) (no (unknown) (unknown) U Tricyclic (units (un known) date) Antidepress unknown) Positive H (unknown) (no (unknown) (unknown) U Tricyclic (units (un known) date) Antidepress unknown) (unknown) (no (unknown) (unknown) UA +, urine estefany (units (unknown) date) colored c/f UTI unknown) (unknown) (no (unknown) (unknown) Unconjugated (units (u nknown) date) Bilirubin 0.0 unknown) (unknown) (no (unknown) (unknown) Unconjugated (units (u nknown) date) Bilirubin unknown) (unknown) (no (unknown) (unknown) Ur Amphetamines (units (unknown) date) Screen Negative unknown) (unknown) (no (unknown) (unknown) Ur Amphetamines (units (unknown) date) Screen unknown) (unknown) (no (unknown) (unknown) Ur Barbiturates (units (unknown) date) Screen Positive H unknown) (unknown) (no (unknown) (unknown) Ur Barbiturates (units (unknown) date) Screen unknown) (unknown) (no (unknown) (unknown) Ur Culture (units (unk nown) date) Indicated? Specimen unknown) cultured (unknown) (no (unknown) (unknown) Ur Culture (units (unk nown) date) Indicated? unknown) (unknown) (no (unknown) (unknown) Ur Leukocyte (units (u nknown) date) Esterase 1+ H unknown) (unknown) (no (unknown) (unknown) Ur Leukocyte (units (u nknown) date) Esterase unknown) (unknown) (no (unknown) (unknown) Ur MDMA Scrn (units (u nknown) date) (Ecstasy) Negative unknown) (unknown) (no (unknown) (unknown) Ur MDMA Scrn (units (u nknown) date) (Ecstasy) unknown) (unknown) (no (unknown) (unknown) Ur Oxycodone (units (u nknown) date) Screen Negative unknown) (unknown) (no (unknown) (unknown) Ur Oxycodone (units (u nknown) date) Screen unknown) (unknown) (no (unknown) (unknown) Ur Phencyclidine (units (unknown) date) Scrn Negative unknown) (unknown) (no (unknown) (unknown) Ur Phencyclidine (units (unknown) date) Scrn unknown) (unknown) (no (unknown) (unknown) Ur Specific (units (un known) date) [place] 1.015 unknown) (unknown) (no (unknown) (unknown) Ur Specific (units (un known) date) [place] unknown) (unknown) (no (unknown) (unknown) Urine Appearance (units (unknown) date) Clear unknown) (unknown) (no (unknown) (unknown) Urine Appearance (units (unknown) date) unknown) (unknown) (no (unknown) (unknown) Urine Bacteria (units (unknown) date) Many (>30) H unknown) (unknown) (no (unknown) (unknown) Urine Bacteria (units (unknown) date) unknown) (unknown) (no (unknown) (unknown) Urine Bilirubin (units (unknown) date) Negative unknown) (unknown) (no (unknown) (unknown) Urine Bilirubin (units (unknown) date) unknown) (unknown) (no (unknown) (unknown) Urine Cocaine (units ( unknown) date) Screen Negative unknown) (unknown) (no (unknown) (unknown) Urine Cocaine (units ( unknown) date) Screen unknown) (unknown) (no (unknown) (unknown) Urine Color Yellow (units (unknown) date) unknown) (unknown) (no (unknown) (unknown) Urine Color (units (un known) date) unknown) (unknown) (no (unknown) (unknown) Urine Glucose (UA) (units (unknown) date) Negative unknown) (unknown) (no (unknown) (unknown) Urine Glucose (UA) (units (unknown) date) unknown) (unknown) (no (unknown) (unknown) Urine Ketones (units ( unknown) date) Negative unknown) (unknown) (no (unknown) (unknown) Urine Ketones (units ( unknown) date) unknown) (unknown) (no (unknown) (unknown) Urine Methadone (units (unknown) date) Screen Negative unknown) (unknown) (no (unknown) (unknown) Urine Methadone (units (unknown) date) Screen unknown) (unknown) (no (unknown) (unknown) Urine Nitrate (units ( unknown) date) Positive H unknown) (unknown) (no (unknown) (unknown) Urine Nitrate (units ( unknown) date) unknown) (unknown) (no (unknown) (unknown) Urine Occult Blood (units (unknown) date) Negative unknown) (unknown) (no (unknown) (unknown) Urine Occult Blood (units (unknown) date) unknown) (unknown) (no (unknown) (unknown) Urine (units (unknown) date) Test Negative unknown) (unknown) (no (unknown) (unknown) Urine (units (unknown) date) Test unknown) (unknown) (no (unknown) (unknown) Urine Protein (units ( unknown) date) Negative unknown) (unknown) (no (unknown) (unknown) Urine Protein (units ( unknown) date) unknown) (unknown) (no (unknown) (unknown) Urine RBC None (units (unknown) date) seen unknown) (unknown) (no (unknown) (unknown) Urine RBC (units (unkn own) date) unknown) (unknown) (no (unknown) (unknown) Urine Urobilinogen (units (unknown) date) 0.2 unknown) (unknown) (no (unknown) (unknown) Urine Urobilinogen (units (unknown) date) unknown) (unknown) (no (unknown) (unknown) Urine WBC (units (unkn own) date) 10-30/hpf H unknown) (unknown) (no (unknown) (unknown) Urine WBC (units (unkn own) date) unknown) (unknown) (no (unknown) (unknown) Urine pH 6.0 (units (u nknown) date) unknown) (unknown) (no (unknown) (unknown) Urine pH (units (unkno wn) date) unknown) (unknown) (no (unknown) (unknown) VTE (units (unkno wn) date) unknown) (unknown) (no (unknown) (unknown) Visit Medications (units (unknown) date) (administered) unknown) (unknown) (no (unknown) (unknown) Vital Signs (units (un known) date) unknown) (unknown) (no (unknown) (unknown) WBC 5.1 (units (unkno wn) date) unknown) (unknown) (no (unknown) (unknown) WBC 5.2 (units (unkno wn) date) unknown) (unknown) (no (unknown) (unknown) WBC (units (unkno wn) date) unknown) (unknown) (no (unknown) (unknown) Will continue to (units (unknown) date) monitor volume unknown) responsiveness and potential need for pressors (unknown) (no (unknown) (unknown) [Embedded Image (units (unknown) date) Not Available] unknown) (unknown) (no (unknown) (unknown) [Rx Confirmed (units ( unknown) date) 08/01/22] unknown) (unknown) (no (unknown) (unknown) chlordiazepoxide (units (unknown) date) HCl 25 mg capsule unknown) See Rx Instructions .Route .COMPLEX #30 caps (unknown) (no (unknown) (unknown) communication: (units (unknown) date) Camera activated unknown) (unknown) (no (unknown) (unknown) dexmedeTOMIDine in (units (unknown) date) 0.9 % NaCL 400 mcg unknown) in 100 mls @ 2.699 mls/hr 08/08/22 22:48 (unknown) (no (unknown) (unknown) disulfiram 250 mg (units (unknown) date) tablet 250 mg PO unknown) DAILY #30 tabs 08/03/22 [Rx] (unknown) (no (unknown) (unknown) fluoxetine 10 mg (units (unknown) date) capsule 10 mg PO unknown) DAILY 07/13/22 [History Confirmed 08/01/22] (unknown) (no (unknown) (unknown) for UTI- Initially (units (unknown) date) recieved 1 L LR unknown) bolus and BP improved. Ordered another 1 L (unknown) (no (unknown) (unknown) hydroxyzine HCl 50 (units (unknown) date) mg tablet 50 mg PO unknown) DAILY 07/13/22 [History Confirmed (unknown) (no (unknown) (unknown) librium PO (units (unk nown) date) unknown) (unknown) (no (unknown) (unknown) multivitamin with (units (unknown) date) folic acid 400 mcg unknown) tablet (Tab-A-Kael) 1 tab PO DAILY #30 tabs (unknown) (no (unknown) (unknown) pantoprazole 40 mg (units (unknown) date) tablet,delayed unknown) release 40 mg PO 0700 #30 tabs 07/14/22 [Rx (unknown) (no (unknown) (unknown) possibly component (units (unknown) date) of sepsis as well unknown) (unknown) (no (unknown) (unknown) quetiapine 300 mg (units (unknown) date) tablet 300 mg PO unknown) DAILY 07/13/22 [History Confirmed 08/01/22] (unknown) (no (unknown) (unknown) setting of acute (units (unknown) date) alcohol unknown) intoxication on admission (Etoh level >300) However (unknown) (no (unknown) (unknown) thiamine (units (unkno wn) date) mononitrate (vit unknown) B1) 100 mg tablet 100 mg PO DAILY #30 tabs 07/14/22 (unknown) (no (unknown) (unknown) was able to take (units (unknown) date) her PO librium unknown) (unknown) (no (unknown) (unknown) will order (units (unk nown) date) procalcitonin unknown) Result panel [id number] (unknown) (no (unknown) (unknown) (no value) (units (unk nown) date) unknown) (unknown) (no (unknown) (unknown) (1) Abnormal (units (u nknown) date) urinalysis: unknown) (unknown) (no (unknown) (unknown) (2) Alcohol (units (un known) date) intoxication: unknown) (unknown) (no (unknown) (unknown) (3) Alcohol (units (un known) date) withdrawal: unknown) (unknown) (no (unknown) (unknown) (past 8 hours): (units (unknown) date) unknown) (unknown) (no (unknown) (unknown) 0.2 MCG/KG/HR (units ( unknown) date) unknown) (unknown) (no (unknown) (unknown) [id number] (units (unkn own) date) unknown) (unknown) (no (unknown) (unknown) 01:00 08/09/22 (units (unknown) date) unknown) (unknown) (no (unknown) (unknown) 01:06 08/09/22 (units (unknown) date) unknown) (unknown) (no (unknown) (unknown) 01:06 (units (unkno wn) date) unknown) (unknown) (no (unknown) (unknown) 01:29 08/09/22 (units (unknown) date) unknown) (unknown) (no (unknown) (unknown) 01:29 (units (unkno wn) date) unknown) (unknown) (no (unknown) (unknown) 02:00 08/09/22 (units (unknown) date) unknown) (unknown) (no (unknown) (unknown) 07/14/22 [Rx (units (u nknown) date) Confirmed 08/01/22] unknown) (unknown) (no (unknown) (unknown) 08/01/22] (units (unkn own) date) unknown) (unknown) (no (unknown) (unknown) 08/03/22 [Rx] (units ( unknown) date) unknown) (unknown) (no (unknown) (unknown) 08/08/22 08/08/22 (units (unknown) date) 08/08/22 unknown) (unknown) (no (unknown) (unknown) 08/08/22 08/08/22 (units (unknown) date) 08/09/22 unknown) (unknown) (no (unknown) (unknown) 08/09/22 08/09/22 (units (unknown) date) 08/09/22 unknown) (unknown) (no (unknown) (unknown) 08/09/22 08/09/22 (units (unknown) date) unknown) (unknown) (no (unknown) (unknown) 08/09/22 04:16 (units (unknown) date) unknown) (unknown) (no (unknown) (unknown) 08/09/22 05:06 (units (unknown) date) unknown) (unknown) (no (unknown) (unknown) 08/09/22 (units (unkno wn) date) unknown) (unknown) (no (unknown) (unknown) 03:00 08/09/22 (units (unknown) date) unknown) (unknown) (no (unknown) (unknown) 03:00 (units (unkno wn) date) unknown) (unknown) (no (unknown) (unknown) 03:02 08/09/22 (units (unknown) date) unknown) (unknown) (no (unknown) (unknown) 03:02 (units (unkno wn) date) unknown) (unknown) (no (unknown) (unknown) 04:00 08/09/22 (units (unknown) date) unknown) (unknown) (no (unknown) (unknown) 04:16 04:16 04:30 (units (unknown) date) unknown) (unknown) (no (unknown) (unknown) 04:20 08/09/22 (units (unknown) date) unknown) (unknown) (no (unknown) (unknown) 04:20 (units (unkno wn) date) unknown) (unknown) (no (unknown) (unknown) 04:30 04:30 (units (un known) date) unknown) (unknown) (no (unknown) (unknown) 05:00 08/09/22 (units (unknown) date) unknown) (unknown) (no (unknown) (unknown) 05:00 (units (unkno wn) date) unknown) (unknown) (no (unknown) (unknown) 05:02 08/09/22 (units (unknown) date) unknown) (unknown) (no (unknown) (unknown) 05:20 08/09/22 (units (unknown) date) unknown) (unknown) (no (unknown) (unknown) 05:20 (units (unkno wn) date) unknown) (unknown) (no (unknown) (unknown) 05:34 08/09/22 (units (unknown) date) unknown) (unknown) (no (unknown) (unknown) 05:34 (units (unkno wn) date) unknown) (unknown) (no (unknown) (unknown) 06:00 08/09/22 (units (unknown) date) unknown) (unknown) (no (unknown) (unknown) 06:24 08/09/22 (units (unknown) date) unknown) (unknown) (no (unknown) (unknown) 06:24 (units (unkno wn) date) unknown) (unknown) (no (unknown) (unknown) 07:00 08/09/22 (units (unknown) date) unknown) (unknown) (no (unknown) (unknown) 07:00 (units (unkno wn) date) unknown) (unknown) (no (unknown) (unknown) 07:35 (units (unkno wn) date) unknown) (unknown) (no (unknown) (unknown) 21:00 21:00 21:00 (units (unknown) date) unknown) (unknown) (no (unknown) (unknown) 21:00 22:30 04:16 (units (unknown) date) unknown) (unknown) (no (unknown) (unknown) ALT 51 H (units (unkno wn) date) unknown) (unknown) (no (unknown) (unknown) ALT 64 H (units (unkno wn) date) unknown) (unknown) (no (unknown) (unknown) ALT (units (unkno wn) date) unknown) (unknown) (no (unknown) (unknown) AST 288 H (units (unkn own) date) unknown) (unknown) (no (unknown) (unknown) AST 424 H (units (unkn own) date) unknown) (unknown) (no (unknown) (unknown) AST (units (unkno wn) date) unknown) (unknown) (no (unknown) (unknown) Age/Sex: 31 / F (units (unknown) date) unknown) (unknown) (no (unknown) (unknown) Albumin 3.6 (units (un known) date) unknown) (unknown) (no (unknown) (unknown) Albumin 4.4 (units (un known) date) unknown) (unknown) (no (unknown) (unknown) Albumin (units (unkno wn) date) unknown) (unknown) (no (unknown) (unknown) Albumin/Globulin (units (unknown) date) Ratio 1.3 unknown) (unknown) (no (unknown) (unknown) Albumin/Globulin (units (unknown) date) Ratio 1.5 unknown) (unknown) (no (unknown) (unknown) Albumin/Globulin (units (unknown) date) Ratio unknown) (unknown) (no (unknown) (unknown) Alcohol Withdrawal (units (unknown) date) unknown) (unknown) (no (unknown) (unknown) Alkaline (units (unkno wn) date) Phosphatase 59 unknown) (unknown) (no (unknown) (unknown) Alkaline (units (unkno wn) date) Phosphatase 71 unknown) (unknown) (no (unknown) (unknown) Alkaline (units (unkno wn) date) Phosphatase unknown) (unknown) (no (unknown) (unknown) Assessment + Plan (units (unknown) date) narrative: unknown) (unknown) (no (unknown) (unknown) Assessment + Plan (units (unknown) date) unknown) (unknown) (no (unknown) (unknown) Assessment and (units (unknown) date) plan unknown) (unknown) (no (unknown) (unknown) BUN 7 (units (unkno wn) date) unknown) (unknown) (no (unknown) (unknown) BUN 8 (units (unkno wn) date) unknown) (unknown) (no (unknown) (unknown) BUN (units (unkno wn) date) unknown) (unknown) (no (unknown) (unknown) BUN/Creatinine (units (unknown) date) Ratio 8.9 unknown) (unknown) (no (unknown) (unknown) BUN/Creatinine (units (unknown) date) Ratio 9.2 unknown) (unknown) (no (unknown) (unknown) BUN/Creatinine (units (unknown) date) Ratio unknown) (unknown) (no (unknown) (unknown) Baso # (Auto) 100 (units (unknown) date) unknown) (unknown) (no (unknown) (unknown) Baso # (Auto) (units ( unknown) date) unknown) (unknown) (no (unknown) (unknown) Baso % (Auto) 1.9 (units (unknown) date) unknown) (unknown) (no (unknown) (unknown) Baso % (Auto) 2.5 (units (unknown) date) H unknown) (unknown) (no (unknown) (unknown) Baso % (Auto) (units ( unknown) date) unknown) (unknown) (no (unknown) (unknown) Blood Pressure (units (unknown) date) 73/40 L 75/39 L unknown) (unknown) (no (unknown) (unknown) Blood Pressure (units (unknown) date) 74/40 L unknown) (unknown) (no (unknown) (unknown) Blood Pressure (units (unknown) date) 77/42 L 80/45 L unknown) (unknown) (no (unknown) (unknown) Blood Pressure (units (unknown) date) 77/47 L unknown) (unknown) (no (unknown) (unknown) Blood Pressure (units (unknown) date) 78/43 L unknown) (unknown) (no (unknown) (unknown) Blood Pressure (units (unknown) date) 78/48 L unknown) (unknown) (no (unknown) (unknown) Blood Pressure (units (unknown) date) 80/44 L 79/43 L unknown) (unknown) (no (unknown) (unknown) Blood Pressure (units (unknown) date) 82/44 L 71/42 L unknown) (unknown) (no (unknown) (unknown) Blood Pressure (units (unknown) date) 86/53 L 83/50 L unknown) (unknown) (no (unknown) (unknown) CIWA protocol with (units (unknown) date) ativan unknown) (unknown) (no (unknown) (unknown) CIWAPRN PRN (units (un known) date) Administration unknown) (unknown) (no (unknown) (unknown) Calcium 7.7 L (units ( unknown) date) unknown) (unknown) (no (unknown) (unknown) Calcium 8.4 (units (un known) date) unknown) (unknown) (no (unknown) (unknown) Calcium (units (unkno wn) date) unknown) (unknown) (no (unknown) (unknown) Carbon Dioxide 30 (units (unknown) date) unknown) (unknown) (no (unknown) (unknown) Carbon Dioxide 33 (units (unknown) date) H unknown) (unknown) (no (unknown) (unknown) Carbon Dioxide (units (unknown) date) unknown) (unknown) (no (unknown) (unknown) Cardio (units (unkno wn) date) unknown) (unknown) (no (unknown) (unknown) Ceftriaxone Sodium (units (unknown) date) 1,000 mg/ 100 mls @ unknown) 200 mls/hr 08/09/22 07:00 08/09/22 (unknown) (no (unknown) (unknown) Check LA (units (unkno wn) date) unknown) (unknown) (no (unknown) (unknown) Chlordiazepoxide (units (unknown) date) 25 Mg Capsule PO 50 unknown) mg (unknown) (no (unknown) (unknown) Chlordiazepoxide (units (unknown) date) HCl 50 mg 08/09/22 unknown) 00:00 08/09/22 06:12 (unknown) (no (unknown) (unknown) Chloride 104 (units (u nknown) date) unknown) (unknown) (no (unknown) (unknown) Chloride 107 (units (u nknown) date) unknown) (unknown) (no (unknown) (unknown) Chloride (units (unkno wn) date) unknown) (unknown) (no (unknown) (unknown) Confirmed (units (unkn own) date) 08/01/22] unknown) (unknown) (no (unknown) (unknown) Conjugated (units (unk nown) date) Bilirubin 0.0 unknown) (unknown) (no (unknown) (unknown) Conjugated (units (unk nown) date) Bilirubin unknown) (unknown) (no (unknown) (unknown) Consent obtained (units (unknown) date) for unknown) 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: Yes (unknown) (no (unknown) (unknown) Continue IV (units (un known) date) fluids, MVI, unknown) Thiamine, folate (unknown) (no (unknown) (unknown) Creatinine 0.76 (units (unknown) date) unknown) (unknown) (no (unknown) (unknown) Creatinine 0.90 (units (unknown) date) unknown) (unknown) (no (unknown) (unknown) Creatinine (units (unk nown) date) unknown) (unknown) (no (unknown) (unknown) Culture pending (units (unknown) date) unknown) (unknown) (no (unknown) (unknown) Current (units (unkno wn) date) Medications unknown) (unknown) (no (unknown) (unknown) : 1990 (units (unknown) date) Acct:[id number] unknown) (unknown) (no (unknown) (unknown) Date of Service: (units (unknown) date) 08/08/22 unknown) (unknown) (no (unknown) (unknown) Deep Vein (units (unkn own) date) Thrombosis/Pulmonar unknown) y Embolism Present on Admission: No (unknown) (no (unknown) (unknown) ETOH level high on (units (unknown) date) admission unknown) (unknown) (no (unknown) (unknown) Eos # (Auto) 0 (units (unknown) date) unknown) (unknown) (no (unknown) (unknown) Eos # (Auto) (units (u nknown) date) unknown) (unknown) (no (unknown) (unknown) Eos % (Auto) 0.7 L (units (unknown) date) unknown) (unknown) (no (unknown) (unknown) Eos % (Auto) 0.8 L (units (unknown) date) unknown) (unknown) (no (unknown) (unknown) Eos % (Auto) (units (u nknown) date) unknown) (unknown) (no (unknown) (unknown) Estimated GFR > 60 (units (unknown) date) unknown) (unknown) (no (unknown) (unknown) Estimated GFR (units ( unknown) date) unknown) (unknown) (no (unknown) (unknown) Ethyl Alcohol 393 (units (unknown) date) H unknown) (unknown) (no (unknown) (unknown) Ethyl Alcohol (units ( unknown) date) unknown) (unknown) (no (unknown) (unknown) Exam Narrative: (units (unknown) date) unknown) (unknown) (no (unknown) (unknown) Exam (units (unkno wn) date) unknown) (unknown) (no (unknown) (unknown) Generic Name Dose (units (unknown) date) Route Start Last unknown) Admin (unknown) (no (unknown) (unknown) Globulin 2.4 (units (u nknown) date) unknown) (unknown) (no (unknown) (unknown) Globulin 3.3 (units (u nknown) date) unknown) (unknown) (no (unknown) (unknown) Globulin (units (unkno wn) date) unknown) (unknown) (no (unknown) (unknown) Glucose 84 (units (unk nown) date) unknown) (unknown) (no (unknown) (unknown) Glucose 92 (units (unk nown) date) unknown) (unknown) (no (unknown) (unknown) Glucose (units (unkno wn) date) unknown) (unknown) (no (unknown) (unknown) Hct 31.4 L (units (unk nown) date) unknown) (unknown) (no (unknown) (unknown) Hct 37.0 (units (unkno wn) date) unknown) (unknown) (no (unknown) (unknown) Hct (units (unkno wn) date) unknown) (unknown) (no (unknown) (unknown) Hgb 10.1 L (units (unk nown) date) unknown) (unknown) (no (unknown) (unknown) Hgb 11.9 L (units (unk nown) date) unknown) (unknown) (no (unknown) (unknown) Hgb (units (unkno wn) date) unknown) (unknown) (no (unknown) (unknown) Home Medications (units (unknown) date) unknown) (unknown) (no (unknown) (unknown) IF CAMERA (units (unkn own) date) ACTIVATED, patient unknown) seen via real-time interactive audiovisual (unknown) (no (unknown) (unknown) Interval history: (units (unknown) date) unknown) (unknown) (no (unknown) (unknown) [facility] (units (unknown) date) [address] unknown) [place] [address] (unknown) (no (unknown) (unknown) LR this am after (units (unknown) date) BP 80's/40's unknown) (unknown) (no (unknown) (unknown) Laboratory Results (units (unknown) date) - last 24 hr unknown) (unknown) (no (unknown) (unknown) Labs (units (unkno wn) date) unknown) (unknown) (no (unknown) (unknown) Labs: (units (unkno wn) date) unknown) (unknown) (no (unknown) (unknown) Lipase 408 H (units (u nknown) date) unknown) (unknown) (no (unknown) (unknown) Lipase (units (unkno wn) date) unknown) (unknown) (no (unknown) (unknown) Lorazepam 0 mg (units (unknown) date) 08/08/22 22:48 unknown) 08/08/22 23:00 (unknown) (no (unknown) (unknown) Lorazepam 2 Mg/Ml (units (unknown) date) Inj IV 2 mg unknown) (unknown) (no (unknown) (unknown) Lymph # (Auto) (units (unknown) date) 2600 unknown) (unknown) (no (unknown) (unknown) Lymph # (Auto) (units (unknown) date) 2800 unknown) (unknown) (no (unknown) (unknown) Lymph # (Auto) (units (unknown) date) unknown) (unknown) (no (unknown) (unknown) Lymph % (Auto) (units (unknown) date) 51.5 H unknown) (unknown) (no (unknown) (unknown) Lymph % (Auto) (units (unknown) date) 54.2 H unknown) (unknown) (no (unknown) (unknown) Lymph % (Auto) (units (unknown) date) unknown) (unknown) (no (unknown) (unknown) MAP 65, receiving (units (unknown) date) bolus unknown) (unknown) (no (unknown) (unknown) MCH 25.4 L (units (unk nown) date) unknown) (unknown) (no (unknown) (unknown) MCH 25.7 L (units (unk nown) date) unknown) (unknown) (no (unknown) (unknown) MCH (units (unkno wn) date) unknown) (unknown) (no (unknown) (unknown) MCHC 32.1 (units (unkn own) date) unknown) (unknown) (no (unknown) (unknown) MCHC 32.2 (units (unkn own) date) unknown) (unknown) (no (unknown) (unknown) MCHC (units (unkno wn) date) unknown) (unknown) (no (unknown) (unknown) MCV 79.0 L (units (unk nown) date) unknown) (unknown) (no (unknown) (unknown) MCV 80.2 (units (unkno wn) date) unknown) (unknown) (no (unknown) (unknown) MCV (units (unkno wn) date) unknown) (unknown) (no (unknown) (unknown) Magnesium 2.2 (units ( unknown) date) unknown) (unknown) (no (unknown) (unknown) Magnesium (units (unkn own) date) unknown) (unknown) (no (unknown) (unknown) Medications: (units (u nknown) date) unknown) (unknown) (no (unknown) (unknown) Yates # (Auto) 300 (units (unknown) date) unknown) (unknown) (no (unknown) (unknown) Yates # (Auto) 400 (units (unknown) date) unknown) (unknown) (no (unknown) (unknown) Yates # (Auto) (units ( unknown) date) unknown) (unknown) (no (unknown) (unknown) Yates % (Auto) 6.5 (units (unknown) date) unknown) (unknown) (no (unknown) (unknown) Yates % (Auto) 8.6 (units (unknown) date) unknown) (unknown) (no (unknown) (unknown) Yates % (Auto) (units ( unknown) date) unknown) (unknown) (no (unknown) (unknown) Narrative (units (unkn own) date) unknown) (unknown) (no (unknown) (unknown) Nausea And (units (unk nown) date) Vomiting unknown) (unknown) (no (unknown) (unknown) Neut # (Auto) 1900 (units (unknown) date) unknown) (unknown) (no (unknown) (unknown) Neut # (Auto) (units ( unknown) date) unknown) (unknown) (no (unknown) (unknown) Neut % (Auto) 36.6 (units (unknown) date) L unknown) (unknown) (no (unknown) (unknown) Neut % (Auto) 36.7 (units (unknown) date) L unknown) (unknown) (no (unknown) (unknown) Neut % (Auto) (units ( unknown) date) unknown) (unknown) (no (unknown) (unknown) No distress, (units (u nknown) date) sleeping in bed- on unknown) room air (unknown) (no (unknown) (unknown) Objective (units (unkn own) date) unknown) (unknown) (no (unknown) (unknown) Ondansetron 4 Mg/2 (units (unknown) date) Ml Inj IV 4 mg unknown) (unknown) (no (unknown) (unknown) Ondansetron HCl 4 (units (unknown) date) mg 08/08/22 22:48 unknown) 08/08/22 23:09 (unknown) (no (unknown) (unknown) Other (units (unkno wn) date) participants/roles: unknown) Bedside RN (unknown) (no (unknown) (unknown) Other: (units (unkno wn) date) unknown) (unknown) (no (unknown) (unknown) Oxygen Delivery (units (unknown) date) Method Room Air unknown) (unknown) (no (unknown) (unknown) Patient Location: (units (unknown) date) ICU unknown) (unknown) (no (unknown) (unknown) Patient admitted (units (unknown) date) for alcohol unknown) withdrawal/detox. She is s/p phenobarb dose in ED. (unknown) (no (unknown) (unknown) Patient has been (units (unknown) date) mildly hypotensive, unknown) but fluid responsive, Likely dehydration in (unknown) (no (unknown) (unknown) Patient: (units (unkno wn) date) Sarah Connors R unknown) MR#: M (unknown) (no (unknown) (unknown) Plan: (units (unkno wn) date) unknown) (unknown) (no (unknown) (unknown) Plt Count 332 (units ( unknown) date) unknown) (unknown) (no (unknown) (unknown) Plt Count 396 (units ( unknown) date) unknown) (unknown) (no (unknown) (unknown) Plt Count (units (unkn own) date) unknown) (unknown) (no (unknown) (unknown) Potassium 3.5 (units ( unknown) date) unknown) (unknown) (no (unknown) (unknown) Potassium 3.6 (units ( unknown) date) unknown) (unknown) (no (unknown) (unknown) Potassium (units (unkn own) date) unknown) (unknown) (no (unknown) (unknown) Precedex IV 0 (units ( unknown) date) mcg/kg/hr unknown) (unknown) (no (unknown) (unknown) Precedex gtt (units (u nknown) date) currently off, will unknown) continue to monitor need for precedex gtt (unknown) (no (unknown) (unknown) Precedex gtt (units (u nknown) date) turned off at 5 am- unknown) She was able to take her PO librium (unknown) (no (unknown) (unknown) Protocol (units (unkno wn) date) unknown) (unknown) (no (unknown) (unknown) Provider location (units (unknown) date) (State): [place] unknown) (unknown) (no (unknown) (unknown) Provider: (units (unkn own) date) Uyen Prince MD unknown) (unknown) (no (unknown) (unknown) Pulse Oximetry 95 (units (unknown) date) 95 unknown) (unknown) (no (unknown) (unknown) Pulse Oximetry 95 (units (unknown) date) 96 unknown) (unknown) (no (unknown) (unknown) Pulse Oximetry 95 (units (unknown) date) unknown) (unknown) (no (unknown) (unknown) Pulse Oximetry 96 (units (unknown) date) unknown) (unknown) (no (unknown) (unknown) Pulse Oximetry 97 (units (unknown) date) 96 unknown) (unknown) (no (unknown) (unknown) Pulse Oximetry 97 (units (unknown) date) unknown) (unknown) (no (unknown) (unknown) Pulse Oximetry 99 (units (unknown) date) 99 unknown) (unknown) (no (unknown) (unknown) Pulse Rate 69 72 (units (unknown) date) unknown) (unknown) (no (unknown) (unknown) Pulse Rate 71 (units ( unknown) date) unknown) (unknown) (no (unknown) (unknown) Pulse Rate 72 (units ( unknown) date) unknown) (unknown) (no (unknown) (unknown) Pulse Rate 75 69 (units (unknown) date) unknown) (unknown) (no (unknown) (unknown) Pulse Rate 75 75 (units (unknown) date) unknown) (unknown) (no (unknown) (unknown) Pulse Rate 75 78 (units (unknown) date) unknown) (unknown) (no (unknown) (unknown) Pulse Rate 75 (units ( unknown) date) unknown) (unknown) (no (unknown) (unknown) Pulse Rate 76 71 (units (unknown) date) unknown) (unknown) (no (unknown) (unknown) Pulse Rate 79 76 (units (unknown) date) unknown) (unknown) (no (unknown) (unknown) Q24H SANDY (units (unkno wn) date) Administration unknown) (unknown) (no (unknown) (unknown) Q6HR SANDY (units (unkno wn) date) Administration unknown) (unknown) (no (unknown) (unknown) Q8HR PRN (units (unkno wn) date) Administration unknown) (unknown) (no (unknown) (unknown) Quality TeleICU (units (unknown) date) unknown) (unknown) (no (unknown) (unknown) RBC 3.98 L (units (unk nown) date) unknown) (unknown) (no (unknown) (unknown) RBC 4.61 (units (unkno wn) date) unknown) (unknown) (no (unknown) (unknown) RBC (units (unkno wn) date) unknown) (unknown) (no (unknown) (unknown) RDW 19.5 H (units (unk nown) date) unknown) (unknown) (no (unknown) (unknown) RDW 19.7 H (units (unk nown) date) unknown) (unknown) (no (unknown) (unknown) RDW (units (unkno wn) date) unknown) (unknown) (no (unknown) (unknown) Respiratory Rate (units (unknown) date) 14 16 unknown) (unknown) (no (unknown) (unknown) Respiratory Rate (units (unknown) date) 16 16 unknown) (unknown) (no (unknown) (unknown) Respiratory Rate (units (unknown) date) 18 19 unknown) (unknown) (no (unknown) (unknown) Respiratory Rate (units (unknown) date) 18 unknown) (unknown) (no (unknown) (unknown) Respiratory Rate (units (unknown) date) 19 unknown) (unknown) (no (unknown) (unknown) Respiratory Rate (units (unknown) date) 21 20 unknown) (unknown) (no (unknown) (unknown) Respiratory Rate (units (unknown) date) 27 H unknown) (unknown) (no (unknown) (unknown) Respiratory Rate (units (unknown) date) 34 H 23 unknown) (unknown) (no (unknown) (unknown) Respiratory Rate (units (unknown) date) 37 H 16 unknown) (unknown) (no (unknown) (unknown) Respiratory Rate (units (unknown) date) 37 H unknown) (unknown) (no (unknown) (unknown) SARS-CoV-2 (PCR) (units (unknown) date) Negative unknown) (unknown) (no (unknown) (unknown) SARS-CoV-2 (PCR) (units (unknown) date) unknown) (unknown) (no (unknown) (unknown) SCD's for DVT ppx (units (unknown) date) unknown) (unknown) (no (unknown) (unknown) She remains mildly (units (unknown) date) hypotensive and unknown) urine is estefany in color, she is being treated (unknown) (no (unknown) (unknown) Signed By: (units (unk nown) date) unknown) (unknown) (no (unknown) (unknown) Sodium 145 (units (unk nown) date) unknown) (unknown) (no (unknown) (unknown) Sodium 148 H D (units (unknown) date) unknown) (unknown) (no (unknown) (unknown) Sodium Chloride IV (units (unknown) date) 08/12/22 06:59 200 unknown) mls/hr (unknown) (no (unknown) (unknown) Sodium (units (unkno wn) date) unknown) (unknown) (no (unknown) (unknown) Started on (units (unk nown) date) ceftriaxone unknown) (unknown) (no (unknown) (unknown) Status: Acute (units ( unknown) date) unknown) (unknown) (no (unknown) (unknown) Subjective (units (unk nown) date) unknown) (unknown) (no (unknown) (unknown) TITRATE SANDY 0 (units ( unknown) date) mls/hr unknown) (unknown) (no (unknown) (unknown) Teleintensivist (units (unknown) date) Progress Note unknown) (unknown) (no (unknown) (unknown) Temperature 98.6 F (units (unknown) date) unknown) (unknown) (no (unknown) (unknown) Temperature (units (un known) date) unknown) (unknown) (no (unknown) (unknown) Time Spent With (units (unknown) date) Patient unknown) (unknown) (no (unknown) (unknown) Time with patient: (units (unknown) date) less than 30 unknown) minutes (unknown) (no (unknown) (unknown) Titration (units (unkn own) date) unknown) (unknown) (no (unknown) (unknown) Total Bilirubin (units (unknown) date) 0.3 unknown) (unknown) (no (unknown) (unknown) Total Bilirubin (units (unknown) date) 0.4 unknown) (unknown) (no (unknown) (unknown) Total Bilirubin (units (unknown) date) unknown) (unknown) (no (unknown) (unknown) Total Protein 6.0 (units (unknown) date) L unknown) (unknown) (no (unknown) (unknown) Total Protein 7.7 (units (unknown) date) unknown) (unknown) (no (unknown) (unknown) Total Protein (units ( unknown) date) unknown) (unknown) (no (unknown) (unknown) Trade Name Freq (units (unknown) date) PRN Reason Stop unknown) Dose Admin (unknown) (no (unknown) (unknown) U Benzodiazepines (units (unknown) date) Scrn Positive H unknown) (unknown) (no (unknown) (unknown) U Benzodiazepines (units (unknown) date) Scrn unknown) (unknown) (no (unknown) (unknown) U Marijuana (THC) (units (unknown) date) Screen Negative unknown) (unknown) (no (unknown) (unknown) U Marijuana (THC) (units (unknown) date) Screen unknown) (unknown) (no (unknown) (unknown) U Methamphetamines (units (unknown) date) Scrn Negative unknown) (unknown) (no (unknown) (unknown) U Methamphetamines (units (unknown) date) Scrn unknown) (unknown) (no (unknown) (unknown) U Opiates 300ng/mL (units (unknown) date) cut Negative unknown) (unknown) (no (unknown) (unknown) U Opiates 300ng/mL (units (unknown) date) cut unknown) (unknown) (no (unknown) (unknown) U Tricyclic (units (un known) date) Antidepress unknown) Positive H (unknown) (no (unknown) (unknown) U Tricyclic (units (un known) date) Antidepress unknown) (unknown) (no (unknown) (unknown) UA +, urine estefany (units (unknown) date) colored c/f UTI unknown) (unknown) (no (unknown) (unknown) Unconjugated (units (u nknown) date) Bilirubin 0.0 unknown) (unknown) (no (unknown) (unknown) Unconjugated (units (u nknown) date) Bilirubin unknown) (unknown) (no (unknown) (unknown) Ur Amphetamines (units (unknown) date) Screen Negative unknown) (unknown) (no (unknown) (unknown) Ur Amphetamines (units (unknown) date) Screen unknown) (unknown) (no (unknown) (unknown) Ur Barbiturates (units (unknown) date) Screen Positive H unknown) (unknown) (no (unknown) (unknown) Ur Barbiturates (units (unknown) date) Screen unknown) (unknown) (no (unknown) (unknown) Ur Culture (units (unk nown) date) Indicated? Specimen unknown) cultured (unknown) (no (unknown) (unknown) Ur Culture (units (unk nown) date) Indicated? unknown) (unknown) (no (unknown) (unknown) Ur Leukocyte (units (u nknown) date) Esterase 1+ H unknown) (unknown) (no (unknown) (unknown) Ur Leukocyte (units (u nknown) date) Esterase unknown) (unknown) (no (unknown) (unknown) Ur MDMA Scrn (units (u nknown) date) (Ecstasy) Negative unknown) (unknown) (no (unknown) (unknown) Ur MDMA Scrn (units (u nknown) date) (Ecstasy) unknown) (unknown) (no (unknown) (unknown) Ur Oxycodone (units (u nknown) date) Screen Negative unknown) (unknown) (no (unknown) (unknown) Ur Oxycodone (units (u nknown) date) Screen unknown) (unknown) (no (unknown) (unknown) Ur Phencyclidine (units (unknown) date) Scrn Negative unknown) (unknown) (no (unknown) (unknown) Ur Phencyclidine (units (unknown) date) Scrn unknown) (unknown) (no (unknown) (unknown) Ur Specific (units (un known) date) [place] 1.015 unknown) (unknown) (no (unknown) (unknown) Ur Specific (units (un known) date) [place] unknown) (unknown) (no (unknown) (unknown) Urine Appearance (units (unknown) date) Clear unknown) (unknown) (no (unknown) (unknown) Urine Appearance (units (unknown) date) unknown) (unknown) (no (unknown) (unknown) Urine Bacteria (units (unknown) date) Many (>30) H unknown) (unknown) (no (unknown) (unknown) Urine Bacteria (units (unknown) date) unknown) (unknown) (no (unknown) (unknown) Urine Bilirubin (units (unknown) date) Negative unknown) (unknown) (no (unknown) (unknown) Urine Bilirubin (units (unknown) date) unknown) (unknown) (no (unknown) (unknown) Urine Cocaine (units ( unknown) date) Screen Negative unknown) (unknown) (no (unknown) (unknown) Urine Cocaine (units ( unknown) date) Screen unknown) (unknown) (no (unknown) (unknown) Urine Color Yellow (units (unknown) date) unknown) (unknown) (no (unknown) (unknown) Urine Color (units (un known) date) unknown) (unknown) (no (unknown) (unknown) Urine Glucose (UA) (units (unknown) date) Negative unknown) (unknown) (no (unknown) (unknown) Urine Glucose (UA) (units (unknown) date) unknown) (unknown) (no (unknown) (unknown) Urine Ketones (units ( unknown) date) Negative unknown) (unknown) (no (unknown) (unknown) Urine Ketones (units ( unknown) date) unknown) (unknown) (no (unknown) (unknown) Urine Methadone (units (unknown) date) Screen Negative unknown) (unknown) (no (unknown) (unknown) Urine Methadone (units (unknown) date) Screen unknown) (unknown) (no (unknown) (unknown) Urine Nitrate (units ( unknown) date) Positive H unknown) (unknown) (no (unknown) (unknown) Urine Nitrate (units ( unknown) date) unknown) (unknown) (no (unknown) (unknown) Urine Occult Blood (units (unknown) date) Negative unknown) (unknown) (no (unknown) (unknown) Urine Occult Blood (units (unknown) date) unknown) (unknown) (no (unknown) (unknown) Urine (units (unknown) date) Test Negative unknown) (unknown) (no (unknown) (unknown) Urine (units (unknown) date) Test unknown) (unknown) (no (unknown) (unknown) Urine Protein (units ( unknown) date) Negative unknown) (unknown) (no (unknown) (unknown) Urine Protein (units ( unknown) date) unknown) (unknown) (no (unknown) (unknown) Urine RBC None (units (unknown) date) seen unknown) (unknown) (no (unknown) (unknown) Urine RBC (units (unkn own) date) unknown) (unknown) (no (unknown) (unknown) Urine Urobilinogen (units (unknown) date) 0.2 unknown) (unknown) (no (unknown) (unknown) Urine Urobilinogen (units (unknown) date) unknown) (unknown) (no (unknown) (unknown) Urine WBC (units (unkn own) date) 10-30/hpf H unknown) (unknown) (no (unknown) (unknown) Urine WBC (units (unkn own) date) unknown) (unknown) (no (unknown) (unknown) Urine pH 6.0 (units (u nknown) date) unknown) (unknown) (no (unknown) (unknown) Urine pH (units (unkno wn) date) unknown) (unknown) (no (unknown) (unknown) VTE (units (unkno wn) date) unknown) (unknown) (no (unknown) (unknown) Visit Medications (units (unknown) date) (administered) unknown) (unknown) (no (unknown) (unknown) Vital Signs (units (un known) date) unknown) (unknown) (no (unknown) (unknown) WBC 5.1 (units (unkno wn) date) unknown) (unknown) (no (unknown) (unknown) WBC 5.2 (units (unkno wn) date) unknown) (unknown) (no (unknown) (unknown) WBC (units (unkno wn) date) unknown) (unknown) (no (unknown) (unknown) Will continue to (units (unknown) date) monitor volume unknown) responsiveness and potential need for pressors (unknown) (no (unknown) (unknown) Will restart home (units (unknown) date) PPI unknown) (unknown) (no (unknown) (unknown) [Embedded Image (units (unknown) date) Not Available] unknown) (unknown) (no (unknown) (unknown) [Rx Confirmed (units ( unknown) date) 08/01/22] unknown) (unknown) (no (unknown) (unknown) chlordiazepoxide (units (unknown) date) HCl 25 mg capsule unknown) See Rx Instructions .Route .COMPLEX #30 caps (unknown) (no (unknown) (unknown) communication: (units (unknown) date) Camera activated unknown) (unknown) (no (unknown) (unknown) dexmedeTOMIDine in (units (unknown) date) 0.9 % NaCL 400 mcg unknown) in 100 mls @ 2.699 mls/hr 08/08/22 22:48 (unknown) (no (unknown) (unknown) disulfiram 250 mg (units (unknown) date) tablet 250 mg PO unknown) DAILY #30 tabs 08/03/22 [Rx] (unknown) (no (unknown) (unknown) fluoxetine 10 mg (units (unknown) date) capsule 10 mg PO unknown) DAILY 07/13/22 [History Confirmed 08/01/22] (unknown) (no (unknown) (unknown) for UTI- Initially (units (unknown) date) recieved 1 L LR unknown) bolus and BP improved. Ordered another 1 L (unknown) (no (unknown) (unknown) hydroxyzine HCl 50 (units (unknown) date) mg tablet 50 mg PO unknown) DAILY 07/13/22 [History Confirmed (unknown) (no (unknown) (unknown) librium PO (units (unk nown) date) unknown) (unknown) (no (unknown) (unknown) multivitamin with (units (unknown) date) folic acid 400 mcg unknown) tablet (Tab-A-Kael) 1 tab PO DAILY #30 tabs (unknown) (no (unknown) (unknown) pantoprazole 40 mg (units (unknown) date) tablet,delayed unknown) release 40 mg PO 0700 #30 tabs 07/14/22 [Rx (unknown) (no (unknown) (unknown) possibly component (units (unknown) date) of sepsis as well unknown) (unknown) (no (unknown) (unknown) quetiapine 300 mg (units (unknown) date) tablet 300 mg PO unknown) DAILY 07/13/22 [History Confirmed 08/01/22] (unknown) (no (unknown) (unknown) setting of acute (units (unknown) date) alcohol unknown) intoxication on admission (Etoh level >300) However (unknown) (no (unknown) (unknown) thiamine (units (unkno wn) date) mononitrate (vit unknown) B1) 100 mg tablet 100 mg PO DAILY #30 tabs 07/14/22 (unknown) (no (unknown) (unknown) will order (units (unk nown) date) procalcitonin unknown) Result panel [id number] (unknown) (no (unknown) (unknown) (no value) (units (unk nown) date) unknown) (unknown) (no (unknown) (unknown) (1) Abnormal (units (u nknown) date) urinalysis: unknown) (unknown) (no (unknown) (unknown) (2) Alcohol (units (un known) date) intoxication: unknown) (unknown) (no (unknown) (unknown) (3) Alcohol (units (un known) date) withdrawal: unknown) (unknown) (no (unknown) (unknown) (past 8 hours): (units (unknown) date) unknown) (unknown) (no (unknown) (unknown) 0.2 MCG/KG/HR (units ( unknown) date) unknown) (unknown) (no (unknown) (unknown) [id number] (units (unkn own) date) unknown) (unknown) (no (unknown) (unknown) 01:00 08/09/22 (units (unknown) date) unknown) (unknown) (no (unknown) (unknown) 01:06 08/09/22 (units (unknown) date) unknown) (unknown) (no (unknown) (unknown) 01:06 (units (unkno wn) date) unknown) (unknown) (no (unknown) (unknown) 01:29 08/09/22 (units (unknown) date) unknown) (unknown) (no (unknown) (unknown) 01:29 (units (unkno wn) date) unknown) (unknown) (no (unknown) (unknown) 02:00 08/09/22 (units (unknown) date) unknown) (unknown) (no (unknown) (unknown) 07/14/22 [Rx (units (u nknown) date) Confirmed 08/01/22] unknown) (unknown) (no (unknown) (unknown) 08/01/22] (units (unkn own) date) unknown) (unknown) (no (unknown) (unknown) 08/03/22 [Rx] (units ( unknown) date) unknown) (unknown) (no (unknown) (unknown) 08/08/22 08/08/22 (units (unknown) date) 08/08/22 unknown) (unknown) (no (unknown) (unknown) 08/08/22 08/08/22 (units (unknown) date) 08/09/22 unknown) (unknown) (no (unknown) (unknown) 08/09/22 08/09/22 (units (unknown) date) 08/09/22 unknown) (unknown) (no (unknown) (unknown) 08/09/22 08/09/22 (units (unknown) date) unknown) (unknown) (no (unknown) (unknown) 08/09/22 04:16 (units (unknown) date) unknown) (unknown) (no (unknown) (unknown) 08/09/22 05:06 (units (unknown) date) unknown) (unknown) (no (unknown) (unknown) 08/09/22 (units (unkno wn) date) unknown) (unknown) (no (unknown) (unknown) 03:00 08/09/22 (units (unknown) date) unknown) (unknown) (no (unknown) (unknown) 03:00 (units (unkno wn) date) unknown) (unknown) (no (unknown) (unknown) 03:02 08/09/22 (units (unknown) date) unknown) (unknown) (no (unknown) (unknown) 03:02 (units (unkno wn) date) unknown) (unknown) (no (unknown) (unknown) 04:00 08/09/22 (units (unknown) date) unknown) (unknown) (no (unknown) (unknown) 04:16 04:16 04:30 (units (unknown) date) unknown) (unknown) (no (unknown) (unknown) 04:20 08/09/22 (units (unknown) date) unknown) (unknown) (no (unknown) (unknown) 04:20 (units (unkno wn) date) unknown) (unknown) (no (unknown) (unknown) 04:30 04:30 (units (un known) date) unknown) (unknown) (no (unknown) (unknown) 05:00 08/09/22 (units (unknown) date) unknown) (unknown) (no (unknown) (unknown) 05:00 (units (unkno wn) date) unknown) (unknown) (no (unknown) (unknown) 05:02 08/09/22 (units (unknown) date) unknown) (unknown) (no (unknown) (unknown) 05:20 08/09/22 (units (unknown) date) unknown) (unknown) (no (unknown) (unknown) 05:20 (units (unkno wn) date) unknown) (unknown) (no (unknown) (unknown) 05:34 08/09/22 (units (unknown) date) unknown) (unknown) (no (unknown) (unknown) 05:34 (units (unkno wn) date) unknown) (unknown) (no (unknown) (unknown) 06:00 08/09/22 (units (unknown) date) unknown) (unknown) (no (unknown) (unknown) 06:24 08/09/22 (units (unknown) date) unknown) (unknown) (no (unknown) (unknown) 06:24 (units (unkno wn) date) unknown) (unknown) (no (unknown) (unknown) 07:00 08/09/22 (units (unknown) date) unknown) (unknown) (no (unknown) (unknown) 07:00 (units (unkno wn) date) unknown) (unknown) (no (unknown) (unknown) 07:35 (units (unkno wn) date) unknown) (unknown) (no (unknown) (unknown) 21:00 21:00 21:00 (units (unknown) date) unknown) (unknown) (no (unknown) (unknown) 21:00 22:30 04:16 (units (unknown) date) unknown) (unknown) (no (unknown) (unknown) ALT 51 H (units (unkno wn) date) unknown) (unknown) (no (unknown) (unknown) ALT 64 H (units (unkno wn) date) unknown) (unknown) (no (unknown) (unknown) ALT (units (unkno wn) date) unknown) (unknown) (no (unknown) (unknown) AST 288 H (units (unkn own) date) unknown) (unknown) (no (unknown) (unknown) AST 424 H (units (unkn own) date) unknown) (unknown) (no (unknown) (unknown) AST (units (unkno wn) date) unknown) (unknown) (no (unknown) (unknown) Age/Sex: 31 / F (units (unknown) date) unknown) (unknown) (no (unknown) (unknown) Albumin 3.6 (units (un known) date) unknown) (unknown) (no (unknown) (unknown) Albumin 4.4 (units (un known) date) unknown) (unknown) (no (unknown) (unknown) Albumin (units (unkno wn) date) unknown) (unknown) (no (unknown) (unknown) Albumin/Globulin (units (unknown) date) Ratio 1.3 unknown) (unknown) (no (unknown) (unknown) Albumin/Globulin (units (unknown) date) Ratio 1.5 unknown) (unknown) (no (unknown) (unknown) Albumin/Globulin (units (unknown) date) Ratio unknown) (unknown) (no (unknown) (unknown) Alcohol Withdrawal (units (unknown) date) unknown) (unknown) (no (unknown) (unknown) Alkaline (units (unkno wn) date) Phosphatase 59 unknown) (unknown) (no (unknown) (unknown) Alkaline (units (unkno wn) date) Phosphatase 71 unknown) (unknown) (no (unknown) (unknown) Alkaline (units (unkno wn) date) Phosphatase unknown) (unknown) (no (unknown) (unknown) Assessment + Plan (units (unknown) date) narrative: unknown) (unknown) (no (unknown) (unknown) Assessment + Plan (units (unknown) date) unknown) (unknown) (no (unknown) (unknown) Assessment and (units (unknown) date) plan unknown) (unknown) (no (unknown) (unknown) BUN 7 (units (unkno wn) date) unknown) (unknown) (no (unknown) (unknown) BUN 8 (units (unkno wn) date) unknown) (unknown) (no (unknown) (unknown) BUN (units (unkno wn) date) unknown) (unknown) (no (unknown) (unknown) BUN/Creatinine (units (unknown) date) Ratio 8.9 unknown) (unknown) (no (unknown) (unknown) BUN/Creatinine (units (unknown) date) Ratio 9.2 unknown) (unknown) (no (unknown) (unknown) BUN/Creatinine (units (unknown) date) Ratio unknown) (unknown) (no (unknown) (unknown) Baso # (Auto) 100 (units (unknown) date) unknown) (unknown) (no (unknown) (unknown) Baso # (Auto) (units ( unknown) date) unknown) (unknown) (no (unknown) (unknown) Baso % (Auto) 1.9 (units (unknown) date) unknown) (unknown) (no (unknown) (unknown) Baso % (Auto) 2.5 (units (unknown) date) H unknown) (unknown) (no (unknown) (unknown) Baso % (Auto) (units ( unknown) date) unknown) (unknown) (no (unknown) (unknown) Blood Pressure (units (unknown) date) 73/40 L 75/39 L unknown) (unknown) (no (unknown) (unknown) Blood Pressure (units (unknown) date) 74/40 L unknown) (unknown) (no (unknown) (unknown) Blood Pressure (units (unknown) date) 77/42 L 80/45 L unknown) (unknown) (no (unknown) (unknown) Blood Pressure (units (unknown) date) 77/47 L unknown) (unknown) (no (unknown) (unknown) Blood Pressure (units (unknown) date) 78/43 L unknown) (unknown) (no (unknown) (unknown) Blood Pressure (units (unknown) date) 78/48 L unknown) (unknown) (no (unknown) (unknown) Blood Pressure (units (unknown) date) 80/44 L 79/43 L unknown) (unknown) (no (unknown) (unknown) Blood Pressure (units (unknown) date) 82/44 L 71/42 L unknown) (unknown) (no (unknown) (unknown) Blood Pressure (units (unknown) date) 86/53 L 83/50 L unknown) (unknown) (no (unknown) (unknown) CIWA protocol with (units (unknown) date) ativan unknown) (unknown) (no (unknown) (unknown) CIWAPRN PRN (units (un known) date) Administration unknown) (unknown) (no (unknown) (unknown) Calcium 7.7 L (units ( unknown) date) unknown) (unknown) (no (unknown) (unknown) Calcium 8.4 (units (un known) date) unknown) (unknown) (no (unknown) (unknown) Calcium (units (unkno wn) date) unknown) (unknown) (no (unknown) (unknown) Carbon Dioxide 30 (units (unknown) date) unknown) (unknown) (no (unknown) (unknown) Carbon Dioxide 33 (units (unknown) date) H unknown) (unknown) (no (unknown) (unknown) Carbon Dioxide (units (unknown) date) unknown) (unknown) (no (unknown) (unknown) Cardio (units (unkno wn) date) unknown) (unknown) (no (unknown) (unknown) Ceftriaxone Sodium (units (unknown) date) 1,000 mg/ 100 mls @ unknown) 200 mls/hr 08/09/22 07:00 08/09/22 (unknown) (no (unknown) (unknown) Check LA (units (unkno wn) date) unknown) (unknown) (no (unknown) (unknown) Chlordiazepoxide (units (unknown) date) 25 Mg Capsule PO 50 unknown) mg (unknown) (no (unknown) (unknown) Chlordiazepoxide (units (unknown) date) HCl 50 mg 08/09/22 unknown) 00:00 08/09/22 06:12 (unknown) (no (unknown) (unknown) Chloride 104 (units (u nknown) date) unknown) (unknown) (no (unknown) (unknown) Chloride 107 (units (u nknown) date) unknown) (unknown) (no (unknown) (unknown) Chloride (units (unkno wn) date) unknown) (unknown) (no (unknown) (unknown) Confirmed (units (unkn own) date) 08/01/22] unknown) (unknown) (no (unknown) (unknown) Conjugated (units (unk nown) date) Bilirubin 0.0 unknown) (unknown) (no (unknown) (unknown) Conjugated (units (unk nown) date) Bilirubin unknown) (unknown) (no (unknown) (unknown) Consent obtained (units (unknown) date) for unknown) 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: Yes (unknown) (no (unknown) (unknown) Continue IV (units (un known) date) fluids, MVI, unknown) Thiamine, folate (unknown) (no (unknown) (unknown) Creatinine 0.76 (units (unknown) date) unknown) (unknown) (no (unknown) (unknown) Creatinine 0.90 (units (unknown) date) unknown) (unknown) (no (unknown) (unknown) Creatinine (units (unk nown) date) unknown) (unknown) (no (unknown) (unknown) Culture pending (units (unknown) date) unknown) (unknown) (no (unknown) (unknown) Current (units (unkno wn) date) Medications unknown) (unknown) (no (unknown) (unknown) : 1990 (units (unknown) date) Acct:[id number] unknown) (unknown) (no (unknown) (unknown) Date of Service: (units (unknown) date) 08/08/22 unknown) (unknown) (no (unknown) (unknown) Deep Vein (units (unkn own) date) Thrombosis/Pulmonar unknown) y Embolism Present on Admission: No (unknown) (no (unknown) (unknown) ETOH level high on (units (unknown) date) admission unknown) (unknown) (no (unknown) (unknown) Eos # (Auto) 0 (units (unknown) date) unknown) (unknown) (no (unknown) (unknown) Eos # (Auto) (units (u nknown) date) unknown) (unknown) (no (unknown) (unknown) Eos % (Auto) 0.7 L (units (unknown) date) unknown) (unknown) (no (unknown) (unknown) Eos % (Auto) 0.8 L (units (unknown) date) unknown) (unknown) (no (unknown) (unknown) Eos % (Auto) (units (u nknown) date) unknown) (unknown) (no (unknown) (unknown) Estimated GFR > 60 (units (unknown) date) unknown) (unknown) (no (unknown) (unknown) Estimated GFR (units ( unknown) date) unknown) (unknown) (no (unknown) (unknown) Ethyl Alcohol 393 (units (unknown) date) H unknown) (unknown) (no (unknown) (unknown) Ethyl Alcohol (units ( unknown) date) unknown) (unknown) (no (unknown) (unknown) Exam Narrative: (units (unknown) date) unknown) (unknown) (no (unknown) (unknown) Exam (units (unkno wn) date) unknown) (unknown) (no (unknown) (unknown) Generic Name Dose (units (unknown) date) Route Start Last unknown) Admin (unknown) (no (unknown) (unknown) Globulin 2.4 (units (u nknown) date) unknown) (unknown) (no (unknown) (unknown) Globulin 3.3 (units (u nknown) date) unknown) (unknown) (no (unknown) (unknown) Globulin (units (unkno wn) date) unknown) (unknown) (no (unknown) (unknown) Glucose 84 (units (unk nown) date) unknown) (unknown) (no (unknown) (unknown) Glucose 92 (units (unk nown) date) unknown) (unknown) (no (unknown) (unknown) Glucose (units (unkno wn) date) unknown) (unknown) (no (unknown) (unknown) Hct 31.4 L (units (unk nown) date) unknown) (unknown) (no (unknown) (unknown) Hct 37.0 (units (unkno wn) date) unknown) (unknown) (no (unknown) (unknown) Hct (units (unkno wn) date) unknown) (unknown) (no (unknown) (unknown) Hgb 10.1 L (units (unk nown) date) unknown) (unknown) (no (unknown) (unknown) Hgb 11.9 L (units (unk nown) date) unknown) (unknown) (no (unknown) (unknown) Hgb (units (unkno wn) date) unknown) (unknown) (no (unknown) (unknown) Home Medications (units (unknown) date) unknown) (unknown) (no (unknown) (unknown) IF CAMERA (units (unkn own) date) ACTIVATED, patient unknown) seen via real-time interactive audiovisual (unknown) (no (unknown) (unknown) Interval history: (units (unknown) date) unknown) (unknown) (no (unknown) (unknown) [facility] (units (unknown) date) [address] unknown) [place] [id number] (unknown) (no (unknown) (unknown) LR this am after (units (unknown) date) BP 80's/40's unknown) (unknown) (no (unknown) (unknown) Laboratory Results (units (unknown) date) - last 24 hr unknown) (unknown) (no (unknown) (unknown) Labs (units (unkno wn) date) unknown) (unknown) (no (unknown) (unknown) Labs: (units (unkno wn) date) unknown) (unknown) (no (unknown) (unknown) Lipase 408 H (units (u nknown) date) unknown) (unknown) (no (unknown) (unknown) Lipase (units (unkno wn) date) unknown) (unknown) (no (unknown) (unknown) Lorazepam 0 mg (units (unknown) date) 08/08/22 22:48 unknown) 08/08/22 23:00 (unknown) (no (unknown) (unknown) Lorazepam 2 Mg/Ml (units (unknown) date) Inj IV 2 mg unknown) (unknown) (no (unknown) (unknown) Lymph # (Auto) (units (unknown) date) 2600 unknown) (unknown) (no (unknown) (unknown) Lymph # (Auto) (units (unknown) date) 2800 unknown) (unknown) (no (unknown) (unknown) Lymph # (Auto) (units (unknown) date) unknown) (unknown) (no (unknown) (unknown) Lymph % (Auto) (units (unknown) date) 51.5 H unknown) (unknown) (no (unknown) (unknown) Lymph % (Auto) (units (unknown) date) 54.2 H unknown) (unknown) (no (unknown) (unknown) Lymph % (Auto) (units (unknown) date) unknown) (unknown) (no (unknown) (unknown) MAP 65, receiving (units (unknown) date) bolus unknown) (unknown) (no (unknown) (unknown) MCH 25.4 L (units (unk nown) date) unknown) (unknown) (no (unknown) (unknown) MCH 25.7 L (units (unk nown) date) unknown) (unknown) (no (unknown) (unknown) MCH (units (unkno wn) date) unknown) (unknown) (no (unknown) (unknown) MCHC 32.1 (units (unkn own) date) unknown) (unknown) (no (unknown) (unknown) MCHC 32.2 (units (unkn own) date) unknown) (unknown) (no (unknown) (unknown) MCHC (units (unkno wn) date) unknown) (unknown) (no (unknown) (unknown) MCV 79.0 L (units (unk nown) date) unknown) (unknown) (no (unknown) (unknown) MCV 80.2 (units (unkno wn) date) unknown) (unknown) (no (unknown) (unknown) MCV (units (unkno wn) date) unknown) (unknown) (no (unknown) (unknown) Magnesium 2.2 (units ( unknown) date) unknown) (unknown) (no (unknown) (unknown) Magnesium (units (unkn own) date) unknown) (unknown) (no (unknown) (unknown) Medications: (units (u nknown) date) unknown) (unknown) (no (unknown) (unknown) Yates # (Auto) 300 (units (unknown) date) unknown) (unknown) (no (unknown) (unknown) Yates # (Auto) 400 (units (unknown) date) unknown) (unknown) (no (unknown) (unknown) Yates # (Auto) (units ( unknown) date) unknown) (unknown) (no (unknown) (unknown) Yates % (Auto) 6.5 (units (unknown) date) unknown) (unknown) (no (unknown) (unknown) Yates % (Auto) 8.6 (units (unknown) date) unknown) (unknown) (no (unknown) (unknown) Yates % (Auto) (units ( unknown) date) unknown) (unknown) (no (unknown) (unknown) Narrative (units (unkn own) date) unknown) (unknown) (no (unknown) (unknown) Nausea And (units (unk nown) date) Vomiting unknown) (unknown) (no (unknown) (unknown) Neut # (Auto) 1900 (units (unknown) date) unknown) (unknown) (no (unknown) (unknown) Neut # (Auto) (units ( unknown) date) unknown) (unknown) (no (unknown) (unknown) Neut % (Auto) 36.6 (units (unknown) date) L unknown) (unknown) (no (unknown) (unknown) Neut % (Auto) 36.7 (units (unknown) date) L unknown) (unknown) (no (unknown) (unknown) Neut % (Auto) (units ( unknown) date) unknown) (unknown) (no (unknown) (unknown) No distress, (units (u nknown) date) sleeping in bed- on unknown) room air (unknown) (no (unknown) (unknown) Objective (units (unkn own) date) unknown) (unknown) (no (unknown) (unknown) Ondansetron 4 Mg/2 (units (unknown) date) Ml Inj IV 4 mg unknown) (unknown) (no (unknown) (unknown) Ondansetron HCl 4 (units (unknown) date) mg 08/08/22 22:48 unknown) 08/08/22 23:09 (unknown) (no (unknown) (unknown) Other (units (unkno wn) date) participants/roles: unknown) Bedside RN (unknown) (no (unknown) (unknown) Other: (units (unkno wn) date) unknown) (unknown) (no (unknown) (unknown) Oxygen Delivery (units (unknown) date) Method Room Air unknown) (unknown) (no (unknown) (unknown) Patient Location: (units (unknown) date) ICU unknown) (unknown) (no (unknown) (unknown) Patient admitted (units (unknown) date) for alcohol unknown) withdrawal/detox. She is s/p phenobarb dose in ED. (unknown) (no (unknown) (unknown) Patient has been (units (unknown) date) mildly hypotensive, unknown) but fluid responsive, Likely dehydration in (unknown) (no (unknown) (unknown) Patient: (units (unkno wn) date) Sarah Connors R unknown) MR#: M (unknown) (no (unknown) (unknown) Plan: (units (unkno wn) date) unknown) (unknown) (no (unknown) (unknown) Plt Count 332 (units ( unknown) date) unknown) (unknown) (no (unknown) (unknown) Plt Count 396 (units ( unknown) date) unknown) (unknown) (no (unknown) (unknown) Plt Count (units (unkn own) date) unknown) (unknown) (no (unknown) (unknown) Potassium 3.5 (units ( unknown) date) unknown) (unknown) (no (unknown) (unknown) Potassium 3.6 (units ( unknown) date) unknown) (unknown) (no (unknown) (unknown) Potassium (units (unkn own) date) unknown) (unknown) (no (unknown) (unknown) Precedex IV 0 (units ( unknown) date) mcg/kg/hr unknown) (unknown) (no (unknown) (unknown) Precedex gtt (units (u nknown) date) currently off, will unknown) continue to monitor need for precedex gtt (unknown) (no (unknown) (unknown) Precedex gtt (units (u nknown) date) turned off at 5 am- unknown) She was able to take her PO [facility] (unknown) (no (unknown) (unknown) Protocol (units (unkno wn) date) unknown) (unknown) (no (unknown) (unknown) Provider location (units (unknown) date) (State): [place] unknown) (unknown) (no (unknown) (unknown) Provider: (units (unkn own) date) Uyen Prince MD unknown) (unknown) (no (unknown) (unknown) Pulse Oximetry 95 (units (unknown) date) 95 unknown) (unknown) (no (unknown) (unknown) Pulse Oximetry 95 (units (unknown) date) 96 unknown) (unknown) (no (unknown) (unknown) Pulse Oximetry 95 (units (unknown) date) unknown) (unknown) (no (unknown) (unknown) Pulse Oximetry 96 (units (unknown) date) unknown) (unknown) (no (unknown) (unknown) Pulse Oximetry 97 (units (unknown) date) 96 unknown) (unknown) (no (unknown) (unknown) Pulse Oximetry 97 (units (unknown) date) unknown) (unknown) (no (unknown) (unknown) Pulse Oximetry 99 (units (unknown) date) 99 unknown) (unknown) (no (unknown) (unknown) Pulse Rate 69 72 (units (unknown) date) unknown) (unknown) (no (unknown) (unknown) Pulse Rate 71 (units ( unknown) date) unknown) (unknown) (no (unknown) (unknown) Pulse Rate 72 (units ( unknown) date) unknown) (unknown) (no (unknown) (unknown) Pulse Rate 75 69 (units (unknown) date) unknown) (unknown) (no (unknown) (unknown) Pulse Rate 75 75 (units (unknown) date) unknown) (unknown) (no (unknown) (unknown) Pulse Rate 75 78 (units (unknown) date) unknown) (unknown) (no (unknown) (unknown) Pulse Rate 75 (units ( unknown) date) unknown) (unknown) (no (unknown) (unknown) Pulse Rate 76 71 (units (unknown) date) unknown) (unknown) (no (unknown) (unknown) Pulse Rate 79 76 (units (unknown) date) unknown) (unknown) (no (unknown) (unknown) Q24H SANDY (units (unkno wn) date) Administration unknown) (unknown) (no (unknown) (unknown) Q6HR SANDY (units (unkno wn) date) Administration unknown) (unknown) (no (unknown) (unknown) Q8HR PRN (units (unkno wn) date) Administration unknown) (unknown) (no (unknown) (unknown) Quality TeleICU (units (unknown) date) unknown) (unknown) (no (unknown) (unknown) RBC 3.98 L (units (unk nown) date) unknown) (unknown) (no (unknown) (unknown) RBC 4.61 (units (unkno wn) date) unknown) (unknown) (no (unknown) (unknown) RBC (units (unkno wn) date) unknown) (unknown) (no (unknown) (unknown) RDW 19.5 H (units (unk nown) date) unknown) (unknown) (no (unknown) (unknown) RDW 19.7 H (units (unk nown) date) unknown) (unknown) (no (unknown) (unknown) RDW (units (unkno wn) date) unknown) (unknown) (no (unknown) (unknown) Respiratory Rate (units (unknown) date) 14 16 unknown) (unknown) (no (unknown) (unknown) Respiratory Rate (units (unknown) date) 16 16 unknown) (unknown) (no (unknown) (unknown) Respiratory Rate (units (unknown) date) 18 19 unknown) (unknown) (no (unknown) (unknown) Respiratory Rate (units (unknown) date) 18 unknown) (unknown) (no (unknown) (unknown) Respiratory Rate (units (unknown) date) 19 unknown) (unknown) (no (unknown) (unknown) Respiratory Rate (units (unknown) date) 21 20 unknown) (unknown) (no (unknown) (unknown) Respiratory Rate (units (unknown) date) 27 H unknown) (unknown) (no (unknown) (unknown) Respiratory Rate (units (unknown) date) 34 H 23 unknown) (unknown) (no (unknown) (unknown) Respiratory Rate (units (unknown) date) 37 H 16 unknown) (unknown) (no (unknown) (unknown) Respiratory Rate (units (unknown) date) 37 H unknown) (unknown) (no (unknown) (unknown) SARS-CoV-2 (PCR) (units (unknown) date) Negative unknown) (unknown) (no (unknown) (unknown) SARS-CoV-2 (PCR) (units (unknown) date) unknown) (unknown) (no (unknown) (unknown) SCD's, SQ Heparin (units (unknown) date) for DVT ppx unknown) (unknown) (no (unknown) (unknown) She remains mildly (units (unknown) date) hypotensive and unknown) urine is estefany in color, she is being treated (unknown) (no (unknown) (unknown) Signed By: (units (unk nown) date) unknown) (unknown) (no (unknown) (unknown) Sodium 145 (units (unk nown) date) unknown) (unknown) (no (unknown) (unknown) Sodium 148 H D (units (unknown) date) unknown) (unknown) (no (unknown) (unknown) Sodium Chloride IV (units (unknown) date) 08/12/22 06:59 200 unknown) mls/hr (unknown) (no (unknown) (unknown) Sodium (units (unkno wn) date) unknown) (unknown) (no (unknown) (unknown) Started on (units (unk nown) date) ceftriaxone unknown) (unknown) (no (unknown) (unknown) Status: Acute (units ( unknown) date) unknown) (unknown) (no (unknown) (unknown) Subjective (units (unk nown) date) unknown) (unknown) (no (unknown) (unknown) TITRATE SANDY 0 (units ( unknown) date) mls/hr unknown) (unknown) (no (unknown) (unknown) Teleintensivist (units (unknown) date) Progress Note unknown) (unknown) (no (unknown) (unknown) Temperature 98.6 F (units (unknown) date) unknown) (unknown) (no (unknown) (unknown) Temperature (units (un known) date) unknown) (unknown) (no (unknown) (unknown) Time Spent With (units (unknown) date) Patient unknown) (unknown) (no (unknown) (unknown) Time with patient: (units (unknown) date) less than 30 unknown) minutes (unknown) (no (unknown) (unknown) Titration (units (unkn own) date) unknown) (unknown) (no (unknown) (unknown) Total Bilirubin (units (unknown) date) 0.3 unknown) (unknown) (no (unknown) (unknown) Total Bilirubin (units (unknown) date) 0.4 unknown) (unknown) (no (unknown) (unknown) Total Bilirubin (units (unknown) date) unknown) (unknown) (no (unknown) (unknown) Total Protein 6.0 (units (unknown) date) L unknown) (unknown) (no (unknown) (unknown) Total Protein 7.7 (units (unknown) date) unknown) (unknown) (no (unknown) (unknown) Total Protein (units ( unknown) date) unknown) (unknown) (no (unknown) (unknown) Trade Name Freq (units (unknown) date) PRN Reason Stop unknown) Dose Admin (unknown) (no (unknown) (unknown) U Benzodiazepines (units (unknown) date) Scrn Positive H unknown) (unknown) (no (unknown) (unknown) U Benzodiazepines (units (unknown) date) Scrn unknown) (unknown) (no (unknown) (unknown) U Marijuana (THC) (units (unknown) date) Screen Negative unknown) (unknown) (no (unknown) (unknown) U Marijuana (THC) (units (unknown) date) Screen unknown) (unknown) (no (unknown) (unknown) U Methamphetamines (units (unknown) date) Scrn Negative unknown) (unknown) (no (unknown) (unknown) U Methamphetamines (units (unknown) date) Scrn unknown) (unknown) (no (unknown) (unknown) U Opiates 300ng/mL (units (unknown) date) cut Negative unknown) (unknown) (no (unknown) (unknown) U Opiates 300ng/mL (units (unknown) date) cut unknown) (unknown) (no (unknown) (unknown) U Tricyclic (units (un known) date) Antidepress unknown) Positive H (unknown) (no (unknown) (unknown) U Tricyclic (units (un known) date) Antidepress unknown) (unknown) (no (unknown) (unknown) UA +, urine estefany (units (unknown) date) colored c/f UTI unknown) (unknown) (no (unknown) (unknown) Unconjugated (units (u nknown) date) Bilirubin 0.0 unknown) (unknown) (no (unknown) (unknown) Unconjugated (units (u nknown) date) Bilirubin unknown) (unknown) (no (unknown) (unknown) Ur Amphetamines (units (unknown) date) Screen Negative unknown) (unknown) (no (unknown) (unknown) Ur Amphetamines (units (unknown) date) Screen unknown) (unknown) (no (unknown) (unknown) Ur Barbiturates (units (unknown) date) Screen Positive H unknown) (unknown) (no (unknown) (unknown) Ur Barbiturates (units (unknown) date) Screen unknown) (unknown) (no (unknown) (unknown) Ur Culture (units (unk nown) date) Indicated? Specimen unknown) cultured (unknown) (no (unknown) (unknown) Ur Culture (units (unk nown) date) Indicated? unknown) (unknown) (no (unknown) (unknown) Ur Leukocyte (units (u nknown) date) Esterase 1+ H unknown) (unknown) (no (unknown) (unknown) Ur Leukocyte (units (u nknown) date) Esterase unknown) (unknown) (no (unknown) (unknown) Ur MDMA Scrn (units (u nknown) date) (Ecstasy) Negative unknown) (unknown) (no (unknown) (unknown) Ur MDMA Scrn (units (u nknown) date) (Ecstasy) unknown) (unknown) (no (unknown) (unknown) Ur Oxycodone (units (u nknown) date) Screen Negative unknown) (unknown) (no (unknown) (unknown) Ur Oxycodone (units (u nknown) date) Screen unknown) (unknown) (no (unknown) (unknown) Ur Phencyclidine (units (unknown) date) Scrn Negative unknown) (unknown) (no (unknown) (unknown) Ur Phencyclidine (units (unknown) date) Scrn unknown) (unknown) (no (unknown) (unknown) Ur Specific (units (un known) date) [place] 1.015 unknown) (unknown) (no (unknown) (unknown) Ur Specific (units (un known) date) [place] unknown) (unknown) (no (unknown) (unknown) Urine Appearance (units (unknown) date) Clear unknown) (unknown) (no (unknown) (unknown) Urine Appearance (units (unknown) date) unknown) (unknown) (no (unknown) (unknown) Urine Bacteria (units (unknown) date) Many (>30) H unknown) (unknown) (no (unknown) (unknown) Urine Bacteria (units (unknown) date) unknown) (unknown) (no (unknown) (unknown) Urine Bilirubin (units (unknown) date) Negative unknown) (unknown) (no (unknown) (unknown) Urine Bilirubin (units (unknown) date) unknown) (unknown) (no (unknown) (unknown) Urine Cocaine (units ( unknown) date) Screen Negative unknown) (unknown) (no (unknown) (unknown) Urine Cocaine (units ( unknown) date) Screen unknown) (unknown) (no (unknown) (unknown) Urine Color Yellow (units (unknown) date) unknown) (unknown) (no (unknown) (unknown) Urine Color (units (un known) date) unknown) (unknown) (no (unknown) (unknown) Urine Glucose (UA) (units (unknown) date) Negative unknown) (unknown) (no (unknown) (unknown) Urine Glucose (UA) (units (unknown) date) unknown) (unknown) (no (unknown) (unknown) Urine Ketones (units ( unknown) date) Negative unknown) (unknown) (no (unknown) (unknown) Urine Ketones (units ( unknown) date) unknown) (unknown) (no (unknown) (unknown) Urine Methadone (units (unknown) date) Screen Negative unknown) (unknown) (no (unknown) (unknown) Urine Methadone (units (unknown) date) Screen unknown) (unknown) (no (unknown) (unknown) Urine Nitrate (units ( unknown) date) Positive H unknown) (unknown) (no (unknown) (unknown) Urine Nitrate (units ( unknown) date) unknown) (unknown) (no (unknown) (unknown) Urine Occult Blood (units (unknown) date) Negative unknown) (unknown) (no (unknown) (unknown) Urine Occult Blood (units (unknown) date) unknown) (unknown) (no (unknown) (unknown) Urine (units (unknown) date) Test Negative unknown) (unknown) (no (unknown) (unknown) Urine (units (unknown) date) Test unknown) (unknown) (no (unknown) (unknown) Urine Protein (units ( unknown) date) Negative unknown) (unknown) (no (unknown) (unknown) Urine Protein (units ( unknown) date) unknown) (unknown) (no (unknown) (unknown) Urine RBC None (units (unknown) date) seen unknown) (unknown) (no (unknown) (unknown) Urine RBC (units (unkn own) date) unknown) (unknown) (no (unknown) (unknown) Urine Urobilinogen (units (unknown) date) 0.2 unknown) (unknown) (no (unknown) (unknown) Urine Urobilinogen (units (unknown) date) unknown) (unknown) (no (unknown) (unknown) Urine WBC (units (unkn own) date) 10-30/hpf H unknown) (unknown) (no (unknown) (unknown) Urine WBC (units (unkn own) date) unknown) (unknown) (no (unknown) (unknown) Urine pH 6.0 (units (u nknown) date) unknown) (unknown) (no (unknown) (unknown) Urine pH (units (unkno wn) date) unknown) (unknown) (no (unknown) (unknown) VTE (units (unkno wn) date) unknown) (unknown) (no (unknown) (unknown) Visit Medications (units (unknown) date) (administered) unknown) (unknown) (no (unknown) (unknown) Vital Signs (units (un known) date) unknown) (unknown) (no (unknown) (unknown) WBC 5.1 (units (unkno wn) date) unknown) (unknown) (no (unknown) (unknown) WBC 5.2 (units (unkno wn) date) unknown) (unknown) (no (unknown) (unknown) WBC (units (unkno wn) date) unknown) (unknown) (no (unknown) (unknown) Will continue to (units (unknown) date) monitor volume unknown) responsiveness and potential need for pressors (unknown) (no (unknown) (unknown) Will restart home (units (unknown) date) PPI unknown) (unknown) (no (unknown) (unknown) Would keep in ICU (units (unknown) date) today for potential unknown) worsening of withdrawal sx and BP (unknown) (no (unknown) (unknown) [Embedded Image (units (unknown) date) Not Available] unknown) (unknown) (no (unknown) (unknown) [Rx Confirmed (units ( unknown) date) 08/01/22] unknown) (unknown) (no (unknown) (unknown) chlordiazepoxide (units (unknown) date) HCl 25 mg capsule unknown) See Rx Instructions .Route .COMPLEX #30 caps (unknown) (no (unknown) (unknown) communication: (units (unknown) date) Camera activated unknown) (unknown) (no (unknown) (unknown) dexmedeTOMIDine in (units (unknown) date) 0.9 % NaCL 400 mcg unknown) in 100 mls @ 2.699 mls/hr 08/08/22 22:48 (unknown) (no (unknown) (unknown) disulfiram 250 mg (units (unknown) date) tablet 250 mg PO unknown) DAILY #30 tabs 08/03/22 [Rx] (unknown) (no (unknown) (unknown) fluoxetine 10 mg (units (unknown) date) capsule 10 mg PO unknown) DAILY 07/13/22 [History Confirmed 08/01/22] (unknown) (no (unknown) (unknown) for UTI- Initially (units (unknown) date) recieved 1 L LR unknown) bolus and BP improved. Ordered another 1 L (unknown) (no (unknown) (unknown) hydroxyzine HCl 50 (units (unknown) date) mg tablet 50 mg PO unknown) DAILY 07/13/22 [History Confirmed (unknown) (no (unknown) (unknown) [facility] PO (units (unk nown) date) unknown) (unknown) (no (unknown) (unknown) monitoring, has (units (unknown) date) had multiple unknown) admissions for withdrawal in recent weeks. (unknown) (no (unknown) (unknown) multivitamin with (units (unknown) date) folic acid 400 mcg unknown) tablet (Tab-A-Kael) 1 tab PO DAILY #30 tabs (unknown) (no (unknown) (unknown) pantoprazole 40 mg (units (unknown) date) tablet,delayed unknown) release 40 mg PO 0700 #30 tabs 07/14/22 [Rx (unknown) (no (unknown) (unknown) possibly component (units (unknown) date) of sepsis as well unknown) (unknown) (no (unknown) (unknown) quetiapine 300 mg (units (unknown) date) tablet 300 mg PO unknown) DAILY 07/13/22 [History Confirmed 08/01/22] (unknown) (no (unknown) (unknown) setting of acute (units (unknown) date) alcohol unknown) intoxication on admission (Etoh level >300) However (unknown) (no (unknown) (unknown) thiamine (units (unkno wn) date) mononitrate (vit unknown) B1) 100 mg tablet 100 mg PO DAILY #30 tabs 07/14/22 (unknown) (no (unknown) (unknown) will order (units (unk nown) date) procalcitonin unknown) Result panel [id number] (unknown) (no (unknown) (unknown) (no value) (units (unk nown) date) unknown) (unknown) (no (unknown) (unknown) (1) Abnormal (units (u nknown) date) urinalysis: unknown) (unknown) (no (unknown) (unknown) (2) Alcohol (units (un known) date) intoxication: unknown) (unknown) (no (unknown) (unknown) (3) Alcohol (units (un known) date) withdrawal: unknown) (unknown) (no (unknown) (unknown) (past 8 hours): (units (unknown) date) unknown) (unknown) (no (unknown) (unknown) 0.2 MCG/KG/HR (units ( unknown) date) unknown) (unknown) (no (unknown) (unknown) [id number] (units (unkn own) date) unknown) (unknown) (no (unknown) (unknown) 01:00 08/09/22 (units (unknown) date) unknown) (unknown) (no (unknown) (unknown) 01:06 08/09/22 (units (unknown) date) unknown) (unknown) (no (unknown) (unknown) 01:06 (units (unkno wn) date) unknown) (unknown) (no (unknown) (unknown) 01:29 08/09/22 (units (unknown) date) unknown) (unknown) (no (unknown) (unknown) 01:29 (units (unkno wn) date) unknown) (unknown) (no (unknown) (unknown) 02:00 08/09/22 (units (unknown) date) unknown) (unknown) (no (unknown) (unknown) 07/14/22 [Rx (units (u nknown) date) Confirmed 08/01/22] unknown) (unknown) (no (unknown) (unknown) 08/01/22] (units (unkn own) date) unknown) (unknown) (no (unknown) (unknown) 08/03/22 [Rx] (units ( unknown) date) unknown) (unknown) (no (unknown) (unknown) 08/08/22 08/08/22 (units (unknown) date) 08/08/22 unknown) (unknown) (no (unknown) (unknown) 08/08/22 08/08/22 (units (unknown) date) 08/09/22 unknown) (unknown) (no (unknown) (unknown) 08/09/22 08/09/22 (units (unknown) date) 08/09/22 unknown) (unknown) (no (unknown) (unknown) 08/09/22 08/09/22 (units (unknown) date) unknown) (unknown) (no (unknown) (unknown) 08/09/22 04:16 (units (unknown) date) unknown) (unknown) (no (unknown) (unknown) 08/09/22 05:06 (units (unknown) date) unknown) (unknown) (no (unknown) (unknown) 08/09/22 0837 (units ( unknown) date) unknown) (unknown) (no (unknown) (unknown) 08/09/22 (units (unkno wn) date) unknown) (unknown) (no (unknown) (unknown) 03:00 08/09/22 (units (unknown) date) unknown) (unknown) (no (unknown) (unknown) 03:00 (units (unkno wn) date) unknown) (unknown) (no (unknown) (unknown) 03:02 08/09/22 (units (unknown) date) unknown) (unknown) (no (unknown) (unknown) 03:02 (units (unkno wn) date) unknown) (unknown) (no (unknown) (unknown) 04:00 08/09/22 (units (unknown) date) unknown) (unknown) (no (unknown) (unknown) 04:16 04:16 04:30 (units (unknown) date) unknown) (unknown) (no (unknown) (unknown) 04:20 08/09/22 (units (unknown) date) unknown) (unknown) (no (unknown) (unknown) 04:20 (units (unkno wn) date) unknown) (unknown) (no (unknown) (unknown) 04:30 04:30 (units (un known) date) unknown) (unknown) (no (unknown) (unknown) 05:00 08/09/22 (units (unknown) date) unknown) (unknown) (no (unknown) (unknown) 05:00 (units (unkno wn) date) unknown) (unknown) (no (unknown) (unknown) 05:02 08/09/22 (units (unknown) date) unknown) (unknown) (no (unknown) (unknown) 05:20 08/09/22 (units (unknown) date) unknown) (unknown) (no (unknown) (unknown) 05:20 (units (unkno wn) date) unknown) (unknown) (no (unknown) (unknown) 05:34 08/09/22 (units (unknown) date) unknown) (unknown) (no (unknown) (unknown) 05:34 (units (unkno wn) date) unknown) (unknown) (no (unknown) (unknown) 06:00 08/09/22 (units (unknown) date) unknown) (unknown) (no (unknown) (unknown) 06:24 08/09/22 (units (unknown) date) unknown) (unknown) (no (unknown) (unknown) 06:24 (units (unkno wn) date) unknown) (unknown) (no (unknown) (unknown) 07:00 08/09/22 (units (unknown) date) unknown) (unknown) (no (unknown) (unknown) 07:00 (units (unkno wn) date) unknown) (unknown) (no (unknown) (unknown) 07:35 (units (unkno wn) date) unknown) (unknown) (no (unknown) (unknown) 21:00 21:00 21:00 (units (unknown) date) unknown) (unknown) (no (unknown) (unknown) 21:00 22:30 04:16 (units (unknown) date) unknown) (unknown) (no (unknown) (unknown) ALT 51 H (units (unkno wn) date) unknown) (unknown) (no (unknown) (unknown) ALT 64 H (units (unkno wn) date) unknown) (unknown) (no (unknown) (unknown) ALT (units (unkno wn) date) unknown) (unknown) (no (unknown) (unknown) AST 288 H (units (unkn own) date) unknown) (unknown) (no (unknown) (unknown) AST 424 H (units (unkn own) date) unknown) (unknown) (no (unknown) (unknown) AST (units (unkno wn) date) unknown) (unknown) (no (unknown) (unknown) Age/Sex: 31 / F (units (unknown) date) unknown) (unknown) (no (unknown) (unknown) Albumin 3.6 (units (un known) date) unknown) (unknown) (no (unknown) (unknown) Albumin 4.4 (units (un known) date) unknown) (unknown) (no (unknown) (unknown) Albumin (units (unkno wn) date) unknown) (unknown) (no (unknown) (unknown) Albumin/Globulin (units (unknown) date) Ratio 1.3 unknown) (unknown) (no (unknown) (unknown) Albumin/Globulin (units (unknown) date) Ratio 1.5 unknown) (unknown) (no (unknown) (unknown) Albumin/Globulin (units (unknown) date) Ratio unknown) (unknown) (no (unknown) (unknown) Alcohol Withdrawal (units (unknown) date) unknown) (unknown) (no (unknown) (unknown) Alkaline (units (unkno wn) date) Phosphatase 59 unknown) (unknown) (no (unknown) (unknown) Alkaline (units (unkno wn) date) Phosphatase 71 unknown) (unknown) (no (unknown) (unknown) Alkaline (units (unkno wn) date) Phosphatase unknown) (unknown) (no (unknown) (unknown) Assessment + Plan (units (unknown) date) narrative: unknown) (unknown) (no (unknown) (unknown) Assessment + Plan (units (unknown) date) unknown) (unknown) (no (unknown) (unknown) Assessment and (units (unknown) date) plan unknown) (unknown) (no (unknown) (unknown) BUN 7 (units (unkno wn) date) unknown) (unknown) (no (unknown) (unknown) BUN 8 (units (unkno wn) date) unknown) (unknown) (no (unknown) (unknown) BUN (units (unkno wn) date) unknown) (unknown) (no (unknown) (unknown) BUN/Creatinine (units (unknown) date) Ratio 8.9 unknown) (unknown) (no (unknown) (unknown) BUN/Creatinine (units (unknown) date) Ratio 9.2 unknown) (unknown) (no (unknown) (unknown) BUN/Creatinine (units (unknown) date) Ratio unknown) (unknown) (no (unknown) (unknown) Baso # (Auto) 100 (units (unknown) date) unknown) (unknown) (no (unknown) (unknown) Baso # (Auto) (units ( unknown) date) unknown) (unknown) (no (unknown) (unknown) Baso % (Auto) 1.9 (units (unknown) date) unknown) (unknown) (no (unknown) (unknown) Baso % (Auto) 2.5 (units (unknown) date) H unknown) (unknown) (no (unknown) (unknown) Baso % (Auto) (units ( unknown) date) unknown) (unknown) (no (unknown) (unknown) Blood Pressure (units (unknown) date) 73/40 L 75/39 L unknown) (unknown) (no (unknown) (unknown) Blood Pressure (units (unknown) date) 74/40 L unknown) (unknown) (no (unknown) (unknown) Blood Pressure (units (unknown) date) 77/42 L 80/45 L unknown) (unknown) (no (unknown) (unknown) Blood Pressure (units (unknown) date) 77/47 L unknown) (unknown) (no (unknown) (unknown) Blood Pressure (units (unknown) date) 78/43 L unknown) (unknown) (no (unknown) (unknown) Blood Pressure (units (unknown) date) 78/48 L unknown) (unknown) (no (unknown) (unknown) Blood Pressure (units (unknown) date) 80/44 L 79/43 L unknown) (unknown) (no (unknown) (unknown) Blood Pressure (units (unknown) date) 82/44 L 71/42 L unknown) (unknown) (no (unknown) (unknown) Blood Pressure (units (unknown) date) 86/53 L 83/50 L unknown) (unknown) (no (unknown) (unknown) CIWA protocol with (units (unknown) date) ativan unknown) (unknown) (no (unknown) (unknown) CIWAPRN PRN (units (un known) date) Administration unknown) (unknown) (no (unknown) (unknown) Calcium 7.7 L (units ( unknown) date) unknown) (unknown) (no (unknown) (unknown) Calcium 8.4 (units (un known) date) unknown) (unknown) (no (unknown) (unknown) Calcium (units (unkno wn) date) unknown) (unknown) (no (unknown) (unknown) Carbon Dioxide 30 (units (unknown) date) unknown) (unknown) (no (unknown) (unknown) Carbon Dioxide 33 (units (unknown) date) H unknown) (unknown) (no (unknown) (unknown) Carbon Dioxide (units (unknown) date) unknown) (unknown) (no (unknown) (unknown) Cardio (units (unkno wn) date) unknown) (unknown) (no (unknown) (unknown) Ceftriaxone Sodium (units (unknown) date) 1,000 mg/ 100 mls @ unknown) 200 mls/hr 08/09/22 07:00 08/09/22 (unknown) (no (unknown) (unknown) Check LA (units (unkno wn) date) unknown) (unknown) (no (unknown) (unknown) Chlordiazepoxide (units (unknown) date) 25 Mg Capsule PO 50 unknown) mg (unknown) (no (unknown) (unknown) Chlordiazepoxide (units (unknown) date) HCl 50 mg 08/09/22 unknown) 00:00 08/09/22 06:12 (unknown) (no (unknown) (unknown) Chloride 104 (units (u nknown) date) unknown) (unknown) (no (unknown) (unknown) Chloride 107 (units (u nknown) date) unknown) (unknown) (no (unknown) (unknown) Chloride (units (unkno wn) date) unknown) (unknown) (no (unknown) (unknown) Confirmed (units (unkn own) date) 08/01/22] unknown) (unknown) (no (unknown) (unknown) Conjugated (units (unk nown) date) Bilirubin 0.0 unknown) (unknown) (no (unknown) (unknown) Conjugated (units (unk nown) date) Bilirubin unknown) (unknown) (no (unknown) (unknown) Consent obtained (units (unknown) date) for unknown) 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: Yes (unknown) (no (unknown) (unknown) Continue IV (units (un known) date) fluids, MVI, unknown) Thiamine, folate (unknown) (no (unknown) (unknown) Creatinine 0.76 (units (unknown) date) unknown) (unknown) (no (unknown) (unknown) Creatinine 0.90 (units (unknown) date) unknown) (unknown) (no (unknown) (unknown) Creatinine (units (unk nown) date) unknown) (unknown) (no (unknown) (unknown) Culture pending (units (unknown) date) unknown) (unknown) (no (unknown) (unknown) Current (units (unkno wn) date) Medications unknown) (unknown) (no (unknown) (unknown) : 1990 (units (unknown) date) Acct:[id number] unknown) (unknown) (no (unknown) (unknown) Date of Service: (units (unknown) date) 08/08/22 unknown) (unknown) (no (unknown) (unknown) Deep Vein (units (unkn own) date) Thrombosis/Pulmonar unknown) y Embolism Present on Admission: No (unknown) (no (unknown) (unknown) ETOH level high on (units (unknown) date) admission unknown) (unknown) (no (unknown) (unknown) Eos # (Auto) 0 (units (unknown) date) unknown) (unknown) (no (unknown) (unknown) Eos # (Auto) (units (u nknown) date) unknown) (unknown) (no (unknown) (unknown) Eos % (Auto) 0.7 L (units (unknown) date) unknown) (unknown) (no (unknown) (unknown) Eos % (Auto) 0.8 L (units (unknown) date) unknown) (unknown) (no (unknown) (unknown) Eos % (Auto) (units (u nknown) date) unknown) (unknown) (no (unknown) (unknown) Estimated GFR > 60 (units (unknown) date) unknown) (unknown) (no (unknown) (unknown) Estimated GFR (units ( unknown) date) unknown) (unknown) (no (unknown) (unknown) Ethyl Alcohol 393 (units (unknown) date) H unknown) (unknown) (no (unknown) (unknown) Ethyl Alcohol (units ( unknown) date) unknown) (unknown) (no (unknown) (unknown) Exam Narrative: (units (unknown) date) unknown) (unknown) (no (unknown) (unknown) Exam (units (unkno wn) date) unknown) (unknown) (no (unknown) (unknown) Generic Name Dose (units (unknown) date) Route Start Last unknown) Admin (unknown) (no (unknown) (unknown) Globulin 2.4 (units (u nknown) date) unknown) (unknown) (no (unknown) (unknown) Globulin 3.3 (units (u nknown) date) unknown) (unknown) (no (unknown) (unknown) Globulin (units (unkno wn) date) unknown) (unknown) (no (unknown) (unknown) Glucose 84 (units (unk nown) date) unknown) (unknown) (no (unknown) (unknown) Glucose 92 (units (unk nown) date) unknown) (unknown) (no (unknown) (unknown) Glucose (units (unkno wn) date) unknown) (unknown) (no (unknown) (unknown) Hct 31.4 L (units (unk nown) date) unknown) (unknown) (no (unknown) (unknown) Hct 37.0 (units (unkno wn) date) unknown) (unknown) (no (unknown) (unknown) Hct (units (unkno wn) date) unknown) (unknown) (no (unknown) (unknown) Hgb 10.1 L (units (unk nown) date) unknown) (unknown) (no (unknown) (unknown) Hgb 11.9 L (units (unk nown) date) unknown) (unknown) (no (unknown) (unknown) Hgb (units (unkno wn) date) unknown) (unknown) (no (unknown) (unknown) Home Medications (units (unknown) date) unknown) (unknown) (no (unknown) (unknown) IF CAMERA (units (unkn own) date) ACTIVATED, patient unknown) seen via real-time interactive audiovisual (unknown) (no (unknown) (unknown) Interval history: (units (unknown) date) unknown) (unknown) (no (unknown) (unknown) [facility] (units (unknown) date) [address] unknown) [place] [address] (unknown) (no (unknown) (unknown) Laboratory Results (units (unknown) date) - last 24 hr unknown) (unknown) (no (unknown) (unknown) Labs (units (unkno wn) date) unknown) (unknown) (no (unknown) (unknown) Labs: (units (unkno wn) date) unknown) (unknown) (no (unknown) (unknown) Lipase 408 H (units (u nknown) date) unknown) (unknown) (no (unknown) (unknown) Lipase (units (unkno wn) date) unknown) (unknown) (no (unknown) (unknown) Lorazepam 0 mg (units (unknown) date) 08/08/22 22:48 unknown) 08/08/22 23:00 (unknown) (no (unknown) (unknown) Lorazepam 2 Mg/Ml (units (unknown) date) Inj IV 2 mg unknown) (unknown) (no (unknown) (unknown) Lymph # (Auto) (units (unknown) date) 2600 unknown) (unknown) (no (unknown) (unknown) Lymph # (Auto) (units (unknown) date) 2800 unknown) (unknown) (no (unknown) (unknown) Lymph # (Auto) (units (unknown) date) unknown) (unknown) (no (unknown) (unknown) Lymph % (Auto) (units (unknown) date) 51.5 H unknown) (unknown) (no (unknown) (unknown) Lymph % (Auto) (units (unknown) date) 54.2 H unknown) (unknown) (no (unknown) (unknown) Lymph % (Auto) (units (unknown) date) unknown) (unknown) (no (unknown) (unknown) MAP 65, receiving (units (unknown) date) bolus unknown) (unknown) (no (unknown) (unknown) MCH 25.4 L (units (unk nown) date) unknown) (unknown) (no (unknown) (unknown) MCH 25.7 L (units (unk nown) date) unknown) (unknown) (no (unknown) (unknown) MCH (units (unkno wn) date) unknown) (unknown) (no (unknown) (unknown) MCHC 32.1 (units (unkn own) date) unknown) (unknown) (no (unknown) (unknown) MCHC 32.2 (units (unkn own) date) unknown) (unknown) (no (unknown) (unknown) MCHC (units (unkno wn) date) unknown) (unknown) (no (unknown) (unknown) MCV 79.0 L (units (unk nown) date) unknown) (unknown) (no (unknown) (unknown) MCV 80.2 (units (unkno wn) date) unknown) (unknown) (no (unknown) (unknown) MCV (units (unkno wn) date) unknown) (unknown) (no (unknown) (unknown) Magnesium 2.2 (units ( unknown) date) unknown) (unknown) (no (unknown) (unknown) Magnesium (units (unkn own) date) unknown) (unknown) (no (unknown) (unknown) Medications: (units (u nknown) date) unknown) (unknown) (no (unknown) (unknown) Yates # (Auto) 300 (units (unknown) date) unknown) (unknown) (no (unknown) (unknown) Yates # (Auto) 400 (units (unknown) date) unknown) (unknown) (no (unknown) (unknown) Yates # (Auto) (units ( unknown) date) unknown) (unknown) (no (unknown) (unknown) Yates % (Auto) 6.5 (units (unknown) date) unknown) (unknown) (no (unknown) (unknown) Yates % (Auto) 8.6 (units (unknown) date) unknown) (unknown) (no (unknown) (unknown) Yates % (Auto) (units ( unknown) date) unknown) (unknown) (no (unknown) (unknown) Narrative (units (unkn own) date) unknown) (unknown) (no (unknown) (unknown) Nausea And (units (unk nown) date) Vomiting unknown) (unknown) (no (unknown) (unknown) Neuro (units (unkno wn) date) unknown) (unknown) (no (unknown) (unknown) Neut # (Auto) 1900 (units (unknown) date) unknown) (unknown) (no (unknown) (unknown) Neut # (Auto) (units ( unknown) date) unknown) (unknown) (no (unknown) (unknown) Neut % (Auto) 36.6 (units (unknown) date) L unknown) (unknown) (no (unknown) (unknown) Neut % (Auto) 36.7 (units (unknown) date) L unknown) (unknown) (no (unknown) (unknown) Neut % (Auto) (units ( unknown) date) unknown) (unknown) (no (unknown) (unknown) No distress, (units (u nknown) date) sleeping in bed- on unknown) room air (unknown) (no (unknown) (unknown) Objective (units (unkn own) date) unknown) (unknown) (no (unknown) (unknown) Ondansetron 4 Mg/2 (units (unknown) date) Ml Inj IV 4 mg unknown) (unknown) (no (unknown) (unknown) Ondansetron HCl 4 (units (unknown) date) mg 08/08/22 22:48 unknown) 08/08/22 23:09 (unknown) (no (unknown) (unknown) Other (units (unkno wn) date) participants/roles: unknown) Bedside RN (unknown) (no (unknown) (unknown) Other: (units (unkno wn) date) unknown) (unknown) (no (unknown) (unknown) Oxygen Delivery (units (unknown) date) Method Room Air unknown) (unknown) (no (unknown) (unknown) Patient Location: (units (unknown) date) ICU unknown) (unknown) (no (unknown) (unknown) Patient admitted (units (unknown) date) for alcohol unknown) withdrawal/detox. She is s/p phenobarb dose in ED. (unknown) (no (unknown) (unknown) Patient has been (units (unknown) date) mildly hypotensive, unknown) but fluid responsive, Likely dehydration in (unknown) (no (unknown) (unknown) Patient: (units (unkno wn) date) Sarah Connors R unknown) MR#: M (unknown) (no (unknown) (unknown) Plan: (units (unkno wn) date) unknown) (unknown) (no (unknown) (unknown) Plt Count 332 (units ( unknown) date) unknown) (unknown) (no (unknown) (unknown) Plt Count 396 (units ( unknown) date) unknown) (unknown) (no (unknown) (unknown) Plt Count (units (unkn own) date) unknown) (unknown) (no (unknown) (unknown) Potassium 3.5 (units ( unknown) date) unknown) (unknown) (no (unknown) (unknown) Potassium 3.6 (units ( unknown) date) unknown) (unknown) (no (unknown) (unknown) Potassium (units (unkn own) date) unknown) (unknown) (no (unknown) (unknown) Precedex IV 0 (units ( unknown) date) mcg/kg/hr unknown) (unknown) (no (unknown) (unknown) Precedex gtt (units (u nknown) date) currently off, will unknown) continue to monitor need for precedex gtt (unknown) (no (unknown) (unknown) Precedex gtt (units (u nknown) date) turned off at 5 am- unknown) She was able to take her PO [facility] (unknown) (no (unknown) (unknown) Protocol (units (unkno wn) date) unknown) (unknown) (no (unknown) (unknown) Provider location (units (unknown) date) (State): [place] unknown) (unknown) (no (unknown) (unknown) Provider: (units (unkn own) date) Uyen Prince MD unknown) (unknown) (no (unknown) (unknown) Pulse Oximetry 95 (units (unknown) date) 95 unknown) (unknown) (no (unknown) (unknown) Pulse Oximetry 95 (units (unknown) date) 96 unknown) (unknown) (no (unknown) (unknown) Pulse Oximetry 95 (units (unknown) date) unknown) (unknown) (no (unknown) (unknown) Pulse Oximetry 96 (units (unknown) date) unknown) (unknown) (no (unknown) (unknown) Pulse Oximetry 97 (units (unknown) date) 96 unknown) (unknown) (no (unknown) (unknown) Pulse Oximetry 97 (units (unknown) date) unknown) (unknown) (no (unknown) (unknown) Pulse Oximetry 99 (units (unknown) date) 99 unknown) (unknown) (no (unknown) (unknown) Pulse Rate 69 72 (units (unknown) date) unknown) (unknown) (no (unknown) (unknown) Pulse Rate 71 (units ( unknown) date) unknown) (unknown) (no (unknown) (unknown) Pulse Rate 72 (units ( unknown) date) unknown) (unknown) (no (unknown) (unknown) Pulse Rate 75 69 (units (unknown) date) unknown) (unknown) (no (unknown) (unknown) Pulse Rate 75 75 (units (unknown) date) unknown) (unknown) (no (unknown) (unknown) Pulse Rate 75 78 (units (unknown) date) unknown) (unknown) (no (unknown) (unknown) Pulse Rate 75 (units ( unknown) date) unknown) (unknown) (no (unknown) (unknown) Pulse Rate 76 71 (units (unknown) date) unknown) (unknown) (no (unknown) (unknown) Pulse Rate 79 76 (units (unknown) date) unknown) (unknown) (no (unknown) (unknown) Q24H SANDY (units (unkno wn) date) Administration unknown) (unknown) (no (unknown) (unknown) Q6HR SANDY (units (unkno wn) date) Administration unknown) (unknown) (no (unknown) (unknown) Q8HR PRN (units (unkno wn) date) Administration unknown) (unknown) (no (unknown) (unknown) Quality TeleICU (units (unknown) date) unknown) (unknown) (no (unknown) (unknown) R this am after BP (units (unknown) date) 80's/40's unknown) (unknown) (no (unknown) (unknown) RBC 3.98 L (units (unk nown) date) unknown) (unknown) (no (unknown) (unknown) RBC 4.61 (units (unkno wn) date) unknown) (unknown) (no (unknown) (unknown) RBC (units (unkno wn) date) unknown) (unknown) (no (unknown) (unknown) RDW 19.5 H (units (unk nown) date) unknown) (unknown) (no (unknown) (unknown) RDW 19.7 H (units (unk nown) date) unknown) (unknown) (no (unknown) (unknown) RDW (units (unkno wn) date) unknown) (unknown) (no (unknown) (unknown) Respiratory Rate (units (unknown) date) 14 16 unknown) (unknown) (no (unknown) (unknown) Respiratory Rate (units (unknown) date) 16 16 unknown) (unknown) (no (unknown) (unknown) Respiratory Rate (units (unknown) date) 18 19 unknown) (unknown) (no (unknown) (unknown) Respiratory Rate (units (unknown) date) 18 unknown) (unknown) (no (unknown) (unknown) Respiratory Rate (units (unknown) date) 19 unknown) (unknown) (no (unknown) (unknown) Respiratory Rate (units (unknown) date) 21 20 unknown) (unknown) (no (unknown) (unknown) Respiratory Rate (units (unknown) date) 27 H unknown) (unknown) (no (unknown) (unknown) Respiratory Rate (units (unknown) date) 34 H 23 unknown) (unknown) (no (unknown) (unknown) Respiratory Rate (units (unknown) date) 37 H 16 unknown) (unknown) (no (unknown) (unknown) Respiratory Rate (units (unknown) date) 37 H unknown) (unknown) (no (unknown) (unknown) SARS-CoV-2 (PCR) (units (unknown) date) Negative unknown) (unknown) (no (unknown) (unknown) SARS-CoV-2 (PCR) (units (unknown) date) unknown) (unknown) (no (unknown) (unknown) SCD's, SQ Heparin (units (unknown) date) for DVT ppx unknown) (unknown) (no (unknown) (unknown) She remains mildly (units (unknown) date) hypotensive and unknown) urine is estefany in color, she is being treated (unknown) (no (unknown) (unknown) Signed (units (unkno wn) date) By:<Electronically unknown) signed by Uyen Prince MD> (unknown) (no (unknown) (unknown) Sodium 145 (units (unk nown) date) unknown) (unknown) (no (unknown) (unknown) Sodium 148 H D (units (unknown) date) unknown) (unknown) (no (unknown) (unknown) Sodium Chloride IV (units (unknown) date) 08/12/22 06:59 200 unknown) mls/hr (unknown) (no (unknown) (unknown) Sodium (units (unkno wn) date) unknown) (unknown) (no (unknown) (unknown) Started on (units (unk nown) date) ceftriaxone unknown) (unknown) (no (unknown) (unknown) Status: Acute (units ( unknown) date) unknown) (unknown) (no (unknown) (unknown) Subjective (units (unk nown) date) unknown) (unknown) (no (unknown) (unknown) TITRATE SANDY 0 (units ( unknown) date) mls/hr unknown) (unknown) (no (unknown) (unknown) Tele NSR rate 72 (units (unknown) date) unknown) (unknown) (no (unknown) (unknown) Teleintensivist (units (unknown) date) Progress Note unknown) (unknown) (no (unknown) (unknown) Temperature 98.6 F (units (unknown) date) unknown) (unknown) (no (unknown) (unknown) Temperature (units (un known) date) unknown) (unknown) (no (unknown) (unknown) Time Spent With (units (unknown) date) Patient unknown) (unknown) (no (unknown) (unknown) Time with patient: (units (unknown) date) less than 30 unknown) minutes (unknown) (no (unknown) (unknown) Titration (units (unkn own) date) unknown) (unknown) (no (unknown) (unknown) Total Bilirubin (units (unknown) date) 0.3 unknown) (unknown) (no (unknown) (unknown) Total Bilirubin (units (unknown) date) 0.4 unknown) (unknown) (no (unknown) (unknown) Total Bilirubin (units (unknown) date) unknown) (unknown) (no (unknown) (unknown) Total Protein 6.0 (units (unknown) date) L unknown) (unknown) (no (unknown) (unknown) Total Protein 7.7 (units (unknown) date) unknown) (unknown) (no (unknown) (unknown) Total Protein (units ( unknown) date) unknown) (unknown) (no (unknown) (unknown) Trade Name Freq (units (unknown) date) PRN Reason Stop unknown) Dose Admin (unknown) (no (unknown) (unknown) U Benzodiazepines (units (unknown) date) Scrn Positive H unknown) (unknown) (no (unknown) (unknown) U Benzodiazepines (units (unknown) date) Scrn unknown) (unknown) (no (unknown) (unknown) U Marijuana (THC) (units (unknown) date) Screen Negative unknown) (unknown) (no (unknown) (unknown) U Marijuana (THC) (units (unknown) date) Screen unknown) (unknown) (no (unknown) (unknown) U Methamphetamines (units (unknown) date) Scrn Negative unknown) (unknown) (no (unknown) (unknown) U Methamphetamines (units (unknown) date) Scrn unknown) (unknown) (no (unknown) (unknown) U Opiates 300ng/mL (units (unknown) date) cut Negative unknown) (unknown) (no (unknown) (unknown) U Opiates 300ng/mL (units (unknown) date) cut unknown) (unknown) (no (unknown) (unknown) U Tricyclic (units (un known) date) Antidepress unknown) Positive H (unknown) (no (unknown) (unknown) U Tricyclic (units (un known) date) Antidepress unknown) (unknown) (no (unknown) (unknown) UA +, urine estefany (units (unknown) date) colored c/f UTI unknown) (unknown) (no (unknown) (unknown) Unconjugated (units (u nknown) date) Bilirubin 0.0 unknown) (unknown) (no (unknown) (unknown) Unconjugated (units (u nknown) date) Bilirubin unknown) (unknown) (no (unknown) (unknown) Ur Amphetamines (units (unknown) date) Screen Negative unknown) (unknown) (no (unknown) (unknown) Ur Amphetamines (units (unknown) date) Screen unknown) (unknown) (no (unknown) (unknown) Ur Barbiturates (units (unknown) date) Screen Positive H unknown) (unknown) (no (unknown) (unknown) Ur Barbiturates (units (unknown) date) Screen unknown) (unknown) (no (unknown) (unknown) Ur Culture (units (unk nown) date) Indicated? Specimen unknown) cultured (unknown) (no (unknown) (unknown) Ur Culture (units (unk nown) date) Indicated? unknown) (unknown) (no (unknown) (unknown) Ur Leukocyte (units (u nknown) date) Esterase 1+ H unknown) (unknown) (no (unknown) (unknown) Ur Leukocyte (units (u nknown) date) Esterase unknown) (unknown) (no (unknown) (unknown) Ur MDMA Scrn (units (u nknown) date) (Ecstasy) Negative unknown) (unknown) (no (unknown) (unknown) Ur MDMA Scrn (units (u nknown) date) (Ecstasy) unknown) (unknown) (no (unknown) (unknown) Ur Oxycodone (units (u nknown) date) Screen Negative unknown) (unknown) (no (unknown) (unknown) Ur Oxycodone (units (u nknown) date) Screen unknown) (unknown) (no (unknown) (unknown) Ur Phencyclidine (units (unknown) date) Scrn Negative unknown) (unknown) (no (unknown) (unknown) Ur Phencyclidine (units (unknown) date) Scrn unknown) (unknown) (no (unknown) (unknown) Ur Specific (units (un known) date) [place] 1.015 unknown) (unknown) (no (unknown) (unknown) Ur Specific (units (un known) date) [place] unknown) (unknown) (no (unknown) (unknown) Urine Appearance (units (unknown) date) Clear unknown) (unknown) (no (unknown) (unknown) Urine Appearance (units (unknown) date) unknown) (unknown) (no (unknown) (unknown) Urine Bacteria (units (unknown) date) Many (>30) H unknown) (unknown) (no (unknown) (unknown) Urine Bacteria (units (unknown) date) unknown) (unknown) (no (unknown) (unknown) Urine Bilirubin (units (unknown) date) Negative unknown) (unknown) (no (unknown) (unknown) Urine Bilirubin (units (unknown) date) unknown) (unknown) (no (unknown) (unknown) Urine Cocaine (units ( unknown) date) Screen Negative unknown) (unknown) (no (unknown) (unknown) Urine Cocaine (units ( unknown) date) Screen unknown) (unknown) (no (unknown) (unknown) Urine Color Yellow (units (unknown) date) unknown) (unknown) (no (unknown) (unknown) Urine Color (units (un known) date) unknown) (unknown) (no (unknown) (unknown) Urine Glucose (UA) (units (unknown) date) Negative unknown) (unknown) (no (unknown) (unknown) Urine Glucose (UA) (units (unknown) date) unknown) (unknown) (no (unknown) (unknown) Urine Ketones (units ( unknown) date) Negative unknown) (unknown) (no (unknown) (unknown) Urine Ketones (units ( unknown) date) unknown) (unknown) (no (unknown) (unknown) Urine Methadone (units (unknown) date) Screen Negative unknown) (unknown) (no (unknown) (unknown) Urine Methadone (units (unknown) date) Screen unknown) (unknown) (no (unknown) (unknown) Urine Nitrate (units ( unknown) date) Positive H unknown) (unknown) (no (unknown) (unknown) Urine Nitrate (units ( unknown) date) unknown) (unknown) (no (unknown) (unknown) Urine Occult Blood (units (unknown) date) Negative unknown) (unknown) (no (unknown) (unknown) Urine Occult Blood (units (unknown) date) unknown) (unknown) (no (unknown) (unknown) Urine (units (unknown) date) Test Negative unknown) (unknown) (no (unknown) (unknown) Urine (units (unknown) date) Test unknown) (unknown) (no (unknown) (unknown) Urine Protein (units ( unknown) date) Negative unknown) (unknown) (no (unknown) (unknown) Urine Protein (units ( unknown) date) unknown) (unknown) (no (unknown) (unknown) Urine RBC None (units (unknown) date) seen unknown) (unknown) (no (unknown) (unknown) Urine RBC (units (unkn own) date) unknown) (unknown) (no (unknown) (unknown) Urine Urobilinogen (units (unknown) date) 0.2 unknown) (unknown) (no (unknown) (unknown) Urine Urobilinogen (units (unknown) date) unknown) (unknown) (no (unknown) (unknown) Urine WBC (units (unkn own) date) 10-30/hpf H unknown) (unknown) (no (unknown) (unknown) Urine WBC (units (unkn own) date) unknown) (unknown) (no (unknown) (unknown) Urine pH 6.0 (units (u nknown) date) unknown) (unknown) (no (unknown) (unknown) Urine pH (units (unkno wn) date) unknown) (unknown) (no (unknown) (unknown) VTE (units (unkno wn) date) unknown) (unknown) (no (unknown) (unknown) Visit Medications (units (unknown) date) (administered) unknown) (unknown) (no (unknown) (unknown) Vital Signs (units (un known) date) unknown) (unknown) (no (unknown) (unknown) WBC 5.1 (units (unkno wn) date) unknown) (unknown) (no (unknown) (unknown) WBC 5.2 (units (unkno wn) date) unknown) (unknown) (no (unknown) (unknown) WBC (units (unkno wn) date) unknown) (unknown) (no (unknown) (unknown) When more awake, (units (unknown) date) reconcile home meds unknown) and restart (unknown) (no (unknown) (unknown) Will continue to (units (unknown) date) monitor volume unknown) responsiveness and potential need for pressors (unknown) (no (unknown) (unknown) Will restart home (units (unknown) date) PPI unknown) (unknown) (no (unknown) (unknown) Would keep in ICU (units (unknown) date) today for potential unknown) worsening of withdrawal sx and BP (unknown) (no (unknown) (unknown) [Embedded Image (units (unknown) date) Not Available] unknown) (unknown) (no (unknown) (unknown) [Rx Confirmed (units ( unknown) date) 08/01/22] unknown) (unknown) (no (unknown) (unknown) chlordiazepoxide (units (unknown) date) HCl 25 mg capsule unknown) See Rx Instructions .Route .COMPLEX #30 caps (unknown) (no (unknown) (unknown) communication: (units (unknown) date) Camera activated unknown) (unknown) (no (unknown) (unknown) dexmedeTOMIDine in (units (unknown) date) 0.9 % NaCL 400 mcg unknown) in 100 mls @ 2.699 mls/hr 08/08/22 22:48 (unknown) (no (unknown) (unknown) disulfiram 250 mg (units (unknown) date) tablet 250 mg PO unknown) DAILY #30 tabs 08/03/22 [Rx] (unknown) (no (unknown) (unknown) fluoxetine 10 mg (units (unknown) date) capsule 10 mg PO unknown) DAILY 07/13/22 [History Confirmed 08/01/22] (unknown) (no (unknown) (unknown) for UTI- Initially (units (unknown) date) recieved 1 L LR unknown) bolus and BP improved. Ordered another 1 L L (unknown) (no (unknown) (unknown) hydroxyzine HCl 50 (units (unknown) date) mg tablet 50 mg PO unknown) DAILY 07/13/22 [History Confirmed (unknown) (no (unknown) (unknown) librium PO (units (unk nown) date) unknown) (unknown) (no (unknown) (unknown) monitoring, has (units (unknown) date) had multiple unknown) admissions for withdrawal in recent weeks. (unknown) (no (unknown) (unknown) multivitamin with (units (unknown) date) folic acid 400 mcg unknown) tablet (Tab-A-Kael) 1 tab PO DAILY #30 tabs (unknown) (no (unknown) (unknown) pantoprazole 40 mg (units (unknown) date) tablet,delayed unknown) release 40 mg PO 0700 #30 tabs 07/14/22 [Rx (unknown) (no (unknown) (unknown) possibly component (units (unknown) date) of sepsis as well unknown) (unknown) (no (unknown) (unknown) quetiapine 300 mg (units (unknown) date) tablet 300 mg PO unknown) DAILY 07/13/22 [History Confirmed 08/01/22] (unknown) (no (unknown) (unknown) setting of acute (units (unknown) date) alcohol unknown) intoxication on admission (Etoh level >300) However (unknown) (no (unknown) (unknown) sleeping (units (unkno wn) date) unknown) (unknown) (no (unknown) (unknown) thiamine (units (unkno wn) date) mononitrate (vit unknown) B1) 100 mg tablet 100 mg PO DAILY #30 tabs 07/14/22 (unknown) (no (unknown) (unknown) will order (units (unk nown) date) procalcitonin unknown) Result panel [id number] (unknown) (no date) (unknown) (unknown) 2.9 mmol/l (unkn own) Result panel 2479 (unknown) (no date) (unknown) (unknown) < 0.03 ng/ml (unkn own) (unknown) (no date) (unknown) (unknown) < 0.03 ng/ml (unkn own) Result panel 2480 (unknown) (no (unknown) (unknown) (no value) (units (unk nown) date) unknown) (unknown) (no (unknown) (unknown) (past 8 hours): (units (unknown) date) unknown) (unknown) (no (unknown) (unknown) -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 (units (u nknown) date) unknown) (unknown) (no (unknown) (unknown) -UA with pyuria (units (unknown) date) unknown) (unknown) (no (unknown) (unknown) -continue PPI (units ( unknown) date) unknown) (unknown) (no (unknown) (unknown) -continue ciwa (units (unknown) date) protocol, with unknown) ativan, librium 50mg q6 (unknown) (no (unknown) (unknown) -continue prozac (units (unknown) date) unknown) (unknown) (no (unknown) (unknown) -continue to trend (units (unknown) date) unknown) (unknown) (no (unknown) (unknown) -each time she has (units (unknown) date) refused rehab unknown) (unknown) (no (unknown) (unknown) -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 (units (unknown) date) unknown) (unknown) (no (unknown) (unknown) -likely secondary (units (unknown) date) to inadequate PO unknown) intake due to alcoholism (unknown) (no (unknown) (unknown) -multiple (units (unkn own) date) admissions and unknown) hospital visits for alcohol withdrawal within the last (unknown) (no (unknown) (unknown) -now off precedex (units (unknown) date) unknown) (unknown) (no (unknown) (unknown) -ordered for high (units (unknown) date) dose thiamine for unknown) prevention/treatmen t of wernicke's (unknown) (no (unknown) (unknown) -per ED she is (units (unknown) date) requesting detox unknown) after drinking heavily after discharge (unknown) (no (unknown) (unknown) -per ED she was (units (unknown) date) hallucinating and unknown) agitated on arrival, received phenobarbital (unknown) (no (unknown) (unknown) -rocephin x3 days (units (unknown) date) unknown) (unknown) (no (unknown) (unknown) -she was just (units ( unknown) date) discharged 5 days unknown) ago, refusing rehab (unknown) (no (unknown) (unknown) -suspect secondary (units (unknown) date) to alcohol unknown) withdrawal and phenobarbital and treat as above (unknown) (no (unknown) (unknown) -trend daily (units (u nknown) date) unknown) (unknown) (no (unknown) (unknown) [id number] (units (unkn own) date) unknown) (unknown) (no (unknown) (unknown) 01:00 08/09/22 (units (unknown) date) unknown) (unknown) (no (unknown) (unknown) 01:06 08/09/22 (units (unknown) date) unknown) (unknown) (no (unknown) (unknown) 01:06 (units (unkno wn) date) unknown) (unknown) (no (unknown) (unknown) 01:29 08/09/22 (units (unknown) date) unknown) (unknown) (no (unknown) (unknown) 01:29 (units (unkno wn) date) unknown) (unknown) (no (unknown) (unknown) 02:00 08/09/22 (units (unknown) date) unknown) (unknown) (no (unknown) (unknown) 08/08/22 08/08/22 (units (unknown) date) 08/08/22 unknown) (unknown) (no (unknown) (unknown) 08/08/22 08/08/22 (units (unknown) date) 08/09/22 unknown) (unknown) (no (unknown) (unknown) 08/09/22 08/09/22 (units (unknown) date) 08/09/22 unknown) (unknown) (no (unknown) (unknown) 08/09/22 08/09/22 (units (unknown) date) unknown) (unknown) (no (unknown) (unknown) 08/09/22 04:16 (units (unknown) date) unknown) (unknown) (no (unknown) (unknown) 08/09/22 1035 (units ( unknown) date) unknown) (unknown) (no (unknown) (unknown) 08/09/22 (units (unkno wn) date) unknown) (unknown) (no (unknown) (unknown) 03:00 08/09/22 (units (unknown) date) unknown) (unknown) (no (unknown) (unknown) 03:00 (units (unkno wn) date) unknown) (unknown) (no (unknown) (unknown) 03:02 08/09/22 (units (unknown) date) unknown) (unknown) (no (unknown) (unknown) 03:02 (units (unkno wn) date) unknown) (unknown) (no (unknown) (unknown) 04:00 08/09/22 (units (unknown) date) unknown) (unknown) (no (unknown) (unknown) 04:16 04:16 04:30 (units (unknown) date) unknown) (unknown) (no (unknown) (unknown) 04:20 08/09/22 (units (unknown) date) unknown) (unknown) (no (unknown) (unknown) 04:20 (units (unkno wn) date) unknown) (unknown) (no (unknown) (unknown) 04:30 04:30 (units (un known) date) unknown) (unknown) (no (unknown) (unknown) 05:00 08/09/22 (units (unknown) date) unknown) (unknown) (no (unknown) (unknown) 05:00 (units (unkno wn) date) unknown) (unknown) (no (unknown) (unknown) 05:02 08/09/22 (units (unknown) date) unknown) (unknown) (no (unknown) (unknown) 05:20 08/09/22 (units (unknown) date) unknown) (unknown) (no (unknown) (unknown) 05:20 (units (unkno wn) date) unknown) (unknown) (no (unknown) (unknown) 05:34 08/09/22 (units (unknown) date) unknown) (unknown) (no (unknown) (unknown) 05:34 (units (unkno wn) date) unknown) (unknown) (no (unknown) (unknown) 06:00 08/09/22 (units (unknown) date) unknown) (unknown) (no (unknown) (unknown) 06:24 08/09/22 (units (unknown) date) unknown) (unknown) (no (unknown) (unknown) 06:24 (units (unkno wn) date) unknown) (unknown) (no (unknown) (unknown) 07:00 08/09/22 (units (unknown) date) unknown) (unknown) (no (unknown) (unknown) 07:00 (units (unkno wn) date) unknown) (unknown) (no (unknown) (unknown) 1. Acute alcohol (units (unknown) date) withdrawal with unknown) DTs, improving (unknown) (no (unknown) (unknown) 2. Acute (units (unkno wn) date) encephalopathy, unknown) resolved (unknown) (no (unknown) (unknown) 21:00 21:00 21:00 (units (unknown) date) unknown) (unknown) (no (unknown) (unknown) 21:00 22:30 04:16 (units (unknown) date) unknown) (unknown) (no (unknown) (unknown) 3. Hypernatremia, (units (unknown) date) resolved unknown) (unknown) (no (unknown) (unknown) 4. Depression and (units (unknown) date) anxiety unknown) (unknown) (no (unknown) (unknown) 5. Anemia, chronic (units (unknown) date) unknown) (unknown) (no (unknown) (unknown) 6. GERD (units (unkno wn) date) unknown) (unknown) (no (unknown) (unknown) 7. UTI (units (unkno wn) date) unknown) (unknown) (no (unknown) (unknown) ABD: soft, (units (unk nown) date) nontender, unknown) nondistended, no organomegaly (unknown) (no (unknown) (unknown) ALT 51 H (units (unkno wn) date) unknown) (unknown) (no (unknown) (unknown) ALT 64 H (units (unkno wn) date) unknown) (unknown) (no (unknown) (unknown) ALT (units (unkno wn) date) unknown) (unknown) (no (unknown) (unknown) AST 288 H (units (unkn own) date) unknown) (unknown) (no (unknown) (unknown) AST 424 H (units (unkn own) date) unknown) (unknown) (no (unknown) (unknown) AST (units (unkno wn) date) unknown) (unknown) (no (unknown) (unknown) Age/Sex: 31 / F (units (unknown) date) unknown) (unknown) (no (unknown) (unknown) Albumin 3.6 (units (un known) date) unknown) (unknown) (no (unknown) (unknown) Albumin 4.4 (units (un known) date) unknown) (unknown) (no (unknown) (unknown) Albumin (units (unkno wn) date) unknown) (unknown) (no (unknown) (unknown) Albumin/Globulin (units (unknown) date) Ratio 1.3 unknown) (unknown) (no (unknown) (unknown) Albumin/Globulin (units (unknown) date) Ratio 1.5 unknown) (unknown) (no (unknown) (unknown) Albumin/Globulin (units (unknown) date) Ratio unknown) (unknown) (no (unknown) (unknown) Alcohol withdrawal (units (unknown) date) delirium, acute, unknown) hyperactive (unknown) (no (unknown) (unknown) Alcoholism (units (unk nown) date) unknown) (unknown) (no (unknown) (unknown) Alkaline (units (unkno wn) date) Phosphatase 59 unknown) (unknown) (no (unknown) (unknown) Alkaline (units (unkno wn) date) Phosphatase 71 unknown) (unknown) (no (unknown) (unknown) Alkaline (units (unkno wn) date) Phosphatase unknown) (unknown) (no (unknown) (unknown) Anemia (-2018) (units (unknown) date) unknown) (unknown) (no (unknown) (unknown) Assessment + Plan (units (unknown) date) narrative: unknown) (unknown) (no (unknown) (unknown) Assessment + Plan (units (unknown) date) unknown) (unknown) (no (unknown) (unknown) BP low this (units (un known) date) aimee at unknown) 70's/40's. Received 2L boluses and improved to 90/50's. (unknown) (no (unknown) (unknown) BUN 7 (units (unkno wn) date) unknown) (unknown) (no (unknown) (unknown) BUN 8 (units (unkno wn) date) unknown) (unknown) (no (unknown) (unknown) BUN (units (unkno wn) date) unknown) (unknown) (no (unknown) (unknown) BUN/Creatinine (units (unknown) date) Ratio 8.9 unknown) (unknown) (no (unknown) (unknown) BUN/Creatinine (units (unknown) date) Ratio 9.2 unknown) (unknown) (no (unknown) (unknown) BUN/Creatinine (units (unknown) date) Ratio unknown) (unknown) (no (unknown) (unknown) Baso # (Auto) 100 (units (unknown) date) unknown) (unknown) (no (unknown) (unknown) Baso # (Auto) (units ( unknown) date) unknown) (unknown) (no (unknown) (unknown) Baso % (Auto) 1.9 (units (unknown) date) unknown) (unknown) (no (unknown) (unknown) Baso % (Auto) 2.5 (units (unknown) date) H unknown) (unknown) (no (unknown) (unknown) Baso % (Auto) (units ( unknown) date) unknown) (unknown) (no (unknown) (unknown) Blood Pressure (units (unknown) date) 73/40 L 75/39 L unknown) (unknown) (no (unknown) (unknown) Blood Pressure (units (unknown) date) 74/40 L unknown) (unknown) (no (unknown) (unknown) Blood Pressure (units (unknown) date) 77/42 L 80/45 L unknown) (unknown) (no (unknown) (unknown) Blood Pressure (units (unknown) date) 77/47 L unknown) (unknown) (no (unknown) (unknown) Blood Pressure (units (unknown) date) 78/43 L unknown) (unknown) (no (unknown) (unknown) Blood Pressure (units (unknown) date) 78/48 L unknown) (unknown) (no (unknown) (unknown) Blood Pressure (units (unknown) date) 80/44 L 79/43 L unknown) (unknown) (no (unknown) (unknown) Blood Pressure (units (unknown) date) 82/44 L 71/42 L unknown) (unknown) (no (unknown) (unknown) Blood Pressure (units (unknown) date) 86/53 L 83/50 L unknown) (unknown) (no (unknown) (unknown) CODE: Full (units (unk nown) date) unknown) (unknown) (no (unknown) (unknown) CV: regular rate (units (unknown) date) and rhythm, no unknown) murmurs (unknown) (no (unknown) (unknown) Calcium 7.7 L (units ( unknown) date) unknown) (unknown) (no (unknown) (unknown) Calcium 8.4 (units (un known) date) unknown) (unknown) (no (unknown) (unknown) Calcium (units (unkno wn) date) unknown) (unknown) (no (unknown) (unknown) Carbon Dioxide 30 (units (unknown) date) unknown) (unknown) (no (unknown) (unknown) Carbon Dioxide 33 (units (unknown) date) H unknown) (unknown) (no (unknown) (unknown) Carbon Dioxide (units (unknown) date) unknown) (unknown) (no (unknown) (unknown) Chloride 104 (units (u nknown) date) unknown) (unknown) (no (unknown) (unknown) Chloride 107 (units (u nknown) date) unknown) (unknown) (no (unknown) (unknown) Chloride (units (unkno wn) date) unknown) (unknown) (no (unknown) (unknown) Conjugated (units (unk nown) date) Bilirubin 0.0 unknown) (unknown) (no (unknown) (unknown) Conjugated (units (unk nown) date) Bilirubin unknown) (unknown) (no (unknown) (unknown) Creatinine 0.76 (units (unknown) date) unknown) (unknown) (no (unknown) (unknown) Creatinine 0.90 (units (unknown) date) unknown) (unknown) (no (unknown) (unknown) Creatinine (units (unk nown) date) unknown) (unknown) (no (unknown) (unknown) : 1990 (units (unknown) date) Acct:[id number] unknown) (unknown) (no (unknown) (unknown) Date of Service: (units (unknown) date) 08/08/22 unknown) (unknown) (no (unknown) (unknown) Deep Vein (units (unkn own) date) Thrombosis/Pulmonar unknown) y Embolism Present on Admission: No (unknown) (no (unknown) (unknown) Dispo: Likely (units ( unknown) date) intpatient 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 (unknown) (no (unknown) (unknown) EXT: warm and well (units (unknown) date) perfused with no unknown) edema (unknown) (no (unknown) (unknown) Eos # (Auto) 0 (units (unknown) date) unknown) (unknown) (no (unknown) (unknown) Eos # (Auto) (units (u nknown) date) unknown) (unknown) (no (unknown) (unknown) Eos % (Auto) 0.7 L (units (unknown) date) unknown) (unknown) (no (unknown) (unknown) Eos % (Auto) 0.8 L (units (unknown) date) unknown) (unknown) (no (unknown) (unknown) Eos % (Auto) (units (u nknown) date) unknown) (unknown) (no (unknown) (unknown) Estimated GFR > 60 (units (unknown) date) unknown) (unknown) (no (unknown) (unknown) Estimated GFR (units ( unknown) date) unknown) (unknown) (no (unknown) (unknown) Ethyl Alcohol 393 (units (unknown) date) H unknown) (unknown) (no (unknown) (unknown) Ethyl Alcohol (units ( unknown) date) unknown) (unknown) (no (unknown) (unknown) Exam Narrative: (units (unknown) date) unknown) (unknown) (no (unknown) (unknown) Exam (units (unkno wn) date) unknown) (unknown) (no (unknown) (unknown) Family History (units (unknown) date) (Reviewed 08/09/22 unknown) @ 05:03 by Roberto Vasquez MD) (unknown) (no (unknown) (unknown) Family/Other (units (u nknown) date) Alcoholism unknown) (unknown) (no (unknown) (unknown) Family/Other (units (u nknown) date) Diabetes mellitus unknown) (unknown) (no (unknown) (unknown) Father Alcoholism (units (unknown) date) unknown) (unknown) (no (unknown) (unknown) GEN: no distress (units (unknown) date) unknown) (unknown) (no (unknown) (unknown) Globulin 2.4 (units (u nknown) date) unknown) (unknown) (no (unknown) (unknown) Globulin 3.3 (units (u nknown) date) unknown) (unknown) (no (unknown) (unknown) Globulin (units (unkno wn) date) unknown) (unknown) (no (unknown) (unknown) Glucose 84 (units (unk nown) date) unknown) (unknown) (no (unknown) (unknown) Glucose 92 (units (unk nown) date) unknown) (unknown) (no (unknown) (unknown) Glucose (units (unkno wn) date) unknown) (unknown) (no [...] extraction (-2013) unknown) (unknown) (no (unknown) (unknown) HEENT: moist (units (u nknown) date) mucous membranes, unknown) PERRL (unknown) (no (unknown) (unknown) Hct 31.4 L (units (unk nown) date) unknown) (unknown) (no (unknown) (unknown) Hct 37.0 (units (unkno wn) date) unknown) (unknown) (no (unknown) (unknown) Hct (units (unkno wn) date) unknown) (unknown) (no (unknown) (unknown) Hgb 10.1 L (units (unk nown) date) unknown) (unknown) (no (unknown) (unknown) Hgb 11.9 L (units (unk nown) date) unknown) (unknown) (no (unknown) (unknown) Hgb (units (unkno wn) date) unknown) (unknown) (no (unknown) (unknown) Insomnia (units (unkno wn) date) unknown) (unknown) (no (unknown) (unknown) Interval history: (units (unknown) date) unknown) (unknown) (no (unknown) (unknown) [facility] (units (unknown) date) [address] unknown) [place] [address] (unknown) (no (unknown) (unknown) Laboratory Results (units (unknown) date) - last 24 hr unknown) (unknown) (no (unknown) (unknown) Labs (units (unkno wn) date) unknown) (unknown) (no (unknown) (unknown) Labs: (units (unkno wn) date) unknown) (unknown) (no (unknown) (unknown) Lipase 408 H (units (u nknown) date) unknown) (unknown) (no (unknown) (unknown) Lipase (units (unkno wn) date) unknown) (unknown) (no (unknown) (unknown) Lymph # (Auto) (units (unknown) date) 2600 unknown) (unknown) (no (unknown) (unknown) Lymph # (Auto) (units (unknown) date) 2800 unknown) (unknown) (no (unknown) (unknown) Lymph # (Auto) (units (unknown) date) unknown) (unknown) (no (unknown) (unknown) Lymph % (Auto) (units (unknown) date) 51.5 H unknown) (unknown) (no (unknown) (unknown) Lymph % (Auto) (units (unknown) date) 54.2 H unknown) (unknown) (no (unknown) (unknown) Lymph % (Auto) (units (unknown) date) unknown) (unknown) (no (unknown) (unknown) MCH 25.4 L (units (unk nown) date) unknown) (unknown) (no (unknown) (unknown) MCH 25.7 L (units (unk nown) date) unknown) (unknown) (no (unknown) (unknown) MCH (units (unkno wn) date) unknown) (unknown) (no (unknown) (unknown) MCHC 32.1 (units (unkn own) date) unknown) (unknown) (no (unknown) (unknown) MCHC 32.2 (units (unkn own) date) unknown) (unknown) (no (unknown) (unknown) MCHC (units (unkno wn) date) unknown) (unknown) (no (unknown) (unknown) MCV 79.0 L (units (unk nown) date) unknown) (unknown) (no (unknown) (unknown) MCV 80.2 (units (unkno wn) date) unknown) (unknown) (no (unknown) (unknown) MCV (units (unkno wn) date) unknown) (unknown) (no (unknown) (unknown) Magnesium 2.2 (units ( unknown) date) unknown) (unknown) (no (unknown) (unknown) Magnesium (units (unkn own) date) unknown) (unknown) (no (unknown) (unknown) Medical History (units (unknown) date) (Reviewed 08/09/22 unknown) @ 05:03 by Roberto Vasquez MD) (unknown) (no (unknown) (unknown) Menometrorrhagia (units (unknown) date) unknown) (unknown) (no (unknown) (unknown) Yates # (Auto) 300 (units (unknown) date) unknown) (unknown) (no (unknown) (unknown) Yates # (Auto) 400 (units (unknown) date) unknown) (unknown) (no (unknown) (unknown) Yates # (Auto) (units ( unknown) date) unknown) (unknown) (no (unknown) (unknown) Yates % (Auto) 6.5 (units (unknown) date) unknown) (unknown) (no (unknown) (unknown) Yates % (Auto) 8.6 (units (unknown) date) unknown) (unknown) (no (unknown) (unknown) Yates % (Auto) (units ( unknown) date) unknown) (unknown) (no (unknown) (unknown) Mother Diabetes (units (unknown) date) mellitus unknown) (unknown) (no (unknown) (unknown) NECK: trachea (units ( unknown) date) midline, no JVD unknown) (unknown) (no (unknown) (unknown) NEURO: awake and (units (unknown) date) alert, no focal unknown) deficits (unknown) (no (unknown) (unknown) Narrative (units (unkn own) date) unknown) (unknown) (no (unknown) (unknown) Neut # (Auto) 1900 (units (unknown) date) unknown) (unknown) (no (unknown) (unknown) Neut # (Auto) (units ( unknown) date) unknown) (unknown) (no (unknown) (unknown) Neut % (Auto) 36.6 (units (unknown) date) L unknown) (unknown) (no (unknown) (unknown) Neut % (Auto) 36.7 (units (unknown) date) L unknown) (unknown) (no (unknown) (unknown) Neut % (Auto) (units ( unknown) date) unknown) (unknown) (no (unknown) (unknown) Obesity (units (unkno wn) date) unknown) (unknown) (no (unknown) (unknown) Objective (units (unkn own) date) unknown) (unknown) (no (unknown) (unknown) Overweight (units (unk nown) date) unknown) (unknown) (no (unknown) (unknown) Oxygen Delivery (units (unknown) date) Method Room Air unknown) (unknown) (no (unknown) (unknown) PFSH (units (unkno wn) date) unknown) (unknown) (no (unknown) (unknown) PULM: clear (units (un known) date) bilaterally, no unknown) wheezes, rhonchi, rales (unknown) (no (unknown) (unknown) Patient: (units (unkno wn) date) Sarah Connors R unknown) MR#: M (unknown) (no (unknown) (unknown) Plt Count 332 (units ( unknown) date) unknown) (unknown) (no (unknown) (unknown) Plt Count 396 (units ( unknown) date) unknown) (unknown) (no (unknown) (unknown) Plt Count (units (unkn own) date) unknown) (unknown) (no (unknown) (unknown) Potassium 3.5 (units ( unknown) date) unknown) (unknown) (no (unknown) (unknown) Potassium 3.6 (units ( unknown) date) unknown) (unknown) (no (unknown) (unknown) Potassium (units (unkn own) date) unknown) (unknown) (no (unknown) (unknown) Procal negative. (units (unknown) date) WBC negative. unknown) Patient now off precedex and awake and alert. She (unknown) (no (unknown) (unknown) Progress Note (units ( unknown) date) unknown) (unknown) (no (unknown) (unknown) Provider: (units (unkn own) date) Jabari Sena unknown) D.O. (unknown) (no (unknown) (unknown) Proxy: Rober (units (unknown) date) Dory, spouse unknown) (unknown) (no (unknown) (unknown) Pulse Oximetry 95 (units (unknown) date) 95 unknown) (unknown) (no (unknown) (unknown) Pulse Oximetry 95 (units (unknown) date) 96 unknown) (unknown) (no (unknown) (unknown) Pulse Oximetry 95 (units (unknown) date) unknown) (unknown) (no (unknown) (unknown) Pulse Oximetry 96 (units (unknown) date) unknown) (unknown) (no (unknown) (unknown) Pulse Oximetry 97 (units (unknown) date) 96 unknown) (unknown) (no (unknown) (unknown) Pulse Oximetry 97 (units (unknown) date) unknown) (unknown) (no (unknown) (unknown) Pulse Oximetry 99 (units (unknown) date) 99 unknown) (unknown) (no (unknown) (unknown) Pulse Rate 69 72 (units (unknown) date) unknown) (unknown) (no (unknown) (unknown) Pulse Rate 71 (units ( unknown) date) unknown) (unknown) (no (unknown) (unknown) Pulse Rate 72 (units ( unknown) date) unknown) (unknown) (no (unknown) (unknown) Pulse Rate 75 69 (units (unknown) date) unknown) (unknown) (no (unknown) (unknown) Pulse Rate 75 75 (units (unknown) date) unknown) (unknown) (no (unknown) (unknown) Pulse Rate 75 78 (units (unknown) date) unknown) (unknown) (no (unknown) (unknown) Pulse Rate 75 (units ( unknown) date) unknown) (unknown) (no (unknown) (unknown) Pulse Rate 76 71 (units (unknown) date) unknown) (unknown) (no (unknown) (unknown) Pulse Rate 79 76 (units (unknown) date) unknown) (unknown) (no (unknown) (unknown) Quality (units (unkno wn) date) unknown) (unknown) (no (unknown) (unknown) RBC 3.98 L (units (unk nown) date) unknown) (unknown) (no (unknown) (unknown) RBC 4.61 (units (unkno wn) date) unknown) (unknown) (no (unknown) (unknown) RBC (units (unkno wn) date) unknown) (unknown) (no (unknown) (unknown) RDW 19.5 H (units (unk nown) date) unknown) (unknown) (no (unknown) (unknown) RDW 19.7 H (units (unk nown) date) unknown) (unknown) (no (unknown) (unknown) RDW (units (unkno wn) date) unknown) (unknown) (no (unknown) (unknown) Respiratory Rate (units (unknown) date) 14 16 unknown) (unknown) (no (unknown) (unknown) Respiratory Rate (units (unknown) date) 16 16 unknown) (unknown) (no (unknown) (unknown) Respiratory Rate (units (unknown) date) 18 19 unknown) (unknown) (no (unknown) (unknown) Respiratory Rate (units (unknown) date) 18 unknown) (unknown) (no (unknown) (unknown) Respiratory Rate (units (unknown) date) 19 unknown) (unknown) (no (unknown) (unknown) Respiratory Rate (units (unknown) date) 21 20 unknown) (unknown) (no (unknown) (unknown) Respiratory Rate (units (unknown) date) 27 H unknown) (unknown) (no (unknown) (unknown) Respiratory Rate (units (unknown) date) 34 H 23 unknown) (unknown) (no (unknown) (unknown) Respiratory Rate (units (unknown) date) 37 H 16 unknown) (unknown) (no (unknown) (unknown) Respiratory Rate (units (unknown) date) 37 H unknown) (unknown) (no (unknown) (unknown) S/P myringotomy (units (unknown) date) with insertion of unknown) tube (unknown) (no (unknown) (unknown) SARS-CoV-2 (PCR) (units (unknown) date) Negative unknown) (unknown) (no (unknown) (unknown) SARS-CoV-2 (PCR) (units (unknown) date) unknown) (unknown) (no (unknown) (unknown) (spontaneous (units (unknown) date) vaginal delivery) unknown) (-09/05/18) (unknown) (no (unknown) (unknown) Signed (units (unkno wn) date) By:<Electronically unknown) signed by Jabari Sena D.O.> (unknown) (no (unknown) (unknown) Smoker (units (unkno wn) date) unknown) (unknown) (no (unknown) (unknown) Smoking Status: (units (unknown) date) Former smoker unknown) (unknown) (no (unknown) (unknown) Social History (units (unknown) date) (Reviewed 08/09/22 unknown) @ 05:03 by Roberto Vasquez MD) (unknown) (no (unknown) (unknown) Sodium 145 (units (unk nown) date) unknown) (unknown) (no (unknown) (unknown) Sodium 148 H D (units (unknown) date) unknown) (unknown) (no (unknown) (unknown) Sodium (units (unkno wn) date) unknown) (unknown) (no (unknown) (unknown) Subjective (units (unk nown) date) unknown) (unknown) (no (unknown) (unknown) Surgical History (units (unknown) date) (Reviewed 08/09/22 unknown) @ 05:03 by Roberto Vasquez MD) (unknown) (no (unknown) (unknown) Temperature 98.6 F (units (unknown) date) unknown) (unknown) (no (unknown) (unknown) Temperature (units (un known) date) unknown) (unknown) (no (unknown) (unknown) Total Bilirubin (units (unknown) date) 0.3 unknown) (unknown) (no (unknown) (unknown) Total Bilirubin (units (unknown) date) 0.4 unknown) (unknown) (no (unknown) (unknown) Total Bilirubin (units (unknown) date) unknown) (unknown) (no (unknown) (unknown) Total Protein 6.0 (units (unknown) date) L unknown) (unknown) (no (unknown) (unknown) Total Protein 7.7 (units (unknown) date) unknown) (unknown) (no (unknown) (unknown) Total Protein (units ( unknown) date) unknown) (unknown) (no (unknown) (unknown) U Benzodiazepines (units (unknown) date) Scrn Positive H unknown) (unknown) (no (unknown) (unknown) U Benzodiazepines (units (unknown) date) Scrn unknown) (unknown) (no (unknown) (unknown) U Marijuana (THC) (units (unknown) date) Screen Negative unknown) (unknown) (no (unknown) (unknown) U Marijuana (THC) (units (unknown) date) Screen unknown) (unknown) (no (unknown) (unknown) U Methamphetamines (units (unknown) date) Scrn Negative unknown) (unknown) (no (unknown) (unknown) U Methamphetamines (units (unknown) date) Scrn unknown) (unknown) (no (unknown) (unknown) U Opiates 300ng/mL (units (unknown) date) cut Negative unknown) (unknown) (no (unknown) (unknown) U Opiates 300ng/mL (units (unknown) date) cut unknown) (unknown) (no (unknown) (unknown) U Tricyclic (units (un known) date) Antidepress unknown) Positive H (unknown) (no (unknown) (unknown) U Tricyclic (units (un known) date) Antidepress unknown) (unknown) (no (unknown) (unknown) Unconjugated (units (u nknown) date) Bilirubin 0.0 unknown) (unknown) (no (unknown) (unknown) Unconjugated (units (u nknown) date) Bilirubin unknown) (unknown) (no (unknown) (unknown) Ur Amphetamines (units (unknown) date) Screen Negative unknown) (unknown) (no (unknown) (unknown) Ur Amphetamines (units (unknown) date) Screen unknown) (unknown) (no (unknown) (unknown) Ur Barbiturates (units (unknown) date) Screen Positive H unknown) (unknown) (no (unknown) (unknown) Ur Barbiturates (units (unknown) date) Screen unknown) (unknown) (no (unknown) (unknown) Ur Culture (units (unk nown) date) Indicated? Specimen unknown) cultured (unknown) (no (unknown) (unknown) Ur Culture (units (unk nown) date) Indicated? unknown) (unknown) (no (unknown) (unknown) Ur Leukocyte (units (u nknown) date) Esterase 1+ H unknown) (unknown) (no (unknown) (unknown) Ur Leukocyte (units (u nknown) date) Esterase unknown) (unknown) (no (unknown) (unknown) Ur MDMA Scrn (units (u nknown) date) (Ecstasy) Negative unknown) (unknown) (no (unknown) (unknown) Ur MDMA Scrn (units (u nknown) date) (Ecstasy) unknown) (unknown) (no (unknown) (unknown) Ur Oxycodone (units (u nknown) date) Screen Negative unknown) (unknown) (no (unknown) (unknown) Ur Oxycodone (units (u nknown) date) Screen unknown) (unknown) (no (unknown) (unknown) Ur Phencyclidine (units (unknown) date) Scrn Negative unknown) (unknown) (no (unknown) (unknown) Ur Phencyclidine (units (unknown) date) Scrn unknown) (unknown) (no (unknown) (unknown) Ur Specific (units (un known) date) [place] 1.015 unknown) (unknown) (no (unknown) (unknown) Ur Specific (units (un known) date) [place] unknown) (unknown) (no (unknown) (unknown) Urine Appearance (units (unknown) date) Clear unknown) (unknown) (no (unknown) (unknown) Urine Appearance (units (unknown) date) unknown) (unknown) (no (unknown) (unknown) Urine Bacteria (units (unknown) date) Many (>30) H unknown) (unknown) (no (unknown) (unknown) Urine Bacteria (units (unknown) date) unknown) (unknown) (no (unknown) (unknown) Urine Bilirubin (units (unknown) date) Negative unknown) (unknown) (no (unknown) (unknown) Urine Bilirubin (units (unknown) date) unknown) (unknown) (no (unknown) (unknown) Urine Cocaine (units ( unknown) date) Screen Negative unknown) (unknown) (no (unknown) (unknown) Urine Cocaine (units ( unknown) date) Screen unknown) (unknown) (no (unknown) (unknown) Urine Color Yellow (units (unknown) date) unknown) (unknown) (no (unknown) (unknown) Urine Color (units (un known) date) unknown) (unknown) (no (unknown) (unknown) Urine Glucose (UA) (units (unknown) date) Negative unknown) (unknown) (no (unknown) (unknown) Urine Glucose (UA) (units (unknown) date) unknown) (unknown) (no (unknown) (unknown) Urine Ketones (units ( unknown) date) Negative unknown) (unknown) (no (unknown) (unknown) Urine Ketones (units ( unknown) date) unknown) (unknown) (no (unknown) (unknown) Urine Methadone (units (unknown) date) Screen Negative unknown) (unknown) (no (unknown) (unknown) Urine Methadone (units (unknown) date) Screen unknown) (unknown) (no (unknown) (unknown) Urine Nitrate (units ( unknown) date) Positive H unknown) (unknown) (no (unknown) (unknown) Urine Nitrate (units ( unknown) date) unknown) (unknown) (no (unknown) (unknown) Urine Occult Blood (units (unknown) date) Negative unknown) (unknown) (no (unknown) (unknown) Urine Occult Blood (units (unknown) date) unknown) (unknown) (no (unknown) (unknown) Urine (units (unknown) date) Test Negative unknown) (unknown) (no (unknown) (unknown) Urine (units (unknown) date) Test unknown) (unknown) (no (unknown) (unknown) Urine Protein (units ( unknown) date) Negative unknown) (unknown) (no (unknown) (unknown) Urine Protein (units ( unknown) date) unknown) (unknown) (no (unknown) (unknown) Urine RBC None (units (unknown) date) seen unknown) (unknown) (no (unknown) (unknown) Urine RBC (units (unkn own) date) unknown) (unknown) (no (unknown) (unknown) Urine Urobilinogen (units (unknown) date) 0.2 unknown) (unknown) (no (unknown) (unknown) Urine Urobilinogen (units (unknown) date) unknown) (unknown) (no (unknown) (unknown) Urine WBC (units (unkn own) date) 10-30/hpf H unknown) (unknown) (no (unknown) (unknown) Urine WBC (units (unkn own) date) unknown) (unknown) (no (unknown) (unknown) Urine pH 6.0 (units (u nknown) date) unknown) (unknown) (no (unknown) (unknown) Urine pH (units (unkno wn) date) unknown) (unknown) (no (unknown) (unknown) VTE (units (unkno wn) date) unknown) (unknown) (no (unknown) (unknown) Vital Signs (units (un known) date) unknown) (unknown) (no (unknown) (unknown) WBC 5.1 (units (unkno wn) date) unknown) (unknown) (no (unknown) (unknown) WBC 5.2 (units (unkno wn) date) unknown) (unknown) (no (unknown) (unknown) WBC (units (unkno wn) date) unknown) (unknown) (no (unknown) (unknown) [Embedded Image (units (unknown) date) Not Available] unknown) (unknown) (no (unknown) (unknown) alcohol intake: (units (unknown) date) current unknown) (unknown) (no (unknown) (unknown) current (units (unkno wn) date) occupational unknown) exposures/hazards: Yes (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 with Pandemic ) (unknown) (no (unknown) (unknown) education level: (units (unknown) date) college unknown) (unknown) (no (unknown) (unknown) renee/zoroastrianism: (units (unknown) date) Buddhist unknown) (unknown) (no (unknown) (unknown) has no complaints (units (unknown) date) and is willing to unknown) go to detox. (unknown) (no (unknown) (unknown) household members: (units (unknown) date) significant other unknown) (unknown) (no (unknown) (unknown) marital status: (units (unknown) date) unknown) (unknown) (no (unknown) (unknown) month (units (unkno wn) date) unknown) (unknown) (no (unknown) (unknown) number of (units (unkn own) date) children: 1 unknown) (unknown) (no (unknown) (unknown) occupational (units (u nknown) date) status: employed unknown) (unknown) (no (unknown) (unknown) second hand (units (un known) date) exposure: No unknown) (growing up as a child - not currently) (unknown) (no (unknown) (unknown) special renee (units ( unknown) date) needs: No unknown) (unknown) (no (unknown) (unknown) substance use (units ( unknown) date) type: does not use unknown) Result panel 2481 (unknown) (no date) (unknown) (unknown) 2.1 mmol/l (unkn own) Result panel 2482 (unknown) (no (unknown) (unknown) (no value) (units (unk nown) date) unknown) (unknown) (no (unknown) (unknown) (past 8 hours): (units (unknown) date) unknown) (unknown) (no (unknown) (unknown) ADDENDUM (units (u nknown) date) unknown) (unknown) (no (unknown) (unknown) -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 (units (u nknown) date) unknown) (unknown) (no (unknown) (unknown) -UA with pyuria (units (unknown) date) unknown) (unknown) (no (unknown) (unknown) -continue PPI (units ( unknown) date) unknown) (unknown) (no (unknown) (unknown) -continue ciwa (units (unknown) date) protocol, with unknown) ativan, librium 50mg q6 (unknown) (no (unknown) (unknown) -continue prozac (units (unknown) date) unknown) (unknown) (no (unknown) (unknown) -continue to trend (units (unknown) date) unknown) (unknown) (no (unknown) (unknown) -each time she has (units (unknown) date) refused rehab unknown) (unknown) (no (unknown) (unknown) -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 (units (unknown) date) unknown) (unknown) (no (unknown) (unknown) -likely secondary (units (unknown) date) to inadequate PO unknown) intake due to alcoholism (unknown) (no (unknown) (unknown) -multiple (units (unkn own) date) admissions and unknown) hospital visits for alcohol withdrawal within the last (unknown) (no (unknown) (unknown) -now off precedex (units (unknown) date) unknown) (unknown) (no (unknown) (unknown) -ordered for high (units (unknown) date) dose thiamine for unknown) prevention/treatmen t of wernicke's (unknown) (no (unknown) (unknown) -per ED she is (units (unknown) date) requesting detox unknown) after drinking heavily after discharge (unknown) (no (unknown) (unknown) -per ED she was (units (unknown) date) hallucinating and unknown) agitated on arrival, received phenobarbital (unknown) (no (unknown) (unknown) -rocephin x3 days (units (unknown) date) unknown) (unknown) (no (unknown) (unknown) -she was just (units ( unknown) date) discharged 5 days unknown) ago, refusing rehab (unknown) (no (unknown) (unknown) -suspect secondary (units (unknown) date) to alcohol unknown) withdrawal and phenobarbital and treat as above (unknown) (no (unknown) (unknown) -trend daily (units (u nknown) date) unknown) (unknown) (no (unknown) (unknown) [id number] (units (unkn own) date) unknown) (unknown) (no (unknown) (unknown) 01:00 08/09/22 (units (unknown) date) unknown) (unknown) (no (unknown) (unknown) 01:06 08/09/22 (units (unknown) date) unknown) (unknown) (no (unknown) (unknown) 01:06 (units (unkno wn) date) unknown) (unknown) (no (unknown) (unknown) 01:29 08/09/22 (units (unknown) date) unknown) (unknown) (no (unknown) (unknown) 01:29 (units (unkno wn) date) unknown) (unknown) (no (unknown) (unknown) 02:00 08/09/22 (units (unknown) date) unknown) (unknown) (no (unknown) (unknown) 08/08/22 08/08/22 (units (unknown) date) 08/08/22 unknown) (unknown) (no (unknown) (unknown) 08/08/22 08/08/22 (units (unknown) date) 08/09/22 unknown) (unknown) (no (unknown) (unknown) 08/09/22 08/09/22 (units (unknown) date) 08/09/22 unknown) (unknown) (no (unknown) (unknown) 08/09/22 08/09/22 (units (unknown) date) unknown) (unknown) (no (unknown) (unknown) 08/09/22 04:16 (units (unknown) date) unknown) (unknown) (no (unknown) (unknown) 08/09/22 1035 (units ( unknown) date) unknown) (unknown) (no (unknown) (unknown) 08/09/22 1645 (units ( unknown) date) unknown) (unknown) (no (unknown) (unknown) 08/09/22 (units (unkno wn) date) unknown) (unknown) (no (unknown) (unknown) 03:00 08/09/22 (units (unknown) date) unknown) (unknown) (no (unknown) (unknown) 03:00 (units (unkno wn) date) unknown) (unknown) (no (unknown) (unknown) 03:02 08/09/22 (units (unknown) date) unknown) (unknown) (no (unknown) (unknown) 03:02 (units (unkno wn) date) unknown) (unknown) (no (unknown) (unknown) 04:00 08/09/22 (units (unknown) date) unknown) (unknown) (no (unknown) (unknown) 04:16 04:16 04:30 (units (unknown) date) unknown) (unknown) (no (unknown) (unknown) 04:20 08/09/22 (units (unknown) date) unknown) (unknown) (no (unknown) (unknown) 04:20 (units (unkno wn) date) unknown) (unknown) (no (unknown) (unknown) 04:30 04:30 (units (un known) date) unknown) (unknown) (no (unknown) (unknown) 05:00 08/09/22 (units (unknown) date) unknown) (unknown) (no (unknown) (unknown) 05:00 (units (unkno wn) date) unknown) (unknown) (no (unknown) (unknown) 05:02 08/09/22 (units (unknown) date) unknown) (unknown) (no (unknown) (unknown) 05:20 08/09/22 (units (unknown) date) unknown) (unknown) (no (unknown) (unknown) 05:20 (units (unkno wn) date) unknown) (unknown) (no (unknown) (unknown) 05:34 08/09/22 (units (unknown) date) unknown) (unknown) (no (unknown) (unknown) 05:34 (units (unkno wn) date) unknown) (unknown) (no (unknown) (unknown) 06:00 08/09/22 (units (unknown) date) unknown) (unknown) (no (unknown) (unknown) 06:24 08/09/22 (units (unknown) date) unknown) (unknown) (no (unknown) (unknown) 06:24 (units (unkno wn) date) unknown) (unknown) (no (unknown) (unknown) 07:00 08/09/22 (units (unknown) date) unknown) (unknown) (no (unknown) (unknown) 07:00 (units (unkno wn) date) unknown) (unknown) (no (unknown) (unknown) 1. Acute alcohol (units (unknown) date) withdrawal with unknown) DTs, improving (unknown) (no (unknown) (unknown) 2. Acute (units (unkno wn) date) encephalopathy, unknown) resolved (unknown) (no (unknown) (unknown) 21:00 21:00 21:00 (units (unknown) date) unknown) (unknown) (no (unknown) (unknown) 21:00 22:30 04:16 (units (unknown) date) unknown) (unknown) (no (unknown) (unknown) 3. Hypernatremia, (units (unknown) date) resolved unknown) (unknown) (no (unknown) (unknown) 4. Depression and (units (unknown) date) anxiety unknown) (unknown) (no (unknown) (unknown) 5. Anemia, chronic (units (unknown) date) unknown) (unknown) (no (unknown) (unknown) 6. GERD (units (unkno wn) date) unknown) (unknown) (no (unknown) (unknown) 7. UTI (units (unkno wn) date) unknown) (unknown) (no (unknown) (unknown) ABD: soft, (units (unk nown) date) nontender, unknown) nondistended, no organomegaly (unknown) (no (unknown) (unknown) ALT 51 H (units (unkno wn) date) unknown) (unknown) (no (unknown) (unknown) ALT 64 H (units (unkno wn) date) unknown) (unknown) (no (unknown) (unknown) ALT (units (unkno wn) date) unknown) (unknown) (no (unknown) (unknown) AST 288 H (units (unkn own) date) unknown) (unknown) (no (unknown) (unknown) AST 424 H (units (unkn own) date) unknown) (unknown) (no (unknown) (unknown) AST (units (unkno wn) date) unknown) (unknown) (no (unknown) (unknown) Addendum (units (unkno wn) date) Documented By: unknown) Jabari Sena D.O. (unknown) (no (unknown) (unknown) Addendum Signed (units (unknown) date) By: <Electronically unknown) signed by Jabari Sena, (unknown) (no (unknown) (unknown) Age/Sex: 31 / F (units (unknown) date) unknown) (unknown) (no (unknown) (unknown) Albumin 3.6 (units (un known) date) unknown) (unknown) (no (unknown) (unknown) Albumin 4.4 (units (un known) date) unknown) (unknown) (no (unknown) (unknown) Albumin (units (unkno wn) date) unknown) (unknown) (no (unknown) (unknown) Albumin/Globulin (units (unknown) date) Ratio 1.3 unknown) (unknown) (no (unknown) (unknown) Albumin/Globulin (units (unknown) date) Ratio 1.5 unknown) (unknown) (no (unknown) (unknown) Albumin/Globulin (units (unknown) date) Ratio unknown) (unknown) (no (unknown) (unknown) Alcohol withdrawal (units (unknown) date) delirium, acute, unknown) hyperactive (unknown) (no (unknown) (unknown) Alcoholism (units (unk nown) date) unknown) (unknown) (no (unknown) (unknown) Alkaline (units (unkno wn) date) Phosphatase 59 unknown) (unknown) (no (unknown) (unknown) Alkaline (units (unkno wn) date) Phosphatase 71 unknown) (unknown) (no (unknown) (unknown) Alkaline (units (unkno wn) date) Phosphatase unknown) (unknown) (no (unknown) (unknown) Anemia (-2018) (units (unknown) date) unknown) (unknown) (no (unknown) (unknown) Assessment + Plan (units (unknown) date) narrative: unknown) (unknown) (no (unknown) (unknown) Assessment + Plan (units (unknown) date) unknown) (unknown) (no (unknown) (unknown) BP low this (units (un known) date) mroning at unknown) 70's/40's. Received 2L boluses and improved to 90/50's. (unknown) (no (unknown) (unknown) BUN 7 (units (unkno wn) date) unknown) (unknown) (no (unknown) (unknown) BUN 8 (units (unkno wn) date) unknown) (unknown) (no (unknown) (unknown) BUN (units (unkno wn) date) unknown) (unknown) (no (unknown) (unknown) BUN/Creatinine (units (unknown) date) Ratio 8.9 unknown) (unknown) (no (unknown) (unknown) BUN/Creatinine (units (unknown) date) Ratio 9.2 unknown) (unknown) (no (unknown) (unknown) BUN/Creatinine (units (unknown) date) Ratio unknown) (unknown) (no (unknown) (unknown) Baso # (Auto) 100 (units (unknown) date) unknown) (unknown) (no (unknown) (unknown) Baso # (Auto) (units ( unknown) date) unknown) (unknown) (no (unknown) (unknown) Baso % (Auto) 1.9 (units (unknown) date) unknown) (unknown) (no (unknown) (unknown) Baso % (Auto) 2.5 (units (unknown) date) H unknown) (unknown) (no (unknown) (unknown) Baso % (Auto) (units ( unknown) date) unknown) (unknown) (no (unknown) (unknown) Blood Pressure (units (unknown) date) 73/40 L 75/39 L unknown) (unknown) (no (unknown) (unknown) Blood Pressure (units (unknown) date) 74/40 L unknown) (unknown) (no (unknown) (unknown) Blood Pressure (units (unknown) date) 77/42 L 80/45 L unknown) (unknown) (no (unknown) (unknown) Blood Pressure (units (unknown) date) 77/47 L unknown) (unknown) (no (unknown) (unknown) Blood Pressure (units (unknown) date) 78/43 L unknown) (unknown) (no (unknown) (unknown) Blood Pressure (units (unknown) date) 78/48 L unknown) (unknown) (no (unknown) (unknown) Blood Pressure (units (unknown) date) 80/44 L 79/43 L unknown) (unknown) (no (unknown) (unknown) Blood Pressure (units (unknown) date) 82/44 L 71/42 L unknown) (unknown) (no (unknown) (unknown) Blood Pressure (units (unknown) date) 86/53 L 83/50 L unknown) (unknown) (no (unknown) (unknown) CODE: Full (units (unk nown) date) unknown) (unknown) (no (unknown) (unknown) CV: regular rate (units (unknown) date) and rhythm, no unknown) murmurs (unknown) (no (unknown) (unknown) Calcium 7.7 L (units ( unknown) date) unknown) (unknown) (no (unknown) (unknown) Calcium 8.4 (units (un known) date) unknown) (unknown) (no (unknown) (unknown) Calcium (units (unkno wn) date) unknown) (unknown) (no (unknown) (unknown) Carbon Dioxide 30 (units (unknown) date) unknown) (unknown) (no (unknown) (unknown) Carbon Dioxide 33 (units (unknown) date) H unknown) (unknown) (no (unknown) (unknown) Carbon Dioxide (units (unknown) date) unknown) (unknown) (no (unknown) (unknown) Chloride 104 (units (u nknown) date) unknown) (unknown) (no (unknown) (unknown) Chloride 107 (units (u nknown) date) unknown) (unknown) (no (unknown) (unknown) Chloride (units (unkno wn) date) unknown) (unknown) (no (unknown) (unknown) Conjugated (units (unk nown) date) Bilirubin 0.0 unknown) (unknown) (no (unknown) (unknown) Conjugated (units (unk nown) date) Bilirubin unknown) (unknown) (no (unknown) (unknown) Creatinine 0.76 (units (unknown) date) unknown) (unknown) (no (unknown) (unknown) Creatinine 0.90 (units (unknown) date) unknown) (unknown) (no (unknown) (unknown) Creatinine (units (unk nown) date) unknown) (unknown) (no (unknown) (unknown) D.O.> 08/09/22 (units (unknown) date) 1645 unknown) (unknown) (no (unknown) (unknown) : 1990 (units (unknown) date) Acct:[id number] unknown) (unknown) (no (unknown) (unknown) Date of Service: (units (unknown) date) 08/08/22 unknown) (unknown) (no (unknown) (unknown) Deep Vein (units (unkn own) date) Thrombosis/Pulmonar unknown) y Embolism Present on Admission: No (unknown) (no (unknown) (unknown) Dispo: Likely (units ( unknown) date) intpatient 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 (unknown) (no (unknown) (unknown) EXT: warm and well (units (unknown) date) perfused with no unknown) edema (unknown) (no (unknown) (unknown) Eos # (Auto) 0 (units (unknown) date) unknown) (unknown) (no (unknown) (unknown) Eos # (Auto) (units (u nknown) date) unknown) (unknown) (no (unknown) (unknown) Eos % (Auto) 0.7 L (units (unknown) date) unknown) (unknown) (no (unknown) (unknown) Eos % (Auto) 0.8 L (units (unknown) date) unknown) (unknown) (no (unknown) (unknown) Eos % (Auto) (units (u nknown) date) unknown) (unknown) (no (unknown) (unknown) Estimated GFR > 60 (units (unknown) date) unknown) (unknown) (no (unknown) (unknown) Estimated GFR (units ( unknown) date) unknown) (unknown) (no (unknown) (unknown) Ethyl Alcohol 393 (units (unknown) date) H unknown) (unknown) (no (unknown) (unknown) Ethyl Alcohol (units ( unknown) date) unknown) (unknown) (no (unknown) (unknown) Exam Narrative: (units (unknown) date) unknown) (unknown) (no (unknown) (unknown) Exam (units (unkno wn) date) unknown) (unknown) (no (unknown) (unknown) Family History (units (unknown) date) (Reviewed 08/09/22 unknown) @ 05:03 by Roberto Vasquez MD) (unknown) (no (unknown) (unknown) Family/Other (units (u nknown) date) Alcoholism unknown) (unknown) (no (unknown) (unknown) Family/Other (units (u nknown) date) Diabetes mellitus unknown) (unknown) (no (unknown) (unknown) Father Alcoholism (units (unknown) date) unknown) (unknown) (no (unknown) (unknown) GEN: no distress (units (unknown) date) unknown) (unknown) (no (unknown) (unknown) Globulin 2.4 (units (u nknown) date) unknown) (unknown) (no (unknown) (unknown) Globulin 3.3 (units (u nknown) date) unknown) (unknown) (no (unknown) (unknown) Globulin (units (unkno wn) date) unknown) (unknown) (no (unknown) (unknown) Glucose 84 (units (unk nown) date) unknown) (unknown) (no (unknown) (unknown) Glucose 92 (units (unk nown) date) unknown) (unknown) (no (unknown) (unknown) Glucose (units (unkno wn) date) unknown) (unknown) (no [...] extraction () unknown) (unknown) (no (unknown) (unknown) HEENT: moist (units (u nknown) date) mucous membranes, unknown) PERRL (unknown) (no (unknown) (unknown) Hct 31.4 L (units (unk nown) date) unknown) (unknown) (no (unknown) (unknown) Hct 37.0 (units (unkno wn) date) unknown) (unknown) (no (unknown) (unknown) Hct (units (unkno wn) date) unknown) (unknown) (no (unknown) (unknown) Hgb 10.1 L (units (unk nown) date) unknown) (unknown) (no (unknown) (unknown) Hgb 11.9 L (units (unk nown) date) unknown) (unknown) (no (unknown) (unknown) Hgb (units (unkno wn) date) unknown) (unknown) (no (unknown) (unknown) Insomnia (units (unkno wn) date) unknown) (unknown) (no (unknown) (unknown) Interval history: (units (unknown) date) unknown) (unknown) (no (unknown) (unknown) [facility] (units (unknown) date) [address] unknown) [place] [address] (unknown) (no (unknown) (unknown) Laboratory Results (units (unknown) date) - last 24 hr unknown) (unknown) (no (unknown) (unknown) Labs (units (unkno wn) date) unknown) (unknown) (no (unknown) (unknown) Labs: (units (unkno wn) date) unknown) (unknown) (no (unknown) (unknown) Lipase 408 H (units (u nknown) date) unknown) (unknown) (no (unknown) (unknown) Lipase (units (unkno wn) date) unknown) (unknown) (no (unknown) (unknown) Lymph # (Auto) (units (unknown) date) 2600 unknown) (unknown) (no (unknown) (unknown) Lymph # (Auto) (units (unknown) date) 2800 unknown) (unknown) (no (unknown) (unknown) Lymph # (Auto) (units (unknown) date) unknown) (unknown) (no (unknown) (unknown) Lymph % (Auto) (units (unknown) date) 51.5 H unknown) (unknown) (no (unknown) (unknown) Lymph % (Auto) (units (unknown) date) 54.2 H unknown) (unknown) (no (unknown) (unknown) Lymph % (Auto) (units (unknown) date) unknown) (unknown) (no (unknown) (unknown) MCH 25.4 L (units (unk nown) date) unknown) (unknown) (no (unknown) (unknown) MCH 25.7 L (units (unk nown) date) unknown) (unknown) (no (unknown) (unknown) MCH (units (unkno wn) date) unknown) (unknown) (no (unknown) (unknown) MCHC 32.1 (units (unkn own) date) unknown) (unknown) (no (unknown) (unknown) MCHC 32.2 (units (unkn own) date) unknown) (unknown) (no (unknown) (unknown) MCHC (units (unkno wn) date) unknown) (unknown) (no (unknown) (unknown) MCV 79.0 L (units (unk nown) date) unknown) (unknown) (no (unknown) (unknown) MCV 80.2 (units (unkno wn) date) unknown) (unknown) (no (unknown) (unknown) MCV (units (unkno wn) date) unknown) (unknown) (no (unknown) (unknown) Magnesium 2.2 (units ( unknown) date) unknown) (unknown) (no (unknown) (unknown) Magnesium (units (unkn own) date) unknown) (unknown) (no (unknown) (unknown) Medical History (units (unknown) date) (Reviewed 08/09/22 unknown) @ 05:03 by Roberto Vasquez MD) (unknown) (no (unknown) (unknown) Menometrorrhagia (units (unknown) date) unknown) (unknown) (no (unknown) (unknown) Yates # (Auto) 300 (units (unknown) date) unknown) (unknown) (no (unknown) (unknown) Yates # (Auto) 400 (units (unknown) date) unknown) (unknown) (no (unknown) (unknown) Yates # (Auto) (units ( unknown) date) unknown) (unknown) (no (unknown) (unknown) Yates % (Auto) 6.5 (units (unknown) date) unknown) (unknown) (no (unknown) (unknown) Yates % (Auto) 8.6 (units (unknown) date) unknown) (unknown) (no (unknown) (unknown) Yates % (Auto) (units ( unknown) date) unknown) (unknown) (no (unknown) (unknown) Mother Diabetes (units (unknown) date) mellitus unknown) (unknown) (no (unknown) (unknown) NECK: trachea (units ( unknown) date) midline, no JVD unknown) (unknown) (no (unknown) (unknown) NEURO: awake and (units (unknown) date) alert, no focal unknown) deficits (unknown) (no (unknown) (unknown) Narrative (units (unkn own) date) unknown) (unknown) (no (unknown) (unknown) Neut # (Auto) 1900 (units (unknown) date) unknown) (unknown) (no (unknown) (unknown) Neut # (Auto) (units ( unknown) date) unknown) (unknown) (no (unknown) (unknown) Neut % (Auto) 36.6 (units (unknown) date) L unknown) (unknown) (no (unknown) (unknown) Neut % (Auto) 36.7 (units (unknown) date) L unknown) (unknown) (no (unknown) (unknown) Neut % (Auto) (units ( unknown) date) unknown) (unknown) (no (unknown) (unknown) Obesity (units (unkno wn) date) unknown) (unknown) (no (unknown) (unknown) Objective (units (unkn own) date) unknown) (unknown) (no (unknown) (unknown) Overweight (units (unk nown) date) unknown) (unknown) (no (unknown) (unknown) Oxygen Delivery (units (unknown) date) Method Room Air unknown) (unknown) (no (unknown) (unknown) PFSH (units (unkno wn) date) unknown) (unknown) (no (unknown) (unknown) PULM: clear (units (un known) date) bilaterally, no unknown) wheezes, rhonchi, rales (unknown) (no (unknown) (unknown) Patient: (units (unkno wn) date) Sarah Connors R unknown) MR#: M (unknown) (no (unknown) (unknown) Plt Count 332 (units ( unknown) date) unknown) (unknown) (no (unknown) (unknown) Plt Count 396 (units ( unknown) date) unknown) (unknown) (no (unknown) (unknown) Plt Count (units (unkn own) date) unknown) (unknown) (no (unknown) (unknown) Potassium 3.5 (units ( unknown) date) unknown) (unknown) (no (unknown) (unknown) Potassium 3.6 (units ( unknown) date) unknown) (unknown) (no (unknown) (unknown) Potassium (units (unkn own) date) unknown) (unknown) (no (unknown) (unknown) Procal negative. (units (unknown) date) WBC negative. unknown) Patient now off precedex and awake and alert. She (unknown) (no (unknown) (unknown) Progress Note (units ( unknown) date) unknown) (unknown) (no (unknown) (unknown) Provider: (units (unkn own) date) Jabari Sena unknown) D.O. (unknown) (no (unknown) (unknown) Proxy: Rober (units (unknown) date) Dory, spouse unknown) (unknown) (no (unknown) (unknown) Pulse Oximetry 95 (units (unknown) date) 95 unknown) (unknown) (no (unknown) (unknown) Pulse Oximetry 95 (units (unknown) date) 96 unknown) (unknown) (no (unknown) (unknown) Pulse Oximetry 95 (units (unknown) date) unknown) (unknown) (no (unknown) (unknown) Pulse Oximetry 96 (units (unknown) date) unknown) (unknown) (no (unknown) (unknown) Pulse Oximetry 97 (units (unknown) date) 96 unknown) (unknown) (no (unknown) (unknown) Pulse Oximetry 97 (units (unknown) date) unknown) (unknown) (no (unknown) (unknown) Pulse Oximetry 99 (units (unknown) date) 99 unknown) (unknown) (no (unknown) (unknown) Pulse Rate 69 72 (units (unknown) date) unknown) (unknown) (no (unknown) (unknown) Pulse Rate 71 (units ( unknown) date) unknown) (unknown) (no (unknown) (unknown) Pulse Rate 72 (units ( unknown) date) unknown) (unknown) (no (unknown) (unknown) Pulse Rate 75 69 (units (unknown) date) unknown) (unknown) (no (unknown) (unknown) Pulse Rate 75 75 (units (unknown) date) unknown) (unknown) (no (unknown) (unknown) Pulse Rate 75 78 (units (unknown) date) unknown) (unknown) (no (unknown) (unknown) Pulse Rate 75 (units ( unknown) date) unknown) (unknown) (no (unknown) (unknown) Pulse Rate 76 71 (units (unknown) date) unknown) (unknown) (no (unknown) (unknown) Pulse Rate 79 76 (units (unknown) date) unknown) (unknown) (no (unknown) (unknown) Quality (units (unkno wn) date) unknown) (unknown) (no (unknown) (unknown) RBC 3.98 L (units (unk nown) date) unknown) (unknown) (no (unknown) (unknown) RBC 4.61 (units (unkno wn) date) unknown) (unknown) (no (unknown) (unknown) RBC (units (unkno wn) date) unknown) (unknown) (no (unknown) (unknown) RDW 19.5 H (units (unk nown) date) unknown) (unknown) (no (unknown) (unknown) RDW 19.7 H (units (unk nown) date) unknown) (unknown) (no (unknown) (unknown) RDW (units (unkno wn) date) unknown) (unknown) (no (unknown) (unknown) Respiratory Rate (units (unknown) date) 14 16 unknown) (unknown) (no (unknown) (unknown) Respiratory Rate (units (unknown) date) 16 16 unknown) (unknown) (no (unknown) (unknown) Respiratory Rate (units (unknown) date) 18 19 unknown) (unknown) (no (unknown) (unknown) Respiratory Rate (units (unknown) date) 18 unknown) (unknown) (no (unknown) (unknown) Respiratory Rate (units (unknown) date) 19 unknown) (unknown) (no (unknown) (unknown) Respiratory Rate (units (unknown) date) 21 20 unknown) (unknown) (no (unknown) (unknown) Respiratory Rate (units (unknown) date) 27 H unknown) (unknown) (no (unknown) (unknown) Respiratory Rate (units (unknown) date) 34 H 23 unknown) (unknown) (no (unknown) (unknown) Respiratory Rate (units (unknown) date) 37 H 16 unknown) (unknown) (no (unknown) (unknown) Respiratory Rate (units (unknown) date) 37 H unknown) (unknown) (no (unknown) (unknown) S/P myringotomy (units (unknown) date) with insertion of unknown) tube (unknown) (no (unknown) (unknown) SARS-CoV-2 (PCR) (units (unknown) date) Negative unknown) (unknown) (no (unknown) (unknown) SARS-CoV-2 (PCR) (units (unknown) date) unknown) (unknown) (no (unknown) (unknown) (spontaneous (units (unknown) date) vaginal delivery) unknown) (-09/05/18) (unknown) (no (unknown) (unknown) Signed (units (unkno wn) date) By:<Electronically unknown) signed by Jabari Sena D.O.> (unknown) (no (unknown) (unknown) Smoker (units (unkno wn) date) unknown) (unknown) (no (unknown) (unknown) Smoking Status: (units (unknown) date) Former smoker unknown) (unknown) (no (unknown) (unknown) Social History (units (unknown) date) (Reviewed 08/09/22 unknown) @ 05:03 by Roberto Vasquez MD) (unknown) (no (unknown) (unknown) Sodium 145 (units (unk nown) date) unknown) (unknown) (no (unknown) (unknown) Sodium 148 H D (units (unknown) date) unknown) (unknown) (no (unknown) (unknown) Sodium (units (unkno wn) date) unknown) (unknown) (no (unknown) (unknown) Subjective (units (unk nown) date) unknown) (unknown) (no (unknown) (unknown) Surgical History (units (unknown) date) (Reviewed 08/09/22 unknown) @ 05:03 by Roberto Vasquez MD) (unknown) (no (unknown) (unknown) Temperature 98.6 F (units (unknown) date) unknown) (unknown) (no (unknown) (unknown) Temperature (units (un known) date) unknown) (unknown) (no (unknown) (unknown) Total Bilirubin (units (unknown) date) 0.3 unknown) (unknown) (no (unknown) (unknown) Total Bilirubin (units (unknown) date) 0.4 unknown) (unknown) (no (unknown) (unknown) Total Bilirubin (units (unknown) date) unknown) (unknown) (no (unknown) (unknown) Total Protein 6.0 (units (unknown) date) L unknown) (unknown) (no (unknown) (unknown) Total Protein 7.7 (units (unknown) date) unknown) (unknown) (no (unknown) (unknown) Total Protein (units ( unknown) date) unknown) (unknown) (no (unknown) (unknown) Toxic metabolic (units (unknown) date) encephalopathy, unknown) secondary to etoh withdrawal and phenobarbital (unknown) (no (unknown) (unknown) U Benzodiazepines (units (unknown) date) Scrn Positive H unknown) (unknown) (no (unknown) (unknown) U Benzodiazepines (units (unknown) date) Scrn unknown) (unknown) (no (unknown) (unknown) U Marijuana (THC) (units (unknown) date) Screen Negative unknown) (unknown) (no (unknown) (unknown) U Marijuana (THC) (units (unknown) date) Screen unknown) (unknown) (no (unknown) (unknown) U Methamphetamines (units (unknown) date) Scrn Negative unknown) (unknown) (no (unknown) (unknown) U Methamphetamines (units (unknown) date) Scrn unknown) (unknown) (no (unknown) (unknown) U Opiates 300ng/mL (units (unknown) date) cut Negative unknown) (unknown) (no (unknown) (unknown) U Opiates 300ng/mL (units (unknown) date) cut unknown) (unknown) (no (unknown) (unknown) U Tricyclic (units (un known) date) Antidepress unknown) Positive H (unknown) (no (unknown) (unknown) U Tricyclic (units (un known) date) Antidepress unknown) (unknown) (no (unknown) (unknown) Unconjugated (units (u nknown) date) Bilirubin 0.0 unknown) (unknown) (no (unknown) (unknown) Unconjugated (units (u nknown) date) Bilirubin unknown) (unknown) (no (unknown) (unknown) Ur Amphetamines (units (unknown) date) Screen Negative unknown) (unknown) (no (unknown) (unknown) Ur Amphetamines (units (unknown) date) Screen unknown) (unknown) (no (unknown) (unknown) Ur Barbiturates (units (unknown) date) Screen Positive H unknown) (unknown) (no (unknown) (unknown) Ur Barbiturates (units (unknown) date) Screen unknown) (unknown) (no (unknown) (unknown) Ur Culture (units (unk nown) date) Indicated? Specimen unknown) cultured (unknown) (no (unknown) (unknown) Ur Culture (units (unk nown) date) Indicated? unknown) (unknown) (no (unknown) (unknown) Ur Leukocyte (units (u nknown) date) Esterase 1+ H unknown) (unknown) (no (unknown) (unknown) Ur Leukocyte (units (u nknown) date) Esterase unknown) (unknown) (no (unknown) (unknown) Ur MDMA Scrn (units (u nknown) date) (Ecstasy) Negative unknown) (unknown) (no (unknown) (unknown) Ur MDMA Scrn (units (u nknown) date) (Ecstasy) unknown) (unknown) (no (unknown) (unknown) Ur Oxycodone (units (u nknown) date) Screen Negative unknown) (unknown) (no (unknown) (unknown) Ur Oxycodone (units (u nknown) date) Screen unknown) (unknown) (no (unknown) (unknown) Ur Phencyclidine (units (unknown) date) Scrn Negative unknown) (unknown) (no (unknown) (unknown) Ur Phencyclidine (units (unknown) date) Scrn unknown) (unknown) (no (unknown) (unknown) Ur Specific (units (un known) date) [place] 1.015 unknown) (unknown) (no (unknown) (unknown) Ur Specific (units (un known) date) [place] unknown) (unknown) (no (unknown) (unknown) Urine Appearance (units (unknown) date) Clear unknown) (unknown) (no (unknown) (unknown) Urine Appearance (units (unknown) date) unknown) (unknown) (no (unknown) (unknown) Urine Bacteria (units (unknown) date) Many (>30) H unknown) (unknown) (no (unknown) (unknown) Urine Bacteria (units (unknown) date) unknown) (unknown) (no (unknown) (unknown) Urine Bilirubin (units (unknown) date) Negative unknown) (unknown) (no (unknown) (unknown) Urine Bilirubin (units (unknown) date) unknown) (unknown) (no (unknown) (unknown) Urine Cocaine (units ( unknown) date) Screen Negative unknown) (unknown) (no (unknown) (unknown) Urine Cocaine (units ( unknown) date) Screen unknown) (unknown) (no (unknown) (unknown) Urine Color Yellow (units (unknown) date) unknown) (unknown) (no (unknown) (unknown) Urine Color (units (un known) date) unknown) (unknown) (no (unknown) (unknown) Urine Glucose (UA) (units (unknown) date) Negative unknown) (unknown) (no (unknown) (unknown) Urine Glucose (UA) (units (unknown) date) unknown) (unknown) (no (unknown) (unknown) Urine Ketones (units ( unknown) date) Negative unknown) (unknown) (no (unknown) (unknown) Urine Ketones (units ( unknown) date) unknown) (unknown) (no (unknown) (unknown) Urine Methadone (units (unknown) date) Screen Negative unknown) (unknown) (no (unknown) (unknown) Urine Methadone (units (unknown) date) Screen unknown) (unknown) (no (unknown) (unknown) Urine Nitrate (units ( unknown) date) Positive H unknown) (unknown) (no (unknown) (unknown) Urine Nitrate (units ( unknown) date) unknown) (unknown) (no (unknown) (unknown) Urine Occult Blood (units (unknown) date) Negative unknown) (unknown) (no (unknown) (unknown) Urine Occult Blood (units (unknown) date) unknown) (unknown) (no (unknown) (unknown) Urine (units (unknown) date) Test Negative unknown) (unknown) (no (unknown) (unknown) Urine (units (unknown) date) Test unknown) (unknown) (no (unknown) (unknown) Urine Protein (units ( unknown) date) Negative unknown) (unknown) (no (unknown) (unknown) Urine Protein (units ( unknown) date) unknown) (unknown) (no (unknown) (unknown) Urine RBC None (units (unknown) date) seen unknown) (unknown) (no (unknown) (unknown) Urine RBC (units (unkn own) date) unknown) (unknown) (no (unknown) (unknown) Urine Urobilinogen (units (unknown) date) 0.2 unknown) (unknown) (no (unknown) (unknown) Urine Urobilinogen (units (unknown) date) unknown) (unknown) (no (unknown) (unknown) Urine WBC (units (unkn own) date) 10-30/hpf H unknown) (unknown) (no (unknown) (unknown) Urine WBC (units (unkn own) date) unknown) (unknown) (no (unknown) (unknown) Urine pH 6.0 (units (u nknown) date) unknown) (unknown) (no (unknown) (unknown) Urine pH (units (unkno wn) date) unknown) (unknown) (no (unknown) (unknown) VTE (units (unkno wn) date) unknown) (unknown) (no (unknown) (unknown) Vital Signs (units (un known) date) unknown) (unknown) (no (unknown) (unknown) WBC 5.1 (units (unkno wn) date) unknown) (unknown) (no (unknown) (unknown) WBC 5.2 (units (unkno wn) date) unknown) (unknown) (no (unknown) (unknown) WBC (units (unkno wn) date) unknown) (unknown) (no (unknown) (unknown) [Embedded Image (units (unknown) date) Not Available] unknown) (unknown) (no (unknown) (unknown) alcohol intake: (units (unknown) date) current unknown) (unknown) (no (unknown) (unknown) current (units (unkno wn) date) occupational unknown) exposures/hazards: Yes (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 with Pandemic ) (unknown) (no (unknown) (unknown) education level: (units (unknown) date) college unknown) (unknown) (no (unknown) (unknown) renee/zoroastrianism: (units (unknown) date) Buddhist unknown) (unknown) (no (unknown) (unknown) has no complaints (units (unknown) date) and is willing to unknown) go to detox. (unknown) (no (unknown) (unknown) household members: (units (unknown) date) significant other unknown) (unknown) (no (unknown) (unknown) marital status: (units (unknown) date) unknown) (unknown) (no (unknown) (unknown) month (units (unkno wn) date) unknown) (unknown) (no (unknown) (unknown) number of (units (unkn own) date) children: 1 unknown) (unknown) (no (unknown) (unknown) occupational (units (u nknown) date) status: employed unknown) (unknown) (no (unknown) (unknown) second hand (units (un known) date) exposure: No unknown) (growing up as a child - not currently) (unknown) (no (unknown) (unknown) special renee (units ( unknown) date) needs: No unknown) (unknown) (no (unknown) (unknown) substance use (units ( unknown) date) type: does not use unknown) Result panel [id number] (unknown) (no (unknown) (unknown) (no value) (units (unk nown) date) unknown) (unknown) (no (unknown) (unknown) (past 8 hours): (units (unknown) date) unknown) (unknown) (no (unknown) (unknown) -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 (units (u nknown) date) unknown) (unknown) (no (unknown) (unknown) -UA with pyuria (units (unknown) date) unknown) (unknown) (no (unknown) (unknown) -continue PPI (units ( unknown) date) unknown) (unknown) (no (unknown) (unknown) -continue ciwa (units (unknown) date) protocol, with unknown) ativan, librium 50mg q6 (unknown) (no (unknown) (unknown) -continue prozac (units (unknown) date) unknown) (unknown) (no (unknown) (unknown) -continue to trend (units (unknown) date) unknown) (unknown) (no (unknown) (unknown) -each time she has (units (unknown) date) refused rehab unknown) (unknown) (no (unknown) (unknown) -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 (units (unknown) date) unknown) (unknown) (no (unknown) (unknown) -likely secondary (units (unknown) date) to inadequate PO unknown) intake due to alcoholism (unknown) (no (unknown) (unknown) -multiple (units (unkn own) date) admissions and unknown) hospital visits for alcohol withdrawal within the last (unknown) (no (unknown) (unknown) -now off precedex (units (unknown) date) unknown) (unknown) (no (unknown) (unknown) -ordered for high (units (unknown) date) dose thiamine for unknown) prevention/treatmen t of wernicke's (unknown) (no (unknown) (unknown) -per ED she is (units (unknown) date) requesting detox unknown) after drinking heavily after discharge (unknown) (no (unknown) (unknown) -per ED she was (units (unknown) date) hallucinating and unknown) agitated on arrival, received phenobarbital (unknown) (no (unknown) (unknown) -rocephin x3 days (units (unknown) date) unknown) (unknown) (no (unknown) (unknown) -she was just (units ( unknown) date) discharged 5 days unknown) ago, refusing rehab (unknown) (no (unknown) (unknown) -suspect secondary (units (unknown) date) to alcohol unknown) withdrawal and phenobarbital and treat as above (unknown) (no (unknown) (unknown) -trend daily (units (u nknown) date) unknown) (unknown) (no (unknown) (unknown) [id number] (units (unkn own) date) unknown) (unknown) (no (unknown) (unknown) 08/08/22 08/08/22 (units (unknown) date) 08/08/22 unknown) (unknown) (no (unknown) (unknown) 08/08/22 08/08/22 (units (unknown) date) 08/09/22 unknown) (unknown) (no (unknown) (unknown) 08/08/22 22:04 (units (unknown) date) unknown) (unknown) (no (unknown) (unknown) 08/08/22 22:48 (units (unknown) date) unknown) (unknown) (no (unknown) (unknown) 08/09/22 08/09/22 (units (unknown) date) 08/09/22 unknown) (unknown) (no (unknown) (unknown) 08/09/22 08/09/22 (units (unknown) date) unknown) (unknown) (no (unknown) (unknown) 08/09/22 04:16 (units (unknown) date) unknown) (unknown) (no (unknown) (unknown) 08/09/22 07:23 (units (unknown) date) unknown) (unknown) (no (unknown) (unknown) 08/09/22 (units (unkno wn) date) unknown) (unknown) (no (unknown) (unknown) 04:16 04:16 04:30 (units (unknown) date) unknown) (unknown) (no (unknown) (unknown) 04:30 04:30 09:00 (units (unknown) date) unknown) (unknown) (no (unknown) (unknown) 09:00 11:45 (units (un known) date) unknown) (unknown) (no (unknown) (unknown) 1. Acute alcohol (units (unknown) date) withdrawal with unknown) DTs, improving (unknown) (no (unknown) (unknown) 10:00 08/09/22 (units (unknown) date) unknown) (unknown) (no (unknown) (unknown) 11:00 08/09/22 (units (unknown) date) unknown) (unknown) (no (unknown) (unknown) 11:00 (units (unkno wn) date) unknown) (unknown) (no (unknown) (unknown) 12:00 08/09/22 (units (unknown) date) unknown) (unknown) (no (unknown) (unknown) 12:00 (units (unkno wn) date) unknown) (unknown) (no (unknown) (unknown) 12:02 08/09/22 (units (unknown) date) unknown) (unknown) (no (unknown) (unknown) 13:00 08/09/22 (units (unknown) date) unknown) (unknown) (no (unknown) (unknown) 13:00 (units (unkno wn) date) unknown) (unknown) (no (unknown) (unknown) 13:29 08/09/22 (units (unknown) date) unknown) (unknown) (no (unknown) (unknown) 14:00 08/09/22 (units (unknown) date) unknown) (unknown) (no (unknown) (unknown) 14:00 (units (unkno wn) date) unknown) (unknown) (no (unknown) (unknown) 14:07 08/09/22 (units (unknown) date) unknown) (unknown) (no (unknown) (unknown) 15:00 08/09/22 (units (unknown) date) unknown) (unknown) (no (unknown) (unknown) 15:00 (units (unkno wn) date) unknown) (unknown) (no (unknown) (unknown) 16:00 (units (unkno wn) date) unknown) (unknown) (no (unknown) (unknown) 16:15 08/09/22 (units (unknown) date) unknown) (unknown) (no (unknown) (unknown) 2. Acute (units (unkno wn) date) encephalopathy, unknown) resolved (unknown) (no (unknown) (unknown) 21:00 21:00 21:00 (units (unknown) date) unknown) (unknown) (no (unknown) (unknown) 21:00 22:30 04:16 (units (unknown) date) unknown) (unknown) (no (unknown) (unknown) 3. Hypernatremia, (units (unknown) date) resolved unknown) (unknown) (no (unknown) (unknown) 300 mg PO DAILY (units (unknown) date) unknown) (unknown) (no (unknown) (unknown) 4. Depression and (units (unknown) date) anxiety unknown) (unknown) (no (unknown) (unknown) 5. Anemia, chronic (units (unknown) date) unknown) (unknown) (no (unknown) (unknown) 50 mg PO PRN PRN (units (unknown) date) (Reason: Anxiety) unknown) (unknown) (no (unknown) (unknown) 6. GERD (units (unkno wn) date) unknown) (unknown) (no (unknown) (unknown) 7. UTI (units (unkno wn) date) unknown) (unknown) (no (unknown) (unknown) ABD: soft, (units (unk nown) date) nontender, unknown) nondistended, no organomegaly (unknown) (no (unknown) (unknown) ALT 51 H (units (unkno wn) date) unknown) (unknown) (no (unknown) (unknown) ALT 64 H (units (unkno wn) date) unknown) (unknown) (no (unknown) (unknown) ALT (units (unkno wn) date) unknown) (unknown) (no (unknown) (unknown) AST 288 H (units (unkn own) date) unknown) (unknown) (no (unknown) (unknown) AST 424 H (units (unkn own) date) unknown) (unknown) (no (unknown) (unknown) AST (units (unkno wn) date) unknown) (unknown) (no (unknown) (unknown) Age/Sex: 31 / F (units (unknown) date) unknown) (unknown) (no (unknown) (unknown) Albumin 3.6 (units (un known) date) unknown) (unknown) (no (unknown) (unknown) Albumin 4.4 (units (un known) date) unknown) (unknown) (no (unknown) (unknown) Albumin (units (unkno wn) date) unknown) (unknown) (no (unknown) (unknown) Albumin/Globulin (units (unknown) date) Ratio 1.3 unknown) (unknown) (no (unknown) (unknown) Albumin/Globulin (units (unknown) date) Ratio 1.5 unknown) (unknown) (no (unknown) (unknown) Albumin/Globulin (units (unknown) date) Ratio unknown) (unknown) (no (unknown) (unknown) Alcohol withdrawal (units (unknown) date) delirium, acute, unknown) hyperactive (unknown) (no (unknown) (unknown) Alcoholism (units (unk nown) date) unknown) (unknown) (no (unknown) (unknown) Alkaline (units (unkno wn) date) Phosphatase 59 unknown) (unknown) (no (unknown) (unknown) Alkaline (units (unkno wn) date) Phosphatase 71 unknown) (unknown) (no (unknown) (unknown) Alkaline (units (unkno wn) date) Phosphatase unknown) (unknown) (no (unknown) (unknown) Anemia (-2018) (units (unknown) date) unknown) (unknown) (no (unknown) (unknown) BUN 7 (units (unkno wn) date) unknown) (unknown) (no (unknown) (unknown) BUN 8 (units (unkno wn) date) unknown) (unknown) (no (unknown) (unknown) BUN (units (unkno wn) date) unknown) (unknown) (no (unknown) (unknown) BUN/Creatinine (units (unknown) date) Ratio 8.9 unknown) (unknown) (no (unknown) (unknown) BUN/Creatinine (units (unknown) date) Ratio 9.2 unknown) (unknown) (no (unknown) (unknown) BUN/Creatinine (units (unknown) date) Ratio unknown) (unknown) (no (unknown) (unknown) Baso # (Auto) 100 (units (unknown) date) unknown) (unknown) (no (unknown) (unknown) Baso # (Auto) (units ( unknown) date) unknown) (unknown) (no (unknown) (unknown) Baso % (Auto) 1.9 (units (unknown) date) unknown) (unknown) (no (unknown) (unknown) Baso % (Auto) 2.5 (units (unknown) date) H unknown) (unknown) (no (unknown) (unknown) Baso % (Auto) (units ( unknown) date) unknown) (unknown) (no (unknown) (unknown) Blood Pressure (units (unknown) date) 100/56 L unknown) (unknown) (no (unknown) (unknown) Blood Pressure (units (unknown) date) 102/64 88/59 L unknown) (unknown) (no (unknown) (unknown) Blood Pressure (units (unknown) date) 102/64 unknown) (unknown) (no (unknown) (unknown) Blood Pressure (units (unknown) date) 93/59 L 93/59 L unknown) (unknown) (no (unknown) (unknown) Blood Pressure (units (unknown) date) 97/64 119/65 unknown) (unknown) (no (unknown) (unknown) Blood Pressure (units (unknown) date) 98/61 101/54 L unknown) (unknown) (no (unknown) (unknown) Blood Pressure (units (unknown) date) unknown) (unknown) (no (unknown) (unknown) CV: regular rate (units (unknown) date) and rhythm, no unknown) murmurs (unknown) (no (unknown) (unknown) Calcium 7.7 L (units ( unknown) date) unknown) (unknown) (no (unknown) (unknown) Calcium 8.4 (units (un known) date) unknown) (unknown) (no (unknown) (unknown) Calcium (units (unkno wn) date) unknown) (unknown) (no (unknown) (unknown) Carbon Dioxide 30 (units (unknown) date) unknown) (unknown) (no (unknown) (unknown) Carbon Dioxide 33 (units (unknown) date) H unknown) (unknown) (no (unknown) (unknown) Carbon Dioxide (units (unknown) date) unknown) (unknown) (no (unknown) (unknown) Chief complaint: (units (unknown) date) needs to detox unknown) (unknown) (no (unknown) (unknown) Chloride 104 (units (u nknown) date) unknown) (unknown) (no (unknown) (unknown) Chloride 107 (units (u nknown) date) unknown) (unknown) (no (unknown) (unknown) Chloride (units (unkno wn) date) unknown) (unknown) (no (unknown) (unknown) Comment: needs (units (unknown) date) inpatient treatment unknown) for EtOH (unknown) (no (unknown) (unknown) Comment: (units (unkno wn) date) unknown) (unknown) (no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 special renee (units ( unknown) date) needs: No unknown) (unknown) (no (unknown) (unknown) substance use (units ( unknown) date) type: does not use unknown) (unknown) (no (unknown) (unknown) this month for (units (unknown) date) intoxication. She unknown) has previously been admitted and developed (unknown) (no (unknown) (unknown) this with me as (units (unknown) date) again she is unknown) sleeping and sedated. UA and urine drug screen (unknown) (no (unknown) (unknown) to get a history. (units (unknown) date) She has many unknown) admissions for alcohol rehab and had one recently (unknown) (no (unknown) (unknown) to the hospital (units (unknown) date) intoxicated. unknown) Patient is sedated when I see her and I am unable (unknown) (no (unknown) (unknown) was given (units (unkn own) date) phenobarbital. When unknown) I see her she is sleeping soundly. 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 (units (u nknown) date) unknown) (unknown) (no (unknown) (unknown) -UA with pyuria (units (unknown) date) unknown) (unknown) (no (unknown) (unknown) -continue PPI (units ( unknown) date) unknown) (unknown) (no (unknown) (unknown) -continue ciwa (units (unknown) date) protocol, with unknown) ativan, librium 50mg q6 (unknown) (no (unknown) (unknown) -continue prozac (units (unknown) date) unknown) (unknown) (no (unknown) (unknown) -continue to trend (units (unknown) date) unknown) (unknown) (no (unknown) (unknown) -each time she has (units (unknown) date) refused rehab unknown) (unknown) (no (unknown) (unknown) -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 (units (unknown) date) unknown) (unknown) (no (unknown) (unknown) -likely secondary (units (unknown) date) to inadequate PO unknown) intake due to alcoholism (unknown) (no (unknown) (unknown) -multiple (units (unkn own) date) admissions and unknown) hospital visits for alcohol withdrawal within the last (unknown) (no (unknown) (unknown) -now off precedex (units (unknown) date) unknown) (unknown) (no (unknown) (unknown) -ordered for high (units (unknown) date) dose thiamine for unknown) prevention/treatmen t of wernicke's (unknown) (no (unknown) (unknown) -per ED she is (units (unknown) date) requesting detox unknown) after drinking heavily after discharge (unknown) (no (unknown) (unknown) -per ED she was (units (unknown) date) hallucinating and unknown) agitated on arrival, received phenobarbital (unknown) (no (unknown) (unknown) -rocephin x3 days (units (unknown) date) unknown) (unknown) (no (unknown) (unknown) -she was just (units ( unknown) date) discharged 5 days unknown) ago, refusing rehab (unknown) (no (unknown) (unknown) -suspect secondary (units (unknown) date) to alcohol unknown) withdrawal and phenobarbital and treat as above (unknown) (no (unknown) (unknown) -trend daily (units (u nknown) date) unknown) (unknown) (no (unknown) (unknown) [id number] (units (unkn own) date) unknown) (unknown) (no (unknown) (unknown) 08/08/22 08/08/22 (units (unknown) date) 08/08/22 unknown) (unknown) (no (unknown) (unknown) 08/08/22 08/08/22 (units (unknown) date) 08/09/22 unknown) (unknown) (no (unknown) (unknown) 08/08/22 22:04 (units (unknown) date) unknown) (unknown) (no (unknown) (unknown) 08/08/22 22:48 (units (unknown) date) unknown) (unknown) (no (unknown) (unknown) 08/09/22 08/09/22 (units (unknown) date) 08/09/22 unknown) (unknown) (no (unknown) (unknown) 08/09/22 08/09/22 (units (unknown) date) unknown) (unknown) (no (unknown) (unknown) 08/09/22 04:16 (units (unknown) date) unknown) (unknown) (no (unknown) (unknown) 08/09/22 07:23 (units (unknown) date) unknown) (unknown) (no (unknown) (unknown) 08/09/22 (units (unkno wn) date) unknown) (unknown) (no (unknown) (unknown) 04:16 04:16 04:30 (units (unknown) date) unknown) (unknown) (no (unknown) (unknown) 04:30 04:30 09:00 (units (unknown) date) unknown) (unknown) (no (unknown) (unknown) 09:00 11:45 (units (un known) date) unknown) (unknown) (no (unknown) (unknown) 1. Acute alcohol (units (unknown) date) withdrawal with unknown) DTs, improving (unknown) (no (unknown) (unknown) 10:00 08/09/22 (units (unknown) date) unknown) (unknown) (no (unknown) (unknown) 11:00 08/09/22 (units (unknown) date) unknown) (unknown) (no (unknown) (unknown) 11:00 (units (unkno wn) date) unknown) (unknown) (no (unknown) (unknown) 12:00 08/09/22 (units (unknown) date) unknown) (unknown) (no (unknown) (unknown) 12:00 (units (unkno wn) date) unknown) (unknown) (no (unknown) (unknown) 12:02 08/09/22 (units (unknown) date) unknown) (unknown) (no (unknown) (unknown) 13:00 08/09/22 (units (unknown) date) unknown) (unknown) (no (unknown) (unknown) 13:00 (units (unkno wn) date) unknown) (unknown) (no (unknown) (unknown) 13:29 08/09/22 (units (unknown) date) unknown) (unknown) (no (unknown) (unknown) 14:00 08/09/22 (units (unknown) date) unknown) (unknown) (no (unknown) (unknown) 14:00 (units (unkno wn) date) unknown) (unknown) (no (unknown) (unknown) 14:07 08/09/22 (units (unknown) date) unknown) (unknown) (no (unknown) (unknown) 15:00 08/09/22 (units (unknown) date) unknown) (unknown) (no (unknown) (unknown) 15:00 (units (unkno wn) date) unknown) (unknown) (no (unknown) (unknown) 16:00 (units (unkno wn) date) unknown) (unknown) (no (unknown) (unknown) 16:15 08/09/22 (units (unknown) date) unknown) (unknown) (no (unknown) (unknown) 2. Acute (units (unkno wn) date) encephalopathy, unknown) resolved (unknown) (no (unknown) (unknown) 21:00 21:00 21:00 (units (unknown) date) unknown) (unknown) (no (unknown) (unknown) 21:00 22:30 04:16 (units (unknown) date) unknown) (unknown) (no (unknown) (unknown) 3. Hypernatremia, (units (unknown) date) resolved unknown) (unknown) (no (unknown) (unknown) 300 mg PO DAILY (units (unknown) date) unknown) (unknown) (no (unknown) (unknown) 4. Depression and (units (unknown) date) anxiety unknown) (unknown) (no (unknown) (unknown) 5. Anemia, chronic (units (unknown) date) unknown) (unknown) (no (unknown) (unknown) 50 mg PO PRN PRN (units (unknown) date) (Reason: Anxiety) unknown) (unknown) (no (unknown) (unknown) 6. GERD (units (unkno wn) date) unknown) (unknown) (no (unknown) (unknown) 7. UTI (units (unkno wn) date) unknown) (unknown) (no (unknown) (unknown) ABD: soft, (units (unk nown) date) nontender, unknown) nondistended, no organomegaly (unknown) (no (unknown) (unknown) ALT 51 H (units (unkno wn) date) unknown) (unknown) (no (unknown) (unknown) ALT 64 H (units (unkno wn) date) unknown) (unknown) (no (unknown) (unknown) ALT (units (unkno wn) date) unknown) (unknown) (no (unknown) (unknown) AST 288 H (units (unkn own) date) unknown) (unknown) (no (unknown) (unknown) AST 424 H (units (unkn own) date) unknown) (unknown) (no (unknown) (unknown) AST (units (unkno wn) date) unknown) (unknown) (no (unknown) (unknown) Age/Sex: 31 / F (units (unknown) date) unknown) (unknown) (no (unknown) (unknown) Albumin 3.6 (units (un known) date) unknown) (unknown) (no (unknown) (unknown) Albumin 4.4 (units (un known) date) unknown) (unknown) (no (unknown) (unknown) Albumin (units (unkno wn) date) unknown) (unknown) (no (unknown) (unknown) Albumin/Globulin (units (unknown) date) Ratio 1.3 unknown) (unknown) (no (unknown) (unknown) Albumin/Globulin (units (unknown) date) Ratio 1.5 unknown) (unknown) (no (unknown) (unknown) Albumin/Globulin (units (unknown) date) Ratio unknown) (unknown) (no (unknown) (unknown) Alcohol withdrawal (units (unknown) date) delirium, acute, unknown) hyperactive (unknown) (no (unknown) (unknown) Alcoholism (units (unk nown) date) unknown) (unknown) (no (unknown) (unknown) Alkaline (units (unkno wn) date) Phosphatase 59 unknown) (unknown) (no (unknown) (unknown) Alkaline (units (unkno wn) date) Phosphatase 71 unknown) (unknown) (no (unknown) (unknown) Alkaline (units (unkno wn) date) Phosphatase unknown) (unknown) (no (unknown) (unknown) Anemia (-2018) (units (unknown) date) unknown) (unknown) (no (unknown) (unknown) BUN 7 (units (unkno wn) date) unknown) (unknown) (no (unknown) (unknown) BUN 8 (units (unkno wn) date) unknown) (unknown) (no (unknown) (unknown) BUN (units (unkno wn) date) unknown) (unknown) (no (unknown) (unknown) BUN/Creatinine (units (unknown) date) Ratio 8.9 unknown) (unknown) (no (unknown) (unknown) BUN/Creatinine (units (unknown) date) Ratio 9.2 unknown) (unknown) (no (unknown) (unknown) BUN/Creatinine (units (unknown) date) Ratio unknown) (unknown) (no (unknown) (unknown) Baso # (Auto) 100 (units (unknown) date) unknown) (unknown) (no (unknown) (unknown) Baso # (Auto) (units ( unknown) date) unknown) (unknown) (no (unknown) (unknown) Baso % (Auto) 1.9 (units (unknown) date) unknown) (unknown) (no (unknown) (unknown) Baso % (Auto) 2.5 (units (unknown) date) H unknown) (unknown) (no (unknown) (unknown) Baso % (Auto) (units ( unknown) date) unknown) (unknown) (no (unknown) (unknown) Blood Pressure (units (unknown) date) 100/56 L unknown) (unknown) (no (unknown) (unknown) Blood Pressure (units (unknown) date) 102/64 88/59 L unknown) (unknown) (no (unknown) (unknown) Blood Pressure (units (unknown) date) 102/64 unknown) (unknown) (no (unknown) (unknown) Blood Pressure (units (unknown) date) 93/59 L 93/59 L unknown) (unknown) (no (unknown) (unknown) Blood Pressure (units (unknown) date) 97/64 119/65 unknown) (unknown) (no (unknown) (unknown) Blood Pressure (units (unknown) date) 98/61 101/54 L unknown) (unknown) (no (unknown) (unknown) Blood Pressure (units (unknown) date) unknown) (unknown) (no (unknown) (unknown) CV: regular rate (units (unknown) date) and rhythm, no unknown) murmurs (unknown) (no (unknown) (unknown) Calcium 7.7 L (units ( unknown) date) unknown) (unknown) (no (unknown) (unknown) Calcium 8.4 (units (un known) date) unknown) (unknown) (no (unknown) (unknown) Calcium (units (unkno wn) date) unknown) (unknown) (no (unknown) (unknown) Carbon Dioxide 30 (units (unknown) date) unknown) (unknown) (no (unknown) (unknown) Carbon Dioxide 33 (units (unknown) date) H unknown) (unknown) (no (unknown) (unknown) Carbon Dioxide (units (unknown) date) unknown) (unknown) (no (unknown) (unknown) Chief complaint: (units (unknown) date) needs to detox unknown) (unknown) (no (unknown) (unknown) Chloride 104 (units (u nknown) date) unknown) (unknown) (no (unknown) (unknown) Chloride 107 (units (u nknown) date) unknown) (unknown) (no (unknown) (unknown) Chloride (units (unkno wn) date) unknown) (unknown) (no (unknown) (unknown) Comment: needs (units (unknown) date) inpatient treatment unknown) for EtOH (unknown) (no (unknown) (unknown) Comment: (units (unkno wn) date) unknown) (unknown) (no (unknown) (unknown) Conjugated (units (unk nown) date) Bilirubin 0.0 unknown) (unknown) (no (unknown) (unknown) Conjugated (units (unk nown) date) Bilirubin unknown) (unknown) (no (unknown) (unknown) Consult to [facility] - (units (unknown) date) 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 unknown) Routine (unknown) (no (unknown) (unknown) Consult to (units (unk nown) date) Tele-baseball scout unknown) Routine (unknown) (no (unknown) (unknown) Consulting (units (unk nown) date) Provider: Intercept unknown) Tele-intensivists (unknown) (no (unknown) (unknown) Consults: (units (unkn own) date) unknown) (unknown) (no (unknown) (unknown) Continued (units (unkn own) date) unknown) (unknown) (no (unknown) (unknown) Creatinine 0.76 (units (unknown) date) unknown) (unknown) (no (unknown) (unknown) Creatinine 0.90 (units (unknown) date) unknown) (unknown) (no (unknown) (unknown) Creatinine (units (unk nown) date) unknown) (unknown) (no (unknown) (unknown) : 1990 (units (unknown) date) Acct:[id number] unknown) (unknown) (no (unknown) (unknown) Date Patient Seen: (units (unknown) date) 08/09/22 unknown) (unknown) (no (unknown) (unknown) Date of Service: (units (unknown) date) 08/08/22 unknown) (unknown) (no (unknown) (unknown) Date of admission: (units (unknown) date) unknown) (unknown) (no (unknown) (unknown) Deep Vein (units (unkn own) date) Thrombosis/Pulmonar unknown) y Embolism Present on Admission: No (unknown) (no (unknown) (unknown) Discharge Data (units (unknown) date) unknown) (unknown) (no (unknown) (unknown) Discharge Date: (units (unknown) date) 08/09/22 unknown) (unknown) (no (unknown) (unknown) Discharge (units (unkn own) date) Diagnosis: unknown) (unknown) (no (unknown) (unknown) Discharge Plan (units (unknown) date) unknown) (unknown) (no (unknown) (unknown) Discharge (units (unkn own) date) Providers unknown) (unknown) (no (unknown) (unknown) Discharge Summary (units (unknown) date) unknown) (unknown) (no (unknown) (unknown) Discharge orders + (units (unknown) date) Medications unknown) (unknown) (no (unknown) (unknown) Discharge (units (unkn own) date) provider: unknown) (unknown) (no (unknown) (unknown) EXT: warm and well (units (unknown) date) perfused with no unknown) edema (unknown) (no (unknown) (unknown) Each time she has (units (unknown) date) refused further unknown) treatment to rehab upon discharge. Her last (unknown) (no (unknown) (unknown) Eos # (Auto) 0 (units (unknown) date) unknown) (unknown) (no (unknown) (unknown) Eos # (Auto) (units (u nknown) date) unknown) (unknown) (no (unknown) (unknown) Eos % (Auto) 0.7 L (units (unknown) date) unknown) (unknown) (no (unknown) (unknown) Eos % (Auto) 0.8 L (units (unknown) date) unknown) (unknown) (no (unknown) (unknown) Eos % (Auto) (units (u nknown) date) unknown) (unknown) (no (unknown) (unknown) Estimated GFR > 60 (units (unknown) date) unknown) (unknown) (no (unknown) (unknown) Estimated GFR (units ( unknown) date) unknown) (unknown) (no (unknown) (unknown) Ethyl Alcohol 393 (units (unknown) date) H unknown) (unknown) (no (unknown) (unknown) Ethyl Alcohol (units ( unknown) date) unknown) (unknown) (no (unknown) (unknown) Exam Narrative: (units (unknown) date) unknown) (unknown) (no (unknown) (unknown) Exam (units (unkno wn) date) unknown) (unknown) (no (unknown) (unknown) Family History (units (unknown) date) (Reviewed 08/09/22 unknown) @ 05:03 by Roberto Vasquez MD) (unknown) (no (unknown) (unknown) Family/Other (units (u nknown) date) Alcoholism unknown) (unknown) (no (unknown) (unknown) Family/Other (units (u nknown) date) Diabetes mellitus unknown) (unknown) (no (unknown) (unknown) Father Alcoholism (units (unknown) date) unknown) (unknown) (no (unknown) (unknown) Tonia Schneider MD (units (unknown) date) [Primary Care unknown) Provider] (unknown) (no (unknown) (unknown) Follow (units (unkno wn) date) up/Referrals: unknown) (unknown) (no (unknown) (unknown) GEN: no distress, (units (unknown) date) no tremors unknown) (unknown) (no (unknown) (unknown) Globulin 2.4 (units (u nknown) date) unknown) (unknown) (no (unknown) (unknown) Globulin 3.3 (units (u nknown) date) unknown) (unknown) (no (unknown) (unknown) Globulin (units (unkno wn) date) unknown) (unknown) (no (unknown) (unknown) Glucose 84 (units (unk nown) date) unknown) (unknown) (no (unknown) (unknown) Glucose 92 (units (unk nown) date) unknown) (unknown) (no (unknown) (unknown) Glucose (units (unkno wn) date) unknown) (unknown) (no [...] extraction () unknown) (unknown) (no (unknown) (unknown) HEENT: moist (units (u nknown) date) mucous membranes, unknown) PERRL (unknown) (no (unknown) (unknown) Has provider been (units (unknown) date) notified: Yes unknown) (unknown) (no (unknown) (unknown) Hct 31.4 L (units (unk nown) date) unknown) (unknown) (no (unknown) (unknown) Hct 37.0 (units (unkno wn) date) unknown) (unknown) (no (unknown) (unknown) Hct (units (unkno wn) date) unknown) (unknown) (no (unknown) (unknown) Hgb 10.1 L (units (unk nown) date) unknown) (unknown) (no (unknown) (unknown) Hgb 11.9 L (units (unk nown) date) unknown) (unknown) (no (unknown) (unknown) Hgb (units (unkno wn) date) unknown) (unknown) (no (unknown) (unknown) History of Present (units (unknown) date) Illness unknown) (unknown) (no (unknown) (unknown) Hospital Course (units (unknown) date) unknown) (unknown) (no (unknown) (unknown) In the ED workup (units (unknown) date) was done, vitals unknown) notable for tachycardia. Initial CIWA 17, she (unknown) (no (unknown) (unknown) Insomnia (units (unkno wn) date) unknown) (unknown) (no (unknown) (unknown) [facility] (units (unknown) date) [address]) [place] [address] (unknown) (no (unknown) (unknown) Laboratory Results (units (unknown) date) - last 24 hr unknown) (unknown) (no (unknown) (unknown) Labs (units (unkno wn) date) unknown) (unknown) (no (unknown) (unknown) Labs: (units (unkno wn) date) unknown) (unknown) (no (unknown) (unknown) Lactate 2.1 (units (un known) date) unknown) (unknown) (no (unknown) (unknown) Lactate 2.9 H (units ( unknown) date) unknown) (unknown) (no (unknown) (unknown) Lactate (units (unkno wn) date) unknown) (unknown) (no (unknown) (unknown) Lipase 408 H (units (u nknown) date) unknown) (unknown) (no (unknown) (unknown) Lipase (units (unkno wn) date) unknown) (unknown) (no (unknown) (unknown) Lymph # (Auto) (units (unknown) date) 2600 unknown) (unknown) (no (unknown) (unknown) Lymph # (Auto) (units (unknown) date) 2800 unknown) (unknown) (no (unknown) (unknown) Lymph # (Auto) (units (unknown) date) unknown) (unknown) (no (unknown) (unknown) Lymph % (Auto) (units (unknown) date) 51.5 H unknown) (unknown) (no (unknown) (unknown) Lymph % (Auto) (units (unknown) date) 54.2 H unknown) (unknown) (no (unknown) (unknown) Lymph % (Auto) (units (unknown) date) unknown) (unknown) (no (unknown) (unknown) MCH 25.4 L (units (unk nown) date) unknown) (unknown) (no (unknown) (unknown) MCH 25.7 L (units (unk nown) date) unknown) (unknown) (no (unknown) (unknown) MCH (units (unkno wn) date) unknown) (unknown) (no (unknown) (unknown) MCHC 32.1 (units (unkn own) date) unknown) (unknown) (no (unknown) (unknown) MCHC 32.2 (units (unkn own) date) unknown) (unknown) (no (unknown) (unknown) MCHC (units (unkno wn) date) unknown) (unknown) (no (unknown) (unknown) MCV 79.0 L (units (unk nown) date) unknown) (unknown) (no (unknown) (unknown) MCV 80.2 (units (unkno wn) date) unknown) (unknown) (no (unknown) (unknown) MCV (units (unkno wn) date) unknown) (unknown) (no (unknown) (unknown) Magnesium 2.2 (units ( unknown) date) unknown) (unknown) (no (unknown) (unknown) Magnesium (units (unkn own) date) unknown) (unknown) (no (unknown) (unknown) Jabari Lion Jaida, (units (unknown) date) DO unknown) (unknown) (no (unknown) (unknown) Medical History (units (unknown) date) (Reviewed 08/09/22 unknown) @ 05:03 by Roberto Vasquez MD) (unknown) (no (unknown) (unknown) Menometrorrhagia (units (unknown) date) unknown) (unknown) (no (unknown) (unknown) Yates # (Auto) 300 (units (unknown) date) unknown) (unknown) (no (unknown) (unknown) Yates # (Auto) 400 (units (unknown) date) unknown) (unknown) (no (unknown) (unknown) Yates # (Auto) (units ( unknown) date) unknown) (unknown) (no (unknown) (unknown) Yates % (Auto) 6.5 (units (unknown) date) unknown) (unknown) (no (unknown) (unknown) Yates % (Auto) 8.6 (units (unknown) date) unknown) (unknown) (no (unknown) (unknown) Yates % (Auto) (units ( unknown) date) unknown) (unknown) (no (unknown) (unknown) Mother Diabetes (units (unknown) date) mellitus unknown) (unknown) (no (unknown) (unknown) Ms. Connors is a 31W (units (unknown) date) with PMH alcohol unknown) abuse, DTs, alcoholic seizure who presents (unknown) (no (unknown) (unknown) NECK: trachea (units ( unknown) date) midline, no JVD unknown) (unknown) (no (unknown) (unknown) NEURO: awake and (units (unknown) date) alert, no focal unknown) deficits (unknown) (no (unknown) (unknown) Tonia Schneider MD (units (unknown) date) unknown) (unknown) (no (unknown) (unknown) Narrative (units (unkn own) date) unknown) (unknown) (no (unknown) (unknown) Narrative: (units (unk nown) date) unknown) (unknown) (no (unknown) (unknown) Neut # (Auto) 1900 (units (unknown) date) unknown) (unknown) (no (unknown) (unknown) Neut # (Auto) (units ( unknown) date) unknown) (unknown) (no (unknown) (unknown) Neut % (Auto) 36.6 (units (unknown) date) L unknown) (unknown) (no (unknown) (unknown) Neut % (Auto) 36.7 (units (unknown) date) L unknown) (unknown) (no (unknown) (unknown) Neut % (Auto) (units ( unknown) date) unknown) (unknown) (no (unknown) (unknown) Obesity (units (unkno wn) date) unknown) (unknown) (no (unknown) (unknown) Objective (units (unkn own) date) unknown) (unknown) (no (unknown) (unknown) Overweight (units (unk nown) date) unknown) (unknown) (no (unknown) (unknown) Oxygen Delivery (units (unknown) date) Method Room Air unknown) (unknown) (no (unknown) (unknown) Oxygen Delivery (units (unknown) date) Method unknown) (unknown) (no (unknown) (unknown) PFSH (units (unkno wn) date) unknown) (unknown) (no (unknown) (unknown) PULM: clear (units (un known) date) bilaterally, no unknown) wheezes, rhonchi, rales (unknown) (no (unknown) (unknown) Patient (units (unkno wn) date) Disposition: Home unknown) (unknown) (no (unknown) (unknown) Patient: (units (unkno wn) date) Sarah Connors R unknown) MR#: M (unknown) (no (unknown) (unknown) Plt Count 332 (units ( unknown) date) unknown) (unknown) (no (unknown) (unknown) Plt Count 396 (units ( unknown) date) unknown) (unknown) (no (unknown) (unknown) Plt Count (units (unkn own) date) unknown) (unknown) (no (unknown) (unknown) Potassium 3.5 (units ( unknown) date) unknown) (unknown) (no (unknown) (unknown) Potassium 3.6 (units ( unknown) date) unknown) (unknown) (no (unknown) (unknown) Potassium (units (unkn own) date) unknown) (unknown) (no (unknown) (unknown) Prescriptions: (units (unknown) date) unknown) (unknown) (no (unknown) (unknown) Primary Care (units (u nknown) date) Provider: unknown) Tonia Schneider (unknown) (no (unknown) (unknown) Primary care (units (u nknown) date) physician: unknown) (unknown) (no (unknown) (unknown) Procalcitonin < (units (unknown) date) 0.03 unknown) (unknown) (no (unknown) (unknown) Procalcitonin (units ( unknown) date) unknown) (unknown) (no (unknown) (unknown) Provider (units (unkno wn) date) unknown) (unknown) (no (unknown) (unknown) Provider: (units (unkn own) date) Jabari Sena unknown) D.OForest (unknown) (no (unknown) (unknown) Pulse Oximetry 100 (units (unknown) date) unknown) (unknown) (no (unknown) (unknown) Pulse Oximetry 96 (units (unknown) date) unknown) (unknown) (no (unknown) (unknown) Pulse Oximetry 98 (units (unknown) date) unknown) (unknown) (no (unknown) (unknown) Pulse Oximetry 99 (units (unknown) date) 99 unknown) (unknown) (no (unknown) (unknown) Pulse Rate 77 80 (units (unknown) date) unknown) (unknown) (no (unknown) (unknown) Pulse Rate 81 78 (units (unknown) date) unknown) (unknown) (no (unknown) (unknown) Pulse Rate 81 (units ( unknown) date) unknown) (unknown) (no (unknown) (unknown) Pulse Rate 87 (units ( unknown) date) unknown) (unknown) (no (unknown) (unknown) Pulse Rate 88 95 H (units (unknown) date) unknown) (unknown) (no (unknown) (unknown) Pulse Rate 91 H (units (unknown) date) unknown) (unknown) (no (unknown) (unknown) Quality (units (unkno wn) date) unknown) (unknown) (no (unknown) (unknown) RBC 3.98 L (units (unk nown) date) unknown) (unknown) (no (unknown) (unknown) RBC 4.61 (units (unkno wn) date) unknown) (unknown) (no (unknown) (unknown) RBC (units (unkno wn) date) unknown) (unknown) (no (unknown) (unknown) RDW 19.5 H (units (unk nown) date) unknown) (unknown) (no (unknown) (unknown) RDW 19.7 H (units (unk nown) date) unknown) (unknown) (no (unknown) (unknown) RDW (units (unkno wn) date) unknown) (unknown) (no (unknown) (unknown) Reason for (units (unk nown) date) consultation: unknown) 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 (unknown) (no (unknown) (unknown) Respiratory Rate (units (unknown) date) 11 L 18 unknown) (unknown) (no (unknown) (unknown) Respiratory Rate (units (unknown) date) 15 20 unknown) (unknown) (no (unknown) (unknown) Respiratory Rate (units (unknown) date) 17 unknown) (unknown) (no (unknown) (unknown) Respiratory Rate (units (unknown) date) 19 unknown) (unknown) (no (unknown) (unknown) Respiratory Rate (units (unknown) date) 20 unknown)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 given (units (unkn own) date) phenobarbital. When unknown) I see her she is sleeping soundly. Vitals notable Result panel 2487 (unknown) (no (unknown) (unknown) (no value) (units (unk nown) date) unknown) (unknown) (no (unknown) (unknown) >100,000 cfu/ml (unkno wn) date) (unknown) (no (unknown) (unknown) GNBGram negative (units (unknown) date) bacilli unknown) (unknown) (no (unknown) (unknown) Identification (units (unknown) date) and Sensitivity unknown) to Follow Result panel 2488 (unknown) (no (unknown) (unknown) (no value) (units (unk nown) date) unknown) (unknown) (no (unknown) (unknown) >100,000 cfu/ml (unkno wn) date) (unknown) (no (unknown) (unknown) >=32 (units (unkno wn) date) unknown) (unknown) (no (unknown) (unknown) >=64 (units (unkno wn) date) unknown) (unknown) (no (unknown) (unknown) <=0.12 (units (unkno wn) date) unknown) (unknown) (no (unknown) (unknown) <=0.25 (units (unkno wn) date) unknown) (unknown) (no (unknown) (unknown) <=0.5 (units (unkno wn) date) unknown) (unknown) (no (unknown) (unknown) <=1 (units (unkno wn) date) unknown) (unknown) (no (unknown) (unknown) <=16 (units (unkno wn) date) unknown) (unknown) (no (unknown) (unknown) <=2 (units (unkno wn) date) unknown) (unknown) (no (unknown) (unknown) <=20 (units (unkno wn) date) unknown) (unknown) (no (unknown) (unknown) <=4 (units (unkno wn) date) unknown) (unknown) (no (unknown) (unknown) 1 (units (unkno wn) date) unknown) (unknown) (no (unknown) (unknown) 64 (units (unkno wn) date) unknown) (unknown) (no (unknown) (unknown) ENTAEREnterobacter (units (unknown) date) aerogenes unknown) (unknown) (no (unknown) (unknown) ESCCOLEscherichia (units (unknown) date) coli unknown) Social History date description facility 2022-06-12 00:00 Ex-smoker (finding) [facility] 2022-07-12 00:00 Ex-smoker (finding) [facility] 2022-07-13 00:00 Ex-smoker (finding) [facility] 2022-07-31 00:00 Ex-smoker (finding) [facility] 2022-08-01 00:00 Ex-smoker (finding) [facility] 2022-08-08 00:00 Ex-smoker (finding) [facility] Vital Signs date measurement value units 2022-06-12 [...] 56.69 kg 2022-06-12 00:00 weight_standard 124.98 lb 2022-07-12 00:00 BMI 20.1 kg/m2 2022-07-12 00:00 height_metric 157.48 cm 2022-07-12 00:00 height_standard 62 in 2022-07-12 00:00 temperature_metric 36.22 C 2022-07-12 00:00 temperature_standard 97.2 F 2022-07-12 00:00 weight_metric 49.89 kg 2022-07-12 00:00 weight_standard 109.99 lb 2022-07-13 00:00 BP_diastolic 75 mmHg 2022-07-13 00:00 BP_systolic 116 mmHg 2022-07-13 00:00 heart_rate 98 /min 2022-07-13 00:00 height_metric 157.48 cm 2022-07-13 00:00 height_standard 62 in 2022-07-13 00:00 o2_saturation 98 % 2022-07-13 00:00 respiration_rate 20 /min 2022-07-13 00:00 temperature_metric 37.11 C 2022-07-13 00:00 temperature_standard 98.8 F 2022-07-14 00:00 BP_diastolic 74 mmHg 2022-07-14 00:00 BP_systolic 106 mmHg 2022-07-14 00:00 heart_rate 67 /min 2022-07-14 00:00 o2_saturation 98 % 2022-07-14 00:00 weight_metric 54.5 kg 2022-07-14 00:00 weight_standard 120.15 lb 2022-07-31 00:00 BMI 21.7 kg/m2 2022-07-31 00:00 BP_diastolic 75 mmHg 2022-07-31 00:00 BP_systolic 120 mmHg 2022-07-31 00:00 heart_rate 72 /min 2022-07-31 00:00 height_metric 157.48 cm 2022-07-31 00:00 height_standard 62 in 2022-07-31 00:00 o2_saturation 99 % 2022-07-31 00:00 respiration_rate 33 /min 2022-07-31 00:00 temperature_metric 36.5 C 2022-07-31 00:00 temperature_standard 97.7 F 2022-07-31 00:00 weight_metric 53.97 kg 2022-07-31 00:00 weight_standard 118.98 lb 2022-08-01 00:00 BP_diastolic 73 mmHg 2022-08-01 00:00 BP_systolic 102 mmHg 2022-08-01 00:00 heart_rate 87 /min 2022-08-01 00:00 height_metric 157.48 cm 2022-08-01 00:00 height_standard 62 in 2022-08-01 00:00 o2_saturation 98 % 2022-08-01 00:00 respiration_rate 20 /min 2022-08-01 00:00 temperature_metric 36.5 C 2022-08-01 00:00 temperature_standard 97.7 F 2022-08-01 00:00 weight_metric 53.97 kg 2022-08-01 00:00 weight_standard 118.98 lb 2022-08-02 00:00 weight_metric 54.8 kg 2022-08-02 00:00 weight_standard 120.81 lb 2022-08-03 00:00 BP_diastolic 69 mmHg 2022-08-03 00:00 BP_systolic 121 mmHg 2022-08-03 00:00 heart_rate 62 /min 2022-08-03 00:00 o2_saturation 93 % 2022-08-03 00:00 respiration_rate 18 /min 2022-08-03 00:00 temperature_metric 37.06 C 2022-08-03 00:00 temperature_standard 98.7 F 2022-08-08 00:00 BMI 21.7 kg/m2 2022-08-08 00:00 heart_rate 100 /min 2022-08-08 00:00 height_metric 157.48 cm 2022-08-08 00:00 height_standard 62 in 2022-08-08 00:00 o2_saturation 96 % 2022-08-08 00:00 respiration_rate 20 /min 2022-08-08 00:00 temperature_metric 36.67 C 2022-08-08 00:00 temperature_standard 98 F 2022-08-08 00:00 weight_metric 53.97 kg 2022-08-08 00:00 weight_standard 118.98 lb 2022-08-09 00:00 BP_diastolic 56 mmHg 2022-08-09 00:00 BP_systolic 100 mmHg 2022-08-09 00:00 heart_rate 81 /min 2022-08-09 00:00 o2_saturation 100 % 2022-08-09 00:00 respiration_rate 20 /min 2022-08-09 00:00 temperature_metric 36.61 C 2022-08-09 00:00 temperature_standard 97.9 F
--- NOTE | 2022-08-18 06:21 | ED Physician Documentation ---
PD HPI ALTERED MENTAL STATUS - Stated complaint Stated Complaint: ETOH - Chief complaint Chief Complaint: MHE - History obtained from History obtained from: Patient, EMS - History of Present Illness Timing - onset: Today Timing - duration: Hours Timing - details: Gradual onset, Still present Quality / character: Confused Associated symptoms: No: Fever, Headache, Stiff neck, Dyspnea, Cough, NVD, Urinary sx, General weakness, Focal weakness, Seizure activity, Syncope Contributing factors: Intoxicated [place] status: 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, Ambulatory, Independent Similar symptoms before: Diagnosis (alcohol intoxication) Recently seen: Not recently seen - Additional information Additional information: 31-year-old female with a history of alcohol intoxication was discovered on a welfare check to be significantly intoxicated with breath alcohol of 360 and no one present for observation. She was transported to the hospital. The patient herself gives history that she is going through a divorce she has children who are 2 and 4 years old and she is not coping with this well. She has increased her alcohol use over the past several weeks and she is not able to give much more history than that. Her children are currently with their father and the patient believes they are safe. Review of Systems Unable to obtain: Intoxicated PD PAST MEDICAL HISTORY - Past Medical History Cardiovascular: None Respiratory: None Neuro: Other Endocrine/Autoimmune: None GI: None [employer]: Ovarian cysts, Miscarriage(s) : None HEENT: None Psych: Depression, Other Musculoskeletal: None Derm: None - Past Surgical History Past Surgical History: Yes /[employer]: Dilation and currettage - Present Medications Home Medications: Ambulatory Orders Medication Instructions Recorded Confirmed Quetiapine Fumarate [Seroquel] 300 mg PO DAILY 06/19/22 08/17/22 Sertraline [Zoloft] 50 mg PO DAILY 08/17/22 08/17/22 - Allergies Allergies/Adverse Reactions: Allergies Allergy/AdvReac Type Severity Reaction Status Date / Time metoclopramide [From Reglan] Allergy Nausea Verified 08/17/22 20:51 hydrocodone bitartrate * AdvReac Mild Hives Verified 08/17/22 20:51 [From Lortab] - Social History Does the pt smoke?: No Smoking Status: Never smoker Does the pt drink ETOH?: Yes Does the pt have substance abuse?: No - Immunizations Immunizations are current?: Yes - POLST Patient has POLST: No PD ED PE NORMAL - Vitals Vital signs reviewed: Yes (Hypertensive) - General General: No acute distress, Well developed/nourished, Other (A broad smile and slurred speech consistent with alcohol intoxication. 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, No motor deficit, No sensory deficit, Other (Slurred speech) Eye Opening: Spontaneous Motor: Obeys Commands Verbal: Oriented GCS Score: 15 - Psych Psych: Normal mood, Normal affect Results - Vitals Vitals: Vital Signs - 24 hr 08/17/22 08/17/22 08/18/22 20:52 22:54 00:00 Temperature 36.9 C Heart Rate 89 92 85 Respiratory 16 16 16 Rate Blood Pressure 127/95 H 132/94 H O2 Saturation 95 99 98 08/18/22 08/18/22 08/18/22 02:00 04:00 06:00 Temperature Heart Rate 92 85 86 Respiratory 15 18 18 Rate Blood Pressure 112/66 102/67 106/72 O2 Saturation 97 98 99 Oxygen O2 Source Room air - Labs Labs: Laboratory Tests 08/17/22 08/17/22 08/17/22 21:30 21:30 21:37 WBC RBC Hgb Hct MCV MCH MCHC RDW Plt Count MPV Neut # (Auto) Lymph # (Auto) [place] # (Auto) Eos # (Auto) Baso # (Auto) Absolute Nucleated RBC Nucleated RBC % Sodium 147 H Potassium 3.9 Chloride 112 H Carbon Dioxide 26 Anion Gap 9.0 BUN < 5 L Creatinine 0.7 Estimated GFR (MDRD) 96 Glucose 96 Calcium 8.2 L Total Bilirubin 0.4 AST 82 H ALT 28 Alkaline Phosphatase 59 Total Protein 7.4 Albumin 4.2 Globulin 3.2 Albumin/Globulin Ratio 1.3 Lipase 77 H TSH Urine Color YELLOW Urine Clarity HAZY Urine pH 6.5 Ur Specific [place] 1.010 Urine Protein TRACE Urine Glucose (UA) NEGATIVE Urine Ketones NEGATIVE Urine Occult Blood SMALL H Urine Nitrite NEGATIVE Urine Bilirubin NEGATIVE Urine Urobilinogen 0.2 (NORMAL) Ur Leukocyte Esterase SMALL H Urine RBC 11-25 H Urine WBC 11-25 H Ur Squamous Epith Cells MANY Squamous H Urine Bacteria Moderate H Urine Mucus Few Strands Ur Microscopic Review INDICATED Urine Culture Comments NOT INDICATED Urine HCG, Qual NEGATIVE Salicylates < 6.0 Urine Opiates Screen NEGATIVE Ur Oxycodone Screen NEGATIVE Urine Methadone Screen NEGATIVE Ur Propoxyphene Screen NEGATIVE Acetaminophen < 10 L Ur Barbiturates Screen POSITIVE H Ur Tricyclics Screen NEGATIVE Ur Phencyclidine Scrn NEGATIVE Ur Amphetamine Screen NEGATIVE U Methamphetamines Scrn NEGATIVE U Benzodiazepines Scrn POSITIVE H Urine Cocaine Screen NEGATIVE U Cannabinoids Screen NEGATIVE Ethyl Alcohol 435.8 08/17/22 08/17/22 21:37 22:01 WBC 5.7 RBC 4.45 Hgb 11.6 L Hct 37.6 MCV 84.5 MCH 26.1 L MCHC 30.9 L RDW 17.5 H Plt Count 307 MPV 9.0 Neut # (Auto) 2.9 Lymph # (Auto) 2.5 [place] # (Auto) 0.2 Eos # (Auto) 0.1 Baso # (Auto) 0.1 Absolute Nucleated RBC 0.00 Nucleated RBC % 0.0 Sodium Potassium Chloride Carbon Dioxide Anion Gap BUN Creatinine Estimated GFR (MDRD) Glucose Calcium Total Bilirubin AST ALT Alkaline Phosphatase Total Protein Albumin Globulin Albumin/Globulin Ratio Lipase TSH 0.86 Urine Color Urine Clarity Urine pH Ur Specific [place] Urine Protein Urine Glucose (UA) Urine Ketones Urine Occult Blood Urine Nitrite Urine Bilirubin Urine Urobilinogen Ur Leukocyte Esterase Urine RBC Urine WBC Ur Squamous Epith Cells Urine Bacteria Urine Mucus Ur Microscopic Review Urine Culture Comments Urine HCG, Qual Salicylates Urine Opiates Screen Ur Oxycodone Screen Urine Methadone Screen Ur Propoxyphene Screen Acetaminophen Ur Barbiturates Screen Ur Tricyclics Screen Ur Phencyclidine Scrn Ur Amphetamine Screen U Methamphetamines Scrn U Benzodiazepines Scrn Urine Cocaine Screen U Cannabinoids Screen Ethyl Alcohol PD Medical Decision Making - ED course Complexity details: reviewed old records, reviewed results, re-evaluated patient, considered differential, d/w patient Reviewed Lab Results: We reviewed a complete blood count with normal white blood cell count normal hemoglobin hematocrit and platelets. Chemistries were reviewed showing an elevated serum sodium at 147 elevated chloride at 112 a low BUN at 5 mild el evation in AST with normal ALT no other hepatic abnormality lipase mildly elevated at 77. TSH is normal. urine shows contaminated specimen and negative for . toxicology shows positive for barbiturates and benzodiazepines with a blood alcohol of 435.8 my interpretation of these results are consistent with the patient's level of intoxication. ED course: Patient arrived to the emergency department intoxicated and very active. She readily excepted medication for sleep and she was administered 5 mg of Zyprexa with the intention to metabolize her significant alcohol intoxication. We found her alcohol level to be a record for this patient at 435 and she will require more than 10 hours for metabolism for evaluation. Her care is turned over to the [facility] day emergency physician at shift change anticipating metabolism and decision about treatment delayed until sobriety. By 7:30 AM the patient is going through alcohol withdrawal and has a CIWA score of 10. She is administered 2 mg of Ativan intravenously as well as saline magnesium thiamine and oral Multivite as well as Zofran. At shift change her care is turned over to Dr. Coughlin anticipating some form of treatment. Departure - Departure Clinical Impression: Stress reaction Alcoholic intoxication Qualifiers: Complication of substance-induced condition: uncomplicated Qualified Code(s): F10.920 - Alcohol use, unspecified with intoxication, uncomplicated Condition: Stable Instructions: ED Stress React, ED Alcohol Intoxication Follow-Up: [facility] Woodson [Provider Group]
[2022-08-18] MEDS ORDERED: LORazepam 2 MG/ML VIAL IVP STA (07:29)
[2022-08-18] MEDS ORDERED: MAGNESIUM SULFATE 2 GRAM 2 GM/50 ML BAG IV ONE (07:33)
[2022-08-18] MEDS ORDERED: THIAMINE INJ 100 MG in SODIUM CHLORIDE 0.9% 50 ML IV STA (07:33)
[2022-08-18] MEDS ORDERED: SODIUM CHLORIDE 0.9% 1,000 ML IV STA (07:33)
[2022-08-18] MEDS ORDERED: ONDANSETRON 4 MG/2 ML VIAL IVP STA (07:35)
[2022-08-18] MEDS ORDERED: MULTIVITAMIN TABLET PO STA (07:35)
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
[2022-08-18 10:23] VITALS: BP 107/81
== END 2022-08-18 11:38 | disposition home or self-care (01) ==
LOC: EDUNIT# → ED 20:45
DX: F43.9 Reaction to severe stress, unspecified (principal); F43.21 Adjustment disorder with depressed mood; T76.91XA Unspecified adult maltreatment, suspected, initial encounter; F10.20 Alcohol dependence, uncomplicated; Y90.8 Blood alcohol level of 240 mg/100 ml or more
CPT/HCPCS: 36415; 80053; 80306; 80307; 80320; 80329; 81001; 81025; 83690; 84443; 85025; 96365; 96367; 96375; 99284; A9270; J2060; J3411; J7040; 81003; 87086

== ENCOUNTER 2022-08-27 10:35 | Outpatient (CLI) | payer OTHER | END 2022-08-27 10:36 | disposition EMS.NT | LOC: EMS 10:35 | DX: Z04.1 Encounter for examination and observation following transport accident (principal) ==

== ENCOUNTER 2022-10-10 04:23 | Outpatient (CLI) | payer OTHER | END 2022-10-10 23:59 | disposition critical access hospital (66) | LOC: EMS 04:23 | DX: R21 Rash and other nonspecific skin eruption (principal); L29.9 Pruritus, unspecified | CPT/HCPCS: A0425; A0429 ==

== ENCOUNTER 2022-10-10 04:49 | Emergency (ER) | payer OTHER ==
--- NOTE | 2022-10-10 04:56 | ED Physician Documentation ---
History of Present Illness - Stated complaint Stated Complaint: ALLERGIC REACTION - History obtained from History obtained from: Patient, EMS - Additonal information Additional information: HPI from patient BIBA for diffuse pruritic rash that started 2 days ago. She was T+R from ED yesterday, given Benadryl , famotidine, and methylprednisolone, with prescriptions for prednisone and famotidine provided (DENISE form reflects they have been filled, although patient says she has not yet picked them up). She says she had resolution of symptoms by the time she was d/c from ED but over past few hours, pruritic rash has gradually recurred and now with intense pruritus. She denies dyspnea, denies wheezing, denies lightheadedness. Unclear what, if anything, is triggering these episodes. 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: Dilation and currettage - Present Medications Home Medications: Ambulatory Orders Medication Instructions Recorded Confirmed Quetiapine Fumarate [Seroquel] 300 mg PO DAILY 06/19/22 08/17/22 Sertraline [Zoloft] 50 mg PO DAILY 08/17/22 08/17/22 LORazepam [Ativan] 1 mg PO Q6H PRN #20 tablet 08/18/22 PHENobarbitaL [Phenobarbital] 30 mg PO QPM PRN 6 Days #6 tablet 08/18/22 LORazepam [Ativan] 1 - 2 mg PO Q6HR PRN #14 tablet 10/10/22 Ondansetron Odt [Zofran Odt] 4 mg TL Q6H PRN #14 tablet 10/10/22 - Allergies Allergies/Adverse Reactions: Allergies Allergy/AdvReac Type Severity Reaction Status Date / Time metoclopramide [From Reglan] Allergy Nausea Verified 10/10/22 04:57 hydrocodone bitartrate * AdvReac Mild Hives Verified 10/10/22 04:57 [From Lortab] - Social History Does the pt smoke?: No Smoking Status: Never smoker Does the pt drink ETOH?: Yes Does the pt have substance abuse?: No - Immunizations Immunizations are current?: Yes - POLST Patient has POLST: No PD ED PE NORMAL - Vitals Vital signs reviewed: Yes - General General: 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, Well developed/nourished, Other (appeara anxious, generalized tremulousness, hyperkinetic, limited eye contac) - HEENT HEENT: Atraumatic, PERRL, EOMI, Moist mucous membranes - Neck Neck: Supple, no meningeal sign, No bony TTP - Cardiac Cardiac: No murmur - Respiratory Respiratory: No respiratory distress, Clear bilaterally - Abdomen Abdomen: Soft, Non tender ( ) - Back Back: No CVA TTP - Neuro 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: 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, 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, No motor deficit, No sensory deficit, Normal speech Eye Opening: Spontaneous Motor: Obeys Commands Verbal: Oriented GCS Score: 15 PD ED PE EXPANDED - HEENT HEENT: Other (faint right infraorbital ecymosis with swelling or tenderness; patient says "we were playing softball" and she was accidentally struck by the ball) - Cardiac Cardiac: Tachy, Regular Rhythm - Derm Derm: Rash (diffuse, raised erythematous macules and papules with some areas of convolescne; most pronounced on neck anterior chest, BLE (more distal than proximal), sparing of back/posterior trunk) - Extremities Extremities: Other (significant tremulousness in all four limbs, mostly with movement/intention) Results - Vitals Vitals: Oxygen O2 Source Room air PD Medical Decision Making - ED course Complexity details: reviewed old records, reviewed results, re-evaluated p atient, considered differential, d/w patient ED course: marcela's visit is for pruritic rash. she is given 0.3mg IM epinephrine, 4mg IV zofran, and 10mg IM decadron (IV had not been established). She had been given 50mg benadryl en route by EMS. She also was very tremulous for much of her ED stay. While this could be from, or contributed to by, the IM epinpehrine. It is important to note that this patient has a h/o alcoholism with withdraw (DENISE form reflects three inpatient stays in July, for alcohol-withdrawal related problems). However, while patient admits to drinking yesterday after getting home from the ED, drinking a bottle of hard liquor, she says she had been sober for weeks before yesterday; this would make withdraw unlikely to be dangerous (typically would need more time, a longer time of being intoxicated with ongoing alcohol intake, for the receptors to up-regulate, setting up for withdrawal signs/symptoms with cessation of alcohol intake). I asked her this many times, telling her that she appears, increasingly during stay, to be shaking and tremulous enough that she has difficulty getting a cup of water to her lips without the water spilling all over. She insists she just resumed drinking yesterday. More importantly, she tells me she is not interested in alcohol detox, anyway. I discussed ITUHA with her and asked that she keep it in mind should she feel she need help with withdrawal/detox from alcohol or drugs. For her tremulousness, she is given 2mg IM lorazepam, followed by 1mg IV dose x 2. By the time of d/c, she is able to walk steadily without assistance and has minimal tremulousness. As for her rash, there was moderate improvement, with much of the rash faded away, and other areas faded though still visible. I advised her to be certain to strip picker on the rx from for the prednisone and famotidine. She is given another dose of steroid (prednisone) po in ED prior to d/c. provided prescriptions for zofran and ativan Departure - Departure Disposition: 01 Home, Self Care Clinical Impression: Allergic reaction Qualifiers: Encounter type: initial encounter Qualified Code(s): T78.40XA - Allergy, unspecified, initial encounter Alcohol withdrawal Qualifiers: Complication of substance-induced condition: uncomplicated Qualified Code(s): F10.930 - Alcohol use, unspecified with withdrawal, uncomplicated Condition: Good Instructions: ED Withdrawal Alcohol, ED Urticaria Prescriptions: LORazepam [Ativan] 1 - 2 mg PO Q6HR PRN #14 tablet PRN Reason: Anxiety Ondansetron Odt [Zofran Odt] 4 mg TL Q6H PRN #14 tablet PRN Reason: Nausea / Vomiting Comments: Is unclear at this time as to what is causing your rash. It is important that you seek follow-up with your primary care provider, next available appointment, for reevaluation. If this is a persistent or recurrent problem, you might b enefit from referral to a specialist (property consultant). As we discussed, it is important that you fill the prescriptions that were from provided from the [facility] emergency department yesterday (prednisone and famotidine) and take these as prescribed. You were given a dose of steroid in the emergency department this morning, so you would not need another dose of the steroid until tomorrow morning (October 11). You can take an antihistamine such as Benadryl per the label instructions as needed for the rash and the itching. As we discussed, if you have hydroxyzine at home, this should have the same effect and can be used instead of the Benadryl. I am providing you with a prescription for ondansetron (antinausea medication) and lorazepam. The lorazepam is being prescribed for the anxiety and shakiness that you had during your emergency department stay. Do not take the lorazepam in excess of the dose and/or frequency indicated on the label. If the lorazepam is inadequate in controlling those symptoms, consider following up with her primary doctor as soon as can be arranged or else returning to the emergency department. Discharge Date/Time: 10/10/22 08:21
--- OUTSIDE RECORDS SUMMARY | 2022-10-10 05:04 | EXTERNAL MEDICAL SUMMARY RPT | Continuity of Care Document ---
Author Name Unknown Address [address] [place] [address] Phone Organization [facility] Address [address] [place] [address] Phone Care Team Providers Care Funder Name Role Phone Unavailable Unavailable Unavailable Foist, Tonia Unavailable Unavailable Allergies and Intolerances date description facility type (no date) Mild [facility] (unknown) (no date) hydrocodone [facility] (unknown) (no date) metoclopramide [facility] (unknown) Medications date description facility 2022-08-03 00:00 Disulfiram [facility] 2022-10-08 00:00 Prednisone [facility] 2022-10-08 00:00 Famotidine [facility] 2022-07-13 00:00 Fluoxetine [facility] 2022-07-13 00:00 Quetiapine [facility] 2022-07-14 00:00 Thiamine Mononitrate (Vit B1) I [facility] 2022-07-14 00:00 Pantoprazole [facility] 2022-08-03 00:00 Chlordiazepoxide [facility] 2022-07-13 00:00 Hydroxyzine H[facility] Problems date description facility 2022-07-12 00:00 Acute cystitis [facility] 2022-07-13 00:00 Alcohol withdrawal delirium, ac [place], hyperactive [facility] 2022-07-13 00:00 Alcohol withdrawal syndrome [facility] 2022-07-13 09:45 Alcohol dependence with withdra wal, unspecified [facility] 2022-07-13 10:00 Alcohol dependence with withdra wal, unspecified [facility] 2022-07-13 10:48 Alcohol dependence with withdra wal, unspecified [facility] 2022-07-13 14:40 Alcohol dependence with withdra wal, unspecified [facility] 2022-07-13 14:40 Alcohol use, unspecified, uncom plicated [facility] 2022-07-13 14:40 Alcohol use, unspecified with w ithdrawal delirium [facility] 2022-07-13 14:40 Acute cystitis without hematuri a [facility] 2022-07-14 11:49 Alcohol dependence with withdra wal, unspecified [facility] 2022-07-14 11:49 Alcohol use, unspecified, uncom plicated [facility] 2022-07-14 11:49 Alcohol use, unspecified with w ithdrawal delirium [facility] 2022-07-14 11:49 Acute cystitis without hematuri a [facility] 2022-07-14 12:38 Alcohol dependence with withdra wal, unspecified [facility] 2022-07-14 12:38 Alcohol use, unspecified, uncom plicated [facility] 2022-07-14 12:38 Alcohol use, unspecified with w ithdrawal delirium [facility] 2022-07-14 12:38 Acute cystitis without hematuri a [facility] 2022-07-14 13:42 Alcohol dependence with withdra wal, unspecified [facility] 2022-07-14 13:42 Alcohol use, unspecified, [facility] pl[facility] 2022-07-14 13:42 Alcohol use, unspecified with w ithdrawal delirium [facility] 2022-07-14 13:42 Acute cystitis without hematuri a [facility] 2022-07-16 08:08 Alcohol dependence with withdra wal, unspecified [facility] 2022-07-16 08:08 Alcohol use, unspecified, [facility] [employer] plicated [facility] 2022-07-16 08:08 Alcohol use, unspecified with w ithdrawal delirium [facility] 2022-07-16 08:08 Acute cystitis without hematuri a [facility] 2022-07-17 08:54 Alcohol dependence with withdra wal, unspecified [facility] 2022-07-17 08:54 Alcohol use, unspecified, uncom plicated [facility] 2022-07-17 08:54 Alcohol use, unspecified with w ithdrawal delirium [facility] 2022-07-17 08:54 Acute cystitis without hematuri a [facility] 2022-07-17 14:05 Alcohol dependence with withdra wal, unspecified [facility] 2022-07-17 14:05 Alcohol use, unspecified, uncom plicated [facility] 2022-07-17 14:05 Alcohol use, unspecified with w ithdrawal delirium [facility] 2022-07-17 14:05 Acute cystitis without hematuri a [facility] 2022-07-31 00:00 Alcohol withdrawal syndrome [facility] 2022-08-01 11:40 Alcohol dependence with withdra wal, [facility] [place] 2022-08-01 11:41 Alcohol dependence with withdra wal, [facility] 2022-08-01 11:42 Alcohol dependence with withdra wal, [facility] 2022-08-01 11:44 Alcohol dependence with withdra wal, [facility] 2022-08-01 11:45 Alcohol dependence with withdra wal, [facility] 2022-08-01 11:51 Alcohol dependence with withdra wal, [facility] 2022-08-01 11:55 Alcohol dependence with withdra wal, [facility] 2022-08-01 11:56 Alcohol dependence with withdra wal, [facility] 2022-08-01 11:57 Alcohol dependence with withdra wal, [facility] 2022-08-01 12:11 Alcohol dependence with withdra wal, [facility] 2022-08-01 13:18 Alcohol dependence with withdra wal, [facility] 2022-08-02 08:59 Alcohol dependence with withdra wal, [facility] 2022-08-03 08:39 Alcohol dependence with withdra wal, [facility] 2022-08-03 08:39 Alcohol use, unspecified with w ithdrawal delirium [facility] 2022-08-03 08:39 Alcohol use, unspeci fied with withdrawal, [facility] 2022-08-03 14:23 Alcohol dependence with withdra wal, [facility] 2022-08-03 14:23 Alcohol use, unspecified with w ithdrawal delirium [facility] 2022-08-03 14:23 Alcohol use, unspeci fied with withdrawal, [facility] 2022-08-03 14:26 Alcohol dependence with withdra wal, [facility] 2022-08-03 14:26 Alcohol use, unspecified with w ithdrawal delirium [facility] 2022-08-03 14:26 Alcohol use, unspeci fied with withdrawal, [facility] 2022-08-03 14:43 Alcohol dependence with withdra wal, [facility] 2022-08-03 14:43 Alcohol use, unspecified with w ithdrawal delirium [facility] 2022-08-03 14:43 Alcohol use, unspeci fied with withdrawal, unspecified [facility] 2022-08-06 13:58 Alcohol dependence with withdra wal, unspecified [facility] 2022-08-06 13:58 Alcohol use, unspecified with w ithdrawal delirium [facility] 2022-08-06 13:58 Alcohol use, unspeci fied with withdrawal, unspecified [facility] 2022-08-08 00:00 Alcoholic intoxication [facility] 2022-08-08 00:00 Alcohol withdrawal syndrome [facility] 2022-08-09 00:00 Abnormal urinalysis [facility] 2022-08-09 09:10 Alcohol dependence with withdra wal, unspecified [facility] 2022-08-09 09:10 Alcohol use, unspeci fied with intoxication, [facility] 2022-08-09 09:10 Alcohol use, unspecified with w ithdrawal delirium [facility] 2022-08-09 09:10 Alcohol use, unspeci [facility]ied with withdrawal, [facility] 2022-08-09 09:10 Unspecified abnormal findings i urine [facility] 2022-08-09 09:29 Alcohol dependence with withdra wal, unspecified [facility] 2022-08-09 09:29 Alcohol use, unspeci fied with intoxication, [facility] 2022-08-09 09:29 Alcohol use, unspecified with w ithdrawal delirium [facility] 2022-08-09 09:29 Alcohol use, unspeci fied with withdrawal, [facility] 2022-08-09 09:29 Unspecified abnormal findings i [facility] 2022-08-09 11:05 Alcohol dependence with withdra wal, unspecified [facility] 2022-08-09 11:05 Alcohol use, unspeci fied with intoxication, [facility] 2022-08-09 11:05 Alcohol use, unspecified with w ithdrawal delirium [facility] 2022-08-09 11:05 Alcohol use, unspeci fied with withdrawal, [facility] 2022-08-09 11:05 Unspecified abnormal findings i [facility] 2022-08-09 11:22 Alcohol dependence with [facility]dra wal, [facility] 2022-08-09 11:22 Alcohol use, unspeci fied with intoxication, unspecified [facility] 2022-08-09 11:22 Alcohol use, unspecified with w ithdrawal delirium [facility] 2022-08-09 11:22 Alcohol use, unspeci fied with withdrawal, [facility] 2022-08-09 11:22 Unspecified abnormal findings i [facility] 2022-08-09 12:33 Alcohol dependence with withdra wal, [facility] 2022-08-09 12:33 Alcohol use, unspeci fied with intoxication, [facility] 2022-08-09 12:33 Alcohol use, unspecified with w ithdrawal delirium [facility] 2022-08-09 12:33 Alcohol use, unspeci fied with withdrawal, [facility] 2022-08-09 12:33 Unspecified abnormal findings i [facility] 2022-08-09 17:39 Alcohol dependence with withdra wal, [facility] 2022-08-09 17:39 Alcohol use, unspeci fied with intoxication, [facility] 2022-08-09 17:39 Alcohol use, unspecified with w ithdrawal delirium [facility] 2022-08-09 17:39 Alcohol use, unspeci fied with withdrawal, [facility] 2022-08-09 17:39 Unspecified abnormal findings i [facility] 2022-08-09 18:05 Alcohol dependence with withdra wal, [facility] 2022-08-09 18:05 Alcohol use, unspeci fied with intoxication, [facility] 2022-08-09 18:05 Alcohol use, unspecified with w ithdrawal delirium [facility] 2022-08-09 18:05 Alcohol use, unspeci fied with withdrawal, [facility] 2022-08-09 18:05 Unspecified abnormal findings i [facility] 2022-08-10 08:05 Alcohol dependence with withdra wal, [facility] 2022-08-10 08:05 Alcohol use, unspeci fied with intoxication, [facility] 2022-08-10 08:05 Alcohol use, unspecified with w ithdrawal delirium [facility] 2022-08-10 08:05 Alcohol use, unspeci fied with withdrawal, [facility] 2022-08-10 08:05 Unspecified abnormal findings i n urine [facility] 2022-08-15 12:47 Alcohol dependence with withdra wal, unspecified [facility] 2022-08-15 12:47 Alcohol use, unspeci fied with intoxication, unspecified [facility] 2022-08-15 12:47 Alcohol use, unspecified with w ithdrawal delirium [facility] 2022-08-15 12:47 Alcohol use, unspeci fied with withdrawal, unspecified [facility] 2022-08-15 12:47 Unspecified abnormal findings i n urine [facility] 2022-10-08 [facility]-13 00:00 Insertion of Infusio n Device into Left Basilic Vein, Percutaneous Approach [facility] 2022-08-01 00:00 Computed tomography of head or brain without contrast [facility] Results/Labs test date author facility value unit interpretation Result panel 1 (unknown) (no date) (unknown) [facility] (no value) (units unknown) (unknown) Result panel 2 (unknown) (no date) (unknown) [facility] (no value) (units unknown) (unknown) Result panel 3 (unknown) (no date) (unknown) [facility] (no value) (units unknown) (unknown) Result panel 4 (unknown) (no date) (unknown) [facility] (no value) (units unknown) (unknown) Result panel 5 (unknown) (no date) (unknown) [facility] (no value) (units unknown) (unknown) Result panel 6 (unknown) (no date) (unknown) [facility] (no value) (units unknown) (unknown) Result panel 7 (unknown) (no date) (unknown) [facility] (no value) (units unknown) (unknown) Result panel 8 (unknown) (no date) (unknown) [facility] (no value) (units unknown) (unknown) Result panel 9 (unknown) (no date) (unknown) [facility] (no value) (units unknown) (unknown) Result panel 10 (unknown) (no date) (unknown) [facility] (no value) (units unknown) (unknown) Result panel 11 (unknown) (no date) (unknown) [facility] (no value) (units unknown) (unknown) Result panel 12 (unknown) (no date) (unknown) [facility] (no value) (units unknown) (unknown) Result panel 13 (unknown) (no date) (unknown) [facility] (no value) (units unknown) (unknown) Result panel 14 (unknown) (no date) (unknown) [facility] (no value) (units unknown) (unknown) Result panel 15 (unknown) (no date) (unknown) [facility] (no value) (units unknown) (unknown) Result panel 16 (unknown) (no date) (unknown) [facility] (no value) (units unknown) (unknown) Result panel 17 (unknown) (no date) (unknown) [facility] (no value) (units unknown) (unknown) Result panel 18 (unknown) (no date) (unknown) [facility] (no value) (units unknown) (unknown) Result panel 19 (unknown) (no date) (unknown) [facility] (no value) (units unknown) (unknown) Result panel 20 (unknown) (no date) (unknown) [facility] (no value) (units unknown) (unknown) Result panel 21 (unknown) (no date) (unknown) [facility] (no value) (units unknown) (unknown) Result panel 22 (unknown) (no date) (unknown) [facility] (no value) (units unknown) (unknown) Result panel 23 (unknown) (no date) (unknown) [facility] (no value) (units unknown) (unknown) Result panel 24 (unknown) (no date) (unknown) [facility] (no value) (units unknown) (unknown) Result panel 25 (unknown) (no date) (unknown) [facility] (no value) (units unknown) (unknown) Result panel 26 (unknown) (no date) (unknown) [facility] (no value) (units unknown) (unknown) Result panel 27 (unknown) (no date) (unknown) [facility] (no value) (units unknown) (unknown) Result panel 28 (unknown) (no date) (unknown) [facility] (no value) (units unknown) (unknown) Result panel 29 (unknown) (no date) (unknown) [facility] (no value) (units unknown) (unknown) Result panel 30 (unknown) (no date) (unknown) [facility] (no value) (units unknown) (unknown) Result panel 31 (unknown) (no date) (unknown) [facility] (no value) (units unknown) (unknown) Result panel 32 (unknown) (no date) (unknown) [facility] (no value) (units unknown) (unknown) Result panel 33 (unknown) (no date) (unknown) [facility] (no value) (units unknown) (unknown) Result panel 34 (unknown) (no date) (unknown) [facility] (no value) (units unknown) (unknown) Result panel 35 (unknown) (no date) (unknown) [facility] (no value) (units unknown) (unknown) Result panel 36 (unknown) (no date) (unknown) [facility] (no value) (units unknown) (unknown) Result panel 37 (unknown) (no date) (unknown) [facility] (no value) (units unknown) (unknown) Result panel 38 (unknown) (no date) (unknown) [facility] (no value) (units unknown) (unknown) Result panel 39 (unknown) (no date) (unknown) [facility] (no value) (units unknown) (unknown) Result panel 40 (unknown) (no date) (unknown) [facility] (no value) (units unknown) (unknown) Result panel 41 (unknown) (no date) (unknown) [facility] (no value) (units unknown) (unknown) Result panel 42 (unknown) (no date) (unknown) [facility] (no value) (units unknown) (unknown) Result panel 43 (unknown) (no date) (unknown) [facility] (no value) (units unknown) (unknown) Result panel 44 (unknown) (no date) (unknown) [facility] (no value) (units unknown) (unknown) Result panel 45 (unknown) (no date) (unknown) [facility] (no value) (units unknown) (unknown) Result panel 46 (unknown) (no date) (unknown) [facility] (no value) (units unknown) (unknown) Result panel 47 (unknown) (no date) (unknown) [facility] (no value) (units unknown) (unknown) Result panel 48 (unknown) (no date) (unknown) [facility] (no value) (units unknown) (unknown) Result panel 49 (unknown) (no date) (unknown) [facility] (no value) (units unknown) (unknown) Result panel 50 (unknown) (no date) (unknown) [facility] (no value) (units unknown) (unknown) Result panel 51 (unknown) (no date) (unknown) [facility] (no value) (units unknown) (unknown) Result panel 52 (unknown) (no date) (unknown) [facility] (no value) (units unknown) (unknown) Result panel 53 (unknown) (no date) (unknown) [facility] (no value) (units unknown) (unknown) Result panel 54 (unknown) (no date) (unknown) [facility] (no value) (units unknown) (unknown) Result panel 55 (unknown) (no date) (unknown) [facility] (no value) (units unknown) (unknown) Result panel 56 (unknown) (no date) (unknown) [facility] (no value) (units unknown) (unknown) Result panel 57 (unknown) (no date) (unknown) [facility] (no value) (units unknown) (unknown) Result panel 58 (unknown) (no date) (unknown) [facility] (no value) (units unknown) (unknown) Result panel 59 (unknown) (no date) (unknown) [facility] (no value) (units unknown) (unknown) Result panel 60 (unknown) (no date) (unknown) [facility] (no value) (units unknown) (unknown) Result panel 61 (unknown) (no date) (unknown) [facility] (no value) (units unknown) (unknown) Result panel 62 (unknown) (no date) (unknown) [facility] (no value) (units unknown) (unknown) Result panel 63 (unknown) (no date) (unknown) [facility] (no value) (units unknown) (unknown) Result panel 64 (unknown) (no date) (unknown) [facility] (no value) (units unknown) (unknown) Result panel 65 (unknown) (no date) (unknown) [facility] (no value) (units unknown) (unknown) Result panel 66 (unknown) (no date) (unknown) [facility] (no value) (units unknown) (unknown) Result panel 67 (unknown) (no date) (unknown) [facility] (no value) (units unknown) (unknown) Result panel 68 (unknown) (no date) (unknown) [facility] (no value) (units unknown) (unknown) Result panel 69 (unknown) (no date) (unknown) [facility] (no value) (units unknown) (unknown) Result panel 70 (unknown) (no date) (unknown) [facility] (no value) (units unknown) (unknown) Result panel 71 (unknown) (no date) (unknown) [facility] (no value) (units unknown) (unknown) Result panel 72 (unknown) (no date) (unknown) [facility] (no value) (units unknown) (unknown) Result panel 73 (unknown) (no date) (unknown) [facility] (no value) (units unknown) (unknown) Result panel 74 (unknown) (no date) (unknown) [facility] (no value) (units unknown) (unknown) Result panel 75 (unknown) (no date) (unknown) [facility] (no value) (units unknown) (unknown) Result panel 76 (unknown) (no date) (unknown) [facility] (no value) (units unknown) (unknown) Result panel 77 (unknown) (no date) (unknown) [facility] (no value) (units unknown) (unknown) Result panel 78 (unknown) (no date) (unknown) [facility] (no value) (units unknown) (unknown) Result panel 79 (unknown) (no date) (unknown) [facility] (no value) (units unknown) (unknown) Result panel 80 (unknown) (no date) (unknown) [facility] (no value) (units unknown) (unknown) Result panel 81 (unknown) (no date) (unknown) [facility] (no value) (units unknown) (unknown) Result panel 82 (unknown) (no date) (unknown) [facility] (no value) (units unknown) (unknown) Result panel 83 (unknown) (no date) (unknown) [facility] (no value) (units unknown) (unknown) Result panel 84 (unknown) (no date) (unknown) [facility] (no value) (units unknown) (unknown) Result panel 85 (unknown) (no date) (unknown) [facility] (no value) (units unknown) (unknown) Result panel 86 (unknown) (no date) (unknown) [facility] (no value) (units unknown) (unknown) Result panel 87 (unknown) (no date) (unknown) [facility] (no value) (units unknown) (unknown) Result panel 88 (unknown) (no date) (unknown) [facility] (no value) (units unknown) (unknown) Result panel 89 (unknown) (no date) (unknown) [facility] (no value) (units unknown) (unknown) Result panel 90 (unknown) (no date) (unknown) [facility] (no value) (units unknown) (unknown) Result panel 91 (unknown) (no date) (unknown) [facility] (no value) (units unknown) (unknown) Result panel 92 (unknown) (no date) (unknown) [facility] (no value) (units unknown) (unknown) Result panel 93 (unknown) (no date) (unknown) [facility] (no value) (units unknown) (unknown) Result panel 94 (unknown) (no date) (unknown) [facility] (no value) (units unknown) (unknown) Result panel 95 (unknown) (no date) (unknown) [facility] (no value) (units unknown) (unknown) Result panel 96 (unknown) (no date) (unknown) [facility] (no value) (units unknown) (unknown) Result panel 97 (unknown) (no date) (unknown) [facility] (no value) (units unknown) (unknown) Result panel 98 (unknown) (no date) (unknown) [facility] (no value) (units unknown) (unknown) Result panel 99 (unknown) (no date) (unknown) [facility] (no value) (units unknown) (unknown) Result panel 100 (unknown) (no date) (unknown) [facility] (no value) (units unknown) (unknown) Result panel 101 (unknown) (no date) (unknown) [facility] (no value) (units unknown) (unknown) Result panel 102 (unknown) (no date) (unknown) [facility] (no value) (units unknown) (unknown) Result panel 103 (unknown) (no date) (unknown) [facility] (no value) (units unknown) (unknown) Result panel 104 (unknown) (no date) (unknown) [facility] (no value) (units unknown) (unknown) Result panel 105 (unknown) (no date) (unknown) [facility] (no value) (units unknown) (unknown) Result panel 106 (unknown) (no date) (unknown) [facility] (no value) (units unknown) (unknown) Result panel 107 (unknown) (no date) (unknown) [facility] (no value) (units unknown) (unknown) Result panel 108 (unknown) (no date) (unknown) [facility] (no value) (units unknown) (unknown) Result panel 109 (unknown) (no date) (unknown) [facility] (no value) (units unknown) (unknown) Result panel 110 (unknown) (no date) (unknown) [facility] (no value) (units unknown) (unknown) Result panel 111 (unknown) (no date) (unknown) [facility] (no value) (units unknown) (unknown) Result panel 112 (unknown) (no date) (unknown) [facility] (no value) (units unknown) (unknown) Result panel 113 (unknown) (no date) (unknown) [facility] (no value) (units unknown) (unknown) Result panel 114 (unknown) (no date) (unknown) [facility] (no value) (units unknown) (unknown) Result panel 115 (unknown) (no date) (unknown) [facility] (no value) (units unknown) (unknown) Result panel 116 (unknown) (no date) (unknown) [facility] (no value) (units unknown) (unknown) Result panel 117 (unknown) (no date) (unknown) [facility] (no value) (units unknown) (unknown) Result panel 118 (unknown) (no date) (unknown) [facility] (no value) (units unknown) (unknown) Result panel 119 (unknown) (no date) (unknown) [facility] (no value) (units unknown) (unknown) Result panel 120 (unknown) (no date) (unknown) [facility] (no value) (units unknown) (unknown) Result panel 121 (unknown) (no date) (unknown) [facility] (no value) (units unknown) (unknown) Result panel 122 (unknown) (no date) (unknown) [facility] (no value) (units unknown) (unknown) Result panel 123 (unknown) (no date) (unknown) [facility] (no value) (units unknown) (unknown) Result panel 124 (unknown) (no date) (unknown) [facility] (no value) (units unknown) (unknown) Result panel 125 (unknown) (no date) (unknown) [facility] (no value) (units unknown) (unknown) Result panel 126 (unknown) (no date) (unknown) [facility] (no value) (units unknown) (unknown) Result panel 127 (unknown) (no date) (unknown) [facility] (no value) (units unknown) (unknown) Result panel 128 (unknown) (no date) (unknown) [facility] (no value) (units unknown) (unknown) Result panel 129 (unknown) (no date) (unknown) [facility] (no value) (units unknown) (unknown) Result panel 130 (unknown) (no date) (unknown) [facility] (no value) (units unknown) (unknown) Result panel 131 (unknown) (no date) (unknown) [facility] (no value) (units unknown) (unknown) Result panel 132 (unknown) (no date) (unknown) [facility] (no value) (units unknown) (unknown) Result panel 133 (unknown) (no date) (unknown) [facility] (no value) (units unknown) (unknown) Result panel 134 (unknown) (no date) (unknown) [facility] (no value) (units unknown) (unknown) Result panel 135 (unknown) (no date) (unknown) [facility] (no value) (units unknown) (unknown) Result panel 136 (unknown) (no date) (unknown) [facility] (no value) (units unknown) (unknown) Result panel 137 (unknown) (no date) (unknown) [facility] (no value) (units unknown) (unknown) Result panel 138 (unknown) (no date) (unknown) [facility] (no value) (units unknown) (unknown) Result panel 139 (unknown) (no date) (unknown) [facility] (no value) (units unknown) (unknown) Result panel 140 (unknown) (no date) (unknown) [facility] (no value) (units unknown) (unknown) Result panel 141 (unknown) (no date) (unknown) [facility] (no value) (units unknown) (unknown) Result panel 142 (unknown) (no date) (unknown) [facility] (no value) (units unknown) (unknown) Result panel 143 (unknown) (no date) (unknown) [facility] (no value) (units unknown) (unknown) Result panel 144 (unknown) (no date) (unknown) [facility] (no value) (units unknown) (unknown) Result panel 145 (unknown) (no date) (unknown) [facility] (no value) (units unknown) (unknown) Result panel 146 (unknown) (no date) (unknown) [facility] (no value) (units unknown) (unknown) Result panel 147 (unknown) (no date) (unknown) [facility] (no value) (units unknown) (unknown) Result panel 148 (unknown) (no date) (unknown) [facility] (no value) (units unknown) (unknown) Result panel 149 (unknown) (no date) (unknown) [facility] (no value) (units unknown) (unknown) Result panel 150 (unknown) (no date) (unknown) [facility] (no value) (units unknown) (unknown) Result panel 151 (unknown) (no date) (unknown) [facility] (no value) (units unknown) (unknown) Result panel 152 (unknown) (no date) (unknown) [facility] (no value) (units unknown) (unknown) Result panel 153 (unknown) (no date) (unknown) [facility] (no value) (units unknown) (unknown) Result panel 154 (unknown) (no date) (unknown) [facility] (no value) (units unknown) (unknown) Result panel 155 (unknown) (no date) (unknown) [facility] (no value) (units unknown) (unknown) Result panel 156 (unknown) (no date) (unknown) [facility] (no value) (units unknown) (unknown) Result panel 157 (unknown) (no date) (unknown) [facility] (no value) (units unknown) (unknown) Result panel 158 (unknown) (no date) (unknown) [facility] (no value) (units unknown) (unknown) Result panel 159 (unknown) (no date) (unknown) [facility] (no value) (units unknown) (unknown) Result panel 160 (unknown) (no date) (unknown) [facility] (no value) (units unknown) (unknown) Result panel 161 (unknown) (no date) (unknown) [facility] (no value) (units unknown) (unknown) Result panel 162 (unknown) (no date) (unknown) [facility] (no value) (units unknown) (unknown) Result panel 163 (unknown) (no date) (unknown) [facility] (no value) (units unknown) (unknown) Result panel 164 (unknown) (no date) (unknown) [facility] (no value) (units unknown) (unknown) Result panel 165 (unknown) (no date) (unknown) [facility] (no value) (units unknown) (unknown) Result panel 166 (unknown) (no date) (unknown) [facility] (no value) (units unknown) (unknown) Result panel 167 (unknown) (no date) (unknown) [facility] (no value) (units unknown) (unknown) Result panel 168 (unknown) (no date) (unknown) [facility] (no value) (units unknown) (unknown) Result panel 169 (unknown) (no date) (unknown) [facility] (no value) (units unknown) (unknown) Result panel 170 (unknown) (no date) (unknown) [facility] (no value) (units unknown) (unknown) Result panel 171 (unknown) (no date) (unknown) [facility] (no value) (units unknown) (unknown) Result panel 172 (unknown) (no date) (unknown) [facility] (no value) (units unknown) (unknown) Result panel 173 (unknown) (no date) (unknown) [facility] (no value) (units unknown) (unknown) Result panel 174 (unknown) (no date) (unknown) [facility] (no value) (units unknown) (unknown) Result panel 175 (unknown) (no date) (unknown) [facility] (no value) (units unknown) (unknown) Result panel 176 (unknown) (no date) (unknown) [facility] (no value) (units unknown) (unknown) Result panel 177 (unknown) (no date) (unknown) [facility] (no value) (units unknown) (unknown) Result panel 178 (unknown) (no date) (unknown) [facility] (no value) (units unknown) (unknown) Result panel 179 (unknown) (no date) (unknown) [facility] (no value) (units unknown) (unknown) Result panel 180 (unknown) (no date) (unknown) [facility] (no value) (units unknown) (unknown) Result panel 181 (unknown) (no date) (unknown) [facility] (no value) (units unknown) (unknown) Result panel 182 (unknown) (no date) (unknown) [facility] (no value) (units unknown) (unknown) Result panel 183 (unknown) (no date) (unknown) [facility] (no value) (units unknown) (unknown) Result panel 184 (unknown) (no date) (unknown) [facility] (no value) (units unknown) (unknown) Result panel 185 (unknown) (no date) (unknown) [facility] (no value) (units unknown) (unknown) Result panel 186 (unknown) (no date) (unknown) [facility] (no value) (units unknown) (unknown) Result panel 187 (unknown) (no date) (unknown) [facility] (no value) (units unknown) (unknown) Result panel 188 (unknown) (no date) (unknown) [facility] (no value) (units unknown) (unknown) Result panel 189 (unknown) (no date) (unknown) [facility] (no value) (units unknown) (unknown) Result panel 190 (unknown) (no date) (unknown) [facility] (no value) (units unknown) (unknown) Result panel 191 (unknown) (no date) (unknown) [facility] (no value) (units unknown) (unknown) Result panel 192 (unknown) (no date) (unknown) [facility] (no value) (units unknown) (unknown) Result panel 193 (unknown) (no date) (unknown) [facility] (no value) (units unknown) (unknown) Result panel 194 (unknown) (no date) (unknown) [facility] (no value) (units unknown) (unknown) Result panel 195 (unknown) (no date) (unknown) [facility] (no value) (units unknown) (unknown) Result panel 196 (unknown) (no date) (unknown) [facility] (no value) (units unknown) (unknown) Result panel 197 (unknown) (no date) (unknown) [facility] (no value) (units unknown) (unknown) Result panel 198 (unknown) (no date) (unknown) [facility] (no value) (units unknown) (unknown) Result panel 199 (unknown) (no date) (unknown) [facility] (no value) (units unknown) (unknown) Result panel 200 (unknown) (no date) (unknown) [facility] (no value) (units unknown) (unknown) Result panel 201 (unknown) (no date) (unknown) [facility] (no value) (units unknown) (unknown) Result panel 202 (unknown) (no date) (unknown) [facility] (no value) (units unknown) (unknown) Result panel 203 (unknown) (no date) (unknown) [facility] (no value) (units unknown) (unknown) Result panel 204 (unknown) (no date) (unknown) [facility] (no value) (units unknown) (unknown) Result panel 205 (unknown) (no date) (unknown) [facility] (no value) (units unknown) (unknown) Result panel 206 (unknown) (no date) (unknown) [facility] (no value) (units unknown) (unknown) Result panel 207 (unknown) (no date) (unknown) [facility] (no value) (units unknown) (unknown) Result panel 208 (unknown) (no date) (unknown) [facility] (no value) (units unknown) (unknown) Result panel 209 (unknown) (no date) (unknown) [facility] (no value) (units unknown) (unknown) Result panel 210 (unknown) (no date) (unknown) [facility] (no value) (units unknown) (unknown) Result panel 211 (unknown) (no date) (unknown) [facility] (no value) (units unknown) (unknown) Result panel 212 (unknown) (no date) (unknown) [facility] (no value) (units unknown) (unknown) Result panel 213 (unknown) (no date) (unknown) [facility] (no value) (units unknown) (unknown) Result panel 214 (unknown) (no date) (unknown) [facility] (no value) (units unknown) (unknown) Result panel 215 (unknown) (no date) (unknown) [facility] (no value) (units unknown) (unknown) Result panel 216 (unknown) (no date) (unknown) [facility] (no value) (units unknown) (unknown) Result panel 217 (unknown) (no date) (unknown) [facility] (no value) (units unknown) (unknown) Result panel 218 (unknown) (no date) (unknown) [facility] (no value) (units unknown) (unknown) Result panel 219 (unknown) (no date) (unknown) [facility] (no value) (units unknown) (unknown) Result panel 220 (unknown) (no date) (unknown) [facility] (no value) (units unknown) (unknown) Result panel 221 (unknown) (no date) (unknown) [facility] (no value) (units unknown) (unknown) Result panel 222 (unknown) (no date) (unknown) [facility] (no value) (units unknown) (unknown) Result panel 223 (unknown) (no date) (unknown) [facility] (no value) (units unknown) (unknown) Result panel 224 (unknown) (no date) (unknown) [facility] (no value) (units unknown) (unknown) Result panel 225 (unknown) (no date) (unknown) [facility] (no value) (units unknown) (unknown) Result panel 226 (unknown) (no date) (unknown) [facility] (no value) (units unknown) (unknown) Result panel 227 (unknown) (no date) (unknown) [facility] (no value) (units unknown) (unknown) Result panel 228 (unknown) (no date) (unknown) [facility] (no value) (units unknown) (unknown) Result panel 229 (unknown) (no date) (unknown) [facility] (no value) (units unknown) (unknown) Result panel 230 (unknown) (no date) (unknown) [facility] (no value) (units unknown) (unknown) Result panel 231 (unknown) (no date) (unknown) [facility] (no value) (units unknown) (unknown) Result panel 232 (unknown) (no date) (unknown) [facility] (no value) (units unknown) (unknown) Result panel 233 (unknown) (no date) (unknown) [facility] (no value) (units unknown) (unknown) Result panel 234 (unknown) (no date) (unknown) [facility] (no value) (units unknown) (unknown) Result panel 235 (unknown) (no date) (unknown) [facility] (no value) (units unknown) (unknown) Result panel 236 (unknown) (no date) (unknown) [facility] (no value) (units unknown) (unknown) Result panel 237 (unknown) (no date) (unknown) [facility] (no value) (units unknown) (unknown) Result panel 238 (unknown) (no date) (unknown) [facility] (no value) (units unknown) (unknown) Result panel 239 (unknown) (no date) (unknown) [facility] (no value) (units unknown) (unknown) Result panel 240 (unknown) (no date) (unknown) [facility] (no value) (units unknown) (unknown) Result panel 241 (unknown) (no date) (unknown) [facility] (no value) (units unknown) (unknown) Result panel 242 (unknown) (no date) (unknown) [facility] (no value) (units unknown) (unknown) Result panel 243 (unknown) (no date) (unknown) [facility] (no value) (units unknown) (unknown) Result panel 244 (unknown) (no date) (unknown) [facility] (no value) (units unknown) (unknown) Result panel 245 (unknown) (no date) (unknown) [facility] (no value) (units unknown) (unknown) Result panel 246 (unknown) (no date) (unknown) [facility] (no value) (units unknown) (unknown) Result panel 247 (unknown) (no date) (unknown) [facility] (no value) (units unknown) (unknown) Result panel 248 (unknown) (no date) (unknown) [facility] (no value) (units unknown) (unknown) Result panel 249 (unknown) (no date) (unknown) [facility] (no value) (units unknown) (unknown) Result panel 250 (unknown) (no date) (unknown) [facility] (no value) (units unknown) (unknown) Result panel 251 (unknown) (no date) (unknown) [facility] (no value) (units unknown) (unknown) Result panel 252 (unknown) (no date) (unknown) [facility] (no value) (units unknown) (unknown) Result panel 253 (unknown) (no date) (unknown) [facility] (no value) (units unknown) (unknown) Result panel 254 (unknown) (no date) (unknown) [facility] (no value) (units unknown) (unknown) Result panel 255 (unknown) (no date) (unknown) [facility] (no value) (units unknown) (unknown) Result panel 256 (unknown) (no date) (unknown) [facility] (no value) (units unknown) (unknown) Result panel 257 (unknown) (no date) (unknown) [facility] (no value) (units unknown) (unknown) Result panel 258 (unknown) (no date) (unknown) [facility] (no value) (units unknown) (unknown) Result panel 259 (unknown) (no date) (unknown) [facility] (no value) (units unknown) (unknown) Result panel 260 (unknown) (no date) (unknown) [facility] (no value) (units unknown) (unknown) Result panel 261 (unknown) (no date) (unknown) [facility] (no value) (units unknown) (unknown) Result panel 262 (unknown) (no date) (unknown) [facility] (no value) (units unknown) (unknown) Result panel 263 (unknown) (no date) (unknown) [facility] (no value) (units unknown) (unknown) Result panel 264 (unknown) (no date) (unknown) [facility] (no value) (units unknown) (unknown) Result panel 265 (unknown) (no date) (unknown) [facility] (no value) (units unknown) (unknown) Result panel 266 (unknown) (no date) (unknown) [facility] (no value) (units unknown) (unknown) Result panel 267 (unknown) (no date) (unknown) [facility] (no value) (units unknown) (unknown) Result panel 268 (unknown) (no date) (unknown) [facility] (no value) (units unknown) (unknown) Result panel 269 (unknown) (no date) (unknown) [facility] (no value) (units unknown) (unknown) Result panel 270 (unknown) (no date) (unknown) [facility] (no value) (units unknown) (unknown) Result panel 271 (unknown) (no date) (unknown) [facility] (no value) (units unknown) (unknown) Result panel 272 (unknown) (no date) (unknown) [facility] (no value) (units unknown) (unknown) Result panel 273 (unknown) (no date) (unknown) [facility] (no value) (units unknown) (unknown) Result panel 274 (unknown) (no date) (unknown) [facility] (no value) (units unknown) (unknown) Result panel 275 (unknown) (no date) (unknown) [facility] (no value) (units unknown) (unknown) Result panel 276 (unknown) (no date) (unknown) [facility] (no value) (units unknown) (unknown) Result panel 277 (unknown) (no date) (unknown) [facility] (no value) (units unknown) (unknown) Result panel 278 (unknown) (no date) (unknown) [facility] (no value) (units unknown) (unknown) Result panel 279 (unknown) (no date) (unknown) [facility] (no value) (units unknown) (unknown) Result panel 280 (unknown) (no date) (unknown) [facility] (no value) (units unknown) (unknown) Result panel 281 (unknown) (no date) (unknown) [facility] (no value) (units unknown) (unknown) Result panel 282 (unknown) (no date) (unknown) [facility] (no value) (units unknown) (unknown) Result panel 283 (unknown) (no date) (unknown) [facility] (no value) (units unknown) (unknown) Result panel 284 (unknown) (no date) (unknown) [facility] (no value) (units unknown) (unknown) Result panel 285 (unknown) (no date) (unknown) [facility] (no value) (units unknown) (unknown) Result panel 286 (unknown) (no date) (unknown) [facility] (no value) (units unknown) (unknown) Result panel 287 (unknown) (no date) (unknown) [facility] (no value) (units unknown) (unknown) Result panel 288 (unknown) (no date) (unknown) [facility] (no value) (units unknown) (unknown) Result panel 289 (unknown) (no date) (unknown) [facility] (no value) (units unknown) (unknown) Result panel 290 (unknown) (no date) (unknown) [facility] (no value) (units unknown) (unknown) Result panel 291 (unknown) (no date) (unknown) [facility] (no value) (units unknown) (unknown) Result panel 292 (unknown) (no date) (unknown) [facility] (no value) (units unknown) (unknown) Result panel 293 (unknown) (no date) (unknown) [facility] (no value) (units unknown) (unknown) Result panel 294 (unknown) (no date) (unknown) [facility] (no value) (units unknown) (unknown) Result panel 295 (unknown) (no date) (unknown) [facility] (no value) (units unknown) (unknown) Result panel 296 (unknown) (no date) (unknown) [facility] (no value) (units unknown) (unknown) Result panel 297 (unknown) (no date) (unknown) [facility] (no value) (units unknown) (unknown) Result panel 298 (unknown) (no date) (unknown) [facility] (no value) (units unknown) (unknown) Result panel 299 (unknown) (no date) (unknown) [facility] (no value) (units unknown) (unknown) Result panel 300 (unknown) (no date) (unknown) [facility] (no value) (units unknown) (unknown) Result panel 301 (unknown) (no date) (unknown) [facility] (no value) (units unknown) (unknown) Result panel 302 (unknown) (no date) (unknown) [facility] (no value) (units unknown) (unknown) Result panel 303 (unknown) (no date) (unknown) [facility] (no value) (units unknown) (unknown) Result panel 304 (unknown) (no date) (unknown) [facility] (no value) (units unknown) (unknown) Result panel 305 (unknown) (no date) (unknown) [facility] (no value) (units unknown) (unknown) Result panel 306 (unknown) (no date) (unknown) [facility] (no value) (units unknown) (unknown) Result panel 307 (unknown) (no date) (unknown) [facility] (no value) (units unknown) (unknown) Result panel 308 (unknown) (no date) (unknown) [facility] (no value) (units unknown) (unknown) Result panel 309 (unknown) (no date) (unknown) [facility] (no value) (units unknown) (unknown) Result panel 310 (unknown) (no date) (unknown) [facility] (no value) (units unknown) (unknown) Result panel 311 (unknown) (no date) (unknown) [facility] (no value) (units unknown) (unknown) Result panel 312 (unknown) (no date) (unknown) [facility] (no value) (units unknown) (unknown) Result panel 313 (unknown) (no date) (unknown) [facility] (no value) (units unknown) (unknown) Result panel 314 (unknown) (no date) (unknown) [facility] (no value) (units unknown) (unknown) Result panel 315 (unknown) (no date) (unknown) [facility] (no value) (units unknown) (unknown) Result panel 316 (unknown) (no date) (unknown) [facility] (no value) (units unknown) (unknown) Result panel 317 (unknown) (no date) (unknown) [facility] (no value) (units unknown) (unknown) Result panel 318 (unknown) (no date) (unknown) [facility] (no value) (units unknown) (unknown) Result panel 319 (unknown) (no date) (unknown) [facility] (no value) (units unknown) (unknown) Result panel 320 (unknown) (no date) (unknown) [facility] (no value) (units unknown) (unknown) Result panel 321 (unknown) (no date) (unknown) [facility] (no value) (units unknown) (unknown) Result panel 322 (unknown) (no date) (unknown) [facility] (no value) (units unknown) (unknown) Result panel 323 (unknown) (no date) (unknown) [facility] (no value) (units unknown) (unknown) Result panel 324 (unknown) (no date) (unknown) [facility] (no value) (units unknown) (unknown) Result panel 325 (unknown) (no date) (unknown) [facility] (no value) (units unknown) (unknown) Result panel 326 (unknown) (no date) (unknown) [facility] (no value) (units unknown) (unknown) Result panel 327 (unknown) (no date) (unknown) [facility] (no value) (units unknown) (unknown) Result panel 328 (unknown) (no date) (unknown) [facility] (no value) (units unknown) (unknown) Result panel 329 (unknown) (no date) (unknown) [facility] (no value) (units unknown) (unknown) Result panel 330 (unknown) (no date) (unknown) [facility] (no value) (units unknown) (unknown) Result panel 331 (unknown) (no date) (unknown) [facility] (no value) (units unknown) (unknown) Result panel 332 (unknown) (no date) (unknown) [facility] (no value) (units unknown) (unknown) Result panel 333 (unknown) (no date) (unknown) [facility] (no value) (units unknown) (unknown) Result panel 334 (unknown) (no date) (unknown) [facility] (no value) (units unknown) (unknown) Result panel 335 (unknown) (no date) (unknown) [facility] (no value) (units unknown) (unknown) Result panel 336 (unknown) (no date) (unknown) [facility] (no value) (units unknown) (unknown) Result panel 337 (unknown) (no date) (unknown) [facility] (no value) (units unknown) (unknown) Result panel 338 (unknown) (no date) (unknown) [facility] (no value) (units unknown) (unknown) Result panel 339 (unknown) (no date) (unknown) [facility] (no value) (units unknown) (unknown) Result panel 340 (unknown) (no date) (unknown) [facility] (no value) (units unknown) (unknown) Result panel 341 (unknown) (no date) (unknown) [facility] (no value) (units unknown) (unknown) Result panel 342 (unknown) (no date) (unknown) [facility] (no value) (units unknown) (unknown) Result panel 343 (unknown) (no date) (unknown) [facility] (no value) (units unknown) (unknown) Result panel 344 (unknown) (no date) (unknown) [facility] (no value) (units unknown) (unknown) Result panel 345 (unknown) (no date) (unknown) [facility] (no value) (units unknown) (unknown) Result panel 346 (unknown) (no date) (unknown) [facility] (no value) (units unknown) (unknown) Result panel 347 (unknown) (no date) (unknown) [facility] (no value) (units unknown) (unknown) Result panel 348 (unknown) (no date) (unknown) [facility] (no value) (units unknown) (unknown) Result panel 349 (unknown) (no date) (unknown) [facility] (no value) (units unknown) (unknown) Result panel 350 (unknown) (no date) (unknown) [facility] (no value) (units unknown) (unknown) Result panel 351 (unknown) (no date) (unknown) [facility] (no value) (units unknown) (unknown) Result panel 352 (unknown) (no date) (unknown) [facility] (no value) (units unknown) (unknown) Result panel 353 (unknown) (no date) (unknown) [facility] (no value) (units unknown) (unknown) Result panel 354 (unknown) (no date) (unknown) [facility] (no value) (units unknown) (unknown) Result panel 355 (unknown) (no date) (unknown) [facility] (no value) (units unknown) (unknown) Result panel 356 (unknown) (no date) (unknown) [facility] (no value) (units unknown) (unknown) Result panel 357 (unknown) (no date) (unknown) [facility] (no value) (units unknown) (unknown) Result panel 358 (unknown) (no date) (unknown) [facility] (no value) (units unknown) (unknown) Result panel 359 (unknown) (no date) (unknown) [facility] (no value) (units unknown) (unknown) Result panel 360 (unknown) (no date) (unknown) [facility] (no value) (units unknown) (unknown) Result panel 361 (unknown) (no date) (unknown) [facility] (no value) (units unknown) (unknown) Result panel 362 (unknown) (no date) (unknown) [facility] (no value) (units unknown) (unknown) Result panel 363 (unknown) (no date) (unknown) [facility] (no value) (units unknown) (unknown) Result panel 364 (unknown) (no date) (unknown) [facility] (no value) (units unknown) (unknown) Result panel 365 (unknown) (no date) (unknown) [facility] (no value) (units unknown) (unknown) Result panel 366 (unknown) (no date) (unknown) [facility] (no value) (units unknown) (unknown) Result panel 367 (unknown) (no date) (unknown) [facility] (no value) (units unknown) (unknown) Result panel 368 (unknown) (no date) (unknown) [facility] (no value) (units unknown) (unknown) Result panel 369 (unknown) (no date) (unknown) [facility] (no value) (units unknown) (unknown) Result panel 370 (unknown) (no date) (unknown) [facility] (no value) (units unknown) (unknown) Result panel 371 (unknown) (no date) (unknown) [facility] (no value) (units unknown) (unknown) Result panel 372 (unknown) (no date) (unknown) [facility] (no value) (units unknown) (unknown) Result panel 373 (unknown) (no date) (unknown) [facility] (no value) (units unknown) (unknown) Result panel 374 (unknown) (no date) (unknown) [facility] (no value) (units unknown) (unknown) Result panel 375 (unknown) (no date) (unknown) [facility] (no value) (units unknown) (unknown) Result panel 376 (unknown) (no date) (unknown) [facility] (no value) (units unknown) (unknown) Result panel 377 (unknown) (no date) (unknown) [facility] (no value) (units unknown) (unknown) Result panel 378 (unknown) (no date) (unknown) [facility] (no value) (units unknown) (unknown) Result panel 379 (unknown) (no date) (unknown) [facility] (no value) (units unknown) (unknown) Result panel 380 (unknown) (no date) (unknown) [facility] (no value) (units unknown) (unknown) Result panel 381 (unknown) (no date) (unknown) [facility] (no value) (units unknown) (unknown) Result panel 382 (unknown) (no date) (unknown) [facility] (no value) (units unknown) (unknown) Result panel 383 (unknown) (no date) (unknown) [facility] (no value) (units unknown) (unknown) Result panel 384 (unknown) (no date) (unknown) [facility] (no value) (units unknown) (unknown) Result panel 385 (unknown) (no date) (unknown) [facility] (no value) (units unknown) (unknown) Result panel 386 (unknown) (no date) (unknown) [facility] (no value) (units unknown) (unknown) Result panel 387 (unknown) (no date) (unknown) [facility] (no value) (units unknown) (unknown) Result panel 388 (unknown) (no date) (unknown) [facility] (no value) (units unknown) (unknown) Result panel 389 (unknown) (no date) (unknown) [facility] (no value) (units unknown) (unknown) Result panel 390 (unknown) (no date) (unknown) [facility] (no value) (units unknown) (unknown) Result panel 391 (unknown) (no date) (unknown) [facility] (no value) (units unknown) (unknown) Result panel 392 (unknown) (no date) (unknown) [facility] (no value) (units unknown) (unknown) Result panel 393 (unknown) (no date) (unknown) [facility] (no value) (units unknown) (unknown) Result panel 394 (unknown) (no date) (unknown) [facility] (no value) (units unknown) (unknown) Result panel 395 (unknown) (no date) (unknown) [facility] (no value) (units unknown) (unknown) Result panel 396 (unknown) (no date) (unknown) [facility] (no value) (units unknown) (unknown) Result panel 397 (unknown) (no date) (unknown) [facility] (no value) (units unknown) (unknown) Result panel 398 (unknown) (no date) (unknown) [facility] (no value) (units unknown) (unknown) Result panel 399 (unknown) (no date) (unknown) [facility] (no value) (units unknown) (unknown) Result panel 400 (unknown) (no date) (unknown) [facility] (no value) (units unknown) (unknown) Result panel 401 (unknown) (no date) (unknown) [facility] (no value) (units unknown) (unknown) Result panel 402 (unknown) (no date) (unknown) [facility] (no value) (units unknown) (unknown) Result panel 403 (unknown) (no date) (unknown) [facility] (no value) (units unknown) (unknown) Result panel 404 (unknown) (no date) (unknown) [facility] (no value) (units unknown) (unknown) Result panel 405 (unknown) (no date) (unknown) [facility] (no value) (units unknown) (unknown) Result panel 406 (unknown) (no date) (unknown) [facility] (no value) (units unknown) (unknown) Result panel 407 (unknown) (no date) (unknown) [facility] (no value) (units unknown) (unknown) Result panel 408 (unknown) (no date) (unknown) [facility] (no value) (units unknown) (unknown) Result panel 409 (unknown) (no date) (unknown) [facility] (no value) (units unknown) (unknown) Result panel 410 (unknown) (no date) (unknown) [facility] (no value) (units unknown) (unknown) Result panel 411 (unknown) (no date) (unknown) [facility] (no value) (units unknown) (unknown) Result panel 412 (unknown) (no date) (unknown) [facility] (no value) (units unknown) (unknown) Result panel 413 (unknown) (no date) (unknown) [facility] (no value) (units unknown) (unknown) Result panel 414 (unknown) (no date) (unknown) [facility] (no value) (units unknown) (unknown) Result panel 415 (unknown) (no date) (unknown) [facility] (no value) (units unknown) (unknown) Result panel 416 (unknown) (no date) (unknown) [facility] (no value) (units unknown) (unknown) Result panel 417 (unknown) (no date) (unknown) [facility] (no value) (units unknown) (unknown) Result panel 418 (unknown) (no date) (unknown) [facility] (no value) (units unknown) (unknown) Result panel 419 (unknown) (no date) (unknown) [facility] (no value) (units unknown) (unknown) Result panel 420 (unknown) (no date) (unknown) [facility] (no value) (units unknown) (unknown) Result panel 421 (unknown) (no date) (unknown) [facility] (no value) (units unknown) (unknown) Result panel 422 (unknown) (no date) (unknown) [facility] (no value) (units unknown) (unknown) Result panel 423 (unknown) (no date) (unknown) [facility] (no value) (units unknown) (unknown) Result panel 424 (unknown) (no date) (unknown) [facility] (no value) (units unknown) (unknown) Result panel 425 (unknown) (no date) (unknown) [facility] (no value) (units unknown) (unknown) Result panel 426 (unknown) (no date) (unknown) [facility] (no value) (units unknown) (unknown) Result panel 427 (unknown) (no date) (unknown) [facility] (no value) (units unknown) (unknown) Result panel 428 (unknown) (no date) (unknown) [facility] (no value) (units unknown) (unknown) Result panel 429 (unknown) (no date) (unknown) [facility] (no value) (units unknown) (unknown) Result panel 430 (unknown) (no date) (unknown) [facility] (no value) (units unknown) (unknown) Result panel 431 (unknown) (no date) (unknown) [facility] (no value) (units unknown) (unknown) Result panel 432 (unknown) (no date) (unknown) [facility] (no value) (units unknown) (unknown) Result panel 433 (unknown) (no date) (unknown) [facility] (no value) (units unknown) (unknown) Result panel 434 (unknown) (no date) (unknown) [facility] (no value) (units unknown) (unknown) Result panel 435 (unknown) (no date) (unknown) [facility] (no value) (units unknown) (unknown) Result panel 436 (unknown) (no date) (unknown) [facility] (no value) (units unknown) (unknown) Result panel 437 (unknown) (no date) (unknown) [facility] (no value) (units unknown) (unknown) Result panel 438 (unknown) (no date) (unknown) [facility] (no value) (units unknown) (unknown) Result panel 439 (unknown) (no date) (unknown) [facility] (no value) (units unknown) (unknown) Result panel 440 (unknown) (no date) (unknown) [facility] (no value) (units unknown) (unknown) Result panel 441 (unknown) (no date) (unknown) [facility] (no value) (units unknown) (unknown) Result panel 442 (unknown) (no date) (unknown) [facility] (no value) (units unknown) (unknown) Result panel 443 (unknown) (no date) (unknown) [facility] (no value) (units unknown) (unknown) Result panel 444 (unknown) (no date) (unknown) [facility] (no value) (units unknown) (unknown) Result panel 445 (unknown) (no date) (unknown) [facility] (no value) (units unknown) (unknown) Result panel 446 (unknown) (no date) (unknown) [facility] (no value) (units unknown) (unknown) Result panel 447 (unknown) (no date) (unknown) [facility] (no value) (units unknown) (unknown) Result panel 448 (unknown) (no date) (unknown) [facility] (no value) (units unknown) (unknown) Result panel 449 (unknown) (no date) (unknown) [facility] (no value) (units unknown) (unknown) Result panel 450 (unknown) (no date) (unknown) [facility] (no value) (units unknown) (unknown) Result panel 451 (unknown) (no date) (unknown) [facility] (no value) (units unknown) (unknown) Result panel 452 (unknown) (no date) (unknown) [facility] (no value) (units unknown) (unknown) Result panel 453 (unknown) (no date) (unknown) [facility] (no value) (units unknown) (unknown) Result panel 454 (unknown) (no date) (unknown) [facility] (no value) (units unknown) (unknown) Result panel 455 (unknown) (no date) (unknown) [facility] (no value) (units unknown) (unknown) Result panel 456 (unknown) (no date) (unknown) [facility] (no value) (units unknown) (unknown) Result panel 457 (unknown) (no date) (unknown) [facility] (no value) (units unknown) (unknown) Result panel 458 (unknown) (no date) (unknown) [facility] (no value) (units unknown) (unknown) Result panel 459 (unknown) (no date) (unknown) [facility] (no value) (units unknown) (unknown) Result panel 460 (unknown) (no date) (unknown) [facility] (no value) (units unknown) (unknown) Result panel 461 (unknown) (no date) (unknown) [facility] (no value) (units unknown) (unknown) Result panel 462 (unknown) (no date) (unknown) [facility] (no value) (units unknown) (unknown) Result panel 463 (unknown) (no date) (unknown) [facility] (no value) (units unknown) (unknown) Result panel 464 (unknown) (no date) (unknown) [facility] (no value) (units unknown) (unknown) Result panel 465 (unknown) (no date) (unknown) [facility] (no value) (units unknown) (unknown) Result panel 466 (unknown) (no date) (unknown) [facility] (no value) (units unknown) (unknown) Result panel 467 (unknown) (no date) (unknown) [facility] (no value) (units unknown) (unknown) Result panel 468 (unknown) (no date) (unknown) [facility] (no value) (units unknown) (unknown) Result panel 469 (unknown) (no date) (unknown) [facility] (no value) (units unknown) (unknown) Result panel 470 (unknown) (no date) (unknown) [facility] (no value) (units unknown) (unknown) Result panel 471 (unknown) (no date) (unknown) [facility] (no value) (units unknown) (unknown) Result panel 472 (unknown) (no date) (unknown) [facility] (no value) (units unknown) (unknown) Result panel 473 (unknown) (no date) (unknown) [facility] (no value) (units unknown) (unknown) Result panel 474 (unknown) (no date) (unknown) [facility] (no value) (units unknown) (unknown) Result panel 475 (unknown) (no date) (unknown) [facility] (no value) (units unknown) (unknown) Result panel 476 (unknown) (no date) (unknown) [facility] (no value) (units unknown) (unknown) Result panel 477 (unknown) (no date) (unknown) [facility] (no value) (units unknown) (unknown) Result panel 478 (unknown) (no date) (unknown) [facility] (no value) (units unknown) (unknown) Result panel 479 (unknown) (no date) (unknown) [facility] (no value) (units unknown) (unknown) Result panel 480 (unknown) (no date) (unknown) [facility] (no value) (units unknown) (unknown) Result panel 481 (unknown) (no date) (unknown) [facility] (no value) (units unknown) (unknown) Result panel 482 (unknown) (no date) (unknown) [facility] (no value) (units unknown) (unknown) Result panel 483 (unknown) (no date) (unknown) [facility] (no value) (units unknown) (unknown) Result panel 484 (unknown) (no date) (unknown) [facility] (no value) (units unknown) (unknown) Result panel 485 (unknown) (no date) (unknown) [facility] (no value) (units unknown) (unknown) Result panel 486 (unknown) (no date) (unknown) [facility] (no value) (units unknown) (unknown) Result panel 487 (unknown) (no date) (unknown) [facility] (no value) (units unknown) (unknown) Result panel 488 (unknown) (no date) (unknown) [facility] (no value) (units unknown) (unknown) Result panel 489 (unknown) (no date) (unknown) [facility] (no value) (units unknown) (unknown) Result panel 490 (unknown) (no date) (unknown) [facility] (no value) (units unknown) (unknown) Result panel 491 (unknown) (no date) (unknown) [facility] (no value) (units unknown) (unknown) Result panel 492 (unknown) (no date) (unknown) [facility] (no value) (units unknown) (unknown) Result panel 493 (unknown) (no date) (unknown) [facility] (no value) (units unknown) (unknown) Result panel 494 (unknown) (no date) (unknown) [facility] (no value) (units unknown) (unknown) Result panel 495 (unknown) (no date) (unknown) [facility] (no value) (units unknown) (unknown) Result panel 496 (unknown) (no date) (unknown) [facility] (no value) (units unknown) (unknown) Result panel 497 (unknown) (no date) (unknown) [facility] (no value) (units unknown) (unknown) Result panel 498 (unknown) (no date) (unknown) [facility] (no value) (units unknown) (unknown) Result panel 499 (unknown) (no date) (unknown) [facility] (no value) (units unknown) (unknown) Result panel 500 (unknown) (no date) (unknown) [facility] (no value) (units unknown) (unknown) Result panel 501 (unknown) (no date) (unknown) [facility] (no value) (units unknown) (unknown) Result panel 502 (unknown) (no date) (unknown) [facility] (no value) (units unknown) (unknown) Result panel 503 (unknown) (no date) (unknown) [facility] (no value) (units unknown) (unknown) Result panel 504 (unknown) (no date) (unknown) [facility] (no value) (units unknown) (unknown) Result panel 505 (unknown) (no date) (unknown) [facility] (no value) (units unknown) (unknown) Result panel 506 (unknown) (no date) (unknown) [facility] (no value) (units unknown) (unknown) Result panel 507 (unknown) (no date) (unknown) [facility] (no value) (units unknown) (unknown) Result panel 508 (unknown) (no date) (unknown) [facility] (no value) (units unknown) (unknown) Result panel 509 (unknown) (no date) (unknown) [facility] (no value) (units unknown) (unknown) Result panel 510 (unknown) (no date) (unknown) [facility] (no value) (units unknown) (unknown) Result panel 511 (unknown) (no date) (unknown) [facility] (no value) (units unknown) (unknown) Result panel 512 (unknown) (no date) (unknown) [facility] (no value) (units unknown) (unknown) Result panel 513 (unknown) (no date) (unknown) [facility] (no value) (units unknown) (unknown) Result panel 514 (unknown) (no date) (unknown) [facility] (no value) (units unknown) (unknown) Result panel 515 (unknown) (no date) (unknown) [facility] (no value) (units unknown) (unknown) Result panel 516 (unknown) (no date) (unknown) [facility] (no value) (units unknown) (unknown) Result panel 517 (unknown) (no date) (unknown) [facility] (no value) (units unknown) (unknown) Result panel 518 (unknown) (no date) (unknown) [facility] (no value) (units unknown) (unknown) Result panel 519 (unknown) (no date) (unknown) [facility] (no value) (units unknown) (unknown) Result panel 520 (unknown) (no date) (unknown) [facility] (no value) (units unknown) (unknown) Result panel 521 (unknown) (no date) (unknown) [facility] (no value) (units unknown) (unknown) Result panel 522 (unknown) (no date) (unknown) [facility] (no value) (units unknown) (unknown) Result panel 523 (unknown) (no date) (unknown) [facility] (no value) (units unknown) (unknown) Result panel 524 (unknown) (no date) (unknown) [facility] (no value) (units unknown) (unknown) Result panel 525 (unknown) (no date) (unknown) [facility] (no value) (units unknown) (unknown) Result panel 526 (unknown) (no date) (unknown) [facility] (no value) (units unknown) (unknown) Result panel 527 (unknown) (no date) (unknown) [facility] (no value) (units unknown) (unknown) Result panel 528 (unknown) (no date) (unknown) [facility] (no value) (units unknown) (unknown) Result panel 529 (unknown) (no date) (unknown) [facility] (no value) (units unknown) (unknown) Result panel 530 (unknown) (no date) (unknown) [facility] (no value) (units unknown) (unknown) Result panel 531 (unknown) (no date) (unknown) [facility] (no value) (units unknown) (unknown) Result panel 532 (unknown) (no date) (unknown) [facility] (no value) (units unknown) (unknown) Result panel 533 (unknown) (no date) (unknown) [facility] (no value) (units unknown) (unknown) Result panel 534 (unknown) (no date) (unknown) [facility] (no value) (units unknown) (unknown) Result panel 535 (unknown) (no date) (unknown) [facility] (no value) (units unknown) (unknown) Result panel 536 (unknown) (no date) (unknown) [facility] (no value) (units unknown) (unknown) Result panel 537 (unknown) (no date) (unknown) [facility] (no value) (units unknown) (unknown) Result panel 538 (unknown) (no date) (unknown) [facility] (no value) (units unknown) (unknown) Result panel 539 (unknown) (no date) (unknown) [facility] (no value) (units unknown) (unknown) Result panel 540 (unknown) (no date) (unknown) [facility] (no value) (units unknown) (unknown) Result panel 541 (unknown) (no date) (unknown) [facility] (no value) (units unknown) (unknown) Result panel 542 (unknown) (no date) (unknown) [facility] (no value) (units unknown) (unknown) Result panel 543 (unknown) (no date) (unknown) [facility] (no value) (units unknown) (unknown) Result panel 544 (unknown) (no date) (unknown) [facility] (no value) (units unknown) (unknown) Result panel 545 (unknown) (no date) (unknown) [facility] (no value) (units unknown) (unknown) Result panel 546 (unknown) (no date) (unknown) [facility] (no value) (units unknown) (unknown) Result panel 547 (unknown) (no date) (unknown) [facility] (no value) (units unknown) (unknown) Result panel 548 (unknown) (no date) (unknown) [facility] (no value) (units unknown) (unknown) Result panel 549 (unknown) (no date) (unknown) [facility] (no value) (units unknown) (unknown) Result panel 550 (unknown) (no date) (unknown) [facility] (no value) (units unknown) (unknown) Result panel 551 (unknown) (no date) (unknown) [facility] (no value) (units unknown) (unknown) Result panel 552 (unknown) (no date) (unknown) [facility] (no value) (units unknown) (unknown) Result panel 553 (unknown) (no date) (unknown) [facility] (no value) (units unknown) (unknown) Result panel 554 (unknown) (no date) (unknown) [facility] (no value) (units unknown) (unknown) Result panel 555 (unknown) (no date) (unknown) [facility] (no value) (units unknown) (unknown) Result panel 556 (unknown) (no date) (unknown) [facility] (no value) (units unknown) (unknown) Result panel 557 (unknown) (no date) (unknown) [facility] (no value) (units unknown) (unknown) Result panel 558 (unknown) (no date) (unknown) [facility] (no value) (units unknown) (unknown) Result panel 559 (unknown) (no date) (unknown) [facility] (no value) (units unknown) (unknown) Result panel 560 (unknown) (no date) (unknown) [facility] (no value) (units unknown) (unknown) Result panel 561 (unknown) (no date) (unknown) [facility] (no value) (units unknown) (unknown) Result panel 562 (unknown) (no date) (unknown) [facility] (no value) (units unknown) (unknown) Result panel 563 (unknown) (no date) (unknown) [facility] (no value) (units unknown) (unknown) Result panel 564 (unknown) (no date) (unknown) [facility] (no value) (units unknown) (unknown) Result panel 565 (unknown) (no date) (unknown) [facility] (no value) (units unknown) (unknown) Result panel 566 (unknown) (no date) (unknown) [facility] (no value) (units unknown) (unknown) Result panel 567 (unknown) (no date) (unknown) [facility] (no value) (units unknown) (unknown) Result panel 568 (unknown) (no date) (unknown) [facility] (no value) (units unknown) (unknown) Result panel 569 (unknown) (no date) (unknown) [facility] (no value) (units unknown) (unknown) Result panel 570 (unknown) (no date) (unknown) [facility] (no value) (units unknown) (unknown) Result panel 571 (unknown) (no date) (unknown) [facility] (no value) (units unknown) (unknown) Result panel 572 (unknown) (no date) (unknown) [facility] (no value) (units unknown) (unknown) Result panel 573 (unknown) (no date) (unknown) [facility] (no value) (units unknown) (unknown) Result panel 574 (unknown) (no date) (unknown) [facility] (no value) (units unknown) (unknown) Result panel 575 (unknown) (no date) (unknown) [facility] (no value) (units unknown) (unknown) Result panel 576 (unknown) (no date) (unknown) [facility] (no value) (units unknown) (unknown) Result panel 577 (unknown) (no date) (unknown) [facility] (no value) (units unknown) (unknown) Result panel 578 (unknown) (no date) (unknown) [facility] (no value) (units unknown) (unknown) Result panel 579 (unknown) (no date) (unknown) [facility] (no value) (units unknown) (unknown) Result panel 580 (unknown) (no date) (unknown) [facility] (no value) (units unknown) (unknown) Result panel 581 (unknown) (no date) (unknown) [facility] (no value) (units unknown) (unknown) Result panel 582 (unknown) (no date) (unknown) [facility] (no value) (units unknown) (unknown) Result panel 583 (unknown) (no date) (unknown) [facility] (no value) (units unknown) (unknown) Result panel 584 (unknown) (no date) (unknown) [facility] (no value) (units unknown) (unknown) Result panel 585 (unknown) (no date) (unknown) [facility] (no value) (units unknown) (unknown) Result panel 586 (unknown) (no date) (unknown) [facility] (no value) (units unknown) (unknown) Result panel 587 (unknown) (no date) (unknown) [facility] (no value) (units unknown) (unknown) Result panel 588 (unknown) (no date) (unknown) [facility] (no value) (units unknown) (unknown) Result panel 589 (unknown) (no date) (unknown) [facility] (no value) (units unknown) (unknown) Result panel 590 (unknown) (no date) (unknown) [facility] (no value) (units unknown) (unknown) Result panel 591 (unknown) (no date) (unknown) [facility] (no value) (units unknown) (unknown) Result panel 592 (unknown) (no date) (unknown) [facility] (no value) (units unknown) (unknown) Result panel 593 (unknown) (no date) (unknown) [facility] (no value) (units unknown) (unknown) Result panel 594 (unknown) (no date) (unknown) [facility] (no value) (units unknown) (unknown) Result panel 595 (unknown) (no date) (unknown) [facility] (no value) (units unknown) (unknown) Result panel 596 (unknown) (no date) (unknown) [facility] (no value) (units unknown) (unknown) Result panel 597 (unknown) (no date) (unknown) [facility] (no value) (units unknown) (unknown) Result panel 598 (unknown) (no date) (unknown) [facility] (no value) (units unknown) (unknown) Result panel 599 (unknown) (no date) (unknown) [facility] (no value) (units unknown) (unknown) Result panel 600 (unknown) (no date) (unknown) [facility] (no value) (units unknown) (unknown) Result panel 601 (unknown) (no date) (unknown) [facility] (no value) (units unknown) (unknown) Result panel 602 (unknown) (no date) (unknown) [facility] (no value) (units unknown) (unknown) Result panel 603 (unknown) (no date) (unknown) [facility] (no value) (units unknown) (unknown) Result panel 604 (unknown) (no date) (unknown) [facility] (no value) (units unknown) (unknown) Result panel 605 (unknown) (no date) (unknown) [facility] (no value) (units unknown) (unknown) Result panel 606 (unknown) (no date) (unknown) [facility] (no value) (units unknown) (unknown) Result panel 607 (unknown) (no date) (unknown) [facility] (no value) (units unknown) (unknown) Result panel 608 (unknown) (no date) (unknown) [facility] (no value) (units unknown) (unknown) Result panel 609 (unknown) (no date) (unknown) [facility] (no value) (units unknown) (unknown) Result panel 610 (unknown) (no date) (unknown) [facility] (no value) (units unknown) (unknown) Result panel 611 (unknown) (no date) (unknown) [facility] (no value) (units unknown) (unknown) Result panel 612 (unknown) (no date) (unknown) [facility] (no value) (units unknown) (unknown) Result panel 613 (unknown) (no date) (unknown) [facility] (no value) (units unknown) (unknown) Result panel 614 (unknown) (no date) (unknown) [facility] (no value) (units unknown) (unknown) Result panel 615 (unknown) (no date) (unknown) [facility] (no value) (units unknown) (unknown) Result panel 616 (unknown) (no date) (unknown) [facility] (no value) (units unknown) (unknown) Result panel 617 (unknown) (no date) (unknown) [facility] (no value) (units unknown) (unknown) Result panel 618 (unknown) (no date) (unknown) [facility] (no value) (units unknown) (unknown) Result panel 619 (unknown) (no date) (unknown) [facility] (no value) (units unknown) (unknown) Result panel 620 (unknown) (no date) (unknown) [facility] (no value) (units unknown) (unknown) Result panel 621 (unknown) (no date) (unknown) [facility] (no value) (units unknown) (unknown) Result panel 622 (unknown) (no date) (unknown) [facility] (no value) (units unknown) (unknown) Result panel 623 (unknown) (no date) (unknown) [facility] (no value) (units unknown) (unknown) Result panel 624 (unknown) (no date) (unknown) [facility] (no value) (units unknown) (unknown) Result panel 625 (unknown) (no date) (unknown) [facility] (no value) (units unknown) (unknown) Result panel 626 (unknown) (no date) (unknown) [facility] (no value) (units unknown) (unknown) Result panel 627 (unknown) (no date) (unknown) [facility] (no value) (units unknown) (unknown) Result panel 628 (unknown) (no date) (unknown) [facility] (no value) (units unknown) (unknown) Result panel 629 (unknown) (no date) (unknown) [facility] (no value) (units unknown) (unknown) Result panel 630 (unknown) (no date) (unknown) [facility] (no value) (units unknown) (unknown) Result panel 631 (unknown) (no date) (unknown) [facility] (no value) (units unknown) (unknown) Result panel 632 (unknown) (no date) (unknown) [facility] (no value) (units unknown) (unknown) Result panel 633 (unknown) (no date) (unknown) [facility] (no value) (units unknown) (unknown) Result panel 634 (unknown) (no date) (unknown) [facility] (no value) (units unknown) (unknown) Result panel 635 (unknown) (no date) (unknown) [facility] (no value) (units unknown) (unknown) Result panel 636 (unknown) (no date) (unknown) [facility] (no value) (units unknown) (unknown) Result panel 637 (unknown) (no date) (unknown) [facility] (no value) (units unknown) (unknown) Result panel 638 (unknown) (no date) (unknown) [facility] (no value) (units unknown) (unknown) Result panel 639 (unknown) (no date) (unknown) [facility] (no value) (units unknown) (unknown) Result panel 640 (unknown) (no date) (unknown) [facility] (no value) (units unknown) (unknown) Result panel 641 (unknown) (no date) (unknown) [facility] (no value) (units unknown) (unknown) Result panel 642 (unknown) (no date) (unknown) [facility] (no value) (units unknown) (unknown) Result panel 643 (unknown) (no date) (unknown) [facility] (no value) (units unknown) (unknown) Result panel 644 (unknown) (no date) (unknown) [facility] (no value) (units unknown) (unknown) Result panel 645 (unknown) (no date) (unknown) [facility] (no value) (units unknown) (unknown) Result panel 646 (unknown) (no date) (unknown) [facility] (no value) (units unknown) (unknown) Result panel 647 (unknown) (no date) (unknown) [facility] (no value) (units unknown) (unknown) Result panel 648 (unknown) (no date) (unknown) [facility] (no value) (units unknown) (unknown) Result panel 649 (unknown) (no date) (unknown) [facility] (no value) (units unknown) (unknown) Result panel 650 (unknown) (no date) (unknown) [facility] (no value) (units unknown) (unknown) Result panel 651 (unknown) (no date) (unknown) [facility] (no value) (units unknown) (unknown) Result panel 652 (unknown) (no date) (unknown) [facility] (no value) (units unknown) (unknown) Result panel 653 (unknown) (no date) (unknown) [facility] (no value) (units unknown) (unknown) Result panel 654 (unknown) (no date) (unknown) [facility] (no value) (units unknown) (unknown) Result panel 655 (unknown) (no date) (unknown) [facility] (no value) (units unknown) (unknown) Result panel 656 (unknown) (no date) (unknown) [facility] (no value) (units unknown) (unknown) Result panel 657 (unknown) (no date) (unknown) [facility] (no value) (units unknown) (unknown) Result panel 658 (unknown) (no date) (unknown) [facility] (no value) (units unknown) (unknown) Result panel 659 (unknown) (no date) (unknown) [facility] (no value) (units unknown) (unknown) Result panel 660 (unknown) (no date) (unknown) [facility] (no value) (units unknown) (unknown) Result panel 661 (unknown) (no date) (unknown) [facility] (no value) (units unknown) (unknown) Result panel 662 (unknown) (no date) (unknown) [facility] (no value) (units unknown) (unknown) Result panel 663 (unknown) (no date) (unknown) [facility] (no value) (units unknown) (unknown) Result panel 664 (unknown) (no date) (unknown) [facility] (no value) (units unknown) (unknown) Result panel 665 (unknown) (no date) (unknown) [facility] (no value) (units unknown) (unknown) Result panel 666 (unknown) (no date) (unknown) [facility] (no value) (units unknown) (unknown) Result panel 667 (unknown) (no date) (unknown) [facility] (no value) (units unknown) (unknown) Result panel 668 (unknown) (no date) (unknown) [facility] (no value) (units unknown) (unknown) Result panel 669 (unknown) (no date) (unknown) [facility] (no value) (units unknown) (unknown) Result panel 670 (unknown) (no date) (unknown) [facility] (no value) (units unknown) (unknown) Result panel 671 (unknown) (no date) (unknown) [facility] (no value) (units unknown) (unknown) Result panel 672 (unknown) (no date) (unknown) [facility] (no value) (units unknown) (unknown) Result panel 673 (unknown) (no date) (unknown) [facility] (no value) (units unknown) (unknown) Result panel 674 (unknown) (no date) (unknown) [facility] (no value) (units unknown) (unknown) Result panel 675 (unknown) (no date) (unknown) [facility] (no value) (units unknown) (unknown) Result panel 676 (unknown) (no date) (unknown) [facility] (no value) (units unknown) (unknown) Result panel 677 (unknown) (no date) (unknown) [facility] (no value) (units unknown) (unknown) Result panel 678 (unknown) (no date) (unknown) [facility] (no value) (units unknown) (unknown) Result panel 679 (unknown) (no date) (unknown) [facility] (no value) (units unknown) (unknown) Result panel 680 (unknown) (no date) (unknown) [facility] (no value) (units unknown) (unknown) Result panel 681 (unknown) (no date) (unknown) [facility] (no value) (units unknown) (unknown) Result panel 682 (unknown) (no date) (unknown) [facility] (no value) (units unknown) (unknown) Result panel 683 (unknown) (no date) (unknown) [facility] (no value) (units unknown) (unknown) Result panel 684 (unknown) (no date) (unknown) [facility] (no value) (units unknown) (unknown) Result panel 685 (unknown) (no date) (unknown) [facility] (no value) (units unknown) (unknown) Result panel 686 (unknown) (no date) (unknown) [facility] (no value) (units unknown) (unknown) Result panel 687 (unknown) (no date) (unknown) [facility] (no value) (units unknown) (unknown) Result panel 688 (unknown) (no date) (unknown) [facility] (no value) (units unknown) (unknown) Result panel 689 (unknown) (no date) (unknown) [facility] (no value) (units unknown) (unknown) Result panel 690 (unknown) (no date) (unknown) [facility] (no value) (units unknown) (unknown) Result panel 691 (unknown) (no date) (unknown) [facility] (no value) (units unknown) (unknown) Result panel 692 (unknown) (no date) (unknown) [facility] (no value) (units unknown) (unknown) Result panel 693 (unknown) (no date) (unknown) [facility] (no value) (units unknown) (unknown) Result panel 694 (unknown) (no date) (unknown) [facility] (no value) (units unknown) (unknown) Result panel 695 (unknown) (no date) (unknown) [facility] (no value) (units unknown) (unknown) Result panel 696 (unknown) (no date) (unknown) [facility] (no value) (units unknown) (unknown) Result panel 697 (unknown) (no date) (unknown) [facility] (no value) (units unknown) (unknown) Result panel 698 (unknown) (no date) (unknown) [facility] (no value) (units unknown) (unknown) Result panel 699 (unknown) (no date) (unknown) [facility] (no value) (units unknown) (unknown) Result panel 700 (unknown) (no date) (unknown) [facility] (no value) (units unknown) (unknown) Result panel 701 (unknown) (no date) (unknown) [facility] (no value) (units unknown) (unknown) Result panel 702 (unknown) (no date) (unknown) [facility] (no value) (units unknown) (unknown) Result panel 703 (unknown) (no date) (unknown) [facility] (no value) (units unknown) (unknown) Result panel 704 (unknown) (no date) (unknown) [facility] (no value) (units unknown) (unknown) Result panel 705 (unknown) (no date) (unknown) [facility] (no value) (units unknown) (unknown) Result panel 706 (unknown) (no date) (unknown) [facility] (no value) (units unknown) (unknown) Result panel 707 (unknown) (no date) (unknown) [facility] (no value) (units unknown) (unknown) Result panel 708 (unknown) (no date) (unknown) [facility] (no value) (units unknown) (unknown) Result panel 709 (unknown) (no date) (unknown) [facility] (no value) (units unknown) (unknown) Result panel 710 (unknown) (no date) (unknown) [facility] (no value) (units unknown) (unknown) Result panel 711 (unknown) (no date) (unknown) [facility] (no value) (units unknown) (unknown) Result panel 712 (unknown) (no date) (unknown) [facility] (no value) (units unknown) (unknown) Result panel 713 (unknown) (no date) (unknown) [facility] (no value) (units unknown) (unknown) Result panel 714 (unknown) (no date) (unknown) [facility] (no value) (units unknown) (unknown) Result panel 715 (unknown) (no date) (unknown) [facility] (no value) (units unknown) (unknown) Result panel 716 (unknown) (no date) (unknown) [facility] (no value) (units unknown) (unknown) Result panel 717 (unknown) (no date) (unknown) [facility] (no value) (units unknown) (unknown) Result panel 718 (unknown) (no date) (unknown) [facility] (no value) (units unknown) (unknown) Result panel 719 (unknown) (no date) (unknown) [facility] (no value) (units unknown) (unknown) Result panel 720 (unknown) (no date) (unknown) [facility] (no value) (units unknown) (unknown) Result panel 721 (unknown) (no date) (unknown) [facility] (no value) (units unknown) (unknown) Result panel 722 (unknown) (no date) (unknown) [facility] (no value) (units unknown) (unknown) Result panel 723 (unknown) (no date) (unknown) [facility] (no value) (units unknown) (unknown) Result panel 724 (unknown) (no date) (unknown) [facility] (no value) (units unknown) (unknown) Result panel 725 (unknown) (no date) (unknown) [facility] (no value) (units unknown) (unknown) Result panel 726 (unknown) (no date) (unknown) [facility] (no value) (units unknown) (unknown) Result panel 727 (unknown) (no date) (unknown) [facility] (no value) (units unknown) (unknown) Result panel 728 (unknown) (no date) (unknown) [facility] (no value) (units unknown) (unknown) Result panel 729 (unknown) (no date) (unknown) [facility] (no value) (units unknown) (unknown) Result panel 730 (unknown) (no date) (unknown) [facility] (no value) (units unknown) (unknown) Result panel 731 (unknown) (no date) (unknown) [facility] (no value) (units unknown) (unknown) Result panel 732 (unknown) (no date) (unknown) [facility] (no value) (units unknown) (unknown) Result panel 733 (unknown) (no date) (unknown) [facility] (no value) (units unknown) (unknown) Result panel 734 (unknown) (no date) (unknown) [facility] (no value) (units unknown) (unknown) Result panel 735 (unknown) (no date) (unknown) [facility] (no value) (units unknown) (unknown) Result panel 736 (unknown) (no date) (unknown) [facility] (no value) (units unknown) (unknown) Result panel 737 (unknown) (no date) (unknown) [facility] (no value) (units unknown) (unknown) Result panel 738 (unknown) (no date) (unknown) [facility] (no value) (units unknown) (unknown) Result panel 739 (unknown) (no date) (unknown) [facility] (no value) (units unknown) (unknown) Result panel 740 (unknown) (no date) (unknown) [facility] (no value) (units unknown) (unknown) Result panel 741 (unknown) (no date) (unknown) [facility] (no value) (units unknown) (unknown) Result panel 742 (unknown) (no date) (unknown) [facility] (no value) (units unknown) (unknown) Result panel 743 (unknown) (no date) (unknown) [facility] (no value) (units unknown) (unknown) Result panel 744 (unknown) (no date) (unknown) [facility] (no value) (units unknown) (unknown) Result panel 745 (unknown) (no date) (unknown) [facility] (no value) (units unknown) (unknown) Result panel 746 (unknown) (no date) (unknown) [facility] (no value) (units unknown) (unknown) Result panel 747 (unknown) (no date) (unknown) [facility] (no value) (units unknown) (unknown) Result panel 748 (unknown) (no date) (unknown) [facility] (no value) (units unknown) (unknown) Result panel 749 (unknown) (no date) (unknown) [facility] (no value) (units unknown) (unknown) Result panel 750 (unknown) (no date) (unknown) [facility] (no value) (units unknown) (unknown) Result panel 751 (unknown) (no date) (unknown) [facility] (no value) (units unknown) (unknown) Result panel 752 (unknown) (no date) (unknown) [facility] (no value) (units unknown) (unknown) Result panel 753 (unknown) (no date) (unknown) [facility] (no value) (units unknown) (unknown) Result panel 754 (unknown) (no date) (unknown) [facility] (no value) (units unknown) (unknown) Result panel 755 (unknown) (no date) (unknown) [facility] (no value) (units unknown) (unknown) Result panel 756 (unknown) (no date) (unknown) [facility] (no value) (units unknown) (unknown) Result panel 757 (unknown) (no date) (unknown) [facility] (no value) (units unknown) (unknown) Result panel 758 (unknown) (no date) (unknown) [facility] (no value) (units unknown) (unknown) Result panel 759 (unknown) (no date) (unknown) [facility] (no value) (units unknown) (unknown) Result panel 760 (unknown) (no date) (unknown) [facility] (no value) (units unknown) (unknown) Result panel 761 (unknown) (no date) (unknown) [facility] (no value) (units unknown) (unknown) Result panel 762 (unknown) (no date) (unknown) [facility] (no value) (units unknown) (unknown) Result panel 763 (unknown) (no date) (unknown) [facility] (no value) (units unknown) (unknown) Result panel 764 (unknown) (no date) (unknown) [facility] (no value) (units unknown) (unknown) Result panel 765 (unknown) (no date) (unknown) [facility] (no value) (units unknown) (unknown) Result panel 766 (unknown) (no date) (unknown) [facility] (no value) (units unknown) (unknown) Result panel 767 (unknown) (no date) (unknown) [facility] (no value) (units unknown) (unknown) Result panel 768 (unknown) (no date) (unknown) [facility] (no value) (units unknown) (unknown) Result panel 769 (unknown) (no date) (unknown) [facility] (no value) (units unknown) (unknown) Result panel 770 (unknown) (no date) (unknown) [facility] (no value) (units unknown) (unknown) Result panel 771 (unknown) (no date) (unknown) [facility] (no value) (units unknown) (unknown) Result panel 772 (unknown) (no date) (unknown) [facility] (no value) (units unknown) (unknown) Result panel 773 (unknown) (no date) (unknown) [facility] (no value) (units unknown) (unknown) Result panel 774 (unknown) (no date) (unknown) [facility] (no value) (units unknown) (unknown) Result panel 775 (unknown) (no date) (unknown) [facility] (no value) (units unknown) (unknown) Result panel 776 (unknown) (no date) (unknown) [facility] (no value) (units unknown) (unknown) Result panel 777 (unknown) (no date) (unknown) [facility] (no value) (units unknown) (unknown) Result panel 778 (unknown) (no date) (unknown) [facility] (no value) (units unknown) (unknown) Result panel 779 (unknown) (no date) (unknown) [facility] (no value) (units unknown) (unknown) Result panel 780 (unknown) (no date) (unknown) [facility] (no value) (units unknown) (unknown) Result panel 781 (unknown) (no date) (unknown) [facility] (no value) (units unknown) (unknown) Result panel 782 (unknown) (no date) (unknown) [facility] (no value) (units unknown) (unknown) Result panel 783 (unknown) (no date) (unknown) [facility] (no value) (units unknown) (unknown) Result panel 784 (unknown) (no date) (unknown) [facility] (no value) (units unknown) (unknown) Result panel 785 (unknown) (no date) (unknown) [facility] (no value) (units unknown) (unknown) Result panel 786 (unknown) (no date) (unknown) [facility] (no value) (units unknown) (unknown) Result panel 787 (unknown) (no date) (unknown) [facility] (no value) (units unknown) (unknown) Result panel 788 (unknown) (no date) (unknown) [facility] (no value) (units unknown) (unknown) Result panel 789 (unknown) (no date) (unknown) [facility] (no value) (units unknown) (unknown) Result panel 790 (unknown) (no date) (unknown) [facility] (no value) (units unknown) (unknown) Result panel 791 (unknown) (no date) (unknown) [facility] (no value) (units unknown) (unknown) Result panel 792 (unknown) (no date) (unknown) [facility] (no value) (units unknown) (unknown) Result panel 793 (unknown) (no date) (unknown) [facility] (no value) (units unknown) (unknown) Result panel 794 (unknown) (no date) (unknown) [facility] (no value) (units unknown) (unknown) Result panel 795 (unknown) (no date) (unknown) [facility] (no value) (units unknown) (unknown) Result panel 796 (unknown) (no date) (unknown) [facility] (no value) (units unknown) (unknown) Result panel 797 (unknown) (no date) (unknown) [facility] (no value) (units unknown) (unknown) Result panel 798 (unknown) (no date) (unknown) [facility] (no value) (units unknown) (unknown) Result panel 799 (unknown) (no date) (unknown) [facility] (no value) (units unknown) (unknown) Result panel 800 (unknown) (no date) (unknown) [facility] (no value) (units unknown) (unknown) Result panel 801 (unknown) (no date) (unknown) [facility] (no value) (units unknown) (unknown) Result panel 802 (unknown) (no date) (unknown) [facility] (no value) (units unknown) (unknown) Result panel 803 (unknown) (no date) (unknown) [facility] (no value) (units unknown) (unknown) Result panel 804 (unknown) (no date) (unknown) [facility] (no value) (units unknown) (unknown) Result panel 805 (unknown) (no date) (unknown) [facility] (no value) (units unknown) (unknown) Result panel 806 (unknown) (no date) (unknown) [facility] (no value) (units unknown) (unknown) Result panel 807 (unknown) (no date) (unknown) [facility] (no value) (units unknown) (unknown) Result panel 808 (unknown) (no date) (unknown) [facility] (no value) (units unknown) (unknown) Result panel 809 (unknown) (no date) (unknown) [facility] (no value) (units unknown) (unknown) Result panel 810 (unknown) (no date) (unknown) [facility] (no value) (units unknown) (unknown) Result panel 811 (unknown) (no date) (unknown) [facility] (no value) (units unknown) (unknown) Result panel 812 (unknown) (no date) (unknown) [facility] (no value) (units unknown) (unknown) Result panel 813 (unknown) (no date) (unknown) [facility] (no value) (units unknown) (unknown) Result panel 814 (unknown) (no date) (unknown) [facility] (no value) (units unknown) (unknown) Result panel 815 (unknown) (no date) (unknown) [facility] (no value) (units unknown) (unknown) Result panel 816 (unknown) (no date) (unknown) [facility] (no value) (units unknown) (unknown) Result panel 817 (unknown) (no date) (unknown) [facility] (no value) (units unknown) (unknown) Result panel 818 (unknown) (no date) (unknown) [facility] (no value) (units unknown) (unknown) Result panel 819 (unknown) (no date) (unknown) [facility] (no value) (units unknown) (unknown) Result panel 820 (unknown) (no date) (unknown) [facility] (no value) (units unknown) (unknown) Result panel 821 (unknown) (no date) (unknown) [facility] (no value) (units unknown) (unknown) Result panel 822 (unknown) (no date) (unknown) [facility] (no value) (units unknown) (unknown) Result panel 823 (unknown) (no date) (unknown) [facility] (no value) (units unknown) (unknown) Result panel 824 (unknown) (no date) (unknown) [facility] (no value) (units unknown) (unknown) Result panel 825 (unknown) (no date) (unknown) [facility] (no value) (units unknown) (unknown) Result panel 826 (unknown) (no date) (unknown) [facility] (no value) (units unknown) (unknown) Result panel 827 (unknown) (no date) (unknown) [facility] (no value) (units unknown) (unknown) Result panel 828 (unknown) (no date) (unknown) [facility] (no value) (units unknown) (unknown) Result panel 829 (unknown) (no date) (unknown) [facility] (no value) (units unknown) (unknown) Result panel 830 (unknown) (no date) (unknown) [facility] (no value) (units unknown) (unknown) Result panel 831 (unknown) (no date) (unknown) [facility] (no value) (units unknown) (unknown) Result panel 832 (unknown) (no date) (unknown) [facility] (no value) (units unknown) (unknown) Result panel 833 (unknown) (no date) (unknown) [facility] (no value) (units unknown) (unknown) Result panel 834 (unknown) (no date) (unknown) [facility] (no value) (units unknown) (unknown) Result panel 835 (unknown) (no date) (unknown) [facility] (no value) (units unknown) (unknown) Result panel 836 (unknown) (no date) (unknown) [facility] (no value) (units unknown) (unknown) Result panel 837 (unknown) (no date) (unknown) [facility] (no value) (units unknown) (unknown) Result panel 838 (unknown) (no date) (unknown) [facility] (no value) (units unknown) (unknown) Result panel 839 (unknown) (no date) (unknown) [facility] (no value) (units unknown) (unknown) Result panel 840 (unknown) (no date) (unknown) [facility] (no value) (units unknown) (unknown) Result panel 841 (unknown) (no date) (unknown) [facility] (no value) (units unknown) (unknown) Result panel 842 (unknown) (no date) (unknown) [facility] (no value) (units unknown) (unknown) Result panel 843 (unknown) (no date) (unknown) [facility] (no value) (units unknown) (unknown) Result panel 844 (unknown) (no date) (unknown) [facility] (no value) (units unknown) (unknown) Result panel 845 (unknown) (no date) (unknown) [facility] (no value) (units unknown) (unknown) Result panel 846 (unknown) (no date) (unknown) [facility] (no value) (units unknown) (unknown) Result panel 847 (unknown) (no date) (unknown) [facility] (no value) (units unknown) (unknown) Result panel 848 (unknown) (no date) (unknown) [facility] (no value) (units unknown) (unknown) Result panel 849 (unknown) (no date) (unknown) [facility] (no value) (units unknown) (unknown) Result panel 850 (unknown) (no date) (unknown) [facility] (no value) (units unknown) (unknown) Result panel 851 (unknown) (no date) (unknown) [facility] (no value) (units unknown) (unknown) Result panel 852 (unknown) (no date) (unknown) [facility] (no value) (units unknown) (unknown) Result panel 853 (unknown) (no date) (unknown) [facility] (no value) (units unknown) (unknown) Result panel 854 (unknown) (no date) (unknown) [facility] (no value) (units unknown) (unknown) Result panel 855 (unknown) (no date) (unknown) [facility] (no value) (units unknown) (unknown) Result panel 856 (unknown) (no date) (unknown) [facility] (no value) (units unknown) (unknown) Result panel 857 (unknown) (no date) (unknown) [facility] (no value) (units unknown) (unknown) Result panel 858 (unknown) (no date) (unknown) [facility] (no value) (units unknown) (unknown) Result panel 859 (unknown) (no date) (unknown) [facility] (no value) (units unknown) (unknown) Result panel 860 (unknown) (no date) (unknown) [facility] (no value) (units unknown) (unknown) Result panel 861 (unknown) (no date) (unknown) [facility] (no value) (units unknown) (unknown) Result panel 862 (unknown) (no date) (unknown) [facility] (no value) (units unknown) (unknown) Result panel 863 (unknown) (no date) (unknown) [facility] (no value) (units unknown) (unknown) Result panel 864 (unknown) (no date) (unknown) [facility] (no value) (units unknown) (unknown) Result panel 865 (unknown) (no date) (unknown) [facility] (no value) (units unknown) (unknown) Result panel 866 (unknown) (no date) (unknown) [facility] (no value) (units unknown) (unknown) Result panel 867 (unknown) (no date) (unknown) [facility] (no value) (units unknown) (unknown) Result panel 868 (unknown) (no date) (unknown) [facility] (no value) (units unknown) (unknown) Result panel 869 (unknown) (no date) (unknown) [facility] (no value) (units unknown) (unknown) Result panel 870 (unknown) (no date) (unknown) [facility] (no value) (units unknown) (unknown) Result panel 871 (unknown) (no date) (unknown) [facility] (no value) (units unknown) (unknown) Result panel 872 (unknown) (no date) (unknown) [facility] (no value) (units unknown) (unknown) Result panel 873 (unknown) (no date) (unknown) [facility] (no value) (units unknown) (unknown) Result panel 874 (unknown) (no date) (unknown) [facility] (no value) (units unknown) (unknown) Result panel 875 (unknown) (no date) (unknown) [facility] (no value) (units unknown) (unknown) Result panel 876 (unknown) (no date) (unknown) [facility] (no value) (units unknown) (unknown) Result panel 877 (unknown) (no date) (unknown) [facility] (no value) (units unknown) (unknown) Result panel 878 (unknown) (no date) (unknown) [facility] (no value) (units unknown) (unknown) Result panel 879 (unknown) (no date) (unknown) [facility] (no value) (units unknown) (unknown) Result panel 880 (unknown) (no date) (unknown) [facility] (no value) (units unknown) (unknown) Result panel 881 (unknown) (no date) (unknown) [facility] (no value) (units unknown) (unknown) Result panel 882 (unknown) (no date) (unknown) [facility] (no value) (units unknown) (unknown) Result panel 883 (unknown) (no date) (unknown) [facility] (no value) (units unknown) (unknown) Result panel 884 (unknown) (no date) (unknown) [facility] (no value) (units unknown) (unknown) Result panel 885 (unknown) (no date) (unknown) [facility] (no value) (units unknown) (unknown) Result panel 886 (unknown) (no date) (unknown) [facility] (no value) (units unknown) (unknown) Result panel 887 (unknown) (no date) (unknown) [facility] (no value) (units unknown) (unknown) Result panel 888 (unknown) (no date) (unknown) [facility] (no value) (units unknown) (unknown) Result panel 889 (unknown) (no date) (unknown) [facility] (no value) (units unknown) (unknown) Result panel 890 (unknown) (no date) (unknown) [facility] (no value) (units unknown) (unknown) Result panel 891 (unknown) (no date) (unknown) [facility] (no value) (units unknown) (unknown) Result panel 892 (unknown) (no date) (unknown) [facility] (no value) (units unknown) (unknown) Result panel 893 (unknown) (no date) (unknown) [facility] (no value) (units unknown) (unknown) Result panel 894 (unknown) (no date) (unknown) [facility] (no value) (units unknown) (unknown) Result panel 895 (unknown) (no date) (unknown) [facility] (no value) (units unknown) (unknown) Result panel 896 (unknown) (no date) (unknown) [facility] (no value) (units unknown) (unknown) Result panel 897 (unknown) (no date) (unknown) [facility] (no value) (units unknown) (unknown) Result panel 898 (unknown) (no date) (unknown) [facility] (no value) (units unknown) (unknown) Result panel 899 (unknown) (no date) (unknown) [facility] (no value) (units unknown) (unknown) Result panel 900 (unknown) (no date) (unknown) [facility] (no value) (units unknown) (unknown) Result panel 901 (unknown) (no date) (unknown) [facility] (no value) (units unknown) (unknown) Result panel 902 (unknown) (no date) (unknown) [facility] (no value) (units unknown) (unknown) Result panel 903 (unknown) (no date) (unknown) [facility] (no value) (units unknown) (unknown) Result panel 904 (unknown) (no date) (unknown) [facility] (no value) (units unknown) (unknown) Result panel 905 (unknown) (no date) (unknown) [facility] (no value) (units unknown) (unknown) Result panel 906 (unknown) (no date) (unknown) [facility] (no value) (units unknown) (unknown) Result panel 907 (unknown) (no date) (unknown) [facility] (no value) (units unknown) (unknown) Result panel 908 (unknown) (no date) (unknown) [facility] (no value) (units unknown) (unknown) Result panel 909 (unknown) (no date) (unknown) [facility] (no value) (units unknown) (unknown) Result panel 910 (unknown) (no date) (unknown) [facility] (no value) (units unknown) (unknown) Result panel 911 (unknown) (no date) (unknown) [facility] (no value) (units unknown) (unknown) Result panel 912 (unknown) (no date) (unknown) [facility] (no value) (units unknown) (unknown) Result panel 913 (unknown) (no date) (unknown) [facility] (no value) (units unknown) (unknown) Result panel 914 (unknown) (no date) (unknown) [facility] (no value) (units unknown) (unknown) Result panel 915 (unknown) (no date) (unknown) [facility] (no value) (units unknown) (unknown) Result panel 916 (unknown) (no date) (unknown) [facility] (no value) (units unknown) (unknown) Result panel 917 (unknown) (no date) (unknown) [facility] (no value) (units unknown) (unknown) Result panel 918 (unknown) (no date) (unknown) [facility] (no value) (units unknown) (unknown) Result panel 919 (unknown) (no date) (unknown) [facility] (no value) (units unknown) (unknown) Result panel 920 (unknown) (no date) (unknown) [facility] (no value) (units unknown) (unknown) Result panel 921 (unknown) (no date) (unknown) [facility] (no value) (units unknown) (unknown) Result panel 922 (unknown) (no date) (unknown) [facility] (no value) (units unknown) (unknown) Result panel 923 (unknown) (no date) (unknown) [facility] (no value) (units unknown) (unknown) Result panel 924 (unknown) (no date) (unknown) [facility] (no value) (units unknown) (unknown) Result panel 925 (unknown) (no date) (unknown) [facility] (no value) (units unknown) (unknown) Result panel 926 (unknown) (no date) (unknown) [facility] (no value) (units unknown) (unknown) Result panel 927 (unknown) (no date) (unknown) [facility] (no value) (units unknown) (unknown) Result panel 928 (unknown) (no date) (unknown) [facility] (no value) (units unknown) (unknown) Result panel 929 (unknown) (no date) (unknown) [facility] (no value) (units unknown) (unknown) Result panel 930 (unknown) (no date) (unknown) [facility] (no value) (units unknown) (unknown) Result panel 931 (unknown) (no date) (unknown) [facility] (no value) (units unknown) (unknown) Result panel 932 (unknown) (no date) (unknown) [facility] (no value) (units unknown) (unknown) Result panel 933 (unknown) (no date) (unknown) [facility] (no value) (units unknown) (unknown) Result panel 934 (unknown) (no date) (unknown) [facility] (no value) (units unknown) (unknown) Result panel 935 (unknown) (no date) (unknown) [facility] (no value) (units unknown) (unknown) Result panel 936 (unknown) (no date) (unknown) [facility] (no value) (units unknown) (unknown) Result panel 937 (unknown) (no date) (unknown) [facility] (no value) (units unknown) (unknown) Result panel 938 (unknown) (no date) (unknown) [facility] (no value) (units unknown) (unknown) Result panel 939 (unknown) (no date) (unknown) [facility] (no value) (units unknown) (unknown) Result panel 940 (unknown) (no date) (unknown) [facility] (no value) (units unknown) (unknown) Result panel 941 (unknown) (no date) (unknown) [facility] (no value) (units unknown) (unknown) Result panel 942 (unknown) (no date) (unknown) [facility] (no value) (units unknown) (unknown) Result panel 943 (unknown) (no date) (unknown) [facility] (no value) (units unknown) (unknown) Result panel 944 (unknown) (no date) (unknown) [facility] (no value) (units unknown) (unknown) Result panel 945 (unknown) (no date) (unknown) [facility] (no value) (units unknown) (unknown) Result panel 946 (unknown) (no date) (unknown) [facility] (no value) (units unknown) (unknown) Result panel 947 (unknown) (no date) (unknown) [facility] (no value) (units unknown) (unknown) Result panel 948 (unknown) (no date) (unknown) [facility] (no value) (units unknown) (unknown) Result panel 949 (unknown) (no date) (unknown) [facility] (no value) (units unknown) (unknown) Result panel 950 (unknown) (no date) (unknown) [facility] (no value) (units unknown) (unknown) Result panel 951 (unknown) (no date) (unknown) [facility] (no value) (units unknown) (unknown) Result panel 952 (unknown) (no date) (unknown) [facility] (no value) (units unknown) (unknown) Result panel 953 (unknown) (no date) (unknown) [facility] (no value) (units unknown) (unknown) Result panel 954 (unknown) (no date) (unknown) [facility] (no value) (units unknown) (unknown) Result panel 955 (unknown) (no date) (unknown) [facility] (no value) (units unknown) (unknown) Result panel 956 (unknown) (no date) (unknown) [facility] (no value) (units unknown) (unknown) Result panel 957 (unknown) (no date) (unknown) [facility] (no value) (units unknown) (unknown) Result panel 958 (unknown) (no date) (unknown) [facility] (no value) (units unknown) (unknown) Result panel 959 (unknown) (no date) (unknown) [facility] (no value) (units unknown) (unknown) Result panel 960 (unknown) (no date) (unknown) [facility] (no value) (units unknown) (unknown) Result panel 961 (unknown) (no date) (unknown) [facility] (no value) (units unknown) (unknown) Result panel 962 (unknown) (no date) (unknown) [facility] (no value) (units unknown) (unknown) Result panel 963 (unknown) (no date) (unknown) [facility] (no value) (units unknown) (unknown) Result panel 964 (unknown) (no date) (unknown) [facility] (no value) (units unknown) (unknown) Result panel 965 (unknown) (no date) (unknown) [facility] (no value) (units unknown) (unknown) Result panel 966 (unknown) (no date) (unknown) [facility] (no value) (units unknown) (unknown) Result panel 967 (unknown) (no date) (unknown) [facility] (no value) (units unknown) (unknown) Result panel 968 (unknown) (no date) (unknown) [facility] (no value) (units unknown) (unknown) Result panel 969 (unknown) (no date) (unknown) [facility] (no value) (units unknown) (unknown) Result panel 970 (unknown) (no date) (unknown) [facility] (no value) (units unknown) (unknown) Result panel 971 (unknown) (no date) (unknown) [facility] (no value) (units unknown) (unknown) Result panel 972 (unknown) (no date) (unknown) [facility] (no value) (units unknown) (unknown) Result panel 973 (unknown) (no date) (unknown) [facility] (no value) (units unknown) (unknown) Result panel 974 (unknown) (no date) (unknown) [facility] (no value) (units unknown) (unknown) Result panel 975 (unknown) (no date) (unknown) [facility] (no value) (units unknown) (unknown) Result panel 976 (unknown) (no date) (unknown) [facility] (no value) (units unknown) (unknown) Result panel 977 (unknown) (no date) (unknown) [facility] (no value) (units unknown) (unknown) Result panel 978 (unknown) (no date) (unknown) [facility] (no value) (units unknown) (unknown) Result panel 979 (unknown) (no date) (unknown) [facility] (no value) (units unknown) (unknown) Result panel 980 (unknown) (no date) (unknown) [facility] (no value) (units unknown) (unknown) Result panel 981 (unknown) (no date) (unknown) [facility] (no value) (units unknown) (unknown) Result panel 982 (unknown) (no date) (unknown) [facility] (no value) (units unknown) (unknown) Result panel 983 (unknown) (no date) (unknown) [facility] (no value) (units unknown) (unknown) Result panel 984 (unknown) (no date) (unknown) [facility] (no value) (units unknown) (unknown) Result panel 985 (unknown) (no date) (unknown) [facility] (no value) (units unknown) (unknown) Result panel 986 (unknown) (no date) (unknown) [facility] (no value) (units unknown) (unknown) Result panel 987 (unknown) (no date) (unknown) [facility] (no value) (units unknown) (unknown) Result panel 988 (unknown) (no date) (unknown) [facility] (no value) (units unknown) (unknown) Result panel 989 (unknown) (no date) (unknown) [facility] (no value) (units unknown) (unknown) Result panel 990 (unknown) (no date) (unknown) [facility] (no value) (units unknown) (unknown) Result panel 991 (unknown) (no date) (unknown) [facility] (no value) (units unknown) (unknown) Result panel 992 (unknown) (no date) (unknown) [facility] (no value) (units unknown) (unknown) Result panel 993 (unknown) (no date) (unknown) [facility] (no value) (units unknown) (unknown) Result panel 994 (unknown) (no date) (unknown) [facility] (no value) (units unknown) (unknown) Result panel 995 (unknown) (no date) (unknown) [facility] (no value) (units unknown) (unknown) Result panel 996 (unknown) (no date) (unknown) [facility] (no value) (units unknown) (unknown) Result panel 997 (unknown) (no date) (unknown) [facility] (no value) (units unknown) (unknown) Result panel 998 (unknown) (no date) (unknown) [facility] (no value) (units unknown) (unknown) Result panel 999 (unknown) (no date) (unknown) [facility] (no value) (units unknown) (unknown) Result panel 1000 (unknown) (no date) (unknown) [facility] (no value) (units unknown) (unknown) Result panel 1001 (unknown) (no date) (unknown) [facility] (no value) (units unknown) (unknown) Result panel 1002 (unknown) (no date) (unknown) [facility] (no value) (units unknown) (unknown) Result panel 1003 (unknown) (no date) (unknown) [facility] (no value) (units unknown) (unknown) Result panel 1004 (unknown) (no date) (unknown) [facility] (no value) (units unknown) (unknown) Result panel 1005 (unknown) (no date) (unknown) [facility] (no value) (units unknown) (unknown) Result panel 1006 (unknown) (no date) (unknown) [facility] (no value) (units unknown) (unknown) Result panel 1007 (unknown) (no date) (unknown) [facility] (no value) (units unknown) (unknown) Result panel 1008 (unknown) (no date) (unknown) [facility] (no value) (units unknown) (unknown) Result panel 1009 (unknown) (no date) (unknown) [facility] (no value) (units unknown) (unknown) Result panel 1010 (unknown) (no date) (unknown) [facility] (no value) (units unknown) (unknown) Result panel 1011 (unknown) (no date) (unknown) [facility] (no value) (units unknown) (unknown) Result panel 1012 (unknown) (no date) (unknown) [facility] (no value) (units unknown) (unknown) Result panel 1013 (unknown) (no date) (unknown) [facility] (no value) (units unknown) (unknown) Result panel 1014 (unknown) (no date) (unknown) [facility] (no value) (units unknown) (unknown) Result panel 1015 (unknown) (no date) (unknown) [facility] (no value) (units unknown) (unknown) Result panel 1016 (unknown) (no date) (unknown) [facility] (no value) (units unknown) (unknown) Result panel 1017 (unknown) (no date) (unknown) [facility] (no value) (units unknown) (unknown) Result panel 1018 (unknown) (no date) (unknown) [facility] (no value) (units unknown) (unknown) Result panel 1019 (unknown) (no date) (unknown) [facility] (no value) (units unknown) (unknown) Result panel 1020 (unknown) (no date) (unknown) [facility] (no value) (units unknown) (unknown) Result panel 1021 (unknown) (no date) (unknown) [facility] (no value) (units unknown) (unknown) Result panel 1022 (unknown) (no date) (unknown) [facility] (no value) (units unknown) (unknown) Result panel 1023 (unknown) (no date) (unknown) [facility] (no value) (units unknown) (unknown) Result panel 1024 (unknown) (no date) (unknown) [facility] (no value) (units unknown) (unknown) Result panel 1025 (unknown) (no date) (unknown) [facility] (no value) (units unknown) (unknown) Result panel 1026 (unknown) (no date) (unknown) [facility] (no value) (units unknown) (unknown) Result panel 1027 (unknown) (no date) (unknown) [facility] (no value) (units unknown) (unknown) Result panel 1028 (unknown) (no date) (unknown) [facility] (no value) (units unknown) (unknown) Result panel 1029 (unknown) (no date) (unknown) [facility] (no value) (units unknown) (unknown) Result panel 1030 (unknown) (no date) (unknown) [facility] (no value) (units unknown) (unknown) Result panel 1031 (unknown) (no date) (unknown) [facility] (no value) (units unknown) (unknown) Result panel 1032 (unknown) (no date) (unknown) [facility] (no value) (units unknown) (unknown) Result panel 1033 (unknown) (no date) (unknown) [facility] (no value) (units unknown) (unknown) Result panel 1034 (unknown) (no date) (unknown) [facility] (no value) (units unknown) (unknown) Result panel 1035 (unknown) (no date) (unknown) [facility] (no value) (units unknown) (unknown) Result panel 1036 (unknown) (no date) (unknown) [facility] (no value) (units unknown) (unknown) Result panel 1037 (unknown) (no date) (unknown) [facility] (no value) (units unknown) (unknown) Result panel 1038 (unknown) (no date) (unknown) [facility] (no value) (units unknown) (unknown) Result panel 1039 (unknown) (no date) (unknown) [facility] (no value) (units unknown) (unknown) Result panel 1040 (unknown) (no date) (unknown) [facility] (no value) (units unknown) (unknown) Result panel 1041 (unknown) (no date) (unknown) [facility] (no value) (units unknown) (unknown) Result panel 1042 (unknown) (no date) (unknown) [facility] (no value) (units unknown) (unknown) Result panel 1043 (unknown) (no date) (unknown) [facility] (no value) (units unknown) (unknown) Result panel 1044 (unknown) (no date) (unknown) [facility] (no value) (units unknown) (unknown) Result panel 1045 (unknown) (no date) (unknown) [facility] (no value) (units unknown) (unknown) Result panel 1046 (unknown) (no date) (unknown) [facility] (no value) (units unknown) (unknown) Result panel 1047 (unknown) (no date) (unknown) [facility] (no value) (units unknown) (unknown) Result panel 1048 (unknown) (no date) (unknown) [facility] (no value) (units unknown) (unknown) Result panel 1049 (unknown) (no date) (unknown) [facility] (no value) (units unknown) (unknown) Result panel 1050 (unknown) (no date) (unknown) [facility] (no value) (units unknown) (unknown) Result panel 1051 (unknown) (no date) (unknown) [facility] (no value) (units unknown) (unknown) Result panel 1052 (unknown) (no date) (unknown) [facility] (no value) (units unknown) (unknown) Result panel 1053 (unknown) (no date) (unknown) [facility] (no value) (units unknown) (unknown) Result panel 1054 (unknown) (no date) (unknown) [facility] (no value) (units unknown) (unknown) Result panel 1055 (unknown) (no date) (unknown) [facility] (no value) (units unknown) (unknown) Result panel 1056 (unknown) (no date) (unknown) [facility] (no value) (units unknown) (unknown) Result panel 1057 (unknown) (no date) (unknown) [facility] (no value) (units unknown) (unknown) Result panel 1058 (unknown) (no date) (unknown) [facility] (no value) (units unknown) (unknown) Result panel 1059 (unknown) (no date) (unknown) [facility] (no value) (units unknown) (unknown) Result panel 1060 (unknown) (no date) (unknown) [facility] (no value) (units unknown) (unknown) Result panel 1061 (unknown) (no date) (unknown) [facility] (no value) (units unknown) (unknown) Result panel 1062 (unknown) (no date) (unknown) [facility] (no value) (units unknown) (unknown) Result panel 1063 (unknown) (no date) (unknown) [facility] (no value) (units unknown) (unknown) Result panel 1064 (unknown) (no date) (unknown) [facility] (no value) (units unknown) (unknown) Result panel 1065 (unknown) (no date) (unknown) [facility] (no value) (units unknown) (unknown) Result panel 1066 (unknown) (no date) (unknown) [facility] (no value) (units unknown) (unknown) Result panel 1067 (unknown) (no date) (unknown) [facility] (no value) (units unknown) (unknown) Result panel 1068 (unknown) (no date) (unknown) [facility] (no value) (units unknown) (unknown) Result panel 1069 (unknown) (no date) (unknown) [facility] (no value) (units unknown) (unknown) Result panel 1070 (unknown) (no date) (unknown) [facility] (no value) (units unknown) (unknown) Result panel 1071 (unknown) (no date) (unknown) [facility] (no value) (units unknown) (unknown) Result panel 1072 (unknown) (no date) (unknown) [facility] (no value) (units unknown) (unknown) Result panel 1073 (unknown) (no date) (unknown) [facility] (no value) (units unknown) (unknown) Result panel 1074 (unknown) (no date) (unknown) [facility] (no value) (units unknown) (unknown) Result panel 1075 (unknown) (no date) (unknown) [facility] (no value) (units unknown) (unknown) Result panel 1076 (unknown) (no date) (unknown) [facility] (no value) (units unknown) (unknown) Result panel 1077 (unknown) (no date) (unknown) [facility] (no value) (units unknown) (unknown) Result panel 1078 (unknown) (no date) (unknown) [facility] (no value) (units unknown) (unknown) Result panel 1079 (unknown) (no date) (unknown) [facility] (no value) (units unknown) (unknown) Result panel 1080 (unknown) (no date) (unknown) [facility] (no value) (units unknown) (unknown) Result panel 1081 (unknown) (no date) (unknown) [facility] (no value) (units unknown) (unknown) Result panel 1082 (unknown) (no date) (unknown) [facility] (no value) (units unknown) (unknown) Result panel 1083 (unknown) (no date) (unknown) [facility] (no value) (units unknown) (unknown) Result panel 1084 (unknown) (no date) (unknown) [facility] (no value) (units unknown) (unknown) Result panel 1085 (unknown) (no date) (unknown) [facility] (no value) (units unknown) (unknown) Result panel 1086 (unknown) (no date) (unknown) [facility] (no value) (units unknown) (unknown) Result panel 1087 (unknown) (no date) (unknown) [facility] (no value) (units unknown) (unknown) Result panel 1088 (unknown) (no date) (unknown) [facility] (no value) (units unknown) (unknown) Result panel 1089 (unknown) (no date) (unknown) [facility] (no value) (units unknown) (unknown) Result panel 1090 (unknown) (no date) (unknown) [facility] (no value) (units unknown) (unknown) Result panel 1091 (unknown) (no date) (unknown) [facility] (no value) (units unknown) (unknown) Result panel 1092 (unknown) (no date) (unknown) [facility] (no value) (units unknown) (unknown) Result panel 1093 (unknown) (no date) (unknown) [facility] (no value) (units unknown) (unknown) Result panel 1094 (unknown) (no date) (unknown) [facility] (no value) (units unknown) (unknown) Result panel 1095 (unknown) (no date) (unknown) [facility] (no value) (units unknown) (unknown) Result panel 1096 (unknown) (no date) (unknown) [facility] (no value) (units unknown) (unknown) Result panel 1097 (unknown) (no date) (unknown) [facility] (no value) (units unknown) (unknown) Result panel 1098 (unknown) (no date) (unknown) [facility] (no value) (units unknown) (unknown) Result panel 1099 (unknown) (no date) (unknown) [facility] (no value) (units unknown) (unknown) Result panel 1100 (unknown) (no date) (unknown) [facility] (no value) (units unknown) (unknown) Result panel 1101 (unknown) (no date) (unknown) [facility] (no value) (units unknown) (unknown) Result panel 1102 (unknown) (no date) (unknown) [facility] (no value) (units unknown) (unknown) Result panel 1103 (unknown) (no date) (unknown) [facility] (no value) (units unknown) (unknown) Result panel 1104 (unknown) (no date) (unknown) [facility] (no value) (units unknown) (unknown) Result panel 1105 (unknown) (no date) (unknown) [facility] (no value) (units unknown) (unknown) Result panel 1106 (unknown) (no date) (unknown) [facility] (no value) (units unknown) (unknown) Result panel 1107 (unknown) (no date) (unknown) [facility] (no value) (units unknown) (unknown) Result panel 1108 (unknown) (no date) (unknown) [facility] (no value) (units unknown) (unknown) Result panel 1109 (unknown) (no date) (unknown) [facility] (no value) (units unknown) (unknown) Result panel 1110 (unknown) (no date) (unknown) [facility] (no value) (units unknown) (unknown) Result panel 1111 (unknown) (no date) (unknown) [facility] (no value) (units unknown) (unknown) Result panel 1112 (unknown) (no date) (unknown) [facility] (no value) (units unknown) (unknown) Result panel 1113 (unknown) (no date) (unknown) [facility] (no value) (units unknown) (unknown) Result panel 1114 (unknown) (no date) (unknown) [facility] (no value) (units unknown) (unknown) Result panel 1115 (unknown) (no date) (unknown) [facility] (no value) (units unknown) (unknown) Result panel 1116 (unknown) (no date) (unknown) [facility] (no value) (units unknown) (unknown) Result panel 1117 (unknown) (no date) (unknown) [facility] (no value) (units unknown) (unknown) Result panel 1118 (unknown) (no date) (unknown) [facility] (no value) (units unknown) (unknown) Result panel 1119 (unknown) (no date) (unknown) [facility] (no value) (units unknown) (unknown) Result panel 1120 (unknown) (no date) (unknown) [facility] (no value) (units unknown) (unknown) Result panel 1121 (unknown) (no date) (unknown) [facility] (no value) (units unknown) (unknown) Result panel 1122 (unknown) (no date) (unknown) [facility] (no value) (units unknown) (unknown) Result panel 1123 (unknown) (no date) (unknown) [facility] (no value) (units unknown) (unknown) Result panel 1124 (unknown) (no date) (unknown) [facility] (no value) (units unknown) (unknown) Result panel 1125 (unknown) (no date) (unknown) [facility] (no value) (units unknown) (unknown) Result panel 1126 (unknown) (no date) (unknown) [facility] (no value) (units unknown) (unknown) Result panel 1127 (unknown) (no date) (unknown) [facility] (no value) (units unknown) (unknown) Result panel 1128 (unknown) (no date) (unknown) [facility] (no value) (units unknown) (unknown) Result panel 1129 (unknown) (no date) (unknown) [facility] (no value) (units unknown) (unknown) Result panel 1130 (unknown) (no date) (unknown) [facility] (no value) (units unknown) (unknown) Result panel 1131 (unknown) (no date) (unknown) [facility] (no value) (units unknown) (unknown) Result panel 1132 (unknown) (no date) (unknown) [facility] (no value) (units unknown) (unknown) Result panel 1133 (unknown) (no date) (unknown) [facility] (no value) (units unknown) (unknown) Result panel 1134 (unknown) (no date) (unknown) [facility] (no value) (units unknown) (unknown) Result panel 1135 (unknown) (no date) (unknown) [facility] (no value) (units unknown) (unknown) Result panel 1136 (unknown) (no date) (unknown) [facility] (no value) (units unknown) (unknown) Result panel 1137 (unknown) (no date) (unknown) [facility] (no value) (units unknown) (unknown) Result panel 1138 (unknown) (no date) (unknown) [facility] (no value) (units unknown) (unknown) Result panel 1139 (unknown) (no date) (unknown) [facility] (no value) (units unknown) (unknown) Result panel 1140 (unknown) (no date) (unknown) [facility] (no value) (units unknown) (unknown) Result panel 1141 (unknown) (no date) (unknown) [facility] (no value) (units unknown) (unknown) Result panel 1142 (unknown) (no date) (unknown) [facility] (no value) (units unknown) (unknown) Result panel 1143 (unknown) (no date) (unknown) [facility] (no value) (units unknown) (unknown) Result panel 1144 (unknown) (no date) (unknown) [facility] (no value) (units unknown) (unknown) Result panel 1145 (unknown) (no date) (unknown) [facility] (no value) (units unknown) (unknown) Result panel 1146 (unknown) (no date) (unknown) [facility] (no value) (units unknown) (unknown) Result panel 1147 (unknown) (no date) (unknown) [facility] (no value) (units unknown) (unknown) Result panel 1148 (unknown) (no date) (unknown) [facility] (no value) (units unknown) (unknown) Result panel 1149 (unknown) (no date) (unknown) [facility] (no value) (units unknown) (unknown) Result panel 1150 (unknown) (no date) (unknown) [facility] (no value) (units unknown) (unknown) Result panel 1151 (unknown) (no date) (unknown) [facility] (no value) (units unknown) (unknown) Result panel 1152 (unknown) (no date) (unknown) [facility] (no value) (units unknown) (unknown) Result panel 1153 (unknown) (no date) (unknown) [facility] (no value) (units unknown) (unknown) Result panel 1154 (unknown) (no date) (unknown) [facility] (no value) (units unknown) (unknown) Result panel 1155 (unknown) (no date) (unknown) [facility] (no value) (units unknown) (unknown) Result panel 1156 (unknown) (no date) (unknown) [facility] (no value) (units unknown) (unknown) Result panel 1157 (unknown) (no date) (unknown) [facility] (no value) (units unknown) (unknown) Result panel 1158 (unknown) (no date) (unknown) [facility] (no value) (units unknown) (unknown) Result panel 1159 (unknown) (no date) (unknown) [facility] (no value) (units unknown) (unknown) Result panel 1160 (unknown) (no date) (unknown) [facility] (no value) (units unknown) (unknown) Result panel 1161 (unknown) (no date) (unknown) [facility] (no value) (units unknown) (unknown) Result panel 1162 (unknown) (no date) (unknown) [facility] (no value) (units unknown) (unknown) Result panel 1163 (unknown) (no date) (unknown) [facility] (no value) (units unknown) (unknown) Result panel 1164 (unknown) (no date) (unknown) [facility] (no value) (units unknown) (unknown) Result panel 1165 (unknown) (no date) (unknown) [facility] (no value) (units unknown) (unknown) Result panel 1166 (unknown) (no date) (unknown) [facility] (no value) (units unknown) (unknown) Result panel 1167 (unknown) (no date) (unknown) [facility] (no value) (units unknown) (unknown) Result panel 1168 (unknown) (no date) (unknown) [facility] (no value) (units unknown) (unknown) Result panel 1169 (unknown) (no date) (unknown) [facility] (no value) (units unknown) (unknown) Result panel 1170 (unknown) (no date) (unknown) [facility] (no value) (units unknown) (unknown) Result panel 1171 (unknown) (no date) (unknown) [facility] (no value) (units unknown) (unknown) Result panel 1172 (unknown) (no date) (unknown) [facility] (no value) (units unknown) (unknown) Result panel 1173 (unknown) (no date) (unknown) [facility] (no value) (units unknown) (unknown) Result panel 1174 (unknown) (no date) (unknown) [facility] (no value) (units unknown) (unknown) Result panel 1175 (unknown) (no date) (unknown) [facility] (no value) (units unknown) (unknown) Result panel 1176 (unknown) (no date) (unknown) [facility] (no value) (units unknown) (unknown) Result panel 1177 (unknown) (no date) (unknown) [facility] (no value) (units unknown) (unknown) Result panel 1178 (unknown) (no date) (unknown) [facility] (no value) (units unknown) (unknown) Result panel 1179 (unknown) (no date) (unknown) [facility] (no value) (units unknown) (unknown) Result panel 1180 (unknown) (no date) (unknown) [facility] (no value) (units unknown) (unknown) Result panel 1181 (unknown) (no date) (unknown) [facility] (no value) (units unknown) (unknown) Result panel 1182 (unknown) (no date) (unknown) [facility] (no value) (units unknown) (unknown) Result panel 1183 (unknown) (no date) (unknown) [facility] (no value) (units unknown) (unknown) Result panel 1184 (unknown) (no date) (unknown) [facility] (no value) (units unknown) (unknown) Result panel 1185 (unknown) (no date) (unknown) [facility] (no value) (units unknown) (unknown) Result panel 1186 (unknown) (no date) (unknown) [facility] (no value) (units unknown) (unknown) Result panel 1187 (unknown) (no date) (unknown) [facility] (no value) (units unknown) (unknown) Result panel 1188 (unknown) (no date) (unknown) [facility] (no value) (units unknown) (unknown) Result panel 1189 (unknown) (no date) (unknown) [facility] (no value) (units unknown) (unknown) Result panel 1190 (unknown) (no date) (unknown) [facility] (no value) (units unknown) (unknown) Result panel 1191 (unknown) (no date) (unknown) [facility] (no value) (units unknown) (unknown) Result panel 1192 (unknown) (no date) (unknown) [facility] (no value) (units unknown) (unknown) Result panel 1193 (unknown) (no date) (unknown) [facility] (no value) (units unknown) (unknown) Result panel 1194 (unknown) (no date) (unknown) [facility] (no value) (units unknown) (unknown) Result panel 1195 (unknown) (no date) (unknown) [facility] (no value) (units unknown) (unknown) Result panel 1196 (unknown) (no date) (unknown) [facility] (no value) (units unknown) (unknown) Result panel 1197 (unknown) (no date) (unknown) [facility] (no value) (units unknown) (unknown) Result panel 1198 (unknown) (no date) (unknown) [facility] (no value) (units unknown) (unknown) Result panel 1199 (unknown) (no date) (unknown) [facility] (no value) (units unknown) (unknown) Result panel 1200 (unknown) (no date) (unknown) [facility] (no value) (units unknown) (unknown) Result panel 1201 (unknown) (no date) (unknown) [facility] (no value) (units unknown) (unknown) Result panel 1202 (unknown) (no date) (unknown) [facility] (no value) (units unknown) (unknown) Result panel 1203 (unknown) (no date) (unknown) [facility] (no value) (units unknown) (unknown) Result panel 1204 (unknown) (no date) (unknown) [facility] (no value) (units unknown) (unknown) Result panel 1205 (unknown) (no date) (unknown) [facility] (no value) (units unknown) (unknown) Result panel 1206 (unknown) (no date) (unknown) [facility] (no value) (units unknown) (unknown) Result panel 1207 (unknown) (no date) (unknown) [facility] (no value) (units unknown) (unknown) Result panel 1208 (unknown) (no date) (unknown) [facility] (no value) (units unknown) (unknown) Result panel 1209 (unknown) (no date) (unknown) [facility] (no value) (units unknown) (unknown) Result panel 1210 (unknown) (no date) (unknown) [facility] (no value) (units unknown) (unknown) Result panel 1211 (unknown) (no date) (unknown) [facility] (no value) (units unknown) (unknown) Result panel 1212 (unknown) (no date) (unknown) [facility] (no value) (units unknown) (unknown) Result panel 1213 (unknown) (no date) (unknown) [facility] (no value) (units unknown) (unknown) Result panel 1214 (unknown) (no date) (unknown) [facility] (no value) (units unknown) (unknown) Result panel 1215 (unknown) (no date) (unknown) [facility] (no value) (units unknown) (unknown) Result panel 1216 (unknown) (no date) (unknown) [facility] (no value) (units unknown) (unknown) Result panel 1217 (unknown) (no date) (unknown) [facility] (no value) (units unknown) (unknown) Result panel 1218 (unknown) (no date) (unknown) [facility] (no value) (units unknown) (unknown) Result panel 1219 (unknown) (no date) (unknown) [facility] (no value) (units unknown) (unknown) Result panel 1220 (unknown) (no date) (unknown) [facility] (no value) (units unknown) (unknown) Result panel 1221 (unknown) (no date) (unknown) [facility] (no value) (units unknown) (unknown) Result panel 1222 (unknown) (no date) (unknown) [facility] (no value) (units unknown) (unknown) Result panel 1223 (unknown) (no date) (unknown) [facility] (no value) (units unknown) (unknown) Result panel 1224 (unknown) (no date) (unknown) [facility] (no value) (units unknown) (unknown) Result panel 1225 (unknown) (no date) (unknown) [facility] (no value) (units unknown) (unknown) Result panel 1226 (unknown) (no date) (unknown) [facility] (no value) (units unknown) (unknown) Result panel 1227 (unknown) (no date) (unknown) [facility] (no value) (units unknown) (unknown) Result panel 1228 (unknown) (no date) (unknown) [facility] (no value) (units unknown) (unknown) Result panel 1229 (unknown) (no date) (unknown) [facility] (no value) (units unknown) (unknown) Result panel 1230 (unknown) (no date) (unknown) [facility] (no value) (units unknown) (unknown) Result panel 1231 (unknown) (no date) (unknown) [facility] (no value) (units unknown) (unknown) Result panel 1232 (unknown) (no date) (unknown) [facility] (no value) (units unknown) (unknown) Result panel 1233 (unknown) (no date) (unknown) [facility] (no value) (units unknown) (unknown) Result panel 1234 (unknown) (no date) (unknown) [facility] (no value) (units unknown) (unknown) Result panel 1235 (unknown) (no date) (unknown) [facility] (no value) (units unknown) (unknown) Result panel 1236 (unknown) (no date) (unknown) [facility] (no value) (units unknown) (unknown) Result panel 1237 (unknown) (no date) (unknown) [facility] (no value) (units unknown) (unknown) Result panel 1238 (unknown) (no date) (unknown) [facility] (no value) (units unknown) (unknown) Result panel 1239 (unknown) (no date) (unknown) [facility] (no value) (units unknown) (unknown) Result panel 1240 (unknown) (no date) (unknown) [facility] (no value) (units unknown) (unknown) Result panel 1241 (unknown) (no date) (unknown) [facility] (no value) (units unknown) (unknown) Result panel 1242 (unknown) (no date) (unknown) [facility] (no value) (units unknown) (unknown) Result panel 1243 (unknown) (no date) (unknown) [facility] (no value) (units unknown) (unknown) Result panel 1244 (unknown) (no date) (unknown) [facility] (no value) (units unknown) (unknown) Result panel 1245 (unknown) (no date) (unknown) [facility] (no value) (units unknown) (unknown) Result panel 1246 (unknown) (no date) (unknown) [facility] (no value) (units unknown) (unknown) Result panel 1247 (unknown) (no date) (unknown) [facility] (no value) (units unknown) (unknown) Result panel 1248 (unknown) (no date) (unknown) [facility] (no value) (units unknown) (unknown) Result panel 1249 (unknown) (no date) (unknown) [facility] (no value) (units unknown) (unknown) Result panel 1250 (unknown) (no date) (unknown) [facility] (no value) (units unknown) (unknown) Result panel 1251 (unknown) (no date) (unknown) [facility] (no value) (units unknown) (unknown) Result panel 1252 (unknown) (no date) (unknown) [facility] (no value) (units unknown) (unknown) Result panel 1253 (unknown) (no date) (unknown) [facility] (no value) (units unknown) (unknown) Result panel 1254 (unknown) (no date) (unknown) [facility] (no value) (units unknown) (unknown) Result panel 1255 (unknown) (no date) (unknown) [facility] (no value) (units unknown) (unknown) Result panel 1256 (unknown) (no date) (unknown) [facility] (no value) (units unknown) (unknown) Result panel 1257 (unknown) (no date) (unknown) [facility] (no value) (units unknown) (unknown) Result panel 1258 (unknown) (no date) (unknown) [facility] (no value) (units unknown) (unknown) Result panel 1259 (unknown) (no date) (unknown) [facility] (no value) (units unknown) (unknown) Result panel 1260 (unknown) (no date) (unknown) [facility] (no value) (units unknown) (unknown) Result panel 1261 (unknown) (no date) (unknown) [facility] (no value) (units unknown) (unknown) Result panel 1262 (unknown) (no date) (unknown) [facility] (no value) (units unknown) (unknown) Result panel 1263 (unknown) (no date) (unknown) [facility] (no value) (units unknown) (unknown) Result panel 1264 (unknown) (no date) (unknown) [facility] (no value) (units unknown) (unknown) Result panel 1265 (unknown) (no date) (unknown) [facility] (no value) (units unknown) (unknown) Result panel 1266 (unknown) (no date) (unknown) [facility] (no value) (units unknown) (unknown) Result panel 1267 (unknown) (no date) (unknown) [facility] (no value) (units unknown) (unknown) Result panel 1268 (unknown) (no date) (unknown) [facility] (no value) (units unknown) (unknown) Result panel 1269 (unknown) (no date) (unknown) [facility] (no value) (units unknown) (unknown) Result panel 1270 (unknown) (no date) (unknown) [facility] (no value) (units unknown) (unknown) Result panel 1271 (unknown) (no date) (unknown) [facility] (no value) (units unknown) (unknown) Result panel 1272 (unknown) (no date) (unknown) [facility] (no value) (units unknown) (unknown) Result panel 1273 (unknown) (no date) (unknown) [facility] (no value) (units unknown) (unknown) Result panel 1274 (unknown) (no date) (unknown) [facility] (no value) (units unknown) (unknown) Result panel 1275 (unknown) (no date) (unknown) [facility] (no value) (units unknown) (unknown) Result panel 1276 (unknown) (no date) (unknown) [facility] (no value) (units unknown) (unknown) Result panel 1277 (unknown) (no date) (unknown) [facility] (no value) (units unknown) (unknown) Result panel 1278 (unknown) (no date) (unknown) [facility] (no value) (units unknown) (unknown) Result panel 1279 (unknown) (no date) (unknown) [facility] (no value) (units unknown) (unknown) Result panel 1280 (unknown) (no date) (unknown) [facility] (no value) (units unknown) (unknown) Result panel 1281 (unknown) (no date) (unknown) [facility] (no value) (units unknown) (unknown) Result panel 1282 (unknown) (no date) (unknown) [facility] (no value) (units unknown) (unknown) Result panel 1283 (unknown) (no date) (unknown) [facility] (no value) (units unknown) (unknown) Result panel 1284 (unknown) (no date) (unknown) [facility] (no value) (units unknown) (unknown) Result panel 1285 (unknown) (no date) (unknown) [facility] (no value) (units unknown) (unknown) Result panel 1286 (unknown) (no date) (unknown) [facility] (no value) (units unknown) (unknown) Result panel 1287 (unknown) (no date) (unknown) [facility] (no value) (units unknown) (unknown) Result panel 1288 (unknown) (no date) (unknown) [facility] (no value) (units unknown) (unknown) Result panel 1289 (unknown) (no date) (unknown) [facility] (no value) (units unknown) (unknown) Result panel 1290 (unknown) (no date) (unknown) [facility] (no value) (units unknown) (unknown) Result panel 1291 (unknown) (no date) (unknown) [facility] (no value) (units unknown) (unknown) Result panel 1292 (unknown) (no date) (unknown) [facility] (no value) (units unknown) (unknown) Result panel 1293 (unknown) (no date) (unknown) [facility] (no value) (units unknown) (unknown) Result panel 1294 (unknown) (no date) (unknown) [facility] (no value) (units unknown) (unknown) Result panel 1295 (unknown) (no date) (unknown) [facility] (no value) (units unknown) (unknown) Result panel 1296 (unknown) (no date) (unknown) [facility] (no value) (units unknown) (unknown) Result panel 1297 (unknown) (no date) (unknown) [facility] (no value) (units unknown) (unknown) Result panel 1298 (unknown) (no date) (unknown) [facility] (no value) (units unknown) (unknown) Result panel 1299 (unknown) (no date) (unknown) [facility] (no value) (units unknown) (unknown) Result panel 1300 (unknown) (no date) (unknown) [facility] (no value) (units unknown) (unknown) Result panel 1301 (unknown) (no date) (unknown) [facility] (no value) (units unknown) (unknown) Result panel 1302 (unknown) (no date) (unknown) [facility] (no value) (units unknown) (unknown) Result panel 1303 (unknown) (no date) (unknown) [facility] (no value) (units unknown) (unknown) Result panel 1304 (unknown) (no date) (unknown) [facility] (no value) (units unknown) (unknown) Result panel 1305 (unknown) (no date) (unknown) [facility] (no value) (units unknown) (unknown) Result panel 1306 (unknown) (no date) (unknown) [facility] (no value) (units unknown) (unknown) Result panel 1307 (unknown) (no date) (unknown) [facility] (no value) (units unknown) (unknown) Result panel 1308 (unknown) (no date) (unknown) [facility] (no value) (units unknown) (unknown) Result panel 1309 (unknown) (no date) (unknown) [facility] (no value) (units unknown) (unknown) Result panel 1310 (unknown) (no date) (unknown) [facility] (no value) (units unknown) (unknown) Result panel 1311 (unknown) (no date) (unknown) [facility] (no value) (units unknown) (unknown) Result panel 1312 (unknown) (no date) (unknown) [facility] (no value) (units unknown) (unknown) Result panel 1313 (unknown) (no date) (unknown) [facility] (no value) (units unknown) (unknown) Result panel 1314 (unknown) (no date) (unknown) [facility] (no value) (units unknown) (unknown) Result panel 1315 (unknown) (no date) (unknown) [facility] (no value) (units unknown) (unknown) Result panel 1316 (unknown) (no date) (unknown) [facility] (no value) (units unknown) (unknown) Result panel 1317 (unknown) (no date) (unknown) [facility] (no value) (units unknown) (unknown) Result panel 1318 (unknown) (no date) (unknown) [facility] (no value) (units unknown) (unknown) Result panel 1319 (unknown) (no date) (unknown) [facility] (no value) (units unknown) (unknown) Result panel 1320 (unknown) (no date) (unknown) [facility] (no value) (units unknown) (unknown) Result panel 1321 (unknown) (no date) (unknown) [facility] (no value) (units unknown) (unknown) Result panel 1322 (unknown) (no date) (unknown) [facility] (no value) (units unknown) (unknown) Result panel 1323 (unknown) (no date) (unknown) [facility] (no value) (units unknown) (unknown) Result panel 1324 (unknown) (no date) (unknown) [facility] (no value) (units unknown) (unknown) Result panel 1325 (unknown) (no date) (unknown) [facility] (no value) (units unknown) (unknown) Result panel 1326 (unknown) (no date) (unknown) [facility] (no value) (units unknown) (unknown) Result panel 1327 (unknown) (no date) (unknown) [facility] (no value) (units unknown) (unknown) Result panel 1328 (unknown) (no date) (unknown) [facility] (no value) (units unknown) (unknown) Result panel 1329 (unknown) (no date) (unknown) [facility] (no value) (units unknown) (unknown) Result panel 1330 (unknown) (no date) (unknown) [facility] (no value) (units unknown) (unknown) Result panel 1331 (unknown) (no date) (unknown) [facility] (no value) (units unknown) (unknown) Result panel 1332 (unknown) (no date) (unknown) [facility] (no value) (units unknown) (unknown) Result panel 1333 (unknown) (no date) (unknown) [facility] (no value) (units unknown) (unknown) Result panel 1334 (unknown) (no date) (unknown) [facility] (no value) (units unknown) (unknown) Result panel 1335 (unknown) (no date) (unknown) [facility] (no value) (units unknown) (unknown) Result panel 1336 (unknown) (no date) (unknown) [facility] (no value) (units unknown) (unknown) Result panel 1337 (unknown) (no date) (unknown) [facility] (no value) (units unknown) (unknown) Result panel 1338 (unknown) (no date) (unknown) [facility] (no value) (units unknown) (unknown) Result panel 1339 (unknown) (no date) (unknown) [facility] (no value) (units unknown) (unknown) Result panel 1340 (unknown) (no date) (unknown) [facility] (no value) (units unknown) (unknown) Result panel 1341 (unknown) (no date) (unknown) [facility] (no value) (units unknown) (unknown) Result panel 1342 (unknown) (no date) (unknown) [facility] (no value) (units unknown) (unknown) Result panel 1343 (unknown) (no date) (unknown) [facility] (no value) (units unknown) (unknown) Result panel 1344 (unknown) (no date) (unknown) [facility] (no value) (units unknown) (unknown) Result panel 1345 (unknown) (no date) (unknown) [facility] (no value) (units unknown) (unknown) Result panel 1346 (unknown) (no date) (unknown) [facility] (no value) (units unknown) (unknown) Result panel 1347 (unknown) (no date) (unknown) [facility] (no value) (units unknown) (unknown) Result panel 1348 (unknown) (no date) (unknown) [facility] (no value) (units unknown) (unknown) Result panel 1349 (unknown) (no date) (unknown) [facility] (no value) (units unknown) (unknown) Result panel 1350 (unknown) (no date) (unknown) [facility] (no value) (units unknown) (unknown) Result panel 1351 (unknown) (no date) (unknown) [facility] (no value) (units unknown) (unknown) Result panel 1352 (unknown) (no date) (unknown) [facility] (no value) (units unknown) (unknown) Result panel 1353 (unknown) (no date) (unknown) [facility] (no value) (units unknown) (unknown) Result panel 1354 (unknown) (no date) (unknown) [facility] (no value) (units unknown) (unknown) Result panel 1355 (unknown) (no date) (unknown) [facility] (no value) (units unknown) (unknown) Result panel 1356 (unknown) (no date) (unknown) [facility] (no value) (units unknown) (unknown) Result panel 1357 (unknown) (no date) (unknown) [facility] (no value) (units unknown) (unknown) Result panel 1358 (unknown) (no date) (unknown) [facility] (no value) (units unknown) (unknown) Result panel 1359 (unknown) (no date) (unknown) [facility] (no value) (units unknown) (unknown) Result panel 1360 (unknown) (no date) (unknown) [facility] (no value) (units unknown) (unknown) Result panel 1361 (unknown) (no date) (unknown) [facility] (no value) (units unknown) (unknown) Result panel 1362 (unknown) (no date) (unknown) [facility] (no value) (units unknown) (unknown) Result panel 1363 (unknown) (no date) (unknown) [facility] (no value) (units unknown) (unknown) Result panel 1364 (unknown) (no date) (unknown) [facility] (no value) (units unknown) (unknown) Result panel 1365 (unknown) (no date) (unknown) [facility] (no value) (units unknown) (unknown) Result panel 1366 (unknown) (no date) (unknown) [facility] (no value) (units unknown) (unknown) Result panel 1367 (unknown) (no date) (unknown) [facility] (no value) (units unknown) (unknown) Result panel 1368 (unknown) (no date) (unknown) [facility] (no value) (units unknown) (unknown) Result panel 1369 (unknown) (no date) (unknown) [facility] (no value) (units unknown) (unknown) Result panel 1370 (unknown) (no date) (unknown) [facility] (no value) (units unknown) (unknown) Result panel 1371 (unknown) (no date) (unknown) [facility] (no value) (units unknown) (unknown) Result panel 1372 (unknown) (no date) (unknown) [facility] (no value) (units unknown) (unknown) Result panel 1373 (unknown) (no date) (unknown) [facility] (no value) (units unknown) (unknown) Result panel 1374 (unknown) (no date) (unknown) [facility] (no value) (units unknown) (unknown) Result panel 1375 (unknown) (no date) (unknown) [facility] (no value) (units unknown) (unknown) Result panel 1376 (unknown) (no date) (unknown) [facility] (no value) (units unknown) (unknown) Result panel 1377 (unknown) (no date) (unknown) [facility] (no value) (units unknown) (unknown) Result panel 1378 (unknown) (no date) (unknown) [facility] (no value) (units unknown) (unknown) Result panel 1379 (unknown) (no date) (unknown) [facility] (no value) (units unknown) (unknown) Result panel 1380 (unknown) (no date) (unknown) [facility] (no value) (units unknown) (unknown) Result panel 1381 (unknown) (no date) (unknown) [facility] (no value) (units unknown) (unknown) Result panel 1382 (unknown) (no date) (unknown) [facility] (no value) (units unknown) (unknown) Result panel 1383 (unknown) (no date) (unknown) [facility] (no value) (units unknown) (unknown) Result panel 1384 (unknown) (no date) (unknown) [facility] (no value) (units unknown) (unknown) Result panel 1385 (unknown) (no date) (unknown) [facility] (no value) (units unknown) (unknown) Result panel 1386 (unknown) (no date) (unknown) [facility] (no value) (units unknown) (unknown) Result panel 1387 (unknown) (no date) (unknown) [facility] (no value) (units unknown) (unknown) Result panel 1388 (unknown) (no date) (unknown) [facility] (no value) (units unknown) (unknown) Result panel 1389 (unknown) (no date) (unknown) [facility] (no value) (units unknown) (unknown) Result panel 1390 (unknown) (no date) (unknown) [facility] (no value) (units unknown) (unknown) Result panel 1391 (unknown) (no date) (unknown) [facility] (no value) (units unknown) (unknown) Result panel 1392 (unknown) (no date) (unknown) [facility] (no value) (units unknown) (unknown) Result panel 1393 (unknown) (no date) (unknown) [facility] (no value) (units unknown) (unknown) Result panel 1394 (unknown) (no date) (unknown) [facility] (no value) (units unknown) (unknown) Result panel 1395 (unknown) (no date) (unknown) [facility] (no value) (units unknown) (unknown) Result panel 1396 (unknown) (no date) (unknown) [facility] (no value) (units unknown) (unknown) Result panel 1397 (unknown) (no date) (unknown) [facility] (no value) (units unknown) (unknown) Result panel 1398 (unknown) (no date) (unknown) [facility] (no value) (units unknown) (unknown) Result panel 1399 (unknown) (no date) (unknown) [facility] (no value) (units unknown) (unknown) Result panel 1400 (unknown) (no date) (unknown) [facility] (no value) (units unknown) (unknown) Result panel 1401 (unknown) (no date) (unknown) [facility] (no value) (units unknown) (unknown) Result panel 1402 (unknown) (no date) (unknown) [facility] (no value) (units unknown) (unknown) Result panel 1403 (unknown) (no date) (unknown) [facility] (no value) (units unknown) (unknown) Result panel 1404 (unknown) (no date) (unknown) [facility] (no value) (units unknown) (unknown) Result panel 1405 (unknown) (no date) (unknown) [facility] (no value) (units unknown) (unknown) Result panel 1406 (unknown) (no date) (unknown) [facility] (no value) (units unknown) (unknown) Result panel 1407 (unknown) (no date) (unknown) [facility] (no value) (units unknown) (unknown) Result panel 1408 (unknown) (no date) (unknown) [facility] (no value) (units unknown) (unknown) Result panel 1409 (unknown) (no date) (unknown) [facility] (no value) (units unknown) (unknown) Result panel 1410 (unknown) (no date) (unknown) [facility] (no value) (units unknown) (unknown) Result panel 1411 (unknown) (no date) (unknown) [facility] (no value) (units unknown) (unknown) Result panel 1412 (unknown) (no date) (unknown) [facility] (no value) (units unknown) (unknown) Result panel 1413 (unknown) (no date) (unknown) [facility] (no value) (units unknown) (unknown) Result panel 1414 (unknown) (no date) (unknown) [facility] (no value) (units unknown) (unknown) Result panel 1415 (unknown) (no date) (unknown) [facility] (no value) (units unknown) (unknown) Result panel 1416 (unknown) (no date) (unknown) [facility] (no value) (units unknown) (unknown) Result panel 1417 (unknown) (no date) (unknown) [facility] (no value) (units unknown) (unknown) Result panel 1418 (unknown) (no date) (unknown) [facility] (no value) (units unknown) (unknown) Result panel 1419 (unknown) (no date) (unknown) [facility] (no value) (units unknown) (unknown) Result panel 1420 (unknown) (no date) (unknown) [facility] (no value) (units unknown) (unknown) Result panel 1421 (unknown) (no date) (unknown) [facility] (no value) (units unknown) (unknown) Result panel 1422 (unknown) (no date) (unknown) [facility] (no value) (units unknown) (unknown) Result panel 1423 (unknown) (no date) (unknown) [facility] (no value) (units unknown) (unknown) Result panel 1424 (unknown) (no date) (unknown) [facility] (no value) (units unknown) (unknown) Result panel 1425 (unknown) (no date) (unknown) [facility] (no value) (units unknown) (unknown) Result panel 1426 (unknown) (no date) (unknown) [facility] (no value) (units unknown) (unknown) Result panel 1427 (unknown) (no date) (unknown) [facility] (no value) (units unknown) (unknown) Result panel 1428 (unknown) (no date) (unknown) [facility] (no value) (units unknown) (unknown) Result panel 1429 (unknown) (no date) (unknown) [facility] (no value) (units unknown) (unknown) Result panel 1430 (unknown) (no date) (unknown) [facility] (no value) (units unknown) (unknown) Result panel 1431 (unknown) (no date) (unknown) [facility] (no value) (units unknown) (unknown) Result panel 1432 (unknown) (no date) (unknown) [facility] (no value) (units unknown) (unknown) Result panel 1433 (unknown) (no date) (unknown) [facility] (no value) (units unknown) (unknown) Result panel 1434 (unknown) (no date) (unknown) [facility] (no value) (units unknown) (unknown) Result panel 1435 (unknown) (no date) (unknown) [facility] (no value) (units unknown) (unknown) Result panel 1436 (unknown) (no date) (unknown) [facility] (no value) (units unknown) (unknown) Result panel 1437 (unknown) (no date) (unknown) [facility] (no value) (units unknown) (unknown) Result panel 1438 (unknown) (no date) (unknown) [facility] (no value) (units unknown) (unknown) Result panel 1439 (unknown) (no date) (unknown) [facility] (no value) (units unknown) (unknown) Result panel 1440 (unknown) (no date) (unknown) [facility] (no value) (units unknown) (unknown) Result panel 1441 (unknown) (no date) (unknown) [facility] (no value) (units unknown) (unknown) Result panel 1442 (unknown) (no date) (unknown) [facility] (no value) (units unknown) (unknown) Result panel 1443 (unknown) (no date) (unknown) [facility] (no value) (units unknown) (unknown) Result panel 1444 (unknown) (no date) (unknown) [facility] (no value) (units unknown) (unknown) Result panel 1445 (unknown) (no date) (unknown) [facility] (no value) (units unknown) (unknown) Result panel 1446 (unknown) (no date) (unknown) [facility] (no value) (units unknown) (unknown) Result panel 1447 (unknown) (no date) (unknown) [facility] (no value) (units unknown) (unknown) Result panel 1448 (unknown) (no date) (unknown) [facility] (no value) (units unknown) (unknown) Result panel 1449 (unknown) (no date) (unknown) [facility] (no value) (units unknown) (unknown) Result panel 1450 (unknown) (no date) (unknown) [facility] (no value) (units unknown) (unknown) Result panel 1451 (unknown) (no date) (unknown) [facility] (no value) (units unknown) (unknown) Result panel 1452 (unknown) (no date) (unknown) [facility] (no value) (units unknown) (unknown) Result panel 1453 (unknown) (no date) (unknown) [facility] (no value) (units unknown) (unknown) Result panel 1454 (unknown) (no date) (unknown) [facility] (no value) (units unknown) (unknown) Result panel 1455 (unknown) (no date) (unknown) [facility] (no value) (units unknown) (unknown) Result panel 1456 (unknown) (no date) (unknown) [facility] (no value) (units unknown) (unknown) Result panel 1457 (unknown) (no date) (unknown) [facility] (no value) (units unknown) (unknown) Result panel 1458 (unknown) (no date) (unknown) [facility] (no value) (units unknown) (unknown) Result panel 1459 (unknown) (no date) (unknown) [facility] (no value) (units unknown) (unknown) Result panel 1460 (unknown) (no date) (unknown) [facility] (no value) (units unknown) (unknown) Result panel 1461 (unknown) (no date) (unknown) [facility] (no value) (units unknown) (unknown) Result panel 1462 (unknown) (no date) (unknown) [facility] (no value) (units unknown) (unknown) Result panel 1463 (unknown) (no date) (unknown) [facility] (no value) (units unknown) (unknown) Result panel 1464 (unknown) (no date) (unknown) [facility] (no value) (units unknown) (unknown) Result panel 1465 (unknown) (no date) (unknown) [facility] (no value) (units unknown) (unknown) Result panel 1466 (unknown) (no date) (unknown) [facility] (no value) (units unknown) (unknown) Result panel 1467 (unknown) (no date) (unknown) [facility] (no value) (units unknown) (unknown) Result panel 1468 (unknown) (no date) (unknown) [facility] (no value) (units unknown) (unknown) Result panel 1469 (unknown) (no date) (unknown) [facility] (no value) (units unknown) (unknown) Result panel 1470 (unknown) (no date) (unknown) [facility] (no value) (units unknown) (unknown) Result panel 1471 (unknown) (no date) (unknown) [facility] (no value) (units unknown) (unknown) Result panel 1472 (unknown) (no date) (unknown) [facility] (no value) (units unknown) (unknown) Result panel 1473 (unknown) (no date) (unknown) [facility] (no value) (units unknown) (unknown) Result panel 1474 (unknown) (no date) (unknown) [facility] (no value) (units unknown) (unknown) Result panel 1475 (unknown) (no date) (unknown) [facility] (no value) (units unknown) (unknown) Result panel 1476 (unknown) (no date) (unknown) [facility] (no value) (units unknown) (unknown) Result panel 1477 (unknown) (no date) (unknown) [facility] (no value) (units unknown) (unknown) Result panel 1478 (unknown) (no date) (unknown) [facility] (no value) (units unknown) (unknown) Result panel 1479 (unknown) (no date) (unknown) [facility] (no value) (units unknown) (unknown) Result panel 1480 (unknown) (no date) (unknown) [facility] (no value) (units unknown) (unknown) Result panel 1481 (unknown) (no date) (unknown) [facility] (no value) (units unknown) (unknown) Result panel 1482 (unknown) (no date) (unknown) [facility] (no value) (units unknown) (unknown) Result panel 1483 (unknown) (no date) (unknown) [facility] (no value) (units unknown) (unknown) Result panel 1484 (unknown) (no date) (unknown) [facility] (no value) (units unknown) (unknown) Result panel 1485 (unknown) (no date) (unknown) [facility] (no value) (units unknown) (unknown) Result panel 1486 (unknown) (no date) (unknown) [facility] (no value) (units unknown) (unknown) Result panel 1487 (unknown) (no date) (unknown) [facility] (no value) (units unknown) (unknown) Result panel 1488 (unknown) (no date) (unknown) [facility] (no value) (units unknown) (unknown) Result panel 1489 (unknown) (no date) (unknown) [facility] (no value) (units unknown) (unknown) Result panel 1490 (unknown) (no date) (unknown) [facility] (no value) (units unknown) (unknown) Result panel 1491 (unknown) (no date) (unknown) [facility] (no value) (units unknown) (unknown) Result panel 1492 (unknown) (no date) (unknown) [facility] (no value) (units unknown) (unknown) Result panel 1493 (unknown) (no date) (unknown) [facility] (no value) (units unknown) (unknown) Result panel 1494 (unknown) (no date) (unknown) [facility] (no value) (units unknown) (unknown) Result panel 1495 (unknown) (no date) (unknown) [facility] (no value) (units unknown) (unknown) Result panel 1496 (unknown) (no date) (unknown) [facility] (no value) (units unknown) (unknown) Result panel 1497 (unknown) (no date) (unknown) [facility] (no value) (units unknown) (unknown) Result panel 1498 (unknown) (no date) (unknown) [facility] (no value) (units unknown) (unknown) Result panel 1499 (unknown) (no date) (unknown) [facility] (no value) (units unknown) (unknown) Result panel 1500 (unknown) (no date) (unknown) [facility] (no value) (units unknown) (unknown) Result panel 1501 (unknown) (no date) (unknown) [facility] (no value) (units unknown) (unknown) Result panel 1502 (unknown) (no date) (unknown) [facility] (no value) (units unknown) (unknown) Result panel 1503 (unknown) (no date) (unknown) [facility] (no value) (units unknown) (unknown) Result panel 1504 (unknown) (no date) (unknown) [facility] (no value) (units unknown) (unknown) Result panel 1505 (unknown) (no date) (unknown) [facility] (no value) (units unknown) (unknown) Result panel 1506 (unknown) (no date) (unknown) [facility] (no value) (units unknown) (unknown) Result panel 1507 (unknown) (no date) (unknown) [facility] (no value) (units unknown) (unknown) Result panel 1508 (unknown) (no date) (unknown) [facility] (no value) (units unknown) (unknown) Result panel 1509 (unknown) (no date) (unknown) [facility] (no value) (units unknown) (unknown) Result panel 1510 (unknown) (no date) (unknown) [facility] (no value) (units unknown) (unknown) Result panel 1511 (unknown) (no date) (unknown) [facility] (no value) (units unknown) (unknown) Result panel 1512 (unknown) (no date) (unknown) [facility] (no value) (units unknown) (unknown) Result panel 1513 (unknown) (no date) (unknown) [facility] (no value) (units unknown) (unknown) Result panel 1514 (unknown) (no date) (unknown) [facility] (no value) (units unknown) (unknown) Result panel 1515 (unknown) (no date) (unknown) [facility] (no value) (units unknown) (unknown) Result panel 1516 (unknown) (no date) (unknown) [facility] (no value) (units unknown) (unknown) Result panel 1517 (unknown) (no date) (unknown) [facility] (no value) (units unknown) (unknown) Result panel 1518 (unknown) (no date) (unknown) [facility] (no value) (units unknown) (unknown) Result panel 1519 (unknown) (no date) (unknown) [facility] (no value) (units unknown) (unknown) Result panel 1520 (unknown) (no date) (unknown) [facility] (no value) (units unknown) (unknown) Result panel 1521 (unknown) (no date) (unknown) [facility] (no value) (units unknown) (unknown) Result panel 1522 (unknown) (no date) (unknown) [facility] (no value) (units unknown) (unknown) Result panel 1523 (unknown) (no date) (unknown) [facility] (no value) (units unknown) (unknown) Result panel 1524 (unknown) (no date) (unknown) [facility] (no value) (units unknown) (unknown) Result panel 1525 (unknown) (no date) (unknown) [facility] (no value) (units unknown) (unknown) Result panel 1526 (unknown) (no date) (unknown) [facility] (no value) (units unknown) (unknown) Result panel 1527 (unknown) (no date) (unknown) [facility] (no value) (units unknown) (unknown) Result panel 1528 (unknown) (no date) (unknown) [facility] (no value) (units unknown) (unknown) Result panel 1529 (unknown) (no date) (unknown) [facility] (no value) (units unknown) (unknown) Result panel 1530 (unknown) (no date) (unknown) [facility] (no value) (units unknown) (unknown) Result panel 1531 (unknown) (no date) (unknown) [facility] (no value) (units unknown) (unknown) Result panel 1532 (unknown) (no date) (unknown) [facility] (no value) (units unknown) (unknown) Result panel 1533 (unknown) (no date) (unknown) [facility] (no value) (units unknown) (unknown) Result panel 1534 (unknown) (no date) (unknown) [facility] (no value) (units unknown) (unknown) Result panel 1535 (unknown) (no date) (unknown) [facility] (no value) (units unknown) (unknown) Result panel 1536 (unknown) (no date) (unknown) [facility] (no value) (units unknown) (unknown) Result panel 1537 (unknown) (no date) (unknown) [facility] (no value) (units unknown) (unknown) Result panel 1538 (unknown) (no date) (unknown) [facility] (no value) (units unknown) (unknown) Result panel 1539 (unknown) (no date) (unknown) [facility] (no value) (units unknown) (unknown) Result panel 1540 (unknown) (no date) (unknown) [facility] (no value) (units unknown) (unknown) Result panel 1541 (unknown) (no date) (unknown) [facility] (no value) (units unknown) (unknown) Result panel 1542 (unknown) (no date) (unknown) [facility] (no value) (units unknown) (unknown) Result panel 1543 (unknown) (no date) (unknown) [facility] (no value) (units unknown) (unknown) Result panel 1544 (unknown) (no date) (unknown) [facility] (no value) (units unknown) (unknown) Result panel 1545 (unknown) (no date) (unknown) [facility] (no value) (units unknown) (unknown) Result panel 1546 (unknown) (no date) (unknown) [facility] (no value) (units unknown) (unknown) Result panel 1547 (unknown) (no date) (unknown) [facility] (no value) (units unknown) (unknown) Result panel 1548 (unknown) (no date) (unknown) [facility] (no value) (units unknown) (unknown) Result panel 1549 (unknown) (no date) (unknown) [facility] (no value) (units unknown) (unknown) Result panel 1550 (unknown) (no date) (unknown) [facility] (no value) (units unknown) (unknown) Result panel 1551 (unknown) (no date) (unknown) [facility] (no value) (units unknown) (unknown) Result panel 1552 (unknown) (no date) (unknown) [facility] (no value) (units unknown) (unknown) Result panel 1553 (unknown) (no date) (unknown) [facility] (no value) (units unknown) (unknown) Result panel 1554 (unknown) (no date) (unknown) [facility] (no value) (units unknown) (unknown) Result panel 1555 (unknown) (no date) (unknown) [facility] (no value) (units unknown) (unknown) Result panel 1556 (unknown) (no date) (unknown) [facility] (no value) (units unknown) (unknown) Result panel 1557 (unknown) (no date) (unknown) [facility] (no value) (units unknown) (unknown) Result panel 1558 (unknown) (no date) (unknown) [facility] (no value) (units unknown) (unknown) Result panel 1559 (unknown) (no date) (unknown) [facility] (no value) (units unknown) (unknown) Result panel 1560 (unknown) (no date) (unknown) [facility] (no value) (units unknown) (unknown) Result panel 1561 (unknown) (no date) (unknown) [facility] (no value) (units unknown) (unknown) Result panel 1562 (unknown) (no date) (unknown) [facility] (no value) (units unknown) (unknown) Result panel 1563 (unknown) (no date) (unknown) [facility] (no value) (units unknown) (unknown) Result panel 1564 (unknown) (no date) (unknown) [facility] (no value) (units unknown) (unknown) Result panel 1565 (unknown) (no date) (unknown) [facility] (no value) (units unknown) (unknown) Result panel 1566 (unknown) (no date) (unknown) [facility] (no value) (units unknown) (unknown) Result panel 1567 (unknown) (no date) (unknown) [facility] (no value) (units unknown) (unknown) Result panel 1568 (unknown) (no date) (unknown) [facility] (no value) (units unknown) (unknown) Result panel 1569 (unknown) (no date) (unknown) [facility] (no value) (units unknown) (unknown) Result panel 1570 (unknown) (no date) (unknown) [facility] (no value) (units unknown) (unknown) Result panel 1571 (unknown) (no date) (unknown) [facility] (no value) (units unknown) (unknown) Result panel 1572 (unknown) (no date) (unknown) [facility] (no value) (units unknown) (unknown) Result panel 1573 (unknown) (no date) (unknown) [facility] (no value) (units unknown) (unknown) Result panel 1574 (unknown) (no date) (unknown) [facility] (no value) (units unknown) (unknown) Result panel 1575 (unknown) (no date) (unknown) [facility] (no value) (units unknown) (unknown) Result panel 1576 (unknown) (no date) (unknown) [facility] (no value) (units unknown) (unknown) Result panel 1577 (unknown) (no date) (unknown) [facility] (no value) (units unknown) (unknown) Result panel 1578 (unknown) (no date) (unknown) [facility] (no value) (units unknown) (unknown) Result panel 1579 (unknown) (no date) (unknown) [facility] (no value) (units unknown) (unknown) Result panel 1580 (unknown) (no date) (unknown) [facility] (no value) (units unknown) (unknown) Result panel 1581 (unknown) (no date) (unknown) [facility] (no value) (units unknown) (unknown) Result panel 1582 (unknown) (no date) (unknown) [facility] (no value) (units unknown) (unknown) Result panel 1583 (unknown) (no date) (unknown) [facility] (no value) (units unknown) (unknown) Result panel 1584 (unknown) (no date) (unknown) [facility] (no value) (units unknown) (unknown) Result panel 1585 (unknown) (no date) (unknown) [facility] (no value) (units unknown) (unknown) Result panel 1586 (unknown) (no date) (unknown) [facility] (no value) (units unknown) (unknown) Result panel 1587 (unknown) (no date) (unknown) [facility] (no value) (units unknown) (unknown) Result panel 1588 (unknown) (no date) (unknown) [facility] (no value) (units unknown) (unknown) Result panel 1589 (unknown) (no date) (unknown) [facility] (no value) (units unknown) (unknown) Result panel 1590 (unknown) (no date) (unknown) [facility] (no value) (units unknown) (unknown) Result panel 1591 (unknown) (no date) (unknown) [facility] (no value) (units unknown) (unknown) Result panel 1592 (unknown) (no date) (unknown) [facility] (no value) (units unknown) (unknown) Result panel 1593 (unknown) (no date) (unknown) [facility] (no value) (units unknown) (unknown) Result panel 1594 (unknown) (no date) (unknown) [facility] (no value) (units unknown) (unknown) Result panel 1595 (unknown) (no date) (unknown) [facility] (no value) (units unknown) (unknown) Result panel 1596 (unknown) (no date) (unknown) [facility] (no value) (units unknown) (unknown) Result panel 1597 (unknown) (no date) (unknown) [facility] (no value) (units unknown) (unknown) Result panel 1598 (unknown) (no date) (unknown) [facility] (no value) (units unknown) (unknown) Result panel 1599 (unknown) (no date) (unknown) [facility] (no value) (units unknown) (unknown) Result panel 1600 (unknown) (no date) (unknown) [facility] (no value) (units unknown) (unknown) Result panel 1601 (unknown) (no date) (unknown) [facility] (no value) (units unknown) (unknown) Result panel 1602 (unknown) (no date) (unknown) [facility] (no value) (units unknown) (unknown) Result panel 1603 (unknown) (no date) (unknown) [facility] (no value) (units unknown) (unknown) Result panel 1604 (unknown) (no date) (unknown) [facility] (no value) (units unknown) (unknown) Result panel 1605 (unknown) (no date) (unknown) [facility] (no value) (units unknown) (unknown) Result panel 1606 (unknown) (no date) (unknown) [facility] (no value) (units unknown) (unknown) Result panel 1607 (unknown) (no date) (unknown) [facility] (no value) (units unknown) (unknown) Result panel 1608 (unknown) (no date) (unknown) [facility] (no value) (units unknown) (unknown) Result panel 1609 (unknown) (no date) (unknown) [facility] (no value) (units unknown) (unknown) Result panel 1610 (unknown) (no date) (unknown) [facility] (no value) (units unknown) (unknown) Result panel 1611 (unknown) (no date) (unknown) [facility] (no value) (units unknown) (unknown) Result panel 1612 (unknown) (no date) (unknown) [facility] (no value) (units unknown) (unknown) Result panel 1613 (unknown) (no date) (unknown) [facility] (no value) (units unknown) (unknown) Result panel 1614 (unknown) (no date) (unknown) [facility] (no value) (units unknown) (unknown) Result panel 1615 (unknown) (no date) (unknown) [facility] (no value) (units unknown) (unknown) Result panel 1616 (unknown) (no date) (unknown) [facility] (no value) (units unknown) (unknown) Result panel 1617 (unknown) (no date) (unknown) [facility] (no value) (units unknown) (unknown) Result panel 1618 (unknown) (no date) (unknown) [facility] (no value) (units unknown) (unknown) Result panel 1619 (unknown) (no date) (unknown) [facility] (no value) (units unknown) (unknown) Result panel 1620 (unknown) (no date) (unknown) [facility] (no value) (units unknown) (unknown) Result panel 1621 (unknown) (no date) (unknown) [facility] (no value) (units unknown) (unknown) Result panel 1622 (unknown) (no date) (unknown) [facility] (no value) (units unknown) (unknown) Result panel 1623 (unknown) (no date) (unknown) [facility] (no value) (units unknown) (unknown) Result panel 1624 (unknown) (no date) (unknown) [facility] (no value) (units unknown) (unknown) Result panel 1625 (unknown) (no date) (unknown) [facility] (no value) (units unknown) (unknown) Result panel 1626 (unknown) (no date) (unknown) [facility] (no value) (units unknown) (unknown) Result panel 1627 (unknown) (no date) (unknown) [facility] (no value) (units unknown) (unknown) Result panel 1628 (unknown) (no date) (unknown) [facility] (no value) (units unknown) (unknown) Result panel 1629 (unknown) (no date) (unknown) [facility] (no value) (units unknown) (unknown) Result panel 1630 (unknown) (no date) (unknown) [facility] (no value) (units unknown) (unknown) Result panel 1631 (unknown) (no date) (unknown) [facility] (no value) (units unknown) (unknown) Result panel 1632 (unknown) (no date) (unknown) [facility] (no value) (units unknown) (unknown) Result panel 1633 (unknown) (no date) (unknown) [facility] (no value) (units unknown) (unknown) Result panel 1634 (unknown) (no date) (unknown) [facility] (no value) (units unknown) (unknown) Result panel 1635 (unknown) (no date) (unknown) [facility] (no value) (units unknown) (unknown) Result panel 1636 (unknown) (no date) (unknown) [facility] (no value) (units unknown) (unknown) Result panel 1637 (unknown) (no date) (unknown) [facility] (no value) (units unknown) (unknown) Result panel 1638 (unknown) (no date) (unknown) [facility] (no value) (units unknown) (unknown) Result panel 1639 (unknown) (no date) (unknown) [facility] (no value) (units unknown) (unknown) Result panel 1640 (unknown) (no date) (unknown) [facility] (no value) (units unknown) (unknown) Result panel 1641 (unknown) (no date) (unknown) [facility] (no value) (units unknown) (unknown) Result panel 1642 (unknown) (no date) (unknown) [facility] (no value) (units unknown) (unknown) Result panel 1643 (unknown) (no date) (unknown) [facility] (no value) (units unknown) (unknown) Result panel 1644 (unknown) (no date) (unknown) [facility] (no value) (units unknown) (unknown) Result panel 1645 (unknown) (no date) (unknown) [facility] (no value) (units unknown) (unknown) Result panel 1646 (unknown) (no date) (unknown) [facility] (no value) (units unknown) (unknown) Result panel 1647 (unknown) (no date) (unknown) [facility] (no value) (units unknown) (unknown) Result panel 1648 (unknown) (no date) (unknown) [facility] (no value) (units unknown) (unknown) Result panel 1649 (unknown) (no date) (unknown) [facility] (no value) (units unknown) (unknown) Result panel 1650 (unknown) (no date) (unknown) [facility] (no value) (units unknown) (unknown) Result panel 1651 (unknown) (no date) (unknown) [facility] (no value) (units unknown) (unknown) Result panel 1652 (unknown) (no date) (unknown) [facility] (no value) (units unknown) (unknown) Result panel 1653 (unknown) (no date) (unknown) [facility] (no value) (units unknown) (unknown) Result panel 1654 (unknown) (no date) (unknown) [facility] (no value) (units unknown) (unknown) Result panel 1655 (unknown) (no date) (unknown) [facility] (no value) (units unknown) (unknown) Result panel 1656 (unknown) (no date) (unknown) [facility] (no value) (units unknown) (unknown) Result panel 1657 (unknown) (no date) (unknown) [facility] (no value) (units unknown) (unknown) Result panel 1658 (unknown) (no date) (unknown) [facility] (no value) (units unknown) (unknown) Result panel 1659 (unknown) (no date) (unknown) [facility] (no value) (units unknown) (unknown) Result panel 1660 (unknown) (no date) (unknown) [facility] (no value) (units unknown) (unknown) Result panel 1661 (unknown) (no date) (unknown) [facility] (no value) (units unknown) (unknown) Result panel 1662 (unknown) (no date) (unknown) [facility] (no value) (units unknown) (unknown) Result panel 1663 (unknown) (no date) (unknown) [facility] (no value) (units unknown) (unknown) Result panel 1664 (unknown) (no date) (unknown) [facility] (no value) (units unknown) (unknown) Result panel 1665 (unknown) (no date) (unknown) [facility] (no value) (units unknown) (unknown) Result panel 1666 (unknown) (no date) (unknown) [facility] (no value) (units unknown) (unknown) Result panel 1667 (unknown) (no date) (unknown) [facility] (no value) (units unknown) (unknown) Result panel 1668 (unknown) (no date) (unknown) [facility] (no value) (units unknown) (unknown) Result panel 1669 (unknown) (no date) (unknown) [facility] (no value) (units unknown) (unknown) Result panel 1670 (unknown) (no date) (unknown) [facility] (no value) (units unknown) (unknown) Result panel 1671 (unknown) (no date) (unknown) [facility] (no value) (units unknown) (unknown) Result panel 1672 (unknown) (no date) (unknown) [facility] (no value) (units unknown) (unknown) Result panel 1673 (unknown) (no date) (unknown) [facility] (no value) (units unknown) (unknown) Result panel 1674 (unknown) (no date) (unknown) [facility] (no value) (units unknown) (unknown) Result panel 1675 (unknown) (no date) (unknown) [facility] (no value) (units unknown) (unknown) Result panel 1676 (unknown) (no date) (unknown) [facility] (no value) (units unknown) (unknown) Result panel 1677 (unknown) (no date) (unknown) [facility] (no value) (units unknown) (unknown) Result panel 1678 (unknown) (no date) (unknown) [facility] (no value) (units unknown) (unknown) Result panel 1679 (unknown) (no date) (unknown) [facility] (no value) (units unknown) (unknown) Result panel 1680 (unknown) (no date) (unknown) [facility] (no value) (units unknown) (unknown) Result panel 1681 (unknown) (no date) (unknown) [facility] (no value) (units unknown) (unknown) Result panel 1682 (unknown) (no date) (unknown) [facility] (no value) (units unknown) (unknown) Result panel 1683 (unknown) (no date) (unknown) [facility] (no value) (units unknown) (unknown) Result panel 1684 (unknown) (no date) (unknown) [facility] (no value) (units unknown) (unknown) Result panel 1685 (unknown) (no date) (unknown) [facility] (no value) (units unknown) (unknown) Result panel 1686 (unknown) (no date) (unknown) [facility] (no value) (units unknown) (unknown) Result panel 1687 (unknown) (no date) (unknown) [facility] (no value) (units unknown) (unknown) Result panel 1688 (unknown) (no date) (unknown) [facility] (no value) (units unknown) (unknown) Result panel 1689 (unknown) (no date) (unknown) [facility] (no value) (units unknown) (unknown) Result panel 1690 (unknown) (no date) (unknown) [facility] (no value) (units unknown) (unknown) Result panel 1691 (unknown) (no date) (unknown) [facility] (no value) (units unknown) (unknown) Result panel 1692 (unknown) (no date) (unknown) [facility] (no value) (units unknown) (unknown) Result panel 1693 (unknown) (no date) (unknown) [facility] (no value) (units unknown) (unknown) Result panel 1694 (unknown) (no date) (unknown) [facility] (no value) (units unknown) (unknown) Result panel 1695 (unknown) (no date) (unknown) [facility] (no value) (units unknown) (unknown) Result panel 1696 (unknown) (no date) (unknown) [facility] (no value) (units unknown) (unknown) Result panel 1697 (unknown) (no date) (unknown) [facility] (no value) (units unknown) (unknown) Result panel 1698 (unknown) (no date) (unknown) [facility] (no value) (units unknown) (unknown) Result panel 1699 (unknown) (no date) (unknown) [facility] (no value) (units unknown) (unknown) Result panel 1700 (unknown) (no date) (unknown) [facility] (no value) (units unknown) (unknown) Result panel 1701 (unknown) (no date) (unknown) [facility] (no value) (units unknown) (unknown) Result panel 1702 (unknown) (no date) (unknown) [facility] (no value) (units unknown) (unknown) Result panel 1703 (unknown) (no date) (unknown) [facility] (no value) (units unknown) (unknown) Result panel 1704 (unknown) (no date) (unknown) [facility] (no value) (units unknown) (unknown) Result panel 1705 (unknown) (no date) (unknown) [facility] (no value) (units unknown) (unknown) Result panel 1706 (unknown) (no date) (unknown) [facility] (no value) (units unknown) (unknown) Result panel 1707 (unknown) (no date) (unknown) [facility] (no value) (units unknown) (unknown) Result panel 1708 (unknown) (no date) (unknown) [facility] (no value) (units unknown) (unknown) Result panel 1709 (unknown) (no date) (unknown) [facility] (no value) (units unknown) (unknown) Result panel 1710 (unknown) (no date) (unknown) [facility] (no value) (units unknown) (unknown) Result panel 1711 (unknown) (no date) (unknown) [facility] (no value) (units unknown) (unknown) Result panel 1712 (unknown) (no date) (unknown) [facility] (no value) (units unknown) (unknown) Result panel 1713 (unknown) (no date) (unknown) [facility] (no value) (units unknown) (unknown) Result panel 1714 (unknown) (no date) (unknown) [facility] (no value) (units unknown) (unknown) Result panel 1715 (unknown) (no date) (unknown) [facility] (no value) (units unknown) (unknown) Result panel 1716 (unknown) (no date) (unknown) [facility] (no value) (units unknown) (unknown) Result panel 1717 (unknown) (no date) (unknown) [facility] (no value) (units unknown) (unknown) Result panel 1718 (unknown) (no date) (unknown) [facility] (no value) (units unknown) (unknown) Result panel 1719 (unknown) (no date) (unknown) [facility] (no value) (units unknown) (unknown) Result panel 1720 (unknown) (no date) (unknown) [facility] (no value) (units unknown) (unknown) Result panel 1721 (unknown) (no date) (unknown) [facility] (no value) (units unknown) (unknown) Result panel 1722 (unknown) (no date) (unknown) [facility] (no value) (units unknown) (unknown) Result panel 1723 (unknown) (no date) (unknown) [facility] (no value) (units unknown) (unknown) Result panel 1724 (unknown) (no date) (unknown) [facility] (no value) (units unknown) (unknown) Result panel 1725 (unknown) (no date) (unknown) [facility] (no value) (units unknown) (unknown) Result panel 1726 (unknown) (no date) (unknown) [facility] (no value) (units unknown) (unknown) Result panel 1727 (unknown) (no date) (unknown) [facility] (no value) (units unknown) (unknown) Result panel 1728 (unknown) (no date) (unknown) [facility] (no value) (units unknown) (unknown) Result panel 1729 (unknown) (no date) (unknown) [facility] (no value) (units unknown) (unknown) Result panel 1730 (unknown) (no date) (unknown) [facility] (no value) (units unknown) (unknown) Result panel 1731 (unknown) (no date) (unknown) [facility] (no value) (units unknown) (unknown) Result panel 1732 (unknown) (no date) (unknown) [facility] (no value) (units unknown) (unknown) Result panel 1733 (unknown) (no date) (unknown) [facility] (no value) (units unknown) (unknown) Result panel 1734 (unknown) (no date) (unknown) [facility] (no value) (units unknown) (unknown) Result panel 1735 (unknown) (no date) (unknown) [facility] (no value) (units unknown) (unknown) Result panel 1736 (unknown) (no date) (unknown) [facility] (no value) (units unknown) (unknown) Result panel 1737 (unknown) (no date) (unknown) [facility] (no value) (units unknown) (unknown) Result panel 1738 (unknown) (no date) (unknown) [facility] (no value) (units unknown) (unknown) Result panel 1739 (unknown) (no date) (unknown) [facility] (no value) (units unknown) (unknown) Result panel 1740 (unknown) (no date) (unknown) [facility] (no value) (units unknown) (unknown) Result panel 1741 (unknown) (no date) (unknown) [facility] (no value) (units unknown) (unknown) Result panel 1742 (unknown) (no date) (unknown) [facility] (no value) (units unknown) (unknown) Result panel 1743 (unknown) (no date) (unknown) [facility] (no value) (units unknown) (unknown) Result panel 1744 (unknown) (no date) (unknown) [facility] (no value) (units unknown) (unknown) Result panel 1745 (unknown) (no date) (unknown) [facility] (no value) (units unknown) (unknown) Result panel 1746 (unknown) (no date) (unknown) [facility] (no value) (units unknown) (unknown) Result panel 1747 (unknown) (no date) (unknown) [facility] (no value) (units unknown) (unknown) Result panel 1748 (unknown) (no date) (unknown) [facility] (no value) (units unknown) (unknown) Result panel 1749 (unknown) (no date) (unknown) [facility] (no value) (units unknown) (unknown) Result panel 1750 (unknown) (no date) (unknown) [facility] (no value) (units unknown) (unknown) Result panel 1751 (unknown) (no date) (unknown) [facility] (no value) (units unknown) (unknown) Result panel 1752 (unknown) (no date) (unknown) [facility] (no value) (units unknown) (unknown) Result panel 1753 (unknown) (no date) (unknown) [facility] (no value) (units unknown) (unknown) Result panel 1754 (unknown) (no date) (unknown) [facility] (no value) (units unknown) (unknown) Result panel 1755 (unknown) (no date) (unknown) [facility] (no value) (units unknown) (unknown) Result panel 1756 (unknown) (no date) (unknown) [facility] (no value) (units unknown) (unknown) Result panel 1757 (unknown) (no date) (unknown) [facility] (no value) (units unknown) (unknown) Result panel 1758 (unknown) (no date) (unknown) [facility] (no value) (units unknown) (unknown) Result panel 1759 (unknown) (no date) (unknown) [facility] (no value) (units unknown) (unknown) Result panel 1760 (unknown) (no date) (unknown) [facility] (no value) (units unknown) (unknown) Result panel 1761 (unknown) (no date) (unknown) [facility] (no value) (units unknown) (unknown) Result panel 1762 (unknown) (no date) (unknown) [facility] (no value) (units unknown) (unknown) Result panel 1763 (unknown) (no date) (unknown) [facility] (no value) (units unknown) (unknown) Result panel 1764 (unknown) (no date) (unknown) [facility] (no value) (units unknown) (unknown) Result panel 1765 (unknown) (no date) (unknown) [facility] (no value) (units unknown) (unknown) Result panel 1766 (unknown) (no date) (unknown) [facility] (no value) (units unknown) (unknown) Result panel 1767 (unknown) (no date) (unknown) [facility] (no value) (units unknown) (unknown) Result panel 1768 (unknown) (no date) (unknown) [facility] (no value) (units unknown) (unknown) Result panel 1769 (unknown) (no date) (unknown) [facility] (no value) (units unknown) (unknown) Result panel 1770 (unknown) (no date) (unknown) [facility] (no value) (units unknown) (unknown) Result panel 1771 (unknown) (no date) (unknown) [facility] (no value) (units unknown) (unknown) Result panel 1772 (unknown) (no date) (unknown) [facility] (no value) (units unknown) (unknown) Result panel 1773 (unknown) (no date) (unknown) [facility] (no value) (units unknown) (unknown) Result panel 1774 (unknown) (no date) (unknown) [facility] (no value) (units unknown) (unknown) Result panel 1775 (unknown) (no date) (unknown) [facility] (no value) (units unknown) (unknown) Result panel 1776 (unknown) (no date) (unknown) [facility] (no value) (units unknown) (unknown) Result panel 1777 (unknown) (no date) (unknown) [facility] (no value) (units unknown) (unknown) Result panel 1778 (unknown) (no date) (unknown) [facility] (no value) (units unknown) (unknown) Result panel 1779 (unknown) (no date) (unknown) [facility] (no value) (units unknown) (unknown) Result panel 1780 (unknown) (no date) (unknown) [facility] (no value) (units unknown) (unknown) Result panel 1781 (unknown) (no date) (unknown) [facility] (no value) (units unknown) (unknown) Result panel 1782 (unknown) (no date) (unknown) [facility] (no value) (units unknown) (unknown) Result panel 1783 (unknown) (no date) (unknown) [facility] (no value) (units unknown) (unknown) Result panel 1784 (unknown) (no date) (unknown) [facility] (no value) (units unknown) (unknown) Result panel 1785 (unknown) (no date) (unknown) [facility] (no value) (units unknown) (unknown) Result panel 1786 (unknown) (no date) (unknown) [facility] (no value) (units unknown) (unknown) Result panel 1787 (unknown) (no date) (unknown) [facility] (no value) (units unknown) (unknown) Result panel 1788 (unknown) (no date) (unknown) [facility] (no value) (units unknown) (unknown) Result panel 1789 (unknown) (no date) (unknown) [facility] (no value) (units unknown) (unknown) Result panel 1790 (unknown) (no date) (unknown) [facility] (no value) (units unknown) (unknown) Result panel 1791 (unknown) (no date) (unknown) [facility] (no value) (units unknown) (unknown) Result panel 1792 (unknown) (no date) (unknown) [facility] (no value) (units unknown) (unknown) Result panel 1793 (unknown) (no date) (unknown) [facility] (no value) (units unknown) (unknown) Result panel 1794 (unknown) (no date) (unknown) [facility] (no value) (units unknown) (unknown) Result panel 1795 (unknown) (no date) (unknown) [facility] (no value) (units unknown) (unknown) Result panel 1796 (unknown) (no date) (unknown) [facility] (no value) (units unknown) (unknown) Result panel 1797 (unknown) (no date) (unknown) [facility] (no value) (units unknown) (unknown) Result panel 1798 (unknown) (no date) (unknown) [facility] (no value) (units unknown) (unknown) Result panel 1799 (unknown) (no date) (unknown) [facility] (no value) (units unknown) (unknown) Result panel 1800 (unknown) (no date) (unknown) [facility] (no value) (units unknown) (unknown) Result panel 1801 (unknown) (no date) (unknown) [facility] (no value) (units unknown) (unknown) Result panel 1802 (unknown) (no date) (unknown) [facility] (no value) (units unknown) (unknown) Result panel 1803 (unknown) (no date) (unknown) [facility] (no value) (units unknown) (unknown) Result panel 1804 (unknown) (no date) (unknown) [facility] (no value) (units unknown) (unknown) Result panel 1805 (unknown) (no date) (unknown) [facility] (no value) (units unknown) (unknown) Result panel 1806 (unknown) (no date) (unknown) [facility] (no value) (units unknown) (unknown) Result panel 1807 (unknown) (no date) (unknown) [facility] (no value) (units unknown) (unknown) Result panel 1808 (unknown) (no date) (unknown) [facility] (no value) (units unknown) (unknown) Result panel 1809 (unknown) (no date) (unknown) [facility] (no value) (units unknown) (unknown) Result panel 1810 (unknown) (no date) (unknown) [facility] (no value) (units unknown) (unknown) Result panel 1811 (unknown) (no date) (unknown) [facility] (no value) (units unknown) (unknown) Result panel 1812 (unknown) (no date) (unknown) [facility] (no value) (units unknown) (unknown) Result panel 1813 (unknown) (no date) (unknown) [facility] (no value) (units unknown) (unknown) Result panel 1814 (unknown) (no date) (unknown) [facility] (no value) (units unknown) (unknown) Result panel 1815 (unknown) (no date) (unknown) [facility] (no value) (units unknown) (unknown) Result panel 1816 (unknown) (no date) (unknown) [facility] (no value) (units unknown) (unknown) Result panel 1817 (unknown) (no date) (unknown) [facility] (no value) (units unknown) (unknown) Result panel 1818 (unknown) (no date) (unknown) [facility] (no value) (units unknown) (unknown) Result panel 1819 (unknown) (no date) (unknown) [facility] (no value) (units unknown) (unknown) Result panel 1820 (unknown) (no date) (unknown) [facility] (no value) (units unknown) (unknown) Result panel 1821 (unknown) (no date) (unknown) [facility] (no value) (units unknown) (unknown) Result panel 1822 (unknown) (no date) (unknown) [facility] (no value) (units unknown) (unknown) Result panel 1823 (unknown) (no date) (unknown) [facility] (no value) (units unknown) (unknown) Result panel 1824 (unknown) (no date) (unknown) [facility] (no value) (units unknown) (unknown) Result panel 1825 (unknown) (no date) (unknown) [facility] (no value) (units unknown) (unknown) Result panel 1826 (unknown) (no date) (unknown) [facility] (no value) (units unknown) (unknown) Result panel 1827 (unknown) (no date) (unknown) [facility] (no value) (units unknown) (unknown) Result panel 1828 (unknown) (no date) (unknown) [facility] (no value) (units unknown) (unknown) Result panel 1829 (unknown) (no date) (unknown) [facility] (no value) (units unknown) (unknown) Result panel 1830 (unknown) (no date) (unknown) [facility] (no value) (units unknown) (unknown) Result panel 1831 (unknown) (no date) (unknown) [facility] (no value) (units unknown) (unknown) Result panel 1832 (unknown) (no date) (unknown) [facility] (no value) (units unknown) (unknown) Result panel 1833 (unknown) (no date) (unknown) [facility] (no value) (units unknown) (unknown) Result panel 1834 (unknown) (no date) (unknown) [facility] (no value) (units unknown) (unknown) Result panel 1835 (unknown) (no date) (unknown) [facility] (no value) (units unknown) (unknown) Result panel 1836 (unknown) (no date) (unknown) [facility] (no value) (units unknown) (unknown) Result panel 1837 (unknown) (no date) (unknown) [facility] (no value) (units unknown) (unknown) Result panel 1838 (unknown) (no date) (unknown) [facility] (no value) (units unknown) (unknown) Result panel 1839 (unknown) (no date) (unknown) [facility] (no value) (units unknown) (unknown) Result panel 1840 (unknown) (no date) (unknown) [facility] (no value) (units unknown) (unknown) Result panel 1841 (unknown) (no date) (unknown) [facility] (no value) (units unknown) (unknown) Result panel 1842 (unknown) (no date) (unknown) [facility] (no value) (units unknown) (unknown) Result panel 1843 (unknown) (no date) (unknown) [facility] (no value) (units unknown) (unknown) Result panel 1844 (unknown) (no date) (unknown) [facility] (no value) (units unknown) (unknown) Result panel 1845 (unknown) (no date) (unknown) [facility] (no value) (units unknown) (unknown) Result panel 1846 (unknown) (no date) (unknown) [facility] (no value) (units unknown) (unknown) Result panel 1847 (unknown) (no date) (unknown) [facility] (no value) (units unknown) (unknown) Result panel 1848 (unknown) (no date) (unknown) [facility] (no value) (units unknown) (unknown) Result panel 1849 (unknown) (no date) (unknown) [facility] (no value) (units unknown) (unknown) Result panel 1850 (unknown) (no date) (unknown) [facility] (no value) (units unknown) (unknown) Result panel 1851 (unknown) (no date) (unknown) [facility] (no value) (units unknown) (unknown) Result panel 1852 (unknown) (no date) (unknown) [facility] (no value) (units unknown) (unknown) Result panel 1853 (unknown) (no date) (unknown) [facility] (no value) (units unknown) (unknown) Result panel 1854 (unknown) (no date) (unknown) [facility] (no value) (units unknown) (unknown) Result panel 1855 (unknown) (no date) (unknown) [facility] (no value) (units unknown) (unknown) Result panel 1856 (unknown) (no date) (unknown) [facility] (no value) (units unknown) (unknown) Result panel 1857 (unknown) (no date) (unknown) [facility] (no value) (units unknown) (unknown) Result panel 1858 (unknown) (no date) (unknown) [facility] (no value) (units unknown) (unknown) Result panel 1859 (unknown) (no date) (unknown) [facility] (no value) (units unknown) (unknown) Result panel 1860 (unknown) (no date) (unknown) [facility] (no value) (units unknown) (unknown) Result panel 1861 (unknown) (no date) (unknown) [facility] (no value) (units unknown) (unknown) Result panel 1862 (unknown) (no date) (unknown) [facility] (no value) (units unknown) (unknown) Result panel 1863 (unknown) (no date) (unknown) [facility] (no value) (units unknown) (unknown) Result panel 1864 (unknown) (no date) (unknown) [facility] (no value) (units unknown) (unknown) Result panel 1865 (unknown) (no date) (unknown) [facility] (no value) (units unknown) (unknown) Result panel 1866 (unknown) (no date) (unknown) [facility] (no value) (units unknown) (unknown) Result panel 1867 (unknown) (no date) (unknown) [facility] (no value) (units unknown) (unknown) Result panel 1868 (unknown) (no date) (unknown) [facility] (no value) (units unknown) (unknown) Result panel 1869 (unknown) (no date) (unknown) [facility] (no value) (units unknown) (unknown) Result panel 1870 (unknown) (no date) (unknown) [facility] (no value) (units unknown) (unknown) Result panel 1871 (unknown) (no date) (unknown) [facility] (no value) (units unknown) (unknown) Result panel 1872 (unknown) (no date) (unknown) [facility] (no value) (units unknown) (unknown) Result panel 1873 (unknown) (no date) (unknown) [facility] (no value) (units unknown) (unknown) Result panel 1874 (unknown) (no date) (unknown) [facility] (no value) (units unknown) (unknown) Result panel 1875 (unknown) (no date) (unknown) [facility] (no value) (units unknown) (unknown) Result panel 1876 (unknown) (no date) (unknown) [facility] (no value) (units unknown) (unknown) Result panel 1877 (unknown) (no date) (unknown) [facility] (no value) (units unknown) (unknown) Result panel 1878 (unknown) (no date) (unknown) [facility] (no value) (units unknown) (unknown) Result panel 1879 (unknown) (no date) (unknown) [facility] (no value) (units unknown) (unknown) Result panel 1880 (unknown) (no date) (unknown) [facility] (no value) (units unknown) (unknown) Result panel 1881 (unknown) (no date) (unknown) [facility] (no value) (units unknown) (unknown) Result panel 1882 (unknown) (no date) (unknown) [facility] (no value) (units unknown) (unknown) Result panel 1883 (unknown) (no date) (unknown) [facility] (no value) (units unknown) (unknown) Result panel 1884 (unknown) (no date) (unknown) [facility] (no value) (units unknown) (unknown) Result panel 1885 (unknown) (no date) (unknown) [facility] (no value) (units unknown) (unknown) Result panel 1886 (unknown) (no date) (unknown) [facility] (no value) (units unknown) (unknown) Result panel 1887 (unknown) (no date) (unknown) [facility] (no value) (units unknown) (unknown) Result panel 1888 (unknown) (no date) (unknown) [facility] (no value) (units unknown) (unknown) Result panel 1889 (unknown) (no date) (unknown) [facility] (no value) (units unknown) (unknown) Result panel 1890 (unknown) (no date) (unknown) [facility] (no value) (units unknown) (unknown) Result panel 1891 (unknown) (no date) (unknown) [facility] (no value) (units unknown) (unknown) Result panel 1892 (unknown) (no date) (unknown) [facility] (no value) (units unknown) (unknown) Result panel 1893 (unknown) (no date) (unknown) [facility] (no value) (units unknown) (unknown) Result panel 1894 (unknown) (no date) (unknown) [facility] (no value) (units unknown) (unknown) Result panel 1895 (unknown) (no date) (unknown) [facility] (no value) (units unknown) (unknown) Result panel 1896 (unknown) (no date) (unknown) [facility] (no value) (units unknown) (unknown) Result panel 1897 (unknown) (no date) (unknown) [facility] (no value) (units unknown) (unknown) Result panel 1898 (unknown) (no date) (unknown) [facility] (no value) (units unknown) (unknown) Result panel 1899 (unknown) (no date) (unknown) [facility] (no value) (units unknown) (unknown) Result panel 1900 (unknown) (no date) (unknown) [facility] (no value) (units unknown) (unknown) Result panel 1901 (unknown) (no date) (unknown) [facility] (no value) (units unknown) (unknown) Result panel 1902 (unknown) (no date) (unknown) [facility] (no value) (units unknown) (unknown) Result panel 1903 (unknown) (no date) (unknown) [facility] (no value) (units unknown) (unknown) Result panel 1904 (unknown) (no date) (unknown) [facility] (no value) (units unknown) (unknown) Result panel 1905 (unknown) (no date) (unknown) [facility] (no value) (units unknown) (unknown) Result panel 1906 (unknown) (no date) (unknown) [facility] (no value) (units unknown) (unknown) Result panel 1907 (unknown) (no date) (unknown) [facility] (no value) (units unknown) (unknown) Result panel 1908 (unknown) (no date) (unknown) [facility] (no value) (units unknown) (unknown) Result panel 1909 (unknown) (no date) (unknown) [facility] (no value) (units unknown) (unknown) Result panel 1910 (unknown) (no date) (unknown) [facility] (no value) (units unknown) (unknown) Result panel 191 (unknown) (no date) (unknown) [facility] (no value) (units unknown) (unknown) Result panel 1912 (unknown) (no date) (unknown) [facility] (no value) (units unknown) (unknown) Result panel 1913 (unknown) (no date) (unknown) [facility] (no value) (units unknown) (unknown) Result panel 1914 (unknown) (no date) (unknown) [facility] (no value) (units unknown) (unknown) Result panel 1915 (unknown) (no date) (unknown) [facility] (no value) (units unknown) (unknown) Result panel 1916 (unknown) (no date) (unknown) [facility] (no value) (units unknown) (unknown) Result panel 1917 (unknown) (no date) (unknown) [facility] (no value) (units unknown) (unknown) Result panel 1918 (unknown) (no date) (unknown) [facility] (no value) (units unknown) (unknown) Result panel 1919 (unknown) (no date) (unknown) [facility] (no value) (units unknown) (unknown) Result panel 1920 (unknown) (no date) (unknown) [facility] (no value) (units unknown) (unknown) Result panel 1921 (unknown) (no date) (unknown) [facility] (no value) (units unknown) (unknown) Result panel 1922 (unknown) (no date) (unknown) [facility] (no value) (units unknown) (unknown) Result panel 1923 (unknown) (no date) (unknown) [facility] (no value) (units unknown) (unknown) Result panel 1924 (unknown) (no date) (unknown) [facility] (no value) (units unknown) (unknown) Result panel 1925 (unknown) (no date) (unknown) [facility] (no value) (units unknown) (unknown) Result panel 1926 (unknown) (no date) (unknown) [facility] (no value) (units unknown) (unknown) Result panel 1927 (unknown) (no date) (unknown) [facility] (no value) (units unknown) (unknown) Result panel 1928 (unknown) (no date) (unknown) [facility] (no value) (units unknown) (unknown) Result panel 192 (unknown) (no date) (unknown) [facility] (no value) (units unknown) (unknown) Result panel 1930 (unknown) (no date) (unknown) [facility] (no value) (units unknown) (unknown) Result panel 193 (unknown) (no date) (unknown) [facility] (no value) (units unknown) (unknown) Result panel 1932 (unknown) (no date) (unknown) [facility] (no value) (units unknown) (unknown) Result panel 1933 (unknown) (no date) (unknown) [facility] (no value) (units unknown) (unknown) Result panel 1934 (unknown) (no date) (unknown) [facility] (no value) (units unknown) (unknown) Result panel 1935 (unknown) (no date) (unknown) [facility] (no value) (units unknown) (unknown) Result panel 1936 (unknown) (no date) (unknown) [facility] (no value) (units unknown) (unknown) Result panel 1937 (unknown) (no date) (unknown) [facility] (no value) (units unknown) (unknown) Result panel 1938 (unknown) (no date) (unknown) [facility] (no value) (units unknown) (unknown) Result panel 1939 (unknown) (no date) (unknown) [facility] (no value) (units unknown) (unknown) Result panel 1940 (unknown) (no date) (unknown) [facility] (no value) (units unknown) (unknown) Result panel 1941 (unknown) (no date) (unknown) [facility] (no value) (units unknown) (unknown) Result panel 194 (unknown) (no date) (unknown) [facility] (no value) (units unknown) (unknown) Result panel 194 (unknown) (no date) (unknown) [facility] (no value) (units unknown) (unknown) Result panel 194 (unknown) (no date) (unknown) [facility] (no value) (units unknown) (unknown) Result panel 194 (unknown) (no date) (unknown) [facility] (no value) (units unknown) (unknown) Result panel 194 (unknown) (no date) (unknown) [facility] (no value) (units unknown) (unknown) Result panel 1946 (unknown) (no date) (unknown) [facility] (no value) (units unknown) (unknown) Result panel 194 (unknown) (no date) (unknown) [facility] (no value) (units unknown) (unknown) Result panel 194 (unknown) (no date) (unknown) [facility] (no value) (units unknown) (unknown) Result panel 1949 (unknown) (no date) (unknown) [facility] (no value) (units unknown) (unknown) Result panel 1950 (unknown) (no date) (unknown) [facility] (no value) (units unknown) (unknown) Result panel 1951 (unknown) (no date) (unknown) [facility] (no value) (units unknown) (unknown) Result panel 195 (unknown) (no date) (unknown) [facility] (no value) (units unknown) (unknown) Result panel 195 (unknown) (no date) (unknown) [facility] (no value) (units unknown) (unknown) Result panel 195 (unknown) (no date) (unknown) [facility] (no value) (units unknown) (unknown) Result panel 195 (unknown) (no date) (unknown) [facility] (no value) (units unknown) (unknown) Result panel 195 (unknown) (no date) (unknown) [facility] (no value) (units unknown) (unknown) Result panel 195 (unknown) (no date) (unknown) [facility] (no value) (units unknown) (unknown) Result panel 195 (unknown) (no date) (unknown) [facility] (no value) (units unknown) (unknown) Result panel 1960 (unknown) (no date) (unknown) [facility] (no value) (units unknown) (unknown) Result panel 1960 (unknown) (no date) (unknown) [facility] (no value) (units unknown) (unknown) Result panel 196 (unknown) (no date) (unknown) [facility] (no value) (units unknown) (unknown) Result panel 1963 (unknown) (no date) (unknown) [facility] (no value) (units unknown) (unknown) Result panel 1964 (unknown) (no date) (unknown) [facility] (no value) (units unknown) (unknown) Result panel 1965 (unknown) (no date) (unknown) [facility] (no value) (units unknown) (unknown) Result panel 1966 (unknown) (no date) (unknown) [facility] (no value) (units unknown) (unknown) Result panel 1967 (unknown) (no date) (unknown) [facility] (no value) (units unknown) (unknown) Result panel 1967 (unknown) (no date) (unknown) [facility] (no value) (units unknown) (unknown) Result panel 1969 (unknown) (no date) (unknown) [facility] (no value) (units unknown) (unknown) Result panel 1970 (unknown) (no date) (unknown) [facility] (no value) (units unknown) (unknown) Result panel 1971 (unknown) (no date) (unknown) [facility] (no value) (units unknown) (unknown) Result panel 1972 (unknown) (no date) (unknown) [facility] (no value) (units unknown) (unknown) Result panel 1972 (unknown) (no date) (unknown) [facility] (no value) (units unknown) (unknown) Result panel 1974 (unknown) (no date) (unknown) [facility] (no value) (units unknown) (unknown) Result panel 1974 (unknown) (no date) (unknown) [facility] (no value) (units unknown) (unknown) Result panel 1975 (unknown) (no date) (unknown) [facility] (no value) (units unknown) (unknown) Result panel 1976 (unknown) (no date) (unknown) [facility] (no value) (units unknown) (unknown) Result panel 1977 (unknown) (no date) (unknown) [facility] (no value) (units unknown) (unknown) Result panel 1978 (unknown) (no date) (unknown) [facility] (no value) (units unknown) (unknown) Result panel 1979 (unknown) (no date) (unknown) [facility] (no value) (units unknown) (unknown) Result panel 1980 (unknown) (no date) (unknown) [facility] (no value) (units unknown) (unknown) Result panel 1981 (unknown) (no date) (unknown) [facility] (no value) (units unknown) (unknown) Result panel 1982 (unknown) (no date) (unknown) [facility] (no value) (units unknown) (unknown) Result panel 1983 (unknown) (no date) (unknown) [facility] (no value) (units unknown) (unknown) Result panel 1984 (unknown) (no date) (unknown) [facility] (no value) (units unknown) (unknown) Result panel 1985 (unknown) (no date) (unknown) [facility] (no value) (units unknown) (unknown) Result panel 1986 (unknown) (no date) (unknown) [facility] (no value) (units unknown) (unknown) Result panel 1987 (unknown) (no date) (unknown) [facility] (no value) (units unknown) (unknown) Result panel 1988 (unknown) (no date) (unknown) [facility] (no value) (units unknown) (unknown) Result panel 1989 (unknown) (no date) (unknown) [facility] (no value) (units unknown) (unknown) Result panel 1990 (unknown) (no date) (unknown) [facility] (no value) (units unknown) (unknown) Result panel 1991 (unknown) (no date) (unknown) [facility] (no value) (units unknown) (unknown) Result panel 1992 (unknown) (no date) (unknown) [facility] (no value) (units unknown) (unknown) Result panel 1993 (unknown) (no date) (unknown) [facility] (no value) (units unknown) (unknown) Result panel 1994 (unknown) (no date) (unknown) [facility] (no value) (units unknown) (unknown) Result panel 1995 (unknown) (no date) (unknown) [facility] (no value) (units unknown) (unknown) Result panel 1996 (unknown) (no date) (unknown) [facility] (no value) (units unknown) (unknown) Result panel 1997 (unknown) (no date) (unknown) [facility] (no value) (units unknown) (unknown) Result panel 1998 (unknown) (no date) (unknown) [facility] (no value) (units unknown) (unknown) Result panel 1999 (unknown) (no date) (unknown) [facility] (no value) (units unknown) (unknown) Result panel 2000 (unknown) (no date) (unknown) [facility] (no value) (units unknown) (unknown) Result panel 2001 (unknown) (no date) (unknown) [facility] (no value) (units unknown) (unknown) Result panel 2002 (unknown) (no date) (unknown) [facility] (no value) (units unknown) (unknown) Result panel 2003 (unknown) (no date) (unknown) [facility] (no value) (units unknown) (unknown) Result panel 2005 (unknown) (no date) (unknown) [facility] (no value) (units unknown) (unknown) Result panel 2006 (unknown) (no date) (unknown) [facility] (no value) (units unknown) (unknown) Result panel 2007 (unknown) (no date) (unknown) [facility] (no value) (units unknown) (unknown) Result panel 2008 (unknown) (no date) (unknown) [facility] (no value) (units unknown) (unknown) Result panel 2009 (unknown) (no date) (unknown) [facility] (no value) (units unknown) (unknown) Result panel 2010 (unknown) (no date) (unknown) [facility] (no value) (units unknown) (unknown) Result panel 2011 (unknown) (no date) (unknown) [facility] (no value) (units unknown) (unknown) Result panel 2012 (unknown) (no date) (unknown) [facility] (no value) (units unknown) (unknown) Result panel 2013 (unknown) (no date) (unknown) [facility] (no value) (units unknown) (unknown) Result panel 2014 (unknown) (no date) (unknown) [facility] (no value) (units unknown) (unknown) Result panel 2015 (unknown) (no date) (unknown) [facility] (no value) (units unknown) (unknown) Result panel 2016 (unknown) (no date) (unknown) [facility] (no value) (units unknown) (unknown) Result panel 2017 (unknown) (no date) (unknown) [facility] (no value) (units unknown) (unknown) Result panel 2018 (unknown) (no date) (unknown) [facility] (no value) (units unknown) (unknown) Result panel 2019 (unknown) (no date) (unknown) [facility] (no value) (units unknown) (unknown) Result panel 2019 (unknown) (no date) (unknown) [facility] (no value) (units unknown) (unknown) Result panel 2020 (unknown) (no date) (unknown) [facility] (no value) (units unknown) (unknown) Result panel 2021 (unknown) (no date) (unknown) [facility] (no value) (units unknown) (unknown) Result panel 2022 (unknown) (no date) (unknown) [facility] (no value) (units unknown) (unknown) Result panel 2023 (unknown) (no date) (unknown) [facility] (no value) (units unknown) (unknown) Result panel 2024 (unknown) (no date) (unknown) [facility] (no value) (units unknown) (unknown) Result panel 2025 (unknown) (no date) (unknown) [facility] (no value) (units unknown) (unknown) Result panel 2026 (unknown) (no date) (unknown) [facility] (no value) (units unknown) (unknown) Result panel 2027 (unknown) (no date) (unknown) [facility] (no value) (units unknown) (unknown) Result panel 2028 (unknown) (no date) (unknown) [facility] (no value) (units unknown) (unknown) Result panel 2029 (unknown) (no date) (unknown) [facility] (no value) (units unknown) (unknown) Result panel 2030 (unknown) (no date) (unknown) [facility] (no value) (units unknown) (unknown) Result panel 2 (unknown) (no date) (unknown) [facility] (no value) (units unknown) (unknown) Result panel 2032 (unknown) (no date) (unknown) [facility] (no value) (units unknown) (unknown) Result panel 2033 (unknown) (no date) (unknown) [facility] (no value) (units unknown) (unknown) Result panel 2034 (unknown) (no date) (unknown) [facility] (no value) (units unknown) (unknown) Result panel 2036 (unknown) (no date) (unknown) [facility] (no value) (units unknown) (unknown) Result panel 2037 (unknown) (no date) (unknown) [facility] (no value) (units unknown) (unknown) Result panel 203 (unknown) (no date) (unknown) [facility] (no value) (units unknown) (unknown) Result panel 203 (unknown) (no date) (unknown) [facility] (no value) (units unknown) (unknown) Result panel 204 (unknown) (no date) (unknown) [facility] (no value) (units unknown) (unknown) Result panel 204 (unknown) (no date) (unknown) [facility] (no value) (units unknown) (unknown) Result panel 204 (unknown) (no date) (unknown) [facility] (no value) (units unknown) (unknown) Result panel 2043 (unknown) (no date) (unknown) [facility] (no value) (units unknown) (unknown) Result panel 2044 (unknown) (no date) (unknown) [facility] (no value) (units unknown) (unknown) Result panel 2045 (unknown) (no date) (unknown) [facility] (no value) (units unknown) (unknown) Result panel 2046 (unknown) (no date) (unknown) [facility] (no value) (units unknown) (unknown) Result panel 2047 (unknown) (no date) (unknown) [facility] (no value) (units unknown) (unknown) Result panel 204 (unknown) (no date) (unknown) [facility] (no value) (units unknown) (unknown) Result panel 204 (unknown) (no date) (unknown) [facility] (no value) (units unknown) (unknown) Result panel 205 (unknown) (no date) (unknown) [facility] (no value) (units unknown) (unknown) Result panel 205 (unknown) (no date) (unknown) [facility] (no value) (units unknown) (unknown) Result panel 205 (unknown) (no date) (unknown) [facility] (no value) (units unknown) (unknown) Result panel 205 (unknown) (no date) (unknown) [facility] (no value) (units unknown) (unknown) Result panel 2053 (unknown) (no date) (unknown) [facility] (no value) (units unknown) (unknown) Result panel 2054 (unknown) (no date) (unknown) [facility] (no value) (units unknown) (unknown) Result panel 2055 (unknown) (no date) (unknown) [facility] (no value) (units unknown) (unknown) Result panel 2056 (unknown) (no date) (unknown) [facility] (no value) (units unknown) (unknown) Result panel 2057 (unknown) (no date) (unknown) [facility] (no value) (units unknown) (unknown) Result panel 2058 (unknown) (no date) (unknown) [facility] (no value) (units unknown) (unknown) Result panel 2059 (unknown) (no date) (unknown) [facility] (no value) (units unknown) (unknown) Result panel 2060 (unknown) (no date) (unknown) [facility] (no value) (units unknown) (unknown) Result panel 2061 (unknown) (no date) (unknown) [facility] (no value) (units unknown) (unknown) Result panel 2062 (unknown) (no date) (unknown) [facility] (no value) (units unknown) (unknown) Result panel 2063 (unknown) (no date) (unknown) [facility] (no value) (units unknown) (unknown) Result panel 2064 (unknown) (no date) (unknown) [facility] (no value) (units unknown) (unknown) Result panel 2065 (unknown) (no date) (unknown) [facility] (no value) (units unknown) (unknown) Result panel 2066 (unknown) (no date) (unknown) [facility] (no value) (units unknown) (unknown) Result panel 2067 (unknown) (no date) (unknown) [facility] (no value) (units unknown) (unknown) Result panel 2068 (unknown) (no date) (unknown) [facility] (no value) (units unknown) (unknown) Result panel 2069 (unknown) (no date) (unknown) [facility] (no value) (units unknown) (unknown) Result panel 2070 (unknown) (no date) (unknown) [facility] (no value) (units unknown) (unknown) Result panel 2071 (unknown) (no date) (unknown) [facility] (no value) (units unknown) (unknown) Result panel 2073 (unknown) (no date) (unknown) [facility] (no value) (units unknown) (unknown) Result panel 2073 (unknown) (no date) (unknown) [facility] (no value) (units unknown) (unknown) Result panel 2074 (unknown) (no date) (unknown) [facility] (no value) (units unknown) (unknown) Result panel 2075 (unknown) (no date) (unknown) [facility] (no value) (units unknown) (unknown) Result panel 2076 (unknown) (no date) (unknown) [facility] (no value) (units unknown) (unknown) Result panel 2077 (unknown) (no date) (unknown) [facility] (no value) (units unknown) (unknown) Result panel 2078 (unknown) (no date) (unknown) [facility] (no value) (units unknown) (unknown) Result panel 2079 (unknown) (no date) (unknown) [facility] (no value) (units unknown) (unknown) Result panel 208 (unknown) (no date) (unknown) [facility] (no value) (units unknown) (unknown) Result panel 2082 (unknown) (no date) (unknown) [facility] (no value) (units unknown) (unknown) Result panel 3 (unknown) (no date) (unknown) [facility] (no value) (units unknown) (unknown) Result panel 4 (unknown) (no date) (unknown) [facility] (no value) (units unknown) (unknown) Result panel 2085 (unknown) (no date) (unknown) [facility] (no value) (units unknown) (unknown) Result panel 2086 (unknown) (no date) (unknown) [facility] (no value) (units unknown) (unknown) Result panel 2087 (unknown) (no date) (unknown) [facility] (no value) (units unknown) (unknown) Result panel 2088 (unknown) (no date) (unknown) [facility] (no value) (units unknown) (unknown) Result panel 2089 (unknown) (no date) (unknown) [facility] (no value) (units unknown) (unknown) Result panel 209 (unknown) (no date) (unknown) [facility] (no value) (units unknown) (unknown) Result panel 2091 (unknown) (no date) (unknown) [facility] (no value) (units unknown) (unknown) Result panel 2092 (unknown) (no date) (unknown) [facility] (no value) (units unknown) (unknown) Result panel 2093 (unknown) (no date) (unknown) [facility] (no value) (units unknown) (unknown) Result panel 2094 (unknown) (no date) (unknown) [facility] (no value) (units unknown) (unknown) Result panel 2095 (unknown) (no date) (unknown) [facility] (no value) (units unknown) (unknown) Result panel 2096 (unknown) (no date) (unknown) [facility] (no value) (units unknown) (unknown) Result panel 2097 (unknown) (no date) (unknown) [facility] (no value) (units unknown) (unknown) Result panel 2098 (unknown) (no date) (unknown) [facility] (no value) (units unknown) (unknown) Result panel 2099 (unknown) (no date) (unknown) [facility] (no value) (units unknown) (unknown) Result panel 2100 (unknown) (no date) (unknown) [facility] (no value) (units unknown) (unknown) Result panel 2101 (unknown) (no date) (unknown) [facility] (no value) (units unknown) (unknown) Result panel 2102 (unknown) (no date) (unknown) [facility] (no value) (units unknown) (unknown) Result panel 2103 (unknown) (no date) (unknown) [facility] (no value) (units unknown) (unknown) Result panel 2104 (unknown) (no date) (unknown) [facility] (no value) (units unknown) (unknown) Result panel 2105 (unknown) (no date) (unknown) [facility] (no value) (units unknown) (unknown) Result panel 2106 (unknown) (no date) (unknown) [facility] (no value) (units unknown) (unknown) Result panel 2107 (unknown) (no date) (unknown) [facility] (no value) (units unknown) (unknown) Result panel 2108 (unknown) (no date) (unknown) [facility] (no value) (units unknown) (unknown) Result panel 2109 (unknown) (no date) (unknown) [facility] (no value) (units unknown) (unknown) Result panel 2110 (unknown) (no date) (unknown) [facility] (no value) (units unknown) (unknown) Result panel 2111 (unknown) (no date) (unknown) [facility] (no value) (units unknown) (unknown) Result panel 2112 (unknown) (no date) (unknown) [facility] (no value) (units unknown) (unknown) Result panel 2113 (unknown) (no date) (unknown) [facility] (no value) (units unknown) (unknown) Result panel 2114 (unknown) (no date) (unknown) [facility] (no value) (units unknown) (unknown) Result panel 2115 (unknown) (no date) (unknown) [facility] (no value) (units unknown) (unknown) Result panel 2116 (unknown) (no date) (unknown) [facility] (no value) (units unknown) (unknown) Result panel 2117 (unknown) (no date) (unknown) [facility] (no value) (units unknown) (unknown) Result panel 2118 (unknown) (no date) (unknown) [facility] (no value) (units unknown) (unknown) Result panel 2119 (unknown) (no date) (unknown) [facility] (no value) (units unknown) (unknown) Result panel 2120 (unknown) (no date) (unknown) [facility] (no value) (units unknown) (unknown) Result panel 2121 (unknown) (no date) (unknown) [facility] (no value) (units unknown) (unknown) Result panel 2122 (unknown) (no date) (unknown) [facility] (no value) (units unknown) (unknown) Result panel 2123 (unknown) (no date) (unknown) [facility] (no value) (units unknown) (unknown) Result panel 2124 (unknown) (no date) (unknown) [facility] (no value) (units unknown) (unknown) Result panel 2125 (unknown) (no date) (unknown) [facility] (no value) (units unknown) (unknown) Result panel 2126 (unknown) (no date) (unknown) [facility] (no value) (units unknown) (unknown) Result panel 2127 (unknown) (no date) (unknown) [facility] (no value) (units unknown) (unknown) Result panel 2128 (unknown) (no date) (unknown) [facility] (no value) (units unknown) (unknown) Result panel 2129 (unknown) (no date) (unknown) [facility] (no value) (units unknown) (unknown) Result panel 2130 (unknown) (no date) (unknown) [facility] (no value) (units unknown) (unknown) Result panel 2131 (unknown) (no date) (unknown) [facility] (no value) (units unknown) (unknown) Result panel 2132 (unknown) (no date) (unknown) [facility] (no value) (units unknown) (unknown) Result panel 2133 (unknown) (no date) (unknown) [facility] (no value) (units unknown) (unknown) Result panel 2134 (unknown) (no date) (unknown) [facility] (no value) (units unknown) (unknown) Result panel 2135 (unknown) (no date) (unknown) [facility] (no value) (units unknown) (unknown) Result panel 2136 (unknown) (no date) (unknown) [facility] (no value) (units unknown) (unknown) Result panel 2137 (unknown) (no date) (unknown) [facility] (no value) (units unknown) (unknown) Result panel 2138 (unknown) (no date) (unknown) [facility] (no value) (units unknown) (unknown) Result panel 2139 (unknown) (no date) (unknown) [facility] (no value) (units unknown) (unknown) Result panel 2140 (unknown) (no date) (unknown) [facility] (no value) (units unknown) (unknown) Result panel 2141 (unknown) (no date) (unknown) [facility] (no value) (units unknown) (unknown) Result panel 2142 (unknown) (no date) (unknown) [facility] (no value) (units unknown) (unknown) Result panel 2143 (unknown) (no date) (unknown) [facility] (no value) (units unknown) (unknown) Result panel 2144 (unknown) (no date) (unknown) [facility] (no value) (units unknown) (unknown) Result panel 2145 (unknown) (no date) (unknown) [facility] (no value) (units unknown) (unknown) Result panel 2146 (unknown) (no date) (unknown) [facility] (no value) (units unknown) (unknown) Result panel 2147 (unknown) (no date) (unknown) [facility] (no value) (units unknown) (unknown) Result panel 2148 (unknown) (no date) (unknown) [facility] (no value) (units unknown) (unknown) Result panel 2149 (unknown) (no date) (unknown) [facility] (no value) (units unknown) (unknown) Result panel 2150 (unknown) (no date) (unknown) [facility] (no value) (units unknown) (unknown) Result panel 2151 (unknown) (no date) (unknown) [facility] (no value) (units unknown) (unknown) Result panel 2152 (unknown) (no date) (unknown) [facility] (no value) (units unknown) (unknown) Result panel 2153 (unknown) (no date) (unknown) [facility] (no value) (units unknown) (unknown) Result panel 2154 (unknown) (no date) (unknown) [facility] (no value) (units unknown) (unknown) Result panel 2155 (unknown) (no date) (unknown) [facility] (no value) (units unknown) (unknown) Result panel 2156 (unknown) (no date) (unknown) [facility] (no value) (units unknown) (unknown) Result panel 2157 (unknown) (no date) (unknown) [facility] (no value) (units unknown) (unknown) Result panel 2158 (unknown) (no date) (unknown) [facility] (no value) (units unknown) (unknown) Result panel 2159 (unknown) (no date) (unknown) [facility] (no value) (units unknown) (unknown) Result panel 2160 (unknown) (no date) (unknown) [facility] (no value) (units unknown) (unknown) Result panel 2161 (unknown) (no date) (unknown) [facility] (no value) (units unknown) (unknown) Result panel 2162 (unknown) (no date) (unknown) [facility] (no value) (units unknown) (unknown) Result panel 2163 (unknown) (no date) (unknown) [facility] (no value) (units unknown) (unknown) Result panel 2164 (unknown) (no date) (unknown) [facility] (no value) (units unknown) (unknown) Result panel 2165 (unknown) (no date) (unknown) [facility] (no value) (units unknown) (unknown) Result panel 2166 (unknown) (no date) (unknown) [facility] (no value) (units unknown) (unknown) Result panel 2167 (unknown) (no date) (unknown) (unknown) Negative (units unknown) (unknown) (unknown) (no date) (unknown) (unknown) Normal (units unknown) (unknown) Result panel 2168 (unknown) (no date) (unknown) (unknown) Negative (units unknown) (unknown) (unknown) (no date) (unknown) (unknown) Negative (units unknown) (unknown) Result panel 2169 (unknown) (no date) (unknown) (unknown) (no value) (units unknown) (unknown) (unknown) (no date) (unknown) (unknown) (1-3) #30 tabs (units unknown) (unknown) (unknown) (no date) (unknown) (unknown) (Benadryl) caps (units unknown) (unknown) (unknown) (no date) (unknown) (unknown) (Colace) (units unknown) (unknown) (unknown) (no date) (unknown) (unknown) (Tylenol) (units unknown) (unknown) (unknown) (no date) (unknown) (unknown) [id number] (units unknown) (unknown) (unknown) (no date) (unknown) (unknown) 07/12/22 07/12/22 Range/Units (units unknown) (unknown) (unknown) (no date) (unknown) (unknown) 07/12/22 16:28 (units unknown) (unknown) (unknown) (no date) (unknown) (unknown) 07/12/22 16:32 (units unknown) (unknown) (unknown) (no date) (unknown) (unknown) 07/12/22 17:06 (units unknown) (unknown) (unknown) (no date) (unknown) (unknown) 07/12/22 17:44 (units unknown) (unknown) (unknown) (no date) (unknown) (unknown) 07/12/22 (units unknown) (unknown) (unknown) (no date) (unknown) (unknown) 1 tab PO DAILY (units unknown) (unknown) (unknown) (no date) (unknown) (unknown) 100 mg PO BID Qty: 3 0 0RF (units unknown) (unknown) (unknown) (no date) (unknown) (unknown) 16:10 (units unknown) (unknown) (unknown) (no date) (unknown) (unknown) 16:32 16:32 (units unknown) (unknown) (unknown) (no date) (unknown) (unknown) 2022 with similar symptoms. She comes in complaining of needing help, states (units unknown) (unknown) (unknown) (no date) (unknown) (unknown) 25 mg PO BEDTIME PRN (Reason: insomnia) Qty: 20 0RF (units unknown) (unknown) (unknown) (no date) (unknown) (unknown) 325 mg PO Q6H PRN (Reason: pain) Qty: 20 0RF (units unknown) (unknown) (unknown) (no date) (unknown) (unknown) 4 mg PO Q6H PRN (Reason: nausea and vomiting) Qty: 14 0RF (units unknown) (unknown) (unknown) (no date) (unknown) (unknown) 4 mg PO Q8H PRN (Reason: nausea and vomiting) Qty: 20 0RF (units unknown) (unknown) (unknown) (no date) (unknown) (unknown) 4 mg PO Q8H PRN (Reason: nausea and vomiting) Qty: 30 0RF (units unknown) (unknown) (unknown) (no date) (unknown) (unknown) 50 mg PO Q6H PRN (Reason: pain) Qty: 10 0RF (units unknown) (unknown) (unknown) (no date) (unknown) (unknown) 600 mg PO Q6HR PRN (Reason: Pain, Mild (1-3)) Qty: 30 0RF (units unknown) (unknown) (unknown) (no date) (unknown) (unknown) 9 points (units unknown) (unknown) (unknown) (no date) (unknown) (unknown) Acetaminophen Stat (units unknown) (unknown) (unknown) (no date) (unknown) (unknown) Age/Sex: 31 / F (units unknown) (unknown) (unknown) (no date) (unknown) (unknown) Agitation ?> 2 = (More severe symptoms) (units unknown) (unknown) (unknown) (no date) (unknown) (unknown) Alcoholism (units unknown) (unknown) (unknown) (no date) (unknown) (unknown) Allergies (units unknown) (unknown) (unknown) (no date) (unknown) (unknown) Allergy/AdvReac Type Severity Reaction Status Date / Time (units unknown) (unknown) (unknown) (no date) (unknown) (unknown) Anemia (-2018) (units unknown) (unknown) (unknown) (no date) (unknown) (unknown) Anxiety ?> 2 = (More severe symptoms) (units unknown) (unknown) (unknown) (no date) (unknown) (unknown) Auditory disturbance s ?> 1 = Very mild harshness or ability to frighten (units unknown) (unknown) (unknown) (no date) (unknown) (unknown) Bedside Urine Bilirubin - Negative (units unknown) (unknown) (unknown) (no date) (unknown) (unknown) Bedside Urine Glucos e Negative (units unknown) (unknown) (unknown) (no date) (unknown) (unknown) Bedside Urine Ketone - Negative (units unknown) (unknown) (unknown) (no date) (unknown) (unknown) Bedside Urine Leukocytes - Negative (units unknown) (unknown) (unknown) (no date) (unknown) (unknown) Bedside Urine Nitrit e + Positive (units unknown) (unknown) (unknown) (no date) (unknown) (unknown) Bedside Urine Occult Blood - Negative (units unknown) (unknown) (unknown) (no date) (unknown) (unknown) Bedside Urine Protei n - Negative (units unknown) (unknown) (unknown) (no date) (unknown) (unknown) Bedside Urine Urobilinogen - Negative (units unknown) (unknown) (unknown) (no date) (unknown) (unknown) Bedside Urine pH 6.0 (units unknown) (unknown) (unknown) (no date) (unknown) (unknown) Blood Pressure 112/6 2 07/12/22 16:10 (units unknown) (unknown) (unknown) (no date) (unknown) (unknown) Blood Pressure 112/62 (units unknown) (unknown) (unknown) (no date) (unknown) (unknown) [facility] for Alcohol Withdrawal from [email or web address] on 07/12/2022 (units unknown) (unknown) (unknown) (no date) (unknown) (unknown) COVID19 -Nasal RAPID/Pre-Proc Stat (units unknown) (unknown) (unknown) (no date) (unknown) (unknown) Cardiovascular: regular rate and rhythm, no peripheral edema, warm extremities (units unknown) (unknown) (unknown) (no date) (unknown) (unknown) Chief Complaint: Alcohol intoxication, seeking detox (units unknown) (unknown) (unknown) (no date) (unknown) (unknown) Chief Complaint: Toxicology Problem (units unknown) (unknown) (unknown) (no date) (unknown) (unknown) Clinical decision rules or scores evaluated: CIWA of 9 at 1753 (units unknown) (unknown) (unknown) (no date) (unknown) (unknown) Complete Blood Count AUTO DIFF Stat (units unknown) (unknown) (unknown) (no date) (unknown) (unknown) Comprehensive Metabolic Panel Stat (units unknown) (unknown) (unknown) (no date) (unknown) (unknown) 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 (units unknown) (unknown) (unknown) (no date) (unknown) (unknown) Course of care: Patient is a difficult IV stick, ordered IV with lab work, (units unknown) (unknown) (unknown) (no date) (unknown) (unknown) Course (units unknown) (unknown) (unknown) (no date) (unknown) (unknown) : 1990 Acct:[id number] (units unknown) (unknown) (unknown) (no date) (unknown) (unknown) Date of Service: 07/12/22 (units unknown) (unknown) (unknown) (no date) (unknown) (unknown) Departure (units unknown) (unknown) (unknown) (no date) (unknown) (unknown) Differential diagnoses include but are not limited to: Alcohol withdrawal, (units unknown) (unknown) (unknown) (no date) (unknown) (unknown) Discharge Plan (units unknown) (unknown) (unknown) (no date) (unknown) (unknown) Discontinued Medications (units unknown) (unknown) (unknown) (no date) (unknown) (unknown) ECG Data (units unknown) (unknown) (unknown) (no date) (unknown) (unknown) ED Orders (units unknown) (unknown) (unknown) (no date) (unknown) (unknown) EKG independently reviewed by myself at [] reveals normal sinus rhythm at [] bpm (units unknown) (unknown) (unknown) (no date) (unknown) (unknown) EKG-12 Lead Stat (units unknown) (unknown) (unknown) (no date) (unknown) (unknown) ER Physician: Juliet Paz (units unknown) (unknown) (unknown) (no date) (unknown) (unknown) Emergency Report (units unknown) (unknown) (unknown) (no date) (unknown) (unknown) Esterase (units unknown) (unknown) (unknown) (no date) (unknown) (unknown) Ethanol (ETOH) Stat (units unknown) (unknown) (unknown) (no date) (unknown) (unknown) Exam Narrative: (units unknown) (unknown) (unknown) (no date) (unknown) (unknown) Exam (units unknown) (unknown) (unknown) (no date) (unknown) (unknown) Family History (units unknown) (unknown) (unknown) (no date) (unknown) (unknown) Family/Other Alcoholism (units unknown) (unknown) (unknown) (no date) (unknown) (unknown) Family/Other Diabete s mellitus (units unknown) (unknown) (unknown) (no date) (unknown) (unknown) Father Alcoholism (units unknown) (unknown) (unknown) (no date) (unknown) (unknown) Tonia Schneider MD [Primary Care Provider] (units unknown) (unknown) (unknown) (no date) (unknown) (unknown) Folic Acid (Folic Acid 1 Mg Tablet) 1 mg PO DAILY SANDY (units unknown) (unknown) (unknown) (no date) (unknown) (unknown) Free T4, Direct Thyroxine Stat (units unknown) (unknown) (unknown) (no date) (unknown) (unknown) GI: abdomen soft, nontender to palpation, nondistended, without masses, rebound (units unknown) (unknown) (unknown) (no date) (unknown) (unknown) General (units unknown) (unknown) (unknown) (no date) (unknown) (unknown) General: cooperative , comfortable, in no acute distress, well groomed, appears (units unknown) (unknown) (unknown) (no date) (unknown) (unknown) Grandfather Smoker (units unknown) (unknown) (unknown) (no date) (unknown) (unknown) Grandfather Unknown whether patient has any health problems (units unknown) (unknown) (unknown) (no date) (unknown) (unknown) Grandmother Diabetes mellitus (units unknown) (unknown) (unknown) (no date) (unknown) (unknown) Grandmother Hypoglycemia (units unknown) (unknown) (unknown) (no date) (unknown) (unknown) H/O dilation and curettage (-12/14/16) (units unknown) (unknown) (unknown) (no date) (unknown) (unknown) H/O wisdom tooth extraction () (units unknown) (unknown) (unknown) (no date) (unknown) (unknown) HEENT: symmetrical facial expressions, dry mucous membranes (units unknown) (unknown) (unknown) (no date) (unknown) (unknown) HPI - Alcohol (units unknown) (unknown) (unknown) (no date) (unknown) (unknown) HPI narrative: (units unknown) (unknown) (unknown) (no date) (unknown) (unknown) Headache/fullness in head ?> 1 = Very mild (units unknown) (unknown) (unknown) (no date) (unknown) (unknown) History of Present Illness (units unknown) (unknown) (unknown) (no date) (unknown) (unknown) Home Medications (units unknown) (unknown) (unknown) (no date) (unknown) (unknown) I have independently reviewed the patient's vital signs and nursing notes as (units unknown) (unknown) (unknown) (no date) (unknown) (unknown) INPUTS: (units unknown) (unknown) (unknown) (no date) (unknown) (unknown) Independent historian: Patient (units unknown) (unknown) (unknown) (no date) (unknown) (unknown) Initial Vital Signs (units unknown) (unknown) (unknown) (no date) (unknown) (unknown) Initial Vital Signs: (units unknown) (unknown) (unknown) (no date) (unknown) (unknown) Insomnia (units unknown) (unknown) (unknown) (no date) (unknown) (unknown) Interpretation: (units unknown) (unknown) (unknown) (no date) (unknown) (unknown) [address] [address] (units unknown) (unknown) (unknown) (no date) (unknown) (unknown) Lab Data (units unknown) (unknown) (unknown) (no date) (unknown) (unknown) Lab Results (units unknown) (unknown) (unknown) (no date) (unknown) (unknown) Labs: (units unknown) (unknown) (unknown) (no date) (unknown) (unknown) Lorazepam (Lorazepam 2 Mg/Ml Inj) 2 mg IV NOW ONE (units unknown) (unknown) (unknown) (no date) (unknown) (unknown) MDM - Alcohol (units unknown) (unknown) (unknown) (no date) (unknown) (unknown) MDM Narrative (units unknown) (unknown) (unknown) (no date) (unknown) (unknown) MIPS: This encounter doesn't have any diagnosis' associated with MIPS criteria. (units unknown) (unknown) (unknown) (no date) (unknown) (unknown) MSK: moves all extremities, neurovascularly intact, no weakness, normal tone no (units unknown) (unknown) (unknown) (no date) (unknown) (unknown) Medical History (units unknown) (unknown) (unknown) (no date) (unknown) (unknown) Medical decision making narrative: (units unknown) (unknown) (unknown) (no date) (unknown) (unknown) Medication Instructions Recorded Confirmed (units unknown) (unknown) (unknown) (no date) (unknown) (unknown) Medication Instructions Recorded (units unknown) (unknown) (unknown) (no date) (unknown) (unknown) Menometrorrhagia (units unknown) (unknown) (unknown) (no date) (unknown) (unknown) Mode of arrival: Ambulatory (units unknown) (unknown) (unknown) (no date) (unknown) (unknown) Mother Diabetes mellitus (units unknown) (unknown) (unknown) (no date) (unknown) (unknown) Narrative (units unknown) (unknown) (unknown) (no date) (unknown) (unknown) Nausea/vomiting ?> 0 = No nausea and no vomiting (units unknown) (unknown) (unknown) (no date) (unknown) (unknown) Neuro: normal speech and cognition, A+O x3, ambulatory, clear speech (units unknown) (unknown) (unknown) (no date) (unknown) (unknown) No Action (units unknown) (unknown) (unknown) (no date) (unknown) (unknown) Obesity (units unknown) (unknown) (unknown) (no date) (unknown) (unknown) Ondansetron HCl (Ondansetron 4 Mg/2 Ml Inj) 4 mg IV Q6HR PRN (units unknown) (unknown) (unknown) (no date) (unknown) (unknown) Ordered: (units unknown) (unknown) (unknown) (no date) (unknown) (unknown) Orders (units unknown) (unknown) (unknown) (no date) (unknown) (unknown) Orientation/clouding of sensorium ?> 0 = Oriented, can do serial additions (units unknown) (unknown) (unknown) (no date) (unknown) (unknown) Overweight (units unknown) (unknown) (unknown) (no date) (unknown) (unknown) Oxygen Delivery Method Room Air 07/12/22 16:10 (units unknown) (unknown) (unknown) (no date) (unknown) (unknown) Oxygen Delivery Method Room Air (units unknown) (unknown) (unknown) (no date) (unknown) (unknown) PRN Reason: Nausea And Vomiting (units unknown) (unknown) (unknown) (no date) (unknown) (unknown) Paroxysmal sweats ?> 0 = No sweat visible (units unknown) (unknown) (unknown) (no date) (unknown) (unknown) Patient History (units unknown) (unknown) (unknown) (no date) (unknown) (unknown) Patient is appropriate for outpatient management. (units unknown) (unknown) (unknown) (no date) (unknown) (unknown) Patient: Sarah Connors MR#: M (units unknown) (unknown) (unknown) (no date) (unknown) (unknown) Patients with scores >= may require medication for withdrawal. (units unknown) (unknown) (unknown) (no date) (unknown) (unknown) Pertinent lab findings reviewed: (units unknown) (unknown) (unknown) (no date) (unknown) (unknown) Point of Care Testing (units unknown) (unknown) (unknown) (no date) (unknown) (unknown) Test Results Negative (units unknown) (unknown) (unknown) (no date) (unknown) (unknown) Prescriptions: (units unknown) (unknown) (unknown) (no date) (unknown) (unknown) Previous Rx's (units unknown) (unknown) (unknown) (no date) (unknown) (unknown) Psych: mental status is grossly normal, congruent mood, normal affect, pleasant (units unknown) (unknown) (unknown) (no date) (unknown) (unknown) Pulse Oximetry 99 07/12/22 16:10 (units unknown) (unknown) (unknown) (no date) (unknown) (unknown) Pulse Oximetry 99 (units unknown) (unknown) (unknown) (no date) (unknown) (unknown) Pulse Rate 82 07/12/22 16:10 (units unknown) (unknown) (unknown) (no date) (unknown) (unknown) Pulse Rate 82 (units unknown) (unknown) (unknown) (no date) (unknown) (unknown) Questions are addressed and there is agreement with the plan and for follow-up. (units unknown) (unknown) (unknown) (no date) (unknown) (unknown) RESULT SUMMARY: (units unknown) (unknown) (unknown) (no date) (unknown) (unknown) ROS Unobtainable: Al l systems reviewed + are unremarkable except as noted in HPI (units unknown) (unknown) (unknown) (no date) (unknown) (unknown) Referrals: (units unknown) (unknown) (unknown) (no date) (unknown) (unknown) Related Data (units unknown) (unknown) (unknown) (no date) (unknown) (unknown) Respiratory Rate 14 07/12/22 16:10 (units unknown) (unknown) (unknown) (no date) (unknown) (unknown) Respiratory Rate 14 (units unknown) (unknown) (unknown) (no date) (unknown) (unknown) Respiratory: normal effort, able to speak in complete sentences, without (units unknown) (unknown) (unknown) (no date) (unknown) (unknown) Review of Systems (units unknown) (unknown) (unknown) (no date) (unknown) (unknown) Reviewed vitals sign s and nursing notes. (units unknown) (unknown) (unknown) (no date) (unknown) (unknown) S/P myringotomy with insertion of tube (units unknown) (unknown) (unknown) (no date) (unknown) (unknown) SARS-CoV-2 (PCR) Negative (Negative) (units unknown) (unknown) (unknown) (no date) (unknown) (unknown) (spontaneous vaginal delivery) (-09/05/18) (units unknown) (unknown) (unknown) (no date) (unknown) (unknown) Salicylate Stat (units unknown) (unknown) (unknown) (no date) (unknown) (unknown) Signed By: (units unknown) (unknown) (unknown) (no date) (unknown) (unknown) Skin: brisk capillar y refill, without pallor or erythema (units unknown) (unknown) (unknown) (no date) (unknown) (unknown) Smoker (units unknown) (unknown) (unknown) (no date) (unknown) (unknown) Smoking Status: Former smoker (units unknown) (unknown) (unknown) (no date) (unknown) (unknown) Social History (units unknown) (unknown) (unknown) (no date) (unknown) (unknown) Social consideration s that may affect disposition: none (units unknown) (unknown) (unknown) (no date) (unknown) (unknown) Sodium Chloride (Normal Saline 0.9%) 1,000 mls @ 1,000 mls/hr IV BOLUS ONE (units unknown) (unknown) (unknown) (no date) (unknown) (unknown) Source: patient (units unknown) (unknown) (unknown) (no date) (unknown) (unknown) Stated Complaint: Stress/Depression (units unknown) (unknown) (unknown) (no date) (unknown) (unknown) Stop: 07/12/22 17:33 (units unknown) (unknown) (unknown) (no date) (unknown) (unknown) Stop: 07/12/22 17:45 (units unknown) (unknown) (unknown) (no date) (unknown) (unknown) Stop: 07/12/22 18:31 (units unknown) (unknown) (unknown) (no date) (unknown) (unknown) Substance Use Type: does not use (units unknown) (unknown) (unknown) (no date) (unknown) (unknown) Surgical History (units unknown) (unknown) (unknown) (no date) (unknown) (unknown) Tactile disturbances ?> 1 = Very mild itching, pin and needles, burning, or (units unknown) (unknown) (unknown) (no date) (unknown) (unknown) Temperature 97.2 F L 07/12/22 16:10 (units unknown) (unknown) (unknown) (no date) (unknown) (unknown) Temperature 97.2 F L (units unknown) (unknown) (unknown) (no date) (unknown) (unknown) Thiamine HCl 200 mg/ Sodium (Chloride) 102 mls @ 408 mls/hr IV NOW ONE (units unknown) (unknown) (unknown) (no date) (unknown) (unknown) This is a 31-year-ol d female with history of alcohol abuse and appears to have (units unknown) (unknown) (unknown) (no date) (unknown) (unknown) Thyroid Stimulating Hormone Stat (units unknown) (unknown) (unknown) (no date) (unknown) (unknown) Time Seen by Provider: 07/12/22 17:05 (units unknown) (unknown) (unknown) (no date) (unknown) (unknown) Tremor ?> 1 = Not visible, but can be felt fingertip to fingertip (units unknown) (unknown) (unknown) (no date) (unknown) (unknown) U Benzodiazepines Scrn Negative (Negative) (units unknown) (unknown) (unknown) (no date) (unknown) (unknown) U Marijuana (THC) Screen Negative (Negative) (units unknown) (unknown) (unknown) (no date) (unknown) (unknown) U Methamphetamines Scrn Negative (Negative) (units unknown) (unknown) (unknown) (no date) (unknown) (unknown) U Opiates 300ng/mL cut Negative (Negative) (units unknown) (unknown) (unknown) (no date) (unknown) (unknown) U Tricyclic Antidepress Negative (Negative) (units unknown) (unknown) (unknown) (no date) (unknown) (unknown) Ur Amphetamines Screen Negative (Negative) (units unknown) (unknown) (unknown) (no date) (unknown) (unknown) Ur Barbiturates Screen Negative (Negative) (units unknown) (unknown) (unknown) (no date) (unknown) (unknown) Ur MDMA Scrn (Ecstasy) Negative (Negative) (units unknown) (unknown) (unknown) (no date) (unknown) (unknown) Ur Oxycodone Screen Negative (Negative) (units unknown) (unknown) (unknown) (no date) (unknown) (unknown) Ur Phencyclidine Scr n Negative (Negative) (units unknown) (unknown) (unknown) (no date) (unknown) (unknown) Urine Cocaine Screen Negative (Negative) (units unknown) (unknown) (unknown) (no date) (unknown) (unknown) Urine Dip (units unknown) (unknown) (unknown) (no date) (unknown) (unknown) Urine Drug Screen, Rapid Stat (units unknown) (unknown) (unknown) (no date) (unknown) (unknown) Urine Methadone Screen Negative (Negative) (units unknown) (unknown) (unknown) (no date) (unknown) (unknown) Urine Microscopic Stat (units unknown) (unknown) (unknown) (no date) (unknown) (unknown) Urine Specific [place] 1.015 (units unknown) (unknown) (unknown) (no date) (unknown) (unknown) Visual disturbances ?> 1 = Very mild sensitivity (units unknown) (unknown) (unknown) (no date) (unknown) (unknown) Vital Signs - 8 hr (units unknown) (unknown) (unknown) (no date) (unknown) (unknown) Vital Signs (units unknown) (unknown) (unknown) (no date) (unknown) (unknown) Vital signs: (units unknown) (unknown) (unknown) (no date) (unknown) (unknown) [METOCLOPRAMIDE] (units unknown) (unknown) (unknown) (no date) (unknown) (unknown) acetaminophen 325 mg tablet 325 mg PO Q6H PRN pain #20 tabs 02/05/20 (units unknown) (unknown) (unknown) (no date) (unknown) (unknown) acetaminophen [Tylenol] 325 mg tablet (units unknown) (unknown) (unknown) (no date) (unknown) (unknown) acute ischemic changes. (units unknown) (unknown) (unknown) (no date) (unknown) (unknown) alcohol in 300s, she was last here in the emergency department in May of (units unknown) (unknown) (unknown) (no date) (unknown) (unknown) alcohol intake frequency: 3 or more drinks per day (units unknown) (unknown) (unknown) (no date) (unknown) (unknown) alcohol intake: former (units unknown) (unknown) (unknown) (no date) (unknown) (unknown) and below (units unknown) (unknown) (unknown) (no date) (unknown) (unknown) and cooperative (units unknown) (unknown) (unknown) (no date) (unknown) (unknown) at extension and states that she feels symptoms of alcohol withdrawal. Denies (units unknown) (unknown) (unknown) (no date) (unknown) (unknown) current occupational exposures/hazards: Yes (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 with Pandemic ) (units unknown) (unknown) (unknown) (no date) (unknown) (unknown) diarrhea or current stool changes. (units unknown) (unknown) (unknown) (no date) (unknown) (unknown) diphenhydramine HCl 25 mg capsule 25 mg PO BEDTIME PRN insomnia #20 02/05/20 (units unknown) (unknown) (unknown) (no date) (unknown) (unknown) diphenhydramine HCl [Benadryl] 25 mg capsule (units unknown) (unknown) (unknown) (no date) (unknown) (unknown) docusate sodium 100 mg capsule 100 mg PO BID #30 caps 02/05/20 (units unknown) (unknown) (unknown) (no date) (unknown) (unknown) docusate sodium [Colace] 100 mg capsule (units unknown) (unknown) (unknown) (no date) (unknown) (unknown) education level: college 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[employer] (units unknown) (unknown) (unknown) (no date) (unknown) (unknown) fluid, EtOH, and CIWA, ordered 2 mg of IV lorazepam for patient's symptoms, (units unknown) (unknown) (unknown) (no date) (unknown) (unknown) for alcohol related complaints through 2019, and she presented to the [facility] (units unknown) (unknown) (unknown) (no date) (unknown) (unknown) household members: spouse and children (units unknown) (unknown) (unknown) (no date) (unknown) (unknown) hydrocodone [HYDROCODONE] AdvReac Unknown VOMITING Verified 07/12/22 16:18 (units unknown) (unknown) (unknown) (no date) (unknown) (unknown) ibuprofen 600 mg Tablet (units unknown) (unknown) (unknown) (no date) (unknown) (unknown) ibuprofen 600 mg tablet 600 mg PO Q6HR PRN Pain, Mild 07/04/20 (units unknown) (unknown) (unknown) (no date) (unknown) (unknown) injuries, denies chance of , denies any other ingestions, is pleasant, (units unknown) (unknown) (unknown) (no date) (unknown) (unknown) intoxicated, pleasant, interactive and comfortable although active and fidgeting (units unknown) (unknown) (unknown) (no date) (unknown) (unknown) limited history currently due to intoxication. She states that she is recently (units unknown) (unknown) (unknown) (no date) (unknown) (unknown) marital status: (units unknown) (unknown) (unknown) (no date) (unknown) (unknown) metoclopramide Allergy Mild RASH/HIVES Verified 07/12/22 16:18 (units unknown) (unknown) (unknown) (no date) (unknown) (unknown) nausea vomiting or abdominal pain at this time. Denies any vomiting home or (units unknown) (unknown) (unknown) (no date) (unknown) (unknown) number of children: 1 (units unknown) (unknown) (unknown) (no date) (unknown) (unknown) numbness (units unknown) (unknown) (unknown) (no date) (unknown) (unknown) occupational status: employed (units unknown) (unknown) (unknown) (no date) (unknown) (unknown) ondansetron 4 mg disintegrating 4 mg PO Q6H PRN nausea and 06/12/22 (units unknown) (unknown) (unknown) (no date) (unknown) (unknown) ondansetron 4 mg disintegrating 4 mg PO Q8H PRN nausea and 01/01/20 (units unknown) (unknown) (unknown) (no date) (unknown) (unknown) ondansetron 4 mg disintegrating 4 mg PO Q8H PRN nausea and 02/05/20 (units unknown) (unknown) (unknown) (no date) (unknown) (unknown) ondansetron 4 mg tablet,disintegrating (units unknown) (unknown) (unknown) (no date) (unknown) (unknown) prenat.vits,otis,min- i thang-folic 1 tab PO DAILY 12/30/19 07/03/20 (units unknown) (unknown) (unknown) (no date) (unknown) (unknown) prenat.vits,otis,min- i thang-folic Tablet (units unknown) (unknown) (unknown) (no date) (unknown) (unknown) relapsed due to a divorce with her . She used to be a frequent visitor (units unknown) (unknown) (unknown) (no date) (unknown) (unknown) second hand exposure : No (growing up as a child - not currently) (units unknown) (unknown) (unknown) (no date) (unknown) (unknown) seeking help with he r intoxication and wishes to go to detox. (units unknown) (unknown) (unknown) (no date) (unknown) (unknown) significant tremor o r tongue fasciculation, she has a mild tremor with her arms (units unknown) (unknown) (unknown) (no date) (unknown) (unknown) social work and orders are pending (units unknown) (unknown) (unknown) (no date) (unknown) (unknown) special renee needs: No (units unknown) (unknown) (unknown) (no date) (unknown) (unknown) substance abuse, alcohol intoxication, psychosis, mood disorder, depression (units unknown) (unknown) (unknown) (no date) (unknown) (unknown) substance use type: does not use (units unknown) (unknown) (unknown) (no date) (unknown) (unknown) tablet vomiting #14 tabs (units unknown) (unknown) (unknown) (no date) (unknown) (unknown) tablet vomiting #20 tabs (units unknown) (unknown) (unknown) (no date) (unknown) (unknown) tablet vomiting #30 tabs (units unknown) (unknown) (unknown) (no date) (unknown) (unknown) tenderness or exquisite tenderness with exam. (units unknown) (unknown) (unknown) (no date) (unknown) (unknown) that she drinks vodk a and admits to drinking heavily today, states that she took (units unknown) (unknown) (unknown) (no date) (unknown) (unknown) the bottle upside down and started checking from it. She denies any recent (units unknown) (unknown) (unknown) (no date) (unknown) (unknown) tramadol 50 mg table t 50 mg PO Q6H PRN pain #10 tabs 06/12/22 (units unknown) (unknown) (unknown) (no date) (unknown) (unknown) tramadol 50 mg tablet (units unknown) (unknown) (unknown) (no date) (unknown) (unknown) well as prior record s if available. (units unknown) (unknown) (unknown) (no date) (unknown) (unknown) wheezing, stridor, o r abnormal breath sounds. No retractions or tachypnea. (units unknown) (unknown) (unknown) (no date) (unknown) (unknown) with regular axis an d intervals. No STEMI, ST segment changes, arrhythmia, or (units unknown) (unknown) Result panel 2170 (unknown) (no date) (unknown) (unknown) (no value) (units unknown) (unknown) (unknown) (no date) (unknown) (unknown) (1-3) #30 tabs (units unknown) (unknown) (unknown) (no date) (unknown) (unknown) (Benadryl) caps (units unknown) (unknown) (unknown) (no date) (unknown) (unknown) (Colace) (units unknown) (unknown) (unknown) (no date) (unknown) (unknown) (Tylenol) (units unknown) (unknown) (unknown) (no date) (unknown) (unknown) [id number] (units unknown) (unknown) (unknown) (no date) (unknown) (unknown) 07/12/22 07/12/22 Range/Units (units unknown) (unknown) (unknown) (no date) (unknown) (unknown) 07/12/22 16:28 (units unknown) (unknown) (unknown) (no date) (unknown) (unknown) 07/12/22 16:32 (units unknown) (unknown) (unknown) (no date) (unknown) (unknown) 07/12/22 17:44 (units unknown) (unknown) (unknown) (no date) (unknown) (unknown) 07/12/22 (units unknown) (unknown) (unknown) (no date) (unknown) (unknown) 1 tab PO DAILY (units unknown) (unknown) (unknown) (no date) (unknown) (unknown) 100 mg PO BID Qty: 3 0 0RF (units unknown) (unknown) (unknown) (no date) (unknown) (unknown) 16:10 (units unknown) (unknown) (unknown) (no date) (unknown) (unknown) 16:32 16:32 (units unknown) (unknown) (unknown) (no date) (unknown) (unknown) 1835 patient still does not have an IV, has not received any IV fluid her (units unknown) (unknown) (unknown) (no date) (unknown) (unknown) 2022 with similar symptoms. She comes in complaining of needing help, states (units unknown) (unknown) (unknown) (no date) (unknown) (unknown) 25 mg PO BEDTIME PRN (Reason: insomnia) Qty: 20 0RF (units unknown) (unknown) (unknown) (no date) (unknown) (unknown) 325 mg PO Q6H PRN (Reason: pain) Qty: 20 0RF (units unknown) (unknown) (unknown) (no date) (unknown) (unknown) 4 mg PO Q6H PRN (Reason: nausea and vomiting) Qty: 14 0RF (units unknown) (unknown) (unknown) (no date) (unknown) (unknown) 4 mg PO Q8H PRN (Reason: nausea and vomiting) Qty: 20 0RF (units unknown) (unknown) (unknown) (no date) (unknown) (unknown) 4 mg PO Q8H PRN (Reason: nausea and vomiting) Qty: 30 0RF (units unknown) (unknown) (unknown) (no date) (unknown) (unknown) 50 mg PO Q6H PRN (Reason: pain) Qty: 10 0RF (units unknown) (unknown) (unknown) (no date) (unknown) (unknown) 600 mg PO Q6HR PRN (Reason: Pain, Mild (1-3)) Qty: 30 0RF (units unknown) (unknown) (unknown) (no date) (unknown) (unknown) 9 points (units unknown) (unknown) (unknown) (no date) (unknown) (unknown) Acetaminophen Stat (units unknown) (unknown) (unknown) (no date) (unknown) (unknown) Age/Sex: 31 / F (units unknown) (unknown) (unknown) (no date) (unknown) (unknown) Agitation ?> 2 = (More severe symptoms) (units unknown) (unknown) (unknown) (no date) (unknown) (unknown) Alcoholism (units unknown) (unknown) (unknown) (no date) (unknown) (unknown) Allergies (units unknown) (unknown) (unknown) (no date) (unknown) (unknown) Allergy/AdvReac Type Severity Reaction Status Date / Time (units unknown) (unknown) (unknown) (no date) (unknown) (unknown) Anemia (-2018) (units unknown) (unknown) (unknown) (no date) (unknown) (unknown) Anxiety ?> 2 = (More severe symptoms) (units unknown) (unknown) (unknown) (no date) (unknown) (unknown) Auditory disturbance s ?> 1 = Very mild harshness or ability to frighten (units unknown) (unknown) (unknown) (no date) (unknown) (unknown) Bedside Urine Bilirubin - Negative (units unknown) (unknown) (unknown) (no date) (unknown) (unknown) Bedside Urine Glucos e Negative (units unknown) (unknown) (unknown) (no date) (unknown) (unknown) Bedside Urine Ketone - Negative (units unknown) (unknown) (unknown) (no date) (unknown) (unknown) Bedside Urine Leukocytes - Negative (units unknown) (unknown) (unknown) (no date) (unknown) (unknown) Bedside Urine Nitrit e + Positive (units unknown) (unknown) (unknown) (no date) (unknown) (unknown) Bedside Urine Occult Blood - Negative (units unknown) (unknown) (unknown) (no date) (unknown) (unknown) Bedside Urine Protei n - Negative (units unknown) (unknown) (unknown) (no date) (unknown) (unknown) Bedside Urine Urobilinogen - Negative (units unknown) (unknown) (unknown) (no date) (unknown) (unknown) Bedside Urine pH 6.0 (units unknown) (unknown) (unknown) (no date) (unknown) (unknown) Blood Pressure 112/6 2 07/12/22 16:10 (units unknown) (unknown) (unknown) (no date) (unknown) (unknown) Blood Pressure 112/62 (units unknown) (unknown) (unknown) (no date) (unknown) (unknown) CIWA is now worse an d she has tremors, anxiety is worsening and agitation, (units unknown) (unknown) (unknown) (no date) (unknown) (unknown) CIWA-Ar for Alcohol Withdrawal from [email or web address] on 07/12/2022 (units unknown) (unknown) (unknown) (no date) (unknown) (unknown) COVID19 -Nasal RAPID/Pre-Proc Stat (units unknown) (unknown) (unknown) (no date) (unknown) (unknown) Cardiovascular: regular rate and rhythm, no peripheral edema, warm extremities (units unknown) (unknown) (unknown) (no date) (unknown) (unknown) Chief Complaint: Alcohol intoxication, seeking detox (units unknown) (unknown) (unknown) (no date) (unknown) (unknown) Chief Complaint: Toxicology Problem (units unknown) (unknown) (unknown) (no date) (unknown) (unknown) Clinical decision rules or scores evaluated: CIWA of 9 at 1753 (units unknown) (unknown) (unknown) (no date) (unknown) (unknown) Complete Blood Count AUTO DIFF Stat (units unknown) (unknown) (unknown) (no date) (unknown) (unknown) Comprehensive Metabolic Panel Stat (units unknown) (unknown) (unknown) (no date) (unknown) (unknown) 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 (units unknown) (unknown) (unknown) (no date) (unknown) (unknown) Course of care: Patient is a difficult IV stick, ordered IV with lab work, (units unknown) (unknown) (unknown) (no date) (unknown) (unknown) Course (units unknown) (unknown) (unknown) (no date) (unknown) (unknown) : 1990 Acct:[id number] (units unknown) (unknown) (unknown) (no date) (unknown) (unknown) Date of Service: 07/12/22 (units unknown) (unknown) (unknown) (no date) (unknown) (unknown) Departure (units unknown) (unknown) (unknown) (no date) (unknown) (unknown) Differential diagnoses include but are not limited to: Alcohol withdrawal, (units unknown) (unknown) (unknown) (no date) (unknown) (unknown) Discharge Plan (units unknown) (unknown) (unknown) (no date) (unknown) (unknown) Discontinued Medications (units unknown) (unknown) (unknown) (no date) (unknown) (unknown) ECG Data (units unknown) (unknown) (unknown) (no date) (unknown) (unknown) ED Orders (units unknown) (unknown) (unknown) (no date) (unknown) (unknown) EKG independently reviewed by myself at [] reveals normal sinus rhythm at [] bpm (units unknown) (unknown) (unknown) (no date) (unknown) (unknown) EKG-12 Lead Stat (units unknown) (unknown) (unknown) (no date) (unknown) (unknown) ER Physician: Juliet Paz (units unknown) (unknown) (unknown) (no date) (unknown) (unknown) Emergency Report (units unknown) (unknown) (unknown) (no date) (unknown) (unknown) Esterase (units unknown) (unknown) (unknown) (no date) (unknown) (unknown) Ethanol (ETOH) Stat (units unknown) (unknown) (unknown) (no date) (unknown) (unknown) Exam Narrative: (units unknown) (unknown) (unknown) (no date) (unknown) (unknown) Exam (units unknown) (unknown) (unknown) (no date) (unknown) (unknown) Family History (units unknown) (unknown) (unknown) (no date) (unknown) (unknown) Family/Other Alcoholism (units unknown) (unknown) (unknown) (no date) (unknown) (unknown) Family/Other Diabete s mellitus (units unknown) (unknown) (unknown) (no date) (unknown) (unknown) Father Alcoholism (units unknown) (unknown) (unknown) (no date) (unknown) (unknown) Tonia Schneider MD [Primary Care Provider] (units unknown) (unknown) (unknown) (no date) (unknown) (unknown) Folic Acid (Folic Acid 1 Mg Tablet) 1 mg PO DAILY SANDY (units unknown) (unknown) (unknown) (no date) (unknown) (unknown) Free T4, Direct Thyroxine Stat (units unknown) (unknown) (unknown) (no date) (unknown) (unknown) GI: abdomen soft, nontender to palpation, nondistended, without masses, rebound (units unknown) (unknown) (unknown) (no date) (unknown) (unknown) General (units unknown) (unknown) (unknown) (no date) (unknown) (unknown) General: cooperative , comfortable, in no acute distress, well groomed, appears (units unknown) (unknown) (unknown) (no date) (unknown) (unknown) Grandfather Smoker (units unknown) (unknown) (unknown) (no date) (unknown) (unknown) Grandfather Unknown whether patient has any health problems (units unknown) (unknown) (unknown) (no date) (unknown) (unknown) Grandmother Diabetes mellitus (units unknown) (unknown) (unknown) (no date) (unknown) (unknown) Grandmother Hypoglycemia (units unknown) (unknown) (unknown) (no date) (unknown) (unknown) H/O dilation and curettage (-12/14/16) (units unknown) (unknown) (unknown) (no date) (unknown) (unknown) H/O wisdom tooth extraction () (units unknown) (unknown) (unknown) (no date) (unknown) (unknown) HEENT: symmetrical facial expressions, dry mucous membranes (units unknown) (unknown) (unknown) (no date) (unknown) (unknown) HPI - Alcohol (units unknown) (unknown) (unknown) (no date) (unknown) (unknown) HPI narrative: (units unknown) (unknown) (unknown) (no date) (unknown) (unknown) Headache/fullness in head ?> 1 = Very mild (units unknown) (unknown) (unknown) (no date) (unknown) (unknown) History of Present Illness (units unknown) (unknown) (unknown) (no date) (unknown) (unknown) Home Medications (units unknown) (unknown) (unknown) (no date) (unknown) (unknown) I have independently reviewed the patient's vital signs and nursing notes as (units unknown) (unknown) (unknown) (no date) (unknown) (unknown) INPUTS: (units unknown) (unknown) (unknown) (no date) (unknown) (unknown) Independent historian: Patient (units unknown) (unknown) (unknown) (no date) (unknown) (unknown) Initial Vital Signs (units unknown) (unknown) (unknown) (no date) (unknown) (unknown) Initial Vital Signs: (units unknown) (unknown) (unknown) (no date) (unknown) (unknown) Insomnia (units unknown) (unknown) (unknown) (no date) (unknown) (unknown) Interpretation: (units unknown) (unknown) (unknown) (no date) (unknown) (unknown) [address] [address] (units unknown) (unknown) (unknown) (no date) (unknown) (unknown) Lab Data (units unknown) (unknown) (unknown) (no date) (unknown) (unknown) Lab Results (units unknown) (unknown) (unknown) (no date) (unknown) (unknown) Labs: (units unknown) (unknown) (unknown) (no date) (unknown) (unknown) Lorazepam (Lorazepam 0.5 Mg Tablet) 1 mg PO NOW ONE (units unknown) (unknown) (unknown) (no date) (unknown) (unknown) Lorazepam (Lorazepam 2 Mg/Ml Inj) 2 mg IV NOW ONE (units unknown) (unknown) (unknown) (no date) (unknown) (unknown) MDM - Alcohol (units unknown) (unknown) (unknown) (no date) (unknown) (unknown) MDM Narrative (units unknown) (unknown) (unknown) (no date) (unknown) (unknown) MIPS: This encounter doesn't have any diagnosis' associated with MIPS criteria. (units unknown) (unknown) (unknown) (no date) (unknown) (unknown) MSK: moves all extremities, neurovascularly intact, no weakness, normal tone no (units unknown) (unknown) (unknown) (no date) (unknown) (unknown) Medical History (units unknown) (unknown) (unknown) (no date) (unknown) (unknown) Medical decision making narrative: (units unknown) (unknown) (unknown) (no date) (unknown) (unknown) Medication Instructions Recorded Confirmed (units unknown) (unknown) (unknown) (no date) (unknown) (unknown) Medication Instructions Recorded (units unknown) (unknown) (unknown) (no date) (unknown) (unknown) Menometrorrhagia (units unknown) (unknown) (unknown) (no date) (unknown) (unknown) Mode of arrival: Ambulatory (units unknown) (unknown) (unknown) (no date) (unknown) (unknown) Mother Diabetes mellitus (units unknown) (unknown) (unknown) (no date) (unknown) (unknown) Narrative (units unknown) (unknown) (unknown) (no date) (unknown) (unknown) Nausea/vomiting ?> 0 = No nausea and no vomiting (units unknown) (unknown) (unknown) (no date) (unknown) (unknown) Neuro: normal speech and cognition, A+O x3, ambulatory, clear speech (units unknown) (unknown) (unknown) (no date) (unknown) (unknown) No Action (units unknown) (unknown) (unknown) (no date) (unknown) (unknown) Obesity (units unknown) (unknown) (unknown) (no date) (unknown) (unknown) Ondansetron HCl (Ondansetron 4 Mg Odt) 4 mg SL NOW ONE (units unknown) (unknown) (unknown) (no date) (unknown) (unknown) Ondansetron HCl (Ondansetron 4 Mg/2 Ml Inj) 4 mg IV Q6HR PRN (units unknown) (unknown) (unknown) (no date) (unknown) (unknown) Ordered: (units unknown) (unknown) (unknown) (no date) (unknown) (unknown) Orders (units unknown) (unknown) (unknown) (no date) (unknown) (unknown) Orientation/clouding of sensorium ?> 0 = Oriented, can do serial additions (units unknown) (unknown) (unknown) (no date) (unknown) (unknown) Overweight (units unknown) (unknown) (unknown) (no date) (unknown) (unknown) Oxygen Delivery Method Room Air 03/02/23 16:10 (units unknown) (unknown) (unknown) (no date) (unknown) (unknown) Oxygen Delivery Method Room Air (units unknown) (unknown) (unknown) (no date) (unknown) (unknown) PRN Reason: Nausea And Vomiting (units unknown) (unknown) (unknown) (no date) (unknown) (unknown) Paroxysmal sweats ?> 0 = No sweat visible (units unknown) (unknown) (unknown) (no date) (unknown) (unknown) Patient History (units unknown) (unknown) (unknown) (no date) (unknown) (unknown) Patient is appropriate for outpatient management. (units unknown) (unknown) (unknown) (no date) (unknown) (unknown) Patient: Sarah Connors MR#: M (units unknown) (unknown) (unknown) (no date) (unknown) (unknown) Patients with scores >= may require medication for withdrawal. (units unknown) (unknown) (unknown) (no date) (unknown) (unknown) Pertinent lab findings reviewed: (units unknown) (unknown) (unknown) (no date) (unknown) (unknown) Point of Care Testing (units unknown) (unknown) (unknown) (no date) (unknown) (unknown) Test Results Negative (units unknown) (unknown) (unknown) (no date) (unknown) (unknown) Prescriptions: (units unknown) (unknown) (unknown) (no date) (unknown) (unknown) Previous Rx's (units unknown) (unknown) (unknown) (no date) (unknown) (unknown) Psych: mental status is grossly normal, congruent mood, normal affect, pleasant (units unknown) (unknown) (unknown) (no date) (unknown) (unknown) Pulse Oximetry 99 07/12/22 16:10 (units unknown) (unknown) (unknown) (no date) (unknown) (unknown) Pulse Oximetry 99 (units unknown) (unknown) (unknown) (no date) (unknown) (unknown) Pulse Rate 82 07/12/22 16:10 (units unknown) (unknown) (unknown) (no date) (unknown) (unknown) Pulse Rate 82 (units unknown) (unknown) (unknown) (no date) (unknown) (unknown) Questions are addressed and there is agreement with the plan and for follow-up. (units unknown) (unknown) (unknown) (no date) (unknown) (unknown) RESULT SUMMARY: (units unknown) (unknown) (unknown) (no date) (unknown) (unknown) ROS Unobtainable: Al l systems reviewed + are unremarkable except as noted in HPI (units unknown) (unknown) (unknown) (no date) (unknown) (unknown) Referrals: (units unknown) (unknown) (unknown) (no date) (unknown) (unknown) Related Data (units unknown) (unknown) (unknown) (no date) (unknown) (unknown) Respiratory Rate 14 07/12/22 16:10 (units unknown) (unknown) (unknown) (no date) (unknown) (unknown) Respiratory Rate 14 (units unknown) (unknown) (unknown) (no date) (unknown) (unknown) Respiratory: normal effort, able to speak in complete sentences, without (units unknown) (unknown) (unknown) (no date) (unknown) (unknown) Review of Systems (units unknown) (unknown) (unknown) (no date) (unknown) (unknown) Reviewed vitals sign s and nursing notes. (units unknown) (unknown) (unknown) (no date) (unknown) (unknown) S/P myringotomy with insertion of tube (units unknown) (unknown) (unknown) (no date) (unknown) (unknown) SARS-CoV-2 (PCR) Negative (Negative) (units unknown) (unknown) (unknown) (no date) (unknown) (unknown) (spontaneous vaginal delivery) (-09/05/18) (units unknown) (unknown) (unknown) (no date) (unknown) (unknown) Salicylate Stat (units unknown) (unknown) (unknown) (no date) (unknown) (unknown) She was given a couple water, a diet order was ordered however they may not (units unknown) (unknown) (unknown) (no date) (unknown) (unknown) Signed By: (units unknown) (unknown) (unknown) (no date) (unknown) (unknown) Skin: brisk capillar y refill, without pallor or erythema (units unknown) (unknown) (unknown) (no date) (unknown) (unknown) Smoker (units unknown) (unknown) (unknown) (no date) (unknown) (unknown) Smoking Status: Former smoker (units unknown) (unknown) (unknown) (no date) (unknown) (unknown) Social History (units unknown) (unknown) (unknown) (no date) (unknown) (unknown) Social consideration s that may affect disposition: none (units unknown) (unknown) (unknown) (no date) (unknown) (unknown) Sodium Chloride (Normal Saline 0.9%) 1,000 mls @ 1,000 mls/hr IV BOLUS ONE (units unknown) (unknown) (unknown) (no date) (unknown) (unknown) Source: patient (units unknown) (unknown) (unknown) (no date) (unknown) (unknown) Stated Complaint: Stress/Depression (units unknown) (unknown) (unknown) (no date) (unknown) (unknown) Stop: 07/12/22 17:33 (units unknown) (unknown) (unknown) (no date) (unknown) (unknown) Stop: 07/12/22 17:45 (units unknown) (unknown) (unknown) (no date) (unknown) (unknown) Stop: 07/12/22 18:28 (units unknown) (unknown) (unknown) (no date) (unknown) (unknown) Stop: 07/12/22 18:31 (units unknown) (unknown) (unknown) (no date) (unknown) (unknown) Substance Use Type: does not use (units unknown) (unknown) (unknown) (no date) (unknown) (unknown) Surgical History (units unknown) (unknown) (unknown) (no date) (unknown) (unknown) Tactile disturbances ?> 1 = Very mild itching, pin and needles, burning, or (units unknown) (unknown) (unknown) (no date) (unknown) (unknown) Temperature 97.2 F L 07/12/22 16:10 (units unknown) (unknown) (unknown) (no date) (unknown) (unknown) Temperature 97.2 F L (units unknown) (unknown) (unknown) (no date) (unknown) (unknown) Thiamine HCl (Thiamine 100 Mg Tablet) 100 mg PO NOW ONE (units unknown) (unknown) (unknown) (no date) (unknown) (unknown) Thiamine HCl 200 mg/ Sodium (Chloride) 102 mls @ 408 mls/hr IV NOW ONE (units unknown) (unknown) (unknown) (no date) (unknown) (unknown) This is a 31-year-ol d female with history of alcohol abuse and appears to have (units unknown) (unknown) (unknown) (no date) (unknown) (unknown) Thyroid Stimulating Hormone Stat (units unknown) (unknown) (unknown) (no date) (unknown) (unknown) Time Seen by Provider: 07/12/22 17:05 (units unknown) (unknown) (unknown) (no date) (unknown) (unknown) Tremor ?> 1 = Not visible, but can be felt fingertip to fingertip (units unknown) (unknown) (unknown) (no date) (unknown) (unknown) U Benzodiazepines Scrn Negative (Negative) (units unknown) (unknown) (unknown) (no date) (unknown) (unknown) U Marijuana (THC) Screen Negative (Negative) (units unknown) (unknown) (unknown) (no date) (unknown) (unknown) U Methamphetamines Scrn Negative (Negative) (units unknown) (unknown) (unknown) (no date) (unknown) (unknown) U Opiates 300ng/mL cut Negative (Negative) (units unknown) (unknown) (unknown) (no date) (unknown) (unknown) U Tricyclic Antidepress Negative (Negative) (units unknown) (unknown) (unknown) (no date) (unknown) (unknown) Ur Amphetamines Screen Negative (Negative) (units unknown) (unknown) (unknown) (no date) (unknown) (unknown) Ur Barbiturates Screen Negative (Negative) (units unknown) (unknown) (unknown) (no date) (unknown) (unknown) Ur MDMA Scrn (Ecstasy) Negative (Negative) (units unknown) (unknown) (unknown) (no date) (unknown) (unknown) Ur Oxycodone Screen Negative (Negative) (units unknown) (unknown) (unknown) (no date) (unknown) (unknown) Ur Phencyclidine Scr n Negative (Negative) (units unknown) (unknown) (unknown) (no date) (unknown) (unknown) Urine Cocaine Screen Negative (Negative) (units unknown) (unknown) (unknown) (no date) (unknown) (unknown) Urine Dip (units unknown) (unknown) (unknown) (no date) (unknown) (unknown) Urine Drug Screen, Rapid Stat (units unknown) (unknown) (unknown) (no date) (unknown) (unknown) Urine Methadone Screen Negative (Negative) (units unknown) (unknown) (unknown) (no date) (unknown) (unknown) Urine Microscopic Stat (units unknown) (unknown) (unknown) (no date) (unknown) (unknown) Urine Specific [place] 1.015 (units unknown) (unknown) (unknown) (no date) (unknown) (unknown) Visual disturbances ?> 1 = Very mild sensitivity (units unknown) (unknown) (unknown) (no date) (unknown) (unknown) Vital Signs - 8 hr (units unknown) (unknown) (unknown) (no date) (unknown) (unknown) Vital Signs (units unknown) (unknown) (unknown) (no date) (unknown) (unknown) Vital signs: (units unknown) (unknown) (unknown) (no date) (unknown) (unknown) [METOCLOPRAMIDE] (units unknown) (unknown) (unknown) (no date) (unknown) (unknown) acetaminophen 325 mg tablet 325 mg PO Q6H PRN pain #20 tabs 02/05/20 (units unknown) (unknown) (unknown) (no date) (unknown) (unknown) acetaminophen [Tylenol] 325 mg tablet (units unknown) (unknown) (unknown) (no date) (unknown) (unknown) acute ischemic changes. (units unknown) (unknown) (unknown) (no date) (unknown) (unknown) alcohol in 300s, she was last here in the emergency department in May of (units unknown) (unknown) (unknown) (no date) (unknown) (unknown) alcohol intake frequency: 3 or more drinks per day (units unknown) (unknown) (unknown) (no date) (unknown) (unknown) alcohol intake: former (units unknown) (unknown) (unknown) (no date) (unknown) (unknown) and below (units unknown) (unknown) (unknown) (no date) (unknown) (unknown) and cooperative (units unknown) (unknown) (unknown) (no date) (unknown) (unknown) at extension and states that she feels symptoms of alcohol withdrawal. Denies (units unknown) (unknown) (unknown) (no date) (unknown) (unknown) current occupational exposures/hazards: Yes (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 with Pandemic ) (units unknown) (unknown) (unknown) (no date) (unknown) (unknown) deliver since it is after 17:00 and the diet order was ordered at 17:30. Samira (units unknown) (unknown) (unknown) (no date) (unknown) (unknown) detox as well. (units unknown) (unknown) (unknown) (no date) (unknown) (unknown) diarrhea or current stool changes. (units unknown) (unknown) (unknown) (no date) (unknown) (unknown) diphenhydramine HCl 25 mg capsule 25 mg PO BEDTIME PRN insomnia #20 02/05/20 (units unknown) (unknown) (unknown) (no date) (unknown) (unknown) diphenhydramine HCl [Benadryl] 25 mg capsule (units unknown) (unknown) (unknown) (no date) (unknown) (unknown) docusate sodium 100 mg capsule 100 mg PO BID #30 caps 02/05/20 (units unknown) (unknown) (unknown) (no date) (unknown) (unknown) docusate sodium [Colace] 100 mg capsule (units unknown) (unknown) (unknown) (no date) (unknown) (unknown) draw her labs (units unknown) (unknown) (unknown) (no date) (unknown) (unknown) education level: college 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[employer] (units unknown) (unknown) (unknown) (no date) (unknown) (unknown) fluid, EtOH, and CIWA, ordered 2 mg of IV lorazepam for patient's symptoms, s (units unknown) (unknown) (unknown) (no date) (unknown) (unknown) for alcohol related complaints through 2019, and she presented to the [facility] (units unknown) (unknown) (unknown) (no date) (unknown) (unknown) from social work is aware and pending her lab work to arrange for inpatient (units unknown) (unknown) (unknown) (no date) (unknown) (unknown) household members: spouse and children (units unknown) (unknown) (unknown) (no date) (unknown) (unknown) hydrocodone [HYDROCODONE] AdvReac Unknown VOMITING Verified 07/12/22 16:18 (units unknown) (unknown) (unknown) (no date) (unknown) (unknown) ibuprofen 600 mg Tablet (units unknown) (unknown) (unknown) (no date) (unknown) (unknown) ibuprofen 600 mg tablet 600 mg PO Q6HR PRN Pain, Mild 07/04/20 (units unknown) (unknown) (unknown) (no date) (unknown) (unknown) injuries, denies chance of , denies any other ingestions, is pleasant, (units unknown) (unknown) (unknown) (no date) (unknown) (unknown) intoxicated, pleasant, interactive and comfortable although active and fidgeting (units unknown) (unknown) (unknown) (no date) (unknown) (unknown) limited history currently due to intoxication. She states that she is recently (units unknown) (unknown) (unknown) (no date) (unknown) (unknown) marital status: (units unknown) (unknown) (unknown) (no date) (unknown) (unknown) metoclopramide Allergy Mild RASH/HIVES Verified 07/12/22 16:18 (units unknown) (unknown) (unknown) (no date) (unknown) (unknown) nausea vomiting or abdominal pain at this time. Denies any vomiting home or (units unknown) (unknown) (unknown) (no date) (unknown) (unknown) number of children: 1 (units unknown) (unknown) (unknown) (no date) (unknown) (unknown) numbness (units unknown) (unknown) (unknown) (no date) (unknown) (unknown) occupational status: employed (units unknown) (unknown) (unknown) (no date) (unknown) (unknown) ocial work and order s are pending (units unknown) (unknown) (unknown) (no date) (unknown) (unknown) ondansetron 4 mg disintegrating 4 mg PO Q6H PRN nausea and 06/12/22 (units unknown) (unknown) (unknown) (no date) (unknown) (unknown) ondansetron 4 mg disintegrating 4 mg PO Q8H PRN nausea and 01/01/20 (units unknown) (unknown) (unknown) (no date) (unknown) (unknown) ondansetron 4 mg disintegrating 4 mg PO Q8H PRN nausea and 02/05/20 (units unknown) (unknown) (unknown) (no date) (unknown) (unknown) ondansetron 4 mg tablet,disintegrating (units unknown) (unknown) (unknown) (no date) (unknown) (unknown) ordered p.o. Ativan for her symptoms and ask our into call lab to come up and (units unknown) (unknown) (unknown) (no date) (unknown) (unknown) prenat.vits,otis,min- i thang-folic 1 tab PO DAILY 12/30/19 07/03/20 (units unknown) (unknown) (unknown) (no date) (unknown) (unknown) prenat.vits,otis,min- i thang-folic Tablet (units unknown) (unknown) (unknown) (no date) (unknown) (unknown) relapsed due to a divorce with her . She used to be a frequent visitor (units unknown) (unknown) (unknown) (no date) (unknown) (unknown) second hand exposure : No (growing up as a child - not currently) (units unknown) (unknown) (unknown) (no date) (unknown) (unknown) seeking help with he r intoxication and wishes to go to detox. (units unknown) (unknown) (unknown) (no date) (unknown) (unknown) significant tremor o r tongue fasciculation, she has a mild tremor with her arms (units unknown) (unknown) (unknown) (no date) (unknown) (unknown) special renee needs: No (units unknown) (unknown) (unknown) (no date) (unknown) (unknown) substance abuse, alcohol intoxication, psychosis, mood disorder, depression (units unknown) (unknown) (unknown) (no date) (unknown) (unknown) substance use type: does not use (units unknown) (unknown) (unknown) (no date) (unknown) (unknown) tablet vomiting #14 tabs (units unknown) (unknown) (unknown) (no date) (unknown) (unknown) tablet vomiting #20 tabs (units unknown) (unknown) (unknown) (no date) (unknown) (unknown) tablet vomiting #30 tabs (units unknown) (unknown) (unknown) (no date) (unknown) (unknown) tenderness or exquisite tenderness with exam. (units unknown) (unknown) (unknown) (no date) (unknown) (unknown) that she drinks vodk a and admits to drinking heavily today, states that she took (units unknown) (unknown) (unknown) (no date) (unknown) (unknown) the bottle upside down and started checking from it. She denies any recent (units unknown) (unknown) (unknown) (no date) (unknown) (unknown) tramadol 50 mg table t 50 mg PO Q6H PRN pain #10 tabs 06/12/22 (units unknown) (unknown) (unknown) (no date) (unknown) (unknown) tramadol 50 mg tablet (units unknown) (unknown) (unknown) (no date) (unknown) (unknown) well as prior record s if available. (units unknown) (unknown) (unknown) (no date) (unknown) (unknown) wheezing, stridor, o r abnormal breath sounds. No retractions or tachypnea. (units unknown) (unknown) (unknown) (no date) (unknown) (unknown) with regular axis an d intervals. No STEMI, ST segment changes, arrhythmia, or (units unknown) (unknown) Result panel [id number] (unknown) (no date) (unknown) (unknown) 1-5 /HPF (units unknown) (unknown) (unknown) (no date) (unknown) (unknown) 1-5/HPF (units unknown) (unknown) (unknown) (no date) (unknown) (unknown) 1-5/HPF (units unknown) (unknown) (unknown) (no date) (unknown) (unknown) Many (>30) (units unknown) (unknown) (unknown) (no date) (unknown) (unknown) Specimen Cultured (units unknown) (unknown) Result panel [id number] (unknown) (no date) (unknown) (unknown) (no value) (units unknown) (unknown) (unknown) (no date) (unknown) (unknown) (1-3) #30 tabs (units unknown) (unknown) (unknown) (no date) (unknown) (unknown) (Benadryl) caps (units unknown) (unknown) (unknown) (no date) (unknown) (unknown) (Colace) (units unknown) (unknown) (unknown) (no date) (unknown) (unknown) (Tylenol) (units unknown) (unknown) (unknown) (no date) (unknown) (unknown) [id number] (units unknown) (unknown) (unknown) (no date) (unknown) (unknown) 07/12/22 07/12/22 07/12/22 Range/Units (units unknown) (unknown) (unknown) (no date) (unknown) (unknown) 07/12/22 16:28 (units unknown) (unknown) (unknown) (no date) (unknown) (unknown) 07/12/22 16:32 (units unknown) (unknown) (unknown) (no date) (unknown) (unknown) 07/12/22 18:28 (units unknown) (unknown) (unknown) (no date) (unknown) (unknown) 07/12/22 (units unknown) (unknown) (unknown) (no date) (unknown) (unknown) 1 tab PO DAILY (units unknown) (unknown) (unknown) (no date) (unknown) (unknown) 100 mg PO BID Qty: 3 0 0RF (units unknown) (unknown) (unknown) (no date) (unknown) (unknown) 16:10 07/12/22 (units unknown) (unknown) (unknown) (no date) (unknown) (unknown) 16:32 16:32 16:32 (units unknown) (unknown) (unknown) (no date) (unknown) (unknown) 1835 patient still does not have an IV, has not received any IV fluid her (units unknown) (unknown) (unknown) (no date) (unknown) (unknown) 18:53 (units unknown) (unknown) (unknown) (no date) (unknown) (unknown) 1899 still no IV, patient is p.o. challenging, she received her p.o. lorazepam, (units unknown) (unknown) (unknown) (no date) (unknown) (unknown) 2022 with similar symptoms. She comes in complaining of needing help, states (units unknown) (unknown) (unknown) (no date) (unknown) (unknown) 25 mg PO BEDTIME PRN (Reason: insomnia) Qty: 20 0RF (units unknown) (unknown) (unknown) (no date) (unknown) (unknown) 325 mg PO Q6H PRN (Reason: pain) Qty: 20 0RF (units unknown) (unknown) (unknown) (no date) (unknown) (unknown) 4 mg PO Q6H PRN (Reason: nausea and vomiting) Qty: 14 0RF (units unknown) (unknown) (unknown) (no date) (unknown) (unknown) 4 mg PO Q8H PRN (Reason: nausea and vomiting) Qty: 20 0RF (units unknown) (unknown) (unknown) (no date) (unknown) (unknown) 4 mg PO Q8H PRN (Reason: nausea and vomiting) Qty: 30 0RF (units unknown) (unknown) (unknown) (no date) (unknown) (unknown) 50 mg PO Q6H PRN (Reason: pain) Qty: 10 0RF (units unknown) (unknown) (unknown) (no date) (unknown) (unknown) 600 mg PO Q6HR PRN (Reason: Pain, Mild (1-3)) Qty: 30 0RF (units unknown) (unknown) (unknown) (no date) (unknown) (unknown) 9 points (units unknown) (unknown) (unknown) (no date) (unknown) (unknown) Acetaminophen Stat (units unknown) (unknown) (unknown) (no date) (unknown) (unknown) Age/Sex: 31 / F (units unknown) (unknown) (unknown) (no date) (unknown) (unknown) Agitation ?> 2 = (More severe symptoms) (units unknown) (unknown) (unknown) (no date) (unknown) (unknown) Alcoholism (units unknown) (unknown) (unknown) (no date) (unknown) (unknown) Allergies (units unknown) (unknown) (unknown) (no date) (unknown) (unknown) Allergy/AdvReac Type Severity Reaction Status Date / Time (units unknown) (unknown) (unknown) (no date) (unknown) (unknown) Anemia (-2018) (units unknown) (unknown) (unknown) (no date) (unknown) (unknown) Anxiety ?> 2 = (More severe symptoms) (units unknown) (unknown) (unknown) (no date) (unknown) (unknown) Auditory disturbance s ?> 1 = Very mild harshness or ability to frighten (units unknown) (unknown) (unknown) (no date) (unknown) (unknown) Bedside Urine Bilirubin - Negative (units unknown) (unknown) (unknown) (no date) (unknown) (unknown) Bedside Urine Glucos e Negative (units unknown) (unknown) (unknown) (no date) (unknown) (unknown) Bedside Urine Ketone - Negative (units unknown) (unknown) (unknown) (no date) (unknown) (unknown) Bedside Urine Leukocytes - Negative (units unknown) (unknown) (unknown) (no date) (unknown) (unknown) Bedside Urine Nitrit e + Positive (units unknown) (unknown) (unknown) (no date) (unknown) (unknown) Bedside Urine Occult Blood - Negative (units unknown) (unknown) (unknown) (no date) (unknown) (unknown) Bedside Urine Protei n - Negative (units unknown) (unknown) (unknown) (no date) (unknown) (unknown) Bedside Urine Urobilinogen - Negative (units unknown) (unknown) (unknown) (no date) (unknown) (unknown) Bedside Urine pH 6.0 (units unknown) (unknown) (unknown) (no date) (unknown) (unknown) Blood Pressure 112/6 2 07/12/22 16:10 (units unknown) (unknown) (unknown) (no date) (unknown) (unknown) Blood Pressure 112/62 (units unknown) (unknown) (unknown) (no date) (unknown) (unknown) Blood Pressure [Left Arm] 100/59 L (units unknown) (unknown) (unknown) (no date) (unknown) (unknown) CIWA is now worse an d she has tremors, anxiety is worsening and agitation, (units unknown) (unknown) (unknown) (no date) (unknown) (unknown) CIWA-Ar for Alcohol Withdrawal from [email or web address] on 07/12/2022 (units unknown) (unknown) (unknown) (no date) (unknown) (unknown) COVID19 -Nasal RAPID/Pre-Proc Stat (units unknown) (unknown) (unknown) (no date) (unknown) (unknown) Cardiovascular: regular rate and rhythm, no peripheral edema, warm extremities (units unknown) (unknown) (unknown) (no date) (unknown) (unknown) Cephalexin HCl (Cephalexin 250 Mg Capsule) 500 mg PO Q6H SANDY (units unknown) (unknown) (unknown) (no date) (unknown) (unknown) Chief Complaint: Alcohol intoxication, seeking detox (units unknown) (unknown) (unknown) (no date) (unknown) (unknown) Chief Complaint: Toxicology Problem (units unknown) (unknown) (unknown) (no date) (unknown) (unknown) Clinical decision rules or scores evaluated: CIWA of 9 at 1753 (units unknown) (unknown) (unknown) (no date) (unknown) (unknown) Complete Blood Count AUTO DIFF Stat (units unknown) (unknown) (unknown) (no date) (unknown) (unknown) Comprehensive Metabolic Panel Stat (units unknown) (unknown) (unknown) (no date) (unknown) (unknown) 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 (units unknown) (unknown) (unknown) (no date) (unknown) (unknown) Course of care: Patient is a difficult IV stick, ordered IV with lab work, (units unknown) (unknown) (unknown) (no date) (unknown) (unknown) Course (units unknown) (unknown) (unknown) (no date) (unknown) (unknown) : 1990 Acct:[id number] (units unknown) (unknown) (unknown) (no date) (unknown) (unknown) Date of Service: 07/12/22 (units unknown) (unknown) (unknown) (no date) (unknown) (unknown) Departure (units unknown) (unknown) (unknown) (no date) (unknown) (unknown) Differential diagnoses include but are not limited to: Alcohol withdrawal, (units unknown) (unknown) (unknown) (no date) (unknown) (unknown) Discharge Plan (units unknown) (unknown) (unknown) (no date) (unknown) (unknown) Discontinued Medications (units unknown) (unknown) (unknown) (no date) (unknown) (unknown) ECG Data (units unknown) (unknown) (unknown) (no date) (unknown) (unknown) ED Orders (units unknown) (unknown) (unknown) (no date) (unknown) (unknown) EKG independently reviewed by myself at [] reveals normal sinus rhythm at [] bpm (units unknown) (unknown) (unknown) (no date) (unknown) (unknown) EKG-12 Lead Stat (units unknown) (unknown) (unknown) (no date) (unknown) (unknown) ER Physician: Juliet Paz (units unknown) (unknown) (unknown) (no date) (unknown) (unknown) Emergency Report (units unknown) (unknown) (unknown) (no date) (unknown) (unknown) Esterase (units unknown) (unknown) (unknown) (no date) (unknown) (unknown) Ethanol (ETOH) Stat (units unknown) (unknown) (unknown) (no date) (unknown) (unknown) Exam Narrative: (units unknown) (unknown) (unknown) (no date) (unknown) (unknown) Exam (units unknown) (unknown) (unknown) (no date) (unknown) (unknown) Family History (units unknown) (unknown) (unknown) (no date) (unknown) (unknown) Family/Other Alcoholism (units unknown) (unknown) (unknown) (no date) (unknown) (unknown) Family/Other Diabete s mellitus (units unknown) (unknown) (unknown) (no date) (unknown) (unknown) Father Alcoholism (units unknown) (unknown) (unknown) (no date) (unknown) (unknown) Tonia Schneider MD [Primary Care Provider] (units unknown) (unknown) (unknown) (no date) (unknown) (unknown) Folic Acid (Folic Acid 1 Mg Tablet) 1 mg PO DAILY SANDY (units unknown) (unknown) (unknown) (no date) (unknown) (unknown) Free T4, Direct Thyroxine Stat (units unknown) (unknown) (unknown) (no date) (unknown) (unknown) GI: abdomen soft, nontender to palpation, nondistended, without masses, rebound (units unknown) (unknown) (unknown) (no date) (unknown) (unknown) General (units unknown) (unknown) (unknown) (no date) (unknown) (unknown) General: cooperative , comfortable, in no acute distress, well groomed, appears (units unknown) (unknown) (unknown) (no date) (unknown) (unknown) Grandfather Smoker (units unknown) (unknown) (unknown) (no date) (unknown) (unknown) Grandfather Unknown whether patient has any health problems (units unknown) (unknown) (unknown) (no date) (unknown) (unknown) Grandmother Diabetes mellitus (units unknown) (unknown) (unknown) (no date) (unknown) (unknown) Grandmother Hypoglycemia (units unknown) (unknown) (unknown) (no date) (unknown) (unknown) H/O dilation and curettage (-12/14/16) (units unknown) (unknown) (unknown) (no date) (unknown) (unknown) H/O wisdom tooth extraction () (units unknown) (unknown) (unknown) (no date) (unknown) (unknown) HEENT: symmetrical facial expressions, dry mucous membranes (units unknown) (unknown) (unknown) (no date) (unknown) (unknown) HPI - Alcohol (units unknown) (unknown) (unknown) (no date) (unknown) (unknown) HPI narrative: (units unknown) (unknown) (unknown) (no date) (unknown) (unknown) Headache/fullness in head ?> 1 = Very mild (units unknown) (unknown) (unknown) (no date) (unknown) (unknown) History of Present Illness (units unknown) (unknown) (unknown) (no date) (unknown) (unknown) Home Medications (units unknown) (unknown) (unknown) (no date) (unknown) (unknown) I have independently reviewed the patient's vital signs and nursing notes as (units unknown) (unknown) (unknown) (no date) (unknown) (unknown) INPUTS: (units unknown) (unknown) (unknown) (no date) (unknown) (unknown) Independent historian: Patient (units unknown) (unknown) (unknown) (no date) (unknown) (unknown) Initial Vital Signs (units unknown) (unknown) (unknown) (no date) (unknown) (unknown) Initial Vital Signs: (units unknown) (unknown) (unknown) (no date) (unknown) (unknown) Insomnia (units unknown) (unknown) (unknown) (no date) (unknown) (unknown) Interpretation: (units unknown) (unknown) (unknown) (no date) (unknown) (unknown) [facility] [address] [place] [address] (units unknown) (unknown) (unknown) (no date) (unknown) (unknown) Lab Data (units unknown) (unknown) (unknown) (no date) (unknown) (unknown) Lab Results (units unknown) (unknown) (unknown) (no date) (unknown) (unknown) Labs: (units unknown) (unknown) (unknown) (no date) (unknown) (unknown) Last Admin: 07/12/22 18:39 Dose: 4 mg (units unknown) (unknown) (unknown) (no date) (unknown) (unknown) Last Admin: 07/12/22 18:40 Dose: 1 mg (units unknown) (unknown) (unknown) (no date) (unknown) (unknown) Lorazepam (Lorazepam 0.5 Mg Tablet) 1 mg PO NOW ONE (units unknown) (unknown) (unknown) (no date) (unknown) (unknown) Lorazepam (Lorazepam 2 Mg/Ml Inj) 2 mg IV NOW ONE (units unknown) (unknown) (unknown) (no date) (unknown) (unknown) MDM - Alcohol (units unknown) (unknown) (unknown) (no date) (unknown) (unknown) MDM Narrative (units unknown) (unknown) (unknown) (no date) (unknown) (unknown) MIPS: This encounter doesn't have any diagnosis' associated with MIPS criteria. (units unknown) (unknown) (unknown) (no date) (unknown) (unknown) MSK: moves all extremities, neurovascularly intact, no weakness, normal tone no (units unknown) (unknown) (unknown) (no date) (unknown) (unknown) Medical History (units unknown) (unknown) (unknown) (no date) (unknown) (unknown) Medical decision making narrative: (units unknown) (unknown) (unknown) (no date) (unknown) (unknown) Medication Instructions Recorded Confirmed (units unknown) (unknown) (unknown) (no date) (unknown) (unknown) Medication Instructions Recorded (units unknown) (unknown) (unknown) (no date) (unknown) (unknown) Menometrorrhagia (units unknown) (unknown) (unknown) (no date) (unknown) (unknown) Mode of arrival: Ambulatory (units unknown) (unknown) (unknown) (no date) (unknown) (unknown) Mother Diabetes mellitus (units unknown) (unknown) (unknown) (no date) (unknown) (unknown) Narrative (units unknown) (unknown) (unknown) (no date) (unknown) (unknown) Nausea/vomiting ?> 0 = No nausea and no vomiting (units unknown) (unknown) (unknown) (no date) (unknown) (unknown) Neuro: normal speech and cognition, A+O x3, ambulatory, clear speech (units unknown) (unknown) (unknown) (no date) (unknown) (unknown) No Action (units unknown) (unknown) (unknown) (no date) (unknown) (unknown) Obesity (units unknown) (unknown) (unknown) (no date) (unknown) (unknown) Ondansetron HCl (Ondansetron 4 Mg Odt) 4 mg SL NOW ONE (units unknown) (unknown) (unknown) (no date) (unknown) (unknown) Ondansetron HCl (Ondansetron 4 Mg/2 Ml Inj) 4 mg IV Q6HR PRN (units unknown) (unknown) (unknown) (no date) (unknown) (unknown) Ordered: (units unknown) (unknown) (unknown) (no date) (unknown) (unknown) Orders (units unknown) (unknown) (unknown) (no date) (unknown) (unknown) Orientation/clouding of sensorium ?> 0 = Oriented, can do serial additions (units unknown) (unknown) (unknown) (no date) (unknown) (unknown) Overweight (units unknown) (unknown) (unknown) (no date) (unknown) (unknown) Oxygen Delivery Method Room Air 07/12/22 16:10 (units unknown) (unknown) (unknown) (no date) (unknown) (unknown) Oxygen Delivery Method Room Air Room Air (units unknown) (unknown) (unknown) (no date) (unknown) (unknown) PRN Reason: Nausea And Vomiting (units unknown) (unknown) (unknown) (no date) (unknown) (unknown) Paroxysmal sweats ?> 0 = No sweat visible (units unknown) (unknown) (unknown) (no date) (unknown) (unknown) Patient History (units unknown) (unknown) (unknown) (no date) (unknown) (unknown) Patient is appropriate for outpatient management. (units unknown) (unknown) (unknown) (no date) (unknown) (unknown) Patient: Sarah Connors MR#: [id number] (units unknown) (unknown) (unknown) (no date) (unknown) (unknown) Patients with scores >= may require medication for withdrawal. (units unknown) (unknown) (unknown) (no date) (unknown) (unknown) Pertinent lab findings reviewed: (units unknown) (unknown) (unknown) (no date) (unknown) (unknown) Point of Care Testing (units unknown) (unknown) (unknown) (no date) (unknown) (unknown) Test Results Negative (units unknown) (unknown) (unknown) (no date) (unknown) (unknown) Prescriptions: (units unknown) (unknown) (unknown) (no date) (unknown) (unknown) Previous Rx's (units unknown) (unknown) (unknown) (no date) (unknown) (unknown) Psych: mental status is grossly normal, congruent mood, normal affect, pleasant (units unknown) (unknown) (unknown) (no date) (unknown) (unknown) Pulse Oximetry 99 07/12/22 16:10 (units unknown) (unknown) (unknown) (no date) (unknown) (unknown) Pulse Oximetry 99 99 (units unknown) (unknown) (unknown) (no date) (unknown) (unknown) Pulse Rate 82 07/12/22 16:10 (units unknown) (unknown) (unknown) (no date) (unknown) (unknown) Pulse Rate 82 86 (units unknown) (unknown) (unknown) (no date) (unknown) (unknown) Questions are addressed and there is agreement with the plan and for follow-up. (units unknown) (unknown) (unknown) (no date) (unknown) (unknown) RESULT SUMMARY: (units unknown) (unknown) (unknown) (no date) (unknown) (unknown) ROS Unobtainable: Al l systems reviewed + are unremarkable except as noted in HPI (units unknown) (unknown) (unknown) (no date) (unknown) (unknown) Referrals: (units unknown) (unknown) (unknown) (no date) (unknown) (unknown) Related Data (units unknown) (unknown) (unknown) (no date) (unknown) (unknown) Respiratory Rate 14 07/12/22 16:10 (units unknown) (unknown) (unknown) (no date) (unknown) (unknown) Respiratory Rate 14 22 (units unknown) (unknown) (unknown) (no date) (unknown) (unknown) Respiratory: normal effort, able to speak in complete sentences, without (units unknown) (unknown) (unknown) (no date) (unknown) (unknown) Review of Systems (units unknown) (unknown) (unknown) (no date) (unknown) (unknown) Reviewed vitals sign s and nursing notes. (units unknown) (unknown) (unknown) (no date) (unknown) (unknown) S/P myringotomy with insertion of tube (units unknown) (unknown) (unknown) (no date) (unknown) (unknown) SARS-CoV-2 (PCR) Negative (Negative) (units unknown) (unknown) (unknown) (no date) (unknown) (unknown) (spontaneous vaginal delivery) (-09/05/18) (units unknown) (unknown) (unknown) (no date) (unknown) (unknown) Salicylate Stat (units unknown) (unknown) (unknown) (no date) (unknown) (unknown) She was given a couple water, a diet order was ordered however they may not (units unknown) (unknown) (unknown) (no date) (unknown) (unknown) Signed By: (units unknown) (unknown) (unknown) (no date) (unknown) (unknown) Skin: brisk capillar y refill, without pallor or erythema (units unknown) (unknown) (unknown) (no date) (unknown) (unknown) Smoker (units unknown) (unknown) (unknown) (no date) (unknown) (unknown) Smoking Status: Former smoker (units unknown) (unknown) (unknown) (no date) (unknown) (unknown) Social History (units unknown) (unknown) (unknown) (no date) (unknown) (unknown) Social consideration s that may affect disposition: none (units unknown) (unknown) (unknown) (no date) (unknown) (unknown) Sodium Chloride (Normal Saline 0.9%) 1,000 mls @ 1,000 mls/hr IV BOLUS ONE (units unknown) (unknown) (unknown) (no date) (unknown) (unknown) Source: patient (units unknown) (unknown) (unknown) (no date) (unknown) (unknown) Stated Complaint: Stress/Depression (units unknown) (unknown) (unknown) (no date) (unknown) (unknown) Stop: 07/12/22 17:33 (units unknown) (unknown) (unknown) (no date) (unknown) (unknown) Stop: 07/12/22 17:45 (units unknown) (unknown) (unknown) (no date) (unknown) (unknown) Stop: 07/12/22 18:28 (units unknown) (unknown) (unknown) (no date) (unknown) (unknown) Stop: 07/12/22 18:31 (units unknown) (unknown) (unknown) (no date) (unknown) (unknown) Substance Use Type: does not use (units unknown) (unknown) (unknown) (no date) (unknown) (unknown) Surgical History (units unknown) (unknown) (unknown) (no date) (unknown) (unknown) Tactile disturbances ?> 1 = Very mild itching, pin and needles, burning, or (units unknown) (unknown) (unknown) (no date) (unknown) (unknown) Temperature 97.2 F L 07/12/22 16:10 (units unknown) (unknown) (unknown) (no date) (unknown) (unknown) Temperature 97.2 F L (units unknown) (unknown) (unknown) (no date) (unknown) (unknown) Thiamine HCl (Thiamine 100 Mg Tablet) 100 mg PO NOW ONE (units unknown) (unknown) (unknown) (no date) (unknown) (unknown) Thiamine HCl 200 mg/ Sodium (Chloride) 102 mls @ 408 mls/hr IV NOW ONE (units unknown) (unknown) (unknown) (no date) (unknown) (unknown) This is a 31-year-ol d female with history of alcohol abuse and appears to have (units unknown) (unknown) (unknown) (no date) (unknown) (unknown) Thyroid Stimulating Hormone Stat (units unknown) (unknown) (unknown) (no date) (unknown) (unknown) Time Seen by Provider: 07/12/22 17:05 (units unknown) (unknown) (unknown) (no date) (unknown) (unknown) Tremor ?> 1 = Not visible, but can be felt fingertip to fingertip (units unknown) (unknown) (unknown) (no date) (unknown) (unknown) U Benzodiazepines Scrn Negative (Negative) (units unknown) (unknown) (unknown) (no date) (unknown) (unknown) U Marijuana (THC) Screen Negative (Negative) (units unknown) (unknown) (unknown) (no date) (unknown) (unknown) U Methamphetamines Scrn Negative (Negative) (units unknown) (unknown) (unknown) (no date) (unknown) (unknown) U Opiates 300ng/mL cut Negative (Negative) (units unknown) (unknown) (unknown) (no date) (unknown) (unknown) U Tricyclic Antidepress Negative (Negative) (units unknown) (unknown) (unknown) (no date) (unknown) (unknown) Ur Amphetamines Screen Negative (Negative) (units unknown) (unknown) (unknown) (no date) (unknown) (unknown) Ur Barbiturates Screen Negative (Negative) (units unknown) (unknown) (unknown) (no date) (unknown) (unknown) Ur Culture Indicated ? Specimen cultured (units unknown) (unknown) (unknown) (no date) (unknown) (unknown) Ur MDMA Scrn (Ecstasy) Negative (Negative) (units unknown) (unknown) (unknown) (no date) (unknown) (unknown) Ur Oxycodone Screen Negative (Negative) (units unknown) (unknown) (unknown) (no date) (unknown) (unknown) Ur Phencyclidine Scr n Negative (Negative) (units unknown) (unknown) (unknown) (no date) (unknown) (unknown) Ur Squamous Epith Cells 1-5 /hpf (0-5/HPF) (units unknown) (unknown) (unknown) (no date) (unknown) (unknown) Urine Bacteria Many (>30) H (None) (units unknown) (unknown) (unknown) (no date) (unknown) (unknown) Urine Cocaine Screen Negative (Negative) (units unknown) (unknown) (unknown) (no date) (unknown) (unknown) Urine Culture Stat (units unknown) (unknown) (unknown) (no date) (unknown) (unknown) Urine Dip (units unknown) (unknown) (unknown) (no date) (unknown) (unknown) Urine Drug Screen, Rapid Stat (units unknown) (unknown) (unknown) (no date) (unknown) (unknown) Urine Methadone Screen Negative (Negative) (units unknown) (unknown) (unknown) (no date) (unknown) (unknown) Urine Microscopic Stat (units unknown) (unknown) (unknown) (no date) (unknown) (unknown) Urine RBC 1-5/hpf (0-5/HPF) (units unknown) (unknown) (unknown) (no date) (unknown) (unknown) Urine Specific [place] 1.015 (units unknown) (unknown) (unknown) (no date) (unknown) (unknown) Urine WBC 1-5/hpf (0-5/HPF) (units unknown) (unknown) (unknown) (no date) (unknown) (unknown) Visual disturbances ?> 1 = Very mild sensitivity (units unknown) (unknown) (unknown) (no date) (unknown) (unknown) Vital Signs - 8 hr (units unknown) (unknown) (unknown) (no date) (unknown) (unknown) Vital Signs (units unknown) (unknown) (unknown) (no date) (unknown) (unknown) Vital signs: (units unknown) (unknown) (unknown) (no date) (unknown) (unknown) [METOCLOPRAMIDE] (units unknown) (unknown) (unknown) (no date) (unknown) (unknown) acetaminophen 325 mg tablet 325 mg PO Q6H PRN pain #20 tabs 02/05/20 (units unknown) (unknown) (unknown) (no date) (unknown) (unknown) acetaminophen [Tylenol] 325 mg tablet (units unknown) (unknown) (unknown) (no date) (unknown) (unknown) acute ischemic changes. (units unknown) (unknown) (unknown) (no date) (unknown) (unknown) alcohol in 300s, she was last here in the emergency department in May of (units unknown) (unknown) (unknown) (no date) (unknown) (unknown) alcohol intake frequency: 3 or more drinks per day (units unknown) (unknown) (unknown) (no date) (unknown) (unknown) alcohol intake: former (units unknown) (unknown) (unknown) (no date) (unknown) (unknown) and below (units unknown) (unknown) (unknown) (no date) (unknown) (unknown) and cooperative (units unknown) (unknown) (unknown) (no date) (unknown) (unknown) at extension and states that she feels symptoms of alcohol withdrawal. Denies (units unknown) (unknown) (unknown) (no date) (unknown) (unknown) current occupational exposures/hazards: Yes (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 with Pandemic ) (units unknown) (unknown) (unknown) (no date) (unknown) (unknown) cystitis, she is p.o . tolerant, still pending lab work (units unknown) (unknown) (unknown) (no date) (unknown) (unknown) deliver since it is after 17:00 and the diet order was ordered at 17:30. Samira (units unknown) (unknown) (unknown) (no date) (unknown) (unknown) detox as well. (units unknown) (unknown) (unknown) (no date) (unknown) (unknown) diarrhea or current stool changes. (units unknown) (unknown) (unknown) (no date) (unknown) (unknown) diphenhydramine HCl 25 mg capsule 25 mg PO BEDTIME PRN insomnia #20 02/05/20 (units unknown) (unknown) (unknown) (no date) (unknown) (unknown) diphenhydramine HCl [Benadryl] 25 mg capsule (units unknown) (unknown) (unknown) (no date) (unknown) (unknown) docusate sodium 100 mg capsule 100 mg PO BID #30 caps 02/05/20 (units unknown) (unknown) (unknown) (no date) (unknown) (unknown) docusate sodium [Colace] 100 mg capsule (units unknown) (unknown) (unknown) (no date) (unknown) (unknown) draw her labs (units unknown) (unknown) (unknown) (no date) (unknown) (unknown) education level: college 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[employer] (units unknown) (unknown) (unknown) (no date) (unknown) (unknown) fluid, EtOH, and CIWA, ordered 2 mg of IV lorazepam for patient's symptoms, (units unknown) (unknown) (unknown) (no date) (unknown) (unknown) for alcohol related complaints through 2019, and she presented to the [facility] (units unknown) (unknown) (unknown) (no date) (unknown) (unknown) from social work is aware and pending her lab work to arrange for inpatient (units unknown) (unknown) (unknown) (no date) (unknown) (unknown) her urine microscopy came back positive for many bacteria, will treat for acute (units unknown) (unknown) (unknown) (no date) (unknown) (unknown) household members: spouse and children (units unknown) (unknown) (unknown) (no date) (unknown) (unknown) hydrocodone [HYDROCODONE] AdvReac Unknown VOMITING Verified 07/12/22 16:18 (units unknown) (unknown) (unknown) (no date) (unknown) (unknown) ibuprofen 600 mg Tablet (units unknown) (unknown) (unknown) (no date) (unknown) (unknown) ibuprofen 600 mg tablet 600 mg PO Q6HR PRN Pain, Mild 07/04/20 (units unknown) (unknown) (unknown) (no date) (unknown) (unknown) injuries, denies chance of , denies any other ingestions, is pleasant, (units unknown) (unknown) (unknown) (no date) (unknown) (unknown) intoxicated, pleasant, interactive and comfortable although active and fidgeting (units unknown) (unknown) (unknown) (no date) (unknown) (unknown) limited history currently due to intoxication. She states that she is recently (units unknown) (unknown) (unknown) (no date) (unknown) (unknown) marital status: (units unknown) (unknown) (unknown) (no date) (unknown) (unknown) metoclopramide Allergy Mild RASH/HIVES Verified 07/12/22 16:18 (units unknown) (unknown) (unknown) (no date) (unknown) (unknown) nausea vomiting or abdominal pain at this time. Denies any vomiting home or (units unknown) (unknown) (unknown) (no date) (unknown) (unknown) number of children: 1 (units unknown) (unknown) (unknown) (no date) (unknown) (unknown) numbness (units unknown) (unknown) (unknown) (no date) (unknown) (unknown) occupational status: employed (units unknown) (unknown) (unknown) (no date) (unknown) (unknown) ondansetron 4 mg disintegrating 4 mg PO Q6H PRN nausea and 06/12/22 (units unknown) (unknown) (unknown) (no date) (unknown) (unknown) ondansetron 4 mg disintegrating 4 mg PO Q8H PRN nausea and 01/01/20 (units unknown) (unknown) (unknown) (no date) (unknown) (unknown) ondansetron 4 mg disintegrating 4 mg PO Q8H PRN nausea and 02/05/20 (units unknown) (unknown) (unknown) (no date) (unknown) (unknown) ondansetron 4 mg tablet,disintegrating (units unknown) (unknown) (unknown) (no date) (unknown) (unknown) ordered p.o. Ativan for her symptoms and ask our into call lab to come up and (units unknown) (unknown) (unknown) (no date) (unknown) (unknown) prenat.vits,otis,min- i thang-folic 1 tab PO DAILY 12/30/19 07/03/20 (units unknown) (unknown) (unknown) (no date) (unknown) (unknown) prenat.vits,otis,min- i thang-folic Tablet (units unknown) (unknown) (unknown) (no date) (unknown) (unknown) relapsed due to a divorce with her . She used to be a frequent visitor (units unknown) (unknown) (unknown) (no date) (unknown) (unknown) second hand exposure : No (growing up as a child - not currently) (units unknown) (unknown) (unknown) (no date) (unknown) (unknown) seeking help with he r intoxication and wishes to go to detox. (units unknown) (unknown) (unknown) (no date) (unknown) (unknown) significant tremor o r tongue fasciculation, she has a mild tremor with her arms (units unknown) (unknown) (unknown) (no date) (unknown) (unknown) social work and orders are pending (units unknown) (unknown) (unknown) (no date) (unknown) (unknown) special renee needs: No (units unknown) (unknown) (unknown) (no date) (unknown) (unknown) substance abuse, alcohol intoxication, psychosis, mood disorder, depression (units unknown) (unknown) (unknown) (no date) (unknown) (unknown) substance use type: does not use (units unknown) (unknown) (unknown) (no date) (unknown) (unknown) tablet vomiting #14 tabs (units unknown) (unknown) (unknown) (no date) (unknown) (unknown) tablet vomiting #20 tabs (units unknown) (unknown) (unknown) (no date) (unknown) (unknown) tablet vomiting #30 tabs (units unknown) (unknown) (unknown) (no date) (unknown) (unknown) tenderness or exquisite tenderness with exam. (units unknown) (unknown) (unknown) (no date) (unknown) (unknown) that she drinks vodk a and admits to drinking heavily today, states that she took (units unknown) (unknown) (unknown) (no date) (unknown) (unknown) the bottle upside down and started checking from it. She denies any recent (units unknown) (unknown) (unknown) (no date) (unknown) (unknown) tramadol 50 mg table t 50 mg PO Q6H PRN pain #10 tabs 06/12/22 (units unknown) (unknown) (unknown) (no date) (unknown) (unknown) tramadol 50 mg tablet (units unknown) (unknown) (unknown) (no date) (unknown) (unknown) well as prior record s if available. (units unknown) (unknown) (unknown) (no date) (unknown) (unknown) wheezing, stridor, o r abnormal breath sounds. No retractions or tachypnea. (units unknown) (unknown) (unknown) (no date) (unknown) (unknown) with regular axis an d intervals. No STEMI, ST segment changes, arrhythmia, or (units unknown) (unknown) Result panel [id number] (unknown) (no date) (unknown) (unknown) 0 /ul (unknown) (unknown) (no date) (unknown) (unknown) 0 /ul (unknown) (unknown) (no date) (unknown) (unknown) 0.3 % (unknown) (unknown) (no date) (unknown) (unknown) 0.9 % (unknown) (unknown) (no date) (unknown) (unknown) 100 /ul (unknown) (unknown) (no date) (unknown) (unknown) 11.5 g/dl (unknown) (unknown) (no date) (unknown) (unknown) 1500 /ul (unknown) (unknown) (no date) (unknown) (unknown) 17.3 % (unknown) (unknown) (no date) (unknown) (unknown) 1700 /ul (unknown) (unknown) (no date) (unknown) (unknown) 2.7 % (unknown) (unknown) (no date) (unknown) (unknown) 226 x10 3/ul (unknown) (unknown) (no date) (unknown) (unknown) 26.0 pg (unknown) (unknown) (no date) (unknown) (unknown) 3.3 x10 3/ul (unknown) (unknown) (no date) (unknown) (unknown) 32.7 % (unknown) (unknown) (no date) (unknown) (unknown) 35.3 % (unknown) (unknown) (no date) (unknown) (unknown) 4.44 x10 6/ul (unknown) (unknown) (no date) (unknown) (unknown) 45.5 % (unknown) (unknown) (no date) (unknown) (unknown) 50.6 % (unknown) (unknown) (no date) (unknown) (unknown) 79.5 fl (unknown) Result panel 2174 (unknown) (no date) (unknown) (unknown) (no value) (units unknown) (unknown) (unknown) (no date) (unknown) (unknown) (1-3) #30 tabs (units unknown) (unknown) (unknown) (no date) (unknown) (unknown) (Benadryl) caps (units unknown) (unknown) (unknown) (no date) (unknown) (unknown) (Colace) (units unknown) (unknown) (unknown) (no date) (unknown) (unknown) (Tylenol) (units unknown) (unknown) (unknown) (no date) (unknown) (unknown) [id number] (units unknown) (unknown) (unknown) (no date) (unknown) (unknown) 07/12/22 07/12/22 07/12/22 Range/Units (units unknown) (unknown) (unknown) (no date) (unknown) (unknown) 07/12/22 16:28 (units unknown) (unknown) (unknown) (no date) (unknown) (unknown) 07/12/22 16:32 (units unknown) (unknown) (unknown) (no date) (unknown) (unknown) 07/12/22 18:28 (units unknown) (unknown) (unknown) (no date) (unknown) (unknown) 07/12/22 19:15 (units unknown) (unknown) (unknown) (no date) (unknown) (unknown) 07/12/22 Range/Units (units unknown) (unknown) (unknown) (no date) (unknown) (unknown) 07/12/22 (units unknown) (unknown) (unknown) (no date) (unknown) (unknown) 1 tab PO DAILY (units unknown) (unknown) (unknown) (no date) (unknown) (unknown) 100 mg PO BID Qty: 3 0 0RF (units unknown) (unknown) (unknown) (no date) (unknown) (unknown) 16:10 07/12/22 (units unknown) (unknown) (unknown) (no date) (unknown) (unknown) 16:32 16:32 16:32 (units unknown) (unknown) (unknown) (no date) (unknown) (unknown) 1835 patient still does not have an IV, has not received any IV fluid her (units unknown) (unknown) (unknown) (no date) (unknown) (unknown) 18:53 (units unknown) (unknown) (unknown) (no date) (unknown) (unknown) 1899 still no IV, patient is p.o. challenging, she received her p.o. lorazepam, (units unknown) (unknown) (unknown) (no date) (unknown) (unknown) 1929, patient now feels depressed, she is lying in bed, feeling bad, has (units unknown) (unknown) (unknown) (no date) (unknown) (unknown) 19:15 (units unknown) (unknown) (unknown) (no date) (unknown) (unknown) 2022 with similar symptoms. She comes in complaining of needing help, states (units unknown) (unknown) (unknown) (no date) (unknown) (unknown) 25 mg PO BEDTIME PRN (Reason: insomnia) Qty: 20 0RF (units unknown) (unknown) (unknown) (no date) (unknown) (unknown) 325 mg PO Q6H PRN (Reason: pain) Qty: 20 0RF (units unknown) (unknown) (unknown) (no date) (unknown) (unknown) 4 mg PO Q6H PRN (Reason: nausea and vomiting) Qty: 14 0RF (units unknown) (unknown) (unknown) (no date) (unknown) (unknown) 4 mg PO Q8H PRN (Reason: nausea and vomiting) Qty: 20 0RF (units unknown) (unknown) (unknown) (no date) (unknown) (unknown) 4 mg PO Q8H PRN (Reason: nausea and vomiting) Qty: 30 0RF (units unknown) (unknown) (unknown) (no date) (unknown) (unknown) 50 mg PO Q6H PRN (Reason: pain) Qty: 10 0RF (units unknown) (unknown) (unknown) (no date) (unknown) (unknown) 600 mg PO Q6HR PRN (Reason: Pain, Mild (1-3)) Qty: 30 0RF (units unknown) (unknown) (unknown) (no date) (unknown) (unknown) 9 points (units unknown) (unknown) (unknown) (no date) (unknown) (unknown) Acetaminophen Stat (units unknown) (unknown) (unknown) (no date) (unknown) (unknown) Age/Sex: 31 / F (units unknown) (unknown) (unknown) (no date) (unknown) (unknown) Agitation ?> 2 = (More severe symptoms) (units unknown) (unknown) (unknown) (no date) (unknown) (unknown) Alcohol use disorder (units unknown) (unknown) (unknown) (no date) (unknown) (unknown) Alcoholism (units unknown) (unknown) (unknown) (no date) (unknown) (unknown) Allergies (units unknown) (unknown) (unknown) (no date) (unknown) (unknown) Allergy/AdvReac Type Severity Reaction Status Date / Time (units unknown) (unknown) (unknown) (no date) (unknown) (unknown) Anemia (-2018) (units unknown) (unknown) (unknown) (no date) (unknown) (unknown) Anxiety ?> 2 = (More severe symptoms) (units unknown) (unknown) (unknown) (no date) (unknown) (unknown) Auditory disturbance s ?> 1 = Very mild harshness or ability to frighten (units unknown) (unknown) (unknown) (no date) (unknown) (unknown) Baso # (Auto) (0-100 ) /uL (units unknown) (unknown) (unknown) (no date) (unknown) (unknown) Baso # (Auto) 0 (0-100) /uL (units unknown) (unknown) (unknown) (no date) (unknown) (unknown) Baso % (Auto) (0-2) % (units unknown) (unknown) (unknown) (no date) (unknown) (unknown) Baso % (Auto) 0.9 (0-2) % (units unknown) (unknown) (unknown) (no date) (unknown) (unknown) Bedside Urine Bilirubin - Negative (units unknown) (unknown) (unknown) (no date) (unknown) (unknown) Bedside Urine Glucos e Negative (units unknown) (unknown) (unknown) (no date) (unknown) (unknown) Bedside Urine Ketone - Negative (units unknown) (unknown) (unknown) (no date) (unknown) (unknown) Bedside Urine Leukocytes - Negative (units unknown) (unknown) (unknown) (no date) (unknown) (unknown) Bedside Urine Nitrit e + Positive (units unknown) (unknown) (unknown) (no date) (unknown) (unknown) Bedside Urine Occult Blood - Negative (units unknown) (unknown) (unknown) (no date) (unknown) (unknown) Bedside Urine Protei n - Negative (units unknown) (unknown) (unknown) (no date) (unknown) (unknown) Bedside Urine Urobilinogen - Negative (units unknown) (unknown) (unknown) (no date) (unknown) (unknown) Bedside Urine pH 6.0 (units unknown) (unknown) (unknown) (no date) (unknown) (unknown) Blood Pressure 112/6 2 07/12/22 16:10 (units unknown) (unknown) (unknown) (no date) (unknown) (unknown) Blood Pressure 112/62 (units unknown) (unknown) (unknown) (no date) (unknown) (unknown) Blood Pressure [Left Arm] 100/59 L (units unknown) (unknown) (unknown) (no date) (unknown) (unknown) CIWA is now worse an d she has tremors, anxiety is worsening and agitation, (units unknown) (unknown) (unknown) (no date) (unknown) (unknown) CIWA-Ar for Alcohol Withdrawal from [email or web address] on 07/12/2022 (units unknown) (unknown) (unknown) (no date) (unknown) (unknown) COVID19 -Nasal RAPID/Pre-Proc Stat (units unknown) (unknown) (unknown) (no date) (unknown) (unknown) Cardiovascular: regular rate and rhythm, no peripheral edema, warm extremities (units unknown) (unknown) (unknown) (no date) (unknown) (unknown) Cephalexin HCl (Cephalexin 250 Mg Capsule) 500 mg PO Q6H SANDY (units unknown) (unknown) (unknown) (no date) (unknown) (unknown) Chief Complaint: Alcohol intoxication, seeking detox (units unknown) (unknown) (unknown) (no date) (unknown) (unknown) Chief Complaint: Toxicology Problem (units unknown) (unknown) (unknown) (no date) (unknown) (unknown) Clinical Impression: (units unknown) (unknown) (unknown) (no date) (unknown) (unknown) Clinical decision rules or scores evaluated: CIWA of 9 at 1753 (units unknown) (unknown) (unknown) (no date) (unknown) (unknown) Complete Blood Count AUTO DIFF Stat (units unknown) (unknown) (unknown) (no date) (unknown) (unknown) Comprehensive Metabolic Panel Stat (units unknown) (unknown) (unknown) (no date) (unknown) (unknown) 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 (units unknown) (unknown) (unknown) (no date) (unknown) (unknown) Course of care: Patient is a difficult IV stick, ordered IV with lab work, (units unknown) (unknown) (unknown) (no date) (unknown) (unknown) Course (units unknown) (unknown) (unknown) (no date) (unknown) (unknown) : 1990 Acct:[id number] (units unknown) (unknown) (unknown) (no date) (unknown) (unknown) Date of Service: 07/12/22 (units unknown) (unknown) (unknown) (no date) (unknown) (unknown) Departure (units unknown) (unknown) (unknown) (no date) (unknown) (unknown) Differential diagnoses include but are not limited to: Alcohol withdrawal, (units unknown) (unknown) (unknown) (no date) (unknown) (unknown) Discharge Plan (units unknown) (unknown) (unknown) (no date) (unknown) (unknown) Discontinued Medications (units unknown) (unknown) (unknown) (no date) (unknown) (unknown) ECG Data (units unknown) (unknown) (unknown) (no date) (unknown) (unknown) ED Orders (units unknown) (unknown) (unknown) (no date) (unknown) (unknown) EKG independently reviewed by myself at [] reveals normal sinus rhythm at [] bpm (units unknown) (unknown) (unknown) (no date) (unknown) (unknown) EKG-12 Lead Stat (units unknown) (unknown) (unknown) (no date) (unknown) (unknown) ER Physician: Juliet Paz (units unknown) (unknown) (unknown) (no date) (unknown) (unknown) Emergency Report (units unknown) (unknown) (unknown) (no date) (unknown) (unknown) Eos # (Auto) (0-450) /uL (units unknown) (unknown) (unknown) (no date) (unknown) (unknown) Eos # (Auto) 0 (0-450) /uL (units unknown) (unknown) (unknown) (no date) (unknown) (unknown) Eos % (Auto) (2-4) % (units unknown) (unknown) (unknown) (no date) (unknown) (unknown) Eos % (Auto) 0.3 L (2-4) % (units unknown) (unknown) (unknown) (no date) (unknown) (unknown) Esterase (units unknown) (unknown) (unknown) (no date) (unknown) (unknown) Ethanol (ETOH) Stat (units unknown) (unknown) (unknown) (no date) (unknown) (unknown) Exam Narrative: (units unknown) (unknown) (unknown) (no date) (unknown) (unknown) Exam (units unknown) (unknown) (unknown) (no date) (unknown) (unknown) Family History (units unknown) (unknown) (unknown) (no date) (unknown) (unknown) Family/Other Alcoholism (units unknown) (unknown) (unknown) (no date) (unknown) (unknown) Family/Other Diabete s mellitus (units unknown) (unknown) (unknown) (no date) (unknown) (unknown) Father Alcoholism (units unknown) (unknown) (unknown) (no date) (unknown) (unknown) Tonia Schneider MD [Primary Care Provider] (units unknown) (unknown) (unknown) (no date) (unknown) (unknown) Folic Acid (Folic Acid 1 Mg Tablet) 1 mg PO DAILY SANDY (units unknown) (unknown) (unknown) (no date) (unknown) (unknown) Free T4, Direct Thyroxine Stat (units unknown) (unknown) (unknown) (no date) (unknown) (unknown) GI: abdomen soft, nontender to palpation, nondistended, without masses, rebound (units unknown) (unknown) (unknown) (no date) (unknown) (unknown) General (units unknown) (unknown) (unknown) (no date) (unknown) (unknown) General: cooperative , comfortable, in no acute distress, well groomed, appears (units unknown) (unknown) (unknown) (no date) (unknown) (unknown) Grandfather Smoker (units unknown) (unknown) (unknown) (no date) (unknown) (unknown) Grandfather Unknown whether patient has any health problems (units unknown) (unknown) (unknown) (no date) (unknown) (unknown) Grandmother Diabetes mellitus (units unknown) (unknown) (unknown) (no date) (unknown) (unknown) Grandmother Hypoglycemia (units unknown) (unknown) (unknown) (no date) (unknown) (unknown) H/O dilation and curettage (-12/14/16) (units unknown) (unknown) (unknown) (no date) (unknown) (unknown) H/O wisdom tooth extraction () (units unknown) (unknown) (unknown) (no date) (unknown) (unknown) HEENT: symmetrical facial expressions, dry mucous membranes (units unknown) (unknown) (unknown) (no date) (unknown) (unknown) HPI - Alcohol (units unknown) (unknown) (unknown) (no date) (unknown) (unknown) HPI narrative: (units unknown) (unknown) (unknown) (no date) (unknown) (unknown) Hct (36-46) % (units unknown) (unknown) (unknown) (no date) (unknown) (unknown) Hct 35.3 L (36-46) % (units unknown) (unknown) (unknown) (no date) (unknown) (unknown) Headache/fullness in head ?> 1 = Very mild (units unknown) (unknown) (unknown) (no date) (unknown) (unknown) Hgb (12.0-16.0) g/dL (units unknown) (unknown) (unknown) (no date) (unknown) (unknown) Hgb 11.5 L (12.0-16.0) g/dL (units unknown) (unknown) (unknown) (no date) (unknown) (unknown) History of Present Illness (units unknown) (unknown) (unknown) (no date) (unknown) (unknown) Home Medications (units unknown) (unknown) (unknown) (no date) (unknown) (unknown) I have independently reviewed the patient's vital signs and nursing notes as (units unknown) (unknown) (unknown) (no date) (unknown) (unknown) INPUTS: (units unknown) (unknown) (unknown) (no date) (unknown) (unknown) Independent historian: Patient (units unknown) (unknown) (unknown) (no date) (unknown) (unknown) Initial Vital Signs (units unknown) (unknown) (unknown) (no date) (unknown) (unknown) Initial Vital Signs: (units unknown) (unknown) (unknown) (no date) (unknown) (unknown) Insomnia (units unknown) (unknown) (unknown) (no date) (unknown) (unknown) Interpretation: (units unknown) (unknown) (unknown) (no date) (unknown) (unknown) [address] [id number] (units unknown) (unknown) (unknown) (no date) (unknown) (unknown) Lab Data (units unknown) (unknown) (unknown) (no date) (unknown) (unknown) Lab Results (units unknown) (unknown) (unknown) (no date) (unknown) (unknown) Labs: (units unknown) (unknown) (unknown) (no date) (unknown) (unknown) Last Admin: 07/12/22 18:39 Dose: 4 mg (units unknown) (unknown) (unknown) (no date) (unknown) (unknown) Last Admin: 07/12/22 18:40 Dose: 1 mg (units unknown) (unknown) (unknown) (no date) (unknown) (unknown) Last Admin: 07/12/22 18:56 Dose: Not Given (units unknown) (unknown) (unknown) (no date) (unknown) (unknown) Lorazepam (Lorazepam 0.5 Mg Tablet) 1 mg PO NOW ONE (units unknown) (unknown) (unknown) (no date) (unknown) (unknown) Lorazepam (Lorazepam 0.5 Mg Tablet) 2 mg PO NOW ONE (units unknown) (unknown) (unknown) (no date) (unknown) (unknown) Lorazepam (Lorazepam 2 Mg/Ml Inj) 2 mg IV NOW ONE (units unknown) (unknown) (unknown) (no date) (unknown) (unknown) Lymph # (Auto) ([id number]) /uL (units unknown) (unknown) (unknown) (no date) (unknown) (unknown) Lymph # (Auto) 1700 ([id number]) /uL (units unknown) (unknown) (unknown) (no date) (unknown) (unknown) Lymph % (Auto) (25-40) % (units unknown) (unknown) (unknown) (no date) (unknown) (unknown) Lymph % (Auto) 50.6 H (25-40) % (units unknown) (unknown) (unknown) (no date) (unknown) (unknown) MCH (26-34) PG (units unknown) (unknown) (unknown) (no date) (unknown) (unknown) MCH 26.0 (26-34) PG (units unknown) (unknown) (unknown) (no date) (unknown) (unknown) MCHC (30-36) % (units unknown) (unknown) (unknown) (no date) (unknown) (unknown) MCHC 32.7 (30-36) % (units unknown) (unknown) (unknown) (no date) (unknown) (unknown) MCV (80-100) fL (units unknown) (unknown) (unknown) (no date) (unknown) (unknown) MCV 79.5 L (80-100) fL (units unknown) (unknown) (unknown) (no date) (unknown) (unknown) MDM - Alcohol (units unknown) (unknown) (unknown) (no date) (unknown) (unknown) MDM Narrative (units unknown) (unknown) (unknown) (no date) (unknown) (unknown) MIPS: This encounter doesn't have any diagnosis' associated with MIPS criteria. (units unknown) (unknown) (unknown) (no date) (unknown) (unknown) MSK: moves all extremities, neurovascularly intact, no weakness, normal tone no (units unknown) (unknown) (unknown) (no date) (unknown) (unknown) Medical History (units unknown) (unknown) (unknown) (no date) (unknown) (unknown) Medical decision making narrative: (units unknown) (unknown) (unknown) (no date) (unknown) (unknown) Medication Instructions Recorded Confirmed (units unknown) (unknown) (unknown) (no date) (unknown) (unknown) Medication Instructions Recorded (units unknown) (unknown) (unknown) (no date) (unknown) (unknown) Menometrorrhagia (units unknown) (unknown) (unknown) (no date) (unknown) (unknown) Mode of arrival: Ambulatory (units unknown) (unknown) (unknown) (no date) (unknown) (unknown) [place] # (Auto) (0-900 ) /uL (units unknown) (unknown) (unknown) (no date) (unknown) (unknown) [place] # (Auto) 100 (0-900) /uL (units unknown) (unknown) (unknown) (no date) (unknown) (unknown) [place] % (Auto) (3-14) % (units unknown) (unknown) (unknown) (no date) (unknown) (unknown) [place] % (Auto) 2.7 L (3-14) % (units unknown) (unknown) (unknown) (no date) (unknown) (unknown) Mother Diabetes mellitus (units unknown) (unknown) (unknown) (no date) (unknown) (unknown) Narrative (units unknown) (unknown) (unknown) (no date) (unknown) (unknown) Nausea/vomiting ?> 0 = No nausea and no vomiting (units unknown) (unknown) (unknown) (no date) (unknown) (unknown) Neuro: normal speech and cognition, A+O x3, ambulatory, clear speech (units unknown) (unknown) (unknown) (no date) (unknown) (unknown) Neut # (Auto) (4135-7582) /uL (units unknown) (unknown) (unknown) (no date) (unknown) (unknown) Neut # (Auto) 1500 (6168-3727) /uL (units unknown) (unknown) (unknown) (no date) (unknown) (unknown) Neut % (Auto) (50-75 ) % (units unknown) (unknown) (unknown) (no date) (unknown) (unknown) Neut % (Auto) 45.5 L (50-75) % (units unknown) (unknown) (unknown) (no date) (unknown) (unknown) No Action (units unknown) (unknown) (unknown) (no date) (unknown) (unknown) Obesity (units unknown) (unknown) (unknown) (no date) (unknown) (unknown) Ondansetron HCl (Ondansetron 4 Mg Odt) 4 mg SL NOW ONE (units unknown) (unknown) (unknown) (no date) (unknown) (unknown) Ondansetron HCl (Ondansetron 4 Mg/2 Ml Inj) 4 mg IV Q6HR PRN (units unknown) (unknown) (unknown) (no date) (unknown) (unknown) Ordered: (units unknown) (unknown) (unknown) (no date) (unknown) (unknown) Orders (units unknown) (unknown) (unknown) (no date) (unknown) (unknown) Orientation/clouding of sensorium ?> 0 = Oriented, can do serial additions (units unknown) (unknown) (unknown) (no date) (unknown) (unknown) Overweight (units unknown) (unknown) (unknown) (no date) (unknown) (unknown) Oxygen Delivery Method Room Air 07/12/22 16:10 (units unknown) (unknown) (unknown) (no date) (unknown) (unknown) Oxygen Delivery Method Room Air Room Air (units unknown) (unknown) (unknown) (no date) (unknown) (unknown) PRN Reason: Nausea And Vomiting (units unknown) (unknown) (unknown) (no date) (unknown) (unknown) Paroxysmal sweats ?> 0 = No sweat visible (units unknown) (unknown) (unknown) (no date) (unknown) (unknown) Patient History (units unknown) (unknown) (unknown) (no date) (unknown) (unknown) Patient is appropriate for outpatient management. (units unknown) (unknown) (unknown) (no date) (unknown) (unknown) Patient: Sarah Connors MR#: M (units unknown) (unknown) (unknown) (no date) (unknown) (unknown) Patients with scores >= may require medication for withdrawal. (units unknown) (unknown) (unknown) (no date) (unknown) (unknown) Pertinent lab findings reviewed: (units unknown) (unknown) (unknown) (no date) (unknown) (unknown) Plt Count (150-400) X103/uL (units unknown) (unknown) (unknown) (no date) (unknown) (unknown) Plt Count 226 (150-400) X103/uL (units unknown) (unknown) (unknown) (no date) (unknown) (unknown) Point of Care Testing (units unknown) (unknown) (unknown) (no date) (unknown) (unknown) Test Results Negative (units unknown) (unknown) (unknown) (no date) (unknown) (unknown) Prescriptions: (units unknown) (unknown) (unknown) (no date) (unknown) (unknown) Previous Rx's (units unknown) (unknown) (unknown) (no date) (unknown) (unknown) Psych: mental status is grossly normal, congruent mood, normal affect, pleasant (units unknown) (unknown) (unknown) (no date) (unknown) (unknown) Pulse Oximetry 99 07/12/22 16:10 (units unknown) (unknown) (unknown) (no date) (unknown) (unknown) Pulse Oximetry 99 99 (units unknown) (unknown) (unknown) (no date) (unknown) (unknown) Pulse Rate 82 07/12/22 16:10 (units unknown) (unknown) (unknown) (no date) (unknown) (unknown) Pulse Rate 82 86 (units unknown) (unknown) (unknown) (no date) (unknown) (unknown) Questions are addressed and there is agreement with the plan and for follow-up. (units unknown) (unknown) (unknown) (no date) (unknown) (unknown) RBC (4.0-5.2) X106/uL (units unknown) (unknown) (unknown) (no date) (unknown) (unknown) RBC 4.44 (4.0-5.2) X106/uL (units unknown) (unknown) (unknown) (no date) (unknown) (unknown) RDW (11.6-14.8) % (units unknown) (unknown) (unknown) (no date) (unknown) (unknown) RDW 17.3 H (11.6-14.8) % (units unknown) (unknown) (unknown) (no date) (unknown) (unknown) RESULT SUMMARY: (units unknown) (unknown) (unknown) (no date) (unknown) (unknown) ROS Unobtainable: Al l systems reviewed + are unremarkable except as noted in HPI (units unknown) (unknown) (unknown) (no date) (unknown) (unknown) Referrals: (units unknown) (unknown) (unknown) (no date) (unknown) (unknown) Related Data (units unknown) (unknown) (unknown) (no date) (unknown) (unknown) Respiratory Rate 14 07/12/22 16:10 (units unknown) (unknown) (unknown) (no date) (unknown) (unknown) Respiratory Rate 14 22 (units unknown) (unknown) (unknown) (no date) (unknown) (unknown) Respiratory: normal effort, able to speak in complete sentences, without (units unknown) (unknown) (unknown) (no date) (unknown) (unknown) Review of Systems (units unknown) (unknown) (unknown) (no date) (unknown) (unknown) Reviewed vitals sign s and nursing notes. (units unknown) (unknown) (unknown) (no date) (unknown) (unknown) S/P myringotomy with insertion of tube (units unknown) (unknown) (unknown) (no date) (unknown) (unknown) SARS-CoV-2 (PCR) (Negative) (units unknown) (unknown) (unknown) (no date) (unknown) (unknown) SARS-CoV-2 (PCR) Negative (Negative) (units unknown) (unknown) (unknown) (no date) (unknown) (unknown) (spontaneous vaginal delivery) (-09/05/18) (units unknown) (unknown) (unknown) (no date) (unknown) (unknown) Salicylate Stat (units unknown) (unknown) (unknown) (no date) (unknown) (unknown) She was given a couple water, a diet order was ordered however they may not (units unknown) (unknown) (unknown) (no date) (unknown) (unknown) Signed By: (units unknown) (unknown) (unknown) (no date) (unknown) (unknown) Skin: brisk capillar y refill, without pallor or erythema (units unknown) (unknown) (unknown) (no date) (unknown) (unknown) Smoker (units unknown) (unknown) (unknown) (no date) (unknown) (unknown) Smoking Status: Former smoker (units unknown) (unknown) (unknown) (no date) (unknown) (unknown) Social History (units unknown) (unknown) (unknown) (no date) (unknown) (unknown) Social consideration s that may affect disposition: none (units unknown) (unknown) (unknown) (no date) (unknown) (unknown) Sodium Chloride (Normal Saline 0.9%) 1,000 mls @ 1,000 mls/hr IV BOLUS ONE (units unknown) (unknown) (unknown) (no date) (unknown) (unknown) Source: patient (units unknown) (unknown) (unknown) (no date) (unknown) (unknown) Stated Complaint: Stress/Depression (units unknown) (unknown) (unknown) (no date) (unknown) (unknown) Stop: 07/12/22 17:33 (units unknown) (unknown) (unknown) (no date) (unknown) (unknown) Stop: 07/12/22 17:45 (units unknown) (unknown) (unknown) (no date) (unknown) (unknown) Stop: 07/12/22 18:28 (units unknown) (unknown) (unknown) (no date) (unknown) (unknown) Stop: 07/12/22 18:31 (units unknown) (unknown) (unknown) (no date) (unknown) (unknown) Stop: 07/12/22 19:25 (units unknown) (unknown) (unknown) (no date) (unknown) (unknown) Substance Use Type: does not use (units unknown) (unknown) (unknown) (no date) (unknown) (unknown) Surgical History (units unknown) (unknown) (unknown) (no date) (unknown) (unknown) Tactile disturbances ?> 1 = Very mild itching, pin and needles, burning, or (units unknown) (unknown) (unknown) (no date) (unknown) (unknown) Temperature 97.2 F L 07/12/22 16:10 (units unknown) (unknown) (unknown) (no date) (unknown) (unknown) Temperature 97.2 F L (units unknown) (unknown) (unknown) (no date) (unknown) (unknown) Thiamine HCl (Thiamine 100 Mg Tablet) 100 mg PO NOW ONE (units unknown) (unknown) (unknown) (no date) (unknown) (unknown) Thiamine HCl 200 mg/ Sodium (Chloride) 102 mls @ 408 mls/hr IV NOW ONE (units unknown) (unknown) (unknown) (no date) (unknown) (unknown) This is a 31-year-ol d female with history of alcohol abuse and appears to have (units unknown) (unknown) (unknown) (no date) (unknown) (unknown) Thyroid Stimulating Hormone Stat (units unknown) (unknown) (unknown) (no date) (unknown) (unknown) Time Seen by Provider: 07/12/22 17:05 (units unknown) (unknown) (unknown) (no date) (unknown) (unknown) Tremor ?> 1 = Not visible, but can be felt fingertip to fingertip (units unknown) (unknown) (unknown) (no date) (unknown) (unknown) U Benzodiazepines Scrn (Negative) (units unknown) (unknown) (unknown) (no date) (unknown) (unknown) U Benzodiazepines Scrn Negative (Negative) (units unknown) (unknown) (unknown) (no date) (unknown) (unknown) U Marijuana (THC) Screen (Negative) (units unknown) (unknown) (unknown) (no date) (unknown) (unknown) U Marijuana (THC) Screen Negative (Negative) (units unknown) (unknown) (unknown) (no date) (unknown) (unknown) U Methamphetamines Scrn (Negative) (units unknown) (unknown) (unknown) (no date) (unknown) (unknown) U Methamphetamines Scrn Negative (Negative) (units unknown) (unknown) (unknown) (no date) (unknown) (unknown) U Opiates 300ng/mL cut (Negative) (units unknown) (unknown) (unknown) (no date) (unknown) (unknown) U Opiates 300ng/mL cut Negative (Negative) (units unknown) (unknown) (unknown) (no date) (unknown) (unknown) U Tricyclic Antidepress (Negative) (units unknown) (unknown) (unknown) (no date) (unknown) (unknown) U Tricyclic Antidepress Negative (Negative) (units unknown) (unknown) (unknown) (no date) (unknown) (unknown) Ur Amphetamines Screen (Negative) (units unknown) (unknown) (unknown) (no date) (unknown) (unknown) Ur Amphetamines Screen Negative (Negative) (units unknown) (unknown) (unknown) (no date) (unknown) (unknown) Ur Barbiturates Screen (Negative) (units unknown) (unknown) (unknown) (no date) (unknown) (unknown) Ur Barbiturates Screen Negative (Negative) (units unknown) (unknown) (unknown) (no date) (unknown) (unknown) Ur Culture Indicated ? Specimen cultured (units unknown) (unknown) (unknown) (no date) (unknown) (unknown) Ur Culture Indicated? (units unknown) (unknown) (unknown) (no date) (unknown) (unknown) Ur MDMA Scrn (Ecstasy) (Negative) (units unknown) (unknown) (unknown) (no date) (unknown) (unknown) Ur MDMA Scrn (Ecstasy) Negative (Negative) (units unknown) (unknown) (unknown) (no date) (unknown) (unknown) Ur Oxycodone Screen (Negative) (units unknown) (unknown) (unknown) (no date) (unknown) (unknown) Ur Oxycodone Screen Negative (Negative) (units unknown) (unknown) (unknown) (no date) (unknown) (unknown) Ur Phencyclidine Scr n (Negative) (units unknown) (unknown) (unknown) (no date) (unknown) (unknown) Ur Phencyclidine Scr n Negative (Negative) (units unknown) (unknown) (unknown) (no date) (unknown) (unknown) Ur Squamous Epith Cells (0-5/HPF) (units unknown) (unknown) (unknown) (no date) (unknown) (unknown) Ur Squamous Epith Cells 1-5 /hpf (0-5/HPF) (units unknown) (unknown) (unknown) (no date) (unknown) (unknown) Urine Bacteria (None) (units unknown) (unknown) (unknown) (no date) (unknown) (unknown) Urine Bacteria Many (>30) H (None) (units unknown) (unknown) (unknown) (no date) (unknown) (unknown) Urine Cocaine Screen (Negative) (units unknown) (unknown) (unknown) (no date) (unknown) (unknown) Urine Cocaine Screen Negative (Negative) (units unknown) (unknown) (unknown) (no date) (unknown) (unknown) Urine Culture Stat (units unknown) (unknown) (unknown) (no date) (unknown) (unknown) Urine Dip (units unknown) (unknown) (unknown) (no date) (unknown) (unknown) Urine Drug Screen, Rapid Stat (units unknown) (unknown) (unknown) (no date) (unknown) (unknown) Urine Methadone Screen (Negative) (units unknown) (unknown) (unknown) (no date) (unknown) (unknown) Urine Methadone Screen Negative (Negative) (units unknown) (unknown) (unknown) (no date) (unknown) (unknown) Urine Microscopic Stat (units unknown) (unknown) (unknown) (no date) (unknown) (unknown) Urine RBC (0-5/HPF) (units unknown) (unknown) (unknown) (no date) (unknown) (unknown) Urine RBC 1-5/hpf (0-5/HPF) (units unknown) (unknown) (unknown) (no date) (unknown) (unknown) Urine Specific [place] 1.015 (units unknown) (unknown) (unknown) (no date) (unknown) (unknown) Urine WBC (0-5/HPF) (units unknown) (unknown) (unknown) (no date) (unknown) (unknown) Urine WBC 1-5/hpf (0-5/HPF) (units unknown) (unknown) (unknown) (no date) (unknown) (unknown) Visual disturbances ?> 1 = Very mild sensitivity (units unknown) (unknown) (unknown) (no date) (unknown) (unknown) Vital Signs - 8 hr (units unknown) (unknown) (unknown) (no date) (unknown) (unknown) Vital Signs (units unknown) (unknown) (unknown) (no date) (unknown) (unknown) Vital signs: (units unknown) (unknown) (unknown) (no date) (unknown) (unknown) WBC (4.5-11.0) X103/uL (units unknown) (unknown) (unknown) (no date) (unknown) (unknown) WBC 3.3 L (4.5-11.0) X103/uL (units unknown) (unknown) (unknown) (no date) (unknown) (unknown) [Embedded Image Not Available] (units unknown) (unknown) (unknown) (no date) (unknown) (unknown) [METOCLOPRAMIDE] (units unknown) (unknown) (unknown) (no date) (unknown) (unknown) acetaminophen 325 mg tablet 325 mg PO Q6H PRN pain #20 tabs 02/05/20 (units unknown) (unknown) (unknown) (no date) (unknown) (unknown) acetaminophen [Tylenol] 325 mg tablet (units unknown) (unknown) (unknown) (no date) (unknown) (unknown) acute ischemic changes. (units unknown) (unknown) (unknown) (no date) (unknown) (unknown) alcohol in 300s, she was last here in the emergency department in May of (units unknown) (unknown) (unknown) (no date) (unknown) (unknown) alcohol intake frequency: 3 or more drinks per day (units unknown) (unknown) (unknown) (no date) (unknown) (unknown) alcohol intake: former (units unknown) (unknown) (unknown) (no date) (unknown) (unknown) and below (units unknown) (unknown) (unknown) (no date) (unknown) (unknown) and cooperative (units unknown) (unknown) (unknown) (no date) (unknown) (unknown) at extension and states that she feels symptoms of alcohol withdrawal. Denies (units unknown) (unknown) (unknown) (no date) (unknown) (unknown) current occupational exposures/hazards: Yes (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 with Pandemic ) (units unknown) (unknown) (unknown) (no date) (unknown) (unknown) cystitis, she is p.o . tolerant, still pending lab work (units unknown) (unknown) (unknown) (no date) (unknown) (unknown) deliver since it is after 17:00 and the diet order was ordered at 17:30. Samira (units unknown) (unknown) (unknown) (no date) (unknown) (unknown) detox as well. (units unknown) (unknown) (unknown) (no date) (unknown) (unknown) diarrhea or current stool changes. (units unknown) (unknown) (unknown) (no date) (unknown) (unknown) diphenhydramine HCl 25 mg capsule 25 mg PO BEDTIME PRN insomnia #20 02/05/20 (units unknown) (unknown) (unknown) (no date) (unknown) (unknown) diphenhydramine HCl [Benadryl] 25 mg capsule (units unknown) (unknown) (unknown) (no date) (unknown) (unknown) docusate sodium 100 mg capsule 100 mg PO BID #30 caps 02/05/20 (units unknown) (unknown) (unknown) (no date) (unknown) (unknown) docusate sodium [Colace] 100 mg capsule (units unknown) (unknown) (unknown) (no date) (unknown) (unknown) draw her labs (units unknown) (unknown) (unknown) (no date) (unknown) (unknown) education level: college 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[employer] (units unknown) (unknown) (unknown) (no date) (unknown) (unknown) fluid, EtOH, and CIWA, ordered 2 mg of IV lorazepam for patient's symptoms, (units unknown) (unknown) (unknown) (no date) (unknown) (unknown) for alcohol related complaints through 2019, and she presented to the [facility] (units unknown) (unknown) (unknown) (no date) (unknown) (unknown) from social work is aware and pending her lab work to arrange for inpatient (units unknown) (unknown) (unknown) (no date) (unknown) (unknown) her urine microscopy came back positive for many bacteria, will treat for acute (units unknown) (unknown) (unknown) (no date) (unknown) (unknown) household members: spouse and children (units unknown) (unknown) (unknown) (no date) (unknown) (unknown) hydrocodone [HYDROCODONE] AdvReac Unknown VOMITING Verified 07/12/22 16:18 (units unknown) (unknown) (unknown) (no date) (unknown) (unknown) ibuprofen 600 mg Tablet (units unknown) (unknown) (unknown) (no date) (unknown) (unknown) ibuprofen 600 mg tablet 600 mg PO Q6HR PRN Pain, Mild 07/04/20 (units unknown) (unknown) (unknown) (no date) (unknown) (unknown) injuries, denies chance of , denies any other ingestions, is pleasant, (units unknown) (unknown) (unknown) (no date) (unknown) (unknown) intoxicated, pleasant, interactive and comfortable although active and fidgeting (units unknown) (unknown) (unknown) (no date) (unknown) (unknown) limited history currently due to intoxication. She states that she is recently (units unknown) (unknown) (unknown) (no date) (unknown) (unknown) lorazepam for this (units unknown) (unknown) (unknown) (no date) (unknown) (unknown) marital status: (units unknown) (unknown) (unknown) (no date) (unknown) (unknown) metoclopramide Allergy Mild RASH/HIVES Verified 07/12/22 16:18 (units unknown) (unknown) (unknown) (no date) (unknown) (unknown) nausea vomiting or abdominal pain at this time. Denies any vomiting home or (units unknown) (unknown) (unknown) (no date) (unknown) (unknown) number of children: 1 (units unknown) (unknown) (unknown) (no date) (unknown) (unknown) numbness (units unknown) (unknown) (unknown) (no date) (unknown) (unknown) occupational status: employed (units unknown) (unknown) (unknown) (no date) (unknown) (unknown) ondansetron 4 mg disintegrating 4 mg PO Q6H PRN nausea and 06/12/22 (units unknown) (unknown) (unknown) (no date) (unknown) (unknown) ondansetron 4 mg disintegrating 4 mg PO Q8H PRN nausea and 01/01/20 (units unknown) (unknown) (unknown) (no date) (unknown) (unknown) ondansetron 4 mg disintegrating 4 mg PO Q8H PRN nausea and 02/05/20 (units unknown) (unknown) (unknown) (no date) (unknown) (unknown) ondansetron 4 mg tablet,disintegrating (units unknown) (unknown) (unknown) (no date) (unknown) (unknown) ordered p.o. Ativan for her symptoms and ask our into call lab to come up and (units unknown) (unknown) (unknown) (no date) (unknown) (unknown) prenat.vits,otis,min- i thang-folic 1 tab PO DAILY 12/30/19 07/03/20 (units unknown) (unknown) (unknown) (no date) (unknown) (unknown) prenat.vits,otis,min- i thang-folic Tablet (units unknown) (unknown) (unknown) (no date) (unknown) (unknown) relapsed due to a divorce with her . She used to be a frequent visitor (units unknown) (unknown) (unknown) (no date) (unknown) (unknown) second hand exposure : No (growing up as a child - not currently) (units unknown) (unknown) (unknown) (no date) (unknown) (unknown) seeking help with he r intoxication and wishes to go to detox. (units unknown) (unknown) (unknown) (no date) (unknown) (unknown) significant tremor o r tongue fasciculation, she has a mild tremor with her arms (units unknown) (unknown) (unknown) (no date) (unknown) (unknown) social work and orders are pending (units unknown) (unknown) (unknown) (no date) (unknown) (unknown) special renee needs: No (units unknown) (unknown) (unknown) (no date) (unknown) (unknown) substance abuse, alcohol intoxication, psychosis, mood disorder, depression (units unknown) (unknown) (unknown) (no date) (unknown) (unknown) substance use type: does not use (units unknown) (unknown) (unknown) (no date) (unknown) (unknown) tablet vomiting #14 tabs (units unknown) (unknown) (unknown) (no date) (unknown) (unknown) tablet vomiting #20 tabs (units unknown) (unknown) (unknown) (no date) (unknown) (unknown) tablet vomiting #30 tabs (units unknown) (unknown) (unknown) (no date) (unknown) (unknown) tenderness or exquisite tenderness with exam. (units unknown) (unknown) (unknown) (no date) (unknown) (unknown) that she drinks vodk a and admits to drinking heavily today, states that she took (units unknown) (unknown) (unknown) (no date) (unknown) (unknown) the bottle upside down and started checking from it. She denies any recent (units unknown) (unknown) (unknown) (no date) (unknown) (unknown) tramadol 50 mg table t 50 mg PO Q6H PRN pain #10 tabs 06/12/22 (units unknown) (unknown) (unknown) (no date) (unknown) (unknown) tramadol 50 mg tablet (units unknown) (unknown) (unknown) (no date) (unknown) (unknown) tremors, no tachycardia, her CIWA is currently 10, ordered another p.o. dose of (units unknown) (unknown) (unknown) (no date) (unknown) (unknown) well as prior record s if available. (units unknown) (unknown) (unknown) (no date) (unknown) (unknown) wheezing, stridor, o r abnormal breath sounds. No retractions or tachypnea. (units unknown) (unknown) (unknown) (no date) (unknown) (unknown) with regular axis an d intervals. No STEMI, ST segment changes, arrhythmia, or (units unknown) (unknown) Result panel 2175 (unknown) (no date) (unknown) (unknown) (no value) (units unknown) (unknown) (unknown) (no date) (unknown) (unknown) (1-3) #30 tabs (units unknown) (unknown) (unknown) (no date) (unknown) (unknown) (Benadryl) caps (units unknown) (unknown) (unknown) (no date) (unknown) (unknown) (Colace) (units unknown) (unknown) (unknown) (no date) (unknown) (unknown) (Tylenol) (units unknown) (unknown) (unknown) (no date) (unknown) (unknown) [id number] (units unknown) (unknown) (unknown) (no date) (unknown) (unknown) 07/12/22 07/12/22 07/12/22 Range/Units (units unknown) (unknown) (unknown) (no date) (unknown) (unknown) 07/12/22 16:28 (units unknown) (unknown) (unknown) (no date) (unknown) (unknown) 07/12/22 16:32 (units unknown) (unknown) (unknown) (no date) (unknown) (unknown) 07/12/22 18:28 (units unknown) (unknown) (unknown) (no date) (unknown) (unknown) 07/12/22 19:15 (units unknown) (unknown) (unknown) (no date) (unknown) (unknown) 07/12/22 Range/Units (units unknown) (unknown) (unknown) (no date) (unknown) (unknown) 07/12/22 (units unknown) (unknown) (unknown) (no date) (unknown) (unknown) 1 tab PO DAILY (units unknown) (unknown) (unknown) (no date) (unknown) (unknown) 100 mg PO BID Qty: 3 0 0RF (units unknown) (unknown) (unknown) (no date) (unknown) (unknown) 16:10 07/12/22 (units unknown) (unknown) (unknown) (no date) (unknown) (unknown) 16:32 16:32 16:32 (units unknown) (unknown) (unknown) (no date) (unknown) (unknown) 1836 patient still does not have an IV, has not received any IV fluid her (units unknown) (unknown) (unknown) (no date) (unknown) (unknown) 18:53 (units unknown) (unknown) (unknown) (no date) (unknown) (unknown) 1900 still no IV, patient is p.o. challenging, she received her p.o. lorazepam, (units unknown) (unknown) (unknown) (no date) (unknown) (unknown) 1929, patient now feels depressed, she is lying in bed, feeling bad, has (units unknown) (unknown) (unknown) (no date) (unknown) (unknown) 19:15 (units unknown) (unknown) (unknown) (no date) (unknown) (unknown) 2022 with similar symptoms. She comes in complaining of needing help, states (units unknown) (unknown) (unknown) (no date) (unknown) (unknown) 25 mg PO BEDTIME PRN (Reason: insomnia) Qty: 20 0RF (units unknown) (unknown) (unknown) (no date) (unknown) (unknown) 325 mg PO Q6H PRN (Reason: pain) Qty: 20 0RF (units unknown) (unknown) (unknown) (no date) (unknown) (unknown) 4 mg PO Q6H PRN (Reason: nausea and vomiting) Qty: 14 0RF (units unknown) (unknown) (unknown) (no date) (unknown) (unknown) 4 mg PO Q8H PRN (Reason: nausea and vomiting) Qty: 20 0RF (units unknown) (unknown) (unknown) (no date) (unknown) (unknown) 4 mg PO Q8H PRN (Reason: nausea and vomiting) Qty: 30 0RF (units unknown) (unknown) (unknown) (no date) (unknown) (unknown) 50 mg PO Q6H PRN (Reason: pain) Qty: 10 0RF (units unknown) (unknown) (unknown) (no date) (unknown) (unknown) 600 mg PO Q6HR PRN (Reason: Pain, Mild (1-3)) Qty: 30 0RF (units unknown) (unknown) (unknown) (no date) (unknown) (unknown) 9 points (units unknown) (unknown) (unknown) (no date) (unknown) (unknown) Acetaminophen Stat (units unknown) (unknown) (unknown) (no date) (unknown) (unknown) Age/Sex: 31 / F (units unknown) (unknown) (unknown) (no date) (unknown) (unknown) Agitation ?> 2 = (More severe symptoms) (units unknown) (unknown) (unknown) (no date) (unknown) (unknown) Alcohol use disorder , Acute cystitis (units unknown) (unknown) (unknown) (no date) (unknown) (unknown) Alcoholism (units unknown) (unknown) (unknown) (no date) (unknown) (unknown) Allergies (units unknown) (unknown) (unknown) (no date) (unknown) (unknown) Allergy/AdvReac Type Severity Reaction Status Date / Time (units unknown) (unknown) (unknown) (no date) (unknown) (unknown) Anemia (-2018) (units unknown) (unknown) (unknown) (no date) (unknown) (unknown) Anxiety ?> 2 = (More severe symptoms) (units unknown) (unknown) (unknown) (no date) (unknown) (unknown) Auditory disturbance s ?> 1 = Very mild harshness or ability to frighten (units unknown) (unknown) (unknown) (no date) (unknown) (unknown) Baso # (Auto) (0-100 ) /uL (units unknown) (unknown) (unknown) (no date) (unknown) (unknown) Baso # (Auto) 0 (0-100) /uL (units unknown) (unknown) (unknown) (no date) (unknown) (unknown) Baso % (Auto) (0-2) % (units unknown) (unknown) (unknown) (no date) (unknown) (unknown) Baso % (Auto) 0.9 (0-2) % (units unknown) (unknown) (unknown) (no date) (unknown) (unknown) Bedside Urine Bilirubin - Negative (units unknown) (unknown) (unknown) (no date) (unknown) (unknown) Bedside Urine Glucos e Negative (units unknown) (unknown) (unknown) (no date) (unknown) (unknown) Bedside Urine Ketone - Negative (units unknown) (unknown) (unknown) (no date) (unknown) (unknown) Bedside Urine Leukocytes - Negative (units unknown) (unknown) (unknown) (no date) (unknown) (unknown) Bedside Urine Nitrit e + Positive (units unknown) (unknown) (unknown) (no date) (unknown) (unknown) Bedside Urine Occult Blood - Negative (units unknown) (unknown) (unknown) (no date) (unknown) (unknown) Bedside Urine Protei n - Negative (units unknown) (unknown) (unknown) (no date) (unknown) (unknown) Bedside Urine Urobilinogen - Negative (units unknown) (unknown) (unknown) (no date) (unknown) (unknown) Bedside Urine pH 6.0 (units unknown) (unknown) (unknown) (no date) (unknown) (unknown) Blood Pressure 112/6 2 07/12/22 16:10 (units unknown) (unknown) (unknown) (no date) (unknown) (unknown) Blood Pressure 112/62 (units unknown) (unknown) (unknown) (no date) (unknown) (unknown) Blood Pressure [Left Arm] 100/59 L (units unknown) (unknown) (unknown) (no date) (unknown) (unknown) CIWA is now worse an d she has tremors, anxiety is worsening and agitation, (units unknown) (unknown) (unknown) (no date) (unknown) (unknown) CIWA-Ar for Alcohol Withdrawal from [email or web address] on 07/12/2022 (units unknown) (unknown) (unknown) (no date) (unknown) (unknown) COVID19 -Nasal RAPID/Pre-Proc Stat (units unknown) (unknown) (unknown) (no date) (unknown) (unknown) Cardiovascular: regular rate and rhythm, no peripheral edema, warm extremities (units unknown) (unknown) (unknown) (no date) (unknown) (unknown) Cephalexin HCl (Cephalexin 250 Mg Capsule) 500 mg PO Q6H SANDY (units unknown) (unknown) (unknown) (no date) (unknown) (unknown) Chief Complaint: Alcohol intoxication, seeking detox (units unknown) (unknown) (unknown) (no date) (unknown) (unknown) Chief Complaint: Toxicology Problem (units unknown) (unknown) (unknown) (no date) (unknown) (unknown) Clinical Impression: (units unknown) (unknown) (unknown) (no date) (unknown) (unknown) Clinical decision rules or scores evaluated: CIWA of 9 at 1753 (units unknown) (unknown) (unknown) (no date) (unknown) (unknown) Complete Blood Count AUTO DIFF Stat (units unknown) (unknown) (unknown) (no date) (unknown) (unknown) Comprehensive Metabolic Panel Stat (units unknown) (unknown) (unknown) (no date) (unknown) (unknown) 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 (units unknown) (unknown) (unknown) (no date) (unknown) (unknown) Course of care: Patient is a difficult IV stick, ordered IV with lab work, (units unknown) (unknown) (unknown) (no date) (unknown) (unknown) Course (units unknown) (unknown) (unknown) (no date) (unknown) (unknown) : 1990 Acct:[id number] (units unknown) (unknown) (unknown) (no date) (unknown) (unknown) Date of Service: 07/12/22 (units unknown) (unknown) (unknown) (no date) (unknown) (unknown) Departure (units unknown) (unknown) (unknown) (no date) (unknown) (unknown) Differential diagnoses include but are not limited to: Alcohol withdrawal, (units unknown) (unknown) (unknown) (no date) (unknown) (unknown) Discharge Plan (units unknown) (unknown) (unknown) (no date) (unknown) (unknown) Discontinued Medications (units unknown) (unknown) (unknown) (no date) (unknown) (unknown) ECG Data (units unknown) (unknown) (unknown) (no date) (unknown) (unknown) ED Orders (units unknown) (unknown) (unknown) (no date) (unknown) (unknown) EKG independently reviewed by myself at 1830 reveals normal sinus rhythm at 72 (units unknown) (unknown) (unknown) (no date) (unknown) (unknown) EKG-12 Lead Stat (units unknown) (unknown) (unknown) (no date) (unknown) (unknown) ER Physician: Juliet Paz (units unknown) (unknown) (unknown) (no date) (unknown) (unknown) Emergency Report (units unknown) (unknown) (unknown) (no date) (unknown) (unknown) Eos # (Auto) (0-450) /uL (units unknown) (unknown) (unknown) (no date) (unknown) (unknown) Eos # (Auto) 0 (0-450) /uL (units unknown) (unknown) (unknown) (no date) (unknown) (unknown) Eos % (Auto) (2-4) % (units unknown) (unknown) (unknown) (no date) (unknown) (unknown) Eos % (Auto) 0.3 L (2-4) % (units unknown) (unknown) (unknown) (no date) (unknown) (unknown) Esterase (units unknown) (unknown) (unknown) (no date) (unknown) (unknown) Ethanol (ETOH) Stat (units unknown) (unknown) (unknown) (no date) (unknown) (unknown) Exam Narrative: (units unknown) (unknown) (unknown) (no date) (unknown) (unknown) Exam (units unknown) (unknown) (unknown) (no date) (unknown) (unknown) Family History (units unknown) (unknown) (unknown) (no date) (unknown) (unknown) Family/Other Alcoholism (units unknown) (unknown) (unknown) (no date) (unknown) (unknown) Family/Other Diabete s mellitus (units unknown) (unknown) (unknown) (no date) (unknown) (unknown) Father Alcoholism (units unknown) (unknown) (unknown) (no date) (unknown) (unknown) Tonia Schneider MD [Primary Care Provider] (units unknown) (unknown) (unknown) (no date) (unknown) (unknown) Folic Acid (Folic Acid 1 Mg Tablet) 1 mg PO DAILY SANDY (units unknown) (unknown) (unknown) (no date) (unknown) (unknown) Free T4, Direct Thyroxine Stat (units unknown) (unknown) (unknown) (no date) (unknown) (unknown) GI: abdomen soft, nontender to palpation, nondistended, without masses, rebound (units unknown) (unknown) (unknown) (no date) (unknown) (unknown) General (units unknown) (unknown) (unknown) (no date) (unknown) (unknown) General: cooperative , comfortable, in no acute distress, well groomed, appears (units unknown) (unknown) (unknown) (no date) (unknown) (unknown) Grandfather Smoker (units unknown) (unknown) (unknown) (no date) (unknown) (unknown) Grandfather Unknown whether patient has any health problems (units unknown) (unknown) (unknown) (no date) (unknown) (unknown) Grandmother Diabetes mellitus (units unknown) (unknown) (unknown) (no date) (unknown) (unknown) Grandmother Hypoglycemia (units unknown) (unknown) (unknown) (no date) (unknown) (unknown) H/O dilation and curettage (-12/14/16) (units unknown) (unknown) (unknown) (no date) (unknown) (unknown) H/O wisdom tooth extraction () (units unknown) (unknown) (unknown) (no date) (unknown) (unknown) HEENT: symmetrical facial expressions, dry mucous membranes (units unknown) (unknown) (unknown) (no date) (unknown) (unknown) HPI - Alcohol (units unknown) (unknown) (unknown) (no date) (unknown) (unknown) HPI narrative: (units unknown) (unknown) (unknown) (no date) (unknown) (unknown) Hct (36-46) % (units unknown) (unknown) (unknown) (no date) (unknown) (unknown) Hct 35.3 L (36-46) % (units unknown) (unknown) (unknown) (no date) (unknown) (unknown) Headache/fullness in head ?> 1 = Very mild (units unknown) (unknown) (unknown) (no date) (unknown) (unknown) Hgb (12.0-16.0) g/dL (units unknown) (unknown) (unknown) (no date) (unknown) (unknown) Hgb 11.5 L (12.0-16.0) g/dL (units unknown) (unknown) (unknown) (no date) (unknown) (unknown) History of Present Illness (units unknown) (unknown) (unknown) (no date) (unknown) (unknown) Home Medications (units unknown) (unknown) (unknown) (no date) (unknown) (unknown) I have independently reviewed the patient's vital signs and nursing notes as (units unknown) (unknown) (unknown) (no date) (unknown) (unknown) INPUTS: (units unknown) (unknown) (unknown) (no date) (unknown) (unknown) Independent historian: Patient (units unknown) (unknown) (unknown) (no date) (unknown) (unknown) Initial Vital Signs (units unknown) (unknown) (unknown) (no date) (unknown) (unknown) Initial Vital Signs: (units unknown) (unknown) (unknown) (no date) (unknown) (unknown) Insomnia (units unknown) (unknown) (unknown) (no date) (unknown) (unknown) Interpretation: (units unknown) (unknown) (unknown) (no date) (unknown) (unknown) [address] [address] (units unknown) (unknown) (unknown) (no date) (unknown) (unknown) Lab Data (units unknown) (unknown) (unknown) (no date) (unknown) (unknown) Lab Results (units unknown) (unknown) (unknown) (no date) (unknown) (unknown) Labs: (units unknown) (unknown) (unknown) (no date) (unknown) (unknown) Last Admin: 07/12/22 18:39 Dose: 4 mg (units unknown) (unknown) (unknown) (no date) (unknown) (unknown) Last Admin: 07/12/22 18:40 Dose: 1 mg (units unknown) (unknown) (unknown) (no date) (unknown) (unknown) Last Admin: 07/12/22 18:56 Dose: Not Given (units unknown) (unknown) (unknown) (no date) (unknown) (unknown) Lorazepam (Lorazepam 0.5 Mg Tablet) 1 mg PO NOW ONE (units unknown) (unknown) (unknown) (no date) (unknown) (unknown) Lorazepam (Lorazepam 0.5 Mg Tablet) 2 mg PO NOW ONE (units unknown) (unknown) (unknown) (no date) (unknown) (unknown) Lorazepam (Lorazepam 2 Mg/Ml Inj) 2 mg IV NOW ONE (units unknown) (unknown) (unknown) (no date) (unknown) (unknown) Lymph # (Auto) (9667-1532) /uL (units unknown) (unknown) (unknown) (no date) (unknown) (unknown) Lymph # (Auto) 1700 (6341-3711) /uL (units unknown) (unknown) (unknown) (no date) (unknown) (unknown) Lymph % (Auto) (25-40) % (units unknown) (unknown) (unknown) (no date) (unknown) (unknown) Lymph % (Auto) 50.6 H (25-40) % (units unknown) (unknown) (unknown) (no date) (unknown) (unknown) MCH (26-34) PG (units unknown) (unknown) (unknown) (no date) (unknown) (unknown) MCH 26.0 (26-34) PG (units unknown) (unknown) (unknown) (no date) (unknown) (unknown) MCHC (30-36) % (units unknown) (unknown) (unknown) (no date) (unknown) (unknown) MCHC 32.7 (30-36) % (units unknown) (unknown) (unknown) (no date) (unknown) (unknown) MCV (80-100) fL (units unknown) (unknown) (unknown) (no date) (unknown) (unknown) MCV 79.5 L (80-100) fL (units unknown) (unknown) (unknown) (no date) (unknown) (unknown) MDM - Alcohol (units unknown) (unknown) (unknown) (no date) (unknown) (unknown) MDM Narrative (units unknown) (unknown) (unknown) (no date) (unknown) (unknown) MIPS: This encounter doesn't have any diagnosis' associated with MIPS criteria. (units unknown) (unknown) (unknown) (no date) (unknown) (unknown) MSK: moves all extremities, neurovascularly intact, no weakness, normal tone no (units unknown) (unknown) (unknown) (no date) (unknown) (unknown) Medical History (units unknown) (unknown) (unknown) (no date) (unknown) (unknown) Medical decision making narrative: (units unknown) (unknown) (unknown) (no date) (unknown) (unknown) Medication Instructions Recorded Confirmed (units unknown) (unknown) (unknown) (no date) (unknown) (unknown) Medication Instructions Recorded (units unknown) (unknown) (unknown) (no date) (unknown) (unknown) Menometrorrhagia (units unknown) (unknown) (unknown) (no date) (unknown) (unknown) Mode of arrival: Ambulatory (units unknown) (unknown) (unknown) (no date) (unknown) (unknown) [place] # (Auto) (0-900 ) /uL (units unknown) (unknown) (unknown) (no date) (unknown) (unknown) [place] # (Auto) 100 (0-900) /uL (units unknown) (unknown) (unknown) (no date) (unknown) (unknown) [place] % (Auto) (3-14) % (units unknown) (unknown) (unknown) (no date) (unknown) (unknown) [place] % (Auto) 2.7 L (3-14) % (units unknown) (unknown) (unknown) (no date) (unknown) (unknown) Mother Diabetes mellitus (units unknown) (unknown) (unknown) (no date) (unknown) (unknown) Narrative (units unknown) (unknown) (unknown) (no date) (unknown) (unknown) Nausea/vomiting ?> 0 = No nausea and no vomiting (units unknown) (unknown) (unknown) (no date) (unknown) (unknown) Neuro: normal speech and cognition, A+O x3, ambulatory, clear speech (units unknown) (unknown) (unknown) (no date) (unknown) (unknown) Neut # (Auto) (3888-5666) /uL (units unknown) (unknown) (unknown) (no date) (unknown) (unknown) Neut # (Auto) 1500 (2092-8965) /uL (units unknown) (unknown) (unknown) (no date) (unknown) (unknown) Neut % (Auto) (50-75 ) % (units unknown) (unknown) (unknown) (no date) (unknown) (unknown) Neut % (Auto) 45.5 L (50-75) % (units unknown) (unknown) (unknown) (no date) (unknown) (unknown) No Action (units unknown) (unknown) (unknown) (no date) (unknown) (unknown) Obesity (units unknown) (unknown) (unknown) (no date) (unknown) (unknown) Ondansetron HCl (Ondansetron 4 Mg Odt) 4 mg SL NOW ONE (units unknown) (unknown) (unknown) (no date) (unknown) (unknown) Ondansetron HCl (Ondansetron 4 Mg/2 Ml Inj) 4 mg IV Q6HR PRN (units unknown) (unknown) (unknown) (no date) (unknown) (unknown) Ordered: (units unknown) (unknown) (unknown) (no date) (unknown) (unknown) Orders (units unknown) (unknown) (unknown) (no date) (unknown) (unknown) Orientation/clouding of sensorium ?> 0 = Oriented, can do serial additions (units unknown) (unknown) (unknown) (no date) (unknown) (unknown) Overweight (units unknown) (unknown) (unknown) (no date) (unknown) (unknown) Oxygen Delivery Method Room Air 07/12/22 16:10 (units unknown) (unknown) (unknown) (no date) (unknown) (unknown) Oxygen Delivery Method Room Air Room Air (units unknown) (unknown) (unknown) (no date) (unknown) (unknown) PRN Reason: Nausea And Vomiting (units unknown) (unknown) (unknown) (no date) (unknown) (unknown) Paroxysmal sweats ?> 0 = No sweat visible (units unknown) (unknown) (unknown) (no date) (unknown) (unknown) Patient History (units unknown) (unknown) (unknown) (no date) (unknown) (unknown) Patient: Sarah Connors MR#: M (units unknown) (unknown) (unknown) (no date) (unknown) (unknown) Patients with scores >= may require medication for withdrawal. (units unknown) (unknown) (unknown) (no date) (unknown) (unknown) Pertinent lab findings reviewed: CBC is pertinent for mild leukopenia of 3.3, (units unknown) (unknown) (unknown) (no date) (unknown) (unknown) Plt Count (150-400) X103/uL (units unknown) (unknown) (unknown) (no date) (unknown) (unknown) Plt Count 226 (150-400) X103/uL (units unknown) (unknown) (unknown) (no date) (unknown) (unknown) Point of Care Testing (units unknown) (unknown) (unknown) (no date) (unknown) (unknown) Test Results Negative (units unknown) (unknown) (unknown) (no date) (unknown) (unknown) Prescriptions: (units unknown) (unknown) (unknown) (no date) (unknown) (unknown) Previous Rx's (units unknown) (unknown) (unknown) (no date) (unknown) (unknown) Psych: mental status is grossly normal, congruent mood, normal affect, pleasant (units unknown) (unknown) (unknown) (no date) (unknown) (unknown) Pulse Oximetry 99 07/12/22 16:10 (units unknown) (unknown) (unknown) (no date) (unknown) (unknown) Pulse Oximetry 99 99 (units unknown) (unknown) (unknown) (no date) (unknown) (unknown) Pulse Rate 82 07/12/22 16:10 (units unknown) (unknown) (unknown) (no date) (unknown) (unknown) Pulse Rate 82 86 (units unknown) (unknown) (unknown) (no date) (unknown) (unknown) Questions are addressed and there is agreement with the plan and for follow-up. (units unknown) (unknown) (unknown) (no date) (unknown) (unknown) RBC (4.0-5.2) X106/uL (units unknown) (unknown) (unknown) (no date) (unknown) (unknown) RBC 4.44 (4.0-5.2) X106/uL (units unknown) (unknown) (unknown) (no date) (unknown) (unknown) RDW (11.6-14.8) % (units unknown) (unknown) (unknown) (no date) (unknown) (unknown) RDW 17.3 H (11.6-14.8) % (units unknown) (unknown) (unknown) (no date) (unknown) (unknown) RESULT SUMMARY: (units unknown) (unknown) (unknown) (no date) (unknown) (unknown) ROS Unobtainable: Al l systems reviewed + are unremarkable except as noted in HPI (units unknown) (unknown) (unknown) (no date) (unknown) (unknown) Referrals: (units unknown) (unknown) (unknown) (no date) (unknown) (unknown) Related Data (units unknown) (unknown) (unknown) (no date) (unknown) (unknown) Respiratory Rate 14 07/12/22 16:10 (units unknown) (unknown) (unknown) (no date) (unknown) (unknown) Respiratory Rate 14 22 (units unknown) (unknown) (unknown) (no date) (unknown) (unknown) Respiratory: normal effort, able to speak in complete sentences, without (units unknown) (unknown) (unknown) (no date) (unknown) (unknown) Review of Systems (units unknown) (unknown) (unknown) (no date) (unknown) (unknown) Reviewed vitals sign s and nursing notes. (units unknown) (unknown) (unknown) (no date) (unknown) (unknown) S/P myringotomy with insertion of tube (units unknown) (unknown) (unknown) (no date) (unknown) (unknown) SARS-CoV-2 (PCR) (Negative) (units unknown) (unknown) (unknown) (no date) (unknown) (unknown) SARS-CoV-2 (PCR) Negative (Negative) (units unknown) (unknown) (unknown) (no date) (unknown) (unknown) (spontaneous vaginal delivery) (-09/05/18) (units unknown) (unknown) (unknown) (no date) (unknown) (unknown) Salicylate Stat (units unknown) (unknown) (unknown) (no date) (unknown) (unknown) She was given a couple water, a diet order was ordered however they may not (units unknown) (unknown) (unknown) (no date) (unknown) (unknown) Signed By: (units unknown) (unknown) (unknown) (no date) (unknown) (unknown) Skin: brisk capillar y refill, without pallor or erythema (units unknown) (unknown) (unknown) (no date) (unknown) (unknown) Smoker (units unknown) (unknown) (unknown) (no date) (unknown) (unknown) Smoking Status: Former smoker (units unknown) (unknown) (unknown) (no date) (unknown) (unknown) Social History (units unknown) (unknown) (unknown) (no date) (unknown) (unknown) Social consideration s that may affect disposition: none (units unknown) (unknown) (unknown) (no date) (unknown) (unknown) Sodium Chloride (Normal Saline 0.9%) 1,000 mls @ 1,000 mls/hr IV BOLUS ONE (units unknown) (unknown) (unknown) (no date) (unknown) (unknown) Source: patient (units unknown) (unknown) (unknown) (no date) (unknown) (unknown) Stated Complaint: Stress/Depression (units unknown) (unknown) (unknown) (no date) (unknown) (unknown) Stop: 07/12/22 17:33 (units unknown) (unknown) (unknown) (no date) (unknown) (unknown) Stop: 07/12/22 17:45 (units unknown) (unknown) (unknown) (no date) (unknown) (unknown) Stop: 07/12/22 18:28 (units unknown) (unknown) (unknown) (no date) (unknown) (unknown) Stop: 07/12/22 18:31 (units unknown) (unknown) (unknown) (no date) (unknown) (unknown) Stop: 07/12/22 19:25 (units unknown) (unknown) (unknown) (no date) (unknown) (unknown) Substance Use Type: does not use (units unknown) (unknown) (unknown) (no date) (unknown) (unknown) Surgical History (units unknown) (unknown) (unknown) (no date) (unknown) (unknown) Tactile disturbances ?> 1 = Very mild itching, pin and needles, burning, or (units unknown) (unknown) (unknown) (no date) (unknown) (unknown) Temperature 97.2 F L 07/12/22 16:10 (units unknown) (unknown) (unknown) (no date) (unknown) (unknown) Temperature 97.2 F L (units unknown) (unknown) (unknown) (no date) (unknown) (unknown) Thiamine HCl (Thiamine 100 Mg Tablet) 100 mg PO NOW ONE (units unknown) (unknown) (unknown) (no date) (unknown) (unknown) Thiamine HCl 200 mg/ Sodium (Chloride) 102 mls @ 408 mls/hr IV NOW ONE (units unknown) (unknown) (unknown) (no date) (unknown) (unknown) This is a 31-year-ol d female with history of alcohol abuse and appears to have (units unknown) (unknown) (unknown) (no date) (unknown) (unknown) Thyroid Stimulating Hormone Stat (units unknown) (unknown) (unknown) (no date) (unknown) (unknown) Time Seen by Provider: 07/12/22 17:05 (units unknown) (unknown) (unknown) (no date) (unknown) (unknown) Tremor ?> 1 = Not visible, but can be felt fingertip to fingertip (units unknown) (unknown) (unknown) (no date) (unknown) (unknown) U Benzodiazepines Scrn (Negative) (units unknown) (unknown) (unknown) (no date) (unknown) (unknown) U Benzodiazepines Scrn Negative (Negative) (units unknown) (unknown) (unknown) (no date) (unknown) (unknown) U Marijuana (THC) Screen (Negative) (units unknown) (unknown) (unknown) (no date) (unknown) (unknown) U Marijuana (THC) Screen Negative (Negative) (units unknown) (unknown) (unknown) (no date) (unknown) (unknown) U Methamphetamines Scrn (Negative) (units unknown) (unknown) (unknown) (no date) (unknown) (unknown) U Methamphetamines Scrn Negative (Negative) (units unknown) (unknown) (unknown) (no date) (unknown) (unknown) U Opiates 300ng/mL cut (Negative) (units unknown) (unknown) (unknown) (no date) (unknown) (unknown) U Opiates 300ng/mL cut Negative (Negative) (units unknown) (unknown) (unknown) (no date) (unknown) (unknown) U Tricyclic Antidepress (Negative) (units unknown) (unknown) (unknown) (no date) (unknown) (unknown) U Tricyclic Antidepress Negative (Negative) (units unknown) (unknown) (unknown) (no date) (unknown) (unknown) Ur Amphetamines Screen (Negative) (units unknown) (unknown) (unknown) (no date) (unknown) (unknown) Ur Amphetamines Screen Negative (Negative) (units unknown) (unknown) (unknown) (no date) (unknown) (unknown) Ur Barbiturates Screen (Negative) (units unknown) (unknown) (unknown) (no date) (unknown) (unknown) Ur Barbiturates Screen Negative (Negative) (units unknown) (unknown) (unknown) (no date) (unknown) (unknown) Ur Culture Indicated ? Specimen cultured (units unknown) (unknown) (unknown) (no date) (unknown) (unknown) Ur Culture Indicated? (units unknown) (unknown) (unknown) (no date) (unknown) (unknown) Ur MDMA Scrn (Ecstasy) (Negative) (units unknown) (unknown) (unknown) (no date) (unknown) (unknown) Ur MDMA Scrn (Ecstasy) Negative (Negative) (units unknown) (unknown) (unknown) (no date) (unknown) (unknown) Ur Oxycodone Screen (Negative) (units unknown) (unknown) (unknown) (no date) (unknown) (unknown) Ur Oxycodone Screen Negative (Negative) (units unknown) (unknown) (unknown) (no date) (unknown) (unknown) Ur Phencyclidine Scr n (Negative) (units unknown) (unknown) (unknown) (no date) (unknown) (unknown) Ur Phencyclidine Scr n Negative (Negative) (units unknown) (unknown) (unknown) (no date) (unknown) (unknown) Ur Squamous Epith Cells (0-5/HPF) (units unknown) (unknown) (unknown) (no date) (unknown) (unknown) Ur Squamous Epith Cells 1-5 /hpf (0-5/HPF) (units unknown) (unknown) (unknown) (no date) (unknown) (unknown) Urine Bacteria (None) (units unknown) (unknown) (unknown) (no date) (unknown) (unknown) Urine Bacteria Many (>30) H (None) (units unknown) (unknown) (unknown) (no date) (unknown) (unknown) Urine Cocaine Screen (Negative) (units unknown) (unknown) (unknown) (no date) (unknown) (unknown) Urine Cocaine Screen Negative (Negative) (units unknown) (unknown) (unknown) (no date) (unknown) (unknown) Urine Culture Stat (units unknown) (unknown) (unknown) (no date) (unknown) (unknown) Urine Dip (units unknown) (unknown) (unknown) (no date) (unknown) (unknown) Urine Drug Screen, Rapid Stat (units unknown) (unknown) (unknown) (no date) (unknown) (unknown) Urine Methadone Screen (Negative) (units unknown) (unknown) (unknown) (no date) (unknown) (unknown) Urine Methadone Screen Negative (Negative) (units unknown) (unknown) (unknown) (no date) (unknown) (unknown) Urine Microscopic Stat (units unknown) (unknown) (unknown) (no date) (unknown) (unknown) Urine RBC (0-5/HPF) (units unknown) (unknown) (unknown) (no date) (unknown) (unknown) Urine RBC 1-5/hpf (0-5/HPF) (units unknown) (unknown) (unknown) (no date) (unknown) (unknown) Urine Specific [place] 1.015 (units unknown) (unknown) (unknown) (no date) (unknown) (unknown) Urine WBC (0-5/HPF) (units unknown) (unknown) (unknown) (no date) (unknown) (unknown) Urine WBC 1-5/hpf (0-5/HPF) (units unknown) (unknown) (unknown) (no date) (unknown) (unknown) Urine microscopy wit h many bacteria, pending for culture, will treat for acute (units unknown) (unknown) (unknown) (no date) (unknown) (unknown) Visual disturbances ?> 1 = Very mild sensitivity (units unknown) (unknown) (unknown) (no date) (unknown) (unknown) Vital Signs - 8 hr (units unknown) (unknown) (unknown) (no date) (unknown) (unknown) Vital Signs (units unknown) (unknown) (unknown) (no date) (unknown) (unknown) Vital signs: (units unknown) (unknown) (unknown) (no date) (unknown) (unknown) WBC (4.5-11.0) X103/uL (units unknown) (unknown) (unknown) (no date) (unknown) (unknown) WBC 3.3 L (4.5-11.0) X103/uL (units unknown) (unknown) (unknown) (no date) (unknown) (unknown) [Embedded Image Not Available] (units unknown) (unknown) (unknown) (no date) (unknown) (unknown) [METOCLOPRAMIDE] (units unknown) (unknown) (unknown) (no date) (unknown) (unknown) acetaminophen 325 mg tablet 325 mg PO Q6H PRN pain #20 tabs 02/05/20 (units unknown) (unknown) (unknown) (no date) (unknown) (unknown) acetaminophen [Tylenol] 325 mg tablet (units unknown) (unknown) (unknown) (no date) (unknown) (unknown) alcohol in 300s, she was last here in the emergency department in May of (units unknown) (unknown) (unknown) (no date) (unknown) (unknown) alcohol intake frequency: 3 or more drinks per day (units unknown) (unknown) (unknown) (no date) (unknown) (unknown) alcohol intake: former (units unknown) (unknown) (unknown) (no date) (unknown) (unknown) and below (units unknown) (unknown) (unknown) (no date) (unknown) (unknown) and cooperative (units unknown) (unknown) (unknown) (no date) (unknown) (unknown) arrhythmia, or acute ischemic changes. (units unknown) (unknown) (unknown) (no date) (unknown) (unknown) at extension and states that she feels symptoms of alcohol withdrawal. Denies (units unknown) (unknown) (unknown) (no date) (unknown) (unknown) bpm with rightward axis and normal intervals. No STEMI, ST segment changes, (units unknown) (unknown) (unknown) (no date) (unknown) (unknown) current occupational exposures/hazards: Yes (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 with Pandemic ) (units unknown) (unknown) (unknown) (no date) (unknown) (unknown) cystitis (units unknown) (unknown) (unknown) (no date) (unknown) (unknown) cystitis, she is p.o . tolerant, still pending lab work (units unknown) (unknown) (unknown) (no date) (unknown) (unknown) deliver since it is after 17:00 and the diet order was ordered at 17:30. Samira (units unknown) (unknown) (unknown) (no date) (unknown) (unknown) detox as well. (units unknown) (unknown) (unknown) (no date) (unknown) (unknown) diarrhea or current stool changes. (units unknown) (unknown) (unknown) (no date) (unknown) (unknown) diphenhydramine HCl 25 mg capsule 25 mg PO BEDTIME PRN insomnia #20 02/05/20 (units unknown) (unknown) (unknown) (no date) (unknown) (unknown) diphenhydramine HCl [Benadryl] 25 mg capsule (units unknown) (unknown) (unknown) (no date) (unknown) (unknown) docusate sodium 100 mg capsule 100 mg PO BID #30 caps 02/05/20 (units unknown) (unknown) (unknown) (no date) (unknown) (unknown) docusate sodium [Colace] 100 mg capsule (units unknown) (unknown) (unknown) (no date) (unknown) (unknown) draw her labs (units unknown) (unknown) (unknown) (no date) (unknown) (unknown) education level: college 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[employer] (units unknown) (unknown) (unknown) (no date) (unknown) (unknown) fluid, EtOH, and CIWA, ordered 2 mg of IV lorazepam for patient's symptoms, (units unknown) (unknown) (unknown) (no date) (unknown) (unknown) for alcohol related complaints through 2019, and she presented to the [facility] (units unknown) (unknown) (unknown) (no date) (unknown) (unknown) from social work is aware and pending her lab work to arrange for inpatient (units unknown) (unknown) (unknown) (no date) (unknown) (unknown) her urine microscopy came back positive for many bacteria, will treat for acute (units unknown) (unknown) (unknown) (no date) (unknown) (unknown) household members: spouse and children (units unknown) (unknown) (unknown) (no date) (unknown) (unknown) hydrocodone [HYDROCODONE] AdvReac Unknown VOMITING Verified 07/12/22 16:18 (units unknown) (unknown) (unknown) (no date) (unknown) (unknown) ibuprofen 600 mg Tablet (units unknown) (unknown) (unknown) (no date) (unknown) (unknown) ibuprofen 600 mg tablet 600 mg PO Q6HR PRN Pain, Mild 07/04/20 (units unknown) (unknown) (unknown) (no date) (unknown) (unknown) injuries, denies chance of , denies any other ingestions, is pleasant, (units unknown) (unknown) (unknown) (no date) (unknown) (unknown) intoxicated, pleasant, interactive and comfortable although active and fidgeting (units unknown) (unknown) (unknown) (no date) (unknown) (unknown) limited history currently due to intoxication. She states that she is recently (units unknown) (unknown) (unknown) (no date) (unknown) (unknown) lorazepam at 2 mg fo r this. (units unknown) (unknown) (unknown) (no date) (unknown) (unknown) marital status: (units unknown) (unknown) (unknown) (no date) (unknown) (unknown) metoclopramide Allergy Mild RASH/HIVES Verified 07/12/22 16:18 (units unknown) (unknown) (unknown) (no date) (unknown) (unknown) mild anemia but improved from her prior with H+H of 11.5 and 35.3, no evidence (units unknown) (unknown) (unknown) (no date) (unknown) (unknown) nausea vomiting or abdominal pain at this time. Denies any vomiting home or (units unknown) (unknown) (unknown) (no date) (unknown) (unknown) number of children: 1 (units unknown) (unknown) (unknown) (no date) (unknown) (unknown) numbness (units unknown) (unknown) (unknown) (no date) (unknown) (unknown) occupational status: employed (units unknown) (unknown) (unknown) (no date) (unknown) (unknown) of bleeding anywhere , CMP (units unknown) (unknown) (unknown) (no date) (unknown) (unknown) ondansetron 4 mg disintegrating 4 mg PO Q6H PRN nausea and 06/12/22 (units unknown) (unknown) (unknown) (no date) (unknown) (unknown) ondansetron 4 mg disintegrating 4 mg PO Q8H PRN nausea and 01/01/20 (units unknown) (unknown) (unknown) (no date) (unknown) (unknown) ondansetron 4 mg disintegrating 4 mg PO Q8H PRN nausea and 02/05/20 (units unknown) (unknown) (unknown) (no date) (unknown) (unknown) ondansetron 4 mg tablet,disintegrating (units unknown) (unknown) (unknown) (no date) (unknown) (unknown) ordered p.o. Ativan for her symptoms and ask our into call lab to come up and (units unknown) (unknown) (unknown) (no date) (unknown) (unknown) vits,otis,min- i thang-folic 1 tab PO DAILY 12/30/19 07/03/20 (units unknown) (unknown) (unknown) (no date) (unknown) (unknown) madelyn.vits,otis,min- i thang-folic Tablet (units unknown) (unknown) (unknown) (no date) (unknown) (unknown) relapsed due to a divorce with her . She used to be a frequent visitor (units unknown) (unknown) (unknown) (no date) (unknown) (unknown) second hand exposure : No (growing up as a child - not currently) (units unknown) (unknown) (unknown) (no date) (unknown) (unknown) seeking help with he r intoxication and wishes to go to detox. (units unknown) (unknown) (unknown) (no date) (unknown) (unknown) significant tremor o r tongue fasciculation, she has a mild tremor with her arms (units unknown) (unknown) (unknown) (no date) (unknown) (unknown) social work and orders are pending (units unknown) (unknown) (unknown) (no date) (unknown) (unknown) special renee needs: No (units unknown) (unknown) (unknown) (no date) (unknown) (unknown) substance abuse, alcohol intoxication, psychosis, mood disorder, depression (units unknown) (unknown) (unknown) (no date) (unknown) (unknown) substance use type: does not use (units unknown) (unknown) (unknown) (no date) (unknown) (unknown) tablet vomiting #14 tabs (units unknown) (unknown) (unknown) (no date) (unknown) (unknown) tablet vomiting #20 tabs (units unknown) (unknown) (unknown) (no date) (unknown) (unknown) tablet vomiting #30 tabs (units unknown) (unknown) (unknown) (no date) (unknown) (unknown) tenderness or exquisite tenderness with exam. (units unknown) (unknown) (unknown) (no date) (unknown) (unknown) that she drinks vodk a and admits to drinking heavily today, states that she took (units unknown) (unknown) (unknown) (no date) (unknown) (unknown) the bottle upside down and started checking from it. She denies any recent (units unknown) (unknown) (unknown) (no date) (unknown) (unknown) tramadol 50 mg table t 50 mg PO Q6H PRN pain #10 tabs 06/12/22 (units unknown) (unknown) (unknown) (no date) (unknown) (unknown) tramadol 50 mg tablet (units unknown) (unknown) (unknown) (no date) (unknown) (unknown) tremors, no tachycardia, her CIWA is currently 10, ordered another p.o. dose of (units unknown) (unknown) (unknown) (no date) (unknown) (unknown) well as prior record s if available. (units unknown) (unknown) (unknown) (no date) (unknown) (unknown) wheezing, stridor, o r abnormal breath sounds. No retractions or tachypnea. (units unknown) (unknown) Result panel [id number] (unknown) (no date) (unknown) (unknown) > 60 ml/min (unknown) (unknown) (no date) (unknown) (unknown) > 60 ml/min (unknown) (unknown) (no date) (unknown) (unknown) < 1.0 mg/dl (unknown) (unknown) (no date) (unknown) (unknown) < 1.0 mg/dl (unknown) (unknown) (no date) (unknown) (unknown) < 10 ug/ml (unknown) (unknown) (no date) (unknown) (unknown) < 10 ug/ml (unknown) (unknown) (no date) (unknown) (unknown) 0.4 mg/dl (unknown) (unknown) (no date) (unknown) (unknown) 0.82 mg/dl (unknown) (unknown) (no date) (unknown) (unknown) 1.4 (units unknown) (unknown) (unknown) (no date) (unknown) (unknown) 104 mmol/l (unknown) (unknown) (no date) (unknown) (unknown) 11.0 (units unknown) (unknown) (unknown) (no date) (unknown) (unknown) 111 mg/dl (unknown) (unknown) (no date) (unknown) (unknown) 111 mg/dl (unknown) (unknown) (no date) (unknown) (unknown) 140 mmol/l (unknown) (unknown) (no date) (unknown) (unknown) 21 iu/l (unknown) (unknown) (no date) (unknown) (unknown) 23 mmol/l (unknown) (unknown) (no date) (unknown) (unknown) 3.0 g/dl (unknown) (unknown) (no date) (unknown) (unknown) 3.9 mmol/l (unknown) (unknown) (no date) (unknown) (unknown) 338 mg/dl (unknown) (unknown) (no date) (unknown) (unknown) 338 mg/dl (unknown) (unknown) (no date) (unknown) (unknown) 4.3 g/dl (unknown) (unknown) (no date) (unknown) (unknown) 67 iu/l (unknown) (unknown) (no date) (unknown) (unknown) 7.3 g/dl (unknown) (unknown) (no date) (unknown) (unknown) 8.0 mg/dl (unknown) (unknown) (no date) (unknown) (unknown) 9 mg/dl (unknown) (unknown) (no date) (unknown) (unknown) 98 u/l (unknown) Result panel [id number] (unknown) (no date) (unknown) (unknown) (no value) (units unknown) (unknown) (unknown) (no date) (unknown) (unknown) (1-3) #30 tabs (units unknown) (unknown) (unknown) (no date) (unknown) (unknown) (Benadryl) caps (units unknown) (unknown) (unknown) (no date) (unknown) (unknown) (Colace) (units unknown) (unknown) (unknown) (no date) (unknown) (unknown) (Tylenol) (units unknown) (unknown) (unknown) (no date) (unknown) (unknown) [id number] (units unknown) (unknown) (unknown) (no date) (unknown) (unknown) 07/12/22 07/12/22 07/12/22 Range/Units (units unknown) (unknown) (unknown) (no date) (unknown) (unknown) 07/12/22 07/12/22 Range/Units (units unknown) (unknown) (unknown) (no date) (unknown) (unknown) 07/12/22 16:28 (units unknown) (unknown) (unknown) (no date) (unknown) (unknown) 07/12/22 16:32 (units unknown) (unknown) (unknown) (no date) (unknown) (unknown) 07/12/22 18:28 (units unknown) (unknown) (unknown) (no date) (unknown) (unknown) 07/12/22 19:15 (units unknown) (unknown) (unknown) (no date) (unknown) (unknown) 07/12/22 (units unknown) (unknown) (unknown) (no date) (unknown) (unknown) 1 tab PO DAILY (units unknown) (unknown) (unknown) (no date) (unknown) (unknown) 100 mg PO BID Qty: 3 0 0RF (units unknown) (unknown) (unknown) (no date) (unknown) (unknown) 16:10 07/12/22 (units unknown) (unknown) (unknown) (no date) (unknown) (unknown) 16:32 16:32 16:32 (units unknown) (unknown) (unknown) (no date) (unknown) (unknown) 183 patient still does not have an IV, has not received any IV fluid her (units unknown) (unknown) (unknown) (no date) (unknown) (unknown) 18:53 (units unknown) (unknown) (unknown) (no date) (unknown) (unknown) 1900 still no IV, patient is p.o. challenging, she received her p.o. lorazepam, (units unknown) (unknown) (unknown) (no date) (unknown) (unknown) 1929, patient now feels depressed, she is lying in bed, feeling bad, has (units unknown) (unknown) (unknown) (no date) (unknown) (unknown) 19:15 19:15 (units unknown) (unknown) (unknown) (no date) (unknown) (unknown) 2022 with similar symptoms. She comes in complaining of needing help, states (units unknown) (unknown) (unknown) (no date) (unknown) (unknown) 25 mg PO BEDTIME PRN (Reason: insomnia) Qty: 20 0RF (units unknown) (unknown) (unknown) (no date) (unknown) (unknown) 325 mg PO Q6H PRN (Reason: pain) Qty: 20 0RF (units unknown) (unknown) (unknown) (no date) (unknown) (unknown) 4 mg PO Q6H PRN (Reason: nausea and vomiting) Qty: 14 0RF (units unknown) (unknown) (unknown) (no date) (unknown) (unknown) 4 mg PO Q8H PRN (Reason: nausea and vomiting) Qty: 20 0RF (units unknown) (unknown) (unknown) (no date) (unknown) (unknown) 4 mg PO Q8H PRN (Reason: nausea and vomiting) Qty: 30 0RF (units unknown) (unknown) (unknown) (no date) (unknown) (unknown) 50 mg PO Q6H PRN (Reason: pain) Qty: 10 0RF (units unknown) (unknown) (unknown) (no date) (unknown) (unknown) 600 mg PO Q6HR PRN (Reason: Pain, Mild (1-3)) Qty: 30 0RF (units unknown) (unknown) (unknown) (no date) (unknown) (unknown) 9 points (units unknown) (unknown) (unknown) (no date) (unknown) (unknown) ALT (<35) IU/L (units unknown) (unknown) (unknown) (no date) (unknown) (unknown) ALT 21 (<35) IU/L (units unknown) (unknown) (unknown) (no date) (unknown) (unknown) AST (14-36) IU/L (units unknown) (unknown) (unknown) (no date) (unknown) (unknown) AST 67 H (14-36) IU/L (units unknown) (unknown) (unknown) (no date) (unknown) (unknown) Acetaminophen < 10 (10-30) ug/mL (units unknown) (unknown) (unknown) (no date) (unknown) (unknown) Acetaminophen (10-30 ) ug/mL (units unknown) (unknown) (unknown) (no date) (unknown) (unknown) Acetaminophen Stat (units unknown) (unknown) (unknown) (no date) (unknown) (unknown) Acute cystitis (units unknown) (unknown) (unknown) (no date) (unknown) (unknown) Age/Sex: 31 / F (units unknown) (unknown) (unknown) (no date) (unknown) (unknown) Agitation ?> 2 = (More severe symptoms) (units unknown) (unknown) (unknown) (no date) (unknown) (unknown) Albumin (3.5-5.0) g/dL (units unknown) (unknown) (unknown) (no date) (unknown) (unknown) Albumin 4.3 (3.5-5.0 ) g/dL (units unknown) (unknown) (unknown) (no date) (unknown) (unknown) Albumin/Globulin Ratio (1.0-2.8) (units unknown) (unknown) (unknown) (no date) (unknown) (unknown) Albumin/Globulin Ratio 1.4 (1.0-2.8) (units unknown) (unknown) (unknown) (no date) (unknown) (unknown) Alcohol use disorder (units unknown) (unknown) (unknown) (no date) (unknown) (unknown) Alcoholism (units unknown) (unknown) (unknown) (no date) (unknown) (unknown) Alkaline Phosphatase (38-126) U/L (units unknown) (unknown) (unknown) (no date) (unknown) (unknown) Alkaline Phosphatase 98 (38-126) U/L (units unknown) (unknown) (unknown) (no date) (unknown) (unknown) Allergies (units unknown) (unknown) (unknown) (no date) (unknown) (unknown) Allergy/AdvReac Type Severity Reaction Status Date / Time (units unknown) (unknown) (unknown) (no date) (unknown) (unknown) Anemia (-2018) (units unknown) (unknown) (unknown) (no date) (unknown) (unknown) Anxiety ?> 2 = (More severe symptoms) (units unknown) (unknown) (unknown) (no date) (unknown) (unknown) Auditory disturbance s ?> 1 = Very mild harshness or ability to frighten (units unknown) (unknown) (unknown) (no date) (unknown) (unknown) BUN (7-17) mg/dL (units unknown) (unknown) (unknown) (no date) (unknown) (unknown) BUN 9 (7-17) mg/dL (units unknown) (unknown) (unknown) (no date) (unknown) (unknown) BUN/Creatinine Ratio (6-22) (units unknown) (unknown) (unknown) (no date) (unknown) (unknown) BUN/Creatinine Ratio 11.0 (6-22) (units unknown) (unknown) (unknown) (no date) (unknown) (unknown) Baso # (Auto) (0-100 ) /uL (units unknown) (unknown) (unknown) (no date) (unknown) (unknown) Baso # (Auto) 0 (0-100) /uL (units unknown) (unknown) (unknown) (no date) (unknown) (unknown) Baso % (Auto) (0-2) % (units unknown) (unknown) (unknown) (no date) (unknown) (unknown) Baso % (Auto) 0.9 (0-2) % (units unknown) (unknown) (unknown) (no date) (unknown) (unknown) Bedside Urine Bilirubin - Negative (units unknown) (unknown) (unknown) (no date) (unknown) (unknown) Bedside Urine Glucos e Negative (units unknown) (unknown) (unknown) (no date) (unknown) (unknown) Bedside Urine Ketone - Negative (units unknown) (unknown) (unknown) (no date) (unknown) (unknown) Bedside Urine Leukocytes - Negative (units unknown) (unknown) (unknown) (no date) (unknown) (unknown) Bedside Urine Nitrit e + Positive (units unknown) (unknown) (unknown) (no date) (unknown) (unknown) Bedside Urine Occult Blood - Negative (units unknown) (unknown) (unknown) (no date) (unknown) (unknown) Bedside Urine Protei n - Negative (units unknown) (unknown) (unknown) (no date) (unknown) (unknown) Bedside Urine Urobilinogen - Negative (units unknown) (unknown) (unknown) (no date) (unknown) (unknown) Bedside Urine pH 6.0 (units unknown) (unknown) (unknown) (no date) (unknown) (unknown) Blood Pressure 112/6 2 07/12/22 16:10 (units unknown) (unknown) (unknown) (no date) (unknown) (unknown) Blood Pressure 112/62 (units unknown) (unknown) (unknown) (no date) (unknown) (unknown) Blood Pressure [Left Arm] 100/59 L (units unknown) (unknown) (unknown) (no date) (unknown) (unknown) CIWA is now worse an d she has tremors, anxiety is worsening and agitation, (units unknown) (unknown) (unknown) (no date) (unknown) (unknown) CIWA-Ar for Alcohol Withdrawal from [email or web address] on 07/12/2022 (units unknown) (unknown) (unknown) (no date) (unknown) (unknown) COVID19 -Nasal RAPID/Pre-Proc Stat (units unknown) (unknown) (unknown) (no date) (unknown) (unknown) Calcium (8.4-10.2) mg/dL (units unknown) (unknown) (unknown) (no date) (unknown) (unknown) Calcium 8.0 L (8.4-10.2) mg/dL (units unknown) (unknown) (unknown) (no date) (unknown) (unknown) Carbon Dioxide (22-32) mmol/L (units unknown) (unknown) (unknown) (no date) (unknown) (unknown) Carbon Dioxide 23 (22-32) mmol/L (units unknown) (unknown) (unknown) (no date) (unknown) (unknown) Cardiovascular: regular rate and rhythm, no peripheral edema, warm extremities (units unknown) (unknown) (unknown) (no date) (unknown) (unknown) Cephalexin HCl (Cephalexin 250 Mg Capsule) 500 mg PO Q6H SANDY (units unknown) (unknown) (unknown) (no date) (unknown) (unknown) Chief Complaint: Alcohol intoxication, seeking detox (units unknown) (unknown) (unknown) (no date) (unknown) (unknown) Chief Complaint: Toxicology Problem (units unknown) (unknown) (unknown) (no date) (unknown) (unknown) Chloride (98-107) mmol/L (units unknown) (unknown) (unknown) (no date) (unknown) (unknown) Chloride 104 (98-107 ) mmol/L (units unknown) (unknown) (unknown) (no date) (unknown) (unknown) Clinical Impression: (units unknown) (unknown) (unknown) (no date) (unknown) (unknown) Clinical decision rules or scores evaluated: CIWA of 9 at 1753 (units unknown) (unknown) (unknown) (no date) (unknown) (unknown) Complete Blood Count AUTO DIFF Stat (units unknown) (unknown) (unknown) (no date) (unknown) (unknown) Comprehensive Metabolic Panel Stat (units unknown) (unknown) (unknown) (no date) (unknown) (unknown) 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 (units unknown) (unknown) (unknown) (no date) (unknown) (unknown) Course of care: Patient is a difficult IV stick, ordered IV with lab work, (units unknown) (unknown) (unknown) (no date) (unknown) (unknown) Course (units unknown) (unknown) (unknown) (no date) (unknown) (unknown) Creatinine (0.52-1.04) mg/dL (units unknown) (unknown) (unknown) (no date) (unknown) (unknown) Creatinine 0.82 (0.52-1.04) mg/dL (units unknown) (unknown) (unknown) (no date) (unknown) (unknown) : 1990 Acct:[id number] (units unknown) (unknown) (unknown) (no date) (unknown) (unknown) Date of Service: 07/12/22 (units unknown) (unknown) (unknown) (no date) (unknown) (unknown) Departure (units unknown) (unknown) (unknown) (no date) (unknown) (unknown) Differential diagnoses include but are not limited to: Alcohol withdrawal, (units unknown) (unknown) (unknown) (no date) (unknown) (unknown) Discharge Plan (units unknown) (unknown) (unknown) (no date) (unknown) (unknown) Discontinued Medications (units unknown) (unknown) (unknown) (no date) (unknown) (unknown) Documented By: KB (units unknown) (unknown) (unknown) (no date) (unknown) (unknown) Documented By: OW (units unknown) (unknown) (unknown) (no date) (unknown) (unknown) ECG Data (units unknown) (unknown) (unknown) (no date) (unknown) (unknown) ED Orders (units unknown) (unknown) (unknown) (no date) (unknown) (unknown) EKG independently reviewed by myself at 1830 reveals normal sinus rhythm at 72 (units unknown) (unknown) (unknown) (no date) (unknown) (unknown) EKG-12 Lead Stat (units unknown) (unknown) (unknown) (no date) (unknown) (unknown) ER Physician: Juliet [place] (units unknown) (unknown) (unknown) (no date) (unknown) (unknown) Emergency Report (units unknown) (unknown) (unknown) (no date) (unknown) (unknown) Eos # (Auto) (0-450) /uL (units unknown) (unknown) (unknown) (no date) (unknown) (unknown) Eos # (Auto) 0 (0-450) /uL (units unknown) (unknown) (unknown) (no date) (unknown) (unknown) Eos % (Auto) (2-4) % (units unknown) (unknown) (unknown) (no date) (unknown) (unknown) Eos % (Auto) 0.3 L (2-4) % (units unknown) (unknown) (unknown) (no date) (unknown) (unknown) Esterase (units unknown) (unknown) (unknown) (no date) (unknown) (unknown) Estimated GFR > 60 (>60) mL/min (units unknown) (unknown) (unknown) (no date) (unknown) (unknown) Estimated GFR (>60) mL/min (units unknown) (unknown) (unknown) (no date) (unknown) (unknown) Ethanol (ETOH) Stat (units unknown) (unknown) (unknown) (no date) (unknown) (unknown) Ethyl Alcohol ( - 10 ) mg/dL (units unknown) (unknown) (unknown) (no date) (unknown) (unknown) Ethyl Alcohol 338 H ( - 10) mg/dL (units unknown) (unknown) (unknown) (no date) (unknown) (unknown) Exam Narrative: (units unknown) (unknown) (unknown) (no date) (unknown) (unknown) Exam (units unknown) (unknown) (unknown) (no date) (unknown) (unknown) Family History (units unknown) (unknown) (unknown) (no date) (unknown) (unknown) Family/Other Alcoholism (units unknown) (unknown) (unknown) (no date) (unknown) (unknown) Family/Other Diabete s mellitus (units unknown) (unknown) (unknown) (no date) (unknown) (unknown) Father Alcoholism (units unknown) (unknown) (unknown) (no date) (unknown) (unknown) Tonia Schneider MD [Primary Care Provider] (units unknown) (unknown) (unknown) (no date) (unknown) (unknown) Folic Acid (Folic Acid 1 Mg Tablet) 1 mg PO DAILY SANDY (units unknown) (unknown) (unknown) (no date) (unknown) (unknown) Free T4, Direct Thyroxine Stat (units unknown) (unknown) (unknown) (no date) (unknown) (unknown) GI: abdomen soft, nontender to palpation, nondistended, without masses, rebound (units unknown) (unknown) (unknown) (no date) (unknown) (unknown) General (units unknown) (unknown) (unknown) (no date) (unknown) (unknown) General: cooperative , comfortable, in no acute distress, well groomed, appears (units unknown) (unknown) (unknown) (no date) (unknown) (unknown) Globulin (1.7-4.1) g/dL (units unknown) (unknown) (unknown) (no date) (unknown) (unknown) Globulin 3.0 (1.7-4.1) g/dL (units unknown) (unknown) (unknown) (no date) (unknown) (unknown) Glucose (70-100) mg/dL (units unknown) (unknown) (unknown) (no date) (unknown) (unknown) Glucose 111 H (70-100) mg/dL (units unknown) (unknown) (unknown) (no date) (unknown) (unknown) Grandfather Smoker (units unknown) (unknown) (unknown) (no date) (unknown) (unknown) Grandfather Unknown whether patient has any health problems (units unknown) (unknown) (unknown) (no date) (unknown) (unknown) Grandmother Diabetes mellitus (units unknown) (unknown) (unknown) (no date) (unknown) (unknown) Grandmother Hypoglycemia (units unknown) (unknown) (unknown) (no date) (unknown) (unknown) H/O dilation and curettage (-12/14/16) (units unknown) (unknown) (unknown) (no date) (unknown) (unknown) H/O wisdom tooth extraction () (units unknown) (unknown) (unknown) (no date) (unknown) (unknown) HEENT: symmetrical facial expressions, dry mucous membranes (units unknown) (unknown) (unknown) (no date) (unknown) (unknown) HPI - Alcohol (units unknown) (unknown) (unknown) (no date) (unknown) (unknown) HPI narrative: (units unknown) (unknown) (unknown) (no date) (unknown) (unknown) Hct (36-46) % (units unknown) (unknown) (unknown) (no date) (unknown) (unknown) Hct 35.3 L (36-46) % (units unknown) (unknown) (unknown) (no date) (unknown) (unknown) Headache/fullness in head ?> 1 = Very mild (units unknown) (unknown) (unknown) (no date) (unknown) (unknown) Hematuria presence: without hematuria Qualified Code(s): N30.00 - Acute (units unknown) (unknown) (unknown) (no date) (unknown) (unknown) Hgb (12.0-16.0) g/dL (units unknown) (unknown) (unknown) (no date) (unknown) (unknown) Hgb 11.5 L (12.0-16.0) g/dL (units unknown) (unknown) (unknown) (no date) (unknown) (unknown) History of Present Illness (units unknown) (unknown) (unknown) (no date) (unknown) (unknown) Home Medications (units unknown) (unknown) (unknown) (no date) (unknown) (unknown) I have independently reviewed the patient's vital signs and nursing notes as (units unknown) (unknown) (unknown) (no date) (unknown) (unknown) INPUTS: (units unknown) (unknown) (unknown) (no date) (unknown) (unknown) Independent historian: Patient (units unknown) (unknown) (unknown) (no date) (unknown) (unknown) Initial Vital Signs (units unknown) (unknown) (unknown) (no date) (unknown) (unknown) Initial Vital Signs: (units unknown) (unknown) (unknown) (no date) (unknown) (unknown) Insomnia (units unknown) (unknown) (unknown) (no date) (unknown) (unknown) Interpretation: (units unknown) (unknown) (unknown) (no date) (unknown) (unknown) [address] [id number] (units unknown) (unknown) (unknown) (no date) (unknown) (unknown) Lab Data (units unknown) (unknown) (unknown) (no date) (unknown) (unknown) Lab Results (units unknown) (unknown) (unknown) (no date) (unknown) (unknown) Labs: (units unknown) (unknown) (unknown) (no date) (unknown) (unknown) Last Admin: 07/12/22 18:39 Dose: 4 mg (units unknown) (unknown) (unknown) (no date) (unknown) (unknown) Last Admin: 07/12/22 18:40 Dose: 1 mg (units unknown) (unknown) (unknown) (no date) (unknown) (unknown) Last Admin: 07/12/22 18:56 Dose: Not Given (units unknown) (unknown) (unknown) (no date) (unknown) (unknown) Lorazepam (Lorazepam 0.5 Mg Tablet) 1 mg PO NOW ONE (units unknown) (unknown) (unknown) (no date) (unknown) (unknown) Lorazepam (Lorazepam 0.5 Mg Tablet) 2 mg PO NOW ONE (units unknown) (unknown) (unknown) (no date) (unknown) (unknown) Lorazepam (Lorazepam 2 Mg/Ml Inj) 2 mg IV NOW ONE (units unknown) (unknown) (unknown) (no date) (unknown) (unknown) Lymph # (Auto) (4573-3484) /uL (units unknown) (unknown) (unknown) (no date) (unknown) (unknown) Lymph # (Auto) 1700 (4759-4330) /uL (units unknown) (unknown) (unknown) (no date) (unknown) (unknown) Lymph % (Auto) (25-40) % (units unknown) (unknown) (unknown) (no date) (unknown) (unknown) Lymph % (Auto) 50.6 H (25-40) % (units unknown) (unknown) (unknown) (no date) (unknown) (unknown) MCH (26-34) PG (units unknown) (unknown) (unknown) (no date) (unknown) (unknown) MCH 26.0 (26-34) PG (units unknown) (unknown) (unknown) (no date) (unknown) (unknown) MCHC (30-36) % (units unknown) (unknown) (unknown) (no date) (unknown) (unknown) MCHC 32.7 (30-36) % (units unknown) (unknown) (unknown) (no date) (unknown) (unknown) MCV (80-100) fL (units unknown) (unknown) (unknown) (no date) (unknown) (unknown) MCV 79.5 L (80-100) fL (units unknown) (unknown) (unknown) (no date) (unknown) (unknown) MDM - Alcohol (units unknown) (unknown) (unknown) (no date) (unknown) (unknown) MDM Narrative (units unknown) (unknown) (unknown) (no date) (unknown) (unknown) MIPS: This encounter doesn't have any diagnosis' associated with MIPS criteria. (units unknown) (unknown) (unknown) (no date) (unknown) (unknown) MSK: moves all extremities, neurovascularly intact, no weakness, normal tone no (units unknown) (unknown) (unknown) (no date) (unknown) (unknown) Medical History (units unknown) (unknown) (unknown) (no date) (unknown) (unknown) Medical decision making narrative: (units unknown) (unknown) (unknown) (no date) (unknown) (unknown) Medication Instructions Recorded Confirmed (units unknown) (unknown) (unknown) (no date) (unknown) (unknown) Medication Instructions Recorded (units unknown) (unknown) (unknown) (no date) (unknown) (unknown) Menometrorrhagia (units unknown) (unknown) (unknown) (no date) (unknown) (unknown) Mode of arrival: Ambulatory (units unknown) (unknown) (unknown) (no date) (unknown) (unknown) [place] # (Auto) (0-900 ) /uL (units unknown) (unknown) (unknown) (no date) (unknown) (unknown) [place] # (Auto) 100 (0-900) /uL (units unknown) (unknown) (unknown) (no date) (unknown) (unknown) [place] % (Auto) (3-14) % (units unknown) (unknown) (unknown) (no date) (unknown) (unknown) [place] % (Auto) 2.7 L (3-14) % (units unknown) (unknown) (unknown) (no date) (unknown) (unknown) Mother Diabetes mellitus (units unknown) (unknown) (unknown) (no date) (unknown) (unknown) Narrative (units unknown) (unknown) (unknown) (no date) (unknown) (unknown) Nausea/vomiting ?> 0 = No nausea and no vomiting (units unknown) (unknown) (unknown) (no date) (unknown) (unknown) Neuro: normal speech and cognition, A+O x3, ambulatory, clear speech (units unknown) (unknown) (unknown) (no date) (unknown) (unknown) Neut # (Auto) (4882-4726) /uL (units unknown) (unknown) (unknown) (no date) (unknown) (unknown) Neut # (Auto) 1500 (3737-8475) /uL (units unknown) (unknown) (unknown) (no date) (unknown) (unknown) Neut % (Auto) (50-75 ) % (units unknown) (unknown) (unknown) (no date) (unknown) (unknown) Neut % (Auto) 45.5 L (50-75) % (units unknown) (unknown) (unknown) (no date) (unknown) (unknown) No Action (units unknown) (unknown) (unknown) (no date) (unknown) (unknown) Obesity (units unknown) (unknown) (unknown) (no date) (unknown) (unknown) Ondansetron HCl (Ondansetron 4 Mg Odt) 4 mg SL NOW ONE (units unknown) (unknown) (unknown) (no date) (unknown) (unknown) Ondansetron HCl (Ondansetron 4 Mg/2 Ml Inj) 4 mg IV Q6HR PRN (units unknown) (unknown) (unknown) (no date) (unknown) (unknown) Ordered: (units unknown) (unknown) (unknown) (no date) (unknown) (unknown) Orders (units unknown) (unknown) (unknown) (no date) (unknown) (unknown) Orientation/clouding of sensorium ?> 0 = Oriented, can do serial additions (units unknown) (unknown) (unknown) (no date) (unknown) (unknown) Overweight (units unknown) (unknown) (unknown) (no date) (unknown) (unknown) Oxygen Delivery Method Room Air 07/12/22 16:10 (units unknown) (unknown) (unknown) (no date) (unknown) (unknown) Oxygen Delivery Method Room Air Room Air (units unknown) (unknown) (unknown) (no date) (unknown) (unknown) PRN Reason: Nausea And Vomiting (units unknown) (unknown) (unknown) (no date) (unknown) (unknown) Paroxysmal sweats ?> 0 = No sweat visible (units unknown) (unknown) (unknown) (no date) (unknown) (unknown) Patient History (units unknown) (unknown) (unknown) (no date) (unknown) (unknown) Patient: Sarah Connors MR#: M (units unknown) (unknown) (unknown) (no date) (unknown) (unknown) Patients with scores >= may require medication for withdrawal. (units unknown) (unknown) (unknown) (no date) (unknown) (unknown) Pertinent lab findings reviewed: CBC is pertinent for mild leukopenia of 3.3, (units unknown) (unknown) (unknown) (no date) (unknown) (unknown) Plt Count (150-400) X103/uL (units unknown) (unknown) (unknown) (no date) (unknown) (unknown) Plt Count 226 (150-400) X103/uL (units unknown) (unknown) (unknown) (no date) (unknown) (unknown) Point of Care Testing (units unknown) (unknown) (unknown) (no date) (unknown) (unknown) Potassium (3.4-5.1) mmol/L (units unknown) (unknown) (unknown) (no date) (unknown) (unknown) Potassium 3.9 (3.4-5.1) mmol/L (units unknown) (unknown) (unknown) (no date) (unknown) (unknown) Test Results Negative (units unknown) (unknown) (unknown) (no date) (unknown) (unknown) Prescriptions: (units unknown) (unknown) (unknown) (no date) (unknown) (unknown) Previous Rx's (units unknown) (unknown) (unknown) (no date) (unknown) (unknown) Psych: mental status is grossly normal, congruent mood, normal affect, pleasant (units unknown) (unknown) (unknown) (no date) (unknown) (unknown) Pulse Oximetry 99 07/12/22 16:10 (units unknown) (unknown) (unknown) (no date) (unknown) (unknown) Pulse Oximetry 99 99 (units unknown) (unknown) (unknown) (no date) (unknown) (unknown) Pulse Rate 82 07/12/22 16:10 (units unknown) (unknown) (unknown) (no date) (unknown) (unknown) Pulse Rate 82 86 (units unknown) (unknown) (unknown) (no date) (unknown) (unknown) Qualifiers: (units unknown) (unknown) (unknown) (no date) (unknown) (unknown) Questions are addressed and there is agreement with the plan and for follow-up. (units unknown) (unknown) (unknown) (no date) (unknown) (unknown) RBC (4.0-5.2) X106/uL (units unknown) (unknown) (unknown) (no date) (unknown) (unknown) RBC 4.44 (4.0-5.2) X106/uL (units unknown) (unknown) (unknown) (no date) (unknown) (unknown) RDW (11.6-14.8) % (units unknown) (unknown) (unknown) (no date) (unknown) (unknown) RDW 17.3 H (11.6-14.8) % (units unknown) (unknown) (unknown) (no date) (unknown) (unknown) RESULT SUMMARY: (units unknown) (unknown) (unknown) (no date) (unknown) (unknown) ROS Unobtainable: Al l systems reviewed + are unremarkable except as noted in HPI (units unknown) (unknown) (unknown) (no date) (unknown) (unknown) Referrals: (units unknown) (unknown) (unknown) (no date) (unknown) (unknown) Related Data (units unknown) (unknown) (unknown) (no date) (unknown) (unknown) Respiratory Rate 14 07/12/22 16:10 (units unknown) (unknown) (unknown) (no date) (unknown) (unknown) Respiratory Rate 14 22 (units unknown) (unknown) (unknown) (no date) (unknown) (unknown) Respiratory: normal effort, able to speak in complete sentences, without (units unknown) (unknown) (unknown) (no date) (unknown) (unknown) Review of Systems (units unknown) (unknown) (unknown) (no date) (unknown) (unknown) Reviewed vitals sign s and nursing notes. (units unknown) (unknown) (unknown) (no date) (unknown) (unknown) S/P myringotomy with insertion of tube (units unknown) (unknown) (unknown) (no date) (unknown) (unknown) SARS-CoV-2 (PCR) (Negative) (units unknown) (unknown) (unknown) (no date) (unknown) (unknown) SARS-CoV-2 (PCR) Negative (Negative) (units unknown) (unknown) (unknown) (no date) (unknown) (unknown) (spontaneous vaginal delivery) (-09/05/18) (units unknown) (unknown) (unknown) (no date) (unknown) (unknown) Salicylate Stat (units unknown) (unknown) (unknown) (no date) (unknown) (unknown) Salicylates < 1.0 (<20) mg/dL (units unknown) (unknown) (unknown) (no date) (unknown) (unknown) Salicylates (<20) mg/dL (units unknown) (unknown) (unknown) (no date) (unknown) (unknown) She was given a couple water, a diet order was ordered however they may not (units unknown) (unknown) (unknown) (no date) (unknown) (unknown) Signed By: (units unknown) (unknown) (unknown) (no date) (unknown) (unknown) Skin: brisk capillar y refill, without pallor or erythema (units unknown) (unknown) (unknown) (no date) (unknown) (unknown) Smoker (units unknown) (unknown) (unknown) (no date) (unknown) (unknown) Smoking Status: Former smoker (units unknown) (unknown) (unknown) (no date) (unknown) (unknown) Social History (units unknown) (unknown) (unknown) (no date) (unknown) (unknown) Social consideration s that may affect disposition: none (units unknown) (unknown) (unknown) (no date) (unknown) (unknown) Sodium (137-145) mmol/L (units unknown) (unknown) (unknown) (no date) (unknown) (unknown) Sodium 140 (137-145) mmol/L (units unknown) (unknown) (unknown) (no date) (unknown) (unknown) Sodium Chloride (Normal Saline 0.9%) 1,000 mls @ 1,000 mls/hr IV BOLUS ONE (units unknown) (unknown) (unknown) (no date) (unknown) (unknown) Source: patient (units unknown) (unknown) (unknown) (no date) (unknown) (unknown) Stated Complaint: Stress/Depression (units unknown) (unknown) (unknown) (no date) (unknown) (unknown) Stop: 07/12/22 17:33 (units unknown) (unknown) (unknown) (no date) (unknown) (unknown) Stop: 07/12/22 17:45 (units unknown) (unknown) (unknown) (no date) (unknown) (unknown) Stop: 07/12/22 18:28 (units unknown) (unknown) (unknown) (no date) (unknown) (unknown) Stop: 07/12/22 18:31 (units unknown) (unknown) (unknown) (no date) (unknown) (unknown) Stop: 07/12/22 19:25 (units unknown) (unknown) (unknown) (no date) (unknown) (unknown) Substance Use Type: does not use (units unknown) (unknown) (unknown) (no date) (unknown) (unknown) Surgical History (units unknown) (unknown) (unknown) (no date) (unknown) (unknown) Tactile disturbances ?> 1 = Very mild itching, pin and needles, burning, or (units unknown) (unknown) (unknown) (no date) (unknown) (unknown) Temperature 97.2 F L 07/12/22 16:10 (units unknown) (unknown) (unknown) (no date) (unknown) (unknown) Temperature 97.2 F L (units unknown) (unknown) (unknown) (no date) (unknown) (unknown) Thiamine HCl (Thiamine 100 Mg Tablet) 100 mg PO NOW ONE (units unknown) (unknown) (unknown) (no date) (unknown) (unknown) Thiamine HCl 200 mg/ Sodium (Chloride) 102 mls @ 408 mls/hr IV NOW ONE (units unknown) (unknown) (unknown) (no date) (unknown) (unknown) This is a 31-year-ol d female with history of alcohol abuse and appears to have (units unknown) (unknown) (unknown) (no date) (unknown) (unknown) Thyroid Stimulating Hormone Stat (units unknown) (unknown) (unknown) (no date) (unknown) (unknown) Time Seen by Provider: 07/12/22 17:05 (units unknown) (unknown) (unknown) (no date) (unknown) (unknown) Total Bilirubin (0.2-1.3) mg/dL (units unknown) (unknown) (unknown) (no date) (unknown) (unknown) Total Bilirubin 0.4 (0.2-1.3) mg/dL (units unknown) (unknown) (unknown) (no date) (unknown) (unknown) Total Protein (6.3-8.2) g/dL (units unknown) (unknown) (unknown) (no date) (unknown) (unknown) Total Protein 7.3 (6.3-8.2) g/dL (units unknown) (unknown) (unknown) (no date) (unknown) (unknown) Tremor ?> 1 = Not visible, but can be felt fingertip to fingertip (units unknown) (unknown) (unknown) (no date) (unknown) (unknown) U Benzodiazepines Scrn (Negative) (units unknown) (unknown) (unknown) (no date) (unknown) (unknown) U Benzodiazepines Scrn Negative (Negative) (units unknown) (unknown) (unknown) (no date) (unknown) (unknown) U Marijuana (THC) Screen (Negative) (units unknown) (unknown) (unknown) (no date) (unknown) (unknown) U Marijuana (THC) Screen Negative (Negative) (units unknown) (unknown) (unknown) (no date) (unknown) (unknown) U Methamphetamines Scrn (Negative) (units unknown) (unknown) (unknown) (no date) (unknown) (unknown) U Methamphetamines Scrn Negative (Negative) (units unknown) (unknown) (unknown) (no date) (unknown) (unknown) U Opiates 300ng/mL cut (Negative) (units unknown) (unknown) (unknown) (no date) (unknown) (unknown) U Opiates 300ng/mL cut Negative (Negative) (units unknown) (unknown) (unknown) (no date) (unknown) (unknown) U Tricyclic Antidepress (Negative) (units unknown) (unknown) (unknown) (no date) (unknown) (unknown) U Tricyclic Antidepress Negative (Negative) (units unknown) (unknown) (unknown) (no date) (unknown) (unknown) Ur Amphetamines Screen (Negative) (units unknown) (unknown) (unknown) (no date) (unknown) (unknown) Ur Amphetamines Screen Negative (Negative) (units unknown) (unknown) (unknown) (no date) (unknown) (unknown) Ur Barbiturates Screen (Negative) (units unknown) (unknown) (unknown) (no date) (unknown) (unknown) Ur Barbiturates Screen Negative (Negative) (units unknown) (unknown) (unknown) (no date) (unknown) (unknown) Ur Culture Indicated ? Specimen cultured (units unknown) (unknown) (unknown) (no date) (unknown) (unknown) Ur Culture Indicated? (units unknown) (unknown) (unknown) (no date) (unknown) (unknown) Ur MDMA Scrn (Ecstasy) (Negative) (units unknown) (unknown) (unknown) (no date) (unknown) (unknown) Ur MDMA Scrn (Ecstasy) Negative (Negative) (units unknown) (unknown) (unknown) (no date) (unknown) (unknown) Ur Oxycodone Screen (Negative) (units unknown) (unknown) (unknown) (no date) (unknown) (unknown) Ur Oxycodone Screen Negative (Negative) (units unknown) (unknown) (unknown) (no date) (unknown) (unknown) Ur Phencyclidine Scr n (Negative) (units unknown) (unknown) (unknown) (no date) (unknown) (unknown) Ur Phencyclidine Scr n Negative (Negative) (units unknown) (unknown) (unknown) (no date) (unknown) (unknown) Ur Squamous Epith Cells (0-5/HPF) (units unknown) (unknown) (unknown) (no date) (unknown) (unknown) Ur Squamous Epith Cells 1-5 /hpf (0-5/HPF) (units unknown) (unknown) (unknown) (no date) (unknown) (unknown) Urine Bacteria (None) (units unknown) (unknown) (unknown) (no date) (unknown) (unknown) Urine Bacteria Many (>30) H (None) (units unknown) (unknown) (unknown) (no date) (unknown) (unknown) Urine Cocaine Screen (Negative) (units unknown) (unknown) (unknown) (no date) (unknown) (unknown) Urine Cocaine Screen Negative (Negative) (units unknown) (unknown) (unknown) (no date) (unknown) (unknown) Urine Culture Stat (units unknown) (unknown) (unknown) (no date) (unknown) (unknown) Urine Dip (units unknown) (unknown) (unknown) (no date) (unknown) (unknown) Urine Drug Screen, Rapid Stat (units unknown) (unknown) (unknown) (no date) (unknown) (unknown) Urine Methadone Screen (Negative) (units unknown) (unknown) (unknown) (no date) (unknown) (unknown) Urine Methadone Screen Negative (Negative) (units unknown) (unknown) (unknown) (no date) (unknown) (unknown) Urine Microscopic Stat (units unknown) (unknown) (unknown) (no date) (unknown) (unknown) Urine RBC (0-5/HPF) (units unknown) (unknown) (unknown) (no date) (unknown) (unknown) Urine RBC 1-5/hpf (0-5/HPF) (units unknown) (unknown) (unknown) (no date) (unknown) (unknown) Urine Specific [place] 1.015 (units unknown) (unknown) (unknown) (no date) (unknown) (unknown) Urine WBC (0-5/HPF) (units unknown) (unknown) (unknown) (no date) (unknown) (unknown) Urine WBC 1-5/hpf (0-5/HPF) (units unknown) (unknown) (unknown) (no date) (unknown) (unknown) Urine microscopy wit h many bacteria, pending for culture, will treat for acute (units unknown) (unknown) (unknown) (no date) (unknown) (unknown) Visual disturbances ?> 1 = Very mild sensitivity (units unknown) (unknown) (unknown) (no date) (unknown) (unknown) Vital Signs - 8 hr (units unknown) (unknown) (unknown) (no date) (unknown) (unknown) Vital Signs (units unknown) (unknown) (unknown) (no date) (unknown) (unknown) Vital signs: (units unknown) (unknown) (unknown) (no date) (unknown) (unknown) WBC (4.5-11.0) X103/uL (units unknown) (unknown) (unknown) (no date) (unknown) (unknown) WBC 3.3 L (4.5-11.0) X103/uL (units unknown) (unknown) (unknown) (no date) (unknown) (unknown) [Embedded Image Not Available] (units unknown) (unknown) (unknown) (no date) (unknown) (unknown) [METOCLOPRAMIDE] (units unknown) (unknown) (unknown) (no date) (unknown) (unknown) acetaminophen 325 mg tablet 325 mg PO Q6H PRN pain #20 tabs 02/05/20 (units unknown) (unknown) (unknown) (no date) (unknown) (unknown) acetaminophen [Tylenol] 325 mg tablet (units unknown) (unknown) (unknown) (no date) (unknown) (unknown) alcohol in 300s, she was last here in the emergency department in May of (units unknown) (unknown) (unknown) (no date) (unknown) (unknown) alcohol intake frequency: 3 or more drinks per day (units unknown) (unknown) (unknown) (no date) (unknown) (unknown) alcohol intake: former (units unknown) (unknown) (unknown) (no date) (unknown) (unknown) and below (units unknown) (unknown) (unknown) (no date) (unknown) (unknown) and cooperative (units unknown) (unknown) (unknown) (no date) (unknown) (unknown) arrhythmia, or acute ischemic changes. (units unknown) (unknown) (unknown) (no date) (unknown) (unknown) at extension and states that she feels symptoms of alcohol withdrawal. Denies (units unknown) (unknown) (unknown) (no date) (unknown) (unknown) bpm with rightward axis and normal intervals. No STEMI, ST segment changes, (units unknown) (unknown) (unknown) (no date) (unknown) (unknown) current occupational exposures/hazards: Yes (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 with Pandemic ) (units unknown) (unknown) (unknown) (no date) (unknown) (unknown) cystitis without hematuria (units unknown) (unknown) (unknown) (no date) (unknown) (unknown) cystitis (units unknown) (unknown) (unknown) (no date) (unknown) (unknown) cystitis, she is p.o . tolerant, still pending lab work (units unknown) (unknown) (unknown) (no date) (unknown) (unknown) deliver since it is after 17:00 and the diet order was ordered at 17:30. [place] (units unknown) (unknown) (unknown) (no date) (unknown) (unknown) detox as well. (units unknown) (unknown) (unknown) (no date) (unknown) (unknown) diarrhea or current stool changes. (units unknown) (unknown) (unknown) (no date) (unknown) (unknown) diphenhydramine HCl 25 mg capsule 25 mg PO BEDTIME PRN insomnia #20 02/05/20 (units unknown) (unknown) (unknown) (no date) (unknown) (unknown) diphenhydramine HCl [Benadryl] 25 mg capsule (units unknown) (unknown) (unknown) (no date) (unknown) (unknown) docusate sodium 100 mg capsule 100 mg PO BID #30 caps 02/05/20 (units unknown) (unknown) (unknown) (no date) (unknown) (unknown) docusate sodium [Colace] 100 mg capsule (units unknown) (unknown) (unknown) (no date) (unknown) (unknown) draw her labs (units unknown) (unknown) (unknown) (no date) (unknown) (unknown) education level: college 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[employer] (units unknown) (unknown) (unknown) (no date) (unknown) (unknown) fluid, EtOH, and CIWA, ordered 2 mg of IV lorazepam for patient's symptoms, (units unknown) (unknown) (unknown) (no date) (unknown) (unknown) for alcohol related complaints through 2019, and she presented to the [facility] (units unknown) (unknown) (unknown) (no date) (unknown) (unknown) from social work is aware and pending her lab work to arrange for inpatient (units unknown) (unknown) (unknown) (no date) (unknown) (unknown) her urine microscopy came back positive for many bacteria, will treat for acute (units unknown) (unknown) (unknown) (no date) (unknown) (unknown) household members: spouse and children (units unknown) (unknown) (unknown) (no date) (unknown) (unknown) hydrocodone [HYDROCODONE] AdvReac Unknown VOMITING Verified 07/12/22 16:18 (units unknown) (unknown) (unknown) (no date) (unknown) (unknown) ibuprofen 600 mg Tablet (units unknown) (unknown) (unknown) (no date) (unknown) (unknown) ibuprofen 600 mg tablet 600 mg PO Q6HR PRN Pain, Mild 07/04/20 (units unknown) (unknown) (unknown) (no date) (unknown) (unknown) injuries, denies chance of , denies any other ingestions, is pleasant, (units unknown) (unknown) (unknown) (no date) (unknown) (unknown) intoxicated endorses symptoms of alcohol withdrawal. (units unknown) (unknown) (unknown) (no date) (unknown) (unknown) intoxicated, pleasant, interactive and comfortable although active and fidgeting (units unknown) (unknown) (unknown) (no date) (unknown) (unknown) limited history currently due to intoxication. She states that she is recently (units unknown) (unknown) (unknown) (no date) (unknown) (unknown) lorazepam at 2 mg fo r this. (units unknown) (unknown) (unknown) (no date) (unknown) (unknown) marital status: (units unknown) (unknown) (unknown) (no date) (unknown) (unknown) metoclopramide Allergy Mild RASH/HIVES Verified 07/12/22 16:18 (units unknown) (unknown) (unknown) (no date) (unknown) (unknown) mild anemia but improved from her prior with H+H of 11.5 and 35.3, no evidence (units unknown) (unknown) (unknown) (no date) (unknown) (unknown) nausea vomiting or abdominal pain at this time. Denies any vomiting home or (units unknown) (unknown) (unknown) (no date) (unknown) (unknown) number of children: 1 (units unknown) (unknown) (unknown) (no date) (unknown) (unknown) numbness (units unknown) (unknown) (unknown) (no date) (unknown) (unknown) occupational status: employed (units unknown) (unknown) (unknown) (no date) (unknown) (unknown) of bleeding anywhere , CMP (units unknown) (unknown) (unknown) (no date) (unknown) (unknown) ondansetron 4 mg disintegrating 4 mg PO Q6H PRN nausea and 06/12/22 (units unknown) (unknown) (unknown) (no date) (unknown) (unknown) ondansetron 4 mg disintegrating 4 mg PO Q8H PRN nausea and 01/01/20 (units unknown) (unknown) (unknown) (no date) (unknown) (unknown) ondansetron 4 mg disintegrating 4 mg PO Q8H PRN nausea and 02/05/20 (units unknown) (unknown) (unknown) (no date) (unknown) (unknown) ondansetron 4 mg tablet,disintegrating (units unknown) (unknown) (unknown) (no date) (unknown) (unknown) ordered p.o. Ativan for her symptoms and ask our into call lab to come up and (units unknown) (unknown) (unknown) (no date) (unknown) (unknown) prenat.vits,otis,min- i thang-folic 1 tab PO DAILY 12/30/19 07/03/20 (units unknown) (unknown) (unknown) (no date) (unknown) (unknown) prenat.vits,otis,min- i thang-folic Tablet (units unknown) (unknown) (unknown) (no date) (unknown) (unknown) relapsed due to a divorce with her . She used to be a frequent visitor (units unknown) (unknown) (unknown) (no date) (unknown) (unknown) second hand exposure : No (growing up as a child - not currently) (units unknown) (unknown) (unknown) (no date) (unknown) (unknown) seeking help with he r intoxication and wishes to go to detox. She is currently (units unknown) (unknown) (unknown) (no date) (unknown) (unknown) significant tremor o r tongue fasciculation, she has a mild tremor with her arms (units unknown) (unknown) (unknown) (no date) (unknown) (unknown) social work and orders are pending (units unknown) (unknown) (unknown) (no date) (unknown) (unknown) special renee needs: No (units unknown) (unknown) (unknown) (no date) (unknown) (unknown) substance abuse, alcohol intoxication, psychosis, mood disorder, depression (units unknown) (unknown) (unknown) (no date) (unknown) (unknown) substance use type: does not use (units unknown) (unknown) (unknown) (no date) (unknown) (unknown) tablet vomiting #14 tabs (units unknown) (unknown) (unknown) (no date) (unknown) (unknown) tablet vomiting #20 tabs (units unknown) (unknown) (unknown) (no date) (unknown) (unknown) tablet vomiting #30 tabs (units unknown) (unknown) (unknown) (no date) (unknown) (unknown) tenderness or exquisite tenderness with exam. (units unknown) (unknown) (unknown) (no date) (unknown) (unknown) that she drinks vodk a and admits to drinking heavily today, states that she took (units unknown) (unknown) (unknown) (no date) (unknown) (unknown) the bottle upside down and started checking from it. She denies any recent (units unknown) (unknown) (unknown) (no date) (unknown) (unknown) tramadol 50 mg table t 50 mg PO Q6H PRN pain #10 tabs 06/12/22 (units unknown) (unknown) (unknown) (no date) (unknown) (unknown) tramadol 50 mg tablet (units unknown) (unknown) (unknown) (no date) (unknown) (unknown) tremors, no tachycardia, her CIWA is currently 10, ordered another p.o. dose of (units unknown) (unknown) (unknown) (no date) (unknown) (unknown) well as prior record s if available. (units unknown) (unknown) (unknown) (no date) (unknown) (unknown) wheezing, stridor, o r abnormal breath sounds. No retractions or tachypnea. (units unknown) (unknown) Result panel 2178 (unknown) (no date) (unknown) (unknown) (no value) (units unknown) (unknown) (unknown) (no date) (unknown) (unknown) (1-3) #30 tabs (units unknown) (unknown) (unknown) (no date) (unknown) (unknown) (Benadryl) caps (units unknown) (unknown) (unknown) (no date) (unknown) (unknown) (Colace) (units unknown) (unknown) (unknown) (no date) (unknown) (unknown) (Tylenol) (units unknown) (unknown) (unknown) (no date) (unknown) (unknown) [id number] (units unknown) (unknown) (unknown) (no date) (unknown) (unknown) 07/12/22 07/12/22 07/12/22 Range/Units (units unknown) (unknown) (unknown) (no date) (unknown) (unknown) 07/12/22 07/12/22 Range/Units (units unknown) (unknown) (unknown) (no date) (unknown) (unknown) 07/12/22 16:28 (units unknown) (unknown) (unknown) (no date) (unknown) (unknown) 07/12/22 16:32 (units unknown) (unknown) (unknown) (no date) (unknown) (unknown) 07/12/22 18:28 (units unknown) (unknown) (unknown) (no date) (unknown) (unknown) 07/12/22 19:15 (units unknown) (unknown) (unknown) (no date) (unknown) (unknown) 07/12/22 (units unknown) (unknown) (unknown) (no date) (unknown) (unknown) 1 tab PO DAILY (units unknown) (unknown) (unknown) (no date) (unknown) (unknown) 100 mg PO BID Qty: 3 0 0RF (units unknown) (unknown) (unknown) (no date) (unknown) (unknown) 16:10 07/12/22 (units unknown) (unknown) (unknown) (no date) (unknown) (unknown) 16:32 16:32 16:32 (units unknown) (unknown) (unknown) (no date) (unknown) (unknown) 1836 patient still does not have an IV, has not received any IV fluid her (units unknown) (unknown) (unknown) (no date) (unknown) (unknown) 18:53 (units unknown) (unknown) (unknown) (no date) (unknown) (unknown) 1899 still no IV, patient is p.o. challenging, she received her p.o. lorazepam, (units unknown) (unknown) (unknown) (no date) (unknown) (unknown) 1929, patient now feels depressed, she is lying in bed, feeling bad, has (units unknown) (unknown) (unknown) (no date) (unknown) (unknown) 19:15 19:15 (units unknown) (unknown) (unknown) (no date) (unknown) (unknown) 1999 patient is feeling better now, her lab work is starting to return and ETOH (units unknown) (unknown) (unknown) (no date) (unknown) (unknown) 2022 with similar symptoms. She comes in complaining of needing help, states (units unknown) (unknown) (unknown) (no date) (unknown) (unknown) 25 mg PO BEDTIME PRN (Reason: insomnia) Qty: 20 0RF (units unknown) (unknown) (unknown) (no date) (unknown) (unknown) 325 mg PO Q6H PRN (Reason: pain) Qty: 20 0RF (units unknown) (unknown) (unknown) (no date) (unknown) (unknown) 4 mg PO Q6H PRN (Reason: nausea and vomiting) Qty: 14 0RF (units unknown) (unknown) (unknown) (no date) (unknown) (unknown) 4 mg PO Q8H PRN (Reason: nausea and vomiting) Qty: 20 0RF (units unknown) (unknown) (unknown) (no date) (unknown) (unknown) 4 mg PO Q8H PRN (Reason: nausea and vomiting) Qty: 30 0RF (units unknown) (unknown) (unknown) (no date) (unknown) (unknown) 50 mg PO Q6H PRN (Reason: pain) Qty: 10 0RF (units unknown) (unknown) (unknown) (no date) (unknown) (unknown) 600 mg PO Q6HR PRN (Reason: Pain, Mild (1-3)) Qty: 30 0RF (units unknown) (unknown) (unknown) (no date) (unknown) (unknown) 9 points (units unknown) (unknown) (unknown) (no date) (unknown) (unknown) ALT (<35) IU/L (units unknown) (unknown) (unknown) (no date) (unknown) (unknown) ALT 21 (<35) IU/L (units unknown) (unknown) (unknown) (no date) (unknown) (unknown) AST (14-36) IU/L (units unknown) (unknown) (unknown) (no date) (unknown) (unknown) AST 67 H (14-36) IU/L (units unknown) (unknown) (unknown) (no date) (unknown) (unknown) Acetaminophen < 10 (10-30) ug/mL (units unknown) (unknown) (unknown) (no date) (unknown) (unknown) Acetaminophen (10-30 ) ug/mL (units unknown) (unknown) (unknown) (no date) (unknown) (unknown) Acetaminophen Stat (units unknown) (unknown) (unknown) (no date) (unknown) (unknown) Acute cystitis (units unknown) (unknown) (unknown) (no date) (unknown) (unknown) Age/Sex: 31 / F (units unknown) (unknown) (unknown) (no date) (unknown) (unknown) Agitation ?> 2 = (More severe symptoms) (units unknown) (unknown) (unknown) (no date) (unknown) (unknown) Albumin (3.5-5.0) g/dL (units unknown) (unknown) (unknown) (no date) (unknown) (unknown) Albumin 4.3 (3.5-5.0 ) g/dL (units unknown) (unknown) (unknown) (no date) (unknown) (unknown) Albumin/Globulin Ratio (1.0-2.8) (units unknown) (unknown) (unknown) (no date) (unknown) (unknown) Albumin/Globulin Ratio 1.4 (1.0-2.8) (units unknown) (unknown) (unknown) (no date) (unknown) (unknown) Alcohol use disorder (units unknown) (unknown) (unknown) (no date) (unknown) (unknown) Alcoholism (units unknown) (unknown) (unknown) (no date) (unknown) (unknown) Alkaline Phosphatase (38-126) U/L (units unknown) (unknown) (unknown) (no date) (unknown) (unknown) Alkaline Phosphatase 98 (38-126) U/L (units unknown) (unknown) (unknown) (no date) (unknown) (unknown) Allergies (units unknown) (unknown) (unknown) (no date) (unknown) (unknown) Allergy/AdvReac Type Severity Reaction Status Date / Time (units unknown) (unknown) (unknown) (no date) (unknown) (unknown) Anemia (-2018) (units unknown) (unknown) (unknown) (no date) (unknown) (unknown) Anxiety ?> 2 = (More severe symptoms) (units unknown) (unknown) (unknown) (no date) (unknown) (unknown) Auditory disturbance s ?> 1 = Very mild harshness or ability to frighten (units unknown) (unknown) (unknown) (no date) (unknown) (unknown) BUN (7-17) mg/dL (units unknown) (unknown) (unknown) (no date) (unknown) (unknown) BUN 9 (7-17) mg/dL (units unknown) (unknown) (unknown) (no date) (unknown) (unknown) BUN/Creatinine Ratio (6-22) (units unknown) (unknown) (unknown) (no date) (unknown) (unknown) BUN/Creatinine Ratio 11.0 (6-22) (units unknown) (unknown) (unknown) (no date) (unknown) (unknown) Baso # (Auto) (0-100 ) /uL (units unknown) (unknown) (unknown) (no date) (unknown) (unknown) Baso # (Auto) 0 (0-100) /uL (units unknown) (unknown) (unknown) (no date) (unknown) (unknown) Baso % (Auto) (0-2) % (units unknown) (unknown) (unknown) (no date) (unknown) (unknown) Baso % (Auto) 0.9 (0-2) % (units unknown) (unknown) (unknown) (no date) (unknown) (unknown) Bedside Urine Bilirubin - Negative (units unknown) (unknown) (unknown) (no date) (unknown) (unknown) Bedside Urine Glucos e Negative (units unknown) (unknown) (unknown) (no date) (unknown) (unknown) Bedside Urine Ketone - Negative (units unknown) (unknown) (unknown) (no date) (unknown) (unknown) Bedside Urine Leukocytes - Negative (units unknown) (unknown) (unknown) (no date) (unknown) (unknown) Bedside Urine Nitrit e + Positive (units unknown) (unknown) (unknown) (no date) (unknown) (unknown) Bedside Urine Occult Blood - Negative (units unknown) (unknown) (unknown) (no date) (unknown) (unknown) Bedside Urine Protei n - Negative (units unknown) (unknown) (unknown) (no date) (unknown) (unknown) Bedside Urine Urobilinogen - Negative (units unknown) (unknown) (unknown) (no date) (unknown) (unknown) Bedside Urine pH 6.0 (units unknown) (unknown) (unknown) (no date) (unknown) (unknown) Blood Pressure 112/6 2 07/12/22 16:10 (units unknown) (unknown) (unknown) (no date) (unknown) (unknown) Blood Pressure 112/62 (units unknown) (unknown) (unknown) (no date) (unknown) (unknown) Blood Pressure [Left Arm] 100/59 L (units unknown) (unknown) (unknown) (no date) (unknown) (unknown) CIWA is now worse an d she has tremors, anxiety is worsening and agitation, (units unknown) (unknown) (unknown) (no date) (unknown) (unknown) CIWA-Ar for Alcohol Withdrawal from [email or web address] on 07/12/2022 (units unknown) (unknown) (unknown) (no date) (unknown) (unknown) COVID19 -Nasal RAPID/Pre-Proc Stat (units unknown) (unknown) (unknown) (no date) (unknown) (unknown) Calcium (8.4-10.2) mg/dL (units unknown) (unknown) (unknown) (no date) (unknown) (unknown) Calcium 8.0 L (8.4-10.2) mg/dL (units unknown) (unknown) (unknown) (no date) (unknown) (unknown) Carbon Dioxide (22-32) mmol/L (units unknown) (unknown) (unknown) (no date) (unknown) (unknown) Carbon Dioxide 23 (22-32) mmol/L (units unknown) (unknown) (unknown) (no date) (unknown) (unknown) Cardiovascular: regular rate and rhythm, no peripheral edema, warm extremities (units unknown) (unknown) (unknown) (no date) (unknown) (unknown) Cephalexin HCl (Cephalexin 250 Mg Capsule) 500 mg PO Q6H SANDY (units unknown) (unknown) (unknown) (no date) (unknown) (unknown) Chief Complaint: Alcohol intoxication, seeking detox (units unknown) (unknown) (unknown) (no date) (unknown) (unknown) Chief Complaint: Toxicology Problem (units unknown) (unknown) (unknown) (no date) (unknown) (unknown) Chloride (98-107) mmol/L (units unknown) (unknown) (unknown) (no date) (unknown) (unknown) Chloride 104 (98-107 ) mmol/L (units unknown) (unknown) (unknown) (no date) (unknown) (unknown) Clinical Impression: (units unknown) (unknown) (unknown) (no date) (unknown) (unknown) Clinical decision rules or scores evaluated: CIWA of 9 at 1753 (units unknown) (unknown) (unknown) (no date) (unknown) (unknown) Complete Blood Count AUTO DIFF Stat (units unknown) (unknown) (unknown) (no date) (unknown) (unknown) Comprehensive Metabolic Panel Stat (units unknown) (unknown) (unknown) (no date) (unknown) (unknown) 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 (units unknown) (unknown) (unknown) (no date) (unknown) (unknown) Course of care: Patient is a difficult IV stick, ordered IV with lab work, (units unknown) (unknown) (unknown) (no date) (unknown) (unknown) Course (units unknown) (unknown) (unknown) (no date) (unknown) (unknown) Creatinine (0.52-1.04) mg/dL (units unknown) (unknown) (unknown) (no date) (unknown) (unknown) Creatinine 0.82 (0.52-1.04) mg/dL (units unknown) (unknown) (unknown) (no date) (unknown) (unknown) : 1990 Acct:[id number] (units unknown) (unknown) (unknown) (no date) (unknown) (unknown) Date of Service: 07/12/22 (units unknown) (unknown) (unknown) (no date) (unknown) (unknown) Departure (units unknown) (unknown) (unknown) (no date) (unknown) (unknown) Differential diagnoses include but are not limited to: Alcohol withdrawal, (units unknown) (unknown) (unknown) (no date) (unknown) (unknown) Discharge Plan (units unknown) (unknown) (unknown) (no date) (unknown) (unknown) Discontinued Medications (units unknown) (unknown) (unknown) (no date) (unknown) (unknown) Documented By: KB (units unknown) (unknown) (unknown) (no date) (unknown) (unknown) Documented By: OW (units unknown) (unknown) (unknown) (no date) (unknown) (unknown) ECG Data (units unknown) (unknown) (unknown) (no date) (unknown) (unknown) ED Orders (units unknown) (unknown) (unknown) (no date) (unknown) (unknown) EKG independently reviewed by myself at 1830 reveals normal sinus rhythm at 72 (units unknown) (unknown) (unknown) (no date) (unknown) (unknown) EKG-12 Lead Stat (units unknown) (unknown) (unknown) (no date) (unknown) (unknown) ER Physician: Juliet Paz (units unknown) (unknown) (unknown) (no date) (unknown) (unknown) Emergency Report (units unknown) (unknown) (unknown) (no date) (unknown) (unknown) Eos # (Auto) (0-450) /uL (units unknown) (unknown) (unknown) (no date) (unknown) (unknown) Eos # (Auto) 0 (0-450) /uL (units unknown) (unknown) (unknown) (no date) (unknown) (unknown) Eos % (Auto) (2-4) % (units unknown) (unknown) (unknown) (no date) (unknown) (unknown) Eos % (Auto) 0.3 L (2-4) % (units unknown) (unknown) (unknown) (no date) (unknown) (unknown) Esterase (units unknown) (unknown) (unknown) (no date) (unknown) (unknown) Estimated GFR > 60 (>60) mL/min (units unknown) (unknown) (unknown) (no date) (unknown) (unknown) Estimated GFR (>60) mL/min (units unknown) (unknown) (unknown) (no date) (unknown) (unknown) Ethanol (ETOH) Stat (units unknown) (unknown) (unknown) (no date) (unknown) (unknown) Ethyl Alcohol ( - 10 ) mg/dL (units unknown) (unknown) (unknown) (no date) (unknown) (unknown) Ethyl Alcohol 338 H ( - 10) mg/dL (units unknown) (unknown) (unknown) (no date) (unknown) (unknown) Exam Narrative: (units unknown) (unknown) (unknown) (no date) (unknown) (unknown) Exam (units unknown) (unknown) (unknown) (no date) (unknown) (unknown) Family History (units unknown) (unknown) (unknown) (no date) (unknown) (unknown) Family/Other Alcoholism (units unknown) (unknown) (unknown) (no date) (unknown) (unknown) Family/Other Diabete s mellitus (units unknown) (unknown) (unknown) (no date) (unknown) (unknown) Father Alcoholism (units unknown) (unknown) (unknown) (no date) (unknown) (unknown) Tonia Schneider MD [Primary Care Provider] (units unknown) (unknown) (unknown) (no date) (unknown) (unknown) Folic Acid (Folic Acid 1 Mg Tablet) 1 mg PO DAILY SANDY (units unknown) (unknown) (unknown) (no date) (unknown) (unknown) Free T4, Direct Thyroxine Stat (units unknown) (unknown) (unknown) (no date) (unknown) (unknown) GI: abdomen soft, nontender to palpation, nondistended, without masses, rebound (units unknown) (unknown) (unknown) (no date) (unknown) (unknown) General (units unknown) (unknown) (unknown) (no date) (unknown) (unknown) General: cooperative , comfortable, in no acute distress, well groomed, appears (units unknown) (unknown) (unknown) (no date) (unknown) (unknown) Globulin (1.7-4.1) g/dL (units unknown) (unknown) (unknown) (no date) (unknown) (unknown) Globulin 3.0 (1.7-4.1) g/dL (units unknown) (unknown) (unknown) (no date) (unknown) (unknown) Glucose (70-100) mg/dL (units unknown) (unknown) (unknown) (no date) (unknown) (unknown) Glucose 111 H (70-100) mg/dL (units unknown) (unknown) (unknown) (no date) (unknown) (unknown) Grandfather Smoker (units unknown) (unknown) (unknown) (no date) (unknown) (unknown) Grandfather Unknown whether patient has any health problems (units unknown) (unknown) (unknown) (no date) (unknown) (unknown) Grandmother Diabetes mellitus (units unknown) (unknown) (unknown) (no date) (unknown) (unknown) Grandmother Hypoglycemia (units unknown) (unknown) (unknown) (no date) (unknown) (unknown) H/O dilation and curettage (-12/14/16) (units unknown) (unknown) (unknown) (no date) (unknown) (unknown) H/O wisdom tooth extraction () (units unknown) (unknown) (unknown) (no date) (unknown) (unknown) HEENT: symmetrical facial expressions, dry mucous membranes (units unknown) (unknown) (unknown) (no date) (unknown) (unknown) HPI - Alcohol (units unknown) (unknown) (unknown) (no date) (unknown) (unknown) HPI narrative: (units unknown) (unknown) (unknown) (no date) (unknown) (unknown) Hct (36-46) % (units unknown) (unknown) (unknown) (no date) (unknown) (unknown) Hct 35.3 L (36-46) % (units unknown) (unknown) (unknown) (no date) (unknown) (unknown) Headache/fullness in head ?> 1 = Very mild (units unknown) (unknown) (unknown) (no date) (unknown) (unknown) Hematuria presence: without hematuria Qualified Code(s): N30.00 - Acute (units unknown) (unknown) (unknown) (no date) (unknown) (unknown) Hgb (12.0-16.0) g/dL (units unknown) (unknown) (unknown) (no date) (unknown) (unknown) Hgb 11.5 L (12.0-16.0) g/dL (units unknown) (unknown) (unknown) (no date) (unknown) (unknown) History of Present Illness (units unknown) (unknown) (unknown) (no date) (unknown) (unknown) Home Medications (units unknown) (unknown) (unknown) (no date) (unknown) (unknown) I have independently reviewed the patient's vital signs and nursing notes as (units unknown) (unknown) (unknown) (no date) (unknown) (unknown) INPUTS: (units unknown) (unknown) (unknown) (no date) (unknown) (unknown) Independent historian: Patient (units unknown) (unknown) (unknown) (no date) (unknown) (unknown) Initial Vital Signs (units unknown) (unknown) (unknown) (no date) (unknown) (unknown) Initial Vital Signs: (units unknown) (unknown) (unknown) (no date) (unknown) (unknown) Insomnia (units unknown) (unknown) (unknown) (no date) (unknown) (unknown) Interpretation: (units unknown) (unknown) (unknown) (no date) (unknown) (unknown) [address] [address] (units unknown) (unknown) (unknown) (no date) (unknown) (unknown) Lab Data (units unknown) (unknown) (unknown) (no date) (unknown) (unknown) Lab Results (units unknown) (unknown) (unknown) (no date) (unknown) (unknown) Labs: (units unknown) (unknown) (unknown) (no date) (unknown) (unknown) Last Admin: 07/12/22 18:39 Dose: 4 mg (units unknown) (unknown) (unknown) (no date) (unknown) (unknown) Last Admin: 07/12/22 18:40 Dose: 1 mg (units unknown) (unknown) (unknown) (no date) (unknown) (unknown) Last Admin: 07/12/22 18:56 Dose: Not Given (units unknown) (unknown) (unknown) (no date) (unknown) (unknown) Lorazepam (Lorazepam 0.5 Mg Tablet) 1 mg PO NOW ONE (units unknown) (unknown) (unknown) (no date) (unknown) (unknown) Lorazepam (Lorazepam 0.5 Mg Tablet) 2 mg PO NOW ONE (units unknown) (unknown) (unknown) (no date) (unknown) (unknown) Lorazepam (Lorazepam 2 Mg/Ml Inj) 2 mg IV NOW ONE (units unknown) (unknown) (unknown) (no date) (unknown) (unknown) Lymph # (Auto) ([id number]) /uL (units unknown) (unknown) (unknown) (no date) (unknown) (unknown) Lymph # (Auto) 1700 ([id number]) /uL (units unknown) (unknown) (unknown) (no date) (unknown) (unknown) Lymph % (Auto) (25-40) % (units unknown) (unknown) (unknown) (no date) (unknown) (unknown) Lymph % (Auto) 50.6 H (25-40) % (units unknown) (unknown) (unknown) (no date) (unknown) (unknown) MCH (26-34) PG (units unknown) (unknown) (unknown) (no date) (unknown) (unknown) MCH 26.0 (26-34) PG (units unknown) (unknown) (unknown) (no date) (unknown) (unknown) MCHC (30-36) % (units unknown) (unknown) (unknown) (no date) (unknown) (unknown) MCHC 32.7 (30-36) % (units unknown) (unknown) (unknown) (no date) (unknown) (unknown) MCV (80-100) fL (units unknown) (unknown) (unknown) (no date) (unknown) (unknown) MCV 79.5 L (80-100) fL (units unknown) (unknown) (unknown) (no date) (unknown) (unknown) MDM - Alcohol (units unknown) (unknown) (unknown) (no date) (unknown) (unknown) MDM Narrative (units unknown) (unknown) (unknown) (no date) (unknown) (unknown) MIPS: This encounter doesn't have any diagnosis' associated with MIPS criteria. (units unknown) (unknown) (unknown) (no date) (unknown) (unknown) MSK: moves all extremities, neurovascularly intact, no weakness, normal tone no (units unknown) (unknown) (unknown) (no date) (unknown) (unknown) Medical History (units unknown) (unknown) (unknown) (no date) (unknown) (unknown) Medical decision making narrative: (units unknown) (unknown) (unknown) (no date) (unknown) (unknown) Medication Instructions Recorded Confirmed (units unknown) (unknown) (unknown) (no date) (unknown) (unknown) Medication Instructions Recorded (units unknown) (unknown) (unknown) (no date) (unknown) (unknown) Menometrorrhagia (units unknown) (unknown) (unknown) (no date) (unknown) (unknown) Mode of arrival: Ambulatory (units unknown) (unknown) (unknown) (no date) (unknown) (unknown) [place] # (Auto) (0-900 ) /uL (units unknown) (unknown) (unknown) (no date) (unknown) (unknown) [place] # (Auto) 100 (0-900) /uL (units unknown) (unknown) (unknown) (no date) (unknown) (unknown) [place] % (Auto) (3-14) % (units unknown) (unknown) (unknown) (no date) (unknown) (unknown) [place] % (Auto) 2.7 L (3-14) % (units unknown) (unknown) (unknown) (no date) (unknown) (unknown) Mother Diabetes mellitus (units unknown) (unknown) (unknown) (no date) (unknown) (unknown) Narrative (units unknown) (unknown) (unknown) (no date) (unknown) (unknown) Nausea/vomiting ?> 0 = No nausea and no vomiting (units unknown) (unknown) (unknown) (no date) (unknown) (unknown) Neuro: normal speech and cognition, A+O x3, ambulatory, clear speech (units unknown) (unknown) (unknown) (no date) (unknown) (unknown) Neut # (Auto) (9619-2304) /uL (units unknown) (unknown) (unknown) (no date) (unknown) (unknown) Neut # (Auto) 1500 (2750-7533) /uL (units unknown) (unknown) (unknown) (no date) (unknown) (unknown) Neut % (Auto) (50-75 ) % (units unknown) (unknown) (unknown) (no date) (unknown) (unknown) Neut % (Auto) 45.5 L (50-75) % (units unknown) (unknown) (unknown) (no date) (unknown) (unknown) No Action (units unknown) (unknown) (unknown) (no date) (unknown) (unknown) Obesity (units unknown) (unknown) (unknown) (no date) (unknown) (unknown) Ondansetron HCl (Ondansetron 4 Mg Odt) 4 mg SL NOW ONE (units unknown) (unknown) (unknown) (no date) (unknown) (unknown) Ondansetron HCl (Ondansetron 4 Mg/2 Ml Inj) 4 mg IV Q6HR PRN (units unknown) (unknown) (unknown) (no date) (unknown) (unknown) Ordered: (units unknown) (unknown) (unknown) (no date) (unknown) (unknown) Orders (units unknown) (unknown) (unknown) (no date) (unknown) (unknown) Orientation/clouding of sensorium ?> 0 = Oriented, can do serial additions (units unknown) (unknown) (unknown) (no date) (unknown) (unknown) Overweight (units unknown) (unknown) (unknown) (no date) (unknown) (unknown) Oxygen Delivery Method Room Air 07/12/22 16:10 (units unknown) (unknown) (unknown) (no date) (unknown) (unknown) Oxygen Delivery Method Room Air Room Air (units unknown) (unknown) (unknown) (no date) (unknown) (unknown) PRN Reason: Nausea And Vomiting (units unknown) (unknown) (unknown) (no date) (unknown) (unknown) Paroxysmal sweats ?> 0 = No sweat visible (units unknown) (unknown) (unknown) (no date) (unknown) (unknown) Patient History (units unknown) (unknown) (unknown) (no date) (unknown) (unknown) Patient: Sarah Connors MR#: M (units unknown) (unknown) (unknown) (no date) (unknown) (unknown) Patients with scores >= may require medication for withdrawal. (units unknown) (unknown) (unknown) (no date) (unknown) (unknown) Pertinent lab findings reviewed: CBC is pertinent for mild leukopenia of 3.3, (units unknown) (unknown) (unknown) (no date) (unknown) (unknown) Plt Count (150-400) X103/uL (units unknown) (unknown) (unknown) (no date) (unknown) (unknown) Plt Count 226 (150-400) X103/uL (units unknown) (unknown) (unknown) (no date) (unknown) (unknown) Point of Care Testing (units unknown) (unknown) (unknown) (no date) (unknown) (unknown) Potassium (3.4-5.1) mmol/L (units unknown) (unknown) (unknown) (no date) (unknown) (unknown) Potassium 3.9 (3.4-5.1) mmol/L (units unknown) (unknown) (unknown) (no date) (unknown) (unknown) Test Results Negative (units unknown) (unknown) (unknown) (no date) (unknown) (unknown) Prescriptions: (units unknown) (unknown) (unknown) (no date) (unknown) (unknown) Previous Rx's (units unknown) (unknown) (unknown) (no date) (unknown) (unknown) Psych: mental status is grossly normal, congruent mood, normal affect, pleasant (units unknown) (unknown) (unknown) (no date) (unknown) (unknown) Pulse Oximetry 99 07/12/22 16:10 (units unknown) (unknown) (unknown) (no date) (unknown) (unknown) Pulse Oximetry 99 99 (units unknown) (unknown) (unknown) (no date) (unknown) (unknown) Pulse Rate 82 07/12/22 16:10 (units unknown) (unknown) (unknown) (no date) (unknown) (unknown) Pulse Rate 82 86 (units unknown) (unknown) (unknown) (no date) (unknown) (unknown) Qualifiers: (units unknown) (unknown) (unknown) (no date) (unknown) (unknown) Questions are addressed and there is agreement with the plan and for follow-up. (units unknown) (unknown) (unknown) (no date) (unknown) (unknown) RBC (4.0-5.2) X106/uL (units unknown) (unknown) (unknown) (no date) (unknown) (unknown) RBC 4.44 (4.0-5.2) X106/uL (units unknown) (unknown) (unknown) (no date) (unknown) (unknown) RDW (11.6-14.8) % (units unknown) (unknown) (unknown) (no date) (unknown) (unknown) RDW 17.3 H (11.6-14.8) % (units unknown) (unknown) (unknown) (no date) (unknown) (unknown) RESULT SUMMARY: (units unknown) (unknown) (unknown) (no date) (unknown) (unknown) ROS Unobtainable: Al l systems reviewed + are unremarkable except as noted in HPI (units unknown) (unknown) (unknown) (no date) (unknown) (unknown) Referrals: (units unknown) (unknown) (unknown) (no date) (unknown) (unknown) Related Data (units unknown) (unknown) (unknown) (no date) (unknown) (unknown) Respiratory Rate 14 07/12/22 16:10 (units unknown) (unknown) (unknown) (no date) (unknown) (unknown) Respiratory Rate 14 22 (units unknown) (unknown) (unknown) (no date) (unknown) (unknown) Respiratory: normal effort, able to speak in complete sentences, without (units unknown) (unknown) (unknown) (no date) (unknown) (unknown) Review of Systems (units unknown) (unknown) (unknown) (no date) (unknown) (unknown) Reviewed vitals sign s and nursing notes. (units unknown) (unknown) (unknown) (no date) (unknown) (unknown) S/P myringotomy with insertion of tube (units unknown) (unknown) (unknown) (no date) (unknown) (unknown) SARS-CoV-2 (PCR) (Negative) (units unknown) (unknown) (unknown) (no date) (unknown) (unknown) SARS-CoV-2 (PCR) Negative (Negative) (units unknown) (unknown) (unknown) (no date) (unknown) (unknown) (spontaneous vaginal delivery) (-09/05/18) (units unknown) (unknown) (unknown) (no date) (unknown) (unknown) Salicylate Stat (units unknown) (unknown) (unknown) (no date) (unknown) (unknown) Salicylates < 1.0 (<20) mg/dL (units unknown) (unknown) (unknown) (no date) (unknown) (unknown) Salicylates (<20) mg/dL (units unknown) (unknown) (unknown) (no date) (unknown) (unknown) She was given a couple water, a diet order was ordered however they may not (units unknown) (unknown) (unknown) (no date) (unknown) (unknown) Signed By: (units unknown) (unknown) (unknown) (no date) (unknown) (unknown) Skin: brisk capillar y refill, without pallor or erythema (units unknown) (unknown) (unknown) (no date) (unknown) (unknown) Smoker (units unknown) (unknown) (unknown) (no date) (unknown) (unknown) Smoking Status: Former smoker (units unknown) (unknown) (unknown) (no date) (unknown) (unknown) Social History (units unknown) (unknown) (unknown) (no date) (unknown) (unknown) Social consideration s that may affect disposition: none (units unknown) (unknown) (unknown) (no date) (unknown) (unknown) Sodium (137-145) mmol/L (units unknown) (unknown) (unknown) (no date) (unknown) (unknown) Sodium 140 (137-145) mmol/L (units unknown) (unknown) (unknown) (no date) (unknown) (unknown) Sodium Chloride (Normal Saline 0.9%) 1,000 mls @ 1,000 mls/hr IV BOLUS ONE (units unknown) (unknown) (unknown) (no date) (unknown) (unknown) Source: patient (units unknown) (unknown) (unknown) (no date) (unknown) (unknown) Stated Complaint: Stress/Depression (units unknown) (unknown) (unknown) (no date) (unknown) (unknown) Stop: 07/12/22 17:33 (units unknown) (unknown) (unknown) (no date) (unknown) (unknown) Stop: 07/12/22 17:45 (units unknown) (unknown) (unknown) (no date) (unknown) (unknown) Stop: 07/12/22 18:28 (units unknown) (unknown) (unknown) (no date) (unknown) (unknown) Stop: 07/12/22 18:31 (units unknown) (unknown) (unknown) (no date) (unknown) (unknown) Stop: 07/12/22 19:25 (units unknown) (unknown) (unknown) (no date) (unknown) (unknown) Substance Use Type: does not use (units unknown) (unknown) (unknown) (no date) (unknown) (unknown) Surgical History (units unknown) (unknown) (unknown) (no date) (unknown) (unknown) Tactile disturbances ?> 1 = Very mild itching, pin and needles, burning, or (units unknown) (unknown) (unknown) (no date) (unknown) (unknown) Temperature 97.2 F L 07/12/22 16:10 (units unknown) (unknown) (unknown) (no date) (unknown) (unknown) Temperature 97.2 F L (units unknown) (unknown) (unknown) (no date) (unknown) (unknown) Thiamine HCl (Thiamine 100 Mg Tablet) 100 mg PO NOW ONE (units unknown) (unknown) (unknown) (no date) (unknown) (unknown) Thiamine HCl 200 mg/ Sodium (Chloride) 102 mls @ 408 mls/hr IV NOW ONE (units unknown) (unknown) (unknown) (no date) (unknown) (unknown) This is a 31-year-ol d female with history of alcohol abuse and appears to have (units unknown) (unknown) (unknown) (no date) (unknown) (unknown) Thyroid Stimulating Hormone Stat (units unknown) (unknown) (unknown) (no date) (unknown) (unknown) Time Seen by Provider: 07/12/22 17:05 (units unknown) (unknown) (unknown) (no date) (unknown) (unknown) Total Bilirubin (0.2-1.3) mg/dL (units unknown) (unknown) (unknown) (no date) (unknown) (unknown) Total Bilirubin 0.4 (0.2-1.3) mg/dL (units unknown) (unknown) (unknown) (no date) (unknown) (unknown) Total Protein (6.3-8.2) g/dL (units unknown) (unknown) (unknown) (no date) (unknown) (unknown) Total Protein 7.3 (6.3-8.2) g/dL (units unknown) (unknown) (unknown) (no date) (unknown) (unknown) Tremor ?> 1 = Not visible, but can be felt fingertip to fingertip (units unknown) (unknown) (unknown) (no date) (unknown) (unknown) U Benzodiazepines Scrn (Negative) (units unknown) (unknown) (unknown) (no date) (unknown) (unknown) U Benzodiazepines Scrn Negative (Negative) (units unknown) (unknown) (unknown) (no date) (unknown) (unknown) U Marijuana (THC) Screen (Negative) (units unknown) (unknown) (unknown) (no date) (unknown) (unknown) U Marijuana (THC) Screen Negative (Negative) (units unknown) (unknown) (unknown) (no date) (unknown) (unknown) U Methamphetamines Scrn (Negative) (units unknown) (unknown) (unknown) (no date) (unknown) (unknown) U Methamphetamines Scrn Negative (Negative) (units unknown) (unknown) (unknown) (no date) (unknown) (unknown) U Opiates 300ng/mL cut (Negative) (units unknown) (unknown) (unknown) (no date) (unknown) (unknown) U Opiates 300ng/mL cut Negative (Negative) (units unknown) (unknown) (unknown) (no date) (unknown) (unknown) U Tricyclic Antidepress (Negative) (units unknown) (unknown) (unknown) (no date) (unknown) (unknown) U Tricyclic Antidepress Negative (Negative) (units unknown) (unknown) (unknown) (no date) (unknown) (unknown) Ur Amphetamines Screen (Negative) (units unknown) (unknown) (unknown) (no date) (unknown) (unknown) Ur Amphetamines Screen Negative (Negative) (units unknown) (unknown) (unknown) (no date) (unknown) (unknown) Ur Barbiturates Screen (Negative) (units unknown) (unknown) (unknown) (no date) (unknown) (unknown) Ur Barbiturates Screen Negative (Negative) (units unknown) (unknown) (unknown) (no date) (unknown) (unknown) Ur Culture Indicated ? Specimen cultured (units unknown) (unknown) (unknown) (no date) (unknown) (unknown) Ur Culture Indicated? (units unknown) (unknown) (unknown) (no date) (unknown) (unknown) Ur MDMA Scrn (Ecstasy) (Negative) (units unknown) (unknown) (unknown) (no date) (unknown) (unknown) Ur MDMA Scrn (Ecstasy) Negative (Negative) (units unknown) (unknown) (unknown) (no date) (unknown) (unknown) Ur Oxycodone Screen (Negative) (units unknown) (unknown) (unknown) (no date) (unknown) (unknown) Ur Oxycodone Screen Negative (Negative) (units unknown) (unknown) (unknown) (no date) (unknown) (unknown) Ur Phencyclidine Scr n (Negative) (units unknown) (unknown) (unknown) (no date) (unknown) (unknown) Ur Phencyclidine Scr n Negative (Negative) (units unknown) (unknown) (unknown) (no date) (unknown) (unknown) Ur Squamous Epith Cells (0-5/HPF) (units unknown) (unknown) (unknown) (no date) (unknown) (unknown) Ur Squamous Epith Cells 1-5 /hpf (0-5/HPF) (units unknown) (unknown) (unknown) (no date) (unknown) (unknown) Urine Bacteria (None) (units unknown) (unknown) (unknown) (no date) (unknown) (unknown) Urine Bacteria Many (>30) H (None) (units unknown) (unknown) (unknown) (no date) (unknown) (unknown) Urine Cocaine Screen (Negative) (units unknown) (unknown) (unknown) (no date) (unknown) (unknown) Urine Cocaine Screen Negative (Negative) (units unknown) (unknown) (unknown) (no date) (unknown) (unknown) Urine Culture Stat (units unknown) (unknown) (unknown) (no date) (unknown) (unknown) Urine Dip (units unknown) (unknown) (unknown) (no date) (unknown) (unknown) Urine Drug Screen, Rapid Stat (units unknown) (unknown) (unknown) (no date) (unknown) (unknown) Urine Methadone Screen (Negative) (units unknown) (unknown) (unknown) (no date) (unknown) (unknown) Urine Methadone Screen Negative (Negative) (units unknown) (unknown) (unknown) (no date) (unknown) (unknown) Urine Microscopic Stat (units unknown) (unknown) (unknown) (no date) (unknown) (unknown) Urine RBC (0-5/HPF) (units unknown) (unknown) (unknown) (no date) (unknown) (unknown) Urine RBC 1-5/hpf (0-5/HPF) (units unknown) (unknown) (unknown) (no date) (unknown) (unknown) Urine Specific [place] 1.015 (units unknown) (unknown) (unknown) (no date) (unknown) (unknown) Urine WBC (0-5/HPF) (units unknown) (unknown) (unknown) (no date) (unknown) (unknown) Urine WBC 1-5/hpf (0-5/HPF) (units unknown) (unknown) (unknown) (no date) (unknown) (unknown) Urine microscopy wit h many bacteria, pending for culture, will treat for acute (units unknown) (unknown) (unknown) (no date) (unknown) (unknown) Visual disturbances ?> 1 = Very mild sensitivity (units unknown) (unknown) (unknown) (no date) (unknown) (unknown) Vital Signs - 8 hr (units unknown) (unknown) (unknown) (no date) (unknown) (unknown) Vital Signs (units unknown) (unknown) (unknown) (no date) (unknown) (unknown) Vital signs: (units unknown) (unknown) (unknown) (no date) (unknown) (unknown) WBC (4.5-11.0) X103/uL (units unknown) (unknown) (unknown) (no date) (unknown) (unknown) WBC 3.3 L (4.5-11.0) X103/uL (units unknown) (unknown) (unknown) (no date) (unknown) (unknown) [Embedded Image Not Available] (units unknown) (unknown) (unknown) (no date) (unknown) (unknown) [METOCLOPRAMIDE] (units unknown) (unknown) (unknown) (no date) (unknown) (unknown) acetaminophen 325 mg tablet 325 mg PO Q6H PRN pain #20 tabs 02/05/20 (units unknown) (unknown) (unknown) (no date) (unknown) (unknown) acetaminophen [Tylenol] 325 mg tablet (units unknown) (unknown) (unknown) (no date) (unknown) (unknown) alcohol in 300s, she was last here in the emergency department in May of (units unknown) (unknown) (unknown) (no date) (unknown) (unknown) alcohol intake frequency: 3 or more drinks per day (units unknown) (unknown) (unknown) (no date) (unknown) (unknown) alcohol intake: former (units unknown) (unknown) (unknown) (no date) (unknown) (unknown) and below (units unknown) (unknown) (unknown) (no date) (unknown) (unknown) and cooperative (units unknown) (unknown) (unknown) (no date) (unknown) (unknown) arrhythmia, or acute ischemic changes. (units unknown) (unknown) (unknown) (no date) (unknown) (unknown) at extension and states that she feels symptoms of alcohol withdrawal. Denies (units unknown) (unknown) (unknown) (no date) (unknown) (unknown) bpm with rightward axis and normal intervals. No STEMI, ST segment changes, (units unknown) (unknown) (unknown) (no date) (unknown) (unknown) current occupational exposures/hazards: Yes (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 with Pandemic ) (units unknown) (unknown) (unknown) (no date) (unknown) (unknown) cystitis without hematuria (units unknown) (unknown) (unknown) (no date) (unknown) (unknown) cystitis (units unknown) (unknown) (unknown) (no date) (unknown) (unknown) cystitis, she is p.o . tolerant, still pending lab work (units unknown) (unknown) (unknown) (no date) (unknown) (unknown) deliver since it is after 17:00 and the diet order was ordered at 17:30. Samira (units unknown) (unknown) (unknown) (no date) (unknown) (unknown) detox as well. (units unknown) (unknown) (unknown) (no date) (unknown) (unknown) diarrhea or current stool changes. (units unknown) (unknown) (unknown) (no date) (unknown) (unknown) diphenhydramine HCl 25 mg capsule 25 mg PO BEDTIME PRN insomnia #20 02/05/20 (units unknown) (unknown) (unknown) (no date) (unknown) (unknown) diphenhydramine HCl [Benadryl] 25 mg capsule (units unknown) (unknown) (unknown) (no date) (unknown) (unknown) docusate sodium 100 mg capsule 100 mg PO BID #30 caps 02/05/20 (units unknown) (unknown) (unknown) (no date) (unknown) (unknown) docusate sodium [Colace] 100 mg capsule (units unknown) (unknown) (unknown) (no date) (unknown) (unknown) draw her labs (units unknown) (unknown) (unknown) (no date) (unknown) (unknown) education level: college (units unknown) (unknown) (unknown) (no date) (unknown) (unknown) electrolyte abnormalities. 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[employer] (units unknown) (unknown) (unknown) (no date) (unknown) (unknown) fluid, EtOH, and CIWA, ordered 2 mg of IV lorazepam for patient's symptoms, (units unknown) (unknown) (unknown) (no date) (unknown) (unknown) for alcohol related complaints through 2019, and she presented to the [facility] (units unknown) (unknown) (unknown) (no date) (unknown) (unknown) from social work is aware and pending her lab work to arrange for inpatient (units unknown) (unknown) (unknown) (no date) (unknown) (unknown) her urine microscopy came back positive for many bacteria, will treat for acute (units unknown) (unknown) (unknown) (no date) (unknown) (unknown) household members: spouse and children (units unknown) (unknown) (unknown) (no date) (unknown) (unknown) hydrocodone [HYDROCODONE] AdvReac Unknown VOMITING Verified 07/12/22 16:18 (units unknown) (unknown) (unknown) (no date) (unknown) (unknown) ibuprofen 600 mg Tablet (units unknown) (unknown) (unknown) (no date) (unknown) (unknown) ibuprofen 600 mg tablet 600 mg PO Q6HR PRN Pain, Mild 07/04/20 (units unknown) (unknown) (unknown) (no date) (unknown) (unknown) injuries, denies chance of , denies any other ingestions, is pleasant, (units unknown) (unknown) (unknown) (no date) (unknown) (unknown) intoxicated endorses symptoms of alcohol withdrawal. (units unknown) (unknown) (unknown) (no date) (unknown) (unknown) intoxicated, pleasant, interactive and comfortable although active and fidgeting (units unknown) (unknown) (unknown) (no date) (unknown) (unknown) is 89, COVID PCR wa s negative, drug screen is negative for all tested agents, (units unknown) (unknown) (unknown) (no date) (unknown) (unknown) limited history currently due to intoxication. She states that she is recently (units unknown) (unknown) (unknown) (no date) (unknown) (unknown) lorazepam at 2 mg fo r this. (units unknown) (unknown) (unknown) (no date) (unknown) (unknown) marital status: (units unknown) (unknown) (unknown) (no date) (unknown) (unknown) metoclopramide Allergy Mild RASH/HIVES Verified 07/12/22 16:18 (units unknown) (unknown) (unknown) (no date) (unknown) (unknown) mild anemia but improved from her prior with H+H of 11.5 and 35.3, no evidence (units unknown) (unknown) (unknown) (no date) (unknown) (unknown) nausea vomiting or abdominal pain at this time. Denies any vomiting home or (units unknown) (unknown) (unknown) (no date) (unknown) (unknown) number of children: 1 (units unknown) (unknown) (unknown) (no date) (unknown) (unknown) numbness (units unknown) (unknown) (unknown) (no date) (unknown) (unknown) occupational status: employed (units unknown) (unknown) (unknown) (no date) (unknown) (unknown) of bleeding anywhere , CMP (units unknown) (unknown) (unknown) (no date) (unknown) (unknown) ondansetron 4 mg disintegrating 4 mg PO Q6H PRN nausea and 06/12/22 (units unknown) (unknown) (unknown) (no date) (unknown) (unknown) ondansetron 4 mg disintegrating 4 mg PO Q8H PRN nausea and 01/01/20 (units unknown) (unknown) (unknown) (no date) (unknown) (unknown) ondansetron 4 mg disintegrating 4 mg PO Q8H PRN nausea and 02/05/20 (units unknown) (unknown) (unknown) (no date) (unknown) (unknown) ondansetron 4 mg tablet,disintegrating (units unknown) (unknown) (unknown) (no date) (unknown) (unknown) ordered p.o. Ativan for her symptoms and ask our into call lab to come up and (units unknown) (unknown) (unknown) (no date) (unknown) (unknown) prenat.vits,otis,min- i thang-folic 1 tab PO DAILY 12/30/19 07/03/20 (units unknown) (unknown) (unknown) (no date) (unknown) (unknown) prenat.vits,otis,min- i thang-folic Tablet (units unknown) (unknown) (unknown) (no date) (unknown) (unknown) relapsed due to a divorce with her . She used to be a frequent visitor (units unknown) (unknown) (unknown) (no date) (unknown) (unknown) second hand exposure : No (growing up as a child - not currently) (units unknown) (unknown) (unknown) (no date) (unknown) (unknown) seeking help with he r intoxication and wishes to go to detox. She is currently (units unknown) (unknown) (unknown) (no date) (unknown) (unknown) significant tremor o r tongue fasciculation, she has a mild tremor with her arms (units unknown) (unknown) (unknown) (no date) (unknown) (unknown) social work and orders are pending (units unknown) (unknown) (unknown) (no date) (unknown) (unknown) special renee needs: No (units unknown) (unknown) (unknown) (no date) (unknown) (unknown) substance abuse, alcohol intoxication, psychosis, mood disorder, depression (units unknown) (unknown) (unknown) (no date) (unknown) (unknown) substance use type: does not use (units unknown) (unknown) (unknown) (no date) (unknown) (unknown) tablet vomiting #14 tabs (units unknown) (unknown) (unknown) (no date) (unknown) (unknown) tablet vomiting #20 tabs (units unknown) (unknown) (unknown) (no date) (unknown) (unknown) tablet vomiting #30 tabs (units unknown) (unknown) (unknown) (no date) (unknown) (unknown) tenderness or exquisite tenderness with exam. (units unknown) (unknown) (unknown) (no date) (unknown) (unknown) that she drinks vodk a and admits to drinking heavily today, states that she took (units unknown) (unknown) (unknown) (no date) (unknown) (unknown) the bottle upside down and started checking from it. She denies any recent (units unknown) (unknown) (unknown) (no date) (unknown) (unknown) thyroid studies are still pending. No significant findings to her CMP. No (units unknown) (unknown) (unknown) (no date) (unknown) (unknown) tramadol 50 mg table t 50 mg PO Q6H PRN pain #10 tabs 06/12/22 (units unknown) (unknown) (unknown) (no date) (unknown) (unknown) tramadol 50 mg tablet (units unknown) (unknown) (unknown) (no date) (unknown) (unknown) tremors, no tachycardia, her CIWA is currently 10, ordered another p.o. dose of (units unknown) (unknown) (unknown) (no date) (unknown) (unknown) well as prior record s if available. (units unknown) (unknown) (unknown) (no date) (unknown) (unknown) wheezing, stridor, o r abnormal breath sounds. No retractions or tachypnea. (units unknown) (unknown) Result panel 2179 (unknown) (no date) (unknown) (unknown) (no value) (units unknown) (unknown) (unknown) (no date) (unknown) (unknown) (1-3) #30 tabs (units unknown) (unknown) (unknown) (no date) (unknown) (unknown) (Benadryl) caps (units unknown) (unknown) (unknown) (no date) (unknown) (unknown) (Colace) (units unknown) (unknown) (unknown) (no date) (unknown) (unknown) (Tylenol) (units unknown) (unknown) (unknown) (no date) (unknown) (unknown) [id number] (units unknown) (unknown) (unknown) (no date) (unknown) (unknown) 07/12/22 07/12/22 07/12/22 Range/Units (units unknown) (unknown) (unknown) (no date) (unknown) (unknown) 07/12/22 07/12/22 Range/Units (units unknown) (unknown) (unknown) (no date) (unknown) (unknown) 07/12/22 16:28 (units unknown) (unknown) (unknown) (no date) (unknown) (unknown) 07/12/22 16:32 (units unknown) (unknown) (unknown) (no date) (unknown) (unknown) 07/12/22 18:28 (units unknown) (unknown) (unknown) (no date) (unknown) (unknown) 07/12/22 19:15 (units unknown) (unknown) (unknown) (no date) (unknown) (unknown) 07/12/22 (units unknown) (unknown) (unknown) (no date) (unknown) (unknown) 1 tab PO DAILY (units unknown) (unknown) (unknown) (no date) (unknown) (unknown) 100 mg PO BID Qty: 3 0 0RF (units unknown) (unknown) (unknown) (no date) (unknown) (unknown) 16:10 07/12/22 (units unknown) (unknown) (unknown) (no date) (unknown) (unknown) 16:32 16:32 16:32 (units unknown) (unknown) (unknown) (no date) (unknown) (unknown) 1836 patient still does not have an IV, has not received any IV fluid her (units unknown) (unknown) (unknown) (no date) (unknown) (unknown) 18:53 (units unknown) (unknown) (unknown) (no date) (unknown) (unknown) 1900 still no IV, patient is p.o. challenging, she received her p.o. lorazepam, (units unknown) (unknown) (unknown) (no date) (unknown) (unknown) 1930, patient now feels depressed, she is lying in bed, feeling bad, has (units unknown) (unknown) (unknown) (no date) (unknown) (unknown) 19:15 19:15 (units unknown) (unknown) (unknown) (no date) (unknown) (unknown) 1999 patient is feeling better now, her lab work is starting to return and ETOH (units unknown) (unknown) (unknown) (no date) (unknown) (unknown) 2002 patient request s to take her home dosing of Seroquel 300 mg, this is (units unknown) (unknown) (unknown) (no date) (unknown) (unknown) 2022 with similar symptoms. She comes in complaining of needing help, states (units unknown) (unknown) (unknown) (no date) (unknown) (unknown) 25 mg PO BEDTIME PRN (Reason: insomnia) Qty: 20 0RF (units unknown) (unknown) (unknown) (no date) (unknown) (unknown) 325 mg PO Q6H PRN (Reason: pain) Qty: 20 0RF (units unknown) (unknown) (unknown) (no date) (unknown) (unknown) 4 mg PO Q6H PRN (Reason: nausea and vomiting) Qty: 14 0RF (units unknown) (unknown) (unknown) (no date) (unknown) (unknown) 4 mg PO Q8H PRN (Reason: nausea and vomiting) Qty: 20 0RF (units unknown) (unknown) (unknown) (no date) (unknown) (unknown) 4 mg PO Q8H PRN (Reason: nausea and vomiting) Qty: 30 0RF (units unknown) (unknown) (unknown) (no date) (unknown) (unknown) 50 mg PO Q6H PRN (Reason: pain) Qty: 10 0RF (units unknown) (unknown) (unknown) (no date) (unknown) (unknown) 600 mg PO Q6HR PRN (Reason: Pain, Mild (1-3)) Qty: 30 0RF (units unknown) (unknown) (unknown) (no date) (unknown) (unknown) 9 points (units unknown) (unknown) (unknown) (no date) (unknown) (unknown) ALT (<35) IU/L (units unknown) (unknown) (unknown) (no date) (unknown) (unknown) ALT 21 (<35) IU/L (units unknown) (unknown) (unknown) (no date) (unknown) (unknown) AST (14-36) IU/L (units unknown) (unknown) (unknown) (no date) (unknown) (unknown) AST 67 H (14-36) IU/L (units unknown) (unknown) (unknown) (no date) (unknown) (unknown) Acetaminophen < 10 (10-30) ug/mL (units unknown) (unknown) (unknown) (no date) (unknown) (unknown) Acetaminophen (10-30 ) ug/mL (units unknown) (unknown) (unknown) (no date) (unknown) (unknown) Acetaminophen Stat (units unknown) (unknown) (unknown) (no date) (unknown) (unknown) Age/Sex: 31 / F (units unknown) (unknown) (unknown) (no date) (unknown) (unknown) Agitation ?> 2 = (More severe symptoms) (units unknown) (unknown) (unknown) (no date) (unknown) (unknown) Albumin (3.5-5.0) g/dL (units unknown) (unknown) (unknown) (no date) (unknown) (unknown) Albumin 4.3 (3.5-5.0 ) g/dL (units unknown) (unknown) (unknown) (no date) (unknown) (unknown) Albumin/Globulin Ratio (1.0-2.8) (units unknown) (unknown) (unknown) (no date) (unknown) (unknown) Albumin/Globulin Ratio 1.4 (1.0-2.8) (units unknown) (unknown) (unknown) (no date) (unknown) (unknown) Alcohol use disorder , Acute cystitis (units unknown) (unknown) (unknown) (no date) (unknown) (unknown) Alcoholism (units unknown) (unknown) (unknown) (no date) (unknown) (unknown) Alkaline Phosphatase (38-126) U/L (units unknown) (unknown) (unknown) (no date) (unknown) (unknown) Alkaline Phosphatase 98 (38-126) U/L (units unknown) (unknown) (unknown) (no date) (unknown) (unknown) Allergies (units unknown) (unknown) (unknown) (no date) (unknown) (unknown) Allergy/AdvReac Type Severity Reaction Status Date / Time (units unknown) (unknown) (unknown) (no date) (unknown) (unknown) Anemia (-2018) (units unknown) (unknown) (unknown) (no date) (unknown) (unknown) Anxiety ?> 2 = (More severe symptoms) (units unknown) (unknown) (unknown) (no date) (unknown) (unknown) Auditory disturbance s ?> 1 = Very mild harshness or ability to frighten (units unknown) (unknown) (unknown) (no date) (unknown) (unknown) BUN (7-17) mg/dL (units unknown) (unknown) (unknown) (no date) (unknown) (unknown) BUN 9 (7-17) mg/dL (units unknown) (unknown) (unknown) (no date) (unknown) (unknown) BUN/Creatinine Ratio (6-22) (units unknown) (unknown) (unknown) (no date) (unknown) (unknown) BUN/Creatinine Ratio 11.0 (6-22) (units unknown) (unknown) (unknown) (no date) (unknown) (unknown) Baso # (Auto) (0-100 ) /uL (units unknown) (unknown) (unknown) (no date) (unknown) (unknown) Baso # (Auto) 0 (0-100) /uL (units unknown) (unknown) (unknown) (no date) (unknown) (unknown) Baso % (Auto) (0-2) % (units unknown) (unknown) (unknown) (no date) (unknown) (unknown) Baso % (Auto) 0.9 (0-2) % (units unknown) (unknown) (unknown) (no date) (unknown) (unknown) Bedside Urine Bilirubin - Negative (units unknown) (unknown) (unknown) (no date) (unknown) (unknown) Bedside Urine Glucos e Negative (units unknown) (unknown) (unknown) (no date) (unknown) (unknown) Bedside Urine Ketone - Negative (units unknown) (unknown) (unknown) (no date) (unknown) (unknown) Bedside Urine Leukocytes - Negative (units unknown) (unknown) (unknown) (no date) (unknown) (unknown) Bedside Urine Nitrit e + Positive (units unknown) (unknown) (unknown) (no date) (unknown) (unknown) Bedside Urine Occult Blood - Negative (units unknown) (unknown) (unknown) (no date) (unknown) (unknown) Bedside Urine Protei n - Negative (units unknown) (unknown) (unknown) (no date) (unknown) (unknown) Bedside Urine Urobilinogen - Negative (units unknown) (unknown) (unknown) (no date) (unknown) (unknown) Bedside Urine pH 6.0 (units unknown) (unknown) (unknown) (no date) (unknown) (unknown) Blood Pressure 112/6 2 07/12/22 16:10 (units unknown) (unknown) (unknown) (no date) (unknown) (unknown) Blood Pressure 112/62 (units unknown) (unknown) (unknown) (no date) (unknown) (unknown) Blood Pressure [Left Arm] 100/59 L (units unknown) (unknown) (unknown) (no date) (unknown) (unknown) CIWA is now worse an d she has tremors, anxiety is worsening and agitation, (units unknown) (unknown) (unknown) (no date) (unknown) (unknown) CIWA-Ar for Alcohol Withdrawal from [email or web address] on 07/12/2022 (units unknown) (unknown) (unknown) (no date) (unknown) (unknown) COVID19 -Nasal RAPID/Pre-Proc Stat (units unknown) (unknown) (unknown) (no date) (unknown) (unknown) Calcium (8.4-10.2) mg/dL (units unknown) (unknown) (unknown) (no date) (unknown) (unknown) Calcium 8.0 L (8.4-10.2) mg/dL (units unknown) (unknown) (unknown) (no date) (unknown) (unknown) Carbon Dioxide (22-32) mmol/L (units unknown) (unknown) (unknown) (no date) (unknown) (unknown) Carbon Dioxide 23 (22-32) mmol/L (units unknown) (unknown) (unknown) (no date) (unknown) (unknown) Cardiovascular: regular rate and rhythm, no peripheral edema, warm extremities (units unknown) (unknown) (unknown) (no date) (unknown) (unknown) Cephalexin HCl (Cephalexin 250 Mg Capsule) 500 mg PO Q6H SANDY (units unknown) (unknown) (unknown) (no date) (unknown) (unknown) Chief Complaint: Alcohol intoxication, seeking detox (units unknown) (unknown) (unknown) (no date) (unknown) (unknown) Chief Complaint: Toxicology Problem (units unknown) (unknown) (unknown) (no date) (unknown) (unknown) Chloride (98-107) mmol/L (units unknown) (unknown) (unknown) (no date) (unknown) (unknown) Chloride 104 (98-107 ) mmol/L (units unknown) (unknown) (unknown) (no date) (unknown) (unknown) Clinical Impression: (units unknown) (unknown) (unknown) (no date) (unknown) (unknown) Clinical decision rules or scores evaluated: CIWA of 9 at 1753 (units unknown) (unknown) (unknown) (no date) (unknown) (unknown) Complete Blood Count AUTO DIFF Stat (units unknown) (unknown) (unknown) (no date) (unknown) (unknown) Comprehensive Metabolic Panel Stat (units unknown) (unknown) (unknown) (no date) (unknown) (unknown) 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 (units unknown) (unknown) (unknown) (no date) (unknown) (unknown) Course of care: Patient is a difficult IV stick, ordered IV with lab work, (units unknown) (unknown) (unknown) (no date) (unknown) (unknown) Course (units unknown) (unknown) (unknown) (no date) (unknown) (unknown) Creatinine (0.52-1.04) mg/dL (units unknown) (unknown) (unknown) (no date) (unknown) (unknown) Creatinine 0.82 (0.52-1.04) mg/dL (units unknown) (unknown) (unknown) (no date) (unknown) (unknown) : 1990 Acct:[id number] (units unknown) (unknown) (unknown) (no date) (unknown) (unknown) Date of Service: 07/12/22 (units unknown) (unknown) (unknown) (no date) (unknown) (unknown) Departure (units unknown) (unknown) (unknown) (no date) (unknown) (unknown) Differential diagnoses include but are not limited to: Alcohol withdrawal, (units unknown) (unknown) (unknown) (no date) (unknown) (unknown) Discharge Plan (units unknown) (unknown) (unknown) (no date) (unknown) (unknown) Discontinued Medications (units unknown) (unknown) (unknown) (no date) (unknown) (unknown) Documented By: KB (units unknown) (unknown) (unknown) (no date) (unknown) (unknown) Documented By: OW (units unknown) (unknown) (unknown) (no date) (unknown) (unknown) ECG Data (units unknown) (unknown) (unknown) (no date) (unknown) (unknown) ED Orders (units unknown) (unknown) (unknown) (no date) (unknown) (unknown) EKG independently reviewed by myself at 1830 reveals normal sinus rhythm at 72 (units unknown) (unknown) (unknown) (no date) (unknown) (unknown) EKG-12 Lead Stat (units unknown) (unknown) (unknown) (no date) (unknown) (unknown) ER Physician: Juliet Paz (units unknown) (unknown) (unknown) (no date) (unknown) (unknown) Emergency Report (units unknown) (unknown) (unknown) (no date) (unknown) (unknown) Eos # (Auto) (0-450) /uL (units unknown) (unknown) (unknown) (no date) (unknown) (unknown) Eos # (Auto) 0 (0-450) /uL (units unknown) (unknown) (unknown) (no date) (unknown) (unknown) Eos % (Auto) (2-4) % (units unknown) (unknown) (unknown) (no date) (unknown) (unknown) Eos % (Auto) 0.3 L (2-4) % (units unknown) (unknown) (unknown) (no date) (unknown) (unknown) Esterase (units unknown) (unknown) (unknown) (no date) (unknown) (unknown) Estimated GFR > 60 (>60) mL/min (units unknown) (unknown) (unknown) (no date) (unknown) (unknown) Estimated GFR (>60) mL/min (units unknown) (unknown) (unknown) (no date) (unknown) (unknown) Ethanol (ETOH) Stat (units unknown) (unknown) (unknown) (no date) (unknown) (unknown) Ethyl Alcohol ( - 10 ) mg/dL (units unknown) (unknown) (unknown) (no date) (unknown) (unknown) Ethyl Alcohol 338 H ( - 10) mg/dL (units unknown) (unknown) (unknown) (no date) (unknown) (unknown) Exam Narrative: (units unknown) (unknown) (unknown) (no date) (unknown) (unknown) Exam (units unknown) (unknown) (unknown) (no date) (unknown) (unknown) Family History (units unknown) (unknown) (unknown) (no date) (unknown) (unknown) Family/Other Alcoholism (units unknown) (unknown) (unknown) (no date) (unknown) (unknown) Family/Other Diabete s mellitus (units unknown) (unknown) (unknown) (no date) (unknown) (unknown) Father Alcoholism (units unknown) (unknown) (unknown) (no date) (unknown) (unknown) Tonia Schneider MD [Primary Care Provider] (units unknown) (unknown) (unknown) (no date) (unknown) (unknown) Folic Acid (Folic Acid 1 Mg Tablet) 1 mg PO DAILY SANDY (units unknown) (unknown) (unknown) (no date) (unknown) (unknown) Free T4, Direct Thyroxine Stat (units unknown) (unknown) (unknown) (no date) (unknown) (unknown) GI: abdomen soft, nontender to palpation, nondistended, without masses, rebound (units unknown) (unknown) (unknown) (no date) (unknown) (unknown) General (units unknown) (unknown) (unknown) (no date) (unknown) (unknown) General: cooperative , comfortable, in no acute distress, well groomed, appears (units unknown) (unknown) (unknown) (no date) (unknown) (unknown) Globulin (1.7-4.1) g/dL (units unknown) (unknown) (unknown) (no date) (unknown) (unknown) Globulin 3.0 (1.7-4.1) g/dL (units unknown) (unknown) (unknown) (no date) (unknown) (unknown) Glucose (70-100) mg/dL (units unknown) (unknown) (unknown) (no date) (unknown) (unknown) Glucose 111 H (70-100) mg/dL (units unknown) (unknown) (unknown) (no date) (unknown) (unknown) Grandfather Smoker (units unknown) (unknown) (unknown) (no date) (unknown) (unknown) Grandfather Unknown whether patient has any health problems (units unknown) (unknown) (unknown) (no date) (unknown) (unknown) Grandmother Diabetes mellitus (units unknown) (unknown) (unknown) (no date) (unknown) (unknown) Grandmother Hypoglycemia (units unknown) (unknown) (unknown) (no date) (unknown) (unknown) H/O dilation and curettage (-12/14/16) (units unknown) (unknown) (unknown) (no date) (unknown) (unknown) H/O wisdom tooth extraction () (units unknown) (unknown) (unknown) (no date) (unknown) (unknown) HEENT: symmetrical facial expressions, dry mucous membranes (units unknown) (unknown) (unknown) (no date) (unknown) (unknown) HPI - Alcohol (units unknown) (unknown) (unknown) (no date) (unknown) (unknown) HPI narrative: (units unknown) (unknown) (unknown) (no date) (unknown) (unknown) Hct (36-46) % (units unknown) (unknown) (unknown) (no date) (unknown) (unknown) Hct 35.3 L (36-46) % (units unknown) (unknown) (unknown) (no date) (unknown) (unknown) Headache/fullness in head ?> 1 = Very mild (units unknown) (unknown) (unknown) (no date) (unknown) (unknown) Hgb (12.0-16.0) g/dL (units unknown) (unknown) (unknown) (no date) (unknown) (unknown) Hgb 11.5 L (12.0-16.0) g/dL (units unknown) (unknown) (unknown) (no date) (unknown) (unknown) History of Present Illness (units unknown) (unknown) (unknown) (no date) (unknown) (unknown) Home Medications (units unknown) (unknown) (unknown) (no date) (unknown) (unknown) I have independently reviewed the patient's vital signs and nursing notes as (units unknown) (unknown) (unknown) (no date) (unknown) (unknown) INPUTS: (units unknown) (unknown) (unknown) (no date) (unknown) (unknown) Independent historian: Patient (units unknown) (unknown) (unknown) (no date) (unknown) (unknown) Initial Vital Signs (units unknown) (unknown) (unknown) (no date) (unknown) (unknown) Initial Vital Signs: (units unknown) (unknown) (unknown) (no date) (unknown) (unknown) Insomnia (units unknown) (unknown) (unknown) (no date) (unknown) (unknown) Interpretation: (units unknown) (unknown) (unknown) (no date) (unknown) (unknown) [address] [address] (units unknown) (unknown) (unknown) (no date) (unknown) (unknown) Lab Data (units unknown) (unknown) (unknown) (no date) (unknown) (unknown) Lab Results (units unknown) (unknown) (unknown) (no date) (unknown) (unknown) Labs: (units unknown) (unknown) (unknown) (no date) (unknown) (unknown) Last Admin: 07/12/22 18:39 Dose: 4 mg (units unknown) (unknown) (unknown) (no date) (unknown) (unknown) Last Admin: 07/12/22 18:40 Dose: 1 mg (units unknown) (unknown) (unknown) (no date) (unknown) (unknown) Last Admin: 07/12/22 18:56 Dose: Not Given (units unknown) (unknown) (unknown) (no date) (unknown) (unknown) Lorazepam (Lorazepam 0.5 Mg Tablet) 1 mg PO NOW ONE (units unknown) (unknown) (unknown) (no date) (unknown) (unknown) Lorazepam (Lorazepam 0.5 Mg Tablet) 2 mg PO NOW ONE (units unknown) (unknown) (unknown) (no date) (unknown) (unknown) Lorazepam (Lorazepam 2 Mg/Ml Inj) 2 mg IV NOW ONE (units unknown) (unknown) (unknown) (no date) (unknown) (unknown) Lymph # (Auto) (8359-8466) /uL (units unknown) (unknown) (unknown) (no date) (unknown) (unknown) Lymph # (Auto) 1700 (2509-9938) /uL (units unknown) (unknown) (unknown) (no date) (unknown) (unknown) Lymph % (Auto) (25-40) % (units unknown) (unknown) (unknown) (no date) (unknown) (unknown) Lymph % (Auto) 50.6 H (25-40) % (units unknown) (unknown) (unknown) (no date) (unknown) (unknown) MCH (26-34) PG (units unknown) (unknown) (unknown) (no date) (unknown) (unknown) MCH 26.0 (26-34) PG (units unknown) (unknown) (unknown) (no date) (unknown) (unknown) MCHC (30-36) % (units unknown) (unknown) (unknown) (no date) (unknown) (unknown) MCHC 32.7 (30-36) % (units unknown) (unknown) (unknown) (no date) (unknown) (unknown) MCV (80-100) fL (units unknown) (unknown) (unknown) (no date) (unknown) (unknown) MCV 79.5 L (80-100) fL (units unknown) (unknown) (unknown) (no date) (unknown) (unknown) MDM - Alcohol (units unknown) (unknown) (unknown) (no date) (unknown) (unknown) MDM Narrative (units unknown) (unknown) (unknown) (no date) (unknown) (unknown) MIPS: This encounter doesn't have any diagnosis' associated with MIPS criteria. (units unknown) (unknown) (unknown) (no date) (unknown) (unknown) MSK: moves all extremities, neurovascularly intact, no weakness, normal tone no (units unknown) (unknown) (unknown) (no date) (unknown) (unknown) Medical History (units unknown) (unknown) (unknown) (no date) (unknown) (unknown) Medical decision making narrative: (units unknown) (unknown) (unknown) (no date) (unknown) (unknown) Medication Instructions Recorded Confirmed (units unknown) (unknown) (unknown) (no date) (unknown) (unknown) Medication Instructions Recorded (units unknown) (unknown) (unknown) (no date) (unknown) (unknown) Menometrorrhagia (units unknown) (unknown) (unknown) (no date) (unknown) (unknown) Mode of arrival: Ambulatory (units unknown) (unknown) (unknown) (no date) (unknown) (unknown) [place] # (Auto) (0-900 ) /uL (units unknown) (unknown) (unknown) (no date) (unknown) (unknown) [place] # (Auto) 100 (0-900) /uL (units unknown) (unknown) (unknown) (no date) (unknown) (unknown) [place] % (Auto) (3-14) % (units unknown) (unknown) (unknown) (no date) (unknown) (unknown) [place] % (Auto) 2.7 L (3-14) % (units unknown) (unknown) (unknown) (no date) (unknown) (unknown) Mother Diabetes mellitus (units unknown) (unknown) (unknown) (no date) (unknown) (unknown) Narrative (units unknown) (unknown) (unknown) (no date) (unknown) (unknown) Nausea/vomiting ?> 0 = No nausea and no vomiting (units unknown) (unknown) (unknown) (no date) (unknown) (unknown) Neuro: normal speech and cognition, A+O x3, ambulatory, clear speech (units unknown) (unknown) (unknown) (no date) (unknown) (unknown) Neut # (Auto) (8805-1343) /uL (units unknown) (unknown) (unknown) (no date) (unknown) (unknown) Neut # (Auto) 1500 (6690-9539) /uL (units unknown) (unknown) (unknown) (no date) (unknown) (unknown) Neut % (Auto) (50-75 ) % (units unknown) (unknown) (unknown) (no date) (unknown) (unknown) Neut % (Auto) 45.5 L (50-75) % (units unknown) (unknown) (unknown) (no date) (unknown) (unknown) No Action (units unknown) (unknown) (unknown) (no date) (unknown) (unknown) Obesity (units unknown) (unknown) (unknown) (no date) (unknown) (unknown) Ondansetron HCl (Ondansetron 4 Mg Odt) 4 mg SL NOW ONE (units unknown) (unknown) (unknown) (no date) (unknown) (unknown) Ondansetron HCl (Ondansetron 4 Mg/2 Ml Inj) 4 mg IV Q6HR PRN (units unknown) (unknown) (unknown) (no date) (unknown) (unknown) Ordered: (units unknown) (unknown) (unknown) (no date) (unknown) (unknown) Orders (units unknown) (unknown) (unknown) (no date) (unknown) (unknown) Orientation/clouding of sensorium ?> 0 = Oriented, can do serial additions (units unknown) (unknown) (unknown) (no date) (unknown) (unknown) Overweight (units unknown) (unknown) (unknown) (no date) (unknown) (unknown) Oxygen Delivery Method Room Air 07/12/22 16:10 (units unknown) (unknown) (unknown) (no date) (unknown) (unknown) Oxygen Delivery Method Room Air Room Air (units unknown) (unknown) (unknown) (no date) (unknown) (unknown) PRN Reason: Nausea And Vomiting (units unknown) (unknown) (unknown) (no date) (unknown) (unknown) Paroxysmal sweats ?> 0 = No sweat visible (units unknown) (unknown) (unknown) (no date) (unknown) (unknown) Patient Disposition[facility] (units unknown) (unknown) (unknown) (no date) (unknown) (unknown) Patient History (units unknown) (unknown) (unknown) (no date) (unknown) (unknown) Patient: Sarah Connors MR#: M (units unknown) (unknown) (unknown) (no date) (unknown) (unknown) Patients with scores >= may require medication for withdrawal. (units unknown) (unknown) (unknown) (no date) (unknown) (unknown) Pertinent lab findings reviewed: CBC is pertinent for mild leukopenia of 3.3, (units unknown) (unknown) (unknown) (no date) (unknown) (unknown) Plt Count (150-400) X103/uL (units unknown) (unknown) (unknown) (no date) (unknown) (unknown) Plt Count 226 (150-400) X103/uL (units unknown) (unknown) (unknown) (no date) (unknown) (unknown) Point of Care Testing (units unknown) (unknown) (unknown) (no date) (unknown) (unknown) Potassium (3.4-5.1) mmol/L (units unknown) (unknown) (unknown) (no date) (unknown) (unknown) Potassium 3.9 (3.4-5.1) mmol/L (units unknown) (unknown) (unknown) (no date) (unknown) (unknown) Test Results Negative (units unknown) (unknown) (unknown) (no date) (unknown) (unknown) Prescriptions: (units unknown) (unknown) (unknown) (no date) (unknown) (unknown) Previous Rx's (units unknown) (unknown) (unknown) (no date) (unknown) (unknown) Psych: mental status is grossly normal, congruent mood, normal affect, pleasant (units unknown) (unknown) (unknown) (no date) (unknown) (unknown) Pulse Oximetry 99 07/12/22 16:10 (units unknown) (unknown) (unknown) (no date) (unknown) (unknown) Pulse Oximetry 99 99 (units unknown) (unknown) (unknown) (no date) (unknown) (unknown) Pulse Rate 82 07/12/22 16:10 (units unknown) (unknown) (unknown) (no date) (unknown) (unknown) Pulse Rate 82 86 (units unknown) (unknown) (unknown) (no date) (unknown) (unknown) Questions are addressed and there is agreement with the plan and for follow-up. (units unknown) (unknown) (unknown) (no date) (unknown) (unknown) RBC (4.0-5.2) X106/uL (units unknown) (unknown) (unknown) (no date) (unknown) (unknown) RBC 4.44 (4.0-5.2) X106/uL (units unknown) (unknown) (unknown) (no date) (unknown) (unknown) RDW (11.6-14.8) % (units unknown) (unknown) (unknown) (no date) (unknown) (unknown) RDW 17.3 H (11.6-14.8) % (units unknown) (unknown) (unknown) (no date) (unknown) (unknown) RESULT SUMMARY: (units unknown) (unknown) (unknown) (no date) (unknown) (unknown) ROS Unobtainable: Al l systems reviewed + are unremarkable except as noted in HPI (units unknown) (unknown) (unknown) (no date) (unknown) (unknown) Referrals: (units unknown) (unknown) (unknown) (no date) (unknown) (unknown) Related Data (units unknown) (unknown) (unknown) (no date) (unknown) (unknown) Respiratory Rate 14 07/12/22 16:10 (units unknown) (unknown) (unknown) (no date) (unknown) (unknown) Respiratory Rate 14 22 (units unknown) (unknown) (unknown) (no date) (unknown) (unknown) Respiratory: normal effort, able to speak in complete sentences, without (units unknown) (unknown) (unknown) (no date) (unknown) (unknown) Review of Systems (units unknown) (unknown) (unknown) (no date) (unknown) (unknown) Reviewed vitals sign s and nursing notes. (units unknown) (unknown) (unknown) (no date) (unknown) (unknown) S/P myringotomy with insertion of tube (units unknown) (unknown) (unknown) (no date) (unknown) (unknown) SARS-CoV-2 (PCR) (Negative) (units unknown) (unknown) (unknown) (no date) (unknown) (unknown) SARS-CoV-2 (PCR) Negative (Negative) (units unknown) (unknown) (unknown) (no date) (unknown) (unknown) (spontaneous vaginal delivery) (-09/05/18) (units unknown) (unknown) (unknown) (no date) (unknown) (unknown) Salicylate Stat (units unknown) (unknown) (unknown) (no date) (unknown) (unknown) Salicylates < 1.0 (<20) mg/dL (units unknown) (unknown) (unknown) (no date) (unknown) (unknown) Salicylates (<20) mg/dL (units unknown) (unknown) (unknown) (no date) (unknown) (unknown) She was given a couple water, a diet order was ordered however they may not (units unknown) (unknown) (unknown) (no date) (unknown) (unknown) Signed By: (units unknown) (unknown) (unknown) (no date) (unknown) (unknown) Skin: brisk capillar y refill, without pallor or erythema (units unknown) (unknown) (unknown) (no date) (unknown) (unknown) Smoker (units unknown) (unknown) (unknown) (no date) (unknown) (unknown) Smoking Status: Former smoker (units unknown) (unknown) (unknown) (no date) (unknown) (unknown) Social History (units unknown) (unknown) (unknown) (no date) (unknown) (unknown) Social consideration s that may affect disposition: none (units unknown) (unknown) (unknown) (no date) (unknown) (unknown) Sodium (137-145) mmol/L (units unknown) (unknown) (unknown) (no date) (unknown) (unknown) Sodium 140 (137-145) mmol/L (units unknown) (unknown) (unknown) (no date) (unknown) (unknown) Sodium Chloride (Normal Saline 0.9%) 1,000 mls @ 1,000 mls/hr IV BOLUS ONE (units unknown) (unknown) (unknown) (no date) (unknown) (unknown) Source: patient (units unknown) (unknown) (unknown) (no date) (unknown) (unknown) Stated Complaint: Stress/Depression (units unknown) (unknown) (unknown) (no date) (unknown) (unknown) Stop: 07/12/22 17:33 (units unknown) (unknown) (unknown) (no date) (unknown) (unknown) Stop: 07/12/22 17:45 (units unknown) (unknown) (unknown) (no date) (unknown) (unknown) Stop: 07/12/22 18:28 (units unknown) (unknown) (unknown) (no date) (unknown) (unknown) Stop: 07/12/22 18:31 (units unknown) (unknown) (unknown) (no date) (unknown) (unknown) Stop: 07/12/22 19:25 (units unknown) (unknown) (unknown) (no date) (unknown) (unknown) Substance Use Type: does not use (units unknown) (unknown) (unknown) (no date) (unknown) (unknown) Surgical History (units unknown) (unknown) (unknown) (no date) (unknown) (unknown) Tactile disturbances ?> 1 = Very mild itching, pin and needles, burning, or (units unknown) (unknown) (unknown) (no date) (unknown) (unknown) Temperature 97.2 F L 07/12/22 16:10 (units unknown) (unknown) (unknown) (no date) (unknown) (unknown) Temperature 97.2 F L (units unknown) (unknown) (unknown) (no date) (unknown) (unknown) Thiamine HCl (Thiamine 100 Mg Tablet) 100 mg PO NOW ONE (units unknown) (unknown) (unknown) (no date) (unknown) (unknown) Thiamine HCl 200 mg/ Sodium (Chloride) 102 mls @ 408 mls/hr IV NOW ONE (units unknown) (unknown) (unknown) (no date) (unknown) (unknown) This is a 31-year-ol d female with history of alcohol abuse and appears to have (units unknown) (unknown) (unknown) (no date) (unknown) (unknown) Thyroid Stimulating Hormone Stat (units unknown) (unknown) (unknown) (no date) (unknown) (unknown) Time Seen by Provider: 07/12/22 17:05 (units unknown) (unknown) (unknown) (no date) (unknown) (unknown) Total Bilirubin (0.2-1.3) mg/dL (units unknown) (unknown) (unknown) (no date) (unknown) (unknown) Total Bilirubin 0.4 (0.2-1.3) mg/dL (units unknown) (unknown) (unknown) (no date) (unknown) (unknown) Total Protein (6.3-8.2) g/dL (units unknown) (unknown) (unknown) (no date) (unknown) (unknown) Total Protein 7.3 (6.3-8.2) g/dL (units unknown) (unknown) (unknown) (no date) (unknown) (unknown) Tremor ?> 1 = Not visible, but can be felt fingertip to fingertip (units unknown) (unknown) (unknown) (no date) (unknown) (unknown) U Benzodiazepines Scrn (Negative) (units unknown) (unknown) (unknown) (no date) (unknown) (unknown) U Benzodiazepines Scrn Negative (Negative) (units unknown) (unknown) (unknown) (no date) (unknown) (unknown) U Marijuana (THC) Screen (Negative) (units unknown) (unknown) (unknown) (no date) (unknown) (unknown) U Marijuana (THC) Screen Negative (Negative) (units unknown) (unknown) (unknown) (no date) (unknown) (unknown) U Methamphetamines Scrn (Negative) (units unknown) (unknown) (unknown) (no date) (unknown) (unknown) U Methamphetamines Scrn Negative (Negative) (units unknown) (unknown) (unknown) (no date) (unknown) (unknown) U Opiates 300ng/mL cut (Negative) (units unknown) (unknown) (unknown) (no date) (unknown) (unknown) U Opiates 300ng/mL cut Negative (Negative) (units unknown) (unknown) (unknown) (no date) (unknown) (unknown) U Tricyclic Antidepress (Negative) (units unknown) (unknown) (unknown) (no date) (unknown) (unknown) U Tricyclic Antidepress Negative (Negative) (units unknown) (unknown) (unknown) (no date) (unknown) (unknown) Ur Amphetamines Screen (Negative) (units unknown) (unknown) (unknown) (no date) (unknown) (unknown) Ur Amphetamines Screen Negative (Negative) (units unknown) (unknown) (unknown) (no date) (unknown) (unknown) Ur Barbiturates Screen (Negative) (units unknown) (unknown) (unknown) (no date) (unknown) (unknown) Ur Barbiturates Screen Negative (Negative) (units unknown) (unknown) (unknown) (no date) (unknown) (unknown) Ur Culture Indicated ? Specimen cultured (units unknown) (unknown) (unknown) (no date) (unknown) (unknown) Ur Culture Indicated? (units unknown) (unknown) (unknown) (no date) (unknown) (unknown) Ur MDMA Scrn (Ecstasy) (Negative) (units unknown) (unknown) (unknown) (no date) (unknown) (unknown) Ur MDMA Scrn (Ecstasy) Negative (Negative) (units unknown) (unknown) (unknown) (no date) (unknown) (unknown) Ur Oxycodone Screen (Negative) (units unknown) (unknown) (unknown) (no date) (unknown) (unknown) Ur Oxycodone Screen Negative (Negative) (units unknown) (unknown) (unknown) (no date) (unknown) (unknown) Ur Phencyclidine Scr n (Negative) (units unknown) (unknown) (unknown) (no date) (unknown) (unknown) Ur Phencyclidine Scr n Negative (Negative) (units unknown) (unknown) (unknown) (no date) (unknown) (unknown) Ur Squamous Epith Cells (0-5/HPF) (units unknown) (unknown) (unknown) (no date) (unknown) (unknown) Ur Squamous Epith Cells 1-5 /hpf (0-5/HPF) (units unknown) (unknown) (unknown) (no date) (unknown) (unknown) Urine Bacteria (None) (units unknown) (unknown) (unknown) (no date) (unknown) (unknown) Urine Bacteria Many (>30) H (None) (units unknown) (unknown) (unknown) (no date) (unknown) (unknown) Urine Cocaine Screen (Negative) (units unknown) (unknown) (unknown) (no date) (unknown) (unknown) Urine Cocaine Screen Negative (Negative) (units unknown) (unknown) (unknown) (no date) (unknown) (unknown) Urine Culture Stat (units unknown) (unknown) (unknown) (no date) (unknown) (unknown) Urine Dip (units unknown) (unknown) (unknown) (no date) (unknown) (unknown) Urine Drug Screen, Rapid Stat (units unknown) (unknown) (unknown) (no date) (unknown) (unknown) Urine Methadone Screen (Negative) (units unknown) (unknown) (unknown) (no date) (unknown) (unknown) Urine Methadone Screen Negative (Negative) (units unknown) (unknown) (unknown) (no date) (unknown) (unknown) Urine Microscopic Stat (units unknown) (unknown) (unknown) (no date) (unknown) (unknown) Urine RBC (0-5/HPF) (units unknown) (unknown) (unknown) (no date) (unknown) (unknown) Urine RBC 1-5/hpf (0-5/HPF) (units unknown) (unknown) (unknown) (no date) (unknown) (unknown) Urine Specific [place] 1.015 (units unknown) (unknown) (unknown) (no date) (unknown) (unknown) Urine WBC (0-5/HPF) (units unknown) (unknown) (unknown) (no date) (unknown) (unknown) Urine WBC 1-5/hpf (0-5/HPF) (units unknown) (unknown) (unknown) (no date) (unknown) (unknown) Urine microscopy wit h many bacteria, pending for culture, will treat for acute (units unknown) (unknown) (unknown) (no date) (unknown) (unknown) Visual disturbances ?> 1 = Very mild sensitivity (units unknown) (unknown) (unknown) (no date) (unknown) (unknown) Vital Signs - 8 hr (units unknown) (unknown) (unknown) (no date) (unknown) (unknown) Vital Signs (units unknown) (unknown) (unknown) (no date) (unknown) (unknown) Vital signs: (units unknown) (unknown) (unknown) (no date) (unknown) (unknown) WBC (4.5-11.0) X103/uL (units unknown) (unknown) (unknown) (no date) (unknown) (unknown) WBC 3.3 L (4.5-11.0) X103/uL (units unknown) (unknown) (unknown) (no date) (unknown) (unknown) [Embedded Image Not Available] (units unknown) (unknown) (unknown) (no date) (unknown) (unknown) [METOCLOPRAMIDE] (units unknown) (unknown) (unknown) (no date) (unknown) (unknown) acceptable. She is nauseated, without vomiting, received Zofran previously and (units unknown) (unknown) (unknown) (no date) (unknown) (unknown) acetaminophen 325 mg tablet 325 mg PO Q6H PRN pain #20 tabs 02/05/20 (units unknown) (unknown) (unknown) (no date) (unknown) (unknown) acetaminophen [Tylenol] 325 mg tablet (units unknown) (unknown) (unknown) (no date) (unknown) (unknown) alcohol in 300s, she was last here in the emergency department in May of (units unknown) (unknown) (unknown) (no date) (unknown) (unknown) alcohol intake frequency: 3 or more drinks per day (units unknown) (unknown) (unknown) (no date) (unknown) (unknown) alcohol intake: former (units unknown) (unknown) (unknown) (no date) (unknown) (unknown) and below (units unknown) (unknown) (unknown) (no date) (unknown) (unknown) and cooperative (units unknown) (unknown) (unknown) (no date) (unknown) (unknown) arrhythmia, or acute ischemic changes. (units unknown) (unknown) (unknown) (no date) (unknown) (unknown) at extension and states that she feels symptoms of alcohol withdrawal. Denies (units unknown) (unknown) (unknown) (no date) (unknown) (unknown) being depressed at this time, CIWA is an 8. (units unknown) (unknown) (unknown) (no date) (unknown) (unknown) bpm with rightward axis and normal intervals. No STEMI, ST segment changes, (units unknown) (unknown) (unknown) (no date) (unknown) (unknown) current occupational exposures/hazards: Yes (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 with Pandemic ) (units unknown) (unknown) (unknown) (no date) (unknown) (unknown) cystitis (units unknown) (unknown) (unknown) (no date) (unknown) (unknown) cystitis, she is p.o . tolerant, still pending lab work (units unknown) (unknown) (unknown) (no date) (unknown) (unknown) deliver since it is after 17:00 and the diet order was ordered at 17:30. Samira (units unknown) (unknown) (unknown) (no date) (unknown) (unknown) detox as well. (units unknown) (unknown) (unknown) (no date) (unknown) (unknown) diarrhea or current stool changes. (units unknown) (unknown) (unknown) (no date) (unknown) (unknown) diphenhydramine HCl 25 mg capsule 25 mg PO BEDTIME PRN insomnia #20 02/05/20 (units unknown) (unknown) (unknown) (no date) (unknown) (unknown) diphenhydramine HCl [Benadryl] 25 mg capsule (units unknown) (unknown) (unknown) (no date) (unknown) (unknown) docusate sodium 100 mg capsule 100 mg PO BID #30 caps 02/05/20 (units unknown) (unknown) (unknown) (no date) (unknown) (unknown) docusate sodium [Colace] 100 mg capsule (units unknown) (unknown) (unknown) (no date) (unknown) (unknown) draw her labs (units unknown) (unknown) (unknown) (no date) (unknown) (unknown) education level: college (units unknown) (unknown) (unknown) (no date) (unknown) (unknown) electrolyte abnormalities. 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[employer] (units unknown) (unknown) (unknown) (no date) (unknown) (unknown) fluid, EtOH, and CIWA, ordered 2 mg of IV lorazepam for patient's symptoms, (units unknown) (unknown) (unknown) (no date) (unknown) (unknown) for alcohol related complaints through 2019, and she presented to the [facility] (units unknown) (unknown) (unknown) (no date) (unknown) (unknown) from social work is aware and pending her lab work to arrange for inpatient (units unknown) (unknown) (unknown) (no date) (unknown) (unknown) her urine microscopy came back positive for many bacteria, will treat for acute (units unknown) (unknown) (unknown) (no date) (unknown) (unknown) household members: spouse and children (units unknown) (unknown) (unknown) (no date) (unknown) (unknown) hydrocodone [HYDROCODONE] AdvReac Unknown VOMITING Verified 07/12/22 16:18 (units unknown) (unknown) (unknown) (no date) (unknown) (unknown) hydrocodone. She denies urinary frequency, urgency or flank pain, endorses (units unknown) (unknown) (unknown) (no date) (unknown) (unknown) ibuprofen 600 mg Tablet (units unknown) (unknown) (unknown) (no date) (unknown) (unknown) ibuprofen 600 mg tablet 600 mg PO Q6HR PRN Pain, Mild 07/04/20 (units unknown) (unknown) (unknown) (no date) (unknown) (unknown) injuries, denies chance of , denies any other ingestions, is pleasant, (units unknown) (unknown) (unknown) (no date) (unknown) (unknown) intoxicated endorses symptoms of alcohol withdrawal. Patient states that she (units unknown) (unknown) (unknown) (no date) (unknown) (unknown) intoxicated, pleasant, interactive and comfortable although active and fidgeting (units unknown) (unknown) (unknown) (no date) (unknown) (unknown) is 89, COVID PCR wa s negative, drug screen is negative for all tested agents, (units unknown) (unknown) (unknown) (no date) (unknown) (unknown) is allergic to Reglan, will dose with another 5 mg of Zofran, no QT prolongation (units unknown) (unknown) (unknown) (no date) (unknown) (unknown) limited history currently due to intoxication. She states that she is recently (units unknown) (unknown) (unknown) (no date) (unknown) (unknown) lorazepam at 2 mg fo r this. (units unknown) (unknown) (unknown) (no date) (unknown) (unknown) marital status: (units unknown) (unknown) (unknown) (no date) (unknown) (unknown) medicine with her, she only has the Seroquel. Patient has allergy to Reglan and (units unknown) (unknown) (unknown) (no date) (unknown) (unknown) metoclopramide Allergy Mild RASH/HIVES Verified 07/12/22 16:18 (units unknown) (unknown) (unknown) (no date) (unknown) (unknown) mild anemia but improved from her prior with H+H of 11.5 and 35.3, no evidence (units unknown) (unknown) (unknown) (no date) (unknown) (unknown) nausea vomiting or abdominal pain at this time. Denies any vomiting home or (units unknown) (unknown) (unknown) (no date) (unknown) (unknown) nausea without vomiting. (units unknown) (unknown) (unknown) (no date) (unknown) (unknown) number of children: 1 (units unknown) (unknown) (unknown) (no date) (unknown) (unknown) numbness (units unknown) (unknown) (unknown) (no date) (unknown) (unknown) occupational status: employed (units unknown) (unknown) (unknown) (no date) (unknown) (unknown) of bleeding anywhere , CMP (units unknown) (unknown) (unknown) (no date) (unknown) (unknown) on her EKG, patient is alert and oriented x3, complaining of feeling poorly and (units unknown) (unknown) (unknown) (no date) (unknown) (unknown) ondansetron 4 mg disintegrating 4 mg PO Q6H PRN nausea and 06/12/22 (units unknown) (unknown) (unknown) (no date) (unknown) (unknown) ondansetron 4 mg disintegrating 4 mg PO Q8H PRN nausea and 01/01/20 (units unknown) (unknown) (unknown) (no date) (unknown) (unknown) ondansetron 4 mg disintegrating 4 mg PO Q8H PRN nausea and 02/05/20 (units unknown) (unknown) (unknown) (no date) (unknown) (unknown) ondansetron 4 mg tablet,disintegrating (units unknown) (unknown) (unknown) (no date) (unknown) (unknown) ordered p.o. Ativan for her symptoms and ask our into call lab to come up and (units unknown) (unknown) (unknown) (no date) (unknown) (unknown) prenat.vits,otis,min- i thang-folic 1 tab PO DAILY 12/30/19 07/03/20 (units unknown) (unknown) (unknown) (no date) (unknown) (unknown) prenat.vits,otis,min- i thang-folic Tablet (units unknown) (unknown) (unknown) (no date) (unknown) (unknown) relapsed due to a divorce with her . She used to be a frequent visitor (units unknown) (unknown) (unknown) (no date) (unknown) (unknown) second hand exposure : No (growing up as a child - not currently) (units unknown) (unknown) (unknown) (no date) (unknown) (unknown) seeking help with he r intoxication and wishes to go to detox. She is currently (units unknown) (unknown) (unknown) (no date) (unknown) (unknown) significant tremor o r tongue fasciculation, she has a mild tremor with her arms (units unknown) (unknown) (unknown) (no date) (unknown) (unknown) social work and orders are pending (units unknown) (unknown) (unknown) (no date) (unknown) (unknown) special renee needs: No (units unknown) (unknown) (unknown) (no date) (unknown) (unknown) substance abuse, alcohol intoxication, psychosis, mood disorder, depression (units unknown) (unknown) (unknown) (no date) (unknown) (unknown) substance use type: does not use (units unknown) (unknown) (unknown) (no date) (unknown) (unknown) tablet vomiting #14 tabs (units unknown) (unknown) (unknown) (no date) (unknown) (unknown) tablet vomiting #20 tabs (units unknown) (unknown) (unknown) (no date) (unknown) (unknown) tablet vomiting #30 tabs (units unknown) (unknown) (unknown) (no date) (unknown) (unknown) takes Seroquel 300 m g at night as well as Librium but she does not have this (units unknown) (unknown) (unknown) (no date) (unknown) (unknown) tenderness or exquisite tenderness with exam. (units unknown) (unknown) (unknown) (no date) (unknown) (unknown) that she drinks vodk a and admits to drinking heavily today, states that she took (units unknown) (unknown) (unknown) (no date) (unknown) (unknown) the bottle upside down and started checking from it. She denies any recent (units unknown) (unknown) (unknown) (no date) (unknown) (unknown) thyroid studies are still pending. No significant findings to her CMP. No (units unknown) (unknown) (unknown) (no date) (unknown) (unknown) tramadol 50 mg table t 50 mg PO Q6H PRN pain #10 tabs 06/12/22 (units unknown) (unknown) (unknown) (no date) (unknown) (unknown) tramadol 50 mg tablet (units unknown) (unknown) (unknown) (no date) (unknown) (unknown) tremors, no tachycardia, her CIWA is currently 10, ordered another p.o. dose of (units unknown) (unknown) (unknown) (no date) (unknown) (unknown) well as prior record s if available. (units unknown) (unknown) (unknown) (no date) (unknown) (unknown) wheezing, stridor, o r abnormal breath sounds. No retractions or tachypnea. (units unknown) (unknown) Result panel [id number] (unknown) (no date) (unknown) (unknown) 0.93 ng/dl (unknown) Result panel 2181 (unknown) (no date) (unknown) (unknown) (no value) (units unknown) (unknown) (unknown) (no date) (unknown) (unknown) (1-3) #30 tabs (units unknown) (unknown) (unknown) (no date) (unknown) (unknown) (Benadryl) caps (units unknown) (unknown) (unknown) (no date) (unknown) (unknown) (Colace) (units unknown) (unknown) (unknown) (no date) (unknown) (unknown) (Tylenol) (units unknown) (unknown) (unknown) (no date) (unknown) (unknown) [id number] (units unknown) (unknown) (unknown) (no date) (unknown) (unknown) 07/12/22 07/12/22 07/12/22 Range/Units (units unknown) (unknown) (unknown) (no date) (unknown) (unknown) 07/12/22 07/12/22 Range/Units (units unknown) (unknown) (unknown) (no date) (unknown) (unknown) 07/12/22 16:28 (units unknown) (unknown) (unknown) (no date) (unknown) (unknown) 07/12/22 16:32 (units unknown) (unknown) (unknown) (no date) (unknown) (unknown) 07/12/22 18:28 (units unknown) (unknown) (unknown) (no date) (unknown) (unknown) 07/12/22 19:15 (units unknown) (unknown) (unknown) (no date) (unknown) (unknown) 07/12/22 (units unknown) (unknown) (unknown) (no date) (unknown) (unknown) 1 tab PO DAILY (units unknown) (unknown) (unknown) (no date) (unknown) (unknown) 100 mg PO BID Qty: 3 0 0RF (units unknown) (unknown) (unknown) (no date) (unknown) (unknown) 16:10 07/12/22 (units unknown) (unknown) (unknown) (no date) (unknown) (unknown) 16:32 16:32 16:32 (units unknown) (unknown) (unknown) (no date) (unknown) (unknown) 183 patient still does not have an IV, has not received any IV fluid her (units unknown) (unknown) (unknown) (no date) (unknown) (unknown) 18:53 (units unknown) (unknown) (unknown) (no date) (unknown) (unknown) 190 still no IV, patient is p.o. challenging, she received her p.o. lorazepam, (units unknown) (unknown) (unknown) (no date) (unknown) (unknown) 1929, patient now feels depressed, she is lying in bed, feeling bad, has (units unknown) (unknown) (unknown) (no date) (unknown) (unknown) 19:15 19:15 (units unknown) (unknown) (unknown) (no date) (unknown) (unknown) 1999 patient is feeling better now, her lab work is starting to return and ETOH (units unknown) (unknown) (unknown) (no date) (unknown) (unknown) 2002 patient request s to take her home dosing of Seroquel 300 mg, this is (units unknown) (unknown) (unknown) (no date) (unknown) (unknown) 2022 with similar symptoms. She comes in complaining of needing help, states (units unknown) (unknown) (unknown) (no date) (unknown) (unknown) 25 mg PO BEDTIME PRN (Reason: insomnia) Qty: 20 0RF (units unknown) (unknown) (unknown) (no date) (unknown) (unknown) 325 mg PO Q6H PRN (Reason: pain) Qty: 20 0RF (units unknown) (unknown) (unknown) (no date) (unknown) (unknown) 4 mg PO Q6H PRN (Reason: nausea and vomiting) Qty: 14 0RF (units unknown) (unknown) (unknown) (no date) (unknown) (unknown) 4 mg PO Q8H PRN (Reason: nausea and vomiting) Qty: 20 0RF (units unknown) (unknown) (unknown) (no date) (unknown) (unknown) 4 mg PO Q8H PRN (Reason: nausea and vomiting) Qty: 30 0RF (units unknown) (unknown) (unknown) (no date) (unknown) (unknown) 50 mg PO Q6H PRN (Reason: pain) Qty: 10 0RF (units unknown) (unknown) (unknown) (no date) (unknown) (unknown) 600 mg PO Q6HR PRN (Reason: Pain, Mild (1-3)) Qty: 30 0RF (units unknown) (unknown) (unknown) (no date) (unknown) (unknown) 9 points (units unknown) (unknown) (unknown) (no date) (unknown) (unknown) ALT (<35) IU/L (units unknown) (unknown) (unknown) (no date) (unknown) (unknown) ALT 21 (<35) IU/L (units unknown) (unknown) (unknown) (no date) (unknown) (unknown) AST (14-36) IU/L (units unknown) (unknown) (unknown) (no date) (unknown) (unknown) AST 67 H (14-36) IU/L (units unknown) (unknown) (unknown) (no date) (unknown) (unknown) Acetaminophen < 10 (10-30) ug/mL (units unknown) (unknown) (unknown) (no date) (unknown) (unknown) Acetaminophen (10-30 ) ug/mL (units unknown) (unknown) (unknown) (no date) (unknown) (unknown) Acetaminophen Stat (units unknown) (unknown) (unknown) (no date) (unknown) (unknown) Acute cystitis (units unknown) (unknown) (unknown) (no date) (unknown) (unknown) Age/Sex: 31 / F (units unknown) (unknown) (unknown) (no date) (unknown) (unknown) Agitation ?> 2 = (More severe symptoms) (units unknown) (unknown) (unknown) (no date) (unknown) (unknown) Albumin (3.5-5.0) g/dL (units unknown) (unknown) (unknown) (no date) (unknown) (unknown) Albumin 4.3 (3.5-5.0 ) g/dL (units unknown) (unknown) (unknown) (no date) (unknown) (unknown) Albumin/Globulin Ratio (1.0-2.8) (units unknown) (unknown) (unknown) (no date) (unknown) (unknown) Albumin/Globulin Ratio 1.4 (1.0-2.8) (units unknown) (unknown) (unknown) (no date) (unknown) (unknown) Alcohol use disorder (units unknown) (unknown) (unknown) (no date) (unknown) (unknown) Alcoholism (units unknown) (unknown) (unknown) (no date) (unknown) (unknown) Alkaline Phosphatase (38-126) U/L (units unknown) (unknown) (unknown) (no date) (unknown) (unknown) Alkaline Phosphatase 98 (38-126) U/L (units unknown) (unknown) (unknown) (no date) (unknown) (unknown) Allergies (units unknown) (unknown) (unknown) (no date) (unknown) (unknown) Allergy/AdvReac Type Severity Reaction Status Date / Time (units unknown) (unknown) (unknown) (no date) (unknown) (unknown) Anemia (-2018) (units unknown) (unknown) (unknown) (no date) (unknown) (unknown) Anxiety ?> 2 = (More severe symptoms) (units unknown) (unknown) (unknown) (no date) (unknown) (unknown) Auditory disturbance s ?> 1 = Very mild harshness or ability to frighten (units unknown) (unknown) (unknown) (no date) (unknown) (unknown) BUN (7-17) mg/dL (units unknown) (unknown) (unknown) (no date) (unknown) (unknown) BUN 9 (7-17) mg/dL (units unknown) (unknown) (unknown) (no date) (unknown) (unknown) BUN/Creatinine Ratio (6-22) (units unknown) (unknown) (unknown) (no date) (unknown) (unknown) BUN/Creatinine Ratio 11.0 (6-22) (units unknown) (unknown) (unknown) (no date) (unknown) (unknown) Baso # (Auto) (0-100 ) /uL (units unknown) (unknown) (unknown) (no date) (unknown) (unknown) Baso # (Auto) 0 (0-100) /uL (units unknown) (unknown) (unknown) (no date) (unknown) (unknown) Baso % (Auto) (0-2) % (units unknown) (unknown) (unknown) (no date) (unknown) (unknown) Baso % (Auto) 0.9 (0-2) % (units unknown) (unknown) (unknown) (no date) (unknown) (unknown) Bedside Urine Bilirubin - Negative (units unknown) (unknown) (unknown) (no date) (unknown) (unknown) Bedside Urine Glucos e Negative (units unknown) (unknown) (unknown) (no date) (unknown) (unknown) Bedside Urine Ketone - Negative (units unknown) (unknown) (unknown) (no date) (unknown) (unknown) Bedside Urine Leukocytes - Negative (units unknown) (unknown) (unknown) (no date) (unknown) (unknown) Bedside Urine Nitrit e + Positive (units unknown) (unknown) (unknown) (no date) (unknown) (unknown) Bedside Urine Occult Blood - Negative (units unknown) (unknown) (unknown) (no date) (unknown) (unknown) Bedside Urine Protei n - Negative (units unknown) (unknown) (unknown) (no date) (unknown) (unknown) Bedside Urine Urobilinogen - Negative (units unknown) (unknown) (unknown) (no date) (unknown) (unknown) Bedside Urine pH 6.0 (units unknown) (unknown) (unknown) (no date) (unknown) (unknown) Blood Pressure 112/6 2 07/12/22 16:10 (units unknown) (unknown) (unknown) (no date) (unknown) (unknown) Blood Pressure 112/62 (units unknown) (unknown) (unknown) (no date) (unknown) (unknown) Blood Pressure [Left Arm] 100/59 L (units unknown) (unknown) (unknown) (no date) (unknown) (unknown) CIWA is now worse an d she has tremors, anxiety is worsening and agitation, (units unknown) (unknown) (unknown) (no date) (unknown) (unknown) CIWA-Ar for Alcohol Withdrawal from [email or web address] on 07/12/2022 (units unknown) (unknown) (unknown) (no date) (unknown) (unknown) COVID19 -Nasal RAPID/Pre-Proc Stat (units unknown) (unknown) (unknown) (no date) (unknown) (unknown) Calcium (8.4-10.2) mg/dL (units unknown) (unknown) (unknown) (no date) (unknown) (unknown) Calcium 8.0 L (8.4-10.2) mg/dL (units unknown) (unknown) (unknown) (no date) (unknown) (unknown) Carbon Dioxide (22-32) mmol/L (units unknown) (unknown) (unknown) (no date) (unknown) (unknown) Carbon Dioxide 23 (22-32) mmol/L (units unknown) (unknown) (unknown) (no date) (unknown) (unknown) Cardiovascular: regular rate and rhythm, no peripheral edema, warm extremities (units unknown) (unknown) (unknown) (no date) (unknown) (unknown) Cephalexin HCl (Cephalexin 250 Mg Capsule) 500 mg PO Q6H SANDY (units unknown) (unknown) (unknown) (no date) (unknown) (unknown) Chief Complaint: Alcohol intoxication, seeking detox (units unknown) (unknown) (unknown) (no date) (unknown) (unknown) Chief Complaint: Toxicology Problem (units unknown) (unknown) (unknown) (no date) (unknown) (unknown) Chloride (98-107) mmol/L (units unknown) (unknown) (unknown) (no date) (unknown) (unknown) Chloride 104 (98-107 ) mmol/L (units unknown) (unknown) (unknown) (no date) (unknown) (unknown) Clinical Impression: (units unknown) (unknown) (unknown) (no date) (unknown) (unknown) Clinical decision rules or scores evaluated: CIWA of 9 at 1753 (units unknown) (unknown) (unknown) (no date) (unknown) (unknown) Complete Blood Count AUTO DIFF Stat (units unknown) (unknown) (unknown) (no date) (unknown) (unknown) Comprehensive Metabolic Panel Stat (units unknown) (unknown) (unknown) (no date) (unknown) (unknown) 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 (units unknown) (unknown) (unknown) (no date) (unknown) (unknown) Course of care: Patient is a difficult IV stick, ordered IV with lab work, (units unknown) (unknown) (unknown) (no date) (unknown) (unknown) Course (units unknown) (unknown) (unknown) (no date) (unknown) (unknown) Creatinine (0.52-1.04) mg/dL (units unknown) (unknown) (unknown) (no date) (unknown) (unknown) Creatinine 0.82 (0.52-1.04) mg/dL (units unknown) (unknown) (unknown) (no date) (unknown) (unknown) : 1990 Acct:[id number] (units unknown) (unknown) (unknown) (no date) (unknown) (unknown) Date of Service: 07/12/22 (units unknown) (unknown) (unknown) (no date) (unknown) (unknown) Departure (units unknown) (unknown) (unknown) (no date) (unknown) (unknown) Differential diagnoses include but are not limited to: Alcohol withdrawal, (units unknown) (unknown) (unknown) (no date) (unknown) (unknown) Discharge Plan (units unknown) (unknown) (unknown) (no date) (unknown) (unknown) Discontinued Medications (units unknown) (unknown) (unknown) (no date) (unknown) (unknown) Documented By: KB (units unknown) (unknown) (unknown) (no date) (unknown) (unknown) Documented By: OW (units unknown) (unknown) (unknown) (no date) (unknown) (unknown) ECG Data (units unknown) (unknown) (unknown) (no date) (unknown) (unknown) ED Orders (units unknown) (unknown) (unknown) (no date) (unknown) (unknown) EKG independently reviewed by myself at 1830 reveals normal sinus rhythm at 72 (units unknown) (unknown) (unknown) (no date) (unknown) (unknown) EKG-12 Lead Stat (units unknown) (unknown) (unknown) (no date) (unknown) (unknown) ER Physician: Juliet Paz (units unknown) (unknown) (unknown) (no date) (unknown) (unknown) Emergency Report (units unknown) (unknown) (unknown) (no date) (unknown) (unknown) Eos # (Auto) (0-450) /uL (units unknown) (unknown) (unknown) (no date) (unknown) (unknown) Eos # (Auto) 0 (0-450) /uL (units unknown) (unknown) (unknown) (no date) (unknown) (unknown) Eos % (Auto) (2-4) % (units unknown) (unknown) (unknown) (no date) (unknown) (unknown) Eos % (Auto) 0.3 L (2-4) % (units unknown) (unknown) (unknown) (no date) (unknown) (unknown) Esterase (units unknown) (unknown) (unknown) (no date) (unknown) (unknown) Estimated GFR > 60 (>60) mL/min (units unknown) (unknown) (unknown) (no date) (unknown) (unknown) Estimated GFR (>60) mL/min (units unknown) (unknown) (unknown) (no date) (unknown) (unknown) Ethanol (ETOH) Stat (units unknown) (unknown) (unknown) (no date) (unknown) (unknown) Ethyl Alcohol ( - 10 ) mg/dL (units unknown) (unknown) (unknown) (no date) (unknown) (unknown) Ethyl Alcohol 338 H ( - 10) mg/dL (units unknown) (unknown) (unknown) (no date) (unknown) (unknown) Exam Narrative: (units unknown) (unknown) (unknown) (no date) (unknown) (unknown) Exam (units unknown) (unknown) (unknown) (no date) (unknown) (unknown) Family History (units unknown) (unknown) (unknown) (no date) (unknown) (unknown) Family/Other Alcoholism (units unknown) (unknown) (unknown) (no date) (unknown) (unknown) Family/Other Diabete s mellitus (units unknown) (unknown) (unknown) (no date) (unknown) (unknown) Father Alcoholism (units unknown) (unknown) (unknown) (no date) (unknown) (unknown) Tonia Schneider MD [Primary Care Provider] (units unknown) (unknown) (unknown) (no date) (unknown) (unknown) Folic Acid (Folic Acid 1 Mg Tablet) 1 mg PO DAILY SANDY (units unknown) (unknown) (unknown) (no date) (unknown) (unknown) Free T4, Direct Thyroxine Stat (units unknown) (unknown) (unknown) (no date) (unknown) (unknown) GI: abdomen soft, nontender to palpation, nondistended, without masses, rebound (units unknown) (unknown) (unknown) (no date) (unknown) (unknown) General (units unknown) (unknown) (unknown) (no date) (unknown) (unknown) General: cooperative , comfortable, in no acute distress, well groomed, appears (units unknown) (unknown) (unknown) (no date) (unknown) (unknown) Globulin (1.7-4.1) g/dL (units unknown) (unknown) (unknown) (no date) (unknown) (unknown) Globulin 3.0 (1.7-4.1) g/dL (units unknown) (unknown) (unknown) (no date) (unknown) (unknown) Glucose (70-100) mg/dL (units unknown) (unknown) (unknown) (no date) (unknown) (unknown) Glucose 111 H (70-100) mg/dL (units unknown) (unknown) (unknown) (no date) (unknown) (unknown) Grandfather Smoker (units unknown) (unknown) (unknown) (no date) (unknown) (unknown) Grandfather Unknown whether patient has any health problems (units unknown) (unknown) (unknown) (no date) (unknown) (unknown) Grandmother Diabetes mellitus (units unknown) (unknown) (unknown) (no date) (unknown) (unknown) Grandmother Hypoglycemia (units unknown) (unknown) (unknown) (no date) (unknown) (unknown) H/O dilation and curettage (-12/14/16) (units unknown) (unknown) (unknown) (no date) (unknown) (unknown) H/O wisdom tooth extraction () (units unknown) (unknown) (unknown) (no date) (unknown) (unknown) HEENT: symmetrical facial expressions, dry mucous membranes (units unknown) (unknown) (unknown) (no date) (unknown) (unknown) HPI - Alcohol (units unknown) (unknown) (unknown) (no date) (unknown) (unknown) HPI narrative: (units unknown) (unknown) (unknown) (no date) (unknown) (unknown) Hct (36-46) % (units unknown) (unknown) (unknown) (no date) (unknown) (unknown) Hct 35.3 L (36-46) % (units unknown) (unknown) (unknown) (no date) (unknown) (unknown) Headache/fullness in head ?> 1 = Very mild (units unknown) (unknown) (unknown) (no date) (unknown) (unknown) Hematuria presence: without hematuria Qualified Code(s): N30.00 - Acute (units unknown) (unknown) (unknown) (no date) (unknown) (unknown) Hgb (12.0-16.0) g/dL (units unknown) (unknown) (unknown) (no date) (unknown) (unknown) Hgb 11.5 L (12.0-16.0) g/dL (units unknown) (unknown) (unknown) (no date) (unknown) (unknown) History of Present Illness (units unknown) (unknown) (unknown) (no date) (unknown) (unknown) Home Medications (units unknown) (unknown) (unknown) (no date) (unknown) (unknown) I have independently reviewed the patient's vital signs and nursing notes as (units unknown) (unknown) (unknown) (no date) (unknown) (unknown) INPUTS: (units unknown) (unknown) (unknown) (no date) (unknown) (unknown) Independent historian: Patient (units unknown) (unknown) (unknown) (no date) (unknown) (unknown) Initial Vital Signs (units unknown) (unknown) (unknown) (no date) (unknown) (unknown) Initial Vital Signs: (units unknown) (unknown) (unknown) (no date) (unknown) (unknown) Insomnia (units unknown) (unknown) (unknown) (no date) (unknown) (unknown) Interpretation: (units unknown) (unknown) (unknown) (no date) (unknown) (unknown) [address] [address] (units unknown) (unknown) (unknown) (no date) (unknown) (unknown) Lab Data (units unknown) (unknown) (unknown) (no date) (unknown) (unknown) Lab Results (units unknown) (unknown) (unknown) (no date) (unknown) (unknown) Labs: (units unknown) (unknown) (unknown) (no date) (unknown) (unknown) Last Admin: 07/12/22 18:39 Dose: 4 mg (units unknown) (unknown) (unknown) (no date) (unknown) (unknown) Last Admin: 07/12/22 18:40 Dose: 1 mg (units unknown) (unknown) (unknown) (no date) (unknown) (unknown) Last Admin: 07/12/22 18:56 Dose: Not Given (units unknown) (unknown) (unknown) (no date) (unknown) (unknown) Lorazepam (Lorazepam 0.5 Mg Tablet) 1 mg PO NOW ONE (units unknown) (unknown) (unknown) (no date) (unknown) (unknown) Lorazepam (Lorazepam 0.5 Mg Tablet) 2 mg PO NOW ONE (units unknown) (unknown) (unknown) (no date) (unknown) (unknown) Lorazepam (Lorazepam 2 Mg/Ml Inj) 2 mg IV NOW ONE (units unknown) (unknown) (unknown) (no date) (unknown) (unknown) Lymph # (Auto) (7208-1091) /uL (units unknown) (unknown) (unknown) (no date) (unknown) (unknown) Lymph # (Auto) 1700 (0773-5735) /uL (units unknown) (unknown) (unknown) (no date) (unknown) (unknown) Lymph % (Auto) (25-40) % (units unknown) (unknown) (unknown) (no date) (unknown) (unknown) Lymph % (Auto) 50.6 H (25-40) % (units unknown) (unknown) (unknown) (no date) (unknown) (unknown) MCH (26-34) PG (units unknown) (unknown) (unknown) (no date) (unknown) (unknown) MCH 26.0 (26-34) PG (units unknown) (unknown) (unknown) (no date) (unknown) (unknown) MCHC (30-36) % (units unknown) (unknown) (unknown) (no date) (unknown) (unknown) MCHC 32.7 (30-36) % (units unknown) (unknown) (unknown) (no date) (unknown) (unknown) MCV (80-100) fL (units unknown) (unknown) (unknown) (no date) (unknown) (unknown) MCV 79.5 L (80-100) fL (units unknown) (unknown) (unknown) (no date) (unknown) (unknown) MDM - Alcohol (units unknown) (unknown) (unknown) (no date) (unknown) (unknown) MDM Narrative (units unknown) (unknown) (unknown) (no date) (unknown) (unknown) MIPS: This encounter doesn't have any diagnosis' associated with MIPS criteria. (units unknown) (unknown) (unknown) (no date) (unknown) (unknown) MSK: moves all extremities, neurovascularly intact, no weakness, normal tone no (units unknown) (unknown) (unknown) (no date) (unknown) (unknown) Medical History (units unknown) (unknown) (unknown) (no date) (unknown) (unknown) Medical decision making narrative: (units unknown) (unknown) (unknown) (no date) (unknown) (unknown) Medication Instructions Recorded Confirmed (units unknown) (unknown) (unknown) (no date) (unknown) (unknown) Medication Instructions Recorded (units unknown) (unknown) (unknown) (no date) (unknown) (unknown) Menometrorrhagia (units unknown) (unknown) (unknown) (no date) (unknown) (unknown) Mode of arrival: Ambulatory (units unknown) (unknown) (unknown) (no date) (unknown) (unknown) [place] # (Auto) (0-900 ) /uL (units unknown) (unknown) (unknown) (no date) (unknown) (unknown) [place] # (Auto) 100 (0-900) /uL (units unknown) (unknown) (unknown) (no date) (unknown) (unknown) [place] % (Auto) (3-14) % (units unknown) (unknown) (unknown) (no date) (unknown) (unknown) [place] % (Auto) 2.7 L (3-14) % (units unknown) (unknown) (unknown) (no date) (unknown) (unknown) Mother Diabetes mellitus (units unknown) (unknown) (unknown) (no date) (unknown) (unknown) Narrative (units unknown) (unknown) (unknown) (no date) (unknown) (unknown) Nausea/vomiting ?> 0 = No nausea and no vomiting (units unknown) (unknown) (unknown) (no date) (unknown) (unknown) Neuro: normal speech and cognition, A+O x3, ambulatory, clear speech (units unknown) (unknown) (unknown) (no date) (unknown) (unknown) Neut # (Auto) (2353-2615) /uL (units unknown) (unknown) (unknown) (no date) (unknown) (unknown) Neut # (Auto) 1500 (2828-8952) /uL (units unknown) (unknown) (unknown) (no date) (unknown) (unknown) Neut % (Auto) (50-75 ) % (units unknown) (unknown) (unknown) (no date) (unknown) (unknown) Neut % (Auto) 45.5 L (50-75) % (units unknown) (unknown) (unknown) (no date) (unknown) (unknown) No Action (units unknown) (unknown) (unknown) (no date) (unknown) (unknown) Obesity (units unknown) (unknown) (unknown) (no date) (unknown) (unknown) Ondansetron HCl (Ondansetron 4 Mg Odt) 4 mg SL NOW ONE (units unknown) (unknown) (unknown) (no date) (unknown) (unknown) Ondansetron HCl (Ondansetron 4 Mg/2 Ml Inj) 4 mg IV Q6HR PRN (units unknown) (unknown) (unknown) (no date) (unknown) (unknown) Ordered: (units unknown) (unknown) (unknown) (no date) (unknown) (unknown) Orders (units unknown) (unknown) (unknown) (no date) (unknown) (unknown) Orientation/clouding of sensorium ?> 0 = Oriented, can do serial additions (units unknown) (unknown) (unknown) (no date) (unknown) (unknown) Overweight (units unknown) (unknown) (unknown) (no date) (unknown) (unknown) Oxygen Delivery Method Room Air 07/12/22 16:10 (units unknown) (unknown) (unknown) (no date) (unknown) (unknown) Oxygen Delivery Method Room Air Room Air (units unknown) (unknown) (unknown) (no date) (unknown) (unknown) PRN Reason: Nausea And Vomiting (units unknown) (unknown) (unknown) (no date) (unknown) (unknown) Paroxysmal sweats ?> 0 = No sweat visible (units unknown) (unknown) (unknown) (no date) (unknown) (unknown) Patient Disposition: [facility] (units unknown) (unknown) (unknown) (no date) (unknown) (unknown) Patient History (units unknown) (unknown) (unknown) (no date) (unknown) (unknown) Patient: Sarah Connors MR#: M (units unknown) (unknown) (unknown) (no date) (unknown) (unknown) Patients with scores >= may require medication for withdrawal. (units unknown) (unknown) (unknown) (no date) (unknown) (unknown) Pertinent lab findings reviewed: CBC is pertinent for mild leukopenia of 3.3, (units unknown) (unknown) (unknown) (no date) (unknown) (unknown) Plt Count (150-400) X103/uL (units unknown) (unknown) (unknown) (no date) (unknown) (unknown) Plt Count 226 (150-400) X103/uL (units unknown) (unknown) (unknown) (no date) (unknown) (unknown) Point of Care Testing (units unknown) (unknown) (unknown) (no date) (unknown) (unknown) Potassium (3.4-5.1) mmol/L (units unknown) (unknown) (unknown) (no date) (unknown) (unknown) Potassium 3.9 (3.4-5.1) mmol/L (units unknown) (unknown) (unknown) (no date) (unknown) (unknown) Test Results Negative (units unknown) (unknown) (unknown) (no date) (unknown) (unknown) Prescriptions: (units unknown) (unknown) (unknown) (no date) (unknown) (unknown) Previous Rx's (units unknown) (unknown) (unknown) (no date) (unknown) (unknown) Psych: mental status is grossly normal, congruent mood, normal affect, pleasant (units unknown) (unknown) (unknown) (no date) (unknown) (unknown) Pulse Oximetry 99 07/12/22 16:10 (units unknown) (unknown) (unknown) (no date) (unknown) (unknown) Pulse Oximetry 99 99 (units unknown) (unknown) (unknown) (no date) (unknown) (unknown) Pulse Rate 82 07/12/22 16:10 (units unknown) (unknown) (unknown) (no date) (unknown) (unknown) Pulse Rate 82 86 (units unknown) (unknown) (unknown) (no date) (unknown) (unknown) Qualifiers: (units unknown) (unknown) (unknown) (no date) (unknown) (unknown) Questions are addressed and there is agreement with the plan and for follow-up. (units unknown) (unknown) (unknown) (no date) (unknown) (unknown) RBC (4.0-5.2) X106/uL (units unknown) (unknown) (unknown) (no date) (unknown) (unknown) RBC 4.44 (4.0-5.2) X106/uL (units unknown) (unknown) (unknown) (no date) (unknown) (unknown) RDW (11.6-14.8) % (units unknown) (unknown) (unknown) (no date) (unknown) (unknown) RDW 17.3 H (11.6-14.8) % (units unknown) (unknown) (unknown) (no date) (unknown) (unknown) RESULT SUMMARY: (units unknown) (unknown) (unknown) (no date) (unknown) (unknown) ROS Unobtainable: Al l systems reviewed + are unremarkable except as noted in HPI (units unknown) (unknown) (unknown) (no date) (unknown) (unknown) Referrals: (units unknown) (unknown) (unknown) (no date) (unknown) (unknown) Related Data (units unknown) (unknown) (unknown) (no date) (unknown) (unknown) Respiratory Rate 14 07/12/22 16:10 (units unknown) (unknown) (unknown) (no date) (unknown) (unknown) Respiratory Rate 14 22 (units unknown) (unknown) (unknown) (no date) (unknown) (unknown) Respiratory: normal effort, able to speak in complete sentences, without (units unknown) (unknown) (unknown) (no date) (unknown) (unknown) Review of Systems (units unknown) (unknown) (unknown) (no date) (unknown) (unknown) Reviewed vitals sign s and nursing notes. (units unknown) (unknown) (unknown) (no date) (unknown) (unknown) S/P myringotomy with insertion of tube (units unknown) (unknown) (unknown) (no date) (unknown) (unknown) SARS-CoV-2 (PCR) (Negative) (units unknown) (unknown) (unknown) (no date) (unknown) (unknown) SARS-CoV-2 (PCR) Negative (Negative) (units unknown) (unknown) (unknown) (no date) (unknown) (unknown) (spontaneous vaginal delivery) (-09/05/18) (units unknown) (unknown) (unknown) (no date) (unknown) (unknown) Salicylate Stat (units unknown) (unknown) (unknown) (no date) (unknown) (unknown) Salicylates < 1.0 (<20) mg/dL (units unknown) (unknown) (unknown) (no date) (unknown) (unknown) Salicylates (<20) mg/dL (units unknown) (unknown) (unknown) (no date) (unknown) (unknown) She was given a couple water, a diet order was ordered however they may not (units unknown) (unknown) (unknown) (no date) (unknown) (unknown) Signed By: (units unknown) (unknown) (unknown) (no date) (unknown) (unknown) Skin: brisk capillar y refill, without pallor or erythema (units unknown) (unknown) (unknown) (no date) (unknown) (unknown) Smoker (units unknown) (unknown) (unknown) (no date) (unknown) (unknown) Smoking Status: Former smoker (units unknown) (unknown) (unknown) (no date) (unknown) (unknown) Social History (units unknown) (unknown) (unknown) (no date) (unknown) (unknown) Social consideration s that may affect disposition: none (units unknown) (unknown) (unknown) (no date) (unknown) (unknown) Sodium (137-145) mmol/L (units unknown) (unknown) (unknown) (no date) (unknown) (unknown) Sodium 140 (137-145) mmol/L (units unknown) (unknown) (unknown) (no date) (unknown) (unknown) Sodium Chloride (Normal Saline 0.9%) 1,000 mls @ 1,000 mls/hr IV BOLUS ONE (units unknown) (unknown) (unknown) (no date) (unknown) (unknown) Source: patient (units unknown) (unknown) (unknown) (no date) (unknown) (unknown) Stated Complaint: Stress/Depression (units unknown) (unknown) (unknown) (no date) (unknown) (unknown) Stop: 07/12/22 17:33 (units unknown) (unknown) (unknown) (no date) (unknown) (unknown) Stop: 07/12/22 17:45 (units unknown) (unknown) (unknown) (no date) (unknown) (unknown) Stop: 07/12/22 18:28 (units unknown) (unknown) (unknown) (no date) (unknown) (unknown) Stop: 07/12/22 18:31 (units unknown) (unknown) (unknown) (no date) (unknown) (unknown) Stop: 07/12/22 19:25 (units unknown) (unknown) (unknown) (no date) (unknown) (unknown) Substance Use Type: does not use (units unknown) (unknown) (unknown) (no date) (unknown) (unknown) Surgical History (units unknown) (unknown) (unknown) (no date) (unknown) (unknown) Tactile disturbances ?> 1 = Very mild itching, pin and needles, burning, or (units unknown) (unknown) (unknown) (no date) (unknown) (unknown) Temperature 97.2 F L 07/12/22 16:10 (units unknown) (unknown) (unknown) (no date) (unknown) (unknown) Temperature 97.2 F L (units unknown) (unknown) (unknown) (no date) (unknown) (unknown) Thiamine HCl (Thiamine 100 Mg Tablet) 100 mg PO NOW ONE (units unknown) (unknown) (unknown) (no date) (unknown) (unknown) Thiamine HCl 200 mg/ Sodium (Chloride) 102 mls @ 408 mls/hr IV NOW ONE (units unknown) (unknown) (unknown) (no date) (unknown) (unknown) This is a 31-year-ol d female with history of alcohol abuse and appears to have (units unknown) (unknown) (unknown) (no date) (unknown) (unknown) Thyroid Stimulating Hormone Stat (units unknown) (unknown) (unknown) (no date) (unknown) (unknown) Time Seen by Provider: 07/12/22 17:05 (units unknown) (unknown) (unknown) (no date) (unknown) (unknown) Total Bilirubin (0.2-1.3) mg/dL (units unknown) (unknown) (unknown) (no date) (unknown) (unknown) Total Bilirubin 0.4 (0.2-1.3) mg/dL (units unknown) (unknown) (unknown) (no date) (unknown) (unknown) Total Protein (6.3-8.2) g/dL (units unknown) (unknown) (unknown) (no date) (unknown) (unknown) Total Protein 7.3 (6.3-8.2) g/dL (units unknown) (unknown) (unknown) (no date) (unknown) (unknown) Tremor ?> 1 = Not visible, but can be felt fingertip to fingertip (units unknown) (unknown) (unknown) (no date) (unknown) (unknown) U Benzodiazepines Scrn (Negative) (units unknown) (unknown) (unknown) (no date) (unknown) (unknown) U Benzodiazepines Scrn Negative (Negative) (units unknown) (unknown) (unknown) (no date) (unknown) (unknown) U Marijuana (THC) Screen (Negative) (units unknown) (unknown) (unknown) (no date) (unknown) (unknown) U Marijuana (THC) Screen Negative (Negative) (units unknown) (unknown) (unknown) (no date) (unknown) (unknown) U Methamphetamines Scrn (Negative) (units unknown) (unknown) (unknown) (no date) (unknown) (unknown) U Methamphetamines Scrn Negative (Negative) (units unknown) (unknown) (unknown) (no date) (unknown) (unknown) U Opiates 300ng/mL cut (Negative) (units unknown) (unknown) (unknown) (no date) (unknown) (unknown) U Opiates 300ng/mL cut Negative (Negative) (units unknown) (unknown) (unknown) (no date) (unknown) (unknown) U Tricyclic Antidepress (Negative) (units unknown) (unknown) (unknown) (no date) (unknown) (unknown) U Tricyclic Antidepress Negative (Negative) (units unknown) (unknown) (unknown) (no date) (unknown) (unknown) Ur Amphetamines Screen (Negative) (units unknown) (unknown) (unknown) (no date) (unknown) (unknown) Ur Amphetamines Screen Negative (Negative) (units unknown) (unknown) (unknown) (no date) (unknown) (unknown) Ur Barbiturates Screen (Negative) (units unknown) (unknown) (unknown) (no date) (unknown) (unknown) Ur Barbiturates Screen Negative (Negative) (units unknown) (unknown) (unknown) (no date) (unknown) (unknown) Ur Culture Indicated ? Specimen cultured (units unknown) (unknown) (unknown) (no date) (unknown) (unknown) Ur Culture Indicated? (units unknown) (unknown) (unknown) (no date) (unknown) (unknown) Ur MDMA Scrn (Ecstasy) (Negative) (units unknown) (unknown) (unknown) (no date) (unknown) (unknown) Ur MDMA Scrn (Ecstasy) Negative (Negative) (units unknown) (unknown) (unknown) (no date) (unknown) (unknown) Ur Oxycodone Screen (Negative) (units unknown) (unknown) (unknown) (no date) (unknown) (unknown) Ur Oxycodone Screen Negative (Negative) (units unknown) (unknown) (unknown) (no date) (unknown) (unknown) Ur Phencyclidine Scr n (Negative) (units unknown) (unknown) (unknown) (no date) (unknown) (unknown) Ur Phencyclidine Scr n Negative (Negative) (units unknown) (unknown) (unknown) (no date) (unknown) (unknown) Ur Squamous Epith Cells (0-5/HPF) (units unknown) (unknown) (unknown) (no date) (unknown) (unknown) Ur Squamous Epith Cells 1-5 /hpf (0-5/HPF) (units unknown) (unknown) (unknown) (no date) (unknown) (unknown) Urine Bacteria (None) (units unknown) (unknown) (unknown) (no date) (unknown) (unknown) Urine Bacteria Many (>30) H (None) (units unknown) (unknown) (unknown) (no date) (unknown) (unknown) Urine Cocaine Screen (Negative) (units unknown) (unknown) (unknown) (no date) (unknown) (unknown) Urine Cocaine Screen Negative (Negative) (units unknown) (unknown) (unknown) (no date) (unknown) (unknown) Urine Culture Stat (units unknown) (unknown) (unknown) (no date) (unknown) (unknown) Urine Dip (units unknown) (unknown) (unknown) (no date) (unknown) (unknown) Urine Drug Screen, Rapid Stat (units unknown) (unknown) (unknown) (no date) (unknown) (unknown) Urine Methadone Screen (Negative) (units unknown) (unknown) (unknown) (no date) (unknown) (unknown) Urine Methadone Screen Negative (Negative) (units unknown) (unknown) (unknown) (no date) (unknown) (unknown) Urine Microscopic Stat (units unknown) (unknown) (unknown) (no date) (unknown) (unknown) Urine RBC (0-5/HPF) (units unknown) (unknown) (unknown) (no date) (unknown) (unknown) Urine RBC 1-5/hpf (0-5/HPF) (units unknown) (unknown) (unknown) (no date) (unknown) (unknown) Urine Specific [place] 1.015 (units unknown) (unknown) (unknown) (no date) (unknown) (unknown) Urine WBC (0-5/HPF) (units unknown) (unknown) (unknown) (no date) (unknown) (unknown) Urine WBC 1-5/hpf (0-5/HPF) (units unknown) (unknown) (unknown) (no date) (unknown) (unknown) Urine microscopy wit h many bacteria, pending for culture, will treat for acute (units unknown) (unknown) (unknown) (no date) (unknown) (unknown) Visual disturbances ?> 1 = Very mild sensitivity (units unknown) (unknown) (unknown) (no date) (unknown) (unknown) Vital Signs - 8 hr (units unknown) (unknown) (unknown) (no date) (unknown) (unknown) Vital Signs (units unknown) (unknown) (unknown) (no date) (unknown) (unknown) Vital signs: (units unknown) (unknown) (unknown) (no date) (unknown) (unknown) WBC (4.5-11.0) X103/uL (units unknown) (unknown) (unknown) (no date) (unknown) (unknown) WBC 3.3 L (4.5-11.0) X103/uL (units unknown) (unknown) (unknown) (no date) (unknown) (unknown) [Embedded Image Not Available] (units unknown) (unknown) (unknown) (no date) (unknown) (unknown) [METOCLOPRAMIDE] (units unknown) (unknown) (unknown) (no date) (unknown) (unknown) acceptable. She is nauseated, without vomiting, received Zofran previously and (units unknown) (unknown) (unknown) (no date) (unknown) (unknown) acetaminophen 325 mg tablet 325 mg PO Q6H PRN pain #20 tabs 02/05/20 (units unknown) (unknown) (unknown) (no date) (unknown) (unknown) acetaminophen [Tylenol] 325 mg tablet (units unknown) (unknown) (unknown) (no date) (unknown) (unknown) alcohol in 300s, she was last here in the emergency department in May of (units unknown) (unknown) (unknown) (no date) (unknown) (unknown) alcohol intake frequency: 3 or more drinks per day (units unknown) (unknown) (unknown) (no date) (unknown) (unknown) alcohol intake: former (units unknown) (unknown) (unknown) (no date) (unknown) (unknown) and below (units unknown) (unknown) (unknown) (no date) (unknown) (unknown) and cooperative (units unknown) (unknown) (unknown) (no date) (unknown) (unknown) arrhythmia, or acute ischemic changes. (units unknown) (unknown) (unknown) (no date) (unknown) (unknown) at extension and states that she feels symptoms of alcohol withdrawal. Denies (units unknown) (unknown) (unknown) (no date) (unknown) (unknown) being depressed at this time, CIWA is an 8. (units unknown) (unknown) (unknown) (no date) (unknown) (unknown) bpm with rightward axis and normal intervals. No STEMI, ST segment changes, (units unknown) (unknown) (unknown) (no date) (unknown) (unknown) current occupational exposures/hazards: Yes (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 with Pandemic ) (units unknown) (unknown) (unknown) (no date) (unknown) (unknown) cystitis without hematuria (units unknown) (unknown) (unknown) (no date) (unknown) (unknown) cystitis (units unknown) (unknown) (unknown) (no date) (unknown) (unknown) cystitis, she is p.o . tolerant, still pending lab work (units unknown) (unknown) (unknown) (no date) (unknown) (unknown) deliver since it is after 17:00 and the diet order was ordered at 17:30. Samira (units unknown) (unknown) (unknown) (no date) (unknown) (unknown) detox as well. (units unknown) (unknown) (unknown) (no date) (unknown) (unknown) diarrhea or current stool changes. (units unknown) (unknown) (unknown) (no date) (unknown) (unknown) diphenhydramine HCl 25 mg capsule 25 mg PO BEDTIME PRN insomnia #20 02/05/20 (units unknown) (unknown) (unknown) (no date) (unknown) (unknown) diphenhydramine HCl [Benadryl] 25 mg capsule (units unknown) (unknown) (unknown) (no date) (unknown) (unknown) docusate sodium 100 mg capsule 100 mg PO BID #30 caps 02/05/20 (units unknown) (unknown) (unknown) (no date) (unknown) (unknown) docusate sodium [Colace] 100 mg capsule (units unknown) (unknown) (unknown) (no date) (unknown) (unknown) draw her labs (units unknown) (unknown) (unknown) (no date) (unknown) (unknown) education level: college (units unknown) (unknown) (unknown) (no date) (unknown) (unknown) electrolyte abnormalities. 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[employer] (units unknown) (unknown) (unknown) (no date) (unknown) (unknown) fluid, EtOH, and CIWA, ordered 2 mg of IV lorazepam for patient's symptoms, (units unknown) (unknown) (unknown) (no date) (unknown) (unknown) for alcohol related complaints through 2019, and she presented to the [facility] (units unknown) (unknown) (unknown) (no date) (unknown) (unknown) from social work is aware and pending her lab work to arrange for inpatient (units unknown) (unknown) (unknown) (no date) (unknown) (unknown) her urine microscopy came back positive for many bacteria, will treat for acute (units unknown) (unknown) (unknown) (no date) (unknown) (unknown) household members: spouse and children (units unknown) (unknown) (unknown) (no date) (unknown) (unknown) hydrocodone [HYDROCODONE] AdvReac Unknown VOMITING Verified 07/12/22 16:18 (units unknown) (unknown) (unknown) (no date) (unknown) (unknown) hydrocodone. She denies urinary frequency, urgency or flank pain, endorses (units unknown) (unknown) (unknown) (no date) (unknown) (unknown) ibuprofen 600 mg Tablet (units unknown) (unknown) (unknown) (no date) (unknown) (unknown) ibuprofen 600 mg tablet 600 mg PO Q6HR PRN Pain, Mild 07/04/20 (units unknown) (unknown) (unknown) (no date) (unknown) (unknown) injuries, denies chance of , denies any other ingestions, is pleasant, (units unknown) (unknown) (unknown) (no date) (unknown) (unknown) intoxicated endorses symptoms of alcohol withdrawal. Patient states that she (units unknown) (unknown) (unknown) (no date) (unknown) (unknown) intoxicated, pleasant, interactive and comfortable although active and fidgeting (units unknown) (unknown) (unknown) (no date) (unknown) (unknown) is 89, COVID PCR wa s negative, drug screen is negative for all tested agents, (units unknown) (unknown) (unknown) (no date) (unknown) (unknown) is allergic to Reglan, will dose with another 5 mg of Zofran, no QT prolongation (units unknown) (unknown) (unknown) (no date) (unknown) (unknown) limited history currently due to intoxication. She states that she is recently (units unknown) (unknown) (unknown) (no date) (unknown) (unknown) lorazepam at 2 mg fo r this. (units unknown) (unknown) (unknown) (no date) (unknown) (unknown) marital status: (units unknown) (unknown) (unknown) (no date) (unknown) (unknown) medicine with her, she only has the Seroquel. Patient has allergy to Reglan and (units unknown) (unknown) (unknown) (no date) (unknown) (unknown) metoclopramide Allergy Mild RASH/HIVES Verified 07/12/22 16:18 (units unknown) (unknown) (unknown) (no date) (unknown) (unknown) mild anemia but improved from her prior with H+H of 11.5 and 35.3, no evidence (units unknown) (unknown) (unknown) (no date) (unknown) (unknown) nausea vomiting or abdominal pain at this time. Denies any vomiting home or (units unknown) (unknown) (unknown) (no date) (unknown) (unknown) nausea without vomiting. (units unknown) (unknown) (unknown) (no date) (unknown) (unknown) number of children: 1 (units unknown) (unknown) (unknown) (no date) (unknown) (unknown) numbness (units unknown) (unknown) (unknown) (no date) (unknown) (unknown) occupational status: employed (units unknown) (unknown) (unknown) (no date) (unknown) (unknown) of bleeding anywhere , CMP (units unknown) (unknown) (unknown) (no date) (unknown) (unknown) on her EKG, patient is alert and oriented x3, complaining of feeling poorly and (units unknown) (unknown) (unknown) (no date) (unknown) (unknown) ondansetron 4 mg disintegrating 4 mg PO Q6H PRN nausea and 06/12/22 (units unknown) (unknown) (unknown) (no date) (unknown) (unknown) ondansetron 4 mg disintegrating 4 mg PO Q8H PRN nausea and 01/01/20 (units unknown) (unknown) (unknown) (no date) (unknown) (unknown) ondansetron 4 mg disintegrating 4 mg PO Q8H PRN nausea and 02/05/20 (units unknown) (unknown) (unknown) (no date) (unknown) (unknown) ondansetron 4 mg tablet,disintegrating (units unknown) (unknown) (unknown) (no date) (unknown) (unknown) ordered p.o. Ativan for her symptoms and ask our into call lab to come up and (units unknown) (unknown) (unknown) (no date) (unknown) (unknown) prenat.vits,otis,min- i thang-folic 1 tab PO DAILY 12/30/19 07/03/20 (units unknown) (unknown) (unknown) (no date) (unknown) (unknown) prenat.vits,otis,min- i thang-folic Tablet (units unknown) (unknown) (unknown) (no date) (unknown) (unknown) relapsed due to a divorce with her . She used to be a frequent visitor (units unknown) (unknown) (unknown) (no date) (unknown) (unknown) second hand exposure : No (growing up as a child - not currently) (units unknown) (unknown) (unknown) (no date) (unknown) (unknown) seeking help with he r intoxication and wishes to go to detox. She is currently (units unknown) (unknown) (unknown) (no date) (unknown) (unknown) significant tremor o r tongue fasciculation, she has a mild tremor with her arms (units unknown) (unknown) (unknown) (no date) (unknown) (unknown) social work and orders are pending (units unknown) (unknown) (unknown) (no date) (unknown) (unknown) special renee needs: No (units unknown) (unknown) (unknown) (no date) (unknown) (unknown) substance abuse, alcohol intoxication, psychosis, mood disorder, depression (units unknown) (unknown) (unknown) (no date) (unknown) (unknown) substance use type: does not use (units unknown) (unknown) (unknown) (no date) (unknown) (unknown) tablet vomiting #14 tabs (units unknown) (unknown) (unknown) (no date) (unknown) (unknown) tablet vomiting #20 tabs (units unknown) (unknown) (unknown) (no date) (unknown) (unknown) tablet vomiting #30 tabs (units unknown) (unknown) (unknown) (no date) (unknown) (unknown) takes Seroquel 300 m g at night as well as Librium but she does not have this (units unknown) (unknown) (unknown) (no date) (unknown) (unknown) tenderness or exquisite tenderness with exam. (units unknown) (unknown) (unknown) (no date) (unknown) (unknown) that she drinks vodk a and admits to drinking heavily today, states that she took (units unknown) (unknown) (unknown) (no date) (unknown) (unknown) the bottle upside down and started checking from it. She denies any recent (units unknown) (unknown) (unknown) (no date) (unknown) (unknown) thyroid studies are still pending. No significant findings to her CMP. No (units unknown) (unknown) (unknown) (no date) (unknown) (unknown) tramadol 50 mg table t 50 mg PO Q6H PRN pain #10 tabs 06/12/22 (units unknown) (unknown) (unknown) (no date) (unknown) (unknown) tramadol 50 mg tablet (units unknown) (unknown) (unknown) (no date) (unknown) (unknown) tremors, no tachycardia, her CIWA is currently 10, ordered another p.o. dose of (units unknown) (unknown) (unknown) (no date) (unknown) (unknown) well as prior record s if available. (units unknown) (unknown) (unknown) (no date) (unknown) (unknown) wheezing, stridor, o r abnormal breath sounds. No retractions or tachypnea. (units unknown) (unknown) Result panel 2182 (unknown) (no date) (unknown) (unknown) (no value) (units unknown) (unknown) (unknown) (no date) (unknown) (unknown) (1-3) #30 tabs (units unknown) (unknown) (unknown) (no date) (unknown) (unknown) (Benadryl) caps (units unknown) (unknown) (unknown) (no date) (unknown) (unknown) (Colace) (units unknown) (unknown) (unknown) (no date) (unknown) (unknown) (Tylenol) (units unknown) (unknown) (unknown) (no date) (unknown) (unknown) [id number] (units unknown) (unknown) (unknown) (no date) (unknown) (unknown) 07/12/22 07/12/22 07/12/22 Range/Units (units unknown) (unknown) (unknown) (no date) (unknown) (unknown) 07/12/22 16:28 (units unknown) (unknown) (unknown) (no date) (unknown) (unknown) 07/12/22 16:32 (units unknown) (unknown) (unknown) (no date) (unknown) (unknown) 07/12/22 18:28 (units unknown) (unknown) (unknown) (no date) (unknown) (unknown) 07/12/22 19:15 (units unknown) (unknown) (unknown) (no date) (unknown) (unknown) 07/12/22 (units unknown) (unknown) (unknown) (no date) (unknown) (unknown) 1 tab PO DAILY (units unknown) (unknown) (unknown) (no date) (unknown) (unknown) 100 mg PO BID Qty: 3 0 0RF (units unknown) (unknown) (unknown) (no date) (unknown) (unknown) 16:10 07/12/22 (units unknown) (unknown) (unknown) (no date) (unknown) (unknown) 16:32 16:32 16:32 (units unknown) (unknown) (unknown) (no date) (unknown) (unknown) 183 patient still does not have an IV, has not received any IV fluid her (units unknown) (unknown) (unknown) (no date) (unknown) (unknown) 18:53 (units unknown) (unknown) (unknown) (no date) (unknown) (unknown) 1899 still no IV, patient is p.o. challenging, she received her p.o. lorazepam, (units unknown) (unknown) (unknown) (no date) (unknown) (unknown) 1929, patient now feels depressed, she is lying in bed, feeling bad, has (units unknown) (unknown) (unknown) (no date) (unknown) (unknown) 19:15 19:15 19:15 (units unknown) (unknown) (unknown) (no date) (unknown) (unknown) 1999 patient is feeling better now, her lab work is starting to return and ETOH (units unknown) (unknown) (unknown) (no date) (unknown) (unknown) 2002 patient request s to take her home dosing of Seroquel 300 mg, this is (units unknown) (unknown) (unknown) (no date) (unknown) (unknown) 2022 with similar symptoms. She comes in complaining of needing help, states (units unknown) (unknown) (unknown) (no date) (unknown) (unknown) 25 mg PO BEDTIME PRN (Reason: insomnia) Qty: 20 0RF (units unknown) (unknown) (unknown) (no date) (unknown) (unknown) 325 mg PO Q6H PRN (Reason: pain) Qty: 20 0RF (units unknown) (unknown) (unknown) (no date) (unknown) (unknown) 4 mg PO Q6H PRN (Reason: nausea and vomiting) Qty: 14 0RF (units unknown) (unknown) (unknown) (no date) (unknown) (unknown) 4 mg PO Q8H PRN (Reason: nausea and vomiting) Qty: 20 0RF (units unknown) (unknown) (unknown) (no date) (unknown) (unknown) 4 mg PO Q8H PRN (Reason: nausea and vomiting) Qty: 30 0RF (units unknown) (unknown) (unknown) (no date) (unknown) (unknown) 50 mg PO Q6H PRN (Reason: pain) Qty: 10 0RF (units unknown) (unknown) (unknown) (no date) (unknown) (unknown) 600 mg PO Q6HR PRN (Reason: Pain, Mild (1-3)) Qty: 30 0RF (units unknown) (unknown) (unknown) (no date) (unknown) (unknown) 750 mL of time. She just she has nothing to do but relapsed. This 3 weeks ago (units unknown) (unknown) (unknown) (no date) (unknown) (unknown) 9 points (units unknown) (unknown) (unknown) (no date) (unknown) (unknown) ALT (<35) IU/L (units unknown) (unknown) (unknown) (no date) (unknown) (unknown) ALT 21 (<35) IU/L (units unknown) (unknown) (unknown) (no date) (unknown) (unknown) AST (14-36) IU/L (units unknown) (unknown) (unknown) (no date) (unknown) (unknown) AST 67 H (14-36) IU/L (units unknown) (unknown) (unknown) (no date) (unknown) (unknown) Acetaminophen < 10 (10-30) ug/mL (units unknown) (unknown) (unknown) (no date) (unknown) (unknown) Acetaminophen (10-30 ) ug/mL (units unknown) (unknown) (unknown) (no date) (unknown) (unknown) Acetaminophen Stat (units unknown) (unknown) (unknown) (no date) (unknown) (unknown) Acute cystitis (units unknown) (unknown) (unknown) (no date) (unknown) (unknown) Age/Sex: 31 / F (units unknown) (unknown) (unknown) (no date) (unknown) (unknown) Agitation ?> 2 = (More severe symptoms) (units unknown) (unknown) (unknown) (no date) (unknown) (unknown) Albumin (3.5-5.0) g/dL (units unknown) (unknown) (unknown) (no date) (unknown) (unknown) Albumin 4.3 (3.5-5.0 ) g/dL (units unknown) (unknown) (unknown) (no date) (unknown) (unknown) Albumin/Globulin Ratio (1.0-2.8) (units unknown) (unknown) (unknown) (no date) (unknown) (unknown) Albumin/Globulin Ratio 1.4 (1.0-2.8) (units unknown) (unknown) (unknown) (no date) (unknown) (unknown) Alcohol use disorder (units unknown) (unknown) (unknown) (no date) (unknown) (unknown) Alcoholism (units unknown) (unknown) (unknown) (no date) (unknown) (unknown) Alkaline Phosphatase (38-126) U/L (units unknown) (unknown) (unknown) (no date) (unknown) (unknown) Alkaline Phosphatase 98 (38-126) U/L (units unknown) (unknown) (unknown) (no date) (unknown) (unknown) Allergies (units unknown) (unknown) (unknown) (no date) (unknown) (unknown) Allergy/AdvReac Type Severity Reaction Status Date / Time (units unknown) (unknown) (unknown) (no date) (unknown) (unknown) Anemia (-2018) (units unknown) (unknown) (unknown) (no date) (unknown) (unknown) Anxiety ?> 2 = (More severe symptoms) (units unknown) (unknown) (unknown) (no date) (unknown) (unknown) Auditory disturbance s ?> 1 = Very mild harshness or ability to frighten (units unknown) (unknown) (unknown) (no date) (unknown) (unknown) BUN (7-17) mg/dL (units unknown) (unknown) (unknown) (no date) (unknown) (unknown) BUN 9 (7-17) mg/dL (units unknown) (unknown) (unknown) (no date) (unknown) (unknown) BUN/Creatinine Ratio (6-22) (units unknown) (unknown) (unknown) (no date) (unknown) (unknown) BUN/Creatinine Ratio 11.0 (6-22) (units unknown) (unknown) (unknown) (no date) (unknown) (unknown) Baso # (Auto) (0-100 ) /uL (units unknown) (unknown) (unknown) (no date) (unknown) (unknown) Baso # (Auto) 0 (0-100) /uL (units unknown) (unknown) (unknown) (no date) (unknown) (unknown) Baso % (Auto) (0-2) % (units unknown) (unknown) (unknown) (no date) (unknown) (unknown) Baso % (Auto) 0.9 (0-2) % (units unknown) (unknown) (unknown) (no date) (unknown) (unknown) Bedside Urine Bilirubin - Negative (units unknown) (unknown) (unknown) (no date) (unknown) (unknown) Bedside Urine Glucos e Negative (units unknown) (unknown) (unknown) (no date) (unknown) (unknown) Bedside Urine Ketone - Negative (units unknown) (unknown) (unknown) (no date) (unknown) (unknown) Bedside Urine Leukocytes - Negative (units unknown) (unknown) (unknown) (no date) (unknown) (unknown) Bedside Urine Nitrit e + Positive (units unknown) (unknown) (unknown) (no date) (unknown) (unknown) Bedside Urine Occult Blood - Negative (units unknown) (unknown) (unknown) (no date) (unknown) (unknown) Bedside Urine Protei n - Negative (units unknown) (unknown) (unknown) (no date) (unknown) (unknown) Bedside Urine Urobilinogen - Negative (units unknown) (unknown) (unknown) (no date) (unknown) (unknown) Bedside Urine pH 6.0 (units unknown) (unknown) (unknown) (no date) (unknown) (unknown) Blood Pressure 112/6 2 07/12/22 16:10 (units unknown) (unknown) (unknown) (no date) (unknown) (unknown) Blood Pressure 112/62 (units unknown) (unknown) (unknown) (no date) (unknown) (unknown) Blood Pressure [Left Arm] 100/59 L (units unknown) (unknown) (unknown) (no date) (unknown) (unknown) CIWA is now worse an d she has tremors, anxiety is worsening and agitation, (units unknown) (unknown) (unknown) (no date) (unknown) (unknown) CIWA-Ar for Alcohol Withdrawal from [email or web address] on 07/12/2022 (units unknown) (unknown) (unknown) (no date) (unknown) (unknown) COVID19 -Nasal RAPID/Pre-Proc Stat (units unknown) (unknown) (unknown) (no date) (unknown) (unknown) Calcium (8.4-10.2) mg/dL (units unknown) (unknown) (unknown) (no date) (unknown) (unknown) Calcium 8.0 L (8.4-10.2) mg/dL (units unknown) (unknown) (unknown) (no date) (unknown) (unknown) Carbon Dioxide (22-32) mmol/L (units unknown) (unknown) (unknown) (no date) (unknown) (unknown) Carbon Dioxide 23 (22-32) mmol/L (units unknown) (unknown) (unknown) (no date) (unknown) (unknown) Cardiovascular: regular rate and rhythm, no peripheral edema, warm extremities (units unknown) (unknown) (unknown) (no date) (unknown) (unknown) Cephalexin HCl (Cephalexin 250 Mg Capsule) 500 mg PO Q6H SANDY (units unknown) (unknown) (unknown) (no date) (unknown) (unknown) Chief Complaint: Alcohol intoxication, seeking detox (units unknown) (unknown) (unknown) (no date) (unknown) (unknown) Chief Complaint: Toxicology Problem (units unknown) (unknown) (unknown) (no date) (unknown) (unknown) Chloride (98-107) mmol/L (units unknown) (unknown) (unknown) (no date) (unknown) (unknown) Chloride 104 (98-107 ) mmol/L (units unknown) (unknown) (unknown) (no date) (unknown) (unknown) Clinical Impression: (units unknown) (unknown) (unknown) (no date) (unknown) (unknown) Clinical decision rules or scores evaluated: CIWA of 9 at 1753 (units unknown) (unknown) (unknown) (no date) (unknown) (unknown) Complete Blood Count AUTO DIFF Stat (units unknown) (unknown) (unknown) (no date) (unknown) (unknown) Comprehensive Metabolic Panel Stat (units unknown) (unknown) (unknown) (no date) (unknown) (unknown) 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 (units unknown) (unknown) (unknown) (no date) (unknown) (unknown) Course of care: Patient is a difficult IV stick, ordered IV with lab work, (units unknown) (unknown) (unknown) (no date) (unknown) (unknown) Course (units unknown) (unknown) (unknown) (no date) (unknown) (unknown) Creatinine (0.52-1.04) mg/dL (units unknown) (unknown) (unknown) (no date) (unknown) (unknown) Creatinine 0.82 (0.52-1.04) mg/dL (units unknown) (unknown) (unknown) (no date) (unknown) (unknown) : 1990 Acct:[id number] (units unknown) (unknown) (unknown) (no date) (unknown) (unknown) Date of Service: 07/12/22 (units unknown) (unknown) (unknown) (no date) (unknown) (unknown) Departure (units unknown) (unknown) (unknown) (no date) (unknown) (unknown) Differential diagnoses include but are not limited to: Alcohol withdrawal, (units unknown) (unknown) (unknown) (no date) (unknown) (unknown) Discharge Plan (units unknown) (unknown) (unknown) (no date) (unknown) (unknown) Discontinued Medications (units unknown) (unknown) (unknown) (no date) (unknown) (unknown) Documented By: KB (units unknown) (unknown) (unknown) (no date) (unknown) (unknown) Documented By: OW (units unknown) (unknown) (unknown) (no date) (unknown) (unknown) ECG Data (units unknown) (unknown) (unknown) (no date) (unknown) (unknown) ED Orders (units unknown) (unknown) (unknown) (no date) (unknown) (unknown) EKG independently reviewed by myself at 1830 reveals normal sinus rhythm at 72 (units unknown) (unknown) (unknown) (no date) (unknown) (unknown) EKG-12 Lead Stat (units unknown) (unknown) (unknown) (no date) (unknown) (unknown) ER Physician: Reinaldo Arthur D.O. (units unknown) (unknown) (unknown) (no date) (unknown) (unknown) Emergency Report (units unknown) (unknown) (unknown) (no date) (unknown) (unknown) Eos # (Auto) (0-450) /uL (units unknown) (unknown) (unknown) (no date) (unknown) (unknown) Eos # (Auto) 0 (0-450) /uL (units unknown) (unknown) (unknown) (no date) (unknown) (unknown) Eos % (Auto) (2-4) % (units unknown) (unknown) (unknown) (no date) (unknown) (unknown) Eos % (Auto) 0.3 L (2-4) % (units unknown) (unknown) (unknown) (no date) (unknown) (unknown) Esterase (units unknown) (unknown) (unknown) (no date) (unknown) (unknown) Estimated GFR > 60 (>60) mL/min (units unknown) (unknown) (unknown) (no date) (unknown) (unknown) Estimated GFR (>60) mL/min (units unknown) (unknown) (unknown) (no date) (unknown) (unknown) Ethanol (ETOH) Stat (units unknown) (unknown) (unknown) (no date) (unknown) (unknown) Ethyl Alcohol ( - 10 ) mg/dL (units unknown) (unknown) (unknown) (no date) (unknown) (unknown) Ethyl Alcohol 338 H ( - 10) mg/dL (units unknown) (unknown) (unknown) (no date) (unknown) (unknown) Exam Narrative: (units unknown) (unknown) (unknown) (no date) (unknown) (unknown) Exam (units unknown) (unknown) (unknown) (no date) (unknown) (unknown) Family History (units unknown) (unknown) (unknown) (no date) (unknown) (unknown) Family/Other Alcoholism (units unknown) (unknown) (unknown) (no date) (unknown) (unknown) Family/Other Diabete s mellitus (units unknown) (unknown) (unknown) (no date) (unknown) (unknown) Father Alcoholism (units unknown) (unknown) (unknown) (no date) (unknown) (unknown) Tonia Schneider MD [Primary Care Provider] (units unknown) (unknown) (unknown) (no date) (unknown) (unknown) Folic Acid (Folic Acid 1 Mg Tablet) 1 mg PO DAILY SANDY (units unknown) (unknown) (unknown) (no date) (unknown) (unknown) Free T4 (0.78-2.19) ng/dL (units unknown) (unknown) (unknown) (no date) (unknown) (unknown) Free T4 0.93 (0.78-2.19) ng/dL (units unknown) (unknown) (unknown) (no date) (unknown) (unknown) Free T4, Direct Thyroxine Stat (units unknown) (unknown) (unknown) (no date) (unknown) (unknown) GI: abdomen soft, nontender to palpation, nondistended, without masses, rebound (units unknown) (unknown) (unknown) (no date) (unknown) (unknown) General (units unknown) (unknown) (unknown) (no date) (unknown) (unknown) General: cooperative , comfortable, in no acute distress, well groomed, appears (units unknown) (unknown) (unknown) (no date) (unknown) (unknown) Globulin (1.7-4.1) g/dL (units unknown) (unknown) (unknown) (no date) (unknown) (unknown) Globulin 3.0 (1.7-4.1) g/dL (units unknown) (unknown) (unknown) (no date) (unknown) (unknown) Glucose (70-100) mg/dL (units unknown) (unknown) (unknown) (no date) (unknown) (unknown) Glucose 111 H (70-100) mg/dL (units unknown) (unknown) (unknown) (no date) (unknown) (unknown) Grandfather Smoker (units unknown) (unknown) (unknown) (no date) (unknown) (unknown) Grandfather Unknown whether patient has any health problems (units unknown) (unknown) (unknown) (no date) (unknown) (unknown) Grandmother Diabetes mellitus (units unknown) (unknown) (unknown) (no date) (unknown) (unknown) Grandmother Hypoglycemia (units unknown) (unknown) (unknown) (no date) (unknown) (unknown) H/O dilation and curettage (-12/14/16) (units unknown) (unknown) (unknown) (no date) (unknown) (unknown) H/O wisdom tooth extraction () (units unknown) (unknown) (unknown) (no date) (unknown) (unknown) HEENT: symmetrical facial expressions, dry mucous membranes (units unknown) (unknown) (unknown) (no date) (unknown) (unknown) HPI - Alcohol (units unknown) (unknown) (unknown) (no date) (unknown) (unknown) HPI narrative: (units unknown) (unknown) (unknown) (no date) (unknown) (unknown) Hct (36-46) % (units unknown) (unknown) (unknown) (no date) (unknown) (unknown) Hct 35.3 L (36-46) % (units unknown) (unknown) (unknown) (no date) (unknown) (unknown) Headache/fullness in head ?> 1 = Very mild (units unknown) (unknown) (unknown) (no date) (unknown) (unknown) Hematuria presence: without hematuria Qualified Code(s): N30.00 - Acute (units unknown) (unknown) (unknown) (no date) (unknown) (unknown) Hgb (12.0-16.0) g/dL (units unknown) (unknown) (unknown) (no date) (unknown) (unknown) Hgb 11.5 L (12.0-16.0) g/dL (units unknown) (unknown) (unknown) (no date) (unknown) (unknown) History of Present Illness (units unknown) (unknown) (unknown) (no date) (unknown) (unknown) Home Medications (units unknown) (unknown) (unknown) (no date) (unknown) (unknown) I have independently reviewed the patient's vital signs and nursing notes as (units unknown) (unknown) (unknown) (no date) (unknown) (unknown) INPUTS: (units unknown) (unknown) (unknown) (no date) (unknown) (unknown) Independent historian: Patient (units unknown) (unknown) (unknown) (no date) (unknown) (unknown) Initial Vital Signs (units unknown) (unknown) (unknown) (no date) (unknown) (unknown) Initial Vital Signs: (units unknown) (unknown) (unknown) (no date) (unknown) (unknown) Insomnia (units unknown) (unknown) (unknown) (no date) (unknown) (unknown) Interpretation: (units unknown) (unknown) (unknown) (no date) (unknown) (unknown) [address] [address] (units unknown) (unknown) (unknown) (no date) (unknown) (unknown) Lab Data (units unknown) (unknown) (unknown) (no date) (unknown) (unknown) Lab Results (units unknown) (unknown) (unknown) (no date) (unknown) (unknown) Labs: (units unknown) (unknown) (unknown) (no date) (unknown) (unknown) Last Admin: 07/12/22 18:39 Dose: 4 mg (units unknown) (unknown) (unknown) (no date) (unknown) (unknown) Last Admin: 07/12/22 18:40 Dose: 1 mg (units unknown) (unknown) (unknown) (no date) (unknown) (unknown) Last Admin: 07/12/22 18:56 Dose: Not Given (units unknown) (unknown) (unknown) (no date) (unknown) (unknown) Last Admin: 07/12/22 19:47 Dose: 500 mg (units unknown) (unknown) (unknown) (no date) (unknown) (unknown) Last Admin: 07/12/22 19:48 Dose: 2 mg (units unknown) (unknown) (unknown) (no date) (unknown) (unknown) Last Admin: 07/12/22 19:49 Dose: 100 mg (units unknown) (unknown) (unknown) (no date) (unknown) (unknown) Librium but she does not have this medicine with her, she only has the Seroquel. (units unknown) (unknown) (unknown) (no date) (unknown) (unknown) Lorazepam (Lorazepam 0.5 Mg Tablet) 1 mg PO NOW ONE (units unknown) (unknown) (unknown) (no date) (unknown) (unknown) Lorazepam (Lorazepam 0.5 Mg Tablet) 2 mg PO NOW ONE (units unknown) (unknown) (unknown) (no date) (unknown) (unknown) Lorazepam (Lorazepam 2 Mg/Ml Inj) 2 mg IV NOW ONE (units unknown) (unknown) (unknown) (no date) (unknown) (unknown) Lymph # (Auto) (4440-3910) /uL (units unknown) (unknown) (unknown) (no date) (unknown) (unknown) Lymph # (Auto) 1700 (1214-8475) /uL (units unknown) (unknown) (unknown) (no date) (unknown) (unknown) Lymph % (Auto) (25-40) % (units unknown) (unknown) (unknown) (no date) (unknown) (unknown) Lymph % (Auto) 50.6 H (25-40) % (units unknown) (unknown) (unknown) (no date) (unknown) (unknown) MCH (26-34) PG (units unknown) (unknown) (unknown) (no date) (unknown) (unknown) MCH 26.0 (26-34) PG (units unknown) (unknown) (unknown) (no date) (unknown) (unknown) MCHC (30-36) % (units unknown) (unknown) (unknown) (no date) (unknown) (unknown) MCHC 32.7 (30-36) % (units unknown) (unknown) (unknown) (no date) (unknown) (unknown) MCV (80-100) fL (units unknown) (unknown) (unknown) (no date) (unknown) (unknown) MCV 79.5 L (80-100) fL (units unknown) (unknown) (unknown) (no date) (unknown) (unknown) MDM - Alcohol (units unknown) (unknown) (unknown) (no date) (unknown) (unknown) MDM Narrative (units unknown) (unknown) (unknown) (no date) (unknown) (unknown) MIPS: This encounter doesn't have any diagnosis' associated with MIPS criteria. (units unknown) (unknown) (unknown) (no date) (unknown) (unknown) MSK: moves all extremities, neurovascularly intact, no weakness, normal tone no (units unknown) (unknown) (unknown) (no date) (unknown) (unknown) Medical History (units unknown) (unknown) (unknown) (no date) (unknown) (unknown) Medical decision making narrative: (units unknown) (unknown) (unknown) (no date) (unknown) (unknown) Medication Instructions Recorded Confirmed (units unknown) (unknown) (unknown) (no date) (unknown) (unknown) Medication Instructions Recorded (units unknown) (unknown) (unknown) (no date) (unknown) (unknown) Menometrorrhagia (units unknown) (unknown) (unknown) (no date) (unknown) (unknown) Mode of arrival: Ambulatory (units unknown) (unknown) (unknown) (no date) (unknown) (unknown) [place] # (Auto) (0-900 ) /uL (units unknown) (unknown) (unknown) (no date) (unknown) (unknown) [place] # (Auto) 100 (0-900) /uL (units unknown) (unknown) (unknown) (no date) (unknown) (unknown) [place] % (Auto) (3-14) % (units unknown) (unknown) (unknown) (no date) (unknown) (unknown) [place] % (Auto) 2.7 L (3-14) % (units unknown) (unknown) (unknown) (no date) (unknown) (unknown) Mother Diabetes mellitus (units unknown) (unknown) (unknown) (no date) (unknown) (unknown) Narrative (units unknown) (unknown) (unknown) (no date) (unknown) (unknown) Nausea/vomiting ?> 0 = No nausea and no vomiting (units unknown) (unknown) (unknown) (no date) (unknown) (unknown) Neuro: normal speech and cognition, A+O x3, ambulatory, clear speech (units unknown) (unknown) (unknown) (no date) (unknown) (unknown) Neut # (Auto) (7095-7644) /uL (units unknown) (unknown) (unknown) (no date) (unknown) (unknown) Neut # (Auto) 1500 (5991-3989) /uL (units unknown) (unknown) (unknown) (no date) (unknown) (unknown) Neut % (Auto) (50-75 ) % (units unknown) (unknown) (unknown) (no date) (unknown) (unknown) Neut % (Auto) 45.5 L (50-75) % (units unknown) (unknown) (unknown) (no date) (unknown) (unknown) No Action (units unknown) (unknown) (unknown) (no date) (unknown) (unknown) Obesity (units unknown) (unknown) (unknown) (no date) (unknown) (unknown) Ondansetron HCl (Ondansetron 4 Mg Odt) 4 mg SL NOW ONE (units unknown) (unknown) (unknown) (no date) (unknown) (unknown) Ondansetron HCl (Ondansetron 4 Mg/2 Ml Inj) 4 mg IV Q6HR PRN (units unknown) (unknown) (unknown) (no date) (unknown) (unknown) Ordered: (units unknown) (unknown) (unknown) (no date) (unknown) (unknown) Orders (units unknown) (unknown) (unknown) (no date) (unknown) (unknown) Orientation/clouding of sensorium ?> 0 = Oriented, can do serial additions (units unknown) (unknown) (unknown) (no date) (unknown) (unknown) Overweight (units unknown) (unknown) (unknown) (no date) (unknown) (unknown) Oxygen Delivery Method Room Air 07/12/22 16:10 (units unknown) (unknown) (unknown) (no date) (unknown) (unknown) Oxygen Delivery Method Room Air Room Air (units unknown) (unknown) (unknown) (no date) (unknown) (unknown) PRN Reason: Nausea And Vomiting (units unknown) (unknown) (unknown) (no date) (unknown) (unknown) Paroxysmal sweats ?> 0 = No sweat visible (units unknown) (unknown) (unknown) (no date) (unknown) (unknown) Patient [facility]position: [facility] (units unknown) (unknown) (unknown) (no date) (unknown) (unknown) Patient History (units unknown) (unknown) (unknown) (no date) (unknown) (unknown) Patient has allergy to Reglan and hydrocodone. She denies urinary frequency, (units unknown) (unknown) (unknown) (no date) (unknown) (unknown) Patient: Sarah Connors MR#: M (units unknown) (unknown) (unknown) (no date) (unknown) (unknown) Patients with scores >= may require medication for withdrawal. (units unknown) (unknown) (unknown) (no date) (unknown) (unknown) Pertinent lab findings reviewed: CBC is pertinent for mild leukopenia of 3.3, (units unknown) (unknown) (unknown) (no date) (unknown) (unknown) Plt Count (150-400) X103/uL (units unknown) (unknown) (unknown) (no date) (unknown) (unknown) Plt Count 226 (150-400) X103/uL (units unknown) (unknown) (unknown) (no date) (unknown) (unknown) Point of Care Testing (units unknown) (unknown) (unknown) (no date) (unknown) (unknown) Potassium (3.4-5.1) mmol/L (units unknown) (unknown) (unknown) (no date) (unknown) (unknown) Potassium 3.9 (3.4-5.1) mmol/L (units unknown) (unknown) (unknown) (no date) (unknown) (unknown) Test Results Negative (units unknown) (unknown) (unknown) (no date) (unknown) (unknown) Prescriptions: (units unknown) (unknown) (unknown) (no date) (unknown) (unknown) Previous Rx's (units unknown) (unknown) (unknown) (no date) (unknown) (unknown) Psych: mental status is grossly normal, congruent mood, normal affect, pleasant (units unknown) (unknown) (unknown) (no date) (unknown) (unknown) Pulse Oximetry 99 07/12/22 16:10 (units unknown) (unknown) (unknown) (no date) (unknown) (unknown) Pulse Oximetry 99 99 (units unknown) (unknown) (unknown) (no date) (unknown) (unknown) Pulse Rate 82 07/12/22 16:10 (units unknown) (unknown) (unknown) (no date) (unknown) (unknown) Pulse Rate 82 86 (units unknown) (unknown) (unknown) (no date) (unknown) (unknown) Qualifiers: (units unknown) (unknown) (unknown) (no date) (unknown) (unknown) Questions are addressed and there is agreement with the plan and for follow-up. (units unknown) (unknown) (unknown) (no date) (unknown) (unknown) RBC (4.0-5.2) X106/uL (units unknown) (unknown) (unknown) (no date) (unknown) (unknown) RBC 4.44 (4.0-5.2) X106/uL (units unknown) (unknown) (unknown) (no date) (unknown) (unknown) RDW (11.6-14.8) % (units unknown) (unknown) (unknown) (no date) (unknown) (unknown) RDW 17.3 H (11.6-14.8) % (units unknown) (unknown) (unknown) (no date) (unknown) (unknown) RESULT SUMMARY: (units unknown) (unknown) (unknown) (no date) (unknown) (unknown) ROS Unobtainable: Al l systems reviewed + are unremarkable except as noted in HPI (units unknown) (unknown) (unknown) (no date) (unknown) (unknown) Referrals: (units unknown) (unknown) (unknown) (no date) (unknown) (unknown) Related Data (units unknown) (unknown) (unknown) (no date) (unknown) (unknown) Respiratory Rate 14 07/12/22 16:10 (units unknown) (unknown) (unknown) (no date) (unknown) (unknown) Respiratory Rate 14 22 (units unknown) (unknown) (unknown) (no date) (unknown) (unknown) Respiratory: normal effort, able to speak in complete sentences, without (units unknown) (unknown) (unknown) (no date) (unknown) (unknown) Review of Systems (units unknown) (unknown) (unknown) (no date) (unknown) (unknown) Reviewed vitals sign s and nursing notes. (units unknown) (unknown) (unknown) (no date) (unknown) (unknown) S/P myringotomy with insertion of tube (units unknown) (unknown) (unknown) (no date) (unknown) (unknown) SARS-CoV-2 (PCR) (Negative) (units unknown) (unknown) (unknown) (no date) (unknown) (unknown) SARS-CoV-2 (PCR) Negative (Negative) (units unknown) (unknown) (unknown) (no date) (unknown) (unknown) (spontaneous vaginal delivery) (-09/05/18) (units unknown) (unknown) (unknown) (no date) (unknown) (unknown) Salicylate Stat (units unknown) (unknown) (unknown) (no date) (unknown) (unknown) Salicylates < 1.0 (<20) mg/dL (units unknown) (unknown) (unknown) (no date) (unknown) (unknown) Salicylates (<20) mg/dL (units unknown) (unknown) (unknown) (no date) (unknown) (unknown) She was given a couple water, a diet order was ordered however they may not (units unknown) (unknown) (unknown) (no date) (unknown) (unknown) Signed By: (units unknown) (unknown) (unknown) (no date) (unknown) (unknown) Skin: brisk capillar y refill, without pallor or erythema (units unknown) (unknown) (unknown) (no date) (unknown) (unknown) Smoker (units unknown) (unknown) (unknown) (no date) (unknown) (unknown) [place] in the past. She has been sober for a total of 18 (units unknown) (unknown) (unknown) (no date) (unknown) (unknown) Smoking Status: Former smoker (units unknown) (unknown) (unknown) (no date) (unknown) (unknown) Social History (units unknown) (unknown) (unknown) (no date) (unknown) (unknown) Social consideration s that may affect disposition: none (units unknown) (unknown) (unknown) (no date) (unknown) (unknown) Sodium (137-145) mmol/L (units unknown) (unknown) (unknown) (no date) (unknown) (unknown) Sodium 140 (137-145) mmol/L (units unknown) (unknown) (unknown) (no date) (unknown) (unknown) Sodium Chloride (Normal Saline 0.9%) 1,000 mls @ 1,000 mls/hr IV BOLUS ONE (units unknown) (unknown) (unknown) (no date) (unknown) (unknown) Source: patient (units unknown) (unknown) (unknown) (no date) (unknown) (unknown) Stated Complaint: Stress/Depression (units unknown) (unknown) (unknown) (no date) (unknown) (unknown) Stop: 07/12/22 17:33 (units unknown) (unknown) (unknown) (no date) (unknown) (unknown) Stop: 07/12/22 17:45 (units unknown) (unknown) (unknown) (no date) (unknown) (unknown) Stop: 07/12/22 18:28 (units unknown) (unknown) (unknown) (no date) (unknown) (unknown) Stop: 07/12/22 18:31 (units unknown) (unknown) (unknown) (no date) (unknown) (unknown) Stop: 07/12/22 19:25 (units unknown) (unknown) (unknown) (no date) (unknown) (unknown) Stop: 07/12/22 20:03 (units unknown) (unknown) (unknown) (no date) (unknown) (unknown) Substance Use Type: does not use (units unknown) (unknown) (unknown) (no date) (unknown) (unknown) Surgical History (units unknown) (unknown) (unknown) (no date) (unknown) (unknown) Tactile disturbances ?> 1 = Very mild itching, pin and needles, burning, or (units unknown) (unknown) (unknown) (no date) (unknown) (unknown) Temperature 97.2 F L 07/12/22 16:10 (units unknown) (unknown) (unknown) (no date) (unknown) (unknown) Temperature 97.2 F L (units unknown) (unknown) (unknown) (no date) (unknown) (unknown) Thiamine HCl (Thiamine 100 Mg Tablet) 100 mg PO NOW ONE (units unknown) (unknown) (unknown) (no date) (unknown) (unknown) Thiamine HCl 200 mg/ Sodium (Chloride) 102 mls @ 408 mls/hr IV NOW ONE (units unknown) (unknown) (unknown) (no date) (unknown) (unknown) This is a 31-year-ol d female with history of alcohol abuse and appears to have (units unknown) (unknown) (unknown) (no date) (unknown) (unknown) Thyroid Stimulating Hormone Stat (units unknown) (unknown) (unknown) (no date) (unknown) (unknown) Time Seen by Provider: 07/12/22 17:05 (units unknown) (unknown) (unknown) (no date) (unknown) (unknown) Total Bilirubin (0.2-1.3) mg/dL (units unknown) (unknown) (unknown) (no date) (unknown) (unknown) Total Bilirubin 0.4 (0.2-1.3) mg/dL (units unknown) (unknown) (unknown) (no date) (unknown) (unknown) Total Protein (6.3-8.2) g/dL (units unknown) (unknown) (unknown) (no date) (unknown) (unknown) Total Protein 7.3 (6.3-8.2) g/dL (units unknown) (unknown) (unknown) (no date) (unknown) (unknown) Tremor ?> 1 = Not visible, but can be felt fingertip to fingertip (units unknown) (unknown) (unknown) (no date) (unknown) (unknown) U Benzodiazepines Scrn (Negative) (units unknown) (unknown) (unknown) (no date) (unknown) (unknown) U Benzodiazepines Scrn Negative (Negative) (units unknown) (unknown) (unknown) (no date) (unknown) (unknown) U Marijuana (THC) Screen (Negative) (units unknown) (unknown) (unknown) (no date) (unknown) (unknown) U Marijuana (THC) Screen Negative (Negative) (units unknown) (unknown) (unknown) (no date) (unknown) (unknown) U Methamphetamines Scrn (Negative) (units unknown) (unknown) (unknown) (no date) (unknown) (unknown) U Methamphetamines Scrn Negative (Negative) (units unknown) (unknown) (unknown) (no date) (unknown) (unknown) U Opiates 300ng/mL cut (Negative) (units unknown) (unknown) (unknown) (no date) (unknown) (unknown) U Opiates 300ng/mL cut Negative (Negative) (units unknown) (unknown) (unknown) (no date) (unknown) (unknown) U Tricyclic Antidepress (Negative) (units unknown) (unknown) (unknown) (no date) (unknown) (unknown) U Tricyclic Antidepress Negative (Negative) (units unknown) (unknown) (unknown) (no date) (unknown) (unknown) Ur Amphetamines Screen (Negative) (units unknown) (unknown) (unknown) (no date) (unknown) (unknown) Ur Amphetamines Screen Negative (Negative) (units unknown) (unknown) (unknown) (no date) (unknown) (unknown) Ur Barbiturates Screen (Negative) (units unknown) (unknown) (unknown) (no date) (unknown) (unknown) Ur Barbiturates Screen Negative (Negative) (units unknown) (unknown) (unknown) (no date) (unknown) (unknown) Ur Culture Indicated ? Specimen cultured (units unknown) (unknown) (unknown) (no date) (unknown) (unknown) Ur Culture Indicated? (units unknown) (unknown) (unknown) (no date) (unknown) (unknown) Ur MDMA Scrn (Ecstasy) (Negative) (units unknown) (unknown) (unknown) (no date) (unknown) (unknown) Ur MDMA Scrn (Ecstasy) Negative (Negative) (units unknown) (unknown) (unknown) (no date) (unknown) (unknown) Ur Oxycodone Screen (Negative) (units unknown) (unknown) (unknown) (no date) (unknown) (unknown) Ur Oxycodone Screen Negative (Negative) (units unknown) (unknown) (unknown) (no date) (unknown) (unknown) Ur Phencyclidine Scr n (Negative) (units unknown) (unknown) (unknown) (no date) (unknown) (unknown) Ur Phencyclidine Scr n Negative (Negative) (units unknown) (unknown) (unknown) (no date) (unknown) (unknown) Ur Squamous Epith Cells (0-5/HPF) (units unknown) (unknown) (unknown) (no date) (unknown) (unknown) Ur Squamous Epith Cells 1-5 /hpf (0-5/HPF) (units unknown) (unknown) (unknown) (no date) (unknown) (unknown) Urine Bacteria (None) (units unknown) (unknown) (unknown) (no date) (unknown) (unknown) Urine Bacteria Many (>30) H (None) (units unknown) (unknown) (unknown) (no date) (unknown) (unknown) Urine Cocaine Screen (Negative) (units unknown) (unknown) (unknown) (no date) (unknown) (unknown) Urine Cocaine Screen Negative (Negative) (units unknown) (unknown) (unknown) (no date) (unknown) (unknown) Urine Culture Stat (units unknown) (unknown) (unknown) (no date) (unknown) (unknown) Urine Dip (units unknown) (unknown) (unknown) (no date) (unknown) (unknown) Urine Drug Screen, Rapid Stat (units unknown) (unknown) (unknown) (no date) (unknown) (unknown) Urine Methadone Screen (Negative) (units unknown) (unknown) (unknown) (no date) (unknown) (unknown) Urine Methadone Screen Negative (Negative) (units unknown) (unknown) (unknown) (no date) (unknown) (unknown) Urine Microscopic Stat (units unknown) (unknown) (unknown) (no date) (unknown) (unknown) Urine RBC (0-5/HPF) (units unknown) (unknown) (unknown) (no date) (unknown) (unknown) Urine RBC 1-5/hpf (0-5/HPF) (units unknown) (unknown) (unknown) (no date) (unknown) (unknown) Urine Specific [place] 1.015 (units unknown) (unknown) (unknown) (no date) (unknown) (unknown) Urine WBC (0-5/HPF) (units unknown) (unknown) (unknown) (no date) (unknown) (unknown) Urine WBC 1-5/hpf (0-5/HPF) (units unknown) (unknown) (unknown) (no date) (unknown) (unknown) Urine microscopy wit h many bacteria, pending for culture, will treat for acute (units unknown) (unknown) (unknown) (no date) (unknown) (unknown) Visual disturbances ?> 1 = Very mild sensitivity (units unknown) (unknown) (unknown) (no date) (unknown) (unknown) Vital Signs - 8 hr (units unknown) (unknown) (unknown) (no date) (unknown) (unknown) Vital Signs (units unknown) (unknown) (unknown) (no date) (unknown) (unknown) Vital signs: (units unknown) (unknown) (unknown) (no date) (unknown) (unknown) WBC (4.5-11.0) X103/uL (units unknown) (unknown) (unknown) (no date) (unknown) (unknown) WBC 3.3 L (4.5-11.0) X103/uL (units unknown) (unknown) (unknown) (no date) (unknown) (unknown) [Embedded Image Not Available] (units unknown) (unknown) (unknown) (no date) (unknown) (unknown) [METOCLOPRAMIDE] (units unknown) (unknown) (unknown) (no date) (unknown) (unknown) acceptable. She is nauseated, without vomiting, received Zofran previously and (units unknown) (unknown) (unknown) (no date) (unknown) (unknown) acetaminophen 325 mg tablet 325 mg PO Q6H PRN pain #20 tabs 02/05/20 (units unknown) (unknown) (unknown) (no date) (unknown) (unknown) acetaminophen [Tylenol] 325 mg tablet (units unknown) (unknown) (unknown) (no date) (unknown) (unknown) alcohol in 300s, she was last here in the emergency department in May of (units unknown) (unknown) (unknown) (no date) (unknown) (unknown) alcohol intake frequency: 3 or more drinks per day (units unknown) (unknown) (unknown) (no date) (unknown) (unknown) alcohol intake: former (units unknown) (unknown) (unknown) (no date) (unknown) (unknown) and below (units unknown) (unknown) (unknown) (no date) (unknown) (unknown) and cooperative (units unknown) (unknown) (unknown) (no date) (unknown) (unknown) and she drinking daily since this happened. She wants rehab. She has been (units unknown) (unknown) (unknown) (no date) (unknown) (unknown) arrhythmia, or acute ischemic changes. (units unknown) (unknown) (unknown) (no date) (unknown) (unknown) at extension and states that she feels symptoms of alcohol withdrawal. Denies (units unknown) (unknown) (unknown) (no date) (unknown) (unknown) being depressed at this time, CIWA is an 8. (units unknown) (unknown) (unknown) (no date) (unknown) (unknown) bpm with rightward axis and normal intervals. No STEMI, ST segment changes, (units unknown) (unknown) (unknown) (no date) (unknown) (unknown) current occupational exposures/hazards: Yes (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 with Pandemic ) (units unknown) (unknown) (unknown) (no date) (unknown) (unknown) cystitis without hematuria (units unknown) (unknown) (unknown) (no date) (unknown) (unknown) cystitis (units unknown) (unknown) (unknown) (no date) (unknown) (unknown) cystitis, she is p.o . tolerant, still pending lab work (units unknown) (unknown) (unknown) (no date) (unknown) (unknown) deliver since it is after 17:00 and the diet order was ordered at 17:30. Samira (units unknown) (unknown) (unknown) (no date) (unknown) (unknown) detox as well. (units unknown) (unknown) (unknown) (no date) (unknown) (unknown) diarrhea or current stool changes. (units unknown) (unknown) (unknown) (no date) (unknown) (unknown) diphenhydramine HCl 25 mg capsule 25 mg PO BEDTIME PRN insomnia #20 02/05/20 (units unknown) (unknown) (unknown) (no date) (unknown) (unknown) diphenhydramine HCl [Benadryl] 25 mg capsule (units unknown) (unknown) (unknown) (no date) (unknown) (unknown) docusate sodium 100 mg capsule 100 mg PO BID #30 caps 02/05/20 (units unknown) (unknown) (unknown) (no date) (unknown) (unknown) docusate sodium [Colace] 100 mg capsule (units unknown) (unknown) (unknown) (no date) (unknown) (unknown) draw her labs (units unknown) (unknown) (unknown) (no date) (unknown) (unknown) education level: college (units unknown) (unknown) (unknown) (no date) (unknown) (unknown) electrolyte abnormalities. 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 She is currently intoxicated endorses symptoms of alcohol (units unknown) (unknown) (unknown) (no date) (unknown) (unknown) her urine microscopy came back positive for many bacteria, will treat for acute (units unknown) (unknown) (unknown) (no date) (unknown) (unknown) household members: spouse and children (units unknown) (unknown) (unknown) (no date) (unknown) (unknown) hydrocodone [HYDROCODONE] AdvReac Unknown VOMITING Verified 07/12/22 16:18 (units unknown) (unknown) (unknown) (no date) (unknown) (unknown) hyroid studies are still pending. No significant findings to her CMP. No (units unknown) (unknown) (unknown) (no date) (unknown) (unknown) ibuprofen 600 mg Tablet (units unknown) (unknown) (unknown) (no date) (unknown) (unknown) ibuprofen 600 mg tablet 600 mg PO Q6HR PRN Pain, Mild 07/04/20 (units unknown) (unknown) (unknown) (no date) (unknown) (unknown) intoxicated, pleasant, interactive and comfortable although active and fidgeting (units unknown) (unknown) (unknown) (no date) (unknown) (unknown) is 89, COVID PCR wa s negative, drug screen is negative for all tested agents, t (units unknown) (unknown) (unknown) (no date) (unknown) (unknown) is allergic to Reglan, will dose with another 5 mg of Zofran, no QT prolongation (units unknown) (unknown) (unknown) (no date) (unknown) (unknown) limited history currently due to intoxication. She states that she is recently (units unknown) (unknown) (unknown) (no date) (unknown) (unknown) lorazepam at 2 mg fo r this. (units unknown) (unknown) (unknown) (no date) (unknown) (unknown) marital status: (units unknown) (unknown) (unknown) (no date) (unknown) (unknown) metoclopramide Allergy Mild RASH/HIVES Verified 07/12/22 16:18 (units unknown) (unknown) (unknown) (no date) (unknown) (unknown) mild anemia but improved from her prior with H+H of 11.5 and 35.3, no evidence (units unknown) (unknown) (unknown) (no date) (unknown) (unknown) months. She denies any recent injuries, denies chance of , denies any (units unknown) (unknown) (unknown) (no date) (unknown) (unknown) nausea vomiting or abdominal pain at this time. Denies any vomiting home or (units unknown) (unknown) (unknown) (no date) (unknown) (unknown) number of children: 1 (units unknown) (unknown) (unknown) (no date) (unknown) (unknown) numbness (units unknown) (unknown) (unknown) (no date) (unknown) (unknown) occupational status: employed (units unknown) (unknown) (unknown) (no date) (unknown) (unknown) of bleeding anywhere , CMP (units unknown) (unknown) (unknown) (no date) (unknown) (unknown) on her EKG, patient is alert and oriented x3, complaining of feeling poorly and (units unknown) (unknown) (unknown) (no date) (unknown) (unknown) ondansetron 4 mg disintegrating 4 mg PO Q6H PRN nausea and 06/12/22 (units unknown) (unknown) (unknown) (no date) (unknown) (unknown) ondansetron 4 mg disintegrating 4 mg PO Q8H PRN nausea and 01/01/20 (units unknown) (unknown) (unknown) (no date) (unknown) (unknown) ondansetron 4 mg disintegrating 4 mg PO Q8H PRN nausea and 02/05/20 (units unknown) (unknown) (unknown) (no date) (unknown) (unknown) ondansetron 4 mg tablet,disintegrating (units unknown) (unknown) (unknown) (no date) (unknown) (unknown) ordered p.o. Ativan for her symptoms and ask our into call lab to come up and (units unknown) (unknown) (unknown) (no date) (unknown) (unknown) other ingestions, is pleasant, seeking help with her intoxication and wishes to (units unknown) (unknown) (unknown) (no date) (unknown) (unknown) prenat.vits,otis,min- i thang-folic 1 tab PO DAILY 12/30/19 07/03/20 (units unknown) (unknown) (unknown) (no date) (unknown) (unknown) prenat.vits,otis,min- i thang-folic Tablet (units unknown) (unknown) (unknown) (no date) (unknown) (unknown) relapsed due to a divorce with her . She used to be a frequent visitor (units unknown) (unknown) (unknown) (no date) (unknown) (unknown) second hand exposure : No (growing up as a child - not currently) (units unknown) (unknown) (unknown) (no date) (unknown) (unknown) significant tremor o r tongue fasciculation, she has a mild tremor with her arms (units unknown) (unknown) (unknown) (no date) (unknown) (unknown) social work and orders are pending (units unknown) (unknown) (unknown) (no date) (unknown) (unknown) special renee needs: No (units unknown) (unknown) (unknown) (no date) (unknown) (unknown) substance abuse, alcohol intoxication, psychosis, mood disorder, depression (units unknown) (unknown) (unknown) (no date) (unknown) (unknown) substance use type: does not use (units unknown) (unknown) (unknown) (no date) (unknown) (unknown) tablet vomiting #14 tabs (units unknown) (unknown) (unknown) (no date) (unknown) (unknown) tablet vomiting #20 tabs (units unknown) (unknown) (unknown) (no date) (unknown) (unknown) tablet vomiting #30 tabs (units unknown) (unknown) (unknown) (no date) (unknown) (unknown) tenderness or exquisite tenderness with exam. (units unknown) (unknown) (unknown) (no date) (unknown) (unknown) that she drinks vodk a and admits to drinking heavily today, states that she took (units unknown) (unknown) (unknown) (no date) (unknown) (unknown) the bottle upside down and started checking from it. She states that she drank (units unknown) (unknown) (unknown) (no date) (unknown) (unknown) tramadol 50 mg table t 50 mg PO Q6H PRN pain #10 tabs 06/12/22 (units unknown) (unknown) (unknown) (no date) (unknown) (unknown) tramadol 50 mg tablet (units unknown) (unknown) (unknown) (no date) (unknown) (unknown) tremors, no tachycardia, her CIWA is currently 10, ordered another p.o. dose of (units unknown) (unknown) (unknown) (no date) (unknown) (unknown) urgency or flank pain, endorses nausea without vomiting. (units unknown) (unknown) (unknown) (no date) (unknown) (unknown) well as prior record s if available. (units unknown) (unknown) (unknown) (no date) (unknown) (unknown) wheezing, stridor, o r abnormal breath sounds. No retractions or tachypnea. (units unknown) (unknown) (unknown) (no date) (unknown) (unknown) withdrawal. Patient states that she takes Seroquel 300 mg at night as well as (units unknown) (unknown) Result panel [id number] (unknown) (no date) (unknown) (unknown) (no value) (units unknown) (unknown) (unknown) (no date) (unknown) (unknown) (1-3) #30 tabs (units unknown) (unknown) (unknown) (no date) (unknown) (unknown) (Benadryl) caps (units unknown) (unknown) (unknown) (no date) (unknown) (unknown) (Colace) (units unknown) (unknown) (unknown) (no date) (unknown) (unknown) (Tylenol) (units unknown) (unknown) (unknown) (no date) (unknown) (unknown) [id number] (units unknown) (unknown) (unknown) (no date) (unknown) (unknown) 07/12/22 07/12/22 07/12/22 Range/Units (units unknown) (unknown) (unknown) (no date) (unknown) (unknown) 07/12/22 16:28 (units unknown) (unknown) (unknown) (no date) (unknown) (unknown) 07/12/22 16:32 (units unknown) (unknown) (unknown) (no date) (unknown) (unknown) 07/12/22 18:28 (units unknown) (unknown) (unknown) (no date) (unknown) (unknown) 07/12/22 19:15 (units unknown) (unknown) (unknown) (no date) (unknown) (unknown) 07/12/22 (units unknown) (unknown) (unknown) (no date) (unknown) (unknown) 1 tab PO DAILY (units unknown) (unknown) (unknown) (no date) (unknown) (unknown) 100 mg PO BID Qty: 3 0 0RF (units unknown) (unknown) (unknown) (no date) (unknown) (unknown) 16:10 07/12/22 (units unknown) (unknown) (unknown) (no date) (unknown) (unknown) 16:32 16:32 16:32 (units unknown) (unknown) (unknown) (no date) (unknown) (unknown) 1835 patient still does not have an IV, has not received any IV fluid her (units unknown) (unknown) (unknown) (no date) (unknown) (unknown) 18:53 (units unknown) (unknown) (unknown) (no date) (unknown) (unknown) 1900 still no IV, patient is p.o. challenging, she received her p.o. lorazepam, (units unknown) (unknown) (unknown) (no date) (unknown) (unknown) 1930, patient now feels depressed, she is lying in bed, feeling bad, has (units unknown) (unknown) (unknown) (no date) (unknown) (unknown) 19:15 19:15 19:15 (units unknown) (unknown) (unknown) (no date) (unknown) (unknown) 1999 patient is feeling better now, her lab work is starting to return and ETOH (units unknown) (unknown) (unknown) (no date) (unknown) (unknown) 2002 patient request s to take her home dosing of Seroquel 300 mg, this is (units unknown) (unknown) (unknown) (no date) (unknown) (unknown) 2022 with similar symptoms. She comes in complaining of needing help, states (units unknown) (unknown) (unknown) (no date) (unknown) (unknown) 25 mg PO BEDTIME PRN (Reason: insomnia) Qty: 20 0RF (units unknown) (unknown) (unknown) (no date) (unknown) (unknown) 325 mg PO Q6H PRN (Reason: pain) Qty: 20 0RF (units unknown) (unknown) (unknown) (no date) (unknown) (unknown) 4 mg PO Q6H PRN (Reason: nausea and vomiting) Qty: 14 0RF (units unknown) (unknown) (unknown) (no date) (unknown) (unknown) 4 mg PO Q8H PRN (Reason: nausea and vomiting) Qty: 20 0RF (units unknown) (unknown) (unknown) (no date) (unknown) (unknown) 4 mg PO Q8H PRN (Reason: nausea and vomiting) Qty: 30 0RF (units unknown) (unknown) (unknown) (no date) (unknown) (unknown) 50 mg PO Q6H PRN (Reason: pain) Qty: 10 0RF (units unknown) (unknown) (unknown) (no date) (unknown) (unknown) 600 mg PO Q6HR PRN (Reason: Pain, Mild (1-3)) Qty: 30 0RF (units unknown) (unknown) (unknown) (no date) (unknown) (unknown) 750 mL of time. She just she has nothing to do but relapsed. This 3 weeks ago (units unknown) (unknown) (unknown) (no date) (unknown) (unknown) 9 points (units unknown) (unknown) (unknown) (no date) (unknown) (unknown) ALT (<35) IU/L (units unknown) (unknown) (unknown) (no date) (unknown) (unknown) ALT 21 (<35) IU/L (units unknown) (unknown) (unknown) (no date) (unknown) (unknown) AST (14-36) IU/L (units unknown) (unknown) (unknown) (no date) (unknown) (unknown) AST 67 H (14-36) IU/L (units unknown) (unknown) (unknown) (no date) (unknown) (unknown) Acetaminophen < 10 (10-30) ug/mL (units unknown) (unknown) (unknown) (no date) (unknown) (unknown) Acetaminophen (10-30 ) ug/mL (units unknown) (unknown) (unknown) (no date) (unknown) (unknown) Acetaminophen Stat (units unknown) (unknown) (unknown) (no date) (unknown) (unknown) Acute cystitis (units unknown) (unknown) (unknown) (no date) (unknown) (unknown) Age/Sex: 31 / F (units unknown) (unknown) (unknown) (no date) (unknown) (unknown) Agitation ?> 2 = (More severe symptoms) (units unknown) (unknown) (unknown) (no date) (unknown) (unknown) Albumin (3.5-5.0) g/dL (units unknown) (unknown) (unknown) (no date) (unknown) (unknown) Albumin 4.3 (3.5-5.0 ) g/dL (units unknown) (unknown) (unknown) (no date) (unknown) (unknown) Albumin/Globulin Ratio (1.0-2.8) (units unknown) (unknown) (unknown) (no date) (unknown) (unknown) Albumin/Globulin Ratio 1.4 (1.0-2.8) (units unknown) (unknown) (unknown) (no date) (unknown) (unknown) Alcohol use disorder (units unknown) (unknown) (unknown) (no date) (unknown) (unknown) Alcoholism (units unknown) (unknown) (unknown) (no date) (unknown) (unknown) Alkaline Phosphatase (38-126) U/L (units unknown) (unknown) (unknown) (no date) (unknown) (unknown) Alkaline Phosphatase 98 (38-126) U/L (units unknown) (unknown) (unknown) (no date) (unknown) (unknown) Allergies (units unknown) (unknown) (unknown) (no date) (unknown) (unknown) Allergy/AdvReac Type Severity Reaction Status Date / Time (units unknown) (unknown) (unknown) (no date) (unknown) (unknown) Anemia (-2018) (units unknown) (unknown) (unknown) (no date) (unknown) (unknown) Anxiety ?> 2 = (More severe symptoms) (units unknown) (unknown) (unknown) (no date) (unknown) (unknown) Auditory disturbance s ?> 1 = Very mild harshness or ability to frighten (units unknown) (unknown) (unknown) (no date) (unknown) (unknown) BUN (7-17) mg/dL (units unknown) (unknown) (unknown) (no date) (unknown) (unknown) BUN 9 (7-17) mg/dL (units unknown) (unknown) (unknown) (no date) (unknown) (unknown) BUN/Creatinine Ratio (6-22) (units unknown) (unknown) (unknown) (no date) (unknown) (unknown) BUN/Creatinine Ratio 11.0 (6-22) (units unknown) (unknown) (unknown) (no date) (unknown) (unknown) Baso # (Auto) (0-100 ) /uL (units unknown) (unknown) (unknown) (no date) (unknown) (unknown) Baso # (Auto) 0 (0-100) /uL (units unknown) (unknown) (unknown) (no date) (unknown) (unknown) Baso % (Auto) (0-2) % (units unknown) (unknown) (unknown) (no date) (unknown) (unknown) Baso % (Auto) 0.9 (0-2) % (units unknown) (unknown) (unknown) (no date) (unknown) (unknown) Bedside Urine Bilirubin - Negative (units unknown) (unknown) (unknown) (no date) (unknown) (unknown) Bedside Urine Glucos e Negative (units unknown) (unknown) (unknown) (no date) (unknown) (unknown) Bedside Urine Ketone - Negative (units unknown) (unknown) (unknown) (no date) (unknown) (unknown) Bedside Urine Leukocytes - Negative (units unknown) (unknown) (unknown) (no date) (unknown) (unknown) Bedside Urine Nitrit e + Positive (units unknown) (unknown) (unknown) (no date) (unknown) (unknown) Bedside Urine Occult Blood - Negative (units unknown) (unknown) (unknown) (no date) (unknown) (unknown) Bedside Urine Protei n - Negative (units unknown) (unknown) (unknown) (no date) (unknown) (unknown) Bedside Urine Urobilinogen - Negative (units unknown) (unknown) (unknown) (no date) (unknown) (unknown) Bedside Urine pH 6.0 (units unknown) (unknown) (unknown) (no date) (unknown) (unknown) Blood Pressure 112/6 2 07/12/22 16:10 (units unknown) (unknown) (unknown) (no date) (unknown) (unknown) Blood Pressure 112/62 (units unknown) (unknown) (unknown) (no date) (unknown) (unknown) Blood Pressure [Left Arm] 100/59 L (units unknown) (unknown) (unknown) (no date) (unknown) (unknown) CIWA is now worse an d she has tremors, anxiety is worsening and agitation, (units unknown) (unknown) (unknown) (no date) (unknown) (unknown) CIWA-Ar for Alcohol Withdrawal from [email or web address] on 07/12/2022 (units unknown) (unknown) (unknown) (no date) (unknown) (unknown) COVID19 -Nasal RAPID/Pre-Proc Stat (units unknown) (unknown) (unknown) (no date) (unknown) (unknown) Calcium (8.4-10.2) mg/dL (units unknown) (unknown) (unknown) (no date) (unknown) (unknown) Calcium 8.0 L (8.4-10.2) mg/dL (units unknown) (unknown) (unknown) (no date) (unknown) (unknown) Carbon Dioxide (22-32) mmol/L (units unknown) (unknown) (unknown) (no date) (unknown) (unknown) Carbon Dioxide 23 (22-32) mmol/L (units unknown) (unknown) (unknown) (no date) (unknown) (unknown) Cardiovascular: Tachycardic rate and rhythm, no peripheral edema, warm (units unknown) (unknown) (unknown) (no date) (unknown) (unknown) Cephalexin HCl (Cephalexin 250 Mg Capsule) 500 mg PO Q6H SANDY (units unknown) (unknown) (unknown) (no date) (unknown) (unknown) Chief Complaint: Alcohol intoxication, seeking detox (units unknown) (unknown) (unknown) (no date) (unknown) (unknown) Chief Complaint: Toxicology Problem (units unknown) (unknown) (unknown) (no date) (unknown) (unknown) Chloride (98-107) mmol/L (units unknown) (unknown) (unknown) (no date) (unknown) (unknown) Chloride 104 (98-107 ) mmol/L (units unknown) (unknown) (unknown) (no date) (unknown) (unknown) Clinical Impression: (units unknown) (unknown) (unknown) (no date) (unknown) (unknown) Clinical decision rules or scores evaluated: CIWA of 9 at 1753 (units unknown) (unknown) (unknown) (no date) (unknown) (unknown) Complete Blood Count AUTO DIFF Stat (units unknown) (unknown) (unknown) (no date) (unknown) (unknown) Comprehensive Metabolic Panel Stat (units unknown) (unknown) (unknown) (no date) (unknown) (unknown) 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 (units unknown) (unknown) (unknown) (no date) (unknown) (unknown) Course of care: Patient is a difficult IV stick, ordered IV with lab work, (units unknown) (unknown) (unknown) (no date) (unknown) (unknown) Course (units unknown) (unknown) (unknown) (no date) (unknown) (unknown) Creatinine (0.52-1.04) mg/dL (units unknown) (unknown) (unknown) (no date) (unknown) (unknown) Creatinine 0.82 (0.52-1.04) mg/dL (units unknown) (unknown) (unknown) (no date) (unknown) (unknown) : 1990 Acct:[id number] (units unknown) (unknown) (unknown) (no date) (unknown) (unknown) Date of Service: 07/12/22 (units unknown) (unknown) (unknown) (no date) (unknown) (unknown) Departure (units unknown) (unknown) (unknown) (no date) (unknown) (unknown) Differential diagnoses include but are not limited to: Alcohol withdrawal, (units unknown) (unknown) (unknown) (no date) (unknown) (unknown) Discharge Plan (units unknown) (unknown) (unknown) (no date) (unknown) (unknown) Discontinued Medications (units unknown) (unknown) (unknown) (no date) (unknown) (unknown) Documented By: KB (units unknown) (unknown) (unknown) (no date) (unknown) (unknown) Documented By: OW (units unknown) (unknown) (unknown) (no date) (unknown) (unknown) ECG Data (units unknown) (unknown) (unknown) (no date) (unknown) (unknown) ED Orders (units unknown) (unknown) (unknown) (no date) (unknown) (unknown) EKG independently reviewed by myself at 1830 reveals normal sinus rhythm at 72 (units unknown) (unknown) (unknown) (no date) (unknown) (unknown) EKG-12 Lead Stat (units unknown) (unknown) (unknown) (no date) (unknown) (unknown) ER Physician: Reinaldo Arthur D.O. (units unknown) (unknown) (unknown) (no date) (unknown) (unknown) Emergency Report (units unknown) (unknown) (unknown) (no date) (unknown) (unknown) Eos # (Auto) (0-450) /uL (units unknown) (unknown) (unknown) (no date) (unknown) (unknown) Eos # (Auto) 0 (0-450) /uL (units unknown) (unknown) (unknown) (no date) (unknown) (unknown) Eos % (Auto) (2-4) % (units unknown) (unknown) (unknown) (no date) (unknown) (unknown) Eos % (Auto) 0.3 L (2-4) % (units unknown) (unknown) (unknown) (no date) (unknown) (unknown) Esterase (units unknown) (unknown) (unknown) (no date) (unknown) (unknown) Estimated GFR > 60 (>60) mL/min (units unknown) (unknown) (unknown) (no date) (unknown) (unknown) Estimated GFR (>60) mL/min (units unknown) (unknown) (unknown) (no date) (unknown) (unknown) Ethanol (ETOH) Stat (units unknown) (unknown) (unknown) (no date) (unknown) (unknown) Ethyl Alcohol ( - 10 ) mg/dL (units unknown) (unknown) (unknown) (no date) (unknown) (unknown) Ethyl Alcohol 338 H ( - 10) mg/dL (units unknown) (unknown) (unknown) (no date) (unknown) (unknown) Exam Narrative: (units unknown) (unknown) (unknown) (no date) (unknown) (unknown) Exam (units unknown) (unknown) (unknown) (no date) (unknown) (unknown) Family History (units unknown) (unknown) (unknown) (no date) (unknown) (unknown) Family/Other Alcoholism (units unknown) (unknown) (unknown) (no date) (unknown) (unknown) Family/Other Diabete s mellitus (units unknown) (unknown) (unknown) (no date) (unknown) (unknown) Father Alcoholism (units unknown) (unknown) (unknown) (no date) (unknown) (unknown) Tonia Schneider MD [Primary Care Provider] (units unknown) (unknown) (unknown) (no date) (unknown) (unknown) Folic Acid (Folic Acid 1 Mg Tablet) 1 mg PO DAILY SANDY (units unknown) (unknown) (unknown) (no date) (unknown) (unknown) Free T4 (0.78-2.19) ng/dL (units unknown) (unknown) (unknown) (no date) (unknown) (unknown) Free T4 0.93 (0.78-2.19) ng/dL (units unknown) (unknown) (unknown) (no date) (unknown) (unknown) Free T4, Direct Thyroxine Stat (units unknown) (unknown) (unknown) (no date) (unknown) (unknown) GI: abdomen soft, nontender to palpation, nondistended, without masses, rebound (units unknown) (unknown) (unknown) (no date) (unknown) (unknown) General (units unknown) (unknown) (unknown) (no date) (unknown) (unknown) General: cooperative , comfortable, in no acute distress, well groomed, appears (units unknown) (unknown) (unknown) (no date) (unknown) (unknown) Globulin (1.7-4.1) g/dL (units unknown) (unknown) (unknown) (no date) (unknown) (unknown) Globulin 3.0 (1.7-4.1) g/dL (units unknown) (unknown) (unknown) (no date) (unknown) (unknown) Glucose (70-100) mg/dL (units unknown) (unknown) (unknown) (no date) (unknown) (unknown) Glucose 111 H (70-100) mg/dL (units unknown) (unknown) (unknown) (no date) (unknown) (unknown) Grandfather Smoker (units unknown) (unknown) (unknown) (no date) (unknown) (unknown) Grandfather Unknown whether patient has any health problems (units unknown) (unknown) (unknown) (no date) (unknown) (unknown) Grandmother Diabetes mellitus (units unknown) (unknown) (unknown) (no date) (unknown) (unknown) Grandmother Hypoglycemia (units unknown) (unknown) (unknown) (no date) (unknown) (unknown) H/O dilation and curettage (-12/14/16) (units unknown) (unknown) (unknown) (no date) (unknown) (unknown) H/O wisdom tooth extraction () (units unknown) (unknown) (unknown) (no date) (unknown) (unknown) HEENT: symmetrical facial expressions, dry mucous membranes (units unknown) (unknown) (unknown) (no date) (unknown) (unknown) HPI - Alcohol (units unknown) (unknown) (unknown) (no date) (unknown) (unknown) HPI narrative: (units unknown) (unknown) (unknown) (no date) (unknown) (unknown) Hct (36-46) % (units unknown) (unknown) (unknown) (no date) (unknown) (unknown) Hct 35.3 L (36-46) % (units unknown) (unknown) (unknown) (no date) (unknown) (unknown) Headache/fullness in head ?> 1 = Very mild (units unknown) (unknown) (unknown) (no date) (unknown) (unknown) Hematuria presence: without hematuria Qualified Code(s): N30.00 - Acute (units unknown) (unknown) (unknown) (no date) (unknown) (unknown) Hgb (12.0-16.0) g/dL (units unknown) (unknown) (unknown) (no date) (unknown) (unknown) Hgb 11.5 L (12.0-16.0) g/dL (units unknown) (unknown) (unknown) (no date) (unknown) (unknown) History of Present Illness (units unknown) (unknown) (unknown) (no date) (unknown) (unknown) Home Medications (units unknown) (unknown) (unknown) (no date) (unknown) (unknown) I have independently reviewed the patient's vital signs and nursing notes as (units unknown) (unknown) (unknown) (no date) (unknown) (unknown) INPUTS: (units unknown) (unknown) (unknown) (no date) (unknown) (unknown) Independent historian: Patient (units unknown) (unknown) (unknown) (no date) (unknown) (unknown) Initial Vital Signs (units unknown) (unknown) (unknown) (no date) (unknown) (unknown) Initial Vital Signs: (units unknown) (unknown) (unknown) (no date) (unknown) (unknown) Insomnia (units unknown) (unknown) (unknown) (no date) (unknown) (unknown) Interpretation: (units unknown) (unknown) (unknown) (no date) (unknown) (unknown) [address] [address] (units unknown) (unknown) (unknown) (no date) (unknown) (unknown) Lab Data (units unknown) (unknown) (unknown) (no date) (unknown) (unknown) Lab Results (units unknown) (unknown) (unknown) (no date) (unknown) (unknown) Labs: (units unknown) (unknown) (unknown) (no date) (unknown) (unknown) Last Admin: 07/12/22 18:39 Dose: 4 mg (units unknown) (unknown) (unknown) (no date) (unknown) (unknown) Last Admin: 07/12/22 18:40 Dose: 1 mg (units unknown) (unknown) (unknown) (no date) (unknown) (unknown) Last Admin: 07/12/22 18:56 Dose: Not Given (units unknown) (unknown) (unknown) (no date) (unknown) (unknown) Last Admin: 07/12/22 19:47 Dose: 500 mg (units unknown) (unknown) (unknown) (no date) (unknown) (unknown) Last Admin: 07/12/22 19:48 Dose: 2 mg (units unknown) (unknown) (unknown) (no date) (unknown) (unknown) Last Admin: 07/12/22 19:49 Dose: 100 mg (units unknown) (unknown) (unknown) (no date) (unknown) (unknown) Librium but she does not have this medicine with her, she only has the Seroquel. (units unknown) (unknown) (unknown) (no date) (unknown) (unknown) Lorazepam (Lorazepam 0.5 Mg Tablet) 1 mg PO NOW ONE (units unknown) (unknown) (unknown) (no date) (unknown) (unknown) Lorazepam (Lorazepam 0.5 Mg Tablet) 2 mg PO NOW ONE (units unknown) (unknown) (unknown) (no date) (unknown) (unknown) Lorazepam (Lorazepam 2 Mg/Ml Inj) 2 mg IV NOW ONE (units unknown) (unknown) (unknown) (no date) (unknown) (unknown) Lymph # (Auto) (4859-1595) /uL (units unknown) (unknown) (unknown) (no date) (unknown) (unknown) Lymph # (Auto) 1700 (1201-6586) /uL (units unknown) (unknown) (unknown) (no date) (unknown) (unknown) Lymph % (Auto) (25-40) % (units unknown) (unknown) (unknown) (no date) (unknown) (unknown) Lymph % (Auto) 50.6 H (25-40) % (units unknown) (unknown) (unknown) (no date) (unknown) (unknown) MCH (26-34) PG (units unknown) (unknown) (unknown) (no date) (unknown) (unknown) MCH 26.0 (26-34) PG (units unknown) (unknown) (unknown) (no date) (unknown) (unknown) MCHC (30-36) % (units unknown) (unknown) (unknown) (no date) (unknown) (unknown) MCHC 32.7 (30-36) % (units unknown) (unknown) (unknown) (no date) (unknown) (unknown) MCV (80-100) fL (units unknown) (unknown) (unknown) (no date) (unknown) (unknown) MCV 79.5 L (80-100) fL (units unknown) (unknown) (unknown) (no date) (unknown) (unknown) MDM - Alcohol (units unknown) (unknown) (unknown) (no date) (unknown) (unknown) MDM Narrative (units unknown) (unknown) (unknown) (no date) (unknown) (unknown) MIPS: This encounter doesn't have any diagnosis' associated with MIPS criteria. (units unknown) (unknown) (unknown) (no date) (unknown) (unknown) MSK: moves all extremities, neurovascularly intact, no weakness, normal tone no (units unknown) (unknown) (unknown) (no date) (unknown) (unknown) Medical History (units unknown) (unknown) (unknown) (no date) (unknown) (unknown) Medical decision making narrative: (units unknown) (unknown) (unknown) (no date) (unknown) (unknown) Medication Instructions Recorded Confirmed (units unknown) (unknown) (unknown) (no date) (unknown) (unknown) Medication Instructions Recorded (units unknown) (unknown) (unknown) (no date) (unknown) (unknown) Menometrorrhagia (units unknown) (unknown) (unknown) (no date) (unknown) (unknown) Mode of arrival: Ambulatory (units unknown) (unknown) (unknown) (no date) (unknown) (unknown) [place] # (Auto) (0-900 ) /uL (units unknown) (unknown) (unknown) (no date) (unknown) (unknown) [place] # (Auto) 100 (0-900) /uL (units unknown) (unknown) (unknown) (no date) (unknown) (unknown) [place] % (Auto) (3-14) % (units unknown) (unknown) (unknown) (no date) (unknown) (unknown) [place] % (Auto) 2.7 L (3-14) % (units unknown) (unknown) (unknown) (no date) (unknown) (unknown) Mother Diabetes mellitus (units unknown) (unknown) (unknown) (no date) (unknown) (unknown) Narrative (units unknown) (unknown) (unknown) (no date) (unknown) (unknown) Nausea/vomiting ?> 0 = No nausea and no vomiting (units unknown) (unknown) (unknown) (no date) (unknown) (unknown) Neuro: normal speech and cognition, A+O x3, ambulatory, clear speech (units unknown) (unknown) (unknown) (no date) (unknown) (unknown) Neut # (Auto) (2723-3680) /uL (units unknown) (unknown) (unknown) (no date) (unknown) (unknown) Neut # (Auto) 1500 (5312-9200) /uL (units unknown) (unknown) (unknown) (no date) (unknown) (unknown) Neut % (Auto) (50-75 ) % (units unknown) (unknown) (unknown) (no date) (unknown) (unknown) Neut % (Auto) 45.5 L (50-75) % (units unknown) (unknown) (unknown) (no date) (unknown) (unknown) No Action (units unknown) (unknown) (unknown) (no date) (unknown) (unknown) Obesity (units unknown) (unknown) (unknown) (no date) (unknown) (unknown) Ondansetron HCl (Ondansetron 4 Mg Odt) 4 mg SL NOW ONE (units unknown) (unknown) (unknown) (no date) (unknown) (unknown) Ondansetron HCl (Ondansetron 4 Mg/2 Ml Inj) 4 mg IV Q6HR PRN (units unknown) (unknown) (unknown) (no date) (unknown) (unknown) Ordered: (units unknown) (unknown) (unknown) (no date) (unknown) (unknown) Orders (units unknown) (unknown) (unknown) (no date) (unknown) (unknown) Orientation/clouding of sensorium ?> 0 = Oriented, can do serial additions (units unknown) (unknown) (unknown) (no date) (unknown) (unknown) Overweight (units unknown) (unknown) (unknown) (no date) (unknown) (unknown) Oxygen Delivery Method Room Air 07/12/22 16:10 (units unknown) (unknown) (unknown) (no date) (unknown) (unknown) Oxygen Delivery Method Room Air Room Air (units unknown) (unknown) (unknown) (no date) (unknown) (unknown) PRN Reason: Nausea And Vomiting (units unknown) (unknown) (unknown) (no date) (unknown) (unknown) Paroxysmal sweats ?> 0 = No sweat visible (units unknown) (unknown) (unknown) (no date) (unknown) (unknown) Patient Disposition: [facility] (units unknown) (unknown) (unknown) (no date) (unknown) (unknown) Patient History (units unknown) (unknown) (unknown) (no date) (unknown) (unknown) Patient has allergy to Reglan and hydrocodone. She denies urinary frequency, (units unknown) (unknown) (unknown) (no date) (unknown) (unknown) Patient's CIWA at 2019 is 12, I ordered for her 2 more mg of lorazepam p.o., (units unknown) (unknown) (unknown) (no date) (unknown) (unknown) Patient: Sarah Connors MR#: M (units unknown) (unknown) (unknown) (no date) (unknown) (unknown) Patients with scores >= may require medication for withdrawal. (units unknown) (unknown) (unknown) (no date) (unknown) (unknown) Pertinent lab findings reviewed: CBC is pertinent for mild leukopenia of 3.3, (units unknown) (unknown) (unknown) (no date) (unknown) (unknown) Plt Count (150-400) X103/uL (units unknown) (unknown) (unknown) (no date) (unknown) (unknown) Plt Count 226 (150-400) X103/uL (units unknown) (unknown) (unknown) (no date) (unknown) (unknown) Point of Care Testing (units unknown) (unknown) (unknown) (no date) (unknown) (unknown) Potassium (3.4-5.1) mmol/L (units unknown) (unknown) (unknown) (no date) (unknown) (unknown) Potassium 3.9 (3.4-5.1) mmol/L (units unknown) (unknown) (unknown) (no date) (unknown) (unknown) Test Results Negative (units unknown) (unknown) (unknown) (no date) (unknown) (unknown) Prescriptions: (units unknown) (unknown) (unknown) (no date) (unknown) (unknown) Previous Rx's (units unknown) (unknown) (unknown) (no date) (unknown) (unknown) Psych: mental status is intact, patient has a normal affect although she is (units unknown) (unknown) (unknown) (no date) (unknown) (unknown) Pulse Oximetry 99 07/12/22 16:10 (units unknown) (unknown) (unknown) (no date) (unknown) (unknown) Pulse Oximetry 99 99 (units unknown) (unknown) (unknown) (no date) (unknown) (unknown) Pulse Rate 82 07/12/22 16:10 (units unknown) (unknown) (unknown) (no date) (unknown) (unknown) Pulse Rate 82 86 (units unknown) (unknown) (unknown) (no date) (unknown) (unknown) Qualifiers: (units unknown) (unknown) (unknown) (no date) (unknown) (unknown) Questions are addressed and there is agreement with the plan and for follow-up. (units unknown) (unknown) (unknown) (no date) (unknown) (unknown) RBC (4.0-5.2) X106/uL (units unknown) (unknown) (unknown) (no date) (unknown) (unknown) RBC 4.44 (4.0-5.2) X106/uL (units unknown) (unknown) (unknown) (no date) (unknown) (unknown) RDW (11.6-14.8) % (units unknown) (unknown) (unknown) (no date) (unknown) (unknown) RDW 17.3 H (11.6-14.8) % (units unknown) (unknown) (unknown) (no date) (unknown) (unknown) RESULT SUMMARY: (units unknown) (unknown) (unknown) (no date) (unknown) (unknown) ROS Unobtainable: Al l systems reviewed + are unremarkable except as noted in HPI (units unknown) (unknown) (unknown) (no date) (unknown) (unknown) Referrals: (units unknown) (unknown) (unknown) (no date) (unknown) (unknown) Related Data (units unknown) (unknown) (unknown) (no date) (unknown) (unknown) Respiratory Rate 14 07/12/22 16:10 (units unknown) (unknown) (unknown) (no date) (unknown) (unknown) Respiratory Rate 14 22 (units unknown) (unknown) (unknown) (no date) (unknown) (unknown) Respiratory: normal effort, able to speak in complete sentences, without (units unknown) (unknown) (unknown) (no date) (unknown) (unknown) Review of Systems (units unknown) (unknown) (unknown) (no date) (unknown) (unknown) Reviewed vitals sign s and nursing notes. (units unknown) (unknown) (unknown) (no date) (unknown) (unknown) S/P myringotomy with insertion of tube (units unknown) (unknown) (unknown) (no date) (unknown) (unknown) SARS-CoV-2 (PCR) (Negative) (units unknown) (unknown) (unknown) (no date) (unknown) (unknown) SARS-CoV-2 (PCR) Negative (Negative) (units unknown) (unknown) (unknown) (no date) (unknown) (unknown) (spontaneous vaginal delivery) (-09/05/18) (units unknown) (unknown) (unknown) (no date) (unknown) (unknown) Salicylate Stat (units unknown) (unknown) (unknown) (no date) (unknown) (unknown) Salicylates < 1.0 (<20) mg/dL (units unknown) (unknown) (unknown) (no date) (unknown) (unknown) Salicylates (<20) mg/dL (units unknown) (unknown) (unknown) (no date) (unknown) (unknown) She was given a couple water, a diet order was ordered however they may not (units unknown) (unknown) (unknown) (no date) (unknown) (unknown) Signed By: (units unknown) (unknown) (unknown) (no date) (unknown) (unknown) Skin: brisk capillar y refill, without pallor or erythema (units unknown) (unknown) (unknown) (no date) (unknown) (unknown) Smoker (units unknown) (unknown) (unknown) (no date) (unknown) (unknown) [place] in the past. She has been sober for a total of 18 (units unknown) (unknown) (unknown) (no date) (unknown) (unknown) Smoking Status: Former smoker (units unknown) (unknown) (unknown) (no date) (unknown) (unknown) Social History (units unknown) (unknown) (unknown) (no date) (unknown) (unknown) Social consideration s that may affect disposition: none (units unknown) (unknown) (unknown) (no date) (unknown) (unknown) Sodium (137-145) mmol/L (units unknown) (unknown) (unknown) (no date) (unknown) (unknown) Sodium 140 (137-145) mmol/L (units unknown) (unknown) (unknown) (no date) (unknown) (unknown) Sodium Chloride (Normal Saline 0.9%) 1,000 mls @ 1,000 mls/hr IV BOLUS ONE (units unknown) (unknown) (unknown) (no date) (unknown) (unknown) Source: patient (units unknown) (unknown) (unknown) (no date) (unknown) (unknown) Stated Complaint: Stress/Depression (units unknown) (unknown) (unknown) (no date) (unknown) (unknown) Stop: 07/12/22 17:33 (units unknown) (unknown) (unknown) (no date) (unknown) (unknown) Stop: 07/12/22 17:45 (units unknown) (unknown) (unknown) (no date) (unknown) (unknown) Stop: 07/12/22 18:28 (units unknown) (unknown) (unknown) (no date) (unknown) (unknown) Stop: 07/12/22 18:31 (units unknown) (unknown) (unknown) (no date) (unknown) (unknown) Stop: 07/12/22 19:25 (units unknown) (unknown) (unknown) (no date) (unknown) (unknown) Stop: 07/12/22 20:03 (units unknown) (unknown) (unknown) (no date) (unknown) (unknown) Substance Use Type: does not use (units unknown) (unknown) (unknown) (no date) (unknown) (unknown) Surgical History (units unknown) (unknown) (unknown) (no date) (unknown) (unknown) Tactile disturbances ?> 1 = Very mild itching, pin and needles, burning, or (units unknown) (unknown) (unknown) (no date) (unknown) (unknown) Temperature 97.2 F L 07/12/22 16:10 (units unknown) (unknown) (unknown) (no date) (unknown) (unknown) Temperature 97.2 F L (units unknown) (unknown) (unknown) (no date) (unknown) (unknown) Thiamine HCl (Thiamine 100 Mg Tablet) 100 mg PO NOW ONE (units unknown) (unknown) (unknown) (no date) (unknown) (unknown) Thiamine HCl 200 mg/ Sodium (Chloride) 102 mls @ 408 mls/hr IV NOW ONE (units unknown) (unknown) (unknown) (no date) (unknown) (unknown) This is a 31-year-ol d female with history of alcohol abuse and appears to have (units unknown) (unknown) (unknown) (no date) (unknown) (unknown) Thyroid Stimulating Hormone Stat (units unknown) (unknown) (unknown) (no date) (unknown) (unknown) Time Seen by Provider: 07/12/22 17:05 (units unknown) (unknown) (unknown) (no date) (unknown) (unknown) Total Bilirubin (0.2-1.3) mg/dL (units unknown) (unknown) (unknown) (no date) (unknown) (unknown) Total Bilirubin 0.4 (0.2-1.3) mg/dL (units unknown) (unknown) (unknown) (no date) (unknown) (unknown) Total Protein (6.3-8.2) g/dL (units unknown) (unknown) (unknown) (no date) (unknown) (unknown) Total Protein 7.3 (6.3-8.2) g/dL (units unknown) (unknown) (unknown) (no date) (unknown) (unknown) Tremor ?> 1 = Not visible, but can be felt fingertip to fingertip (units unknown) (unknown) (unknown) (no date) (unknown) (unknown) U Benzodiazepines Scrn (Negative) (units unknown) (unknown) (unknown) (no date) (unknown) (unknown) U Benzodiazepines Scrn Negative (Negative) (units unknown) (unknown) (unknown) (no date) (unknown) (unknown) U Marijuana (THC) Screen (Negative) (units unknown) (unknown) (unknown) (no date) (unknown) (unknown) U Marijuana (THC) Screen Negative (Negative) (units unknown) (unknown) (unknown) (no date) (unknown) (unknown) U Methamphetamines Scrn (Negative) (units unknown) (unknown) (unknown) (no date) (unknown) (unknown) U Methamphetamines Scrn Negative (Negative) (units unknown) (unknown) (unknown) (no date) (unknown) (unknown) U Opiates 300ng/mL cut (Negative) (units unknown) (unknown) (unknown) (no date) (unknown) (unknown) U Opiates 300ng/mL cut Negative (Negative) (units unknown) (unknown) (unknown) (no date) (unknown) (unknown) U Tricyclic Antidepress (Negative) (units unknown) (unknown) (unknown) (no date) (unknown) (unknown) U Tricyclic Antidepress Negative (Negative) (units unknown) (unknown) (unknown) (no date) (unknown) (unknown) Ur Amphetamines Screen (Negative) (units unknown) (unknown) (unknown) (no date) (unknown) (unknown) Ur Amphetamines Screen Negative (Negative) (units unknown) (unknown) (unknown) (no date) (unknown) (unknown) Ur Barbiturates Screen (Negative) (units unknown) (unknown) (unknown) (no date) (unknown) (unknown) Ur Barbiturates Screen Negative (Negative) (units unknown) (unknown) (unknown) (no date) (unknown) (unknown) Ur Culture Indicated ? Specimen cultured (units unknown) (unknown) (unknown) (no date) (unknown) (unknown) Ur Culture Indicated? (units unknown) (unknown) (unknown) (no date) (unknown) (unknown) Ur MDMA Scrn (Ecstasy) (Negative) (units unknown) (unknown) (unknown) (no date) (unknown) (unknown) Ur MDMA Scrn (Ecstasy) Negative (Negative) (units unknown) (unknown) (unknown) (no date) (unknown) (unknown) Ur Oxycodone Screen (Negative) (units unknown) (unknown) (unknown) (no date) (unknown) (unknown) Ur Oxycodone Screen Negative (Negative) (units unknown) (unknown) (unknown) (no date) (unknown) (unknown) Ur Phencyclidine Scr n (Negative) (units unknown) (unknown) (unknown) (no date) (unknown) (unknown) Ur Phencyclidine Scr n Negative (Negative) (units unknown) (unknown) (unknown) (no date) (unknown) (unknown) Ur Squamous Epith Cells (0-5/HPF) (units unknown) (unknown) (unknown) (no date) (unknown) (unknown) Ur Squamous Epith Cells 1-5 /hpf (0-5/HPF) (units unknown) (unknown) (unknown) (no date) (unknown) (unknown) Urine Bacteria (None) (units unknown) (unknown) (unknown) (no date) (unknown) (unknown) Urine Bacteria Many (>30) H (None) (units unknown) (unknown) (unknown) (no date) (unknown) (unknown) Urine Cocaine Screen (Negative) (units unknown) (unknown) (unknown) (no date) (unknown) (unknown) Urine Cocaine Screen Negative (Negative) (units unknown) (unknown) (unknown) (no date) (unknown) (unknown) Urine Culture Stat (units unknown) (unknown) (unknown) (no date) (unknown) (unknown) Urine Dip (units unknown) (unknown) (unknown) (no date) (unknown) (unknown) Urine Drug Screen, Rapid Stat (units unknown) (unknown) (unknown) (no date) (unknown) (unknown) Urine Methadone Screen (Negative) (units unknown) (unknown) (unknown) (no date) (unknown) (unknown) Urine Methadone Screen Negative (Negative) (units unknown) (unknown) (unknown) (no date) (unknown) (unknown) Urine Microscopic Stat (units unknown) (unknown) (unknown) (no date) (unknown) (unknown) Urine RBC (0-5/HPF) (units unknown) (unknown) (unknown) (no date) (unknown) (unknown) Urine RBC 1-5/hpf (0-5/HPF) (units unknown) (unknown) (unknown) (no date) (unknown) (unknown) Urine Specific [place] 1.015 (units unknown) (unknown) (unknown) (no date) (unknown) (unknown) Urine WBC (0-5/HPF) (units unknown) (unknown) (unknown) (no date) (unknown) (unknown) Urine WBC 1-5/hpf (0-5/HPF) (units unknown) (unknown) (unknown) (no date) (unknown) (unknown) Urine microscopy wit h many bacteria, pending for culture, will treat for acute (units unknown) (unknown) (unknown) (no date) (unknown) (unknown) Visual disturbances ?> 1 = Very mild sensitivity (units unknown) (unknown) (unknown) (no date) (unknown) (unknown) Vital Signs - 8 hr (units unknown) (unknown) (unknown) (no date) (unknown) (unknown) Vital Signs (units unknown) (unknown) (unknown) (no date) (unknown) (unknown) Vital signs: (units unknown) (unknown) (unknown) (no date) (unknown) (unknown) WBC (4.5-11.0) X103/uL (units unknown) (unknown) (unknown) (no date) (unknown) (unknown) WBC 3.3 L (4.5-11.0) X103/uL (units unknown) (unknown) (unknown) (no date) (unknown) (unknown) [Embedded Image Not Available] (units unknown) (unknown) (unknown) (no date) (unknown) (unknown) [METOCLOPRAMIDE] (units unknown) (unknown) (unknown) (no date) (unknown) (unknown) acceptable. She is nauseated, without vomiting, received Zofran previously and (units unknown) (unknown) (unknown) (no date) (unknown) (unknown) acetaminophen 325 mg tablet 325 mg PO Q6H PRN pain #20 tabs 02/05/20 (units unknown) (unknown) (unknown) (no date) (unknown) (unknown) acetaminophen [Tylenol] 325 mg tablet (units unknown) (unknown) (unknown) (no date) (unknown) (unknown) alcohol in 300s, she was last here in the emergency department in May of (units unknown) (unknown) (unknown) (no date) (unknown) (unknown) alcohol intake frequency: 3 or more drinks per day (units unknown) (unknown) (unknown) (no date) (unknown) (unknown) alcohol intake: former (units unknown) (unknown) (unknown) (no date) (unknown) (unknown) and below (units unknown) (unknown) (unknown) (no date) (unknown) (unknown) and she drinking daily since this happened. She wants rehab. She has been (units unknown) (unknown) (unknown) (no date) (unknown) (unknown) anxious, intoxicated and now withdrawing. pleasant and cooperative (units unknown) (unknown) (unknown) (no date) (unknown) (unknown) arrhythmia, or acute ischemic changes. (units unknown) (unknown) (unknown) (no date) (unknown) (unknown) at extension and states that she feels symptoms of alcohol withdrawal. Denies (units unknown) (unknown) (unknown) (no date) (unknown) (unknown) being depressed at this time, CIWA is an 8. (units unknown) (unknown) (unknown) (no date) (unknown) (unknown) bpm with rightward axis and normal intervals. No STEMI, ST segment changes, (units unknown) (unknown) (unknown) (no date) (unknown) (unknown) current occupational exposures/hazards: Yes (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 with Pandemic ) (units unknown) (unknown) (unknown) (no date) (unknown) (unknown) cystitis without hematuria (units unknown) (unknown) (unknown) (no date) (unknown) (unknown) cystitis (units unknown) (unknown) (unknown) (no date) (unknown) (unknown) cystitis, she is p.o . tolerant, still pending lab work (units unknown) (unknown) (unknown) (no date) (unknown) (unknown) deliver since it is after 17:00 and the diet order was ordered at 17:30. Samira (units unknown) (unknown) (unknown) (no date) (unknown) (unknown) detox 11 times, states that it has taking Antabuse, Librium, Ativan, she denies (units unknown) (unknown) (unknown) (no date) (unknown) (unknown) detox as well. (units unknown) (unknown) (unknown) (no date) (unknown) (unknown) diarrhea or current stool changes. (units unknown) (unknown) (unknown) (no date) (unknown) (unknown) diphenhydramine HCl 25 mg capsule 25 mg PO BEDTIME PRN insomnia #20 02/05/20 (units unknown) (unknown) (unknown) (no date) (unknown) (unknown) diphenhydramine HCl [Benadryl] 25 mg capsule (units unknown) (unknown) (unknown) (no date) (unknown) (unknown) docusate sodium 100 mg capsule 100 mg PO BID #30 caps 02/05/20 (units unknown) (unknown) (unknown) (no date) (unknown) (unknown) docusate sodium [Colace] 100 mg capsule (units unknown) (unknown) (unknown) (no date) (unknown) (unknown) draw her labs (units unknown) (unknown) (unknown) (no date) (unknown) (unknown) education level: college (units unknown) (unknown) (unknown) (no date) (unknown) (unknown) electrolyte abnormalities. 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[employer] (units unknown) (unknown) (unknown) (no date) (unknown) (unknown) fidgeting (units unknown) (unknown) (unknown) (no date) (unknown) (unknown) fluid, EtOH, and CIWA, ordered 2 mg of IV lorazepam for patient's symptoms, (units unknown) (unknown) (unknown) (no date) (unknown) (unknown) for alcohol related complaints through 2019, and she presented to the [facility] (units unknown) (unknown) (unknown) (no date) (unknown) (unknown) from social work is aware and pending her lab work to arrange for inpatient (units unknown) (unknown) (unknown) (no date) (unknown) (unknown) go to detox. She is currently intoxicated endorses symptoms of alcohol (units unknown) (unknown) (unknown) (no date) (unknown) (unknown) her urine microscopy came back positive for many bacteria, will treat for acute (units unknown) (unknown) (unknown) (no date) (unknown) (unknown) household members: spouse and children (units unknown) (unknown) (unknown) (no date) (unknown) (unknown) hydrocodone [HYDROCODONE] AdvReac Unknown VOMITING Verified 07/12/22 16:18 (units unknown) (unknown) (unknown) (no date) (unknown) (unknown) ibuprofen 600 mg Tablet (units unknown) (unknown) (unknown) (no date) (unknown) (unknown) ibuprofen 600 mg tablet 600 mg PO Q6HR PRN Pain, Mild 07/04/20 (units unknown) (unknown) (unknown) (no date) (unknown) (unknown) intoxicated, pleasant, interactive and comfortable although active, anxious and (units unknown) (unknown) (unknown) (no date) (unknown) (unknown) is 89, COVID PCR wa s negative, drug screen is negative for all tested agents, (units unknown) (unknown) (unknown) (no date) (unknown) (unknown) is allergic to Reglan, will dose with another 5 mg of Zofran, no QT prolongation (units unknown) (unknown) (unknown) (no date) (unknown) (unknown) knowing if she is cox d phenobarbital in the past. (units unknown) (unknown) (unknown) (no date) (unknown) (unknown) limited history currently due to intoxication. She states that she is recently (units unknown) (unknown) (unknown) (no date) (unknown) (unknown) lorazepam at 2 mg fo r this. (units unknown) (unknown) (unknown) (no date) (unknown) (unknown) marital status: (units unknown) (unknown) (unknown) (no date) (unknown) (unknown) metoclopramide Allergy Mild RASH/HIVES Verified 07/12/22 16:18 (units unknown) (unknown) (unknown) (no date) (unknown) (unknown) mild anemia but improved from her prior with H+H of 11.5 and 35.3, no evidence (units unknown) (unknown) (unknown) (no date) (unknown) (unknown) months. She denies any recent injuries, denies chance of , denies any (units unknown) (unknown) (unknown) (no date) (unknown) (unknown) nausea vomiting or abdominal pain at this time. Denies any vomiting home or (units unknown) (unknown) (unknown) (no date) (unknown) (unknown) number of children: 1 (units unknown) (unknown) (unknown) (no date) (unknown) (unknown) numbness (units unknown) (unknown) (unknown) (no date) (unknown) (unknown) occupational status: employed (units unknown) (unknown) (unknown) (no date) (unknown) (unknown) of bleeding anywhere , CMP (units unknown) (unknown) (unknown) (no date) (unknown) (unknown) on her EKG, patient is alert and oriented x3, complaining of feeling poorly and (units unknown) (unknown) (unknown) (no date) (unknown) (unknown) ondansetron 4 mg disintegrating 4 mg PO Q6H PRN nausea and 06/12/22 (units unknown) (unknown) (unknown) (no date) (unknown) (unknown) ondansetron 4 mg disintegrating 4 mg PO Q8H PRN nausea and 01/01/20 (units unknown) (unknown) (unknown) (no date) (unknown) (unknown) ondansetron 4 mg disintegrating 4 mg PO Q8H PRN nausea and 02/05/20 (units unknown) (unknown) (unknown) (no date) (unknown) (unknown) ondansetron 4 mg tablet,disintegrating (units unknown) (unknown) (unknown) (no date) (unknown) (unknown) ordered p.o. Ativan for her symptoms and ask our into call lab to come up and (units unknown) (unknown) (unknown) (no date) (unknown) (unknown) other ingestions, is pleasant, seeking help with her intoxication and wishes to (units unknown) (unknown) (unknown) (no date) (unknown) (unknown) patient's is at the bedside offering support, (units unknown) (unknown) (unknown) (no date) (unknown) (unknown) prenat.vits,otis,min- i thang-folic 1 tab PO DAILY 12/30/19 07/03/20 (units unknown) (unknown) (unknown) (no date) (unknown) (unknown) prenat.vits,otis,min- i thang-folic Tablet (units unknown) (unknown) (unknown) (no date) (unknown) (unknown) relapsed due to a divorce with her . She used to be a frequent visitor (units unknown) (unknown) (unknown) (no date) (unknown) (unknown) second hand exposure : No (growing up as a child - not currently) (units unknown) (unknown) (unknown) (no date) (unknown) (unknown) significant tremor o r tongue fasciculation, she has a mild tremor with her arms (units unknown) (unknown) (unknown) (no date) (unknown) (unknown) social work and orders are pending (units unknown) (unknown) (unknown) (no date) (unknown) (unknown) special renee needs: No (units unknown) (unknown) (unknown) (no date) (unknown) (unknown) substance abuse, alcohol intoxication, psychosis, mood disorder, depression (units unknown) (unknown) (unknown) (no date) (unknown) (unknown) substance use type: does not use (units unknown) (unknown) (unknown) (no date) (unknown) (unknown) tablet vomiting #14 tabs (units unknown) (unknown) (unknown) (no date) (unknown) (unknown) tablet vomiting #20 tabs (units unknown) (unknown) (unknown) (no date) (unknown) (unknown) tablet vomiting #30 tabs (units unknown) (unknown) (unknown) (no date) (unknown) (unknown) tenderness or exquisite tenderness with exam. (units unknown) (unknown) (unknown) (no date) (unknown) (unknown) that she drinks vodk a and admits to drinking heavily today, states that she took (units unknown) (unknown) (unknown) (no date) (unknown) (unknown) the bottle upside down and started checking from it. She states that she drank (units unknown) (unknown) (unknown) (no date) (unknown) (unknown) thyroid studies are still pending. No significant findings to her CMP. No (units unknown) (unknown) (unknown) (no date) (unknown) (unknown) tramadol 50 mg table t 50 mg PO Q6H PRN pain #10 tabs 06/12/22 (units unknown) (unknown) (unknown) (no date) (unknown) (unknown) tramadol 50 mg tablet (units unknown) (unknown) (unknown) (no date) (unknown) (unknown) tremors, no tachycardia, her CIWA is currently 10, ordered another p.o. dose of (units unknown) (unknown) (unknown) (no date) (unknown) (unknown) urgency or flank pain, endorses nausea without vomiting. Patient has been to (units unknown) (unknown) (unknown) (no date) (unknown) (unknown) well as prior record s if available. (units unknown) (unknown) (unknown) (no date) (unknown) (unknown) wheezing, stridor, o r abnormal breath sounds. No retractions or tachypnea. (units unknown) (unknown) (unknown) (no date) (unknown) (unknown) withdrawal. Patient states that she takes Seroquel 300 mg at night as well as (units unknown) (unknown) Result panel [id number] (unknown) (no date) (unknown) (unknown) (no value) (units unknown) (unknown) (unknown) (no date) (unknown) (unknown) (1-3) #30 tabs (units unknown) (unknown) (unknown) (no date) (unknown) (unknown) (Benadryl) caps (units unknown) (unknown) (unknown) (no date) (unknown) (unknown) (Colace) (units unknown) (unknown) (unknown) (no date) (unknown) (unknown) (Tylenol) (units unknown) (unknown) (unknown) (no date) (unknown) (unknown) [id number] (units unknown) (unknown) (unknown) (no date) (unknown) (unknown) 07/12/22 07/12/22 07/12/22 Range/Units (units unknown) (unknown) (unknown) (no date) (unknown) (unknown) 07/12/22 16:28 (units unknown) (unknown) (unknown) (no date) (unknown) (unknown) 07/12/22 16:32 (units unknown) (unknown) (unknown) (no date) (unknown) (unknown) 07/12/22 18:28 (units unknown) (unknown) (unknown) (no date) (unknown) (unknown) 07/12/22 19:15 (units unknown) (unknown) (unknown) (no date) (unknown) (unknown) 07/12/22 (units unknown) (unknown) (unknown) (no date) (unknown) (unknown) 1 tab PO DAILY (units unknown) (unknown) (unknown) (no date) (unknown) (unknown) 100 mg PO BID Qty: 3 0 0RF (units unknown) (unknown) (unknown) (no date) (unknown) (unknown) 16:10 07/12/22 (units unknown) (unknown) (unknown) (no date) (unknown) (unknown) 16:32 16:32 16:32 (units unknown) (unknown) (unknown) (no date) (unknown) (unknown) 1835 patient still does not have an IV, has not received any IV fluid her (units unknown) (unknown) (unknown) (no date) (unknown) (unknown) 18:53 (units unknown) (unknown) (unknown) (no date) (unknown) (unknown) 1899 still no IV, patient is p.o. challenging, she received her p.o. lorazepam, (units unknown) (unknown) (unknown) (no date) (unknown) (unknown) 1929, patient now feels depressed, she is lying in bed, feeling bad, has (units unknown) (unknown) (unknown) (no date) (unknown) (unknown) 19:15 19:15 19:15 (units unknown) (unknown) (unknown) (no date) (unknown) (unknown) 1999 patient is feeling better now, her lab work is starting to return and ETOH (units unknown) (unknown) (unknown) (no date) (unknown) (unknown) 2002 patient request s to take her home dosing of Seroquel 300 mg, this is (units unknown) (unknown) (unknown) (no date) (unknown) (unknown) 2022 with similar symptoms. She comes in complaining of needing help, states (units unknown) (unknown) (unknown) (no date) (unknown) (unknown) 25 mg PO BEDTIME PRN (Reason: insomnia) Qty: 20 0RF (units unknown) (unknown) (unknown) (no date) (unknown) (unknown) 325 mg PO Q6H PRN (Reason: pain) Qty: 20 0RF (units unknown) (unknown) (unknown) (no date) (unknown) (unknown) 4 Zofran was ordered . So has not been given, patient is signed out to (units unknown) (unknown) (unknown) (no date) (unknown) (unknown) 4 mg PO Q6H PRN (Reason: nausea and vomiting) Qty: 14 0RF (units unknown) (unknown) (unknown) (no date) (unknown) (unknown) 4 mg PO Q8H PRN (Reason: nausea and vomiting) Qty: 20 0RF (units unknown) (unknown) (unknown) (no date) (unknown) (unknown) 4 mg PO Q8H PRN (Reason: nausea and vomiting) Qty: 30 0RF (units unknown) (unknown) (unknown) (no date) (unknown) (unknown) 50 mg PO Q6H PRN (Reason: pain) Qty: 10 0RF (units unknown) (unknown) (unknown) (no date) (unknown) (unknown) 600 mg PO Q6HR PRN (Reason: Pain, Mild (1-3)) Qty: 30 0RF (units unknown) (unknown) (unknown) (no date) (unknown) (unknown) 750 mL of time. She just she has nothing to do but relapsed. This 3 weeks ago (units unknown) (unknown) (unknown) (no date) (unknown) (unknown) 9 points (units unknown) (unknown) (unknown) (no date) (unknown) (unknown) ALT (<35) IU/L (units unknown) (unknown) (unknown) (no date) (unknown) (unknown) ALT 21 (<35) IU/L (units unknown) (unknown) (unknown) (no date) (unknown) (unknown) AST (14-36) IU/L (units unknown) (unknown) (unknown) (no date) (unknown) (unknown) AST 67 H (14-36) IU/L (units unknown) (unknown) (unknown) (no date) (unknown) (unknown) Acetaminophen < 10 (10-30) ug/mL (units unknown) (unknown) (unknown) (no date) (unknown) (unknown) Acetaminophen (10-30 ) ug/mL (units unknown) (unknown) (unknown) (no date) (unknown) (unknown) Acetaminophen Stat (units unknown) (unknown) (unknown) (no date) (unknown) (unknown) Acute cystitis (units unknown) (unknown) (unknown) (no date) (unknown) (unknown) Age/Sex: 31 / F (units unknown) (unknown) (unknown) (no date) (unknown) (unknown) Agitation ?> 2 = (More severe symptoms) (units unknown) (unknown) (unknown) (no date) (unknown) (unknown) Albumin (3.5-5.0) g/dL (units unknown) (unknown) (unknown) (no date) (unknown) (unknown) Albumin 4.3 (3.5-5.0 ) g/dL (units unknown) (unknown) (unknown) (no date) (unknown) (unknown) Albumin/Globulin Ratio (1.0-2.8) (units unknown) (unknown) (unknown) (no date) (unknown) (unknown) Albumin/Globulin Ratio 1.4 (1.0-2.8) (units unknown) (unknown) (unknown) (no date) (unknown) (unknown) Alcohol use disorder (units unknown) (unknown) (unknown) (no date) (unknown) (unknown) Alcoholism (units unknown) (unknown) (unknown) (no date) (unknown) (unknown) Alkaline Phosphatase (38-126) U/L (units unknown) (unknown) (unknown) (no date) (unknown) (unknown) Alkaline Phosphatase 98 (38-126) U/L (units unknown) (unknown) (unknown) (no date) (unknown) (unknown) Allergies (units unknown) (unknown) (unknown) (no date) (unknown) (unknown) Allergy/AdvReac Type Severity Reaction Status Date / Time (units unknown) (unknown) (unknown) (no date) (unknown) (unknown) Anemia (-2018) (units unknown) (unknown) (unknown) (no date) (unknown) (unknown) Anxiety ?> 2 = (More severe symptoms) (units unknown) (unknown) (unknown) (no date) (unknown) (unknown) Auditory disturbance s ?> 1 = Very mild harshness or ability to frighten (units unknown) (unknown) (unknown) (no date) (unknown) (unknown) BUN (7-17) mg/dL (units unknown) (unknown) (unknown) (no date) (unknown) (unknown) BUN 9 (7-17) mg/dL (units unknown) (unknown) (unknown) (no date) (unknown) (unknown) BUN/Creatinine Ratio (6-22) (units unknown) (unknown) (unknown) (no date) (unknown) (unknown) BUN/Creatinine Ratio 11.0 (6-22) (units unknown) (unknown) (unknown) (no date) (unknown) (unknown) Baso # (Auto) (0-100 ) /uL (units unknown) (unknown) (unknown) (no date) (unknown) (unknown) Baso # (Auto) 0 (0-100) /uL (units unknown) (unknown) (unknown) (no date) (unknown) (unknown) Baso % (Auto) (0-2) % (units unknown) (unknown) (unknown) (no date) (unknown) (unknown) Baso % (Auto) 0.9 (0-2) % (units unknown) (unknown) (unknown) (no date) (unknown) (unknown) Bedside Urine Bilirubin - Negative (units unknown) (unknown) (unknown) (no date) (unknown) (unknown) Bedside Urine Glucos e Negative (units unknown) (unknown) (unknown) (no date) (unknown) (unknown) Bedside Urine Ketone - Negative (units unknown) (unknown) (unknown) (no date) (unknown) (unknown) Bedside Urine Leukocytes - Negative (units unknown) (unknown) (unknown) (no date) (unknown) (unknown) Bedside Urine Nitrit e + Positive (units unknown) (unknown) (unknown) (no date) (unknown) (unknown) Bedside Urine Occult Blood - Negative (units unknown) (unknown) (unknown) (no date) (unknown) (unknown) Bedside Urine Protei n - Negative (units unknown) (unknown) (unknown) (no date) (unknown) (unknown) Bedside Urine Urobilinogen - Negative (units unknown) (unknown) (unknown) (no date) (unknown) (unknown) Bedside Urine pH 6.0 (units unknown) (unknown) (unknown) (no date) (unknown) (unknown) Blood Pressure 112/6 2 07/12/22 16:10 (units unknown) (unknown) (unknown) (no date) (unknown) (unknown) Blood Pressure 112/62 (units unknown) (unknown) (unknown) (no date) (unknown) (unknown) Blood Pressure [Left Arm] 100/59 L (units unknown) (unknown) (unknown) (no date) (unknown) (unknown) CIWA is now worse an d she has tremors, anxiety is worsening and agitation, (units unknown) (unknown) (unknown) (no date) (unknown) (unknown) CIWA-Ar for Alcohol Withdrawal from [email or web address] on 07/12/2022 (units unknown) (unknown) (unknown) (no date) (unknown) (unknown) COVID19 -Nasal RAPID/Pre-Proc Stat (units unknown) (unknown) (unknown) (no date) (unknown) (unknown) Calcium (8.4-10.2) mg/dL (units unknown) (unknown) (unknown) (no date) (unknown) (unknown) Calcium 8.0 L (8.4-10.2) mg/dL (units unknown) (unknown) (unknown) (no date) (unknown) (unknown) Carbon Dioxide (22-32) mmol/L (units unknown) (unknown) (unknown) (no date) (unknown) (unknown) Carbon Dioxide 23 (22-32) mmol/L (units unknown) (unknown) (unknown) (no date) (unknown) (unknown) Cardiovascular: Tachycardic rate and rhythm, no peripheral edema, warm (units unknown) (unknown) (unknown) (no date) (unknown) (unknown) Cephalexin HCl (Cephalexin 250 Mg Capsule) 500 mg PO Q6H SANDY (units unknown) (unknown) (unknown) (no date) (unknown) (unknown) Chief Complaint: Alcohol intoxication, seeking detox (units unknown) (unknown) (unknown) (no date) (unknown) (unknown) Chief Complaint: Toxicology Problem (units unknown) (unknown) (unknown) (no date) (unknown) (unknown) Chloride (98-107) mmol/L (units unknown) (unknown) (unknown) (no date) (unknown) (unknown) Chloride 104 (98-107 ) mmol/L (units unknown) (unknown) (unknown) (no date) (unknown) (unknown) Clinical Impression: (units unknown) (unknown) (unknown) (no date) (unknown) (unknown) Clinical decision rules or scores evaluated: CIWA of 9 at 1753 (units unknown) (unknown) (unknown) (no date) (unknown) (unknown) Complete Blood Count AUTO DIFF Stat (units unknown) (unknown) (unknown) (no date) (unknown) (unknown) Comprehensive Metabolic Panel Stat (units unknown) (unknown) (unknown) (no date) (unknown) (unknown) 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 (units unknown) (unknown) (unknown) (no date) (unknown) (unknown) Course of care: Patient is a difficult IV stick, ordered IV with lab work, (units unknown) (unknown) (unknown) (no date) (unknown) (unknown) Course (units unknown) (unknown) (unknown) (no date) (unknown) (unknown) Creatinine (0.52-1.04) mg/dL (units unknown) (unknown) (unknown) (no date) (unknown) (unknown) Creatinine 0.82 (0.52-1.04) mg/dL (units unknown) (unknown) (unknown) (no date) (unknown) (unknown) Samantha Arthur gave her grilled cheese, soup, some juice and encouraged her to stay (units unknown) (unknown) (unknown) (no date) (unknown) (unknown) : 1990 Acct:[id number] (units unknown) (unknown) (unknown) (no date) (unknown) (unknown) Date of Service: 07/12/22 (units unknown) (unknown) (unknown) (no date) (unknown) (unknown) Departure (units unknown) (unknown) (unknown) (no date) (unknown) (unknown) Differential diagnoses include but are not limited to: Alcohol withdrawal, (units unknown) (unknown) (unknown) (no date) (unknown) (unknown) Discharge Plan (units unknown) (unknown) (unknown) (no date) (unknown) (unknown) Discontinued Medications (units unknown) (unknown) (unknown) (no date) (unknown) (unknown) Documented By: KB (units unknown) (unknown) (unknown) (no date) (unknown) (unknown) Documented By: OW (units unknown) (unknown) (unknown) (no date) (unknown) (unknown) ECG Data (units unknown) (unknown) (unknown) (no date) (unknown) (unknown) ED Orders (units unknown) (unknown) (unknown) (no date) (unknown) (unknown) EKG independently reviewed by myself at 1830 reveals normal sinus rhythm at 72 (units unknown) (unknown) (unknown) (no date) (unknown) (unknown) EKG-12 Lead Stat (units unknown) (unknown) (unknown) (no date) (unknown) (unknown) ER Physician: Reinaldo Arthur D.O. (units unknown) (unknown) (unknown) (no date) (unknown) (unknown) Emergency Report (units unknown) (unknown) (unknown) (no date) (unknown) (unknown) Eos # (Auto) (0-450) /uL (units unknown) (unknown) (unknown) (no date) (unknown) (unknown) Eos # (Auto) 0 (0-450) /uL (units unknown) (unknown) (unknown) (no date) (unknown) (unknown) Eos % (Auto) (2-4) % (units unknown) (unknown) (unknown) (no date) (unknown) (unknown) Eos % (Auto) 0.3 L (2-4) % (units unknown) (unknown) (unknown) (no date) (unknown) (unknown) Esterase (units unknown) (unknown) (unknown) (no date) (unknown) (unknown) Estimated GFR > 60 (>60) mL/min (units unknown) (unknown) (unknown) (no date) (unknown) (unknown) Estimated GFR (>60) mL/min (units unknown) (unknown) (unknown) (no date) (unknown) (unknown) Ethanol (ETOH) Stat (units unknown) (unknown) (unknown) (no date) (unknown) (unknown) Ethyl Alcohol ( - 10 ) mg/dL (units unknown) (unknown) (unknown) (no date) (unknown) (unknown) Ethyl Alcohol 338 H ( - 10) mg/dL (units unknown) (unknown) (unknown) (no date) (unknown) (unknown) Exam Narrative: (units unknown) (unknown) (unknown) (no date) (unknown) (unknown) Exam (units unknown) (unknown) (unknown) (no date) (unknown) (unknown) Family History (units unknown) (unknown) (unknown) (no date) (unknown) (unknown) Family/Other Alcoholism (units unknown) (unknown) (unknown) (no date) (unknown) (unknown) Family/Other Diabete s mellitus (units unknown) (unknown) (unknown) (no date) (unknown) (unknown) Father Alcoholism (units unknown) (unknown) (unknown) (no date) (unknown) (unknown) Tonia Schneider MD [Primary Care Provider] (units unknown) (unknown) (unknown) (no date) (unknown) (unknown) Folic Acid (Folic Acid 1 Mg Tablet) 1 mg PO DAILY SANDY (units unknown) (unknown) (unknown) (no date) (unknown) (unknown) Free T4 (0.78-2.19) ng/dL (units unknown) (unknown) (unknown) (no date) (unknown) (unknown) Free T4 0.93 (0.78-2.19) ng/dL (units unknown) (unknown) (unknown) (no date) (unknown) (unknown) Free T4, Direct Thyroxine Stat (units unknown) (unknown) (unknown) (no date) (unknown) (unknown) GI: abdomen soft, nontender to palpation, nondistended, without masses, rebound (units unknown) (unknown) (unknown) (no date) (unknown) (unknown) General (units unknown) (unknown) (unknown) (no date) (unknown) (unknown) General: cooperative , comfortable, in no acute distress, well groomed, appears (units unknown) (unknown) (unknown) (no date) (unknown) (unknown) Globulin (1.7-4.1) g/dL (units unknown) (unknown) (unknown) (no date) (unknown) (unknown) Globulin 3.0 (1.7-4.1) g/dL (units unknown) (unknown) (unknown) (no date) (unknown) (unknown) Glucose (70-100) mg/dL (units unknown) (unknown) (unknown) (no date) (unknown) (unknown) Glucose 111 H (70-100) mg/dL (units unknown) (unknown) (unknown) (no date) (unknown) (unknown) Grandfather Smoker (units unknown) (unknown) (unknown) (no date) (unknown) (unknown) Grandfather Unknown whether patient has any health problems (units unknown) (unknown) (unknown) (no date) (unknown) (unknown) Grandmother Diabetes mellitus (units unknown) (unknown) (unknown) (no date) (unknown) (unknown) Grandmother Hypoglycemia (units unknown) (unknown) (unknown) (no date) (unknown) (unknown) H/O dilation and curettage (-12/14/16) (units unknown) (unknown) (unknown) (no date) (unknown) (unknown) H/O wisdom tooth extraction (-2013) (units unknown) (unknown) (unknown) (no date) (unknown) (unknown) HEENT: symmetrical facial expressions, dry mucous membranes (units unknown) (unknown) (unknown) (no date) (unknown) (unknown) HPI - Alcohol (units unknown) (unknown) (unknown) (no date) (unknown) (unknown) HPI narrative: (units unknown) (unknown) (unknown) (no date) (unknown) (unknown) Hct (36-46) % (units unknown) (unknown) (unknown) (no date) (unknown) (unknown) Hct 35.3 L (36-46) % (units unknown) (unknown) (unknown) (no date) (unknown) (unknown) Headache/fullness in head ?> 1 = Very mild (units unknown) (unknown) (unknown) (no date) (unknown) (unknown) Hematuria presence: without hematuria Qualified Code(s): N30.00 - Acute (units unknown) (unknown) (unknown) (no date) (unknown) (unknown) Hgb (12.0-16.0) g/dL (units unknown) (unknown) (unknown) (no date) (unknown) (unknown) Hgb 11.5 L (12.0-16.0) g/dL (units unknown) (unknown) (unknown) (no date) (unknown) (unknown) History of Present Illness (units unknown) (unknown) (unknown) (no date) (unknown) (unknown) Home Medications (units unknown) (unknown) (unknown) (no date) (unknown) (unknown) I have independently reviewed the patient's vital signs and nursing notes as (units unknown) (unknown) (unknown) (no date) (unknown) (unknown) INPUTS: (units unknown) (unknown) (unknown) (no date) (unknown) (unknown) Independent historian: Patient (units unknown) (unknown) (unknown) (no date) (unknown) (unknown) Initial Vital Signs (units unknown) (unknown) (unknown) (no date) (unknown) (unknown) Initial Vital Signs: (units unknown) (unknown) (unknown) (no date) (unknown) (unknown) Insomnia (units unknown) (unknown) (unknown) (no date) (unknown) (unknown) Interpretation: (units unknown) (unknown) (unknown) (no date) (unknown) (unknown) [address] [address] (units unknown) (unknown) (unknown) (no date) (unknown) (unknown) Lab Data (units unknown) (unknown) (unknown) (no date) (unknown) (unknown) Lab Results (units unknown) (unknown) (unknown) (no date) (unknown) (unknown) Labs: (units unknown) (unknown) (unknown) (no date) (unknown) (unknown) Last Admin: 07/12/22 18:39 Dose: 4 mg (units unknown) (unknown) (unknown) (no date) (unknown) (unknown) Last Admin: 07/12/22 18:40 Dose: 1 mg (units unknown) (unknown) (unknown) (no date) (unknown) (unknown) Last Admin: 07/12/22 18:56 Dose: Not Given (units unknown) (unknown) (unknown) (no date) (unknown) (unknown) Last Admin: 07/12/22 19:47 Dose: 500 mg (units unknown) (unknown) (unknown) (no date) (unknown) (unknown) Last Admin: 07/12/22 19:48 Dose: 2 mg (units unknown) (unknown) (unknown) (no date) (unknown) (unknown) Last Admin: 07/12/22 19:49 Dose: 100 mg (units unknown) (unknown) (unknown) (no date) (unknown) (unknown) Librium but she does not have this medicine with her, she only has the Seroquel. (units unknown) (unknown) (unknown) (no date) (unknown) (unknown) Lorazepam (Lorazepam 0.5 Mg Tablet) 1 mg PO NOW ONE (units unknown) (unknown) (unknown) (no date) (unknown) (unknown) Lorazepam (Lorazepam 0.5 Mg Tablet) 2 mg PO NOW ONE (units unknown) (unknown) (unknown) (no date) (unknown) (unknown) Lorazepam (Lorazepam 2 Mg/Ml Inj) 2 mg IV NOW ONE (units unknown) (unknown) (unknown) (no date) (unknown) (unknown) Lymph # (Auto) (8647-7523) /uL (units unknown) (unknown) (unknown) (no date) (unknown) (unknown) Lymph # (Auto) 1700 (2058-1353) /uL (units unknown) (unknown) (unknown) (no date) (unknown) (unknown) Lymph % (Auto) (25-40) % (units unknown) (unknown) (unknown) (no date) (unknown) (unknown) Lymph % (Auto) 50.6 H (25-40) % (units unknown) (unknown) (unknown) (no date) (unknown) (unknown) MCH (26-34) PG (units unknown) (unknown) (unknown) (no date) (unknown) (unknown) MCH 26.0 (26-34) PG (units unknown) (unknown) (unknown) (no date) (unknown) (unknown) MCHC (30-36) % (units unknown) (unknown) (unknown) (no date) (unknown) (unknown) MCHC 32.7 (30-36) % (units unknown) (unknown) (unknown) (no date) (unknown) (unknown) MCV (80-100) fL (units unknown) (unknown) (unknown) (no date) (unknown) (unknown) MCV 79.5 L (80-100) fL (units unknown) (unknown) (unknown) (no date) (unknown) (unknown) MDM - Alcohol (units unknown) (unknown) (unknown) (no date) (unknown) (unknown) MDM Narrative (units unknown) (unknown) (unknown) (no date) (unknown) (unknown) MIPS: This encounter doesn't have any diagnosis' associated with MIPS criteria. (units unknown) (unknown) (unknown) (no date) (unknown) (unknown) MSK: moves all extremities, neurovascularly intact, no weakness, normal tone no (units unknown) (unknown) (unknown) (no date) (unknown) (unknown) Medical History (units unknown) (unknown) (unknown) (no date) (unknown) (unknown) Medical decision making narrative: (units unknown) (unknown) (unknown) (no date) (unknown) (unknown) Medication Instructions Recorded Confirmed (units unknown) (unknown) (unknown) (no date) (unknown) (unknown) Medication Instructions Recorded (units unknown) (unknown) (unknown) (no date) (unknown) (unknown) Menometrorrhagia (units unknown) (unknown) (unknown) (no date) (unknown) (unknown) Mode of arrival: Ambulatory (units unknown) (unknown) (unknown) (no date) (unknown) (unknown) [place] # (Auto) (0-900 ) /uL (units unknown) (unknown) (unknown) (no date) (unknown) (unknown) [place] # (Auto) 100 (0-900) /uL (units unknown) (unknown) (unknown) (no date) (unknown) (unknown) [place] % (Auto) (3-14) % (units unknown) (unknown) (unknown) (no date) (unknown) (unknown) [place] % (Auto) 2.7 L (3-14) % (units unknown) (unknown) (unknown) (no date) (unknown) (unknown) Mother Diabetes mellitus (units unknown) (unknown) (unknown) (no date) (unknown) (unknown) Narrative (units unknown) (unknown) (unknown) (no date) (unknown) (unknown) Nausea/vomiting ?> 0 = No nausea and no vomiting (units unknown) (unknown) (unknown) (no date) (unknown) (unknown) Neuro: normal speech and cognition, A+O x3, ambulatory, clear speech (units unknown) (unknown) (unknown) (no date) (unknown) (unknown) Neut # (Auto) (1841-5265) /uL (units unknown) (unknown) (unknown) (no date) (unknown) (unknown) Neut # (Auto) 1500 (4948-3304) /uL (units unknown) (unknown) (unknown) (no date) (unknown) (unknown) Neut % (Auto) (50-75 ) % (units unknown) (unknown) (unknown) (no date) (unknown) (unknown) Neut % (Auto) 45.5 L (50-75) % (units unknown) (unknown) (unknown) (no date) (unknown) (unknown) No Action (units unknown) (unknown) (unknown) (no date) (unknown) (unknown) Obesity (units unknown) (unknown) (unknown) (no date) (unknown) (unknown) Ondansetron HCl (Ondansetron 4 Mg Odt) 4 mg SL NOW ONE (units unknown) (unknown) (unknown) (no date) (unknown) (unknown) Ondansetron HCl (Ondansetron 4 Mg/2 Ml Inj) 4 mg IV Q6HR PRN (units unknown) (unknown) (unknown) (no date) (unknown) (unknown) Ordered: (units unknown) (unknown) (unknown) (no date) (unknown) (unknown) Orders (units unknown) (unknown) (unknown) (no date) (unknown) (unknown) Orientation/clouding of sensorium ?> 0 = Oriented, can do serial additions (units unknown) (unknown) (unknown) (no date) (unknown) (unknown) Overweight (units unknown) (unknown) (unknown) (no date) (unknown) (unknown) Oxygen Delivery Method Room Air 07/12/22 16:10 (units unknown) (unknown) (unknown) (no date) (unknown) (unknown) Oxygen Delivery Method Room Air Room Air (units unknown) (unknown) (unknown) (no date) (unknown) (unknown) PRN Reason: Nausea And Vomiting (units unknown) (unknown) (unknown) (no date) (unknown) (unknown) Paroxysmal sweats ?> 0 = No sweat visible (units unknown) (unknown) (unknown) (no date) (unknown) (unknown) Patient Disposition: [facility] (units unknown) (unknown) (unknown) (no date) (unknown) (unknown) Patient History (units unknown) (unknown) (unknown) (no date) (unknown) (unknown) Patient has allergy to Reglan and hydrocodone. She denies urinary frequency, (units unknown) (unknown) (unknown) (no date) (unknown) (unknown) Patient's CIWA at 2019 is 12, I ordered for her 2 more mg of lorazepam p.o., (units unknown) (unknown) (unknown) (no date) (unknown) (unknown) Patient: DorySarah R MR#: M (units unknown) (unknown) (unknown) (no date) (unknown) (unknown) Patients with scores >= may require medication for withdrawal. (units unknown) (unknown) (unknown) (no date) (unknown) (unknown) Pertinent lab findings reviewed: CBC is pertinent for mild leukopenia of 3.3, (units unknown) (unknown) (unknown) (no date) (unknown) (unknown) Plt Count (150-400) X103/uL (units unknown) (unknown) (unknown) (no date) (unknown) (unknown) Plt Count 226 (150-400) X103/uL (units unknown) (unknown) (unknown) (no date) (unknown) (unknown) Point of Care Testing (units unknown) (unknown) (unknown) (no date) (unknown) (unknown) Potassium (3.4-5.1) mmol/L (units unknown) (unknown) (unknown) (no date) (unknown) (unknown) Potassium 3.9 (3.4-5.1) mmol/L (units unknown) (unknown) (unknown) (no date) (unknown) (unknown) Test Results Negative (units unknown) (unknown) (unknown) (no date) (unknown) (unknown) Prescriptions: (units unknown) (unknown) (unknown) (no date) (unknown) (unknown) Previous Rx's (units unknown) (unknown) (unknown) (no date) (unknown) (unknown) Psych: mental status is intact, patient has a normal affect although she is (units unknown) (unknown) (unknown) (no date) (unknown) (unknown) Pulse Oximetry 99 07/12/22 16:10 (units unknown) (unknown) (unknown) (no date) (unknown) (unknown) Pulse Oximetry 99 99 (units unknown) (unknown) (unknown) (no date) (unknown) (unknown) Pulse Rate 82 07/12/22 16:10 (units unknown) (unknown) (unknown) (no date) (unknown) (unknown) Pulse Rate 82 86 (units unknown) (unknown) (unknown) (no date) (unknown) (unknown) Qualifiers: (units unknown) (unknown) (unknown) (no date) (unknown) (unknown) Questions are addressed and there is agreement with the plan and for follow-up. (units unknown) (unknown) (unknown) (no date) (unknown) (unknown) RBC (4.0-5.2) X106/uL (units unknown) (unknown) (unknown) (no date) (unknown) (unknown) RBC 4.44 (4.0-5.2) X106/uL (units unknown) (unknown) (unknown) (no date) (unknown) (unknown) RDW (11.6-14.8) % (units unknown) (unknown) (unknown) (no date) (unknown) (unknown) RDW 17.3 H (11.6-14.8) % (units unknown) (unknown) (unknown) (no date) (unknown) (unknown) RESULT SUMMARY: (units unknown) (unknown) (unknown) (no date) (unknown) (unknown) ROS Unobtainable: Al l systems reviewed + are unremarkable except as noted in HPI (units unknown) (unknown) (unknown) (no date) (unknown) (unknown) Referrals: (units unknown) (unknown) (unknown) (no date) (unknown) (unknown) Related Data (units unknown) (unknown) (unknown) (no date) (unknown) (unknown) Respiratory Rate 14 07/12/22 16:10 (units unknown) (unknown) (unknown) (no date) (unknown) (unknown) Respiratory Rate 14 22 (units unknown) (unknown) (unknown) (no date) (unknown) (unknown) Respiratory: normal effort, able to speak in complete sentences, without (units unknown) (unknown) (unknown) (no date) (unknown) (unknown) Review of Systems (units unknown) (unknown) (unknown) (no date) (unknown) (unknown) Reviewed vitals sign s and nursing notes. (units unknown) (unknown) (unknown) (no date) (unknown) (unknown) S/P myringotomy with insertion of tube (units unknown) (unknown) (unknown) (no date) (unknown) (unknown) SARS-CoV-2 (PCR) (Negative) (units unknown) (unknown) (unknown) (no date) (unknown) (unknown) SARS-CoV-2 (PCR) Negative (Negative) (units unknown) (unknown) (unknown) (no date) (unknown) (unknown) (spontaneous vaginal delivery) (-09/05/18) (units unknown) (unknown) (unknown) (no date) (unknown) (unknown) Salicylate Stat (units unknown) (unknown) (unknown) (no date) (unknown) (unknown) Salicylates < 1.0 (<20) mg/dL (units unknown) (unknown) (unknown) (no date) (unknown) (unknown) Salicylates (<20) mg/dL (units unknown) (unknown) (unknown) (no date) (unknown) (unknown) She was given a couple water, a diet order was ordered however they may not (units unknown) (unknown) (unknown) (no date) (unknown) (unknown) Signed By: (units unknown) (unknown) (unknown) (no date) (unknown) (unknown) Skin: brisk capillar y refill, without pallor or erythema (units unknown) (unknown) (unknown) (no date) (unknown) (unknown) Smoker (units unknown) (unknown) (unknown) (no date) (unknown) (unknown) [place] in the past. She has been sober for a total of 18 (units unknown) (unknown) (unknown) (no date) (unknown) (unknown) Smoking Status: Former smoker (units unknown) (unknown) (unknown) (no date) (unknown) (unknown) Social History (units unknown) (unknown) (unknown) (no date) (unknown) (unknown) Social consideration s that may affect disposition: none (units unknown) (unknown) (unknown) (no date) (unknown) (unknown) Sodium (137-145) mmol/L (units unknown) (unknown) (unknown) (no date) (unknown) (unknown) Sodium 140 (137-145) mmol/L (units unknown) (unknown) (unknown) (no date) (unknown) (unknown) Sodium Chloride (Normal Saline 0.9%) 1,000 mls @ 1,000 mls/hr IV BOLUS ONE (units unknown) (unknown) (unknown) (no date) (unknown) (unknown) Source: patient (units unknown) (unknown) (unknown) (no date) (unknown) (unknown) Stated Complaint: Stress/Depression (units unknown) (unknown) (unknown) (no date) (unknown) (unknown) Stop: 07/12/22 17:33 (units unknown) (unknown) (unknown) (no date) (unknown) (unknown) Stop: 07/12/22 17:45 (units unknown) (unknown) (unknown) (no date) (unknown) (unknown) Stop: 07/12/22 18:28 (units unknown) (unknown) (unknown) (no date) (unknown) (unknown) Stop: 07/12/22 18:31 (units unknown) (unknown) (unknown) (no date) (unknown) (unknown) Stop: 07/12/22 19:25 (units unknown) (unknown) (unknown) (no date) (unknown) (unknown) Stop: 07/12/22 20:03 (units unknown) (unknown) (unknown) (no date) (unknown) (unknown) Substance Use Type: does not use (units unknown) (unknown) (unknown) (no date) (unknown) (unknown) Surgical History (units unknown) (unknown) (unknown) (no date) (unknown) (unknown) Tactile disturbances ?> 1 = Very mild itching, pin and needles, burning, or (units unknown) (unknown) (unknown) (no date) (unknown) (unknown) Temperature 97.2 F L 07/12/22 16:10 (units unknown) (unknown) (unknown) (no date) (unknown) (unknown) Temperature 97.2 F L (units unknown) (unknown) (unknown) (no date) (unknown) (unknown) Thiamine HCl (Thiamine 100 Mg Tablet) 100 mg PO NOW ONE (units unknown) (unknown) (unknown) (no date) (unknown) (unknown) Thiamine HCl 200 mg/ Sodium (Chloride) 102 mls @ 408 mls/hr IV NOW ONE (units unknown) (unknown) (unknown) (no date) (unknown) (unknown) This is a 31-year-ol d female with history of alcohol abuse and appears to have (units unknown) (unknown) (unknown) (no date) (unknown) (unknown) Thyroid Stimulating Hormone Stat (units unknown) (unknown) (unknown) (no date) (unknown) (unknown) Time Seen by Provider: 07/12/22 17:05 (units unknown) (unknown) (unknown) (no date) (unknown) (unknown) Total Bilirubin (0.2-1.3) mg/dL (units unknown) (unknown) (unknown) (no date) (unknown) (unknown) Total Bilirubin 0.4 (0.2-1.3) mg/dL (units unknown) (unknown) (unknown) (no date) (unknown) (unknown) Total Protein (6.3-8.2) g/dL (units unknown) (unknown) (unknown) (no date) (unknown) (unknown) Total Protein 7.3 (6.3-8.2) g/dL (units unknown) (unknown) (unknown) (no date) (unknown) (unknown) Tremor ?> 1 = Not visible, but can be felt fingertip to fingertip (units unknown) (unknown) (unknown) (no date) (unknown) (unknown) U Benzodiazepines Scrn (Negative) (units unknown) (unknown) (unknown) (no date) (unknown) (unknown) U Benzodiazepines Scrn Negative (Negative) (units unknown) (unknown) (unknown) (no date) (unknown) (unknown) U Marijuana (THC) Screen (Negative) (units unknown) (unknown) (unknown) (no date) (unknown) (unknown) U Marijuana (THC) Screen Negative (Negative) (units unknown) (unknown) (unknown) (no date) (unknown) (unknown) U Methamphetamines Scrn (Negative) (units unknown) (unknown) (unknown) (no date) (unknown) (unknown) U Methamphetamines Scrn Negative (Negative) (units unknown) (unknown) (unknown) (no date) (unknown) (unknown) U Opiates 300ng/mL cut (Negative) (units unknown) (unknown) (unknown) (no date) (unknown) (unknown) U Opiates 300ng/mL cut Negative (Negative) (units unknown) (unknown) (unknown) (no date) (unknown) (unknown) U Tricyclic Antidepress (Negative) (units unknown) (unknown) (unknown) (no date) (unknown) (unknown) U Tricyclic Antidepress Negative (Negative) (units unknown) (unknown) (unknown) (no date) (unknown) (unknown) Ur Amphetamines Screen (Negative) (units unknown) (unknown) (unknown) (no date) (unknown) (unknown) Ur Amphetamines Screen Negative (Negative) (units unknown) (unknown) (unknown) (no date) (unknown) (unknown) Ur Barbiturates Screen (Negative) (units unknown) (unknown) (unknown) (no date) (unknown) (unknown) Ur Barbiturates Screen Negative (Negative) (units unknown) (unknown) (unknown) (no date) (unknown) (unknown) Ur Culture Indicated ? Specimen cultured (units unknown) (unknown) (unknown) (no date) (unknown) (unknown) Ur Culture Indicated? (units unknown) (unknown) (unknown) (no date) (unknown) (unknown) Ur MDMA Scrn (Ecstasy) (Negative) (units unknown) (unknown) (unknown) (no date) (unknown) (unknown) Ur MDMA Scrn (Ecstasy) Negative (Negative) (units unknown) (unknown) (unknown) (no date) (unknown) (unknown) Ur Oxycodone Screen (Negative) (units unknown) (unknown) (unknown) (no date) (unknown) (unknown) Ur Oxycodone Screen Negative (Negative) (units unknown) (unknown) (unknown) (no date) (unknown) (unknown) Ur Phencyclidine Scr n (Negative) (units unknown) (unknown) (unknown) (no date) (unknown) (unknown) Ur Phencyclidine Scr n Negative (Negative) (units unknown) (unknown) (unknown) (no date) (unknown) (unknown) Ur Squamous Epith Cells (0-5/HPF) (units unknown) (unknown) (unknown) (no date) (unknown) (unknown) Ur Squamous Epith Cells 1-5 /hpf (0-5/HPF) (units unknown) (unknown) (unknown) (no date) (unknown) (unknown) Urine Bacteria (None) (units unknown) (unknown) (unknown) (no date) (unknown) (unknown) Urine Bacteria Many (>30) H (None) (units unknown) (unknown) (unknown) (no date) (unknown) (unknown) Urine Cocaine Screen (Negative) (units unknown) (unknown) (unknown) (no date) (unknown) (unknown) Urine Cocaine Screen Negative (Negative) (units unknown) (unknown) (unknown) (no date) (unknown) (unknown) Urine Culture Stat (units unknown) (unknown) (unknown) (no date) (unknown) (unknown) Urine Dip (units unknown) (unknown) (unknown) (no date) (unknown) (unknown) Urine Drug Screen, Rapid Stat (units unknown) (unknown) (unknown) (no date) (unknown) (unknown) Urine Methadone Screen (Negative) (units unknown) (unknown) (unknown) (no date) (unknown) (unknown) Urine Methadone Screen Negative (Negative) (units unknown) (unknown) (unknown) (no date) (unknown) (unknown) Urine Microscopic Stat (units unknown) (unknown) (unknown) (no date) (unknown) (unknown) Urine RBC (0-5/HPF) (units unknown) (unknown) (unknown) (no date) (unknown) (unknown) Urine RBC 1-5/hpf (0-5/HPF) (units unknown) (unknown) (unknown) (no date) (unknown) (unknown) Urine Specific [place] 1.015 (units unknown) (unknown) (unknown) (no date) (unknown) (unknown) Urine WBC (0-5/HPF) (units unknown) (unknown) (unknown) (no date) (unknown) (unknown) Urine WBC 1-5/hpf (0-5/HPF) (units unknown) (unknown) (unknown) (no date) (unknown) (unknown) Urine microscopy wit h many bacteria, pending for culture, will treat for acute (units unknown) (unknown) (unknown) (no date) (unknown) (unknown) Visual disturbances ?> 1 = Very mild sensitivity (units unknown) (unknown) (unknown) (no date) (unknown) (unknown) Vital Signs - 8 hr (units unknown) (unknown) (unknown) (no date) (unknown) (unknown) Vital Signs (units unknown) (unknown) (unknown) (no date) (unknown) (unknown) Vital signs: (units unknown) (unknown) (unknown) (no date) (unknown) (unknown) WBC (4.5-11.0) X103/uL (units unknown) (unknown) (unknown) (no date) (unknown) (unknown) WBC 3.3 L (4.5-11.0) X103/uL (units unknown) (unknown) (unknown) (no date) (unknown) (unknown) [Embedded Image Not Available] (units unknown) (unknown) (unknown) (no date) (unknown) (unknown) [METOCLOPRAMIDE] (units unknown) (unknown) (unknown) (no date) (unknown) (unknown) acceptable. She is nauseated, without vomiting, received Zofran previously and (units unknown) (unknown) (unknown) (no date) (unknown) (unknown) acetaminophen 325 mg tablet 325 mg PO Q6H PRN pain #20 tabs 02/05/20 (units unknown) (unknown) (unknown) (no date) (unknown) (unknown) acetaminophen [Tylenol] 325 mg tablet (units unknown) (unknown) (unknown) (no date) (unknown) (unknown) alcohol in 300s, she was last here in the emergency department in May of (units unknown) (unknown) (unknown) (no date) (unknown) (unknown) alcohol intake frequency: 3 or more drinks per day (units unknown) (unknown) (unknown) (no date) (unknown) (unknown) alcohol intake: former (units unknown) (unknown) (unknown) (no date) (unknown) (unknown) and below (units unknown) (unknown) (unknown) (no date) (unknown) (unknown) and she drinking daily since this happened. She wants rehab. She has been (units unknown) (unknown) (unknown) (no date) (unknown) (unknown) anxious, intoxicated and now withdrawing. pleasant and cooperative (units unknown) (unknown) (unknown) (no date) (unknown) (unknown) arrhythmia, or acute ischemic changes. (units unknown) (unknown) (unknown) (no date) (unknown) (unknown) at extension and states that she feels symptoms of alcohol withdrawal. Denies (units unknown) (unknown) (unknown) (no date) (unknown) (unknown) being depressed at this time, CIWA is an 8. (units unknown) (unknown) (unknown) (no date) (unknown) (unknown) bpm with rightward axis and normal intervals. No STEMI, ST segment changes, (units unknown) (unknown) (unknown) (no date) (unknown) (unknown) current occupational exposures/hazards: Yes (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 with Pandemic ) (units unknown) (unknown) (unknown) (no date) (unknown) (unknown) cystitis without hematuria (units unknown) (unknown) (unknown) (no date) (unknown) (unknown) cystitis (units unknown) (unknown) (unknown) (no date) (unknown) (unknown) cystitis, she is p.o . tolerant, still pending lab work (units unknown) (unknown) (unknown) (no date) (unknown) (unknown) deliver since it is after 17:00 and the diet order was ordered at 17:30. Samira (units unknown) (unknown) (unknown) (no date) (unknown) (unknown) detox 11 times, states that it has taking Antabuse, Librium, Ativan, she denies (units unknown) (unknown) (unknown) (no date) (unknown) (unknown) detox as well. (units unknown) (unknown) (unknown) (no date) (unknown) (unknown) diarrhea or current stool changes. (units unknown) (unknown) (unknown) (no date) (unknown) (unknown) diphenhydramine HCl 25 mg capsule 25 mg PO BEDTIME PRN insomnia #20 02/05/20 (units unknown) (unknown) (unknown) (no date) (unknown) (unknown) diphenhydramine HCl [Benadryl] 25 mg capsule (units unknown) (unknown) (unknown) (no date) (unknown) (unknown) docusate sodium 100 mg capsule 100 mg PO BID #30 caps 02/05/20 (units unknown) (unknown) (unknown) (no date) (unknown) (unknown) docusate sodium [Colace] 100 mg capsule (units unknown) (unknown) (unknown) (no date) (unknown) (unknown) draw her labs (units unknown) (unknown) (unknown) (no date) (unknown) (unknown) education level: college (units unknown) (unknown) (unknown) (no date) (unknown) (unknown) electrolyte abnormalities. 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[employer] (units unknown) (unknown) (unknown) (no date) (unknown) (unknown) fidgeting (units unknown) (unknown) (unknown) (no date) (unknown) (unknown) fluid, EtOH, and CIWA, ordered 2 mg of IV lorazepam for patient's symptoms, (units unknown) (unknown) (unknown) (no date) (unknown) (unknown) for alcohol related complaints through 2019, and she presented to the [facility] (units unknown) (unknown) (unknown) (no date) (unknown) (unknown) from social work is aware and pending her lab work to arrange for inpatient (units unknown) (unknown) (unknown) (no date) (unknown) (unknown) go to detox. She is currently intoxicated endorses symptoms of alcohol (units unknown) (unknown) (unknown) (no date) (unknown) (unknown) her urine microscopy came back positive for many bacteria, will treat for acute (units unknown) (unknown) (unknown) (no date) (unknown) (unknown) household members: spouse and children (units unknown) (unknown) (unknown) (no date) (unknown) (unknown) hydrated. (units unknown) (unknown) (unknown) (no date) (unknown) (unknown) hydrocodone [HYDROCODONE] AdvReac Unknown VOMITING Verified 07/12/22 16:18 (units unknown) (unknown) (unknown) (no date) (unknown) (unknown) ibuprofen 600 mg Tablet (units unknown) (unknown) (unknown) (no date) (unknown) (unknown) ibuprofen 600 mg tablet 600 mg PO Q6HR PRN Pain, Mild 07/04/20 (units unknown) (unknown) (unknown) (no date) (unknown) (unknown) intoxicated, pleasant, interactive and comfortable although active, anxious and (units unknown) (unknown) (unknown) (no date) (unknown) (unknown) is 338, COVID PCR wa s negative, drug screen is negative for all tested agents, (units unknown) (unknown) (unknown) (no date) (unknown) (unknown) is allergic to Reglan, will dose with another 5 mg of Zofran, no QT prolongation (units unknown) (unknown) (unknown) (no date) (unknown) (unknown) knowing if she is cox d phenobarbital in the past. (units unknown) (unknown) (unknown) (no date) (unknown) (unknown) limited history currently due to intoxication. She states that she is recently (units unknown) (unknown) (unknown) (no date) (unknown) (unknown) lorazepam at 2 mg fo r this. (units unknown) (unknown) (unknown) (no date) (unknown) (unknown) marital status: (units unknown) (unknown) (unknown) (no date) (unknown) (unknown) metoclopramide Allergy Mild RASH/HIVES Verified 07/12/22 16:18 (units unknown) (unknown) (unknown) (no date) (unknown) (unknown) mild anemia but improved from her prior with H+H of 11.5 and 35.3, no evidence (units unknown) (unknown) (unknown) (no date) (unknown) (unknown) months. She denies any recent injuries, denies chance of , denies any (units unknown) (unknown) (unknown) (no date) (unknown) (unknown) nausea vomiting or abdominal pain at this time. Denies any vomiting home or (units unknown) (unknown) (unknown) (no date) (unknown) (unknown) number of children: 1 (units unknown) (unknown) (unknown) (no date) (unknown) (unknown) numbness (units unknown) (unknown) (unknown) (no date) (unknown) (unknown) occupational status: employed (units unknown) (unknown) (unknown) (no date) (unknown) (unknown) of bleeding anywhere , CMP (units unknown) (unknown) (unknown) (no date) (unknown) (unknown) on her EKG, patient is alert and oriented x3, complaining of feeling poorly and (units unknown) (unknown) (unknown) (no date) (unknown) (unknown) ondansetron 4 mg disintegrating 4 mg PO Q6H PRN nausea and 06/12/22 (units unknown) (unknown) (unknown) (no date) (unknown) (unknown) ondansetron 4 mg disintegrating 4 mg PO Q8H PRN nausea and 01/01/20 (units unknown) (unknown) (unknown) (no date) (unknown) (unknown) ondansetron 4 mg disintegrating 4 mg PO Q8H PRN nausea and 02/05/20 (units unknown) (unknown) (unknown) (no date) (unknown) (unknown) ondansetron 4 mg tablet,disintegrating (units unknown) (unknown) (unknown) (no date) (unknown) (unknown) ordered p.o. Ativan for her symptoms and ask our into call lab to come up and (units unknown) (unknown) (unknown) (no date) (unknown) (unknown) other ingestions, is pleasant, seeking help with her intoxication and wishes to (units unknown) (unknown) (unknown) (no date) (unknown) (unknown) patient's is at the bedside offering support, she raises nausea, another (units unknown) (unknown) (unknown) (no date) (unknown) (unknown) prenat.vits,otis,min- i thang-folic 1 tab PO DAILY 12/30/19 07/03/20 (units unknown) (unknown) (unknown) (no date) (unknown) (unknown) prenat.vits,otis,min- i thang-folic Tablet (units unknown) (unknown) (unknown) (no date) (unknown) (unknown) relapsed due to a divorce with her . She used to be a frequent visitor (units unknown) (unknown) (unknown) (no date) (unknown) (unknown) second hand exposure : No (growing up as a child - not currently) (units unknown) (unknown) (unknown) (no date) (unknown) (unknown) significant tremor o r tongue fasciculation, she has a mild tremor with her arms (units unknown) (unknown) (unknown) (no date) (unknown) (unknown) social work and orders are pending (units unknown) (unknown) (unknown) (no date) (unknown) (unknown) special renee needs: No (units unknown) (unknown) (unknown) (no date) (unknown) (unknown) substance abuse, alcohol intoxication, psychosis, mood disorder, depression (units unknown) (unknown) (unknown) (no date) (unknown) (unknown) substance use type: does not use (units unknown) (unknown) (unknown) (no date) (unknown) (unknown) tablet vomiting #14 tabs (units unknown) (unknown) (unknown) (no date) (unknown) (unknown) tablet vomiting #20 tabs (units unknown) (unknown) (unknown) (no date) (unknown) (unknown) tablet vomiting #30 tabs (units unknown) (unknown) (unknown) (no date) (unknown) (unknown) tenderness or exquisite tenderness with exam. (units unknown) (unknown) (unknown) (no date) (unknown) (unknown) that she drinks vodk a and admits to drinking heavily today, states that she took (units unknown) (unknown) (unknown) (no date) (unknown) (unknown) the bottle upside down and started checking from it. She states that she drank (units unknown) (unknown) (unknown) (no date) (unknown) (unknown) thyroid studies are still pending. No significant findings to her CMP. No (units unknown) (unknown) (unknown) (no date) (unknown) (unknown) tramadol 50 mg table t 50 mg PO Q6H PRN pain #10 tabs 06/12/22 (units unknown) (unknown) (unknown) (no date) (unknown) (unknown) tramadol 50 mg tablet (units unknown) (unknown) (unknown) (no date) (unknown) (unknown) tremors, no tachycardia, her CIWA is currently 10, ordered another p.o. dose of (units unknown) (unknown) (unknown) (no date) (unknown) (unknown) urgency or flank pain, endorses nausea without vomiting. Patient has been to (units unknown) (unknown) (unknown) (no date) (unknown) (unknown) well as prior record s if available. (units unknown) (unknown) (unknown) (no date) (unknown) (unknown) wheezing, stridor, o r abnormal breath sounds. No retractions or tachypnea. (units unknown) (unknown) (unknown) (no date) (unknown) (unknown) withdrawal. Patient states that she takes Seroquel 300 mg at night as well as (units unknown) (unknown) Result panel [id number] (unknown) (no date) (unknown) (unknown) 0.93 ng/dl (unknown) (unknown) (no date) (unknown) (unknown) 1.24 uiu/ml (unknown) Result panel [id number] (unknown) (no date) (unknown) (unknown) (no value) (units unknown) (unknown) (unknown) (no date) (unknown) (unknown) <[email or web address] Do - Last Filed: 07/12/22 20:27> (units unknown) (unknown) (unknown) (no date) (unknown) (unknown) <Reinaldo Arthur DO - Last Filed: 07/13/22 05:26> (units unknown) (unknown) (unknown) (no date) (unknown) (unknown) (1-3) #30 tabs (units unknown) (unknown) (unknown) (no date) (unknown) (unknown) (Benadryl) caps (units unknown) (unknown) (unknown) (no date) (unknown) (unknown) (Colace) (units unknown) (unknown) (unknown) (no date) (unknown) (unknown) (Tylenol) (units unknown) (unknown) (unknown) (no date) (unknown) (unknown) [id number] (units unknown) (unknown) (unknown) (no date) (unknown) (unknown) 01:28 07/13/22 (units unknown) (unknown) (unknown) (no date) (unknown) (unknown) 01:50 (units unknown) (unknown) (unknown) (no date) (unknown) (unknown) 02:00 07/13/22 (units unknown) (unknown) (unknown) (no date) (unknown) (unknown) 02:14 07/13/22 (units unknown) (unknown) (unknown) (no date) (unknown) (unknown) 02:14 (units unknown) (unknown) (unknown) (no date) (unknown) (unknown) 02:30 (units unknown) (unknown) (unknown) (no date) (unknown) (unknown) 07/12/22 07/12/22 07/12/22 Range/Units (units unknown) (unknown) (unknown) (no date) (unknown) (unknown) 07/12/22 19:15 (units unknown) (unknown) (unknown) (no date) (unknown) (unknown) 07/12/22 (units unknown) (unknown) (unknown) (no date) (unknown) (unknown) 07/13/22 (units unknown) (unknown) (unknown) (no date) (unknown) (unknown) 0530 -patient beginning to feel a bit agitated and restless, she is tachycardic (units unknown) (unknown) (unknown) (no date) (unknown) (unknown) 1 tab PO DAILY (units unknown) (unknown) (unknown) (no date) (unknown) (unknown) 100 mg PO BID Qty: 3 0 0RF (units unknown) (unknown) (unknown) (no date) (unknown) (unknown) 16:32 16:32 16:32 (units unknown) (unknown) (unknown) (no date) (unknown) (unknown) 1835 patient still does not have an IV, has not received any IV fluid her (units unknown) (unknown) (unknown) (no date) (unknown) (unknown) 1899 still no IV, patient is p.o. challenging, she received her p.o. lorazepam, (units unknown) (unknown) (unknown) (no date) (unknown) (unknown) 1929, patient now feels depressed, she is lying in bed, feeling bad, has (units unknown) (unknown) (unknown) (no date) (unknown) (unknown) 19:15 19:15 19:15 (units unknown) (unknown) (unknown) (no date) (unknown) (unknown) 1999 patient is feeling better now, her lab work is starting to return and ETOH (units unknown) (unknown) (unknown) (no date) (unknown) (unknown) 2002 patient request s to take her home dosing of Seroquel 300 mg, this is (units unknown) (unknown) (unknown) (no date) (unknown) (unknown) 2022 with similar symptoms. She comes in complaining of needing help, states (units unknown) (unknown) (unknown) (no date) (unknown) (unknown) 2199 -smoker point called back and states that patient must have free CIWA (units unknown) (unknown) (unknown) (no date) (unknown) (unknown) 23:30 07/13/22 (units unknown) (unknown) (unknown) (no date) (unknown) (unknown) 25 mg PO BEDTIME PRN (Reason: insomnia) Qty: 20 0RF (units unknown) (unknown) (unknown) (no date) (unknown) (unknown) 325 mg PO Q6H PRN (Reason: pain) Qty: 20 0RF (units unknown) (unknown) (unknown) (no date) (unknown) (unknown) 4 Zofran was ordered . So has not been given, patient is signed out to (units unknown) (unknown) (unknown) (no date) (unknown) (unknown) 4 mg PO Q6H PRN (Reason: nausea and vomiting) Qty: 14 0RF (units unknown) (unknown) (unknown) (no date) (unknown) (unknown) 4 mg PO Q8H PRN (Reason: nausea and vomiting) Qty: 20 0RF (units unknown) (unknown) (unknown) (no date) (unknown) (unknown) 4 mg PO Q8H PRN (Reason: nausea and vomiting) Qty: 30 0RF (units unknown) (unknown) (unknown) (no date) (unknown) (unknown) 50 mg PO Q6H PRN (Reason: pain) Qty: 10 0RF (units unknown) (unknown) (unknown) (no date) (unknown) (unknown) 600 mg PO Q6HR PRN (Reason: Pain, Mild (1-3)) Qty: 30 0RF (units unknown) (unknown) (unknown) (no date) (unknown) (unknown) 750 mL of time. She just she has nothing to do but relapsed. This 3 weeks ago (units unknown) (unknown) (unknown) (no date) (unknown) (unknown) 9 points (units unknown) (unknown) (unknown) (no date) (unknown) (unknown) ALT (<35) IU/L (units unknown) (unknown) (unknown) (no date) (unknown) (unknown) ALT 21 (<35) IU/L (units unknown) (unknown) (unknown) (no date) (unknown) (unknown) AST (14-36) IU/L (units unknown) (unknown) (unknown) (no date) (unknown) (unknown) AST 67 H (14-36) IU/L (units unknown) (unknown) (unknown) (no date) (unknown) (unknown) Acetaminophen < 10 (10-30) ug/mL (units unknown) (unknown) (unknown) (no date) (unknown) (unknown) Acetaminophen (10-30 ) ug/mL (units unknown) (unknown) (unknown) (no date) (unknown) (unknown) Acute cystitis (units unknown) (unknown) (unknown) (no date) (unknown) (unknown) Admin: 07/12/22 19:4 7 Dose: 500 mg (units unknown) (unknown) (unknown) (no date) (unknown) (unknown) Age/Sex: 31 / F (units unknown) (unknown) (unknown) (no date) (unknown) (unknown) Agitation ?> 2 = (More severe symptoms) (units unknown) (unknown) (unknown) (no date) (unknown) (unknown) Albumin (3.5-5.0) g/dL (units unknown) (unknown) (unknown) (no date) (unknown) (unknown) Albumin 4.3 (3.5-5.0 ) g/dL (units unknown) (unknown) (unknown) (no date) (unknown) (unknown) Albumin/Globulin Ratio (1.0-2.8) (units unknown) (unknown) (unknown) (no date) (unknown) (unknown) Albumin/Globulin Ratio 1.4 (1.0-2.8) (units unknown) (unknown) (unknown) (no date) (unknown) (unknown) Alcohol use disorder (units unknown) (unknown) (unknown) (no date) (unknown) (unknown) Alcoholism (units unknown) (unknown) (unknown) (no date) (unknown) (unknown) Alkaline Phosphatase (38-126) U/L (units unknown) (unknown) (unknown) (no date) (unknown) (unknown) Alkaline Phosphatase 98 (38-126) U/L (units unknown) (unknown) (unknown) (no date) (unknown) (unknown) Allergies (units unknown) (unknown) (unknown) (no date) (unknown) (unknown) Allergy/AdvReac Type Severity Reaction Status Date / Time (units unknown) (unknown) (unknown) (no date) (unknown) (unknown) Anemia (-2018) (units unknown) (unknown) (unknown) (no date) (unknown) (unknown) Anxiety ?> 2 = (More severe symptoms) (units unknown) (unknown) (unknown) (no date) (unknown) (unknown) Auditory disturbance s ?> 1 = Very mild harshness or ability to frighten (units unknown) (unknown) (unknown) (no date) (unknown) (unknown) BUN (7-17) mg/dL (units unknown) (unknown) (unknown) (no date) (unknown) (unknown) BUN 9 (7-17) mg/dL (units unknown) (unknown) (unknown) (no date) (unknown) (unknown) BUN/Creatinine Ratio (6-22) (units unknown) (unknown) (unknown) (no date) (unknown) (unknown) BUN/Creatinine Ratio 11.0 (6-22) (units unknown) (unknown) (unknown) (no date) (unknown) (unknown) Baso # (Auto) (0-100 ) /uL (units unknown) (unknown) (unknown) (no date) (unknown) (unknown) Baso # (Auto) 0 (0-100) /uL (units unknown) (unknown) (unknown) (no date) (unknown) (unknown) Baso % (Auto) (0-2) % (units unknown) (unknown) (unknown) (no date) (unknown) (unknown) Baso % (Auto) 0.9 (0-2) % (units unknown) (unknown) (unknown) (no date) (unknown) (unknown) Bedside Urine Bilirubin - Negative (units unknown) (unknown) (unknown) (no date) (unknown) (unknown) Bedside Urine Glucos e Negative (units unknown) (unknown) (unknown) (no date) (unknown) (unknown) Bedside Urine Ketone - Negative (units unknown) (unknown) (unknown) (no date) (unknown) (unknown) Bedside Urine Leukocytes - Negative (units unknown) (unknown) (unknown) (no date) (unknown) (unknown) Bedside Urine Nitrit e + Positive (units unknown) (unknown) (unknown) (no date) (unknown) (unknown) Bedside Urine Occult Blood - Negative (units unknown) (unknown) (unknown) (no date) (unknown) (unknown) Bedside Urine Protei n - Negative (units unknown) (unknown) (unknown) (no date) (unknown) (unknown) Bedside Urine Urobilinogen - Negative (units unknown) (unknown) (unknown) (no date) (unknown) (unknown) Bedside Urine pH 6.0 (units unknown) (unknown) (unknown) (no date) (unknown) (unknown) Blood Pressure 102/5 9 L (units unknown) (unknown) (unknown) (no date) (unknown) (unknown) Blood Pressure 112/6 2 07/12/22 16:10 (units unknown) (unknown) (unknown) (no date) (unknown) (unknown) Blood Pressure 99/58 L (units unknown) (unknown) (unknown) (no date) (unknown) (unknown) Blood Pressure [Left Arm] 95/53 L (units unknown) (unknown) (unknown) (no date) (unknown) (unknown) Blood Pressure [Left Arm] (units unknown) (unknown) (unknown) (no date) (unknown) (unknown) Blood Pressure (units unknown) (unknown) (unknown) (no date) (unknown) (unknown) CIWA is now worse an d she has tremors, anxiety is worsening and agitation, (units unknown) (unknown) (unknown) (no date) (unknown) (unknown) CIWA-Ar for Alcohol Withdrawal from [email or web address] on 07/12/2022 (units unknown) (unknown) (unknown) (no date) (unknown) (unknown) Calcium (8.4-10.2) mg/dL (units unknown) (unknown) (unknown) (no date) (unknown) (unknown) Calcium 8.0 L (8.4-10.2) mg/dL (units unknown) (unknown) (unknown) (no date) (unknown) (unknown) Carbon Dioxide (22-32) mmol/L (units unknown) (unknown) (unknown) (no date) (unknown) (unknown) Carbon Dioxide 23 (22-32) mmol/L (units unknown) (unknown) (unknown) (no date) (unknown) (unknown) Cardiovascular: Tachycardic rate and rhythm, no peripheral edema, warm (units unknown) (unknown) (unknown) (no date) (unknown) (unknown) Cephalexin HCl (Cephalexin 250 Mg Capsule) 500 mg PO Q6H SANDY (units unknown) (unknown) (unknown) (no date) (unknown) (unknown) Chief Complaint: Alcohol intoxication, seeking detox (units unknown) (unknown) (unknown) (no date) (unknown) (unknown) Chief Complaint: Toxicology Problem (units unknown) (unknown) (unknown) (no date) (unknown) (unknown) Chloride (98-107) mmol/L (units unknown) (unknown) (unknown) (no date) (unknown) (unknown) Chloride 104 (98-107 ) mmol/L (units unknown) (unknown) (unknown) (no date) (unknown) (unknown) Clinical Impression: (units unknown) (unknown) (unknown) (no date) (unknown) (unknown) Clinical decision rules or scores evaluated: CIWA of 9 at 1753 (units unknown) (unknown) (unknown) (no date) (unknown) (unknown) Course of care: Patient is a difficult IV stick, ordered IV with lab work, (units unknown) (unknown) (unknown) (no date) (unknown) (unknown) Course (units unknown) (unknown) (unknown) (no date) (unknown) (unknown) Creatinine (0.52-1.04) mg/dL (units unknown) (unknown) (unknown) (no date) (unknown) (unknown) Creatinine 0.82 (0.52-1.04) mg/dL (units unknown) (unknown) (unknown) (no date) (unknown) (unknown) Samantha Arthur gave her grilled cheese, soup, some juice and encouraged her to stay (units unknown) (unknown) (unknown) (no date) (unknown) (unknown) : 1990 Acct:[id number] (units unknown) (unknown) (unknown) (no date) (unknown) (unknown) Date of Service: 07/12/22 (units unknown) (unknown) (unknown) (no date) (unknown) (unknown) Departure (units unknown) (unknown) (unknown) (no date) (unknown) (unknown) Differential diagnoses include but are not limited to: Alcohol withdrawal, (units unknown) (unknown) (unknown) (no date) (unknown) (unknown) Discharge Plan (units unknown) (unknown) (unknown) (no date) (unknown) (unknown) Discontinued Medications (units unknown) (unknown) (unknown) (no date) (unknown) (unknown) Documented By: AP (units unknown) (unknown) (unknown) (no date) (unknown) (unknown) Documented By: KB (units unknown) (unknown) (unknown) (no date) (unknown) (unknown) Documented By: OW (units unknown) (unknown) (unknown) (no date) (unknown) (unknown) ECG Data (units unknown) (unknown) (unknown) (no date) (unknown) (unknown) EKG independently reviewed by myself at 1830 reveals normal sinus rhythm at 72 (units unknown) (unknown) (unknown) (no date) (unknown) (unknown) ER Physician: Reinaldo Arthur D.O. (units unknown) (unknown) (unknown) (no date) (unknown) (unknown) Emergency Report (units unknown) (unknown) (unknown) (no date) (unknown) (unknown) Eos # (Auto) (0-450) /uL (units unknown) (unknown) (unknown) (no date) (unknown) (unknown) Eos # (Auto) 0 (0-450) /uL (units unknown) (unknown) (unknown) (no date) (unknown) (unknown) Eos % (Auto) (2-4) % (units unknown) (unknown) (unknown) (no date) (unknown) (unknown) Eos % (Auto) 0.3 L (2-4) % (units unknown) (unknown) (unknown) (no date) (unknown) (unknown) Esterase (units unknown) (unknown) (unknown) (no date) (unknown) (unknown) Estimated GFR > 60 (>60) mL/min (units unknown) (unknown) (unknown) (no date) (unknown) (unknown) Estimated GFR (>60) mL/min (units unknown) (unknown) (unknown) (no date) (unknown) (unknown) Ethyl Alcohol ( - 10 ) mg/dL (units unknown) (unknown) (unknown) (no date) (unknown) (unknown) Ethyl Alcohol 338 H ( - 10) mg/dL (units unknown) (unknown) (unknown) (no date) (unknown) (unknown) Exam Narrative: (units unknown) (unknown) (unknown) (no date) (unknown) (unknown) Exam (units unknown) (unknown) (unknown) (no date) (unknown) (unknown) Family History (units unknown) (unknown) (unknown) (no date) (unknown) (unknown) Family/Other Alcoholism (units unknown) (unknown) (unknown) (no date) (unknown) (unknown) Family/Other Diabete s mellitus (units unknown) (unknown) (unknown) (no date) (unknown) (unknown) Father Alcoholism (units unknown) (unknown) (unknown) (no date) (unknown) (unknown) Tonia Schneider MD [Primary Care Provider] (units unknown) (unknown) (unknown) (no date) (unknown) (unknown) Folic Acid (Folic Acid 1 Mg Tablet) 1 mg PO DAILY SANDY (units unknown) (unknown) (unknown) (no date) (unknown) (unknown) Free T4 (0.78-2.19) ng/dL (units unknown) (unknown) (unknown) (no date) (unknown) (unknown) Free T4 0.93 (0.78-2.19) ng/dL (units unknown) (unknown) (unknown) (no date) (unknown) (unknown) GI: abdomen soft, nontender to palpation, nondistended, without masses, rebound (units unknown) (unknown) (unknown) (no date) (unknown) (unknown) General (units unknown) (unknown) (unknown) (no date) (unknown) (unknown) General: cooperative , comfortable, in no acute distress, well groomed, appears (units unknown) (unknown) (unknown) (no date) (unknown) (unknown) Globulin (1.7-4.1) g/dL (units unknown) (unknown) (unknown) (no date) (unknown) (unknown) Globulin 3.0 (1.7-4.1) g/dL (units unknown) (unknown) (unknown) (no date) (unknown) (unknown) Glucose (70-100) mg/dL (units unknown) (unknown) (unknown) (no date) (unknown) (unknown) Glucose 111 H (70-100) mg/dL (units unknown) (unknown) (unknown) (no date) (unknown) (unknown) Grandfather Smoker (units unknown) (unknown) (unknown) (no date) (unknown) (unknown) Grandfather Unknown whether patient has any health problems (units unknown) (unknown) (unknown) (no date) (unknown) (unknown) Grandmother Diabetes mellitus (units unknown) (unknown) (unknown) (no date) (unknown) (unknown) Grandmother Hypoglycemia (units unknown) (unknown) (unknown) (no date) (unknown) (unknown) H/O dilation and curettage (-12/14/16) (units unknown) (unknown) (unknown) (no date) (unknown) (unknown) H/O wisdom tooth extraction () (units unknown) (unknown) (unknown) (no date) (unknown) (unknown) HEENT: symmetrical facial expressions, dry mucous membranes (units unknown) (unknown) (unknown) (no date) (unknown) (unknown) HPI - Alcohol (units unknown) (unknown) (unknown) (no date) (unknown) (unknown) HPI narrative: (units unknown) (unknown) (unknown) (no date) (unknown) (unknown) Hct (36-46) % (units unknown) (unknown) (unknown) (no date) (unknown) (unknown) Hct 35.3 L (36-46) % (units unknown) (unknown) (unknown) (no date) (unknown) (unknown) Headache/fullness in head ?> 1 = Very mild (units unknown) (unknown) (unknown) (no date) (unknown) (unknown) Hematuria presence: without hematuria Qualified Code(s): N30.00 - Acute (units unknown) (unknown) (unknown) (no date) (unknown) (unknown) Hgb (12.0-16.0) g/dL (units unknown) (unknown) (unknown) (no date) (unknown) (unknown) Hgb 11.5 L (12.0-16.0) g/dL (units unknown) (unknown) (unknown) (no date) (unknown) (unknown) History of Present Illness (units unknown) (unknown) (unknown) (no date) (unknown) (unknown) Home Medications (units unknown) (unknown) (unknown) (no date) (unknown) (unknown) I have independently reviewed the patient's vital signs and nursing notes as (units unknown) (unknown) (unknown) (no date) (unknown) (unknown) INPUTS: (units unknown) (unknown) (unknown) (no date) (unknown) (unknown) Independent historian: Patient (units unknown) (unknown) (unknown) (no date) (unknown) (unknown) Initial Vital Signs (units unknown) (unknown) (unknown) (no date) (unknown) (unknown) Initial Vital Signs: (units unknown) (unknown) (unknown) (no date) (unknown) (unknown) Insomnia (units unknown) (unknown) (unknown) (no date) (unknown) (unknown) Interpretation: (units unknown) (unknown) (unknown) (no date) (unknown) (unknown) [address] [address] (units unknown) (unknown) (unknown) (no date) (unknown) (unknown) Lab Data (units unknown) (unknown) (unknown) (no date) (unknown) (unknown) Lab Results (units unknown) (unknown) (unknown) (no date) (unknown) (unknown) Labs: (units unknown) (unknown) (unknown) (no date) (unknown) (unknown) Last Admin: 07/12/22 18:39 Dose: 4 mg (units unknown) (unknown) (unknown) (no date) (unknown) (unknown) Last Admin: 07/12/22 18:40 Dose: 1 mg (units unknown) (unknown) (unknown) (no date) (unknown) (unknown) Last Admin: 07/12/22 18:56 Dose: Not Given (units unknown) (unknown) (unknown) (no date) (unknown) (unknown) Last Admin: 07/12/22 19:48 Dose: 2 mg (units unknown) (unknown) (unknown) (no date) (unknown) (unknown) Last Admin: 07/12/22 19:49 Dose: 100 mg (units unknown) (unknown) (unknown) (no date) (unknown) (unknown) Last Admin: 07/13/22 02:11 Dose: 500 mg (units unknown) (unknown) (unknown) (no date) (unknown) (unknown) Last Admin: 07/13/22 03:36 Dose: 2 mg (units unknown) (unknown) (unknown) (no date) (unknown) (unknown) Librium but she does not have this medicine with her, she only has the Seroquel. (units unknown) (unknown) (unknown) (no date) (unknown) (unknown) Lorazepam (Lorazepam 0.5 Mg Tablet) 1 mg PO NOW ONE (units unknown) (unknown) (unknown) (no date) (unknown) (unknown) Lorazepam (Lorazepam 0.5 Mg Tablet) 2 mg PO NOW ONE (units unknown) (unknown) (unknown) (no date) (unknown) (unknown) Lorazepam (Lorazepam 2 Mg/Ml Inj) 2 mg IV NOW ONE (units unknown) (unknown) (unknown) (no date) (unknown) (unknown) Lymph # (Auto) ([id number]) /uL (units unknown) (unknown) (unknown) (no date) (unknown) (unknown) Lymph # (Auto) 1700 (9044-8912) /uL (units unknown) (unknown) (unknown) (no date) (unknown) (unknown) Lymph % (Auto) (25-40) % (units unknown) (unknown) (unknown) (no date) (unknown) (unknown) Lymph % (Auto) 50.6 H (25-40) % (units unknown) (unknown) (unknown) (no date) (unknown) (unknown) MCH (26-34) PG (units unknown) (unknown) (unknown) (no date) (unknown) (unknown) MCH 26.0 (26-34) PG (units unknown) (unknown) (unknown) (no date) (unknown) (unknown) MCHC (30-36) % (units unknown) (unknown) (unknown) (no date) (unknown) (unknown) MCHC 32.7 (30-36) % (units unknown) (unknown) (unknown) (no date) (unknown) (unknown) MCV (80-100) fL (units unknown) (unknown) (unknown) (no date) (unknown) (unknown) MCV 79.5 L (80-100) fL (units unknown) (unknown) (unknown) (no date) (unknown) (unknown) MDM - Alcohol (units unknown) (unknown) (unknown) (no date) (unknown) (unknown) MDM Narrative (units unknown) (unknown) (unknown) (no date) (unknown) (unknown) MIPS: This encounter doesn't have any diagnosis' associated with MIPS criteria. (units unknown) (unknown) (unknown) (no date) (unknown) (unknown) MSK: moves all extremities, neurovascularly intact, no weakness, normal tone no (units unknown) (unknown) (unknown) (no date) (unknown) (unknown) Medical History (units unknown) (unknown) (unknown) (no date) (unknown) (unknown) Medical decision making narrative: (units unknown) (unknown) (unknown) (no date) (unknown) (unknown) Medication Instructions Recorded Confirmed (units unknown) (unknown) (unknown) (no date) (unknown) (unknown) Medication Instructions Recorded (units unknown) (unknown) (unknown) (no date) (unknown) (unknown) Menometrorrhagia (units unknown) (unknown) (unknown) (no date) (unknown) (unknown) Mode of arrival: Ambulatory (units unknown) (unknown) (unknown) (no date) (unknown) (unknown) [place] # (Auto) (0-900 ) /uL (units unknown) (unknown) (unknown) (no date) (unknown) (unknown) [place] # (Auto) 100 (0-900) /uL (units unknown) (unknown) (unknown) (no date) (unknown) (unknown) [place] % (Auto) (3-14) % (units unknown) (unknown) (unknown) (no date) (unknown) (unknown) [place] % (Auto) 2.7 L (3-14) % (units unknown) (unknown) (unknown) (no date) (unknown) (unknown) Mother Diabetes mellitus (units unknown) (unknown) (unknown) (no date) (unknown) (unknown) Narrative (units unknown) (unknown) (unknown) (no date) (unknown) (unknown) Nausea/vomiting ?> 0 = No nausea and no vomiting (units unknown) (unknown) (unknown) (no date) (unknown) (unknown) Neuro: normal speech and cognition, A+O x3, ambulatory, clear speech (units unknown) (unknown) (unknown) (no date) (unknown) (unknown) Neut # (Auto) (9202-6804) /uL (units unknown) (unknown) (unknown) (no date) (unknown) (unknown) Neut # (Auto) 1500 (0299-7876) /uL (units unknown) (unknown) (unknown) (no date) (unknown) (unknown) Neut % (Auto) (50-75 ) % (units unknown) (unknown) (unknown) (no date) (unknown) (unknown) Neut % (Auto) 45.5 L (50-75) % (units unknown) (unknown) (unknown) (no date) (unknown) (unknown) No Action (units unknown) (unknown) (unknown) (no date) (unknown) (unknown) Obesity (units unknown) (unknown) (unknown) (no date) (unknown) (unknown) Ondansetron HCl (Ondansetron 4 Mg Odt) 4 mg SL NOW ONE (units unknown) (unknown) (unknown) (no date) (unknown) (unknown) Ondansetron HCl (Ondansetron 4 Mg/2 Ml Inj) 4 mg IV Q6HR PRN (units unknown) (unknown) (unknown) (no date) (unknown) (unknown) Ordered: (units unknown) (unknown) (unknown) (no date) (unknown) (unknown) Orders (units unknown) (unknown) (unknown) (no date) (unknown) (unknown) Orientation/clouding of sensorium ?> 0 = Oriented, can do serial additions (units unknown) (unknown) (unknown) (no date) (unknown) (unknown) Over the course of the night we have called various other facilities and they (units unknown) (unknown) (unknown) (no date) (unknown) (unknown) Overweight (units unknown) (unknown) (unknown) (no date) (unknown) (unknown) Oxygen Delivery Method Room Air 07/12/22 16:10 (units unknown) (unknown) (unknown) (no date) (unknown) (unknown) Oxygen Delivery Method Room Air Room Air (units unknown) (unknown) (unknown) (no date) (unknown) (unknown) Oxygen Delivery Method (units unknown) (unknown) (unknown) (no date) (unknown) (unknown) PRN Reason: Nausea And Vomiting (units unknown) (unknown) (unknown) (no date) (unknown) (unknown) Paroxysmal sweats ?> 0 = No sweat visible (units unknown) (unknown) (unknown) (no date) (unknown) (unknown) Patient [facility]: [facility] (units unknown) (unknown) (unknown) (no date) (unknown) (unknown) Patient History (units unknown) (unknown) (unknown) (no date) (unknown) (unknown) Patient has allergy to Reglan and hydrocodone. She denies urinary frequency, (units unknown) (unknown) (unknown) (no date) (unknown) (unknown) Patient's CIWA at 2019 is 12, I ordered for her 2 more mg of lorazepam p.o., (units unknown) (unknown) (unknown) (no date) (unknown) (unknown) Patient: Sarah Connors MR#: M (units unknown) (unknown) (unknown) (no date) (unknown) (unknown) Patients with scores >= may require medication for withdrawal. (units unknown) (unknown) (unknown) (no date) (unknown) (unknown) Pertinent lab findings reviewed: CBC is pertinent for mild leukopenia of 3.3, (units unknown) (unknown) (unknown) (no date) (unknown) (unknown) Plt Count (150-400) X103/uL (units unknown) (unknown) (unknown) (no date) (unknown) (unknown) Plt Count 226 (150-400) X103/uL (units unknown) (unknown) (unknown) (no date) (unknown) (unknown) Point of Care Testing (units unknown) (unknown) (unknown) (no date) (unknown) (unknown) Potassium (3.4-5.1) mmol/L (units unknown) (unknown) (unknown) (no date) (unknown) (unknown) Potassium 3.9 (3.4-5.1) mmol/L (units unknown) (unknown) (unknown) (no date) (unknown) (unknown) Test Results Negative (units unknown) (unknown) (unknown) (no date) (unknown) (unknown) Prescriptions: (units unknown) (unknown) (unknown) (no date) (unknown) (unknown) Previous Rx's (units unknown) (unknown) (unknown) (no date) (unknown) (unknown) Psych: mental status is intact, patient has a normal affect although she is (units unknown) (unknown) (unknown) (no date) (unknown) (unknown) Pulse Oximetry 97 100 (units unknown) (unknown) (unknown) (no date) (unknown) (unknown) Pulse Oximetry 98 97 96 (units unknown) (unknown) (unknown) (no date) (unknown) (unknown) Pulse Oximetry 99 07/12/22 16:10 (units unknown) (unknown) (unknown) (no date) (unknown) (unknown) Pulse Oximetry 99 (units unknown) (unknown) (unknown) (no date) (unknown) (unknown) Pulse Rate 82 07/12/22 16:10 (units unknown) (unknown) (unknown) (no date) (unknown) (unknown) Pulse Rate 90 (units unknown) (unknown) (unknown) (no date) (unknown) (unknown) Pulse Rate 94 H 92 H 88 (units unknown) (unknown) (unknown) (no date) (unknown) (unknown) Pulse Rate 97 H 87 (units unknown) (unknown) (unknown) (no date) (unknown) (unknown) Qualifiers: (units unknown) (unknown) (unknown) (no date) (unknown) (unknown) Questions are addressed and there is agreement with the plan and for follow-up. (units unknown) (unknown) (unknown) (no date) (unknown) (unknown) RBC (4.0-5.2) X106/uL (units unknown) (unknown) (unknown) (no date) (unknown) (unknown) RBC 4.44 (4.0-5.2) X106/uL (units unknown) (unknown) (unknown) (no date) (unknown) (unknown) RDW (11.6-14.8) % (units unknown) (unknown) (unknown) (no date) (unknown) (unknown) RDW 17.3 H (11.6-14.8) % (units unknown) (unknown) (unknown) (no date) (unknown) (unknown) RESULT SUMMARY: (units unknown) (unknown) (unknown) (no date) (unknown) (unknown) ROS Unobtainable: Al l systems reviewed + are unremarkable except as noted in HPI (units unknown) (unknown) (unknown) (no date) (unknown) (unknown) Referrals: (units unknown) (unknown) (unknown) (no date) (unknown) (unknown) Related Data (units unknown) (unknown) (unknown) (no date) (unknown) (unknown) Respiratory Rate 14 07/12/22 16:10 (units unknown) (unknown) (unknown) (no date) (unknown) (unknown) Respiratory Rate 16 18 (units unknown) (unknown) (unknown) (no date) (unknown) (unknown) Respiratory Rate (units unknown) (unknown) (unknown) (no date) (unknown) (unknown) Respiratory: normal effort, able to speak in complete sentences, without (units unknown) (unknown) (unknown) (no date) (unknown) (unknown) Review of Systems (units unknown) (unknown) (unknown) (no date) (unknown) (unknown) Reviewed vitals sign s and nursing notes. (units unknown) (unknown) (unknown) (no date) (unknown) (unknown) S/P myringotomy with insertion of tube (units unknown) (unknown) (unknown) (no date) (unknown) (unknown) SARS-CoV-2 (PCR) (Negative) (units unknown) (unknown) (unknown) (no date) (unknown) (unknown) SARS-CoV-2 (PCR) Negative (Negative) (units unknown) (unknown) (unknown) (no date) (unknown) (unknown) (spontaneous vaginal delivery) (-09/05/18) (units unknown) (unknown) (unknown) (no date) (unknown) (unknown) Salicylates < 1.0 (<20) mg/dL (units unknown) (unknown) (unknown) (no date) (unknown) (unknown) Salicylates (<20) mg/dL (units unknown) (unknown) (unknown) (no date) (unknown) (unknown) She was given a couple water, a diet order was ordered however they may not (units unknown) (unknown) (unknown) (no date) (unknown) (unknown) Signed By: (units unknown) (unknown) (unknown) (no date) (unknown) (unknown) Skin: brisk capillar y refill, without pallor or erythema (units unknown) (unknown) (unknown) (no date) (unknown) (unknown) Smoker (units unknown) (unknown) (unknown) (no date) (unknown) (unknown) [place] in the past. She has been sober for a total of 18 (units unknown) (unknown) (unknown) (no date) (unknown) (unknown) Smoking Status: Former smoker (units unknown) (unknown) (unknown) (no date) (unknown) (unknown) Social History (units unknown) (unknown) (unknown) (no date) (unknown) (unknown) Social consideration s that may affect disposition: none (units unknown) (unknown) (unknown) (no date) (unknown) (unknown) Sodium (137-145) mmol/L (units unknown) (unknown) (unknown) (no date) (unknown) (unknown) Sodium 140 (137-145) mmol/L (units unknown) (unknown) (unknown) (no date) (unknown) (unknown) Sodium Chloride (Normal Saline 0.9%) 1,000 mls @ 1,000 mls/hr IV BOLUS ONE (units unknown) (unknown) (unknown) (no date) (unknown) (unknown) Source: patient (units unknown) (unknown) (unknown) (no date) (unknown) (unknown) Stated Complaint: Stress/Depression (units unknown) (unknown) (unknown) (no date) (unknown) (unknown) Stop: 07/12/22 17:33 (units unknown) (unknown) (unknown) (no date) (unknown) (unknown) Stop: 07/12/22 17:45 (units unknown) (unknown) (unknown) (no date) (unknown) (unknown) Stop: 07/12/22 18:28 (units unknown) (unknown) (unknown) (no date) (unknown) (unknown) Stop: 07/12/22 18:31 (units unknown) (unknown) (unknown) (no date) (unknown) (unknown) Stop: 07/12/22 19:25 (units unknown) (unknown) (unknown) (no date) (unknown) (unknown) Stop: 07/12/22 20:03 (units unknown) (unknown) (unknown) (no date) (unknown) (unknown) Stop: 07/12/22 20:17 (units unknown) (unknown) (unknown) (no date) (unknown) (unknown) Substance Use Type: does not use (units unknown) (unknown) (unknown) (no date) (unknown) (unknown) Surgical History (units unknown) (unknown) (unknown) (no date) (unknown) (unknown) TSH (0.47-4.68) uIU/mL (units unknown) (unknown) (unknown) (no date) (unknown) (unknown) TSH 1.24 (0.47-4.68) uIU/mL (units unknown) (unknown) (unknown) (no date) (unknown) (unknown) Tactile disturbances ?> 1 = Very mild itching, pin and needles, burning, or (units unknown) (unknown) (unknown) (no date) (unknown) (unknown) Temperature 97.2 F L 07/12/22 16:10 (units unknown) (unknown) (unknown) (no date) (unknown) (unknown) Thiamine HCl (Thiamine 100 Mg Tablet) 100 mg PO NOW ONE (units unknown) (unknown) (unknown) (no date) (unknown) (unknown) Thiamine HCl 200 mg/ Sodium (Chloride) 102 mls @ 408 mls/hr IV NOW ONE (units unknown) (unknown) (unknown) (no date) (unknown) (unknown) This is a 31-year-ol d female with history of alcohol abuse and appears to have (units unknown) (unknown) (unknown) (no date) (unknown) (unknown) Time Seen by Provider: 07/12/22 17:05 (units unknown) (unknown) (unknown) (no date) (unknown) (unknown) Total Bilirubin (0.2-1.3) mg/dL (units unknown) (unknown) (unknown) (no date) (unknown) (unknown) Total Bilirubin 0.4 (0.2-1.3) mg/dL (units unknown) (unknown) (unknown) (no date) (unknown) (unknown) Total Protein (6.3-8.2) g/dL (units unknown) (unknown) (unknown) (no date) (unknown) (unknown) Total Protein 7.3 (6.3-8.2) g/dL (units unknown) (unknown) (unknown) (no date) (unknown) (unknown) Tremor ?> 1 = Not visible, but can be felt fingertip to fingertip (units unknown) (unknown) (unknown) (no date) (unknown) (unknown) U Benzodiazepines Scrn (Negative) (units unknown) (unknown) (unknown) (no date) (unknown) (unknown) U Benzodiazepines Scrn Negative (Negative) (units unknown) (unknown) (unknown) (no date) (unknown) (unknown) U Marijuana (THC) Screen (Negative) (units unknown) (unknown) (unknown) (no date) (unknown) (unknown) U Marijuana (THC) Screen Negative (Negative) (units unknown) (unknown) (unknown) (no date) (unknown) (unknown) U Methamphetamines Scrn (Negative) (units unknown) (unknown) (unknown) (no date) (unknown) (unknown) U Methamphetamines Scrn Negative (Negative) (units unknown) (unknown) (unknown) (no date) (unknown) (unknown) U Opiates 300ng/mL cut (Negative) (units unknown) (unknown) (unknown) (no date) (unknown) (unknown) U Opiates 300ng/mL cut Negative (Negative) (units unknown) (unknown) (unknown) (no date) (unknown) (unknown) U Tricyclic Antidepress (Negative) (units unknown) (unknown) (unknown) (no date) (unknown) (unknown) U Tricyclic Antidepress Negative (Negative) (units unknown) (unknown) (unknown) (no date) (unknown) (unknown) Ur Amphetamines Screen (Negative) (units unknown) (unknown) (unknown) (no date) (unknown) (unknown) Ur Amphetamines Screen Negative (Negative) (units unknown) (unknown) (unknown) (no date) (unknown) (unknown) Ur Barbiturates Screen (Negative) (units unknown) (unknown) (unknown) (no date) (unknown) (unknown) Ur Barbiturates Screen Negative (Negative) (units unknown) (unknown) (unknown) (no date) (unknown) (unknown) Ur Culture Indicated ? Specimen cultured (units unknown) (unknown) (unknown) (no date) (unknown) (unknown) Ur Culture Indicated? (units unknown) (unknown) (unknown) (no date) (unknown) (unknown) Ur MDMA Scrn (Ecstasy) (Negative) (units unknown) (unknown) (unknown) (no date) (unknown) (unknown) Ur MDMA Scrn (Ecstasy) Negative (Negative) (units unknown) (unknown) (unknown) (no date) (unknown) (unknown) Ur Oxycodone Screen (Negative) (units unknown) (unknown) (unknown) (no date) (unknown) (unknown) Ur Oxycodone Screen Negative (Negative) (units unknown) (unknown) (unknown) (no date) (unknown) (unknown) Ur Phencyclidine Scr n (Negative) (units unknown) (unknown) (unknown) (no date) (unknown) (unknown) Ur Phencyclidine Scr n Negative (Negative) (units unknown) (unknown) (unknown) (no date) (unknown) (unknown) Ur Squamous Epith Cells (0-5/HPF) (units unknown) (unknown) (unknown) (no date) (unknown) (unknown) Ur Squamous Epith Cells 1-5 /hpf (0-5/HPF) (units unknown) (unknown) (unknown) (no date) (unknown) (unknown) Urine Bacteria (None) (units unknown) (unknown) (unknown) (no date) (unknown) (unknown) Urine Bacteria Many (>30) H (None) (units unknown) (unknown) (unknown) (no date) (unknown) (unknown) Urine Cocaine Screen (Negative) (units unknown) (unknown) (unknown) (no date) (unknown) (unknown) Urine Cocaine Screen Negative (Negative) (units unknown) (unknown) (unknown) (no date) (unknown) (unknown) Urine Dip (units unknown) (unknown) (unknown) (no date) (unknown) (unknown) Urine Methadone Screen (Negative) (units unknown) (unknown) (unknown) (no date) (unknown) (unknown) Urine Methadone Screen Negative (Negative) (units unknown) (unknown) (unknown) (no date) (unknown) (unknown) Urine RBC (0-5/HPF) (units unknown) (unknown) (unknown) (no date) (unknown) (unknown) Urine RBC 1-5/hpf (0-5/HPF) (units unknown) (unknown) (unknown) (no date) (unknown) (unknown) Urine Specific [place] 1.015 (units unknown) (unknown) (unknown) (no date) (unknown) (unknown) Urine WBC (0-5/HPF) (units unknown) (unknown) (unknown) (no date) (unknown) (unknown) Urine WBC 1-5/hpf (0-5/HPF) (units unknown) (unknown) (unknown) (no date) (unknown) (unknown) Urine microscopy wit h many bacteria, pending for culture, will treat for acute (units unknown) (unknown) (unknown) (no date) (unknown) (unknown) Visual disturbances ?> 1 = Very mild sensitivity (units unknown) (unknown) (unknown) (no date) (unknown) (unknown) Vital Signs - 8 hr (units unknown) (unknown) (unknown) (no date) (unknown) (unknown) Vital Signs (units unknown) (unknown) (unknown) (no date) (unknown) (unknown) Vital signs: (units unknown) (unknown) (unknown) (no date) (unknown) (unknown) WBC (4.5-11.0) X103/uL (units unknown) (unknown) (unknown) (no date) (unknown) (unknown) WBC 3.3 L (4.5-11.0) X103/uL (units unknown) (unknown) (unknown) (no date) (unknown) (unknown) [1900] ([place]) Patient received in sign out [facility] [employer]. I have reviewed the (units unknown) (unknown) (unknown) (no date) (unknown) (unknown) [Embedded Image Not Available] (units unknown) (unknown) (unknown) (no date) (unknown) (unknown) [METOCLOPRAMIDE] (units unknown) (unknown) (unknown) (no date) (unknown) (unknown) acceptable. She is nauseated, without vomiting, received Zofran previously and (units unknown) (unknown) (unknown) (no date) (unknown) (unknown) acetaminophen 325 mg tablet 325 mg PO Q6H PRN pain #20 tabs 02/05/20 (units unknown) (unknown) (unknown) (no date) (unknown) (unknown) acetaminophen [Tylenol] 325 mg tablet (units unknown) (unknown) (unknown) (no date) (unknown) (unknown) alcohol in 300s, she was last here in the emergency department in May of (units unknown) (unknown) (unknown) (no date) (unknown) (unknown) alcohol intake frequency: 3 or more drinks per day (units unknown) (unknown) (unknown) (no date) (unknown) (unknown) alcohol intake: former (units unknown) (unknown) (unknown) (no date) (unknown) (unknown) alcohol level below 0.08 to be considered for placement there. (units unknown) (unknown) (unknown) (no date) (unknown) (unknown) and below (units unknown) (unknown) (unknown) (no date) (unknown) (unknown) and she drinking daily since this happened. She wants rehab. She has been (units unknown) (unknown) (unknown) (no date) (unknown) (unknown) anxious, intoxicated and now withdrawing. pleasant and cooperative (units unknown) (unknown) (unknown) (no date) (unknown) (unknown) are currently no available beds. Patient resting comfortably (units unknown) (unknown) (unknown) (no date) (unknown) (unknown) arrhythmia, or acute ischemic changes. (units unknown) (unknown) (unknown) (no date) (unknown) (unknown) at extension and states that she feels symptoms of alcohol withdrawal. Denies (units unknown) (unknown) (unknown) (no date) (unknown) (unknown) being depressed at this time, CIWA is an 8. (units unknown) (unknown) (unknown) (no date) (unknown) (unknown) bpm with rightward axis and normal intervals. No STEMI, ST segment changes, (units unknown) (unknown) (unknown) (no date) (unknown) (unknown) clinical course and performed an independent history and physical exam. Patient (units unknown) (unknown) (unknown) (no date) (unknown) (unknown) current occupational exposures/hazards: Yes (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 with Pandemic ) (units unknown) (unknown) (unknown) (no date) (unknown) (unknown) cystitis without hematuria (units unknown) (unknown) (unknown) (no date) (unknown) (unknown) cystitis (units unknown) (unknown) (unknown) (no date) (unknown) (unknown) cystitis, she is p.o . tolerant, still pending lab work (units unknown) (unknown) (unknown) (no date) (unknown) (unknown) deliver since it is after 17:00 and the diet order was ordered at 17:30. Samira (units unknown) (unknown) (unknown) (no date) (unknown) (unknown) detox 11 times, states that it has taking Antabuse, Librium, Ativan, she denies (units unknown) (unknown) (unknown) (no date) (unknown) (unknown) detox as well. (units unknown) (unknown) (unknown) (no date) (unknown) (unknown) diarrhea or current stool changes. (units unknown) (unknown) (unknown) (no date) (unknown) (unknown) diphenhydramine HCl 25 mg capsule 25 mg PO BEDTIME PRN insomnia #20 02/05/20 (units unknown) (unknown) (unknown) (no date) (unknown) (unknown) diphenhydramine HCl [Benadryl] 25 mg capsule (units unknown) (unknown) (unknown) (no date) (unknown) (unknown) docusate sodium 100 mg capsule 100 mg PO BID #30 caps 02/05/20 (units unknown) (unknown) (unknown) (no date) (unknown) (unknown) docusate sodium [Colace] 100 mg capsule (units unknown) (unknown) (unknown) (no date) (unknown) (unknown) draw her labs (units unknown) (unknown) (unknown) (no date) (unknown) (unknown) education level: college (units unknown) (unknown) (unknown) (no date) (unknown) (unknown) electrolyte abnormalities. 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[employer] (units unknown) (unknown) (unknown) (no date) (unknown) (unknown) fidgeting (units unknown) (unknown) (unknown) (no date) (unknown) (unknown) fluid, EtOH, and CIWA, ordered 2 mg of IV lorazepam for patient's symptoms, (units unknown) (unknown) (unknown) (no date) (unknown) (unknown) for alcohol related complaints through 2019, and she presented to the [facility] (units unknown) (unknown) (unknown) (no date) (unknown) (unknown) from social work is aware and pending her lab work to arrange for inpatient (units unknown) (unknown) (unknown) (no date) (unknown) (unknown) go to detox. She is currently intoxicated endorses symptoms of alcohol (units unknown) (unknown) (unknown) (no date) (unknown) (unknown) her urine microscopy came back positive for many bacteria, will treat for acute (units unknown) (unknown) (unknown) (no date) (unknown) (unknown) household members: spouse and children (units unknown) (unknown) (unknown) (no date) (unknown) (unknown) hydrated. (units unknown) (unknown) (unknown) (no date) (unknown) (unknown) hydrocodone [HYDROCODONE] AdvReac Unknown VOMITING Verified 07/12/22 16:18 (units unknown) (unknown) (unknown) (no date) (unknown) (unknown) ibuprofen 600 mg Tablet (units unknown) (unknown) (unknown) (no date) (unknown) (unknown) ibuprofen 600 mg tablet 600 mg PO Q6HR PRN Pain, Mild 07/04/20 (units unknown) (unknown) (unknown) (no date) (unknown) (unknown) intoxicated, pleasant, interactive and comfortable although active, anxious and (units unknown) (unknown) (unknown) (no date) (unknown) (unknown) is 338, COVID PCR wa s negative, drug screen is negative for all tested agents, (units unknown) (unknown) (unknown) (no date) (unknown) (unknown) is allergic to Reglan, will dose with another 5 mg of Zofran, no QT prolongation (units unknown) (unknown) (unknown) (no date) (unknown) (unknown) knowing if she is cox d phenobarbital in the past. (units unknown) (unknown) (unknown) (no date) (unknown) (unknown) limited history currently due to intoxication. She states that she is recently (units unknown) (unknown) (unknown) (no date) (unknown) (unknown) lorazepam at 2 mg fo r this. (units unknown) (unknown) (unknown) (no date) (unknown) (unknown) marital status: (units unknown) (unknown) (unknown) (no date) (unknown) (unknown) metoclopramide Allergy Mild RASH/HIVES Verified 07/12/22 16:18 (units unknown) (unknown) (unknown) (no date) (unknown) (unknown) mild anemia but improved from her prior with H+H of 11.5 and 35.3, no evidence (units unknown) (unknown) (unknown) (no date) (unknown) (unknown) months. She denies any recent injuries, denies chance of , denies any (units unknown) (unknown) (unknown) (no date) (unknown) (unknown) nausea vomiting or abdominal pain at this time. Denies any vomiting home or (units unknown) (unknown) (unknown) (no date) (unknown) (unknown) number of children: 1 (units unknown) (unknown) (unknown) (no date) (unknown) (unknown) numbness (units unknown) (unknown) (unknown) (no date) (unknown) (unknown) occupational status: employed (units unknown) (unknown) (unknown) (no date) (unknown) (unknown) of bleeding anywhere , CMP (units unknown) (unknown) (unknown) (no date) (unknown) (unknown) on her EKG, patient is alert and oriented x3, complaining of feeling poorly and (units unknown) (unknown) (unknown) (no date) (unknown) (unknown) ondansetron 4 mg disintegrating 4 mg PO Q6H PRN nausea and 06/12/22 (units unknown) (unknown) (unknown) (no date) (unknown) (unknown) ondansetron 4 mg disintegrating 4 mg PO Q8H PRN nausea and 01/01/20 (units unknown) (unknown) (unknown) (no date) (unknown) (unknown) ondansetron 4 mg disintegrating 4 mg PO Q8H PRN nausea and 02/05/20 (units unknown) (unknown) (unknown) (no date) (unknown) (unknown) ondansetron 4 mg tablet,disintegrating (units unknown) (unknown) (unknown) (no date) (unknown) (unknown) ordered p.o. Ativan for her symptoms and ask our into call lab to come up and (units unknown) (unknown) (unknown) (no date) (unknown) (unknown) other ingestions, is pleasant, seeking help with her intoxication and wishes to (units unknown) (unknown) (unknown) (no date) (unknown) (unknown) patient's is at the bedside offering support, she raises nausea, another (units unknown) (unknown) (unknown) (no date) (unknown) (unknown) prenat.vits,otis,min- i thang-folic 1 tab PO DAILY 12/30/19 07/03/20 (units unknown) (unknown) (unknown) (no date) (unknown) (unknown) prenat.vits,otis,min- i thang-folic Tablet (units unknown) (unknown) (unknown) (no date) (unknown) (unknown) relapsed due to a divorce with her . She used to be a frequent visitor (units unknown) (unknown) (unknown) (no date) (unknown) (unknown) resting comfortably, currently pursuing placement at [facility] (units unknown) (unknown) (unknown) (no date) (unknown) (unknown) scores of 10 or less by 4 hours a piece and must also have blood (units unknown) (unknown) (unknown) (no date) (unknown) (unknown) second hand exposure : No (growing up as a child - not currently) (units unknown) (unknown) (unknown) (no date) (unknown) (unknown) significant tremor o r tongue fasciculation, she has a mild tremor with her arms (units unknown) (unknown) (unknown) (no date) (unknown) (unknown) social work and orders are pending (units unknown) (unknown) (unknown) (no date) (unknown) (unknown) special renee needs: No (units unknown) (unknown) (unknown) (no date) (unknown) (unknown) substance abuse, alcohol intoxication, psychosis, mood disorder, depression (units unknown) (unknown) (unknown) (no date) (unknown) (unknown) substance use type: does not use (units unknown) (unknown) (unknown) (no date) (unknown) (unknown) tablet vomiting #14 tabs (units unknown) (unknown) (unknown) (no date) (unknown) (unknown) tablet vomiting #20 tabs (units unknown) (unknown) (unknown) (no date) (unknown) (unknown) tablet vomiting #30 tabs (units unknown) (unknown) (unknown) (no date) (unknown) (unknown) tenderness or exquisite tenderness with exam. (units unknown) (unknown) (unknown) (no date) (unknown) (unknown) that she drinks vodk a and admits to drinking heavily today, states that she took (units unknown) (unknown) (unknown) (no date) (unknown) (unknown) the bottle upside down and started checking from it. She states that she drank (units unknown) (unknown) (unknown) (no date) (unknown) (unknown) thyroid studies are still pending. No significant findings to her CMP. No (units unknown) (unknown) (unknown) (no date) (unknown) (unknown) tramadol 50 mg table t 50 mg PO Q6H PRN pain #10 tabs 06/12/22 (units unknown) (unknown) (unknown) (no date) (unknown) (unknown) tramadol 50 mg tablet (units unknown) (unknown) (unknown) (no date) (unknown) (unknown) tremors, no tachycardia, her CIWA is currently 10, ordered another p.o. dose of (units unknown) (unknown) (unknown) (no date) (unknown) (unknown) urgency or flank pain, endorses nausea without vomiting. Patient has been to (units unknown) (unknown) (unknown) (no date) (unknown) (unknown) well as prior record s if available. (units unknown) (unknown) (unknown) (no date) (unknown) (unknown) wheezing, stridor, o r abnormal breath sounds. No retractions or tachypnea. (units unknown) (unknown) (unknown) (no date) (unknown) (unknown) withdrawal. Patient states that she takes Seroquel 300 mg at night as well as (units unknown) (unknown) Result panel [id number] (unknown) (no date) (unknown) (unknown) (no value) (units unknown) (unknown) (unknown) (no date) (unknown) (unknown) <[email or web address] Do - Last Filed: 07/12/22 20:27> (units unknown) (unknown) (unknown) (no date) (unknown) (unknown) <Reinaldo Arthur DO - Last Filed: 07/13/22 05:30> (units unknown) (unknown) (unknown) (no date) (unknown) (unknown) (1-3) #30 tabs (units unknown) (unknown) (unknown) (no date) (unknown) (unknown) (Benadryl) caps (units unknown) (unknown) (unknown) (no date) (unknown) (unknown) (Colace) (units unknown) (unknown) (unknown) (no date) (unknown) (unknown) (Tylenol) (units unknown) (unknown) (unknown) (no date) (unknown) (unknown) [id number] (units unknown) (unknown) (unknown) (no date) (unknown) (unknown) 01:28 07/13/22 (units unknown) (unknown) (unknown) (no date) (unknown) (unknown) 01:50 (units unknown) (unknown) (unknown) (no date) (unknown) (unknown) 02:00 07/13/22 (units unknown) (unknown) (unknown) (no date) (unknown) (unknown) 02:14 07/13/22 (units unknown) (unknown) (unknown) (no date) (unknown) (unknown) 02:14 (units unknown) (unknown) (unknown) (no date) (unknown) (unknown) 02:30 (units unknown) (unknown) (unknown) (no date) (unknown) (unknown) 07/12/22 07/12/22 07/12/22 Range/Units (units unknown) (unknown) (unknown) (no date) (unknown) (unknown) 07/12/22 19:15 (units unknown) (unknown) (unknown) (no date) (unknown) (unknown) 07/12/22 (units unknown) (unknown) (unknown) (no date) (unknown) (unknown) 07/13/22 (units unknown) (unknown) (unknown) (no date) (unknown) (unknown) 0530 -patient beginning to feel a bit agitated and restless, she is tachycardic. (units unknown) (unknown) (unknown) (no date) (unknown) (unknown) 1 tab PO DAILY (units unknown) (unknown) (unknown) (no date) (unknown) (unknown) 100 mg PO BID Qty: 3 0 0RF (units unknown) (unknown) (unknown) (no date) (unknown) (unknown) 16:32 16:32 16:32 (units unknown) (unknown) (unknown) (no date) (unknown) (unknown) 183 patient still does not have an IV, has not received any IV fluid her (units unknown) (unknown) (unknown) (no date) (unknown) (unknown) 190 still no IV, patient is p.o. challenging, she received her p.o. lorazepam, (units unknown) (unknown) (unknown) (no date) (unknown) (unknown) 1929, patient now feels depressed, she is lying in bed, feeling bad, has (units unknown) (unknown) (unknown) (no date) (unknown) (unknown) 19:15 19:15 19:15 (units unknown) (unknown) (unknown) (no date) (unknown) (unknown) 1999 patient is feeling better now, her lab work is starting to return and ETOH (units unknown) (unknown) (unknown) (no date) (unknown) (unknown) 2002 patient request s to take her home dosing of Seroquel 300 mg, this is (units unknown) (unknown) (unknown) (no date) (unknown) (unknown) 2022 with similar symptoms. She comes in complaining of needing help, states (units unknown) (unknown) (unknown) (no date) (unknown) (unknown) 2199 -[facility] called back and states that patient must have free CIWA (units unknown) (unknown) (unknown) (no date) (unknown) (unknown) 23:30 07/13/22 (units unknown) (unknown) (unknown) (no date) (unknown) (unknown) 25 mg PO BEDTIME PRN (Reason: insomnia) Qty: 20 0RF (units unknown) (unknown) (unknown) (no date) (unknown) (unknown) 325 mg PO Q6H PRN (Reason: pain) Qty: 20 0RF (units unknown) (unknown) (unknown) (no date) (unknown) (unknown) 4 Zofran was ordered . So has not been given, patient is signed out to (units unknown) (unknown) (unknown) (no date) (unknown) (unknown) 4 mg PO Q6H PRN (Reason: nausea and vomiting) Qty: 14 0RF (units unknown) (unknown) (unknown) (no date) (unknown) (unknown) 4 mg PO Q8H PRN (Reason: nausea and vomiting) Qty: 20 0RF (units unknown) (unknown) (unknown) (no date) (unknown) (unknown) 4 mg PO Q8H PRN (Reason: nausea and vomiting) Qty: 30 0RF (units unknown) (unknown) (unknown) (no date) (unknown) (unknown) 50 mg PO Q6H PRN (Reason: pain) Qty: 10 0RF (units unknown) (unknown) (unknown) (no date) (unknown) (unknown) 600 mg PO Q6HR PRN (Reason: Pain, Mild (1-3)) Qty: 30 0RF (units unknown) (unknown) (unknown) (no date) (unknown) (unknown) 750 mL of time. She just she has nothing to do but relapsed. This 3 weeks ago (units unknown) (unknown) (unknown) (no date) (unknown) (unknown) 9 points (units unknown) (unknown) (unknown) (no date) (unknown) (unknown) ALT (<35) IU/L (units unknown) (unknown) (unknown) (no date) (unknown) (unknown) ALT 21 (<35) IU/L (units unknown) (unknown) (unknown) (no date) (unknown) (unknown) AST (14-36) IU/L (units unknown) (unknown) (unknown) (no date) (unknown) (unknown) AST 67 H (14-36) IU/L (units unknown) (unknown) (unknown) (no date) (unknown) (unknown) Acetaminophen < 10 (10-30) ug/mL (units unknown) (unknown) (unknown) (no date) (unknown) (unknown) Acetaminophen (10-30 ) ug/mL (units unknown) (unknown) (unknown) (no date) (unknown) (unknown) Acute cystitis (units unknown) (unknown) (unknown) (no date) (unknown) (unknown) Admin: 07/12/22 19:4 7 Dose: 500 mg (units unknown) (unknown) (unknown) (no date) (unknown) (unknown) Age/Sex: 31 / F (units unknown) (unknown) (unknown) (no date) (unknown) (unknown) Agitation ?> 2 = (More severe symptoms) (units unknown) (unknown) (unknown) (no date) (unknown) (unknown) Albumin (3.5-5.0) g/dL (units unknown) (unknown) (unknown) (no date) (unknown) (unknown) Albumin 4.3 (3.5-5.0 ) g/dL (units unknown) (unknown) (unknown) (no date) (unknown) (unknown) Albumin/Globulin Ratio (1.0-2.8) (units unknown) (unknown) (unknown) (no date) (unknown) (unknown) Albumin/Globulin Ratio 1.4 (1.0-2.8) (units unknown) (unknown) (unknown) (no date) (unknown) (unknown) Alcohol use disorder (units unknown) (unknown) (unknown) (no date) (unknown) (unknown) Alcoholism (units unknown) (unknown) (unknown) (no date) (unknown) (unknown) Alkaline Phosphatase (38-126) U/L (units unknown) (unknown) (unknown) (no date) (unknown) (unknown) Alkaline Phosphatase 98 (38-126) U/L (units unknown) (unknown) (unknown) (no date) (unknown) (unknown) Allergies (units unknown) (unknown) (unknown) (no date) (unknown) (unknown) Allergy/AdvReac Type Severity Reaction Status Date / Time (units unknown) (unknown) (unknown) (no date) (unknown) (unknown) Anemia (-2018) (units unknown) (unknown) (unknown) (no date) (unknown) (unknown) Anxiety ?> 2 = (More severe symptoms) (units unknown) (unknown) (unknown) (no date) (unknown) (unknown) Auditory disturbance s ?> 1 = Very mild harshness or ability to frighten (units unknown) (unknown) (unknown) (no date) (unknown) (unknown) BUN (7-17) mg/dL (units unknown) (unknown) (unknown) (no date) (unknown) (unknown) BUN 9 (7-17) mg/dL (units unknown) (unknown) (unknown) (no date) (unknown) (unknown) BUN/Creatinine Ratio (6-22) (units unknown) (unknown) (unknown) (no date) (unknown) (unknown) BUN/Creatinine Ratio 11.0 (6-22) (units unknown) (unknown) (unknown) (no date) (unknown) (unknown) Baso # (Auto) (0-100 ) /uL (units unknown) (unknown) (unknown) (no date) (unknown) (unknown) Baso # (Auto) 0 (0-100) /uL (units unknown) (unknown) (unknown) (no date) (unknown) (unknown) Baso % (Auto) (0-2) % (units unknown) (unknown) (unknown) (no date) (unknown) (unknown) Baso % (Auto) 0.9 (0-2) % (units unknown) (unknown) (unknown) (no date) (unknown) (unknown) Bedside Urine Bilirubin - Negative (units unknown) (unknown) (unknown) (no date) (unknown) (unknown) Bedside Urine Glucos e Negative (units unknown) (unknown) (unknown) (no date) (unknown) (unknown) Bedside Urine Ketone - Negative (units unknown) (unknown) (unknown) (no date) (unknown) (unknown) Bedside Urine Leukocytes - Negative (units unknown) (unknown) (unknown) (no date) (unknown) (unknown) Bedside Urine Nitrit e + Positive (units unknown) (unknown) (unknown) (no date) (unknown) (unknown) Bedside Urine Occult Blood - Negative (units unknown) (unknown) (unknown) (no date) (unknown) (unknown) Bedside Urine Protei n - Negative (units unknown) (unknown) (unknown) (no date) (unknown) (unknown) Bedside Urine Urobilinogen - Negative (units unknown) (unknown) (unknown) (no date) (unknown) (unknown) Bedside Urine pH 6.0 (units unknown) (unknown) (unknown) (no date) (unknown) (unknown) Blood Pressure 102/5 9 L (units unknown) (unknown) (unknown) (no date) (unknown) (unknown) Blood Pressure 112/6 2 07/12/22 16:10 (units unknown) (unknown) (unknown) (no date) (unknown) (unknown) Blood Pressure 99/58 L (units unknown) (unknown) (unknown) (no date) (unknown) (unknown) Blood Pressure [Left Arm] 95/53 L (units unknown) (unknown) (unknown) (no date) (unknown) (unknown) Blood Pressure [Left Arm] (units unknown) (unknown) (unknown) (no date) (unknown) (unknown) Blood Pressure (units unknown) (unknown) (unknown) (no date) (unknown) (unknown) CIWA is now worse an d she has tremors, anxiety is worsening and agitation, (units unknown) (unknown) (unknown) (no date) (unknown) (unknown) CIWA-Ar for Alcohol Withdrawal from [email or web address] on 07/12/2022 (units unknown) (unknown) (unknown) (no date) (unknown) (unknown) Calcium (8.4-10.2) mg/dL (units unknown) (unknown) (unknown) (no date) (unknown) (unknown) Calcium 8.0 L (8.4-10.2) mg/dL (units unknown) (unknown) (unknown) (no date) (unknown) (unknown) Carbon Dioxide (22-32) mmol/L (units unknown) (unknown) (unknown) (no date) (unknown) (unknown) Carbon Dioxide 23 (22-32) mmol/L (units unknown) (unknown) (unknown) (no date) (unknown) (unknown) Cardiovascular: Tachycardic rate and rhythm, no peripheral edema, warm (units unknown) (unknown) (unknown) (no date) (unknown) (unknown) Cephalexin HCl (Cephalexin 250 Mg Capsule) 500 mg PO Q6H SANDY (units unknown) (unknown) (unknown) (no date) (unknown) (unknown) Chief Complaint: Alcohol intoxication, seeking detox (units unknown) (unknown) (unknown) (no date) (unknown) (unknown) Chief Complaint: Toxicology Problem (units unknown) (unknown) (unknown) (no date) (unknown) (unknown) Chloride (98-107) mmol/L (units unknown) (unknown) (unknown) (no date) (unknown) (unknown) Chloride 104 (98-107 ) mmol/L (units unknown) (unknown) (unknown) (no date) (unknown) (unknown) Clinical Impression: (units unknown) (unknown) (unknown) (no date) (unknown) (unknown) Clinical decision rules or scores evaluated: CIWA of 9 at 1753 (units unknown) (unknown) (unknown) (no date) (unknown) (unknown) Course of care: Patient is a difficult IV stick, ordered IV with lab work, (units unknown) (unknown) (unknown) (no date) (unknown) (unknown) Course (units unknown) (unknown) (unknown) (no date) (unknown) (unknown) Creatinine (0.52-1.04) mg/dL (units unknown) (unknown) (unknown) (no date) (unknown) (unknown) Creatinine 0.82 (0.52-1.04) mg/dL (units unknown) (unknown) (unknown) (no date) (unknown) (unknown) Samantha Arthur gave her grilled cheese, soup, some juice and encouraged her to stay (units unknown) (unknown) (unknown) (no date) (unknown) (unknown) : 1990 Acct:[id number] (units unknown) (unknown) (unknown) (no date) (unknown) (unknown) Date of Service: 07/12/22 (units unknown) (unknown) (unknown) (no date) (unknown) (unknown) Departure (units unknown) (unknown) (unknown) (no date) (unknown) (unknown) Differential diagnoses include but are not limited to: Alcohol withdrawal, (units unknown) (unknown) (unknown) (no date) (unknown) (unknown) Discharge Plan (units unknown) (unknown) (unknown) (no date) (unknown) (unknown) Discontinued Medications (units unknown) (unknown) (unknown) (no date) (unknown) (unknown) Documented By: AP (units unknown) (unknown) (unknown) (no date) (unknown) (unknown) Documented By: KB (units unknown) (unknown) (unknown) (no date) (unknown) (unknown) Documented By: OW (units unknown) (unknown) (unknown) (no date) (unknown) (unknown) ECG Data (units unknown) (unknown) (unknown) (no date) (unknown) (unknown) EKG independently reviewed by myself at 1830 reveals normal sinus rhythm at 72 (units unknown) (unknown) (unknown) (no date) (unknown) (unknown) ER Physician: Reinaldo Arthur D.O. (units unknown) (unknown) (unknown) (no date) (unknown) (unknown) Emergency Report (units unknown) (unknown) (unknown) (no date) (unknown) (unknown) Eos # (Auto) (0-450) /uL (units unknown) (unknown) (unknown) (no date) (unknown) (unknown) Eos # (Auto) 0 (0-450) /uL (units unknown) (unknown) (unknown) (no date) (unknown) (unknown) Eos % (Auto) (2-4) % (units unknown) (unknown) (unknown) (no date) (unknown) (unknown) Eos % (Auto) 0.3 L (2-4) % (units unknown) (unknown) (unknown) (no date) (unknown) (unknown) Esterase (units unknown) (unknown) (unknown) (no date) (unknown) (unknown) Estimated GFR > 60 (>60) mL/min (units unknown) (unknown) (unknown) (no date) (unknown) (unknown) Estimated GFR (>60) mL/min (units unknown) (unknown) (unknown) (no date) (unknown) (unknown) Ethyl Alcohol ( - 10 ) mg/dL (units unknown) (unknown) (unknown) (no date) (unknown) (unknown) Ethyl Alcohol 338 H ( - 10) mg/dL (units unknown) (unknown) (unknown) (no date) (unknown) (unknown) Exam Narrative: (units unknown) (unknown) (unknown) (no date) (unknown) (unknown) Exam (units unknown) (unknown) (unknown) (no date) (unknown) (unknown) Family History (units unknown) (unknown) (unknown) (no date) (unknown) (unknown) Family/Other Alcoholism (units unknown) (unknown) (unknown) (no date) (unknown) (unknown) Family/Other Diabete s mellitus (units unknown) (unknown) (unknown) (no date) (unknown) (unknown) Father Alcoholism (units unknown) (unknown) (unknown) (no date) (unknown) (unknown) Tonia Schneider MD [Primary Care Provider] (units unknown) (unknown) (unknown) (no date) (unknown) (unknown) Folic Acid (Folic Acid 1 Mg Tablet) 1 mg PO DAILY SANDY (units unknown) (unknown) (unknown) (no date) (unknown) (unknown) Free T4 (0.78-2.19) ng/dL (units unknown) (unknown) (unknown) (no date) (unknown) (unknown) Free T4 0.93 (0.78-2.19) ng/dL (units unknown) (unknown) (unknown) (no date) (unknown) (unknown) GI: abdomen soft, nontender to palpation, nondistended, without masses, rebound (units unknown) (unknown) (unknown) (no date) (unknown) (unknown) General (units unknown) (unknown) (unknown) (no date) (unknown) (unknown) General: cooperative , comfortable, in no acute distress, well groomed, appears (units unknown) (unknown) (unknown) (no date) (unknown) (unknown) Globulin (1.7-4.1) g/dL (units unknown) (unknown) (unknown) (no date) (unknown) (unknown) Globulin 3.0 (1.7-4.1) g/dL (units unknown) (unknown) (unknown) (no date) (unknown) (unknown) Glucose (70-100) mg/dL (units unknown) (unknown) (unknown) (no date) (unknown) (unknown) Glucose 111 H (70-100) mg/dL (units unknown) (unknown) (unknown) (no date) (unknown) (unknown) Grandfather Smoker (units unknown) (unknown) (unknown) (no date) (unknown) (unknown) Grandfather Unknown whether patient has any health problems (units unknown) (unknown) (unknown) (no date) (unknown) (unknown) Grandmother Diabetes mellitus (units unknown) (unknown) (unknown) (no date) (unknown) (unknown) Grandmother Hypoglycemia (units unknown) (unknown) (unknown) (no date) (unknown) (unknown) H/O dilation and curettage (-12/14/16) (units unknown) (unknown) (unknown) (no date) (unknown) (unknown) H/O wisdom tooth extraction () (units unknown) (unknown) (unknown) (no date) (unknown) (unknown) HEENT: symmetrical facial expressions, dry mucous membranes (units unknown) (unknown) (unknown) (no date) (unknown) (unknown) HPI - Alcohol (units unknown) (unknown) (unknown) (no date) (unknown) (unknown) HPI narrative: (units unknown) (unknown) (unknown) (no date) (unknown) (unknown) Hct (36-46) % (units unknown) (unknown) (unknown) (no date) (unknown) (unknown) Hct 35.3 L (36-46) % (units unknown) (unknown) (unknown) (no date) (unknown) (unknown) Headache/fullness in head ?> 1 = Very mild (units unknown) (unknown) (unknown) (no date) (unknown) (unknown) Hematuria presence: without hematuria Qualified Code(s): N30.00 - Acute (units unknown) (unknown) (unknown) (no date) (unknown) (unknown) Hgb (12.0-16.0) g/dL (units unknown) (unknown) (unknown) (no date) (unknown) (unknown) Hgb 11.5 L (12.0-16.0) g/dL (units unknown) (unknown) (unknown) (no date) (unknown) (unknown) History of Present Illness (units unknown) (unknown) (unknown) (no date) (unknown) (unknown) Home Medications (units unknown) (unknown) (unknown) (no date) (unknown) (unknown) I have independently reviewed the patient's vital signs and nursing notes as (units unknown) (unknown) (unknown) (no date) (unknown) (unknown) INPUTS: (units unknown) (unknown) (unknown) (no date) (unknown) (unknown) Independent historian: Patient (units unknown) (unknown) (unknown) (no date) (unknown) (unknown) Initial Vital Signs (units unknown) (unknown) (unknown) (no date) (unknown) (unknown) Initial Vital Signs: (units unknown) (unknown) (unknown) (no date) (unknown) (unknown) Insomnia (units unknown) (unknown) (unknown) (no date) (unknown) (unknown) Interpretation: (units unknown) (unknown) (unknown) (no date) (unknown) (unknown) [address] [address] (units unknown) (unknown) (unknown) (no date) (unknown) (unknown) Lab Data (units unknown) (unknown) (unknown) (no date) (unknown) (unknown) Lab Results (units unknown) (unknown) (unknown) (no date) (unknown) (unknown) Labs: (units unknown) (unknown) (unknown) (no date) (unknown) (unknown) Last Admin: 07/12/22 18:39 Dose: 4 mg (units unknown) (unknown) (unknown) (no date) (unknown) (unknown) Last Admin: 07/12/22 18:40 Dose: 1 mg (units unknown) (unknown) (unknown) (no date) (unknown) (unknown) Last Admin: 07/12/22 18:56 Dose: Not Given (units unknown) (unknown) (unknown) (no date) (unknown) (unknown) Last Admin: 07/12/22 19:48 Dose: 2 mg (units unknown) (unknown) (unknown) (no date) (unknown) (unknown) Last Admin: 07/12/22 19:49 Dose: 100 mg (units unknown) (unknown) (unknown) (no date) (unknown) (unknown) Last Admin: 07/13/22 02:11 Dose: 500 mg (units unknown) (unknown) (unknown) (no date) (unknown) (unknown) Last Admin: 07/13/22 03:36 Dose: 2 mg (units unknown) (unknown) (unknown) (no date) (unknown) (unknown) Librium but she does not have this medicine with her, she only has the Seroquel. (units unknown) (unknown) (unknown) (no date) (unknown) (unknown) Lorazepam (Lorazepam 0.5 Mg Tablet) 1 mg PO NOW ONE (units unknown) (unknown) (unknown) (no date) (unknown) (unknown) Lorazepam (Lorazepam 0.5 Mg Tablet) 2 mg PO NOW ONE (units unknown) (unknown) (unknown) (no date) (unknown) (unknown) Lorazepam (Lorazepam 2 Mg/Ml Inj) 2 mg IV NOW ONE (units unknown) (unknown) (unknown) (no date) (unknown) (unknown) Lymph # (Auto) ([id number]) /uL (units unknown) (unknown) (unknown) (no date) (unknown) (unknown) Lymph # (Auto) 1700 ([id number]) /uL (units unknown) (unknown) (unknown) (no date) (unknown) (unknown) Lymph % (Auto) (25-40) % (units unknown) (unknown) (unknown) (no date) (unknown) (unknown) Lymph % (Auto) 50.6 H (25-40) % (units unknown) (unknown) (unknown) (no date) (unknown) (unknown) MCH (26-34) PG (units unknown) (unknown) (unknown) (no date) (unknown) (unknown) MCH 26.0 (26-34) PG (units unknown) (unknown) (unknown) (no date) (unknown) (unknown) MCHC (30-36) % (units unknown) (unknown) (unknown) (no date) (unknown) (unknown) MCHC 32.7 (30-36) % (units unknown) (unknown) (unknown) (no date) (unknown) (unknown) MCV (80-100) fL (units unknown) (unknown) (unknown) (no date) (unknown) (unknown) MCV 79.5 L (80-100) fL (units unknown) (unknown) (unknown) (no date) (unknown) (unknown) MDM - Alcohol (units unknown) (unknown) (unknown) (no date) (unknown) (unknown) MDM Narrative (units unknown) (unknown) (unknown) (no date) (unknown) (unknown) MIPS: This encounter doesn't have any diagnosis' associated with MIPS criteria. (units unknown) (unknown) (unknown) (no date) (unknown) (unknown) MSK: moves all extremities, neurovascularly intact, no weakness, normal tone no (units unknown) (unknown) (unknown) (no date) (unknown) (unknown) Medical History (units unknown) (unknown) (unknown) (no date) (unknown) (unknown) Medical decision making narrative: (units unknown) (unknown) (unknown) (no date) (unknown) (unknown) Medication Instructions Recorded Confirmed (units unknown) (unknown) (unknown) (no date) (unknown) (unknown) Medication Instructions Recorded (units unknown) (unknown) (unknown) (no date) (unknown) (unknown) Menometrorrhagia (units unknown) (unknown) (unknown) (no date) (unknown) (unknown) Mode of arrival: Ambulatory (units unknown) (unknown) (unknown) (no date) (unknown) (unknown) [place] # (Auto) (0-900 ) /uL (units unknown) (unknown) (unknown) (no date) (unknown) (unknown) [place] # (Auto) 100 (0-900) /uL (units unknown) (unknown) (unknown) (no date) (unknown) (unknown) [place] % (Auto) (3-14) % (units unknown) (unknown) (unknown) (no date) (unknown) (unknown) [place] % (Auto) 2.7 L (3-14) % (units unknown) (unknown) (unknown) (no date) (unknown) (unknown) Mother Diabetes mellitus (units unknown) (unknown) (unknown) (no date) (unknown) (unknown) Narrative (units unknown) (unknown) (unknown) (no date) (unknown) (unknown) Nausea/vomiting ?> 0 = No nausea and no vomiting (units unknown) (unknown) (unknown) (no date) (unknown) (unknown) Neuro: normal speech and cognition, A+O x3, ambulatory, clear speech (units unknown) (unknown) (unknown) (no date) (unknown) (unknown) Neut # (Auto) (2160-5422) /uL (units unknown) (unknown) (unknown) (no date) (unknown) (unknown) Neut # (Auto) 1500 (6327-7049) /uL (units unknown) (unknown) (unknown) (no date) (unknown) (unknown) Neut % (Auto) (50-75 ) % (units unknown) (unknown) (unknown) (no date) (unknown) (unknown) Neut % (Auto) 45.5 L (50-75) % (units unknown) (unknown) (unknown) (no date) (unknown) (unknown) No Action (units unknown) (unknown) (unknown) (no date) (unknown) (unknown) Obesity (units unknown) (unknown) (unknown) (no date) (unknown) (unknown) Ondansetron HCl (Ondansetron 4 Mg Odt) 4 mg SL NOW ONE (units unknown) (unknown) (unknown) (no date) (unknown) (unknown) Ondansetron HCl (Ondansetron 4 Mg/2 Ml Inj) 4 mg IV Q6HR PRN (units unknown) (unknown) (unknown) (no date) (unknown) (unknown) Ordered: (units unknown) (unknown) (unknown) (no date) (unknown) (unknown) Orders (units unknown) (unknown) (unknown) (no date) (unknown) (unknown) Orientation/clouding of sensorium ?> 0 = Oriented, can do serial additions (units unknown) (unknown) (unknown) (no date) (unknown) (unknown) Over the course of the night we have called various other facilities and they (units unknown) (unknown) (unknown) (no date) (unknown) (unknown) Overweight (units unknown) (unknown) (unknown) (no date) (unknown) (unknown) Oxygen Delivery Method Room Air 07/12/22 16:10 (units unknown) (unknown) (unknown) (no date) (unknown) (unknown) Oxygen Delivery Method Room Air Room Air (units unknown) (unknown) (unknown) (no date) (unknown) (unknown) Oxygen Delivery Method (units unknown) (unknown) (unknown) (no date) (unknown) (unknown) PRN Reason: Nausea And Vomiting (units unknown) (unknown) (unknown) (no date) (unknown) (unknown) Paroxysmal sweats ?> 0 = No sweat visible (units unknown) (unknown) (unknown) (no date) (unknown) (unknown) Patient [facility] (units unknown) (unknown) (unknown) (no date) (unknown) (unknown) Patient History (units unknown) (unknown) (unknown) (no date) (unknown) (unknown) Patient has allergy to Reglan and hydrocodone. She denies urinary frequency, (units unknown) (unknown) (unknown) (no date) (unknown) (unknown) Patient's CIWA at 2019 is 12, I ordered for her 2 more mg of lorazepam p.o., (units unknown) (unknown) (unknown) (no date) (unknown) (unknown) Patient: Sarah Connors MR#: M (units unknown) (unknown) (unknown) (no date) (unknown) (unknown) Patients with scores >= may require medication for withdrawal. (units unknown) (unknown) (unknown) (no date) (unknown) (unknown) Pertinent lab findings reviewed: CBC is pertinent for mild leukopenia of 3.3, (units unknown) (unknown) (unknown) (no date) (unknown) (unknown) Plt Count (150-400) X103/uL (units unknown) (unknown) (unknown) (no date) (unknown) (unknown) Plt Count 226 (150-400) X103/uL (units unknown) (unknown) (unknown) (no date) (unknown) (unknown) Point of Care Testing (units unknown) (unknown) (unknown) (no date) (unknown) (unknown) Potassium (3.4-5.1) mmol/L (units unknown) (unknown) (unknown) (no date) (unknown) (unknown) Potassium 3.9 (3.4-5.1) mmol/L (units unknown) (unknown) (unknown) (no date) (unknown) (unknown) Test Results Negative (units unknown) (unknown) (unknown) (no date) (unknown) (unknown) Prescriptions: (units unknown) (unknown) (unknown) (no date) (unknown) (unknown) Previous Rx's (units unknown) (unknown) (unknown) (no date) (unknown) (unknown) Psych: mental status is intact, patient has a normal affect although she is (units unknown) (unknown) (unknown) (no date) (unknown) (unknown) Pulse Oximetry 97 100 (units unknown) (unknown) (unknown) (no date) (unknown) (unknown) Pulse Oximetry 98 97 96 (units unknown) (unknown) (unknown) (no date) (unknown) (unknown) Pulse Oximetry 99 07/12/22 16:10 (units unknown) (unknown) (unknown) (no date) (unknown) (unknown) Pulse Oximetry 99 (units unknown) (unknown) (unknown) (no date) (unknown) (unknown) Pulse Rate 82 07/12/22 16:10 (units unknown) (unknown) (unknown) (no date) (unknown) (unknown) Pulse Rate 90 (units unknown) (unknown) (unknown) (no date) (unknown) (unknown) Pulse Rate 94 H 92 H 88 (units unknown) (unknown) (unknown) (no date) (unknown) (unknown) Pulse Rate 97 H 87 (units unknown) (unknown) (unknown) (no date) (unknown) (unknown) Qualifiers: (units unknown) (unknown) (unknown) (no date) (unknown) (unknown) Questions are addressed and there is agreement with the plan and for follow-up. (units unknown) (unknown) (unknown) (no date) (unknown) (unknown) RBC (4.0-5.2) X106/uL (units unknown) (unknown) (unknown) (no date) (unknown) (unknown) RBC 4.44 (4.0-5.2) X106/uL (units unknown) (unknown) (unknown) (no date) (unknown) (unknown) RDW (11.6-14.8) % (units unknown) (unknown) (unknown) (no date) (unknown) (unknown) RDW 17.3 H (11.6-14.8) % (units unknown) (unknown) (unknown) (no date) (unknown) (unknown) RESULT SUMMARY: (units unknown) (unknown) (unknown) (no date) (unknown) (unknown) ROS Unobtainable: Al l systems reviewed + are unremarkable except as noted in HPI (units unknown) (unknown) (unknown) (no date) (unknown) (unknown) Referrals: (units unknown) (unknown) (unknown) (no date) (unknown) (unknown) Related Data (units unknown) (unknown) (unknown) (no date) (unknown) (unknown) Respiratory Rate 14 07/12/22 16:10 (units unknown) (unknown) (unknown) (no date) (unknown) (unknown) Respiratory Rate 16 18 (units unknown) (unknown) (unknown) (no date) (unknown) (unknown) Respiratory Rate (units unknown) (unknown) (unknown) (no date) (unknown) (unknown) Respiratory: normal effort, able to speak in complete sentences, without (units unknown) (unknown) (unknown) (no date) (unknown) (unknown) Review of Systems (units unknown) (unknown) (unknown) (no date) (unknown) (unknown) Reviewed vitals sign s and nursing notes. (units unknown) (unknown) (unknown) (no date) (unknown) (unknown) S/P myringotomy with insertion of tube (units unknown) (unknown) (unknown) (no date) (unknown) (unknown) SARS-CoV-2 (PCR) (Negative) (units unknown) (unknown) (unknown) (no date) (unknown) (unknown) SARS-CoV-2 (PCR) Negative (Negative) (units unknown) (unknown) (unknown) (no date) (unknown) (unknown) (spontaneous vaginal delivery) (-09/05/18) (units unknown) (unknown) (unknown) (no date) (unknown) (unknown) Salicylates < 1.0 (<20) mg/dL (units unknown) (unknown) (unknown) (no date) (unknown) (unknown) Salicylates (<20) mg/dL (units unknown) (unknown) (unknown) (no date) (unknown) (unknown) She was given a couple water, a diet order was ordered however they may not (units unknown) (unknown) (unknown) (no date) (unknown) (unknown) Signed By: (units unknown) (unknown) (unknown) (no date) (unknown) (unknown) Skin: brisk capillar y refill, without pallor or erythema (units unknown) (unknown) (unknown) (no date) (unknown) (unknown) Smoker (units unknown) (unknown) (unknown) (no date) (unknown) (unknown) [place] in the past. She has been sober for a total of 18 (units unknown) (unknown) (unknown) (no date) (unknown) (unknown) Smoking Status: Former smoker (units unknown) (unknown) (unknown) (no date) (unknown) (unknown) Social History (units unknown) (unknown) (unknown) (no date) (unknown) (unknown) Social consideration s that may affect disposition: none (units unknown) (unknown) (unknown) (no date) (unknown) (unknown) Sodium (137-145) mmol/L (units unknown) (unknown) (unknown) (no date) (unknown) (unknown) Sodium 140 (137-145) mmol/L (units unknown) (unknown) (unknown) (no date) (unknown) (unknown) Sodium Chloride (Normal Saline 0.9%) 1,000 mls @ 1,000 mls/hr IV BOLUS ONE (units unknown) (unknown) (unknown) (no date) (unknown) (unknown) Source: patient (units unknown) (unknown) (unknown) (no date) (unknown) (unknown) Stated Complaint: Stress/Depression (units unknown) (unknown) (unknown) (no date) (unknown) (unknown) Stop: 07/12/22 17:33 (units unknown) (unknown) (unknown) (no date) (unknown) (unknown) Stop: 07/12/22 17:45 (units unknown) (unknown) (unknown) (no date) (unknown) (unknown) Stop: 07/12/22 18:28 (units unknown) (unknown) (unknown) (no date) (unknown) (unknown) Stop: 07/12/22 18:31 (units unknown) (unknown) (unknown) (no date) (unknown) (unknown) Stop: 07/12/22 19:25 (units unknown) (unknown) (unknown) (no date) (unknown) (unknown) Stop: 07/12/22 20:03 (units unknown) (unknown) (unknown) (no date) (unknown) (unknown) Stop: 07/12/22 20:17 (units unknown) (unknown) (unknown) (no date) (unknown) (unknown) Substance Use Type: does not use (units unknown) (unknown) (unknown) (no date) (unknown) (unknown) Surgical History (units unknown) (unknown) (unknown) (no date) (unknown) (unknown) TSH (0.47-4.68) uIU/mL (units unknown) (unknown) (unknown) (no date) (unknown) (unknown) TSH 1.24 (0.47-4.68) uIU/mL (units unknown) (unknown) (unknown) (no date) (unknown) (unknown) Tactile disturbances ?> 1 = Very mild itching, pin and needles, burning, or (units unknown) (unknown) (unknown) (no date) (unknown) (unknown) Temperature 97.2 F L 07/12/22 16:10 (units unknown) (unknown) (unknown) (no date) (unknown) (unknown) Thiamine HCl (Thiamine 100 Mg Tablet) 100 mg PO NOW ONE (units unknown) (unknown) (unknown) (no date) (unknown) (unknown) Thiamine HCl 200 mg/ Sodium (Chloride) 102 mls @ 408 mls/hr IV NOW ONE (units unknown) (unknown) (unknown) (no date) (unknown) (unknown) This is a 31-year-ol d female with history of alcohol abuse and appears to have (units unknown) (unknown) (unknown) (no date) (unknown) (unknown) Time Seen by Provider: 07/12/22 17:05 (units unknown) (unknown) (unknown) (no date) (unknown) (unknown) Total Bilirubin (0.2-1.3) mg/dL (units unknown) (unknown) (unknown) (no date) (unknown) (unknown) Total Bilirubin 0.4 (0.2-1.3) mg/dL (units unknown) (unknown) (unknown) (no date) (unknown) (unknown) Total Protein (6.3-8.2) g/dL (units unknown) (unknown) (unknown) (no date) (unknown) (unknown) Total Protein 7.3 (6.3-8.2) g/dL (units unknown) (unknown) (unknown) (no date) (unknown) (unknown) Tremor ?> 1 = Not visible, but can be felt fingertip to fingertip (units unknown) (unknown) (unknown) (no date) (unknown) (unknown) U Benzodiazepines Scrn (Negative) (units unknown) (unknown) (unknown) (no date) (unknown) (unknown) U Benzodiazepines Scrn Negative (Negative) (units unknown) (unknown) (unknown) (no date) (unknown) (unknown) U Marijuana (THC) Screen (Negative) (units unknown) (unknown) (unknown) (no date) (unknown) (unknown) U Marijuana (THC) Screen Negative (Negative) (units unknown) (unknown) (unknown) (no date) (unknown) (unknown) U Methamphetamines Scrn (Negative) (units unknown) (unknown) (unknown) (no date) (unknown) (unknown) U Methamphetamines Scrn Negative (Negative) (units unknown) (unknown) (unknown) (no date) (unknown) (unknown) U Opiates 300ng/mL cut (Negative) (units unknown) (unknown) (unknown) (no date) (unknown) (unknown) U Opiates 300ng/mL cut Negative (Negative) (units unknown) (unknown) (unknown) (no date) (unknown) (unknown) U Tricyclic Antidepress (Negative) (units unknown) (unknown) (unknown) (no date) (unknown) (unknown) U Tricyclic Antidepress Negative (Negative) (units unknown) (unknown) (unknown) (no date) (unknown) (unknown) Ur Amphetamines Screen (Negative) (units unknown) (unknown) (unknown) (no date) (unknown) (unknown) Ur Amphetamines Screen Negative (Negative) (units unknown) (unknown) (unknown) (no date) (unknown) (unknown) Ur Barbiturates Screen (Negative) (units unknown) (unknown) (unknown) (no date) (unknown) (unknown) Ur Barbiturates Screen Negative (Negative) (units unknown) (unknown) (unknown) (no date) (unknown) (unknown) Ur Culture Indicated ? Specimen cultured (units unknown) (unknown) (unknown) (no date) (unknown) (unknown) Ur Culture Indicated? (units unknown) (unknown) (unknown) (no date) (unknown) (unknown) Ur MDMA Scrn (Ecstasy) (Negative) (units unknown) (unknown) (unknown) (no date) (unknown) (unknown) Ur MDMA Scrn (Ecstasy) Negative (Negative) (units unknown) (unknown) (unknown) (no date) (unknown) (unknown) Ur Oxycodone Screen (Negative) (units unknown) (unknown) (unknown) (no date) (unknown) (unknown) Ur Oxycodone Screen Negative (Negative) (units unknown) (unknown) (unknown) (no date) (unknown) (unknown) Ur Phencyclidine Scr n (Negative) (units unknown) (unknown) (unknown) (no date) (unknown) (unknown) Ur Phencyclidine Scr n Negative (Negative) (units unknown) (unknown) (unknown) (no date) (unknown) (unknown) Ur Squamous Epith Cells (0-5/HPF) (units unknown) (unknown) (unknown) (no date) (unknown) (unknown) Ur Squamous Epith Cells 1-5 /hpf (0-5/HPF) (units unknown) (unknown) (unknown) (no date) (unknown) (unknown) Urine Bacteria (None) (units unknown) (unknown) (unknown) (no date) (unknown) (unknown) Urine Bacteria Many (>30) H (None) (units unknown) (unknown) (unknown) (no date) (unknown) (unknown) Urine Cocaine Screen (Negative) (units unknown) (unknown) (unknown) (no date) (unknown) (unknown) Urine Cocaine Screen Negative (Negative) (units unknown) (unknown) (unknown) (no date) (unknown) (unknown) Urine Dip (units unknown) (unknown) (unknown) (no date) (unknown) (unknown) Urine Methadone Screen (Negative) (units unknown) (unknown) (unknown) (no date) (unknown) (unknown) Urine Methadone Screen Negative (Negative) (units unknown) (unknown) (unknown) (no date) (unknown) (unknown) Urine RBC (0-5/HPF) (units unknown) (unknown) (unknown) (no date) (unknown) (unknown) Urine RBC 1-5/hpf (0-5/HPF) (units unknown) (unknown) (unknown) (no date) (unknown) (unknown) Urine Specific [place] 1.015 (units unknown) (unknown) (unknown) (no date) (unknown) (unknown) Urine WBC (0-5/HPF) (units unknown) (unknown) (unknown) (no date) (unknown) (unknown) Urine WBC 1-5/hpf (0-5/HPF) (units unknown) (unknown) (unknown) (no date) (unknown) (unknown) Urine microscopy wit h many bacteria, pending for culture, will treat for acute (units unknown) (unknown) (unknown) (no date) (unknown) (unknown) Visual disturbances ?> 1 = Very mild sensitivity (units unknown) (unknown) (unknown) (no date) (unknown) (unknown) Vital Signs - 8 hr (units unknown) (unknown) (unknown) (no date) (unknown) (unknown) Vital Signs (units unknown) (unknown) (unknown) (no date) (unknown) (unknown) Vital signs: (units unknown) (unknown) (unknown) (no date) (unknown) (unknown) WBC (4.5-11.0) X103/uL (units unknown) (unknown) (unknown) (no date) (unknown) (unknown) WBC 3.3 L (4.5-11.0) X103/uL (units unknown) (unknown) (unknown) (no date) (unknown) (unknown) [1900] ([place]) Patient received in sign out [facility] [employer]. I have reviewed the (units unknown) (unknown) (unknown) (no date) (unknown) (unknown) [Embedded Image Not Available] (units unknown) (unknown) (unknown) (no date) (unknown) (unknown) [METOCLOPRAMIDE] (units unknown) (unknown) (unknown) (no date) (unknown) (unknown) acceptable. She is nauseated, without vomiting, received Zofran previously and (units unknown) (unknown) (unknown) (no date) (unknown) (unknown) acetaminophen 325 mg tablet 325 mg PO Q6H PRN pain #20 tabs 02/05/20 (units unknown) (unknown) (unknown) (no date) (unknown) (unknown) acetaminophen [Tylenol] 325 mg tablet (units unknown) (unknown) (unknown) (no date) (unknown) (unknown) alcohol in 300s, she was last here in the emergency department in May of (units unknown) (unknown) (unknown) (no date) (unknown) (unknown) alcohol intake frequency: 3 or more drinks per day (units unknown) (unknown) (unknown) (no date) (unknown) (unknown) alcohol intake: former (units unknown) (unknown) (unknown) (no date) (unknown) (unknown) alcohol level below 0.08 to be considered for placement there. (units unknown) (unknown) (unknown) (no date) (unknown) (unknown) and below (units unknown) (unknown) (unknown) (no date) (unknown) (unknown) and she drinking daily since this happened. She wants rehab. She has been (units unknown) (unknown) (unknown) (no date) (unknown) (unknown) anxious, intoxicated and now withdrawing. pleasant and cooperative (units unknown) (unknown) (unknown) (no date) (unknown) (unknown) are currently no available beds. Patient resting comfortably (units unknown) (unknown) (unknown) (no date) (unknown) (unknown) arrhythmia, or acute ischemic changes. (units unknown) (unknown) (unknown) (no date) (unknown) (unknown) at extension and states that she feels symptoms of alcohol withdrawal. Denies (units unknown) (unknown) (unknown) (no date) (unknown) (unknown) being depressed at this time, CIWA is an 8. (units unknown) (unknown) (unknown) (no date) (unknown) (unknown) bpm with rightward axis and normal intervals. No STEMI, ST segment changes, (units unknown) (unknown) (unknown) (no date) (unknown) (unknown) clinical course and performed an independent history and physical exam. Patient (units unknown) (unknown) (unknown) (no date) (unknown) (unknown) current occupational exposures/hazards: Yes (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 with Pandemic ) (units unknown) (unknown) (unknown) (no date) (unknown) (unknown) cystitis without hematuria (units unknown) (unknown) (unknown) (no date) (unknown) (unknown) cystitis (units unknown) (unknown) (unknown) (no date) (unknown) (unknown) cystitis, she is p.o . tolerant, still pending lab work (units unknown) (unknown) (unknown) (no date) (unknown) (unknown) deliver since it is after 17:00 and the diet order was ordered at 17:30. Samira (units unknown) (unknown) (unknown) (no date) (unknown) (unknown) detox 11 times, states that it has taking Antabuse, Librium, Ativan, she denies (units unknown) (unknown) (unknown) (no date) (unknown) (unknown) detox as well. (units unknown) (unknown) (unknown) (no date) (unknown) (unknown) diarrhea or current stool changes. (units unknown) (unknown) (unknown) (no date) (unknown) (unknown) diphenhydramine HCl 25 mg capsule 25 mg PO BEDTIME PRN insomnia #20 02/05/20 (units unknown) (unknown) (unknown) (no date) (unknown) (unknown) diphenhydramine HCl [Benadryl] 25 mg capsule (units unknown) (unknown) (unknown) (no date) (unknown) (unknown) docusate sodium 100 mg capsule 100 mg PO BID #30 caps 02/05/20 (units unknown) (unknown) (unknown) (no date) (unknown) (unknown) docusate sodium [Colace] 100 mg capsule (units unknown) (unknown) (unknown) (no date) (unknown) (unknown) draw her labs (units unknown) (unknown) (unknown) (no date) (unknown) (unknown) education level: college (units unknown) (unknown) (unknown) (no date) (unknown) (unknown) electrolyte abnormalities. 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[employer] (units unknown) (unknown) (unknown) (no date) (unknown) (unknown) fidgeting (units unknown) (unknown) (unknown) (no date) (unknown) (unknown) fluid, EtOH, and CIWA, ordered 2 mg of IV lorazepam for patient's symptoms, (units unknown) (unknown) (unknown) (no date) (unknown) (unknown) for alcohol related complaints through 2019, and she presented to the [facility] (units unknown) (unknown) (unknown) (no date) (unknown) (unknown) from social work is aware and pending her lab work to arrange for inpatient (units unknown) (unknown) (unknown) (no date) (unknown) (unknown) go to detox. She is currently intoxicated endorses symptoms of alcohol (units unknown) (unknown) (unknown) (no date) (unknown) (unknown) her urine microscopy came back positive for many bacteria, will treat for acute (units unknown) (unknown) (unknown) (no date) (unknown) (unknown) household members: spouse and children (units unknown) (unknown) (unknown) (no date) (unknown) (unknown) hydrated. (units unknown) (unknown) (unknown) (no date) (unknown) (unknown) hydrocodone [HYDROCODONE] AdvReac Unknown VOMITING Verified 07/12/22 16:18 (units unknown) (unknown) (unknown) (no date) (unknown) (unknown) ibuprofen 600 mg Tablet (units unknown) (unknown) (unknown) (no date) (unknown) (unknown) ibuprofen 600 mg tablet 600 mg PO Q6HR PRN Pain, Mild 07/04/20 (units unknown) (unknown) (unknown) (no date) (unknown) (unknown) intoxicated, pleasant, interactive and comfortable although active, anxious and (units unknown) (unknown) (unknown) (no date) (unknown) (unknown) is 338, COVID PCR wa s negative, drug screen is negative for all tested agents, (units unknown) (unknown) (unknown) (no date) (unknown) (unknown) is allergic to Reglan, will dose with another 5 mg of Zofran, no QT prolongation (units unknown) (unknown) (unknown) (no date) (unknown) (unknown) knowing if she is cox d phenobarbital in the past. (units unknown) (unknown) (unknown) (no date) (unknown) (unknown) limited history currently due to intoxication. She states that she is recently (units unknown) (unknown) (unknown) (no date) (unknown) (unknown) lorazepam at 2 mg fo r this. (units unknown) (unknown) (unknown) (no date) (unknown) (unknown) marital status: (units unknown) (unknown) (unknown) (no date) (unknown) (unknown) metoclopramide Allergy Mild RASH/HIVES Verified 07/12/22 16:18 (units unknown) (unknown) (unknown) (no date) (unknown) (unknown) mild anemia but improved from her prior with H+H of 11.5 and 35.3, no evidence (units unknown) (unknown) (unknown) (no date) (unknown) (unknown) months. She denies any recent injuries, denies chance of , denies any (units unknown) (unknown) (unknown) (no date) (unknown) (unknown) nausea vomiting or abdominal pain at this time. Denies any vomiting home or (units unknown) (unknown) (unknown) (no date) (unknown) (unknown) number of children: 1 (units unknown) (unknown) (unknown) (no date) (unknown) (unknown) numbness (units unknown) (unknown) (unknown) (no date) (unknown) (unknown) occupational status: employed (units unknown) (unknown) (unknown) (no date) (unknown) (unknown) of bleeding anywhere , CMP (units unknown) (unknown) (unknown) (no date) (unknown) (unknown) on her EKG, patient is alert and oriented x3, complaining of feeling poorly and (units unknown) (unknown) (unknown) (no date) (unknown) (unknown) ondansetron 4 mg disintegrating 4 mg PO Q6H PRN nausea and 06/12/22 (units unknown) (unknown) (unknown) (no date) (unknown) (unknown) ondansetron 4 mg disintegrating 4 mg PO Q8H PRN nausea and 01/01/20 (units unknown) (unknown) (unknown) (no date) (unknown) (unknown) ondansetron 4 mg disintegrating 4 mg PO Q8H PRN nausea and 02/05/20 (units unknown) (unknown) (unknown) (no date) (unknown) (unknown) ondansetron 4 mg tablet,disintegrating (units unknown) (unknown) (unknown) (no date) (unknown) (unknown) ordered p.o. Ativan for her symptoms and ask our into call lab to come up and (units unknown) (unknown) (unknown) (no date) (unknown) (unknown) other ingestions, is pleasant, seeking help with her intoxication and wishes to (units unknown) (unknown) (unknown) (no date) (unknown) (unknown) patient's is at the bedside offering support, she raises nausea, another (units unknown) (unknown) (unknown) (no date) (unknown) (unknown) prenat.vits,otis,min- i thang-folic 1 tab PO DAILY 12/30/19 07/03/20 (units unknown) (unknown) (unknown) (no date) (unknown) (unknown) prenat.vits,otis,min- i thang-folic Tablet (units unknown) (unknown) (unknown) (no date) (unknown) (unknown) relapsed due to a divorce with her . She used to be a frequent visitor (units unknown) (unknown) (unknown) (no date) (unknown) (unknown) resting comfortably, currently pursuing placement at [facility] (units unknown) (unknown) (unknown) (no date) (unknown) (unknown) scores of 10 or less by 4 hours a piece and must also have blood (units unknown) (unknown) (unknown) (no date) (unknown) (unknown) second hand exposure : No (growing up as a child - not currently) (units unknown) (unknown) (unknown) (no date) (unknown) (unknown) significant tremor o r tongue fasciculation, she has a mild tremor with her arms (units unknown) (unknown) (unknown) (no date) (unknown) (unknown) social work and orders are pending (units unknown) (unknown) (unknown) (no date) (unknown) (unknown) special renee needs: No (units unknown) (unknown) (unknown) (no date) (unknown) (unknown) substance abuse, alcohol intoxication, psychosis, mood disorder, depression (units unknown) (unknown) (unknown) (no date) (unknown) (unknown) substance use type: does not use (units unknown) (unknown) (unknown) (no date) (unknown) (unknown) tablet vomiting #14 tabs (units unknown) (unknown) (unknown) (no date) (unknown) (unknown) tablet vomiting #20 tabs (units unknown) (unknown) (unknown) (no date) (unknown) (unknown) tablet vomiting #30 tabs (units unknown) (unknown) (unknown) (no date) (unknown) (unknown) tenderness or exquisite tenderness with exam. (units unknown) (unknown) (unknown) (no date) (unknown) (unknown) that she drinks vodk a and admits to drinking heavily today, states that she took (units unknown) (unknown) (unknown) (no date) (unknown) (unknown) the bottle upside down and started checking from it. She states that she drank (units unknown) (unknown) (unknown) (no date) (unknown) (unknown) thyroid studies are still pending. No significant findings to her CMP. No (units unknown) (unknown) (unknown) (no date) (unknown) (unknown) tramadol 50 mg table t 50 mg PO Q6H PRN pain #10 tabs 06/12/22 (units unknown) (unknown) (unknown) (no date) (unknown) (unknown) tramadol 50 mg tablet (units unknown) (unknown) (unknown) (no date) (unknown) (unknown) tremors, no tachycardia, her CIWA is currently 10, ordered another p.o. dose of (units unknown) (unknown) (unknown) (no date) (unknown) (unknown) urgency or flank pain, endorses nausea without vomiting. Patient has been to (units unknown) (unknown) (unknown) (no date) (unknown) (unknown) well as prior record s if available. (units unknown) (unknown) (unknown) (no date) (unknown) (unknown) wheezing, stridor, o r abnormal breath sounds. No retractions or tachypnea. (units unknown) (unknown) (unknown) (no date) (unknown) (unknown) withdrawal. Patient states that she takes Seroquel 300 mg at night as well as (units unknown) (unknown) Result panel [id number] (unknown) (no date) (unknown) (unknown) (no value) (units unknown) (unknown) (unknown) (no date) (unknown) (unknown) <[email or web address] Do - Last Filed: 07/12/22 20:27> (units unknown) (unknown) (unknown) (no date) (unknown) (unknown) <Reinaldo Arthur DO - Last Filed: 07/13/22 06:03> (units unknown) (unknown) (unknown) (no date) (unknown) (unknown) (1-3) #30 tabs (units unknown) (unknown) (unknown) (no date) (unknown) (unknown) (Benadryl) caps (units unknown) (unknown) (unknown) (no date) (unknown) (unknown) (Colace) (units unknown) (unknown) (unknown) (no date) (unknown) (unknown) (Tylenol) (units unknown) (unknown) (unknown) (no date) (unknown) (unknown) [id number] (units unknown) (unknown) (unknown) (no date) (unknown) (unknown) 01:28 07/13/22 (units unknown) (unknown) (unknown) (no date) (unknown) (unknown) 01:50 (units unknown) (unknown) (unknown) (no date) (unknown) (unknown) 02:00 07/13/22 (units unknown) (unknown) (unknown) (no date) (unknown) (unknown) 02:14 07/13/22 (units unknown) (unknown) (unknown) (no date) (unknown) (unknown) 02:14 (units unknown) (unknown) (unknown) (no date) (unknown) (unknown) 02:30 (units unknown) (unknown) (unknown) (no date) (unknown) (unknown) 07/12/22 07/12/22 07/12/22 Range/Units (units unknown) (unknown) (unknown) (no date) (unknown) (unknown) 07/12/22 19:15 (units unknown) (unknown) (unknown) (no date) (unknown) (unknown) 07/12/22 (units unknown) (unknown) (unknown) (no date) (unknown) (unknown) 07/13/22 (units unknown) (unknown) (unknown) (no date) (unknown) (unknown) 0530 -patient beginning to feel a bit agitated and restless, she is tachycardic. (units unknown) (unknown) (unknown) (no date) (unknown) (unknown) 1 tab PO DAILY (units unknown) (unknown) (unknown) (no date) (unknown) (unknown) 100 mg PO BID Qty: 3 0 0RF (units unknown) (unknown) (unknown) (no date) (unknown) (unknown) 16:32 16:32 16:32 (units unknown) (unknown) (unknown) (no date) (unknown) (unknown) 1836 patient still does not have an IV, has not received any IV fluid her (units unknown) (unknown) (unknown) (no date) (unknown) (unknown) 1900 still no IV, patient is p.o. challenging, she received her p.o. lorazepam, (units unknown) (unknown) (unknown) (no date) (unknown) (unknown) 1930, patient now feels depressed, she is lying in bed, feeling bad, has (units unknown) (unknown) (unknown) (no date) (unknown) (unknown) 19:15 19:15 19:15 (units unknown) (unknown) (unknown) (no date) (unknown) (unknown) 1999 patient is feeling better now, her lab work is starting to return and ETOH (units unknown) (unknown) (unknown) (no date) (unknown) (unknown) 2002 patient request s to take her home dosing of Seroquel 300 mg, this is (units unknown) (unknown) (unknown) (no date) (unknown) (unknown) 2022 with similar symptoms. She comes in complaining of needing help, states (units unknown) (unknown) (unknown) (no date) (unknown) (unknown) 2199 -smoker point called back and states that patient must have free CIWA (units unknown) (unknown) (unknown) (no date) (unknown) (unknown) 23:30 07/13/22 (units unknown) (unknown) (unknown) (no date) (unknown) (unknown) 25 mg PO BEDTIME PRN (Reason: insomnia) Qty: 20 0RF (units unknown) (unknown) (unknown) (no date) (unknown) (unknown) 325 mg PO Q6H PRN (Reason: pain) Qty: 20 0RF (units unknown) (unknown) (unknown) (no date) (unknown) (unknown) 4 Zofran was ordered . So has not been given, patient is signed out to (units unknown) (unknown) (unknown) (no date) (unknown) (unknown) 4 mg PO Q6H PRN (Reason: nausea and vomiting) Qty: 14 0RF (units unknown) (unknown) (unknown) (no date) (unknown) (unknown) 4 mg PO Q8H PRN (Reason: nausea and vomiting) Qty: 20 0RF (units unknown) (unknown) (unknown) (no date) (unknown) (unknown) 4 mg PO Q8H PRN (Reason: nausea and vomiting) Qty: 30 0RF (units unknown) (unknown) (unknown) (no date) (unknown) (unknown) 50 mg PO Q6H PRN (Reason: pain) Qty: 10 0RF (units unknown) (unknown) (unknown) (no date) (unknown) (unknown) 600 mg PO Q6HR PRN (Reason: Pain, Mild (1-3)) Qty: 30 0RF (units unknown) (unknown) (unknown) (no date) (unknown) (unknown) 750 mL of time. She just she has nothing to do but relapsed. This 3 weeks ago (units unknown) (unknown) (unknown) (no date) (unknown) (unknown) 9 points (units unknown) (unknown) (unknown) (no date) (unknown) (unknown) ALT (<35) IU/L (units unknown) (unknown) (unknown) (no date) (unknown) (unknown) ALT 21 (<35) IU/L (units unknown) (unknown) (unknown) (no date) (unknown) (unknown) AST (14-36) IU/L (units unknown) (unknown) (unknown) (no date) (unknown) (unknown) AST 67 H (14-36) IU/L (units unknown) (unknown) (unknown) (no date) (unknown) (unknown) Acetaminophen < 10 (10-30) ug/mL (units unknown) (unknown) (unknown) (no date) (unknown) (unknown) Acetaminophen (10-30 ) ug/mL (units unknown) (unknown) (unknown) (no date) (unknown) (unknown) Acute cystitis (units unknown) (unknown) (unknown) (no date) (unknown) (unknown) Admin: 07/12/22 19:4 7 Dose: 500 mg (units unknown) (unknown) (unknown) (no date) (unknown) (unknown) Age/Sex: 31 / F (units unknown) (unknown) (unknown) (no date) (unknown) (unknown) Agitation ?> 2 = (More severe symptoms) (units unknown) (unknown) (unknown) (no date) (unknown) (unknown) Albumin (3.5-5.0) g/dL (units unknown) (unknown) (unknown) (no date) (unknown) (unknown) Albumin 4.3 (3.5-5.0 ) g/dL (units unknown) (unknown) (unknown) (no date) (unknown) (unknown) Albumin/Globulin Ratio (1.0-2.8) (units unknown) (unknown) (unknown) (no date) (unknown) (unknown) Albumin/Globulin Ratio 1.4 (1.0-2.8) (units unknown) (unknown) (unknown) (no date) (unknown) (unknown) Alcohol use disorder (units unknown) (unknown) (unknown) (no date) (unknown) (unknown) Alcoholism (units unknown) (unknown) (unknown) (no date) (unknown) (unknown) Alkaline Phosphatase (38-126) U/L (units unknown) (unknown) (unknown) (no date) (unknown) (unknown) Alkaline Phosphatase 98 (38-126) U/L (units unknown) (unknown) (unknown) (no date) (unknown) (unknown) Allergies (units unknown) (unknown) (unknown) (no date) (unknown) (unknown) Allergy/AdvReac Type Severity Reaction Status Date / Time (units unknown) (unknown) (unknown) (no date) (unknown) (unknown) Anemia (-2018) (units unknown) (unknown) (unknown) (no date) (unknown) (unknown) Anxiety ?> 2 = (More severe symptoms) (units unknown) (unknown) (unknown) (no date) (unknown) (unknown) Auditory disturbance s ?> 1 = Very mild harshness or ability to frighten (units unknown) (unknown) (unknown) (no date) (unknown) (unknown) BUN (7-17) mg/dL (units unknown) (unknown) (unknown) (no date) (unknown) (unknown) BUN 9 (7-17) mg/dL (units unknown) (unknown) (unknown) (no date) (unknown) (unknown) BUN/Creatinine Ratio (6-22) (units unknown) (unknown) (unknown) (no date) (unknown) (unknown) BUN/Creatinine Ratio 11.0 (6-22) (units unknown) (unknown) (unknown) (no date) (unknown) (unknown) Baso # (Auto) (0-100 ) /uL (units unknown) (unknown) (unknown) (no date) (unknown) (unknown) Baso # (Auto) 0 (0-100) /uL (units unknown) (unknown) (unknown) (no date) (unknown) (unknown) Baso % (Auto) (0-2) % (units unknown) (unknown) (unknown) (no date) (unknown) (unknown) Baso % (Auto) 0.9 (0-2) % (units unknown) (unknown) (unknown) (no date) (unknown) (unknown) Bedside Urine Bilirubin - Negative (units unknown) (unknown) (unknown) (no date) (unknown) (unknown) Bedside Urine Glucos e Negative (units unknown) (unknown) (unknown) (no date) (unknown) (unknown) Bedside Urine Ketone - Negative (units unknown) (unknown) (unknown) (no date) (unknown) (unknown) Bedside Urine Leukocytes - Negative (units unknown) (unknown) (unknown) (no date) (unknown) (unknown) Bedside Urine Nitrit e + Positive (units unknown) (unknown) (unknown) (no date) (unknown) (unknown) Bedside Urine Occult Blood - Negative (units unknown) (unknown) (unknown) (no date) (unknown) (unknown) Bedside Urine Protei n - Negative (units unknown) (unknown) (unknown) (no date) (unknown) (unknown) Bedside Urine Urobilinogen - Negative (units unknown) (unknown) (unknown) (no date) (unknown) (unknown) Bedside Urine pH 6.0 (units unknown) (unknown) (unknown) (no date) (unknown) (unknown) Blood Pressure 102/5 9 L (units unknown) (unknown) (unknown) (no date) (unknown) (unknown) Blood Pressure 112/6 2 07/12/22 16:10 (units unknown) (unknown) (unknown) (no date) (unknown) (unknown) Blood Pressure 99/58 L (units unknown) (unknown) (unknown) (no date) (unknown) (unknown) Blood Pressure [Left Arm] 95/53 L (units unknown) (unknown) (unknown) (no date) (unknown) (unknown) Blood Pressure [Left Arm] (units unknown) (unknown) (unknown) (no date) (unknown) (unknown) Blood Pressure (units unknown) (unknown) (unknown) (no date) (unknown) (unknown) CIWA is now worse an d she has tremors, anxiety is worsening and agitation, (units unknown) (unknown) (unknown) (no date) (unknown) (unknown) CIWA-Ar for Alcohol Withdrawal from [email or web address] on 07/12/2022 (units unknown) (unknown) (unknown) (no date) (unknown) (unknown) Calcium (8.4-10.2) mg/dL (units unknown) (unknown) (unknown) (no date) (unknown) (unknown) Calcium 8.0 L (8.4-10.2) mg/dL (units unknown) (unknown) (unknown) (no date) (unknown) (unknown) Carbon Dioxide (22-32) mmol/L (units unknown) (unknown) (unknown) (no date) (unknown) (unknown) Carbon Dioxide 23 (22-32) mmol/L (units unknown) (unknown) (unknown) (no date) (unknown) (unknown) Cardiovascular: Tachycardic rate and rhythm, no peripheral edema, warm (units unknown) (unknown) (unknown) (no date) (unknown) (unknown) Cephalexin HCl (Cephalexin 250 Mg Capsule) 500 mg PO Q6H SANDY (units unknown) (unknown) (unknown) (no date) (unknown) (unknown) Chief Complaint: Alcohol intoxication, seeking detox (units unknown) (unknown) (unknown) (no date) (unknown) (unknown) Chief Complaint: Toxicology Problem (units unknown) (unknown) (unknown) (no date) (unknown) (unknown) Chloride (98-107) mmol/L (units unknown) (unknown) (unknown) (no date) (unknown) (unknown) Chloride 104 (98-107 ) mmol/L (units unknown) (unknown) (unknown) (no date) (unknown) (unknown) Clinical Impression: (units unknown) (unknown) (unknown) (no date) (unknown) (unknown) Clinical decision rules or scores evaluated: CIWA of 9 at 1753 (units unknown) (unknown) (unknown) (no date) (unknown) (unknown) Course of care: Patient is a difficult IV stick, ordered IV with lab work, (units unknown) (unknown) (unknown) (no date) (unknown) (unknown) Course (units unknown) (unknown) (unknown) (no date) (unknown) (unknown) Creatinine (0.52-1.04) mg/dL (units unknown) (unknown) (unknown) (no date) (unknown) (unknown) Creatinine 0.82 (0.52-1.04) mg/dL (units unknown) (unknown) (unknown) (no date) (unknown) (unknown) Samantha Arthur gave her grilled cheese, soup, some juice and encouraged her to stay (units unknown) (unknown) (unknown) (no date) (unknown) (unknown) : 1990 Acct:[id number] (units unknown) (unknown) (unknown) (no date) (unknown) (unknown) Date of Service: 07/12/22 (units unknown) (unknown) (unknown) (no date) (unknown) (unknown) Departure (units unknown) (unknown) (unknown) (no date) (unknown) (unknown) Differential diagnoses include but are not limited to: Alcohol withdrawal, (units unknown) (unknown) (unknown) (no date) (unknown) (unknown) Discharge Plan (units unknown) (unknown) (unknown) (no date) (unknown) (unknown) Discontinued Medications (units unknown) (unknown) (unknown) (no date) (unknown) (unknown) Documented By: AP (units unknown) (unknown) (unknown) (no date) (unknown) (unknown) Documented By: KB (units unknown) (unknown) (unknown) (no date) (unknown) (unknown) Documented By: OW (units unknown) (unknown) (unknown) (no date) (unknown) (unknown) ECG Data (units unknown) (unknown) (unknown) (no date) (unknown) (unknown) EKG independently reviewed by myself at 1830 reveals normal sinus rhythm at 72 (units unknown) (unknown) (unknown) (no date) (unknown) (unknown) ER Physician: Reinaldo Arthur D.O. (units unknown) (unknown) (unknown) (no date) (unknown) (unknown) Emergency Report (units unknown) (unknown) (unknown) (no date) (unknown) (unknown) Eos # (Auto) (0-450) /uL (units unknown) (unknown) (unknown) (no date) (unknown) (unknown) Eos # (Auto) 0 (0-450) /uL (units unknown) (unknown) (unknown) (no date) (unknown) (unknown) Eos % (Auto) (2-4) % (units unknown) (unknown) (unknown) (no date) (unknown) (unknown) Eos % (Auto) 0.3 L (2-4) % (units unknown) (unknown) (unknown) (no date) (unknown) (unknown) Esterase (units unknown) (unknown) (unknown) (no date) (unknown) (unknown) Estimated GFR > 60 (>60) mL/min (units unknown) (unknown) (unknown) (no date) (unknown) (unknown) Estimated GFR (>60) mL/min (units unknown) (unknown) (unknown) (no date) (unknown) (unknown) Ethyl Alcohol ( - 10 ) mg/dL (units unknown) (unknown) (unknown) (no date) (unknown) (unknown) Ethyl Alcohol 338 H ( - 10) mg/dL (units unknown) (unknown) (unknown) (no date) (unknown) (unknown) Exam Narrative: (units unknown) (unknown) (unknown) (no date) (unknown) (unknown) Exam (units unknown) (unknown) (unknown) (no date) (unknown) (unknown) Family History (units unknown) (unknown) (unknown) (no date) (unknown) (unknown) Family/Other Alcoholism (units unknown) (unknown) (unknown) (no date) (unknown) (unknown) Family/Other Diabete s mellitus (units unknown) (unknown) (unknown) (no date) (unknown) (unknown) Father Alcoholism (units unknown) (unknown) (unknown) (no date) (unknown) (unknown) Tonia Schneider MD [Primary Care Provider] (units unknown) (unknown) (unknown) (no date) (unknown) (unknown) Folic Acid (Folic Acid 1 Mg Tablet) 1 mg PO DAILY SANDY (units unknown) (unknown) (unknown) (no date) (unknown) (unknown) Free T4 (0.78-2.19) ng/dL (units unknown) (unknown) (unknown) (no date) (unknown) (unknown) Free T4 0.93 (0.78-2.19) ng/dL (units unknown) (unknown) (unknown) (no date) (unknown) (unknown) GI: abdomen soft, nontender to palpation, nondistended, without masses, rebound (units unknown) (unknown) (unknown) (no date) (unknown) (unknown) General (units unknown) (unknown) (unknown) (no date) (unknown) (unknown) General: cooperative , comfortable, in no acute distress, well groomed, appears (units unknown) (unknown) (unknown) (no date) (unknown) (unknown) Globulin (1.7-4.1) g/dL (units unknown) (unknown) (unknown) (no date) (unknown) (unknown) Globulin 3.0 (1.7-4.1) g/dL (units unknown) (unknown) (unknown) (no date) (unknown) (unknown) Glucose (70-100) mg/dL (units unknown) (unknown) (unknown) (no date) (unknown) (unknown) Glucose 111 H (70-100) mg/dL (units unknown) (unknown) (unknown) (no date) (unknown) (unknown) Grandfather Smoker (units unknown) (unknown) (unknown) (no date) (unknown) (unknown) Grandfather Unknown whether patient has any health problems (units unknown) (unknown) (unknown) (no date) (unknown) (unknown) Grandmother Diabetes mellitus (units unknown) (unknown) (unknown) (no date) (unknown) (unknown) Grandmother Hypoglycemia (units unknown) (unknown) (unknown) (no date) (unknown) (unknown) H/O dilation and curettage (-12/14/16) (units unknown) (unknown) (unknown) (no date) (unknown) (unknown) H/O wisdom tooth extraction () (units unknown) (unknown) (unknown) (no date) (unknown) (unknown) HEENT: symmetrical facial expressions, dry mucous membranes (units unknown) (unknown) (unknown) (no date) (unknown) (unknown) HPI - Alcohol (units unknown) (unknown) (unknown) (no date) (unknown) (unknown) HPI narrative: (units unknown) (unknown) (unknown) (no date) (unknown) (unknown) Hct (36-46) % (units unknown) (unknown) (unknown) (no date) (unknown) (unknown) Hct 35.3 L (36-46) % (units unknown) (unknown) (unknown) (no date) (unknown) (unknown) Headache/fullness in head ?> 1 = Very mild (units unknown) (unknown) (unknown) (no date) (unknown) (unknown) Hematuria presence: without hematuria Qualified Code(s): N30.00 - Acute (units unknown) (unknown) (unknown) (no date) (unknown) (unknown) Hgb (12.0-16.0) g/dL (units unknown) (unknown) (unknown) (no date) (unknown) (unknown) Hgb 11.5 L (12.0-16.0) g/dL (units unknown) (unknown) (unknown) (no date) (unknown) (unknown) History of Present Illness (units unknown) (unknown) (unknown) (no date) (unknown) (unknown) Home Medications (units unknown) (unknown) (unknown) (no date) (unknown) (unknown) I have independently reviewed the patient's vital signs and nursing notes as (units unknown) (unknown) (unknown) (no date) (unknown) (unknown) INPUTS: (units unknown) (unknown) (unknown) (no date) (unknown) (unknown) Independent historian: Patient (units unknown) (unknown) (unknown) (no date) (unknown) (unknown) Initial Vital Signs (units unknown) (unknown) (unknown) (no date) (unknown) (unknown) Initial Vital Signs: (units unknown) (unknown) (unknown) (no date) (unknown) (unknown) Insomnia (units unknown) (unknown) (unknown) (no date) (unknown) (unknown) Interpretation: (units unknown) (unknown) (unknown) (no date) (unknown) (unknown) [address] [address] (units unknown) (unknown) (unknown) (no date) (unknown) (unknown) Lab Data (units unknown) (unknown) (unknown) (no date) (unknown) (unknown) Lab Results (units unknown) (unknown) (unknown) (no date) (unknown) (unknown) Labs: (units unknown) (unknown) (unknown) (no date) (unknown) (unknown) Last Admin: 07/12/22 18:39 Dose: 4 mg (units unknown) (unknown) (unknown) (no date) (unknown) (unknown) Last Admin: 07/12/22 18:40 Dose: 1 mg (units unknown) (unknown) (unknown) (no date) (unknown) (unknown) Last Admin: 07/12/22 18:56 Dose: Not Given (units unknown) (unknown) (unknown) (no date) (unknown) (unknown) Last Admin: 07/12/22 19:48 Dose: 2 mg (units unknown) (unknown) (unknown) (no date) (unknown) (unknown) Last Admin: 07/12/22 19:49 Dose: 100 mg (units unknown) (unknown) (unknown) (no date) (unknown) (unknown) Last Admin: 07/13/22 02:11 Dose: 500 mg (units unknown) (unknown) (unknown) (no date) (unknown) (unknown) Last Admin: 07/13/22 03:36 Dose: 2 mg (units unknown) (unknown) (unknown) (no date) (unknown) (unknown) Last Admin: 07/13/22 06:01 Dose: Not Given (units unknown) (unknown) (unknown) (no date) (unknown) (unknown) Librium but she does not have this medicine with her, she only has the Seroquel. (units unknown) (unknown) (unknown) (no date) (unknown) (unknown) Lorazepam (Lorazepam 0.5 Mg Tablet) 1 mg PO NOW ONE (units unknown) (unknown) (unknown) (no date) (unknown) (unknown) Lorazepam (Lorazepam 0.5 Mg Tablet) 2 mg PO NOW ONE (units unknown) (unknown) (unknown) (no date) (unknown) (unknown) Lorazepam (Lorazepam 2 Mg/Ml Inj) 2 mg IV NOW ONE (units unknown) (unknown) (unknown) (no date) (unknown) (unknown) Lymph # (Auto) (7543-8095) /uL (units unknown) (unknown) (unknown) (no date) (unknown) (unknown) Lymph # (Auto) 1700 (7822-8918) /uL (units unknown) (unknown) (unknown) (no date) (unknown) (unknown) Lymph % (Auto) (25-40) % (units unknown) (unknown) (unknown) (no date) (unknown) (unknown) Lymph % (Auto) 50.6 H (25-40) % (units unknown) (unknown) (unknown) (no date) (unknown) (unknown) MCH (26-34) PG (units unknown) (unknown) (unknown) (no date) (unknown) (unknown) MCH 26.0 (26-34) PG (units unknown) (unknown) (unknown) (no date) (unknown) (unknown) MCHC (30-36) % (units unknown) (unknown) (unknown) (no date) (unknown) (unknown) MCHC 32.7 (30-36) % (units unknown) (unknown) (unknown) (no date) (unknown) (unknown) MCV (80-100) fL (units unknown) (unknown) (unknown) (no date) (unknown) (unknown) MCV 79.5 L (80-100) fL (units unknown) (unknown) (unknown) (no date) (unknown) (unknown) MDM - Alcohol (units unknown) (unknown) (unknown) (no date) (unknown) (unknown) MDM Narrative (units unknown) (unknown) (unknown) (no date) (unknown) (unknown) MIPS: This encounter doesn't have any diagnosis' associated with MIPS criteria. (units unknown) (unknown) (unknown) (no date) (unknown) (unknown) MSK: moves all extremities, neurovascularly intact, no weakness, normal tone no (units unknown) (unknown) (unknown) (no date) (unknown) (unknown) Medical History (units unknown) (unknown) (unknown) (no date) (unknown) (unknown) Medical decision making narrative: (units unknown) (unknown) (unknown) (no date) (unknown) (unknown) Medication Instructions Recorded Confirmed (units unknown) (unknown) (unknown) (no date) (unknown) (unknown) Medication Instructions Recorded (units unknown) (unknown) (unknown) (no date) (unknown) (unknown) Menometrorrhagia (units unknown) (unknown) (unknown) (no date) (unknown) (unknown) Mode of arrival: Ambulatory (units unknown) (unknown) (unknown) (no date) (unknown) (unknown) [place] # (Auto) (0-900 ) /uL (units unknown) (unknown) (unknown) (no date) (unknown) (unknown) [place] # (Auto) 100 (0-900) /uL (units unknown) (unknown) (unknown) (no date) (unknown) (unknown) [place] % (Auto) (3-14) % (units unknown) (unknown) (unknown) (no date) (unknown) (unknown) [place] % (Auto) 2.7 L (3-14) % (units unknown) (unknown) (unknown) (no date) (unknown) (unknown) Mother Diabetes mellitus (units unknown) (unknown) (unknown) (no date) (unknown) (unknown) Narrative (units unknown) (unknown) (unknown) (no date) (unknown) (unknown) Nausea/vomiting ?> 0 = No nausea and no vomiting (units unknown) (unknown) (unknown) (no date) (unknown) (unknown) Neuro: normal speech and cognition, A+O x3, ambulatory, clear speech (units unknown) (unknown) (unknown) (no date) (unknown) (unknown) Neut # (Auto) ([id number]) /uL (units unknown) (unknown) (unknown) (no date) (unknown) (unknown) Neut # (Auto) 1500 ([id number]) /uL (units unknown) (unknown) (unknown) (no date) (unknown) (unknown) Neut % (Auto) (50-75 ) % (units unknown) (unknown) (unknown) (no date) (unknown) (unknown) Neut % (Auto) 45.5 L (50-75) % (units unknown) (unknown) (unknown) (no date) (unknown) (unknown) No Action (units unknown) (unknown) (unknown) (no date) (unknown) (unknown) Obesity (units unknown) (unknown) (unknown) (no date) (unknown) (unknown) Ondansetron HCl (Ondansetron 4 Mg Odt) 4 mg SL NOW ONE (units unknown) (unknown) (unknown) (no date) (unknown) (unknown) Ondansetron HCl (Ondansetron 4 Mg/2 Ml Inj) 4 mg IV Q6HR PRN (units unknown) (unknown) (unknown) (no date) (unknown) (unknown) Ordered: (units unknown) (unknown) (unknown) (no date) (unknown) (unknown) Orders (units unknown) (unknown) (unknown) (no date) (unknown) (unknown) Orientation/clouding of sensorium ?> 0 = Oriented, can do serial additions (units unknown) (unknown) (unknown) (no date) (unknown) (unknown) Over the course of the night we have called various other facilities and they (units unknown) (unknown) (unknown) (no date) (unknown) (unknown) Overweight (units unknown) (unknown) (unknown) (no date) (unknown) (unknown) Oxygen Delivery Method Room Air 07/12/22 16:10 (units unknown) (unknown) (unknown) (no date) (unknown) (unknown) Oxygen Delivery Method Room Air Room Air (units unknown) (unknown) (unknown) (no date) (unknown) (unknown) Oxygen Delivery Method (units unknown) (unknown) (unknown) (no date) (unknown) (unknown) PRN Reason: Nausea And Vomiting (units unknown) (unknown) (unknown) (no date) (unknown) (unknown) Paroxysmal sweats ?> 0 = No sweat visible (units unknown) (unknown) (unknown) (no date) (unknown) (unknown) Patient [facility] (units unknown) (unknown) (unknown) (no date) (unknown) (unknown) Patient History (units unknown) (unknown) (unknown) (no date) (unknown) (unknown) Patient has allergy to Reglan and hydrocodone. She denies urinary frequency, (units unknown) (unknown) (unknown) (no date) (unknown) (unknown) Patient's CIWA at 2020 is 12, I ordered for her 2 more mg of lorazepam p.o., (units unknown) (unknown) (unknown) (no date) (unknown) (unknown) Patient: Sarah Connors MR#: M (units unknown) (unknown) (unknown) (no date) (unknown) (unknown) Patients with scores >= may require medication for withdrawal. (units unknown) (unknown) (unknown) (no date) (unknown) (unknown) Pertinent lab findings reviewed: CBC is pertinent for mild leukopenia of 3.3, (units unknown) (unknown) (unknown) (no date) (unknown) (unknown) Plt Count (150-400) X103/uL (units unknown) (unknown) (unknown) (no date) (unknown) (unknown) Plt Count 226 (150-400) X103/uL (units unknown) (unknown) (unknown) (no date) (unknown) (unknown) Point of Care Testing (units unknown) (unknown) (unknown) (no date) (unknown) (unknown) Potassium (3.4-5.1) mmol/L (units unknown) (unknown) (unknown) (no date) (unknown) (unknown) Potassium 3.9 (3.4-5.1) mmol/L (units unknown) (unknown) (unknown) (no date) (unknown) (unknown) Test Results Negative (units unknown) (unknown) (unknown) (no date) (unknown) (unknown) Prescriptions: (units unknown) (unknown) (unknown) (no date) (unknown) (unknown) Previous Rx's (units unknown) (unknown) (unknown) (no date) (unknown) (unknown) Psych: mental status is intact, patient has a normal affect although she is (units unknown) (unknown) (unknown) (no date) (unknown) (unknown) Pulse Oximetry 97 100 (units unknown) (unknown) (unknown) (no date) (unknown) (unknown) Pulse Oximetry 98 97 96 (units unknown) (unknown) (unknown) (no date) (unknown) (unknown) Pulse Oximetry 99 07/12/22 16:10 (units unknown) (unknown) (unknown) (no date) (unknown) (unknown) Pulse Oximetry 99 (units unknown) (unknown) (unknown) (no date) (unknown) (unknown) Pulse Rate 82 07/12/22 16:10 (units unknown) (unknown) (unknown) (no date) (unknown) (unknown) Pulse Rate 90 (units unknown) (unknown) (unknown) (no date) (unknown) (unknown) Pulse Rate 94 H 92 H 88 (units unknown) (unknown) (unknown) (no date) (unknown) (unknown) Pulse Rate 97 H 87 (units unknown) (unknown) (unknown) (no date) (unknown) (unknown) Qualifiers: (units unknown) (unknown) (unknown) (no date) (unknown) (unknown) Questions are addressed and there is agreement with the plan and for follow-up. (units unknown) (unknown) (unknown) (no date) (unknown) (unknown) RBC (4.0-5.2) X106/uL (units unknown) (unknown) (unknown) (no date) (unknown) (unknown) RBC 4.44 (4.0-5.2) X106/uL (units unknown) (unknown) (unknown) (no date) (unknown) (unknown) RDW (11.6-14.8) % (units unknown) (unknown) (unknown) (no date) (unknown) (unknown) RDW 17.3 H (11.6-14.8) % (units unknown) (unknown) (unknown) (no date) (unknown) (unknown) RESULT SUMMARY: (units unknown) (unknown) (unknown) (no date) (unknown) (unknown) ROS Unobtainable: Al l systems reviewed + are unremarkable except as noted in HPI (units unknown) (unknown) (unknown) (no date) (unknown) (unknown) Referrals: (units unknown) (unknown) (unknown) (no date) (unknown) (unknown) Related Data (units unknown) (unknown) (unknown) (no date) (unknown) (unknown) Respiratory Rate 14 07/12/22 16:10 (units unknown) (unknown) (unknown) (no date) (unknown) (unknown) Respiratory Rate 16 18 (units unknown) (unknown) (unknown) (no date) (unknown) (unknown) Respiratory Rate (units unknown) (unknown) (unknown) (no date) (unknown) (unknown) Respiratory: normal effort, able to speak in complete sentences, without (units unknown) (unknown) (unknown) (no date) (unknown) (unknown) Review of Systems (units unknown) (unknown) (unknown) (no date) (unknown) (unknown) Reviewed vitals sign s and nursing notes. (units unknown) (unknown) (unknown) (no date) (unknown) (unknown) S/P myringotomy with insertion of tube (units unknown) (unknown) (unknown) (no date) (unknown) (unknown) SARS-CoV-2 (PCR) (Negative) (units unknown) (unknown) (unknown) (no date) (unknown) (unknown) SARS-CoV-2 (PCR) Negative (Negative) (units unknown) (unknown) (unknown) (no date) (unknown) (unknown) (spontaneous vaginal delivery) (-09/05/18) (units unknown) (unknown) (unknown) (no date) (unknown) (unknown) Salicylates < 1.0 (<20) mg/dL (units unknown) (unknown) (unknown) (no date) (unknown) (unknown) Salicylates (<20) mg/dL (units unknown) (unknown) (unknown) (no date) (unknown) (unknown) She was given a couple water, a diet order was ordered however they may not (units unknown) (unknown) (unknown) (no date) (unknown) (unknown) Signed By: (units unknown) (unknown) (unknown) (no date) (unknown) (unknown) Skin: brisk capillar y refill, without pallor or erythema (units unknown) (unknown) (unknown) (no date) (unknown) (unknown) Smoker (units unknown) (unknown) (unknown) (no date) (unknown) (unknown) [place] in the past. She has been sober for a total of 18 (units unknown) (unknown) (unknown) (no date) (unknown) (unknown) Smoking Status: Former smoker (units unknown) (unknown) (unknown) (no date) (unknown) (unknown) Social History (units unknown) (unknown) (unknown) (no date) (unknown) (unknown) Social consideration s that may affect disposition: none (units unknown) (unknown) (unknown) (no date) (unknown) (unknown) Sodium (137-145) mmol/L (units unknown) (unknown) (unknown) (no date) (unknown) (unknown) Sodium 140 (137-145) mmol/L (units unknown) (unknown) (unknown) (no date) (unknown) (unknown) Sodium Chloride (Normal Saline 0.9%) 1,000 mls @ 1,000 mls/hr IV BOLUS ONE (units unknown) (unknown) (unknown) (no date) (unknown) (unknown) Source: patient (units unknown) (unknown) (unknown) (no date) (unknown) (unknown) Stated Complaint: Stress/Depression (units unknown) (unknown) (unknown) (no date) (unknown) (unknown) Stop: 07/12/22 17:33 (units unknown) (unknown) (unknown) (no date) (unknown) (unknown) Stop: 07/12/22 17:45 (units unknown) (unknown) (unknown) (no date) (unknown) (unknown) Stop: 07/12/22 18:28 (units unknown) (unknown) (unknown) (no date) (unknown) (unknown) Stop: 07/12/22 18:31 (units unknown) (unknown) (unknown) (no date) (unknown) (unknown) Stop: 07/12/22 19:25 (units unknown) (unknown) (unknown) (no date) (unknown) (unknown) Stop: 07/12/22 20:03 (units unknown) (unknown) (unknown) (no date) (unknown) (unknown) Stop: 07/12/22 20:17 (units unknown) (unknown) (unknown) (no date) (unknown) (unknown) Substance Use Type: does not use (units unknown) (unknown) (unknown) (no date) (unknown) (unknown) Surgical History (units unknown) (unknown) (unknown) (no date) (unknown) (unknown) TSH (0.47-4.68) uIU/mL (units unknown) (unknown) (unknown) (no date) (unknown) (unknown) TSH 1.24 (0.47-4.68) uIU/mL (units unknown) (unknown) (unknown) (no date) (unknown) (unknown) Tactile disturbances ?> 1 = Very mild itching, pin and needles, burning, or (units unknown) (unknown) (unknown) (no date) (unknown) (unknown) Temperature 97.2 F L 07/12/22 16:10 (units unknown) (unknown) (unknown) (no date) (unknown) (unknown) Thiamine HCl (Thiamine 100 Mg Tablet) 100 mg PO NOW ONE (units unknown) (unknown) (unknown) (no date) (unknown) (unknown) Thiamine HCl 200 mg/ Sodium (Chloride) 102 mls @ 408 mls/hr IV NOW ONE (units unknown) (unknown) (unknown) (no date) (unknown) (unknown) This is a 31-year-ol d female with history of alcohol abuse and appears to have (units unknown) (unknown) (unknown) (no date) (unknown) (unknown) Time Seen by Provider: 07/12/22 17:05 (units unknown) (unknown) (unknown) (no date) (unknown) (unknown) Total Bilirubin (0.2-1.3) mg/dL (units unknown) (unknown) (unknown) (no date) (unknown) (unknown) Total Bilirubin 0.4 (0.2-1.3) mg/dL (units unknown) (unknown) (unknown) (no date) (unknown) (unknown) Total Protein (6.3-8.2) g/dL (units unknown) (unknown) (unknown) (no date) (unknown) (unknown) Total Protein 7.3 (6.3-8.2) g/dL (units unknown) (unknown) (unknown) (no date) (unknown) (unknown) Tremor ?> 1 = Not visible, but can be felt fingertip to fingertip (units unknown) (unknown) (unknown) (no date) (unknown) (unknown) U Benzodiazepines Scrn (Negative) (units unknown) (unknown) (unknown) (no date) (unknown) (unknown) U Benzodiazepines Scrn Negative (Negative) (units unknown) (unknown) (unknown) (no date) (unknown) (unknown) U Marijuana (THC) Screen (Negative) (units unknown) (unknown) (unknown) (no date) (unknown) (unknown) U Marijuana (THC) Screen Negative (Negative) (units unknown) (unknown) (unknown) (no date) (unknown) (unknown) U Methamphetamines Scrn (Negative) (units unknown) (unknown) (unknown) (no date) (unknown) (unknown) U Methamphetamines Scrn Negative (Negative) (units unknown) (unknown) (unknown) (no date) (unknown) (unknown) U Opiates 300ng/mL cut (Negative) (units unknown) (unknown) (unknown) (no date) (unknown) (unknown) U Opiates 300ng/mL cut Negative (Negative) (units unknown) (unknown) (unknown) (no date) (unknown) (unknown) U Tricyclic Antidepress (Negative) (units unknown) (unknown) (unknown) (no date) (unknown) (unknown) U Tricyclic Antidepress Negative (Negative) (units unknown) (unknown) (unknown) (no date) (unknown) (unknown) Ur Amphetamines Screen (Negative) (units unknown) (unknown) (unknown) (no date) (unknown) (unknown) Ur Amphetamines Screen Negative (Negative) (units unknown) (unknown) (unknown) (no date) (unknown) (unknown) Ur Barbiturates Screen (Negative) (units unknown) (unknown) (unknown) (no date) (unknown) (unknown) Ur Barbiturates Screen Negative (Negative) (units unknown) (unknown) (unknown) (no date) (unknown) (unknown) Ur Culture Indicated ? Specimen cultured (units unknown) (unknown) (unknown) (no date) (unknown) (unknown) Ur Culture Indicated? (units unknown) (unknown) (unknown) (no date) (unknown) (unknown) Ur MDMA Scrn (Ecstasy) (Negative) (units unknown) (unknown) (unknown) (no date) (unknown) (unknown) Ur MDMA Scrn (Ecstasy) Negative (Negative) (units unknown) (unknown) (unknown) (no date) (unknown) (unknown) Ur Oxycodone Screen (Negative) (units unknown) (unknown) (unknown) (no date) (unknown) (unknown) Ur Oxycodone Screen Negative (Negative) (units unknown) (unknown) (unknown) (no date) (unknown) (unknown) Ur Phencyclidine Scr n (Negative) (units unknown) (unknown) (unknown) (no date) (unknown) (unknown) Ur Phencyclidine Scr n Negative (Negative) (units unknown) (unknown) (unknown) (no date) (unknown) (unknown) Ur Squamous Epith Cells (0-5/HPF) (units unknown) (unknown) (unknown) (no date) (unknown) (unknown) Ur Squamous Epith Cells 1-5 /hpf (0-5/HPF) (units unknown) (unknown) (unknown) (no date) (unknown) (unknown) Urine Bacteria (None) (units unknown) (unknown) (unknown) (no date) (unknown) (unknown) Urine Bacteria Many (>30) H (None) (units unknown) (unknown) (unknown) (no date) (unknown) (unknown) Urine Cocaine Screen (Negative) (units unknown) (unknown) (unknown) (no date) (unknown) (unknown) Urine Cocaine Screen Negative (Negative) (units unknown) (unknown) (unknown) (no date) (unknown) (unknown) Urine Dip (units unknown) (unknown) (unknown) (no date) (unknown) (unknown) Urine Methadone Screen (Negative) (units unknown) (unknown) (unknown) (no date) (unknown) (unknown) Urine Methadone Screen Negative (Negative) (units unknown) (unknown) (unknown) (no date) (unknown) (unknown) Urine RBC (0-5/HPF) (units unknown) (unknown) (unknown) (no date) (unknown) (unknown) Urine RBC 1-5/hpf (0-5/HPF) (units unknown) (unknown) (unknown) (no date) (unknown) (unknown) Urine Specific [place] 1.015 (units unknown) (unknown) (unknown) (no date) (unknown) (unknown) Urine WBC (0-5/HPF) (units unknown) (unknown) (unknown) (no date) (unknown) (unknown) Urine WBC 1-5/hpf (0-5/HPF) (units unknown) (unknown) (unknown) (no date) (unknown) (unknown) Urine microscopy wit h many bacteria, pending for culture, will treat for acute (units unknown) (unknown) (unknown) (no date) (unknown) (unknown) Visual disturbances ?> 1 = Very mild sensitivity (units unknown) (unknown) (unknown) (no date) (unknown) (unknown) Vital Signs - 8 hr (units unknown) (unknown) (unknown) (no date) (unknown) (unknown) Vital Signs (units unknown) (unknown) (unknown) (no date) (unknown) (unknown) Vital signs: (units unknown) (unknown) (unknown) (no date) (unknown) (unknown) WBC (4.5-11.0) X103/uL (units unknown) (unknown) (unknown) (no date) (unknown) (unknown) WBC 3.3 L (4.5-11.0) X103/uL (units unknown) (unknown) (unknown) (no date) (unknown) (unknown) [1900] ([place]) Patient received in sign out [facility] [employer]. I have reviewed the (units unknown) (unknown) (unknown) (no date) (unknown) (unknown) [Embedded Image Not Available] (units unknown) (unknown) (unknown) (no date) (unknown) (unknown) [METOCLOPRAMIDE] (units unknown) (unknown) (unknown) (no date) (unknown) (unknown) acceptable. She is nauseated, without vomiting, received Zofran previously and (units unknown) (unknown) (unknown) (no date) (unknown) (unknown) acetaminophen 325 mg tablet 325 mg PO Q6H PRN pain #20 tabs 02/05/20 (units unknown) (unknown) (unknown) (no date) (unknown) (unknown) acetaminophen [Tylenol] 325 mg tablet (units unknown) (unknown) (unknown) (no date) (unknown) (unknown) alcohol in 300s, she was last here in the emergency department in May of (units unknown) (unknown) (unknown) (no date) (unknown) (unknown) alcohol intake frequency: 3 or more drinks per day (units unknown) (unknown) (unknown) (no date) (unknown) (unknown) alcohol intake: former (units unknown) (unknown) (unknown) (no date) (unknown) (unknown) alcohol level below 0.08 to be considered for placement there. (units unknown) (unknown) (unknown) (no date) (unknown) (unknown) and below (units unknown) (unknown) (unknown) (no date) (unknown) (unknown) and she drinking daily since this happened. She wants rehab. She has been (units unknown) (unknown) (unknown) (no date) (unknown) (unknown) anxious, intoxicated and now withdrawing. pleasant and cooperative (units unknown) (unknown) (unknown) (no date) (unknown) (unknown) are currently no available beds. Patient resting comfortably (units unknown) (unknown) (unknown) (no date) (unknown) (unknown) arrhythmia, or acute ischemic changes. (units unknown) (unknown) (unknown) (no date) (unknown) (unknown) at extension and states that she feels symptoms of alcohol withdrawal. Denies (units unknown) (unknown) (unknown) (no date) (unknown) (unknown) being depressed at this time, CIWA is an 8. (units unknown) (unknown) (unknown) (no date) (unknown) (unknown) bpm with rightward axis and normal intervals. No STEMI, ST segment changes, (units unknown) (unknown) (unknown) (no date) (unknown) (unknown) clinical course and performed an independent history and physical exam. Patient (units unknown) (unknown) (unknown) (no date) (unknown) (unknown) current occupational exposures/hazards: Yes (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 with Pandemic ) (units unknown) (unknown) (unknown) (no date) (unknown) (unknown) cystitis without hematuria (units unknown) (unknown) (unknown) (no date) (unknown) (unknown) cystitis (units unknown) (unknown) (unknown) (no date) (unknown) (unknown) cystitis, she is p.o . tolerant, still pending lab work (units unknown) (unknown) (unknown) (no date) (unknown) (unknown) deliver since it is after 17:00 and the diet order was ordered at 17:30. [facility] (units unknown) (unknown) (unknown) (no date) (unknown) (unknown) detox 11 times, states that it has taking Antabuse, Librium, Ativan, she denies (units unknown) (unknown) (unknown) (no date) (unknown) (unknown) detox as well. (units unknown) (unknown) (unknown) (no date) (unknown) (unknown) diarrhea or current stool changes. (units unknown) (unknown) (unknown) (no date) (unknown) (unknown) diphenhydramine HCl 25 mg capsule 25 mg PO BEDTIME PRN insomnia #20 02/05/20 (units unknown) (unknown) (unknown) (no date) (unknown) (unknown) diphenhydramine HCl [Benadryl] 25 mg capsule (units unknown) (unknown) (unknown) (no date) (unknown) (unknown) docusate sodium 100 mg capsule 100 mg PO BID #30 caps 02/05/20 (units unknown) (unknown) (unknown) (no date) (unknown) (unknown) docusate sodium [Colace] 100 mg capsule (units unknown) (unknown) (unknown) (no date) (unknown) (unknown) draw her labs (units unknown) (unknown) (unknown) (no date) (unknown) (unknown) education level: college (units unknown) (unknown) (unknown) (no date) (unknown) (unknown) electrolyte abnormalities. 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[employer] (units unknown) (unknown) (unknown) (no date) (unknown) (unknown) fidgeting (units unknown) (unknown) (unknown) (no date) (unknown) (unknown) fluid, EtOH, and CIWA, ordered 2 mg of IV lorazepam for patient's symptoms, (units unknown) (unknown) (unknown) (no date) (unknown) (unknown) for alcohol related complaints through 2019, and she presented to the [facility] (units unknown) (unknown) (unknown) (no date) (unknown) (unknown) from social work is aware and pending her lab work to arrange for inpatient (units unknown) (unknown) (unknown) (no date) (unknown) (unknown) go to detox. She is currently intoxicated endorses symptoms of alcohol (units unknown) (unknown) (unknown) (no date) (unknown) (unknown) her urine microscopy came back positive for many bacteria, will treat for acute (units unknown) (unknown) (unknown) (no date) (unknown) (unknown) household members: spouse and children (units unknown) (unknown) (unknown) (no date) (unknown) (unknown) hydrated. (units unknown) (unknown) (unknown) (no date) (unknown) (unknown) hydrocodone [HYDROCODONE] AdvReac Unknown VOMITING Verified 07/12/22 16:18 (units unknown) (unknown) (unknown) (no date) (unknown) (unknown) ibuprofen 600 mg Tablet (units unknown) (unknown) (unknown) (no date) (unknown) (unknown) ibuprofen 600 mg tablet 600 mg PO Q6HR PRN Pain, Mild 07/04/20 (units unknown) (unknown) (unknown) (no date) (unknown) (unknown) intoxicated, pleasant, interactive and comfortable although active, anxious and (units unknown) (unknown) (unknown) (no date) (unknown) (unknown) is 338, COVID PCR wa s negative, drug screen is negative for all tested agents, (units unknown) (unknown) (unknown) (no date) (unknown) (unknown) is allergic to Reglan, will dose with another 5 mg of Zofran, no QT prolongation (units unknown) (unknown) (unknown) (no date) (unknown) (unknown) knowing if she is cox d phenobarbital in the past. (units unknown) (unknown) (unknown) (no date) (unknown) (unknown) limited history currently due to intoxication. She states that she is recently (units unknown) (unknown) (unknown) (no date) (unknown) (unknown) lorazepam at 2 mg fo r this. (units unknown) (unknown) (unknown) (no date) (unknown) (unknown) marital status: (units unknown) (unknown) (unknown) (no date) (unknown) (unknown) metoclopramide Allergy Mild RASH/HIVES Verified 07/12/22 16:18 (units unknown) (unknown) (unknown) (no date) (unknown) (unknown) mild anemia but improved from her prior with H+H of 11.5 and 35.3, no evidence (units unknown) (unknown) (unknown) (no date) (unknown) (unknown) months. She denies any recent injuries, denies chance of , denies any (units unknown) (unknown) (unknown) (no date) (unknown) (unknown) nausea vomiting or abdominal pain at this time. Denies any vomiting home or (units unknown) (unknown) (unknown) (no date) (unknown) (unknown) number of children: 1 (units unknown) (unknown) (unknown) (no date) (unknown) (unknown) numbness (units unknown) (unknown) (unknown) (no date) (unknown) (unknown) occupational status: employed (units unknown) (unknown) (unknown) (no date) (unknown) (unknown) of bleeding anywhere , CMP (units unknown) (unknown) (unknown) (no date) (unknown) (unknown) on her EKG, patient is alert and oriented x3, complaining of feeling poorly and (units unknown) (unknown) (unknown) (no date) (unknown) (unknown) ondansetron 4 mg disintegrating 4 mg PO Q6H PRN nausea and 06/12/22 (units unknown) (unknown) (unknown) (no date) (unknown) (unknown) ondansetron 4 mg disintegrating 4 mg PO Q8H PRN nausea and 01/01/20 (units unknown) (unknown) (unknown) (no date) (unknown) (unknown) ondansetron 4 mg disintegrating 4 mg PO Q8H PRN nausea and 02/05/20 (units unknown) (unknown) (unknown) (no date) (unknown) (unknown) ondansetron 4 mg tablet,disintegrating (units unknown) (unknown) (unknown) (no date) (unknown) (unknown) ordered p.o. Ativan for her symptoms and ask our into call lab to come up and (units unknown) (unknown) (unknown) (no date) (unknown) (unknown) other ingestions, is pleasant, seeking help with her intoxication and wishes to (units unknown) (unknown) (unknown) (no date) (unknown) (unknown) patient's is at the bedside offering support, she raises nausea, another (units unknown) (unknown) (unknown) (no date) (unknown) (unknown) prenat.vits,otis,min- i thang-folic 1 tab PO DAILY 12/30/19 07/03/20 (units unknown) (unknown) (unknown) (no date) (unknown) (unknown) prenat.vits,otis,min- i thang-folic Tablet (units unknown) (unknown) (unknown) (no date) (unknown) (unknown) relapsed due to a divorce with her . She used to be a frequent visitor (units unknown) (unknown) (unknown) (no date) (unknown) (unknown) resting comfortably, currently pursuing placement at [facility] (units unknown) (unknown) (unknown) (no date) (unknown) (unknown) scores of 10 or less by 4 hours a piece and must also have blood (units unknown) (unknown) (unknown) (no date) (unknown) (unknown) second hand exposure : No (growing up as a child - not currently) (units unknown) (unknown) (unknown) (no date) (unknown) (unknown) significant tremor o r tongue fasciculation, she has a mild tremor with her arms (units unknown) (unknown) (unknown) (no date) (unknown) (unknown) social work and orders are pending (units unknown) (unknown) (unknown) (no date) (unknown) (unknown) special renee needs: No (units unknown) (unknown) (unknown) (no date) (unknown) (unknown) substance abuse, alcohol intoxication, psychosis, mood disorder, depression (units unknown) (unknown) (unknown) (no date) (unknown) (unknown) substance use type: does not use (units unknown) (unknown) (unknown) (no date) (unknown) (unknown) tablet vomiting #14 tabs (units unknown) (unknown) (unknown) (no date) (unknown) (unknown) tablet vomiting #20 tabs (units unknown) (unknown) (unknown) (no date) (unknown) (unknown) tablet vomiting #30 tabs (units unknown) (unknown) (unknown) (no date) (unknown) (unknown) tenderness or exquisite tenderness with exam. (units unknown) (unknown) (unknown) (no date) (unknown) (unknown) that she drinks vodk a and admits to drinking heavily today, states that she took (units unknown) (unknown) (unknown) (no date) (unknown) (unknown) the bottle upside down and started checking from it. She states that she drank (units unknown) (unknown) (unknown) (no date) (unknown) (unknown) thyroid studies are still pending. No significant findings to her CMP. No (units unknown) (unknown) (unknown) (no date) (unknown) (unknown) tramadol 50 mg table t 50 mg PO Q6H PRN pain #10 tabs 06/12/22 (units unknown) (unknown) (unknown) (no date) (unknown) (unknown) tramadol 50 mg tablet (units unknown) (unknown) (unknown) (no date) (unknown) (unknown) tremors, no tachycardia, her CIWA is currently 10, ordered another p.o. dose of (units unknown) (unknown) (unknown) (no date) (unknown) (unknown) urgency or flank pain, endorses nausea without vomiting. Patient has been to (units unknown) (unknown) (unknown) (no date) (unknown) (unknown) well as prior record s if available. (units unknown) (unknown) (unknown) (no date) (unknown) (unknown) wheezing, stridor, o r abnormal breath sounds. No retractions or tachypnea. (units unknown) (unknown) (unknown) (no date) (unknown) (unknown) withdrawal. Patient states that she takes Seroquel 300 mg at night as well as (units unknown) (unknown) Result panel [id number] (unknown) (no date) (unknown) (unknown) (no value) (units unknown) (unknown) (unknown) (no date) (unknown) (unknown) <[email or web address] Do - Last Filed: 07/12/22 20:27> (units unknown) (unknown) (unknown) (no date) (unknown) (unknown) <Reinaldo Arthur DO - Last Filed: 07/13/22 06:08> (units unknown) (unknown) (unknown) (no date) (unknown) (unknown) (1-3) #30 tabs (units unknown) (unknown) (unknown) (no date) (unknown) (unknown) (Benadryl) caps (units unknown) (unknown) (unknown) (no date) (unknown) (unknown) (Colace) (units unknown) (unknown) (unknown) (no date) (unknown) (unknown) (Tylenol) (units unknown) (unknown) (unknown) (no date) (unknown) (unknown) [id number] (units unknown) (unknown) (unknown) (no date) (unknown) (unknown) 01:28 07/13/22 (units unknown) (unknown) (unknown) (no date) (unknown) (unknown) 01:50 (units unknown) (unknown) (unknown) (no date) (unknown) (unknown) 02:00 07/13/22 (units unknown) (unknown) (unknown) (no date) (unknown) (unknown) 02:14 07/13/22 (units unknown) (unknown) (unknown) (no date) (unknown) (unknown) 02:14 (units unknown) (unknown) (unknown) (no date) (unknown) (unknown) 02:30 (units unknown) (unknown) (unknown) (no date) (unknown) (unknown) 07/12/22 07/12/22 07/12/22 Range/Units (units unknown) (unknown) (unknown) (no date) (unknown) (unknown) 07/12/22 19:15 (units unknown) (unknown) (unknown) (no date) (unknown) (unknown) 07/12/22 (units unknown) (unknown) (unknown) (no date) (unknown) (unknown) 07/13/22 (units unknown) (unknown) (unknown) (no date) (unknown) (unknown) 0530 -patient beginning to feel a bit agitated and restless, she is tachycardic. (units unknown) (unknown) (unknown) (no date) (unknown) (unknown) 1 tab PO DAILY (units unknown) (unknown) (unknown) (no date) (unknown) (unknown) 100 mg PO BID Qty: 3 0 0RF (units unknown) (unknown) (unknown) (no date) (unknown) (unknown) 16:32 16:32 16:32 (units unknown) (unknown) (unknown) (no date) (unknown) (unknown) 1835 patient still does not have an IV, has not received any IV fluid her (units unknown) (unknown) (unknown) (no date) (unknown) (unknown) 1899 still no IV, patient is p.o. challenging, she received her p.o. lorazepam, (units unknown) (unknown) (unknown) (no date) (unknown) (unknown) 1929, patient now feels depressed, she is lying in bed, feeling bad, has (units unknown) (unknown) (unknown) (no date) (unknown) (unknown) 19:15 19:15 19:15 (units unknown) (unknown) (unknown) (no date) (unknown) (unknown) 1999 patient is feeling better now, her lab work is starting to return and ETOH (units unknown) (unknown) (unknown) (no date) (unknown) (unknown) 2002 patient request s to take her home dosing of Seroquel 300 mg, this is (units unknown) (unknown) (unknown) (no date) (unknown) (unknown) 2022 with similar symptoms. She comes in complaining of needing help, states (units unknown) (unknown) (unknown) (no date) (unknown) (unknown) 2200 -smoker point called back and states that patient must have free CIWA (units unknown) (unknown) (unknown) (no date) (unknown) (unknown) 23:30 07/13/22 (units unknown) (unknown) (unknown) (no date) (unknown) (unknown) 25 mg PO BEDTIME PRN (Reason: insomnia) Qty: 20 0RF (units unknown) (unknown) (unknown) (no date) (unknown) (unknown) 325 mg PO Q6H PRN (Reason: pain) Qty: 20 0RF (units unknown) (unknown) (unknown) (no date) (unknown) (unknown) 4 Zofran was ordered . So has not been given, patient is signed out to (units unknown) (unknown) (unknown) (no date) (unknown) (unknown) 4 mg PO Q6H PRN (Reason: nausea and vomiting) Qty: 14 0RF (units unknown) (unknown) (unknown) (no date) (unknown) (unknown) 4 mg PO Q8H PRN (Reason: nausea and vomiting) Qty: 20 0RF (units unknown) (unknown) (unknown) (no date) (unknown) (unknown) 4 mg PO Q8H PRN (Reason: nausea and vomiting) Qty: 30 0RF (units unknown) (unknown) (unknown) (no date) (unknown) (unknown) 50 mg PO Q6H PRN (Reason: pain) Qty: 10 0RF (units unknown) (unknown) (unknown) (no date) (unknown) (unknown) 600 mg PO Q6HR PRN (Reason: Pain, Mild (1-3)) Qty: 30 0RF (units unknown) (unknown) (unknown) (no date) (unknown) (unknown) 750 mL of time. She just she has nothing to do but relapsed. This 3 weeks ago (units unknown) (unknown) (unknown) (no date) (unknown) (unknown) 9 points (units unknown) (unknown) (unknown) (no date) (unknown) (unknown) ALT (<35) IU/L (units unknown) (unknown) (unknown) (no date) (unknown) (unknown) ALT 21 (<35) IU/L (units unknown) (unknown) (unknown) (no date) (unknown) (unknown) AST (14-36) IU/L (units unknown) (unknown) (unknown) (no date) (unknown) (unknown) AST 67 H (14-36) IU/L (units unknown) (unknown) (unknown) (no date) (unknown) (unknown) Acetaminophen < 10 (10-30) ug/mL (units unknown) (unknown) (unknown) (no date) (unknown) (unknown) Acetaminophen (10-30 ) ug/mL (units unknown) (unknown) (unknown) (no date) (unknown) (unknown) Acute cystitis (units unknown) (unknown) (unknown) (no date) (unknown) (unknown) Admin: 07/12/22 19:4 7 Dose: 500 mg (units unknown) (unknown) (unknown) (no date) (unknown) (unknown) Age/Sex: 31 / F (units unknown) (unknown) (unknown) (no date) (unknown) (unknown) Agitation ?> 2 = (More severe symptoms) (units unknown) (unknown) (unknown) (no date) (unknown) (unknown) Albumin (3.5-5.0) g/dL (units unknown) (unknown) (unknown) (no date) (unknown) (unknown) Albumin 4.3 (3.5-5.0 ) g/dL (units unknown) (unknown) (unknown) (no date) (unknown) (unknown) Albumin/Globulin Ratio (1.0-2.8) (units unknown) (unknown) (unknown) (no date) (unknown) (unknown) Albumin/Globulin Ratio 1.4 (1.0-2.8) (units unknown) (unknown) (unknown) (no date) (unknown) (unknown) Alcohol use disorder (units unknown) (unknown) (unknown) (no date) (unknown) (unknown) Alcoholism (units unknown) (unknown) (unknown) (no date) (unknown) (unknown) Alkaline Phosphatase (38-126) U/L (units unknown) (unknown) (unknown) (no date) (unknown) (unknown) Alkaline Phosphatase 98 (38-126) U/L (units unknown) (unknown) (unknown) (no date) (unknown) (unknown) Allergies (units unknown) (unknown) (unknown) (no date) (unknown) (unknown) Allergy/AdvReac Type Severity Reaction Status Date / Time (units unknown) (unknown) (unknown) (no date) (unknown) (unknown) Anemia (-2018) (units unknown) (unknown) (unknown) (no date) (unknown) (unknown) Anxiety ?> 2 = (More severe symptoms) (units unknown) (unknown) (unknown) (no date) (unknown) (unknown) Auditory disturbance s ?> 1 = Very mild harshness or ability to frighten (units unknown) (unknown) (unknown) (no date) (unknown) (unknown) BUN (7-17) mg/dL (units unknown) (unknown) (unknown) (no date) (unknown) (unknown) BUN 9 (7-17) mg/dL (units unknown) (unknown) (unknown) (no date) (unknown) (unknown) BUN/Creatinine Ratio (6-22) (units unknown) (unknown) (unknown) (no date) (unknown) (unknown) BUN/Creatinine Ratio 11.0 (6-22) (units unknown) (unknown) (unknown) (no date) (unknown) (unknown) Baso # (Auto) (0-100 ) /uL (units unknown) (unknown) (unknown) (no date) (unknown) (unknown) Baso # (Auto) 0 (0-100) /uL (units unknown) (unknown) (unknown) (no date) (unknown) (unknown) Baso % (Auto) (0-2) % (units unknown) (unknown) (unknown) (no date) (unknown) (unknown) Baso % (Auto) 0.9 (0-2) % (units unknown) (unknown) (unknown) (no date) (unknown) (unknown) Bedside Urine Bilirubin - Negative (units unknown) (unknown) (unknown) (no date) (unknown) (unknown) Bedside Urine Glucos e Negative (units unknown) (unknown) (unknown) (no date) (unknown) (unknown) Bedside Urine Ketone - Negative (units unknown) (unknown) (unknown) (no date) (unknown) (unknown) Bedside Urine Leukocytes - Negative (units unknown) (unknown) (unknown) (no date) (unknown) (unknown) Bedside Urine Nitrit e + Positive (units unknown) (unknown) (unknown) (no date) (unknown) (unknown) Bedside Urine Occult Blood - Negative (units unknown) (unknown) (unknown) (no date) (unknown) (unknown) Bedside Urine Protei n - Negative (units unknown) (unknown) (unknown) (no date) (unknown) (unknown) Bedside Urine Urobilinogen - Negative (units unknown) (unknown) (unknown) (no date) (unknown) (unknown) Bedside Urine pH 6.0 (units unknown) (unknown) (unknown) (no date) (unknown) (unknown) Blood Pressure 102/5 9 L (units unknown) (unknown) (unknown) (no date) (unknown) (unknown) Blood Pressure 112/6 2 07/12/22 16:10 (units unknown) (unknown) (unknown) (no date) (unknown) (unknown) Blood Pressure 99/58 L (units unknown) (unknown) (unknown) (no date) (unknown) (unknown) Blood Pressure [Left Arm] 95/53 L (units unknown) (unknown) (unknown) (no date) (unknown) (unknown) Blood Pressure [Left Arm] (units unknown) (unknown) (unknown) (no date) (unknown) (unknown) Blood Pressure (units unknown) (unknown) (unknown) (no date) (unknown) (unknown) CIWA is now worse an d she has tremors, anxiety is worsening and agitation, (units unknown) (unknown) (unknown) (no date) (unknown) (unknown) CIWA-Ar for Alcohol Withdrawal from [email or web address] on 07/12/2022 (units unknown) (unknown) (unknown) (no date) (unknown) (unknown) Calcium (8.4-10.2) mg/dL (units unknown) (unknown) (unknown) (no date) (unknown) (unknown) Calcium 8.0 L (8.4-10.2) mg/dL (units unknown) (unknown) (unknown) (no date) (unknown) (unknown) Carbon Dioxide (22-32) mmol/L (units unknown) (unknown) (unknown) (no date) (unknown) (unknown) Carbon Dioxide 23 (22-32) mmol/L (units unknown) (unknown) (unknown) (no date) (unknown) (unknown) Cardiovascular: Tachycardic rate and rhythm, no peripheral edema, warm (units unknown) (unknown) (unknown) (no date) (unknown) (unknown) Cephalexin HCl (Cephalexin 250 Mg Capsule) 500 mg PO Q6H SANDY (units unknown) (unknown) (unknown) (no date) (unknown) (unknown) Chief Complaint: Alcohol intoxication, seeking detox (units unknown) (unknown) (unknown) (no date) (unknown) (unknown) Chief Complaint: Toxicology Problem (units unknown) (unknown) (unknown) (no date) (unknown) (unknown) Chloride (98-107) mmol/L (units unknown) (unknown) (unknown) (no date) (unknown) (unknown) Chloride 104 (98-107 ) mmol/L (units unknown) (unknown) (unknown) (no date) (unknown) (unknown) Clinical Impression: (units unknown) (unknown) (unknown) (no date) (unknown) (unknown) Clinical decision rules or scores evaluated: CIWA of 9 at 1753 (units unknown) (unknown) (unknown) (no date) (unknown) (unknown) Course of care: Patient is a difficult IV stick, ordered IV with lab work, (units unknown) (unknown) (unknown) (no date) (unknown) (unknown) Course (units unknown) (unknown) (unknown) (no date) (unknown) (unknown) Creatinine (0.52-1.04) mg/dL (units unknown) (unknown) (unknown) (no date) (unknown) (unknown) Creatinine 0.82 (0.52-1.04) mg/dL (units unknown) (unknown) (unknown) (no date) (unknown) (unknown) Samantha Arthur gave her grilled cheese, soup, some juice and encouraged her to stay (units unknown) (unknown) (unknown) (no date) (unknown) (unknown) : 1990 Acct:[id number] (units unknown) (unknown) (unknown) (no date) (unknown) (unknown) Date of Service: 07/12/22 (units unknown) (unknown) (unknown) (no date) (unknown) (unknown) Departure (units unknown) (unknown) (unknown) (no date) (unknown) (unknown) Differential diagnoses include but are not limited to: Alcohol withdrawal, (units unknown) (unknown) (unknown) (no date) (unknown) (unknown) Discharge Plan (units unknown) (unknown) (unknown) (no date) (unknown) (unknown) Discontinued Medications (units unknown) (unknown) (unknown) (no date) (unknown) (unknown) Documented By: AP (units unknown) (unknown) (unknown) (no date) (unknown) (unknown) Documented By: KB (units unknown) (unknown) (unknown) (no date) (unknown) (unknown) Documented By: OW (units unknown) (unknown) (unknown) (no date) (unknown) (unknown) ECG Data (units unknown) (unknown) (unknown) (no date) (unknown) (unknown) EKG independently reviewed by myself at 1830 reveals normal sinus rhythm at 72 (units unknown) (unknown) (unknown) (no date) (unknown) (unknown) ER Physician: Reinaldo Arthur D.O. (units unknown) (unknown) (unknown) (no date) (unknown) (unknown) Emergency Report (units unknown) (unknown) (unknown) (no date) (unknown) (unknown) Eos # (Auto) (0-450) /uL (units unknown) (unknown) (unknown) (no date) (unknown) (unknown) Eos # (Auto) 0 (0-450) /uL (units unknown) (unknown) (unknown) (no date) (unknown) (unknown) Eos % (Auto) (2-4) % (units unknown) (unknown) (unknown) (no date) (unknown) (unknown) Eos % (Auto) 0.3 L (2-4) % (units unknown) (unknown) (unknown) (no date) (unknown) (unknown) Esterase (units unknown) (unknown) (unknown) (no date) (unknown) (unknown) Estimated GFR > 60 (>60) mL/min (units unknown) (unknown) (unknown) (no date) (unknown) (unknown) Estimated GFR (>60) mL/min (units unknown) (unknown) (unknown) (no date) (unknown) (unknown) Ethyl Alcohol ( - 10 ) mg/dL (units unknown) (unknown) (unknown) (no date) (unknown) (unknown) Ethyl Alcohol 338 H ( - 10) mg/dL (units unknown) (unknown) (unknown) (no date) (unknown) (unknown) Exam Narrative: (units unknown) (unknown) (unknown) (no date) (unknown) (unknown) Exam (units unknown) (unknown) (unknown) (no date) (unknown) (unknown) Family History (units unknown) (unknown) (unknown) (no date) (unknown) (unknown) Family/Other Alcoholism (units unknown) (unknown) (unknown) (no date) (unknown) (unknown) Family/Other Diabete s mellitus (units unknown) (unknown) (unknown) (no date) (unknown) (unknown) Father Alcoholism (units unknown) (unknown) (unknown) (no date) (unknown) (unknown) Tonia Schneider MD [Primary Care Provider] (units unknown) (unknown) (unknown) (no date) (unknown) (unknown) Folic Acid (Folic Acid 1 Mg Tablet) 1 mg PO DAILY SANDY (units unknown) (unknown) (unknown) (no date) (unknown) (unknown) Free T4 (0.78-2.19) ng/dL (units unknown) (unknown) (unknown) (no date) (unknown) (unknown) Free T4 0.93 (0.78-2.19) ng/dL (units unknown) (unknown) (unknown) (no date) (unknown) (unknown) GI: abdomen soft, nontender to palpation, nondistended, without masses, rebound (units unknown) (unknown) (unknown) (no date) (unknown) (unknown) General (units unknown) (unknown) (unknown) (no date) (unknown) (unknown) General: cooperative , comfortable, in no acute distress, well groomed, appears (units unknown) (unknown) (unknown) (no date) (unknown) (unknown) Globulin (1.7-4.1) g/dL (units unknown) (unknown) (unknown) (no date) (unknown) (unknown) Globulin 3.0 (1.7-4.1) g/dL (units unknown) (unknown) (unknown) (no date) (unknown) (unknown) Glucose (70-100) mg/dL (units unknown) (unknown) (unknown) (no date) (unknown) (unknown) Glucose 111 H (70-100) mg/dL (units unknown) (unknown) (unknown) (no date) (unknown) (unknown) Grandfather Smoker (units unknown) (unknown) (unknown) (no date) (unknown) (unknown) Grandfather Unknown whether patient has any health problems (units unknown) (unknown) (unknown) (no date) (unknown) (unknown) Grandmother Diabetes mellitus (units unknown) (unknown) (unknown) (no date) (unknown) (unknown) Grandmother Hypoglycemia (units unknown) (unknown) (unknown) (no date) (unknown) (unknown) H/O dilation and curettage (-12/14/16) (units unknown) (unknown) (unknown) (no date) (unknown) (unknown) H/O wisdom tooth extraction () (units unknown) (unknown) (unknown) (no date) (unknown) (unknown) HEENT: symmetrical facial expressions, dry mucous membranes (units unknown) (unknown) (unknown) (no date) (unknown) (unknown) HPI - Alcohol (units unknown) (unknown) (unknown) (no date) (unknown) (unknown) HPI narrative: (units unknown) (unknown) (unknown) (no date) (unknown) (unknown) Hct (36-46) % (units unknown) (unknown) (unknown) (no date) (unknown) (unknown) Hct 35.3 L (36-46) % (units unknown) (unknown) (unknown) (no date) (unknown) (unknown) Headache/fullness in head ?> 1 = Very mild (units unknown) (unknown) (unknown) (no date) (unknown) (unknown) Hematuria presence: without hematuria Qualified Code(s): N30.00 - Acute (units unknown) (unknown) (unknown) (no date) (unknown) (unknown) Hgb (12.0-16.0) g/dL (units unknown) (unknown) (unknown) (no date) (unknown) (unknown) Hgb 11.5 L (12.0-16.0) g/dL (units unknown) (unknown) (unknown) (no date) (unknown) (unknown) History of Present Illness (units unknown) (unknown) (unknown) (no date) (unknown) (unknown) Home Medications (units unknown) (unknown) (unknown) (no date) (unknown) (unknown) I have independently reviewed the patient's vital signs and nursing notes as (units unknown) (unknown) (unknown) (no date) (unknown) (unknown) INPUTS: (units unknown) (unknown) (unknown) (no date) (unknown) (unknown) Independent historian: Patient (units unknown) (unknown) (unknown) (no date) (unknown) (unknown) Initial Vital Signs (units unknown) (unknown) (unknown) (no date) (unknown) (unknown) Initial Vital Signs: (units unknown) (unknown) (unknown) (no date) (unknown) (unknown) Insomnia (units unknown) (unknown) (unknown) (no date) (unknown) (unknown) Interpretation: (units unknown) (unknown) (unknown) (no date) (unknown) (unknown) [address] [address] (units unknown) (unknown) (unknown) (no date) (unknown) (unknown) Lab Data (units unknown) (unknown) (unknown) (no date) (unknown) (unknown) Lab Results (units unknown) (unknown) (unknown) (no date) (unknown) (unknown) Labs: (units unknown) (unknown) (unknown) (no date) (unknown) (unknown) Last Admin: 07/12/22 18:39 Dose: 4 mg (units unknown) (unknown) (unknown) (no date) (unknown) (unknown) Last Admin: 07/12/22 18:40 Dose: 1 mg (units unknown) (unknown) (unknown) (no date) (unknown) (unknown) Last Admin: 07/12/22 18:56 Dose: Not Given (units unknown) (unknown) (unknown) (no date) (unknown) (unknown) Last Admin: 07/12/22 19:48 Dose: 2 mg (units unknown) (unknown) (unknown) (no date) (unknown) (unknown) Last Admin: 07/12/22 19:49 Dose: 100 mg (units unknown) (unknown) (unknown) (no date) (unknown) (unknown) Last Admin: 07/13/22 02:11 Dose: 500 mg (units unknown) (unknown) (unknown) (no date) (unknown) (unknown) Last Admin: 07/13/22 03:36 Dose: 2 mg (units unknown) (unknown) (unknown) (no date) (unknown) (unknown) Last Admin: 07/13/22 06:01 Dose: Not Given (units unknown) (unknown) (unknown) (no date) (unknown) (unknown) Librium but she does not have this medicine with her, she only has the Seroquel. (units unknown) (unknown) (unknown) (no date) (unknown) (unknown) Lorazepam (Lorazepam 0.5 Mg Tablet) 1 mg PO NOW ONE (units unknown) (unknown) (unknown) (no date) (unknown) (unknown) Lorazepam (Lorazepam 0.5 Mg Tablet) 2 mg PO NOW ONE (units unknown) (unknown) (unknown) (no date) (unknown) (unknown) Lorazepam (Lorazepam 2 Mg/Ml Inj) 2 mg IV NOW ONE (units unknown) (unknown) (unknown) (no date) (unknown) (unknown) Lymph # (Auto) (3777-1286) /uL (units unknown) (unknown) (unknown) (no date) (unknown) (unknown) Lymph # (Auto) 1700 (4616-7753) /uL (units unknown) (unknown) (unknown) (no date) (unknown) (unknown) Lymph % (Auto) (25-40) % (units unknown) (unknown) (unknown) (no date) (unknown) (unknown) Lymph % (Auto) 50.6 H (25-40) % (units unknown) (unknown) (unknown) (no date) (unknown) (unknown) MCH (26-34) PG (units unknown) (unknown) (unknown) (no date) (unknown) (unknown) MCH 26.0 (26-34) PG (units unknown) (unknown) (unknown) (no date) (unknown) (unknown) MCHC (30-36) % (units unknown) (unknown) (unknown) (no date) (unknown) (unknown) MCHC 32.7 (30-36) % (units unknown) (unknown) (unknown) (no date) (unknown) (unknown) MCV (80-100) fL (units unknown) (unknown) (unknown) (no date) (unknown) (unknown) MCV 79.5 L (80-100) fL (units unknown) (unknown) (unknown) (no date) (unknown) (unknown) MDM - Alcohol (units unknown) (unknown) (unknown) (no date) (unknown) (unknown) MDM Narrative (units unknown) (unknown) (unknown) (no date) (unknown) (unknown) MIPS: This encounter doesn't have any diagnosis' associated with MIPS criteria. (units unknown) (unknown) (unknown) (no date) (unknown) (unknown) MSK: moves all extremities, neurovascularly intact, no weakness, normal tone no (units unknown) (unknown) (unknown) (no date) (unknown) (unknown) Medical History (units unknown) (unknown) (unknown) (no date) (unknown) (unknown) Medical decision making narrative: (units unknown) (unknown) (unknown) (no date) (unknown) (unknown) Medication Instructions Recorded Confirmed (units unknown) (unknown) (unknown) (no date) (unknown) (unknown) Medication Instructions Recorded (units unknown) (unknown) (unknown) (no date) (unknown) (unknown) Menometrorrhagia (units unknown) (unknown) (unknown) (no date) (unknown) (unknown) Mode of arrival: Ambulatory (units unknown) (unknown) (unknown) (no date) (unknown) (unknown) [place] # (Auto) (0-900 ) /uL (units unknown) (unknown) (unknown) (no date) (unknown) (unknown) [place] # (Auto) 100 (0-900) /uL (units unknown) (unknown) (unknown) (no date) (unknown) (unknown) [place] % (Auto) (3-14) % (units unknown) (unknown) (unknown) (no date) (unknown) (unknown) [place] % (Auto) 2.7 L (3-14) % (units unknown) (unknown) (unknown) (no date) (unknown) (unknown) Mother Diabetes mellitus (units unknown) (unknown) (unknown) (no date) (unknown) (unknown) Narrative (units unknown) (unknown) (unknown) (no date) (unknown) (unknown) Nausea/vomiting ?> 0 = No nausea and no vomiting (units unknown) (unknown) (unknown) (no date) (unknown) (unknown) Neuro: normal speech and cognition, A+O x3, ambulatory, clear speech (units unknown) (unknown) (unknown) (no date) (unknown) (unknown) Neut # (Auto) (0830-8964) /uL (units unknown) (unknown) (unknown) (no date) (unknown) (unknown) Neut # (Auto) 1500 (8444-9641) /uL (units unknown) (unknown) (unknown) (no date) (unknown) (unknown) Neut % (Auto) (50-75 ) % (units unknown) (unknown) (unknown) (no date) (unknown) (unknown) Neut % (Auto) 45.5 L (50-75) % (units unknown) (unknown) (unknown) (no date) (unknown) (unknown) No Action (units unknown) (unknown) (unknown) (no date) (unknown) (unknown) Obesity (units unknown) (unknown) (unknown) (no date) (unknown) (unknown) Ondansetron HCl (Ondansetron 4 Mg Odt) 4 mg SL NOW ONE (units unknown) (unknown) (unknown) (no date) (unknown) (unknown) Ondansetron HCl (Ondansetron 4 Mg/2 Ml Inj) 4 mg IV Q6HR PRN (units unknown) (unknown) (unknown) (no date) (unknown) (unknown) Ordered: (units unknown) (unknown) (unknown) (no date) (unknown) (unknown) Orders (units unknown) (unknown) (unknown) (no date) (unknown) (unknown) Orientation/clouding of sensorium ?> 0 = Oriented, can do serial additions (units unknown) (unknown) (unknown) (no date) (unknown) (unknown) Over the course of the night we have called various other facilities and they (units unknown) (unknown) (unknown) (no date) (unknown) (unknown) Overweight (units unknown) (unknown) (unknown) (no date) (unknown) (unknown) Oxygen Delivery Method Room Air 07/12/22 16:10 (units unknown) (unknown) (unknown) (no date) (unknown) (unknown) Oxygen Delivery Method Room Air Room Air (units unknown) (unknown) (unknown) (no date) (unknown) (unknown) Oxygen Delivery Method (units unknown) (unknown) (unknown) (no date) (unknown) (unknown) PRN Reason: Nausea And Vomiting (units unknown) (unknown) (unknown) (no date) (unknown) (unknown) Paroxysmal sweats ?> 0 = No sweat visible (units unknown) (unknown) (unknown) (no date) (unknown) (unknown) [facility]: [facility] ([facility] unknown) (unknown) (unknown) (no date) (unknown) (unknown) Patient History (units unknown) (unknown) (unknown) (no date) (unknown) (unknown) Patient has allergy to Reglan and hydrocodone. She denies urinary frequency, (units unknown) (unknown) (unknown) (no date) (unknown) (unknown) Patient's CIWA at 2019 is 12, I ordered for her 2 more mg of lorazepam p.o., (units unknown) (unknown) (unknown) (no date) (unknown) (unknown) Patient: Sarah Connors MR#: M (units unknown) (unknown) (unknown) (no date) (unknown) (unknown) Patients with scores >= may require medication for withdrawal. (units unknown) (unknown) (unknown) (no date) (unknown) (unknown) Pertinent lab findings reviewed: CBC is pertinent for mild leukopenia of 3.3, (units unknown) (unknown) (unknown) (no date) (unknown) (unknown) Plt Count (150-400) X103/uL (units unknown) (unknown) (unknown) (no date) (unknown) (unknown) Plt Count 226 (150-400) X103/uL (units unknown) (unknown) (unknown) (no date) (unknown) (unknown) Point of Care Testing (units unknown) (unknown) (unknown) (no date) (unknown) (unknown) Potassium (3.4-5.1) mmol/L (units unknown) (unknown) (unknown) (no date) (unknown) (unknown) Potassium 3.9 (3.4-5.1) mmol/L (units unknown) (unknown) (unknown) (no date) (unknown) (unknown) Test Results Negative (units unknown) (unknown) (unknown) (no date) (unknown) (unknown) Prescriptions: (units unknown) (unknown) (unknown) (no date) (unknown) (unknown) Previous Rx's (units unknown) (unknown) (unknown) (no date) (unknown) (unknown) Psych: mental status is intact, patient has a normal affect although she is (units unknown) (unknown) (unknown) (no date) (unknown) (unknown) Pulse Oximetry 97 100 (units unknown) (unknown) (unknown) (no date) (unknown) (unknown) Pulse Oximetry 98 97 96 (units unknown) (unknown) (unknown) (no date) (unknown) (unknown) Pulse Oximetry 99 07/12/22 16:10 (units unknown) (unknown) (unknown) (no date) (unknown) (unknown) Pulse Oximetry 99 (units unknown) (unknown) (unknown) (no date) (unknown) (unknown) Pulse Rate 82 07/12/22 16:10 (units unknown) (unknown) (unknown) (no date) (unknown) (unknown) Pulse Rate 90 (units unknown) (unknown) (unknown) (no date) (unknown) (unknown) Pulse Rate 94 H 92 H 88 (units unknown) (unknown) (unknown) (no date) (unknown) (unknown) Pulse Rate 97 H 87 (units unknown) (unknown) (unknown) (no date) (unknown) (unknown) Qualifiers: (units unknown) (unknown) (unknown) (no date) (unknown) (unknown) Questions are addressed and there is agreement with the plan and for follow-up. (units unknown) (unknown) (unknown) (no date) (unknown) (unknown) RBC (4.0-5.2) X106/uL (units unknown) (unknown) (unknown) (no date) (unknown) (unknown) RBC 4.44 (4.0-5.2) X106/uL (units unknown) (unknown) (unknown) (no date) (unknown) (unknown) RDW (11.6-14.8) % (units unknown) (unknown) (unknown) (no date) (unknown) (unknown) RDW 17.3 H (11.6-14.8) % (units unknown) (unknown) (unknown) (no date) (unknown) (unknown) RESULT SUMMARY: (units unknown) (unknown) (unknown) (no date) (unknown) (unknown) ROS Unobtainable: Al l systems reviewed + are unremarkable except as noted in HPI (units unknown) (unknown) (unknown) (no date) (unknown) (unknown) Referrals: (units unknown) (unknown) (unknown) (no date) (unknown) (unknown) Related Data (units unknown) (unknown) (unknown) (no date) (unknown) (unknown) Respiratory Rate 14 07/12/22 16:10 (units unknown) (unknown) (unknown) (no date) (unknown) (unknown) Respiratory Rate 16 18 (units unknown) (unknown) (unknown) (no date) (unknown) (unknown) Respiratory Rate (units unknown) (unknown) (unknown) (no date) (unknown) (unknown) Respiratory: normal effort, able to speak in complete sentences, without (units unknown) (unknown) (unknown) (no date) (unknown) (unknown) Review of Systems (units unknown) (unknown) (unknown) (no date) (unknown) (unknown) Reviewed vitals sign s and nursing notes. (units unknown) (unknown) (unknown) (no date) (unknown) (unknown) S/P myringotomy with insertion of tube (units unknown) (unknown) (unknown) (no date) (unknown) (unknown) SARS-CoV-2 (PCR) (Negative) (units unknown) (unknown) (unknown) (no date) (unknown) (unknown) SARS-CoV-2 (PCR) Negative (Negative) (units unknown) (unknown) (unknown) (no date) (unknown) (unknown) (spontaneous vaginal delivery) (-09/05/18) (units unknown) (unknown) (unknown) (no date) (unknown) (unknown) Salicylates < 1.0 (<20) mg/dL (units unknown) (unknown) (unknown) (no date) (unknown) (unknown) Salicylates (<20) mg/dL (units unknown) (unknown) (unknown) (no date) (unknown) (unknown) She was given a couple water, a diet order was ordered however they may not (units unknown) (unknown) (unknown) (no date) (unknown) (unknown) Signed By: (units unknown) (unknown) (unknown) (no date) (unknown) (unknown) Skin: brisk capillar y refill, without pallor or erythema (units unknown) (unknown) (unknown) (no date) (unknown) (unknown) Smoker (units unknown) (unknown) (unknown) (no date) (unknown) (unknown) [place] in the past. She has been sober for a total of 18 (units unknown) (unknown) (unknown) (no date) (unknown) (unknown) Smoking Status: Former smoker (units unknown) (unknown) (unknown) (no date) (unknown) (unknown) Social History (units unknown) (unknown) (unknown) (no date) (unknown) (unknown) Social consideration s that may affect disposition: none (units unknown) (unknown) (unknown) (no date) (unknown) (unknown) Sodium (137-145) mmol/L (units unknown) (unknown) (unknown) (no date) (unknown) (unknown) Sodium 140 (137-145) mmol/L (units unknown) (unknown) (unknown) (no date) (unknown) (unknown) Sodium Chloride (Normal Saline 0.9%) 1,000 mls @ 1,000 mls/hr IV BOLUS ONE (units unknown) (unknown) (unknown) (no date) (unknown) (unknown) Source: patient (units unknown) (unknown) (unknown) (no date) (unknown) (unknown) Stated Complaint: Stress/Depression (units unknown) (unknown) (unknown) (no date) (unknown) (unknown) Stop: 07/12/22 17:33 (units unknown) (unknown) (unknown) (no date) (unknown) (unknown) Stop: 07/12/22 17:45 (units unknown) (unknown) (unknown) (no date) (unknown) (unknown) Stop: 07/12/22 18:28 (units unknown) (unknown) (unknown) (no date) (unknown) (unknown) Stop: 07/12/22 18:31 (units unknown) (unknown) (unknown) (no date) (unknown) (unknown) Stop: 07/12/22 19:25 (units unknown) (unknown) (unknown) (no date) (unknown) (unknown) Stop: 07/12/22 20:03 (units unknown) (unknown) (unknown) (no date) (unknown) (unknown) Stop: 07/12/22 20:17 (units unknown) (unknown) (unknown) (no date) (unknown) (unknown) Substance Use Type: does not use (units unknown) (unknown) (unknown) (no date) (unknown) (unknown) Surgical History (units unknown) (unknown) (unknown) (no date) (unknown) (unknown) TSH (0.47-4.68) uIU/mL (units unknown) (unknown) (unknown) (no date) (unknown) (unknown) TSH 1.24 (0.47-4.68) uIU/mL (units unknown) (unknown) (unknown) (no date) (unknown) (unknown) Tactile disturbances ?> 1 = Very mild itching, pin and needles, burning, or (units unknown) (unknown) (unknown) (no date) (unknown) (unknown) Temperature 97.2 F L 07/12/22 16:10 (units unknown) (unknown) (unknown) (no date) (unknown) (unknown) Thiamine HCl (Thiamine 100 Mg Tablet) 100 mg PO NOW ONE (units unknown) (unknown) (unknown) (no date) (unknown) (unknown) Thiamine HCl 200 mg/ Sodium (Chloride) 102 mls @ 408 mls/hr IV NOW ONE (units unknown) (unknown) (unknown) (no date) (unknown) (unknown) This is a 31-year-ol d female with history of alcohol abuse and appears to have (units unknown) (unknown) (unknown) (no date) (unknown) (unknown) Time Seen by Provider: 07/12/22 17:05 (units unknown) (unknown) (unknown) (no date) (unknown) (unknown) Total Bilirubin (0.2-1.3) mg/dL (units unknown) (unknown) (unknown) (no date) (unknown) (unknown) Total Bilirubin 0.4 (0.2-1.3) mg/dL (units unknown) (unknown) (unknown) (no date) (unknown) (unknown) Total Protein (6.3-8.2) g/dL (units unknown) (unknown) (unknown) (no date) (unknown) (unknown) Total Protein 7.3 (6.3-8.2) g/dL (units unknown) (unknown) (unknown) (no date) (unknown) (unknown) Tremor ?> 1 = Not visible, but can be felt fingertip to fingertip (units unknown) (unknown) (unknown) (no date) (unknown) (unknown) U Benzodiazepines Scrn (Negative) (units unknown) (unknown) (unknown) (no date) (unknown) (unknown) U Benzodiazepines Scrn Negative (Negative) (units unknown) (unknown) (unknown) (no date) (unknown) (unknown) U Marijuana (THC) Screen (Negative) (units unknown) (unknown) (unknown) (no date) (unknown) (unknown) U Marijuana (THC) Screen Negative (Negative) (units unknown) (unknown) (unknown) (no date) (unknown) (unknown) U Methamphetamines Scrn (Negative) (units unknown) (unknown) (unknown) (no date) (unknown) (unknown) U Methamphetamines Scrn Negative (Negative) (units unknown) (unknown) (unknown) (no date) (unknown) (unknown) U Opiates 300ng/mL cut (Negative) (units unknown) (unknown) (unknown) (no date) (unknown) (unknown) U Opiates 300ng/mL cut Negative (Negative) (units unknown) (unknown) (unknown) (no date) (unknown) (unknown) U Tricyclic Antidepress (Negative) (units unknown) (unknown) (unknown) (no date) (unknown) (unknown) U Tricyclic Antidepress Negative (Negative) (units unknown) (unknown) (unknown) (no date) (unknown) (unknown) Ur Amphetamines Screen (Negative) (units unknown) (unknown) (unknown) (no date) (unknown) (unknown) Ur Amphetamines Screen Negative (Negative) (units unknown) (unknown) (unknown) (no date) (unknown) (unknown) Ur Barbiturates Screen (Negative) (units unknown) (unknown) (unknown) (no date) (unknown) (unknown) Ur Barbiturates Screen Negative (Negative) (units unknown) (unknown) (unknown) (no date) (unknown) (unknown) Ur Culture Indicated ? Specimen cultured (units unknown) (unknown) (unknown) (no date) (unknown) (unknown) Ur Culture Indicated? (units unknown) (unknown) (unknown) (no date) (unknown) (unknown) Ur MDMA Scrn (Ecstasy) (Negative) (units unknown) (unknown) (unknown) (no date) (unknown) (unknown) Ur MDMA Scrn (Ecstasy) Negative (Negative) (units unknown) (unknown) (unknown) (no date) (unknown) (unknown) Ur Oxycodone Screen (Negative) (units unknown) (unknown) (unknown) (no date) (unknown) (unknown) Ur Oxycodone Screen Negative (Negative) (units unknown) (unknown) (unknown) (no date) (unknown) (unknown) Ur Phencyclidine Scr n (Negative) (units unknown) (unknown) (unknown) (no date) (unknown) (unknown) Ur Phencyclidine Scr n Negative (Negative) (units unknown) (unknown) (unknown) (no date) (unknown) (unknown) Ur Squamous Epith Cells (0-5/HPF) (units unknown) (unknown) (unknown) (no date) (unknown) (unknown) Ur Squamous Epith Cells 1-5 /hpf (0-5/HPF) (units unknown) (unknown) (unknown) (no date) (unknown) (unknown) Urine Bacteria (None) (units unknown) (unknown) (unknown) (no date) (unknown) (unknown) Urine Bacteria Many (>30) H (None) (units unknown) (unknown) (unknown) (no date) (unknown) (unknown) Urine Cocaine Screen (Negative) (units unknown) (unknown) (unknown) (no date) (unknown) (unknown) Urine Cocaine Screen Negative (Negative) (units unknown) (unknown) (unknown) (no date) (unknown) (unknown) Urine Dip (units unknown) (unknown) (unknown) (no date) (unknown) (unknown) Urine Methadone Screen (Negative) (units unknown) (unknown) (unknown) (no date) (unknown) (unknown) Urine Methadone Screen Negative (Negative) (units unknown) (unknown) (unknown) (no date) (unknown) (unknown) Urine RBC (0-5/HPF) (units unknown) (unknown) (unknown) (no date) (unknown) (unknown) Urine RBC 1-5/hpf (0-5/HPF) (units unknown) (unknown) (unknown) (no date) (unknown) (unknown) Urine Specific [place] 1.015 (units unknown) (unknown) (unknown) (no date) (unknown) (unknown) Urine WBC (0-5/HPF) (units unknown) (unknown) (unknown) (no date) (unknown) (unknown) Urine WBC 1-5/hpf (0-5/HPF) (units unknown) (unknown) (unknown) (no date) (unknown) (unknown) Urine microscopy wit h many bacteria, pending for culture, will treat for acute (units unknown) (unknown) (unknown) (no date) (unknown) (unknown) Visual disturbances ?> 1 = Very mild sensitivity (units unknown) (unknown) (unknown) (no date) (unknown) (unknown) Vital Signs - 8 hr (units unknown) (unknown) (unknown) (no date) (unknown) (unknown) Vital Signs (units unknown) (unknown) (unknown) (no date) (unknown) (unknown) Vital signs: (units unknown) (unknown) (unknown) (no date) (unknown) (unknown) WBC (4.5-11.0) X103/uL (units unknown) (unknown) (unknown) (no date) (unknown) (unknown) WBC 3.3 L (4.5-11.0) X103/uL (units unknown) (unknown) (unknown) (no date) (unknown) (unknown) [1900] (Jerson) Patient received in sign out [facility] [employer]. I have reviewed the (units unknown) (unknown) (unknown) (no date) (unknown) (unknown) [Embedded Image Not Available] (units unknown) (unknown) (unknown) (no date) (unknown) (unknown) [METOCLOPRAMIDE] (units unknown) (unknown) (unknown) (no date) (unknown) (unknown) acceptable. She is nauseated, without vomiting, received Zofran previously and (units unknown) (unknown) (unknown) (no date) (unknown) (unknown) acetaminophen 325 mg tablet 325 mg PO Q6H PRN pain #20 tabs 02/05/20 (units unknown) (unknown) (unknown) (no date) (unknown) (unknown) acetaminophen [Tylenol] 325 mg tablet (units unknown) (unknown) (unknown) (no date) (unknown) (unknown) alcohol in 300s, she was last here in the emergency department in May of (units unknown) (unknown) (unknown) (no date) (unknown) (unknown) alcohol intake frequency: 3 or more drinks per day (units unknown) (unknown) (unknown) (no date) (unknown) (unknown) alcohol intake: former (units unknown) (unknown) (unknown) (no date) (unknown) (unknown) alcohol level below 0.08 to be considered for placement there. (units unknown) (unknown) (unknown) (no date) (unknown) (unknown) and below (units unknown) (unknown) (unknown) (no date) (unknown) (unknown) and she drinking daily since this happened. She wants rehab. She has been (units unknown) (unknown) (unknown) (no date) (unknown) (unknown) anxious, intoxicated and now withdrawing. pleasant and cooperative (units unknown) (unknown) (unknown) (no date) (unknown) (unknown) are currently no available beds. Patient resting comfortably (units unknown) (unknown) (unknown) (no date) (unknown) (unknown) arrhythmia, or acute ischemic changes. (units unknown) (unknown) (unknown) (no date) (unknown) (unknown) at extension and states that she feels symptoms of alcohol withdrawal. Denies (units unknown) (unknown) (unknown) (no date) (unknown) (unknown) being depressed at this time, CIWA is an 8. (units unknown) (unknown) (unknown) (no date) (unknown) (unknown) bpm with rightward axis and normal intervals. No STEMI, ST segment changes, (units unknown) (unknown) (unknown) (no date) (unknown) (unknown) clinical course and performed an independent history and physical exam. Patient (units unknown) (unknown) (unknown) (no date) (unknown) (unknown) current occupational exposures/hazards: Yes (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 with Pandemic ) (units unknown) (unknown) (unknown) (no date) (unknown) (unknown) cystitis without hematuria (units unknown) (unknown) (unknown) (no date) (unknown) (unknown) cystitis (units unknown) (unknown) (unknown) (no date) (unknown) (unknown) cystitis, she is p.o . tolerant, still pending lab work (units unknown) (unknown) (unknown) (no date) (unknown) (unknown) deliver since it is after 17:00 and the diet order was ordered at 17:30. [facility] (units unknown) (unknown) (unknown) (no date) (unknown) (unknown) detox 11 times, states that it has taking Antabuse, Librium, Ativan, she denies (units unknown) (unknown) (unknown) (no date) (unknown) (unknown) detox as well. (units unknown) (unknown) (unknown) (no date) (unknown) (unknown) diarrhea or current stool changes. (units unknown) (unknown) (unknown) (no date) (unknown) (unknown) diphenhydramine HCl 25 mg capsule 25 mg PO BEDTIME PRN insomnia #20 02/05/20 (units unknown) (unknown) (unknown) (no date) (unknown) (unknown) diphenhydramine HCl [Benadryl] 25 mg capsule (units unknown) (unknown) (unknown) (no date) (unknown) (unknown) docusate sodium 100 mg capsule 100 mg PO BID #30 caps 02/05/20 (units unknown) (unknown) (unknown) (no date) (unknown) (unknown) docusate sodium [Colace] 100 mg capsule (units unknown) (unknown) (unknown) (no date) (unknown) (unknown) draw her labs (units unknown) (unknown) (unknown) (no date) (unknown) (unknown) education level: college (units unknown) (unknown) (unknown) (no date) (unknown) (unknown) electrolyte abnormalities. 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[employer] (units unknown) (unknown) (unknown) (no date) (unknown) (unknown) fidgeting (units unknown) (unknown) (unknown) (no date) (unknown) (unknown) fluid, EtOH, and CIWA, ordered 2 mg of IV lorazepam for patient's symptoms, (units unknown) (unknown) (unknown) (no date) (unknown) (unknown) for alcohol related complaints through 2019, and she presented to the [facility] (units unknown) (unknown) (unknown) (no date) (unknown) (unknown) from social work is aware and pending her lab work to arrange for inpatient (units unknown) (unknown) (unknown) (no date) (unknown) (unknown) go to detox. She is currently intoxicated endorses symptoms of alcohol (units unknown) (unknown) (unknown) (no date) (unknown) (unknown) her urine microscopy came back positive for many bacteria, will treat for acute (units unknown) (unknown) (unknown) (no date) (unknown) (unknown) household members: spouse and children (units unknown) (unknown) (unknown) (no date) (unknown) (unknown) hydrated. (units unknown) (unknown) (unknown) (no date) (unknown) (unknown) hydrocodone [HYDROCODONE] AdvReac Unknown VOMITING Verified 07/12/22 16:18 (units unknown) (unknown) (unknown) (no date) (unknown) (unknown) ibuprofen 600 mg Tablet (units unknown) (unknown) (unknown) (no date) (unknown) (unknown) ibuprofen 600 mg tablet 600 mg PO Q6HR PRN Pain, Mild 07/04/20 (units unknown) (unknown) (unknown) (no date) (unknown) (unknown) intoxicated, pleasant, interactive and comfortable although active, anxious and (units unknown) (unknown) (unknown) (no date) (unknown) (unknown) is 338, COVID PCR wa s negative, drug screen is negative for all tested agents, (units unknown) (unknown) (unknown) (no date) (unknown) (unknown) is allergic to Reglan, will dose with another 5 mg of Zofran, no QT prolongation (units unknown) (unknown) (unknown) (no date) (unknown) (unknown) knowing if she is cox d phenobarbital in the past. (units unknown) (unknown) (unknown) (no date) (unknown) (unknown) limited history currently due to intoxication. She states that she is recently (units unknown) (unknown) (unknown) (no date) (unknown) (unknown) lorazepam at 2 mg fo r this. (units unknown) (unknown) (unknown) (no date) (unknown) (unknown) marital status: (units unknown) (unknown) (unknown) (no date) (unknown) (unknown) metoclopramide Allergy Mild RASH/HIVES Verified 07/12/22 16:18 (units unknown) (unknown) (unknown) (no date) (unknown) (unknown) mild anemia but improved from her prior with H+H of 11.5 and 35.3, no evidence (units unknown) (unknown) (unknown) (no date) (unknown) (unknown) months. She denies any recent injuries, denies chance of , denies any (units unknown) (unknown) (unknown) (no date) (unknown) (unknown) nausea vomiting or abdominal pain at this time. Denies any vomiting home or (units unknown) (unknown) (unknown) (no date) (unknown) (unknown) number of children: 1 (units unknown) (unknown) (unknown) (no date) (unknown) (unknown) numbness (units unknown) (unknown) (unknown) (no date) (unknown) (unknown) occupational status: employed (units unknown) (unknown) (unknown) (no date) (unknown) (unknown) of bleeding anywhere , CMP (units unknown) (unknown) (unknown) (no date) (unknown) (unknown) on her EKG, patient is alert and oriented x3, complaining of feeling poorly and (units unknown) (unknown) (unknown) (no date) (unknown) (unknown) ondansetron 4 mg disintegrating 4 mg PO Q6H PRN nausea and 06/12/22 (units unknown) (unknown) (unknown) (no date) (unknown) (unknown) ondansetron 4 mg disintegrating 4 mg PO Q8H PRN nausea and 01/01/20 (units unknown) (unknown) (unknown) (no date) (unknown) (unknown) ondansetron 4 mg disintegrating 4 mg PO Q8H PRN nausea and 02/05/20 (units unknown) (unknown) (unknown) (no date) (unknown) (unknown) ondansetron 4 mg tablet,disintegrating (units unknown) (unknown) (unknown) (no date) (unknown) (unknown) ordered p.o. Ativan for her symptoms and ask our into call lab to come up and (units unknown) (unknown) (unknown) (no date) (unknown) (unknown) other ingestions, is pleasant, seeking help with her intoxication and wishes to (units unknown) (unknown) (unknown) (no date) (unknown) (unknown) patient's is at the bedside offering support, she raises nausea, another (units unknown) (unknown) (unknown) (no date) (unknown) (unknown) prenat.vits,otis,min- i thang-folic 1 tab PO DAILY 12/30/19 07/03/20 (units unknown) (unknown) (unknown) (no date) (unknown) (unknown) prenat.vits,otis,min- i thang-folic Tablet (units unknown) (unknown) (unknown) (no date) (unknown) (unknown) relapsed due to a divorce with her . She used to be a frequent visitor (units unknown) (unknown) (unknown) (no date) (unknown) (unknown) resting comfortably, currently pursuing placement at [facility] (units unknown) (unknown) (unknown) (no date) (unknown) (unknown) scores of 10 or less by 4 hours a piece and must also have blood (units unknown) (unknown) (unknown) (no date) (unknown) (unknown) second hand exposure : No (growing up as a child - not currently) (units unknown) (unknown) (unknown) (no date) (unknown) (unknown) significant tremor o r tongue fasciculation, she has a mild tremor with her arms (units unknown) (unknown) (unknown) (no date) (unknown) (unknown) social work and orders are pending (units unknown) (unknown) (unknown) (no date) (unknown) (unknown) special renee needs: No (units unknown) (unknown) (unknown) (no date) (unknown) (unknown) substance abuse, alcohol intoxication, psychosis, mood disorder, depression (units unknown) (unknown) (unknown) (no date) (unknown) (unknown) substance use type: does not use (units unknown) (unknown) (unknown) (no date) (unknown) (unknown) tablet vomiting #14 tabs (units unknown) (unknown) (unknown) (no date) (unknown) (unknown) tablet vomiting #20 tabs (units unknown) (unknown) (unknown) (no date) (unknown) (unknown) tablet vomiting #30 tabs (units unknown) (unknown) (unknown) (no date) (unknown) (unknown) tenderness or exquisite tenderness with exam. (units unknown) (unknown) (unknown) (no date) (unknown) (unknown) that she drinks vodk a and admits to drinking heavily today, states that she took (units unknown) (unknown) (unknown) (no date) (unknown) (unknown) the bottle upside down and started checking from it. She states that she drank (units unknown) (unknown) (unknown) (no date) (unknown) (unknown) thyroid studies are still pending. No significant findings to her CMP. No (units unknown) (unknown) (unknown) (no date) (unknown) (unknown) tramadol 50 mg table t 50 mg PO Q6H PRN pain #10 tabs 06/12/22 (units unknown) (unknown) (unknown) (no date) (unknown) (unknown) tramadol 50 mg tablet (units unknown) (unknown) (unknown) (no date) (unknown) (unknown) tremors, no tachycardia, her CIWA is currently 10, ordered another p.o. dose of (units unknown) (unknown) (unknown) (no date) (unknown) (unknown) urgency or flank pain, endorses nausea without vomiting. Patient has been to (units unknown) (unknown) (unknown) (no date) (unknown) (unknown) well as prior record s if available. (units unknown) (unknown) (unknown) (no date) (unknown) (unknown) wheezing, stridor, o r abnormal breath sounds. No retractions or tachypnea. (units unknown) (unknown) (unknown) (no date) (unknown) (unknown) withdrawal. Patient states that she takes Seroquel 300 mg at night as well as (units unknown) (unknown) Result panel [id number] (unknown) (no date) (unknown) (unknown) (no value) (units unknown) (unknown) (unknown) (no date) (unknown) (unknown) <[email or web address] Do - Last Filed: 07/12/22 20:27> (units unknown) (unknown) (unknown) (no date) (unknown) (unknown) <Reinaldo Arthur DO - Last Filed: 07/13/22 06:11> (units unknown) (unknown) (unknown) (no date) (unknown) (unknown) (1-3) #30 tabs (units unknown) (unknown) (unknown) (no date) (unknown) (unknown) (Benadryl) caps (units unknown) (unknown) (unknown) (no date) (unknown) (unknown) (Colace) (units unknown) (unknown) (unknown) (no date) (unknown) (unknown) (Tylenol) (units unknown) (unknown) (unknown) (no date) (unknown) (unknown) [id number] (units unknown) (unknown) (unknown) (no date) (unknown) (unknown) 01:28 07/13/22 (units unknown) (unknown) (unknown) (no date) (unknown) (unknown) 01:50 (units unknown) (unknown) (unknown) (no date) (unknown) (unknown) 02:00 07/13/22 (units unknown) (unknown) (unknown) (no date) (unknown) (unknown) 02:14 07/13/22 (units unknown) (unknown) (unknown) (no date) (unknown) (unknown) 02:14 (units unknown) (unknown) (unknown) (no date) (unknown) (unknown) 02:30 (units unknown) (unknown) (unknown) (no date) (unknown) (unknown) 07/12/22 07/12/22 07/12/22 Range/Units (units unknown) (unknown) (unknown) (no date) (unknown) (unknown) 07/12/22 19:15 (units unknown) (unknown) (unknown) (no date) (unknown) (unknown) 07/12/22 (units unknown) (unknown) (unknown) (no date) (unknown) (unknown) 07/13/22 (units unknown) (unknown) (unknown) (no date) (unknown) (unknown) 0530 -patient beginning to feel a bit agitated and restless, she is tachycardic. (units unknown) (unknown) (unknown) (no date) (unknown) (unknown) 1 tab PO DAILY (units unknown) (unknown) (unknown) (no date) (unknown) (unknown) 100 mg PO BID Qty: 3 0 0RF (units unknown) (unknown) (unknown) (no date) (unknown) (unknown) 16:32 16:32 16:32 (units unknown) (unknown) (unknown) (no date) (unknown) (unknown) 183 patient still does not have an IV, has not received any IV fluid her (units unknown) (unknown) (unknown) (no date) (unknown) (unknown) 190 still no IV, patient is p.o. challenging, she received her p.o. lorazepam, (units unknown) (unknown) (unknown) (no date) (unknown) (unknown) 1929, patient now feels depressed, she is lying in bed, feeling bad, has (units unknown) (unknown) (unknown) (no date) (unknown) (unknown) 19:15 19:15 19:15 (units unknown) (unknown) (unknown) (no date) (unknown) (unknown) 1999 patient is feeling better now, her lab work is starting to return and ETOH (units unknown) (unknown) (unknown) (no date) (unknown) (unknown) 2002 patient request s to take her home dosing of Seroquel 300 mg, this is (units unknown) (unknown) (unknown) (no date) (unknown) (unknown) 2022 with similar symptoms. She comes in complaining of needing help, states (units unknown) (unknown) (unknown) (no date) (unknown) (unknown) 2200 -smoker point called back and states that patient must have free CIWA (units unknown) (unknown) (unknown) (no date) (unknown) (unknown) 23:30 07/13/22 (units unknown) (unknown) (unknown) (no date) (unknown) (unknown) 25 mg PO BEDTIME PRN (Reason: insomnia) Qty: 20 0RF (units unknown) (unknown) (unknown) (no date) (unknown) (unknown) 325 mg PO Q6H PRN (Reason: pain) Qty: 20 0RF (units unknown) (unknown) (unknown) (no date) (unknown) (unknown) 4 Zofran was ordered . So has not been given, patient is signed out to (units unknown) (unknown) (unknown) (no date) (unknown) (unknown) 4 mg PO Q6H PRN (Reason: nausea and vomiting) Qty: 14 0RF (units unknown) (unknown) (unknown) (no date) (unknown) (unknown) 4 mg PO Q8H PRN (Reason: nausea and vomiting) Qty: 20 0RF (units unknown) (unknown) (unknown) (no date) (unknown) (unknown) 4 mg PO Q8H PRN (Reason: nausea and vomiting) Qty: 30 0RF (units unknown) (unknown) (unknown) (no date) (unknown) (unknown) 50 mg PO Q6H PRN (Reason: pain) Qty: 10 0RF (units unknown) (unknown) (unknown) (no date) (unknown) (unknown) 600 mg PO Q6HR PRN (Reason: Pain, Mild (1-3)) Qty: 30 0RF (units unknown) (unknown) (unknown) (no date) (unknown) (unknown) 750 mL of time. She just she has nothing to do but relapsed. This 3 weeks ago (units unknown) (unknown) (unknown) (no date) (unknown) (unknown) 9 points (units unknown) (unknown) (unknown) (no date) (unknown) (unknown) ALT (<35) IU/L (units unknown) (unknown) (unknown) (no date) (unknown) (unknown) ALT 21 (<35) IU/L (units unknown) (unknown) (unknown) (no date) (unknown) (unknown) AST (14-36) IU/L (units unknown) (unknown) (unknown) (no date) (unknown) (unknown) AST 67 H (14-36) IU/L (units unknown) (unknown) (unknown) (no date) (unknown) (unknown) Acetaminophen < 10 (10-30) ug/mL (units unknown) (unknown) (unknown) (no date) (unknown) (unknown) Acetaminophen (10-30 ) ug/mL (units unknown) (unknown) (unknown) (no date) (unknown) (unknown) Admin: 07/12/22 19:4 7 Dose: 500 mg (units unknown) (unknown) (unknown) (no date) (unknown) (unknown) Age/Sex: 31 / F (units unknown) (unknown) (unknown) (no date) (unknown) (unknown) Agitation ?> 2 = (More severe symptoms) (units unknown) (unknown) (unknown) (no date) (unknown) (unknown) Albumin (3.5-5.0) g/dL (units unknown) (unknown) (unknown) (no date) (unknown) (unknown) Albumin 4.3 (3.5-5.0 ) g/dL (units unknown) (unknown) (unknown) (no date) (unknown) (unknown) Albumin/Globulin Ratio (1.0-2.8) (units unknown) (unknown) (unknown) (no date) (unknown) (unknown) Albumin/Globulin Ratio 1.4 (1.0-2.8) (units unknown) (unknown) (unknown) (no date) (unknown) (unknown) Alcohol withdrawal, Acute cystitis (units unknown) (unknown) (unknown) (no date) (unknown) (unknown) Alcoholism (units unknown) (unknown) (unknown) (no date) (unknown) (unknown) Alkaline Phosphatase (38-126) U/L (units unknown) (unknown) (unknown) (no date) (unknown) (unknown) Alkaline Phosphatase 98 (38-126) U/L (units unknown) (unknown) (unknown) (no date) (unknown) (unknown) Allergies (units unknown) (unknown) (unknown) (no date) (unknown) (unknown) Allergy/AdvReac Type Severity Reaction Status Date / Time (units unknown) (unknown) (unknown) (no date) (unknown) (unknown) Anemia (-2018) (units unknown) (unknown) (unknown) (no date) (unknown) (unknown) Anxiety ?> 2 = (More severe symptoms) (units unknown) (unknown) (unknown) (no date) (unknown) (unknown) Auditory disturbance s ?> 1 = Very mild harshness or ability to frighten (units unknown) (unknown) (unknown) (no date) (unknown) (unknown) BUN (7-17) mg/dL (units unknown) (unknown) (unknown) (no date) (unknown) (unknown) BUN 9 (7-17) mg/dL (units unknown) (unknown) (unknown) (no date) (unknown) (unknown) BUN/Creatinine Ratio (6-22) (units unknown) (unknown) (unknown) (no date) (unknown) (unknown) BUN/Creatinine Ratio 11.0 (6-22) (units unknown) (unknown) (unknown) (no date) (unknown) (unknown) Baso # (Auto) (0-100 ) /uL (units unknown) (unknown) (unknown) (no date) (unknown) (unknown) Baso # (Auto) 0 (0-100) /uL (units unknown) (unknown) (unknown) (no date) (unknown) (unknown) Baso % (Auto) (0-2) % (units unknown) (unknown) (unknown) (no date) (unknown) (unknown) Baso % (Auto) 0.9 (0-2) % (units unknown) (unknown) (unknown) (no date) (unknown) (unknown) Bedside Urine Bilirubin - Negative (units unknown) (unknown) (unknown) (no date) (unknown) (unknown) Bedside Urine Glucos e Negative (units unknown) (unknown) (unknown) (no date) (unknown) (unknown) Bedside Urine Ketone - Negative (units unknown) (unknown) (unknown) (no date) (unknown) (unknown) Bedside Urine Leukocytes - Negative (units unknown) (unknown) (unknown) (no date) (unknown) (unknown) Bedside Urine Nitrit e + Positive (units unknown) (unknown) (unknown) (no date) (unknown) (unknown) Bedside Urine Occult Blood - Negative (units unknown) (unknown) (unknown) (no date) (unknown) (unknown) Bedside Urine Protei n - Negative (units unknown) (unknown) (unknown) (no date) (unknown) (unknown) Bedside Urine Urobilinogen - Negative (units unknown) (unknown) (unknown) (no date) (unknown) (unknown) Bedside Urine pH 6.0 (units unknown) (unknown) (unknown) (no date) (unknown) (unknown) Blood Pressure 102/5 9 L (units unknown) (unknown) (unknown) (no date) (unknown) (unknown) Blood Pressure 112/6 2 07/12/22 16:10 (units unknown) (unknown) (unknown) (no date) (unknown) (unknown) Blood Pressure 99/58 L (units unknown) (unknown) (unknown) (no date) (unknown) (unknown) Blood Pressure [Left Arm] 95/53 L (units unknown) (unknown) (unknown) (no date) (unknown) (unknown) Blood Pressure [Left Arm] (units unknown) (unknown) (unknown) (no date) (unknown) (unknown) Blood Pressure (units unknown) (unknown) (unknown) (no date) (unknown) (unknown) CIWA is now worse an d she has tremors, anxiety is worsening and agitation, (units unknown) (unknown) (unknown) (no date) (unknown) (unknown) CIWA-Ar for Alcohol Withdrawal from [email or web address] on 07/12/2022 (units unknown) (unknown) (unknown) (no date) (unknown) (unknown) Calcium (8.4-10.2) mg/dL (units unknown) (unknown) (unknown) (no date) (unknown) (unknown) Calcium 8.0 L (8.4-10.2) mg/dL (units unknown) (unknown) (unknown) (no date) (unknown) (unknown) Carbon Dioxide (22-32) mmol/L (units unknown) (unknown) (unknown) (no date) (unknown) (unknown) Carbon Dioxide 23 (22-32) mmol/L (units unknown) (unknown) (unknown) (no date) (unknown) (unknown) Cardiovascular: Tachycardic rate and rhythm, no peripheral edema, warm (units unknown) (unknown) (unknown) (no date) (unknown) (unknown) Cephalexin HCl (Cephalexin 250 Mg Capsule) 500 mg PO Q6H SANYD (units unknown) (unknown) (unknown) (no date) (unknown) (unknown) Chief Complaint: Alcohol intoxication, seeking detox (units unknown) (unknown) (unknown) (no date) (unknown) (unknown) Chief Complaint: Toxicology Problem (units unknown) (unknown) (unknown) (no date) (unknown) (unknown) Chloride (98-107) mmol/L (units unknown) (unknown) (unknown) (no date) (unknown) (unknown) Chloride 104 (98-107 ) mmol/L (units unknown) (unknown) (unknown) (no date) (unknown) (unknown) Clinical Impression: (units unknown) (unknown) (unknown) (no date) (unknown) (unknown) Clinical decision rules or scores evaluated: CIWA of 9 at 1753 (units unknown) (unknown) (unknown) (no date) (unknown) (unknown) Course of care: Patient is a difficult IV stick, ordered IV with lab work, (units unknown) (unknown) (unknown) (no date) (unknown) (unknown) Course (units unknown) (unknown) (unknown) (no date) (unknown) (unknown) Creatinine (0.52-1.04) mg/dL (units unknown) (unknown) (unknown) (no date) (unknown) (unknown) Creatinine 0.82 (0.52-1.04) mg/dL (units unknown) (unknown) (unknown) (no date) (unknown) (unknown) Samantha Arthur gave her grilled cheese, soup, some juice and encouraged her to stay (units unknown) (unknown) (unknown) (no date) (unknown) (unknown) : 1990 Acct:[id number] (units unknown) (unknown) (unknown) (no date) (unknown) (unknown) Date of Service: 07/12/22 (units unknown) (unknown) (unknown) (no date) (unknown) (unknown) Departure (units unknown) (unknown) (unknown) (no date) (unknown) (unknown) Differential diagnoses include but are not limited to: Alcohol withdrawal, (units unknown) (unknown) (unknown) (no date) (unknown) (unknown) Discharge Plan (units unknown) (unknown) (unknown) (no date) (unknown) (unknown) Discontinued Medications (units unknown) (unknown) (unknown) (no date) (unknown) (unknown) Documented By: AP (units unknown) (unknown) (unknown) (no date) (unknown) (unknown) Documented By: KB (units unknown) (unknown) (unknown) (no date) (unknown) (unknown) Documented By: OW (units unknown) (unknown) (unknown) (no date) (unknown) (unknown) ECG Data (units unknown) (unknown) (unknown) (no date) (unknown) (unknown) EKG independently reviewed by myself at 1830 reveals normal sinus rhythm at 72 (units unknown) (unknown) (unknown) (no date) (unknown) (unknown) ER Physician: Reinaldo Arthur D.O. (units unknown) (unknown) (unknown) (no date) (unknown) (unknown) Emergency Report (units unknown) (unknown) (unknown) (no date) (unknown) (unknown) Eos # (Auto) (0-450) /uL (units unknown) (unknown) (unknown) (no date) (unknown) (unknown) Eos # (Auto) 0 (0-450) /uL (units unknown) (unknown) (unknown) (no date) (unknown) (unknown) Eos % (Auto) (2-4) % (units unknown) (unknown) (unknown) (no date) (unknown) (unknown) Eos % (Auto) 0.3 L (2-4) % (units unknown) (unknown) (unknown) (no date) (unknown) (unknown) Esterase (units unknown) (unknown) (unknown) (no date) (unknown) (unknown) Estimated GFR > 60 (>60) mL/min (units unknown) (unknown) (unknown) (no date) (unknown) (unknown) Estimated GFR (>60) mL/min (units unknown) (unknown) (unknown) (no date) (unknown) (unknown) Ethyl Alcohol ( - 10 ) mg/dL (units unknown) (unknown) (unknown) (no date) (unknown) (unknown) Ethyl Alcohol 338 H ( - 10) mg/dL (units unknown) (unknown) (unknown) (no date) (unknown) (unknown) Exam Narrative: (units unknown) (unknown) (unknown) (no date) (unknown) (unknown) Exam (units unknown) (unknown) (unknown) (no date) (unknown) (unknown) Family History (units unknown) (unknown) (unknown) (no date) (unknown) (unknown) Family/Other Alcoholism (units unknown) (unknown) (unknown) (no date) (unknown) (unknown) Family/Other Diabete s mellitus (units unknown) (unknown) (unknown) (no date) (unknown) (unknown) Father Alcoholism (units unknown) (unknown) (unknown) (no date) (unknown) (unknown) Tonia Schneider MD [Primary Care Provider] (units unknown) (unknown) (unknown) (no date) (unknown) (unknown) Folic Acid (Folic Acid 1 Mg Tablet) 1 mg PO DAILY SANDY (units unknown) (unknown) (unknown) (no date) (unknown) (unknown) Free T4 (0.78-2.19) ng/dL (units unknown) (unknown) (unknown) (no date) (unknown) (unknown) Free T4 0.93 (0.78-2.19) ng/dL (units unknown) (unknown) (unknown) (no date) (unknown) (unknown) GI: abdomen soft, nontender to palpation, nondistended, without masses, rebound (units unknown) (unknown) (unknown) (no date) (unknown) (unknown) General (units unknown) (unknown) (unknown) (no date) (unknown) (unknown) General: cooperative , comfortable, in no acute distress, well groomed, appears (units unknown) (unknown) (unknown) (no date) (unknown) (unknown) Globulin (1.7-4.1) g/dL (units unknown) (unknown) (unknown) (no date) (unknown) (unknown) Globulin 3.0 (1.7-4.1) g/dL (units unknown) (unknown) (unknown) (no date) (unknown) (unknown) Glucose (70-100) mg/dL (units unknown) (unknown) (unknown) (no date) (unknown) (unknown) Glucose 111 H (70-100) mg/dL (units unknown) (unknown) (unknown) (no date) (unknown) (unknown) Grandfather Smoker (units unknown) (unknown) (unknown) (no date) (unknown) (unknown) Grandfather Unknown whether patient has any health problems (units unknown) (unknown) (unknown) (no date) (unknown) (unknown) Grandmother Diabetes mellitus (units unknown) (unknown) (unknown) (no date) (unknown) (unknown) Grandmother Hypoglycemia (units unknown) (unknown) (unknown) (no date) (unknown) (unknown) H/O dilation and curettage (-12/14/16) (units unknown) (unknown) (unknown) (no date) (unknown) (unknown) H/O wisdom tooth extraction () (units unknown) (unknown) (unknown) (no date) (unknown) (unknown) HEENT: symmetrical facial expressions, dry mucous membranes (units unknown) (unknown) (unknown) (no date) (unknown) (unknown) HPI - Alcohol (units unknown) (unknown) (unknown) (no date) (unknown) (unknown) HPI narrative: (units unknown) (unknown) (unknown) (no date) (unknown) (unknown) Hct (36-46) % (units unknown) (unknown) (unknown) (no date) (unknown) (unknown) Hct 35.3 L (36-46) % (units unknown) (unknown) (unknown) (no date) (unknown) (unknown) Headache/fullness in head ?> 1 = Very mild (units unknown) (unknown) (unknown) (no date) (unknown) (unknown) Hgb (12.0-16.0) g/dL (units unknown) (unknown) (unknown) (no date) (unknown) (unknown) Hgb 11.5 L (12.0-16.0) g/dL (units unknown) (unknown) (unknown) (no date) (unknown) (unknown) History of Present Illness (units unknown) (unknown) (unknown) (no date) (unknown) (unknown) Home Medications (units unknown) (unknown) (unknown) (no date) (unknown) (unknown) I have independently reviewed the patient's vital signs and nursing notes as (units unknown) (unknown) (unknown) (no date) (unknown) (unknown) INPUTS: (units unknown) (unknown) (unknown) (no date) (unknown) (unknown) Independent historian: Patient (units unknown) (unknown) (unknown) (no date) (unknown) (unknown) Initial Vital Signs (units unknown) (unknown) (unknown) (no date) (unknown) (unknown) Initial Vital Signs: (units unknown) (unknown) (unknown) (no date) (unknown) (unknown) Insomnia (units unknown) (unknown) (unknown) (no date) (unknown) (unknown) Interpretation: (units unknown) (unknown) (unknown) (no date) (unknown) (unknown) [address] [address] (units unknown) (unknown) (unknown) (no date) (unknown) (unknown) Lab Data (units unknown) (unknown) (unknown) (no date) (unknown) (unknown) Lab Results (units unknown) (unknown) (unknown) (no date) (unknown) (unknown) Labs: (units unknown) (unknown) (unknown) (no date) (unknown) (unknown) Last Admin: 07/12/22 18:39 Dose: 4 mg (units unknown) (unknown) (unknown) (no date) (unknown) (unknown) Last Admin: 07/12/22 18:40 Dose: 1 mg (units unknown) (unknown) (unknown) (no date) (unknown) (unknown) Last Admin: 07/12/22 18:56 Dose: Not Given (units unknown) (unknown) (unknown) (no date) (unknown) (unknown) Last Admin: 07/12/22 19:48 Dose: 2 mg (units unknown) (unknown) (unknown) (no date) (unknown) (unknown) Last Admin: 07/12/22 19:49 Dose: 100 mg (units unknown) (unknown) (unknown) (no date) (unknown) (unknown) Last Admin: 07/13/22 02:11 Dose: 500 mg (units unknown) (unknown) (unknown) (no date) (unknown) (unknown) Last Admin: 07/13/22 03:36 Dose: 2 mg (units unknown) (unknown) (unknown) (no date) (unknown) (unknown) Last Admin: 07/13/22 06:01 Dose: Not Given (units unknown) (unknown) (unknown) (no date) (unknown) (unknown) Librium but she does not have this medicine with her, she only has the Seroquel. (units unknown) (unknown) (unknown) (no date) (unknown) (unknown) Lorazepam (Lorazepam 0.5 Mg Tablet) 1 mg PO NOW ONE (units unknown) (unknown) (unknown) (no date) (unknown) (unknown) Lorazepam (Lorazepam 0.5 Mg Tablet) 2 mg PO NOW ONE (units unknown) (unknown) (unknown) (no date) (unknown) (unknown) Lorazepam (Lorazepam 2 Mg/Ml Inj) 2 mg IV NOW ONE (units unknown) (unknown) (unknown) (no date) (unknown) (unknown) Lymph # (Auto) (9412-0739) /uL (units unknown) (unknown) (unknown) (no date) (unknown) (unknown) Lymph # (Auto) 1700 (6737-3551) /uL (units unknown) (unknown) (unknown) (no date) (unknown) (unknown) Lymph % (Auto) (25-40) % (units unknown) (unknown) (unknown) (no date) (unknown) (unknown) Lymph % (Auto) 50.6 H (25-40) % (units unknown) (unknown) (unknown) (no date) (unknown) (unknown) MCH (26-34) PG (units unknown) (unknown) (unknown) (no date) (unknown) (unknown) MCH 26.0 (26-34) PG (units unknown) (unknown) (unknown) (no date) (unknown) (unknown) MCHC (30-36) % (units unknown) (unknown) (unknown) (no date) (unknown) (unknown) MCHC 32.7 (30-36) % (units unknown) (unknown) (unknown) (no date) (unknown) (unknown) MCV (80-100) fL (units unknown) (unknown) (unknown) (no date) (unknown) (unknown) MCV 79.5 L (80-100) fL (units unknown) (unknown) (unknown) (no date) (unknown) (unknown) MDM - Alcohol (units unknown) (unknown) (unknown) (no date) (unknown) (unknown) MDM Narrative (units unknown) (unknown) (unknown) (no date) (unknown) (unknown) MIPS: This encounter doesn't have any diagnosis' associated with MIPS criteria. (units unknown) (unknown) (unknown) (no date) (unknown) (unknown) MSK: moves all extremities, neurovascularly intact, no weakness, normal tone no (units unknown) (unknown) (unknown) (no date) (unknown) (unknown) Medical History (units unknown) (unknown) (unknown) (no date) (unknown) (unknown) Medical decision making narrative: (units unknown) (unknown) (unknown) (no date) (unknown) (unknown) Medication Instructions Recorded Confirmed (units unknown) (unknown) (unknown) (no date) (unknown) (unknown) Medication Instructions Recorded (units unknown) (unknown) (unknown) (no date) (unknown) (unknown) Menometrorrhagia (units unknown) (unknown) (unknown) (no date) (unknown) (unknown) Mode of arrival: Ambulatory (units unknown) (unknown) (unknown) (no date) (unknown) (unknown) [place] # (Auto) (0-900 ) /uL (units unknown) (unknown) (unknown) (no date) (unknown) (unknown) [place] # (Auto) 100 (0-900) /uL (units unknown) (unknown) (unknown) (no date) (unknown) (unknown) [place] % (Auto) (3-14) % (units unknown) (unknown) (unknown) (no date) (unknown) (unknown) [place] % (Auto) 2.7 L (3-14) % (units unknown) (unknown) (unknown) (no date) (unknown) (unknown) Mother Diabetes mellitus (units unknown) (unknown) (unknown) (no date) (unknown) (unknown) Narrative (units unknown) (unknown) (unknown) (no date) (unknown) (unknown) Nausea/vomiting ?> 0 = No nausea and no vomiting (units unknown) (unknown) (unknown) (no date) (unknown) (unknown) Neuro: normal speech and cognition, A+O x3, ambulatory, clear speech (units unknown) (unknown) (unknown) (no date) (unknown) (unknown) Neut # (Auto) (3111-2356) /uL (units unknown) (unknown) (unknown) (no date) (unknown) (unknown) Neut # (Auto) 1500 (2660-7270) /uL (units unknown) (unknown) (unknown) (no date) (unknown) (unknown) Neut % (Auto) (50-75 ) % (units unknown) (unknown) (unknown) (no date) (unknown) (unknown) Neut % (Auto) 45.5 L (50-75) % (units unknown) (unknown) (unknown) (no date) (unknown) (unknown) No Action (units unknown) (unknown) (unknown) (no date) (unknown) (unknown) Obesity (units unknown) (unknown) (unknown) (no date) (unknown) (unknown) Ondansetron HCl (Ondansetron 4 Mg Odt) 4 mg SL NOW ONE (units unknown) (unknown) (unknown) (no date) (unknown) (unknown) Ondansetron HCl (Ondansetron 4 Mg/2 Ml Inj) 4 mg IV Q6HR PRN (units unknown) (unknown) (unknown) (no date) (unknown) (unknown) Ordered: (units unknown) (unknown) (unknown) (no date) (unknown) (unknown) Orders (units unknown) (unknown) (unknown) (no date) (unknown) (unknown) Orientation/clouding of sensorium ?> 0 = Oriented, can do serial additions (units unknown) (unknown) (unknown) (no date) (unknown) (unknown) Over the course of the night we have called various other facilities and they (units unknown) (unknown) (unknown) (no date) (unknown) (unknown) Overweight (units unknown) (unknown) (unknown) (no date) (unknown) (unknown) Oxygen Delivery Method Room Air 07/12/22 16:10 (units unknown) (unknown) (unknown) (no date) (unknown) (unknown) Oxygen Delivery Method Room Air Room Air (units unknown) (unknown) (unknown) (no date) (unknown) (unknown) Oxygen Delivery Method (units unknown) (unknown) (unknown) (no date) (unknown) (unknown) PRN Reason: Nausea And Vomiting (units unknown) (unknown) (unknown) (no date) (unknown) (unknown) Paroxysmal sweats ?> 0 = No sweat visible (units unknown) (unknown) (unknown) (no date) (unknown) (unknown) Patient Disposition: Admitted As Inpatient (units unknown) (unknown) (unknown) (no date) (unknown) (unknown) Patient History (units unknown) (unknown) (unknown) (no date) (unknown) (unknown) Patient has allergy to Reglan and hydrocodone. She denies urinary frequency, (units unknown) (unknown) (unknown) (no date) (unknown) (unknown) Patient's CIWA at 2020 is 12, I ordered for her 2 more mg of lorazepam p.o., (units unknown) (unknown) (unknown) (no date) (unknown) (unknown) Patient: Sarah Connors MR#: M (units unknown) (unknown) (unknown) (no date) (unknown) (unknown) Patients with scores >= may require medication for withdrawal. (units unknown) (unknown) (unknown) (no date) (unknown) (unknown) Pertinent lab findings reviewed: CBC is pertinent for mild leukopenia of 3.3, (units unknown) (unknown) (unknown) (no date) (unknown) (unknown) Plt Count (150-400) X103/uL (units unknown) (unknown) (unknown) (no date) (unknown) (unknown) Plt Count 226 (150-400) X103/uL (units unknown) (unknown) (unknown) (no date) (unknown) (unknown) Point of Care Testing (units unknown) (unknown) (unknown) (no date) (unknown) (unknown) Potassium (3.4-5.1) mmol/L (units unknown) (unknown) (unknown) (no date) (unknown) (unknown) Potassium 3.9 (3.4-5.1) mmol/L (units unknown) (unknown) (unknown) (no date) (unknown) (unknown) Test Results Negative (units unknown) (unknown) (unknown) (no date) (unknown) (unknown) Prescriptions: (units unknown) (unknown) (unknown) (no date) (unknown) (unknown) Previous Rx's (units unknown) (unknown) (unknown) (no date) (unknown) (unknown) Psych: mental status is intact, patient has a normal affect although she is (units unknown) (unknown) (unknown) (no date) (unknown) (unknown) Pulse Oximetry 97 100 (units unknown) (unknown) (unknown) (no date) (unknown) (unknown) Pulse Oximetry 98 97 96 (units unknown) (unknown) (unknown) (no date) (unknown) (unknown) Pulse Oximetry 99 07/12/22 16:10 (units unknown) (unknown) (unknown) (no date) (unknown) (unknown) Pulse Oximetry 99 (units unknown) (unknown) (unknown) (no date) (unknown) (unknown) Pulse Rate 82 07/12/22 16:10 (units unknown) (unknown) (unknown) (no date) (unknown) (unknown) Pulse Rate 90 (units unknown) (unknown) (unknown) (no date) (unknown) (unknown) Pulse Rate 94 H 92 H 88 (units unknown) (unknown) (unknown) (no date) (unknown) (unknown) Pulse Rate 97 H 87 (units unknown) (unknown) (unknown) (no date) (unknown) (unknown) Questions are addressed and there is agreement with the plan and for follow-up. (units unknown) (unknown) (unknown) (no date) (unknown) (unknown) RBC (4.0-5.2) X106/uL (units unknown) (unknown) (unknown) (no date) (unknown) (unknown) RBC 4.44 (4.0-5.2) X106/uL (units unknown) (unknown) (unknown) (no date) (unknown) (unknown) RDW (11.6-14.8) % (units unknown) (unknown) (unknown) (no date) (unknown) (unknown) RDW 17.3 H (11.6-14.8) % (units unknown) (unknown) (unknown) (no date) (unknown) (unknown) RESULT SUMMARY: (units unknown) (unknown) (unknown) (no date) (unknown) (unknown) ROS Unobtainable: Al l systems reviewed + are unremarkable except as noted in HPI (units unknown) (unknown) (unknown) (no date) (unknown) (unknown) Referrals: (units unknown) (unknown) (unknown) (no date) (unknown) (unknown) Related Data (units unknown) (unknown) (unknown) (no date) (unknown) (unknown) Respiratory Rate 14 07/12/22 16:10 (units unknown) (unknown) (unknown) (no date) (unknown) (unknown) Respiratory Rate 16 18 (units unknown) (unknown) (unknown) (no date) (unknown) (unknown) Respiratory Rate (units unknown) (unknown) (unknown) (no date) (unknown) (unknown) Respiratory: normal effort, able to speak in complete sentences, without (units unknown) (unknown) (unknown) (no date) (unknown) (unknown) Review of Systems (units unknown) (unknown) (unknown) (no date) (unknown) (unknown) Reviewed vitals sign s and nursing notes. (units unknown) (unknown) (unknown) (no date) (unknown) (unknown) S/P myringotomy with insertion of tube (units unknown) (unknown) (unknown) (no date) (unknown) (unknown) SARS-CoV-2 (PCR) (Negative) (units unknown) (unknown) (unknown) (no date) (unknown) (unknown) SARS-CoV-2 (PCR) Negative (Negative) (units unknown) (unknown) (unknown) (no date) (unknown) (unknown) (spontaneous vaginal delivery) (-09/05/18) (units unknown) (unknown) (unknown) (no date) (unknown) (unknown) Salicylates < 1.0 (<20) mg/dL (units unknown) (unknown) (unknown) (no date) (unknown) (unknown) Salicylates (<20) mg/dL (units unknown) (unknown) (unknown) (no date) (unknown) (unknown) She was given a couple water, a diet order was ordered however they may not (units unknown) (unknown) (unknown) (no date) (unknown) (unknown) Signed By: (units unknown) (unknown) (unknown) (no date) (unknown) (unknown) Skin: brisk capillar y refill, without pallor or erythema (units unknown) (unknown) (unknown) (no date) (unknown) (unknown) Smoker (units unknown) (unknown) (unknown) (no date) (unknown) (unknown) [place] in the past. She has been sober for a total of 18 (units unknown) (unknown) (unknown) (no date) (unknown) (unknown) Smoking Status: Former smoker (units unknown) (unknown) (unknown) (no date) (unknown) (unknown) Social History (units unknown) (unknown) (unknown) (no date) (unknown) (unknown) Social consideration s that may affect disposition: none (units unknown) (unknown) (unknown) (no date) (unknown) (unknown) Sodium (137-145) mmol/L (units unknown) (unknown) (unknown) (no date) (unknown) (unknown) Sodium 140 (137-145) mmol/L (units unknown) (unknown) (unknown) (no date) (unknown) (unknown) Sodium Chloride (Normal Saline 0.9%) 1,000 mls @ 1,000 mls/hr IV BOLUS ONE (units unknown) (unknown) (unknown) (no date) (unknown) (unknown) Source: patient (units unknown) (unknown) (unknown) (no date) (unknown) (unknown) Stated Complaint: Stress/Depression (units unknown) (unknown) (unknown) (no date) (unknown) (unknown) Stop: 07/12/22 17:33 (units unknown) (unknown) (unknown) (no date) (unknown) (unknown) Stop: 07/12/22 17:45 (units unknown) (unknown) (unknown) (no date) (unknown) (unknown) Stop: 07/12/22 18:28 (units unknown) (unknown) (unknown) (no date) (unknown) (unknown) Stop: 07/12/22 18:31 (units unknown) (unknown) (unknown) (no date) (unknown) (unknown) Stop: 07/12/22 19:25 (units unknown) (unknown) (unknown) (no date) (unknown) (unknown) Stop: 07/12/22 20:03 (units unknown) (unknown) (unknown) (no date) (unknown) (unknown) Stop: 07/12/22 20:17 (units unknown) (unknown) (unknown) (no date) (unknown) (unknown) Stop: 07/13/22 06:03 (units unknown) (unknown) (unknown) (no date) (unknown) (unknown) Substance Use Type: does not use (units unknown) (unknown) (unknown) (no date) (unknown) (unknown) Surgical History (units unknown) (unknown) (unknown) (no date) (unknown) (unknown) TSH (0.47-4.68) uIU/mL (units unknown) (unknown) (unknown) (no date) (unknown) (unknown) TSH 1.24 (0.47-4.68) uIU/mL (units unknown) (unknown) (unknown) (no date) (unknown) (unknown) Tactile disturbances ?> 1 = Very mild itching, pin and needles, burning, or (units unknown) (unknown) (unknown) (no date) (unknown) (unknown) Temperature 97.2 F L 07/12/22 16:10 (units unknown) (unknown) (unknown) (no date) (unknown) (unknown) Thiamine HCl (Thiamine 100 Mg Tablet) 100 mg PO NOW ONE (units unknown) (unknown) (unknown) (no date) (unknown) (unknown) Thiamine HCl 200 mg/ Sodium (Chloride) 102 mls @ 408 mls/hr IV NOW ONE (units unknown) (unknown) (unknown) (no date) (unknown) (unknown) This is a 31-year-ol d female with history of alcohol abuse and appears to have (units unknown) (unknown) (unknown) (no date) (unknown) (unknown) Time Seen by Provider: 07/12/22 17:05 (units unknown) (unknown) (unknown) (no date) (unknown) (unknown) Total Bilirubin (0.2-1.3) mg/dL (units unknown) (unknown) (unknown) (no date) (unknown) (unknown) Total Bilirubin 0.4 (0.2-1.3) mg/dL (units unknown) (unknown) (unknown) (no date) (unknown) (unknown) Total Protein (6.3-8.2) g/dL (units unknown) (unknown) (unknown) (no date) (unknown) (unknown) Total Protein 7.3 (6.3-8.2) g/dL (units unknown) (unknown) (unknown) (no date) (unknown) (unknown) Tremor ?> 1 = Not visible, but can be felt fingertip to fingertip (units unknown) (unknown) (unknown) (no date) (unknown) (unknown) U Benzodiazepines Scrn (Negative) (units unknown) (unknown) (unknown) (no date) (unknown) (unknown) U Benzodiazepines Scrn Negative (Negative) (units unknown) (unknown) (unknown) (no date) (unknown) (unknown) U Marijuana (THC) Screen (Negative) (units unknown) (unknown) (unknown) (no date) (unknown) (unknown) U Marijuana (THC) Screen Negative (Negative) (units unknown) (unknown) (unknown) (no date) (unknown) (unknown) U Methamphetamines Scrn (Negative) (units unknown) (unknown) (unknown) (no date) (unknown) (unknown) U Methamphetamines Scrn Negative (Negative) (units unknown) (unknown) (unknown) (no date) (unknown) (unknown) U Opiates 300ng/mL cut (Negative) (units unknown) (unknown) (unknown) (no date) (unknown) (unknown) U Opiates 300ng/mL cut Negative (Negative) (units unknown) (unknown) (unknown) (no date) (unknown) (unknown) U Tricyclic Antidepress (Negative) (units unknown) (unknown) (unknown) (no date) (unknown) (unknown) U Tricyclic Antidepress Negative (Negative) (units unknown) (unknown) (unknown) (no date) (unknown) (unknown) Ur Amphetamines Screen (Negative) (units unknown) (unknown) (unknown) (no date) (unknown) (unknown) Ur Amphetamines Screen Negative (Negative) (units unknown) (unknown) (unknown) (no date) (unknown) (unknown) Ur Barbiturates Screen (Negative) (units unknown) (unknown) (unknown) (no date) (unknown) (unknown) Ur Barbiturates Screen Negative (Negative) (units unknown) (unknown) (unknown) (no date) (unknown) (unknown) Ur Culture Indicated ? Specimen cultured (units unknown) (unknown) (unknown) (no date) (unknown) (unknown) Ur Culture Indicated? (units unknown) (unknown) (unknown) (no date) (unknown) (unknown) Ur MDMA Scrn (Ecstasy) (Negative) (units unknown) (unknown) (unknown) (no date) (unknown) (unknown) Ur MDMA Scrn (Ecstasy) Negative (Negative) (units unknown) (unknown) (unknown) (no date) (unknown) (unknown) Ur Oxycodone Screen (Negative) (units unknown) (unknown) (unknown) (no date) (unknown) (unknown) Ur Oxycodone Screen Negative (Negative) (units unknown) (unknown) (unknown) (no date) (unknown) (unknown) Ur Phencyclidine Scr n (Negative) (units unknown) (unknown) (unknown) (no date) (unknown) (unknown) Ur Phencyclidine Scr n Negative (Negative) (units unknown) (unknown) (unknown) (no date) (unknown) (unknown) Ur Squamous Epith Cells (0-5/HPF) (units unknown) (unknown) (unknown) (no date) (unknown) (unknown) Ur Squamous Epith Cells 1-5 /hpf (0-5/HPF) (units unknown) (unknown) (unknown) (no date) (unknown) (unknown) Urine Bacteria (None) (units unknown) (unknown) (unknown) (no date) (unknown) (unknown) Urine Bacteria Many (>30) H (None) (units unknown) (unknown) (unknown) (no date) (unknown) (unknown) Urine Cocaine Screen (Negative) (units unknown) (unknown) (unknown) (no date) (unknown) (unknown) Urine Cocaine Screen Negative (Negative) (units unknown) (unknown) (unknown) (no date) (unknown) (unknown) Urine Dip (units unknown) (unknown) (unknown) (no date) (unknown) (unknown) Urine Methadone Screen (Negative) (units unknown) (unknown) (unknown) (no date) (unknown) (unknown) Urine Methadone Screen Negative (Negative) (units unknown) (unknown) (unknown) (no date) (unknown) (unknown) Urine RBC (0-5/HPF) (units unknown) (unknown) (unknown) (no date) (unknown) (unknown) Urine RBC 1-5/hpf (0-5/HPF) (units unknown) (unknown) (unknown) (no date) (unknown) (unknown) Urine Specific [place] 1.015 (units unknown) (unknown) (unknown) (no date) (unknown) (unknown) Urine WBC (0-5/HPF) (units unknown) (unknown) (unknown) (no date) (unknown) (unknown) Urine WBC 1-5/hpf (0-5/HPF) (units unknown) (unknown) (unknown) (no date) (unknown) (unknown) Urine microscopy wit h many bacteria, pending for culture, will treat for acute (units unknown) (unknown) (unknown) (no date) (unknown) (unknown) Visual disturbances ?> 1 = Very mild sensitivity (units unknown) (unknown) (unknown) (no date) (unknown) (unknown) Vital Signs - 8 hr (units unknown) (unknown) (unknown) (no date) (unknown) (unknown) Vital Signs (units unknown) (unknown) (unknown) (no date) (unknown) (unknown) Vital signs: (units unknown) (unknown) (unknown) (no date) (unknown) (unknown) WBC (4.5-11.0) X103/uL (units unknown) (unknown) (unknown) (no date) (unknown) (unknown) WBC 3.3 L (4.5-11.0) X103/uL (units unknown) (unknown) (unknown) (no date) (unknown) (unknown) [1900] ([place]) Patient received in sign out [facility] [employer]. I have reviewed the (units unknown) (unknown) (unknown) (no date) (unknown) (unknown) [Embedded Image Not Available] (units unknown) (unknown) (unknown) (no date) (unknown) (unknown) [METOCLOPRAMIDE] (units unknown) (unknown) (unknown) (no date) (unknown) (unknown) acceptable. She is nauseated, without vomiting, received Zofran previously and (units unknown) (unknown) (unknown) (no date) (unknown) (unknown) acetaminophen 325 mg tablet 325 mg PO Q6H PRN pain #20 tabs 02/05/20 (units unknown) (unknown) (unknown) (no date) (unknown) (unknown) acetaminophen [Tylenol] 325 mg tablet (units unknown) (unknown) (unknown) (no date) (unknown) (unknown) alcohol in 300s, she was last here in the emergency department in May of (units unknown) (unknown) (unknown) (no date) (unknown) (unknown) alcohol intake frequency: 3 or more drinks per day (units unknown) (unknown) (unknown) (no date) (unknown) (unknown) alcohol intake: former (units unknown) (unknown) (unknown) (no date) (unknown) (unknown) alcohol level below 0.08 to be considered for placement there. (units unknown) (unknown) (unknown) (no date) (unknown) (unknown) and below (units unknown) (unknown) (unknown) (no date) (unknown) (unknown) and she drinking daily since this happened. She wants rehab. She has been (units unknown) (unknown) (unknown) (no date) (unknown) (unknown) anxious, intoxicated and now withdrawing. pleasant and cooperative (units unknown) (unknown) (unknown) (no date) (unknown) (unknown) are currently no available beds. Patient resting comfortably (units unknown) (unknown) (unknown) (no date) (unknown) (unknown) arrhythmia, or acute ischemic changes. (units unknown) (unknown) (unknown) (no date) (unknown) (unknown) at extension and states that she feels symptoms of alcohol withdrawal. Denies (units unknown) (unknown) (unknown) (no date) (unknown) (unknown) being depressed at this time, CIWA is an 8. (units unknown) (unknown) (unknown) (no date) (unknown) (unknown) bpm with rightward axis and normal intervals. No STEMI, ST segment changes, (units unknown) (unknown) (unknown) (no date) (unknown) (unknown) clinical course and performed an independent history and physical exam. Patient (units unknown) (unknown) (unknown) (no date) (unknown) (unknown) current occupational exposures/hazards: Yes (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 with Pandemic ) (units unknown) (unknown) (unknown) (no date) (unknown) (unknown) cystitis (units unknown) (unknown) (unknown) (no date) (unknown) (unknown) cystitis, she is p.o . tolerant, still pending lab work (units unknown) (unknown) (unknown) (no date) (unknown) (unknown) deliver since it is after 17:00 and the diet order was ordered at 17:30. [facility] (units unknown) (unknown) (unknown) (no date) (unknown) (unknown) detox 11 times, states that it has taking Antabuse, Librium, Ativan, she denies (units unknown) (unknown) (unknown) (no date) (unknown) (unknown) detox as well. (units unknown) (unknown) (unknown) (no date) (unknown) (unknown) diarrhea or current stool changes. (units unknown) (unknown) (unknown) (no date) (unknown) (unknown) diphenhydramine HCl 25 mg capsule 25 mg PO BEDTIME PRN insomnia #20 02/05/20 (units unknown) (unknown) (unknown) (no date) (unknown) (unknown) diphenhydramine HCl [Benadryl] 25 mg capsule (units unknown) (unknown) (unknown) (no date) (unknown) (unknown) docusate sodium 100 mg capsule 100 mg PO BID #30 caps 02/05/20 (units unknown) (unknown) (unknown) (no date) (unknown) (unknown) docusate sodium [Colace] 100 mg capsule (units unknown) (unknown) (unknown) (no date) (unknown) (unknown) draw her labs (units unknown) (unknown) (unknown) (no date) (unknown) (unknown) education level: college (units unknown) (unknown) (unknown) (no date) (unknown) (unknown) electrolyte abnormalities. 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 She is currently intoxicated endorses symptoms of alcohol (units unknown) (unknown) (unknown) (no date) (unknown) (unknown) her urine microscopy came back positive for many bacteria, will treat for acute (units unknown) (unknown) (unknown) (no date) (unknown) (unknown) household members: spouse and children (units unknown) (unknown) (unknown) (no date) (unknown) (unknown) hydrated. (units unknown) (unknown) (unknown) (no date) (unknown) (unknown) hydrocodone [HYDROCODONE] AdvReac Unknown VOMITING Verified 07/12/22 16:18 (units unknown) (unknown) (unknown) (no date) (unknown) (unknown) ibuprofen 600 mg Tablet (units unknown) (unknown) (unknown) (no date) (unknown) (unknown) ibuprofen 600 mg tablet 600 mg PO Q6HR PRN Pain, Mild 07/04/20 (units unknown) (unknown) (unknown) (no date) (unknown) (unknown) intoxicated, pleasant, interactive and comfortable although active, anxious and (units unknown) (unknown) (unknown) (no date) (unknown) (unknown) is 338, COVID PCR wa s negative, drug screen is negative for all tested agents, (units unknown) (unknown) (unknown) (no date) (unknown) (unknown) is allergic to Reglan, will dose with another 5 mg of Zofran, no QT prolongation (units unknown) (unknown) (unknown) (no date) (unknown) (unknown) knowing if she is cox d phenobarbital in the past. (units unknown) (unknown) (unknown) (no date) (unknown) (unknown) limited history currently due to intoxication. She states that she is recently (units unknown) (unknown) (unknown) (no date) (unknown) (unknown) lorazepam at 2 mg fo r this. (units unknown) (unknown) (unknown) (no date) (unknown) (unknown) marital status: (units unknown) (unknown) (unknown) (no date) (unknown) (unknown) metoclopramide Allergy Mild RASH/HIVES Verified 07/12/22 16:18 (units unknown) (unknown) (unknown) (no date) (unknown) (unknown) mild anemia but improved from her prior with H+H of 11.5 and 35.3, no evidence (units unknown) (unknown) (unknown) (no date) (unknown) (unknown) months. She denies any recent injuries, denies chance of , denies any (units unknown) (unknown) (unknown) (no date) (unknown) (unknown) nausea vomiting or abdominal pain at this time. Denies any vomiting home or (units unknown) (unknown) (unknown) (no date) (unknown) (unknown) number of children: 1 (units unknown) (unknown) (unknown) (no date) (unknown) (unknown) numbness (units unknown) (unknown) (unknown) (no date) (unknown) (unknown) occupational status: employed (units unknown) (unknown) (unknown) (no date) (unknown) (unknown) of bleeding anywhere , CMP (units unknown) (unknown) (unknown) (no date) (unknown) (unknown) on her EKG, patient is alert and oriented x3, complaining of feeling poorly and (units unknown) (unknown) (unknown) (no date) (unknown) (unknown) ondansetron 4 mg disintegrating 4 mg PO Q6H PRN nausea and 06/12/22 (units unknown) (unknown) (unknown) (no date) (unknown) (unknown) ondansetron 4 mg disintegrating 4 mg PO Q8H PRN nausea and 01/01/20 (units unknown) (unknown) (unknown) (no date) (unknown) (unknown) ondansetron 4 mg disintegrating 4 mg PO Q8H PRN nausea and 02/05/20 (units unknown) (unknown) (unknown) (no date) (unknown) (unknown) ondansetron 4 mg tablet,disintegrating (units unknown) (unknown) (unknown) (no date) (unknown) (unknown) ordered p.o. Ativan for her symptoms and ask our into call lab to come up and (units unknown) (unknown) (unknown) (no date) (unknown) (unknown) other ingestions, is pleasant, seeking help with her intoxication and wishes to (units unknown) (unknown) (unknown) (no date) (unknown) (unknown) patient's is at the bedside offering support, she raises nausea, another (units unknown) (unknown) (unknown) (no date) (unknown) (unknown) prenat.vits,otis,min- i thang-folic 1 tab PO DAILY 12/30/19 07/03/20 (units unknown) (unknown) (unknown) (no date) (unknown) (unknown) prenat.vits,otis,min- i thang-folic Tablet (units unknown) (unknown) (unknown) (no date) (unknown) (unknown) relapsed due to a divorce with her . She used to be a frequent visitor (units unknown) (unknown) (unknown) (no date) (unknown) (unknown) resting comfortably, currently pursuing placement at [facility] (units unknown) (unknown) (unknown) (no date) (unknown) (unknown) scores of 10 or less by 4 hours a piece and must also have blood (units unknown) (unknown) (unknown) (no date) (unknown) (unknown) second hand exposure : No (growing up as a child - not currently) (units unknown) (unknown) (unknown) (no date) (unknown) (unknown) significant tremor o r tongue fasciculation, she has a mild tremor with her arms (units unknown) (unknown) (unknown) (no date) (unknown) (unknown) social work and orders are pending (units unknown) (unknown) (unknown) (no date) (unknown) (unknown) special renee needs: No (units unknown) (unknown) (unknown) (no date) (unknown) (unknown) substance abuse, alcohol intoxication, psychosis, mood disorder, depression (units unknown) (unknown) (unknown) (no date) (unknown) (unknown) substance use type: does not use (units unknown) (unknown) (unknown) (no date) (unknown) (unknown) tablet vomiting #14 tabs (units unknown) (unknown) (unknown) (no date) (unknown) (unknown) tablet vomiting #20 tabs (units unknown) (unknown) (unknown) (no date) (unknown) (unknown) tablet vomiting #30 tabs (units unknown) (unknown) (unknown) (no date) (unknown) (unknown) tenderness or exquisite tenderness with exam. (units unknown) (unknown) (unknown) (no date) (unknown) (unknown) that she drinks vodk a and admits to drinking heavily today, states that she took (units unknown) (unknown) (unknown) (no date) (unknown) (unknown) the bottle upside down and started checking from it. She states that she drank (units unknown) (unknown) (unknown) (no date) (unknown) (unknown) thyroid studies are still pending. No significant findings to her CMP. No (units unknown) (unknown) (unknown) (no date) (unknown) (unknown) tramadol 50 mg table t 50 mg PO Q6H PRN pain #10 tabs 06/12/22 (units unknown) (unknown) (unknown) (no date) (unknown) (unknown) tramadol 50 mg tablet (units unknown) (unknown) (unknown) (no date) (unknown) (unknown) tremors, no tachycardia, her CIWA is currently 10, ordered another p.o. dose of (units unknown) (unknown) (unknown) (no date) (unknown) (unknown) urgency or flank pain, endorses nausea without vomiting. Patient has been to (units unknown) (unknown) (unknown) (no date) (unknown) (unknown) well as prior record s if available. (units unknown) (unknown) (unknown) (no date) (unknown) (unknown) wheezing, stridor, o r abnormal breath sounds. No retractions or tachypnea. (units unknown) (unknown) (unknown) (no date) (unknown) (unknown) withdrawal. Patient states that she takes Seroquel 300 mg at night as well as (units unknown) (unknown) Result panel [id number] (unknown) (no date) (unknown) (unknown) (no value) (units unknown) (unknown) (unknown) (no date) (unknown) (unknown) <Electronically signed by Reinaldo Arthur D.O.> (units unknown) (unknown) (unknown) (no date) (unknown) (unknown) <[place] DoP - Last Filed: 07/12/22 20:27> (units unknown) (unknown) (unknown) (no date) (unknown) (unknown) <Reinaldo Arthur DO - Last Filed: 07/13/22 06:31> (units unknown) (unknown) (unknown) (no date) (unknown) (unknown) (1-3) #30 tabs (units unknown) (unknown) (unknown) (no date) (unknown) (unknown) (Benadryl) caps (units unknown) (unknown) (unknown) (no date) (unknown) (unknown) (Colace) (units unknown) (unknown) (unknown) (no date) (unknown) (unknown) (Tylenol) (units unknown) (unknown) (unknown) (no date) (unknown) (unknown) [phone] (units unknown) (unknown) (unknown) (no date) (unknown) (unknown) 01:28 07/13/22 (units unknown) (unknown) (unknown) (no date) (unknown) (unknown) 01:50 (units unknown) (unknown) (unknown) (no date) (unknown) (unknown) 02:00 07/13/22 (units unknown) (unknown) (unknown) (no date) (unknown) (unknown) 02:14 07/13/22 (units unknown) (unknown) (unknown) (no date) (unknown) (unknown) 02:14 (units unknown) (unknown) (unknown) (no date) (unknown) (unknown) 02:30 07/13/22 (units unknown) (unknown) (unknown) (no date) (unknown) (unknown) 07/12/22 07/12/22 07/12/22 Range/Units (units unknown) (unknown) (unknown) (no date) (unknown) (unknown) 07/12/22 19:15 (units unknown) (unknown) (unknown) (no date) (unknown) (unknown) 07/12/22 (units unknown) (unknown) (unknown) (no date) (unknown) (unknown) 07/13/22 0631 (units unknown) (unknown) (unknown) (no date) (unknown) (unknown) 07/13/22 (units unknown) (unknown) (unknown) (no date) (unknown) (unknown) 03:00 07/13/22 (units unknown) (unknown) (unknown) (no date) (unknown) (unknown) 03:30 (units unknown) (unknown) (unknown) (no date) (unknown) (unknown) 04:00 07/13/22 (units unknown) (unknown) (unknown) (no date) (unknown) (unknown) 04:30 07/13/22 (units unknown) (unknown) (unknown) (no date) (unknown) (unknown) 0530 -patient beginning to feel a bit agitated and restless, she is tachycardic. (units unknown) (unknown) (unknown) (no date) (unknown) (unknown) 0545 -IV placed, IV Ativan ordered. Patient with increasing signs of alcohol (units unknown) (unknown) (unknown) (no date) (unknown) (unknown) 05:00 (units unknown) (unknown) (unknown) (no date) (unknown) (unknown) 05:30 07/13/22 (units unknown) (unknown) (unknown) (no date) (unknown) (unknown) 05:54 07/13/22 (units unknown) (unknown) (unknown) (no date) (unknown) (unknown) 05:54 (units unknown) (unknown) (unknown) (no date) (unknown) (unknown) 06:00 07/13/22 (units unknown) (unknown) (unknown) (no date) (unknown) (unknown) 06:00 (units unknown) (unknown) (unknown) (no date) (unknown) (unknown) 16:32 16:32 16:32 (units unknown) (unknown) (unknown) (no date) (unknown) (unknown) 1836 patient still does not have an IV, has not received any IV fluid her (units unknown) (unknown) (unknown) (no date) (unknown) (unknown) 1900 still no IV, patient is p.o. challenging, she received her p.o. lorazepam, (units unknown) (unknown) (unknown) (no date) (unknown) (unknown) 0, patient now feels depressed, she is lying in bed, feeling bad, has (units unknown) (unknown) (unknown) (no date) (unknown) (unknown) 19:15 19:15 19:15 (units unknown) (unknown) (unknown) (no date) (unknown) (unknown) 1999 patient is feeling better now, her lab work is starting to return and ETOH (units unknown) (unknown) (unknown) (no date) (unknown) (unknown) 2002 patient request s to take her home dosing of Seroquel 300 mg, this is (units unknown) (unknown) (unknown) (no date) (unknown) (unknown) 2022 with similar symptoms. She comes in complaining of needing help, states (units unknown) (unknown) (unknown) (no date) (unknown) (unknown) 2200 -smoker point called back and states that patient must have free CIWA (units unknown) (unknown) (unknown) (no date) (unknown) (unknown) 23:30 07/13/22 (units unknown) (unknown) (unknown) (no date) (unknown) (unknown) 4 Zofran was ordered . So has not been given, patient is signed out to (units unknown) (unknown) (unknown) (no date) (unknown) (unknown) 750 mL of time. She just she has nothing to do but relapsed. This 3 weeks ago (units unknown) (unknown) (unknown) (no date) (unknown) (unknown) 9 points (units unknown) (unknown) (unknown) (no date) (unknown) (unknown) ALT (<35) IU/L (units unknown) (unknown) (unknown) (no date) (unknown) (unknown) ALT 21 (<35) IU/L (units unknown) (unknown) (unknown) (no date) (unknown) (unknown) AST (14-36) IU/L (units unknown) (unknown) (unknown) (no date) (unknown) (unknown) AST 67 H (14-36) IU/L (units unknown) (unknown) (unknown) (no date) (unknown) (unknown) Acetaminophen < 10 (10-30) ug/mL (units unknown) (unknown) (unknown) (no date) (unknown) (unknown) Acetaminophen (10-30 ) ug/mL (units unknown) (unknown) (unknown) (no date) (unknown) (unknown) Acute cystitis (units unknown) (unknown) (unknown) (no date) (unknown) (unknown) Admin: 07/12/22 19:4 7 Dose: 500 mg (units unknown) (unknown) (unknown) (no date) (unknown) (unknown) Admit Date/Time: 07/13/22 06:12 (units unknown) (unknown) (unknown) (no date) (unknown) (unknown) Admit Provider: Aide Haney (units unknown) (unknown) (unknown) (no date) (unknown) (unknown) Age/Sex: 31 / F (units unknown) (unknown) (unknown) (no date) (unknown) (unknown) Agitation ?> 2 = (More severe symptoms) (units unknown) (unknown) (unknown) (no date) (unknown) (unknown) Albumin (3.5-5.0) g/dL (units unknown) (unknown) (unknown) (no date) (unknown) (unknown) Albumin 4.3 (3.5-5.0 ) g/dL (units unknown) (unknown) (unknown) (no date) (unknown) (unknown) Albumin/Globulin Ratio (1.0-2.8) (units unknown) (unknown) (unknown) (no date) (unknown) (unknown) Albumin/Globulin Ratio 1.4 (1.0-2.8) (units unknown) (unknown) (unknown) (no date) (unknown) (unknown) Alcohol withdrawal (units unknown) (unknown) (unknown) (no date) (unknown) (unknown) Alcoholism (units unknown) (unknown) (unknown) (no date) (unknown) (unknown) Alkaline Phosphatase (38-126) U/L (units unknown) (unknown) (unknown) (no date) (unknown) (unknown) Alkaline Phosphatase 98 (38-126) U/L (units unknown) (unknown) (unknown) (no date) (unknown) (unknown) Allergies (units unknown) (unknown) (unknown) (no date) (unknown) (unknown) Allergy/AdvReac Type Severity Reaction Status Date / Time (units unknown) (unknown) (unknown) (no date) (unknown) (unknown) Anemia (-2018) (units unknown) (unknown) (unknown) (no date) (unknown) (unknown) Anxiety ?> 2 = (More severe symptoms) (units unknown) (unknown) (unknown) (no date) (unknown) (unknown) Auditory disturbance s ?> 1 = Very mild harshness or ability to frighten (units unknown) (unknown) (unknown) (no date) (unknown) (unknown) BUN (7-17) mg/dL (units unknown) (unknown) (unknown) (no date) (unknown) (unknown) BUN 9 (7-17) mg/dL (units unknown) (unknown) (unknown) (no date) (unknown) (unknown) BUN/Creatinine Ratio (6-22) (units unknown) (unknown) (unknown) (no date) (unknown) (unknown) BUN/Creatinine Ratio 11.0 (6-22) (units unknown) (unknown) (unknown) (no date) (unknown) (unknown) Baso # (Auto) (0-100 ) /uL (units unknown) (unknown) (unknown) (no date) (unknown) (unknown) Baso # (Auto) 0 (0-100) /uL (units unknown) (unknown) (unknown) (no date) (unknown) (unknown) Baso % (Auto) (0-2) % (units unknown) (unknown) (unknown) (no date) (unknown) (unknown) Baso % (Auto) 0.9 (0-2) % (units unknown) (unknown) (unknown) (no date) (unknown) (unknown) Bedside Urine Bilirubin - Negative (units unknown) (unknown) (unknown) (no date) (unknown) (unknown) Bedside Urine Glucos e Negative (units unknown) (unknown) (unknown) (no date) (unknown) (unknown) Bedside Urine Ketone - Negative (units unknown) (unknown) (unknown) (no date) (unknown) (unknown) Bedside Urine Leukocytes - Negative (units unknown) (unknown) (unknown) (no date) (unknown) (unknown) Bedside Urine Nitrit e + Positive (units unknown) (unknown) (unknown) (no date) (unknown) (unknown) Bedside Urine Occult Blood - Negative (units unknown) (unknown) (unknown) (no date) (unknown) (unknown) Bedside Urine Protei n - Negative (units unknown) (unknown) (unknown) (no date) (unknown) (unknown) Bedside Urine Urobilinogen - Negative (units unknown) (unknown) (unknown) (no date) (unknown) (unknown) Bedside Urine pH 6.0 (units unknown) (unknown) (unknown) (no date) (unknown) (unknown) Blood Pressure 102/5 9 L (units unknown) (unknown) (unknown) (no date) (unknown) (unknown) Blood Pressure 112/6 2 07/12/22 16:10 (units unknown) (unknown) (unknown) (no date) (unknown) (unknown) Blood Pressure 93/54 L (units unknown) (unknown) (unknown) (no date) (unknown) (unknown) Blood Pressure 99/52 L (units unknown) (unknown) (unknown) (no date) (unknown) (unknown) Blood Pressure 99/58 L (units unknown) (unknown) (unknown) (no date) (unknown) (unknown) Blood Pressure [Left Arm] 95/53 L (units unknown) (unknown) (unknown) (no date) (unknown) (unknown) Blood Pressure [Left Arm] (units unknown) (unknown) (unknown) (no date) (unknown) (unknown) Blood Pressure (units unknown) (unknown) (unknown) (no date) (unknown) (unknown) CIWA is now worse an d she has tremors, anxiety is worsening and agitation, (units unknown) (unknown) (unknown) (no date) (unknown) (unknown) CIWA-Ar for Alcohol Withdrawal from [email or web address] on 07/12/2022 (units unknown) (unknown) (unknown) (no date) (unknown) (unknown) Calcium (8.4-10.2) mg/dL (units unknown) (unknown) (unknown) (no date) (unknown) (unknown) Calcium 8.0 L (8.4-10.2) mg/dL (units unknown) (unknown) (unknown) (no date) (unknown) (unknown) Carbon Dioxide (22-32) mmol/L (units unknown) (unknown) (unknown) (no date) (unknown) (unknown) Carbon Dioxide 23 (22-32) mmol/L (units unknown) (unknown) (unknown) (no date) (unknown) (unknown) Cardiovascular: Tachycardic rate and rhythm, no peripheral edema, warm (units unknown) (unknown) (unknown) (no date) (unknown) (unknown) Cephalexin HCl (Cephalexin 250 Mg Capsule) 500 mg PO Q6H SANDY (units unknown) (unknown) (unknown) (no date) (unknown) (unknown) Chief Complaint: Alcohol intoxication, seeking detox (units unknown) (unknown) (unknown) (no date) (unknown) (unknown) Chief Complaint: Toxicology Problem (units unknown) (unknown) (unknown) (no date) (unknown) (unknown) Chloride (98-107) mmol/L (units unknown) (unknown) (unknown) (no date) (unknown) (unknown) Chloride 104 (98-107 ) mmol/L (units unknown) (unknown) (unknown) (no date) (unknown) (unknown) Clinical Impression: (units unknown) (unknown) (unknown) (no date) (unknown) (unknown) Clinical decision rules or scores evaluated: CIWA of 9 at 1753 (units unknown) (unknown) (unknown) (no date) (unknown) (unknown) Course of care: Patient is a difficult IV stick, ordered IV with lab work, (units unknown) (unknown) (unknown) (no date) (unknown) (unknown) Course (units unknown) (unknown) (unknown) (no date) (unknown) (unknown) Creatinine (0.52-1.04) mg/dL (units unknown) (unknown) (unknown) (no date) (unknown) (unknown) Creatinine 0.82 (0.52-1.04) mg/dL (units unknown) (unknown) (unknown) (no date) (unknown) (unknown) Samantha Arthur gave her grilled cheese, soup, some juice and encouraged her to stay (units unknown) (unknown) (unknown) (no date) (unknown) (unknown) : 1990 Acct:[id number] (units unknown) (unknown) (unknown) (no date) (unknown) (unknown) Date of Service: 07/13/22 (units unknown) (unknown) (unknown) (no date) (unknown) (unknown) Departure (units unknown) (unknown) (unknown) (no date) (unknown) (unknown) Differential diagnoses include but are not limited to: Alcohol withdrawal, (units unknown) (unknown) (unknown) (no date) (unknown) (unknown) Discharge Plan (units unknown) (unknown) (unknown) (no date) (unknown) (unknown) Discontinued Medications (units unknown) (unknown) (unknown) (no date) (unknown) (unknown) Documented By: AP (units unknown) (unknown) (unknown) (no date) (unknown) (unknown) Documented By: KB (units unknown) (unknown) (unknown) (no date) (unknown) (unknown) Documented By: OW (units unknown) (unknown) (unknown) (no date) (unknown) (unknown) ECG Data (units unknown) (unknown) (unknown) (no date) (unknown) (unknown) EKG independently reviewed by myself at 1830 reveals normal sinus rhythm at 72 (units unknown) (unknown) (unknown) (no date) (unknown) (unknown) ER Physician: Reinaldo Arthur D.O. (units unknown) (unknown) (unknown) (no date) (unknown) (unknown) Emergency Report (units unknown) (unknown) (unknown) (no date) (unknown) (unknown) Eos # (Auto) (0-450) /uL (units unknown) (unknown) (unknown) (no date) (unknown) (unknown) Eos # (Auto) 0 (0-450) /uL (units unknown) (unknown) (unknown) (no date) (unknown) (unknown) Eos % (Auto) (2-4) % (units unknown) (unknown) (unknown) (no date) (unknown) (unknown) Eos % (Auto) 0.3 L (2-4) % (units unknown) (unknown) (unknown) (no date) (unknown) (unknown) Esterase (units unknown) (unknown) (unknown) (no date) (unknown) (unknown) Estimated GFR > 60 (>60) mL/min (units unknown) (unknown) (unknown) (no date) (unknown) (unknown) Estimated GFR (>60) mL/min (units unknown) (unknown) (unknown) (no date) (unknown) (unknown) Ethyl Alcohol ( - 10 ) mg/dL (units unknown) (unknown) (unknown) (no date) (unknown) (unknown) Ethyl Alcohol 338 H ( - 10) mg/dL (units unknown) (unknown) (unknown) (no date) (unknown) (unknown) Exam Narrative: (units unknown) (unknown) (unknown) (no date) (unknown) (unknown) Exam (units unknown) (unknown) (unknown) (no date) (unknown) (unknown) Family History (units unknown) (unknown) (unknown) (no date) (unknown) (unknown) Family/Other Alcoholism (units unknown) (unknown) (unknown) (no date) (unknown) (unknown) Family/Other Diabete s mellitus (units unknown) (unknown) (unknown) (no date) (unknown) (unknown) Father Alcoholism (units unknown) (unknown) (unknown) (no date) (unknown) (unknown) Folic Acid (Folic Acid 1 Mg Tablet) 1 mg PO DAILY SANDY (units unknown) (unknown) (unknown) (no date) (unknown) (unknown) Free T4 (0.78-2.19) ng/dL (units unknown) (unknown) (unknown) (no date) (unknown) (unknown) Free T4 0.93 (0.78-2.19) ng/dL (units unknown) (unknown) (unknown) (no date) (unknown) (unknown) GI: abdomen soft, nontender to palpation, nondistended, without masses, rebound (units unknown) (unknown) (unknown) (no date) (unknown) (unknown) General (units unknown) (unknown) (unknown) (no date) (unknown) (unknown) General: cooperative , comfortable, in no acute distress, well groomed, appears (units unknown) (unknown) (unknown) (no date) (unknown) (unknown) Globulin (1.7-4.1) g/dL (units unknown) (unknown) (unknown) (no date) (unknown) (unknown) Globulin 3.0 (1.7-4.1) g/dL (units unknown) (unknown) (unknown) (no date) (unknown) (unknown) Glucose (70-100) mg/dL (units unknown) (unknown) (unknown) (no date) (unknown) (unknown) Glucose 111 H (70-100) mg/dL (units unknown) (unknown) (unknown) (no date) (unknown) (unknown) Grandfather Smoker (units unknown) (unknown) (unknown) (no date) (unknown) (unknown) Grandfather Unknown whether patient has any health problems (units unknown) (unknown) (unknown) (no date) (unknown) (unknown) Grandmother Diabetes mellitus (units unknown) (unknown) (unknown) (no date) (unknown) (unknown) Grandmother Hypoglycemia (units unknown) (unknown) (unknown) (no date) (unknown) (unknown) H/O dilation and curettage (-12/14/16) (units unknown) (unknown) (unknown) (no date) (unknown) (unknown) H/O wisdom tooth extraction () (units unknown) (unknown) (unknown) (no date) (unknown) (unknown) HEENT: symmetrical facial expressions, dry mucous membranes (units unknown) (unknown) (unknown) (no date) (unknown) (unknown) HPI - Alcohol (units unknown) (unknown) (unknown) (no date) (unknown) (unknown) HPI narrative: (units unknown) (unknown) (unknown) (no date) (unknown) (unknown) Hct (36-46) % (units unknown) (unknown) (unknown) (no date) (unknown) (unknown) Hct 35.3 L (36-46) % (units unknown) (unknown) (unknown) (no date) (unknown) (unknown) Headache/fullness in head ?> 1 = Very mild (units unknown) (unknown) (unknown) (no date) (unknown) (unknown) Hematuria presence: without hematuria Qualified Code(s): N30.00 - Acute (units unknown) (unknown) (unknown) (no date) (unknown) (unknown) Hgb (12.0-16.0) g/dL (units unknown) (unknown) (unknown) (no date) (unknown) (unknown) Hgb 11.5 L (12.0-16.0) g/dL (units unknown) (unknown) (unknown) (no date) (unknown) (unknown) History of Present Illness (units unknown) (unknown) (unknown) (no date) (unknown) (unknown) Home Medications (units unknown) (unknown) (unknown) (no date) (unknown) (unknown) I have independently reviewed the patient's vital signs and nursing notes as (units unknown) (unknown) (unknown) (no date) (unknown) (unknown) INPUTS: (units unknown) (unknown) (unknown) (no date) (unknown) (unknown) Independent historian: Patient (units unknown) (unknown) (unknown) (no date) (unknown) (unknown) Initial Vital Signs (units unknown) (unknown) (unknown) (no date) (unknown) (unknown) Initial Vital Signs: (units unknown) (unknown) (unknown) (no date) (unknown) (unknown) Insomnia (units unknown) (unknown) (unknown) (no date) (unknown) (unknown) Interpretation: (units unknown) (unknown) (unknown) (no date) (unknown) (unknown) [address] [address] (units unknown) (unknown) (unknown) (no date) (unknown) (unknown) Lab Data (units unknown) (unknown) (unknown) (no date) (unknown) (unknown) Lab Results (units unknown) (unknown) (unknown) (no date) (unknown) (unknown) Labs: (units unknown) (unknown) (unknown) (no date) (unknown) (unknown) Last Admin: 07/12/22 18:39 Dose: 4 mg (units unknown) (unknown) (unknown) (no date) (unknown) (unknown) Last Admin: 07/12/22 18:40 Dose: 1 mg (units unknown) (unknown) (unknown) (no date) (unknown) (unknown) Last Admin: 07/12/22 18:56 Dose: Not Given (units unknown) (unknown) (unknown) (no date) (unknown) (unknown) Last Admin: 07/12/22 19:48 Dose: 2 mg (units unknown) (unknown) (unknown) (no date) (unknown) (unknown) Last Admin: 07/12/22 19:49 Dose: 100 mg (units unknown) (unknown) (unknown) (no date) (unknown) (unknown) Last Admin: 07/13/22 02:11 Dose: 500 mg (units unknown) (unknown) (unknown) (no date) (unknown) (unknown) Last Admin: 07/13/22 03:36 Dose: 2 mg (units unknown) (unknown) (unknown) (no date) (unknown) (unknown) Last Admin: 07/13/22 06:01 Dose: Not Given (units unknown) (unknown) (unknown) (no date) (unknown) (unknown) Last Admin: 07/13/22 06:11 Dose: 2 mg (units unknown) (unknown) (unknown) (no date) (unknown) (unknown) Last Admin: 07/13/22 06:22 Dose: 1,000 mls/hr (units unknown) (unknown) (unknown) (no date) (unknown) (unknown) Librium but she does not have this medicine with her, she only has the Seroquel. (units unknown) (unknown) (unknown) (no date) (unknown) (unknown) Lorazepam (Lorazepam 0.5 Mg Tablet) 1 mg PO NOW ONE (units unknown) (unknown) (unknown) (no date) (unknown) (unknown) Lorazepam (Lorazepam 0.5 Mg Tablet) 2 mg PO NOW ONE (units unknown) (unknown) (unknown) (no date) (unknown) (unknown) Lorazepam (Lorazepam 2 Mg/Ml Inj) 2 mg IV NOW ONE (units unknown) (unknown) (unknown) (no date) (unknown) (unknown) Lymph # (Auto) (8826-3051) /uL (units unknown) (unknown) (unknown) (no date) (unknown) (unknown) Lymph # (Auto) 1700 (9194-5573) /uL (units unknown) (unknown) (unknown) (no date) (unknown) (unknown) Lymph % (Auto) (25-40) % (units unknown) (unknown) (unknown) (no date) (unknown) (unknown) Lymph % (Auto) 50.6 H (25-40) % (units unknown) (unknown) (unknown) (no date) (unknown) (unknown) MCH (26-34) PG (units unknown) (unknown) (unknown) (no date) (unknown) (unknown) MCH 26.0 (26-34) PG (units unknown) (unknown) (unknown) (no date) (unknown) (unknown) MCHC (30-36) % (units unknown) (unknown) (unknown) (no date) (unknown) (unknown) MCHC 32.7 (30-36) % (units unknown) (unknown) (unknown) (no date) (unknown) (unknown) MCV (80-100) fL (units unknown) (unknown) (unknown) (no date) (unknown) (unknown) MCV 79.5 L (80-100) fL (units unknown) (unknown) (unknown) (no date) (unknown) (unknown) MDM - Alcohol (units unknown) (unknown) (unknown) (no date) (unknown) (unknown) MDM Narrative (units unknown) (unknown) (unknown) (no date) (unknown) (unknown) MIPS: This encounter doesn't have any diagnosis' associated with MIPS criteria. (units unknown) (unknown) (unknown) (no date) (unknown) (unknown) MSK: moves all extremities, neurovascularly intact, no weakness, normal tone no (units unknown) (unknown) (unknown) (no date) (unknown) (unknown) Medical History (units unknown) (unknown) (unknown) (no date) (unknown) (unknown) Medical decision making narrative: (units unknown) (unknown) (unknown) (no date) (unknown) (unknown) Medication Instructions Recorded Confirmed (units unknown) (unknown) (unknown) (no date) (unknown) (unknown) Medication Instructions Recorded (units unknown) (unknown) (unknown) (no date) (unknown) (unknown) Menometrorrhagia (units unknown) (unknown) (unknown) (no date) (unknown) (unknown) Mode of arrival: Ambulatory (units unknown) (unknown) (unknown) (no date) (unknown) (unknown) [place] # (Auto) (0-900 ) /uL (units unknown) (unknown) (unknown) (no date) (unknown) (unknown) [place] # (Auto) 100 (0-900) /uL (units unknown) (unknown) (unknown) (no date) (unknown) (unknown) [place] % (Auto) (3-14) % (units unknown) (unknown) (unknown) (no date) (unknown) (unknown) [place] % (Auto) 2.7 L (3-14) % (units unknown) (unknown) (unknown) (no date) (unknown) (unknown) Mother Diabetes mellitus (units unknown) (unknown) (unknown) (no date) (unknown) (unknown) Narrative (units unknown) (unknown) (unknown) (no date) (unknown) (unknown) Nausea/vomiting ?> 0 = No nausea and no vomiting (units unknown) (unknown) (unknown) (no date) (unknown) (unknown) Neuro: normal speech and cognition, A+O x3, ambulatory, clear speech (units unknown) (unknown) (unknown) (no date) (unknown) (unknown) Neut # (Auto) (9189-0045) /uL (units unknown) (unknown) (unknown) (no date) (unknown) (unknown) Neut # (Auto) 1500 (2613-7823) /uL (units unknown) (unknown) (unknown) (no date) (unknown) (unknown) Neut % (Auto) (50-75 ) % (units unknown) (unknown) (unknown) (no date) (unknown) (unknown) Neut % (Auto) 45.5 L (50-75) % (units unknown) (unknown) (unknown) (no date) (unknown) (unknown) Obesity (units unknown) (unknown) (unknown) (no date) (unknown) (unknown) Ondansetron HCl (Ondansetron 4 Mg Odt) 4 mg SL NOW ONE (units unknown) (unknown) (unknown) (no date) (unknown) (unknown) Ondansetron HCl (Ondansetron 4 Mg/2 Ml Inj) 4 mg IV Q6HR PRN (units unknown) (unknown) (unknown) (no date) (unknown) (unknown) Ordered: (units unknown) (unknown) (unknown) (no date) (unknown) (unknown) Orders (units unknown) (unknown) (unknown) (no date) (unknown) (unknown) Orientation/clouding of sensorium ?> 0 = Oriented, can do serial additions (units unknown) (unknown) (unknown) (no date) (unknown) (unknown) Over the course of the night we have called various other facilities and they (units unknown) (unknown) (unknown) (no date) (unknown) (unknown) Overweight (units unknown) (unknown) (unknown) (no date) (unknown) (unknown) Oxygen Delivery Method Room Air 07/12/22 16:10 (units unknown) (unknown) (unknown) (no date) (unknown) (unknown) Oxygen Delivery Method Room Air Room Air (units unknown) (unknown) (unknown) (no date) (unknown) (unknown) Oxygen Delivery Method (units unknown) (unknown) (unknown) (no date) (unknown) (unknown) PRN Reason: Nausea And Vomiting (units unknown) (unknown) (unknown) (no date) (unknown) (unknown) Paroxysmal sweats ?> 0 = No sweat visible (units unknown) (unknown) (unknown) (no date) (unknown) (unknown) Patient Disposition: Admitted As Inpatient (units unknown) (unknown) (unknown) (no date) (unknown) (unknown) Patient History (units unknown) (unknown) (unknown) (no date) (unknown) (unknown) Patient has allergy to Reglan and hydrocodone. She denies urinary frequency, (units unknown) (unknown) (unknown) (no date) (unknown) (unknown) Patient's CIWA at 2020 is 12, I ordered for her 2 more mg of lorazepam p.o., (units unknown) (unknown) (unknown) (no date) (unknown) (unknown) Patient: Sarah Connors MR#: M (units unknown) (unknown) (unknown) (no date) (unknown) (unknown) Patients with scores >= may require medication for withdrawal. (units unknown) (unknown) (unknown) (no date) (unknown) (unknown) Pertinent lab findings reviewed: CBC is pertinent for mild leukopenia of 3.3, (units unknown) (unknown) (unknown) (no date) (unknown) (unknown) Plt Count (150-400) X103/uL (units unknown) (unknown) (unknown) (no date) (unknown) (unknown) Plt Count 226 (150-400) X103/uL (units unknown) (unknown) (unknown) (no date) (unknown) (unknown) Point of Care Testing (units unknown) (unknown) (unknown) (no date) (unknown) (unknown) Potassium (3.4-5.1) mmol/L (units unknown) (unknown) (unknown) (no date) (unknown) (unknown) Potassium 3.9 (3.4-5.1) mmol/L (units unknown) (unknown) (unknown) (no date) (unknown) (unknown) Test Results Negative (units unknown) (unknown) (unknown) (no date) (unknown) (unknown) Previous Rx's (units unknown) (unknown) (unknown) (no date) (unknown) (unknown) Psych: mental status is intact, patient has a normal affect although she is (units unknown) (unknown) (unknown) (no date) (unknown) (unknown) Pulse Oximetry 97 100 (units unknown) (unknown) (unknown) (no date) (unknown) (unknown) Pulse Oximetry 97 98 98 (units unknown) (unknown) (unknown) (no date) (unknown) (unknown) Pulse Oximetry 97 (units unknown) (unknown) (unknown) (no date) (unknown) (unknown) Pulse Oximetry 98 97 96 (units unknown) (unknown) (unknown) (no date) (unknown) (unknown) Pulse Oximetry 98 98 (units unknown) (unknown) (unknown) (no date) (unknown) (unknown) Pulse Oximetry 99 07/12/22 16:10 (units unknown) (unknown) (unknown) (no date) (unknown) (unknown) Pulse Oximetry 99 97 97 (units unknown) (unknown) (unknown) (no date) (unknown) (unknown) Pulse Rate 119 H (units unknown) (unknown) (unknown) (no date) (unknown) (unknown) Pulse Rate 120 H 122 H (units unknown) (unknown) (unknown) (no date) (unknown) (unknown) Pulse Rate 82 07/12/22 16:10 (units unknown) (unknown) (unknown) (no date) (unknown) (unknown) Pulse Rate 90 99 H 109 H (units unknown) (unknown) (unknown) (no date) (unknown) (unknown) Pulse Rate 94 H 92 H 88 (units unknown) (unknown) (unknown) (no date) (unknown) (unknown) Pulse Rate 97 H 87 (units unknown) (unknown) (unknown) (no date) (unknown) (unknown) Pulse Rate 98 H 101 H 109 H (units unknown) (unknown) (unknown) (no date) (unknown) (unknown) Qualifiers: (units unknown) (unknown) (unknown) (no date) (unknown) (unknown) Questions are addressed and there is agreement with the plan and for follow-up. (units unknown) (unknown) (unknown) (no date) (unknown) (unknown) RBC (4.0-5.2) X106/uL (units unknown) (unknown) (unknown) (no date) (unknown) (unknown) RBC 4.44 (4.0-5.2) X106/uL (units unknown) (unknown) (unknown) (no date) (unknown) (unknown) RDW (11.6-14.8) % (units unknown) (unknown) (unknown) (no date) (unknown) (unknown) RDW 17.3 H (11.6-14.8) % (units unknown) (unknown) (unknown) (no date) (unknown) (unknown) RESULT SUMMARY: (units unknown) (unknown) (unknown) (no date) (unknown) (unknown) ROS Unobtainable: Al l systems reviewed + are unremarkable except as noted in HPI (units unknown) (unknown) (unknown) (no date) (unknown) (unknown) Related Data (units unknown) (unknown) (unknown) (no date) (unknown) (unknown) Respiratory Rate 14 07/12/22 16:10 (units unknown) (unknown) (unknown) (no date) (unknown) (unknown) Respiratory Rate 16 18 (units unknown) (unknown) (unknown) (no date) (unknown) (unknown) Respiratory Rate (units unknown) (unknown) (unknown) (no date) (unknown) (unknown) Respiratory: normal effort, able to speak in complete sentences, without (units unknown) (unknown) (unknown) (no date) (unknown) (unknown) Review of Systems (units unknown) (unknown) (unknown) (no date) (unknown) (unknown) Reviewed vitals sign s and nursing notes. (units unknown) (unknown) (unknown) (no date) (unknown) (unknown) S/P myringotomy with insertion of tube (units unknown) (unknown) (unknown) (no date) (unknown) (unknown) SARS-CoV-2 (PCR) (Negative) (units unknown) (unknown) (unknown) (no date) (unknown) (unknown) SARS-CoV-2 (PCR) Negative (Negative) (units unknown) (unknown) (unknown) (no date) (unknown) (unknown) (spontaneous vaginal delivery) (-09/05/18) (units unknown) (unknown) (unknown) (no date) (unknown) (unknown) Salicylates < 1.0 (<20) mg/dL (units unknown) (unknown) (unknown) (no date) (unknown) (unknown) Salicylates (<20) mg/dL (units unknown) (unknown) (unknown) (no date) (unknown) (unknown) She was given a couple water, a diet order was ordered however they may not (units unknown) (unknown) (unknown) (no date) (unknown) (unknown) Signed By: (units unknown) (unknown) (unknown) (no date) (unknown) (unknown) Skin: brisk capillar y refill, without pallor or erythema (units unknown) (unknown) (unknown) (no date) (unknown) (unknown) Smoker (units unknown) (unknown) (unknown) (no date) (unknown) (unknown) [place] [facility] [place] in the past. She has been sober for a total of 18 (units unknown) (unknown) (unknown) (no date) (unknown) (unknown) Smoking Status: Former smoker (units unknown) (unknown) (unknown) (no date) (unknown) (unknown) Social History (units unknown) (unknown) (unknown) (no date) (unknown) (unknown) Social consideration s that may affect disposition: none (units unknown) (unknown) (unknown) (no date) (unknown) (unknown) Sodium (137-145) mmol/L (units unknown) (unknown) (unknown) (no date) (unknown) (unknown) Sodium 140 (137-145) mmol/L (units unknown) (unknown) (unknown) (no date) (unknown) (unknown) Sodium Chloride (Normal Saline 0.9%) 1,000 mls @ 1,000 mls/hr IV BOLUS ONE (units unknown) (unknown) (unknown) (no date) (unknown) (unknown) Source: patient (units unknown) (unknown) (unknown) (no date) (unknown) (unknown) Stated Complaint: Stress/Depression (units unknown) (unknown) (unknown) (no date) (unknown) (unknown) Stop: 07/12/22 17:33 (units unknown) (unknown) (unknown) (no date) (unknown) (unknown) Stop: 07/12/22 17:45 (units unknown) (unknown) (unknown) (no date) (unknown) (unknown) Stop: 07/12/22 18:28 (units unknown) (unknown) (unknown) (no date) (unknown) (unknown) Stop: 07/12/22 18:31 (units unknown) (unknown) (unknown) (no date) (unknown) (unknown) Stop: 07/12/22 19:25 (units unknown) (unknown) (unknown) (no date) (unknown) (unknown) Stop: 07/12/22 20:03 (units unknown) (unknown) (unknown) (no date) (unknown) (unknown) Stop: 07/12/22 20:17 (units unknown) (unknown) (unknown) (no date) (unknown) (unknown) Stop: 07/13/22 06:03 (units unknown) (unknown) (unknown) (no date) (unknown) (unknown) Stop: 07/13/22 07:17 (units unknown) (unknown) (unknown) (no date) (unknown) (unknown) Substance Use Type: does not use (units unknown) (unknown) (unknown) (no date) (unknown) (unknown) Surgical History (units unknown) (unknown) (unknown) (no date) (unknown) (unknown) TSH (0.47-4.68) uIU/mL (units unknown) (unknown) (unknown) (no date) (unknown) (unknown) TSH 1.24 (0.47-4.68) uIU/mL (units unknown) (unknown) (unknown) (no date) (unknown) (unknown) Tactile disturbances ?> 1 = Very mild itching, pin and needles, burning, or (units unknown) (unknown) (unknown) (no date) (unknown) (unknown) Temperature 97.2 F L 07/12/22 16:10 (units unknown) (unknown) (unknown) (no date) (unknown) (unknown) Thiamine HCl (Thiamine 100 Mg Tablet) 100 mg PO NOW ONE (units unknown) (unknown) (unknown) (no date) (unknown) (unknown) Thiamine HCl 200 mg/ Sodium (Chloride) 102 mls @ 408 mls/hr IV NOW ONE (units unknown) (unknown) (unknown) (no date) (unknown) (unknown) This is a 31-year-ol d female with history of alcohol abuse and appears to have (units unknown) (unknown) (unknown) (no date) (unknown) (unknown) Time Seen by Provider: 07/12/22 17:05 (units unknown) (unknown) (unknown) (no date) (unknown) (unknown) Total Bilirubin (0.2-1.3) mg/dL (units unknown) (unknown) (unknown) (no date) (unknown) (unknown) Total Bilirubin 0.4 (0.2-1.3) mg/dL (units unknown) (unknown) (unknown) (no date) (unknown) (unknown) Total Protein (6.3-8.2) g/dL (units unknown) (unknown) (unknown) (no date) (unknown) (unknown) Total Protein 7.3 (6.3-8.2) g/dL (units unknown) (unknown) (unknown) (no date) (unknown) (unknown) Tremor ?> 1 = Not visible, but can be felt fingertip to fingertip (units unknown) (unknown) (unknown) (no date) (unknown) (unknown) U Benzodiazepines Scrn (Negative) (units unknown) (unknown) (unknown) (no date) (unknown) (unknown) U Benzodiazepines Scrn Negative (Negative) (units unknown) (unknown) (unknown) (no date) (unknown) (unknown) U Marijuana (THC) Screen (Negative) (units unknown) (unknown) (unknown) (no date) (unknown) (unknown) U Marijuana (THC) Screen Negative (Negative) (units unknown) (unknown) (unknown) (no date) (unknown) (unknown) U Methamphetamines Scrn (Negative) (units unknown) (unknown) (unknown) (no date) (unknown) (unknown) U Methamphetamines Scrn Negative (Negative) (units unknown) (unknown) (unknown) (no date) (unknown) (unknown) U Opiates 300ng/mL cut (Negative) (units unknown) (unknown) (unknown) (no date) (unknown) (unknown) U Opiates 300ng/mL cut Negative (Negative) (units unknown) (unknown) (unknown) (no date) (unknown) (unknown) U Tricyclic Antidepress (Negative) (units unknown) (unknown) (unknown) (no date) (unknown) (unknown) U Tricyclic Antidepress Negative (Negative) (units unknown) (unknown) (unknown) (no date) (unknown) (unknown) Ur Amphetamines Screen (Negative) (units unknown) (unknown) (unknown) (no date) (unknown) (unknown) Ur Amphetamines Screen Negative (Negative) (units unknown) (unknown) (unknown) (no date) (unknown) (unknown) Ur Barbiturates Screen (Negative) (units unknown) (unknown) (unknown) (no date) (unknown) (unknown) Ur Barbiturates Screen Negative (Negative) (units unknown) (unknown) (unknown) (no date) (unknown) (unknown) Ur Culture Indicated ? Specimen cultured (units unknown) (unknown) (unknown) (no date) (unknown) (unknown) Ur Culture Indicated? (units unknown) (unknown) (unknown) (no date) (unknown) (unknown) Ur MDMA Scrn (Ecstasy) (Negative) (units unknown) (unknown) (unknown) (no date) (unknown) (unknown) Ur MDMA Scrn (Ecstasy) Negative (Negative) (units unknown) (unknown) (unknown) (no date) (unknown) (unknown) Ur Oxycodone Screen (Negative) (units unknown) (unknown) (unknown) (no date) (unknown) (unknown) Ur Oxycodone Screen Negative (Negative) (units unknown) (unknown) (unknown) (no date) (unknown) (unknown) Ur Phencyclidine Scr n (Negative) (units unknown) (unknown) (unknown) (no date) (unknown) (unknown) Ur Phencyclidine Scr n Negative (Negative) (units unknown) (unknown) (unknown) (no date) (unknown) (unknown) Ur Squamous Epith Cells (0-5/HPF) (units unknown) (unknown) (unknown) (no date) (unknown) (unknown) Ur Squamous Epith Cells 1-5 /hpf (0-5/HPF) (units unknown) (unknown) (unknown) (no date) (unknown) (unknown) Urine Bacteria (None) (units unknown) (unknown) (unknown) (no date) (unknown) (unknown) Urine Bacteria Many (>30) H (None) (units unknown) (unknown) (unknown) (no date) (unknown) (unknown) Urine Cocaine Screen (Negative) (units unknown) (unknown) (unknown) (no date) (unknown) (unknown) Urine Cocaine Screen Negative (Negative) (units unknown) (unknown) (unknown) (no date) (unknown) (unknown) Urine Dip (units unknown) (unknown) (unknown) (no date) (unknown) (unknown) Urine Methadone Screen (Negative) (units unknown) (unknown) (unknown) (no date) (unknown) (unknown) Urine Methadone Screen Negative (Negative) (units unknown) (unknown) (unknown) (no date) (unknown) (unknown) Urine RBC (0-5/HPF) (units unknown) (unknown) (unknown) (no date) (unknown) (unknown) Urine RBC 1-5/hpf (0-5/HPF) (units unknown) (unknown) (unknown) (no date) (unknown) (unknown) Urine Specific [place] 1.015 (units unknown) (unknown) (unknown) (no date) (unknown) (unknown) Urine WBC (0-5/HPF) (units unknown) (unknown) (unknown) (no date) (unknown) (unknown) Urine WBC 1-5/hpf (0-5/HPF) (units unknown) (unknown) (unknown) (no date) (unknown) (unknown) Urine microscopy wit h many bacteria, pending for culture, will treat for acute (units unknown) (unknown) (unknown) (no date) (unknown) (unknown) Visual disturbances ?> 1 = Very mild sensitivity (units unknown) (unknown) (unknown) (no date) (unknown) (unknown) Vital Signs - 8 hr (units unknown) (unknown) (unknown) (no date) (unknown) (unknown) Vital Signs (units unknown) (unknown) (unknown) (no date) (unknown) (unknown) Vital signs: (units unknown) (unknown) (unknown) (no date) (unknown) (unknown) WBC (4.5-11.0) X103/uL (units unknown) (unknown) (unknown) (no date) (unknown) (unknown) WBC 3.3 L (4.5-11.0) X103/uL (units unknown) (unknown) (unknown) (no date) (unknown) (unknown) [1900] ([place]) Patient received in sign out [facility] [employer]. I have reviewed the (units unknown) (unknown) (unknown) (no date) (unknown) (unknown) [Embedded Image Not Available] (units unknown) (unknown) (unknown) (no date) (unknown) (unknown) [METOCLOPRAMIDE] (units unknown) (unknown) (unknown) (no date) (unknown) (unknown) acceptable. She is nauseated, without vomiting, received Zofran previously and (units unknown) (unknown) (unknown) (no date) (unknown) (unknown) acetaminophen 325 mg tablet 325 mg PO Q6H PRN pain #20 tabs 02/05/20 (units unknown) (unknown) (unknown) (no date) (unknown) (unknown) alcohol in 300s, she was last here in the emergency department in May of (units unknown) (unknown) (unknown) (no date) (unknown) (unknown) alcohol intake frequency: 3 or more drinks per day (units unknown) (unknown) (unknown) (no date) (unknown) (unknown) alcohol intake: former (units unknown) (unknown) (unknown) (no date) (unknown) (unknown) alcohol level below 0.08 to be considered for placement there. (units unknown) (unknown) (unknown) (no date) (unknown) (unknown) and below (units unknown) (unknown) (unknown) (no date) (unknown) (unknown) and she drinking daily since this happened. She wants rehab. She has been (units unknown) (unknown) (unknown) (no date) (unknown) (unknown) anxious, intoxicated and now withdrawing. pleasant and cooperative (units unknown) (unknown) (unknown) (no date) (unknown) (unknown) appropriate candidat e for outpatient treatment and will require hospitalization (units unknown) (unknown) (unknown) (no date) (unknown) (unknown) are currently no available beds. Patient resting comfortably (units unknown) (unknown) (unknown) (no date) (unknown) (unknown) arrhythmia, or acute ischemic changes. (units unknown) (unknown) (unknown) (no date) (unknown) (unknown) at extension and states that she feels symptoms of alcohol withdrawal. Denies (units unknown) (unknown) (unknown) (no date) (unknown) (unknown) being depressed at this time, CIWA is an 8. (units unknown) (unknown) (unknown) (no date) (unknown) (unknown) bpm with rightward axis and normal intervals. No STEMI, ST segment changes, (units unknown) (unknown) (unknown) (no date) (unknown) (unknown) clinical course and performed an independent history and physical exam. Patient (units unknown) (unknown) (unknown) (no date) (unknown) (unknown) condition (units unknown) (unknown) (unknown) (no date) (unknown) (unknown) current occupational exposures/hazards: Yes (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 with Pandemic ) (units unknown) (unknown) (unknown) (no date) (unknown) (unknown) cystitis without hematuria (units unknown) (unknown) (unknown) (no date) (unknown) (unknown) cystitis (units unknown) (unknown) (unknown) (no date) (unknown) (unknown) cystitis, she is p.o . tolerant, still pending lab work (units unknown) (unknown) (unknown) (no date) (unknown) (unknown) deliver since it is after 17:00 and the diet order was ordered at 17:30. [facility] (units unknown) (unknown) (unknown) (no date) (unknown) (unknown) detox 11 times, states that it has taking Antabuse, Librium, Ativan, she denies (units unknown) (unknown) (unknown) (no date) (unknown) (unknown) detox as well. (units unknown) (unknown) (unknown) (no date) (unknown) (unknown) diarrhea or current stool changes. (units unknown) (unknown) (unknown) (no date) (unknown) (unknown) diphenhydramine HCl 25 mg capsule 25 mg PO BEDTIME PRN insomnia #20 02/05/20 (units unknown) (unknown) (unknown) (no date) (unknown) (unknown) docusate sodium 100 mg capsule 100 mg PO BID #30 caps 02/05/20 (units unknown) (unknown) (unknown) (no date) (unknown) (unknown) draw her labs (units unknown) (unknown) (unknown) (no date) (unknown) (unknown) education level: college (units unknown) (unknown) (unknown) (no date) (unknown) (unknown) electrolyte abnormalities. 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[employer] (units unknown) (unknown) (unknown) (no date) (unknown) (unknown) fidgeting (units unknown) (unknown) (unknown) (no date) (unknown) (unknown) fluid, EtOH, and CIWA, ordered 2 mg of IV lorazepam for patient's symptoms, (units unknown) (unknown) (unknown) (no date) (unknown) (unknown) for aggressive treatment stabilization of her potentially life-threatening (units unknown) (unknown) (unknown) (no date) (unknown) (unknown) for alcohol related complaints through 2019, and she presented to the [facility] (units unknown) (unknown) (unknown) (no date) (unknown) (unknown) from social work is aware and pending her lab work to arrange for inpatient (units unknown) (unknown) (unknown) (no date) (unknown) (unknown) go to detox. She is currently intoxicated endorses symptoms of alcohol (units unknown) (unknown) (unknown) (no date) (unknown) (unknown) her urine microscopy came back positive for many bacteria, will treat for acute (units unknown) (unknown) (unknown) (no date) (unknown) (unknown) household members: spouse and children (units unknown) (unknown) (unknown) (no date) (unknown) (unknown) hydrated. (units unknown) (unknown) (unknown) (no date) (unknown) (unknown) hydrocodone [HYDROCODONE] AdvReac Unknown VOMITING Verified 07/12/22 16:18 (units unknown) (unknown) (unknown) (no date) (unknown) (unknown) hyroid studies are still pending. No significant findings to her CMP. No (units unknown) (unknown) (unknown) (no date) (unknown) (unknown) ibuprofen 600 mg tablet 600 mg PO Q6HR PRN Pain, Mild 07/04/20 (units unknown) (unknown) (unknown) (no date) (unknown) (unknown) intoxicated, pleasant, interactive and comfortable although active, anxious and (units unknown) (unknown) (unknown) (no date) (unknown) (unknown) is 338, COVID PCR wa s negative, drug screen is negative for all tested agents, t (units unknown) (unknown) (unknown) (no date) (unknown) (unknown) is 338, COVID PCR wa s negative, drug screen is negative for all tested agents, (units unknown) (unknown) (unknown) (no date) (unknown) (unknown) is allergic to Reglan, will dose with another 5 mg of Zofran, no QT prolongation (units unknown) (unknown) (unknown) (no date) (unknown) (unknown) knowing if she is cox d phenobarbital in the past. (units unknown) (unknown) (unknown) (no date) (unknown) (unknown) limited history currently due to intoxication. She states that she is recently (units unknown) (unknown) (unknown) (no date) (unknown) (unknown) lorazepam at 2 mg fo r this. (units unknown) (unknown) (unknown) (no date) (unknown) (unknown) marital status: (units unknown) (unknown) (unknown) (no date) (unknown) (unknown) metoclopramide Allergy Mild RASH/HIVES Verified 07/12/22 16:18 (units unknown) (unknown) (unknown) (no date) (unknown) (unknown) mild anemia but improved from her prior with H+H of 11.5 and 35.3, no evidence (units unknown) (unknown) (unknown) (no date) (unknown) (unknown) months. She denies any recent injuries, denies chance of , denies any (units unknown) (unknown) (unknown) (no date) (unknown) (unknown) nausea vomiting or abdominal pain at this time. Denies any vomiting home or (units unknown) (unknown) (unknown) (no date) (unknown) (unknown) number of children: 1 (units unknown) (unknown) (unknown) (no date) (unknown) (unknown) numbness (units unknown) (unknown) (unknown) (no date) (unknown) (unknown) occupational status: employed (units unknown) (unknown) (unknown) (no date) (unknown) (unknown) of bleeding anywhere , CMP (units unknown) (unknown) (unknown) (no date) (unknown) (unknown) on her EKG, patient is alert and oriented x3, complaining of feeling poorly and (units unknown) (unknown) (unknown) (no date) (unknown) (unknown) ondansetron 4 mg disintegrating 4 mg PO Q6H PRN nausea and 06/12/22 (units unknown) (unknown) (unknown) (no date) (unknown) (unknown) ondansetron 4 mg disintegrating 4 mg PO Q8H PRN nausea and 01/01/20 (units unknown) (unknown) (unknown) (no date) (unknown) (unknown) ondansetron 4 mg disintegrating 4 mg PO Q8H PRN nausea and 02/05/20 (units unknown) (unknown) (unknown) (no date) (unknown) (unknown) ordered p.o. Ativan for her symptoms and ask our into call lab to come up and (units unknown) (unknown) (unknown) (no date) (unknown) (unknown) other ingestions, is pleasant, seeking help with her intoxication and wishes to (units unknown) (unknown) (unknown) (no date) (unknown) (unknown) patient's is at the bedside offering support, she raises nausea, another (units unknown) (unknown) (unknown) (no date) (unknown) (unknown) prenat.vits,otis,min- i thang-folic 1 tab PO DAILY 12/30/19 07/03/20 (units unknown) (unknown) (unknown) (no date) (unknown) (unknown) relapsed due to a divorce with her . She used to be a frequent visitor (units unknown) (unknown) (unknown) (no date) (unknown) (unknown) resting comfortably, currently pursuing placement at [facility] (units unknown) (unknown) (unknown) (no date) (unknown) (unknown) scores of 10 or less by 4 hours a piece and must also have blood (units unknown) (unknown) (unknown) (no date) (unknown) (unknown) second hand exposure : No (growing up as a child - not currently) (units unknown) (unknown) (unknown) (no date) (unknown) (unknown) significant tremor o r tongue fasciculation, she has a mild tremor with her arms (units unknown) (unknown) (unknown) (no date) (unknown) (unknown) social work and orders are pending (units unknown) (unknown) (unknown) (no date) (unknown) (unknown) special renee needs: No (units unknown) (unknown) (unknown) (no date) (unknown) (unknown) substance abuse, alcohol intoxication, psychosis, mood disorder, depression (units unknown) (unknown) (unknown) (no date) (unknown) (unknown) substance use type: does not use (units unknown) (unknown) (unknown) (no date) (unknown) (unknown) tablet vomiting #14 tabs (units unknown) (unknown) (unknown) (no date) (unknown) (unknown) tablet vomiting #20 tabs (units unknown) (unknown) (unknown) (no date) (unknown) (unknown) tablet vomiting #30 tabs (units unknown) (unknown) (unknown) (no date) (unknown) (unknown) tenderness or exquisite tenderness with exam. (units unknown) (unknown) (unknown) (no date) (unknown) (unknown) that she drinks vodk a and admits to drinking heavily today, states that she took (units unknown) (unknown) (unknown) (no date) (unknown) (unknown) the bottle upside down and started checking from it. She states that she drank (units unknown) (unknown) (unknown) (no date) (unknown) (unknown) thyroid studies are still pending. No significant findings to her CMP. No (units unknown) (unknown) (unknown) (no date) (unknown) (unknown) tramadol 50 mg table t 50 mg PO Q6H PRN pain #10 tabs 06/12/22 (units unknown) (unknown) (unknown) (no date) (unknown) (unknown) tremors, no tachycardia, her CIWA is currently 10, ordered another p.o. dose of (units unknown) (unknown) (unknown) (no date) (unknown) (unknown) urgency or flank pain, endorses nausea without vomiting. Patient has been to (units unknown) (unknown) (unknown) (no date) (unknown) (unknown) well as prior record s if available. (units unknown) (unknown) (unknown) (no date) (unknown) (unknown) wheezing, stridor, o r abnormal breath sounds. No retractions or tachypnea. (units unknown) (unknown) (unknown) (no date) (unknown) (unknown) withdrawal and a newly calculated CIWA approaching 20. Patient is no longer an (units unknown) (unknown) (unknown) (no date) (unknown) (unknown) withdrawal. Patient states that she takes Seroquel 300 mg at night as well as (units unknown) (unknown) Result panel [id number] (unknown) (no date) (unknown) (unknown) (no value) (units unknown) (unknown) (unknown) (no date) (unknown) (unknown) (1-3) #30 tabs (units unknown) (unknown) (unknown) (no date) (unknown) (unknown) (Benadryl) caps (units unknown) (unknown) (unknown) (no date) (unknown) (unknown) (Colace) (units unknown) (unknown) (unknown) (no date) (unknown) (unknown) (Tylenol) (units unknown) (unknown) (unknown) (no date) (unknown) (unknown) (past 8 hours): (units unknown) (unknown) (unknown) (no date) (unknown) (unknown) - She received multiple doses of oral ativan, IV was placed in the ED. (units unknown) (unknown) (unknown) (no date) (unknown) (unknown) [id number] (units unknown) (unknown) (unknown) (no date) (unknown) (unknown) 01:28 07/13/22 (units unknown) (unknown) (unknown) (no date) (unknown) (unknown) 01:50 (units unknown) (unknown) (unknown) (no date) (unknown) (unknown) 07/03/20 Rx (units unknown) (unknown) (unknown) (no date) (unknown) (unknown) 02:00 07/13/22 (units unknown) (unknown) (unknown) (no date) (unknown) (unknown) 02:14 07/13/22 (units unknown) (unknown) (unknown) (no date) (unknown) (unknown) 02:14 (units unknown) (unknown) (unknown) (no date) (unknown) (unknown) 02:30 07/13/22 (units unknown) (unknown) (unknown) (no date) (unknown) (unknown) 07/12/22 07/12/22 07/12/22 (units unknown) (unknown) (unknown) (no date) (unknown) (unknown) 07/12/22 19:15 (units unknown) (unknown) (unknown) (no date) (unknown) (unknown) 07/12/22 (units unknown) (unknown) (unknown) (no date) (unknown) (unknown) 07/13/22 (units unknown) (unknown) (unknown) (no date) (unknown) (unknown) 03:00 07/13/22 (units unknown) (unknown) (unknown) (no date) (unknown) (unknown) 03:30 (units unknown) (unknown) (unknown) (no date) (unknown) (unknown) 04:00 07/13/22 (units unknown) (unknown) (unknown) (no date) (unknown) (unknown) 04:30 07/13/22 (units unknown) (unknown) (unknown) (no date) (unknown) (unknown) 05:00 (units unknown) (unknown) (unknown) (no date) (unknown) (unknown) 05:30 07/13/22 (units unknown) (unknown) (unknown) (no date) (unknown) (unknown) 05:54 07/13/22 (units unknown) (unknown) (unknown) (no date) (unknown) (unknown) 05:54 (units unknown) (unknown) (unknown) (no date) (unknown) (unknown) 06:00 07/13/22 (units unknown) (unknown) (unknown) (no date) (unknown) (unknown) 06:00 (units unknown) (unknown) (unknown) (no date) (unknown) (unknown) 16:32 16:32 16:32 (units unknown) (unknown) (unknown) (no date) (unknown) (unknown) 19:15 19:15 19:15 (units unknown) (unknown) (unknown) (no date) (unknown) (unknown) 23:30 07/13/22 (units unknown) (unknown) (unknown) (no date) (unknown) (unknown) 750 mL of time.? She just she has nothing to do but relapsed.? This 3 weeks ago (units unknown) (unknown) (unknown) (no date) (unknown) (unknown) 8.0 AST 67 urinalysi s indicated many bacteria alcohol level was 338 and COVID-19 (units unknown) (unknown) (unknown) (no date) (unknown) (unknown) ALT 21 (units unknown) (unknown) (unknown) (no date) (unknown) (unknown) ALT (units unknown) (unknown) (unknown) (no date) (unknown) (unknown) AST 67 H (units unknown) (unknown) (unknown) (no date) (unknown) (unknown) AST (units unknown) (unknown) (unknown) (no date) (unknown) (unknown) Abd: soft, non-tender, normoactive BTs (units unknown) (unknown) (unknown) (no date) (unknown) (unknown) Acetaminophen < 10 (units unknown) (unknown) (unknown) (no date) (unknown) (unknown) Acetaminophen (units unknown) (unknown) (unknown) (no date) (unknown) (unknown) Acute alcohol intoxication and withdrawal, present on admission (units unknown) (unknown) (unknown) (no date) (unknown) (unknown) Age/Sex: 31 / F (units unknown) (unknown) (unknown) (no date) (unknown) (unknown) Albumin 4.3 (units unknown) (unknown) (unknown) (no date) (unknown) (unknown) Albumin (units unknown) (unknown) (unknown) (no date) (unknown) (unknown) Albumin/Globulin Ratio 1.4 (units unknown) (unknown) (unknown) (no date) (unknown) (unknown) Albumin/Globulin Ratio (units unknown) (unknown) (unknown) (no date) (unknown) (unknown) Alcoholism (units unknown) (unknown) (unknown) (no date) (unknown) (unknown) Alkaline Phosphatase 98 (units unknown) (unknown) (unknown) (no date) (unknown) (unknown) Alkaline Phosphatase (units unknown) (unknown) (unknown) (no date) (unknown) (unknown) Allergies (units unknown) (unknown) (unknown) (no date) (unknown) (unknown) Allergy/AdvReac Type Severity Reaction Status Date / Time (units unknown) (unknown) (unknown) (no date) (unknown) (unknown) Anemia (-2018) (units unknown) (unknown) (unknown) (no date) (unknown) (unknown) Assessment + Plan narrative: (units unknown) (unknown) (unknown) (no date) (unknown) (unknown) Assessment + Plan (units unknown) (unknown) (unknown) (no date) (unknown) (unknown) BUN 9 (units unknown) (unknown) (unknown) (no date) (unknown) (unknown) BUN (units unknown) (unknown) (unknown) (no date) (unknown) (unknown) BUN/Creatinine Ratio 11.0 (units unknown) (unknown) (unknown) (no date) (unknown) (unknown) BUN/Creatinine Ratio (units unknown) (unknown) (unknown) (no date) (unknown) (unknown) Baso # (Auto) 0 (units unknown) (unknown) (unknown) (no date) (unknown) (unknown) Baso # (Auto) (units unknown) (unknown) (unknown) (no date) (unknown) (unknown) Baso % (Auto) 0.9 (units unknown) (unknown) (unknown) (no date) (unknown) (unknown) Baso % (Auto) (units unknown) (unknown) (unknown) (no date) (unknown) (unknown) Been Physically Hurt or No (units unknown) (unknown) (unknown) (no date) (unknown) (unknown) Blood Pressure 102/5 9 L (units unknown) (unknown) (unknown) (no date) (unknown) (unknown) Blood Pressure 93/54 L (units unknown) (unknown) (unknown) (no date) (unknown) (unknown) Blood Pressure 99/52 L (units unknown) (unknown) (unknown) (no date) (unknown) (unknown) Blood Pressure 99/58 L (units unknown) (unknown) (unknown) (no date) (unknown) (unknown) Blood Pressure [Left Arm] 95/53 L (units unknown) (unknown) (unknown) (no date) (unknown) (unknown) Blood Pressure [Left Arm] (units unknown) (unknown) (unknown) (no date) (unknown) (unknown) Blood Pressure (units unknown) (unknown) (unknown) (no date) (unknown) (unknown) COVID-19 status: Negative (units unknown) (unknown) (unknown) (no date) (unknown) (unknown) COVID-19 (units unknown) (unknown) (unknown) (no date) (unknown) (unknown) CV: RRR, no murmur o r rubs (units unknown) (unknown) (unknown) (no date) (unknown) (unknown) Calcium 8.0 L (units unknown) (unknown) (unknown) (no date) (unknown) (unknown) Calcium (units unknown) (unknown) (unknown) (no date) (unknown) (unknown) Carbon Dioxide 23 (units unknown) (unknown) (unknown) (no date) (unknown) (unknown) Carbon Dioxide (units unknown) (unknown) (unknown) (no date) (unknown) (unknown) Chief complaint: Stress/Depression (units unknown) (unknown) (unknown) (no date) (unknown) (unknown) Chloride 104 (units unknown) (unknown) (unknown) (no date) (unknown) (unknown) Chloride (units unknown) (unknown) (unknown) (no date) (unknown) (unknown) Creatinine 0.82 (units unknown) (unknown) (unknown) (no date) (unknown) (unknown) Creatinine (units unknown) (unknown) (unknown) (no date) (unknown) (unknown) Critical Care time: (units unknown) (unknown) (unknown) (no date) (unknown) (unknown) : 1990 Acct:[id number] (units unknown) (unknown) (unknown) (no date) (unknown) (unknown) Date Patient Seen: 07/13/22 (units unknown) (unknown) (unknown) (no date) (unknown) (unknown) Date of Service: 07/13/22 (units unknown) (unknown) (unknown) (no date) (unknown) (unknown) Environment (units unknown) (unknown) (unknown) (no date) (unknown) (unknown) Eos # (Auto) 0 (units unknown) (unknown) (unknown) (no date) (unknown) (unknown) Eos # (Auto) (units unknown) (unknown) (unknown) (no date) (unknown) (unknown) Eos % (Auto) 0.3 L (units unknown) (unknown) (unknown) (no date) (unknown) (unknown) Eos % (Auto) (units unknown) (unknown) (unknown) (no date) (unknown) (unknown) Estimated GFR > 60 (units unknown) (unknown) (unknown) (no date) (unknown) (unknown) Estimated GFR (units unknown) (unknown) (unknown) (no date) (unknown) (unknown) Ethyl Alcohol 338 H (units unknown) (unknown) (unknown) (no date) (unknown) (unknown) Ethyl Alcohol (units unknown) (unknown) (unknown) (no date) (unknown) (unknown) Exam Narrative: (units unknown) (unknown) (unknown) (no date) (unknown) (unknown) Exam (units unknown) (unknown) (unknown) (no date) (unknown) (unknown) Extremities: moves all 4 extremities, is ambulatory, negative Lenny?s sign (units unknown) (unknown) (unknown) (no date) (unknown) (unknown) Family + Social History (units unknown) (unknown) (unknown) (no date) (unknown) (unknown) Family History (units unknown) (unknown) (unknown) (no date) (unknown) (unknown) Family/Other Alcoholism (units unknown) (unknown) (unknown) (no date) (unknown) (unknown) Family/Other Diabete s mellitus (units unknown) (unknown) (unknown) (no date) (unknown) (unknown) Father Alcoholism (units unknown) (unknown) (unknown) (no date) (unknown) (unknown) Feels Safe in [place] t Yes (units unknown) (unknown) (unknown) (no date) (unknown) (unknown) Free T4 0.93 (units unknown) (unknown) (unknown) (no date) (unknown) (unknown) Free T4 (units unknown) (unknown) (unknown) (no date) (unknown) (unknown) Gen: Alert, oriented , well-developed 31 y.o. female, NAD (units unknown) (unknown) (unknown) (no date) (unknown) (unknown) Globulin 3.0 (units unknown) (unknown) (unknown) (no date) (unknown) (unknown) Globulin (units unknown) (unknown) (unknown) (no date) (unknown) (unknown) Glucose 111 H (units unknown) (unknown) (unknown) (no date) (unknown) (unknown) Glucose (units unknown) (unknown) (unknown) (no date) (unknown) (unknown) Grandfather Smoker (units unknown) (unknown) (unknown) (no date) (unknown) (unknown) Grandfather Unknown whether patient has any health problems (units unknown) (unknown) (unknown) (no date) (unknown) (unknown) Grandmother Diabetes mellitus (units unknown) (unknown) (unknown) (no date) (unknown) (unknown) Grandmother Hypoglycemia (units unknown) (unknown) (unknown) (no date) (unknown) (unknown) H/O dilation and curettage (-12/14/16) (units unknown) (unknown) (unknown) (no date) (unknown) (unknown) H/O wisdom tooth extraction () (units unknown) (unknown) (unknown) (no date) (unknown) (unknown) HEENT: normocephalic , atraumatic, conjunctiva clear, pinpoint pupils, sclera (units unknown) (unknown) (unknown) (no date) (unknown) (unknown) Hct 35.3 L (units unknown) (unknown) (unknown) (no date) (unknown) (unknown) Hct (units unknown) (unknown) (unknown) (no date) (unknown) (unknown) Hgb 11.5 L (units unknown) (unknown) (unknown) (no date) (unknown) (unknown) Hgb (units unknown) (unknown) (unknown) (no date) (unknown) (unknown) History + Physical Report (units unknown) (unknown) (unknown) (no date) (unknown) (unknown) History of Present Illness (units unknown) (unknown) (unknown) (no date) (unknown) (unknown) Home Medications and Allergies (units unknown) (unknown) (unknown) (no date) (unknown) (unknown) Home Medications (units unknown) (unknown) (unknown) (no date) (unknown) (unknown) I spent a total of [ ] minutes of critical care time on this patient's care (units unknown) (unknown) (unknown) (no date) (unknown) (unknown) Insomnia (units unknown) (unknown) (unknown) (no date) (unknown) (unknown) [address] [id number] (units unknown) (unknown) (unknown) (no date) (unknown) (unknown) Laboratory Results - last 24 hr (units unknown) (unknown) (unknown) (no date) (unknown) (unknown) Labs (units unknown) (unknown) (unknown) (no date) (unknown) (unknown) Labs: (units unknown) (unknown) (unknown) (no date) (unknown) (unknown) Lymph # (Auto) 1700 (units unknown) (unknown) (unknown) (no date) (unknown) (unknown) Lymph # (Auto) (units unknown) (unknown) (unknown) (no date) (unknown) (unknown) Lymph % (Auto) 50.6 H (units unknown) (unknown) (unknown) (no date) (unknown) (unknown) Lymph % (Auto) (units unknown) (unknown) (unknown) (no date) (unknown) (unknown) MCH 26.0 (units unknown) (unknown) (unknown) (no date) (unknown) (unknown) MCH (units unknown) (unknown) (unknown) (no date) (unknown) (unknown) MCHC 32.7 (units unknown) (unknown) (unknown) (no date) (unknown) (unknown) MCHC (units unknown) (unknown) (unknown) (no date) (unknown) (unknown) MCV 79.5 L (units unknown) (unknown) (unknown) (no date) (unknown) (unknown) MCV (units unknown) (unknown) (unknown) (no date) (unknown) (unknown) Medical History (units unknown) (unknown) (unknown) (no date) (unknown) (unknown) Medication Instructions Recorded Confirmed Type (units unknown) (unknown) (unknown) (no date) (unknown) (unknown) Meds (units unknown) (unknown) (unknown) (no date) (unknown) (unknown) Menometrorrhagia (units unknown) (unknown) (unknown) (no date) (unknown) (unknown) [place] # (Auto) 100 (units unknown) (unknown) (unknown) (no date) (unknown) (unknown) [place] # (Auto) (units unknown) (unknown) (unknown) (no date) (unknown) (unknown) [place] % (Auto) 2.7 L (units unknown) (unknown) (unknown) (no date) (unknown) (unknown) [place] % (Auto) (units unknown) (unknown) (unknown) (no date) (unknown) (unknown) Mother Diabetes mellitus (units unknown) (unknown) (unknown) (no date) (unknown) (unknown) Narrative (units unknown) (unknown) (unknown) (no date) (unknown) (unknown) Narrative: (units unknown) (unknown) (unknown) (no date) (unknown) (unknown) Neck: supple, full ROM, no JVD, trachea is midline (units unknown) (unknown) (unknown) (no date) (unknown) (unknown) Neuro: very lethargi c and unable to hold a meaningful conversation, speech is (units unknown) (unknown) (unknown) (no date) (unknown) (unknown) Neut # (Auto) 1500 (units unknown) (unknown) (unknown) (no date) (unknown) (unknown) Neut # (Auto) (units unknown) (unknown) (unknown) (no date) (unknown) (unknown) Neut % (Auto) 45.5 L (units unknown) (unknown) (unknown) (no date) (unknown) (unknown) Neut % (Auto) (units unknown) (unknown) (unknown) (no date) (unknown) (unknown) Obesity (units unknown) (unknown) (unknown) (no date) (unknown) (unknown) Objective (units unknown) (unknown) (unknown) (no date) (unknown) (unknown) Overweight (units unknown) (unknown) (unknown) (no date) (unknown) (unknown) Oxygen Delivery Method Room Air Room Air (units unknown) (unknown) (unknown) (no date) (unknown) (unknown) Oxygen Delivery Method Room Air (units unknown) (unknown) (unknown) (no date) (unknown) (unknown) Oxygen Delivery Method (units unknown) (unknown) (unknown) (no date) (unknown) (unknown) PCR done on July was negative. (units unknown) (unknown) (unknown) (no date) (unknown) (unknown) Patient History (units unknown) (unknown) (unknown) (no date) (unknown) (unknown) Patient is heavily sedated, falling asleep during my visit and unable to provide (units unknown) (unknown) (unknown) (no date) (unknown) (unknown) Patient: Sarah Connors MR#: M (units unknown) (unknown) (unknown) (no date) (unknown) (unknown) Plt Count 226 (units unknown) (unknown) (unknown) (no date) (unknown) (unknown) Plt Count (units unknown) (unknown) (unknown) (no date) (unknown) (unknown) Potassium 3.9 (units unknown) (unknown) (unknown) (no date) (unknown) (unknown) Potassium (units unknown) (unknown) (unknown) (no date) (unknown) (unknown) Provider: Aide Haney (units unknown) (unknown) (unknown) (no date) (unknown) (unknown) Psyche: appears to b e hallucinating (units unknown) (unknown) (unknown) (no date) (unknown) (unknown) Pulse Oximetry 97 100 (units unknown) (unknown) (unknown) (no date) (unknown) (unknown) Pulse Oximetry 97 98 98 (units unknown) (unknown) (unknown) (no date) (unknown) (unknown) Pulse Oximetry 97 (units unknown) (unknown) (unknown) (no date) (unknown) (unknown) Pulse Oximetry 98 97 96 (units unknown) (unknown) (unknown) (no date) (unknown) (unknown) Pulse Oximetry 98 98 (units unknown) (unknown) (unknown) (no date) (unknown) (unknown) Pulse Oximetry 99 97 97 (units unknown) (unknown) (unknown) (no date) (unknown) (unknown) Pulse Rate 119 H (units unknown) (unknown) (unknown) (no date) (unknown) (unknown) Pulse Rate 120 H 122 H (units unknown) (unknown) (unknown) (no date) (unknown) (unknown) Pulse Rate 90 99 H 109 H (units unknown) (unknown) (unknown) (no date) (unknown) (unknown) Pulse Rate 94 H 92 H 88 (units unknown) (unknown) (unknown) (no date) (unknown) (unknown) Pulse Rate 97 H 87 (units unknown) (unknown) (unknown) (no date) (unknown) (unknown) Pulse Rate 98 H 101 H 109 H (units unknown) (unknown) (unknown) (no date) (unknown) (unknown) RBC 4.44 (units unknown) (unknown) (unknown) (no date) (unknown) (unknown) RBC (units unknown) (unknown) (unknown) (no date) (unknown) (unknown) RDW 17.3 H (units unknown) (unknown) (unknown) (no date) (unknown) (unknown) RDW (units unknown) (unknown) (unknown) (no date) (unknown) (unknown) ROS: Yes unobtainabl e due to mental status (units unknown) (unknown) (unknown) (no date) (unknown) (unknown) Resp: Lungs CTA, non-labored breathing (units unknown) (unknown) (unknown) (no date) (unknown) (unknown) Respiratory Rate 16 18 (units unknown) (unknown) (unknown) (no date) (unknown) (unknown) Respiratory Rate (units unknown) (unknown) (unknown) (no date) (unknown) (unknown) Result date/Date tested (Pos, Neg/Pending): 07/12/22 (units unknown) (unknown) (unknown) (no date) (unknown) (unknown) Review of Systems (units unknown) (unknown) (unknown) (no date) (unknown) (unknown) S/P myringotomy with insertion of tube (units unknown) (unknown) (unknown) (no date) (unknown) (unknown) SARS-CoV-2 (PCR) Negative (units unknown) (unknown) (unknown) (no date) (unknown) (unknown) SARS-CoV-2 (PCR) (units unknown) (unknown) (unknown) (no date) (unknown) (unknown) (spontaneous vaginal delivery) (-09/05/18) (units unknown) (unknown) (unknown) (no date) (unknown) (unknown) Safety + Behavioral: (units unknown) (unknown) (unknown) (no date) (unknown) (unknown) Salicylates < 1.0 (units unknown) (unknown) (unknown) (no date) (unknown) (unknown) Salicylates (units unknown) (unknown) (unknown) (no date) (unknown) (unknown) She is afebrile, blood pressure 93/54 heart rate 119 respiratory rate 18 oxygen (units unknown) (unknown) (unknown) (no date) (unknown) (unknown) Signed By: (units unknown) (unknown) (unknown) (no date) (unknown) (unknown) Skin: no lesions or rashes, dry and intact (units unknown) (unknown) (unknown) (no date) (unknown) (unknown) Smoker (units unknown) (unknown) (unknown) (no date) (unknown) (unknown) [place] in the past.? She has been sober for a total of 18 (units unknown) (unknown) (unknown) (no date) (unknown) (unknown) Smoking Status Forme r smoker (units unknown) (unknown) (unknown) (no date) (unknown) (unknown) Social History: (units unknown) (unknown) (unknown) (no date) (unknown) (unknown) Sodium 140 (units unknown) (unknown) (unknown) (no date) (unknown) (unknown) Sodium (units unknown) (unknown) (unknown) (no date) (unknown) (unknown) Sarah Freemanis a 31-year-old female with history of alcohol abuse and appears to (units unknown) (unknown) (unknown) (no date) (unknown) (unknown) Sarah Connors is admitted to the inpatient ICU for further management of (units unknown) (unknown) (unknown) (no date) (unknown) (unknown) Substance Use Type does not use (units unknown) (unknown) (unknown) (no date) (unknown) (unknown) Suicidal Ideation Description None (units unknown) (unknown) (unknown) (no date) (unknown) (unknown) Surgical History (units unknown) (unknown) (unknown) (no date) (unknown) (unknown) TSH 1.24 (units unknown) (unknown) (unknown) (no date) (unknown) (unknown) TSH (units unknown) (unknown) (unknown) (no date) (unknown) (unknown) Threatened By a Person (units unknown) (unknown) (unknown) (no date) (unknown) (unknown) Time Patient Seen: 06:48 (units unknown) (unknown) (unknown) (no date) (unknown) (unknown) Time Spent With Patient (units unknown) (unknown) (unknown) (no date) (unknown) (unknown) Tobacco + Substance use: (units unknown) (unknown) (unknown) (no date) (unknown) (unknown) Tobacco type cigarettes (units unknown) (unknown) (unknown) (no date) (unknown) (unknown) Total Bilirubin 0.4 (units unknown) (unknown) (unknown) (no date) (unknown) (unknown) Total Bilirubin (units unknown) (unknown) (unknown) (no date) (unknown) (unknown) Total Protein 7.3 (units unknown) (unknown) (unknown) (no date) (unknown) (unknown) Total Protein (units unknown) (unknown) (unknown) (no date) (unknown) (unknown) U Benzodiazepines Scrn Negative (units unknown) (unknown) (unknown) (no date) (unknown) (unknown) U Benzodiazepines Scrn (units unknown) (unknown) (unknown) (no date) (unknown) (unknown) U Marijuana (THC) Screen Negative (units unknown) (unknown) (unknown) (no date) (unknown) (unknown) U Marijuana (THC) Screen (units unknown) (unknown) (unknown) (no date) (unknown) (unknown) U Methamphetamines Scrn Negative (units unknown) (unknown) (unknown) (no date) (unknown) (unknown) U Methamphetamines Scrn (units unknown) (unknown) (unknown) (no date) (unknown) (unknown) U Opiates 300ng/mL cut Negative (units unknown) (unknown) (unknown) (no date) (unknown) (unknown) U Opiates 300ng/mL cut (units unknown) (unknown) (unknown) (no date) (unknown) (unknown) U Tricyclic Antidepress Negative (units unknown) (unknown) (unknown) (no date) (unknown) (unknown) U Tricyclic Antidepress (units unknown) (unknown) (unknown) (no date) (unknown) (unknown) Ur Amphetamines Screen Negative (units unknown) (unknown) (unknown) (no date) (unknown) (unknown) Ur Amphetamines Screen (units unknown) (unknown) (unknown) (no date) (unknown) (unknown) Ur Barbiturates Screen Negative (units unknown) (unknown) (unknown) (no date) (unknown) (unknown) Ur Barbiturates Screen (units unknown) (unknown) (unknown) (no date) (unknown) (unknown) Ur Culture Indicated ? Specimen cultured (units unknown) (unknown) (unknown) (no date) (unknown) (unknown) Ur Culture Indicated? (units unknown) (unknown) (unknown) (no date) (unknown) (unknown) Ur MDMA Scrn (Ecstasy) Negative (units unknown) (unknown) (unknown) (no date) (unknown) (unknown) Ur MDMA Scrn (Ecstasy) (units unknown) (unknown) (unknown) (no date) (unknown) (unknown) Ur Oxycodone Screen Negative (units unknown) (unknown) (unknown) (no date) (unknown) (unknown) Ur Oxycodone Screen (units unknown) (unknown) (unknown) (no date) (unknown) (unknown) Ur Phencyclidine Scr n Negative (units unknown) (unknown) (unknown) (no date) (unknown) (unknown) Ur Phencyclidine Scrn (units unknown) (unknown) (unknown) (no date) (unknown) (unknown) Ur Squamous Epith Cells 1-5 /hpf (units unknown) (unknown) (unknown) (no date) (unknown) (unknown) Ur Squamous Epith Cells (units unknown) (unknown) (unknown) (no date) (unknown) (unknown) Urine Bacteria Many (>30) H (units unknown) (unknown) (unknown) (no date) (unknown) (unknown) Urine Bacteria (units unknown) (unknown) (unknown) (no date) (unknown) (unknown) Urine Cocaine Screen Negative (units unknown) (unknown) (unknown) (no date) (unknown) (unknown) Urine Cocaine Screen (units unknown) (unknown) (unknown) (no date) (unknown) (unknown) Urine Methadone Screen Negative (units unknown) (unknown) (unknown) (no date) (unknown) (unknown) Urine Methadone Screen (units unknown) (unknown) (unknown) (no date) (unknown) (unknown) Urine RBC 1-5/hpf (units unknown) (unknown) (unknown) (no date) (unknown) (unknown) Urine RBC (units unknown) (unknown) (unknown) (no date) (unknown) (unknown) Urine WBC 1-5/hpf (units unknown) (unknown) (unknown) (no date) (unknown) (unknown) Urine WBC (units unknown) (unknown) (unknown) (no date) (unknown) (unknown) Vital Signs (units unknown) (unknown) (unknown) (no date) (unknown) (unknown) WBC 3.3 L (units unknown) (unknown) (unknown) (no date) (unknown) (unknown) WBC (units unknown) (unknown) (unknown) (no date) (unknown) (unknown) [facility] emergency department on 06/18/2022 and a few days prior to that with a (units unknown) (unknown) (unknown) (no date) (unknown) (unknown) [Embedded Image Not Available] (units unknown) (unknown) (unknown) (no date) (unknown) (unknown) [METOCLOPRAMIDE] (units unknown) (unknown) (unknown) (no date) (unknown) (unknown) a history, except fo r 'I went on a castañeda' for 12 days. Per the ED notes, (units unknown) (unknown) (unknown) (no date) (unknown) (unknown) acetaminophen 325 mg tablet 325 mg PO Q6H PRN pain #20 tabs 02/05/20 07/03/20 Rx (units unknown) (unknown) (unknown) (no date) (unknown) (unknown) alcohol intake former (units unknown) (unknown) (unknown) (no date) (unknown) (unknown) alcohol intake frequency 3 or more drinks per day (units unknown) (unknown) (unknown) (no date) (unknown) (unknown) alcohol withdrawal. (units unknown) (unknown) (unknown) (no date) (unknown) (unknown) and she drinking daily since this happened.? She wants rehab.? She has been (units unknown) (unknown) (unknown) (no date) (unknown) (unknown) blood alcohol in 300s, she was last here in the emergency department in May (units unknown) (unknown) (unknown) (no date) (unknown) (unknown) but developed increasing agitation and now DTs. Her CIWA score went from 12 to (units unknown) (unknown) (unknown) (no date) (unknown) (unknown) diphenhydramine HCl 25 mg capsule 25 mg PO BEDTIME PRN insomnia #20 02/05/20 (units unknown) (unknown) (unknown) (no date) (unknown) (unknown) docusate sodium 100 mg capsule 100 mg PO BID #30 caps 02/05/20 (units unknown) (unknown) (unknown) (no date) (unknown) (unknown) have limited history currently due to intoxication.? She states that she is (units unknown) (unknown) (unknown) (no date) (unknown) (unknown) hemoglobin and hematocrit are 11.5 and 35.3 respectively glucose is 111 calcium (units unknown) (unknown) (unknown) (no date) (unknown) (unknown) household members spouse,children (units unknown) (unknown) (unknown) (no date) (unknown) (unknown) hydrocodone [HYDROCODONE] AdvReac Unknown VOMITING Verified 07/12/22 16:18 (units unknown) (unknown) (unknown) (no date) (unknown) (unknown) ibuprofen 600 mg tablet 600 mg PO Q6HR PRN Pain, Mild 07/04/20 Rx (units unknown) (unknown) (unknown) (no date) (unknown) (unknown) infection and had been given one dose of oral cephalexin for this. (units unknown) (unknown) (unknown) (no date) (unknown) (unknown) metoclopramide Allergy Mild RASH/HIVES Verified 07/12/22 16:18 (units unknown) (unknown) (unknown) (no date) (unknown) (unknown) months.' She remaine d in the ED awaiting a bed and was receiving oral Ativan, (units unknown) (unknown) (unknown) (no date) (unknown) (unknown) non-icteric, oral mucosa pink and moist (units unknown) (unknown) (unknown) (no date) (unknown) (unknown) of 2022 with similar symptoms.? She comes in complaining of needing help, states (units unknown) (unknown) (unknown) (no date) (unknown) (unknown) ondansetron 4 mg disintegrating 4 mg PO Q6H PRN nausea and 06/12/22 Rx (units unknown) (unknown) (unknown) (no date) (unknown) (unknown) ondansetron 4 mg disintegrating 4 mg PO Q8H PRN nausea and 01/01/20 07/03/20 Rx (units unknown) (unknown) (unknown) (no date) (unknown) (unknown) ondansetron 4 mg disintegrating 4 mg PO Q8H PRN nausea and 02/05/20 07/03/20 Rx (units unknown) (unknown) (unknown) (no date) (unknown) (unknown) over 20 and she was deemed to medically unstable for transfer to rehab, ED is (units unknown) (unknown) (unknown) (no date) (unknown) (unknown) prenat.vits,otis,min- i thang-folic 1 tab PO DAILY 12/30/19 07/03/20 History (units unknown) (unknown) (unknown) (no date) (unknown) (unknown) recently relapsed du e to a divorce with her .? She used to be a frequent (units unknown) (unknown) (unknown) (no date) (unknown) (unknown) requesting an ICU be d currently. She was also found to have a urinary tract (units unknown) (unknown) (unknown) (no date) (unknown) (unknown) saturation of 97% on room air she weighs 49.8 kg with a BMI of 20.1. WBC is 3.3 (units unknown) (unknown) (unknown) (no date) (unknown) (unknown) slurred (units unknown) (unknown) (unknown) (no date) (unknown) (unknown) tablet vomiting #14 tabs (units unknown) (unknown) (unknown) (no date) (unknown) (unknown) tablet vomiting #20 tabs (units unknown) (unknown) (unknown) (no date) (unknown) (unknown) tablet vomiting #30 tabs (units unknown) (unknown) (unknown) (no date) (unknown) (unknown) that she drinks vodk a and admits to drinking heavily today, states that she took (units unknown) (unknown) (unknown) (no date) (unknown) (unknown) the bottle upside down and started chucking from it.? She states that she drank (units unknown) (unknown) (unknown) (no date) (unknown) (unknown) today; this time is exclusive of procedural time. (units unknown) (unknown) (unknown) (no date) (unknown) (unknown) tramadol 50 mg table t 50 mg PO Q6H PRN pain #10 tabs 06/12/22 Rx (units unknown) (unknown) (unknown) (no date) (unknown) (unknown) visitor for alcohol related complaints through 2019, and she presented to the (units unknown) (unknown) Result panel 2193 (unknown) (no date) (unknown) (unknown) (no value) (units unknown) (unknown) (unknown) (no date) (unknown) (unknown) (1-3) #30 tabs (units unknown) (unknown) (unknown) (no date) (unknown) (unknown) (Benadryl) caps (units unknown) (unknown) (unknown) (no date) (unknown) (unknown) (Colace) (units unknown) (unknown) (unknown) (no date) (unknown) (unknown) (Tylenol) (units unknown) (unknown) (unknown) (no date) (unknown) (unknown) (past 8 hours): (units unknown) (unknown) (unknown) (no date) (unknown) (unknown) - CIWA protocol and seizure precautions (units unknown) (unknown) (unknown) (no date) (unknown) (unknown) - She has a prescribed bottle of seroquel, which ED stated she was encouraged to (units unknown) (unknown) (unknown) (no date) (unknown) (unknown) - She is ordered for a one time dose of IV phenobarbitol 130 mg X 1 (units unknown) (unknown) (unknown) (no date) (unknown) (unknown) - She received multiple doses of oral ativan, IV was placed in the ED. (units unknown) (unknown) (unknown) (no date) (unknown) (unknown) - She was administered a 1 time dose of cephalexin po in the ED (units unknown) (unknown) (unknown) (no date) (unknown) (unknown) - She will be ordere d for a librium tapor (units unknown) (unknown) (unknown) (no date) (unknown) (unknown) - She will be starte d on IV ceftriaxone 1 gram daily (units unknown) (unknown) (unknown) (no date) (unknown) (unknown) [id number] (units unknown) (unknown) (unknown) (no date) (unknown) (unknown) 01:28 07/13/22 (units unknown) (unknown) (unknown) (no date) (unknown) (unknown) 01:50 (units unknown) (unknown) (unknown) (no date) (unknown) (unknown) 07/03/20 Rx (units unknown) (unknown) (unknown) (no date) (unknown) (unknown) 02:00 07/13/22 (units unknown) (unknown) (unknown) (no date) (unknown) (unknown) 02:14 07/13/22 (units unknown) (unknown) (unknown) (no date) (unknown) (unknown) 02:14 (units unknown) (unknown) (unknown) (no date) (unknown) (unknown) 02:30 07/13/22 (units unknown) (unknown) (unknown) (no date) (unknown) (unknown) 07/12/22 07/12/22 07/12/22 (units unknown) (unknown) (unknown) (no date) (unknown) (unknown) 07/12/22 19:15 (units unknown) (unknown) (unknown) (no date) (unknown) (unknown) 07/12/22 (units unknown) (unknown) (unknown) (no date) (unknown) (unknown) 07/13/22 0726 (units unknown) (unknown) (unknown) (no date) (unknown) (unknown) 07/13/22 (units unknown) (unknown) (unknown) (no date) (unknown) (unknown) 03:00 07/13/22 (units unknown) (unknown) (unknown) (no date) (unknown) (unknown) 03:30 (units unknown) (unknown) (unknown) (no date) (unknown) (unknown) 04:00 07/13/22 (units unknown) (unknown) (unknown) (no date) (unknown) (unknown) 04:30 07/13/22 (units unknown) (unknown) (unknown) (no date) (unknown) (unknown) 05:00 (units unknown) (unknown) (unknown) (no date) (unknown) (unknown) 05:30 07/13/22 (units unknown) (unknown) (unknown) (no date) (unknown) (unknown) 05:54 07/13/22 (units unknown) (unknown) (unknown) (no date) (unknown) (unknown) 05:54 (units unknown) (unknown) (unknown) (no date) (unknown) (unknown) 06:00 07/13/22 (units unknown) (unknown) (unknown) (no date) (unknown) (unknown) 06:00 (units unknown) (unknown) (unknown) (no date) (unknown) (unknown) 16:32 16:32 16:32 (units unknown) (unknown) (unknown) (no date) (unknown) (unknown) 19:15 19:15 19:15 (units unknown) (unknown) (unknown) (no date) (unknown) (unknown) 20 and she was deeme d to medically unstable for transfer to rehab, ED is (units unknown) (unknown) (unknown) (no date) (unknown) (unknown) 23:30 07/13/22 (units unknown) (unknown) (unknown) (no date) (unknown) (unknown) 750 mL of time.? She just she has nothing to do but relapsed.? This 3 weeks ago (units unknown) (unknown) (unknown) (no date) (unknown) (unknown) 8.0 AST 67 urinalysi s indicated many bacteria alcohol level was 338 and COVID-19 (units unknown) (unknown) (unknown) (no date) (unknown) (unknown) ALT 21 (units unknown) (unknown) (unknown) (no date) (unknown) (unknown) ALT (units unknown) (unknown) (unknown) (no date) (unknown) (unknown) AST 67 H (units unknown) (unknown) (unknown) (no date) (unknown) (unknown) AST (units unknown) (unknown) (unknown) (no date) (unknown) (unknown) Abd: soft, non-tender, normoactive BTs (units unknown) (unknown) (unknown) (no date) (unknown) (unknown) Acetaminophen < 10 (units unknown) (unknown) (unknown) (no date) (unknown) (unknown) Acetaminophen (units unknown) (unknown) (unknown) (no date) (unknown) (unknown) Acute alcohol intoxication and withdrawal, present on admission (units unknown) (unknown) (unknown) (no date) (unknown) (unknown) Age/Sex: 31 / F (units unknown) (unknown) (unknown) (no date) (unknown) (unknown) Albumin 4.3 (units unknown) (unknown) (unknown) (no date) (unknown) (unknown) Albumin (units unknown) (unknown) (unknown) (no date) (unknown) (unknown) Albumin/Globulin Ratio 1.4 (units unknown) (unknown) (unknown) (no date) (unknown) (unknown) Albumin/Globulin Ratio (units unknown) (unknown) (unknown) (no date) (unknown) (unknown) Alcoholism (units unknown) (unknown) (unknown) (no date) (unknown) (unknown) Alkaline Phosphatase 98 (units unknown) (unknown) (unknown) (no date) (unknown) (unknown) Alkaline Phosphatase (units unknown) (unknown) (unknown) (no date) (unknown) (unknown) Allergies (units unknown) (unknown) (unknown) (no date) (unknown) (unknown) Allergy/AdvReac Type Severity Reaction Status Date / Time (units unknown) (unknown) (unknown) (no date) (unknown) (unknown) Anemia (-2018) (units unknown) (unknown) (unknown) (no date) (unknown) (unknown) Assessment + Plan narrative: (units unknown) (unknown) (unknown) (no date) (unknown) (unknown) Assessment + Plan (units unknown) (unknown) (unknown) (no date) (unknown) (unknown) BUN 9 (units unknown) (unknown) (unknown) (no date) (unknown) (unknown) BUN (units unknown) (unknown) (unknown) (no date) (unknown) (unknown) BUN/Creatinine Ratio 11.0 (units unknown) (unknown) (unknown) (no date) (unknown) (unknown) BUN/Creatinine Ratio (units unknown) (unknown) (unknown) (no date) (unknown) (unknown) Baso # (Auto) 0 (units unknown) (unknown) (unknown) (no date) (unknown) (unknown) Baso # (Auto) (units unknown) (unknown) (unknown) (no date) (unknown) (unknown) Baso % (Auto) 0.9 (units unknown) (unknown) (unknown) (no date) (unknown) (unknown) Baso % (Auto) (units unknown) (unknown) (unknown) (no date) (unknown) (unknown) Been Physically Hurt or No (units unknown) (unknown) (unknown) (no date) (unknown) (unknown) Blood Pressure 102/5 9 L (units unknown) (unknown) (unknown) (no date) (unknown) (unknown) Blood Pressure 93/54 L (units unknown) (unknown) (unknown) (no date) (unknown) (unknown) Blood Pressure 99/52 L (units unknown) (unknown) (unknown) (no date) (unknown) (unknown) Blood Pressure 99/58 L (units unknown) (unknown) (unknown) (no date) (unknown) (unknown) Blood Pressure [Left Arm] 95/53 L (units unknown) (unknown) (unknown) (no date) (unknown) (unknown) Blood Pressure [Left Arm] (units unknown) (unknown) (unknown) (no date) (unknown) (unknown) Blood Pressure (units unknown) (unknown) (unknown) (no date) (unknown) (unknown) COVID-19 status: Negative (units unknown) (unknown) (unknown) (no date) (unknown) (unknown) COVID-19 (units unknown) (unknown) (unknown) (no date) (unknown) (unknown) CV: tachycardic, no murmur or rubs (units unknown) (unknown) (unknown) (no date) (unknown) (unknown) Calcium 8.0 L (units unknown) (unknown) (unknown) (no date) (unknown) (unknown) Calcium (units unknown) (unknown) (unknown) (no date) (unknown) (unknown) Carbon Dioxide 23 (units unknown) (unknown) (unknown) (no date) (unknown) (unknown) Carbon Dioxide (units unknown) (unknown) (unknown) (no date) (unknown) (unknown) Chief complaint: Acute alcohol withdrawal (units unknown) (unknown) (unknown) (no date) (unknown) (unknown) Chloride 104 (units unknown) (unknown) (unknown) (no date) (unknown) (unknown) Chloride (units unknown) (unknown) (unknown) (no date) (unknown) (unknown) Code status: patient unable to state, presumed to be full code. (units unknown) (unknown) (unknown) (no date) (unknown) (unknown) Consultants None (units unknown) (unknown) (unknown) (no date) (unknown) (unknown) Creatinine 0.82 (units unknown) (unknown) (unknown) (no date) (unknown) (unknown) Creatinine (units unknown) (unknown) (unknown) (no date) (unknown) (unknown) Critical Care time: (units unknown) (unknown) (unknown) (no date) (unknown) (unknown) : 1990 Acct:[id number] (units unknown) (unknown) (unknown) (no date) (unknown) (unknown) Date Patient Seen: 07/13/22 (units unknown) (unknown) (unknown) (no date) (unknown) (unknown) Date of Service: 07/13/22 (units unknown) (unknown) (unknown) (no date) (unknown) (unknown) Deep Vein Thrombosis/Pulmonary Embolism Present on Admission: No (units unknown) (unknown) (unknown) (no date) (unknown) (unknown) Discussion of results, plan of care with independent HCP/other: ED provider (units unknown) (unknown) (unknown) (no date) (unknown) (unknown) Dispo: home vs rehab (units unknown) (unknown) (unknown) (no date) (unknown) (unknown) Environment (units unknown) (unknown) (unknown) (no date) (unknown) (unknown) Eos # (Auto) 0 (units unknown) (unknown) (unknown) (no date) (unknown) (unknown) Eos # (Auto) (units unknown) (unknown) (unknown) (no date) (unknown) (unknown) Eos % (Auto) 0.3 L (units unknown) (unknown) (unknown) (no date) (unknown) (unknown) Eos % (Auto) (units unknown) (unknown) (unknown) (no date) (unknown) (unknown) Estimated GFR > 60 (units unknown) (unknown) (unknown) (no date) (unknown) (unknown) Estimated GFR (units unknown) (unknown) (unknown) (no date) (unknown) (unknown) Ethyl Alcohol 338 H (units unknown) (unknown) (unknown) (no date) (unknown) (unknown) Ethyl Alcohol (units unknown) (unknown) (unknown) (no date) (unknown) (unknown) Exam Narrative: (units unknown) (unknown) (unknown) (no date) (unknown) (unknown) Exam (units unknown) (unknown) (unknown) (no date) (unknown) (unknown) Extremities: moves all 4 extremities, is ambulatory, negative Lenny?s sign (units unknown) (unknown) (unknown) (no date) (unknown) (unknown) FEN: IV fluids: NS a t 100 ml/hour, diet: general, labs: CBC, C/BMP, liver (units unknown) (unknown) (unknown) (no date) (unknown) (unknown) Family + Social History (units unknown) (unknown) (unknown) (no date) (unknown) (unknown) Family History (units unknown) (unknown) (unknown) (no date) (unknown) (unknown) Family/Other Alcoholism (units unknown) (unknown) (unknown) (no date) (unknown) (unknown) Family/Other Diabete s mellitus (units unknown) (unknown) (unknown) (no date) (unknown) (unknown) Father Alcoholism (units unknown) (unknown) (unknown) (no date) (unknown) (unknown) Feels Safe in [place] t Yes (units unknown) (unknown) (unknown) (no date) (unknown) (unknown) Free T4 0.93 (units unknown) (unknown) (unknown) (no date) (unknown) (unknown) Free T4 (units unknown) (unknown) (unknown) (no date) (unknown) (unknown) Gen: Alert, oriented , well-developed 31 y.o. female, NAD (units unknown) (unknown) (unknown) (no date) (unknown) (unknown) Globulin 3.0 (units unknown) (unknown) (unknown) (no date) (unknown) (unknown) Globulin (units unknown) (unknown) (unknown) (no date) (unknown) (unknown) Glucose 111 H (units unknown) (unknown) (unknown) (no date) (unknown) (unknown) Glucose (units unknown) (unknown) (unknown) (no date) (unknown) (unknown) Grandfather Smoker (units unknown) (unknown) (unknown) (no date) (unknown) (unknown) Grandfather Unknown whether patient has any health problems (units unknown) (unknown) (unknown) (no date) (unknown) (unknown) Grandmother Diabetes mellitus (units unknown) (unknown) (unknown) (no date) (unknown) (unknown) Grandmother Hypoglycemia (units unknown) (unknown) (unknown) (no date) (unknown) (unknown) H/O dilation and curettage (-12/14/16) (units unknown) (unknown) (unknown) (no date) (unknown) (unknown) H/O wisdom tooth extraction () (units unknown) (unknown) (unknown) (no date) (unknown) (unknown) HEENT: normocephalic , atraumatic, conjunctiva clear, pinpoint pupils, sclera (units unknown) (unknown) (unknown) (no date) (unknown) (unknown) Hct 35.3 L (units unknown) (unknown) (unknown) (no date) (unknown) (unknown) Hct (units unknown) (unknown) (unknown) (no date) (unknown) (unknown) Hgb 11.5 L (units unknown) (unknown) (unknown) (no date) (unknown) (unknown) Hgb (units unknown) (unknown) (unknown) (no date) (unknown) (unknown) History + Physical Report (units unknown) (unknown) (unknown) (no date) (unknown) (unknown) History of Present Illness (units unknown) (unknown) (unknown) (no date) (unknown) (unknown) Home Medications and Allergies (units unknown) (unknown) (unknown) (no date) (unknown) (unknown) Home Medications (units unknown) (unknown) (unknown) (no date) (unknown) (unknown) I confirm the patient?s Advance Care Plan is present, Code status is documented, (units unknown) (unknown) (unknown) (no date) (unknown) (unknown) I spent a total of 6 5 minutes of critical care time on this patient's care (units unknown) (unknown) (unknown) (no date) (unknown) (unknown) Insomnia (units unknown) (unknown) (unknown) (no date) (unknown) (unknown) [address] [address] (units unknown) (unknown) (unknown) (no date) (unknown) (unknown) Laboratory Results - last 24 hr (units unknown) (unknown) (unknown) (no date) (unknown) (unknown) Labs (units unknown) (unknown) (unknown) (no date) (unknown) (unknown) Labs: (units unknown) (unknown) (unknown) (no date) (unknown) (unknown) Lymph # (Auto) 1700 (units unknown) (unknown) (unknown) (no date) (unknown) (unknown) Lymph # (Auto) (units unknown) (unknown) (unknown) (no date) (unknown) (unknown) Lymph % (Auto) 50.6 H (units unknown) (unknown) (unknown) (no date) (unknown) (unknown) Lymph % (Auto) (units unknown) (unknown) (unknown) (no date) (unknown) (unknown) MCH 26.0 (units unknown) (unknown) (unknown) (no date) (unknown) (unknown) MCH (units unknown) (unknown) (unknown) (no date) (unknown) (unknown) MCHC 32.7 (units unknown) (unknown) (unknown) (no date) (unknown) (unknown) MCHC (units unknown) (unknown) (unknown) (no date) (unknown) (unknown) MCV 79.5 L (units unknown) (unknown) (unknown) (no date) (unknown) (unknown) MCV (units unknown) (unknown) (unknown) (no date) (unknown) (unknown) MIPS - Admit (units unknown) (unknown) (unknown) (no date) (unknown) (unknown) MIPS - DC (units unknown) (unknown) (unknown) (no date) (unknown) (unknown) Medical History (units unknown) (unknown) (unknown) (no date) (unknown) (unknown) Medication Instructions Recorded Confirmed Type (units unknown) (unknown) (unknown) (no date) (unknown) (unknown) Meds (units unknown) (unknown) (unknown) (no date) (unknown) (unknown) Menometrorrhagia (units unknown) (unknown) (unknown) (no date) (unknown) (unknown) [place] # (Auto) 100 (units unknown) (unknown) (unknown) (no date) (unknown) (unknown) [place] # (Auto) (units unknown) (unknown) (unknown) (no date) (unknown) (unknown) [place] % (Auto) 2.7 L (units unknown) (unknown) (unknown) (no date) (unknown) (unknown) [place] % (Auto) (units unknown) (unknown) (unknown) (no date) (unknown) (unknown) Mother Diabetes mellitus (units unknown) (unknown) (unknown) (no date) (unknown) (unknown) Narrative (units unknown) (unknown) (unknown) (no date) (unknown) (unknown) Narrative: (units unknown) (unknown) (unknown) (no date) (unknown) (unknown) Neck: supple, full ROM, no JVD, trachea is midline (units unknown) (unknown) (unknown) (no date) (unknown) (unknown) Neuro: very lethargi c and unable to hold a meaningful conversation, speech is (units unknown) (unknown) (unknown) (no date) (unknown) (unknown) Neut # (Auto) 1500 (units unknown) (unknown) (unknown) (no date) (unknown) (unknown) Neut # (Auto) (units unknown) (unknown) (unknown) (no date) (unknown) (unknown) Neut % (Auto) 45.5 L (units unknown) (unknown) (unknown) (no date) (unknown) (unknown) Neut % (Auto) (units unknown) (unknown) (unknown) (no date) (unknown) (unknown) Obesity (units unknown) (unknown) (unknown) (no date) (unknown) (unknown) Objective (units unknown) (unknown) (unknown) (no date) (unknown) (unknown) Other independent historians: none (units unknown) (unknown) (unknown) (no date) (unknown) (unknown) Overweight (units unknown) (unknown) (unknown) (no date) (unknown) (unknown) Oxygen Delivery Method Room Air Room Air (units unknown) (unknown) (unknown) (no date) (unknown) (unknown) Oxygen Delivery Method Room Air (units unknown) (unknown) (unknown) (no date) (unknown) (unknown) Oxygen Delivery Method (units unknown) (unknown) (unknown) (no date) (unknown) (unknown) PCR done on March 2n d was negative. (units unknown) (unknown) (unknown) (no date) (unknown) (unknown) Patient History (units unknown) (unknown) (unknown) (no date) (unknown) (unknown) Patient is admitted to the inpatient ICU service due to the severity of disease, (units unknown) (unknown) (unknown) (no date) (unknown) (unknown) Patient is heavily sedated, falling asleep during my visit and unable to provide (units unknown) (unknown) (unknown) (no date) (unknown) (unknown) Patient: Sarah Connors MR#: M (units unknown) (unknown) (unknown) (no date) (unknown) (unknown) Plt Count 226 (units unknown) (unknown) (unknown) (no date) (unknown) (unknown) Plt Count (units unknown) (unknown) (unknown) (no date) (unknown) (unknown) Potassium 3.9 (units unknown) (unknown) (unknown) (no date) (unknown) (unknown) Potassium (units unknown) (unknown) (unknown) (no date) (unknown) (unknown) Provider: Aide Haney (units unknown) (unknown) (unknown) (no date) (unknown) (unknown) Psyche: appears to b e hallucinating (units unknown) (unknown) (unknown) (no date) (unknown) (unknown) Pulse Oximetry 97 100 (units unknown) (unknown) (unknown) (no date) (unknown) (unknown) Pulse Oximetry 97 98 98 (units unknown) (unknown) (unknown) (no date) (unknown) (unknown) Pulse Oximetry 97 (units unknown) (unknown) (unknown) (no date) (unknown) (unknown) Pulse Oximetry 98 97 96 (units unknown) (unknown) (unknown) (no date) (unknown) (unknown) Pulse Oximetry 98 98 (units unknown) (unknown) (unknown) (no date) (unknown) (unknown) Pulse Oximetry 99 97 97 (units unknown) (unknown) (unknown) (no date) (unknown) (unknown) Pulse Rate 119 H (units unknown) (unknown) (unknown) (no date) (unknown) (unknown) Pulse Rate 120 H 122 H (units unknown) (unknown) (unknown) (no date) (unknown) (unknown) Pulse Rate 90 99 H 109 H (units unknown) (unknown) (unknown) (no date) (unknown) (unknown) Pulse Rate 94 H 92 H 88 (units unknown) (unknown) (unknown) (no date) (unknown) (unknown) Pulse Rate 97 H 87 (units unknown) (unknown) (unknown) (no date) (unknown) (unknown) Pulse Rate 98 H 101 H 109 H (units unknown) (unknown) (unknown) (no date) (unknown) (unknown) RBC 4.44 (units unknown) (unknown) (unknown) (no date) (unknown) (unknown) RBC (units unknown) (unknown) (unknown) (no date) (unknown) (unknown) RDW 17.3 H (units unknown) (unknown) (unknown) (no date) (unknown) (unknown) RDW (units unknown) (unknown) (unknown) (no date) (unknown) (unknown) ROS: Yes unobtainabl e due to mental status (units unknown) (unknown) (unknown) (no date) (unknown) (unknown) Resp: Lungs CTA, non-labored breathing (units unknown) (unknown) (unknown) (no date) (unknown) (unknown) Respiratory Rate 16 18 (units unknown) (unknown) (unknown) (no date) (unknown) (unknown) Respiratory Rate (units unknown) (unknown) (unknown) (no date) (unknown) (unknown) Result date/Date tested (Pos, Neg/Pending): 07/12/22 (units unknown) (unknown) (unknown) (no date) (unknown) (unknown) Review of Systems (units unknown) (unknown) (unknown) (no date) (unknown) (unknown) Reviewed outside records: prior ED records (units unknown) (unknown) (unknown) (no date) (unknown) (unknown) S/P myringotomy with insertion of tube (units unknown) (unknown) (unknown) (no date) (unknown) (unknown) SARS-CoV-2 (PCR) Negative (units unknown) (unknown) (unknown) (no date) (unknown) (unknown) SARS-CoV-2 (PCR) (units unknown) (unknown) (unknown) (no date) (unknown) (unknown) SCDs (units unknown) (unknown) (unknown) (no date) (unknown) (unknown) (spontaneous vaginal delivery) (-09/05/18) (units unknown) (unknown) (unknown) (no date) (unknown) (unknown) Safety + Behavioral: (units unknown) (unknown) (unknown) (no date) (unknown) (unknown) Salicylates < 1.0 (units unknown) (unknown) (unknown) (no date) (unknown) (unknown) Salicylates (units unknown) (unknown) (unknown) (no date) (unknown) (unknown) She remained in the ED awaiting a bed and was receiving oral Ativan, but (units unknown) (unknown) (unknown) (no date) (unknown) (unknown) Signed By:<Electronically signed by Aide Haney> (units unknown) (unknown) (unknown) (no date) (unknown) (unknown) Skin: no lesions or rashes, dry and intact (units unknown) (unknown) (unknown) (no date) (unknown) (unknown) Smoker (units unknown) (unknown) (unknown) (no date) (unknown) (unknown) [place] in the past.? She has been sober for a total of 18 (units unknown) (unknown) (unknown) (no date) (unknown) (unknown) Smoking Status Forme r smoker (units unknown) (unknown) (unknown) (no date) (unknown) (unknown) Social History: (units unknown) (unknown) (unknown) (no date) (unknown) (unknown) Social determinants of health: history of alcohol abuse, has pre-school children (units unknown) (unknown) (unknown) (no date) (unknown) (unknown) Sodium 140 (units unknown) (unknown) (unknown) (no date) (unknown) (unknown) Sodium (units unknown) (unknown) (unknown) (no date) (unknown) (unknown) Sarah Freemanis a 31-year-old female with history of alcohol abuse and appears to (units unknown) (unknown) (unknown) (no date) (unknown) (unknown) Sarah Connors is admitted to the inpatient ICU for further management of (units unknown) (unknown) (unknown) (no date) (unknown) (unknown) Substance Use Type does not use (units unknown) (unknown) (unknown) (no date) (unknown) (unknown) Suicidal Ideation Description None (units unknown) (unknown) (unknown) (no date) (unknown) (unknown) Surgical History (units unknown) (unknown) (unknown) (no date) (unknown) (unknown) Surrogate decision maker is in patient?s record: No, patient unable to (units unknown) (unknown) (unknown) (no date) (unknown) (unknown) TSH 1.24 (units unknown) (unknown) (unknown) (no date) (unknown) (unknown) TSH (units unknown) (unknown) (unknown) (no date) (unknown) (unknown) The patient has current or prior documentation of left ventricular ejection (units unknown) (unknown) (unknown) (no date) (unknown) (unknown) Threatened By a Person (units unknown) (unknown) (unknown) (no date) (unknown) (unknown) Time Patient Seen: 06:48 (units unknown) (unknown) (unknown) (no date) (unknown) (unknown) Time Spent With Patient (units unknown) (unknown) (unknown) (no date) (unknown) (unknown) Tobacco + Substance use: (units unknown) (unknown) (unknown) (no date) (unknown) (unknown) Tobacco type cigarettes (units unknown) (unknown) (unknown) (no date) (unknown) (unknown) Total Bilirubin 0.4 (units unknown) (unknown) (unknown) (no date) (unknown) (unknown) Total Bilirubin (units unknown) (unknown) (unknown) (no date) (unknown) (unknown) Total Protein 7.3 (units unknown) (unknown) (unknown) (no date) (unknown) (unknown) Total Protein (units unknown) (unknown) (unknown) (no date) (unknown) (unknown) U Benzodiazepines Scrn Negative (units unknown) (unknown) (unknown) (no date) (unknown) (unknown) U Benzodiazepines Scrn (units unknown) (unknown) (unknown) (no date) (unknown) (unknown) U Marijuana (THC) Screen Negative (units unknown) (unknown) (unknown) (no date) (unknown) (unknown) U Marijuana (THC) Screen (units unknown) (unknown) (unknown) (no date) (unknown) (unknown) U Methamphetamines Scrn Negative (units unknown) (unknown) (unknown) (no date) (unknown) (unknown) U Methamphetamines Scrn (units unknown) (unknown) (unknown) (no date) (unknown) (unknown) U Opiates 300ng/mL cut Negative (units unknown) (unknown) (unknown) (no date) (unknown) (unknown) U Opiates 300ng/mL cut (units unknown) (unknown) (unknown) (no date) (unknown) (unknown) U Tricyclic Antidepress Negative (units unknown) (unknown) (unknown) (no date) (unknown) (unknown) U Tricyclic Antidepress (units unknown) (unknown) (unknown) (no date) (unknown) (unknown) UTI, acute but asymptomatic (units unknown) (unknown) (unknown) (no date) (unknown) (unknown) Ur Amphetamines Screen Negative (units unknown) (unknown) (unknown) (no date) (unknown) (unknown) Ur Amphetamines Screen (units unknown) (unknown) (unknown) (no date) (unknown) (unknown) Ur Barbiturates Screen Negative (units unknown) (unknown) (unknown) (no date) (unknown) (unknown) Ur Barbiturates Screen (units unknown) (unknown) (unknown) (no date) (unknown) (unknown) Ur Culture Indicated ? Specimen cultured (units unknown) (unknown) (unknown) (no date) (unknown) (unknown) Ur Culture Indicated? (units unknown) (unknown) (unknown) (no date) (unknown) (unknown) Ur MDMA Scrn (Ecstasy) Negative (units unknown) (unknown) (unknown) (no date) (unknown) (unknown) Ur MDMA Scrn (Ecstasy) (units unknown) (unknown) (unknown) (no date) (unknown) (unknown) Ur Oxycodone Screen Negative (units unknown) (unknown) (unknown) (no date) (unknown) (unknown) Ur Oxycodone Screen (units unknown) (unknown) (unknown) (no date) (unknown) (unknown) Ur Phencyclidine Scr n Negative (units unknown) (unknown) (unknown) (no date) (unknown) (unknown) Ur Phencyclidine Scrn (units unknown) (unknown) (unknown) (no date) (unknown) (unknown) Ur Squamous Epith Cells 1-5 /hpf (units unknown) (unknown) (unknown) (no date) (unknown) (unknown) Ur Squamous Epith Cells (units unknown) (unknown) (unknown) (no date) (unknown) (unknown) Urine Bacteria Many (>30) H (units unknown) (unknown) (unknown) (no date) (unknown) (unknown) Urine Bacteria (units unknown) (unknown) (unknown) (no date) (unknown) (unknown) Urine Cocaine Screen Negative (units unknown) (unknown) (unknown) (no date) (unknown) (unknown) Urine Cocaine Screen (units unknown) (unknown) (unknown) (no date) (unknown) (unknown) Urine Methadone Screen Negative (units unknown) (unknown) (unknown) (no date) (unknown) (unknown) Urine Methadone Screen (units unknown) (unknown) (unknown) (no date) (unknown) (unknown) Urine RBC 1-5/hpf (units unknown) (unknown) (unknown) (no date) (unknown) (unknown) Urine RBC (units unknown) (unknown) (unknown) (no date) (unknown) (unknown) Urine WBC 1-5/hpf (units unknown) (unknown) (unknown) (no date) (unknown) (unknown) Urine WBC (units unknown) (unknown) (unknown) (no date) (unknown) (unknown) VTE Prophylaxis: Wells risk score X Enoxaparin 40 mg subQ once daily Bilateral (units unknown) (unknown) (unknown) (no date) (unknown) (unknown) VTE (units unknown) (unknown) (unknown) (no date) (unknown) (unknown) Vital Signs (units unknown) (unknown) (unknown) (no date) (unknown) (unknown) WBC 3.3 L (units unknown) (unknown) (unknown) (no date) (unknown) (unknown) WBC (units unknown) (unknown) (unknown) (no date) (unknown) (unknown) [facility] emergency department on 06/18/2022 and a few days prior to that with a (units unknown) (unknown) (unknown) (no date) (unknown) (unknown) [Embedded Image Not Available] (units unknown) (unknown) (unknown) (no date) (unknown) (unknown) [METOCLOPRAMIDE] (units unknown) (unknown) (unknown) (no date) (unknown) (unknown) [X] I have utilized all available immediate resources to obtain, update, or (units unknown) (unknown) (unknown) (no date) (unknown) (unknown) a history, except fo r 'I went on a castañeda' for 12 days. Per the ED notes, (units unknown) (unknown) (unknown) (no date) (unknown) (unknown) acetaminophen 325 mg tablet 325 mg PO Q6H PRN pain #20 tabs 02/05/20 07/03/20 Rx (units unknown) (unknown) (unknown) (no date) (unknown) (unknown) afebrile, blood pressure 93/54 heart rate 119 respiratory rate 18 oxygen (units unknown) (unknown) (unknown) (no date) (unknown) (unknown) alcohol intake former (units unknown) (unknown) (unknown) (no date) (unknown) (unknown) alcohol intake frequency 3 or more drinks per day (units unknown) (unknown) (unknown) (no date) (unknown) (unknown) alcohol withdrawal. (units unknown) (unknown) (unknown) (no date) (unknown) (unknown) and she drinking daily since this happened.? She wants rehab.? She has been (units unknown) (unknown) (unknown) (no date) (unknown) (unknown) articulate preference. (units unknown) (unknown) (unknown) (no date) (unknown) (unknown) at home. (units unknown) (unknown) (unknown) (no date) (unknown) (unknown) blood alcohol in 300s, she was last here in the emergency department in May (units unknown) (unknown) (unknown) (no date) (unknown) (unknown) developed increasing agitation and now DTs. Her CIWA score went from 12 to over (units unknown) (unknown) (unknown) (no date) (unknown) (unknown) diphenhydramine HCl 25 mg capsule 25 mg PO BEDTIME PRN insomnia #20 02/05/20 (units unknown) (unknown) (unknown) (no date) (unknown) (unknown) docusate sodium 100 mg capsule 100 mg PO BID #30 caps 02/05/20 (units unknown) (unknown) (unknown) (no date) (unknown) (unknown) enzymes, Mag, PT/INR (units unknown) (unknown) (unknown) (no date) (unknown) (unknown) fraction (LVEF) less than 40%, or moderate or severely depressed left (units unknown) (unknown) (unknown) (no date) (unknown) (unknown) have limited history currently due to intoxication.? She states that she is (units unknown) (unknown) (unknown) (no date) (unknown) (unknown) hemoglobin and hematocrit are 11.5 and 35.3 respectively glucose is 111 calcium (units unknown) (unknown) (unknown) (no date) (unknown) (unknown) household members spouse,children (units unknown) (unknown) (unknown) (no date) (unknown) (unknown) hydrocodone [HYDROCODONE] AdvReac Unknown VOMITING Verified 07/12/22 16:18 (units unknown) (unknown) (unknown) (no date) (unknown) (unknown) ibuprofen 600 mg tablet 600 mg PO Q6HR PRN Pain, Mild 07/04/20 Rx (units unknown) (unknown) (unknown) (no date) (unknown) (unknown) infection and had been given one dose of oral cephalexin for this. She is (units unknown) (unknown) (unknown) (no date) (unknown) (unknown) metoclopramide Allergy Mild RASH/HIVES Verified 07/12/22 16:18 (units unknown) (unknown) (unknown) (no date) (unknown) (unknown) months.' (units unknown) (unknown) (unknown) (no date) (unknown) (unknown) nights. (units unknown) (unknown) (unknown) (no date) (unknown) (unknown) non-icteric, oral mucosa pink and moist (units unknown) (unknown) (unknown) (no date) (unknown) (unknown) of 2022 with similar symptoms.? She comes in complaining of needing help, states (units unknown) (unknown) (unknown) (no date) (unknown) (unknown) ondansetron 4 mg disintegrating 4 mg PO Q6H PRN nausea and 06/12/22 Rx (units unknown) (unknown) (unknown) (no date) (unknown) (unknown) ondansetron 4 mg disintegrating 4 mg PO Q8H PRN nausea and 01/01/20 07/03/20 Rx (units unknown) (unknown) (unknown) (no date) (unknown) (unknown) ondansetron 4 mg disintegrating 4 mg PO Q8H PRN nausea and 02/05/20 07/03/20 Rx (units unknown) (unknown) (unknown) (no date) (unknown) (unknown) prenat.vits,otis,min- i thang-folic 1 tab PO DAILY 12/30/19 07/03/20 History (units unknown) (unknown) (unknown) (no date) (unknown) (unknown) recently relapsed du e to a divorce with her .? She used to be a frequent (units unknown) (unknown) (unknown) (no date) (unknown) (unknown) requesting an ICU be d currently. She was also found to have a urinary tract (units unknown) (unknown) (unknown) (no date) (unknown) (unknown) review of the patient's current medications (units unknown) (unknown) (unknown) (no date) (unknown) (unknown) risks of further disease progression and this stay is expected to exceed 2 mid (units unknown) (unknown) (unknown) (no date) (unknown) (unknown) saturation of 97% on room air she weighs 49.8 kg with a BMI of 20.1. WBC is 3.3 (units unknown) (unknown) (unknown) (no date) (unknown) (unknown) slurred (units unknown) (unknown) (unknown) (no date) (unknown) (unknown) tablet vomiting #14 tabs (units unknown) (unknown) (unknown) (no date) (unknown) (unknown) tablet vomiting #20 tabs (units unknown) (unknown) (unknown) (no date) (unknown) (unknown) tablet vomiting #30 tabs (units unknown) (unknown) (unknown) (no date) (unknown) (unknown) take, unknown if she took. Dose is 300 mg to be taken at bedtime. (units unknown) (unknown) (unknown) (no date) (unknown) (unknown) that she drinks vodk a and admits to drinking heavily today, states that she took (units unknown) (unknown) (unknown) (no date) (unknown) (unknown) the bottle upside down and started chucking from it.? She states that she drank (units unknown) (unknown) (unknown) (no date) (unknown) (unknown) today; this time is exclusive of procedural time. (units unknown) (unknown) (unknown) (no date) (unknown) (unknown) tramadol 50 mg table t 50 mg PO Q6H PRN pain #10 tabs 06/12/22 Rx (units unknown) (unknown) (unknown) (no date) (unknown) (unknown) ventricular systolic function.: No (units unknown) (unknown) (unknown) (no date) (unknown) (unknown) visitor for alcohol related complaints through 2019, and she presented to the (units unknown) (unknown) Result panel 2194 (unknown) (no date) (unknown) (unknown) No growth. (units unknown) (unknown) Result panel 2195 (unknown) (no date) (unknown) (unknown) 0 /ul (unknown) (unknown) (no date) (unknown) (unknown) 0 /ul (unknown) (unknown) (no date) (unknown) (unknown) 0.3 % (unknown) (unknown) (no date) (unknown) (unknown) 0.7 % (unknown) (unknown) (no date) (unknown) (unknown) 1200 /ul (unknown) (unknown) (no date) (unknown) (unknown) 129 x10 3/ul (unknown) (unknown) (no date) (unknown) (unknown) 17.3 % (unknown) (unknown) (no date) (unknown) (unknown) 1800 /ul (unknown) (unknown) (no date) (unknown) (unknown) 200 /ul (unknown) (unknown) (no date) (unknown) (unknown) 26.3 pg (unknown) (unknown) (no date) (unknown) (unknown) 26.8 % (unknown) (unknown) (no date) (unknown) (unknown) 3.3 x10 3/ul (unknown) (unknown) (no date) (unknown) (unknown) 3.45 x10 6/ul (unknown) (unknown) (no date) (unknown) (unknown) 34.0 % (unknown) (unknown) (no date) (unknown) (unknown) 36.8 % (unknown) (unknown) (no date) (unknown) (unknown) 55.8 % (unknown) (unknown) (no date) (unknown) (unknown) 6.4 % (unknown) (unknown) (no date) (unknown) (unknown) 77.5 fl (unknown) (unknown) (no date) (unknown) (unknown) 9.1 g/dl (unknown) Result panel 2196 (unknown) (no date) (unknown) (unknown) > 60 ml/min (unknown) (unknown) (no date) (unknown) (unknown) > 60 ml/min (unknown) (unknown) (no date) (unknown) (unknown) 0.67 mg/dl (unknown) (unknown) (no date) (unknown) (unknown) 0.8 mg/dl (unknown) (unknown) (no date) (unknown) (unknown) 1.3 (units unknown) (unknown) (unknown) (no date) (unknown) (unknown) 1.4 mg/dl (unknown) (unknown) (no date) (unknown) (unknown) 100 mmol/l (unknown) (unknown) (no date) (unknown) (unknown) 11 mg/dl (unknown) (unknown) (no date) (unknown) (unknown) 135 mmol/l (unknown) (unknown) (no date) (unknown) (unknown) 138 mg/dl (unknown) (unknown) (no date) (unknown) (unknown) 138 mg/dl (unknown) (unknown) (no date) (unknown) (unknown) 16.4 (units unknown) (unknown) (unknown) (no date) (unknown) (unknown) 19 iu/l (unknown) (unknown) (no date) (unknown) (unknown) 2.7 g/dl (unknown) (unknown) (no date) (unknown) (unknown) 28 mmol/l (unknown) (unknown) (no date) (unknown) (unknown) 3.5 g/dl (unknown) (unknown) (no date) (unknown) (unknown) 3.7 mmol/l (unknown) (unknown) (no date) (unknown) (unknown) 52 iu/l (unknown) (unknown) (no date) (unknown) (unknown) 6.2 g/dl (unknown) (unknown) (no date) (unknown) (unknown) 75 u/l (unknown) (unknown) (no date) (unknown) (unknown) 8.1 mg/dl (unknown) Result panel 2197 (unknown) (no date) (unknown) (unknown) (no value) (units unknown) (unknown) (unknown) (no date) (unknown) (unknown) (1) Alcohol withdrawal delirium, acute, hyperactive: (units unknown) (unknown) (unknown) (no date) (unknown) (unknown) (2) Alcohol use disorder: (units unknown) (unknown) (unknown) (no date) (unknown) (unknown) (3) Acute cystitis: (units unknown) (unknown) (unknown) (no date) (unknown) (unknown) (past 8 hours): (units unknown) (unknown) (unknown) (no date) (unknown) (unknown) 0.2 MCG/KG/HR (units unknown) (unknown) (unknown) (no date) (unknown) (unknown) [id number] (units unknown) (unknown) (unknown) (no date) (unknown) (unknown) 07/03/20] (units unknown) (unknown) (unknown) (no date) (unknown) (unknown) 07/12/22 07/12/22 07/12/22 (units unknown) (unknown) (unknown) (no date) (unknown) (unknown) 07/13/22 07/13/22 (units unknown) (unknown) (unknown) (no date) (unknown) (unknown) 07/13/22 08:50 (units unknown) (unknown) (unknown) (no date) (unknown) (unknown) 07/13/22 11:13 (units unknown) (unknown) (unknown) (no date) (unknown) (unknown) 07/13/22 (units unknown) (unknown) (unknown) (no date) (unknown) (unknown) 04:00 07/13/22 (units unknown) (unknown) (unknown) (no date) (unknown) (unknown) 04:30 07/13/22 (units unknown) (unknown) (unknown) (no date) (unknown) (unknown) 05:00 (units unknown) (unknown) (unknown) (no date) (unknown) (unknown) 05:30 07/13/22 (units unknown) (unknown) (unknown) (no date) (unknown) (unknown) 05:54 07/13/22 (units unknown) (unknown) (unknown) (no date) (unknown) (unknown) 05:54 (units unknown) (unknown) (unknown) (no date) (unknown) (unknown) 06:00 07/13/22 (units unknown) (unknown) (unknown) (no date) (unknown) (unknown) 06:39 (units unknown) (unknown) (unknown) (no date) (unknown) (unknown) 06:55 07/13/22 (units unknown) (unknown) (unknown) (no date) (unknown) (unknown) 07:04 07/13/22 (units unknown) (unknown) (unknown) (no date) (unknown) (unknown) 07:04 (units unknown) (unknown) (unknown) (no date) (unknown) (unknown) 07:33 07/13/22 (units unknown) (unknown) (unknown) (no date) (unknown) (unknown) 07:34 07/13/22 (units unknown) (unknown) (unknown) (no date) (unknown) (unknown) 07:34 (units unknown) (unknown) (unknown) (no date) (unknown) (unknown) 08:00 07/13/22 (units unknown) (unknown) (unknown) (no date) (unknown) (unknown) 08:33 (units unknown) (unknown) (unknown) (no date) (unknown) (unknown) 08:50 08:50 (units unknown) (unknown) (unknown) (no date) (unknown) (unknown) 02/05/20 [Rx Confirmed 07/03/20] (units unknown) (unknown) (unknown) (no date) (unknown) (unknown) 09:00 07/13/22 (units unknown) (unknown) (unknown) (no date) (unknown) (unknown) 09:46 (units unknown) (unknown) (unknown) (no date) (unknown) (unknown) 09:47 07/13/22 (units unknown) (unknown) (unknown) (no date) (unknown) (unknown) 16:32 16:32 16:32 (units unknown) (unknown) (unknown) (no date) (unknown) (unknown) 19:15 19:15 19:15 (units unknown) (unknown) (unknown) (no date) (unknown) (unknown) ALT 19 (units unknown) (unknown) (unknown) (no date) (unknown) (unknown) ALT 21 (units unknown) (unknown) (unknown) (no date) (unknown) (unknown) ALT (units unknown) (unknown) (unknown) (no date) (unknown) (unknown) AST 52 H (units unknown) (unknown) (unknown) (no date) (unknown) (unknown) AST 67 H (units unknown) (unknown) (unknown) (no date) (unknown) (unknown) AST (units unknown) (unknown) (unknown) (no date) (unknown) (unknown) Acetaminophen < 10 (units unknown) (unknown) (unknown) (no date) (unknown) (unknown) Acetaminophen (units unknown) (unknown) (unknown) (no date) (unknown) (unknown) Administration (units unknown) (unknown) (unknown) (no date) (unknown) (unknown) Age/Sex: 31 / F (units unknown) (unknown) (unknown) (no date) (unknown) (unknown) Albumin 3.5 (units unknown) (unknown) (unknown) (no date) (unknown) (unknown) Albumin 4.3 (units unknown) (unknown) (unknown) (no date) (unknown) (unknown) Albumin (units unknown) (unknown) (unknown) (no date) (unknown) (unknown) Albumin/Globulin Ratio 1.3 (units unknown) (unknown) (unknown) (no date) (unknown) (unknown) Albumin/Globulin Ratio 1.4 (units unknown) (unknown) (unknown) (no date) (unknown) (unknown) Albumin/Globulin Ratio (units unknown) (unknown) (unknown) (no date) (unknown) (unknown) Alcohol Withdrawal (units unknown) (unknown) (unknown) (no date) (unknown) (unknown) Alcohol withdrawal delirium, acute, hyperactive (units unknown) (unknown) (unknown) (no date) (unknown) (unknown) Alcoholism (units unknown) (unknown) (unknown) (no date) (unknown) (unknown) Alkaline Phosphatase 75 (units unknown) (unknown) (unknown) (no date) (unknown) (unknown) Alkaline Phosphatase 98 (units unknown) (unknown) (unknown) (no date) (unknown) (unknown) Alkaline Phosphatase (units unknown) (unknown) (unknown) (no date) (unknown) (unknown) Anemia (-2018) (units unknown) (unknown) (unknown) (no date) (unknown) (unknown) Assessment + Plan (units unknown) (unknown) (unknown) (no date) (unknown) (unknown) Assessment and plan (units unknown) (unknown) (unknown) (no date) (unknown) (unknown) Awake, oriented x 3, severely confused, intermittently agitated/restless but (units unknown) (unknown) (unknown) (no date) (unknown) (unknown) BUN 11 (units unknown) (unknown) (unknown) (no date) (unknown) (unknown) BUN 9 (units unknown) (unknown) (unknown) (no date) (unknown) (unknown) BUN (units unknown) (unknown) (unknown) (no date) (unknown) (unknown) BUN/Creatinine Ratio 11.0 (units unknown) (unknown) (unknown) (no date) (unknown) (unknown) BUN/Creatinine Ratio 16.4 (units unknown) (unknown) (unknown) (no date) (unknown) (unknown) BUN/Creatinine Ratio (units unknown) (unknown) (unknown) (no date) (unknown) (unknown) Baso # (Auto) 0 (units unknown) (unknown) (unknown) (no date) (unknown) (unknown) Baso # (Auto) (units unknown) (unknown) (unknown) (no date) (unknown) (unknown) Baso % (Auto) 0.7 (units unknown) (unknown) (unknown) (no date) (unknown) (unknown) Baso % (Auto) 0.9 (units unknown) (unknown) (unknown) (no date) (unknown) (unknown) Baso % (Auto) (units unknown) (unknown) (unknown) (no date) (unknown) (unknown) Blood Pressure 104/5 9 L 123/58 L (units unknown) (unknown) (unknown) (no date) (unknown) (unknown) Blood Pressure 111/5 9 L (units unknown) (unknown) (unknown) (no date) (unknown) (unknown) Blood Pressure 116/7 5 116/65 (units unknown) (unknown) (unknown) (no date) (unknown) (unknown) Blood Pressure 93/54 L (units unknown) (unknown) (unknown) (no date) (unknown) (unknown) Blood Pressure 99/52 L (units unknown) (unknown) (unknown) (no date) (unknown) (unknown) Blood Pressure (units unknown) (unknown) (unknown) (no date) (unknown) (unknown) CIWAPRN PRN Administration (units unknown) (unknown) (unknown) (no date) (unknown) (unknown) CONT SANDY Infusion (units unknown) (unknown) (unknown) (no date) (unknown) (unknown) Calcium 8.0 L (units unknown) (unknown) (unknown) (no date) (unknown) (unknown) Calcium 8.1 L (units unknown) (unknown) (unknown) (no date) (unknown) (unknown) Calcium (units unknown) (unknown) (unknown) (no date) (unknown) (unknown) Carbon Dioxide 23 (units unknown) (unknown) (unknown) (no date) (unknown) (unknown) Carbon Dioxide 28 (units unknown) (unknown) (unknown) (no date) (unknown) (unknown) Carbon Dioxide (units unknown) (unknown) (unknown) (no date) (unknown) (unknown) Cardio (units unknown) (unknown) (unknown) (no date) (unknown) (unknown) Chest (units unknown) (unknown) (unknown) (no date) (unknown) (unknown) Chief complaint: Acute alcohol withdrawal (units unknown) (unknown) (unknown) (no date) (unknown) (unknown) Chlordiazepoxide 25 Mg Capsule PO 50 mg (units unknown) (unknown) (unknown) (no date) (unknown) (unknown) Chlordiazepoxide HCl 50 mg 07/13/22 09:10 07/13/22 09:45 (units unknown) (unknown) (unknown) (no date) (unknown) (unknown) Chloride 100 (units unknown) (unknown) (unknown) (no date) (unknown) (unknown) Chloride 104 (units unknown) (unknown) (unknown) (no date) (unknown) (unknown) Chloride (units unknown) (unknown) (unknown) (no date) (unknown) (unknown) Cipro IV Infused (units unknown) (unknown) (unknown) (no date) (unknown) (unknown) Ciprofloxacin 400 mg in 200 mls @ 200 mls/hr 07/13/22 08:00 07/13/22 09:21 (units unknown) (unknown) (unknown) (no date) (unknown) (unknown) Consent obtained for tele-bioinformatics technician care: Yes (units unknown) (unknown) (unknown) (no date) (unknown) (unknown) Const (units unknown) (unknown) (unknown) (no date) (unknown) (unknown) Consult details (units unknown) (unknown) (unknown) (no date) (unknown) (unknown) Creatinine 0.67 (units unknown) (unknown) (unknown) (no date) (unknown) (unknown) Creatinine 0.82 (units unknown) (unknown) (unknown) (no date) (unknown) (unknown) Creatinine (units unknown) (unknown) (unknown) (no date) (unknown) (unknown) Critical Care time: (units unknown) (unknown) (unknown) (no date) (unknown) (unknown) Current Medications (units unknown) (unknown) (unknown) (no date) (unknown) (unknown) DAILY SANDY Administration (units unknown) (unknown) (unknown) (no date) (unknown) (unknown) : 1990 Acct:[id number] (units unknown) (unknown) (unknown) (no date) (unknown) (unknown) Date of Service: 07/13/22 (units unknown) (unknown) (unknown) (no date) (unknown) (unknown) Enoxaparin 40 Mg/0.4 Ml Syringe SUBCUT 40 mg (units unknown) (unknown) (unknown) (no date) (unknown) (unknown) Enoxaparin Sodium 40 mg 07/13/22 09:00 07/13/22 09:28 (units unknown) (unknown) (unknown) (no date) (unknown) (unknown) Eos # (Auto) 0 (units unknown) (unknown) (unknown) (no date) (unknown) (unknown) Eos # (Auto) (units unknown) (unknown) (unknown) (no date) (unknown) (unknown) Eos % (Auto) 0.3 L (units unknown) (unknown) (unknown) (no date) (unknown) (unknown) Eos % (Auto) (units unknown) (unknown) (unknown) (no date) (unknown) (unknown) Estimated GFR > 60 (units unknown) (unknown) (unknown) (no date) (unknown) (unknown) Estimated GFR (units unknown) (unknown) (unknown) (no date) (unknown) (unknown) Ethyl Alcohol 338 H (units unknown) (unknown) (unknown) (no date) (unknown) (unknown) Ethyl Alcohol (units unknown) (unknown) (unknown) (no date) (unknown) (unknown) Exam (units unknown) (unknown) (unknown) (no date) (unknown) (unknown) Family History (units unknown) (unknown) (unknown) (no date) (unknown) (unknown) Family/Other Alcoholism (units unknown) (unknown) (unknown) (no date) (unknown) (unknown) Family/Other Diabete s mellitus (units unknown) (unknown) (unknown) (no date) (unknown) (unknown) Father Alcoholism (units unknown) (unknown) (unknown) (no date) (unknown) (unknown) Folic Acid 1 Mg Tablet PO 1 mg (units unknown) (unknown) (unknown) (no date) (unknown) (unknown) Folic Acid 1 mg 07/13/22 09:00 07/13/22 09:27 (units unknown) (unknown) (unknown) (no date) (unknown) (unknown) Free T4 0.93 (units unknown) (unknown) (unknown) (no date) (unknown) (unknown) Free T4 (units unknown) (unknown) (unknown) (no date) (unknown) (unknown) Generic Name Dose Route Start Last Admin (units unknown) (unknown) (unknown) (no date) (unknown) (unknown) Globulin 2.7 (units unknown) (unknown) (unknown) (no date) (unknown) (unknown) Globulin 3.0 (units unknown) (unknown) (unknown) (no date) (unknown) (unknown) Globulin (units unknown) (unknown) (unknown) (no date) (unknown) (unknown) Glucose 111 H (units unknown) (unknown) (unknown) (no date) (unknown) (unknown) Glucose 138 H (units unknown) (unknown) (unknown) (no date) (unknown) (unknown) Glucose (units unknown) (unknown) (unknown) (no date) (unknown) (unknown) Grandfather Smoker (units unknown) (unknown) (unknown) (no date) (unknown) (unknown) Grandfather Unknown whether patient has any health problems (units unknown) (unknown) (unknown) (no date) (unknown) (unknown) Grandmother Diabetes mellitus (units unknown) (unknown) (unknown) (no date) (unknown) (unknown) Grandmother Hypoglycemia (units unknown) (unknown) (unknown) (no date) (unknown) (unknown) H/O dilation and curettage (-12/14/16) (units unknown) (unknown) (unknown) (no date) (unknown) (unknown) H/O wisdom tooth extraction () (units unknown) (unknown) (unknown) (no date) (unknown) (unknown) Hct 26.8 L (units unknown) (unknown) (unknown) (no date) (unknown) (unknown) Hct 35.3 L (units unknown) (unknown) (unknown) (no date) (unknown) (unknown) Hct (units unknown) (unknown) (unknown) (no date) (unknown) (unknown) Hematuria presence: without hematuria Qualified Code(s): N30.00 - Acute (units unknown) (unknown) (unknown) (no date) (unknown) (unknown) Hgb 11.5 L (units unknown) (unknown) (unknown) (no date) (unknown) (unknown) Hgb 9.1 L (units unknown) (unknown) (unknown) (no date) (unknown) (unknown) Hgb (units unknown) (unknown) (unknown) (no date) (unknown) (unknown) History of Present Illness (units unknown) (unknown) (unknown) (no date) (unknown) (unknown) Home Medications (units unknown) (unknown) (unknown) (no date) (unknown) (unknown) I spent a total of [ ] minutes of critical care time on this patient's care (units unknown) (unknown) (unknown) (no date) (unknown) (unknown) In Sinus Tachycardia (units unknown) (unknown) (unknown) (no date) (unknown) (unknown) 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 (units unknown) (unknown) (unknown) (no date) (unknown) (unknown) Insomnia (units unknown) (unknown) (unknown) (no date) (unknown) (unknown) [address] [address] (units unknown) (unknown) (unknown) (no date) (unknown) (unknown) Laboratory Results - last 24 hr (units unknown) (unknown) (unknown) (no date) (unknown) (unknown) Labs (units unknown) (unknown) (unknown) (no date) (unknown) (unknown) Labs: (units unknown) (unknown) (unknown) (no date) (unknown) (unknown) Lorazepam 0 mg 07/13/22 06:40 07/13/22 10:15 (units unknown) (unknown) (unknown) (no date) (unknown) (unknown) Lorazepam 2 Mg/Ml In j IV 2 mg (units unknown) (unknown) (unknown) (no date) (unknown) (unknown) Lymph # (Auto) 1200 (units unknown) (unknown) (unknown) (no date) (unknown) (unknown) Lymph # (Auto) 1700 (units unknown) (unknown) (unknown) (no date) (unknown) (unknown) Lymph # (Auto) (units unknown) (unknown) (unknown) (no date) (unknown) (unknown) Lymph % (Auto) 36.8 (units unknown) (unknown) (unknown) (no date) (unknown) (unknown) Lymph % (Auto) 50.6 H (units unknown) (unknown) (unknown) (no date) (unknown) (unknown) Lymph % (Auto) (units unknown) (unknown) (unknown) (no date) (unknown) (unknown) MCH 26.0 (units unknown) (unknown) (unknown) (no date) (unknown) (unknown) MCH 26.3 (units unknown) (unknown) (unknown) (no date) (unknown) (unknown) MCH (units unknown) (unknown) (unknown) (no date) (unknown) (unknown) MCHC 32.7 (units unknown) (unknown) (unknown) (no date) (unknown) (unknown) MCHC 34.0 (units unknown) (unknown) (unknown) (no date) (unknown) (unknown) MCHC (units unknown) (unknown) (unknown) (no date) (unknown) (unknown) MCV 77.5 L (units unknown) (unknown) (unknown) (no date) (unknown) (unknown) MCV 79.5 L (units unknown) (unknown) (unknown) (no date) (unknown) (unknown) MCV (units unknown) (unknown) (unknown) (no date) (unknown) (unknown) Magnesium 1.4 L (units unknown) (unknown) (unknown) (no date) (unknown) (unknown) Magnesium (units unknown) (unknown) (unknown) (no date) (unknown) (unknown) Medical History (Updated 07/13/22 @ 11:47 by Gerardo Mccormick MD) (units unknown) (unknown) (unknown) (no date) (unknown) (unknown) Medications: (units unknown) (unknown) (unknown) (no date) (unknown) (unknown) Menometrorrhagia (units unknown) (unknown) (unknown) (no date) (unknown) (unknown) [place] # (Auto) 100 (units unknown) (unknown) (unknown) (no date) (unknown) (unknown) [place] # (Auto) 200 (units unknown) (unknown) (unknown) (no date) (unknown) (unknown) [place] # (Auto) (units unknown) (unknown) (unknown) (no date) (unknown) (unknown) [place] % (Auto) 2.7 L (units unknown) (unknown) (unknown) (no date) (unknown) (unknown) [place] % (Auto) 6.4 (units unknown) (unknown) (unknown) (no date) (unknown) (unknown) [place] % (Auto) (units unknown) (unknown) (unknown) (no date) (unknown) (unknown) Mother Diabetes mellitus (units unknown) (unknown) (unknown) (no date) (unknown) (unknown) Moving all 4 extremities spontaneously (units unknown) (unknown) (unknown) (no date) (unknown) (unknown) Multivitamin 1 Table t PO 1 tab (units unknown) (unknown) (unknown) (no date) (unknown) (unknown) Multivitamins 1 tab 07/13/22 09:00 07/13/22 09:27 (units unknown) (unknown) (unknown) (no date) (unknown) (unknown) Neuro (units unknown) (unknown) (unknown) (no date) (unknown) (unknown) Neut # (Auto) 1500 (units unknown) (unknown) (unknown) (no date) (unknown) (unknown) Neut # (Auto) 1800 (units unknown) (unknown) (unknown) (no date) (unknown) (unknown) Neut # (Auto) (units unknown) (unknown) (unknown) (no date) (unknown) (unknown) Neut % (Auto) 45.5 L (units unknown) (unknown) (unknown) (no date) (unknown) (unknown) Neut % (Auto) 55.8 (units unknown) (unknown) (unknown) (no date) (unknown) (unknown) Neut % (Auto) (units unknown) (unknown) (unknown) (no date) (unknown) (unknown) Nicotine 14 Patch TO P 14 mg (units unknown) (unknown) (unknown) (no date) (unknown) (unknown) Nicotine 14 mg 07/13/22 09:00 07/13/22 09:28 (units unknown) (unknown) (unknown) (no date) (unknown) (unknown) Normal Saline 0.9% I V 0 mls/hr (units unknown) (unknown) (unknown) (no date) (unknown) (unknown) Not using accessory muscle use (units unknown) (unknown) (unknown) (no date) (unknown) (unknown) Obesity (units unknown) (unknown) (unknown) (no date) (unknown) (unknown) Objective (units unknown) (unknown) (unknown) (no date) (unknown) (unknown) 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: RN (units unknown) (unknown) (unknown) (no date) (unknown) (unknown) Other: (units unknown) (unknown) (unknown) (no date) (unknown) (unknown) Overweight (units unknown) (unknown) (unknown) (no date) (unknown) (unknown) Oxygen Delivery Method Room Air (units unknown) (unknown) (unknown) (no date) (unknown) (unknown) PFSH (units unknown) (unknown) (unknown) (no date) (unknown) (unknown) Pantoprazole 40 Mg Vial IV 40 mg (units unknown) (unknown) (unknown) (no date) (unknown) (unknown) Pantoprazole Sodium 40 mg 07/13/22 09:00 07/13/22 09:27 (units unknown) (unknown) (unknown) (no date) (unknown) (unknown) Patient Location: ICU (units unknown) (unknown) (unknown) (no date) (unknown) (unknown) Patient: Sarah Connors MR#: M (units unknown) (unknown) (unknown) (no date) (unknown) (unknown) Plt Count 129 L (units unknown) (unknown) (unknown) (no date) (unknown) (unknown) Plt Count 226 (units unknown) (unknown) (unknown) (no date) (unknown) (unknown) Plt Count (units unknown) (unknown) (unknown) (no date) (unknown) (unknown) Potassium 3.7 (units unknown) (unknown) (unknown) (no date) (unknown) (unknown) Potassium 3.9 (units unknown) (unknown) (unknown) (no date) (unknown) (unknown) Potassium (units unknown) (unknown) (unknown) (no date) (unknown) (unknown) Precedex IV 0.2 mcg/kg/hr (units unknown) (unknown) (unknown) (no date) (unknown) (unknown) Problem details: (units unknown) (unknown) (unknown) (no date) (unknown) (unknown) Protocol (units unknown) (unknown) (unknown) (no date) (unknown) (unknown) Provider location (State): [place] (units unknown) (unknown) (unknown) (no date) (unknown) (unknown) Provider: Gerardo Mccormick (units unknown) (unknown) (unknown) (no date) (unknown) (unknown) Pulse Oximetry 100 100 100 (units unknown) (unknown) (unknown) (no date) (unknown) (unknown) Pulse Oximetry 100 98 (units unknown) (unknown) (unknown) (no date) (unknown) (unknown) Pulse Oximetry 100 (units unknown) (unknown) (unknown) (no date) (unknown) (unknown) Pulse Oximetry 97 100 (units unknown) (unknown) (unknown) (no date) (unknown) (unknown) Pulse Oximetry 97 98 98 (units unknown) (unknown) (unknown) (no date) (unknown) (unknown) Pulse Oximetry 97 99 (units unknown) (unknown) (unknown) (no date) (unknown) (unknown) Pulse Oximetry 98 98 (units unknown) (unknown) (unknown) (no date) (unknown) (unknown) Pulse Oximetry 99 (units unknown) (unknown) (unknown) (no date) (unknown) (unknown) Pulse Rate 112 H 125 H 75 (units unknown) (unknown) (unknown) (no date) (unknown) (unknown) Pulse Rate 112 H (units unknown) (unknown) (unknown) (no date) (unknown) (unknown) Pulse Rate 119 H 111 H (units unknown) (unknown) (unknown) (no date) (unknown) (unknown) Pulse Rate 120 H 122 H (units unknown) (unknown) (unknown) (no date) (unknown) (unknown) Pulse Rate 122 H 113 H (units unknown) (unknown) (unknown) (no date) (unknown) (unknown) Pulse Rate 77 98 H (units unknown) (unknown) (unknown) (no date) (unknown) (unknown) Pulse Rate 97 H (units unknown) (unknown) (unknown) (no date) (unknown) (unknown) Pulse Rate 98 H 101 H 109 H (units unknown) (unknown) (unknown) (no date) (unknown) (unknown) Q12H SANDY Infusion (units unknown) (unknown) (unknown) (no date) (unknown) (unknown) Q6H SANDY Administration (units unknown) (unknown) (unknown) (no date) (unknown) (unknown) Qualifiers: (units unknown) (unknown) (unknown) (no date) (unknown) (unknown) RBC 3.45 L (units unknown) (unknown) (unknown) (no date) (unknown) (unknown) RBC 4.44 (units unknown) (unknown) (unknown) (no date) (unknown) (unknown) RBC (units unknown) (unknown) (unknown) (no date) (unknown) (unknown) RDW 17.3 H (units unknown) (unknown) (unknown) (no date) (unknown) (unknown) RDW (units unknown) (unknown) (unknown) (no date) (unknown) (unknown) Respiratory Rate 20 (units unknown) (unknown) (unknown) (no date) (unknown) (unknown) Respiratory Rate 22 (units unknown) (unknown) (unknown) (no date) (unknown) (unknown) Respiratory Rate (units unknown) (unknown) (unknown) (no date) (unknown) (unknown) S/P myringotomy with insertion of tube (units unknown) (unknown) (unknown) (no date) (unknown) (unknown) SARS-CoV-2 (PCR) Negative (units unknown) (unknown) (unknown) (no date) (unknown) (unknown) SARS-CoV-2 (PCR) (units unknown) (unknown) (unknown) (no date) (unknown) (unknown) (spontaneous vaginal delivery) (-09/05/18) (units unknown) (unknown) (unknown) (no date) (unknown) (unknown) Salicylates < 1.0 (units unknown) (unknown) (unknown) (no date) (unknown) (unknown) Salicylates (units unknown) (unknown) (unknown) (no date) (unknown) (unknown) Signed By: (units unknown) (unknown) (unknown) (no date) (unknown) (unknown) Smoker (units unknown) (unknown) (unknown) (no date) (unknown) (unknown) Smoking Status: Former smoker (units unknown) (unknown) (unknown) (no date) (unknown) (unknown) Social History (units unknown) (unknown) (unknown) (no date) (unknown) (unknown) Sodium 135 L (units unknown) (unknown) (unknown) (no date) (unknown) (unknown) Sodium 140 (units unknown) (unknown) (unknown) (no date) (unknown) (unknown) Sodium Chloride 1,00 0 mls @ 100 mls/hr 07/13/22 06:45 07/13/22 10:47 (units unknown) (unknown) (unknown) (no date) (unknown) (unknown) Sodium (units unknown) (unknown) (unknown) (no date) (unknown) (unknown) Status: Acute (units unknown) (unknown) (unknown) (no date) (unknown) (unknown) Surgical History (units unknown) (unknown) (unknown) (no date) (unknown) (unknown) TITRATE SANDY 2.495 mls/hr (units unknown) (unknown) (unknown) (no date) (unknown) (unknown) TSH 1.24 (units unknown) (unknown) (unknown) (no date) (unknown) (unknown) TSH (units unknown) (unknown) (unknown) (no date) (unknown) (unknown) 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 (units unknown) (unknown) (unknown) (no date) (unknown) (unknown) Thiamine 100 Mg Tablet PO 07/16/22 09:01 100 mg (units unknown) (unknown) (unknown) (no date) (unknown) (unknown) Thiamine HCl 100 mg 07/13/22 09:00 07/13/22 09:27 (units unknown) (unknown) (unknown) (no date) (unknown) (unknown) Time Spent With Patient (units unknown) (unknown) (unknown) (no date) (unknown) (unknown) Total Bilirubin 0.4 (units unknown) (unknown) (unknown) (no date) (unknown) (unknown) Total Bilirubin 0.8 (units unknown) (unknown) (unknown) (no date) (unknown) (unknown) Total Bilirubin (units unknown) (unknown) (unknown) (no date) (unknown) (unknown) Total Protein 6.2 L (units unknown) (unknown) (unknown) (no date) (unknown) (unknown) Total Protein 7.3 (units unknown) (unknown) (unknown) (no date) (unknown) (unknown) Total Protein (units unknown) (unknown) (unknown) (no date) (unknown) (unknown) Trade Name Edel PRN Reason Stop Dose Admin (units unknown) (unknown) (unknown) (no date) (unknown) (unknown) U Benzodiazepines Scrn Negative (units unknown) (unknown) (unknown) (no date) (unknown) (unknown) U Benzodiazepines Scrn (units unknown) (unknown) (unknown) (no date) (unknown) (unknown) U Marijuana (THC) Screen Negative (units unknown) (unknown) (unknown) (no date) (unknown) (unknown) U Marijuana (THC) Screen (units unknown) (unknown) (unknown) (no date) (unknown) (unknown) U Methamphetamines Scrn Negative (units unknown) (unknown) (unknown) (no date) (unknown) (unknown) U Methamphetamines Scrn (units unknown) (unknown) (unknown) (no date) (unknown) (unknown) U Opiates 300ng/mL cut Negative (units unknown) (unknown) (unknown) (no date) (unknown) (unknown) U Opiates 300ng/mL cut (units unknown) (unknown) (unknown) (no date) (unknown) (unknown) U Tricyclic Antidepress Negative (units unknown) (unknown) (unknown) (no date) (unknown) (unknown) U Tricyclic Antidepress (units unknown) (unknown) (unknown) (no date) (unknown) (unknown) Ur Amphetamines Screen Negative (units unknown) (unknown) (unknown) (no date) (unknown) (unknown) Ur Amphetamines Screen (units unknown) (unknown) (unknown) (no date) (unknown) (unknown) Ur Barbiturates Screen Negative (units unknown) (unknown) (unknown) (no date) (unknown) (unknown) Ur Barbiturates Screen (units unknown) (unknown) (unknown) (no date) (unknown) (unknown) Ur Culture Indicated ? Specimen cultured (units unknown) (unknown) (unknown) (no date) (unknown) (unknown) Ur Culture Indicated? (units unknown) (unknown) (unknown) (no date) (unknown) (unknown) Ur MDMA Scrn (Ecstasy) Negative (units unknown) (unknown) (unknown) (no date) (unknown) (unknown) Ur MDMA Scrn (Ecstasy) (units unknown) (unknown) (unknown) (no date) (unknown) (unknown) Ur Oxycodone Screen Negative (units unknown) (unknown) (unknown) (no date) (unknown) (unknown) Ur Oxycodone Screen (units unknown) (unknown) (unknown) (no date) (unknown) (unknown) Ur Phencyclidine Scr n Negative (units unknown) (unknown) (unknown) (no date) (unknown) (unknown) Ur Phencyclidine Scrn (units unknown) (unknown) (unknown) (no date) (unknown) (unknown) Ur Squamous Epith Cells 1-5 /hpf (units unknown) (unknown) (unknown) (no date) (unknown) (unknown) Ur Squamous Epith Cells (units unknown) (unknown) (unknown) (no date) (unknown) (unknown) Urine Bacteria Many (>30) H (units unknown) (unknown) (unknown) (no date) (unknown) (unknown) Urine Bacteria (units unknown) (unknown) (unknown) (no date) (unknown) (unknown) Urine Cocaine Screen Negative (units unknown) (unknown) (unknown) (no date) (unknown) (unknown) Urine Cocaine Screen (units unknown) (unknown) (unknown) (no date) (unknown) (unknown) Urine Methadone Screen Negative (units unknown) (unknown) (unknown) (no date) (unknown) (unknown) Urine Methadone Screen (units unknown) (unknown) (unknown) (no date) (unknown) (unknown) Urine RBC 1-5/hpf (units unknown) (unknown) (unknown) (no date) (unknown) (unknown) Urine RBC (units unknown) (unknown) (unknown) (no date) (unknown) (unknown) Urine WBC 1-5/hpf (units unknown) (unknown) (unknown) (no date) (unknown) (unknown) Urine WBC (units unknown) (unknown) (unknown) (no date) (unknown) (unknown) Visit Medications (administered) (units unknown) (unknown) (unknown) (no date) (unknown) (unknown) Vital Signs (units unknown) (unknown) (unknown) (no date) (unknown) (unknown) WBC 3.3 L (units unknown) (unknown) (unknown) (no date) (unknown) (unknown) WBC (units unknown) (unknown) (unknown) (no date) (unknown) (unknown) [Embedded Image Not Available] (units unknown) (unknown) (unknown) (no date) (unknown) (unknown) [Rx Confirmed 07/03/20] (units unknown) (unknown) (unknown) (no date) (unknown) (unknown) [Rx] (units unknown) (unknown) (unknown) (no date) (unknown) (unknown) acetaminophen 325 mg tablet (Tylenol) 325 mg PO Q6H PRN pain #20 tabs 02/05/20 (units unknown) (unknown) (unknown) (no date) (unknown) (unknown) alcohol intake: former (units unknown) (unknown) (unknown) (no date) (unknown) (unknown) caps 02/05/20 [Rx Confirmed 07/03/20] (units unknown) (unknown) (unknown) (no date) (unknown) (unknown) current occupational exposures/hazards: Yes (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 with Pandemic ) (units unknown) (unknown) (unknown) (no date) (unknown) (unknown) cystitis without hematuria (units unknown) (unknown) (unknown) (no date) (unknown) (unknown) dexmedeTOMIDine in 0.9 % NaCL 400 mcg in 100 mls @ 2.495 mls/hr 07/13/22 11:15 (units unknown) (unknown) (unknown) (no date) (unknown) (unknown) diphenhydramine HCl 25 mg capsule (Benadryl) 25 mg PO BEDTIME PRN insomnia #20 (units unknown) (unknown) (unknown) (no date) (unknown) (unknown) docusate sodium 100 mg capsule (Colace) 100 mg PO BID #30 caps (units unknown) (unknown) (unknown) (no date) (unknown) (unknown) education level: college 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[employer] (units unknown) (unknown) (unknown) (no date) (unknown) (unknown) following commands (units unknown) (unknown) (unknown) (no date) (unknown) (unknown) household members: children (units unknown) (unknown) (unknown) (no date) (unknown) (unknown) ibuprofen 600 mg tablet 600 mg PO Q6HR PRN Pain, Mild (1-3) #30 tabs 07/04/20 (units unknown) (unknown) (unknown) (no date) (unknown) (unknown) marital status: (units unknown) (unknown) (unknown) (no date) (unknown) (unknown) number of children: 1 (units unknown) (unknown) (unknown) (no date) (unknown) (unknown) occupational status: employed (units unknown) (unknown) (unknown) (no date) (unknown) (unknown) ondansetron 4 mg disintegrating tablet 4 mg PO Q6H PRN nausea and vomiting #14 (units unknown) (unknown) (unknown) (no date) (unknown) (unknown) ondansetron 4 mg disintegrating tablet 4 mg PO Q8H PRN nausea and vomiting #20 (units unknown) (unknown) (unknown) (no date) (unknown) (unknown) ondansetron 4 mg disintegrating tablet 4 mg PO Q8H PRN nausea and vomiting #30 (units unknown) (unknown) (unknown) (no date) (unknown) (unknown) prenat.vits,otis,min- i thang-folic 1 tab PO DAILY 12/30/19 [History Confirmed (units unknown) (unknown) (unknown) (no date) (unknown) (unknown) second hand exposure : No (growing up as a child - not currently) (units unknown) (unknown) (unknown) (no date) (unknown) (unknown) special renee needs: No (units unknown) (unknown) (unknown) (no date) (unknown) (unknown) substance use type: does not use (units unknown) (unknown) (unknown) (no date) (unknown) (unknown) tabs 06/12/22 [Rx] (units unknown) (unknown) (unknown) (no date) (unknown) (unknown) tabs 01/01/20 [Rx Confirmed 07/03/20] (units unknown) (unknown) (unknown) (no date) (unknown) (unknown) tabs 02/05/20 [Rx Confirmed 07/03/20] (units unknown) (unknown) (unknown) (no date) (unknown) (unknown) today; this time is exclusive of procedural time. (units unknown) (unknown) (unknown) (no date) (unknown) (unknown) tramadol 50 mg table t 50 mg PO Q6H PRN pain #10 tabs 06/12/22 [Rx] (units unknown) (unknown) Result panel [id number] (unknown) (no date) (unknown) (unknown) (no value) (units unknown) (unknown) (unknown) (no date) (unknown) (unknown) (1) Alcohol withdrawal delirium, acute, hyperactive: (units unknown) (unknown) (unknown) (no date) (unknown) (unknown) (2) Alcohol use disorder: (units unknown) (unknown) (unknown) (no date) (unknown) (unknown) (3) Acute cystitis: (units unknown) (unknown) (unknown) (no date) (unknown) (unknown) (past 8 hours): (units unknown) (unknown) (unknown) (no date) (unknown) (unknown) 0.2 MCG/KG/HR (units unknown) (unknown) (unknown) (no date) (unknown) (unknown) [id number] (units unknown) (unknown) (unknown) (no date) (unknown) (unknown) 02/21/21] (units unknown) (unknown) (unknown) (no date) (unknown) (unknown) 07/12/22 07/12/22 07/12/22 (units unknown) (unknown) (unknown) (no date) (unknown) (unknown) 07/13/22 07/13/22 (units unknown) (unknown) (unknown) (no date) (unknown) (unknown) 07/13/22 08:50 (units unknown) (unknown) (unknown) (no date) (unknown) (unknown) 07/13/22 11:13 (units unknown) (unknown) (unknown) (no date) (unknown) (unknown) 07/13/22 (units unknown) (unknown) (unknown) (no date) (unknown) (unknown) 04:00 07/13/22 (units unknown) (unknown) (unknown) (no date) (unknown) (unknown) 04:30 07/13/22 (units unknown) (unknown) (unknown) (no date) (unknown) (unknown) 05:00 (units unknown) (unknown) (unknown) (no date) (unknown) (unknown) 05:30 07/13/22 (units unknown) (unknown) (unknown) (no date) (unknown) (unknown) 05:54 07/13/22 (units unknown) (unknown) (unknown) (no date) (unknown) (unknown) 05:54 (units unknown) (unknown) (unknown) (no date) (unknown) (unknown) 06:00 07/13/22 (units unknown) (unknown) (unknown) (no date) (unknown) (unknown) 06:39 (units unknown) (unknown) (unknown) (no date) (unknown) (unknown) 06:55 07/13/22 (units unknown) (unknown) (unknown) (no date) (unknown) (unknown) 07:04 07/13/22 (units unknown) (unknown) (unknown) (no date) (unknown) (unknown) 07:04 (units unknown) (unknown) (unknown) (no date) (unknown) (unknown) 07:33 07/13/22 (units unknown) (unknown) (unknown) (no date) (unknown) (unknown) 07:34 07/13/22 (units unknown) (unknown) (unknown) (no date) (unknown) (unknown) 07:34 (units unknown) (unknown) (unknown) (no date) (unknown) (unknown) 08:00 07/13/22 (units unknown) (unknown) (unknown) (no date) (unknown) (unknown) 08:33 (units unknown) (unknown) (unknown) (no date) (unknown) (unknown) 08:50 08:50 (units unknown) (unknown) (unknown) (no date) (unknown) (unknown) 02/05/20 [Rx Confirmed 07/03/20] (units unknown) (unknown) (unknown) (no date) (unknown) (unknown) 09:00 07/13/22 (units unknown) (unknown) (unknown) (no date) (unknown) (unknown) 09:46 (units unknown) (unknown) (unknown) (no date) (unknown) (unknown) 09:47 07/13/22 (units unknown) (unknown) (unknown) (no date) (unknown) (unknown) 16:32 16:32 16:32 (units unknown) (unknown) (unknown) (no date) (unknown) (unknown) 19:15 19:15 19:15 (units unknown) (unknown) (unknown) (no date) (unknown) (unknown) 65, urinalysis indicated many bacteria. As per the bedside nurse, patient (units unknown) (unknown) (unknown) (no date) (unknown) (unknown) 97% on room air. She weighs 49.8 kg with a BMI of 20.1. WBC is 3.3, hemoglobin (units unknown) (unknown) (unknown) (no date) (unknown) (unknown) ALT 19 (units unknown) (unknown) (unknown) (no date) (unknown) (unknown) ALT 21 (units unknown) (unknown) (unknown) (no date) (unknown) (unknown) ALT (units unknown) (unknown) (unknown) (no date) (unknown) (unknown) AST 52 H (units unknown) (unknown) (unknown) (no date) (unknown) (unknown) AST 67 H (units unknown) (unknown) (unknown) (no date) (unknown) (unknown) AST (units unknown) (unknown) (unknown) (no date) (unknown) (unknown) Acetaminophen < 10 (units unknown) (unknown) (unknown) (no date) (unknown) (unknown) Acetaminophen (units unknown) (unknown) (unknown) (no date) (unknown) (unknown) Administration (units unknown) (unknown) (unknown) (no date) (unknown) (unknown) Age/Sex: 31 / F (units unknown) (unknown) (unknown) (no date) (unknown) (unknown) Albumin 3.5 (units unknown) (unknown) (unknown) (no date) (unknown) (unknown) Albumin 4.3 (units unknown) (unknown) (unknown) (no date) (unknown) (unknown) Albumin (units unknown) (unknown) (unknown) (no date) (unknown) (unknown) Albumin/Globulin Ratio 1.3 (units unknown) (unknown) (unknown) (no date) (unknown) (unknown) Albumin/Globulin Ratio 1.4 (units unknown) (unknown) (unknown) (no date) (unknown) (unknown) Albumin/Globulin Ratio (units unknown) (unknown) (unknown) (no date) (unknown) (unknown) Alcohol Withdrawal (units unknown) (unknown) (unknown) (no date) (unknown) (unknown) Alcohol withdrawal delirium, acute, hyperactive (units unknown) (unknown) (unknown) (no date) (unknown) (unknown) Alcoholism (units unknown) (unknown) (unknown) (no date) (unknown) (unknown) Alkaline Phosphatase 75 (units unknown) (unknown) (unknown) (no date) (unknown) (unknown) Alkaline Phosphatase 98 (units unknown) (unknown) (unknown) (no date) (unknown) (unknown) Alkaline Phosphatase (units unknown) (unknown) (unknown) (no date) (unknown) (unknown) Anemia (-2018) (units unknown) (unknown) (unknown) (no date) (unknown) (unknown) Assessment + Plan (units unknown) (unknown) (unknown) (no date) (unknown) (unknown) Assessment and plan (units unknown) (unknown) (unknown) (no date) (unknown) (unknown) Awake, oriented x 3, severely confused, intermittently agitated/restless but (units unknown) (unknown) (unknown) (no date) (unknown) (unknown) BUN 11 (units unknown) (unknown) (unknown) (no date) (unknown) (unknown) BUN 9 (units unknown) (unknown) (unknown) (no date) (unknown) (unknown) BUN (units unknown) (unknown) (unknown) (no date) (unknown) (unknown) BUN/Creatinine Ratio 11.0 (units unknown) (unknown) (unknown) (no date) (unknown) (unknown) BUN/Creatinine Ratio 16.4 (units unknown) (unknown) (unknown) (no date) (unknown) (unknown) BUN/Creatinine Ratio (units unknown) (unknown) (unknown) (no date) (unknown) (unknown) Baso # (Auto) 0 (units unknown) (unknown) (unknown) (no date) (unknown) (unknown) Baso # (Auto) (units unknown) (unknown) (unknown) (no date) (unknown) (unknown) Baso % (Auto) 0.7 (units unknown) (unknown) (unknown) (no date) (unknown) (unknown) Baso % (Auto) 0.9 (units unknown) (unknown) (unknown) (no date) (unknown) (unknown) Baso % (Auto) (units unknown) (unknown) (unknown) (no date) (unknown) (unknown) Blood Pressure 104/5 9 L 123/58 L (units unknown) (unknown) (unknown) (no date) (unknown) (unknown) Blood Pressure 111/5 9 L (units unknown) (unknown) (unknown) (no date) (unknown) (unknown) Blood Pressure 116/7 5 116/65 (units unknown) (unknown) (unknown) (no date) (unknown) (unknown) Blood Pressure 93/54 L (units unknown) (unknown) (unknown) (no date) (unknown) (unknown) Blood Pressure 99/52 L (units unknown) (unknown) (unknown) (no date) (unknown) (unknown) Blood Pressure (units unknown) (unknown) (unknown) (no date) (unknown) (unknown) CIWAPRN PRN Administration (units unknown) (unknown) (unknown) (no date) (unknown) (unknown) CONT SANDY Infusion (units unknown) (unknown) (unknown) (no date) (unknown) (unknown) Calcium 8.0 L (units unknown) (unknown) (unknown) (no date) (unknown) (unknown) Calcium 8.1 L (units unknown) (unknown) (unknown) (no date) (unknown) (unknown) Calcium (units unknown) (unknown) (unknown) (no date) (unknown) (unknown) Carbon Dioxide 23 (units unknown) (unknown) (unknown) (no date) (unknown) (unknown) Carbon Dioxide 28 (units unknown) (unknown) (unknown) (no date) (unknown) (unknown) Carbon Dioxide (units unknown) (unknown) (unknown) (no date) (unknown) (unknown) Cardio (units unknown) (unknown) (unknown) (no date) (unknown) (unknown) Chest (units unknown) (unknown) (unknown) (no date) (unknown) (unknown) Chief complaint: Acute alcohol withdrawal (units unknown) (unknown) (unknown) (no date) (unknown) (unknown) Chlordiazepoxide 25 Mg Capsule PO 50 mg (units unknown) (unknown) (unknown) (no date) (unknown) (unknown) Chlordiazepoxide HCl 50 mg 07/13/22 09:10 07/13/22 09:45 (units unknown) (unknown) (unknown) (no date) (unknown) (unknown) Chloride 100 (units unknown) (unknown) (unknown) (no date) (unknown) (unknown) Chloride 104 (units unknown) (unknown) (unknown) (no date) (unknown) (unknown) Chloride (units unknown) (unknown) (unknown) (no date) (unknown) (unknown) Cipro IV Infused (units unknown) (unknown) (unknown) (no date) (unknown) (unknown) Ciprofloxacin 400 mg in 200 mls @ 200 mls/hr 07/13/22 08:00 07/13/22 09:21 (units unknown) (unknown) (unknown) (no date) (unknown) (unknown) Consent obtained for tele-bioinformatics technician care: Yes (units unknown) (unknown) (unknown) (no date) (unknown) (unknown) Const (units unknown) (unknown) (unknown) (no date) (unknown) (unknown) Consult details (units unknown) (unknown) (unknown) (no date) (unknown) (unknown) Creatinine 0.67 (units unknown) (unknown) (unknown) (no date) (unknown) (unknown) Creatinine 0.82 (units unknown) (unknown) (unknown) (no date) (unknown) (unknown) Creatinine (units unknown) (unknown) (unknown) (no date) (unknown) (unknown) Critical Care time: (units unknown) (unknown) (unknown) (no date) (unknown) (unknown) Current Medications (units unknown) (unknown) (unknown) (no date) (unknown) (unknown) DAILY SANDY Administration (units unknown) (unknown) (unknown) (no date) (unknown) (unknown) : 1990 Acct:[id number] (units unknown) (unknown) (unknown) (no date) (unknown) (unknown) Date of Service: 07/13/22 (units unknown) (unknown) (unknown) (no date) (unknown) (unknown) Enoxaparin 40 Mg/0.4 Ml Syringe SUBCUT 40 mg (units unknown) (unknown) (unknown) (no date) (unknown) (unknown) Enoxaparin Sodium 40 mg 07/13/22 09:00 07/13/22 09:28 (units unknown) (unknown) (unknown) (no date) (unknown) (unknown) Eos # (Auto) 0 (units unknown) (unknown) (unknown) (no date) (unknown) (unknown) Eos # (Auto) (units unknown) (unknown) (unknown) (no date) (unknown) (unknown) Eos % (Auto) 0.3 L (units unknown) (unknown) (unknown) (no date) (unknown) (unknown) Eos % (Auto) (units unknown) (unknown) (unknown) (no date) (unknown) (unknown) Estimated GFR > 60 (units unknown) (unknown) (unknown) (no date) (unknown) (unknown) Estimated GFR (units unknown) (unknown) (unknown) (no date) (unknown) (unknown) Ethyl Alcohol 338 H (units unknown) (unknown) (unknown) (no date) (unknown) (unknown) Ethyl Alcohol (units unknown) (unknown) (unknown) (no date) (unknown) (unknown) Exam (units unknown) (unknown) (unknown) (no date) (unknown) (unknown) Family History (units unknown) (unknown) (unknown) (no date) (unknown) (unknown) Family/Other Alcoholism (units unknown) (unknown) (unknown) (no date) (unknown) (unknown) Family/Other Diabete s mellitus (units unknown) (unknown) (unknown) (no date) (unknown) (unknown) Father Alcoholism (units unknown) (unknown) (unknown) (no date) (unknown) (unknown) Folic Acid 1 Mg Tablet PO 1 mg (units unknown) (unknown) (unknown) (no date) (unknown) (unknown) Folic Acid 1 mg 07/13/22 09:00 07/13/22 09:27 (units unknown) (unknown) (unknown) (no date) (unknown) (unknown) Free T4 0.93 (units unknown) (unknown) (unknown) (no date) (unknown) (unknown) Free T4 (units unknown) (unknown) (unknown) (no date) (unknown) (unknown) Generic Name Dose Route Start Last Admin (units unknown) (unknown) (unknown) (no date) (unknown) (unknown) Globulin 2.7 (units unknown) (unknown) (unknown) (no date) (unknown) (unknown) Globulin 3.0 (units unknown) (unknown) (unknown) (no date) (unknown) (unknown) Globulin (units unknown) (unknown) (unknown) (no date) (unknown) (unknown) Glucose 111 H (units unknown) (unknown) (unknown) (no date) (unknown) (unknown) Glucose 138 H (units unknown) (unknown) (unknown) (no date) (unknown) (unknown) Glucose (units unknown) (unknown) (unknown) (no date) (unknown) (unknown) Grandfather Smoker (units unknown) (unknown) (unknown) (no date) (unknown) (unknown) Grandfather Unknown whether patient has any health problems (units unknown) (unknown) (unknown) (no date) (unknown) (unknown) Grandmother Diabetes mellitus (units unknown) (unknown) (unknown) (no date) (unknown) (unknown) Grandmother Hypoglycemia (units unknown) (unknown) (unknown) (no date) (unknown) (unknown) H/O dilation and curettage (-12/14/16) (units unknown) (unknown) (unknown) (no date) (unknown) (unknown) H/O wisdom tooth extraction (-2013) (units unknown) (unknown) (unknown) (no date) (unknown) (unknown) Hct 26.8 L (units unknown) (unknown) (unknown) (no date) (unknown) (unknown) Hct 35.3 L (units unknown) (unknown) (unknown) (no date) (unknown) (unknown) Hct (units unknown) (unknown) (unknown) (no date) (unknown) (unknown) Hematuria presence: without hematuria Qualified Code(s): N30.00 - Acute (units unknown) (unknown) (unknown) (no date) (unknown) (unknown) Hgb 11.5 L (units unknown) (unknown) (unknown) (no date) (unknown) (unknown) Hgb 9.1 L (units unknown) (unknown) (unknown) (no date) (unknown) (unknown) Hgb (units unknown) (unknown) (unknown) (no date) (unknown) (unknown) History of Present Illness (units unknown) (unknown) (unknown) (no date) (unknown) (unknown) Home Medications (units unknown) (unknown) (unknown) (no date) (unknown) (unknown) I spent a total of [ ] minutes of critical care time on this patient's care (units unknown) (unknown) (unknown) (no date) (unknown) (unknown) In Sinus Tachycardia (units unknown) (unknown) (unknown) (no date) (unknown) (unknown) 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 (units unknown) (unknown) (unknown) (no date) (unknown) (unknown) Insomnia (units unknown) (unknown) (unknown) (no date) (unknown) (unknown) [address] [address] (units unknown) (unknown) (unknown) (no date) (unknown) (unknown) May 2022 for similar symptoms including most recent visit with blood alcohol (units unknown) (unknown) (unknown) (no date) (unknown) (unknown) Laboratory Results - last 24 hr (units unknown) (unknown) (unknown) (no date) (unknown) (unknown) Labs (units unknown) (unknown) (unknown) (no date) (unknown) (unknown) Labs: (units unknown) (unknown) (unknown) (no date) (unknown) (unknown) Lorazepam 0 mg 07/13/22 06:40 07/13/22 10:15 (units unknown) (unknown) (unknown) (no date) (unknown) (unknown) Lorazepam 2 Mg/Ml In j IV 2 mg (units unknown) (unknown) (unknown) (no date) (unknown) (unknown) Lymph # (Auto) 1200 (units unknown) (unknown) (unknown) (no date) (unknown) (unknown) Lymph # (Auto) 1700 (units unknown) (unknown) (unknown) (no date) (unknown) (unknown) Lymph # (Auto) (units unknown) (unknown) (unknown) (no date) (unknown) (unknown) Lymph % (Auto) 36.8 (units unknown) (unknown) (unknown) (no date) (unknown) (unknown) Lymph % (Auto) 50.6 H (units unknown) (unknown) (unknown) (no date) (unknown) (unknown) Lymph % (Auto) (units unknown) (unknown) (unknown) (no date) (unknown) (unknown) MCH 26.0 (units unknown) (unknown) (unknown) (no date) (unknown) (unknown) MCH 26.3 (units unknown) (unknown) (unknown) (no date) (unknown) (unknown) MCH (units unknown) (unknown) (unknown) (no date) (unknown) (unknown) MCHC 32.7 (units unknown) (unknown) (unknown) (no date) (unknown) (unknown) MCHC 34.0 (units unknown) (unknown) (unknown) (no date) (unknown) (unknown) MCHC (units unknown) (unknown) (unknown) (no date) (unknown) (unknown) MCV 77.5 L (units unknown) (unknown) (unknown) (no date) (unknown) (unknown) MCV 79.5 L (units unknown) (unknown) (unknown) (no date) (unknown) (unknown) MCV (units unknown) (unknown) (unknown) (no date) (unknown) (unknown) Magnesium 1.4 L (units unknown) (unknown) (unknown) (no date) (unknown) (unknown) Magnesium (units unknown) (unknown) (unknown) (no date) (unknown) (unknown) Medical History (Updated 07/13/22 @ 11:47 by Gerardo Mccormick MD) (units unknown) (unknown) (unknown) (no date) (unknown) (unknown) Medications: (units unknown) (unknown) (unknown) (no date) (unknown) (unknown) Menometrorrhagia (units unknown) (unknown) (unknown) (no date) (unknown) (unknown) [place] # (Auto) 100 (units unknown) (unknown) (unknown) (no date) (unknown) (unknown) [place] # (Auto) 200 (units unknown) (unknown) (unknown) (no date) (unknown) (unknown) [place] # (Auto) (units unknown) (unknown) (unknown) (no date) (unknown) (unknown) [place] % (Auto) 2.7 L (units unknown) (unknown) (unknown) (no date) (unknown) (unknown) [place] % (Auto) 6.4 (units unknown) (unknown) (unknown) (no date) (unknown) (unknown) [place] % (Auto) (units unknown) (unknown) (unknown) (no date) (unknown) (unknown) Mother Diabetes mellitus (units unknown) (unknown) (unknown) (no date) (unknown) (unknown) Moving all 4 extremities spontaneously (units unknown) (unknown) (unknown) (no date) (unknown) (unknown) Multivitamin 1 Table t PO 1 tab (units unknown) (unknown) (unknown) (no date) (unknown) (unknown) Multivitamins 1 tab 07/13/22 09:00 07/13/22 09:27 (units unknown) (unknown) (unknown) (no date) (unknown) (unknown) Narrative: (units unknown) (unknown) (unknown) (no date) (unknown) (unknown) Neuro (units unknown) (unknown) (unknown) (no date) (unknown) (unknown) Neut # (Auto) 1500 (units unknown) (unknown) (unknown) (no date) (unknown) (unknown) Neut # (Auto) 1800 (units unknown) (unknown) (unknown) (no date) (unknown) (unknown) Neut # (Auto) (units unknown) (unknown) (unknown) (no date) (unknown) (unknown) Neut % (Auto) 45.5 L (units unknown) (unknown) (unknown) (no date) (unknown) (unknown) Neut % (Auto) 55.8 (units unknown) (unknown) (unknown) (no date) (unknown) (unknown) Neut % (Auto) (units unknown) (unknown) (unknown) (no date) (unknown) (unknown) Nicotine 14 Patch TO P 14 mg (units unknown) (unknown) (unknown) (no date) (unknown) (unknown) Nicotine 14 mg 07/13/22 09:00 07/13/22 09:28 (units unknown) (unknown) (unknown) (no date) (unknown) (unknown) Normal Saline 0.9% I V 0 mls/hr (units unknown) (unknown) (unknown) (no date) (unknown) (unknown) Not using accessory muscle use (units unknown) (unknown) (unknown) (no date) (unknown) (unknown) Obesity (units unknown) (unknown) (unknown) (no date) (unknown) (unknown) Objective (units unknown) (unknown) (unknown) (no date) (unknown) (unknown) 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: RN (units unknown) (unknown) (unknown) (no date) (unknown) (unknown) Other: (units unknown) (unknown) (unknown) (no date) (unknown) (unknown) Overweight (units unknown) (unknown) (unknown) (no date) (unknown) (unknown) Oxygen Delivery Method Room Air (units unknown) (unknown) (unknown) (no date) (unknown) (unknown) PFSH (units unknown) (unknown) (unknown) (no date) (unknown) (unknown) Pantoprazole 40 Mg Vial IV 40 mg (units unknown) (unknown) (unknown) (no date) (unknown) (unknown) Pantoprazole Sodium 40 mg 07/13/22 09:00 07/13/22 09:27 (units unknown) (unknown) (unknown) (no date) (unknown) (unknown) Patient Location: ICU (units unknown) (unknown) (unknown) (no date) (unknown) (unknown) Patient stated that she used to be sober for about 18 months in the past but had (units unknown) (unknown) (unknown) (no date) (unknown) (unknown) Patient: Sarah Connors MR#: M (units unknown) (unknown) (unknown) (no date) (unknown) (unknown) Plt Count 129 L (units unknown) (unknown) (unknown) (no date) (unknown) (unknown) Plt Count 226 (units unknown) (unknown) (unknown) (no date) (unknown) (unknown) Plt Count (units unknown) (unknown) (unknown) (no date) (unknown) (unknown) Potassium 3.7 (units unknown) (unknown) (unknown) (no date) (unknown) (unknown) Potassium 3.9 (units unknown) (unknown) (unknown) (no date) (unknown) (unknown) Potassium (units unknown) (unknown) (unknown) (no date) (unknown) (unknown) Precedex IV 0.2 mcg/kg/hr (units unknown) (unknown) (unknown) (no date) (unknown) (unknown) Problem details: (units unknown) (unknown) (unknown) (no date) (unknown) (unknown) Protocol (units unknown) (unknown) (unknown) (no date) (unknown) (unknown) Provider location (State): [place] (units unknown) (unknown) (unknown) (no date) (unknown) (unknown) Provider: Gerardo Mccormick (units unknown) (unknown) (unknown) (no date) (unknown) (unknown) Pulse Oximetry 100 100 100 (units unknown) (unknown) (unknown) (no date) (unknown) (unknown) Pulse Oximetry 100 98 (units unknown) (unknown) (unknown) (no date) (unknown) (unknown) Pulse Oximetry 100 (units unknown) (unknown) (unknown) (no date) (unknown) (unknown) Pulse Oximetry 97 100 (units unknown) (unknown) (unknown) (no date) (unknown) (unknown) Pulse Oximetry 97 98 98 (units unknown) (unknown) (unknown) (no date) (unknown) (unknown) Pulse Oximetry 97 99 (units unknown) (unknown) (unknown) (no date) (unknown) (unknown) Pulse Oximetry 98 98 (units unknown) (unknown) (unknown) (no date) (unknown) (unknown) Pulse Oximetry 99 (units unknown) (unknown) (unknown) (no date) (unknown) (unknown) Pulse Rate 112 H 125 H 75 (units unknown) (unknown) (unknown) (no date) (unknown) (unknown) Pulse Rate 112 H (units unknown) (unknown) (unknown) (no date) (unknown) (unknown) Pulse Rate 119 H 111 H (units unknown) (unknown) (unknown) (no date) (unknown) (unknown) Pulse Rate 120 H 122 H (units unknown) (unknown) (unknown) (no date) (unknown) (unknown) Pulse Rate 122 H 113 H (units unknown) (unknown) (unknown) (no date) (unknown) (unknown) Pulse Rate 77 98 H (units unknown) (unknown) (unknown) (no date) (unknown) (unknown) Pulse Rate 97 H (units unknown) (unknown) (unknown) (no date) (unknown) (unknown) Pulse Rate 98 H 101 H 109 H (units unknown) (unknown) (unknown) (no date) (unknown) (unknown) Q12H SANDY Infusion (units unknown) (unknown) (unknown) (no date) (unknown) (unknown) Q6H SANDY Administration (units unknown) (unknown) (unknown) (no date) (unknown) (unknown) Qualifiers: (units unknown) (unknown) (unknown) (no date) (unknown) (unknown) RBC 3.45 L (units unknown) (unknown) (unknown) (no date) (unknown) (unknown) RBC 4.44 (units unknown) (unknown) (unknown) (no date) (unknown) (unknown) RBC (units unknown) (unknown) (unknown) (no date) (unknown) (unknown) RDW 17.3 H (units unknown) (unknown) (unknown) (no date) (unknown) (unknown) RDW (units unknown) (unknown) (unknown) (no date) (unknown) (unknown) Respiratory Rate 20 (units unknown) (unknown) (unknown) (no date) (unknown) (unknown) Respiratory Rate 22 (units unknown) (unknown) (unknown) (no date) (unknown) (unknown) Respiratory Rate (units unknown) (unknown) (unknown) (no date) (unknown) (unknown) S/P myringotomy with insertion of tube (units unknown) (unknown) (unknown) (no date) (unknown) (unknown) SARS-CoV-2 (PCR) Negative (units unknown) (unknown) (unknown) (no date) (unknown) (unknown) SARS-CoV-2 (PCR) (units unknown) (unknown) (unknown) (no date) (unknown) (unknown) (spontaneous vaginal delivery) (-09/05/18) (units unknown) (unknown) (unknown) (no date) (unknown) (unknown) Salicylates < 1.0 (units unknown) (unknown) (unknown) (no date) (unknown) (unknown) Salicylates (units unknown) (unknown) (unknown) (no date) (unknown) (unknown) She was also found t o have UTI and was given a dose of oral cephalexin. Her (units unknown) (unknown) (unknown) (no date) (unknown) (unknown) Signed By: (units unknown) (unknown) (unknown) (no date) (unknown) (unknown) Smoker (units unknown) (unknown) (unknown) (no date) (unknown) (unknown) Smoking Status: Former smoker (units unknown) (unknown) (unknown) (no date) (unknown) (unknown) Social History (units unknown) (unknown) (unknown) (no date) (unknown) (unknown) Sodium 135 L (units unknown) (unknown) (unknown) (no date) (unknown) (unknown) Sodium 140 (units unknown) (unknown) (unknown) (no date) (unknown) (unknown) Sodium Chloride 1,00 0 mls @ 100 mls/hr 07/13/22 06:45 07/13/22 10:47 (units unknown) (unknown) (unknown) (no date) (unknown) (unknown) Sodium (units unknown) (unknown) (unknown) (no date) (unknown) (unknown) Status: Acute (units unknown) (unknown) (unknown) (no date) (unknown) (unknown) Surgical History (units unknown) (unknown) (unknown) (no date) (unknown) (unknown) TITRATE SANDY 2.495 mls/hr (units unknown) (unknown) (unknown) (no date) (unknown) (unknown) TSH 1.24 (units unknown) (unknown) (unknown) (no date) (unknown) (unknown) TSH (units unknown) (unknown) (unknown) (no date) (unknown) (unknown) 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 (units unknown) (unknown) (unknown) (no date) (unknown) (unknown) Thiamine 100 Mg Tablet PO 07/16/22 09:01 100 mg (units unknown) (unknown) (unknown) (no date) (unknown) (unknown) Thiamine HCl 100 mg 07/13/22 09:00 07/13/22 09:27 (units unknown) (unknown) (unknown) (no date) (unknown) (unknown) This is a 31 years old female with history of alcohol use disorder who presented (units unknown) (unknown) (unknown) (no date) (unknown) (unknown) Time Spent With Patient (units unknown) (unknown) (unknown) (no date) (unknown) (unknown) Total Bilirubin 0.4 (units unknown) (unknown) (unknown) (no date) (unknown) (unknown) Total Bilirubin 0.8 (units unknown) (unknown) (unknown) (no date) (unknown) (unknown) Total Bilirubin (units unknown) (unknown) (unknown) (no date) (unknown) (unknown) Total Protein 6.2 L (units unknown) (unknown) (unknown) (no date) (unknown) (unknown) Total Protein 7.3 (units unknown) (unknown) (unknown) (no date) (unknown) (unknown) Total Protein (units unknown) (unknown) (unknown) (no date) (unknown) (unknown) Trade Name Freq PRN Reason Stop Dose Admin (units unknown) (unknown) (unknown) (no date) (unknown) (unknown) U Benzodiazepines Scrn Negative (units unknown) (unknown) (unknown) (no date) (unknown) (unknown) U Benzodiazepines Scrn (units unknown) (unknown) (unknown) (no date) (unknown) (unknown) U Marijuana (THC) Screen Negative (units unknown) (unknown) (unknown) (no date) (unknown) (unknown) U Marijuana (THC) Screen (units unknown) (unknown) (unknown) (no date) (unknown) (unknown) U Methamphetamines Scrn Negative (units unknown) (unknown) (unknown) (no date) (unknown) (unknown) U Methamphetamines Scrn (units unknown) (unknown) (unknown) (no date) (unknown) (unknown) U Opiates 300ng/mL cut Negative (units unknown) (unknown) (unknown) (no date) (unknown) (unknown) U Opiates 300ng/mL cut (units unknown) (unknown) (unknown) (no date) (unknown) (unknown) U Tricyclic Antidepress Negative (units unknown) (unknown) (unknown) (no date) (unknown) (unknown) U Tricyclic Antidepress (units unknown) (unknown) (unknown) (no date) (unknown) (unknown) Ur Amphetamines Screen Negative (units unknown) (unknown) (unknown) (no date) (unknown) (unknown) Ur Amphetamines Screen (units unknown) (unknown) (unknown) (no date) (unknown) (unknown) Ur Barbiturates Screen Negative (units unknown) (unknown) (unknown) (no date) (unknown) (unknown) Ur Barbiturates Screen (units unknown) (unknown) (unknown) (no date) (unknown) (unknown) Ur Culture Indicated ? Specimen cultured (units unknown) (unknown) (unknown) (no date) (unknown) (unknown) Ur Culture Indicated? (units unknown) (unknown) (unknown) (no date) (unknown) (unknown) Ur MDMA Scrn (Ecstasy) Negative (units unknown) (unknown) (unknown) (no date) (unknown) (unknown) Ur MDMA Scrn (Ecstasy) (units unknown) (unknown) (unknown) (no date) (unknown) (unknown) Ur Oxycodone Screen Negative (units unknown) (unknown) (unknown) (no date) (unknown) (unknown) Ur Oxycodone Screen (units unknown) (unknown) (unknown) (no date) (unknown) (unknown) Ur Phencyclidine Scr n Negative (units unknown) (unknown) (unknown) (no date) (unknown) (unknown) Ur Phencyclidine Scrn (units unknown) (unknown) (unknown) (no date) (unknown) (unknown) Ur Squamous Epith Cells 1-5 /hpf (units unknown) (unknown) (unknown) (no date) (unknown) (unknown) Ur Squamous Epith Cells (units unknown) (unknown) (unknown) (no date) (unknown) (unknown) Urine Bacteria Many (>30) H (units unknown) (unknown) (unknown) (no date) (unknown) (unknown) Urine Bacteria (units unknown) (unknown) (unknown) (no date) (unknown) (unknown) Urine Cocaine Screen Negative (units unknown) (unknown) (unknown) (no date) (unknown) (unknown) Urine Cocaine Screen (units unknown) (unknown) (unknown) (no date) (unknown) (unknown) Urine Methadone Screen Negative (units unknown) (unknown) (unknown) (no date) (unknown) (unknown) Urine Methadone Screen (units unknown) (unknown) (unknown) (no date) (unknown) (unknown) Urine RBC 1-5/hpf (units unknown) (unknown) (unknown) (no date) (unknown) (unknown) Urine RBC (units unknown) (unknown) (unknown) (no date) (unknown) (unknown) Urine WBC 1-5/hpf (units unknown) (unknown) (unknown) (no date) (unknown) (unknown) Urine WBC (units unknown) (unknown) (unknown) (no date) (unknown) (unknown) Visit Medications (administered) (units unknown) (unknown) (unknown) (no date) (unknown) (unknown) Vital Signs (units unknown) (unknown) (unknown) (no date) (unknown) (unknown) WBC 3.3 L (units unknown) (unknown) (unknown) (no date) (unknown) (unknown) WBC (units unknown) (unknown) (unknown) (no date) (unknown) (unknown) [Embedded Image Not Available] (units unknown) (unknown) (unknown) (no date) (unknown) (unknown) [Rx Confirmed 07/03/20] (units unknown) (unknown) (unknown) (no date) (unknown) (unknown) [Rx] (units unknown) (unknown) (unknown) (no date) (unknown) (unknown) acetaminophen 325 mg tablet (Tylenol) 325 mg PO Q6H PRN pain #20 tabs 02/05/20 (units unknown) (unknown) (unknown) (no date) (unknown) (unknown) alcohol intake: former (units unknown) (unknown) (unknown) (no date) (unknown) (unknown) and hematocrit are 11.5 and 35.3 respectively, glucose is 111, calcium 8.0, AST (units unknown) (unknown) (unknown) (no date) (unknown) (unknown) as 750 cc of vodka every day. She has had several visits to ER department in (units unknown) (unknown) (unknown) (no date) (unknown) (unknown) blood pressure 93/54 , heart rate 119, respiratory rate 18, oxygen saturation of (units unknown) (unknown) (unknown) (no date) (unknown) (unknown) caps 02/05/20 [Rx Confirmed 07/03/20] (units unknown) (unknown) (unknown) (no date) (unknown) (unknown) current occupational exposures/hazards: Yes (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 with Pandemic ) (units unknown) (unknown) (unknown) (no date) (unknown) (unknown) cystitis without hematuria (units unknown) (unknown) (unknown) (no date) (unknown) (unknown) dexmedeTOMIDine in 0.9 % NaCL 400 mcg in 100 mls @ 2.495 mls/hr 07/13/22 11:15 (units unknown) (unknown) (unknown) (no date) (unknown) (unknown) diphenhydramine HCl 25 mg capsule (Benadryl) 25 mg PO BEDTIME PRN insomnia #20 (units unknown) (unknown) (unknown) (no date) (unknown) (unknown) docusate sodium 100 mg capsule (Colace) 100 mg PO BID #30 caps (units unknown) (unknown) (unknown) (no date) (unknown) (unknown) education level: college 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 She is afebrile, (units unknown) (unknown) (unknown) (no date) (unknown) (unknown) level in 300s. Today , she was noted to be severely agitated and restless, (units unknown) (unknown) (unknown) (no date) (unknown) (unknown) marital status: (units unknown) (unknown) (unknown) (no date) (unknown) (unknown) number of children: 1 (units unknown) (unknown) (unknown) (no date) (unknown) (unknown) occupational status: employed (units unknown) (unknown) (unknown) (no date) (unknown) (unknown) ondansetron 4 mg disintegrating tablet 4 mg PO Q6H PRN nausea and vomiting #14 (units unknown) (unknown) (unknown) (no date) (unknown) (unknown) ondansetron 4 mg disintegrating tablet 4 mg PO Q8H PRN nausea and vomiting #20 (units unknown) (unknown) (unknown) (no date) (unknown) (unknown) ondansetron 4 mg disintegrating tablet 4 mg PO Q8H PRN nausea and vomiting #30 (units unknown) (unknown) (unknown) (no date) (unknown) (unknown) prenat.vits,otis,min- i thang-folic 1 tab PO DAILY 12/30/19 [History Confirmed (units unknown) (unknown) (unknown) (no date) (unknown) (unknown) presented to ER asking for help with rehab but she was deemed to be medically (units unknown) (unknown) (unknown) (no date) (unknown) (unknown) received phenobarbital 130 mg IV x1, Librium 50 mg p.o. x1, and Ativan 6 mg IV (units unknown) (unknown) (unknown) (no date) (unknown) (unknown) relapsed due to a divorce with her . She states that she drinks as much (units unknown) (unknown) (unknown) (no date) (unknown) (unknown) second hand exposure : No (growing up as a child - not currently) (units unknown) (unknown) (unknown) (no date) (unknown) (unknown) special renee needs: No (units unknown) (unknown) (unknown) (no date) (unknown) (unknown) substance use type: does not use (units unknown) (unknown) (unknown) (no date) (unknown) (unknown) tabs 06/12/22 [Rx] (units unknown) (unknown) (unknown) (no date) (unknown) (unknown) tabs 01/01/20 [Rx Confirmed 07/03/20] (units unknown) (unknown) (unknown) (no date) (unknown) (unknown) tabs 02/05/20 [Rx Confirmed 07/03/20] (units unknown) (unknown) (unknown) (no date) (unknown) (unknown) to ED with acute alcohol intoxication with symptoms of alcohol withdrawal. (units unknown) (unknown) (unknown) (no date) (unknown) (unknown) today; this time is exclusive of procedural time. (units unknown) (unknown) (unknown) (no date) (unknown) (unknown) tramadol 50 mg table t 50 mg PO Q6H PRN pain #10 tabs 06/12/22 [Rx] (units unknown) (unknown) (unknown) (no date) (unknown) (unknown) unstable for transfe r to rehab. Her CIWA score in the ED was as high as 20. (units unknown) (unknown) (unknown) (no date) (unknown) (unknown) x1 in the ED. She is now admitted to ICU on Precedex drip. (units unknown) (unknown) Result panel [id number] (unknown) (no date) (unknown) (unknown) (no value) (units unknown) (unknown) (unknown) (no date) (unknown) (unknown) # CODE STATUS: Full code (units unknown) (unknown) (unknown) (no date) (unknown) (unknown) # Disposition: Admit to ICU. May downgrade to [facility] telemetry floor if CIWA (units unknown) (unknown) (unknown) (no date) (unknown) (unknown) # FEN: Regular diet. C/w IVF (D5 1/2 NS@100cc/hr). Aggressively replace Mg, K (units unknown) (unknown) (unknown) (no date) (unknown) (unknown) # Glucose: Fairly controlled. BG goal 120-180 (units unknown) (unknown) (unknown) (no date) (unknown) (unknown) # Lines/tubes: PIV (units unknown) (unknown) (unknown) (no date) (unknown) (unknown) # Prophylaxis: Lovenox 40 mg subcu for DVT prophylaxis, Pepcid for stress ulcer (units unknown) (unknown) (unknown) (no date) (unknown) (unknown) (1) Alcohol withdrawal delirium, acute, hyperactive: (units unknown) (unknown) (unknown) (no date) (unknown) (unknown) (2) Alcohol use disorder: (units unknown) (unknown) (unknown) (no date) (unknown) (unknown) (3) Acute cystitis: (units unknown) (unknown) (unknown) (no date) (unknown) (unknown) (past 8 hours): (units unknown) (unknown) (unknown) (no date) (unknown) (unknown) - Agree with rest of the management per primary team. D/w Primary hospitalist. (units unknown) (unknown) (unknown) (no date) (unknown) (unknown) - C/w aspiration and seizure precautions, Currently NPO due to severe (units unknown) (unknown) (unknown) (no date) (unknown) (unknown) - Consult social sciences professor to arrange for appropriate referral for detox program. (units unknown) (unknown) (unknown) (no date) (unknown) (unknown) - Continue IV Ativan 4-10 mg every 15 min PRN with goal to keep CIWA <8 per (units unknown) (unknown) (unknown) (no date) (unknown) (unknown) - Continue IV antibiotics x 3 days. Follow up and adjust antibiotics according (units unknown) (unknown) (unknown) (no date) (unknown) (unknown) - Continue alcohol withdrawal protocol including monitoring by CIWA score. C/w (units unknown) (unknown) (unknown) (no date) (unknown) (unknown) - Has relapsed and falied rehab. Consult social sciences professor to arrange for (units unknown) (unknown) (unknown) (no date) (unknown) (unknown) - If unable to keep CIWA less than 12, may use phenobarbital 130 mg IV/IM as (units unknown) (unknown) (unknown) (no date) (unknown) (unknown) - Order US of abdome n to evaluate for liver cirrhosis. (units unknown) (unknown) (unknown) (no date) (unknown) (unknown) - Received thiamine 100 mg IV, total 6 mg of Ativan IV, Librium 50 mg PO, and (units unknown) (unknown) (unknown) (no date) (unknown) (unknown) - She is able to protect his airway, does not need endotracheal intubation at (units unknown) (unknown) (unknown) (no date) (unknown) (unknown) - Start Librium 50 m g PO QID if and when able to tolerate PO meds. (units unknown) (unknown) (unknown) (no date) (unknown) (unknown) - Still has room to administer more BZPs and phenobarbital. 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 with (units unknown) (unknown) (unknown) (no date) (unknown) (unknown) 0.2 MCG/KG/HR (units unknown) (unknown) (unknown) (no date) (unknown) (unknown) [id number] (units unknown) (unknown) (unknown) (no date) (unknown) (unknown) 07/03/20] (units unknown) (unknown) (unknown) (no date) (unknown) (unknown) 07/12/22 07/12/22 07/12/22 (units unknown) (unknown) (unknown) (no date) (unknown) (unknown) 07/13/22 07/13/22 (units unknown) (unknown) (unknown) (no date) (unknown) (unknown) 07/13/22 08:50 (units unknown) (unknown) (unknown) (no date) (unknown) (unknown) 07/13/22 11:13 (units unknown) (unknown) (unknown) (no date) (unknown) (unknown) 07/13/22 (units unknown) (unknown) (unknown) (no date) (unknown) (unknown) 04:00 07/13/22 (units unknown) (unknown) (unknown) (no date) (unknown) (unknown) 04:30 07/13/22 (units unknown) (unknown) (unknown) (no date) (unknown) (unknown) 05:00 (units unknown) (unknown) (unknown) (no date) (unknown) (unknown) 05:30 07/13/22 (units unknown) (unknown) (unknown) (no date) (unknown) (unknown) 05:54 07/13/22 (units unknown) (unknown) (unknown) (no date) (unknown) (unknown) 05:54 (units unknown) (unknown) (unknown) (no date) (unknown) (unknown) 06:00 07/13/22 (units unknown) (unknown) (unknown) (no date) (unknown) (unknown) 06:39 (units unknown) (unknown) (unknown) (no date) (unknown) (unknown) 06:55 07/13/22 (units unknown) (unknown) (unknown) (no date) (unknown) (unknown) 07:04 07/13/22 (units unknown) (unknown) (unknown) (no date) (unknown) (unknown) 07:04 (units unknown) (unknown) (unknown) (no date) (unknown) (unknown) 07:33 07/13/22 (units unknown) (unknown) (unknown) (no date) (unknown) (unknown) 07:34 07/13/22 (units unknown) (unknown) (unknown) (no date) (unknown) (unknown) 07:34 (units unknown) (unknown) (unknown) (no date) (unknown) (unknown) 08:00 07/13/22 (units unknown) (unknown) (unknown) (no date) (unknown) (unknown) 08:33 (units unknown) (unknown) (unknown) (no date) (unknown) (unknown) 08:50 08:50 (units unknown) (unknown) (unknown) (no date) (unknown) (unknown) 02/05/20 [Rx Confirmed 07/03/20] (units unknown) (unknown) (unknown) (no date) (unknown) (unknown) 09:00 07/13/22 (units unknown) (unknown) (unknown) (no date) (unknown) (unknown) 09:46 (units unknown) (unknown) (unknown) (no date) (unknown) (unknown) 09:47 07/13/22 (units unknown) (unknown) (unknown) (no date) (unknown) (unknown) 16:32 16:32 16:32 (units unknown) (unknown) (unknown) (no date) (unknown) (unknown) 19:15 19:15 19:15 (units unknown) (unknown) (unknown) (no date) (unknown) (unknown) 60 mg IV BID scheduled. (units unknown) (unknown) (unknown) (no date) (unknown) (unknown) 67, urinalysis indicated many bacteria. As per the bedside nurse, patient (units unknown) (unknown) (unknown) (no date) (unknown) (unknown) 97% on room air. She weighs 49.8 kg with a BMI of 20.1. WBC is 3.3, hemoglobin (units unknown) (unknown) (unknown) (no date) (unknown) (unknown) ALT 19 (units unknown) (unknown) (unknown) (no date) (unknown) (unknown) ALT 21 (units unknown) (unknown) (unknown) (no date) (unknown) (unknown) ALT (units unknown) (unknown) (unknown) (no date) (unknown) (unknown) AST 52 H (units unknown) (unknown) (unknown) (no date) (unknown) (unknown) AST 67 H (units unknown) (unknown) (unknown) (no date) (unknown) (unknown) AST (units unknown) (unknown) (unknown) (no date) (unknown) (unknown) Acetaminophen < 10 (units unknown) (unknown) (unknown) (no date) (unknown) (unknown) Acetaminophen (units unknown) (unknown) (unknown) (no date) (unknown) (unknown) Administration (units unknown) (unknown) (unknown) (no date) (unknown) (unknown) Age/Sex: 31 / F (units unknown) (unknown) (unknown) (no date) (unknown) (unknown) Albumin 3.5 (units unknown) (unknown) (unknown) (no date) (unknown) (unknown) Albumin 4.3 (units unknown) (unknown) (unknown) (no date) (unknown) (unknown) Albumin (units unknown) (unknown) (unknown) (no date) (unknown) (unknown) Albumin/Globulin Ratio 1.3 (units unknown) (unknown) (unknown) (no date) (unknown) (unknown) Albumin/Globulin Ratio 1.4 (units unknown) (unknown) (unknown) (no date) (unknown) (unknown) Albumin/Globulin Ratio (units unknown) (unknown) (unknown) (no date) (unknown) (unknown) Alcohol Withdrawal (units unknown) (unknown) (unknown) (no date) (unknown) (unknown) Alcohol withdrawal delirium, acute, hyperactive (units unknown) (unknown) (unknown) (no date) (unknown) (unknown) Alcoholism (units unknown) (unknown) (unknown) (no date) (unknown) (unknown) Alkaline Phosphatase 75 (units unknown) (unknown) (unknown) (no date) (unknown) (unknown) Alkaline Phosphatase 98 (units unknown) (unknown) (unknown) (no date) (unknown) (unknown) Alkaline Phosphatase (units unknown) (unknown) (unknown) (no date) (unknown) (unknown) Anemia (-2018) (units unknown) (unknown) (unknown) (no date) (unknown) (unknown) Assessment + Plan (units unknown) (unknown) (unknown) (no date) (unknown) (unknown) Assessment and plan (units unknown) (unknown) (unknown) (no date) (unknown) (unknown) Awake, oriented x 3, severely confused, intermittently agitated/restless but (units unknown) (unknown) (unknown) (no date) (unknown) (unknown) BUN 11 (units unknown) (unknown) (unknown) (no date) (unknown) (unknown) BUN 9 (units unknown) (unknown) (unknown) (no date) (unknown) (unknown) BUN (units unknown) (unknown) (unknown) (no date) (unknown) (unknown) BUN/Creatinine Ratio 11.0 (units unknown) (unknown) (unknown) (no date) (unknown) (unknown) BUN/Creatinine Ratio 16.4 (units unknown) (unknown) (unknown) (no date) (unknown) (unknown) BUN/Creatinine Ratio (units unknown) (unknown) (unknown) (no date) (unknown) (unknown) BZPs + phenobarb. Would discourage the use of Precedex solely for the treatment (units unknown) (unknown) (unknown) (no date) (unknown) (unknown) Baso # (Auto) 0 (units unknown) (unknown) (unknown) (no date) (unknown) (unknown) Baso # (Auto) (units unknown) (unknown) (unknown) (no date) (unknown) (unknown) Baso % (Auto) 0.7 (units unknown) (unknown) (unknown) (no date) (unknown) (unknown) Baso % (Auto) 0.9 (units unknown) (unknown) (unknown) (no date) (unknown) (unknown) Baso % (Auto) (units unknown) (unknown) (unknown) (no date) (unknown) (unknown) Blood Pressure 104/5 9 L 123/58 L (units unknown) (unknown) (unknown) (no date) (unknown) (unknown) Blood Pressure 111/5 9 L (units unknown) (unknown) (unknown) (no date) (unknown) (unknown) Blood Pressure 116/7 5 116/65 (units unknown) (unknown) (unknown) (no date) (unknown) (unknown) Blood Pressure 93/54 L (units unknown) (unknown) (unknown) (no date) (unknown) (unknown) Blood Pressure 99/52 L (units unknown) (unknown) (unknown) (no date) (unknown) (unknown) Blood Pressure (units unknown) (unknown) (unknown) (no date) (unknown) (unknown) CIWAPRN PRN Administration (units unknown) (unknown) (unknown) (no date) (unknown) (unknown) CONT SANDY Infusion (units unknown) (unknown) (unknown) (no date) (unknown) (unknown) Calcium 8.0 L (units unknown) (unknown) (unknown) (no date) (unknown) (unknown) Calcium 8.1 L (units unknown) (unknown) (unknown) (no date) (unknown) (unknown) Calcium (units unknown) (unknown) (unknown) (no date) (unknown) (unknown) Carbon Dioxide 23 (units unknown) (unknown) (unknown) (no date) (unknown) (unknown) Carbon Dioxide 28 (units unknown) (unknown) (unknown) (no date) (unknown) (unknown) Carbon Dioxide (units unknown) (unknown) (unknown) (no date) (unknown) (unknown) Cardio (units unknown) (unknown) (unknown) (no date) (unknown) (unknown) Chest (units unknown) (unknown) (unknown) (no date) (unknown) (unknown) Chief complaint: Acute alcohol withdrawal (units unknown) (unknown) (unknown) (no date) (unknown) (unknown) Chlordiazepoxide 25 Mg Capsule PO 50 mg (units unknown) (unknown) (unknown) (no date) (unknown) (unknown) Chlordiazepoxide HCl 50 mg 07/13/22 09:10 07/13/22 09:45 (units unknown) (unknown) (unknown) (no date) (unknown) (unknown) Chloride 100 (units unknown) (unknown) (unknown) (no date) (unknown) (unknown) Chloride 104 (units unknown) (unknown) (unknown) (no date) (unknown) (unknown) Chloride (units unknown) (unknown) (unknown) (no date) (unknown) (unknown) Cipro IV Infused (units unknown) (unknown) (unknown) (no date) (unknown) (unknown) Ciprofloxacin 400 mg in 200 mls @ 200 mls/hr 07/13/22 08:00 07/13/22 09:21 (units unknown) (unknown) (unknown) (no date) (unknown) (unknown) Consent obtained for tele-bioinformatics technician care: Yes (units unknown) (unknown) (unknown) (no date) (unknown) (unknown) Const (units unknown) (unknown) (unknown) (no date) (unknown) (unknown) Consult details (units unknown) (unknown) (unknown) (no date) (unknown) (unknown) Creatinine 0.67 (units unknown) (unknown) (unknown) (no date) (unknown) (unknown) Creatinine 0.82 (units unknown) (unknown) (unknown) (no date) (unknown) (unknown) Creatinine (units unknown) (unknown) (unknown) (no date) (unknown) (unknown) Critical Care time: (units unknown) (unknown) (unknown) (no date) (unknown) (unknown) Current Medications (units unknown) (unknown) (unknown) (no date) (unknown) (unknown) DAILY SANDY Administration (units unknown) (unknown) (unknown) (no date) (unknown) (unknown) : 1990 Acct:[id number] (units unknown) (unknown) (unknown) (no date) (unknown) (unknown) Date of Service: 07/13/22 (units unknown) (unknown) (unknown) (no date) (unknown) (unknown) Discussed the plan o f care with bedside RN, ICU charge nurse and hospitalist (units unknown) (unknown) (unknown) (no date) (unknown) (unknown) Enoxaparin 40 Mg/0.4 Ml Syringe SUBCUT 40 mg (units unknown) (unknown) (unknown) (no date) (unknown) (unknown) Enoxaparin Sodium 40 mg 07/13/22 09:00 07/13/22 09:28 (units unknown) (unknown) (unknown) (no date) (unknown) (unknown) Eos # (Auto) 0 (units unknown) (unknown) (unknown) (no date) (unknown) (unknown) Eos # (Auto) (units unknown) (unknown) (unknown) (no date) (unknown) (unknown) Eos % (Auto) 0.3 L (units unknown) (unknown) (unknown) (no date) (unknown) (unknown) Eos % (Auto) (units unknown) (unknown) (unknown) (no date) (unknown) (unknown) Estimated GFR > 60 (units unknown) (unknown) (unknown) (no date) (unknown) (unknown) Estimated GFR (units unknown) (unknown) (unknown) (no date) (unknown) (unknown) Ethyl Alcohol 338 H (units unknown) (unknown) (unknown) (no date) (unknown) (unknown) Ethyl Alcohol (units unknown) (unknown) (unknown) (no date) (unknown) (unknown) Exam (units unknown) (unknown) (unknown) (no date) (unknown) (unknown) Family History (units unknown) (unknown) (unknown) (no date) (unknown) (unknown) Family/Other Alcoholism (units unknown) (unknown) (unknown) (no date) (unknown) (unknown) Family/Other Diabete s mellitus (units unknown) (unknown) (unknown) (no date) (unknown) (unknown) Father Alcoholism (units unknown) (unknown) (unknown) (no date) (unknown) (unknown) Folic Acid 1 Mg Tablet PO 1 mg (units unknown) (unknown) (unknown) (no date) (unknown) (unknown) Folic Acid 1 mg 07/13/22 09:00 07/13/22 09:27 (units unknown) (unknown) (unknown) (no date) (unknown) (unknown) Free T4 0.93 (units unknown) (unknown) (unknown) (no date) (unknown) (unknown) Free T4 (units unknown) (unknown) (unknown) (no date) (unknown) (unknown) Generic Name Dose Route Start Last Admin (units unknown) (unknown) (unknown) (no date) (unknown) (unknown) Globulin 2.7 (units unknown) (unknown) (unknown) (no date) (unknown) (unknown) Globulin 3.0 (units unknown) (unknown) (unknown) (no date) (unknown) (unknown) Globulin (units unknown) (unknown) (unknown) (no date) (unknown) (unknown) Glucose 111 H (units unknown) (unknown) (unknown) (no date) (unknown) (unknown) Glucose 138 H (units unknown) (unknown) (unknown) (no date) (unknown) (unknown) Glucose (units unknown) (unknown) (unknown) (no date) (unknown) (unknown) Grandfather Smoker (units unknown) (unknown) (unknown) (no date) (unknown) (unknown) Grandfather Unknown whether patient has any health problems (units unknown) (unknown) (unknown) (no date) (unknown) (unknown) Grandmother Diabetes mellitus (units unknown) (unknown) (unknown) (no date) (unknown) (unknown) Grandmother Hypoglycemia (units unknown) (unknown) (unknown) (no date) (unknown) (unknown) H/O dilation and curettage (-12/14/16) (units unknown) (unknown) (unknown) (no date) (unknown) (unknown) H/O wisdom tooth extraction () (units unknown) (unknown) (unknown) (no date) (unknown) (unknown) Hct 26.8 L (units unknown) (unknown) (unknown) (no date) (unknown) (unknown) Hct 35.3 L (units unknown) (unknown) (unknown) (no date) (unknown) (unknown) Hct (units unknown) (unknown) (unknown) (no date) (unknown) (unknown) Hematuria presence: without hematuria Qualified Code(s): N30.00 - Acute (units unknown) (unknown) (unknown) (no date) (unknown) (unknown) Hgb 11.5 L (units unknown) (unknown) (unknown) (no date) (unknown) (unknown) Hgb 9.1 L (units unknown) (unknown) (unknown) (no date) (unknown) (unknown) Hgb (units unknown) (unknown) (unknown) (no date) (unknown) (unknown) History of Present Illness (units unknown) (unknown) (unknown) (no date) (unknown) (unknown) Home Medications (units unknown) (unknown) (unknown) (no date) (unknown) (unknown) I spent a total of [30] minutes of critical care time on this patient's care (units unknown) (unknown) (unknown) (no date) (unknown) (unknown) In Sinus Tachycardia (units unknown) (unknown) (unknown) (no date) (unknown) (unknown) 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 (units unknown) (unknown) (unknown) (no date) (unknown) (unknown) Insomnia (units unknown) (unknown) (unknown) (no date) (unknown) (unknown) [address] [address] (units unknown) (unknown) (unknown) (no date) (unknown) (unknown) May 2022 for similar symptoms including most recent visit with blood alcohol (units unknown) (unknown) (unknown) (no date) (unknown) (unknown) Laboratory Results - last 24 hr (units unknown) (unknown) (unknown) (no date) (unknown) (unknown) Labs (units unknown) (unknown) (unknown) (no date) (unknown) (unknown) Labs: (units unknown) (unknown) (unknown) (no date) (unknown) (unknown) Lorazepam 0 mg 07/13/22 06:40 07/13/22 10:15 (units unknown) (unknown) (unknown) (no date) (unknown) (unknown) Lorazepam 2 Mg/Ml In j IV 2 mg (units unknown) (unknown) (unknown) (no date) (unknown) (unknown) Lymph # (Auto) 1200 (units unknown) (unknown) (unknown) (no date) (unknown) (unknown) Lymph # (Auto) 1700 (units unknown) (unknown) (unknown) (no date) (unknown) (unknown) Lymph # (Auto) (units unknown) (unknown) (unknown) (no date) (unknown) (unknown) Lymph % (Auto) 36.8 (units unknown) (unknown) (unknown) (no date) (unknown) (unknown) Lymph % (Auto) 50.6 H (units unknown) (unknown) (unknown) (no date) (unknown) (unknown) Lymph % (Auto) (units unknown) (unknown) (unknown) (no date) (unknown) (unknown) MCH 26.0 (units unknown) (unknown) (unknown) (no date) (unknown) (unknown) MCH 26.3 (units unknown) (unknown) (unknown) (no date) (unknown) (unknown) MCH (units unknown) (unknown) (unknown) (no date) (unknown) (unknown) MCHC 32.7 (units unknown) (unknown) (unknown) (no date) (unknown) (unknown) MCHC 34.0 (units unknown) (unknown) (unknown) (no date) (unknown) (unknown) MCHC (units unknown) (unknown) (unknown) (no date) (unknown) (unknown) MCV 77.5 L (units unknown) (unknown) (unknown) (no date) (unknown) (unknown) MCV 79.5 L (units unknown) (unknown) (unknown) (no date) (unknown) (unknown) MCV (units unknown) (unknown) (unknown) (no date) (unknown) (unknown) MVI + Folate + Thiamine + pyridoxine. (units unknown) (unknown) (unknown) (no date) (unknown) (unknown) Magnesium 1.4 L (units unknown) (unknown) (unknown) (no date) (unknown) (unknown) Magnesium (units unknown) (unknown) (unknown) (no date) (unknown) (unknown) Medical History (Updated 07/13/22 @ 11:47 by Gerardo Mccormick MD) (units unknown) (unknown) (unknown) (no date) (unknown) (unknown) Medications: (units unknown) (unknown) (unknown) (no date) (unknown) (unknown) Menometrorrhagia (units unknown) (unknown) (unknown) (no date) (unknown) (unknown) [place] # (Auto) 100 (units unknown) (unknown) (unknown) (no date) (unknown) (unknown) [place] # (Auto) 200 (units unknown) (unknown) (unknown) (no date) (unknown) (unknown) [place] # (Auto) (units unknown) (unknown) (unknown) (no date) (unknown) (unknown) [place] % (Auto) 2.7 L (units unknown) (unknown) (unknown) (no date) (unknown) (unknown) [place] % (Auto) 6.4 (units unknown) (unknown) (unknown) (no date) (unknown) (unknown) [place] % (Auto) (units unknown) (unknown) (unknown) (no date) (unknown) (unknown) Mother Diabetes mellitus (units unknown) (unknown) (unknown) (no date) (unknown) (unknown) Moving all 4 extremities spontaneously (units unknown) (unknown) (unknown) (no date) (unknown) (unknown) Multivitamin 1 Table t PO 1 tab (units unknown) (unknown) (unknown) (no date) (unknown) (unknown) Multivitamins 1 tab 07/13/22 09:00 07/13/22 09:27 (units unknown) (unknown) (unknown) (no date) (unknown) (unknown) Narrative: (units unknown) (unknown) (unknown) (no date) (unknown) (unknown) Neuro (units unknown) (unknown) (unknown) (no date) (unknown) (unknown) Neut # (Auto) 1500 (units unknown) (unknown) (unknown) (no date) (unknown) (unknown) Neut # (Auto) 1800 (units unknown) (unknown) (unknown) (no date) (unknown) (unknown) Neut # (Auto) (units unknown) (unknown) (unknown) (no date) (unknown) (unknown) Neut % (Auto) 45.5 L (units unknown) (unknown) (unknown) (no date) (unknown) (unknown) Neut % (Auto) 55.8 (units unknown) (unknown) (unknown) (no date) (unknown) (unknown) Neut % (Auto) (units unknown) (unknown) (unknown) (no date) (unknown) (unknown) Nicotine 14 Patch TO P 14 mg (units unknown) (unknown) (unknown) (no date) (unknown) (unknown) Nicotine 14 mg 07/13/22 09:00 07/13/22 09:28 (units unknown) (unknown) (unknown) (no date) (unknown) (unknown) Normal Saline 0.9% I V 0 mls/hr (units unknown) (unknown) (unknown) (no date) (unknown) (unknown) Not using accessory muscle use (units unknown) (unknown) (unknown) (no date) (unknown) (unknown) Obesity (units unknown) (unknown) (unknown) (no date) (unknown) (unknown) Objective (units unknown) (unknown) (unknown) (no date) (unknown) (unknown) 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: RN (units unknown) (unknown) (unknown) (no date) (unknown) (unknown) Other: (units unknown) (unknown) (unknown) (no date) (unknown) (unknown) Overweight (units unknown) (unknown) (unknown) (no date) (unknown) (unknown) Oxygen Delivery Method Room Air (units unknown) (unknown) (unknown) (no date) (unknown) (unknown) PFSH (units unknown) (unknown) (unknown) (no date) (unknown) (unknown) Pantoprazole 40 Mg Vial IV 40 mg (units unknown) (unknown) (unknown) (no date) (unknown) (unknown) Pantoprazole Sodium 40 mg 07/13/22 09:00 07/13/22 09:27 (units unknown) (unknown) (unknown) (no date) (unknown) (unknown) Patient Location: ICU (units unknown) (unknown) (unknown) (no date) (unknown) (unknown) Patient stated that she used to be sober for about 18 months in the past but had (units unknown) (unknown) (unknown) (no date) (unknown) (unknown) Patient: Sarah Connors MR#: M (units unknown) (unknown) (unknown) (no date) (unknown) (unknown) Plan: (units unknown) (unknown) (unknown) (no date) (unknown) (unknown) Plt Count 129 L (units unknown) (unknown) (unknown) (no date) (unknown) (unknown) Plt Count 226 (units unknown) (unknown) (unknown) (no date) (unknown) (unknown) Plt Count (units unknown) (unknown) (unknown) (no date) (unknown) (unknown) Potassium 3.7 (units unknown) (unknown) (unknown) (no date) (unknown) (unknown) Potassium 3.9 (units unknown) (unknown) (unknown) (no date) (unknown) (unknown) Potassium (units unknown) (unknown) (unknown) (no date) (unknown) (unknown) Precedex IV 0.2 mcg/kg/hr (units unknown) (unknown) (unknown) (no date) (unknown) (unknown) Problem details: (units unknown) (unknown) (unknown) (no date) (unknown) (unknown) Protocol (units unknown) (unknown) (unknown) (no date) (unknown) (unknown) Provider location (State): [place] (units unknown) (unknown) (unknown) (no date) (unknown) (unknown) Provider: Gerardo Mccormick (units unknown) (unknown) (unknown) (no date) (unknown) (unknown) Pulse Oximetry 100 100 100 (units unknown) (unknown) (unknown) (no date) (unknown) (unknown) Pulse Oximetry 100 98 (units unknown) (unknown) (unknown) (no date) (unknown) (unknown) Pulse Oximetry 100 (units unknown) (unknown) (unknown) (no date) (unknown) (unknown) Pulse Oximetry 97 100 (units unknown) (unknown) (unknown) (no date) (unknown) (unknown) Pulse Oximetry 97 98 98 (units unknown) (unknown) (unknown) (no date) (unknown) (unknown) Pulse Oximetry 97 99 (units unknown) (unknown) (unknown) (no date) (unknown) (unknown) Pulse Oximetry 98 98 (units unknown) (unknown) (unknown) (no date) (unknown) (unknown) Pulse Oximetry 99 (units unknown) (unknown) (unknown) (no date) (unknown) (unknown) Pulse Rate 112 H 125 H 75 (units unknown) (unknown) (unknown) (no date) (unknown) (unknown) Pulse Rate 112 H (units unknown) (unknown) (unknown) (no date) (unknown) (unknown) Pulse Rate 119 H 111 H (units unknown) (unknown) (unknown) (no date) (unknown) (unknown) Pulse Rate 120 H 122 H (units unknown) (unknown) (unknown) (no date) (unknown) (unknown) Pulse Rate 122 H 113 H (units unknown) (unknown) (unknown) (no date) (unknown) (unknown) Pulse Rate 77 98 H (units unknown) (unknown) (unknown) (no date) (unknown) (unknown) Pulse Rate 97 H (units unknown) (unknown) (unknown) (no date) (unknown) (unknown) Pulse Rate 98 H 101 H 109 H (units unknown) (unknown) (unknown) (no date) (unknown) (unknown) Q12H SANDY Infusion (units unknown) (unknown) (unknown) (no date) (unknown) (unknown) Q6H SANDY Administration (units unknown) (unknown) (unknown) (no date) (unknown) (unknown) Qualifiers: (units unknown) (unknown) (unknown) (no date) (unknown) (unknown) RBC 3.45 L (units unknown) (unknown) (unknown) (no date) (unknown) (unknown) RBC 4.44 (units unknown) (unknown) (unknown) (no date) (unknown) (unknown) RBC (units unknown) (unknown) (unknown) (no date) (unknown) (unknown) RDW 17.3 H (units unknown) (unknown) (unknown) (no date) (unknown) (unknown) RDW (units unknown) (unknown) (unknown) (no date) (unknown) (unknown) Respiratory Rate 20 (units unknown) (unknown) (unknown) (no date) (unknown) (unknown) Respiratory Rate 22 (units unknown) (unknown) (unknown) (no date) (unknown) (unknown) Respiratory Rate (units unknown) (unknown) (unknown) (no date) (unknown) (unknown) S/P myringotomy with insertion of tube (units unknown) (unknown) (unknown) (no date) (unknown) (unknown) SARS-CoV-2 (PCR) Negative (units unknown) (unknown) (unknown) (no date) (unknown) (unknown) SARS-CoV-2 (PCR) (units unknown) (unknown) (unknown) (no date) (unknown) (unknown) (spontaneous vaginal delivery) (09/05/18) (units unknown) (unknown) (unknown) (no date) (unknown) (unknown) Salicylates < 1.0 (units unknown) (unknown) (unknown) (no date) (unknown) (unknown) Salicylates (units unknown) (unknown) (unknown) (no date) (unknown) (unknown) She was also found t o have UTI and was given a dose of oral cephalexin. Her (units unknown) (unknown) (unknown) (no date) (unknown) (unknown) Signed By: (units unknown) (unknown) (unknown) (no date) (unknown) (unknown) Smoker (units unknown) (unknown) (unknown) (no date) (unknown) (unknown) Smoking Status: Former smoker (units unknown) (unknown) (unknown) (no date) (unknown) (unknown) Social History (units unknown) (unknown) (unknown) (no date) (unknown) (unknown) Sodium 135 L (units unknown) (unknown) (unknown) (no date) (unknown) (unknown) Sodium 140 (units unknown) (unknown) (unknown) (no date) (unknown) (unknown) Sodium Chloride 1,00 0 mls @ 100 mls/hr 07/13/22 06:45 07/13/22 10:47 (units unknown) (unknown) (unknown) (no date) (unknown) (unknown) Sodium (units unknown) (unknown) (unknown) (no date) (unknown) (unknown) Status: Acute (units unknown) (unknown) (unknown) (no date) (unknown) (unknown) Surgical History (units unknown) (unknown) (unknown) (no date) (unknown) (unknown) TITRATE SANDY 2.495 mls/hr (units unknown) (unknown) (unknown) (no date) (unknown) (unknown) TSH 1.24 (units unknown) (unknown) (unknown) (no date) (unknown) (unknown) TSH (units unknown) (unknown) (unknown) (no date) (unknown) (unknown) 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 (units unknown) (unknown) (unknown) (no date) (unknown) (unknown) The patient has high probability of sudden, clinically significant (units unknown) (unknown) (unknown) (no date) (unknown) (unknown) Thiamine 100 Mg Tablet PO 07/16/22 09:01 100 mg (units unknown) (unknown) (unknown) (no date) (unknown) (unknown) Thiamine HCl 100 mg 07/13/22 09:00 07/13/22 09:27 (units unknown) (unknown) (unknown) (no date) (unknown) (unknown) This is a 31 years old female with history of alcohol use disorder who presented (units unknown) (unknown) (unknown) (no date) (unknown) (unknown) Time Spent With Patient (units unknown) (unknown) (unknown) (no date) (unknown) (unknown) Total Bilirubin 0.4 (units unknown) (unknown) (unknown) (no date) (unknown) (unknown) Total Bilirubin 0.8 (units unknown) (unknown) (unknown) (no date) (unknown) (unknown) Total Bilirubin (units unknown) (unknown) (unknown) (no date) (unknown) (unknown) Total Protein 6.2 L (units unknown) (unknown) (unknown) (no date) (unknown) (unknown) Total Protein 7.3 (units unknown) (unknown) (unknown) (no date) (unknown) (unknown) Total Protein (units unknown) (unknown) (unknown) (no date) (unknown) (unknown) Trade Name Frandyq PRN Reason Stop Dose Admin (units unknown) (unknown) (unknown) (no date) (unknown) (unknown) U Benzodiazepines Scrn Negative (units unknown) (unknown) (unknown) (no date) (unknown) (unknown) U Benzodiazepines Scrn (units unknown) (unknown) (unknown) (no date) (unknown) (unknown) U Marijuana (THC) Screen Negative (units unknown) (unknown) (unknown) (no date) (unknown) (unknown) U Marijuana (THC) Screen (units unknown) (unknown) (unknown) (no date) (unknown) (unknown) U Methamphetamines Scrn Negative (units unknown) (unknown) (unknown) (no date) (unknown) (unknown) U Methamphetamines Scrn (units unknown) (unknown) (unknown) (no date) (unknown) (unknown) U Opiates 300ng/mL cut Negative (units unknown) (unknown) (unknown) (no date) (unknown) (unknown) U Opiates 300ng/mL cut (units unknown) (unknown) (unknown) (no date) (unknown) (unknown) U Tricyclic Antidepress Negative (units unknown) (unknown) (unknown) (no date) (unknown) (unknown) U Tricyclic Antidepress (units unknown) (unknown) (unknown) (no date) (unknown) (unknown) Ur Amphetamines Screen Negative (units unknown) (unknown) (unknown) (no date) (unknown) (unknown) Ur Amphetamines Screen (units unknown) (unknown) (unknown) (no date) (unknown) (unknown) Ur Barbiturates Screen Negative (units unknown) (unknown) (unknown) (no date) (unknown) (unknown) Ur Barbiturates Screen (units unknown) (unknown) (unknown) (no date) (unknown) (unknown) Ur Culture Indicated ? Specimen cultured (units unknown) (unknown) (unknown) (no date) (unknown) (unknown) Ur Culture Indicated? (units unknown) (unknown) (unknown) (no date) (unknown) (unknown) Ur MDMA Scrn (Ecstasy) Negative (units unknown) (unknown) (unknown) (no date) (unknown) (unknown) Ur MDMA Scrn (Ecstasy) (units unknown) (unknown) (unknown) (no date) (unknown) (unknown) Ur Oxycodone Screen Negative (units unknown) (unknown) (unknown) (no date) (unknown) (unknown) Ur Oxycodone Screen (units unknown) (unknown) (unknown) (no date) (unknown) (unknown) Ur Phencyclidine Scr n Negative (units unknown) (unknown) (unknown) (no date) (unknown) (unknown) Ur Phencyclidine Scrn (units unknown) (unknown) (unknown) (no date) (unknown) (unknown) Ur Squamous Epith Cells 1-5 /hpf (units unknown) (unknown) (unknown) (no date) (unknown) (unknown) Ur Squamous Epith Cells (units unknown) (unknown) (unknown) (no date) (unknown) (unknown) Urine Bacteria Many (>30) H (units unknown) (unknown) (unknown) (no date) (unknown) (unknown) Urine Bacteria (units unknown) (unknown) (unknown) (no date) (unknown) (unknown) Urine Cocaine Screen Negative (units unknown) (unknown) (unknown) (no date) (unknown) (unknown) Urine Cocaine Screen (units unknown) (unknown) (unknown) (no date) (unknown) (unknown) Urine Methadone Screen Negative (units unknown) (unknown) (unknown) (no date) (unknown) (unknown) Urine Methadone Screen (units unknown) (unknown) (unknown) (no date) (unknown) (unknown) Urine RBC 1-5/hpf (units unknown) (unknown) (unknown) (no date) (unknown) (unknown) Urine RBC (units unknown) (unknown) (unknown) (no date) (unknown) (unknown) Urine WBC 1-5/hpf (units unknown) (unknown) (unknown) (no date) (unknown) (unknown) Urine WBC (units unknown) (unknown) (unknown) (no date) (unknown) (unknown) Visit Medications (administered) (units unknown) (unknown) (unknown) (no date) (unknown) (unknown) Vital Signs (units unknown) (unknown) (unknown) (no date) (unknown) (unknown) WBC 3.3 L (units unknown) (unknown) (unknown) (no date) (unknown) (unknown) WBC (units unknown) (unknown) (unknown) (no date) (unknown) (unknown) [Embedded Image Not Available] (units unknown) (unknown) (unknown) (no date) (unknown) (unknown) [Rx Confirmed 07/03/20] (units unknown) (unknown) (unknown) (no date) (unknown) (unknown) [Rx] (units unknown) (unknown) (unknown) (no date) (unknown) (unknown) acetaminophen 325 mg tablet (Tylenol) 325 mg PO Q6H PRN pain #20 tabs 02/05/20 (units unknown) (unknown) (unknown) (no date) (unknown) (unknown) alcohol intake: former (units unknown) (unknown) (unknown) (no date) (unknown) (unknown) and Phos. (units unknown) (unknown) (unknown) (no date) (unknown) (unknown) and hematocrit are 11.5 and 35.3 respectively, glucose is 111, calcium 8.0, AST (units unknown) (unknown) (unknown) (no date) (unknown) (unknown) appropriate referral for detox program. (units unknown) (unknown) (unknown) (no date) (unknown) (unknown) as 750 cc of vodka every day. She has had several visits to ER department in (units unknown) (unknown) (unknown) (no date) (unknown) (unknown) bedside RN. (units unknown) (unknown) (unknown) (no date) (unknown) (unknown) blood pressure 93/54 , heart rate 119, respiratory rate 18, oxygen saturation of (units unknown) (unknown) (unknown) (no date) (unknown) (unknown) caps 02/05/20 [Rx Confirmed 07/03/20] (units unknown) (unknown) (unknown) (no date) (unknown) (unknown) care minutes of my full attention on this patient's management and direct (units unknown) (unknown) (unknown) (no date) (unknown) (unknown) current occupational exposures/hazards: Yes (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 with Pandemic ) (units unknown) (unknown) (unknown) (no date) (unknown) (unknown) cystitis without hematuria (units unknown) (unknown) (unknown) (no date) (unknown) (unknown) decision making. Brian ferreira devoted to procedures I billed separately and is not (units unknown) (unknown) (unknown) (no date) (unknown) (unknown) deterioration, which requires urgent interventions. I managed life supporting (units unknown) (unknown) (unknown) (no date) (unknown) (unknown) dexmedeTOMIDine in 0.9 % NaCL 400 mcg in 100 mls @ 2.495 mls/hr 07/13/22 11:15 (units unknown) (unknown) (unknown) (no date) (unknown) (unknown) diphenhydramine HCl 25 mg capsule (Benadryl) 25 mg PO BEDTIME PRN insomnia #20 (units unknown) (unknown) (unknown) (no date) (unknown) (unknown) docusate sodium 100 mg capsule (Colace) 100 mg PO BID #30 caps (units unknown) (unknown) (unknown) (no date) (unknown) (unknown) education level: college 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 (units unknown) (unknown) (unknown) (no date) (unknown) (unknown) initial work-up was notable for blood alcohol level of 338. She is afebrile, (units unknown) (unknown) (unknown) (no date) (unknown) (unknown) interventions that required frequent physician assessment. I spent 35 critical (units unknown) (unknown) (unknown) (no date) (unknown) (unknown) level in 300s. Today , she was noted to be severely agitated and restless, (units unknown) (unknown) (unknown) (no date) (unknown) (unknown) marital status: (units unknown) (unknown) (unknown) (no date) (unknown) (unknown) nausea/vomiting (units unknown) (unknown) (unknown) (no date) (unknown) (unknown) needed (no more than 4 doses in 24 hours). (units unknown) (unknown) (unknown) (no date) (unknown) (unknown) number of children: 1 (units unknown) (unknown) (unknown) (no date) (unknown) (unknown) occupational status: employed (units unknown) (unknown) (unknown) (no date) (unknown) (unknown) of alcohol withdrawal. (units unknown) (unknown) (unknown) (no date) (unknown) (unknown) ondansetron 4 mg disintegrating tablet 4 mg PO Q6H PRN nausea and vomiting #14 (units unknown) (unknown) (unknown) (no date) (unknown) (unknown) ondansetron 4 mg disintegrating tablet 4 mg PO Q8H PRN nausea and vomiting #20 (units unknown) (unknown) (unknown) (no date) (unknown) (unknown) ondansetron 4 mg disintegrating tablet 4 mg PO Q8H PRN nausea and vomiting #30 (units unknown) (unknown) (unknown) (no date) (unknown) (unknown) patient care. Time I spent with family or surrogate(s) is included if the (units unknown) (unknown) (unknown) (no date) (unknown) (unknown) patient was incapabl e of providing information or participating in medical (units unknown) (unknown) (unknown) (no date) (unknown) (unknown) phenobarbital 130 mg IV so far with elevated CIWA score still between 12-20 per (units unknown) (unknown) (unknown) (no date) (unknown) (unknown) prenat.vits,otis,min- i thang-folic 1 tab PO DAILY 12/30/19 [History Confirmed (units unknown) (unknown) (unknown) (no date) (unknown) (unknown) presented to ER asking for help with rehab but she was deemed to be medically (units unknown) (unknown) (unknown) (no date) (unknown) (unknown) prophylaxis (units unknown) (unknown) (unknown) (no date) (unknown) (unknown) received phenobarbital 130 mg IV x1, Librium 50 mg p.o. x1, and Ativan 6 mg IV (units unknown) (unknown) (unknown) (no date) (unknown) (unknown) relapsed due to a divorce with her . She states that she drinks as much (units unknown) (unknown) (unknown) (no date) (unknown) (unknown) score remains less than 12 for at least 12 hours. (units unknown) (unknown) (unknown) (no date) (unknown) (unknown) second hand exposure : No (growing up as a child - not currently) (units unknown) (unknown) (unknown) (no date) (unknown) (unknown) special renee needs: No (units unknown) (unknown) (unknown) (no date) (unknown) (unknown) substance use type: does not use (units unknown) (unknown) (unknown) (no date) (unknown) (unknown) symptom triggered protocol. (units unknown) (unknown) (unknown) (no date) (unknown) (unknown) tabs 06/12/22 [Rx] (units unknown) (unknown) (unknown) (no date) (unknown) (unknown) tabs 01/01/20 [Rx Confirmed 07/03/20] (units unknown) (unknown) (unknown) (no date) (unknown) (unknown) tabs 02/05/20 [Rx Confirmed 07/03/20] (units unknown) (unknown) (unknown) (no date) (unknown) (unknown) team (units unknown) (unknown) (unknown) (no date) (unknown) (unknown) this time and remain s hemodynamically stable. (units unknown) (unknown) (unknown) (no date) (unknown) (unknown) to ED with acute alcohol intoxication with symptoms of alcohol withdrawal. (units unknown) (unknown) (unknown) (no date) (unknown) (unknown) to urine cultures. (units unknown) (unknown) (unknown) (no date) (unknown) (unknown) today; this time is exclusive of procedural time. (units unknown) (unknown) (unknown) (no date) (unknown) (unknown) tramadol 50 mg table t 50 mg PO Q6H PRN pain #10 tabs 06/12/22 [Rx] (units unknown) (unknown) (unknown) (no date) (unknown) (unknown) unstable for transfe r to rehab. Her CIWA score in the ED was as high as 20. (units unknown) (unknown) (unknown) (no date) (unknown) (unknown) x1 in the ED. She is now admitted to ICU on Precedex drip. (units unknown) (unknown) Result panel 2200 (unknown) (no date) (unknown) (unknown) (no value) (units unknown) (unknown) (unknown) (no date) (unknown) (unknown) # CODE STATUS: Full code (units unknown) (unknown) (unknown) (no date) (unknown) (unknown) # Disposition: Admit to ICU. May downgrade to [facility] telemetry floor if CIWA (units unknown) (unknown) (unknown) (no date) (unknown) (unknown) # FEN: Regular diet. C/w IVF (D5 1/2 NS@100cc/hr). Aggressively replace Mg, K (units unknown) (unknown) (unknown) (no date) (unknown) (unknown) # Glucose: Fairly controlled. BG goal [id number] (units unknown) (unknown) (unknown) (no date) (unknown) (unknown) # Lines/tubes: PIV (units unknown) (unknown) (unknown) (no date) (unknown) (unknown) # Prophylaxis: Lovenox 40 mg subcu for DVT prophylaxis, Pepcid for stress ulcer (units unknown) (unknown) (unknown) (no date) (unknown) (unknown) (1) Alcohol withdrawal delirium, acute, hyperactive: (units unknown) (unknown) (unknown) (no date) (unknown) (unknown) (2) Alcohol use disorder: (units unknown) (unknown) (unknown) (no date) (unknown) (unknown) (3) Acute cystitis: (units unknown) (unknown) (unknown) (no date) (unknown) (unknown) (past 8 hours): (units unknown) (unknown) (unknown) (no date) (unknown) (unknown) - Agree with rest of the management per primary team. D/w Primary hospitalist. (units unknown) (unknown) (unknown) (no date) (unknown) (unknown) - C/w aspiration and seizure precautions, Currently NPO due to severe (units unknown) (unknown) (unknown) (no date) (unknown) (unknown) - Consult social sciences professor to arrange for appropriate referral for detox program. (units unknown) (unknown) (unknown) (no date) (unknown) (unknown) - Continue IV Ativan 4-10 mg every 15 min PRN with goal to keep CIWA <8 per (units unknown) (unknown) (unknown) (no date) (unknown) (unknown) - Continue IV antibiotics x 3 days. Follow up and adjust antibiotics according (units unknown) (unknown) (unknown) (no date) (unknown) (unknown) - Continue alcohol withdrawal protocol including monitoring by CIWA score. C/w (units unknown) (unknown) (unknown) (no date) (unknown) (unknown) - Has relapsed and falied rehab. Consult social sciences professor to arrange for (units unknown) (unknown) (unknown) (no date) (unknown) (unknown) - If unable to keep CIWA less than 12, may use phenobarbital 130 mg IV/IM as (units unknown) (unknown) (unknown) (no date) (unknown) (unknown) - Order US of abdome n to evaluate for liver cirrhosis. (units unknown) (unknown) (unknown) (no date) (unknown) (unknown) - Received thiamine 100 mg IV, total 6 mg of Ativan IV, Librium 50 mg PO, and (units unknown) (unknown) (unknown) (no date) (unknown) (unknown) - She is able to protect his airway, does not need endotracheal intubation at (units unknown) (unknown) (unknown) (no date) (unknown) (unknown) - Start Librium 50 m g PO QID if and when able to tolerate PO meds. (units unknown) (unknown) (unknown) (no date) (unknown) (unknown) - Still has room to administer more BZPs and phenobarbital. 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 with (units unknown) (unknown) (unknown) (no date) (unknown) (unknown) 0.2 MCG/KG/HR (units unknown) (unknown) (unknown) (no date) (unknown) (unknown) [id number] (units unknown) (unknown) (unknown) (no date) (unknown) (unknown) 07/03/20] (units unknown) (unknown) (unknown) (no date) (unknown) (unknown) 07/12/22 07/12/22 07/12/22 (units unknown) (unknown) (unknown) (no date) (unknown) (unknown) 07/13/22 07/13/22 (units unknown) (unknown) (unknown) (no date) (unknown) (unknown) 07/13/22 08:50 (units unknown) (unknown) (unknown) (no date) (unknown) (unknown) 07/13/22 11:13 (units unknown) (unknown) (unknown) (no date) (unknown) (unknown) 07/13/22 1207 (units unknown) (unknown) (unknown) (no date) (unknown) (unknown) 07/13/22 (units unknown) (unknown) (unknown) (no date) (unknown) (unknown) 04:00 07/13/22 (units unknown) (unknown) (unknown) (no date) (unknown) (unknown) 04:30 07/13/22 (units unknown) (unknown) (unknown) (no date) (unknown) (unknown) 05:00 (units unknown) (unknown) (unknown) (no date) (unknown) (unknown) 05:30 07/13/22 (units unknown) (unknown) (unknown) (no date) (unknown) (unknown) 05:54 07/13/22 (units unknown) (unknown) (unknown) (no date) (unknown) (unknown) 05:54 (units unknown) (unknown) (unknown) (no date) (unknown) (unknown) 06:00 07/13/22 (units unknown) (unknown) (unknown) (no date) (unknown) (unknown) 06:39 (units unknown) (unknown) (unknown) (no date) (unknown) (unknown) 06:55 07/13/22 (units unknown) (unknown) (unknown) (no date) (unknown) (unknown) 07:04 07/13/22 (units unknown) (unknown) (unknown) (no date) (unknown) (unknown) 07:04 (units unknown) (unknown) (unknown) (no date) (unknown) (unknown) 07:33 07/13/22 (units unknown) (unknown) (unknown) (no date) (unknown) (unknown) 07:34 07/13/22 (units unknown) (unknown) (unknown) (no date) (unknown) (unknown) 07:34 (units unknown) (unknown) (unknown) (no date) (unknown) (unknown) 08:00 07/13/22 (units unknown) (unknown) (unknown) (no date) (unknown) (unknown) 08:33 (units unknown) (unknown) (unknown) (no date) (unknown) (unknown) 08:50 08:50 (units unknown) (unknown) (unknown) (no date) (unknown) (unknown) 02/05/20 [Rx Confirmed 07/03/20] (units unknown) (unknown) (unknown) (no date) (unknown) (unknown) 09:00 07/13/22 (units unknown) (unknown) (unknown) (no date) (unknown) (unknown) 09:46 (units unknown) (unknown) (unknown) (no date) (unknown) (unknown) 09:47 07/13/22 (units unknown) (unknown) (unknown) (no date) (unknown) (unknown) 16:32 16:32 16:32 (units unknown) (unknown) (unknown) (no date) (unknown) (unknown) 19:15 19:15 19:15 (units unknown) (unknown) (unknown) (no date) (unknown) (unknown) 60 mg IV BID scheduled. (units unknown) (unknown) (unknown) (no date) (unknown) (unknown) 67, urinalysis indicated many bacteria. As per the bedside nurse, patient (units unknown) (unknown) (unknown) (no date) (unknown) (unknown) 97% on room air. She weighs 49.8 kg with a BMI of 20.1. WBC is 3.3, hemoglobin (units unknown) (unknown) (unknown) (no date) (unknown) (unknown) ALT 19 (units unknown) (unknown) (unknown) (no date) (unknown) (unknown) ALT 21 (units unknown) (unknown) (unknown) (no date) (unknown) (unknown) ALT (units unknown) (unknown) (unknown) (no date) (unknown) (unknown) AST 52 H (units unknown) (unknown) (unknown) (no date) (unknown) (unknown) AST 67 H (units unknown) (unknown) (unknown) (no date) (unknown) (unknown) AST (units unknown) (unknown) (unknown) (no date) (unknown) (unknown) Acetaminophen < 10 (units unknown) (unknown) (unknown) (no date) (unknown) (unknown) Acetaminophen (units unknown) (unknown) (unknown) (no date) (unknown) (unknown) Administration (units unknown) (unknown) (unknown) (no date) (unknown) (unknown) Age/Sex: 31 / F (units unknown) (unknown) (unknown) (no date) (unknown) (unknown) Albumin 3.5 (units unknown) (unknown) (unknown) (no date) (unknown) (unknown) Albumin 4.3 (units unknown) (unknown) (unknown) (no date) (unknown) (unknown) Albumin (units unknown) (unknown) (unknown) (no date) (unknown) (unknown) Albumin/Globulin Ratio 1.3 (units unknown) (unknown) (unknown) (no date) (unknown) (unknown) Albumin/Globulin Ratio 1.4 (units unknown) (unknown) (unknown) (no date) (unknown) (unknown) Albumin/Globulin Ratio (units unknown) (unknown) (unknown) (no date) (unknown) (unknown) Alcohol Withdrawal (units unknown) (unknown) (unknown) (no date) (unknown) (unknown) Alcohol withdrawal delirium, acute, hyperactive (units unknown) (unknown) (unknown) (no date) (unknown) (unknown) Alcoholism (units unknown) (unknown) (unknown) (no date) (unknown) (unknown) Alkaline Phosphatase 75 (units unknown) (unknown) (unknown) (no date) (unknown) (unknown) Alkaline Phosphatase 98 (units unknown) (unknown) (unknown) (no date) (unknown) (unknown) Alkaline Phosphatase (units unknown) (unknown) (unknown) (no date) (unknown) (unknown) Anemia (-2018) (units unknown) (unknown) (unknown) (no date) (unknown) (unknown) Assessment + Plan (units unknown) (unknown) (unknown) (no date) (unknown) (unknown) Assessment and plan (units unknown) (unknown) (unknown) (no date) (unknown) (unknown) Awake, oriented x 3, severely confused, intermittently agitated/restless but (units unknown) (unknown) (unknown) (no date) (unknown) (unknown) BUN 11 (units unknown) (unknown) (unknown) (no date) (unknown) (unknown) BUN 9 (units unknown) (unknown) (unknown) (no date) (unknown) (unknown) BUN (units unknown) (unknown) (unknown) (no date) (unknown) (unknown) BUN/Creatinine Ratio 11.0 (units unknown) (unknown) (unknown) (no date) (unknown) (unknown) BUN/Creatinine Ratio 16.4 (units unknown) (unknown) (unknown) (no date) (unknown) (unknown) BUN/Creatinine Ratio (units unknown) (unknown) (unknown) (no date) (unknown) (unknown) BZPs + phenobarb. Would discourage the use of Precedex solely for the treatment (units unknown) (unknown) (unknown) (no date) (unknown) (unknown) Baso # (Auto) 0 (units unknown) (unknown) (unknown) (no date) (unknown) (unknown) Baso # (Auto) (units unknown) (unknown) (unknown) (no date) (unknown) (unknown) Baso % (Auto) 0.7 (units unknown) (unknown) (unknown) (no date) (unknown) (unknown) Baso % (Auto) 0.9 (units unknown) (unknown) (unknown) (no date) (unknown) (unknown) Baso % (Auto) (units unknown) (unknown) (unknown) (no date) (unknown) (unknown) Blood Pressure 104/5 9 L 123/58 L (units unknown) (unknown) (unknown) (no date) (unknown) (unknown) Blood Pressure 111/5 9 L (units unknown) (unknown) (unknown) (no date) (unknown) (unknown) Blood Pressure 116/7 5 116/65 (units unknown) (unknown) (unknown) (no date) (unknown) (unknown) Blood Pressure 93/54 L (units unknown) (unknown) (unknown) (no date) (unknown) (unknown) Blood Pressure 99/52 L (units unknown) (unknown) (unknown) (no date) (unknown) (unknown) Blood Pressure (units unknown) (unknown) (unknown) (no date) (unknown) (unknown) CIWAPRN PRN Administration (units unknown) (unknown) (unknown) (no date) (unknown) (unknown) CONT SANDY Infusion (units unknown) (unknown) (unknown) (no date) (unknown) (unknown) Calcium 8.0 L (units unknown) (unknown) (unknown) (no date) (unknown) (unknown) Calcium 8.1 L (units unknown) (unknown) (unknown) (no date) (unknown) (unknown) Calcium (units unknown) (unknown) (unknown) (no date) (unknown) (unknown) Carbon Dioxide 23 (units unknown) (unknown) (unknown) (no date) (unknown) (unknown) Carbon Dioxide 28 (units unknown) (unknown) (unknown) (no date) (unknown) (unknown) Carbon Dioxide (units unknown) (unknown) (unknown) (no date) (unknown) (unknown) Cardio (units unknown) (unknown) (unknown) (no date) (unknown) (unknown) Chest (units unknown) (unknown) (unknown) (no date) (unknown) (unknown) Chief complaint: Acute alcohol withdrawal (units unknown) (unknown) (unknown) (no date) (unknown) (unknown) Chlordiazepoxide 25 Mg Capsule PO 50 mg (units unknown) (unknown) (unknown) (no date) (unknown) (unknown) Chlordiazepoxide HCl 50 mg 07/13/22 09:10 07/13/22 09:45 (units unknown) (unknown) (unknown) (no date) (unknown) (unknown) Chloride 100 (units unknown) (unknown) (unknown) (no date) (unknown) (unknown) Chloride 104 (units unknown) (unknown) (unknown) (no date) (unknown) (unknown) Chloride (units unknown) (unknown) (unknown) (no date) (unknown) (unknown) Cipro IV Infused (units unknown) (unknown) (unknown) (no date) (unknown) (unknown) Ciprofloxacin 400 mg in 200 mls @ 200 mls/hr 07/13/22 08:00 07/13/22 09:21 (units unknown) (unknown) (unknown) (no date) (unknown) (unknown) Consent obtained for tele-bioinformatics technician care: Yes (units unknown) (unknown) (unknown) (no date) (unknown) (unknown) Const (units unknown) (unknown) (unknown) (no date) (unknown) (unknown) Consult details (units unknown) (unknown) (unknown) (no date) (unknown) (unknown) Creatinine 0.67 (units unknown) (unknown) (unknown) (no date) (unknown) (unknown) Creatinine 0.82 (units unknown) (unknown) (unknown) (no date) (unknown) (unknown) Creatinine (units unknown) (unknown) (unknown) (no date) (unknown) (unknown) Critical Care time: (units unknown) (unknown) (unknown) (no date) (unknown) (unknown) Current Medications (units unknown) (unknown) (unknown) (no date) (unknown) (unknown) DAILY SANDY Administration (units unknown) (unknown) (unknown) (no date) (unknown) (unknown) : 1990 Acct:[id number] (units unknown) (unknown) (unknown) (no date) (unknown) (unknown) Date of Service: 07/13/22 (units unknown) (unknown) (unknown) (no date) (unknown) (unknown) Discussed the plan o f care with bedside RN, ICU charge nurse and hospitalist (units unknown) (unknown) (unknown) (no date) (unknown) (unknown) Enoxaparin 40 Mg/0.4 Ml Syringe SUBCUT 40 mg (units unknown) (unknown) (unknown) (no date) (unknown) (unknown) Enoxaparin Sodium 40 mg 07/13/22 09:00 07/13/22 09:28 (units unknown) (unknown) (unknown) (no date) (unknown) (unknown) Eos # (Auto) 0 (units unknown) (unknown) (unknown) (no date) (unknown) (unknown) Eos # (Auto) (units unknown) (unknown) (unknown) (no date) (unknown) (unknown) Eos % (Auto) 0.3 L (units unknown) (unknown) (unknown) (no date) (unknown) (unknown) Eos % (Auto) (units unknown) (unknown) (unknown) (no date) (unknown) (unknown) Estimated GFR > 60 (units unknown) (unknown) (unknown) (no date) (unknown) (unknown) Estimated GFR (units unknown) (unknown) (unknown) (no date) (unknown) (unknown) Ethyl Alcohol 338 H (units unknown) (unknown) (unknown) (no date) (unknown) (unknown) Ethyl Alcohol (units unknown) (unknown) (unknown) (no date) (unknown) (unknown) Exam (units unknown) (unknown) (unknown) (no date) (unknown) (unknown) Family History (units unknown) (unknown) (unknown) (no date) (unknown) (unknown) Family/Other Alcoholism (units unknown) (unknown) (unknown) (no date) (unknown) (unknown) Family/Other Diabete s mellitus (units unknown) (unknown) (unknown) (no date) (unknown) (unknown) Father Alcoholism (units unknown) (unknown) (unknown) (no date) (unknown) (unknown) Folic Acid 1 Mg Tablet PO 1 mg (units unknown) (unknown) (unknown) (no date) (unknown) (unknown) Folic Acid 1 mg 07/13/22 09:00 07/13/22 09:27 (units unknown) (unknown) (unknown) (no date) (unknown) (unknown) Free T4 0.93 (units unknown) (unknown) (unknown) (no date) (unknown) (unknown) Free T4 (units unknown) (unknown) (unknown) (no date) (unknown) (unknown) Generic Name Dose Route Start Last Admin (units unknown) (unknown) (unknown) (no date) (unknown) (unknown) Globulin 2.7 (units unknown) (unknown) (unknown) (no date) (unknown) (unknown) Globulin 3.0 (units unknown) (unknown) (unknown) (no date) (unknown) (unknown) Globulin (units unknown) (unknown) (unknown) (no date) (unknown) (unknown) Glucose 111 H (units unknown) (unknown) (unknown) (no date) (unknown) (unknown) Glucose 138 H (units unknown) (unknown) (unknown) (no date) (unknown) (unknown) Glucose (units unknown) (unknown) (unknown) (no date) (unknown) (unknown) Grandfather Smoker (units unknown) (unknown) (unknown) (no date) (unknown) (unknown) Grandfather Unknown whether patient has any health problems (units unknown) (unknown) (unknown) (no date) (unknown) (unknown) Grandmother Diabetes mellitus (units unknown) (unknown) (unknown) (no date) (unknown) (unknown) Grandmother Hypoglycemia (units unknown) (unknown) (unknown) (no date) (unknown) (unknown) H/O dilation and curettage (-12/14/16) (units unknown) (unknown) (unknown) (no date) (unknown) (unknown) H/O wisdom tooth extraction () (units unknown) (unknown) (unknown) (no date) (unknown) (unknown) Hct 26.8 L (units unknown) (unknown) (unknown) (no date) (unknown) (unknown) Hct 35.3 L (units unknown) (unknown) (unknown) (no date) (unknown) (unknown) Hct (units unknown) (unknown) (unknown) (no date) (unknown) (unknown) Hematuria presence: without hematuria Qualified Code(s): N30.00 - Acute (units unknown) (unknown) (unknown) (no date) (unknown) (unknown) Hgb 11.5 L (units unknown) (unknown) (unknown) (no date) (unknown) (unknown) Hgb 9.1 L (units unknown) (unknown) (unknown) (no date) (unknown) (unknown) Hgb (units unknown) (unknown) (unknown) (no date) (unknown) (unknown) History of Present Illness (units unknown) (unknown) (unknown) (no date) (unknown) (unknown) Home Medications (units unknown) (unknown) (unknown) (no date) (unknown) (unknown) I spent a total of [30] minutes of critical care time on this patient's care (units unknown) (unknown) (unknown) (no date) (unknown) (unknown) IF CAMERA ACTIVATED, patient seen via real-time interactive audiovisual (units unknown) (unknown) (unknown) (no date) (unknown) (unknown) In Sinus Tachycardia (units unknown) (unknown) (unknown) (no date) (unknown) (unknown) 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 (units unknown) (unknown) (unknown) (no date) (unknown) (unknown) Insomnia (units unknown) (unknown) (unknown) (no date) (unknown) (unknown) [address] [address] (units unknown) (unknown) (unknown) (no date) (unknown) (unknown) May 2022 for similar symptoms including most recent visit with blood alcohol (units unknown) (unknown) (unknown) (no date) (unknown) (unknown) Laboratory Results - last 24 hr (units unknown) (unknown) (unknown) (no date) (unknown) (unknown) Labs (units unknown) (unknown) (unknown) (no date) (unknown) (unknown) Labs: (units unknown) (unknown) (unknown) (no date) (unknown) (unknown) Lorazepam 0 mg 07/13/22 06:40 07/13/22 10:15 (units unknown) (unknown) (unknown) (no date) (unknown) (unknown) Lorazepam 2 Mg/Ml In j IV 2 mg (units unknown) (unknown) (unknown) (no date) (unknown) (unknown) Lymph # (Auto) 1200 (units unknown) (unknown) (unknown) (no date) (unknown) (unknown) Lymph # (Auto) 1700 (units unknown) (unknown) (unknown) (no date) (unknown) (unknown) Lymph # (Auto) (units unknown) (unknown) (unknown) (no date) (unknown) (unknown) Lymph % (Auto) 36.8 (units unknown) (unknown) (unknown) (no date) (unknown) (unknown) Lymph % (Auto) 50.6 H (units unknown) (unknown) (unknown) (no date) (unknown) (unknown) Lymph % (Auto) (units unknown) (unknown) (unknown) (no date) (unknown) (unknown) MCH 26.0 (units unknown) (unknown) (unknown) (no date) (unknown) (unknown) MCH 26.3 (units unknown) (unknown) (unknown) (no date) (unknown) (unknown) MCH (units unknown) (unknown) (unknown) (no date) (unknown) (unknown) MCHC 32.7 (units unknown) (unknown) (unknown) (no date) (unknown) (unknown) MCHC 34.0 (units unknown) (unknown) (unknown) (no date) (unknown) (unknown) MCHC (units unknown) (unknown) (unknown) (no date) (unknown) (unknown) MCV 77.5 L (units unknown) (unknown) (unknown) (no date) (unknown) (unknown) MCV 79.5 L (units unknown) (unknown) (unknown) (no date) (unknown) (unknown) MCV (units unknown) (unknown) (unknown) (no date) (unknown) (unknown) MVI + Folate + Thiamine + pyridoxine. (units unknown) (unknown) (unknown) (no date) (unknown) (unknown) Magnesium 1.4 L (units unknown) (unknown) (unknown) (no date) (unknown) (unknown) Magnesium (units unknown) (unknown) (unknown) (no date) (unknown) (unknown) Medical History (Updated 07/13/22 @ 11:47 by Gerardo Mccormick MD) (units unknown) (unknown) (unknown) (no date) (unknown) (unknown) Medications: (units unknown) (unknown) (unknown) (no date) (unknown) (unknown) Menometrorrhagia (units unknown) (unknown) (unknown) (no date) (unknown) (unknown) [place] # (Auto) 100 (units unknown) (unknown) (unknown) (no date) (unknown) (unknown) [place] # (Auto) 200 (units unknown) (unknown) (unknown) (no date) (unknown) (unknown) [place] # (Auto) (units unknown) (unknown) (unknown) (no date) (unknown) (unknown) [place] % (Auto) 2.7 L (units unknown) (unknown) (unknown) (no date) (unknown) (unknown) [place] % (Auto) 6.4 (units unknown) (unknown) (unknown) (no date) (unknown) (unknown) [place] % (Auto) (units unknown) (unknown) (unknown) (no date) (unknown) (unknown) Mother Diabetes mellitus (units unknown) (unknown) (unknown) (no date) (unknown) (unknown) Moving all 4 extremities spontaneously (units unknown) (unknown) (unknown) (no date) (unknown) (unknown) Multivitamin 1 Table t PO 1 tab (units unknown) (unknown) (unknown) (no date) (unknown) (unknown) Multivitamins 1 tab 07/13/22 09:00 07/13/22 09:27 (units unknown) (unknown) (unknown) (no date) (unknown) (unknown) Narrative: (units unknown) (unknown) (unknown) (no date) (unknown) (unknown) Neuro (units unknown) (unknown) (unknown) (no date) (unknown) (unknown) Neut # (Auto) 1500 (units unknown) (unknown) (unknown) (no date) (unknown) (unknown) Neut # (Auto) 1800 (units unknown) (unknown) (unknown) (no date) (unknown) (unknown) Neut # (Auto) (units unknown) (unknown) (unknown) (no date) (unknown) (unknown) Neut % (Auto) 45.5 L (units unknown) (unknown) (unknown) (no date) (unknown) (unknown) Neut % (Auto) 55.8 (units unknown) (unknown) (unknown) (no date) (unknown) (unknown) Neut % (Auto) (units unknown) (unknown) (unknown) (no date) (unknown) (unknown) Nicotine 14 Patch TO P 14 mg (units unknown) (unknown) (unknown) (no date) (unknown) (unknown) Nicotine 14 mg 07/13/22 09:00 07/13/22 09:28 (units unknown) (unknown) (unknown) (no date) (unknown) (unknown) Normal Saline 0.9% I V 0 mls/hr (units unknown) (unknown) (unknown) (no date) (unknown) (unknown) Not using accessory muscle use (units unknown) (unknown) (unknown) (no date) (unknown) (unknown) Obesity (units unknown) (unknown) (unknown) (no date) (unknown) (unknown) Objective (units unknown) (unknown) (unknown) (no date) (unknown) (unknown) 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: RN (units unknown) (unknown) (unknown) (no date) (unknown) (unknown) Other: (units unknown) (unknown) (unknown) (no date) (unknown) (unknown) Overweight (units unknown) (unknown) (unknown) (no date) (unknown) (unknown) Oxygen Delivery Method Room Air (units unknown) (unknown) (unknown) (no date) (unknown) (unknown) PFSH (units unknown) (unknown) (unknown) (no date) (unknown) (unknown) Pantoprazole 40 Mg Vial IV 40 mg (units unknown) (unknown) (unknown) (no date) (unknown) (unknown) Pantoprazole Sodium 40 mg 07/13/22 09:00 07/13/22 09:27 (units unknown) (unknown) (unknown) (no date) (unknown) (unknown) Patient Location: ICU (units unknown) (unknown) (unknown) (no date) (unknown) (unknown) Patient stated that she used to be sober for about 18 months in the past but had (units unknown) (unknown) (unknown) (no date) (unknown) (unknown) Patient: Sarah Connors MR#: M (units unknown) (unknown) (unknown) (no date) (unknown) (unknown) Plan: (units unknown) (unknown) (unknown) (no date) (unknown) (unknown) Plt Count 129 L (units unknown) (unknown) (unknown) (no date) (unknown) (unknown) Plt Count 226 (units unknown) (unknown) (unknown) (no date) (unknown) (unknown) Plt Count (units unknown) (unknown) (unknown) (no date) (unknown) (unknown) Potassium 3.7 (units unknown) (unknown) (unknown) (no date) (unknown) (unknown) Potassium 3.9 (units unknown) (unknown) (unknown) (no date) (unknown) (unknown) Potassium (units unknown) (unknown) (unknown) (no date) (unknown) (unknown) Precedex IV 0.2 mcg/kg/hr (units unknown) (unknown) (unknown) (no date) (unknown) (unknown) Problem details: (units unknown) (unknown) (unknown) (no date) (unknown) (unknown) Protocol (units unknown) (unknown) (unknown) (no date) (unknown) (unknown) Provider location (State): [place] (units unknown) (unknown) (unknown) (no date) (unknown) (unknown) Provider: Greardo Mccormick (units unknown) (unknown) (unknown) (no date) (unknown) (unknown) Pulse Oximetry 100 100 100 (units unknown) (unknown) (unknown) (no date) (unknown) (unknown) Pulse Oximetry 100 98 (units unknown) (unknown) (unknown) (no date) (unknown) (unknown) Pulse Oximetry 100 (units unknown) (unknown) (unknown) (no date) (unknown) (unknown) Pulse Oximetry 97 100 (units unknown) (unknown) (unknown) (no date) (unknown) (unknown) Pulse Oximetry 97 98 98 (units unknown) (unknown) (unknown) (no date) (unknown) (unknown) Pulse Oximetry 97 99 (units unknown) (unknown) (unknown) (no date) (unknown) (unknown) Pulse Oximetry 98 98 (units unknown) (unknown) (unknown) (no date) (unknown) (unknown) Pulse Oximetry 99 (units unknown) (unknown) (unknown) (no date) (unknown) (unknown) Pulse Rate 112 H 125 H 75 (units unknown) (unknown) (unknown) (no date) (unknown) (unknown) Pulse Rate 112 H (units unknown) (unknown) (unknown) (no date) (unknown) (unknown) Pulse Rate 119 H 111 H (units unknown) (unknown) (unknown) (no date) (unknown) (unknown) Pulse Rate 120 H 122 H (units unknown) (unknown) (unknown) (no date) (unknown) (unknown) Pulse Rate 122 H 113 H (units unknown) (unknown) (unknown) (no date) (unknown) (unknown) Pulse Rate 77 98 H (units unknown) (unknown) (unknown) (no date) (unknown) (unknown) Pulse Rate 97 H (units unknown) (unknown) (unknown) (no date) (unknown) (unknown) Pulse Rate 98 H 101 H 109 H (units unknown) (unknown) (unknown) (no date) (unknown) (unknown) Q12H SANDY Infusion (units unknown) (unknown) (unknown) (no date) (unknown) (unknown) Q6H SANDY Administration (units unknown) (unknown) (unknown) (no date) (unknown) (unknown) Qualifiers: (units unknown) (unknown) (unknown) (no date) (unknown) (unknown) RBC 3.45 L (units unknown) (unknown) (unknown) (no date) (unknown) (unknown) RBC 4.44 (units unknown) (unknown) (unknown) (no date) (unknown) (unknown) RBC (units unknown) (unknown) (unknown) (no date) (unknown) (unknown) RDW 17.3 H (units unknown) (unknown) (unknown) (no date) (unknown) (unknown) RDW (units unknown) (unknown) (unknown) (no date) (unknown) (unknown) Respiratory Rate 20 (units unknown) (unknown) (unknown) (no date) (unknown) (unknown) Respiratory Rate 22 (units unknown) (unknown) (unknown) (no date) (unknown) (unknown) Respiratory Rate (units unknown) (unknown) (unknown) (no date) (unknown) (unknown) S/P myringotomy with insertion of tube (units unknown) (unknown) (unknown) (no date) (unknown) (unknown) SARS-CoV-2 (PCR) Negative (units unknown) (unknown) (unknown) (no date) (unknown) (unknown) SARS-CoV-2 (PCR) (units unknown) (unknown) (unknown) (no date) (unknown) (unknown) (spontaneous vaginal delivery) (-09/05/18) (units unknown) (unknown) (unknown) (no date) (unknown) (unknown) Salicylates < 1.0 (units unknown) (unknown) (unknown) (no date) (unknown) (unknown) Salicylates (units unknown) (unknown) (unknown) (no date) (unknown) (unknown) She was also found t o have UTI and was given a dose of oral cephalexin. Her (units unknown) (unknown) (unknown) (no date) (unknown) (unknown) Signed By:<Electronically signed by Gerardo Mccormick> (units unknown) (unknown) (unknown) (no date) (unknown) (unknown) Smoker (units unknown) (unknown) (unknown) (no date) (unknown) (unknown) Smoking Status: Former smoker (units unknown) (unknown) (unknown) (no date) (unknown) (unknown) Social History (units unknown) (unknown) (unknown) (no date) (unknown) (unknown) Sodium 135 L (units unknown) (unknown) (unknown) (no date) (unknown) (unknown) Sodium 140 (units unknown) (unknown) (unknown) (no date) (unknown) (unknown) Sodium Chloride 1,00 0 mls @ 100 mls/hr 07/13/22 06:45 07/13/22 10:47 (units unknown) (unknown) (unknown) (no date) (unknown) (unknown) Sodium (units unknown) (unknown) (unknown) (no date) (unknown) (unknown) Status: Acute (units unknown) (unknown) (unknown) (no date) (unknown) (unknown) Surgical History (units unknown) (unknown) (unknown) (no date) (unknown) (unknown) TITRATE SANDY 2.495 mls/hr (units unknown) (unknown) (unknown) (no date) (unknown) (unknown) TSH 1.24 (units unknown) (unknown) (unknown) (no date) (unknown) (unknown) TSH (units unknown) (unknown) (unknown) (no date) (unknown) (unknown) 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 (units unknown) (unknown) (unknown) (no date) (unknown) (unknown) The patient has high probability of sudden, clinically significant (units unknown) (unknown) (unknown) (no date) (unknown) (unknown) Thiamine 100 Mg Tablet PO 07/16/22 09:01 100 mg (units unknown) (unknown) (unknown) (no date) (unknown) (unknown) Thiamine HCl 100 mg 07/13/22 09:00 07/13/22 09:27 (units unknown) (unknown) (unknown) (no date) (unknown) (unknown) This is a 31 years old female with history of alcohol use disorder who presented (units unknown) (unknown) (unknown) (no date) (unknown) (unknown) Time Spent With Patient (units unknown) (unknown) (unknown) (no date) (unknown) (unknown) Total Bilirubin 0.4 (units unknown) (unknown) (unknown) (no date) (unknown) (unknown) Total Bilirubin 0.8 (units unknown) (unknown) (unknown) (no date) (unknown) (unknown) Total Bilirubin (units unknown) (unknown) (unknown) (no date) (unknown) (unknown) Total Protein 6.2 L (units unknown) (unknown) (unknown) (no date) (unknown) (unknown) Total Protein 7.3 (units unknown) (unknown) (unknown) (no date) (unknown) (unknown) Total Protein (units unknown) (unknown) (unknown) (no date) (unknown) (unknown) Trade Name Frandyq PRN Reason Stop Dose Admin (units unknown) (unknown) (unknown) (no date) (unknown) (unknown) U Benzodiazepines Scrn Negative (units unknown) (unknown) (unknown) (no date) (unknown) (unknown) U Benzodiazepines Scrn (units unknown) (unknown) (unknown) (no date) (unknown) (unknown) U Marijuana (THC) Screen Negative (units unknown) (unknown) (unknown) (no date) (unknown) (unknown) U Marijuana (THC) Screen (units unknown) (unknown) (unknown) (no date) (unknown) (unknown) U Methamphetamines Scrn Negative (units unknown) (unknown) (unknown) (no date) (unknown) (unknown) U Methamphetamines Scrn (units unknown) (unknown) (unknown) (no date) (unknown) (unknown) U Opiates 300ng/mL cut Negative (units unknown) (unknown) (unknown) (no date) (unknown) (unknown) U Opiates 300ng/mL cut (units unknown) (unknown) (unknown) (no date) (unknown) (unknown) U Tricyclic Antidepress Negative (units unknown) (unknown) (unknown) (no date) (unknown) (unknown) U Tricyclic Antidepress (units unknown) (unknown) (unknown) (no date) (unknown) (unknown) Ur Amphetamines Screen Negative (units unknown) (unknown) (unknown) (no date) (unknown) (unknown) Ur Amphetamines Screen (units unknown) (unknown) (unknown) (no date) (unknown) (unknown) Ur Barbiturates Screen Negative (units unknown) (unknown) (unknown) (no date) (unknown) (unknown) Ur Barbiturates Screen (units unknown) (unknown) (unknown) (no date) (unknown) (unknown) Ur Culture Indicated ? Specimen cultured (units unknown) (unknown) (unknown) (no date) (unknown) (unknown) Ur Culture Indicated? (units unknown) (unknown) (unknown) (no date) (unknown) (unknown) Ur MDMA Scrn (Ecstasy) Negative (units unknown) (unknown) (unknown) (no date) (unknown) (unknown) Ur MDMA Scrn (Ecstasy) (units unknown) (unknown) (unknown) (no date) (unknown) (unknown) Ur Oxycodone Screen Negative (units unknown) (unknown) (unknown) (no date) (unknown) (unknown) Ur Oxycodone Screen (units unknown) (unknown) (unknown) (no date) (unknown) (unknown) Ur Phencyclidine Scr n Negative (units unknown) (unknown) (unknown) (no date) (unknown) (unknown) Ur Phencyclidine Scrn (units unknown) (unknown) (unknown) (no date) (unknown) (unknown) Ur Squamous Epith Cells 1-5 /hpf (units unknown) (unknown) (unknown) (no date) (unknown) (unknown) Ur Squamous Epith Cells (units unknown) (unknown) (unknown) (no date) (unknown) (unknown) Urine Bacteria Many (>30) H (units unknown) (unknown) (unknown) (no date) (unknown) (unknown) Urine Bacteria (units unknown) (unknown) (unknown) (no date) (unknown) (unknown) Urine Cocaine Screen Negative (units unknown) (unknown) (unknown) (no date) (unknown) (unknown) Urine Cocaine Screen (units unknown) (unknown) (unknown) (no date) (unknown) (unknown) Urine Methadone Screen Negative (units unknown) (unknown) (unknown) (no date) (unknown) (unknown) Urine Methadone Screen (units unknown) (unknown) (unknown) (no date) (unknown) (unknown) Urine RBC 1-5/hpf (units unknown) (unknown) (unknown) (no date) (unknown) (unknown) Urine RBC (units unknown) (unknown) (unknown) (no date) (unknown) (unknown) Urine WBC 1-5/hpf (units unknown) (unknown) (unknown) (no date) (unknown) (unknown) Urine WBC (units unknown) (unknown) (unknown) (no date) (unknown) (unknown) Visit Medications (administered) (units unknown) (unknown) (unknown) (no date) (unknown) (unknown) Vital Signs (units unknown) (unknown) (unknown) (no date) (unknown) (unknown) WBC 3.3 L (units unknown) (unknown) (unknown) (no date) (unknown) (unknown) WBC (units unknown) (unknown) (unknown) (no date) (unknown) (unknown) [Embedded Image Not Available] (units unknown) (unknown) (unknown) (no date) (unknown) (unknown) [Rx Confirmed 07/03/20] (units unknown) (unknown) (unknown) (no date) (unknown) (unknown) [Rx] (units unknown) (unknown) (unknown) (no date) (unknown) (unknown) acetaminophen 325 mg tablet (Tylenol) 325 mg PO Q6H PRN pain #20 tabs 02/05/20 (units unknown) (unknown) (unknown) (no date) (unknown) (unknown) alcohol intake: former (units unknown) (unknown) (unknown) (no date) (unknown) (unknown) and Phos. (units unknown) (unknown) (unknown) (no date) (unknown) (unknown) and hematocrit are 11.5 and 35.3 respectively, glucose is 111, calcium 8.0, AST (units unknown) (unknown) (unknown) (no date) (unknown) (unknown) appropriate referral for detox program. (units unknown) (unknown) (unknown) (no date) (unknown) (unknown) as 750 cc of vodka every day. She has had several visits to ER department in (units unknown) (unknown) (unknown) (no date) (unknown) (unknown) bedside RN. (units unknown) (unknown) (unknown) (no date) (unknown) (unknown) blood pressure 93/54 , heart rate 119, respiratory rate 18, oxygen saturation of (units unknown) (unknown) (unknown) (no date) (unknown) (unknown) caps 02/05/20 [Rx Confirmed 07/03/20] (units unknown) (unknown) (unknown) (no date) (unknown) (unknown) care minutes of my full attention on this patient's management and direct (units unknown) (unknown) (unknown) (no date) (unknown) (unknown) communication: Camer a activated (units unknown) (unknown) (unknown) (no date) (unknown) (unknown) current occupational exposures/hazards: Yes (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 with Pandemic ) (units unknown) (unknown) (unknown) (no date) (unknown) (unknown) cystitis without hematuria (units unknown) (unknown) (unknown) (no date) (unknown) (unknown) decision making. Brian ferreira devoted to procedures I billed separately and is not (units unknown) (unknown) (unknown) (no date) (unknown) (unknown) deterioration, which requires urgent interventions. I managed life supporting (units unknown) (unknown) (unknown) (no date) (unknown) (unknown) dexmedeTOMIDine in 0.9 % NaCL 400 mcg in 100 mls @ 2.495 mls/hr 07/13/22 11:15 (units unknown) (unknown) (unknown) (no date) (unknown) (unknown) diphenhydramine HCl 25 mg capsule (Benadryl) 25 mg PO BEDTIME PRN insomnia #20 (units unknown) (unknown) (unknown) (no date) (unknown) (unknown) docusate sodium 100 mg capsule (Colace) 100 mg PO BID #30 caps (units unknown) (unknown) (unknown) (no date) (unknown) (unknown) education level: college 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 (units unknown) (unknown) (unknown) (no date) (unknown) (unknown) initial work-up was notable for blood alcohol level of 338. She is afebrile, (units unknown) (unknown) (unknown) (no date) (unknown) (unknown) interventions that required frequent physician assessment. I spent 35 critical (units unknown) (unknown) (unknown) (no date) (unknown) (unknown) level in 300s. Today , she was noted to be severely agitated and restless, (units unknown) (unknown) (unknown) (no date) (unknown) (unknown) marital status: (units unknown) (unknown) (unknown) (no date) (unknown) (unknown) nausea/vomiting (units unknown) (unknown) (unknown) (no date) (unknown) (unknown) needed (no more than 4 doses in 24 hours). (units unknown) (unknown) (unknown) (no date) (unknown) (unknown) number of children: 1 (units unknown) (unknown) (unknown) (no date) (unknown) (unknown) occupational status: employed (units unknown) (unknown) (unknown) (no date) (unknown) (unknown) of alcohol withdrawal. (units unknown) (unknown) (unknown) (no date) (unknown) (unknown) ondansetron 4 mg disintegrating tablet 4 mg PO Q6H PRN nausea and vomiting #14 (units unknown) (unknown) (unknown) (no date) (unknown) (unknown) ondansetron 4 mg disintegrating tablet 4 mg PO Q8H PRN nausea and vomiting #20 (units unknown) (unknown) (unknown) (no date) (unknown) (unknown) ondansetron 4 mg disintegrating tablet 4 mg PO Q8H PRN nausea and vomiting #30 (units unknown) (unknown) (unknown) (no date) (unknown) (unknown) patient care. Time I spent with family or surrogate(s) is included if the (units unknown) (unknown) (unknown) (no date) (unknown) (unknown) patient was incapabl e of providing information or participating in medical (units unknown) (unknown) (unknown) (no date) (unknown) (unknown) phenobarbital 130 mg IV so far with elevated CIWA score still between 12-20 per (units unknown) (unknown) (unknown) (no date) (unknown) (unknown) prenat.vits,otis,min- i thang-folic 1 tab PO DAILY 12/30/19 [History Confirmed (units unknown) (unknown) (unknown) (no date) (unknown) (unknown) presented to ER asking for help with rehab but she was deemed to be medically (units unknown) (unknown) (unknown) (no date) (unknown) (unknown) prophylaxis (units unknown) (unknown) (unknown) (no date) (unknown) (unknown) received phenobarbital 130 mg IV x1, Librium 50 mg p.o. x1, and Ativan 6 mg IV (units unknown) (unknown) (unknown) (no date) (unknown) (unknown) relapsed due to a divorce with her . She states that she drinks as much (units unknown) (unknown) (unknown) (no date) (unknown) (unknown) score remains less than 12 for at least 12 hours. (units unknown) (unknown) (unknown) (no date) (unknown) (unknown) second hand exposure : No (growing up as a child - not currently) (units unknown) (unknown) (unknown) (no date) (unknown) (unknown) special renee needs: No (units unknown) (unknown) (unknown) (no date) (unknown) (unknown) substance use type: does not use (units unknown) (unknown) (unknown) (no date) (unknown) (unknown) symptom triggered protocol. (units unknown) (unknown) (unknown) (no date) (unknown) (unknown) tabs 06/12/22 [Rx] (units unknown) (unknown) (unknown) (no date) (unknown) (unknown) tabs 01/01/20 [Rx Confirmed 07/03/20] (units unknown) (unknown) (unknown) (no date) (unknown) (unknown) tabs 02/05/20 [Rx Confirmed 07/03/20] (units unknown) (unknown) (unknown) (no date) (unknown) (unknown) team (units unknown) (unknown) (unknown) (no date) (unknown) (unknown) this time and remain s hemodynamically stable. (units unknown) (unknown) (unknown) (no date) (unknown) (unknown) to ED with acute alcohol intoxication with symptoms of alcohol withdrawal. (units unknown) (unknown) (unknown) (no date) (unknown) (unknown) to urine cultures. (units unknown) (unknown) (unknown) (no date) (unknown) (unknown) today; this time is exclusive of procedural time. (units unknown) (unknown) (unknown) (no date) (unknown) (unknown) tramadol 50 mg table t 50 mg PO Q6H PRN pain #10 tabs 06/12/22 [Rx] (units unknown) (unknown) (unknown) (no date) (unknown) (unknown) unstable for transfe r to rehab. Her CIWA score in the ED was as high as 20. (units unknown) (unknown) (unknown) (no date) (unknown) (unknown) x1 in the ED. She is now admitted to ICU on Precedex drip. (units unknown) (unknown) Result panel 2201 (unknown) (no date) (unknown) (unknown) Not Detected (units unknown) (unknown) Result panel 2202 (unknown) (no date) (unknown) (unknown) (no value) (units unknown) (unknown) (unknown) (no date) (unknown) (unknown) [id number] (units unknown) (unknown) (unknown) (no date) (unknown) (unknown) 07/13/222058 (units unknown) (unknown) (unknown) (no date) (unknown) (unknown) :: (units unknown) (unknown) (unknown) (no date) (unknown) (unknown) Age/Sex: 31 / F (units unknown) (unknown) (unknown) (no date) (unknown) (unknown) : 1990 Acct:[id number] (units unknown) (unknown) (unknown) (no date) (unknown) (unknown) Date of Service: 07/13/22 (units unknown) (unknown) (unknown) (no date) (unknown) (unknown) ICU Multidisciplinar y Rounds (units unknown) (unknown) (unknown) (no date) (unknown) (unknown) [address] [address] (units unknown) (unknown) (unknown) (no date) (unknown) (unknown) Patient: Saarh Connors MR#: [id number] (units unknown) (unknown) (unknown) (no date) (unknown) (unknown) Provider: Juan Miguel aSlinas (units unknown) (unknown) (unknown) (no date) (unknown) (unknown) Signed By:<Electronically signed by Juan Miguel Salinas> (units unknown) (unknown) (unknown) (no date) (unknown) (unknown) This patient was see n via real time interactive two-way audiovisual (units unknown) (unknown) (unknown) (no date) (unknown) (unknown) conversive, but her RASS did drop to -2 at times. Currently on 0.6mcg/kg/min. On (units unknown) (unknown) (unknown) (no date) (unknown) (unknown) fluid resusctiation. No obvious bleeding diathesis. will f/u repeat cbc. with (units unknown) (unknown) (unknown) (no date) (unknown) (unknown) goal being a hgb > 7. (units unknown) (unknown) (unknown) (no date) (unknown) (unknown) lab review her hgb did drop though I do think this is likely hemodilution after (units unknown) (unknown) (unknown) (no date) (unknown) (unknown) telecommunication. Cady rogers imrpoved on precedex drip. she was awake and (units unknown) (unknown) Result panel 2203 (unknown) (no date) (unknown) (unknown) 0 /ul (unknown) (unknown) (no date) (unknown) (unknown) 0.8 % (unknown) (unknown) (no date) (unknown) (unknown) 10.2 g/dl (unknown) (unknown) (no date) (unknown) (unknown) 100 /ul (unknown) (unknown) (no date) (unknown) (unknown) 1100 /ul (unknown) (unknown) (no date) (unknown) (unknown) 116 x10 3/ul (unknown) (unknown) (no date) (unknown) (unknown) 17.5 % (unknown) (unknown) (no date) (unknown) (unknown) 2.4 % (unknown) (unknown) (no date) (unknown) (unknown) 200 /ul (unknown) (unknown) (no date) (unknown) (unknown) 2100 /ul (unknown) (unknown) (no date) (unknown) (unknown) 26.5 pg (unknown) (unknown) (no date) (unknown) (unknown) 3.5 x10 3/ul (unknown) (unknown) (no date) (unknown) (unknown) 3.85 x10 6/ul (unknown) (unknown) (no date) (unknown) (unknown) 30.0 % (unknown) (unknown) (no date) (unknown) (unknown) 30.8 % (unknown) (unknown) (no date) (unknown) (unknown) 34.1 % (unknown) (unknown) (no date) (unknown) (unknown) 5.3 % (unknown) (unknown) (no date) (unknown) (unknown) 60.7 % (unknown) (unknown) (no date) (unknown) (unknown) 77.8 fl (unknown) Result panel 2204 (unknown) (no date) (unknown) (unknown) > 60 ml/min (unknown) (unknown) (no date) (unknown) (unknown) > 60 ml/min (unknown) (unknown) (no date) (unknown) (unknown) 0.63 mg/dl (unknown) (unknown) (no date) (unknown) (unknown) 0.7 mg/dl (unknown) (unknown) (no date) (unknown) (unknown) 1.3 (units unknown) (unknown) (unknown) (no date) (unknown) (unknown) 1.9 mg/dl (unknown) (unknown) (no date) (unknown) (unknown) 101 mmol/l (unknown) (unknown) (no date) (unknown) (unknown) 132 mmol/l (unknown) (unknown) (no date) (unknown) (unknown) 17 iu/l (unknown) (unknown) (no date) (unknown) (unknown) 2.7 g/dl (unknown) (unknown) (no date) (unknown) (unknown) 27 mmol/l (unknown) (unknown) (no date) (unknown) (unknown) 3.5 g/dl (unknown) (unknown) (no date) (unknown) (unknown) 4.2 mmol/l (unknown) (unknown) (no date) (unknown) (unknown) 45 iu/l (unknown) (unknown) (no date) (unknown) (unknown) 5 mg/dl (unknown) (unknown) (no date) (unknown) (unknown) 6.2 g/dl (unknown) (unknown) (no date) (unknown) (unknown) 68 u/l (unknown) (unknown) (no date) (unknown) (unknown) 7.9 (units unknown) (unknown) (unknown) (no date) (unknown) (unknown) 8.5 mg/dl (unknown) (unknown) (no date) (unknown) (unknown) 95 mg/dl (unknown) (unknown) (no date) (unknown) (unknown) 95 mg/dl (unknown) Result panel 2205 (unknown) (no date) (unknown) (unknown) (no value) (units unknown) (unknown) (unknown) (no date) (unknown) (unknown) (past 8 hours): (units unknown) (unknown) (unknown) (no date) (unknown) (unknown) [id number] (units unknown) (unknown) (unknown) (no date) (unknown) (unknown) 02:00 07/14/22 (units unknown) (unknown) (unknown) (no date) (unknown) (unknown) 02:08 (units unknown) (unknown) (unknown) (no date) (unknown) (unknown) 07/13/22 07/13/22 07/14/22 (units unknown) (unknown) (unknown) (no date) (unknown) (unknown) 07/14/22 08:20 (units unknown) (unknown) (unknown) (no date) (unknown) (unknown) 07/14/22 (units unknown) (unknown) (unknown) (no date) (unknown) (unknown) 03:00 07/14/22 (units unknown) (unknown) (unknown) (no date) (unknown) (unknown) 04:00 07/14/22 (units unknown) (unknown) (unknown) (no date) (unknown) (unknown) 04:00 (units unknown) (unknown) (unknown) (no date) (unknown) (unknown) 05:00 07/14/22 (units unknown) (unknown) (unknown) (no date) (unknown) (unknown) 05:00 (units unknown) (unknown) (unknown) (no date) (unknown) (unknown) 06:00 07/14/22 (units unknown) (unknown) (unknown) (no date) (unknown) (unknown) 06:28 (units unknown) (unknown) (unknown) (no date) (unknown) (unknown) 07:01 07/14/22 (units unknown) (unknown) (unknown) (no date) (unknown) (unknown) 07:52 (units unknown) (unknown) (unknown) (no date) (unknown) (unknown) 08:00 07/14/22 (units unknown) (unknown) (unknown) (no date) (unknown) (unknown) 08:20 (units unknown) (unknown) (unknown) (no date) (unknown) (unknown) 08:50 15:28 08:20 (units unknown) (unknown) (unknown) (no date) (unknown) (unknown) 09:00 07/14/22 (units unknown) (unknown) (unknown) (no date) (unknown) (unknown) 09:00 (units unknown) (unknown) (unknown) (no date) (unknown) (unknown) 09:12 (units unknown) (unknown) (unknown) (no date) (unknown) (unknown) ALT 17 (units unknown) (unknown) (unknown) (no date) (unknown) (unknown) ALT 19 (units unknown) (unknown) (unknown) (no date) (unknown) (unknown) AST 45 H (units unknown) (unknown) (unknown) (no date) (unknown) (unknown) AST 52 H (units unknown) (unknown) (unknown) (no date) (unknown) (unknown) Age/Sex: 31 / F (units unknown) (unknown) (unknown) (no date) (unknown) (unknown) Albumin 3.5 (units unknown) (unknown) (unknown) (no date) (unknown) (unknown) Albumin/Globulin Ratio 1.3 (units unknown) (unknown) (unknown) (no date) (unknown) (unknown) Alcohol withdrawal delirium, acute, hyperactive (units unknown) (unknown) (unknown) (no date) (unknown) (unknown) Alcoholism (units unknown) (unknown) (unknown) (no date) (unknown) (unknown) Alkaline Phosphatase 68 (units unknown) (unknown) (unknown) (no date) (unknown) (unknown) Alkaline Phosphatase 75 (units unknown) (unknown) (unknown) (no date) (unknown) (unknown) Anemia (-2018) (units unknown) (unknown) (unknown) (no date) (unknown) (unknown) Assessment + Plan (units unknown) (unknown) (unknown) (no date) (unknown) (unknown) BUN 11 (units unknown) (unknown) (unknown) (no date) (unknown) (unknown) BUN 5 L (units unknown) (unknown) (unknown) (no date) (unknown) (unknown) BUN/Creatinine Ratio 16.4 (units unknown) (unknown) (unknown) (no date) (unknown) (unknown) BUN/Creatinine Ratio 7.9 (units unknown) (unknown) (unknown) (no date) (unknown) (unknown) Baso # (Auto) 0 (units unknown) (unknown) (unknown) (no date) (unknown) (unknown) Baso # (Auto) (units unknown) (unknown) (unknown) (no date) (unknown) (unknown) Baso % (Auto) 0.8 (units unknown) (unknown) (unknown) (no date) (unknown) (unknown) Baso % (Auto) (units unknown) (unknown) (unknown) (no date) (unknown) (unknown) Blood Pressure 105/75 (units unknown) (unknown) (unknown) (no date) (unknown) (unknown) Blood Pressure 107/75 (units unknown) (unknown) (unknown) (no date) (unknown) (unknown) Blood Pressure 109/7 4 110/75 (units unknown) (unknown) (unknown) (no date) (unknown) (unknown) Blood Pressure 110/7 9 112/63 (units unknown) (unknown) (unknown) (no date) (unknown) (unknown) Blood Pressure 113/81 (units unknown) (unknown) (unknown) (no date) (unknown) (unknown) Blood Pressure 114/78 (units unknown) (unknown) (unknown) (no date) (unknown) (unknown) Blood Pressure (units unknown) (unknown) (unknown) (no date) (unknown) (unknown) Calcium 8.1 L (units unknown) (unknown) (unknown) (no date) (unknown) (unknown) Calcium 8.5 (units unknown) (unknown) (unknown) (no date) (unknown) (unknown) Carbon Dioxide 27 (units unknown) (unknown) (unknown) (no date) (unknown) (unknown) Carbon Dioxide 28 (units unknown) (unknown) (unknown) (no date) (unknown) (unknown) Chloride 100 (units unknown) (unknown) (unknown) (no date) (unknown) (unknown) Chloride 101 (units unknown) (unknown) (unknown) (no date) (unknown) (unknown) Creatinine 0.63 (units unknown) (unknown) (unknown) (no date) (unknown) (unknown) Creatinine 0.67 (units unknown) (unknown) (unknown) (no date) (unknown) (unknown) Critical Care time: (units unknown) (unknown) (unknown) (no date) (unknown) (unknown) : 1990 Acct:[id number] (units unknown) (unknown) (unknown) (no date) (unknown) (unknown) Date of Service: 07/13/22 (units unknown) (unknown) (unknown) (no date) (unknown) (unknown) Eos # (Auto) 100 (units unknown) (unknown) (unknown) (no date) (unknown) (unknown) Eos # (Auto) (units unknown) (unknown) (unknown) (no date) (unknown) (unknown) Eos % (Auto) 2.4 (units unknown) (unknown) (unknown) (no date) (unknown) (unknown) Eos % (Auto) (units unknown) (unknown) (unknown) (no date) (unknown) (unknown) Estimated GFR > 60 (units unknown) (unknown) (unknown) (no date) (unknown) (unknown) Exam (units unknown) (unknown) (unknown) (no date) (unknown) (unknown) Family History (units unknown) (unknown) (unknown) (no date) (unknown) (unknown) Family/Other Alcoholism (units unknown) (unknown) (unknown) (no date) (unknown) (unknown) Family/Other Diabete s mellitus (units unknown) (unknown) (unknown) (no date) (unknown) (unknown) Father Alcoholism (units unknown) (unknown) (unknown) (no date) (unknown) (unknown) Globulin 2.7 (units unknown) (unknown) (unknown) (no date) (unknown) (unknown) Glucose 138 H (units unknown) (unknown) (unknown) (no date) (unknown) (unknown) Glucose 95 (units unknown) (unknown) (unknown) (no date) (unknown) (unknown) Grandfather Smoker (units unknown) (unknown) (unknown) (no date) (unknown) (unknown) Grandfather Unknown whether patient has any health problems (units unknown) (unknown) (unknown) (no date) (unknown) (unknown) Grandmother Diabetes mellitus (units unknown) (unknown) (unknown) (no date) (unknown) (unknown) Grandmother Hypoglycemia (units unknown) (unknown) (unknown) (no date) (unknown) (unknown) H/O dilation and curettage (-12/14/16) (units unknown) (unknown) (unknown) (no date) (unknown) (unknown) H/O wisdom tooth extraction () (units unknown) (unknown) (unknown) (no date) (unknown) (unknown) Hct 30.0 L (units unknown) (unknown) (unknown) (no date) (unknown) (unknown) Hct (units unknown) (unknown) (unknown) (no date) (unknown) (unknown) Hgb 10.2 L (units unknown) (unknown) (unknown) (no date) (unknown) (unknown) Hgb (units unknown) (unknown) (unknown) (no date) (unknown) (unknown) I spent a total of [ ] minutes of critical care time on this patient's care (units unknown) (unknown) (unknown) (no date) (unknown) (unknown) Insomnia (units unknown) (unknown) (unknown) (no date) (unknown) (unknown) Interval history: (units unknown) (unknown) (unknown) (no date) (unknown) (unknown) [address] [address] (units unknown) (unknown) (unknown) (no date) (unknown) (unknown) Laboratory Results - last 24 hr (units unknown) (unknown) (unknown) (no date) (unknown) (unknown) Labs (units unknown) (unknown) (unknown) (no date) (unknown) (unknown) Labs: (units unknown) (unknown) (unknown) (no date) (unknown) (unknown) Lymph # (Auto) 1100 (units unknown) (unknown) (unknown) (no date) (unknown) (unknown) Lymph # (Auto) (units unknown) (unknown) (unknown) (no date) (unknown) (unknown) Lymph % (Auto) 30.8 (units unknown) (unknown) (unknown) (no date) (unknown) (unknown) Lymph % (Auto) (units unknown) (unknown) (unknown) (no date) (unknown) (unknown) MCH 26.5 (units unknown) (unknown) (unknown) (no date) (unknown) (unknown) MCH (units unknown) (unknown) (unknown) (no date) (unknown) (unknown) MCHC 34.1 (units unknown) (unknown) (unknown) (no date) (unknown) (unknown) MCHC (units unknown) (unknown) (unknown) (no date) (unknown) (unknown) MCV 77.8 L (units unknown) (unknown) (unknown) (no date) (unknown) (unknown) MCV (units unknown) (unknown) (unknown) (no date) (unknown) (unknown) Magnesium 1.4 L (units unknown) (unknown) (unknown) (no date) (unknown) (unknown) Magnesium 1.9 (units unknown) (unknown) (unknown) (no date) (unknown) (unknown) Medical History (Updated 07/13/22 @ 11:47 by Gerardo Mccormick MD) (units unknown) (unknown) (unknown) (no date) (unknown) (unknown) Menometrorrhagia (units unknown) (unknown) (unknown) (no date) (unknown) (unknown) [place] # (Auto) 200 (units unknown) (unknown) (unknown) (no date) (unknown) (unknown) [place] # (Auto) (units unknown) (unknown) (unknown) (no date) (unknown) (unknown) [place] % (Auto) 5.3 (units unknown) (unknown) (unknown) (no date) (unknown) (unknown) [place] % (Auto) (units unknown) (unknown) (unknown) (no date) (unknown) (unknown) Mother Diabetes mellitus (units unknown) (unknown) (unknown) (no date) (unknown) (unknown) Nasal Screen MRSA (PCR) Not detected (units unknown) (unknown) (unknown) (no date) (unknown) (unknown) Nasal Screen MRSA (PCR) (units unknown) (unknown) (unknown) (no date) (unknown) (unknown) Neut # (Auto) 2100 (units unknown) (unknown) (unknown) (no date) (unknown) (unknown) Neut # (Auto) (units unknown) (unknown) (unknown) (no date) (unknown) (unknown) Neut % (Auto) 60.7 (units unknown) (unknown) (unknown) (no date) (unknown) (unknown) Neut % (Auto) (units unknown) (unknown) (unknown) (no date) (unknown) (unknown) Obesity (units unknown) (unknown) (unknown) (no date) (unknown) (unknown) Objective (units unknown) (unknown) (unknown) (no date) (unknown) (unknown) Overweight (units unknown) (unknown) (unknown) (no date) (unknown) (unknown) Oxygen Delivery Method Room Air (units unknown) (unknown) (unknown) (no date) (unknown) (unknown) PFSH (units unknown) (unknown) (unknown) (no date) (unknown) (unknown) Patient stated that she used to be sober for about 18 months in the past but had (units unknown) (unknown) (unknown) (no date) (unknown) (unknown) Patient: Sarah Connors MR#: M (units unknown) (unknown) (unknown) (no date) (unknown) (unknown) Plt Count 116 L (units unknown) (unknown) (unknown) (no date) (unknown) (unknown) Plt Count (units unknown) (unknown) (unknown) (no date) (unknown) (unknown) Potassium 3.7 (units unknown) (unknown) (unknown) (no date) (unknown) (unknown) Potassium 4.2 (units unknown) (unknown) (unknown) (no date) (unknown) (unknown) Progress Note (units unknown) (unknown) (unknown) (no date) (unknown) (unknown) Provider: Vanesa Hall MD (units unknown) (unknown) (unknown) (no date) (unknown) (unknown) Pulse Oximetry 97 98 (units unknown) (unknown) (unknown) (no date) (unknown) (unknown) Pulse Oximetry 97 (units unknown) (unknown) (unknown) (no date) (unknown) (unknown) Pulse Oximetry 98 97 (units unknown) (unknown) (unknown) (no date) (unknown) (unknown) Pulse Oximetry 98 98 (units unknown) (unknown) (unknown) (no date) (unknown) (unknown) Pulse Rate 62 63 (units unknown) (unknown) (unknown) (no date) (unknown) (unknown) Pulse Rate 63 61 (units unknown) (unknown) (unknown) (no date) (unknown) (unknown) Pulse Rate 63 (units unknown) (unknown) (unknown) (no date) (unknown) (unknown) Pulse Rate 66 67 (units unknown) (unknown) (unknown) (no date) (unknown) (unknown) Pulse Rate 67 62 (units unknown) (unknown) (unknown) (no date) (unknown) (unknown) Pulse Rate 68 (units unknown) (unknown) (unknown) (no date) (unknown) (unknown) Pulse Rate 69 66 (units unknown) (unknown) (unknown) (no date) (unknown) (unknown) RBC 3.85 L (units unknown) (unknown) (unknown) (no date) (unknown) (unknown) RBC (units unknown) (unknown) (unknown) (no date) (unknown) (unknown) RDW 17.5 H (units unknown) (unknown) (unknown) (no date) (unknown) (unknown) RDW (units unknown) (unknown) (unknown) (no date) (unknown) (unknown) S/P myringotomy with insertion of tube (units unknown) (unknown) (unknown) (no date) (unknown) (unknown) (spontaneous vaginal delivery) (-09/05/18) (units unknown) (unknown) (unknown) (no date) (unknown) (unknown) Signed By: (units unknown) (unknown) (unknown) (no date) (unknown) (unknown) Smoker (units unknown) (unknown) (unknown) (no date) (unknown) (unknown) Smoking Status: Former smoker (units unknown) (unknown) (unknown) (no date) (unknown) (unknown) Social History (units unknown) (unknown) (unknown) (no date) (unknown) (unknown) Sodium 132 L (units unknown) (unknown) (unknown) (no date) (unknown) (unknown) Sodium 135 L (units unknown) (unknown) (unknown) (no date) (unknown) (unknown) Subjective (units unknown) (unknown) (unknown) (no date) (unknown) (unknown) Surgical History (units unknown) (unknown) (unknown) (no date) (unknown) (unknown) This is a 31 years old female with history of alcohol use disorder who presented (units unknown) (unknown) (unknown) (no date) (unknown) (unknown) Time Spent With Patient (units unknown) (unknown) (unknown) (no date) (unknown) (unknown) Total Bilirubin 0.7 (units unknown) (unknown) (unknown) (no date) (unknown) (unknown) Total Bilirubin 0.8 (units unknown) (unknown) (unknown) (no date) (unknown) (unknown) Total Protein 6.2 L (units unknown) (unknown) (unknown) (no date) (unknown) (unknown) Vital Signs (units unknown) (unknown) (unknown) (no date) (unknown) (unknown) WBC 3.5 L (units unknown) (unknown) (unknown) (no date) (unknown) (unknown) WBC (units unknown) (unknown) (unknown) (no date) (unknown) (unknown) [Embedded Image Not Available] (units unknown) (unknown) (unknown) (no date) (unknown) (unknown) a dose of oral cephalexin and now is on cipro IV BID.? Her initial work-up was (units unknown) (unknown) (unknown) (no date) (unknown) (unknown) alcohol intake: former (units unknown) (unknown) (unknown) (no date) (unknown) (unknown) answers. (units unknown) (unknown) (unknown) (no date) (unknown) (unknown) be severely agitated and restless, presented to ER asking for help with rehab (units unknown) (unknown) (unknown) (no date) (unknown) (unknown) but she was deemed t o be medically unstable for transfer to rehab.? Her CIWA (units unknown) (unknown) (unknown) (no date) (unknown) (unknown) current occupational exposures/hazards: Yes (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 with Pandemic ) (units unknown) (unknown) (unknown) (no date) (unknown) (unknown) drip due to need for continued sedation. 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 Yesterday, she was noted to (units unknown) (unknown) (unknown) (no date) (unknown) (unknown) notable for blood alcohol level of 338. ? She is admitted to ICU on Precedex (units unknown) (unknown) (unknown) (no date) (unknown) (unknown) number of children: 1 (units unknown) (unknown) (unknown) (no date) (unknown) (unknown) occupational status: employed (units unknown) (unknown) (unknown) (no date) (unknown) (unknown) relapsed due to a divorce with her per previous notes.? She states that (units unknown) (unknown) (unknown) (no date) (unknown) (unknown) score in the ED was as high as 20.? She was also found to have UTI and was given (units unknown) (unknown) (unknown) (no date) (unknown) (unknown) second hand exposure : No (growing up as a child - not currently) (units unknown) (unknown) (unknown) (no date) (unknown) (unknown) several visits to ER department in May 2022 for similar symptoms including (units unknown) (unknown) (unknown) (no date) (unknown) (unknown) she drinks as much a s 750 cc of vodka every day as documented.? She has had (units unknown) (unknown) (unknown) (no date) (unknown) (unknown) special renee needs: No (units unknown) (unknown) (unknown) (no date) (unknown) (unknown) substance use type: does not use (units unknown) (unknown) (unknown) (no date) (unknown) (unknown) to ED with acute alcohol intoxication with symptoms of alcohol withdrawal.? (units unknown) (unknown) (unknown) (no date) (unknown) (unknown) today; this time is exclusive of procedural time. (units unknown) (unknown) Result panel 2206 (unknown) (no date) (unknown) (unknown) No growth. (units unknown) (unknown) Result panel 2207 (unknown) (no date) (unknown) (unknown) (no value) (units unknown) (unknown) (unknown) (no date) (unknown) (unknown) (past 8 hours): (units unknown) (unknown) (unknown) (no date) (unknown) (unknown) - CIWA protocol and seizure precautions (units unknown) (unknown) (unknown) (no date) (unknown) (unknown) - She has a prescribed bottle of seroquel, which ED stated she was encouraged to (units unknown) (unknown) (unknown) (no date) (unknown) (unknown) - She is ordered for a librium tapor (units unknown) (unknown) (unknown) (no date) (unknown) (unknown) - She received multiple doses of oral ativan, IV was placed in the ED.? (units unknown) (unknown) (unknown) (no date) (unknown) (unknown) - She was administered a 1 time dose of cephalexin po in the ED (units unknown) (unknown) (unknown) (no date) (unknown) (unknown) - She was ordered fo r a one time dose of IV phenobarbitol 130 mg X 1 (units unknown) (unknown) (unknown) (no date) (unknown) (unknown) - She will be starte d on IV ceftriaxone 1 gram daily (units unknown) (unknown) (unknown) (no date) (unknown) (unknown) - currently in ICU o n precedex infusion (units unknown) (unknown) (unknown) (no date) (unknown) (unknown) [id number] (units unknown) (unknown) (unknown) (no date) (unknown) (unknown) 02:00 07/14/22 (units unknown) (unknown) (unknown) (no date) (unknown) (unknown) 02:08 (units unknown) (unknown) (unknown) (no date) (unknown) (unknown) 07/13/22 07/13/22 07/14/22 (units unknown) (unknown) (unknown) (no date) (unknown) (unknown) 07/14/22 08:20 (units unknown) (unknown) (unknown) (no date) (unknown) (unknown) 07/14/22 (units unknown) (unknown) (unknown) (no date) (unknown) (unknown) 03:00 07/14/22 (units unknown) (unknown) (unknown) (no date) (unknown) (unknown) 04:00 07/14/22 (units unknown) (unknown) (unknown) (no date) (unknown) (unknown) 04:00 (units unknown) (unknown) (unknown) (no date) (unknown) (unknown) 05:00 07/14/22 (units unknown) (unknown) (unknown) (no date) (unknown) (unknown) 05:00 (units unknown) (unknown) (unknown) (no date) (unknown) (unknown) 06:00 07/14/22 (units unknown) (unknown) (unknown) (no date) (unknown) (unknown) 06:28 (units unknown) (unknown) (unknown) (no date) (unknown) (unknown) 07:01 07/14/22 (units unknown) (unknown) (unknown) (no date) (unknown) (unknown) 07:52 (units unknown) (unknown) (unknown) (no date) (unknown) (unknown) 08:00 07/14/22 (units unknown) (unknown) (unknown) (no date) (unknown) (unknown) 08:20 (units unknown) (unknown) (unknown) (no date) (unknown) (unknown) 08:50 15:28 08:20 (units unknown) (unknown) (unknown) (no date) (unknown) (unknown) 09:00 07/14/22 (units unknown) (unknown) (unknown) (no date) (unknown) (unknown) 09:00 (units unknown) (unknown) (unknown) (no date) (unknown) (unknown) 09:12 (units unknown) (unknown) (unknown) (no date) (unknown) (unknown) ALT 17 (units unknown) (unknown) (unknown) (no date) (unknown) (unknown) ALT 19 (units unknown) (unknown) (unknown) (no date) (unknown) (unknown) AST 45 H (units unknown) (unknown) (unknown) (no date) (unknown) (unknown) AST 52 H (units unknown) (unknown) (unknown) (no date) (unknown) (unknown) Abd: soft, non-tender, normoactive BTs (units unknown) (unknown) (unknown) (no date) (unknown) (unknown) Acute alcohol intoxication and withdrawal, present on admission (units unknown) (unknown) (unknown) (no date) (unknown) (unknown) Age/Sex: 31 / F (units unknown) (unknown) (unknown) (no date) (unknown) (unknown) Albumin 3.5 (units unknown) (unknown) (unknown) (no date) (unknown) (unknown) Albumin/Globulin Ratio 1.3 (units unknown) (unknown) (unknown) (no date) (unknown) (unknown) Alcohol withdrawal delirium, acute, hyperactive (units unknown) (unknown) (unknown) (no date) (unknown) (unknown) Alcoholism (units unknown) (unknown) (unknown) (no date) (unknown) (unknown) Alkaline Phosphatase 68 (units unknown) (unknown) (unknown) (no date) (unknown) (unknown) Alkaline Phosphatase 75 (units unknown) (unknown) (unknown) (no date) (unknown) (unknown) Anemia (-2018) (units unknown) (unknown) (unknown) (no date) (unknown) (unknown) Assessment + Plan narrative: (units unknown) (unknown) (unknown) (no date) (unknown) (unknown) Assessment + Plan (units unknown) (unknown) (unknown) (no date) (unknown) (unknown) BUN 11 (units unknown) (unknown) (unknown) (no date) (unknown) (unknown) BUN 5 L (units unknown) (unknown) (unknown) (no date) (unknown) (unknown) BUN/Creatinine Ratio 16.4 (units unknown) (unknown) (unknown) (no date) (unknown) (unknown) BUN/Creatinine Ratio 7.9 (units unknown) (unknown) (unknown) (no date) (unknown) (unknown) Baso # (Auto) 0 (units unknown) (unknown) (unknown) (no date) (unknown) (unknown) Baso # (Auto) (units unknown) (unknown) (unknown) (no date) (unknown) (unknown) Baso % (Auto) 0.8 (units unknown) (unknown) (unknown) (no date) (unknown) (unknown) Baso % (Auto) (units unknown) (unknown) (unknown) (no date) (unknown) (unknown) Blood Pressure 105/75 (units unknown) (unknown) (unknown) (no date) (unknown) (unknown) Blood Pressure 107/75 (units unknown) (unknown) (unknown) (no date) (unknown) (unknown) Blood Pressure 109/7 4 110/75 (units unknown) (unknown) (unknown) (no date) (unknown) (unknown) Blood Pressure 110/7 9 112/63 (units unknown) (unknown) (unknown) (no date) (unknown) (unknown) Blood Pressure 113/81 (units unknown) (unknown) (unknown) (no date) (unknown) (unknown) Blood Pressure 114/78 (units unknown) (unknown) (unknown) (no date) (unknown) (unknown) Blood Pressure (units unknown) (unknown) (unknown) (no date) (unknown) (unknown) CV: heart sounds normal, no murmur or rubs (units unknown) (unknown) (unknown) (no date) (unknown) (unknown) Calcium 8.1 L (units unknown) (unknown) (unknown) (no date) (unknown) (unknown) Calcium 8.5 (units unknown) (unknown) (unknown) (no date) (unknown) (unknown) Carbon Dioxide 27 (units unknown) (unknown) (unknown) (no date) (unknown) (unknown) Carbon Dioxide 28 (units unknown) (unknown) (unknown) (no date) (unknown) (unknown) Chloride 100 (units unknown) (unknown) (unknown) (no date) (unknown) (unknown) Chloride 101 (units unknown) (unknown) (unknown) (no date) (unknown) (unknown) Code status: patient unable to state, presumed to be full code. (units unknown) (unknown) (unknown) (no date) (unknown) (unknown) Consultants? None (units unknown) (unknown) (unknown) (no date) (unknown) (unknown) Creatinine 0.63 (units unknown) (unknown) (unknown) (no date) (unknown) (unknown) Creatinine 0.67 (units unknown) (unknown) (unknown) (no date) (unknown) (unknown) Critical Care time: (units unknown) (unknown) (unknown) (no date) (unknown) (unknown) : 1990 Acct:[id number] (units unknown) (unknown) (unknown) (no date) (unknown) (unknown) Date of Service: 07/13/22 (units unknown) (unknown) (unknown) (no date) (unknown) (unknown) Deep Vein Thrombosis/Pulmonary Embolism Present on Admission: No (units unknown) (unknown) (unknown) (no date) (unknown) (unknown) Discussion of results, plan of care with independent HCP/other: ED provider (units unknown) (unknown) (unknown) (no date) (unknown) (unknown) Dispo: home vs rehab (units unknown) (unknown) (unknown) (no date) (unknown) (unknown) Eos # (Auto) 100 (units unknown) (unknown) (unknown) (no date) (unknown) (unknown) Eos # (Auto) (units unknown) (unknown) (unknown) (no date) (unknown) (unknown) Eos % (Auto) 2.4 (units unknown) (unknown) (unknown) (no date) (unknown) (unknown) Eos % (Auto) (units unknown) (unknown) (unknown) (no date) (unknown) (unknown) Estimated GFR > 60 (units unknown) (unknown) (unknown) (no date) (unknown) (unknown) Exam Narrative: (units unknown) (unknown) (unknown) (no date) (unknown) (unknown) Exam (units unknown) (unknown) (unknown) (no date) (unknown) (unknown) Extremities: moves all 4 extremities (units unknown) (unknown) (unknown) (no date) (unknown) (unknown) FEN: IV fluids: NS a t 100 ml/hour, diet: general, labs: CBC, C/BMP, liver (units unknown) (unknown) (unknown) (no date) (unknown) (unknown) Family History (units unknown) (unknown) (unknown) (no date) (unknown) (unknown) Family/Other Alcoholism (units unknown) (unknown) (unknown) (no date) (unknown) (unknown) Family/Other Diabete s mellitus (units unknown) (unknown) (unknown) (no date) (unknown) (unknown) Father Alcoholism (units unknown) (unknown) (unknown) (no date) (unknown) (unknown) Gen: Arousable, female, NAD (units unknown) (unknown) (unknown) (no date) (unknown) (unknown) Globulin 2.7 (units unknown) (unknown) (unknown) (no date) (unknown) (unknown) Glucose 138 H (units unknown) (unknown) (unknown) (no date) (unknown) (unknown) Glucose 95 (units unknown) (unknown) (unknown) (no date) (unknown) (unknown) Grandfather Smoker (units unknown) (unknown) (unknown) (no date) (unknown) (unknown) Grandfather Unknown whether patient has any health problems (units unknown) (unknown) (unknown) (no date) (unknown) (unknown) Grandmother Diabetes mellitus (units unknown) (unknown) (unknown) (no date) (unknown) (unknown) Grandmother Hypoglycemia (units unknown) (unknown) (unknown) (no date) (unknown) (unknown) H/O dilation and curettage (-12/14/16) (units unknown) (unknown) (unknown) (no date) (unknown) (unknown) H/O wisdom tooth extraction () (units unknown) (unknown) (unknown) (no date) (unknown) (unknown) HEENT: normocephalic , atraumatic, conjunctiva clear, pinpoint pupils, sclera (units unknown) (unknown) (unknown) (no date) (unknown) (unknown) Hct 30.0 L (units unknown) (unknown) (unknown) (no date) (unknown) (unknown) Hct (units unknown) (unknown) (unknown) (no date) (unknown) (unknown) Hgb 10.2 L (units unknown) (unknown) (unknown) (no date) (unknown) (unknown) Hgb (units unknown) (unknown) (unknown) (no date) (unknown) (unknown) I confirm the patient?s Advance Care Plan is present, Code status is documented, (units unknown) (unknown) (unknown) (no date) (unknown) (unknown) I spent a total of [ ] minutes of critical care time on this patient's care (units unknown) (unknown) (unknown) (no date) (unknown) (unknown) Insomnia (units unknown) (unknown) (unknown) (no date) (unknown) (unknown) Interval history: (units unknown) (unknown) (unknown) (no date) (unknown) (unknown) [address] [address] (units unknown) (unknown) (unknown) (no date) (unknown) (unknown) Laboratory Results - last 24 hr (units unknown) (unknown) (unknown) (no date) (unknown) (unknown) Labs (units unknown) (unknown) (unknown) (no date) (unknown) (unknown) Labs: (units unknown) (unknown) (unknown) (no date) (unknown) (unknown) Lymph # (Auto) 1100 (units unknown) (unknown) (unknown) (no date) (unknown) (unknown) Lymph # (Auto) (units unknown) (unknown) (unknown) (no date) (unknown) (unknown) Lymph % (Auto) 30.8 (units unknown) (unknown) (unknown) (no date) (unknown) (unknown) Lymph % (Auto) (units unknown) (unknown) (unknown) (no date) (unknown) (unknown) MCH 26.5 (units unknown) (unknown) (unknown) (no date) (unknown) (unknown) MCH (units unknown) (unknown) (unknown) (no date) (unknown) (unknown) MCHC 34.1 (units unknown) (unknown) (unknown) (no date) (unknown) (unknown) MCHC (units unknown) (unknown) (unknown) (no date) (unknown) (unknown) MCV 77.8 L (units unknown) (unknown) (unknown) (no date) (unknown) (unknown) MCV (units unknown) (unknown) (unknown) (no date) (unknown) (unknown) MIPS - Admit (units unknown) (unknown) (unknown) (no date) (unknown) (unknown) MIPS - DC (units unknown) (unknown) (unknown) (no date) (unknown) (unknown) Magnesium 1.4 L (units unknown) (unknown) (unknown) (no date) (unknown) (unknown) Magnesium 1.9 (units unknown) (unknown) (unknown) (no date) (unknown) (unknown) Medical History (Updated 07/13/22 @ 11:47 by Gerardo Mccormick MD) (units unknown) (unknown) (unknown) (no date) (unknown) (unknown) Menometrorrhagia (units unknown) (unknown) (unknown) (no date) (unknown) (unknown) [place] # (Auto) 200 (units unknown) (unknown) (unknown) (no date) (unknown) (unknown) [place] # (Auto) (units unknown) (unknown) (unknown) (no date) (unknown) (unknown) [place] % (Auto) 5.3 (units unknown) (unknown) (unknown) (no date) (unknown) (unknown) [place] % (Auto) (units unknown) (unknown) (unknown) (no date) (unknown) (unknown) Mother Diabetes mellitus (units unknown) (unknown) (unknown) (no date) (unknown) (unknown) Narrative (units unknown) (unknown) (unknown) (no date) (unknown) (unknown) Nasal Screen MRSA (PCR) Not detected (units unknown) (unknown) (unknown) (no date) (unknown) (unknown) Nasal Screen MRSA (PCR) (units unknown) (unknown) (unknown) (no date) (unknown) (unknown) Neck: supple, full ROM, no JVD, trachea is midline (units unknown) (unknown) (unknown) (no date) (unknown) (unknown) Neuro: very lethargi c and unable to hold a meaningful conversation, not (units unknown) (unknown) (unknown) (no date) (unknown) (unknown) Neut # (Auto) 2100 (units unknown) (unknown) (unknown) (no date) (unknown) (unknown) Neut # (Auto) (units unknown) (unknown) (unknown) (no date) (unknown) (unknown) Neut % (Auto) 60.7 (units unknown) (unknown) (unknown) (no date) (unknown) (unknown) Neut % (Auto) (units unknown) (unknown) (unknown) (no date) (unknown) (unknown) Obesity (units unknown) (unknown) (unknown) (no date) (unknown) (unknown) Objective (units unknown) (unknown) (unknown) (no date) (unknown) (unknown) Other independent historians: none (units unknown) (unknown) (unknown) (no date) (unknown) (unknown) Overweight (units unknown) (unknown) (unknown) (no date) (unknown) (unknown) Oxygen Delivery Method Room Air (units unknown) (unknown) (unknown) (no date) (unknown) (unknown) PFSH (units unknown) (unknown) (unknown) (no date) (unknown) (unknown) Patient is admitted to the inpatient ICU service due to the severity of disease, (units unknown) (unknown) (unknown) (no date) (unknown) (unknown) Patient stated that she used to be sober for about 18 months in the past but had (units unknown) (unknown) (unknown) (no date) (unknown) (unknown) Patient: Sarah Connors MR#: M (units unknown) (unknown) (unknown) (no date) (unknown) (unknown) Plt Count 116 L (units unknown) (unknown) (unknown) (no date) (unknown) (unknown) Plt Count (units unknown) (unknown) (unknown) (no date) (unknown) (unknown) Potassium 3.7 (units unknown) (unknown) (unknown) (no date) (unknown) (unknown) Potassium 4.2 (units unknown) (unknown) (unknown) (no date) (unknown) (unknown) Progress Note (units unknown) (unknown) (unknown) (no date) (unknown) (unknown) Provider: Vanesa Hall MD (units unknown) (unknown) (unknown) (no date) (unknown) (unknown) Psyche: appears calm , unable to assess fully (units unknown) (unknown) (unknown) (no date) (unknown) (unknown) Pulse Oximetry 97 98 (units unknown) (unknown) (unknown) (no date) (unknown) (unknown) Pulse Oximetry 97 (units unknown) (unknown) (unknown) (no date) (unknown) (unknown) Pulse Oximetry 98 97 (units unknown) (unknown) (unknown) (no date) (unknown) (unknown) Pulse Oximetry 98 98 (units unknown) (unknown) (unknown) (no date) (unknown) (unknown) Pulse Rate 62 63 (units unknown) (unknown) (unknown) (no date) (unknown) (unknown) Pulse Rate 63 61 (units unknown) (unknown) (unknown) (no date) (unknown) (unknown) Pulse Rate 63 (units unknown) (unknown) (unknown) (no date) (unknown) (unknown) Pulse Rate 66 67 (units unknown) (unknown) (unknown) (no date) (unknown) (unknown) Pulse Rate 67 62 (units unknown) (unknown) (unknown) (no date) (unknown) (unknown) Pulse Rate 68 (units unknown) (unknown) (unknown) (no date) (unknown) (unknown) Pulse Rate 69 66 (units unknown) (unknown) (unknown) (no date) (unknown) (unknown) RBC 3.85 L (units unknown) (unknown) (unknown) (no date) (unknown) (unknown) RBC (units unknown) (unknown) (unknown) (no date) (unknown) (unknown) RDW 17.5 H (units unknown) (unknown) (unknown) (no date) (unknown) (unknown) RDW (units unknown) (unknown) (unknown) (no date) (unknown) (unknown) Resp: Lungs CTA, non-labored breathing (units unknown) (unknown) (unknown) (no date) (unknown) (unknown) Reviewed outside records: prior ED records (units unknown) (unknown) (unknown) (no date) (unknown) (unknown) S/P myringotomy with insertion of tube (units unknown) (unknown) (unknown) (no date) (unknown) (unknown) SCDs (units unknown) (unknown) (unknown) (no date) (unknown) (unknown) (spontaneous vaginal delivery) (-09/05/18) (units unknown) (unknown) (unknown) (no date) (unknown) (unknown) Signed By: (units unknown) (unknown) (unknown) (no date) (unknown) (unknown) Skin: no lesions or rashes, dry and intact (units unknown) (unknown) (unknown) (no date) (unknown) (unknown) Smoker (units unknown) (unknown) (unknown) (no date) (unknown) (unknown) Smoking Status: Former smoker (units unknown) (unknown) (unknown) (no date) (unknown) (unknown) Social History (units unknown) (unknown) (unknown) (no date) (unknown) (unknown) Social determinants of health: history of alcohol abuse, has pre-school children (units unknown) (unknown) (unknown) (no date) (unknown) (unknown) Sodium 132 L (units unknown) (unknown) (unknown) (no date) (unknown) (unknown) Sodium 135 L (units unknown) (unknown) (unknown) (no date) (unknown) (unknown) Subjective (units unknown) (unknown) (unknown) (no date) (unknown) (unknown) Surgical History (units unknown) (unknown) (unknown) (no date) (unknown) (unknown) Surrogate decision maker is in patient?s record: No, patient unable to (units unknown) (unknown) (unknown) (no date) (unknown) (unknown) The patient has current or prior documentation of left ventricular ejection (units unknown) (unknown) (unknown) (no date) (unknown) (unknown) This is a 31 years old female with history of alcohol use disorder who presented (units unknown) (unknown) (unknown) (no date) (unknown) (unknown) Time Spent With Patient (units unknown) (unknown) (unknown) (no date) (unknown) (unknown) Total Bilirubin 0.7 (units unknown) (unknown) (unknown) (no date) (unknown) (unknown) Total Bilirubin 0.8 (units unknown) (unknown) (unknown) (no date) (unknown) (unknown) Total Protein 6.2 L (units unknown) (unknown) (unknown) (no date) (unknown) (unknown) UTI, acute but asymptomatic (units unknown) (unknown) (unknown) (no date) (unknown) (unknown) VTE Prophylaxis: Wells risk score? X Enoxaparin 40 mg subQ once daily? Bilateral (units unknown) (unknown) (unknown) (no date) (unknown) (unknown) VTE (units unknown) (unknown) (unknown) (no date) (unknown) (unknown) Vital Signs (units unknown) (unknown) (unknown) (no date) (unknown) (unknown) WBC 3.5 L (units unknown) (unknown) (unknown) (no date) (unknown) (unknown) WBC (units unknown) (unknown) (unknown) (no date) (unknown) (unknown) [Embedded Image Not Available] (units unknown) (unknown) (unknown) (no date) (unknown) (unknown) [X] I have utilized all available immediate resources to obtain, update, or (units unknown) (unknown) (unknown) (no date) (unknown) (unknown) a dose of oral cephalexin and now is on cipro IV BID.? Her initial work-up was (units unknown) (unknown) (unknown) (no date) (unknown) (unknown) alcohol intake: former (units unknown) (unknown) (unknown) (no date) (unknown) (unknown) answers. (units unknown) (unknown) (unknown) (no date) (unknown) (unknown) articulate preference. (units unknown) (unknown) (unknown) (no date) (unknown) (unknown) at home. (units unknown) (unknown) (unknown) (no date) (unknown) (unknown) be severely agitated and restless, presented to ER asking for help with rehab (units unknown) (unknown) (unknown) (no date) (unknown) (unknown) but she was deemed t o be medically unstable for transfer to rehab.? Her CIWA (units unknown) (unknown) (unknown) (no date) (unknown) (unknown) current occupational exposures/hazards: Yes (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 with Pandemic ) (units unknown) (unknown) (unknown) (no date) (unknown) (unknown) drip due to need for continued sedation. 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 (units unknown) (unknown) (unknown) (no date) (unknown) (unknown) most recent visit with blood alcohol level in 300s.? Yesterday, she was noted to (units unknown) (unknown) (unknown) (no date) (unknown) (unknown) non-icteric, oral mucosa pink and moist (units unknown) (unknown) (unknown) (no date) (unknown) (unknown) notable for blood alcohol level of 338. ? She is admitted to ICU on Precedex (units unknown) (unknown) (unknown) (no date) (unknown) (unknown) number of children: 1 (units unknown) (unknown) (unknown) (no date) (unknown) (unknown) occupational status: employed (units unknown) (unknown) (unknown) (no date) (unknown) (unknown) relapsed due to a divorce with her per previous notes.? She states that (units unknown) (unknown) (unknown) (no date) (unknown) (unknown) responding to questions due to falling back to sleep (units unknown) (unknown) (unknown) (no date) (unknown) (unknown) review of the patient's current medications (units unknown) (unknown) (unknown) (no date) (unknown) (unknown) risks of further disease progression and this stay is expected to exceed 2 (units unknown) (unknown) (unknown) (no date) (unknown) (unknown) score in the ED was as high as 20.? She was also found to have UTI and was given (units unknown) (unknown) (unknown) (no date) (unknown) (unknown) second hand exposure : No (growing up as a child - not currently) (units unknown) (unknown) (unknown) (no date) (unknown) (unknown) several visits to ER department in May 2022 for similar symptoms including (units unknown) (unknown) (unknown) (no date) (unknown) (unknown) she drinks as much a s 750 cc of vodka every day as documented.? She has had (units unknown) (unknown) (unknown) (no date) (unknown) (unknown) special renee needs: No (units unknown) (unknown) (unknown) (no date) (unknown) (unknown) substance use type: does not use (units unknown) (unknown) (unknown) (no date) (unknown) (unknown) take, unknown if she took. Dose is 300 mg to be taken at bedtime. (units unknown) (unknown) (unknown) (no date) (unknown) (unknown) to ED with acute alcohol intoxication with symptoms of alcohol withdrawal.? (units unknown) (unknown) (unknown) (no date) (unknown) (unknown) today; this time is exclusive of procedural time. (units unknown) (unknown) (unknown) (no date) (unknown) (unknown) ventricular systolic function.: No (units unknown) (unknown) Result panel 2208 (unknown) (no date) (unknown) (unknown) (no value) (units unknown) (unknown) (unknown) (no date) (unknown) (unknown) (past 8 hours): (units unknown) (unknown) (unknown) (no date) (unknown) (unknown) - CIWA protocol and seizure precautions (units unknown) (unknown) (unknown) (no date) (unknown) (unknown) - She has a prescribed bottle of seroquel, which ED stated she was encouraged to (units unknown) (unknown) (unknown) (no date) (unknown) (unknown) - She is now on Cipr o 400 mg IV every 12 hours (units unknown) (unknown) (unknown) (no date) (unknown) (unknown) - She is ordered for a librium tapor (units unknown) (unknown) (unknown) (no date) (unknown) (unknown) - She received multiple doses of oral ativan, IV was placed in the ED.? (units unknown) (unknown) (unknown) (no date) (unknown) (unknown) - She was administered a 1 time dose of cephalexin po in the ED (units unknown) (unknown) (unknown) (no date) (unknown) (unknown) - She was ordered fo r a one time dose of IV phenobarbitol 130 mg X 1 (units unknown) (unknown) (unknown) (no date) (unknown) (unknown) - currently in ICU o n precedex infusion (units unknown) (unknown) (unknown) (no date) (unknown) (unknown) [id number] (units unknown) (unknown) (unknown) (no date) (unknown) (unknown) 02:00 07/14/22 (units unknown) (unknown) (unknown) (no date) (unknown) (unknown) 02:08 (units unknown) (unknown) (unknown) (no date) (unknown) (unknown) 07/13/22 07/13/22 07/14/22 (units unknown) (unknown) (unknown) (no date) (unknown) (unknown) 07/14/22 08:20 (units unknown) (unknown) (unknown) (no date) (unknown) (unknown) 07/14/22 0927 (units unknown) (unknown) (unknown) (no date) (unknown) (unknown) 07/14/22 (units unknown) (unknown) (unknown) (no date) (unknown) (unknown) 03:00 07/14/22 (units unknown) (unknown) (unknown) (no date) (unknown) (unknown) 04:00 07/14/22 (units unknown) (unknown) (unknown) (no date) (unknown) (unknown) 04:00 (units unknown) (unknown) (unknown) (no date) (unknown) (unknown) 05:00 07/14/22 (units unknown) (unknown) (unknown) (no date) (unknown) (unknown) 05:00 (units unknown) (unknown) (unknown) (no date) (unknown) (unknown) 06:00 07/14/22 (units unknown) (unknown) (unknown) (no date) (unknown) (unknown) 06:28 (units unknown) (unknown) (unknown) (no date) (unknown) (unknown) 07:01 07/14/22 (units unknown) (unknown) (unknown) (no date) (unknown) (unknown) 07:52 (units unknown) (unknown) (unknown) (no date) (unknown) (unknown) 08:00 07/14/22 (units unknown) (unknown) (unknown) (no date) (unknown) (unknown) 08:20 (units unknown) (unknown) (unknown) (no date) (unknown) (unknown) 08:50 15:28 08:20 (units unknown) (unknown) (unknown) (no date) (unknown) (unknown) 09:00 07/14/22 (units unknown) (unknown) (unknown) (no date) (unknown) (unknown) 09:00 (units unknown) (unknown) (unknown) (no date) (unknown) (unknown) 09:12 (units unknown) (unknown) (unknown) (no date) (unknown) (unknown) ALT 17 (units unknown) (unknown) (unknown) (no date) (unknown) (unknown) ALT 19 (units unknown) (unknown) (unknown) (no date) (unknown) (unknown) AST 45 H (units unknown) (unknown) (unknown) (no date) (unknown) (unknown) AST 52 H (units unknown) (unknown) (unknown) (no date) (unknown) (unknown) Abd: soft, non-tender, normoactive BTs (units unknown) (unknown) (unknown) (no date) (unknown) (unknown) Acute alcohol intoxication and withdrawal, present on admission (units unknown) (unknown) (unknown) (no date) (unknown) (unknown) Age/Sex: 31 / F (units unknown) (unknown) (unknown) (no date) (unknown) (unknown) Albumin 3.5 (units unknown) (unknown) (unknown) (no date) (unknown) (unknown) Albumin/Globulin Ratio 1.3 (units unknown) (unknown) (unknown) (no date) (unknown) (unknown) Alcohol withdrawal delirium, acute, hyperactive (units unknown) (unknown) (unknown) (no date) (unknown) (unknown) Alcoholism (units unknown) (unknown) (unknown) (no date) (unknown) (unknown) Alkaline Phosphatase 68 (units unknown) (unknown) (unknown) (no date) (unknown) (unknown) Alkaline Phosphatase 75 (units unknown) (unknown) (unknown) (no date) (unknown) (unknown) Anemia (-2018) (units unknown) (unknown) (unknown) (no date) (unknown) (unknown) Assessment + Plan narrative: (units unknown) (unknown) (unknown) (no date) (unknown) (unknown) Assessment + Plan (units unknown) (unknown) (unknown) (no date) (unknown) (unknown) BUN 11 (units unknown) (unknown) (unknown) (no date) (unknown) (unknown) BUN 5 L (units unknown) (unknown) (unknown) (no date) (unknown) (unknown) BUN/Creatinine Ratio 16.4 (units unknown) (unknown) (unknown) (no date) (unknown) (unknown) BUN/Creatinine Ratio 7.9 (units unknown) (unknown) (unknown) (no date) (unknown) (unknown) Baso # (Auto) 0 (units unknown) (unknown) (unknown) (no date) (unknown) (unknown) Baso # (Auto) (units unknown) (unknown) (unknown) (no date) (unknown) (unknown) Baso % (Auto) 0.8 (units unknown) (unknown) (unknown) (no date) (unknown) (unknown) Baso % (Auto) (units unknown) (unknown) (unknown) (no date) (unknown) (unknown) Blood Pressure 105/75 (units unknown) (unknown) (unknown) (no date) (unknown) (unknown) Blood Pressure 107/75 (units unknown) (unknown) (unknown) (no date) (unknown) (unknown) Blood Pressure 109/7 4 110/75 (units unknown) (unknown) (unknown) (no date) (unknown) (unknown) Blood Pressure 110/7 9 112/63 (units unknown) (unknown) (unknown) (no date) (unknown) (unknown) Blood Pressure 113/81 (units unknown) (unknown) (unknown) (no date) (unknown) (unknown) Blood Pressure 114/78 (units unknown) (unknown) (unknown) (no date) (unknown) (unknown) Blood Pressure (units unknown) (unknown) (unknown) (no date) (unknown) (unknown) CV: heart sounds normal, no murmur or rubs (units unknown) (unknown) (unknown) (no date) (unknown) (unknown) Calcium 8.1 L (units unknown) (unknown) (unknown) (no date) (unknown) (unknown) Calcium 8.5 (units unknown) (unknown) (unknown) (no date) (unknown) (unknown) Carbon Dioxide 27 (units unknown) (unknown) (unknown) (no date) (unknown) (unknown) Carbon Dioxide 28 (units unknown) (unknown) (unknown) (no date) (unknown) (unknown) Chloride 100 (units unknown) (unknown) (unknown) (no date) (unknown) (unknown) Chloride 101 (units unknown) (unknown) (unknown) (no date) (unknown) (unknown) Code status is documented, Surrogate decision maker is in patient?s record: No, (units unknown) (unknown) (unknown) (no date) (unknown) (unknown) Code status: patient unable to state, presumed to be full code. (units unknown) (unknown) (unknown) (no date) (unknown) (unknown) Creatinine 0.63 (units unknown) (unknown) (unknown) (no date) (unknown) (unknown) Creatinine 0.67 (units unknown) (unknown) (unknown) (no date) (unknown) (unknown) Critical Care time: (units unknown) (unknown) (unknown) (no date) (unknown) (unknown) : 1990 Acct:[id number] (units unknown) (unknown) (unknown) (no date) (unknown) (unknown) Date of Service: 07/13/22 (units unknown) (unknown) (unknown) (no date) (unknown) (unknown) Dispo: home vs rehab (units unknown) (unknown) (unknown) (no date) (unknown) (unknown) Eos # (Auto) 100 (units unknown) (unknown) (unknown) (no date) (unknown) (unknown) Eos # (Auto) (units unknown) (unknown) (unknown) (no date) (unknown) (unknown) Eos % (Auto) 2.4 (units unknown) (unknown) (unknown) (no date) (unknown) (unknown) Eos % (Auto) (units unknown) (unknown) (unknown) (no date) (unknown) (unknown) Estimated GFR > 60 (units unknown) (unknown) (unknown) (no date) (unknown) (unknown) Exam Narrative: (units unknown) (unknown) (unknown) (no date) (unknown) (unknown) Exam (units unknown) (unknown) (unknown) (no date) (unknown) (unknown) Extremities: moves all 4 extremities (units unknown) (unknown) (unknown) (no date) (unknown) (unknown) Family History (units unknown) (unknown) (unknown) (no date) (unknown) (unknown) Family/Other Alcoholism (units unknown) (unknown) (unknown) (no date) (unknown) (unknown) Family/Other Diabete s mellitus (units unknown) (unknown) (unknown) (no date) (unknown) (unknown) Father Alcoholism (units unknown) (unknown) (unknown) (no date) (unknown) (unknown) Follow labs and clinically. (units unknown) (unknown) (unknown) (no date) (unknown) (unknown) Gen: Arousable, female, NAD (units unknown) (unknown) (unknown) (no date) (unknown) (unknown) Globulin 2.7 (units unknown) (unknown) (unknown) (no date) (unknown) (unknown) Glucose 138 H (units unknown) (unknown) (unknown) (no date) (unknown) (unknown) Glucose 95 (units unknown) (unknown) (unknown) (no date) (unknown) (unknown) Grandfather Smoker (units unknown) (unknown) (unknown) (no date) (unknown) (unknown) Grandfather Unknown whether patient has any health problems (units unknown) (unknown) (unknown) (no date) (unknown) (unknown) Grandmother Diabetes mellitus (units unknown) (unknown) (unknown) (no date) (unknown) (unknown) Grandmother Hypoglycemia (units unknown) (unknown) (unknown) (no date) (unknown) (unknown) H/O dilation and curettage (-12/14/16) (units unknown) (unknown) (unknown) (no date) (unknown) (unknown) H/O wisdom tooth extraction () (units unknown) (unknown) (unknown) (no date) (unknown) (unknown) HEENT: normocephalic , atraumatic, conjunctiva clear, pinpoint pupils, sclera (units unknown) (unknown) (unknown) (no date) (unknown) (unknown) Hct 30.0 L (units unknown) (unknown) (unknown) (no date) (unknown) (unknown) Hct (units unknown) (unknown) (unknown) (no date) (unknown) (unknown) Hgb 10.2 L (units unknown) (unknown) (unknown) (no date) (unknown) (unknown) Hgb (units unknown) (unknown) (unknown) (no date) (unknown) (unknown) I spent a total of [ ] minutes of critical care time on this patient's care (units unknown) (unknown) (unknown) (no date) (unknown) (unknown) Insomnia (units unknown) (unknown) (unknown) (no date) (unknown) (unknown) Interval history: (units unknown) (unknown) (unknown) (no date) (unknown) (unknown) [address] [address] (units unknown) (unknown) (unknown) (no date) (unknown) (unknown) Laboratory Results - last 24 hr (units unknown) (unknown) (unknown) (no date) (unknown) (unknown) Labs (units unknown) (unknown) (unknown) (no date) (unknown) (unknown) Labs: (units unknown) (unknown) (unknown) (no date) (unknown) (unknown) Lymph # (Auto) 1100 (units unknown) (unknown) (unknown) (no date) (unknown) (unknown) Lymph # (Auto) (units unknown) (unknown) (unknown) (no date) (unknown) (unknown) Lymph % (Auto) 30.8 (units unknown) (unknown) (unknown) (no date) (unknown) (unknown) Lymph % (Auto) (units unknown) (unknown) (unknown) (no date) (unknown) (unknown) MCH 26.5 (units unknown) (unknown) (unknown) (no date) (unknown) (unknown) MCH (units unknown) (unknown) (unknown) (no date) (unknown) (unknown) MCHC 34.1 (units unknown) (unknown) (unknown) (no date) (unknown) (unknown) MCHC (units unknown) (unknown) (unknown) (no date) (unknown) (unknown) MCV 77.8 L (units unknown) (unknown) (unknown) (no date) (unknown) (unknown) MCV (units unknown) (unknown) (unknown) (no date) (unknown) (unknown) Magnesium 1.4 L (units unknown) (unknown) (unknown) (no date) (unknown) (unknown) Magnesium 1.9 (units unknown) (unknown) (unknown) (no date) (unknown) (unknown) Medical History (Updated 07/13/22 @ 11:47 by Gerardo Mccormick MD) (units unknown) (unknown) (unknown) (no date) (unknown) (unknown) Menometrorrhagia (units unknown) (unknown) (unknown) (no date) (unknown) (unknown) [place] # (Auto) 200 (units unknown) (unknown) (unknown) (no date) (unknown) (unknown) [place] # (Auto) (units unknown) (unknown) (unknown) (no date) (unknown) (unknown) [place] % (Auto) 5.3 (units unknown) (unknown) (unknown) (no date) (unknown) (unknown) [place] % (Auto) (units unknown) (unknown) (unknown) (no date) (unknown) (unknown) Mother Diabetes mellitus (units unknown) (unknown) (unknown) (no date) (unknown) (unknown) Narrative (units unknown) (unknown) (unknown) (no date) (unknown) (unknown) Nasal Screen MRSA (PCR) Not detected (units unknown) (unknown) (unknown) (no date) (unknown) (unknown) Nasal Screen MRSA (PCR) (units unknown) (unknown) (unknown) (no date) (unknown) (unknown) Neck: supple, full ROM, no JVD, trachea is midline (units unknown) (unknown) (unknown) (no date) (unknown) (unknown) Neuro: very lethargi c and unable to hold a meaningful conversation, not (units unknown) (unknown) (unknown) (no date) (unknown) (unknown) Neut # (Auto) 2100 (units unknown) (unknown) (unknown) (no date) (unknown) (unknown) Neut # (Auto) (units unknown) (unknown) (unknown) (no date) (unknown) (unknown) Neut % (Auto) 60.7 (units unknown) (unknown) (unknown) (no date) (unknown) (unknown) Neut % (Auto) (units unknown) (unknown) (unknown) (no date) (unknown) (unknown) Obesity (units unknown) (unknown) (unknown) (no date) (unknown) (unknown) Objective (units unknown) (unknown) (unknown) (no date) (unknown) (unknown) Overweight (units unknown) (unknown) (unknown) (no date) (unknown) (unknown) Oxygen Delivery Method Room Air (units unknown) (unknown) (unknown) (no date) (unknown) (unknown) PFSH (units unknown) (unknown) (unknown) (no date) (unknown) (unknown) Patient stated that she used to be sober for about 18 months in the past but had (units unknown) (unknown) (unknown) (no date) (unknown) (unknown) Patient: Sarah Connors MR#: M (units unknown) (unknown) (unknown) (no date) (unknown) (unknown) Plt Count 116 L (units unknown) (unknown) (unknown) (no date) (unknown) (unknown) Plt Count (units unknown) (unknown) (unknown) (no date) (unknown) (unknown) Potassium 3.7 (units unknown) (unknown) (unknown) (no date) (unknown) (unknown) Potassium 4.2 (units unknown) (unknown) (unknown) (no date) (unknown) (unknown) Progress Note (units unknown) (unknown) (unknown) (no date) (unknown) (unknown) Provider: Vanesa Hall MD (units unknown) (unknown) (unknown) (no date) (unknown) (unknown) Psyche: appears calm , unable to assess fully (units unknown) (unknown) (unknown) (no date) (unknown) (unknown) Pulse Oximetry 97 98 (units unknown) (unknown) (unknown) (no date) (unknown) (unknown) Pulse Oximetry 97 (units unknown) (unknown) (unknown) (no date) (unknown) (unknown) Pulse Oximetry 98 97 (units unknown) (unknown) (unknown) (no date) (unknown) (unknown) Pulse Oximetry 98 98 (units unknown) (unknown) (unknown) (no date) (unknown) (unknown) Pulse Rate 62 63 (units unknown) (unknown) (unknown) (no date) (unknown) (unknown) Pulse Rate 63 61 (units unknown) (unknown) (unknown) (no date) (unknown) (unknown) Pulse Rate 63 (units unknown) (unknown) (unknown) (no date) (unknown) (unknown) Pulse Rate 66 67 (units unknown) (unknown) (unknown) (no date) (unknown) (unknown) Pulse Rate 67 62 (units unknown) (unknown) (unknown) (no date) (unknown) (unknown) Pulse Rate 68 (units unknown) (unknown) (unknown) (no date) (unknown) (unknown) Pulse Rate 69 66 (units unknown) (unknown) (unknown) (no date) (unknown) (unknown) RBC 3.85 L (units unknown) (unknown) (unknown) (no date) (unknown) (unknown) RBC (units unknown) (unknown) (unknown) (no date) (unknown) (unknown) RDW 17.5 H (units unknown) (unknown) (unknown) (no date) (unknown) (unknown) RDW (units unknown) (unknown) (unknown) (no date) (unknown) (unknown) Resp: Lungs CTA, non-labored breathing (units unknown) (unknown) (unknown) (no date) (unknown) (unknown) S/P myringotomy with insertion of tube (units unknown) (unknown) (unknown) (no date) (unknown) (unknown) SCDs (units unknown) (unknown) (unknown) (no date) (unknown) (unknown) (spontaneous vaginal delivery) (09/05/18) (units unknown) (unknown) (unknown) (no date) (unknown) (unknown) Signed By:<Electronically signed by Vanesa Hall MD> (units unknown) (unknown) (unknown) (no date) (unknown) (unknown) Skin: no lesions or rashes, dry and intact (units unknown) (unknown) (unknown) (no date) (unknown) (unknown) Smoker (units unknown) (unknown) (unknown) (no date) (unknown) (unknown) Smoking Status: Former smoker (units unknown) (unknown) (unknown) (no date) (unknown) (unknown) Social History (units unknown) (unknown) (unknown) (no date) (unknown) (unknown) Sodium 132 L (units unknown) (unknown) (unknown) (no date) (unknown) (unknown) Sodium 135 L (units unknown) (unknown) (unknown) (no date) (unknown) (unknown) Subjective (units unknown) (unknown) (unknown) (no date) (unknown) (unknown) Surgical History (units unknown) (unknown) (unknown) (no date) (unknown) (unknown) This is a 31 years old female with history of alcohol use disorder who presented (units unknown) (unknown) (unknown) (no date) (unknown) (unknown) Time Spent With Patient (units unknown) (unknown) (unknown) (no date) (unknown) (unknown) Total Bilirubin 0.7 (units unknown) (unknown) (unknown) (no date) (unknown) (unknown) Total Bilirubin 0.8 (units unknown) (unknown) (unknown) (no date) (unknown) (unknown) Total Protein 6.2 L (units unknown) (unknown) (unknown) (no date) (unknown) (unknown) UTI, acute but asymptomatic (units unknown) (unknown) (unknown) (no date) (unknown) (unknown) VTE Prophylaxis: Wells risk score? X Enoxaparin 40 mg subQ once daily? Bilateral (units unknown) (unknown) (unknown) (no date) (unknown) (unknown) Vital Signs (units unknown) (unknown) (unknown) (no date) (unknown) (unknown) WBC 3.5 L (units unknown) (unknown) (unknown) (no date) (unknown) (unknown) WBC (units unknown) (unknown) (unknown) (no date) (unknown) (unknown) [Embedded Image Not Available] (units unknown) (unknown) (unknown) (no date) (unknown) (unknown) a dose of oral cephalexin and now is on cipro IV BID.? Her initial work-up was (units unknown) (unknown) (unknown) (no date) (unknown) (unknown) alcohol intake: former (units unknown) (unknown) (unknown) (no date) (unknown) (unknown) answers. (units unknown) (unknown) (unknown) (no date) (unknown) (unknown) be severely agitated and restless, presented to ER asking for help with rehab (units unknown) (unknown) (unknown) (no date) (unknown) (unknown) but she was deemed t o be medically unstable for transfer to rehab.? Her CIWA (units unknown) (unknown) (unknown) (no date) (unknown) (unknown) current occupational exposures/hazards: Yes (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 with Pandemic ) (units unknown) (unknown) (unknown) (no date) (unknown) (unknown) drip due to need for continued sedation. 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 Yesterday, she was noted to (units unknown) (unknown) (unknown) (no date) (unknown) (unknown) non-icteric, oral mucosa pink and moist (units unknown) (unknown) (unknown) (no date) (unknown) (unknown) notable for blood alcohol level of 338. ? She is admitted to ICU on Precedex (units unknown) (unknown) (unknown) (no date) (unknown) (unknown) number of children: 1 (units unknown) (unknown) (unknown) (no date) (unknown) (unknown) occupational status: employed (units unknown) (unknown) (unknown) (no date) (unknown) (unknown) patient unable to articulate preference. (units unknown) (unknown) (unknown) (no date) (unknown) (unknown) relapsed due to a divorce with her per previous notes.? She states that (units unknown) (unknown) (unknown) (no date) (unknown) (unknown) responding to questions due to falling back to sleep (units unknown) (unknown) (unknown) (no date) (unknown) (unknown) score in the ED was as high as 20.? She was also found to have UTI and was given (units unknown) (unknown) (unknown) (no date) (unknown) (unknown) second hand exposure : No (growing up as a child - not currently) (units unknown) (unknown) (unknown) (no date) (unknown) (unknown) several visits to ER department in May 2022 for similar symptoms including (units unknown) (unknown) (unknown) (no date) (unknown) (unknown) she drinks as much a s 750 cc of vodka every day as documented.? She has had (units unknown) (unknown) (unknown) (no date) (unknown) (unknown) special renee needs: No (units unknown) (unknown) (unknown) (no date) (unknown) (unknown) substance use type: does not use (units unknown) (unknown) (unknown) (no date) (unknown) (unknown) take, unknown if she took. Dose is 300 mg to be taken at bedtime. (units unknown) (unknown) (unknown) (no date) (unknown) (unknown) to ED with acute alcohol intoxication with symptoms of alcohol withdrawal.? (units unknown) (unknown) (unknown) (no date) (unknown) (unknown) today; this time is exclusive of procedural time. (units unknown) (unknown) Result panel 2208 (unknown) (no date) (unknown) (unknown) (no value) (units unknown) (unknown) (unknown) (no date) (unknown) (unknown) # CODE STATUS: Full code (units unknown) (unknown) (unknown) (no date) (unknown) (unknown) # Disposition: Admit to ICU. May downgrade to MedSurg telemetry floor if CIWA (units unknown) (unknown) (unknown) (no date) (unknown) (unknown) # FEN: Regular diet. C/w IVF (D5 1/2 NS@100cc/hr). Aggressively replace Mg, K (units unknown) (unknown) (unknown) (no date) (unknown) (unknown) # Glucose: Fairly controlled. BG goal 120-180 (units unknown) (unknown) (unknown) (no date) (unknown) (unknown) # Lines/tubes: PIV (units unknown) (unknown) (unknown) (no date) (unknown) (unknown) # Prophylaxis: Lovenox 40 mg subcu for DVT prophylaxis, Pepcid for stress ulcer (units unknown) (unknown) (unknown) (no date) (unknown) (unknown) (1) Alcohol withdrawal delirium, acute, hyperactive: (units unknown) (unknown) (unknown) (no date) (unknown) (unknown) (2) Alcohol use disorder: (units unknown) (unknown) (unknown) (no date) (unknown) (unknown) (3) Acute cystitis: (units unknown) (unknown) (unknown) (no date) (unknown) (unknown) (past 8 hours): (units unknown) (unknown) (unknown) (no date) (unknown) (unknown) - Agree with rest of the management per primary team. D/w Primary hospitalist. (units unknown) (unknown) (unknown) (no date) (unknown) (unknown) - C/w aspiration and seizure precautions, Currently NPO due to severe (units unknown) (unknown) (unknown) (no date) (unknown) (unknown) - Consult social sciences professor to arrange for appropriate referral for detox program. (units unknown) (unknown) (unknown) (no date) (unknown) (unknown) - Continue IV Ativan 4-10 mg every 15 min PRN with goal to keep CIWA <8 per (units unknown) (unknown) (unknown) (no date) (unknown) (unknown) - Continue IV antibiotics x 3 days. Follow up and adjust antibiotics according (units unknown) (unknown) (unknown) (no date) (unknown) (unknown) - Continue alcohol withdrawal protocol including monitoring by CIWA score. C/w (units unknown) (unknown) (unknown) (no date) (unknown) (unknown) - Has relapsed and falied rehab. Consult social sciences professor to arrange for (units unknown) (unknown) (unknown) (no date) (unknown) (unknown) - If unable to keep CIWA less than 12, may use phenobarbital 130 mg IV/IM as (units unknown) (unknown) (unknown) (no date) (unknown) (unknown) - Order US of abdome n to evaluate for liver cirrhosis. (units unknown) (unknown) (unknown) (no date) (unknown) (unknown) - Received thiamine 100 mg IV, total 6 mg of Ativan IV, Librium 50 mg PO, and (units unknown) (unknown) (unknown) (no date) (unknown) (unknown) - She is able to protect his airway, does not need endotracheal intubation at (units unknown) (unknown) (unknown) (no date) (unknown) (unknown) - Start Librium 50 m g PO QID if and when able to tolerate PO meds. (units unknown) (unknown) (unknown) (no date) (unknown) (unknown) - Still has room to administer more BZPs and phenobarbital. 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 with (units unknown) (unknown) (unknown) (no date) (unknown) (unknown) 0.2 MCG/KG/HR (units unknown) (unknown) (unknown) (no date) (unknown) (unknown) [id number] (units unknown) (unknown) (unknown) (no date) (unknown) (unknown) 02:00 07/14/22 (units unknown) (unknown) (unknown) (no date) (unknown) (unknown) 02:08 (units unknown) (unknown) (unknown) (no date) (unknown) (unknown) 07/13/22 07/14/22 07/14/22 (units unknown) (unknown) (unknown) (no date) (unknown) (unknown) 07/13/22] (units unknown) (unknown) (unknown) (no date) (unknown) (unknown) 07/14/22 08:20 (units unknown) (unknown) (unknown) (no date) (unknown) (unknown) 07/14/22 09:10 (units unknown) (unknown) (unknown) (no date) (unknown) (unknown) 07/14/22 (units unknown) (unknown) (unknown) (no date) (unknown) (unknown) 03:00 07/14/22 (units unknown) (unknown) (unknown) (no date) (unknown) (unknown) 04:00 07/14/22 (units unknown) (unknown) (unknown) (no date) (unknown) (unknown) 04:00 (units unknown) (unknown) (unknown) (no date) (unknown) (unknown) 05:00 07/14/22 (units unknown) (unknown) (unknown) (no date) (unknown) (unknown) 05:00 (units unknown) (unknown) (unknown) (no date) (unknown) (unknown) 06:00 07/14/22 (units unknown) (unknown) (unknown) (no date) (unknown) (unknown) 06:28 (units unknown) (unknown) (unknown) (no date) (unknown) (unknown) 07:01 07/14/22 (units unknown) (unknown) (unknown) (no date) (unknown) (unknown) 07:52 (units unknown) (unknown) (unknown) (no date) (unknown) (unknown) 08:00 07/14/22 (units unknown) (unknown) (unknown) (no date) (unknown) (unknown) 09:00 07/14/22 (units unknown) (unknown) (unknown) (no date) (unknown) (unknown) 09:00 (units unknown) (unknown) (unknown) (no date) (unknown) (unknown) 09:12 (units unknown) (unknown) (unknown) (no date) (unknown) (unknown) 15:28 08:20 08:20 (units unknown) (unknown) (unknown) (no date) (unknown) (unknown) 60 mg IV BID scheduled. (units unknown) (unknown) (unknown) (no date) (unknown) (unknown) 67, urinalysis indicated many bacteria.? As per the bedside nurse, patient (units unknown) (unknown) (unknown) (no date) (unknown) (unknown) 97% on room air. She weighs 49.8 kg with a BMI of 20.1.? WBC is 3.3, hemoglobin (units unknown) (unknown) (unknown) (no date) (unknown) (unknown) ALT 17 (units unknown) (unknown) (unknown) (no date) (unknown) (unknown) AST 45 H (units unknown) (unknown) (unknown) (no date) (unknown) (unknown) Administration (units unknown) (unknown) (unknown) (no date) (unknown) (unknown) Age/Sex: 31 / F (units unknown) (unknown) (unknown) (no date) (unknown) (unknown) Albumin 3.5 (units unknown) (unknown) (unknown) (no date) (unknown) (unknown) Albumin/Globulin Ratio 1.3 (units unknown) (unknown) (unknown) (no date) (unknown) (unknown) Alcohol Withdrawal (units unknown) (unknown) (unknown) (no date) (unknown) (unknown) Alkaline Phosphatase 68 (units unknown) (unknown) (unknown) (no date) (unknown) (unknown) Assessment + Plan (units unknown) (unknown) (unknown) (no date) (unknown) (unknown) Assessment and plan (units unknown) (unknown) (unknown) (no date) (unknown) (unknown) Awake, oriented x 3, severely confused, intermittently agitated/restless but (units unknown) (unknown) (unknown) (no date) (unknown) (unknown) BUN 5 L (units unknown) (unknown) (unknown) (no date) (unknown) (unknown) BUN/Creatinine Ratio 7.9 (units unknown) (unknown) (unknown) (no date) (unknown) (unknown) BZPs + phenobarb. Would discourage the use of Precedex solely for the treatment (units unknown) (unknown) (unknown) (no date) (unknown) (unknown) Baso # (Auto) 0 (units unknown) (unknown) (unknown) (no date) (unknown) (unknown) Baso % (Auto) 0.8 (units unknown) (unknown) (unknown) (no date) (unknown) (unknown) Blood Pressure 105/75 (units unknown) (unknown) (unknown) (no date) (unknown) (unknown) Blood Pressure 107/75 (units unknown) (unknown) (unknown) (no date) (unknown) (unknown) Blood Pressure 109/7 4 110/75 (units unknown) (unknown) (unknown) (no date) (unknown) (unknown) Blood Pressure 110/7 9 112/63 (units unknown) (unknown) (unknown) (no date) (unknown) (unknown) Blood Pressure 113/81 (units unknown) (unknown) (unknown) (no date) (unknown) (unknown) Blood Pressure 114/78 (units unknown) (unknown) (unknown) (no date) (unknown) (unknown) Blood Pressure (units unknown) (unknown) (unknown) (no date) (unknown) (unknown) Briefly, this is a 1 3 years old female with history of alcohol use disorder who (units unknown) (unknown) (unknown) (no date) (unknown) (unknown) CIWAPRN PRN Administration (units unknown) (unknown) (unknown) (no date) (unknown) (unknown) Calcium 8.5 (units unknown) (unknown) (unknown) (no date) (unknown) (unknown) Carbon Dioxide 27 (units unknown) (unknown) (unknown) (no date) (unknown) (unknown) Cardio (units unknown) (unknown) (unknown) (no date) (unknown) (unknown) Chest (units unknown) (unknown) (unknown) (no date) (unknown) (unknown) Chlordiazepoxide 25 Mg Capsule PO 50 mg (units unknown) (unknown) (unknown) (no date) (unknown) (unknown) Chlordiazepoxide HCl 50 mg 07/14/22 06:00 07/14/22 06:04 (units unknown) (unknown) (unknown) (no date) (unknown) (unknown) Chloride 101 (units unknown) (unknown) (unknown) (no date) (unknown) (unknown) Cipro IV 200 mls/hr (units unknown) (unknown) (unknown) (no date) (unknown) (unknown) Ciprofloxacin 400 mg in 200 mls @ 200 mls/hr 07/13/22 08:00 07/14/22 08:04 (units unknown) (unknown) (unknown) (no date) (unknown) (unknown) Consent obtained for tele-bioinformatics technician care: Yes (units unknown) (unknown) (unknown) (no date) (unknown) (unknown) Const (units unknown) (unknown) (unknown) (no date) (unknown) (unknown) Creatinine 0.63 (units unknown) (unknown) (unknown) (no date) (unknown) (unknown) Critical Care time: (units unknown) (unknown) (unknown) (no date) (unknown) (unknown) Current Medications (units unknown) (unknown) (unknown) (no date) (unknown) (unknown) Currently, on Precedex at 0.6 mg/kg/hr. Per bedside RN, still confused and (units unknown) (unknown) (unknown) (no date) (unknown) (unknown) DAILY SANDY Administration (units unknown) (unknown) (unknown) (no date) (unknown) (unknown) : 1990 Acct:[id number] (units unknown) (unknown) (unknown) (no date) (unknown) (unknown) Date of Service: 07/13/22 (units unknown) (unknown) (unknown) (no date) (unknown) (unknown) Deep Vein Thrombosis/Pulmonary Embolism Present on Admission: Yes (units unknown) (unknown) (unknown) (no date) (unknown) (unknown) Discussed the plan o f care with bedside RN, ICU charge nurse and hospitalist (units unknown) (unknown) (unknown) (no date) (unknown) (unknown) Enoxaparin 40 Mg/0.4 Ml Syringe SUBCUT 40 mg (units unknown) (unknown) (unknown) (no date) (unknown) (unknown) Enoxaparin Sodium 40 mg 07/13/22 09:00 07/14/22 09:04 (units unknown) (unknown) (unknown) (no date) (unknown) (unknown) Eos # (Auto) 100 (units unknown) (unknown) (unknown) (no date) (unknown) (unknown) Eos % (Auto) 2.4 (units unknown) (unknown) (unknown) (no date) (unknown) (unknown) Estimated GFR > 60 (units unknown) (unknown) (unknown) (no date) (unknown) (unknown) Exam (units unknown) (unknown) (unknown) (no date) (unknown) (unknown) Folic Acid 1 Mg Tablet PO 1 mg (units unknown) (unknown) (unknown) (no date) (unknown) (unknown) Folic Acid 1 mg 07/13/22 09:00 07/14/22 09:04 (units unknown) (unknown) (unknown) (no date) (unknown) (unknown) Generic Name Dose Route Start Last Admin (units unknown) (unknown) (unknown) (no date) (unknown) (unknown) Globulin 2.7 (units unknown) (unknown) (unknown) (no date) (unknown) (unknown) Glucose 95 (units unknown) (unknown) (unknown) (no date) (unknown) (unknown) Hct 30.0 L (units unknown) (unknown) (unknown) (no date) (unknown) (unknown) Hematuria presence: without hematuria Qualified Code(s): N30.00 - Acute (units unknown) (unknown) (unknown) (no date) (unknown) (unknown) Her initial work-up was notable for blood alcohol level of 338. 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 (units unknown) (unknown) (unknown) (no date) (unknown) (unknown) Interval history: (units unknown) (unknown) (unknown) (no date) (unknown) (unknown) [address] [address] (units unknown) (unknown) (unknown) (no date) (unknown) (unknown) Laboratory Results - last 24 hr (units unknown) (unknown) (unknown) (no date) (unknown) (unknown) Labs (units unknown) (unknown) (unknown) (no date) (unknown) (unknown) Labs: (units unknown) (unknown) (unknown) (no date) (unknown) (unknown) Lorazepam 0 mg 07/13/22 06:40 07/13/22 10:15 (units unknown) (unknown) (unknown) (no date) (unknown) (unknown) Lorazepam 2 Mg/Ml In j IV 2 mg (units unknown) (unknown) (unknown) (no date) (unknown) (unknown) Lymph # (Auto) 1100 (units unknown) (unknown) (unknown) (no date) (unknown) (unknown) Lymph % (Auto) 30.8 (units unknown) (unknown) (unknown) (no date) (unknown) (unknown) MCH 26.5 (units unknown) (unknown) (unknown) (no date) (unknown) (unknown) MCHC 34.1 (units unknown) (unknown) (unknown) (no date) (unknown) (unknown) MCV 77.8 L (units unknown) (unknown) (unknown) (no date) (unknown) (unknown) MVI + Folate + Thiamine + pyridoxine. (units unknown) (unknown) (unknown) (no date) (unknown) (unknown) Magnesium 1.9 (units unknown) (unknown) (unknown) (no date) (unknown) (unknown) Medications: (units unknown) (unknown) (unknown) (no date) (unknown) (unknown) [place] # (Auto) 200 (units unknown) (unknown) (unknown) (no date) (unknown) (unknown) [place] % (Auto) 5.3 (units unknown) (unknown) (unknown) (no date) (unknown) (unknown) Moving all 4 extremities spontaneously (units unknown) (unknown) (unknown) (no date) (unknown) (unknown) Multivitamin 1 Table t PO 1 tab (units unknown) (unknown) (unknown) (no date) (unknown) (unknown) Multivitamins 1 tab 07/13/22 09:00 07/14/22 09:04 (units unknown) (unknown) (unknown) (no date) (unknown) (unknown) Nasal Screen MRSA (PCR) Not detected (units unknown) (unknown) (unknown) (no date) (unknown) (unknown) Neuro (units unknown) (unknown) (unknown) (no date) (unknown) (unknown) Neut # (Auto) 2100 (units unknown) (unknown) (unknown) (no date) (unknown) (unknown) Neut % (Auto) 60.7 (units unknown) (unknown) (unknown) (no date) (unknown) (unknown) Nicotine 14 Patch TO P 14 mg (units unknown) (unknown) (unknown) (no date) (unknown) (unknown) Nicotine 14 mg 07/13/22 09:00 07/14/22 09:05 (units unknown) (unknown) (unknown) (no date) (unknown) (unknown) Not using accessory muscle use (units unknown) (unknown) (unknown) (no date) (unknown) (unknown) Objective (units unknown) (unknown) (unknown) (no date) (unknown) (unknown) Other: (units unknown) (unknown) (unknown) (no date) (unknown) (unknown) Oxygen Delivery Method Room Air (units unknown) (unknown) (unknown) (no date) (unknown) (unknown) Pantoprazole 40 Mg Vial IV 40 mg (units unknown) (unknown) (unknown) (no date) (unknown) (unknown) Pantoprazole Sodium 40 mg 07/13/22 09:00 07/14/22 09:05 (units unknown) (unknown) (unknown) (no date) (unknown) (unknown) Patient Location: ICU (units unknown) (unknown) (unknown) (no date) (unknown) (unknown) Patient: Sarah Connors MR#: M (units unknown) (unknown) (unknown) (no date) (unknown) (unknown) Plan: (units unknown) (unknown) (unknown) (no date) (unknown) (unknown) Plt Count 116 L (units unknown) (unknown) (unknown) (no date) (unknown) (unknown) Potassium 4.2 (units unknown) (unknown) (unknown) (no date) (unknown) (unknown) Precedex IV 0.6 mcg/kg/hr (units unknown) (unknown) (unknown) (no date) (unknown) (unknown) Problem details: (units unknown) (unknown) (unknown) (no date) (unknown) (unknown) Protocol (units unknown) (unknown) (unknown) (no date) (unknown) (unknown) Provider: Gerardo Mccormick (units unknown) (unknown) (unknown) (no date) (unknown) (unknown) Pulse Oximetry 97 98 (units unknown) (unknown) (unknown) (no date) (unknown) (unknown) Pulse Oximetry 97 (units unknown) (unknown) (unknown) (no date) (unknown) (unknown) Pulse Oximetry 98 97 (units unknown) (unknown) (unknown) (no date) (unknown) (unknown) Pulse Oximetry 98 98 (units unknown) (unknown) (unknown) (no date) (unknown) (unknown) Pulse Rate 62 63 (units unknown) (unknown) (unknown) (no date) (unknown) (unknown) Pulse Rate 63 61 (units unknown) (unknown) (unknown) (no date) (unknown) (unknown) Pulse Rate 63 (units unknown) (unknown) (unknown) (no date) (unknown) (unknown) Pulse Rate 66 67 (units unknown) (unknown) (unknown) (no date) (unknown) (unknown) Pulse Rate 67 62 (units unknown) (unknown) (unknown) (no date) (unknown) (unknown) Pulse Rate 68 (units unknown) (unknown) (unknown) (no date) (unknown) (unknown) Pulse Rate 69 66 (units unknown) (unknown) (unknown) (no date) (unknown) (unknown) Q12H SANDY Administration (units unknown) (unknown) (unknown) (no date) (unknown) (unknown) Q6H SANDY Administration (units unknown) (unknown) (unknown) (no date) (unknown) (unknown) L7lultx but hasn't required Ativan or Phenobarbital overnight. Denies any fever, (units unknown) (unknown) (unknown) (no date) (unknown) (unknown) Qualifiers: (units unknown) (unknown) (unknown) (no date) (unknown) (unknown) [facility] (units unknown) (unknown) (unknown) (no date) (unknown) (unknown) RBC 3.85 L (units unknown) (unknown) (unknown) (no date) (unknown) (unknown) RDW 17.5 H (units unknown) (unknown) (unknown) (no date) (unknown) (unknown) Signed By: (units unknown) (unknown) (unknown) (no date) (unknown) (unknown) Sodium 132 L (units unknown) (unknown) (unknown) (no date) (unknown) (unknown) Status: Acute (units unknown) (unknown) (unknown) (no date) (unknown) (unknown) Stress Ulcer (units unknown) (unknown) (unknown) (no date) (unknown) (unknown) Stress ulcer prophylaxis: yes (units unknown) (unknown) (unknown) (no date) (unknown) (unknown) Subjective (units unknown) (unknown) (unknown) (no date) (unknown) (unknown) TITRATE SANDY 7.484 mls/hr (units unknown) (unknown) (unknown) (no date) (unknown) (unknown) Teleintensivist Progress Note (units unknown) (unknown) (unknown) (no date) (unknown) (unknown) The patient has high probability of sudden, clinically significant (units unknown) (unknown) (unknown) (no date) (unknown) (unknown) Thiamine 100 Mg Tablet PO 07/16/22 09:01 100 mg (units unknown) (unknown) (unknown) (no date) (unknown) (unknown) Thiamine HCl 100 mg 07/13/22 09:00 07/14/22 09:04 (units unknown) (unknown) (unknown) (no date) (unknown) (unknown) Time Spent With Patient (units unknown) (unknown) (unknown) (no date) (unknown) (unknown) Total Bilirubin 0.7 (units unknown) (unknown) (unknown) (no date) (unknown) (unknown) Total Protein 6.2 L (units unknown) (unknown) (unknown) (no date) (unknown) (unknown) Trade Name Edel PRN Reason Stop Dose Admin (units unknown) (unknown) (unknown) (no date) (unknown) (unknown) VTE (units unknown) (unknown) (unknown) (no date) (unknown) (unknown) Visit Medications (administered) (units unknown) (unknown) (unknown) (no date) (unknown) (unknown) Vital Signs (units unknown) (unknown) (unknown) (no date) (unknown) (unknown) WBC 3.5 L (units unknown) (unknown) (unknown) (no date) (unknown) (unknown) [Embedded Image Not Available] (units unknown) (unknown) (unknown) (no date) (unknown) (unknown) and Phos. (units unknown) (unknown) (unknown) (no date) (unknown) (unknown) and hematocrit are 11.5 and 35.3 respectively, glucose is 111, calcium 8.0, AST (units unknown) (unknown) (unknown) (no date) (unknown) (unknown) appropriate referral for detox program. (units unknown) (unknown) (unknown) (no date) (unknown) (unknown) as 20.? She was also found to have UTI and was given a dose of oral cephalexin.? (units unknown) (unknown) (unknown) (no date) (unknown) (unknown) bedside RN. (units unknown) (unknown) (unknown) (no date) (unknown) (unknown) blood alcohol level in 300s.? Today, she was noted to be severely agitated and (units unknown) (unknown) (unknown) (no date) (unknown) (unknown) blood pressure 93/54 , heart rate 119, respiratory rate 18, oxygen saturation of (units unknown) (unknown) (unknown) (no date) (unknown) (unknown) care minutes of my full attention on this patient's management and direct (units unknown) (unknown) (unknown) (no date) (unknown) (unknown) chills, chest pain, SOB. No other acute issues reported. (units unknown) (unknown) (unknown) (no date) (unknown) (unknown) cystitis without hematuria (units unknown) (unknown) (unknown) (no date) (unknown) (unknown) decision making. Brian ferreira devoted to procedures I billed separately and is not (units unknown) (unknown) (unknown) (no date) (unknown) (unknown) department in 2022 for similar symptoms including most recent visit with (units unknown) (unknown) (unknown) (no date) (unknown) (unknown) deterioration, which requires urgent interventions. I managed life supporting (units unknown) (unknown) (unknown) (no date) (unknown) (unknown) dexmedeTOMIDine in 0.9 % NaCL 400 mcg in 100 mls @ 2.495 mls/hr 07/13/22 11:15 (units unknown) (unknown) (unknown) (no date) (unknown) (unknown) drinks as much as 75 0 cc of vodka every day.? She has had several visits to ER (units unknown) (unknown) (unknown) (no date) (unknown) (unknown) fluoxetine 10 mg capsule 10 mg PO DAILY 07/13/22 [History Confirmed 07/13/22] (units unknown) (unknown) (unknown) (no date) (unknown) (unknown) following commands (units unknown) (unknown) (unknown) (no date) (unknown) (unknown) hydroxyzine HCl 50 m g tablet 50 mg PO DAILY 07/13/22 [History Confirmed (units unknown) (unknown) (unknown) (no date) (unknown) (unknown) included. (units unknown) (unknown) (unknown) (no date) (unknown) (unknown) intermittently agitated, CIWA score <8 most of the time. On Librium 50 mg (units unknown) (unknown) (unknown) (no date) (unknown) (unknown) interventions that required frequent physician assessment. I spent 35 critical (units unknown) (unknown) (unknown) (no date) (unknown) (unknown) ithdrawal.? Patient stated that she used to be sober for about 18 months in the (units unknown) (unknown) (unknown) (no date) (unknown) (unknown) medically unstable for transfer to rehab.? Her CIWA score in the ED was as high (units unknown) (unknown) (unknown) (no date) (unknown) (unknown) nausea/vomiting (units unknown) (unknown) (unknown) (no date) (unknown) (unknown) needed (no more than 4 doses in 24 hours). (units unknown) (unknown) (unknown) (no date) (unknown) (unknown) of alcohol withdrawal. (units unknown) (unknown) (unknown) (no date) (unknown) (unknown) past but had relapse d due to a divorce with her .? She states that she (units unknown) (unknown) (unknown) (no date) (unknown) (unknown) patient care. Time I spent with family or surrogate(s) is included if the (units unknown) (unknown) (unknown) (no date) (unknown) (unknown) patient was incapabl e of providing information or participating in medical (units unknown) (unknown) (unknown) (no date) (unknown) (unknown) phenobarbital 130 mg IV so far with elevated CIWA score still between 12-20 per (units unknown) (unknown) (unknown) (no date) (unknown) (unknown) presented to ED with acute alcohol intoxication with symptoms of alcohol w (units unknown) (unknown) (unknown) (no date) (unknown) (unknown) prophylaxis (units unknown) (unknown) (unknown) (no date) (unknown) (unknown) quetiapine 300 mg tablet 300 mg PO DAILY 07/13/22 [History Confirmed 07/13/22] (units unknown) (unknown) (unknown) (no date) (unknown) (unknown) received phenobarbital 130 mg IV x1, Librium 50 mg p.o. x1, and Ativan 6 mg IV (units unknown) (unknown) (unknown) (no date) (unknown) (unknown) restless, presented to ER asking for help with rehab but she was deemed to be (units unknown) (unknown) (unknown) (no date) (unknown) (unknown) score remains less than 12 for at least 12 hours. (units unknown) (unknown) (unknown) (no date) (unknown) (unknown) symptom triggered protocol. (units unknown) (unknown) (unknown) (no date) (unknown) (unknown) team (units unknown) (unknown) (unknown) (no date) (unknown) (unknown) this time and remain s hemodynamically stable. (units unknown) (unknown) (unknown) (no date) (unknown) (unknown) to urine cultures. (units unknown) (unknown) (unknown) (no date) (unknown) (unknown) today; this time is exclusive of procedural time. (units unknown) (unknown) (unknown) (no date) (unknown) (unknown) x1 in the ED.? She i s now admitted to ICU on Precedex drip. (units unknown) (unknown) Result panel [id number] (unknown) (no date) (unknown) (unknown) (no value) (units unknown) (unknown) (unknown) (no date) (unknown) (unknown) # CODE STATUS: Full code (units unknown) (unknown) (unknown) (no date) (unknown) (unknown) # Disposition: Admit to ICU[facility] if CIWA (units unknown) (unknown) (unknown) (no date) (unknown) (unknown) # FEN: Regular diet. C/w IVF (D5 1/2 NS@100cc/hr). Aggressively replace Mg, K (units unknown) (unknown) (unknown) (no date) (unknown) (unknown) # Glucose: Fairly controlled. BG goal 120-180 (units unknown) (unknown) (unknown) (no date) (unknown) (unknown) # Lines/tubes: PIV (units unknown) (unknown) (unknown) (no date) (unknown) (unknown) # Prophylaxis: Lovenox 40 mg subcu for DVT prophylaxis, Pepcid for stress ulcer (units unknown) (unknown) (unknown) (no date) (unknown) (unknown) (1) Alcohol withdrawal delirium, acute, hyperactive: (units unknown) (unknown) (unknown) (no date) (unknown) (unknown) (2) Alcohol use disorder: (units unknown) (unknown) (unknown) (no date) (unknown) (unknown) (3) Acute cystitis: (units unknown) (unknown) (unknown) (no date) (unknown) (unknown) (past 8 hours): (units unknown) (unknown) (unknown) (no date) (unknown) (unknown) - Agree with rest of the management per primary team. D/w Primary hospitalist. (units unknown) (unknown) (unknown) (no date) (unknown) (unknown) - C/w aspiration and seizure precautions, Currently NPO due to severe (units unknown) (unknown) (unknown) (no date) (unknown) (unknown) - Consult social sciences professor to arrange for appropriate referral for detox program. (units unknown) (unknown) (unknown) (no date) (unknown) (unknown) - Continue IV Ativan 4-10 mg every 15 min PRN with goal to keep CIWA <8 per (units unknown) (unknown) (unknown) (no date) (unknown) (unknown) - Continue IV antibiotics x 3 days. Follow up and adjust antibiotics according (units unknown) (unknown) (unknown) (no date) (unknown) (unknown) - Continue Librium 5 0 mg PO QID if able to tolerate PO meds. (units unknown) (unknown) (unknown) (no date) (unknown) (unknown) - Continue alcohol withdrawal protocol including monitoring by CIWA score. C/w (units unknown) (unknown) (unknown) (no date) (unknown) (unknown) - Has relapsed and falied rehab. Consult social sciences professor to arrange for (units unknown) (unknown) (unknown) (no date) (unknown) (unknown) - If unable to keep CIWA less than 12, may use phenobarbital 130 mg IV/IM as (units unknown) (unknown) (unknown) (no date) (unknown) (unknown) - Order US of abdome n to evaluate for liver cirrhosis. (units unknown) (unknown) (unknown) (no date) (unknown) (unknown) - Received thiamine 100 mg IV, total 6 mg of Ativan IV, Librium 50 mg PO, and (units unknown) (unknown) (unknown) (no date) (unknown) (unknown) - She is able to protect his airway, does not need endotracheal intubation at (units unknown) (unknown) (unknown) (no date) (unknown) (unknown) - Still has room to administer more BZPs and phenobarbital. 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 with (units unknown) (unknown) (unknown) (no date) (unknown) (unknown) 0.2 MCG/KG/HR (units unknown) (unknown) (unknown) (no date) (unknown) (unknown) [id number] (units unknown) (unknown) (unknown) (no date) (unknown) (unknown) 02:00 07/14/22 (units unknown) (unknown) (unknown) (no date) (unknown) (unknown) 02:08 (units unknown) (unknown) (unknown) (no date) (unknown) (unknown) 07/13/22 07/14/22 07/14/22 (units unknown) (unknown) (unknown) (no date) (unknown) (unknown) 07/13/22] (units unknown) (unknown) (unknown) (no date) (unknown) (unknown) 07/14/22 08:20 (units unknown) (unknown) (unknown) (no date) (unknown) (unknown) 07/14/22 09:10 (units unknown) (unknown) (unknown) (no date) (unknown) (unknown) 07/14/22 1003 (units unknown) (unknown) (unknown) (no date) (unknown) (unknown) 07/14/22 (units unknown) (unknown) (unknown) (no date) (unknown) (unknown) 03:00 07/14/22 (units unknown) (unknown) (unknown) (no date) (unknown) (unknown) 04:00 07/14/22 (units unknown) (unknown) (unknown) (no date) (unknown) (unknown) 04:00 (units unknown) (unknown) (unknown) (no date) (unknown) (unknown) 05:00 07/14/22 (units unknown) (unknown) (unknown) (no date) (unknown) (unknown) 05:00 (units unknown) (unknown) (unknown) (no date) (unknown) (unknown) 06:00 07/14/22 (units unknown) (unknown) (unknown) (no date) (unknown) (unknown) 06:28 (units unknown) (unknown) (unknown) (no date) (unknown) (unknown) 07:01 07/14/22 (units unknown) (unknown) (unknown) (no date) (unknown) (unknown) 07:52 (units unknown) (unknown) (unknown) (no date) (unknown) (unknown) 08:00 07/14/22 (units unknown) (unknown) (unknown) (no date) (unknown) (unknown) 09:00 07/14/22 (units unknown) (unknown) (unknown) (no date) (unknown) (unknown) 09:00 (units unknown) (unknown) (unknown) (no date) (unknown) (unknown) 09:12 (units unknown) (unknown) (unknown) (no date) (unknown) (unknown) 15:28 08:20 08:20 (units unknown) (unknown) (unknown) (no date) (unknown) (unknown) 60 mg IV BID scheduled. (units unknown) (unknown) (unknown) (no date) (unknown) (unknown) 67, urinalysis indicated many bacteria.? As per the bedside nurse, patient (units unknown) (unknown) (unknown) (no date) (unknown) (unknown) 97% on room air. She weighs 49.8 kg with a BMI of 20.1.? WBC is 3.3, hemoglobin (units unknown) (unknown) (unknown) (no date) (unknown) (unknown) ALT 17 (units unknown) (unknown) (unknown) (no date) (unknown) (unknown) AST 45 H (units unknown) (unknown) (unknown) (no date) (unknown) (unknown) Administration (units unknown) (unknown) (unknown) (no date) (unknown) (unknown) Age/Sex: 31 / F (units unknown) (unknown) (unknown) (no date) (unknown) (unknown) Albumin 3.5 (units unknown) (unknown) (unknown) (no date) (unknown) (unknown) Albumin/Globulin Ratio 1.3 (units unknown) (unknown) (unknown) (no date) (unknown) (unknown) Alcohol Withdrawal (units unknown) (unknown) (unknown) (no date) (unknown) (unknown) Alkaline Phosphatase 68 (units unknown) (unknown) (unknown) (no date) (unknown) (unknown) Assessment + Plan (units unknown) (unknown) (unknown) (no date) (unknown) (unknown) Assessment and plan (units unknown) (unknown) (unknown) (no date) (unknown) (unknown) Awake, oriented x 3, severely confused, intermittently agitated/restless but (units unknown) (unknown) (unknown) (no date) (unknown) (unknown) BUN 5 L (units unknown) (unknown) (unknown) (no date) (unknown) (unknown) BUN/Creatinine Ratio 7.9 (units unknown) (unknown) (unknown) (no date) (unknown) (unknown) BZPs + phenobarb. Would discourage the use of Precedex solely for the treatment (units unknown) (unknown) (unknown) (no date) (unknown) (unknown) Baso # (Auto) 0 (units unknown) (unknown) (unknown) (no date) (unknown) (unknown) Baso % (Auto) 0.8 (units unknown) (unknown) (unknown) (no date) (unknown) (unknown) Blood Pressure 105/75 (units unknown) (unknown) (unknown) (no date) (unknown) (unknown) Blood Pressure 107/75 (units unknown) (unknown) (unknown) (no date) (unknown) (unknown) Blood Pressure 109/7 4 110/75 (units unknown) (unknown) (unknown) (no date) (unknown) (unknown) Blood Pressure 110/7 9 112/63 (units unknown) (unknown) (unknown) (no date) (unknown) (unknown) Blood Pressure 113/81 (units unknown) (unknown) (unknown) (no date) (unknown) (unknown) Blood Pressure 114/78 (units unknown) (unknown) (unknown) (no date) (unknown) (unknown) Blood Pressure (units unknown) (unknown) (unknown) (no date) (unknown) (unknown) Briefly, this is a 1 3 years old female with history of alcohol use disorder who (units unknown) (unknown) (unknown) (no date) (unknown) (unknown) [facility] (units unknown) (unknown) (unknown) (no date) (unknown) (unknown) Calcium 8.5 (units unknown) (unknown) (unknown) (no date) (unknown) (unknown) Carbon Dioxide 27 (units unknown) (unknown) (unknown) (no date) (unknown) (unknown) Cardio (units unknown) (unknown) (unknown) (no date) (unknown) (unknown) Chest (units unknown) (unknown) (unknown) (no date) (unknown) (unknown) Chlordiazepoxide 25 Mg Capsule PO 50 mg (units unknown) (unknown) (unknown) (no date) (unknown) (unknown) Chlordiazepoxide HCl 50 mg 07/14/22 06:00 07/14/22 06:04 (units unknown) (unknown) (unknown) (no date) (unknown) (unknown) Chloride 101 (units unknown) (unknown) (unknown) (no date) (unknown) (unknown) Cipro IV 200 mls/hr (units unknown) (unknown) (unknown) (no date) (unknown) (unknown) Ciprofloxacin 400 mg in 200 mls @ 200 mls/hr 07/13/22 08:00 07/14/22 08:04 (units unknown) (unknown) (unknown) (no date) (unknown) (unknown) Consent obtained for tele-bioinformatics technician care: Yes (units unknown) (unknown) (unknown) (no date) (unknown) (unknown) Const (units unknown) (unknown) (unknown) (no date) (unknown) (unknown) Creatinine 0.63 (units unknown) (unknown) (unknown) (no date) (unknown) (unknown) Critical Care time: (units unknown) (unknown) (unknown) (no date) (unknown) (unknown) Current Medications (units unknown) (unknown) (unknown) (no date) (unknown) (unknown) Currently, on Precedex at 0.6 mg/kg/hr. Per bedside RN, still confused and (units unknown) (unknown) (unknown) (no date) (unknown) (unknown) DAILY SANDY Administration (units unknown) (unknown) (unknown) (no date) (unknown) (unknown) : 1990 Acct:[id number] (units unknown) (unknown) (unknown) (no date) (unknown) (unknown) Date of Service: 07/13/22 (units unknown) (unknown) (unknown) (no date) (unknown) (unknown) Deep Vein Thrombosis/Pulmonary Embolism Present on Admission: Yes (units unknown) (unknown) (unknown) (no date) (unknown) (unknown) Discussed the plan o f care with bedside RN, ICU charge nurse and hospitalist (units unknown) (unknown) (unknown) (no date) (unknown) (unknown) Enoxaparin 40 Mg/0.4 Ml Syringe SUBCUT 40 mg (units unknown) (unknown) (unknown) (no date) (unknown) (unknown) Enoxaparin Sodium 40 mg 07/13/22 09:00 07/14/22 09:04 (units unknown) (unknown) (unknown) (no date) (unknown) (unknown) Eos # (Auto) 100 (units unknown) (unknown) (unknown) (no date) (unknown) (unknown) Eos % (Auto) 2.4 (units unknown) (unknown) (unknown) (no date) (unknown) (unknown) Estimated GFR > 60 (units unknown) (unknown) (unknown) (no date) (unknown) (unknown) Exam (units unknown) (unknown) (unknown) (no date) (unknown) (unknown) Folic Acid 1 Mg Tablet PO 1 mg (units unknown) (unknown) (unknown) (no date) (unknown) (unknown) Folic Acid 1 mg 07/13/22 09:00 07/14/22 09:04 (units unknown) (unknown) (unknown) (no date) (unknown) (unknown) Generic Name Dose Route Start Last Admin (units unknown) (unknown) (unknown) (no date) (unknown) (unknown) Globulin 2.7 (units unknown) (unknown) (unknown) (no date) (unknown) (unknown) Glucose 95 (units unknown) (unknown) (unknown) (no date) (unknown) (unknown) Hct 30.0 L (units unknown) (unknown) (unknown) (no date) (unknown) (unknown) Hematuria presence: without hematuria Qualified Code(s): N30.00 - Acute (units unknown) (unknown) (unknown) (no date) (unknown) (unknown) Her initial work-up was notable for blood alcohol level of 338. She is afebrile, (units unknown) (unknown) (unknown) (no date) (unknown) (unknown) Hgb 10.2 L (units unknown) (unknown) (unknown) (no date) (unknown) (unknown) Home Medications (units unknown) (unknown) (unknown) (no date) (unknown) (unknown) I spent a total of [30] minutes of critical care time on this patient's care (units unknown) (unknown) (unknown) (no date) (unknown) (unknown) IF CAMERA ACTIVATED, patient seen via real-time interactive audiovisual (units unknown) (unknown) (unknown) (no date) (unknown) (unknown) In Sinus Tachycardia (units unknown) (unknown) (unknown) (no date) (unknown) (unknown) 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 (units unknown) (unknown) (unknown) (no date) (unknown) (unknown) Interval history: (units unknown) (unknown) (unknown) (no date) (unknown) (unknown) [address] [address] (units unknown) (unknown) (unknown) (no date) (unknown) (unknown) Laboratory Results - last 24 hr (units unknown) (unknown) (unknown) (no date) (unknown) (unknown) Labs (units unknown) (unknown) (unknown) (no date) (unknown) (unknown) Labs: (units unknown) (unknown) (unknown) (no date) (unknown) (unknown) Lorazepam 0 mg 07/13/22 06:40 07/13/22 10:15 (units unknown) (unknown) (unknown) (no date) (unknown) (unknown) Lorazepam 2 Mg/Ml In j IV 2 mg (units unknown) (unknown) (unknown) (no date) (unknown) (unknown) Lymph # (Auto) 1100 (units unknown) (unknown) (unknown) (no date) (unknown) (unknown) Lymph % (Auto) 30.8 (units unknown) (unknown) (unknown) (no date) (unknown) (unknown) MCH 26.5 (units unknown) (unknown) (unknown) (no date) (unknown) (unknown) MCHC 34.1 (units unknown) (unknown) (unknown) (no date) (unknown) (unknown) MCV 77.8 L (units unknown) (unknown) (unknown) (no date) (unknown) (unknown) MVI + Folate + Thiamine + pyridoxine. (units unknown) (unknown) (unknown) (no date) (unknown) (unknown) Magnesium 1.9 (units unknown) (unknown) (unknown) (no date) (unknown) (unknown) Medications: (units unknown) (unknown) (unknown) (no date) (unknown) (unknown) [place] # (Auto) 200 (units unknown) (unknown) (unknown) (no date) (unknown) (unknown) [place] % (Auto) 5.3 (units unknown) (unknown) (unknown) (no date) (unknown) (unknown) Moving all 4 extremities spontaneously (units unknown) (unknown) (unknown) (no date) (unknown) (unknown) Multivitamin 1 Table t PO 1 tab (units unknown) (unknown) (unknown) (no date) (unknown) (unknown) Multivitamins 1 tab 07/13/22 09:00 07/14/22 09:04 (units unknown) (unknown) (unknown) (no date) (unknown) (unknown) Nasal Screen MRSA (PCR) Not detected (units unknown) (unknown) (unknown) (no date) (unknown) (unknown) Neuro (units unknown) (unknown) (unknown) (no date) (unknown) (unknown) Neut # (Auto) 2100 (units unknown) (unknown) (unknown) (no date) (unknown) (unknown) Neut % (Auto) 60.7 (units unknown) (unknown) (unknown) (no date) (unknown) (unknown) Nicotine 14 Patch TO P 14 mg (units unknown) (unknown) (unknown) (no date) (unknown) (unknown) Nicotine 14 mg 07/13/22 09:00 07/14/22 09:05 (units unknown) (unknown) (unknown) (no date) (unknown) (unknown) Not using accessory muscle use (units unknown) (unknown) (unknown) (no date) (unknown) (unknown) Objective (units unknown) (unknown) (unknown) (no date) (unknown) (unknown) 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: RN (units unknown) (unknown) (unknown) (no date) (unknown) (unknown) Other: (units unknown) (unknown) (unknown) (no date) (unknown) (unknown) Oxygen Delivery Method Room Air (units unknown) (unknown) (unknown) (no date) (unknown) (unknown) Pantoprazole 40 Mg Vial IV 40 mg (units unknown) (unknown) (unknown) (no date) (unknown) (unknown) Pantoprazole Sodium 40 mg 07/13/22 09:00 07/14/22 09:05 (units unknown) (unknown) (unknown) (no date) (unknown) (unknown) Patient Location: ICU (units unknown) (unknown) (unknown) (no date) (unknown) (unknown) Patient: Sarah Connors MR#: M (units unknown) (unknown) (unknown) (no date) (unknown) (unknown) Plan: (units unknown) (unknown) (unknown) (no date) (unknown) (unknown) Plt Count 116 L (units unknown) (unknown) (unknown) (no date) (unknown) (unknown) Potassium 4.2 (units unknown) (unknown) (unknown) (no date) (unknown) (unknown) Precedex IV 0.6 mcg/kg/hr (units unknown) (unknown) (unknown) (no date) (unknown) (unknown) Problem details: (units unknown) (unknown) (unknown) (no date) (unknown) (unknown) Protocol (units unknown) (unknown) (unknown) (no date) (unknown) (unknown) Provider location (State): [place] (units unknown) (unknown) (unknown) (no date) (unknown) (unknown) Provider: Gerardo Mccormick (units unknown) (unknown) (unknown) (no date) (unknown) (unknown) Pulse Oximetry 97 98 (units unknown) (unknown) (unknown) (no date) (unknown) (unknown) Pulse Oximetry 97 (units unknown) (unknown) (unknown) (no date) (unknown) (unknown) Pulse Oximetry 98 97 (units unknown) (unknown) (unknown) (no date) (unknown) (unknown) Pulse Oximetry 98 98 (units unknown) (unknown) (unknown) (no date) (unknown) (unknown) Pulse Rate 62 63 (units unknown) (unknown) (unknown) (no date) (unknown) (unknown) Pulse Rate 63 61 (units unknown) (unknown) (unknown) (no date) (unknown) (unknown) Pulse Rate 63 (units unknown) (unknown) (unknown) (no date) (unknown) (unknown) Pulse Rate 66 67 (units unknown) (unknown) (unknown) (no date) (unknown) (unknown) Pulse Rate 67 62 (units unknown) (unknown) (unknown) (no date) (unknown) (unknown) Pulse Rate 68 (units unknown) (unknown) (unknown) (no date) (unknown) (unknown) Pulse Rate 69 66 (units unknown) (unknown) (unknown) (no date) (unknown) (unknown) Q12H SANDY Administration (units unknown) (unknown) (unknown) (no date) (unknown) (unknown) Q6H SANDY Administration (units unknown) (unknown) (unknown) (no date) (unknown) (unknown) [id number] but hasn't required Ativan or Phenobarbital overnight. Denies any fever, (units unknown) (unknown) (unknown) (no date) (unknown) (unknown) Qualifiers: (units unknown) (unknown) (unknown) (no date) (unknown) (unknown) Quality TeleICU (units unknown) (unknown) (unknown) (no date) (unknown) (unknown) RBC 3.85 L (units unknown) (unknown) (unknown) (no date) (unknown) (unknown) RDW 17.5 H (units unknown) (unknown) (unknown) (no date) (unknown) (unknown) Signed By:<Electronically signed by Gerardo Mccormick> (units unknown) (unknown) (unknown) (no date) (unknown) (unknown) Sodium 132 L (units unknown) (unknown) (unknown) (no date) (unknown) (unknown) Status: Acute (units unknown) (unknown) (unknown) (no date) (unknown) (unknown) Stress Ulcer (units unknown) (unknown) (unknown) (no date) (unknown) (unknown) Stress ulcer prophylaxis: yes (units unknown) (unknown) (unknown) (no date) (unknown) (unknown) Subjective (units unknown) (unknown) (unknown) (no date) (unknown) (unknown) TITRATE SANDY 7.484 mls/hr (units unknown) (unknown) (unknown) (no date) (unknown) (unknown) Teleintensivist Progress Note (units unknown) (unknown) (unknown) (no date) (unknown) (unknown) The patient has high probability of sudden, clinically significant (units unknown) (unknown) (unknown) (no date) (unknown) (unknown) Thiamine 100 Mg Tablet PO 07/16/22 09:01 100 mg (units unknown) (unknown) (unknown) (no date) (unknown) (unknown) Thiamine HCl 100 mg 07/13/22 09:00 07/14/22 09:04 (units unknown) (unknown) (unknown) (no date) (unknown) (unknown) Time Spent With Patient (units unknown) (unknown) (unknown) (no date) (unknown) (unknown) Total Bilirubin 0.7 (units unknown) (unknown) (unknown) (no date) (unknown) (unknown) Total Protein 6.2 L (units unknown) (unknown) (unknown) (no date) (unknown) (unknown) Trade Name Edel PRN Reason Stop Dose Admin (units unknown) (unknown) (unknown) (no date) (unknown) (unknown) VTE (units unknown) (unknown) (unknown) (no date) (unknown) (unknown) Visit Medications (administered) (units unknown) (unknown) (unknown) (no date) (unknown) (unknown) Vital Signs (units unknown) (unknown) (unknown) (no date) (unknown) (unknown) WBC 3.5 L (units unknown) (unknown) (unknown) (no date) (unknown) (unknown) [Embedded Image Not Available] (units unknown) (unknown) (unknown) (no date) (unknown) (unknown) and Phos. (units unknown) (unknown) (unknown) (no date) (unknown) (unknown) and hematocrit are 11.5 and 35.3 respectively, glucose is 111, calcium 8.0, AST (units unknown) (unknown) (unknown) (no date) (unknown) (unknown) appropriate referral for detox program. (units unknown) (unknown) (unknown) (no date) (unknown) (unknown) as 20.? She was also found to have UTI and was given a dose of oral cephalexin.? (units unknown) (unknown) (unknown) (no date) (unknown) (unknown) bedside RN. (units unknown) (unknown) (unknown) (no date) (unknown) (unknown) blood alcohol level in 300s.? Today, she was noted to be severely agitated and (units unknown) (unknown) (unknown) (no date) (unknown) (unknown) blood pressure 93/54 , heart rate 119, respiratory rate 18, oxygen saturation of (units unknown) (unknown) (unknown) (no date) (unknown) (unknown) care minutes of my full attention on this patient's management and direct (units unknown) (unknown) (unknown) (no date) (unknown) (unknown) chills, chest pain, SOB. No other acute issues reported. (units unknown) (unknown) (unknown) (no date) (unknown) (unknown) communication: Camer a activated (units unknown) (unknown) (unknown) (no date) (unknown) (unknown) cystitis without hematuria (units unknown) (unknown) (unknown) (no date) (unknown) (unknown) decision making. Brian ferreira devoted to procedures I billed separately and is not (units unknown) (unknown) (unknown) (no date) (unknown) (unknown) department in 2022 for similar symptoms including most recent visit with (units unknown) (unknown) (unknown) (no date) (unknown) (unknown) deterioration, which requires urgent interventions. I managed life supporting (units unknown) (unknown) (unknown) (no date) (unknown) (unknown) dexmedeTOMIDine in 0.9 % NaCL 400 mcg in 100 mls @ 2.495 mls/hr 07/13/22 11:15 (units unknown) (unknown) (unknown) (no date) (unknown) (unknown) drinks as much as 75 0 cc of vodka every day.? She has had several visits to ER (units unknown) (unknown) (unknown) (no date) (unknown) (unknown) fluoxetine 10 mg capsule 10 mg PO DAILY 07/13/22 [History Confirmed 07/13/22] (units unknown) (unknown) (unknown) (no date) (unknown) (unknown) following commands (units unknown) (unknown) (unknown) (no date) (unknown) (unknown) hydroxyzine HCl 50 m g tablet 50 mg PO DAILY 07/13/22 [History Confirmed (units unknown) (unknown) (unknown) (no date) (unknown) (unknown) included. (units unknown) (unknown) (unknown) (no date) (unknown) (unknown) intermittently agitated, CIWA score <8 most of the time. On Librium 50 mg (units unknown) (unknown) (unknown) (no date) (unknown) (unknown) interventions that required frequent physician assessment. I spent 35 critical (units unknown) (unknown) (unknown) (no date) (unknown) (unknown) medically unstable for transfer to rehab.? Her CIWA score in the ED was as high (units unknown) (unknown) (unknown) (no date) (unknown) (unknown) nausea/vomiting (units unknown) (unknown) (unknown) (no date) (unknown) (unknown) needed (no more than 4 doses in 24 hours). (units unknown) (unknown) (unknown) (no date) (unknown) (unknown) of alcohol withdrawal. (units unknown) (unknown) (unknown) (no date) (unknown) (unknown) past but had relapse d due to a divorce with her .? She states that she (units unknown) (unknown) (unknown) (no date) (unknown) (unknown) patient care. Time I spent with family or surrogate(s) is included if the (units unknown) (unknown) (unknown) (no date) (unknown) (unknown) patient was incapabl e of providing information or participating in medical (units unknown) (unknown) (unknown) (no date) (unknown) (unknown) phenobarbital 130 mg IV so far with elevated CIWA score still between 12-20 per (units unknown) (unknown) (unknown) (no date) (unknown) (unknown) presented to ED with acute alcohol intoxication with symptoms of alcohol (units unknown) (unknown) (unknown) (no date) (unknown) (unknown) prophylaxis (units unknown) (unknown) (unknown) (no date) (unknown) (unknown) quetiapine 300 mg tablet 300 mg PO DAILY 07/13/22 [History Confirmed 07/13/22] (units unknown) (unknown) (unknown) (no date) (unknown) (unknown) received phenobarbital 130 mg IV x1, Librium 50 mg p.o. x1, and Ativan 6 mg IV (units unknown) (unknown) (unknown) (no date) (unknown) (unknown) restless, presented to ER asking for help with rehab but she was deemed to be (units unknown) (unknown) (unknown) (no date) (unknown) (unknown) score remains less than 12 for at least 12 hours. (units unknown) (unknown) (unknown) (no date) (unknown) (unknown) symptom triggered protocol. (units unknown) (unknown) (unknown) (no date) (unknown) (unknown) team (units unknown) (unknown) (unknown) (no date) (unknown) (unknown) this time and remain s hemodynamically stable. (units unknown) (unknown) (unknown) (no date) (unknown) (unknown) to urine cultures. (units unknown) (unknown) (unknown) (no date) (unknown) (unknown) today; this time is exclusive of procedural time. (units unknown) (unknown) (unknown) (no date) (unknown) (unknown) withdrawal.? Patient stated that she used to be sober for about 18 months in the (units unknown) (unknown) (unknown) (no date) (unknown) (unknown) x1 in the ED.? She i s now admitted to ICU on Precedex drip. (units unknown) (unknown) Result panel [id number] (unknown) (no date) (unknown) (unknown) (no value) (units unknown) (unknown) (unknown) (no date) (unknown) (unknown) (past 8 hours): (units unknown) (unknown) (unknown) (no date) (unknown) (unknown) [id number] (units unknown) (unknown) (unknown) (no date) (unknown) (unknown) 07/12/22 16:28 (units unknown) (unknown) (unknown) (no date) (unknown) (unknown) 07/13/22 07/14/22 07/14/22 (units unknown) (unknown) (unknown) (no date) (unknown) (unknown) 07/13/22 06:12 (units unknown) (unknown) (unknown) (no date) (unknown) (unknown) 07/13/22 06:41 (units unknown) (unknown) (unknown) (no date) (unknown) (unknown) 07/13/22 11:35 (units unknown) (unknown) (unknown) (no date) (unknown) (unknown) 07/14/22 08:20 (units unknown) (unknown) (unknown) (no date) (unknown) (unknown) 07/14/22 (units unknown) (unknown) (unknown) (no date) (unknown) (unknown) 09:00 07/14/22 (units unknown) (unknown) (unknown) (no date) (unknown) (unknown) 09:12 (units unknown) (unknown) (unknown) (no date) (unknown) (unknown) 1 tab PO DAILY Qty: 30 0RF (units unknown) (unknown) (unknown) (no date) (unknown) (unknown) 10 mg PO DAILY (units unknown) (unknown) (unknown) (no date) (unknown) (unknown) 100 mg PO DAILY Qty: 30 0RF (units unknown) (unknown) (unknown) (no date) (unknown) (unknown) 10:00 07/14/22 (units unknown) (unknown) (unknown) (no date) (unknown) (unknown) 10:04 (units unknown) (unknown) (unknown) (no date) (unknown) (unknown) 15:28 08:20 08:20 (units unknown) (unknown) (unknown) (no date) (unknown) (unknown) 300 mg PO DAILY (units unknown) (unknown) (unknown) (no date) (unknown) (unknown) 40 mg PO 0700 Qty: 3 0 0RF (units unknown) (unknown) (unknown) (no date) (unknown) (unknown) 50 mg PO DAILY (units unknown) (unknown) (unknown) (no date) (unknown) (unknown) ALT 17 (units unknown) (unknown) (unknown) (no date) (unknown) (unknown) AST 45 H (units unknown) (unknown) (unknown) (no date) (unknown) (unknown) Age/Sex: 31 / F (units unknown) (unknown) (unknown) (no date) (unknown) (unknown) Albumin 3.5 (units unknown) (unknown) (unknown) (no date) (unknown) (unknown) Albumin/Globulin Ratio 1.3 (units unknown) (unknown) (unknown) (no date) (unknown) (unknown) Alcohol withdrawal delirium, acute, hyperactive (units unknown) (unknown) (unknown) (no date) (unknown) (unknown) Alcoholism (units unknown) (unknown) (unknown) (no date) (unknown) (unknown) Alkaline Phosphatase 68 (units unknown) (unknown) (unknown) (no date) (unknown) (unknown) Anemia (-2018) (units unknown) (unknown) (unknown) (no date) (unknown) (unknown) BUN 5 L (units unknown) (unknown) (unknown) (no date) (unknown) (unknown) BUN/Creatinine Ratio 7.9 (units unknown) (unknown) (unknown) (no date) (unknown) (unknown) Vanesa Hall MD (units unknown) (unknown) (unknown) (no date) (unknown) (unknown) Baso # (Auto) 0 (units unknown) (unknown) (unknown) (no date) (unknown) (unknown) Baso % (Auto) 0.8 (units unknown) (unknown) (unknown) (no date) (unknown) (unknown) Blood Pressure 106/74 (units unknown) (unknown) (unknown) (no date) (unknown) (unknown) Blood Pressure 112/63 (units unknown) (unknown) (unknown) (no date) (unknown) (unknown) Calcium 8.5 (units unknown) (unknown) (unknown) (no date) (unknown) (unknown) Carbon Dioxide 27 (units unknown) (unknown) (unknown) (no date) (unknown) (unknown) Chief complaint: Acute alcohol withdrawal (units unknown) (unknown) (unknown) (no date) (unknown) (unknown) Chloride 101 (units unknown) (unknown) (unknown) (no date) (unknown) (unknown) Comment: (units unknown) (unknown) (unknown) (no date) (unknown) (unknown) Consult to Dietitian , Adult Routine (units unknown) (unknown) (unknown) (no date) (unknown) (unknown) 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 (units unknown) (unknown) (unknown) (no date) (unknown) (unknown) Consult to 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 (units unknown) (unknown) (unknown) (no date) (unknown) (unknown) Consult to 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 (units unknown) (unknown) (unknown) (no date) (unknown) (unknown) Consulting Provider: [facility] Tele-intensivists (units unknown) (unknown) (unknown) (no date) (unknown) (unknown) Consults: (units unknown) (unknown) (unknown) (no date) (unknown) (unknown) Continued (units unknown) (unknown) (unknown) (no date) (unknown) (unknown) Creatinine 0.63 (units unknown) (unknown) (unknown) (no date) (unknown) (unknown) : 1990 Acct:[id number] (units unknown) (unknown) (unknown) (no date) (unknown) (unknown) Date Patient Seen: 07/14/22 (units unknown) (unknown) (unknown) (no date) (unknown) (unknown) Date of Service: 07/13/22 (units unknown) (unknown) (unknown) (no date) (unknown) (unknown) Date of admission: (units unknown) (unknown) (unknown) (no date) (unknown) (unknown) Deep Vein Thrombosis/Pulmonary Embolism Present on Admission: Yes (units unknown) (unknown) (unknown) (no date) (unknown) (unknown) Discharge Data (units unknown) (unknown) (unknown) (no date) (unknown) (unknown) Discharge Plan (units unknown) (unknown) (unknown) (no date) (unknown) (unknown) Discharge Providers (units unknown) (unknown) (unknown) (no date) (unknown) (unknown) Discharge Summary (units unknown) (unknown) (unknown) (no date) (unknown) (unknown) Discharge orders + Medications (units unknown) (unknown) (unknown) (no date) (unknown) (unknown) Discharge provider: (units unknown) (unknown) (unknown) (no date) (unknown) (unknown) Eos # (Auto) 100 (units unknown) (unknown) (unknown) (no date) (unknown) (unknown) Eos % (Auto) 2.4 (units unknown) (unknown) (unknown) (no date) (unknown) (unknown) Estimated GFR > 60 (units unknown) (unknown) (unknown) (no date) (unknown) (unknown) Exam (units unknown) (unknown) (unknown) (no date) (unknown) (unknown) Family History (units unknown) (unknown) (unknown) (no date) (unknown) (unknown) Family/Other Alcoholism (units unknown) (unknown) (unknown) (no date) (unknown) (unknown) Family/Other Diabete s mellitus (units unknown) (unknown) (unknown) (no date) (unknown) (unknown) Father Alcoholism (units unknown) (unknown) (unknown) (no date) (unknown) (unknown) Tonia Schneider MD [Primary Care Provider] (units unknown) (unknown) (unknown) (no date) (unknown) (unknown) Follow up/Referrals: (units unknown) (unknown) (unknown) (no date) (unknown) (unknown) Globulin 2.7 (units unknown) (unknown) (unknown) (no date) (unknown) (unknown) Glucose 95 (units unknown) (unknown) (unknown) (no date) (unknown) (unknown) Grandfather Smoker (units unknown) (unknown) (unknown) (no date) (unknown) (unknown) Grandfather Unknown whether patient has any health problems (units unknown) (unknown) (unknown) (no date) (unknown) (unknown) Grandmother Diabetes mellitus (units unknown) (unknown) (unknown) (no date) (unknown) (unknown) Grandmother Hypoglycemia (units unknown) (unknown) (unknown) (no date) (unknown) (unknown) H/O dilation and curettage (-12/14/16) (units unknown) (unknown) (unknown) (no date) (unknown) (unknown) H/O wisdom tooth extraction () (units unknown) (unknown) (unknown) (no date) (unknown) (unknown) Has provider been notified: Yes (units unknown) (unknown) (unknown) (no date) (unknown) (unknown) Hct 30.0 L (units unknown) (unknown) (unknown) (no date) (unknown) (unknown) Hgb 10.2 L (units unknown) (unknown) (unknown) (no date) (unknown) (unknown) History of Present Illness (units unknown) (unknown) (unknown) (no date) (unknown) (unknown) Insomnia (units unknown) (unknown) (unknown) (no date) (unknown) (unknown) [address] [address] (units unknown) (unknown) (unknown) (no date) (unknown) (unknown) Laboratory Results - last 24 hr (units unknown) (unknown) (unknown) (no date) (unknown) (unknown) Labs (units unknown) (unknown) (unknown) (no date) (unknown) (unknown) Labs: (units unknown) (unknown) (unknown) (no date) (unknown) (unknown) Lymph # (Auto) 1100 (units unknown) (unknown) (unknown) (no date) (unknown) (unknown) Lymph % (Auto) 30.8 (units unknown) (unknown) (unknown) (no date) (unknown) (unknown) MCH 26.5 (units unknown) (unknown) (unknown) (no date) (unknown) (unknown) MCHC 34.1 (units unknown) (unknown) (unknown) (no date) (unknown) (unknown) MCV 77.8 L (units unknown) (unknown) (unknown) (no date) (unknown) (unknown) Magnesium 1.9 (units unknown) (unknown) (unknown) (no date) (unknown) (unknown) Medical History (Updated 07/13/22 @ 11:47 by Gerardo Mccormick MD) (units unknown) (unknown) (unknown) (no date) (unknown) (unknown) Menometrorrhagia (units unknown) (unknown) (unknown) (no date) (unknown) (unknown) [place] # (Auto) 200 (units unknown) (unknown) (unknown) (no date) (unknown) (unknown) [place] % (Auto) 5.3 (units unknown) (unknown) (unknown) (no date) (unknown) (unknown) Mother Diabetes mellitus (units unknown) (unknown) (unknown) (no date) (unknown) (unknown) Tonia Schneider MD (units unknown) (unknown) (unknown) (no date) (unknown) (unknown) Narrative: (units unknown) (unknown) (unknown) (no date) (unknown) (unknown) Nasal Screen MRSA (PCR) Not detected (units unknown) (unknown) (unknown) (no date) (unknown) (unknown) Neut # (Auto) 2100 (units unknown) (unknown) (unknown) (no date) (unknown) (unknown) Neut % (Auto) 60.7 (units unknown) (unknown) (unknown) (no date) (unknown) (unknown) New (units unknown) (unknown) (unknown) (no date) (unknown) (unknown) Obesity (units unknown) (unknown) (unknown) (no date) (unknown) (unknown) Objective (units unknown) (unknown) (unknown) (no date) (unknown) (unknown) Overweight (units unknown) (unknown) (unknown) (no date) (unknown) (unknown) Oxygen Delivery Method Room Air (units unknown) (unknown) (unknown) (no date) (unknown) (unknown) PFSH (units unknown) (unknown) (unknown) (no date) (unknown) (unknown) Patient Disposition: Home (units unknown) (unknown) (unknown) (no date) (unknown) (unknown) Patient: Sarah Connors MR#: M (units unknown) (unknown) (unknown) (no date) (unknown) (unknown) Plt Count 116 L (units unknown) (unknown) (unknown) (no date) (unknown) (unknown) Potassium 4.2 (units unknown) (unknown) (unknown) (no date) (unknown) (unknown) Prescriptions: (units unknown) (unknown) (unknown) (no date) (unknown) (unknown) Primary Care Provider: Tonia Schneider (units unknown) (unknown) (unknown) (no date) (unknown) (unknown) Primary care physician: (units unknown) (unknown) (unknown) (no date) (unknown) (unknown) Provider (units unknown) (unknown) (unknown) (no date) (unknown) (unknown) Provider: Vanesa Hall MD (units unknown) (unknown) (unknown) (no date) (unknown) (unknown) Pulse Oximetry 98 97 (units unknown) (unknown) (unknown) (no date) (unknown) (unknown) Pulse Oximetry 98 98 (units unknown) (unknown) (unknown) (no date) (unknown) (unknown) Pulse Rate 62 63 (units unknown) (unknown) (unknown) (no date) (unknown) (unknown) Pulse Rate 66 67 (units unknown) (unknown) (unknown) (no date) (unknown) (unknown) Quality (units unknown) (unknown) (unknown) (no date) (unknown) (unknown) RBC 3.85 L (units unknown) (unknown) (unknown) (no date) (unknown) (unknown) RDW 17.5 H (units unknown) (unknown) (unknown) (no date) (unknown) (unknown) Reason For Exam: EHOH (units unknown) (unknown) (unknown) (no date) (unknown) (unknown) 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 (units unknown) (unknown) (unknown) (no date) (unknown) (unknown) S/P myringotomy with insertion of tube (units unknown) (unknown) (unknown) (no date) (unknown) (unknown) (spontaneous vaginal delivery) (-09/05/18) (units unknown) (unknown) (unknown) (no date) (unknown) (unknown) Signed By: (units unknown) (unknown) (unknown) (no date) (unknown) (unknown) Smoker (units unknown) (unknown) (unknown) (no date) (unknown) (unknown) Smoking Status: Former smoker (units unknown) (unknown) (unknown) (no date) (unknown) (unknown) Social History (units unknown) (unknown) (unknown) (no date) (unknown) (unknown) Sodium 132 L (units unknown) (unknown) (unknown) (no date) (unknown) (unknown) Stand Alone Forms: Patient Portal/API, Stroke Signs + Symptoms (units unknown) (unknown) (unknown) (no date) (unknown) (unknown) Surgical History (units unknown) (unknown) (unknown) (no date) (unknown) (unknown) This patient was als o of for DEXA (units unknown) (unknown) (unknown) (no date) (unknown) (unknown) Total Bilirubin 0.7 (units unknown) (unknown) (unknown) (no date) (unknown) (unknown) Total Protein 6.2 L (units unknown) (unknown) (unknown) (no date) (unknown) (unknown) VTE (units unknown) (unknown) (unknown) (no date) (unknown) (unknown) Visit Report/Discharge Packet (units unknown) (unknown) (unknown) (no date) (unknown) (unknown) Vital Signs (units unknown) (unknown) (unknown) (no date) (unknown) (unknown) WBC 3.5 L (units unknown) (unknown) (unknown) (no date) (unknown) (unknown) [Embedded Image Not Available] (units unknown) (unknown) (unknown) (no date) (unknown) (unknown) alcohol intake: former (units unknown) (unknown) (unknown) (no date) (unknown) (unknown) current occupational exposures/hazards: Yes (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 with Pandemic ) (units unknown) (unknown) (unknown) (no date) (unknown) (unknown) education level: college 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[employer] (units unknown) (unknown) (unknown) (no date) (unknown) (unknown) fluoxetine 10 mg capsule (units unknown) (unknown) (unknown) (no date) (unknown) (unknown) household members: children (units unknown) (unknown) (unknown) (no date) (unknown) (unknown) hydroxyzine HCl 50 m g tablet (units unknown) (unknown) (unknown) (no date) (unknown) (unknown) marital status: (units unknown) (unknown) (unknown) (no date) (unknown) (unknown) multivitamin with folic acid [Tab-A-Kael] 400 mcg Tablet (units unknown) (unknown) (unknown) (no date) (unknown) (unknown) number of children: 1 (units unknown) (unknown) (unknown) (no date) (unknown) (unknown) occupational status: employed (units unknown) (unknown) (unknown) (no date) (unknown) (unknown) pantoprazole 40 mg Tablet,Delayed Release (Dr/Ec) (units unknown) (unknown) (unknown) (no date) (unknown) (unknown) quetiapine 300 mg tablet (units unknown) (unknown) (unknown) (no date) (unknown) (unknown) second hand exposure : No (growing up as a child - not currently) (units unknown) (unknown) (unknown) (no date) (unknown) (unknown) special renee needs: No (units unknown) (unknown) (unknown) (no date) (unknown) (unknown) substance use type: does not use (units unknown) (unknown) (unknown) (no date) (unknown) (unknown) thiamine mononitrate (vit B1) 100 mg Tablet (units unknown) (unknown) Result panel 2212 (unknown) (no date) (unknown) (unknown) (no value) (units unknown) (unknown) (unknown) (no date) (unknown) (unknown) (past 8 hours): (units unknown) (unknown) (unknown) (no date) (unknown) (unknown) [id number] (units unknown) (unknown) (unknown) (no date) (unknown) (unknown) 07/12/22 16:28 (units unknown) (unknown) (unknown) (no date) (unknown) (unknown) 07/13/22 07/14/22 07/14/22 (units unknown) (unknown) (unknown) (no date) (unknown) (unknown) 07/13/22 06:12 (units unknown) (unknown) (unknown) (no date) (unknown) (unknown) 07/13/22 06:41 (units unknown) (unknown) (unknown) (no date) (unknown) (unknown) 07/13/22 11:35 (units unknown) (unknown) (unknown) (no date) (unknown) (unknown) 07/14/22 08:20 (units unknown) (unknown) (unknown) (no date) (unknown) (unknown) 07/14/22 (units unknown) (unknown) (unknown) (no date) (unknown) (unknown) 09:00 07/14/22 (units unknown) (unknown) (unknown) (no date) (unknown) (unknown) 09:12 (units unknown) (unknown) (unknown) (no date) (unknown) (unknown) 1 tab PO DAILY Qty: 30 0RF (units unknown) (unknown) (unknown) (no date) (unknown) (unknown) 10 mg PO DAILY (units unknown) (unknown) (unknown) (no date) (unknown) (unknown) 100 mg PO DAILY Qty: 30 0RF (units unknown) (unknown) (unknown) (no date) (unknown) (unknown) 10:00 07/14/22 (units unknown) (unknown) (unknown) (no date) (unknown) (unknown) 10:04 (units unknown) (unknown) (unknown) (no date) (unknown) (unknown) 15:28 08:20 08:20 (units unknown) (unknown) (unknown) (no date) (unknown) (unknown) 300 mg PO DAILY (units unknown) (unknown) (unknown) (no date) (unknown) (unknown) 40 mg PO 0700 Qty: 3 0 0RF (units unknown) (unknown) (unknown) (no date) (unknown) (unknown) 50 mg PO DAILY (units unknown) (unknown) (unknown) (no date) (unknown) (unknown) ALT 17 (units unknown) (unknown) (unknown) (no date) (unknown) (unknown) AST 45 H (units unknown) (unknown) (unknown) (no date) (unknown) (unknown) Acute alcohol intoxication and withdrawal (units unknown) (unknown) (unknown) (no date) (unknown) (unknown) Age/Sex: 31 / F (units unknown) (unknown) (unknown) (no date) (unknown) (unknown) Albumin 3.5 (units unknown) (unknown) (unknown) (no date) (unknown) (unknown) Albumin/Globulin Ratio 1.3 (units unknown) (unknown) (unknown) (no date) (unknown) (unknown) Alcohol withdrawal delirium, acute, hyperactive (units unknown) (unknown) (unknown) (no date) (unknown) (unknown) Alcoholism (units unknown) (unknown) (unknown) (no date) (unknown) (unknown) Alkaline Phosphatase 68 (units unknown) (unknown) (unknown) (no date) (unknown) (unknown) Anemia (-2018) (units unknown) (unknown) (unknown) (no date) (unknown) (unknown) BUN 5 L (units unknown) (unknown) (unknown) (no date) (unknown) (unknown) BUN/Creatinine Ratio 7.9 (units unknown) (unknown) (unknown) (no date) (unknown) (unknown) Vanesa Hall MD (units unknown) (unknown) (unknown) (no date) (unknown) (unknown) Baso # (Auto) 0 (units unknown) (unknown) (unknown) (no date) (unknown) (unknown) Baso % (Auto) 0.8 (units unknown) (unknown) (unknown) (no date) (unknown) (unknown) Blood Pressure 106/74 (units unknown) (unknown) (unknown) (no date) (unknown) (unknown) Blood Pressure 112/63 (units unknown) (unknown) (unknown) (no date) (unknown) (unknown) Calcium 8.5 (units unknown) (unknown) (unknown) (no date) (unknown) (unknown) Carbon Dioxide 27 (units unknown) (unknown) (unknown) (no date) (unknown) (unknown) Chief complaint: Acute alcohol withdrawal (units unknown) (unknown) (unknown) (no date) (unknown) (unknown) Chloride 101 (units unknown) (unknown) (unknown) (no date) (unknown) (unknown) Comment: (units unknown) (unknown) (unknown) (no date) (unknown) (unknown) Consult to Dietitian , Adult Routine (units unknown) (unknown) (unknown) (no date) (unknown) (unknown) 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 (units unknown) (unknown) (unknown) (no date) (unknown) (unknown) Consult to 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 (units unknown) (unknown) (unknown) (no date) (unknown) (unknown) Consult to 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 (units unknown) (unknown) (unknown) (no date) (unknown) (unknown) Consulting Provider: [employer] (units unknown) (unknown) (unknown) (no date) (unknown) (unknown) Consults: (units unknown) (unknown) (unknown) (no date) (unknown) (unknown) Continued (units unknown) (unknown) (unknown) (no date) (unknown) (unknown) Creatinine 0.63 (units unknown) (unknown) (unknown) (no date) (unknown) (unknown) : 1990 Acct:[id number] (units unknown) (unknown) (unknown) (no date) (unknown) (unknown) Date Patient Seen: 07/14/22 (units unknown) (unknown) (unknown) (no date) (unknown) (unknown) Date of Service: 07/13/22 (units unknown) (unknown) (unknown) (no date) (unknown) (unknown) Date of admission: (units unknown) (unknown) (unknown) (no date) (unknown) (unknown) Deep Vein Thrombosis/Pulmonary Embolism Present on Admission: Yes (units unknown) (unknown) (unknown) (no date) (unknown) (unknown) Discharge Data (units unknown) (unknown) (unknown) (no date) (unknown) (unknown) Discharge Diagnosis: (units unknown) (unknown) (unknown) (no date) (unknown) (unknown) Discharge Plan (units unknown) (unknown) (unknown) (no date) (unknown) (unknown) Discharge Providers (units unknown) (unknown) (unknown) (no date) (unknown) (unknown) Discharge Summary (units unknown) (unknown) (unknown) (no date) (unknown) (unknown) Discharge orders + Medications (units unknown) (unknown) (unknown) (no date) (unknown) (unknown) Discharge provider: (units unknown) (unknown) (unknown) (no date) (unknown) (unknown) Eos # (Auto) 100 (units unknown) (unknown) (unknown) (no date) (unknown) (unknown) Eos % (Auto) 2.4 (units unknown) (unknown) (unknown) (no date) (unknown) (unknown) Estimated GFR > 60 (units unknown) (unknown) (unknown) (no date) (unknown) (unknown) Exam (units unknown) (unknown) (unknown) (no date) (unknown) (unknown) Family History (units unknown) (unknown) (unknown) (no date) (unknown) (unknown) Family/Other Alcoholism (units unknown) (unknown) (unknown) (no date) (unknown) (unknown) Family/Other Diabete s mellitus (units unknown) (unknown) (unknown) (no date) (unknown) (unknown) Father Alcoholism (units unknown) (unknown) (unknown) (no date) (unknown) (unknown) Tonia Schneider MD [Primary Care Provider] (units unknown) (unknown) (unknown) (no date) (unknown) (unknown) Follow up/Referrals: (units unknown) (unknown) (unknown) (no date) (unknown) (unknown) Globulin 2.7 (units unknown) (unknown) (unknown) (no date) (unknown) (unknown) Glucose 95 (units unknown) (unknown) (unknown) (no date) (unknown) (unknown) Grandfather Smoker (units unknown) (unknown) (unknown) (no date) (unknown) (unknown) Grandfather Unknown whether patient has any health problems (units unknown) (unknown) (unknown) (no date) (unknown) (unknown) Grandmother Diabetes mellitus (units unknown) (unknown) (unknown) (no date) (unknown) (unknown) Grandmother Hypoglycemia (units unknown) (unknown) (unknown) (no date) (unknown) (unknown) H/O dilation and curettage (-12/14/16) (units unknown) (unknown) (unknown) (no date) (unknown) (unknown) H/O wisdom tooth extraction () (units unknown) (unknown) (unknown) (no date) (unknown) (unknown) Has provider been notified: Yes (units unknown) (unknown) (unknown) (no date) (unknown) (unknown) Hct 30.0 L (units unknown) (unknown) (unknown) (no date) (unknown) (unknown) Hgb 10.2 L (units unknown) (unknown) (unknown) (no date) (unknown) (unknown) History of Present Illness (units unknown) (unknown) (unknown) (no date) (unknown) (unknown) Hospital Course (units unknown) (unknown) (unknown) (no date) (unknown) (unknown) Insomnia (units unknown) (unknown) (unknown) (no date) (unknown) (unknown) [address] [address] (units unknown) (unknown) (unknown) (no date) (unknown) (unknown) Laboratory Results - last 24 hr (units unknown) (unknown) (unknown) (no date) (unknown) (unknown) Labs (units unknown) (unknown) (unknown) (no date) (unknown) (unknown) Labs: (units unknown) (unknown) (unknown) (no date) (unknown) (unknown) Lymph # (Auto) 1100 (units unknown) (unknown) (unknown) (no date) (unknown) (unknown) Lymph % (Auto) 30.8 (units unknown) (unknown) (unknown) (no date) (unknown) (unknown) MCH 26.5 (units unknown) (unknown) (unknown) (no date) (unknown) (unknown) MCHC 34.1 (units unknown) (unknown) (unknown) (no date) (unknown) (unknown) MCV 77.8 L (units unknown) (unknown) (unknown) (no date) (unknown) (unknown) Magnesium 1.9 (units unknown) (unknown) (unknown) (no date) (unknown) (unknown) Medical History (Updated 07/13/22 @ 11:47 by Gerardo Mccormick MD) (units unknown) (unknown) (unknown) (no date) (unknown) (unknown) Menometrorrhagia (units unknown) (unknown) (unknown) (no date) (unknown) (unknown) [place] # (Auto) 200 (units unknown) (unknown) (unknown) (no date) (unknown) (unknown) [place] % (Auto) 5.3 (units unknown) (unknown) (unknown) (no date) (unknown) (unknown) Mother Diabetes mellitus (units unknown) (unknown) (unknown) (no date) (unknown) (unknown) Tonia Schneider MD (units unknown) (unknown) (unknown) (no date) (unknown) (unknown) Narrative: (units unknown) (unknown) (unknown) (no date) (unknown) (unknown) Nasal Screen MRSA (PCR) Not detected (units unknown) (unknown) (unknown) (no date) (unknown) (unknown) Neut # (Auto) 2100 (units unknown) (unknown) (unknown) (no date) (unknown) (unknown) Neut % (Auto) 60.7 (units unknown) (unknown) (unknown) (no date) (unknown) (unknown) New (units unknown) (unknown) (unknown) (no date) (unknown) (unknown) Obesity (units unknown) (unknown) (unknown) (no date) (unknown) (unknown) Objective (units unknown) (unknown) (unknown) (no date) (unknown) (unknown) Overweight (units unknown) (unknown) (unknown) (no date) (unknown) (unknown) Oxygen Delivery Method Room Air (units unknown) (unknown) (unknown) (no date) (unknown) (unknown) PFSH (units unknown) (unknown) (unknown) (no date) (unknown) (unknown) Patient Disposition: Home (units unknown) (unknown) (unknown) (no date) (unknown) (unknown) Patient: Sarah Connors MR#: M (units unknown) (unknown) (unknown) (no date) (unknown) (unknown) Plt Count 116 L (units unknown) (unknown) (unknown) (no date) (unknown) (unknown) Potassium 4.2 (units unknown) (unknown) (unknown) (no date) (unknown) (unknown) Prescriptions: (units unknown) (unknown) (unknown) (no date) (unknown) (unknown) Primary Care Provider: Tonia Schneider (units unknown) (unknown) (unknown) (no date) (unknown) (unknown) Primary care physician: (units unknown) (unknown) (unknown) (no date) (unknown) (unknown) Provider (units unknown) (unknown) (unknown) (no date) (unknown) (unknown) Provider: Vanesa Hall MD (units unknown) (unknown) (unknown) (no date) (unknown) (unknown) Pulse Oximetry 98 97 (units unknown) (unknown) (unknown) (no date) (unknown) (unknown) Pulse Oximetry 98 98 (units unknown) (unknown) (unknown) (no date) (unknown) (unknown) Pulse Rate 62 63 (units unknown) (unknown) (unknown) (no date) (unknown) (unknown) Pulse Rate 66 67 (units unknown) (unknown) (unknown) (no date) (unknown) (unknown) Quality (units unknown) (unknown) (unknown) (no date) (unknown) (unknown) RBC 3.85 L (units unknown) (unknown) (unknown) (no date) (unknown) (unknown) RDW 17.5 H (units unknown) (unknown) (unknown) (no date) (unknown) (unknown) Reason For Exam: EHOH (units unknown) (unknown) (unknown) (no date) (unknown) (unknown) 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 (units unknown) (unknown) (unknown) (no date) (unknown) (unknown) S/P myringotomy with insertion of tube (units unknown) (unknown) (unknown) (no date) (unknown) (unknown) (spontaneous vaginal delivery) (-09/05/18) (units unknown) (unknown) (unknown) (no date) (unknown) (unknown) Signed By: (units unknown) (unknown) (unknown) (no date) (unknown) (unknown) Smoker (units unknown) (unknown) (unknown) (no date) (unknown) (unknown) Smoking Status: Former smoker (units unknown) (unknown) (unknown) (no date) (unknown) (unknown) Social History (units unknown) (unknown) (unknown) (no date) (unknown) (unknown) Sodium 132 L (units unknown) (unknown) (unknown) (no date) (unknown) (unknown) Stand Alone Forms: Patient Portal/API, Stroke Signs + Symptoms (units unknown) (unknown) (unknown) (no date) (unknown) (unknown) Summary (units unknown) (unknown) (unknown) (no date) (unknown) (unknown) Surgical History (units unknown) (unknown) (unknown) (no date) (unknown) (unknown) This patient was treated off?precedex infusion, she felt well and alert and (units unknown) (unknown) (unknown) (no date) (unknown) (unknown) Total Bilirubin 0.7 (units unknown) (unknown) (unknown) (no date) (unknown) (unknown) Total Protein 6.2 L (units unknown) (unknown) (unknown) (no date) (unknown) (unknown) UTI, acute but asymptomatic (units unknown) (unknown) (unknown) (no date) (unknown) (unknown) VTE (units unknown) (unknown) (unknown) (no date) (unknown) (unknown) Visit Report/Discharge Packet (units unknown) (unknown) (unknown) (no date) (unknown) (unknown) Vital Signs (units unknown) (unknown) (unknown) (no date) (unknown) (unknown) WBC 3.5 L (units unknown) (unknown) (unknown) (no date) (unknown) (unknown) [Embedded Image Not Available] (units unknown) (unknown) (unknown) (no date) (unknown) (unknown) alcohol intake: former (units unknown) (unknown) (unknown) (no date) (unknown) (unknown) current occupational exposures/hazards: Yes (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 with Pandemic ) (units unknown) (unknown) (unknown) (no date) (unknown) (unknown) discharge. (units unknown) (unknown) (unknown) (no date) (unknown) (unknown) eager to go home. Yo u confirm that she is connected the with a alcohol depend (units unknown) (unknown) (unknown) (no date) (unknown) (unknown) education level: college (units unknown) (unknown) (unknown) (no date) (unknown) (unknown) ence support group. 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[employer] (units unknown) (unknown) (unknown) (no date) (unknown) (unknown) fluoxetine 10 mg capsule (units unknown) (unknown) (unknown) (no date) (unknown) (unknown) household members: children (units unknown) (unknown) (unknown) (no date) (unknown) (unknown) hydroxyzine HCl 50 m g tablet (units unknown) (unknown) (unknown) (no date) (unknown) (unknown) marital status: (units unknown) (unknown) (unknown) (no date) (unknown) (unknown) multivitamin with folic acid [[id number]-[id number]] 400 mcg Tablet (units unknown) (unknown) (unknown) (no date) (unknown) (unknown) number of children: 1 (units unknown) (unknown) (unknown) (no date) (unknown) (unknown) occupational status: employed (units unknown) (unknown) (unknown) (no date) (unknown) (unknown) pantoprazole 40 mg Tablet,Delayed Release (Dr/Ec) (units unknown) (unknown) (unknown) (no date) (unknown) (unknown) quetiapine 300 mg tablet (units unknown) (unknown) (unknown) (no date) (unknown) (unknown) second hand exposure : No (growing up as a child - not currently) (units unknown) (unknown) (unknown) (no date) (unknown) (unknown) special renee needs: No (units unknown) (unknown) (unknown) (no date) (unknown) (unknown) substance use type: does not use (units unknown) (unknown) (unknown) (no date) (unknown) (unknown) thiamine mononitrate (vit B1) 100 mg Tablet (units unknown) (unknown) Result panel [id number] (unknown) (no date) (unknown) (unknown) (no value) (units unknown) (unknown) (unknown) (no date) (unknown) (unknown) (past 8 hours): (units unknown) (unknown) (unknown) (no date) (unknown) (unknown) [id number] (units unknown) (unknown) (unknown) (no date) (unknown) (unknown) 07/12/22 16:28 (units unknown) (unknown) (unknown) (no date) (unknown) (unknown) 07/13/22 07/14/22 07/14/22 (units unknown) (unknown) (unknown) (no date) (unknown) (unknown) 07/13/22 06:12 (units unknown) (unknown) (unknown) (no date) (unknown) (unknown) 07/13/22 06:41 (units unknown) (unknown) (unknown) (no date) (unknown) (unknown) 07/13/22 11:35 (units unknown) (unknown) (unknown) (no date) (unknown) (unknown) 07/14/22 08:20 (units unknown) (unknown) (unknown) (no date) (unknown) (unknown) 07/14/22 (units unknown) (unknown) (unknown) (no date) (unknown) (unknown) 09:00 07/14/22 (units unknown) (unknown) (unknown) (no date) (unknown) (unknown) 09:12 (units unknown) (unknown) (unknown) (no date) (unknown) (unknown) 1 tab PO DAILY Qty: 30 0RF (units unknown) (unknown) (unknown) (no date) (unknown) (unknown) 10 mg PO DAILY (units unknown) (unknown) (unknown) (no date) (unknown) (unknown) 100 mg PO DAILY Qty: 30 0RF (units unknown) (unknown) (unknown) (no date) (unknown) (unknown) 10:00 07/14/22 (units unknown) (unknown) (unknown) (no date) (unknown) (unknown) 10:04 (units unknown) (unknown) (unknown) (no date) (unknown) (unknown) 15:28 08:20 08:20 (units unknown) (unknown) (unknown) (no date) (unknown) (unknown) 300 mg PO DAILY (units unknown) (unknown) (unknown) (no date) (unknown) (unknown) 40 mg PO 0700 Qty: 3 0 0RF (units unknown) (unknown) (unknown) (no date) (unknown) (unknown) 50 mg PO DAILY (units unknown) (unknown) (unknown) (no date) (unknown) (unknown) ALT 17 (units unknown) (unknown) (unknown) (no date) (unknown) (unknown) AST 45 H (units unknown) (unknown) (unknown) (no date) (unknown) (unknown) Acute alcohol intoxication and withdrawal (units unknown) (unknown) (unknown) (no date) (unknown) (unknown) Age/Sex: 31 / F (units unknown) (unknown) (unknown) (no date) (unknown) (unknown) Albumin 3.5 (units unknown) (unknown) (unknown) (no date) (unknown) (unknown) Albumin/Globulin Ratio 1.3 (units unknown) (unknown) (unknown) (no date) (unknown) (unknown) Alcohol withdrawal delirium, acute, hyperactive (units unknown) (unknown) (unknown) (no date) (unknown) (unknown) Alcoholism (units unknown) (unknown) (unknown) (no date) (unknown) (unknown) Alkaline Phosphatase 68 (units unknown) (unknown) (unknown) (no date) (unknown) (unknown) Anemia (-2018) (units unknown) (unknown) (unknown) (no date) (unknown) (unknown) BUN 5 L (units unknown) (unknown) (unknown) (no date) (unknown) (unknown) BUN/Creatinine Ratio 7.9 (units unknown) (unknown) (unknown) (no date) (unknown) (unknown) Vanesa Hall MD (units unknown) (unknown) (unknown) (no date) (unknown) (unknown) Baso # (Auto) 0 (units unknown) (unknown) (unknown) (no date) (unknown) (unknown) Baso % (Auto) 0.8 (units unknown) (unknown) (unknown) (no date) (unknown) (unknown) Blood Pressure 106/74 (units unknown) (unknown) (unknown) (no date) (unknown) (unknown) Blood Pressure 112/63 (units unknown) (unknown) (unknown) (no date) (unknown) (unknown) Calcium 8.5 (units unknown) (unknown) (unknown) (no date) (unknown) (unknown) Carbon Dioxide 27 (units unknown) (unknown) (unknown) (no date) (unknown) (unknown) Chief complaint: Acute alcohol withdrawal (units unknown) (unknown) (unknown) (no date) (unknown) (unknown) Chloride 101 (units unknown) (unknown) (unknown) (no date) (unknown) (unknown) Cognitive/behavioral status at discharge: at baseline, oriented (units unknown) (unknown) (unknown) (no date) (unknown) (unknown) Comment: (units unknown) (unknown) (unknown) (no date) (unknown) (unknown) Consult to Dietitian , Adult Routine (units unknown) (unknown) (unknown) (no date) (unknown) (unknown) 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 (units unknown) (unknown) (unknown) (no date) (unknown) (unknown) Consult to 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 (units unknown) (unknown) (unknown) (no date) (unknown) (unknown) Consult to 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 (units unknown) (unknown) (unknown) (no date) (unknown) (unknown) Consulting Provider: [employer] (units unknown) (unknown) (unknown) (no date) (unknown) (unknown) Consults: (units unknown) (unknown) (unknown) (no date) (unknown) (unknown) Continued (units unknown) (unknown) (unknown) (no date) (unknown) (unknown) Creatinine 0.63 (units unknown) (unknown) (unknown) (no date) (unknown) (unknown) : 1990 Acct:[id number] (units unknown) (unknown) (unknown) (no date) (unknown) (unknown) Date Patient Seen: 07/14/22 (units unknown) (unknown) (unknown) (no date) (unknown) (unknown) Date of Service: 07/13/22 (units unknown) (unknown) (unknown) (no date) (unknown) (unknown) Date of admission: (units unknown) (unknown) (unknown) (no date) (unknown) (unknown) Deep Vein Thrombosis/Pulmonary Embolism Present on Admission: Yes (units unknown) (unknown) (unknown) (no date) (unknown) (unknown) Discharge Data (units unknown) (unknown) (unknown) (no date) (unknown) (unknown) Discharge Diagnosis: (units unknown) (unknown) (unknown) (no date) (unknown) (unknown) Discharge Plan (units unknown) (unknown) (unknown) (no date) (unknown) (unknown) Discharge Providers (units unknown) (unknown) (unknown) (no date) (unknown) (unknown) Discharge Summary (units unknown) (unknown) (unknown) (no date) (unknown) (unknown) Discharge orders + Medications (units unknown) (unknown) (unknown) (no date) (unknown) (unknown) Discharge provider: (units unknown) (unknown) (unknown) (no date) (unknown) (unknown) Eos # (Auto) 100 (units unknown) (unknown) (unknown) (no date) (unknown) (unknown) Eos % (Auto) 2.4 (units unknown) (unknown) (unknown) (no date) (unknown) (unknown) Estimated GFR > 60 (units unknown) (unknown) (unknown) (no date) (unknown) (unknown) Exam (units unknown) (unknown) (unknown) (no date) (unknown) (unknown) Family History (units unknown) (unknown) (unknown) (no date) (unknown) (unknown) Family/Other Alcoholism (units unknown) (unknown) (unknown) (no date) (unknown) (unknown) Family/Other Diabete s mellitus (units unknown) (unknown) (unknown) (no date) (unknown) (unknown) Father Alcoholism (units unknown) (unknown) (unknown) (no date) (unknown) (unknown) Tonia Schneider MD [Primary Care Provider] (units unknown) (unknown) (unknown) (no date) (unknown) (unknown) Follow up/Referrals: (units unknown) (unknown) (unknown) (no date) (unknown) (unknown) Functional status at discharge: independent ambulation (units unknown) (unknown) (unknown) (no date) (unknown) (unknown) Globulin 2.7 (units unknown) (unknown) (unknown) (no date) (unknown) (unknown) Glucose 95 (units unknown) (unknown) (unknown) (no date) (unknown) (unknown) Grandfather Smoker (units unknown) (unknown) (unknown) (no date) (unknown) (unknown) Grandfather Unknown whether patient has any health problems (units unknown) (unknown) (unknown) (no date) (unknown) (unknown) Grandmother Diabetes mellitus (units unknown) (unknown) (unknown) (no date) (unknown) (unknown) Grandmother Hypoglycemia (units unknown) (unknown) (unknown) (no date) (unknown) (unknown) H/O dilation and curettage (-12/14/16) (units unknown) (unknown) (unknown) (no date) (unknown) (unknown) H/O wisdom tooth extraction () (units unknown) (unknown) (unknown) (no date) (unknown) (unknown) Has provider been notified: Yes (units unknown) (unknown) (unknown) (no date) (unknown) (unknown) Hct 30.0 L (units unknown) (unknown) (unknown) (no date) (unknown) (unknown) Hgb 10.2 L (units unknown) (unknown) (unknown) (no date) (unknown) (unknown) History of Present Illness (units unknown) (unknown) (unknown) (no date) (unknown) (unknown) Hospital Course (units unknown) (unknown) (unknown) (no date) (unknown) (unknown) Insomnia (units unknown) (unknown) (unknown) (no date) (unknown) (unknown) [address] [address] (units unknown) (unknown) (unknown) (no date) (unknown) (unknown) Laboratory Results - last 24 hr (units unknown) (unknown) (unknown) (no date) (unknown) (unknown) Labs (units unknown) (unknown) (unknown) (no date) (unknown) (unknown) Labs: (units unknown) (unknown) (unknown) (no date) (unknown) (unknown) Lymph # (Auto) 1100 (units unknown) (unknown) (unknown) (no date) (unknown) (unknown) Lymph % (Auto) 30.8 (units unknown) (unknown) (unknown) (no date) (unknown) (unknown) MCH 26.5 (units unknown) (unknown) (unknown) (no date) (unknown) (unknown) MCHC 34.1 (units unknown) (unknown) (unknown) (no date) (unknown) (unknown) MCV 77.8 L (units unknown) (unknown) (unknown) (no date) (unknown) (unknown) Magnesium 1.9 (units unknown) (unknown) (unknown) (no date) (unknown) (unknown) Medical History (Updated 07/13/22 @ 11:47 by Gerardo Mccormick MD) (units unknown) (unknown) (unknown) (no date) (unknown) (unknown) Menometrorrhagia (units unknown) (unknown) (unknown) (no date) (unknown) (unknown) [place] # (Auto) 200 (units unknown) (unknown) (unknown) (no date) (unknown) (unknown) [place] % (Auto) 5.3 (units unknown) (unknown) (unknown) (no date) (unknown) (unknown) Mother Diabetes mellitus (units unknown) (unknown) (unknown) (no date) (unknown) (unknown) Tonia Schneider MD (units unknown) (unknown) (unknown) (no date) (unknown) (unknown) Narrative: (units unknown) (unknown) (unknown) (no date) (unknown) (unknown) Nasal Screen MRSA (PCR) Not detected (units unknown) (unknown) (unknown) (no date) (unknown) (unknown) Neut # (Auto) 2100 (units unknown) (unknown) (unknown) (no date) (unknown) (unknown) Neut % (Auto) 60.7 (units unknown) (unknown) (unknown) (no date) (unknown) (unknown) New (units unknown) (unknown) (unknown) (no date) (unknown) (unknown) Obesity (units unknown) (unknown) (unknown) (no date) (unknown) (unknown) Objective (units unknown) (unknown) (unknown) (no date) (unknown) (unknown) Overall status at discharge: patient is back to baseline (units unknown) (unknown) (unknown) (no date) (unknown) (unknown) Overweight (units unknown) (unknown) (unknown) (no date) (unknown) (unknown) Oxygen Delivery Method Room Air (units unknown) (unknown) (unknown) (no date) (unknown) (unknown) PFSH (units unknown) (unknown) (unknown) (no date) (unknown) (unknown) Patient Disposition: Home (units unknown) (unknown) (unknown) (no date) (unknown) (unknown) Patient: Sarah Connors MR#: M (units unknown) (unknown) (unknown) (no date) (unknown) (unknown) Plt Count 116 L (units unknown) (unknown) (unknown) (no date) (unknown) (unknown) Potassium 4.2 (units unknown) (unknown) (unknown) (no date) (unknown) (unknown) Prescriptions: (units unknown) (unknown) (unknown) (no date) (unknown) (unknown) Primary Care Provider: Tonia Schneider (units unknown) (unknown) (unknown) (no date) (unknown) (unknown) Primary care physician: (units unknown) (unknown) (unknown) (no date) (unknown) (unknown) Provider (units unknown) (unknown) (unknown) (no date) (unknown) (unknown) Provider: Vanesa Hall MD (units unknown) (unknown) (unknown) (no date) (unknown) (unknown) Pulse Oximetry 98 97 (units unknown) (unknown) (unknown) (no date) (unknown) (unknown) Pulse Oximetry 98 98 (units unknown) (unknown) (unknown) (no date) (unknown) (unknown) Pulse Rate 62 63 (units unknown) (unknown) (unknown) (no date) (unknown) (unknown) Pulse Rate 66 67 (units unknown) (unknown) (unknown) (no date) (unknown) (unknown) Quality (units unknown) (unknown) (unknown) (no date) (unknown) (unknown) RBC 3.85 L (units unknown) (unknown) (unknown) (no date) (unknown) (unknown) RDW 17.5 H (units unknown) (unknown) (unknown) (no date) (unknown) (unknown) Reason For Exam: EHOH (units unknown) (unknown) (unknown) (no date) (unknown) (unknown) 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 (units unknown) (unknown) (unknown) (no date) (unknown) (unknown) S/P myringotomy with insertion of tube (units unknown) (unknown) (unknown) (no date) (unknown) (unknown) (spontaneous vaginal delivery) (-09/05/18) (units unknown) (unknown) (unknown) (no date) (unknown) (unknown) Signed By: (units unknown) (unknown) (unknown) (no date) (unknown) (unknown) Smoker (units unknown) (unknown) (unknown) (no date) (unknown) (unknown) Smoking Status: Former smoker (units unknown) (unknown) (unknown) (no date) (unknown) (unknown) Social History (units unknown) (unknown) (unknown) (no date) (unknown) (unknown) Sodium 132 L (units unknown) (unknown) (unknown) (no date) (unknown) (unknown) Stand Alone Forms: Patient Portal/API, Stroke Signs + Symptoms (units unknown) (unknown) (unknown) (no date) (unknown) (unknown) Status at Discharge (units unknown) (unknown) (unknown) (no date) (unknown) (unknown) Summary (units unknown) (unknown) (unknown) (no date) (unknown) (unknown) Surgical History (units unknown) (unknown) (unknown) (no date) (unknown) (unknown) This patient was treated off?precedex infusion, she felt well and alert and (units unknown) (unknown) (unknown) (no date) (unknown) (unknown) Total Bilirubin 0.7 (units unknown) (unknown) (unknown) (no date) (unknown) (unknown) Total Protein 6.2 L (units unknown) (unknown) (unknown) (no date) (unknown) (unknown) UTI, acute but asymptomatic (units unknown) (unknown) (unknown) (no date) (unknown) (unknown) VTE (units unknown) (unknown) (unknown) (no date) (unknown) (unknown) Visit Report/Discharge Packet (units unknown) (unknown) (unknown) (no date) (unknown) (unknown) Vital Signs (units unknown) (unknown) (unknown) (no date) (unknown) (unknown) WBC 3.5 L (units unknown) (unknown) (unknown) (no date) (unknown) (unknown) [Embedded Image Not Available] (units unknown) (unknown) (unknown) (no date) (unknown) (unknown) alcohol intake: former (units unknown) (unknown) (unknown) (no date) (unknown) (unknown) current occupational exposures/hazards: Yes (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 with Pandemic ) (units unknown) (unknown) (unknown) (no date) (unknown) (unknown) discharge. (units unknown) (unknown) (unknown) (no date) (unknown) (unknown) eager to go home. Yo u confirm that she is connected the with a alcohol depend (units unknown) (unknown) (unknown) (no date) (unknown) (unknown) education level: college (units unknown) (unknown) (unknown) (no date) (unknown) (unknown) ence support group. 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[employer] (units unknown) (unknown) (unknown) (no date) (unknown) (unknown) fluoxetine 10 mg capsule (units unknown) (unknown) (unknown) (no date) (unknown) (unknown) household members: children (units unknown) (unknown) (unknown) (no date) (unknown) (unknown) hydroxyzine HCl 50 m g tablet (units unknown) (unknown) (unknown) (no date) (unknown) (unknown) marital status: (units unknown) (unknown) (unknown) (no date) (unknown) (unknown) multivitamin with folic acid [Tab-A-Kael] 400 mcg Tablet (units unknown) (unknown) (unknown) (no date) (unknown) (unknown) number of children: 1 (units unknown) (unknown) (unknown) (no date) (unknown) (unknown) occupational status: employed (units unknown) (unknown) (unknown) (no date) (unknown) (unknown) pantoprazole 40 mg Tablet,Delayed Release (Dr/Ec) (units unknown) (unknown) (unknown) (no date) (unknown) (unknown) quetiapine 300 mg tablet (units unknown) (unknown) (unknown) (no date) (unknown) (unknown) second hand exposure : No (growing up as a child - not currently) (units unknown) (unknown) (unknown) (no date) (unknown) (unknown) special renee needs: No (units unknown) (unknown) (unknown) (no date) (unknown) (unknown) substance use type: does not use (units unknown) (unknown) (unknown) (no date) (unknown) (unknown) thiamine mononitrate (vit B1) 100 mg Tablet (units unknown) (unknown) Result panel 2214 (unknown) (no date) (unknown) (unknown) (no value) (units unknown) (unknown) (unknown) (no date) (unknown) (unknown) (past 8 hours): (units unknown) (unknown) (unknown) (no date) (unknown) (unknown) [id number] (units unknown) (unknown) (unknown) (no date) (unknown) (unknown) 07/12/22 16:28 (units unknown) (unknown) (unknown) (no date) (unknown) (unknown) 07/13/22 07/14/22 07/14/22 (units unknown) (unknown) (unknown) (no date) (unknown) (unknown) 07/13/22 06:12 (units unknown) (unknown) (unknown) (no date) (unknown) (unknown) 07/13/22 06:41 (units unknown) (unknown) (unknown) (no date) (unknown) (unknown) 07/13/22 11:35 (units unknown) (unknown) (unknown) (no date) (unknown) (unknown) 07/14/22 08:20 (units unknown) (unknown) (unknown) (no date) (unknown) (unknown) 07/14/22 (units unknown) (unknown) (unknown) (no date) (unknown) (unknown) 09:00 07/14/22 (units unknown) (unknown) (unknown) (no date) (unknown) (unknown) 09:12 (units unknown) (unknown) (unknown) (no date) (unknown) (unknown) 1 tab PO DAILY Qty: 30 0RF (units unknown) (unknown) (unknown) (no date) (unknown) (unknown) 10 mg PO DAILY (units unknown) (unknown) (unknown) (no date) (unknown) (unknown) 100 mg PO DAILY Qty: 30 0RF (units unknown) (unknown) (unknown) (no date) (unknown) (unknown) 10:00 07/14/22 (units unknown) (unknown) (unknown) (no date) (unknown) (unknown) 10:04 (units unknown) (unknown) (unknown) (no date) (unknown) (unknown) 11.5 and 35.3 respectively glucose is 111 calcium 8.0 AST 67 urinalysis (units unknown) (unknown) (unknown) (no date) (unknown) (unknown) 15:28 08:20 08:20 (units unknown) (unknown) (unknown) (no date) (unknown) (unknown) 20 and she was deeme d to medically unstable for transfer to rehab, ED requested (units unknown) (unknown) (unknown) (no date) (unknown) (unknown) 300 mg PO DAILY (units unknown) (unknown) (unknown) (no date) (unknown) (unknown) 40 mg PO 0700 Qty: 3 0 0RF (units unknown) (unknown) (unknown) (no date) (unknown) (unknown) 50 mg PO DAILY (units unknown) (unknown) (unknown) (no date) (unknown) (unknown) ALT 17 (units unknown) (unknown) (unknown) (no date) (unknown) (unknown) AST 45 H (units unknown) (unknown) (unknown) (no date) (unknown) (unknown) Acute alcohol intoxication and withdrawal (units unknown) (unknown) (unknown) (no date) (unknown) (unknown) Age/Sex: 31 / F (units unknown) (unknown) (unknown) (no date) (unknown) (unknown) Albumin 3.5 (units unknown) (unknown) (unknown) (no date) (unknown) (unknown) Albumin/Globulin Ratio 1.3 (units unknown) (unknown) (unknown) (no date) (unknown) (unknown) Alcohol withdrawal delirium, acute, hyperactive (units unknown) (unknown) (unknown) (no date) (unknown) (unknown) Alcoholism (units unknown) (unknown) (unknown) (no date) (unknown) (unknown) Alkaline Phosphatase 68 (units unknown) (unknown) (unknown) (no date) (unknown) (unknown) Anemia (-2018) (units unknown) (unknown) (unknown) (no date) (unknown) (unknown) BUN 5 L (units unknown) (unknown) (unknown) (no date) (unknown) (unknown) BUN/Creatinine Ratio 7.9 (units unknown) (unknown) (unknown) (no date) (unknown) (unknown) Vanesa Hall MD (units unknown) (unknown) (unknown) (no date) (unknown) (unknown) Baso # (Auto) 0 (units unknown) (unknown) (unknown) (no date) (unknown) (unknown) Baso % (Auto) 0.8 (units unknown) (unknown) (unknown) (no date) (unknown) (unknown) Blood Pressure 106/74 (units unknown) (unknown) (unknown) (no date) (unknown) (unknown) Blood Pressure 112/63 (units unknown) (unknown) (unknown) (no date) (unknown) (unknown) Calcium 8.5 (units unknown) (unknown) (unknown) (no date) (unknown) (unknown) Carbon Dioxide 27 (units unknown) (unknown) (unknown) (no date) (unknown) (unknown) Chief complaint: Acute alcohol withdrawal (units unknown) (unknown) (unknown) (no date) (unknown) (unknown) Chloride 101 (units unknown) (unknown) (unknown) (no date) (unknown) (unknown) Cognitive/behavioral status at discharge: at baseline, oriented (units unknown) (unknown) (unknown) (no date) (unknown) (unknown) Comment: (units unknown) (unknown) (unknown) (no date) (unknown) (unknown) Consult to Dietitian , Adult Routine (units unknown) (unknown) (unknown) (no date) (unknown) (unknown) 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 (units unknown) (unknown) (unknown) (no date) (unknown) (unknown) Consult to 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 (units unknown) (unknown) (unknown) (no date) (unknown) (unknown) Consult to 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 (units unknown) (unknown) (unknown) (no date) (unknown) (unknown) Consulting Provider: [facility] [employer] (units unknown) (unknown) (unknown) (no date) (unknown) (unknown) Consults: (units unknown) (unknown) (unknown) (no date) (unknown) (unknown) Continued (units unknown) (unknown) (unknown) (no date) (unknown) (unknown) Creatinine 0.63 (units unknown) (unknown) (unknown) (no date) (unknown) (unknown) : 1990 Acct:[id number] (units unknown) (unknown) (unknown) (no date) (unknown) (unknown) Date Patient Seen: 07/14/22 (units unknown) (unknown) (unknown) (no date) (unknown) (unknown) Date of Service: 07/13/22 (units unknown) (unknown) (unknown) (no date) (unknown) (unknown) Date of admission: (units unknown) (unknown) (unknown) (no date) (unknown) (unknown) Deep Vein Thrombosis/Pulmonary Embolism Present on Admission: Yes (units unknown) (unknown) (unknown) (no date) (unknown) (unknown) Discharge Data (units unknown) (unknown) (unknown) (no date) (unknown) (unknown) Discharge Diagnosis: (units unknown) (unknown) (unknown) (no date) (unknown) (unknown) Discharge Plan (units unknown) (unknown) (unknown) (no date) (unknown) (unknown) Discharge Providers (units unknown) (unknown) (unknown) (no date) (unknown) (unknown) Discharge Summary (units unknown) (unknown) (unknown) (no date) (unknown) (unknown) Discharge orders + Medications (units unknown) (unknown) (unknown) (no date) (unknown) (unknown) Discharge provider: (units unknown) (unknown) (unknown) (no date) (unknown) (unknown) Eos # (Auto) 100 (units unknown) (unknown) (unknown) (no date) (unknown) (unknown) Eos % (Auto) 2.4 (units unknown) (unknown) (unknown) (no date) (unknown) (unknown) Estimated GFR > 60 (units unknown) (unknown) (unknown) (no date) (unknown) (unknown) Exam (units unknown) (unknown) (unknown) (no date) (unknown) (unknown) Family History (units unknown) (unknown) (unknown) (no date) (unknown) (unknown) Family/Other Alcoholism (units unknown) (unknown) (unknown) (no date) (unknown) (unknown) Family/Other Diabete s mellitus (units unknown) (unknown) (unknown) (no date) (unknown) (unknown) Father Alcoholism (units unknown) (unknown) (unknown) (no date) (unknown) (unknown) Tonia Schneider MD [Primary Care Provider] (units unknown) (unknown) (unknown) (no date) (unknown) (unknown) Follow up/Referrals: (units unknown) (unknown) (unknown) (no date) (unknown) (unknown) Functional status at discharge: independent ambulation (units unknown) (unknown) (unknown) (no date) (unknown) (unknown) Globulin 2.7 (units unknown) (unknown) (unknown) (no date) (unknown) (unknown) Glucose 95 (units unknown) (unknown) (unknown) (no date) (unknown) (unknown) Grandfather Smoker (units unknown) (unknown) (unknown) (no date) (unknown) (unknown) Grandfather Unknown whether patient has any health problems (units unknown) (unknown) (unknown) (no date) (unknown) (unknown) Grandmother Diabetes mellitus (units unknown) (unknown) (unknown) (no date) (unknown) (unknown) Grandmother Hypoglycemia (units unknown) (unknown) (unknown) (no date) (unknown) (unknown) H/O dilation and curettage (-12/14/16) (units unknown) (unknown) (unknown) (no date) (unknown) (unknown) H/O wisdom tooth extraction () (units unknown) (unknown) (unknown) (no date) (unknown) (unknown) Has provider been notified: Yes (units unknown) (unknown) (unknown) (no date) (unknown) (unknown) Hct 30.0 L (units unknown) (unknown) (unknown) (no date) (unknown) (unknown) Hgb 10.2 L (units unknown) (unknown) (unknown) (no date) (unknown) (unknown) History of Present Illness (units unknown) (unknown) (unknown) (no date) (unknown) (unknown) Hospital Course (units unknown) (unknown) (unknown) (no date) (unknown) (unknown) Hospital Course: (units unknown) (unknown) (unknown) (no date) (unknown) (unknown) Insomnia (units unknown) (unknown) (unknown) (no date) (unknown) (unknown) [address] [address] (units unknown) (unknown) (unknown) (no date) (unknown) (unknown) May of 2022 with similar symptoms.? She came in complaining of needing help, (units unknown) (unknown) (unknown) (no date) (unknown) (unknown) Laboratory Results - last 24 hr (units unknown) (unknown) (unknown) (no date) (unknown) (unknown) Labs (units unknown) (unknown) (unknown) (no date) (unknown) (unknown) Labs: (units unknown) (unknown) (unknown) (no date) (unknown) (unknown) Lymph # (Auto) 1100 (units unknown) (unknown) (unknown) (no date) (unknown) (unknown) Lymph % (Auto) 30.8 (units unknown) (unknown) (unknown) (no date) (unknown) (unknown) MCH 26.5 (units unknown) (unknown) (unknown) (no date) (unknown) (unknown) MCHC 34.1 (units unknown) (unknown) (unknown) (no date) (unknown) (unknown) MCV 77.8 L (units unknown) (unknown) (unknown) (no date) (unknown) (unknown) Magnesium 1.9 (units unknown) (unknown) (unknown) (no date) (unknown) (unknown) Medical History (Updated 07/13/22 @ 11:47 by Gerardo Mccormick MD) (units unknown) (unknown) (unknown) (no date) (unknown) (unknown) Menometrorrhagia (units unknown) (unknown) (unknown) (no date) (unknown) (unknown) [place] # (Auto) 200 (units unknown) (unknown) (unknown) (no date) (unknown) (unknown) [place] % (Auto) 5.3 (units unknown) (unknown) (unknown) (no date) (unknown) (unknown) Mother Diabetes mellitus (units unknown) (unknown) (unknown) (no date) (unknown) (unknown) Tonia Schneider MD (units unknown) (unknown) (unknown) (no date) (unknown) (unknown) Narrative: (units unknown) (unknown) (unknown) (no date) (unknown) (unknown) Nasal Screen MRSA (PCR) Not detected (units unknown) (unknown) (unknown) (no date) (unknown) (unknown) Neut # (Auto) 2100 (units unknown) (unknown) (unknown) (no date) (unknown) (unknown) Neut % (Auto) 60.7 (units unknown) (unknown) (unknown) (no date) (unknown) (unknown) New (units unknown) (unknown) (unknown) (no date) (unknown) (unknown) Obesity (units unknown) (unknown) (unknown) (no date) (unknown) (unknown) Objective (units unknown) (unknown) (unknown) (no date) (unknown) (unknown) Overall status at discharge: patient is back to baseline (units unknown) (unknown) (unknown) (no date) (unknown) (unknown) Overweight (units unknown) (unknown) (unknown) (no date) (unknown) (unknown) Oxygen Delivery Method Room Air (units unknown) (unknown) (unknown) (no date) (unknown) (unknown) PFSH (units unknown) (unknown) (unknown) (no date) (unknown) (unknown) Patient Disposition: Home (units unknown) (unknown) (unknown) (no date) (unknown) (unknown) Patient provided a history for 'I went on a castañeda' for 12 days. Per the ED (units unknown) (unknown) (unknown) (no date) (unknown) (unknown) Patient: Sarah Connors MR#: M (units unknown) (unknown) (unknown) (no date) (unknown) (unknown) Plt Count 116 L (units unknown) (unknown) (unknown) (no date) (unknown) (unknown) Potassium 4.2 (units unknown) (unknown) (unknown) (no date) (unknown) (unknown) Prescriptions: (units unknown) (unknown) (unknown) (no date) (unknown) (unknown) Primary Care Provider: Tonia Schneider (units unknown) (unknown) (unknown) (no date) (unknown) (unknown) Primary care physician: (units unknown) (unknown) (unknown) (no date) (unknown) (unknown) Provider (units unknown) (unknown) (unknown) (no date) (unknown) (unknown) Provider: Vanesa Hall MD (units unknown) (unknown) (unknown) (no date) (unknown) (unknown) Pulse Oximetry 98 97 (units unknown) (unknown) (unknown) (no date) (unknown) (unknown) Pulse Oximetry 98 98 (units unknown) (unknown) (unknown) (no date) (unknown) (unknown) Pulse Rate 62 63 (units unknown) (unknown) (unknown) (no date) (unknown) (unknown) Pulse Rate 66 67 (units unknown) (unknown) (unknown) (no date) (unknown) (unknown) Quality (units unknown) (unknown) (unknown) (no date) (unknown) (unknown) RBC 3.85 L (units unknown) (unknown) (unknown) (no date) (unknown) (unknown) RDW 17.5 H (units unknown) (unknown) (unknown) (no date) (unknown) (unknown) Reason For Exam: EHOH (units unknown) (unknown) (unknown) (no date) (unknown) (unknown) 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 (units unknown) (unknown) (unknown) (no date) (unknown) (unknown) S/P myringotomy with insertion of tube (units unknown) (unknown) (unknown) (no date) (unknown) (unknown) (spontaneous vaginal delivery) (-09/05/18) (units unknown) (unknown) (unknown) (no date) (unknown) (unknown) She remained in the ED awaiting a bed and was receiving oral Ativan, but (units unknown) (unknown) (unknown) (no date) (unknown) (unknown) Signed By: (units unknown) (unknown) (unknown) (no date) (unknown) (unknown) Smoker (units unknown) (unknown) (unknown) (no date) (unknown) (unknown) Smoking Status: Former smoker (units unknown) (unknown) (unknown) (no date) (unknown) (unknown) Social History (units unknown) (unknown) (unknown) (no date) (unknown) (unknown) Sodium 132 L (units unknown) (unknown) (unknown) (no date) (unknown) (unknown) Stand Alone Forms: Patient Portal/API, Stroke Signs + Symptoms (units unknown) (unknown) (unknown) (no date) (unknown) (unknown) Status at Discharge (units unknown) (unknown) (unknown) (no date) (unknown) (unknown) Summary (units unknown) (unknown) (unknown) (no date) (unknown) (unknown) Surgical History (units unknown) (unknown) (unknown) (no date) (unknown) (unknown) This patient was treated off?precedex infusion, she felt well and alert and (units unknown) (unknown) (unknown) (no date) (unknown) (unknown) Total Bilirubin 0.7 (units unknown) (unknown) (unknown) (no date) (unknown) (unknown) Total Protein 6.2 L (units unknown) (unknown) (unknown) (no date) (unknown) (unknown) UTI, acute but asymptomatic (units unknown) (unknown) (unknown) (no date) (unknown) (unknown) VTE (units unknown) (unknown) (unknown) (no date) (unknown) (unknown) Visit Report/Discharge Packet (units unknown) (unknown) (unknown) (no date) (unknown) (unknown) Vital Signs (units unknown) (unknown) (unknown) (no date) (unknown) (unknown) WBC 3.5 L (units unknown) (unknown) (unknown) (no date) (unknown) (unknown) [Embedded Image Not Available] (units unknown) (unknown) (unknown) (no date) (unknown) (unknown) alcohol intake: former (units unknown) (unknown) (unknown) (no date) (unknown) (unknown) an ICU bed. She also had a concern for urinary tract infection and had been (units unknown) (unknown) (unknown) (no date) (unknown) (unknown) appears to have limited history currently due to intoxication.? She stated that (units unknown) (unknown) (unknown) (no date) (unknown) (unknown) chucking from it.? She stated that she drank 750 mL at a time.? This 3 weeks ago (units unknown) (unknown) (unknown) (no date) (unknown) (unknown) current occupational exposures/hazards: Yes (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 with Pandemic ) (units unknown) (unknown) (unknown) (no date) (unknown) (unknown) daily since then.? She wants rehab.? She has been [place] (units unknown) (unknown) (unknown) (no date) (unknown) (unknown) developed increasing agitation and then DTs. Her CIWA score went from 12 to over (units unknown) (unknown) (unknown) (no date) (unknown) (unknown) discharge. (units unknown) (unknown) (unknown) (no date) (unknown) (unknown) eager to go home. Yo u confirm that she is connected the with a alcohol depend (units unknown) (unknown) (unknown) (no date) (unknown) (unknown) education level: college (units unknown) (unknown) (unknown) (no date) (unknown) (unknown) ence support group. 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[employer] Witness (units unknown) (unknown) (unknown) (no date) (unknown) (unknown) fluoxetine 10 mg capsule (units unknown) (unknown) (unknown) (no date) (unknown) (unknown) frequent visitor for alcohol related complaints through 2019, and she presented (units unknown) (unknown) (unknown) (no date) (unknown) (unknown) given one dose of oral cephalexin for this and was transitioned to IV Cipro 400 (units unknown) (unknown) (unknown) (no date) (unknown) (unknown) heart rate 119 respiratory rate 18 oxygen saturation of 97% on room air she (units unknown) (unknown) (unknown) (no date) (unknown) (unknown) household members: children (units unknown) (unknown) (unknown) (no date) (unknown) (unknown) hydroxyzine HCl 50 m g tablet (units unknown) (unknown) (unknown) (no date) (unknown) (unknown) indicated many bacteria alcohol level was 338 and COVID-19 PCR done on July 12 (units unknown) (unknown) (unknown) (no date) (unknown) (unknown) marital status: (units unknown) (unknown) (unknown) (no date) (unknown) (unknown) mg IV BID for completion of treatment.. She is afebrile, blood pressure 93/54 (units unknown) (unknown) (unknown) (no date) (unknown) (unknown) multivitamin with folic acid [Tab-A-Kael] 400 mcg Tablet (units unknown) (unknown) (unknown) (no date) (unknown) (unknown) notes, Sarah Freemanis a 31-year-old female with history of alcohol abuse and (units unknown) (unknown) (unknown) (no date) (unknown) (unknown) number of children: 1 (units unknown) (unknown) (unknown) (no date) (unknown) (unknown) occupational status: employed (units unknown) (unknown) (unknown) (no date) (unknown) (unknown) pantoprazole 40 mg Tablet,Delayed Release (Dr/Ec) (units unknown) (unknown) (unknown) (no date) (unknown) (unknown) presentation, and stated that she took the bottle upside down and started (units unknown) (unknown) (unknown) (no date) (unknown) (unknown) prior to presentatio n was the beginning of the relapse and she was drinking (units unknown) (unknown) (unknown) (no date) (unknown) (unknown) quetiapine 300 mg tablet (units unknown) (unknown) (unknown) (no date) (unknown) (unknown) second hand exposure : No (growing up as a child - not currently) (units unknown) (unknown) (unknown) (no date) (unknown) (unknown) she is recently relapsed due to a divorce with her .? She used to be a (units unknown) (unknown) (unknown) (no date) (unknown) (unknown) special renee needs: No (units unknown) (unknown) (unknown) (no date) (unknown) (unknown) stating that she drinks vodka and admited to drinking heavily on the day of (units unknown) (unknown) (unknown) (no date) (unknown) (unknown) substance use type: does not use (units unknown) (unknown) (unknown) (no date) (unknown) (unknown) the past.? She has been sober for a total of 18 months previously.'? (units unknown) (unknown) (unknown) (no date) (unknown) (unknown) thiamine mononitrate (vit B1) 100 mg Tablet (units unknown) (unknown) (unknown) (no date) (unknown) (unknown) to the [facility] emergency department on 06/18/2022 and a few days prior to that (units unknown) (unknown) (unknown) (no date) (unknown) (unknown) was negative. (units unknown) (unknown) (unknown) (no date) (unknown) (unknown) weighs 49.8 kg with a BMI of 20.1.? WBC is 3.3 hemoglobin and hematocrit are (units unknown) (unknown) (unknown) (no date) (unknown) (unknown) with a blood alcohol in 300s, she was last here in the emergency department in (units unknown) (unknown) Result panel 2215 (unknown) (no date) (unknown) (unknown) (no value) (units unknown) (unknown) (unknown) (no date) (unknown) (unknown) (past 8 hours): (units unknown) (unknown) (unknown) (no date) (unknown) (unknown) [id number] (units unknown) (unknown) (unknown) (no date) (unknown) (unknown) 07/12/22 16:28 (units unknown) (unknown) (unknown) (no date) (unknown) (unknown) 07/13/22 07/14/22 07/14/22 (units unknown) (unknown) (unknown) (no date) (unknown) (unknown) 07/13/22 06:12 (units unknown) (unknown) (unknown) (no date) (unknown) (unknown) 07/13/22 06:41 (units unknown) (unknown) (unknown) (no date) (unknown) (unknown) 07/13/22 11:35 (units unknown) (unknown) (unknown) (no date) (unknown) (unknown) 07/14/22 08:20 (units unknown) (unknown) (unknown) (no date) (unknown) (unknown) 07/14/22 1707 (units unknown) (unknown) (unknown) (no date) (unknown) (unknown) 07/14/22 (units unknown) (unknown) (unknown) (no date) (unknown) (unknown) 09:00 07/14/22 (units unknown) (unknown) (unknown) (no date) (unknown) (unknown) 09:12 (units unknown) (unknown) (unknown) (no date) (unknown) (unknown) 1 tab PO DAILY Qty: 30 0RF (units unknown) (unknown) (unknown) (no date) (unknown) (unknown) 10 mg PO DAILY (units unknown) (unknown) (unknown) (no date) (unknown) (unknown) 100 mg PO DAILY Qty: 30 0RF (units unknown) (unknown) (unknown) (no date) (unknown) (unknown) 10:00 07/14/22 (units unknown) (unknown) (unknown) (no date) (unknown) (unknown) 10:04 (units unknown) (unknown) (unknown) (no date) (unknown) (unknown) 15:28 08:20 08:20 (units unknown) (unknown) (unknown) (no date) (unknown) (unknown) 20 and she was deeme d to medically unstable for transfer to rehab, ED requested (units unknown) (unknown) (unknown) (no date) (unknown) (unknown) 300 mg PO DAILY (units unknown) (unknown) (unknown) (no date) (unknown) (unknown) 40 mg PO 0700 Qty: 3 0 0RF (units unknown) (unknown) (unknown) (no date) (unknown) (unknown) 50 mg PO DAILY (units unknown) (unknown) (unknown) (no date) (unknown) (unknown) ALT 17 (units unknown) (unknown) (unknown) (no date) (unknown) (unknown) AST 45 H (units unknown) (unknown) (unknown) (no date) (unknown) (unknown) Abd: soft, non-tender, normoactive BTs (units unknown) (unknown) (unknown) (no date) (unknown) (unknown) Acute alcohol intoxication and withdrawal (units unknown) (unknown) (unknown) (no date) (unknown) (unknown) Age/Sex: 31 / F (units unknown) (unknown) (unknown) (no date) (unknown) (unknown) Albumin 3.5 (units unknown) (unknown) (unknown) (no date) (unknown) (unknown) Albumin/Globulin Ratio 1.3 (units unknown) (unknown) (unknown) (no date) (unknown) (unknown) Alcohol withdrawal delirium, acute, hyperactive (units unknown) (unknown) (unknown) (no date) (unknown) (unknown) Alcoholism (units unknown) (unknown) (unknown) (no date) (unknown) (unknown) Alkaline Phosphatase 68 (units unknown) (unknown) (unknown) (no date) (unknown) (unknown) Anemia (-2018) (units unknown) (unknown) (unknown) (no date) (unknown) (unknown) BUN 5 L (units unknown) (unknown) (unknown) (no date) (unknown) (unknown) BUN/Creatinine Ratio 7.9 (units unknown) (unknown) (unknown) (no date) (unknown) (unknown) Vanesa Hall MD (units unknown) (unknown) (unknown) (no date) (unknown) (unknown) Baso # (Auto) 0 (units unknown) (unknown) (unknown) (no date) (unknown) (unknown) Baso % (Auto) 0.8 (units unknown) (unknown) (unknown) (no date) (unknown) (unknown) Blood Pressure 106/74 (units unknown) (unknown) (unknown) (no date) (unknown) (unknown) Blood Pressure 112/63 (units unknown) (unknown) (unknown) (no date) (unknown) (unknown) CV: heart sounds normal, no murmur or rubs (units unknown) (unknown) (unknown) (no date) (unknown) (unknown) Calcium 8.5 (units unknown) (unknown) (unknown) (no date) (unknown) (unknown) Carbon Dioxide 27 (units unknown) (unknown) (unknown) (no date) (unknown) (unknown) Chief complaint: Acute alcohol withdrawal (units unknown) (unknown) (unknown) (no date) (unknown) (unknown) Chloride 101 (units unknown) (unknown) (unknown) (no date) (unknown) (unknown) Cognitive/behavioral status at discharge: at baseline, oriented (units unknown) (unknown) (unknown) (no date) (unknown) (unknown) Comment: (units unknown) (unknown) (unknown) (no date) (unknown) (unknown) Consult to Dietitian , Adult Routine (units unknown) (unknown) (unknown) (no date) (unknown) (unknown) 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 (units unknown) (unknown) (unknown) (no date) (unknown) (unknown) Consult to 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 (units unknown) (unknown) (unknown) (no date) (unknown) (unknown) Consult to 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 (units unknown) (unknown) (unknown) (no date) (unknown) (unknown) Consulting Provider: [employer] (units unknown) (unknown) (unknown) (no date) (unknown) (unknown) Consults: (units unknown) (unknown) (unknown) (no date) (unknown) (unknown) Continued (units unknown) (unknown) (unknown) (no date) (unknown) (unknown) Creatinine 0.63 (units unknown) (unknown) (unknown) (no date) (unknown) (unknown) : 1990 Acct:[id number] (units unknown) (unknown) (unknown) (no date) (unknown) (unknown) Date Patient Seen: 07/14/22 (units unknown) (unknown) (unknown) (no date) (unknown) (unknown) Date of Service: 07/13/22 (units unknown) (unknown) (unknown) (no date) (unknown) (unknown) Date of admission: (units unknown) (unknown) (unknown) (no date) (unknown) (unknown) Deep Vein Thrombosis/Pulmonary Embolism Present on Admission: Yes (units unknown) (unknown) (unknown) (no date) (unknown) (unknown) Discharge Data (units unknown) (unknown) (unknown) (no date) (unknown) (unknown) Discharge Date: 07/14/22 (units unknown) (unknown) (unknown) (no date) (unknown) (unknown) Discharge Diagnosis: (units unknown) (unknown) (unknown) (no date) (unknown) (unknown) Discharge Plan (units unknown) (unknown) (unknown) (no date) (unknown) (unknown) Discharge Providers (units unknown) (unknown) (unknown) (no date) (unknown) (unknown) Discharge Summary (units unknown) (unknown) (unknown) (no date) (unknown) (unknown) Discharge orders + Medications (units unknown) (unknown) (unknown) (no date) (unknown) (unknown) Discharge provider: (units unknown) (unknown) (unknown) (no date) (unknown) (unknown) Eos # (Auto) 100 (units unknown) (unknown) (unknown) (no date) (unknown) (unknown) Eos % (Auto) 2.4 (units unknown) (unknown) (unknown) (no date) (unknown) (unknown) Estimated GFR > 60 (units unknown) (unknown) (unknown) (no date) (unknown) (unknown) Exam Narrative: (units unknown) (unknown) (unknown) (no date) (unknown) (unknown) Exam (units unknown) (unknown) (unknown) (no date) (unknown) (unknown) Extremities: moves all 4 extremities (units unknown) (unknown) (unknown) (no date) (unknown) (unknown) Family History (units unknown) (unknown) (unknown) (no date) (unknown) (unknown) Family/Other Alcoholism (units unknown) (unknown) (unknown) (no date) (unknown) (unknown) Family/Other Diabete s mellitus (units unknown) (unknown) (unknown) (no date) (unknown) (unknown) Father Alcoholism (units unknown) (unknown) (unknown) (no date) (unknown) (unknown) Tonia Schneider MD [Primary Care Provider] (units unknown) (unknown) (unknown) (no date) (unknown) (unknown) Follow up/Referrals: (units unknown) (unknown) (unknown) (no date) (unknown) (unknown) Functional status at discharge: independent ambulation (units unknown) (unknown) (unknown) (no date) (unknown) (unknown) Gen: Arousable, female, NAD (units unknown) (unknown) (unknown) (no date) (unknown) (unknown) Globulin 2.7 (units unknown) (unknown) (unknown) (no date) (unknown) (unknown) Glucose 95 (units unknown) (unknown) (unknown) (no date) (unknown) (unknown) Grandfather Smoker (units unknown) (unknown) (unknown) (no date) (unknown) (unknown) Grandfather Unknown whether patient has any health problems (units unknown) (unknown) (unknown) (no date) (unknown) (unknown) Grandmother Diabetes mellitus (units unknown) (unknown) (unknown) (no date) (unknown) (unknown) Grandmother Hypoglycemia (units unknown) (unknown) (unknown) (no date) (unknown) (unknown) H/O dilation and curettage (-12/14/16) (units unknown) (unknown) (unknown) (no date) (unknown) (unknown) H/O wisdom tooth extraction (-2013) (units unknown) (unknown) (unknown) (no date) (unknown) (unknown) HEENT: normocephalic , atraumatic, conjunctiva clear, pupils reactive to light, (units unknown) (unknown) (unknown) (no date) (unknown) (unknown) Has provider been notified: Yes (units unknown) (unknown) (unknown) (no date) (unknown) (unknown) Hct 30.0 L (units unknown) (unknown) (unknown) (no date) (unknown) (unknown) Hgb 10.2 L (units unknown) (unknown) (unknown) (no date) (unknown) (unknown) History of Present Illness (units unknown) (unknown) (unknown) (no date) (unknown) (unknown) Hospital Course (units unknown) (unknown) (unknown) (no date) (unknown) (unknown) Hospital Course: (units unknown) (unknown) (unknown) (no date) (unknown) (unknown) Insomnia (units unknown) (unknown) (unknown) (no date) (unknown) (unknown) [address] [address] (units unknown) (unknown) (unknown) (no date) (unknown) (unknown) May of 2022 with similar symptoms.? She came in complaining of needing help, (units unknown) (unknown) (unknown) (no date) (unknown) (unknown) Laboratory Results - last 24 hr (units unknown) (unknown) (unknown) (no date) (unknown) (unknown) Labs (units unknown) (unknown) (unknown) (no date) (unknown) (unknown) Labs: (units unknown) (unknown) (unknown) (no date) (unknown) (unknown) Lymph # (Auto) 1100 (units unknown) (unknown) (unknown) (no date) (unknown) (unknown) Lymph % (Auto) 30.8 (units unknown) (unknown) (unknown) (no date) (unknown) (unknown) MCH 26.5 (units unknown) (unknown) (unknown) (no date) (unknown) (unknown) MCHC 34.1 (units unknown) (unknown) (unknown) (no date) (unknown) (unknown) MCV 77.8 L (units unknown) (unknown) (unknown) (no date) (unknown) (unknown) Magnesium 1.9 (units unknown) (unknown) (unknown) (no date) (unknown) (unknown) Medical History (Updated 07/13/22 @ 11:47 by Gerardo Mccormick MD) (units unknown) (unknown) (unknown) (no date) (unknown) (unknown) Menometrorrhagia (units unknown) (unknown) (unknown) (no date) (unknown) (unknown) [place] # (Auto) 200 (units unknown) (unknown) (unknown) (no date) (unknown) (unknown) [place] % (Auto) 5.3 (units unknown) (unknown) (unknown) (no date) (unknown) (unknown) Mother Diabetes mellitus (units unknown) (unknown) (unknown) (no date) (unknown) (unknown) Tonia Schneider MD (units unknown) (unknown) (unknown) (no date) (unknown) (unknown) Narrative (units unknown) (unknown) (unknown) (no date) (unknown) (unknown) Narrative: (units unknown) (unknown) (unknown) (no date) (unknown) (unknown) Nasal Screen MRSA (PCR) Not detected (units unknown) (unknown) (unknown) (no date) (unknown) (unknown) Neck: supple, full ROM, no JVD, trachea is midline (units unknown) (unknown) (unknown) (no date) (unknown) (unknown) Neuro: oriented, no localizing signs (units unknown) (unknown) (unknown) (no date) (unknown) (unknown) Neut # (Auto) 2100 (units unknown) (unknown) (unknown) (no date) (unknown) (unknown) Neut % (Auto) 60.7 (units unknown) (unknown) (unknown) (no date) (unknown) (unknown) New (units unknown) (unknown) (unknown) (no date) (unknown) (unknown) Obesity (units unknown) (unknown) (unknown) (no date) (unknown) (unknown) Objective (units unknown) (unknown) (unknown) (no date) (unknown) (unknown) Overall status at discharge: patient is back to baseline (units unknown) (unknown) (unknown) (no date) (unknown) (unknown) Overweight (units unknown) (unknown) (unknown) (no date) (unknown) (unknown) Oxygen Delivery Method Room Air (units unknown) (unknown) (unknown) (no date) (unknown) (unknown) PFSH (units unknown) (unknown) (unknown) (no date) (unknown) (unknown) Patient Disposition: Home (units unknown) (unknown) (unknown) (no date) (unknown) (unknown) Patient provided a history for 'I went on a castañeda' for 12 days. Per the ED (units unknown) (unknown) (unknown) (no date) (unknown) (unknown) Patient: Sarah Connors MR#: M (units unknown) (unknown) (unknown) (no date) (unknown) (unknown) Plt Count 116 L (units unknown) (unknown) (unknown) (no date) (unknown) (unknown) Potassium 4.2 (units unknown) (unknown) (unknown) (no date) (unknown) (unknown) Prescriptions: (units unknown) (unknown) (unknown) (no date) (unknown) (unknown) Primary Care Provider: Tonia Schneider (units unknown) (unknown) (unknown) (no date) (unknown) (unknown) Primary care physician: (units unknown) (unknown) (unknown) (no date) (unknown) (unknown) Provider (units unknown) (unknown) (unknown) (no date) (unknown) (unknown) Provider: Vanesa Hall MD (units unknown) (unknown) (unknown) (no date) (unknown) (unknown) Psyche: appears calm , unable to assess fully (units unknown) (unknown) (unknown) (no date) (unknown) (unknown) Pulse Oximetry 98 97 (units unknown) (unknown) (unknown) (no date) (unknown) (unknown) Pulse Oximetry 98 98 (units unknown) (unknown) (unknown) (no date) (unknown) (unknown) Pulse Rate 62 63 (units unknown) (unknown) (unknown) (no date) (unknown) (unknown) Pulse Rate 66 67 (units unknown) (unknown) (unknown) (no date) (unknown) (unknown) Quality (units unknown) (unknown) (unknown) (no date) (unknown) (unknown) RBC 3.85 L (units unknown) (unknown) (unknown) (no date) (unknown) (unknown) RDW 17.5 H (units unknown) (unknown) (unknown) (no date) (unknown) (unknown) Reason For Exam: EHOH (units unknown) (unknown) (unknown) (no date) (unknown) (unknown) 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 (units unknown) (unknown) (unknown) (no date) (unknown) (unknown) Resp: Lungs CTA, non-labored breathing (units unknown) (unknown) (unknown) (no date) (unknown) (unknown) S/P myringotomy with insertion of tube (units unknown) (unknown) (unknown) (no date) (unknown) (unknown) (spontaneous vaginal delivery) (-09/05/18) (units unknown) (unknown) (unknown) (no date) (unknown) (unknown) She remained in the ED awaiting a bed and was receiving oral Ativan, but (units unknown) (unknown) (unknown) (no date) (unknown) (unknown) Signed By:<Electronically signed by Vanesa Hall MD> (units unknown) (unknown) (unknown) (no date) (unknown) (unknown) Skin: no lesions or rashes, dry and intact (units unknown) (unknown) (unknown) (no date) (unknown) (unknown) Smoker (units unknown) (unknown) (unknown) (no date) (unknown) (unknown) Smoking Status: Former smoker (units unknown) (unknown) (unknown) (no date) (unknown) (unknown) Social History (units unknown) (unknown) (unknown) (no date) (unknown) (unknown) Sodium 132 L (units unknown) (unknown) (unknown) (no date) (unknown) (unknown) Stand Alone Forms: Patient Portal/API, Stroke Signs + Symptoms (units unknown) (unknown) (unknown) (no date) (unknown) (unknown) Status at Discharge (units unknown) (unknown) (unknown) (no date) (unknown) (unknown) Summary (units unknown) (unknown) (unknown) (no date) (unknown) (unknown) Surgical History (units unknown) (unknown) (unknown) (no date) (unknown) (unknown) The day after admission the patient was titrated off Precedex well and eager to (units unknown) (unknown) (unknown) (no date) (unknown) (unknown) This patient was treated off?precedex infusion, she felt well and alert and (units unknown) (unknown) (unknown) (no date) (unknown) (unknown) Total Bilirubin 0.7 (units unknown) (unknown) (unknown) (no date) (unknown) (unknown) Total Protein 6.2 L (units unknown) (unknown) (unknown) (no date) (unknown) (unknown) UTI, acute but asymptomatic (units unknown) (unknown) (unknown) (no date) (unknown) (unknown) VTE (units unknown) (unknown) (unknown) (no date) (unknown) (unknown) Visit Report/Discharge Packet (units unknown) (unknown) (unknown) (no date) (unknown) (unknown) Vital Signs (units unknown) (unknown) (unknown) (no date) (unknown) (unknown) WBC 3.5 L (units unknown) (unknown) (unknown) (no date) (unknown) (unknown) [Embedded Image Not Available] (units unknown) (unknown) (unknown) (no date) (unknown) (unknown) a BMI of 20.1.? WBC is 3.3 hemoglobin and hematocrit are 11.5 and 35.3 (units unknown) (unknown) (unknown) (no date) (unknown) (unknown) alcohol intake: former (units unknown) (unknown) (unknown) (no date) (unknown) (unknown) an ICU bed. She was transferred to the ICU for Precedex infusion. She also had a (units unknown) (unknown) (unknown) (no date) (unknown) (unknown) appears to have limited history currently due to intoxication.? She stated that (units unknown) (unknown) (unknown) (no date) (unknown) (unknown) bacteria alcohol level was 338 and COVID-19 PCR done on July 12 was negative. (units unknown) (unknown) (unknown) (no date) (unknown) (unknown) cephalexin for this and was transitioned to IV Cipro 400 mg IV BID for (units unknown) (unknown) (unknown) (no date) (unknown) (unknown) chucking from it.? She stated that she drank 750 mL at a time.? This 3 weeks ago (units unknown) (unknown) (unknown) (no date) (unknown) (unknown) completion of treatment.. She was afebrile, blood pressure 93/54 heart rate 119 (units unknown) (unknown) (unknown) (no date) (unknown) (unknown) concern for urinary tract infection and had been given one dose of oral (units unknown) (unknown) (unknown) (no date) (unknown) (unknown) current occupational exposures/hazards: Yes (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 with Pandemic ) (units unknown) (unknown) (unknown) (no date) (unknown) (unknown) daily since then.? She wants rehab.? She has been [place] [facility] [place] in (units unknown) (unknown) (unknown) (no date) (unknown) (unknown) developed increasing agitation and then DTs. Her CIWA score went from 12 to over (units unknown) (unknown) (unknown) (no date) (unknown) (unknown) discharge. (units unknown) (unknown) (unknown) (no date) (unknown) (unknown) eager to go home. Yo u confirm that she is connected the with a alcohol depend (units unknown) (unknown) (unknown) (no date) (unknown) (unknown) education level: college (units unknown) (unknown) (unknown) (no date) (unknown) (unknown) ence support group. 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 Patient was discharged in stable condition. (units unknown) (unknown) (unknown) (no date) (unknown) (unknown) household members: children (units unknown) (unknown) (unknown) (no date) (unknown) (unknown) hydroxyzine HCl 50 m g tablet (units unknown) (unknown) (unknown) (no date) (unknown) (unknown) marital status: (units unknown) (unknown) (unknown) (no date) (unknown) (unknown) multivitamin with folic acid [Tab-A-Kael] 400 mcg Tablet (units unknown) (unknown) (unknown) (no date) (unknown) (unknown) notes, Sarah Freemanis a 31-year-old female with history of alcohol abuse and (units unknown) (unknown) (unknown) (no date) (unknown) (unknown) number of children: 1 (units unknown) (unknown) (unknown) (no date) (unknown) (unknown) occupational status: employed (units unknown) (unknown) (unknown) (no date) (unknown) (unknown) pantoprazole 40 mg Tablet,Delayed Release (Dr/Ec) (units unknown) (unknown) (unknown) (no date) (unknown) (unknown) presentation, and stated that she took the bottle upside down and started (units unknown) (unknown) (unknown) (no date) (unknown) (unknown) prior to presentatio n was the beginning of the relapse and she was drinking (units unknown) (unknown) (unknown) (no date) (unknown) (unknown) quetiapine 300 mg tablet (units unknown) (unknown) (unknown) (no date) (unknown) (unknown) respectively glucose is 111 calcium 8.0 AST 67 urinalysis indicated many (units unknown) (unknown) (unknown) (no date) (unknown) (unknown) respiratory rate 18 oxygen saturation of 97% on room air she weighs 49.8 kg with (units unknown) (unknown) (unknown) (no date) (unknown) (unknown) sclera non-icteric, oral mucosa pink and moist (units unknown) (unknown) (unknown) (no date) (unknown) (unknown) second hand exposure : No (growing up as a child - not currently) (units unknown) (unknown) (unknown) (no date) (unknown) (unknown) she is recently relapsed due to a divorce with her .? She used to be a (units unknown) (unknown) (unknown) (no date) (unknown) (unknown) special renee needs: No (units unknown) (unknown) (unknown) (no date) (unknown) (unknown) stating that she drinks vodka and admited to drinking heavily on the day of (units unknown) (unknown) (unknown) (no date) (unknown) (unknown) substance use type: does not use (units unknown) (unknown) (unknown) (no date) (unknown) (unknown) the past.? She has been sober for a total of 18 months previously.'? (units unknown) (unknown) (unknown) (no date) (unknown) (unknown) thiamine mononitrate (vit B1) 100 mg Tablet (units unknown) (unknown) (unknown) (no date) (unknown) (unknown) to the [facility] emergency department on 06/18/2022 and a few days prior to that (units unknown) (unknown) (unknown) (no date) (unknown) (unknown) with a blood alcohol in 300s, she was last here in the emergency department in (units unknown) (unknown) Result panel 2216 (unknown) (no date) (unknown) (unknown) 0 /ul (unknown) (unknown) (no date) (unknown) (unknown) 1.0 % (unknown) (unknown) (no date) (unknown) (unknown) 10.6 g/dl (unknown) (unknown) (no date) (unknown) (unknown) 100 /ul (unknown) (unknown) (no date) (unknown) (unknown) 1200 /ul (unknown) (unknown) (no date) (unknown) (unknown) 19.5 % (unknown) (unknown) (no date) (unknown) (unknown) 229 x10 3/ul (unknown) (unknown) (no date) (unknown) (unknown) 26.4 pg (unknown) (unknown) (no date) (unknown) (unknown) 2600 /ul (unknown) (unknown) (no date) (unknown) (unknown) 27.8 % (unknown) (unknown) (no date) (unknown) (unknown) 3.3 % (unknown) (unknown) (no date) (unknown) (unknown) 300 /ul (unknown) (unknown) (no date) (unknown) (unknown) 32.3 % (unknown) (unknown) (no date) (unknown) (unknown) 32.8 % (unknown) (unknown) (no date) (unknown) (unknown) 4.02 x10 6/ul (unknown) (unknown) (no date) (unknown) (unknown) 4.4 x10 3/ul (unknown) (unknown) (no date) (unknown) (unknown) 60.0 % (unknown) (unknown) (no date) (unknown) (unknown) 7.9 % (unknown) (unknown) (no date) (unknown) (unknown) 80.4 fl (unknown) Result panel 2217 (unknown) (no date) (unknown) (unknown) (no value) (units unknown) (unknown) (unknown) (no date) (unknown) (unknown) [id number] (units unknown) (unknown) (unknown) (no date) (unknown) (unknown) 07/31/22 12:36 (units unknown) (unknown) (unknown) (no date) (unknown) (unknown) 07/31/22 12:40 (units unknown) (unknown) (unknown) (no date) (unknown) (unknown) 07/31/22 Range/Units (units unknown) (unknown) (unknown) (no date) (unknown) (unknown) 07/31/22 (units unknown) (unknown) (unknown) (no date) (unknown) (unknown) 1 tab PO DAILY Qty: 30 0RF (units unknown) (unknown) (unknown) (no date) (unknown) (unknown) 10 mg PO DAILY (units unknown) (unknown) (unknown) (no date) (unknown) (unknown) 100 mg PO DAILY Qty: 30 0RF (units unknown) (unknown) (unknown) (no date) (unknown) (unknown) 12:30 (units unknown) (unknown) (unknown) (no date) (unknown) (unknown) 12:40 (units unknown) (unknown) (unknown) (no date) (unknown) (unknown) 300 mg PO DAILY (units unknown) (unknown) (unknown) (no date) (unknown) (unknown) 40 mg PO 0700 Qty: 3 0 0RF (units unknown) (unknown) (unknown) (no date) (unknown) (unknown) 50 mg PO DAILY (units unknown) (unknown) (unknown) (no date) (unknown) (unknown) Age/Sex: 31 / F (units unknown) (unknown) (unknown) (no date) (unknown) (unknown) Alcohol withdrawal delirium, acute, hyperactive (units unknown) (unknown) (unknown) (no date) (unknown) (unknown) Alcoholism (units unknown) (unknown) (unknown) (no date) (unknown) (unknown) Allergies (units unknown) (unknown) (unknown) (no date) (unknown) (unknown) Allergy/AdvReac Type Severity Reaction Status Date / Time (units unknown) (unknown) (unknown) (no date) (unknown) (unknown) Anemia (-2018) (units unknown) (unknown) (unknown) (no date) (unknown) (unknown) Baso # (Auto) 0 (0-100) /uL (units unknown) (unknown) (unknown) (no date) (unknown) (unknown) Baso % (Auto) 1.0 (0-2) % (units unknown) (unknown) (unknown) (no date) (unknown) (unknown) Blood Pressure 137/8 4 07/31/22 12:30 (units unknown) (unknown) (unknown) (no date) (unknown) (unknown) Blood Pressure 137/84 (units unknown) (unknown) (unknown) (no date) (unknown) (unknown) Chief complaint: Toxicology Problem (units unknown) (unknown) (unknown) (no date) (unknown) (unknown) Complete Blood Count AUTO DIFF Stat (units unknown) (unknown) (unknown) (no date) (unknown) (unknown) Comprehensive Metabolic Panel Stat (units unknown) (unknown) (unknown) (no date) (unknown) (unknown) Course (units unknown) (unknown) (unknown) (no date) (unknown) (unknown) : 1990 Acct:[id number] (units unknown) (unknown) (unknown) (no date) (unknown) (unknown) Date of Service: 07/31/22 (units unknown) (unknown) (unknown) (no date) (unknown) (unknown) Departure (units unknown) (unknown) (unknown) (no date) (unknown) (unknown) Discharge Plan (units unknown) (unknown) (unknown) (no date) (unknown) (unknown) Discontinued Medications (units unknown) (unknown) (unknown) (no date) (unknown) (unknown) Documented By: GRADY (units unknown) (unknown) (unknown) (no date) (unknown) (unknown) ED Orders (units unknown) (unknown) (unknown) (no date) (unknown) (unknown) ER Physician: Will Benitez D.O. (units unknown) (unknown) (unknown) (no date) (unknown) (unknown) Emergency Report (units unknown) (unknown) (unknown) (no date) (unknown) (unknown) Eos # (Auto) 100 (0-450) /uL (units unknown) (unknown) (unknown) (no date) (unknown) (unknown) Eos % (Auto) 3.3 (2-4) % (units unknown) (unknown) (unknown) (no date) (unknown) (unknown) Ethanol (ETOH) Stat (units unknown) (unknown) (unknown) (no date) (unknown) (unknown) Exam (units unknown) (unknown) (unknown) (no date) (unknown) (unknown) Family History (units unknown) (unknown) (unknown) (no date) (unknown) (unknown) Family/Other Alcoholism (units unknown) (unknown) (unknown) (no date) (unknown) (unknown) Family/Other Diabete s mellitus (units unknown) (unknown) (unknown) (no date) (unknown) (unknown) Father Alcoholism (units unknown) (unknown) (unknown) (no date) (unknown) (unknown) Tonia Schneider MD [Primary Care Provider] (units unknown) (unknown) (unknown) (no date) (unknown) (unknown) General (units unknown) (unknown) (unknown) (no date) (unknown) (unknown) Grandfather Smoker (units unknown) (unknown) (unknown) (no date) (unknown) (unknown) Grandfather Unknown whether patient has any health problems (units unknown) (unknown) (unknown) (no date) (unknown) (unknown) Grandmother Diabetes mellitus (units unknown) (unknown) (unknown) (no date) (unknown) (unknown) Grandmother Hypoglycemia (units unknown) (unknown) (unknown) (no date) (unknown) (unknown) H/O dilation and curettage (-12/14/16) (units unknown) (unknown) (unknown) (no date) (unknown) (unknown) H/O wisdom tooth extraction (-2013) (units unknown) (unknown) (unknown) (no date) (unknown) (unknown) HPI - General Adult (units unknown) (unknown) (unknown) (no date) (unknown) (unknown) Hct 32.3 L (36-46) % (units unknown) (unknown) (unknown) (no date) (unknown) (unknown) Hgb 10.6 L (12.0-16.0) g/dL (units unknown) (unknown) (unknown) (no date) (unknown) (unknown) Home Medications (units unknown) (unknown) (unknown) (no date) (unknown) (unknown) Initial Vital Signs (units unknown) (unknown) (unknown) (no date) (unknown) (unknown) Initial Vital Signs: (units unknown) (unknown) (unknown) (no date) (unknown) (unknown) Insomnia (units unknown) (unknown) (unknown) (no date) (unknown) (unknown) [address] [id number] (units unknown) (unknown) (unknown) (no date) (unknown) (unknown) Lab Data (units unknown) (unknown) (unknown) (no date) (unknown) (unknown) Lab Results (units unknown) (unknown) (unknown) (no date) (unknown) (unknown) Labs: (units unknown) (unknown) (unknown) (no date) (unknown) (unknown) Last Admin: 07/31/22 12:59 Dose: 1 mg (units unknown) (unknown) (unknown) (no date) (unknown) (unknown) Last Admin: 07/31/22 12:59 Dose: 260 mg (units unknown) (unknown) (unknown) (no date) (unknown) (unknown) Last Admin: 07/31/22 12:59 Dose: 408 mls/hr (units unknown) (unknown) (unknown) (no date) (unknown) (unknown) Last Admin: 07/31/22 13:00 Dose: 1 tab (units unknown) (unknown) (unknown) (no date) (unknown) (unknown) Lipase Stat (units unknown) (unknown) (unknown) (no date) (unknown) (unknown) Lorazepam (Lorazepam 2 Mg/Ml Inj) 1 mg IV NOW ONE (units unknown) (unknown) (unknown) (no date) (unknown) (unknown) Lymph # (Auto) 1200 (1228-2459) /uL (units unknown) (unknown) (unknown) (no date) (unknown) (unknown) Lymph % (Auto) 27.8 (25-40) % (units unknown) (unknown) (unknown) (no date) (unknown) (unknown) MCH 26.4 (26-34) PG (units unknown) (unknown) (unknown) (no date) (unknown) (unknown) MCHC 32.8 (30-36) % (units unknown) (unknown) (unknown) (no date) (unknown) (unknown) MCV 80.4 (80-100) fL (units unknown) (unknown) (unknown) (no date) (unknown) (unknown) Medical Decision Making (units unknown) (unknown) (unknown) (no date) (unknown) (unknown) Medical History (Updated 07/18/22 @ 18:46 by Juliet Paz [facility]) (units unknown) (unknown) (unknown) (no date) (unknown) (unknown) Medication Instructions Recorded Confirmed (units unknown) (unknown) (unknown) (no date) (unknown) (unknown) Medication Instructions Recorded (units unknown) (unknown) (unknown) (no date) (unknown) (unknown) Menometrorrhagia (units unknown) (unknown) (unknown) (no date) (unknown) (unknown) Mode of arrival: Ambulatory (units unknown) (unknown) (unknown) (no date) (unknown) (unknown) [place] # (Auto) 300 (0-900) /uL (units unknown) (unknown) (unknown) (no date) (unknown) (unknown) [place] % (Auto) 7.9 (3-14) % (units unknown) (unknown) (unknown) (no date) (unknown) (unknown) Mother Diabetes mellitus (units unknown) (unknown) (unknown) (no date) (unknown) (unknown) Multivitamins (Multivitamin 1 Tablet) 1 tab PO DAILY SADNY (units unknown) (unknown) (unknown) (no date) (unknown) (unknown) Neut # (Auto) 2600 (5716-0239) /uL (units unknown) (unknown) (unknown) (no date) (unknown) (unknown) Neut % (Auto) 60.0 (50-75) % (units unknown) (unknown) (unknown) (no date) (unknown) (unknown) No Action (units unknown) (unknown) (unknown) (no date) (unknown) (unknown) Obesity (units unknown) (unknown) (unknown) (no date) (unknown) (unknown) Ordered: (units unknown) (unknown) (unknown) (no date) (unknown) (unknown) Orders (units unknown) (unknown) (unknown) (no date) (unknown) (unknown) Overweight (units unknown) (unknown) (unknown) (no date) (unknown) (unknown) Oxygen Delivery Method Room Air 07/31/22 12:30 (units unknown) (unknown) (unknown) (no date) (unknown) (unknown) Oxygen Delivery Method Room Air (units unknown) (unknown) (unknown) (no date) (unknown) (unknown) Patient History (units unknown) (unknown) (unknown) (no date) (unknown) (unknown) Patient: Sarah Connors MR#: M (units unknown) (unknown) (unknown) (no date) (unknown) (unknown) Phenobarbital (Phenobarbital 65 Mg/Ml Vial) 260 mg IV NOW ONE (units unknown) (unknown) (unknown) (no date) (unknown) (unknown) Plt Count 229 (150-400) X103/uL (units unknown) (unknown) (unknown) (no date) (unknown) (unknown) Test Serum,Qual Stat (units unknown) (unknown) (unknown) (no date) (unknown) (unknown) Prescriptions: (units unknown) (unknown) (unknown) (no date) (unknown) (unknown) Previous Rx's (units unknown) (unknown) (unknown) (no date) (unknown) (unknown) Pulse Oximetry 100 07/31/22 12:30 (units unknown) (unknown) (unknown) (no date) (unknown) (unknown) Pulse Oximetry 100 (units unknown) (unknown) (unknown) (no date) (unknown) (unknown) Pulse Rate 68 07/31/22 12:30 (units unknown) (unknown) (unknown) (no date) (unknown) (unknown) Pulse Rate 68 (units unknown) (unknown) (unknown) (no date) (unknown) (unknown) RBC 4.02 (4.0-5.2) X106/uL (units unknown) (unknown) (unknown) (no date) (unknown) (unknown) RDW 19.5 H (11.6-14.8) % (units unknown) (unknown) (unknown) (no date) (unknown) (unknown) Referrals: (units unknown) (unknown) (unknown) (no date) (unknown) (unknown) Related Data (units unknown) (unknown) (unknown) (no date) (unknown) (unknown) Respiratory Rate 17 07/31/22 12:30 (units unknown) (unknown) (unknown) (no date) (unknown) (unknown) Respiratory Rate 17 (units unknown) (unknown) (unknown) (no date) (unknown) (unknown) S/P myringotomy with insertion of tube (units unknown) (unknown) (unknown) (no date) (unknown) (unknown) (spontaneous vaginal delivery) (-09/05/18) (units unknown) (unknown) (unknown) (no date) (unknown) (unknown) Signed By: (units unknown) (unknown) (unknown) (no date) (unknown) (unknown) Smoker (units unknown) (unknown) (unknown) (no date) (unknown) (unknown) Smoking Status: Former smoker (units unknown) (unknown) (unknown) (no date) (unknown) (unknown) Social History (units unknown) (unknown) (unknown) (no date) (unknown) (unknown) Source: patient (units unknown) (unknown) (unknown) (no date) (unknown) (unknown) Stated complaint: SOB, tremors (units unknown) (unknown) (unknown) (no date) (unknown) (unknown) Stop: 07/31/22 12:36 (units unknown) (unknown) (unknown) (no date) (unknown) (unknown) Substance Use Type: does not use (units unknown) (unknown) (unknown) (no date) (unknown) (unknown) Surgical History (units unknown) (unknown) (unknown) (no date) (unknown) (unknown) Temperature 97.7 F 07/31/22 12:30 (units unknown) (unknown) (unknown) (no date) (unknown) (unknown) Temperature 97.7 F (units unknown) (unknown) (unknown) (no date) (unknown) (unknown) Thiamine HCl 200 mg/ Sodium (Chloride) 102 mls @ 408 mls/hr IV DAILY SANDY (units unknown) (unknown) (unknown) (no date) (unknown) (unknown) Time Seen by Provider: 07/31/22 12:35 (units unknown) (unknown) (unknown) (no date) (unknown) (unknown) Urinalysis and Microscopic Stat (units unknown) (unknown) (unknown) (no date) (unknown) (unknown) Urine Drug Screen, Rapid Stat (units unknown) (unknown) (unknown) (no date) (unknown) (unknown) Vital Signs - 8 hr (units unknown) (unknown) (unknown) (no date) (unknown) (unknown) Vital Signs (units unknown) (unknown) (unknown) (no date) (unknown) (unknown) Vital signs: (units unknown) (unknown) (unknown) (no date) (unknown) (unknown) WBC 4.4 L (4.5-11.0) X103/uL (units unknown) (unknown) (unknown) (no date) (unknown) (unknown) [Embedded Image Not Available] (units unknown) (unknown) (unknown) (no date) (unknown) (unknown) [METOCLOPRAMIDE] (units unknown) (unknown) (unknown) (no date) (unknown) (unknown) alcohol intake frequency: 3 or more drinks per day (units unknown) (unknown) (unknown) (no date) (unknown) (unknown) alcohol intake: former (units unknown) (unknown) (unknown) (no date) (unknown) (unknown) current occupational exposures/hazards: Yes (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 with Pandemic ) (units unknown) (unknown) (unknown) (no date) (unknown) (unknown) education level: college 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[employer] (units unknown) (unknown) (unknown) (no date) (unknown) (unknown) fluoxetine 10 mg capsule 10 mg PO DAILY 07/13/22 07/13/22 (units unknown) (unknown) (unknown) (no date) (unknown) (unknown) fluoxetine 10 mg capsule (units unknown) (unknown) (unknown) (no date) (unknown) (unknown) household members: children (units unknown) (unknown) (unknown) (no date) (unknown) (unknown) hydrocodone [HYDROCODONE] AdvReac Unknown VOMITING Verified 07/12/22 16:18 (units unknown) (unknown) (unknown) (no date) (unknown) (unknown) hydroxyzine HCl 50 m g tablet 50 mg PO DAILY 07/13/22 07/13/22 (units unknown) (unknown) (unknown) (no date) (unknown) (unknown) hydroxyzine HCl 50 m g tablet (units unknown) (unknown) (unknown) (no date) (unknown) (unknown) marital status: (units unknown) (unknown) (unknown) (no date) (unknown) (unknown) mcg tablet (Tab-A-Kael) (units unknown) (unknown) (unknown) (no date) (unknown) (unknown) metoclopramide Allergy Mild RASH/HIVES Verified 07/12/22 16:18 (units unknown) (unknown) (unknown) (no date) (unknown) (unknown) mg tablet (units unknown) (unknown) (unknown) (no date) (unknown) (unknown) multivitamin with folic acid 400 1 tab PO DAILY #30 tabs 07/14/22 (units unknown) (unknown) (unknown) (no date) (unknown) (unknown) multivitamin with folic acid [Tab-A-Kael] 400 mcg Tablet (units unknown) (unknown) (unknown) (no date) (unknown) (unknown) number of children: 1 (units unknown) (unknown) (unknown) (no date) (unknown) (unknown) occupational status: employed (units unknown) (unknown) (unknown) (no date) (unknown) (unknown) pantoprazole 40 mg Tablet,Delayed Release (Dr/Ec) (units unknown) (unknown) (unknown) (no date) (unknown) (unknown) pantoprazole 40 mg tablet,delayed 40 mg PO 0700 #30 tabs 07/14/22 (units unknown) (unknown) (unknown) (no date) (unknown) (unknown) quetiapine 300 mg tablet 300 mg PO DAILY 07/13/22 07/13/22 (units unknown) (unknown) (unknown) (no date) (unknown) (unknown) quetiapine 300 mg tablet (units unknown) (unknown) (unknown) (no date) (unknown) (unknown) release (units unknown) (unknown) (unknown) (no date) (unknown) (unknown) second hand exposure : No (growing up as a child - not currently) (units unknown) (unknown) (unknown) (no date) (unknown) (unknown) special renee needs: No (units unknown) (unknown) (unknown) (no date) (unknown) (unknown) substance use type: does not use (units unknown) (unknown) (unknown) (no date) (unknown) (unknown) thiamine mononitrate (vit B1) 100 100 mg PO DAILY #30 tabs 07/14/22 (units unknown) (unknown) (unknown) (no date) (unknown) (unknown) thiamine mononitrate (vit B1) 100 mg Tablet (units unknown) (unknown) Result panel 2218 (unknown) (no date) (unknown) (unknown) > 60 ml/min (unknown) (unknown) (no date) (unknown) (unknown) > 60 ml/min (unknown) (unknown) (no date) (unknown) (unknown) < 10 mg/dl (unknown) (unknown) (no date) (unknown) (unknown) < 10 mg/dl (unknown) (unknown) (no date) (unknown) (unknown) 0.69 mg/dl (unknown) (unknown) (no date) (unknown) (unknown) 0.8 mg/dl (unknown) (unknown) (no date) (unknown) (unknown) 1.6 (units unknown) (unknown) (unknown) (no date) (unknown) (unknown) 102 mg/dl (unknown) (unknown) (no date) (unknown) (unknown) 102 mg/dl (unknown) (unknown) (no date) (unknown) (unknown) 105 mmol/l (unknown) (unknown) (no date) (unknown) (unknown) 12 mg/dl (unknown) (unknown) (no date) (unknown) (unknown) 137 mmol/l (unknown) (unknown) (no date) (unknown) (unknown) 17.4 (units unknown) (unknown) (unknown) (no date) (unknown) (unknown) 2.8 g/dl (unknown) (unknown) (no date) (unknown) (unknown) 24 mmol/l (unknown) (unknown) (no date) (unknown) (unknown) 25 iu/l (unknown) (unknown) (no date) (unknown) (unknown) 3.8 mmol/l (unknown) (unknown) (no date) (unknown) (unknown) 366 u/l (unknown) (unknown) (no date) (unknown) (unknown) 4.4 g/dl (unknown) (unknown) (no date) (unknown) (unknown) 7.2 g/dl (unknown) (unknown) (no date) (unknown) (unknown) 76 u/l (unknown) (unknown) (no date) (unknown) (unknown) 77 iu/l (unknown) (unknown) (no date) (unknown) (unknown) 8.7 mg/dl (unknown) Result panel 2219 (unknown) (no date) (unknown) (unknown) Negative (units unknown) (unknown) Result panel 2220 (unknown) (no date) (unknown) (unknown) >=1.030 (units unknown) (unknown) (unknown) (no date) (unknown) (unknown) 0.2 e.u./dl (unknown) (unknown) (no date) (unknown) (unknown) 1 (units unknown) (unknown) (unknown) (no date) (unknown) (unknown) 1 (units unknown) (unknown) (unknown) (no date) (unknown) (unknown) 6.0 (units unknown) (unknown) (unknown) (no date) (unknown) (unknown) NEGATIVE (units unknown) (unknown) (unknown) (no date) (unknown) (unknown) NEGATIVE g/dl (unknown) (unknown) (no date) (unknown) (unknown) SL CLOUDY (units unknown) (unknown) (unknown) (no date) (unknown) (unknown) TRACE (units unknown) (unknown) (unknown) (no date) (unknown) (unknown) YELLOW (units unknown) (unknown) (unknown) (no date) (unknown) (unknown) YELLOW (units unknown) (unknown) Result panel 2221 (unknown) (no date) (unknown) (unknown) Negative (units unknown) (unknown) (unknown) (no date) (unknown) (unknown) Normal (units unknown) (unknown) (unknown) (no date) (unknown) (unknown) Positive (units unknown) (unknown) Result panel 2222 (unknown) (no date) (unknown) (unknown) Negative (units unknown) (unknown) Result panel 2223 (unknown) (no date) (unknown) (unknown) >=1.030 (units unknown) (unknown) (unknown) (no date) (unknown) (unknown) 0.2 e.u./dl (unknown) (unknown) (no date) (unknown) (unknown) 1 (units unknown) (unknown) (unknown) (no date) (unknown) (unknown) 1 (units unknown) (unknown) (unknown) (no date) (unknown) (unknown) 5-10 /HPF (units unknown) (unknown) (unknown) (no date) (unknown) (unknown) 6.0 (units unknown) (unknown) (unknown) (no date) (unknown) (unknown) Cult Not Indicated (units unknown) (unknown) (unknown) (no date) (unknown) (unknown) NEGATIVE (units unknown) (unknown) (unknown) (no date) (unknown) (unknown) NEGATIVE g/dl (unknown) (unknown) (no date) (unknown) (unknown) None Seen (units unknown) (unknown) (unknown) (no date) (unknown) (unknown) None Seen (units unknown) (unknown) (unknown) (no date) (unknown) (unknown) SL CLOUDY (units unknown) (unknown) (unknown) (no date) (unknown) (unknown) TRACE (units unknown) (unknown) (unknown) (no date) (unknown) (unknown) YELLOW (units unknown) (unknown) (unknown) (no date) (unknown) (unknown) YELLOW (units unknown) (unknown) Result panel 2224 (unknown) (no date) (unknown) (unknown) (no value) (units unknown) (unknown) (unknown) (no date) (unknown) (unknown) [id number] (units unknown) (unknown) (unknown) (no date) (unknown) (unknown) 07/31/22 07/31/22 07/31/22 Range/Units (units unknown) (unknown) (unknown) (no date) (unknown) (unknown) 07/31/22 12:40 (units unknown) (unknown) (unknown) (no date) (unknown) (unknown) 07/31/22 13:41 (units unknown) (unknown) (unknown) (no date) (unknown) (unknown) 07/31/22 Range/Units (units unknown) (unknown) (unknown) (no date) (unknown) (unknown) 07/31/22 (units unknown) (unknown) (unknown) (no date) (unknown) (unknown) 1 tab PO DAILY Qty: 30 0RF (units unknown) (unknown) (unknown) (no date) (unknown) (unknown) 10 mg PO DAILY (units unknown) (unknown) (unknown) (no date) (unknown) (unknown) 100 mg PO DAILY Qty: 30 0RF (units unknown) (unknown) (unknown) (no date) (unknown) (unknown) 12:30 (units unknown) (unknown) (unknown) (no date) (unknown) (unknown) 12:40 12:40 12:40 (units unknown) (unknown) (unknown) (no date) (unknown) (unknown) 12:40 13:41 13:41 (units unknown) (unknown) (unknown) (no date) (unknown) (unknown) 13:41 (units unknown) (unknown) (unknown) (no date) (unknown) (unknown) 300 mg PO DAILY (units unknown) (unknown) (unknown) (no date) (unknown) (unknown) 40 mg PO 0700 Qty: 3 0 0RF (units unknown) (unknown) (unknown) (no date) (unknown) (unknown) 50 mg PO DAILY (units unknown) (unknown) (unknown) (no date) (unknown) (unknown) ALT (<35) IU/L (units unknown) (unknown) (unknown) (no date) (unknown) (unknown) ALT 25 (<35) IU/L (units unknown) (unknown) (unknown) (no date) (unknown) (unknown) AST (14-36) IU/L (units unknown) (unknown) (unknown) (no date) (unknown) (unknown) AST 77 H (14-36) IU/L (units unknown) (unknown) (unknown) (no date) (unknown) (unknown) Admin: 07/31/22 12:5 9 Dose: 408 mls/hr (units unknown) (unknown) (unknown) (no date) (unknown) (unknown) Age/Sex: 31 / F (units unknown) (unknown) (unknown) (no date) (unknown) (unknown) Albumin (3.5-5.0) g/dL (units unknown) (unknown) (unknown) (no date) (unknown) (unknown) Albumin 4.4 (3.5-5.0 ) g/dL (units unknown) (unknown) (unknown) (no date) (unknown) (unknown) Albumin/Globulin Ratio (1.0-2.8) (units unknown) (unknown) (unknown) (no date) (unknown) (unknown) Albumin/Globulin Ratio 1.6 (1.0-2.8) (units unknown) (unknown) (unknown) (no date) (unknown) (unknown) Alcohol withdrawal delirium, acute, hyperactive (units unknown) (unknown) (unknown) (no date) (unknown) (unknown) Alcoholism (units unknown) (unknown) (unknown) (no date) (unknown) (unknown) Alkaline Phosphatase (38-126) U/L (units unknown) (unknown) (unknown) (no date) (unknown) (unknown) Alkaline Phosphatase 76 (38-126) U/L (units unknown) (unknown) (unknown) (no date) (unknown) (unknown) Allergies (units unknown) (unknown) (unknown) (no date) (unknown) (unknown) Allergy/AdvReac Type Severity Reaction Status Date / Time (units unknown) (unknown) (unknown) (no date) (unknown) (unknown) Anemia (-2018) (units unknown) (unknown) (unknown) (no date) (unknown) (unknown) Auscultation: clear to auscultation bilaterally (units unknown) (unknown) (unknown) (no date) (unknown) (unknown) BUN (7-17) mg/dL (units unknown) (unknown) (unknown) (no date) (unknown) (unknown) BUN 12 (7-17) mg/dL (units unknown) (unknown) (unknown) (no date) (unknown) (unknown) BUN/Creatinine Ratio (6-22) (units unknown) (unknown) (unknown) (no date) (unknown) (unknown) BUN/Creatinine Ratio 17.4 (6-22) (units unknown) (unknown) (unknown) (no date) (unknown) (unknown) Baso # (Auto) (0-100 ) /uL (units unknown) (unknown) (unknown) (no date) (unknown) (unknown) Baso # (Auto) 0 (0-100) /uL (units unknown) (unknown) (unknown) (no date) (unknown) (unknown) Baso % (Auto) (0-2) % (units unknown) (unknown) (unknown) (no date) (unknown) (unknown) Baso % (Auto) 1.0 (0-2) % (units unknown) (unknown) (unknown) (no date) (unknown) (unknown) Bedside Urine Bilirubin + 1 (units unknown) (unknown) (unknown) (no date) (unknown) (unknown) Bedside Urine Glucos e Negative (units unknown) (unknown) (unknown) (no date) (unknown) (unknown) Bedside Urine Ketone + 15 (units unknown) (unknown) (unknown) (no date) (unknown) (unknown) Bedside Urine Leukocytes - Negative (units unknown) (unknown) (unknown) (no date) (unknown) (unknown) Bedside Urine Nitrit e - Negative (units unknown) (unknown) (unknown) (no date) (unknown) (unknown) Bedside Urine Occult Blood - Negative (units unknown) (unknown) (unknown) (no date) (unknown) (unknown) Bedside Urine Protei n + 30 (units unknown) (unknown) (unknown) (no date) (unknown) (unknown) Bedside Urine Urobilinogen - Negative (units unknown) (unknown) (unknown) (no date) (unknown) (unknown) Bedside Urine pH 6.0 (units unknown) (unknown) (unknown) (no date) (unknown) (unknown) Blood Pressure 137/8 4 03/21/23 12:30 (units unknown) (unknown) (unknown) (no date) (unknown) (unknown) Blood Pressure 137/84 (units unknown) (unknown) (unknown) (no date) (unknown) (unknown) Calcium (8.4-10.2) mg/dL (units unknown) (unknown) (unknown) (no date) (unknown) (unknown) Calcium 8.7 (8.4-10.2) mg/dL (units unknown) (unknown) (unknown) (no date) (unknown) (unknown) Carbon Dioxide (22-32) mmol/L (units unknown) (unknown) (unknown) (no date) (unknown) (unknown) Carbon Dioxide 24 (22-32) mmol/L (units unknown) (unknown) (unknown) (no date) (unknown) (unknown) Cardio (units unknown) (unknown) (unknown) (no date) (unknown) (unknown) Chief complaint: Toxicology Problem (units unknown) (unknown) (unknown) (no date) (unknown) (unknown) Chloride (98-107) mmol/L (units unknown) (unknown) (unknown) (no date) (unknown) (unknown) Chloride 105 (98-107 ) mmol/L (units unknown) (unknown) (unknown) (no date) (unknown) (unknown) Complete Blood Count AUTO DIFF Stat (units unknown) (unknown) (unknown) (no date) (unknown) (unknown) Comprehensive Metabolic Panel Stat (units unknown) (unknown) (unknown) (no date) (unknown) (unknown) Const (units unknown) (unknown) (unknown) (no date) (unknown) (unknown) Course (units unknown) (unknown) (unknown) (no date) (unknown) (unknown) Creatinine (0.52-1.04) mg/dL (units unknown) (unknown) (unknown) (no date) (unknown) (unknown) Creatinine 0.69 (0.52-1.04) mg/dL (units unknown) (unknown) (unknown) (no date) (unknown) (unknown) : 1990 Acct:[id number] (units unknown) (unknown) (unknown) (no date) (unknown) (unknown) Date of Service: 07/31/22 (units unknown) (unknown) (unknown) (no date) (unknown) (unknown) Departure (units unknown) (unknown) (unknown) (no date) (unknown) (unknown) Discharge Plan (units unknown) (unknown) (unknown) (no date) (unknown) (unknown) Discontinued Medications (units unknown) (unknown) (unknown) (no date) (unknown) (unknown) Documented By: KB (units unknown) (unknown) (unknown) (no date) (unknown) (unknown) ED Orders (units unknown) (unknown) (unknown) (no date) (unknown) (unknown) ER Physician: Will Benitez D.O. (units unknown) (unknown) (unknown) (no date) (unknown) (unknown) Effort + Inspection: normal respiratory effort (units unknown) (unknown) (unknown) (no date) (unknown) (unknown) Emergency Report (units unknown) (unknown) (unknown) (no date) (unknown) (unknown) Eos # (Auto) (0-450) /uL (units unknown) (unknown) (unknown) (no date) (unknown) (unknown) Eos # (Auto) 100 (0-450) /uL (units unknown) (unknown) (unknown) (no date) (unknown) (unknown) Eos % (Auto) (2-4) % (units unknown) (unknown) (unknown) (no date) (unknown) (unknown) Eos % (Auto) 3.3 (2-4) % (units unknown) (unknown) (unknown) (no date) (unknown) (unknown) Esterase (units unknown) (unknown) (unknown) (no date) (unknown) (unknown) Estimated GFR > 60 (>60) mL/min (units unknown) (unknown) (unknown) (no date) (unknown) (unknown) Estimated GFR (>60) mL/min (units unknown) (unknown) (unknown) (no date) (unknown) (unknown) Ethanol (ETOH) Stat (units unknown) (unknown) (unknown) (no date) (unknown) (unknown) Ethyl Alcohol < 10 ( - 10) mg/dL (units unknown) (unknown) (unknown) (no date) (unknown) (unknown) Ethyl Alcohol ( - 10 ) mg/dL (units unknown) (unknown) (unknown) (no date) (unknown) (unknown) Exam (units unknown) (unknown) (unknown) (no date) (unknown) (unknown) Extrem (units unknown) (unknown) (unknown) (no date) (unknown) (unknown) Family History (units unknown) (unknown) (unknown) (no date) (unknown) (unknown) Family/Other Alcoholism (units unknown) (unknown) (unknown) (no date) (unknown) (unknown) Family/Other Diabete s mellitus (units unknown) (unknown) (unknown) (no date) (unknown) (unknown) Father Alcoholism (units unknown) (unknown) (unknown) (no date) (unknown) (unknown) Tonia Schneider MD [Primary Care Provider] (units unknown) (unknown) (unknown) (no date) (unknown) (unknown) General (units unknown) (unknown) (unknown) (no date) (unknown) (unknown) General: cooperative (units unknown) (unknown) (unknown) (no date) (unknown) (unknown) General: no rashes o r lesions noted (units unknown) (unknown) (unknown) (no date) (unknown) (unknown) General: normal to inspection (units unknown) (unknown) (unknown) (no date) (unknown) (unknown) Globulin (1.7-4.1) g/dL (units unknown) (unknown) (unknown) (no date) (unknown) (unknown) Globulin 2.8 (1.7-4.1) g/dL (units unknown) (unknown) (unknown) (no date) (unknown) (unknown) Glucose (70-100) mg/dL (units unknown) (unknown) (unknown) (no date) (unknown) (unknown) Glucose 102 H (70-100) mg/dL (units unknown) (unknown) (unknown) (no date) (unknown) (unknown) Grandfather Smoker (units unknown) (unknown) (unknown) (no date) (unknown) (unknown) Grandfather Unknown whether patient has any health problems (units unknown) (unknown) (unknown) (no date) (unknown) (unknown) Grandmother Diabetes mellitus (units unknown) (unknown) (unknown) (no date) (unknown) (unknown) Grandmother Hypoglycemia (units unknown) (unknown) (unknown) (no date) (unknown) (unknown) H/O dilation and curettage (-12/14/16) (units unknown) (unknown) (unknown) (no date) (unknown) (unknown) H/O wisdom tooth extraction (-2013) (units unknown) (unknown) (unknown) (no date) (unknown) (unknown) HENMT (units unknown) (unknown) (unknown) (no date) (unknown) (unknown) HPI - General Adult (units unknown) (unknown) (unknown) (no date) (unknown) (unknown) HPI narrative: (units unknown) (unknown) (unknown) (no date) (unknown) (unknown) Hct (36-46) % (units unknown) (unknown) (unknown) (no date) (unknown) (unknown) Hct 32.3 L (36-46) % (units unknown) (unknown) (unknown) (no date) (unknown) (unknown) Head: normal to inspection and normocephalic (units unknown) (unknown) (unknown) (no date) (unknown) (unknown) Hgb (12.0-16.0) g/dL (units unknown) (unknown) (unknown) (no date) (unknown) (unknown) Hgb 10.6 L (12.0-16.0) g/dL (units unknown) (unknown) (unknown) (no date) (unknown) (unknown) History of Present Illness (units unknown) (unknown) (unknown) (no date) (unknown) (unknown) Home Medications (units unknown) (unknown) (unknown) (no date) (unknown) (unknown) Ictotest Urine Stat (units unknown) (unknown) (unknown) (no date) (unknown) (unknown) Initial Vital Signs (units unknown) (unknown) (unknown) (no date) (unknown) (unknown) Initial Vital Signs: (units unknown) (unknown) (unknown) (no date) (unknown) (unknown) Insomnia (units unknown) (unknown) (unknown) (no date) (unknown) (unknown) Is anxious appearing (units unknown) (unknown) (unknown) (no date) (unknown) (unknown) [address] [id number] (units unknown) (unknown) (unknown) (no date) (unknown) (unknown) Lab Data (units unknown) (unknown) (unknown) (no date) (unknown) (unknown) Lab Results (units unknown) (unknown) (unknown) (no date) (unknown) (unknown) Labs: (units unknown) (unknown) (unknown) (no date) (unknown) (unknown) Last Admin: 07/31/22 12:59 Dose: 1 mg (units unknown) (unknown) (unknown) (no date) (unknown) (unknown) Last Admin: 07/31/22 12:59 Dose: 260 mg (units unknown) (unknown) (unknown) (no date) (unknown) (unknown) Last Admin: 07/31/22 13:00 Dose: 1 tab (units unknown) (unknown) (unknown) (no date) (unknown) (unknown) Last Infusion: 07/31/22 13:23 Dose: 0 mls/hr (units unknown) (unknown) (unknown) (no date) (unknown) (unknown) Lipase (23-300) U/L (units unknown) (unknown) (unknown) (no date) (unknown) (unknown) Lipase 366 H (23-300 ) U/L (units unknown) (unknown) (unknown) (no date) (unknown) (unknown) Lipase Stat (units unknown) (unknown) (unknown) (no date) (unknown) (unknown) Lorazepam (Lorazepam 2 Mg/Ml Inj) 1 mg IV NOW ONE (units unknown) (unknown) (unknown) (no date) (unknown) (unknown) Lymph # (Auto) (5939-8828) /uL (units unknown) (unknown) (unknown) (no date) (unknown) (unknown) Lymph # (Auto) 1200 (0098-6564) /uL (units unknown) (unknown) (unknown) (no date) (unknown) (unknown) Lymph % (Auto) (25-40) % (units unknown) (unknown) (unknown) (no date) (unknown) (unknown) Lymph % (Auto) 27.8 (25-40) % (units unknown) (unknown) (unknown) (no date) (unknown) (unknown) MCH (26-34) PG (units unknown) (unknown) (unknown) (no date) (unknown) (unknown) MCH 26.4 (26-34) PG (units unknown) (unknown) (unknown) (no date) (unknown) (unknown) MCHC (30-36) % (units unknown) (unknown) (unknown) (no date) (unknown) (unknown) MCHC 32.8 (30-36) % (units unknown) (unknown) (unknown) (no date) (unknown) (unknown) MCV (80-100) fL (units unknown) (unknown) (unknown) (no date) (unknown) (unknown) MCV 80.4 (80-100) fL (units unknown) (unknown) (unknown) (no date) (unknown) (unknown) Medical Decision Making (units unknown) (unknown) (unknown) (no date) (unknown) (unknown) Medical History (units unknown) (unknown) (unknown) (no date) (unknown) (unknown) Medication Instructions Recorded Confirmed (units unknown) (unknown) (unknown) (no date) (unknown) (unknown) Medication Instructions Recorded (units unknown) (unknown) (unknown) (no date) (unknown) (unknown) Menometrorrhagia (units unknown) (unknown) (unknown) (no date) (unknown) (unknown) Mode of arrival: Ambulatory (units unknown) (unknown) (unknown) (no date) (unknown) (unknown) [place] # (Auto) (0-900 ) /uL (units unknown) (unknown) (unknown) (no date) (unknown) (unknown) [place] # (Auto) 300 (0-900) /uL (units unknown) (unknown) (unknown) (no date) (unknown) (unknown) [place] % (Auto) (3-14) % (units unknown) (unknown) (unknown) (no date) (unknown) (unknown) [place] % (Auto) 7.9 (3-14) % (units unknown) (unknown) (unknown) (no date) (unknown) (unknown) Mother Diabetes mellitus (units unknown) (unknown) (unknown) (no date) (unknown) (unknown) Multivitamins (Multivitamin 1 Tablet) 1 tab PO DAILY SANDY (units unknown) (unknown) (unknown) (no date) (unknown) (unknown) Neuro (units unknown) (unknown) (unknown) (no date) (unknown) (unknown) Neut # (Auto) (8368-0724) /uL (units unknown) (unknown) (unknown) (no date) (unknown) (unknown) Neut # (Auto) 2600 (4913-3726) /uL (units unknown) (unknown) (unknown) (no date) (unknown) (unknown) Neut % (Auto) (50-75 ) % (units unknown) (unknown) (unknown) (no date) (unknown) (unknown) Neut % (Auto) 60.0 (50-75) % (units unknown) (unknown) (unknown) (no date) (unknown) (unknown) No Action (units unknown) (unknown) (unknown) (no date) (unknown) (unknown) Obesity (units unknown) (unknown) (unknown) (no date) (unknown) (unknown) Ordered: (units unknown) (unknown) (unknown) (no date) (unknown) (unknown) Orders (units unknown) (unknown) (unknown) (no date) (unknown) (unknown) Other: (units unknown) (unknown) (unknown) (no date) (unknown) (unknown) Overweight (units unknown) (unknown) (unknown) (no date) (unknown) (unknown) Oxygen Delivery Method Room Air 07/31/22 12:30 (units unknown) (unknown) (unknown) (no date) (unknown) (unknown) Oxygen Delivery Method Room Air (units unknown) (unknown) (unknown) (no date) (unknown) (unknown) Patient History (units unknown) (unknown) (unknown) (no date) (unknown) (unknown) Patient is a 31-year-old female. Has a history of alcohol use disorder. Has (units unknown) (unknown) (unknown) (no date) (unknown) (unknown) Patient is alert oriented. Has tremors. No seizure activity. Moves all 4 (units unknown) (unknown) (unknown) (no date) (unknown) (unknown) Patient: Sarah Connors MR#: M (units unknown) (unknown) (unknown) (no date) (unknown) (unknown) Phenobarbital (Phenobarbital 65 Mg/Ml Vial) 260 mg IV NOW ONE (units unknown) (unknown) (unknown) (no date) (unknown) (unknown) Plt Count (150-400) X103/uL (units unknown) (unknown) (unknown) (no date) (unknown) (unknown) Plt Count 229 (150-400) X103/uL (units unknown) (unknown) (unknown) (no date) (unknown) (unknown) Point of Care Testing (units unknown) (unknown) (unknown) (no date) (unknown) (unknown) Point of care testing: (units unknown) (unknown) (unknown) (no date) (unknown) (unknown) Potassium (3.4-5.1) mmol/L (units unknown) (unknown) (unknown) (no date) (unknown) (unknown) Potassium 3.8 (3.4-5.1) mmol/L (units unknown) (unknown) (unknown) (no date) (unknown) (unknown) Test Results Negative (units unknown) (unknown) (unknown) (no date) (unknown) (unknown) Test Serum,Qual Stat (units unknown) (unknown) (unknown) (no date) (unknown) (unknown) Prescriptions: (units unknown) (unknown) (unknown) (no date) (unknown) (unknown) Previous Rx's (units unknown) (unknown) (unknown) (no date) (unknown) (unknown) Psych (units unknown) (unknown) (unknown) (no date) (unknown) (unknown) Pulse Oximetry 100 07/31/22 12:30 (units unknown) (unknown) (unknown) (no date) (unknown) (unknown) Pulse Oximetry 100 (units unknown) (unknown) (unknown) (no date) (unknown) (unknown) Pulse Rate 68 07/31/22 12:30 (units unknown) (unknown) (unknown) (no date) (unknown) (unknown) Pulse Rate 68 (units unknown) (unknown) (unknown) (no date) (unknown) (unknown) RBC (4.0-5.2) X106/uL (units unknown) (unknown) (unknown) (no date) (unknown) (unknown) RBC 4.02 (4.0-5.2) X106/uL (units unknown) (unknown) (unknown) (no date) (unknown) (unknown) RDW (11.6-14.8) % (units unknown) (unknown) (unknown) (no date) (unknown) (unknown) RDW 19.5 H (11.6-14.8) % (units unknown) (unknown) (unknown) (no date) (unknown) (unknown) ROS Unobtainable: Al l systems reviewed + are unremarkable except as noted in HPI (units unknown) (unknown) (unknown) (no date) (unknown) (unknown) Rate: regular rate (units unknown) (unknown) (unknown) (no date) (unknown) (unknown) Referrals: (units unknown) (unknown) (unknown) (no date) (unknown) (unknown) Related Data (units unknown) (unknown) (unknown) (no date) (unknown) (unknown) Resp (units unknown) (unknown) (unknown) (no date) (unknown) (unknown) Respiratory Rate 17 07/31/22 12:30 (units unknown) (unknown) (unknown) (no date) (unknown) (unknown) Respiratory Rate 17 (units unknown) (unknown) (unknown) (no date) (unknown) (unknown) Review of Systems (units unknown) (unknown) (unknown) (no date) (unknown) (unknown) Rhythm: regular rhythm (units unknown) (unknown) (unknown) (no date) (unknown) (unknown) S/P myringotomy with insertion of tube (units unknown) (unknown) (unknown) (no date) (unknown) (unknown) (spontaneous vaginal delivery) (-09/05/18) (units unknown) (unknown) (unknown) (no date) (unknown) (unknown) Serum , Kiko l (Negative) (units unknown) (unknown) (unknown) (no date) (unknown) (unknown) Serum , Kiko l Negative (Negative) (units unknown) (unknown) (unknown) (no date) (unknown) (unknown) Signed By: (units unknown) (unknown) (unknown) (no date) (unknown) (unknown) Skin (units unknown) (unknown) (unknown) (no date) (unknown) (unknown) Smoker (units unknown) (unknown) (unknown) (no date) (unknown) (unknown) Smoking Status: Former smoker (units unknown) (unknown) (unknown) (no date) (unknown) (unknown) Social History (units unknown) (unknown) (unknown) (no date) (unknown) (unknown) Sodium (137-145) mmol/L (units unknown) (unknown) (unknown) (no date) (unknown) (unknown) Sodium 137 (137-145) mmol/L (units unknown) (unknown) (unknown) (no date) (unknown) (unknown) Source: patient (units unknown) (unknown) (unknown) (no date) (unknown) (unknown) Stated complaint: SOB, tremors (units unknown) (unknown) (unknown) (no date) (unknown) (unknown) Stop: 07/31/22 12:36 (units unknown) (unknown) (unknown) (no date) (unknown) (unknown) Substance Use Type: does not use (units unknown) (unknown) (unknown) (no date) (unknown) (unknown) Surgical History (units unknown) (unknown) (unknown) (no date) (unknown) (unknown) Temperature 97.7 F 07/31/22 12:30 (units unknown) (unknown) (unknown) (no date) (unknown) (unknown) Temperature 97.7 F (units unknown) (unknown) (unknown) (no date) (unknown) (unknown) Thiamine HCl 200 mg/ Sodium (Chloride) 102 mls @ 408 mls/hr IV DAILY SANDY (units unknown) (unknown) (unknown) (no date) (unknown) (unknown) Time Seen by Provider: 07/31/22 12:35 (units unknown) (unknown) (unknown) (no date) (unknown) (unknown) Total Bilirubin (0.2-1.3) mg/dL (units unknown) (unknown) (unknown) (no date) (unknown) (unknown) Total Bilirubin 0.8 (0.2-1.3) mg/dL (units unknown) (unknown) (unknown) (no date) (unknown) (unknown) Total Protein (6.3-8.2) g/dL (units unknown) (unknown) (unknown) (no date) (unknown) (unknown) Total Protein 7.2 (6.3-8.2) g/dL (units unknown) (unknown) (unknown) (no date) (unknown) (unknown) U Benzodiazepines Scrn (Negative) (units unknown) (unknown) (unknown) (no date) (unknown) (unknown) U Benzodiazepines Scrn Positive H (Negative) (units unknown) (unknown) (unknown) (no date) (unknown) (unknown) U Marijuana (THC) Screen (Negative) (units unknown) (unknown) (unknown) (no date) (unknown) (unknown) U Marijuana (THC) Screen Negative (Negative) (units unknown) (unknown) (unknown) (no date) (unknown) (unknown) U Methamphetamines Scrn (Negative) (units unknown) (unknown) (unknown) (no date) (unknown) (unknown) U Methamphetamines Scrn Negative (Negative) (units unknown) (unknown) (unknown) (no date) (unknown) (unknown) U Opiates 300ng/mL cut (Negative) (units unknown) (unknown) (unknown) (no date) (unknown) (unknown) U Opiates 300ng/mL cut Negative (Negative) (units unknown) (unknown) (unknown) (no date) (unknown) (unknown) U Tricyclic Antidepress (Negative) (units unknown) (unknown) (unknown) (no date) (unknown) (unknown) U Tricyclic Antidepress Positive H (Negative) (units unknown) (unknown) (unknown) (no date) (unknown) (unknown) Ur Amphetamines Screen (Negative) (units unknown) (unknown) (unknown) (no date) (unknown) (unknown) Ur Amphetamines Screen Negative (Negative) (units unknown) (unknown) (unknown) (no date) (unknown) (unknown) Ur Barbiturates Screen (Negative) (units unknown) (unknown) (unknown) (no date) (unknown) (unknown) Ur Barbiturates Screen Positive H (Negative) (units unknown) (unknown) (unknown) (no date) (unknown) (unknown) Ur Bilirubin Confirm (Negative) (units unknown) (unknown) (unknown) (no date) (unknown) (unknown) Ur Bilirubin Confirm Negative (Negative) (units unknown) (unknown) (unknown) (no date) (unknown) (unknown) Ur Culture Indicated ? Cult not indicated (units unknown) (unknown) (unknown) (no date) (unknown) (unknown) Ur Culture Indicated? (units unknown) (unknown) (unknown) (no date) (unknown) (unknown) Ur Leukocyte Esteras e (NEGATIVE) (units unknown) (unknown) (unknown) (no date) (unknown) (unknown) Ur Leukocyte Esteras e Negative (NEGATIVE) (units unknown) (unknown) (unknown) (no date) (unknown) (unknown) Ur MDMA Scrn (Ecstasy) (Negative) (units unknown) (unknown) (unknown) (no date) (unknown) (unknown) Ur MDMA Scrn (Ecstasy) Negative (Negative) (units unknown) (unknown) (unknown) (no date) (unknown) (unknown) Ur Oxycodone Screen (Negative) (units unknown) (unknown) (unknown) (no date) (unknown) (unknown) Ur Oxycodone Screen Negative (Negative) (units unknown) (unknown) (unknown) (no date) (unknown) (unknown) Ur Phencyclidine Scr n (Negative) (units unknown) (unknown) (unknown) (no date) (unknown) (unknown) Ur Phencyclidine Scr n Negative (Negative) (units unknown) (unknown) (unknown) (no date) (unknown) (unknown) Ur Specific [place] >=1.030 H (1.000-1.035) (units unknown) (unknown) (unknown) (no date) (unknown) (unknown) Ur Specific [place] (1.000-1.035) (units unknown) (unknown) (unknown) (no date) (unknown) (unknown) Ur Squamous Epith Cells (0-5/HPF) (units unknown) (unknown) (unknown) (no date) (unknown) (unknown) Ur Squamous Epith Cells 5-10 /hpf H (0-5/HPF) (units unknown) (unknown) (unknown) (no date) (unknown) (unknown) Urinalysis and Microscopic Stat (units unknown) (unknown) (unknown) (no date) (unknown) (unknown) Urine Appearance Sl cloudy (units unknown) (unknown) (unknown) (no date) (unknown) (unknown) Urine Appearance (units unknown) (unknown) (unknown) (no date) (unknown) (unknown) Urine Bacteria (None) (units unknown) (unknown) (unknown) (no date) (unknown) (unknown) Urine Bacteria None seen (None) (units unknown) (unknown) (unknown) (no date) (unknown) (unknown) Urine Bilirubin (NEGATIVE) (units unknown) (unknown) (unknown) (no date) (unknown) (unknown) Urine Bilirubin 1+ H D (NEGATIVE) (units unknown) (unknown) (unknown) (no date) (unknown) (unknown) Urine Cocaine Screen (Negative) (units unknown) (unknown) (unknown) (no date) (unknown) (unknown) Urine Cocaine Screen Negative (Negative) (units unknown) (unknown) (unknown) (no date) (unknown) (unknown) Urine Color Yellow (units unknown) (unknown) (unknown) (no date) (unknown) (unknown) Urine Color (units unknown) (unknown) (unknown) (no date) (unknown) (unknown) Urine Dip (units unknown) (unknown) (unknown) (no date) (unknown) (unknown) Urine Drug Screen, Rapid Stat (units unknown) (unknown) (unknown) (no date) (unknown) (unknown) Urine Glucose (UA) (Negative) g/dL (units unknown) (unknown) (unknown) (no date) (unknown) (unknown) Urine Glucose (UA) Negative (Negative) g/dL (units unknown) (unknown) (unknown) (no date) (unknown) (unknown) Urine Ketones (NEGATIVE) (units unknown) (unknown) (unknown) (no date) (unknown) (unknown) Urine Ketones 1+ H (NEGATIVE) (units unknown) (unknown) (unknown) (no date) (unknown) (unknown) Urine Methadone Screen (Negative) (units unknown) (unknown) (unknown) (no date) (unknown) (unknown) Urine Methadone Screen Negative (Negative) (units unknown) (unknown) (unknown) (no date) (unknown) (unknown) Urine Nitrate (Negative) (units unknown) (unknown) (unknown) (no date) (unknown) (unknown) Urine Nitrate Negative (Negative) (units unknown) (unknown) (unknown) (no date) (unknown) (unknown) Urine Occult Blood (Negative) (units unknown) (unknown) (unknown) (no date) (unknown) (unknown) Urine Occult Blood Negative (Negative) (units unknown) (unknown) (unknown) (no date) (unknown) (unknown) Urine Protein (Negative) (units unknown) (unknown) (unknown) (no date) (unknown) (unknown) Urine Protein Trace H (Negative) (units unknown) (unknown) (unknown) (no date) (unknown) (unknown) Urine RBC (0-5/HPF) (units unknown) (unknown) (unknown) (no date) (unknown) (unknown) Urine RBC None seen (0-5/HPF) (units unknown) (unknown) (unknown) (no date) (unknown) (unknown) Urine Specific [place] 1.030 (units unknown) (unknown) (unknown) (no date) (unknown) (unknown) Urine Urobilinogen (0.2) E.U./dL (units unknown) (unknown) (unknown) (no date) (unknown) (unknown) Urine Urobilinogen 0.2 (0.2) E.U./dL (units unknown) (unknown) (unknown) (no date) (unknown) (unknown) Urine WBC (0-5/HPF) (units unknown) (unknown) (unknown) (no date) (unknown) (unknown) Urine WBC None seen (0-5/HPF) (units unknown) (unknown) (unknown) (no date) (unknown) (unknown) Urine pH (4.5-8.0) (units unknown) (unknown) (unknown) (no date) (unknown) (unknown) Urine pH 6.0 (4.5-8.0) (units unknown) (unknown) (unknown) (no date) (unknown) (unknown) Vital Signs - 8 hr (units unknown) (unknown) (unknown) (no date) (unknown) (unknown) Vital Signs (units unknown) (unknown) (unknown) (no date) (unknown) (unknown) Vital signs: (units unknown) (unknown) (unknown) (no date) (unknown) (unknown) WBC (4.5-11.0) X103/uL (units unknown) (unknown) (unknown) (no date) (unknown) (unknown) WBC 4.4 L (4.5-11.0) X103/uL (units unknown) (unknown) (unknown) (no date) (unknown) (unknown) [Embedded Image Not Available] (units unknown) (unknown) (unknown) (no date) (unknown) (unknown) [METOCLOPRAMIDE] (units unknown) (unknown) (unknown) (no date) (unknown) (unknown) alcohol intake frequency: 3 or more drinks per day (units unknown) (unknown) (unknown) (no date) (unknown) (unknown) alcohol intake: former (units unknown) (unknown) (unknown) (no date) (unknown) (unknown) and below (units unknown) (unknown) (unknown) (no date) (unknown) (unknown) current occupational exposures/hazards: Yes (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 with Pandemic ) (units unknown) (unknown) (unknown) (no date) (unknown) (unknown) department for alcohol withdrawal. She states that after she was discharged she (units unknown) (unknown) (unknown) (no date) (unknown) (unknown) drink was on Saturday. She states that since she is stopped drinking she has had (units unknown) (unknown) (unknown) (no date) (unknown) (unknown) education level: college (units unknown) (unknown) (unknown) (no date) (unknown) (unknown) extremities. Is ambulatory. 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[employer] (units unknown) (unknown) (unknown) (no date) (unknown) (unknown) fluoxetine 10 mg capsule 10 mg PO DAILY 07/13/22 07/13/22 (units unknown) (unknown) (unknown) (no date) (unknown) (unknown) fluoxetine 10 mg capsule (units unknown) (unknown) (unknown) (no date) (unknown) (unknown) household members: children (units unknown) (unknown) (unknown) (no date) (unknown) (unknown) hydrocodone [HYDROCODONE] AdvReac Unknown VOMITING Verified 07/12/22 16:18 (units unknown) (unknown) (unknown) (no date) (unknown) (unknown) hydroxyzine HCl 50 m g tablet 50 mg PO DAILY 07/13/22 07/13/22 (units unknown) (unknown) (unknown) (no date) (unknown) (unknown) hydroxyzine HCl 50 m g tablet (units unknown) (unknown) (unknown) (no date) (unknown) (unknown) marital status: (units unknown) (unknown) (unknown) (no date) (unknown) (unknown) mcg tablet (Tab-A-Kael) (units unknown) (unknown) (unknown) (no date) (unknown) (unknown) metoclopramide Allergy Mild RASH/HIVES Verified 07/12/22 16:18 (units unknown) (unknown) (unknown) (no date) (unknown) (unknown) mg tablet (units unknown) (unknown) (unknown) (no date) (unknown) (unknown) multivitamin with folic acid 400 1 tab PO DAILY #30 tabs 07/14/22 (units unknown) (unknown) (unknown) (no date) (unknown) (unknown) multivitamin with folic acid [Tab-A-Kael] 400 mcg Tablet (units unknown) (unknown) (unknown) (no date) (unknown) (unknown) number of children: 1 (units unknown) (unknown) (unknown) (no date) (unknown) (unknown) occupational status: employed (units unknown) (unknown) (unknown) (no date) (unknown) (unknown) pantoprazole 40 mg Tablet,Delayed Release (Dr/Ec) (units unknown) (unknown) (unknown) (no date) (unknown) (unknown) pantoprazole 40 mg tablet,delayed 40 mg PO 0700 #30 tabs 07/14/22 (units unknown) (unknown) (unknown) (no date) (unknown) (unknown) past. At the beginning of the month and an extended stay here in the emergency (units unknown) (unknown) (unknown) (no date) (unknown) (unknown) quetiapine 300 mg tablet 300 mg PO DAILY 07/13/22 07/13/22 (units unknown) (unknown) (unknown) (no date) (unknown) (unknown) quetiapine 300 mg tablet (units unknown) (unknown) (unknown) (no date) (unknown) (unknown) release (units unknown) (unknown) (unknown) (no date) (unknown) (unknown) second hand exposure : No (growing up as a child - not currently) (units unknown) (unknown) (unknown) (no date) (unknown) (unknown) shaking and nausea and shortness of breath and tremors and generally not feeling (units unknown) (unknown) (unknown) (no date) (unknown) (unknown) special renee needs: No (units unknown) (unknown) (unknown) (no date) (unknown) (unknown) substance use type: does not use (units unknown) (unknown) (unknown) (no date) (unknown) (unknown) thiamine mononitrate (vit B1) 100 100 mg PO DAILY #30 tabs 07/14/22 (units unknown) (unknown) (unknown) (no date) (unknown) (unknown) thiamine mononitrate (vit B1) 100 mg Tablet (units unknown) (unknown) (unknown) (no date) (unknown) (unknown) very well. No seizure-like activity. She denies any other ingestions. (units unknown) (unknown) (unknown) (no date) (unknown) (unknown) went back to drinkin g and went on a ?[place] ?this was a couple days. Her last (units unknown) (unknown) (unknown) (no date) (unknown) (unknown) withdrawn from alcohol in the past. She states she is had a seizure in the (units unknown) (unknown) Result panel [id number] (unknown) (no date) (unknown) (unknown) (no value) (units unknown) (unknown) (unknown) (no date) (unknown) (unknown) [id number] (units unknown) (unknown) (unknown) (no date) (unknown) (unknown) 07/31/22 07/31/22 07/31/22 Range/Units (units unknown) (unknown) (unknown) (no date) (unknown) (unknown) 07/31/22 12:40 (units unknown) (unknown) (unknown) (no date) (unknown) (unknown) 07/31/22 13:41 (units unknown) (unknown) (unknown) (no date) (unknown) (unknown) 07/31/22 Range/Units (units unknown) (unknown) (unknown) (no date) (unknown) (unknown) 07/31/22 (units unknown) (unknown) (unknown) (no date) (unknown) (unknown) 1 tab PO DAILY Qty: 30 0RF (units unknown) (unknown) (unknown) (no date) (unknown) (unknown) 10 mg PO DAILY (units unknown) (unknown) (unknown) (no date) (unknown) (unknown) 100 mg PO DAILY Qty: 30 0RF (units unknown) (unknown) (unknown) (no date) (unknown) (unknown) 12:30 07/31/22 (units unknown) (unknown) (unknown) (no date) (unknown) (unknown) 12:40 12:40 12:40 (units unknown) (unknown) (unknown) (no date) (unknown) (unknown) 12:40 13:41 13:41 (units unknown) (unknown) (unknown) (no date) (unknown) (unknown) 12:44 07/31/22 (units unknown) (unknown) (unknown) (no date) (unknown) (unknown) 12:46 07/31/22 (units unknown) (unknown) (unknown) (no date) (unknown) (unknown) 12:46 (units unknown) (unknown) (unknown) (no date) (unknown) (unknown) 13:00 07/31/22 (units unknown) (unknown) (unknown) (no date) (unknown) (unknown) 13:00 (units unknown) (unknown) (unknown) (no date) (unknown) (unknown) 13:08 07/31/22 (units unknown) (unknown) (unknown) (no date) (unknown) (unknown) 13:13 07/31/22 (units unknown) (unknown) (unknown) (no date) (unknown) (unknown) 13:13 (units unknown) (unknown) (unknown) (no date) (unknown) (unknown) 13:16 07/31/22 (units unknown) (unknown) (unknown) (no date) (unknown) (unknown) 13:16 (units unknown) (unknown) (unknown) (no date) (unknown) (unknown) 13:20 07/31/22 (units unknown) (unknown) (unknown) (no date) (unknown) (unknown) 13:26 07/31/22 (units unknown) (unknown) (unknown) (no date) (unknown) (unknown) 13:26 (units unknown) (unknown) (unknown) (no date) (unknown) (unknown) 13:30 07/31/22 (units unknown) (unknown) (unknown) (no date) (unknown) (unknown) 13:41 (units unknown) (unknown) (unknown) (no date) (unknown) (unknown) 14:00 (units unknown) (unknown) (unknown) (no date) (unknown) (unknown) 14:30 07/31/22 (units unknown) (unknown) (unknown) (no date) (unknown) (unknown) 15:00 07/31/22 (units unknown) (unknown) (unknown) (no date) (unknown) (unknown) 15:01 07/31/22 (units unknown) (unknown) (unknown) (no date) (unknown) (unknown) 15:01 (units unknown) (unknown) (unknown) (no date) (unknown) (unknown) 15:06 07/31/22 (units unknown) (unknown) (unknown) (no date) (unknown) (unknown) 15:06 (units unknown) (unknown) (unknown) (no date) (unknown) (unknown) 15:11 07/31/22 (units unknown) (unknown) (unknown) (no date) (unknown) (unknown) 15:16 07/31/22 (units unknown) (unknown) (unknown) (no date) (unknown) (unknown) 15:16 (units unknown) (unknown) (unknown) (no date) (unknown) (unknown) 15:20 07/31/22 (units unknown) (unknown) (unknown) (no date) (unknown) (unknown) 15:20 (units unknown) (unknown) (unknown) (no date) (unknown) (unknown) 15:30 07/31/22 (units unknown) (unknown) (unknown) (no date) (unknown) (unknown) 15:35 07/31/22 (units unknown) (unknown) (unknown) (no date) (unknown) (unknown) 15:35 (units unknown) (unknown) (unknown) (no date) (unknown) (unknown) 15:45 07/31/22 (units unknown) (unknown) (unknown) (no date) (unknown) (unknown) 16:00 07/31/22 (units unknown) (unknown) (unknown) (no date) (unknown) (unknown) 16:00 (units unknown) (unknown) (unknown) (no date) (unknown) (unknown) 16:05 07/31/22 (units unknown) (unknown) (unknown) (no date) (unknown) (unknown) 16:05 (units unknown) (unknown) (unknown) (no date) (unknown) (unknown) 16:10 07/31/22 (units unknown) (unknown) (unknown) (no date) (unknown) (unknown) 16:15 07/31/22 (units unknown) (unknown) (unknown) (no date) (unknown) (unknown) 16:15 (units unknown) (unknown) (unknown) (no date) (unknown) (unknown) 16:21 07/31/22 (units unknown) (unknown) (unknown) (no date) (unknown) (unknown) 16:21 (units unknown) (unknown) (unknown) (no date) (unknown) (unknown) 16:26 07/31/22 (units unknown) (unknown) (unknown) (no date) (unknown) (unknown) 16:30 (units unknown) (unknown) (unknown) (no date) (unknown) (unknown) 16:31 07/31/22 (units unknown) (unknown) (unknown) (no date) (unknown) (unknown) 16:35 07/31/22 (units unknown) (unknown) (unknown) (no date) (unknown) (unknown) 16:35 (units unknown) (unknown) (unknown) (no date) (unknown) (unknown) 16:46 07/31/22 (units unknown) (unknown) (unknown) (no date) (unknown) (unknown) 16:46 (units unknown) (unknown) (unknown) (no date) (unknown) (unknown) 16:51 07/31/22 (units unknown) (unknown) (unknown) (no date) (unknown) (unknown) 17:00 (units unknown) (unknown) (unknown) (no date) (unknown) (unknown) 17:11 07/31/22 (units unknown) (unknown) (unknown) (no date) (unknown) (unknown) 17:11 (units unknown) (unknown) (unknown) (no date) (unknown) (unknown) 300 mg PO DAILY (units unknown) (unknown) (unknown) (no date) (unknown) (unknown) 40 mg PO 0700 Qty: 3 0 0RF (units unknown) (unknown) (unknown) (no date) (unknown) (unknown) 50 mg PO DAILY (units unknown) (unknown) (unknown) (no date) (unknown) (unknown) ALT (<35) IU/L (units unknown) (unknown) (unknown) (no date) (unknown) (unknown) ALT 25 (<35) IU/L (units unknown) (unknown) (unknown) (no date) (unknown) (unknown) AST (14-36) IU/L (units unknown) (unknown) (unknown) (no date) (unknown) (unknown) AST 77 H (14-36) IU/L (units unknown) (unknown) (unknown) (no date) (unknown) (unknown) Admin: 07/31/22 12:5 9 Dose: 408 mls/hr (units unknown) (unknown) (unknown) (no date) (unknown) (unknown) Age/Sex: 31 / F (units unknown) (unknown) (unknown) (no date) (unknown) (unknown) Albumin (3.5-5.0) g/dL (units unknown) (unknown) (unknown) (no date) (unknown) (unknown) Albumin 4.4 (3.5-5.0 ) g/dL (units unknown) (unknown) (unknown) (no date) (unknown) (unknown) Albumin/Globulin Ratio (1.0-2.8) (units unknown) (unknown) (unknown) (no date) (unknown) (unknown) Albumin/Globulin Ratio 1.6 (1.0-2.8) (units unknown) (unknown) (unknown) (no date) (unknown) (unknown) Alcohol withdrawal delirium, acute, hyperactive (units unknown) (unknown) (unknown) (no date) (unknown) (unknown) Alcoholism (units unknown) (unknown) (unknown) (no date) (unknown) (unknown) Alkaline Phosphatase (38-126) U/L (units unknown) (unknown) (unknown) (no date) (unknown) (unknown) Alkaline Phosphatase 76 (38-126) U/L (units unknown) (unknown) (unknown) (no date) (unknown) (unknown) Allergies (units unknown) (unknown) (unknown) (no date) (unknown) (unknown) Allergy/AdvReac Type Severity Reaction Status Date / Time (units unknown) (unknown) (unknown) (no date) (unknown) (unknown) Anemia (-2018) (units unknown) (unknown) (unknown) (no date) (unknown) (unknown) Auscultation: clear to auscultation bilaterally (units unknown) (unknown) (unknown) (no date) (unknown) (unknown) BUN (7-17) mg/dL (units unknown) (unknown) (unknown) (no date) (unknown) (unknown) BUN 12 (7-17) mg/dL (units unknown) (unknown) (unknown) (no date) (unknown) (unknown) BUN/Creatinine Ratio (6-22) (units unknown) (unknown) (unknown) (no date) (unknown) (unknown) BUN/Creatinine Ratio 17.4 (6-22) (units unknown) (unknown) (unknown) (no date) (unknown) (unknown) Baso # (Auto) (0-100 ) /uL (units unknown) (unknown) (unknown) (no date) (unknown) (unknown) Baso # (Auto) 0 (0-100) /uL (units unknown) (unknown) (unknown) (no date) (unknown) (unknown) Baso % (Auto) (0-2) % (units unknown) (unknown) (unknown) (no date) (unknown) (unknown) Baso % (Auto) 1.0 (0-2) % (units unknown) (unknown) (unknown) (no date) (unknown) (unknown) Bedside Urine Bilirubin + 1 (units unknown) (unknown) (unknown) (no date) (unknown) (unknown) Bedside Urine Glucos e Negative (units unknown) (unknown) (unknown) (no date) (unknown) (unknown) Bedside Urine Ketone + 15 (units unknown) (unknown) (unknown) (no date) (unknown) (unknown) Bedside Urine Leukocytes - Negative (units unknown) (unknown) (unknown) (no date) (unknown) (unknown) Bedside Urine Nitrit e - Negative (units unknown) (unknown) (unknown) (no date) (unknown) (unknown) Bedside Urine Occult Blood - Negative (units unknown) (unknown) (unknown) (no date) (unknown) (unknown) Bedside Urine Protei n + 30 (units unknown) (unknown) (unknown) (no date) (unknown) (unknown) Bedside Urine Urobilinogen - Negative (units unknown) (unknown) (unknown) (no date) (unknown) (unknown) Bedside Urine pH 6.0 (units unknown) (unknown) (unknown) (no date) (unknown) (unknown) Blood Pressure 111/6 3 110/61 (units unknown) (unknown) (unknown) (no date) (unknown) (unknown) Blood Pressure 111/70 (units unknown) (unknown) (unknown) (no date) (unknown) (unknown) Blood Pressure 112/65 (units unknown) (unknown) (unknown) (no date) (unknown) (unknown) Blood Pressure 113/5 9 L (units unknown) (unknown) (unknown) (no date) (unknown) (unknown) Blood Pressure 113/71 (units unknown) (unknown) (unknown) (no date) (unknown) (unknown) Blood Pressure 113/7 3 116/75 (units unknown) (unknown) (unknown) (no date) (unknown) (unknown) Blood Pressure 116/5 3 L 124/73 (units unknown) (unknown) (unknown) (no date) (unknown) (unknown) Blood Pressure 117/5 6 L (units unknown) (unknown) (unknown) (no date) (unknown) (unknown) Blood Pressure 118/6 9 116/81 (units unknown) (unknown) (unknown) (no date) (unknown) (unknown) Blood Pressure 119/61 (units unknown) (unknown) (unknown) (no date) (unknown) (unknown) Blood Pressure 120/75 (units unknown) (unknown) (unknown) (no date) (unknown) (unknown) Blood Pressure 120/7 8 163/104 H (units unknown) (unknown) (unknown) (no date) (unknown) (unknown) Blood Pressure 121/63 (units unknown) (unknown) (unknown) (no date) (unknown) (unknown) Blood Pressure 126/9 0 129/66 (units unknown) (unknown) (unknown) (no date) (unknown) (unknown) Blood Pressure 137/6 5 118/80 (units unknown) (unknown) (unknown) (no date) (unknown) (unknown) Blood Pressure 137/8 4 07/31/22 12:30 (units unknown) (unknown) (unknown) (no date) (unknown) (unknown) Blood Pressure 137/84 (units unknown) (unknown) (unknown) (no date) (unknown) (unknown) Blood Pressure 138/79 (units unknown) (unknown) (unknown) (no date) (unknown) (unknown) Blood Pressure 152/8 8 H 134/72 (units unknown) (unknown) (unknown) (no date) (unknown) (unknown) Blood Pressure (units unknown) (unknown) (unknown) (no date) (unknown) (unknown) Calcium (8.4-10.2) mg/dL (units unknown) (unknown) (unknown) (no date) (unknown) (unknown) Calcium 8.7 (8.4-10.2) mg/dL (units unknown) (unknown) (unknown) (no date) (unknown) (unknown) Carbon Dioxide (22-32) mmol/L (units unknown) (unknown) (unknown) (no date) (unknown) (unknown) Carbon Dioxide 24 (22-32) mmol/L (units unknown) (unknown) (unknown) (no date) (unknown) (unknown) Cardio (units unknown) (unknown) (unknown) (no date) (unknown) (unknown) Chief complaint: Toxicology Problem (units unknown) (unknown) (unknown) (no date) (unknown) (unknown) Chloride (98-107) mmol/L (units unknown) (unknown) (unknown) (no date) (unknown) (unknown) Chloride 105 (98-107 ) mmol/L (units unknown) (unknown) (unknown) (no date) (unknown) (unknown) Complete Blood Count AUTO DIFF Stat (units unknown) (unknown) (unknown) (no date) (unknown) (unknown) Comprehensive Metabolic Panel Stat (units unknown) (unknown) (unknown) (no date) (unknown) (unknown) Const (units unknown) (unknown) (unknown) (no date) (unknown) (unknown) Course (units unknown) (unknown) (unknown) (no date) (unknown) (unknown) Creatinine (0.52-1.04) mg/dL (units unknown) (unknown) (unknown) (no date) (unknown) (unknown) Creatinine 0.69 (0.52-1.04) mg/dL (units unknown) (unknown) (unknown) (no date) (unknown) (unknown) : 1990 Acct:[id number] (units unknown) (unknown) (unknown) (no date) (unknown) (unknown) Date of Service: 07/31/22 (units unknown) (unknown) (unknown) (no date) (unknown) (unknown) Departure (units unknown) (unknown) (unknown) (no date) (unknown) (unknown) Discharge Plan (units unknown) (unknown) (unknown) (no date) (unknown) (unknown) Discontinued Medications (units unknown) (unknown) (unknown) (no date) (unknown) (unknown) Documented By: OSCAR (units unknown) (unknown) (unknown) (no date) (unknown) (unknown) Documented By: GRADY (units unknown) (unknown) (unknown) (no date) (unknown) (unknown) ED Orders (units unknown) (unknown) (unknown) (no date) (unknown) (unknown) ER Physician: Will Benitez D.O. (units unknown) (unknown) (unknown) (no date) (unknown) (unknown) Effort + Inspection: normal respiratory effort (units unknown) (unknown) (unknown) (no date) (unknown) (unknown) Emergency Report (units unknown) (unknown) (unknown) (no date) (unknown) (unknown) Eos # (Auto) (0-450) /uL (units unknown) (unknown) (unknown) (no date) (unknown) (unknown) Eos # (Auto) 100 (0-450) /uL (units unknown) (unknown) (unknown) (no date) (unknown) (unknown) Eos % (Auto) (2-4) % (units unknown) (unknown) (unknown) (no date) (unknown) (unknown) Eos % (Auto) 3.3 (2-4) % (units unknown) (unknown) (unknown) (no date) (unknown) (unknown) Esterase (units unknown) (unknown) (unknown) (no date) (unknown) (unknown) Estimated GFR > 60 (>60) mL/min (units unknown) (unknown) (unknown) (no date) (unknown) (unknown) Estimated GFR (>60) mL/min (units unknown) (unknown) (unknown) (no date) (unknown) (unknown) Ethanol (ETOH) Stat (units unknown) (unknown) (unknown) (no date) (unknown) (unknown) Ethyl Alcohol < 10 ( - 10) mg/dL (units unknown) (unknown) (unknown) (no date) (unknown) (unknown) Ethyl Alcohol ( - 10 ) mg/dL (units unknown) (unknown) (unknown) (no date) (unknown) (unknown) Exam (units unknown) (unknown) (unknown) (no date) (unknown) (unknown) Extrem (units unknown) (unknown) (unknown) (no date) (unknown) (unknown) Family History (units unknown) (unknown) (unknown) (no date) (unknown) (unknown) Family/Other Alcoholism (units unknown) (unknown) (unknown) (no date) (unknown) (unknown) Family/Other Diabete s mellitus (units unknown) (unknown) (unknown) (no date) (unknown) (unknown) Father Alcoholism (units unknown) (unknown) (unknown) (no date) (unknown) (unknown) Tonia Schneider MD [Primary Care Provider] (units unknown) (unknown) (unknown) (no date) (unknown) (unknown) General (units unknown) (unknown) (unknown) (no date) (unknown) (unknown) General: cooperative (units unknown) (unknown) (unknown) (no date) (unknown) (unknown) General: no rashes o r lesions noted (units unknown) (unknown) (unknown) (no date) (unknown) (unknown) General: normal to inspection (units unknown) (unknown) (unknown) (no date) (unknown) (unknown) Globulin (1.7-4.1) g/dL (units unknown) (unknown) (unknown) (no date) (unknown) (unknown) Globulin 2.8 (1.7-4.1) g/dL (units unknown) (unknown) (unknown) (no date) (unknown) (unknown) Glucose (70-100) mg/dL (units unknown) (unknown) (unknown) (no date) (unknown) (unknown) Glucose 102 H (70-100) mg/dL (units unknown) (unknown) (unknown) (no date) (unknown) (unknown) Grandfather Smoker (units unknown) (unknown) (unknown) (no date) (unknown) (unknown) Grandfather Unknown whether patient has any health problems (units unknown) (unknown) (unknown) (no date) (unknown) (unknown) Grandmother Diabetes mellitus (units unknown) (unknown) (unknown) (no date) (unknown) (unknown) Grandmother Hypoglycemia (units unknown) (unknown) (unknown) (no date) (unknown) (unknown) H/O dilation and curettage (-12/14/16) (units unknown) (unknown) (unknown) (no date) (unknown) (unknown) H/O wisdom tooth extraction () (units unknown) (unknown) (unknown) (no date) (unknown) (unknown) HENMT (units unknown) (unknown) (unknown) (no date) (unknown) (unknown) HPI - General Adult (units unknown) (unknown) (unknown) (no date) (unknown) (unknown) HPI narrative: (units unknown) (unknown) (unknown) (no date) (unknown) (unknown) Hct (36-46) % (units unknown) (unknown) (unknown) (no date) (unknown) (unknown) Hct 32.3 L (36-46) % (units unknown) (unknown) (unknown) (no date) (unknown) (unknown) Head: normal to inspection and normocephalic (units unknown) (unknown) (unknown) (no date) (unknown) (unknown) Hgb (12.0-16.0) g/dL (units unknown) (unknown) (unknown) (no date) (unknown) (unknown) Hgb 10.6 L (12.0-16.0) g/dL (units unknown) (unknown) (unknown) (no date) (unknown) (unknown) History of Present Illness (units unknown) (unknown) (unknown) (no date) (unknown) (unknown) Home Medications (units unknown) (unknown) (unknown) (no date) (unknown) (unknown) Ictotest Urine Stat (units unknown) (unknown) (unknown) (no date) (unknown) (unknown) Initial Vital Signs (units unknown) (unknown) (unknown) (no date) (unknown) (unknown) Initial Vital Signs: (units unknown) (unknown) (unknown) (no date) (unknown) (unknown) Insomnia (units unknown) (unknown) (unknown) (no date) (unknown) (unknown) Is anxious appearing (units unknown) (unknown) (unknown) (no date) (unknown) (unknown) [address] [address] (units unknown) (unknown) (unknown) (no date) (unknown) (unknown) Lab Data (units unknown) (unknown) (unknown) (no date) (unknown) (unknown) Lab Results (units unknown) (unknown) (unknown) (no date) (unknown) (unknown) Lab results reviewed : Yes I reviewed the patient's lab results. (units unknown) (unknown) (unknown) (no date) (unknown) (unknown) Labs: (units unknown) (unknown) (unknown) (no date) (unknown) (unknown) Last Admin: 07/31/22 12:59 Dose: 1 mg (units unknown) (unknown) (unknown) (no date) (unknown) (unknown) Last Admin: 07/31/22 12:59 Dose: 260 mg (units unknown) (unknown) (unknown) (no date) (unknown) (unknown) Last Admin: 07/31/22 13:00 Dose: 1 tab (units unknown) (unknown) (unknown) (no date) (unknown) (unknown) Last Admin: 07/31/22 17:20 Dose: 1 mg (units unknown) (unknown) (unknown) (no date) (unknown) (unknown) Last Infusion: 07/31/22 13:23 Dose: 0 mls/hr (units unknown) (unknown) (unknown) (no date) (unknown) (unknown) Lipase (23-300) U/L (units unknown) (unknown) (unknown) (no date) (unknown) (unknown) Lipase 366 H (23-300 ) U/L (units unknown) (unknown) (unknown) (no date) (unknown) (unknown) Lipase Stat (units unknown) (unknown) (unknown) (no date) (unknown) (unknown) Lorazepam (Lorazepam 2 Mg/Ml Inj) 1 mg IV NOW ONE (units unknown) (unknown) (unknown) (no date) (unknown) (unknown) Lymph # (Auto) (4845-9259) /uL (units unknown) (unknown) (unknown) (no date) (unknown) (unknown) Lymph # (Auto) 1200 (6909-7680) /uL (units unknown) (unknown) (unknown) (no date) (unknown) (unknown) Lymph % (Auto) (25-40) % (units unknown) (unknown) (unknown) (no date) (unknown) (unknown) Lymph % (Auto) 27.8 (25-40) % (units unknown) (unknown) (unknown) (no date) (unknown) (unknown) MCH (26-34) PG (units unknown) (unknown) (unknown) (no date) (unknown) (unknown) MCH 26.4 (26-34) PG (units unknown) (unknown) (unknown) (no date) (unknown) (unknown) MCHC (30-36) % (units unknown) (unknown) (unknown) (no date) (unknown) (unknown) MCHC 32.8 (30-36) % (units unknown) (unknown) (unknown) (no date) (unknown) (unknown) MCV (80-100) fL (units unknown) (unknown) (unknown) (no date) (unknown) (unknown) MCV 80.4 (80-100) fL (units unknown) (unknown) (unknown) (no date) (unknown) (unknown) MDM Narrative (units unknown) (unknown) (unknown) (no date) (unknown) (unknown) Medical Decision Making (units unknown) (unknown) (unknown) (no date) (unknown) (unknown) Medical History (units unknown) (unknown) (unknown) (no date) (unknown) (unknown) Medical Records (units unknown) (unknown) (unknown) (no date) (unknown) (unknown) Medical decision making narrative: (units unknown) (unknown) (unknown) (no date) (unknown) (unknown) Medical records reviewed: Yes I reviewed the patient's medical records. (units unknown) (unknown) (unknown) (no date) (unknown) (unknown) Medication Instructions Recorded Confirmed (units unknown) (unknown) (unknown) (no date) (unknown) (unknown) Medication Instructions Recorded (units unknown) (unknown) (unknown) (no date) (unknown) (unknown) Menometrorrhagia (units unknown) (unknown) (unknown) (no date) (unknown) (unknown) Mode of arrival: Ambulatory (units unknown) (unknown) (unknown) (no date) (unknown) (unknown) [place] # (Auto) (0-900 ) /uL (units unknown) (unknown) (unknown) (no date) (unknown) (unknown) [place] # (Auto) 300 (0-900) /uL (units unknown) (unknown) (unknown) (no date) (unknown) (unknown) [place] % (Auto) (3-14) % (units unknown) (unknown) (unknown) (no date) (unknown) (unknown) [place] % (Auto) 7.9 (3-14) % (units unknown) (unknown) (unknown) (no date) (unknown) (unknown) Mother Diabetes mellitus (units unknown) (unknown) (unknown) (no date) (unknown) (unknown) Multivitamins (Multivitamin 1 Tablet) 1 tab PO DAILY SANDY (units unknown) (unknown) (unknown) (no date) (unknown) (unknown) Neuro (units unknown) (unknown) (unknown) (no date) (unknown) (unknown) Neut # (Auto) (0028-9026) /uL (units unknown) (unknown) (unknown) (no date) (unknown) (unknown) Neut # (Auto) 2600 (4859-9485) /uL (units unknown) (unknown) (unknown) (no date) (unknown) (unknown) Neut % (Auto) (50-75 ) % (units unknown) (unknown) (unknown) (no date) (unknown) (unknown) Neut % (Auto) 60.0 (50-75) % (units unknown) (unknown) (unknown) (no date) (unknown) (unknown) No Action (units unknown) (unknown) (unknown) (no date) (unknown) (unknown) Obesity (units unknown) (unknown) (unknown) (no date) (unknown) (unknown) Ordered: (units unknown) (unknown) (unknown) (no date) (unknown) (unknown) Orders (units unknown) (unknown) (unknown) (no date) (unknown) (unknown) Other: (units unknown) (unknown) (unknown) (no date) (unknown) (unknown) Overweight (units unknown) (unknown) (unknown) (no date) (unknown) (unknown) Oxygen Delivery Method Room Air 03/21/23 12:30 (units unknown) (unknown) (unknown) (no date) (unknown) (unknown) Oxygen Delivery Method Room Air (units unknown) (unknown) (unknown) (no date) (unknown) (unknown) Oxygen Delivery Method (units unknown) (unknown) (unknown) (no date) (unknown) (unknown) Patient History (units unknown) (unknown) (unknown) (no date) (unknown) (unknown) Patient is a 31-year-old female. Has a history of alcohol use disorder. Has (units unknown) (unknown) (unknown) (no date) (unknown) (unknown) Patient is alert oriented. Has tremors. No seizure activity. Moves all 4 (units unknown) (unknown) (unknown) (no date) (unknown) (unknown) Patient states that her last drink was on Saturday which would have been 4 days (units unknown) (unknown) (unknown) (no date) (unknown) (unknown) Patient: Sarah Connors MR#: M (units unknown) (unknown) (unknown) (no date) (unknown) (unknown) Phenobarbital (Phenobarbital 65 Mg/Ml Vial) 260 mg IV NOW ONE (units unknown) (unknown) (unknown) (no date) (unknown) (unknown) Plt Count (150-400) X103/uL (units unknown) (unknown) (unknown) (no date) (unknown) (unknown) Plt Count 229 (150-400) X103/uL (units unknown) (unknown) (unknown) (no date) (unknown) (unknown) Point of Care Testing (units unknown) (unknown) (unknown) (no date) (unknown) (unknown) Point of care testing: (units unknown) (unknown) (unknown) (no date) (unknown) (unknown) Potassium (3.4-5.1) mmol/L (units unknown) (unknown) (unknown) (no date) (unknown) (unknown) Potassium 3.8 (3.4-5.1) mmol/L (units unknown) (unknown) (unknown) (no date) (unknown) (unknown) Test Results Negative (units unknown) (unknown) (unknown) (no date) (unknown) (unknown) Test Serum,Qual Stat (units unknown) (unknown) (unknown) (no date) (unknown) (unknown) Prescriptions: (units unknown) (unknown) (unknown) (no date) (unknown) (unknown) Previous Rx's (units unknown) (unknown) (unknown) (no date) (unknown) (unknown) Psych (units unknown) (unknown) (unknown) (no date) (unknown) (unknown) Pulse Oximetry 100 07/31/22 12:30 (units unknown) (unknown) (unknown) (no date) (unknown) (unknown) Pulse Oximetry 100 100 99 (units unknown) (unknown) (unknown) (no date) (unknown) (unknown) Pulse Oximetry 100 9 3 100 (units unknown) (unknown) (unknown) (no date) (unknown) (unknown) Pulse Oximetry 100 94 (units unknown) (unknown) (unknown) (no date) (unknown) (unknown) Pulse Oximetry 100 99 (units unknown) (unknown) (unknown) (no date) (unknown) (unknown) Pulse Oximetry 100 (units unknown) (unknown) (unknown) (no date) (unknown) (unknown) Pulse Oximetry 94 (units unknown) (unknown) (unknown) (no date) (unknown) (unknown) Pulse Oximetry 96 97 (units unknown) (unknown) (unknown) (no date) (unknown) (unknown) Pulse Oximetry 96 (units unknown) (unknown) (unknown) (no date) (unknown) (unknown) Pulse Oximetry 98 99 (units unknown) (unknown) (unknown) (no date) (unknown) (unknown) Pulse Oximetry 99 10 0 100 (units unknown) (unknown) (unknown) (no date) (unknown) (unknown) Pulse Oximetry 99 98 (units unknown) (unknown) (unknown) (no date) (unknown) (unknown) Pulse Oximetry 99 99 (units unknown) (unknown) (unknown) (no date) (unknown) (unknown) Pulse Oximetry 99 (units unknown) (unknown) (unknown) (no date) (unknown) (unknown) Pulse Oximetry (units unknown) (unknown) (unknown) (no date) (unknown) (unknown) Pulse Rate 62 64 (units unknown) (unknown) (unknown) (no date) (unknown) (unknown) Pulse Rate 62 (units unknown) (unknown) (unknown) (no date) (unknown) (unknown) Pulse Rate 63 60 (units unknown) (unknown) (unknown) (no date) (unknown) (unknown) Pulse Rate 63 65 (units unknown) (unknown) (unknown) (no date) (unknown) (unknown) Pulse Rate 64 62 (units unknown) (unknown) (unknown) (no date) (unknown) (unknown) Pulse Rate 64 73 (units unknown) (unknown) (unknown) (no date) (unknown) (unknown) Pulse Rate 64 (units unknown) (unknown) (unknown) (no date) (unknown) (unknown) Pulse Rate 65 66 66 (units unknown) (unknown) (unknown) (no date) (unknown) (unknown) Pulse Rate 65 75 (units unknown) (unknown) (unknown) (no date) (unknown) (unknown) Pulse Rate 66 66 67 (units unknown) (unknown) (unknown) (no date) (unknown) (unknown) Pulse Rate 66 (units unknown) (unknown) (unknown) (no date) (unknown) (unknown) Pulse Rate 67 65 (units unknown) (unknown) (unknown) (no date) (unknown) (unknown) Pulse Rate 67 72 (units unknown) (unknown) (unknown) (no date) (unknown) (unknown) Pulse Rate 68 07/31/22 12:30 (units unknown) (unknown) (unknown) (no date) (unknown) (unknown) Pulse Rate 68 66 66 (units unknown) (unknown) (unknown) (no date) (unknown) (unknown) Pulse Rate 69 (units unknown) (unknown) (unknown) (no date) (unknown) (unknown) Pulse Rate 71 (units unknown) (unknown) (unknown) (no date) (unknown) (unknown) Pulse Rate 72 (units unknown) (unknown) (unknown) (no date) (unknown) (unknown) RBC (4.0-5.2) X106/uL (units unknown) (unknown) (unknown) (no date) (unknown) (unknown) RBC 4.02 (4.0-5.2) X106/uL (units unknown) (unknown) (unknown) (no date) (unknown) (unknown) RDW (11.6-14.8) % (units unknown) (unknown) (unknown) (no date) (unknown) (unknown) RDW 19.5 H (11.6-14.8) % (units unknown) (unknown) (unknown) (no date) (unknown) (unknown) ROS Unobtainable: Al l systems reviewed + are unremarkable except as noted in HPI (units unknown) (unknown) (unknown) (no date) (unknown) (unknown) Rate: regular rate (units unknown) (unknown) (unknown) (no date) (unknown) (unknown) Referrals: (units unknown) (unknown) (unknown) (no date) (unknown) (unknown) Related Data (units unknown) (unknown) (unknown) (no date) (unknown) (unknown) Resp (units unknown) (unknown) (unknown) (no date) (unknown) (unknown) Respiratory Rate 17 07/31/22 12:30 (units unknown) (unknown) (unknown) (no date) (unknown) (unknown) Respiratory Rate 17 30 H 29 H (units unknown) (unknown) (unknown) (no date) (unknown) (unknown) Respiratory Rate 20 18 (units unknown) (unknown) (unknown) (no date) (unknown) (unknown) Respiratory Rate 20 32 H 21 (units unknown) (unknown) (unknown) (no date) (unknown) (unknown) Respiratory Rate 21 20 (units unknown) (unknown) (unknown) (no date) (unknown) (unknown) Respiratory Rate 22 (units unknown) (unknown) (unknown) (no date) (unknown) (unknown) Respiratory Rate 23 18 (units unknown) (unknown) (unknown) (no date) (unknown) (unknown) Respiratory Rate 23 24 (units unknown) (unknown) (unknown) (no date) (unknown) (unknown) Respiratory Rate 23 (units unknown) (unknown) (unknown) (no date) (unknown) (unknown) Respiratory Rate 25 H (units unknown) (unknown) (unknown) (no date) (unknown) (unknown) Respiratory Rate 26 H 17 (units unknown) (unknown) (unknown) (no date) (unknown) (unknown) Respiratory Rate 26 H (units unknown) (unknown) (unknown) (no date) (unknown) (unknown) Respiratory Rate 27 H (units unknown) (unknown) (unknown) (no date) (unknown) (unknown) Respiratory Rate 29 H 36 H 34 H (units unknown) (unknown) (unknown) (no date) (unknown) (unknown) Respiratory Rate 29 H 38 H (units unknown) (unknown) (unknown) (no date) (unknown) (unknown) Respiratory Rate 31 H (units unknown) (unknown) (unknown) (no date) (unknown) (unknown) Respiratory Rate 32 H (units unknown) (unknown) (unknown) (no date) (unknown) (unknown) Respiratory Rate 33 H (units unknown) (unknown) (unknown) (no date) (unknown) (unknown) Respiratory Rate 34 H (units unknown) (unknown) (unknown) (no date) (unknown) (unknown) Review of Systems (units unknown) (unknown) (unknown) (no date) (unknown) (unknown) Rhythm: regular rhythm (units unknown) (unknown) (unknown) (no date) (unknown) (unknown) S/P myringotomy with insertion of tube (units unknown) (unknown) (unknown) (no date) (unknown) (unknown) (spontaneous vaginal delivery) (-09/05/18) (units unknown) (unknown) (unknown) (no date) (unknown) (unknown) Serum , Kiko l (Negative) (units unknown) (unknown) (unknown) (no date) (unknown) (unknown) Serum , Kiko l Negative (Negative) (units unknown) (unknown) (unknown) (no date) (unknown) (unknown) Signed By: (units unknown) (unknown) (unknown) (no date) (unknown) (unknown) Skin (units unknown) (unknown) (unknown) (no date) (unknown) (unknown) Smoker (units unknown) (unknown) (unknown) (no date) (unknown) (unknown) Smoking Status: Former smoker (units unknown) (unknown) (unknown) (no date) (unknown) (unknown) Social History (units unknown) (unknown) (unknown) (no date) (unknown) (unknown) Sodium (137-145) mmol/L (units unknown) (unknown) (unknown) (no date) (unknown) (unknown) Sodium 137 (137-145) mmol/L (units unknown) (unknown) (unknown) (no date) (unknown) (unknown) Source: patient (units unknown) (unknown) (unknown) (no date) (unknown) (unknown) Stated complaint: SOB, tremors (units unknown) (unknown) (unknown) (no date) (unknown) (unknown) Stop: 07/31/22 12:36 (units unknown) (unknown) (unknown) (no date) (unknown) (unknown) Stop: 07/31/22 15:18 (units unknown) (unknown) (unknown) (no date) (unknown) (unknown) Substance Use Type: does not use (units unknown) (unknown) (unknown) (no date) (unknown) (unknown) Surgical History (units unknown) (unknown) (unknown) (no date) (unknown) (unknown) Temperature 97.7 F 07/31/22 12:30 (units unknown) (unknown) (unknown) (no date) (unknown) (unknown) Temperature 97.7 F (units unknown) (unknown) (unknown) (no date) (unknown) (unknown) Temperature (units unknown) (unknown) (unknown) (no date) (unknown) (unknown) Thiamine HCl 200 mg/ Sodium (Chloride) 102 mls @ 408 mls/hr IV DAILY SANDY (units unknown) (unknown) (unknown) (no date) (unknown) (unknown) Time Seen by Provider: 07/31/22 12:35 (units unknown) (unknown) (unknown) (no date) (unknown) (unknown) Total Bilirubin (0.2-1.3) mg/dL (units unknown) (unknown) (unknown) (no date) (unknown) (unknown) Total Bilirubin 0.8 (0.2-1.3) mg/dL (units unknown) (unknown) (unknown) (no date) (unknown) (unknown) Total Protein (6.3-8.2) g/dL (units unknown) (unknown) (unknown) (no date) (unknown) (unknown) Total Protein 7.2 (6.3-8.2) g/dL (units unknown) (unknown) (unknown) (no date) (unknown) (unknown) U Benzodiazepines Scrn (Negative) (units unknown) (unknown) (unknown) (no date) (unknown) (unknown) U Benzodiazepines Scrn Positive H (Negative) (units unknown) (unknown) (unknown) (no date) (unknown) (unknown) U Marijuana (THC) Screen (Negative) (units unknown) (unknown) (unknown) (no date) (unknown) (unknown) U Marijuana (THC) Screen Negative (Negative) (units unknown) (unknown) (unknown) (no date) (unknown) (unknown) U Methamphetamines Scrn (Negative) (units unknown) (unknown) (unknown) (no date) (unknown) (unknown) U Methamphetamines Scrn Negative (Negative) (units unknown) (unknown) (unknown) (no date) (unknown) (unknown) U Opiates 300ng/mL cut (Negative) (units unknown) (unknown) (unknown) (no date) (unknown) (unknown) U Opiates 300ng/mL cut Negative (Negative) (units unknown) (unknown) (unknown) (no date) (unknown) (unknown) U Tricyclic Antidepress (Negative) (units unknown) (unknown) (unknown) (no date) (unknown) (unknown) U Tricyclic Antidepress Positive H (Negative) (units unknown) (unknown) (unknown) (no date) (unknown) (unknown) Ur Amphetamines Screen (Negative) (units unknown) (unknown) (unknown) (no date) (unknown) (unknown) Ur Amphetamines Screen Negative (Negative) (units unknown) (unknown) (unknown) (no date) (unknown) (unknown) Ur Barbiturates Screen (Negative) (units unknown) (unknown) (unknown) (no date) (unknown) (unknown) Ur Barbiturates Screen Positive H (Negative) (units unknown) (unknown) (unknown) (no date) (unknown) (unknown) Ur Bilirubin Confirm (Negative) (units unknown) (unknown) (unknown) (no date) (unknown) (unknown) Ur Bilirubin Confirm Negative (Negative) (units unknown) (unknown) (unknown) (no date) (unknown) (unknown) Ur Culture Indicated ? Cult not indicated (units unknown) (unknown) (unknown) (no date) (unknown) (unknown) Ur Culture Indicated? (units unknown) (unknown) (unknown) (no date) (unknown) (unknown) Ur Leukocyte [place]steras e (NEGATIVE) (units unknown) (unknown) (unknown) (no date) (unknown) (unknown) Ur Leukocyte Esteras e Negative (NEGATIVE) (units unknown) (unknown) (unknown) (no date) (unknown) (unknown) Ur MDMA Scrn (Ecstasy) (Negative) (units unknown) (unknown) (unknown) (no date) (unknown) (unknown) Ur MDMA Scrn (Ecstasy) Negative (Negative) (units unknown) (unknown) (unknown) (no date) (unknown) (unknown) Ur Oxycodone Screen (Negative) (units unknown) (unknown) (unknown) (no date) (unknown) (unknown) Ur Oxycodone Screen Negative (Negative) (units unknown) (unknown) (unknown) (no date) (unknown) (unknown) Ur Phencyclidine Scr n (Negative) (units unknown) (unknown) (unknown) (no date) (unknown) (unknown) Ur Phencyclidine Scr n Negative (Negative) (units unknown) (unknown) (unknown) (no date) (unknown) (unknown) Ur Specific [place] >=1.030 H (1.000-1.035) (units unknown) (unknown) (unknown) (no date) (unknown) (unknown) Ur Specific [place] (1.000-1.035) (units unknown) (unknown) (unknown) (no date) (unknown) (unknown) Ur Squamous Epith Cells (0-5/HPF) (units unknown) (unknown) (unknown) (no date) (unknown) (unknown) Ur Squamous Epith Cells 5-10 /hpf H (0-5/HPF) (units unknown) (unknown) (unknown) (no date) (unknown) (unknown) Urinalysis and Microscopic Stat (units unknown) (unknown) (unknown) (no date) (unknown) (unknown) Urine Appearance Sl cloudy (units unknown) (unknown) (unknown) (no date) (unknown) (unknown) Urine Appearance (units unknown) (unknown) (unknown) (no date) (unknown) (unknown) Urine Bacteria (None) (units unknown) (unknown) (unknown) (no date) (unknown) (unknown) Urine Bacteria None seen (None) (units unknown) (unknown) (unknown) (no date) (unknown) (unknown) Urine Bilirubin (NEGATIVE) (units unknown) (unknown) (unknown) (no date) (unknown) (unknown) Urine Bilirubin 1+ H D (NEGATIVE) (units unknown) (unknown) (unknown) (no date) (unknown) (unknown) Urine Cocaine Screen (Negative) (units unknown) (unknown) (unknown) (no date) (unknown) (unknown) Urine Cocaine Screen Negative (Negative) (units unknown) (unknown) (unknown) (no date) (unknown) (unknown) Urine Color Yellow (units unknown) (unknown) (unknown) (no date) (unknown) (unknown) Urine Color (units unknown) (unknown) (unknown) (no date) (unknown) (unknown) Urine Dip (units unknown) (unknown) (unknown) (no date) (unknown) (unknown) Urine Drug Screen, Rapid Stat (units unknown) (unknown) (unknown) (no date) (unknown) (unknown) Urine Glucose (UA) (Negative) g/dL (units unknown) (unknown) (unknown) (no date) (unknown) (unknown) Urine Glucose (UA) Negative (Negative) g/dL (units unknown) (unknown) (unknown) (no date) (unknown) (unknown) Urine Ketones (NEGATIVE) (units unknown) (unknown) (unknown) (no date) (unknown) (unknown) Urine Ketones 1+ H (NEGATIVE) (units unknown) (unknown) (unknown) (no date) (unknown) (unknown) Urine Methadone Screen (Negative) (units unknown) (unknown) (unknown) (no date) (unknown) (unknown) Urine Methadone Screen Negative (Negative) (units unknown) (unknown) (unknown) (no date) (unknown) (unknown) Urine Nitrate (Negative) (units unknown) (unknown) (unknown) (no date) (unknown) (unknown) Urine Nitrate Negative (Negative) (units unknown) (unknown) (unknown) (no date) (unknown) (unknown) Urine Occult Blood (Negative) (units unknown) (unknown) (unknown) (no date) (unknown) (unknown) Urine Occult Blood Negative (Negative) (units unknown) (unknown) (unknown) (no date) (unknown) (unknown) Urine Protein (Negative) (units unknown) (unknown) (unknown) (no date) (unknown) (unknown) Urine Protein Trace H (Negative) (units unknown) (unknown) (unknown) (no date) (unknown) (unknown) Urine RBC (0-5/HPF) (units unknown) (unknown) (unknown) (no date) (unknown) (unknown) Urine RBC None seen (0-5/HPF) (units unknown) (unknown) (unknown) (no date) (unknown) (unknown) Urine Specific [place] 1.030 (units unknown) (unknown) (unknown) (no date) (unknown) (unknown) Urine Urobilinogen (0.2) E.U./dL (units unknown) (unknown) (unknown) (no date) (unknown) (unknown) Urine Urobilinogen 0.2 (0.2) E.U./dL (units unknown) (unknown) (unknown) (no date) (unknown) (unknown) Urine WBC (0-5/HPF) (units unknown) (unknown) (unknown) (no date) (unknown) (unknown) Urine WBC None seen (0-5/HPF) (units unknown) (unknown) (unknown) (no date) (unknown) (unknown) Urine pH (4.5-8.0) (units unknown) (unknown) (unknown) (no date) (unknown) (unknown) Urine pH 6.0 (4.5-8.0) (units unknown) (unknown) (unknown) (no date) (unknown) (unknown) Vital Signs - 8 hr (units unknown) (unknown) (unknown) (no date) (unknown) (unknown) Vital Signs (units unknown) (unknown) (unknown) (no date) (unknown) (unknown) Vital signs: (units unknown) (unknown) (unknown) (no date) (unknown) (unknown) WBC (4.5-11.0) X103/uL (units unknown) (unknown) (unknown) (no date) (unknown) (unknown) WBC 4.4 L (4.5-11.0) X103/uL (units unknown) (unknown) (unknown) (no date) (unknown) (unknown) [Embedded Image Not Available] (units unknown) (unknown) (unknown) (no date) (unknown) (unknown) [METOCLOPRAMIDE] (units unknown) (unknown) (unknown) (no date) (unknown) (unknown) ago. Today she is alert oriented x3. Is not clinically intoxicated. Her (units unknown) (unknown) (unknown) (no date) (unknown) (unknown) alcohol intake frequency: 3 or more drinks per day (units unknown) (unknown) (unknown) (no date) (unknown) (unknown) alcohol intake: former (units unknown) (unknown) (unknown) (no date) (unknown) (unknown) alcohol level is 0. In my opinion does have the capacity to make decisions. (units unknown) (unknown) (unknown) (no date) (unknown) (unknown) and below (units unknown) (unknown) (unknown) (no date) (unknown) (unknown) current occupational exposures/hazards: Yes (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 with Pandemic ) (units unknown) (unknown) (unknown) (no date) (unknown) (unknown) department for alcohol withdrawal. She states that after she was discharged she (units unknown) (unknown) (unknown) (no date) (unknown) (unknown) drink was on Saturday. She states that since she is stopped drinking she has had (units unknown) (unknown) (unknown) (no date) (unknown) (unknown) education level: college (units unknown) (unknown) (unknown) (no date) (unknown) (unknown) extremities. Is ambulatory. 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[employer] (units unknown) (unknown) (unknown) (no date) (unknown) (unknown) fluoxetine 10 mg capsule 10 mg PO DAILY 07/13/22 07/13/22 (units unknown) (unknown) (unknown) (no date) (unknown) (unknown) fluoxetine 10 mg capsule (units unknown) (unknown) (unknown) (no date) (unknown) (unknown) household members: children (units unknown) (unknown) (unknown) (no date) (unknown) (unknown) hydrocodone [HYDROCODONE] AdvReac Unknown VOMITING Verified 07/12/22 16:18 (units unknown) (unknown) (unknown) (no date) (unknown) (unknown) hydroxyzine HCl 50 m g tablet 50 mg PO DAILY 07/13/22 07/13/22 (units unknown) (unknown) (unknown) (no date) (unknown) (unknown) hydroxyzine HCl 50 m g tablet (units unknown) (unknown) (unknown) (no date) (unknown) (unknown) marital status: (units unknown) (unknown) (unknown) (no date) (unknown) (unknown) mcg tablet (Tab-A-Kael) (units unknown) (unknown) (unknown) (no date) (unknown) (unknown) metoclopramide Allergy Mild RASH/HIVES Verified 07/12/22 16:18 (units unknown) (unknown) (unknown) (no date) (unknown) (unknown) mg tablet (units unknown) (unknown) (unknown) (no date) (unknown) (unknown) multivitamin with folic acid 400 1 tab PO DAILY #30 tabs 07/14/22 (units unknown) (unknown) (unknown) (no date) (unknown) (unknown) multivitamin with folic acid [Tab-A-Kael] 400 mcg Tablet (units unknown) (unknown) (unknown) (no date) (unknown) (unknown) number of children: 1 (units unknown) (unknown) (unknown) (no date) (unknown) (unknown) occupational status: employed (units unknown) (unknown) (unknown) (no date) (unknown) (unknown) pantoprazole 40 mg Tablet,Delayed Release (Dr/Ec) (units unknown) (unknown) (unknown) (no date) (unknown) (unknown) pantoprazole 40 mg tablet,delayed 40 mg PO 0700 #30 tabs 07/14/22 (units unknown) (unknown) (unknown) (no date) (unknown) (unknown) past. At the beginning of the month and an extended stay here in the emergency (units unknown) (unknown) (unknown) (no date) (unknown) (unknown) quetiapine 300 mg tablet 300 mg PO DAILY 07/13/22 07/13/22 (units unknown) (unknown) (unknown) (no date) (unknown) (unknown) quetiapine 300 mg tablet (units unknown) (unknown) (unknown) (no date) (unknown) (unknown) release (units unknown) (unknown) (unknown) (no date) (unknown) (unknown) second hand exposure : No (growing up as a child - not currently) (units unknown) (unknown) (unknown) (no date) (unknown) (unknown) shaking and nausea and shortness of breath and tremors and generally not feeling (units unknown) (unknown) (unknown) (no date) (unknown) (unknown) special renee needs: No (units unknown) (unknown) (unknown) (no date) (unknown) (unknown) substance use type: does not use (units unknown) (unknown) (unknown) (no date) (unknown) (unknown) thiamine mononitrate (vit B1) 100 100 mg PO DAILY #30 tabs 07/14/22 (units unknown) (unknown) (unknown) (no date) (unknown) (unknown) thiamine mononitrate (vit B1) 100 mg Tablet (units unknown) (unknown) (unknown) (no date) (unknown) (unknown) very well. No seizure-like activity. She denies any other ingestions. (units unknown) (unknown) (unknown) (no date) (unknown) (unknown) went back to drinkin g and went on a ?[place] ?this was a couple days. Her last (units unknown) (unknown) (unknown) (no date) (unknown) (unknown) withdrawn from alcohol in the past. She states she is had a seizure in the (units unknown) (unknown) Result panel [id number] (unknown) (no date) (unknown) (unknown) (no value) (units unknown) (unknown) (unknown) (no date) (unknown) (unknown) <Electronically signed by Will Benitez D.O.> (units unknown) (unknown) (unknown) (no date) (unknown) (unknown) [id number] (units unknown) (unknown) (unknown) (no date) (unknown) (unknown) 07/31/22 07/31/22 07/31/22 Range/Units (units unknown) (unknown) (unknown) (no date) (unknown) (unknown) 07/31/22 12:40 (units unknown) (unknown) (unknown) (no date) (unknown) (unknown) 07/31/22 13:41 (units unknown) (unknown) (unknown) (no date) (unknown) (unknown) 07/31/22 1733 (units unknown) (unknown) (unknown) (no date) (unknown) (unknown) 07/31/22 Range/Units (units unknown) (unknown) (unknown) (no date) (unknown) (unknown) 07/31/22 (units unknown) (unknown) (unknown) (no date) (unknown) (unknown) 1 tab PO DAILY Qty: 30 0RF (units unknown) (unknown) (unknown) (no date) (unknown) (unknown) 10 mg PO DAILY (units unknown) (unknown) (unknown) (no date) (unknown) (unknown) 100 mg PO DAILY Qty: 30 0RF (units unknown) (unknown) (unknown) (no date) (unknown) (unknown) 12:30 07/31/22 (units unknown) (unknown) (unknown) (no date) (unknown) (unknown) 12:40 12:40 12:40 (units unknown) (unknown) (unknown) (no date) (unknown) (unknown) 12:40 13:41 13:41 (units unknown) (unknown) (unknown) (no date) (unknown) (unknown) 12:44 07/31/22 (units unknown) (unknown) (unknown) (no date) (unknown) (unknown) 12:46 07/31/22 (units unknown) (unknown) (unknown) (no date) (unknown) (unknown) 12:46 (units unknown) (unknown) (unknown) (no date) (unknown) (unknown) 13:00 07/31/22 (units unknown) (unknown) (unknown) (no date) (unknown) (unknown) 13:00 (units unknown) (unknown) (unknown) (no date) (unknown) (unknown) 13:08 07/31/22 (units unknown) (unknown) (unknown) (no date) (unknown) (unknown) 13:13 07/31/22 (units unknown) (unknown) (unknown) (no date) (unknown) (unknown) 13:13 (units unknown) (unknown) (unknown) (no date) (unknown) (unknown) 13:16 07/31/22 (units unknown) (unknown) (unknown) (no date) (unknown) (unknown) 13:16 (units unknown) (unknown) (unknown) (no date) (unknown) (unknown) 13:20 07/31/22 (units unknown) (unknown) (unknown) (no date) (unknown) (unknown) 13:26 07/31/22 (units unknown) (unknown) (unknown) (no date) (unknown) (unknown) 13:26 (units unknown) (unknown) (unknown) (no date) (unknown) (unknown) 13:30 07/31/22 (units unknown) (unknown) (unknown) (no date) (unknown) (unknown) 13:41 (units unknown) (unknown) (unknown) (no date) (unknown) (unknown) 14:00 (units unknown) (unknown) (unknown) (no date) (unknown) (unknown) 14:30 07/31/22 (units unknown) (unknown) (unknown) (no date) (unknown) (unknown) 15:00 07/31/22 (units unknown) (unknown) (unknown) (no date) (unknown) (unknown) 15:01 07/31/22 (units unknown) (unknown) (unknown) (no date) (unknown) (unknown) 15:01 (units unknown) (unknown) (unknown) (no date) (unknown) (unknown) 15:06 07/31/22 (units unknown) (unknown) (unknown) (no date) (unknown) (unknown) 15:06 (units unknown) (unknown) (unknown) (no date) (unknown) (unknown) 15:11 07/31/22 (units unknown) (unknown) (unknown) (no date) (unknown) (unknown) 15:16 07/31/22 (units unknown) (unknown) (unknown) (no date) (unknown) (unknown) 15:16 (units unknown) (unknown) (unknown) (no date) (unknown) (unknown) 15:20 07/31/22 (units unknown) (unknown) (unknown) (no date) (unknown) (unknown) 15:20 (units unknown) (unknown) (unknown) (no date) (unknown) (unknown) 15:30 07/31/22 (units unknown) (unknown) (unknown) (no date) (unknown) (unknown) 15:35 07/31/22 (units unknown) (unknown) (unknown) (no date) (unknown) (unknown) 15:35 (units unknown) (unknown) (unknown) (no date) (unknown) (unknown) 15:45 07/31/22 (units unknown) (unknown) (unknown) (no date) (unknown) (unknown) 16:00 07/31/22 (units unknown) (unknown) (unknown) (no date) (unknown) (unknown) 16:00 (units unknown) (unknown) (unknown) (no date) (unknown) (unknown) 16:05 07/31/22 (units unknown) (unknown) (unknown) (no date) (unknown) (unknown) 16:05 (units unknown) (unknown) (unknown) (no date) (unknown) (unknown) 16:10 07/31/22 (units unknown) (unknown) (unknown) (no date) (unknown) (unknown) 16:15 07/31/22 (units unknown) (unknown) (unknown) (no date) (unknown) (unknown) 16:15 (units unknown) (unknown) (unknown) (no date) (unknown) (unknown) 16:21 07/31/22 (units unknown) (unknown) (unknown) (no date) (unknown) (unknown) 16:21 (units unknown) (unknown) (unknown) (no date) (unknown) (unknown) 16:26 07/31/22 (units unknown) (unknown) (unknown) (no date) (unknown) (unknown) 16:30 (units unknown) (unknown) (unknown) (no date) (unknown) (unknown) 16:31 07/31/22 (units unknown) (unknown) (unknown) (no date) (unknown) (unknown) 16:35 07/31/22 (units unknown) (unknown) (unknown) (no date) (unknown) (unknown) 16:35 (units unknown) (unknown) (unknown) (no date) (unknown) (unknown) 16:46 07/31/22 (units unknown) (unknown) (unknown) (no date) (unknown) (unknown) 16:46 (units unknown) (unknown) (unknown) (no date) (unknown) (unknown) 16:51 07/31/22 (units unknown) (unknown) (unknown) (no date) (unknown) (unknown) 17:00 (units unknown) (unknown) (unknown) (no date) (unknown) (unknown) 17:11 07/31/22 (units unknown) (unknown) (unknown) (no date) (unknown) (unknown) 17:11 (units unknown) (unknown) (unknown) (no date) (unknown) (unknown) 300 mg PO DAILY (units unknown) (unknown) (unknown) (no date) (unknown) (unknown) 40 mg PO 0700 Qty: 3 0 0RF (units unknown) (unknown) (unknown) (no date) (unknown) (unknown) 50 mg PO DAILY (units unknown) (unknown) (unknown) (no date) (unknown) (unknown) ALT (<35) IU/L (units unknown) (unknown) (unknown) (no date) (unknown) (unknown) ALT 25 (<35) IU/L (units unknown) (unknown) (unknown) (no date) (unknown) (unknown) AST (14-36) IU/L (units unknown) (unknown) (unknown) (no date) (unknown) (unknown) AST 77 H (14-36) IU/L (units unknown) (unknown) (unknown) (no date) (unknown) (unknown) Activity Restrictions/Addition al Instructions: (units unknown) (unknown) (unknown) (no date) (unknown) (unknown) Admin: 07/31/22 12:5 9 Dose: 408 mls/hr (units unknown) (unknown) (unknown) (no date) (unknown) (unknown) After our discussion s of the risks and benefits of being admitted to the (units unknown) (unknown) (unknown) (no date) (unknown) (unknown) Age/Sex: 31 / F (units unknown) (unknown) (unknown) (no date) (unknown) (unknown) Albumin (3.5-5.0) g/dL (units unknown) (unknown) (unknown) (no date) (unknown) (unknown) Albumin 4.4 (3.5-5.0 ) g/dL (units unknown) (unknown) (unknown) (no date) (unknown) (unknown) Albumin/Globulin Ratio (1.0-2.8) (units unknown) (unknown) (unknown) (no date) (unknown) (unknown) Albumin/Globulin Ratio 1.6 (1.0-2.8) (units unknown) (unknown) (unknown) (no date) (unknown) (unknown) Alcohol use disorder , Alcohol withdrawal (units unknown) (unknown) (unknown) (no date) (unknown) (unknown) Alcohol withdrawal delirium, acute, hyperactive (units unknown) (unknown) (unknown) (no date) (unknown) (unknown) Alcoholism (units unknown) (unknown) (unknown) (no date) (unknown) (unknown) Alkaline Phosphatase (38-126) U/L (units unknown) (unknown) (unknown) (no date) (unknown) (unknown) Alkaline Phosphatase 76 (38-126) U/L (units unknown) (unknown) (unknown) (no date) (unknown) (unknown) Allergies (units unknown) (unknown) (unknown) (no date) (unknown) (unknown) Allergy/AdvReac Type Severity Reaction Status Date / Time (units unknown) (unknown) (unknown) (no date) (unknown) (unknown) Anemia (-2018) (units unknown) (unknown) (unknown) (no date) (unknown) (unknown) Auscultation: clear to auscultation bilaterally (units unknown) (unknown) (unknown) (no date) (unknown) (unknown) BUN (7-17) mg/dL (units unknown) (unknown) (unknown) (no date) (unknown) (unknown) BUN 12 (7-17) mg/dL (units unknown) (unknown) (unknown) (no date) (unknown) (unknown) BUN/Creatinine Ratio (6-22) (units unknown) (unknown) (unknown) (no date) (unknown) (unknown) BUN/Creatinine Ratio 17.4 (6-22) (units unknown) (unknown) (unknown) (no date) (unknown) (unknown) Baso # (Auto) (0-100 ) /uL (units unknown) (unknown) (unknown) (no date) (unknown) (unknown) Baso # (Auto) 0 (0-100) /uL (units unknown) (unknown) (unknown) (no date) (unknown) (unknown) Baso % (Auto) (0-2) % (units unknown) (unknown) (unknown) (no date) (unknown) (unknown) Baso % (Auto) 1.0 (0-2) % (units unknown) (unknown) (unknown) (no date) (unknown) (unknown) Bedside Urine Bilirubin + 1 (units unknown) (unknown) (unknown) (no date) (unknown) (unknown) Bedside Urine Glucos e Negative (units unknown) (unknown) (unknown) (no date) (unknown) (unknown) Bedside Urine Ketone + 15 (units unknown) (unknown) (unknown) (no date) (unknown) (unknown) Bedside Urine Leukocytes - Negative (units unknown) (unknown) (unknown) (no date) (unknown) (unknown) Bedside Urine Nitrit e - Negative (units unknown) (unknown) (unknown) (no date) (unknown) (unknown) Bedside Urine Occult Blood - Negative (units unknown) (unknown) (unknown) (no date) (unknown) (unknown) Bedside Urine Protei n + 30 (units unknown) (unknown) (unknown) (no date) (unknown) (unknown) Bedside Urine Urobilinogen - Negative (units unknown) (unknown) (unknown) (no date) (unknown) (unknown) Bedside Urine pH 6.0 (units unknown) (unknown) (unknown) (no date) (unknown) (unknown) Blood Pressure 111/6 3 110/61 (units unknown) (unknown) (unknown) (no date) (unknown) (unknown) Blood Pressure 111/70 (units unknown) (unknown) (unknown) (no date) (unknown) (unknown) Blood Pressure 112/65 (units unknown) (unknown) (unknown) (no date) (unknown) (unknown) Blood Pressure 113/5 9 L (units unknown) (unknown) (unknown) (no date) (unknown) (unknown) Blood Pressure 113/71 (units unknown) (unknown) (unknown) (no date) (unknown) (unknown) Blood Pressure 113/7 3 116/75 (units unknown) (unknown) (unknown) (no date) (unknown) (unknown) Blood Pressure 116/5 3 L 124/73 (units unknown) (unknown) (unknown) (no date) (unknown) (unknown) Blood Pressure 117/5 6 L (units unknown) (unknown) (unknown) (no date) (unknown) (unknown) Blood Pressure 118/6 9 116/81 (units unknown) (unknown) (unknown) (no date) (unknown) (unknown) Blood Pressure 119/61 (units unknown) (unknown) (unknown) (no date) (unknown) (unknown) Blood Pressure 120/75 (units unknown) (unknown) (unknown) (no date) (unknown) (unknown) Blood Pressure 120/7 8 163/104 H (units unknown) (unknown) (unknown) (no date) (unknown) (unknown) Blood Pressure 121/63 (units unknown) (unknown) (unknown) (no date) (unknown) (unknown) Blood Pressure 126/9 0 129/66 (units unknown) (unknown) (unknown) (no date) (unknown) (unknown) Blood Pressure 137/6 5 118/80 (units unknown) (unknown) (unknown) (no date) (unknown) (unknown) Blood Pressure 137/8 4 07/31/22 12:30 (units unknown) (unknown) (unknown) (no date) (unknown) (unknown) Blood Pressure 137/84 (units unknown) (unknown) (unknown) (no date) (unknown) (unknown) Blood Pressure 138/79 (units unknown) (unknown) (unknown) (no date) (unknown) (unknown) Blood Pressure 152/8 8 H 134/72 (units unknown) (unknown) (unknown) (no date) (unknown) (unknown) Blood Pressure (units unknown) (unknown) (unknown) (no date) (unknown) (unknown) Calcium (8.4-10.2) mg/dL (units unknown) (unknown) (unknown) (no date) (unknown) (unknown) Calcium 8.7 (8.4-10.2) mg/dL (units unknown) (unknown) (unknown) (no date) (unknown) (unknown) Carbon Dioxide (22-32) mmol/L (units unknown) (unknown) (unknown) (no date) (unknown) (unknown) Carbon Dioxide 24 (22-32) mmol/L (units unknown) (unknown) (unknown) (no date) (unknown) (unknown) Cardio (units unknown) (unknown) (unknown) (no date) (unknown) (unknown) Chief complaint: Toxicology Problem (units unknown) (unknown) (unknown) (no date) (unknown) (unknown) Chloride (98-107) mmol/L (units unknown) (unknown) (unknown) (no date) (unknown) (unknown) Chloride 105 (98-107 ) mmol/L (units unknown) (unknown) (unknown) (no date) (unknown) (unknown) Clinical Impression: (units unknown) (unknown) (unknown) (no date) (unknown) (unknown) Complete Blood Count AUTO DIFF Stat (units unknown) (unknown) (unknown) (no date) (unknown) (unknown) Comprehensive Metabolic Panel Stat (units unknown) (unknown) (unknown) (no date) (unknown) (unknown) Const (units unknown) (unknown) (unknown) (no date) (unknown) (unknown) Continue to take all of your medications as directed. You can and should return (units unknown) (unknown) (unknown) (no date) (unknown) (unknown) Course (units unknown) (unknown) (unknown) (no date) (unknown) (unknown) Creatinine (0.52-1.04) mg/dL (units unknown) (unknown) (unknown) (no date) (unknown) (unknown) Creatinine 0.69 (0.52-1.04) mg/dL (units unknown) (unknown) (unknown) (no date) (unknown) (unknown) : 1990 Acct:[id number] (units unknown) (unknown) (unknown) (no date) (unknown) (unknown) Date of Service: 07/31/22 (units unknown) (unknown) (unknown) (no date) (unknown) (unknown) Departure (units unknown) (unknown) (unknown) (no date) (unknown) (unknown) Discharge Plan (units unknown) (unknown) (unknown) (no date) (unknown) (unknown) Discontinued Medications (units unknown) (unknown) (unknown) (no date) (unknown) (unknown) Documented By: OSCAR (units unknown) (unknown) (unknown) (no date) (unknown) (unknown) Documented By: KB (units unknown) (unknown) (unknown) (no date) (unknown) (unknown) ED Orders (units unknown) (unknown) (unknown) (no date) (unknown) (unknown) ER Physician: Will Benitez D.O. (units unknown) (unknown) (unknown) (no date) (unknown) (unknown) Effort + Inspection: normal respiratory effort (units unknown) (unknown) (unknown) (no date) (unknown) (unknown) Emergency Report (units unknown) (unknown) (unknown) (no date) (unknown) (unknown) Eos # (Auto) (0-450) /uL (units unknown) (unknown) (unknown) (no date) (unknown) (unknown) Eos # (Auto) 100 (0-450) /uL (units unknown) (unknown) (unknown) (no date) (unknown) (unknown) Eos % (Auto) (2-4) % (units unknown) (unknown) (unknown) (no date) (unknown) (unknown) Eos % (Auto) 3.3 (2-4) % (units unknown) (unknown) (unknown) (no date) (unknown) (unknown) Esterase (units unknown) (unknown) (unknown) (no date) (unknown) (unknown) Estimated GFR > 60 (>60) mL/min (units unknown) (unknown) (unknown) (no date) (unknown) (unknown) Estimated GFR (>60) mL/min (units unknown) (unknown) (unknown) (no date) (unknown) (unknown) Ethanol (ETOH) Stat (units unknown) (unknown) (unknown) (no date) (unknown) (unknown) Ethyl Alcohol < 10 ( - 10) mg/dL (units unknown) (unknown) (unknown) (no date) (unknown) (unknown) Ethyl Alcohol ( - 10 ) mg/dL (units unknown) (unknown) (unknown) (no date) (unknown) (unknown) Exam (units unknown) (unknown) (unknown) (no date) (unknown) (unknown) Extrem (units unknown) (unknown) (unknown) (no date) (unknown) (unknown) Family History (units unknown) (unknown) (unknown) (no date) (unknown) (unknown) Family/Other Alcoholism (units unknown) (unknown) (unknown) (no date) (unknown) (unknown) Family/Other Diabete s mellitus (units unknown) (unknown) (unknown) (no date) (unknown) (unknown) Father Alcoholism (units unknown) (unknown) (unknown) (no date) (unknown) (unknown) Tonia Schneider MD [Primary Care Provider] (units unknown) (unknown) (unknown) (no date) (unknown) (unknown) General (units unknown) (unknown) (unknown) (no date) (unknown) (unknown) General: cooperative (units unknown) (unknown) (unknown) (no date) (unknown) (unknown) General: no rashes o r lesions noted (units unknown) (unknown) (unknown) (no date) (unknown) (unknown) General: normal to inspection (units unknown) (unknown) (unknown) (no date) (unknown) (unknown) Globulin (1.7-4.1) g/dL (units unknown) (unknown) (unknown) (no date) (unknown) (unknown) Globulin 2.8 (1.7-4.1) g/dL (units unknown) (unknown) (unknown) (no date) (unknown) (unknown) Glucose (70-100) mg/dL (units unknown) (unknown) (unknown) (no date) (unknown) (unknown) Glucose 102 H (70-100) mg/dL (units unknown) (unknown) (unknown) (no date) (unknown) (unknown) Grandfather Smoker (units unknown) (unknown) (unknown) (no date) (unknown) (unknown) Grandfather Unknown whether patient has any health problems (units unknown) (unknown) (unknown) (no date) (unknown) (unknown) Grandmother Diabetes mellitus (units unknown) (unknown) (unknown) (no date) (unknown) (unknown) Grandmother Hypoglycemia (units unknown) (unknown) (unknown) (no date) (unknown) (unknown) H/O dilation and curettage (-12/14/16) (units unknown) (unknown) (unknown) (no date) (unknown) (unknown) H/O wisdom tooth extraction () (units unknown) (unknown) (unknown) (no date) (unknown) (unknown) HENMT (units unknown) (unknown) (unknown) (no date) (unknown) (unknown) HPI - General Adult (units unknown) (unknown) (unknown) (no date) (unknown) (unknown) HPI narrative: (units unknown) (unknown) (unknown) (no date) (unknown) (unknown) Hct (36-46) % (units unknown) (unknown) (unknown) (no date) (unknown) (unknown) Hct 32.3 L (36-46) % (units unknown) (unknown) (unknown) (no date) (unknown) (unknown) Head: normal to inspection and normocephalic (units unknown) (unknown) (unknown) (no date) (unknown) (unknown) Hgb (12.0-16.0) g/dL (units unknown) (unknown) (unknown) (no date) (unknown) (unknown) Hgb 10.6 L (12.0-16.0) g/dL (units unknown) (unknown) (unknown) (no date) (unknown) (unknown) History of Present Illness (units unknown) (unknown) (unknown) (no date) (unknown) (unknown) Home Medications (units unknown) (unknown) (unknown) (no date) (unknown) (unknown) Ictotest Urine Stat (units unknown) (unknown) (unknown) (no date) (unknown) (unknown) Initial Vital Signs (units unknown) (unknown) (unknown) (no date) (unknown) (unknown) Initial Vital Signs: (units unknown) (unknown) (unknown) (no date) (unknown) (unknown) Insomnia (units unknown) (unknown) (unknown) (no date) (unknown) (unknown) Instructions: DI for Alcohol Use Disorder (units unknown) (unknown) (unknown) (no date) (unknown) (unknown) Is anxious appearing (units unknown) (unknown) (unknown) (no date) (unknown) (unknown) [address] [address] (units unknown) (unknown) (unknown) (no date) (unknown) (unknown) Lab Data (units unknown) (unknown) (unknown) (no date) (unknown) (unknown) Lab Results (units unknown) (unknown) (unknown) (no date) (unknown) (unknown) Lab results reviewed : Yes I reviewed the patient's lab results. (units unknown) (unknown) (unknown) (no date) (unknown) (unknown) Labs: (units unknown) (unknown) (unknown) (no date) (unknown) (unknown) Last Admin: 07/31/22 12:59 Dose: 1 mg (units unknown) (unknown) (unknown) (no date) (unknown) (unknown) Last Admin: 07/31/22 12:59 Dose: 260 mg (units unknown) (unknown) (unknown) (no date) (unknown) (unknown) Last Admin: 07/31/22 13:00 Dose: 1 tab (units unknown) (unknown) (unknown) (no date) (unknown) (unknown) Last Admin: 07/31/22 17:20 Dose: 1 mg (units unknown) (unknown) (unknown) (no date) (unknown) (unknown) Last Infusion: 07/31/22 13:23 Dose: 0 mls/hr (units unknown) (unknown) (unknown) (no date) (unknown) (unknown) Lipase (23-300) U/L (units unknown) (unknown) (unknown) (no date) (unknown) (unknown) Lipase 366 H (23-300 ) U/L (units unknown) (unknown) (unknown) (no date) (unknown) (unknown) Lipase Stat (units unknown) (unknown) (unknown) (no date) (unknown) (unknown) Lorazepam (Lorazepam 2 Mg/Ml Inj) 1 mg IV NOW ONE (units unknown) (unknown) (unknown) (no date) (unknown) (unknown) Lymph # (Auto) (2990-4841) /uL (units unknown) (unknown) (unknown) (no date) (unknown) (unknown) Lymph # (Auto) 1200 (0951-2768) /uL (units unknown) (unknown) (unknown) (no date) (unknown) (unknown) Lymph % (Auto) (25-40) % (units unknown) (unknown) (unknown) (no date) (unknown) (unknown) Lymph % (Auto) 27.8 (25-40) % (units unknown) (unknown) (unknown) (no date) (unknown) (unknown) MCH (26-34) PG (units unknown) (unknown) (unknown) (no date) (unknown) (unknown) MCH 26.4 (26-34) PG (units unknown) (unknown) (unknown) (no date) (unknown) (unknown) MCHC (30-36) % (units unknown) (unknown) (unknown) (no date) (unknown) (unknown) MCHC 32.8 (30-36) % (units unknown) (unknown) (unknown) (no date) (unknown) (unknown) MCV (80-100) fL (units unknown) (unknown) (unknown) (no date) (unknown) (unknown) MCV 80.4 (80-100) fL (units unknown) (unknown) (unknown) (no date) (unknown) (unknown) MDM Narrative (units unknown) (unknown) (unknown) (no date) (unknown) (unknown) Medical Decision Making (units unknown) (unknown) (unknown) (no date) (unknown) (unknown) Medical History (units unknown) (unknown) (unknown) (no date) (unknown) (unknown) Medical Records (units unknown) (unknown) (unknown) (no date) (unknown) (unknown) Medical decision making narrative: (units unknown) (unknown) (unknown) (no date) (unknown) (unknown) Medical records reviewed: Yes I reviewed the patient's medical records. (units unknown) (unknown) (unknown) (no date) (unknown) (unknown) Medication Instructions Recorded Confirmed (units unknown) (unknown) (unknown) (no date) (unknown) (unknown) Medication Instructions Recorded (units unknown) (unknown) (unknown) (no date) (unknown) (unknown) Menometrorrhagia (units unknown) (unknown) (unknown) (no date) (unknown) (unknown) Mode of arrival: Ambulatory (units unknown) (unknown) (unknown) (no date) (unknown) (unknown) [place] # (Auto) (0-900 ) /uL (units unknown) (unknown) (unknown) (no date) (unknown) (unknown) [place] # (Auto) 300 (0-900) /uL (units unknown) (unknown) (unknown) (no date) (unknown) (unknown) [place] % (Auto) (3-14) % (units unknown) (unknown) (unknown) (no date) (unknown) (unknown) [place] % (Auto) 7.9 (3-14) % (units unknown) (unknown) (unknown) (no date) (unknown) (unknown) Mother Diabetes mellitus (units unknown) (unknown) (unknown) (no date) (unknown) (unknown) Multivitamins (Multivitamin 1 Tablet) 1 tab PO DAILY SANDY (units unknown) (unknown) (unknown) (no date) (unknown) (unknown) Neuro (units unknown) (unknown) (unknown) (no date) (unknown) (unknown) Neut # (Auto) (3870-0410) /uL (units unknown) (unknown) (unknown) (no date) (unknown) (unknown) Neut # (Auto) 2600 (2738-2896) /uL (units unknown) (unknown) (unknown) (no date) (unknown) (unknown) Neut % (Auto) (50-75 ) % (units unknown) (unknown) (unknown) (no date) (unknown) (unknown) Neut % (Auto) 60.0 (50-75) % (units unknown) (unknown) (unknown) (no date) (unknown) (unknown) No Action (units unknown) (unknown) (unknown) (no date) (unknown) (unknown) Obesity (units unknown) (unknown) (unknown) (no date) (unknown) (unknown) Ordered: (units unknown) (unknown) (unknown) (no date) (unknown) (unknown) Orders (units unknown) (unknown) (unknown) (no date) (unknown) (unknown) Other: (units unknown) (unknown) (unknown) (no date) (unknown) (unknown) Overweight (units unknown) (unknown) (unknown) (no date) (unknown) (unknown) Oxygen Delivery Method Room Air 07/31/22 12:30 (units unknown) (unknown) (unknown) (no date) (unknown) (unknown) Oxygen Delivery Method Room Air (units unknown) (unknown) (unknown) (no date) (unknown) (unknown) Oxygen Delivery Method (units unknown) (unknown) (unknown) (no date) (unknown) (unknown) Patient Disposition: Home (units unknown) (unknown) (unknown) (no date) (unknown) (unknown) Patient History (units unknown) (unknown) (unknown) (no date) (unknown) (unknown) Patient is a 31-year-old female. Has a history of alcohol use disorder. Has (units unknown) (unknown) (unknown) (no date) (unknown) (unknown) Patient is alert oriented. Has tremors. No seizure activity. Moves all 4 (units unknown) (unknown) (unknown) (no date) (unknown) (unknown) Patient received phenobarbital and also multiple doses of Ativan. She states (units unknown) (unknown) (unknown) (no date) (unknown) (unknown) Patient states that her last drink was on Saturday which would have been 4 days (units unknown) (unknown) (unknown) (no date) (unknown) (unknown) Patient: Sarah Connors MR#: M (units unknown) (unknown) (unknown) (no date) (unknown) (unknown) Phenobarbital (Phenobarbital 65 Mg/Ml Vial) 260 mg IV NOW ONE (units unknown) (unknown) (unknown) (no date) (unknown) (unknown) Plt Count (150-400) X103/uL (units unknown) (unknown) (unknown) (no date) (unknown) (unknown) Plt Count 229 (150-400) X103/uL (units unknown) (unknown) (unknown) (no date) (unknown) (unknown) Point of Care Testing (units unknown) (unknown) (unknown) (no date) (unknown) (unknown) Point of care testing: (units unknown) (unknown) (unknown) (no date) (unknown) (unknown) Potassium (3.4-5.1) mmol/L (units unknown) (unknown) (unknown) (no date) (unknown) (unknown) Potassium 3.8 (3.4-5.1) mmol/L (units unknown) (unknown) (unknown) (no date) (unknown) (unknown) Test Results Negative (units unknown) (unknown) (unknown) (no date) (unknown) (unknown) Test Serum,Qual Stat (units unknown) (unknown) (unknown) (no date) (unknown) (unknown) Prescriptions: (units unknown) (unknown) (unknown) (no date) (unknown) (unknown) Previous Rx's (units unknown) (unknown) (unknown) (no date) (unknown) (unknown) Psych (units unknown) (unknown) (unknown) (no date) (unknown) (unknown) Pulse Oximetry 100 07/31/22 12:30 (units unknown) (unknown) (unknown) (no date) (unknown) (unknown) Pulse Oximetry 100 100 99 (units unknown) (unknown) (unknown) (no date) (unknown) (unknown) Pulse Oximetry 100 9 3 100 (units unknown) (unknown) (unknown) (no date) (unknown) (unknown) Pulse Oximetry 100 94 (units unknown) (unknown) (unknown) (no date) (unknown) (unknown) Pulse Oximetry 100 99 (units unknown) (unknown) (unknown) (no date) (unknown) (unknown) Pulse Oximetry 100 (units unknown) (unknown) (unknown) (no date) (unknown) (unknown) Pulse Oximetry 94 (units unknown) (unknown) (unknown) (no date) (unknown) (unknown) Pulse Oximetry 96 97 (units unknown) (unknown) (unknown) (no date) (unknown) (unknown) Pulse Oximetry 96 (units unknown) (unknown) (unknown) (no date) (unknown) (unknown) Pulse Oximetry 98 99 (units unknown) (unknown) (unknown) (no date) (unknown) (unknown) Pulse Oximetry 99 10 0 100 (units unknown) (unknown) (unknown) (no date) (unknown) (unknown) Pulse Oximetry 99 98 (units unknown) (unknown) (unknown) (no date) (unknown) (unknown) Pulse Oximetry 99 99 (units unknown) (unknown) (unknown) (no date) (unknown) (unknown) Pulse Oximetry 99 (units unknown) (unknown) (unknown) (no date) (unknown) (unknown) Pulse Oximetry (units unknown) (unknown) (unknown) (no date) (unknown) (unknown) Pulse Rate 62 64 (units unknown) (unknown) (unknown) (no date) (unknown) (unknown) Pulse Rate 62 (units unknown) (unknown) (unknown) (no date) (unknown) (unknown) Pulse Rate 63 60 (units unknown) (unknown) (unknown) (no date) (unknown) (unknown) Pulse Rate 63 65 (units unknown) (unknown) (unknown) (no date) (unknown) (unknown) Pulse Rate 64 62 (units unknown) (unknown) (unknown) (no date) (unknown) (unknown) Pulse Rate 64 73 (units unknown) (unknown) (unknown) (no date) (unknown) (unknown) Pulse Rate 64 (units unknown) (unknown) (unknown) (no date) (unknown) (unknown) Pulse Rate 65 66 66 (units unknown) (unknown) (unknown) (no date) (unknown) (unknown) Pulse Rate 65 75 (units unknown) (unknown) (unknown) (no date) (unknown) (unknown) Pulse Rate 66 66 67 (units unknown) (unknown) (unknown) (no date) (unknown) (unknown) Pulse Rate 66 (units unknown) (unknown) (unknown) (no date) (unknown) (unknown) Pulse Rate 67 65 (units unknown) (unknown) (unknown) (no date) (unknown) (unknown) Pulse Rate 67 72 (units unknown) (unknown) (unknown) (no date) (unknown) (unknown) Pulse Rate 68 07/31/22 12:30 (units unknown) (unknown) (unknown) (no date) (unknown) (unknown) Pulse Rate 68 66 66 (units unknown) (unknown) (unknown) (no date) (unknown) (unknown) Pulse Rate 69 (units unknown) (unknown) (unknown) (no date) (unknown) (unknown) Pulse Rate 71 (units unknown) (unknown) (unknown) (no date) (unknown) (unknown) Pulse Rate 72 (units unknown) (unknown) (unknown) (no date) (unknown) (unknown) RBC (4.0-5.2) X106/uL (units unknown) (unknown) (unknown) (no date) (unknown) (unknown) RBC 4.02 (4.0-5.2) X106/uL (units unknown) (unknown) (unknown) (no date) (unknown) (unknown) RDW (11.6-14.8) % (units unknown) (unknown) (unknown) (no date) (unknown) (unknown) RDW 19.5 H (11.6-14.8) % (units unknown) (unknown) (unknown) (no date) (unknown) (unknown) ROS Unobtainable: Al l systems reviewed + are unremarkable except as noted in HPI (units unknown) (unknown) (unknown) (no date) (unknown) (unknown) Rate: regular rate (units unknown) (unknown) (unknown) (no date) (unknown) (unknown) Referrals: (units unknown) (unknown) (unknown) (no date) (unknown) (unknown) Related Data (units unknown) (unknown) (unknown) (no date) (unknown) (unknown) Resp (units unknown) (unknown) (unknown) (no date) (unknown) (unknown) Respiratory Rate 17 07/31/22 12:30 (units unknown) (unknown) (unknown) (no date) (unknown) (unknown) Respiratory Rate 17 30 H 29 H (units unknown) (unknown) (unknown) (no date) (unknown) (unknown) Respiratory Rate 20 18 (units unknown) (unknown) (unknown) (no date) (unknown) (unknown) Respiratory Rate 20 32 H 21 (units unknown) (unknown) (unknown) (no date) (unknown) (unknown) Respiratory Rate 21 20 (units unknown) (unknown) (unknown) (no date) (unknown) (unknown) Respiratory Rate 22 (units unknown) (unknown) (unknown) (no date) (unknown) (unknown) Respiratory Rate 23 18 (units unknown) (unknown) (unknown) (no date) (unknown) (unknown) Respiratory Rate 23 24 (units unknown) (unknown) (unknown) (no date) (unknown) (unknown) Respiratory Rate 23 (units unknown) (unknown) (unknown) (no date) (unknown) (unknown) Respiratory Rate 25 H (units unknown) (unknown) (unknown) (no date) (unknown) (unknown) Respiratory Rate 26 H 17 (units unknown) (unknown) (unknown) (no date) (unknown) (unknown) Respiratory Rate 26 H (units unknown) (unknown) (unknown) (no date) (unknown) (unknown) Respiratory Rate 27 H (units unknown) (unknown) (unknown) (no date) (unknown) (unknown) Respiratory Rate 29 H 36 H 34 H (units unknown) (unknown) (unknown) (no date) (unknown) (unknown) Respiratory Rate 29 H 38 H (units unknown) (unknown) (unknown) (no date) (unknown) (unknown) Respiratory Rate 31 H (units unknown) (unknown) (unknown) (no date) (unknown) (unknown) Respiratory Rate 32 H (units unknown) (unknown) (unknown) (no date) (unknown) (unknown) Respiratory Rate 33 H (units unknown) (unknown) (unknown) (no date) (unknown) (unknown) Respiratory Rate 34 H (units unknown) (unknown) (unknown) (no date) (unknown) (unknown) Review of Systems (units unknown) (unknown) (unknown) (no date) (unknown) (unknown) Rhythm: regular rhythm (units unknown) (unknown) (unknown) (no date) (unknown) (unknown) S/P myringotomy with insertion of tube (units unknown) (unknown) (unknown) (no date) (unknown) (unknown) (spontaneous vaginal delivery) (-09/05/18) (units unknown) (unknown) (unknown) (no date) (unknown) (unknown) Serum , Kiko l (Negative) (units unknown) (unknown) (unknown) (no date) (unknown) (unknown) Serum , Kiko l Negative (Negative) (units unknown) (unknown) (unknown) (no date) (unknown) (unknown) Signed By: (units unknown) (unknown) (unknown) (no date) (unknown) (unknown) Skin (units unknown) (unknown) (unknown) (no date) (unknown) (unknown) Smoker (units unknown) (unknown) (unknown) (no date) (unknown) (unknown) Smoking Status: Former smoker (units unknown) (unknown) (unknown) (no date) (unknown) (unknown) Social History (units unknown) (unknown) (unknown) (no date) (unknown) (unknown) Sodium (137-145) mmol/L (units unknown) (unknown) (unknown) (no date) (unknown) (unknown) Sodium 137 (137-145) mmol/L (units unknown) (unknown) (unknown) (no date) (unknown) (unknown) Source: patient (units unknown) (unknown) (unknown) (no date) (unknown) (unknown) Stand Alone Forms: Patient Portal/API (units unknown) (unknown) (unknown) (no date) (unknown) (unknown) Stated complaint: SOB, tremors (units unknown) (unknown) (unknown) (no date) (unknown) (unknown) Stop: 07/31/22 12:36 (units unknown) (unknown) (unknown) (no date) (unknown) (unknown) Stop: 07/31/22 15:18 (units unknown) (unknown) (unknown) (no date) (unknown) (unknown) Substance Use Type: does not use (units unknown) (unknown) (unknown) (no date) (unknown) (unknown) Surgical History (units unknown) (unknown) (unknown) (no date) (unknown) (unknown) Temperature 97.7 F 07/31/22 12:30 (units unknown) (unknown) (unknown) (no date) (unknown) (unknown) Temperature 97.7 F (units unknown) (unknown) (unknown) (no date) (unknown) (unknown) Temperature (units unknown) (unknown) (unknown) (no date) (unknown) (unknown) Thiamine HCl 200 mg/ Sodium (Chloride) 102 mls @ 408 mls/hr IV DAILY SANDY (units unknown) (unknown) (unknown) (no date) (unknown) (unknown) Time Seen by Provider: 07/31/22 12:35 (units unknown) (unknown) (unknown) (no date) (unknown) (unknown) Total Bilirubin (0.2-1.3) mg/dL (units unknown) (unknown) (unknown) (no date) (unknown) (unknown) Total Bilirubin 0.8 (0.2-1.3) mg/dL (units unknown) (unknown) (unknown) (no date) (unknown) (unknown) Total Protein (6.3-8.2) g/dL (units unknown) (unknown) (unknown) (no date) (unknown) (unknown) Total Protein 7.2 (6.3-8.2) g/dL (units unknown) (unknown) (unknown) (no date) (unknown) (unknown) U Benzodiazepines Scrn (Negative) (units unknown) (unknown) (unknown) (no date) (unknown) (unknown) U Benzodiazepines Scrn Positive H (Negative) (units unknown) (unknown) (unknown) (no date) (unknown) (unknown) U Marijuana (THC) Screen (Negative) (units unknown) (unknown) (unknown) (no date) (unknown) (unknown) U Marijuana (THC) Screen Negative (Negative) (units unknown) (unknown) (unknown) (no date) (unknown) (unknown) U Methamphetamines Scrn (Negative) (units unknown) (unknown) (unknown) (no date) (unknown) (unknown) U Methamphetamines Scrn Negative (Negative) (units unknown) (unknown) (unknown) (no date) (unknown) (unknown) U Opiates 300ng/mL cut (Negative) (units unknown) (unknown) (unknown) (no date) (unknown) (unknown) U Opiates 300ng/mL cut Negative (Negative) (units unknown) (unknown) (unknown) (no date) (unknown) (unknown) U Tricyclic Antidepress (Negative) (units unknown) (unknown) (unknown) (no date) (unknown) (unknown) U Tricyclic Antidepress Positive H (Negative) (units unknown) (unknown) (unknown) (no date) (unknown) (unknown) Ur Amphetamines Screen (Negative) (units unknown) (unknown) (unknown) (no date) (unknown) (unknown) Ur Amphetamines Screen Negative (Negative) (units unknown) (unknown) (unknown) (no date) (unknown) (unknown) Ur Barbiturates Screen (Negative) (units unknown) (unknown) (unknown) (no date) (unknown) (unknown) Ur Barbiturates Screen Positive H (Negative) (units unknown) (unknown) (unknown) (no date) (unknown) (unknown) Ur Bilirubin Confirm (Negative) (units unknown) (unknown) (unknown) (no date) (unknown) (unknown) Ur Bilirubin Confirm Negative (Negative) (units unknown) (unknown) (unknown) (no date) (unknown) (unknown) Ur Culture Indicated ? Cult not indicated (units unknown) (unknown) (unknown) (no date) (unknown) (unknown) Ur Culture Indicated? (units unknown) (unknown) (unknown) (no date) (unknown) (unknown) Ur Leukocyte [place] e (NEGATIVE) (units unknown) (unknown) (unknown) (no date) (unknown) (unknown) Ur Leukocyte [place]steras e Negative (NEGATIVE) (units unknown) (unknown) (unknown) (no date) (unknown) (unknown) Ur MDMA Scrn (Ecstasy) (Negative) (units unknown) (unknown) (unknown) (no date) (unknown) (unknown) Ur MDMA Scrn (Ecstasy) Negative (Negative) (units unknown) (unknown) (unknown) (no date) (unknown) (unknown) Ur Oxycodone Screen (Negative) (units unknown) (unknown) (unknown) (no date) (unknown) (unknown) Ur Oxycodone Screen Negative (Negative) (units unknown) (unknown) (unknown) (no date) (unknown) (unknown) Ur Phencyclidine Scr n (Negative) (units unknown) (unknown) (unknown) (no date) (unknown) (unknown) Ur Phencyclidine Scr n Negative (Negative) (units unknown) (unknown) (unknown) (no date) (unknown) (unknown) Ur Specific [place] >=1.030 H (1.000-1.035) (units unknown) (unknown) (unknown) (no date) (unknown) (unknown) Ur Specific [place] (1.000-1.035) (units unknown) (unknown) (unknown) (no date) (unknown) (unknown) Ur Squamous Epith Cells (0-5/HPF) (units unknown) (unknown) (unknown) (no date) (unknown) (unknown) Ur Squamous Epith Cells 5-10 /hpf H (0-5/HPF) (units unknown) (unknown) (unknown) (no date) (unknown) (unknown) Urinalysis and Microscopic Stat (units unknown) (unknown) (unknown) (no date) (unknown) (unknown) Urine Appearance Sl cloudy (units unknown) (unknown) (unknown) (no date) (unknown) (unknown) Urine Appearance (units unknown) (unknown) (unknown) (no date) (unknown) (unknown) Urine Bacteria (None) (units unknown) (unknown) (unknown) (no date) (unknown) (unknown) Urine Bacteria None seen (None) (units unknown) (unknown) (unknown) (no date) (unknown) (unknown) Urine Bilirubin (NEGATIVE) (units unknown) (unknown) (unknown) (no date) (unknown) (unknown) Urine Bilirubin 1+ H D (NEGATIVE) (units unknown) (unknown) (unknown) (no date) (unknown) (unknown) Urine Cocaine Screen (Negative) (units unknown) (unknown) (unknown) (no date) (unknown) (unknown) Urine Cocaine Screen Negative (Negative) (units unknown) (unknown) (unknown) (no date) (unknown) (unknown) Urine Color Yellow (units unknown) (unknown) (unknown) (no date) (unknown) (unknown) Urine Color (units unknown) (unknown) (unknown) (no date) (unknown) (unknown) Urine Dip (units unknown) (unknown) (unknown) (no date) (unknown) (unknown) Urine Drug Screen, Rapid Stat (units unknown) (unknown) (unknown) (no date) (unknown) (unknown) Urine Glucose (UA) (Negative) g/dL (units unknown) (unknown) (unknown) (no date) (unknown) (unknown) Urine Glucose (UA) Negative (Negative) g/dL (units unknown) (unknown) (unknown) (no date) (unknown) (unknown) Urine Ketones (NEGATIVE) (units unknown) (unknown) (unknown) (no date) (unknown) (unknown) Urine Ketones 1+ H (NEGATIVE) (units unknown) (unknown) (unknown) (no date) (unknown) (unknown) Urine Methadone Screen (Negative) (units unknown) (unknown) (unknown) (no date) (unknown) (unknown) Urine Methadone Screen Negative (Negative) (units unknown) (unknown) (unknown) (no date) (unknown) (unknown) Urine Nitrate (Negative) (units unknown) (unknown) (unknown) (no date) (unknown) (unknown) Urine Nitrate Negative (Negative) (units unknown) (unknown) (unknown) (no date) (unknown) (unknown) Urine Occult Blood (Negative) (units unknown) (unknown) (unknown) (no date) (unknown) (unknown) Urine Occult Blood Negative (Negative) (units unknown) (unknown) (unknown) (no date) (unknown) (unknown) Urine Protein (Negative) (units unknown) (unknown) (unknown) (no date) (unknown) (unknown) Urine Protein Trace H (Negative) (units unknown) (unknown) (unknown) (no date) (unknown) (unknown) Urine RBC (0-5/HPF) (units unknown) (unknown) (unknown) (no date) (unknown) (unknown) Urine RBC None seen (0-5/HPF) (units unknown) (unknown) (unknown) (no date) (unknown) (unknown) Urine Specific [place] 1.030 (units unknown) (unknown) (unknown) (no date) (unknown) (unknown) Urine Urobilinogen (0.2) E.U./dL (units unknown) (unknown) (unknown) (no date) (unknown) (unknown) Urine Urobilinogen 0.2 (0.2) E.U./dL (units unknown) (unknown) (unknown) (no date) (unknown) (unknown) Urine WBC (0-5/HPF) (units unknown) (unknown) (unknown) (no date) (unknown) (unknown) Urine WBC None seen (0-5/HPF) (units unknown) (unknown) (unknown) (no date) (unknown) (unknown) Urine pH (4.5-8.0) (units unknown) (unknown) (unknown) (no date) (unknown) (unknown) Urine pH 6.0 (4.5-8.0) (units unknown) (unknown) (unknown) (no date) (unknown) (unknown) Vital Signs - 8 hr (units unknown) (unknown) (unknown) (no date) (unknown) (unknown) Vital Signs (units unknown) (unknown) (unknown) (no date) (unknown) (unknown) Vital signs: (units unknown) (unknown) (unknown) (no date) (unknown) (unknown) WBC (4.5-11.0) X103/uL (units unknown) (unknown) (unknown) (no date) (unknown) (unknown) WBC 4.4 L (4.5-11.0) X103/uL (units unknown) (unknown) (unknown) (no date) (unknown) (unknown) [Embedded Image Not Available] (units unknown) (unknown) (unknown) (no date) (unknown) (unknown) [METOCLOPRAMIDE] (units unknown) (unknown) (unknown) (no date) (unknown) (unknown) ago. Today she is alert oriented x3. Is not clinically intoxicated. Her (units unknown) (unknown) (unknown) (no date) (unknown) (unknown) alcohol intake frequency: 3 or more drinks per day (units unknown) (unknown) (unknown) (no date) (unknown) (unknown) alcohol intake: former (units unknown) (unknown) (unknown) (no date) (unknown) (unknown) alcohol level is 0. In my opinion does have the capacity to make decisions. (units unknown) (unknown) (unknown) (no date) (unknown) (unknown) and below (units unknown) (unknown) (unknown) (no date) (unknown) (unknown) current occupational exposures/hazards: Yes (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 with Pandemic ) (units unknown) (unknown) (unknown) (no date) (unknown) (unknown) department for alcohol withdrawal. She states that after she was discharged she (units unknown) (unknown) (unknown) (no date) (unknown) (unknown) discharged home. I d o recommend that you abstain from drinking alcohol. (units unknown) (unknown) (unknown) (no date) (unknown) (unknown) does not want detox/rehab. We discussed admitting her to the hospital for (units unknown) (unknown) (unknown) (no date) (unknown) (unknown) drink was on Saturday. She states that since she is stopped drinking she has had (units unknown) (unknown) (unknown) (no date) (unknown) (unknown) education level: college (units unknown) (unknown) (unknown) (no date) (unknown) (unknown) elevated. Had a long discussion with her regarding options. She states she (units unknown) (unknown) (unknown) (no date) (unknown) (unknown) extremities. Is ambulatory. 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 She states she does (units unknown) (unknown) (unknown) (no date) (unknown) (unknown) hospital for further control of your alcohol withdrawal you opted to be (units unknown) (unknown) (unknown) (no date) (unknown) (unknown) household members: children (units unknown) (unknown) (unknown) (no date) (unknown) (unknown) hydrocodone [HYDROCODONE] AdvReac Unknown VOMITING Verified 07/12/22 16:18 (units unknown) (unknown) (unknown) (no date) (unknown) (unknown) hydroxyzine HCl 50 m g tablet 50 mg PO DAILY 07/13/22 07/13/22 (units unknown) (unknown) (unknown) (no date) (unknown) (unknown) hydroxyzine HCl 50 m g tablet (units unknown) (unknown) (unknown) (no date) (unknown) (unknown) marital status: (units unknown) (unknown) (unknown) (no date) (unknown) (unknown) mcg tablet (Tab-A-Kael) (units unknown) (unknown) (unknown) (no date) (unknown) (unknown) metoclopramide Allergy Mild RASH/HIVES Verified 07/12/22 16:18 (units unknown) (unknown) (unknown) (no date) (unknown) (unknown) mg tablet (units unknown) (unknown) (unknown) (no date) (unknown) (unknown) multivitamin with folic acid 400 1 tab PO DAILY #30 tabs 07/14/22 (units unknown) (unknown) (unknown) (no date) (unknown) (unknown) multivitamin with folic acid [Tab-A-Kael] 400 mcg Tablet (units unknown) (unknown) (unknown) (no date) (unknown) (unknown) not want to be admitted to the hospital. She states she is feeling better and (units unknown) (unknown) (unknown) (no date) (unknown) (unknown) number of children: 1 (units unknown) (unknown) (unknown) (no date) (unknown) (unknown) occupational status: employed (units unknown) (unknown) (unknown) (no date) (unknown) (unknown) pantoprazole 40 mg Tablet,Delayed Release (Dr/Ec) (units unknown) (unknown) (unknown) (no date) (unknown) (unknown) pantoprazole 40 mg tablet,delayed 40 mg PO 0700 #30 tabs 07/14/22 (units unknown) (unknown) (unknown) (no date) (unknown) (unknown) past. At the beginning of the month and an extended stay here in the emergency (units unknown) (unknown) (unknown) (no date) (unknown) (unknown) precautions. She expressed understanding and agreement. (units unknown) (unknown) (unknown) (no date) (unknown) (unknown) quetiapine 300 mg tablet 300 mg PO DAILY 07/13/22 07/13/22 (units unknown) (unknown) (unknown) (no date) (unknown) (unknown) quetiapine 300 mg tablet (units unknown) (unknown) (unknown) (no date) (unknown) (unknown) release (units unknown) (unknown) (unknown) (no date) (unknown) (unknown) second hand exposure : No (growing up as a child - not currently) (units unknown) (unknown) (unknown) (no date) (unknown) (unknown) shaking and nausea and shortness of breath and tremors and generally not feeling (units unknown) (unknown) (unknown) (no date) (unknown) (unknown) she feels much arielle r although she is still shaking in her CIWA score is still (units unknown) (unknown) (unknown) (no date) (unknown) (unknown) special renee needs: No (units unknown) (unknown) (unknown) (no date) (unknown) (unknown) substance use type: does not use (units unknown) (unknown) (unknown) (no date) (unknown) (unknown) thiamine mononitrate (vit B1) 100 100 mg PO DAILY #30 tabs 07/14/22 (units unknown) (unknown) (unknown) (no date) (unknown) (unknown) thiamine mononitrate (vit B1) 100 mg Tablet (units unknown) (unknown) (unknown) (no date) (unknown) (unknown) this and still would like to be discharged. Patient was given strict return (units unknown) (unknown) (unknown) (no date) (unknown) (unknown) to the emergency department at any point for new or worsening symptoms. (units unknown) (unknown) (unknown) (no date) (unknown) (unknown) very well. No seizure-like activity. She denies any other ingestions. (units unknown) (unknown) (unknown) (no date) (unknown) (unknown) went back to drinkin g and went on a ?[place] ?this was a couple days. Her last (units unknown) (unknown) (unknown) (no date) (unknown) (unknown) which could potentially be life-threatening. She expressed understanding of (units unknown) (unknown) (unknown) (no date) (unknown) (unknown) withdrawn from alcohol in the past. She states she is had a seizure in the (units unknown) (unknown) (unknown) (no date) (unknown) (unknown) would like to be home. Did discuss the risks of going home to include seizures (units unknown) (unknown) Result panel [id number] (unknown) (no date) (unknown) (unknown) (no value) (units unknown) (unknown) (unknown) (no date) (unknown) (unknown) 08/01/22 (units unknown) (unknown) (unknown) (no date) (unknown) (unknown) [address] [place] [address] (units unknown) (unknown) (unknown) (no date) (unknown) (unknown) Accession Number: [id number] (units unknown) (unknown) (unknown) (no date) (unknown) (unknown) Age/Sex: 31 / F Date of Service: (units unknown) (unknown) (unknown) (no date) (unknown) (unknown) [place] [address] (units unknown) (unknown) (unknown) (no date) (unknown) (unknown) Approved by: Esvin Hubbard M.D. on 08/01/2022 at 7:06 (units unknown) (unknown) (unknown) (no date) (unknown) (unknown) Brain: No midline shift. No intracranial masses or hemorrhage. Zhang-white (units unknown) (unknown) (unknown) (no date) (unknown) (unknown) COMPARISON: None. (units unknown) (unknown) (unknown) (no date) (unknown) (unknown) CSF spaces: Basal cisterns are patent. No extra-axial fluid collections. (units unknown) (unknown) (unknown) (no date) (unknown) (unknown) CT Scan Report (units unknown) (unknown) (unknown) (no date) (unknown) (unknown) : 1990 Acct:[id number] (units unknown) (unknown) (unknown) (no date) (unknown) (unknown) Dictated by: Esvin Hubbard M.D. on 08/01/2022 at 7:06 (units unknown) (unknown) (unknown) (no date) (unknown) (unknown) FINDINGS: (units unknown) (unknown) (unknown) (no date) (unknown) (unknown) IMPRESSION: CT head without acute intracranial abnormalities. No mass or mass (units unknown) (unknown) (unknown) (no date) (unknown) (unknown) INDICATIONS: altered mental status (units unknown) (unknown) (unknown) (no date) (unknown) (unknown) Image quality: Excellent. (units unknown) (unknown) (unknown) (no date) (unknown) (unknown) [facility] (units unknown) (unknown) (unknown) (no date) (unknown) (unknown) Loc: ICU 231-1 (units unknown) (unknown) (unknown) (no date) (unknown) (unknown) [id number] (units unknown) (unknown) (unknown) (no date) (unknown) (unknown) No significant discrepancy with the mini shifter radiology preliminary report. (units unknown) (unknown) (unknown) (no date) (unknown) (unknown) Noncontrast 4.5 mm thick angled axial sections acquired from the foramen magnum (units unknown) (unknown) (unknown) (no date) (unknown) (unknown) Ordering Provider: Reinaldo Arthur D.O. (units unknown) (unknown) (unknown) (no date) (unknown) (unknown) PROCEDURE: CT HEAD/BRAIN WO CON (units unknown) (unknown) (unknown) (no date) (unknown) (unknown) Patient: Sarah Connors MR#: (units unknown) (unknown) (unknown) (no date) (unknown) (unknown) Procedure: CT head/brain wo con (units unknown) (unknown) (unknown) (no date) (unknown) (unknown) Signed (units unknown) (unknown) (unknown) (no date) (unknown) (unknown) Sinuses: Visualized sinuses and mastoids are clear. (units unknown) (unknown) (unknown) (no date) (unknown) (unknown) Skull and face: Calvarium and visualized facial bones are intact, without (units unknown) (unknown) (unknown) (no date) (unknown) (unknown) TECHNIQUE: (units unknown) (unknown) (unknown) (no date) (unknown) (unknown) Ventricles (units unknown) (unknown) (unknown) (no date) (unknown) (unknown) are normal in size and shape. (units unknown) (unknown) (unknown) (no date) (unknown) (unknown) effect (units unknown) (unknown) (unknown) (no date) (unknown) (unknown) following (units unknown) (unknown) (unknown) (no date) (unknown) (unknown) interface is normal. (units unknown) (unknown) (unknown) (no date) (unknown) (unknown) lesions. (units unknown) (unknown) (unknown) (no date) (unknown) (unknown) matter (units unknown) (unknown) (unknown) (no date) (unknown) (unknown) patient (units unknown) (unknown) (unknown) (no date) (unknown) (unknown) size. (units unknown) (unknown) (unknown) (no date) (unknown) (unknown) suspicious (units unknown) (unknown) (unknown) (no date) (unknown) (unknown) to the (units unknown) (unknown) (unknown) (no date) (unknown) (unknown) vertex, with coronal and sagittal reformats. For radiation dose reduction, the (units unknown) (unknown) (unknown) (no date) (unknown) (unknown) visualized. (units unknown) (unknown) (unknown) (no date) (unknown) (unknown) was used: automated exposure control, adjustment of mA and/or kV according to (units unknown) (unknown) Result panel [id number] (unknown) (no date) (unknown) (unknown) (no value) (units unknown) (unknown) (unknown) (no date) (unknown) (unknown) [id number] (units unknown) (unknown) (unknown) (no date) (unknown) (unknown) 08/01/22 (units unknown) (unknown) (unknown) (no date) (unknown) (unknown) 1 tab PO DAILY Qty: 30 0RF (units unknown) (unknown) (unknown) (no date) (unknown) (unknown) 10 mg PO DAILY (units unknown) (unknown) (unknown) (no date) (unknown) (unknown) 100 mg PO DAILY Qty: 30 0RF (units unknown) (unknown) (unknown) (no date) (unknown) (unknown) 12 point review of systems is negative except for those stated above (units unknown) (unknown) (unknown) (no date) (unknown) (unknown) 300 mg PO DAILY (units unknown) (unknown) (unknown) (no date) (unknown) (unknown) 31-year-old female former smoker with extensive history of alcohol abuse returns (units unknown) (unknown) (unknown) (no date) (unknown) (unknown) 40 mg PO 0700 Qty: 3 0 0RF (units unknown) (unknown) (unknown) (no date) (unknown) (unknown) 50 mg PO DAILY (units unknown) (unknown) (unknown) (no date) (unknown) (unknown) Age/Sex: 31 / F (units unknown) (unknown) (unknown) (no date) (unknown) (unknown) Alcohol withdrawal delirium, acute, hyperactive (units unknown) (unknown) (unknown) (no date) (unknown) (unknown) Alcoholism (units unknown) (unknown) (unknown) (no date) (unknown) (unknown) Allergies (units unknown) (unknown) (unknown) (no date) (unknown) (unknown) Allergy/AdvReac Type Severity Reaction Status Date / Time (units unknown) (unknown) (unknown) (no date) (unknown) (unknown) Anemia (-2017) (units unknown) (unknown) (unknown) (no date) (unknown) (unknown) BACK: Nontender without deformity or crepitance. No flank tenderness. (units unknown) (unknown) (unknown) (no date) (unknown) (unknown) CARDIOVASCULAR: Regular rate and rhythm without murmurs, gallops, or rubs. (units unknown) (unknown) (unknown) (no date) (unknown) (unknown) CARDIOVASCULAR: See HPI (units unknown) (unknown) (unknown) (no date) (unknown) (unknown) CT head/brain wo con Stat (units unknown) (unknown) (unknown) (no date) (unknown) (unknown) Chief Complaint: Psychiatric Symptoms (units unknown) (unknown) (unknown) (no date) (unknown) (unknown) Course (units unknown) (unknown) (unknown) (no date) (unknown) (unknown) : 1990 Acct:[id number] (units unknown) (unknown) (unknown) (no date) (unknown) (unknown) Date of Service: 08/01/22 (units unknown) (unknown) (unknown) (no date) (unknown) (unknown) Departure (units unknown) (unknown) (unknown) (no date) (unknown) (unknown) Discharge Plan (units unknown) (unknown) (unknown) (no date) (unknown) (unknown) ED Orders (units unknown) (unknown) (unknown) (no date) (unknown) (unknown) ENT: Nose without bleeding, purulent drainage. Throat without erythema, (units unknown) (unknown) (unknown) (no date) (unknown) (unknown) ER Physician: Reinaldo Arthur D.O. (units unknown) (unknown) (unknown) (no date) (unknown) (unknown) EXTREMITIES: No imelda a or joint tenderness. Tremulous with arms extended (units unknown) (unknown) (unknown) (no date) (unknown) (unknown) EYES: Pupils equal round and reactive. Extraocular motions intact. No scleral (units unknown) (unknown) (unknown) (no date) (unknown) (unknown) Emergency Report (units unknown) (unknown) (unknown) (no date) (unknown) (unknown) Exam Narrative: (units unknown) (unknown) (unknown) (no date) (unknown) (unknown) Exam (units unknown) (unknown) (unknown) (no date) (unknown) (unknown) Family History (units unknown) (unknown) (unknown) (no date) (unknown) (unknown) Family/Other Alcoholism (units unknown) (unknown) (unknown) (no date) (unknown) (unknown) Family/Other Diabete s mellitus (units unknown) (unknown) (unknown) (no date) (unknown) (unknown) Father Alcoholism (units unknown) (unknown) (unknown) (no date) (unknown) (unknown) Tonia Schneider MD [Primary Care Provider] (units unknown) (unknown) (unknown) (no date) (unknown) (unknown) GASTROINTESTINAL: Abdomen soft, non-tender, nondistended. (units unknown) (unknown) (unknown) (no date) (unknown) (unknown) GASTROINTESTINAL: Denies nausea, vomiting, abdominal pain, diarrhea, (units unknown) (unknown) (unknown) (no date) (unknown) (unknown) GENERAL: Denies chills, fatigue, malaise, fever, sweats. (units unknown) (unknown) (unknown) (no date) (unknown) (unknown) GENERAL: [31] year old patient appears stated age. Well-developed patient, in (units unknown) (unknown) (unknown) (no date) (unknown) (unknown) : Denies dysuria, frequency, incontinence, hematuria, urinary retention. (units unknown) (unknown) (unknown) (no date) (unknown) (unknown) General (units unknown) (unknown) (unknown) (no date) (unknown) (unknown) Grandfather Smoker (units unknown) (unknown) (unknown) (no date) (unknown) (unknown) Grandfather Unknown whether patient has any health problems (units unknown) (unknown) (unknown) (no date) (unknown) (unknown) Grandmother Diabetes mellitus (units unknown) (unknown) (unknown) (no date) (unknown) (unknown) Grandmother Hypoglycemia (units unknown) (unknown) (unknown) (no date) (unknown) (unknown) H/O dilation and curettage (-12/14/16) (units unknown) (unknown) (unknown) (no date) (unknown) (unknown) H/O wisdom tooth extraction () (units unknown) (unknown) (unknown) (no date) (unknown) (unknown) HEAD: Atraumatic. Normocephalic. (units unknown) (unknown) (unknown) (no date) (unknown) (unknown) HEENT: Denies sinus pain, ear pain, sore throat, difficulty swallowing, (units unknown) (unknown) (unknown) (no date) (unknown) (unknown) HPI - Altered Mental Status (units unknown) (unknown) (unknown) (no date) (unknown) (unknown) HPI narrative: (units unknown) (unknown) (unknown) (no date) (unknown) (unknown) History of Present Illness (units unknown) (unknown) (unknown) (no date) (unknown) (unknown) Home Medications (units unknown) (unknown) (unknown) (no date) (unknown) (unknown) Insomnia (units unknown) (unknown) (unknown) (no date) (unknown) (unknown) [address] [id number] (units unknown) (unknown) (unknown) (no date) (unknown) (unknown) MUSCULOSKELETAL: denies weakness, joint pain, or bony pain (units unknown) (unknown) (unknown) (no date) (unknown) (unknown) Medical History (units unknown) (unknown) (unknown) (no date) (unknown) (unknown) Medication Instructions Recorded Confirmed (units unknown) (unknown) (unknown) (no date) (unknown) (unknown) Medication Instructions Recorded (units unknown) (unknown) (unknown) (no date) (unknown) (unknown) Menometrorrhagia (units unknown) (unknown) (unknown) (no date) (unknown) (unknown) Mother Diabetes mellitus (units unknown) (unknown) (unknown) (no date) (unknown) (unknown) NECK: Trachea midline. Non tender (units unknown) (unknown) (unknown) (no date) (unknown) (unknown) NEURO: AOx3. Cranial nerves 2-12 grossly intact (units unknown) (unknown) (unknown) (no date) (unknown) (unknown) NEUROLOGIC: See HPI (units unknown) (unknown) (unknown) (no date) (unknown) (unknown) Narrative (units unknown) (unknown) (unknown) (no date) (unknown) (unknown) Narrative: (units unknown) (unknown) (unknown) (no date) (unknown) (unknown) No Action (units unknown) (unknown) (unknown) (no date) (unknown) (unknown) Obesity (units unknown) (unknown) (unknown) (no date) (unknown) (unknown) Ordered: (units unknown) (unknown) (unknown) (no date) (unknown) (unknown) Orders (units unknown) (unknown) (unknown) (no date) (unknown) (unknown) Overweight (units unknown) (unknown) (unknown) (no date) (unknown) (unknown) PSYCHIATRIC: No concerning psychosocial issues. (units unknown) (unknown) (unknown) (no date) (unknown) (unknown) Patient History (units unknown) (unknown) (unknown) (no date) (unknown) (unknown) Patient: Sarah Connors MR#: M (units unknown) (unknown) (unknown) (no date) (unknown) (unknown) Prescriptions: (units unknown) (unknown) (unknown) (no date) (unknown) (unknown) Previous Rx's (units unknown) (unknown) (unknown) (no date) (unknown) (unknown) RESPIRATORY: Clear t o auscultation. Breath sounds equal bilaterally. No wheezes, (units unknown) (unknown) (unknown) (no date) (unknown) (unknown) RESPIRATORY: Denies dyspnea, cough, wheezing, hemoptysis, sputum. (units unknown) (unknown) (unknown) (no date) (unknown) (unknown) Referrals: (units unknown) (unknown) (unknown) (no date) (unknown) (unknown) Related Data (units unknown) (unknown) (unknown) (no date) (unknown) (unknown) Review of Systems (units unknown) (unknown) (unknown) (no date) (unknown) (unknown) S/P myringotomy with insertion of tube (units unknown) (unknown) (unknown) (no date) (unknown) (unknown) SKIN: Denies rash, skin lesions, or other (units unknown) (unknown) (unknown) (no date) (unknown) (unknown) SKIN: No rash or erythema of visible areas (units unknown) (unknown) (unknown) (no date) (unknown) (unknown) (spontaneous vaginal delivery) (-09/05/18) (units unknown) (unknown) (unknown) (no date) (unknown) (unknown) Signed By: (units unknown) (unknown) (unknown) (no date) (unknown) (unknown) Smoker (units unknown) (unknown) (unknown) (no date) (unknown) (unknown) Smoking Status: Former smoker (units unknown) (unknown) (unknown) (no date) (unknown) (unknown) Social History (units unknown) (unknown) (unknown) (no date) (unknown) (unknown) Stated Complaint: Altered LOC (units unknown) (unknown) (unknown) (no date) (unknown) (unknown) Substance Use Type: does not use (units unknown) (unknown) (unknown) (no date) (unknown) (unknown) Surgical History (units unknown) (unknown) (unknown) (no date) (unknown) (unknown) Time Seen by Provider: 08/01/22 05:45 (units unknown) (unknown) (unknown) (no date) (unknown) (unknown) [METOCLOPRAMIDE] (units unknown) (unknown) (unknown) (no date) (unknown) (unknown) alcohol intake frequency: 3 or more drinks per day (units unknown) (unknown) (unknown) (no date) (unknown) (unknown) alcohol intake: former (units unknown) (unknown) (unknown) (no date) (unknown) (unknown) alert but does still have some visual hallucinations is a bit tremulous with (units unknown) (unknown) (unknown) (no date) (unknown) (unknown) arms extended and agitated. She denies any recent trauma or injury. (units unknown) (unknown) (unknown) (no date) (unknown) (unknown) chief complaint of withdrawal symptoms and was treated with Ativan and phenobarb (units unknown) (unknown) (unknown) (no date) (unknown) (unknown) constipation, melena. (units unknown) (unknown) (unknown) (no date) (unknown) (unknown) current occupational exposures/hazards: Yes (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 with Pandemic ) (units unknown) (unknown) (unknown) (no date) (unknown) (unknown) dizziness. 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 She had been seen and evaluated yesterday with a (units unknown) (unknown) (unknown) (no date) (unknown) (unknown) hallucinations that improved tremendously. She presents tonight and the (units unknown) (unknown) (unknown) (no date) (unknown) (unknown) household members: children (units unknown) (unknown) (unknown) (no date) (unknown) (unknown) hydrocodone [HYDROCODONE] AdvReac Unknown VOMITING Verified 07/12/22 16:18 (units unknown) (unknown) (unknown) (no date) (unknown) (unknown) hydroxyzine HCl 50 m g tablet 50 mg PO DAILY 07/13/22 07/13/22 (units unknown) (unknown) (unknown) (no date) (unknown) (unknown) hydroxyzine HCl 50 m g tablet (units unknown) (unknown) (unknown) (no date) (unknown) (unknown) icterus. No injectio n or drainage. (units unknown) (unknown) (unknown) (no date) (unknown) (unknown) marital status: (units unknown) (unknown) (unknown) (no date) (unknown) (unknown) mcg tablet (Tab-A-Kael) (units unknown) (unknown) (unknown) (no date) (unknown) (unknown) metoclopramide Allergy Mild RASH/HIVES Verified 07/12/22 16:18 (units unknown) (unknown) (unknown) (no date) (unknown) (unknown) mg tablet (units unknown) (unknown) (unknown) (no date) (unknown) (unknown) mild distress. Agitated a bit in distress, alert to person and place (units unknown) (unknown) (unknown) (no date) (unknown) (unknown) multivitamin with folic acid 400 1 tab PO DAILY #30 tabs 07/14/22 (units unknown) (unknown) (unknown) (no date) (unknown) (unknown) multivitamin with folic acid [Tab-A-Kael] 400 mcg Tablet (units unknown) (unknown) (unknown) (no date) (unknown) (unknown) number of children: 1 (units unknown) (unknown) (unknown) (no date) (unknown) (unknown) occupational status: employed (units unknown) (unknown) (unknown) (no date) (unknown) (unknown) pantoprazole 40 mg Tablet,Delayed Release (Dr/Ec) (units unknown) (unknown) (unknown) (no date) (unknown) (unknown) pantoprazole 40 mg tablet,delayed 40 mg PO 0700 #30 tabs 07/14/22 (units unknown) (unknown) (unknown) (no date) (unknown) (unknown) presence of EMS has there is a report that she had been found hallucinating and (units unknown) (unknown) (unknown) (no date) (unknown) (unknown) quetiapine 300 mg tablet 300 mg PO DAILY 07/13/22 07/13/22 (units unknown) (unknown) (unknown) (no date) (unknown) (unknown) quetiapine 300 mg tablet (units unknown) (unknown) (unknown) (no date) (unknown) (unknown) rales, or rhonchi. (units unknown) (unknown) (unknown) (no date) (unknown) (unknown) rather well until recently when she went on a bit of a [place] and had her last (units unknown) (unknown) (unknown) (no date) (unknown) (unknown) release (units unknown) (unknown) (unknown) (no date) (unknown) (unknown) second hand exposure : No (growing up as a child - not currently) (units unknown) (unknown) (unknown) (no date) (unknown) (unknown) special renee needs: No (units unknown) (unknown) (unknown) (no date) (unknown) (unknown) substance use type: does not use (units unknown) (unknown) (unknown) (no date) (unknown) (unknown) then jumped over a fence and ran to [place]. On arrival patient is largely (units unknown) (unknown) (unknown) (no date) (unknown) (unknown) thiamine mononitrate (vit B1) 100 100 mg PO DAILY #30 tabs 07/14/22 (units unknown) (unknown) (unknown) (no date) (unknown) (unknown) thiamine mononitrate (vit B1) 100 mg Tablet (units unknown) (unknown) (unknown) (no date) (unknown) (unknown) tonsillar hypertroph y or exudate. Airway patent. (units unknown) (unknown) (unknown) (no date) (unknown) (unknown) was feeling quite well and discharged home. She states that she had been doing (units unknown) (unknown) (unknown) (no date) (unknown) (unknown) weekend. She presented yesterday with agitation and anxiety along with some (units unknown) (unknown) (unknown) (no date) (unknown) (unknown) yelling at people that were not there, maintaining that a smoker or bit her and (units unknown) (unknown) Result panel 2229 (unknown) (no date) (unknown) (unknown) 1.1 (units unknown) (unknown) (unknown) (no date) (unknown) (unknown) 12.2 seconds (unknown) Result panel 2230 (unknown) (no date) (unknown) (unknown) 0 /ul (unknown) (unknown) (no date) (unknown) (unknown) 1.5 % (unknown) (unknown) (no date) (unknown) (unknown) 100 /ul (unknown) (unknown) (no date) (unknown) (unknown) 1000 /ul (unknown) (unknown) (no date) (unknown) (unknown) 178 x10 3/ul (unknown) (unknown) (no date) (unknown) (unknown) 19.7 % (unknown) (unknown) (no date) (unknown) (unknown) 1900 /ul (unknown) (unknown) (no date) (unknown) (unknown) 26.5 pg (unknown) (unknown) (no date) (unknown) (unknown) 28.9 % (unknown) (unknown) (no date) (unknown) (unknown) 29.3 % (unknown) (unknown) (no date) (unknown) (unknown) 3.3 x10 3/ul (unknown) (unknown) (no date) (unknown) (unknown) 3.59 x10 6/ul (unknown) (unknown) (no date) (unknown) (unknown) 3.6 % (unknown) (unknown) (no date) (unknown) (unknown) 300 /ul (unknown) (unknown) (no date) (unknown) (unknown) 32.9 % (unknown) (unknown) (no date) (unknown) (unknown) 57.6 % (unknown) (unknown) (no date) (unknown) (unknown) 8.0 % (unknown) (unknown) (no date) (unknown) (unknown) 80.6 fl (unknown) (unknown) (no date) (unknown) (unknown) 9.5 g/dl (unknown) Result panel 2231 (unknown) (no date) (unknown) (unknown) > 60 ml/min (unknown) (unknown) (no date) (unknown) (unknown) > 60 ml/min (unknown) (unknown) (no date) (unknown) (unknown) < 1.0 mg/dl (unknown) (unknown) (no date) (unknown) (unknown) < 1.0 mg/dl (unknown) (unknown) (no date) (unknown) (unknown) < 10 mg/dl (unknown) (unknown) (no date) (unknown) (unknown) < 10 mg/dl (unknown) (unknown) (no date) (unknown) (unknown) < 10 ug/ml (unknown) (unknown) (no date) (unknown) (unknown) < 10 ug/ml (unknown) (unknown) (no date) (unknown) (unknown) 0.7 mg/dl (unknown) (unknown) (no date) (unknown) (unknown) 0.72 mg/dl (unknown) (unknown) (no date) (unknown) (unknown) 1.5 (units unknown) (unknown) (unknown) (no date) (unknown) (unknown) 104 mmol/l (unknown) (unknown) (no date) (unknown) (unknown) 136 mmol/l (unknown) (unknown) (no date) (unknown) (unknown) 14 mg/dl (unknown) (unknown) (no date) (unknown) (unknown) 19.4 (units unknown) (unknown) (unknown) (no date) (unknown) (unknown) 2.7 g/dl (unknown) (unknown) (no date) (unknown) (unknown) 24 iu/l (unknown) (unknown) (no date) (unknown) (unknown) 24 mmol/l (unknown) (unknown) (no date) (unknown) (unknown) 3.5 mmol/l (unknown) (unknown) (no date) (unknown) (unknown) 337 u/l (unknown) (unknown) (no date) (unknown) (unknown) 4.1 g/dl (unknown) (unknown) (no date) (unknown) (unknown) 52 u/l (unknown) (unknown) (no date) (unknown) (unknown) 6.8 g/dl (unknown) (unknown) (no date) (unknown) (unknown) 67 iu/l (unknown) (unknown) (no date) (unknown) (unknown) 8.9 mg/dl (unknown) (unknown) (no date) (unknown) (unknown) 99 mg/dl (unknown) (unknown) (no date) (unknown) (unknown) 99 mg/dl (unknown) Result panel 2232 (unknown) (no date) (unknown) (unknown) 1-5/HPF (units unknown) (unknown) (unknown) (no date) (unknown) (unknown) 3 (units unknown) (unknown) (unknown) (no date) (unknown) (unknown) 3 (units unknown) (unknown) (unknown) (no date) (unknown) (unknown) 5-10 /HPF (units unknown) (unknown) (unknown) (no date) (unknown) (unknown) Cult Not Indicated (units unknown) (unknown) (unknown) (no date) (unknown) (unknown) Few (2-10) (units unknown) (unknown) (unknown) (no date) (unknown) (unknown) None Seen (units unknown) (unknown) (unknown) (no date) (unknown) (unknown) None Seen (units unknown) (unknown) Result panel 2233 (unknown) (no date) (unknown) (unknown) Negative (units unknown) (unknown) Result panel 2234 (unknown) (no date) (unknown) (unknown) Negative (units unknown) (unknown) (unknown) (no date) (unknown) (unknown) Normal (units unknown) (unknown) (unknown) (no date) (unknown) (unknown) Positive (units unknown) (unknown) Result panel 2235 (unknown) (no date) (unknown) (unknown) (no value) (units unknown) (unknown) (unknown) (no date) (unknown) (unknown) [id number] (units unknown) (unknown) (unknown) (no date) (unknown) (unknown) 08/01/22 (units unknown) (unknown) (unknown) (no date) (unknown) (unknown) 1 tab PO DAILY Qty: 30 0RF (units unknown) (unknown) (unknown) (no date) (unknown) (unknown) 10 mg PO DAILY (units unknown) (unknown) (unknown) (no date) (unknown) (unknown) 100 mg PO DAILY Qty: 30 0RF (units unknown) (unknown) (unknown) (no date) (unknown) (unknown) 12 point review of systems is negative except for those stated above (units unknown) (unknown) (unknown) (no date) (unknown) (unknown) 300 mg PO DAILY (units unknown) (unknown) (unknown) (no date) (unknown) (unknown) 31-year-old female former smoker with extensive history of alcohol abuse returns (units unknown) (unknown) (unknown) (no date) (unknown) (unknown) 40 mg PO 0700 Qty: 3 0 0RF (units unknown) (unknown) (unknown) (no date) (unknown) (unknown) 50 mg PO DAILY (units unknown) (unknown) (unknown) (no date) (unknown) (unknown) Age/Sex: 31 / F (units unknown) (unknown) (unknown) (no date) (unknown) (unknown) Alcohol withdrawal delirium, acute, hyperactive (units unknown) (unknown) (unknown) (no date) (unknown) (unknown) Alcoholism (units unknown) (unknown) (unknown) (no date) (unknown) (unknown) Allergies (units unknown) (unknown) (unknown) (no date) (unknown) (unknown) Allergy/AdvReac Type Severity Reaction Status Date / Time (units unknown) (unknown) (unknown) (no date) (unknown) (unknown) Anemia (-2017) (units unknown) (unknown) (unknown) (no date) (unknown) (unknown) BACK: Nontender without deformity or crepitance. No flank tenderness. (units unknown) (unknown) (unknown) (no date) (unknown) (unknown) CARDIOVASCULAR: Regular rate and rhythm without murmurs, gallops, or rubs. (units unknown) (unknown) (unknown) (no date) (unknown) (unknown) CARDIOVASCULAR: See HPI (units unknown) (unknown) (unknown) (no date) (unknown) (unknown) CT head/brain wo con Stat (units unknown) (unknown) (unknown) (no date) (unknown) (unknown) Chief Complaint: Psychiatric Symptoms (units unknown) (unknown) (unknown) (no date) (unknown) (unknown) Course (units unknown) (unknown) (unknown) (no date) (unknown) (unknown) : 1990 Acct:[id number] (units unknown) (unknown) (unknown) (no date) (unknown) (unknown) Date of Service: 08/01/22 (units unknown) (unknown) (unknown) (no date) (unknown) (unknown) Departure (units unknown) (unknown) (unknown) (no date) (unknown) (unknown) Discharge Plan (units unknown) (unknown) (unknown) (no date) (unknown) (unknown) ED Orders (units unknown) (unknown) (unknown) (no date) (unknown) (unknown) ENT: Nose without bleeding, purulent drainage. Throat without erythema, (units unknown) (unknown) (unknown) (no date) (unknown) (unknown) ER Physician: Reinaldo Arthur D.O. (units unknown) (unknown) (unknown) (no date) (unknown) (unknown) EXTREMITIES: No imelda a or joint tenderness. Tremulous with arms extended (units unknown) (unknown) (unknown) (no date) (unknown) (unknown) EYES: Pupils equal round and reactive. Extraocular motions intact. No scleral (units unknown) (unknown) (unknown) (no date) (unknown) (unknown) Emergency Report (units unknown) (unknown) (unknown) (no date) (unknown) (unknown) Exam Narrative: (units unknown) (unknown) (unknown) (no date) (unknown) (unknown) Exam (units unknown) (unknown) (unknown) (no date) (unknown) (unknown) Family History (units unknown) (unknown) (unknown) (no date) (unknown) (unknown) Family/Other Alcoholism (units unknown) (unknown) (unknown) (no date) (unknown) (unknown) Family/Other Diabete s mellitus (units unknown) (unknown) (unknown) (no date) (unknown) (unknown) Father Alcoholism (units unknown) (unknown) (unknown) (no date) (unknown) (unknown) Tonia Schneider MD [Primary Care Provider] (units unknown) (unknown) (unknown) (no date) (unknown) (unknown) GASTROINTESTINAL: Abdomen soft, non-tender, nondistended. (units unknown) (unknown) (unknown) (no date) (unknown) (unknown) GASTROINTESTINAL: Denies nausea, vomiting, abdominal pain, diarrhea, (units unknown) (unknown) (unknown) (no date) (unknown) (unknown) GENERAL: Denies chills, fatigue, malaise, fever, sweats. (units unknown) (unknown) (unknown) (no date) (unknown) (unknown) GENERAL: [31] year old patient appears stated age. Well-developed patient, in (units unknown) (unknown) (unknown) (no date) (unknown) (unknown) : Denies dysuria, frequency, incontinence, hematuria, urinary retention. (units unknown) (unknown) (unknown) (no date) (unknown) (unknown) General (units unknown) (unknown) (unknown) (no date) (unknown) (unknown) Grandfather Smoker (units unknown) (unknown) (unknown) (no date) (unknown) (unknown) Grandfather Unknown whether patient has any health problems (units unknown) (unknown) (unknown) (no date) (unknown) (unknown) Grandmother Diabetes mellitus (units unknown) (unknown) (unknown) (no date) (unknown) (unknown) Grandmother Hypoglycemia (units unknown) (unknown) (unknown) (no date) (unknown) (unknown) H/O dilation and curettage (-12/14/16) (units unknown) (unknown) (unknown) (no date) (unknown) (unknown) H/O wisdom tooth extraction () (units unknown) (unknown) (unknown) (no date) (unknown) (unknown) HEAD: Atraumatic. Normocephalic. (units unknown) (unknown) (unknown) (no date) (unknown) (unknown) HEENT: Denies sinus pain, ear pain, sore throat, difficulty swallowing, (units unknown) (unknown) (unknown) (no date) (unknown) (unknown) HPI - Altered Mental Status (units unknown) (unknown) (unknown) (no date) (unknown) (unknown) HPI narrative: (units unknown) (unknown) (unknown) (no date) (unknown) (unknown) History of Present Illness (units unknown) (unknown) (unknown) (no date) (unknown) (unknown) Home Medications (units unknown) (unknown) (unknown) (no date) (unknown) (unknown) Insomnia (units unknown) (unknown) (unknown) (no date) (unknown) (unknown) [address] [address] (units unknown) (unknown) (unknown) (no date) (unknown) (unknown) MUSCULOSKELETAL: denies weakness, joint pain, or bony pain (units unknown) (unknown) (unknown) (no date) (unknown) (unknown) Medical History (units unknown) (unknown) (unknown) (no date) (unknown) (unknown) Medication Instructions Recorded Confirmed (units unknown) (unknown) (unknown) (no date) (unknown) (unknown) Medication Instructions Recorded (units unknown) (unknown) (unknown) (no date) (unknown) (unknown) Menometrorrhagia (units unknown) (unknown) (unknown) (no date) (unknown) (unknown) Mother Diabetes mellitus (units unknown) (unknown) (unknown) (no date) (unknown) (unknown) NECK: Trachea midline. Non tender (units unknown) (unknown) (unknown) (no date) (unknown) (unknown) NEURO: AOx3. Cranial nerves 2-12 grossly intact (units unknown) (unknown) (unknown) (no date) (unknown) (unknown) NEUROLOGIC: See HPI (units unknown) (unknown) (unknown) (no date) (unknown) (unknown) Narrative (units unknown) (unknown) (unknown) (no date) (unknown) (unknown) Narrative: (units unknown) (unknown) (unknown) (no date) (unknown) (unknown) No Action (units unknown) (unknown) (unknown) (no date) (unknown) (unknown) Obesity (units unknown) (unknown) (unknown) (no date) (unknown) (unknown) Ordered: (units unknown) (unknown) (unknown) (no date) (unknown) (unknown) Orders (units unknown) (unknown) (unknown) (no date) (unknown) (unknown) Overweight (units unknown) (unknown) (unknown) (no date) (unknown) (unknown) PSYCHIATRIC: No concerning psychosocial issues. (units unknown) (unknown) (unknown) (no date) (unknown) (unknown) Patient History (units unknown) (unknown) (unknown) (no date) (unknown) (unknown) Patient: Sarah Connors MR#: M (units unknown) (unknown) (unknown) (no date) (unknown) (unknown) Prescriptions: (units unknown) (unknown) (unknown) (no date) (unknown) (unknown) Previous Rx's (units unknown) (unknown) (unknown) (no date) (unknown) (unknown) RESPIRATORY: Clear t o auscultation. Breath sounds equal bilaterally. No wheezes, (units unknown) (unknown) (unknown) (no date) (unknown) (unknown) RESPIRATORY: Denies dyspnea, cough, wheezing, hemoptysis, sputum. (units unknown) (unknown) (unknown) (no date) (unknown) (unknown) Referrals: (units unknown) (unknown) (unknown) (no date) (unknown) (unknown) Related Data (units unknown) (unknown) (unknown) (no date) (unknown) (unknown) Review of Systems (units unknown) (unknown) (unknown) (no date) (unknown) (unknown) S/P myringotomy with insertion of tube (units unknown) (unknown) (unknown) (no date) (unknown) (unknown) SKIN: Denies rash, skin lesions, or other (units unknown) (unknown) (unknown) (no date) (unknown) (unknown) SKIN: No rash or erythema of visible areas (units unknown) (unknown) (unknown) (no date) (unknown) (unknown) (spontaneous vaginal delivery) (-09/05/18) (units unknown) (unknown) (unknown) (no date) (unknown) (unknown) Signed By: (units unknown) (unknown) (unknown) (no date) (unknown) (unknown) Smoker (units unknown) (unknown) (unknown) (no date) (unknown) (unknown) Smoking Status: Former smoker (units unknown) (unknown) (unknown) (no date) (unknown) (unknown) Social History (units unknown) (unknown) (unknown) (no date) (unknown) (unknown) Stated Complaint: Altered LOC (units unknown) (unknown) (unknown) (no date) (unknown) (unknown) Substance Use Type: does not use (units unknown) (unknown) (unknown) (no date) (unknown) (unknown) Surgical History (units unknown) (unknown) (unknown) (no date) (unknown) (unknown) Time Seen by Provider: 08/01/22 05:45 (units unknown) (unknown) (unknown) (no date) (unknown) (unknown) [METOCLOPRAMIDE] (units unknown) (unknown) (unknown) (no date) (unknown) (unknown) alcohol intake frequency: 3 or more drinks per day (units unknown) (unknown) (unknown) (no date) (unknown) (unknown) alcohol intake: former (units unknown) (unknown) (unknown) (no date) (unknown) (unknown) alert but does still have some visual hallucinations is a bit tremulous with (units unknown) (unknown) (unknown) (no date) (unknown) (unknown) arms extended and agitated. She denies any recent trauma or injury. (units unknown) (unknown) (unknown) (no date) (unknown) (unknown) chief complaint of withdrawal symptoms and was treated with Ativan and phenobarb (units unknown) (unknown) (unknown) (no date) (unknown) (unknown) constipation, melena. (units unknown) (unknown) (unknown) (no date) (unknown) (unknown) current occupational exposures/hazards: Yes (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 with Pandemic ) (units unknown) (unknown) (unknown) (no date) (unknown) (unknown) dizziness. 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 She had been seen and evaluated yesterday with a (units unknown) (unknown) (unknown) (no date) (unknown) (unknown) hallucinations that improved tremendously. She presents tonight and the (units unknown) (unknown) (unknown) (no date) (unknown) (unknown) household members: children (units unknown) (unknown) (unknown) (no date) (unknown) (unknown) hydrocodone [HYDROCODONE] AdvReac Unknown VOMITING Verified 07/12/22 16:18 (units unknown) (unknown) (unknown) (no date) (unknown) (unknown) hydroxyzine HCl 50 m g tablet 50 mg PO DAILY 07/13/22 07/13/22 (units unknown) (unknown) (unknown) (no date) (unknown) (unknown) hydroxyzine HCl 50 m g tablet (units unknown) (unknown) (unknown) (no date) (unknown) (unknown) icterus. No injectio n or drainage. (units unknown) (unknown) (unknown) (no date) (unknown) (unknown) marital status: (units unknown) (unknown) (unknown) (no date) (unknown) (unknown) mcg tablet (Tab-A-Kael) (units unknown) (unknown) (unknown) (no date) (unknown) (unknown) metoclopramide Allergy Mild RASH/HIVES Verified 07/12/22 16:18 (units unknown) (unknown) (unknown) (no date) (unknown) (unknown) mg tablet (units unknown) (unknown) (unknown) (no date) (unknown) (unknown) mild distress. Agitated a bit in distress, alert to person and place (units unknown) (unknown) (unknown) (no date) (unknown) (unknown) multivitamin with folic acid 400 1 tab PO DAILY #30 tabs 07/14/22 (units unknown) (unknown) (unknown) (no date) (unknown) (unknown) multivitamin with folic acid [Tab-A-Kael] 400 mcg Tablet (units unknown) (unknown) (unknown) (no date) (unknown) (unknown) number of children: 1 (units unknown) (unknown) (unknown) (no date) (unknown) (unknown) occupational status: employed (units unknown) (unknown) (unknown) (no date) (unknown) (unknown) pantoprazole 40 mg Tablet,Delayed Release (Dr/Ec) (units unknown) (unknown) (unknown) (no date) (unknown) (unknown) pantoprazole 40 mg tablet,delayed 40 mg PO 0700 #30 tabs 07/14/22 (units unknown) (unknown) (unknown) (no date) (unknown) (unknown) presence of EMS has there is a report that she had been found hallucinating and (units unknown) (unknown) (unknown) (no date) (unknown) (unknown) quetiapine 300 mg tablet 300 mg PO DAILY 07/13/22 07/13/22 (units unknown) (unknown) (unknown) (no date) (unknown) (unknown) quetiapine 300 mg tablet (units unknown) (unknown) (unknown) (no date) (unknown) (unknown) rales, or rhonchi. (units unknown) (unknown) (unknown) (no date) (unknown) (unknown) rather well until recently when she went on a bit of a [place] and had her last (units unknown) (unknown) (unknown) (no date) (unknown) (unknown) release (units unknown) (unknown) (unknown) (no date) (unknown) (unknown) second hand exposure : No (growing up as a child - not currently) (units unknown) (unknown) (unknown) (no date) (unknown) (unknown) special renee needs: No (units unknown) (unknown) (unknown) (no date) (unknown) (unknown) substance use type: does not use (units unknown) (unknown) (unknown) (no date) (unknown) (unknown) then jumped over a fence and ran to [place]. On arrival patient is largely (units unknown) (unknown) (unknown) (no date) (unknown) (unknown) thiamine mononitrate (vit B1) 100 100 mg PO DAILY #30 tabs 07/14/22 (units unknown) (unknown) (unknown) (no date) (unknown) (unknown) thiamine mononitrate (vit B1) 100 mg Tablet (units unknown) (unknown) (unknown) (no date) (unknown) (unknown) tonsillar hypertroph y or exudate. Airway patent. (units unknown) (unknown) (unknown) (no date) (unknown) (unknown) was feeling quite well and discharged home. She states that she had been doing (units unknown) (unknown) (unknown) (no date) (unknown) (unknown) weekend. She presented yesterday with agitation and anxiety along with some (units unknown) (unknown) (unknown) (no date) (unknown) (unknown) yelling at people that were not there, maintaining that a smoker or bit her and (units unknown) (unknown) Result panel [id number] (unknown) (no date) (unknown) (unknown) (no value) (units unknown) (unknown) (unknown) (no date) (unknown) (unknown) [id number] (units unknown) (unknown) (unknown) (no date) (unknown) (unknown) 08/01/22 (units unknown) (unknown) (unknown) (no date) (unknown) (unknown) 1 tab PO DAILY Qty: 30 0RF (units unknown) (unknown) (unknown) (no date) (unknown) (unknown) 10 mg PO DAILY (units unknown) (unknown) (unknown) (no date) (unknown) (unknown) 100 mg PO DAILY Qty: 30 0RF (units unknown) (unknown) (unknown) (no date) (unknown) (unknown) 12 point review of systems is negative except for those stated above (units unknown) (unknown) (unknown) (no date) (unknown) (unknown) 300 mg PO DAILY (units unknown) (unknown) (unknown) (no date) (unknown) (unknown) 31-year-old female former smoker with extensive history of alcohol abuse returns (units unknown) (unknown) (unknown) (no date) (unknown) (unknown) 40 mg PO 0700 Qty: 3 0 0RF (units unknown) (unknown) (unknown) (no date) (unknown) (unknown) 50 mg PO DAILY (units unknown) (unknown) (unknown) (no date) (unknown) (unknown) Age/Sex: 31 / F (units unknown) (unknown) (unknown) (no date) (unknown) (unknown) Alcohol withdrawal delirium, acute, hyperactive (units unknown) (unknown) (unknown) (no date) (unknown) (unknown) Alcoholism (units unknown) (unknown) (unknown) (no date) (unknown) (unknown) Allergies (units unknown) (unknown) (unknown) (no date) (unknown) (unknown) Allergy/AdvReac Type Severity Reaction Status Date / Time (units unknown) (unknown) (unknown) (no date) (unknown) (unknown) Anemia (-2017) (units unknown) (unknown) (unknown) (no date) (unknown) (unknown) BACK: Nontender without deformity or crepitance. No flank tenderness. (units unknown) (unknown) (unknown) (no date) (unknown) (unknown) CARDIOVASCULAR: Regular rate and rhythm without murmurs, gallops, or rubs. (units unknown) (unknown) (unknown) (no date) (unknown) (unknown) CARDIOVASCULAR: See HPI (units unknown) (unknown) (unknown) (no date) (unknown) (unknown) CT head/brain wo con Stat (units unknown) (unknown) (unknown) (no date) (unknown) (unknown) Chief Complaint: Psychiatric Symptoms (units unknown) (unknown) (unknown) (no date) (unknown) (unknown) Course (units unknown) (unknown) (unknown) (no date) (unknown) (unknown) : 1990 Acct:[id number] (units unknown) (unknown) (unknown) (no date) (unknown) (unknown) Date of Service: 08/01/22 (units unknown) (unknown) (unknown) (no date) (unknown) (unknown) Departure (units unknown) (unknown) (unknown) (no date) (unknown) (unknown) Discharge Plan (units unknown) (unknown) (unknown) (no date) (unknown) (unknown) ED Orders (units unknown) (unknown) (unknown) (no date) (unknown) (unknown) ENT: Nose without bleeding, purulent drainage. Throat without erythema, (units unknown) (unknown) (unknown) (no date) (unknown) (unknown) ER Physician: Will Benitez D.O. (units unknown) (unknown) (unknown) (no date) (unknown) (unknown) EXTREMITIES: No imelda a or joint tenderness. Tremulous with arms extended (units unknown) (unknown) (unknown) (no date) (unknown) (unknown) EYES: Pupils equal round and reactive. Extraocular motions intact. No scleral (units unknown) (unknown) (unknown) (no date) (unknown) (unknown) Emergency Report (units unknown) (unknown) (unknown) (no date) (unknown) (unknown) Exam Narrative: (units unknown) (unknown) (unknown) (no date) (unknown) (unknown) Exam (units unknown) (unknown) (unknown) (no date) (unknown) (unknown) Family History (units unknown) (unknown) (unknown) (no date) (unknown) (unknown) Family/Other Alcoholism (units unknown) (unknown) (unknown) (no date) (unknown) (unknown) Family/Other Diabete s mellitus (units unknown) (unknown) (unknown) (no date) (unknown) (unknown) Father Alcoholism (units unknown) (unknown) (unknown) (no date) (unknown) (unknown) Tonia Schneider MD [Primary Care Provider] (units unknown) (unknown) (unknown) (no date) (unknown) (unknown) GASTROINTESTINAL: Abdomen soft, non-tender, nondistended. (units unknown) (unknown) (unknown) (no date) (unknown) (unknown) GASTROINTESTINAL: Denies nausea, vomiting, abdominal pain, diarrhea, (units unknown) (unknown) (unknown) (no date) (unknown) (unknown) GENERAL: Denies chills, fatigue, malaise, fever, sweats. (units unknown) (unknown) (unknown) (no date) (unknown) (unknown) GENERAL: [31] year old patient appears stated age. Well-developed patient, in (units unknown) (unknown) (unknown) (no date) (unknown) (unknown) : Denies dysuria, frequency, incontinence, hematuria, urinary retention. (units unknown) (unknown) (unknown) (no date) (unknown) (unknown) General (units unknown) (unknown) (unknown) (no date) (unknown) (unknown) Grandfather Smoker (units unknown) (unknown) (unknown) (no date) (unknown) (unknown) Grandfather Unknown whether patient has any health problems (units unknown) (unknown) (unknown) (no date) (unknown) (unknown) Grandmother Diabetes mellitus (units unknown) (unknown) (unknown) (no date) (unknown) (unknown) Grandmother Hypoglycemia (units unknown) (unknown) (unknown) (no date) (unknown) (unknown) H/O dilation and curettage (-12/14/16) (units unknown) (unknown) (unknown) (no date) (unknown) (unknown) H/O wisdom tooth extraction () (units unknown) (unknown) (unknown) (no date) (unknown) (unknown) HEAD: Atraumatic. Normocephalic. (units unknown) (unknown) (unknown) (no date) (unknown) (unknown) HEENT: Denies sinus pain, ear pain, sore throat, difficulty swallowing, (units unknown) (unknown) (unknown) (no date) (unknown) (unknown) HPI - Altered Mental Status (units unknown) (unknown) (unknown) (no date) (unknown) (unknown) HPI narrative: (units unknown) (unknown) (unknown) (no date) (unknown) (unknown) History of Present Illness (units unknown) (unknown) (unknown) (no date) (unknown) (unknown) Home Medications (units unknown) (unknown) (unknown) (no date) (unknown) (unknown) Insomnia (units unknown) (unknown) (unknown) (no date) (unknown) (unknown) [address] [address] (units unknown) (unknown) (unknown) (no date) (unknown) (unknown) MUSCULOSKELETAL: denies weakness, joint pain, or bony pain (units unknown) (unknown) (unknown) (no date) (unknown) (unknown) Medical History (units unknown) (unknown) (unknown) (no date) (unknown) (unknown) Medication Instructions Recorded Confirmed (units unknown) (unknown) (unknown) (no date) (unknown) (unknown) Medication Instructions Recorded (units unknown) (unknown) (unknown) (no date) (unknown) (unknown) Menometrorrhagia (units unknown) (unknown) (unknown) (no date) (unknown) (unknown) Mother Diabetes mellitus (units unknown) (unknown) (unknown) (no date) (unknown) (unknown) NECK: Trachea midline. Non tender (units unknown) (unknown) (unknown) (no date) (unknown) (unknown) NEURO: AOx3. Cranial nerves 2-12 grossly intact (units unknown) (unknown) (unknown) (no date) (unknown) (unknown) NEUROLOGIC: See HPI (units unknown) (unknown) (unknown) (no date) (unknown) (unknown) Narrative (units unknown) (unknown) (unknown) (no date) (unknown) (unknown) Narrative: (units unknown) (unknown) (unknown) (no date) (unknown) (unknown) No Action (units unknown) (unknown) (unknown) (no date) (unknown) (unknown) Obesity (units unknown) (unknown) (unknown) (no date) (unknown) (unknown) Ordered: (units unknown) (unknown) (unknown) (no date) (unknown) (unknown) Orders (units unknown) (unknown) (unknown) (no date) (unknown) (unknown) Overweight (units unknown) (unknown) (unknown) (no date) (unknown) (unknown) PSYCHIATRIC: No concerning psychosocial issues. (units unknown) (unknown) (unknown) (no date) (unknown) (unknown) Patient History (units unknown) (unknown) (unknown) (no date) (unknown) (unknown) Patient: Sarah Connors MR#: M (units unknown) (unknown) (unknown) (no date) (unknown) (unknown) Prescriptions: (units unknown) (unknown) (unknown) (no date) (unknown) (unknown) Previous Rx's (units unknown) (unknown) (unknown) (no date) (unknown) (unknown) RESPIRATORY: Clear t o auscultation. Breath sounds equal bilaterally. No wheezes, (units unknown) (unknown) (unknown) (no date) (unknown) (unknown) RESPIRATORY: Denies dyspnea, cough, wheezing, hemoptysis, sputum. (units unknown) (unknown) (unknown) (no date) (unknown) (unknown) Referrals: (units unknown) (unknown) (unknown) (no date) (unknown) (unknown) Related Data (units unknown) (unknown) (unknown) (no date) (unknown) (unknown) Review of Systems (units unknown) (unknown) (unknown) (no date) (unknown) (unknown) S/P myringotomy with insertion of tube (units unknown) (unknown) (unknown) (no date) (unknown) (unknown) SKIN: Denies rash, skin lesions, or other (units unknown) (unknown) (unknown) (no date) (unknown) (unknown) SKIN: No rash or erythema of visible areas (units unknown) (unknown) (unknown) (no date) (unknown) (unknown) (spontaneous vaginal delivery) (-09/05/18) (units unknown) (unknown) (unknown) (no date) (unknown) (unknown) Signed By: (units unknown) (unknown) (unknown) (no date) (unknown) (unknown) Smoker (units unknown) (unknown) (unknown) (no date) (unknown) (unknown) Smoking Status: Former smoker (units unknown) (unknown) (unknown) (no date) (unknown) (unknown) Social History (units unknown) (unknown) (unknown) (no date) (unknown) (unknown) Stated Complaint: Altered LOC (units unknown) (unknown) (unknown) (no date) (unknown) (unknown) Substance Use Type: does not use (units unknown) (unknown) (unknown) (no date) (unknown) (unknown) Surgical History (units unknown) (unknown) (unknown) (no date) (unknown) (unknown) Time Seen by Provider: 08/01/22 05:45 (units unknown) (unknown) (unknown) (no date) (unknown) (unknown) [METOCLOPRAMIDE] (units unknown) (unknown) (unknown) (no date) (unknown) (unknown) alcohol intake frequency: 3 or more drinks per day (units unknown) (unknown) (unknown) (no date) (unknown) (unknown) alcohol intake: former (units unknown) (unknown) (unknown) (no date) (unknown) (unknown) alert but does still have some visual hallucinations is a bit tremulous with (units unknown) (unknown) (unknown) (no date) (unknown) (unknown) arms extended and agitated. She denies any recent trauma or injury. (units unknown) (unknown) (unknown) (no date) (unknown) (unknown) chief complaint of withdrawal symptoms and was treated with Ativan and phenobarb (units unknown) (unknown) (unknown) (no date) (unknown) (unknown) constipation, melena. (units unknown) (unknown) (unknown) (no date) (unknown) (unknown) current occupational exposures/hazards: Yes (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 with Pandemic ) (units unknown) (unknown) (unknown) (no date) (unknown) (unknown) dizziness. 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 She had been seen and evaluated yesterday with a (units unknown) (unknown) (unknown) (no date) (unknown) (unknown) hallucinations that improved tremendously. She presents tonight and the (units unknown) (unknown) (unknown) (no date) (unknown) (unknown) household members: children (units unknown) (unknown) (unknown) (no date) (unknown) (unknown) hydrocodone [HYDROCODONE] AdvReac Unknown VOMITING Verified 07/12/22 16:18 (units unknown) (unknown) (unknown) (no date) (unknown) (unknown) hydroxyzine HCl 50 m g tablet 50 mg PO DAILY 07/13/22 07/13/22 (units unknown) (unknown) (unknown) (no date) (unknown) (unknown) hydroxyzine HCl 50 m g tablet (units unknown) (unknown) (unknown) (no date) (unknown) (unknown) icterus. No injectio n or drainage. (units unknown) (unknown) (unknown) (no date) (unknown) (unknown) marital status: (units unknown) (unknown) (unknown) (no date) (unknown) (unknown) mcg tablet (Tab-A-Kael) (units unknown) (unknown) (unknown) (no date) (unknown) (unknown) metoclopramide Allergy Mild RASH/HIVES Verified 07/12/22 16:18 (units unknown) (unknown) (unknown) (no date) (unknown) (unknown) mg tablet (units unknown) (unknown) (unknown) (no date) (unknown) (unknown) mild distress. Agitated a bit in distress, alert to person and place (units unknown) (unknown) (unknown) (no date) (unknown) (unknown) multivitamin with folic acid 400 1 tab PO DAILY #30 tabs 07/14/22 (units unknown) (unknown) (unknown) (no date) (unknown) (unknown) multivitamin with folic acid [Tab-A-Kael] 400 mcg Tablet (units unknown) (unknown) (unknown) (no date) (unknown) (unknown) number of children: 1 (units unknown) (unknown) (unknown) (no date) (unknown) (unknown) occupational status: employed (units unknown) (unknown) (unknown) (no date) (unknown) (unknown) pantoprazole 40 mg Tablet,Delayed Release (Dr/Ec) (units unknown) (unknown) (unknown) (no date) (unknown) (unknown) pantoprazole 40 mg tablet,delayed 40 mg PO 0700 #30 tabs 07/14/22 (units unknown) (unknown) (unknown) (no date) (unknown) (unknown) presence of EMS has there is a report that she had been found hallucinating and (units unknown) (unknown) (unknown) (no date) (unknown) (unknown) quetiapine 300 mg tablet 300 mg PO DAILY 07/13/22 07/13/22 (units unknown) (unknown) (unknown) (no date) (unknown) (unknown) quetiapine 300 mg tablet (units unknown) (unknown) (unknown) (no date) (unknown) (unknown) rales, or rhonchi. (units unknown) (unknown) (unknown) (no date) (unknown) (unknown) rather well until recently when she went on a bit of a [place] and had her last (units unknown) (unknown) (unknown) (no date) (unknown) (unknown) release (units unknown) (unknown) (unknown) (no date) (unknown) (unknown) second hand exposure : No (growing up as a child - not currently) (units unknown) (unknown) (unknown) (no date) (unknown) (unknown) special renee needs: No (units unknown) (unknown) (unknown) (no date) (unknown) (unknown) substance use type: does not use (units unknown) (unknown) (unknown) (no date) (unknown) (unknown) then jumped over a fence and ran to [place]. On arrival patient is largely (units unknown) (unknown) (unknown) (no date) (unknown) (unknown) thiamine mononitrate (vit B1) 100 100 mg PO DAILY #30 tabs 07/14/22 (units unknown) (unknown) (unknown) (no date) (unknown) (unknown) thiamine mononitrate (vit B1) 100 mg Tablet (units unknown) (unknown) (unknown) (no date) (unknown) (unknown) tonsillar hypertroph y or exudate. Airway patent. (units unknown) (unknown) (unknown) (no date) (unknown) (unknown) was feeling quite well and discharged home. She states that she had been doing (units unknown) (unknown) (unknown) (no date) (unknown) (unknown) weekend. She presented yesterday with agitation and anxiety along with some (units unknown) (unknown) (unknown) (no date) (unknown) (unknown) yelling at people that were not there, maintaining that a smoker or bit her and (units unknown) (unknown) Result panel 2237 (unknown) (no date) (unknown) (unknown) (no value) (units unknown) (unknown) (unknown) (no date) (unknown) (unknown) (past 8 hours): (units unknown) (unknown) (unknown) (no date) (unknown) (unknown) [id number] (units unknown) (unknown) (unknown) (no date) (unknown) (unknown) 08/01/22 08/01/22 08/01/22 (units unknown) (unknown) (unknown) (no date) (unknown) (unknown) 08/01/22 05:10 (units unknown) (unknown) (unknown) (no date) (unknown) (unknown) 08/01/22 (units unknown) (unknown) (unknown) (no date) (unknown) (unknown) 05:00 08/01/22 (units unknown) (unknown) (unknown) (no date) (unknown) (unknown) 05:10 05:10 05:10 (units unknown) (unknown) (unknown) (no date) (unknown) (unknown) 05:20 05:20 05:20 (units unknown) (unknown) (unknown) (no date) (unknown) (unknown) 07:44 (units unknown) (unknown) (unknown) (no date) (unknown) (unknown) ALT 24 (units unknown) (unknown) (unknown) (no date) (unknown) (unknown) ALT (units unknown) (unknown) (unknown) (no date) (unknown) (unknown) AST 67 H (units unknown) (unknown) (unknown) (no date) (unknown) (unknown) AST (units unknown) (unknown) (unknown) (no date) (unknown) (unknown) Acetaminophen < 10 (units unknown) (unknown) (unknown) (no date) (unknown) (unknown) Acetaminophen (units unknown) (unknown) (unknown) (no date) (unknown) (unknown) Age/Sex: 31 / F (units unknown) (unknown) (unknown) (no date) (unknown) (unknown) Albumin 4.1 (units unknown) (unknown) (unknown) (no date) (unknown) (unknown) Albumin (units unknown) (unknown) (unknown) (no date) (unknown) (unknown) Albumin/Globulin Ratio 1.5 (units unknown) (unknown) (unknown) (no date) (unknown) (unknown) Albumin/Globulin Ratio (units unknown) (unknown) (unknown) (no date) (unknown) (unknown) Alcohol withdrawal delirium, acute, hyperactive (units unknown) (unknown) (unknown) (no date) (unknown) (unknown) Alcoholism (units unknown) (unknown) (unknown) (no date) (unknown) (unknown) Alkaline Phosphatase 52 (units unknown) (unknown) (unknown) (no date) (unknown) (unknown) Alkaline Phosphatase (units unknown) (unknown) (unknown) (no date) (unknown) (unknown) Allergies (units unknown) (unknown) (unknown) (no date) (unknown) (unknown) Allergy/AdvReac Type Severity Reaction Status Date / Time (units unknown) (unknown) (unknown) (no date) (unknown) (unknown) Anemia (-2018) (units unknown) (unknown) (unknown) (no date) (unknown) (unknown) Assessment + Plan (units unknown) (unknown) (unknown) (no date) (unknown) (unknown) BUN 14 (units unknown) (unknown) (unknown) (no date) (unknown) (unknown) BUN (units unknown) (unknown) (unknown) (no date) (unknown) (unknown) BUN/Creatinine Ratio 19.4 (units unknown) (unknown) (unknown) (no date) (unknown) (unknown) BUN/Creatinine Ratio (units unknown) (unknown) (unknown) (no date) (unknown) (unknown) Baso # (Auto) 0 (units unknown) (unknown) (unknown) (no date) (unknown) (unknown) Baso # (Auto) (units unknown) (unknown) (unknown) (no date) (unknown) (unknown) Baso % (Auto) 1.5 (units unknown) (unknown) (unknown) (no date) (unknown) (unknown) Baso % (Auto) (units unknown) (unknown) (unknown) (no date) (unknown) (unknown) Blood Pressure 92/67 98/53 L (units unknown) (unknown) (unknown) (no date) (unknown) (unknown) Calcium 8.9 (units unknown) (unknown) (unknown) (no date) (unknown) (unknown) Calcium (units unknown) (unknown) (unknown) (no date) (unknown) (unknown) Carbon Dioxide 24 (units unknown) (unknown) (unknown) (no date) (unknown) (unknown) Carbon Dioxide (units unknown) (unknown) (unknown) (no date) (unknown) (unknown) Chief complaint: Altered LOC (units unknown) (unknown) (unknown) (no date) (unknown) (unknown) Chloride 104 (units unknown) (unknown) (unknown) (no date) (unknown) (unknown) Chloride (units unknown) (unknown) (unknown) (no date) (unknown) (unknown) Creatinine 0.72 (units unknown) (unknown) (unknown) (no date) (unknown) (unknown) Creatinine (units unknown) (unknown) (unknown) (no date) (unknown) (unknown) Critical Care time: (units unknown) (unknown) (unknown) (no date) (unknown) (unknown) : 1990 Acct:[id number] (units unknown) (unknown) (unknown) (no date) (unknown) (unknown) Date Patient Seen: 08/01/22 (units unknown) (unknown) (unknown) (no date) (unknown) (unknown) Date of Service: 08/01/22 (units unknown) (unknown) (unknown) (no date) (unknown) (unknown) Eos # (Auto) 100 (units unknown) (unknown) (unknown) (no date) (unknown) (unknown) Eos # (Auto) (units unknown) (unknown) (unknown) (no date) (unknown) (unknown) Eos % (Auto) 3.6 (units unknown) (unknown) (unknown) (no date) (unknown) (unknown) Eos % (Auto) (units unknown) (unknown) (unknown) (no date) (unknown) (unknown) Estimated GFR > 60 (units unknown) (unknown) (unknown) (no date) (unknown) (unknown) Estimated GFR (units unknown) (unknown) (unknown) (no date) (unknown) (unknown) Ethyl Alcohol < 10 (units unknown) (unknown) (unknown) (no date) (unknown) (unknown) Ethyl Alcohol (units unknown) (unknown) (unknown) (no date) (unknown) (unknown) Exam (units unknown) (unknown) (unknown) (no date) (unknown) (unknown) Family + Social History (units unknown) (unknown) (unknown) (no date) (unknown) (unknown) Family History (units unknown) (unknown) (unknown) (no date) (unknown) (unknown) Family/Other Alcoholism (units unknown) (unknown) (unknown) (no date) (unknown) (unknown) Family/Other Diabete s mellitus (units unknown) (unknown) (unknown) (no date) (unknown) (unknown) Father Alcoholism (units unknown) (unknown) (unknown) (no date) (unknown) (unknown) Globulin 2.7 (units unknown) (unknown) (unknown) (no date) (unknown) (unknown) Globulin (units unknown) (unknown) (unknown) (no date) (unknown) (unknown) Glucose 99 (units unknown) (unknown) (unknown) (no date) (unknown) (unknown) Glucose (units unknown) (unknown) (unknown) (no date) (unknown) (unknown) Grandfather Smoker (units unknown) (unknown) (unknown) (no date) (unknown) (unknown) Grandfather Unknown whether patient has any health problems (units unknown) (unknown) (unknown) (no date) (unknown) (unknown) Grandmother Diabetes mellitus (units unknown) (unknown) (unknown) (no date) (unknown) (unknown) Grandmother Hypoglycemia (units unknown) (unknown) (unknown) (no date) (unknown) (unknown) H/O dilation and curettage (-12/14/16) (units unknown) (unknown) (unknown) (no date) (unknown) (unknown) H/O wisdom tooth extraction () (units unknown) (unknown) (unknown) (no date) (unknown) (unknown) Hct 28.9 L (units unknown) (unknown) (unknown) (no date) (unknown) (unknown) Hct (units unknown) (unknown) (unknown) (no date) (unknown) (unknown) Hgb 9.5 L (units unknown) (unknown) (unknown) (no date) (unknown) (unknown) Hgb (units unknown) (unknown) (unknown) (no date) (unknown) (unknown) History + Physical Report (units unknown) (unknown) (unknown) (no date) (unknown) (unknown) History of Present Illness (units unknown) (unknown) (unknown) (no date) (unknown) (unknown) Home Medications and Allergies (units unknown) (unknown) (unknown) (no date) (unknown) (unknown) Home Medications (units unknown) (unknown) (unknown) (no date) (unknown) (unknown) I spent a total of [ ] minutes of critical care time on this patient's care (units unknown) (unknown) (unknown) (no date) (unknown) (unknown) INR 1.1 (units unknown) (unknown) (unknown) (no date) (unknown) (unknown) INR (units unknown) (unknown) (unknown) (no date) (unknown) (unknown) Insomnia (units unknown) (unknown) (unknown) (no date) (unknown) (unknown) [address] [address] (units unknown) (unknown) (unknown) (no date) (unknown) (unknown) Laboratory Results - last 24 hr (units unknown) (unknown) (unknown) (no date) (unknown) (unknown) Labs (units unknown) (unknown) (unknown) (no date) (unknown) (unknown) Labs: (units unknown) (unknown) (unknown) (no date) (unknown) (unknown) Lipase 337 H (units unknown) (unknown) (unknown) (no date) (unknown) (unknown) Lipase (units unknown) (unknown) (unknown) (no date) (unknown) (unknown) Lymph # (Auto) 1000 L (units unknown) (unknown) (unknown) (no date) (unknown) (unknown) Lymph # (Auto) (units unknown) (unknown) (unknown) (no date) (unknown) (unknown) Lymph % (Auto) 29.3 (units unknown) (unknown) (unknown) (no date) (unknown) (unknown) Lymph % (Auto) (units unknown) (unknown) (unknown) (no date) (unknown) (unknown) MCH 26.5 (units unknown) (unknown) (unknown) (no date) (unknown) (unknown) MCH (units unknown) (unknown) (unknown) (no date) (unknown) (unknown) MCHC 32.9 (units unknown) (unknown) (unknown) (no date) (unknown) (unknown) MCHC (units unknown) (unknown) (unknown) (no date) (unknown) (unknown) MCV 80.6 (units unknown) (unknown) (unknown) (no date) (unknown) (unknown) MCV (units unknown) (unknown) (unknown) (no date) (unknown) (unknown) Medical History (units unknown) (unknown) (unknown) (no date) (unknown) (unknown) Medication Instructions Recorded Confirmed Type (units unknown) (unknown) (unknown) (no date) (unknown) (unknown) Meds (units unknown) (unknown) (unknown) (no date) (unknown) (unknown) Menometrorrhagia (units unknown) (unknown) (unknown) (no date) (unknown) (unknown) [place] # (Auto) 300 (units unknown) (unknown) (unknown) (no date) (unknown) (unknown) [place] # (Auto) (units unknown) (unknown) (unknown) (no date) (unknown) (unknown) [place] % (Auto) 8.0 (units unknown) (unknown) (unknown) (no date) (unknown) (unknown) [place] % (Auto) (units unknown) (unknown) (unknown) (no date) (unknown) (unknown) Mother Diabetes mellitus (units unknown) (unknown) (unknown) (no date) (unknown) (unknown) Neut # (Auto) 1900 (units unknown) (unknown) (unknown) (no date) (unknown) (unknown) Neut # (Auto) (units unknown) (unknown) (unknown) (no date) (unknown) (unknown) Neut % (Auto) 57.6 (units unknown) (unknown) (unknown) (no date) (unknown) (unknown) Neut % (Auto) (units unknown) (unknown) (unknown) (no date) (unknown) (unknown) Obesity (units unknown) (unknown) (unknown) (no date) (unknown) (unknown) Objective (units unknown) (unknown) (unknown) (no date) (unknown) (unknown) Overweight (units unknown) (unknown) (unknown) (no date) (unknown) (unknown) Oxygen Delivery Method Room Air Room Air (units unknown) (unknown) (unknown) (no date) (unknown) (unknown) Oxygen Delivery Method Room Air (units unknown) (unknown) (unknown) (no date) (unknown) (unknown) PT 12.2 (units unknown) (unknown) (unknown) (no date) (unknown) (unknown) PT (units unknown) (unknown) (unknown) (no date) (unknown) (unknown) Patient History (units unknown) (unknown) (unknown) (no date) (unknown) (unknown) Patient: Sarah Connors MR#: M (units unknown) (unknown) (unknown) (no date) (unknown) (unknown) Plt Count 178 (units unknown) (unknown) (unknown) (no date) (unknown) (unknown) Plt Count (units unknown) (unknown) (unknown) (no date) (unknown) (unknown) Potassium 3.5 (units unknown) (unknown) (unknown) (no date) (unknown) (unknown) Potassium (units unknown) (unknown) (unknown) (no date) (unknown) (unknown) Provider: Jabari Sena D.O. (units unknown) (unknown) (unknown) (no date) (unknown) (unknown) Pulse Oximetry 98 98 (units unknown) (unknown) (unknown) (no date) (unknown) (unknown) Pulse Rate 76 65 (units unknown) (unknown) (unknown) (no date) (unknown) (unknown) RBC 3.59 L (units unknown) (unknown) (unknown) (no date) (unknown) (unknown) RBC (units unknown) (unknown) (unknown) (no date) (unknown) (unknown) RDW 19.7 H (units unknown) (unknown) (unknown) (no date) (unknown) (unknown) RDW (units unknown) (unknown) (unknown) (no date) (unknown) (unknown) Respiratory Rate 18 20 (units unknown) (unknown) (unknown) (no date) (unknown) (unknown) S/P myringotomy with insertion of tube (units unknown) (unknown) (unknown) (no date) (unknown) (unknown) (spontaneous vaginal delivery) (-09/05/18) (units unknown) (unknown) (unknown) (no date) (unknown) (unknown) Safety + Behavioral: (units unknown) (unknown) (unknown) (no date) (unknown) (unknown) Salicylates < 1.0 (units unknown) (unknown) (unknown) (no date) (unknown) (unknown) Salicylates (units unknown) (unknown) (unknown) (no date) (unknown) (unknown) Signed By: (units unknown) (unknown) (unknown) (no date) (unknown) (unknown) Smoker (units unknown) (unknown) (unknown) (no date) (unknown) (unknown) Smoking Status Forme r smoker (units unknown) (unknown) (unknown) (no date) (unknown) (unknown) Social History: (units unknown) (unknown) (unknown) (no date) (unknown) (unknown) Sodium 136 L (units unknown) (unknown) (unknown) (no date) (unknown) (unknown) Sodium (units unknown) (unknown) (unknown) (no date) (unknown) (unknown) Substance Use Type does not use (units unknown) (unknown) (unknown) (no date) (unknown) (unknown) Suicidal Ideation Description None (units unknown) (unknown) (unknown) (no date) (unknown) (unknown) Suicide Plan Description No Plan (units unknown) (unknown) (unknown) (no date) (unknown) (unknown) Surgical History (units unknown) (unknown) (unknown) (no date) (unknown) (unknown) Temperature 97.7 F (units unknown) (unknown) (unknown) (no date) (unknown) (unknown) Time Spent With Patient (units unknown) (unknown) (unknown) (no date) (unknown) (unknown) Tobacco + Substance use: (units unknown) (unknown) (unknown) (no date) (unknown) (unknown) Tobacco type cigarettes (units unknown) (unknown) (unknown) (no date) (unknown) (unknown) Total Bilirubin 0.7 (units unknown) (unknown) (unknown) (no date) (unknown) (unknown) Total Bilirubin (units unknown) (unknown) (unknown) (no date) (unknown) (unknown) Total Protein 6.8 (units unknown) (unknown) (unknown) (no date) (unknown) (unknown) Total Protein (units unknown) (unknown) (unknown) (no date) (unknown) (unknown) U Benzodiazepines Scrn Positive H (units unknown) (unknown) (unknown) (no date) (unknown) (unknown) U Benzodiazepines Scrn (units unknown) (unknown) (unknown) (no date) (unknown) (unknown) U Marijuana (THC) Screen Negative (units unknown) (unknown) (unknown) (no date) (unknown) (unknown) U Marijuana (THC) Screen (units unknown) (unknown) (unknown) (no date) (unknown) (unknown) U Methamphetamines Scrn Negative (units unknown) (unknown) (unknown) (no date) (unknown) (unknown) U Methamphetamines Scrn (units unknown) (unknown) (unknown) (no date) (unknown) (unknown) U Opiates 300ng/mL cut Negative (units unknown) (unknown) (unknown) (no date) (unknown) (unknown) U Opiates 300ng/mL cut (units unknown) (unknown) (unknown) (no date) (unknown) (unknown) U Tricyclic Antidepress Positive H (units unknown) (unknown) (unknown) (no date) (unknown) (unknown) U Tricyclic Antidepress (units unknown) (unknown) (unknown) (no date) (unknown) (unknown) Ur Amphetamines Screen Negative (units unknown) (unknown) (unknown) (no date) (unknown) (unknown) Ur Amphetamines Screen (units unknown) (unknown) (unknown) (no date) (unknown) (unknown) Ur Barbiturates Screen Positive H (units unknown) (unknown) (unknown) (no date) (unknown) (unknown) Ur Barbiturates Screen (units unknown) (unknown) (unknown) (no date) (unknown) (unknown) Ur Bilirubin Confirm Negative (units unknown) (unknown) (unknown) (no date) (unknown) (unknown) Ur Bilirubin Confirm (units unknown) (unknown) (unknown) (no date) (unknown) (unknown) Ur Culture Indicated ? Cult not indicated (units unknown) (unknown) (unknown) (no date) (unknown) (unknown) Ur Culture Indicated? (units unknown) (unknown) (unknown) (no date) (unknown) (unknown) Ur MDMA Scrn (Ecstasy) Negative (units unknown) (unknown) (unknown) (no date) (unknown) (unknown) Ur MDMA Scrn (Ecstasy) (units unknown) (unknown) (unknown) (no date) (unknown) (unknown) Ur Oxycodone Screen Negative (units unknown) (unknown) (unknown) (no date) (unknown) (unknown) Ur Oxycodone Screen (units unknown) (unknown) (unknown) (no date) (unknown) (unknown) Ur Phencyclidine Scr n Negative (units unknown) (unknown) (unknown) (no date) (unknown) (unknown) Ur Phencyclidine Scrn (units unknown) (unknown) (unknown) (no date) (unknown) (unknown) Ur Squamous Epith Cells 5-10 /hpf H (units unknown) (unknown) (unknown) (no date) (unknown) (unknown) Ur Squamous Epith Cells (units unknown) (unknown) (unknown) (no date) (unknown) (unknown) Urine Bacteria Few (2-10) H (units unknown) (unknown) (unknown) (no date) (unknown) (unknown) Urine Bacteria (units unknown) (unknown) (unknown) (no date) (unknown) (unknown) Urine Cocaine Screen Negative (units unknown) (unknown) (unknown) (no date) (unknown) (unknown) Urine Cocaine Screen (units unknown) (unknown) (unknown) (no date) (unknown) (unknown) Urine Methadone Screen Negative (units unknown) (unknown) (unknown) (no date) (unknown) (unknown) Urine Methadone Screen (units unknown) (unknown) (unknown) (no date) (unknown) (unknown) Urine Mucus 3+ H D (units unknown) (unknown) (unknown) (no date) (unknown) (unknown) Urine Mucus (units unknown) (unknown) (unknown) (no date) (unknown) (unknown) Urine RBC None seen (units unknown) (unknown) (unknown) (no date) (unknown) (unknown) Urine RBC (units unknown) (unknown) (unknown) (no date) (unknown) (unknown) Urine WBC 1-5/hpf (units unknown) (unknown) (unknown) (no date) (unknown) (unknown) Urine WBC (units unknown) (unknown) (unknown) (no date) (unknown) (unknown) Vital Signs (units unknown) (unknown) (unknown) (no date) (unknown) (unknown) WBC 3.3 L (units unknown) (unknown) (unknown) (no date) (unknown) (unknown) WBC (units unknown) (unknown) (unknown) (no date) (unknown) (unknown) [Embedded Image Not Available] (units unknown) (unknown) (unknown) (no date) (unknown) (unknown) [METOCLOPRAMIDE] (units unknown) (unknown) (unknown) (no date) (unknown) (unknown) alcohol intake former (units unknown) (unknown) (unknown) (no date) (unknown) (unknown) alcohol intake frequency 3 or more drinks per day (units unknown) (unknown) (unknown) (no date) (unknown) (unknown) fluoxetine 10 mg capsule 10 mg PO DAILY 07/13/22 07/13/22 History (units unknown) (unknown) (unknown) (no date) (unknown) (unknown) household members children (units unknown) (unknown) (unknown) (no date) (unknown) (unknown) hydrocodone [HYDROCODONE] AdvReac Unknown VOMITING Verified 07/12/22 16:18 (units unknown) (unknown) (unknown) (no date) (unknown) (unknown) hydroxyzine HCl 50 m g tablet 50 mg PO DAILY 07/13/22 07/13/22 History (units unknown) (unknown) (unknown) (no date) (unknown) (unknown) mcg tablet (Tab-A-Kael) (units unknown) (unknown) (unknown) (no date) (unknown) (unknown) metoclopramide Allergy Mild RASH/HIVES Verified 07/12/22 16:18 (units unknown) (unknown) (unknown) (no date) (unknown) (unknown) mg tablet (units unknown) (unknown) (unknown) (no date) (unknown) (unknown) multivitamin with folic acid 400 1 tab PO DAILY #30 tabs 07/14/22 Rx (units unknown) (unknown) (unknown) (no date) (unknown) (unknown) pantoprazole 40 mg tablet,delayed 40 mg PO 0700 #30 tabs 07/14/22 Rx (units unknown) (unknown) (unknown) (no date) (unknown) (unknown) quetiapine 300 mg tablet 300 mg PO DAILY 07/13/22 07/13/22 History (units unknown) (unknown) (unknown) (no date) (unknown) (unknown) release (units unknown) (unknown) (unknown) (no date) (unknown) (unknown) thiamine mononitrate (vit B1) 100 100 mg PO DAILY #30 tabs 07/14/22 Rx (units unknown) (unknown) (unknown) (no date) (unknown) (unknown) today; this time is exclusive of procedural time. (units unknown) (unknown) Result panel 2238 (unknown) (no date) (unknown) (unknown) (no value) (units unknown) (unknown) (unknown) (no date) (unknown) (unknown) <Electronically signed by Will Benitez D.O.> (units unknown) (unknown) (unknown) (no date) (unknown) (unknown) <Reinaldo Arthur DO - Last Filed: 08/01/22 06:03> (units unknown) (unknown) (unknown) (no date) (unknown) (unknown) <Will Benitez, DO - Last Filed: 08/01/22 08:19> (units unknown) (unknown) (unknown) (no date) (unknown) (unknown) [id number] (units unknown) (unknown) (unknown) (no date) (unknown) (unknown) 08/01/22 08/01/22 08/01/22 Range/Units (units unknown) (unknown) (unknown) (no date) (unknown) (unknown) 08/01/22 05:10 (units unknown) (unknown) (unknown) (no date) (unknown) (unknown) 08/01/22 05:20 (units unknown) (unknown) (unknown) (no date) (unknown) (unknown) 08/01/22 07:42 (units unknown) (unknown) (unknown) (no date) (unknown) (unknown) 08/01/22 0819 (units unknown) (unknown) (unknown) (no date) (unknown) (unknown) 08/01/22 08:05 (units unknown) (unknown) (unknown) (no date) (unknown) (unknown) 08/01/22 08:13 (units unknown) (unknown) (unknown) (no date) (unknown) (unknown) 08/01/22 (units unknown) (unknown) (unknown) (no date) (unknown) (unknown) 08/02/22 05:00 (units unknown) (unknown) (unknown) (no date) (unknown) (unknown) 08/03/22 05:00 (units unknown) (unknown) (unknown) (no date) (unknown) (unknown) 08/04/22 05:00 (units unknown) (unknown) (unknown) (no date) (unknown) (unknown) 05:00 08/01/22 (units unknown) (unknown) (unknown) (no date) (unknown) (unknown) 05:10 05:10 05:10 (units unknown) (unknown) (unknown) (no date) (unknown) (unknown) 05:20 05:20 05:20 (units unknown) (unknown) (unknown) (no date) (unknown) (unknown) 07:44 (units unknown) (unknown) (unknown) (no date) (unknown) (unknown) 12 point review of systems is negative except for those stated above (units unknown) (unknown) (unknown) (no date) (unknown) (unknown) 2.0 mg/dl (unknown) (unknown) (no date) (unknown) (unknown) 2.0 mg/dl (unknown) (unknown) (no date) (unknown) (unknown) 31-year-old female former smoker with extensive history of alcohol abuse returns (units unknown) (unknown) (unknown) (no date) (unknown) (unknown) ALT (<35) IU/L (units unknown) (unknown) (unknown) (no date) (unknown) (unknown) ALT 24 (<35) IU/L (units unknown) (unknown) (unknown) (no date) (unknown) (unknown) AST (14-36) IU/L (units unknown) (unknown) (unknown) (no date) (unknown) (unknown) AST 67 H (14-36) IU/L (units unknown) (unknown) (unknown) (no date) (unknown) (unknown) Acetaminophen < 10 (10-30) ug/mL (units unknown) (unknown) (unknown) (no date) (unknown) (unknown) Acetaminophen (10-30 ) ug/mL (units unknown) (unknown) (unknown) (no date) (unknown) (unknown) Acetaminophen (Acetaminophen 325 Mg Tablet) 650 mg PO Q6H PRN (units unknown) (unknown) (unknown) (no date) (unknown) (unknown) Acetaminophen Stat (units unknown) (unknown) (unknown) (no date) (unknown) (unknown) Admin: 08/01/22 06:3 0 Dose: 1,000 mls/hr (units unknown) (unknown) (unknown) (no date) (unknown) (unknown) Admin: 08/01/22 07:4 5 Dose: 408 mls/hr (units unknown) (unknown) (unknown) (no date) (unknown) (unknown) Age/Sex: 31 / F (units unknown) (unknown) (unknown) (no date) (unknown) (unknown) Albumin (3.5-5.0) g/dL (units unknown) (unknown) (unknown) (no date) (unknown) (unknown) Albumin 4.1 (3.5-5.0 ) g/dL (units unknown) (unknown) (unknown) (no date) (unknown) (unknown) Albumin/Globulin Ratio (1.0-2.8) (units unknown) (unknown) (unknown) (no date) (unknown) (unknown) Albumin/Globulin Ratio 1.5 (1.0-2.8) (units unknown) (unknown) (unknown) (no date) (unknown) (unknown) Alcohol withdrawal delirium, acute, hyperactive (units unknown) (unknown) (unknown) (no date) (unknown) (unknown) Alcohol withdrawal, Alcohol use disorder (units unknown) (unknown) (unknown) (no date) (unknown) (unknown) Alcoholism (units unknown) (unknown) (unknown) (no date) (unknown) (unknown) Alkaline Phosphatase (38-126) U/L (units unknown) (unknown) (unknown) (no date) (unknown) (unknown) Alkaline Phosphatase 52 (38-126) U/L (units unknown) (unknown) (unknown) (no date) (unknown) (unknown) Allergies (units unknown) (unknown) (unknown) (no date) (unknown) (unknown) Allergy/AdvReac Type Severity Reaction Status Date / Time (units unknown) (unknown) (unknown) (no date) (unknown) (unknown) Anemia (-2018) (units unknown) (unknown) (unknown) (no date) (unknown) (unknown) BACK: Nontender without deformity or crepitance. No flank tenderness. (units unknown) (unknown) (unknown) (no date) (unknown) (unknown) BMP [Basic Metabolic Panel] DAILY (units unknown) (unknown) (unknown) (no date) (unknown) (unknown) BUN (7-17) mg/dL (units unknown) (unknown) (unknown) (no date) (unknown) (unknown) BUN 14 (7-17) mg/dL (units unknown) (unknown) (unknown) (no date) (unknown) (unknown) BUN/Creatinine Ratio (6-22) (units unknown) (unknown) (unknown) (no date) (unknown) (unknown) BUN/Creatinine Ratio 19.4 (6-22) (units unknown) (unknown) (unknown) (no date) (unknown) (unknown) Baso # (Auto) (0-100 ) /uL (units unknown) (unknown) (unknown) (no date) (unknown) (unknown) Baso # (Auto) 0 (0-100) /uL (units unknown) (unknown) (unknown) (no date) (unknown) (unknown) Baso % (Auto) (0-2) % (units unknown) (unknown) (unknown) (no date) (unknown) (unknown) Baso % (Auto) 1.5 (0-2) % (units unknown) (unknown) (unknown) (no date) (unknown) (unknown) Bedside Urine Bilirubin + 1 (units unknown) (unknown) (unknown) (no date) (unknown) (unknown) Bedside Urine Glucos e Negative (units unknown) (unknown) (unknown) (no date) (unknown) (unknown) Bedside Urine Ketone +/- 5 (units unknown) (unknown) (unknown) (no date) (unknown) (unknown) Bedside Urine Leukocytes - Negative (units unknown) (unknown) (unknown) (no date) (unknown) (unknown) Bedside Urine Nitrit e - Negative (units unknown) (unknown) (unknown) (no date) (unknown) (unknown) Bedside Urine Occult Blood - Negative (units unknown) (unknown) (unknown) (no date) (unknown) (unknown) Bedside Urine Protei n +/- 15 (units unknown) (unknown) (unknown) (no date) (unknown) (unknown) Bedside Urine Urobilinogen - Negative (units unknown) (unknown) (unknown) (no date) (unknown) (unknown) Bedside Urine pH 6.0 (units unknown) (unknown) (unknown) (no date) (unknown) (unknown) Blood Pressure 92/67 08/01/22 05:00 (units unknown) (unknown) (unknown) (no date) (unknown) (unknown) Blood Pressure /67 98/53 L (units unknown) (unknown) (unknown) (no date) (unknown) (unknown) CARDIOVASCULAR: Regular rate and rhythm without murmurs, gallops, or rubs. (units unknown) (unknown) (unknown) (no date) (unknown) (unknown) CARDIOVASCULAR: See HPI (units unknown) (unknown) (unknown) (no date) (unknown) (unknown) CBC Auto Diff [Complete Blood Count AUTO DIFF] DAILY (units unknown) (unknown) (unknown) (no date) (unknown) (unknown) COVID19 -Nasal RAPID Stat (units unknown) (unknown) (unknown) (no date) (unknown) (unknown) CT head/brain wo con Stat (units unknown) (unknown) (unknown) (no date) (unknown) (unknown) Calcium (8.4-10.2) mg/dL (units unknown) (unknown) (unknown) (no date) (unknown) (unknown) Calcium 8.9 (8.4-10.2) mg/dL (units unknown) (unknown) (unknown) (no date) (unknown) (unknown) Carbon Dioxide (22-32) mmol/L (units unknown) (unknown) (unknown) (no date) (unknown) (unknown) Carbon Dioxide 24 (22-32) mmol/L (units unknown) (unknown) (unknown) (no date) (unknown) (unknown) Chief Complaint: Psychiatric Symptoms (units unknown) (unknown) (unknown) (no date) (unknown) (unknown) Chlordiazepoxide HCl (Chlordiazepoxide 25 Mg Capsule) 50 mg PO Q6HR SANDY (units unknown) (unknown) (unknown) (no date) (unknown) (unknown) Chloride (98-107) mmol/L (units unknown) (unknown) (unknown) (no date) (unknown) (unknown) Chloride 104 (98-107 ) mmol/L (units unknown) (unknown) (unknown) (no date) (unknown) (unknown) Clinical Impression: (units unknown) (unknown) (unknown) (no date) (unknown) (unknown) Complete Blood Count AUTO DIFF Stat (units unknown) (unknown) (unknown) (no date) (unknown) (unknown) Comprehensive Metabolic Panel Stat (units unknown) (unknown) (unknown) (no date) (unknown) (unknown) 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 (units unknown) (unknown) (unknown) (no date) (unknown) (unknown) Consult to 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 (units unknown) (unknown) (unknown) (no date) (unknown) (unknown) Course (units unknown) (unknown) (unknown) (no date) (unknown) (unknown) Creatinine (0.52-1.04) mg/dL (units unknown) (unknown) (unknown) (no date) (unknown) (unknown) Creatinine 0.72 (0.52-1.04) mg/dL (units unknown) (unknown) (unknown) (no date) (unknown) (unknown) : 1990 Acct:[id number] (units unknown) (unknown) (unknown) (no date) (unknown) (unknown) Date of Service: 08/01/22 (units unknown) (unknown) (unknown) (no date) (unknown) (unknown) Departure (units unknown) (unknown) (unknown) (no date) (unknown) (unknown) Discharge Plan (units unknown) (unknown) (unknown) (no date) (unknown) (unknown) Discontinued Medications (units unknown) (unknown) (unknown) (no date) (unknown) (unknown) Documented By: AT (units unknown) (unknown) (unknown) (no date) (unknown) (unknown) Documented By: KB (units unknown) (unknown) (unknown) (no date) (unknown) (unknown) Documented By: ISAIAS (units unknown) (unknown) (unknown) (no date) (unknown) (unknown) Dr Benitez: Received turned over. Reviewed patient's history physical exam and (units unknown) (unknown) (unknown) (no date) (unknown) (unknown) ED Orders (units unknown) (unknown) (unknown) (no date) (unknown) (unknown) ENT: Nose without bleeding, purulent drainage. Throat without erythema, (units unknown) (unknown) (unknown) (no date) (unknown) (unknown) ER Physician: Will Benitez D.O. (units unknown) (unknown) (unknown) (no date) (unknown) (unknown) EXTREMITIES: No imelda a or joint tenderness. Tremulous with arms extended (units unknown) (unknown) (unknown) (no date) (unknown) (unknown) EYES: Pupils equal round and reactive. Extraocular motions intact. No scleral (units unknown) (unknown) (unknown) (no date) (unknown) (unknown) Emergency Report (units unknown) (unknown) (unknown) (no date) (unknown) (unknown) Eos # (Auto) (0-450) /uL (units unknown) (unknown) (unknown) (no date) (unknown) (unknown) Eos # (Auto) 100 (0-450) /uL (units unknown) (unknown) (unknown) (no date) (unknown) (unknown) Eos % (Auto) (2-4) % (units unknown) (unknown) (unknown) (no date) (unknown) (unknown) Eos % (Auto) 3.6 (2-4) % (units unknown) (unknown) (unknown) (no date) (unknown) (unknown) Esterase (units unknown) (unknown) (unknown) (no date) (unknown) (unknown) Estimated GFR > 60 (>60) mL/min (units unknown) (unknown) (unknown) (no date) (unknown) (unknown) Estimated GFR (>60) mL/min (units unknown) (unknown) (unknown) (no date) (unknown) (unknown) Ethanol (ETOH) Stat (units unknown) (unknown) (unknown) (no date) (unknown) (unknown) Ethyl Alcohol < 10 ( - 10) mg/dL (units unknown) (unknown) (unknown) (no date) (unknown) (unknown) Ethyl Alcohol ( - 10 ) mg/dL (units unknown) (unknown) (unknown) (no date) (unknown) (unknown) Exam Narrative: (units unknown) (unknown) (unknown) (no date) (unknown) (unknown) Exam (units unknown) (unknown) (unknown) (no date) (unknown) (unknown) Family History (units unknown) (unknown) (unknown) (no date) (unknown) (unknown) Family/Other Alcoholism (units unknown) (unknown) (unknown) (no date) (unknown) (unknown) Family/Other Diabete s mellitus (units unknown) (unknown) (unknown) (no date) (unknown) (unknown) Father Alcoholism (units unknown) (unknown) (unknown) (no date) (unknown) (unknown) Fluoxetine HCl (Fluoxetine 10 Mg Capsule) 10 mg PO DAILY SANDY (units unknown) (unknown) (unknown) (no date) (unknown) (unknown) Folic Acid (Folic Acid 1 Mg Tablet) 1 mg PO DAILY SANDY (units unknown) (unknown) (unknown) (no date) (unknown) (unknown) GASTROINTESTINAL: Abdomen soft, non-tender, nondistended. (units unknown) (unknown) (unknown) (no date) (unknown) (unknown) GASTROINTESTINAL: Denies nausea, vomiting, abdominal pain, diarrhea, (units unknown) (unknown) (unknown) (no date) (unknown) (unknown) GENERAL: Denies chills, fatigue, malaise, fever, sweats. (units unknown) (unknown) (unknown) (no date) (unknown) (unknown) GENERAL: [31] year old patient appears stated age. Well-developed patient, in (units unknown) (unknown) (unknown) (no date) (unknown) (unknown) : Denies dysuria, frequency, incontinence, hematuria, urinary retention. (units unknown) (unknown) (unknown) (no date) (unknown) (unknown) General (units unknown) (unknown) (unknown) (no date) (unknown) (unknown) Globulin (1.7-4.1) g/dL (units unknown) (unknown) (unknown) (no date) (unknown) (unknown) Globulin 2.7 (1.7-4.1) g/dL (units unknown) (unknown) (unknown) (no date) (unknown) (unknown) Glucose (70-100) mg/dL (units unknown) (unknown) (unknown) (no date) (unknown) (unknown) Glucose 99 (70-100) mg/dL (units unknown) (unknown) (unknown) (no date) (unknown) (unknown) Grandfather Smoker (units unknown) (unknown) (unknown) (no date) (unknown) (unknown) Grandfather Unknown whether patient has any health problems (units unknown) (unknown) (unknown) (no date) (unknown) (unknown) Grandmother Diabetes mellitus (units unknown) (unknown) (unknown) (no date) (unknown) (unknown) Grandmother Hypoglycemia (units unknown) (unknown) (unknown) (no date) (unknown) (unknown) H/O dilation and curettage (-12/14/16) (units unknown) (unknown) (unknown) (no date) (unknown) (unknown) H/O wisdom tooth extraction () (units unknown) (unknown) (unknown) (no date) (unknown) (unknown) HEAD: Atraumatic. Normocephalic. (units unknown) (unknown) (unknown) (no date) (unknown) (unknown) HEENT: Denies sinus pain, ear pain, sore throat, difficulty swallowing, (units unknown) (unknown) (unknown) (no date) (unknown) (unknown) HPI - Altered Mental Status (units unknown) (unknown) (unknown) (no date) (unknown) (unknown) HPI narrative: (units unknown) (unknown) (unknown) (no date) (unknown) (unknown) Hct (36-46) % (units unknown) (unknown) (unknown) (no date) (unknown) (unknown) Hct 28.9 L (36-46) % (units unknown) (unknown) (unknown) (no date) (unknown) (unknown) Hgb (12.0-16.0) g/dL (units unknown) (unknown) (unknown) (no date) (unknown) (unknown) Hgb 9.5 L (12.0-16.0 ) g/dL (units unknown) (unknown) (unknown) (no date) (unknown) (unknown) History of Present Illness (units unknown) (unknown) (unknown) (no date) (unknown) (unknown) Home Medications (units unknown) (unknown) (unknown) (no date) (unknown) (unknown) Hydroxyzine Pamoate (Hydroxyzine Pamoate 25 Mg Capsule) 50 mg PO DAILY SANDY (units unknown) (unknown) (unknown) (no date) (unknown) (unknown) INR (0.9-1.3) (units unknown) (unknown) (unknown) (no date) (unknown) (unknown) INR 1.1 (0.9-1.3) (units unknown) (unknown) (unknown) (no date) (unknown) (unknown) Ictotest Urine Stat (units unknown) (unknown) (unknown) (no date) (unknown) (unknown) Initial Vital Signs (units unknown) (unknown) (unknown) (no date) (unknown) (unknown) Initial Vital Signs: (units unknown) (unknown) (unknown) (no date) (unknown) (unknown) Insomnia (units unknown) (unknown) (unknown) (no date) (unknown) (unknown) [address] [address] (units unknown) (unknown) (unknown) (no date) (unknown) (unknown) Lab Data (units unknown) (unknown) (unknown) (no date) (unknown) (unknown) Lab Results (units unknown) (unknown) (unknown) (no date) (unknown) (unknown) Labs: (units unknown) (unknown) (unknown) (no date) (unknown) (unknown) Last Admin: 08/01/22 06:31 Dose: 260 mg (units unknown) (unknown) (unknown) (no date) (unknown) (unknown) Last Admin: 08/01/22 07:45 Dose: 1 mg (units unknown) (unknown) (unknown) (no date) (unknown) (unknown) Last Admin: 08/01/22 08:09 Dose: 2 mg (units unknown) (unknown) (unknown) (no date) (unknown) (unknown) Last Admin: 08/01/22 08:10 Dose: Not Given (units unknown) (unknown) (unknown) (no date) (unknown) (unknown) Last Infusion: 08/01/22 08:03 Dose: 0 mls/hr (units unknown) (unknown) (unknown) (no date) (unknown) (unknown) Last Infusion: 08/01/22 08:09 Dose: 0 mls/hr (units unknown) (unknown) (unknown) (no date) (unknown) (unknown) Lipase (23-300) U/L (units unknown) (unknown) (unknown) (no date) (unknown) (unknown) Lipase 337 H (23-300 ) U/L (units unknown) (unknown) (unknown) (no date) (unknown) (unknown) Lipase Stat (units unknown) (unknown) (unknown) (no date) (unknown) (unknown) Lorazepam (Lorazepam 1 Mg Tablet) 0 mg PO CIWAPRN PRN; Protocol (units unknown) (unknown) (unknown) (no date) (unknown) (unknown) Lorazepam (Lorazepam 2 Mg/Ml Inj) 0 mg IV CIWAPRN PRN; Protocol (units unknown) (unknown) (unknown) (no date) (unknown) (unknown) Lorazepam (Lorazepam 2 Mg/Ml Inj) 1 mg IV NOW ONE (units unknown) (unknown) (unknown) (no date) (unknown) (unknown) Lorazepam (Lorazepam 2 Mg/Ml Inj) 2 mg IV NOW ONE (units unknown) (unknown) (unknown) (no date) (unknown) (unknown) Lymph # (Auto) (8412-8718) /uL (units unknown) (unknown) (unknown) (no date) (unknown) (unknown) Lymph # (Auto) 1000 L (6238-5566) /uL (units unknown) (unknown) (unknown) (no date) (unknown) (unknown) Lymph % (Auto) (25-40) % (units unknown) (unknown) (unknown) (no date) (unknown) (unknown) Lymph % (Auto) 29.3 (25-40) % (units unknown) (unknown) (unknown) (no date) (unknown) (unknown) MCH (26-34) PG (units unknown) (unknown) (unknown) (no date) (unknown) (unknown) MCH 26.5 (26-34) PG (units unknown) (unknown) (unknown) (no date) (unknown) (unknown) MCHC (30-36) % (units unknown) (unknown) (unknown) (no date) (unknown) (unknown) MCHC 32.9 (30-36) % (units unknown) (unknown) (unknown) (no date) (unknown) (unknown) MCV (80-100) fL (units unknown) (unknown) (unknown) (no date) (unknown) (unknown) MCV 80.6 (80-100) fL (units unknown) (unknown) (unknown) (no date) (unknown) (unknown) MDM - Altered Mental Status (units unknown) (unknown) (unknown) (no date) (unknown) (unknown) MDM Narrative (units unknown) (unknown) (unknown) (no date) (unknown) (unknown) MUSCULOSKELETAL: denies weakness, joint pain, or bony pain (units unknown) (unknown) (unknown) (no date) (unknown) (unknown) Magnesium Urgent (units unknown) (unknown) (unknown) (no date) (unknown) (unknown) Medical History (units unknown) (unknown) (unknown) (no date) (unknown) (unknown) Medical decision making narrative: (units unknown) (unknown) (unknown) (no date) (unknown) (unknown) Medication Instructions Recorded Confirmed (units unknown) (unknown) (unknown) (no date) (unknown) (unknown) Medication Instructions Recorded (units unknown) (unknown) (unknown) (no date) (unknown) (unknown) Menometrorrhagia (units unknown) (unknown) (unknown) (no date) (unknown) (unknown) [place] # (Auto) (0-900 ) /uL (units unknown) (unknown) (unknown) (no date) (unknown) (unknown) [place] # (Auto) 300 (0-900) /uL (units unknown) (unknown) (unknown) (no date) (unknown) (unknown) [place] % (Auto) (3-14) % (units unknown) (unknown) (unknown) (no date) (unknown) (unknown) [place] % (Auto) 8.0 (3-14) % (units unknown) (unknown) (unknown) (no date) (unknown) (unknown) Mother Diabetes mellitus (units unknown) (unknown) (unknown) (no date) (unknown) (unknown) Multivitamins (Multivitamin 1 Tablet) 1 tab PO DAILY SANDY (units unknown) (unknown) (unknown) (no date) (unknown) (unknown) NECK: Trachea midline. Non tender (units unknown) (unknown) (unknown) (no date) (unknown) (unknown) NEURO: AOx3. Cranial nerves 2-12 grossly intact (units unknown) (unknown) (unknown) (no date) (unknown) (unknown) NEUROLOGIC: See HPI (units unknown) (unknown) (unknown) (no date) (unknown) (unknown) Naloxone HCl (Naloxone 0.4 Mg/Ml Vial) 0.2 mg IV Q2MIN PRN (units unknown) (unknown) (unknown) (no date) (unknown) (unknown) Narrative (units unknown) (unknown) (unknown) (no date) (unknown) (unknown) Narrative: (units unknown) (unknown) (unknown) (no date) (unknown) (unknown) Neut # (Auto) (1694-2476) /uL (units unknown) (unknown) (unknown) (no date) (unknown) (unknown) Neut # (Auto) 1900 (2432-3092) /uL (units unknown) (unknown) (unknown) (no date) (unknown) (unknown) Neut % (Auto) (50-75 ) % (units unknown) (unknown) (unknown) (no date) (unknown) (unknown) Neut % (Auto) 57.6 (50-75) % (units unknown) (unknown) (unknown) (no date) (unknown) (unknown) Obesity (units unknown) (unknown) (unknown) (no date) (unknown) (unknown) Ondansetron HCl (Ondansetron 4 Mg/2 Ml Inj) 4 mg IV Q6HR PRN (units unknown) (unknown) (unknown) (no date) (unknown) (unknown) Ordered: (units unknown) (unknown) (unknown) (no date) (unknown) (unknown) Orders (units unknown) (unknown) (unknown) (no date) (unknown) (unknown) Overweight (units unknown) (unknown) (unknown) (no date) (unknown) (unknown) Oxygen Delivery Method Room Air 08/01/22 05:00 (units unknown) (unknown) (unknown) (no date) (unknown) (unknown) Oxygen Delivery Method Room Air Room Air (units unknown) (unknown) (unknown) (no date) (unknown) (unknown) PRN Reason: Alcohol Withdrawal (units unknown) (unknown) (unknown) (no date) (unknown) (unknown) PRN Reason: Constipation (units unknown) (unknown) (unknown) (no date) (unknown) (unknown) PRN Reason: Fever/Mild Pain (1-3) (units unknown) (unknown) (unknown) (no date) (unknown) (unknown) PRN Reason: Nausea And Vomiting (units unknown) (unknown) (unknown) (no date) (unknown) (unknown) PRN Reason: Opiate Reversal (units unknown) (unknown) (unknown) (no date) (unknown) (unknown) PRN (units unknown) (unknown) (unknown) (no date) (unknown) (unknown) PSYCHIATRIC: No concerning psychosocial issues. (units unknown) (unknown) (unknown) (no date) (unknown) (unknown) PT (10.1-12.7) SECONDS (units unknown) (unknown) (unknown) (no date) (unknown) (unknown) PT 12.2 (10.1-12.7) SECONDS (units unknown) (unknown) (unknown) (no date) (unknown) (unknown) Pantoprazole Sodium (Pantoprazole 40 Mg Vial) 40 mg IV DAILY SANDY (units unknown) (unknown) (unknown) (no date) (unknown) (unknown) Patient Disposition: Admitted As Inpatient (units unknown) (unknown) (unknown) (no date) (unknown) (unknown) Patient History (units unknown) (unknown) (unknown) (no date) (unknown) (unknown) Patient: Sarah Connors MR#: M (units unknown) (unknown) (unknown) (no date) (unknown) (unknown) Phenobarbital (Phenobarbital 65 Mg/Ml Vial) 260 mg IV NOW ONE (units unknown) (unknown) (unknown) (no date) (unknown) (unknown) Phenobarbital (Phenobarbital 65 Mg/Ml Vial) 60 mg IV BID SANDY (units unknown) (unknown) (unknown) (no date) (unknown) (unknown) Plt Count (150-400) X103/uL (units unknown) (unknown) (unknown) (no date) (unknown) (unknown) Plt Count 178 (150-400) X103/uL (units unknown) (unknown) (unknown) (no date) (unknown) (unknown) Point of Care Testing (units unknown) (unknown) (unknown) (no date) (unknown) (unknown) Polyethylene Glycol (Polyethylene Glycol 3350 17 Gm Powd.Pack) 17 gm PO DAILY (units unknown) (unknown) (unknown) (no date) (unknown) (unknown) Potassium (3.4-5.1) mmol/L (units unknown) (unknown) (unknown) (no date) (unknown) (unknown) Potassium 3.5 (3.4-5.1) mmol/L (units unknown) (unknown) (unknown) (no date) (unknown) (unknown) Test Results Negative (units unknown) (unknown) (unknown) (no date) (unknown) (unknown) Previous Rx's (units unknown) (unknown) (unknown) (no date) (unknown) (unknown) Prothrombin Time INR Stat (units unknown) (unknown) (unknown) (no date) (unknown) (unknown) Pulse Oximetry 98 08/01/22 05:00 (units unknown) (unknown) (unknown) (no date) (unknown) (unknown) Pulse Oximetry 98 98 (units unknown) (unknown) (unknown) (no date) (unknown) (unknown) Pulse Rate 76 08/01/22 05:00 (units unknown) (unknown) (unknown) (no date) (unknown) (unknown) Pulse Rate 76 65 (units unknown) (unknown) (unknown) (no date) (unknown) (unknown) Pyridoxine HCl (Pyridoxine 100 Mg/Ml Vial) 100 mg IV DAILY SANDY (units unknown) (unknown) (unknown) (no date) (unknown) (unknown) RBC (4.0-5.2) X106/uL (units unknown) (unknown) (unknown) (no date) (unknown) (unknown) RBC 3.59 L (4.0-5.2) X106/uL (units unknown) (unknown) (unknown) (no date) (unknown) (unknown) RDW (11.6-14.8) % (units unknown) (unknown) (unknown) (no date) (unknown) (unknown) RDW 19.7 H (11.6-14.8) % (units unknown) (unknown) (unknown) (no date) (unknown) (unknown) RESPIRATORY: Clear t o auscultation. Breath sounds equal bilaterally. No wheezes, (units unknown) (unknown) (unknown) (no date) (unknown) (unknown) RESPIRATORY: Denies dyspnea, cough, wheezing, hemoptysis, sputum. (units unknown) (unknown) (unknown) (no date) (unknown) (unknown) Related Data (units unknown) (unknown) (unknown) (no date) (unknown) (unknown) Respiratory Rate 18 08/01/22 05:00 (units unknown) (unknown) (unknown) (no date) (unknown) (unknown) Respiratory Rate 18 20 (units unknown) (unknown) (unknown) (no date) (unknown) (unknown) Review of Systems (units unknown) (unknown) (unknown) (no date) (unknown) (unknown) S/P myringotomy with insertion of tube (units unknown) (unknown) (unknown) (no date) (unknown) (unknown) SKIN: Denies rash, skin lesions, or other (units unknown) (unknown) (unknown) (no date) (unknown) (unknown) SKIN: No rash or erythema of visible areas (units unknown) (unknown) (unknown) (no date) (unknown) (unknown) (spontaneous vaginal delivery) (-09/05/18) (units unknown) (unknown) (unknown) (no date) (unknown) (unknown) Salicylate Stat (units unknown) (unknown) (unknown) (no date) (unknown) (unknown) Salicylates < 1.0 (<20) mg/dL (units unknown) (unknown) (unknown) (no date) (unknown) (unknown) Salicylates (<20) mg/dL (units unknown) (unknown) (unknown) (no date) (unknown) (unknown) Sennosides (Sennosides 8.6 Mg Tablet) 8.6 mg PO BID PRN (units unknown) (unknown) (unknown) (no date) (unknown) (unknown) Signed By: (units unknown) (unknown) (unknown) (no date) (unknown) (unknown) Smoker (units unknown) (unknown) (unknown) (no date) (unknown) (unknown) Smoking Status: Former smoker (units unknown) (unknown) (unknown) (no date) (unknown) (unknown) Social History (units unknown) (unknown) (unknown) (no date) (unknown) (unknown) Sodium (137-145) mmol/L (units unknown) (unknown) (unknown) (no date) (unknown) (unknown) Sodium 136 L (137-145) mmol/L (units unknown) (unknown) (unknown) (no date) (unknown) (unknown) Sodium Chloride (Normal Saline 0.9%) 2,000 mls @ 1,000 mls/hr IV BOLUS ONE (units unknown) (unknown) (unknown) (no date) (unknown) (unknown) Stated Complaint: Altered LOC (units unknown) (unknown) (unknown) (no date) (unknown) (unknown) Stop: 08/01/22 05:56 (units unknown) (unknown) (unknown) (no date) (unknown) (unknown) Stop: 08/01/22 06:12 (units unknown) (unknown) (unknown) (no date) (unknown) (unknown) Stop: 08/01/22 07:36 (units unknown) (unknown) (unknown) (no date) (unknown) (unknown) Stop: 08/01/22 08:05 (units unknown) (unknown) (unknown) (no date) (unknown) (unknown) Stop: 08/01/22 08:08 (units unknown) (unknown) (unknown) (no date) (unknown) (unknown) Substance Use Type: does not use (units unknown) (unknown) (unknown) (no date) (unknown) (unknown) Surgical History (units unknown) (unknown) (unknown) (no date) (unknown) (unknown) TITRATE SANDY; Protocol (units unknown) (unknown) (unknown) (no date) (unknown) (unknown) TSH w/ Reflex to FT4 Urgent (units unknown) (unknown) (unknown) (no date) (unknown) (unknown) Temperature 97.7 F 08/01/22 05:00 (units unknown) (unknown) (unknown) (no date) (unknown) (unknown) Temperature 97.7 F (units unknown) (unknown) (unknown) (no date) (unknown) (unknown) Thiamine HCl 100 mg/ Sodium (Chloride) 101 mls @ 404 mls/hr IV DAILY SANDY (units unknown) (unknown) (unknown) (no date) (unknown) (unknown) Thiamine HCl 200 mg/ Sodium (Chloride) 102 mls @ 408 mls/hr IV NOW ONE (units unknown) (unknown) (unknown) (no date) (unknown) (unknown) Time Seen by Provider: 08/01/22 05:45 (units unknown) (unknown) (unknown) (no date) (unknown) (unknown) Total Bilirubin (0.2-1.3) mg/dL (units unknown) (unknown) (unknown) (no date) (unknown) (unknown) Total Bilirubin 0.7 (0.2-1.3) mg/dL (units unknown) (unknown) (unknown) (no date) (unknown) (unknown) Total Protein (6.3-8.2) g/dL (units unknown) (unknown) (unknown) (no date) (unknown) (unknown) Total Protein 6.8 (6.3-8.2) g/dL (units unknown) (unknown) (unknown) (no date) (unknown) (unknown) U Benzodiazepines Scrn (Negative) (units unknown) (unknown) (unknown) (no date) (unknown) (unknown) U Benzodiazepines Scrn Positive H (Negative) (units unknown) (unknown) (unknown) (no date) (unknown) (unknown) U Marijuana (THC) Screen (Negative) (units unknown) (unknown) (unknown) (no date) (unknown) (unknown) U Marijuana (THC) Screen Negative (Negative) (units unknown) (unknown) (unknown) (no date) (unknown) (unknown) U Methamphetamines Scrn (Negative) (units unknown) (unknown) (unknown) (no date) (unknown) (unknown) U Methamphetamines Scrn Negative (Negative) (units unknown) (unknown) (unknown) (no date) (unknown) (unknown) U Opiates 300ng/mL cut (Negative) (units unknown) (unknown) (unknown) (no date) (unknown) (unknown) U Opiates 300ng/mL cut Negative (Negative) (units unknown) (unknown) (unknown) (no date) (unknown) (unknown) U Tricyclic Antidepress (Negative) (units unknown) (unknown) (unknown) (no date) (unknown) (unknown) U Tricyclic Antidepress Positive H (Negative) (units unknown) (unknown) (unknown) (no date) (unknown) (unknown) Ur Amphetamines Screen (Negative) (units unknown) (unknown) (unknown) (no date) (unknown) (unknown) Ur Amphetamines Screen Negative (Negative) (units unknown) (unknown) (unknown) (no date) (unknown) (unknown) Ur Barbiturates Screen (Negative) (units unknown) (unknown) (unknown) (no date) (unknown) (unknown) Ur Barbiturates Screen Positive H (Negative) (units unknown) (unknown) (unknown) (no date) (unknown) (unknown) Ur Bilirubin Confirm (Negative) (units unknown) (unknown) (unknown) (no date) (unknown) (unknown) Ur Bilirubin Confirm Negative (Negative) (units unknown) (unknown) (unknown) (no date) (unknown) (unknown) Ur Culture Indicated ? Cult not indicated (units unknown) (unknown) (unknown) (no date) (unknown) (unknown) Ur Culture Indicated? (units unknown) (unknown) (unknown) (no date) (unknown) (unknown) Ur MDMA Scrn (Ecstasy) (Negative) (units unknown) (unknown) (unknown) (no date) (unknown) (unknown) Ur MDMA Scrn (Ecstasy) Negative (Negative) (units unknown) (unknown) (unknown) (no date) (unknown) (unknown) Ur Oxycodone Screen (Negative) (units unknown) (unknown) (unknown) (no date) (unknown) (unknown) Ur Oxycodone Screen Negative (Negative) (units unknown) (unknown) (unknown) (no date) (unknown) (unknown) Ur Phencyclidine Scr n (Negative) (units unknown) (unknown) (unknown) (no date) (unknown) (unknown) Ur Phencyclidine Scr n Negative (Negative) (units unknown) (unknown) (unknown) (no date) (unknown) (unknown) Ur Squamous Epith Cells (0-5/HPF) (units unknown) (unknown) (unknown) (no date) (unknown) (unknown) Ur Squamous Epith Cells 5-10 /hpf H (0-5/HPF) (units unknown) (unknown) (unknown) (no date) (unknown) (unknown) Urine Bacteria (None) (units unknown) (unknown) (unknown) (no date) (unknown) (unknown) Urine Bacteria Few (2-10) H (None) (units unknown) (unknown) (unknown) (no date) (unknown) (unknown) Urine Cocaine Screen (Negative) (units unknown) (unknown) (unknown) (no date) (unknown) (unknown) Urine Cocaine Screen Negative (Negative) (units unknown) (unknown) (unknown) (no date) (unknown) (unknown) Urine Dip (units unknown) (unknown) (unknown) (no date) (unknown) (unknown) Urine Drug Screen, Rapid Stat (units unknown) (unknown) (unknown) (no date) (unknown) (unknown) Urine Methadone Screen (Negative) (units unknown) (unknown) (unknown) (no date) (unknown) (unknown) Urine Methadone Screen Negative (Negative) (units unknown) (unknown) (unknown) (no date) (unknown) (unknown) Urine Microscopic Stat (units unknown) (unknown) (unknown) (no date) (unknown) (unknown) Urine Mucus (Negative) (units unknown) (unknown) (unknown) (no date) (unknown) (unknown) Urine Mucus 3+ H D (Negative) (units unknown) (unknown) (unknown) (no date) (unknown) (unknown) Urine RBC (0-5/HPF) (units unknown) (unknown) (unknown) (no date) (unknown) (unknown) Urine RBC None seen (0-5/HPF) (units unknown) (unknown) (unknown) (no date) (unknown) (unknown) Urine Specific [place] 1.030 (units unknown) (unknown) (unknown) (no date) (unknown) (unknown) Urine WBC (0-5/HPF) (units unknown) (unknown) (unknown) (no date) (unknown) (unknown) Urine WBC 1-5/hpf (0-5/HPF) (units unknown) (unknown) (unknown) (no date) (unknown) (unknown) Vital Signs - 8 hr (units unknown) (unknown) (unknown) (no date) (unknown) (unknown) Vital Signs (units unknown) (unknown) (unknown) (no date) (unknown) (unknown) Vital signs: (units unknown) (unknown) (unknown) (no date) (unknown) (unknown) WBC (4.5-11.0) X103/uL (units unknown) (unknown) (unknown) (no date) (unknown) (unknown) WBC 3.3 L (4.5-11.0) X103/uL (units unknown) (unknown) (unknown) (no date) (unknown) (unknown) [Embedded Image Not Available] (units unknown) (unknown) (unknown) (no date) (unknown) (unknown) [METOCLOPRAMIDE] (units unknown) (unknown) (unknown) (no date) (unknown) (unknown) admit for further evaluation and treatment of her alcohol withdrawal. (units unknown) (unknown) (unknown) (no date) (unknown) (unknown) alcohol intake frequency: 3 or more drinks per day (units unknown) (unknown) (unknown) (no date) (unknown) (unknown) alcohol intake: former (units unknown) (unknown) (unknown) (no date) (unknown) (unknown) alcohol withdrawal. Is hallucinating. CIWA score is elevated. Has been given (units unknown) (unknown) (unknown) (no date) (unknown) (unknown) alert but does still have some visual hallucinations is a bit tremulous with (units unknown) (unknown) (unknown) (no date) (unknown) (unknown) arms extended and agitated. She denies any recent trauma or injury. (units unknown) (unknown) (unknown) (no date) (unknown) (unknown) chief complaint of withdrawal symptoms and was treated with Ativan and phenobarb (units unknown) (unknown) (unknown) (no date) (unknown) (unknown) constipation, melena. (units unknown) (unknown) (unknown) (no date) (unknown) (unknown) current occupational exposures/hazards: Yes (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 with Pandemic ) (units unknown) (unknown) (unknown) (no date) (unknown) (unknown) decisions and she decided to go home. She returns this morning. Is an obvious (units unknown) (unknown) (unknown) (no date) (unknown) (unknown) dexmedeTOMIDine in 0.9 % NaCL (Precedex) 400 mcg in 100 mls @ 2.699 mls/hr IV (units unknown) (unknown) (unknown) (no date) (unknown) (unknown) dizziness. 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 She had been seen and evaluated yesterday with a (units unknown) (unknown) (unknown) (no date) (unknown) (unknown) hallucinations that improved tremendously. She presents tonight and the (units unknown) (unknown) (unknown) (no date) (unknown) (unknown) hen she was having alcohol withdrawal symptoms. I advised that time that she (units unknown) (unknown) (unknown) (no date) (unknown) (unknown) household members: children (units unknown) (unknown) (unknown) (no date) (unknown) (unknown) hydrocodone [HYDROCODONE] AdvReac Unknown VOMITING Verified 07/12/22 16:18 (units unknown) (unknown) (unknown) (no date) (unknown) (unknown) hydroxyzine HCl 50 m g tablet 50 mg PO DAILY 07/13/22 07/13/22 (units unknown) (unknown) (unknown) (no date) (unknown) (unknown) icterus. No injectio n or drainage. (units unknown) (unknown) (unknown) (no date) (unknown) (unknown) make decisions in my opinion. I did discuss the case with Dr. Sena we will (units unknown) (unknown) (unknown) (no date) (unknown) (unknown) marital status: (units unknown) (unknown) (unknown) (no date) (unknown) (unknown) mcg tablet (Tab-A-Kael) (units unknown) (unknown) (unknown) (no date) (unknown) (unknown) metoclopramide Allergy Mild RASH/HIVES Verified 07/12/22 16:18 (units unknown) (unknown) (unknown) (no date) (unknown) (unknown) mg tablet (units unknown) (unknown) (unknown) (no date) (unknown) (unknown) mild distress. Agitated a bit in distress, alert to person and place (units unknown) (unknown) (unknown) (no date) (unknown) (unknown) multivitamin with folic acid 400 1 tab PO DAILY #30 tabs 07/14/22 (units unknown) (unknown) (unknown) (no date) (unknown) (unknown) number of children: 1 (units unknown) (unknown) (unknown) (no date) (unknown) (unknown) occupational status: employed (units unknown) (unknown) (unknown) (no date) (unknown) (unknown) pantoprazole 40 mg tablet,delayed 40 mg PO 0700 #30 tabs 07/14/22 (units unknown) (unknown) (unknown) (no date) (unknown) (unknown) phenobarbital and also Ativan. Currently the patient does not have capacity to (units unknown) (unknown) (unknown) (no date) (unknown) (unknown) presence of EMS has there is a report that she had been found hallucinating and (units unknown) (unknown) (unknown) (no date) (unknown) (unknown) quetiapine 300 mg tablet 300 mg PO DAILY 07/13/22 07/13/22 (units unknown) (unknown) (unknown) (no date) (unknown) (unknown) rales, or rhonchi. (units unknown) (unknown) (unknown) (no date) (unknown) (unknown) rather well until recently when she went on a bit of a [place] and had her last (units unknown) (unknown) (unknown) (no date) (unknown) (unknown) release (units unknown) (unknown) (unknown) (no date) (unknown) (unknown) second hand exposure : No (growing up as a child - not currently) (units unknown) (unknown) (unknown) (no date) (unknown) (unknown) special renee needs: No (units unknown) (unknown) (unknown) (no date) (unknown) (unknown) stay in the hospital however they did feel that she had capacity to make (units unknown) (unknown) (unknown) (no date) (unknown) (unknown) substance use type: does not use (units unknown) (unknown) (unknown) (no date) (unknown) (unknown) then jumped over a fence and ran to [place]. On arrival patient is largely (units unknown) (unknown) (unknown) (no date) (unknown) (unknown) thiamine mononitrate (vit B1) 100 100 mg PO DAILY #30 tabs 07/14/22 (units unknown) (unknown) (unknown) (no date) (unknown) (unknown) tonsillar hypertroph y or exudate. Airway patent. (units unknown) (unknown) (unknown) (no date) (unknown) (unknown) was feeling quite well and discharged home. She states that she had been doing (units unknown) (unknown) (unknown) (no date) (unknown) (unknown) weekend. She presented yesterday with agitation and anxiety along with some (units unknown) (unknown) (unknown) (no date) (unknown) (unknown) workup up to this point. I am aware the patient is I evaluated her yesterday w (units unknown) (unknown) (unknown) (no date) (unknown) (unknown) yelling at people that were not there, maintaining that a smoker or bit her and (units unknown) (unknown) Result panel [id number] (unknown) (no date) (unknown) (unknown) (no value) (units unknown) (unknown) (unknown) (no date) (unknown) (unknown) # GERD (units unknown) (unknown) (unknown) (no date) (unknown) (unknown) # acute alcohol withdrawal with delirium tremens (units unknown) (unknown) (unknown) (no date) (unknown) (unknown) # depression and anxiety (units unknown) (unknown) (unknown) (no date) (unknown) (unknown) # normocytic anemia (units unknown) (unknown) (unknown) (no date) (unknown) (unknown) (past 8 hours): (units unknown) (unknown) (unknown) (no date) (unknown) (unknown) -CIWA protocol with Ativan, phenobarbital 60 mg IV b.i.d., Librium 50 q.6 hours (units unknown) (unknown) (unknown) (no date) (unknown) (unknown) -MV, thiamine and B6 daily (units unknown) (unknown) (unknown) (no date) (unknown) (unknown) -appears to be chronic (units unknown) (unknown) (unknown) (no date) (unknown) (unknown) -appreciate tele-ICU consultation (units unknown) (unknown) (unknown) (no date) (unknown) (unknown) -check B12/folate (units unknown) (unknown) (unknown) (no date) (unknown) (unknown) -continue PPI (units unknown) (unknown) (unknown) (no date) (unknown) (unknown) -continue Precedex drip until and benzos and barbiturates can take effect (units unknown) (unknown) (unknown) (no date) (unknown) (unknown) -continue home Proza c when able to take po (units unknown) (unknown) (unknown) (no date) (unknown) (unknown) -no evidence of bleeding (units unknown) (unknown) (unknown) (no date) (unknown) (unknown) -patient states last drink 5 days ago, but unclear if true given current (units unknown) (unknown) (unknown) (no date) (unknown) (unknown) [id number] (units unknown) (unknown) (unknown) (no date) (unknown) (unknown) 08/01/22 08/01/22 08/01/22 (units unknown) (unknown) (unknown) (no date) (unknown) (unknown) 08/01/22 05:10 (units unknown) (unknown) (unknown) (no date) (unknown) (unknown) 08/01/22 (units unknown) (unknown) (unknown) (no date) (unknown) (unknown) 05:00 08/01/22 (units unknown) (unknown) (unknown) (no date) (unknown) (unknown) 05:10 05:10 05:10 (units unknown) (unknown) (unknown) (no date) (unknown) (unknown) 05:20 05:20 05:20 (units unknown) (unknown) (unknown) (no date) (unknown) (unknown) 07:44 (units unknown) (unknown) (unknown) (no date) (unknown) (unknown) ABD: soft, nontender , nondistended, no organomegaly (units unknown) (unknown) (unknown) (no date) (unknown) (unknown) ALT 24 (units unknown) (unknown) (unknown) (no date) (unknown) (unknown) ALT (units unknown) (unknown) (unknown) (no date) (unknown) (unknown) AST 67 H (units unknown) (unknown) (unknown) (no date) (unknown) (unknown) AST (units unknown) (unknown) (unknown) (no date) (unknown) (unknown) Acetaminophen < 10 (units unknown) (unknown) (unknown) (no date) (unknown) (unknown) Acetaminophen (units unknown) (unknown) (unknown) (no date) (unknown) (unknown) Age/Sex: 31 / F (units unknown) (unknown) (unknown) (no date) (unknown) (unknown) Albumin 4.1 (units unknown) (unknown) (unknown) (no date) (unknown) (unknown) Albumin (units unknown) (unknown) (unknown) (no date) (unknown) (unknown) Albumin/Globulin Ratio 1.5 (units unknown) (unknown) (unknown) (no date) (unknown) (unknown) Albumin/Globulin Ratio (units unknown) (unknown) (unknown) (no date) (unknown) (unknown) Alcohol withdrawal delirium, acute, hyperactive (units unknown) (unknown) (unknown) (no date) (unknown) (unknown) Alcoholism (units unknown) (unknown) (unknown) (no date) (unknown) (unknown) Alkaline Phosphatase 52 (units unknown) (unknown) (unknown) (no date) (unknown) (unknown) Alkaline Phosphatase (units unknown) (unknown) (unknown) (no date) (unknown) (unknown) All other systems reviewed with the patient and are negative unless otherwise (units unknown) (unknown) (unknown) (no date) (unknown) (unknown) Allergies (units unknown) (unknown) (unknown) (no date) (unknown) (unknown) Allergy/AdvReac Type Severity Reaction Status Date / Time (units unknown) (unknown) (unknown) (no date) (unknown) (unknown) Anemia (-2018) (units unknown) (unknown) (unknown) (no date) (unknown) (unknown) Assessment + Plan narrative: (units unknown) (unknown) (unknown) (no date) (unknown) (unknown) Assessment + Plan (units unknown) (unknown) (unknown) (no date) (unknown) (unknown) BUN 14 (units unknown) (unknown) (unknown) (no date) (unknown) (unknown) BUN (units unknown) (unknown) (unknown) (no date) (unknown) (unknown) BUN/Creatinine Ratio 19.4 (units unknown) (unknown) (unknown) (no date) (unknown) (unknown) BUN/Creatinine Ratio (units unknown) (unknown) (unknown) (no date) (unknown) (unknown) Baso # (Auto) 0 (units unknown) (unknown) (unknown) (no date) (unknown) (unknown) Baso # (Auto) (units unknown) (unknown) (unknown) (no date) (unknown) (unknown) Baso % (Auto) 1.5 (units unknown) (unknown) (unknown) (no date) (unknown) (unknown) Baso % (Auto) (units unknown) (unknown) (unknown) (no date) (unknown) (unknown) Blood Pressure 92/67 98/53 L (units unknown) (unknown) (unknown) (no date) (unknown) (unknown) COVID negative. (units unknown) (unknown) (unknown) (no date) (unknown) (unknown) CV: regular rate and rhythm, no murmurs (units unknown) (unknown) (unknown) (no date) (unknown) (unknown) Calcium 8.9 (units unknown) (unknown) (unknown) (no date) (unknown) (unknown) Calcium (units unknown) (unknown) (unknown) (no date) (unknown) (unknown) Carbon Dioxide 24 (units unknown) (unknown) (unknown) (no date) (unknown) (unknown) Carbon Dioxide (units unknown) (unknown) (unknown) (no date) (unknown) (unknown) Chief complaint: Altered LOC (units unknown) (unknown) (unknown) (no date) (unknown) (unknown) Chloride 104 (units unknown) (unknown) (unknown) (no date) (unknown) (unknown) Chloride (units unknown) (unknown) (unknown) (no date) (unknown) (unknown) Code status is full code. (units unknown) (unknown) (unknown) (no date) (unknown) (unknown) Creatinine 0.72 (units unknown) (unknown) (unknown) (no date) (unknown) (unknown) Creatinine (units unknown) (unknown) (unknown) (no date) (unknown) (unknown) : 1990 Acct:[id number] (units unknown) (unknown) (unknown) (no date) (unknown) (unknown) DVT prophylaxis with SCDs. (units unknown) (unknown) (unknown) (no date) (unknown) (unknown) Date Patient Seen: 08/01/22 (units unknown) (unknown) (unknown) (no date) (unknown) (unknown) Date of Service: 08/01/22 (units unknown) (unknown) (unknown) (no date) (unknown) (unknown) EXT: warm and well perfused with no edema (units unknown) (unknown) (unknown) (no date) (unknown) (unknown) Eos # (Auto) 100 (units unknown) (unknown) (unknown) (no date) (unknown) (unknown) Eos # (Auto) (units unknown) (unknown) (unknown) (no date) (unknown) (unknown) Eos % (Auto) 3.6 (units unknown) (unknown) (unknown) (no date) (unknown) (unknown) Eos % (Auto) (units unknown) (unknown) (unknown) (no date) (unknown) (unknown) Estimated GFR > 60 (units unknown) (unknown) (unknown) (no date) (unknown) (unknown) Estimated GFR (units unknown) (unknown) (unknown) (no date) (unknown) (unknown) Ethyl Alcohol < 10 (units unknown) (unknown) (unknown) (no date) (unknown) (unknown) Ethyl Alcohol (units unknown) (unknown) (unknown) (no date) (unknown) (unknown) Exam Narrative: (units unknown) (unknown) (unknown) (no date) (unknown) (unknown) Exam (units unknown) (unknown) (unknown) (no date) (unknown) (unknown) Family + Social History (units unknown) (unknown) (unknown) (no date) (unknown) (unknown) Family History (units unknown) (unknown) (unknown) (no date) (unknown) (unknown) Family/Other Alcoholism (units unknown) (unknown) (unknown) (no date) (unknown) (unknown) Family/Other Diabete s mellitus (units unknown) (unknown) (unknown) (no date) (unknown) (unknown) Father Alcoholism (units unknown) (unknown) (unknown) (no date) (unknown) (unknown) GEN: no acute distress (units unknown) (unknown) (unknown) (no date) (unknown) (unknown) Globulin 2.7 (units unknown) (unknown) (unknown) (no date) (unknown) (unknown) Globulin (units unknown) (unknown) (unknown) (no date) (unknown) (unknown) Glucose 99 (units unknown) (unknown) (unknown) (no date) (unknown) (unknown) Glucose (units unknown) (unknown) (unknown) (no date) (unknown) (unknown) Grandfather Smoker (units unknown) (unknown) (unknown) (no date) (unknown) (unknown) Grandfather Unknown whether patient has any health problems (units unknown) (unknown) (unknown) (no date) (unknown) (unknown) Grandmother Diabetes mellitus (units unknown) (unknown) (unknown) (no date) (unknown) (unknown) Grandmother Hypoglycemia (units unknown) (unknown) (unknown) (no date) (unknown) (unknown) H/O dilation and curettage (-12/14/16) (units unknown) (unknown) (unknown) (no date) (unknown) (unknown) H/O wisdom tooth extraction (-2013) (units unknown) (unknown) (unknown) (no date) (unknown) (unknown) HEENT: moist mucous membranes, PERRL (units unknown) (unknown) (unknown) (no date) (unknown) (unknown) Hct 28.9 L (units unknown) (unknown) (unknown) (no date) (unknown) (unknown) Hct (units unknown) (unknown) (unknown) (no date) (unknown) (unknown) Hgb 9.5 L (units unknown) (unknown) (unknown) (no date) (unknown) (unknown) Hgb (units unknown) (unknown) (unknown) (no date) (unknown) (unknown) History + Physical Report (units unknown) (unknown) (unknown) (no date) (unknown) (unknown) History of Present Illness (units unknown) (unknown) (unknown) (no date) (unknown) (unknown) Home Medications and Allergies (units unknown) (unknown) (unknown) (no date) (unknown) (unknown) Home Medications (units unknown) (unknown) (unknown) (no date) (unknown) (unknown) I have reviewed home meds and used all available resources to reconcile the home (units unknown) (unknown) (unknown) (no date) (unknown) (unknown) I spent a total of 3 5 minutes of critical care time on this patient's care (units unknown) (unknown) (unknown) (no date) (unknown) (unknown) INR 1.1 (units unknown) (unknown) (unknown) (no date) (unknown) (unknown) INR (units unknown) (unknown) (unknown) (no date) (unknown) (unknown) Insomnia (units unknown) (unknown) (unknown) (no date) (unknown) (unknown) [address] [id number] (units unknown) (unknown) (unknown) (no date) (unknown) (unknown) Laboratory Results - last 24 hr (units unknown) (unknown) (unknown) (no date) (unknown) (unknown) Labs (units unknown) (unknown) (unknown) (no date) (unknown) (unknown) Labs: (units unknown) (unknown) (unknown) (no date) (unknown) (unknown) Lipase 337 H (units unknown) (unknown) (unknown) (no date) (unknown) (unknown) Lipase (units unknown) (unknown) (unknown) (no date) (unknown) (unknown) Lymph # (Auto) 1000 L (units unknown) (unknown) (unknown) (no date) (unknown) (unknown) Lymph # (Auto) (units unknown) (unknown) (unknown) (no date) (unknown) (unknown) Lymph % (Auto) 29.3 (units unknown) (unknown) (unknown) (no date) (unknown) (unknown) Lymph % (Auto) (units unknown) (unknown) (unknown) (no date) (unknown) (unknown) MCH 26.5 (units unknown) (unknown) (unknown) (no date) (unknown) (unknown) MCH (units unknown) (unknown) (unknown) (no date) (unknown) (unknown) MCHC 32.9 (units unknown) (unknown) (unknown) (no date) (unknown) (unknown) MCHC (units unknown) (unknown) (unknown) (no date) (unknown) (unknown) MCV 80.6 (units unknown) (unknown) (unknown) (no date) (unknown) (unknown) MCV (units unknown) (unknown) (unknown) (no date) (unknown) (unknown) Medical History (units unknown) (unknown) (unknown) (no date) (unknown) (unknown) Medication Instructions Recorded Confirmed Type (units unknown) (unknown) (unknown) (no date) (unknown) (unknown) Meds (units unknown) (unknown) (unknown) (no date) (unknown) (unknown) Menometrorrhagia (units unknown) (unknown) (unknown) (no date) (unknown) (unknown) [place] # (Auto) 300 (units unknown) (unknown) (unknown) (no date) (unknown) (unknown) [place] # (Auto) (units unknown) (unknown) (unknown) (no date) (unknown) (unknown) [place] % (Auto) 8.0 (units unknown) (unknown) (unknown) (no date) (unknown) (unknown) [place] % (Auto) (units unknown) (unknown) (unknown) (no date) (unknown) (unknown) Mother Diabetes mellitus (units unknown) (unknown) (unknown) (no date) (unknown) (unknown) NECK: trachea midline, no JVD (units unknown) (unknown) (unknown) (no date) (unknown) (unknown) NEURO: awake, alert, oriented, no focal deficits (units unknown) (unknown) (unknown) (no date) (unknown) (unknown) Narrative (units unknown) (unknown) (unknown) (no date) (unknown) (unknown) Narrative: (units unknown) (unknown) (unknown) (no date) (unknown) (unknown) Neut # (Auto) 1900 (units unknown) (unknown) (unknown) (no date) (unknown) (unknown) Neut # (Auto) (units unknown) (unknown) (unknown) (no date) (unknown) (unknown) Neut % (Auto) 57.6 (units unknown) (unknown) (unknown) (no date) (unknown) (unknown) Neut % (Auto) (units unknown) (unknown) (unknown) (no date) (unknown) (unknown) Obesity (units unknown) (unknown) (unknown) (no date) (unknown) (unknown) Objective (units unknown) (unknown) (unknown) (no date) (unknown) (unknown) Overweight (units unknown) (unknown) (unknown) (no date) (unknown) (unknown) Oxygen Delivery Method Room Air Room Air (units unknown) (unknown) (unknown) (no date) (unknown) (unknown) Oxygen Delivery Method Room Air (units unknown) (unknown) (unknown) (no date) (unknown) (unknown) PT 12.2 (units unknown) (unknown) (unknown) (no date) (unknown) (unknown) PT (units unknown) (unknown) (unknown) (no date) (unknown) (unknown) PULM: clear bilaterally (units unknown) (unknown) (unknown) (no date) (unknown) (unknown) Patient History (units unknown) (unknown) (unknown) (no date) (unknown) (unknown) Patient: Sarah Connors MR#: M (units unknown) (unknown) (unknown) (no date) (unknown) (unknown) Plt Count 178 (units unknown) (unknown) (unknown) (no date) (unknown) (unknown) Plt Count (units unknown) (unknown) (unknown) (no date) (unknown) (unknown) Potassium 3.5 (units unknown) (unknown) (unknown) (no date) (unknown) (unknown) Potassium (units unknown) (unknown) (unknown) (no date) (unknown) (unknown) Provider: Jabari Sena D.O. (units unknown) (unknown) (unknown) (no date) (unknown) (unknown) Proxy is spouse Rober. (units unknown) (unknown) (unknown) (no date) (unknown) (unknown) Pulse Oximetry 98 98 (units unknown) (unknown) (unknown) (no date) (unknown) (unknown) Pulse Rate 76 65 (units unknown) (unknown) (unknown) (no date) (unknown) (unknown) RBC 3.59 L (units unknown) (unknown) (unknown) (no date) (unknown) (unknown) RBC (units unknown) (unknown) (unknown) (no date) (unknown) (unknown) RDW 19.7 H (units unknown) (unknown) (unknown) (no date) (unknown) (unknown) RDW (units unknown) (unknown) (unknown) (no date) (unknown) (unknown) Respiratory Rate 18 20 (units unknown) (unknown) (unknown) (no date) (unknown) (unknown) Review of Systems (units unknown) (unknown) (unknown) (no date) (unknown) (unknown) S/P myringotomy with insertion of tube (units unknown) (unknown) (unknown) (no date) (unknown) (unknown) (spontaneous vaginal delivery) (-09/05/18) (units unknown) (unknown) (unknown) (no date) (unknown) (unknown) Safety + Behavioral: (units unknown) (unknown) (unknown) (no date) (unknown) (unknown) Salicylates < 1.0 (units unknown) (unknown) (unknown) (no date) (unknown) (unknown) Salicylates (units unknown) (unknown) (unknown) (no date) (unknown) (unknown) Signed By: (units unknown) (unknown) (unknown) (no date) (unknown) (unknown) Smoker (units unknown) (unknown) (unknown) (no date) (unknown) (unknown) Smoking Status Forme r smoker (units unknown) (unknown) (unknown) (no date) (unknown) (unknown) Social History: (units unknown) (unknown) (unknown) (no date) (unknown) (unknown) Sodium 136 L (units unknown) (unknown) (unknown) (no date) (unknown) (unknown) Sodium (units unknown) (unknown) (unknown) (no date) (unknown) (unknown) Sarah low risk i s a 31-year-old female with past medical history of (units unknown) (unknown) (unknown) (no date) (unknown) (unknown) Substance Use Type does not use (units unknown) (unknown) (unknown) (no date) (unknown) (unknown) Suicidal Ideation Description None (units unknown) (unknown) (unknown) (no date) (unknown) (unknown) Suicide Plan Description No Plan (units unknown) (unknown) (unknown) (no date) (unknown) (unknown) Surgical History (units unknown) (unknown) (unknown) (no date) (unknown) (unknown) TCA's. EtOH negative. (units unknown) (unknown) (unknown) (no date) (unknown) (unknown) Temperature 97.7 F (units unknown) (unknown) (unknown) (no date) (unknown) (unknown) This patient will be admitted as inpatient and will require greater than 2 (units unknown) (unknown) (unknown) (no date) (unknown) (unknown) Tobacco + Substance use: (units unknown) (unknown) (unknown) (no date) (unknown) (unknown) Tobacco type cigarettes (units unknown) (unknown) (unknown) (no date) (unknown) (unknown) Total Bilirubin 0.7 (units unknown) (unknown) (unknown) (no date) (unknown) (unknown) Total Bilirubin (units unknown) (unknown) (unknown) (no date) (unknown) (unknown) Total Protein 6.8 (units unknown) (unknown) (unknown) (no date) (unknown) (unknown) Total Protein (units unknown) (unknown) (unknown) (no date) (unknown) (unknown) U Benzodiazepines Scrn Positive H (units unknown) (unknown) (unknown) (no date) (unknown) (unknown) U Benzodiazepines Scrn (units unknown) (unknown) (unknown) (no date) (unknown) (unknown) U Marijuana (THC) Screen Negative (units unknown) (unknown) (unknown) (no date) (unknown) (unknown) U Marijuana (THC) Screen (units unknown) (unknown) (unknown) (no date) (unknown) (unknown) U Methamphetamines Scrn Negative (units unknown) (unknown) (unknown) (no date) (unknown) (unknown) U Methamphetamines Scrn (units unknown) (unknown) (unknown) (no date) (unknown) (unknown) U Opiates 300ng/mL cut Negative (units unknown) (unknown) (unknown) (no date) (unknown) (unknown) U Opiates 300ng/mL cut (units unknown) (unknown) (unknown) (no date) (unknown) (unknown) U Tricyclic Antidepress Positive H (units unknown) (unknown) (unknown) (no date) (unknown) (unknown) U Tricyclic Antidepress (units unknown) (unknown) (unknown) (no date) (unknown) (unknown) Ur Amphetamines Screen Negative (units unknown) (unknown) (unknown) (no date) (unknown) (unknown) Ur Amphetamines Screen (units unknown) (unknown) (unknown) (no date) (unknown) (unknown) Ur Barbiturates Screen Positive H (units unknown) (unknown) (unknown) (no date) (unknown) (unknown) Ur Barbiturates Screen (units unknown) (unknown) (unknown) (no date) (unknown) (unknown) Ur Bilirubin Confirm Negative (units unknown) (unknown) (unknown) (no date) (unknown) (unknown) Ur Bilirubin Confirm (units unknown) (unknown) (unknown) (no date) (unknown) (unknown) Ur Culture Indicated ? Cult not indicated (units unknown) (unknown) (unknown) (no date) (unknown) (unknown) Ur Culture Indicated? (units unknown) (unknown) (unknown) (no date) (unknown) (unknown) Ur MDMA Scrn (Ecstasy) Negative (units unknown) (unknown) (unknown) (no date) (unknown) (unknown) Ur MDMA Scrn (Ecstasy) (units unknown) (unknown) (unknown) (no date) (unknown) (unknown) Ur Oxycodone Screen Negative (units unknown) (unknown) (unknown) (no date) (unknown) (unknown) Ur Oxycodone Screen (units unknown) (unknown) (unknown) (no date) (unknown) (unknown) Ur Phencyclidine Scr n Negative (units unknown) (unknown) (unknown) (no date) (unknown) (unknown) Ur Phencyclidine Scrn (units unknown) (unknown) (unknown) (no date) (unknown) (unknown) Ur Squamous Epith Cells 5-10 /hpf H (units unknown) (unknown) (unknown) (no date) (unknown) (unknown) Ur Squamous Epith Cells (units unknown) (unknown) (unknown) (no date) (unknown) (unknown) Urine Bacteria Few (2-10) H (units unknown) (unknown) (unknown) (no date) (unknown) (unknown) Urine Bacteria (units unknown) (unknown) (unknown) (no date) (unknown) (unknown) Urine Cocaine Screen Negative (units unknown) (unknown) (unknown) (no date) (unknown) (unknown) Urine Cocaine Screen (units unknown) (unknown) (unknown) (no date) (unknown) (unknown) Urine Methadone Screen Negative (units unknown) (unknown) (unknown) (no date) (unknown) (unknown) Urine Methadone Screen (units unknown) (unknown) (unknown) (no date) (unknown) (unknown) Urine Mucus 3+ H D (units unknown) (unknown) (unknown) (no date) (unknown) (unknown) Urine Mucus (units unknown) (unknown) (unknown) (no date) (unknown) (unknown) Urine RBC None seen (units unknown) (unknown) (unknown) (no date) (unknown) (unknown) Urine RBC (units unknown) (unknown) (unknown) (no date) (unknown) (unknown) Urine WBC 1-5/hpf (units unknown) (unknown) (unknown) (no date) (unknown) (unknown) Urine WBC (units unknown) (unknown) (unknown) (no date) (unknown) (unknown) Vital Signs (units unknown) (unknown) (unknown) (no date) (unknown) (unknown) WBC 3.3 L (units unknown) (unknown) (unknown) (no date) (unknown) (unknown) WBC (units unknown) (unknown) (unknown) (no date) (unknown) (unknown) [Embedded Image Not Available] (units unknown) (unknown) (unknown) (no date) (unknown) (unknown) [METOCLOPRAMIDE] (units unknown) (unknown) (unknown) (no date) (unknown) (unknown) alcohol intake former (units unknown) (unknown) (unknown) (no date) (unknown) (unknown) alcohol intake frequency 3 or more drinks per day (units unknown) (unknown) (unknown) (no date) (unknown) (unknown) depression, alcohol abuse and GERD who presents in acute alcohol withdrawals. (units unknown) (unknown) (unknown) (no date) (unknown) (unknown) fluoxetine 10 mg capsule 10 mg PO DAILY 07/13/22 07/13/22 History (units unknown) (unknown) (unknown) (no date) (unknown) (unknown) household members children (units unknown) (unknown) (unknown) (no date) (unknown) (unknown) hydrocodone [HYDROCODONE] AdvReac Unknown VOMITING Verified 07/12/22 16:18 (units unknown) (unknown) (unknown) (no date) (unknown) (unknown) hydroxyzine HCl 50 m g tablet 50 mg PO DAILY 07/13/22 07/13/22 History (units unknown) (unknown) (unknown) (no date) (unknown) (unknown) mcg tablet (Tab-A-Kael) (units unknown) (unknown) (unknown) (no date) (unknown) (unknown) meds. (units unknown) (unknown) (unknown) (no date) (unknown) (unknown) metoclopramide Allergy Mild RASH/HIVES Verified 07/12/22 16:18 (units unknown) (unknown) (unknown) (no date) (unknown) (unknown) mg tablet (units unknown) (unknown) (unknown) (no date) (unknown) (unknown) midnights of hospita l time to treat acute alcohol withdrawals with DTs. (units unknown) (unknown) (unknown) (no date) (unknown) (unknown) multivitamin with folic acid 400 1 tab PO DAILY #30 tabs 07/14/22 Rx (units unknown) (unknown) (unknown) (no date) (unknown) (unknown) pantoprazole 40 mg tablet,delayed 40 mg PO 0700 #30 tabs 07/14/22 Rx (units unknown) (unknown) (unknown) (no date) (unknown) (unknown) quetiapine 300 mg tablet 300 mg PO DAILY 07/13/22 07/13/22 History (units unknown) (unknown) (unknown) (no date) (unknown) (unknown) release (units unknown) (unknown) (unknown) (no date) (unknown) (unknown) stated. (units unknown) (unknown) (unknown) (no date) (unknown) (unknown) thiamine mononitrate (vit B1) 100 100 mg PO DAILY #30 tabs 07/14/22 Rx (units unknown) (unknown) (unknown) (no date) (unknown) (unknown) today; this time is exclusive of procedural time. (units unknown) (unknown) (unknown) (no date) (unknown) (unknown) when able to take oral meds (units unknown) (unknown) (unknown) (no date) (unknown) (unknown) withdrawals symptoms would like be out of window. UDS positive benzos, barbs and (units unknown) (unknown) Result panel 2240 (unknown) (no date) (unknown) (unknown) Negative (units unknown) (unknown) (unknown) (no date) (unknown) (unknown) Negative (units unknown) (unknown) Result panel 2241 (unknown) (no date) (unknown) (unknown) 4.71 uiu/ml (unknown) (unknown) (no date) (unknown) (unknown) 4.71 uiu/ml (unknown) Result panel 2242 (unknown) (no date) (unknown) (unknown) 1.13 ng/dl (unknown) (unknown) (no date) (unknown) (unknown) 1.13 ng/dl (unknown) (unknown) (no date) (unknown) (unknown) 4.71 uiu/ml (unknown) (unknown) (no date) (unknown) (unknown) 4.71 uiu/ml (unknown) Result panel 2243 (unknown) (no date) (unknown) (unknown) (no value) (units unknown) (unknown) (unknown) (no date) (unknown) (unknown) (past 8 hours): (units unknown) (unknown) (unknown) (no date) (unknown) (unknown) 0.2 MCG/KG/HR (units unknown) (unknown) (unknown) (no date) (unknown) (unknown) [id number] (units unknown) (unknown) (unknown) (no date) (unknown) (unknown) 07/13/22] (units unknown) (unknown) (unknown) (no date) (unknown) (unknown) 07/14/22 [Rx] (units unknown) (unknown) (unknown) (no date) (unknown) (unknown) 08/01/22 08/01/22 08/01/22 (units unknown) (unknown) (unknown) (no date) (unknown) (unknown) 08/01/22 05:10 (units unknown) (unknown) (unknown) (no date) (unknown) (unknown) 08/01/22 09:08 (units unknown) (unknown) (unknown) (no date) (unknown) (unknown) 08/01/22 (units unknown) (unknown) (unknown) (no date) (unknown) (unknown) 05:00 08/01/22 (units unknown) (unknown) (unknown) (no date) (unknown) (unknown) 05:10 05:10 05:10 (units unknown) (unknown) (unknown) (no date) (unknown) (unknown) 05:10 05:10 05:20 (units unknown) (unknown) (unknown) (no date) (unknown) (unknown) 05:20 05:20 08:05 (units unknown) (unknown) (unknown) (no date) (unknown) (unknown) 07:44 08/01/22 (units unknown) (unknown) (unknown) (no date) (unknown) (unknown) 08:10 (units unknown) (unknown) (unknown) (no date) (unknown) (unknown) 08:41 (units unknown) (unknown) (unknown) (no date) (unknown) (unknown) ALT 24 (units unknown) (unknown) (unknown) (no date) (unknown) (unknown) ALT (units unknown) (unknown) (unknown) (no date) (unknown) (unknown) AST 67 H (units unknown) (unknown) (unknown) (no date) (unknown) (unknown) AST (units unknown) (unknown) (unknown) (no date) (unknown) (unknown) Acetaminophen < 10 (units unknown) (unknown) (unknown) (no date) (unknown) (unknown) Acetaminophen (units unknown) (unknown) (unknown) (no date) (unknown) (unknown) Age/Sex: 31 / F (units unknown) (unknown) (unknown) (no date) (unknown) (unknown) Albumin 4.1 (units unknown) (unknown) (unknown) (no date) (unknown) (unknown) Albumin (units unknown) (unknown) (unknown) (no date) (unknown) (unknown) Albumin/Globulin Ratio 1.5 (units unknown) (unknown) (unknown) (no date) (unknown) (unknown) Albumin/Globulin Ratio (units unknown) (unknown) (unknown) (no date) (unknown) (unknown) Alcohol withdrawal delirium, acute, hyperactive (units unknown) (unknown) (unknown) (no date) (unknown) (unknown) Alcoholism (units unknown) (unknown) (unknown) (no date) (unknown) (unknown) Alkaline Phosphatase 52 (units unknown) (unknown) (unknown) (no date) (unknown) (unknown) Alkaline Phosphatase (units unknown) (unknown) (unknown) (no date) (unknown) (unknown) Anemia (-2018) (units unknown) (unknown) (unknown) (no date) (unknown) (unknown) Assessment + Plan (units unknown) (unknown) (unknown) (no date) (unknown) (unknown) BID SANDY Administration (units unknown) (unknown) (unknown) (no date) (unknown) (unknown) BUN 14 (units unknown) (unknown) (unknown) (no date) (unknown) (unknown) BUN (units unknown) (unknown) (unknown) (no date) (unknown) (unknown) BUN/Creatinine Ratio 19.4 (units unknown) (unknown) (unknown) (no date) (unknown) (unknown) BUN/Creatinine Ratio (units unknown) (unknown) (unknown) (no date) (unknown) (unknown) Baso # (Auto) 0 (units unknown) (unknown) (unknown) (no date) (unknown) (unknown) Baso # (Auto) (units unknown) (unknown) (unknown) (no date) (unknown) (unknown) Baso % (Auto) 1.5 (units unknown) (unknown) (unknown) (no date) (unknown) (unknown) Baso % (Auto) (units unknown) (unknown) (unknown) (no date) (unknown) (unknown) Blood Pressure 92/67 98/53 L 102/73 (units unknown) (unknown) (unknown) (no date) (unknown) (unknown) Calcium 8.9 (units unknown) (unknown) (unknown) (no date) (unknown) (unknown) Calcium (units unknown) (unknown) (unknown) (no date) (unknown) (unknown) Carbon Dioxide 24 (units unknown) (unknown) (unknown) (no date) (unknown) (unknown) Carbon Dioxide (units unknown) (unknown) (unknown) (no date) (unknown) (unknown) Chief complaint: Altered LOC (units unknown) (unknown) (unknown) (no date) (unknown) (unknown) Chloride 104 (units unknown) (unknown) (unknown) (no date) (unknown) (unknown) Chloride IV Not Given (units unknown) (unknown) (unknown) (no date) (unknown) (unknown) Chloride (units unknown) (unknown) (unknown) (no date) (unknown) (unknown) Consent obtained for tele-bioinformatics technician care: Yes (units unknown) (unknown) (unknown) (no date) (unknown) (unknown) Consult details (units unknown) (unknown) (unknown) (no date) (unknown) (unknown) Creatinine 0.72 (units unknown) (unknown) (unknown) (no date) (unknown) (unknown) Creatinine (units unknown) (unknown) (unknown) (no date) (unknown) (unknown) Critical Care time: (units unknown) (unknown) (unknown) (no date) (unknown) (unknown) Current Medications (units unknown) (unknown) (unknown) (no date) (unknown) (unknown) DAILY SANDY Administration (units unknown) (unknown) (unknown) (no date) (unknown) (unknown) DAILY SANDY (units unknown) (unknown) (unknown) (no date) (unknown) (unknown) : 1990 Acct:[id number] (units unknown) (unknown) (unknown) (no date) (unknown) (unknown) Date Patient Seen: 08/01/22 (units unknown) (unknown) (unknown) (no date) (unknown) (unknown) Date of Service: 08/01/22 (units unknown) (unknown) (unknown) (no date) (unknown) (unknown) Eos # (Auto) 100 (units unknown) (unknown) (unknown) (no date) (unknown) (unknown) Eos # (Auto) (units unknown) (unknown) (unknown) (no date) (unknown) (unknown) Eos % (Auto) 3.6 (units unknown) (unknown) (unknown) (no date) (unknown) (unknown) Eos % (Auto) (units unknown) (unknown) (unknown) (no date) (unknown) (unknown) Estimated GFR > 60 (units unknown) (unknown) (unknown) (no date) (unknown) (unknown) Estimated GFR (units unknown) (unknown) (unknown) (no date) (unknown) (unknown) Ethyl Alcohol < 10 (units unknown) (unknown) (unknown) (no date) (unknown) (unknown) Ethyl Alcohol (units unknown) (unknown) (unknown) (no date) (unknown) (unknown) Exam (units unknown) (unknown) (unknown) (no date) (unknown) (unknown) Family History (units unknown) (unknown) (unknown) (no date) (unknown) (unknown) Family/Other Alcoholism (units unknown) (unknown) (unknown) (no date) (unknown) (unknown) Family/Other Diabete s mellitus (units unknown) (unknown) (unknown) (no date) (unknown) (unknown) Father Alcoholism (units unknown) (unknown) (unknown) (no date) (unknown) (unknown) Free T4 1.13 (units unknown) (unknown) (unknown) (no date) (unknown) (unknown) Free T4 (units unknown) (unknown) (unknown) (no date) (unknown) (unknown) Generic Name Dose Route Start Last Admin (units unknown) (unknown) (unknown) (no date) (unknown) (unknown) Globulin 2.7 (units unknown) (unknown) (unknown) (no date) (unknown) (unknown) Globulin (units unknown) (unknown) (unknown) (no date) (unknown) (unknown) Glucose 99 (units unknown) (unknown) (unknown) (no date) (unknown) (unknown) Glucose (units unknown) (unknown) (unknown) (no date) (unknown) (unknown) Grandfather Smoker (units unknown) (unknown) (unknown) (no date) (unknown) (unknown) Grandfather Unknown whether patient has any health problems (units unknown) (unknown) (unknown) (no date) (unknown) (unknown) Grandmother Diabetes mellitus (units unknown) (unknown) (unknown) (no date) (unknown) (unknown) Grandmother Hypoglycemia (units unknown) (unknown) (unknown) (no date) (unknown) (unknown) H/O dilation and curettage (-12/14/16) (units unknown) (unknown) (unknown) (no date) (unknown) (unknown) H/O wisdom tooth extraction () (units unknown) (unknown) (unknown) (no date) (unknown) (unknown) Hct 28.9 L (units unknown) (unknown) (unknown) (no date) (unknown) (unknown) Hct (units unknown) (unknown) (unknown) (no date) (unknown) (unknown) Hgb 9.5 L (units unknown) (unknown) (unknown) (no date) (unknown) (unknown) Hgb (units unknown) (unknown) (unknown) (no date) (unknown) (unknown) History of Present Illness (units unknown) (unknown) (unknown) (no date) (unknown) (unknown) Home Medications (units unknown) (unknown) (unknown) (no date) (unknown) (unknown) Hydroxyzine Pamoate 25 Mg Capsule PO 50 mg (units unknown) (unknown) (unknown) (no date) (unknown) (unknown) Hydroxyzine Pamoate 50 mg 08/01/22 09:00 08/01/22 08:22 (units unknown) (unknown) (unknown) (no date) (unknown) (unknown) I spent a total of [ ] minutes of critical care time on this patient's care (units unknown) (unknown) (unknown) (no date) (unknown) (unknown) IF CAMERA ACTIVATED, patient seen via real-time interactive audiovisual (units unknown) (unknown) (unknown) (no date) (unknown) (unknown) INR 1.1 (units unknown) (unknown) (unknown) (no date) (unknown) (unknown) INR (units unknown) (unknown) (unknown) (no date) (unknown) (unknown) Insomnia (units unknown) (unknown) (unknown) (no date) (unknown) (unknown) [address] [address] (units unknown) (unknown) (unknown) (no date) (unknown) (unknown) Laboratory Results - last 24 hr (units unknown) (unknown) (unknown) (no date) (unknown) (unknown) Labs (units unknown) (unknown) (unknown) (no date) (unknown) (unknown) Labs: (units unknown) (unknown) (unknown) (no date) (unknown) (unknown) Lipase 337 H (units unknown) (unknown) (unknown) (no date) (unknown) (unknown) Lipase (units unknown) (unknown) (unknown) (no date) (unknown) (unknown) Lymph # (Auto) 1000 L (units unknown) (unknown) (unknown) (no date) (unknown) (unknown) Lymph # (Auto) (units unknown) (unknown) (unknown) (no date) (unknown) (unknown) Lymph % (Auto) 29.3 (units unknown) (unknown) (unknown) (no date) (unknown) (unknown) Lymph % (Auto) (units unknown) (unknown) (unknown) (no date) (unknown) (unknown) MCH 26.5 (units unknown) (unknown) (unknown) (no date) (unknown) (unknown) MCH (units unknown) (unknown) (unknown) (no date) (unknown) (unknown) MCHC 32.9 (units unknown) (unknown) (unknown) (no date) (unknown) (unknown) MCHC (units unknown) (unknown) (unknown) (no date) (unknown) (unknown) MCV 80.6 (units unknown) (unknown) (unknown) (no date) (unknown) (unknown) MCV (units unknown) (unknown) (unknown) (no date) (unknown) (unknown) Magnesium 2.0 (units unknown) (unknown) (unknown) (no date) (unknown) (unknown) Magnesium (units unknown) (unknown) (unknown) (no date) (unknown) (unknown) Medical History (units unknown) (unknown) (unknown) (no date) (unknown) (unknown) Medications: (units unknown) (unknown) (unknown) (no date) (unknown) (unknown) Menometrorrhagia (units unknown) (unknown) (unknown) (no date) (unknown) (unknown) [place] # (Auto) 300 (units unknown) (unknown) (unknown) (no date) (unknown) (unknown) [place] # (Auto) (units unknown) (unknown) (unknown) (no date) (unknown) (unknown) [place] % (Auto) 8.0 (units unknown) (unknown) (unknown) (no date) (unknown) (unknown) [place] % (Auto) (units unknown) (unknown) (unknown) (no date) (unknown) (unknown) Mother Diabetes mellitus (units unknown) (unknown) (unknown) (no date) (unknown) (unknown) Neut # (Auto) 1900 (units unknown) (unknown) (unknown) (no date) (unknown) (unknown) Neut # (Auto) (units unknown) (unknown) (unknown) (no date) (unknown) (unknown) Neut % (Auto) 57.6 (units unknown) (unknown) (unknown) (no date) (unknown) (unknown) Neut % (Auto) (units unknown) (unknown) (unknown) (no date) (unknown) (unknown) Obesity (units unknown) (unknown) (unknown) (no date) (unknown) (unknown) Objective (units unknown) (unknown) (unknown) (no date) (unknown) (unknown) 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: Bedside RN and Dr. Sena (units unknown) (unknown) (unknown) (no date) (unknown) (unknown) Overweight (units unknown) (unknown) (unknown) (no date) (unknown) (unknown) Oxygen Delivery Method Room Air Room Air Room Air (units unknown) (unknown) (unknown) (no date) (unknown) (unknown) Oxygen Delivery Method Room Air (units unknown) (unknown) (unknown) (no date) (unknown) (unknown) PFSH (units unknown) (unknown) (unknown) (no date) (unknown) (unknown) PT 12.2 (units unknown) (unknown) (unknown) (no date) (unknown) (unknown) PT (units unknown) (unknown) (unknown) (no date) (unknown) (unknown) Pantoprazole 40 Mg Vial IV 40 mg (units unknown) (unknown) (unknown) (no date) (unknown) (unknown) Pantoprazole Sodium 40 mg 08/01/22 09:00 08/01/22 08:21 (units unknown) (unknown) (unknown) (no date) (unknown) (unknown) Patient Location: ICU (units unknown) (unknown) (unknown) (no date) (unknown) (unknown) Patient: Sarah Connors MR#: M (units unknown) (unknown) (unknown) (no date) (unknown) (unknown) Phenobarbital 60 mg 08/01/22 09:00 08/01/22 08:21 (units unknown) (unknown) (unknown) (no date) (unknown) (unknown) Phenobarbital 65 Mg/Ml Vial IV 60 mg (units unknown) (unknown) (unknown) (no date) (unknown) (unknown) Plt Count 178 (units unknown) (unknown) (unknown) (no date) (unknown) (unknown) Plt Count (units unknown) (unknown) (unknown) (no date) (unknown) (unknown) Potassium 3.5 (units unknown) (unknown) (unknown) (no date) (unknown) (unknown) Potassium (units unknown) (unknown) (unknown) (no date) (unknown) (unknown) Precedex IV 1.5 mcg/kg/hr (units unknown) (unknown) (unknown) (no date) (unknown) (unknown) Protocol (units unknown) (unknown) (unknown) (no date) (unknown) (unknown) Provider location (State): [place] (units unknown) (unknown) (unknown) (no date) (unknown) (unknown) Provider: Paulo Dixon MD (units unknown) (unknown) (unknown) (no date) (unknown) (unknown) Pulse Oximetry 98 98 98 (units unknown) (unknown) (unknown) (no date) (unknown) (unknown) Pulse Rate 76 65 87 (units unknown) (unknown) (unknown) (no date) (unknown) (unknown) RBC 3.59 L (units unknown) (unknown) (unknown) (no date) (unknown) (unknown) RBC (units unknown) (unknown) (unknown) (no date) (unknown) (unknown) RDW 19.7 H (units unknown) (unknown) (unknown) (no date) (unknown) (unknown) RDW (units unknown) (unknown) (unknown) (no date) (unknown) (unknown) Reason for consult: Alcohol withdrawal (units unknown) (unknown) (unknown) (no date) (unknown) (unknown) Requesting provider: Jabari Sena (units unknown) (unknown) (unknown) (no date) (unknown) (unknown) Respiratory Rate 18 20 20 (units unknown) (unknown) (unknown) (no date) (unknown) (unknown) S/P myringotomy with insertion of tube (units unknown) (unknown) (unknown) (no date) (unknown) (unknown) SARS-CoV-2 (PCR) Negative (units unknown) (unknown) (unknown) (no date) (unknown) (unknown) SARS-CoV-2 (PCR) (units unknown) (unknown) (unknown) (no date) (unknown) (unknown) (spontaneous vaginal delivery) (-09/05/18) (units unknown) (unknown) (unknown) (no date) (unknown) (unknown) Salicylates < 1.0 (units unknown) (unknown) (unknown) (no date) (unknown) (unknown) Salicylates (units unknown) (unknown) (unknown) (no date) (unknown) (unknown) Signed By: (units unknown) (unknown) (unknown) (no date) (unknown) (unknown) Smoker (units unknown) (unknown) (unknown) (no date) (unknown) (unknown) Smoking Status: Former smoker (units unknown) (unknown) (unknown) (no date) (unknown) (unknown) Social History (units unknown) (unknown) (unknown) (no date) (unknown) (unknown) Sodium 136 L (units unknown) (unknown) (unknown) (no date) (unknown) (unknown) Sodium (units unknown) (unknown) (unknown) (no date) (unknown) (unknown) Surgical History (units unknown) (unknown) (unknown) (no date) (unknown) (unknown) TITRATE SANDY 20.241 mls/hr (units unknown) (unknown) (unknown) (no date) (unknown) (unknown) TSH 4.71 H (units unknown) (unknown) (unknown) (no date) (unknown) (unknown) TSH (units unknown) (unknown) (unknown) (no date) (unknown) (unknown) 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 (units unknown) (unknown) (unknown) (no date) (unknown) (unknown) Temperature 97.7 F (units unknown) (unknown) (unknown) (no date) (unknown) (unknown) Thiamine HCl 100 mg/ Sodium 101 mls @ 404 mls/hr 08/01/22 09:00 08/01/22 (units unknown) (unknown) (unknown) (no date) (unknown) (unknown) Time Spent With Patient (units unknown) (unknown) (unknown) (no date) (unknown) (unknown) Titration (units unknown) (unknown) (unknown) (no date) (unknown) (unknown) Total Bilirubin 0.7 (units unknown) (unknown) (unknown) (no date) (unknown) (unknown) Total Bilirubin (units unknown) (unknown) (unknown) (no date) (unknown) (unknown) Total Protein 6.8 (units unknown) (unknown) (unknown) (no date) (unknown) (unknown) Total Protein (units unknown) (unknown) (unknown) (no date) (unknown) (unknown) Trade Name Freq PRN Reason Stop Dose Admin (units unknown) (unknown) (unknown) (no date) (unknown) (unknown) U Benzodiazepines Scrn Positive H (units unknown) (unknown) (unknown) (no date) (unknown) (unknown) U Benzodiazepines Scrn (units unknown) (unknown) (unknown) (no date) (unknown) (unknown) U Marijuana (THC) Screen Negative (units unknown) (unknown) (unknown) (no date) (unknown) (unknown) U Marijuana (THC) Screen (units unknown) (unknown) (unknown) (no date) (unknown) (unknown) U Methamphetamines Scrn Negative (units unknown) (unknown) (unknown) (no date) (unknown) (unknown) U Methamphetamines Scrn (units unknown) (unknown) (unknown) (no date) (unknown) (unknown) U Opiates 300ng/mL cut Negative (units unknown) (unknown) (unknown) (no date) (unknown) (unknown) U Opiates 300ng/mL cut (units unknown) (unknown) (unknown) (no date) (unknown) (unknown) U Tricyclic Antidepress Positive H (units unknown) (unknown) (unknown) (no date) (unknown) (unknown) U Tricyclic Antidepress (units unknown) (unknown) (unknown) (no date) (unknown) (unknown) Ur Amphetamines Screen Negative (units unknown) (unknown) (unknown) (no date) (unknown) (unknown) Ur Amphetamines Screen (units unknown) (unknown) (unknown) (no date) (unknown) (unknown) Ur Barbiturates Screen Positive H (units unknown) (unknown) (unknown) (no date) (unknown) (unknown) Ur Barbiturates Screen (units unknown) (unknown) (unknown) (no date) (unknown) (unknown) Ur Bilirubin Confirm Negative (units unknown) (unknown) (unknown) (no date) (unknown) (unknown) Ur Bilirubin Confirm (units unknown) (unknown) (unknown) (no date) (unknown) (unknown) Ur Culture Indicated ? Cult not indicated (units unknown) (unknown) (unknown) (no date) (unknown) (unknown) Ur Culture Indicated? (units unknown) (unknown) (unknown) (no date) (unknown) (unknown) Ur MDMA Scrn (Ecstasy) Negative (units unknown) (unknown) (unknown) (no date) (unknown) (unknown) Ur MDMA Scrn (Ecstasy) (units unknown) (unknown) (unknown) (no date) (unknown) (unknown) Ur Oxycodone Screen Negative (units unknown) (unknown) (unknown) (no date) (unknown) (unknown) Ur Oxycodone Screen (units unknown) (unknown) (unknown) (no date) (unknown) (unknown) Ur Phencyclidine Scr n Negative (units unknown) (unknown) (unknown) (no date) (unknown) (unknown) Ur Phencyclidine Scrn (units unknown) (unknown) (unknown) (no date) (unknown) (unknown) Ur Squamous Epith Cells 5-10 /hpf H (units unknown) (unknown) (unknown) (no date) (unknown) (unknown) Ur Squamous Epith Cells (units unknown) (unknown) (unknown) (no date) (unknown) (unknown) Urine Bacteria Few (2-10) H (units unknown) (unknown) (unknown) (no date) (unknown) (unknown) Urine Bacteria (units unknown) (unknown) (unknown) (no date) (unknown) (unknown) Urine Cocaine Screen Negative (units unknown) (unknown) (unknown) (no date) (unknown) (unknown) Urine Cocaine Screen (units unknown) (unknown) (unknown) (no date) (unknown) (unknown) Urine Methadone Screen Negative (units unknown) (unknown) (unknown) (no date) (unknown) (unknown) Urine Methadone Screen (units unknown) (unknown) (unknown) (no date) (unknown) (unknown) Urine Mucus 3+ H D (units unknown) (unknown) (unknown) (no date) (unknown) (unknown) Urine Mucus (units unknown) (unknown) (unknown) (no date) (unknown) (unknown) Urine RBC None seen (units unknown) (unknown) (unknown) (no date) (unknown) (unknown) Urine RBC (units unknown) (unknown) (unknown) (no date) (unknown) (unknown) Urine WBC 1-5/hpf (units unknown) (unknown) (unknown) (no date) (unknown) (unknown) Urine WBC (units unknown) (unknown) (unknown) (no date) (unknown) (unknown) Visit Medications (administered) (units unknown) (unknown) (unknown) (no date) (unknown) (unknown) Vital Signs (units unknown) (unknown) (unknown) (no date) (unknown) (unknown) WBC 3.3 L (units unknown) (unknown) (unknown) (no date) (unknown) (unknown) WBC (units unknown) (unknown) (unknown) (no date) (unknown) (unknown) [Embedded Image Not Available] (units unknown) (unknown) (unknown) (no date) (unknown) (unknown) [Rx] (units unknown) (unknown) (unknown) (no date) (unknown) (unknown) alcohol intake: former (units unknown) (unknown) (unknown) (no date) (unknown) (unknown) communication: [place] a activated (units unknown) (unknown) (unknown) (no date) (unknown) (unknown) current occupational exposures/hazards: Yes (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 with Pandemic ) (units unknown) (unknown) (unknown) (no date) (unknown) (unknown) dexmedeTOMIDine in 0.9 % NaCL 400 mcg in 100 mls @ 2.699 mls/hr 08/01/22 08:15 (units unknown) (unknown) (unknown) (no date) (unknown) (unknown) education level: college 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[employer] (units unknown) (unknown) (unknown) (no date) (unknown) (unknown) fluoxetine 10 mg capsule 10 mg PO DAILY 07/13/22 [History Confirmed 07/13/22] (units unknown) (unknown) (unknown) (no date) (unknown) (unknown) household members: children (units unknown) (unknown) (unknown) (no date) (unknown) (unknown) hydroxyzine HCl 50 m g tablet 50 mg PO DAILY 07/13/22 [History Confirmed (units unknown) (unknown) (unknown) (no date) (unknown) (unknown) marital status: (units unknown) (unknown) (unknown) (no date) (unknown) (unknown) multivitamin with folic acid 400 mcg tablet (Tab-A-Kael) 1 tab PO DAILY #30 tabs (units unknown) (unknown) (unknown) (no date) (unknown) (unknown) number of children: 1 (units unknown) (unknown) (unknown) (no date) (unknown) (unknown) occupational status: employed (units unknown) (unknown) (unknown) (no date) (unknown) (unknown) pantoprazole 40 mg tablet,delayed release 40 mg PO 0700 #30 tabs 07/14/22 [Rx] (units unknown) (unknown) (unknown) (no date) (unknown) (unknown) quetiapine 300 mg tablet 300 mg PO DAILY 07/13/22 [History Confirmed 07/13/22] (units unknown) (unknown) (unknown) (no date) (unknown) (unknown) second hand exposure : No (growing up as a child - not currently) (units unknown) (unknown) (unknown) (no date) (unknown) (unknown) special renee needs: No (units unknown) (unknown) (unknown) (no date) (unknown) (unknown) substance use type: does not use (units unknown) (unknown) (unknown) (no date) (unknown) (unknown) thiamine mononitrate (vit B1) 100 mg tablet 100 mg PO DAILY #30 tabs 07/14/22 (units unknown) (unknown) (unknown) (no date) (unknown) (unknown) today; this time is exclusive of procedural time. (units unknown) (unknown) Result panel 2244 (unknown) (no date) (unknown) (unknown) 11.9 ng/ml (unknown) (unknown) (no date) (unknown) (unknown) 11.9 ng/ml (unknown) (unknown) (no date) (unknown) (unknown) 401 pg/ml (unknown) (unknown) (no date) (unknown) (unknown) 401 pg/ml (unknown) Result panel 2245 (unknown) (no date) (unknown) (unknown) Not Detected (units unknown) (unknown) Result panel 2246 (unknown) (no date) (unknown) (unknown) (no value) (units unknown) (unknown) (unknown) (no date) (unknown) (unknown) # GERD (units unknown) (unknown) (unknown) (no date) (unknown) (unknown) # acute alcohol withdrawal with delirium tremens (units unknown) (unknown) (unknown) (no date) (unknown) (unknown) # depression and anxiety (units unknown) (unknown) (unknown) (no date) (unknown) (unknown) # normocytic anemia (units unknown) (unknown) (unknown) (no date) (unknown) (unknown) (past 8 hours): (units unknown) (unknown) (unknown) (no date) (unknown) (unknown) -CIWA protocol with Ativan, phenobarbital 60 mg IV b.i.d., Librium 50 q.6 hours (units unknown) (unknown) (unknown) (no date) (unknown) (unknown) -MV, thiamine and B6 daily (units unknown) (unknown) (unknown) (no date) (unknown) (unknown) -appears to be chronic (units unknown) (unknown) (unknown) (no date) (unknown) (unknown) -appreciate tele-ICU consultation (units unknown) (unknown) (unknown) (no date) (unknown) (unknown) -check B12/folate (units unknown) (unknown) (unknown) (no date) (unknown) (unknown) -continue PPI (units unknown) (unknown) (unknown) (no date) (unknown) (unknown) -continue Precedex drip until and benzos and barbiturates can take effect (units unknown) (unknown) (unknown) (no date) (unknown) (unknown) -continue home Proza c when able to take po (units unknown) (unknown) (unknown) (no date) (unknown) (unknown) -no evidence of bleeding (units unknown) (unknown) (unknown) (no date) (unknown) (unknown) -patient states last drink 5 days ago, but unclear if true given current (units unknown) (unknown) (unknown) (no date) (unknown) (unknown) [id number] (units unknown) (unknown) (unknown) (no date) (unknown) (unknown) 08/01/22 08/01/22 08/01/22 (units unknown) (unknown) (unknown) (no date) (unknown) (unknown) 08/01/22 05:10 (units unknown) (unknown) (unknown) (no date) (unknown) (unknown) 08/01/22 1427 (units unknown) (unknown) (unknown) (no date) (unknown) (unknown) 08/01/22 (units unknown) (unknown) (unknown) (no date) (unknown) (unknown) 05:00 08/01/22 (units unknown) (unknown) (unknown) (no date) (unknown) (unknown) 05:10 05:10 05:10 (units unknown) (unknown) (unknown) (no date) (unknown) (unknown) 05:20 05:20 05:20 (units unknown) (unknown) (unknown) (no date) (unknown) (unknown) 07:44 (units unknown) (unknown) (unknown) (no date) (unknown) (unknown) ABD: soft, nontender , nondistended, no organomegaly (units unknown) (unknown) (unknown) (no date) (unknown) (unknown) ALT 24 (units unknown) (unknown) (unknown) (no date) (unknown) (unknown) ALT (units unknown) (unknown) (unknown) (no date) (unknown) (unknown) AST 67 H (units unknown) (unknown) (unknown) (no date) (unknown) (unknown) AST (units unknown) (unknown) (unknown) (no date) (unknown) (unknown) Acetaminophen < 10 (units unknown) (unknown) (unknown) (no date) (unknown) (unknown) Acetaminophen (units unknown) (unknown) (unknown) (no date) (unknown) (unknown) Age/Sex: 31 / F (units unknown) (unknown) (unknown) (no date) (unknown) (unknown) Albumin 4.1 (units unknown) (unknown) (unknown) (no date) (unknown) (unknown) Albumin (units unknown) (unknown) (unknown) (no date) (unknown) (unknown) Albumin/Globulin Ratio 1.5 (units unknown) (unknown) (unknown) (no date) (unknown) (unknown) Albumin/Globulin Ratio (units unknown) (unknown) (unknown) (no date) (unknown) (unknown) Alcohol withdrawal delirium, acute, hyperactive (units unknown) (unknown) (unknown) (no date) (unknown) (unknown) Alcoholism (units unknown) (unknown) (unknown) (no date) (unknown) (unknown) Alkaline Phosphatase 52 (units unknown) (unknown) (unknown) (no date) (unknown) (unknown) Alkaline Phosphatase (units unknown) (unknown) (unknown) (no date) (unknown) (unknown) All other systems reviewed with the patient and are negative unless otherwise (units unknown) (unknown) (unknown) (no date) (unknown) (unknown) Allergies (units unknown) (unknown) (unknown) (no date) (unknown) (unknown) Allergy/AdvReac Type Severity Reaction Status Date / Time (units unknown) (unknown) (unknown) (no date) (unknown) (unknown) Anemia (-2018) (units unknown) (unknown) (unknown) (no date) (unknown) (unknown) Assessment + Plan narrative: (units unknown) (unknown) (unknown) (no date) (unknown) (unknown) Assessment + Plan (units unknown) (unknown) (unknown) (no date) (unknown) (unknown) BUN 14 (units unknown) (unknown) (unknown) (no date) (unknown) (unknown) BUN (units unknown) (unknown) (unknown) (no date) (unknown) (unknown) BUN/Creatinine Ratio 19.4 (units unknown) (unknown) (unknown) (no date) (unknown) (unknown) BUN/Creatinine Ratio (units unknown) (unknown) (unknown) (no date) (unknown) (unknown) Baso # (Auto) 0 (units unknown) (unknown) (unknown) (no date) (unknown) (unknown) Baso # (Auto) (units unknown) (unknown) (unknown) (no date) (unknown) (unknown) Baso % (Auto) 1.5 (units unknown) (unknown) (unknown) (no date) (unknown) (unknown) Baso % (Auto) (units unknown) (unknown) (unknown) (no date) (unknown) (unknown) Blood Pressure 92/67 98/53 L (units unknown) (unknown) (unknown) (no date) (unknown) (unknown) COVID negative. (units unknown) (unknown) (unknown) (no date) (unknown) (unknown) CV: regular rate and rhythm, no murmurs (units unknown) (unknown) (unknown) (no date) (unknown) (unknown) Calcium 8.9 (units unknown) (unknown) (unknown) (no date) (unknown) (unknown) Calcium (units unknown) (unknown) (unknown) (no date) (unknown) (unknown) Carbon Dioxide 24 (units unknown) (unknown) (unknown) (no date) (unknown) (unknown) Carbon Dioxide (units unknown) (unknown) (unknown) (no date) (unknown) (unknown) Chief complaint: Altered LOC (units unknown) (unknown) (unknown) (no date) (unknown) (unknown) Chloride 104 (units unknown) (unknown) (unknown) (no date) (unknown) (unknown) Chloride (units unknown) (unknown) (unknown) (no date) (unknown) (unknown) Code status is full code. (units unknown) (unknown) (unknown) (no date) (unknown) (unknown) Creatinine 0.72 (units unknown) (unknown) (unknown) (no date) (unknown) (unknown) Creatinine (units unknown) (unknown) (unknown) (no date) (unknown) (unknown) : 1990 Acct:[id number] (units unknown) (unknown) (unknown) (no date) (unknown) (unknown) DVT prophylaxis with SCDs. (units unknown) (unknown) (unknown) (no date) (unknown) (unknown) Date Patient Seen: 08/01/22 (units unknown) (unknown) (unknown) (no date) (unknown) (unknown) Date of Service: 08/01/22 (units unknown) (unknown) (unknown) (no date) (unknown) (unknown) EXT: warm and well perfused with no edema (units unknown) (unknown) (unknown) (no date) (unknown) (unknown) Eos # (Auto) 100 (units unknown) (unknown) (unknown) (no date) (unknown) (unknown) Eos # (Auto) (units unknown) (unknown) (unknown) (no date) (unknown) (unknown) Eos % (Auto) 3.6 (units unknown) (unknown) (unknown) (no date) (unknown) (unknown) Eos % (Auto) (units unknown) (unknown) (unknown) (no date) (unknown) (unknown) Estimated GFR > 60 (units unknown) (unknown) (unknown) (no date) (unknown) (unknown) Estimated GFR (units unknown) (unknown) (unknown) (no date) (unknown) (unknown) Ethyl Alcohol < 10 (units unknown) (unknown) (unknown) (no date) (unknown) (unknown) Ethyl Alcohol (units unknown) (unknown) (unknown) (no date) (unknown) (unknown) Exam Narrative: (units unknown) (unknown) (unknown) (no date) (unknown) (unknown) Exam (units unknown) (unknown) (unknown) (no date) (unknown) (unknown) Family + Social History (units unknown) (unknown) (unknown) (no date) (unknown) (unknown) Family History (units unknown) (unknown) (unknown) (no date) (unknown) (unknown) Family/Other Alcoholism (units unknown) (unknown) (unknown) (no date) (unknown) (unknown) Family/Other Diabete s mellitus (units unknown) (unknown) (unknown) (no date) (unknown) (unknown) Father Alcoholism (units unknown) (unknown) (unknown) (no date) (unknown) (unknown) GEN: no acute distress, sleeping (units unknown) (unknown) (unknown) (no date) (unknown) (unknown) Globulin 2.7 (units unknown) (unknown) (unknown) (no date) (unknown) (unknown) Globulin (units unknown) (unknown) (unknown) (no date) (unknown) (unknown) Glucose 99 (units unknown) (unknown) (unknown) (no date) (unknown) (unknown) Glucose (units unknown) (unknown) (unknown) (no date) (unknown) (unknown) Grandfather Smoker (units unknown) (unknown) (unknown) (no date) (unknown) (unknown) Grandfather Unknown whether patient has any health problems (units unknown) (unknown) (unknown) (no date) (unknown) (unknown) Grandmother Diabetes mellitus (units unknown) (unknown) (unknown) (no date) (unknown) (unknown) Grandmother Hypoglycemia (units unknown) (unknown) (unknown) (no date) (unknown) (unknown) H/O dilation and curettage (-12/14/16) (units unknown) (unknown) (unknown) (no date) (unknown) (unknown) H/O wisdom tooth extraction () (units unknown) (unknown) (unknown) (no date) (unknown) (unknown) HEENT: moist mucous membranes, PERRL (units unknown) (unknown) (unknown) (no date) (unknown) (unknown) Hct 28.9 L (units unknown) (unknown) (unknown) (no date) (unknown) (unknown) Hct (units unknown) (unknown) (unknown) (no date) (unknown) (unknown) Hgb 9.5 L (units unknown) (unknown) (unknown) (no date) (unknown) (unknown) Hgb (units unknown) (unknown) (unknown) (no date) (unknown) (unknown) History + Physical Report (units unknown) (unknown) (unknown) (no date) (unknown) (unknown) History of Present Illness (units unknown) (unknown) (unknown) (no date) (unknown) (unknown) Home Medications and Allergies (units unknown) (unknown) (unknown) (no date) (unknown) (unknown) Home Medications (units unknown) (unknown) (unknown) (no date) (unknown) (unknown) I have reviewed home meds and used all available resources to reconcile the home (units unknown) (unknown) (unknown) (no date) (unknown) (unknown) I spent a total of 3 5 minutes of critical care time on this patient's care (units unknown) (unknown) (unknown) (no date) (unknown) (unknown) INR 1.1 (units unknown) (unknown) (unknown) (no date) (unknown) (unknown) INR (units unknown) (unknown) (unknown) (no date) (unknown) (unknown) Insomnia (units unknown) (unknown) (unknown) (no date) (unknown) (unknown) [address] [address] (units unknown) (unknown) (unknown) (no date) (unknown) (unknown) Laboratory Results - last 24 hr (units unknown) (unknown) (unknown) (no date) (unknown) (unknown) Labs (units unknown) (unknown) (unknown) (no date) (unknown) (unknown) Labs: (units unknown) (unknown) (unknown) (no date) (unknown) (unknown) Lipase 337 H (units unknown) (unknown) (unknown) (no date) (unknown) (unknown) Lipase (units unknown) (unknown) (unknown) (no date) (unknown) (unknown) Lymph # (Auto) 1000 L (units unknown) (unknown) (unknown) (no date) (unknown) (unknown) Lymph # (Auto) (units unknown) (unknown) (unknown) (no date) (unknown) (unknown) Lymph % (Auto) 29.3 (units unknown) (unknown) (unknown) (no date) (unknown) (unknown) Lymph % (Auto) (units unknown) (unknown) (unknown) (no date) (unknown) (unknown) MCH 26.5 (units unknown) (unknown) (unknown) (no date) (unknown) (unknown) MCH (units unknown) (unknown) (unknown) (no date) (unknown) (unknown) MCHC 32.9 (units unknown) (unknown) (unknown) (no date) (unknown) (unknown) MCHC (units unknown) (unknown) (unknown) (no date) (unknown) (unknown) MCV 80.6 (units unknown) (unknown) (unknown) (no date) (unknown) (unknown) MCV (units unknown) (unknown) (unknown) (no date) (unknown) (unknown) Medical History (units unknown) (unknown) (unknown) (no date) (unknown) (unknown) Medication Instructions Recorded Confirmed Type (units unknown) (unknown) (unknown) (no date) (unknown) (unknown) Meds (units unknown) (unknown) (unknown) (no date) (unknown) (unknown) Menometrorrhagia (units unknown) (unknown) (unknown) (no date) (unknown) (unknown) [place] # (Auto) 300 (units unknown) (unknown) (unknown) (no date) (unknown) (unknown) [place] # (Auto) (units unknown) (unknown) (unknown) (no date) (unknown) (unknown) [place] % (Auto) 8.0 (units unknown) (unknown) (unknown) (no date) (unknown) (unknown) [place] % (Auto) (units unknown) (unknown) (unknown) (no date) (unknown) (unknown) Mother Diabetes mellitus (units unknown) (unknown) (unknown) (no date) (unknown) (unknown) NECK: trachea midline, no JVD (units unknown) (unknown) (unknown) (no date) (unknown) (unknown) NEURO: awake, alert, oriented, no focal deficits (units unknown) (unknown) (unknown) (no date) (unknown) (unknown) Narrative (units unknown) (unknown) (unknown) (no date) (unknown) (unknown) Narrative: (units unknown) (unknown) (unknown) (no date) (unknown) (unknown) Neut # (Auto) 1900 (units unknown) (unknown) (unknown) (no date) (unknown) (unknown) Neut # (Auto) (units unknown) (unknown) (unknown) (no date) (unknown) (unknown) Neut % (Auto) 57.6 (units unknown) (unknown) (unknown) (no date) (unknown) (unknown) Neut % (Auto) (units unknown) (unknown) (unknown) (no date) (unknown) (unknown) Obesity (units unknown) (unknown) (unknown) (no date) (unknown) (unknown) Objective (units unknown) (unknown) (unknown) (no date) (unknown) (unknown) Overweight (units unknown) (unknown) (unknown) (no date) (unknown) (unknown) Oxygen Delivery Method Room Air Room Air (units unknown) (unknown) (unknown) (no date) (unknown) (unknown) Oxygen Delivery Method Room Air (units unknown) (unknown) (unknown) (no date) (unknown) (unknown) PT 12.2 (units unknown) (unknown) (unknown) (no date) (unknown) (unknown) PT (units unknown) (unknown) (unknown) (no date) (unknown) (unknown) PULM: clear bilaterally (units unknown) (unknown) (unknown) (no date) (unknown) (unknown) Patient History (units unknown) (unknown) (unknown) (no date) (unknown) (unknown) 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 She was previously (units unknown) (unknown) (unknown) (no date) (unknown) (unknown) Patient: Sarah Connors MR#: M (units unknown) (unknown) (unknown) (no date) (unknown) (unknown) Plt Count 178 (units unknown) (unknown) (unknown) (no date) (unknown) (unknown) Plt Count (units unknown) (unknown) (unknown) (no date) (unknown) (unknown) Potassium 3.5 (units unknown) (unknown) (unknown) (no date) (unknown) (unknown) Potassium (units unknown) (unknown) (unknown) (no date) (unknown) (unknown) Provider: Jabari Sena D.O. (units unknown) (unknown) (unknown) (no date) (unknown) (unknown) Proxy is spouse Rober. (units unknown) (unknown) (unknown) (no date) (unknown) (unknown) Pulse Oximetry 98 98 (units unknown) (unknown) (unknown) (no date) (unknown) (unknown) Pulse Rate 76 65 (units unknown) (unknown) (unknown) (no date) (unknown) (unknown) RBC 3.59 L (units unknown) (unknown) (unknown) (no date) (unknown) (unknown) RBC (units unknown) (unknown) (unknown) (no date) (unknown) (unknown) RDW 19.7 H (units unknown) (unknown) (unknown) (no date) (unknown) (unknown) RDW (units unknown) (unknown) (unknown) (no date) (unknown) (unknown) Respiratory Rate 18 20 (units unknown) (unknown) (unknown) (no date) (unknown) (unknown) Review of Systems (units unknown) (unknown) (unknown) (no date) (unknown) (unknown) S/P myringotomy with insertion of tube (units unknown) (unknown) (unknown) (no date) (unknown) (unknown) (spontaneous vaginal delivery) (-09/05/18) (units unknown) (unknown) (unknown) (no date) (unknown) (unknown) Safety + Behavioral: (units unknown) (unknown) (unknown) (no date) (unknown) (unknown) Salicylates < 1.0 (units unknown) (unknown) (unknown) (no date) (unknown) (unknown) Salicylates (units unknown) (unknown) (unknown) (no date) (unknown) (unknown) Signed By:<Electronically signed by Jabari Sena D.O.> (units unknown) (unknown) (unknown) (no date) (unknown) (unknown) Smoker (units unknown) (unknown) (unknown) (no date) (unknown) (unknown) Smoking Status Forme r smoker (units unknown) (unknown) (unknown) (no date) (unknown) (unknown) Social History: (units unknown) (unknown) (unknown) (no date) (unknown) (unknown) Sodium 136 L (units unknown) (unknown) (unknown) (no date) (unknown) (unknown) Sodium (units unknown) (unknown) (unknown) (no date) (unknown) (unknown) Sarah low risk i s a 31-year-old female with past medical history of (units unknown) (unknown) (unknown) (no date) (unknown) (unknown) Substance Use Type does not use (units unknown) (unknown) (unknown) (no date) (unknown) (unknown) Suicidal Ideation Description None (units unknown) (unknown) (unknown) (no date) (unknown) (unknown) Suicide Plan Description No Plan (units unknown) (unknown) (unknown) (no date) (unknown) (unknown) Surgical History (units unknown) (unknown) (unknown) (no date) (unknown) (unknown) TCA's. EtOH negative. (units unknown) (unknown) (unknown) (no date) (unknown) (unknown) Temperature 97.7 F (units unknown) (unknown) (unknown) (no date) (unknown) (unknown) This patient will be admitted as inpatient and will require greater than 2 (units unknown) (unknown) (unknown) (no date) (unknown) (unknown) Tobacco + Substance use: (units unknown) (unknown) (unknown) (no date) (unknown) (unknown) Tobacco type cigarettes (units unknown) (unknown) (unknown) (no date) (unknown) (unknown) Total Bilirubin 0.7 (units unknown) (unknown) (unknown) (no date) (unknown) (unknown) Total Bilirubin (units unknown) (unknown) (unknown) (no date) (unknown) (unknown) Total Protein 6.8 (units unknown) (unknown) (unknown) (no date) (unknown) (unknown) Total Protein (units unknown) (unknown) (unknown) (no date) (unknown) (unknown) U Benzodiazepines Scrn Positive H (units unknown) (unknown) (unknown) (no date) (unknown) (unknown) U Benzodiazepines Scrn (units unknown) (unknown) (unknown) (no date) (unknown) (unknown) U Marijuana (THC) Screen Negative (units unknown) (unknown) (unknown) (no date) (unknown) (unknown) U Marijuana (THC) Screen (units unknown) (unknown) (unknown) (no date) (unknown) (unknown) U Methamphetamines Scrn Negative (units unknown) (unknown) (unknown) (no date) (unknown) (unknown) U Methamphetamines Scrn (units unknown) (unknown) (unknown) (no date) (unknown) (unknown) U Opiates 300ng/mL cut Negative (units unknown) (unknown) (unknown) (no date) (unknown) (unknown) U Opiates 300ng/mL cut (units unknown) (unknown) (unknown) (no date) (unknown) (unknown) U Tricyclic Antidepress Positive H (units unknown) (unknown) (unknown) (no date) (unknown) (unknown) U Tricyclic Antidepress (units unknown) (unknown) (unknown) (no date) (unknown) (unknown) Ur Amphetamines Screen Negative (units unknown) (unknown) (unknown) (no date) (unknown) (unknown) Ur Amphetamines Screen (units unknown) (unknown) (unknown) (no date) (unknown) (unknown) Ur Barbiturates Screen Positive H (units unknown) (unknown) (unknown) (no date) (unknown) (unknown) Ur Barbiturates Screen (units unknown) (unknown) (unknown) (no date) (unknown) (unknown) Ur Bilirubin Confirm Negative (units unknown) (unknown) (unknown) (no date) (unknown) (unknown) Ur Bilirubin Confirm (units unknown) (unknown) (unknown) (no date) (unknown) (unknown) Ur Culture Indicated ? Cult not indicated (units unknown) (unknown) (unknown) (no date) (unknown) (unknown) Ur Culture Indicated? (units unknown) (unknown) (unknown) (no date) (unknown) (unknown) Ur MDMA Scrn (Ecstasy) Negative (units unknown) (unknown) (unknown) (no date) (unknown) (unknown) Ur MDMA Scrn (Ecstasy) (units unknown) (unknown) (unknown) (no date) (unknown) (unknown) Ur Oxycodone Screen Negative (units unknown) (unknown) (unknown) (no date) (unknown) (unknown) Ur Oxycodone Screen (units unknown) (unknown) (unknown) (no date) (unknown) (unknown) Ur Phencyclidine Scr n Negative (units unknown) (unknown) (unknown) (no date) (unknown) (unknown) Ur Phencyclidine Scrn (units unknown) (unknown) (unknown) (no date) (unknown) (unknown) Ur Squamous Epith Cells 5-10 /hpf H (units unknown) (unknown) (unknown) (no date) (unknown) (unknown) Ur Squamous Epith Cells (units unknown) (unknown) (unknown) (no date) (unknown) (unknown) Urine Bacteria Few (2-10) H (units unknown) (unknown) (unknown) (no date) (unknown) (unknown) Urine Bacteria (units unknown) (unknown) (unknown) (no date) (unknown) (unknown) Urine Cocaine Screen Negative (units unknown) (unknown) (unknown) (no date) (unknown) (unknown) Urine Cocaine Screen (units unknown) (unknown) (unknown) (no date) (unknown) (unknown) Urine Methadone Screen Negative (units unknown) (unknown) (unknown) (no date) (unknown) (unknown) Urine Methadone Screen (units unknown) (unknown) (unknown) (no date) (unknown) (unknown) Urine Mucus 3+ H D (units unknown) (unknown) (unknown) (no date) (unknown) (unknown) Urine Mucus (units unknown) (unknown) (unknown) (no date) (unknown) (unknown) Urine RBC None seen (units unknown) (unknown) (unknown) (no date) (unknown) (unknown) Urine RBC (units unknown) (unknown) (unknown) (no date) (unknown) (unknown) Urine WBC 1-5/hpf (units unknown) (unknown) (unknown) (no date) (unknown) (unknown) Urine WBC (units unknown) (unknown) (unknown) (no date) (unknown) (unknown) Vital Signs (units unknown) (unknown) (unknown) (no date) (unknown) (unknown) WBC 3.3 L (units unknown) (unknown) (unknown) (no date) (unknown) (unknown) WBC (units unknown) (unknown) (unknown) (no date) (unknown) (unknown) [Embedded Image Not Available] (units unknown) (unknown) (unknown) (no date) (unknown) (unknown) [METOCLOPRAMIDE] (units unknown) (unknown) (unknown) (no date) (unknown) (unknown) abuse. She was also seen in our ED yesterday for withdrawals and sent home, but (units unknown) (unknown) (unknown) (no date) (unknown) (unknown) admitted for DT withdrawals for 2 days earlier this month and was in the ICU on (units unknown) (unknown) (unknown) (no date) (unknown) (unknown) alcohol intake former (units unknown) (unknown) (unknown) (no date) (unknown) (unknown) alcohol intake frequency 3 or more drinks per day (units unknown) (unknown) (unknown) (no date) (unknown) (unknown) ativan given in ED without good effect, so precedex started. Patient's labs and (units unknown) (unknown) (unknown) (no date) (unknown) (unknown) depression, alcohol abuse and GERD who presents in acute alcohol withdrawals. (units unknown) (unknown) (unknown) (no date) (unknown) (unknown) fluoxetine 10 mg capsule 10 mg PO DAILY 07/13/22 08/01/22 History (units unknown) (unknown) (unknown) (no date) (unknown) (unknown) household members children (units unknown) (unknown) (unknown) (no date) (unknown) (unknown) hydrocodone [HYDROCODONE] AdvReac Unknown VOMITING Verified 07/12/22 16:18 (units unknown) (unknown) (unknown) (no date) (unknown) (unknown) hydroxyzine HCl 50 m g tablet 50 mg PO DAILY 07/13/22 08/01/22 History (units unknown) (unknown) (unknown) (no date) (unknown) (unknown) mcg tablet (Tab-A-Kael) (units unknown) (unknown) (unknown) (no date) (unknown) (unknown) meds. (units unknown) (unknown) (unknown) (no date) (unknown) (unknown) metoclopramide Allergy Mild RASH/HIVES Verified 07/12/22 16:18 (units unknown) (unknown) (unknown) (no date) (unknown) (unknown) mg tablet (units unknown) (unknown) (unknown) (no date) (unknown) (unknown) [facility] time to treat acute alcohol withdrawals with DTs. (units unknown) (unknown) (unknown) (no date) (unknown) (unknown) multivitamin with folic acid 400 1 tab PO DAILY #30 tabs 07/14/22 08/01/22 Rx (units unknown) (unknown) (unknown) (no date) (unknown) (unknown) pantoprazole 40 mg tablet,delayed 40 mg PO 0700 #30 tabs 07/14/22 08/01/22 Rx (units unknown) (unknown) (unknown) (no date) (unknown) (unknown) precedex drip. Discharged home after she refused inpatient rehab for her alcohol (units unknown) (unknown) (unknown) (no date) (unknown) (unknown) precedex drip. (units unknown) (unknown) (unknown) (no date) (unknown) (unknown) quetiapine 300 mg tablet 300 mg PO DAILY 07/13/22 08/01/22 History (units unknown) (unknown) (unknown) (no date) (unknown) (unknown) release (units unknown) (unknown) (unknown) (no date) (unknown) (unknown) stated. (units unknown) (unknown) (unknown) (no date) (unknown) (unknown) then returned today with hallucinations and severe withdrawals. Phenobarb and (units unknown) (unknown) (unknown) (no date) (unknown) (unknown) thiamine mononitrate (vit B1) 100 100 mg PO DAILY #30 tabs 07/14/22 08/01/22 Rx (units unknown) (unknown) (unknown) (no date) (unknown) (unknown) today; this time is exclusive of procedural time. (units unknown) (unknown) (unknown) (no date) (unknown) (unknown) vitals are stable. O n my exam in CCU patient is sleeping and calm on max (units unknown) (unknown) (unknown) (no date) (unknown) (unknown) when able to take oral meds (units unknown) (unknown) (unknown) (no date) (unknown) (unknown) withdrawals symptoms would like be out of window. UDS positive benzos, barbs and (units unknown) (unknown) Result panel 2247 (unknown) (no date) (unknown) (unknown) (no value) (units unknown) (unknown) (unknown) (no date) (unknown) (unknown) [id number] (units unknown) (unknown) (unknown) (no date) (unknown) (unknown) :: (units unknown) (unknown) (unknown) (no date) (unknown) (unknown) Age/Sex: 31 / F (units unknown) (unknown) (unknown) (no date) (unknown) (unknown) : 1990 Acct:[id number] (units unknown) (unknown) (unknown) (no date) (unknown) (unknown) Date Patient Seen: 08/01/22 (units unknown) (unknown) (unknown) (no date) (unknown) (unknown) Date of Service: 08/01/22 (units unknown) (unknown) (unknown) (no date) (unknown) (unknown) ICU Multidisciplinar y Rounds (units unknown) (unknown) (unknown) (no date) (unknown) (unknown) [address] [address] (units unknown) (unknown) (unknown) (no date) (unknown) (unknown) Note: (units unknown) (unknown) (unknown) (no date) (unknown) (unknown) Patient is currently is precedex (units unknown) (unknown) (unknown) (no date) (unknown) (unknown) Patient: Sarah Connors MR#: M (units unknown) (unknown) (unknown) (no date) (unknown) (unknown) Provider: Paulo Dixon MD (units unknown) (unknown) (unknown) (no date) (unknown) (unknown) Signed By: (units unknown) (unknown) (unknown) (no date) (unknown) (unknown) This patient was see n via real time interactive two-way audiovisual (units unknown) (unknown) (unknown) (no date) (unknown) (unknown) Time Patient Seen: 20:12 (units unknown) (unknown) (unknown) (no date) (unknown) (unknown) telecommunication. (units unknown) (unknown) Result panel 2248 (unknown) (no date) (unknown) (unknown) (no value) (units unknown) (unknown) (unknown) (no date) (unknown) (unknown) [id number] (units unknown) (unknown) (unknown) (no date) (unknown) (unknown) 08/01/22 2017 (units unknown) (unknown) (unknown) (no date) (unknown) (unknown) :: (units unknown) (unknown) (unknown) (no date) (unknown) (unknown) Age/Sex: 31 / F (units unknown) (unknown) (unknown) (no date) (unknown) (unknown) CIWA is 4. Added D5L R at 84cc/hr and check accucheck q6hr. D/w bedside RN. (units unknown) (unknown) (unknown) (no date) (unknown) (unknown) : 1990 Acct:[id number] (units unknown) (unknown) (unknown) (no date) (unknown) (unknown) Date Patient Seen: 08/01/22 (units unknown) (unknown) (unknown) (no date) (unknown) (unknown) Date of Service: 08/01/22 (units unknown) (unknown) (unknown) (no date) (unknown) (unknown) ICU Multidisciplinar y Rounds (units unknown) (unknown) (unknown) (no date) (unknown) (unknown) [address] [address] (units unknown) (unknown) (unknown) (no date) (unknown) (unknown) Note: (units unknown) (unknown) (unknown) (no date) (unknown) (unknown) Patient is currently on precedex 1 mcg. No ativan given since 10 am. Current (units unknown) (unknown) (unknown) (no date) (unknown) (unknown) Patient: Sarah Connors MR#: M (units unknown) (unknown) (unknown) (no date) (unknown) (unknown) Provider: Paulo Dixon MD (units unknown) (unknown) (unknown) (no date) (unknown) (unknown) Signed By:<Electronically signed by Paulo Dixon MD> (units unknown) (unknown) (unknown) (no date) (unknown) (unknown) This patient was see n via real time interactive two-way audiovisual (units unknown) (unknown) (unknown) (no date) (unknown) (unknown) Time Patient Seen: 20:12 (units unknown) (unknown) (unknown) (no date) (unknown) (unknown) telecommunication. (units unknown) (unknown) Result panel 2249 (unknown) (no date) (unknown) (unknown) > 60 ml/min (unknown) (unknown) (no date) (unknown) (unknown) > 60 ml/min (unknown) (unknown) (no date) (unknown) (unknown) 0.54 mg/dl (unknown) (unknown) (no date) (unknown) (unknown) 105 mmol/l (unknown) (unknown) (no date) (unknown) (unknown) 122 mg/dl (unknown) (unknown) (no date) (unknown) (unknown) 122 mg/dl (unknown) (unknown) (no date) (unknown) (unknown) 135 mmol/l (unknown) (unknown) (no date) (unknown) (unknown) 24 mmol/l (unknown) (unknown) (no date) (unknown) (unknown) 3.3 mmol/l (unknown) (unknown) (no date) (unknown) (unknown) 5 mg/dl (unknown) (unknown) (no date) (unknown) (unknown) 7.9 mg/dl (unknown) (unknown) (no date) (unknown) (unknown) 9.3 (units unknown) (unknown) Result panel 2250 (unknown) (no date) (unknown) (unknown) 0 /ul (unknown) (unknown) (no date) (unknown) (unknown) 0.8 % (unknown) (unknown) (no date) (unknown) (unknown) 100 /ul (unknown) (unknown) (no date) (unknown) (unknown) 1200 /ul (unknown) (unknown) (no date) (unknown) (unknown) 157 x10 3/ul (unknown) (unknown) (no date) (unknown) (unknown) 2.9 % (unknown) (unknown) (no date) (unknown) (unknown) 20.1 % (unknown) (unknown) (no date) (unknown) (unknown) 200 /ul (unknown) (unknown) (no date) (unknown) (unknown) 24.0 % (unknown) (unknown) (no date) (unknown) (unknown) 26.6 pg (unknown) (unknown) (no date) (unknown) (unknown) 28.6 % (unknown) (unknown) (no date) (unknown) (unknown) 3.53 x10 6/ul (unknown) (unknown) (no date) (unknown) (unknown) 32.8 % (unknown) (unknown) (no date) (unknown) (unknown) 3400 /ul (unknown) (unknown) (no date) (unknown) (unknown) 5.0 % (unknown) (unknown) (no date) (unknown) (unknown) 5.0 x10 3/ul (unknown) (unknown) (no date) (unknown) (unknown) 5.0 x10 3/ul (unknown) (unknown) (no date) (unknown) (unknown) 67.3 % (unknown) (unknown) (no date) (unknown) (unknown) 81.1 fl (unknown) (unknown) (no date) (unknown) (unknown) 9.4 g/dl (unknown) Result panel 2251 (unknown) (no date) (unknown) (unknown) 0 /ul (unknown) (unknown) (no date) (unknown) (unknown) 0.8 % (unknown) (unknown) (no date) (unknown) (unknown) 1 (units unknown) (unknown) (unknown) (no date) (unknown) (unknown) 100 /ul (unknown) (unknown) (no date) (unknown) (unknown) 1200 /ul (unknown) (unknown) (no date) (unknown) (unknown) 157 x10 3/ul (unknown) (unknown) (no date) (unknown) (unknown) 2.9 % (unknown) (unknown) (no date) (unknown) (unknown) 20.1 % (unknown) (unknown) (no date) (unknown) (unknown) 200 /ul (unknown) (unknown) (no date) (unknown) (unknown) 24.0 % (unknown) (unknown) (no date) (unknown) (unknown) 26.6 pg (unknown) (unknown) (no date) (unknown) (unknown) 28.6 % (unknown) (unknown) (no date) (unknown) (unknown) 3.53 x10 6/ul (unknown) (unknown) (no date) (unknown) (unknown) 32.8 % (unknown) (unknown) (no date) (unknown) (unknown) 3400 /ul (unknown) (unknown) (no date) (unknown) (unknown) 5.0 % (unknown) (unknown) (no date) (unknown) (unknown) 5.0 x10 3/ul (unknown) (unknown) (no date) (unknown) (unknown) 5.0 x10 3/ul (unknown) (unknown) (no date) (unknown) (unknown) 67.3 % (unknown) (unknown) (no date) (unknown) (unknown) 81.1 fl (unknown) (unknown) (no date) (unknown) (unknown) 9.4 g/dl (unknown) (unknown) (no date) (unknown) (unknown) See Below (units unknown) (unknown) Result panel 2252 (unknown) (no date) (unknown) (unknown) (no value) (units unknown) (unknown) (unknown) (no date) (unknown) (unknown) # GERD (units unknown) (unknown) (unknown) (no date) (unknown) (unknown) # acute alcohol withdrawal with delirium tremens (units unknown) (unknown) (unknown) (no date) (unknown) (unknown) # depression and anxiety (units unknown) (unknown) (unknown) (no date) (unknown) (unknown) # normocytic anemia (units unknown) (unknown) (unknown) (no date) (unknown) (unknown) # toxic metabolic encephalopathy secondary to benzos, barbiturates, and alcohol (units unknown) (unknown) (unknown) (no date) (unknown) (unknown) (past 8 hours): (units unknown) (unknown) (unknown) (no date) (unknown) (unknown) -CIWA protocol with Ativan, phenobarbital 60 mg IV b.i.d., Librium 50 q.6 hours (units unknown) (unknown) (unknown) (no date) (unknown) (unknown) -MV, thiamine and B6 daily (units unknown) (unknown) (unknown) (no date) (unknown) (unknown) -appears to be chronic (units unknown) (unknown) (unknown) (no date) (unknown) (unknown) -appreciate tele-ICU consultation (units unknown) (unknown) (unknown) (no date) (unknown) (unknown) -check B12/folate (units unknown) (unknown) (unknown) (no date) (unknown) (unknown) -continue PPI (units unknown) (unknown) (unknown) (no date) (unknown) (unknown) -continue Precedex drip until and benzos and barbiturates can take effect (units unknown) (unknown) (unknown) (no date) (unknown) (unknown) -continue home Proza c when able to take po (units unknown) (unknown) (unknown) (no date) (unknown) (unknown) -no evidence of bleeding (units unknown) (unknown) (unknown) (no date) (unknown) (unknown) -patient states last drink 5 days ago, but unclear if true given current (units unknown) (unknown) (unknown) (no date) (unknown) (unknown) -patient very agitated in ED and required precedex drip (units unknown) (unknown) (unknown) (no date) (unknown) (unknown) -should improve as withdrawals improve (units unknown) (unknown) (unknown) (no date) (unknown) (unknown) [id number] (units unknown) (unknown) (unknown) (no date) (unknown) (unknown) 00:00 08/02/22 (units unknown) (unknown) (unknown) (no date) (unknown) (unknown) 01:00 08/02/22 (units unknown) (unknown) (unknown) (no date) (unknown) (unknown) 01:00 (units unknown) (unknown) (unknown) (no date) (unknown) (unknown) 02:00 08/02/22 (units unknown) (unknown) (unknown) (no date) (unknown) (unknown) 08/01/22 08/01/22 08/01/22 (units unknown) (unknown) (unknown) (no date) (unknown) (unknown) 08/01/22 08/01/22 08/02/22 (units unknown) (unknown) (unknown) (no date) (unknown) (unknown) 08/02/22 03:48 (units unknown) (unknown) (unknown) (no date) (unknown) (unknown) 08/02/22 (units unknown) (unknown) (unknown) (no date) (unknown) (unknown) 03:00 08/02/22 (units unknown) (unknown) (unknown) (no date) (unknown) (unknown) 03:48 (units unknown) (unknown) (unknown) (no date) (unknown) (unknown) 04:00 (units unknown) (unknown) (unknown) (no date) (unknown) (unknown) 05:00 08/02/22 (units unknown) (unknown) (unknown) (no date) (unknown) (unknown) 05:10 05:10 05:10 (units unknown) (unknown) (unknown) (no date) (unknown) (unknown) 06:00 (units unknown) (unknown) (unknown) (no date) (unknown) (unknown) 06:35 08/02/22 (units unknown) (unknown) (unknown) (no date) (unknown) (unknown) 08:05 09:25 03:48 (units unknown) (unknown) (unknown) (no date) (unknown) (unknown) ABD: soft, nontender , nondistended, no organomegaly (units unknown) (unknown) (unknown) (no date) (unknown) (unknown) Age/Sex: 31 / F (units unknown) (unknown) (unknown) (no date) (unknown) (unknown) Alcohol withdrawal delirium, acute, hyperactive (units unknown) (unknown) (unknown) (no date) (unknown) (unknown) Alcoholism (units unknown) (unknown) (unknown) (no date) (unknown) (unknown) Anemia (-2018) (units unknown) (unknown) (unknown) (no date) (unknown) (unknown) Anisocytosis 1+ H (units unknown) (unknown) (unknown) (no date) (unknown) (unknown) Anisocytosis (units unknown) (unknown) (unknown) (no date) (unknown) (unknown) Assessment + Plan narrative: (units unknown) (unknown) (unknown) (no date) (unknown) (unknown) Assessment + Plan (units unknown) (unknown) (unknown) (no date) (unknown) (unknown) BUN 5 L (units unknown) (unknown) (unknown) (no date) (unknown) (unknown) BUN (units unknown) (unknown) (unknown) (no date) (unknown) (unknown) BUN/Creatinine Ratio 9.3 (units unknown) (unknown) (unknown) (no date) (unknown) (unknown) BUN/Creatinine Ratio (units unknown) (unknown) (unknown) (no date) (unknown) (unknown) Baso # (Auto) 0 (units unknown) (unknown) (unknown) (no date) (unknown) (unknown) Baso # (Auto) (units unknown) (unknown) (unknown) (no date) (unknown) (unknown) Baso % (Auto) 0.8 (units unknown) (unknown) (unknown) (no date) (unknown) (unknown) Baso % (Auto) (units unknown) (unknown) (unknown) (no date) (unknown) (unknown) Blood Pressure 115/7 7 123/76 119/77 (units unknown) (unknown) (unknown) (no date) (unknown) (unknown) Blood Pressure 118/7 4 112/81 (units unknown) (unknown) (unknown) (no date) (unknown) (unknown) Blood Pressure 124/75 (units unknown) (unknown) (unknown) (no date) (unknown) (unknown) COVID negative. (units unknown) (unknown) (unknown) (no date) (unknown) (unknown) CV: regular rate and rhythm, no murmurs (units unknown) (unknown) (unknown) (no date) (unknown) (unknown) Calcium 7.9 L (units unknown) (unknown) (unknown) (no date) (unknown) (unknown) Calcium (units unknown) (unknown) (unknown) (no date) (unknown) (unknown) Carbon Dioxide 24 (units unknown) (unknown) (unknown) (no date) (unknown) (unknown) Carbon Dioxide (units unknown) (unknown) (unknown) (no date) (unknown) (unknown) Chloride 105 (units unknown) (unknown) (unknown) (no date) (unknown) (unknown) Chloride (units unknown) (unknown) (unknown) (no date) (unknown) (unknown) Code status is full code. (units unknown) (unknown) (unknown) (no date) (unknown) (unknown) Creatinine 0.54 (units unknown) (unknown) (unknown) (no date) (unknown) (unknown) Creatinine (units unknown) (unknown) (unknown) (no date) (unknown) (unknown) : 1990 Acct:[id number] (units unknown) (unknown) (unknown) (no date) (unknown) (unknown) DVT prophylaxis with SCDs. (units unknown) (unknown) (unknown) (no date) (unknown) (unknown) Date of Service: 08/01/22 (units unknown) (unknown) (unknown) (no date) (unknown) (unknown) EXT: warm and well perfused with no edema (units unknown) (unknown) (unknown) (no date) (unknown) (unknown) Eos # (Auto) 100 (units unknown) (unknown) (unknown) (no date) (unknown) (unknown) Eos # (Auto) (units unknown) (unknown) (unknown) (no date) (unknown) (unknown) Eos % (Auto) 2.9 (units unknown) (unknown) (unknown) (no date) (unknown) (unknown) Eos % (Auto) (units unknown) (unknown) (unknown) (no date) (unknown) (unknown) Estimated GFR > 60 (units unknown) (unknown) (unknown) (no date) (unknown) (unknown) Estimated GFR (units unknown) (unknown) (unknown) (no date) (unknown) (unknown) Exam Narrative: (units unknown) (unknown) (unknown) (no date) (unknown) (unknown) Exam (units unknown) (unknown) (unknown) (no date) (unknown) (unknown) Family History (units unknown) (unknown) (unknown) (no date) (unknown) (unknown) Family/Other Alcoholism (units unknown) (unknown) (unknown) (no date) (unknown) (unknown) Family/Other Diabete s mellitus (units unknown) (unknown) (unknown) (no date) (unknown) (unknown) Father Alcoholism (units unknown) (unknown) (unknown) (no date) (unknown) (unknown) Folate 11.9 (units unknown) (unknown) (unknown) (no date) (unknown) (unknown) Folate (units unknown) (unknown) (unknown) (no date) (unknown) (unknown) Free T4 1.13 (units unknown) (unknown) (unknown) (no date) (unknown) (unknown) Free T4 (units unknown) (unknown) (unknown) (no date) (unknown) (unknown) GEN: no acute distress, sleeping (units unknown) (unknown) (unknown) (no date) (unknown) (unknown) Glucose 122 H (units unknown) (unknown) (unknown) (no date) (unknown) (unknown) Glucose (units unknown) (unknown) (unknown) (no date) (unknown) (unknown) Grandfather Smoker (units unknown) (unknown) (unknown) (no date) (unknown) (unknown) Grandfather Unknown whether patient has any health problems (units unknown) (unknown) (unknown) (no date) (unknown) (unknown) Grandmother Diabetes mellitus (units unknown) (unknown) (unknown) (no date) (unknown) (unknown) Grandmother Hypoglycemia (units unknown) (unknown) (unknown) (no date) (unknown) (unknown) H/O dilation and curettage (-12/14/16) (units unknown) (unknown) (unknown) (no date) (unknown) (unknown) H/O wisdom tooth extraction (-2013) (units unknown) (unknown) (unknown) (no date) (unknown) (unknown) HEENT: moist mucous membranes, PERRL (units unknown) (unknown) (unknown) (no date) (unknown) (unknown) Hct 28.6 L (units unknown) (unknown) (unknown) (no date) (unknown) (unknown) Hct (units unknown) (unknown) (unknown) (no date) (unknown) (unknown) Hgb 9.4 L (units unknown) (unknown) (unknown) (no date) (unknown) (unknown) Hgb (units unknown) (unknown) (unknown) (no date) (unknown) (unknown) I have reviewed home meds and used all available resources to reconcile the home (units unknown) (unknown) (unknown) (no date) (unknown) (unknown) I spent a total of 3 5 minutes of critical care time on this patient's care (units unknown) (unknown) (unknown) (no date) (unknown) (unknown) Insomnia (units unknown) (unknown) (unknown) (no date) (unknown) (unknown) [address] [address] (units unknown) (unknown) (unknown) (no date) (unknown) (unknown) Laboratory Results - last 24 hr (units unknown) (unknown) (unknown) (no date) (unknown) (unknown) Labs (units unknown) (unknown) (unknown) (no date) (unknown) (unknown) Labs: (units unknown) (unknown) (unknown) (no date) (unknown) (unknown) Lymph # (Auto) 1200 (units unknown) (unknown) (unknown) (no date) (unknown) (unknown) Lymph # (Auto) (units unknown) (unknown) (unknown) (no date) (unknown) (unknown) Lymph % (Auto) 24.0 L (units unknown) (unknown) (unknown) (no date) (unknown) (unknown) Lymph % (Auto) (units unknown) (unknown) (unknown) (no date) (unknown) (unknown) MCH 26.6 (units unknown) (unknown) (unknown) (no date) (unknown) (unknown) MCH (units unknown) (unknown) (unknown) (no date) (unknown) (unknown) MCHC 32.8 (units unknown) (unknown) (unknown) (no date) (unknown) (unknown) MCHC (units unknown) (unknown) (unknown) (no date) (unknown) (unknown) MCV 81.1 (units unknown) (unknown) (unknown) (no date) (unknown) (unknown) MCV (units unknown) (unknown) (unknown) (no date) (unknown) (unknown) Magnesium 2.0 (units unknown) (unknown) (unknown) (no date) (unknown) (unknown) Magnesium (units unknown) (unknown) (unknown) (no date) (unknown) (unknown) Medical History (units unknown) (unknown) (unknown) (no date) (unknown) (unknown) Menometrorrhagia (units unknown) (unknown) (unknown) (no date) (unknown) (unknown) [place] # (Auto) 200 (units unknown) (unknown) (unknown) (no date) (unknown) (unknown) [place] # (Auto) (units unknown) (unknown) (unknown) (no date) (unknown) (unknown) [place] % (Auto) 5.0 (units unknown) (unknown) (unknown) (no date) (unknown) (unknown) [place] % (Auto) (units unknown) (unknown) (unknown) (no date) (unknown) (unknown) Mother Diabetes mellitus (units unknown) (unknown) (unknown) (no date) (unknown) (unknown) NECK: trachea midline, no JVD (units unknown) (unknown) (unknown) (no date) (unknown) (unknown) NEURO: awake, alert, oriented, no focal deficits (units unknown) (unknown) (unknown) (no date) (unknown) (unknown) Narrative (units unknown) (unknown) (unknown) (no date) (unknown) (unknown) Nasal Screen MRSA (PCR) Not detected (units unknown) (unknown) (unknown) (no date) (unknown) (unknown) Nasal Screen MRSA (PCR) (units unknown) (unknown) (unknown) (no date) (unknown) (unknown) Neut # (Auto) 3400 (units unknown) (unknown) (unknown) (no date) (unknown) (unknown) Neut # (Auto) (units unknown) (unknown) (unknown) (no date) (unknown) (unknown) Neut % (Auto) 67.3 (units unknown) (unknown) (unknown) (no date) (unknown) (unknown) Neut % (Auto) (units unknown) (unknown) (unknown) (no date) (unknown) (unknown) Obesity (units unknown) (unknown) (unknown) (no date) (unknown) (unknown) Objective (units unknown) (unknown) (unknown) (no date) (unknown) (unknown) Overweight (units unknown) (unknown) (unknown) (no date) (unknown) (unknown) Oxygen Delivery Method Room Air (units unknown) (unknown) (unknown) (no date) (unknown) (unknown) Oxygen Delivery Method (units unknown) (unknown) (unknown) (no date) (unknown) (unknown) Oxygen Flow Rate 0 (units unknown) (unknown) (unknown) (no date) (unknown) (unknown) PFSH (units unknown) (unknown) (unknown) (no date) (unknown) (unknown) PULM: clear bilaterally (units unknown) (unknown) (unknown) (no date) (unknown) (unknown) Patient: Sarah Connors MR#: M (units unknown) (unknown) (unknown) (no date) (unknown) (unknown) Plt Count 157 (units unknown) (unknown) (unknown) (no date) (unknown) (unknown) Plt Count (units unknown) (unknown) (unknown) (no date) (unknown) (unknown) Potassium 3.3 L (units unknown) (unknown) (unknown) (no date) (unknown) (unknown) Potassium (units unknown) (unknown) (unknown) (no date) (unknown) (unknown) Progress Note (units unknown) (unknown) (unknown) (no date) (unknown) (unknown) Provider: Jabari Sena D.O. (units unknown) (unknown) (unknown) (no date) (unknown) (unknown) Proxy is spouse Rober. (units unknown) (unknown) (unknown) (no date) (unknown) (unknown) Pulse Oximetry 97 100 (units unknown) (unknown) (unknown) (no date) (unknown) (unknown) Pulse Oximetry 97 98 98 (units unknown) (unknown) (unknown) (no date) (unknown) (unknown) Pulse Oximetry 98 98 (units unknown) (unknown) (unknown) (no date) (unknown) (unknown) Pulse Rate 49 L 52 L (units unknown) (unknown) (unknown) (no date) (unknown) (unknown) Pulse Rate 55 L 57 L 57 L (units unknown) (unknown) (unknown) (no date) (unknown) (unknown) Pulse Rate 58 L 59 L (units unknown) (unknown) (unknown) (no date) (unknown) (unknown) RBC 3.53 L (units unknown) (unknown) (unknown) (no date) (unknown) (unknown) RBC Morphology See below (units unknown) (unknown) (unknown) (no date) (unknown) (unknown) RBC Morphology (units unknown) (unknown) (unknown) (no date) (unknown) (unknown) RBC (units unknown) (unknown) (unknown) (no date) (unknown) (unknown) RDW 20.1 H (units unknown) (unknown) (unknown) (no date) (unknown) (unknown) RDW (units unknown) (unknown) (unknown) (no date) (unknown) (unknown) Respiratory Rate 17 17 18 (units unknown) (unknown) (unknown) (no date) (unknown) (unknown) Respiratory Rate 18 13 (units unknown) (unknown) (unknown) (no date) (unknown) (unknown) Respiratory Rate 18 17 (units unknown) (unknown) (unknown) (no date) (unknown) (unknown) S/P myringotomy with insertion of tube (units unknown) (unknown) (unknown) (no date) (unknown) (unknown) SARS-CoV-2 (PCR) Negative (units unknown) (unknown) (unknown) (no date) (unknown) (unknown) SARS-CoV-2 (PCR) (units unknown) (unknown) (unknown) (no date) (unknown) (unknown) (spontaneous vaginal delivery) (09/05/18) (units unknown) (unknown) (unknown) (no date) (unknown) (unknown) Signed By: (units unknown) (unknown) (unknown) (no date) (unknown) (unknown) Smoker (units unknown) (unknown) (unknown) (no date) (unknown) (unknown) Smoking Status: Former smoker (units unknown) (unknown) (unknown) (no date) (unknown) (unknown) Social History (units unknown) (unknown) (unknown) (no date) (unknown) (unknown) Sodium 135 L (units unknown) (unknown) (unknown) (no date) (unknown) (unknown) Sodium (units unknown) (unknown) (unknown) (no date) (unknown) (unknown) Surgical History (units unknown) (unknown) (unknown) (no date) (unknown) (unknown) TCA's. EtOH negative. (units unknown) (unknown) (unknown) (no date) (unknown) (unknown) TSH 4.71 H (units unknown) (unknown) (unknown) (no date) (unknown) (unknown) TSH (units unknown) (unknown) (unknown) (no date) (unknown) (unknown) Temperature 98.5 F (units unknown) (unknown) (unknown) (no date) (unknown) (unknown) Temperature 98.7 F (units unknown) (unknown) (unknown) (no date) (unknown) (unknown) Temperature (units unknown) (unknown) (unknown) (no date) (unknown) (unknown) This patient will be admitted as inpatient and will require greater than 2 (units unknown) (unknown) (unknown) (no date) (unknown) (unknown) Vital Signs (units unknown) (unknown) (unknown) (no date) (unknown) (unknown) Vitamin B12 401 (units unknown) (unknown) (unknown) (no date) (unknown) (unknown) Vitamin B12 (units unknown) (unknown) (unknown) (no date) (unknown) (unknown) WBC 5.0 D (units unknown) (unknown) (unknown) (no date) (unknown) (unknown) WBC (units unknown) (unknown) (unknown) (no date) (unknown) (unknown) [Embedded Image Not Available] (units unknown) (unknown) (unknown) (no date) (unknown) (unknown) alcohol intake: current (units unknown) (unknown) (unknown) (no date) (unknown) (unknown) current occupational exposures/hazards: Yes (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 with Pandemic ) (units unknown) (unknown) (unknown) (no date) (unknown) (unknown) education level: college 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 (units unknown) (unknown) (unknown) (no date) (unknown) (unknown) midnights of hospita l time to treat acute alcohol withdrawals with DTs. (units unknown) (unknown) (unknown) (no date) (unknown) (unknown) number of children: 1 (units unknown) (unknown) (unknown) (no date) (unknown) (unknown) occupational status: employed (units unknown) (unknown) (unknown) (no date) (unknown) (unknown) second hand exposure : No (growing up as a child - not currently) (units unknown) (unknown) (unknown) (no date) (unknown) (unknown) special renee needs: No (units unknown) (unknown) (unknown) (no date) (unknown) (unknown) substance use type: does not use (units unknown) (unknown) (unknown) (no date) (unknown) (unknown) today; this time is exclusive of procedural time. (units unknown) (unknown) (unknown) (no date) (unknown) (unknown) when able to take oral meds (units unknown) (unknown) (unknown) (no date) (unknown) (unknown) withdrawal (units unknown) (unknown) (unknown) (no date) (unknown) (unknown) withdrawals symptoms would like be out of window. UDS positive benzos, barbs and (units unknown) (unknown) Result panel 2253 (unknown) (no date) (unknown) (unknown) (no value) (units unknown) (unknown) (unknown) (no date) (unknown) (unknown) (1) Alcohol withdrawal delirium, acute, hyperactive: (units unknown) (unknown) (unknown) (no date) (unknown) (unknown) (2) Alcohol withdrawal: (units unknown) (unknown) (unknown) (no date) (unknown) (unknown) (Critical care time 35 minutes.) (units unknown) (unknown) (unknown) (no date) (unknown) (unknown) (past 8 hours): (units unknown) (unknown) (unknown) (no date) (unknown) (unknown) [id number] (units unknown) (unknown) (unknown) (no date) (unknown) (unknown) 02:00 08/02/22 (units unknown) (unknown) (unknown) (no date) (unknown) (unknown) 07/14/22 [Rx Confirmed 08/01/22] (units unknown) (unknown) (unknown) (no date) (unknown) (unknown) 08/01/22 08/01/22 08/01/22 (units unknown) (unknown) (unknown) (no date) (unknown) (unknown) 08/01/22] (units unknown) (unknown) (unknown) (no date) (unknown) (unknown) 08/02/22 08/02/22 (units unknown) (unknown) (unknown) (no date) (unknown) (unknown) 08/02/22 03:48 (units unknown) (unknown) (unknown) (no date) (unknown) (unknown) 08/02/22 (units unknown) (unknown) (unknown) (no date) (unknown) (unknown) 03:00 08/02/22 (units unknown) (unknown) (unknown) (no date) (unknown) (unknown) 03:48 03:48 (units unknown) (unknown) (unknown) (no date) (unknown) (unknown) 04:00 (units unknown) (unknown) (unknown) (no date) (unknown) (unknown) 05:00 08/02/22 (units unknown) (unknown) (unknown) (no date) (unknown) (unknown) 05:10 05:10 09:25 (units unknown) (unknown) (unknown) (no date) (unknown) (unknown) 06:00 (units unknown) (unknown) (unknown) (no date) (unknown) (unknown) 06:35 08/02/22 (units unknown) (unknown) (unknown) (no date) (unknown) (unknown) 08:10 (units unknown) (unknown) (unknown) (no date) (unknown) (unknown) 08:15 08/02/22 06:01 (units unknown) (unknown) (unknown) (no date) (unknown) (unknown) 2 MCG/KG/HR (units unknown) (unknown) (unknown) (no date) (unknown) (unknown) 21:09 (units unknown) (unknown) (unknown) (no date) (unknown) (unknown) Administration (units unknown) (unknown) (unknown) (no date) (unknown) (unknown) Age/Sex: 31 / F (units unknown) (unknown) (unknown) (no date) (unknown) (unknown) Alcohol Withdrawal (units unknown) (unknown) (unknown) (no date) (unknown) (unknown) Anisocytosis 1+ H (units unknown) (unknown) (unknown) (no date) (unknown) (unknown) Anisocytosis (units unknown) (unknown) (unknown) (no date) (unknown) (unknown) Assessment + Plan narrative: (units unknown) (unknown) (unknown) (no date) (unknown) (unknown) Assessment + Plan (units unknown) (unknown) (unknown) (no date) (unknown) (unknown) Assessment and plan (units unknown) (unknown) (unknown) (no date) (unknown) (unknown) Ativan per CIWA protocol (units unknown) (unknown) (unknown) (no date) (unknown) (unknown) Awake, alert (units unknown) (unknown) (unknown) (no date) (unknown) (unknown) BID SANDY Administration (units unknown) (unknown) (unknown) (no date) (unknown) (unknown) BUN 5 L (units unknown) (unknown) (unknown) (no date) (unknown) (unknown) BUN (units unknown) (unknown) (unknown) (no date) (unknown) (unknown) BUN/Creatinine Ratio 9.3 (units unknown) (unknown) (unknown) (no date) (unknown) (unknown) BUN/Creatinine Ratio (units unknown) (unknown) (unknown) (no date) (unknown) (unknown) Baso # (Auto) 0 (units unknown) (unknown) (unknown) (no date) (unknown) (unknown) Baso # (Auto) (units unknown) (unknown) (unknown) (no date) (unknown) (unknown) Baso % (Auto) 0.8 (units unknown) (unknown) (unknown) (no date) (unknown) (unknown) Baso % (Auto) (units unknown) (unknown) (unknown) (no date) (unknown) (unknown) Blood Pressure 115/7 7 123/76 119/77 (units unknown) (unknown) (unknown) (no date) (unknown) (unknown) Blood Pressure 124/75 (units unknown) (unknown) (unknown) (no date) (unknown) (unknown) CIWAPRN PRN Administration (units unknown) (unknown) (unknown) (no date) (unknown) (unknown) CONT SANDY Administration (units unknown) (unknown) (unknown) (no date) (unknown) (unknown) Calcium 7.9 L (units unknown) (unknown) (unknown) (no date) (unknown) (unknown) Calcium (units unknown) (unknown) (unknown) (no date) (unknown) (unknown) Carbon Dioxide 24 (units unknown) (unknown) (unknown) (no date) (unknown) (unknown) Carbon Dioxide (units unknown) (unknown) (unknown) (no date) (unknown) (unknown) Chlordiazepoxide 25 Mg Capsule PO Not Given (units unknown) (unknown) (unknown) (no date) (unknown) (unknown) Chlordiazepoxide HCl 50 mg 08/01/22 12:00 08/02/22 06:01 (units unknown) (unknown) (unknown) (no date) (unknown) (unknown) Chloride 105 (units unknown) (unknown) (unknown) (no date) (unknown) (unknown) Chloride IV Not Given (units unknown) (unknown) (unknown) (no date) (unknown) (unknown) Chloride (units unknown) (unknown) (unknown) (no date) (unknown) (unknown) Confirmed 08/01/22] (units unknown) (unknown) (unknown) (no date) (unknown) (unknown) 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 Requires ICU for acute alcohol withdrawal (units unknown) (unknown) (unknown) (no date) (unknown) (unknown) Creatinine 0.54 (units unknown) (unknown) (unknown) (no date) (unknown) (unknown) Creatinine (units unknown) (unknown) (unknown) (no date) (unknown) (unknown) Current Medications (units unknown) (unknown) (unknown) (no date) (unknown) (unknown) DAILY SANDY Administration (units unknown) (unknown) (unknown) (no date) (unknown) (unknown) DAILY SANDY (units unknown) (unknown) (unknown) (no date) (unknown) (unknown) : 1990 Acct:[id number] (units unknown) (unknown) (unknown) (no date) (unknown) (unknown) Date Patient Seen: 08/02/22 (units unknown) (unknown) (unknown) (no date) (unknown) (unknown) Date of Service: 08/01/22 (units unknown) (unknown) (unknown) (no date) (unknown) (unknown) Dextrose 5%-Lactated Ringers IV 84 mls/hr (units unknown) (unknown) (unknown) (no date) (unknown) (unknown) Dextrose/Lactated Ringer's 1,000 mls @ 84 mls/hr 08/01/22 20:15 08/01/22 (units unknown) (unknown) (unknown) (no date) (unknown) (unknown) Dr. Sena, hospitalist (units unknown) (unknown) (unknown) (no date) (unknown) (unknown) Eos # (Auto) 100 (units unknown) (unknown) (unknown) (no date) (unknown) (unknown) Eos # (Auto) (units unknown) (unknown) (unknown) (no date) (unknown) (unknown) Eos % (Auto) 2.9 (units unknown) (unknown) (unknown) (no date) (unknown) (unknown) Eos % (Auto) (units unknown) (unknown) (unknown) (no date) (unknown) (unknown) Estimated GFR > 60 (units unknown) (unknown) (unknown) (no date) (unknown) (unknown) Estimated GFR (units unknown) (unknown) (unknown) (no date) (unknown) (unknown) Exam Narrative: (units unknown) (unknown) (unknown) (no date) (unknown) (unknown) Exam (units unknown) (unknown) (unknown) (no date) (unknown) (unknown) Fluoxetine 10 Mg Capsule PO Not Given (units unknown) (unknown) (unknown) (no date) (unknown) (unknown) Fluoxetine HCl 10 mg 08/01/22 09:00 08/02/22 08:11 (units unknown) (unknown) (unknown) (no date) (unknown) (unknown) Folate 11.9 (units unknown) (unknown) (unknown) (no date) (unknown) (unknown) Folate (units unknown) (unknown) (unknown) (no date) (unknown) (unknown) Folic Acid 1 Mg Tablet PO Not Given (units unknown) (unknown) (unknown) (no date) (unknown) (unknown) Folic Acid 1 mg 08/01/22 09:00 08/02/22 08:11 (units unknown) (unknown) (unknown) (no date) (unknown) (unknown) Free T4 1.13 (units unknown) (unknown) (unknown) (no date) (unknown) (unknown) Free T4 (units unknown) (unknown) (unknown) (no date) (unknown) (unknown) Generic Name Dose Route Start Last Admin (units unknown) (unknown) (unknown) (no date) (unknown) (unknown) Given severity of sx : continue current medications today (units unknown) (unknown) (unknown) (no date) (unknown) (unknown) Glucose 122 H (units unknown) (unknown) (unknown) (no date) (unknown) (unknown) Glucose (units unknown) (unknown) (unknown) (no date) (unknown) (unknown) Hct 28.6 L (units unknown) (unknown) (unknown) (no date) (unknown) (unknown) Hct (units unknown) (unknown) (unknown) (no date) (unknown) (unknown) Hgb 9.4 L (units unknown) (unknown) (unknown) (no date) (unknown) (unknown) Hgb (units unknown) (unknown) (unknown) (no date) (unknown) (unknown) Home Medications (units unknown) (unknown) (unknown) (no date) (unknown) (unknown) Hydroxyzine Pamoate 25 Mg Capsule PO Not Given (units unknown) (unknown) (unknown) (no date) (unknown) (unknown) Hydroxyzine Pamoate 50 mg 08/01/22 09:00 08/02/22 08:11 (units unknown) (unknown) (unknown) (no date) (unknown) (unknown) IF CAMERA ACTIVATED, patient seen via real-time interactive audiovisual (units unknown) (unknown) (unknown) (no date) (unknown) (unknown) Interval history: (units unknown) (unknown) (unknown) (no date) (unknown) (unknown) [address] [address] (units unknown) (unknown) (unknown) (no date) (unknown) (unknown) Laboratory Results - last 24 hr (units unknown) (unknown) (unknown) (no date) (unknown) (unknown) Labs (units unknown) (unknown) (unknown) (no date) (unknown) (unknown) Labs: (units unknown) (unknown) (unknown) (no date) (unknown) (unknown) Lorazepam 0 mg 08/01/22 08:00 08/01/22 10:20 (units unknown) (unknown) (unknown) (no date) (unknown) (unknown) Lorazepam 2 Mg/Ml In j IV 2 mg (units unknown) (unknown) (unknown) (no date) (unknown) (unknown) Lymph # (Auto) 1200 (units unknown) (unknown) (unknown) (no date) (unknown) (unknown) Lymph # (Auto) (units unknown) (unknown) (unknown) (no date) (unknown) (unknown) Lymph % (Auto) 24.0 L (units unknown) (unknown) (unknown) (no date) (unknown) (unknown) Lymph % (Auto) (units unknown) (unknown) (unknown) (no date) (unknown) (unknown) MCH 26.6 (units unknown) (unknown) (unknown) (no date) (unknown) (unknown) MCH (units unknown) (unknown) (unknown) (no date) (unknown) (unknown) MCHC 32.8 (units unknown) (unknown) (unknown) (no date) (unknown) (unknown) MCHC (units unknown) (unknown) (unknown) (no date) (unknown) (unknown) MCV 81.1 (units unknown) (unknown) (unknown) (no date) (unknown) (unknown) MCV (units unknown) (unknown) (unknown) (no date) (unknown) (unknown) MVI, folate, thiamine (units unknown) (unknown) (unknown) (no date) (unknown) (unknown) Medications: (units unknown) (unknown) (unknown) (no date) (unknown) (unknown) Mental status improving (units unknown) (unknown) (unknown) (no date) (unknown) (unknown) [place] # (Auto) 200 (units unknown) (unknown) (unknown) (no date) (unknown) (unknown) [place] # (Auto) (units unknown) (unknown) (unknown) (no date) (unknown) (unknown) [place] % (Auto) 5.0 (units unknown) (unknown) (unknown) (no date) (unknown) (unknown) [place] % (Auto) (units unknown) (unknown) (unknown) (no date) (unknown) (unknown) Multivitamin 1 Table t PO Not Given (units unknown) (unknown) (unknown) (no date) (unknown) (unknown) Multivitamins 1 tab 08/01/22 09:00 08/02/22 08:11 (units unknown) (unknown) (unknown) (no date) (unknown) (unknown) Narrative (units unknown) (unknown) (unknown) (no date) (unknown) (unknown) Nasal Screen MRSA (PCR) Not detected (units unknown) (unknown) (unknown) (no date) (unknown) (unknown) Nasal Screen MRSA (PCR) (units unknown) (unknown) (unknown) (no date) (unknown) (unknown) Neut # (Auto) 3400 (units unknown) (unknown) (unknown) (no date) (unknown) (unknown) Neut # (Auto) (units unknown) (unknown) (unknown) (no date) (unknown) (unknown) Neut % (Auto) 67.3 (units unknown) (unknown) (unknown) (no date) (unknown) (unknown) Neut % (Auto) (units unknown) (unknown) (unknown) (no date) (unknown) (unknown) Objective (units unknown) (unknown) (unknown) (no date) (unknown) (unknown) 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: Bedside RN (units unknown) (unknown) (unknown) (no date) (unknown) (unknown) Other: (units unknown) (unknown) (unknown) (no date) (unknown) (unknown) Oxygen Delivery Method Room Air (units unknown) (unknown) (unknown) (no date) (unknown) (unknown) Oxygen Delivery Method (units unknown) (unknown) (unknown) (no date) (unknown) (unknown) Oxygen Flow Rate 0 (units unknown) (unknown) (unknown) (no date) (unknown) (unknown) Pantoprazole 40 Mg Vial IV 40 mg (units unknown) (unknown) (unknown) (no date) (unknown) (unknown) Pantoprazole Sodium 40 mg 08/01/22 09:00 08/01/22 08:21 (units unknown) (unknown) (unknown) (no date) (unknown) (unknown) Patient Location: ICU (units unknown) (unknown) (unknown) (no date) (unknown) (unknown) Patient remains on precedex gtt, CIWA with benzos (units unknown) (unknown) (unknown) (no date) (unknown) (unknown) Patient: Sarah Connors MR#: M (units unknown) (unknown) (unknown) (no date) (unknown) (unknown) Phenobarbital 60 mg 08/01/22 09:00 08/01/22 21:26 (units unknown) (unknown) (unknown) (no date) (unknown) (unknown) Phenobarbital 65 Mg/Ml Vial IV 60 mg (units unknown) (unknown) (unknown) (no date) (unknown) (unknown) Plan for trial of weaning precedex tomorrow am (units unknown) (unknown) (unknown) (no date) (unknown) (unknown) Plan (units unknown) (unknown) (unknown) (no date) (unknown) (unknown) Plt Count 157 (units unknown) (unknown) (unknown) (no date) (unknown) (unknown) Plt Count (units unknown) (unknown) (unknown) (no date) (unknown) (unknown) Potassium 3.3 L (units unknown) (unknown) (unknown) (no date) (unknown) (unknown) Potassium (units unknown) (unknown) (unknown) (no date) (unknown) (unknown) Precedex IV 1 mcg/kg/hr (units unknown) (unknown) (unknown) (no date) (unknown) (unknown) Precedex gtt, scheduled phenobarb, librium (units unknown) (unknown) (unknown) (no date) (unknown) (unknown) Protocol (units unknown) (unknown) (unknown) (no date) (unknown) (unknown) Provider location (State): [place] (units unknown) (unknown) (unknown) (no date) (unknown) (unknown) Provider: Shameka Prince MD (units unknown) (unknown) (unknown) (no date) (unknown) (unknown) Pulse Oximetry 97 100 (units unknown) (unknown) (unknown) (no date) (unknown) (unknown) Pulse Oximetry 97 98 98 (units unknown) (unknown) (unknown) (no date) (unknown) (unknown) Pulse Rate 55 L 57 L 57 L (units unknown) (unknown) (unknown) (no date) (unknown) (unknown) Pulse Rate 58 L 59 L (units unknown) (unknown) (unknown) (no date) (unknown) (unknown) Pyridoxine 100 Mg/Ml Vial IV Not Given (units unknown) (unknown) (unknown) (no date) (unknown) (unknown) Pyridoxine HCl 100 m g 08/01/22 09:00 08/01/22 09:35 (units unknown) (unknown) (unknown) (no date) (unknown) (unknown) Q6HR SANDY (units unknown) (unknown) (unknown) (no date) (unknown) (unknown) RBC 3.53 L (units unknown) (unknown) (unknown) (no date) (unknown) (unknown) RBC Morphology See below (units unknown) (unknown) (unknown) (no date) (unknown) (unknown) RBC Morphology (units unknown) (unknown) (unknown) (no date) (unknown) (unknown) RBC (units unknown) (unknown) (unknown) (no date) (unknown) (unknown) RDW 20.1 H (units unknown) (unknown) (unknown) (no date) (unknown) (unknown) RDW (units unknown) (unknown) (unknown) (no date) (unknown) (unknown) Remains in ICU for acute alcohol withdrawal with DT's (units unknown) (unknown) (unknown) (no date) (unknown) (unknown) Resp (units unknown) (unknown) (unknown) (no date) (unknown) (unknown) Respiratory Rate 17 17 18 (units unknown) (unknown) (unknown) (no date) (unknown) (unknown) Respiratory Rate 18 17 (units unknown) (unknown) (unknown) (no date) (unknown) (unknown) Signed By: (units unknown) (unknown) (unknown) (no date) (unknown) (unknown) Sodium 135 L (units unknown) (unknown) (unknown) (no date) (unknown) (unknown) Sodium (units unknown) (unknown) (unknown) (no date) (unknown) (unknown) Status: Acute (units unknown) (unknown) (unknown) (no date) (unknown) (unknown) Subjective (units unknown) (unknown) (unknown) (no date) (unknown) (unknown) TITRATE SANDY 13.494 mls/hr (units unknown) (unknown) (unknown) (no date) (unknown) (unknown) Teleintensivist Progress Note (units unknown) (unknown) (unknown) (no date) (unknown) (unknown) Temperature 98.7 F (units unknown) (unknown) (unknown) (no date) (unknown) (unknown) Temperature (units unknown) (unknown) (unknown) (no date) (unknown) (unknown) Thiamine HCl 100 mg/ Sodium 101 mls @ 404 mls/hr 08/01/22 09:00 08/01/22 (units unknown) (unknown) (unknown) (no date) (unknown) (unknown) Time Spent With Patient (units unknown) (unknown) (unknown) (no date) (unknown) (unknown) Time with patient: 3 0 to 49 minutes with 50% spent counseling/coordinati ng care (units unknown) (unknown) (unknown) (no date) (unknown) (unknown) Trade Name [employer] PRN Reason Stop Dose Admin (units unknown) (unknown) (unknown) (no date) (unknown) (unknown) Visit Medications (administered) (units unknown) (unknown) (unknown) (no date) (unknown) (unknown) Vital Signs (units unknown) (unknown) (unknown) (no date) (unknown) (unknown) Vitamin B12 401 (units unknown) (unknown) (unknown) (no date) (unknown) (unknown) Vitamin B12 (units unknown) (unknown) (unknown) (no date) (unknown) (unknown) WBC 5.0 D (units unknown) (unknown) (unknown) (no date) (unknown) (unknown) WBC (units unknown) (unknown) (unknown) (no date) (unknown) (unknown) [Embedded Image Not Available] (units unknown) (unknown) (unknown) (no date) (unknown) (unknown) [Rx Confirmed 08/01/22] (units unknown) (unknown) (unknown) (no date) (unknown) (unknown) along with scheduled phenobarb, librium (units unknown) (unknown) (unknown) (no date) (unknown) (unknown) communication: Camer a activated (units unknown) (unknown) (unknown) (no date) (unknown) (unknown) dexmedeTOMIDine in 0.9 % NaCL 400 mcg in 100 mls @ 26.989 mls/hr 08/01/22 (units unknown) (unknown) (unknown) (no date) (unknown) (unknown) fluoxetine 10 mg capsule 10 mg PO DAILY 07/13/22 [History Confirmed 08/01/22] (units unknown) (unknown) (unknown) (no date) (unknown) (unknown) gentle hydration (units unknown) (unknown) (unknown) (no date) (unknown) (unknown) hydroxyzine HCl 50 m g tablet 50 mg PO DAILY 07/13/22 [History Confirmed (units unknown) (unknown) (unknown) (no date) (unknown) (unknown) management (units unknown) (unknown) (unknown) (no date) (unknown) (unknown) multivitamin with folic acid 400 mcg tablet (Tab-A-Kael) 1 tab PO DAILY #30 tabs (units unknown) (unknown) (unknown) (no date) (unknown) (unknown) no apparent distress (units unknown) (unknown) (unknown) (no date) (unknown) (unknown) pantoprazole 40 mg tablet,delayed release 40 mg PO 0700 #30 tabs 07/14/22 [Rx (units unknown) (unknown) (unknown) (no date) (unknown) (unknown) quetiapine 300 mg tablet 300 mg PO DAILY 07/13/22 [History Confirmed 08/01/22] (units unknown) (unknown) (unknown) (no date) (unknown) (unknown) replace K (units unknown) (unknown) (unknown) (no date) (unknown) (unknown) thiamine mononitrate (vit B1) 100 mg tablet 100 mg PO DAILY #30 tabs 07/14/22 (units unknown) (unknown) Result panel 2254 (unknown) (no date) (unknown) (unknown) (no value) (units unknown) (unknown) (unknown) (no date) (unknown) (unknown) (1) Alcohol withdrawal delirium, acute, hyperactive: (units unknown) (unknown) (unknown) (no date) (unknown) (unknown) (2) Alcohol withdrawal: (units unknown) (unknown) (unknown) (no date) (unknown) (unknown) (Critical care time 35 minutes.) (units unknown) (unknown) (unknown) (no date) (unknown) (unknown) (past 8 hours): (units unknown) (unknown) (unknown) (no date) (unknown) (unknown) [id number] (units unknown) (unknown) (unknown) (no date) (unknown) (unknown) 02:00 08/02/22 (units unknown) (unknown) (unknown) (no date) (unknown) (unknown) 07/14/22 [Rx Confirmed 08/01/22] (units unknown) (unknown) (unknown) (no date) (unknown) (unknown) 08/01/22 08/01/22 08/01/22 (units unknown) (unknown) (unknown) (no date) (unknown) (unknown) 08/01/22] (units unknown) (unknown) (unknown) (no date) (unknown) (unknown) 08/02/22 08/02/22 (units unknown) (unknown) (unknown) (no date) (unknown) (unknown) 08/02/22 03:48 (units unknown) (unknown) (unknown) (no date) (unknown) (unknown) 08/02/22 (units unknown) (unknown) (unknown) (no date) (unknown) (unknown) 03:00 08/02/22 (units unknown) (unknown) (unknown) (no date) (unknown) (unknown) 03:48 03:48 (units unknown) (unknown) (unknown) (no date) (unknown) (unknown) 04:00 (units unknown) (unknown) (unknown) (no date) (unknown) (unknown) 05:00 08/02/22 (units unknown) (unknown) (unknown) (no date) (unknown) (unknown) 05:10 05:10 09:25 (units unknown) (unknown) (unknown) (no date) (unknown) (unknown) 06:00 (units unknown) (unknown) (unknown) (no date) (unknown) (unknown) 06:35 08/02/22 (units unknown) (unknown) (unknown) (no date) (unknown) (unknown) 08:10 (units unknown) (unknown) (unknown) (no date) (unknown) (unknown) 08:15 08/02/22 06:01 (units unknown) (unknown) (unknown) (no date) (unknown) (unknown) 2 MCG/KG/HR (units unknown) (unknown) (unknown) (no date) (unknown) (unknown) 21:09 (units unknown) (unknown) (unknown) (no date) (unknown) (unknown) Administration (units unknown) (unknown) (unknown) (no date) (unknown) (unknown) Age/Sex: 31 / F (units unknown) (unknown) (unknown) (no date) (unknown) (unknown) Alcohol Withdrawal (units unknown) (unknown) (unknown) (no date) (unknown) (unknown) Anisocytosis 1+ H (units unknown) (unknown) (unknown) (no date) (unknown) (unknown) Anisocytosis (units unknown) (unknown) (unknown) (no date) (unknown) (unknown) Assessment + Plan narrative: (units unknown) (unknown) (unknown) (no date) (unknown) (unknown) Assessment + Plan (units unknown) (unknown) (unknown) (no date) (unknown) (unknown) Assessment and plan (units unknown) (unknown) (unknown) (no date) (unknown) (unknown) Ativan per CIWA protocol (units unknown) (unknown) (unknown) (no date) (unknown) (unknown) Awake, alert (units unknown) (unknown) (unknown) (no date) (unknown) (unknown) BID SANDY Administration (units unknown) (unknown) (unknown) (no date) (unknown) (unknown) BUN 5 L (units unknown) (unknown) (unknown) (no date) (unknown) (unknown) BUN (units unknown) (unknown) (unknown) (no date) (unknown) (unknown) BUN/Creatinine Ratio 9.3 (units unknown) (unknown) (unknown) (no date) (unknown) (unknown) BUN/Creatinine Ratio (units unknown) (unknown) (unknown) (no date) (unknown) (unknown) Baso # (Auto) 0 (units unknown) (unknown) (unknown) (no date) (unknown) (unknown) Baso # (Auto) (units unknown) (unknown) (unknown) (no date) (unknown) (unknown) Baso % (Auto) 0.8 (units unknown) (unknown) (unknown) (no date) (unknown) (unknown) Baso % (Auto) (units unknown) (unknown) (unknown) (no date) (unknown) (unknown) Blood Pressure 115/7 7 123/76 119/77 (units unknown) (unknown) (unknown) (no date) (unknown) (unknown) Blood Pressure 124/75 (units unknown) (unknown) (unknown) (no date) (unknown) (unknown) CIWAPRN PRN Administration (units unknown) (unknown) (unknown) (no date) (unknown) (unknown) CONT SANDY Administration (units unknown) (unknown) (unknown) (no date) (unknown) (unknown) Calcium 7.9 L (units unknown) (unknown) (unknown) (no date) (unknown) (unknown) Calcium (units unknown) (unknown) (unknown) (no date) (unknown) (unknown) Carbon Dioxide 24 (units unknown) (unknown) (unknown) (no date) (unknown) (unknown) Carbon Dioxide (units unknown) (unknown) (unknown) (no date) (unknown) (unknown) Chlordiazepoxide 25 Mg Capsule PO Not Given (units unknown) (unknown) (unknown) (no date) (unknown) (unknown) Chlordiazepoxide HCl 50 mg 08/01/22 12:00 08/02/22 06:01 (units unknown) (unknown) (unknown) (no date) (unknown) (unknown) Chloride 105 (units unknown) (unknown) (unknown) (no date) (unknown) (unknown) Chloride IV Not Given (units unknown) (unknown) (unknown) (no date) (unknown) (unknown) Chloride (units unknown) (unknown) (unknown) (no date) (unknown) (unknown) Confirmed 08/01/22] (units unknown) (unknown) (unknown) (no date) (unknown) (unknown) 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 Requires ICU for acute alcohol withdrawal (units unknown) (unknown) (unknown) (no date) (unknown) (unknown) Creatinine 0.54 (units unknown) (unknown) (unknown) (no date) (unknown) (unknown) Creatinine (units unknown) (unknown) (unknown) (no date) (unknown) (unknown) Current Medications (units unknown) (unknown) (unknown) (no date) (unknown) (unknown) DAILY SANDY Administration (units unknown) (unknown) (unknown) (no date) (unknown) (unknown) DAILY SANDY (units unknown) (unknown) (unknown) (no date) (unknown) (unknown) : 1990 Acct:[id number] (units unknown) (unknown) (unknown) (no date) (unknown) (unknown) Date Patient Seen: 08/02/22 (units unknown) (unknown) (unknown) (no date) (unknown) (unknown) Date of Service: 08/01/22 (units unknown) (unknown) (unknown) (no date) (unknown) (unknown) Dextrose 5%-Lactated Ringers IV 84 mls/hr (units unknown) (unknown) (unknown) (no date) (unknown) (unknown) Dextrose/Lactated Ringer's 1,000 mls @ 84 mls/hr 08/01/22 20:15 08/01/22 (units unknown) (unknown) (unknown) (no date) (unknown) (unknown) Dr. Sena, hospitalist (units unknown) (unknown) (unknown) (no date) (unknown) (unknown) Eos # (Auto) 100 (units unknown) (unknown) (unknown) (no date) (unknown) (unknown) Eos # (Auto) (units unknown) (unknown) (unknown) (no date) (unknown) (unknown) Eos % (Auto) 2.9 (units unknown) (unknown) (unknown) (no date) (unknown) (unknown) Eos % (Auto) (units unknown) (unknown) (unknown) (no date) (unknown) (unknown) Estimated GFR > 60 (units unknown) (unknown) (unknown) (no date) (unknown) (unknown) Estimated GFR (units unknown) (unknown) (unknown) (no date) (unknown) (unknown) Exam Narrative: (units unknown) (unknown) (unknown) (no date) (unknown) (unknown) Exam (units unknown) (unknown) (unknown) (no date) (unknown) (unknown) Fluoxetine 10 Mg Capsule PO Not Given (units unknown) (unknown) (unknown) (no date) (unknown) (unknown) Fluoxetine HCl 10 mg 08/01/22 09:00 08/02/22 08:11 (units unknown) (unknown) (unknown) (no date) (unknown) (unknown) Folate 11.9 (units unknown) (unknown) (unknown) (no date) (unknown) (unknown) Folate (units unknown) (unknown) (unknown) (no date) (unknown) (unknown) Folic Acid 1 Mg Tablet PO Not Given (units unknown) (unknown) (unknown) (no date) (unknown) (unknown) Folic Acid 1 mg 08/01/22 09:00 08/02/22 08:11 (units unknown) (unknown) (unknown) (no date) (unknown) (unknown) Free T4 1.13 (units unknown) (unknown) (unknown) (no date) (unknown) (unknown) Free T4 (units unknown) (unknown) (unknown) (no date) (unknown) (unknown) Generic Name Dose Route Start Last Admin (units unknown) (unknown) (unknown) (no date) (unknown) (unknown) Given severity of sx : continue current medications today (units unknown) (unknown) (unknown) (no date) (unknown) (unknown) Glucose 122 H (units unknown) (unknown) (unknown) (no date) (unknown) (unknown) Glucose (units unknown) (unknown) (unknown) (no date) (unknown) (unknown) Hct 28.6 L (units unknown) (unknown) (unknown) (no date) (unknown) (unknown) Hct (units unknown) (unknown) (unknown) (no date) (unknown) (unknown) Hgb 9.4 L (units unknown) (unknown) (unknown) (no date) (unknown) (unknown) Hgb (units unknown) (unknown) (unknown) (no date) (unknown) (unknown) Home Medications (units unknown) (unknown) (unknown) (no date) (unknown) (unknown) Hydroxyzine Pamoate 25 Mg Capsule PO Not Given (units unknown) (unknown) (unknown) (no date) (unknown) (unknown) Hydroxyzine Pamoate 50 mg 08/01/22 09:00 08/02/22 08:11 (units unknown) (unknown) (unknown) (no date) (unknown) (unknown) IF CAMERA ACTIVATED, patient seen via real-time interactive audiovisual (units unknown) (unknown) (unknown) (no date) (unknown) (unknown) Interval history: (units unknown) (unknown) (unknown) (no date) (unknown) (unknown) [address] [id number] (units unknown) (unknown) (unknown) (no date) (unknown) (unknown) Laboratory Results - last 24 hr (units unknown) (unknown) (unknown) (no date) (unknown) (unknown) Labs (units unknown) (unknown) (unknown) (no date) (unknown) (unknown) Labs: (units unknown) (unknown) (unknown) (no date) (unknown) (unknown) Lorazepam 0 mg 08/01/22 08:00 08/01/22 10:20 (units unknown) (unknown) (unknown) (no date) (unknown) (unknown) Lorazepam 2 Mg/Ml In j IV 2 mg (units unknown) (unknown) (unknown) (no date) (unknown) (unknown) Lymph # (Auto) 1200 (units unknown) (unknown) (unknown) (no date) (unknown) (unknown) Lymph # (Auto) (units unknown) (unknown) (unknown) (no date) (unknown) (unknown) Lymph % (Auto) 24.0 L (units unknown) (unknown) (unknown) (no date) (unknown) (unknown) Lymph % (Auto) (units unknown) (unknown) (unknown) (no date) (unknown) (unknown) MCH 26.6 (units unknown) (unknown) (unknown) (no date) (unknown) (unknown) MCH (units unknown) (unknown) (unknown) (no date) (unknown) (unknown) MCHC 32.8 (units unknown) (unknown) (unknown) (no date) (unknown) (unknown) MCHC (units unknown) (unknown) (unknown) (no date) (unknown) (unknown) MCV 81.1 (units unknown) (unknown) (unknown) (no date) (unknown) (unknown) MCV (units unknown) (unknown) (unknown) (no date) (unknown) (unknown) MVI, folate, thiamine (units unknown) (unknown) (unknown) (no date) (unknown) (unknown) Medications: (units unknown) (unknown) (unknown) (no date) (unknown) (unknown) Mental status improving (units unknown) (unknown) (unknown) (no date) (unknown) (unknown) [place] # (Auto) 200 (units unknown) (unknown) (unknown) (no date) (unknown) (unknown) [place] # (Auto) (units unknown) (unknown) (unknown) (no date) (unknown) (unknown) [place] % (Auto) 5.0 (units unknown) (unknown) (unknown) (no date) (unknown) (unknown) [place] % (Auto) (units unknown) (unknown) (unknown) (no date) (unknown) (unknown) Multivitamin 1 Table t PO Not Given (units unknown) (unknown) (unknown) (no date) (unknown) (unknown) Multivitamins 1 tab 08/01/22 09:00 08/02/22 08:11 (units unknown) (unknown) (unknown) (no date) (unknown) (unknown) Narrative (units unknown) (unknown) (unknown) (no date) (unknown) (unknown) Nasal Screen MRSA (PCR) Not detected (units unknown) (unknown) (unknown) (no date) (unknown) (unknown) Nasal Screen MRSA (PCR) (units unknown) (unknown) (unknown) (no date) (unknown) (unknown) Neut # (Auto) 3400 (units unknown) (unknown) (unknown) (no date) (unknown) (unknown) Neut # (Auto) (units unknown) (unknown) (unknown) (no date) (unknown) (unknown) Neut % (Auto) 67.3 (units unknown) (unknown) (unknown) (no date) (unknown) (unknown) Neut % (Auto) (units unknown) (unknown) (unknown) (no date) (unknown) (unknown) Objective (units unknown) (unknown) (unknown) (no date) (unknown) (unknown) 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: Bedside RN (units unknown) (unknown) (unknown) (no date) (unknown) (unknown) Other: (units unknown) (unknown) (unknown) (no date) (unknown) (unknown) Oxygen Delivery Method Room Air (units unknown) (unknown) (unknown) (no date) (unknown) (unknown) Oxygen Delivery Method (units unknown) (unknown) (unknown) (no date) (unknown) (unknown) Oxygen Flow Rate 0 (units unknown) (unknown) (unknown) (no date) (unknown) (unknown) PPx: SUP- PPI (units unknown) (unknown) (unknown) (no date) (unknown) (unknown) Pantoprazole 40 Mg Vial IV 40 mg (units unknown) (unknown) (unknown) (no date) (unknown) (unknown) Pantoprazole Sodium 40 mg 08/01/22 09:00 08/01/22 08:21 (units unknown) (unknown) (unknown) (no date) (unknown) (unknown) Patient Location: ICU (units unknown) (unknown) (unknown) (no date) (unknown) (unknown) Patient remains on precedex gtt, CIWA with benzos (units unknown) (unknown) (unknown) (no date) (unknown) (unknown) Patient: Sarah Connors MR#: M (units unknown) (unknown) (unknown) (no date) (unknown) (unknown) Phenobarbital 60 mg 08/01/22 09:00 08/01/22 21:26 (units unknown) (unknown) (unknown) (no date) (unknown) (unknown) Phenobarbital 65 Mg/Ml Vial IV 60 mg (units unknown) (unknown) (unknown) (no date) (unknown) (unknown) Plan for trial of weaning precedex tomorrow am (units unknown) (unknown) (unknown) (no date) (unknown) (unknown) Plan (units unknown) (unknown) (unknown) (no date) (unknown) (unknown) Plt Count 157 (units unknown) (unknown) (unknown) (no date) (unknown) (unknown) Plt Count (units unknown) (unknown) (unknown) (no date) (unknown) (unknown) Potassium 3.3 L (units unknown) (unknown) (unknown) (no date) (unknown) (unknown) Potassium (units unknown) (unknown) (unknown) (no date) (unknown) (unknown) Precedex IV 1 mcg/kg/hr (units unknown) (unknown) (unknown) (no date) (unknown) (unknown) Precedex gtt, scheduled phenobarb, librium (units unknown) (unknown) (unknown) (no date) (unknown) (unknown) Protocol (units unknown) (unknown) (unknown) (no date) (unknown) (unknown) Provider location (State): [place] (units unknown) (unknown) (unknown) (no date) (unknown) (unknown) Provider: Shameka Prince MD (units unknown) (unknown) (unknown) (no date) (unknown) (unknown) Pulse Oximetry 97 100 (units unknown) (unknown) (unknown) (no date) (unknown) (unknown) Pulse Oximetry 97 98 98 (units unknown) (unknown) (unknown) (no date) (unknown) (unknown) Pulse Rate 55 L 57 L 57 L (units unknown) (unknown) (unknown) (no date) (unknown) (unknown) Pulse Rate 58 L 59 L (units unknown) (unknown) (unknown) (no date) (unknown) (unknown) Pyridoxine 100 Mg/Ml Vial IV Not Given (units unknown) (unknown) (unknown) (no date) (unknown) (unknown) Pyridoxine HCl 100 m g 08/01/22 09:00 08/01/22 09:35 (units unknown) (unknown) (unknown) (no date) (unknown) (unknown) Q6HR SANDY (units unknown) (unknown) (unknown) (no date) (unknown) (unknown) RBC 3.53 L (units unknown) (unknown) (unknown) (no date) (unknown) (unknown) RBC Morphology See below (units unknown) (unknown) (unknown) (no date) (unknown) (unknown) RBC Morphology (units unknown) (unknown) (unknown) (no date) (unknown) (unknown) RBC (units unknown) (unknown) (unknown) (no date) (unknown) (unknown) RDW 20.1 H (units unknown) (unknown) (unknown) (no date) (unknown) (unknown) RDW (units unknown) (unknown) (unknown) (no date) (unknown) (unknown) Remains in ICU for acute alcohol withdrawal with DT's (units unknown) (unknown) (unknown) (no date) (unknown) (unknown) Resp (units unknown) (unknown) (unknown) (no date) (unknown) (unknown) Respiratory Rate 17 17 18 (units unknown) (unknown) (unknown) (no date) (unknown) (unknown) Respiratory Rate 18 17 (units unknown) (unknown) (unknown) (no date) (unknown) (unknown) Signed By: (units unknown) (unknown) (unknown) (no date) (unknown) (unknown) Sodium 135 L (units unknown) (unknown) (unknown) (no date) (unknown) (unknown) Sodium (units unknown) (unknown) (unknown) (no date) (unknown) (unknown) Status: Acute (units unknown) (unknown) (unknown) (no date) (unknown) (unknown) Subjective (units unknown) (unknown) (unknown) (no date) (unknown) (unknown) TITRATE SANDY 13.494 mls/hr (units unknown) (unknown) (unknown) (no date) (unknown) (unknown) Teleintensivist Progress Note (units unknown) (unknown) (unknown) (no date) (unknown) (unknown) Temperature 98.7 F (units unknown) (unknown) (unknown) (no date) (unknown) (unknown) Temperature (units unknown) (unknown) (unknown) (no date) (unknown) (unknown) Thiamine HCl 100 mg/ Sodium 101 mls @ 404 mls/hr 08/01/22 09:00 08/01/22 (units unknown) (unknown) (unknown) (no date) (unknown) (unknown) Time Spent With Patient (units unknown) (unknown) (unknown) (no date) (unknown) (unknown) Time with patient: 3 0 to 49 minutes with 50% spent counseling/coordinati ng care (units unknown) (unknown) (unknown) (no date) (unknown) (unknown) Trade Name Fre PRN Reason Stop Dose Admin (units unknown) (unknown) (unknown) (no date) (unknown) (unknown) VTE, SCD's encourage mobility as able (units unknown) (unknown) (unknown) (no date) (unknown) (unknown) Visit Medications (administered) (units unknown) (unknown) (unknown) (no date) (unknown) (unknown) Vital Signs (units unknown) (unknown) (unknown) (no date) (unknown) (unknown) Vitamin B12 401 (units unknown) (unknown) (unknown) (no date) (unknown) (unknown) Vitamin B12 (units unknown) (unknown) (unknown) (no date) (unknown) (unknown) WBC 5.0 D (units unknown) (unknown) (unknown) (no date) (unknown) (unknown) WBC (units unknown) (unknown) (unknown) (no date) (unknown) (unknown) [Embedded Image Not Available] (units unknown) (unknown) (unknown) (no date) (unknown) (unknown) [Rx Confirmed 08/01/22] (units unknown) (unknown) (unknown) (no date) (unknown) (unknown) along with scheduled phenobarb, librium (units unknown) (unknown) (unknown) (no date) (unknown) (unknown) communication: Camer a activated (units unknown) (unknown) (unknown) (no date) (unknown) (unknown) dexmedeTOMIDine in 0.9 % NaCL 400 mcg in 100 mls @ 26.989 mls/hr 08/01/22 (units unknown) (unknown) (unknown) (no date) (unknown) (unknown) fluoxetine 10 mg capsule 10 mg PO DAILY 07/13/22 [History Confirmed 08/01/22] (units unknown) (unknown) (unknown) (no date) (unknown) (unknown) gentle hydration (units unknown) (unknown) (unknown) (no date) (unknown) (unknown) hydroxyzine HCl 50 m g tablet 50 mg PO DAILY 07/13/22 [History Confirmed (units unknown) (unknown) (unknown) (no date) (unknown) (unknown) management (units unknown) (unknown) (unknown) (no date) (unknown) (unknown) multivitamin with folic acid 400 mcg tablet (Tab-A-Kael) 1 tab PO DAILY #30 tabs (units unknown) (unknown) (unknown) (no date) (unknown) (unknown) no apparent distress (units unknown) (unknown) (unknown) (no date) (unknown) (unknown) pantoprazole 40 mg tablet,delayed release 40 mg PO 0700 #30 tabs 07/14/22 [Rx (units unknown) (unknown) (unknown) (no date) (unknown) (unknown) quetiapine 300 mg tablet 300 mg PO DAILY 07/13/22 [History Confirmed 08/01/22] (units unknown) (unknown) (unknown) (no date) (unknown) (unknown) replace K (units unknown) (unknown) (unknown) (no date) (unknown) (unknown) thiamine mononitrate (vit B1) 100 mg tablet 100 mg PO DAILY #30 tabs 07/14/22 (units unknown) (unknown) Result panel 2255 (unknown) (no date) (unknown) (unknown) (no value) (units unknown) (unknown) (unknown) (no date) (unknown) (unknown) (1) Alcohol withdrawal delirium, acute, hyperactive: (units unknown) (unknown) (unknown) (no date) (unknown) (unknown) (2) Alcohol withdrawal: (units unknown) (unknown) (unknown) (no date) (unknown) (unknown) (Critical care time 35 minutes.) (units unknown) (unknown) (unknown) (no date) (unknown) (unknown) (past 8 hours): (units unknown) (unknown) (unknown) (no date) (unknown) (unknown) [id number] (units unknown) (unknown) (unknown) (no date) (unknown) (unknown) 02:00 08/02/22 (units unknown) (unknown) (unknown) (no date) (unknown) (unknown) 07/14/22 [Rx Confirmed 08/01/22] (units unknown) (unknown) (unknown) (no date) (unknown) (unknown) 08/01/22 08/01/22 08/01/22 (units unknown) (unknown) (unknown) (no date) (unknown) (unknown) 08/01/22] (units unknown) (unknown) (unknown) (no date) (unknown) (unknown) 08/02/22 08/02/22 (units unknown) (unknown) (unknown) (no date) (unknown) (unknown) 08/02/22 03:48 (units unknown) (unknown) (unknown) (no date) (unknown) (unknown) 08/02/22 1001 (units unknown) (unknown) (unknown) (no date) (unknown) (unknown) 08/02/22 (units unknown) (unknown) (unknown) (no date) (unknown) (unknown) 03:00 08/02/22 (units unknown) (unknown) (unknown) (no date) (unknown) (unknown) 03:48 03:48 (units unknown) (unknown) (unknown) (no date) (unknown) (unknown) 04:00 (units unknown) (unknown) (unknown) (no date) (unknown) (unknown) 05:00 08/02/22 (units unknown) (unknown) (unknown) (no date) (unknown) (unknown) 05:10 05:10 09:25 (units unknown) (unknown) (unknown) (no date) (unknown) (unknown) 06:00 (units unknown) (unknown) (unknown) (no date) (unknown) (unknown) 06:35 08/02/22 (units unknown) (unknown) (unknown) (no date) (unknown) (unknown) 08:10 (units unknown) (unknown) (unknown) (no date) (unknown) (unknown) 08:15 08/02/22 06:01 (units unknown) (unknown) (unknown) (no date) (unknown) (unknown) 2 MCG/KG/HR (units unknown) (unknown) (unknown) (no date) (unknown) (unknown) 21:09 (units unknown) (unknown) (unknown) (no date) (unknown) (unknown) Administration (units unknown) (unknown) (unknown) (no date) (unknown) (unknown) Age/Sex: 31 / F (units unknown) (unknown) (unknown) (no date) (unknown) (unknown) Alcohol Withdrawal (units unknown) (unknown) (unknown) (no date) (unknown) (unknown) Anisocytosis 1+ H (units unknown) (unknown) (unknown) (no date) (unknown) (unknown) Anisocytosis (units unknown) (unknown) (unknown) (no date) (unknown) (unknown) Assessment + Plan narrative: (units unknown) (unknown) (unknown) (no date) (unknown) (unknown) Assessment + Plan (units unknown) (unknown) (unknown) (no date) (unknown) (unknown) Assessment and plan (units unknown) (unknown) (unknown) (no date) (unknown) (unknown) Ativan per CIWA protocol (units unknown) (unknown) (unknown) (no date) (unknown) (unknown) BID SANDY Administration (units unknown) (unknown) (unknown) (no date) (unknown) (unknown) BUN 5 L (units unknown) (unknown) (unknown) (no date) (unknown) (unknown) BUN (units unknown) (unknown) (unknown) (no date) (unknown) (unknown) BUN/Creatinine Ratio 9.3 (units unknown) (unknown) (unknown) (no date) (unknown) (unknown) BUN/Creatinine Ratio (units unknown) (unknown) (unknown) (no date) (unknown) (unknown) Baso # (Auto) 0 (units unknown) (unknown) (unknown) (no date) (unknown) (unknown) Baso # (Auto) (units unknown) (unknown) (unknown) (no date) (unknown) (unknown) Baso % (Auto) 0.8 (units unknown) (unknown) (unknown) (no date) (unknown) (unknown) Baso % (Auto) (units unknown) (unknown) (unknown) (no date) (unknown) (unknown) Blood Pressure 115/7 7 123/76 119/77 (units unknown) (unknown) (unknown) (no date) (unknown) (unknown) Blood Pressure 124/75 (units unknown) (unknown) (unknown) (no date) (unknown) (unknown) CIWAPRN PRN Administration (units unknown) (unknown) (unknown) (no date) (unknown) (unknown) CONT SANDY Administration (units unknown) (unknown) (unknown) (no date) (unknown) (unknown) Calcium 7.9 L (units unknown) (unknown) (unknown) (no date) (unknown) (unknown) Calcium (units unknown) (unknown) (unknown) (no date) (unknown) (unknown) Carbon Dioxide 24 (units unknown) (unknown) (unknown) (no date) (unknown) (unknown) Carbon Dioxide (units unknown) (unknown) (unknown) (no date) (unknown) (unknown) Chlordiazepoxide 25 Mg Capsule PO Not Given (units unknown) (unknown) (unknown) (no date) (unknown) (unknown) Chlordiazepoxide HCl 50 mg 08/01/22 12:00 08/02/22 06:01 (units unknown) (unknown) (unknown) (no date) (unknown) (unknown) Chloride 105 (units unknown) (unknown) (unknown) (no date) (unknown) (unknown) Chloride IV Not Given (units unknown) (unknown) (unknown) (no date) (unknown) (unknown) Chloride (units unknown) (unknown) (unknown) (no date) (unknown) (unknown) Confirmed 08/01/22] (units unknown) (unknown) (unknown) (no date) (unknown) (unknown) 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 Requires ICU for acute alcohol withdrawal (units unknown) (unknown) (unknown) (no date) (unknown) (unknown) Creatinine 0.54 (units unknown) (unknown) (unknown) (no date) (unknown) (unknown) Creatinine (units unknown) (unknown) (unknown) (no date) (unknown) (unknown) Current Medications (units unknown) (unknown) (unknown) (no date) (unknown) (unknown) DAILY SANDY Administration (units unknown) (unknown) (unknown) (no date) (unknown) (unknown) DAILY SANDY (units unknown) (unknown) (unknown) (no date) (unknown) (unknown) : 1990 Acct:[id number] (units unknown) (unknown) (unknown) (no date) (unknown) (unknown) Date Patient Seen: 08/02/22 (units unknown) (unknown) (unknown) (no date) (unknown) (unknown) Date of Service: 08/01/22 (units unknown) (unknown) (unknown) (no date) (unknown) (unknown) Dextrose 5%-Lactated Ringers IV 84 mls/hr (units unknown) (unknown) (unknown) (no date) (unknown) (unknown) Dextrose/Lactated Ringer's 1,000 mls @ 84 mls/hr 08/01/22 20:15 08/01/22 (units unknown) (unknown) (unknown) (no date) (unknown) (unknown) Dr. Sena, hospitalist (units unknown) (unknown) (unknown) (no date) (unknown) (unknown) Eos # (Auto) 100 (units unknown) (unknown) (unknown) (no date) (unknown) (unknown) Eos # (Auto) (units unknown) (unknown) (unknown) (no date) (unknown) (unknown) Eos % (Auto) 2.9 (units unknown) (unknown) (unknown) (no date) (unknown) (unknown) Eos % (Auto) (units unknown) (unknown) (unknown) (no date) (unknown) (unknown) Estimated GFR > 60 (units unknown) (unknown) (unknown) (no date) (unknown) (unknown) Estimated GFR (units unknown) (unknown) (unknown) (no date) (unknown) (unknown) Exam Narrative: (units unknown) (unknown) (unknown) (no date) (unknown) (unknown) Exam (units unknown) (unknown) (unknown) (no date) (unknown) (unknown) Fluoxetine 10 Mg Capsule PO Not Given (units unknown) (unknown) (unknown) (no date) (unknown) (unknown) Fluoxetine HCl 10 mg 08/01/22 09:00 08/02/22 08:11 (units unknown) (unknown) (unknown) (no date) (unknown) (unknown) Folate 11.9 (units unknown) (unknown) (unknown) (no date) (unknown) (unknown) Folate (units unknown) (unknown) (unknown) (no date) (unknown) (unknown) Folic Acid 1 Mg Tablet PO Not Given (units unknown) (unknown) (unknown) (no date) (unknown) (unknown) Folic Acid 1 mg 08/01/22 09:00 08/02/22 08:11 (units unknown) (unknown) (unknown) (no date) (unknown) (unknown) Free T4 1.13 (units unknown) (unknown) (unknown) (no date) (unknown) (unknown) Free T4 (units unknown) (unknown) (unknown) (no date) (unknown) (unknown) Generic Name Dose Route Start Last Admin (units unknown) (unknown) (unknown) (no date) (unknown) (unknown) Given severity of sx : continue current medications today (units unknown) (unknown) (unknown) (no date) (unknown) (unknown) Glucose 122 H (units unknown) (unknown) (unknown) (no date) (unknown) (unknown) Glucose (units unknown) (unknown) (unknown) (no date) (unknown) (unknown) Hct 28.6 L (units unknown) (unknown) (unknown) (no date) (unknown) (unknown) Hct (units unknown) (unknown) (unknown) (no date) (unknown) (unknown) Hgb 9.4 L (units unknown) (unknown) (unknown) (no date) (unknown) (unknown) Hgb (units unknown) (unknown) (unknown) (no date) (unknown) (unknown) Home Medications (units unknown) (unknown) (unknown) (no date) (unknown) (unknown) Hydroxyzine Pamoate 25 Mg Capsule PO Not Given (units unknown) (unknown) (unknown) (no date) (unknown) (unknown) Hydroxyzine Pamoate 50 mg 08/01/22 09:00 08/02/22 08:11 (units unknown) (unknown) (unknown) (no date) (unknown) (unknown) IF CAMERA ACTIVATED, patient seen via real-time interactive audiovisual (units unknown) (unknown) (unknown) (no date) (unknown) (unknown) Interval history: (units unknown) (unknown) (unknown) (no date) (unknown) (unknown) [address] [id number] (units unknown) (unknown) (unknown) (no date) (unknown) (unknown) Laboratory Results - last 24 hr (units unknown) (unknown) (unknown) (no date) (unknown) (unknown) Labs (units unknown) (unknown) (unknown) (no date) (unknown) (unknown) Labs: (units unknown) (unknown) (unknown) (no date) (unknown) (unknown) Lorazepam 0 mg 08/01/22 08:00 08/01/22 10:20 (units unknown) (unknown) (unknown) (no date) (unknown) (unknown) Lorazepam 2 Mg/Ml In j IV 2 mg (units unknown) (unknown) (unknown) (no date) (unknown) (unknown) Lymph # (Auto) 1200 (units unknown) (unknown) (unknown) (no date) (unknown) (unknown) Lymph # (Auto) (units unknown) (unknown) (unknown) (no date) (unknown) (unknown) Lymph % (Auto) 24.0 L (units unknown) (unknown) (unknown) (no date) (unknown) (unknown) Lymph % (Auto) (units unknown) (unknown) (unknown) (no date) (unknown) (unknown) MCH 26.6 (units unknown) (unknown) (unknown) (no date) (unknown) (unknown) MCH (units unknown) (unknown) (unknown) (no date) (unknown) (unknown) MCHC 32.8 (units unknown) (unknown) (unknown) (no date) (unknown) (unknown) MCHC (units unknown) (unknown) (unknown) (no date) (unknown) (unknown) MCV 81.1 (units unknown) (unknown) (unknown) (no date) (unknown) (unknown) MCV (units unknown) (unknown) (unknown) (no date) (unknown) (unknown) MVI, folate, thiamine (units unknown) (unknown) (unknown) (no date) (unknown) (unknown) Medications: (units unknown) (unknown) (unknown) (no date) (unknown) (unknown) [place] # (Auto) 200 (units unknown) (unknown) (unknown) (no date) (unknown) (unknown) [place] # (Auto) (units unknown) (unknown) (unknown) (no date) (unknown) (unknown) [place] % (Auto) 5.0 (units unknown) (unknown) (unknown) (no date) (unknown) (unknown) [place] % (Auto) (units unknown) (unknown) (unknown) (no date) (unknown) (unknown) Multivitamin 1 Table t PO Not Given (units unknown) (unknown) (unknown) (no date) (unknown) (unknown) Multivitamins 1 tab 08/01/22 09:00 08/02/22 08:11 (units unknown) (unknown) (unknown) (no date) (unknown) (unknown) Narrative (units unknown) (unknown) (unknown) (no date) (unknown) (unknown) Nasal Screen MRSA (PCR) Not detected (units unknown) (unknown) (unknown) (no date) (unknown) (unknown) Nasal Screen MRSA (PCR) (units unknown) (unknown) (unknown) (no date) (unknown) (unknown) Neut # (Auto) 3400 (units unknown) (unknown) (unknown) (no date) (unknown) (unknown) Neut # (Auto) (units unknown) (unknown) (unknown) (no date) (unknown) (unknown) Neut % (Auto) 67.3 (units unknown) (unknown) (unknown) (no date) (unknown) (unknown) Neut % (Auto) (units unknown) (unknown) (unknown) (no date) (unknown) (unknown) Objective (units unknown) (unknown) (unknown) (no date) (unknown) (unknown) 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: Bedside RN (units unknown) (unknown) (unknown) (no date) (unknown) (unknown) Other: (units unknown) (unknown) (unknown) (no date) (unknown) (unknown) Oxygen Delivery Method Room Air (units unknown) (unknown) (unknown) (no date) (unknown) (unknown) Oxygen Delivery Method (units unknown) (unknown) (unknown) (no date) (unknown) (unknown) Oxygen Flow Rate 0 (units unknown) (unknown) (unknown) (no date) (unknown) (unknown) PPx: SUP- PPI (units unknown) (unknown) (unknown) (no date) (unknown) (unknown) Pantoprazole 40 Mg Vial IV 40 mg (units unknown) (unknown) (unknown) (no date) (unknown) (unknown) Pantoprazole Sodium 40 mg 08/01/22 09:00 08/01/22 08:21 (units unknown) (unknown) (unknown) (no date) (unknown) (unknown) Patient Location: ICU (units unknown) (unknown) (unknown) (no date) (unknown) (unknown) Patient remains on precedex gtt, CIWA with benzos (units unknown) (unknown) (unknown) (no date) (unknown) (unknown) Patient: Sarah Connors MR#: M (units unknown) (unknown) (unknown) (no date) (unknown) (unknown) Phenobarbital 60 mg 08/01/22 09:00 08/01/22 21:26 (units unknown) (unknown) (unknown) (no date) (unknown) (unknown) Phenobarbital 65 Mg/Ml Vial IV 60 mg (units unknown) (unknown) (unknown) (no date) (unknown) (unknown) Plan for trial of weaning precedex tomorrow am (units unknown) (unknown) (unknown) (no date) (unknown) (unknown) Plan (units unknown) (unknown) (unknown) (no date) (unknown) (unknown) Plt Count 157 (units unknown) (unknown) (unknown) (no date) (unknown) (unknown) Plt Count (units unknown) (unknown) (unknown) (no date) (unknown) (unknown) Potassium 3.3 L (units unknown) (unknown) (unknown) (no date) (unknown) (unknown) Potassium (units unknown) (unknown) (unknown) (no date) (unknown) (unknown) Precedex IV 1 mcg/kg/hr (units unknown) (unknown) (unknown) (no date) (unknown) (unknown) Precedex gtt, scheduled phenobarb, librium (when safe for taking PO meds) (units unknown) (unknown) (unknown) (no date) (unknown) (unknown) Protocol (units unknown) (unknown) (unknown) (no date) (unknown) (unknown) Provider location (State): [place] (units unknown) (unknown) (unknown) (no date) (unknown) (unknown) Provider: Shameka Prince MD (units unknown) (unknown) (unknown) (no date) (unknown) (unknown) Pulse Oximetry 97 100 (units unknown) (unknown) (unknown) (no date) (unknown) (unknown) Pulse Oximetry 97 98 98 (units unknown) (unknown) (unknown) (no date) (unknown) (unknown) Pulse Rate 55 L 57 L 57 L (units unknown) (unknown) (unknown) (no date) (unknown) (unknown) Pulse Rate 58 L 59 L (units unknown) (unknown) (unknown) (no date) (unknown) (unknown) Pyridoxine 100 Mg/Ml Vial IV Not Given (units unknown) (unknown) (unknown) (no date) (unknown) (unknown) Pyridoxine HCl 100 m g 08/01/22 09:00 08/01/22 09:35 (units unknown) (unknown) (unknown) (no date) (unknown) (unknown) Q6HR SANDY (units unknown) (unknown) (unknown) (no date) (unknown) (unknown) RBC 3.53 L (units unknown) (unknown) (unknown) (no date) (unknown) (unknown) RBC Morphology See below (units unknown) (unknown) (unknown) (no date) (unknown) (unknown) RBC Morphology (units unknown) (unknown) (unknown) (no date) (unknown) (unknown) RBC (units unknown) (unknown) (unknown) (no date) (unknown) (unknown) RDW 20.1 H (units unknown) (unknown) (unknown) (no date) (unknown) (unknown) RDW (units unknown) (unknown) (unknown) (no date) (unknown) (unknown) Remains in ICU for acute alcohol withdrawal with DT's (units unknown) (unknown) (unknown) (no date) (unknown) (unknown) Resp (units unknown) (unknown) (unknown) (no date) (unknown) (unknown) Respiratory Rate 17 17 18 (units unknown) (unknown) (unknown) (no date) (unknown) (unknown) Respiratory Rate 18 17 (units unknown) (unknown) (unknown) (no date) (unknown) (unknown) She is asleep this am (units unknown) (unknown) (unknown) (no date) (unknown) (unknown) Signed By:<Electronically signed by Uyen Prince MD> (units unknown) (unknown) (unknown) (no date) (unknown) (unknown) Sleeping in bed, no distress (units unknown) (unknown) (unknown) (no date) (unknown) (unknown) Sodium 135 L (units unknown) (unknown) (unknown) (no date) (unknown) (unknown) Sodium (units unknown) (unknown) (unknown) (no date) (unknown) (unknown) Status: Acute (units unknown) (unknown) (unknown) (no date) (unknown) (unknown) Subjective (units unknown) (unknown) (unknown) (no date) (unknown) (unknown) TITRATE SANDY 13.494 mls/hr (units unknown) (unknown) (unknown) (no date) (unknown) (unknown) Teleintensivist Progress Note (units unknown) (unknown) (unknown) (no date) (unknown) (unknown) Temperature 98.7 F (units unknown) (unknown) (unknown) (no date) (unknown) (unknown) Temperature (units unknown) (unknown) (unknown) (no date) (unknown) (unknown) Thiamine HCl 100 mg/ Sodium 101 mls @ 404 mls/hr 08/01/22 09:00 08/01/22 (units unknown) (unknown) (unknown) (no date) (unknown) (unknown) Time Spent With Patient (units unknown) (unknown) (unknown) (no date) (unknown) (unknown) Time with patient: 3 0 to 49 minutes with 50% spent counseling/coordinati ng care (units unknown) (unknown) (unknown) (no date) (unknown) (unknown) Trade Name Edel PRN Reason Stop Dose Admin (units unknown) (unknown) (unknown) (no date) (unknown) (unknown) VTE, SCDs ordered, but cause extreme agitation (units unknown) (unknown) (unknown) (no date) (unknown) (unknown) Visit Medications (administered) (units unknown) (unknown) (unknown) (no date) (unknown) (unknown) Vital Signs (units unknown) (unknown) (unknown) (no date) (unknown) (unknown) Vitamin B12 401 (units unknown) (unknown) (unknown) (no date) (unknown) (unknown) Vitamin B12 (units unknown) (unknown) (unknown) (no date) (unknown) (unknown) WBC 5.0 D (units unknown) (unknown) (unknown) (no date) (unknown) (unknown) WBC (units unknown) (unknown) (unknown) (no date) (unknown) (unknown) Will need plan for rehab (units unknown) (unknown) (unknown) (no date) (unknown) (unknown) [Embedded Image Not Available] (units unknown) (unknown) (unknown) (no date) (unknown) (unknown) [Rx Confirmed 08/01/22] (units unknown) (unknown) (unknown) (no date) (unknown) (unknown) along with scheduled IV phenobarb, (units unknown) (unknown) (unknown) (no date) (unknown) (unknown) communication: [place] a activated (units unknown) (unknown) (unknown) (no date) (unknown) (unknown) dexmedeTOMIDine in 0.9 % NaCL 400 mcg in 100 mls @ 26.989 mls/hr 08/01/22 (units unknown) (unknown) (unknown) (no date) (unknown) (unknown) fluoxetine 10 mg capsule 10 mg PO DAILY 07/13/22 [History Confirmed 08/01/22] (units unknown) (unknown) (unknown) (no date) (unknown) (unknown) gentle hydration (units unknown) (unknown) (unknown) (no date) (unknown) (unknown) hydroxyzine HCl 50 m g tablet 50 mg PO DAILY 07/13/22 [History Confirmed (units unknown) (unknown) (unknown) (no date) (unknown) (unknown) librium, though not given currently as not safe for PO meds (units unknown) (unknown) (unknown) (no date) (unknown) (unknown) lovenox ordered instead for DVT ppx (units unknown) (unknown) (unknown) (no date) (unknown) (unknown) management (units unknown) (unknown) (unknown) (no date) (unknown) (unknown) multivitamin with folic acid 400 mcg tablet (Tab-A-Kael) 1 tab PO DAILY #30 tabs (units unknown) (unknown) (unknown) (no date) (unknown) (unknown) no apparent distress (units unknown) (unknown) (unknown) (no date) (unknown) (unknown) pantoprazole 40 mg tablet,delayed release 40 mg PO 0700 #30 tabs 07/14/22 [Rx (units unknown) (unknown) (unknown) (no date) (unknown) (unknown) quetiapine 300 mg tablet 300 mg PO DAILY 07/13/22 [History Confirmed 08/01/22] (units unknown) (unknown) (unknown) (no date) (unknown) (unknown) replace K (units unknown) (unknown) (unknown) (no date) (unknown) (unknown) restart fluoxetine when taking PO (units unknown) (unknown) (unknown) (no date) (unknown) (unknown) thiamine mononitrate (vit B1) 100 mg tablet 100 mg PO DAILY #30 tabs 07/14/22 (units unknown) (unknown) Result panel [id number] (unknown) (no date) (unknown) (unknown) (no value) (units unknown) (unknown) (unknown) (no date) (unknown) (unknown) # GERD (units unknown) (unknown) (unknown) (no date) (unknown) (unknown) # acute alcohol withdrawal with delirium tremens (units unknown) (unknown) (unknown) (no date) (unknown) (unknown) # depression and anxiety (units unknown) (unknown) (unknown) (no date) (unknown) (unknown) # normocytic anemia (units unknown) (unknown) (unknown) (no date) (unknown) (unknown) # toxic metabolic encephalopathy secondary to benzos, barbiturates, and alcohol (units unknown) (unknown) (unknown) (no date) (unknown) (unknown) (past 8 hours): (units unknown) (unknown) (unknown) (no date) (unknown) (unknown) -B12/folate normal (units unknown) (unknown) (unknown) (no date) (unknown) (unknown) -CIWA protocol with Ativan, phenobarbital 60 mg IV b.i.d., Librium 50 q.6 hours (units unknown) (unknown) (unknown) (no date) (unknown) (unknown) -MV, thiamine and B6 daily (units unknown) (unknown) (unknown) (no date) (unknown) (unknown) -appears to be chronic (units unknown) (unknown) (unknown) (no date) (unknown) (unknown) -appreciate tele-ICU consultation (units unknown) (unknown) (unknown) (no date) (unknown) (unknown) -continue PPI (units unknown) (unknown) (unknown) (no date) (unknown) (unknown) -continue Precedex drip until and benzos and barbiturates can take effect (units unknown) (unknown) (unknown) (no date) (unknown) (unknown) -continue home Proza c when able to take po (units unknown) (unknown) (unknown) (no date) (unknown) (unknown) -no evidence of bleeding (units unknown) (unknown) (unknown) (no date) (unknown) (unknown) -patient states last drink 5 days ago, but unclear if true given current (units unknown) (unknown) (unknown) (no date) (unknown) (unknown) -patient very agitated in ED and required precedex drip (units unknown) (unknown) (unknown) (no date) (unknown) (unknown) -should improve as withdrawals improve (units unknown) (unknown) (unknown) (no date) (unknown) (unknown) [id number] (units unknown) (unknown) (unknown) (no date) (unknown) (unknown) 00:00 08/02/22 (units unknown) (unknown) (unknown) (no date) (unknown) (unknown) 01:00 08/02/22 (units unknown) (unknown) (unknown) (no date) (unknown) (unknown) 01:00 (units unknown) (unknown) (unknown) (no date) (unknown) (unknown) 02:00 08/02/22 (units unknown) (unknown) (unknown) (no date) (unknown) (unknown) 08/01/22 08/01/22 08/01/22 (units unknown) (unknown) (unknown) (no date) (unknown) (unknown) 08/01/22 08/01/22 08/02/22 (units unknown) (unknown) (unknown) (no date) (unknown) (unknown) 08/02/22 03:48 (units unknown) (unknown) (unknown) (no date) (unknown) (unknown) 08/02/22 1134 (units unknown) (unknown) (unknown) (no date) (unknown) (unknown) 08/02/22 (units unknown) (unknown) (unknown) (no date) (unknown) (unknown) 03:00 08/02/22 (units unknown) (unknown) (unknown) (no date) (unknown) (unknown) 03:48 (units unknown) (unknown) (unknown) (no date) (unknown) (unknown) 04:00 (units unknown) (unknown) (unknown) (no date) (unknown) (unknown) 05:00 08/02/22 (units unknown) (unknown) (unknown) (no date) (unknown) (unknown) 05:10 05:10 05:10 (units unknown) (unknown) (unknown) (no date) (unknown) (unknown) 06:00 (units unknown) (unknown) (unknown) (no date) (unknown) (unknown) 06:35 08/02/22 (units unknown) (unknown) (unknown) (no date) (unknown) (unknown) 08:05 09:25 03:48 (units unknown) (unknown) (unknown) (no date) (unknown) (unknown) ABD: soft, nontender , nondistended, no organomegaly (units unknown) (unknown) (unknown) (no date) (unknown) (unknown) Age/Sex: 31 / F (units unknown) (unknown) (unknown) (no date) (unknown) (unknown) Alcohol withdrawal delirium, acute, hyperactive (units unknown) (unknown) (unknown) (no date) (unknown) (unknown) Alcoholism (units unknown) (unknown) (unknown) (no date) (unknown) (unknown) Anemia (-2018) (units unknown) (unknown) (unknown) (no date) (unknown) (unknown) Anisocytosis 1+ H (units unknown) (unknown) (unknown) (no date) (unknown) (unknown) Anisocytosis (units unknown) (unknown) (unknown) (no date) (unknown) (unknown) Assessment + Plan narrative: (units unknown) (unknown) (unknown) (no date) (unknown) (unknown) Assessment + Plan (units unknown) (unknown) (unknown) (no date) (unknown) (unknown) BUN 5 L (units unknown) (unknown) (unknown) (no date) (unknown) (unknown) BUN (units unknown) (unknown) (unknown) (no date) (unknown) (unknown) BUN/Creatinine Ratio 9.3 (units unknown) (unknown) (unknown) (no date) (unknown) (unknown) BUN/Creatinine Ratio (units unknown) (unknown) (unknown) (no date) (unknown) (unknown) Baso # (Auto) 0 (units unknown) (unknown) (unknown) (no date) (unknown) (unknown) Baso # (Auto) (units unknown) (unknown) (unknown) (no date) (unknown) (unknown) Baso % (Auto) 0.8 (units unknown) (unknown) (unknown) (no date) (unknown) (unknown) Baso % (Auto) (units unknown) (unknown) (unknown) (no date) (unknown) (unknown) Blood Pressure 115/7 7 123/76 119/77 (units unknown) (unknown) (unknown) (no date) (unknown) (unknown) Blood Pressure 118/7 4 112/81 (units unknown) (unknown) (unknown) (no date) (unknown) (unknown) Blood Pressure 124/75 (units unknown) (unknown) (unknown) (no date) (unknown) (unknown) COVID negative. (units unknown) (unknown) (unknown) (no date) (unknown) (unknown) CV: regular rate and rhythm, no murmurs (units unknown) (unknown) (unknown) (no date) (unknown) (unknown) Calcium 7.9 L (units unknown) (unknown) (unknown) (no date) (unknown) (unknown) Calcium (units unknown) (unknown) (unknown) (no date) (unknown) (unknown) Carbon Dioxide 24 (units unknown) (unknown) (unknown) (no date) (unknown) (unknown) Carbon Dioxide (units unknown) (unknown) (unknown) (no date) (unknown) (unknown) Chloride 105 (units unknown) (unknown) (unknown) (no date) (unknown) (unknown) Chloride (units unknown) (unknown) (unknown) (no date) (unknown) (unknown) Code status is full code. (units unknown) (unknown) (unknown) (no date) (unknown) (unknown) Creatinine 0.54 (units unknown) (unknown) (unknown) (no date) (unknown) (unknown) Creatinine (units unknown) (unknown) (unknown) (no date) (unknown) (unknown) : 1990 Acct:[id number] (units unknown) (unknown) (unknown) (no date) (unknown) (unknown) DVT prophylaxis with SCDs. (units unknown) (unknown) (unknown) (no date) (unknown) (unknown) Date of Service: 08/01/22 (units unknown) (unknown) (unknown) (no date) (unknown) (unknown) Dispo: ICU (units unknown) (unknown) (unknown) (no date) (unknown) (unknown) EXT: warm and well perfused with no edema (units unknown) (unknown) (unknown) (no date) (unknown) (unknown) Eos # (Auto) 100 (units unknown) (unknown) (unknown) (no date) (unknown) (unknown) Eos # (Auto) (units unknown) (unknown) (unknown) (no date) (unknown) (unknown) Eos % (Auto) 2.9 (units unknown) (unknown) (unknown) (no date) (unknown) (unknown) Eos % (Auto) (units unknown) (unknown) (unknown) (no date) (unknown) (unknown) Estimated GFR > 60 (units unknown) (unknown) (unknown) (no date) (unknown) (unknown) Estimated GFR (units unknown) (unknown) (unknown) (no date) (unknown) (unknown) Exam Narrative: (units unknown) (unknown) (unknown) (no date) (unknown) (unknown) Exam (units unknown) (unknown) (unknown) (no date) (unknown) (unknown) Family History (units unknown) (unknown) (unknown) (no date) (unknown) (unknown) Family/Other Alcoholism (units unknown) (unknown) (unknown) (no date) (unknown) (unknown) Family/Other Diabete s mellitus (units unknown) (unknown) (unknown) (no date) (unknown) (unknown) Father Alcoholism (units unknown) (unknown) (unknown) (no date) (unknown) (unknown) Folate 11.9 (units unknown) (unknown) (unknown) (no date) (unknown) (unknown) Folate (units unknown) (unknown) (unknown) (no date) (unknown) (unknown) Free T4 1.13 (units unknown) (unknown) (unknown) (no date) (unknown) (unknown) Free T4 (units unknown) (unknown) (unknown) (no date) (unknown) (unknown) GEN: no acute distress, sleeping (units unknown) (unknown) (unknown) (no date) (unknown) (unknown) Glucose 122 H (units unknown) (unknown) (unknown) (no date) (unknown) (unknown) Glucose (units unknown) (unknown) (unknown) (no date) (unknown) (unknown) Grandfather Smoker (units unknown) (unknown) (unknown) (no date) (unknown) (unknown) Grandfather Unknown whether patient has any health problems (units unknown) (unknown) (unknown) (no date) (unknown) (unknown) Grandmother Diabetes mellitus (units unknown) (unknown) (unknown) (no date) (unknown) (unknown) Grandmother Hypoglycemia (units unknown) (unknown) (unknown) (no date) (unknown) (unknown) H/O dilation and curettage (-12/14/16) (units unknown) (unknown) (unknown) (no date) (unknown) (unknown) H/O wisdom tooth extraction (-2013) (units unknown) (unknown) (unknown) (no date) (unknown) (unknown) HEENT: moist mucous membranes, PERRL (units unknown) (unknown) (unknown) (no date) (unknown) (unknown) Hct 28.6 L (units unknown) (unknown) (unknown) (no date) (unknown) (unknown) Hct (units unknown) (unknown) (unknown) (no date) (unknown) (unknown) Hgb 9.4 L (units unknown) (unknown) (unknown) (no date) (unknown) (unknown) Hgb (units unknown) (unknown) (unknown) (no date) (unknown) (unknown) I have reviewed home meds and used all available resources to reconcile the home (units unknown) (unknown) (unknown) (no date) (unknown) (unknown) I spent a total of 3 5 minutes of critical care time on this patient's care (units unknown) (unknown) (unknown) (no date) (unknown) (unknown) Insomnia (units unknown) (unknown) (unknown) (no date) (unknown) (unknown) Interval history: (units unknown) (unknown) (unknown) (no date) (unknown) (unknown) [address] [address] (units unknown) (unknown) (unknown) (no date) (unknown) (unknown) Laboratory Results - last 24 hr (units unknown) (unknown) (unknown) (no date) (unknown) (unknown) Labs (units unknown) (unknown) (unknown) (no date) (unknown) (unknown) Labs: (units unknown) (unknown) (unknown) (no date) (unknown) (unknown) Lymph # (Auto) 1200 (units unknown) (unknown) (unknown) (no date) (unknown) (unknown) Lymph # (Auto) (units unknown) (unknown) (unknown) (no date) (unknown) (unknown) Lymph % (Auto) 24.0 L (units unknown) (unknown) (unknown) (no date) (unknown) (unknown) Lymph % (Auto) (units unknown) (unknown) (unknown) (no date) (unknown) (unknown) MCH 26.6 (units unknown) (unknown) (unknown) (no date) (unknown) (unknown) MCH (units unknown) (unknown) (unknown) (no date) (unknown) (unknown) MCHC 32.8 (units unknown) (unknown) (unknown) (no date) (unknown) (unknown) MCHC (units unknown) (unknown) (unknown) (no date) (unknown) (unknown) MCV 81.1 (units unknown) (unknown) (unknown) (no date) (unknown) (unknown) MCV (units unknown) (unknown) (unknown) (no date) (unknown) (unknown) Magnesium 2.0 (units unknown) (unknown) (unknown) (no date) (unknown) (unknown) Magnesium (units unknown) (unknown) (unknown) (no date) (unknown) (unknown) Medical History (units unknown) (unknown) (unknown) (no date) (unknown) (unknown) Menometrorrhagia (units unknown) (unknown) (unknown) (no date) (unknown) (unknown) [place] # (Auto) 200 (units unknown) (unknown) (unknown) (no date) (unknown) (unknown) [place] # (Auto) (units unknown) (unknown) (unknown) (no date) (unknown) (unknown) [place] % (Auto) 5.0 (units unknown) (unknown) (unknown) (no date) (unknown) (unknown) [place] % (Auto) (units unknown) (unknown) (unknown) (no date) (unknown) (unknown) Mother Diabetes mellitus (units unknown) (unknown) (unknown) (no date) (unknown) (unknown) NECK: trachea midline, no JVD (units unknown) (unknown) (unknown) (no date) (unknown) (unknown) NEURO: no focal deficits (units unknown) (unknown) (unknown) (no date) (unknown) (unknown) Narrative (units unknown) (unknown) (unknown) (no date) (unknown) (unknown) Nasal Screen MRSA (PCR) Not detected (units unknown) (unknown) (unknown) (no date) (unknown) (unknown) Nasal Screen MRSA (PCR) (units unknown) (unknown) (unknown) (no date) (unknown) (unknown) Neut # (Auto) 3400 (units unknown) (unknown) (unknown) (no date) (unknown) (unknown) Neut # (Auto) (units unknown) (unknown) (unknown) (no date) (unknown) (unknown) Neut % (Auto) 67.3 (units unknown) (unknown) (unknown) (no date) (unknown) (unknown) Neut % (Auto) (units unknown) (unknown) (unknown) (no date) (unknown) (unknown) Obesity (units unknown) (unknown) (unknown) (no date) (unknown) (unknown) Objective (units unknown) (unknown) (unknown) (no date) (unknown) (unknown) Overweight (units unknown) (unknown) (unknown) (no date) (unknown) (unknown) Oxygen Delivery Method Room Air (units unknown) (unknown) (unknown) (no date) (unknown) (unknown) Oxygen Delivery Method (units unknown) (unknown) (unknown) (no date) (unknown) (unknown) Oxygen Flow Rate 0 (units unknown) (unknown) (unknown) (no date) (unknown) (unknown) PFSH (units unknown) (unknown) (unknown) (no date) (unknown) (unknown) PULM: clear bilaterally (units unknown) (unknown) (unknown) (no date) (unknown) (unknown) Patient remains on precedex drip. Sleeping currently. (units unknown) (unknown) (unknown) (no date) (unknown) (unknown) Patient: Sarah Connors MR#: M (units unknown) (unknown) (unknown) (no date) (unknown) (unknown) Plt Count 157 (units unknown) (unknown) (unknown) (no date) (unknown) (unknown) Plt Count (units unknown) (unknown) (unknown) (no date) (unknown) (unknown) Potassium 3.3 L (units unknown) (unknown) (unknown) (no date) (unknown) (unknown) Potassium (units unknown) (unknown) (unknown) (no date) (unknown) (unknown) Progress Note (units unknown) (unknown) (unknown) (no date) (unknown) (unknown) Provider: Jabari Sena D.O. (units unknown) (unknown) (unknown) (no date) (unknown) (unknown) Proxy is humera Richter. (units unknown) (unknown) (unknown) (no date) (unknown) (unknown) Pulse Oximetry 97 100 (units unknown) (unknown) (unknown) (no date) (unknown) (unknown) Pulse Oximetry 97 98 98 (units unknown) (unknown) (unknown) (no date) (unknown) (unknown) Pulse Oximetry 98 98 (units unknown) (unknown) (unknown) (no date) (unknown) (unknown) Pulse Rate 49 L 52 L (units unknown) (unknown) (unknown) (no date) (unknown) (unknown) Pulse Rate 55 L 57 L 57 L (units unknown) (unknown) (unknown) (no date) (unknown) (unknown) Pulse Rate 58 L 59 L (units unknown) (unknown) (unknown) (no date) (unknown) (unknown) RBC 3.53 L (units unknown) (unknown) (unknown) (no date) (unknown) (unknown) RBC Morphology See below (units unknown) (unknown) (unknown) (no date) (unknown) (unknown) RBC Morphology (units unknown) (unknown) (unknown) (no date) (unknown) (unknown) RBC (units unknown) (unknown) (unknown) (no date) (unknown) (unknown) RDW 20.1 H (units unknown) (unknown) (unknown) (no date) (unknown) (unknown) RDW (units unknown) (unknown) (unknown) (no date) (unknown) (unknown) Respiratory Rate 17 17 18 (units unknown) (unknown) (unknown) (no date) (unknown) (unknown) Respiratory Rate 18 13 (units unknown) (unknown) (unknown) (no date) (unknown) (unknown) Respiratory Rate 18 17 (units unknown) (unknown) (unknown) (no date) (unknown) (unknown) S/P myringotomy with insertion of tube (units unknown) (unknown) (unknown) (no date) (unknown) (unknown) SARS-CoV-2 (PCR) Negative (units unknown) (unknown) (unknown) (no date) (unknown) (unknown) SARS-CoV-2 (PCR) (units unknown) (unknown) (unknown) (no date) (unknown) (unknown) (spontaneous vaginal delivery) (-09/05/18) (units unknown) (unknown) (unknown) (no date) (unknown) (unknown) Signed By:<Electronically signed by Jabari Sena D.O.> (units unknown) (unknown) (unknown) (no date) (unknown) (unknown) Smoker (units unknown) (unknown) (unknown) (no date) (unknown) (unknown) Smoking Status: Former smoker (units unknown) (unknown) (unknown) (no date) (unknown) (unknown) Social History (units unknown) (unknown) (unknown) (no date) (unknown) (unknown) Sodium 135 L (units unknown) (unknown) (unknown) (no date) (unknown) (unknown) Sodium (units unknown) (unknown) (unknown) (no date) (unknown) (unknown) Subjective (units unknown) (unknown) (unknown) (no date) (unknown) (unknown) Surgical History (units unknown) (unknown) (unknown) (no date) (unknown) (unknown) TCA's. EtOH negative. (units unknown) (unknown) (unknown) (no date) (unknown) (unknown) TSH 4.71 H (units unknown) (unknown) (unknown) (no date) (unknown) (unknown) TSH (units unknown) (unknown) (unknown) (no date) (unknown) (unknown) Temperature 98.5 F (units unknown) (unknown) (unknown) (no date) (unknown) (unknown) Temperature 98.7 F (units unknown) (unknown) (unknown) (no date) (unknown) (unknown) Temperature (units unknown) (unknown) (unknown) (no date) (unknown) (unknown) Vital Signs (units unknown) (unknown) (unknown) (no date) (unknown) (unknown) Vitamin B12 401 (units unknown) (unknown) (unknown) (no date) (unknown) (unknown) Vitamin B12 (units unknown) (unknown) (unknown) (no date) (unknown) (unknown) WBC 5.0 D (units unknown) (unknown) (unknown) (no date) (unknown) (unknown) WBC (units unknown) (unknown) (unknown) (no date) (unknown) (unknown) [Embedded Image Not Available] (units unknown) (unknown) (unknown) (no date) (unknown) (unknown) alcohol intake: current (units unknown) (unknown) (unknown) (no date) (unknown) (unknown) current occupational exposures/hazards: Yes (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 with Pandemic ) (units unknown) (unknown) (unknown) (no date) (unknown) (unknown) education level: college 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 (units unknown) (unknown) (unknown) (no date) (unknown) (unknown) number of children: 1 (units unknown) (unknown) (unknown) (no date) (unknown) (unknown) occupational status: employed (units unknown) (unknown) (unknown) (no date) (unknown) (unknown) second hand exposure : No (growing up as a child - not currently) (units unknown) (unknown) (unknown) (no date) (unknown) (unknown) special renee needs: No (units unknown) (unknown) (unknown) (no date) (unknown) (unknown) substance use type: does not use (units unknown) (unknown) (unknown) (no date) (unknown) (unknown) today; this time is exclusive of procedural time. (units unknown) (unknown) (unknown) (no date) (unknown) (unknown) when able to take oral meds (units unknown) (unknown) (unknown) (no date) (unknown) (unknown) withdrawal (units unknown) (unknown) (unknown) (no date) (unknown) (unknown) withdrawals symptoms would like be out of window. UDS positive benzos, barbs and (units unknown) (unknown) Result panel 2257 (unknown) (no date) (unknown) (unknown) (no value) (units unknown) (unknown) (unknown) (no date) (unknown) (unknown) # GERD (units unknown) (unknown) (unknown) (no date) (unknown) (unknown) # acute alcohol withdrawal with delirium tremens (units unknown) (unknown) (unknown) (no date) (unknown) (unknown) # depression and anxiety (units unknown) (unknown) (unknown) (no date) (unknown) (unknown) # normocytic anemia (units unknown) (unknown) (unknown) (no date) (unknown) (unknown) # toxic metabolic encephalopathy secondary to benzos, barbiturates, and alcohol (units unknown) (unknown) (unknown) (no date) (unknown) (unknown) (past 8 hours): (units unknown) (unknown) (unknown) (no date) (unknown) (unknown) ADDENDUM (units unknown) (unknown) (unknown) (no date) (unknown) (unknown) -B12/folate normal (units unknown) (unknown) (unknown) (no date) (unknown) (unknown) -CIWA protocol with Ativan, phenobarbital 60 mg IV b.i.d., Librium 50 q.6 hours (units unknown) (unknown) (unknown) (no date) (unknown) (unknown) -MV, thiamine and B6 daily (units unknown) (unknown) (unknown) (no date) (unknown) (unknown) -appears to be chronic (units unknown) (unknown) (unknown) (no date) (unknown) (unknown) -appreciate tele-ICU consultation (units unknown) (unknown) (unknown) (no date) (unknown) (unknown) -continue PPI (units unknown) (unknown) (unknown) (no date) (unknown) (unknown) -continue Precedex drip until and benzos and barbiturates can take effect (units unknown) (unknown) (unknown) (no date) (unknown) (unknown) -continue home Proza c when able to take po (units unknown) (unknown) (unknown) (no date) (unknown) (unknown) -no evidence of bleeding (units unknown) (unknown) (unknown) (no date) (unknown) (unknown) -patient states last drink 5 days ago, but unclear if true given current (units unknown) (unknown) (unknown) (no date) (unknown) (unknown) -patient very agitated in ED and required precedex drip (units unknown) (unknown) (unknown) (no date) (unknown) (unknown) -should improve as withdrawals improve (units unknown) (unknown) (unknown) (no date) (unknown) (unknown) [id number] (units unknown) (unknown) (unknown) (no date) (unknown) (unknown) 00:00 08/02/22 (units unknown) (unknown) (unknown) (no date) (unknown) (unknown) 01:00 08/02/22 (units unknown) (unknown) (unknown) (no date) (unknown) (unknown) 01:00 (units unknown) (unknown) (unknown) (no date) (unknown) (unknown) 02:00 08/02/22 (units unknown) (unknown) (unknown) (no date) (unknown) (unknown) 08/01/22 08/01/22 08/01/22 (units unknown) (unknown) (unknown) (no date) (unknown) (unknown) 08/01/22 08/01/22 08/02/22 (units unknown) (unknown) (unknown) (no date) (unknown) (unknown) 08/02/22 03:48 (units unknown) (unknown) (unknown) (no date) (unknown) (unknown) 08/02/22 1134 (units unknown) (unknown) (unknown) (no date) (unknown) (unknown) 08/02/22 1207 (units unknown) (unknown) (unknown) (no date) (unknown) (unknown) 08/02/22 (units unknown) (unknown) (unknown) (no date) (unknown) (unknown) 03:00 08/02/22 (units unknown) (unknown) (unknown) (no date) (unknown) (unknown) 03:48 (units unknown) (unknown) (unknown) (no date) (unknown) (unknown) 04:00 (units unknown) (unknown) (unknown) (no date) (unknown) (unknown) 05:00 08/02/22 (units unknown) (unknown) (unknown) (no date) (unknown) (unknown) 05:10 05:10 05:10 (units unknown) (unknown) (unknown) (no date) (unknown) (unknown) 06:00 (units unknown) (unknown) (unknown) (no date) (unknown) (unknown) 06:35 08/02/22 (units unknown) (unknown) (unknown) (no date) (unknown) (unknown) 08:05 09:25 03:48 (units unknown) (unknown) (unknown) (no date) (unknown) (unknown) ABD: soft, nontender , nondistended, no organomegaly (units unknown) (unknown) (unknown) (no date) (unknown) (unknown) Acute on chronic moderate protein calorie malnutrition r/t excessive ETOH aeb (units unknown) (unknown) (unknown) (no date) (unknown) (unknown) Addendum Documented By: Cayden HernandezOForest (units unknown) (unknown) (unknown) (no date) (unknown) (unknown) Addendum Signed By: <Electronically signed by Jabari Sena, (units unknown) (unknown) (unknown) (no date) (unknown) (unknown) Age/Sex: 31 / F (units unknown) (unknown) (unknown) (no date) (unknown) (unknown) Alcohol withdrawal delirium, acute, hyperactive (units unknown) (unknown) (unknown) (no date) (unknown) (unknown) Alcoholism (units unknown) (unknown) (unknown) (no date) (unknown) (unknown) Anemia (-2018) (units unknown) (unknown) (unknown) (no date) (unknown) (unknown) Anisocytosis 1+ H (units unknown) (unknown) (unknown) (no date) (unknown) (unknown) Anisocytosis (units unknown) (unknown) (unknown) (no date) (unknown) (unknown) Assessment + Plan narrative: (units unknown) (unknown) (unknown) (no date) (unknown) (unknown) Assessment + Plan (units unknown) (unknown) (unknown) (no date) (unknown) (unknown) BUN 5 L (units unknown) (unknown) (unknown) (no date) (unknown) (unknown) BUN (units unknown) (unknown) (unknown) (no date) (unknown) (unknown) BUN/Creatinine Ratio 9.3 (units unknown) (unknown) (unknown) (no date) (unknown) (unknown) BUN/Creatinine Ratio (units unknown) (unknown) (unknown) (no date) (unknown) (unknown) Baso # (Auto) 0 (units unknown) (unknown) (unknown) (no date) (unknown) (unknown) Baso # (Auto) (units unknown) (unknown) (unknown) (no date) (unknown) (unknown) Baso % (Auto) 0.8 (units unknown) (unknown) (unknown) (no date) (unknown) (unknown) Baso % (Auto) (units unknown) (unknown) (unknown) (no date) (unknown) (unknown) Blood Pressure 115/7 7 123/76 119/77 (units unknown) (unknown) (unknown) (no date) (unknown) (unknown) Blood Pressure 118/7 4 112/81 (units unknown) (unknown) (unknown) (no date) (unknown) (unknown) Blood Pressure 124/75 (units unknown) (unknown) (unknown) (no date) (unknown) (unknown) COVID negative. (units unknown) (unknown) (unknown) (no date) (unknown) (unknown) CV: regular rate and rhythm, no murmurs (units unknown) (unknown) (unknown) (no date) (unknown) (unknown) Calcium 7.9 L (units unknown) (unknown) (unknown) (no date) (unknown) (unknown) Calcium (units unknown) (unknown) (unknown) (no date) (unknown) (unknown) Carbon Dioxide 24 (units unknown) (unknown) (unknown) (no date) (unknown) (unknown) Carbon Dioxide (units unknown) (unknown) (unknown) (no date) (unknown) (unknown) Chloride 105 (units unknown) (unknown) (unknown) (no date) (unknown) (unknown) Chloride (units unknown) (unknown) (unknown) (no date) (unknown) (unknown) Code status is full code. (units unknown) (unknown) (unknown) (no date) (unknown) (unknown) Creatinine 0.54 (units unknown) (unknown) (unknown) (no date) (unknown) (unknown) Creatinine (units unknown) (unknown) (unknown) (no date) (unknown) (unknown) D.O.> 08/02/22 1207 (units unknown) (unknown) (unknown) (no date) (unknown) (unknown) : 1990 Acct:[id number] (units unknown) (unknown) (unknown) (no date) (unknown) (unknown) DVT prophylaxis with SCDs. (units unknown) (unknown) (unknown) (no date) (unknown) (unknown) Date of Service: 08/01/22 (units unknown) (unknown) (unknown) (no date) (unknown) (unknown) Dispo: ICU (units unknown) (unknown) (unknown) (no date) (unknown) (unknown) EXT: warm and well perfused with no edema (units unknown) (unknown) (unknown) (no date) (unknown) (unknown) Eos # (Auto) 100 (units unknown) (unknown) (unknown) (no date) (unknown) (unknown) Eos # (Auto) (units unknown) (unknown) (unknown) (no date) (unknown) (unknown) Eos % (Auto) 2.9 (units unknown) (unknown) (unknown) (no date) (unknown) (unknown) Eos % (Auto) (units unknown) (unknown) (unknown) (no date) (unknown) (unknown) Estimated GFR > 60 (units unknown) (unknown) (unknown) (no date) (unknown) (unknown) Estimated GFR (units unknown) (unknown) (unknown) (no date) (unknown) (unknown) Exam Narrative: (units unknown) (unknown) (unknown) (no date) (unknown) (unknown) Exam (units unknown) (unknown) (unknown) (no date) (unknown) (unknown) Family History (units unknown) (unknown) (unknown) (no date) (unknown) (unknown) Family/Other Alcoholism (units unknown) (unknown) (unknown) (no date) (unknown) (unknown) Family/Other Diabete s mellitus (units unknown) (unknown) (unknown) (no date) (unknown) (unknown) Father Alcoholism (units unknown) (unknown) (unknown) (no date) (unknown) (unknown) Folate 11.9 (units unknown) (unknown) (unknown) (no date) (unknown) (unknown) Folate (units unknown) (unknown) (unknown) (no date) (unknown) (unknown) Free T4 1.13 (units unknown) (unknown) (unknown) (no date) (unknown) (unknown) Free T4 (units unknown) (unknown) (unknown) (no date) (unknown) (unknown) GEN: no acute distress, sleeping (units unknown) (unknown) (unknown) (no date) (unknown) (unknown) Glucose 122 H (units unknown) (unknown) (unknown) (no date) (unknown) (unknown) Glucose (units unknown) (unknown) (unknown) (no date) (unknown) (unknown) Grandfather Smoker (units unknown) (unknown) (unknown) (no date) (unknown) (unknown) Grandfather Unknown whether patient has any health problems (units unknown) (unknown) (unknown) (no date) (unknown) (unknown) Grandmother Diabetes mellitus (units unknown) (unknown) (unknown) (no date) (unknown) (unknown) Grandmother Hypoglycemia (units unknown) (unknown) (unknown) (no date) (unknown) (unknown) H/O dilation and curettage (-12/14/16) (units unknown) (unknown) (unknown) (no date) (unknown) (unknown) H/O wisdom tooth extraction () (units unknown) (unknown) (unknown) (no date) (unknown) (unknown) HEENT: moist mucous membranes, PERRL (units unknown) (unknown) (unknown) (no date) (unknown) (unknown) Hct 28.6 L (units unknown) (unknown) (unknown) (no date) (unknown) (unknown) Hct (units unknown) (unknown) (unknown) (no date) (unknown) (unknown) Hgb 9.4 L (units unknown) (unknown) (unknown) (no date) (unknown) (unknown) Hgb (units unknown) (unknown) (unknown) (no date) (unknown) (unknown) I have reviewed home meds and used all available resources to reconcile the home (units unknown) (unknown) (unknown) (no date) (unknown) (unknown) I spent a total of 3 5 minutes of critical care time on this patient's care (units unknown) (unknown) (unknown) (no date) (unknown) (unknown) Insomnia (units unknown) (unknown) (unknown) (no date) (unknown) (unknown) Interval history: (units unknown) (unknown) (unknown) (no date) (unknown) (unknown) [address] [address] (units unknown) (unknown) (unknown) (no date) (unknown) (unknown) Laboratory Results - last 24 hr (units unknown) (unknown) (unknown) (no date) (unknown) (unknown) Labs (units unknown) (unknown) (unknown) (no date) (unknown) (unknown) Labs: (units unknown) (unknown) (unknown) (no date) (unknown) (unknown) Lymph # (Auto) 1200 (units unknown) (unknown) (unknown) (no date) (unknown) (unknown) Lymph # (Auto) (units unknown) (unknown) (unknown) (no date) (unknown) (unknown) Lymph % (Auto) 24.0 L (units unknown) (unknown) (unknown) (no date) (unknown) (unknown) Lymph % (Auto) (units unknown) (unknown) (unknown) (no date) (unknown) (unknown) MCH 26.6 (units unknown) (unknown) (unknown) (no date) (unknown) (unknown) MCH (units unknown) (unknown) (unknown) (no date) (unknown) (unknown) MCHC 32.8 (units unknown) (unknown) (unknown) (no date) (unknown) (unknown) MCHC (units unknown) (unknown) (unknown) (no date) (unknown) (unknown) MCV 81.1 (units unknown) (unknown) (unknown) (no date) (unknown) (unknown) MCV (units unknown) (unknown) (unknown) (no date) (unknown) (unknown) Magnesium 2.0 (units unknown) (unknown) (unknown) (no date) (unknown) (unknown) Magnesium (units unknown) (unknown) (unknown) (no date) (unknown) (unknown) Medical History (units unknown) (unknown) (unknown) (no date) (unknown) (unknown) Menometrorrhagia (units unknown) (unknown) (unknown) (no date) (unknown) (unknown) [place] # (Auto) 200 (units unknown) (unknown) (unknown) (no date) (unknown) (unknown) [place] # (Auto) (units unknown) (unknown) (unknown) (no date) (unknown) (unknown) [place] % (Auto) 5.0 (units unknown) (unknown) (unknown) (no date) (unknown) (unknown) [place] % (Auto) (units unknown) (unknown) (unknown) (no date) (unknown) (unknown) Mother Diabetes mellitus (units unknown) (unknown) (unknown) (no date) (unknown) (unknown) NECK: trachea midline, no JVD (units unknown) (unknown) (unknown) (no date) (unknown) (unknown) NEURO: no focal deficits (units unknown) (unknown) (unknown) (no date) (unknown) (unknown) Narrative (units unknown) (unknown) (unknown) (no date) (unknown) (unknown) Nasal Screen MRSA (PCR) Not detected (units unknown) (unknown) (unknown) (no date) (unknown) (unknown) Nasal Screen MRSA (PCR) (units unknown) (unknown) (unknown) (no date) (unknown) (unknown) Neut # (Auto) 3400 (units unknown) (unknown) (unknown) (no date) (unknown) (unknown) Neut # (Auto) (units unknown) (unknown) (unknown) (no date) (unknown) (unknown) Neut % (Auto) 67.3 (units unknown) (unknown) (unknown) (no date) (unknown) (unknown) Neut % (Auto) (units unknown) (unknown) (unknown) (no date) (unknown) (unknown) Obesity (units unknown) (unknown) (unknown) (no date) (unknown) (unknown) Objective (units unknown) (unknown) (unknown) (no date) (unknown) (unknown) Overweight (units unknown) (unknown) (unknown) (no date) (unknown) (unknown) Oxygen Delivery Method Room Air (units unknown) (unknown) (unknown) (no date) (unknown) (unknown) Oxygen Delivery Method (units unknown) (unknown) (unknown) (no date) (unknown) (unknown) Oxygen Flow Rate 0 (units unknown) (unknown) (unknown) (no date) (unknown) (unknown) PFSH (units unknown) (unknown) (unknown) (no date) (unknown) (unknown) PULM: clear bilaterally (units unknown) (unknown) (unknown) (no date) (unknown) (unknown) Patient remains on precedex drip. Sleeping currently. (units unknown) (unknown) (unknown) (no date) (unknown) (unknown) Patient: Sarah Connors MR#: M (units unknown) (unknown) (unknown) (no date) (unknown) (unknown) Plt Count 157 (units unknown) (unknown) (unknown) (no date) (unknown) (unknown) Plt Count (units unknown) (unknown) (unknown) (no date) (unknown) (unknown) Potassium 3.3 L (units unknown) (unknown) (unknown) (no date) (unknown) (unknown) Potassium (units unknown) (unknown) (unknown) (no date) (unknown) (unknown) Progress Note (units unknown) (unknown) (unknown) (no date) (unknown) (unknown) Provider: Jabari Sena D.O. (units unknown) (unknown) (unknown) (no date) (unknown) (unknown) Proxy is spouse Rober. (units unknown) (unknown) (unknown) (no date) (unknown) (unknown) Pulse Oximetry 97 100 (units unknown) (unknown) (unknown) (no date) (unknown) (unknown) Pulse Oximetry 97 98 98 (units unknown) (unknown) (unknown) (no date) (unknown) (unknown) Pulse Oximetry 98 98 (units unknown) (unknown) (unknown) (no date) (unknown) (unknown) Pulse Rate 49 L 52 L (units unknown) (unknown) (unknown) (no date) (unknown) (unknown) Pulse Rate 55 L 57 L 57 L (units unknown) (unknown) (unknown) (no date) (unknown) (unknown) Pulse Rate 58 L 59 L (units unknown) (unknown) (unknown) (no date) (unknown) (unknown) RBC 3.53 L (units unknown) (unknown) (unknown) (no date) (unknown) (unknown) RBC Morphology See below (units unknown) (unknown) (unknown) (no date) (unknown) (unknown) RBC Morphology (units unknown) (unknown) (unknown) (no date) (unknown) (unknown) RBC (units unknown) (unknown) (unknown) (no date) (unknown) (unknown) RDW 20.1 H (units unknown) (unknown) (unknown) (no date) (unknown) (unknown) RDW (units unknown) (unknown) (unknown) (no date) (unknown) (unknown) Respiratory Rate 17 17 18 (units unknown) (unknown) (unknown) (no date) (unknown) (unknown) Respiratory Rate 18 13 (units unknown) (unknown) (unknown) (no date) (unknown) (unknown) Respiratory Rate 18 17 (units unknown) (unknown) (unknown) (no date) (unknown) (unknown) S/P myringotomy with insertion of tube (units unknown) (unknown) (unknown) (no date) (unknown) (unknown) SARS-CoV-2 (PCR) Negative (units unknown) (unknown) (unknown) (no date) (unknown) (unknown) SARS-CoV-2 (PCR) (units unknown) (unknown) (unknown) (no date) (unknown) (unknown) (spontaneous vaginal delivery) (-09/05/18) (units unknown) (unknown) (unknown) (no date) (unknown) (unknown) Signed By:<Electronically signed by Jabari Sena D.O.> (units unknown) (unknown) (unknown) (no date) (unknown) (unknown) Smoker (units unknown) (unknown) (unknown) (no date) (unknown) (unknown) Smoking Status: Former smoker (units unknown) (unknown) (unknown) (no date) (unknown) (unknown) Social History (units unknown) (unknown) (unknown) (no date) (unknown) (unknown) Sodium 135 L (units unknown) (unknown) (unknown) (no date) (unknown) (unknown) Sodium (units unknown) (unknown) (unknown) (no date) (unknown) (unknown) Subjective (units unknown) (unknown) (unknown) (no date) (unknown) (unknown) Surgical History (units unknown) (unknown) (unknown) (no date) (unknown) (unknown) TCA's. EtOH negative. (units unknown) (unknown) (unknown) (no date) (unknown) (unknown) TSH 4.71 H (units unknown) (unknown) (unknown) (no date) (unknown) (unknown) TSH (units unknown) (unknown) (unknown) (no date) (unknown) (unknown) Temperature 98.5 F (units unknown) (unknown) (unknown) (no date) (unknown) (unknown) Temperature 98.7 F (units unknown) (unknown) (unknown) (no date) (unknown) (unknown) Temperature (units unknown) (unknown) (unknown) (no date) (unknown) (unknown) The patient is at much higher risk for medical and surgical complications (units unknown) (unknown) (unknown) (no date) (unknown) (unknown) Vital Signs (units unknown) (unknown) (unknown) (no date) (unknown) (unknown) Vitamin B12 401 (units unknown) (unknown) (unknown) (no date) (unknown) (unknown) Vitamin B12 (units unknown) (unknown) (unknown) (no date) (unknown) (unknown) WBC 5.0 D (units unknown) (unknown) (unknown) (no date) (unknown) (unknown) WBC (units unknown) (unknown) (unknown) (no date) (unknown) (unknown) [Embedded Image Not Available] (units unknown) (unknown) (unknown) (no date) (unknown) (unknown) admitted for substance withdrawal with hallucinations. (units unknown) (unknown) (unknown) (no date) (unknown) (unknown) alcohol intake: current (units unknown) (unknown) (unknown) (no date) (unknown) (unknown) because of his malnutrition. 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 (units unknown) (unknown) (unknown) (no date) (unknown) (unknown) number of children: 1 (units unknown) (unknown) (unknown) (no date) (unknown) (unknown) occupational status: employed (units unknown) (unknown) (unknown) (no date) (unknown) (unknown) past/present alcohol abuse of 750 cc vodka/day, 20% wt loss in 1 yr, and (units unknown) (unknown) (unknown) (no date) (unknown) (unknown) second hand exposure : No (growing up as a child - not currently) (units unknown) (unknown) (unknown) (no date) (unknown) (unknown) special renee needs: No (units unknown) (unknown) (unknown) (no date) (unknown) (unknown) substance use type: does not use (units unknown) (unknown) (unknown) (no date) (unknown) (unknown) such as morbidity an d mortality. (units unknown) (unknown) (unknown) (no date) (unknown) (unknown) today; this time is exclusive of procedural time. (units unknown) (unknown) (unknown) (no date) (unknown) (unknown) when able to take oral meds (units unknown) (unknown) (unknown) (no date) (unknown) (unknown) withdrawal (units unknown) (unknown) (unknown) (no date) (unknown) (unknown) withdrawals symptoms would like be out of window. UDS positive benzos, barbs and (units unknown) (unknown) Result panel 2258 (unknown) (no date) (unknown) (unknown) (no value) (units unknown) (unknown) (unknown) (no date) (unknown) (unknown) [id number] (units unknown) (unknown) (unknown) (no date) (unknown) (unknown) 08/02/222009 (units unknown) (unknown) (unknown) (no date) (unknown) (unknown) :: (units unknown) (unknown) (unknown) (no date) (unknown) (unknown) Age/Sex: 31 / F (units unknown) (unknown) (unknown) (no date) (unknown) (unknown) D/w bedside RN. (units unknown) (unknown) (unknown) (no date) (unknown) (unknown) : 1990 Acct:[id number] (units unknown) (unknown) (unknown) (no date) (unknown) (unknown) Date Patient Seen: 08/02/22 (units unknown) (unknown) (unknown) (no date) (unknown) (unknown) Date of Service: 08/01/22 (units unknown) (unknown) (unknown) (no date) (unknown) (unknown) ICU Multidisciplinar y Rounds (units unknown) (unknown) (unknown) (no date) (unknown) (unknown) [address] [address] (units unknown) (unknown) (unknown) (no date) (unknown) (unknown) Note: (units unknown) (unknown) (unknown) (no date) (unknown) (unknown) On precedex 1 mcg/kg/hr, scheduled phenobarb, and librium. Patient is (units unknown) (unknown) (unknown) (no date) (unknown) (unknown) Patient: Sarah Connors MR#: M (units unknown) (unknown) (unknown) (no date) (unknown) (unknown) Provider: Paulo Dixon MD (units unknown) (unknown) (unknown) (no date) (unknown) (unknown) Signed By:<Electronically signed by Paulo Dixon MD> (units unknown) (unknown) (unknown) (no date) (unknown) (unknown) This patient was see n via real time interactive two-way audiovisual (units unknown) (unknown) (unknown) (no date) (unknown) (unknown) Time Patient Seen: 20:09 (units unknown) (unknown) (unknown) (no date) (unknown) (unknown) cooperative and follow simple commands. Start titrating down precedex in the am. (units unknown) (unknown) (unknown) (no date) (unknown) (unknown) telecommunication. (units unknown) (unknown) Result panel 2259 (unknown) (no date) (unknown) (unknown) 3.8 mmol/l (unknown) Result panel 2260 (unknown) (no date) (unknown) (unknown) 0 /ul (unknown) (unknown) (no date) (unknown) (unknown) 0.4 % (unknown) (unknown) (no date) (unknown) (unknown) 10.0 g/dl (unknown) (unknown) (no date) (unknown) (unknown) 100 /ul (unknown) (unknown) (no date) (unknown) (unknown) 1300 /ul (unknown) (unknown) (no date) (unknown) (unknown) 155 x10 3/ul (unknown) (unknown) (no date) (unknown) (unknown) 2.5 % (unknown) (unknown) (no date) (unknown) (unknown) 20.3 % (unknown) (unknown) (no date) (unknown) (unknown) 26.4 % (unknown) (unknown) (no date) (unknown) (unknown) 27.0 pg (unknown) (unknown) (no date) (unknown) (unknown) 29.7 % (unknown) (unknown) (no date) (unknown) (unknown) 3.71 x10 6/ul (unknown) (unknown) (no date) (unknown) (unknown) 3100 /ul (unknown) (unknown) (no date) (unknown) (unknown) 33.7 % (unknown) (unknown) (no date) (unknown) (unknown) 4.9 x10 3/ul (unknown) (unknown) (no date) (unknown) (unknown) 400 /ul (unknown) (unknown) (no date) (unknown) (unknown) 63.0 % (unknown) (unknown) (no date) (unknown) (unknown) 7.7 % (unknown) (unknown) (no date) (unknown) (unknown) 80.1 fl (unknown) Result panel 2261 (unknown) (no date) (unknown) (unknown) 0 /ul (unknown) (unknown) (no date) (unknown) (unknown) 0.4 % (unknown) (unknown) (no date) (unknown) (unknown) 10.0 g/dl (unknown) (unknown) (no date) (unknown) (unknown) 100 /ul (unknown) (unknown) (no date) (unknown) (unknown) 1300 /ul (unknown) (unknown) (no date) (unknown) (unknown) 155 x10 3/ul (unknown) (unknown) (no date) (unknown) (unknown) 2.5 % (unknown) (unknown) (no date) (unknown) (unknown) 20.3 % (unknown) (unknown) (no date) (unknown) (unknown) 26.4 % (unknown) (unknown) (no date) (unknown) (unknown) 27.0 pg (unknown) (unknown) (no date) (unknown) (unknown) 29.7 % (unknown) (unknown) (no date) (unknown) (unknown) 3.71 x10 6/ul (unknown) (unknown) (no date) (unknown) (unknown) 3100 /ul (unknown) (unknown) (no date) (unknown) (unknown) 33.7 % (unknown) (unknown) (no date) (unknown) (unknown) 4.9 x10 3/ul (unknown) (unknown) (no date) (unknown) (unknown) 400 /ul (unknown) (unknown) (no date) (unknown) (unknown) 63.0 % (unknown) (unknown) (no date) (unknown) (unknown) 7.7 % (unknown) (unknown) (no date) (unknown) (unknown) 80.1 fl (unknown) Result panel 2262 (unknown) (no date) (unknown) (unknown) 0 /ul (unknown) (unknown) (no date) (unknown) (unknown) 0.4 % (unknown) (unknown) (no date) (unknown) (unknown) 1 (units unknown) (unknown) (unknown) (no date) (unknown) (unknown) 10.0 g/dl (unknown) (unknown) (no date) (unknown) (unknown) 100 /ul (unknown) (unknown) (no date) (unknown) (unknown) 1300 /ul (unknown) (unknown) (no date) (unknown) (unknown) 155 x10 3/ul (unknown) (unknown) (no date) (unknown) (unknown) 2.5 % (unknown) (unknown) (no date) (unknown) (unknown) 20.3 % (unknown) (unknown) (no date) (unknown) (unknown) 26.4 % (unknown) (unknown) (no date) (unknown) (unknown) 27.0 pg (unknown) (unknown) (no date) (unknown) (unknown) 29.7 % (unknown) (unknown) (no date) (unknown) (unknown) 3.71 x10 6/ul (unknown) (unknown) (no date) (unknown) (unknown) 3100 /ul (unknown) (unknown) (no date) (unknown) (unknown) 33.7 % (unknown) (unknown) (no date) (unknown) (unknown) 4.9 x10 3/ul (unknown) (unknown) (no date) (unknown) (unknown) 400 /ul (unknown) (unknown) (no date) (unknown) (unknown) 63.0 % (unknown) (unknown) (no date) (unknown) (unknown) 7.7 % (unknown) (unknown) (no date) (unknown) (unknown) 80.1 fl (unknown) Result panel 2263 (unknown) (no date) (unknown) (unknown) (no value) (units unknown) (unknown) (unknown) (no date) (unknown) (unknown) (past 8 hours): (units unknown) (unknown) (unknown) (no date) (unknown) (unknown) [id number] (units unknown) (unknown) (unknown) (no date) (unknown) (unknown) 01:00 08/03/22 (units unknown) (unknown) (unknown) (no date) (unknown) (unknown) 01:00 (units unknown) (unknown) (unknown) (no date) (unknown) (unknown) 01:30 08/03/22 (units unknown) (unknown) (unknown) (no date) (unknown) (unknown) 02:00 08/03/22 (units unknown) (unknown) (unknown) (no date) (unknown) (unknown) 02:00 (units unknown) (unknown) (unknown) (no date) (unknown) (unknown) 02:14 08/03/22 (units unknown) (unknown) (unknown) (no date) (unknown) (unknown) 02:30 08/03/22 (units unknown) (unknown) (unknown) (no date) (unknown) (unknown) 08/02/22 08/03/22 (units unknown) (unknown) (unknown) (no date) (unknown) (unknown) 08/02/22 21:20 (units unknown) (unknown) (unknown) (no date) (unknown) (unknown) 08/03/22 07:50 (units unknown) (unknown) (unknown) (no date) (unknown) (unknown) 08/03/22 (units unknown) (unknown) (unknown) (no date) (unknown) (unknown) 03:00 08/03/22 (units unknown) (unknown) (unknown) (no date) (unknown) (unknown) 03:00 (units unknown) (unknown) (unknown) (no date) (unknown) (unknown) 03:30 (units unknown) (unknown) (unknown) (no date) (unknown) (unknown) 03:44 08/03/22 (units unknown) (unknown) (unknown) (no date) (unknown) (unknown) 04:00 08/03/22 (units unknown) (unknown) (unknown) (no date) (unknown) (unknown) 04:30 (units unknown) (unknown) (unknown) (no date) (unknown) (unknown) 05:00 08/03/22 (units unknown) (unknown) (unknown) (no date) (unknown) (unknown) 05:30 (units unknown) (unknown) (unknown) (no date) (unknown) (unknown) 06:00 08/03/22 (units unknown) (unknown) (unknown) (no date) (unknown) (unknown) 06:30 (units unknown) (unknown) (unknown) (no date) (unknown) (unknown) 07:00 08/03/22 (units unknown) (unknown) (unknown) (no date) (unknown) (unknown) 07:00 (units unknown) (unknown) (unknown) (no date) (unknown) (unknown) 21:20 07:50 (units unknown) (unknown) (unknown) (no date) (unknown) (unknown) ABD: soft, nontender , nondistended, no organomegaly (units unknown) (unknown) (unknown) (no date) (unknown) (unknown) Age/Sex: 31 / F (units unknown) (unknown) (unknown) (no date) (unknown) (unknown) Alcohol withdrawal delirium, acute, hyperactive (units unknown) (unknown) (unknown) (no date) (unknown) (unknown) Alcoholism (units unknown) (unknown) (unknown) (no date) (unknown) (unknown) Anemia (-2018) (units unknown) (unknown) (unknown) (no date) (unknown) (unknown) Anisocytosis 1+ H (units unknown) (unknown) (unknown) (no date) (unknown) (unknown) Baso # (Auto) 0 (units unknown) (unknown) (unknown) (no date) (unknown) (unknown) Baso % (Auto) 0.4 (units unknown) (unknown) (unknown) (no date) (unknown) (unknown) Blood Pressure 122/76 (units unknown) (unknown) (unknown) (no date) (unknown) (unknown) Blood Pressure 126/83 (units unknown) (unknown) (unknown) (no date) (unknown) (unknown) Blood Pressure 126/88 (units unknown) (unknown) (unknown) (no date) (unknown) (unknown) Blood Pressure 128/80 (units unknown) (unknown) (unknown) (no date) (unknown) (unknown) Blood Pressure 128/83 (units unknown) (unknown) (unknown) (no date) (unknown) (unknown) Blood Pressure 130/81 (units unknown) (unknown) (unknown) (no date) (unknown) (unknown) Blood Pressure 138/77 (units unknown) (unknown) (unknown) (no date) (unknown) (unknown) Blood Pressure (units unknown) (unknown) (unknown) (no date) (unknown) (unknown) CV: regular rate and rhythm, no murmurs (units unknown) (unknown) (unknown) (no date) (unknown) (unknown) : 1990 Acct:[id number] (units unknown) (unknown) (unknown) (no date) (unknown) (unknown) Date of Service: 08/01/22 (units unknown) (unknown) (unknown) (no date) (unknown) (unknown) EXT: warm and well perfused with no edema (units unknown) (unknown) (unknown) (no date) (unknown) (unknown) Eos # (Auto) 100 (units unknown) (unknown) (unknown) (no date) (unknown) (unknown) Eos % (Auto) 2.5 (units unknown) (unknown) (unknown) (no date) (unknown) (unknown) Exam Narrative: (units unknown) (unknown) (unknown) (no date) (unknown) (unknown) Exam (units unknown) (unknown) (unknown) (no date) (unknown) (unknown) Family History (units unknown) (unknown) (unknown) (no date) (unknown) (unknown) Family/Other Alcoholism (units unknown) (unknown) (unknown) (no date) (unknown) (unknown) Family/Other Diabete s mellitus (units unknown) (unknown) (unknown) (no date) (unknown) (unknown) Father Alcoholism (units unknown) (unknown) (unknown) (no date) (unknown) (unknown) GEN: no acute distress, sleeping (units unknown) (unknown) (unknown) (no date) (unknown) (unknown) Grandfather Smoker (units unknown) (unknown) (unknown) (no date) (unknown) (unknown) Grandfather Unknown whether patient has any health problems (units unknown) (unknown) (unknown) (no date) (unknown) (unknown) Grandmother Diabetes mellitus (units unknown) (unknown) (unknown) (no date) (unknown) (unknown) Grandmother Hypoglycemia (units unknown) (unknown) (unknown) (no date) (unknown) (unknown) H/O dilation and curettage (-12/14/16) (units unknown) (unknown) (unknown) (no date) (unknown) (unknown) H/O wisdom tooth extraction () (units unknown) (unknown) (unknown) (no date) (unknown) (unknown) HEENT: moist mucous membranes, PERRL (units unknown) (unknown) (unknown) (no date) (unknown) (unknown) Hct 29.7 L (units unknown) (unknown) (unknown) (no date) (unknown) (unknown) Hgb 10.0 L (units unknown) (unknown) (unknown) (no date) (unknown) (unknown) Insomnia (units unknown) (unknown) (unknown) (no date) (unknown) (unknown) [address] [address] (units unknown) (unknown) (unknown) (no date) (unknown) (unknown) Laboratory Results - last 24 hr (units unknown) (unknown) (unknown) (no date) (unknown) (unknown) Labs (units unknown) (unknown) (unknown) (no date) (unknown) (unknown) Labs: (units unknown) (unknown) (unknown) (no date) (unknown) (unknown) Lymph # (Auto) 1300 (units unknown) (unknown) (unknown) (no date) (unknown) (unknown) Lymph % (Auto) 26.4 (units unknown) (unknown) (unknown) (no date) (unknown) (unknown) MCH 27.0 (units unknown) (unknown) (unknown) (no date) (unknown) (unknown) MCHC 33.7 (units unknown) (unknown) (unknown) (no date) (unknown) (unknown) MCV 80.1 (units unknown) (unknown) (unknown) (no date) (unknown) (unknown) Medical History (units unknown) (unknown) (unknown) (no date) (unknown) (unknown) Menometrorrhagia (units unknown) (unknown) (unknown) (no date) (unknown) (unknown) [place] # (Auto) 400 (units unknown) (unknown) (unknown) (no date) (unknown) (unknown) [place] % (Auto) 7.7 (units unknown) (unknown) (unknown) (no date) (unknown) (unknown) Mother Diabetes mellitus (units unknown) (unknown) (unknown) (no date) (unknown) (unknown) NECK: trachea midline, no JVD (units unknown) (unknown) (unknown) (no date) (unknown) (unknown) NEURO: no focal deficits (units unknown) (unknown) (unknown) (no date) (unknown) (unknown) Narrative (units unknown) (unknown) (unknown) (no date) (unknown) (unknown) Neut # (Auto) 3100 (units unknown) (unknown) (unknown) (no date) (unknown) (unknown) Neut % (Auto) 63.0 (units unknown) (unknown) (unknown) (no date) (unknown) (unknown) Obesity (units unknown) (unknown) (unknown) (no date) (unknown) (unknown) Objective (units unknown) (unknown) (unknown) (no date) (unknown) (unknown) Overweight (units unknown) (unknown) (unknown) (no date) (unknown) (unknown) Oxygen Delivery Method Room Air (units unknown) (unknown) (unknown) (no date) (unknown) (unknown) Oxygen Delivery Method (units unknown) (unknown) (unknown) (no date) (unknown) (unknown) Oxygen Flow Rate 0 (units unknown) (unknown) (unknown) (no date) (unknown) (unknown) PFSH (units unknown) (unknown) (unknown) (no date) (unknown) (unknown) PULM: clear bilaterally (units unknown) (unknown) (unknown) (no date) (unknown) (unknown) Patient: Sarah Connors MR#: M (units unknown) (unknown) (unknown) (no date) (unknown) (unknown) Plt Count 155 (units unknown) (unknown) (unknown) (no date) (unknown) (unknown) Potassium 3.8 (units unknown) (unknown) (unknown) (no date) (unknown) (unknown) Progress Note (units unknown) (unknown) (unknown) (no date) (unknown) (unknown) Provider: Jabari Sena D.O. (units unknown) (unknown) (unknown) (no date) (unknown) (unknown) Pulse Oximetry 94 (units unknown) (unknown) (unknown) (no date) (unknown) (unknown) Pulse Oximetry 95 98 (units unknown) (unknown) (unknown) (no date) (unknown) (unknown) Pulse Oximetry 98 98 (units unknown) (unknown) (unknown) (no date) (unknown) (unknown) Pulse Oximetry 98 (units unknown) (unknown) (unknown) (no date) (unknown) (unknown) Pulse Oximetry 99 100 (units unknown) (unknown) (unknown) (no date) (unknown) (unknown) Pulse Oximetry 99 98 (units unknown) (unknown) (unknown) (no date) (unknown) (unknown) Pulse Oximetry 99 (units unknown) (unknown) (unknown) (no date) (unknown) (unknown) Pulse Rate 45 L (units unknown) (unknown) (unknown) (no date) (unknown) (unknown) Pulse Rate 46 L 46 L (units unknown) (unknown) (unknown) (no date) (unknown) (unknown) Pulse Rate 47 L 48 L (units unknown) (unknown) (unknown) (no date) (unknown) (unknown) Pulse Rate 47 L (units unknown) (unknown) (unknown) (no date) (unknown) (unknown) Pulse Rate 48 L (units unknown) (unknown) (unknown) (no date) (unknown) (unknown) Pulse Rate 49 L 47 L (units unknown) (unknown) (unknown) (no date) (unknown) (unknown) Pulse Rate 49 L 49 L (units unknown) (unknown) (unknown) (no date) (unknown) (unknown) Pulse Rate 50 L 50 L (units unknown) (unknown) (unknown) (no date) (unknown) (unknown) RBC 3.71 L (units unknown) (unknown) (unknown) (no date) (unknown) (unknown) RBC Morphology Not Reportable (units unknown) (unknown) (unknown) (no date) (unknown) (unknown) RDW 20.3 H (units unknown) (unknown) (unknown) (no date) (unknown) (unknown) Respiratory Rate 16 15 (units unknown) (unknown) (unknown) (no date) (unknown) (unknown) Respiratory Rate 16 (units unknown) (unknown) (unknown) (no date) (unknown) (unknown) Respiratory Rate 17 16 (units unknown) (unknown) (unknown) (no date) (unknown) (unknown) Respiratory Rate 18 22 (units unknown) (unknown) (unknown) (no date) (unknown) (unknown) Respiratory Rate 19 19 (units unknown) (unknown) (unknown) (no date) (unknown) (unknown) Respiratory Rate 19 (units unknown) (unknown) (unknown) (no date) (unknown) (unknown) Respiratory Rate 20 17 (units unknown) (unknown) (unknown) (no date) (unknown) (unknown) S/P myringotomy with insertion of tube (units unknown) (unknown) (unknown) (no date) (unknown) (unknown) (spontaneous vaginal delivery) (09/05/18) (units unknown) (unknown) (unknown) (no date) (unknown) (unknown) Signed By: (units unknown) (unknown) (unknown) (no date) (unknown) (unknown) Smoker (units unknown) (unknown) (unknown) (no date) (unknown) (unknown) Smoking Status: Former smoker (units unknown) (unknown) (unknown) (no date) (unknown) (unknown) Social History (units unknown) (unknown) (unknown) (no date) (unknown) (unknown) Surgical History (units unknown) (unknown) (unknown) (no date) (unknown) (unknown) Temperature 97.7 F (units unknown) (unknown) (unknown) (no date) (unknown) (unknown) Temperature 98.7 F (units unknown) (unknown) (unknown) (no date) (unknown) (unknown) Temperature (units unknown) (unknown) (unknown) (no date) (unknown) (unknown) Vital Signs (units unknown) (unknown) (unknown) (no date) (unknown) (unknown) WBC 4.9 (units unknown) (unknown) (unknown) (no date) (unknown) (unknown) [Embedded Image Not Available] (units unknown) (unknown) (unknown) (no date) (unknown) (unknown) alcohol intake: current (units unknown) (unknown) (unknown) (no date) (unknown) (unknown) current occupational exposures/hazards: Yes (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 with Pandemic ) (units unknown) (unknown) (unknown) (no date) (unknown) (unknown) education level: college 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[employer] (units unknown) (unknown) (unknown) (no date) (unknown) (unknown) household members: significant other (units unknown) (unknown) (unknown) (no date) (unknown) (unknown) marital status: (units unknown) (unknown) (unknown) (no date) (unknown) (unknown) number of children: 1 (units unknown) (unknown) (unknown) (no date) (unknown) (unknown) occupational status: employed (units unknown) (unknown) (unknown) (no date) (unknown) (unknown) second hand exposure : No (growing up as a child - not currently) (units unknown) (unknown) (unknown) (no date) (unknown) (unknown) special renee needs: No (units unknown) (unknown) (unknown) (no date) (unknown) (unknown) substance use type: does not use (units unknown) (unknown) Result panel [id number] (unknown) (no date) (unknown) (unknown) > 60 ml/min (unknown) (unknown) (no date) (unknown) (unknown) > 60 ml/min (unknown) (unknown) (no date) (unknown) (unknown) 0.55 mg/dl (unknown) (unknown) (no date) (unknown) (unknown) 101 mmol/l (unknown) (unknown) (no date) (unknown) (unknown) 131 mg/dl (unknown) (unknown) (no date) (unknown) (unknown) 131 mg/dl (unknown) (unknown) (no date) (unknown) (unknown) 134 mmol/l (unknown) (unknown) (no date) (unknown) (unknown) 2 mg/dl (unknown) (unknown) (no date) (unknown) (unknown) 28 mmol/l (unknown) (unknown) (no date) (unknown) (unknown) 3.4 mmol/l (unknown) (unknown) (no date) (unknown) (unknown) 3.6 (units unknown) (unknown) (unknown) (no date) (unknown) (unknown) 8.1 mg/dl (unknown) Result panel [id number] (unknown) (no date) (unknown) (unknown) (no value) (units unknown) (unknown) (unknown) (no date) (unknown) (unknown) (past 8 hours): (units unknown) (unknown) (unknown) (no date) (unknown) (unknown) [id number] (units unknown) (unknown) (unknown) (no date) (unknown) (unknown) 01:00 08/03/22 (units unknown) (unknown) (unknown) (no date) (unknown) (unknown) 01:00 (units unknown) (unknown) (unknown) (no date) (unknown) (unknown) 01:30 08/03/22 (units unknown) (unknown) (unknown) (no date) (unknown) (unknown) 02:00 08/03/22 (units unknown) (unknown) (unknown) (no date) (unknown) (unknown) 02:00 (units unknown) (unknown) (unknown) (no date) (unknown) (unknown) 02:14 08/03/22 (units unknown) (unknown) (unknown) (no date) (unknown) (unknown) 02:30 08/03/22 (units unknown) (unknown) (unknown) (no date) (unknown) (unknown) 07/14/22 [Rx Confirmed 08/01/22] (units unknown) (unknown) (unknown) (no date) (unknown) (unknown) 08/01/22] (units unknown) (unknown) (unknown) (no date) (unknown) (unknown) 08/02/22 08/03/22 08/03/22 (units unknown) (unknown) (unknown) (no date) (unknown) (unknown) 08/03/22 07:50 (units unknown) (unknown) (unknown) (no date) (unknown) (unknown) 08/03/22 (units unknown) (unknown) (unknown) (no date) (unknown) (unknown) 03:00 08/03/22 (units unknown) (unknown) (unknown) (no date) (unknown) (unknown) 03:00 (units unknown) (unknown) (unknown) (no date) (unknown) (unknown) 03:30 (units unknown) (unknown) (unknown) (no date) (unknown) (unknown) 03:44 08/03/22 (units unknown) (unknown) (unknown) (no date) (unknown) (unknown) 04:00 08/03/22 (units unknown) (unknown) (unknown) (no date) (unknown) (unknown) 04:30 (units unknown) (unknown) (unknown) (no date) (unknown) (unknown) 05:00 08/03/22 (units unknown) (unknown) (unknown) (no date) (unknown) (unknown) 05:30 (units unknown) (unknown) (unknown) (no date) (unknown) (unknown) 06:00 08/03/22 (units unknown) (unknown) (unknown) (no date) (unknown) (unknown) 06:30 (units unknown) (unknown) (unknown) (no date) (unknown) (unknown) 07:00 08/03/22 (units unknown) (unknown) (unknown) (no date) (unknown) (unknown) 07:00 (units unknown) (unknown) (unknown) (no date) (unknown) (unknown) 08:15 08/03/22 02:15 (units unknown) (unknown) (unknown) (no date) (unknown) (unknown) 19:23 (units unknown) (unknown) (unknown) (no date) (unknown) (unknown) 2 MCG/KG/HR (units unknown) (unknown) (unknown) (no date) (unknown) (unknown) 21:20 07:50 07:50 (units unknown) (unknown) (unknown) (no date) (unknown) (unknown) 22:23 (units unknown) (unknown) (unknown) (no date) (unknown) (unknown) Administration (units unknown) (unknown) (unknown) (no date) (unknown) (unknown) Age/Sex: 31 / F (units unknown) (unknown) (unknown) (no date) (unknown) (unknown) Alcohol Withdrawal (units unknown) (unknown) (unknown) (no date) (unknown) (unknown) Anisocytosis 1+ H (units unknown) (unknown) (unknown) (no date) (unknown) (unknown) BID SANDY Administration (units unknown) (unknown) (unknown) (no date) (unknown) (unknown) BUN 2 L (units unknown) (unknown) (unknown) (no date) (unknown) (unknown) BUN/Creatinine Ratio 3.6 L (units unknown) (unknown) (unknown) (no date) (unknown) (unknown) Baso # (Auto) 0 (units unknown) (unknown) (unknown) (no date) (unknown) (unknown) Baso % (Auto) 0.4 (units unknown) (unknown) (unknown) (no date) (unknown) (unknown) Blood Pressure 122/76 (units unknown) (unknown) (unknown) (no date) (unknown) (unknown) Blood Pressure 126/83 (units unknown) (unknown) (unknown) (no date) (unknown) (unknown) Blood Pressure 126/88 (units unknown) (unknown) (unknown) (no date) (unknown) (unknown) Blood Pressure 128/80 (units unknown) (unknown) (unknown) (no date) (unknown) (unknown) Blood Pressure 128/83 (units unknown) (unknown) (unknown) (no date) (unknown) (unknown) Blood Pressure 130/81 (units unknown) (unknown) (unknown) (no date) (unknown) (unknown) Blood Pressure 138/77 (units unknown) (unknown) (unknown) (no date) (unknown) (unknown) Blood Pressure (units unknown) (unknown) (unknown) (no date) (unknown) (unknown) CIWAPRN PRN Administration (units unknown) (unknown) (unknown) (no date) (unknown) (unknown) CONT SANDY Administration (units unknown) (unknown) (unknown) (no date) (unknown) (unknown) Calcium 8.1 L (units unknown) (unknown) (unknown) (no date) (unknown) (unknown) Carbon Dioxide 28 (units unknown) (unknown) (unknown) (no date) (unknown) (unknown) Chlordiazepoxide 25 Mg Capsule PO Not Given (units unknown) (unknown) (unknown) (no date) (unknown) (unknown) Chlordiazepoxide HCl 50 mg 08/01/22 12:00 08/03/22 06:38 (units unknown) (unknown) (unknown) (no date) (unknown) (unknown) Chloride 101 (units unknown) (unknown) (unknown) (no date) (unknown) (unknown) Chloride IV Infused (units unknown) (unknown) (unknown) (no date) (unknown) (unknown) Confirmed 08/01/22] (units unknown) (unknown) (unknown) (no date) (unknown) (unknown) Consent obtained for tele-bioinformatics technician care: Yes (units unknown) (unknown) (unknown) (no date) (unknown) (unknown) Creatinine 0.55 (units unknown) (unknown) (unknown) (no date) (unknown) (unknown) Current Medications (units unknown) (unknown) (unknown) (no date) (unknown) (unknown) DAILY SANDY Administration (units unknown) (unknown) (unknown) (no date) (unknown) (unknown) DAILY SANDY Infusion (units unknown) (unknown) (unknown) (no date) (unknown) (unknown) DAILY SANDY (units unknown) (unknown) (unknown) (no date) (unknown) (unknown) : 1990 Acct:[id number] (units unknown) (unknown) (unknown) (no date) (unknown) (unknown) Date of Service: 08/01/22 (units unknown) (unknown) (unknown) (no date) (unknown) (unknown) Dextrose 5%-Lactated Ringers IV 84 mls/hr (units unknown) (unknown) (unknown) (no date) (unknown) (unknown) Dextrose/Lactated Ringer's 1,000 mls @ 84 mls/hr 08/01/22 20:15 08/02/22 (units unknown) (unknown) (unknown) (no date) (unknown) (unknown) Enoxaparin 40 Mg/0.4 Ml Syringe SUBCUT 40 mg (units unknown) (unknown) (unknown) (no date) (unknown) (unknown) Enoxaparin Sodium 40 mg 08/02/22 09:45 08/02/22 10:14 (units unknown) (unknown) (unknown) (no date) (unknown) (unknown) Eos # (Auto) 100 (units unknown) (unknown) (unknown) (no date) (unknown) (unknown) Eos % (Auto) 2.5 (units unknown) (unknown) (unknown) (no date) (unknown) (unknown) Estimated GFR > 60 (units unknown) (unknown) (unknown) (no date) (unknown) (unknown) Exam (units unknown) (unknown) (unknown) (no date) (unknown) (unknown) Fluoxetine 10 Mg Capsule PO Not Given (units unknown) (unknown) (unknown) (no date) (unknown) (unknown) Fluoxetine HCl 10 mg 08/01/22 09:00 08/02/22 08:11 (units unknown) (unknown) (unknown) (no date) (unknown) (unknown) Folic Acid 1 Mg Tablet PO Not Given (units unknown) (unknown) (unknown) (no date) (unknown) (unknown) Folic Acid 1 mg 08/01/22 09:00 08/02/22 08:11 (units unknown) (unknown) (unknown) (no date) (unknown) (unknown) Generic Name Dose Route Start Last Admin (units unknown) (unknown) (unknown) (no date) (unknown) (unknown) Glucose 131 H (units unknown) (unknown) (unknown) (no date) (unknown) (unknown) Hct 29.7 L (units unknown) (unknown) (unknown) (no date) (unknown) (unknown) Hgb 10.0 L (units unknown) (unknown) (unknown) (no date) (unknown) (unknown) Home Medications (units unknown) (unknown) (unknown) (no date) (unknown) (unknown) Hydroxyzine Pamoate 25 Mg Capsule PO Not Given (units unknown) (unknown) (unknown) (no date) (unknown) (unknown) Hydroxyzine Pamoate 50 mg 08/01/22 09:00 08/02/22 08:11 (units unknown) (unknown) (unknown) (no date) (unknown) (unknown) Interval history: (units unknown) (unknown) (unknown) (no date) (unknown) (unknown) [address] [id number] (units unknown) (unknown) (unknown) (no date) (unknown) (unknown) Laboratory Results - last 24 hr (units unknown) (unknown) (unknown) (no date) (unknown) (unknown) Labs (units unknown) (unknown) (unknown) (no date) (unknown) (unknown) Labs: (units unknown) (unknown) (unknown) (no date) (unknown) (unknown) Lorazepam 0 mg 08/01/22 08:00 08/02/22 12:31 (units unknown) (unknown) (unknown) (no date) (unknown) (unknown) Lorazepam 2 Mg/Ml In j IV 2 mg (units unknown) (unknown) (unknown) (no date) (unknown) (unknown) Lymph # (Auto) 1300 (units unknown) (unknown) (unknown) (no date) (unknown) (unknown) Lymph % (Auto) 26.4 (units unknown) (unknown) (unknown) (no date) (unknown) (unknown) MCH 27.0 (units unknown) (unknown) (unknown) (no date) (unknown) (unknown) MCHC 33.7 (units unknown) (unknown) (unknown) (no date) (unknown) (unknown) MCV 80.1 (units unknown) (unknown) (unknown) (no date) (unknown) (unknown) Medications: (units unknown) (unknown) (unknown) (no date) (unknown) (unknown) [place] # (Auto) 400 (units unknown) (unknown) (unknown) (no date) (unknown) (unknown) [place] % (Auto) 7.7 (units unknown) (unknown) (unknown) (no date) (unknown) (unknown) Multivitamin 1 Table t PO Not Given (units unknown) (unknown) (unknown) (no date) (unknown) (unknown) Multivitamins 1 tab 08/01/22 09:00 08/02/22 08:11 (units unknown) (unknown) (unknown) (no date) (unknown) (unknown) Neut # (Auto) 3100 (units unknown) (unknown) (unknown) (no date) (unknown) (unknown) Neut % (Auto) 63.0 (units unknown) (unknown) (unknown) (no date) (unknown) (unknown) Objective (units unknown) (unknown) (unknown) (no date) (unknown) (unknown) Oxygen Delivery Method Room Air (units unknown) (unknown) (unknown) (no date) (unknown) (unknown) Oxygen Delivery Method (units unknown) (unknown) (unknown) (no date) (unknown) (unknown) Oxygen Flow Rate 0 (units unknown) (unknown) (unknown) (no date) (unknown) (unknown) Pantoprazole 40 Mg Vial IV 40 mg (units unknown) (unknown) (unknown) (no date) (unknown) (unknown) Pantoprazole Sodium 40 mg 08/01/22 09:00 08/02/22 09:55 (units unknown) (unknown) (unknown) (no date) (unknown) (unknown) Patient Location: ICU (units unknown) (unknown) (unknown) (no date) (unknown) (unknown) Patient summary: 31 yo woman with PMH Of ETOH abuse admitted 08/01/22 for ETOH (units unknown) (unknown) (unknown) (no date) (unknown) (unknown) Patient: Sarah Connors MR#: M (units unknown) (unknown) (unknown) (no date) (unknown) (unknown) Phenobarbital 60 mg 08/01/22 09:00 08/02/22 21:29 (units unknown) (unknown) (unknown) (no date) (unknown) (unknown) Phenobarbital 65 Mg/Ml Vial IV 60 mg (units unknown) (unknown) (unknown) (no date) (unknown) (unknown) Plt Count 155 (units unknown) (unknown) (unknown) (no date) (unknown) (unknown) Potassium 3.8 3.4 (units unknown) (unknown) (unknown) (no date) (unknown) (unknown) Precedex IV 1 mcg/kg/hr (units unknown) (unknown) (unknown) (no date) (unknown) (unknown) Protocol (units unknown) (unknown) (unknown) (no date) (unknown) (unknown) Provider: Riki Clay MD (units unknown) (unknown) (unknown) (no date) (unknown) (unknown) Pulse Oximetry 94 (units unknown) (unknown) (unknown) (no date) (unknown) (unknown) Pulse Oximetry 95 98 (units unknown) (unknown) (unknown) (no date) (unknown) (unknown) Pulse Oximetry 98 98 (units unknown) (unknown) (unknown) (no date) (unknown) (unknown) Pulse Oximetry 98 (units unknown) (unknown) (unknown) (no date) (unknown) (unknown) Pulse Oximetry 99 100 (units unknown) (unknown) (unknown) (no date) (unknown) (unknown) Pulse Oximetry 99 98 (units unknown) (unknown) (unknown) (no date) (unknown) (unknown) Pulse Oximetry 99 (units unknown) (unknown) (unknown) (no date) (unknown) (unknown) Pulse Rate 45 L (units unknown) (unknown) (unknown) (no date) (unknown) (unknown) Pulse Rate 46 L 46 L (units unknown) (unknown) (unknown) (no date) (unknown) (unknown) Pulse Rate 47 L 48 L (units unknown) (unknown) (unknown) (no date) (unknown) (unknown) Pulse Rate 47 L (units unknown) (unknown) (unknown) (no date) (unknown) (unknown) Pulse Rate 48 L (units unknown) (unknown) (unknown) (no date) (unknown) (unknown) Pulse Rate 49 L 47 L (units unknown) (unknown) (unknown) (no date) (unknown) (unknown) Pulse Rate 49 L 49 L (units unknown) (unknown) (unknown) (no date) (unknown) (unknown) Pulse Rate 50 L 50 L (units unknown) (unknown) (unknown) (no date) (unknown) (unknown) Pyridoxine 100 Mg/Ml Vial IV 100 mg (units unknown) (unknown) (unknown) (no date) (unknown) (unknown) Pyridoxine HCl 100 m g 08/01/22 09:00 08/02/22 09:55 (units unknown) (unknown) (unknown) (no date) (unknown) (unknown) Q6HR SANDY (units unknown) (unknown) (unknown) (no date) (unknown) (unknown) RBC 3.71 L (units unknown) (unknown) (unknown) (no date) (unknown) (unknown) RBC Morphology Not Reportable (units unknown) (unknown) (unknown) (no date) (unknown) (unknown) RDW 20.3 H (units unknown) (unknown) (unknown) (no date) (unknown) (unknown) Respiratory Rate 16 15 (units unknown) (unknown) (unknown) (no date) (unknown) (unknown) Respiratory Rate 16 (units unknown) (unknown) (unknown) (no date) (unknown) (unknown) Respiratory Rate 17 16 (units unknown) (unknown) (unknown) (no date) (unknown) (unknown) Respiratory Rate 18 22 (units unknown) (unknown) (unknown) (no date) (unknown) (unknown) Respiratory Rate 19 19 (units unknown) (unknown) (unknown) (no date) (unknown) (unknown) Respiratory Rate 19 (units unknown) (unknown) (unknown) (no date) (unknown) (unknown) Respiratory Rate 20 17 (units unknown) (unknown) (unknown) (no date) (unknown) (unknown) Signed By: (units unknown) (unknown) (unknown) (no date) (unknown) (unknown) Sodium 134 L (units unknown) (unknown) (unknown) (no date) (unknown) (unknown) Subjective (units unknown) (unknown) (unknown) (no date) (unknown) (unknown) TITRATE SANDY 13.494 mls/hr (units unknown) (unknown) (unknown) (no date) (unknown) (unknown) Teleintensivist Progress Note (units unknown) (unknown) (unknown) (no date) (unknown) (unknown) Temperature 97.7 F (units unknown) (unknown) (unknown) (no date) (unknown) (unknown) Temperature 98.7 F (units unknown) (unknown) (unknown) (no date) (unknown) (unknown) Temperature (units unknown) (unknown) (unknown) (no date) (unknown) (unknown) Thiamine HCl 100 mg/ Sodium 101 mls @ 404 mls/hr 08/01/22 09:00 08/02/22 (units unknown) (unknown) (unknown) (no date) (unknown) (unknown) Trade Name Edel PRN Reason Stop Dose Admin (units unknown) (unknown) (unknown) (no date) (unknown) (unknown) Visit Medications (administered) (units unknown) (unknown) (unknown) (no date) (unknown) (unknown) Vital Signs (units unknown) (unknown) (unknown) (no date) (unknown) (unknown) WBC 4.9 (units unknown) (unknown) (unknown) (no date) (unknown) (unknown) [Embedded Image Not Available] (units unknown) (unknown) (unknown) (no date) (unknown) (unknown) [Rx Confirmed 08/01/22] (units unknown) (unknown) (unknown) (no date) (unknown) (unknown) dexmedeTOMIDine in 0.9 % NaCL 400 mcg in 100 mls @ 26.989 mls/hr 08/01/22 (units unknown) (unknown) (unknown) (no date) (unknown) (unknown) fluoxetine 10 mg capsule 10 mg PO DAILY 07/13/22 [History Confirmed 08/01/22] (units unknown) (unknown) (unknown) (no date) (unknown) (unknown) hydroxyzine HCl 50 m g tablet 50 mg PO DAILY 07/13/22 [History Confirmed (units unknown) (unknown) (unknown) (no date) (unknown) (unknown) multivitamin with folic acid 400 mcg tablet (Tab-A-Kael) 1 tab PO DAILY #30 tabs (units unknown) (unknown) (unknown) (no date) (unknown) (unknown) pantoprazole 40 mg tablet,delayed release 40 mg PO 0700 #30 tabs 07/14/22 [Rx (units unknown) (unknown) (unknown) (no date) (unknown) (unknown) quetiapine 300 mg tablet 300 mg PO DAILY 07/13/22 [History Confirmed 08/01/22] (units unknown) (unknown) (unknown) (no date) (unknown) (unknown) thiamine mononitrate (vit B1) 100 mg tablet 100 mg PO DAILY #30 tabs 07/14/22 (units unknown) (unknown) (unknown) (no date) (unknown) (unknown) withrawal and DTS. PT. given ativan, phenobarb, and placed on precedex drip. (units unknown) (unknown) Result panel [id number] (unknown) (no date) (unknown) (unknown) (no value) (units unknown) (unknown) (unknown) (no date) (unknown) (unknown) (past 8 hours): (units unknown) (unknown) (unknown) (no date) (unknown) (unknown) [id number] (units unknown) (unknown) (unknown) (no date) (unknown) (unknown) 01:00 08/03/22 (units unknown) (unknown) (unknown) (no date) (unknown) (unknown) 01:00 (units unknown) (unknown) (unknown) (no date) (unknown) (unknown) 01:30 08/03/22 (units unknown) (unknown) (unknown) (no date) (unknown) (unknown) 02:00 08/03/22 (units unknown) (unknown) (unknown) (no date) (unknown) (unknown) 02:00 (units unknown) (unknown) (unknown) (no date) (unknown) (unknown) 02:14 08/03/22 (units unknown) (unknown) (unknown) (no date) (unknown) (unknown) 02:30 08/03/22 (units unknown) (unknown) (unknown) (no date) (unknown) (unknown) 07/14/22 [Rx Confirmed 08/01/22] (units unknown) (unknown) (unknown) (no date) (unknown) (unknown) 08/01/22] (units unknown) (unknown) (unknown) (no date) (unknown) (unknown) 08/02/22 08/03/22 08/03/22 (units unknown) (unknown) (unknown) (no date) (unknown) (unknown) 08/03/22 07:50 (units unknown) (unknown) (unknown) (no date) (unknown) (unknown) 08/03/22 (units unknown) (unknown) (unknown) (no date) (unknown) (unknown) 03:00 08/03/22 (units unknown) (unknown) (unknown) (no date) (unknown) (unknown) 03:00 (units unknown) (unknown) (unknown) (no date) (unknown) (unknown) 03:30 (units unknown) (unknown) (unknown) (no date) (unknown) (unknown) 03:44 08/03/22 (units unknown) (unknown) (unknown) (no date) (unknown) (unknown) 04:00 08/03/22 (units unknown) (unknown) (unknown) (no date) (unknown) (unknown) 04:30 (units unknown) (unknown) (unknown) (no date) (unknown) (unknown) 05:00 08/03/22 (units unknown) (unknown) (unknown) (no date) (unknown) (unknown) 05:30 (units unknown) (unknown) (unknown) (no date) (unknown) (unknown) 06:00 08/03/22 (units unknown) (unknown) (unknown) (no date) (unknown) (unknown) 06:30 (units unknown) (unknown) (unknown) (no date) (unknown) (unknown) 07:00 08/03/22 (units unknown) (unknown) (unknown) (no date) (unknown) (unknown) 07:00 (units unknown) (unknown) (unknown) (no date) (unknown) (unknown) 08:15 08/03/22 02:15 (units unknown) (unknown) (unknown) (no date) (unknown) (unknown) 19:23 (units unknown) (unknown) (unknown) (no date) (unknown) (unknown) 2 MCG/KG/HR (units unknown) (unknown) (unknown) (no date) (unknown) (unknown) 21:20 07:50 07:50 (units unknown) (unknown) (unknown) (no date) (unknown) (unknown) 22:23 (units unknown) (unknown) (unknown) (no date) (unknown) (unknown) Administration (units unknown) (unknown) (unknown) (no date) (unknown) (unknown) Age/Sex: 31 / F (units unknown) (unknown) (unknown) (no date) (unknown) (unknown) Alcohol Withdrawal (units unknown) (unknown) (unknown) (no date) (unknown) (unknown) Anisocytosis 1+ H (units unknown) (unknown) (unknown) (no date) (unknown) (unknown) Assessment + Plan narrative: (units unknown) (unknown) (unknown) (no date) (unknown) (unknown) Assessment + Plan (units unknown) (unknown) (unknown) (no date) (unknown) (unknown) Assessmet (units unknown) (unknown) (unknown) (no date) (unknown) (unknown) BID SANDY Administration (units unknown) (unknown) (unknown) (no date) (unknown) (unknown) BUN 2 L (units unknown) (unknown) (unknown) (no date) (unknown) (unknown) BUN/Creatinine Ratio 3.6 L (units unknown) (unknown) (unknown) (no date) (unknown) (unknown) Baso # (Auto) 0 (units unknown) (unknown) (unknown) (no date) (unknown) (unknown) Baso % (Auto) 0.4 (units unknown) (unknown) (unknown) (no date) (unknown) (unknown) Blood Pressure 122/76 (units unknown) (unknown) (unknown) (no date) (unknown) (unknown) Blood Pressure 126/83 (units unknown) (unknown) (unknown) (no date) (unknown) (unknown) Blood Pressure 126/88 (units unknown) (unknown) (unknown) (no date) (unknown) (unknown) Blood Pressure 128/80 (units unknown) (unknown) (unknown) (no date) (unknown) (unknown) Blood Pressure 128/83 (units unknown) (unknown) (unknown) (no date) (unknown) (unknown) Blood Pressure 130/81 (units unknown) (unknown) (unknown) (no date) (unknown) (unknown) Blood Pressure 138/77 (units unknown) (unknown) (unknown) (no date) (unknown) (unknown) Blood Pressure (units unknown) (unknown) (unknown) (no date) (unknown) (unknown) CIWAPRN PRN Administration (units unknown) (unknown) (unknown) (no date) (unknown) (unknown) CONT SANDY Administration (units unknown) (unknown) (unknown) (no date) (unknown) (unknown) Calcium 8.1 L (units unknown) (unknown) (unknown) (no date) (unknown) (unknown) Carbon Dioxide 28 (units unknown) (unknown) (unknown) (no date) (unknown) (unknown) Chlordiazepoxide 25 Mg Capsule PO Not Given (units unknown) (unknown) (unknown) (no date) (unknown) (unknown) Chlordiazepoxide HCl 50 mg 08/01/22 12:00 08/03/22 06:38 (units unknown) (unknown) (unknown) (no date) (unknown) (unknown) Chloride 101 (units unknown) (unknown) (unknown) (no date) (unknown) (unknown) Chloride IV Infused (units unknown) (unknown) (unknown) (no date) (unknown) (unknown) Confirmed 08/01/22] (units unknown) (unknown) (unknown) (no date) (unknown) (unknown) Consent obtained for tele-bioinformatics technician care: Yes (units unknown) (unknown) (unknown) (no date) (unknown) (unknown) Creatinine 0.55 (units unknown) (unknown) (unknown) (no date) (unknown) (unknown) Current Medications (units unknown) (unknown) (unknown) (no date) (unknown) (unknown) DAILY SANDY Administration (units unknown) (unknown) (unknown) (no date) (unknown) (unknown) DAILY SANDY Infusion (units unknown) (unknown) (unknown) (no date) (unknown) (unknown) DAILY SANDY (units unknown) (unknown) (unknown) (no date) (unknown) (unknown) : 1990 Acct:[id number] (units unknown) (unknown) (unknown) (no date) (unknown) (unknown) Date of Service: 08/01/22 (units unknown) (unknown) (unknown) (no date) (unknown) (unknown) Dextrose 5%-Lactated Ringers IV 84 mls/hr (units unknown) (unknown) (unknown) (no date) (unknown) (unknown) Dextrose/Lactated Ringer's 1,000 mls @ 84 mls/hr 08/01/22 20:15 08/02/22 (units unknown) (unknown) (unknown) (no date) (unknown) (unknown) ETOH withdrawal/DTs (units unknown) (unknown) (unknown) (no date) (unknown) (unknown) Enoxaparin 40 Mg/0.4 Ml Syringe SUBCUT 40 mg (units unknown) (unknown) (unknown) (no date) (unknown) (unknown) Enoxaparin Sodium 40 mg 08/02/22 09:45 08/02/22 10:14 (units unknown) (unknown) (unknown) (no date) (unknown) (unknown) Eos # (Auto) 100 (units unknown) (unknown) (unknown) (no date) (unknown) (unknown) Eos % (Auto) 2.5 (units unknown) (unknown) (unknown) (no date) (unknown) (unknown) Estimated GFR > 60 (units unknown) (unknown) (unknown) (no date) (unknown) (unknown) Exam Narrative: (units unknown) (unknown) (unknown) (no date) (unknown) (unknown) Exam (units unknown) (unknown) (unknown) (no date) (unknown) (unknown) Fluoxetine 10 Mg Capsule PO Not Given (units unknown) (unknown) (unknown) (no date) (unknown) (unknown) Fluoxetine HCl 10 mg 08/01/22 09:00 08/02/22 08:11 (units unknown) (unknown) (unknown) (no date) (unknown) (unknown) Folic Acid 1 Mg Tablet PO Not Given (units unknown) (unknown) (unknown) (no date) (unknown) (unknown) Folic Acid 1 mg 08/01/22 09:00 08/02/22 08:11 (units unknown) (unknown) (unknown) (no date) (unknown) (unknown) Generic Name Dose Route Start Last Admin (units unknown) (unknown) (unknown) (no date) (unknown) (unknown) Glucose 131 H (units unknown) (unknown) (unknown) (no date) (unknown) (unknown) Hct 29.7 L (units unknown) (unknown) (unknown) (no date) (unknown) (unknown) Hgb 10.0 L (units unknown) (unknown) (unknown) (no date) (unknown) (unknown) Home Medications (units unknown) (unknown) (unknown) (no date) (unknown) (unknown) Hydroxyzine Pamoate 25 Mg Capsule PO Not Given (units unknown) (unknown) (unknown) (no date) (unknown) (unknown) Hydroxyzine Pamoate 50 mg 08/01/22 09:00 08/02/22 08:11 (units unknown) (unknown) (unknown) (no date) (unknown) (unknown) Interval history: (units unknown) (unknown) (unknown) (no date) (unknown) (unknown) [address] [address] (units unknown) (unknown) (unknown) (no date) (unknown) (unknown) Laboratory Results - last 24 hr (units unknown) (unknown) (unknown) (no date) (unknown) (unknown) Labs (units unknown) (unknown) (unknown) (no date) (unknown) (unknown) Labs: (units unknown) (unknown) (unknown) (no date) (unknown) (unknown) Lorazepam 0 mg 08/01/22 08:00 08/02/22 12:31 (units unknown) (unknown) (unknown) (no date) (unknown) (unknown) Lorazepam 2 Mg/Ml In j IV 2 mg (units unknown) (unknown) (unknown) (no date) (unknown) (unknown) Lymph # (Auto) 1300 (units unknown) (unknown) (unknown) (no date) (unknown) (unknown) Lymph % (Auto) 26.4 (units unknown) (unknown) (unknown) (no date) (unknown) (unknown) MCH 27.0 (units unknown) (unknown) (unknown) (no date) (unknown) (unknown) MCHC 33.7 (units unknown) (unknown) (unknown) (no date) (unknown) (unknown) MCV 80.1 (units unknown) (unknown) (unknown) (no date) (unknown) (unknown) Medications: (units unknown) (unknown) (unknown) (no date) (unknown) (unknown) [place] # (Auto) 400 (units unknown) (unknown) (unknown) (no date) (unknown) (unknown) [place] % (Auto) 7.7 (units unknown) (unknown) (unknown) (no date) (unknown) (unknown) Multivitamin 1 Table t PO Not Given (units unknown) (unknown) (unknown) (no date) (unknown) (unknown) Multivitamins 1 tab 08/01/22 09:00 08/02/22 08:11 (units unknown) (unknown) (unknown) (no date) (unknown) (unknown) Narrative (units unknown) (unknown) (unknown) (no date) (unknown) (unknown) Neut # (Auto) 3100 (units unknown) (unknown) (unknown) (no date) (unknown) (unknown) Neut % (Auto) 63.0 (units unknown) (unknown) (unknown) (no date) (unknown) (unknown) Objective (units unknown) (unknown) (unknown) (no date) (unknown) (unknown) Oxygen Delivery Method Room Air (units unknown) (unknown) (unknown) (no date) (unknown) (unknown) Oxygen Delivery Method (units unknown) (unknown) (unknown) (no date) (unknown) (unknown) Oxygen Flow Rate 0 (units unknown) (unknown) (unknown) (no date) (unknown) (unknown) Pantoprazole 40 Mg Vial IV 40 mg (units unknown) (unknown) (unknown) (no date) (unknown) (unknown) Pantoprazole Sodium 40 mg 08/01/22 09:00 08/02/22 09:55 (units unknown) (unknown) (unknown) (no date) (unknown) (unknown) Patient Location: ICU (units unknown) (unknown) (unknown) (no date) (unknown) (unknown) Patient summary: 31 yo woman with PMH Of ETOH abuse admitted 08/01/22 for ETOH (units unknown) (unknown) (unknown) (no date) (unknown) (unknown) Patient: Sarah Connors MR#: M (units unknown) (unknown) (unknown) (no date) (unknown) (unknown) Patinet seen over [address] audio-visual system. She is alert, calm, and cooperative (units unknown) (unknown) (unknown) (no date) (unknown) (unknown) Phenobarbital 60 mg 08/01/22 09:00 08/02/22 21:29 (units unknown) (unknown) (unknown) (no date) (unknown) (unknown) Phenobarbital 65 Mg/Ml Vial IV 60 mg (units unknown) (unknown) (unknown) (no date) (unknown) (unknown) Plan (units unknown) (unknown) (unknown) (no date) (unknown) (unknown) Plt Count 155 (units unknown) (unknown) (unknown) (no date) (unknown) (unknown) Potassium 3.8 3.4 (units unknown) (unknown) (unknown) (no date) (unknown) (unknown) Precedex IV 1 mcg/kg/hr (units unknown) (unknown) (unknown) (no date) (unknown) (unknown) Protocol (units unknown) (unknown) (unknown) (no date) (unknown) (unknown) Provider: Riki Clay MD (units unknown) (unknown) (unknown) (no date) (unknown) (unknown) Pulse Oximetry 94 (units unknown) (unknown) (unknown) (no date) (unknown) (unknown) Pulse Oximetry 95 98 (units unknown) (unknown) (unknown) (no date) (unknown) (unknown) Pulse Oximetry 98 98 (units unknown) (unknown) (unknown) (no date) (unknown) (unknown) Pulse Oximetry 98 (units unknown) (unknown) (unknown) (no date) (unknown) (unknown) Pulse Oximetry 99 100 (units unknown) (unknown) (unknown) (no date) (unknown) (unknown) Pulse Oximetry 99 98 (units unknown) (unknown) (unknown) (no date) (unknown) (unknown) Pulse Oximetry 99 (units unknown) (unknown) (unknown) (no date) (unknown) (unknown) Pulse Rate 45 L (units unknown) (unknown) (unknown) (no date) (unknown) (unknown) Pulse Rate 46 L 46 L (units unknown) (unknown) (unknown) (no date) (unknown) (unknown) Pulse Rate 47 L 48 L (units unknown) (unknown) (unknown) (no date) (unknown) (unknown) Pulse Rate 47 L (units unknown) (unknown) (unknown) (no date) (unknown) (unknown) Pulse Rate 48 L (units unknown) (unknown) (unknown) (no date) (unknown) (unknown) Pulse Rate 49 L 47 L (units unknown) (unknown) (unknown) (no date) (unknown) (unknown) Pulse Rate 49 L 49 L (units unknown) (unknown) (unknown) (no date) (unknown) (unknown) Pulse Rate 50 L 50 L (units unknown) (unknown) (unknown) (no date) (unknown) (unknown) Pyridoxine 100 Mg/Ml Vial IV 100 mg (units unknown) (unknown) (unknown) (no date) (unknown) (unknown) Pyridoxine HCl 100 m g 08/01/22 09:00 08/02/22 09:55 (units unknown) (unknown) (unknown) (no date) (unknown) (unknown) Q6HR SANDY (units unknown) (unknown) (unknown) (no date) (unknown) (unknown) RBC 3.71 L (units unknown) (unknown) (unknown) (no date) (unknown) (unknown) RBC Morphology Not Reportable (units unknown) (unknown) (unknown) (no date) (unknown) (unknown) RDW 20.3 H (units unknown) (unknown) (unknown) (no date) (unknown) (unknown) Recent events: Patient's DT's improving. She was on Dex at 1 mcg/kg/hr this (units unknown) (unknown) (unknown) (no date) (unknown) (unknown) Respiratory Rate 16 15 (units unknown) (unknown) (unknown) (no date) (unknown) (unknown) Respiratory Rate 16 (units unknown) (unknown) (unknown) (no date) (unknown) (unknown) Respiratory Rate 17 16 (units unknown) (unknown) (unknown) (no date) (unknown) (unknown) Respiratory Rate 18 22 (units unknown) (unknown) (unknown) (no date) (unknown) (unknown) Respiratory Rate 19 19 (units unknown) (unknown) (unknown) (no date) (unknown) (unknown) Respiratory Rate 19 (units unknown) (unknown) (unknown) (no date) (unknown) (unknown) Respiratory Rate 20 17 (units unknown) (unknown) (unknown) (no date) (unknown) (unknown) Signed By: (units unknown) (unknown) (unknown) (no date) (unknown) (unknown) Sodium 134 L (units unknown) (unknown) (unknown) (no date) (unknown) (unknown) Subjective (units unknown) (unknown) (unknown) (no date) (unknown) (unknown) TITRATE SANDY 13.494 mls/hr (units unknown) (unknown) (unknown) (no date) (unknown) (unknown) Teleintensivist Progress Note (units unknown) (unknown) (unknown) (no date) (unknown) (unknown) Temperature 97.7 F (units unknown) (unknown) (unknown) (no date) (unknown) (unknown) Temperature 98.7 F (units unknown) (unknown) (unknown) (no date) (unknown) (unknown) Temperature (units unknown) (unknown) (unknown) (no date) (unknown) (unknown) Thiamine HCl 100 mg/ Sodium 101 mls @ 404 mls/hr 08/01/22 09:00 08/02/22 (units unknown) (unknown) (unknown) (no date) (unknown) (unknown) Trade Name Edel PRN Reason Stop Dose Admin (units unknown) (unknown) (unknown) (no date) (unknown) (unknown) Visit Medications (administered) (units unknown) (unknown) (unknown) (no date) (unknown) (unknown) Vital Signs (units unknown) (unknown) (unknown) (no date) (unknown) (unknown) WBC 4.9 (units unknown) (unknown) (unknown) (no date) (unknown) (unknown) [Embedded Image Not Available] (units unknown) (unknown) (unknown) (no date) (unknown) (unknown) [Rx Confirmed 08/01/22] (units unknown) (unknown) (unknown) (no date) (unknown) (unknown) dexmedeTOMIDine in 0.9 % NaCL 400 mcg in 100 mls @ 26.989 mls/hr 08/01/22 (units unknown) (unknown) (unknown) (no date) (unknown) (unknown) fluoxetine 10 mg capsule 10 mg PO DAILY 07/13/22 [History Confirmed 08/01/22] (units unknown) (unknown) (unknown) (no date) (unknown) (unknown) hydroxyzine HCl 50 m g tablet 50 mg PO DAILY 07/13/22 [History Confirmed (units unknown) (unknown) (unknown) (no date) (unknown) (unknown) morning but then her IV was lost so she is currently off Dex. (units unknown) (unknown) (unknown) (no date) (unknown) (unknown) multivitamin with folic acid 400 mcg tablet (Tab-A-Kael) 1 tab PO DAILY #30 tabs (units unknown) (unknown) (unknown) (no date) (unknown) (unknown) pantoprazole 40 mg tablet,delayed release 40 mg PO 0700 #30 tabs 07/14/22 [Rx (units unknown) (unknown) (unknown) (no date) (unknown) (unknown) quetiapine 300 mg tablet 300 mg PO DAILY 07/13/22 [History Confirmed 08/01/22] (units unknown) (unknown) (unknown) (no date) (unknown) (unknown) thiamine mononitrate (vit B1) 100 mg tablet 100 mg PO DAILY #30 tabs 07/14/22 (units unknown) (unknown) (unknown) (no date) (unknown) (unknown) withrawal and DTS. PT. given ativan, phenobarb, and placed on precedex drip. (units unknown) (unknown) Result panel [id number] (unknown) (no date) (unknown) (unknown) (no value) (units unknown) (unknown) (unknown) (no date) (unknown) (unknown) (past 8 hours): (units unknown) (unknown) (unknown) (no date) (unknown) (unknown) -[place] (units unknown) (unknown) (unknown) (no date) (unknown) (unknown) [id number] (units unknown) (unknown) (unknown) (no date) (unknown) (unknown) 01:00 08/03/22 (units unknown) (unknown) (unknown) (no date) (unknown) (unknown) 01:00 (units unknown) (unknown) (unknown) (no date) (unknown) (unknown) 01:30 08/03/22 (units unknown) (unknown) (unknown) (no date) (unknown) (unknown) 02:00 08/03/22 (units unknown) (unknown) (unknown) (no date) (unknown) (unknown) 02:00 (units unknown) (unknown) (unknown) (no date) (unknown) (unknown) 02:14 08/03/22 (units unknown) (unknown) (unknown) (no date) (unknown) (unknown) 02:30 08/03/22 (units unknown) (unknown) (unknown) (no date) (unknown) (unknown) 07/14/22 [Rx Confirmed 08/01/22] (units unknown) (unknown) (unknown) (no date) (unknown) (unknown) 08/01/22] (units unknown) (unknown) (unknown) (no date) (unknown) (unknown) 08/02/22 08/03/22 08/03/22 (units unknown) (unknown) (unknown) (no date) (unknown) (unknown) 08/03/22 07:50 (units unknown) (unknown) (unknown) (no date) (unknown) (unknown) 08/03/22 (units unknown) (unknown) (unknown) (no date) (unknown) (unknown) 03:00 08/03/22 (units unknown) (unknown) (unknown) (no date) (unknown) (unknown) 03:00 (units unknown) (unknown) (unknown) (no date) (unknown) (unknown) 03:30 (units unknown) (unknown) (unknown) (no date) (unknown) (unknown) 03:44 08/03/22 (units unknown) (unknown) (unknown) (no date) (unknown) (unknown) 04:00 08/03/22 (units unknown) (unknown) (unknown) (no date) (unknown) (unknown) 04:30 (units unknown) (unknown) (unknown) (no date) (unknown) (unknown) 05:00 08/03/22 (units unknown) (unknown) (unknown) (no date) (unknown) (unknown) 05:30 (units unknown) (unknown) (unknown) (no date) (unknown) (unknown) 06:00 08/03/22 (units unknown) (unknown) (unknown) (no date) (unknown) (unknown) 06:30 (units unknown) (unknown) (unknown) (no date) (unknown) (unknown) 07:00 08/03/22 (units unknown) (unknown) (unknown) (no date) (unknown) (unknown) 07:00 (units unknown) (unknown) (unknown) (no date) (unknown) (unknown) 08:15 08/03/22 02:15 (units unknown) (unknown) (unknown) (no date) (unknown) (unknown) 19:23 (units unknown) (unknown) (unknown) (no date) (unknown) (unknown) 2 MCG/KG/HR (units unknown) (unknown) (unknown) (no date) (unknown) (unknown) 21:20 07:50 07:50 (units unknown) (unknown) (unknown) (no date) (unknown) (unknown) 22:23 (units unknown) (unknown) (unknown) (no date) (unknown) (unknown) Administration (units unknown) (unknown) (unknown) (no date) (unknown) (unknown) Age/Sex: 31 / F (units unknown) (unknown) (unknown) (no date) (unknown) (unknown) Alcohol Withdrawal (units unknown) (unknown) (unknown) (no date) (unknown) (unknown) Anisocytosis 1+ H (units unknown) (unknown) (unknown) (no date) (unknown) (unknown) Assessment + Plan narrative: (units unknown) (unknown) (unknown) (no date) (unknown) (unknown) Assessment + Plan (units unknown) (unknown) (unknown) (no date) (unknown) (unknown) Assessmet (units unknown) (unknown) (unknown) (no date) (unknown) (unknown) BID SANDY Administration (units unknown) (unknown) (unknown) (no date) (unknown) (unknown) BUN 2 L (units unknown) (unknown) (unknown) (no date) (unknown) (unknown) BUN/Creatinine Ratio 3.6 L (units unknown) (unknown) (unknown) (no date) (unknown) (unknown) Baso # (Auto) 0 (units unknown) (unknown) (unknown) (no date) (unknown) (unknown) Baso % (Auto) 0.4 (units unknown) (unknown) (unknown) (no date) (unknown) (unknown) Blood Pressure 122/76 (units unknown) (unknown) (unknown) (no date) (unknown) (unknown) Blood Pressure 126/83 (units unknown) (unknown) (unknown) (no date) (unknown) (unknown) Blood Pressure 126/88 (units unknown) (unknown) (unknown) (no date) (unknown) (unknown) Blood Pressure 128/80 (units unknown) (unknown) (unknown) (no date) (unknown) (unknown) Blood Pressure 128/83 (units unknown) (unknown) (unknown) (no date) (unknown) (unknown) Blood Pressure 130/81 (units unknown) (unknown) (unknown) (no date) (unknown) (unknown) Blood Pressure 138/77 (units unknown) (unknown) (unknown) (no date) (unknown) (unknown) Blood Pressure (units unknown) (unknown) (unknown) (no date) (unknown) (unknown) CIWAPRN PRN Administration (units unknown) (unknown) (unknown) (no date) (unknown) (unknown) CONT SANDY Administration (units unknown) (unknown) (unknown) (no date) (unknown) (unknown) Calcium 8.1 L (units unknown) (unknown) (unknown) (no date) (unknown) (unknown) Carbon Dioxide 28 (units unknown) (unknown) (unknown) (no date) (unknown) (unknown) Chlordiazepoxide 25 Mg Capsule PO Not Given (units unknown) (unknown) (unknown) (no date) (unknown) (unknown) Chlordiazepoxide HCl 50 mg 08/01/22 12:00 08/03/22 06:38 (units unknown) (unknown) (unknown) (no date) (unknown) (unknown) Chloride 101 (units unknown) (unknown) (unknown) (no date) (unknown) (unknown) Chloride IV Infused (units unknown) (unknown) (unknown) (no date) (unknown) (unknown) Confirmed 08/01/22] (units unknown) (unknown) (unknown) (no date) (unknown) (unknown) Consent obtained for tele-bioinformatics technician care: Yes (units unknown) (unknown) (unknown) (no date) (unknown) (unknown) Creatinine 0.55 (units unknown) (unknown) (unknown) (no date) (unknown) (unknown) Current Medications (units unknown) (unknown) (unknown) (no date) (unknown) (unknown) DAILY SANDY Administration (units unknown) (unknown) (unknown) (no date) (unknown) (unknown) DAILY SANDY Infusion (units unknown) (unknown) (unknown) (no date) (unknown) (unknown) DAILY SANDY (units unknown) (unknown) (unknown) (no date) (unknown) (unknown) : 1990 Acct:[id number] (units unknown) (unknown) (unknown) (no date) (unknown) (unknown) Date of Service: 08/01/22 (units unknown) (unknown) (unknown) (no date) (unknown) (unknown) Dextrose 5%-Lactated Ringers IV 84 mls/hr (units unknown) (unknown) (unknown) (no date) (unknown) (unknown) Dextrose/Lactated Ringer's 1,000 mls @ 84 mls/hr 08/01/22 20:15 08/02/22 (units unknown) (unknown) (unknown) (no date) (unknown) (unknown) ETOH withdrawal/DTs (units unknown) (unknown) (unknown) (no date) (unknown) (unknown) Enoxaparin 40 Mg/0.4 Ml Syringe SUBCUT 40 mg (units unknown) (unknown) (unknown) (no date) (unknown) (unknown) Enoxaparin Sodium 40 mg 08/02/22 09:45 08/02/22 10:14 (units unknown) (unknown) (unknown) (no date) (unknown) (unknown) Eos # (Auto) 100 (units unknown) (unknown) (unknown) (no date) (unknown) (unknown) Eos % (Auto) 2.5 (units unknown) (unknown) (unknown) (no date) (unknown) (unknown) Estimated GFR > 60 (units unknown) (unknown) (unknown) (no date) (unknown) (unknown) Exam Narrative: (units unknown) (unknown) (unknown) (no date) (unknown) (unknown) Exam (units unknown) (unknown) (unknown) (no date) (unknown) (unknown) Fluoxetine 10 Mg Capsule PO Not Given (units unknown) (unknown) (unknown) (no date) (unknown) (unknown) Fluoxetine HCl 10 mg 08/01/22 09:00 08/02/22 08:11 (units unknown) (unknown) (unknown) (no date) (unknown) (unknown) Folic Acid 1 Mg Tablet PO Not Given (units unknown) (unknown) (unknown) (no date) (unknown) (unknown) Folic Acid 1 mg 08/01/22 09:00 08/02/22 08:11 (units unknown) (unknown) (unknown) (no date) (unknown) (unknown) Generic Name Dose Route Start Last Admin (units unknown) (unknown) (unknown) (no date) (unknown) (unknown) Glucose 131 H (units unknown) (unknown) (unknown) (no date) (unknown) (unknown) Hct 29.7 L (units unknown) (unknown) (unknown) (no date) (unknown) (unknown) Hgb 10.0 L (units unknown) (unknown) (unknown) (no date) (unknown) (unknown) Home Medications (units unknown) (unknown) (unknown) (no date) (unknown) (unknown) Hydroxyzine Pamoate 25 Mg Capsule PO Not Given (units unknown) (unknown) (unknown) (no date) (unknown) (unknown) Hydroxyzine Pamoate 50 mg 08/01/22 09:00 08/02/22 08:11 (units unknown) (unknown) (unknown) (no date) (unknown) (unknown) Interval history: (units unknown) (unknown) (unknown) (no date) (unknown) (unknown) [address] [address] (units unknown) (unknown) (unknown) (no date) (unknown) (unknown) Laboratory Results - last 24 hr (units unknown) (unknown) (unknown) (no date) (unknown) (unknown) Labs (units unknown) (unknown) (unknown) (no date) (unknown) (unknown) Labs: (units unknown) (unknown) (unknown) (no date) (unknown) (unknown) Lorazepam 0 mg 08/01/22 08:00 08/02/22 12:31 (units unknown) (unknown) (unknown) (no date) (unknown) (unknown) Lorazepam 2 Mg/Ml In j IV 2 mg (units unknown) (unknown) (unknown) (no date) (unknown) (unknown) Lymph # (Auto) 1300 (units unknown) (unknown) (unknown) (no date) (unknown) (unknown) Lymph % (Auto) 26.4 (units unknown) (unknown) (unknown) (no date) (unknown) (unknown) MCH 27.0 (units unknown) (unknown) (unknown) (no date) (unknown) (unknown) MCHC 33.7 (units unknown) (unknown) (unknown) (no date) (unknown) (unknown) MCV 80.1 (units unknown) (unknown) (unknown) (no date) (unknown) (unknown) Medications: (units unknown) (unknown) (unknown) (no date) (unknown) (unknown) [place] # (Auto) 400 (units unknown) (unknown) (unknown) (no date) (unknown) (unknown) [place] % (Auto) 7.7 (units unknown) (unknown) (unknown) (no date) (unknown) (unknown) Multivitamin 1 Table t PO Not Given (units unknown) (unknown) (unknown) (no date) (unknown) (unknown) Multivitamins 1 tab 08/01/22 09:00 08/02/22 08:11 (units unknown) (unknown) (unknown) (no date) (unknown) (unknown) Narrative (units unknown) (unknown) (unknown) (no date) (unknown) (unknown) Neut # (Auto) 3100 (units unknown) (unknown) (unknown) (no date) (unknown) (unknown) Neut % (Auto) 63.0 (units unknown) (unknown) (unknown) (no date) (unknown) (unknown) Objective (units unknown) (unknown) (unknown) (no date) (unknown) (unknown) Oxygen Delivery Method Room Air (units unknown) (unknown) (unknown) (no date) (unknown) (unknown) Oxygen Delivery Method (units unknown) (unknown) (unknown) (no date) (unknown) (unknown) Oxygen Flow Rate 0 (units unknown) (unknown) (unknown) (no date) (unknown) (unknown) Pantoprazole 40 Mg Vial IV 40 mg (units unknown) (unknown) (unknown) (no date) (unknown) (unknown) Pantoprazole Sodium 40 mg 08/01/22 09:00 08/02/22 09:55 (units unknown) (unknown) (unknown) (no date) (unknown) (unknown) Patient Location: ICU (units unknown) (unknown) (unknown) (no date) (unknown) (unknown) Patient summary: 31 yo woman with PMH Of ETOH abuse admitted 08/01/22 for ETOH (units unknown) (unknown) (unknown) (no date) (unknown) (unknown) Patient: Sarah Connors MR#: M (units unknown) (unknown) (unknown) (no date) (unknown) (unknown) Patinet seen over [address] audio-visual system. She is alert, calm, and cooperative (units unknown) (unknown) (unknown) (no date) (unknown) (unknown) Phenobarbital 60 mg 08/01/22 09:00 08/02/22 21:29 (units unknown) (unknown) (unknown) (no date) (unknown) (unknown) Phenobarbital 65 Mg/Ml Vial IV 60 mg (units unknown) (unknown) (unknown) (no date) (unknown) (unknown) Plan (units unknown) (unknown) (unknown) (no date) (unknown) (unknown) Plt Count 155 (units unknown) (unknown) (unknown) (no date) (unknown) (unknown) Potassium 3.8 3.4 (units unknown) (unknown) (unknown) (no date) (unknown) (unknown) Precedex IV 1 mcg/kg/hr (units unknown) (unknown) (unknown) (no date) (unknown) (unknown) Protocol (units unknown) (unknown) (unknown) (no date) (unknown) (unknown) Provider: Riki Clay MD (units unknown) (unknown) (unknown) (no date) (unknown) (unknown) Pulse Oximetry 94 (units unknown) (unknown) (unknown) (no date) (unknown) (unknown) Pulse Oximetry 95 98 (units unknown) (unknown) (unknown) (no date) (unknown) (unknown) Pulse Oximetry 98 98 (units unknown) (unknown) (unknown) (no date) (unknown) (unknown) Pulse Oximetry 98 (units unknown) (unknown) (unknown) (no date) (unknown) (unknown) Pulse Oximetry 99 100 (units unknown) (unknown) (unknown) (no date) (unknown) (unknown) Pulse Oximetry 99 98 (units unknown) (unknown) (unknown) (no date) (unknown) (unknown) Pulse Oximetry 99 (units unknown) (unknown) (unknown) (no date) (unknown) (unknown) Pulse Rate 45 L (units unknown) (unknown) (unknown) (no date) (unknown) (unknown) Pulse Rate 46 L 46 L (units unknown) (unknown) (unknown) (no date) (unknown) (unknown) Pulse Rate 47 L 48 L (units unknown) (unknown) (unknown) (no date) (unknown) (unknown) Pulse Rate 47 L (units unknown) (unknown) (unknown) (no date) (unknown) (unknown) Pulse Rate 48 L (units unknown) (unknown) (unknown) (no date) (unknown) (unknown) Pulse Rate 49 L 47 L (units unknown) (unknown) (unknown) (no date) (unknown) (unknown) Pulse Rate 49 L 49 L (units unknown) (unknown) (unknown) (no date) (unknown) (unknown) Pulse Rate 50 L 50 L (units unknown) (unknown) (unknown) (no date) (unknown) (unknown) Pyridoxine 100 Mg/Ml Vial IV 100 mg (units unknown) (unknown) (unknown) (no date) (unknown) (unknown) Pyridoxine HCl 100 m g 08/01/22 09:00 08/02/22 09:55 (units unknown) (unknown) (unknown) (no date) (unknown) (unknown) Q6HR SANDY (units unknown) (unknown) (unknown) (no date) (unknown) (unknown) RBC 3.71 L (units unknown) (unknown) (unknown) (no date) (unknown) (unknown) RBC Morphology Not Reportable (units unknown) (unknown) (unknown) (no date) (unknown) (unknown) RDW 20.3 H (units unknown) (unknown) (unknown) (no date) (unknown) (unknown) Recent events: Patient's DT's improving. She was on Dex at 1 mcg/kg/hr this (units unknown) (unknown) (unknown) (no date) (unknown) (unknown) Respiratory Rate 16 15 (units unknown) (unknown) (unknown) (no date) (unknown) (unknown) Respiratory Rate 16 (units unknown) (unknown) (unknown) (no date) (unknown) (unknown) Respiratory Rate 17 16 (units unknown) (unknown) (unknown) (no date) (unknown) (unknown) Respiratory Rate 18 22 (units unknown) (unknown) (unknown) (no date) (unknown) (unknown) Respiratory Rate 19 19 (units unknown) (unknown) (unknown) (no date) (unknown) (unknown) Respiratory Rate 19 (units unknown) (unknown) (unknown) (no date) (unknown) (unknown) Respiratory Rate 20 17 (units unknown) (unknown) (unknown) (no date) (unknown) (unknown) Signed By: (units unknown) (unknown) (unknown) (no date) (unknown) (unknown) Sodium 134 L (units unknown) (unknown) (unknown) (no date) (unknown) (unknown) Subjective (units unknown) (unknown) (unknown) (no date) (unknown) (unknown) TITRATE SANDY 13.494 mls/hr (units unknown) (unknown) (unknown) (no date) (unknown) (unknown) Teleintensivist Progress Note (units unknown) (unknown) (unknown) (no date) (unknown) (unknown) Temperature 97.7 F (units unknown) (unknown) (unknown) (no date) (unknown) (unknown) Temperature 98.7 F (units unknown) (unknown) (unknown) (no date) (unknown) (unknown) Temperature (units unknown) (unknown) (unknown) (no date) (unknown) (unknown) Thiamine HCl 100 mg/ Sodium 101 mls @ 404 mls/hr 08/01/22 09:00 08/02/22 (units unknown) (unknown) (unknown) (no date) (unknown) (unknown) Trade Name Edel PRN Reason Stop Dose Admin (units unknown) (unknown) (unknown) (no date) (unknown) (unknown) Visit Medications (administered) (units unknown) (unknown) (unknown) (no date) (unknown) (unknown) Vital Signs (units unknown) (unknown) (unknown) (no date) (unknown) (unknown) WBC 4.9 (units unknown) (unknown) (unknown) (no date) (unknown) (unknown) [Embedded Image Not Available] (units unknown) (unknown) (unknown) (no date) (unknown) (unknown) [Rx Confirmed 08/01/22] (units unknown) (unknown) (unknown) (no date) (unknown) (unknown) dexmedeTOMIDine in 0.9 % NaCL 400 mcg in 100 mls @ 26.989 mls/hr 08/01/22 (units unknown) (unknown) (unknown) (no date) (unknown) (unknown) fluoxetine 10 mg capsule 10 mg PO DAILY 07/13/22 [History Confirmed 08/01/22] (units unknown) (unknown) (unknown) (no date) (unknown) (unknown) hydroxyzine HCl 50 m g tablet 50 mg PO DAILY 07/13/22 [History Confirmed (units unknown) (unknown) (unknown) (no date) (unknown) (unknown) morning but then her IV was lost so she is currently off Dex. (units unknown) (unknown) (unknown) (no date) (unknown) (unknown) multivitamin with folic acid 400 mcg tablet (Tab-A-Kael) 1 tab PO DAILY #30 tabs (units unknown) (unknown) (unknown) (no date) (unknown) (unknown) pantoprazole 40 mg tablet,delayed release 40 mg PO 0700 #30 tabs 07/14/22 [Rx (units unknown) (unknown) (unknown) (no date) (unknown) (unknown) quetiapine 300 mg tablet 300 mg PO DAILY 07/13/22 [History Confirmed 08/01/22] (units unknown) (unknown) (unknown) (no date) (unknown) (unknown) thiamine mononitrate (vit B1) 100 mg tablet 100 mg PO DAILY #30 tabs 07/14/22 (units unknown) (unknown) (unknown) (no date) (unknown) (unknown) withrawal and DTS. PT. given ativan, phenobarb, and placed on precedex drip. (units unknown) (unknown) Result panel [id number] (unknown) (no date) (unknown) (unknown) (no value) (units unknown) (unknown) (unknown) (no date) (unknown) (unknown) (past 8 hours): (units unknown) (unknown) (unknown) (no date) (unknown) (unknown) - ativan prn high CIWA score (units unknown) (unknown) (unknown) (no date) (unknown) (unknown) -Librium 50 mg Q6h (units unknown) (unknown) (unknown) (no date) (unknown) (unknown) -agree with stopping scheduled Phenobarb for now as DTs improved but if severe (units unknown) (unknown) (unknown) (no date) (unknown) (unknown) -restart Precedex drip as needed once IV access obtained (units unknown) (unknown) (unknown) (no date) (unknown) (unknown) -start Gabapentin (units unknown) (unknown) (unknown) (no date) (unknown) (unknown) -start PO diet given improved mental status (units unknown) (unknown) (unknown) (no date) (unknown) (unknown) [id number] (units unknown) (unknown) (unknown) (no date) (unknown) (unknown) 01:00 08/03/22 (units unknown) (unknown) (unknown) (no date) (unknown) (unknown) 01:00 (units unknown) (unknown) (unknown) (no date) (unknown) (unknown) 01:30 08/03/22 (units unknown) (unknown) (unknown) (no date) (unknown) (unknown) 02:00 08/03/22 (units unknown) (unknown) (unknown) (no date) (unknown) (unknown) 02:00 (units unknown) (unknown) (unknown) (no date) (unknown) (unknown) 02:14 08/03/22 (units unknown) (unknown) (unknown) (no date) (unknown) (unknown) 02:30 08/03/22 (units unknown) (unknown) (unknown) (no date) (unknown) (unknown) 07/14/22 [Rx Confirmed 08/01/22] (units unknown) (unknown) (unknown) (no date) (unknown) (unknown) 08/01/22] (units unknown) (unknown) (unknown) (no date) (unknown) (unknown) 08/02/22 08/03/22 08/03/22 (units unknown) (unknown) (unknown) (no date) (unknown) (unknown) 08/03/22 07:50 (units unknown) (unknown) (unknown) (no date) (unknown) (unknown) 08/03/22 (units unknown) (unknown) (unknown) (no date) (unknown) (unknown) 03:00 08/03/22 (units unknown) (unknown) (unknown) (no date) (unknown) (unknown) 03:00 (units unknown) (unknown) (unknown) (no date) (unknown) (unknown) 03:30 (units unknown) (unknown) (unknown) (no date) (unknown) (unknown) 03:44 08/03/22 (units unknown) (unknown) (unknown) (no date) (unknown) (unknown) 04:00 08/03/22 (units unknown) (unknown) (unknown) (no date) (unknown) (unknown) 04:30 (units unknown) (unknown) (unknown) (no date) (unknown) (unknown) 05:00 08/03/22 (units unknown) (unknown) (unknown) (no date) (unknown) (unknown) 05:30 (units unknown) (unknown) (unknown) (no date) (unknown) (unknown) 06:00 08/03/22 (units unknown) (unknown) (unknown) (no date) (unknown) (unknown) 06:30 (units unknown) (unknown) (unknown) (no date) (unknown) (unknown) 07:00 08/03/22 (units unknown) (unknown) (unknown) (no date) (unknown) (unknown) 07:00 (units unknown) (unknown) (unknown) (no date) (unknown) (unknown) 08:15 08/03/22 02:15 (units unknown) (unknown) (unknown) (no date) (unknown) (unknown) 19:23 (units unknown) (unknown) (unknown) (no date) (unknown) (unknown) 2 MCG/KG/HR (units unknown) (unknown) (unknown) (no date) (unknown) (unknown) 21:20 07:50 07:50 (units unknown) (unknown) (unknown) (no date) (unknown) (unknown) 22:23 (units unknown) (unknown) (unknown) (no date) (unknown) (unknown) Administration (units unknown) (unknown) (unknown) (no date) (unknown) (unknown) Age/Sex: 31 / F (units unknown) (unknown) (unknown) (no date) (unknown) (unknown) Alcohol Withdrawal (units unknown) (unknown) (unknown) (no date) (unknown) (unknown) Anisocytosis 1+ H (units unknown) (unknown) (unknown) (no date) (unknown) (unknown) Assessment + Plan narrative: (units unknown) (unknown) (unknown) (no date) (unknown) (unknown) Assessment + Plan (units unknown) (unknown) (unknown) (no date) (unknown) (unknown) Assessmet (units unknown) (unknown) (unknown) (no date) (unknown) (unknown) BID SANDY Administration (units unknown) (unknown) (unknown) (no date) (unknown) (unknown) BUN 2 L (units unknown) (unknown) (unknown) (no date) (unknown) (unknown) BUN/Creatinine Ratio 3.6 L (units unknown) (unknown) (unknown) (no date) (unknown) (unknown) Baso # (Auto) 0 (units unknown) (unknown) (unknown) (no date) (unknown) (unknown) Baso % (Auto) 0.4 (units unknown) (unknown) (unknown) (no date) (unknown) (unknown) Blood Pressure 122/76 (units unknown) (unknown) (unknown) (no date) (unknown) (unknown) Blood Pressure 126/83 (units unknown) (unknown) (unknown) (no date) (unknown) (unknown) Blood Pressure 126/88 (units unknown) (unknown) (unknown) (no date) (unknown) (unknown) Blood Pressure 128/80 (units unknown) (unknown) (unknown) (no date) (unknown) (unknown) Blood Pressure 128/83 (units unknown) (unknown) (unknown) (no date) (unknown) (unknown) Blood Pressure 130/81 (units unknown) (unknown) (unknown) (no date) (unknown) (unknown) Blood Pressure 138/77 (units unknown) (unknown) (unknown) (no date) (unknown) (unknown) Blood Pressure (units unknown) (unknown) (unknown) (no date) (unknown) (unknown) CIWAPRN PRN Administration (units unknown) (unknown) (unknown) (no date) (unknown) (unknown) CONT SANDY Administration (units unknown) (unknown) (unknown) (no date) (unknown) (unknown) Calcium 8.1 L (units unknown) (unknown) (unknown) (no date) (unknown) (unknown) Carbon Dioxide 28 (units unknown) (unknown) (unknown) (no date) (unknown) (unknown) Chlordiazepoxide 25 Mg Capsule PO Not Given (units unknown) (unknown) (unknown) (no date) (unknown) (unknown) Chlordiazepoxide HCl 50 mg 08/01/22 12:00 08/03/22 06:38 (units unknown) (unknown) (unknown) (no date) (unknown) (unknown) Chloride 101 (units unknown) (unknown) (unknown) (no date) (unknown) (unknown) Chloride IV Infused (units unknown) (unknown) (unknown) (no date) (unknown) (unknown) Confirmed 08/01/22] (units unknown) (unknown) (unknown) (no date) (unknown) (unknown) Consent obtained for tele-bioinformatics technician care: Yes (units unknown) (unknown) (unknown) (no date) (unknown) (unknown) Creatinine 0.55 (units unknown) (unknown) (unknown) (no date) (unknown) (unknown) Current Medications (units unknown) (unknown) (unknown) (no date) (unknown) (unknown) DAILY SANDY Administration (units unknown) (unknown) (unknown) (no date) (unknown) (unknown) DAILY SANDY Infusion (units unknown) (unknown) (unknown) (no date) (unknown) (unknown) DAILY SANDY (units unknown) (unknown) (unknown) (no date) (unknown) (unknown) : 1990 Acct:[id number] (units unknown) (unknown) (unknown) (no date) (unknown) (unknown) Date of Service: 08/01/22 (units unknown) (unknown) (unknown) (no date) (unknown) (unknown) Dextrose 5%-Lactated Ringers IV 84 mls/hr (units unknown) (unknown) (unknown) (no date) (unknown) (unknown) Dextrose/Lactated Ringer's 1,000 mls @ 84 mls/hr 08/01/22 20:15 08/02/22 (units unknown) (unknown) (unknown) (no date) (unknown) (unknown) ETOH withdrawal/DTs (units unknown) (unknown) (unknown) (no date) (unknown) (unknown) Enoxaparin 40 Mg/0.4 Ml Syringe SUBCUT 40 mg (units unknown) (unknown) (unknown) (no date) (unknown) (unknown) Enoxaparin Sodium 40 mg 08/02/22 09:45 08/02/22 10:14 (units unknown) (unknown) (unknown) (no date) (unknown) (unknown) Eos # (Auto) 100 (units unknown) (unknown) (unknown) (no date) (unknown) (unknown) Eos % (Auto) 2.5 (units unknown) (unknown) (unknown) (no date) (unknown) (unknown) Estimated GFR > 60 (units unknown) (unknown) (unknown) (no date) (unknown) (unknown) Exam Narrative: (units unknown) (unknown) (unknown) (no date) (unknown) (unknown) Exam (units unknown) (unknown) (unknown) (no date) (unknown) (unknown) Fluoxetine 10 Mg Capsule PO Not Given (units unknown) (unknown) (unknown) (no date) (unknown) (unknown) Fluoxetine HCl 10 mg 08/01/22 09:00 08/02/22 08:11 (units unknown) (unknown) (unknown) (no date) (unknown) (unknown) Folic Acid 1 Mg Tablet PO Not Given (units unknown) (unknown) (unknown) (no date) (unknown) (unknown) Folic Acid 1 mg 08/01/22 09:00 08/02/22 08:11 (units unknown) (unknown) (unknown) (no date) (unknown) (unknown) Generic Name Dose Route Start Last Admin (units unknown) (unknown) (unknown) (no date) (unknown) (unknown) Glucose 131 H (units unknown) (unknown) (unknown) (no date) (unknown) (unknown) Hct 29.7 L (units unknown) (unknown) (unknown) (no date) (unknown) (unknown) Hgb 10.0 L (units unknown) (unknown) (unknown) (no date) (unknown) (unknown) Home Medications (units unknown) (unknown) (unknown) (no date) (unknown) (unknown) Hydroxyzine Pamoate 25 Mg Capsule PO Not Given (units unknown) (unknown) (unknown) (no date) (unknown) (unknown) Hydroxyzine Pamoate 50 mg 08/01/22 09:00 08/02/22 08:11 (units unknown) (unknown) (unknown) (no date) (unknown) (unknown) Interval history: (units unknown) (unknown) (unknown) (no date) (unknown) (unknown) [address] [id number] (units unknown) (unknown) (unknown) (no date) (unknown) (unknown) Laboratory Results - last 24 hr (units unknown) (unknown) (unknown) (no date) (unknown) (unknown) Labs (units unknown) (unknown) (unknown) (no date) (unknown) (unknown) Labs: (units unknown) (unknown) (unknown) (no date) (unknown) (unknown) Lorazepam 0 mg 08/01/22 08:00 08/02/22 12:31 (units unknown) (unknown) (unknown) (no date) (unknown) (unknown) Lorazepam 2 Mg/Ml In j IV 2 mg (units unknown) (unknown) (unknown) (no date) (unknown) (unknown) Lymph # (Auto) 1300 (units unknown) (unknown) (unknown) (no date) (unknown) (unknown) Lymph % (Auto) 26.4 (units unknown) (unknown) (unknown) (no date) (unknown) (unknown) MCH 27.0 (units unknown) (unknown) (unknown) (no date) (unknown) (unknown) MCHC 33.7 (units unknown) (unknown) (unknown) (no date) (unknown) (unknown) MCV 80.1 (units unknown) (unknown) (unknown) (no date) (unknown) (unknown) Medications: (units unknown) (unknown) (unknown) (no date) (unknown) (unknown) [place] # (Auto) 400 (units unknown) (unknown) (unknown) (no date) (unknown) (unknown) [place] % (Auto) 7.7 (units unknown) (unknown) (unknown) (no date) (unknown) (unknown) Multivitamin 1 Table t PO Not Given (units unknown) (unknown) (unknown) (no date) (unknown) (unknown) Multivitamins 1 tab 08/01/22 09:00 08/02/22 08:11 (units unknown) (unknown) (unknown) (no date) (unknown) (unknown) Narrative (units unknown) (unknown) (unknown) (no date) (unknown) (unknown) Neut # (Auto) 3100 (units unknown) (unknown) (unknown) (no date) (unknown) (unknown) Neut % (Auto) 63.0 (units unknown) (unknown) (unknown) (no date) (unknown) (unknown) Objective (units unknown) (unknown) (unknown) (no date) (unknown) (unknown) Oxygen Delivery Method Room Air (units unknown) (unknown) (unknown) (no date) (unknown) (unknown) Oxygen Delivery Method (units unknown) (unknown) (unknown) (no date) (unknown) (unknown) Oxygen Flow Rate 0 (units unknown) (unknown) (unknown) (no date) (unknown) (unknown) PPx: (units unknown) (unknown) (unknown) (no date) (unknown) (unknown) Pantoprazole 40 Mg Vial IV 40 mg (units unknown) (unknown) (unknown) (no date) (unknown) (unknown) Pantoprazole Sodium 40 mg 08/01/22 09:00 08/02/22 09:55 (units unknown) (unknown) (unknown) (no date) (unknown) (unknown) Patient Location: ICU (units unknown) (unknown) (unknown) (no date) (unknown) (unknown) Patient summary: 31 yo woman with PMH Of ETOH abuse admitted 08/01/22 for ETOH (units unknown) (unknown) (unknown) (no date) (unknown) (unknown) Patient: Sarah Connors MR#: [id number] (units unknown) (unknown) (unknown) (no date) (unknown) (unknown) [place] seen over [address] audio-visual system. She is alert, calm, and cooperative (units unknown) (unknown) (unknown) (no date) (unknown) (unknown) Phenobarbital 60 mg 08/01/22 09:00 08/02/22 21:29 (units unknown) (unknown) (unknown) (no date) (unknown) (unknown) Phenobarbital 65 Mg/Ml Vial IV 60 mg (units unknown) (unknown) (unknown) (no date) (unknown) (unknown) Plan (units unknown) (unknown) (unknown) (no date) (unknown) (unknown) Plt Count 155 (units unknown) (unknown) (unknown) (no date) (unknown) (unknown) Potassium 3.8 3.4 (units unknown) (unknown) (unknown) (no date) (unknown) (unknown) Precedex IV 1 mcg/kg/hr (units unknown) (unknown) (unknown) (no date) (unknown) (unknown) Protocol (units unknown) (unknown) (unknown) (no date) (unknown) (unknown) Provider: Riki Clay MD (units unknown) (unknown) (unknown) (no date) (unknown) (unknown) Pulse Oximetry 94 (units unknown) (unknown) (unknown) (no date) (unknown) (unknown) Pulse Oximetry 95 98 (units unknown) (unknown) (unknown) (no date) (unknown) (unknown) Pulse Oximetry 98 98 (units unknown) (unknown) (unknown) (no date) (unknown) (unknown) Pulse Oximetry 98 (units unknown) (unknown) (unknown) (no date) (unknown) (unknown) Pulse Oximetry 99 100 (units unknown) (unknown) (unknown) (no date) (unknown) (unknown) Pulse Oximetry 99 98 (units unknown) (unknown) (unknown) (no date) (unknown) (unknown) Pulse Oximetry 99 (units unknown) (unknown) (unknown) (no date) (unknown) (unknown) Pulse Rate 45 L (units unknown) (unknown) (unknown) (no date) (unknown) (unknown) Pulse Rate 46 L 46 L (units unknown) (unknown) (unknown) (no date) (unknown) (unknown) Pulse Rate 47 L 48 L (units unknown) (unknown) (unknown) (no date) (unknown) (unknown) Pulse Rate 47 L (units unknown) (unknown) (unknown) (no date) (unknown) (unknown) Pulse Rate 48 L (units unknown) (unknown) (unknown) (no date) (unknown) (unknown) Pulse Rate 49 L 47 L (units unknown) (unknown) (unknown) (no date) (unknown) (unknown) Pulse Rate 49 L 49 L (units unknown) (unknown) (unknown) (no date) (unknown) (unknown) Pulse Rate 50 L 50 L (units unknown) (unknown) (unknown) (no date) (unknown) (unknown) Pyridoxine 100 Mg/Ml Vial IV 100 mg (units unknown) (unknown) (unknown) (no date) (unknown) (unknown) Pyridoxine HCl 100 m g 08/01/22 09:00 08/02/22 09:55 (units unknown) (unknown) (unknown) (no date) (unknown) (unknown) Q6HR SANDY (units unknown) (unknown) (unknown) (no date) (unknown) (unknown) RBC 3.71 L (units unknown) (unknown) (unknown) (no date) (unknown) (unknown) RBC Morphology Not Reportable (units unknown) (unknown) (unknown) (no date) (unknown) (unknown) RDW 20.3 H (units unknown) (unknown) (unknown) (no date) (unknown) (unknown) Recent events: Patient's DT's improving. She was on Dex at 1 mcg/kg/hr this (units unknown) (unknown) (unknown) (no date) (unknown) (unknown) Respiratory Rate 16 15 (units unknown) (unknown) (unknown) (no date) (unknown) (unknown) Respiratory Rate 16 (units unknown) (unknown) (unknown) (no date) (unknown) (unknown) Respiratory Rate 17 16 (units unknown) (unknown) (unknown) (no date) (unknown) (unknown) Respiratory Rate 18 22 (units unknown) (unknown) (unknown) (no date) (unknown) (unknown) Respiratory Rate 19 19 (units unknown) (unknown) (unknown) (no date) (unknown) (unknown) Respiratory Rate 19 (units unknown) (unknown) (unknown) (no date) (unknown) (unknown) Respiratory Rate 20 17 (units unknown) (unknown) (unknown) (no date) (unknown) (unknown) Signed By: (units unknown) (unknown) (unknown) (no date) (unknown) (unknown) Sodium 134 L (units unknown) (unknown) (unknown) (no date) (unknown) (unknown) Subjective (units unknown) (unknown) (unknown) (no date) (unknown) (unknown) TITRATE SANDY 13.494 mls/hr (units unknown) (unknown) (unknown) (no date) (unknown) (unknown) Teleintensivist Progress Note (units unknown) (unknown) (unknown) (no date) (unknown) (unknown) Temperature 97.7 F (units unknown) (unknown) (unknown) (no date) (unknown) (unknown) Temperature 98.7 F (units unknown) (unknown) (unknown) (no date) (unknown) (unknown) Temperature (units unknown) (unknown) (unknown) (no date) (unknown) (unknown) Thiamine HCl 100 mg/ Sodium 101 mls @ 404 mls/hr 08/01/22 09:00 08/02/22 (units unknown) (unknown) (unknown) (no date) (unknown) (unknown) Trade Name Freq PRN Reason Stop Dose Admin (units unknown) (unknown) (unknown) (no date) (unknown) (unknown) Visit Medications (administered) (units unknown) (unknown) (unknown) (no date) (unknown) (unknown) Vital Signs (units unknown) (unknown) (unknown) (no date) (unknown) (unknown) WBC 4.9 (units unknown) (unknown) (unknown) (no date) (unknown) (unknown) [Embedded Image Not Available] (units unknown) (unknown) (unknown) (no date) (unknown) (unknown) [Rx Confirmed 08/01/22] (units unknown) (unknown) (unknown) (no date) (unknown) (unknown) agitation develops later can consider additional doses of Phenobarn prn (units unknown) (unknown) (unknown) (no date) (unknown) (unknown) dexmedeTOMIDine in 0.9 % NaCL 400 mcg in 100 mls @ 26.989 mls/hr 08/01/22 (units unknown) (unknown) (unknown) (no date) (unknown) (unknown) fluoxetine 10 mg capsule 10 mg PO DAILY 07/13/22 [History Confirmed 08/01/22] (units unknown) (unknown) (unknown) (no date) (unknown) (unknown) hydroxyzine HCl 50 m g tablet 50 mg PO DAILY 07/13/22 [History Confirmed (units unknown) (unknown) (unknown) (no date) (unknown) (unknown) morning but then her IV was lost so she is currently off Dex. (units unknown) (unknown) (unknown) (no date) (unknown) (unknown) multivitamin with folic acid 400 mcg tablet (Tab-A-Kael) 1 tab PO DAILY #30 tabs (units unknown) (unknown) (unknown) (no date) (unknown) (unknown) pantoprazole 40 mg tablet,delayed release 40 mg PO 0700 #30 tabs 07/14/22 [Rx (units unknown) (unknown) (unknown) (no date) (unknown) (unknown) quetiapine 300 mg tablet 300 mg PO DAILY 07/13/22 [History Confirmed 08/01/22] (units unknown) (unknown) (unknown) (no date) (unknown) (unknown) thiamine mononitrate (vit B1) 100 mg tablet 100 mg PO DAILY #30 tabs 07/14/22 (units unknown) (unknown) (unknown) (no date) (unknown) (unknown) milagro and DTS. PT. given ativan, phenobarb, and placed on precedex drip. (units unknown) (unknown) Result panel 1553 (unknown) (no date) (unknown) (unknown) (no value) (units unknown) (unknown) (unknown) (no date) (unknown) (unknown) (past 8 hours): (units unknown) (unknown) (unknown) (no date) (unknown) (unknown) - ativan prn high CIWA score (units unknown) (unknown) (unknown) (no date) (unknown) (unknown) -Librium 50 mg Q6h (units unknown) (unknown) (unknown) (no date) (unknown) (unknown) -agree with stopping scheduled Phenobarb for now as DTs improved but if severe (units unknown) (unknown) (unknown) (no date) (unknown) (unknown) -restart Precedex drip as needed once IV access obtained (units unknown) (unknown) (unknown) (no date) (unknown) (unknown) -start Gabapentin (units unknown) (unknown) (unknown) (no date) (unknown) (unknown) -start PO diet given improved mental status. If Po intake is good (units unknown) (unknown) (unknown) (no date) (unknown) (unknown) -thiamine, folate, MVI (units unknown) (unknown) (unknown) (no date) (unknown) (unknown) [id number] (units unknown) (unknown) (unknown) (no date) (unknown) (unknown) 01:00 08/03/22 (units unknown) (unknown) (unknown) (no date) (unknown) (unknown) 01:00 (units unknown) (unknown) (unknown) (no date) (unknown) (unknown) 01:30 08/03/22 (units unknown) (unknown) (unknown) (no date) (unknown) (unknown) 02:00 08/03/22 (units unknown) (unknown) (unknown) (no date) (unknown) (unknown) 02:00 (units unknown) (unknown) (unknown) (no date) (unknown) (unknown) 02:14 08/03/22 (units unknown) (unknown) (unknown) (no date) (unknown) (unknown) 02:30 08/03/22 (units unknown) (unknown) (unknown) (no date) (unknown) (unknown) 07/14/22 [Rx Confirmed 08/01/22] (units unknown) (unknown) (unknown) (no date) (unknown) (unknown) 08/01/22] (units unknown) (unknown) (unknown) (no date) (unknown) (unknown) 08/02/22 08/03/22 08/03/22 (units unknown) (unknown) (unknown) (no date) (unknown) (unknown) 08/03/22 07:50 (units unknown) (unknown) (unknown) (no date) (unknown) (unknown) 08/03/22 (units unknown) (unknown) (unknown) (no date) (unknown) (unknown) 03:00 08/03/22 (units unknown) (unknown) (unknown) (no date) (unknown) (unknown) 03:00 (units unknown) (unknown) (unknown) (no date) (unknown) (unknown) 03:30 (units unknown) (unknown) (unknown) (no date) (unknown) (unknown) 03:44 08/03/22 (units unknown) (unknown) (unknown) (no date) (unknown) (unknown) 04:00 08/03/22 (units unknown) (unknown) (unknown) (no date) (unknown) (unknown) 04:30 (units unknown) (unknown) (unknown) (no date) (unknown) (unknown) 05:00 08/03/22 (units unknown) (unknown) (unknown) (no date) (unknown) (unknown) 05:30 (units unknown) (unknown) (unknown) (no date) (unknown) (unknown) 06:00 08/03/22 (units unknown) (unknown) (unknown) (no date) (unknown) (unknown) 06:30 (units unknown) (unknown) (unknown) (no date) (unknown) (unknown) 07:00 08/03/22 (units unknown) (unknown) (unknown) (no date) (unknown) (unknown) 07:00 (units unknown) (unknown) (unknown) (no date) (unknown) (unknown) 08:15 08/03/22 02:15 (units unknown) (unknown) (unknown) (no date) (unknown) (unknown) 19:23 (units unknown) (unknown) (unknown) (no date) (unknown) (unknown) 2 MCG/KG/HR (units unknown) (unknown) (unknown) (no date) (unknown) (unknown) 21:20 07:50 07:50 (units unknown) (unknown) (unknown) (no date) (unknown) (unknown) 22:23 (units unknown) (unknown) (unknown) (no date) (unknown) (unknown) Administration (units unknown) (unknown) (unknown) (no date) (unknown) (unknown) Age/Sex: 31 / F (units unknown) (unknown) (unknown) (no date) (unknown) (unknown) Alcohol Withdrawal (units unknown) (unknown) (unknown) (no date) (unknown) (unknown) Anisocytosis 1+ H (units unknown) (unknown) (unknown) (no date) (unknown) (unknown) Assessment + Plan narrative: (units unknown) (unknown) (unknown) (no date) (unknown) (unknown) Assessment + Plan (units unknown) (unknown) (unknown) (no date) (unknown) (unknown) Assessmet (units unknown) (unknown) (unknown) (no date) (unknown) (unknown) BID SANDY Administration (units unknown) (unknown) (unknown) (no date) (unknown) (unknown) BUN 2 L (units unknown) (unknown) (unknown) (no date) (unknown) (unknown) BUN/Creatinine Ratio 3.6 L (units unknown) (unknown) (unknown) (no date) (unknown) (unknown) Baso # (Auto) 0 (units unknown) (unknown) (unknown) (no date) (unknown) (unknown) Baso % (Auto) 0.4 (units unknown) (unknown) (unknown) (no date) (unknown) (unknown) Blood Pressure 122/76 (units unknown) (unknown) (unknown) (no date) (unknown) (unknown) Blood Pressure 126/83 (units unknown) (unknown) (unknown) (no date) (unknown) (unknown) Blood Pressure 126/88 (units unknown) (unknown) (unknown) (no date) (unknown) (unknown) Blood Pressure 128/80 (units unknown) (unknown) (unknown) (no date) (unknown) (unknown) Blood Pressure 128/83 (units unknown) (unknown) (unknown) (no date) (unknown) (unknown) Blood Pressure 130/81 (units unknown) (unknown) (unknown) (no date) (unknown) (unknown) Blood Pressure 138/77 (units unknown) (unknown) (unknown) (no date) (unknown) (unknown) Blood Pressure (units unknown) (unknown) (unknown) (no date) (unknown) (unknown) CIWAPRN PRN Administration (units unknown) (unknown) (unknown) (no date) (unknown) (unknown) CONT SANDY Administration (units unknown) (unknown) (unknown) (no date) (unknown) (unknown) Calcium 8.1 L (units unknown) (unknown) (unknown) (no date) (unknown) (unknown) Carbon Dioxide 28 (units unknown) (unknown) (unknown) (no date) (unknown) (unknown) Chlordiazepoxide 25 Mg Capsule PO Not Given (units unknown) (unknown) (unknown) (no date) (unknown) (unknown) Chlordiazepoxide HCl 50 mg 08/01/22 12:00 08/03/22 06:38 (units unknown) (unknown) (unknown) (no date) (unknown) (unknown) Chloride 101 (units unknown) (unknown) (unknown) (no date) (unknown) (unknown) Chloride IV Infused (units unknown) (unknown) (unknown) (no date) (unknown) (unknown) Confirmed 08/01/22] (units unknown) (unknown) (unknown) (no date) (unknown) (unknown) Consent obtained for tele-bioinformatics technician care: Yes (units unknown) (unknown) (unknown) (no date) (unknown) (unknown) Creatinine 0.55 (units unknown) (unknown) (unknown) (no date) (unknown) (unknown) Current Medications (units unknown) (unknown) (unknown) (no date) (unknown) (unknown) DAILY SANDY Administration (units unknown) (unknown) (unknown) (no date) (unknown) (unknown) DAILY SANDY Infusion (units unknown) (unknown) (unknown) (no date) (unknown) (unknown) DAILY SANDY (units unknown) (unknown) (unknown) (no date) (unknown) (unknown) : 1990 Acct:[id number] (units unknown) (unknown) (unknown) (no date) (unknown) (unknown) Date of Service: 08/01/22 (units unknown) (unknown) (unknown) (no date) (unknown) (unknown) Dextrose 5%-Lactated Ringers IV 84 mls/hr (units unknown) (unknown) (unknown) (no date) (unknown) (unknown) Dextrose/Lactated Ringer's 1,000 mls @ 84 mls/hr 08/01/22 20:15 08/02/22 (units unknown) (unknown) (unknown) (no date) (unknown) (unknown) ETOH abuse (units unknown) (unknown) (unknown) (no date) (unknown) (unknown) ETOH withdrawal/DTs (units unknown) (unknown) (unknown) (no date) (unknown) (unknown) Enoxaparin 40 Mg/0.4 Ml Syringe SUBCUT 40 mg (units unknown) (unknown) (unknown) (no date) (unknown) (unknown) Enoxaparin Sodium 40 mg 08/02/22 09:45 08/02/22 10:14 (units unknown) (unknown) (unknown) (no date) (unknown) (unknown) Eos # (Auto) 100 (units unknown) (unknown) (unknown) (no date) (unknown) (unknown) Eos % (Auto) 2.5 (units unknown) (unknown) (unknown) (no date) (unknown) (unknown) Estimated GFR > 60 (units unknown) (unknown) (unknown) (no date) (unknown) (unknown) Exam Narrative: (units unknown) (unknown) (unknown) (no date) (unknown) (unknown) Exam (units unknown) (unknown) (unknown) (no date) (unknown) (unknown) Fluoxetine 10 Mg Capsule PO Not Given (units unknown) (unknown) (unknown) (no date) (unknown) (unknown) Fluoxetine HCl 10 mg 08/01/22 09:00 08/02/22 08:11 (units unknown) (unknown) (unknown) (no date) (unknown) (unknown) Folic Acid 1 Mg Tablet PO Not Given (units unknown) (unknown) (unknown) (no date) (unknown) (unknown) Folic Acid 1 mg 08/01/22 09:00 08/02/22 08:11 (units unknown) (unknown) (unknown) (no date) (unknown) (unknown) Generic Name Dose Route Start Last Admin (units unknown) (unknown) (unknown) (no date) (unknown) (unknown) Glucose 131 H (units unknown) (unknown) (unknown) (no date) (unknown) (unknown) Hct 29.7 L (units unknown) (unknown) (unknown) (no date) (unknown) (unknown) Hgb 10.0 L (units unknown) (unknown) (unknown) (no date) (unknown) (unknown) Home Medications (units unknown) (unknown) (unknown) (no date) (unknown) (unknown) Hydroxyzine Pamoate 25 Mg Capsule PO Not Given (units unknown) (unknown) (unknown) (no date) (unknown) (unknown) Hydroxyzine Pamoate 50 mg 08/01/22 09:00 08/02/22 08:11 (units unknown) (unknown) (unknown) (no date) (unknown) (unknown) Interval history: (units unknown) (unknown) (unknown) (no date) (unknown) (unknown) [address] [id number] (units unknown) (unknown) (unknown) (no date) (unknown) (unknown) Laboratory Results - last 24 hr (units unknown) (unknown) (unknown) (no date) (unknown) (unknown) Labs (units unknown) (unknown) (unknown) (no date) (unknown) (unknown) Labs: (units unknown) (unknown) (unknown) (no date) (unknown) (unknown) Lorazepam 0 mg 08/01/22 08:00 08/02/22 12:31 (units unknown) (unknown) (unknown) (no date) (unknown) (unknown) Lorazepam 2 Mg/Ml In j IV 2 mg (units unknown) (unknown) (unknown) (no date) (unknown) (unknown) Lymph # (Auto) 1300 (units unknown) (unknown) (unknown) (no date) (unknown) (unknown) Lymph % (Auto) 26.4 (units unknown) (unknown) (unknown) (no date) (unknown) (unknown) MCH 27.0 (units unknown) (unknown) (unknown) (no date) (unknown) (unknown) MCHC 33.7 (units unknown) (unknown) (unknown) (no date) (unknown) (unknown) MCV 80.1 (units unknown) (unknown) (unknown) (no date) (unknown) (unknown) Medications: (units unknown) (unknown) (unknown) (no date) (unknown) (unknown) [place] # (Auto) 400 (units unknown) (unknown) (unknown) (no date) (unknown) (unknown) [place] % (Auto) 7.7 (units unknown) (unknown) (unknown) (no date) (unknown) (unknown) Multivitamin 1 Table t PO Not Given (units unknown) (unknown) (unknown) (no date) (unknown) (unknown) Multivitamins 1 tab 08/01/22 09:00 08/02/22 08:11 (units unknown) (unknown) (unknown) (no date) (unknown) (unknown) Narrative (units unknown) (unknown) (unknown) (no date) (unknown) (unknown) Neut # (Auto) 3100 (units unknown) (unknown) (unknown) (no date) (unknown) (unknown) Neut % (Auto) 63.0 (units unknown) (unknown) (unknown) (no date) (unknown) (unknown) Objective (units unknown) (unknown) (unknown) (no date) (unknown) (unknown) Oxygen Delivery Method Room Air (units unknown) (unknown) (unknown) (no date) (unknown) (unknown) Oxygen Delivery Method (units unknown) (unknown) (unknown) (no date) (unknown) (unknown) Oxygen Flow Rate 0 (units unknown) (unknown) (unknown) (no date) (unknown) (unknown) PPx: lovenox, protonix (units unknown) (unknown) (unknown) (no date) (unknown) (unknown) Pantoprazole 40 Mg Vial IV 40 mg (units unknown) (unknown) (unknown) (no date) (unknown) (unknown) Pantoprazole Sodium 40 mg 08/01/22 09:00 08/02/22 09:55 (units unknown) (unknown) (unknown) (no date) (unknown) (unknown) Patient Location: ICU (units unknown) (unknown) (unknown) (no date) (unknown) (unknown) Patient summary: 31 yo woman with PMH Of ETOH abuse admitted 08/01/22 for ETOH (units unknown) (unknown) (unknown) (no date) (unknown) (unknown) Patient: Sarah Connors MR#: [id number] (units unknown) (unknown) (unknown) (no date) (unknown) (unknown) Pat[place] seen over [address] way audio-visual system. She is alert, calm, and cooperative (units unknown) (unknown) (unknown) (no date) (unknown) (unknown) Phenobarbital 60 mg 08/01/22 09:00 08/02/22 21:29 (units unknown) (unknown) (unknown) (no date) (unknown) (unknown) Phenobarbital 65 Mg/Ml Vial IV 60 mg (units unknown) (unknown) (unknown) (no date) (unknown) (unknown) Plan (units unknown) (unknown) (unknown) (no date) (unknown) (unknown) Plt Count 155 (units unknown) (unknown) (unknown) (no date) (unknown) (unknown) Potassium 3.8 3.4 (units unknown) (unknown) (unknown) (no date) (unknown) (unknown) Precedex IV 1 mcg/kg/hr (units unknown) (unknown) (unknown) (no date) (unknown) (unknown) Protocol (units unknown) (unknown) (unknown) (no date) (unknown) (unknown) Provider: Riki Clay MD (units unknown) (unknown) (unknown) (no date) (unknown) (unknown) Pulse Oximetry 94 (units unknown) (unknown) (unknown) (no date) (unknown) (unknown) Pulse Oximetry 95 98 (units unknown) (unknown) (unknown) (no date) (unknown) (unknown) Pulse Oximetry 98 98 (units unknown) (unknown) (unknown) (no date) (unknown) (unknown) Pulse Oximetry 98 (units unknown) (unknown) (unknown) (no date) (unknown) (unknown) Pulse Oximetry 99 100 (units unknown) (unknown) (unknown) (no date) (unknown) (unknown) Pulse Oximetry 99 98 (units unknown) (unknown) (unknown) (no date) (unknown) (unknown) Pulse Oximetry 99 (units unknown) (unknown) (unknown) (no date) (unknown) (unknown) Pulse Rate 45 L (units unknown) (unknown) (unknown) (no date) (unknown) (unknown) Pulse Rate 46 L 46 L (units unknown) (unknown) (unknown) (no date) (unknown) (unknown) Pulse Rate 47 L 48 L (units unknown) (unknown) (unknown) (no date) (unknown) (unknown) Pulse Rate 47 L (units unknown) (unknown) (unknown) (no date) (unknown) (unknown) Pulse Rate 48 L (units unknown) (unknown) (unknown) (no date) (unknown) (unknown) Pulse Rate 49 L 47 L (units unknown) (unknown) (unknown) (no date) (unknown) (unknown) Pulse Rate 49 L 49 L (units unknown) (unknown) (unknown) (no date) (unknown) (unknown) Pulse Rate 50 L 50 L (units unknown) (unknown) (unknown) (no date) (unknown) (unknown) Pyridoxine 100 Mg/Ml Vial IV 100 mg (units unknown) (unknown) (unknown) (no date) (unknown) (unknown) Pyridoxine HCl 100 m g 08/01/22 09:00 08/02/22 09:55 (units unknown) (unknown) (unknown) (no date) (unknown) (unknown) Q6HR SANDY (units unknown) (unknown) (unknown) (no date) (unknown) (unknown) RBC 3.71 L (units unknown) (unknown) (unknown) (no date) (unknown) (unknown) RBC Morphology Not Reportable (units unknown) (unknown) (unknown) (no date) (unknown) (unknown) RDW 20.3 H (units unknown) (unknown) (unknown) (no date) (unknown) (unknown) Recent events: Patient's DT's improving. She was on Dex at 1 mcg/kg/hr this (units unknown) (unknown) (unknown) (no date) (unknown) (unknown) Respiratory Rate 16 15 (units unknown) (unknown) (unknown) (no date) (unknown) (unknown) Respiratory Rate 16 (units unknown) (unknown) (unknown) (no date) (unknown) (unknown) Respiratory Rate 17 16 (units unknown) (unknown) (unknown) (no date) (unknown) (unknown) Respiratory Rate 18 22 (units unknown) (unknown) (unknown) (no date) (unknown) (unknown) Respiratory Rate 19 19 (units unknown) (unknown) (unknown) (no date) (unknown) (unknown) Respiratory Rate 19 (units unknown) (unknown) (unknown) (no date) (unknown) (unknown) Respiratory Rate 20 17 (units unknown) (unknown) (unknown) (no date) (unknown) (unknown) Signed By: (units unknown) (unknown) (unknown) (no date) (unknown) (unknown) Sodium 134 L (units unknown) (unknown) (unknown) (no date) (unknown) (unknown) Subjective (units unknown) (unknown) (unknown) (no date) (unknown) (unknown) TITRATE SANDY 13.494 mls/hr (units unknown) (unknown) (unknown) (no date) (unknown) (unknown) Teleintensivist Progress Note (units unknown) (unknown) (unknown) (no date) (unknown) (unknown) Temperature 97.7 F (units unknown) (unknown) (unknown) (no date) (unknown) (unknown) Temperature 98.7 F (units unknown) (unknown) (unknown) (no date) (unknown) (unknown) Temperature (units unknown) (unknown) (unknown) (no date) (unknown) (unknown) Thiamine HCl 100 mg/ Sodium 101 mls @ 404 mls/hr 08/01/22 09:00 08/02/22 (units unknown) (unknown) (unknown) (no date) (unknown) (unknown) Trade Name [employer] PRN Reason Stop Dose Admin (units unknown) (unknown) (unknown) (no date) (unknown) (unknown) Visit Medications (administered) (units unknown) (unknown) (unknown) (no date) (unknown) (unknown) Vital Signs (units unknown) (unknown) (unknown) (no date) (unknown) (unknown) WBC 4.9 (units unknown) (unknown) (unknown) (no date) (unknown) (unknown) [Embedded Image Not Available] (units unknown) (unknown) (unknown) (no date) (unknown) (unknown) [Rx Confirmed 08/01/22] (units unknown) (unknown) (unknown) (no date) (unknown) (unknown) agitation develops later can consider additional doses of Phenobarn prn (units unknown) (unknown) (unknown) (no date) (unknown) (unknown) dexmedeTOMIDine in 0.9 % NaCL 400 mcg in 100 mls @ 26.989 mls/hr 08/01/22 (units unknown) (unknown) (unknown) (no date) (unknown) (unknown) fluoxetine 10 mg capsule 10 mg PO DAILY 07/13/22 [History Confirmed 08/01/22] (units unknown) (unknown) (unknown) (no date) (unknown) (unknown) hydroxyzine HCl 50 m g tablet 50 mg PO DAILY 07/13/22 [History Confirmed (units unknown) (unknown) (unknown) (no date) (unknown) (unknown) morning but then her IV was lost so she is currently off Dex. (units unknown) (unknown) (unknown) (no date) (unknown) (unknown) multivitamin with folic acid 400 mcg tablet (Tab-A-Kael) 1 tab PO DAILY #30 tabs (units unknown) (unknown) (unknown) (no date) (unknown) (unknown) pantoprazole 40 mg tablet,delayed release 40 mg PO 0700 #30 tabs 07/14/22 [Rx (units unknown) (unknown) (unknown) (no date) (unknown) (unknown) quetiapine 300 mg tablet 300 mg PO DAILY 07/13/22 [History Confirmed 08/01/22] (units unknown) (unknown) (unknown) (no date) (unknown) (unknown) thiamine mononitrate (vit B1) 100 mg tablet 100 mg PO DAILY #30 tabs 07/14/22 (units unknown) (unknown) (unknown) (no date) (unknown) (unknown) withrawal and DTS. PT. given ativan, phenobarb, and placed on precedex drip. (units unknown) (unknown) Result panel [id number] (unknown) (no date) (unknown) (unknown) (no value) (units unknown) (unknown) (unknown) (no date) (unknown) (unknown) (past 8 hours): (units unknown) (unknown) (unknown) (no date) (unknown) (unknown) - ativan prn high CIWA score (units unknown) (unknown) (unknown) (no date) (unknown) (unknown) -Librium 50 mg Q6h (units unknown) (unknown) (unknown) (no date) (unknown) (unknown) -agree with stopping scheduled Phenobarb for now as DTs improved but if severe (units unknown) (unknown) (unknown) (no date) (unknown) (unknown) -restart Precedex drip as needed once IV access obtained (units unknown) (unknown) (unknown) (no date) (unknown) (unknown) -start Gabapentin (units unknown) (unknown) (unknown) (no date) (unknown) (unknown) -start PO diet given improved mental status. If Po intake is good can stop (units unknown) (unknown) (unknown) (no date) (unknown) (unknown) -thiamine, folate, MVI (units unknown) (unknown) (unknown) (no date) (unknown) (unknown) [id number] (units unknown) (unknown) (unknown) (no date) (unknown) (unknown) 01:00 08/03/22 (units unknown) (unknown) (unknown) (no date) (unknown) (unknown) 01:00 (units unknown) (unknown) (unknown) (no date) (unknown) (unknown) 01:30 08/03/22 (units unknown) (unknown) (unknown) (no date) (unknown) (unknown) 02:00 08/03/22 (units unknown) (unknown) (unknown) (no date) (unknown) (unknown) 02:00 (units unknown) (unknown) (unknown) (no date) (unknown) (unknown) 02:14 08/03/22 (units unknown) (unknown) (unknown) (no date) (unknown) (unknown) 02:30 08/03/22 (units unknown) (unknown) (unknown) (no date) (unknown) (unknown) 07/14/22 [Rx Confirmed 08/01/22] (units unknown) (unknown) (unknown) (no date) (unknown) (unknown) 08/01/22] (units unknown) (unknown) (unknown) (no date) (unknown) (unknown) 08/02/22 08/03/22 08/03/22 (units unknown) (unknown) (unknown) (no date) (unknown) (unknown) 08/03/22 07:50 (units unknown) (unknown) (unknown) (no date) (unknown) (unknown) 08/03/22 (units unknown) (unknown) (unknown) (no date) (unknown) (unknown) 03:00 08/03/22 (units unknown) (unknown) (unknown) (no date) (unknown) (unknown) 03:00 (units unknown) (unknown) (unknown) (no date) (unknown) (unknown) 03:30 (units unknown) (unknown) (unknown) (no date) (unknown) (unknown) 03:44 03/24/23 (units unknown) (unknown) (unknown) (no date) (unknown) (unknown) 04:00 08/03/22 (units unknown) (unknown) (unknown) (no date) (unknown) (unknown) 04:30 (units unknown) (unknown) (unknown) (no date) (unknown) (unknown) 05:00 08/03/22 (units unknown) (unknown) (unknown) (no date) (unknown) (unknown) 05:30 (units unknown) (unknown) (unknown) (no date) (unknown) (unknown) 06:00 08/03/22 (units unknown) (unknown) (unknown) (no date) (unknown) (unknown) 06:30 (units unknown) (unknown) (unknown) (no date) (unknown) (unknown) 07:00 08/03/22 (units unknown) (unknown) (unknown) (no date) (unknown) (unknown) 07:00 (units unknown) (unknown) (unknown) (no date) (unknown) (unknown) 08:15 08/03/22 02:15 (units unknown) (unknown) (unknown) (no date) (unknown) (unknown) 19:23 (units unknown) (unknown) (unknown) (no date) (unknown) (unknown) 2 MCG/KG/HR (units unknown) (unknown) (unknown) (no date) (unknown) (unknown) 21:20 07:50 07:50 (units unknown) (unknown) (unknown) (no date) (unknown) (unknown) 22:23 (units unknown) (unknown) (unknown) (no date) (unknown) (unknown) Administration (units unknown) (unknown) (unknown) (no date) (unknown) (unknown) Age/Sex: 31 / F (units unknown) (unknown) (unknown) (no date) (unknown) (unknown) Alcohol Withdrawal (units unknown) (unknown) (unknown) (no date) (unknown) (unknown) Anisocytosis 1+ H (units unknown) (unknown) (unknown) (no date) (unknown) (unknown) Assessment + Plan narrative: (units unknown) (unknown) (unknown) (no date) (unknown) (unknown) Assessment + Plan (units unknown) (unknown) (unknown) (no date) (unknown) (unknown) Assessmet (units unknown) (unknown) (unknown) (no date) (unknown) (unknown) BID SANDY Administration (units unknown) (unknown) (unknown) (no date) (unknown) (unknown) BUN 2 L (units unknown) (unknown) (unknown) (no date) (unknown) (unknown) BUN/Creatinine Ratio 3.6 L (units unknown) (unknown) (unknown) (no date) (unknown) (unknown) Baso # (Auto) 0 (units unknown) (unknown) (unknown) (no date) (unknown) (unknown) Baso % (Auto) 0.4 (units unknown) (unknown) (unknown) (no date) (unknown) (unknown) Blood Pressure 122/76 (units unknown) (unknown) (unknown) (no date) (unknown) (unknown) Blood Pressure 126/83 (units unknown) (unknown) (unknown) (no date) (unknown) (unknown) Blood Pressure 126/88 (units unknown) (unknown) (unknown) (no date) (unknown) (unknown) Blood Pressure 128/80 (units unknown) (unknown) (unknown) (no date) (unknown) (unknown) Blood Pressure 128/83 (units unknown) (unknown) (unknown) (no date) (unknown) (unknown) Blood Pressure 130/81 (units unknown) (unknown) (unknown) (no date) (unknown) (unknown) Blood Pressure 138/77 (units unknown) (unknown) (unknown) (no date) (unknown) (unknown) Blood Pressure (units unknown) (unknown) (unknown) (no date) (unknown) (unknown) CIWAPRN PRN Administration (units unknown) (unknown) (unknown) (no date) (unknown) (unknown) CONT SANDY Administration (units unknown) (unknown) (unknown) (no date) (unknown) (unknown) Calcium 8.1 L (units unknown) (unknown) (unknown) (no date) (unknown) (unknown) Carbon Dioxide 28 (units unknown) (unknown) (unknown) (no date) (unknown) (unknown) Chlordiazepoxide 25 Mg Capsule PO Not Given (units unknown) (unknown) (unknown) (no date) (unknown) (unknown) Chlordiazepoxide HCl 50 mg 08/01/22 12:00 08/03/22 06:38 (units unknown) (unknown) (unknown) (no date) (unknown) (unknown) Chloride 101 (units unknown) (unknown) (unknown) (no date) (unknown) (unknown) Chloride IV Infused (units unknown) (unknown) (unknown) (no date) (unknown) (unknown) Confirmed 08/01/22] (units unknown) (unknown) (unknown) (no date) (unknown) (unknown) Consent obtained for tele-bioinformatics technician care: Yes (units unknown) (unknown) (unknown) (no date) (unknown) (unknown) Creatinine 0.55 (units unknown) (unknown) (unknown) (no date) (unknown) (unknown) Current Medications (units unknown) (unknown) (unknown) (no date) (unknown) (unknown) DAILY SANDY Administration (units unknown) (unknown) (unknown) (no date) (unknown) (unknown) DAILY SANDY Infusion (units unknown) (unknown) (unknown) (no date) (unknown) (unknown) DAILY SANDY (units unknown) (unknown) (unknown) (no date) (unknown) (unknown) : 1990 Acct:[id number] (units unknown) (unknown) (unknown) (no date) (unknown) (unknown) Date of Service: 08/01/22 (units unknown) (unknown) (unknown) (no date) (unknown) (unknown) Dextrose 5%-Lactated Ringers IV 84 mls/hr (units unknown) (unknown) (unknown) (no date) (unknown) (unknown) Dextrose/Lactated Ringer's 1,000 mls @ 84 mls/hr 08/01/22 20:15 08/02/22 (units unknown) (unknown) (unknown) (no date) (unknown) (unknown) ETOH abuse (units unknown) (unknown) (unknown) (no date) (unknown) (unknown) ETOH withdrawal/DTs (units unknown) (unknown) (unknown) (no date) (unknown) (unknown) Enoxaparin 40 Mg/0.4 Ml Syringe SUBCUT 40 mg (units unknown) (unknown) (unknown) (no date) (unknown) (unknown) Enoxaparin Sodium 40 mg 08/02/22 09:45 08/02/22 10:14 (units unknown) (unknown) (unknown) (no date) (unknown) (unknown) Eos # (Auto) 100 (units unknown) (unknown) (unknown) (no date) (unknown) (unknown) Eos % (Auto) 2.5 (units unknown) (unknown) (unknown) (no date) (unknown) (unknown) Estimated GFR > 60 (units unknown) (unknown) (unknown) (no date) (unknown) (unknown) Exam Narrative: (units unknown) (unknown) (unknown) (no date) (unknown) (unknown) Exam (units unknown) (unknown) (unknown) (no date) (unknown) (unknown) Fluoxetine 10 Mg Capsule PO Not Given (units unknown) (unknown) (unknown) (no date) (unknown) (unknown) Fluoxetine HCl 10 mg 08/01/22 09:00 08/02/22 08:11 (units unknown) (unknown) (unknown) (no date) (unknown) (unknown) Folic Acid 1 Mg Tablet PO Not Given (units unknown) (unknown) (unknown) (no date) (unknown) (unknown) Folic Acid 1 mg 08/01/22 09:00 08/02/22 08:11 (units unknown) (unknown) (unknown) (no date) (unknown) (unknown) Generic Name Dose Route Start Last Admin (units unknown) (unknown) (unknown) (no date) (unknown) (unknown) Glucose 131 H (units unknown) (unknown) (unknown) (no date) (unknown) (unknown) Hct 29.7 L (units unknown) (unknown) (unknown) (no date) (unknown) (unknown) Hgb 10.0 L (units unknown) (unknown) (unknown) (no date) (unknown) (unknown) Home Medications (units unknown) (unknown) (unknown) (no date) (unknown) (unknown) Hydroxyzine Pamoate 25 Mg Capsule PO Not Given (units unknown) (unknown) (unknown) (no date) (unknown) (unknown) Hydroxyzine Pamoate 50 mg 08/01/22 09:00 08/02/22 08:11 (units unknown) (unknown) (unknown) (no date) (unknown) (unknown) Interval history: (units unknown) (unknown) (unknown) (no date) (unknown) (unknown) [address] [address] (units unknown) (unknown) (unknown) (no date) (unknown) (unknown) Laboratory Results - last 24 hr (units unknown) (unknown) (unknown) (no date) (unknown) (unknown) Labs (units unknown) (unknown) (unknown) (no date) (unknown) (unknown) Labs: (units unknown) (unknown) (unknown) (no date) (unknown) (unknown) Lorazepam 0 mg 08/01/22 08:00 08/02/22 12:31 (units unknown) (unknown) (unknown) (no date) (unknown) (unknown) Lorazepam 2 Mg/Ml In j IV 2 mg (units unknown) (unknown) (unknown) (no date) (unknown) (unknown) Lymph # (Auto) 1300 (units unknown) (unknown) (unknown) (no date) (unknown) (unknown) Lymph % (Auto) 26.4 (units unknown) (unknown) (unknown) (no date) (unknown) (unknown) MCH 27.0 (units unknown) (unknown) (unknown) (no date) (unknown) (unknown) MCHC 33.7 (units unknown) (unknown) (unknown) (no date) (unknown) (unknown) MCV 80.1 (units unknown) (unknown) (unknown) (no date) (unknown) (unknown) Medications: (units unknown) (unknown) (unknown) (no date) (unknown) (unknown) [place] # (Auto) 400 (units unknown) (unknown) (unknown) (no date) (unknown) (unknown) [place] % (Auto) 7.7 (units unknown) (unknown) (unknown) (no date) (unknown) (unknown) Multivitamin 1 Table t PO Not Given (units unknown) (unknown) (unknown) (no date) (unknown) (unknown) Multivitamins 1 tab 08/01/22 09:00 08/02/22 08:11 (units unknown) (unknown) (unknown) (no date) (unknown) (unknown) Narrative (units unknown) (unknown) (unknown) (no date) (unknown) (unknown) Neut # (Auto) 3100 (units unknown) (unknown) (unknown) (no date) (unknown) (unknown) Neut % (Auto) 63.0 (units unknown) (unknown) (unknown) (no date) (unknown) (unknown) Objective (units unknown) (unknown) (unknown) (no date) (unknown) (unknown) Oxygen Delivery Method Room Air (units unknown) (unknown) (unknown) (no date) (unknown) (unknown) Oxygen Delivery Method (units unknown) (unknown) (unknown) (no date) (unknown) (unknown) Oxygen Flow Rate 0 (units unknown) (unknown) (unknown) (no date) (unknown) (unknown) PPx: lovenox, protonix (units unknown) (unknown) (unknown) (no date) (unknown) (unknown) Pantoprazole 40 Mg Vial IV 40 mg (units unknown) (unknown) (unknown) (no date) (unknown) (unknown) Pantoprazole Sodium 40 mg 08/01/22 09:00 08/02/22 09:55 (units unknown) (unknown) (unknown) (no date) (unknown) (unknown) Patient Location: ICU (units unknown) (unknown) (unknown) (no date) (unknown) (unknown) Patient summary: 31 yo woman with PMH Of ETOH abuse admitted 08/01/22 for ETOH (units unknown) (unknown) (unknown) (no date) (unknown) (unknown) Patient: Sarah Connors MR#: M (units unknown) (unknown) (unknown) (no date) (unknown) (unknown) Patinet seen over [address] audio-visual system. She is alert, calm, and cooperative (units unknown) (unknown) (unknown) (no date) (unknown) (unknown) Phenobarbital 60 mg 08/01/22 09:00 08/02/22 21:29 (units unknown) (unknown) (unknown) (no date) (unknown) (unknown) Phenobarbital 65 Mg/Ml Vial IV 60 mg (units unknown) (unknown) (unknown) (no date) (unknown) (unknown) Plan (units unknown) (unknown) (unknown) (no date) (unknown) (unknown) Plt Count 155 (units unknown) (unknown) (unknown) (no date) (unknown) (unknown) Potassium 3.8 3.4 (units unknown) (unknown) (unknown) (no date) (unknown) (unknown) Precedex IV 1 mcg/kg/hr (units unknown) (unknown) (unknown) (no date) (unknown) (unknown) Protocol (units unknown) (unknown) (unknown) (no date) (unknown) (unknown) Provider: Riki Clay MD (units unknown) (unknown) (unknown) (no date) (unknown) (unknown) Pulse Oximetry 94 (units unknown) (unknown) (unknown) (no date) (unknown) (unknown) Pulse Oximetry 95 98 (units unknown) (unknown) (unknown) (no date) (unknown) (unknown) Pulse Oximetry 98 98 (units unknown) (unknown) (unknown) (no date) (unknown) (unknown) Pulse Oximetry 98 (units unknown) (unknown) (unknown) (no date) (unknown) (unknown) Pulse Oximetry 99 100 (units unknown) (unknown) (unknown) (no date) (unknown) (unknown) Pulse Oximetry 99 98 (units unknown) (unknown) (unknown) (no date) (unknown) (unknown) Pulse Oximetry 99 (units unknown) (unknown) (unknown) (no date) (unknown) (unknown) Pulse Rate 45 L (units unknown) (unknown) (unknown) (no date) (unknown) (unknown) Pulse Rate 46 L 46 L (units unknown) (unknown) (unknown) (no date) (unknown) (unknown) Pulse Rate 47 L 48 L (units unknown) (unknown) (unknown) (no date) (unknown) (unknown) Pulse Rate 47 L (units unknown) (unknown) (unknown) (no date) (unknown) (unknown) Pulse Rate 48 L (units unknown) (unknown) (unknown) (no date) (unknown) (unknown) Pulse Rate 49 L 47 L (units unknown) (unknown) (unknown) (no date) (unknown) (unknown) Pulse Rate 49 L 49 L (units unknown) (unknown) (unknown) (no date) (unknown) (unknown) Pulse Rate 50 L 50 L (units unknown) (unknown) (unknown) (no date) (unknown) (unknown) Pyridoxine 100 Mg/Ml Vial IV 100 mg (units unknown) (unknown) (unknown) (no date) (unknown) (unknown) Pyridoxine HCl 100 m g 08/01/22 09:00 08/02/22 09:55 (units unknown) (unknown) (unknown) (no date) (unknown) (unknown) Q6HR SANDY (units unknown) (unknown) (unknown) (no date) (unknown) (unknown) RBC 3.71 L (units unknown) (unknown) (unknown) (no date) (unknown) (unknown) RBC Morphology Not Reportable (units unknown) (unknown) (unknown) (no date) (unknown) (unknown) RDW 20.3 H (units unknown) (unknown) (unknown) (no date) (unknown) (unknown) Recent events: Patient's DT's improving. She was on Dex at 1 mcg/kg/hr this (units unknown) (unknown) (unknown) (no date) (unknown) (unknown) Respiratory Rate 16 15 (units unknown) (unknown) (unknown) (no date) (unknown) (unknown) Respiratory Rate 16 (units unknown) (unknown) (unknown) (no date) (unknown) (unknown) Respiratory Rate 17 16 (units unknown) (unknown) (unknown) (no date) (unknown) (unknown) Respiratory Rate 18 22 (units unknown) (unknown) (unknown) (no date) (unknown) (unknown) Respiratory Rate 19 19 (units unknown) (unknown) (unknown) (no date) (unknown) (unknown) Respiratory Rate 19 (units unknown) (unknown) (unknown) (no date) (unknown) (unknown) Respiratory Rate 20 17 (units unknown) (unknown) (unknown) (no date) (unknown) (unknown) Signed By: (units unknown) (unknown) (unknown) (no date) (unknown) (unknown) Sodium 134 L (units unknown) (unknown) (unknown) (no date) (unknown) (unknown) Subjective (units unknown) (unknown) (unknown) (no date) (unknown) (unknown) TITRATE SANDY 13.494 mls/hr (units unknown) (unknown) (unknown) (no date) (unknown) (unknown) Teleintensivist Progress Note (units unknown) (unknown) (unknown) (no date) (unknown) (unknown) Temperature 97.7 F (units unknown) (unknown) (unknown) (no date) (unknown) (unknown) Temperature 98.7 F (units unknown) (unknown) (unknown) (no date) (unknown) (unknown) Temperature (units unknown) (unknown) (unknown) (no date) (unknown) (unknown) Thiamine HCl 100 mg/ Sodium 101 mls @ 404 mls/hr 08/01/22 09:00 08/02/22 (units unknown) (unknown) (unknown) (no date) (unknown) (unknown) Time Spent With Patient (units unknown) (unknown) (unknown) (no date) (unknown) (unknown) Time with patient: 3 0 to 49 minutes with 50% spent counseling/coordinati ng care (units unknown) (unknown) (unknown) (no date) (unknown) (unknown) Trade Name Freq PRN Reason Stop Dose Admin (units unknown) (unknown) (unknown) (no date) (unknown) (unknown) Visit Medications (administered) (units unknown) (unknown) (unknown) (no date) (unknown) (unknown) Vital Signs (units unknown) (unknown) (unknown) (no date) (unknown) (unknown) WBC 4.9 (units unknown) (unknown) (unknown) (no date) (unknown) (unknown) [Embedded Image Not Available] (units unknown) (unknown) (unknown) (no date) (unknown) (unknown) [Rx Confirmed 08/01/22] (units unknown) (unknown) (unknown) (no date) (unknown) (unknown) agitation develops later can consider additional doses of Phenobarn prn (units unknown) (unknown) (unknown) (no date) (unknown) (unknown) dexmedeTOMIDine in 0.9 % NaCL 400 mcg in 100 mls @ 26.989 mls/hr 08/01/22 (units unknown) (unknown) (unknown) (no date) (unknown) (unknown) fluoxetine 10 mg capsule 10 mg PO DAILY 07/13/22 [History Confirmed 08/01/22] (units unknown) (unknown) (unknown) (no date) (unknown) (unknown) hydroxyzine HCl 50 m g tablet 50 mg PO DAILY 07/13/22 [History Confirmed (units unknown) (unknown) (unknown) (no date) (unknown) (unknown) maintenance fluid D5LR (units unknown) (unknown) (unknown) (no date) (unknown) (unknown) morning but then her IV was lost so she is currently off Dex. (units unknown) (unknown) (unknown) (no date) (unknown) (unknown) multivitamin with folic acid 400 mcg tablet (Tab-A-Kael) 1 tab PO DAILY #30 tabs (units unknown) (unknown) (unknown) (no date) (unknown) (unknown) pantoprazole 40 mg tablet,delayed release 40 mg PO 0700 #30 tabs 07/14/22 [Rx (units unknown) (unknown) (unknown) (no date) (unknown) (unknown) quetiapine 300 mg tablet 300 mg PO DAILY 07/13/22 [History Confirmed 08/01/22] (units unknown) (unknown) (unknown) (no date) (unknown) (unknown) thiamine mononitrate (vit B1) 100 mg tablet 100 mg PO DAILY #30 tabs 07/14/22 (units unknown) (unknown) (unknown) (no date) (unknown) (unknown) withrawal and DTS. PT. given ativan, phenobarb, and placed on precedex drip. (units unknown) (unknown) Result panel [id number] (unknown) (no date) (unknown) (unknown) (no value) (units unknown) (unknown) (unknown) (no date) (unknown) (unknown) (past 8 hours): (units unknown) (unknown) (unknown) (no date) (unknown) (unknown) - ativan prn high CIWA score (units unknown) (unknown) (unknown) (no date) (unknown) (unknown) -Librium 50 mg Q6h (units unknown) (unknown) (unknown) (no date) (unknown) (unknown) -agree with stopping scheduled Phenobarb for now as DTs improved but if severe (units unknown) (unknown) (unknown) (no date) (unknown) (unknown) -restart Precedex drip as needed once IV access obtained (units unknown) (unknown) (unknown) (no date) (unknown) (unknown) -start Gabapentin (units unknown) (unknown) (unknown) (no date) (unknown) (unknown) -start PO diet given improved mental status. If Po intake is good can stop (units unknown) (unknown) (unknown) (no date) (unknown) (unknown) -thiamine, folate, MVI (units unknown) (unknown) (unknown) (no date) (unknown) (unknown) [id number] (units unknown) (unknown) (unknown) (no date) (unknown) (unknown) 01:00 08/03/22 (units unknown) (unknown) (unknown) (no date) (unknown) (unknown) 01:00 (units unknown) (unknown) (unknown) (no date) (unknown) (unknown) 01:30 08/03/22 (units unknown) (unknown) (unknown) (no date) (unknown) (unknown) 02:00 08/03/22 (units unknown) (unknown) (unknown) (no date) (unknown) (unknown) 02:00 (units unknown) (unknown) (unknown) (no date) (unknown) (unknown) 02:14 08/03/22 (units unknown) (unknown) (unknown) (no date) (unknown) (unknown) 02:30 08/03/22 (units unknown) (unknown) (unknown) (no date) (unknown) (unknown) 07/14/22 [Rx Confirmed 08/01/22] (units unknown) (unknown) (unknown) (no date) (unknown) (unknown) 08/01/22] (units unknown) (unknown) (unknown) (no date) (unknown) (unknown) 08/02/22 08/03/22 08/03/22 (units unknown) (unknown) (unknown) (no date) (unknown) (unknown) 08/03/22 07:50 (units unknown) (unknown) (unknown) (no date) (unknown) (unknown) 08/03/22 1112 (units unknown) (unknown) (unknown) (no date) (unknown) (unknown) 08/03/22 (units unknown) (unknown) (unknown) (no date) (unknown) (unknown) 03:00 08/03/22 (units unknown) (unknown) (unknown) (no date) (unknown) (unknown) 03:00 (units unknown) (unknown) (unknown) (no date) (unknown) (unknown) 03:30 (units unknown) (unknown) (unknown) (no date) (unknown) (unknown) 03:44 08/03/22 (units unknown) (unknown) (unknown) (no date) (unknown) (unknown) 04:00 08/03/22 (units unknown) (unknown) (unknown) (no date) (unknown) (unknown) 04:30 (units unknown) (unknown) (unknown) (no date) (unknown) (unknown) 05:00 08/03/22 (units unknown) (unknown) (unknown) (no date) (unknown) (unknown) 05:30 (units unknown) (unknown) (unknown) (no date) (unknown) (unknown) 06:00 08/03/22 (units unknown) (unknown) (unknown) (no date) (unknown) (unknown) 06:30 (units unknown) (unknown) (unknown) (no date) (unknown) (unknown) 07:00 08/03/22 (units unknown) (unknown) (unknown) (no date) (unknown) (unknown) 07:00 (units unknown) (unknown) (unknown) (no date) (unknown) (unknown) 08:15 08/03/22 02:15 (units unknown) (unknown) (unknown) (no date) (unknown) (unknown) 19:23 (units unknown) (unknown) (unknown) (no date) (unknown) (unknown) 2 MCG/KG/HR (units unknown) (unknown) (unknown) (no date) (unknown) (unknown) 21:20 07:50 07:50 (units unknown) (unknown) (unknown) (no date) (unknown) (unknown) 22:23 (units unknown) (unknown) (unknown) (no date) (unknown) (unknown) Administration (units unknown) (unknown) (unknown) (no date) (unknown) (unknown) Age/Sex: 31 / F (units unknown) (unknown) (unknown) (no date) (unknown) (unknown) Alcohol Withdrawal (units unknown) (unknown) (unknown) (no date) (unknown) (unknown) Anisocytosis 1+ H (units unknown) (unknown) (unknown) (no date) (unknown) (unknown) Assessment + Plan narrative: (units unknown) (unknown) (unknown) (no date) (unknown) (unknown) Assessment + Plan (units unknown) (unknown) (unknown) (no date) (unknown) (unknown) Assessmet (units unknown) (unknown) (unknown) (no date) (unknown) (unknown) BID SANDY Administration (units unknown) (unknown) (unknown) (no date) (unknown) (unknown) BUN 2 L (units unknown) (unknown) (unknown) (no date) (unknown) (unknown) BUN/Creatinine Ratio 3.6 L (units unknown) (unknown) (unknown) (no date) (unknown) (unknown) Baso # (Auto) 0 (units unknown) (unknown) (unknown) (no date) (unknown) (unknown) Baso % (Auto) 0.4 (units unknown) (unknown) (unknown) (no date) (unknown) (unknown) Blood Pressure 122/76 (units unknown) (unknown) (unknown) (no date) (unknown) (unknown) Blood Pressure 126/83 (units unknown) (unknown) (unknown) (no date) (unknown) (unknown) Blood Pressure 126/88 (units unknown) (unknown) (unknown) (no date) (unknown) (unknown) Blood Pressure 128/80 (units unknown) (unknown) (unknown) (no date) (unknown) (unknown) Blood Pressure 128/83 (units unknown) (unknown) (unknown) (no date) (unknown) (unknown) Blood Pressure 130/81 (units unknown) (unknown) (unknown) (no date) (unknown) (unknown) Blood Pressure 138/77 (units unknown) (unknown) (unknown) (no date) (unknown) (unknown) Blood Pressure (units unknown) (unknown) (unknown) (no date) (unknown) (unknown) CIWAPRN PRN Administration (units unknown) (unknown) (unknown) (no date) (unknown) (unknown) CONT SANDY Administration (units unknown) (unknown) (unknown) (no date) (unknown) (unknown) Calcium 8.1 L (units unknown) (unknown) (unknown) (no date) (unknown) (unknown) Carbon Dioxide 28 (units unknown) (unknown) (unknown) (no date) (unknown) (unknown) Chlordiazepoxide 25 Mg Capsule PO Not Given (units unknown) (unknown) (unknown) (no date) (unknown) (unknown) Chlordiazepoxide HCl 50 mg 08/01/22 12:00 08/03/22 06:38 (units unknown) (unknown) (unknown) (no date) (unknown) (unknown) Chloride 101 (units unknown) (unknown) (unknown) (no date) (unknown) (unknown) Chloride IV Infused (units unknown) (unknown) (unknown) (no date) (unknown) (unknown) Confirmed 08/01/22] (units unknown) (unknown) (unknown) (no date) (unknown) (unknown) Consent obtained for tele-bioinformatics technician care: Yes (units unknown) (unknown) (unknown) (no date) (unknown) (unknown) Creatinine 0.55 (units unknown) (unknown) (unknown) (no date) (unknown) (unknown) Current Medications (units unknown) (unknown) (unknown) (no date) (unknown) (unknown) DAILY SANDY Administration (units unknown) (unknown) (unknown) (no date) (unknown) (unknown) DAILY SANDY Infusion (units unknown) (unknown) (unknown) (no date) (unknown) (unknown) DAILY SANDY (units unknown) (unknown) (unknown) (no date) (unknown) (unknown) : 1990 Acct:[id number] (units unknown) (unknown) (unknown) (no date) (unknown) (unknown) Date of Service: 08/01/22 (units unknown) (unknown) (unknown) (no date) (unknown) (unknown) Dextrose 5%-Lactated Ringers IV 84 mls/hr (units unknown) (unknown) (unknown) (no date) (unknown) (unknown) Dextrose/Lactated Ringer's 1,000 mls @ 84 mls/hr 08/01/22 20:15 08/02/22 (units unknown) (unknown) (unknown) (no date) (unknown) (unknown) ETOH abuse (units unknown) (unknown) (unknown) (no date) (unknown) (unknown) ETOH withdrawal/DTs (units unknown) (unknown) (unknown) (no date) (unknown) (unknown) Enoxaparin 40 Mg/0.4 Ml Syringe SUBCUT 40 mg (units unknown) (unknown) (unknown) (no date) (unknown) (unknown) Enoxaparin Sodium 40 mg 08/02/22 09:45 08/02/22 10:14 (units unknown) (unknown) (unknown) (no date) (unknown) (unknown) Eos # (Auto) 100 (units unknown) (unknown) (unknown) (no date) (unknown) (unknown) Eos % (Auto) 2.5 (units unknown) (unknown) (unknown) (no date) (unknown) (unknown) Estimated GFR > 60 (units unknown) (unknown) (unknown) (no date) (unknown) (unknown) Exam Narrative: (units unknown) (unknown) (unknown) (no date) (unknown) (unknown) Exam (units unknown) (unknown) (unknown) (no date) (unknown) (unknown) Fluoxetine 10 Mg Capsule PO Not Given (units unknown) (unknown) (unknown) (no date) (unknown) (unknown) Fluoxetine HCl 10 mg 08/01/22 09:00 08/02/22 08:11 (units unknown) (unknown) (unknown) (no date) (unknown) (unknown) Folic Acid 1 Mg Tablet PO Not Given (units unknown) (unknown) (unknown) (no date) (unknown) (unknown) Folic Acid 1 mg 08/01/22 09:00 08/02/22 08:11 (units unknown) (unknown) (unknown) (no date) (unknown) (unknown) Generic Name Dose Route Start Last Admin (units unknown) (unknown) (unknown) (no date) (unknown) (unknown) Glucose 131 H (units unknown) (unknown) (unknown) (no date) (unknown) (unknown) Hct 29.7 L (units unknown) (unknown) (unknown) (no date) (unknown) (unknown) Hgb 10.0 L (units unknown) (unknown) (unknown) (no date) (unknown) (unknown) Home Medications (units unknown) (unknown) (unknown) (no date) (unknown) (unknown) Hydroxyzine Pamoate 25 Mg Capsule PO Not Given (units unknown) (unknown) (unknown) (no date) (unknown) (unknown) Hydroxyzine Pamoate 50 mg 08/01/22 09:00 08/02/22 08:11 (units unknown) (unknown) (unknown) (no date) (unknown) (unknown) IF [place]ER[place] ACTIVATED, patient seen via real-time interactive audiovisual (units unknown) (unknown) (unknown) (no date) (unknown) (unknown) Interval history: (units unknown) (unknown) (unknown) (no date) (unknown) (unknown) [address] [address] (units unknown) (unknown) (unknown) (no date) (unknown) (unknown) Laboratory Results - last 24 hr (units unknown) (unknown) (unknown) (no date) (unknown) (unknown) Labs (units unknown) (unknown) (unknown) (no date) (unknown) (unknown) Labs: (units unknown) (unknown) (unknown) (no date) (unknown) (unknown) Lorazepam 0 mg 08/01/22 08:00 08/02/22 12:31 (units unknown) (unknown) (unknown) (no date) (unknown) (unknown) Lorazepam 2 Mg/Ml In j IV 2 mg (units unknown) (unknown) (unknown) (no date) (unknown) (unknown) Lymph # (Auto) 1300 (units unknown) (unknown) (unknown) (no date) (unknown) (unknown) Lymph % (Auto) 26.4 (units unknown) (unknown) (unknown) (no date) (unknown) (unknown) MCH 27.0 (units unknown) (unknown) (unknown) (no date) (unknown) (unknown) MCHC 33.7 (units unknown) (unknown) (unknown) (no date) (unknown) (unknown) MCV 80.1 (units unknown) (unknown) (unknown) (no date) (unknown) (unknown) Medications: (units unknown) (unknown) (unknown) (no date) (unknown) (unknown) [place] # (Auto) 400 (units unknown) (unknown) (unknown) (no date) (unknown) (unknown) [place] % (Auto) 7.7 (units unknown) (unknown) (unknown) (no date) (unknown) (unknown) Multivitamin 1 Table t PO Not Given (units unknown) (unknown) (unknown) (no date) (unknown) (unknown) Multivitamins 1 tab 08/01/22 09:00 08/02/22 08:11 (units unknown) (unknown) (unknown) (no date) (unknown) (unknown) Narrative (units unknown) (unknown) (unknown) (no date) (unknown) (unknown) Neut # (Auto) 3100 (units unknown) (unknown) (unknown) (no date) (unknown) (unknown) Neut % (Auto) 63.0 (units unknown) (unknown) (unknown) (no date) (unknown) (unknown) Objective (units unknown) (unknown) (unknown) (no date) (unknown) (unknown) 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: hospitalist, RN (units unknown) (unknown) (unknown) (no date) (unknown) (unknown) Oxygen Delivery Method Room Air (units unknown) (unknown) (unknown) (no date) (unknown) (unknown) Oxygen Delivery Method (units unknown) (unknown) (unknown) (no date) (unknown) (unknown) Oxygen Flow Rate 0 (units unknown) (unknown) (unknown) (no date) (unknown) (unknown) PPx: lovenox, protonix (units unknown) (unknown) (unknown) (no date) (unknown) (unknown) Pantoprazole 40 Mg Vial IV 40 mg (units unknown) (unknown) (unknown) (no date) (unknown) (unknown) Pantoprazole Sodium 40 mg 08/01/22 09:00 08/02/22 09:55 (units unknown) (unknown) (unknown) (no date) (unknown) (unknown) Patient Location: ICU (units unknown) (unknown) (unknown) (no date) (unknown) (unknown) Patient summary: 31 yo woman with PMH Of ETOH abuse admitted 08/01/22 for ETOH (units unknown) (unknown) (unknown) (no date) (unknown) (unknown) Patient: Sarah Connors MR#: M (units unknown) (unknown) (unknown) (no date) (unknown) (unknown) Patinet seen over [address] way audio-visual system. She is alert, calm, and cooperative (units unknown) (unknown) (unknown) (no date) (unknown) (unknown) Phenobarbital 60 mg 08/01/22 09:00 08/02/22 21:29 (units unknown) (unknown) (unknown) (no date) (unknown) (unknown) Phenobarbital 65 Mg/Ml Vial IV 60 mg (units unknown) (unknown) (unknown) (no date) (unknown) (unknown) Plan (units unknown) (unknown) (unknown) (no date) (unknown) (unknown) Plt Count 155 (units unknown) (unknown) (unknown) (no date) (unknown) (unknown) Potassium 3.8 3.4 (units unknown) (unknown) (unknown) (no date) (unknown) (unknown) Precedex IV 1 mcg/kg/hr (units unknown) (unknown) (unknown) (no date) (unknown) (unknown) Protocol (units unknown) (unknown) (unknown) (no date) (unknown) (unknown) Provider location (State): [place] (units unknown) (unknown) (unknown) (no date) (unknown) (unknown) Provider: Riki Clay MD (units unknown) (unknown) (unknown) (no date) (unknown) (unknown) Pulse Oximetry 94 (units unknown) (unknown) (unknown) (no date) (unknown) (unknown) Pulse Oximetry 95 98 (units unknown) (unknown) (unknown) (no date) (unknown) (unknown) Pulse Oximetry 98 98 (units unknown) (unknown) (unknown) (no date) (unknown) (unknown) Pulse Oximetry 98 (units unknown) (unknown) (unknown) (no date) (unknown) (unknown) Pulse Oximetry 99 100 (units unknown) (unknown) (unknown) (no date) (unknown) (unknown) Pulse Oximetry 99 98 (units unknown) (unknown) (unknown) (no date) (unknown) (unknown) Pulse Oximetry 99 (units unknown) (unknown) (unknown) (no date) (unknown) (unknown) Pulse Rate 45 L (units unknown) (unknown) (unknown) (no date) (unknown) (unknown) Pulse Rate 46 L 46 L (units unknown) (unknown) (unknown) (no date) (unknown) (unknown) Pulse Rate 47 L 48 L (units unknown) (unknown) (unknown) (no date) (unknown) (unknown) Pulse Rate 47 L (units unknown) (unknown) (unknown) (no date) (unknown) (unknown) Pulse Rate 48 L (units unknown) (unknown) (unknown) (no date) (unknown) (unknown) Pulse Rate 49 L 47 L (units unknown) (unknown) (unknown) (no date) (unknown) (unknown) Pulse Rate 49 L 49 L (units unknown) (unknown) (unknown) (no date) (unknown) (unknown) Pulse Rate 50 L 50 L (units unknown) (unknown) (unknown) (no date) (unknown) (unknown) Pyridoxine 100 Mg/Ml Vial IV 100 mg (units unknown) (unknown) (unknown) (no date) (unknown) (unknown) Pyridoxine HCl 100 m g 08/01/22 09:00 08/02/22 09:55 (units unknown) (unknown) (unknown) (no date) (unknown) (unknown) Q6HR SANDY (units unknown) (unknown) (unknown) (no date) (unknown) (unknown) RBC 3.71 L (units unknown) (unknown) (unknown) (no date) (unknown) (unknown) RBC Morphology Not Reportable (units unknown) (unknown) (unknown) (no date) (unknown) (unknown) RDW 20.3 H (units unknown) (unknown) (unknown) (no date) (unknown) (unknown) Recent events: Patient's DT's improving. She was on Dex at 1 mcg/kg/hr this (units unknown) (unknown) (unknown) (no date) (unknown) (unknown) Respiratory Rate 16 15 (units unknown) (unknown) (unknown) (no date) (unknown) (unknown) Respiratory Rate 16 (units unknown) (unknown) (unknown) (no date) (unknown) (unknown) Respiratory Rate 17 16 (units unknown) (unknown) (unknown) (no date) (unknown) (unknown) Respiratory Rate 18 22 (units unknown) (unknown) (unknown) (no date) (unknown) (unknown) Respiratory Rate 19 19 (units unknown) (unknown) (unknown) (no date) (unknown) (unknown) Respiratory Rate 19 (units unknown) (unknown) (unknown) (no date) (unknown) (unknown) Respiratory Rate 20 17 (units unknown) (unknown) (unknown) (no date) (unknown) (unknown) Signed By:<Electronically signed by Riki Clay MD> (units unknown) (unknown) (unknown) (no date) (unknown) (unknown) Sodium 134 L (units unknown) (unknown) (unknown) (no date) (unknown) (unknown) Subjective (units unknown) (unknown) (unknown) (no date) (unknown) (unknown) TITRATE SANDY 13.494 mls/hr (units unknown) (unknown) (unknown) (no date) (unknown) (unknown) Teleintensivist Progress Note (units unknown) (unknown) (unknown) (no date) (unknown) (unknown) Temperature 97.7 F (units unknown) (unknown) (unknown) (no date) (unknown) (unknown) Temperature 98.7 F (units unknown) (unknown) (unknown) (no date) (unknown) (unknown) Temperature (units unknown) (unknown) (unknown) (no date) (unknown) (unknown) Thiamine HCl 100 mg/ Sodium 101 mls @ 404 mls/hr 08/01/22 09:00 08/02/22 (units unknown) (unknown) (unknown) (no date) (unknown) (unknown) Time Spent With Patient (units unknown) (unknown) (unknown) (no date) (unknown) (unknown) Time with patient: 3 0 to 49 minutes with 50% spent counseling/coordinati ng care (units unknown) (unknown) (unknown) (no date) (unknown) (unknown) Trade Name Freq PRN Reason Stop Dose Admin (units unknown) (unknown) (unknown) (no date) (unknown) (unknown) Visit Medications (administered) (units unknown) (unknown) (unknown) (no date) (unknown) (unknown) Vital Signs (units unknown) (unknown) (unknown) (no date) (unknown) (unknown) WBC 4.9 (units unknown) (unknown) (unknown) (no date) (unknown) (unknown) [Embedded Image Not Available] (units unknown) (unknown) (unknown) (no date) (unknown) (unknown) [Rx Confirmed 08/01/22] (units unknown) (unknown) (unknown) (no date) (unknown) (unknown) agitation develops later can consider additional doses of Phenobarn prn (units unknown) (unknown) (unknown) (no date) (unknown) (unknown) communication: Camer a activated (units unknown) (unknown) (unknown) (no date) (unknown) (unknown) dexmedeTOMIDine in 0.9 % NaCL 400 mcg in 100 mls @ 26.989 mls/hr 08/01/22 (units unknown) (unknown) (unknown) (no date) (unknown) (unknown) fluoxetine 10 mg capsule 10 mg PO DAILY 07/13/22 [History Confirmed 08/01/22] (units unknown) (unknown) (unknown) (no date) (unknown) (unknown) hydroxyzine HCl 50 m g tablet 50 mg PO DAILY 07/13/22 [History Confirmed (units unknown) (unknown) (unknown) (no date) (unknown) (unknown) maintenance fluid D5LR (units unknown) (unknown) (unknown) (no date) (unknown) (unknown) morning but then her IV was lost so she is currently off Dex. (units unknown) (unknown) (unknown) (no date) (unknown) (unknown) multivitamin with folic acid 400 mcg tablet (Tab-A-Kael) 1 tab PO DAILY #30 tabs (units unknown) (unknown) (unknown) (no date) (unknown) (unknown) pantoprazole 40 mg tablet,delayed release 40 mg PO 0700 #30 tabs 07/14/22 [Rx (units unknown) (unknown) (unknown) (no date) (unknown) (unknown) quetiapine 300 mg tablet 300 mg PO DAILY 07/13/22 [History Confirmed 08/01/22] (units unknown) (unknown) (unknown) (no date) (unknown) (unknown) thiamine mononitrate (vit B1) 100 mg tablet 100 mg PO DAILY #30 tabs 07/14/22 (units unknown) (unknown) (unknown) (no date) (unknown) (unknown) withrawal and DTS. PT. given ativan, phenobarb, and placed on precedex drip. (units unknown) (unknown) Result panel 2272 (unknown) (no date) (unknown) (unknown) 1.7 mg/dl (unknown) Result panel 2273 (unknown) (no date) (unknown) (unknown) (no value) (units unknown) (unknown) (unknown) (no date) (unknown) (unknown) (past 8 hours): (units unknown) (unknown) (unknown) (no date) (unknown) (unknown) [id number] (units unknown) (unknown) (unknown) (no date) (unknown) (unknown) 01:00 08/03/22 (units unknown) (unknown) (unknown) (no date) (unknown) (unknown) 01:00 (units unknown) (unknown) (unknown) (no date) (unknown) (unknown) 01:30 08/03/22 (units unknown) (unknown) (unknown) (no date) (unknown) (unknown) 02:00 08/03/22 (units unknown) (unknown) (unknown) (no date) (unknown) (unknown) 02:00 (units unknown) (unknown) (unknown) (no date) (unknown) (unknown) 02:14 08/03/22 (units unknown) (unknown) (unknown) (no date) (unknown) (unknown) 02:30 08/03/22 (units unknown) (unknown) (unknown) (no date) (unknown) (unknown) 08/02/22 08/03/22 (units unknown) (unknown) (unknown) (no date) (unknown) (unknown) 08/03/22 07:50 (units unknown) (unknown) (unknown) (no date) (unknown) (unknown) 08/03/22 (units unknown) (unknown) (unknown) (no date) (unknown) (unknown) 03:00 08/03/22 (units unknown) (unknown) (unknown) (no date) (unknown) (unknown) 03:00 (units unknown) (unknown) (unknown) (no date) (unknown) (unknown) 03:30 (units unknown) (unknown) (unknown) (no date) (unknown) (unknown) 03:44 08/03/22 (units unknown) (unknown) (unknown) (no date) (unknown) (unknown) 04:00 08/03/22 (units unknown) (unknown) (unknown) (no date) (unknown) (unknown) 04:30 (units unknown) (unknown) (unknown) (no date) (unknown) (unknown) 05:00 08/03/22 (units unknown) (unknown) (unknown) (no date) (unknown) (unknown) 05:30 (units unknown) (unknown) (unknown) (no date) (unknown) (unknown) 06:00 08/03/22 (units unknown) (unknown) (unknown) (no date) (unknown) (unknown) 06:30 (units unknown) (unknown) (unknown) (no date) (unknown) (unknown) 07:00 08/03/22 (units unknown) (unknown) (unknown) (no date) (unknown) (unknown) 07:00 (units unknown) (unknown) (unknown) (no date) (unknown) (unknown) 21:20 07:50 (units unknown) (unknown) (unknown) (no date) (unknown) (unknown) ABD: soft, nontender , nondistended, no organomegaly (units unknown) (unknown) (unknown) (no date) (unknown) (unknown) Age/Sex: 31 / F (units unknown) (unknown) (unknown) (no date) (unknown) (unknown) Alcohol withdrawal delirium, acute, hyperactive (units unknown) (unknown) (unknown) (no date) (unknown) (unknown) Alcoholism (units unknown) (unknown) (unknown) (no date) (unknown) (unknown) Anemia (-2018) (units unknown) (unknown) (unknown) (no date) (unknown) (unknown) Anisocytosis 1+ H (units unknown) (unknown) (unknown) (no date) (unknown) (unknown) Baso # (Auto) 0 (units unknown) (unknown) (unknown) (no date) (unknown) (unknown) Baso % (Auto) 0.4 (units unknown) (unknown) (unknown) (no date) (unknown) (unknown) Blood Pressure 122/76 (units unknown) (unknown) (unknown) (no date) (unknown) (unknown) Blood Pressure 126/83 (units unknown) (unknown) (unknown) (no date) (unknown) (unknown) Blood Pressure 126/88 (units unknown) (unknown) (unknown) (no date) (unknown) (unknown) Blood Pressure 128/80 (units unknown) (unknown) (unknown) (no date) (unknown) (unknown) Blood Pressure 128/83 (units unknown) (unknown) (unknown) (no date) (unknown) (unknown) Blood Pressure 130/81 (units unknown) (unknown) (unknown) (no date) (unknown) (unknown) Blood Pressure 138/77 (units unknown) (unknown) (unknown) (no date) (unknown) (unknown) Blood Pressure (units unknown) (unknown) (unknown) (no date) (unknown) (unknown) CV: regular rate and rhythm, no murmurs (units unknown) (unknown) (unknown) (no date) (unknown) (unknown) : 1990 Acct:[id number] (units unknown) (unknown) (unknown) (no date) (unknown) (unknown) Date of Service: 08/01/22 (units unknown) (unknown) (unknown) (no date) (unknown) (unknown) EXT: warm and well perfused with no edema (units unknown) (unknown) (unknown) (no date) (unknown) (unknown) Eos # (Auto) 100 (units unknown) (unknown) (unknown) (no date) (unknown) (unknown) Eos % (Auto) 2.5 (units unknown) (unknown) (unknown) (no date) (unknown) (unknown) Exam Narrative: (units unknown) (unknown) (unknown) (no date) (unknown) (unknown) Exam (units unknown) (unknown) (unknown) (no date) (unknown) (unknown) Family History (units unknown) (unknown) (unknown) (no date) (unknown) (unknown) Family/Other Alcoholism (units unknown) (unknown) (unknown) (no date) (unknown) (unknown) Family/Other Diabete s mellitus (units unknown) (unknown) (unknown) (no date) (unknown) (unknown) Father Alcoholism (units unknown) (unknown) (unknown) (no date) (unknown) (unknown) GEN: no acute distress, sleeping (units unknown) (unknown) (unknown) (no date) (unknown) (unknown) Grandfather Smoker (units unknown) (unknown) (unknown) (no date) (unknown) (unknown) Grandfather Unknown whether patient has any health problems (units unknown) (unknown) (unknown) (no date) (unknown) (unknown) Grandmother Diabetes mellitus (units unknown) (unknown) (unknown) (no date) (unknown) (unknown) Grandmother Hypoglycemia (units unknown) (unknown) (unknown) (no date) (unknown) (unknown) H/O dilation and curettage (-12/14/16) (units unknown) (unknown) (unknown) (no date) (unknown) (unknown) H/O wisdom tooth extraction () (units unknown) (unknown) (unknown) (no date) (unknown) (unknown) HEENT: moist mucous membranes, PERRL (units unknown) (unknown) (unknown) (no date) (unknown) (unknown) Hct 29.7 L (units unknown) (unknown) (unknown) (no date) (unknown) (unknown) Hgb 10.0 L (units unknown) (unknown) (unknown) (no date) (unknown) (unknown) Insomnia (units unknown) (unknown) (unknown) (no date) (unknown) (unknown) [address] [address] (units unknown) (unknown) (unknown) (no date) (unknown) (unknown) Laboratory Results - last 24 hr (units unknown) (unknown) (unknown) (no date) (unknown) (unknown) Labs (units unknown) (unknown) (unknown) (no date) (unknown) (unknown) Labs: (units unknown) (unknown) (unknown) (no date) (unknown) (unknown) Lymph # (Auto) 1300 (units unknown) (unknown) (unknown) (no date) (unknown) (unknown) Lymph % (Auto) 26.4 (units unknown) (unknown) (unknown) (no date) (unknown) (unknown) MCH 27.0 (units unknown) (unknown) (unknown) (no date) (unknown) (unknown) MCHC 33.7 (units unknown) (unknown) (unknown) (no date) (unknown) (unknown) MCV 80.1 (units unknown) (unknown) (unknown) (no date) (unknown) (unknown) Medical History (units unknown) (unknown) (unknown) (no date) (unknown) (unknown) Menometrorrhagia (units unknown) (unknown) (unknown) (no date) (unknown) (unknown) [place] # (Auto) 400 (units unknown) (unknown) (unknown) (no date) (unknown) (unknown) [place] % (Auto) 7.7 (units unknown) (unknown) (unknown) (no date) (unknown) (unknown) Mother Diabetes mellitus (units unknown) (unknown) (unknown) (no date) (unknown) (unknown) NECK: trachea midline, no JVD (units unknown) (unknown) (unknown) (no date) (unknown) (unknown) NEURO: no focal deficits (units unknown) (unknown) (unknown) (no date) (unknown) (unknown) Narrative (units unknown) (unknown) (unknown) (no date) (unknown) (unknown) Neut # (Auto) 3100 (units unknown) (unknown) (unknown) (no date) (unknown) (unknown) Neut % (Auto) 63.0 (units unknown) (unknown) (unknown) (no date) (unknown) (unknown) Obesity (units unknown) (unknown) (unknown) (no date) (unknown) (unknown) Objective (units unknown) (unknown) (unknown) (no date) (unknown) (unknown) Overweight (units unknown) (unknown) (unknown) (no date) (unknown) (unknown) Oxygen Delivery Method Room Air (units unknown) (unknown) (unknown) (no date) (unknown) (unknown) Oxygen Delivery Method (units unknown) (unknown) (unknown) (no date) (unknown) (unknown) Oxygen Flow Rate 0 (units unknown) (unknown) (unknown) (no date) (unknown) (unknown) PFSH (units unknown) (unknown) (unknown) (no date) (unknown) (unknown) PULM: clear bilaterally (units unknown) (unknown) (unknown) (no date) (unknown) (unknown) Patient: Sarah Connors MR#: M (units unknown) (unknown) (unknown) (no date) (unknown) (unknown) Plt Count 155 (units unknown) (unknown) (unknown) (no date) (unknown) (unknown) Potassium 3.8 (units unknown) (unknown) (unknown) (no date) (unknown) (unknown) Progress Note (units unknown) (unknown) (unknown) (no date) (unknown) (unknown) Provider: Jabari Sena D.O. (units unknown) (unknown) (unknown) (no date) (unknown) (unknown) Pulse Oximetry 94 (units unknown) (unknown) (unknown) (no date) (unknown) (unknown) Pulse Oximetry 95 98 (units unknown) (unknown) (unknown) (no date) (unknown) (unknown) Pulse Oximetry 98 98 (units unknown) (unknown) (unknown) (no date) (unknown) (unknown) Pulse Oximetry 98 (units unknown) (unknown) (unknown) (no date) (unknown) (unknown) Pulse Oximetry 99 100 (units unknown) (unknown) (unknown) (no date) (unknown) (unknown) Pulse Oximetry 99 98 (units unknown) (unknown) (unknown) (no date) (unknown) (unknown) Pulse Oximetry 99 (units unknown) (unknown) (unknown) (no date) (unknown) (unknown) Pulse Rate 45 L (units unknown) (unknown) (unknown) (no date) (unknown) (unknown) Pulse Rate 46 L 46 L (units unknown) (unknown) (unknown) (no date) (unknown) (unknown) Pulse Rate 47 L 48 L (units unknown) (unknown) (unknown) (no date) (unknown) (unknown) Pulse Rate 47 L (units unknown) (unknown) (unknown) (no date) (unknown) (unknown) Pulse Rate 48 L (units unknown) (unknown) (unknown) (no date) (unknown) (unknown) Pulse Rate 49 L 47 L (units unknown) (unknown) (unknown) (no date) (unknown) (unknown) Pulse Rate 49 L 49 L (units unknown) (unknown) (unknown) (no date) (unknown) (unknown) Pulse Rate 50 L 50 L (units unknown) (unknown) (unknown) (no date) (unknown) (unknown) RBC 3.71 L (units unknown) (unknown) (unknown) (no date) (unknown) (unknown) RBC Morphology Not Reportable (units unknown) (unknown) (unknown) (no date) (unknown) (unknown) RDW 20.3 H (units unknown) (unknown) (unknown) (no date) (unknown) (unknown) Respiratory Rate 16 15 (units unknown) (unknown) (unknown) (no date) (unknown) (unknown) Respiratory Rate 16 (units unknown) (unknown) (unknown) (no date) (unknown) (unknown) Respiratory Rate 17 16 (units unknown) (unknown) (unknown) (no date) (unknown) (unknown) Respiratory Rate 18 22 (units unknown) (unknown) (unknown) (no date) (unknown) (unknown) Respiratory Rate 19 19 (units unknown) (unknown) (unknown) (no date) (unknown) (unknown) Respiratory Rate 19 (units unknown) (unknown) (unknown) (no date) (unknown) (unknown) Respiratory Rate 20 17 (units unknown) (unknown) (unknown) (no date) (unknown) (unknown) S/P myringotomy with insertion of tube (units unknown) (unknown) (unknown) (no date) (unknown) (unknown) (spontaneous vaginal delivery) (-09/05/18) (units unknown) (unknown) (unknown) (no date) (unknown) (unknown) Signed By: (units unknown) (unknown) (unknown) (no date) (unknown) (unknown) Smoker (units unknown) (unknown) (unknown) (no date) (unknown) (unknown) Smoking Status: Former smoker (units unknown) (unknown) (unknown) (no date) (unknown) (unknown) Social History (units unknown) (unknown) (unknown) (no date) (unknown) (unknown) Surgical History (units unknown) (unknown) (unknown) (no date) (unknown) (unknown) Temperature 97.7 F (units unknown) (unknown) (unknown) (no date) (unknown) (unknown) Temperature 98.7 F (units unknown) (unknown) (unknown) (no date) (unknown) (unknown) Temperature (units unknown) (unknown) (unknown) (no date) (unknown) (unknown) Vital Signs (units unknown) (unknown) (unknown) (no date) (unknown) (unknown) WBC 4.9 (units unknown) (unknown) (unknown) (no date) (unknown) (unknown) [Embedded Image Not Available] (units unknown) (unknown) (unknown) (no date) (unknown) (unknown) alcohol intake: current (units unknown) (unknown) (unknown) (no date) (unknown) (unknown) current occupational exposures/hazards: Yes (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 with Pandemic ) (units unknown) (unknown) (unknown) (no date) (unknown) (unknown) education level: college 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[employer] (units unknown) (unknown) (unknown) (no date) (unknown) (unknown) household members: significant other (units unknown) (unknown) (unknown) (no date) (unknown) (unknown) marital status: (units unknown) (unknown) (unknown) (no date) (unknown) (unknown) number of children: 1 (units unknown) (unknown) (unknown) (no date) (unknown) (unknown) occupational status: employed (units unknown) (unknown) (unknown) (no date) (unknown) (unknown) second hand exposure : No (growing up as a child - not currently) (units unknown) (unknown) (unknown) (no date) (unknown) (unknown) special renee needs: No (units unknown) (unknown) (unknown) (no date) (unknown) (unknown) substance use type: does not use (units unknown) (unknown) Result panel 2274 (unknown) (no date) (unknown) (unknown) (no value) (units unknown) (unknown) (unknown) (no date) (unknown) (unknown) (past 8 hours): (units unknown) (unknown) (unknown) (no date) (unknown) (unknown) [id number] (units unknown) (unknown) (unknown) (no date) (unknown) (unknown) 01:00 08/03/22 (units unknown) (unknown) (unknown) (no date) (unknown) (unknown) 01:00 (units unknown) (unknown) (unknown) (no date) (unknown) (unknown) 01:30 08/03/22 (units unknown) (unknown) (unknown) (no date) (unknown) (unknown) 02:00 08/03/22 (units unknown) (unknown) (unknown) (no date) (unknown) (unknown) 02:00 (units unknown) (unknown) (unknown) (no date) (unknown) (unknown) 02:14 08/03/22 (units unknown) (unknown) (unknown) (no date) (unknown) (unknown) 02:30 08/03/22 (units unknown) (unknown) (unknown) (no date) (unknown) (unknown) 08/02/22 08/03/22 (units unknown) (unknown) (unknown) (no date) (unknown) (unknown) 08/03/22 07:50 (units unknown) (unknown) (unknown) (no date) (unknown) (unknown) 08/03/22 (units unknown) (unknown) (unknown) (no date) (unknown) (unknown) 03:00 08/03/22 (units unknown) (unknown) (unknown) (no date) (unknown) (unknown) 03:00 (units unknown) (unknown) (unknown) (no date) (unknown) (unknown) 03:30 (units unknown) (unknown) (unknown) (no date) (unknown) (unknown) 03:44 08/03/22 (units unknown) (unknown) (unknown) (no date) (unknown) (unknown) 04:00 08/03/22 (units unknown) (unknown) (unknown) (no date) (unknown) (unknown) 04:30 (units unknown) (unknown) (unknown) (no date) (unknown) (unknown) 05:00 08/03/22 (units unknown) (unknown) (unknown) (no date) (unknown) (unknown) 05:30 (units unknown) (unknown) (unknown) (no date) (unknown) (unknown) 06:00 08/03/22 (units unknown) (unknown) (unknown) (no date) (unknown) (unknown) 06:30 (units unknown) (unknown) (unknown) (no date) (unknown) (unknown) 07:00 08/03/22 (units unknown) (unknown) (unknown) (no date) (unknown) (unknown) 07:00 (units unknown) (unknown) (unknown) (no date) (unknown) (unknown) 21:20 07:50 (units unknown) (unknown) (unknown) (no date) (unknown) (unknown) ABD: soft, nontender , nondistended, no organomegaly (units unknown) (unknown) (unknown) (no date) (unknown) (unknown) Age/Sex: 31 / F (units unknown) (unknown) (unknown) (no date) (unknown) (unknown) Alcohol withdrawal delirium, acute, hyperactive (units unknown) (unknown) (unknown) (no date) (unknown) (unknown) Alcoholism (units unknown) (unknown) (unknown) (no date) (unknown) (unknown) Anemia (-2018) (units unknown) (unknown) (unknown) (no date) (unknown) (unknown) Anisocytosis 1+ H (units unknown) (unknown) (unknown) (no date) (unknown) (unknown) Baso # (Auto) 0 (units unknown) (unknown) (unknown) (no date) (unknown) (unknown) Baso % (Auto) 0.4 (units unknown) (unknown) (unknown) (no date) (unknown) (unknown) Blood Pressure 122/76 (units unknown) (unknown) (unknown) (no date) (unknown) (unknown) Blood Pressure 126/83 (units unknown) (unknown) (unknown) (no date) (unknown) (unknown) Blood Pressure 126/88 (units unknown) (unknown) (unknown) (no date) (unknown) (unknown) Blood Pressure 128/80 (units unknown) (unknown) (unknown) (no date) (unknown) (unknown) Blood Pressure 128/83 (units unknown) (unknown) (unknown) (no date) (unknown) (unknown) Blood Pressure 130/81 (units unknown) (unknown) (unknown) (no date) (unknown) (unknown) Blood Pressure 138/77 (units unknown) (unknown) (unknown) (no date) (unknown) (unknown) Blood Pressure (units unknown) (unknown) (unknown) (no date) (unknown) (unknown) CV: regular rate and rhythm, no murmurs (units unknown) (unknown) (unknown) (no date) (unknown) (unknown) : 1990 Acct:[id number] (units unknown) (unknown) (unknown) (no date) (unknown) (unknown) Date of Service: 08/01/22 (units unknown) (unknown) (unknown) (no date) (unknown) (unknown) EXT: warm and well perfused with no edema (units unknown) (unknown) (unknown) (no date) (unknown) (unknown) Eos # (Auto) 100 (units unknown) (unknown) (unknown) (no date) (unknown) (unknown) Eos % (Auto) 2.5 (units unknown) (unknown) (unknown) (no date) (unknown) (unknown) Exam Narrative: (units unknown) (unknown) (unknown) (no date) (unknown) (unknown) Exam (units unknown) (unknown) (unknown) (no date) (unknown) (unknown) Family History (units unknown) (unknown) (unknown) (no date) (unknown) (unknown) Family/Other Alcoholism (units unknown) (unknown) (unknown) (no date) (unknown) (unknown) Family/Other Diabete s mellitus (units unknown) (unknown) (unknown) (no date) (unknown) (unknown) Father Alcoholism (units unknown) (unknown) (unknown) (no date) (unknown) (unknown) GEN: no acute distress, sleeping (units unknown) (unknown) (unknown) (no date) (unknown) (unknown) Grandfather Smoker (units unknown) (unknown) (unknown) (no date) (unknown) (unknown) Grandfather Unknown whether patient has any health problems (units unknown) (unknown) (unknown) (no date) (unknown) (unknown) Grandmother Diabetes mellitus (units unknown) (unknown) (unknown) (no date) (unknown) (unknown) Grandmother Hypoglycemia (units unknown) (unknown) (unknown) (no date) (unknown) (unknown) H/O dilation and curettage (-12/14/16) (units unknown) (unknown) (unknown) (no date) (unknown) (unknown) H/O wisdom tooth extraction () (units unknown) (unknown) (unknown) (no date) (unknown) (unknown) HEENT: moist mucous membranes, PERRL (units unknown) (unknown) (unknown) (no date) (unknown) (unknown) Hct 29.7 L (units unknown) (unknown) (unknown) (no date) (unknown) (unknown) Hgb 10.0 L (units unknown) (unknown) (unknown) (no date) (unknown) (unknown) Insomnia (units unknown) (unknown) (unknown) (no date) (unknown) (unknown) [address] [address] (units unknown) (unknown) (unknown) (no date) (unknown) (unknown) Laboratory Results - last 24 hr (units unknown) (unknown) (unknown) (no date) (unknown) (unknown) Labs (units unknown) (unknown) (unknown) (no date) (unknown) (unknown) Labs: (units unknown) (unknown) (unknown) (no date) (unknown) (unknown) Lymph # (Auto) 1300 (units unknown) (unknown) (unknown) (no date) (unknown) (unknown) Lymph % (Auto) 26.4 (units unknown) (unknown) (unknown) (no date) (unknown) (unknown) MCH 27.0 (units unknown) (unknown) (unknown) (no date) (unknown) (unknown) MCHC 33.7 (units unknown) (unknown) (unknown) (no date) (unknown) (unknown) MCV 80.1 (units unknown) (unknown) (unknown) (no date) (unknown) (unknown) Medical History (units unknown) (unknown) (unknown) (no date) (unknown) (unknown) Menometrorrhagia (units unknown) (unknown) (unknown) (no date) (unknown) (unknown) [place] # (Auto) 400 (units unknown) (unknown) (unknown) (no date) (unknown) (unknown) [place] % (Auto) 7.7 (units unknown) (unknown) (unknown) (no date) (unknown) (unknown) Mother Diabetes mellitus (units unknown) (unknown) (unknown) (no date) (unknown) (unknown) NECK: trachea midline, no JVD (units unknown) (unknown) (unknown) (no date) (unknown) (unknown) NEURO: no focal deficits (units unknown) (unknown) (unknown) (no date) (unknown) (unknown) Narrative (units unknown) (unknown) (unknown) (no date) (unknown) (unknown) Neut # (Auto) 3100 (units unknown) (unknown) (unknown) (no date) (unknown) (unknown) Neut % (Auto) 63.0 (units unknown) (unknown) (unknown) (no date) (unknown) (unknown) Obesity (units unknown) (unknown) (unknown) (no date) (unknown) (unknown) Objective (units unknown) (unknown) (unknown) (no date) (unknown) (unknown) Overweight (units unknown) (unknown) (unknown) (no date) (unknown) (unknown) Oxygen Delivery Method Room Air (units unknown) (unknown) (unknown) (no date) (unknown) (unknown) Oxygen Delivery Method (units unknown) (unknown) (unknown) (no date) (unknown) (unknown) Oxygen Flow Rate 0 (units unknown) (unknown) (unknown) (no date) (unknown) (unknown) PFSH (units unknown) (unknown) (unknown) (no date) (unknown) (unknown) PULM: clear bilaterally (units unknown) (unknown) (unknown) (no date) (unknown) (unknown) Patient: Sarah Connors MR#: M (units unknown) (unknown) (unknown) (no date) (unknown) (unknown) Plt Count 155 (units unknown) (unknown) (unknown) (no date) (unknown) (unknown) Potassium 3.8 (units unknown) (unknown) (unknown) (no date) (unknown) (unknown) Progress Note (units unknown) (unknown) (unknown) (no date) (unknown) (unknown) Provider: Jabari Sena D.O. (units unknown) (unknown) (unknown) (no date) (unknown) (unknown) Pulse Oximetry 94 (units unknown) (unknown) (unknown) (no date) (unknown) (unknown) Pulse Oximetry 95 98 (units unknown) (unknown) (unknown) (no date) (unknown) (unknown) Pulse Oximetry 98 98 (units unknown) (unknown) (unknown) (no date) (unknown) (unknown) Pulse Oximetry 98 (units unknown) (unknown) (unknown) (no date) (unknown) (unknown) Pulse Oximetry 99 100 (units unknown) (unknown) (unknown) (no date) (unknown) (unknown) Pulse Oximetry 99 98 (units unknown) (unknown) (unknown) (no date) (unknown) (unknown) Pulse Oximetry 99 (units unknown) (unknown) (unknown) (no date) (unknown) (unknown) Pulse Rate 45 L (units unknown) (unknown) (unknown) (no date) (unknown) (unknown) Pulse Rate 46 L 46 L (units unknown) (unknown) (unknown) (no date) (unknown) (unknown) Pulse Rate 47 L 48 L (units unknown) (unknown) (unknown) (no date) (unknown) (unknown) Pulse Rate 47 L (units unknown) (unknown) (unknown) (no date) (unknown) (unknown) Pulse Rate 48 L (units unknown) (unknown) (unknown) (no date) (unknown) (unknown) Pulse Rate 49 L 47 L (units unknown) (unknown) (unknown) (no date) (unknown) (unknown) Pulse Rate 49 L 49 L (units unknown) (unknown) (unknown) (no date) (unknown) (unknown) Pulse Rate 50 L 50 L (units unknown) (unknown) (unknown) (no date) (unknown) (unknown) RBC 3.71 L (units unknown) (unknown) (unknown) (no date) (unknown) (unknown) RBC Morphology Not Reportable (units unknown) (unknown) (unknown) (no date) (unknown) (unknown) RDW 20.3 H (units unknown) (unknown) (unknown) (no date) (unknown) (unknown) Respiratory Rate 16 15 (units unknown) (unknown) (unknown) (no date) (unknown) (unknown) Respiratory Rate 16 (units unknown) (unknown) (unknown) (no date) (unknown) (unknown) Respiratory Rate 17 16 (units unknown) (unknown) (unknown) (no date) (unknown) (unknown) Respiratory Rate 18 22 (units unknown) (unknown) (unknown) (no date) (unknown) (unknown) Respiratory Rate 19 19 (units unknown) (unknown) (unknown) (no date) (unknown) (unknown) Respiratory Rate 19 (units unknown) (unknown) (unknown) (no date) (unknown) (unknown) Respiratory Rate 20 17 (units unknown) (unknown) (unknown) (no date) (unknown) (unknown) S/P myringotomy with insertion of tube (units unknown) (unknown) (unknown) (no date) (unknown) (unknown) (spontaneous vaginal delivery) (-09/05/18) (units unknown) (unknown) (unknown) (no date) (unknown) (unknown) Signed By: (units unknown) (unknown) (unknown) (no date) (unknown) (unknown) Smoker (units unknown) (unknown) (unknown) (no date) (unknown) (unknown) Smoking Status: Former smoker (units unknown) (unknown) (unknown) (no date) (unknown) (unknown) Social History (units unknown) (unknown) (unknown) (no date) (unknown) (unknown) Surgical History (units unknown) (unknown) (unknown) (no date) (unknown) (unknown) Temperature 97.7 F (units unknown) (unknown) (unknown) (no date) (unknown) (unknown) Temperature 98.7 F (units unknown) (unknown) (unknown) (no date) (unknown) (unknown) Temperature (units unknown) (unknown) (unknown) (no date) (unknown) (unknown) Vital Signs (units unknown) (unknown) (unknown) (no date) (unknown) (unknown) WBC 4.9 (units unknown) (unknown) (unknown) (no date) (unknown) (unknown) [Embedded Image Not Available] (units unknown) (unknown) (unknown) (no date) (unknown) (unknown) alcohol intake: current (units unknown) (unknown) (unknown) (no date) (unknown) (unknown) current occupational exposures/hazards: Yes (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 with Pandemic ) (units unknown) (unknown) (unknown) (no date) (unknown) (unknown) education level: college 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[employer] (units unknown) (unknown) (unknown) (no date) (unknown) (unknown) household members: significant other (units unknown) (unknown) (unknown) (no date) (unknown) (unknown) marital status: (units unknown) (unknown) (unknown) (no date) (unknown) (unknown) number of children: 1 (units unknown) (unknown) (unknown) (no date) (unknown) (unknown) occupational status: employed (units unknown) (unknown) (unknown) (no date) (unknown) (unknown) second hand exposure : No (growing up as a child - not currently) (units unknown) (unknown) (unknown) (no date) (unknown) (unknown) special renee needs: No (units unknown) (unknown) (unknown) (no date) (unknown) (unknown) substance use type: does not use (units unknown) (unknown) Result panel 2275 (unknown) (no date) (unknown) (unknown) (no value) (units unknown) (unknown) (unknown) (no date) (unknown) (unknown) # Acute on chronic moderate protein calorie malnutrition r/t excessive ETOH aeb (units unknown) (unknown) (unknown) (no date) (unknown) (unknown) # GERD (units unknown) (unknown) (unknown) (no date) (unknown) (unknown) # acute alcohol withdrawal with delirium tremens (units unknown) (unknown) (unknown) (no date) (unknown) (unknown) # depression and anxiety (units unknown) (unknown) (unknown) (no date) (unknown) (unknown) # normocytic anemia (units unknown) (unknown) (unknown) (no date) (unknown) (unknown) # toxic metabolic encephalopathy secondary to benzos, barbiturates, and alcohol (units unknown) (unknown) (unknown) (no date) (unknown) (unknown) (past 8 hours): (units unknown) (unknown) (unknown) (no date) (unknown) (unknown) -B12/folate normal (units unknown) (unknown) (unknown) (no date) (unknown) (unknown) -CIWA protocol with Ativan, phenobarbital 60 mg IV b.i.d., Librium 50 q.6 hours (units unknown) (unknown) (unknown) (no date) (unknown) (unknown) -DCR evaluated patient and deemed her safe to discharge home with her (units unknown) (unknown) (unknown) (no date) (unknown) (unknown) -MV, thiamine and B6 daily (units unknown) (unknown) (unknown) (no date) (unknown) (unknown) -able to wean off precedex after 2 days to just librium po (units unknown) (unknown) (unknown) (no date) (unknown) (unknown) -appears to be chronic (units unknown) (unknown) (unknown) (no date) (unknown) (unknown) -continue PPI (units unknown) (unknown) (unknown) (no date) (unknown) (unknown) -continue Precedex drip until and benzos and barbiturates can take effect (units unknown) (unknown) (unknown) (no date) (unknown) (unknown) -continue home Proza c when able to take po (units unknown) (unknown) (unknown) (no date) (unknown) (unknown) -mentation returned to baseline after 2 days (units unknown) (unknown) (unknown) (no date) (unknown) (unknown) -no evidence of bleeding (units unknown) (unknown) (unknown) (no date) (unknown) (unknown) -patient states last drink 5 days ago, but unclear if true given current (units unknown) (unknown) (unknown) (no date) (unknown) (unknown) -patient very agitated in ED and required precedex drip (units unknown) (unknown) (unknown) (no date) (unknown) (unknown) -sent home on libriu m taper as well as antabuse per patient's request (units unknown) (unknown) (unknown) (no date) (unknown) (unknown) [phone] (units unknown) (unknown) (unknown) (no date) (unknown) (unknown) 08/01/22 07:42 (units unknown) (unknown) (unknown) (no date) (unknown) (unknown) 08/01/22 08:13 (units unknown) (unknown) (unknown) (no date) (unknown) (unknown) 08/01/22 08:42 (units unknown) (unknown) (unknown) (no date) (unknown) (unknown) 08/01/22 09:53 (units unknown) (unknown) (unknown) (no date) (unknown) (unknown) 08/02/22 08/03/22 08/03/22 (units unknown) (unknown) (unknown) (no date) (unknown) (unknown) 08/02/22 10:20 (units unknown) (unknown) (unknown) (no date) (unknown) (unknown) 08/03/22 07:50 (units unknown) (unknown) (unknown) (no date) (unknown) (unknown) 08/03/22 1429 (units unknown) (unknown) (unknown) (no date) (unknown) (unknown) 08/03/22 (units unknown) (unknown) (unknown) (no date) (unknown) (unknown) 06:30 08/03/22 (units unknown) (unknown) (unknown) (no date) (unknown) (unknown) 07:00 08/03/22 (units unknown) (unknown) (unknown) (no date) (unknown) (unknown) 07:00 (units unknown) (unknown) (unknown) (no date) (unknown) (unknown) 07:30 08/03/22 (units unknown) (unknown) (unknown) (no date) (unknown) (unknown) 07:50 (units unknown) (unknown) (unknown) (no date) (unknown) (unknown) 08:00 08/03/22 (units unknown) (unknown) (unknown) (no date) (unknown) (unknown) 08:00 (units unknown) (unknown) (unknown) (no date) (unknown) (unknown) 08:30 08/03/22 (units unknown) (unknown) (unknown) (no date) (unknown) (unknown) 09:00 08/03/22 (units unknown) (unknown) (unknown) (no date) (unknown) (unknown) 09:00 (units unknown) (unknown) (unknown) (no date) (unknown) (unknown) 09:30 08/03/22 (units unknown) (unknown) (unknown) (no date) (unknown) (unknown) 1 tab PO DAILY Qty: 30 0RF (units unknown) (unknown) (unknown) (no date) (unknown) (unknown) 10 mg PO DAILY (units unknown) (unknown) (unknown) (no date) (unknown) (unknown) 100 mg PO DAILY Qty: 30 0RF (units unknown) (unknown) (unknown) (no date) (unknown) (unknown) 10:00 08/03/22 (units unknown) (unknown) (unknown) (no date) (unknown) (unknown) 10:00 (units unknown) (unknown) (unknown) (no date) (unknown) (unknown) 10:30 (units unknown) (unknown) (unknown) (no date) (unknown) (unknown) 21:20 07:50 07:50 (units unknown) (unknown) (unknown) (no date) (unknown) (unknown) 25 mg orally 3 times daily for 2 days, then 2 times daily for 2 days then (units unknown) (unknown) (unknown) (no date) (unknown) (unknown) 250 mg PO DAILY Qty: 30 0RF (units unknown) (unknown) (unknown) (no date) (unknown) (unknown) 300 mg PO DAILY (units unknown) (unknown) (unknown) (no date) (unknown) (unknown) 40 mg PO 0700 Qty: 3 0 0RF (units unknown) (unknown) (unknown) (no date) (unknown) (unknown) 50 mg PO DAILY (units unknown) (unknown) (unknown) (no date) (unknown) (unknown) ABD: soft, nontender , nondistended, no organomegaly (units unknown) (unknown) (unknown) (no date) (unknown) (unknown) Admitted for acute alcohol withdrawals requiring phenobarb, precedex and IV (units unknown) (unknown) (unknown) (no date) (unknown) (unknown) Age/Sex: 31 / F (units unknown) (unknown) (unknown) (no date) (unknown) (unknown) Alcohol withdrawal delirium, acute, hyperactive (units unknown) (unknown) (unknown) (no date) (unknown) (unknown) Alcoholism (units unknown) (unknown) (unknown) (no date) (unknown) (unknown) Anemia (-2018) (units unknown) (unknown) (unknown) (no date) (unknown) (unknown) Anisocytosis 1+ H (units unknown) (unknown) (unknown) (no date) (unknown) (unknown) Anisocytosis (units unknown) (unknown) (unknown) (no date) (unknown) (unknown) BUN 2 L (units unknown) (unknown) (unknown) (no date) (unknown) (unknown) BUN (units unknown) (unknown) (unknown) (no date) (unknown) (unknown) BUN/Creatinine Ratio 3.6 L (units unknown) (unknown) (unknown) (no date) (unknown) (unknown) BUN/Creatinine Ratio (units unknown) (unknown) (unknown) (no date) (unknown) (unknown) Baso # (Auto) 0 (units unknown) (unknown) (unknown) (no date) (unknown) (unknown) Baso # (Auto) (units unknown) (unknown) (unknown) (no date) (unknown) (unknown) Baso % (Auto) 0.4 (units unknown) (unknown) (unknown) (no date) (unknown) (unknown) Baso % (Auto) (units unknown) (unknown) (unknown) (no date) (unknown) (unknown) Blood Pressure 121/69 (units unknown) (unknown) (unknown) (no date) (unknown) (unknown) Blood Pressure 122/82 (units unknown) (unknown) (unknown) (no date) (unknown) (unknown) Blood Pressure 130/81 (units unknown) (unknown) (unknown) (no date) (unknown) (unknown) Blood Pressure (units unknown) (unknown) (unknown) (no date) (unknown) (unknown) CV: regular rate and rhythm, no murmurs (units unknown) (unknown) (unknown) (no date) (unknown) (unknown) Calcium 8.1 L (units unknown) (unknown) (unknown) (no date) (unknown) (unknown) Calcium (units unknown) (unknown) (unknown) (no date) (unknown) (unknown) Carbon Dioxide 28 (units unknown) (unknown) (unknown) (no date) (unknown) (unknown) Carbon Dioxide (units unknown) (unknown) (unknown) (no date) (unknown) (unknown) Chief complaint: Altered LOC (units unknown) (unknown) (unknown) (no date) (unknown) (unknown) Chloride 101 (units unknown) (unknown) (unknown) (no date) (unknown) (unknown) Chloride (units unknown) (unknown) (unknown) (no date) (unknown) (unknown) Comment: (units unknown) (unknown) (unknown) (no date) (unknown) (unknown) Consult to Dietitian , Adult Routine (units unknown) (unknown) (unknown) (no date) (unknown) (unknown) 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 (units unknown) (unknown) (unknown) (no date) (unknown) (unknown) Consult to 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 (units unknown) (unknown) (unknown) (no date) (unknown) (unknown) Consult to 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 (units unknown) (unknown) (unknown) (no date) (unknown) (unknown) Consulting Provider: [employer] (units unknown) (unknown) (unknown) (no date) (unknown) (unknown) Consults: (units unknown) (unknown) (unknown) (no date) (unknown) (unknown) Continued (units unknown) (unknown) (unknown) (no date) (unknown) (unknown) Creatinine 0.55 (units unknown) (unknown) (unknown) (no date) (unknown) (unknown) Creatinine (units unknown) (unknown) (unknown) (no date) (unknown) (unknown) : 1990 Acct:[id number] (units unknown) (unknown) (unknown) (no date) (unknown) (unknown) Date Patient Seen: 08/03/22 (units unknown) (unknown) (unknown) (no date) (unknown) (unknown) Date of Service: 08/01/22 (units unknown) (unknown) (unknown) (no date) (unknown) (unknown) Date of admission: (units unknown) (unknown) (unknown) (no date) (unknown) (unknown) Discharge Data (units unknown) (unknown) (unknown) (no date) (unknown) (unknown) Discharge Date: 08/03/22 (units unknown) (unknown) (unknown) (no date) (unknown) (unknown) Discharge Diagnosis: (units unknown) (unknown) (unknown) (no date) (unknown) (unknown) Discharge Plan (units unknown) (unknown) (unknown) (no date) (unknown) (unknown) Discharge Providers (units unknown) (unknown) (unknown) (no date) (unknown) (unknown) Discharge Summary (units unknown) (unknown) (unknown) (no date) (unknown) (unknown) Discharge orders + Medications (units unknown) (unknown) (unknown) (no date) (unknown) (unknown) Discharge provider: (units unknown) (unknown) (unknown) (no date) (unknown) (unknown) EXT: warm and well perfused with no edema (units unknown) (unknown) (unknown) (no date) (unknown) (unknown) Eos # (Auto) 100 (units unknown) (unknown) (unknown) (no date) (unknown) (unknown) Eos # (Auto) (units unknown) (unknown) (unknown) (no date) (unknown) (unknown) Eos % (Auto) 2.5 (units unknown) (unknown) (unknown) (no date) (unknown) (unknown) Eos % (Auto) (units unknown) (unknown) (unknown) (no date) (unknown) (unknown) Estimated GFR > 60 (units unknown) (unknown) (unknown) (no date) (unknown) (unknown) Estimated GFR (units unknown) (unknown) (unknown) (no date) (unknown) (unknown) Exam Narrative: (units unknown) (unknown) (unknown) (no date) (unknown) (unknown) Exam (units unknown) (unknown) (unknown) (no date) (unknown) (unknown) Family History (units unknown) (unknown) (unknown) (no date) (unknown) (unknown) Family/Other Alcoholism (units unknown) (unknown) (unknown) (no date) (unknown) (unknown) Family/Other Diabete s mellitus (units unknown) (unknown) (unknown) (no date) (unknown) (unknown) Father Alcoholism (units unknown) (unknown) (unknown) (no date) (unknown) (unknown) Tonia Schneider MD [Primary Care Provider] (units unknown) (unknown) (unknown) (no date) (unknown) (unknown) Follow up/Referrals: (units unknown) (unknown) (unknown) (no date) (unknown) (unknown) GEN: no acute distress, sarcastic (units unknown) (unknown) (unknown) (no date) (unknown) (unknown) Glucose 131 H (units unknown) (unknown) (unknown) (no date) (unknown) (unknown) Glucose (units unknown) (unknown) (unknown) (no date) (unknown) (unknown) Grandfather Smoker (units unknown) (unknown) (unknown) (no date) (unknown) (unknown) Grandfather Unknown whether patient has any health problems (units unknown) (unknown) (unknown) (no date) (unknown) (unknown) Grandmother Diabetes mellitus (units unknown) (unknown) (unknown) (no date) (unknown) (unknown) Grandmother Hypoglycemia (units unknown) (unknown) (unknown) (no date) (unknown) (unknown) H/O dilation and curettage (-12/14/16) (units unknown) (unknown) (unknown) (no date) (unknown) (unknown) H/O wisdom tooth extraction () (units unknown) (unknown) (unknown) (no date) (unknown) (unknown) HEENT: moist mucous membranes, PERRL (units unknown) (unknown) (unknown) (no date) (unknown) (unknown) Hct 29.7 L (units unknown) (unknown) (unknown) (no date) (unknown) (unknown) Hct (units unknown) (unknown) (unknown) (no date) (unknown) (unknown) Hgb 10.0 L (units unknown) (unknown) (unknown) (no date) (unknown) (unknown) Hgb (units unknown) (unknown) (unknown) (no date) (unknown) (unknown) History of Present Illness (units unknown) (unknown) (unknown) (no date) (unknown) (unknown) Hospital Course (units unknown) (unknown) (unknown) (no date) (unknown) (unknown) Hospital Course: (units unknown) (unknown) (unknown) (no date) (unknown) (unknown) Insomnia (units unknown) (unknown) (unknown) (no date) (unknown) (unknown) [address] [address] (units unknown) (unknown) (unknown) (no date) (unknown) (unknown) Laboratory Results - last 24 hr (units unknown) (unknown) (unknown) (no date) (unknown) (unknown) Labs (units unknown) (unknown) (unknown) (no date) (unknown) (unknown) Labs: (units unknown) (unknown) (unknown) (no date) (unknown) (unknown) Lymph # (Auto) 1300 (units unknown) (unknown) (unknown) (no date) (unknown) (unknown) Lymph # (Auto) (units unknown) (unknown) (unknown) (no date) (unknown) (unknown) Lymph % (Auto) 26.4 (units unknown) (unknown) (unknown) (no date) (unknown) (unknown) Lymph % (Auto) (units unknown) (unknown) (unknown) (no date) (unknown) (unknown) MCH 27.0 (units unknown) (unknown) (unknown) (no date) (unknown) (unknown) MCH (units unknown) (unknown) (unknown) (no date) (unknown) (unknown) MCHC 33.7 (units unknown) (unknown) (unknown) (no date) (unknown) (unknown) MCHC (units unknown) (unknown) (unknown) (no date) (unknown) (unknown) MCV 80.1 (units unknown) (unknown) (unknown) (no date) (unknown) (unknown) MCV (units unknown) (unknown) (unknown) (no date) (unknown) (unknown) Magnesium 1.7 (units unknown) (unknown) (unknown) (no date) (unknown) (unknown) Magnesium (units unknown) (unknown) (unknown) (no date) (unknown) (unknown) Jabari Sena DO (units unknown) (unknown) (unknown) (no date) (unknown) (unknown) Medical History (units unknown) (unknown) (unknown) (no date) (unknown) (unknown) Menometrorrhagia (units unknown) (unknown) (unknown) (no date) (unknown) (unknown) [place] # (Auto) 400 (units unknown) (unknown) (unknown) (no date) (unknown) (unknown) [place] # (Auto) (units unknown) (unknown) (unknown) (no date) (unknown) (unknown) [place] % (Auto) 7.7 (units unknown) (unknown) (unknown) (no date) (unknown) (unknown) [place] % (Auto) (units unknown) (unknown) (unknown) (no date) (unknown) (unknown) Mother Diabetes mellitus (units unknown) (unknown) (unknown) (no date) (unknown) (unknown) NECK: trachea midline, no JVD (units unknown) (unknown) (unknown) (no date) (unknown) (unknown) NEURO: no focal deficits (units unknown) (unknown) (unknown) (no date) (unknown) (unknown) Tnoia Schneider MD (units unknown) (unknown) (unknown) (no date) (unknown) (unknown) Narrative (units unknown) (unknown) (unknown) (no date) (unknown) (unknown) Narrative: (units unknown) (unknown) (unknown) (no date) (unknown) (unknown) Neut # (Auto) 3100 (units unknown) (unknown) (unknown) (no date) (unknown) (unknown) Neut # (Auto) (units unknown) (unknown) (unknown) (no date) (unknown) (unknown) Neut % (Auto) 63.0 (units unknown) (unknown) (unknown) (no date) (unknown) (unknown) Neut % (Auto) (units unknown) (unknown) (unknown) (no date) (unknown) (unknown) New (units unknown) (unknown) (unknown) (no date) (unknown) (unknown) Obesity (units unknown) (unknown) (unknown) (no date) (unknown) (unknown) Objective (units unknown) (unknown) (unknown) (no date) (unknown) (unknown) Overweight (units unknown) (unknown) (unknown) (no date) (unknown) (unknown) Oxygen Delivery Method Room Air (units unknown) (unknown) (unknown) (no date) (unknown) (unknown) Oxygen Delivery Method (units unknown) (unknown) (unknown) (no date) (unknown) (unknown) Oxygen Flow Rate 0 (units unknown) (unknown) (unknown) (no date) (unknown) (unknown) PFSH (units unknown) (unknown) (unknown) (no date) (unknown) (unknown) PULM: clear bilaterally (units unknown) (unknown) (unknown) (no date) (unknown) (unknown) Patient Disposition: Home (units unknown) (unknown) (unknown) (no date) (unknown) (unknown) 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 She was previously (units unknown) (unknown) (unknown) (no date) (unknown) (unknown) Patient: Sarah Connors MR#: M (units unknown) (unknown) (unknown) (no date) (unknown) (unknown) Plt Count 155 (units unknown) (unknown) (unknown) (no date) (unknown) (unknown) Plt Count (units unknown) (unknown) (unknown) (no date) (unknown) (unknown) Potassium 3.8 3.4 (units unknown) (unknown) (unknown) (no date) (unknown) (unknown) Potassium (units unknown) (unknown) (unknown) (no date) (unknown) (unknown) Prescriptions: (units unknown) (unknown) (unknown) (no date) (unknown) (unknown) Primary Care Provider: Tonia Schneider (units unknown) (unknown) (unknown) (no date) (unknown) (unknown) Primary care physician: (units unknown) (unknown) (unknown) (no date) (unknown) (unknown) Provider Discharge Comment: You were admitted for severe alcohol withdrawals. (units unknown) (unknown) (unknown) (no date) (unknown) (unknown) Provider (units unknown) (unknown) (unknown) (no date) (unknown) (unknown) Provider: Jabari Sena D.O. (units unknown) (unknown) (unknown) (no date) (unknown) (unknown) Pulse Oximetry 93 (units unknown) (unknown) (unknown) (no date) (unknown) (unknown) Pulse Oximetry 95 98 100 (units unknown) (unknown) (unknown) (no date) (unknown) (unknown) Pulse Oximetry 98 98 (units unknown) (unknown) (unknown) (no date) (unknown) (unknown) Pulse Oximetry 98 (units unknown) (unknown) (unknown) (no date) (unknown) (unknown) Pulse Oximetry 99 99 (units unknown) (unknown) (unknown) (no date) (unknown) (unknown) Pulse Rate 45 L 64 (units unknown) (unknown) (unknown) (no date) (unknown) (unknown) Pulse Rate 48 L (units unknown) (unknown) (unknown) (no date) (unknown) (unknown) Pulse Rate 50 L 48 L (units unknown) (unknown) (unknown) (no date) (unknown) (unknown) Pulse Rate 53 L 66 5 5 L (units unknown) (unknown) (unknown) (no date) (unknown) (unknown) Pulse Rate 62 (units unknown) (unknown) (unknown) (no date) (unknown) (unknown) RBC 3.71 L (units unknown) (unknown) (unknown) (no date) (unknown) (unknown) RBC Morphology Not Reportable (units unknown) (unknown) (unknown) (no date) (unknown) (unknown) RBC Morphology (units unknown) (unknown) (unknown) (no date) (unknown) (unknown) RBC (units unknown) (unknown) (unknown) (no date) (unknown) (unknown) RDW 20.3 H (units unknown) (unknown) (unknown) (no date) (unknown) (unknown) RDW (units unknown) (unknown) (unknown) (no date) (unknown) (unknown) Reason For Exam: malnutrition (units unknown) (unknown) (unknown) (no date) (unknown) (unknown) 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 (units unknown) (unknown) (unknown) (no date) (unknown) (unknown) Respiratory Rate 15 18 (units unknown) (unknown) (unknown) (no date) (unknown) (unknown) Respiratory Rate 15 21 18 (units unknown) (unknown) (unknown) (no date) (unknown) (unknown) Respiratory Rate 15 (units unknown) (unknown) (unknown) (no date) (unknown) (unknown) Respiratory Rate 17 16 (units unknown) (unknown) (unknown) (no date) (unknown) (unknown) Respiratory Rate 18 (units unknown) (unknown) (unknown) (no date) (unknown) (unknown) Rx Instructions: (units unknown) (unknown) (unknown) (no date) (unknown) (unknown) S/P myringotomy with insertion of tube (units unknown) (unknown) (unknown) (no date) (unknown) (unknown) (spontaneous vaginal delivery) (-09/05/18) (units unknown) (unknown) (unknown) (no date) (unknown) (unknown) See Rx Instructions .ROUTE .COMPLEX Qty: 30 0RF (units unknown) (unknown) (unknown) (no date) (unknown) (unknown) Signed By:<Electronically signed by Jabari Sena D.O.> (units unknown) (unknown) (unknown) (no date) (unknown) (unknown) Smoker (units unknown) (unknown) (unknown) (no date) (unknown) (unknown) Smoking Status: Former smoker (units unknown) (unknown) (unknown) (no date) (unknown) (unknown) Social History (units unknown) (unknown) (unknown) (no date) (unknown) (unknown) Sodium 134 L (units unknown) (unknown) (unknown) (no date) (unknown) (unknown) Sodium (units unknown) (unknown) (unknown) (no date) (unknown) (unknown) Stand Alone Forms: Patient Portal/API, Stroke Signs + Symptoms (units unknown) (unknown) (unknown) (no date) (unknown) (unknown) Sarah low risk i s a 31-year-old female with past medical history of (units unknown) (unknown) (unknown) (no date) (unknown) (unknown) Summary (units unknown) (unknown) (unknown) (no date) (unknown) (unknown) Surgical History (units unknown) (unknown) (unknown) (no date) (unknown) (unknown) TCA's. EtOH negative. (units unknown) (unknown) (unknown) (no date) (unknown) (unknown) The patient is at much higher risk for medical and surgical complications (units unknown) (unknown) (unknown) (no date) (unknown) (unknown) This improved with high doses of medications. I'm sending you on a librium taper (units unknown) (unknown) (unknown) (no date) (unknown) (unknown) Time Patient Seen: 14:28 (units unknown) (unknown) (unknown) (no date) (unknown) (unknown) Time Spent with Patient (units unknown) (unknown) (unknown) (no date) (unknown) (unknown) Time spent: Greater than 30 minutes (units unknown) (unknown) (unknown) (no date) (unknown) (unknown) Visit Report/Discharge Packet (units unknown) (unknown) (unknown) (no date) (unknown) (unknown) Vital Signs (units unknown) (unknown) (unknown) (no date) (unknown) (unknown) WBC 4.9 (units unknown) (unknown) (unknown) (no date) (unknown) (unknown) WBC (units unknown) (unknown) (unknown) (no date) (unknown) (unknown) [Embedded Image Not Available] (units unknown) (unknown) (unknown) (no date) (unknown) (unknown) abuse. She was also seen in our ED yesterday for withdrawals and sent home, but (units unknown) (unknown) (unknown) (no date) (unknown) (unknown) admitted for DT withdrawals for 2 days earlier this month and was in the ICU on (units unknown) (unknown) (unknown) (no date) (unknown) (unknown) admitted for substance withdrawal with hallucinations. (units unknown) (unknown) (unknown) (no date) (unknown) (unknown) alcohol intake: current (units unknown) (unknown) (unknown) (no date) (unknown) (unknown) ativan given in ED without good effect, so precedex started. Patient's labs and (units unknown) (unknown) (unknown) (no date) (unknown) (unknown) ativan. She improved after 2 days on 60mg IV pheno and precedex and able to wean (units unknown) (unknown) (unknown) (no date) (unknown) (unknown) because of his malnutrition.? This increases the difficulty and complexity of (units unknown) (unknown) (unknown) (no date) (unknown) (unknown) breathing. I've also sent a month supply of Antabuse. (units unknown) (unknown) (unknown) (no date) (unknown) (unknown) chlordiazepoxide HCl 25 mg capsule (units unknown) (unknown) (unknown) (no date) (unknown) (unknown) current occupational exposures/hazards: Yes (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 with Pandemic ) (units unknown) (unknown) (unknown) (no date) (unknown) (unknown) depression, alcohol abuse and GERD who presents in acute alcohol withdrawals. 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 (units unknown) (unknown) (unknown) (no date) (unknown) (unknown) marital status: (units unknown) (unknown) (unknown) (no date) (unknown) (unknown) medical and surgical interventions and increases the chances of poor outcomes (units unknown) (unknown) (unknown) (no date) (unknown) (unknown) multivitamin with folic acid [Tab-A-Kael] 400 mcg Tablet (units unknown) (unknown) (unknown) (no date) (unknown) (unknown) number of children: 1 (units unknown) (unknown) (unknown) (no date) (unknown) (unknown) occupational status: employed (units unknown) (unknown) (unknown) (no date) (unknown) (unknown) off the precedex. REBECCA Phan evaluated and cleared patient for home. She was sent on a (units unknown) (unknown) (unknown) (no date) (unknown) (unknown) once daily for 2 day s then stop (units unknown) (unknown) (unknown) (no date) (unknown) (unknown) pantoprazole 40 mg Tablet,Delayed Release (Dr/Ec) (units unknown) (unknown) (unknown) (no date) (unknown) (unknown) past/present alcohol abuse of 750 cc vodka/day, 20% wt loss in 1 yr, and (units unknown) (unknown) (unknown) (no date) (unknown) (unknown) precedex drip. Discharged home after she refused inpatient rehab for her alcohol (units unknown) (unknown) (unknown) (no date) (unknown) (unknown) precedex drip. (units unknown) (unknown) (unknown) (no date) (unknown) (unknown) quetiapine 300 mg tablet (units unknown) (unknown) (unknown) (no date) (unknown) (unknown) second hand exposure : No (growing up as a child - not currently) (units unknown) (unknown) (unknown) (no date) (unknown) (unknown) special renee needs: No (units unknown) (unknown) (unknown) (no date) (unknown) (unknown) substance use type: does not use (units unknown) (unknown) (unknown) (no date) (unknown) (unknown) such as morbidity an d mortality. (units unknown) (unknown) (unknown) (no date) (unknown) (unknown) then returned today with hallucinations and severe withdrawals. Phenobarb and (units unknown) (unknown) (unknown) (no date) (unknown) (unknown) thiamine mononitrate (vit B1) 100 mg Tablet (units unknown) (unknown) (unknown) (no date) (unknown) (unknown) to finish at home, but DO NOT drink alcohol while taking it or you could stop (units unknown) (unknown) (unknown) (no date) (unknown) (unknown) vitals are stable. O n my exam in CCU patient is sleeping and calm on max (units unknown) (unknown) (unknown) (no date) (unknown) (unknown) when able to take oral meds (units unknown) (unknown) (unknown) (no date) (unknown) (unknown) withdrawal, resolved (units unknown) (unknown) (unknown) (no date) (unknown) (unknown) withdrawals symptoms would like be out of window. UDS positive benzos, barbs and (units unknown) (unknown) Result panel 2276 (unknown) (no date) (unknown) (unknown) (no value) (units unknown) (unknown) (unknown) (no date) (unknown) (unknown) .COMPLEX #30 caps (units unknown) (unknown) (unknown) (no date) (unknown) (unknown) [id number] (units unknown) (unknown) (unknown) (no date) (unknown) (unknown) 08/08/22 20:30 (units unknown) (unknown) (unknown) (no date) (unknown) (unknown) 08/08/22 20:31 (units unknown) (unknown) (unknown) (no date) (unknown) (unknown) 08/08/22 (units unknown) (unknown) (unknown) (no date) (unknown) (unknown) 1 tab PO DAILY Qty: 30 0RF (units unknown) (unknown) (unknown) (no date) (unknown) (unknown) 10 mg PO DAILY (units unknown) (unknown) (unknown) (no date) (unknown) (unknown) 100 mg PO DAILY Qty: 30 0RF (units unknown) (unknown) (unknown) (no date) (unknown) (unknown) 20:13 (units unknown) (unknown) (unknown) (no date) (unknown) (unknown) 25 mg orally 3 times daily for 2 days, then 2 times daily for 2 days then (units unknown) (unknown) (unknown) (no date) (unknown) (unknown) 250 mg PO DAILY Qty: 30 0RF (units unknown) (unknown) (unknown) (no date) (unknown) (unknown) 300 mg PO DAILY (units unknown) (unknown) (unknown) (no date) (unknown) (unknown) 40 mg PO 0700 Qty: 3 0 0RF (units unknown) (unknown) (unknown) (no date) (unknown) (unknown) 50 mg PO DAILY (units unknown) (unknown) (unknown) (no date) (unknown) (unknown) Age/Sex: 31 / F (units unknown) (unknown) (unknown) (no date) (unknown) (unknown) Alcohol withdrawal delirium, acute, hyperactive (units unknown) (unknown) (unknown) (no date) (unknown) (unknown) Alcoholism (units unknown) (unknown) (unknown) (no date) (unknown) (unknown) Allergies (units unknown) (unknown) (unknown) (no date) (unknown) (unknown) Allergy/AdvReac Type Severity Reaction Status Date / Time (units unknown) (unknown) (unknown) (no date) (unknown) (unknown) Anemia (-2018) (units unknown) (unknown) (unknown) (no date) (unknown) (unknown) COVID19 -Nasal RAPID Stat (units unknown) (unknown) (unknown) (no date) (unknown) (unknown) Chief complaint: Toxicology Problem (units unknown) (unknown) (unknown) (no date) (unknown) (unknown) Complete Blood Count AUTO DIFF Stat (units unknown) (unknown) (unknown) (no date) (unknown) (unknown) Comprehensive Metabolic Panel Stat (units unknown) (unknown) (unknown) (no date) (unknown) (unknown) Course (units unknown) (unknown) (unknown) (no date) (unknown) (unknown) : 1990 Acct:[id number] (units unknown) (unknown) (unknown) (no date) (unknown) (unknown) Date of Service: 08/08/22 (units unknown) (unknown) (unknown) (no date) (unknown) (unknown) Departure (units unknown) (unknown) (unknown) (no date) (unknown) (unknown) Discharge Plan (units unknown) (unknown) (unknown) (no date) (unknown) (unknown) Discontinued Medications (units unknown) (unknown) (unknown) (no date) (unknown) (unknown) ED Orders (units unknown) (unknown) (unknown) (no date) (unknown) (unknown) ER Physician: Will Benitez D.O. (units unknown) (unknown) (unknown) (no date) (unknown) (unknown) Emergency Report (units unknown) (unknown) (unknown) (no date) (unknown) (unknown) Ethanol (ETOH) Stat (units unknown) (unknown) (unknown) (no date) (unknown) (unknown) Exam (units unknown) (unknown) (unknown) (no date) (unknown) (unknown) Family History (units unknown) (unknown) (unknown) (no date) (unknown) (unknown) Family/Other Alcoholism (units unknown) (unknown) (unknown) (no date) (unknown) (unknown) Family/Other Diabete s mellitus (units unknown) (unknown) (unknown) (no date) (unknown) (unknown) Father Alcoholism (units unknown) (unknown) (unknown) (no date) (unknown) (unknown) Tonia Schneider MD [Primary Care Provider] (units unknown) (unknown) (unknown) (no date) (unknown) (unknown) General (units unknown) (unknown) (unknown) (no date) (unknown) (unknown) Grandfather Smoker (units unknown) (unknown) (unknown) (no date) (unknown) (unknown) Grandfather Unknown whether patient has any health problems (units unknown) (unknown) (unknown) (no date) (unknown) (unknown) Grandmother Diabetes mellitus (units unknown) (unknown) (unknown) (no date) (unknown) (unknown) Grandmother Hypoglycemia (units unknown) (unknown) (unknown) (no date) (unknown) (unknown) H/O dilation and curettage (-12/14/16) (units unknown) (unknown) (unknown) (no date) (unknown) (unknown) H/O wisdom tooth extraction () (units unknown) (unknown) (unknown) (no date) (unknown) (unknown) HPI - General Adult (units unknown) (unknown) (unknown) (no date) (unknown) (unknown) Home Medications (units unknown) (unknown) (unknown) (no date) (unknown) (unknown) Initial Vital Signs (units unknown) (unknown) (unknown) (no date) (unknown) (unknown) Initial Vital Signs: (units unknown) (unknown) (unknown) (no date) (unknown) (unknown) Insomnia (units unknown) (unknown) (unknown) (no date) (unknown) (unknown) [address] [address] (units unknown) (unknown) (unknown) (no date) (unknown) (unknown) Lipase Stat (units unknown) (unknown) (unknown) (no date) (unknown) (unknown) Medical History (units unknown) (unknown) (unknown) (no date) (unknown) (unknown) Medication Instructions Recorded Confirmed (units unknown) (unknown) (unknown) (no date) (unknown) (unknown) Medication Instructions Recorded (units unknown) (unknown) (unknown) (no date) (unknown) (unknown) Menometrorrhagia (units unknown) (unknown) (unknown) (no date) (unknown) (unknown) Mode of arrival: Ambulatory (units unknown) (unknown) (unknown) (no date) (unknown) (unknown) Mother Diabetes mellitus (units unknown) (unknown) (unknown) (no date) (unknown) (unknown) No Action (units unknown) (unknown) (unknown) (no date) (unknown) (unknown) Obesity (units unknown) (unknown) (unknown) (no date) (unknown) (unknown) Ordered: (units unknown) (unknown) (unknown) (no date) (unknown) (unknown) Orders (units unknown) (unknown) (unknown) (no date) (unknown) (unknown) Overweight (units unknown) (unknown) (unknown) (no date) (unknown) (unknown) Oxygen Delivery Method Room Air 08/08/22 20:13 (units unknown) (unknown) (unknown) (no date) (unknown) (unknown) Oxygen Delivery Method Room Air (units unknown) (unknown) (unknown) (no date) (unknown) (unknown) Patient History (units unknown) (unknown) (unknown) (no date) (unknown) (unknown) Patient: Sarah Connors MR#: M (units unknown) (unknown) (unknown) (no date) (unknown) (unknown) Test Urine Stat (units unknown) (unknown) (unknown) (no date) (unknown) (unknown) Prescriptions: (units unknown) (unknown) (unknown) (no date) (unknown) (unknown) Previous Rx's (units unknown) (unknown) (unknown) (no date) (unknown) (unknown) Pulse Oximetry 96 08/08/22 20:13 (units unknown) (unknown) (unknown) (no date) (unknown) (unknown) Pulse Oximetry 96 (units unknown) (unknown) (unknown) (no date) (unknown) (unknown) Pulse Rate 100 H 08/08/22 20:13 (units unknown) (unknown) (unknown) (no date) (unknown) (unknown) Pulse Rate 100 H (units unknown) (unknown) (unknown) (no date) (unknown) (unknown) Referrals: (units unknown) (unknown) (unknown) (no date) (unknown) (unknown) Related Data (units unknown) (unknown) (unknown) (no date) (unknown) (unknown) Respiratory Rate 20 08/08/22 20:13 (units unknown) (unknown) (unknown) (no date) (unknown) (unknown) Respiratory Rate 20 (units unknown) (unknown) (unknown) (no date) (unknown) (unknown) Rx Instructions: (units unknown) (unknown) (unknown) (no date) (unknown) (unknown) S/P myringotomy with insertion of tube (units unknown) (unknown) (unknown) (no date) (unknown) (unknown) (spontaneous vaginal delivery) (-09/05/18) (units unknown) (unknown) (unknown) (no date) (unknown) (unknown) See Rx Instructions .ROUTE .COMPLEX Qty: 30 0RF (units unknown) (unknown) (unknown) (no date) (unknown) (unknown) Signed By: (units unknown) (unknown) (unknown) (no date) (unknown) (unknown) Smoker (units unknown) (unknown) (unknown) (no date) (unknown) (unknown) Smoking Status: Former smoker (units unknown) (unknown) (unknown) (no date) (unknown) (unknown) Social History (units unknown) (unknown) (unknown) (no date) (unknown) (unknown) Source: other (units unknown) (unknown) (unknown) (no date) (unknown) (unknown) Stated complaint: needs to detox (units unknown) (unknown) (unknown) (no date) (unknown) (unknown) Stop: 08/08/22 20:30 (units unknown) (unknown) (unknown) (no date) (unknown) (unknown) Substance Use Type: does not use (units unknown) (unknown) (unknown) (no date) (unknown) (unknown) Surgical History (units unknown) (unknown) (unknown) (no date) (unknown) (unknown) Temperature 98 F 08/08/22 20:13 (units unknown) (unknown) (unknown) (no date) (unknown) (unknown) Temperature 98 F (units unknown) (unknown) (unknown) (no date) (unknown) (unknown) Thiamine HCl 100 mg/ Sodium (Chloride) 101 mls @ 404 mls/hr IV NOW ONE (units unknown) (unknown) (unknown) (no date) (unknown) (unknown) Time Seen by Provider: 08/08/22 20:27 (units unknown) (unknown) (unknown) (no date) (unknown) (unknown) Urinalysis and Microscopic Stat (units unknown) (unknown) (unknown) (no date) (unknown) (unknown) Urine Drug Screen, Rapid Stat (units unknown) (unknown) (unknown) (no date) (unknown) (unknown) Vital Signs - 8 hr (units unknown) (unknown) (unknown) (no date) (unknown) (unknown) Vital Signs (units unknown) (unknown) (unknown) (no date) (unknown) (unknown) Vital signs: (units unknown) (unknown) (unknown) (no date) (unknown) (unknown) [METOCLOPRAMIDE] (units unknown) (unknown) (unknown) (no date) (unknown) (unknown) alcohol intake frequency: 3 or more drinks per day (units unknown) (unknown) (unknown) (no date) (unknown) (unknown) alcohol intake: current (units unknown) (unknown) (unknown) (no date) (unknown) (unknown) chlordiazepoxide HCl 25 mg capsule See Rx Instructions .Route 08/03/22 (units unknown) (unknown) (unknown) (no date) (unknown) (unknown) chlordiazepoxide HCl 25 mg capsule (units unknown) (unknown) (unknown) (no date) (unknown) (unknown) current occupational exposures/hazards: Yes (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 with Pandemic ) (units unknown) (unknown) (unknown) (no date) (unknown) (unknown) disulfiram 250 mg tablet 250 mg PO DAILY #30 tabs 08/03/22 (units unknown) (unknown) (unknown) (no date) (unknown) (unknown) disulfiram 250 mg tablet (units unknown) (unknown) (unknown) (no date) (unknown) (unknown) education level: college 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[employer] (units unknown) (unknown) (unknown) (no date) (unknown) (unknown) fluoxetine 10 mg capsule 10 mg PO DAILY 07/13/22 08/01/22 (units unknown) (unknown) (unknown) (no date) (unknown) (unknown) fluoxetine 10 mg capsule (units unknown) (unknown) (unknown) (no date) (unknown) (unknown) household members: significant other (units unknown) (unknown) (unknown) (no date) (unknown) (unknown) hydrocodone [HYDROCODONE] AdvReac Unknown VOMITING Verified 07/12/22 16:18 (units unknown) (unknown) (unknown) (no date) (unknown) (unknown) hydroxyzine HCl 50 m g tablet 50 mg PO DAILY 07/13/22 08/01/22 (units unknown) (unknown) (unknown) (no date) (unknown) (unknown) hydroxyzine HCl 50 m g tablet (units unknown) (unknown) (unknown) (no date) (unknown) (unknown) marital status: (units unknown) (unknown) (unknown) (no date) (unknown) (unknown) mcg tablet (Tab-A-Kael) (units unknown) (unknown) (unknown) (no date) (unknown) (unknown) metoclopramide Allergy Mild RASH/HIVES Verified 07/12/22 16:18 (units unknown) (unknown) (unknown) (no date) (unknown) (unknown) mg tablet (units unknown) (unknown) (unknown) (no date) (unknown) (unknown) multivitamin with folic acid 400 1 tab PO DAILY #30 tabs 07/14/22 (units unknown) (unknown) (unknown) (no date) (unknown) (unknown) multivitamin with folic acid [Tab-A-Kael] 400 mcg Tablet (units unknown) (unknown) (unknown) (no date) (unknown) (unknown) number of children: 1 (units unknown) (unknown) (unknown) (no date) (unknown) (unknown) occupational status: employed (units unknown) (unknown) (unknown) (no date) (unknown) (unknown) once daily for 2 day s then stop (units unknown) (unknown) (unknown) (no date) (unknown) (unknown) pantoprazole 40 mg Tablet,Delayed Release (Dr/Ec) (units unknown) (unknown) (unknown) (no date) (unknown) (unknown) pantoprazole 40 mg tablet,delayed 40 mg PO 0700 #30 tabs 07/14/22 (units unknown) (unknown) (unknown) (no date) (unknown) (unknown) quetiapine 300 mg tablet 300 mg PO DAILY 07/13/22 08/01/22 (units unknown) (unknown) (unknown) (no date) (unknown) (unknown) quetiapine 300 mg tablet (units unknown) (unknown) (unknown) (no date) (unknown) (unknown) release (units unknown) (unknown) (unknown) (no date) (unknown) (unknown) second hand exposure : No (growing up as a child - not currently) (units unknown) (unknown) (unknown) (no date) (unknown) (unknown) special renee needs: No (units unknown) (unknown) (unknown) (no date) (unknown) (unknown) substance use type: does not use (units unknown) (unknown) (unknown) (no date) (unknown) (unknown) thiamine mononitrate (vit B1) 100 100 mg PO DAILY #30 tabs 07/14/22 (units unknown) (unknown) (unknown) (no date) (unknown) (unknown) thiamine mononitrate (vit B1) 100 mg Tablet (units unknown) (unknown) Result panel 2277 (unknown) (no date) (unknown) (unknown) 0 /ul (unknown) (unknown) (no date) (unknown) (unknown) 0.8 % (unknown) (unknown) (no date) (unknown) (unknown) 100 /ul (unknown) (unknown) (no date) (unknown) (unknown) 11.9 g/dl (unknown) (unknown) (no date) (unknown) (unknown) 19.7 % (unknown) (unknown) (no date) (unknown) (unknown) 1900 /ul (unknown) (unknown) (no date) (unknown) (unknown) 2.5 % (unknown) (unknown) (no date) (unknown) (unknown) 25.7 pg (unknown) (unknown) (no date) (unknown) (unknown) 2600 /ul (unknown) (unknown) (no date) (unknown) (unknown) 32.1 % (unknown) (unknown) (no date) (unknown) (unknown) 36.6 % (unknown) (unknown) (no date) (unknown) (unknown) 37.0 % (unknown) (unknown) (no date) (unknown) (unknown) 396 x10 3/ul (unknown) (unknown) (no date) (unknown) (unknown) 4.61 x10 6/ul (unknown) (unknown) (no date) (unknown) (unknown) 400 /ul (unknown) (unknown) (no date) (unknown) (unknown) 5.1 x10 3/ul (unknown) (unknown) (no date) (unknown) (unknown) 51.5 % (unknown) (unknown) (no date) (unknown) (unknown) 8.6 % (unknown) (unknown) (no date) (unknown) (unknown) 80.2 fl (unknown) Result panel 2278 (unknown) (no date) (unknown) (unknown) > 60 ml/min (unknown) (unknown) (no date) (unknown) (unknown) > 60 ml/min (unknown) (unknown) (no date) (unknown) (unknown) 0.4 mg/dl (unknown) (unknown) (no date) (unknown) (unknown) 0.76 mg/dl (unknown) (unknown) (no date) (unknown) (unknown) 1.3 (units unknown) (unknown) (unknown) (no date) (unknown) (unknown) 104 mmol/l (unknown) (unknown) (no date) (unknown) (unknown) 148 mmol/l (unknown) (unknown) (no date) (unknown) (unknown) 148 mmol/l (unknown) (unknown) (no date) (unknown) (unknown) 3.3 g/dl (unknown) (unknown) (no date) (unknown) (unknown) 3.6 mmol/l (unknown) (unknown) (no date) (unknown) (unknown) 33 mmol/l (unknown) (unknown) (no date) (unknown) (unknown) 4.4 g/dl (unknown) (unknown) (no date) (unknown) (unknown) 424 iu/l (unknown) (unknown) (no date) (unknown) (unknown) 64 iu/l (unknown) (unknown) (no date) (unknown) (unknown) 7 mg/dl (unknown) (unknown) (no date) (unknown) (unknown) 7.7 g/dl (unknown) (unknown) (no date) (unknown) (unknown) 71 u/l (unknown) (unknown) (no date) (unknown) (unknown) 8.4 mg/dl (unknown) (unknown) (no date) (unknown) (unknown) 9.2 (units unknown) (unknown) (unknown) (no date) (unknown) (unknown) 92 mg/dl (unknown) (unknown) (no date) (unknown) (unknown) 92 mg/dl (unknown) Result panel 2279 (unknown) (no date) (unknown) (unknown) 408 u/l (unknown) Result panel 2280 (unknown) (no date) (unknown) (unknown) 393 mg/dl (unknown) (unknown) (no date) (unknown) (unknown) 393 mg/dl (unknown) (unknown) (no date) (unknown) (unknown) 408 u/l (unknown) Result panel 2281 (unknown) (no date) (unknown) (unknown) 2.2 mg/dl (unknown) (unknown) (no date) (unknown) (unknown) 2.2 mg/dl (unknown) Result panel 2282 (unknown) (no date) (unknown) (unknown) (no value) (units unknown) (unknown) (unknown) (no date) (unknown) (unknown) 'Current medications ' to include all prescriptions, [id number]-foedbtp products, (units unknown) (unknown) (unknown) (no date) (unknown) (unknown) (nutritional) supplements. (units unknown) (unknown) (unknown) (no date) (unknown) (unknown) (past 8 hours): (units unknown) (unknown) (unknown) (no date) (unknown) (unknown) -SW consult (units unknown) (unknown) (unknown) (no date) (unknown) (unknown) -continue PPI (units unknown) (unknown) (unknown) (no date) (unknown) (unknown) -continue ciwa protocol, with ativan, start librium 50mg q6, ordered precedex (units unknown) (unknown) (unknown) (no date) (unknown) (unknown) -continue prozac (units unknown) (unknown) (unknown) (no date) (unknown) (unknown) -continue to trend (units unknown) (unknown) (unknown) (no date) (unknown) (unknown) -each time she has refused rehab (units unknown) (unknown) (unknown) (no date) (unknown) (unknown) -follow up urine cultures (units unknown) (unknown) (unknown) (no date) (unknown) (unknown) -multiple admissions and hospital visits for alcohol withdrawal within the last (units unknown) (unknown) (unknown) (no date) (unknown) (unknown) -ordered for high dose thiamine for prevention/treatment of wernicke's (units unknown) (unknown) (unknown) (no date) (unknown) (unknown) -per ED she is requesting detox after drinking heavily after discharge (units unknown) (unknown) (unknown) (no date) (unknown) (unknown) -per ED she was hallucinating and agitated on arrival, received phenobarbital (units unknown) (unknown) (unknown) (no date) (unknown) (unknown) -she was just discharged 5 days ago, refusing rehab (units unknown) (unknown) (unknown) (no date) (unknown) (unknown) -suspect secondary t o alcohol withdrawal and phenobarbital and treat as above (units unknown) (unknown) (unknown) (no date) (unknown) (unknown) -unable to discuss with patient on admission as she is sedated (units unknown) (unknown) (unknown) (no date) (unknown) (unknown) .COMPLEX #30 caps (units unknown) (unknown) (unknown) (no date) (unknown) (unknown) [id number] (units unknown) (unknown) (unknown) (no date) (unknown) (unknown) 08/08/22 08/08/22 08/08/22 (units unknown) (unknown) (unknown) (no date) (unknown) (unknown) 08/08/22 21:00 (units unknown) (unknown) (unknown) (no date) (unknown) (unknown) 08/08/22 (units unknown) (unknown) (unknown) (no date) (unknown) (unknown) 1. Acute alcohol withdrawal with DTs (units unknown) (unknown) (unknown) (no date) (unknown) (unknown) 14 systems reviewed and negative aside from what is noted in HPI (units unknown) (unknown) (unknown) (no date) (unknown) (unknown) 2. Acute encephalopathy (units unknown) (unknown) (unknown) (no date) (unknown) (unknown) 20:13 (units unknown) (unknown) (unknown) (no date) (unknown) (unknown) 21:00 21:00 21:00 (units unknown) (unknown) (unknown) (no date) (unknown) (unknown) 3. Depression and anxiety (units unknown) (unknown) (unknown) (no date) (unknown) (unknown) 4. Anemia, chronic (units unknown) (unknown) (unknown) (no date) (unknown) (unknown) 5. GERD (units unknown) (unknown) (unknown) (no date) (unknown) (unknown) ABD: soft, nontender , nondistended, no organomegaly (units unknown) (unknown) (unknown) (no date) (unknown) (unknown) ALT 64 H (units unknown) (unknown) (unknown) (no date) (unknown) (unknown) AST 424 H (units unknown) (unknown) (unknown) (no date) (unknown) (unknown) Age/Sex: 31 / F (units unknown) (unknown) (unknown) (no date) (unknown) (unknown) Albumin 4.4 (units unknown) (unknown) (unknown) (no date) (unknown) (unknown) Albumin/Globulin Ratio 1.3 (units unknown) (unknown) (unknown) (no date) (unknown) (unknown) Alcohol withdrawal delirium, acute, hyperactive (units unknown) (unknown) (unknown) (no date) (unknown) (unknown) Alcoholism (units unknown) (unknown) (unknown) (no date) (unknown) (unknown) Alkaline Phosphatase 71 (units unknown) (unknown) (unknown) (no date) (unknown) (unknown) Allergies (units unknown) (unknown) (unknown) (no date) (unknown) (unknown) Allergy/AdvReac Type Severity Reaction Status Date / Time (units unknown) (unknown) (unknown) (no date) (unknown) (unknown) Anemia (-2018) (units unknown) (unknown) (unknown) (no date) (unknown) (unknown) Assessment + Plan narrative: (units unknown) (unknown) (unknown) (no date) (unknown) (unknown) Assessment + Plan (units unknown) (unknown) (unknown) (no date) (unknown) (unknown) BUN 7 (units unknown) (unknown) (unknown) (no date) (unknown) (unknown) BUN/Creatinine Ratio 9.2 (units unknown) (unknown) (unknown) (no date) (unknown) (unknown) Baso # (Auto) 100 (units unknown) (unknown) (unknown) (no date) (unknown) (unknown) Baso % (Auto) 2.5 H (units unknown) (unknown) (unknown) (no date) (unknown) (unknown) CODE: Full (units unknown) (unknown) (unknown) (no date) (unknown) (unknown) CV: regular rate and rhythm, no murmurs (units unknown) (unknown) (unknown) (no date) (unknown) (unknown) Calcium 8.4 (units unknown) (unknown) (unknown) (no date) (unknown) (unknown) Carbon Dioxide 33 H (units unknown) (unknown) (unknown) (no date) (unknown) (unknown) Chief complaint: needs to detox (units unknown) (unknown) (unknown) (no date) (unknown) (unknown) Chloride 104 (units unknown) (unknown) (unknown) (no date) (unknown) (unknown) Creatinine 0.76 (units unknown) (unknown) (unknown) (no date) (unknown) (unknown) : 1990 Acct:[id number] (units unknown) (unknown) (unknown) (no date) (unknown) (unknown) Date of Service: 08/08/22 (units unknown) (unknown) (unknown) (no date) (unknown) (unknown) EXT: warm and well perfused with no edema (units unknown) (unknown) (unknown) (no date) (unknown) (unknown) Eos # (Auto) 0 (units unknown) (unknown) (unknown) (no date) (unknown) (unknown) Eos % (Auto) 0.8 L (units unknown) (unknown) (unknown) (no date) (unknown) (unknown) Estimated GFR > 60 (units unknown) (unknown) (unknown) (no date) (unknown) (unknown) Ethyl Alcohol 393 H (units unknown) (unknown) (unknown) (no date) (unknown) (unknown) Exam Narrative: (units unknown) (unknown) (unknown) (no date) (unknown) (unknown) Exam (units unknown) (unknown) (unknown) (no date) (unknown) (unknown) Family History (units unknown) (unknown) (unknown) (no date) (unknown) (unknown) Family/Other Alcoholism (units unknown) (unknown) (unknown) (no date) (unknown) (unknown) Family/Other Diabete s mellitus (units unknown) (unknown) (unknown) (no date) (unknown) (unknown) Father Alcoholism (units unknown) (unknown) (unknown) (no date) (unknown) (unknown) GEN: sedated, sleeping (units unknown) (unknown) (unknown) (no date) (unknown) (unknown) Globulin 3.3 (units unknown) (unknown) (unknown) (no date) (unknown) (unknown) Glucose 92 (units unknown) (unknown) (unknown) (no date) (unknown) (unknown) Grandfather Smoker (units unknown) (unknown) (unknown) (no date) (unknown) (unknown) Grandfather Unknown whether patient has any health problems (units unknown) (unknown) (unknown) (no date) (unknown) (unknown) Grandmother Diabetes mellitus (units unknown) (unknown) (unknown) (no date) (unknown) (unknown) Grandmother Hypoglycemia (units unknown) (unknown) (unknown) (no date) (unknown) (unknown) H/O dilation and curettage (-12/14/16) (units unknown) (unknown) (unknown) (no date) (unknown) (unknown) H/O wisdom tooth extraction () (units unknown) (unknown) (unknown) (no date) (unknown) (unknown) HEENT: moist mucous membranes, PERRL (units unknown) (unknown) (unknown) (no date) (unknown) (unknown) Hct 37.0 (units unknown) (unknown) (unknown) (no date) (unknown) (unknown) Hgb 11.9 L (units unknown) (unknown) (unknown) (no date) (unknown) (unknown) History + Physical Report (units unknown) (unknown) (unknown) (no date) (unknown) (unknown) History of Present Illness (units unknown) (unknown) (unknown) (no date) (unknown) (unknown) Home Medications and Allergies (units unknown) (unknown) (unknown) (no date) (unknown) (unknown) Home Medications (units unknown) (unknown) (unknown) (no date) (unknown) (unknown) I have utilized all available resources to obtain, update, or review the (units unknown) (unknown) (unknown) (no date) (unknown) (unknown) Insomnia (units unknown) (unknown) (unknown) (no date) (unknown) (unknown) [address] [address] (units unknown) (unknown) (unknown) (no date) (unknown) (unknown) Laboratory Results - last 24 hr (units unknown) (unknown) (unknown) (no date) (unknown) (unknown) Labs (units unknown) (unknown) (unknown) (no date) (unknown) (unknown) Labs: (units unknown) (unknown) (unknown) (no date) (unknown) (unknown) Lipase 408 H (units unknown) (unknown) (unknown) (no date) (unknown) (unknown) Lymph # (Auto) 2600 (units unknown) (unknown) (unknown) (no date) (unknown) (unknown) Lymph % (Auto) 51.5 H (units unknown) (unknown) (unknown) (no date) (unknown) (unknown) MCH 25.7 L (units unknown) (unknown) (unknown) (no date) (unknown) (unknown) MCHC 32.1 (units unknown) (unknown) (unknown) (no date) (unknown) (unknown) MCV 80.2 (units unknown) (unknown) (unknown) (no date) (unknown) (unknown) MIPS - Meds (units unknown) (unknown) (unknown) (no date) (unknown) (unknown) Medical History (units unknown) (unknown) (unknown) (no date) (unknown) (unknown) Medication Instructions Recorded Confirmed Type (units unknown) (unknown) (unknown) (no date) (unknown) (unknown) Meds (units unknown) (unknown) (unknown) (no date) (unknown) (unknown) Menometrorrhagia (units unknown) (unknown) (unknown) (no date) (unknown) (unknown) [place] # (Auto) 400 (units unknown) (unknown) (unknown) (no date) (unknown) (unknown) [place] % (Auto) 8.6 (units unknown) (unknown) (unknown) (no date) (unknown) (unknown) Mother Diabetes mellitus (units unknown) (unknown) (unknown) (no date) (unknown) (unknown) NECK: trachea midline, no JVD (units unknown) (unknown) (unknown) (no date) (unknown) (unknown) NEURO: sleepy, sedated, moving all extremities, no focal deficits noted (units unknown) (unknown) (unknown) (no date) (unknown) (unknown) Narrative (units unknown) (unknown) (unknown) (no date) (unknown) (unknown) Narrative: (units unknown) (unknown) (unknown) (no date) (unknown) (unknown) Neut # (Auto) 1900 (units unknown) (unknown) (unknown) (no date) (unknown) (unknown) Neut % (Auto) 36.6 L (units unknown) (unknown) (unknown) (no date) (unknown) (unknown) Obesity (units unknown) (unknown) (unknown) (no date) (unknown) (unknown) Objective (units unknown) (unknown) (unknown) (no date) (unknown) (unknown) Overweight (units unknown) (unknown) (unknown) (no date) (unknown) (unknown) Oxygen Delivery Method Room Air (units unknown) (unknown) (unknown) (no date) (unknown) (unknown) PFSH (units unknown) (unknown) (unknown) (no date) (unknown) (unknown) PULM: clear bilaterally, no wheezes, rhonchi, rales (units unknown) (unknown) (unknown) (no date) (unknown) (unknown) Patient: Sarah Connors MR#: M (units unknown) (unknown) (unknown) (no date) (unknown) (unknown) Plt Count 396 (units unknown) (unknown) (unknown) (no date) (unknown) (unknown) Potassium 3.6 (units unknown) (unknown) (unknown) (no date) (unknown) (unknown) Provider: Raymond Aguilera MD (units unknown) (unknown) (unknown) (no date) (unknown) (unknown) Proxy: Rober Connors, spouse (units unknown) (unknown) (unknown) (no date) (unknown) (unknown) Pulse Oximetry 96 (units unknown) (unknown) (unknown) (no date) (unknown) (unknown) Pulse Rate 100 H (units unknown) (unknown) (unknown) (no date) (unknown) (unknown) Quality (units unknown) (unknown) (unknown) (no date) (unknown) (unknown) RBC 4.61 (units unknown) (unknown) (unknown) (no date) (unknown) (unknown) RDW 19.7 H (units unknown) (unknown) (unknown) (no date) (unknown) (unknown) Respiratory Rate 20 (units unknown) (unknown) (unknown) (no date) (unknown) (unknown) Review of Systems (units unknown) (unknown) (unknown) (no date) (unknown) (unknown) S/P myringotomy with insertion of tube (units unknown) (unknown) (unknown) (no date) (unknown) (unknown) (spontaneous vaginal delivery) (-09/05/18) (units unknown) (unknown) (unknown) (no date) (unknown) (unknown) Signed By: (units unknown) (unknown) (unknown) (no date) (unknown) (unknown) Smoker (units unknown) (unknown) (unknown) (no date) (unknown) (unknown) Smoking Status: Former smoker (units unknown) (unknown) (unknown) (no date) (unknown) (unknown) Social History (units unknown) (unknown) (unknown) (no date) (unknown) (unknown) Sodium 148 H D (units unknown) (unknown) (unknown) (no date) (unknown) (unknown) Surgical History (units unknown) (unknown) (unknown) (no date) (unknown) (unknown) Temperature 98 F (units unknown) (unknown) (unknown) (no date) (unknown) (unknown) Total Bilirubin 0.4 (units unknown) (unknown) (unknown) (no date) (unknown) (unknown) Total Protein 7.7 (units unknown) (unknown) (unknown) (no date) (unknown) (unknown) Vital Signs (units unknown) (unknown) (unknown) (no date) (unknown) (unknown) WBC 5.1 (units unknown) (unknown) (unknown) (no date) (unknown) (unknown) [Embedded Image Not Available] (units unknown) (unknown) (unknown) (no date) (unknown) (unknown) [METOCLOPRAMIDE] (units unknown) (unknown) (unknown) (no date) (unknown) (unknown) alcohol intake: current (units unknown) (unknown) (unknown) (no date) (unknown) (unknown) and place in ICU (units unknown) (unknown) (unknown) (no date) (unknown) (unknown) chlordiazepoxide HCl 25 mg capsule See Rx Instructions .Route 08/03/22 Rx (units unknown) (unknown) (unknown) (no date) (unknown) (unknown) current occupational exposures/hazards: Yes (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 with Pandemic ) (units unknown) (unknown) (unknown) (no date) (unknown) (unknown) disulfiram 250 mg tablet 250 mg PO DAILY #30 tabs 08/03/22 Rx (units unknown) (unknown) (unknown) (no date) (unknown) (unknown) education level: college 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[employer] (units unknown) (unknown) (unknown) (no date) (unknown) (unknown) fluoxetine 10 mg capsule 10 mg PO DAILY 07/13/22 08/01/22 History (units unknown) (unknown) (unknown) (no date) (unknown) (unknown) herbals, cannabis/cannabidiol products, and vitamin/mineral/dieta ry (units unknown) (unknown) (unknown) (no date) (unknown) (unknown) household members: significant other (units unknown) (unknown) (unknown) (no date) (unknown) (unknown) hydrocodone [HYDROCODONE] AdvReac Unknown VOMITING Verified 07/12/22 16:18 (units unknown) (unknown) (unknown) (no date) (unknown) (unknown) hydroxyzine HCl 50 m g tablet 50 mg PO DAILY 07/13/22 08/01/22 History (units unknown) (unknown) (unknown) (no date) (unknown) (unknown) marital status: (units unknown) (unknown) (unknown) (no date) (unknown) (unknown) mcg tablet (Tab-A-Kael) (units unknown) (unknown) (unknown) (no date) (unknown) (unknown) metoclopramide Allergy Mild RASH/HIVES Verified 07/12/22 16:18 (units unknown) (unknown) (unknown) (no date) (unknown) (unknown) mg tablet (units unknown) (unknown) (unknown) (no date) (unknown) (unknown) month (units unknown) (unknown) (unknown) (no date) (unknown) (unknown) multivitamin with folic acid 400 1 tab PO DAILY #30 tabs 07/14/22 08/01/22 Rx (units unknown) (unknown) (unknown) (no date) (unknown) (unknown) number of children: 1 (units unknown) (unknown) (unknown) (no date) (unknown) (unknown) occupational status: employed (units unknown) (unknown) (unknown) (no date) (unknown) (unknown) pantoprazole 40 mg tablet,delayed 40 mg PO 0700 #30 tabs 07/14/22 08/01/22 Rx (units unknown) (unknown) (unknown) (no date) (unknown) (unknown) patient?s current medications. [If Yes, STOP here]: Yes (units unknown) (unknown) (unknown) (no date) (unknown) (unknown) quetiapine 300 mg tablet 300 mg PO DAILY 07/13/22 08/01/22 History (units unknown) (unknown) (unknown) (no date) (unknown) (unknown) release (units unknown) (unknown) (unknown) (no date) (unknown) (unknown) second hand exposure : No (growing up as a child - not currently) (units unknown) (unknown) (unknown) (no date) (unknown) (unknown) special renee needs: No (units unknown) (unknown) (unknown) (no date) (unknown) (unknown) substance use type: does not use (units unknown) (unknown) (unknown) (no date) (unknown) (unknown) thiamine mononitrate (vit B1) 100 100 mg PO DAILY #30 tabs 07/14/22 08/01/22 Rx (units unknown) (unknown) Result panel 2283 (unknown) (no date) (unknown) (unknown) (no value) (units unknown) (unknown) (unknown) (no date) (unknown) (unknown) 'Current medications ' to include all prescriptions, wluj-hnv-iyxtobx products, (units unknown) (unknown) (unknown) (no date) (unknown) (unknown) (nutritional) supplements. (units unknown) (unknown) (unknown) (no date) (unknown) (unknown) (past 8 hours): (units unknown) (unknown) (unknown) (no date) (unknown) (unknown) -SW consult (units unknown) (unknown) (unknown) (no date) (unknown) (unknown) -continue PPI (units unknown) (unknown) (unknown) (no date) (unknown) (unknown) -continue ciwa protocol, with ativan, start librium 50mg q6, ordered precedex (units unknown) (unknown) (unknown) (no date) (unknown) (unknown) -continue prozac (units unknown) (unknown) (unknown) (no date) (unknown) (unknown) -continue to trend (units unknown) (unknown) (unknown) (no date) (unknown) (unknown) -each time she has refused rehab (units unknown) (unknown) (unknown) (no date) (unknown) (unknown) -follow up urine cultures (units unknown) (unknown) (unknown) (no date) (unknown) (unknown) -likely secondary to inadequate PO intake due to alcoholism (units unknown) (unknown) (unknown) (no date) (unknown) (unknown) -multiple admissions and hospital visits for alcohol withdrawal within the last (units unknown) (unknown) (unknown) (no date) (unknown) (unknown) -ordered for high dose thiamine for prevention/treatment of wernicke's (units unknown) (unknown) (unknown) (no date) (unknown) (unknown) -per ED she is requesting detox after drinking heavily after discharge (units unknown) (unknown) (unknown) (no date) (unknown) (unknown) -per ED she was hallucinating and agitated on arrival, received phenobarbital (units unknown) (unknown) (unknown) (no date) (unknown) (unknown) -she was just discharged 5 days ago, refusing rehab (units unknown) (unknown) (unknown) (no date) (unknown) (unknown) -suspect secondary t o alcohol withdrawal and phenobarbital and treat as above (units unknown) (unknown) (unknown) (no date) (unknown) (unknown) -trend daily (units unknown) (unknown) (unknown) (no date) (unknown) (unknown) -unable to discuss with patient on admission as she is sedated (units unknown) (unknown) (unknown) (no date) (unknown) (unknown) .COMPLEX #30 caps (units unknown) (unknown) (unknown) (no date) (unknown) (unknown) [id number] (units unknown) (unknown) (unknown) (no date) (unknown) (unknown) 08/08/22 08/08/22 08/08/22 (units unknown) (unknown) (unknown) (no date) (unknown) (unknown) 08/08/22 21:00 (units unknown) (unknown) (unknown) (no date) (unknown) (unknown) 08/08/22 (units unknown) (unknown) (unknown) (no date) (unknown) (unknown) 1. Acute alcohol withdrawal with DTs (units unknown) (unknown) (unknown) (no date) (unknown) (unknown) 14 systems reviewed and negative aside from what is noted in HPI (units unknown) (unknown) (unknown) (no date) (unknown) (unknown) 2. Acute encephalopathy (units unknown) (unknown) (unknown) (no date) (unknown) (unknown) 20:13 (units unknown) (unknown) (unknown) (no date) (unknown) (unknown) 21:00 21:00 21:00 (units unknown) (unknown) (unknown) (no date) (unknown) (unknown) 3. Hypernatremia (units unknown) (unknown) (unknown) (no date) (unknown) (unknown) 4. Depression and anxiety (units unknown) (unknown) (unknown) (no date) (unknown) (unknown) 5. Anemia, chronic (units unknown) (unknown) (unknown) (no date) (unknown) (unknown) 6. GERD (units unknown) (unknown) (unknown) (no date) (unknown) (unknown) ABD: soft, nontender , nondistended, no organomegaly (units unknown) (unknown) (unknown) (no date) (unknown) (unknown) ALT 64 H (units unknown) (unknown) (unknown) (no date) (unknown) (unknown) AST 424 H (units unknown) (unknown) (unknown) (no date) (unknown) (unknown) Age/Sex: 31 / F (units unknown) (unknown) (unknown) (no date) (unknown) (unknown) Albumin 4.4 (units unknown) (unknown) (unknown) (no date) (unknown) (unknown) Albumin/Globulin Ratio 1.3 (units unknown) (unknown) (unknown) (no date) (unknown) (unknown) Alcohol withdrawal delirium, acute, hyperactive (units unknown) (unknown) (unknown) (no date) (unknown) (unknown) Alcoholism (units unknown) (unknown) (unknown) (no date) (unknown) (unknown) Alkaline Phosphatase 71 (units unknown) (unknown) (unknown) (no date) (unknown) (unknown) Allergies (units unknown) (unknown) (unknown) (no date) (unknown) (unknown) Allergy/AdvReac Type Severity Reaction Status Date / Time (units unknown) (unknown) (unknown) (no date) (unknown) (unknown) Anemia (-2018) (units unknown) (unknown) (unknown) (no date) (unknown) (unknown) Assessment + Plan narrative: (units unknown) (unknown) (unknown) (no date) (unknown) (unknown) Assessment + Plan (units unknown) (unknown) (unknown) (no date) (unknown) (unknown) BUN 7 (units unknown) (unknown) (unknown) (no date) (unknown) (unknown) BUN/Creatinine Ratio 9.2 (units unknown) (unknown) (unknown) (no date) (unknown) (unknown) [place] # (Auto) 100 (units unknown) (unknown) (unknown) (no date) (unknown) (unknown) Baso % (Auto) 2.5 H (units unknown) (unknown) (unknown) (no date) (unknown) (unknown) CODE: Full (units unknown) (unknown) (unknown) (no date) (unknown) (unknown) CV: regular rate and rhythm, no murmurs (units unknown) (unknown) (unknown) (no date) (unknown) (unknown) Calcium 8.4 (units unknown) (unknown) (unknown) (no date) (unknown) (unknown) Carbon Dioxide 33 H (units unknown) (unknown) (unknown) (no date) (unknown) (unknown) Chief complaint: needs to detox (units unknown) (unknown) (unknown) (no date) (unknown) (unknown) Chloride 104 (units unknown) (unknown) (unknown) (no date) (unknown) (unknown) Creatinine 0.76 (units unknown) (unknown) (unknown) (no date) (unknown) (unknown) : 1990 Acct:[id number] (units unknown) (unknown) (unknown) (no date) (unknown) (unknown) Date of Service: 08/08/22 (units unknown) (unknown) (unknown) (no date) (unknown) (unknown) EXT: warm and well perfused with no edema (units unknown) (unknown) (unknown) (no date) (unknown) (unknown) Eos # (Auto) 0 (units unknown) (unknown) (unknown) (no date) (unknown) (unknown) Eos % (Auto) 0.8 L (units unknown) (unknown) (unknown) (no date) (unknown) (unknown) Estimated GFR > 60 (units unknown) (unknown) (unknown) (no date) (unknown) (unknown) Ethyl Alcohol 393 H (units unknown) (unknown) (unknown) (no date) (unknown) (unknown) Exam Narrative: (units unknown) (unknown) (unknown) (no date) (unknown) (unknown) Exam (units unknown) (unknown) (unknown) (no date) (unknown) (unknown) Family History (units unknown) (unknown) (unknown) (no date) (unknown) (unknown) Family/Other Alcoholism (units unknown) (unknown) (unknown) (no date) (unknown) (unknown) Family/Other Diabete s mellitus (units unknown) (unknown) (unknown) (no date) (unknown) (unknown) Father Alcoholism (units unknown) (unknown) (unknown) (no date) (unknown) (unknown) GEN: sedated, sleeping (units unknown) (unknown) (unknown) (no date) (unknown) (unknown) Globulin 3.3 (units unknown) (unknown) (unknown) (no date) (unknown) (unknown) Glucose 92 (units unknown) (unknown) (unknown) (no date) (unknown) (unknown) Grandfather Smoker (units unknown) (unknown) (unknown) (no date) (unknown) (unknown) Grandfather Unknown whether patient has any health problems (units unknown) (unknown) (unknown) (no date) (unknown) (unknown) Grandmother Diabetes mellitus (units unknown) (unknown) (unknown) (no date) (unknown) (unknown) Grandmother Hypoglycemia (units unknown) (unknown) (unknown) (no date) (unknown) (unknown) H/O dilation and curettage (-12/14/16) (units unknown) (unknown) (unknown) (no date) (unknown) (unknown) H/O wisdom tooth extraction () (units unknown) (unknown) (unknown) (no date) (unknown) (unknown) HEENT: moist mucous membranes, PERRL (units unknown) (unknown) (unknown) (no date) (unknown) (unknown) Hct 37.0 (units unknown) (unknown) (unknown) (no date) (unknown) (unknown) Hgb 11.9 L (units unknown) (unknown) (unknown) (no date) (unknown) (unknown) History + Physical Report (units unknown) (unknown) (unknown) (no date) (unknown) (unknown) History of Present Illness (units unknown) (unknown) (unknown) (no date) (unknown) (unknown) Home Medications and Allergies (units unknown) (unknown) (unknown) (no date) (unknown) (unknown) Home Medications (units unknown) (unknown) (unknown) (no date) (unknown) (unknown) I have utilized all available resources to obtain, update, or review the (units unknown) (unknown) (unknown) (no date) (unknown) (unknown) Insomnia (units unknown) (unknown) (unknown) (no date) (unknown) (unknown) [address] [address] (units unknown) (unknown) (unknown) (no date) (unknown) (unknown) Laboratory Results - last 24 hr (units unknown) (unknown) (unknown) (no date) (unknown) (unknown) Labs (units unknown) (unknown) (unknown) (no date) (unknown) (unknown) Labs: (units unknown) (unknown) (unknown) (no date) (unknown) (unknown) Lipase 408 H (units unknown) (unknown) (unknown) (no date) (unknown) (unknown) Lymph # (Auto) 2600 (units unknown) (unknown) (unknown) (no date) (unknown) (unknown) Lymph % (Auto) 51.5 H (units unknown) (unknown) (unknown) (no date) (unknown) (unknown) MCH 25.7 L (units unknown) (unknown) (unknown) (no date) (unknown) (unknown) MCHC 32.1 (units unknown) (unknown) (unknown) (no date) (unknown) (unknown) MCV 80.2 (units unknown) (unknown) (unknown) (no date) (unknown) (unknown) MIPS - Meds (units unknown) (unknown) (unknown) (no date) (unknown) (unknown) Medical History (units unknown) (unknown) (unknown) (no date) (unknown) (unknown) Medication Instructions Recorded Confirmed Type (units unknown) (unknown) (unknown) (no date) (unknown) (unknown) Meds (units unknown) (unknown) (unknown) (no date) (unknown) (unknown) Menometrorrhagia (units unknown) (unknown) (unknown) (no date) (unknown) (unknown) [place] # (Auto) 400 (units unknown) (unknown) (unknown) (no date) (unknown) (unknown) [place] % (Auto) 8.6 (units unknown) (unknown) (unknown) (no date) (unknown) (unknown) Mother Diabetes mellitus (units unknown) (unknown) (unknown) (no date) (unknown) (unknown) NECK: trachea midline, no JVD (units unknown) (unknown) (unknown) (no date) (unknown) (unknown) NEURO: sleepy, sedated, moving all extremities, no focal deficits noted (units unknown) (unknown) (unknown) (no date) (unknown) (unknown) Narrative (units unknown) (unknown) (unknown) (no date) (unknown) (unknown) Narrative: (units unknown) (unknown) (unknown) (no date) (unknown) (unknown) Neut # (Auto) 1900 (units unknown) (unknown) (unknown) (no date) (unknown) (unknown) Neut % (Auto) 36.6 L (units unknown) (unknown) (unknown) (no date) (unknown) (unknown) Obesity (units unknown) (unknown) (unknown) (no date) (unknown) (unknown) Objective (units unknown) (unknown) (unknown) (no date) (unknown) (unknown) Overweight (units unknown) (unknown) (unknown) (no date) (unknown) (unknown) Oxygen Delivery Method Room Air (units unknown) (unknown) (unknown) (no date) (unknown) (unknown) PFSH (units unknown) (unknown) (unknown) (no date) (unknown) (unknown) PULM: clear bilaterally, no wheezes, rhonchi, rales (units unknown) (unknown) (unknown) (no date) (unknown) (unknown) Patient: Sarah Connors MR#: M (units unknown) (unknown) (unknown) (no date) (unknown) (unknown) Plt Count 396 (units unknown) (unknown) (unknown) (no date) (unknown) (unknown) Potassium 3.6 (units unknown) (unknown) (unknown) (no date) (unknown) (unknown) Provider: Raymond Aguilera MD (units unknown) (unknown) (unknown) (no date) (unknown) (unknown) Proxy: Rober Connors, spouse (units unknown) (unknown) (unknown) (no date) (unknown) (unknown) Pulse Oximetry 96 (units unknown) (unknown) (unknown) (no date) (unknown) (unknown) Pulse Rate 100 H (units unknown) (unknown) (unknown) (no date) (unknown) (unknown) Quality (units unknown) (unknown) (unknown) (no date) (unknown) (unknown) RBC 4.61 (units unknown) (unknown) (unknown) (no date) (unknown) (unknown) RDW 19.7 H (units unknown) (unknown) (unknown) (no date) (unknown) (unknown) Respiratory Rate 20 (units unknown) (unknown) (unknown) (no date) (unknown) (unknown) Review of Systems (units unknown) (unknown) (unknown) (no date) (unknown) (unknown) S/P myringotomy with insertion of tube (units unknown) (unknown) (unknown) (no date) (unknown) (unknown) (spontaneous vaginal delivery) (-09/05/18) (units unknown) (unknown) (unknown) (no date) (unknown) (unknown) Signed By: (units unknown) (unknown) (unknown) (no date) (unknown) (unknown) Smoker (units unknown) (unknown) (unknown) (no date) (unknown) (unknown) Smoking Status: Former smoker (units unknown) (unknown) (unknown) (no date) (unknown) (unknown) Social History (units unknown) (unknown) (unknown) (no date) (unknown) (unknown) Sodium 148 H D (units unknown) (unknown) (unknown) (no date) (unknown) (unknown) Surgical History (units unknown) (unknown) (unknown) (no date) (unknown) (unknown) Temperature 98 F (units unknown) (unknown) (unknown) (no date) (unknown) (unknown) Total Bilirubin 0.4 (units unknown) (unknown) (unknown) (no date) (unknown) (unknown) Total Protein 7.7 (units unknown) (unknown) (unknown) (no date) (unknown) (unknown) Vital Signs (units unknown) (unknown) (unknown) (no date) (unknown) (unknown) WBC 5.1 (units unknown) (unknown) (unknown) (no date) (unknown) (unknown) [Embedded Image Not Available] (units unknown) (unknown) (unknown) (no date) (unknown) (unknown) [METOCLOPRAMIDE] (units unknown) (unknown) (unknown) (no date) (unknown) (unknown) alcohol intake: current (units unknown) (unknown) (unknown) (no date) (unknown) (unknown) and place in ICU (units unknown) (unknown) (unknown) (no date) (unknown) (unknown) chlordiazepoxide HCl 25 mg capsule See Rx Instructions .Route 08/03/22 Rx (units unknown) (unknown) (unknown) (no date) (unknown) (unknown) current occupational exposures/hazards: Yes (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 with Pandemic ) (units unknown) (unknown) (unknown) (no date) (unknown) (unknown) disulfiram 250 mg tablet 250 mg PO DAILY #30 tabs 08/03/22 Rx (units unknown) (unknown) (unknown) (no date) (unknown) (unknown) education level: college 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[employer] (units unknown) (unknown) (unknown) (no date) (unknown) (unknown) fluoxetine 10 mg capsule 10 mg PO DAILY 07/13/22 08/01/22 History (units unknown) (unknown) (unknown) (no date) (unknown) (unknown) herbals, cannabis/cannabidiol products, and vitamin/mineral/dieta ry (units unknown) (unknown) (unknown) (no date) (unknown) (unknown) household members: significant other (units unknown) (unknown) (unknown) (no date) (unknown) (unknown) hydrocodone [HYDROCODONE] AdvReac Unknown VOMITING Verified 07/12/22 16:18 (units unknown) (unknown) (unknown) (no date) (unknown) (unknown) hydroxyzine HCl 50 m g tablet 50 mg PO DAILY 07/13/22 08/01/22 History (units unknown) (unknown) (unknown) (no date) (unknown) (unknown) marital status: (units unknown) (unknown) (unknown) (no date) (unknown) (unknown) mcg tablet (Tab-A-Kael) (units unknown) (unknown) (unknown) (no date) (unknown) (unknown) metoclopramide Allergy Mild RASH/HIVES Verified 07/12/22 16:18 (units unknown) (unknown) (unknown) (no date) (unknown) (unknown) mg tablet (units unknown) (unknown) (unknown) (no date) (unknown) (unknown) month (units unknown) (unknown) (unknown) (no date) (unknown) (unknown) multivitamin with folic acid 400 1 tab PO DAILY #30 tabs 07/14/22 08/01/22 Rx (units unknown) (unknown) (unknown) (no date) (unknown) (unknown) number of children: 1 (units unknown) (unknown) (unknown) (no date) (unknown) (unknown) occupational status: employed (units unknown) (unknown) (unknown) (no date) (unknown) (unknown) pantoprazole 40 mg tablet,delayed 40 mg PO 0700 #30 tabs 07/14/22 08/01/22 Rx (units unknown) (unknown) (unknown) (no date) (unknown) (unknown) patient?s current medications. [If Yes, STOP here]: Yes (units unknown) (unknown) (unknown) (no date) (unknown) (unknown) quetiapine 300 mg tablet 300 mg PO DAILY 07/13/22 08/01/22 History (units unknown) (unknown) (unknown) (no date) (unknown) (unknown) release (units unknown) (unknown) (unknown) (no date) (unknown) (unknown) second hand exposure : No (growing up as a child - not currently) (units unknown) (unknown) (unknown) (no date) (unknown) (unknown) special renee needs: No (units unknown) (unknown) (unknown) (no date) (unknown) (unknown) substance use type: does not use (units unknown) (unknown) (unknown) (no date) (unknown) (unknown) thiamine mononitrate (vit B1) 100 100 mg PO DAILY #30 tabs 07/14/22 08/01/22 Rx (units unknown) (unknown) Result panel 2284 (unknown) (no date) (unknown) (unknown) (no value) (units unknown) (unknown) (unknown) (no date) (unknown) (unknown) 'Current medications ' to include all prescriptions, [id number] products, (units unknown) (unknown) (unknown) (no date) (unknown) (unknown) (nutritional) supplements. (units unknown) (unknown) (unknown) (no date) (unknown) (unknown) (past 8 hours): (units unknown) (unknown) (unknown) (no date) (unknown) (unknown) -SW consult (units unknown) (unknown) (unknown) (no date) (unknown) (unknown) -continue PPI (units unknown) (unknown) (unknown) (no date) (unknown) (unknown) -continue ciwa protocol, with ativan, start librium 50mg q6, ordered precedex (units unknown) (unknown) (unknown) (no date) (unknown) (unknown) -continue prozac (units unknown) (unknown) (unknown) (no date) (unknown) (unknown) -continue to trend (units unknown) (unknown) (unknown) (no date) (unknown) (unknown) -each time she has refused rehab (units unknown) (unknown) (unknown) (no date) (unknown) (unknown) -follow up urine cultures (units unknown) (unknown) (unknown) (no date) (unknown) (unknown) -likely secondary to inadequate PO intake due to alcoholism (units unknown) (unknown) (unknown) (no date) (unknown) (unknown) -multiple admissions and hospital visits for alcohol withdrawal within the last (units unknown) (unknown) (unknown) (no date) (unknown) (unknown) -ordered for high dose thiamine for prevention/treatment of wernicke's (units unknown) (unknown) (unknown) (no date) (unknown) (unknown) -per ED she is requesting detox after drinking heavily after discharge (units unknown) (unknown) (unknown) (no date) (unknown) (unknown) -per ED she was hallucinating and agitated on arrival, received phenobarbital (units unknown) (unknown) (unknown) (no date) (unknown) (unknown) -she was just discharged 5 days ago, refusing rehab (units unknown) (unknown) (unknown) (no date) (unknown) (unknown) -suspect secondary t o alcohol withdrawal and phenobarbital and treat as above (units unknown) (unknown) (unknown) (no date) (unknown) (unknown) -trend daily (units unknown) (unknown) (unknown) (no date) (unknown) (unknown) -unable to discuss with patient on admission as she is sedated (units unknown) (unknown) (unknown) (no date) (unknown) (unknown) .COMPLEX #30 caps (units unknown) (unknown) (unknown) (no date) (unknown) (unknown) [id number] (units unknown) (unknown) (unknown) (no date) (unknown) (unknown) 08/08/22 08/08/22 08/08/22 (units unknown) (unknown) (unknown) (no date) (unknown) (unknown) 08/08/22 21:00 (units unknown) (unknown) (unknown) (no date) (unknown) (unknown) 08/08/22 2253 (units unknown) (unknown) (unknown) (no date) (unknown) (unknown) 08/08/22 (units unknown) (unknown) (unknown) (no date) (unknown) (unknown) 1. Acute alcohol withdrawal with DTs (units unknown) (unknown) (unknown) (no date) (unknown) (unknown) 14 systems reviewed and negative aside from what is noted in HPI (units unknown) (unknown) (unknown) (no date) (unknown) (unknown) 2. Acute encephalopathy (units unknown) (unknown) (unknown) (no date) (unknown) (unknown) 20:13 (units unknown) (unknown) (unknown) (no date) (unknown) (unknown) 21:00 21:00 21:00 (units unknown) (unknown) (unknown) (no date) (unknown) (unknown) 3. Hypernatremia (units unknown) (unknown) (unknown) (no date) (unknown) (unknown) 4. Depression and anxiety (units unknown) (unknown) (unknown) (no date) (unknown) (unknown) 5. Anemia, chronic (units unknown) (unknown) (unknown) (no date) (unknown) (unknown) 6. GERD (units unknown) (unknown) (unknown) (no date) (unknown) (unknown) ABD: soft, nontender , nondistended, no organomegaly (units unknown) (unknown) (unknown) (no date) (unknown) (unknown) ALT 64 H (units unknown) (unknown) (unknown) (no date) (unknown) (unknown) AST 424 H (units unknown) (unknown) (unknown) (no date) (unknown) (unknown) Age/Sex: 31 / F (units unknown) (unknown) (unknown) (no date) (unknown) (unknown) Albumin 4.4 (units unknown) (unknown) (unknown) (no date) (unknown) (unknown) Albumin/Globulin Ratio 1.3 (units unknown) (unknown) (unknown) (no date) (unknown) (unknown) Alcohol withdrawal delirium, acute, hyperactive (units unknown) (unknown) (unknown) (no date) (unknown) (unknown) Alcoholism (units unknown) (unknown) (unknown) (no date) (unknown) (unknown) Alkaline Phosphatase 71 (units unknown) (unknown) (unknown) (no date) (unknown) (unknown) Allergies (units unknown) (unknown) (unknown) (no date) (unknown) (unknown) Allergy/AdvReac Type Severity Reaction Status Date / Time (units unknown) (unknown) (unknown) (no date) (unknown) (unknown) Anemia (-2018) (units unknown) (unknown) (unknown) (no date) (unknown) (unknown) Assessment + Plan narrative: (units unknown) (unknown) (unknown) (no date) (unknown) (unknown) Assessment + Plan (units unknown) (unknown) (unknown) (no date) (unknown) (unknown) BUN 7 (units unknown) (unknown) (unknown) (no date) (unknown) (unknown) BUN/Creatinine Ratio 9.2 (units unknown) (unknown) (unknown) (no date) (unknown) (unknown) Baso # (Auto) 100 (units unknown) (unknown) (unknown) (no date) (unknown) (unknown) Baso % (Auto) 2.5 H (units unknown) (unknown) (unknown) (no date) (unknown) (unknown) CODE: Full (units unknown) (unknown) (unknown) (no date) (unknown) (unknown) CV: regular rate and rhythm, no murmurs (units unknown) (unknown) (unknown) (no date) (unknown) (unknown) Calcium 8.4 (units unknown) (unknown) (unknown) (no date) (unknown) (unknown) Carbon Dioxide 33 H (units unknown) (unknown) (unknown) (no date) (unknown) (unknown) Chief complaint: needs to detox (units unknown) (unknown) (unknown) (no date) (unknown) (unknown) Chloride 104 (units unknown) (unknown) (unknown) (no date) (unknown) (unknown) Creatinine 0.76 (units unknown) (unknown) (unknown) (no date) (unknown) (unknown) : 1990 Acct:[id number] (units unknown) (unknown) (unknown) (no date) (unknown) (unknown) Date Patient Seen: 08/08/22 (units unknown) (unknown) (unknown) (no date) (unknown) (unknown) Date of Service: 08/08/22 (units unknown) (unknown) (unknown) (no date) (unknown) (unknown) EXT: warm and well perfused with no edema (units unknown) (unknown) (unknown) (no date) (unknown) (unknown) Each time she has refused further treatment to rehab upon discharge. Her last (units unknown) (unknown) (unknown) (no date) (unknown) (unknown) Eos # (Auto) 0 (units unknown) (unknown) (unknown) (no date) (unknown) (unknown) Eos % (Auto) 0.8 L (units unknown) (unknown) (unknown) (no date) (unknown) (unknown) Estimated GFR > 60 (units unknown) (unknown) (unknown) (no date) (unknown) (unknown) Ethyl Alcohol 393 H (units unknown) (unknown) (unknown) (no date) (unknown) (unknown) Exam Narrative: (units unknown) (unknown) (unknown) (no date) (unknown) (unknown) Exam (units unknown) (unknown) (unknown) (no date) (unknown) (unknown) Family History (units unknown) (unknown) (unknown) (no date) (unknown) (unknown) Family/Other Alcoholism (units unknown) (unknown) (unknown) (no date) (unknown) (unknown) Family/Other Diabete s mellitus (units unknown) (unknown) (unknown) (no date) (unknown) (unknown) Father Alcoholism (units unknown) (unknown) (unknown) (no date) (unknown) (unknown) GEN: sedated, sleeping (units unknown) (unknown) (unknown) (no date) (unknown) (unknown) Globulin 3.3 (units unknown) (unknown) (unknown) (no date) (unknown) (unknown) Glucose 92 (units unknown) (unknown) (unknown) (no date) (unknown) (unknown) Grandfather Smoker (units unknown) (unknown) (unknown) (no date) (unknown) (unknown) Grandfather Unknown whether patient has any health problems (units unknown) (unknown) (unknown) (no date) (unknown) (unknown) Grandmother Diabetes mellitus (units unknown) (unknown) (unknown) (no date) (unknown) (unknown) Grandmother Hypoglycemia (units unknown) (unknown) (unknown) (no date) (unknown) (unknown) H/O dilation and curettage (-12/14/16) (units unknown) (unknown) (unknown) (no date) (unknown) (unknown) H/O wisdom tooth extraction () (units unknown) (unknown) (unknown) (no date) (unknown) (unknown) HEENT: moist mucous membranes, PERRL (units unknown) (unknown) (unknown) (no date) (unknown) (unknown) Hct 37.0 (units unknown) (unknown) (unknown) (no date) (unknown) (unknown) Hgb 11.9 L (units unknown) (unknown) (unknown) (no date) (unknown) (unknown) History + Physical Report (units unknown) (unknown) (unknown) (no date) (unknown) (unknown) History of Present Illness (units unknown) (unknown) (unknown) (no date) (unknown) (unknown) Home Medications and Allergies (units unknown) (unknown) (unknown) (no date) (unknown) (unknown) Home Medications (units unknown) (unknown) (unknown) (no date) (unknown) (unknown) I have utilized all available resources to obtain, update, or review the (units unknown) (unknown) (unknown) (no date) (unknown) (unknown) In the ED workup was done, vitals notable for tachycardia. Initial CIWA 17, she (units unknown) (unknown) (unknown) (no date) (unknown) (unknown) Insomnia (units unknown) (unknown) (unknown) (no date) (unknown) (unknown) [address] [address] (units unknown) (unknown) (unknown) (no date) (unknown) (unknown) Laboratory Results - last 24 hr (units unknown) (unknown) (unknown) (no date) (unknown) (unknown) Labs (units unknown) (unknown) (unknown) (no date) (unknown) (unknown) Labs: (units unknown) (unknown) (unknown) (no date) (unknown) (unknown) Lipase 408 H (units unknown) (unknown) (unknown) (no date) (unknown) (unknown) Lymph # (Auto) 2600 (units unknown) (unknown) (unknown) (no date) (unknown) (unknown) Lymph % (Auto) 51.5 H (units unknown) (unknown) (unknown) (no date) (unknown) (unknown) MCH 25.7 L (units unknown) (unknown) (unknown) (no date) (unknown) (unknown) MCHC 32.1 (units unknown) (unknown) (unknown) (no date) (unknown) (unknown) MCV 80.2 (units unknown) (unknown) (unknown) (no date) (unknown) (unknown) MIPS - Meds (units unknown) (unknown) (unknown) (no date) (unknown) (unknown) Medical History (units unknown) (unknown) (unknown) (no date) (unknown) (unknown) Medication Instructions Recorded Confirmed Type (units unknown) (unknown) (unknown) (no date) (unknown) (unknown) Meds (units unknown) (unknown) (unknown) (no date) (unknown) (unknown) Menometrorrhagia (units unknown) (unknown) (unknown) (no date) (unknown) (unknown) [place] # (Auto) 400 (units unknown) (unknown) (unknown) (no date) (unknown) (unknown) [place] % (Auto) 8.6 (units unknown) (unknown) (unknown) (no date) (unknown) (unknown) Mother Diabetes mellitus (units unknown) (unknown) (unknown) (no date) (unknown) (unknown) Ms. Connors is a 31W with PMH alcohol abuse, DTs, alcoholic seizure who presents (units unknown) (unknown) (unknown) (no date) (unknown) (unknown) NECK: trachea midline, no JVD (units unknown) (unknown) (unknown) (no date) (unknown) (unknown) NEURO: sleepy, sedated, moving all extremities, no focal deficits noted (units unknown) (unknown) (unknown) (no date) (unknown) (unknown) Narrative (units unknown) (unknown) (unknown) (no date) (unknown) (unknown) Narrative: (units unknown) (unknown) (unknown) (no date) (unknown) (unknown) Neut # (Auto) 1900 (units unknown) (unknown) (unknown) (no date) (unknown) (unknown) Neut % (Auto) 36.6 L (units unknown) (unknown) (unknown) (no date) (unknown) (unknown) Obesity (units unknown) (unknown) (unknown) (no date) (unknown) (unknown) Objective (units unknown) (unknown) (unknown) (no date) (unknown) (unknown) Overweight (units unknown) (unknown) (unknown) (no date) (unknown) (unknown) Oxygen Delivery Method Room Air (units unknown) (unknown) (unknown) (no date) (unknown) (unknown) PFSH (units unknown) (unknown) (unknown) (no date) (unknown) (unknown) PULM: clear bilaterally, no wheezes, rhonchi, rales (units unknown) (unknown) (unknown) (no date) (unknown) (unknown) Patient: DorySarah MR#: M (units unknown) (unknown) (unknown) (no date) (unknown) (unknown) Plt Count 396 (units unknown) (unknown) (unknown) (no date) (unknown) (unknown) Potassium 3.6 (units unknown) (unknown) (unknown) (no date) (unknown) (unknown) Provider: Raymond Aguilera MD (units unknown) (unknown) (unknown) (no date) (unknown) (unknown) Proxy: Rober Connors, spouse (units unknown) (unknown) (unknown) (no date) (unknown) (unknown) Pulse Oximetry 96 (units unknown) (unknown) (unknown) (no date) (unknown) (unknown) Pulse Rate 100 H (units unknown) (unknown) (unknown) (no date) (unknown) (unknown) Quality (units unknown) (unknown) (unknown) (no date) (unknown) (unknown) RBC 4.61 (units unknown) (unknown) (unknown) (no date) (unknown) (unknown) RDW 19.7 H (units unknown) (unknown) (unknown) (no date) (unknown) (unknown) Respiratory Rate 20 (units unknown) (unknown) (unknown) (no date)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 (units unknown) (unknown) (unknown) (no date) (unknown) (unknown) Patient is minimally cooperative with the exam. Is animated. Appears to be (units unknown) (unknown) (unknown) (no date) (unknown) (unknown) Patient is unwilling/unable to provide much other HPI or review of systems. (units unknown) (unknown) (unknown) (no date) (unknown) (unknown) Patient: Sarah Connors MR#: M (units unknown) (unknown) (unknown) (no date) (unknown) (unknown) Phenobarbital (Phenobarbital 65 Mg/Ml Vial) 260 mg IM NOW ONE (units unknown) (unknown) (unknown) (no date) (unknown) (unknown) Plt Count (150-400) X103/uL (units unknown) (unknown) (unknown) (no date) (unknown) (unknown) Plt Count 396 (150-400) X103/uL (units unknown) (unknown) (unknown) (no date) (unknown) (unknown) Potassium (3.4-5.1) mmol/L (units unknown) (unknown) (unknown) (no date) (unknown) (unknown) Potassium 3.6 (3.4-5.1) mmol/L (units unknown) (unknown) (unknown) (no date) (unknown) (unknown) Test Urine Stat (units unknown) (unknown) (unknown) (no date) (unknown) (unknown) Previous Rx's (units unknown) (unknown) (unknown) (no date) (unknown) (unknown) Psych (units unknown) (unknown) (unknown) (no date) (unknown) (unknown) Pulse Oximetry 96 08/08/22 20:13 (units unknown) (unknown) (unknown) (no date) (unknown) (unknown) Pulse Oximetry 96 (units unknown) (unknown) (unknown) (no date) (unknown) (unknown) Pulse Rate 100 H 08/08/22 20:13 (units unknown) (unknown) (unknown) (no date) (unknown) (unknown) Pulse Rate 100 H (units unknown) (unknown) (unknown) (no date) (unknown) (unknown) RBC (4.0-5.2) X106/uL (units unknown) (unknown) (unknown) (no date) (unknown) (unknown) RBC 4.61 (4.0-5.2) X106/uL (units unknown) (unknown) (unknown) (no date) (unknown) (unknown) RDW (11.6-14.8) % (units unknown) (unknown) (unknown) (no date) (unknown) (unknown) RDW 19.7 H (11.6-14.8) % (units unknown) (unknown) (unknown) (no date) (unknown) (unknown) ROS Unobtainable: Unobtainable due to mental condition (units unknown) (unknown) (unknown) (no date) (unknown) (unknown) Rate: regular rate (units unknown) (unknown) (unknown) (no date) (unknown) (unknown) Related Data (units unknown) (unknown) (unknown) (no date) (unknown) (unknown) Resp (units unknown) (unknown) (unknown) (no date) (unknown) (unknown) Respiratory Rate 20 08/08/22 20:13 (units unknown) (unknown) (unknown) (no date) (unknown) (unknown) Respiratory Rate 20 (units unknown) (unknown) (unknown) (no date) (unknown) (unknown) Review of Systems (units unknown) (unknown) (unknown) (no date) (unknown) (unknown) Rhythm: regular rhythm (units unknown) (unknown) (unknown) (no date) (unknown) (unknown) S/P myringotomy with insertion of tube (units unknown) (unknown) (unknown) (no date) (unknown) (unknown) (spontaneous vaginal delivery) (-09/05/18) (units unknown) (unknown) (unknown) (no date) (unknown) (unknown) Signed By: (units unknown) (unknown) (unknown) (no date) (unknown) (unknown) Smoker (units unknown) (unknown) (unknown) (no date) (unknown) (unknown) Smoking Status: Former smoker (units unknown) (unknown) (unknown) (no date) (unknown) (unknown) Social History (units unknown) (unknown) (unknown) (no date) (unknown) (unknown) Sodium (137-145) mmol/L (units unknown) (unknown) (unknown) (no date) (unknown) (unknown) Sodium 148 H D (137-145) mmol/L (units unknown) (unknown) (unknown) (no date) (unknown) (unknown) Source: other (Friend) (units unknown) (unknown) (unknown) (no date) (unknown) (unknown) Stated complaint: needs to detox (units unknown) (unknown) (unknown) (no date) (unknown) (unknown) Stop: 08/08/22 20:30 (units unknown) (unknown) (unknown) (no date) (unknown) (unknown) Stop: 08/08/22 20:51 (units unknown) (unknown) (unknown) (no date) (unknown) (unknown) Substance Use Type: does not use (units unknown) (unknown) (unknown) (no date) (unknown) (unknown) Surgical History (units unknown) (unknown) (unknown) (no date) (unknown) (unknown) TITRATE SANDY; Protocol (units unknown) (unknown) (unknown) (no date) (unknown) (unknown) Temperature 98 F 08/08/22 20:13 (units unknown) (unknown) (unknown) (no date) (unknown) (unknown) Temperature 98 F (units unknown) (unknown) (unknown) (no date) (unknown) (unknown) Thiamine HCl 100 mg/ Sodium (Chloride) 101 mls @ 404 mls/hr IV NOW ONE (units unknown) (unknown) (unknown) (no date) (unknown) (unknown) Thiamine HCl 500 mg/ Sodium (Chloride) 105 mls @ 420 mls/hr IV TID SANDY (units unknown) (unknown) (unknown) (no date) (unknown) (unknown) Time Seen by Provider: 08/08/22 20:27 (units unknown) (unknown) (unknown) (no date) (unknown) (unknown) Total Bilirubin (0.2-1.3) mg/dL (units unknown) (unknown) (unknown) (no date) (unknown) (unknown) Total Bilirubin 0.4 (0.2-1.3) mg/dL (units unknown) (unknown) (unknown) (no date) (unknown) (unknown) Total Protein (6.3-8.2) g/dL (units unknown) (unknown) (unknown) (no date) (unknown) (unknown) Total Protein 7.7 (6.3-8.2) g/dL (units unknown) (unknown) (unknown) (no date) (unknown) (unknown) Urinalysis and Microscopic Stat (units unknown) (unknown) (unknown) (no date) (unknown) (unknown) Urine Drug Screen, Rapid Stat (units unknown) (unknown) (unknown) (no date) (unknown) (unknown) Vital Signs - 8 hr (units unknown) (unknown) (unknown) (no date) (unknown) (unknown) Vital Signs (units unknown) (unknown) (unknown) (no date) (unknown) (unknown) Vital signs: (units unknown) (unknown) (unknown) (no date) (unknown) (unknown) WBC (4.5-11.0) X103/uL (units unknown) (unknown) (unknown) (no date) (unknown) (unknown) WBC 5.1 (4.5-11.0) X103/uL (units unknown) (unknown) (unknown) (no date) (unknown) (unknown) [Embedded Image Not Available] (units unknown) (unknown) (unknown) (no date) (unknown) (unknown) [METOCLOPRAMIDE] (units unknown) (unknown) (unknown) (no date) (unknown) (unknown) admissions to the hospital. Each time that she is been admitted to the hospital (units unknown) (unknown) (unknown) (no date) (unknown) (unknown) admitted 2 times in the past this hospital most recently within the past couple (units unknown) (unknown) (unknown) (no date) (unknown) (unknown) alcohol intake frequency: 3 or more drinks per day (units unknown) (unknown) (unknown) (no date) (unknown) (unknown) alcohol intake: current (units unknown) (unknown) (unknown) (no date) (unknown) (unknown) anxious in his obviously hallucinating. She is very animated in the room. She (units unknown) (unknown) (unknown) (no date) (unknown) (unknown) being very clear wit h this she was only minimally interactive with the rest of (units unknown) (unknown) (unknown) (no date) (unknown) (unknown) bit. She was able to sleep. She was also given thiamine. Discussed the case (units unknown) (unknown) (unknown) (no date) (unknown) (unknown) chlordiazepoxide HCl 25 mg capsule See Rx Instructions .Route 08/03/22 (units unknown) (unknown) (unknown) (no date) (unknown) (unknown) current occupational exposures/hazards: Yes (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 with Pandemic ) (units unknown) (unknown) (unknown) (no date) (unknown) (unknown) delirium and seizures. She is required Precedex in the ICU during her last 2 (units unknown) (unknown) (unknown) (no date) (unknown) (unknown) department today stating that she would like help with her drinking although (units unknown) (unknown) (unknown) (no date) (unknown) (unknown) dexmedeTOMIDine in 0.9 % NaCL (Precedex) 400 mcg in 100 mls @ 2.699 mls/hr IV (units unknown) (unknown) (unknown) (no date) (unknown) (unknown) did say yes that she wanted admitted for detox. 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 Obviously intoxicated. (units unknown) (unknown) (unknown) (no date) (unknown) (unknown) household members: significant other (units unknown) (unknown) (unknown) (no date) (unknown) (unknown) hydrocodone [HYDROCODONE] AdvReac Unknown VOMITING Verified 07/12/22 16:18 (units unknown) (unknown) (unknown) (no date) (unknown) (unknown) hydroxyzine HCl 50 m g tablet 50 mg PO DAILY 07/13/22 08/01/22 (units unknown) (unknown) (unknown) (no date) (unknown) (unknown) marital status: (units unknown) (unknown) (unknown) (no date) (unknown) (unknown) mcg tablet (Tab-A-Kael) (units unknown) (unknown) (unknown) (no date) (unknown) (unknown) metoclopramide Allergy Mild RASH/HIVES Verified 07/12/22 16:18 (units unknown) (unknown) (unknown) (no date) (unknown) (unknown) mg tablet (units unknown) (unknown) (unknown) (no date) (unknown) (unknown) multivitamin with folic acid 400 1 tab PO DAILY #30 tabs 07/14/22 (units unknown) (unknown) (unknown) (no date) (unknown) (unknown) number of children: 1 (units unknown) (unknown) (unknown) (no date) (unknown) (unknown) occupational status: employed (units unknown) (unknown) (unknown) (no date) (unknown) (unknown) pantoprazole 40 mg tablet,delayed 40 mg PO 0700 #30 tabs 07/14/22 (units unknown) (unknown) (unknown) (no date) (unknown) (unknown) quetiapine 300 mg tablet 300 mg PO DAILY 07/13/22 08/01/22 (units unknown) (unknown) (unknown) (no date) (unknown) (unknown) release (units unknown) (unknown) (unknown) (no date) (unknown) (unknown) returning home next week and she wanted to be sober in order to see them. (units unknown) (unknown) (unknown) (no date) (unknown) (unknown) second hand exposure : No (growing up as a child - not currently) (units unknown) (unknown) (unknown) (no date) (unknown) (unknown) several weeks for alcohol intoxication and alcohol withdrawals. She is been (units unknown) (unknown) (unknown) (no date) (unknown) (unknown) she is been discharged home. She continues to drink. She returns to emergency (units unknown) (unknown) (unknown) (no date) (unknown) (unknown) special renee needs: No (units unknown) (unknown) (unknown) (no date) (unknown) (unknown) substance use type: does not use (units unknown) (unknown) (unknown) (no date) (unknown) (unknown) the exam. She is onl y partially directable. Labs were obtained. Alcohol level (units unknown) (unknown) (unknown) (no date) (unknown) (unknown) thiamine mononitrate (vit B1) 100 100 mg PO DAILY #30 tabs 07/14/22 (units unknown) (unknown) (unknown) (no date) (unknown) (unknown) treatment. (units unknown) (unknown) (unknown) (no date) (unknown) (unknown) wanted to come to [facility] emergency department because she wanted help for drinking. (units unknown) (unknown) (unknown) (no date) (unknown) (unknown) was elevated. She wa s given phenobarbital and afterwards calm down quite a (units unknown) (unknown) (unknown) (no date) (unknown) (unknown) weeks needing admission to the hospital in a Precedex drip for her symptoms. (units unknown) (unknown) (unknown) (no date) (unknown) (unknown) with Dr. Aguilera [facility] hospitalist who will admit for further evaluation and (units unknown) (unknown) Result panel 2287 (unknown) (no date) (unknown) (unknown) 0.2 e.u./dl (unknown) (unknown) (no date) (unknown) (unknown) 1 (units unknown) (unknown) (unknown) (no date) (unknown) (unknown) 1.015 (units unknown) (unknown) (unknown) (no date) (unknown) (unknown) 6.0 (units unknown) (unknown) (unknown) (no date) (unknown) (unknown) CLEAR (units unknown) (unknown) (unknown) (no date) (unknown) (unknown) NEGATIVE (units unknown) (unknown) (unknown) (no date) (unknown) (unknown) NEGATIVE g/dl (unknown) (unknown) (no date) (unknown) (unknown) POSITIVE (units unknown) (unknown) (unknown) (no date) (unknown) (unknown) YELLOW (units unknown) (unknown) (unknown) (no date) (unknown) (unknown) YELLOW (units unknown) (unknown) Result panel 2288 (unknown) (no date) (unknown) (unknown) Negative (units unknown) (unknown) Result panel 2289 (unknown) (no date) (unknown) (unknown) 1.015 (units unknown) (unknown) (unknown) (no date) (unknown) (unknown) 20 (units unknown) (unknown) (unknown) (no date) (unknown) (unknown) 6 (units unknown) (unknown) (unknown) (no date) (unknown) (unknown) Negative (units unknown) (unknown) (unknown) (no date) (unknown) (unknown) Positive (units unknown) (unknown) Result panel 2290 (unknown) (no date) (unknown) (unknown) 0.2 e.u./dl (unknown) (unknown) (no date) (unknown) (unknown) 1 (units unknown) (unknown) (unknown) (no date) (unknown) (unknown) 1.015 (units unknown) (unknown) (unknown) (no date) (unknown) (unknown) 10-30/HPF (units unknown) (unknown) (unknown) (no date) (unknown) (unknown) 6.0 (units unknown) (unknown) (unknown) (no date) (unknown) (unknown) CLEAR (units unknown) (unknown) (unknown) (no date) (unknown) (unknown) Many (>30) (units unknown) (unknown) (unknown) (no date) (unknown) (unknown) NEGATIVE (units unknown) (unknown) (unknown) (no date) (unknown) (unknown) NEGATIVE g/dl (unknown) (unknown) (no date) (unknown) (unknown) None Seen (units unknown) (unknown) (unknown) (no date) (unknown) (unknown) POSITIVE (units unknown) (unknown) (unknown) (no date) (unknown) (unknown) Specimen Cultured (units unknown) (unknown) (unknown) (no date) (unknown) (unknown) YELLOW (units unknown) (unknown) (unknown) (no date) (unknown) (unknown) YELLOW (units unknown) (unknown) Result panel 2291 (unknown) (no date) (unknown) (unknown) 0 /ul (unknown) (unknown) (no date) (unknown) (unknown) 0.7 % (unknown) (unknown) (no date) (unknown) (unknown) 1.9 % (unknown) (unknown) (no date) (unknown) (unknown) 10.1 g/dl (unknown) (unknown) (no date) (unknown) (unknown) 100 /ul (unknown) (unknown) (no date) (unknown) (unknown) 19.5 % (unknown) (unknown) (no date) (unknown) (unknown) 1900 /ul (unknown) (unknown) (no date) (unknown) (unknown) 25.4 pg (unknown) (unknown) (no date) (unknown) (unknown) 2800 /ul (unknown) (unknown) (no date) (unknown) (unknown) 3.98 x10 6/ul (unknown) (unknown) (no date) (unknown) (unknown) 300 /ul (unknown) (unknown) (no date) (unknown) (unknown) 31.4 % (unknown) (unknown) (no date) (unknown) (unknown) 32.2 % (unknown) (unknown) (no date) (unknown) (unknown) 332 x10 3/ul (unknown) (unknown) (no date) (unknown) (unknown) 36.7 % (unknown) (unknown) (no date) (unknown) (unknown) 5.2 x10 3/ul (unknown) (unknown) (no date) (unknown) (unknown) 54.2 % (unknown) (unknown) (no date) (unknown) (unknown) 6.5 % (unknown) (unknown) (no date) (unknown) (unknown) 79.0 fl (unknown) Result panel 2292 (unknown) (no date) (unknown) (unknown) (no value) (units unknown) (unknown) (unknown) (no date) (unknown) (unknown) (1) Alcohol withdrawal delirium, acute, hyperactive: (units unknown) (unknown) (unknown) (no date) (unknown) (unknown) (2) Abnormal urinalysis: (units unknown) (unknown) (unknown) (no date) (unknown) (unknown) (past 8 hours): (units unknown) (unknown) (unknown) (no date) (unknown) (unknown) -Continue CIWA, Precedex, thiamine, folate (units unknown) (unknown) (unknown) (no date) (unknown) (unknown) -Follow up on reflexed culture (units unknown) (unknown) (unknown) (no date) (unknown) (unknown) 0.2 MCG/KG/HR (units unknown) (unknown) (unknown) (no date) (unknown) (unknown) [id number] (units unknown) (unknown) (unknown) (no date) (unknown) (unknown) 00:00 08/09/22 (units unknown) (unknown) (unknown) (no date) (unknown) (unknown) 00:00 (units unknown) (unknown) (unknown) (no date) (unknown) (unknown) 01:00 08/09/22 (units unknown) (unknown) (unknown) (no date) (unknown) (unknown) 01:06 08/09/22 (units unknown) (unknown) (unknown) (no date) (unknown) (unknown) 01:06 (units unknown) (unknown) (unknown) (no date) (unknown) (unknown) 01:29 08/09/22 (units unknown) (unknown) (unknown) (no date) (unknown) (unknown) 01:29 (units unknown) (unknown) (unknown) (no date) (unknown) (unknown) 02:00 08/09/22 (units unknown) (unknown) (unknown) (no date) (unknown) (unknown) 07/14/22 [Rx Confirmed 08/01/22] (units unknown) (unknown) (unknown) (no date) (unknown) (unknown) 08/01/22] (units unknown) (unknown) (unknown) (no date) (unknown) (unknown) 08/03/22 [Rx] (units unknown) (unknown) (unknown) (no date) (unknown) (unknown) 08/08/22 08/08/22 08/08/22 (units unknown) (unknown) (unknown) (no date) (unknown) (unknown) 08/08/22 08/08/22 08/09/22 (units unknown) (unknown) (unknown) (no date) (unknown) (unknown) 08/08/22 21:00 (units unknown) (unknown) (unknown) (no date) (unknown) (unknown) 08/08/22 (units unknown) (unknown) (unknown) (no date) (unknown) (unknown) 08/09/22 08/09/22 (units unknown) (unknown) (unknown) (no date) (unknown) (unknown) 08/09/22 04:01 (units unknown) (unknown) (unknown) (no date) (unknown) (unknown) 08/09/22 (units unknown) (unknown) (unknown) (no date) (unknown) (unknown) 03:00 08/09/22 (units unknown) (unknown) (unknown) (no date) (unknown) (unknown) 03:00 (units unknown) (unknown) (unknown) (no date) (unknown) (unknown) 03:02 08/09/22 (units unknown) (unknown) (unknown) (no date) (unknown) (unknown) 03:02 (units unknown) (unknown) (unknown) (no date) (unknown) (unknown) 04:30 04:30 (units unknown) (unknown) (unknown) (no date) (unknown) (unknown) 21:00 21:00 21:00 (units unknown) (unknown) (unknown) (no date) (unknown) (unknown) 21:00 22:30 04:30 (units unknown) (unknown) (unknown) (no date) (unknown) (unknown) 22:53 08/08/22 (units unknown) (unknown) (unknown) (no date) (unknown) (unknown) 23:00 08/08/22 (units unknown) (unknown) (unknown) (no date) (unknown) (unknown) 23:00 (units unknown) (unknown) (unknown) (no date) (unknown) (unknown) 23:24 08/09/22 (units unknown) (unknown) (unknown) (no date) (unknown) (unknown) 31 y.o. admitted for EtOH intoxication, withdrawal and seizure. CIWA of 17. (units unknown) (unknown) (unknown) (no date) (unknown) (unknown) ALT 64 H (units unknown) (unknown) (unknown) (no date) (unknown) (unknown) ALT (units unknown) (unknown) (unknown) (no date) (unknown) (unknown) AST 424 H (units unknown) (unknown) (unknown) (no date) (unknown) (unknown) AST (units unknown) (unknown) (unknown) (no date) (unknown) (unknown) Age/Sex: 31 / F (units unknown) (unknown) (unknown) (no date) (unknown) (unknown) Albumin 4.4 (units unknown) (unknown) (unknown) (no date) (unknown) (unknown) Albumin (units unknown) (unknown) (unknown) (no date) (unknown) (unknown) Albumin/Globulin Ratio 1.3 (units unknown) (unknown) (unknown) (no date) (unknown) (unknown) Albumin/Globulin Ratio (units unknown) (unknown) (unknown) (no date) (unknown) (unknown) Alcohol Withdrawal (units unknown) (unknown) (unknown) (no date) (unknown) (unknown) Alcohol withdrawal delirium, acute, hyperactive (units unknown) (unknown) (unknown) (no date) (unknown) (unknown) Alcoholism (units unknown) (unknown) (unknown) (no date) (unknown) (unknown) Alkaline Phosphatase 71 (units unknown) (unknown) (unknown) (no date) (unknown) (unknown) Alkaline Phosphatase (units unknown) (unknown) (unknown) (no date) (unknown) (unknown) Anemia (-2018) (units unknown) (unknown) (unknown) (no date) (unknown) (unknown) Assessment + Plan (units unknown) (unknown) (unknown) (no date) (unknown) (unknown) Assessment and plan (units unknown) (unknown) (unknown) (no date) (unknown) (unknown) BUN 7 (units unknown) (unknown) (unknown) (no date) (unknown) (unknown) BUN (units unknown) (unknown) (unknown) (no date) (unknown) (unknown) BUN/Creatinine Ratio 9.2 (units unknown) (unknown) (unknown) (no date) (unknown) (unknown) BUN/Creatinine Ratio (units unknown) (unknown) (unknown) (no date) (unknown) (unknown) Baso # (Auto) 100 (units unknown) (unknown) (unknown) (no date) (unknown) (unknown) Baso # (Auto) (units unknown) (unknown) (unknown) (no date) (unknown) (unknown) Baso % (Auto) 2.5 H (units unknown) (unknown) (unknown) (no date) (unknown) (unknown) Baso % (Auto) (units unknown) (unknown) (unknown) (no date) (unknown) (unknown) Blood Pressure 109/7 0 75/40 L (units unknown) (unknown) (unknown) (no date) (unknown) (unknown) Blood Pressure 109/70 (units unknown) (unknown) (unknown) (no date) (unknown) (unknown) Blood Pressure 74/40 L (units unknown) (unknown) (unknown) (no date) (unknown) (unknown) Blood Pressure 77/42 L 80/45 L (units unknown) (unknown) (unknown) (no date) (unknown) (unknown) Blood Pressure 78/43 L (units unknown) (unknown) (unknown) (no date) (unknown) (unknown) Blood Pressure 80/44 L 79/43 L (units unknown) (unknown) (unknown) (no date) (unknown) (unknown) CIWAPRN PRN Administration (units unknown) (unknown) (unknown) (no date) (unknown) (unknown) Calcium 8.4 (units unknown) (unknown) (unknown) (no date) (unknown) (unknown) Calcium (units unknown) (unknown) (unknown) (no date) (unknown) (unknown) Carbon Dioxide 33 H (units unknown) (unknown) (unknown) (no date) (unknown) (unknown) Carbon Dioxide (units unknown) (unknown) (unknown) (no date) (unknown) (unknown) Cardio (units unknown) (unknown) (unknown) (no date) (unknown) (unknown) Chief complaint: needs to detox (units unknown) (unknown) (unknown) (no date) (unknown) (unknown) Chlordiazepoxide 25 Mg Capsule PO Not Given (units unknown) (unknown) (unknown) (no date) (unknown) (unknown) Chlordiazepoxide HCl 50 mg 08/09/22 00:00 08/09/22 01:13 (units unknown) (unknown) (unknown) (no date) (unknown) (unknown) Chloride 104 (units unknown) (unknown) (unknown) (no date) (unknown) (unknown) Chloride (units unknown) (unknown) (unknown) (no date) (unknown) (unknown) Confirmed 08/01/22] (units unknown) (unknown) (unknown) (no date) (unknown) (unknown) Consent obtained for tele-bioinformatics technician care: Yes (units unknown) (unknown) (unknown) (no date) (unknown) (unknown) Const (units unknown) (unknown) (unknown) (no date) (unknown) (unknown) Consult details (units unknown) (unknown) (unknown) (no date) (unknown) (unknown) Creatinine 0.76 (units unknown) (unknown) (unknown) (no date) (unknown) (unknown) Creatinine (units unknown) (unknown) (unknown) (no date) (unknown) (unknown) Current Medications (units unknown) (unknown) (unknown) (no date) (unknown) (unknown) : 1990 Acct:[id number] (units unknown) (unknown) (unknown) (no date) (unknown) (unknown) Date of Service: 08/08/22 (units unknown) (unknown) (unknown) (no date) (unknown) (unknown) Effort + Inspection: normal respiratory effort (units unknown) (unknown) (unknown) (no date) (unknown) (unknown) Eos # (Auto) 0 (units unknown) (unknown) (unknown) (no date) (unknown) (unknown) Eos # (Auto) (units unknown) (unknown) (unknown) (no date) (unknown) (unknown) Eos % (Auto) 0.8 L (units unknown) (unknown) (unknown) (no date) (unknown) (unknown) Eos % (Auto) (units unknown) (unknown) (unknown) (no date) (unknown) (unknown) Estimated GFR > 60 (units unknown) (unknown) (unknown) (no date) (unknown) (unknown) Estimated GFR (units unknown) (unknown) (unknown) (no date) (unknown) (unknown) EtOH. Had been on EtOH binge since discharge. Given phenobarbital in ED but (units unknown) (unknown) (unknown) (no date) (unknown) (unknown) Ethyl Alcohol 393 H (units unknown) (unknown) (unknown) (no date) (unknown) (unknown) Ethyl Alcohol (units unknown) (unknown) (unknown) (no date) (unknown) (unknown) Exam (units unknown) (unknown) (unknown) (no date) (unknown) (unknown) Family History (units unknown) (unknown) (unknown) (no date) (unknown) (unknown) Family/Other Alcoholism (units unknown) (unknown) (unknown) (no date) (unknown) (unknown) Family/Other Diabete s mellitus (units unknown) (unknown) (unknown) (no date) (unknown) (unknown) Father Alcoholism (units unknown) (unknown) (unknown) (no date) (unknown) (unknown) Fourth visit to ED this month for intoxication. Just discharged 5 days ago for (units unknown) (unknown) (unknown) (no date) (unknown) (unknown) General: comfortable (units unknown) (unknown) (unknown) (no date) (unknown) (unknown) Generic Name Dose Route Start Last Admin (units unknown) (unknown) (unknown) (no date) (unknown) (unknown) Globulin 3.3 (units unknown) (unknown) (unknown) (no date) (unknown) (unknown) Globulin (units unknown) (unknown) (unknown) (no date) (unknown) (unknown) Glucose 92 (units unknown) (unknown) (unknown) (no date) (unknown) (unknown) Glucose (units unknown) (unknown) (unknown) (no date) (unknown) (unknown) Grandfather Smoker (units unknown) (unknown) (unknown) (no date) (unknown) (unknown) Grandfather Unknown whether patient has any health problems (units unknown) (unknown) (unknown) (no date) (unknown) (unknown) Grandmother Diabetes mellitus (units unknown) (unknown) (unknown) (no date) (unknown) (unknown) Grandmother Hypoglycemia (units unknown) (unknown) (unknown) (no date) (unknown) (unknown) H/O dilation and curettage (-12/14/16) (units unknown) (unknown) (unknown) (no date) (unknown) (unknown) H/O wisdom tooth extraction () (units unknown) (unknown) (unknown) (no date) (unknown) (unknown) Hct 37.0 (units unknown) (unknown) (unknown) (no date) (unknown) (unknown) Hct (units unknown) (unknown) (unknown) (no date) (unknown) (unknown) Hgb 11.9 L (units unknown) (unknown) (unknown) (no date) (unknown) (unknown) Hgb (units unknown) (unknown) (unknown) (no date) (unknown) (unknown) History of Present Illness (units unknown) (unknown) (unknown) (no date) (unknown) (unknown) Home Medications (units unknown) (unknown) (unknown) (no date) (unknown) (unknown) IF CAMERA ACTIVATED, patient seen via real-time interactive audiovisual (units unknown) (unknown) (unknown) (no date) (unknown) (unknown) Insomnia (units unknown) (unknown) (unknown) (no date) (unknown) (unknown) [address] [address] (units unknown) (unknown) (unknown) (no date) (unknown) (unknown) Laboratory Results - last 24 hr (units unknown) (unknown) (unknown) (no date) (unknown) (unknown) Labs (units unknown) (unknown) (unknown) (no date) (unknown) (unknown) Labs: (units unknown) (unknown) (unknown) (no date) (unknown) (unknown) Lipase 408 H (units unknown) (unknown) (unknown) (no date) (unknown) (unknown) Lipase (units unknown) (unknown) (unknown) (no date) (unknown) (unknown) Lorazepam 0 mg 08/08/22 22:48 08/08/22 23:00 (units unknown) (unknown) (unknown) (no date) (unknown) (unknown) Lorazepam 2 Mg/Ml In j IV 2 mg (units unknown) (unknown) (unknown) (no date) (unknown) (unknown) Lymph # (Auto) 2600 (units unknown) (unknown) (unknown) (no date) (unknown) (unknown) Lymph # (Auto) (units unknown) (unknown) (unknown) (no date) (unknown) (unknown) Lymph % (Auto) 51.5 H (units unknown) (unknown) (unknown) (no date) (unknown) (unknown) Lymph % (Auto) (units unknown) (unknown) (unknown) (no date) (unknown) (unknown) MCH 25.7 L (units unknown) (unknown) (unknown) (no date) (unknown) (unknown) MCH (units unknown) (unknown) (unknown) (no date) (unknown) (unknown) MCHC 32.1 (units unknown) (unknown) (unknown) (no date) (unknown) (unknown) MCHC (units unknown) (unknown) (unknown) (no date) (unknown) (unknown) MCV 80.2 (units unknown) (unknown) (unknown) (no date) (unknown) (unknown) MCV (units unknown) (unknown) (unknown) (no date) (unknown) (unknown) Magnesium 2.2 (units unknown) (unknown) (unknown) (no date) (unknown) (unknown) Magnesium (units unknown) (unknown) (unknown) (no date) (unknown) (unknown) Medical History (units unknown) (unknown) (unknown) (no date) (unknown) (unknown) Medications: (units unknown) (unknown) (unknown) (no date) (unknown) (unknown) Menometrorrhagia (units unknown) (unknown) (unknown) (no date) (unknown) (unknown) [place] # (Auto) 400 (units unknown) (unknown) (unknown) (no date) (unknown) (unknown) [place] # (Auto) (units unknown) (unknown) (unknown) (no date) (unknown) (unknown) [place] % (Auto) 8.6 (units unknown) (unknown) (unknown) (no date) (unknown) (unknown) [place] % (Auto) (units unknown) (unknown) (unknown) (no date) (unknown) (unknown) Mother Diabetes mellitus (units unknown) (unknown) (unknown) (no date) (unknown) (unknown) Narrative: (units unknown) (unknown) (unknown) (no date) (unknown) (unknown) Nausea And Vomiting (units unknown) (unknown) (unknown) (no date) (unknown) (unknown) Neut # (Auto) 1900 (units unknown) (unknown) (unknown) (no date) (unknown) (unknown) Neut # (Auto) (units unknown) (unknown) (unknown) (no date) (unknown) (unknown) Neut % (Auto) 36.6 L (units unknown) (unknown) (unknown) (no date) (unknown) (unknown) Neut % (Auto) (units unknown) (unknown) (unknown) (no date) (unknown) (unknown) Obesity (units unknown) (unknown) (unknown) (no date) (unknown) (unknown) Objective (units unknown) (unknown) (unknown) (no date) (unknown) (unknown) Ondansetron 4 Mg/2 M l Inj IV 4 mg (units unknown) (unknown) (unknown) (no date) (unknown) (unknown) Ondansetron HCl 4 mg 08/08/22 22:48 08/08/22 23:09 (units unknown) (unknown) (unknown) (no date) (unknown) (unknown) 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: RN (units unknown) (unknown) (unknown) (no date) (unknown) (unknown) Overweight (units unknown) (unknown) (unknown) (no date) (unknown) (unknown) Oxygen Delivery Method Room Air (units unknown) (unknown) (unknown) (no date) (unknown) (unknown) PFSH (units unknown) (unknown) (unknown) (no date) (unknown) (unknown) Patient Location: ICU (units unknown) (unknown) (unknown) (no date) (unknown) (unknown) Patient: Sarah Connors MR#: M (units unknown) (unknown) (unknown) (no date) (unknown) (unknown) Plan: (units unknown) (unknown) (unknown) (no date) (unknown) (unknown) Plt Count 396 (units unknown) (unknown) (unknown) (no date) (unknown) (unknown) Plt Count (units unknown) (unknown) (unknown) (no date) (unknown) (unknown) Potassium 3.6 (units unknown) (unknown) (unknown) (no date) (unknown) (unknown) Potassium (units unknown) (unknown) (unknown) (no date) (unknown) (unknown) Precedex IV 0.2 mcg/kg/hr (units unknown) (unknown) (unknown) (no date) (unknown) (unknown) Protocol (units unknown) (unknown) (unknown) (no date) (unknown) (unknown) Provider location (State): [place] (units unknown) (unknown) (unknown) (no date) (unknown) (unknown) Provider: Roberto Vasquez MD (units unknown) (unknown) (unknown) (no date) (unknown) (unknown) Pulse Oximetry 94 (units unknown) (unknown) (unknown) (no date) (unknown) (unknown) Pulse Oximetry 95 95 (units unknown) (unknown) (unknown) (no date) (unknown) (unknown) Pulse Oximetry 95 (units unknown) (unknown) (unknown) (no date) (unknown) (unknown) Pulse Oximetry 96 94 (units unknown) (unknown) (unknown) (no date) (unknown) (unknown) Pulse Rate 75 75 (units unknown) (unknown) (unknown) (no date) (unknown) (unknown) Pulse Rate 75 (units unknown) (unknown) (unknown) (no date) (unknown) (unknown) Pulse Rate 79 76 (units unknown) (unknown) (unknown) (no date) (unknown) (unknown) Pulse Rate 83 83 (units unknown) (unknown) (unknown) (no date) (unknown) (unknown) Pulse Rate 93 H 89 (units unknown) (unknown) (unknown) (no date) (unknown) (unknown) Q6HR SANDY (units unknown) (unknown) (unknown) (no date) (unknown) (unknown) Q8HR PRN Administration (units unknown) (unknown) (unknown) (no date) (unknown) (unknown) RBC 4.61 (units unknown) (unknown) (unknown) (no date) (unknown) (unknown) RBC (units unknown) (unknown) (unknown) (no date) (unknown) (unknown) RDW 19.7 H (units unknown) (unknown) (unknown) (no date) (unknown) (unknown) RDW (units unknown) (unknown) (unknown) (no date) (unknown) (unknown) Rate: regular rate (units unknown) (unknown) (unknown) (no date) (unknown) (unknown) Resp (units unknown) (unknown) (unknown) (no date) (unknown) (unknown) Respiratory Rate 14 19 (units unknown) (unknown) (unknown) (no date) (unknown) (unknown) Respiratory Rate 21 20 (units unknown) (unknown) (unknown) (no date) (unknown) (unknown) Respiratory Rate 22 23 (units unknown) (unknown) (unknown) (no date) (unknown) (unknown) Respiratory Rate 27 H (units unknown) (unknown) (unknown) (no date) (unknown) (unknown) Respiratory Rate 37 H 16 (units unknown) (unknown) (unknown) (no date) (unknown) (unknown) Respiratory Rate 37 H (units unknown) (unknown) (unknown) (no date) (unknown) (unknown) Review of Systems (units unknown) (unknown) (unknown) (no date) (unknown) (unknown) Rhythm: regular rhythm (units unknown) (unknown) (unknown) (no date) (unknown) (unknown) S/P myringotomy with insertion of tube (units unknown) (unknown) (unknown) (no date) (unknown) (unknown) SARS-CoV-2 (PCR) Negative (units unknown) (unknown) (unknown) (no date) (unknown) (unknown) SARS-CoV-2 (PCR) (units unknown) (unknown) (unknown) (no date) (unknown) (unknown) (spontaneous vaginal delivery) (-09/05/18) (units unknown) (unknown) (unknown) (no date) (unknown) (unknown) Signed By: (units unknown) (unknown) (unknown) (no date) (unknown) (unknown) Sleeping comfortably ; did not awaken pt (units unknown) (unknown) (unknown) (no date) (unknown) (unknown) Smoker (units unknown) (unknown) (unknown) (no date) (unknown) (unknown) Smoking Status: Former smoker (units unknown) (unknown) (unknown) (no date) (unknown) (unknown) Social History (units unknown) (unknown) (unknown) (no date) (unknown) (unknown) Sodium 148 H D (units unknown) (unknown) (unknown) (no date) (unknown) (unknown) Sodium (units unknown) (unknown) (unknown) (no date) (unknown) (unknown) Status: Acute (units unknown) (unknown) (unknown) (no date) (unknown) (unknown) Surgical History (units unknown) (unknown) (unknown) (no date) (unknown) (unknown) TITRATE SANDY 2.699 mls/hr (units unknown) (unknown) (unknown) (no date) (unknown) (unknown) 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 (units unknown) (unknown) (unknown) (no date) (unknown) (unknown) Titration (units unknown) (unknown) (unknown) (no date) (unknown) (unknown) Total Bilirubin 0.4 (units unknown) (unknown) (unknown) (no date) (unknown) (unknown) Total Bilirubin (units unknown) (unknown) (unknown) (no date) (unknown) (unknown) Total Protein 7.7 (units unknown) (unknown) (unknown) (no date) (unknown) (unknown) Total Protein (units unknown) (unknown) (unknown) (no date) (unknown) (unknown) Trade Name Edel PRN Reason Stop Dose Admin (units unknown) (unknown) (unknown) (no date) (unknown) (unknown) U Benzodiazepines Scrn Positive H (units unknown) (unknown) (unknown) (no date) (unknown) (unknown) U Benzodiazepines Scrn (units unknown) (unknown) (unknown) (no date) (unknown) (unknown) U Marijuana (THC) Screen Negative (units unknown) (unknown) (unknown) (no date) (unknown) (unknown) U Marijuana (THC) Screen (units unknown) (unknown) (unknown) (no date) (unknown) (unknown) U Methamphetamines Scrn Negative (units unknown) (unknown) (unknown) (no date) (unknown) (unknown) U Methamphetamines Scrn (units unknown) (unknown) (unknown) (no date) (unknown) (unknown) U Opiates 300ng/mL cut Negative (units unknown) (unknown) (unknown) (no date) (unknown) (unknown) U Opiates 300ng/mL cut (units unknown) (unknown) (unknown) (no date) (unknown) (unknown) U Tricyclic Antidepress Positive H (units unknown) (unknown) (unknown) (no date) (unknown) (unknown) U Tricyclic Antidepress (units unknown) (unknown) (unknown) (no date) (unknown) (unknown) Ur Amphetamines Screen Negative (units unknown) (unknown) (unknown) (no date) (unknown) (unknown) Ur Amphetamines Screen (units unknown) (unknown) (unknown) (no date) (unknown) (unknown) Ur Barbiturates Screen Positive H (units unknown) (unknown) (unknown) (no date) (unknown) (unknown) Ur Barbiturates Screen (units unknown) (unknown) (unknown) (no date) (unknown) (unknown) Ur Culture Indicated ? Specimen cultured (units unknown) (unknown) (unknown) (no date) (unknown) (unknown) Ur Culture Indicated? (units unknown) (unknown) (unknown) (no date) (unknown) (unknown) Ur Leukocyte [place] e 1+ H (units unknown) (unknown) (unknown) (no date) (unknown) (unknown) Ur Leukocyte Esterase (units unknown) (unknown) (unknown) (no date) (unknown) (unknown) Ur MDMA Scrn (Ecstasy) Negative (units unknown) (unknown) (unknown) (no date) (unknown) (unknown) Ur MDMA Scrn (Ecstasy) (units unknown) (unknown) (unknown) (no date) (unknown) (unknown) Ur Oxycodone Screen Negative (units unknown) (unknown) (unknown) (no date) (unknown) (unknown) Ur Oxycodone Screen (units unknown) (unknown) (unknown) (no date) (unknown) (unknown) Ur Phencyclidine Scr n Negative (units unknown) (unknown) (unknown) (no date) (unknown) (unknown) Ur Phencyclidine Scrn (units unknown) (unknown) (unknown) (no date) (unknown) (unknown) Ur Specific [place] 1.015 (units unknown) (unknown) (unknown) (no date) (unknown) (unknown) Ur Specific [place] (units unknown) (unknown) (unknown) (no date) (unknown) (unknown) Urine Appearance Clear (units unknown) (unknown) (unknown) (no date) (unknown) (unknown) Urine Appearance (units unknown) (unknown) (unknown) (no date) (unknown) (unknown) Urine Bacteria Many (>30) H (units unknown) (unknown) (unknown) (no date) (unknown) (unknown) Urine Bacteria (units unknown) (unknown) (unknown) (no date) (unknown) (unknown) Urine Bilirubin Negative (units unknown) (unknown) (unknown) (no date) (unknown) (unknown) Urine Bilirubin (units unknown) (unknown) (unknown) (no date) (unknown) (unknown) Urine Cocaine Screen Negative (units unknown) (unknown) (unknown) (no date) (unknown) (unknown) Urine Cocaine Screen (units unknown) (unknown) (unknown) (no date) (unknown) (unknown) Urine Color Yellow (units unknown) (unknown) (unknown) (no date) (unknown) (unknown) Urine Color (units unknown) (unknown) (unknown) (no date) (unknown) (unknown) Urine Glucose (UA) Negative (units unknown) (unknown) (unknown) (no date) (unknown) (unknown) Urine Glucose (UA) (units unknown) (unknown) (unknown) (no date) (unknown) (unknown) Urine Ketones Negative (units unknown) (unknown) (unknown) (no date) (unknown) (unknown) Urine Ketones (units unknown) (unknown) (unknown) (no date) (unknown) (unknown) Urine Methadone Screen Negative (units unknown) (unknown) (unknown) (no date) (unknown) (unknown) Urine Methadone Screen (units unknown) (unknown) (unknown) (no date) (unknown) (unknown) Urine Nitrate Positive H (units unknown) (unknown) (unknown) (no date) (unknown) (unknown) Urine Nitrate (units unknown) (unknown) (unknown) (no date) (unknown) (unknown) Urine Occult Blood Negative (units unknown) (unknown) (unknown) (no date) (unknown) (unknown) Urine Occult Blood (units unknown) (unknown) (unknown) (no date) (unknown) (unknown) Urine Test Negative (units unknown) (unknown) (unknown) (no date) (unknown) (unknown) Urine Test (units unknown) (unknown) (unknown) (no date) (unknown) (unknown) Urine Protein Negative (units unknown) (unknown) (unknown) (no date) (unknown) (unknown) Urine Protein (units unknown) (unknown) (unknown) (no date) (unknown) (unknown) Urine RBC None seen (units unknown) (unknown) (unknown) (no date) (unknown) (unknown) Urine RBC (units unknown) (unknown) (unknown) (no date) (unknown) (unknown) Urine Urobilinogen 0.2 (units unknown) (unknown) (unknown) (no date) (unknown) (unknown) Urine Urobilinogen (units unknown) (unknown) (unknown) (no date) (unknown) (unknown) Urine WBC 10-30/hpf H (units unknown) (unknown) (unknown) (no date) (unknown) (unknown) Urine WBC (units unknown) (unknown) (unknown) (no date) (unknown) (unknown) Urine pH 6.0 (units unknown) (unknown) (unknown) (no date) (unknown) (unknown) Urine pH (units unknown) (unknown) (unknown) (no date) (unknown) (unknown) Visit Medications (administered) (units unknown) (unknown) (unknown) (no date) (unknown) (unknown) Vital Signs (units unknown) (unknown) (unknown) (no date) (unknown) (unknown) WBC 5.1 (units unknown) (unknown) (unknown) (no date) (unknown) (unknown) WBC (units unknown) (unknown) (unknown) (no date) (unknown) (unknown) [Embedded Image Not Available] (units unknown) (unknown) (unknown) (no date) (unknown) (unknown) [Rx Confirmed 08/01/22] (units unknown) (unknown) (unknown) (no date) (unknown) (unknown) alcohol intake: current (units unknown) (unknown) (unknown) (no date) (unknown) (unknown) chlordiazepoxide HCl 25 mg capsule See Rx Instructions .Route .COMPLEX #30 caps (units unknown) (unknown) (unknown) (no date) (unknown) (unknown) communication: [place] a activated (units unknown) (unknown) (unknown) (no date) (unknown) (unknown) current occupational exposures/hazards: Yes (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 with Pandemic ) (units unknown) (unknown) (unknown) (no date) (unknown) (unknown) dexmedeTOMIDine in 0.9 % NaCL 400 mcg in 100 mls @ 2.699 mls/hr 08/08/22 22:48 (units unknown) (unknown) (unknown) (no date) (unknown) (unknown) disulfiram 250 mg tablet 250 mg PO DAILY #30 tabs 08/03/22 [Rx] (units unknown) (unknown) (unknown) (no date) (unknown) (unknown) education level: college 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[employer] (units unknown) (unknown) (unknown) (no date) (unknown) (unknown) fluoxetine 10 mg capsule 10 mg PO DAILY 07/13/22 [History Confirmed 08/01/22] (units unknown) (unknown) (unknown) (no date) (unknown) (unknown) household members: significant other (units unknown) (unknown) (unknown) (no date) (unknown) (unknown) hydroxyzine HCl 50 m g tablet 50 mg PO DAILY 07/13/22 [History Confirmed (units unknown) (unknown) (unknown) (no date) (unknown) (unknown) marital status: (units unknown) (unknown) (unknown) (no date) (unknown) (unknown) multivitamin with folic acid 400 mcg tablet (Tab-A-Kael) 1 tab PO DAILY #30 tabs (units unknown) (unknown) (unknown) (no date) (unknown) (unknown) number of children: 1 (units unknown) (unknown) (unknown) (no date) (unknown) (unknown) occupational status: employed (units unknown) (unknown) (unknown) (no date) (unknown) (unknown) pantoprazole 40 mg tablet,delayed release 40 mg PO 0700 #30 tabs 07/14/22 [Rx (units unknown) (unknown) (unknown) (no date) (unknown) (unknown) quetiapine 300 mg tablet 300 mg PO DAILY 07/13/22 [History Confirmed 08/01/22] (units unknown) (unknown) (unknown) (no date) (unknown) (unknown) second hand exposure : No (growing up as a child - not currently) (units unknown) (unknown) (unknown) (no date) (unknown) (unknown) special renee needs: No (units unknown) (unknown) (unknown) (no date) (unknown) (unknown) substance use type: does not use (units unknown) (unknown) (unknown) (no date) (unknown) (unknown) thiamine mononitrate (vit B1) 100 mg tablet 100 mg PO DAILY #30 tabs 07/14/22 (units unknown) (unknown) (unknown) (no date) (unknown) (unknown) ultimately started o n Precedex - this is currently @ 0.2 mcg/kg/hr. (units unknown) (unknown) Result panel [id number] (unknown) (no date) (unknown) (unknown) > 60 ml/min (unknown) (unknown) (no date) (unknown) (unknown) > 60 ml/min (unknown) (unknown) (no date) (unknown) (unknown) 0.90 mg/dl (unknown) (unknown) (no date) (unknown) (unknown) 107 mmol/l (unknown) (unknown) (no date) (unknown) (unknown) 145 mmol/l (unknown) (unknown) (no date) (unknown) (unknown) 3.5 mmol/l (unknown) (unknown) (no date) (unknown) (unknown) 30 mmol/l (unknown) (unknown) (no date) (unknown) (unknown) 7.7 mg/dl (unknown) (unknown) (no date) (unknown) (unknown) 8 mg/dl (unknown) (unknown) (no date) (unknown) (unknown) 8.9 (units unknown) (unknown) (unknown) (no date) (unknown) (unknown) 84 mg/dl (unknown) (unknown) (no date) (unknown) (unknown) 84 mg/dl (unknown) Result panel 2294 (unknown) (no date) (unknown) (unknown) (no value) (units unknown) (unknown) (unknown) (no date) (unknown) (unknown) (1) Alcohol withdrawal delirium, acute, hyperactive: (units unknown) (unknown) (unknown) (no date) (unknown) (unknown) (2) Abnormal urinalysis: (units unknown) (unknown) (unknown) (no date) (unknown) (unknown) (past 8 hours): (units unknown) (unknown) (unknown) (no date) (unknown) (unknown) -Continue CIWA-directed lorazepam, Libirium, Precedex, thiamine, folate as per (units unknown) (unknown) (unknown) (no date) (unknown) (unknown) -Follow up on reflexed culture (units unknown) (unknown) (unknown) (no date) (unknown) (unknown) 0.2 MCG/KG/HR (units unknown) (unknown) (unknown) (no date) (unknown) (unknown) [id number] (units unknown) (unknown) (unknown) (no date) (unknown) (unknown) 00:00 08/09/22 (units unknown) (unknown) (unknown) (no date) (unknown) (unknown) 00:00 (units unknown) (unknown) (unknown) (no date) (unknown) (unknown) 01:00 08/09/22 (units unknown) (unknown) (unknown) (no date) (unknown) (unknown) 01:06 08/09/22 (units unknown) (unknown) (unknown) (no date) (unknown) (unknown) 01:06 (units unknown) (unknown) (unknown) (no date) (unknown) (unknown) 01:29 08/09/22 (units unknown) (unknown) (unknown) (no date) (unknown) (unknown) 01:29 (units unknown) (unknown) (unknown) (no date) (unknown) (unknown) 02:00 08/09/22 (units unknown) (unknown) (unknown) (no date) (unknown) (unknown) 07/14/22 [Rx Confirmed 08/01/22] (units unknown) (unknown) (unknown) (no date) (unknown) (unknown) 08/01/22] (units unknown) (unknown) (unknown) (no date) (unknown) (unknown) 08/03/22 [Rx] (units unknown) (unknown) (unknown) (no date) (unknown) (unknown) 08/08/22 08/08/22 08/08/22 (units unknown) (unknown) (unknown) (no date) (unknown) (unknown) 08/08/22 08/08/22 08/09/22 (units unknown) (unknown) (unknown) (no date) (unknown) (unknown) 08/08/22 21:00 (units unknown) (unknown) (unknown) (no date) (unknown) (unknown) 08/08/22 (units unknown) (unknown) (unknown) (no date) (unknown) (unknown) 08/09/22 08/09/22 (units unknown) (unknown) (unknown) (no date) (unknown) (unknown) 08/09/22 04:01 (units unknown) (unknown) (unknown) (no date) (unknown) (unknown) 08/09/22 0508 (units unknown) (unknown) (unknown) (no date) (unknown) (unknown) 08/09/22 (units unknown) (unknown) (unknown) (no date) (unknown) (unknown) 03:00 08/09/22 (units unknown) (unknown) (unknown) (no date) (unknown) (unknown) 03:00 (units unknown) (unknown) (unknown) (no date) (unknown) (unknown) 03:02 08/09/22 (units unknown) (unknown) (unknown) (no date) (unknown) (unknown) 03:02 (units unknown) (unknown) (unknown) (no date) (unknown) (unknown) 04:30 04:30 (units unknown) (unknown) (unknown) (no date) (unknown) (unknown) 21:00 21:00 21:00 (units unknown) (unknown) (unknown) (no date) (unknown) (unknown) 21:00 22:30 04:30 (units unknown) (unknown) (unknown) (no date) (unknown) (unknown) 22:53 08/08/22 (units unknown) (unknown) (unknown) (no date) (unknown) (unknown) 23:00 08/08/22 (units unknown) (unknown) (unknown) (no date) (unknown) (unknown) 23:00 (units unknown) (unknown) (unknown) (no date) (unknown) (unknown) 23:24 08/09/22 (units unknown) (unknown) (unknown) (no date) (unknown) (unknown) 31 y.o. admitted for EtOH intoxication, withdrawal and seizure. CIWA of 17. (units unknown) (unknown) (unknown) (no date) (unknown) (unknown) ALT 64 H (units unknown) (unknown) (unknown) (no date) (unknown) (unknown) ALT (units unknown) (unknown) (unknown) (no date) (unknown) (unknown) AST 424 H (units unknown) (unknown) (unknown) (no date) (unknown) (unknown) AST (units unknown) (unknown) (unknown) (no date) (unknown) (unknown) Age/Sex: 31 / F (units unknown) (unknown) (unknown) (no date) (unknown) (unknown) Albumin 4.4 (units unknown) (unknown) (unknown) (no date) (unknown) (unknown) Albumin (units unknown) (unknown) (unknown) (no date) (unknown) (unknown) Albumin/Globulin Ratio 1.3 (units unknown) (unknown) (unknown) (no date) (unknown) (unknown) Albumin/Globulin Ratio (units unknown) (unknown) (unknown) (no date) (unknown) (unknown) Alcohol Withdrawal (units unknown) (unknown) (unknown) (no date) (unknown) (unknown) Alcohol withdrawal delirium, acute, hyperactive (units unknown) (unknown) (unknown) (no date) (unknown) (unknown) Alcoholism (units unknown) (unknown) (unknown) (no date) (unknown) (unknown) Alkaline Phosphatase 71 (units unknown) (unknown) (unknown) (no date) (unknown) (unknown) Alkaline Phosphatase (units unknown) (unknown) (unknown) (no date) (unknown) (unknown) Anemia (-2018) (units unknown) (unknown) (unknown) (no date) (unknown) (unknown) Assessment + Plan (units unknown) (unknown) (unknown) (no date) (unknown) (unknown) Assessment and plan (units unknown) (unknown) (unknown) (no date) (unknown) (unknown) BUN 7 (units unknown) (unknown) (unknown) (no date) (unknown) (unknown) BUN (units unknown) (unknown) (unknown) (no date) (unknown) (unknown) BUN/Creatinine Ratio 9.2 (units unknown) (unknown) (unknown) (no date) (unknown) (unknown) BUN/Creatinine Ratio (units unknown) (unknown) (unknown) (no date) (unknown) (unknown) Baso # (Auto) 100 (units unknown) (unknown) (unknown) (no date) (unknown) (unknown) Baso # (Auto) (units unknown) (unknown) (unknown) (no date) (unknown) (unknown) Baso % (Auto) 2.5 H (units unknown) (unknown) (unknown) (no date) (unknown) (unknown) Baso % (Auto) (units unknown) (unknown) (unknown) (no date) (unknown) (unknown) Blood Pressure 109/7 0 75/40 L (units unknown) (unknown) (unknown) (no date) (unknown) (unknown) Blood Pressure 109/70 (units unknown) (unknown) (unknown) (no date) (unknown) (unknown) Blood Pressure 74/40 L (units unknown) (unknown) (unknown) (no date) (unknown) (unknown) Blood Pressure 77/42 L 80/45 L (units unknown) (unknown) (unknown) (no date) (unknown) (unknown) Blood Pressure 78/43 L (units unknown) (unknown) (unknown) (no date) (unknown) (unknown) Blood Pressure 80/44 L 79/43 L (units unknown) (unknown) (unknown) (no date) (unknown) (unknown) CIWAPRN PRN Administration (units unknown) (unknown) (unknown) (no date) (unknown) (unknown) Calcium 8.4 (units unknown) (unknown) (unknown) (no date) (unknown) (unknown) Calcium (units unknown) (unknown) (unknown) (no date) (unknown) (unknown) Carbon Dioxide 33 H (units unknown) (unknown) (unknown) (no date) (unknown) (unknown) Carbon Dioxide (units unknown) (unknown) (unknown) (no date) (unknown) (unknown) Cardio (units unknown) (unknown) (unknown) (no date) (unknown) (unknown) Chief complaint: needs to detox (units unknown) (unknown) (unknown) (no date) (unknown) (unknown) Chlordiazepoxide 25 Mg Capsule PO Not Given (units unknown) (unknown) (unknown) (no date) (unknown) (unknown) Chlordiazepoxide HCl 50 mg 08/09/22 00:00 08/09/22 01:13 (units unknown) (unknown) (unknown) (no date) (unknown) (unknown) Chloride 104 (units unknown) (unknown) (unknown) (no date) (unknown) (unknown) Chloride (units unknown) (unknown) (unknown) (no date) (unknown) (unknown) Confirmed 08/01/22] (units unknown) (unknown) (unknown) (no date) (unknown) (unknown) Consent obtained for tele-bioinformatics technician care: Yes (units unknown) (unknown) (unknown) (no date) (unknown) (unknown) Const (units unknown) (unknown) (unknown) (no date) (unknown) (unknown) Consult details (units unknown) (unknown) (unknown) (no date) (unknown) (unknown) Creatinine 0.76 (units unknown) (unknown) (unknown) (no date) (unknown) (unknown) Creatinine (units unknown) (unknown) (unknown) (no date) (unknown) (unknown) Current Medications (units unknown) (unknown) (unknown) (no date) (unknown) (unknown) : 1990 Acct:[id number] (units unknown) (unknown) (unknown) (no date) (unknown) (unknown) Date of Service: 08/08/22 (units unknown) (unknown) (unknown) (no date) (unknown) (unknown) Effort + Inspection: normal respiratory effort (units unknown) (unknown) (unknown) (no date) (unknown) (unknown) Eos # (Auto) 0 (units unknown) (unknown) (unknown) (no date) (unknown) (unknown) Eos # (Auto) (units unknown) (unknown) (unknown) (no date) (unknown) (unknown) Eos % (Auto) 0.8 L (units unknown) (unknown) (unknown) (no date) (unknown) (unknown) Eos % (Auto) (units unknown) (unknown) (unknown) (no date) (unknown) (unknown) Estimated GFR > 60 (units unknown) (unknown) (unknown) (no date) (unknown) (unknown) Estimated GFR (units unknown) (unknown) (unknown) (no date) (unknown) (unknown) EtOH. Had been on EtOH binge since discharge. Given phenobarbital in ED but (units unknown) (unknown) (unknown) (no date) (unknown) (unknown) Ethyl Alcohol 393 H (units unknown) (unknown) (unknown) (no date) (unknown) (unknown) Ethyl Alcohol (units unknown) (unknown) (unknown) (no date) (unknown) (unknown) Exam (units unknown) (unknown) (unknown) (no date) (unknown) (unknown) Family History (units unknown) (unknown) (unknown) (no date) (unknown) (unknown) Family/Other Alcoholism (units unknown) (unknown) (unknown) (no date) (unknown) (unknown) Family/Other Diabete s mellitus (units unknown) (unknown) (unknown) (no date) (unknown) (unknown) Father Alcoholism (units unknown) (unknown) (unknown) (no date) (unknown) (unknown) Fourth visit to ED this month for intoxication. Just discharged 5 days ago for (units unknown) (unknown) (unknown) (no date) (unknown) (unknown) General: comfortable (units unknown) (unknown) (unknown) (no date) (unknown) (unknown) Generic Name Dose Route Start Last Admin (units unknown) (unknown) (unknown) (no date) (unknown) (unknown) Globulin 3.3 (units unknown) (unknown) (unknown) (no date) (unknown) (unknown) Globulin (units unknown) (unknown) (unknown) (no date) (unknown) (unknown) Glucose 92 (units unknown) (unknown) (unknown) (no date) (unknown) (unknown) Glucose (units unknown) (unknown) (unknown) (no date) (unknown) (unknown) Grandfather Smoker (units unknown) (unknown) (unknown) (no date) (unknown) (unknown) Grandfather Unknown whether patient has any health problems (units unknown) (unknown) (unknown) (no date) (unknown) (unknown) Grandmother Diabetes mellitus (units unknown) (unknown) (unknown) (no date) (unknown) (unknown) Grandmother Hypoglycemia (units unknown) (unknown) (unknown) (no date) (unknown) (unknown) H/O dilation and curettage (-12/14/16) (units unknown) (unknown) (unknown) (no date) (unknown) (unknown) H/O wisdom tooth extraction () (units unknown) (unknown) (unknown) (no date) (unknown) (unknown) Hct 37.0 (units unknown) (unknown) (unknown) (no date) (unknown) (unknown) Hct (units unknown) (unknown) (unknown) (no date) (unknown) (unknown) Hgb 11.9 L (units unknown) (unknown) (unknown) (no date) (unknown) (unknown) Hgb (units unknown) (unknown) (unknown) (no date) (unknown) (unknown) History of Present Illness (units unknown) (unknown) (unknown) (no date) (unknown) (unknown) Home Medications (units unknown) (unknown) (unknown) (no date) (unknown) (unknown) IF [place] ACTIVATED, patient seen via real-time interactive audiovisual (units unknown) (unknown) (unknown) (no date) (unknown) (unknown) Insomnia (units unknown) (unknown) (unknown) (no date) (unknown) (unknown) [address] [address] (units unknown) (unknown) (unknown) (no date) (unknown) (unknown) Laboratory Results - last 24 hr (units unknown) (unknown) (unknown) (no date) (unknown) (unknown) Labs (units unknown) (unknown) (unknown) (no date) (unknown) (unknown) Labs: (units unknown) (unknown) (unknown) (no date) (unknown) (unknown) Lipase 408 H (units unknown) (unknown) (unknown) (no date) (unknown) (unknown) Lipase (units unknown) (unknown) (unknown) (no date) (unknown) (unknown) Lorazepam 0 mg 08/08/22 22:48 08/08/22 23:00 (units unknown) (unknown) (unknown) (no date) (unknown) (unknown) Lorazepam 2 Mg/Ml In j IV 2 mg (units unknown) (unknown) (unknown) (no date) (unknown) (unknown) Lymph # (Auto) 2600 (units unknown) (unknown) (unknown) (no date) (unknown) (unknown) Lymph # (Auto) (units unknown) (unknown) (unknown) (no date) (unknown) (unknown) Lymph % (Auto) 51.5 H (units unknown) (unknown) (unknown) (no date) (unknown) (unknown) Lymph % (Auto) (units unknown) (unknown) (unknown) (no date) (unknown) (unknown) MCH 25.7 L (units unknown) (unknown) (unknown) (no date) (unknown) (unknown) MCH (units unknown) (unknown) (unknown) (no date) (unknown) (unknown) MCHC 32.1 (units unknown) (unknown) (unknown) (no date) (unknown) (unknown) MCHC (units unknown) (unknown) (unknown) (no date) (unknown) (unknown) MCV 80.2 (units unknown) (unknown) (unknown) (no date) (unknown) (unknown) MCV (units unknown) (unknown) (unknown) (no date) (unknown) (unknown) Magnesium 2.2 (units unknown) (unknown) (unknown) (no date) (unknown) (unknown) Magnesium (units unknown) (unknown) (unknown) (no date) (unknown) (unknown) Medical History (units unknown) (unknown) (unknown) (no date) (unknown) (unknown) Medications: (units unknown) (unknown) (unknown) (no date) (unknown) (unknown) Menometrorrhagia (units unknown) (unknown) (unknown) (no date) (unknown) (unknown) [place] # (Auto) 400 (units unknown) (unknown) (unknown) (no date) (unknown) (unknown) [place] # (Auto) (units unknown) (unknown) (unknown) (no date) (unknown) (unknown) [place] % (Auto) 8.6 (units unknown) (unknown) (unknown) (no date) (unknown) (unknown) [place] % (Auto) (units unknown) (unknown) (unknown) (no date) (unknown) (unknown) Mother Diabetes mellitus (units unknown) (unknown) (unknown) (no date) (unknown) (unknown) Narrative: (units unknown) (unknown) (unknown) (no date) (unknown) (unknown) Nausea And Vomiting (units unknown) (unknown) (unknown) (no date) (unknown) (unknown) Neut # (Auto) 1900 (units unknown) (unknown) (unknown) (no date) (unknown) (unknown) Neut # (Auto) (units unknown) (unknown) (unknown) (no date) (unknown) (unknown) Neut % (Auto) 36.6 L (units unknown) (unknown) (unknown) (no date) (unknown) (unknown) Neut % (Auto) (units unknown) (unknown) (unknown) (no date) (unknown) (unknown) Obesity (units unknown) (unknown) (unknown) (no date) (unknown) (unknown) Objective (units unknown) (unknown) (unknown) (no date) (unknown) (unknown) Ondansetron 4 Mg/2 M l Inj IV 4 mg (units unknown) (unknown) (unknown) (no date) (unknown) (unknown) Ondansetron HCl 4 mg 08/08/22 22:48 08/08/22 23:09 (units unknown) (unknown) (unknown) (no date) (unknown) (unknown) 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: RN (units unknown) (unknown) (unknown) (no date) (unknown) (unknown) Overweight (units unknown) (unknown) (unknown) (no date) (unknown) (unknown) Oxygen Delivery Method Room Air (units unknown) (unknown) (unknown) (no date) (unknown) (unknown) PFSH (units unknown) (unknown) (unknown) (no date) (unknown) (unknown) Patient Location: ICU (units unknown) (unknown) (unknown) (no date) (unknown) (unknown) Patient: Sarah Connors MR#: M (units unknown) (unknown) (unknown) (no date) (unknown) (unknown) Plan: (units unknown) (unknown) (unknown) (no date) (unknown) (unknown) Plt Count 396 (units unknown) (unknown) (unknown) (no date) (unknown) (unknown) Plt Count (units unknown) (unknown) (unknown) (no date) (unknown) (unknown) Potassium 3.6 (units unknown) (unknown) (unknown) (no date) (unknown) (unknown) Potassium (units unknown) (unknown) (unknown) (no date) (unknown) (unknown) Precedex IV 0.2 mcg/kg/hr (units unknown) (unknown) (unknown) (no date) (unknown) (unknown) Protocol (units unknown) (unknown) (unknown) (no date) (unknown) (unknown) Provider location (State): [place] (units unknown) (unknown) (unknown) (no date) (unknown) (unknown) Provider: Roberto Vasquez MD (units unknown) (unknown) (unknown) (no date) (unknown) (unknown) Pulse Oximetry 94 (units unknown) (unknown) (unknown) (no date) (unknown) (unknown) Pulse Oximetry 95 95 (units unknown) (unknown) (unknown) (no date) (unknown) (unknown) Pulse Oximetry 95 (units unknown) (unknown) (unknown) (no date) (unknown) (unknown) Pulse Oximetry 96 94 (units unknown) (unknown) (unknown) (no date) (unknown) (unknown) Pulse Rate 75 75 (units unknown) (unknown) (unknown) (no date) (unknown) (unknown) Pulse Rate 75 (units unknown) (unknown) (unknown) (no date) (unknown) (unknown) Pulse Rate 79 76 (units unknown) (unknown) (unknown) (no date) (unknown) (unknown) Pulse Rate 83 83 (units unknown) (unknown) (unknown) (no date) (unknown) (unknown) Pulse Rate 93 H 89 (units unknown) (unknown) (unknown) (no date) (unknown) (unknown) Q6HR SANDY (units unknown) (unknown) (unknown) (no date) (unknown) (unknown) Q8HR PRN Administration (units unknown) (unknown) (unknown) (no date) (unknown) (unknown) RBC 4.61 (units unknown) (unknown) (unknown) (no date) (unknown) (unknown) RBC (units unknown) (unknown) (unknown) (no date) (unknown) (unknown) RDW 19.7 H (units unknown) (unknown) (unknown) (no date) (unknown) (unknown) RDW (units unknown) (unknown) (unknown) (no date) (unknown) (unknown) Rate: regular rate (units unknown) (unknown) (unknown) (no date) (unknown) (unknown) Resp (units unknown) (unknown) (unknown) (no date) (unknown) (unknown) Respiratory Rate 14 19 (units unknown) (unknown) (unknown) (no date) (unknown) (unknown) Respiratory Rate 21 20 (units unknown) (unknown) (unknown) (no date) (unknown) (unknown) Respiratory Rate 22 23 (units unknown) (unknown) (unknown) (no date) (unknown) (unknown) Respiratory Rate 27 H (units unknown) (unknown) (unknown) (no date) (unknown) (unknown) Respiratory Rate 37 H 16 (units unknown) (unknown) (unknown) (no date) (unknown) (unknown) Respiratory Rate 37 H (units unknown) (unknown) (unknown) (no date) (unknown) (unknown) Review of Systems (units unknown) (unknown) (unknown) (no date) (unknown) (unknown) Rhythm: regular rhythm (units unknown) (unknown) (unknown) (no date) (unknown) (unknown) S/P myringotomy with insertion of tube (units unknown) (unknown) (unknown) (no date) (unknown) (unknown) SARS-CoV-2 (PCR) Negative (units unknown) (unknown) (unknown) (no date) (unknown) (unknown) SARS-CoV-2 (PCR) (units unknown) (unknown) (unknown) (no date) (unknown) (unknown) (spontaneous vaginal delivery) (-09/05/18) (units unknown) (unknown) (unknown) (no date) (unknown) (unknown) Signed By:<Electronically signed by Roberto Vasquez MD> (units unknown) (unknown) (unknown) (no date) (unknown) (unknown) Sleeping comfortably ; did not awaken pt (units unknown) (unknown) (unknown) (no date) (unknown) (unknown) Smoker (units unknown) (unknown) (unknown) (no date) (unknown) (unknown) Smoking Status: Former smoker (units unknown) (unknown) (unknown) (no date) (unknown) (unknown) Social History (units unknown) (unknown) (unknown) (no date) (unknown) (unknown) Sodium 148 H D (units unknown) (unknown) (unknown) (no date) (unknown) (unknown) Sodium (units unknown) (unknown) (unknown) (no date) (unknown) (unknown) Status: Acute (units unknown) (unknown) (unknown) (no date) (unknown) (unknown) Surgical History (units unknown) (unknown) (unknown) (no date) (unknown) (unknown) TITRATE SANDY 2.699 mls/hr (units unknown) (unknown) (unknown) (no date) (unknown) (unknown) 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 (units unknown) (unknown) (unknown) (no date) (unknown) (unknown) Time Spent With Patient (units unknown) (unknown) (unknown) (no date) (unknown) (unknown) Time with patient: less than 30 minutes (units unknown) (unknown) (unknown) (no date) (unknown) (unknown) Titration (units unknown) (unknown) (unknown) (no date) (unknown) (unknown) Total Bilirubin 0.4 (units unknown) (unknown) (unknown) (no date) (unknown) (unknown) Total Bilirubin (units unknown) (unknown) (unknown) (no date) (unknown) (unknown) Total Protein 7.7 (units unknown) (unknown) (unknown) (no date) (unknown) (unknown) Total Protein (units unknown) (unknown) (unknown) (no date) (unknown) (unknown) Trade Name Edel PRN Reason Stop Dose Admin (units unknown) (unknown) (unknown) (no date) (unknown) (unknown) U Benzodiazepines Scrn Positive H (units unknown) (unknown) (unknown) (no date) (unknown) (unknown) U Benzodiazepines Scrn (units unknown) (unknown) (unknown) (no date) (unknown) (unknown) U Marijuana (THC) Screen Negative (units unknown) (unknown) (unknown) (no date) (unknown) (unknown) U Marijuana (THC) Screen (units unknown) (unknown) (unknown) (no date) (unknown) (unknown) U Methamphetamines Scrn Negative (units unknown) (unknown) (unknown) (no date) (unknown) (unknown) U Methamphetamines Scrn (units unknown) (unknown) (unknown) (no date) (unknown) (unknown) U Opiates 300ng/mL cut Negative (units unknown) (unknown) (unknown) (no date) (unknown) (unknown) U Opiates 300ng/mL cut (units unknown) (unknown) (unknown) (no date) (unknown) (unknown) U Tricyclic Antidepress Positive H (units unknown) (unknown) (unknown) (no date) (unknown) (unknown) U Tricyclic Antidepress (units unknown) (unknown) (unknown) (no date) (unknown) (unknown) Ur Amphetamines Screen Negative (units unknown) (unknown) (unknown) (no date) (unknown) (unknown) Ur Amphetamines Screen (units unknown) (unknown) (unknown) (no date) (unknown) (unknown) Ur Barbiturates Screen Positive H (units unknown) (unknown) (unknown) (no date) (unknown) (unknown) Ur Barbiturates Screen (units unknown) (unknown) (unknown) (no date) (unknown) (unknown) Ur Culture Indicated ? Specimen cultured (units unknown) (unknown) (unknown) (no date) (unknown) (unknown) Ur Culture Indicated? (units unknown) (unknown) (unknown) (no date) (unknown) (unknown) Ur Leukocyte [place] e 1+ H (units unknown) (unknown) (unknown) (no date) (unknown) (unknown) Ur Leukocyte Esterase (units unknown) (unknown) (unknown) (no date) (unknown) (unknown) Ur MDMA Scrn (Ecstasy) Negative (units unknown) (unknown) (unknown) (no date) (unknown) (unknown) Ur MDMA Scrn (Ecstasy) (units unknown) (unknown) (unknown) (no date) (unknown) (unknown) Ur Oxycodone Screen Negative (units unknown) (unknown) (unknown) (no date) (unknown) (unknown) Ur Oxycodone Screen (units unknown) (unknown) (unknown) (no date) (unknown) (unknown) Ur Phencyclidine Scr n Negative (units unknown) (unknown) (unknown) (no date) (unknown) (unknown) Ur Phencyclidine Scrn (units unknown) (unknown) (unknown) (no date) (unknown) (unknown) Ur Specific [place] 1.015 (units unknown) (unknown) (unknown) (no date) (unknown) (unknown) Ur Specific [place] (units unknown) (unknown) (unknown) (no date) (unknown) (unknown) Urine Appearance Clear (units unknown) (unknown) (unknown) (no date) (unknown) (unknown) Urine Appearance (units unknown) (unknown) (unknown) (no date) (unknown) (unknown) Urine Bacteria Many (>30) H (units unknown) (unknown) (unknown) (no date) (unknown) (unknown) Urine Bacteria (units unknown) (unknown) (unknown) (no date) (unknown) (unknown) Urine Bilirubin Negative (units unknown) (unknown) (unknown) (no date) (unknown) (unknown) Urine Bilirubin (units unknown) (unknown) (unknown) (no date) (unknown) (unknown) Urine Cocaine Screen Negative (units unknown) (unknown) (unknown) (no date) (unknown) (unknown) Urine Cocaine Screen (units unknown) (unknown) (unknown) (no date) (unknown) (unknown) Urine Color Yellow (units unknown) (unknown) (unknown) (no date) (unknown) (unknown) Urine Color (units unknown) (unknown) (unknown) (no date) (unknown) (unknown) Urine Glucose (UA) Negative (units unknown) (unknown) (unknown) (no date) (unknown) (unknown) Urine Glucose (UA) (units unknown) (unknown) (unknown) (no date) (unknown) (unknown) Urine Ketones Negative (units unknown) (unknown) (unknown) (no date) (unknown) (unknown) Urine Ketones (units unknown) (unknown) (unknown) (no date) (unknown) (unknown) Urine Methadone Screen Negative (units unknown) (unknown) (unknown) (no date) (unknown) (unknown) Urine Methadone Screen (units unknown) (unknown) (unknown) (no date) (unknown) (unknown) Urine Nitrate Positive H (units unknown) (unknown) (unknown) (no date) (unknown) (unknown) Urine Nitrate (units unknown) (unknown) (unknown) (no date) (unknown) (unknown) Urine Occult Blood Negative (units unknown) (unknown) (unknown) (no date) (unknown) (unknown) Urine Occult Blood (units unknown) (unknown) (unknown) (no date) (unknown) (unknown) Urine Test Negative (units unknown) (unknown) (unknown) (no date) (unknown) (unknown) Urine Test (units unknown) (unknown) (unknown) (no date) (unknown) (unknown) Urine Protein Negative (units unknown) (unknown) (unknown) (no date) (unknown) (unknown) Urine Protein (units unknown) (unknown) (unknown) (no date) (unknown) (unknown) Urine RBC None seen (units unknown) (unknown) (unknown) (no date) (unknown) (unknown) Urine RBC (units unknown) (unknown) (unknown) (no date) (unknown) (unknown) Urine Urobilinogen 0.2 (units unknown) (unknown) (unknown) (no date) (unknown) (unknown) Urine Urobilinogen (units unknown) (unknown) (unknown) (no date) (unknown) (unknown) Urine WBC 10-30/hpf H (units unknown) (unknown) (unknown) (no date) (unknown) (unknown) Urine WBC (units unknown) (unknown) (unknown) (no date) (unknown) (unknown) Urine pH 6.0 (units unknown) (unknown) (unknown) (no date) (unknown) (unknown) Urine pH (units unknown) (unknown) (unknown) (no date) (unknown) (unknown) Visit Medications (administered) (units unknown) (unknown) (unknown) (no date) (unknown) (unknown) Vital Signs (units unknown) (unknown) (unknown) (no date) (unknown) (unknown) WBC 5.1 (units unknown) (unknown) (unknown) (no date) (unknown) (unknown) WBC (units unknown) (unknown) (unknown) (no date) (unknown) (unknown) [Embedded Image Not Available] (units unknown) (unknown) (unknown) (no date) (unknown) (unknown) [Rx Confirmed 08/01/22] (units unknown) (unknown) (unknown) (no date) (unknown) (unknown) alcohol intake: current (units unknown) (unknown) (unknown) (no date) (unknown) (unknown) bedside team (units unknown) (unknown) (unknown) (no date) (unknown) (unknown) chlordiazepoxide HCl 25 mg capsule See Rx Instructions .Route .COMPLEX #30 caps (units unknown) (unknown) (unknown) (no date) (unknown) (unknown) communication: [place] a activated (units unknown) (unknown) (unknown) (no date) (unknown) (unknown) current occupational exposures/hazards: Yes (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 with Pandemic ) (units unknown) (unknown) (unknown) (no date) (unknown) (unknown) dexmedeTOMIDine in 0.9 % NaCL 400 mcg in 100 mls @ 2.699 mls/hr 08/08/22 22:48 (units unknown) (unknown) (unknown) (no date) (unknown) (unknown) disulfiram 250 mg tablet 250 mg PO DAILY #30 tabs 08/03/22 [Rx] (units unknown) (unknown) (unknown) (no date) (unknown) (unknown) education level: college 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[employer] (units unknown) (unknown) (unknown) (no date) (unknown) (unknown) fluoxetine 10 mg capsule 10 mg PO DAILY 07/13/22 [History Confirmed 08/01/22] (units unknown) (unknown) (unknown) (no date) (unknown) (unknown) household members: significant other (units unknown) (unknown) (unknown) (no date) (unknown) (unknown) hydroxyzine HCl 50 m g tablet 50 mg PO DAILY 07/13/22 [History Confirmed (units unknown) (unknown) (unknown) (no date) (unknown) (unknown) marital status: (units unknown) (unknown) (unknown) (no date) (unknown) (unknown) multivitamin with folic acid 400 mcg tablet (Tab-A-Kael) 1 tab PO DAILY #30 tabs (units unknown) (unknown) (unknown) (no date) (unknown) (unknown) number of children: 1 (units unknown) (unknown) (unknown) (no date) (unknown) (unknown) occupational status: employed (units unknown) (unknown) (unknown) (no date) (unknown) (unknown) pantoprazole 40 mg tablet,delayed release 40 mg PO 0700 #30 tabs 07/14/22 [Rx (units unknown) (unknown) (unknown) (no date) (unknown) (unknown) quetiapine 300 mg tablet 300 mg PO DAILY 07/13/22 [History Confirmed 08/01/22] (units unknown) (unknown) (unknown) (no date) (unknown) (unknown) second hand exposure : No (growing up as a child - not currently) (units unknown) (unknown) (unknown) (no date) (unknown) (unknown) special renee needs: No (units unknown) (unknown) (unknown) (no date) (unknown) (unknown) substance use type: does not use (units unknown) (unknown) (unknown) (no date) (unknown) (unknown) thiamine mononitrate (vit B1) 100 mg tablet 100 mg PO DAILY #30 tabs 07/14/22 (units unknown) (unknown) (unknown) (no date) (unknown) (unknown) ultimately started o n Precedex - this is currently @ 0.2 mcg/kg/hr. (units unknown) (unknown) Result panel 2295 (unknown) (no date) (unknown) (unknown) (no value) (units unknown) (unknown) (unknown) (no date) (unknown) (unknown) [id number] (units unknown) (unknown) (unknown) (no date) (unknown) (unknown) 08/09/22 0532 (units unknown) (unknown) (unknown) (no date) (unknown) (unknown) :: Patients MAP in the high 50s, on low-dose Precedex, HR in the 50s. Has not (units unknown) (unknown) (unknown) (no date) (unknown) (unknown) Age/Sex: 31 / F (units unknown) (unknown) (unknown) (no date) (unknown) (unknown) : 1990 Acct:[id number] (units unknown) (unknown) (unknown) (no date) (unknown) (unknown) Date of Service: 08/08/22 (units unknown) (unknown) (unknown) (no date) (unknown) (unknown) Date/Time (units unknown) (unknown) (unknown) (no date) (unknown) (unknown) Intervention(s) (units unknown) (unknown) (unknown) (no date) (unknown) (unknown) [address] [address] (units unknown) (unknown) (unknown) (no date) (unknown) (unknown) Issue(s) Addressed (units unknown) (unknown) (unknown) (no date) (unknown) (unknown) Issue(s): Shock/hypotension (units unknown) (unknown) (unknown) (no date) (unknown) (unknown) Levophed. Consider also antibiotic coverage given UA in the setting of (units unknown) (unknown) (unknown) (no date) (unknown) (unknown) Patient: Sarah Connors MR#: M (units unknown) (unknown) (unknown) (no date) (unknown) (unknown) Provider: Deepika Erickson (units unknown) (unknown) (unknown) (no date) (unknown) (unknown) Signed By:<Electronically signed by Deepika Erickson> (units unknown) (unknown) (unknown) (no date) (unknown) (unknown) Teleintensivist Intervention (units unknown) (unknown) (unknown) (no date) (unknown) (unknown) Was camera activated?: Yes (units unknown) (unknown) (unknown) (no date) (unknown) (unknown) hypotension. (units unknown) (unknown) (unknown) (no date) (unknown) (unknown) received any IVF since admission. Will give 1L LR bolus now, if BP remains low (units unknown) (unknown) (unknown) (no date) (unknown) (unknown) will repeat bolus. I f BP persistently soft following IVF bolus, will start (units unknown) (unknown) Result panel 2296 (unknown) (no date) (unknown) (unknown) 0.0 md/dl (unknown) (unknown) (no date) (unknown) (unknown) 0.0 mg/dl (unknown) (unknown) (no date) (unknown) (unknown) 0.3 mg/dl (unknown) (unknown) (no date) (unknown) (unknown) 0.3 mg/dl (unknown) (unknown) (no date) (unknown) (unknown) 1.5 (units unknown) (unknown) (unknown) (no date) (unknown) (unknown) 2.4 g/dl (unknown) (unknown) (no date) (unknown) (unknown) 288 iu/l (unknown) (unknown) (no date) (unknown) (unknown) 3.6 g/dl (unknown) (unknown) (no date) (unknown) (unknown) 51 iu/l (unknown) (unknown) (no date) (unknown) (unknown) 59 u/l (unknown) (unknown) (no date) (unknown) (unknown) 6.0 g/dl (unknown) Result panel 2297 (unknown) (no date) (unknown) (unknown) (no value) (units unknown) (unknown) (unknown) (no date) (unknown) (unknown) (past 8 hours): (units unknown) (unknown) (unknown) (no date) (unknown) (unknown) 0.2 MCG/KG/HR (units unknown) (unknown) (unknown) (no date) (unknown) (unknown) [id number] (units unknown) (unknown) (unknown) (no date) (unknown) (unknown) 01:00 08/09/22 (units unknown) (unknown) (unknown) (no date) (unknown) (unknown) 01:06 08/09/22 (units unknown) (unknown) (unknown) (no date) (unknown) (unknown) 01:06 (units unknown) (unknown) (unknown) (no date) (unknown) (unknown) 01:29 08/09/22 (units unknown) (unknown) (unknown) (no date) (unknown) (unknown) 01:29 (units unknown) (unknown) (unknown) (no date) (unknown) (unknown) 02:00 08/09/22 (units unknown) (unknown) (unknown) (no date) (unknown) (unknown) 07/14/22 [Rx Confirmed 08/01/22] (units unknown) (unknown) (unknown) (no date) (unknown) (unknown) 08/01/22] (units unknown) (unknown) (unknown) (no date) (unknown) (unknown) 08/03/22 [Rx] (units unknown) (unknown) (unknown) (no date) (unknown) (unknown) 08/08/22 08/08/22 08/08/22 (units unknown) (unknown) (unknown) (no date) (unknown) (unknown) 08/08/22 08/08/22 08/09/22 (units unknown) (unknown) (unknown) (no date) (unknown) (unknown) 08/09/22 08/09/22 08/09/22 (units unknown) (unknown) (unknown) (no date) (unknown) (unknown) 08/09/22 08/09/22 (units unknown) (unknown) (unknown) (no date) (unknown) (unknown) 08/09/22 04:16 (units unknown) (unknown) (unknown) (no date) (unknown) (unknown) 08/09/22 05:06 (units unknown) (unknown) (unknown) (no date) (unknown) (unknown) 08/09/22 (units unknown) (unknown) (unknown) (no date) (unknown) (unknown) 03:00 08/09/22 (units unknown) (unknown) (unknown) (no date) (unknown) (unknown) 03:00 (units unknown) (unknown) (unknown) (no date) (unknown) (unknown) 03:02 08/09/22 (units unknown) (unknown) (unknown) (no date) (unknown) (unknown) 03:02 (units unknown) (unknown) (unknown) (no date) (unknown) (unknown) 04:00 08/09/22 (units unknown) (unknown) (unknown) (no date) (unknown) (unknown) 04:16 04:16 04:30 (units unknown) (unknown) (unknown) (no date) (unknown) (unknown) 04:20 08/09/22 (units unknown) (unknown) (unknown) (no date) (unknown) (unknown) 04:20 (units unknown) (unknown) (unknown) (no date) (unknown) (unknown) 04:30 04:30 (units unknown) (unknown) (unknown) (no date) (unknown) (unknown) 05:00 08/09/22 (units unknown) (unknown) (unknown) (no date) (unknown) (unknown) 05:00 (units unknown) (unknown) (unknown) (no date) (unknown) (unknown) 05:02 08/09/22 (units unknown) (unknown) (unknown) (no date) (unknown) (unknown) 05:20 08/09/22 (units unknown) (unknown) (unknown) (no date) (unknown) (unknown) 05:20 (units unknown) (unknown) (unknown) (no date) (unknown) (unknown) 05:34 08/09/22 (units unknown) (unknown) (unknown) (no date) (unknown) (unknown) 05:34 (units unknown) (unknown) (unknown) (no date) (unknown) (unknown) 06:00 08/09/22 (units unknown) (unknown) (unknown) (no date) (unknown) (unknown) 06:24 08/09/22 (units unknown) (unknown) (unknown) (no date) (unknown) (unknown) 06:24 (units unknown) (unknown) (unknown) (no date) (unknown) (unknown) 07:00 08/09/22 (units unknown) (unknown) (unknown) (no date) (unknown) (unknown) 07:00 (units unknown) (unknown) (unknown) (no date) (unknown) (unknown) 07:35 (units unknown) (unknown) (unknown) (no date) (unknown) (unknown) 21:00 21:00 21:00 (units unknown) (unknown) (unknown) (no date) (unknown) (unknown) 21:00 22:30 04:16 (units unknown) (unknown) (unknown) (no date) (unknown) (unknown) ALT 51 H (units unknown) (unknown) (unknown) (no date) (unknown) (unknown) ALT 64 H (units unknown) (unknown) (unknown) (no date) (unknown) (unknown) ALT (units unknown) (unknown) (unknown) (no date) (unknown) (unknown) AST 288 H (units unknown) (unknown) (unknown) (no date) (unknown) (unknown) AST 424 H (units unknown) (unknown) (unknown) (no date) (unknown) (unknown) AST (units unknown) (unknown) (unknown) (no date) (unknown) (unknown) Age/Sex: 31 / F (units unknown) (unknown) (unknown) (no date) (unknown) (unknown) Albumin 3.6 (units unknown) (unknown) (unknown) (no date) (unknown) (unknown) Albumin 4.4 (units unknown) (unknown) (unknown) (no date) (unknown) (unknown) Albumin (units unknown) (unknown) (unknown) (no date) (unknown) (unknown) Albumin/Globulin Ratio 1.3 (units unknown) (unknown) (unknown) (no date) (unknown) (unknown) Albumin/Globulin Ratio 1.5 (units unknown) (unknown) (unknown) (no date) (unknown) (unknown) Albumin/Globulin Ratio (units unknown) (unknown) (unknown) (no date) (unknown) (unknown) Alcohol Withdrawal (units unknown) (unknown) (unknown) (no date) (unknown) (unknown) Alkaline Phosphatase 59 (units unknown) (unknown) (unknown) (no date) (unknown) (unknown) Alkaline Phosphatase 71 (units unknown) (unknown) (unknown) (no date) (unknown) (unknown) Alkaline Phosphatase (units unknown) (unknown) (unknown) (no date) (unknown) (unknown) BUN 7 (units unknown) (unknown) (unknown) (no date) (unknown) (unknown) BUN 8 (units unknown) (unknown) (unknown) (no date) (unknown) (unknown) BUN (units unknown) (unknown) (unknown) (no date) (unknown) (unknown) BUN/Creatinine Ratio 8.9 (units unknown) (unknown) (unknown) (no date) (unknown) (unknown) BUN/Creatinine Ratio 9.2 (units unknown) (unknown) (unknown) (no date) (unknown) (unknown) BUN/Creatinine Ratio (units unknown) (unknown) (unknown) (no date) (unknown) (unknown) Baso # (Auto) 100 (units unknown) (unknown) (unknown) (no date) (unknown) (unknown) Baso # (Auto) (units unknown) (unknown) (unknown) (no date) (unknown) (unknown) Baso % (Auto) 1.9 (units unknown) (unknown) (unknown) (no date) (unknown) (unknown) Baso % (Auto) 2.5 H (units unknown) (unknown) (unknown) (no date) (unknown) (unknown) Baso % (Auto) (units unknown) (unknown) (unknown) (no date) (unknown) (unknown) Blood Pressure 73/40 L 75/39 L (units unknown) (unknown) (unknown) (no date) (unknown) (unknown) Blood Pressure 74/40 L (units unknown) (unknown) (unknown) (no date) (unknown) (unknown) Blood Pressure 77/42 L 80/45 L (units unknown) (unknown) (unknown) (no date) (unknown) (unknown) Blood Pressure 77/47 L (units unknown) (unknown) (unknown) (no date) (unknown) (unknown) Blood Pressure 78/43 L (units unknown) (unknown) (unknown) (no date) (unknown) (unknown) Blood Pressure 78/48 L (units unknown) (unknown) (unknown) (no date) (unknown) (unknown) Blood Pressure 80/44 L 79/43 L (units unknown) (unknown) (unknown) (no date) (unknown) (unknown) Blood Pressure 82/44 L 71/42 L (units unknown) (unknown) (unknown) (no date) (unknown) (unknown) Blood Pressure 86/53 L 83/50 L (units unknown) (unknown) (unknown) (no date) (unknown) (unknown) CIWAPRN PRN Administration (units unknown) (unknown) (unknown) (no date) (unknown) (unknown) Calcium 7.7 L (units unknown) (unknown) (unknown) (no date) (unknown) (unknown) Calcium 8.4 (units unknown) (unknown) (unknown) (no date) (unknown) (unknown) Calcium (units unknown) (unknown) (unknown) (no date) (unknown) (unknown) Carbon Dioxide 30 (units unknown) (unknown) (unknown) (no date) (unknown) (unknown) Carbon Dioxide 33 H (units unknown) (unknown) (unknown) (no date) (unknown) (unknown) Carbon Dioxide (units unknown) (unknown) (unknown) (no date) (unknown) (unknown) Ceftriaxone Sodium 1,000 mg/ 100 mls @ 200 mls/hr 08/09/22 07:00 08/09/22 (units unknown) (unknown) (unknown) (no date) (unknown) (unknown) Chlordiazepoxide 25 Mg Capsule PO 50 mg (units unknown) (unknown) (unknown) (no date) (unknown) (unknown) Chlordiazepoxide HCl 50 mg 08/09/22 00:00 08/09/22 06:12 (units unknown) (unknown) (unknown) (no date) (unknown) (unknown) Chloride 104 (units unknown) (unknown) (unknown) (no date) (unknown) (unknown) Chloride 107 (units unknown) (unknown) (unknown) (no date) (unknown) (unknown) Chloride (units unknown) (unknown) (unknown) (no date) (unknown) (unknown) Confirmed 08/01/22] (units unknown) (unknown) (unknown) (no date) (unknown) (unknown) Conjugated Bilirubin 0.0 (units unknown) (unknown) (unknown) (no date) (unknown) (unknown) Conjugated Bilirubin (units unknown) (unknown) (unknown) (no date) (unknown) (unknown) Consent obtained for tele-bioinformatics technician care: Yes (units unknown) (unknown) (unknown) (no date) (unknown) (unknown) Creatinine 0.76 (units unknown) (unknown) (unknown) (no date) (unknown) (unknown) Creatinine 0.90 (units unknown) (unknown) (unknown) (no date) (unknown) (unknown) Creatinine (units unknown) (unknown) (unknown) (no date) (unknown) (unknown) Current Medications (units unknown) (unknown) (unknown) (no date) (unknown) (unknown) : 1990 Acct:[id number] (units unknown) (unknown) (unknown) (no date) (unknown) (unknown) Date of Service: 08/08/22 (units unknown) (unknown) (unknown) (no date) (unknown) (unknown) Deep Vein Thrombosis/Pulmonary Embolism Present on Admission: No (units unknown) (unknown) (unknown) (no date) (unknown) (unknown) Eos # (Auto) 0 (units unknown) (unknown) (unknown) (no date) (unknown) (unknown) Eos # (Auto) (units unknown) (unknown) (unknown) (no date) (unknown) (unknown) Eos % (Auto) 0.7 L (units unknown) (unknown) (unknown) (no date) (unknown) (unknown) Eos % (Auto) 0.8 L (units unknown) (unknown) (unknown) (no date) (unknown) (unknown) Eos % (Auto) (units unknown) (unknown) (unknown) (no date) (unknown) (unknown) Estimated GFR > 60 (units unknown) (unknown) (unknown) (no date) (unknown) (unknown) Estimated GFR (units unknown) (unknown) (unknown) (no date) (unknown) (unknown) Ethyl Alcohol 393 H (units unknown) (unknown) (unknown) (no date) (unknown) (unknown) Ethyl Alcohol (units unknown) (unknown) (unknown) (no date) (unknown) (unknown) Exam Narrative: (units unknown) (unknown) (unknown) (no date) (unknown) (unknown) Exam (units unknown) (unknown) (unknown) (no date) (unknown) (unknown) Generic Name Dose Route Start Last Admin (units unknown) (unknown) (unknown) (no date) (unknown) (unknown) Globulin 2.4 (units unknown) (unknown) (unknown) (no date) (unknown) (unknown) Globulin 3.3 (units unknown) (unknown) (unknown) (no date) (unknown) (unknown) Globulin (units unknown) (unknown) (unknown) (no date) (unknown) (unknown) Glucose 84 (units unknown) (unknown) (unknown) (no date) (unknown) (unknown) Glucose 92 (units unknown) (unknown) (unknown) (no date) (unknown) (unknown) Glucose (units unknown) (unknown) (unknown) (no date) (unknown) (unknown) Hct 31.4 L (units unknown) (unknown) (unknown) (no date) (unknown) (unknown) Hct 37.0 (units unknown) (unknown) (unknown) (no date) (unknown) (unknown) Hct (units unknown) (unknown) (unknown) (no date) (unknown) (unknown) Hgb 10.1 L (units unknown) (unknown) (unknown) (no date) (unknown) (unknown) Hgb 11.9 L (units unknown) (unknown) (unknown) (no date) (unknown) (unknown) Hgb (units unknown) (unknown) (unknown) (no date) (unknown) (unknown) Home Medications (units unknown) (unknown) (unknown) (no date) (unknown) (unknown) IF CAMERA ACTIVATED, patient seen via real-time interactive audiovisual (units unknown) (unknown) (unknown) (no date) (unknown) (unknown) Interval history: (units unknown) (unknown) (unknown) (no date) (unknown) (unknown) [address] [address] (units unknown) (unknown) (unknown) (no date) (unknown) (unknown) LR this am after BP 80's/40's (units unknown) (unknown) (unknown) (no date) (unknown) (unknown) Laboratory Results - last 24 hr (units unknown) (unknown) (unknown) (no date) (unknown) (unknown) Labs (units unknown) (unknown) (unknown) (no date) (unknown) (unknown) Labs: (units unknown) (unknown) (unknown) (no date) (unknown) (unknown) Lipase 408 H (units unknown) (unknown) (unknown) (no date) (unknown) (unknown) Lipase (units unknown) (unknown) (unknown) (no date) (unknown) (unknown) Lorazepam 0 mg 08/08/22 22:48 08/08/22 23:00 (units unknown) (unknown) (unknown) (no date) (unknown) (unknown) Lorazepam 2 Mg/Ml In j IV 2 mg (units unknown) (unknown) (unknown) (no date) (unknown) (unknown) Lymph # (Auto) 2600 (units unknown) (unknown) (unknown) (no date) (unknown) (unknown) Lymph # (Auto) 2800 (units unknown) (unknown) (unknown) (no date) (unknown) (unknown) Lymph # (Auto) (units unknown) (unknown) (unknown) (no date) (unknown) (unknown) Lymph % (Auto) 51.5 H (units unknown) (unknown) (unknown) (no date) (unknown) (unknown) Lymph % (Auto) 54.2 H (units unknown) (unknown) (unknown) (no date) (unknown) (unknown) Lymph % (Auto) (units unknown) (unknown) (unknown) (no date) (unknown) (unknown) MCH 25.4 L (units unknown) (unknown) (unknown) (no date) (unknown) (unknown) MCH 25.7 L (units unknown) (unknown) (unknown) (no date) (unknown) (unknown) MCH (units unknown) (unknown) (unknown) (no date) (unknown) (unknown) MCHC 32.1 (units unknown) (unknown) (unknown) (no date) (unknown) (unknown) MCHC 32.2 (units unknown) (unknown) (unknown) (no date) (unknown) (unknown) MCHC (units unknown) (unknown) (unknown) (no date) (unknown) (unknown) MCV 79.0 L (units unknown) (unknown) (unknown) (no date) (unknown) (unknown) MCV 80.2 (units unknown) (unknown) (unknown) (no date) (unknown) (unknown) MCV (units unknown) (unknown) (unknown) (no date) (unknown) (unknown) Magnesium 2.2 (units unknown) (unknown) (unknown) (no date) (unknown) (unknown) Magnesium (units unknown) (unknown) (unknown) (no date) (unknown) (unknown) Medications: (units unknown) (unknown) (unknown) (no date) (unknown) (unknown) [place] # (Auto) 300 (units unknown) (unknown) (unknown) (no date) (unknown) (unknown) [place] # (Auto) 400 (units unknown) (unknown) (unknown) (no date) (unknown) (unknown) [place] # (Auto) (units unknown) (unknown) (unknown) (no date) (unknown) (unknown) [place] % (Auto) 6.5 (units unknown) (unknown) (unknown) (no date) (unknown) (unknown) [place] % (Auto) 8.6 (units unknown) (unknown) (unknown) (no date) (unknown) (unknown) [place] % (Auto) (units unknown) (unknown) (unknown) (no date) (unknown) (unknown) Narrative (units unknown) (unknown) (unknown) (no date) (unknown) (unknown) Nausea And Vomiting (units unknown) (unknown) (unknown) (no date) (unknown) (unknown) Neut # (Auto) 1900 (units unknown) (unknown) (unknown) (no date) (unknown) (unknown) Neut # (Auto) (units unknown) (unknown) (unknown) (no date) (unknown) (unknown) Neut % (Auto) 36.6 L (units unknown) (unknown) (unknown) (no date) (unknown) (unknown) Neut % (Auto) 36.7 L (units unknown) (unknown) (unknown) (no date) (unknown) (unknown) Neut % (Auto) (units unknown) (unknown) (unknown) (no date) (unknown) (unknown) No distress, on room air (units unknown) (unknown) (unknown) (no date) (unknown) (unknown) Objective (units unknown) (unknown) (unknown) (no date) (unknown) (unknown) Ondansetron 4 Mg/2 M l Inj IV 4 mg (units unknown) (unknown) (unknown) (no date) (unknown) (unknown) Ondansetron HCl 4 mg 08/08/22 22:48 08/08/22 23:09 (units unknown) (unknown) (unknown) (no date) (unknown) (unknown) 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: Bedside RN (units unknown) (unknown) (unknown) (no date) (unknown) (unknown) Oxygen Delivery Method Room Air (units unknown) (unknown) (unknown) (no date) (unknown) (unknown) Patient Location: ICU (units unknown) (unknown) (unknown) (no date) (unknown) (unknown) Patient admitted for alcohol withdrawal. Precedex gtt turned off at 5 am- She (units unknown) (unknown) (unknown) (no date) (unknown) (unknown) Patient: DorySarah R MR#: M (units unknown) (unknown) (unknown) (no date) (unknown) (unknown) Plt Count 332 (units unknown) (unknown) (unknown) (no date) (unknown) (unknown) Plt Count 396 (units unknown) (unknown) (unknown) (no date) (unknown) (unknown) Plt Count (units unknown) (unknown) (unknown) (no date) (unknown) (unknown) Potassium 3.5 (units unknown) (unknown) (unknown) (no date) (unknown) (unknown) Potassium 3.6 (units unknown) (unknown) (unknown) (no date) (unknown) (unknown) Potassium (units unknown) (unknown) (unknown) (no date) (unknown) (unknown) Precedex IV 0 mcg/kg/hr (units unknown) (unknown) (unknown) (no date) (unknown) (unknown) Protocol (units unknown) (unknown) (unknown) (no date) (unknown) (unknown) Provider location (State): [place] (units unknown) (unknown) (unknown) (no date) (unknown) (unknown) Provider: Shameka Prince MD (units unknown) (unknown) (unknown) (no date) (unknown) (unknown) Pulse Oximetry 95 95 (units unknown) (unknown) (unknown) (no date) (unknown) (unknown) Pulse Oximetry 95 96 (units unknown) (unknown) (unknown) (no date) (unknown) (unknown) Pulse Oximetry 95 (units unknown) (unknown) (unknown) (no date) (unknown) (unknown) Pulse Oximetry 96 (units unknown) (unknown) (unknown) (no date) (unknown) (unknown) Pulse Oximetry 97 96 (units unknown) (unknown) (unknown) (no date) (unknown) (unknown) Pulse Oximetry 97 (units unknown) (unknown) (unknown) (no date) (unknown) (unknown) Pulse Oximetry 99 99 (units unknown) (unknown) (unknown) (no date) (unknown) (unknown) Pulse Rate 69 72 (units unknown) (unknown) (unknown) (no date) (unknown) (unknown) Pulse Rate 71 (units unknown) (unknown) (unknown) (no date) (unknown) (unknown) Pulse Rate 72 (units unknown) (unknown) (unknown) (no date) (unknown) (unknown) Pulse Rate 75 69 (units unknown) (unknown) (unknown) (no date) (unknown) (unknown) Pulse Rate 75 75 (units unknown) (unknown) (unknown) (no date) (unknown) (unknown) Pulse Rate 75 78 (units unknown) (unknown) (unknown) (no date) (unknown) (unknown) Pulse Rate 75 (units unknown) (unknown) (unknown) (no date) (unknown) (unknown) Pulse Rate 76 71 (units unknown) (unknown) (unknown) (no date) (unknown) (unknown) Pulse Rate 79 76 (units unknown) (unknown) (unknown) (no date) (unknown) (unknown) Q24H SANDY Administration (units unknown) (unknown) (unknown) (no date) (unknown) (unknown) Q6HR SANDY Administration (units unknown) (unknown) (unknown) (no date) (unknown) (unknown) Q8HR PRN Administration (units unknown) (unknown) (unknown) (no date) (unknown) (unknown) Quality TeleICU (units unknown) (unknown) (unknown) (no date) (unknown) (unknown) RBC 3.98 L (units unknown) (unknown) (unknown) (no date) (unknown) (unknown) RBC 4.61 (units unknown) (unknown) (unknown) (no date) (unknown) (unknown) RBC (units unknown) (unknown) (unknown) (no date) (unknown) (unknown) RDW 19.5 H (units unknown) (unknown) (unknown) (no date) (unknown) (unknown) RDW 19.7 H (units unknown) (unknown) (unknown) (no date) (unknown) (unknown) RDW (units unknown) (unknown) (unknown) (no date) (unknown) (unknown) Respiratory Rate 14 16 (units unknown) (unknown) (unknown) (no date) (unknown) (unknown) Respiratory Rate 16 16 (units unknown) (unknown) (unknown) (no date) (unknown) (unknown) Respiratory Rate 18 19 (units unknown) (unknown) (unknown) (no date) (unknown) (unknown) Respiratory Rate 18 (units unknown) (unknown) (unknown) (no date) (unknown) (unknown) Respiratory Rate 19 (units unknown) (unknown) (unknown) (no date) (unknown) (unknown) Respiratory Rate 21 20 (units unknown) (unknown) (unknown) (no date) (unknown) (unknown) Respiratory Rate 27 H (units unknown) (unknown) (unknown) (no date) (unknown) (unknown) Respiratory Rate 34 H 23 (units unknown) (unknown) (unknown) (no date) (unknown) (unknown) Respiratory Rate 37 H 16 (units unknown) (unknown) (unknown) (no date) (unknown) (unknown) Respiratory Rate 37 H (units unknown) (unknown) (unknown) (no date) (unknown) (unknown) SARS-CoV-2 (PCR) Negative (units unknown) (unknown) (unknown) (no date) (unknown) (unknown) SARS-CoV-2 (PCR) (units unknown) (unknown) (unknown) (no date) (unknown) (unknown) She remains mildly hypotensive and urine is estefany in color, she is being treated (units unknown) (unknown) (unknown) (no date) (unknown) (unknown) Signed By: (units unknown) (unknown) (unknown) (no date) (unknown) (unknown) Sodium 145 (units unknown) (unknown) (unknown) (no date) (unknown) (unknown) Sodium 148 H D (units unknown) (unknown) (unknown) (no date) (unknown) (unknown) Sodium Chloride IV 08/12/22 06:59 200 mls/hr (units unknown) (unknown) (unknown) (no date) (unknown) (unknown) Sodium (units unknown) (unknown) (unknown) (no date) (unknown) (unknown) Subjective (units unknown) (unknown) (unknown) (no date) (unknown) (unknown) TITRATE SANDY 0 mls/hr (units unknown) (unknown) (unknown) (no date) (unknown) (unknown) Teleintensivist Progress Note (units unknown) (unknown) (unknown) (no date) (unknown) (unknown) Temperature 98.6 F (units unknown) (unknown) (unknown) (no date) (unknown) (unknown) Temperature (units unknown) (unknown) (unknown) (no date) (unknown) (unknown) Titration (units unknown) (unknown) (unknown) (no date) (unknown) (unknown) Total Bilirubin 0.3 (units unknown) (unknown) (unknown) (no date) (unknown) (unknown) Total Bilirubin 0.4 (units unknown) (unknown) (unknown) (no date) (unknown) (unknown) Total Bilirubin (units unknown) (unknown) (unknown) (no date) (unknown) (unknown) Total Protein 6.0 L (units unknown) (unknown) (unknown) (no date) (unknown) (unknown) Total Protein 7.7 (units unknown) (unknown) (unknown) (no date) (unknown) (unknown) Total Protein (units unknown) (unknown) (unknown) (no date) (unknown) (unknown) Trade Name Frandyq PRN Reason Stop Dose Admin (units unknown) (unknown) (unknown) (no date) (unknown) (unknown) U Benzodiazepines Scrn Positive H (units unknown) (unknown) (unknown) (no date) (unknown) (unknown) U Benzodiazepines Scrn (units unknown) (unknown) (unknown) (no date) (unknown) (unknown) U Marijuana (THC) Screen Negative (units unknown) (unknown) (unknown) (no date) (unknown) (unknown) U Marijuana (THC) Screen (units unknown) (unknown) (unknown) (no date) (unknown) (unknown) U Methamphetamines Scrn Negative (units unknown) (unknown) (unknown) (no date) (unknown) (unknown) U Methamphetamines Scrn (units unknown) (unknown) (unknown) (no date) (unknown) (unknown) U Opiates 300ng/mL cut Negative (units unknown) (unknown) (unknown) (no date) (unknown) (unknown) U Opiates 300ng/mL cut (units unknown) (unknown) (unknown) (no date) (unknown) (unknown) U Tricyclic Antidepress Positive H (units unknown) (unknown) (unknown) (no date) (unknown) (unknown) U Tricyclic Antidepress (units unknown) (unknown) (unknown) (no date) (unknown) (unknown) Unconjugated Bilirubin 0.0 (units unknown) (unknown) (unknown) (no date) (unknown) (unknown) Unconjugated Bilirubin (units unknown) (unknown) (unknown) (no date) (unknown) (unknown) Ur Amphetamines Screen Negative (units unknown) (unknown) (unknown) (no date) (unknown) (unknown) Ur Amphetamines Screen (units unknown) (unknown) (unknown) (no date) (unknown) (unknown) Ur Barbiturates Screen Positive H (units unknown) (unknown) (unknown) (no date) (unknown) (unknown) Ur Barbiturates Screen (units unknown) (unknown) (unknown) (no date) (unknown) (unknown) Ur Culture Indicated ? Specimen cultured (units unknown) (unknown) (unknown) (no date) (unknown) (unknown) Ur Culture Indicated? (units unknown) (unknown) (unknown) (no date) (unknown) (unknown) Ur Leukocyte [place] e 1+ H (units unknown) (unknown) (unknown) (no date) (unknown) (unknown) Ur Leukocyte Esterase (units unknown) (unknown) (unknown) (no date) (unknown) (unknown) Ur MDMA Scrn (Ecstasy) Negative (units unknown) (unknown) (unknown) (no date) (unknown) (unknown) Ur MDMA Scrn (Ecstasy) (units unknown) (unknown) (unknown) (no date) (unknown) (unknown) Ur Oxycodone Screen Negative (units unknown) (unknown) (unknown) (no date) (unknown) (unknown) Ur Oxycodone Screen (units unknown) (unknown) (unknown) (no date) (unknown) (unknown) Ur Phencyclidine Scr n Negative (units unknown) (unknown) (unknown) (no date) (unknown) (unknown) Ur Phencyclidine Scrn (units unknown) (unknown) (unknown) (no date) (unknown) (unknown) Ur Specific [place] 1.015 (units unknown) (unknown) (unknown) (no date) (unknown) (unknown) Ur Specific [place] (units unknown) (unknown) (unknown) (no date) (unknown) (unknown) Urine Appearance Clear (units unknown) (unknown) (unknown) (no date) (unknown) (unknown) Urine Appearance (units unknown) (unknown) (unknown) (no date) (unknown) (unknown) Urine Bacteria Many (>30) H (units unknown) (unknown) (unknown) (no date) (unknown) (unknown) Urine Bacteria (units unknown) (unknown) (unknown) (no date) (unknown) (unknown) Urine Bilirubin Negative (units unknown) (unknown) (unknown) (no date) (unknown) (unknown) Urine Bilirubin (units unknown) (unknown) (unknown) (no date) (unknown) (unknown) Urine Cocaine Screen Negative (units unknown) (unknown) (unknown) (no date) (unknown) (unknown) Urine Cocaine Screen (units unknown) (unknown) (unknown) (no date) (unknown) (unknown) Urine Color Yellow (units unknown) (unknown) (unknown) (no date) (unknown) (unknown) Urine Color (units unknown) (unknown) (unknown) (no date) (unknown) (unknown) Urine Glucose (UA) Negative (units unknown) (unknown) (unknown) (no date) (unknown) (unknown) Urine Glucose (UA) (units unknown) (unknown) (unknown) (no date) (unknown) (unknown) Urine Ketones Negative (units unknown) (unknown) (unknown) (no date) (unknown) (unknown) Urine Ketones (units unknown) (unknown) (unknown) (no date) (unknown) (unknown) Urine Methadone Screen Negative (units unknown) (unknown) (unknown) (no date) (unknown) (unknown) Urine Methadone Screen (units unknown) (unknown) (unknown) (no date) (unknown) (unknown) Urine Nitrate Positive H (units unknown) (unknown) (unknown) (no date) (unknown) (unknown) Urine Nitrate (units unknown) (unknown) (unknown) (no date) (unknown) (unknown) Urine Occult Blood Negative (units unknown) (unknown) (unknown) (no date) (unknown) (unknown) Urine Occult Blood (units unknown) (unknown) (unknown) (no date) (unknown) (unknown) Urine Test Negative (units unknown) (unknown) (unknown) (no date) (unknown) (unknown) Urine Test (units unknown) (unknown) (unknown) (no date) (unknown) (unknown) Urine Protein Negative (units unknown) (unknown) (unknown) (no date) (unknown) (unknown) Urine Protein (units unknown) (unknown) (unknown) (no date) (unknown) (unknown) Urine RBC None seen (units unknown) (unknown) (unknown) (no date) (unknown) (unknown) Urine RBC (units unknown) (unknown) (unknown) (no date) (unknown) (unknown) Urine Urobilinogen 0.2 (units unknown) (unknown) (unknown) (no date) (unknown) (unknown) Urine Urobilinogen (units unknown) (unknown) (unknown) (no date) (unknown) (unknown) Urine WBC 10-30/hpf H (units unknown) (unknown) (unknown) (no date) (unknown) (unknown) Urine WBC (units unknown) (unknown) (unknown) (no date) (unknown) (unknown) Urine pH 6.0 (units unknown) (unknown) (unknown) (no date) (unknown) (unknown) Urine pH (units unknown) (unknown) (unknown) (no date) (unknown) (unknown) VTE (units unknown) (unknown) (unknown) (no date) (unknown) (unknown) Visit Medications (administered) (units unknown) (unknown) (unknown) (no date) (unknown) (unknown) Vital Signs (units unknown) (unknown) (unknown) (no date) (unknown) (unknown) WBC 5.1 (units unknown) (unknown) (unknown) (no date) (unknown) (unknown) WBC 5.2 (units unknown) (unknown) (unknown) (no date) (unknown) (unknown) WBC (units unknown) (unknown) (unknown) (no date) (unknown) (unknown) [Embedded Image Not Available] (units unknown) (unknown) (unknown) (no date) (unknown) (unknown) [Rx Confirmed 08/01/22] (units unknown) (unknown) (unknown) (no date) (unknown) (unknown) chlordiazepoxide HCl 25 mg capsule See Rx Instructions .Route .COMPLEX #30 caps (units unknown) (unknown) (unknown) (no date) (unknown) (unknown) communication: Cam[place] a activated (units unknown) (unknown) (unknown) (no date) (unknown) (unknown) dexmedeTOMIDine in 0.9 % NaCL 400 mcg in 100 mls @ 2.699 mls/hr 08/08/22 22:48 (units unknown) (unknown) (unknown) (no date) (unknown) (unknown) disulfiram 250 mg tablet 250 mg PO DAILY #30 tabs 08/03/22 [Rx] (units unknown) (unknown) (unknown) (no date) (unknown) (unknown) fluoxetine 10 mg capsule 10 mg PO DAILY 07/13/22 [History Confirmed 08/01/22] (units unknown) (unknown) (unknown) (no date) (unknown) (unknown) for UTI- Initially recieved 1 L LR bolus and BP improved. Ordered another 1 L (units unknown) (unknown) (unknown) (no date) (unknown) (unknown) hydroxyzine HCl 50 m g tablet 50 mg PO DAILY 07/13/22 [History Confirmed (units unknown) (unknown) (unknown) (no date) (unknown) (unknown) multivitamin with folic acid 400 mcg tablet (Tab-A-Kael) 1 tab PO DAILY #30 tabs (units unknown) (unknown) (unknown) (no date) (unknown) (unknown) pantoprazole 40 mg tablet,delayed release 40 mg PO 0700 #30 tabs 07/14/22 [Rx (units unknown) (unknown) (unknown) (no date) (unknown) (unknown) quetiapine 300 mg tablet 300 mg PO DAILY 07/13/22 [History Confirmed 08/01/22] (units unknown) (unknown) (unknown) (no date) (unknown) (unknown) thiamine mononitrate (vit B1) 100 mg tablet 100 mg PO DAILY #30 tabs 07/14/22 (units unknown) (unknown) (unknown) (no date) (unknown) (unknown) was able to take her PO librium (units unknown) (unknown) Result panel 2298 (unknown) (no date) (unknown) (unknown) (no value) (units unknown) (unknown) (unknown) (no date) (unknown) (unknown) (past 8 hours): (units unknown) (unknown) (unknown) (no date) (unknown) (unknown) -SW consult (units unknown) (unknown) (unknown) (no date) (unknown) (unknown) -continue PPI (units unknown) (unknown) (unknown) (no date) (unknown) (unknown) -continue ciwa protocol, with ativan, start librium 50mg q6, ordered precedex (units unknown) (unknown) (unknown) (no date) (unknown) (unknown) -continue prozac (units unknown) (unknown) (unknown) (no date) (unknown) (unknown) -continue to trend (units unknown) (unknown) (unknown) (no date) (unknown) (unknown) -each time she has refused rehab (units unknown) (unknown) (unknown) (no date) (unknown) (unknown) -follow up urine cultures (units unknown) (unknown) (unknown) (no date) (unknown) (unknown) -likely secondary to inadequate PO intake due to alcoholism (units unknown) (unknown) (unknown) (no date) (unknown) (unknown) -multiple admissions and hospital visits for alcohol withdrawal within the last (units unknown) (unknown) (unknown) (no date) (unknown) (unknown) -ordered for high dose thiamine for prevention/treatment of wernicke's (units unknown) (unknown) (unknown) (no date) (unknown) (unknown) -per ED she is requesting detox after drinking heavily after discharge (units unknown) (unknown) (unknown) (no date) (unknown) (unknown) -per ED she was hallucinating and agitated on arrival, received phenobarbital (units unknown) (unknown) (unknown) (no date) (unknown) (unknown) -she was just discharged 5 days ago, refusing rehab (units unknown) (unknown) (unknown) (no date) (unknown) (unknown) -suspect secondary t o alcohol withdrawal and phenobarbital and treat as above (units unknown) (unknown) (unknown) (no date) (unknown) (unknown) -trend daily (units unknown) (unknown) (unknown) (no date) (unknown) (unknown) -unable to discuss with patient on admission as she is sedated (units unknown) (unknown) (unknown) (no date) (unknown) (unknown) [phone] (units unknown) (unknown) (unknown) (no date) (unknown) (unknown) 01:00 08/09/22 (units unknown) (unknown) (unknown) (no date) (unknown) (unknown) 01:06 08/09/22 (units unknown) (unknown) (unknown) (no date) (unknown) (unknown) 01:06 (units unknown) (unknown) (unknown) (no date) (unknown) (unknown) 01:29 08/09/22 (units unknown) (unknown) (unknown) (no date) (unknown) (unknown) 01: (units unknown) (unknown) (unknown) (no date) (unknown) (unknown) 02:00 08/09/22 (units unknown) (unknown) (unknown) (no date) (unknown) (unknown) 08/08/22 08/08/22 08/08/22 (units unknown) (unknown) (unknown) (no date) (unknown) (unknown) 08/08/22 08/08/22 08/09/22 (units unknown) (unknown) (unknown) (no date) (unknown) (unknown) 08/09/22 08/09/22 08/09/22 (units unknown) (unknown) (unknown) (no date) (unknown) (unknown) 08/09/22 08/09/22 (units unknown) (unknown) (unknown) (no date) (unknown) (unknown) 08/09/22 04:16 (units unknown) (unknown) (unknown) (no date) (unknown) (unknown) 08/09/22 (units unknown) (unknown) (unknown) (no date) (unknown) (unknown) 03:00 08/09/22 (units unknown) (unknown) (unknown) (no date) (unknown) (unknown) 03:00 (units unknown) (unknown) (unknown) (no date) (unknown) (unknown) 03:02 08/09/22 (units unknown) (unknown) (unknown) (no date) (unknown) (unknown) 03:02 (units unknown) (unknown) (unknown) (no date) (unknown) (unknown) 04:00 08/09/22 (units unknown) (unknown) (unknown) (no date) (unknown) (unknown) 04:16 04:16 04:30 (units unknown) (unknown) (unknown) (no date) (unknown) (unknown) 04:20 08/09/22 (units unknown) (unknown) (unknown) (no date) (unknown) (unknown) 04:20 (units unknown) (unknown) (unknown) (no date) (unknown) (unknown) 04:30 04:30 (units unknown) (unknown) (unknown) (no date) (unknown) (unknown) 05:00 08/09/22 (units unknown) (unknown) (unknown) (no date) (unknown) (unknown) 05:00 (units unknown) (unknown) (unknown) (no date) (unknown) (unknown) 05:02 08/09/22 (units unknown) (unknown) (unknown) (no date) (unknown) (unknown) 05:20 08/09/22 (units unknown) (unknown) (unknown) (no date) (unknown) (unknown) 05:20 (units unknown) (unknown) (unknown) (no date) (unknown) (unknown) 05:34 08/09/22 (units unknown) (unknown) (unknown) (no date) (unknown) (unknown) 05:34 (units unknown) (unknown) (unknown) (no date) (unknown) (unknown) 06:00 08/09/22 (units unknown) (unknown) (unknown) (no date) (unknown) (unknown) 06:24 08/09/22 (units unknown) (unknown) (unknown) (no date) (unknown) (unknown) 06:24 (units unknown) (unknown) (unknown) (no date) (unknown) (unknown) 07:00 08/09/22 (units unknown) (unknown) (unknown) (no date) (unknown) (unknown) 07:00 (units unknown) (unknown) (unknown) (no date) (unknown) (unknown) 1. Acute alcohol withdrawal with DTs (units unknown) (unknown) (unknown) (no date) (unknown) (unknown) 2. Acute encephalopathy (units unknown) (unknown) (unknown) (no date) (unknown) (unknown) 21:00 21:00 21:00 (units unknown) (unknown) (unknown) (no date) (unknown) (unknown) 21:00 22:30 04:16 (units unknown) (unknown) (unknown) (no date) (unknown) (unknown) 3. Hypernatremia (units unknown) (unknown) (unknown) (no date) (unknown) (unknown) 4. Depression and anxiety (units unknown) (unknown) (unknown) (no date) (unknown) (unknown) 5. Anemia, chronic (units unknown) (unknown) (unknown) (no date) (unknown) (unknown) 6. GERD (units unknown) (unknown) (unknown) (no date) (unknown) (unknown) ABD: soft, nontender , nondistended, no organomegaly (units unknown) (unknown) (unknown) (no date) (unknown) (unknown) ALT 51 H (units unknown) (unknown) (unknown) (no date) (unknown) (unknown) ALT 64 H (units unknown) (unknown) (unknown) (no date) (unknown) (unknown) ALT (units unknown) (unknown) (unknown) (no date) (unknown) (unknown) AST 288 H (units unknown) (unknown) (unknown) (no date) (unknown) (unknown) AST 424 H (units unknown) (unknown) (unknown) (no date) (unknown) (unknown) AST (units unknown) (unknown) (unknown) (no date) (unknown) (unknown) Age/Sex: 31 / F (units unknown) (unknown) (unknown) (no date) (unknown) (unknown) Albumin 3.6 (units unknown) (unknown) (unknown) (no date) (unknown) (unknown) Albumin 4.4 (units unknown) (unknown) (unknown) (no date) (unknown) (unknown) Albumin (units unknown) (unknown) (unknown) (no date) (unknown) (unknown) Albumin/Globulin Ratio 1.3 (units unknown) (unknown) (unknown) (no date) (unknown) (unknown) Albumin/Globulin Ratio 1.5 (units unknown) (unknown) (unknown) (no date) (unknown) (unknown) Albumin/Globulin Ratio (units unknown) (unknown) (unknown) (no date) (unknown) (unknown) Alcohol withdrawal delirium, acute, hyperactive (units unknown) (unknown) (unknown) (no date) (unknown) (unknown) Alcoholism (units unknown) (unknown) (unknown) (no date) (unknown) (unknown) Alkaline Phosphatase 59 (units unknown) (unknown) (unknown) (no date) (unknown) (unknown) Alkaline Phosphatase 71 (units unknown) (unknown) (unknown) (no date) (unknown) (unknown) Alkaline Phosphatase (units unknown) (unknown) (unknown) (no date) (unknown) (unknown) Anemia (-2018) (units unknown) (unknown) (unknown) (no date) (unknown) (unknown) Assessment + Plan narrative: (units unknown) (unknown) (unknown) (no date) (unknown) (unknown) Assessment + Plan (units unknown) (unknown) (unknown) (no date) (unknown) (unknown) BUN 7 (units unknown) (unknown) (unknown) (no date) (unknown) (unknown) BUN 8 (units unknown) (unknown) (unknown) (no date) (unknown) (unknown) BUN (units unknown) (unknown) (unknown) (no date) (unknown) (unknown) BUN/Creatinine Ratio 8.9 (units unknown) (unknown) (unknown) (no date) (unknown) (unknown) BUN/Creatinine Ratio 9.2 (units unknown) (unknown) (unknown) (no date) (unknown) (unknown) BUN/Creatinine Ratio (units unknown) (unknown) (unknown) (no date) (unknown) (unknown) Baso # (Auto) 100 (units unknown) (unknown) (unknown) (no date) (unknown) (unknown) Baso # (Auto) (units unknown) (unknown) (unknown) (no date) (unknown) (unknown) Baso % (Auto) 1.9 (units unknown) (unknown) (unknown) (no date) (unknown) (unknown) Baso % (Auto) 2.5 H (units unknown) (unknown) (unknown) (no date) (unknown) (unknown) Baso % (Auto) (units unknown) (unknown) (unknown) (no date) (unknown) (unknown) Blood Pressure 73/40 L 75/39 L (units unknown) (unknown) (unknown) (no date) (unknown) (unknown) Blood Pressure 74/40 L (units unknown) (unknown) (unknown) (no date) (unknown) (unknown) Blood Pressure 77/42 L 80/45 L (units unknown) (unknown) (unknown) (no date) (unknown) (unknown) Blood Pressure 77/47 L (units unknown) (unknown) (unknown) (no date) (unknown) (unknown) Blood Pressure 78/43 L (units unknown) (unknown) (unknown) (no date) (unknown) (unknown) Blood Pressure 78/48 L (units unknown) (unknown) (unknown) (no date) (unknown) (unknown) Blood Pressure 80/44 L 79/43 L (units unknown) (unknown) (unknown) (no date) (unknown) (unknown) Blood Pressure 82/44 L 71/42 L (units unknown) (unknown) (unknown) (no date) (unknown) (unknown) Blood Pressure 86/53 L 83/50 L (units unknown) (unknown) (unknown) (no date) (unknown) (unknown) CODE: Full (units unknown) (unknown) (unknown) (no date) (unknown) (unknown) CV: regular rate and rhythm, no murmurs (units unknown) (unknown) (unknown) (no date) (unknown) (unknown) Calcium 7.7 L (units unknown) (unknown) (unknown) (no date) (unknown) (unknown) Calcium 8.4 (units unknown) (unknown) (unknown) (no date) (unknown) (unknown) Calcium (units unknown) (unknown) (unknown) (no date) (unknown) (unknown) Carbon Dioxide 30 (units unknown) (unknown) (unknown) (no date) (unknown) (unknown) Carbon Dioxide 33 H (units unknown) (unknown) (unknown) (no date) (unknown) (unknown) Carbon Dioxide (units unknown) (unknown) (unknown) (no date) (unknown) (unknown) Chloride 104 (units unknown) (unknown) (unknown) (no date) (unknown) (unknown) Chloride 107 (units unknown) (unknown) (unknown) (no date) (unknown) (unknown) Chloride (units unknown) (unknown) (unknown) (no date) (unknown) (unknown) Conjugated Bilirubin 0.0 (units unknown) (unknown) (unknown) (no date) (unknown) (unknown) Conjugated Bilirubin (units unknown) (unknown) (unknown) (no date) (unknown) (unknown) Creatinine 0.76 (units unknown) (unknown) (unknown) (no date) (unknown) (unknown) Creatinine 0.90 (units unknown) (unknown) (unknown) (no date) (unknown) (unknown) Creatinine (units unknown) (unknown) (unknown) (no date) (unknown) (unknown) : 1990 Acct:[id number] (units unknown) (unknown) (unknown) (no date) (unknown) (unknown) Date of Service: 08/08/22 (units unknown) (unknown) (unknown) (no date) (unknown) (unknown) Deep Vein Thrombosis/Pulmonary Embolism Present on Admission: No (units unknown) (unknown) (unknown) (no date) (unknown) (unknown) EXT: warm and well perfused with no edema (units unknown) (unknown) (unknown) (no date) (unknown) (unknown) Eos # (Auto) 0 (units unknown) (unknown) (unknown) (no date) (unknown) (unknown) Eos # (Auto) (units unknown) (unknown) (unknown) (no date) (unknown) (unknown) Eos % (Auto) 0.7 L (units unknown) (unknown) (unknown) (no date) (unknown) (unknown) Eos % (Auto) 0.8 L (units unknown) (unknown) (unknown) (no date) (unknown) (unknown) Eos % (Auto) (units unknown) (unknown) (unknown) (no date) (unknown) (unknown) Estimated GFR > 60 (units unknown) (unknown) (unknown) (no date) (unknown) (unknown) Estimated GFR (units unknown) (unknown) (unknown) (no date) (unknown) (unknown) Ethyl Alcohol 393 H (units unknown) (unknown) (unknown) (no date) (unknown) (unknown) Ethyl Alcohol (units unknown) (unknown) (unknown) (no date) (unknown) (unknown) Exam Narrative: (units unknown) (unknown) (unknown) (no date) (unknown) (unknown) Exam (units unknown) (unknown) (unknown) (no date) (unknown) (unknown) Family History (units unknown) (unknown) (unknown) (no date) (unknown) (unknown) Family/Other Alcoholism (units unknown) (unknown) (unknown) (no date) (unknown) (unknown) Family/Other Diabete s mellitus (units unknown) (unknown) (unknown) (no date) (unknown) (unknown) Father Alcoholism (units unknown) (unknown) (unknown) (no date) (unknown) (unknown) GEN: sedated, sleeping (units unknown) (unknown) (unknown) (no date) (unknown) (unknown) Globulin 2.4 (units unknown) (unknown) (unknown) (no date) (unknown) (unknown) Globulin 3.3 (units unknown) (unknown) (unknown) (no date) (unknown) (unknown) Globulin (units unknown) (unknown) (unknown) (no date) (unknown) (unknown) Glucose 84 (units unknown) (unknown) (unknown) (no date) (unknown) (unknown) Glucose 92 (units unknown) (unknown) (unknown) (no date) (unknown) (unknown) Glucose (units unknown) (unknown) (unknown) (no date) (unknown) (unknown) Grandfather Smoker (units unknown) (unknown) (unknown) (no date) (unknown) (unknown) Grandfather Unknown whether patient has any health problems (units unknown) (unknown) (unknown) (no date) (unknown) (unknown) Grandmother Diabetes mellitus (units unknown) (unknown) (unknown) (no date) (unknown) (unknown) Grandmother Hypoglycemia (units unknown) (unknown) (unknown) (no date) (unknown) (unknown) H/O dilation and curettage (-12/14/16) (units unknown) (unknown) (unknown) (no date) (unknown) (unknown) H/O wisdom tooth extraction () (units unknown) (unknown) (unknown) (no date) (unknown) (unknown) HEENT: moist mucous membranes, PERRL (units unknown) (unknown) (unknown) (no date) (unknown) (unknown) Hct 31.4 L (units unknown) (unknown) (unknown) (no date) (unknown) (unknown) Hct 37.0 (units unknown) (unknown) (unknown) (no date) (unknown) (unknown) Hct (units unknown) (unknown) (unknown) (no date) (unknown) (unknown) Hgb 10.1 L (units unknown) (unknown) (unknown) (no date) (unknown) (unknown) Hgb 11.9 L (units unknown) (unknown) (unknown) (no date) (unknown) (unknown) Hgb (units unknown) (unknown) (unknown) (no date) (unknown) (unknown) Insomnia (units unknown) (unknown) (unknown) (no date) (unknown) (unknown) [address] [address] (units unknown) (unknown) (unknown) (no date) (unknown) (unknown) Laboratory Results - last 24 hr (units unknown) (unknown) (unknown) (no date) (unknown) (unknown) Labs (units unknown) (unknown) (unknown) (no date) (unknown) (unknown) Labs: (units unknown) (unknown) (unknown) (no date) (unknown) (unknown) Lipase 408 H (units unknown) (unknown) (unknown) (no date) (unknown) (unknown) Lipase (units unknown) (unknown) (unknown) (no date) (unknown) (unknown) Lymph # (Auto) 2600 (units unknown) (unknown) (unknown) (no date) (unknown) (unknown) Lymph # (Auto) 2800 (units unknown) (unknown) (unknown) (no date) (unknown) (unknown) Lymph # (Auto) (units unknown) (unknown) (unknown) (no date) (unknown) (unknown) Lymph % (Auto) 51.5 H (units unknown) (unknown) (unknown) (no date) (unknown) (unknown) Lymph % (Auto) 54.2 H (units unknown) (unknown) (unknown) (no date) (unknown) (unknown) Lymph % (Auto) (units unknown) (unknown) (unknown) (no date) (unknown) (unknown) MCH 25.4 L (units unknown) (unknown) (unknown) (no date) (unknown) (unknown) MCH 25.7 L (units unknown) (unknown) (unknown) (no date) (unknown) (unknown) MCH (units unknown) (unknown) (unknown) (no date) (unknown) (unknown) MCHC 32.1 (units unknown) (unknown) (unknown) (no date) (unknown) (unknown) MCHC 32.2 (units unknown) (unknown) (unknown) (no date) (unknown) (unknown) MCHC (units unknown) (unknown) (unknown) (no date) (unknown) (unknown) MCV 79.0 L (units unknown) (unknown) (unknown) (no date) (unknown) (unknown) MCV 80.2 (units unknown) (unknown) (unknown) (no date) (unknown) (unknown) MCV (units unknown) (unknown) (unknown) (no date) (unknown) (unknown) Magnesium 2.2 (units unknown) (unknown) (unknown) (no date) (unknown) (unknown) Magnesium (units unknown) (unknown) (unknown) (no date) (unknown) (unknown) Medical History (units unknown) (unknown) (unknown) (no date) (unknown) (unknown) Menometrorrhagia (units unknown) (unknown) (unknown) (no date) (unknown) (unknown) [place] # (Auto) 300 (units unknown) (unknown) (unknown) (no date) (unknown) (unknown) [place] # (Auto) 400 (units unknown) (unknown) (unknown) (no date) (unknown) (unknown) [place] # (Auto) (units unknown) (unknown) (unknown) (no date) (unknown) (unknown) [place] % (Auto) 6.5 (units unknown) (unknown) (unknown) (no date) (unknown) (unknown) [place] % (Auto) 8.6 (units unknown) (unknown) (unknown) (no date) (unknown) (unknown) [place] % (Auto) (units unknown) (unknown) (unknown) (no date) (unknown) (unknown) Mother Diabetes mellitus (units unknown) (unknown) (unknown) (no date) (unknown) (unknown) NECK: trachea midline, no JVD (units unknown) (unknown) (unknown) (no date) (unknown) (unknown) NEURO: sleepy, sedated, moving all extremities, no focal deficits noted (units unknown) (unknown) (unknown) (no date) (unknown) (unknown) Narrative (units unknown) (unknown) (unknown) (no date) (unknown) (unknown) Neut # (Auto) 1900 (units unknown) (unknown) (unknown) (no date) (unknown) (unknown) Neut # (Auto) (units unknown) (unknown) (unknown) (no date) (unknown) (unknown) Neut % (Auto) 36.6 L (units unknown) (unknown) (unknown) (no date) (unknown) (unknown) Neut % (Auto) 36.7 L (units unknown) (unknown) (unknown) (no date) (unknown) (unknown) Neut % (Auto) (units unknown) (unknown) (unknown) (no date) (unknown) (unknown) Obesity (units unknown) (unknown) (unknown) (no date) (unknown) (unknown) Objective (units unknown) (unknown) (unknown) (no date) (unknown) (unknown) Overweight (units unknown) (unknown) (unknown) (no date) (unknown) (unknown) Oxygen Delivery Method Room Air (units unknown) (unknown) (unknown) (no date) (unknown) (unknown) PFSH (units unknown) (unknown) (unknown) (no date) (unknown) (unknown) PULM: clear bilaterally, no wheezes, rhonchi, rales (units unknown) (unknown) (unknown) (no date) (unknown) (unknown) Patient: Sarah Connors MR#: M (units unknown) (unknown) (unknown) (no date) (unknown) (unknown) Plt Count 332 (units unknown) (unknown) (unknown) (no date) (unknown) (unknown) Plt Count 396 (units unknown) (unknown) (unknown) (no date) (unknown) (unknown) Plt Count (units unknown) (unknown) (unknown) (no date) (unknown) (unknown) Potassium 3.5 (units unknown) (unknown) (unknown) (no date) (unknown) (unknown) Potassium 3.6 (units unknown) (unknown) (unknown) (no date) (unknown) (unknown) Potassium (units unknown) (unknown) (unknown) (no date) (unknown) (unknown) Progress Note (units unknown) (unknown) (unknown) (no date) (unknown) (unknown) Provider: Jabari Sena D.O. (units unknown) (unknown) (unknown) (no date) (unknown) (unknown) Proxy: Rober Dory, spouse (units unknown) (unknown) (unknown) (no date) (unknown) (unknown) Pulse Oximetry 95 95 (units unknown) (unknown) (unknown) (no date) (unknown) (unknown) Pulse Oximetry 95 96 (units unknown) (unknown) (unknown) (no date) (unknown) (unknown) Pulse Oximetry 95 (units unknown) (unknown) (unknown) (no date) (unknown) (unknown) Pulse Oximetry 96 (units unknown) (unknown) (unknown) (no date) (unknown) (unknown) Pulse Oximetry 97 96 (units unknown) (unknown) (unknown) (no date) (unknown) (unknown) Pulse Oximetry 97 (units unknown) (unknown) (unknown) (no date) (unknown) (unknown) Pulse Oximetry 99 99 (units unknown) (unknown) (unknown) (no date) (unknown) (unknown) Pulse Rate 69 72 (units unknown) (unknown) (unknown) (no date) (unknown) (unknown) Pulse Rate 71 (units unknown) (unknown) (unknown) (no date) (unknown) (unknown) Pulse Rate 72 (units unknown) (unknown) (unknown) (no date) (unknown) (unknown) Pulse Rate 75 69 (units unknown) (unknown) (unknown) (no date) (unknown) (unknown) Pulse Rate 75 75 (units unknown) (unknown) (unknown) (no date) (unknown) (unknown) Pulse Rate 75 78 (units unknown) (unknown) (unknown) (no date) (unknown) (unknown) Pulse Rate 75 (units unknown) (unknown) (unknown) (no date) (unknown) (unknown) Pulse Rate 76 71 (units unknown) (unknown) (unknown) (no date) (unknown) (unknown) Pulse Rate 79 76 (units unknown) (unknown) (unknown) (no date) (unknown) (unknown) Quality (units unknown) (unknown) (unknown) (no date) (unknown) (unknown) RBC 3.98 L (units unknown) (unknown) (unknown) (no date) (unknown) (unknown) RBC 4.61 (units unknown) (unknown) (unknown) (no date) (unknown) (unknown) RBC (units unknown) (unknown) (unknown) (no date) (unknown) (unknown) RDW 19.5 H (units unknown) (unknown) (unknown) (no date) (unknown) (unknown) RDW 19.7 H (units unknown) (unknown) (unknown) (no date) (unknown) (unknown) RDW (units unknown) (unknown) (unknown) (no date) (unknown) (unknown) Respiratory Rate 14 16 (units unknown) (unknown) (unknown) (no date) (unknown) (unknown) Respiratory Rate 16 16 (units unknown) (unknown) (unknown) (no date) (unknown) (unknown) Respiratory Rate 18 19 (units unknown) (unknown) (unknown) (no date) (unknown) (unknown) Respiratory Rate 18 (units unknown) (unknown) (unknown) (no date) (unknown) (unknown) Respiratory Rate 19 (units unknown) (unknown) (unknown) (no date) (unknown) (unknown) Respiratory Rate 21 20 (units unknown) (unknown) (unknown) (no date) (unknown) (unknown) Respiratory Rate 27 H (units unknown) (unknown) (unknown) (no date) (unknown) (unknown) Respiratory Rate 34 H 23 (units unknown) (unknown) (unknown) (no date) (unknown) (unknown) Respiratory Rate 37 H 16 (units unknown) (unknown) (unknown) (no date) (unknown) (unknown) Respiratory Rate 37 H (units unknown) (unknown) (unknown) (no date) (unknown) (unknown) S/P myringotomy with insertion of tube (units unknown) (unknown) (unknown) (no date) (unknown) (unknown) SARS-CoV-2 (PCR) Negative (units unknown) (unknown) (unknown) (no date) (unknown) (unknown) SARS-CoV-2 (PCR) (units unknown) (unknown) (unknown) (no date) (unknown) (unknown) (spontaneous vaginal delivery) (-09/05/18) (units unknown) (unknown) (unknown) (no date) (unknown) (unknown) Signed By: (units unknown) (unknown) (unknown) (no date) (unknown) (unknown) Smoker (units unknown) (unknown) (unknown) (no date) (unknown) (unknown) Smoking Status: Former smoker (units unknown) (unknown) (unknown) (no date) (unknown) (unknown) Social History (units unknown) (unknown) (unknown) (no date) (unknown) (unknown) Sodium 145 (units unknown) (unknown) (unknown) (no date) (unknown) (unknown) Sodium 148 H D (units unknown) (unknown) (unknown) (no date) (unknown) (unknown) Sodium (units unknown) (unknown) (unknown) (no date) (unknown) (unknown) Surgical History (units unknown) (unknown) (unknown) (no date) (unknown) (unknown) Temperature 98.6 F (units unknown) (unknown) (unknown) (no date) (unknown) (unknown) Temperature (units unknown) (unknown) (unknown) (no date) (unknown) (unknown) Total Bilirubin 0.3 (units unknown) (unknown) (unknown) (no date) (unknown) (unknown) Total Bilirubin 0.4 (units unknown) (unknown) (unknown) (no date) (unknown) (unknown) Total Bilirubin (units unknown) (unknown) (unknown) (no date) (unknown) (unknown) Total Protein 6.0 L (units unknown) (unknown) (unknown) (no date) (unknown) (unknown) Total Protein 7.7 (units unknown) (unknown) (unknown) (no date) (unknown) (unknown) Total Protein (units unknown) (unknown) (unknown) (no date) (unknown) (unknown) U Benzodiazepines Scrn Positive H (units unknown) (unknown) (unknown) (no date) (unknown) (unknown) U Benzodiazepines Scrn (units unknown) (unknown) (unknown) (no date) (unknown) (unknown) U Marijuana (THC) Screen Negative (units unknown) (unknown) (unknown) (no date) (unknown) (unknown) U Marijuana (THC) Screen (units unknown) (unknown) (unknown) (no date) (unknown) (unknown) U Methamphetamines Scrn Negative (units unknown) (unknown) (unknown) (no date) (unknown) (unknown) U Methamphetamines Scrn (units unknown) (unknown) (unknown) (no date) (unknown) (unknown) U Opiates 300ng/mL cut Negative (units unknown) (unknown) (unknown) (no date) (unknown) (unknown) U Opiates 300ng/mL cut (units unknown) (unknown) (unknown) (no date) (unknown) (unknown) U Tricyclic Antidepress Positive H (units unknown) (unknown) (unknown) (no date) (unknown) (unknown) U Tricyclic Antidepress (units unknown) (unknown) (unknown) (no date) (unknown) (unknown) Unconjugated Bilirubin 0.0 (units unknown) (unknown) (unknown) (no date) (unknown) (unknown) Unconjugated Bilirubin (units unknown) (unknown) (unknown) (no date) (unknown) (unknown) Ur Amphetamines Screen Negative (units unknown) (unknown) (unknown) (no date) (unknown) (unknown) Ur Amphetamines Screen (units unknown) (unknown) (unknown) (no date) (unknown) (unknown) Ur Barbiturates Screen Positive H (units unknown) (unknown) (unknown) (no date) (unknown) (unknown) Ur Barbiturates Screen (units unknown) (unknown) (unknown) (no date) (unknown) (unknown) Ur Culture Indicated ? Specimen cultured (units unknown) (unknown) (unknown) (no date) (unknown) (unknown) Ur Culture Indicated? (units unknown) (unknown) (unknown) (no date) (unknown) (unknown) Ur Leukocyte Ester[place] e 1+ H (units unknown) (unknown) (unknown) (no date) (unknown) (unknown) Ur Leukocyte Esterase (units unknown) (unknown) (unknown) (no date) (unknown) (unknown) Ur MDMA Scrn (Ecstasy) Negative (units unknown) (unknown) (unknown) (no date) (unknown) (unknown) Ur MDMA Scrn (Ecstasy) (units unknown) (unknown) (unknown) (no date) (unknown) (unknown) Ur Oxycodone Screen Negative (units unknown) (unknown) (unknown) (no date) (unknown) (unknown) Ur Oxycodone Screen (units unknown) (unknown) (unknown) (no date) (unknown) (unknown) Ur Phencyclidine Scr n Negative (units unknown) (unknown) (unknown) (no date) (unknown) (unknown) Ur Phencyclidine Scrn (units unknown) (unknown) (unknown) (no date) (unknown) (unknown) Ur Specific [place] 1.015 (units unknown) (unknown) (unknown) (no date) (unknown) (unknown) Ur Specific [place] (units unknown) (unknown) (unknown) (no date) (unknown) (unknown) Urine Appearance Clear (units unknown) (unknown) (unknown) (no date) (unknown) (unknown) Urine Appearance (units unknown) (unknown) (unknown) (no date) (unknown) (unknown) Urine Bacteria Many (>30) H (units unknown) (unknown) (unknown) (no date) (unknown) (unknown) Urine Bacteria (units unknown) (unknown) (unknown) (no date) (unknown) (unknown) Urine Bilirubin Negative (units unknown) (unknown) (unknown) (no date) (unknown) (unknown) Urine Bilirubin (units unknown) (unknown) (unknown) (no date) (unknown) (unknown) Urine Cocaine Screen Negative (units unknown) (unknown) (unknown) (no date) (unknown) (unknown) Urine Cocaine Screen (units unknown) (unknown) (unknown) (no date) (unknown) (unknown) Urine Color Yellow (units unknown) (unknown) (unknown) (no date) (unknown) (unknown) Urine Color (units unknown) (unknown) (unknown) (no date) (unknown) (unknown) Urine Glucose (UA) Negative (units unknown) (unknown) (unknown) (no date) (unknown) (unknown) Urine Glucose (UA) (units unknown) (unknown) (unknown) (no date) (unknown) (unknown) Urine Ketones Negative (units unknown) (unknown) (unknown) (no date) (unknown) (unknown) Urine Ketones (units unknown) (unknown) (unknown) (no date) (unknown) (unknown) Urine Methadone Screen Negative (units unknown) (unknown) (unknown) (no date) (unknown) (unknown) Urine Methadone Screen (units unknown) (unknown) (unknown) (no date) (unknown) (unknown) Urine Nitrate Positive H (units unknown) (unknown) (unknown) (no date) (unknown) (unknown) Urine Nitrate (units unknown) (unknown) (unknown) (no date) (unknown) (unknown) Urine Occult Blood Negative (units unknown) (unknown) (unknown) (no date) (unknown) (unknown) Urine Occult Blood (units unknown) (unknown) (unknown) (no date) (unknown) (unknown) Urine Test Negative (units unknown) (unknown) (unknown) (no date) (unknown) (unknown) Urine Test (units unknown) (unknown) (unknown) (no date) (unknown) (unknown) Urine Protein Negative (units unknown) (unknown) (unknown) (no date) (unknown) (unknown) Urine Protein (units unknown) (unknown) (unknown) (no date) (unknown) (unknown) Urine RBC None seen (units unknown) (unknown) (unknown) (no date) (unknown) (unknown) Urine RBC (units unknown) (unknown) (unknown) (no date) (unknown) (unknown) Urine Urobilinogen 0.2 (units unknown) (unknown) (unknown) (no date) (unknown) (unknown) Urine Urobilinogen (units unknown) (unknown) (unknown) (no date) (unknown) (unknown) Urine WBC 10-30/hpf H (units unknown) (unknown) (unknown) (no date) (unknown) (unknown) Urine WBC (units unknown) (unknown) (unknown) (no date) (unknown) (unknown) Urine pH 6.0 (units unknown) (unknown) (unknown) (no date) (unknown) (unknown) Urine pH (units unknown) (unknown) (unknown) (no date) (unknown) (unknown) VTE (units unknown) (unknown) (unknown) (no date) (unknown) (unknown) Vital Signs (units unknown) (unknown) (unknown) (no date) (unknown) (unknown) WBC 5.1 (units unknown) (unknown) (unknown) (no date) (unknown) (unknown) WBC 5.2 (units unknown) (unknown) (unknown) (no date) (unknown) (unknown) WBC (units unknown) (unknown) (unknown) (no date) (unknown) (unknown) [Embedded Image Not Available] (units unknown) (unknown) (unknown) (no date) (unknown) (unknown) alcohol intake: current (units unknown) (unknown) (unknown) (no date) (unknown) (unknown) and place in ICU (units unknown) (unknown) (unknown) (no date) (unknown) (unknown) current occupational exposures/hazards: Yes (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 with Pandemic ) (units unknown) (unknown) (unknown) (no date) (unknown) (unknown) education level: college 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[employer] (units unknown) (unknown) (unknown) (no date) (unknown) (unknown) household members: significant other (units unknown) (unknown) (unknown) (no date) (unknown) (unknown) marital status: (units unknown) (unknown) (unknown) (no date) (unknown) (unknown) month (units unknown) (unknown) (unknown) (no date) (unknown) (unknown) number of children: 1 (units unknown) (unknown) (unknown) (no date) (unknown) (unknown) occupational status: employed (units unknown) (unknown) (unknown) (no date) (unknown) (unknown) second hand exposure : No (growing up as a child - not currently) (units unknown) (unknown) (unknown) (no date) (unknown) (unknown) special renee needs: No (units unknown) (unknown) (unknown) (no date) (unknown) (unknown) substance use type: does not use (units unknown) (unknown) Result panel 2299 (unknown) (no date) (unknown) (unknown) (no value) (units unknown) (unknown) (unknown) (no date) (unknown) (unknown) (1) Abnormal urinalysis: (units unknown) (unknown) (unknown) (no date) (unknown) (unknown) (2) Alcohol intoxication: (units unknown) (unknown) (unknown) (no date) (unknown) (unknown) (3) Alcohol withdrawal: (units unknown) (unknown) (unknown) (no date) (unknown) (unknown) (past 8 hours): (units unknown) (unknown) (unknown) (no date) (unknown) (unknown) 0.2 MCG/KG/HR (units unknown) (unknown) (unknown) (no date) (unknown) (unknown) [id number] (units unknown) (unknown) (unknown) (no date) (unknown) (unknown) 01:00 08/09/22 (units unknown) (unknown) (unknown) (no date) (unknown) (unknown) 01:06 08/09/22 (units unknown) (unknown) (unknown) (no date) (unknown) (unknown) 01:06 (units unknown) (unknown) (unknown) (no date) (unknown) (unknown) 01:29 08/09/22 (units unknown) (unknown) (unknown) (no date) (unknown) (unknown) 01:29 (units unknown) (unknown) (unknown) (no date) (unknown) (unknown) 02:00 08/09/22 (units unknown) (unknown) (unknown) (no date) (unknown) (unknown) 07/14/22 [Rx Confirmed 08/01/22] (units unknown) (unknown) (unknown) (no date) (unknown) (unknown) 08/01/22] (units unknown) (unknown) (unknown) (no date) (unknown) (unknown) 08/03/22 [Rx] (units unknown) (unknown) (unknown) (no date) (unknown) (unknown) 08/08/22 08/08/22 08/08/22 (units unknown) (unknown) (unknown) (no date) (unknown) (unknown) 08/08/22 08/08/22 08/09/22 (units unknown) (unknown) (unknown) (no date) (unknown) (unknown) 08/09/22 08/09/22 08/09/22 (units unknown) (unknown) (unknown) (no date) (unknown) (unknown) 08/09/22 08/09/22 (units unknown) (unknown) (unknown) (no date) (unknown) (unknown) 08/09/22 04:16 (units unknown) (unknown) (unknown) (no date) (unknown) (unknown) 08/09/22 05:06 (units unknown) (unknown) (unknown) (no date) (unknown) (unknown) 08/09/22 (units unknown) (unknown) (unknown) (no date) (unknown) (unknown) 03:00 08/09/22 (units unknown) (unknown) (unknown) (no date) (unknown) (unknown) 03:00 (units unknown) (unknown) (unknown) (no date) (unknown) (unknown) 03:02 08/09/22 (units unknown) (unknown) (unknown) (no date) (unknown) (unknown) 03:02 (units unknown) (unknown) (unknown) (no date) (unknown) (unknown) 04:00 08/09/22 (units unknown) (unknown) (unknown) (no date) (unknown) (unknown) 04:16 04:16 04:30 (units unknown) (unknown) (unknown) (no date) (unknown) (unknown) 04:20 08/09/22 (units unknown) (unknown) (unknown) (no date) (unknown) (unknown) 04:20 (units unknown) (unknown) (unknown) (no date) (unknown) (unknown) 04:30 04:30 (units unknown) (unknown) (unknown) (no date) (unknown) (unknown) 05:00 08/09/22 (units unknown) (unknown) (unknown) (no date) (unknown) (unknown) 05:00 (units unknown) (unknown) (unknown) (no date) (unknown) (unknown) 05:02 08/09/22 (units unknown) (unknown) (unknown) (no date) (unknown) (unknown) 05:20 08/09/22 (units unknown) (unknown) (unknown) (no date) (unknown) (unknown) 05:20 (units unknown) (unknown) (unknown) (no date) (unknown) (unknown) 05:34 08/09/22 (units unknown) (unknown) (unknown) (no date) (unknown) (unknown) 05:34 (units unknown) (unknown) (unknown) (no date) (unknown) (unknown) 06:00 08/09/22 (units unknown) (unknown) (unknown) (no date) (unknown) (unknown) 06:24 08/09/22 (units unknown) (unknown) (unknown) (no date) (unknown) (unknown) 06:24 (units unknown) (unknown) (unknown) (no date) (unknown) (unknown) 07:00 08/09/22 (units unknown) (unknown) (unknown) (no date) (unknown) (unknown) 07:00 (units unknown) (unknown) (unknown) (no date) (unknown) (unknown) 07:35 (units unknown) (unknown) (unknown) (no date) (unknown) (unknown) 21:00 21:00 21:00 (units unknown) (unknown) (unknown) (no date) (unknown) (unknown) 21:00 22:30 04:16 (units unknown) (unknown) (unknown) (no date) (unknown) (unknown) ALT 51 H (units unknown) (unknown) (unknown) (no date) (unknown) (unknown) ALT 64 H (units unknown) (unknown) (unknown) (no date) (unknown) (unknown) ALT (units unknown) (unknown) (unknown) (no date) (unknown) (unknown) AST 288 H (units unknown) (unknown) (unknown) (no date) (unknown) (unknown) AST 424 H (units unknown) (unknown) (unknown) (no date) (unknown) (unknown) AST (units unknown) (unknown) (unknown) (no date) (unknown) (unknown) Age/Sex: 31 / F (units unknown) (unknown) (unknown) (no date) (unknown) (unknown) Albumin 3.6 (units unknown) (unknown) (unknown) (no date) (unknown) (unknown) Albumin 4.4 (units unknown) (unknown) (unknown) (no date) (unknown) (unknown) Albumin (units unknown) (unknown) (unknown) (no date) (unknown) (unknown) Albumin/Globulin Ratio 1.3 (units unknown) (unknown) (unknown) (no date) (unknown) (unknown) Albumin/Globulin Ratio 1.5 (units unknown) (unknown) (unknown) (no date) (unknown) (unknown) Albumin/Globulin Ratio (units unknown) (unknown) (unknown) (no date) (unknown) (unknown) Alcohol Withdrawal (units unknown) (unknown) (unknown) (no date) (unknown) (unknown) Alkaline Phosphatase 59 (units unknown) (unknown) (unknown) (no date) (unknown) (unknown) Alkaline Phosphatase 71 (units unknown) (unknown) (unknown) (no date) (unknown) (unknown) Alkaline Phosphatase (units unknown) (unknown) (unknown) (no date) (unknown) (unknown) Assessment + Plan (units unknown) (unknown) (unknown) (no date) (unknown) (unknown) Assessment and plan (units unknown) (unknown) (unknown) (no date) (unknown) (unknown) BUN 7 (units unknown) (unknown) (unknown) (no date) (unknown) (unknown) BUN 8 (units unknown) (unknown) (unknown) (no date) (unknown) (unknown) BUN (units unknown) (unknown) (unknown) (no date) (unknown) (unknown) BUN/Creatinine Ratio 8.9 (units unknown) (unknown) (unknown) (no date) (unknown) (unknown) BUN/Creatinine Ratio 9.2 (units unknown) (unknown) (unknown) (no date) (unknown) (unknown) BUN/Creatinine Ratio (units unknown) (unknown) (unknown) (no date) (unknown) (unknown) Baso # (Auto) 100 (units unknown) (unknown) (unknown) (no date) (unknown) (unknown) Baso # (Auto) (units unknown) (unknown) (unknown) (no date) (unknown) (unknown) Baso % (Auto) 1.9 (units unknown) (unknown) (unknown) (no date) (unknown) (unknown) Baso % (Auto) 2.5 H (units unknown) (unknown) (unknown) (no date) (unknown) (unknown) Baso % (Auto) (units unknown) (unknown) (unknown) (no date) (unknown) (unknown) Blood Pressure 73/40 L 75/39 L (units unknown) (unknown) (unknown) (no date) (unknown) (unknown) Blood Pressure 74/40 L (units unknown) (unknown) (unknown) (no date) (unknown) (unknown) Blood Pressure 77/42 L 80/45 L (units unknown) (unknown) (unknown) (no date) (unknown) (unknown) Blood Pressure 77/47 L (units unknown) (unknown) (unknown) (no date) (unknown) (unknown) Blood Pressure 78/43 L (units unknown) (unknown) (unknown) (no date) (unknown) (unknown) Blood Pressure 78/48 L (units unknown) (unknown) (unknown) (no date) (unknown) (unknown) Blood Pressure 80/44 L 79/43 L (units unknown) (unknown) (unknown) (no date) (unknown) (unknown) Blood Pressure 82/44 L 71/42 L (units unknown) (unknown) (unknown) (no date) (unknown) (unknown) Blood Pressure 86/53 L 83/50 L (units unknown) (unknown) (unknown) (no date) (unknown) (unknown) CIWAPRN PRN Administration (units unknown) (unknown) (unknown) (no date) (unknown) (unknown) Calcium 7.7 L (units unknown) (unknown) (unknown) (no date) (unknown) (unknown) Calcium 8.4 (units unknown) (unknown) (unknown) (no date) (unknown) (unknown) Calcium (units unknown) (unknown) (unknown) (no date) (unknown) (unknown) Carbon Dioxide 30 (units unknown) (unknown) (unknown) (no date) (unknown) (unknown) Carbon Dioxide 33 H (units unknown) (unknown) (unknown) (no date) (unknown) (unknown) Carbon Dioxide (units unknown) (unknown) (unknown) (no date) (unknown) (unknown) Cardio (units unknown) (unknown) (unknown) (no date) (unknown) (unknown) Ceftriaxone Sodium 1,000 mg/ 100 mls @ 200 mls/hr 08/09/22 07:00 08/09/22 (units unknown) (unknown) (unknown) (no date) (unknown) (unknown) Check LA (units unknown) (unknown) (unknown) (no date) (unknown) (unknown) Chlordiazepoxide 25 Mg Capsule PO 50 mg (units unknown) (unknown) (unknown) (no date) (unknown) (unknown) Chlordiazepoxide HCl 50 mg 08/09/22 00:00 08/09/22 06:12 (units unknown) (unknown) (unknown) (no date) (unknown) (unknown) Chloride 104 (units unknown) (unknown) (unknown) (no date) (unknown) (unknown) Chloride 107 (units unknown) (unknown) (unknown) (no date) (unknown) (unknown) Chloride (units unknown) (unknown) (unknown) (no date) (unknown) (unknown) Confirmed 08/01/22] (units unknown) (unknown) (unknown) (no date) (unknown) (unknown) Conjugated Bilirubin 0.0 (units unknown) (unknown) (unknown) (no date) (unknown) (unknown) Conjugated Bilirubin (units unknown) (unknown) (unknown) (no date) (unknown) (unknown) 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 obtained for tele-bioinformatics 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 care: Yes (units unknown) (unknown) (unknown) (no date) (unknown) (unknown) Creatinine 0.76 (units unknown) (unknown) (unknown) (no date) (unknown) (unknown) Creatinine 0.90 (units unknown) (unknown) (unknown) (no date) (unknown) (unknown) Creatinine (units unknown) (unknown) (unknown) (no date) (unknown) (unknown) Culture pending (units unknown) (unknown) (unknown) (no date) (unknown) (unknown) Current Medications (units unknown) (unknown) (unknown) (no date) (unknown) (unknown) : 1990 Acct:[id number] (units unknown) (unknown) (unknown) (no date) (unknown) (unknown) Date of Service: 08/08/22 (units unknown) (unknown) (unknown) (no date) (unknown) (unknown) Deep Vein Thrombosis/Pulmonary Embolism Present on Admission: No (units unknown) (unknown) (unknown) (no date) (unknown) (unknown) ETO (units unknown) (unknown) (unknown) (no date) (unknown) (unknown) Eos # (Auto) 0 (units unknown) (unknown) (unknown) (no date) (unknown) (unknown) Eos # (Auto) (units unknown) (unknown) (unknown) (no date) (unknown) (unknown) Eos % (Auto) 0.7 L (units unknown) (unknown) (unknown) (no date) (unknown) (unknown) Eos % (Auto) 0.8 L (units unknown) (unknown) (unknown) (no date) (unknown) (unknown) Eos % (Auto) (units unknown) (unknown) (unknown) (no date) (unknown) (unknown) Estimated GFR > 60 (units unknown) (unknown) (unknown) (no date) (unknown) (unknown) Estimated GFR (units unknown) (unknown) (unknown) (no date) (unknown) (unknown) Ethyl Alcohol 393 H (units unknown) (unknown) (unknown) (no date) (unknown) (unknown) Ethyl Alcohol (units unknown) (unknown) (unknown) (no date) (unknown) (unknown) Exam Narrative: (units unknown) (unknown) (unknown) (no date) (unknown) (unknown) Exam (units unknown) (unknown) (unknown) (no date) (unknown) (unknown) Generic Name Dose Route Start Last Admin (units unknown) (unknown) (unknown) (no date) (unknown) (unknown) Globulin 2.4 (units unknown) (unknown) (unknown) (no date) (unknown) (unknown) Globulin 3.3 (units unknown) (unknown) (unknown) (no date) (unknown) (unknown) Globulin (units unknown) (unknown) (unknown) (no date) (unknown) (unknown) Glucose 84 (units unknown) (unknown) (unknown) (no date) (unknown) (unknown) Glucose 92 (units unknown) (unknown) (unknown) (no date) (unknown) (unknown) Glucose (units unknown) (unknown) (unknown) (no date) (unknown) (unknown) Hct 31.4 L (units unknown) (unknown) (unknown) (no date) (unknown) (unknown) Hct 37.0 (units unknown) (unknown) (unknown) (no date) (unknown) (unknown) Hct (units unknown) (unknown) (unknown) (no date) (unknown) (unknown) Hgb 10.1 L (units unknown) (unknown) (unknown) (no date) (unknown) (unknown) Hgb 11.9 L (units unknown) (unknown) (unknown) (no date) (unknown) (unknown) Hgb (units unknown) (unknown) (unknown) (no date) (unknown) (unknown) Home Medications (units unknown) (unknown) (unknown) (no date) (unknown) (unknown) IF CAMER[place] ACTIVATED, patient seen via real-time interactive audiovisual (units unknown) (unknown) (unknown) (no date) (unknown) (unknown) Interval history: (units unknown) (unknown) (unknown) (no date) (unknown) (unknown) [address] [address] (units unknown) (unknown) (unknown) (no date) (unknown) (unknown) LR this am after BP 80's/40's (units unknown) (unknown) (unknown) (no date) (unknown) (unknown) Laboratory Results - last 24 hr (units unknown) (unknown) (unknown) (no date) (unknown) (unknown) Labs (units unknown) (unknown) (unknown) (no date) (unknown) (unknown) Labs: (units unknown) (unknown) (unknown) (no date) (unknown) (unknown) Lipase 408 H (units unknown) (unknown) (unknown) (no date) (unknown) (unknown) Lipase (units unknown) (unknown) (unknown) (no date) (unknown) (unknown) Lorazepam 0 mg 08/08/22 22:48 08/08/22 23:00 (units unknown) (unknown) (unknown) (no date) (unknown) (unknown) Lorazepam 2 Mg/Ml In j IV 2 mg (units unknown) (unknown) (unknown) (no date) (unknown) (unknown) Lymph # (Auto) 2600 (units unknown) (unknown) (unknown) (no date) (unknown) (unknown) Lymph # (Auto) 2800 (units unknown) (unknown) (unknown) (no date) (unknown) (unknown) Lymph # (Auto) (units unknown) (unknown) (unknown) (no date) (unknown) (unknown) Lymph % (Auto) 51.5 H (units unknown) (unknown) (unknown) (no date) (unknown) (unknown) Lymph % (Auto) 54.2 H (units unknown) (unknown) (unknown) (no date) (unknown) (unknown) Lymph % (Auto) (units unknown) (unknown) (unknown) (no date) (unknown) (unknown) MAP 65, receiving bolus (units unknown) (unknown) (unknown) (no date) (unknown) (unknown) MCH 25.4 L (units unknown) (unknown) (unknown) (no date) (unknown) (unknown) MCH 25.7 L (units unknown) (unknown) (unknown) (no date) (unknown) (unknown) MCH (units unknown) (unknown) (unknown) (no date) (unknown) (unknown) MCHC 32.1 (units unknown) (unknown) (unknown) (no date) (unknown) (unknown) MCHC 32.2 (units unknown) (unknown) (unknown) (no date) (unknown) (unknown) MCHC (units unknown) (unknown) (unknown) (no date) (unknown) (unknown) MCV 79.0 L (units unknown) (unknown) (unknown) (no date) (unknown) (unknown) MCV 80.2 (units unknown) (unknown) (unknown) (no date) (unknown) (unknown) MCV (units unknown) (unknown) (unknown) (no date) (unknown) (unknown) Magnesium 2.2 (units unknown) (unknown) (unknown) (no date) (unknown) (unknown) Magnesium (units unknown) (unknown) (unknown) (no date) (unknown) (unknown) Medications: (units unknown) (unknown) (unknown) (no date) (unknown) (unknown) [place] # (Auto) 300 (units unknown) (unknown) (unknown) (no date) (unknown) (unknown) [place] # (Auto) 400 (units unknown) (unknown) (unknown) (no date) (unknown) (unknown) [place] # (Auto) (units unknown) (unknown) (unknown) (no date) (unknown) (unknown) [place] % (Auto) 6.5 (units unknown) (unknown) (unknown) (no date) (unknown) (unknown) [place] % (Auto) 8.6 (units unknown) (unknown) (unknown) (no date) (unknown) (unknown) [place] % (Auto) (units unknown) (unknown) (unknown) (no date) (unknown) (unknown) Narrative (units unknown) (unknown) (unknown) (no date) (unknown) (unknown) Nausea And Vomiting (units unknown) (unknown) (unknown) (no date) (unknown) (unknown) Neut # (Auto) 1900 (units unknown) (unknown) (unknown) (no date) (unknown) (unknown) Neut # (Auto) (units unknown) (unknown) (unknown) (no date) (unknown) (unknown) Neut % (Auto) 36.6 L (units unknown) (unknown) (unknown) (no date) (unknown) (unknown) Neut % (Auto) 36.7 L (units unknown) (unknown) (unknown) (no date) (unknown) (unknown) Neut % (Auto) (units unknown) (unknown) (unknown) (no date) (unknown) (unknown) No distress, sleepin g in bed- on room air (units unknown) (unknown) (unknown) (no date) (unknown) (unknown) Objective (units unknown) (unknown) (unknown) (no date) (unknown) (unknown) Ondansetron 4 Mg/2 M l Inj IV 4 mg (units unknown) (unknown) (unknown) (no date) (unknown) (unknown) Ondansetron HCl 4 mg 08/08/22 22:48 08/08/22 23:09 (units unknown) (unknown) (unknown) (no date) (unknown) (unknown) 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: Bedside RN (units unknown) (unknown) (unknown) (no date) (unknown) (unknown) Other: (units unknown) (unknown) (unknown) (no date) (unknown) (unknown) Oxygen Delivery Method Room Air (units unknown) (unknown) (unknown) (no date) (unknown) (unknown) Patient Location: ICU (units unknown) (unknown) (unknown) (no date) (unknown) (unknown) Patient admitted for alcohol withdrawal. Precedex gtt turned off at 5 am- She (units unknown) (unknown) (unknown) (no date) (unknown) (unknown) Patient has been mildly hypotensive, but fluid responsive, Likely dehydration in (units unknown) (unknown) (unknown) (no date) (unknown) (unknown) Patient: Sarah Connors MR#: M (units unknown) (unknown) (unknown) (no date) (unknown) (unknown) Plan: (units unknown) (unknown) (unknown) (no date) (unknown) (unknown) Plt Count 332 (units unknown) (unknown) (unknown) (no date) (unknown) (unknown) Plt Count 396 (units unknown) (unknown) (unknown) (no date) (unknown) (unknown) Plt Count (units unknown) (unknown) (unknown) (no date) (unknown) (unknown) Potassium 3.5 (units unknown) (unknown) (unknown) (no date) (unknown) (unknown) Potassium 3.6 (units unknown) (unknown) (unknown) (no date) (unknown) (unknown) Potassium (units unknown) (unknown) (unknown) (no date) (unknown) (unknown) Precedex IV 0 mcg/kg/hr (units unknown) (unknown) (unknown) (no date) (unknown) (unknown) Protocol (units unknown) (unknown) (unknown) (no date) (unknown) (unknown) Provider location (State): [place] (units unknown) (unknown) (unknown) (no date) (unknown) (unknown) Provider: Shameka Prince MD (units unknown) (unknown) (unknown) (no date) (unknown) (unknown) Pulse Oximetry 95 95 (units unknown) (unknown) (unknown) (no date) (unknown) (unknown) Pulse Oximetry 95 96 (units unknown) (unknown) (unknown) (no date) (unknown) (unknown) Pulse Oximetry 95 (units unknown) (unknown) (unknown) (no date) (unknown) (unknown) Pulse Oximetry 96 (units unknown) (unknown) (unknown) (no date) (unknown) (unknown) Pulse Oximetry 97 96 (units unknown) (unknown) (unknown) (no date) (unknown) (unknown) Pulse Oximetry 97 (units unknown) (unknown) (unknown) (no date) (unknown) (unknown) Pulse Oximetry 99 99 (units unknown) (unknown) (unknown) (no date) (unknown) (unknown) Pulse Rate 69 72 (units unknown) (unknown) (unknown) (no date) (unknown) (unknown) Pulse Rate 71 (units unknown) (unknown) (unknown) (no date) (unknown) (unknown) Pulse Rate 72 (units unknown) (unknown) (unknown) (no date) (unknown) (unknown) Pulse Rate 75 69 (units unknown) (unknown) (unknown) (no date) (unknown) (unknown) Pulse Rate 75 75 (units unknown) (unknown) (unknown) (no date) (unknown) (unknown) Pulse Rate 75 78 (units unknown) (unknown) (unknown) (no date) (unknown) (unknown) Pulse Rate 75 (units unknown) (unknown) (unknown) (no date) (unknown) (unknown) Pulse Rate 76 71 (units unknown) (unknown) (unknown) (no date) (unknown) (unknown) Pulse Rate 79 76 (units unknown) (unknown) (unknown) (no date) (unknown) (unknown) Q24H SANDY Administration (units unknown) (unknown) (unknown) (no date) (unknown) (unknown) Q6HR SANDY Administration (units unknown) (unknown) (unknown) (no date) (unknown) (unknown) Q8HR PRN Administration (units unknown) (unknown) (unknown) (no date) (unknown) (unknown) Quality TeleICU (units unknown) (unknown) (unknown) (no date) (unknown) (unknown) RBC 3.98 L (units unknown) (unknown) (unknown) (no date) (unknown) (unknown) RBC 4.61 (units unknown) (unknown) (unknown) (no date) (unknown) (unknown) RBC (units unknown) (unknown) (unknown) (no date) (unknown) (unknown) RDW 19.5 H (units unknown) (unknown) (unknown) (no date) (unknown) (unknown) RDW 19.7 H (units unknown) (unknown) (unknown) (no date) (unknown) (unknown) RDW (units unknown) (unknown) (unknown) (no date) (unknown) (unknown) Respiratory Rate 14 16 (units unknown) (unknown) (unknown) (no date) (unknown) (unknown) Respiratory Rate 16 16 (units unknown) (unknown) (unknown) (no date) (unknown) (unknown) Respiratory Rate 18 19 (units unknown) (unknown) (unknown) (no date) (unknown) (unknown) Respiratory Rate 18 (units unknown) (unknown) (unknown) (no date) (unknown) (unknown) Respiratory Rate 19 (units unknown) (unknown) (unknown) (no date) (unknown) (unknown) Respiratory Rate 21 20 (units unknown) (unknown) (unknown) (no date) (unknown) (unknown) Respiratory Rate 27 H (units unknown) (unknown) (unknown) (no date) (unknown) (unknown) Respiratory Rate 34 H 23 (units unknown) (unknown) (unknown) (no date) (unknown) (unknown) Respiratory Rate 37 H 16 (units unknown) (unknown) (unknown) (no date) (unknown) (unknown) Respiratory Rate 37 H (units unknown) (unknown) (unknown) (no date) (unknown) (unknown) SARS-CoV-2 (PCR) Negative (units unknown) (unknown) (unknown) (no date) (unknown) (unknown) SARS-CoV-2 (PCR) (units unknown) (unknown) (unknown) (no date) (unknown) (unknown) She remains mildly hypotensive and urine is estefany in color, she is being treated (units unknown) (unknown) (unknown) (no date) (unknown) (unknown) Signed By: (units unknown) (unknown) (unknown) (no date) (unknown) (unknown) Sodium 145 (units unknown) (unknown) (unknown) (no date) (unknown) (unknown) Sodium 148 H D (units unknown) (unknown) (unknown) (no date) (unknown) (unknown) Sodium Chloride IV 04/02/23 06:59 200 mls/hr (units unknown) (unknown) (unknown) (no date) (unknown) (unknown) Sodium (units unknown) (unknown) (unknown) (no date) (unknown) (unknown) Started on ceftriaxone (units unknown) (unknown) (unknown) (no date) (unknown) (unknown) Status: Acute (units unknown) (unknown) (unknown) (no date) (unknown) (unknown) Subjective (units unknown) (unknown) (unknown) (no date) (unknown) (unknown) TITRATE ASNDY 0 mls/hr (units unknown) (unknown) (unknown) (no date) (unknown) (unknown) Teleintensivist Progress Note (units unknown) (unknown) (unknown) (no date) (unknown) (unknown) Temperature 98.6 F (units unknown) (unknown) (unknown) (no date) (unknown) (unknown) Temperature (units unknown) (unknown) (unknown) (no date) (unknown) (unknown) Titration (units unknown) (unknown) (unknown) (no date) (unknown) (unknown) Total Bilirubin 0.3 (units unknown) (unknown) (unknown) (no date) (unknown) (unknown) Total Bilirubin 0.4 (units unknown) (unknown) (unknown) (no date) (unknown) (unknown) Total Bilirubin (units unknown) (unknown) (unknown) (no date) (unknown) (unknown) Total Protein 6.0 L (units unknown) (unknown) (unknown) (no date) (unknown) (unknown) Total Protein 7.7 (units unknown) (unknown) (unknown) (no date) (unknown) (unknown) Total Protein (units unknown) (unknown) (unknown) (no date) (unknown) (unknown) Trade Name Freq PRN Reason Stop Dose Admin (units unknown) (unknown) (unknown) (no date) (unknown) (unknown) U Benzodiazepines Scrn Positive H (units unknown) (unknown) (unknown) (no date) (unknown) (unknown) U Benzodiazepines Scrn (units unknown) (unknown) (unknown) (no date) (unknown) (unknown) U Marijuana (THC) Screen Negative (units unknown) (unknown) (unknown) (no date) (unknown) (unknown) U Marijuana (THC) Screen (units unknown) (unknown) (unknown) (no date) (unknown) (unknown) U Methamphetamines Scrn Negative (units unknown) (unknown) (unknown) (no date) (unknown) (unknown) U Methamphetamines Scrn (units unknown) (unknown) (unknown) (no date) (unknown) (unknown) U Opiates 300ng/mL cut Negative (units unknown) (unknown) (unknown) (no date) (unknown) (unknown) U Opiates 300ng/mL cut (units unknown) (unknown) (unknown) (no date) (unknown) (unknown) U Tricyclic Antidepress Positive H (units unknown) (unknown) (unknown) (no date) (unknown) (unknown) U Tricyclic Antidepress (units unknown) (unknown) (unknown) (no date) (unknown) (unknown) UA +, urine estefany colored c/f UTI (units unknown) (unknown) (unknown) (no date) (unknown) (unknown) Unconjugated Bilirubin 0.0 (units unknown) (unknown) (unknown) (no date) (unknown) (unknown) Unconjugated Bilirubin (units unknown) (unknown) (unknown) (no date) (unknown) (unknown) Ur Amphetamines Screen Negative (units unknown) (unknown) (unknown) (no date) (unknown) (unknown) Ur Amphetamines Screen (units unknown) (unknown) (unknown) (no date) (unknown) (unknown) Ur Barbiturates Screen Positive H (units unknown) (unknown) (unknown) (no date) (unknown) (unknown) Ur Barbiturates Screen (units unknown) (unknown) (unknown) (no date) (unknown) (unknown) Ur Culture Indicated ? Specimen cultured (units unknown) (unknown) (unknown) (no date) (unknown) (unknown) Ur Culture Indicated? (units unknown) (unknown) (unknown) (no date) (unknown) (unknown) Ur Leukocyte Ester[place] e 1+ H (units unknown) (unknown) (unknown) (no date) (unknown) (unknown) Ur Leukocyte Esterase (units unknown) (unknown) (unknown) (no date) (unknown) (unknown) Ur MDMA Scrn (Ecstasy) Negative (units unknown) (unknown) (unknown) (no date) (unknown) (unknown) Ur MDMA Scrn (Ecstasy) (units unknown) (unknown) (unknown) (no date) (unknown) (unknown) Ur Oxycodone Screen Negative (units unknown) (unknown) (unknown) (no date) (unknown) (unknown) Ur Oxycodone Screen (units unknown) (unknown) (unknown) (no date) (unknown) (unknown) Ur Phencyclidine Scr n Negative (units unknown) (unknown) (unknown) (no date) (unknown) (unknown) Ur Phencyclidine Scrn (units unknown) (unknown) (unknown) (no date) (unknown) (unknown) Ur Specific [place] 1.015 (units unknown) (unknown) (unknown) (no date) (unknown) (unknown) Ur Specific [place] (units unknown) (unknown) (unknown) (no date) (unknown) (unknown) Urine Appearance Clear (units unknown) (unknown) (unknown) (no date) (unknown) (unknown) Urine Appearance (units unknown) (unknown) (unknown) (no date) (unknown) (unknown) Urine Bacteria Many (>30) H (units unknown) (unknown) (unknown) (no date) (unknown) (unknown) Urine Bacteria (units unknown) (unknown) (unknown) (no date) (unknown) (unknown) Urine Bilirubin Negative (units unknown) (unknown) (unknown) (no date) (unknown) (unknown) Urine Bilirubin (units unknown) (unknown) (unknown) (no date) (unknown) (unknown) Urine Cocaine Screen Negative (units unknown) (unknown) (unknown) (no date) (unknown) (unknown) Urine Cocaine Screen (units unknown) (unknown) (unknown) (no date) (unknown) (unknown) Urine Color Yellow (units unknown) (unknown) (unknown) (no date) (unknown) (unknown) Urine Color (units unknown) (unknown) (unknown) (no date) (unknown) (unknown) Urine Glucose (UA) Negative (units unknown) (unknown) (unknown) (no date) (unknown) (unknown) Urine Glucose (UA) (units unknown) (unknown) (unknown) (no date) (unknown) (unknown) Urine Ketones Negative (units unknown) (unknown) (unknown) (no date) (unknown) (unknown) Urine Ketones (units unknown) (unknown) (unknown) (no date) (unknown) (unknown) Urine Methadone Screen Negative (units unknown) (unknown) (unknown) (no date) (unknown) (unknown) Urine Methadone Screen (units unknown) (unknown) (unknown) (no date) (unknown) (unknown) Urine Nitrate Positive H (units unknown) (unknown) (unknown) (no date) (unknown) (unknown) Urine Nitrate (units unknown) (unknown) (unknown) (no date) (unknown) (unknown) Urine Occult Blood Negative (units unknown) (unknown) (unknown) (no date) (unknown) (unknown) Urine Occult Blood (units unknown) (unknown) (unknown) (no date) (unknown) (unknown) Urine Test Negative (units unknown) (unknown) (unknown) (no date) (unknown) (unknown) Urine Test (units unknown) (unknown) (unknown) (no date) (unknown) (unknown) Urine Protein Negative (units unknown) (unknown) (unknown) (no date) (unknown) (unknown) Urine Protein (units unknown) (unknown) (unknown) (no date) (unknown) (unknown) Urine RBC None seen (units unknown) (unknown) (unknown) (no date) (unknown) (unknown) Urine RBC (units unknown) (unknown) (unknown) (no date) (unknown) (unknown) Urine Urobilinogen 0.2 (units unknown) (unknown) (unknown) (no date) (unknown) (unknown) Urine Urobilinogen (units unknown) (unknown) (unknown) (no date) (unknown) (unknown) Urine WBC 10-30/hpf H (units unknown) (unknown) (unknown) (no date) (unknown) (unknown) Urine WBC (units unknown) (unknown) (unknown) (no date) (unknown) (unknown) Urine pH 6.0 (units unknown) (unknown) (unknown) (no date) (unknown) (unknown) Urine pH (units unknown) (unknown) (unknown) (no date) (unknown) (unknown) VTE (units unknown) (unknown) (unknown) (no date) (unknown) (unknown) Visit Medications (administered) (units unknown) (unknown) (unknown) (no date) (unknown) (unknown) Vital Signs (units unknown) (unknown) (unknown) (no date) (unknown) (unknown) WBC 5.1 (units unknown) (unknown) (unknown) (no date) (unknown) (unknown) WBC 5.2 (units unknown) (unknown) (unknown) (no date) (unknown) (unknown) WBC (units unknown) (unknown) (unknown) (no date) (unknown) (unknown) Will continue to monitor volume responsiveness and potential need for pressors (units unknown) (unknown) (unknown) (no date) (unknown) (unknown) [Embedded Image Not Available] (units unknown) (unknown) (unknown) (no date) (unknown) (unknown) [Rx Confirmed 08/01/22] (units unknown) (unknown) (unknown) (no date) (unknown) (unknown) chlordiazepoxide HCl 25 mg capsule See Rx Instructions .Route .COMPLEX #30 caps (units unknown) (unknown) (unknown) (no date) (unknown) (unknown) communication: [place] a activated (units unknown) (unknown) (unknown) (no date) (unknown) (unknown) dexmedeTOMIDine in 0.9 % NaCL 400 mcg in 100 mls @ 2.699 mls/hr 08/08/22 22:48 (units unknown) (unknown) (unknown) (no date) (unknown) (unknown) disulfiram 250 mg tablet 250 mg PO DAILY #30 tabs 08/03/22 [Rx] (units unknown) (unknown) (unknown) (no date) (unknown) (unknown) fluoxetine 10 mg capsule 10 mg PO DAILY 07/13/22 [History Confirmed 08/01/22] (units unknown) (unknown) (unknown) (no date) (unknown) (unknown) for UTI- Initially recieved 1 L LR bolus and BP improved. Ordered another 1 L (units unknown) (unknown) (unknown) (no date) (unknown) (unknown) hydroxyzine HCl 50 m g tablet 50 mg PO DAILY 07/13/22 [History Confirmed (units unknown) (unknown) (unknown) (no date) (unknown) (unknown) multivitamin with folic acid 400 mcg tablet (Tab-A-Kael) 1 tab PO DAILY #30 tabs (units unknown) (unknown) (unknown) (no date) (unknown) (unknown) pantoprazole 40 mg tablet,delayed release 40 mg PO 0700 #30 tabs 07/14/22 [Rx (units unknown) (unknown) (unknown) (no date) (unknown) (unknown) possibly component o f sepsis as well (units unknown) (unknown) (unknown) (no date) (unknown) (unknown) quetiapine 300 mg tablet 300 mg PO DAILY 07/13/22 [History Confirmed 08/01/22] (units unknown) (unknown) (unknown) (no date) (unknown) (unknown) setting of acute alcohol intoxication on admission (Etoh level >300) However (units unknown) (unknown) (unknown) (no date) (unknown) (unknown) thiamine mononitrate (vit B1) 100 mg tablet 100 mg PO DAILY #30 tabs 07/14/22 (units unknown) (unknown) (unknown) (no date) (unknown) (unknown) was able to take her PO librium (units unknown) (unknown) (unknown) (no date) (unknown) (unknown) will order procalcitonin (units unknown) (unknown) Result panel 2300 (unknown) (no date) (unknown) (unknown) (no value) (units unknown) (unknown) (unknown) (no date) (unknown) (unknown) (1) Abnormal urinalysis: (units unknown) (unknown) (unknown) (no date) (unknown) (unknown) (2) Alcohol intoxication: (units unknown) (unknown) (unknown) (no date) (unknown) (unknown) (3) Alcohol withdrawal: (units unknown) (unknown) (unknown) (no date) (unknown) (unknown) (past 8 hours): (units unknown) (unknown) (unknown) (no date) (unknown) (unknown) 0.2 MCG/KG/HR (units unknown) (unknown) (unknown) (no date) (unknown) (unknown) [id number] (units unknown) (unknown) (unknown) (no date) (unknown) (unknown) 01:00 08/09/22 (units unknown) (unknown) (unknown) (no date) (unknown) (unknown) 01:06 08/09/22 (units unknown) (unknown) (unknown) (no date) (unknown) (unknown) 01:06 (units unknown) (unknown) (unknown) (no date) (unknown) (unknown) 01:29 08/09/22 (units unknown) (unknown) (unknown) (no date) (unknown) (unknown) 01:29 (units unknown) (unknown) (unknown) (no date) (unknown) (unknown) 02:00 08/09/22 (units unknown) (unknown) (unknown) (no date) (unknown) (unknown) 07/14/22 [Rx Confirmed 08/01/22] (units unknown) (unknown) (unknown) (no date) (unknown) (unknown) 08/01/22] (units unknown) (unknown) (unknown) (no date) (unknown) (unknown) 08/03/22 [Rx] (units unknown) (unknown) (unknown) (no date) (unknown) (unknown) 08/08/22 08/08/22 08/08/22 (units unknown) (unknown) (unknown) (no date) (unknown) (unknown) 08/08/22 08/08/22 08/09/22 (units unknown) (unknown) (unknown) (no date) (unknown) (unknown) 08/09/22 08/09/22 08/09/22 (units unknown) (unknown) (unknown) (no date) (unknown) (unknown) 08/09/22 08/09/22 (units unknown) (unknown) (unknown) (no date) (unknown) (unknown) 08/09/22 04:16 (units unknown) (unknown) (unknown) (no date) (unknown) (unknown) 08/09/22 05:06 (units unknown) (unknown) (unknown) (no date) (unknown) (unknown) 08/09/22 (units unknown) (unknown) (unknown) (no date) (unknown) (unknown) 03:00 08/09/22 (units unknown) (unknown) (unknown) (no date) (unknown) (unknown) 03:00 (units unknown) (unknown) (unknown) (no date) (unknown) (unknown) 03:02 08/09/22 (units unknown) (unknown) (unknown) (no date) (unknown) (unknown) 03:02 (units unknown) (unknown) (unknown) (no date) (unknown) (unknown) 04:00 08/09/22 (units unknown) (unknown) (unknown) (no date) (unknown) (unknown) 04:16 04:16 04:30 (units unknown) (unknown) (unknown) (no date) (unknown) (unknown) 04:20 08/09/22 (units unknown) (unknown) (unknown) (no date) (unknown) (unknown) 04:20 (units unknown) (unknown) (unknown) (no date) (unknown) (unknown) 04:30 04:30 (units unknown) (unknown) (unknown) (no date) (unknown) (unknown) 05:00 08/09/22 (units unknown) (unknown) (unknown) (no date) (unknown) (unknown) 05:00 (units unknown) (unknown) (unknown) (no date) (unknown) (unknown) 05:02 08/09/22 (units unknown) (unknown) (unknown) (no date) (unknown) (unknown) 05:20 08/09/22 (units unknown) (unknown) (unknown) (no date) (unknown) (unknown) 05:20 (units unknown) (unknown) (unknown) (no date) (unknown) (unknown) 05:34 08/09/22 (units unknown) (unknown) (unknown) (no date) (unknown) (unknown) 05:34 (units unknown) (unknown) (unknown) (no date) (unknown) (unknown) 06:00 08/09/22 (units unknown) (unknown) (unknown) (no date) (unknown) (unknown) 06:24 08/09/22 (units unknown) (unknown) (unknown) (no date) (unknown) (unknown) 06:24 (units unknown) (unknown) (unknown) (no date) (unknown) (unknown) 07:00 08/09/22 (units unknown) (unknown) (unknown) (no date) (unknown) (unknown) 07:00 (units unknown) (unknown) (unknown) (no date) (unknown) (unknown) 07:35 (units unknown) (unknown) (unknown) (no date) (unknown) (unknown) 21:00 21:00 21:00 (units unknown) (unknown) (unknown) (no date) (unknown) (unknown) 21:00 22:30 04:16 (units unknown) (unknown) (unknown) (no date) (unknown) (unknown) ALT 51 H (units unknown) (unknown) (unknown) (no date) (unknown) (unknown) ALT 64 H (units unknown) (unknown) (unknown) (no date) (unknown) (unknown) ALT (units unknown) (unknown) (unknown) (no date) (unknown) (unknown) AST 288 H (units unknown) (unknown) (unknown) (no date) (unknown) (unknown) AST 424 H (units unknown) (unknown) (unknown) (no date) (unknown) (unknown) AST (units unknown) (unknown) (unknown) (no date) (unknown) (unknown) Age/Sex: 31 / F (units unknown) (unknown) (unknown) (no date) (unknown) (unknown) Albumin 3.6 (units unknown) (unknown) (unknown) (no date) (unknown) (unknown) Albumin 4.4 (units unknown) (unknown) (unknown) (no date) (unknown) (unknown) Albumin (units unknown) (unknown) (unknown) (no date) (unknown) (unknown) Albumin/Globulin Ratio 1.3 (units unknown) (unknown) (unknown) (no date) (unknown) (unknown) Albumin/Globulin Ratio 1.5 (units unknown) (unknown) (unknown) (no date) (unknown) (unknown) Albumin/Globulin Ratio (units unknown) (unknown) (unknown) (no date) (unknown) (unknown) Alcohol Withdrawal (units unknown) (unknown) (unknown) (no date) (unknown) (unknown) Alkaline Phosphatase 59 (units unknown) (unknown) (unknown) (no date) (unknown) (unknown) Alkaline Phosphatase 71 (units unknown) (unknown) (unknown) (no date) (unknown) (unknown) Alkaline Phosphatase (units unknown) (unknown) (unknown) (no date) (unknown) (unknown) Assessment + Plan (units unknown) (unknown) (unknown) (no date) (unknown) (unknown) Assessment and plan (units unknown) (unknown) (unknown) (no date) (unknown) (unknown) BUN 7 (units unknown) (unknown) (unknown) (no date) (unknown) (unknown) BUN 8 (units unknown) (unknown) (unknown) (no date) (unknown) (unknown) BUN (units unknown) (unknown) (unknown) (no date) (unknown) (unknown) BUN/Creatinine Ratio 8.9 (units unknown) (unknown) (unknown) (no date) (unknown) (unknown) BUN/Creatinine Ratio 9.2 (units unknown) (unknown) (unknown) (no date) (unknown) (unknown) BUN/Creatinine Ratio (units unknown) (unknown) (unknown) (no date) (unknown) (unknown) Baso # (Auto) 100 (units unknown) (unknown) (unknown) (no date) (unknown) (unknown) Baso # (Auto) (units unknown) (unknown) (unknown) (no date) (unknown) (unknown) Baso % (Auto) 1.9 (units unknown) (unknown) (unknown) (no date) (unknown) (unknown) Baso % (Auto) 2.5 H (units unknown) (unknown) (unknown) (no date) (unknown) (unknown) Baso % (Auto) (units unknown) (unknown) (unknown) (no date) (unknown) (unknown) Blood Pressure 73/40 L 75/39 L (units unknown) (unknown) (unknown) (no date) (unknown) (unknown) Blood Pressure 74/40 L (units unknown) (unknown) (unknown) (no date) (unknown) (unknown) Blood Pressure 77/42 L 80/45 L (units unknown) (unknown) (unknown) (no date) (unknown) (unknown) Blood Pressure 77/47 L (units unknown) (unknown) (unknown) (no date) (unknown) (unknown) Blood Pressure 78/43 L (units unknown) (unknown) (unknown) (no date) (unknown) (unknown) Blood Pressure 78/48 L (units unknown) (unknown) (unknown) (no date) (unknown) (unknown) Blood Pressure 80/44 L 79/43 L (units unknown) (unknown) (unknown) (no date) (unknown) (unknown) Blood Pressure 82/44 L 71/42 L (units unknown) (unknown) (unknown) (no date) (unknown) (unknown) Blood Pressure 86/53 L 83/50 L (units unknown) (unknown) (unknown) (no date) (unknown) (unknown) CIWA protocol with ativan (units unknown) (unknown) (unknown) (no date) (unknown) (unknown) CIWAPRN PRN Administration (units unknown) (unknown) (unknown) (no date) (unknown) (unknown) Calcium 7.7 L (units unknown) (unknown) (unknown) (no date) (unknown) (unknown) Calcium 8.4 (units unknown) (unknown) (unknown) (no date) (unknown) (unknown) Calcium (units unknown) (unknown) (unknown) (no date) (unknown) (unknown) Carbon Dioxide 30 (units unknown) (unknown) (unknown) (no date) (unknown) (unknown) Carbon Dioxide 33 H (units unknown) (unknown) (unknown) (no date) (unknown) (unknown) Carbon Dioxide (units unknown) (unknown) (unknown) (no date) (unknown) (unknown) Cardio (units unknown) (unknown) (unknown) (no date) (unknown) (unknown) Ceftriaxone Sodium 1,000 mg/ 100 mls @ 200 mls/hr 08/09/22 07:00 08/09/22 (units unknown) (unknown) (unknown) (no date) (unknown) (unknown) Check LA (units unknown) (unknown) (unknown) (no date) (unknown) (unknown) Chlordiazepoxide 25 Mg Capsule PO 50 mg (units unknown) (unknown) (unknown) (no date) (unknown) (unknown) Chlordiazepoxide HCl 50 mg 08/09/22 00:00 08/09/22 06:12 (units unknown) (unknown) (unknown) (no date) (unknown) (unknown) Chloride 104 (units unknown) (unknown) (unknown) (no date) (unknown) (unknown) Chloride 107 (units unknown) (unknown) (unknown) (no date) (unknown) (unknown) Chloride (units unknown) (unknown) (unknown) (no date) (unknown) (unknown) Confirmed 08/01/22] (units unknown) (unknown) (unknown) (no date) (unknown) (unknown) Conjugated Bilirubin 0.0 (units unknown) (unknown) (unknown) (no date) (unknown) (unknown) Conjugated Bilirubin (units unknown) (unknown) (unknown) (no date) (unknown) (unknown) Consent obtained for tele-bioinformatics technician care: Yes (units unknown) (unknown) (unknown) (no date) (unknown) (unknown) Continue IV fluids, MVI, Thiamine (units unknown) (unknown) (unknown) (no date) (unknown) (unknown) Creatinine 0.76 (units unknown) (unknown) (unknown) (no date) (unknown) (unknown) Creatinine 0.90 (units unknown) (unknown) (unknown) (no date) (unknown) (unknown) Creatinine (units unknown) (unknown) (unknown) (no date) (unknown) (unknown) Culture pending (units unknown) (unknown) (unknown) (no date) (unknown) (unknown) Current Medications (units unknown) (unknown) (unknown) (no date) (unknown) (unknown) : 1990 Acct:[id number] (units unknown) (unknown) (unknown) (no date) (unknown) (unknown) Date of Service: 08/08/22 (units unknown) (unknown) (unknown) (no date) (unknown) (unknown) Deep Vein Thrombosis/Pulmonary Embolism Present on Admission: No (units unknown) (unknown) (unknown) (no date) (unknown) (unknown) ETOH level high on admission (units unknown) (unknown) (unknown) (no date) (unknown) (unknown) Eos # (Auto) 0 (units unknown) (unknown) (unknown) (no date) (unknown) (unknown) Eos # (Auto) (units unknown) (unknown) (unknown) (no date) (unknown) (unknown) Eos % (Auto) 0.7 L (units unknown) (unknown) (unknown) (no date) (unknown) (unknown) Eos % (Auto) 0.8 L (units unknown) (unknown) (unknown) (no date) (unknown) (unknown) Eos % (Auto) (units unknown) (unknown) (unknown) (no date) (unknown) (unknown) Estimated GFR > 60 (units unknown) (unknown) (unknown) (no date) (unknown) (unknown) Estimated GFR (units unknown) (unknown) (unknown) (no date) (unknown) (unknown) Ethyl Alcohol 393 H (units unknown) (unknown) (unknown) (no date) (unknown) (unknown) Ethyl Alcohol (units unknown) (unknown) (unknown) (no date) (unknown) (unknown) Exam Narrative: (units unknown) (unknown) (unknown) (no date) (unknown) (unknown) Exam (units unknown) (unknown) (unknown) (no date) (unknown) (unknown) Generic Name Dose Route Start Last Admin (units unknown) (unknown) (unknown) (no date) (unknown) (unknown) Globulin 2.4 (units unknown) (unknown) (unknown) (no date) (unknown) (unknown) Globulin 3.3 (units unknown) (unknown) (unknown) (no date) (unknown) (unknown) Globulin (units unknown) (unknown) (unknown) (no date) (unknown) (unknown) Glucose 84 (units unknown) (unknown) (unknown) (no date) (unknown) (unknown) Glucose 92 (units unknown) (unknown) (unknown) (no date) (unknown) (unknown) Glucose (units unknown) (unknown) (unknown) (no date) (unknown) (unknown) Hct 31.4 L (units unknown) (unknown) (unknown) (no date) (unknown) (unknown) Hct 37.0 (units unknown) (unknown) (unknown) (no date) (unknown) (unknown) Hct (units unknown) (unknown) (unknown) (no date) (unknown) (unknown) Hgb 10.1 L (units unknown) (unknown) (unknown) (no date) (unknown) (unknown) Hgb 11.9 L (units unknown) (unknown) (unknown) (no date) (unknown) (unknown) Hgb (units unknown) (unknown) (unknown) (no date) (unknown) (unknown) Home Medications (units unknown) (unknown) (unknown) (no date) (unknown) (unknown) IF [place] ACTIVATED, patient seen via real-time interactive audiovisual (units unknown) (unknown) (unknown) (no date) (unknown) (unknown) Interval history: (units unknown) (unknown) (unknown) (no date) (unknown) (unknown) [address] [address] (units unknown) (unknown) (unknown) (no date) (unknown) (unknown) LR this am after BP 80's/40's (units unknown) (unknown) (unknown) (no date) (unknown) (unknown) Laboratory Results - last 24 hr (units unknown) (unknown) (unknown) (no date) (unknown) (unknown) Labs (units unknown) (unknown) (unknown) (no date) (unknown) (unknown) Labs: (units unknown) (unknown) (unknown) (no date) (unknown) (unknown) Lipase 408 H (units unknown) (unknown) (unknown) (no date) (unknown) (unknown) Lipase (units unknown) (unknown) (unknown) (no date) (unknown) (unknown) Lorazepam 0 mg 08/08/22 22:48 08/08/22 23:00 (units unknown) (unknown) (unknown) (no date) (unknown) (unknown) Lorazepam 2 Mg/Ml In j IV 2 mg (units unknown) (unknown) (unknown) (no date) (unknown) (unknown) Lymph # (Auto) 2600 (units unknown) (unknown) (unknown) (no date) (unknown) (unknown) Lymph # (Auto) 2800 (units unknown) (unknown) (unknown) (no date) (unknown) (unknown) Lymph # (Auto) (units unknown) (unknown) (unknown) (no date) (unknown) (unknown) Lymph % (Auto) 51.5 H (units unknown) (unknown) (unknown) (no date) (unknown) (unknown) Lymph % (Auto) 54.2 H (units unknown) (unknown) (unknown) (no date) (unknown) (unknown) Lymph % (Auto) (units unknown) (unknown) (unknown) (no date) (unknown) (unknown) MAP 65, receiving bolus (units unknown) (unknown) (unknown) (no date) (unknown) (unknown) MCH 25.4 L (units unknown) (unknown) (unknown) (no date) (unknown) (unknown) MCH 25.7 L (units unknown) (unknown) (unknown) (no date) (unknown) (unknown) MCH (units unknown) (unknown) (unknown) (no date) (unknown) (unknown) MCHC 32.1 (units unknown) (unknown) (unknown) (no date) (unknown) (unknown) MCHC 32.2 (units unknown) (unknown) (unknown) (no date) (unknown) (unknown) MCHC (units unknown) (unknown) (unknown) (no date) (unknown) (unknown) MCV 79.0 L (units unknown) (unknown) (unknown) (no date) (unknown) (unknown) MCV 80.2 (units unknown) (unknown) (unknown) (no date) (unknown) (unknown) MCV (units unknown) (unknown) (unknown) (no date) (unknown) (unknown) Magnesium 2.2 (units unknown) (unknown) (unknown) (no date) (unknown) (unknown) Magnesium (units unknown) (unknown) (unknown) (no date) (unknown) (unknown) Medications: (units unknown) (unknown) (unknown) (no date) (unknown) (unknown) [place] # (Auto) 300 (units unknown) (unknown) (unknown) (no date) (unknown) (unknown) [place] # (Auto) 400 (units unknown) (unknown) (unknown) (no date) (unknown) (unknown) [place] # (Auto) (units unknown) (unknown) (unknown) (no date) (unknown) (unknown) [place] % (Auto) 6.5 (units unknown) (unknown) (unknown) (no date) (unknown) (unknown) [place] % (Auto) 8.6 (units unknown) (unknown) (unknown) (no date) (unknown) (unknown) [place] % (Auto) (units unknown) (unknown) (unknown) (no date) (unknown) (unknown) Narrative (units unknown) (unknown) (unknown) (no date) (unknown) (unknown) Nausea And Vomiting (units unknown) (unknown) (unknown) (no date) (unknown) (unknown) Neut # (Auto) 1900 (units unknown) (unknown) (unknown) (no date) (unknown) (unknown) Neut # (Auto) (units unknown) (unknown) (unknown) (no date) (unknown) (unknown) Neut % (Auto) 36.6 L (units unknown) (unknown) (unknown) (no date) (unknown) (unknown) Neut % (Auto) 36.7 L (units unknown) (unknown) (unknown) (no date) (unknown) (unknown) Neut % (Auto) (units unknown) (unknown) (unknown) (no date) (unknown) (unknown) No distress, sleepin g in bed- on room air (units unknown) (unknown) (unknown) (no date) (unknown) (unknown) Objective (units unknown) (unknown) (unknown) (no date) (unknown) (unknown) Ondansetron 4 Mg/2 M l Inj IV 4 mg (units unknown) (unknown) (unknown) (no date) (unknown) (unknown) Ondansetron HCl 4 mg 08/08/22 22:48 08/08/22 23:09 (units unknown) (unknown) (unknown) (no date) (unknown) (unknown) 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: Bedside RN (units unknown) (unknown) (unknown) (no date) (unknown) (unknown) Other: (units unknown) (unknown) (unknown) (no date) (unknown) (unknown) Oxygen Delivery Method Room Air (units unknown) (unknown) (unknown) (no date) (unknown) (unknown) Patient Location: ICU (units unknown) (unknown) (unknown) (no date) (unknown) (unknown) Patient admitted for alcohol withdrawal. Precedex gtt turned off at 5 am- She (units unknown) (unknown) (unknown) (no date) (unknown) (unknown) Patient has been mildly hypotensive, but fluid responsive, Likely dehydration in (units unknown) (unknown) (unknown) (no date) (unknown) (unknown) Patient: Sarah Connors MR#: M (units unknown) (unknown) (unknown) (no date) (unknown) (unknown) Plan: (units unknown) (unknown) (unknown) (no date) (unknown) (unknown) Plt Count 332 (units unknown) (unknown) (unknown) (no date) (unknown) (unknown) Plt Count 396 (units unknown) (unknown) (unknown) (no date) (unknown) (unknown) Plt Count (units unknown) (unknown) (unknown) (no date) (unknown) (unknown) Potassium 3.5 (units unknown) (unknown) (unknown) (no date) (unknown) (unknown) Potassium 3.6 (units unknown) (unknown) (unknown) (no date) (unknown) (unknown) Potassium (units unknown) (unknown) (unknown) (no date) (unknown) (unknown) Precedex IV 0 mcg/kg/hr (units unknown) (unknown) (unknown) (no date) (unknown) (unknown) Precedex gtt currently off, will continue to monitor need for precedex gtt (units unknown) (unknown) (unknown) (no date) (unknown) (unknown) Protocol (units unknown) (unknown) (unknown) (no date) (unknown) (unknown) Provider location (State): [place] (units unknown) (unknown) (unknown) (no date) (unknown) (unknown) Provider: Shameka Prince MD (units unknown) (unknown) (unknown) (no date) (unknown) (unknown) Pulse Oximetry 95 95 (units unknown) (unknown) (unknown) (no date) (unknown) (unknown) Pulse Oximetry 95 96 (units unknown) (unknown) (unknown) (no date) (unknown) (unknown) Pulse Oximetry 95 (units unknown) (unknown) (unknown) (no date) (unknown) (unknown) Pulse Oximetry 96 (units unknown) (unknown) (unknown) (no date) (unknown) (unknown) Pulse Oximetry 97 96 (units unknown) (unknown) (unknown) (no date) (unknown) (unknown) Pulse Oximetry 97 (units unknown) (unknown) (unknown) (no date) (unknown) (unknown) Pulse Oximetry 99 99 (units unknown) (unknown) (unknown) (no date) (unknown) (unknown) Pulse Rate 69 72 (units unknown) (unknown) (unknown) (no date) (unknown) (unknown) Pulse Rate 71 (units unknown) (unknown) (unknown) (no date) (unknown) (unknown) Pulse Rate 72 (units unknown) (unknown) (unknown) (no date) (unknown) (unknown) Pulse Rate 75 69 (units unknown) (unknown) (unknown) (no date) (unknown) (unknown) Pulse Rate 75 75 (units unknown) (unknown) (unknown) (no date) (unknown) (unknown) Pulse Rate 75 78 (units unknown) (unknown) (unknown) (no date) (unknown) (unknown) Pulse Rate 75 (units unknown) (unknown) (unknown) (no date) (unknown) (unknown) Pulse Rate 76 71 (units unknown) (unknown) (unknown) (no date) (unknown) (unknown) Pulse Rate 79 76 (units unknown) (unknown) (unknown) (no date) (unknown) (unknown) Q24H SANDY Administration (units unknown) (unknown) (unknown) (no date) (unknown) (unknown) Q6HR SANDY Administration (units unknown) (unknown) (unknown) (no date) (unknown) (unknown) Q8HR PRN Administration (units unknown) (unknown) (unknown) (no date) (unknown) (unknown) Quality TeleICU (units unknown) (unknown) (unknown) (no date) (unknown) (unknown) RBC 3.98 L (units unknown) (unknown) (unknown) (no date) (unknown) (unknown) RBC 4.61 (units unknown) (unknown) (unknown) (no date) (unknown) (unknown) RBC (units unknown) (unknown) (unknown) (no date) (unknown) (unknown) RDW 19.5 H (units unknown) (unknown) (unknown) (no date) (unknown) (unknown) RDW 19.7 H (units unknown) (unknown) (unknown) (no date) (unknown) (unknown) RDW (units unknown) (unknown) (unknown) (no date) (unknown) (unknown) Respiratory Rate 14 16 (units unknown) (unknown) (unknown) (no date) (unknown) (unknown) Respiratory Rate 16 16 (units unknown) (unknown) (unknown) (no date) (unknown) (unknown) Respiratory Rate 18 19 (units unknown) (unknown) (unknown) (no date) (unknown) (unknown) Respiratory Rate 18 (units unknown) (unknown) (unknown) (no date) (unknown) (unknown) Respiratory Rate 19 (units unknown) (unknown) (unknown) (no date) (unknown) (unknown) Respiratory Rate 21 20 (units unknown) (unknown) (unknown) (no date) (unknown) (unknown) Respiratory Rate 27 H (units unknown) (unknown) (unknown) (no date) (unknown) (unknown) Respiratory Rate 34 H 23 (units unknown) (unknown) (unknown) (no date) (unknown) (unknown) Respiratory Rate 37 H 16 (units unknown) (unknown) (unknown) (no date) (unknown) (unknown) Respiratory Rate 37 H (units unknown) (unknown) (unknown) (no date) (unknown) (unknown) SARS-CoV-2 (PCR) Negative (units unknown) (unknown) (unknown) (no date) (unknown) (unknown) SARS-CoV-2 (PCR) (units unknown) (unknown) (unknown) (no date) (unknown) (unknown) She remains mildly hypotensive and urine is estefany in color, she is being treated (units unknown) (unknown) (unknown) (no date) (unknown) (unknown) Signed By: (units unknown) (unknown) (unknown) (no date) (unknown) (unknown) Sodium 145 (units unknown) (unknown) (unknown) (no date) (unknown) (unknown) Sodium 148 H D (units unknown) (unknown) (unknown) (no date) (unknown) (unknown) Sodium Chloride IV 08/12/22 06:59 200 mls/hr (units unknown) (unknown) (unknown) (no date) (unknown) (unknown) Sodium (units unknown) (unknown) (unknown) (no date) (unknown) (unknown) Started on ceftriaxone (units unknown) (unknown) (unknown) (no date) (unknown) (unknown) Status: Acute (units unknown) (unknown) (unknown) (no date) (unknown) (unknown) Subjective (units unknown) (unknown) (unknown) (no date) (unknown) (unknown) TITRATE SANDY 0 mls/hr (units unknown) (unknown) (unknown) (no date) (unknown) (unknown) Teleintensivist Progress Note (units unknown) (unknown) (unknown) (no date) (unknown) (unknown) Temperature 98.6 F (units unknown) (unknown) (unknown) (no date) (unknown) (unknown) Temperature (units unknown) (unknown) (unknown) (no date) (unknown) (unknown) Titration (units unknown) (unknown) (unknown) (no date) (unknown) (unknown) Total Bilirubin 0.3 (units unknown) (unknown) (unknown) (no date) (unknown) (unknown) Total Bilirubin 0.4 (units unknown) (unknown) (unknown) (no date) (unknown) (unknown) Total Bilirubin (units unknown) (unknown) (unknown) (no date) (unknown) (unknown) Total Protein 6.0 L (units unknown) (unknown) (unknown) (no date) (unknown) (unknown) Total Protein 7.7 (units unknown) (unknown) (unknown) (no date) (unknown) (unknown) Total Protein (units unknown) (unknown) (unknown) (no date) (unknown) (unknown) Trade Name Edel PRN Reason Stop Dose Admin (units unknown) (unknown) (unknown) (no date) (unknown) (unknown) U Benzodiazepines Scrn Positive H (units unknown) (unknown) (unknown) (no date) (unknown) (unknown) U Benzodiazepines Scrn (units unknown) (unknown) (unknown) (no date) (unknown) (unknown) U Marijuana (THC) Screen Negative (units unknown) (unknown) (unknown) (no date) (unknown) (unknown) U Marijuana (THC) Screen (units unknown) (unknown) (unknown) (no date) (unknown) (unknown) U Methamphetamines Scrn Negative (units unknown) (unknown) (unknown) (no date) (unknown) (unknown) U Methamphetamines Scrn (units unknown) (unknown) (unknown) (no date) (unknown) (unknown) U Opiates 300ng/mL cut Negative (units unknown) (unknown) (unknown) (no date) (unknown) (unknown) U Opiates 300ng/mL cut (units unknown) (unknown) (unknown) (no date) (unknown) (unknown) U Tricyclic Antidepress Positive H (units unknown) (unknown) (unknown) (no date) (unknown) (unknown) U Tricyclic Antidepress (units unknown) (unknown) (unknown) (no date) (unknown) (unknown) UA +, urine estefany colored c/f UTI (units unknown) (unknown) (unknown) (no date) (unknown) (unknown) Unconjugated Bilirubin 0.0 (units unknown) (unknown) (unknown) (no date) (unknown) (unknown) Unconjugated Bilirubin (units unknown) (unknown) (unknown) (no date) (unknown) (unknown) Ur Amphetamines Screen Negative (units unknown) (unknown) (unknown) (no date) (unknown) (unknown) Ur Amphetamines Screen (units unknown) (unknown) (unknown) (no date) (unknown) (unknown) Ur Barbiturates Screen Positive H (units unknown) (unknown) (unknown) (no date) (unknown) (unknown) Ur Barbiturates Screen (units unknown) (unknown) (unknown) (no date) (unknown) (unknown) Ur Culture Indicated ? Specimen cultured (units unknown) (unknown) (unknown) (no date) (unknown) (unknown) Ur Culture Indicated? (units unknown) (unknown) (unknown) (no date) (unknown) (unknown) Ur Leukocyte [place]ster[place] e 1+ H (units unknown) (unknown) (unknown) (no date) (unknown) (unknown) Ur Leukocyte Esterase (units unknown) (unknown) (unknown) (no date) (unknown) (unknown) Ur MDMA Scrn (Ecstasy) Negative (units unknown) (unknown) (unknown) (no date) (unknown) (unknown) Ur MDMA Scrn (Ecstasy) (units unknown) (unknown) (unknown) (no date) (unknown) (unknown) Ur Oxycodone Screen Negative (units unknown) (unknown) (unknown) (no date) (unknown) (unknown) Ur Oxycodone Screen (units unknown) (unknown) (unknown) (no date) (unknown) (unknown) Ur Phencyclidine Scr n Negative (units unknown) (unknown) (unknown) (no date) (unknown) (unknown) Ur Phencyclidine Scrn (units unknown) (unknown) (unknown) (no date) (unknown) (unknown) Ur Specific [place] 1.015 (units unknown) (unknown) (unknown) (no date) (unknown) (unknown) Ur Specific [place] (units unknown) (unknown) (unknown) (no date) (unknown) (unknown) Urine Appearance Clear (units unknown) (unknown) (unknown) (no date) (unknown) (unknown) Urine Appearance (units unknown) (unknown) (unknown) (no date) (unknown) (unknown) Urine Bacteria Many (>30) H (units unknown) (unknown) (unknown) (no date) (unknown) (unknown) Urine Bacteria (units unknown) (unknown) (unknown) (no date) (unknown) (unknown) Urine Bilirubin Negative (units unknown) (unknown) (unknown) (no date) (unknown) (unknown) Urine Bilirubin (units unknown) (unknown) (unknown) (no date) (unknown) (unknown) Urine Cocaine Screen Negative (units unknown) (unknown) (unknown) (no date) (unknown) (unknown) Urine Cocaine Screen (units unknown) (unknown) (unknown) (no date) (unknown) (unknown) Urine Color Yellow (units unknown) (unknown) (unknown) (no date) (unknown) (unknown) Urine Color (units unknown) (unknown) (unknown) (no date) (unknown) (unknown) Urine Glucose (UA) Negative (units unknown) (unknown) (unknown) (no date) (unknown) (unknown) Urine Glucose (UA) (units unknown) (unknown) (unknown) (no date) (unknown) (unknown) Urine Ketones Negative (units unknown) (unknown) (unknown) (no date) (unknown) (unknown) Urine Ketones (units unknown) (unknown) (unknown) (no date) (unknown) (unknown) Urine Methadone Screen Negative (units unknown) (unknown) (unknown) (no date) (unknown) (unknown) Urine Methadone Screen (units unknown) (unknown) (unknown) (no date) (unknown) (unknown) Urine Nitrate Positive H (units unknown) (unknown) (unknown) (no date) (unknown) (unknown) Urine Nitrate (units unknown) (unknown) (unknown) (no date) (unknown) (unknown) Urine Occult Blood Negative (units unknown) (unknown) (unknown) (no date) (unknown) (unknown) Urine Occult Blood (units unknown) (unknown) (unknown) (no date) (unknown) (unknown) Urine Test Negative (units unknown) (unknown) (unknown) (no date) (unknown) (unknown) Urine Test (units unknown) (unknown) (unknown) (no date) (unknown) (unknown) Urine Protein Negative (units unknown) (unknown) (unknown) (no date) (unknown) (unknown) Urine Protein (units unknown) (unknown) (unknown) (no date) (unknown) (unknown) Urine RBC None seen (units unknown) (unknown) (unknown) (no date) (unknown) (unknown) Urine RBC (units unknown) (unknown) (unknown) (no date) (unknown) (unknown) Urine Urobilinogen 0.2 (units unknown) (unknown) (unknown) (no date) (unknown) (unknown) Urine Urobilinogen (units unknown) (unknown) (unknown) (no date) (unknown) (unknown) Urine WBC 10-30/hpf H (units unknown) (unknown) (unknown) (no date) (unknown) (unknown) Urine WBC (units unknown) (unknown) (unknown) (no date) (unknown) (unknown) Urine pH 6.0 (units unknown) (unknown) (unknown) (no date) (unknown) (unknown) Urine pH (units unknown) (unknown) (unknown) (no date) (unknown) (unknown) VTE (units unknown) (unknown) (unknown) (no date) (unknown) (unknown) Visit Medications (administered) (units unknown) (unknown) (unknown) (no date) (unknown) (unknown) Vital Signs (units unknown) (unknown) (unknown) (no date) (unknown) (unknown) WBC 5.1 (units unknown) (unknown) (unknown) (no date) (unknown) (unknown) WBC 5.2 (units unknown) (unknown) (unknown) (no date) (unknown) (unknown) WBC (units unknown) (unknown) (unknown) (no date) (unknown) (unknown) Will continue to monitor volume responsiveness and potential need for pressors (units unknown) (unknown) (unknown) (no date) (unknown) (unknown) [Embedded Image Not Available] (units unknown) (unknown) (unknown) (no date) (unknown) (unknown) [Rx Confirmed 08/01/22] (units unknown) (unknown) (unknown) (no date) (unknown) (unknown) chlordiazepoxide HCl 25 mg capsule See Rx Instructions .Route .COMPLEX #30 caps (units unknown) (unknown) (unknown) (no date) (unknown) (unknown) communication: [place] a activated (units unknown) (unknown) (unknown) (no date) (unknown) (unknown) dexmedeTOMIDine in 0.9 % NaCL 400 mcg in 100 mls @ 2.699 mls/hr 08/08/22 22:48 (units unknown) (unknown) (unknown) (no date) (unknown) (unknown) disulfiram 250 mg tablet 250 mg PO DAILY #30 tabs 08/03/22 [Rx] (units unknown) (unknown) (unknown) (no date) (unknown) (unknown) fluoxetine 10 mg capsule 10 mg PO DAILY 07/13/22 [History Confirmed 08/01/22] (units unknown) (unknown) (unknown) (no date) (unknown) (unknown) for UTI- Initially recieved 1 L LR bolus and BP improved. Ordered another 1 L (units unknown) (unknown) (unknown) (no date) (unknown) (unknown) hydroxyzine HCl 50 m g tablet 50 mg PO DAILY 07/13/22 [History Confirmed (units unknown) (unknown) (unknown) (no date) (unknown) (unknown) librium PO (units unknown) (unknown) (unknown) (no date) (unknown) (unknown) multivitamin with folic acid 400 mcg tablet (Tab-A-Kael) 1 tab PO DAILY #30 tabs (units unknown) (unknown) (unknown) (no date) (unknown) (unknown) pantoprazole 40 mg tablet,delayed release 40 mg PO 0700 #30 tabs 07/14/22 [Rx (units unknown) (unknown) (unknown) (no date) (unknown) (unknown) possibly component o f sepsis as well (units unknown) (unknown) (unknown) (no date) (unknown) (unknown) quetiapine 300 mg tablet 300 mg PO DAILY 07/13/22 [History Confirmed 08/01/22] (units unknown) (unknown) (unknown) (no date) (unknown) (unknown) setting of acute alcohol intoxication on admission (Etoh level >300) However (units unknown) (unknown) (unknown) (no date) (unknown) (unknown) thiamine mononitrate (vit B1) 100 mg tablet 100 mg PO DAILY #30 tabs 07/14/22 (units unknown) (unknown) (unknown) (no date) (unknown) (unknown) was able to take her PO librium (units unknown) (unknown) (unknown) (no date) (unknown) (unknown) will order procalcitonin (units unknown) (unknown) Result panel [id number] (unknown) (no date) (unknown) (unknown) (no value) (units unknown) (unknown) (unknown) (no date) (unknown) (unknown) (1) Abnormal urinalysis: (units unknown) (unknown) (unknown) (no date) (unknown) (unknown) (2) Alcohol intoxication: (units unknown) (unknown) (unknown) (no date) (unknown) (unknown) (3) Alcohol withdrawal: (units unknown) (unknown) (unknown) (no date) (unknown) (unknown) (past 8 hours): (units unknown) (unknown) (unknown) (no date) (unknown) (unknown) 0.2 MCG/KG/HR (units unknown) (unknown) (unknown) (no date) (unknown) (unknown) [id number] (units unknown) (unknown) (unknown) (no date) (unknown) (unknown) 01:00 08/09/22 (units unknown) (unknown) (unknown) (no date) (unknown) (unknown) 01:06 08/09/22 (units unknown) (unknown) (unknown) (no date) (unknown) (unknown) 01:06 (units unknown) (unknown) (unknown) (no date) (unknown) (unknown) 01:29 08/09/22 (units unknown) (unknown) (unknown) (no date) (unknown) (unknown) 01:29 (units unknown) (unknown) (unknown) (no date) (unknown) (unknown) 02:00 08/09/22 (units unknown) (unknown) (unknown) (no date) (unknown) (unknown) 07/14/22 [Rx Confirmed 08/01/22] (units unknown) (unknown) (unknown) (no date) (unknown) (unknown) 08/01/22] (units unknown) (unknown) (unknown) (no date) (unknown) (unknown) 08/03/22 [Rx] (units unknown) (unknown) (unknown) (no date) (unknown) (unknown) 08/08/22 08/08/22 08/08/22 (units unknown) (unknown) (unknown) (no date) (unknown) (unknown) 08/08/22 08/08/22 08/09/22 (units unknown) (unknown) (unknown) (no date) (unknown) (unknown) 08/09/22 08/09/22 08/09/22 (units unknown) (unknown) (unknown) (no date) (unknown) (unknown) 08/09/22 08/09/22 (units unknown) (unknown) (unknown) (no date) (unknown) (unknown) 08/09/22 04:16 (units unknown) (unknown) (unknown) (no date) (unknown) (unknown) 08/09/22 05:06 (units unknown) (unknown) (unknown) (no date) (unknown) (unknown) 08/09/22 (units unknown) (unknown) (unknown) (no date) (unknown) (unknown) 03:00 08/09/22 (units unknown) (unknown) (unknown) (no date) (unknown) (unknown) 03:00 (units unknown) (unknown) (unknown) (no date) (unknown) (unknown) 03:02 08/09/22 (units unknown) (unknown) (unknown) (no date) (unknown) (unknown) 03:02 (units unknown) (unknown) (unknown) (no date) (unknown) (unknown) 04:00 08/09/22 (units unknown) (unknown) (unknown) (no date) (unknown) (unknown) 04:16 04:16 04:30 (units unknown) (unknown) (unknown) (no date) (unknown) (unknown) 04:20 08/09/22 (units unknown) (unknown) (unknown) (no date) (unknown) (unknown) 04:20 (units unknown) (unknown) (unknown) (no date) (unknown) (unknown) 04:30 04:30 (units unknown) (unknown) (unknown) (no date) (unknown) (unknown) 05:00 08/09/22 (units unknown) (unknown) (unknown) (no date) (unknown) (unknown) 05:00 (units unknown) (unknown) (unknown) (no date) (unknown) (unknown) 05:02 08/09/22 (units unknown) (unknown) (unknown) (no date) (unknown) (unknown) 05:20 08/09/22 (units unknown) (unknown) (unknown) (no date) (unknown) (unknown) 05:20 (units unknown) (unknown) (unknown) (no date) (unknown) (unknown) 05:34 08/09/22 (units unknown) (unknown) (unknown) (no date) (unknown) (unknown) 05:34 (units unknown) (unknown) (unknown) (no date) (unknown) (unknown) 06:00 08/09/22 (units unknown) (unknown) (unknown) (no date) (unknown) (unknown) 06:24 08/09/22 (units unknown) (unknown) (unknown) (no date) (unknown) (unknown) 06:24 (units unknown) (unknown) (unknown) (no date) (unknown) (unknown) 07:00 08/09/22 (units unknown) (unknown) (unknown) (no date) (unknown) (unknown) 07:00 (units unknown) (unknown) (unknown) (no date) (unknown) (unknown) 07:35 (units unknown) (unknown) (unknown) (no date) (unknown) (unknown) 21:00 21:00 21:00 (units unknown) (unknown) (unknown) (no date) (unknown) (unknown) 21:00 22:30 04:16 (units unknown) (unknown) (unknown) (no date) (unknown) (unknown) ALT 51 H (units unknown) (unknown) (unknown) (no date) (unknown) (unknown) ALT 64 H (units unknown) (unknown) (unknown) (no date) (unknown) (unknown) ALT (units unknown) (unknown) (unknown) (no date) (unknown) (unknown) AST 288 H (units unknown) (unknown) (unknown) (no date) (unknown) (unknown) AST 424 H (units unknown) (unknown) (unknown) (no date) (unknown) (unknown) AST (units unknown) (unknown) (unknown) (no date) (unknown) (unknown) Age/Sex: 31 / F (units unknown) (unknown) (unknown) (no date) (unknown) (unknown) Albumin 3.6 (units unknown) (unknown) (unknown) (no date) (unknown) (unknown) Albumin 4.4 (units unknown) (unknown) (unknown) (no date) (unknown) (unknown) Albumin (units unknown) (unknown) (unknown) (no date) (unknown) (unknown) Albumin/Globulin Ratio 1.3 (units unknown) (unknown) (unknown) (no date) (unknown) (unknown) Albumin/Globulin Ratio 1.5 (units unknown) (unknown) (unknown) (no date) (unknown) (unknown) Albumin/Globulin Ratio (units unknown) (unknown) (unknown) (no date) (unknown) (unknown) Alcohol Withdrawal (units unknown) (unknown) (unknown) (no date) (unknown) (unknown) Alkaline Phosphatase 59 (units unknown) (unknown) (unknown) (no date) (unknown) (unknown) Alkaline Phosphatase 71 (units unknown) (unknown) (unknown) (no date) (unknown) (unknown) Alkaline Phosphatase (units unknown) (unknown) (unknown) (no date) (unknown) (unknown) Assessment + Plan narrative: (units unknown) (unknown) (unknown) (no date) (unknown) (unknown) Assessment + Plan (units unknown) (unknown) (unknown) (no date) (unknown) (unknown) Assessment and plan (units unknown) (unknown) (unknown) (no date) (unknown) (unknown) BUN 7 (units unknown) (unknown) (unknown) (no date) (unknown) (unknown) BUN 8 (units unknown) (unknown) (unknown) (no date) (unknown) (unknown) BUN (units unknown) (unknown) (unknown) (no date) (unknown) (unknown) BUN/Creatinine Ratio 8.9 (units unknown) (unknown) (unknown) (no date) (unknown) (unknown) BUN/Creatinine Ratio 9.2 (units unknown) (unknown) (unknown) (no date) (unknown) (unknown) BUN/Creatinine Ratio (units unknown) (unknown) (unknown) (no date) (unknown) (unknown) Baso # (Auto) 100 (units unknown) (unknown) (unknown) (no date) (unknown) (unknown) Baso # (Auto) (units unknown) (unknown) (unknown) (no date) (unknown) (unknown) Baso % (Auto) 1.9 (units unknown) (unknown) (unknown) (no date) (unknown) (unknown) Baso % (Auto) 2.5 H (units unknown) (unknown) (unknown) (no date) (unknown) (unknown) Baso % (Auto) (units unknown) (unknown) (unknown) (no date) (unknown) (unknown) Blood Pressure 73/40 L 75/39 L (units unknown) (unknown) (unknown) (no date) (unknown) (unknown) Blood Pressure 74/40 L (units unknown) (unknown) (unknown) (no date) (unknown) (unknown) Blood Pressure 77/42 L 80/45 L (units unknown) (unknown) (unknown) (no date) (unknown) (unknown) Blood Pressure 77/47 L (units unknown) (unknown) (unknown) (no date) (unknown) (unknown) Blood Pressure 78/43 L (units unknown) (unknown) (unknown) (no date) (unknown) (unknown) Blood Pressure 78/48 L (units unknown) (unknown) (unknown) (no date) (unknown) (unknown) Blood Pressure 80/44 L 79/43 L (units unknown) (unknown) (unknown) (no date) (unknown) (unknown) Blood Pressure 82/44 L 71/42 L (units unknown) (unknown) (unknown) (no date) (unknown) (unknown) Blood Pressure 86/53 L 83/50 L (units unknown) (unknown) (unknown) (no date) (unknown) (unknown) CIWA protocol with ativan (units unknown) (unknown) (unknown) (no date) (unknown) (unknown) CIWAPRN PRN Administration (units unknown) (unknown) (unknown) (no date) (unknown) (unknown) Calcium 7.7 L (units unknown) (unknown) (unknown) (no date) (unknown) (unknown) Calcium 8.4 (units unknown) (unknown) (unknown) (no date) (unknown) (unknown) Calcium (units unknown) (unknown) (unknown) (no date) (unknown) (unknown) Carbon Dioxide 30 (units unknown) (unknown) (unknown) (no date) (unknown) (unknown) Carbon Dioxide 33 H (units unknown) (unknown) (unknown) (no date) (unknown) (unknown) Carbon Dioxide (units unknown) (unknown) (unknown) (no date) (unknown) (unknown) Cardio (units unknown) (unknown) (unknown) (no date) (unknown) (unknown) Ceftriaxone Sodium 1,000 mg/ 100 mls @ 200 mls/hr 08/09/22 07:00 08/09/22 (units unknown) (unknown) (unknown) (no date) (unknown) (unknown) Check LA (units unknown) (unknown) (unknown) (no date) (unknown) (unknown) Chlordiazepoxide 25 Mg Capsule PO 50 mg (units unknown) (unknown) (unknown) (no date) (unknown) (unknown) Chlordiazepoxide HCl 50 mg 03/30/23 00:00 08/09/22 06:12 (units unknown) (unknown) (unknown) (no date) (unknown) (unknown) Chloride 104 (units unknown) (unknown) (unknown) (no date) (unknown) (unknown) Chloride 107 (units unknown) (unknown) (unknown) (no date) (unknown) (unknown) Chloride (units unknown) (unknown) (unknown) (no date) (unknown) (unknown) Confirmed 08/01/22] (units unknown) (unknown) (unknown) (no date) (unknown) (unknown) Conjugated Bilirubin 0.0 (units unknown) (unknown) (unknown) (no date) (unknown) (unknown) Conjugated Bilirubin (units unknown) (unknown) (unknown) (no date) (unknown) (unknown) Consent obtained for tele-bioinformatics technician care: Yes (units unknown) (unknown) (unknown) (no date) (unknown) (unknown) Continue IV fluids, MVI, Thiamine, folate (units unknown) (unknown) (unknown) (no date) (unknown) (unknown) Creatinine 0.76 (units unknown) (unknown) (unknown) (no date) (unknown) (unknown) Creatinine 0.90 (units unknown) (unknown) (unknown) (no date) (unknown) (unknown) Creatinine (units unknown) (unknown) (unknown) (no date) (unknown) (unknown) Culture pending (units unknown) (unknown) (unknown) (no date) (unknown) (unknown) Current Medications (units unknown) (unknown) (unknown) (no date) (unknown) (unknown) : 1990 Acct:[id number] (units unknown) (unknown) (unknown) (no date) (unknown) (unknown) Date of Service: 08/08/22 (units unknown) (unknown) (unknown) (no date) (unknown) (unknown) Deep Vein Thrombosis/Pulmonary Embolism Present on Admission: No (units unknown) (unknown) (unknown) (no date) (unknown) (unknown) ETOH level high on admission (units unknown) (unknown) (unknown) (no date) (unknown) (unknown) Eos # (Auto) 0 (units unknown) (unknown) (unknown) (no date) (unknown) (unknown) Eos # (Auto) (units unknown) (unknown) (unknown) (no date) (unknown) (unknown) Eos % (Auto) 0.7 L (units unknown) (unknown) (unknown) (no date) (unknown) (unknown) Eos % (Auto) 0.8 L (units unknown) (unknown) (unknown) (no date) (unknown) (unknown) Eos % (Auto) (units unknown) (unknown) (unknown) (no date) (unknown) (unknown) Estimated GFR > 60 (units unknown) (unknown) (unknown) (no date) (unknown) (unknown) Estimated GFR (units unknown) (unknown) (unknown) (no date) (unknown) (unknown) Ethyl Alcohol 393 H (units unknown) (unknown) (unknown) (no date) (unknown) (unknown) Ethyl Alcohol (units unknown) (unknown) (unknown) (no date) (unknown) (unknown) Exam Narrative: (units unknown) (unknown) (unknown) (no date) (unknown) (unknown) Exam (units unknown) (unknown) (unknown) (no date) (unknown) (unknown) Generic Name Dose Route Start Last Admin (units unknown) (unknown) (unknown) (no date) (unknown) (unknown) Globulin 2.4 (units unknown) (unknown) (unknown) (no date) (unknown) (unknown) Globulin 3.3 (units unknown) (unknown) (unknown) (no date) (unknown) (unknown) Globulin (units unknown) (unknown) (unknown) (no date) (unknown) (unknown) Glucose 84 (units unknown) (unknown) (unknown) (no date) (unknown) (unknown) Glucose 92 (units unknown) (unknown) (unknown) (no date) (unknown) (unknown) Glucose (units unknown) (unknown) (unknown) (no date) (unknown) (unknown) Hct 31.4 L (units unknown) (unknown) (unknown) (no date) (unknown) (unknown) Hct 37.0 (units unknown) (unknown) (unknown) (no date) (unknown) (unknown) Hct (units unknown) (unknown) (unknown) (no date) (unknown) (unknown) Hgb 10.1 L (units unknown) (unknown) (unknown) (no date) (unknown) (unknown) Hgb 11.9 L (units unknown) (unknown) (unknown) (no date) (unknown) (unknown) Hgb (units unknown) (unknown) (unknown) (no date) (unknown) (unknown) Home Medications (units unknown) (unknown) (unknown) (no date) (unknown) (unknown) IF CAMERA ACTIVATED, patient seen via real-time interactive audiovisual (units unknown) (unknown) (unknown) (no date) (unknown) (unknown) Interval history: (units unknown) (unknown) (unknown) (no date) (unknown) (unknown) [address] [id number] (units unknown) (unknown) (unknown) (no date) (unknown) (unknown) LR this am after BP 80's/40's (units unknown) (unknown) (unknown) (no date) (unknown) (unknown) Laboratory Results - last 24 hr (units unknown) (unknown) (unknown) (no date) (unknown) (unknown) Labs (units unknown) (unknown) (unknown) (no date) (unknown) (unknown) Labs: (units unknown) (unknown) (unknown) (no date) (unknown) (unknown) Lipase 408 H (units unknown) (unknown) (unknown) (no date) (unknown) (unknown) Lipase (units unknown) (unknown) (unknown) (no date) (unknown) (unknown) Lorazepam 0 mg 08/08/22 22:48 08/08/22 23:00 (units unknown) (unknown) (unknown) (no date) (unknown) (unknown) Lorazepam 2 Mg/Ml In j IV 2 mg (units unknown) (unknown) (unknown) (no date) (unknown) (unknown) Lymph # (Auto) 2600 (units unknown) (unknown) (unknown) (no date) (unknown) (unknown) Lymph # (Auto) 2800 (units unknown) (unknown) (unknown) (no date) (unknown) (unknown) Lymph # (Auto) (units unknown) (unknown) (unknown) (no date) (unknown) (unknown) Lymph % (Auto) 51.5 H (units unknown) (unknown) (unknown) (no date) (unknown) (unknown) Lymph % (Auto) 54.2 H (units unknown) (unknown) (unknown) (no date) (unknown) (unknown) Lymph % (Auto) (units unknown) (unknown) (unknown) (no date) (unknown) (unknown) MAP 65, receiving bolus (units unknown) (unknown) (unknown) (no date) (unknown) (unknown) MCH 25.4 L (units unknown) (unknown) (unknown) (no date) (unknown) (unknown) MCH 25.7 L (units unknown) (unknown) (unknown) (no date) (unknown) (unknown) MCH (units unknown) (unknown) (unknown) (no date) (unknown) (unknown) MCHC 32.1 (units unknown) (unknown) (unknown) (no date) (unknown) (unknown) MCHC 32.2 (units unknown) (unknown) (unknown) (no date) (unknown) (unknown) MCHC (units unknown) (unknown) (unknown) (no date) (unknown) (unknown) MCV 79.0 L (units unknown) (unknown) (unknown) (no date) (unknown) (unknown) MCV 80.2 (units unknown) (unknown) (unknown) (no date) (unknown) (unknown) MCV (units unknown) (unknown) (unknown) (no date) (unknown) (unknown) Magnesium 2.2 (units unknown) (unknown) (unknown) (no date) (unknown) (unknown) Magnesium (units unknown) (unknown) (unknown) (no date) (unknown) (unknown) Medications: (units unknown) (unknown) (unknown) (no date) (unknown) (unknown) [place] # (Auto) 300 (units unknown) (unknown) (unknown) (no date) (unknown) (unknown) [place] # (Auto) 400 (units unknown) (unknown) (unknown) (no date) (unknown) (unknown) [place] # (Auto) (units unknown) (unknown) (unknown) (no date) (unknown) (unknown) [place] % (Auto) 6.5 (units unknown) (unknown) (unknown) (no date) (unknown) (unknown) [place] % (Auto) 8.6 (units unknown) (unknown) (unknown) (no date) (unknown) (unknown) [place] % (Auto) (units unknown) (unknown) (unknown) (no date) (unknown) (unknown) Narrative (units unknown) (unknown) (unknown) (no date) (unknown) (unknown) Nausea And Vomiting (units unknown) (unknown) (unknown) (no date) (unknown) (unknown) Neut # (Auto) 1900 (units unknown) (unknown) (unknown) (no date) (unknown) (unknown) Neut # (Auto) (units unknown) (unknown) (unknown) (no date) (unknown) (unknown) Neut % (Auto) 36.6 L (units unknown) (unknown) (unknown) (no date) (unknown) (unknown) Neut % (Auto) 36.7 L (units unknown) (unknown) (unknown) (no date) (unknown) (unknown) Neut % (Auto) (units unknown) (unknown) (unknown) (no date) (unknown) (unknown) No distress, sleepin g in bed- on room air (units unknown) (unknown) (unknown) (no date) (unknown) (unknown) Objective (units unknown) (unknown) (unknown) (no date) (unknown) (unknown) Ondansetron 4 Mg/2 M l Inj IV 4 mg (units unknown) (unknown) (unknown) (no date) (unknown) (unknown) Ondansetron HCl 4 mg 08/08/22 22:48 08/08/22 23:09 (units unknown) (unknown) (unknown) (no date) (unknown) (unknown) 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: Bedside RN (units unknown) (unknown) (unknown) (no date) (unknown) (unknown) Other: (units unknown) (unknown) (unknown) (no date) (unknown) (unknown) Oxygen Delivery Method Room Air (units unknown) (unknown) (unknown) (no date) (unknown) (unknown) Patient Location: ICU (units unknown) (unknown) (unknown) (no date) (unknown) (unknown) Patient admitted for alcohol withdrawal/detox. She is s/p phenobarb dose in ED. (units unknown) (unknown) (unknown) (no date) (unknown) (unknown) Patient has been mildly hypotensive, but fluid responsive, Likely dehydration in (units unknown) (unknown) (unknown) (no date) (unknown) (unknown) Patient: DorySarah R MR#: M (units unknown) (unknown) (unknown) (no date) (unknown) (unknown) Plan: (units unknown) (unknown) (unknown) (no date) (unknown) (unknown) Plt Count 332 (units unknown) (unknown) (unknown) (no date) (unknown) (unknown) Plt Count 396 (units unknown) (unknown) (unknown) (no date) (unknown) (unknown) Plt Count (units unknown) (unknown) (unknown) (no date) (unknown) (unknown) Potassium 3.5 (units unknown) (unknown) (unknown) (no date) (unknown) (unknown) Potassium 3.6 (units unknown) (unknown) (unknown) (no date) (unknown) (unknown) Potassium (units unknown) (unknown) (unknown) (no date) (unknown) (unknown) Precedex IV 0 mcg/kg/hr (units unknown) (unknown) (unknown) (no date) (unknown) (unknown) Precedex gtt currently off, will continue to monitor need for precedex gtt (units unknown) (unknown) (unknown) (no date) (unknown) (unknown) Precedex gtt turned off at 5 am- She was able to take her PO [place] (units unknown) (unknown) (unknown) (no date) (unknown) (unknown) Protocol (units unknown) (unknown) (unknown) (no date) (unknown) (unknown) Provider location (State): [place] (units unknown) (unknown) (unknown) (no date) (unknown) (unknown) Provider: Shameka Prince MD (units unknown) (unknown) (unknown) (no date) (unknown) (unknown) Pulse Oximetry 95 95 (units unknown) (unknown) (unknown) (no date) (unknown) (unknown) Pulse Oximetry 95 96 (units unknown) (unknown) (unknown) (no date) (unknown) (unknown) Pulse Oximetry 95 (units unknown) (unknown) (unknown) (no date) (unknown) (unknown) Pulse Oximetry 96 (units unknown) (unknown) (unknown) (no date) (unknown) (unknown) Pulse Oximetry 97 96 (units unknown) (unknown) (unknown) (no date) (unknown) (unknown) Pulse Oximetry 97 (units unknown) (unknown) (unknown) (no date) (unknown) (unknown) Pulse Oximetry 99 99 (units unknown) (unknown) (unknown) (no date) (unknown) (unknown) Pulse Rate 69 72 (units unknown) (unknown) (unknown) (no date) (unknown) (unknown) Pulse Rate 71 (units unknown) (unknown) (unknown) (no date) (unknown) (unknown) Pulse Rate 72 (units unknown) (unknown) (unknown) (no date) (unknown) (unknown) Pulse Rate 75 69 (units unknown) (unknown) (unknown) (no date) (unknown) (unknown) Pulse Rate 75 75 (units unknown) (unknown) (unknown) (no date) (unknown) (unknown) Pulse Rate 75 78 (units unknown) (unknown) (unknown) (no date) (unknown) (unknown) Pulse Rate 75 (units unknown) (unknown) (unknown) (no date) (unknown) (unknown) Pulse Rate 76 71 (units unknown) (unknown) (unknown) (no date) (unknown) (unknown) Pulse Rate 79 76 (units unknown) (unknown) (unknown) (no date) (unknown) (unknown) Q24H SANDY Administration (units unknown) (unknown) (unknown) (no date) (unknown) (unknown) Q6HR SANDY Administration (units unknown) (unknown) (unknown) (no date) (unknown) (unknown) Q8HR PRN Administration (units unknown) (unknown) (unknown) (no date) (unknown) (unknown) Quality TeleICU (units unknown) (unknown) (unknown) (no date) (unknown) (unknown) RBC 3.98 L (units unknown) (unknown) (unknown) (no date) (unknown) (unknown) RBC 4.61 (units unknown) (unknown) (unknown) (no date) (unknown) (unknown) RBC (units unknown) (unknown) (unknown) (no date) (unknown) (unknown) RDW 19.5 H (units unknown) (unknown) (unknown) (no date) (unknown) (unknown) RDW 19.7 H (units unknown) (unknown) (unknown) (no date) (unknown) (unknown) RDW (units unknown) (unknown) (unknown) (no date) (unknown) (unknown) Respiratory Rate 14 16 (units unknown) (unknown) (unknown) (no date) (unknown) (unknown) Respiratory Rate 16 16 (units unknown) (unknown) (unknown) (no date) (unknown) (unknown) Respiratory Rate 18 19 (units unknown) (unknown) (unknown) (no date) (unknown) (unknown) Respiratory Rate 18 (units unknown) (unknown) (unknown) (no date) (unknown) (unknown) Respiratory Rate 19 (units unknown) (unknown) (unknown) (no date) (unknown) (unknown) Respiratory Rate 21 20 (units unknown) (unknown) (unknown) (no date) (unknown) (unknown) Respiratory Rate 27 H (units unknown) (unknown) (unknown) (no date) (unknown) (unknown) Respiratory Rate 34 H 23 (units unknown) (unknown) (unknown) (no date) (unknown) (unknown) Respiratory Rate 37 H 16 (units unknown) (unknown) (unknown) (no date) (unknown) (unknown) Respiratory Rate 37 H (units unknown) (unknown) (unknown) (no date) (unknown) (unknown) SARS-CoV-2 (PCR) Negative (units unknown) (unknown) (unknown) (no date) (unknown) (unknown) SARS-CoV-2 (PCR) (units unknown) (unknown) (unknown) (no date) (unknown) (unknown) SCD's for DVT ppx (units unknown) (unknown) (unknown) (no date) (unknown) (unknown) She remains mildly hypotensive and urine is estefany in color, she is being treated (units unknown) (unknown) (unknown) (no date) (unknown) (unknown) Signed By: (units unknown) (unknown) (unknown) (no date) (unknown) (unknown) Sodium 145 (units unknown) (unknown) (unknown) (no date) (unknown) (unknown) Sodium 148 H D (units unknown) (unknown) (unknown) (no date) (unknown) (unknown) Sodium Chloride IV 08/12/22 06:59 200 mls/hr (units unknown) (unknown) (unknown) (no date) (unknown) (unknown) Sodium (units unknown) (unknown) (unknown) (no date) (unknown) (unknown) Started on ceftriaxone (units unknown) (unknown) (unknown) (no date) (unknown) (unknown) Status: Acute (units unknown) (unknown) (unknown) (no date) (unknown) (unknown) Subjective (units unknown) (unknown) (unknown) (no date) (unknown) (unknown) TITRATE SANDY 0 mls/hr (units unknown) (unknown) (unknown) (no date) (unknown) (unknown) Teleintensivist Progress Note (units unknown) (unknown) (unknown) (no date) (unknown) (unknown) Temperature 98.6 F (units unknown) (unknown) (unknown) (no date) (unknown) (unknown) Temperature (units unknown) (unknown) (unknown) (no date) (unknown) (unknown) Time Spent With Patient (units unknown) (unknown) (unknown) (no date) (unknown) (unknown) Time with patient: less than 30 minutes (units unknown) (unknown) (unknown) (no date) (unknown) (unknown) Titration (units unknown) (unknown) (unknown) (no date) (unknown) (unknown) Total Bilirubin 0.3 (units unknown) (unknown) (unknown) (no date) (unknown) (unknown) Total Bilirubin 0.4 (units unknown) (unknown) (unknown) (no date) (unknown) (unknown) Total Bilirubin (units unknown) (unknown) (unknown) (no date) (unknown) (unknown) Total Protein 6.0 L (units unknown) (unknown) (unknown) (no date) (unknown) (unknown) Total Protein 7.7 (units unknown) (unknown) (unknown) (no date) (unknown) (unknown) Total Protein (units unknown) (unknown) (unknown) (no date) (unknown) (unknown) Trade Name Freq PRN Reason Stop Dose Admin (units unknown) (unknown) (unknown) (no date) (unknown) (unknown) U Benzodiazepines Scrn Positive H (units unknown) (unknown) (unknown) (no date) (unknown) (unknown) U Benzodiazepines Scrn (units unknown) (unknown) (unknown) (no date) (unknown) (unknown) U Marijuana (THC) Screen Negative (units unknown) (unknown) (unknown) (no date) (unknown) (unknown) U Marijuana (THC) Screen (units unknown) (unknown) (unknown) (no date) (unknown) (unknown) U Methamphetamines Scrn Negative (units unknown) (unknown) (unknown) (no date) (unknown) (unknown) U Methamphetamines Scrn (units unknown) (unknown) (unknown) (no date) (unknown) (unknown) U Opiates 300ng/mL cut Negative (units unknown) (unknown) (unknown) (no date) (unknown) (unknown) U Opiates 300ng/mL cut (units unknown) (unknown) (unknown) (no date) (unknown) (unknown) U Tricyclic Antidepress Positive H (units unknown) (unknown) (unknown) (no date) (unknown) (unknown) U Tricyclic Antidepress (units unknown) (unknown) (unknown) (no date) (unknown) (unknown) UA +, urine estefany colored c/f UTI (units unknown) (unknown) (unknown) (no date) (unknown) (unknown) Unconjugated Bilirubin 0.0 (units unknown) (unknown) (unknown) (no date) (unknown) (unknown) Unconjugated Bilirubin (units unknown) (unknown) (unknown) (no date) (unknown) (unknown) Ur Amphetamines Screen Negative (units unknown) (unknown) (unknown) (no date) (unknown) (unknown) Ur Amphetamines Screen (units unknown) (unknown) (unknown) (no date) (unknown) (unknown) Ur Barbiturates Screen Positive H (units unknown) (unknown) (unknown) (no date) (unknown) (unknown) Ur Barbiturates Screen (units unknown) (unknown) (unknown) (no date) (unknown) (unknown) Ur Culture Indicated ? Specimen cultured (units unknown) (unknown) (unknown) (no date) (unknown) (unknown) Ur Culture Indicated? (units unknown) (unknown) (unknown) (no date) (unknown) (unknown) Ur Leukocyte Esteras e 1+ H (units unknown) (unknown) (unknown) (no date) (unknown) (unknown) Ur Leukocyte Esterase (units unknown) (unknown) (unknown) (no date) (unknown) (unknown) Ur MDMA Scrn (Ecstasy) Negative (units unknown) (unknown) (unknown) (no date) (unknown) (unknown) Ur MDMA Scrn (Ecstasy) (units unknown) (unknown) (unknown) (no date) (unknown) (unknown) Ur Oxycodone Screen Negative (units unknown) (unknown) (unknown) (no date) (unknown) (unknown) Ur Oxycodone Screen (units unknown) (unknown) (unknown) (no date) (unknown) (unknown) Ur Phencyclidine Scr n Negative (units unknown) (unknown) (unknown) (no date) (unknown) (unknown) Ur Phencyclidine Scrn (units unknown) (unknown) (unknown) (no date) (unknown) (unknown) Ur Specific [place] 1.015 (units unknown) (unknown) (unknown) (no date) (unknown) (unknown) Ur Specific [place] (units unknown) (unknown) (unknown) (no date) (unknown) (unknown) Urine Appearance Clear (units unknown) (unknown) (unknown) (no date) (unknown) (unknown) Urine Appearance (units unknown) (unknown) (unknown) (no date) (unknown) (unknown) Urine Bacteria Many (>30) H (units unknown) (unknown) (unknown) (no date) (unknown) (unknown) Urine Bacteria (units unknown) (unknown) (unknown) (no date) (unknown) (unknown) Urine Bilirubin Negative (units unknown) (unknown) (unknown) (no date) (unknown) (unknown) Urine Bilirubin (units unknown) (unknown) (unknown) (no date) (unknown) (unknown) Urine Cocaine Screen Negative (units unknown) (unknown) (unknown) (no date) (unknown) (unknown) Urine Cocaine Screen (units unknown) (unknown) (unknown) (no date) (unknown) (unknown) Urine Color Yellow (units unknown) (unknown) (unknown) (no date) (unknown) (unknown) Urine Color (units unknown) (unknown) (unknown) (no date) (unknown) (unknown) Urine Glucose (UA) Negative (units unknown) (unknown) (unknown) (no date) (unknown) (unknown) Urine Glucose (UA) (units unknown) (unknown) (unknown) (no date) (unknown) (unknown) Urine Ketones Negative (units unknown) (unknown) (unknown) (no date) (unknown) (unknown) Urine Ketones (units unknown) (unknown) (unknown) (no date) (unknown) (unknown) Urine Methadone Screen Negative (units unknown) (unknown) (unknown) (no date) (unknown) (unknown) Urine Methadone Screen (units unknown) (unknown) (unknown) (no date) (unknown) (unknown) Urine Nitrate Positive H (units unknown) (unknown) (unknown) (no date) (unknown) (unknown) Urine Nitrate (units unknown) (unknown) (unknown) (no date) (unknown) (unknown) Urine Occult Blood Negative (units unknown) (unknown) (unknown) (no date) (unknown) (unknown) Urine Occult Blood (units unknown) (unknown) (unknown) (no date) (unknown) (unknown) Urine Test Negative (units unknown) (unknown) (unknown) (no date) (unknown) (unknown) Urine Test (units unknown) (unknown) (unknown) (no date) (unknown) (unknown) Urine Protein Negative (units unknown) (unknown) (unknown) (no date) (unknown) (unknown) Urine Protein (units unknown) (unknown) (unknown) (no date) (unknown) (unknown) Urine RBC None seen (units unknown) (unknown) (unknown) (no date) (unknown) (unknown) Urine RBC (units unknown) (unknown) (unknown) (no date) (unknown) (unknown) Urine Urobilinogen 0.2 (units unknown) (unknown) (unknown) (no date) (unknown) (unknown) Urine Urobilinogen (units unknown) (unknown) (unknown) (no date) (unknown) (unknown) Urine WBC 10-30/hpf H (units unknown) (unknown) (unknown) (no date) (unknown) (unknown) Urine WBC (units unknown) (unknown) (unknown) (no date) (unknown) (unknown) Urine pH 6.0 (units unknown) (unknown) (unknown) (no date) (unknown) (unknown) Urine pH (units unknown) (unknown) (unknown) (no date) (unknown) (unknown) VTE (units unknown) (unknown) (unknown) (no date) (unknown) (unknown) Visit Medications (administered) (units unknown) (unknown) (unknown) (no date) (unknown) (unknown) Vital Signs (units unknown) (unknown) (unknown) (no date) (unknown) (unknown) WBC 5.1 (units unknown) (unknown) (unknown) (no date) (unknown) (unknown) WBC 5.2 (units unknown) (unknown) (unknown) (no date) (unknown) (unknown) WBC (units unknown) (unknown) (unknown) (no date) (unknown) (unknown) Will continue to monitor volume responsiveness and potential need for pressors (units unknown) (unknown) (unknown) (no date) (unknown) (unknown) Will restart home PPI (units unknown) (unknown) (unknown) (no date) (unknown) (unknown) [Embedded Image Not Available] (units unknown) (unknown) (unknown) (no date) (unknown) (unknown) [Rx Confirmed 08/01/22] (units unknown) (unknown) (unknown) (no date) (unknown) (unknown) chlordiazepoxide HCl 25 mg capsule See Rx Instructions .Route .COMPLEX #30 caps (units unknown) (unknown) (unknown) (no date) (unknown) (unknown) communication: [place] a activated (units unknown) (unknown) (unknown) (no date) (unknown) (unknown) dexmedeTOMIDine in 0.9 % NaCL 400 mcg in 100 mls @ 2.699 mls/hr 08/08/22 22:48 (units unknown) (unknown) (unknown) (no date) (unknown) (unknown) disulfiram 250 mg tablet 250 mg PO DAILY #30 tabs 08/03/22 [Rx] (units unknown) (unknown) (unknown) (no date) (unknown) (unknown) fluoxetine 10 mg capsule 10 mg PO DAILY 07/13/22 [History Confirmed 08/01/22] (units unknown) (unknown) (unknown) (no date) (unknown) (unknown) for UTI- Initially recieved 1 L LR bolus and BP improved. Ordered another 1 L (units unknown) (unknown) (unknown) (no date) (unknown) (unknown) hydroxyzine HCl 50 m g tablet 50 mg PO DAILY 07/13/22 [History Confirmed (units unknown) (unknown) (unknown) (no date) (unknown) (unknown) librium PO (units unknown) (unknown) (unknown) (no date) (unknown) (unknown) multivitamin with folic acid 400 mcg tablet (Tab-A-Kael) 1 tab PO DAILY #30 tabs (units unknown) (unknown) (unknown) (no date) (unknown) (unknown) pantoprazole 40 mg tablet,delayed release 40 mg PO 0700 #30 tabs 07/14/22 [Rx (units unknown) (unknown) (unknown) (no date) (unknown) (unknown) possibly component o f sepsis as well (units unknown) (unknown) (unknown) (no date) (unknown) (unknown) quetiapine 300 mg tablet 300 mg PO DAILY 07/13/22 [History Confirmed 08/01/22] (units unknown) (unknown) (unknown) (no date) (unknown) (unknown) setting of acute alcohol intoxication on admission (Etoh level >300) However (units unknown) (unknown) (unknown) (no date) (unknown) (unknown) thiamine mononitrate (vit B1) 100 mg tablet 100 mg PO DAILY #30 tabs 07/14/22 (units unknown) (unknown) (unknown) (no date) (unknown) (unknown) will order procalcitonin (units unknown) (unknown) Result panel 2302 (unknown) (no date) (unknown) (unknown) (no value) (units unknown) (unknown) (unknown) (no date) (unknown) (unknown) (1) Abnormal urinalysis: (units unknown) (unknown) (unknown) (no date) (unknown) (unknown) (2) Alcohol intoxication: (units unknown) (unknown) (unknown) (no date) (unknown) (unknown) (3) Alcohol withdrawal: (units unknown) (unknown) (unknown) (no date) (unknown) (unknown) (past 8 hours): (units unknown) (unknown) (unknown) (no date) (unknown) (unknown) 0.2 MCG/KG/HR (units unknown) (unknown) (unknown) (no date) (unknown) (unknown) [id number] (units unknown) (unknown) (unknown) (no date) (unknown) (unknown) 01:00 08/09/22 (units unknown) (unknown) (unknown) (no date) (unknown) (unknown) 01:06 08/09/22 (units unknown) (unknown) (unknown) (no date) (unknown) (unknown) 01:06 (units unknown) (unknown) (unknown) (no date) (unknown) (unknown) 01:29 08/09/22 (units unknown) (unknown) (unknown) (no date) (unknown) (unknown) 01:29 (units unknown) (unknown) (unknown) (no date) (unknown) (unknown) 02:00 08/09/22 (units unknown) (unknown) (unknown) (no date) (unknown) (unknown) 07/14/22 [Rx Confirmed 08/01/22] (units unknown) (unknown) (unknown) (no date) (unknown) (unknown) 08/01/22] (units unknown) (unknown) (unknown) (no date) (unknown) (unknown) 08/03/22 [Rx] (units unknown) (unknown) (unknown) (no date) (unknown) (unknown) 08/08/22 08/08/22 08/08/22 (units unknown) (unknown) (unknown) (no date) (unknown) (unknown) 08/08/22 08/08/22 08/09/22 (units unknown) (unknown) (unknown) (no date) (unknown) (unknown) 08/09/22 08/09/22 08/09/22 (units unknown) (unknown) (unknown) (no date) (unknown) (unknown) 08/09/22 08/09/22 (units unknown) (unknown) (unknown) (no date) (unknown) (unknown) 08/09/22 04:16 (units unknown) (unknown) (unknown) (no date) (unknown) (unknown) 08/09/22 05:06 (units unknown) (unknown) (unknown) (no date) (unknown) (unknown) 08/09/22 (units unknown) (unknown) (unknown) (no date) (unknown) (unknown) 03:00 08/09/22 (units unknown) (unknown) (unknown) (no date) (unknown) (unknown) 03:00 (units unknown) (unknown) (unknown) (no date) (unknown) (unknown) 03:02 08/09/22 (units unknown) (unknown) (unknown) (no date) (unknown) (unknown) 03:02 (units unknown) (unknown) (unknown) (no date) (unknown) (unknown) 04:00 08/09/22 (units unknown) (unknown) (unknown) (no date) (unknown) (unknown) 04:16 04:16 04:30 (units unknown) (unknown) (unknown) (no date) (unknown) (unknown) 04:20 08/09/22 (units unknown) (unknown) (unknown) (no date) (unknown) (unknown) 04:20 (units unknown) (unknown) (unknown) (no date) (unknown) (unknown) 04:30 04:30 (units unknown) (unknown) (unknown) (no date) (unknown) (unknown) 05:00 08/09/22 (units unknown) (unknown) (unknown) (no date) (unknown) (unknown) 05:00 (units unknown) (unknown) (unknown) (no date) (unknown) (unknown) 05:02 08/09/22 (units unknown) (unknown) (unknown) (no date) (unknown) (unknown) 05:20 08/09/22 (units unknown) (unknown) (unknown) (no date) (unknown) (unknown) 05:20 (units unknown) (unknown) (unknown) (no date) (unknown) (unknown) 05:34 08/09/22 (units unknown) (unknown) (unknown) (no date) (unknown) (unknown) 05:34 (units unknown) (unknown) (unknown) (no date) (unknown) (unknown) 06:00 08/09/22 (units unknown) (unknown) (unknown) (no date) (unknown) (unknown) 06:24 08/09/22 (units unknown) (unknown) (unknown) (no date) (unknown) (unknown) 06:24 (units unknown) (unknown) (unknown) (no date) (unknown) (unknown) 07:00 08/09/22 (units unknown) (unknown) (unknown) (no date) (unknown) (unknown) 07:00 (units unknown) (unknown) (unknown) (no date) (unknown) (unknown) 07:35 (units unknown) (unknown) (unknown) (no date) (unknown) (unknown) 21:00 21:00 21:00 (units unknown) (unknown) (unknown) (no date) (unknown) (unknown) 21:00 22:30 04:16 (units unknown) (unknown) (unknown) (no date) (unknown) (unknown) ALT 51 H (units unknown) (unknown) (unknown) (no date) (unknown) (unknown) ALT 64 H (units unknown) (unknown) (unknown) (no date) (unknown) (unknown) ALT (units unknown) (unknown) (unknown) (no date) (unknown) (unknown) AST 288 H (units unknown) (unknown) (unknown) (no date) (unknown) (unknown) AST 424 H (units unknown) (unknown) (unknown) (no date) (unknown) (unknown) AST (units unknown) (unknown) (unknown) (no date) (unknown) (unknown) Age/Sex: 31 / F (units unknown) (unknown) (unknown) (no date) (unknown) (unknown) Albumin 3.6 (units unknown) (unknown) (unknown) (no date) (unknown) (unknown) Albumin 4.4 (units unknown) (unknown) (unknown) (no date) (unknown) (unknown) Albumin (units unknown) (unknown) (unknown) (no date) (unknown) (unknown) Albumin/Globulin Ratio 1.3 (units unknown) (unknown) (unknown) (no date) (unknown) (unknown) Albumin/Globulin Ratio 1.5 (units unknown) (unknown) (unknown) (no date) (unknown) (unknown) Albumin/Globulin Ratio (units unknown) (unknown) (unknown) (no date) (unknown) (unknown) Alcohol Withdrawal (units unknown) (unknown) (unknown) (no date) (unknown) (unknown) Alkaline Phosphatase 59 (units unknown) (unknown) (unknown) (no date) (unknown) (unknown) Alkaline Phosphatase 71 (units unknown) (unknown) (unknown) (no date) (unknown) (unknown) Alkaline Phosphatase (units unknown) (unknown) (unknown) (no date) (unknown) (unknown) Assessment + Plan narrative: (units unknown) (unknown) (unknown) (no date) (unknown) (unknown) Assessment + Plan (units unknown) (unknown) (unknown) (no date) (unknown) (unknown) Assessment and plan (units unknown) (unknown) (unknown) (no date) (unknown) (unknown) BUN 7 (units unknown) (unknown) (unknown) (no date) (unknown) (unknown) BUN 8 (units unknown) (unknown) (unknown) (no date) (unknown) (unknown) BUN (units unknown) (unknown) (unknown) (no date) (unknown) (unknown) BUN/Creatinine Ratio 8.9 (units unknown) (unknown) (unknown) (no date) (unknown) (unknown) BUN/Creatinine Ratio 9.2 (units unknown) (unknown) (unknown) (no date) (unknown) (unknown) BUN/Creatinine Ratio (units unknown) (unknown) (unknown) (no date) (unknown) (unknown) Baso # (Auto) 100 (units unknown) (unknown) (unknown) (no date) (unknown) (unknown) Baso # (Auto) (units unknown) (unknown) (unknown) (no date) (unknown) (unknown) Baso % (Auto) 1.9 (units unknown) (unknown) (unknown) (no date) (unknown) (unknown) Baso % (Auto) 2.5 H (units unknown) (unknown) (unknown) (no date) (unknown) (unknown) Baso % (Auto) (units unknown) (unknown) (unknown) (no date) (unknown) (unknown) Blood Pressure 73/40 L 75/39 L (units unknown) (unknown) (unknown) (no date) (unknown) (unknown) Blood Pressure 74/40 L (units unknown) (unknown) (unknown) (no date) (unknown) (unknown) Blood Pressure 77/42 L 80/45 L (units unknown) (unknown) (unknown) (no date) (unknown) (unknown) Blood Pressure 77/47 L (units unknown) (unknown) (unknown) (no date) (unknown) (unknown) Blood Pressure 78/43 L (units unknown) (unknown) (unknown) (no date) (unknown) (unknown) Blood Pressure 78/48 L (units unknown) (unknown) (unknown) (no date) (unknown) (unknown) Blood Pressure 80/44 L 79/43 L (units unknown) (unknown) (unknown) (no date) (unknown) (unknown) Blood Pressure 82/44 L 71/42 L (units unknown) (unknown) (unknown) (no date) (unknown) (unknown) Blood Pressure 86/53 L 83/50 L (units unknown) (unknown) (unknown) (no date) (unknown) (unknown) CIWA protocol with ativan (units unknown) (unknown) (unknown) (no date) (unknown) (unknown) CIWAPRN PRN Administration (units unknown) (unknown) (unknown) (no date) (unknown) (unknown) Calcium 7.7 L (units unknown) (unknown) (unknown) (no date) (unknown) (unknown) Calcium 8.4 (units unknown) (unknown) (unknown) (no date) (unknown) (unknown) Calcium (units unknown) (unknown) (unknown) (no date) (unknown) (unknown) Carbon Dioxide 30 (units unknown) (unknown) (unknown) (no date) (unknown) (unknown) Carbon Dioxide 33 H (units unknown) (unknown) (unknown) (no date) (unknown) (unknown) Carbon Dioxide (units unknown) (unknown) (unknown) (no date) (unknown) (unknown) Cardio (units unknown) (unknown) (unknown) (no date) (unknown) (unknown) Ceftriaxone Sodium 1,000 mg/ 100 mls @ 200 mls/hr 08/09/22 07:00 08/09/22 (units unknown) (unknown) (unknown) (no date) (unknown) (unknown) Check LA (units unknown) (unknown) (unknown) (no date) (unknown) (unknown) Chlordiazepoxide 25 Mg Capsule PO 50 mg (units unknown) (unknown) (unknown) (no date) (unknown) (unknown) Chlordiazepoxide HCl 50 mg 08/09/22 00:00 08/09/22 06:12 (units unknown) (unknown) (unknown) (no date) (unknown) (unknown) Chloride 104 (units unknown) (unknown) (unknown) (no date) (unknown) (unknown) Chloride 107 (units unknown) (unknown) (unknown) (no date) (unknown) (unknown) Chloride (units unknown) (unknown) (unknown) (no date) (unknown) (unknown) Confirmed 08/01/22] (units unknown) (unknown) (unknown) (no date) (unknown) (unknown) Conjugated Bilirubin 0.0 (units unknown) (unknown) (unknown) (no date) (unknown) (unknown) Conjugated Bilirubin (units unknown) (unknown) (unknown) (no date) (unknown) (unknown) Consent obtained for tele-bioinformatics technician care: Yes (units unknown) (unknown) (unknown) (no date) (unknown) (unknown) Continue IV fluids, MVI, Thiamine, folate (units unknown) (unknown) (unknown) (no date) (unknown) (unknown) Creatinine 0.76 (units unknown) (unknown) (unknown) (no date) (unknown) (unknown) Creatinine 0.90 (units unknown) (unknown) (unknown) (no date) (unknown) (unknown) Creatinine (units unknown) (unknown) (unknown) (no date) (unknown) (unknown) Culture pending (units unknown) (unknown) (unknown) (no date) (unknown) (unknown) Current Medications (units unknown) (unknown) (unknown) (no date) (unknown) (unknown) : 1990 Acct:[id number] (units unknown) (unknown) (unknown) (no date) (unknown) (unknown) Date of Service: 08/08/22 (units unknown) (unknown) (unknown) (no date) (unknown) (unknown) Deep Vein Thrombosis/Pulmonary Embolism Present on Admission: No (units unknown) (unknown) (unknown) (no date) (unknown) (unknown) ETOH level high on admission (units unknown) (unknown) (unknown) (no date) (unknown) (unknown) Eos # (Auto) 0 (units unknown) (unknown) (unknown) (no date) (unknown) (unknown) Eos # (Auto) (units unknown) (unknown) (unknown) (no date) (unknown) (unknown) Eos % (Auto) 0.7 L (units unknown) (unknown) (unknown) (no date) (unknown) (unknown) Eos % (Auto) 0.8 L (units unknown) (unknown) (unknown) (no date) (unknown) (unknown) Eos % (Auto) (units unknown) (unknown) (unknown) (no date) (unknown) (unknown) Estimated GFR > 60 (units unknown) (unknown) (unknown) (no date) (unknown) (unknown) Estimated GFR (units unknown) (unknown) (unknown) (no date) (unknown) (unknown) Ethyl Alcohol 393 H (units unknown) (unknown) (unknown) (no date) (unknown) (unknown) Ethyl Alcohol (units unknown) (unknown) (unknown) (no date) (unknown) (unknown) Exam Narrative: (units unknown) (unknown) (unknown) (no date) (unknown) (unknown) Exam (units unknown) (unknown) (unknown) (no date) (unknown) (unknown) Generic Name Dose Route Start Last Admin (units unknown) (unknown) (unknown) (no date) (unknown) (unknown) Globulin 2.4 (units unknown) (unknown) (unknown) (no date) (unknown) (unknown) Globulin 3.3 (units unknown) (unknown) (unknown) (no date) (unknown) (unknown) Globulin (units unknown) (unknown) (unknown) (no date) (unknown) (unknown) Glucose 84 (units unknown) (unknown) (unknown) (no date) (unknown) (unknown) Glucose 92 (units unknown) (unknown) (unknown) (no date) (unknown) (unknown) Glucose (units unknown) (unknown) (unknown) (no date) (unknown) (unknown) Hct 31.4 L (units unknown) (unknown) (unknown) (no date) (unknown) (unknown) Hct 37.0 (units unknown) (unknown) (unknown) (no date) (unknown) (unknown) Hct (units unknown) (unknown) (unknown) (no date) (unknown) (unknown) Hgb 10.1 L (units unknown) (unknown) (unknown) (no date) (unknown) (unknown) Hgb 11.9 L (units unknown) (unknown) (unknown) (no date) (unknown) (unknown) Hgb (units unknown) (unknown) (unknown) (no date) (unknown) (unknown) Home Medications (units unknown) (unknown) (unknown) (no date) (unknown) (unknown) IF [place] ACTIVATED, patient seen via real-time interactive audiovisual (units unknown) (unknown) (unknown) (no date) (unknown) (unknown) Interval history: (units unknown) (unknown) (unknown) (no date) (unknown) (unknown) [address] [address] (units unknown) (unknown) (unknown) (no date) (unknown) (unknown) LR this am after BP 80's/40's (units unknown) (unknown) (unknown) (no date) (unknown) (unknown) Laboratory Results - last 24 hr (units unknown) (unknown) (unknown) (no date) (unknown) (unknown) Labs (units unknown) (unknown) (unknown) (no date) (unknown) (unknown) Labs: (units unknown) (unknown) (unknown) (no date) (unknown) (unknown) Lipase 408 H (units unknown) (unknown) (unknown) (no date) (unknown) (unknown) Lipase (units unknown) (unknown) (unknown) (no date) (unknown) (unknown) Lorazepam 0 mg 08/08/22 22:48 08/08/22 23:00 (units unknown) (unknown) (unknown) (no date) (unknown) (unknown) Lorazepam 2 Mg/Ml In j IV 2 mg (units unknown) (unknown) (unknown) (no date) (unknown) (unknown) Lymph # (Auto) 2600 (units unknown) (unknown) (unknown) (no date) (unknown) (unknown) Lymph # (Auto) 2800 (units unknown) (unknown) (unknown) (no date) (unknown) (unknown) Lymph # (Auto) (units unknown) (unknown) (unknown) (no date) (unknown) (unknown) Lymph % (Auto) 51.5 H (units unknown) (unknown) (unknown) (no date) (unknown) (unknown) Lymph % (Auto) 54.2 H (units unknown) (unknown) (unknown) (no date) (unknown) (unknown) Lymph % (Auto) (units unknown) (unknown) (unknown) (no date) (unknown) (unknown) MAP 65, receiving bolus (units unknown) (unknown) (unknown) (no date) (unknown) (unknown) MCH 25.4 L (units unknown) (unknown) (unknown) (no date) (unknown) (unknown) MCH 25.7 L (units unknown) (unknown) (unknown) (no date) (unknown) (unknown) MCH (units unknown) (unknown) (unknown) (no date) (unknown) (unknown) MCHC 32.1 (units unknown) (unknown) (unknown) (no date) (unknown) (unknown) MCHC 32.2 (units unknown) (unknown) (unknown) (no date) (unknown) (unknown) MCHC (units unknown) (unknown) (unknown) (no date) (unknown) (unknown) MCV 79.0 L (units unknown) (unknown) (unknown) (no date) (unknown) (unknown) MCV 80.2 (units unknown) (unknown) (unknown) (no date) (unknown) (unknown) MCV (units unknown) (unknown) (unknown) (no date) (unknown) (unknown) Magnesium 2.2 (units unknown) (unknown) (unknown) (no date) (unknown) (unknown) Magnesium (units unknown) (unknown) (unknown) (no date) (unknown) (unknown) Medications: (units unknown) (unknown) (unknown) (no date) (unknown) (unknown) [place] # (Auto) 300 (units unknown) (unknown) (unknown) (no date) (unknown) (unknown) [place] # (Auto) 400 (units unknown) (unknown) (unknown) (no date) (unknown) (unknown) [place] # (Auto) (units unknown) (unknown) (unknown) (no date) (unknown) (unknown) [place] % (Auto) 6.5 (units unknown) (unknown) (unknown) (no date) (unknown) (unknown) [place] % (Auto) 8.6 (units unknown) (unknown) (unknown) (no date) (unknown) (unknown) [place] % (Auto) (units unknown) (unknown) (unknown) (no date) (unknown) (unknown) Narrative (units unknown) (unknown) (unknown) (no date) (unknown) (unknown) Nausea And Vomiting (units unknown) (unknown) (unknown) (no date) (unknown) (unknown) Neut # (Auto) 1900 (units unknown) (unknown) (unknown) (no date) (unknown) (unknown) Neut # (Auto) (units unknown) (unknown) (unknown) (no date) (unknown) (unknown) Neut % (Auto) 36.6 L (units unknown) (unknown) (unknown) (no date) (unknown) (unknown) Neut % (Auto) 36.7 L (units unknown) (unknown) (unknown) (no date) (unknown) (unknown) Neut % (Auto) (units unknown) (unknown) (unknown) (no date) (unknown) (unknown) No distress, sleepin g in bed- on room air (units unknown) (unknown) (unknown) (no date) (unknown) (unknown) Objective (units unknown) (unknown) (unknown) (no date) (unknown) (unknown) Ondansetron 4 Mg/2 M l Inj IV 4 mg (units unknown) (unknown) (unknown) (no date) (unknown) (unknown) Ondansetron HCl 4 mg 08/08/22 22:48 08/08/22 23:09 (units unknown) (unknown) (unknown) (no date) (unknown) (unknown) 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: Bedside RN (units unknown) (unknown) (unknown) (no date) (unknown) (unknown) Other: (units unknown) (unknown) (unknown) (no date) (unknown) (unknown) Oxygen Delivery Method Room Air (units unknown) (unknown) (unknown) (no date) (unknown) (unknown) Patient Location: ICU (units unknown) (unknown) (unknown) (no date) (unknown) (unknown) Patient admitted for alcohol withdrawal/detox. She is s/p phenobarb dose in ED. (units unknown) (unknown) (unknown) (no date) (unknown) (unknown) Patient has been mildly hypotensive, but fluid responsive, Likely dehydration in (units unknown) (unknown) (unknown) (no date) (unknown) (unknown) Patient: Sarah Connors MR#: M (units unknown) (unknown) (unknown) (no date) (unknown) (unknown) Plan: (units unknown) (unknown) (unknown) (no date) (unknown) (unknown) Plt Count 332 (units unknown) (unknown) (unknown) (no date) (unknown) (unknown) Plt Count 396 (units unknown) (unknown) (unknown) (no date) (unknown) (unknown) Plt Count (units unknown) (unknown) (unknown) (no date) (unknown) (unknown) Potassium 3.5 (units unknown) (unknown) (unknown) (no date) (unknown) (unknown) Potassium 3.6 (units unknown) (unknown) (unknown) (no date) (unknown) (unknown) Potassium (units unknown) (unknown) (unknown) (no date) (unknown) (unknown) Precedex IV 0 mcg/kg/hr (units unknown) (unknown) (unknown) (no date) (unknown) (unknown) Precedex gtt currently off, will continue to monitor need for precedex gtt (units unknown) (unknown) (unknown) (no date) (unknown) (unknown) Precedex gtt turned off at 5 am- She was able to take her PO [facility] (units unknown) (unknown) (unknown) (no date) (unknown) (unknown) Protocol (units unknown) (unknown) (unknown) (no date) (unknown) (unknown) Provider location (State): [place] (units unknown) (unknown) (unknown) (no date) (unknown) (unknown) Provider: Shameka Prince MD (units unknown) (unknown) (unknown) (no date) (unknown) (unknown) Pulse Oximetry 95 95 (units unknown) (unknown) (unknown) (no date) (unknown) (unknown) Pulse Oximetry 95 96 (units unknown) (unknown) (unknown) (no date) (unknown) (unknown) Pulse Oximetry 95 (units unknown) (unknown) (unknown) (no date) (unknown) (unknown) Pulse Oximetry 96 (units unknown) (unknown) (unknown) (no date) (unknown) (unknown) Pulse Oximetry 97 96 (units unknown) (unknown) (unknown) (no date) (unknown) (unknown) Pulse Oximetry 97 (units unknown) (unknown) (unknown) (no date) (unknown) (unknown) Pulse Oximetry 99 99 (units unknown) (unknown) (unknown) (no date) (unknown) (unknown) Pulse Rate 69 72 (units unknown) (unknown) (unknown) (no date) (unknown) (unknown) Pulse Rate 71 (units unknown) (unknown) (unknown) (no date) (unknown) (unknown) Pulse Rate 72 (units unknown) (unknown) (unknown) (no date) (unknown) (unknown) Pulse Rate 75 69 (units unknown) (unknown) (unknown) (no date) (unknown) (unknown) Pulse Rate 75 75 (units unknown) (unknown) (unknown) (no date) (unknown) (unknown) Pulse Rate 75 78 (units unknown) (unknown) (unknown) (no date) (unknown) (unknown) Pulse Rate 75 (units unknown) (unknown) (unknown) (no date) (unknown) (unknown) Pulse Rate 76 71 (units unknown) (unknown) (unknown) (no date) (unknown) (unknown) Pulse Rate 79 76 (units unknown) (unknown) (unknown) (no date) (unknown) (unknown) Q24H SANDY Administration (units unknown) (unknown) (unknown) (no date) (unknown) (unknown) Q6HR SANDY Administration (units unknown) (unknown) (unknown) (no date) (unknown) (unknown) Q8HR PRN Administration (units unknown) (unknown) (unknown) (no date) (unknown) (unknown) Quality TeleICU (units unknown) (unknown) (unknown) (no date) (unknown) (unknown) RBC 3.98 L (units unknown) (unknown) (unknown) (no date) (unknown) (unknown) RBC 4.61 (units unknown) (unknown) (unknown) (no date) (unknown) (unknown) RBC (units unknown) (unknown) (unknown) (no date) (unknown) (unknown) RDW 19.5 H (units unknown) (unknown) (unknown) (no date) (unknown) (unknown) RDW 19.7 H (units unknown) (unknown) (unknown) (no date) (unknown) (unknown) RDW (units unknown) (unknown) (unknown) (no date) (unknown) (unknown) Respiratory Rate 14 16 (units unknown) (unknown) (unknown) (no date) (unknown) (unknown) Respiratory Rate 16 16 (units unknown) (unknown) (unknown) (no date) (unknown) (unknown) Respiratory Rate 18 19 (units unknown) (unknown) (unknown) (no date) (unknown) (unknown) Respiratory Rate 18 (units unknown) (unknown) (unknown) (no date) (unknown) (unknown) Respiratory Rate 19 (units unknown) (unknown) (unknown) (no date) (unknown) (unknown) Respiratory Rate 21 20 (units unknown) (unknown) (unknown) (no date) (unknown) (unknown) Respiratory Rate 27 H (units unknown) (unknown) (unknown) (no date) (unknown) (unknown) Respiratory Rate 34 H 23 (units unknown) (unknown) (unknown) (no date) (unknown) (unknown) Respiratory Rate 37 H 16 (units unknown) (unknown) (unknown) (no date) (unknown) (unknown) Respiratory Rate 37 H (units unknown) (unknown) (unknown) (no date) (unknown) (unknown) SARS-CoV-2 (PCR) Negative (units unknown) (unknown) (unknown) (no date) (unknown) (unknown) SARS-CoV-2 (PCR) (units unknown) (unknown) (unknown) (no date) (unknown) (unknown) SCD's, SQ Heparin fo r DVT ppx (units unknown) (unknown) (unknown) (no date) (unknown) (unknown) She remains mildly hypotensive and urine is estefany in color, she is being treated (units unknown) (unknown) (unknown) (no date) (unknown) (unknown) Signed By: (units unknown) (unknown) (unknown) (no date) (unknown) (unknown) Sodium 145 (units unknown) (unknown) (unknown) (no date) (unknown) (unknown) Sodium 148 H D (units unknown) (unknown) (unknown) (no date) (unknown) (unknown) Sodium Chloride IV 08/12/22 06:59 200 mls/hr (units unknown) (unknown) (unknown) (no date) (unknown) (unknown) Sodium (units unknown) (unknown) (unknown) (no date) (unknown) (unknown) Started on ceftriaxone (units unknown) (unknown) (unknown) (no date) (unknown) (unknown) Status: Acute (units unknown) (unknown) (unknown) (no date) (unknown) (unknown) Subjective (units unknown) (unknown) (unknown) (no date) (unknown) (unknown) TITRATE SANDY 0 mls/hr (units unknown) (unknown) (unknown) (no date) (unknown) (unknown) Teleintensivist Progress Note (units unknown) (unknown) (unknown) (no date) (unknown) (unknown) Temperature 98.6 F (units unknown) (unknown) (unknown) (no date) (unknown) (unknown) Temperature (units unknown) (unknown) (unknown) (no date) (unknown) (unknown) Time Spent With Patient (units unknown) (unknown) (unknown) (no date) (unknown) (unknown) Time with patient: less than 30 minutes (units unknown) (unknown) (unknown) (no date) (unknown) (unknown) Titration (units unknown) (unknown) (unknown) (no date) (unknown) (unknown) Total Bilirubin 0.3 (units unknown) (unknown) (unknown) (no date) (unknown) (unknown) Total Bilirubin 0.4 (units unknown) (unknown) (unknown) (no date) (unknown) (unknown) Total Bilirubin (units unknown) (unknown) (unknown) (no date) (unknown) (unknown) Total Protein 6.0 L (units unknown) (unknown) (unknown) (no date) (unknown) (unknown) Total Protein 7.7 (units unknown) (unknown) (unknown) (no date) (unknown) (unknown) Total Protein (units unknown) (unknown) (unknown) (no date) (unknown) (unknown) Trade Name Edel PRN Reason Stop Dose Admin (units unknown) (unknown) (unknown) (no date) (unknown) (unknown) U Benzodiazepines Scrn Positive H (units unknown) (unknown) (unknown) (no date) (unknown) (unknown) U Benzodiazepines Scrn (units unknown) (unknown) (unknown) (no date) (unknown) (unknown) U Marijuana (THC) Screen Negative (units unknown) (unknown) (unknown) (no date) (unknown) (unknown) U Marijuana (THC) Screen (units unknown) (unknown) (unknown) (no date) (unknown) (unknown) U Methamphetamines Scrn Negative (units unknown) (unknown) (unknown) (no date) (unknown) (unknown) U Methamphetamines Scrn (units unknown) (unknown) (unknown) (no date) (unknown) (unknown) U Opiates 300ng/mL cut Negative (units unknown) (unknown) (unknown) (no date) (unknown) (unknown) U Opiates 300ng/mL cut (units unknown) (unknown) (unknown) (no date) (unknown) (unknown) U Tricyclic Antidepress Positive H (units unknown) (unknown) (unknown) (no date) (unknown) (unknown) U Tricyclic Antidepress (units unknown) (unknown) (unknown) (no date) (unknown) (unknown) UA +, urine estefany colored c/f UTI (units unknown) (unknown) (unknown) (no date) (unknown) (unknown) Unconjugated Bilirubin 0.0 (units unknown) (unknown) (unknown) (no date) (unknown) (unknown) Unconjugated Bilirubin (units unknown) (unknown) (unknown) (no date) (unknown) (unknown) Ur Amphetamines Screen Negative (units unknown) (unknown) (unknown) (no date) (unknown) (unknown) Ur Amphetamines Screen (units unknown) (unknown) (unknown) (no date) (unknown) (unknown) Ur Barbiturates Screen Positive H (units unknown) (unknown) (unknown) (no date) (unknown) (unknown) Ur Barbiturates Screen (units unknown) (unknown) (unknown) (no date) (unknown) (unknown) Ur Culture Indicated ? Specimen cultured (units unknown) (unknown) (unknown) (no date) (unknown) (unknown) Ur Culture Indicated? (units unknown) (unknown) (unknown) (no date) (unknown) (unknown) Ur Leukocyte Esteras e 1+ H (units unknown) (unknown) (unknown) (no date) (unknown) (unknown) Ur Leukocyte Esterase (units unknown) (unknown) (unknown) (no date) (unknown) (unknown) Ur MDMA Scrn (Ecstasy) Negative (units unknown) (unknown) (unknown) (no date) (unknown) (unknown) Ur MDMA Scrn (Ecstasy) (units unknown) (unknown) (unknown) (no date) (unknown) (unknown) Ur Oxycodone Screen Negative (units unknown) (unknown) (unknown) (no date) (unknown) (unknown) Ur Oxycodone Screen (units unknown) (unknown) (unknown) (no date) (unknown) (unknown) Ur Phencyclidine Scr n Negative (units unknown) (unknown) (unknown) (no date) (unknown) (unknown) Ur Phencyclidine Scrn (units unknown) (unknown) (unknown) (no date) (unknown) (unknown) Ur Specific [place] 1.015 (units unknown) (unknown) (unknown) (no date) (unknown) (unknown) Ur Specific [place] (units unknown) (unknown) (unknown) (no date) (unknown) (unknown) Urine Appearance Clear (units unknown) (unknown) (unknown) (no date) (unknown) (unknown) Urine Appearance (units unknown) (unknown) (unknown) (no date) (unknown) (unknown) Urine Bacteria Many (>30) H (units unknown) (unknown) (unknown) (no date) (unknown) (unknown) Urine Bacteria (units unknown) (unknown) (unknown) (no date) (unknown) (unknown) Urine Bilirubin Negative (units unknown) (unknown) (unknown) (no date) (unknown) (unknown) Urine Bilirubin (units unknown) (unknown) (unknown) (no date) (unknown) (unknown) Urine Cocaine Screen Negative (units unknown) (unknown) (unknown) (no date) (unknown) (unknown) Urine Cocaine Screen (units unknown) (unknown) (unknown) (no date) (unknown) (unknown) Urine Color Yellow (units unknown) (unknown) (unknown) (no date) (unknown) (unknown) Urine Color (units unknown) (unknown) (unknown) (no date) (unknown) (unknown) Urine Glucose (UA) Negative (units unknown) (unknown) (unknown) (no date) (unknown) (unknown) Urine Glucose (UA) (units unknown) (unknown) (unknown) (no date) (unknown) (unknown) Urine Ketones Negative (units unknown) (unknown) (unknown) (no date) (unknown) (unknown) Urine Ketones (units unknown) (unknown) (unknown) (no date) (unknown) (unknown) Urine Methadone Screen Negative (units unknown) (unknown) (unknown) (no date) (unknown) (unknown) Urine Methadone Screen (units unknown) (unknown) (unknown) (no date) (unknown) (unknown) Urine Nitrate Positive H (units unknown) (unknown) (unknown) (no date) (unknown) (unknown) Urine Nitrate (units unknown) (unknown) (unknown) (no date) (unknown) (unknown) Urine Occult Blood Negative (units unknown) (unknown) (unknown) (no date) (unknown) (unknown) Urine Occult Blood (units unknown) (unknown) (unknown) (no date) (unknown) (unknown) Urine Test Negative (units unknown) (unknown) (unknown) (no date) (unknown) (unknown) Urine Test (units unknown) (unknown) (unknown) (no date) (unknown) (unknown) Urine Protein Negative (units unknown) (unknown) (unknown) (no date) (unknown) (unknown) Urine Protein (units unknown) (unknown) (unknown) (no date) (unknown) (unknown) Urine RBC None seen (units unknown) (unknown) (unknown) (no date) (unknown) (unknown) Urine RBC (units unknown) (unknown) (unknown) (no date) (unknown) (unknown) Urine Urobilinogen 0.2 (units unknown) (unknown) (unknown) (no date) (unknown) (unknown) Urine Urobilinogen (units unknown) (unknown) (unknown) (no date) (unknown) (unknown) Urine WBC 10-30/hpf H (units unknown) (unknown) (unknown) (no date) (unknown) (unknown) Urine WBC (units unknown) (unknown) (unknown) (no date) (unknown) (unknown) Urine pH 6.0 (units unknown) (unknown) (unknown) (no date) (unknown) (unknown) Urine pH (units unknown) (unknown) (unknown) (no date) (unknown) (unknown) VTE (units unknown) (unknown) (unknown) (no date) (unknown) (unknown) Visit Medications (administered) (units unknown) (unknown) (unknown) (no date) (unknown) (unknown) Vital Signs (units unknown) (unknown) (unknown) (no date) (unknown) (unknown) WBC 5.1 (units unknown) (unknown) (unknown) (no date) (unknown) (unknown) WBC 5.2 (units unknown) (unknown) (unknown) (no date) (unknown) (unknown) WBC (units unknown) (unknown) (unknown) (no date) (unknown) (unknown) Will continue to monitor volume responsiveness and potential need for pressors (units unknown) (unknown) (unknown) (no date) (unknown) (unknown) Will restart home PPI (units unknown) (unknown) (unknown) (no date) (unknown) (unknown) Would keep in ICU today for potential worsening of withdrawal sx and BP (units unknown) (unknown) (unknown) (no date) (unknown) (unknown) [Embedded Image Not Available] (units unknown) (unknown) (unknown) (no date) (unknown) (unknown) [Rx Confirmed 08/01/22] (units unknown) (unknown) (unknown) (no date) (unknown) (unknown) chlordiazepoxide HCl 25 mg capsule See Rx Instructions .Route .COMPLEX #30 caps (units unknown) (unknown) (unknown) (no date) (unknown) (unknown) communication: [place] a activated (units unknown) (unknown) (unknown) (no date) (unknown) (unknown) dexmedeTOMIDine in 0.9 % NaCL 400 mcg in 100 mls @ 2.699 mls/hr 08/08/22 22:48 (units unknown) (unknown) (unknown) (no date) (unknown) (unknown) disulfiram 250 mg tablet 250 mg PO DAILY #30 tabs 08/03/22 [Rx] (units unknown) (unknown) (unknown) (no date) (unknown) (unknown) fluoxetine 10 mg capsule 10 mg PO DAILY 07/13/22 [History Confirmed 08/01/22] (units unknown) (unknown) (unknown) (no date) (unknown) (unknown) for UTI- Initially recieved 1 L LR bolus and BP improved. Ordered another 1 L (units unknown) (unknown) (unknown) (no date) (unknown) (unknown) hydroxyzine HCl 50 m g tablet 50 mg PO DAILY 07/13/22 [History Confirmed (units unknown) (unknown) (unknown) (no date) (unknown) (unknown) [facility] PO (units unknown) (unknown) (unknown) (no date) (unknown) (unknown) monitoring, has had multiple admissions for withdrawal in recent weeks. (units unknown) (unknown) (unknown) (no date) (unknown) (unknown) multivitamin with folic acid 400 mcg tablet (Tab-A-Kael) 1 tab PO DAILY #30 tabs (units unknown) (unknown) (unknown) (no date) (unknown) (unknown) pantoprazole 40 mg tablet,delayed release 40 mg PO 0700 #30 tabs 07/14/22 [Rx (units unknown) (unknown) (unknown) (no date) (unknown) (unknown) possibly component o f sepsis as well (units unknown) (unknown) (unknown) (no date) (unknown) (unknown) quetiapine 300 mg tablet 300 mg PO DAILY 07/13/22 [History Confirmed 08/01/22] (units unknown) (unknown) (unknown) (no date) (unknown) (unknown) setting of acute alcohol intoxication on admission (Etoh level >300) However (units unknown) (unknown) (unknown) (no date) (unknown) (unknown) thiamine mononitrate (vit B1) 100 mg tablet 100 mg PO DAILY #30 tabs 07/14/22 (units unknown) (unknown) (unknown) (no date) (unknown) (unknown) will order procalcitonin (units unknown) (unknown) Result panel [id number] (unknown) (no date) (unknown) (unknown) (no value) (units unknown) (unknown) (unknown) (no date) (unknown) (unknown) (1) Abnormal urinalysis: (units unknown) (unknown) (unknown) (no date) (unknown) (unknown) (2) Alcohol intoxication: (units unknown) (unknown) (unknown) (no date) (unknown) (unknown) (3) Alcohol withdrawal: (units unknown) (unknown) (unknown) (no date) (unknown) (unknown) (past 8 hours): (units unknown) (unknown) (unknown) (no date) (unknown) (unknown) 0.2 MCG/KG/HR (units unknown) (unknown) (unknown) (no date) (unknown) (unknown) [id number] (units unknown) (unknown) (unknown) (no date) (unknown) (unknown) 01:00 08/09/22 (units unknown) (unknown) (unknown) (no date) (unknown) (unknown) 01:06 08/09/22 (units unknown) (unknown) (unknown) (no date) (unknown) (unknown) 01:06 (units unknown) (unknown) (unknown) (no date) (unknown) (unknown) 01:29 08/09/22 (units unknown) (unknown) (unknown) (no date) (unknown) (unknown) 01:29 (units unknown) (unknown) (unknown) (no date) (unknown) (unknown) 02:00 08/09/22 (units unknown) (unknown) (unknown) (no date) (unknown) (unknown) 07/14/22 [Rx Confirmed 08/01/22] (units unknown) (unknown) (unknown) (no date) (unknown) (unknown) 08/01/22] (units unknown) (unknown) (unknown) (no date) (unknown) (unknown) 08/03/22 [Rx] (units unknown) (unknown) (unknown) (no date) (unknown) (unknown) 08/08/22 08/08/22 08/08/22 (units unknown) (unknown) (unknown) (no date) (unknown) (unknown) 08/08/22 08/08/22 08/09/22 (units unknown) (unknown) (unknown) (no date) (unknown) (unknown) 08/09/22 08/09/22 08/09/22 (units unknown) (unknown) (unknown) (no date) (unknown) (unknown) 08/09/22 08/09/22 (units unknown) (unknown) (unknown) (no date) (unknown) (unknown) 08/09/22 04:16 (units unknown) (unknown) (unknown) (no date) (unknown) (unknown) 08/09/22 05:06 (units unknown) (unknown) (unknown) (no date) (unknown) (unknown) 08/09/22 0837 (units unknown) (unknown) (unknown) (no date) (unknown) (unknown) 08/09/22 (units unknown) (unknown) (unknown) (no date) (unknown) (unknown) 03:00 08/09/22 (units unknown) (unknown) (unknown) (no date) (unknown) (unknown) 03:00 (units unknown) (unknown) (unknown) (no date) (unknown) (unknown) 03:02 08/09/22 (units unknown) (unknown) (unknown) (no date) (unknown) (unknown) 03:02 (units unknown) (unknown) (unknown) (no date) (unknown) (unknown) 04:00 08/09/22 (units unknown) (unknown) (unknown) (no date) (unknown) (unknown) 04:16 04:16 04:30 (units unknown) (unknown) (unknown) (no date) (unknown) (unknown) 04:20 08/09/22 (units unknown) (unknown) (unknown) (no date) (unknown) (unknown) 04:20 (units unknown) (unknown) (unknown) (no date) (unknown) (unknown) 04:30 04:30 (units unknown) (unknown) (unknown) (no date) (unknown) (unknown) 05:00 08/09/22 (units unknown) (unknown) (unknown) (no date) (unknown) (unknown) 05:00 (units unknown) (unknown) (unknown) (no date) (unknown) (unknown) 05:02 08/09/22 (units unknown) (unknown) (unknown) (no date) (unknown) (unknown) 05:20 08/09/22 (units unknown) (unknown) (unknown) (no date) (unknown) (unknown) 05:20 (units unknown) (unknown) (unknown) (no date) (unknown) (unknown) 05:34 08/09/22 (units unknown) (unknown) (unknown) (no date) (unknown) (unknown) 05:34 (units unknown) (unknown) (unknown) (no date) (unknown) (unknown) 06:00 08/09/22 (units unknown) (unknown) (unknown) (no date) (unknown) (unknown) 06:24 08/09/22 (units unknown) (unknown) (unknown) (no date) (unknown) (unknown) 06:24 (units unknown) (unknown) (unknown) (no date) (unknown) (unknown) 07:00 08/09/22 (units unknown) (unknown) (unknown) (no date) (unknown) (unknown) 07:00 (units unknown) (unknown) (unknown) (no date) (unknown) (unknown) 07:35 (units unknown) (unknown) (unknown) (no date) (unknown) (unknown) 21:00 21:00 21:00 (units unknown) (unknown) (unknown) (no date) (unknown) (unknown) 21:00 22:30 04:16 (units unknown) (unknown) (unknown) (no date) (unknown) (unknown) ALT 51 H (units unknown) (unknown) (unknown) (no date) (unknown) (unknown) ALT 64 H (units unknown) (unknown) (unknown) (no date) (unknown) (unknown) ALT (units unknown) (unknown) (unknown) (no date) (unknown) (unknown) AST 288 H (units unknown) (unknown) (unknown) (no date) (unknown) (unknown) AST 424 H (units unknown) (unknown) (unknown) (no date) (unknown) (unknown) AST (units unknown) (unknown) (unknown) (no date) (unknown) (unknown) Age/Sex: 31 / F (units unknown) (unknown) (unknown) (no date) (unknown) (unknown) Albumin 3.6 (units unknown) (unknown) (unknown) (no date) (unknown) (unknown) Albumin 4.4 (units unknown) (unknown) (unknown) (no date) (unknown) (unknown) Albumin (units unknown) (unknown) (unknown) (no date) (unknown) (unknown) Albumin/Globulin Ratio 1.3 (units unknown) (unknown) (unknown) (no date) (unknown) (unknown) Albumin/Globulin Ratio 1.5 (units unknown) (unknown) (unknown) (no date) (unknown) (unknown) Albumin/Globulin Ratio (units unknown) (unknown) (unknown) (no date) (unknown) (unknown) Alcohol Withdrawal (units unknown) (unknown) (unknown) (no date) (unknown) (unknown) Alkaline Phosphatase 59 (units unknown) (unknown) (unknown) (no date) (unknown) (unknown) Alkaline Phosphatase 71 (units unknown) (unknown) (unknown) (no date) (unknown) (unknown) Alkaline Phosphatase (units unknown) (unknown) (unknown) (no date) (unknown) (unknown) Assessment + Plan narrative: (units unknown) (unknown) (unknown) (no date) (unknown) (unknown) Assessment + Plan (units unknown) (unknown) (unknown) (no date) (unknown) (unknown) Assessment and plan (units unknown) (unknown) (unknown) (no date) (unknown) (unknown) BUN 7 (units unknown) (unknown) (unknown) (no date) (unknown) (unknown) BUN 8 (units unknown) (unknown) (unknown) (no date) (unknown) (unknown) BUN (units unknown) (unknown) (unknown) (no date) (unknown) (unknown) BUN/Creatinine Ratio 8.9 (units unknown) (unknown) (unknown) (no date) (unknown) (unknown) BUN/Creatinine Ratio 9.2 (units unknown) (unknown) (unknown) (no date) (unknown) (unknown) BUN/Creatinine Ratio (units unknown) (unknown) (unknown) (no date) (unknown) (unknown) Baso # (Auto) 100 (units unknown) (unknown) (unknown) (no date) (unknown) (unknown) Baso # (Auto) (units unknown) (unknown) (unknown) (no date) (unknown) (unknown) Baso % (Auto) 1.9 (units unknown) (unknown) (unknown) (no date) (unknown) (unknown) Baso % (Auto) 2.5 H (units unknown) (unknown) (unknown) (no date) (unknown) (unknown) Baso % (Auto) (units unknown) (unknown) (unknown) (no date) (unknown) (unknown) Blood Pressure 73/40 L 75/39 L (units unknown) (unknown) (unknown) (no date) (unknown) (unknown) Blood Pressure 74/40 L (units unknown) (unknown) (unknown) (no date) (unknown) (unknown) Blood Pressure 77/42 L 80/45 L (units unknown) (unknown) (unknown) (no date) (unknown) (unknown) Blood Pressure 77/47 L (units unknown) (unknown) (unknown) (no date) (unknown) (unknown) Blood Pressure 78/43 L (units unknown) (unknown) (unknown) (no date) (unknown) (unknown) Blood Pressure 78/48 L (units unknown) (unknown) (unknown) (no date) (unknown) (unknown) Blood Pressure 80/44 L 79/43 L (units unknown) (unknown) (unknown) (no date) (unknown) (unknown) Blood Pressure 82/44 L 71/42 L (units unknown) (unknown) (unknown) (no date) (unknown) (unknown) Blood Pressure 86/53 L 83/50 L (units unknown) (unknown) (unknown) (no date) (unknown) (unknown) CIWA protocol with ativan (units unknown) (unknown) (unknown) (no date) (unknown) (unknown) CIWAPRN PRN Administration (units unknown) (unknown) (unknown) (no date) (unknown) (unknown) Calcium 7.7 L (units unknown) (unknown) (unknown) (no date) (unknown) (unknown) Calcium 8.4 (units unknown) (unknown) (unknown) (no date) (unknown) (unknown) Calcium (units unknown) (unknown) (unknown) (no date) (unknown) (unknown) Carbon Dioxide 30 (units unknown) (unknown) (unknown) (no date) (unknown) (unknown) Carbon Dioxide 33 H (units unknown) (unknown) (unknown) (no date) (unknown) (unknown) Carbon Dioxide (units unknown) (unknown) (unknown) (no date) (unknown) (unknown) Cardio (units unknown) (unknown) (unknown) (no date) (unknown) (unknown) Ceftriaxone Sodium 1,000 mg/ 100 mls @ 200 mls/hr 08/09/22 07:00 08/09/22 (units unknown) (unknown) (unknown) (no date) (unknown) (unknown) Check LA (units unknown) (unknown) (unknown) (no date) (unknown) (unknown) Chlordiazepoxide 25 Mg Capsule PO 50 mg (units unknown) (unknown) (unknown) (no date) (unknown) (unknown) Chlordiazepoxide HCl 50 mg 08/09/22 00:00 08/09/22 06:12 (units unknown) (unknown) (unknown) (no date) (unknown) (unknown) Chloride 104 (units unknown) (unknown) (unknown) (no date) (unknown) (unknown) Chloride 107 (units unknown) (unknown) (unknown) (no date) (unknown) (unknown) Chloride (units unknown) (unknown) (unknown) (no date) (unknown) (unknown) Confirmed 08/01/22] (units unknown) (unknown) (unknown) (no date) (unknown) (unknown) Conjugated Bilirubin 0.0 (units unknown) (unknown) (unknown) (no date) (unknown) (unknown) Conjugated Bilirubin (units unknown) (unknown) (unknown) (no date) (unknown) (unknown) Consent obtained for tele-bioinformatics technician care: Yes (units unknown) (unknown) (unknown) (no date) (unknown) (unknown) Continue IV fluids, MVI, Thiamine, folate (units unknown) (unknown) (unknown) (no date) (unknown) (unknown) Creatinine 0.76 (units unknown) (unknown) (unknown) (no date) (unknown) (unknown) Creatinine 0.90 (units unknown) (unknown) (unknown) (no date) (unknown) (unknown) Creatinine (units unknown) (unknown) (unknown) (no date) (unknown) (unknown) Culture pending (units unknown) (unknown) (unknown) (no date) (unknown) (unknown) Current Medications (units unknown) (unknown) (unknown) (no date) (unknown) (unknown) : 1990 Acct:[id number] (units unknown) (unknown) (unknown) (no date) (unknown) (unknown) Date of Service: 08/08/22 (units unknown) (unknown) (unknown) (no date) (unknown) (unknown) Deep Vein Thrombosis/Pulmonary Embolism Present on Admission: No (units unknown) (unknown) (unknown) (no date) (unknown) (unknown) ETOH level high on admission (units unknown) (unknown) (unknown) (no date) (unknown) (unknown) Eos # (Auto) 0 (units unknown) (unknown) (unknown) (no date) (unknown) (unknown) Eos # (Auto) (units unknown) (unknown) (unknown) (no date) (unknown) (unknown) Eos % (Auto) 0.7 L (units unknown) (unknown) (unknown) (no date) (unknown) (unknown) Eos % (Auto) 0.8 L (units unknown) (unknown) (unknown) (no date) (unknown) (unknown) Eos % (Auto) (units unknown) (unknown) (unknown) (no date) (unknown) (unknown) Estimated GFR > 60 (units unknown) (unknown) (unknown) (no date) (unknown) (unknown) Estimated GFR (units unknown) (unknown) (unknown) (no date) (unknown) (unknown) Ethyl Alcohol 393 H (units unknown) (unknown) (unknown) (no date) (unknown) (unknown) Ethyl Alcohol (units unknown) (unknown) (unknown) (no date) (unknown) (unknown) Exam Narrative: (units unknown) (unknown) (unknown) (no date) (unknown) (unknown) Exam (units unknown) (unknown) (unknown) (no date) (unknown) (unknown) Generic Name Dose Route Start Last Admin (units unknown) (unknown) (unknown) (no date) (unknown) (unknown) Globulin 2.4 (units unknown) (unknown) (unknown) (no date) (unknown) (unknown) Globulin 3.3 (units unknown) (unknown) (unknown) (no date) (unknown) (unknown) Globulin (units unknown) (unknown) (unknown) (no date) (unknown) (unknown) Glucose 84 (units unknown) (unknown) (unknown) (no date) (unknown) (unknown) Glucose 92 (units unknown) (unknown) (unknown) (no date) (unknown) (unknown) Glucose (units unknown) (unknown) (unknown) (no date) (unknown) (unknown) Hct 31.4 L (units unknown) (unknown) (unknown) (no date) (unknown) (unknown) Hct 37.0 (units unknown) (unknown) (unknown) (no date) (unknown) (unknown) Hct (units unknown) (unknown) (unknown) (no date) (unknown) (unknown) Hgb 10.1 L (units unknown) (unknown) (unknown) (no date) (unknown) (unknown) Hgb 11.9 L (units unknown) (unknown) (unknown) (no date) (unknown) (unknown) Hgb (units unknown) (unknown) (unknown) (no date) (unknown) (unknown) Home Medications (units unknown) (unknown) (unknown) (no date) (unknown) (unknown) IF CAMER[place] ACTIVATED, patient seen via real-time interactive audiovisual (units unknown) (unknown) (unknown) (no date) (unknown) (unknown) Interval history: (units unknown) (unknown) (unknown) (no date) (unknown) (unknown) [address] [address] (units unknown) (unknown) (unknown) (no date) (unknown) (unknown) Laboratory Results - last 24 hr (units unknown) (unknown) (unknown) (no date) (unknown) (unknown) Labs (units unknown) (unknown) (unknown) (no date) (unknown) (unknown) Labs: (units unknown) (unknown) (unknown) (no date) (unknown) (unknown) Lipase 408 H (units unknown) (unknown) (unknown) (no date) (unknown) (unknown) Lipase (units unknown) (unknown) (unknown) (no date) (unknown) (unknown) Lorazepam 0 mg 08/08/22 22:48 08/08/22 23:00 (units unknown) (unknown) (unknown) (no date) (unknown) (unknown) Lorazepam 2 Mg/Ml In j IV 2 mg (units unknown) (unknown) (unknown) (no date) (unknown) (unknown) Lymph # (Auto) 2600 (units unknown) (unknown) (unknown) (no date) (unknown) (unknown) Lymph # (Auto) 2800 (units unknown) (unknown) (unknown) (no date) (unknown) (unknown) Lymph # (Auto) (units unknown) (unknown) (unknown) (no date) (unknown) (unknown) Lymph % (Auto) 51.5 H (units unknown) (unknown) (unknown) (no date) (unknown) (unknown) Lymph % (Auto) 54.2 H (units unknown) (unknown) (unknown) (no date) (unknown) (unknown) Lymph % (Auto) (units unknown) (unknown) (unknown) (no date) (unknown) (unknown) MAP 65, receiving bolus (units unknown) (unknown) (unknown) (no date) (unknown) (unknown) MCH 25.4 L (units unknown) (unknown) (unknown) (no date) (unknown) (unknown) MCH 25.7 L (units unknown) (unknown) (unknown) (no date) (unknown) (unknown) MCH (units unknown) (unknown) (unknown) (no date) (unknown) (unknown) MCHC 32.1 (units unknown) (unknown) (unknown) (no date) (unknown) (unknown) MCHC 32.2 (units unknown) (unknown) (unknown) (no date) (unknown) (unknown) MCHC (units unknown) (unknown) (unknown) (no date) (unknown) (unknown) MCV 79.0 L (units unknown) (unknown) (unknown) (no date) (unknown) (unknown) MCV 80.2 (units unknown) (unknown) (unknown) (no date) (unknown) (unknown) MCV (units unknown) (unknown) (unknown) (no date) (unknown) (unknown) Magnesium 2.2 (units unknown) (unknown) (unknown) (no date) (unknown) (unknown) Magnesium (units unknown) (unknown) (unknown) (no date) (unknown) (unknown) Medications: (units unknown) (unknown) (unknown) (no date) (unknown) (unknown) [place] # (Auto) 300 (units unknown) (unknown) (unknown) (no date) (unknown) (unknown) [place] # (Auto) 400 (units unknown) (unknown) (unknown) (no date) (unknown) (unknown) [place] # (Auto) (units unknown) (unknown) (unknown) (no date) (unknown) (unknown) [place] % (Auto) 6.5 (units unknown) (unknown) (unknown) (no date) (unknown) (unknown) [place] % (Auto) 8.6 (units unknown) (unknown) (unknown) (no date) (unknown) (unknown) [place] % (Auto) (units unknown) (unknown) (unknown) (no date) (unknown) (unknown) Narrative (units unknown) (unknown) (unknown) (no date) (unknown) (unknown) Nausea And Vomiting (units unknown) (unknown) (unknown) (no date) (unknown) (unknown) Neuro (units unknown) (unknown) (unknown) (no date) (unknown) (unknown) Neut # (Auto) 1900 (units unknown) (unknown) (unknown) (no date) (unknown) (unknown) Neut # (Auto) (units unknown) (unknown) (unknown) (no date) (unknown) (unknown) Neut % (Auto) 36.6 L (units unknown) (unknown) (unknown) (no date) (unknown) (unknown) Neut % (Auto) 36.7 L (units unknown) (unknown) (unknown) (no date) (unknown) (unknown) Neut % (Auto) (units unknown) (unknown) (unknown) (no date) (unknown) (unknown) No distress, sleepin g in bed- on room air (units unknown) (unknown) (unknown) (no date) (unknown) (unknown) Objective (units unknown) (unknown) (unknown) (no date) (unknown) (unknown) Ondansetron 4 Mg/2 M l Inj IV 4 mg (units unknown) (unknown) (unknown) (no date) (unknown) (unknown) Ondansetron HCl 4 mg 08/08/22 22:48 08/08/22 23:09 (units unknown) (unknown) (unknown) (no date) (unknown) (unknown) 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: Bedside RN (units unknown) (unknown) (unknown) (no date) (unknown) (unknown) Other: (units unknown) (unknown) (unknown) (no date) (unknown) (unknown) Oxygen Delivery Method Room Air (units unknown) (unknown) (unknown) (no date) (unknown) (unknown) Patient Location: ICU (units unknown) (unknown) (unknown) (no date) (unknown) (unknown) Patient admitted for alcohol withdrawal/detox. She is s/p phenobarb dose in ED. (units unknown) (unknown) (unknown) (no date) (unknown) (unknown) Patient has been mildly hypotensive, but fluid responsive, Likely dehydration in (units unknown) (unknown) (unknown) (no date) (unknown) (unknown) Patient: Sarah Connors MR#: M (units unknown) (unknown) (unknown) (no date) (unknown) (unknown) Plan: (units unknown) (unknown) (unknown) (no date) (unknown) (unknown) Plt Count 332 (units unknown) (unknown) (unknown) (no date) (unknown) (unknown) Plt Count 396 (units unknown) (unknown) (unknown) (no date) (unknown) (unknown) Plt Count (units unknown) (unknown) (unknown) (no date) (unknown) (unknown) Potassium 3.5 (units unknown) (unknown) (unknown) (no date) (unknown) (unknown) Potassium 3.6 (units unknown) (unknown) (unknown) (no date) (unknown) (unknown) Potassium (units unknown) (unknown) (unknown) (no date) (unknown) (unknown) Precedex IV 0 mcg/kg/hr (units unknown) (unknown) (unknown) (no date) (unknown) (unknown) Precedex gtt currently off, will continue to monitor need for precedex gtt (units unknown) (unknown) (unknown) (no date) (unknown) (unknown) Precedex gtt turned off at 5 am- She was able to take her PO librium (units unknown) (unknown) (unknown) (no date) (unknown) (unknown) Protocol (units unknown) (unknown) (unknown) (no date) (unknown) (unknown) Provider location (State): [place] (units unknown) (unknown) (unknown) (no date) (unknown) (unknown) Provider: Shameka Prince MD (units unknown) (unknown) (unknown) (no date) (unknown) (unknown) Pulse Oximetry 95 95 (units unknown) (unknown) (unknown) (no date) (unknown) (unknown) Pulse Oximetry 95 96 (units unknown) (unknown) (unknown) (no date) (unknown) (unknown) Pulse Oximetry 95 (units unknown) (unknown) (unknown) (no date) (unknown) (unknown) Pulse Oximetry 96 (units unknown) (unknown) (unknown) (no date) (unknown) (unknown) Pulse Oximetry 97 96 (units unknown) (unknown) (unknown) (no date) (unknown) (unknown) Pulse Oximetry 97 (units unknown) (unknown) (unknown) (no date) (unknown) (unknown) Pulse Oximetry 99 99 (units unknown) (unknown) (unknown) (no date) (unknown) (unknown) Pulse Rate 69 72 (units unknown) (unknown) (unknown) (no date) (unknown) (unknown) Pulse Rate 71 (units unknown) (unknown) (unknown) (no date) (unknown) (unknown) Pulse Rate 72 (units unknown) (unknown) (unknown) (no date) (unknown) (unknown) Pulse Rate 75 69 (units unknown) (unknown) (unknown) (no date) (unknown) (unknown) Pulse Rate 75 75 (units unknown) (unknown) (unknown) (no date) (unknown) (unknown) Pulse Rate 75 78 (units unknown) (unknown) (unknown) (no date) (unknown) (unknown) Pulse Rate 75 (units unknown) (unknown) (unknown) (no date) (unknown) (unknown) Pulse Rate 76 71 (units unknown) (unknown) (unknown) (no date) (unknown) (unknown) Pulse Rate 79 76 (units unknown) (unknown) (unknown) (no date) (unknown) (unknown) Q24H SANDY Administration (units unknown) (unknown) (unknown) (no date) (unknown) (unknown) Q6HR SANDY Administration (units unknown) (unknown) (unknown) (no date) (unknown) (unknown) Q8HR PRN Administration (units unknown) (unknown) (unknown) (no date) (unknown) (unknown) Quality TeleICU (units unknown) (unknown) (unknown) (no date) (unknown) (unknown) R this am after BP 80's/40's (units unknown) (unknown) (unknown) (no date) (unknown) (unknown) RBC 3.98 L (units unknown) (unknown) (unknown) (no date) (unknown) (unknown) RBC 4.61 (units unknown) (unknown) (unknown) (no date) (unknown) (unknown) RBC (units unknown) (unknown) (unknown) (no date) (unknown) (unknown) RDW 19.5 H (units unknown) (unknown) (unknown) (no date) (unknown) (unknown) RDW 19.7 H (units unknown) (unknown) (unknown) (no date) (unknown) (unknown) RDW (units unknown) (unknown) (unknown) (no date) (unknown) (unknown) Respiratory Rate 14 16 (units unknown) (unknown) (unknown) (no date) (unknown) (unknown) Respiratory Rate 16 16 (units unknown) (unknown) (unknown) (no date) (unknown) (unknown) Respiratory Rate 18 19 (units unknown) (unknown) (unknown) (no date) (unknown) (unknown) Respiratory Rate 18 (units unknown) (unknown) (unknown) (no date) (unknown) (unknown) Respiratory Rate 19 (units unknown) (unknown) (unknown) (no date) (unknown) (unknown) Respiratory Rate 21 20 (units unknown) (unknown) (unknown) (no date) (unknown) (unknown) Respiratory Rate 27 H (units unknown) (unknown) (unknown) (no date) (unknown) (unknown) Respiratory Rate 34 H 23 (units unknown) (unknown) (unknown) (no date) (unknown) (unknown) Respiratory Rate 37 H 16 (units unknown) (unknown) (unknown) (no date) (unknown) (unknown) Respiratory Rate 37 H (units unknown) (unknown) (unknown) (no date) (unknown) (unknown) SARS-CoV-2 (PCR) Negative (units unknown) (unknown) (unknown) (no date) (unknown) (unknown) SARS-CoV-2 (PCR) (units unknown) (unknown) (unknown) (no date) (unknown) (unknown) SCD's, SQ Heparin fo r DVT ppx (units unknown) (unknown) (unknown) (no date) (unknown) (unknown) She remains mildly hypotensive and urine is estefany in color, she is being treated (units unknown) (unknown) (unknown) (no date) (unknown) (unknown) Signed By:<Electronically signed by Uyen Prince MD> (units unknown) (unknown) (unknown) (no date) (unknown) (unknown) Sodium 145 (units unknown) (unknown) (unknown) (no date) (unknown) (unknown) Sodium 148 H D (units unknown) (unknown) (unknown) (no date) (unknown) (unknown) Sodium Chloride IV 08/12/22 06:59 200 mls/hr (units unknown) (unknown) (unknown) (no date) (unknown) (unknown) Sodium (units unknown) (unknown) (unknown) (no date) (unknown) (unknown) Started on ceftriaxone (units unknown) (unknown) (unknown) (no date) (unknown) (unknown) Status: Acute (units unknown) (unknown) (unknown) (no date) (unknown) (unknown) Subjective (units unknown) (unknown) (unknown) (no date) (unknown) (unknown) TITRATE SANDY 0 mls/hr (units unknown) (unknown) (unknown) (no date) (unknown) (unknown) Tele NSR rate 72 (units unknown) (unknown) (unknown) (no date) (unknown) (unknown) Teleintensivist Progress Note (units unknown) (unknown) (unknown) (no date) (unknown) (unknown) Temperature 98.6 F (units unknown) (unknown) (unknown) (no date) (unknown) (unknown) Temperature (units unknown) (unknown) (unknown) (no date) (unknown) (unknown) Time Spent With Patient (units unknown) (unknown) (unknown) (no date) (unknown) (unknown) Time with patient: less than 30 minutes (units unknown) (unknown) (unknown) (no date) (unknown) (unknown) Titration (units unknown) (unknown) (unknown) (no date) (unknown) (unknown) Total Bilirubin 0.3 (units unknown) (unknown) (unknown) (no date) (unknown) (unknown) Total Bilirubin 0.4 (units unknown) (unknown) (unknown) (no date) (unknown) (unknown) Total Bilirubin (units unknown) (unknown) (unknown) (no date) (unknown) (unknown) Total Protein 6.0 L (units unknown) (unknown) (unknown) (no date) (unknown) (unknown) Total Protein 7.7 (units unknown) (unknown) (unknown) (no date) (unknown) (unknown) Total Protein (units unknown) (unknown) (unknown) (no date) (unknown) (unknown) Trade Name Freq PRN Reason Stop Dose Admin (units unknown) (unknown) (unknown) (no date) (unknown) (unknown) U Benzodiazepines Scrn Positive H (units unknown) (unknown) (unknown) (no date) (unknown) (unknown) U Benzodiazepines Scrn (units unknown) (unknown) (unknown) (no date) (unknown) (unknown) U Marijuana (THC) Screen Negative (units unknown) (unknown) (unknown) (no date) (unknown) (unknown) U Marijuana (THC) Screen (units unknown) (unknown) (unknown) (no date) (unknown) (unknown) U Methamphetamines Scrn Negative (units unknown) (unknown) (unknown) (no date) (unknown) (unknown) U Methamphetamines Scrn (units unknown) (unknown) (unknown) (no date) (unknown) (unknown) U Opiates 300ng/mL cut Negative (units unknown) (unknown) (unknown) (no date) (unknown) (unknown) U Opiates 300ng/mL cut (units unknown) (unknown) (unknown) (no date) (unknown) (unknown) U Tricyclic Antidepress Positive H (units unknown) (unknown) (unknown) (no date) (unknown) (unknown) U Tricyclic Antidepress (units unknown) (unknown) (unknown) (no date) (unknown) (unknown) UA +, urine estefany colored c/f UTI (units unknown) (unknown) (unknown) (no date) (unknown) (unknown) Unconjugated Bilirubin 0.0 (units unknown) (unknown) (unknown) (no date) (unknown) (unknown) Unconjugated Bilirubin (units unknown) (unknown) (unknown) (no date) (unknown) (unknown) Ur Amphetamines Screen Negative (units unknown) (unknown) (unknown) (no date) (unknown) (unknown) Ur Amphetamines Screen (units unknown) (unknown) (unknown) (no date) (unknown) (unknown) Ur Barbiturates Screen Positive H (units unknown) (unknown) (unknown) (no date) (unknown) (unknown) Ur Barbiturates Screen (units unknown) (unknown) (unknown) (no date) (unknown) (unknown) Ur Culture Indicated ? Specimen cultured (units unknown) (unknown) (unknown) (no date) (unknown) (unknown) Ur Culture Indicated? (units unknown) (unknown) (unknown) (no date) (unknown) (unknown) Ur Leukocyte Esteras e 1+ H (units unknown) (unknown) (unknown) (no date) (unknown) (unknown) Ur Leukocyte Esterase (units unknown) (unknown) (unknown) (no date) (unknown) (unknown) Ur MDMA Scrn (Ecstasy) Negative (units unknown) (unknown) (unknown) (no date) (unknown) (unknown) Ur MDMA Scrn (Ecstasy) (units unknown) (unknown) (unknown) (no date) (unknown) (unknown) Ur Oxycodone Screen Negative (units unknown) (unknown) (unknown) (no date) (unknown) (unknown) Ur Oxycodone Screen (units unknown) (unknown) (unknown) (no date) (unknown) (unknown) Ur Phencyclidine Scr n Negative (units unknown) (unknown) (unknown) (no date) (unknown) (unknown) Ur Phencyclidine Scrn (units unknown) (unknown) (unknown) (no date) (unknown) (unknown) Ur Specific [place] 1.015 (units unknown) (unknown) (unknown) (no date) (unknown) (unknown) Ur Specific [place] (units unknown) (unknown) (unknown) (no date) (unknown) (unknown) Urine Appearance Clear (units unknown) (unknown) (unknown) (no date) (unknown) (unknown) Urine Appearance (units unknown) (unknown) (unknown) (no date) (unknown) (unknown) Urine Bacteria Many (>30) H (units unknown) (unknown) (unknown) (no date) (unknown) (unknown) Urine Bacteria (units unknown) (unknown) (unknown) (no date) (unknown) (unknown) Urine Bilirubin Negative (units unknown) (unknown) (unknown) (no date) (unknown) (unknown) Urine Bilirubin (units unknown) (unknown) (unknown) (no date) (unknown) (unknown) Urine Cocaine Screen Negative (units unknown) (unknown) (unknown) (no date) (unknown) (unknown) Urine Cocaine Screen (units unknown) (unknown) (unknown) (no date) (unknown) (unknown) Urine Color Yellow (units unknown) (unknown) (unknown) (no date) (unknown) (unknown) Urine Color (units unknown) (unknown) (unknown) (no date) (unknown) (unknown) Urine Glucose (UA) Negative (units unknown) (unknown) (unknown) (no date) (unknown) (unknown) Urine Glucose (UA) (units unknown) (unknown) (unknown) (no date) (unknown) (unknown) Urine Ketones Negative (units unknown) (unknown) (unknown) (no date) (unknown) (unknown) Urine Ketones (units unknown) (unknown) (unknown) (no date) (unknown) (unknown) Urine Methadone Screen Negative (units unknown) (unknown) (unknown) (no date) (unknown) (unknown) Urine Methadone Screen (units unknown) (unknown) (unknown) (no date) (unknown) (unknown) Urine Nitrate Positive H (units unknown) (unknown) (unknown) (no date) (unknown) (unknown) Urine Nitrate (units unknown) (unknown) (unknown) (no date) (unknown) (unknown) Urine Occult Blood Negative (units unknown) (unknown) (unknown) (no date) (unknown) (unknown) Urine Occult Blood (units unknown) (unknown) (unknown) (no date) (unknown) (unknown) Urine Test Negative (units unknown) (unknown) (unknown) (no date) (unknown) (unknown) Urine Test (units unknown) (unknown) (unknown) (no date) (unknown) (unknown) Urine Protein Negative (units unknown) (unknown) (unknown) (no date) (unknown) (unknown) Urine Protein (units unknown) (unknown) (unknown) (no date) (unknown) (unknown) Urine RBC None seen (units unknown) (unknown) (unknown) (no date) (unknown) (unknown) Urine RBC (units unknown) (unknown) (unknown) (no date) (unknown) (unknown) Urine Urobilinogen 0.2 (units unknown) (unknown) (unknown) (no date) (unknown) (unknown) Urine Urobilinogen (units unknown) (unknown) (unknown) (no date) (unknown) (unknown) Urine WBC 10-30/hpf H (units unknown) (unknown) (unknown) (no date) (unknown) (unknown) Urine WBC (units unknown) (unknown) (unknown) (no date) (unknown) (unknown) Urine pH 6.0 (units unknown) (unknown) (unknown) (no date) (unknown) (unknown) Urine pH (units unknown) (unknown) (unknown) (no date) (unknown) (unknown) VTE (units unknown) (unknown) (unknown) (no date) (unknown) (unknown) Visit Medications (administered) (units unknown) (unknown) (unknown) (no date) (unknown) (unknown) Vital Signs (units unknown) (unknown) (unknown) (no date) (unknown) (unknown) WBC 5.1 (units unknown) (unknown) (unknown) (no date) (unknown) (unknown) WBC 5.2 (units unknown) (unknown) (unknown) (no date) (unknown) (unknown) WBC (units unknown) (unknown) (unknown) (no date) (unknown) (unknown) When more awake, reconcile home meds and restart (units unknown) (unknown) (unknown) (no date) (unknown) (unknown) Will continue to monitor volume responsiveness and potential need for pressors (units unknown) (unknown) (unknown) (no date) (unknown) (unknown) Will restart home PPI (units unknown) (unknown) (unknown) (no date) (unknown) (unknown) Would keep in ICU today for potential worsening of withdrawal sx and BP (units unknown) (unknown) (unknown) (no date) (unknown) (unknown) [Embedded Image Not Available] (units unknown) (unknown) (unknown) (no date) (unknown) (unknown) [Rx Confirmed 08/01/22] (units unknown) (unknown) (unknown) (no date) (unknown) (unknown) chlordiazepoxide HCl 25 mg capsule See Rx Instructions .Route .COMPLEX #30 caps (units unknown) (unknown) (unknown) (no date) (unknown) (unknown) communication: Elif guerra activated (units unknown) (unknown) (unknown) (no date) (unknown) (unknown) dexmedeTOMIDine in 0.9 % NaCL 400 mcg in 100 mls @ 2.699 mls/hr 08/08/22 22:48 (units unknown) (unknown) (unknown) (no date) (unknown) (unknown) disulfiram 250 mg tablet 250 mg PO DAILY #30 tabs 08/03/22 [Rx] (units unknown) (unknown) (unknown) (no date) (unknown) (unknown) fluoxetine 10 mg capsule 10 mg PO DAILY 07/13/22 [History Confirmed 08/01/22] (units unknown) (unknown) (unknown) (no date) (unknown) (unknown) for UTI- Initially recieved 1 L LR bolus and BP improved. Ordered another 1 L L (units unknown) (unknown) (unknown) (no date) (unknown) (unknown) hydroxyzine HCl 50 m g tablet 50 mg PO DAILY 07/13/22 [History Confirmed (units unknown) (unknown) (unknown) (no date) (unknown) (unknown) librium PO (units unknown) (unknown) (unknown) (no date) (unknown) (unknown) monitoring, has had multiple admissions for withdrawal in recent weeks. (units unknown) (unknown) (unknown) (no date) (unknown) (unknown) multivitamin with folic acid 400 mcg tablet (Tab-A-Kael) 1 tab PO DAILY #30 tabs (units unknown) (unknown) (unknown) (no date) (unknown) (unknown) pantoprazole 40 mg tablet,delayed release 40 mg PO 0700 #30 tabs 07/14/22 [Rx (units unknown) (unknown) (unknown) (no date) (unknown) (unknown) possibly component o f sepsis as well (units unknown) (unknown) (unknown) (no date) (unknown) (unknown) quetiapine 300 mg tablet 300 mg PO DAILY 07/13/22 [History Confirmed 08/01/22] (units unknown) (unknown) (unknown) (no date) (unknown) (unknown) setting of acute alcohol intoxication on admission (Etoh level >300) However (units unknown) (unknown) (unknown) (no date) (unknown) (unknown) sleeping (units unknown) (unknown) (unknown) (no date) (unknown) (unknown) thiamine mononitrate (vit B1) 100 mg tablet 100 mg PO DAILY #30 tabs 07/14/22 (units unknown) (unknown) (unknown) (no date) (unknown) (unknown) will order procalcitonin (units unknown) (unknown) Result panel 2304 (unknown) (no date) (unknown) (unknown) 2.9 mmol/l (unknown) Result panel 2305 (unknown) (no date) (unknown) (unknown) < 0.03 ng/ml (unknown) (unknown) (no date) (unknown) (unknown) < 0.03 ng/ml (unknown) Result panel 2306 (unknown) (no date) (unknown) (unknown) (no value) (units unknown) (unknown) (unknown) (no date) (unknown) (unknown) (past 8 hours): (units unknown) (unknown) (unknown) (no date) (unknown) (unknown) -[employer]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 (units unknown) (unknown) (unknown) (no date) (unknown) (unknown) -UA with pyuria (units unknown) (unknown) (unknown) (no date) (unknown) (unknown) -continue PPI (units unknown) (unknown) (unknown) (no date) (unknown) (unknown) -continue ciwa protocol, with ativan, librium 50mg q6 (units unknown) (unknown) (unknown) (no date) (unknown) (unknown) -continue prozac (units unknown) (unknown) (unknown) (no date) (unknown) (unknown) -continue to trend (units unknown) (unknown) (unknown) (no date) (unknown) (unknown) -each time she has refused rehab (units unknown) (unknown) (unknown) (no date) (unknown) (unknown) -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 (units unknown) (unknown) (unknown) (no date) (unknown) (unknown) -likely secondary to inadequate PO intake due to alcoholism (units unknown) (unknown) (unknown) (no date) (unknown) (unknown) -multiple admissions and hospital visits for alcohol withdrawal within the last (units unknown) (unknown) (unknown) (no date) (unknown) (unknown) -now off precedex (units unknown) (unknown) (unknown) (no date) (unknown) (unknown) -ordered for high dose thiamine for prevention/treatment of wernicke's (units unknown) (unknown) (unknown) (no date) (unknown) (unknown) -per ED she is requesting detox after drinking heavily after discharge (units unknown) (unknown) (unknown) (no date) (unknown) (unknown) -per ED she was hallucinating and agitated on arrival, received phenobarbital (units unknown) (unknown) (unknown) (no date) (unknown) (unknown) -rocephin x3 days (units unknown) (unknown) (unknown) (no date) (unknown) (unknown) -she was just discharged 5 days ago, refusing rehab (units unknown) (unknown) (unknown) (no date) (unknown) (unknown) -suspect secondary t o alcohol withdrawal and phenobarbital and treat as above (units unknown) (unknown) (unknown) (no date) (unknown) (unknown) -trend daily (units unknown) (unknown) (unknown) (no date) (unknown) (unknown) [id number] (units unknown) (unknown) (unknown) (no date) (unknown) (unknown) 01:00 08/09/22 (units unknown) (unknown) (unknown) (no date) (unknown) (unknown) 01:06 08/09/22 (units unknown) (unknown) (unknown) (no date) (unknown) (unknown) 01:06 (units unknown) (unknown) (unknown) (no date) (unknown) (unknown) 01:29 08/09/22 (units unknown) (unknown) (unknown) (no date) (unknown) (unknown) 01: (units unknown) (unknown) (unknown) (no date) (unknown) (unknown) 02:00 08/09/22 (units unknown) (unknown) (unknown) (no date) (unknown) (unknown) 08/08/22 08/08/22 08/08/22 (units unknown) (unknown) (unknown) (no date) (unknown) (unknown) 08/08/22 08/08/22 08/09/22 (units unknown) (unknown) (unknown) (no date) (unknown) (unknown) 08/09/22 08/09/22 08/09/22 (units unknown) (unknown) (unknown) (no date) (unknown) (unknown) 08/09/22 08/09/22 (units unknown) (unknown) (unknown) (no date) (unknown) (unknown) 08/09/22 04:16 (units unknown) (unknown) (unknown) (no date) (unknown) (unknown) 08/09/22 1035 (units unknown) (unknown) (unknown) (no date) (unknown) (unknown) 08/09/22 (units unknown) (unknown) (unknown) (no date) (unknown) (unknown) 03:00 08/09/22 (units unknown) (unknown) (unknown) (no date) (unknown) (unknown) 03:00 (units unknown) (unknown) (unknown) (no date) (unknown) (unknown) 03:02 08/09/22 (units unknown) (unknown) (unknown) (no date) (unknown) (unknown) 03:02 (units unknown) (unknown) (unknown) (no date) (unknown) (unknown) 04:00 08/09/22 (units unknown) (unknown) (unknown) (no date) (unknown) (unknown) 04:16 04:16 04:30 (units unknown) (unknown) (unknown) (no date) (unknown) (unknown) 04:20 08/09/22 (units unknown) (unknown) (unknown) (no date) (unknown) (unknown) 04:20 (units unknown) (unknown) (unknown) (no date) (unknown) (unknown) 04:30 04:30 (units unknown) (unknown) (unknown) (no date) (unknown) (unknown) 05:00 08/09/22 (units unknown) (unknown) (unknown) (no date) (unknown) (unknown) 05:00 (units unknown) (unknown) (unknown) (no date) (unknown) (unknown) 05:02 08/09/22 (units unknown) (unknown) (unknown) (no date) (unknown) (unknown) 05:20 08/09/22 (units unknown) (unknown) (unknown) (no date) (unknown) (unknown) 05:20 (units unknown) (unknown) (unknown) (no date) (unknown) (unknown) 05:34 08/09/22 (units unknown) (unknown) (unknown) (no date) (unknown) (unknown) 05:34 (units unknown) (unknown) (unknown) (no date) (unknown) (unknown) 06:00 08/09/22 (units unknown) (unknown) (unknown) (no date) (unknown) (unknown) 06:24 08/09/22 (units unknown) (unknown) (unknown) (no date) (unknown) (unknown) 06:24 (units unknown) (unknown) (unknown) (no date) (unknown) (unknown) 07:00 08/09/22 (units unknown) (unknown) (unknown) (no date) (unknown) (unknown) 07:00 (units unknown) (unknown) (unknown) (no date) (unknown) (unknown) 1. Acute alcohol withdrawal with DTs, improving (units unknown) (unknown) (unknown) (no date) (unknown) (unknown) 2. Acute encephalopathy, resolved (units unknown) (unknown) (unknown) (no date) (unknown) (unknown) 21:00 21:00 21:00 (units unknown) (unknown) (unknown) (no date) (unknown) (unknown) 21:00 22:30 04:16 (units unknown) (unknown) (unknown) (no date) (unknown) (unknown) 3. Hypernatremia, resolved (units unknown) (unknown) (unknown) (no date) (unknown) (unknown) 4. Depression and anxiety (units unknown) (unknown) (unknown) (no date) (unknown) (unknown) 5. Anemia, chronic (units unknown) (unknown) (unknown) (no date) (unknown) (unknown) 6. GERD (units unknown) (unknown) (unknown) (no date) (unknown) (unknown) 7. UTI (units unknown) (unknown) (unknown) (no date) (unknown) (unknown) ABD: soft, nontender , nondistended, no organomegaly (units unknown) (unknown) (unknown) (no date) (unknown) (unknown) ALT 51 H (units unknown) (unknown) (unknown) (no date) (unknown) (unknown) ALT 64 H (units unknown) (unknown) (unknown) (no date) (unknown) (unknown) ALT (units unknown) (unknown) (unknown) (no date) (unknown) (unknown) AST 288 H (units unknown) (unknown) (unknown) (no date) (unknown) (unknown) AST 424 H (units unknown) (unknown) (unknown) (no date) (unknown) (unknown) AST (units unknown) (unknown) (unknown) (no date) (unknown) (unknown) Age/Sex: 31 / F (units unknown) (unknown) (unknown) (no date) (unknown) (unknown) Albumin 3.6 (units unknown) (unknown) (unknown) (no date) (unknown) (unknown) Albumin 4.4 (units unknown) (unknown) (unknown) (no date) (unknown) (unknown) Albumin (units unknown) (unknown) (unknown) (no date) (unknown) (unknown) Albumin/Globulin Ratio 1.3 (units unknown) (unknown) (unknown) (no date) (unknown) (unknown) Albumin/Globulin Ratio 1.5 (units unknown) (unknown) (unknown) (no date) (unknown) (unknown) Albumin/Globulin Ratio (units unknown) (unknown) (unknown) (no date) (unknown) (unknown) Alcohol withdrawal delirium, acute, hyperactive (units unknown) (unknown) (unknown) (no date) (unknown) (unknown) Alcoholism (units unknown) (unknown) (unknown) (no date) (unknown) (unknown) Alkaline Phosphatase 59 (units unknown) (unknown) (unknown) (no date) (unknown) (unknown) Alkaline Phosphatase 71 (units unknown) (unknown) (unknown) (no date) (unknown) (unknown) Alkaline Phosphatase (units unknown) (unknown) (unknown) (no date) (unknown) (unknown) Anemia (-2018) (units unknown) (unknown) (unknown) (no date) (unknown) (unknown) Assessment + Plan narrative: (units unknown) (unknown) (unknown) (no date) (unknown) (unknown) Assessment + Plan (units unknown) (unknown) (unknown) (no date) (unknown) (unknown) BP low this mroning at 70's/40's. Received 2L boluses and improved to 90/50's. (units unknown) (unknown) (unknown) (no date) (unknown) (unknown) BUN 7 (units unknown) (unknown) (unknown) (no date) (unknown) (unknown) BUN 8 (units unknown) (unknown) (unknown) (no date) (unknown) (unknown) BUN (units unknown) (unknown) (unknown) (no date) (unknown) (unknown) BUN/Creatinine Ratio 8.9 (units unknown) (unknown) (unknown) (no date) (unknown) (unknown) BUN/Creatinine Ratio 9.2 (units unknown) (unknown) (unknown) (no date) (unknown) (unknown) BUN/Creatinine Ratio (units unknown) (unknown) (unknown) (no date) (unknown) (unknown) Baso # (Auto) 100 (units unknown) (unknown) (unknown) (no date) (unknown) (unknown) Baso # (Auto) (units unknown) (unknown) (unknown) (no date) (unknown) (unknown) Baso % (Auto) 1.9 (units unknown) (unknown) (unknown) (no date) (unknown) (unknown) Baso % (Auto) 2.5 H (units unknown) (unknown) (unknown) (no date) (unknown) (unknown) Baso % (Auto) (units unknown) (unknown) (unknown) (no date) (unknown) (unknown) Blood Pressure 73/40 L 75/39 L (units unknown) (unknown) (unknown) (no date) (unknown) (unknown) Blood Pressure 74/40 L (units unknown) (unknown) (unknown) (no date) (unknown) (unknown) Blood Pressure 77/42 L 80/45 L (units unknown) (unknown) (unknown) (no date) (unknown) (unknown) Blood Pressure 77/47 L (units unknown) (unknown) (unknown) (no date) (unknown) (unknown) Blood Pressure 78/43 L (units unknown) (unknown) (unknown) (no date) (unknown) (unknown) Blood Pressure 78/48 L (units unknown) (unknown) (unknown) (no date) (unknown) (unknown) Blood Pressure 80/44 L 79/43 L (units unknown) (unknown) (unknown) (no date) (unknown) (unknown) Blood Pressure 82/44 L 71/42 L (units unknown) (unknown) (unknown) (no date) (unknown) (unknown) Blood Pressure 86/53 L 83/50 L (units unknown) (unknown) (unknown) (no date) (unknown) (unknown) CODE: Full (units unknown) (unknown) (unknown) (no date) (unknown) (unknown) CV: regular rate and rhythm, no murmurs (units unknown) (unknown) (unknown) (no date) (unknown) (unknown) Calcium 7.7 L (units unknown) (unknown) (unknown) (no date) (unknown) (unknown) Calcium 8.4 (units unknown) (unknown) (unknown) (no date) (unknown) (unknown) Calcium (units unknown) (unknown) (unknown) (no date) (unknown) (unknown) Carbon Dioxide 30 (units unknown) (unknown) (unknown) (no date) (unknown) (unknown) Carbon Dioxide 33 H (units unknown) (unknown) (unknown) (no date) (unknown) (unknown) Carbon Dioxide (units unknown) (unknown) (unknown) (no date) (unknown) (unknown) Chloride 104 (units unknown) (unknown) (unknown) (no date) (unknown) (unknown) Chloride 107 (units unknown) (unknown) (unknown) (no date) (unknown) (unknown) Chloride (units unknown) (unknown) (unknown) (no date) (unknown) (unknown) Conjugated Bilirubin 0.0 (units unknown) (unknown) (unknown) (no date) (unknown) (unknown) Conjugated Bilirubin (units unknown) (unknown) (unknown) (no date) (unknown) (unknown) Creatinine 0.76 (units unknown) (unknown) (unknown) (no date) (unknown) (unknown) Creatinine 0.90 (units unknown) (unknown) (unknown) (no date) (unknown) (unknown) Creatinine (units unknown) (unknown) (unknown) (no date) (unknown) (unknown) : 1990 Acct:[id number] (units unknown) (unknown) (unknown) (no date) (unknown) (unknown) Date of Service: 08/08/22 (units unknown) (unknown) (unknown) (no date) (unknown) (unknown) Deep Vein Thrombosis/Pulmonary Embolism Present on Admission: No (units unknown) (unknown) (unknown) (no date) (unknown) (unknown) Dispo: Likely intpatient detox pending [employer]. (units unknown) (unknown) (unknown) (no date) (unknown) (unknown) EXT: warm and well perfused with no edema (units unknown) (unknown) (unknown) (no date) (unknown) (unknown) Eos # (Auto) 0 (units unknown) (unknown) (unknown) (no date) (unknown) (unknown) Eos # (Auto) (units unknown) (unknown) (unknown) (no date) (unknown) (unknown) Eos % (Auto) 0.7 L (units unknown) (unknown) (unknown) (no date) (unknown) (unknown) Eos % (Auto) 0.8 L (units unknown) (unknown) (unknown) (no date) (unknown) (unknown) Eos % (Auto) (units unknown) (unknown) (unknown) (no date) (unknown) (unknown) Estimated GFR > 60 (units unknown) (unknown) (unknown) (no date) (unknown) (unknown) Estimated GFR (units unknown) (unknown) (unknown) (no date) (unknown) (unknown) Ethyl Alcohol 393 H (units unknown) (unknown) (unknown) (no date) (unknown) (unknown) Ethyl Alcohol (units unknown) (unknown) (unknown) (no date) (unknown) (unknown) Exam Narrative: (units unknown) (unknown) (unknown) (no date) (unknown) (unknown) Exam (units unknown) (unknown) (unknown) (no date) (unknown) (unknown) Family History (units unknown) (unknown) (unknown) (no date) (unknown) (unknown) Family/Other Alcoholism (units unknown) (unknown) (unknown) (no date) (unknown) (unknown) Family/Other Diabete s mellitus (units unknown) (unknown) (unknown) (no date) (unknown) (unknown) Father Alcoholism (units unknown) (unknown) (unknown) (no date) (unknown) (unknown) GEN: no distress (units unknown) (unknown) (unknown) (no date) (unknown) (unknown) Globulin 2.4 (units unknown) (unknown) (unknown) (no date) (unknown) (unknown) Globulin 3.3 (units unknown) (unknown) (unknown) (no date) (unknown) (unknown) Globulin (units unknown) (unknown) (unknown) (no date) (unknown) (unknown) Glucose 84 (units unknown) (unknown) (unknown) (no date) (unknown) (unknown) Glucose 92 (units unknown) (unknown) (unknown) (no date) (unknown) (unknown) Glucose (units unknown) (unknown) (unknown) (no date) (unknown) (unknown) Grandfather Smoker (units unknown) (unknown) (unknown) (no date) (unknown) (unknown) Grandfather Unknown whether patient has any health problems (units unknown) (unknown) (unknown) (no date) (unknown) (unknown) Grandmother Diabetes mellitus (units unknown) (unknown) (unknown) (no date) (unknown) (unknown) Grandmother Hypoglycemia (units unknown) (unknown) (unknown) (no date) (unknown) (unknown) H/O dilation and curettage (-12/14/16) (units unknown) (unknown) (unknown) (no date) (unknown) (unknown) H/O wisdom tooth extraction () (units unknown) (unknown) (unknown) (no date) (unknown) (unknown) HEENT: moist mucous membranes, PERRL (units unknown) (unknown) (unknown) (no date) (unknown) (unknown) Hct 31.4 L (units unknown) (unknown) (unknown) (no date) (unknown) (unknown) Hct 37.0 (units unknown) (unknown) (unknown) (no date) (unknown) (unknown) Hct (units unknown) (unknown) (unknown) (no date) (unknown) (unknown) Hgb 10.1 L (units unknown) (unknown) (unknown) (no date) (unknown) (unknown) Hgb 11.9 L (units unknown) (unknown) (unknown) (no date) (unknown) (unknown) Hgb (units unknown) (unknown) (unknown) (no date) (unknown) (unknown) Insomnia (units unknown) (unknown) (unknown) (no date) (unknown) (unknown) Interval history: (units unknown) (unknown) (unknown) (no date) (unknown) (unknown) [address] [address] (units unknown) (unknown) (unknown) (no date) (unknown) (unknown) Laboratory Results - last 24 hr (units unknown) (unknown) (unknown) (no date) (unknown) (unknown) Labs (units unknown) (unknown) (unknown) (no date) (unknown) (unknown) Labs: (units unknown) (unknown) (unknown) (no date) (unknown) (unknown) Lipase 408 H (units unknown) (unknown) (unknown) (no date) (unknown) (unknown) Lipase (units unknown) (unknown) (unknown) (no date) (unknown) (unknown) Lymph # (Auto) 2600 (units unknown) (unknown) (unknown) (no date) (unknown) (unknown) Lymph # (Auto) 2800 (units unknown) (unknown) (unknown) (no date) (unknown) (unknown) Lymph # (Auto) (units unknown) (unknown) (unknown) (no date) (unknown) (unknown) Lymph % (Auto) 51.5 H (units unknown) (unknown) (unknown) (no date) (unknown) (unknown) Lymph % (Auto) 54.2 H (units unknown) (unknown) (unknown) (no date) (unknown) (unknown) Lymph % (Auto) (units unknown) (unknown) (unknown) (no date) (unknown) (unknown) MCH 25.4 L (units unknown) (unknown) (unknown) (no date) (unknown) (unknown) MCH 25.7 L (units unknown) (unknown) (unknown) (no date) (unknown) (unknown) MCH (units unknown) (unknown) (unknown) (no date) (unknown) (unknown) MCHC 32.1 (units unknown) (unknown) (unknown) (no date) (unknown) (unknown) MCHC 32.2 (units unknown) (unknown) (unknown) (no date) (unknown) (unknown) MCHC (units unknown) (unknown) (unknown) (no date) (unknown) (unknown) MCV 79.0 L (units unknown) (unknown) (unknown) (no date) (unknown) (unknown) MCV 80.2 (units unknown) (unknown) (unknown) (no date) (unknown) (unknown) MCV (units unknown) (unknown) (unknown) (no date) (unknown) (unknown) Magnesium 2.2 (units unknown) (unknown) (unknown) (no date) (unknown) (unknown) Magnesium (units unknown) (unknown) (unknown) (no date) (unknown) (unknown) Medical History (units unknown) (unknown) (unknown) (no date) (unknown) (unknown) Menometrorrhagia (units unknown) (unknown) (unknown) (no date) (unknown) (unknown) [place] # (Auto) 300 (units unknown) (unknown) (unknown) (no date) (unknown) (unknown) [place] # (Auto) 400 (units unknown) (unknown) (unknown) (no date) (unknown) (unknown) [place] # (Auto) (units unknown) (unknown) (unknown) (no date) (unknown) (unknown) [place] % (Auto) 6.5 (units unknown) (unknown) (unknown) (no date) (unknown) (unknown) [place] % (Auto) 8.6 (units unknown) (unknown) (unknown) (no date) (unknown) (unknown) [place] % (Auto) (units unknown) (unknown) (unknown) (no date) (unknown) (unknown) Mother Diabetes mellitus (units unknown) (unknown) (unknown) (no date) (unknown) (unknown) NECK: trachea midline, no JVD (units unknown) (unknown) (unknown) (no date) (unknown) (unknown) NEURO: awake and alert, no focal deficits (units unknown) (unknown) (unknown) (no date) (unknown) (unknown) Narrative (units unknown) (unknown) (unknown) (no date) (unknown) (unknown) Neut # (Auto) 1900 (units unknown) (unknown) (unknown) (no date) (unknown) (unknown) Neut # (Auto) (units unknown) (unknown) (unknown) (no date) (unknown) (unknown) Neut % (Auto) 36.6 L (units unknown) (unknown) (unknown) (no date) (unknown) (unknown) Neut % (Auto) 36.7 L (units unknown) (unknown) (unknown) (no date) (unknown) (unknown) Neut % (Auto) (units unknown) (unknown) (unknown) (no date) (unknown) (unknown) Obesity (units unknown) (unknown) (unknown) (no date) (unknown) (unknown) Objective (units unknown) (unknown) (unknown) (no date) (unknown) (unknown) Overweight (units unknown) (unknown) (unknown) (no date) (unknown) (unknown) Oxygen Delivery Method Room Air (units unknown) (unknown) (unknown) (no date) (unknown) (unknown) PFSH (units unknown) (unknown) (unknown) (no date) (unknown) (unknown) PULM: clear bilaterally, no wheezes, rhonchi, rales (units unknown) (unknown) (unknown) (no date) (unknown) (unknown) Patient: DorySarah Emilie MR#: M (units unknown) (unknown) (unknown) (no date) (unknown) (unknown) Plt Count 332 (units unknown) (unknown) (unknown) (no date) (unknown) (unknown) Plt Count 396 (units unknown) (unknown) (unknown) (no date) (unknown) (unknown) Plt Count (units unknown) (unknown) (unknown) (no date) (unknown) (unknown) Potassium 3.5 (units unknown) (unknown) (unknown) (no date) (unknown) (unknown) Potassium 3.6 (units unknown) (unknown) (unknown) (no date) (unknown) (unknown) Potassium (units unknown) (unknown) (unknown) (no date) (unknown) (unknown) Procal negative. WBC negative. Patient now off precedex and awake and alert. She (units unknown) (unknown) (unknown) (no date) (unknown) (unknown) Progress Note (units unknown) (unknown) (unknown) (no date) (unknown) (unknown) Provider: Jabari Sena D.O. (units unknown) (unknown) (unknown) (no date) (unknown) (unknown) Proxy: Rober Connors, spouse (units unknown) (unknown) (unknown) (no date) (unknown) (unknown) Pulse Oximetry 95 95 (units unknown) (unknown) (unknown) (no date) (unknown) (unknown) Pulse Oximetry 95 96 (units unknown) (unknown) (unknown) (no date) (unknown) (unknown) Pulse Oximetry 95 (units unknown) (unknown) (unknown) (no date) (unknown) (unknown) Pulse Oximetry 96 (units unknown) (unknown) (unknown) (no date) (unknown) (unknown) Pulse Oximetry 97 96 (units unknown) (unknown) (unknown) (no date) (unknown) (unknown) Pulse Oximetry 97 (units unknown) (unknown) (unknown) (no date) (unknown) (unknown) Pulse Oximetry 99 99 (units unknown) (unknown) (unknown) (no date) (unknown) (unknown) Pulse Rate 69 72 (units unknown) (unknown) (unknown) (no date) (unknown) (unknown) Pulse Rate 71 (units unknown) (unknown) (unknown) (no date) (unknown) (unknown) Pulse Rate 72 (units unknown) (unknown) (unknown) (no date) (unknown) (unknown) Pulse Rate 75 69 (units unknown) (unknown) (unknown) (no date) (unknown) (unknown) Pulse Rate 75 75 (units unknown) (unknown) (unknown) (no date) (unknown) (unknown) Pulse Rate 75 78 (units unknown) (unknown) (unknown) (no date) (unknown) (unknown) Pulse Rate 75 (units unknown) (unknown) (unknown) (no date) (unknown) (unknown) Pulse Rate 76 71 (units unknown) (unknown) (unknown) (no date) (unknown) (unknown) Pulse Rate 79 76 (units unknown) (unknown) (unknown) (no date) (unknown) (unknown) Quality (units unknown) (unknown) (unknown) (no date) (unknown) (unknown) RBC 3.98 L (units unknown) (unknown) (unknown) (no date) (unknown) (unknown) RBC 4.61 (units unknown) (unknown) (unknown) (no date) (unknown) (unknown) RBC (units unknown) (unknown) (unknown) (no date) (unknown) (unknown) RDW 19.5 H (units unknown) (unknown) (unknown) (no date) (unknown) (unknown) RDW 19.7 H (units unknown) (unknown) (unknown) (no date) (unknown) (unknown) RDW (units unknown) (unknown) (unknown) (no date) (unknown) (unknown) Respiratory Rate 14 16 (units unknown) (unknown) (unknown) (no date) (unknown) (unknown) Respiratory Rate 16 16 (units unknown) (unknown) (unknown) (no date) (unknown) (unknown) Respiratory Rate 18 19 (units unknown) (unknown) (unknown) (no date) (unknown) (unknown) Respiratory Rate 18 (units unknown) (unknown) (unknown) (no date) (unknown) (unknown) Respiratory Rate 19 (units unknown) (unknown) (unknown) (no date) (unknown) (unknown) Respiratory Rate 21 20 (units unknown) (unknown) (unknown) (no date) (unknown) (unknown) Respiratory Rate 27 H (units unknown) (unknown) (unknown) (no date) (unknown) (unknown) Respiratory Rate 34 H 23 (units unknown) (unknown) (unknown) (no date) (unknown) (unknown) Respiratory Rate 37 H 16 (units unknown) (unknown) (unknown) (no date) (unknown) (unknown) Respiratory Rate 37 H (units unknown) (unknown) (unknown) (no date) (unknown) (unknown) S/P myringotomy with insertion of tube (units unknown) (unknown) (unknown) (no date) (unknown) (unknown) SARS-CoV-2 (PCR) Negative (units unknown) (unknown) (unknown) (no date) (unknown) (unknown) SARS-CoV-2 (PCR) (units unknown) (unknown) (unknown) (no date) (unknown) (unknown) (spontaneous vaginal delivery) (-09/05/18) (units unknown) (unknown) (unknown) (no date) (unknown) (unknown) Signed By:<Electronically signed by Jabari Sena D.O.> (units unknown) (unknown) (unknown) (no date) (unknown) (unknown) Smoker (units unknown) (unknown) (unknown) (no date) (unknown) (unknown) Smoking Status: Former smoker (units unknown) (unknown) (unknown) (no date) (unknown) (unknown) Social History (units unknown) (unknown) (unknown) (no date) (unknown) (unknown) Sodium 145 (units unknown) (unknown) (unknown) (no date) (unknown) (unknown) Sodium 148 H D (units unknown) (unknown) (unknown) (no date) (unknown) (unknown) Sodium (units unknown) (unknown) (unknown) (no date) (unknown) (unknown) Subjective (units unknown) (unknown) (unknown) (no date) (unknown) (unknown) Surgical History (units unknown) (unknown) (unknown) (no date) (unknown) (unknown) Temperature 98.6 F (units unknown) (unknown) (unknown) (no date) (unknown) (unknown) Temperature (units unknown) (unknown) (unknown) (no date) (unknown) (unknown) Total Bilirubin 0.3 (units unknown) (unknown) (unknown) (no date) (unknown) (unknown) Total Bilirubin 0.4 (units unknown) (unknown) (unknown) (no date) (unknown) (unknown) Total Bilirubin (units unknown) (unknown) (unknown) (no date) (unknown) (unknown) Total Protein 6.0 L (units unknown) (unknown) (unknown) (no date) (unknown) (unknown) Total Protein 7.7 (units unknown) (unknown) (unknown) (no date) (unknown) (unknown) Total Protein (units unknown) (unknown) (unknown) (no date) (unknown) (unknown) U Benzodiazepines Scrn Positive H (units unknown) (unknown) (unknown) (no date) (unknown) (unknown) U Benzodiazepines Scrn (units unknown) (unknown) (unknown) (no date) (unknown) (unknown) U Marijuana (THC) Screen Negative (units unknown) (unknown) (unknown) (no date) (unknown) (unknown) U Marijuana (THC) Screen (units unknown) (unknown) (unknown) (no date) (unknown) (unknown) U Methamphetamines Scrn Negative (units unknown) (unknown) (unknown) (no date) (unknown) (unknown) U Methamphetamines Scrn (units unknown) (unknown) (unknown) (no date) (unknown) (unknown) U Opiates 300ng/mL cut Negative (units unknown) (unknown) (unknown) (no date) (unknown) (unknown) U Opiates 300ng/mL cut (units unknown) (unknown) (unknown) (no date) (unknown) (unknown) U Tricyclic Antidepress Positive H (units unknown) (unknown) (unknown) (no date) (unknown) (unknown) U Tricyclic Antidepress (units unknown) (unknown) (unknown) (no date) (unknown) (unknown) Unconjugated Bilirubin 0.0 (units unknown) (unknown) (unknown) (no date) (unknown) (unknown) Unconjugated Bilirubin (units unknown) (unknown) (unknown) (no date) (unknown) (unknown) Ur Amphetamines Screen Negative (units unknown) (unknown) (unknown) (no date) (unknown) (unknown) Ur Amphetamines Screen (units unknown) (unknown) (unknown) (no date) (unknown) (unknown) Ur Barbiturates Screen Positive H (units unknown) (unknown) (unknown) (no date) (unknown) (unknown) Ur Barbiturates Screen (units unknown) (unknown) (unknown) (no date) (unknown) (unknown) Ur Culture Indicated ? Specimen cultured (units unknown) (unknown) (unknown) (no date) (unknown) (unknown) Ur Culture Indicated? (units unknown) (unknown) (unknown) (no date) (unknown) (unknown) Ur Leukocyte Esteras e 1+ H (units unknown) (unknown) (unknown) (no date) (unknown) (unknown) Ur Leukocyte Esterase (units unknown) (unknown) (unknown) (no date) (unknown) (unknown) Ur MDMA Scrn (Ecstasy) Negative (units unknown) (unknown) (unknown) (no date) (unknown) (unknown) Ur MDMA Scrn (Ecstasy) (units unknown) (unknown) (unknown) (no date) (unknown) (unknown) Ur Oxycodone Screen Negative (units unknown) (unknown) (unknown) (no date) (unknown) (unknown) Ur Oxycodone Screen (units unknown) (unknown) (unknown) (no date) (unknown) (unknown) Ur Phencyclidine Scr n Negative (units unknown) (unknown) (unknown) (no date) (unknown) (unknown) Ur Phencyclidine Scrn (units unknown) (unknown) (unknown) (no date) (unknown) (unknown) Ur Specific [place] 1.015 (units unknown) (unknown) (unknown) (no date) (unknown) (unknown) Ur Specific [place] (units unknown) (unknown) (unknown) (no date) (unknown) (unknown) Urine Appearance Clear (units unknown) (unknown) (unknown) (no date) (unknown) (unknown) Urine Appearance (units unknown) (unknown) (unknown) (no date) (unknown) (unknown) Urine Bacteria Many (>30) H (units unknown) (unknown) (unknown) (no date) (unknown) (unknown) Urine Bacteria (units unknown) (unknown) (unknown) (no date) (unknown) (unknown) Urine Bilirubin Negative (units unknown) (unknown) (unknown) (no date) (unknown) (unknown) Urine Bilirubin (units unknown) (unknown) (unknown) (no date) (unknown) (unknown) Urine Cocaine Screen Negative (units unknown) (unknown) (unknown) (no date) (unknown) (unknown) Urine Cocaine Screen (units unknown) (unknown) (unknown) (no date) (unknown) (unknown) Urine Color Yellow (units unknown) (unknown) (unknown) (no date) (unknown) (unknown) Urine Color (units unknown) (unknown) (unknown) (no date) (unknown) (unknown) Urine Glucose (UA) Negative (units unknown) (unknown) (unknown) (no date) (unknown) (unknown) Urine Glucose (UA) (units unknown) (unknown) (unknown) (no date) (unknown) (unknown) Urine Ketones Negative (units unknown) (unknown) (unknown) (no date) (unknown) (unknown) Urine Ketones (units unknown) (unknown) (unknown) (no date) (unknown) (unknown) Urine Methadone Screen Negative (units unknown) (unknown) (unknown) (no date) (unknown) (unknown) Urine Methadone Screen (units unknown) (unknown) (unknown) (no date) (unknown) (unknown) Urine Nitrate Positive H (units unknown) (unknown) (unknown) (no date) (unknown) (unknown) Urine Nitrate (units unknown) (unknown) (unknown) (no date) (unknown) (unknown) Urine Occult Blood Negative (units unknown) (unknown) (unknown) (no date) (unknown) (unknown) Urine Occult Blood (units unknown) (unknown) (unknown) (no date) (unknown) (unknown) Urine Test Negative (units unknown) (unknown) (unknown) (no date) (unknown) (unknown) Urine Test (units unknown) (unknown) (unknown) (no date) (unknown) (unknown) Urine Protein Negative (units unknown) (unknown) (unknown) (no date) (unknown) (unknown) Urine Protein (units unknown) (unknown) (unknown) (no date) (unknown) (unknown) Urine RBC None seen (units unknown) (unknown) (unknown) (no date) (unknown) (unknown) Urine RBC (units unknown) (unknown) (unknown) (no date) (unknown) (unknown) Urine Urobilinogen 0.2 (units unknown) (unknown) (unknown) (no date) (unknown) (unknown) Urine Urobilinogen (units unknown) (unknown) (unknown) (no date) (unknown) (unknown) Urine WBC 10-30/hpf H (units unknown) (unknown) (unknown) (no date) (unknown) (unknown) Urine WBC (units unknown) (unknown) (unknown) (no date) (unknown) (unknown) Urine pH 6.0 (units unknown) (unknown) (unknown) (no date) (unknown) (unknown) Urine pH (units unknown) (unknown) (unknown) (no date) (unknown) (unknown) VTE (units unknown) (unknown) (unknown) (no date) (unknown) (unknown) Vital Signs (units unknown) (unknown) (unknown) (no date) (unknown) (unknown) WBC 5.1 (units unknown) (unknown) (unknown) (no date) (unknown) (unknown) WBC 5.2 (units unknown) (unknown) (unknown) (no date) (unknown) (unknown) WBC (units unknown) (unknown) (unknown) (no date) (unknown) (unknown) [Embedded Image Not Available] (units unknown) (unknown) (unknown) (no date) (unknown) (unknown) alcohol intake: current (units unknown) (unknown) (unknown) (no date) (unknown) (unknown) current occupational exposures/hazards: Yes (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 with Pandemic ) (units unknown) (unknown) (unknown) (no date) (unknown) (unknown) education level: college 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 (units unknown) (unknown) (unknown) (no date) (unknown) (unknown) household members: significant other (units unknown) (unknown) (unknown) (no date) (unknown) (unknown) marital status: (units unknown) (unknown) (unknown) (no date) (unknown) (unknown) month (units unknown) (unknown) (unknown) (no date) (unknown) (unknown) number of children: 1 (units unknown) (unknown) (unknown) (no date) (unknown) (unknown) occupational status: employed (units unknown) (unknown) (unknown) (no date) (unknown) (unknown) second hand exposure : No (growing up as a child - not currently) (units unknown) (unknown) (unknown) (no date) (unknown) (unknown) special renee needs: No (units unknown) (unknown) (unknown) (no date) (unknown) (unknown) substance use type: does not use (units unknown) (unknown) Result panel 2307 (unknown) (no date) (unknown) (unknown) 2.1 mmol/l (unknown) Result panel 2308 (unknown) (no date) (unknown) (unknown) (no value) (units unknown) (unknown) (unknown) (no date) (unknown) (unknown) (past 8 hours): (units unknown) (unknown) (unknown) (no date) (unknown) (unknown) ADDENDUM (units unknown) (unknown) (unknown) (no date) (unknown) (unknown) -[employer]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 (units unknown) (unknown) (unknown) (no date) (unknown) (unknown) -UA with pyuria (units unknown) (unknown) (unknown) (no date) (unknown) (unknown) -continue PPI (units unknown) (unknown) (unknown) (no date) (unknown) (unknown) -continue ciwa protocol, with ativan, librium 50mg q6 (units unknown) (unknown) (unknown) (no date) (unknown) (unknown) -continue prozac (units unknown) (unknown) (unknown) (no date) (unknown) (unknown) -continue to trend (units unknown) (unknown) (unknown) (no date) (unknown) (unknown) -each time she has refused rehab (units unknown) (unknown) (unknown) (no date) (unknown) (unknown) -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 (units unknown) (unknown) (unknown) (no date) (unknown) (unknown) -likely secondary to inadequate PO intake due to alcoholism (units unknown) (unknown) (unknown) (no date) (unknown) (unknown) -multiple admissions and hospital visits for alcohol withdrawal within the last (units unknown) (unknown) (unknown) (no date) (unknown) (unknown) -now off precedex (units unknown) (unknown) (unknown) (no date) (unknown) (unknown) -ordered for high dose thiamine for prevention/treatment of wernicke's (units unknown) (unknown) (unknown) (no date) (unknown) (unknown) -per ED she is requesting detox after drinking heavily after discharge (units unknown) (unknown) (unknown) (no date) (unknown) (unknown) -per ED she was hallucinating and agitated on arrival, received phenobarbital (units unknown) (unknown) (unknown) (no date) (unknown) (unknown) -rocephin x3 days (units unknown) (unknown) (unknown) (no date) (unknown) (unknown) -she was just discharged 5 days ago, refusing rehab (units unknown) (unknown) (unknown) (no date) (unknown) (unknown) -suspect secondary t o alcohol withdrawal and phenobarbital and treat as above (units unknown) (unknown) (unknown) (no date) (unknown) (unknown) -trend daily (units unknown) (unknown) (unknown) (no date) (unknown) (unknown) [phone] (units unknown) (unknown) (unknown) (no date) (unknown) (unknown) 01:00 08/09/22 (units unknown) (unknown) (unknown) (no date) (unknown) (unknown) 01:06 08/09/22 (units unknown) (unknown) (unknown) (no date) (unknown) (unknown) 01:06 (units unknown) (unknown) (unknown) (no date) (unknown) (unknown) 01:29 08/09/22 (units unknown) (unknown) (unknown) (no date) (unknown) (unknown) 01:29 (units unknown) (unknown) (unknown) (no date) (unknown) (unknown) 02:00 08/09/22 (units unknown) (unknown) (unknown) (no date) (unknown) (unknown) 08/08/22 08/08/22 08/08/22 (units unknown) (unknown) (unknown) (no date) (unknown) (unknown) 08/08/22 08/08/22 08/09/22 (units unknown) (unknown) (unknown) (no date) (unknown) (unknown) 08/09/22 08/09/22 08/09/22 (units unknown) (unknown) (unknown) (no date) (unknown) (unknown) 08/09/22 08/09/22 (units unknown) (unknown) (unknown) (no date) (unknown) (unknown) 08/09/22 04:16 (units unknown) (unknown) (unknown) (no date) (unknown) (unknown) 08/09/22 1035 (units unknown) (unknown) (unknown) (no date) (unknown) (unknown) 08/09/22 1645 (units unknown) (unknown) (unknown) (no date) (unknown) (unknown) 08/09/22 (units unknown) (unknown) (unknown) (no date) (unknown) (unknown) 03:00 08/09/22 (units unknown) (unknown) (unknown) (no date) (unknown) (unknown) 03:00 (units unknown) (unknown) (unknown) (no date) (unknown) (unknown) 03:02 08/09/22 (units unknown) (unknown) (unknown) (no date) (unknown) (unknown) 03:02 (units unknown) (unknown) (unknown) (no date) (unknown) (unknown) 04:00 08/09/22 (units unknown) (unknown) (unknown) (no date) (unknown) (unknown) 04:16 04:16 04:30 (units unknown) (unknown) (unknown) (no date) (unknown) (unknown) 04:20 08/09/22 (units unknown) (unknown) (unknown) (no date) (unknown) (unknown) 04:20 (units unknown) (unknown) (unknown) (no date) (unknown) (unknown) 04:30 04:30 (units unknown) (unknown) (unknown) (no date) (unknown) (unknown) 05:00 08/09/22 (units unknown) (unknown) (unknown) (no date) (unknown) (unknown) 05:00 (units unknown) (unknown) (unknown) (no date) (unknown) (unknown) 05:02 08/09/22 (units unknown) (unknown) (unknown) (no date) (unknown) (unknown) 05:20 08/09/22 (units unknown) (unknown) (unknown) (no date) (unknown) (unknown) 05:20 (units unknown) (unknown) (unknown) (no date) (unknown) (unknown) 05:34 08/09/22 (units unknown) (unknown) (unknown) (no date) (unknown) (unknown) 05:34 (units unknown) (unknown) (unknown) (no date) (unknown) (unknown) 06:00 08/09/22 (units unknown) (unknown) (unknown) (no date) (unknown) (unknown) 06:24 08/09/22 (units unknown) (unknown) (unknown) (no date) (unknown) (unknown) 06:24 (units unknown) (unknown) (unknown) (no date) (unknown) (unknown) 07:00 08/09/22 (units unknown) (unknown) (unknown) (no date) (unknown) (unknown) 07:00 (units unknown) (unknown) (unknown) (no date) (unknown) (unknown) 1. Acute alcohol withdrawal with DTs, improving (units unknown) (unknown) (unknown) (no date) (unknown) (unknown) 2. Acute encephalopathy, resolved (units unknown) (unknown) (unknown) (no date) (unknown) (unknown) 21:00 21:00 21:00 (units unknown) (unknown) (unknown) (no date) (unknown) (unknown) 21:00 22:30 04:16 (units unknown) (unknown) (unknown) (no date) (unknown) (unknown) 3. Hypernatremia, resolved (units unknown) (unknown) (unknown) (no date) (unknown) (unknown) 4. Depression and anxiety (units unknown) (unknown) (unknown) (no date) (unknown) (unknown) 5. Anemia, chronic (units unknown) (unknown) (unknown) (no date) (unknown) (unknown) 6. GERD (units unknown) (unknown) (unknown) (no date) (unknown) (unknown) 7. UTI (units unknown) (unknown) (unknown) (no date) (unknown) (unknown) ABD: soft, nontender , nondistended, no organomegaly (units unknown) (unknown) (unknown) (no date) (unknown) (unknown) ALT 51 H (units unknown) (unknown) (unknown) (no date) (unknown) (unknown) ALT 64 H (units unknown) (unknown) (unknown) (no date) (unknown) (unknown) ALT (units unknown) (unknown) (unknown) (no date) (unknown) (unknown) AST 288 H (units unknown) (unknown) (unknown) (no date) (unknown) (unknown) AST 424 H (units unknown) (unknown) (unknown) (no date) (unknown) (unknown) AST (units unknown) (unknown) (unknown) (no date) (unknown) (unknown) Addendum Documented By: Jabari Sena DForestOForest (units unknown) (unknown) (unknown) (no date) (unknown) (unknown) Addendum Signed By: <Electronically signed by Jabari Sena, (units unknown) (unknown) (unknown) (no date) (unknown) (unknown) Age/Sex: 31 / F (units unknown) (unknown) (unknown) (no date) (unknown) (unknown) Albumin 3.6 (units unknown) (unknown) (unknown) (no date) (unknown) (unknown) Albumin 4.4 (units unknown) (unknown) (unknown) (no date) (unknown) (unknown) Albumin (units unknown) (unknown) (unknown) (no date) (unknown) (unknown) Albumin/Globulin Ratio 1.3 (units unknown) (unknown) (unknown) (no date) (unknown) (unknown) Albumin/Globulin Ratio 1.5 (units unknown) (unknown) (unknown) (no date) (unknown) (unknown) Albumin/Globulin Ratio (units unknown) (unknown) (unknown) (no date) (unknown) (unknown) Alcohol withdrawal delirium, acute, hyperactive (units unknown) (unknown) (unknown) (no date) (unknown) (unknown) Alcoholism (units unknown) (unknown) (unknown) (no date) (unknown) (unknown) Alkaline Phosphatase 59 (units unknown) (unknown) (unknown) (no date) (unknown) (unknown) Alkaline Phosphatase 71 (units unknown) (unknown) (unknown) (no date) (unknown) (unknown) Alkaline Phosphatase (units unknown) (unknown) (unknown) (no date) (unknown) (unknown) Anemia (-2018) (units unknown) (unknown) (unknown) (no date) (unknown) (unknown) Assessment + Plan narrative: (units unknown) (unknown) (unknown) (no date) (unknown) (unknown) Assessment + Plan (units unknown) (unknown) (unknown) (no date) (unknown) (unknown) BP low this mroning at 70's/40's. Received 2L boluses and improved to 90/50's. (units unknown) (unknown) (unknown) (no date) (unknown) (unknown) BUN 7 (units unknown) (unknown) (unknown) (no date) (unknown) (unknown) BUN 8 (units unknown) (unknown) (unknown) (no date) (unknown) (unknown) BUN (units unknown) (unknown) (unknown) (no date) (unknown) (unknown) BUN/Creatinine Ratio 8.9 (units unknown) (unknown) (unknown) (no date) (unknown) (unknown) BUN/Creatinine Ratio 9.2 (units unknown) (unknown) (unknown) (no date) (unknown) (unknown) BUN/Creatinine Ratio (units unknown) (unknown) (unknown) (no date) (unknown) (unknown) Baso # (Auto) 100 (units unknown) (unknown) (unknown) (no date) (unknown) (unknown) Baso # (Auto) (units unknown) (unknown) (unknown) (no date) (unknown) (unknown) Baso % (Auto) 1.9 (units unknown) (unknown) (unknown) (no date) (unknown) (unknown) Baso % (Auto) 2.5 H (units unknown) (unknown) (unknown) (no date) (unknown) (unknown) Baso % (Auto) (units unknown) (unknown) (unknown) (no date) (unknown) (unknown) Blood Pressure 73/40 L 75/39 L (units unknown) (unknown) (unknown) (no date) (unknown) (unknown) Blood Pressure 74/40 L (units unknown) (unknown) (unknown) (no date) (unknown) (unknown) Blood Pressure 77/42 L 80/45 L (units unknown) (unknown) (unknown) (no date) (unknown) (unknown) Blood Pressure 77/47 L (units unknown) (unknown) (unknown) (no date) (unknown) (unknown) Blood Pressure 78/43 L (units unknown) (unknown) (unknown) (no date) (unknown) (unknown) Blood Pressure 78/48 L (units unknown) (unknown) (unknown) (no date) (unknown) (unknown) Blood Pressure 80/44 L 79/43 L (units unknown) (unknown) (unknown) (no date) (unknown) (unknown) Blood Pressure 82/44 L 71/42 L (units unknown) (unknown) (unknown) (no date) (unknown) (unknown) Blood Pressure 86/53 L 83/50 L (units unknown) (unknown) (unknown) (no date) (unknown) (unknown) CODE: Full (units unknown) (unknown) (unknown) (no date) (unknown) (unknown) CV: regular rate and rhythm, no murmurs (units unknown) (unknown) (unknown) (no date) (unknown) (unknown) Calcium 7.7 L (units unknown) (unknown) (unknown) (no date) (unknown) (unknown) Calcium 8.4 (units unknown) (unknown) (unknown) (no date) (unknown) (unknown) Calcium (units unknown) (unknown) (unknown) (no date) (unknown) (unknown) Carbon Dioxide 30 (units unknown) (unknown) (unknown) (no date) (unknown) (unknown) Carbon Dioxide 33 H (units unknown) (unknown) (unknown) (no date) (unknown) (unknown) Carbon Dioxide (units unknown) (unknown) (unknown) (no date) (unknown) (unknown) Chloride 104 (units unknown) (unknown) (unknown) (no date) (unknown) (unknown) Chloride 107 (units unknown) (unknown) (unknown) (no date) (unknown) (unknown) Chloride (units unknown) (unknown) (unknown) (no date) (unknown) (unknown) Conjugated Bilirubin 0.0 (units unknown) (unknown) (unknown) (no date) (unknown) (unknown) Conjugated Bilirubin (units unknown) (unknown) (unknown) (no date) (unknown) (unknown) Creatinine 0.76 (units unknown) (unknown) (unknown) (no date) (unknown) (unknown) Creatinine 0.90 (units unknown) (unknown) (unknown) (no date) (unknown) (unknown) Creatinine (units unknown) (unknown) (unknown) (no date) (unknown) (unknown) D.O.> 08/09/22 1645 (units unknown) (unknown) (unknown) (no date) (unknown) (unknown) : 1990 Acct:[id number] (units unknown) (unknown) (unknown) (no date) (unknown) (unknown) Date of Service: 08/08/22 (units unknown) (unknown) (unknown) (no date) (unknown) (unknown) Deep Vein Thrombosis/Pulmonary Embolism Present on Admission: No (units unknown) (unknown) (unknown) (no date) (unknown) (unknown) Dispo: Likely intpatient detox pending [employer]. (units unknown) (unknown) (unknown) (no date) (unknown) (unknown) EXT: warm and well perfused with no edema (units unknown) (unknown) (unknown) (no date) (unknown) (unknown) Eos # (Auto) 0 (units unknown) (unknown) (unknown) (no date) (unknown) (unknown) Eos # (Auto) (units unknown) (unknown) (unknown) (no date) (unknown) (unknown) Eos % (Auto) 0.7 L (units unknown) (unknown) (unknown) (no date) (unknown) (unknown) Eos % (Auto) 0.8 L (units unknown) (unknown) (unknown) (no date) (unknown) (unknown) Eos % (Auto) (units unknown) (unknown) (unknown) (no date) (unknown) (unknown) Estimated GFR > 60 (units unknown) (unknown) (unknown) (no date) (unknown) (unknown) Estimated GFR (units unknown) (unknown) (unknown) (no date) (unknown) (unknown) Ethyl Alcohol 393 H (units unknown) (unknown) (unknown) (no date) (unknown) (unknown) Ethyl Alcohol (units unknown) (unknown) (unknown) (no date) (unknown) (unknown) Exam Narrative: (units unknown) (unknown) (unknown) (no date) (unknown) (unknown) Exam (units unknown) (unknown) (unknown) (no date) (unknown) (unknown) Family History (units unknown) (unknown) (unknown) (no date) (unknown) (unknown) Family/Other Alcoholism (units unknown) (unknown) (unknown) (no date) (unknown) (unknown) Family/Other Diabete s mellitus (units unknown) (unknown) (unknown) (no date) (unknown) (unknown) Father Alcoholism (units unknown) (unknown) (unknown) (no date) (unknown) (unknown) GEN: no distress (units unknown) (unknown) (unknown) (no date) (unknown) (unknown) Globulin 2.4 (units unknown) (unknown) (unknown) (no date) (unknown) (unknown) Globulin 3.3 (units unknown) (unknown) (unknown) (no date) (unknown) (unknown) Globulin (units unknown) (unknown) (unknown) (no date) (unknown) (unknown) Glucose 84 (units unknown) (unknown) (unknown) (no date) (unknown) (unknown) Glucose 92 (units unknown) (unknown) (unknown) (no date) (unknown) (unknown) Glucose (units unknown) (unknown) (unknown) (no date) (unknown) (unknown) Grandfather Smoker (units unknown) (unknown) (unknown) (no date) (unknown) (unknown) Grandfather Unknown whether patient has any health problems (units unknown) (unknown) (unknown) (no date) (unknown) (unknown) Grandmother Diabetes mellitus (units unknown) (unknown) (unknown) (no date) (unknown) (unknown) Grandmother Hypoglycemia (units unknown) (unknown) (unknown) (no date) (unknown) (unknown) H/O dilation and curettage (-12/14/16) (units unknown) (unknown) (unknown) (no date) (unknown) (unknown) H/O wisdom tooth extraction () (units unknown) (unknown) (unknown) (no date) (unknown) (unknown) HEENT: moist mucous membranes, PERRL (units unknown) (unknown) (unknown) (no date) (unknown) (unknown) Hct 31.4 L (units unknown) (unknown) (unknown) (no date) (unknown) (unknown) Hct 37.0 (units unknown) (unknown) (unknown) (no date) (unknown) (unknown) Hct (units unknown) (unknown) (unknown) (no date) (unknown) (unknown) Hgb 10.1 L (units unknown) (unknown) (unknown) (no date) (unknown) (unknown) Hgb 11.9 L (units unknown) (unknown) (unknown) (no date) (unknown) (unknown) Hgb (units unknown) (unknown) (unknown) (no date) (unknown) (unknown) Insomnia (units unknown) (unknown) (unknown) (no date) (unknown) (unknown) Interval history: (units unknown) (unknown) (unknown) (no date) (unknown) (unknown) [address] [id number] (units unknown) (unknown) (unknown) (no date) (unknown) (unknown) Laboratory Results - last 24 hr (units unknown) (unknown) (unknown) (no date) (unknown) (unknown) Labs (units unknown) (unknown) (unknown) (no date) (unknown) (unknown) Labs: (units unknown) (unknown) (unknown) (no date) (unknown) (unknown) Lipase 408 H (units unknown) (unknown) (unknown) (no date) (unknown) (unknown) Lipase (units unknown) (unknown) (unknown) (no date) (unknown) (unknown) Lymph # (Auto) 2600 (units unknown) (unknown) (unknown) (no date) (unknown) (unknown) Lymph # (Auto) 2800 (units unknown) (unknown) (unknown) (no date) (unknown) (unknown) Lymph # (Auto) (units unknown) (unknown) (unknown) (no date) (unknown) (unknown) Lymph % (Auto) 51.5 H (units unknown) (unknown) (unknown) (no date) (unknown) (unknown) Lymph % (Auto) 54.2 H (units unknown) (unknown) (unknown) (no date) (unknown) (unknown) Lymph % (Auto) (units unknown) (unknown) (unknown) (no date) (unknown) (unknown) MCH 25.4 L (units unknown) (unknown) (unknown) (no date) (unknown) (unknown) MCH 25.7 L (units unknown) (unknown) (unknown) (no date) (unknown) (unknown) MCH (units unknown) (unknown) (unknown) (no date) (unknown) (unknown) MCHC 32.1 (units unknown) (unknown) (unknown) (no date) (unknown) (unknown) MCHC 32.2 (units unknown) (unknown) (unknown) (no date) (unknown) (unknown) MCHC (units unknown) (unknown) (unknown) (no date) (unknown) (unknown) MCV 79.0 L (units unknown) (unknown) (unknown) (no date) (unknown) (unknown) MCV 80.2 (units unknown) (unknown) (unknown) (no date) (unknown) (unknown) MCV (units unknown) (unknown) (unknown) (no date) (unknown) (unknown) Magnesium 2.2 (units unknown) (unknown) (unknown) (no date) (unknown) (unknown) Magnesium (units unknown) (unknown) (unknown) (no date) (unknown) (unknown) Medical History (units unknown) (unknown) (unknown) (no date) (unknown) (unknown) Menometrorrhagia (units unknown) (unknown) (unknown) (no date) (unknown) (unknown) [place] # (Auto) 300 (units unknown) (unknown) (unknown) (no date) (unknown) (unknown) [place] # (Auto) 400 (units unknown) (unknown) (unknown) (no date) (unknown) (unknown) [place] # (Auto) (units unknown) (unknown) (unknown) (no date) (unknown) (unknown) [place] % (Auto) 6.5 (units unknown) (unknown) (unknown) (no date) (unknown) (unknown) [place] % (Auto) 8.6 (units unknown) (unknown) (unknown) (no date) (unknown) (unknown) [place] % (Auto) (units unknown) (unknown) (unknown) (no date) (unknown) (unknown) Mother Diabetes mellitus (units unknown) (unknown) (unknown) (no date) (unknown) (unknown) NECK: trachea midline, no JVD (units unknown) (unknown) (unknown) (no date) (unknown) (unknown) NEURO: awake and alert, no focal deficits (units unknown) (unknown) (unknown) (no date) (unknown) (unknown) Narrative (units unknown) (unknown) (unknown) (no date) (unknown) (unknown) Neut # (Auto) 1900 (units unknown) (unknown) (unknown) (no date) (unknown) (unknown) Neut # (Auto) (units unknown) (unknown) (unknown) (no date) (unknown) (unknown) Neut % (Auto) 36.6 L (units unknown) (unknown) (unknown) (no date) (unknown) (unknown) Neut % (Auto) 36.7 L (units unknown) (unknown) (unknown) (no date) (unknown) (unknown) Neut % (Auto) (units unknown) (unknown) (unknown) (no date) (unknown) (unknown) Obesity (units unknown) (unknown) (unknown) (no date) (unknown) (unknown) Objective (units unknown) (unknown) (unknown) (no date) (unknown) (unknown) Overweight (units unknown) (unknown) (unknown) (no date) (unknown) (unknown) Oxygen Delivery Method Room Air (units unknown) (unknown) (unknown) (no date) (unknown) (unknown) PFSH (units unknown) (unknown) (unknown) (no date) (unknown) (unknown) PULM: clear bilaterally, no wheezes, rhonchi, rales (units unknown) (unknown) (unknown) (no date) (unknown) (unknown) Patient: Sarah Connors MR#: M (units unknown) (unknown) (unknown) (no date) (unknown) (unknown) Plt Count 332 (units unknown) (unknown) (unknown) (no date) (unknown) (unknown) Plt Count 396 (units unknown) (unknown) (unknown) (no date) (unknown) (unknown) Plt Count (units unknown) (unknown) (unknown) (no date) (unknown) (unknown) Potassium 3.5 (units unknown) (unknown) (unknown) (no date) (unknown) (unknown) Potassium 3.6 (units unknown) (unknown) (unknown) (no date) (unknown) (unknown) Potassium (units unknown) (unknown) (unknown) (no date) (unknown) (unknown) Procal negative. WBC negative. Patient now off precedex and awake and alert. She (units unknown) (unknown) (unknown) (no date) (unknown) (unknown) Progress Note (units unknown) (unknown) (unknown) (no date) (unknown) (unknown) Provider: Jabari Sena D.O. (units unknown) (unknown) (unknown) (no date) (unknown) (unknown) Proxy: Rober Connors, spouse (units unknown) (unknown) (unknown) (no date) (unknown) (unknown) Pulse Oximetry 95 95 (units unknown) (unknown) (unknown) (no date) (unknown) (unknown) Pulse Oximetry 95 96 (units unknown) (unknown) (unknown) (no date) (unknown) (unknown) Pulse Oximetry 95 (units unknown) (unknown) (unknown) (no date) (unknown) (unknown) Pulse Oximetry 96 (units unknown) (unknown) (unknown) (no date) (unknown) (unknown) Pulse Oximetry 97 96 (units unknown) (unknown) (unknown) (no date) (unknown) (unknown) Pulse Oximetry 97 (units unknown) (unknown) (unknown) (no date) (unknown) (unknown) Pulse Oximetry 99 99 (units unknown) (unknown) (unknown) (no date) (unknown) (unknown) Pulse Rate 69 72 (units unknown) (unknown) (unknown) (no date) (unknown) (unknown) Pulse Rate 71 (units unknown) (unknown) (unknown) (no date) (unknown) (unknown) Pulse Rate 72 (units unknown) (unknown) (unknown) (no date) (unknown) (unknown) Pulse Rate 75 69 (units unknown) (unknown) (unknown) (no date) (unknown) (unknown) Pulse Rate 75 75 (units unknown) (unknown) (unknown) (no date) (unknown) (unknown) Pulse Rate 75 78 (units unknown) (unknown) (unknown) (no date) (unknown) (unknown) Pulse Rate 75 (units unknown) (unknown) (unknown) (no date) (unknown) (unknown) Pulse Rate 76 71 (units unknown) (unknown) (unknown) (no date) (unknown) (unknown) Pulse Rate 79 76 (units unknown) (unknown) (unknown) (no date) (unknown) (unknown) Quality (units unknown) (unknown) (unknown) (no date) (unknown) (unknown) RBC 3.98 L (units unknown) (unknown) (unknown) (no date) (unknown) (unknown) RBC 4.61 (units unknown) (unknown) (unknown) (no date) (unknown) (unknown) RBC (units unknown) (unknown) (unknown) (no date) (unknown) (unknown) RDW 19.5 H (units unknown) (unknown) (unknown) (no date) (unknown) (unknown) RDW 19.7 H (units unknown) (unknown) (unknown) (no date) (unknown) (unknown) RDW (units unknown) (unknown) (unknown) (no date) (unknown) (unknown) Respiratory Rate 14 16 (units unknown) (unknown) (unknown) (no date) (unknown) (unknown) Respiratory Rate 16 16 (units unknown) (unknown) (unknown) (no date) (unknown) (unknown) Respiratory Rate 18 19 (units unknown) (unknown) (unknown) (no date) (unknown) (unknown) Respiratory Rate 18 (units unknown) (unknown) (unknown) (no date) (unknown) (unknown) Respiratory Rate 19 (units unknown) (unknown) (unknown) (no date) (unknown) (unknown) Respiratory Rate 21 20 (units unknown) (unknown) (unknown) (no date) (unknown) (unknown) Respiratory Rate 27 H (units unknown) (unknown) (unknown) (no date) (unknown) (unknown) Respiratory Rate 34 H 23 (units unknown) (unknown) (unknown) (no date) (unknown) (unknown) Respiratory Rate 37 H 16 (units unknown) (unknown) (unknown) (no date) (unknown) (unknown) Respiratory Rate 37 H (units unknown) (unknown) (unknown) (no date) (unknown) (unknown) S/P myringotomy with insertion of tube (units unknown) (unknown) (unknown) (no date) (unknown) (unknown) SARS-CoV-2 (PCR) Negative (units unknown) (unknown) (unknown) (no date) (unknown) (unknown) SARS-CoV-2 (PCR) (units unknown) (unknown) (unknown) (no date) (unknown) (unknown) (spontaneous vaginal delivery) (-09/05/18) (units unknown) (unknown) (unknown) (no date) (unknown) (unknown) Signed By:<Electronically signed by Jabari Sena D.O.> (units unknown) (unknown) (unknown) (no date) (unknown) (unknown) Smoker (units unknown) (unknown) (unknown) (no date) (unknown) (unknown) Smoking Status: Former smoker (units unknown) (unknown) (unknown) (no date) (unknown) (unknown) Social History (units unknown) (unknown) (unknown) (no date) (unknown) (unknown) Sodium 145 (units unknown) (unknown) (unknown) (no date) (unknown) (unknown) Sodium 148 H D (units unknown) (unknown) (unknown) (no date) (unknown) (unknown) Sodium (units unknown) (unknown) (unknown) (no date) (unknown) (unknown) Subjective (units unknown) (unknown) (unknown) (no date) (unknown) (unknown) Surgical History (units unknown) (unknown) (unknown) (no date) (unknown) (unknown) Temperature 98.6 F (units unknown) (unknown) (unknown) (no date) (unknown) (unknown) Temperature (units unknown) (unknown) (unknown) (no date) (unknown) (unknown) Total Bilirubin 0.3 (units unknown) (unknown) (unknown) (no date) (unknown) (unknown) Total Bilirubin 0.4 (units unknown) (unknown) (unknown) (no date) (unknown) (unknown) Total Bilirubin (units unknown) (unknown) (unknown) (no date) (unknown) (unknown) Total Protein 6.0 L (units unknown) (unknown) (unknown) (no date) (unknown) (unknown) Total Protein 7.7 (units unknown) (unknown) (unknown) (no date) (unknown) (unknown) Total Protein (units unknown) (unknown) (unknown) (no date) (unknown) (unknown) Toxic metabolic encephalopathy, secondary to etoh withdrawal and phenobarbital (units unknown) (unknown) (unknown) (no date) (unknown) (unknown) U Benzodiazepines Scrn Positive H (units unknown) (unknown) (unknown) (no date) (unknown) (unknown) U Benzodiazepines Scrn (units unknown) (unknown) (unknown) (no date) (unknown) (unknown) U Marijuana (THC) Screen Negative (units unknown) (unknown) (unknown) (no date) (unknown) (unknown) U Marijuana (THC) Screen (units unknown) (unknown) (unknown) (no date) (unknown) (unknown) U Methamphetamines Scrn Negative (units unknown) (unknown) (unknown) (no date) (unknown) (unknown) U Methamphetamines Scrn (units unknown) (unknown) (unknown) (no date) (unknown) (unknown) U Opiates 300ng/mL cut Negative (units unknown) (unknown) (unknown) (no date) (unknown) (unknown) U Opiates 300ng/mL cut (units unknown) (unknown) (unknown) (no date) (unknown) (unknown) U Tricyclic Antidepress Positive H (units unknown) (unknown) (unknown) (no date) (unknown) (unknown) U Tricyclic Antidepress (units unknown) (unknown) (unknown) (no date) (unknown) (unknown) Unconjugated Bilirubin 0.0 (units unknown) (unknown) (unknown) (no date) (unknown) (unknown) Unconjugated Bilirubin (units unknown) (unknown) (unknown) (no date) (unknown) (unknown) Ur Amphetamines Screen Negative (units unknown) (unknown) (unknown) (no date) (unknown) (unknown) Ur Amphetamines Screen (units unknown) (unknown) (unknown) (no date) (unknown) (unknown) Ur Barbiturates Screen Positive H (units unknown) (unknown) (unknown) (no date) (unknown) (unknown) Ur Barbiturates Screen (units unknown) (unknown) (unknown) (no date) (unknown) (unknown) Ur Culture Indicated ? Specimen cultured (units unknown) (unknown) (unknown) (no date) (unknown) (unknown) Ur Culture Indicated? (units unknown) (unknown) (unknown) (no date) (unknown) (unknown) Ur Leukocyte Ester[place] e 1+ H (units unknown) (unknown) (unknown) (no date) (unknown) (unknown) Ur Leukocyte Esterase (units unknown) (unknown) (unknown) (no date) (unknown) (unknown) Ur MDMA Scrn (Ecstasy) Negative (units unknown) (unknown) (unknown) (no date) (unknown) (unknown) Ur MDMA Scrn (Ecstasy) (units unknown) (unknown) (unknown) (no date) (unknown) (unknown) Ur Oxycodone Screen Negative (units unknown) (unknown) (unknown) (no date) (unknown) (unknown) Ur Oxycodone Screen (units unknown) (unknown) (unknown) (no date) (unknown) (unknown) Ur Phencyclidine Scr n Negative (units unknown) (unknown) (unknown) (no date) (unknown) (unknown) Ur Phencyclidine Scrn (units unknown) (unknown) (unknown) (no date) (unknown) (unknown) Ur Specific [place] 1.015 (units unknown) (unknown) (unknown) (no date) (unknown) (unknown) Ur Specific [place] (units unknown) (unknown) (unknown) (no date) (unknown) (unknown) Urine Appearance Clear (units unknown) (unknown) (unknown) (no date) (unknown) (unknown) Urine Appearance (units unknown) (unknown) (unknown) (no date) (unknown) (unknown) Urine Bacteria Many (>30) H (units unknown) (unknown) (unknown) (no date) (unknown) (unknown) Urine Bacteria (units unknown) (unknown) (unknown) (no date) (unknown) (unknown) Urine Bilirubin Negative (units unknown) (unknown) (unknown) (no date) (unknown) (unknown) Urine Bilirubin (units unknown) (unknown) (unknown) (no date) (unknown) (unknown) Urine Cocaine Screen Negative (units unknown) (unknown) (unknown) (no date) (unknown) (unknown) Urine Cocaine Screen (units unknown) (unknown) (unknown) (no date) (unknown) (unknown) Urine Color Yellow (units unknown) (unknown) (unknown) (no date) (unknown) (unknown) Urine Color (units unknown) (unknown) (unknown) (no date) (unknown) (unknown) Urine Glucose (UA) Negative (units unknown) (unknown) (unknown) (no date) (unknown) (unknown) Urine Glucose (UA) (units unknown) (unknown) (unknown) (no date) (unknown) (unknown) Urine Ketones Negative (units unknown) (unknown) (unknown) (no date) (unknown) (unknown) Urine Ketones (units unknown) (unknown) (unknown) (no date) (unknown) (unknown) Urine Methadone Screen Negative (units unknown) (unknown) (unknown) (no date) (unknown) (unknown) Urine Methadone Screen (units unknown) (unknown) (unknown) (no date) (unknown) (unknown) Urine Nitrate Positive H (units unknown) (unknown) (unknown) (no date) (unknown) (unknown) Urine Nitrate (units unknown) (unknown) (unknown) (no date) (unknown) (unknown) Urine Occult Blood Negative (units unknown) (unknown) (unknown) (no date) (unknown) (unknown) Urine Occult Blood (units unknown) (unknown) (unknown) (no date) (unknown) (unknown) Urine Test Negative (units unknown) (unknown) (unknown) (no date) (unknown) (unknown) Urine Test (units unknown) (unknown) (unknown) (no date) (unknown) (unknown) Urine Protein Negative (units unknown) (unknown) (unknown) (no date) (unknown) (unknown) Urine Protein (units unknown) (unknown) (unknown) (no date) (unknown) (unknown) Urine RBC None seen (units unknown) (unknown) (unknown) (no date) (unknown) (unknown) Urine RBC (units unknown) (unknown) (unknown) (no date) (unknown) (unknown) Urine Urobilinogen 0.2 (units unknown) (unknown) (unknown) (no date) (unknown) (unknown) Urine Urobilinogen (units unknown) (unknown) (unknown) (no date) (unknown) (unknown) Urine WBC 10-30/hpf H (units unknown) (unknown) (unknown) (no date) (unknown) (unknown) Urine WBC (units unknown) (unknown) (unknown) (no date) (unknown) (unknown) Urine pH 6.0 (units unknown) (unknown) (unknown) (no date) (unknown) (unknown) Urine pH (units unknown) (unknown) (unknown) (no date) (unknown) (unknown) VTE (units unknown) (unknown) (unknown) (no date) (unknown) (unknown) Vital Signs (units unknown) (unknown) (unknown) (no date) (unknown) (unknown) WBC 5.1 (units unknown) (unknown) (unknown) (no date) (unknown) (unknown) WBC 5.2 (units unknown) (unknown) (unknown) (no date) (unknown) (unknown) WBC (units unknown) (unknown) (unknown) (no date) (unknown) (unknown) [Embedded Image Not Available] (units unknown) (unknown) (unknown) (no date) (unknown) (unknown) alcohol intake: current (units unknown) (unknown) (unknown) (no date) (unknown) (unknown) current occupational exposures/hazards: Yes (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 with Pandemic ) (units unknown) (unknown) (unknown) (no date) (unknown) (unknown) education level: college 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 (units unknown) (unknown) (unknown) (no date) (unknown) (unknown) household members: significant other (units unknown) (unknown) (unknown) (no date) (unknown) (unknown) marital status: (units unknown) (unknown) (unknown) (no date) (unknown) (unknown) month (units unknown) (unknown) (unknown) (no date) (unknown) (unknown) number of children: 1 (units unknown) (unknown) (unknown) (no date) (unknown) (unknown) occupational status: employed (units unknown) (unknown) (unknown) (no date) (unknown) (unknown) second hand exposure : No (growing up as a child - not currently) (units unknown) (unknown) (unknown) (no date) (unknown) (unknown) special renee needs: No (units unknown) (unknown) (unknown) (no date) (unknown) (unknown) substance use type: does not use (units unknown) (unknown) Result panel 2309 (unknown) (no date) (unknown) (unknown) (no value) (units unknown) (unknown) (unknown) (no date) (unknown) (unknown) (past 8 hours): (units unknown) (unknown) (unknown) (no date) (unknown) (unknown) -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 (units unknown) (unknown) (unknown) (no date) (unknown) (unknown) -UA with pyuria (units unknown) (unknown) (unknown) (no date) (unknown) (unknown) -continue PPI (units unknown) (unknown) (unknown) (no date) (unknown) (unknown) -continue ciwa protocol, with ativan, librium 50mg q6 (units unknown) (unknown) (unknown) (no date) (unknown) (unknown) -continue prozac (units unknown) (unknown) (unknown) (no date) (unknown) (unknown) -continue to trend (units unknown) (unknown) (unknown) (no date) (unknown) (unknown) -each time she has refused rehab (units unknown) (unknown) (unknown) (no date) (unknown) (unknown) -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 (units unknown) (unknown) (unknown) (no date) (unknown) (unknown) -likely secondary to inadequate PO intake due to alcoholism (units unknown) (unknown) (unknown) (no date) (unknown) (unknown) -multiple admissions and hospital visits for alcohol withdrawal within the last (units unknown) (unknown) (unknown) (no date) (unknown) (unknown) -now off precedex (units unknown) (unknown) (unknown) (no date) (unknown) (unknown) -ordered for high dose thiamine for prevention/treatment of wernicke's (units unknown) (unknown) (unknown) (no date) (unknown) (unknown) -per ED she is requesting detox after drinking heavily after discharge (units unknown) (unknown) (unknown) (no date) (unknown) (unknown) -per ED she was hallucinating and agitated on arrival, received phenobarbital (units unknown) (unknown) (unknown) (no date) (unknown) (unknown) -rocephin x3 days (units unknown) (unknown) (unknown) (no date) (unknown) (unknown) -she was just discharged 5 days ago, refusing rehab (units unknown) (unknown) (unknown) (no date) (unknown) (unknown) -suspect secondary t o alcohol withdrawal and phenobarbital and treat as above (units unknown) (unknown) (unknown) (no date) (unknown) (unknown) -trend daily (units unknown) (unknown) (unknown) (no date) (unknown) (unknown) [id number] (units unknown) (unknown) (unknown) (no date) (unknown) (unknown) 08/08/22 08/08/22 08/08/22 (units unknown) (unknown) (unknown) (no date) (unknown) (unknown) 08/08/22 08/08/22 08/09/22 (units unknown) (unknown) (unknown) (no date) (unknown) (unknown) 08/08/22 22:04 (units unknown) (unknown) (unknown) (no date) (unknown) (unknown) 08/08/22 22:48 (units unknown) (unknown) (unknown) (no date) (unknown) (unknown) 08/09/22 08/09/22 08/09/22 (units unknown) (unknown) (unknown) (no date) (unknown) (unknown) 08/09/22 08/09/22 (units unknown) (unknown) (unknown) (no date) (unknown) (unknown) 08/09/22 04:16 (units unknown) (unknown) (unknown) (no date) (unknown) (unknown) 08/09/22 07:23 (units unknown) (unknown) (unknown) (no date) (unknown) (unknown) 08/09/22 (units unknown) (unknown) (unknown) (no date) (unknown) (unknown) 04:16 04:16 04:30 (units unknown) (unknown) (unknown) (no date) (unknown) (unknown) 04:30 04:30 09:00 (units unknown) (unknown) (unknown) (no date) (unknown) (unknown) 09:00 11:45 (units unknown) (unknown) (unknown) (no date) (unknown) (unknown) 1. Acute alcohol withdrawal with DTs, improving (units unknown) (unknown) (unknown) (no date) (unknown) (unknown) 10:00 08/09/22 (units unknown) (unknown) (unknown) (no date) (unknown) (unknown) 11:00 08/09/22 (units unknown) (unknown) (unknown) (no date) (unknown) (unknown) 11:00 (units unknown) (unknown) (unknown) (no date) (unknown) (unknown) 12:00 08/09/22 (units unknown) (unknown) (unknown) (no date) (unknown) (unknown) 12:00 (units unknown) (unknown) (unknown) (no date) (unknown) (unknown) 12:02 08/09/22 (units unknown) (unknown) (unknown) (no date) (unknown) (unknown) 13:00 08/09/22 (units unknown) (unknown) (unknown) (no date) (unknown) (unknown) 13:00 (units unknown) (unknown) (unknown) (no date) (unknown) (unknown) 13:29 08/09/22 (units unknown) (unknown) (unknown) (no date) (unknown) (unknown) 14:00 08/09/22 (units unknown) (unknown) (unknown) (no date) (unknown) (unknown) 14:00 (units unknown) (unknown) (unknown) (no date) (unknown) (unknown) 14:07 08/09/22 (units unknown) (unknown) (unknown) (no date) (unknown) (unknown) 15:00 08/09/22 (units unknown) (unknown) (unknown) (no date) (unknown) (unknown) 15:00 (units unknown) (unknown) (unknown) (no date) (unknown) (unknown) 16:00 (units unknown) (unknown) (unknown) (no date) (unknown) (unknown) 16:15 08/09/22 (units unknown) (unknown) (unknown) (no date) (unknown) (unknown) 2. Acute encephalopathy, resolved (units unknown) (unknown) (unknown) (no date) (unknown) (unknown) 21:00 21:00 21:00 (units unknown) (unknown) (unknown) (no date) (unknown) (unknown) 21:00 22:30 04:16 (units unknown) (unknown) (unknown) (no date) (unknown) (unknown) 3. Hypernatremia, resolved (units unknown) (unknown) (unknown) (no date) (unknown) (unknown) 300 mg PO DAILY (units unknown) (unknown) (unknown) (no date) (unknown) (unknown) 4. Depression and anxiety (units unknown) (unknown) (unknown) (no date) (unknown) (unknown) 5. Anemia, chronic (units unknown) (unknown) (unknown) (no date) (unknown) (unknown) 50 mg PO PRN PRN (Reason: Anxiety) (units unknown) (unknown) (unknown) (no date) (unknown) (unknown) 6. GERD (units unknown) (unknown) (unknown) (no date) (unknown) (unknown) 7. UTI (units unknown) (unknown) (unknown) (no date) (unknown) (unknown) ABD: soft, nontender , nondistended, no organomegaly (units unknown) (unknown) (unknown) (no date) (unknown) (unknown) ALT 51 H (units unknown) (unknown) (unknown) (no date) (unknown) (unknown) ALT 64 H (units unknown) (unknown) (unknown) (no date) (unknown) (unknown) ALT (units unknown) (unknown) (unknown) (no date) (unknown) (unknown) AST 288 H (units unknown) (unknown) (unknown) (no date) (unknown) (unknown) AST 424 H (units unknown) (unknown) (unknown) (no date) (unknown) (unknown) AST (units unknown) (unknown) (unknown) (no date) (unknown) (unknown) Age/Sex: 31 / F (units unknown) (unknown) (unknown) (no date) (unknown) (unknown) Albumin 3.6 (units unknown) (unknown) (unknown) (no date) (unknown) (unknown) Albumin 4.4 (units unknown) (unknown) (unknown) (no date) (unknown) (unknown) Albumin (units unknown) (unknown) (unknown) (no date) (unknown) (unknown) Albumin/Globulin Ratio 1.3 (units unknown) (unknown) (unknown) (no date) (unknown) (unknown) Albumin/Globulin Ratio 1.5 (units unknown) (unknown) (unknown) (no date) (unknown) (unknown) Albumin/Globulin Ratio (units unknown) (unknown) (unknown) (no date) (unknown) (unknown) Alcohol withdrawal delirium, acute, hyperactive (units unknown) (unknown) (unknown) (no date) (unknown) (unknown) Alcoholism (units unknown) (unknown) (unknown) (no date) (unknown) (unknown) Alkaline Phosphatase 59 (units unknown) (unknown) (unknown) (no date) (unknown) (unknown) Alkaline Phosphatase 71 (units unknown) (unknown) (unknown) (no date) (unknown) (unknown) Alkaline Phosphatase (units unknown) (unknown) (unknown) (no date) (unknown) (unknown) Anemia (-2018) (units unknown) (unknown) (unknown) (no date) (unknown) (unknown) BUN 7 (units unknown) (unknown) (unknown) (no date) (unknown) (unknown) BUN 8 (units unknown) (unknown) (unknown) (no date) (unknown) (unknown) BUN (units unknown) (unknown) (unknown) (no date) (unknown) (unknown) BUN/Creatinine Ratio 8.9 (units unknown) (unknown) (unknown) (no date) (unknown) (unknown) BUN/Creatinine Ratio 9.2 (units unknown) (unknown) (unknown) (no date) (unknown) (unknown) BUN/Creatinine Ratio (units unknown) (unknown) (unknown) (no date) (unknown) (unknown) Baso # (Auto) 100 (units unknown) (unknown) (unknown) (no date) (unknown) (unknown) Baso # (Auto) (units unknown) (unknown) (unknown) (no date) (unknown) (unknown) Baso % (Auto) 1.9 (units unknown) (unknown) (unknown) (no date) (unknown) (unknown) Baso % (Auto) 2.5 H (units unknown) (unknown) (unknown) (no date) (unknown) (unknown) Baso % (Auto) (units unknown) (unknown) (unknown) (no date) (unknown) (unknown) Blood Pressure 100/5 6 L (units unknown) (unknown) (unknown) (no date) (unknown) (unknown) Blood Pressure 102/6 4 88/59 L (units unknown) (unknown) (unknown) (no date) (unknown) (unknown) Blood Pressure 102/64 (units unknown) (unknown) (unknown) (no date) (unknown) (unknown) Blood Pressure 93/59 L 93/59 L (units unknown) (unknown) (unknown) (no date) (unknown) (unknown) Blood Pressure 97/64 119/65 (units unknown) (unknown) (unknown) (no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 Labs notable for WBC 5.1, hgb 11.9. Na 148, (units unknown) (unknown) (unknown) (no date) (unknown) (unknown) household members: significant other (units unknown) (unknown) (unknown) (no date) (unknown) (unknown) hydroxyzine HCl 50 m g tablet (units unknown) (unknown) (unknown) (no date) (unknown) (unknown) marital status: (units unknown) (unknown) (unknown) (no date) (unknown) (unknown) month (units unknown) (unknown) (unknown) (no date) (unknown) (unknown) number of children: 1 (units unknown) (unknown) (unknown) (no date) (unknown) (unknown) occupational status: employed (units unknown) (unknown) (unknown) (no date) (unknown) (unknown) pending. She is admitted for further treatment. (units unknown) (unknown) (unknown) (no date) (unknown) (unknown) prior to multiple recent visits to this hospital. This is now her fourth visit (units unknown) (unknown) (unknown) (no date) (unknown) (unknown) quetiapine 300 mg tablet (units unknown) (unknown) (unknown) (no date) (unknown) (unknown) second hand exposure : No (growing up as a child - not currently) (units unknown) (unknown) (unknown) (no date) (unknown) (unknown) significant alcohol withdrawal, DTs, requiring precedex drip and ICU monitoring. (units unknown) (unknown) (unknown) (no date) (unknown) (unknown) special renee needs: No (units unknown) (unknown) (unknown) (no date) (unknown) (unknown) substance use type: does not use (units unknown) (unknown) (unknown) (no date) (unknown) (unknown) this month for intoxication. She has previously been admitted and developed (units unknown) (unknown) (unknown) (no date) (unknown) (unknown) this with me as lenny n she is sleeping and sedated. UA and urine drug screen (units unknown) (unknown) (unknown) (no date) (unknown) (unknown) to get a history. Alexandria ferreira has many admissions for alcohol rehab and had one recently (units unknown) (unknown) (unknown) (no date) (unknown) (unknown) to the hospital intoxicated. Patient is sedated when I see her and I am unable (units unknown) (unknown) (unknown) (no date) (unknown) (unknown) was given phenobarbital. When I see her she is sleeping soundly. Vitals notable (units unknown) (unknown) Result panel 2310 (unknown) (no date) (unknown) (unknown) (no value) (units unknown) (unknown) (unknown) (no date) (unknown) (unknown) (past 8 hours): (units unknown) (unknown) (unknown) (no date) (unknown) (unknown) -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 (units unknown) (unknown) (unknown) (no date) (unknown) (unknown) -UA with pyuria (units unknown) (unknown) (unknown) (no date) (unknown) (unknown) -continue PPI (units unknown) (unknown) (unknown) (no date) (unknown) (unknown) -continue ciwa protocol, with ativan, librium 50mg q6 (units unknown) (unknown) (unknown) (no date) (unknown) (unknown) -continue prozac (units unknown) (unknown) (unknown) (no date) (unknown) (unknown) -continue to trend (units unknown) (unknown) (unknown) (no date) (unknown) (unknown) -each time she has refused rehab (units unknown) (unknown) (unknown) (no date) (unknown) (unknown) -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 (units unknown) (unknown) (unknown) (no date) (unknown) (unknown) -likely secondary to inadequate PO intake due to alcoholism (units unknown) (unknown) (unknown) (no date) (unknown) (unknown) -multiple admissions and hospital visits for alcohol withdrawal within the last (units unknown) (unknown) (unknown) (no date) (unknown) (unknown) -now off precedex (units unknown) (unknown) (unknown) (no date) (unknown) (unknown) -ordered for high dose thiamine for prevention/treatment of wernicke's (units unknown) (unknown) (unknown) (no date) (unknown) (unknown) -per ED she is requesting detox after drinking heavily after discharge (units unknown) (unknown) (unknown) (no date) (unknown) (unknown) -per ED she was hallucinating and agitated on arrival, received phenobarbital (units unknown) (unknown) (unknown) (no date) (unknown) (unknown) -rocephin x3 days (units unknown) (unknown) (unknown) (no date) (unknown) (unknown) -she was just discharged 5 days ago, refusing rehab (units unknown) (unknown) (unknown) (no date) (unknown) (unknown) -suspect secondary t o alcohol withdrawal and phenobarbital and treat as above (units unknown) (unknown) (unknown) (no date) (unknown) (unknown) -trend daily (units unknown) (unknown) (unknown) (no date) (unknown) (unknown) [id number] (units unknown) (unknown) (unknown) (no date) (unknown) (unknown) 08/08/22 08/08/22 08/08/22 (units unknown) (unknown) (unknown) (no date) (unknown) (unknown) 08/08/22 08/08/22 08/09/22 (units unknown) (unknown) (unknown) (no date) (unknown) (unknown) 08/08/22 22:04 (units unknown) (unknown) (unknown) (no date) (unknown) (unknown) 08/08/22 22:48 (units unknown) (unknown) (unknown) (no date) (unknown) (unknown) 08/09/22 08/09/22 08/09/22 (units unknown) (unknown) (unknown) (no date) (unknown) (unknown) 08/09/22 08/09/22 (units unknown) (unknown) (unknown) (no date) (unknown) (unknown) 08/09/22 04:16 (units unknown) (unknown) (unknown) (no date) (unknown) (unknown) 08/09/22 07:23 (units unknown) (unknown) (unknown) (no date) (unknown) (unknown) 08/09/22 (units unknown) (unknown) (unknown) (no date) (unknown) (unknown) 04:16 04:16 04:30 (units unknown) (unknown) (unknown) (no date) (unknown) (unknown) 04:30 04:30 09:00 (units unknown) (unknown) (unknown) (no date) (unknown) (unknown) 09:00 11:45 (units unknown) (unknown) (unknown) (no date) (unknown) (unknown) 1. Acute alcohol withdrawal with DTs, improving (units unknown) (unknown) (unknown) (no date) (unknown) (unknown) 10:00 08/09/22 (units unknown) (unknown) (unknown) (no date) (unknown) (unknown) 11:00 08/09/22 (units unknown) (unknown) (unknown) (no date) (unknown) (unknown) 11:00 (units unknown) (unknown) (unknown) (no date) (unknown) (unknown) 12:00 08/09/22 (units unknown) (unknown) (unknown) (no date) (unknown) (unknown) 12:00 (units unknown) (unknown) (unknown) (no date) (unknown) (unknown) 12:02 08/09/22 (units unknown) (unknown) (unknown) (no date) (unknown) (unknown) 13:00 08/09/22 (units unknown) (unknown) (unknown) (no date) (unknown) (unknown) 13:00 (units unknown) (unknown) (unknown) (no date) (unknown) (unknown) 13:29 08/09/22 (units unknown) (unknown) (unknown) (no date) (unknown) (unknown) 14:00 08/09/22 (units unknown) (unknown) (unknown) (no date) (unknown) (unknown) 14:00 (units unknown) (unknown) (unknown) (no date) (unknown) (unknown) 14:07 08/09/22 (units unknown) (unknown) (unknown) (no date) (unknown) (unknown) 15:00 08/09/22 (units unknown) (unknown) (unknown) (no date) (unknown) (unknown) 15:00 (units unknown) (unknown) (unknown) (no date) (unknown) (unknown) 16:00 (units unknown) (unknown) (unknown) (no date) (unknown) (unknown) 16:15 08/09/22 (units unknown) (unknown) (unknown) (no date) (unknown) (unknown) 2. Acute encephalopathy, resolved (units unknown) (unknown) (unknown) (no date) (unknown) (unknown) 21:00 21:00 21:00 (units unknown) (unknown) (unknown) (no date) (unknown) (unknown) 21:00 22:30 04:16 (units unknown) (unknown) (unknown) (no date) (unknown) (unknown) 3. Hypernatremia, resolved (units unknown) (unknown) (unknown) (no date) (unknown) (unknown) 300 mg PO DAILY (units unknown) (unknown) (unknown) (no date) (unknown) (unknown) 4. Depression and anxiety (units unknown) (unknown) (unknown) (no date) (unknown) (unknown) 5. Anemia, chronic (units unknown) (unknown) (unknown) (no date) (unknown) (unknown) 50 mg PO PRN PRN (Reason: Anxiety) (units unknown) (unknown) (unknown) (no date) (unknown) (unknown) 6. GERD (units unknown) (unknown) (unknown) (no date) (unknown) (unknown) 7. UTI (units unknown) (unknown) (unknown) (no date) (unknown) (unknown) ABD: soft, nontender , nondistended, no organomegaly (units unknown) (unknown) (unknown) (no date) (unknown) (unknown) ALT 51 H (units unknown) (unknown) (unknown) (no date) (unknown) (unknown) ALT 64 H (units unknown) (unknown) (unknown) (no date) (unknown) (unknown) ALT (units unknown) (unknown) (unknown) (no date) (unknown) (unknown) AST 288 H (units unknown) (unknown) (unknown) (no date) (unknown) (unknown) AST 424 H (units unknown) (unknown) (unknown) (no date) (unknown) (unknown) AST (units unknown) (unknown) (unknown) (no date) (unknown) (unknown) Age/Sex: 31 / F (units unknown) (unknown) (unknown) (no date) (unknown) (unknown) Albumin 3.6 (units unknown) (unknown) (unknown) (no date) (unknown) (unknown) Albumin 4.4 (units unknown) (unknown) (unknown) (no date) (unknown) (unknown) Albumin (units unknown) (unknown) (unknown) (no date) (unknown) (unknown) Albumin/Globulin Ratio 1.3 (units unknown) (unknown) (unknown) (no date) (unknown) (unknown) Albumin/Globulin Ratio 1.5 (units unknown) (unknown) (unknown) (no date) (unknown) (unknown) Albumin/Globulin Ratio (units unknown) (unknown) (unknown) (no date) (unknown) (unknown) Alcohol withdrawal delirium, acute, hyperactive (units unknown) (unknown) (unknown) (no date) (unknown) (unknown) Alcoholism (units unknown) (unknown) (unknown) (no date) (unknown) (unknown) Alkaline Phosphatase 59 (units unknown) (unknown) (unknown) (no date) (unknown) (unknown) Alkaline Phosphatase 71 (units unknown) (unknown) (unknown) (no date) (unknown) (unknown) Alkaline Phosphatase (units unknown) (unknown) (unknown) (no date) (unknown) (unknown) Anemia (-2018) (units unknown) (unknown) (unknown) (no date) (unknown) (unknown) BUN 7 (units unknown) (unknown) (unknown) (no date) (unknown) (unknown) BUN 8 (units unknown) (unknown) (unknown) (no date) (unknown) (unknown) BUN (units unknown) (unknown) (unknown) (no date) (unknown) (unknown) BUN/Creatinine Ratio 8.9 (units unknown) (unknown) (unknown) (no date) (unknown) (unknown) BUN/Creatinine Ratio 9.2 (units unknown) (unknown) (unknown) (no date) (unknown) (unknown) BUN/Creatinine Ratio (units unknown) (unknown) (unknown) (no date) (unknown) (unknown) Baso # (Auto) 100 (units unknown) (unknown) (unknown) (no date) (unknown) (unknown) Baso # (Auto) (units unknown) (unknown) (unknown) (no date) (unknown) (unknown) Baso % (Auto) 1.9 (units unknown) (unknown) (unknown) (no date) (unknown) (unknown) Baso % (Auto) 2.5 H (units unknown) (unknown) (unknown) (no date) (unknown) (unknown) Baso % (Auto) (units unknown) (unknown) (unknown) (no date) (unknown) (unknown) Blood Pressure 100/5 6 L (units unknown) (unknown) (unknown) (no date) (unknown) (unknown) Blood Pressure 102/6 4 88/59 L (units unknown) (unknown) (unknown) (no date) (unknown) (unknown) Blood Pressure 102/64 (units unknown) (unknown) (unknown) (no date) (unknown) (unknown) Blood Pressure 93/59 L 93/59 L (units unknown) (unknown) (unknown) (no date) (unknown) (unknown) Blood Pressure 97/64 119/65 (units unknown) (unknown) (unknown) (no date) (unknown) (unknown) Blood Pressure 98/61 101/54 L (units unknown) (unknown) (unknown) (no date) (unknown) (unknown) Blood Pressure (units unknown) (unknown) (unknown) (no date) (unknown) (unknown) CV: regular rate and rhythm, no murmurs (units unknown) (unknown) (unknown) (no date) (unknown) (unknown) Calcium 7.7 L (units unknown) (unknown) (unknown) (no date) (unknown) (unknown) Calcium 8.4 (units unknown) (unknown) (unknown) (no date) (unknown) (unknown) Calcium (units unknown) (unknown) (unknown) (no date) (unknown) (unknown) Carbon Dioxide 30 (units unknown) (unknown) (unknown) (no date) (unknown) (unknown) Carbon Dioxide 33 H (units unknown) (unknown) (unknown) (no date) (unknown) (unknown) Carbon Dioxide (units unknown) (unknown) (unknown) (no date) (unknown) (unknown) Chief complaint: needs to detox (units unknown) (unknown) (unknown) (no date) (unknown) (unknown) Chloride 104 (units unknown) (unknown) (unknown) (no date) (unknown) (unknown) Chloride 107 (units unknown) (unknown) (unknown) (no date) (unknown) (unknown) Chloride (units unknown) (unknown) (unknown) (no date) (unknown) (unknown) Comment: needs inpatient treatment for EtOH (units unknown) (unknown) (unknown) (no date) (unknown) (unknown) Comment: (units unknown) (unknown) (unknown) (no date) (unknown) (unknown) Conjugated Bilirubin 0.0 (units unknown) (unknown) (unknown) (no date) (unknown) (unknown) Conjugated Bilirubin (units unknown) (unknown) (unknown) (no date) (unknown) (unknown) Consult to [facility] [place] - 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 (units unknown) (unknown) (unknown) (no date) (unknown) (unknown) Consult to 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 (units unknown) (unknown) (unknown) (no date) (unknown) (unknown) Consulting Provider: [facility] [employer] (units unknown) (unknown) (unknown) (no date) (unknown) (unknown) Consults: (units unknown) (unknown) (unknown) (no date) (unknown) (unknown) Continued (units unknown) (unknown) (unknown) (no date) (unknown) (unknown) Creatinine 0.76 (units unknown) (unknown) (unknown) (no date) (unknown) (unknown) Creatinine 0.90 (units unknown) (unknown) (unknown) (no date) (unknown) (unknown) Creatinine (units unknown) (unknown) (unknown) (no date) (unknown) (unknown) : 1990 Acct:[id number] (units unknown) (unknown) (unknown) (no date) (unknown) (unknown) Date Patient Seen: 08/09/22 (units unknown) (unknown) (unknown) (no date) (unknown) (unknown) Date of Service: 08/08/22 (units unknown) (unknown) (unknown) (no date) (unknown) (unknown) Date of admission: (units unknown) (unknown) (unknown) (no date) (unknown) (unknown) Deep Vein Thrombosis/Pulmonary Embolism Present on Admission: No (units unknown) (unknown) (unknown) (no date) (unknown) (unknown) Discharge Data (units unknown) (unknown) (unknown) (no date) (unknown) (unknown) Discharge Date: 08/09/22 (units unknown) (unknown) (unknown) (no date) (unknown) (unknown) Discharge Diagnosis: (units unknown) (unknown) (unknown) (no date) (unknown) (unknown) Discharge Plan (units unknown) (unknown) (unknown) (no date) (unknown) (unknown) Discharge Providers (units unknown) (unknown) (unknown) (no date) (unknown) (unknown) Discharge Summary (units unknown) (unknown) (unknown) (no date) (unknown) (unknown) Discharge orders + Medications (units unknown) (unknown) (unknown) (no date) (unknown) (unknown) Discharge provider: (units unknown) (unknown) (unknown) (no date) (unknown) (unknown) EXT: warm and well perfused with no edema (units unknown) (unknown) (unknown) (no date) (unknown) (unknown) Each time she has refused further treatment to rehab upon discharge. Her last (units unknown) (unknown) (unknown) (no date) (unknown) (unknown) Eos # (Auto) 0 (units unknown) (unknown) (unknown) (no date) (unknown) (unknown) Eos # (Auto) (units unknown) (unknown) (unknown) (no date) (unknown) (unknown) Eos % (Auto) 0.7 L (units unknown) (unknown) (unknown) (no date) (unknown) (unknown) Eos % (Auto) 0.8 L (units unknown) (unknown) (unknown) (no date) (unknown) (unknown) Eos % (Auto) (units unknown) (unknown) (unknown) (no date) (unknown) (unknown) Estimated GFR > 60 (units unknown) (unknown) (unknown) (no date) (unknown) (unknown) Estimated GFR (units unknown) (unknown) (unknown) (no date) (unknown) (unknown) Ethyl Alcohol 393 H (units unknown) (unknown) (unknown) (no date) (unknown) (unknown) Ethyl Alcohol (units unknown) (unknown) (unknown) (no date) (unknown) (unknown) Exam Narrative: (units unknown) (unknown) (unknown) (no date) (unknown) (unknown) Exam (units unknown) (unknown) (unknown) (no date) (unknown) (unknown) Family History (units unknown) (unknown) (unknown) (no date) (unknown) (unknown) Family/Other Alcoholism (units unknown) (unknown) (unknown) (no date) (unknown) (unknown) Family/Other Diabete s mellitus (units unknown) (unknown) (unknown) (no date) (unknown) (unknown) Father Alcoholism (units unknown) (unknown) (unknown) (no date) (unknown) (unknown) Tonia Schneider MD [Primary Care Provider] (units unknown) (unknown) (unknown) (no date) (unknown) (unknown) Follow up/Referrals: (units unknown) (unknown) (unknown) (no date) (unknown) (unknown) GEN: no distress, no tremors (units unknown) (unknown) (unknown) (no date) (unknown) (unknown) Globulin 2.4 (units unknown) (unknown) (unknown) (no date) (unknown) (unknown) Globulin 3.3 (units unknown) (unknown) (unknown) (no date) (unknown) (unknown) Globulin (units unknown) (unknown) (unknown) (no date) (unknown) (unknown) Glucose 84 (units unknown) (unknown) (unknown) (no date) (unknown) (unknown) Glucose 92 (units unknown) (unknown) (unknown) (no date) (unknown) (unknown) Glucose (units unknown) (unknown) (unknown) (no date) (unknown) (unknown) Grandfather Smoker (units unknown) (unknown) (unknown) (no date) (unknown) (unknown) Grandfather Unknown whether patient has any health problems (units unknown) (unknown) (unknown) (no date) (unknown) (unknown) Grandmother Diabetes mellitus (units unknown) (unknown) (unknown) (no date) (unknown) (unknown) Grandmother Hypoglycemia (units unknown) (unknown) (unknown) (no date) (unknown) (unknown) H/O dilation and curettage (-12/14/16) (units unknown) (unknown) (unknown) (no date) (unknown) (unknown) H/O wisdom tooth extraction () (units unknown) (unknown) (unknown) (no date) (unknown) (unknown) HEENT: moist mucous membranes, PERRL (units unknown) (unknown) (unknown) (no date) (unknown) (unknown) Has provider been notified: Yes (units unknown) (unknown) (unknown) (no date) (unknown) (unknown) Hct 31.4 L (units unknown) (unknown) (unknown) (no date) (unknown) (unknown) Hct 37.0 (units unknown) (unknown) (unknown) (no date) (unknown) (unknown) Hct (units unknown) (unknown) (unknown) (no date) (unknown) (unknown) Hgb 10.1 L (units unknown) (unknown) (unknown) (no date) (unknown) (unknown) Hgb 11.9 L (units unknown) (unknown) (unknown) (no date) (unknown) (unknown) Hgb (units unknown) (unknown) (unknown) (no date) (unknown) (unknown) History of Present Illness (units unknown) (unknown) (unknown) (no date) (unknown) (unknown) Hospital Course (units unknown) (unknown) (unknown) (no date) (unknown) (unknown) In the ED workup was done, vitals notable for tachycardia. Initial CIWA 17, she (units unknown) (unknown) (unknown) (no date) (unknown) (unknown) Insomnia (units unknown) (unknown) (unknown) (no date) (unknown) (unknown) [address] [address] (units unknown) (unknown) (unknown) (no date) (unknown) (unknown) Laboratory Results - last 24 hr (units unknown) (unknown) (unknown) (no date) (unknown) (unknown) Labs (units unknown) (unknown) (unknown) (no date) (unknown) (unknown) Labs: (units unknown) (unknown) (unknown) (no date) (unknown) (unknown) Lactate 2.1 (units unknown) (unknown) (unknown) (no date) (unknown) (unknown) Lactate 2.9 H (units unknown) (unknown) (unknown) (no date) (unknown) (unknown) Lactate (units unknown) (unknown) (unknown) (no date) (unknown) (unknown) Lipase 408 H (units unknown) (unknown) (unknown) (no date) (unknown) (unknown) Lipase (units unknown) (unknown) (unknown) (no date) (unknown) (unknown) Lymph # (Auto) 2600 (units unknown) (unknown) (unknown) (no date) (unknown) (unknown) Lymph # (Auto) 2800 (units unknown) (unknown) (unknown) (no date) (unknown) (unknown) Lymph # (Auto) (units unknown) (unknown) (unknown) (no date) (unknown) (unknown) Lymph % (Auto) 51.5 H (units unknown) (unknown) (unknown) (no date) (unknown) (unknown) Lymph % (Auto) 54.2 H (units unknown) (unknown) (unknown) (no date) (unknown) (unknown) Lymph % (Auto) (units unknown) (unknown) (unknown) (no date) (unknown) (unknown) MCH 25.4 L (units unknown) (unknown) (unknown) (no date) (unknown) (unknown) MCH 25.7 L (units unknown) (unknown) (unknown) (no date) (unknown) (unknown) MCH (units unknown) (unknown) (unknown) (no date) (unknown) (unknown) MCHC 32.1 (units unknown) (unknown) (unknown) (no date) (unknown) (unknown) MCHC 32.2 (units unknown) (unknown) (unknown) (no date) (unknown) (unknown) MCHC (units unknown) (unknown) (unknown) (no date) (unknown) (unknown) MCV 79.0 L (units unknown) (unknown) (unknown) (no date) (unknown) (unknown) MCV 80.2 (units unknown) (unknown) (unknown) (no date) (unknown) (unknown) MCV (units unknown) (unknown) (unknown) (no date) (unknown) (unknown) Magnesium 2.2 (units unknown) (unknown) (unknown) (no date) (unknown) (unknown) Magnesium (units unknown) (unknown) (unknown) (no date) (unknown) (unknown) Jabari Guerra Sena, DO (units unknown) (unknown) (unknown) (no date) (unknown) (unknown) Medical History (units unknown) (unknown) (unknown) (no date) (unknown) (unknown) Menometrorrhagia (units unknown) (unknown) (unknown) (no date) (unknown) (unknown) [place] # (Auto) 300 (units unknown) (unknown) (unknown) (no date) (unknown) (unknown) [place] # (Auto) 400 (units unknown) (unknown) (unknown) (no date) (unknown) (unknown) [place] # (Auto) (units unknown) (unknown) (unknown) (no date) (unknown) (unknown) [place] % (Auto) 6.5 (units unknown) (unknown) (unknown) (no date) (unknown) (unknown) [place] % (Auto) 8.6 (units unknown) (unknown) (unknown) (no date) (unknown) (unknown) [place] % (Auto) (units unknown) (unknown) (unknown) (no date) (unknown) (unknown) Mother Diabetes mellitus (units unknown) (unknown) (unknown) (no date) (unknown) (unknown) Ms. Connors is a 31W with PMH alcohol abuse, DTs, alcoholic seizure who presents (units unknown) (unknown) (unknown) (no date) (unknown) (unknown) NECK: trachea midline, no JVD (units unknown) (unknown) (unknown) (no date) (unknown) (unknown) NEURO: awake and alert, no focal deficits (units unknown) (unknown) (unknown) (no date) (unknown) (unknown) Tonia Schneider MD (units unknown) (unknown) (unknown) (no date) (unknown) (unknown) Narrative (units unknown) (unknown) (unknown) (no date) (unknown) (unknown) Narrative: (units unknown) (unknown) (unknown) (no date) (unknown) (unknown) Neut # (Auto) 1900 (units unknown) (unknown) (unknown) (no date) (unknown) (unknown) Neut # (Auto) (units unknown) (unknown) (unknown) (no date) (unknown) (unknown) Neut % (Auto) 36.6 L (units unknown) (unknown) (unknown) (no date) (unknown) (unknown) Neut % (Auto) 36.7 L (units unknown) (unknown) (unknown) (no date) (unknown) (unknown) Neut % (Auto) (units unknown) (unknown) (unknown) (no date) (unknown) (unknown) Obesity (units unknown) (unknown) (unknown) (no date) (unknown) (unknown) Objective (units unknown) (unknown) (unknown) (no date) (unknown) (unknown) Overweight (units unknown) (unknown) (unknown) (no date) (unknown) (unknown) Oxygen Delivery Method Room Air (units unknown) (unknown) (unknown) (no date) (unknown) (unknown) Oxygen Delivery Method (units unknown) (unknown) (unknown) (no date) (unknown) (unknown) PFSH (units unknown) (unknown) (unknown) (no date) (unknown) (unknown) PULM: clear bilaterally, no wheezes, rhonchi, rales (units unknown) (unknown) (unknown) (no date) (unknown) (unknown) Patient Disposition: Home (units unknown) (unknown) (unknown) (no date) (unknown) (unknown) Patient: Sarah Connors MR#: M (units unknown) (unknown) (unknown) (no date) (unknown) (unknown) Plt Count 332 (units unknown) (unknown) (unknown) (no date) (unknown) (unknown) Plt Count 396 (units unknown) (unknown) (unknown) (no date) (unknown) (unknown) Plt Count (units unknown) (unknown) (unknown) (no date) (unknown) (unknown) Potassium 3.5 (units unknown) (unknown) (unknown) (no date) (unknown) (unknown) Potassium 3.6 (units unknown) (unknown) (unknown) (no date) (unknown) (unknown) Potassium (units unknown) (unknown) (unknown) (no date) (unknown) (unknown) Prescriptions: (units unknown) (unknown) (unknown) (no date) (unknown) (unknown) Primary Care Provider: Tonia Schneider (units unknown) (unknown) (unknown) (no date) (unknown) (unknown) Primary care physician: (units unknown) (unknown) (unknown) (no date) (unknown) (unknown) Procalcitonin < 0.03 (units unknown) (unknown) (unknown) (no date) (unknown) (unknown) Procalcitonin (units unknown) (unknown) (unknown) (no date) (unknown) (unknown) Provider (units unknown) (unknown) (unknown) (no date) (unknown) (unknown) Provider: Jabari Sena D.O. (units unknown) (unknown) (unknown) (no date) (unknown) (unknown) Pulse Oximetry 100 (units unknown) (unknown) (unknown) (no date) (unknown) (unknown)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 (units unknown) (unknown) (unknown) (no date) (unknown) (unknown) alcohol intake frequency: other (units unknown) (unknown) (unknown) (no date) (unknown) (unknown) alcohol intake: current (units unknown) (unknown) (unknown) (no date) (unknown) (unknown) and below (units unknown) (unknown) (unknown) (no date) (unknown) (unknown) any dysuria, urgency or frequency. She denies any blistering or changes to the (units unknown) (unknown) (unknown) (no date) (unknown) (unknown) appears to be in mil d distress. (units unknown) (unknown) (unknown) (no date) (unknown) (unknown) areas of erythema throughout her torso and extremities and neck, not appreciated (units unknown) (unknown) (unknown) (no date) (unknown) (unknown) aware of. Patient's afebrile. She is had approximately 6 hours of symptoms (units unknown) (unknown) (unknown) (no date) (unknown) (unknown) blistering or sloughing off of gin, persistent vomiting, lightheadedness or (units unknown) (unknown) (unknown) (no date) (unknown) (unknown) conjunctival pallor. Throat is clear without any exudates, erythema, tonsillar (units unknown) (unknown) (unknown) (no date) (unknown) (unknown) continuing to progress so was not given epinephrine initially. (units unknown) (unknown) (unknown) (no date) (unknown) (unknown) current occupational exposures/hazards: Yes (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 with Pandemic ) (units unknown) (unknown) (unknown) (no date) (unknown) (unknown) education level: college (units unknown) (unknown) (unknown) (no date) (unknown) (unknown) enlargement or uvula r deviation, no swelling of the lips, oropharynx or face. (units unknown) (unknown) (unknown) (no date) (unknown) (unknown) episode in the past when she received Reglan. She states no new medications, (units unknown) (unknown) (unknown) (no date) (unknown) (unknown) exposures patient's only medication is Seroquel she states she is been on this (units unknown) (unknown) (unknown) (no date) (unknown) (unknown) extremities, full range of motion, normal gait 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[employer] Witness (units unknown) (unknown) (unknown) (no date) (unknown) (unknown) had any new or exposures that she is aware of. No camping or outdoor exposures (units unknown) (unknown) (unknown) (no date) (unknown) (unknown) had nausea and 1 or 2 episodes of vomiting. She states no diarrhea. She denies (units unknown) (unknown) (unknown) (no date) (unknown) (unknown) headache, no vision changes. No chest pain or shortness of breath. She does (units unknown) (unknown) (unknown) (no date) (unknown) (unknown) household members: significant other (units unknown) (unknown) (unknown) (no date) (unknown) (unknown) hydrocodone [HYDROCODONE] AdvReac Unknown VOMITING Verified 07/12/22 16:18 (units unknown) (unknown) (unknown) (no date) (unknown) (unknown) hydroxyzine HCl 50 m g tablet 50 mg PO PRN PRN Anxiety 07/13/22 08/09/22 (units unknown) (unknown) (unknown) (no date) (unknown) (unknown) hydroxyzine HCl 50 m g tablet (units unknown) (unknown) (unknown) (no date) (unknown) (unknown) involvement in his had 6 hours with symptoms present but not seeming to be (units unknown) (unknown) (unknown) (no date) (unknown) (unknown) longstanding without any recent medication changes. She has had reactions to (units unknown) (unknown) (unknown) (no date) (unknown) (unknown) marital status: (units unknown) (unknown) (unknown) (no date) (unknown) (unknown) masses noted, no hepatosplenomegaly (units unknown) (unknown) (unknown) (no date) (unknown) (unknown) medications and she is unaware of any other new exposures or potential causes. (units unknown) (unknown) (unknown) (no date) (unknown) (unknown) metoclopramide Allergy Mild RASH/HIVES Verified 07/12/22 16:18 (units unknown) (unknown) (unknown) (no date) (unknown) (unknown) metoclopramide or Reglan and hydrocodone and states this feels similar. She (units unknown) (unknown) (unknown) (no date) (unknown) (unknown) might be a potential source for your symptoms today. (units unknown) (unknown) (unknown) (no date) (unknown) (unknown) morning with rash an d pruritus all over. Patient states no fevers or chills no (units unknown) (unknown) (unknown) (no date) (unknown) (unknown) movements are intact , nares are clear, TMs are clear with no fluid, there is no (units unknown) (unknown) (unknown) (no date) (unknown) (unknown) new or concerning changes, (units unknown) (unknown) (unknown) (no date) (unknown) (unknown) not appreciate any swelling her lips, tongue or airway. Patient states she is (units unknown) (unknown) (unknown) (no date) (unknown) (unknown) not had any dosage changes. She denies any other new ingestions. She has not (units unknown) (unknown) (unknown) (no date) (unknown) (unknown) number of children: 1 (units unknown) (unknown) (unknown) (no date) (unknown) (unknown) occupational status: employed (units unknown) (unknown) (unknown) (no date) (unknown) (unknown) on her face. Patient does not have any blistering, vesicles, no papules. (units unknown) (unknown) (unknown) (no date) (unknown) (unknown) passing out, chest pain or shortness of breath, black or bloody stools or other (units unknown) (unknown) (unknown) (no date) (unknown) (unknown) quetiapine 300 mg tablet 300 mg PO DAILY 07/13/22 08/09/22 (units unknown) (unknown) (unknown) (no date) (unknown) (unknown) quetiapine 300 mg tablet (units unknown) (unknown) (unknown) (no date) (unknown) (unknown) second hand exposure : No (growing up as a child - not currently) (units unknown) (unknown) (unknown) (no date) (unknown) (unknown) shaky. No passing ou t or dizziness. Patient states she has had 1 similar (units unknown) (unknown) (unknown) (no date) (unknown) (unknown) she received Solu-Medrol, Benadryl 25 mg and Pepcid. She has not had any airway (units unknown) (unknown) (unknown) (no date) (unknown) (unknown) she takes Seroquel daily she states she is been on this for some time. She has (units unknown) (unknown) (unknown) (no date) (unknown) (unknown) skin other than the red spotty rash and itching. Patient states she feels (units unknown) (unknown) (unknown) (no date) (unknown) (unknown) special renee needs: No (units unknown) (unknown) (unknown) (no date) (unknown) (unknown) states no recent ingestion of these medications she states no other new (units unknown) (unknown) (unknown) (no date) (unknown) (unknown) substance use type: does not use (units unknown) (unknown) (unknown) (no date) (unknown) (unknown) symmetrically (units unknown) (unknown) (unknown) (no date) (unknown) (unknown) symptoms. (units unknown) (unknown) (unknown) (no date) (unknown) (unknown) that she is aware of . Patient has had prior D+C denies any other surgeries. (units unknown) (unknown) (unknown) (no date) (unknown) (unknown) tolerate. Once her symptoms have resolved to can restart this to see if this (units unknown) (unknown) (unknown) (no date) (unknown) (unknown) upper and lower extremities (units unknown) (unknown) (unknown) (no date) (unknown) (unknown) went to bed about 8:00 a.m. last night she states she felt fine she woke up this (units unknown) (unknown) (unknown) (no date) (unknown) (unknown) woke up with these did not have them present last night when she went to bed at (units unknown) (unknown) Result panel [id number] (unknown) (no date) (unknown) (unknown) (no value) (units unknown) (unknown) (unknown) (no date) (unknown) (unknown) [id number] (units unknown) (unknown) (unknown) (no date) (unknown) (unknown) 10/08/22 (units unknown) (unknown) (unknown) (no date) (unknown) (unknown) 08:29 10/08/22 (units unknown) (unknown) (unknown) (no date) (unknown) (unknown) 08:38 10/08/22 (units unknown) (unknown) (unknown) (no date) (unknown) (unknown) 08:38 (units unknown) (unknown) (unknown) (no date) (unknown) (unknown) 300 mg PO DAILY (units unknown) (unknown) (unknown) (no date) (unknown) (unknown) 50 mg PO PRN PRN (Reason: Anxiety) (units unknown) (unknown) (unknown) (no date) (unknown) (unknown) 8:00 p.m.. Patient did take some oral Benadryl at home at about 6:00 a.m. so (units unknown) (unknown) (unknown) (no date) (unknown) (unknown) ABD:bowel sounds normal, soft, non-tender, no guarding, rebound, rigidity, no (units unknown) (unknown) (unknown) (no date) (unknown) (unknown) Activity Restrictions/Addition al Instructions: (units unknown) (unknown) (unknown) (no date) (unknown) (unknown) Age/Sex: 32 / F (units unknown) (unknown) (unknown) (no date) (unknown) (unknown) Alcohol withdrawal delirium, acute, hyperactive (units unknown) (unknown) (unknown) (no date) (unknown) (unknown) Alcoholism (units unknown) (unknown) (unknown) (no date) (unknown) (unknown) Allergic reaction (units unknown) (unknown) (unknown) (no date) (unknown) (unknown) Allergies (units unknown) (unknown) (unknown) (no date) (unknown) (unknown) Allergy/AdvReac Type Severity Reaction Status Date / Time (units unknown) (unknown) (unknown) (no date) (unknown) (unknown) Anemia (-2018) (units unknown) (unknown) (unknown) (no date) (unknown) (unknown) Blood Pressure 101/6 0 10/08/22 08:29 (units unknown) (unknown) (unknown) (no date) (unknown) (unknown) Blood Pressure 101/6 0 118/66 (units unknown) (unknown) (unknown) (no date) (unknown) (unknown) Chief complaint: Skin/Abscess/Foreign Body (units unknown) (unknown) (unknown) (no date) (unknown) (unknown) Clinical Impression: (units unknown) (unknown) (unknown) (no date) (unknown) (unknown) Continue with Pepcid 40 mg daily. (units unknown) (unknown) (unknown) (no date) (unknown) (unknown) Course (units unknown) (unknown) (unknown) (no date) (unknown) (unknown) : 1990 Acct:[id number] (units unknown) (unknown) (unknown) (no date) (unknown) (unknown) Date of Service: 10/08/22 (units unknown) (unknown) (unknown) (no date) (unknown) (unknown) Departure (units unknown) (unknown) (unknown) (no date) (unknown) (unknown) Diphenhydramine HCl (Diphenhydramine 50 Mg/Ml Vial) 25 mg IV NOW ONE (units unknown) (unknown) (unknown) (no date) (unknown) (unknown) Discharge Plan (units unknown) (unknown) (unknown) (no date) (unknown) (unknown) Discontinued Medications (units unknown) (unknown) (unknown) (no date) (unknown) (unknown) ER Physician: Nahed Cuevas D.O. (units unknown) (unknown) (unknown) (no date) (unknown) (unknown) Emergency Report (units unknown) (unknown) (unknown) (no date) (unknown) (unknown) Exam Narrative: (units unknown) (unknown) (unknown) (no date) (unknown) (unknown) Exam (units unknown) (unknown) (unknown) (no date) (unknown) (unknown) Family History (units unknown) (unknown) (unknown) (no date) (unknown) (unknown) Family/Other Alcoholism (units unknown) (unknown) (unknown) (no date) (unknown) (unknown) Family/Other Diabete s mellitus (units unknown) (unknown) (unknown) (no date) (unknown) (unknown) Famotidine (Famotidine 20 Mg/2 Ml Vial) 20 mg IV NOW SANDY (units unknown) (unknown) (unknown) (no date) (unknown) (unknown) Father Alcoholism (units unknown) (unknown) (unknown) (no date) (unknown) (unknown) Tonia Schneider MD [Physician] (units unknown) (unknown) (unknown) (no date) (unknown) (unknown) GEN: well nourished, well appearing female, alert and oriented x 3, patient (units unknown) (unknown) (unknown) (no date) (unknown) (unknown) :No CVA tenderness (units unknown) (unknown) (unknown) (no date) (unknown) (unknown) General (units unknown) (unknown) (unknown) (no date) (unknown) (unknown) Grandfather Smoker (units unknown) (unknown) (unknown) (no date) (unknown) (unknown) Grandfather Unknown whether patient has any health problems (units unknown) (unknown) (unknown) (no date) (unknown) (unknown) Grandmother Diabetes mellitus (units unknown) (unknown) (unknown) (no date) (unknown) (unknown) Grandmother Hypoglycemia (units unknown) (unknown) (unknown) (no date) (unknown) (unknown) H/O dilation and curettage (-12/14/16) (units unknown) (unknown) (unknown) (no date) (unknown) (unknown) H/O wisdom tooth extraction () (units unknown) (unknown) (unknown) (no date) (unknown) (unknown) HEART: Regular rate and rhythm without murmur, clicks, rubs. Pulses are equal in (units unknown) (unknown) (unknown) (no date) (unknown) (unknown) HEENT: Atraumatic, pupils are equal round reactive to light, extraocular (units unknown) (unknown) (unknown) (no date) (unknown) (unknown) HPI - Skin/Abscess/Foreign Bdy (units unknown) (unknown) (unknown) (no date) (unknown) (unknown) HPI narrative: (units unknown) (unknown) (unknown) (no date) (unknown) (unknown) History of Present Illness (units unknown) (unknown) (unknown) (no date) (unknown) (unknown) Home Medications (units unknown) (unknown) (unknown) (no date) (unknown) (unknown) I would try holding your Seroquel for the next several days if you are able to (units unknown) (unknown) (unknown) (no date) (unknown) (unknown) Initial Vital Signs (units unknown) (unknown) (unknown) (no date) (unknown) (unknown) Initial Vital Signs: (units unknown) (unknown) (unknown) (no date) (unknown) (unknown) Insomnia (units unknown) (unknown) (unknown) (no date) (unknown) (unknown) Instructions: Anaphylaxis (units unknown) (unknown) (unknown) (no date) (unknown) (unknown) [address] [address] (units unknown) (unknown) (unknown) (no date) (unknown) (unknown) LUNGS:Lungs clear to auscultation, no wheezes, rales, crackles, chest moves (units unknown) (unknown) (unknown) (no date) (unknown) (unknown) Last Admin: 10/08/22 09:00 Dose: 125 mg (units unknown) (unknown) (unknown) (no date) (unknown) (unknown) Last Admin: 10/08/22 09:01 Dose: 20 mg (units unknown) (unknown) (unknown) (no date) (unknown) (unknown) Last Admin: 10/08/22 09:01 Dose: 25 mg (units unknown) (unknown) (unknown) (no date) (unknown) (unknown) Limitations: no limitations (units unknown) (unknown) (unknown) (no date) (unknown) (unknown) MDM - Skin/Abscess/Foreign Bdy (units unknown) (unknown) (unknown) (no date) (unknown) (unknown) MDM Narrative (units unknown) (unknown) (unknown) (no date) (unknown) (unknown) MSCL: Non-tender, no muscle atrophy, muscles strength 5/5 upper and lower (units unknown) (unknown) (unknown) (no date) (unknown) (unknown) Medical History (units unknown) (unknown) (unknown) (no date) (unknown) (unknown) Medical decision making narrative: (units unknown) (unknown) (unknown) (no date) (unknown) (unknown) Medication Instructions Recorded Confirmed (units unknown) (unknown) (unknown) (no date) (unknown) (unknown) Menometrorrhagia (units unknown) (unknown) (unknown) (no date) (unknown) (unknown) Methylprednisolone (Methylprednisolone 125 Mg/2 Ml Vial) 125 mg IV NOW ONE (units unknown) (unknown) (unknown) (no date) (unknown) (unknown) Mode of arrival: Ambulatory (units unknown) (unknown) (unknown) (no date) (unknown) (unknown) Mother Diabetes mellitus (units unknown) (unknown) (unknown) (no date) (unknown) (unknown) NEURO:CN 2-12 intact , sensation normal (units unknown) (unknown) (unknown) (no date) (unknown) (unknown) Narrative (units unknown) (unknown) (unknown) (no date) (unknown) (unknown) No Action (units unknown) (unknown) (unknown) (no date) (unknown) (unknown) No muffled voice or hoarseness. No stridor. (units unknown) (unknown) (unknown) (no date) (unknown) (unknown) Obesity (units unknown) (unknown) (unknown) (no date) (unknown) (unknown) Ordered: (units unknown) (unknown) (unknown) (no date) (unknown) (unknown) Orders (units unknown) (unknown) (unknown) (no date) (unknown) (unknown) Overweight (units unknown) (unknown) (unknown) (no date) (unknown) (unknown) Oxygen Delivery Method Room Air 10/08/22 08:29 (units unknown) (unknown) (unknown) (no date) (unknown) (unknown) Oxygen Delivery Method Room Air (units unknown) (unknown) (unknown) (no date) (unknown) (unknown) Patient History (units unknown) (unknown) (unknown) (no date) (unknown) (unknown) Patient denies tobacco, alcohol or illicit. (units unknown) (unknown) (unknown) (no date) (unknown) (unknown) Patient is no excoriation but is scratching all over. (units unknown) (unknown) (unknown) (no date) (unknown) (unknown) Patient: Sarah Connors MR#: [id number] (units unknown) (unknown) (unknown) (no date) (unknown) (unknown) Please follow-up for recheck. (units unknown) (unknown) (unknown) (no date) (unknown) (unknown) Please return for ne w or worsening symptoms, swelling of your lips, tongue or (units unknown) (unknown) (unknown) (no date) (unknown) (unknown) Prescription sent to (units unknown) (unknown) (unknown) (no date) (unknown) (unknown) Prescriptions: (units unknown) (unknown) (unknown) (no date) (unknown) (unknown) Pulse Oximetry 99 10/08/22 08:29 (units unknown) (unknown) (unknown) (no date) (unknown) (unknown) Pulse Oximetry 99 99 (units unknown) (unknown) (unknown) (no date) (unknown) (unknown) Pulse Rate 100 H 10/08/22 08:29 (units unknown) (unknown) (unknown) (no date) (unknown) (unknown) Pulse Rate 100 H 105 H (units unknown) (unknown) (unknown) (no date) (unknown) (unknown) ROS Unobtainable: Al l systems reviewed + are unremarkable except as noted in HPI (units unknown) (unknown) (unknown) (no date) (unknown) (unknown) Referrals: (units unknown) (unknown) (unknown) (no date) (unknown) (unknown) Related Data (units unknown) (unknown) (unknown) (no date) (unknown) (unknown) Respiratory Rate 18 10/08/22 08:29 (units unknown) (unknown) (unknown) (no date) (unknown) (unknown) Respiratory Rate 18 (units unknown) (unknown) (unknown) (no date) (unknown) (unknown) Review of Systems (units unknown) (unknown) (unknown) (no date) (unknown) (unknown) S/P myringotomy with insertion of tube (units unknown) (unknown) (unknown) (no date) (unknown) (unknown) SKIN: Patient has patchy erythematous rash with hive-like wheals and smaller (units unknown) (unknown) (unknown) (no date) (unknown) (unknown) (spontaneous vaginal delivery) (-09/05/18) (units unknown) (unknown) (unknown) (no date) (unknown) (unknown) She does not have an y known environmental, food or other allergies that she is (units unknown) (unknown) (unknown) (no date) (unknown) (unknown) Signed By: (units unknown) (unknown) (unknown) (no date) (unknown) (unknown) Smoker (units unknown) (unknown) (unknown) (no date) (unknown) (unknown) Smoking Status: Former smoker (units unknown) (unknown) (unknown) (no date) (unknown) (unknown) Social History (units unknown) (unknown) (unknown) (no date) (unknown) (unknown) Source: patient (units unknown) (unknown) (unknown) (no date) (unknown) (unknown) Stated complaint: hives/N 6 hours (units unknown) (unknown) (unknown) (no date) (unknown) (unknown) Stop: 10/08/22 08:41 (units unknown) (unknown) (unknown) (no date) (unknown) (unknown) Substance Use Type: does not use (units unknown) (unknown) (unknown) (no date) (unknown) (unknown) Surgical History (units unknown) (unknown) (unknown) (no date) (unknown) (unknown) Take steroids once daily until gone. (units unknown) (unknown) (unknown) (no date) (unknown) (unknown) Temperature 97.8 F 10/08/22 08:29 (units unknown) (unknown) (unknown) (no date) (unknown) (unknown) Temperature 97.8 F (units unknown) (unknown) (unknown) (no date) (unknown) (unknown) This is a 32-year-ol d female with history of mood disorder and prior alcohol (units unknown) (unknown) (unknown) (no date) (unknown) (unknown) This is a 32-year-ol d female with rash that appears allergic. No known (units unknown) (unknown) (unknown) (no date) (unknown) (unknown) Time Seen by Provider: 10/08/22 08:34 (units unknown) (unknown) (unknown) (no date) (unknown) (unknown) Vital Signs - 8 hr (units unknown) (unknown) (unknown) (no date) (unknown) (unknown) Vital Signs (units unknown) (unknown) (unknown) (no date) (unknown) (unknown) Vital signs: (units unknown) (unknown) (unknown) (no date) (unknown) (unknown) You can continue wit h Benadryl 1-2 tablets (25-50mg) every 6 hours as needed for (units unknown) (unknown) (unknown) (no date) (unknown) (unknown) [METOCLOPRAMIDE] (units unknown) (unknown) (unknown) (no date) (unknown) (unknown) abuse with complaint of hives and itching all over her body. She states she (units unknown) (unknown) (unknown) (no date) (unknown) (unknown) airway, difficulty with swallowing, changes to voice, fevers, worsening rash or (units unknown) (unknown) (unknown) (no date) (unknown) (unknown) alcohol intake frequency: other (units unknown) (unknown) (unknown) (no date) (unknown) (unknown) alcohol intake: current (units unknown) (unknown) (unknown) (no date) (unknown) (unknown) and below (units unknown) (unknown) (unknown) (no date) (unknown) (unknown) any dysuria, urgency or frequency. She denies any blistering or changes to the (units unknown) (unknown) (unknown) (no date) (unknown) (unknown) appears to be in mil d distress. (units unknown) (unknown) (unknown) (no date) (unknown) (unknown) areas of erythema throughout her torso and extremities and neck, not appreciated (units unknown) (unknown) (unknown) (no date) (unknown) (unknown) aware of. Patient's afebrile. She is had approximately 6 hours of symptoms (units unknown) (unknown) (unknown) (no date) (unknown) (unknown) blistering or sloughing off of gin, persistent vomiting, lightheadedness or (units unknown) (unknown) (unknown) (no date) (unknown) (unknown) conjunctival pallor. Throat is clear without any exudates, erythema, tonsillar (units unknown) (unknown) (unknown) (no date) (unknown) (unknown) continuing to progress so was not given epinephrine initially. (units unknown) (unknown) (unknown) (no date) (unknown) (unknown) current occupational exposures/hazards: Yes (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 with Pandemic ) (units unknown) (unknown) (unknown) (no date) (unknown) (unknown) education level: college (units unknown) (unknown) (unknown) (no date) (unknown) (unknown) enlargement or uvula r deviation, no swelling of the lips, oropharynx or face. (units unknown) (unknown) (unknown) (no date) (unknown) (unknown) episode in the past when she received Reglan. She states no new medications, (units unknown) (unknown) (unknown) (no date) (unknown) (unknown) exposures patient's only medication is Seroquel she states she is been on this (units unknown) (unknown) (unknown) (no date) (unknown) (unknown) extremities, full range of motion, normal gait 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Jehovah'[employer] Witness (units unknown) (unknown) (unknown) (no date) (unknown) (unknown) had any new or exposures that she is aware of. No camping or outdoor exposures (units unknown) (unknown) (unknown) (no date) (unknown) (unknown) had nausea and 1 or 2 episodes of vomiting. She states no diarrhea. She denies (units unknown) (unknown) (unknown) (no date) (unknown) (unknown) headache, no vision changes. No chest pain or shortness of breath. She does (units unknown) (unknown) (unknown) (no date) (unknown) (unknown) household members: significant other (units unknown) (unknown) (unknown) (no date) (unknown) (unknown) hydrocodone [HYDROCODONE] AdvReac Unknown VOMITING Verified 07/12/22 16:18 (units unknown) (unknown) (unknown) (no date) (unknown) (unknown) hydroxyzine HCl 50 m g tablet 50 mg PO PRN PRN Anxiety 07/13/22 08/09/22 (units unknown) (unknown) (unknown) (no date) (unknown) (unknown) hydroxyzine HCl 50 m g tablet (units unknown) (unknown) (unknown) (no date) (unknown) (unknown) involvement in his had 6 hours with symptoms present but not seeming to be (units unknown) (unknown) (unknown) (no date) (unknown) (unknown) longstanding without any recent medication changes. She has had reactions to (units unknown) (unknown) (unknown) (no date) (unknown) (unknown) marital status: (units unknown) (unknown) (unknown) (no date) (unknown) (unknown) masses noted, no hepatosplenomegaly (units unknown) (unknown) (unknown) (no date) (unknown) (unknown) medications and she is unaware of any other new exposures or potential causes. (units unknown) (unknown) (unknown) (no date) (unknown) (unknown) metoclopramide Allergy Mild RASH/HIVES Verified 07/12/22 16:18 (units unknown) (unknown) (unknown) (no date) (unknown) (unknown) metoclopramide or Reglan and hydrocodone and states this feels similar. She (units unknown) (unknown) (unknown) (no date) (unknown) (unknown) might be a potential source for your symptoms today. (units unknown) (unknown) (unknown) (no date) (unknown) (unknown) morning with rash an d pruritus all over. Patient states no fevers or chills no (units unknown) (unknown) (unknown) (no date) (unknown) (unknown) movements are intact , nares are clear, TMs are clear with no fluid, there is no (units unknown) (unknown) (unknown) (no date) (unknown) (unknown) new or concerning changes, (units unknown) (unknown) (unknown) (no date) (unknown) (unknown) not appreciate any swelling her lips, tongue or airway. Patient states she is (units unknown) (unknown) (unknown) (no date) (unknown) (unknown) not had any dosage changes. She denies any other new ingestions. She has not (units unknown) (unknown) (unknown) (no date) (unknown) (unknown) number of children: 1 (units unknown) (unknown) (unknown) (no date) (unknown) (unknown) occupational status: employed (units unknown) (unknown) (unknown) (no date) (unknown) (unknown) on her face. Patient does not have any blistering, vesicles, no papules. (units unknown) (unknown) (unknown) (no date) (unknown) (unknown) passing out, chest pain or shortness of breath, black or bloody stools or other (units unknown) (unknown) (unknown) (no date) (unknown) (unknown) quetiapine 300 mg tablet 300 mg PO DAILY 07/13/22 08/09/22 (units unknown) (unknown) (unknown) (no date) (unknown) (unknown) quetiapine 300 mg tablet (units unknown) (unknown) (unknown) (no date) (unknown) (unknown) second hand exposure : No (growing up as a child - not currently) (units unknown) (unknown) (unknown) (no date) (unknown) (unknown) shaky. No passing ou t or dizziness. Patient states she has had 1 similar (units unknown) (unknown) (unknown) (no date) (unknown) (unknown) she received Solu-Medrol, Benadryl 25 mg and Pepcid. She has not had any airway (units unknown) (unknown) (unknown) (no date) (unknown) (unknown) she takes Seroquel daily she states she is been on this for some time. She has (units unknown) (unknown) (unknown) (no date) (unknown) (unknown) skin other than the red spotty rash and itching. Patient states she feels (units unknown) (unknown) (unknown) (no date) (unknown) (unknown) special renee needs: No (units unknown) (unknown) (unknown) (no date) (unknown) (unknown) states no recent ingestion of these medications she states no other new (units unknown) (unknown) (unknown) (no date) (unknown) (unknown) substance use type: does not use (units unknown) (unknown) (unknown) (no date) (unknown) (unknown) symmetrically (units unknown) (unknown) (unknown) (no date) (unknown) (unknown) symptoms. (units unknown) (unknown) (unknown) (no date) (unknown) (unknown) that she is aware of . Patient has had prior D+C denies any other surgeries. (units unknown) (unknown) (unknown) (no date) (unknown) (unknown) tolerate. Once her symptoms have resolved to can restart this to see if this (units unknown) (unknown) (unknown) (no date) (unknown) (unknown) upper and lower extremities (units unknown) (unknown) (unknown) (no date) (unknown) (unknown) went to bed about 8:00 a.m. last night she states she felt fine she woke up this (units unknown) (unknown) (unknown) (no date) (unknown) (unknown) woke up with these did not have them present last night when she went to bed at (units unknown) (unknown) Result panel [id number] (unknown) (no date) (unknown) (unknown) (no value) (units unknown) (unknown) (unknown) (no date) (unknown) (unknown) [id number] (units unknown) (unknown) (unknown) (no date) (unknown) (unknown) 10/08/22 (units unknown) (unknown) (unknown) (no date) (unknown) (unknown) 08:29 10/08/22 (units unknown) (unknown) (unknown) (no date) (unknown) (unknown) 08:38 10/08/22 (units unknown) (unknown) (unknown) (no date) (unknown) (unknown) 08:38 (units unknown) (unknown) (unknown) (no date) (unknown) (unknown) 09:13 10/08/22 (units unknown) (unknown) (unknown) (no date) (unknown) (unknown) 09:13 (units unknown) (unknown) (unknown) (no date) (unknown) (unknown) 300 mg PO DAILY (units unknown) (unknown) (unknown) (no date) (unknown) (unknown) 40 mg PO DAILY Qty: 7 0RF (units unknown) (unknown) (unknown) (no date) (unknown) (unknown) 50 mg PO DAILY Qty: 5 0RF (units unknown) (unknown) (unknown) (no date) (unknown) (unknown) 50 mg PO PRN PRN (Reason: Anxiety) (units unknown) (unknown) (unknown) (no date) (unknown) (unknown) 8:00 p.m.. Patient did take some oral Benadryl at home at about 6:00 a.m. so (units unknown) (unknown) (unknown) (no date) (unknown) (unknown) ABD:bowel sounds normal, soft, non-tender, no guarding, rebound, rigidity, no (units unknown) (unknown) (unknown) (no date) (unknown) (unknown) Activity Restrictions/Addition al Instructions: (units unknown) (unknown) (unknown) (no date) (unknown) (unknown) Age/Sex: 32 / F (units unknown) (unknown) (unknown) (no date) (unknown) (unknown) Alcohol withdrawal delirium, acute, hyperactive (units unknown) (unknown) (unknown) (no date) (unknown) (unknown) Alcoholism (units unknown) (unknown) (unknown) (no date) (unknown) (unknown) All questions answered. (units unknown) (unknown) (unknown) (no date) (unknown) (unknown) Allergic reaction (units unknown) (unknown) (unknown) (no date) (unknown) (unknown) Allergies (units unknown) (unknown) (unknown) (no date) (unknown) (unknown) Allergy/AdvReac Type Severity Reaction Status Date / Time (units unknown) (unknown) (unknown) (no date) (unknown) (unknown) Anemia (-2018) (units unknown) (unknown) (unknown) (no date) (unknown) (unknown) Blood Pressure 101/6 0 05/23 08:29 (units unknown) (unknown) (unknown) (no date) (unknown) (unknown) Blood Pressure 101/6 0 118/66 (units unknown) (unknown) (unknown) (no date) (unknown) (unknown) Blood Pressure 105/64 (units unknown) (unknown) (unknown) (no date) (unknown) (unknown) Chief complaint: Skin/Abscess/Foreign Body (units unknown) (unknown) (unknown) (no date) (unknown) (unknown) Clinical Impression: (units unknown) (unknown) (unknown) (no date) (unknown) (unknown) Continue with Pepcid 40 mg daily. (units unknown) (unknown) (unknown) (no date) (unknown) (unknown) Course (units unknown) (unknown) (unknown) (no date) (unknown) (unknown) : 1990 Acct:[id number] (units unknown) (unknown) (unknown) (no date) (unknown) (unknown) Date of Service: 10/08/22 (units unknown) (unknown) (unknown) (no date) (unknown) (unknown) Departure (units unknown) (unknown) (unknown) (no date) (unknown) (unknown) Diphenhydramine HCl (Diphenhydramine 50 Mg/Ml Vial) 25 mg IV NOW ONE (units unknown) (unknown) (unknown) (no date) (unknown) (unknown) Discharge Plan (units unknown) (unknown) (unknown) (no date) (unknown) (unknown) Discontinued Medications (units unknown) (unknown) (unknown) (no date) (unknown) (unknown) ER Physician: Nahed Cuevas D.O. (units unknown) (unknown) (unknown) (no date) (unknown) (unknown) Emergency Report (units unknown) (unknown) (unknown) (no date) (unknown) (unknown) Exam Narrative: (units unknown) (unknown) (unknown) (no date) (unknown) (unknown) Exam (units unknown) (unknown) (unknown) (no date) (unknown) (unknown) Family History (units unknown) (unknown) (unknown) (no date) (unknown) (unknown) Family/Other Alcoholism (units unknown) (unknown) (unknown) (no date) (unknown) (unknown) Family/Other Diabete s mellitus (units unknown) (unknown) (unknown) (no date) (unknown) (unknown) Famotidine (Famotidine 20 Mg/2 Ml Vial) 20 mg IV NOW SANDY (units unknown) (unknown) (unknown) (no date) (unknown) (unknown) Father Alcoholism (units unknown) (unknown) (unknown) (no date) (unknown) (unknown) Tonia Schneider MD [Physician] (units unknown) (unknown) (unknown) (no date) (unknown) (unknown) GEN: well nourished, well appearing female, alert and oriented x 3, patient (units unknown) (unknown) (unknown) (no date) (unknown) (unknown) :No CVA tenderness (units unknown) (unknown) (unknown) (no date) (unknown) (unknown) General (units unknown) (unknown) (unknown) (no date) (unknown) (unknown) Grandfather Smoker (units unknown) (unknown) (unknown) (no date) (unknown) (unknown) Grandfather Unknown whether patient has any health problems (units unknown) (unknown) (unknown) (no date) (unknown) (unknown) Grandmother Diabetes mellitus (units unknown) (unknown) (unknown) (no date) (unknown) (unknown) Grandmother Hypoglycemia (units unknown) (unknown) (unknown) (no date) (unknown) (unknown) H/O dilation and curettage (-12/14/16) (units unknown) (unknown) (unknown) (no date) (unknown) (unknown) H/O wisdom tooth extraction () (units unknown) (unknown) (unknown) (no date) (unknown) (unknown) HEART: Regular rate and rhythm without murmur, clicks, rubs. Pulses are equal in (units unknown) (unknown) (unknown) (no date) (unknown) (unknown) HEENT: Atraumatic, pupils are equal round reactive to light, extraocular (units unknown) (unknown) (unknown) (no date) (unknown) (unknown) HPI - Skin/Abscess/Foreign Bdy (units unknown) (unknown) (unknown) (no date) (unknown) (unknown) HPI narrative: (units unknown) (unknown) (unknown) (no date) (unknown) (unknown) History of Present Illness (units unknown) (unknown) (unknown) (no date) (unknown) (unknown) Home Medications (units unknown) (unknown) (unknown) (no date) (unknown) (unknown) I would try holding your Seroquel for the next several days if you are able to (units unknown) (unknown) (unknown) (no date) (unknown) (unknown) Initial Vital Signs (units unknown) (unknown) (unknown) (no date) (unknown) (unknown) Initial Vital Signs: (units unknown) (unknown) (unknown) (no date) (unknown) (unknown) Insomnia (units unknown) (unknown) (unknown) (no date) (unknown) (unknown) Instructions: Anaphylaxis (units unknown) (unknown) (unknown) (no date) (unknown) (unknown) [address] [address] (units unknown) (unknown) (unknown) (no date) (unknown) (unknown) LUNGS:Lungs clear to auscultation, no wheezes, rales, crackles, chest moves (units unknown) (unknown) (unknown) (no date) (unknown) (unknown) Last Admin: 10/08/22 09:00 Dose: 125 mg (units unknown) (unknown) (unknown) (no date) (unknown) (unknown) Last Admin: 10/08/22 09:01 Dose: 20 mg (units unknown) (unknown) (unknown) (no date) (unknown) (unknown) Last Admin: 10/08/22 09:01 Dose: 25 mg (units unknown) (unknown) (unknown) (no date) (unknown) (unknown) Limitations: no limitations (units unknown) (unknown) (unknown) (no date) (unknown) (unknown) MDM - Skin/Abscess/Foreign Bdy (units unknown) (unknown) (unknown) (no date) (unknown) (unknown) MDM Narrative (units unknown) (unknown) (unknown) (no date) (unknown) (unknown) MSCL: Non-tender, no muscle atrophy, muscles strength 5/5 upper and lower (units unknown) (unknown) (unknown) (no date) (unknown) (unknown) Medical History (units unknown) (unknown) (unknown) (no date) (unknown) (unknown) Medical decision making narrative: (units unknown) (unknown) (unknown) (no date) (unknown) (unknown) Medication Instructions Recorded Confirmed (units unknown) (unknown) (unknown) (no date) (unknown) (unknown) Medication Instructions Recorded (units unknown) (unknown) (unknown) (no date) (unknown) (unknown) Menometrorrhagia (units unknown) (unknown) (unknown) (no date) (unknown) (unknown) Methylprednisolone (Methylprednisolone 125 Mg/2 Ml Vial) 125 mg IV NOW ONE (units unknown) (unknown) (unknown) (no date) (unknown) (unknown) Mode of arrival: Ambulatory (units unknown) (unknown) (unknown) (no date) (unknown) (unknown) Mother Diabetes mellitus (units unknown) (unknown) (unknown) (no date) (unknown) (unknown) NEURO:CN 2-12 intact , sensation normal (units unknown) (unknown) (unknown) (no date) (unknown) (unknown) Narrative (units unknown) (unknown) (unknown) (no date) (unknown) (unknown) New (units unknown) (unknown) (unknown) (no date) (unknown) (unknown) No Action (units unknown) (unknown) (unknown) (no date) (unknown) (unknown) No muffled voice or hoarseness. No stridor. (units unknown) (unknown) (unknown) (no date) (unknown) (unknown) Obesity (units unknown) (unknown) (unknown) (no date) (unknown) (unknown) On recheck about 1/2 hour after medications were given patient's rash is (units unknown) (unknown) (unknown) (no date) (unknown) (unknown) Ordered: (units unknown) (unknown) (unknown) (no date) (unknown) (unknown) Orders (units unknown) (unknown) (unknown) (no date) (unknown) (unknown) Overweight (units unknown) (unknown) (unknown) (no date) (unknown) (unknown) Oxygen Delivery Method Room Air 10/08/22 08:29 (units unknown) (unknown) (unknown) (no date) (unknown) (unknown) Oxygen Delivery Method Room Air (units unknown) (unknown) (unknown) (no date) (unknown) (unknown) Oxygen Delivery Method (units unknown) (unknown) (unknown) (no date) (unknown) (unknown) Patient Disposition: Home (units unknown) (unknown) (unknown) (no date) (unknown) (unknown) Patient History (units unknown) (unknown) (unknown) (no date) (unknown) (unknown) Patient denies tobacco, alcohol or illicit. (units unknown) (unknown) (unknown) (no date) (unknown) (unknown) Patient is no excoriation but is scratching all over. (units unknown) (unknown) (unknown) (no date) (unknown) (unknown) Patient: Sarah Connors MR#: [id number] (units unknown) (unknown) (unknown) (no date) (unknown) (unknown) Please follow-up for recheck, I hope you continue to feel better. (units unknown) (unknown) (unknown) (no date) (unknown) (unknown) Please return for ne w or worsening symptoms, swelling of your lips, tongue or (units unknown) (unknown) (unknown) (no date) (unknown) (unknown) Prescription sent to [facility] (units unknown) (unknown) (unknown) (no date) (unknown) (unknown) Prescriptions: (units unknown) (unknown) (unknown) (no date) (unknown) (unknown) Previous Rx's (units unknown) (unknown) (unknown) (no date) (unknown) (unknown) Pulse Oximetry 96 (units unknown) (unknown) (unknown) (no date) (unknown) (unknown) Pulse Oximetry 99 10/08/22 08:29 (units unknown) (unknown) (unknown) (no date) (unknown) (unknown) Pulse Oximetry 99 99 (units unknown) (unknown) (unknown) (no date) (unknown) (unknown) Pulse Rate 100 H 10/08/22 08:29 (units unknown) (unknown) (unknown) (no date) (unknown) (unknown) Pulse Rate 100 H 105 H (units unknown) (unknown) (unknown) (no date) (unknown) (unknown) Pulse Rate 99 H (units unknown) (unknown) (unknown) (no date) (unknown) (unknown) ROS Unobtainable: Al l systems reviewed + are unremarkable except as noted in HPI (units unknown) (unknown) (unknown) (no date) (unknown) (unknown) Referrals: (units unknown) (unknown) (unknown) (no date) (unknown) (unknown) Related Data (units unknown) (unknown) (unknown) (no date) (unknown) (unknown) Respiratory Rate 18 10/08/22 08:29 (units unknown) (unknown) (unknown) (no date) (unknown) (unknown) Respiratory Rate 18 (units unknown) (unknown) (unknown) (no date) (unknown) (unknown) Respiratory Rate (units unknown) (unknown) (unknown) (no date) (unknown) (unknown) Review of Systems (units unknown) (unknown) (unknown) (no date) (unknown) (unknown) S/P myringotomy with insertion of tube (units unknown) (unknown) (unknown) (no date) (unknown) (unknown) SKIN: Patient has patchy erythematous rash with hive-like wheals and smaller (units unknown) (unknown) (unknown) (no date) (unknown) (unknown) (spontaneous vaginal delivery) (-09/05/18) (units unknown) (unknown) (unknown) (no date) (unknown) (unknown) She does not have an y known environmental, food or other allergies that she is (units unknown) (unknown) (unknown) (no date) (unknown) (unknown) Signed By: (units unknown) (unknown) (unknown) (no date) (unknown) (unknown) Smoker (units unknown) (unknown) (unknown) (no date) (unknown) (unknown) Smoking Status: Former smoker (units unknown) (unknown) (unknown) (no date) (unknown) (unknown) Social History (units unknown) (unknown) (unknown) (no date) (unknown) (unknown) Source: patient (units unknown) (unknown) (unknown) (no date) (unknown) (unknown) Stand Alone Forms: Patient Portal/API (units unknown) (unknown) (unknown) (no date) (unknown) (unknown) Stated complaint: hives/N 6 hours (units unknown) (unknown) (unknown) (no date) (unknown) (unknown) Stop: 10/08/22 08:41 (units unknown) (unknown) (unknown) (no date) (unknown) (unknown) Substance Use Type: does not use (units unknown) (unknown) (unknown) (no date) (unknown) (unknown) Surgical History (units unknown) (unknown) (unknown) (no date) (unknown) (unknown) Take steroids once daily until gone. (units unknown) (unknown) (unknown) (no date) (unknown) (unknown) Temperature 97.8 F 10/08/22 08:29 (units unknown) (unknown) (unknown) (no date) (unknown) (unknown) Temperature 97.8 F (units unknown) (unknown) (unknown) (no date) (unknown) (unknown) Temperature (units unknown) (unknown) (unknown) (no date) (unknown) (unknown) This is a 32-year-ol d female with history of mood disorder and prior alcohol (units unknown) (unknown) (unknown) (no date) (unknown) (unknown) This is a 32-year-ol d female with rash that appears allergic. No known (units unknown) (unknown) (unknown) (no date) (unknown) (unknown) Time Seen by Provider: 10/08/22 08:34 (units unknown) (unknown) (unknown) (no date) (unknown) (unknown) Vital Signs - 8 hr (units unknown) (unknown) (unknown) (no date) (unknown) (unknown) Vital Signs (units unknown) (unknown) (unknown) (no date) (unknown) (unknown) Vital signs: (units unknown) (unknown) (unknown) (no date) (unknown) (unknown) You can continue wit h Benadryl 1-2 tablets (25-50mg) every 6 hours as needed for (units unknown) (unknown) (unknown) (no date) (unknown) (unknown) [METOCLOPRAMIDE] (units unknown) (unknown) (unknown) (no date) (unknown) (unknown) about a week to see if that makes any difference. Discussed return precautions. (units unknown) (unknown) (unknown) (no date) (unknown) (unknown) abuse with complaint of hives and itching all over her body. She states she (units unknown) (unknown) (unknown) (no date) (unknown) (unknown) airway, difficulty with swallowing, changes to voice, fevers, worsening rash or (units unknown) (unknown) (unknown) (no date) (unknown) (unknown) alcohol intake frequency: other (units unknown) (unknown) (unknown) (no date) (unknown) (unknown) alcohol intake: current (units unknown) (unknown) (unknown) (no date) (unknown) (unknown) and below (units unknown) (unknown) (unknown) (no date) (unknown) (unknown) any dysuria, urgency or frequency. She denies any blistering or changes to the (units unknown) (unknown) (unknown) (no date) (unknown) (unknown) appears to be in mil d distress. (units unknown) (unknown) (unknown) (no date) (unknown) (unknown) areas of erythema throughout her torso and extremities and neck, not appreciated (units unknown) (unknown) (unknown) (no date) (unknown) (unknown) aware of. Patient's afebrile. She is had approximately 6 hours of symptoms (units unknown) (unknown) (unknown) (no date) (unknown) (unknown) blistering or sloughing off of gin, persistent vomiting, lightheadedness or (units unknown) (unknown) (unknown) (no date) (unknown) (unknown) conjunctival pallor. Throat is clear without any exudates, erythema, tonsillar (units unknown) (unknown) (unknown) (no date) (unknown) (unknown) continuing to progress so was not given epinephrine initially. (units unknown) (unknown) (unknown) (no date) (unknown) (unknown) current occupational exposures/hazards: Yes (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 with Pandemic ) (units unknown) (unknown) (unknown) (no date) (unknown) (unknown) education level: college (units unknown) (unknown) (unknown) (no date) (unknown) (unknown) enlargement or uvula r deviation, no swelling of the lips, oropharynx or face. (units unknown) (unknown) (unknown) (no date) (unknown) (unknown) episode in the past when she received Reglan. 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 No camping or outdoor exposures (units unknown) (unknown) (unknown) (no date) (unknown) (unknown) had nausea and 1 or 2 episodes of vomiting. She states no diarrhea. She denies (units unknown) (unknown) (unknown) (no date) (unknown) (unknown) headache, no vision changes. No chest pain or shortness of breath. She does (units unknown) (unknown) (unknown) (no date) (unknown) (unknown) household members: significant other (units unknown) (unknown) (unknown) (no date) (unknown) (unknown) hydrocodone [HYDROCODONE] AdvReac Unknown VOMITING Verified 07/12/22 16:18 (units unknown) (unknown) (unknown) (no date) (unknown) (unknown) hydroxyzine HCl 50 m g tablet 50 mg PO PRN PRN Anxiety 07/13/22 08/09/22 (units unknown) (unknown) (unknown) (no date) (unknown) (unknown) hydroxyzine HCl 50 m g tablet (units unknown) (unknown) (unknown) (no date) (unknown) (unknown) involvement in his had 6 hours with symptoms present but not seeming to be (units unknown) (unknown) (unknown) (no date) (unknown) (unknown) longstanding without any recent medication changes. She has had reactions to (units unknown) (unknown) (unknown) (no date) (unknown) (unknown) marital status: (units unknown) (unknown) (unknown) (no date) (unknown) (unknown) masses noted, no hepatosplenomegaly (units unknown) (unknown) (unknown) (no date) (unknown) (unknown) medications and she is unaware of any other new exposures or potential causes. (units unknown) (unknown) (unknown) (no date) (unknown) (unknown) metoclopramide Allergy Mild RASH/HIVES Verified 07/12/22 16:18 (units unknown) (unknown) (unknown) (no date) (unknown) (unknown) metoclopramide or Reglan and hydrocodone and states this feels similar. She (units unknown) (unknown) (unknown) (no date) (unknown) (unknown) might be a potential source for your symptoms today. (units unknown) (unknown) (unknown) (no date) (unknown) (unknown) morning with rash an d pruritus all over. Patient states no fevers or chills no (units unknown) (unknown) (unknown) (no date) (unknown) (unknown) movements are intact , nares are clear, TMs are clear with no fluid, there is no (units unknown) (unknown) (unknown) (no date) (unknown) (unknown) new or concerning changes, (units unknown) (unknown) (unknown) (no date) (unknown) (unknown) not appreciate any swelling her lips, tongue or airway. Patient states she is (units unknown) (unknown) (unknown) (no date) (unknown) (unknown) not had any dosage changes. She denies any other new ingestions. She has not (units unknown) (unknown) (unknown) (no date) (unknown) (unknown) number of children: 1 (units unknown) (unknown) (unknown) (no date) (unknown) (unknown) occupational status: employed (units unknown) (unknown) (unknown) (no date) (unknown) (unknown) on her face. Patient does not have any blistering, vesicles, no papules. (units unknown) (unknown) (unknown) (no date) (unknown) (unknown) passing out, chest pain or shortness of breath, black or bloody stools or other (units unknown) (unknown) (unknown) (no date) (unknown) (unknown) prednisone 50 mg tablet 50 mg PO DAILY #5 tabs 10/08/22 (units unknown) (unknown) (unknown) (no date) (unknown) (unknown) prednisone 50 mg tablet (units unknown) (unknown) (unknown) (no date) (unknown) (unknown) quetiapine 300 mg tablet 300 mg PO DAILY 07/13/22 08/09/22 (units unknown) (unknown) (unknown) (no date) (unknown) (unknown) quetiapine 300 mg tablet (units unknown) (unknown) (unknown) (no date) (unknown) (unknown) second hand exposure : No (growing up as a child - not currently) (units unknown) (unknown) (unknown) (no date) (unknown) (unknown) shaky. No passing ou t or dizziness. Patient states she has had 1 similar (units unknown) (unknown) (unknown) (no date) (unknown) (unknown) she is on the Seroquel for insomnia discussed this is unlikely but possible (units unknown) (unknown) (unknown) (no date) (unknown) (unknown) she received Solu-Medrol, Benadryl 25 mg and Pepcid. She has not had any airway (units unknown) (unknown) (unknown) (no date) (unknown) (unknown) she takes Seroquel daily she states she is been on this for some time. She has (units unknown) (unknown) (unknown) (no date) (unknown) (unknown) skin other than the red spotty rash and itching. Patient states she feels (units unknown) (unknown) (unknown) (no date) (unknown) (unknown) source of symptoms she has not had any increase in dosage change. Discussed (units unknown) (unknown) (unknown) (no date) (unknown) (unknown) special renee needs: No (units unknown) (unknown) (unknown) (no date) (unknown) (unknown) starting to clear, she still is itchy but is having improvement. Patient notes (units unknown) (unknown) (unknown) (no date) (unknown) (unknown) states no recent ingestion of these medications she states no other new (units unknown) (unknown) (unknown) (no date) (unknown) (unknown) substance use type: does not use (units unknown) (unknown) (unknown) (no date) (unknown) (unknown) symmetrically (units unknown) (unknown) (unknown) (no date) (unknown) (unknown) symptoms. (units unknown) (unknown) (unknown) (no date) (unknown) (unknown) that she is aware of . Patient has had prior D+C denies any other surgeries. (units unknown) (unknown) (unknown) (no date) (unknown) (unknown) tolerate. Once your symptoms have resolved to can restart this to see if this (units unknown) (unknown) (unknown) (no date) (unknown) (unknown) upper and lower extremities (units unknown) (unknown) (unknown) (no date) (unknown) (unknown) went to bed about 8:00 a.m. last night she states she felt fine she woke up this (units unknown) (unknown) (unknown) (no date) (unknown) (unknown) with patient would take medications if not clearing would stop her Seroquel for (units unknown) (unknown) (unknown) (no date) (unknown) (unknown) woke up with these did not have them present last night when she went to bed at (units unknown) (unknown) Result panel [id number] (unknown) (no date) (unknown) (unknown) (no value) (units unknown) (unknown) (unknown) (no date) (unknown) (unknown) [id number] (units unknown) (unknown) (unknown) (no date) (unknown) (unknown) 10/08/22 (units unknown) (unknown) (unknown) (no date) (unknown) (unknown) 08:29 10/08/22 (units unknown) (unknown) (unknown) (no date) (unknown) (unknown) 08:38 10/08/22 (units unknown) (unknown) (unknown) (no date) (unknown) (unknown) 08:38 (units unknown) (unknown) (unknown) (no date) (unknown) (unknown) 09:13 10/08/22 (units unknown) (unknown) (unknown) (no date) (unknown) (unknown) 09:13 (units unknown) (unknown) (unknown) (no date) (unknown) (unknown) 300 mg PO DAILY (units unknown) (unknown) (unknown) (no date) (unknown) (unknown) 40 mg PO DAILY Qty: 7 0RF (units unknown) (unknown) (unknown) (no date) (unknown) (unknown) 50 mg PO DAILY Qty: 5 0RF (units unknown) (unknown) (unknown) (no date) (unknown) (unknown) 50 mg PO PRN PRN (Reason: Anxiety) (units unknown) (unknown) (unknown) (no date) (unknown) (unknown) 8:00 p.m.. Patient did take some oral Benadryl at home at about 6:00 a.m. so (units unknown) (unknown) (unknown) (no date) (unknown) (unknown) ABD:bowel sounds normal, soft, non-tender, no guarding, rebound, rigidity, no (units unknown) (unknown) (unknown) (no date) (unknown) (unknown) Activity Restrictions/Addition al Instructions: (units unknown) (unknown) (unknown) (no date) (unknown) (unknown) Age/Sex: 32 / F (units unknown) (unknown) (unknown) (no date) (unknown) (unknown) Alcohol withdrawal delirium, acute, hyperactive (units unknown) (unknown) (unknown) (no date) (unknown) (unknown) Alcoholism (units unknown) (unknown) (unknown) (no date) (unknown) (unknown) All questions answered. (units unknown) (unknown) (unknown) (no date) (unknown) (unknown) Allergic reaction (units unknown) (unknown) (unknown) (no date) (unknown) (unknown) Allergies (units unknown) (unknown) (unknown) (no date) (unknown) (unknown) Allergy/AdvReac Type Severity Reaction Status Date / Time (units unknown) (unknown) (unknown) (no date) (unknown) (unknown) Anemia (-2018) (units unknown) (unknown) (unknown) (no date) (unknown) (unknown) Blood Pressure 101/6 0 10/08/ 08:29 (units unknown) (unknown) (unknown) (no date) (unknown) (unknown) Blood Pressure 101/6 0 118/66 (units unknown) (unknown) (unknown) (no date) (unknown) (unknown) Blood Pressure 105/64 (units unknown) (unknown) (unknown) (no date) (unknown) (unknown) Chief complaint: Skin/Abscess/Foreign Body (units unknown) (unknown) (unknown) (no date) (unknown) (unknown) Clinical Impression: (units unknown) (unknown) (unknown) (no date) (unknown) (unknown) Continue with Pepcid 40 mg daily. (units unknown) (unknown) (unknown) (no date) (unknown) (unknown) Course (units unknown) (unknown) (unknown) (no date) (unknown) (unknown) : 1990 Acct:[id number] (units unknown) (unknown) (unknown) (no date) (unknown) (unknown) Date of Service: 10/08/22 (units unknown) (unknown) (unknown) (no date) (unknown) (unknown) Departure (units unknown) (unknown) (unknown) (no date) (unknown) (unknown) Diphenhydramine HCl (Diphenhydramine 50 Mg/Ml Vial) 25 mg IV NOW ONE (units unknown) (unknown) (unknown) (no date) (unknown) (unknown) Discharge Plan (units unknown) (unknown) (unknown) (no date) (unknown) (unknown) Discontinued Medications (units unknown) (unknown) (unknown) (no date) (unknown) (unknown) Documented By: RB (units unknown) (unknown) (unknown) (no date) (unknown) (unknown) ER Physician: Nahed Cuevas D.O. (units unknown) (unknown) (unknown) (no date) (unknown) (unknown) Emergency Report (units unknown) (unknown) (unknown) (no date) (unknown) (unknown) Exam Narrative: (units unknown) (unknown) (unknown) (no date) (unknown) (unknown) Exam (units unknown) (unknown) (unknown) (no date) (unknown) (unknown) Family History (units unknown) (unknown) (unknown) (no date) (unknown) (unknown) Family/Other Alcoholism (units unknown) (unknown) (unknown) (no date) (unknown) (unknown) Family/Other Diabete s mellitus (units unknown) (unknown) (unknown) (no date) (unknown) (unknown) Famotidine (Famotidine 20 Mg/2 Ml Vial) 20 mg IV NOW SANDY (units unknown) (unknown) (unknown) (no date) (unknown) (unknown) Father Alcoholism (units unknown) (unknown) (unknown) (no date) (unknown) (unknown) Tonia Schneider MD [Physician] (units unknown) (unknown) (unknown) (no date) (unknown) (unknown) GEN: well nourished, well appearing female, alert and oriented x 3, patient (units unknown) (unknown) (unknown) (no date) (unknown) (unknown) :No CVA tenderness (units unknown) (unknown) (unknown) (no date) (unknown) (unknown) General (units unknown) (unknown) (unknown) (no date) (unknown) (unknown) Grandfather Smoker (units unknown) (unknown) (unknown) (no date) (unknown) (unknown) Grandfather Unknown whether patient has any health problems (units unknown) (unknown) (unknown) (no date) (unknown) (unknown) Grandmother Diabetes mellitus (units unknown) (unknown) (unknown) (no date) (unknown) (unknown) Grandmother Hypoglycemia (units unknown) (unknown) (unknown) (no date) (unknown) (unknown) H/O dilation and curettage (-12/14/16) (units unknown) (unknown) (unknown) (no date) (unknown) (unknown) H/O wisdom tooth extraction () (units unknown) (unknown) (unknown) (no date) (unknown) (unknown) HEART: Regular rate and rhythm without murmur, clicks, rubs. Pulses are equal in (units unknown) (unknown) (unknown) (no date) (unknown) (unknown) HEENT: Atraumatic, pupils are equal round reactive to light, extraocular (units unknown) (unknown) (unknown) (no date) (unknown) (unknown) HPI - Skin/Abscess/Foreign Bdy (units unknown) (unknown) (unknown) (no date) (unknown) (unknown) HPI narrative: (units unknown) (unknown) (unknown) (no date) (unknown) (unknown) History of Present Illness (units unknown) (unknown) (unknown) (no date) (unknown) (unknown) Home Medications (units unknown) (unknown) (unknown) (no date) (unknown) (unknown) I would try holding your Seroquel for the next several days if you are able to (units unknown) (unknown) (unknown) (no date) (unknown) (unknown) Initial Vital Signs (units unknown) (unknown) (unknown) (no date) (unknown) (unknown) Initial Vital Signs: (units unknown) (unknown) (unknown) (no date) (unknown) (unknown) Insomnia (units unknown) (unknown) (unknown) (no date) (unknown) (unknown) Instructions: Anaphylaxis (units unknown) (unknown) (unknown) (no date) (unknown) (unknown) [address] [address] (units unknown) (unknown) (unknown) (no date) (unknown) (unknown) LUNGS:Lungs clear to auscultation, no wheezes, rales, crackles, chest moves (units unknown) (unknown) (unknown) (no date) (unknown) (unknown) Last Admin: 10/08/22 09:00 Dose: 125 mg (units unknown) (unknown) (unknown) (no date) (unknown) (unknown) Last Admin: 10/08/22 09:01 Dose: 20 mg (units unknown) (unknown) (unknown) (no date) (unknown) (unknown) Last Admin: 10/08/22 09:01 Dose: 25 mg (units unknown) (unknown) (unknown) (no date) (unknown) (unknown) Limitations: no limitations (units unknown) (unknown) (unknown) (no date) (unknown) (unknown) MDM - Skin/Abscess/Foreign Bdy (units unknown) (unknown) (unknown) (no date) (unknown) (unknown) MDM Narrative (units unknown) (unknown) (unknown) (no date) (unknown) (unknown) MSCL: Non-tender, no muscle atrophy, muscles strength 5/5 upper and lower (units unknown) (unknown) (unknown) (no date) (unknown) (unknown) Medical History (units unknown) (unknown) (unknown) (no date) (unknown) (unknown) Medical decision making narrative: (units unknown) (unknown) (unknown) (no date) (unknown) (unknown) Medication Instructions Recorded Confirmed (units unknown) (unknown) (unknown) (no date) (unknown) (unknown) Medication Instructions Recorded (units unknown) (unknown) (unknown) (no date) (unknown) (unknown) Menometrorrhagia (units unknown) (unknown) (unknown) (no date) (unknown) (unknown) Methylprednisolone (Methylprednisolone 125 Mg/2 Ml Vial) 125 mg IV NOW ONE (units unknown) (unknown) (unknown) (no date) (unknown) (unknown) Mode of arrival: Ambulatory (units unknown) (unknown) (unknown) (no date) (unknown) (unknown) Mother Diabetes mellitus (units unknown) (unknown) (unknown) (no date) (unknown) (unknown) NEURO:CN 2-12 intact , sensation normal (units unknown) (unknown) (unknown) (no date) (unknown) (unknown) Narrative (units unknown) (unknown) (unknown) (no date) (unknown) (unknown) New (units unknown) (unknown) (unknown) (no date) (unknown) (unknown) No Action (units unknown) (unknown) (unknown) (no date) (unknown) (unknown) No muffled voice or hoarseness. No stridor. (units unknown) (unknown) (unknown) (no date) (unknown) (unknown) Obesity (units unknown) (unknown) (unknown) (no date) (unknown) (unknown) On recheck about 1/2 hour after medications were given patient's rash is (units unknown) (unknown) (unknown) (no date) (unknown) (unknown) Ordered: (units unknown) (unknown) (unknown) (no date) (unknown) (unknown) Orders (units unknown) (unknown) (unknown) (no date) (unknown) (unknown) Overweight (units unknown) (unknown) (unknown) (no date) (unknown) (unknown) Oxygen Delivery Method Room Air 10/08/22 08:29 (units unknown) (unknown) (unknown) (no date) (unknown) (unknown) Oxygen Delivery Method Room Air (units unknown) (unknown) (unknown) (no date) (unknown) (unknown) Oxygen Delivery Method (units unknown) (unknown) (unknown) (no date) (unknown) (unknown) Patient Disposition: Home (units unknown) (unknown) (unknown) (no date) (unknown) (unknown) Patient History (units unknown) (unknown) (unknown) (no date) (unknown) (unknown) Patient denies tobacco, alcohol or illicit. (units unknown) (unknown) (unknown) (no date) (unknown) (unknown) Patient is no excoriation but is scratching all over. (units unknown) (unknown) (unknown) (no date) (unknown) (unknown) Patient: Sarah Connors MR#: [id number] (units unknown) (unknown) (unknown) (no date) (unknown) (unknown) Please follow-up for recheck, I hope you continue to feel better. (units unknown) (unknown) (unknown) (no date) (unknown) (unknown) Please return for ne w or worsening symptoms, swelling of your lips, tongue or (units unknown) (unknown) (unknown) (no date) (unknown) (unknown) Prescription sent to [facility] (units unknown) (unknown) (unknown) (no date) (unknown) (unknown) Prescriptions: (units unknown) (unknown) (unknown) (no date) (unknown) (unknown) Previous Rx's (units unknown) (unknown) (unknown) (no date) (unknown) (unknown) Pulse Oximetry 96 (units unknown) (unknown) (unknown) (no date) (unknown) (unknown) Pulse Oximetry 99 10/08/22 08:29 (units unknown) (unknown) (unknown) (no date) (unknown) (unknown) Pulse Oximetry 99 99 (units unknown) (unknown) (unknown) (no date) (unknown) (unknown) Pulse Rate 100 H 10/08/22 08:29 (units unknown) (unknown) (unknown) (no date) (unknown) (unknown) Pulse Rate 100 H 105 H (units unknown) (unknown) (unknown) (no date) (unknown) (unknown) Pulse Rate 99 H (units unknown) (unknown) (unknown) (no date) (unknown) (unknown) ROS Unobtainable: Al l systems reviewed + are unremarkable except as noted in HPI (units unknown) (unknown) (unknown) (no date) (unknown) (unknown) Referrals: (units unknown) (unknown) (unknown) (no date) (unknown) (unknown) Related Data (units unknown) (unknown) (unknown) (no date) (unknown) (unknown) Respiratory Rate 18 10/08/22 08:29 (units unknown) (unknown) (unknown) (no date) (unknown) (unknown) Respiratory Rate 18 (units unknown) (unknown) (unknown) (no date) (unknown) (unknown) Respiratory Rate (units unknown) (unknown) (unknown) (no date) (unknown) (unknown) Review of Systems (units unknown) (unknown) (unknown) (no date) (unknown) (unknown) S/P myringotomy with insertion of tube (units unknown) (unknown) (unknown) (no date) (unknown) (unknown) SKIN: Patient has patchy erythematous rash with hive-like wheals and smaller (units unknown) (unknown) (unknown) (no date) (unknown) (unknown) (spontaneous vaginal delivery) (-09/05/18) (units unknown) (unknown) (unknown) (no date) (unknown) (unknown) She does not have an y known environmental, food or other allergies that she is (units unknown) (unknown) (unknown) (no date) (unknown) (unknown) Signed By: (units unknown) (unknown) (unknown) (no date) (unknown) (unknown) Smoker (units unknown) (unknown) (unknown) (no date) (unknown) (unknown) Smoking Status: Former smoker (units unknown) (unknown) (unknown) (no date) (unknown) (unknown) Social History (units unknown) (unknown) (unknown) (no date) (unknown) (unknown) Source: patient (units unknown) (unknown) (unknown) (no date) (unknown) (unknown) Stand Alone Forms: Patient Portal/API (units unknown) (unknown) (unknown) (no date) (unknown) (unknown) Stated complaint: hives/N 6 hours (units unknown) (unknown) (unknown) (no date) (unknown) (unknown) Stop: 10/08/22 08:41 (units unknown) (unknown) (unknown) (no date) (unknown) (unknown) Substance Use Type: does not use (units unknown) (unknown) (unknown) (no date) (unknown) (unknown) Surgical History (units unknown) (unknown) (unknown) (no date) (unknown) (unknown) Take steroids once daily until gone. (units unknown) (unknown) (unknown) (no date) (unknown) (unknown) Temperature 97.8 F 10/08/22 08:29 (units unknown) (unknown) (unknown) (no date) (unknown) (unknown) Temperature 97.8 F (units unknown) (unknown) (unknown) (no date) (unknown) (unknown) Temperature (units unknown) (unknown) (unknown) (no date) (unknown) (unknown) This is a 32-year-ol d female with history of mood disorder and prior alcohol (units unknown) (unknown) (unknown) (no date) (unknown) (unknown) This is a 32-year-ol d female with rash that appears allergic. No known (units unknown) (unknown) (unknown) (no date) (unknown) (unknown) Time Seen by Provider: 10/08/22 08:34 (units unknown) (unknown) (unknown) (no date) (unknown) (unknown) Vital Signs - 8 hr (units unknown) (unknown) (unknown) (no date) (unknown) (unknown) Vital Signs (units unknown) (unknown) (unknown) (no date) (unknown) (unknown) Vital signs: (units unknown) (unknown) (unknown) (no date) (unknown) (unknown) You can continue wit h Benadryl 1-2 tablets (25-50mg) every 6 hours as needed for (units unknown) (unknown) (unknown) (no date) (unknown) (unknown) [METOCLOPRAMIDE] (units unknown) (unknown) (unknown) (no date) (unknown) (unknown) about a week to see if that makes any difference. Discussed return precautions. (units unknown) (unknown) (unknown) (no date) (unknown) (unknown) abuse with complaint of hives and itching all over her body. She states she (units unknown) (unknown) (unknown) (no date) (unknown) (unknown) airway, difficulty with swallowing, changes to voice, fevers, worsening rash or (units unknown) (unknown) (unknown) (no date) (unknown) (unknown) alcohol intake frequency: other (units unknown) (unknown) (unknown) (no date) (unknown) (unknown) alcohol intake: current (units unknown) (unknown) (unknown) (no date) (unknown) (unknown) and below (units unknown) (unknown) (unknown) (no date) (unknown) (unknown) any dysuria, urgency or frequency. She denies any blistering or changes to the (units unknown) (unknown) (unknown) (no date) (unknown) (unknown) appears to be in mil d distress. (units unknown) (unknown) (unknown) (no date) (unknown) (unknown) areas of erythema throughout her torso and extremities and neck, not appreciated (units unknown) (unknown) (unknown) (no date) (unknown) (unknown) aware of. Patient's afebrile. She is had approximately 6 hours of symptoms (units unknown) (unknown) (unknown) (no date) (unknown) (unknown) blistering or sloughing off of gin, persistent vomiting, lightheadedness or (units unknown) (unknown) (unknown) (no date) (unknown) (unknown) conjunctival pallor. Throat is clear without any exudates, erythema, tonsillar (units unknown) (unknown) (unknown) (no date) (unknown) (unknown) continuing to progress so was not given epinephrine initially. (units unknown) (unknown) (unknown) (no date) (unknown) (unknown) current occupational exposures/hazards: Yes (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 with Pandemic ) (units unknown) (unknown) (unknown) (no date) (unknown) (unknown) education level: college (units unknown) (unknown) (unknown) (no date) (unknown) (unknown) enlargement or uvula r deviation, no swelling of the lips, oropharynx or face. (units unknown) (unknown) (unknown) (no date) (unknown) (unknown) episode in the past when she received Reglan. 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 No camping or outdoor exposures (units unknown) (unknown) (unknown) (no date) (unknown) (unknown) had nausea and 1 or 2 episodes of vomiting. She states no diarrhea. She denies (units unknown) (unknown) (unknown) (no date) (unknown) (unknown) headache, no vision changes. No chest pain or shortness of breath. She does (units unknown) (unknown) (unknown) (no date) (unknown) (unknown) household members: significant other (units unknown) (unknown) (unknown) (no date) (unknown) (unknown) hydrocodone [HYDROCODONE] AdvReac Unknown VOMITING Verified 07/12/22 16:18 (units unknown) (unknown) (unknown) (no date) (unknown) (unknown) hydroxyzine HCl 50 m g tablet 50 mg PO PRN PRN Anxiety 07/13/22 08/09/22 (units unknown) (unknown) (unknown) (no date) (unknown) (unknown) hydroxyzine HCl 50 m g tablet (units unknown) (unknown) (unknown) (no date) (unknown) (unknown) involvement in his had 6 hours with symptoms present but not seeming to be (units unknown) (unknown) (unknown) (no date) (unknown) (unknown) longstanding without any recent medication changes. She has had reactions to (units unknown) (unknown) (unknown) (no date) (unknown) (unknown) marital status: (units unknown) (unknown) (unknown) (no date) (unknown) (unknown) masses noted, no hepatosplenomegaly (units unknown) (unknown) (unknown) (no date) (unknown) (unknown) medications and she is unaware of any other new exposures or potential causes. (units unknown) (unknown) (unknown) (no date) (unknown) (unknown) metoclopramide Allergy Mild RASH/HIVES Verified 07/12/22 16:18 (units unknown) (unknown) (unknown) (no date) (unknown) (unknown) metoclopramide or Reglan and hydrocodone and states this feels similar. She (units unknown) (unknown) (unknown) (no date) (unknown) (unknown) might be a potential source for your symptoms today. (units unknown) (unknown) (unknown) (no date) (unknown) (unknown) morning with rash an d pruritus all over. Patient states no fevers or chills no (units unknown) (unknown) (unknown) (no date) (unknown) (unknown) movements are intact , nares are clear, TMs are clear with no fluid, there is no (units unknown) (unknown) (unknown) (no date) (unknown) (unknown) new or concerning changes, (units unknown) (unknown) (unknown) (no date) (unknown) (unknown) not appreciate any swelling her lips, tongue or airway. Patient states she is (units unknown) (unknown) (unknown) (no date) (unknown) (unknown) not had any dosage changes. She denies any other new ingestions. She has not (units unknown) (unknown) (unknown) (no date) (unknown) (unknown) number of children: 1 (units unknown) (unknown) (unknown) (no date) (unknown) (unknown) occupational status: employed (units unknown) (unknown) (unknown) (no date) (unknown) (unknown) on her face. Patient does not have any blistering, vesicles, no papules. (units unknown) (unknown) (unknown) (no date) (unknown) (unknown) passing out, chest pain or shortness of breath, black or bloody stools or other (units unknown) (unknown) (unknown) (no date) (unknown) (unknown) prednisone 50 mg tablet 50 mg PO DAILY #5 tabs 10/08/22 (units unknown) (unknown) (unknown) (no date) (unknown) (unknown) prednisone 50 mg tablet (units unknown) (unknown) (unknown) (no date) (unknown) (unknown) quetiapine 300 mg tablet 300 mg PO DAILY 07/13/22 08/09/22 (units unknown) (unknown) (unknown) (no date) (unknown) (unknown) quetiapine 300 mg tablet (units unknown) (unknown) (unknown) (no date) (unknown) (unknown) second hand exposure : No (growing up as a child - not currently) (units unknown) (unknown) (unknown) (no date) (unknown) (unknown) shaky. No passing ou t or dizziness. Patient states she has had 1 similar (units unknown) (unknown) (unknown) (no date) (unknown) (unknown) she is on the Seroquel for insomnia discussed this is unlikely but possible (units unknown) (unknown) (unknown) (no date) (unknown) (unknown) she received Solu-Medrol, Benadryl 25 mg and Pepcid. She has not had any airway (units unknown) (unknown) (unknown) (no date) (unknown) (unknown) she takes Seroquel daily she states she is been on this for some time. She has (units unknown) (unknown) (unknown) (no date) (unknown) (unknown) skin other than the red spotty rash and itching. Patient states she feels (units unknown) (unknown) (unknown) (no date) (unknown) (unknown) source of symptoms she has not had any increase in dosage change. Discussed (units unknown) (unknown) (unknown) (no date) (unknown) (unknown) special renee needs: No (units unknown) (unknown) (unknown) (no date) (unknown) (unknown) starting to clear, she still is itchy but is having improvement. Patient notes (units unknown) (unknown) (unknown) (no date) (unknown) (unknown) states no recent ingestion of these medications she states no other new (units unknown) (unknown) (unknown) (no date) (unknown) (unknown) substance use type: does not use (units unknown) (unknown) (unknown) (no date) (unknown) (unknown) symmetrically (units unknown) (unknown) (unknown) (no date) (unknown) (unknown) symptoms. (units unknown) (unknown) (unknown) (no date) (unknown) (unknown) that she is aware of . Patient has had prior D+C denies any other surgeries. (units unknown) (unknown) (unknown) (no date) (unknown) (unknown) tolerate. Once your symptoms have resolved to can restart this to see if this (units unknown) (unknown) (unknown) (no date) (unknown) (unknown) upper and lower extremities (units unknown) (unknown) (unknown) (no date) (unknown) (unknown) went to bed about 8:00 a.m. last night she states she felt fine she woke up this (units unknown) (unknown) (unknown) (no date) (unknown) (unknown) with patient would take medications if not clearing would stop her Seroquel for (units unknown) (unknown) (unknown) (no date) (unknown) (unknown) woke up with these did not have them present last night when she went to bed at (units unknown) (unknown) Result panel [id number] (unknown) (no date) (unknown) (unknown) (no value) (units unknown) (unknown) (unknown) (no date) (unknown) (unknown) <Electronically signed by Nahed Cuevas D.O.> (units unknown) (unknown) (unknown) (no date) (unknown) (unknown) [id number] (units unknown) (unknown) (unknown) (no date) (unknown) (unknown) 10/08/22 1904 (units unknown) (unknown) (unknown) (no date) (unknown) (unknown) 10/08/22 (units unknown) (unknown) (unknown) (no date) (unknown) (unknown) 08:29 10/08/22 (units unknown) (unknown) (unknown) (no date) (unknown) (unknown) 08:38 10/08/22 (units unknown) (unknown) (unknown) (no date) (unknown) (unknown) 08:38 (units unknown) (unknown) (unknown) (no date) (unknown) (unknown) 09:13 10/08/22 (units unknown) (unknown) (unknown) (no date) (unknown) (unknown) 09:13 (units unknown) (unknown) (unknown) (no date) (unknown) (unknown) 300 mg PO DAILY (units unknown) (unknown) (unknown) (no date) (unknown) (unknown) 40 mg PO DAILY Qty: 7 0RF (units unknown) (unknown) (unknown) (no date) (unknown) (unknown) 50 mg PO DAILY Qty: 5 0RF (units unknown) (unknown) (unknown) (no date) (unknown) (unknown) 50 mg PO PRN PRN (Reason: Anxiety) (units unknown) (unknown) (unknown) (no date) (unknown) (unknown) 8:00 p.m.. Patient did take some oral Benadryl at home at about 6:00 a.m. so (units unknown) (unknown) (unknown) (no date) (unknown) (unknown) ABD:bowel sounds normal, soft, non-tender, no guarding, rebound, rigidity, no (units unknown) (unknown) (unknown) (no date) (unknown) (unknown) Activity Restrictions/Addition al Instructions: (units unknown) (unknown) (unknown) (no date) (unknown) (unknown) Age/Sex: 32 / F (units unknown) (unknown) (unknown) (no date) (unknown) (unknown) Alcohol withdrawal delirium, acute, hyperactive (units unknown) (unknown) (unknown) (no date) (unknown) (unknown) Alcoholism (units unknown) (unknown) (unknown) (no date) (unknown) (unknown) All questions answered. (units unknown) (unknown) (unknown) (no date) (unknown) (unknown) Allergic reaction (units unknown) (unknown) (unknown) (no date) (unknown) (unknown) Allergies (units unknown) (unknown) (unknown) (no date) (unknown) (unknown) Allergy/AdvReac Type Severity Reaction Status Date / Time (units unknown) (unknown) (unknown) (no date) (unknown) (unknown) Anemia (-2018) (units unknown) (unknown) (unknown) (no date) (unknown) (unknown) Blood Pressure 101/6 0 10/08/22 08:29 (units unknown) (unknown) (unknown) (no date) (unknown) (unknown) Blood Pressure 101/6 0 118/66 (units unknown) (unknown) (unknown) (no date) (unknown) (unknown) Blood Pressure 105/64 (units unknown) (unknown) (unknown) (no date) (unknown) (unknown) Chief complaint: Skin/Abscess/Foreign Body (units unknown) (unknown) (unknown) (no date) (unknown) (unknown) Clinical Impression: (units unknown) (unknown) (unknown) (no date) (unknown) (unknown) Continue with Pepcid 40 mg daily. (units unknown) (unknown) (unknown) (no date) (unknown) (unknown) Course (units unknown) (unknown) (unknown) (no date) (unknown) (unknown) : 1990 Acct:[id number] (units unknown) (unknown) (unknown) (no date) (unknown) (unknown) Date of Service: 10/08/22 (units unknown) (unknown) (unknown) (no date) (unknown) (unknown) Departure (units unknown) (unknown) (unknown) (no date) (unknown) (unknown) Diphenhydramine HCl (Diphenhydramine 50 Mg/Ml Vial) 25 mg IV NOW ONE (units unknown) (unknown) (unknown) (no date) (unknown) (unknown) Discharge Plan (units unknown) (unknown) (unknown) (no date) (unknown) (unknown) Discontinued Medications (units unknown) (unknown) (unknown) (no date) (unknown) (unknown) Documented By: RB (units unknown) (unknown) (unknown) (no date) (unknown) (unknown) ER Physician: Nahed Cuevas D.O. (units unknown) (unknown) (unknown) (no date) (unknown) (unknown) Emergency Report (units unknown) (unknown) (unknown) (no date) (unknown) (unknown) Exam Narrative: (units unknown) (unknown) (unknown) (no date) (unknown) (unknown) Exam (units unknown) (unknown) (unknown) (no date) (unknown) (unknown) Family History (units unknown) (unknown) (unknown) (no date) (unknown) (unknown) Family/Other Alcoholism (units unknown) (unknown) (unknown) (no date) (unknown) (unknown) Family/Other Diabete s mellitus (units unknown) (unknown) (unknown) (no date) (unknown) (unknown) Famotidine (Famotidine 20 Mg/2 Ml Vial) 20 mg IV NOW SANDY (units unknown) (unknown) (unknown) (no date) (unknown) (unknown) Father Alcoholism (units unknown) (unknown) (unknown) (no date) (unknown) (unknown) Tonia Schneider MD [Physician] (units unknown) (unknown) (unknown) (no date) (unknown) (unknown) GEN: well nourished, well appearing female, alert and oriented x 3, patient (units unknown) (unknown) (unknown) (no date) (unknown) (unknown) :No CVA tenderness (units unknown) (unknown) (unknown) (no date) (unknown) (unknown) General (units unknown) (unknown) (unknown) (no date) (unknown) (unknown) Grandfather Smoker (units unknown) (unknown) (unknown) (no date) (unknown) (unknown) Grandfather Unknown whether patient has any health problems (units unknown) (unknown) (unknown) (no date) (unknown) (unknown) Grandmother Diabetes mellitus (units unknown) (unknown) (unknown) (no date) (unknown) (unknown) Grandmother Hypoglycemia (units unknown) (unknown) (unknown) (no date) (unknown) (unknown) H/O dilation and curettage (-12/14/16) (units unknown) (unknown) (unknown) (no date) (unknown) (unknown) H/O wisdom tooth extraction () (units unknown) (unknown) (unknown) (no date) (unknown) (unknown) HEART: Regular rate and rhythm without murmur, clicks, rubs. Pulses are equal in (units unknown) (unknown) (unknown) (no date) (unknown) (unknown) HEENT: Atraumatic, pupils are equal round reactive to light, extraocular (units unknown) (unknown) (unknown) (no date) (unknown) (unknown) HPI - Skin/Abscess/Foreign Bdy (units unknown) (unknown) (unknown) (no date) (unknown) (unknown) HPI narrative: (units unknown) (unknown) (unknown) (no date) (unknown) (unknown) History of Present Illness (units unknown) (unknown) (unknown) (no date) (unknown) (unknown) Home Medications (units unknown) (unknown) (unknown) (no date) (unknown) (unknown) I would try holding your Seroquel for the next several days if you are able to (units unknown) (unknown) (unknown) (no date) (unknown) (unknown) Initial Vital Signs (units unknown) (unknown) (unknown) (no date) (unknown) (unknown) Initial Vital Signs: (units unknown) (unknown) (unknown) (no date) (unknown) (unknown) Insomnia (units unknown) (unknown) (unknown) (no date) (unknown) (unknown) Instructions: Anaphylaxis (units unknown) (unknown) (unknown) (no date) (unknown) (unknown) [address] [address] (units unknown) (unknown) (unknown) (no date) (unknown) (unknown) LUNGS:Lungs clear to auscultation, no wheezes, rales, crackles, chest moves (units unknown) (unknown) (unknown) (no date) (unknown) (unknown) Last Admin: 10/08/22 09:00 Dose: 125 mg (units unknown) (unknown) (unknown) (no date) (unknown) (unknown) Last Admin: 10/08/22 09:01 Dose: 20 mg (units unknown) (unknown) (unknown) (no date) (unknown) (unknown) Last Admin: 10/08/22 09:01 Dose: 25 mg (units unknown) (unknown) (unknown) (no date) (unknown) (unknown) Limitations: no limitations (units unknown) (unknown) (unknown) (no date) (unknown) (unknown) MDM - Skin/Abscess/Foreign Bdy (units unknown) (unknown) (unknown) (no date) (unknown) (unknown) MDM Narrative (units unknown) (unknown) (unknown) (no date) (unknown) (unknown) MSCL: Non-tender, no muscle atrophy, muscles strength 5/5 upper and lower (units unknown) (unknown) (unknown) (no date) (unknown) (unknown) Medical History (units unknown) (unknown) (unknown) (no date) (unknown) (unknown) Medical decision making narrative: (units unknown) (unknown) (unknown) (no date) (unknown) (unknown) Medication Instructions Recorded Confirmed (units unknown) (unknown) (unknown) (no date) (unknown) (unknown) Medication Instructions Recorded (units unknown) (unknown) (unknown) (no date) (unknown) (unknown) Menometrorrhagia (units unknown) (unknown) (unknown) (no date) (unknown) (unknown) Methylprednisolone (Methylprednisolone 125 Mg/2 Ml Vial) 125 mg IV NOW ONE (units unknown) (unknown) (unknown) (no date) (unknown) (unknown) Mode of arrival: Ambulatory (units unknown) (unknown) (unknown) (no date) (unknown) (unknown) Mother Diabetes mellitus (units unknown) (unknown) (unknown) (no date) (unknown) (unknown) NEURO:CN 2-12 intact , sensation normal (units unknown) (unknown) (unknown) (no date) (unknown) (unknown) Narrative (units unknown) (unknown) (unknown) (no date) (unknown) (unknown) New (units unknown) (unknown) (unknown) (no date) (unknown) (unknown) No Action (units unknown) (unknown) (unknown) (no date) (unknown) (unknown) No muffled voice or hoarseness. No stridor. (units unknown) (unknown) (unknown) (no date) (unknown) (unknown) Obesity (units unknown) (unknown) (unknown) (no date) (unknown) (unknown) On recheck about 1/2 hour after medications were given patient's rash is (units unknown) (unknown) (unknown) (no date) (unknown) (unknown) Ordered: (units unknown) (unknown) (unknown) (no date) (unknown) (unknown) Orders (units unknown) (unknown) (unknown) (no date) (unknown) (unknown) Overweight (units unknown) (unknown) (unknown) (no date) (unknown) (unknown) Oxygen Delivery Method Room Air 10/08/22 08:29 (units unknown) (unknown) (unknown) (no date) (unknown) (unknown) Oxygen Delivery Method Room Air (units unknown) (unknown) (unknown) (no date) (unknown) (unknown) Oxygen Delivery Method (units unknown) (unknown) (unknown) (no date) (unknown) (unknown) Patient Disposition: Home (units unknown) (unknown) (unknown) (no date) (unknown) (unknown) Patient History (units unknown) (unknown) (unknown) (no date) (unknown) (unknown) Patient denies tobacco, alcohol or illicit. (units unknown) (unknown) (unknown) (no date) (unknown) (unknown) Patient is no excoriation but is scratching all over. (units unknown) (unknown) (unknown) (no date) (unknown) (unknown) Patient: Sarah Connors MR#: [id number] (units unknown) (unknown) (unknown) (no date) (unknown) (unknown) Please follow-up for recheck, I hope you continue to feel better. (units unknown) (unknown) (unknown) (no date) (unknown) (unknown) Please return for ne w or worsening symptoms, swelling of your lips, tongue or (units unknown) (unknown) (unknown) (no date) (unknown) (unknown) Prescription sent to [facility] (units unknown) (unknown) (unknown) (no date) (unknown) (unknown) Prescriptions: (units unknown) (unknown) (unknown) (no date) (unknown) (unknown) Previous Rx's (units unknown) (unknown) (unknown) (no date) (unknown) (unknown) Pulse Oximetry 96 (units unknown) (unknown) (unknown) (no date) (unknown) (unknown) Pulse Oximetry 99 10/08/22 08:29 (units unknown) (unknown) (unknown) (no date) (unknown) (unknown) Pulse Oximetry 99 99 (units unknown) (unknown) (unknown) (no date) (unknown) (unknown) Pulse Rate 100 H 10/08/22 08:29 (units unknown) (unknown) (unknown) (no date) (unknown) (unknown) Pulse Rate 100 H 105 H (units unknown) (unknown) (unknown) (no date) (unknown) (unknown) Pulse Rate 99 H (units unknown) (unknown) (unknown) (no date) (unknown) (unknown) ROS Unobtainable: Al l systems reviewed + are unremarkable except as noted in HPI (units unknown) (unknown) (unknown) (no date) (unknown) (unknown) Referrals: (units unknown) (unknown) (unknown) (no date) (unknown) (unknown) Related Data (units unknown) (unknown) (unknown) (no date) (unknown) (unknown) Respiratory Rate 18 10/08/22 08:29 (units unknown) (unknown) (unknown) (no date) (unknown) (unknown) Respiratory Rate 18 (units unknown) (unknown) (unknown) (no date) (unknown) (unknown) Respiratory Rate (units unknown) (unknown) (unknown) (no date) (unknown) (unknown) Review of Systems (units unknown) (unknown) (unknown) (no date) (unknown) (unknown) S/P myringotomy with insertion of tube (units unknown) (unknown) (unknown) (no date) (unknown) (unknown) SKIN: Patient has patchy erythematous rash with hive-like wheals and smaller (units unknown) (unknown) (unknown) (no date) (unknown) (unknown) (spontaneous vaginal delivery) (-09/05/18) (units unknown) (unknown) (unknown) (no date) (unknown) (unknown) She does not have an y known environmental, food or other allergies that she is (units unknown) (unknown) (unknown) (no date) (unknown) (unknown) Signed By: (units unknown) (unknown) (unknown) (no date) (unknown) (unknown) Smoker (units unknown) (unknown) (unknown) (no date) (unknown) (unknown) Smoking Status: Former smoker (units unknown) (unknown) (unknown) (no date) (unknown) (unknown) Social History (units unknown) (unknown) (unknown) (no date) (unknown) (unknown) Source: patient (units unknown) (unknown) (unknown) (no date) (unknown) (unknown) Stand Alone Forms: Patient Portal/API (units unknown) (unknown) (unknown) (no date) (unknown) (unknown) Stated complaint: hives/N 6 hours (units unknown) (unknown) (unknown) (no date) (unknown) (unknown) Stop: 10/08/22 08:41 (units unknown) (unknown) (unknown) (no date) (unknown) (unknown) Substance Use Type: does not use (units unknown) (unknown) (unknown) (no date) (unknown) (unknown) Surgical History (units unknown) (unknown) (unknown) (no date) (unknown) (unknown) Take steroids once daily until gone. (units unknown) (unknown) (unknown) (no date) (unknown) (unknown) Temperature 97.8 F 10/08/22 08:29 (units unknown) (unknown) (unknown) (no date) (unknown) (unknown) Temperature 97.8 F (units unknown) (unknown) (unknown) (no date) (unknown) (unknown) Temperature (units unknown) (unknown) (unknown) (no date) (unknown) (unknown) This is a 32-year-ol d female with history of mood disorder and prior alcohol (units unknown) (unknown) (unknown) (no date) (unknown) (unknown) This is a 32-year-ol d female with rash that appears allergic. No known (units unknown) (unknown) (unknown) (no date) (unknown) (unknown) Time Seen by Provider: 10/08/22 08:34 (units unknown) (unknown) (unknown) (no date) (unknown) (unknown) Vital Signs - 8 hr (units unknown) (unknown) (unknown) (no date) (unknown) (unknown) Vital Signs (units unknown) (unknown) (unknown) (no date) (unknown) (unknown) Vital signs: (units unknown) (unknown) (unknown) (no date) (unknown) (unknown) You can continue wit h Benadryl 1-2 tablets (25-50mg) every 6 hours as needed for (units unknown) (unknown) (unknown) (no date) (unknown) (unknown) [METOCLOPRAMIDE] (units unknown) (unknown) (unknown) (no date) (unknown) (unknown) about a week to see if that makes any difference. Discussed return precautions. (units unknown) (unknown) (unknown) (no date) (unknown) (unknown) abuse with complaint of hives and itching all over her body. She states she (units unknown) (unknown) (unknown) (no date) (unknown) (unknown) airway, difficulty with swallowing, changes to voice, fevers, worsening rash or (units unknown) (unknown) (unknown) (no date) (unknown) (unknown) alcohol intake frequency: other (units unknown) (unknown) (unknown) (no date) (unknown) (unknown) alcohol intake: current (units unknown) (unknown) (unknown) (no date) (unknown) (unknown) and below (units unknown) (unknown) (unknown) (no date) (unknown) (unknown) any dysuria, urgency or frequency. She denies any blistering or changes to the (units unknown) (unknown) (unknown) (no date) (unknown) (unknown) appears to be in mil d distress. (units unknown) (unknown) (unknown) (no date) (unknown) (unknown) areas of erythema throughout her torso and extremities and neck, not appreciated (units unknown) (unknown) (unknown) (no date) (unknown) (unknown) aware of. Patient's afebrile. She is had approximately 6 hours of symptoms (units unknown) (unknown) (unknown) (no date) (unknown) (unknown) blistering or sloughing off of gin, persistent vomiting, lightheadedness or (units unknown) (unknown) (unknown) (no date) (unknown) (unknown) conjunctival pallor. Throat is clear without any exudates, erythema, tonsillar (units unknown) (unknown) (unknown) (no date) (unknown) (unknown) continuing to progress so was not given epinephrine initially. (units unknown) (unknown) (unknown) (no date) (unknown) (unknown) current occupational exposures/hazards: Yes (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 with Pandemic ) (units unknown) (unknown) (unknown) (no date) (unknown) (unknown) education level: college (units unknown) (unknown) (unknown) (no date) (unknown) (unknown) enlargement or uvula r deviation, no swelling of the lips, oropharynx or face. (units unknown) (unknown) (unknown) (no date) (unknown) (unknown) episode in the past when she received Reglan. 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 No camping or outdoor exposures (units unknown) (unknown) (unknown) (no date) (unknown) (unknown) had nausea and 1 or 2 episodes of vomiting. She states no diarrhea. She denies (units unknown) (unknown) (unknown) (no date) (unknown) (unknown) headache, no vision changes. No chest pain or shortness of breath. She does (units unknown) (unknown) (unknown) (no date) (unknown) (unknown) household members: significant other (units unknown) (unknown) (unknown) (no date) (unknown) (unknown) hydrocodone [HYDROCODONE] AdvReac Unknown VOMITING Verified 07/12/22 16:18 (units unknown) (unknown) (unknown) (no date) (unknown) (unknown) hydroxyzine HCl 50 m g tablet 50 mg PO PRN PRN Anxiety 07/13/22 08/09/22 (units unknown) (unknown) (unknown) (no date) (unknown) (unknown) hydroxyzine HCl 50 m g tablet (units unknown) (unknown) (unknown) (no date) (unknown) (unknown) involvement in his had 6 hours with symptoms present but not seeming to be (units unknown) (unknown) (unknown) (no date) (unknown) (unknown) longstanding without any recent medication changes. She has had reactions to (units unknown) (unknown) (unknown) (no date) (unknown) (unknown) marital status: (units unknown) (unknown) (unknown) (no date) (unknown) (unknown) masses noted, no hepatosplenomegaly (units unknown) (unknown) (unknown) (no date) (unknown) (unknown) medications and she is unaware of any other new exposures or potential causes. (units unknown) (unknown) (unknown) (no date) (unknown) (unknown) metoclopramide Allergy Mild RASH/HIVES Verified 07/12/22 16:18 (units unknown) (unknown) (unknown) (no date) (unknown) (unknown) metoclopramide or Reglan and hydrocodone and states this feels similar. She (units unknown) (unknown) (unknown) (no date) (unknown) (unknown) might be a potential source for your symptoms today. (units unknown) (unknown) (unknown) (no date) (unknown) (unknown) morning with rash an d pruritus all over. Patient states no fevers or chills no (units unknown) (unknown) (unknown) (no date) (unknown) (unknown) movements are intact , nares are clear, TMs are clear with no fluid, there is no (units unknown) (unknown) (unknown) (no date) (unknown) (unknown) new or concerning changes, (units unknown) (unknown) (unknown) (no date) (unknown) (unknown) not appreciate any swelling her lips, tongue or airway. Patient states she is (units unknown) (unknown) (unknown) (no date) (unknown) (unknown) not had any dosage changes. She denies any other new ingestions. She has not (units unknown) (unknown) (unknown) (no date) (unknown) (unknown) number of children: 1 (units unknown) (unknown) (unknown) (no date) (unknown) (unknown) occupational status: employed (units unknown) (unknown) (unknown) (no date) (unknown) (unknown) on her face. Patient does not have any blistering, vesicles, no papules. (units unknown) (unknown) (unknown) (no date) (unknown) (unknown) passing out, chest pain or shortness of breath, black or bloody stools or other (units unknown) (unknown) (unknown) (no date) (unknown) (unknown) prednisone 50 mg tablet 50 mg PO DAILY #5 tabs 10/08/22 (units unknown) (unknown) (unknown) (no date) (unknown) (unknown) prednisone 50 mg tablet (units unknown) (unknown) (unknown) (no date) (unknown) (unknown) quetiapine 300 mg tablet 300 mg PO DAILY 07/13/22 08/09/22 (units unknown) (unknown) (unknown) (no date) (unknown) (unknown) quetiapine 300 mg tablet (units unknown) (unknown) (unknown) (no date) (unknown) (unknown) second hand exposure : No (growing up as a child - not currently) (units unknown) (unknown) (unknown) (no date) (unknown) (unknown) shaky. No passing ou t or dizziness. Patient states she has had 1 similar (units unknown) (unknown) (unknown) (no date) (unknown) (unknown) she is on the Seroquel for insomnia discussed this is unlikely but possible (units unknown) (unknown) (unknown) (no date) (unknown) (unknown) she received Solu-Medrol, Benadryl 25 mg and Pepcid. She has not had any airway (units unknown) (unknown) (unknown) (no date) (unknown) (unknown) she takes Seroquel daily she states she is been on this for some time. She has (units unknown) (unknown) (unknown) (no date) (unknown) (unknown) skin other than the red spotty rash and itching. Patient states she feels (units unknown) (unknown) (unknown) (no date) (unknown) (unknown) source of symptoms she has not had any increase in dosage change. Discussed (units unknown) (unknown) (unknown) (no date) (unknown) (unknown) special renee needs: No (units unknown) (unknown) (unknown) (no date) (unknown) (unknown) starting to clear, she still is itchy but is having improvement. Patient notes (units unknown) (unknown) (unknown) (no date) (unknown) (unknown) states no recent ingestion of these medications she states no other new (units unknown) (unknown) (unknown) (no date) (unknown) (unknown) substance use type: does not use (units unknown) (unknown) (unknown) (no date) (unknown) (unknown) symmetrically (units unknown) (unknown) (unknown) (no date) (unknown) (unknown) symptoms. (units unknown) (unknown) (unknown) (no date) (unknown) (unknown) that she is aware of . Patient has had prior D+C denies any other surgeries. (units unknown) (unknown) (unknown) (no date) (unknown) (unknown) tolerate. Once your symptoms have resolved to can restart this to see if this (units unknown) (unknown) (unknown) (no date) (unknown) (unknown) upper and lower extremities (units unknown) (unknown) (unknown) (no date) (unknown) (unknown) went to bed about 8:00 a.m. last night she states she felt fine she woke up this (units unknown) (unknown) (unknown) (no date) (unknown) (unknown) with patient would take medications if not clearing would stop her Seroquel for (units unknown) (unknown) (unknown) (no date) (unknown) (unknown) woke up with these did not have them present last night when she went to bed at (units unknown) (unknown) Social History date description facility 2022-07-12 00:00 Ex-smoker (finding) [facility] 2022-07-13 00:00 Ex-smoker (finding) [facility] 2022-07-31 00:00 Ex-smoker (finding) [facility] 2022-08-01 00:00 Ex-smoker (finding) [facility] 2022-08-08 00:00 Ex-smoker (finding) [facility] 2022-10-08 00:00 Ex-smoker (finding) [facility] Vital Signs date measurement value units 2022-07-12 00:00 BMI 20.1 kg/m2 2022-07-12 00:00 [...] 36.61 C 2022-08-09 00:00 temperature_standard 97.9 F 2022-10-08 00:00 BMI 21.7 kg/m2 2022-10-08 00:00 BP_diastolic 65 mmHg 2022-10-08 00:00 BP_systolic 104 mmHg 2022-10-08 00:00 heart_rate 105 /min 2022-10-08 00:00 height_metric 157.48 cm 2022-10-08 00:00 height_standard 62 in 2022-10-08 00:00 o2_saturation 100 % 2022-10-08 00:00 respiration_rate 18 /min 2022-10-08 00:00 temperature_metric 36.56 C 2022-10-08 00:00 temperature_standard 97.8 F 2022-10-08 00:00 weight_metric 53.97 kg 2022-10-08 00:00 weight_standard 118.98 lb
[2022-10-10] MEDS ORDERED: DEXAMETHASONE 10 MG/ML VIAL IM STA (05:17)
[2022-10-10] MEDS ORDERED: ONDANSETRON ODT 4 MG TABLET TL STA (05:17)
[2022-10-10] MEDS ORDERED: EPINEPHrine 1 MG/ML AMP IM STA (05:18)
[2022-10-10] MEDS ORDERED: LORazepam 2 MG/ML VIAL IM STA ×2 (05:24→06:05)
[2022-10-10] MEDS ORDERED: LORazepam 2 MG/ML VIAL IVP STA ×2 (06:22→07:01)
[2022-10-10 08:16] VITALS: BP 96/60
== END 2022-10-10 08:21 | disposition home or self-care (01) ==
LOC: EDUNIT# → ED 04:49
DX: T78.40XA Allergy, unspecified, initial encounter (principal); F10.239 Alcohol dependence with withdrawal, unspecified
CPT/HCPCS: 96372; 96374; 96376; 99283; J2060; Q0162

== ENCOUNTER 2022-12-17 17:11 | Emergency (ER) | payer OTHER ==
--- NOTE | 2022-12-17 17:53 | ED Physician Documentation ---
History of Present Illness - Stated complaint Stated Complaint: ETOH - Chief complaint Chief Complaint: General - History obtained from History obtained from: Patient, Friend - History of Present Illness Timing: Today Pain level max: 0 Pain level now: 0 - Additonal information Additional information: Patient is a 32-year-old female, longstanding history of alcoholism brought in by her AA sponsor. She states that she has been drinking heavily today and is intoxicated. Her AA sponsor brought her here to "sober up". No vomiting. No suicidal or homicidal ideation. Patient does not want to go to detox currently. Nothing makes it better or worse. No headache. No abdominal pain. Patient denies any possibility of . 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: Ovarian cysts, Miscarriage(s) : None HEENT: None Psych: Depression, Other Musculoskeletal: None Derm: None - Past Surgical History Past Surgical History: Yes /WEED COOKING OPERATOR: Dilation and currettage - Present Medications Home Medications: Ambulatory Orders Medication Instructions Recorded Confirmed Quetiapine Fumarate [Seroquel] 300 mg PO DAILY 06/19/22 08/17/22 Sertraline [Zoloft] 50 mg PO DAILY 08/17/22 08/17/22 LORazepam [Ativan] 1 mg PO Q6H PRN #20 tablet 08/18/22 PHENobarbitaL [Phenobarbital] 30 mg PO QPM PRN 6 Days #6 tablet 08/18/22 LORazepam [Ativan] 1 - 2 mg PO Q6HR PRN #14 tablet 10/10/22 Ondansetron Odt [Zofran Odt] 4 mg TL Q6H PRN #14 tablet 10/10/22 Quetiapine Fumarate [Seroquel] 300 mg PO DAILY #5 tablet 12/17/22 chlordiazePOXIDE [Librium] 25 mg PO Q6H PRN #10 cap 12/17/22 - Allergies Allergies/Adverse Reactions: Allergies Allergy/AdvReac Type Severity Reaction Status Date / Time metoclopramide [From Reglan] Allergy Nausea Verified 12/17/22 17:22 hydrocodone bitartrate * AdvReac Mild Hives Verified 12/17/22 17:22 [From Lortab] - Social History Does the pt smoke?: No Smoking Status: Never smoker Does the pt drink ETOH?: Yes Does the pt have substance abuse?: No - Immunizations Immunizations are current?: Yes - POLST Patient has POLST: No PD ED PE NORMAL - Vitals Vital signs reviewed: Yes - General General: 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, No acute distress - HEENT HEENT: Moist mucous membranes - Neck Neck: Supple, no meningeal sign - Cardiac Cardiac: RRR, Strong equal pulses - Respiratory Respiratory: No respiratory distress, Clear bilaterally - Abdomen Abdomen: Soft, Non tender, Non distended - Derm Derm: Warm and dry - Extremities Extremities: No edema, No calf tenderness / cord - Neuro Neuro: 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 - Psych Psych: Normal mood, Normal affect Results - Vitals Vitals: Vital Signs - 24 hr 12/17/22 12/17/22 12/17/22 17:23 19:26 22:50 Temperature 37.4 C Heart Rate 111 H 96 87 Respiratory 22 18 16 Rate Blood Pressure 113/77 96/66 123/87 H O2 Saturation 99 100 98 Oxygen O2 Source Room air - Labs Labs: Laboratory Tests 12/17/22 12/17/22 12/17/22 17:52 17:52 21:46 WBC 5.3 RBC 4.53 Hgb 11.5 L Hct 35.8 L MCV 79.0 L MCH 25.4 L MCHC 32.1 RDW 14.8 Plt Count 354 MPV 9.2 Neut # (Auto) 2.9 Lymph # (Auto) 2.0 [place] # (Auto) 0.2 Eos # (Auto) 0.0 Baso # (Auto) 0.1 Absolute Nucleated RBC 0.00 Nucleated RBC % 0.0 Sodium 141 Potassium 3.9 Chloride 105 Carbon Dioxide 27 Anion Gap 9.0 BUN 5 L Creatinine 0.6 Estimated GFR (MDRD) 114 Glucose 108 H Calcium 9.2 Magnesium 1.8 Total Bilirubin 0.4 AST 23 ALT 7 L Alkaline Phosphatase 71 Total Creatine Kinase 144 Total Protein 8.0 Albumin 5.0 Globulin 3.0 Albumin/Globulin Ratio 1.7 Lipase 35 TSH 0.76 Urine Color YELLOW Urine Clarity SL. CLOUDY Urine pH 7.5 Ur Specific [place] 1.015 Urine Protein 30 H Urine Glucose (UA) NEGATIVE Urine Ketones NEGATIVE Urine Occult Blood NEGATIVE Urine Nitrite NEGATIVE Urine Bilirubin NEGATIVE Urine Urobilinogen 0.2 (NORMAL) Ur Leukocyte Esterase NEGATIVE Urine RBC 0-5 Urine WBC 4-5 Ur Squamous Epith Cells MOD Squamous H Urine Bacteria Many H Ur Microscopic Review INDICATED Urine Culture Comments NOT INDICATED Urine HCG, Qual NEGATIVE Salicylates < 1.5 Urine Opiates Screen NEGATIVE Ur Oxycodone Screen NEGATIVE Urine Methadone Screen NEGATIVE Ur Propoxyphene Screen NEGATIVE Acetaminophen < 0.1 Ur Barbiturates Screen NEGATIVE Ur Tricyclics Screen NEGATIVE Ur Phencyclidine Scrn NEGATIVE Ur Amphetamine Screen NEGATIVE U Methamphetamines Scrn NEGATIVE U Benzodiazepines Scrn NEGATIVE Urine Cocaine Screen NEGATIVE U Cannabinoids Screen NEGATIVE Ethyl Alcohol 328.7 PD Medical Decision Making - ED course Complexity details: reviewed results, re-evaluated patient, considered differential, d/w patient ED course: Patient was allowed to sober in the emergency department. She did complain of anxiety and was given a dose of Librium which seemed to help. She has a friend that will take her back to her sober living house. Patient does not want to go to detox or rehab. Patient speaks in clear sentences, no slurred speech. Ambulating without difficulty. Patient again refuses detox. She states she is out of her Seroquel, we will refill a few days worth for her. Also prescribe a small amount of Librium for her for home. She is informed that she needs to follow-up with her doctor tomorrow to discuss outpatient detox if she is going to continue to refuse inpatient detox or rehab. Patient will follow-up with her doctor for further care. Patient counseled regarding signs and symptoms for which I believe and urgent re-evaluation would be necessary. Patient with good understanding of and agreement to plan and is comfortable going home at this time This document was made in part using voice recognition software. While efforts are made to proofread this document, sound alike and grammatical errors may occur. Departure - Departure Disposition: 01 Home, Self Care Clinical Impression: Alcohol intoxication Qualifiers: Complication of substance-induced condition: uncomplicated Qualified Code(s): F10.920 - Alcohol use, unspecified with intoxication, uncomplicated Condition: Good Instructions: ED Alcohol Intoxication Follow-Up: Your,doctor in 1 week [Other] Prescriptions: chlordiazePOXIDE [Librium] 25 mg PO Q6H PRN #10 cap PRN Reason: Alcohol Withdrawal Quetiapine Fumarate [Seroquel] 300 mg PO DAILY #5 tablet Comments: Please follow-up with your doctor for further care. Please return if you worsen. It is important that you stop drinking alcohol. If you would like to detox, you can contact [facility] as they are a detox facility on the [place]. Contact: [facility] [address] [place] [id number] Fax: Forms: PCP List Discharge Date/Time: 12/17/22 22:50
--- OUTSIDE RECORDS SUMMARY | 2022-12-17 17:55 | EXTERNAL MEDICAL SUMMARY RPT | Continuity of Care Document ---
Author Name Unknown Address [address] [place] [address] Phone Organization [facility] Address [address] [place] [address] Phone Care Team Providers Care Business Services Clerk Name Role Phone Unavailable Unavailable Unavailable Tonia Schneider Unavailable Unavailable Allergies and Intolerances date description facility reaction severity (no date) hydrocodone [facility] (no reaction) (no s everity) (no date) metoclopramide [facility] (no reaction) (n o severity) Medications date description facility 2022-10-08 00:00 Prednisone [facility] 2022-10-08 00:00 Famotidine [facility] 2022-11-15 00:00 Cephalexin [facility] 2022-11-15 00:00 Quetiapine [facility] Problems date description facility 2022-10-08 00:00 Allergic reaction [facility] 2022-11-15 00:00 Urinary tract infection [facility] Results/Labs test date facility value unit notes Social History date description facility 2022-10-08 00:00 Ex-smoker (finding) [facility] 2022-11-15 00:00 Ex-smoker (finding) [facility] Vital Signs date measurement value units 2022-10-08 00:00 BMI 21.7 kg/m2 2022-10-08 00:00 BP_diastolic 65 mmHg 2022-10-08 00:00 BP_systolic 104 mmHg 2022-10-08 00:00 heart_rate 105 /min 2022-10-08 00:00 height_metric 157.48 cm 2022-10-08 00:00 height_standard 62 in 2022-10-08 00:00 o2_saturation 100 % 2022-10-08 00:00 respiration_rate 18 /min 2022-10-08 00:00 temperature_metric 36.56 C 2022-10-08 00:00 temperature_standard 97.8 F 2022-10-08 00:00 weight_metric 53.97 kg 2022-10-08 00:00 weight_standard 118.98 lb 2022-11-15 00:00 BMI 21.9 kg/m2 2022-11-15 00:00 BP_diastolic 57 mmHg 2022-11-15 00:00 BP_systolic 102 mmHg 2022-11-15 00:00 heart_rate 74 /min 2022-11-15 00:00 height_metric 157.48 cm 2022-11-15 00:00 height_standard 62 in 2022-11-15 00:00 o2_saturation 100 % 2022-11-15 00:00 respiration_rate 20 /min 2022-11-15 00:00 temperature_metric 36.33 C 2022-11-15 00:00 temperature_standard 97.4 F 2022-11-15 00:00 weight_metric 54.43 kg 2022-11-15 00:00 weight_standard 120 lb
[2022-12-17] MEDS: SODIUM CHLORIDE 0.9% 1,000 ML IV STA (18:00)
[2022-12-17 18:06] LABS: BASOPHILS # (AUTO) 0.1 10^3/uL (0.0-0.1); BASOPHILS % (AUTO) 1.3 %; EOSINOPHILS % (AUTO) 0.4 %; HCT - HEMATOCRIT 35.8 % (37.0-47.0); HGB - HEMOGLOBIN 11.5 g/dL (12.0-16.0); LYMPHOCYTES % (AUTO) 38.8 %; MEAN CORPUSCULAR HEMOGLOBIN 25.4 pg (27.0-31.0); MEAN CORPUSCULAR HGB CONC 32.1 g/dL (32.0-36.0); MEAN PLATELET VOLUME 9.2 fL (7.9-10.8); MONOCYTES # (AUTO) 0.2 10^3/uL (0.0-1.0); MONOCYTES % (AUTO) 3.8 %; NEUTROPHILS # (AUTO) 2.9 10^3/uL (1.5-6.6); NEUTROPHILS % (AUTO) 55.3 %; PLT - PLATELET COUNT 354 10^3/uL (130-450); RED BLOOD COUNT 4.53 10^6/uL (4.20-5.40); RED CELL DISTRIBUTION WIDTH 14.8 % (12.0-15.0); WHITE BLOOD COUNT 5.3 x10^3/uL (4.8-10.8)
[2022-12-17 18:21] LABS: ALBUMIN/GLOBULIN RATIO 1.7 (1.0-2.2); ALKALINE PHOSPHATASE 71 IU/L (42-121); ALT ALANINE AMINOTRANSFERASE 7 IU/L (10-60); AST ASPARTATE AMINOTRANSFERASE 23 IU/L (10-42); BILIRUBIN,TOTAL 0.4 mg/dL (0.2-1.0); BUN - BLOOD UREA NITROGEN 5 mg/dL (6-20); CALCIUM 9.2 mg/dL (8.5-10.3); CARBON DIOXIDE - CO2 27 mmol/L (21-32); CHLORIDE 105 mmol/L (101-111); CK- CREATINE KINASE 144 IU/L (30-223); CREATININE 0.6 mg/dL (0.6-1.3); ETOH - ETHANOL 328.7 mg/dL; GFR - MDRD 114 (>89); GLUCOSE 108 mg/dL (74-104); LIPASE 35 U/L (11-82); MAGNESIUM 1.8 mg/dL (1.7-2.3); POTASSIUM 3.9 mmol/L (3.5-4.5); SODIUM 141 mmol/L (135-145)
[2022-12-17 18:28] LABS: ACETAMINOPHEN < 0.1 ug/mL; SALICYLATE < 1.5 mg/dL
[2022-12-17 18:30] LABS: THYROID STIMULATING HORMONE 0.76 uIU/mL (0.34-5.60)
[2022-12-17] MEDS: ONDANSETRON 4 MG/2 ML VIAL IVP STA ×2 (18:32→21:08)
[2022-12-17] MEDS: chlordiazePOXIDE 25 MG CAPSULE PO STA (19:52)
[2022-12-17 21:51] LABS: MUDS CUTOFF CONCENTRATIONS CUTOFF CONC BELOW:
[2022-12-17 22:00] LABS: BILIRUBIN,URINE NEGATIVE (NEGATIVE); GLUCOSE, URINE (UA) NEGATIVE (NEGATIVE); KETONES,URINE (UA) NEGATIVE (NEGATIVE); LEUKOCYTE ESTERASE, URINE NEGATIVE (NEGATIVE); NITRITE,URINE NEGATIVE (NEGATIVE); OCCULT BLOOD,URINE NEGATIVE (NEGATIVE); PH,URINE 7.5 PH (5.0-7.5); PROTEIN,URINE 30 mg/dL (NEGATIVE); UROBILINOGEN,URINE 0.2 (NORMAL) E.U./dL (NORMAL)
[2022-12-17 22:01] LABS: HCG UR QUAL NEGATIVE
[2022-12-17 22:03] LABS: CLARITY,URINE SL. CLOUDY (CLEAR)
[2022-12-17 22:38] LABS: BACTERIA,URINE Many /HPF (None Seen); RBC,URINE 0-5 /HPF (0-5); SQUAMOUS EPITHELIAL CELL,UR MOD Squamous (<= Few)
[2022-12-17 22:39] LABS: AMPHETAMINE SCREEN,URINE NEGATIVE (NEGATIVE); BARBITURATE SCREEN,UR NEGATIVE (NEGATIVE); BENZODIAZEPINES SCREEN, URINE NEGATIVE (NEGATIVE); COCAINE SCREEN URINE NEGATIVE (NEGATIVE); METHADONE SCREEN, URINE NEGATIVE (NEGATIVE); METHAMPHETAMINES SCREEN, URINE NEGATIVE (NEGATIVE); OPIATE SCREEN, URINE NEGATIVE (NEGATIVE); OXYCODONE SCREEN, URINE NEGATIVE (NEGATIVE); PROPOXYPHENE SCREEN, URINE NEGATIVE (NEGATIVE); THC CANNABINOID SCREEN, URINE NEGATIVE (NEGATIVE); TRICYCLIC ANTIDEPRESSANT,URINE NEGATIVE (NEGATIVE)
[2022-12-17] MEDS: QUEtiapine 100 MG TABLET PO STA (22:43)
[2022-12-17 22:52] VITALS: BP 123/87; O2SAT 98
== END 2022-12-17 22:50 | disposition home or self-care (01) ==
LOC: ED 17:11
DX: F10.220 Alcohol dependence with intoxication, uncomplicated (principal); Y90.8 Blood alcohol level of 240 mg/100 ml or more; Z79.899 Other long term (current) drug therapy
CPT/HCPCS: 36415; 80053; 80306; 80307; 80320; 80329; 81001; 81003; 81025; 82550; 83690; 83735; 84443; 85025; 87086; 96374; 96376; 99283

== ENCOUNTER 2023-01-14 17:37 | Outpatient (CLI) | payer OTHER | END 2023-01-14 23:59 | disposition short-term general hospital (02) | LOC: EMS 17:37 | DX: F10.129 Alcohol abuse with intoxication, unspecified (principal); F32.A Depression, unspecified | CPT/HCPCS: A0425; A0429 ==

== ENCOUNTER 2023-01-17 06:30 | Emergency (ER) | payer OTHER ==
--- NOTE | 2023-01-17 07:27 | ED Physician Documentation ---
History of Present Illness - Stated complaint Stated Complaint: N/V/D/ABD PX - Chief complaint Chief Complaint: Abd Pain - History obtained from History obtained from: Patient - Additonal information Additional information: The patient comes to the emergency department chief complaint of vomiting and diarrhea that started a couple of days ago. She states that she cannot hold anything down, even clear liquids. The patient denies any fevers or chills. She states that she has just developed diffuse abdominal "soreness", which she thinks is from her vomiting and diarrhea. She states she is otherwise fairly healthy. No sick contacts. No suspicious food. No other complaints at this time. 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: Ovarian cysts, Miscarriage(s) : None HEENT: None Psych: Depression, Other Musculoskeletal: None Derm: None - Past Surgical History Past Surgical History: Yes /CUSTOMER SUCCESS REPRESENTATIVE: Dilation and currettage - Present Medications Home Medications: Ambulatory Orders Medication Instructions Recorded Confirmed Quetiapine Fumarate [Seroquel] 300 mg PO DAILY 06/19/22 08/17/22 Sertraline [Zoloft] 50 mg PO DAILY 08/17/22 08/17/22 LORazepam [Ativan] 1 mg PO Q6H PRN #20 tablet 08/18/22 PHENobarbitaL [Phenobarbital] 30 mg PO QPM PRN 6 Days #6 tablet 08/18/22 LORazepam [Ativan] 1 - 2 mg PO Q6HR PRN #14 tablet 10/10/22 Ondansetron Odt [Zofran Odt] 4 mg TL Q6H PRN #14 tablet 10/10/22 Quetiapine Fumarate [Seroquel] 300 mg PO DAILY #5 tablet 12/17/22 chlordiazePOXIDE [Librium] 25 mg PO Q6H PRN #10 cap 12/17/22 Quetiapine Fumarate [Seroquel] 300 mg PO DAILY #60 tablet 01/17/23 Sulfamethox/Trimeth 800/160 1 each PO BID #14 tablet 01/17/23 [Bactrim Ds 800/160] - Allergies Allergies/Adverse Reactions: Allergies Allergy/AdvReac Type Severity Reaction Status Date / Time metoclopramide [From Reglan] Allergy Nausea Verified 12/17/22 17:22 hydrocodone bitartrate * AdvReac Mild Hives Verified 12/17/22 17:22 [From Lortab] - Social History Does the pt smoke?: No Smoking Status: Never smoker Does the pt drink ETOH?: Yes Does the pt have substance abuse?: No - Immunizations Immunizations are current?: Yes - POLST Patient has POLST: No PD ED PE NORMAL - Vitals Vital signs reviewed: Yes - General General: 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, No acute distress, Well developed/nourished, Other (The patient appears moderately uncomfortable but otherwise in no apparent distress.) - HEENT HEENT: Atraumatic, PERRL, EOMI, Moist mucous membranes - Neck Neck: Supple, no meningeal sign - Cardiac Cardiac: RRR, No murmur - Respiratory Respiratory: No respiratory distress, Clear bilaterally - Abdomen Abdomen: Soft, Non distended, Other (Diffuse mild tenderness, no rebound or guarding.) - Derm Derm: Normal color, Warm and dry, No rash - Extremities Extremities: No deformity, No edema - Neuro Neuro: 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, Other (Grossly intact) - Psych Psych: Normal mood, Normal affect Results - Vitals Vitals: Vital Signs - 24 hr 01/17/23 01/17/23 01/17/23 06:38 08:40 10:14 Temperature 37.0 C 37.1 C Heart Rate 74 88 97 Respiratory 18 16 14 Rate Blood Pressure 105/73 105/79 110/73 O2 Saturation 100 98 100 Oxygen O2 Source Room air - Labs Labs: Laboratory Tests 01/17/23 01/17/23 01/17/23 07:24 07:24 09:23 WBC 2.5 L RBC 4.56 Hgb 11.5 L Hct 36.6 L MCV 80.3 L MCH 25.2 L MCHC 31.4 L RDW 13.9 Plt Count 293 MPV 9.7 Neut # (Auto) 0.9 L Lymph # (Auto) 1.1 L [place] # (Auto) 0.4 Eos # (Auto) 0.1 Baso # (Auto) 0.0 Absolute Nucleated RBC 0.00 Nucleated RBC % 0.0 Manual Slide Review Indicated Platelet Estimate NORMAL (130-450,000) Platelet Morphology NORMAL APPEARANCE RBC Morph Micro Appear NORMAL APPEARANCE Sodium 139 Potassium 3.4 L Chloride 105 Carbon Dioxide 23 Anion Gap 11.0 BUN 8 Creatinine 0.8 Estimated GFR (MDRD) 82 L Glucose 92 Calcium 9.9 Total Bilirubin 0.5 AST 32 ALT 9 L Alkaline Phosphatase 77 Total Protein 7.4 Albumin 4.7 Globulin 2.7 Albumin/Globulin Ratio 1.7 Lipase 56 Urine Color YELLOW Urine Clarity SL. CLOUDY Urine pH 6.0 Ur Specific [place] >=1.030 H Urine Protein TRACE Urine Glucose (UA) NEGATIVE Urine Ketones 15 H Urine Occult Blood NEGATIVE Urine Nitrite POSITIVE H Urine Bilirubin NEGATIVE Urine Urobilinogen 0.2 (NORMAL) Ur Leukocyte Esterase TRACE H Urine RBC 0-5 Urine WBC 0-3 Ur Squamous Epith Cells FEW Squamous Urine Bacteria Many H Urine Mucus Moderate Strands Ur Microscopic Review INDICATED Urine Culture Comments INDICATED Urine HCG, Qual NEGATIVE PD Medical Decision Making - ED course Complexity details: reviewed results, re-evaluated patient, considered differential, d/w patient ED course: The patient was treated symptomatically with IM droperidol, and worked up with laboratory studies including ER abdominal panel, UA and CBC. We were unable to get an IV on the patient, and so medications were given IM. Patient was feeling much better on reevaluation and was able to take her Seroquel without difficulty. She was found to have a UTI and was given Bactrim for this. Prescriptions were sent for the patient's Bactrim and Seroquel, as well. We have discussed home management of the symptoms, as well as usual indications for return. Departure - Departure Disposition: 01 Home, Self Care Clinical Impression: Urinary tract infection Qualifiers: Urinary tract infection type: acute cystitis Hematuria presence: without hematuria Qualified Code(s): N30.00 - Acute cystitis without hematuria Nausea & vomiting Qualifiers: Vomiting type: bilious vomiting Qualified Code(s): R11.14 - Bilious vomiting Condition: Stable Instructions: ED UTI Cystitis Female, ED Nausea Vomiting Prescriptions: Sulfamethox/Trimeth 800/160 [Bactrim Ds 800/160] 1 each PO BID #14 tablet Quetiapine Fumarate [Seroquel] 300 mg PO DAILY #60 tablet Comments: Overall, your laboratory studies look good. You have been treated with medication for nausea today, as well as started back on your Seroquel and given a dose of antibiotics for urinary tract infection. A prescription for your Seroquel and antibiotics has been electronically transmitted to the [facility] in [place]. Please pick these prescriptions up today and take your next dose of antibiotics this afternoon. Please try to get plenty of fluids and small amounts at a time, in the form of clear liquids. You may take your Zofran at home as needed. Please follow-up with your primary doctor as soon as possible. Forms: PCP List Discharge Date/Time: 01/17/23 10:37
[2023-01-17 07:28] LABS: BASOPHILS % (AUTO) 1.2 %; EOSINOPHILS # (AUTO) 0.1 10^3/uL (0.0-0.7); EOSINOPHILS % (AUTO) 4.5 %; HCT - HEMATOCRIT 36.6 % (37.0-47.0); HGB - HEMOGLOBIN 11.5 g/dL (12.0-16.0); LYMPHOCYTES # (AUTO) 1.1 10^3/uL (1.5-3.5); LYMPHOCYTES % (AUTO) 43.1 %; MEAN CORPUSCULAR HEMOGLOBIN 25.2 pg (27.0-31.0); MEAN CORPUSCULAR HGB CONC 31.4 g/dL (32.0-36.0); MEAN CORPUSCULAR VOLUME 80.3 fL (81.0-99.0); MEAN PLATELET VOLUME 9.7 fL (7.9-10.8); MONOCYTES # (AUTO) 0.4 10^3/uL (0.0-1.0); MONOCYTES % (AUTO) 14.2 %; NEUTROPHILS # (AUTO) 0.9 10^3/uL (1.5-6.6); NEUTROPHILS % (AUTO) 36.6 %; PLT - PLATELET COUNT 293 10^3/uL (130-450); RED BLOOD COUNT 4.56 10^6/uL (4.20-5.40); RED CELL DISTRIBUTION WIDTH 13.9 % (12.0-15.0); WHITE BLOOD COUNT 2.5 x10^3/uL (4.8-10.8)
[2023-01-17 07:34] LABS: SLIDE REVIEW? Indicated
[2023-01-17] MEDS: DROPERIDOL 5 MG/2 ML VIAL IVP STA ×2 (07:40→08:30)
[2023-01-17] MEDS: SODIUM CHLORIDE 0.9% 1,000 ML IV STA ×2 (07:43→08:30)
[2023-01-17 07:54] LABS: ALBUMIN 4.7 g/dL (3.2-5.5); ALBUMIN/GLOBULIN RATIO 1.7 (1.0-2.2); BILIRUBIN,TOTAL 0.5 mg/dL (0.2-1.0); CALCIUM 9.9 mg/dL (8.5-10.3); CREATININE 0.8 mg/dL (0.6-1.3); POTASSIUM 3.4 mmol/L (3.5-4.5); TOTAL PROTEIN 7.4 g/dL (6.4-8.9)
[2023-01-17 08:00] LABS: PLATELET ESTIMATE, MANUAL NORMAL (130-450,000) (NORMAL); PLATELET MORPHOLOGY NORMAL APPEARANCE (NORMAL); RBC MORPHOLOGY (MULTIPLE) NORMAL APPEARANCE (NORMAL)
[2023-01-17] MEDS ORDERED: DROPERIDOL 5 MG/2 ML VIAL IM STA (08:26)
[2023-01-17] MEDS ORDERED: QUEtiapine 100 MG TABLET PO STA (08:49)
[2023-01-17 09:34] LABS: BILIRUBIN,URINE NEGATIVE (NEGATIVE); GLUCOSE, URINE (UA) NEGATIVE (NEGATIVE); KETONES,URINE (UA) 15 mg/dL (NEGATIVE); LEUKOCYTE ESTERASE, URINE TRACE (NEGATIVE); NITRITE,URINE POSITIVE (NEGATIVE); OCCULT BLOOD,URINE NEGATIVE (NEGATIVE); PROTEIN,URINE TRACE mg/dL (NEGATIVE); UROBILINOGEN,URINE 0.2 (NORMAL) E.U./dL (NORMAL)
[2023-01-17 09:42] LABS: CLARITY,URINE SL. CLOUDY (CLEAR); HCG UR QUAL NEGATIVE
[2023-01-17 09:44] LABS: WBC,URINE 0-3 /HPF (0-5)
[2023-01-17 09:45] LABS: RBC,URINE 0-5 /HPF (0-5); SQUAMOUS EPITHELIAL CELL,UR FEW Squamous (<= Few)
[2023-01-17 09:46] LABS: BACTERIA,URINE Many /HPF (None Seen); MUCUS,URINE Moderate Strands
[2023-01-17 10:18] VITALS: BP 110/73; O2SAT 100
[2023-01-17] MEDS ORDERED: SULFAMETH/TRIMETH DS 800/160 MG TABLET PO STA (10:22)
== END 2023-01-17 10:37 | disposition home or self-care (01) ==
LOC: ED 06:30
DX: N30.00 Acute cystitis without hematuria (principal); R11.14 Bilious vomiting
CPT/HCPCS: 36415; 80053; 81001; 81025; 83690; 85025; 87077; 87086; 87181; 96372; 99283; 99284; A9270; 81003

== ENCOUNTER 2023-01-19 08:57 | Emergency (ER) | payer OTHER ==
[2023-01-19 09:18] VITALS: O2SAT 100
[2023-01-19 10:08] LABS: EOSINOPHILS % (AUTO) 0.5 %; HGB - HEMOGLOBIN 11.6 g/dL (12.0-16.0); LYMPHOCYTES # (AUTO) 0.9 10^3/uL (1.5-3.5); LYMPHOCYTES % (AUTO) 22.3 %; MEAN CORPUSCULAR HEMOGLOBIN 24.8 pg (27.0-31.0); MEAN CORPUSCULAR HGB CONC 31.4 g/dL (32.0-36.0); MEAN CORPUSCULAR VOLUME 79.1 fL (81.0-99.0); MONOCYTES # (AUTO) 0.2 10^3/uL (0.0-1.0); MONOCYTES % (AUTO) 4.4 %; NEUTROPHILS # (AUTO) 2.8 10^3/uL (1.5-6.6); NEUTROPHILS % (AUTO) 71.5 %; PLT - PLATELET COUNT 363 10^3/uL (130-450); RED BLOOD COUNT 4.68 10^6/uL (4.20-5.40); RED CELL DISTRIBUTION WIDTH 13.9 % (12.0-15.0); WHITE BLOOD COUNT 3.9 x10^3/uL (4.8-10.8)
[2023-01-19 10:22] LABS: ALBUMIN 5.1 g/dL (3.2-5.5); ALBUMIN/GLOBULIN RATIO 1.8 (1.0-2.2); BILIRUBIN,TOTAL 0.5 mg/dL (0.2-1.0); CREATININE 0.7 mg/dL (0.6-1.3); POTASSIUM 3.5 mmol/L (3.5-4.5); TOTAL PROTEIN 7.9 g/dL (6.4-8.9)
[2023-01-19] MEDS ORDERED: SODIUM CHLORIDE 0.9% 1,000 ML IV STA (10:40)
[2023-01-19] MEDS ORDERED: PROMETHAZINE INJ 25 MG in SODIUM CHLORIDE 0.9% 50 ML IV STA (10:40)
[2023-01-19] MEDS ORDERED: THIAMINE INJ 100 MG, FOLIC ACID INJ 1 MG in SODIUM CHLORIDE 0.9% 1,000 ML IV STA (10:43)
--- NOTE | 2023-01-19 10:44 | ED Physician Documentation ---
PD HPI NVD - Stated complaint Stated Complaint: N/V/DIZZY - Chief complaint Chief Complaint: Abd Pain - History obtained from History obtained from: Patient - History of Present Illness Timing - onset: How many days ago (5) Timing - duration: Days (5) Timing - details: Gradual onset, Still present Associated symptoms: Dizzy, Loss of appetite, Other (shaking) Contributing factors: Alcohol use Improved by: Vomiting Similar symptoms before: Diagnosis (alcohol withdrawal) Recently seen: Emergency Dept - Additonal information Additional information: 32-year-old Sarah monaco was seen in the emergency department 3 days ago diagnosed with a urinary tract infection and started on Septra. She was going through alcohol withdrawal at the time. She was able to take the dose of Septra given to her the night of her evaluation and she was able to sleep well that night the next morning she took a second dose began to have vomiting by noon and has had trouble with vomiting since. She has not had any relief with Zofran. She denies cannabis use. She does not usually get urinary tract infection and she has no symptoms now did not have symptoms to begin with. Her urine did grow the pathologic organism sensitive to the septra she was on. She states its been 1 week since she has had any alcohol she still feels shaky and worn out. Her prior experience with alcohol withdrawal has usually been a shorter version. She indicates she did not expect to have the symptoms be related to withdrawal as she was not drinking as heavily or for as long as she had been prior to discontinuing use. She is able to give history at the end of the visit to indicate that she feels that the antibiotic may have caused the increase in nausea itself. Review of Systems Constitutional: denies: Fever Eyes: denies: Decreased vision Ears: denies: Ear pain Nose: denies: Rhinorrhea / runny nose, Congestion Throat: denies: Sore throat Cardiac: denies: Chest pain / pressure, Palpitations Respiratory: denies: Dyspnea, Cough GI: reports: Nausea, Vomiting. denies: Abdominal Pain, Constipation, Diarrhea : denies: Dysuria, Frequency PD PAST MEDICAL HISTORY - Past Medical History Past Medical History: Yes Cardiovascular: None Respiratory: None Neuro: Other Endocrine/Autoimmune: None GI: None NEONATAL DOCTOR: Ovarian cysts, Miscarriage(s) : None HEENT: None Psych: Depression, Other Musculoskeletal: None Derm: None - Past Surgical History Past Surgical History: Yes /NEONATAL DOCTOR: Dilation and currettage - Present Medications Home Medications: Ambulatory Orders Medication Instructions Recorded Confirmed Sulfamethox/Trimeth 800/160 1 each PO BID #14 tablet 01/17/23 01/19/23 [Bactrim Ds 800/160] Promethazine [Phenergan] 25 mg PO Q6H PRN #10 tab 01/19/23 Quetiapine Fumarate [Seroquel] 300 mg PO DAILY PM 01/19/23 01/19/23 - Allergies Allergies/Adverse Reactions: Allergies Allergy/AdvReac Type Severity Reaction Status Date / Time metoclopramide [From Reglan] Allergy Nausea Verified 01/19/23 09:11 hydrocodone bitartrate * AdvReac Mild Hives Verified 01/19/23 09:11 [From Lortab] - Social History Does the pt smoke?: No Smoking Status: Never smoker Does the pt drink ETOH?: Yes Does the pt have substance abuse?: No - Immunizations Immunizations are current?: Yes - POLST Patient has POLST: No PD ED PE NORMAL - Vitals Vital signs reviewed: Yes (Wide pulse pressure) - General General: 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, Well developed/nourished, Other (Young female appears withdrawn and in no distress) - HEENT HEENT: Atraumatic, PERRL, EOMI, Other (Dry mucous membranes) - Neck Neck: Supple, no meningeal sign, No bony TTP - Cardiac Cardiac: RRR, No murmur - Respiratory Respiratory: No respiratory distress, Clear bilaterally - Abdomen Abdomen: Normal bowel sounds, Soft, Non tender, Non distended, No organomegaly - Back Back: No CVA TTP, No spinal TTP - Derm Derm: Normal color, Warm and dry, No rash - Extremities Extremities: No deformity, No edema - Neuro Neuro: 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, 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, No motor deficit, No sensory deficit, Normal speech Eye Opening: Spontaneous Motor: Obeys Commands Verbal: Oriented GCS Score: 15 - Psych Psych: Normal mood, Normal affect Results - Vitals Vitals: Vital Signs - 24 hr 01/19/23 01/19/23 01/19/23 09:06 11:20 12:56 Temperature 36.5 C 36.8 C Heart Rate 95 80 76 Respiratory 20 20 16 Rate Blood Pressure 110/59 L 105/71 106/72 O2 Saturation 100 100 100 Oxygen O2 Source Room air - Labs Labs: Laboratory Tests 01/19/23 01/19/23 01/19/23 10:00 10:00 10:45 WBC 3.9 L RBC 4.68 Hgb 11.6 L Hct 37.0 MCV 79.1 L MCH 24.8 L MCHC 31.4 L RDW 13.9 Plt Count 363 MPV 9.0 Neut # (Auto) 2.8 Lymph # (Auto) 0.9 L [place] # (Auto) 0.2 Eos # (Auto) 0.0 Baso # (Auto) 0.0 Absolute Nucleated RBC 0.00 Nucleated RBC % 0.0 Sodium 137 Potassium 3.5 Chloride 102 Carbon Dioxide 25 Anion Gap 10.0 BUN 5 L Creatinine 0.7 Estimated GFR (MDRD) 96 Glucose 107 H Calcium 10.0 Total Bilirubin 0.5 AST 34 ALT 13 Alkaline Phosphatase 71 Total Protein 7.9 Albumin 5.1 Globulin 2.8 Albumin/Globulin Ratio 1.8 Lipase 41 Urine Color YELLOW Urine Clarity CLEAR Urine pH 5.5 Ur Specific [place] 1.020 Urine Protein NEGATIVE Urine Glucose (UA) NEGATIVE Urine Ketones 40 H Urine Occult Blood NEGATIVE Urine Nitrite NEGATIVE Urine Bilirubin NEGATIVE Urine Urobilinogen 0.2 (NORMAL) Ur Leukocyte Esterase NEGATIVE Ur Microscopic Review NOT INDICATED Urine Culture Comments NOT INDICATED Urine HCG, Qual NEGATIVE Procedures - IVC sono (time) 1035 Bedside IVC sono: IVC measures (cm) (0.91), Dehydration (est 2 liter deficit) PD Medical Decision Making - ED course Complexity details: reviewed results, re-evaluated patient, considered differential, d/w patient Reviewed Lab Results: We reviewed a complete blood count showing a normal white blood cell count normal hemoglobin hematocrit and platelets. Chemistries were unremarkable normal electrolytes normal kidney and liver function urinalysis is with a specific gravity 1.020 and negative for any sign of infection negative leukocyte Estrace negative nitrate negative hCG. My interpretation of these benign- appearing laboratory results with a clear appearing urine are that the patient has a resolved infection. Interrogation of the inferior vena cava led to the diagnosis of significant dehydration. ED course: 32-year-old female with nausea and vomiting for 3 days has not had relief with Zofran. She appears significantly dehydrated on interrogation the inferior vena cava with POCUS and she is administered intravenous saline. She is administered phenergan for nausea with resolution. She is administered a second liter of saline with thiamine and folate. At the conclusion of treatment the patient feels markedly improved and wants to go home. I have indicated the patient that we should discontinue the use of the antibiotic and I will provide some Phenergan for her on a as needed basis. Departure - Departure Disposition: Home, Self Care Clinical Impression: Dehydration Condition: Stable Instructions: ED Dehydration Prescriptions: Promethazine [Phenergan] 25 mg PO Q6H PRN #10 tab PRN Reason: Nausea / Vomiting Comments: Sarah, today it looks like you are significantly dehydrated and we have provided some intravenous fluid which I believe is helped quite a bit. Today we found a clean appearing urine and it appears that the pathologic infection you had is resolved. My recommendation is to discontinue the use of the antibiotic and increase your fluid intake. I have E scribed some Phenergan for you to the [facility] in [place]. Forms: PCP List Discharge Date/Time: 01/19/23 12:56
[2023-01-19 10:53] LABS: GLUCOSE, URINE (UA) NEGATIVE (NEGATIVE); KETONES,URINE (UA) 40 mg/dL (NEGATIVE); LEUKOCYTE ESTERASE, URINE NEGATIVE (NEGATIVE); NITRITE,URINE NEGATIVE (NEGATIVE); OCCULT BLOOD,URINE NEGATIVE (NEGATIVE); PH,URINE 5.5 PH (5.0-7.5); PROTEIN,URINE NEGATIVE (NEGATIVE); UROBILINOGEN,URINE 0.2 (NORMAL) E.U./dL (NORMAL)
[2023-01-19 10:54] LABS: BILIRUBIN,URINE NEGATIVE (NEGATIVE); CLARITY,URINE CLEAR (CLEAR); HCG UR QUAL NEGATIVE; ICTOTEST,URINE NEGATIVE
[2023-01-19 12:59] VITALS: BP 106/72
== END 2023-01-19 12:56 | disposition home or self-care (01) ==
LOC: ED 08:57
DX: E86.0 Dehydration (principal); Z79.899 Other long term (current) drug therapy
CPT/HCPCS: 36415; 80053; 81003; 81025; 83690; 85025; 96365; 96375; 99283; 99284; J3411; J7040; 81001; 87086

== ENCOUNTER 2023-06-23 10:25 | Outpatient (CLI) | payer OTHER | END 2023-06-23 10:26 | disposition critical access hospital (66) | LOC: EMS 10:25 | DX: F10.10 Alcohol abuse, uncomplicated (principal); F14.10 Cocaine abuse, uncomplicated | CPT/HCPCS: A0425; A0429 ==

== ENCOUNTER 2023-06-23 10:50 | Emergency (ER) | payer OTHER ==
--- NOTE | 2023-06-23 11:09 | ED Physician Documentation ---
PD HPI MHE - Stated complaint Stated Complaint: DETOX - Chief complaint Chief Complaint: General - History obtained from History obtained from: Patient, EMS - History of Present Illness Primary symptom: Anxiety, Other (alcohol and substance use with altered mentation last night into today.). No: Suicidal ideation, Psychosis Timing - onset: Today, Last night Contributing factors: Substance abuse - ETOH Similar symptoms before: Diagnosis (History of alcohol use disorder with alcoholism. She claims sobriety for the past 6 months and drink heavily starting last night into today associated with some possible cocaine use snorting as well. This was trying to help another person with alcohol use but ended up drinking together.) Recently seen: Not recently seen Review of Systems Constitutional: denies: Fever Nose: denies: Rhinorrhea / runny nose, Congestion Throat: denies: Sore throat Respiratory: denies: Cough GI: denies: Abdominal Pain, Vomiting, Bloody / black stool Psychiatric: reports: Anxiety. denies: Depressed, Suicidal PD PAST MEDICAL HISTORY - Past Medical History Past Medical History: Yes Cardiovascular: None Respiratory: None Neuro: Other Endocrine/Autoimmune: None GI: None MEDICAL OFFICE REPRESENTATIVE: Ovarian cysts, Miscarriage(s) : None HEENT: None Psych: Depression, Other Musculoskeletal: None Derm: None - Past Surgical History Past Surgical History: Yes /MEDICAL OFFICE REPRESENTATIVE: Dilation and currettage - Present Medications Home Medications: Ambulatory Orders Medication Instructions Recorded Confirmed Quetiapine Fumarate [Seroquel] 300 mg PO DAILY PM 01/19/23 06/23/23 LORazepam [Ativan] 1 mg PO Q6H PRN #14 tablet 06/23/23 Ondansetron Odt [Zofran] 4 mg TL Q6H PRN #10 tablet 06/23/23 - Allergies Allergies/Adverse Reactions: Allergies Allergy/AdvReac Type Severity Reaction Status Date / Time metoclopramide [From Reglan] Allergy Nausea Verified 01/19/23 09:11 hydrocodone bitartrate * AdvReac Mild Hives Verified 01/19/23 09:11 [From Lortab] - Social History Does the pt smoke?: No Smoking Status: Never smoker Does the pt drink ETOH?: Yes Does the pt have substance abuse?: Yes Substance Use and Type: Cocaine/Crack - Immunizations Immunizations are current?: Yes - POLST Patient has POLST: No PD ED PE NORMAL - Vitals Vital signs reviewed: Yes - General General: No acute distress, Well developed/nourished. No: 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 (person and place, but not time initially. Some slurring of speech c/w intoxication. No head trauma noted. ) - HEENT HEENT: Atraumatic - Neck Neck: Supple, no meningeal sign, No adenopathy - Cardiac Cardiac: RRR, No murmur - Respiratory Respiratory: No respiratory distress, Clear bilaterally - Abdomen Abdomen: Normal bowel sounds, Non tender, Non distended - Derm Derm: Normal color, Warm and dry - Extremities Extremities: Normal ROM s pain - Neuro Eye Opening: Spontaneous Motor: Obeys Commands Verbal: Confused GCS Score: 14 Results - Vitals Vitals: Vital Signs - 24 hr 06/23/23 06/23/23 06/23/23 10:54 11:01 12:53 Heart Rate 91 83 93 Respiratory 18 96 H 18 Rate Blood Pressure 105/71 90/67 78/55 L O2 Saturation 100 100 97 06/23/23 06/23/23 06/23/23 13:18 15:00 15:52 Heart Rate 97 97 78 Respiratory 16 16 16 Rate Blood Pressure 90/53 L 83/57 L 90/72 O2 Saturation 98 100 98 Oxygen O2 Source Room air - Labs Labs: Laboratory Tests 06/23/23 06/23/23 11:25 11:25 WBC 6.1 RBC 4.24 Hgb 9.7 L Hct 32.2 L MCV 75.9 L MCH 22.9 L MCHC 30.1 L RDW 15.9 H Plt Count 330 MPV 10.0 Neut # (Auto) 4.4 Lymph # (Auto) 1.3 L [place] # (Auto) 0.2 Eos # (Auto) 0.0 Baso # (Auto) 0.1 Absolute Nucleated RBC 0.00 Nucleated RBC % 0.0 Sodium 143 Potassium 3.6 Chloride 110 Carbon Dioxide 26 Anion Gap 7.0 BUN 8 Creatinine 0.7 Estimated GFR (MDRD) 96 Glucose 108 H Calcium 8.8 Magnesium 2.0 Total Bilirubin 0.2 AST 18 ALT 5 L Alkaline Phosphatase 55 Total Creatine Kinase 163 Total Protein 7.0 Albumin 4.5 Globulin 2.5 Albumin/Globulin Ratio 1.8 Lipase 71 TSH 1.07 Salicylates < 1.5 Acetaminophen 0.2 Ethyl Alcohol 337.0 PD Medical Decision Making - ED course Complexity details: re-evaluated patient (she is more alert and conversant and interacts well. She declines detox/programs. I did offer Rx for nausea and also some for withdrawal sympotms. She had resumed alcohol use just the past days, so less likely to have withdrawal symptoms I would hope. Friend is here in ED with her. ), considered differential (History of long-term alcohol use disorder claiming sobriety for the last 6 months and drink with another person overnight last night into today. Having altered mentation and anxiety. Some nausea. EMS brought her to the ER. Initially asking for detox.), d/w patient, d/w remediation consultant (Social Work - who states the patient was conversant and appropriate. Declined desire for Rehab/Detox or other progrmas. Wants to go home. ) ED course: The patient was intoxicated with slurring of speech but still able to relate history. Initially with me she was asking for help with detox. However subsequently with social work, she stated she just wanted to go home when sober enough and was requesting medication for anxiety. She declined alcohol detox or rehab. She denied suicidal ideation. We will allow the patient to have time in the ER for sobering as she seemed a bit coordinate with moving or trying to stand and we did not want to see any falls or harm. She is given some IV fluids just for hydration. Departure - Departure Disposition: 01 Home, Self Care Clinical Impression: Alcohol use disorder, Anemia Alcohol intoxication Qualifiers: Complication of substance-induced condition: uncomplicated Qualified Code(s): F10.920 - Alcohol use, unspecified with intoxication, uncomplicated Condition: Stable Record reviewed to determine appropriate education?: Yes Instructions: ED Alcohol Intoxication Prescriptions: LORazepam [Ativan] 1 mg PO Q6H PRN #14 tablet PRN Reason: Alcohol Withdrawal Ondansetron Odt [Zofran] 4 mg TL Q6H PRN #10 tablet PRN Reason: Nausea / Vomiting Comments: Avoid alcohol of course. Continue usual medicines. Small frequent fluids to maintain hydration. Ondansetron if needed for nausea as you may have an upset stomach in the short-term from the alcohol ingestion. If you do are to have any withdrawal type symptoms/severe anxiety, I did prescribe lorazepam/Ativan to use every 6-8 hours if needed in the short-term to help with the symptoms. Take it tapering the over several days to help with symptoms as needed. I sent prescription to your preferred pharmacy, [facility]. Return if needed. Forms: PCP List Discharge Date/Time: 06/23/23 15:38
[2023-06-23 11:29] LABS: BASOPHILS # (AUTO) 0.1 10^3/uL (0.0-0.1); BASOPHILS % (AUTO) 1.5 %; EOSINOPHILS % (AUTO) 0.5 %; HCT - HEMATOCRIT 32.2 % (37.0-47.0); HGB - HEMOGLOBIN 9.7 g/dL (12.0-16.0); LYMPHOCYTES # (AUTO) 1.3 10^3/uL (1.5-3.5); LYMPHOCYTES % (AUTO) 21.5 %; MEAN CORPUSCULAR HEMOGLOBIN 22.9 pg (27.0-31.0); MEAN CORPUSCULAR HGB CONC 30.1 g/dL (32.0-36.0); MEAN CORPUSCULAR VOLUME 75.9 fL (81.0-99.0); MONOCYTES # (AUTO) 0.2 10^3/uL (0.0-1.0); MONOCYTES % (AUTO) 3.4 %; NEUTROPHILS # (AUTO) 4.4 10^3/uL (1.5-6.6); NEUTROPHILS % (AUTO) 72.8 %; PLT - PLATELET COUNT 330 10^3/uL (130-450); RED BLOOD COUNT 4.24 10^6/uL (4.20-5.40); RED CELL DISTRIBUTION WIDTH 15.9 % (12.0-15.0); WHITE BLOOD COUNT 6.1 x10^3/uL (4.8-10.8)
[2023-06-23] MEDS: DROPERIDOL 5 MG/2 ML VIAL IVP STA (11:32)
[2023-06-23] MEDS: SODIUM CHLORIDE 0.9% 1,000 ML IV STA ×2 (11:32→13:16)
[2023-06-23 11:46] LABS: ACETAMINOPHEN 0.2 ug/mL; ALBUMIN 4.5 g/dL (3.2-5.5); ALBUMIN/GLOBULIN RATIO 1.8 (1.0-2.2); ALKALINE PHOSPHATASE 55 IU/L (42-121); ALT ALANINE AMINOTRANSFERASE 5 IU/L (10-60); AST ASPARTATE AMINOTRANSFERASE 18 IU/L (10-42); BILIRUBIN,TOTAL 0.2 mg/dL (0.2-1.0); BUN - BLOOD UREA NITROGEN 8 mg/dL (6-20); CALCIUM 8.8 mg/dL (8.5-10.3); CARBON DIOXIDE - CO2 26 mmol/L (21-32); CHLORIDE 110 mmol/L (101-111); CK- CREATINE KINASE 163 IU/L (30-223); CREATININE 0.7 mg/dL (0.6-1.3); GFR - MDRD 96 (>89); GLUCOSE 108 mg/dL (74-104); LIPASE 71 U/L (11-82); POTASSIUM 3.6 mmol/L (3.5-4.5); SODIUM 143 mmol/L (135-145)
[2023-06-23 11:47] LABS: SALICYLATE < 1.5 mg/dL
[2023-06-23 12:00] LABS: THYROID STIMULATING HORMONE 1.07 uIU/mL (0.34-5.60)
[2023-06-23 16:02] VITALS: BP 90/72; O2SAT 98
== END 2023-06-23 15:38 | disposition home or self-care (01) ==
LOC: ED 10:50
DX: F10.920 Alcohol use, unspecified with intoxication, uncomplicated (principal); D64.9 Anemia, unspecified
CPT/HCPCS: 36415; 80053; 80307; 80320; 80329; 82550; 83690; 83735; 84443; 85025; 96361; 96374; 99283